=== PATIENT | female | born 1965 | race African-American/Black ===

== ENCOUNTER → 2017-06-29 | Outpatient (CLI) | payer OTHER ==
[~2017-06-29] MED LIST: NADO40TA PO
--- NOTE | 2017-06-29 18:15 | Diagnostic Imaging Report ---
INDICATION: Routine screening. Comparison is made with prior exam from 04/29/2014 and 04/17/2012. The current study was also evaluated with a Computer Aided Detection (CAD) system. FINDINGS: Scattered fibroglandular densities are noted bilaterally. There are benign calcifications bilaterally. No dominant mass or malignant-appearing microcalcifications are seen. The axillae are unremarkable. IMPRESSION: No mammographic features suspicious for malignancy are identified. ACR BI-RADS Category 2: Benign findings. Result letter will be mailed to the patient. Note: At least 10% of breast cancer is not imaged by mammography. Dictated by: Dictated on workstation # [id number]
== END ==
LOC: RAD 08:47
PROVIDERS: ATTEND Nurse Practitioner Family
DX: Z12.31 Encounter for screening mammogram for malignant neoplasm of breast (principal)
CPT/HCPCS: 77067

== ENCOUNTER 2018-02-02 23:12 | Emergency (ER) | payer MEDICAID ==
[~2018-02-02] VITALS: Ht 170.2 cm; Wt 68.0 kg
--- OUTSIDE RECORDS SUMMARY | 2018-02-02 23:34 | XMS REPORT ---
Author Author SUNNY WONG [facility] Address [address] [place] [address] Care Team Providers Care Network Support Analyst Name Role Phone SUNNY WONG Unavailable PROBLEMS Type Condition ICD9-CM Code [id number] Code Onset Dates Condition Status SNOMED Code Problem Lumbago with sciatica, left side M54.42 Active 499121169 Problem Tachycardia with heart rate 121-140 beats per minute R00.0 Active 5254968 Problem Controlled type 2 diabetes mellitus without complication, without long -term current use of insulin E11.9 Active 154709063 Problem Gait disturbance R26.9 Active 46114710 Problem Lumbago with sciatica, right side M54.41 Active 854288458 Problem Enlarged thyroid gland E04.9 Active 1041824 Problem Body mass index (BMI) of 45.0-49.9 in adult Z68.42 Active 971442231 Problem Morbid (severe) obesity due to excess calories E66.01 Active 268840502 Problem Dermatomyositis M33.90 Active 135232347 Problem Mood disorder F39 Active 79672995 Problem Diabetes type 2, controlled E11.9 Active 20693966 Problem Menopause Z78.0 Active 722157953 Problem Allergic rhinitis due to pollen J30.1 Active 71640854 Problem Other chronic pain G89.29 Active 84495592 Problem Arthritis M19.90 Active 5150321 Problem Osteoarthritis of right knee, unspecified osteoarthritis type M17.9 Active 008623374 Problem Plantar warts B07.0 Active 00627038 Problem Anxiety F41.9 Active 04432561 Problem Plantar wart of both feet B07.0 Active [id number] ALLERGIES No Information ENCOUNTERS Encounter Location Date Diagnosis [facility] [address] [facility] [id number] [address] Jan, [facility] [address] [facility] [id number], [place] [address] Jan, [facility] [address] [address]- [address] Jan, [facility] [address] [address]- 2004 05 Jan, 2018 [facility] [address] 33322- 1242 Jan, Irritation of left eye H57.8 and BMI 40.0-44.9, adult Z68.41 [facility] [address] 32366- 4653 Dec, [facility] [address] 84378- 1226 Dec, Acute right ankle pain M25.571 [place] [address] 82934- 2486 Dec, Other chronic pain G89.29 ; Diabetes type 2, controlled E11.9 ; Gait disturbance R26.9 ; Weakness R53.1 and Muscle spasm M62.838 [place] [address] 95486- 3829 Dec, Acute non-recurrent maxillary sinusitis J01.00 [facility] [id number] [place] [address] 34294- 6213 Dec, [facility] [address] 36141- 1443 Dec, [facility] [id number] [place] [address] 72225- 6041 Dec, Acute non-recurrent maxillary sinusitis J01.00 [facility] [address] 25705- 3290 Dec, Lumbago with sciatica, right side M54.41 and Lupus erythematosus L93.0 [facility] [address] 56840- 3860 Dec, Mood disorder F39 [facility] [address] [place] [address] 64694- 7461 Dec, Mood disorder F39 [facility] [id number] [place] [address] 90522- 2727 Dec, [facility] [id number] [place] [address] 71542- 0045 Dec, Acute right ankle pain M25.571 [facility] [id number] [place] [address] 10677- 1713 Nov, Lumbar radiculopathy M54.16 [facility] [id number] [place] [address] 66823- 6578 Nov, [facility] [id number] [place] [address] 69952- 2398 Nov, Mood disorder F39 [facility] [id number] [place] [address] 61668- 0686 Nov, Lumbago with sciatica, right side M54.41 and Other chronic pain G89.29 [facility] [id number] [place] [address] 79353- 2492 Nov, Acute right ankle pain M25.571 [facility] [id number] [place] [address] 39054- 7066 Nov, [facility] [id number] [place] [address] 13881- 0953 Oct, [facility] [id number] [place] [address] 25516- 1941 Oct, Plantar wart of both feet B07.0 [facility] [id number] [place] [address] 66047- 9942 Oct, [facility] [id number] [place] [address] 02145- 2526 Oct, Acute right ankle pain M25.571 and Plantar wart of both feet B07.0 [place] [id number] [place] [address] 13618- 9790 September, Other chronic pain G89.29 [facility] [address] 81413- 7967 September, Other chronic pain G89.29 [place] [address] 18842- 4803 September, Other chronic pain G89.29 [place] [address] 07689- 5953 Aug, Mood disorder F39 [place] [address] 34058- 3274 Aug, Other chronic pain G89.29 ; Controlled type 2 diabetes mellitus without complication, without long-term current use of insulin E11.9 ; Low back pain M54.5 and Tinea corporis B35.4 [place] [id number] [place] [address] 46840- 1395 Aug, Mood disorder F39 and Anxiety F41.9 [place] [address] 86974- 4709 Aug, Mood disorder F39 and Anxiety F41.9 [place] [id number] [place] [address] 56342- 6868 Jul, [facility] [id number] [place] [address] 89635 -4854 Jul, Scabies B86 and BMI 45.0-49.9, adult Z68.42 [place] [address] 98210- 9710 Jul, [place] [address] 62163- 1274 Jul, Mood disorder F39 and Anxiety F41.9 [place] [address] 54796- 4863 Jul, [facility] [address] [place] [address] 67077 -9635 27 Jun, 2017 Bronchitis J40 ; Dark urine R82.99 and BMI 45.0-49.9, adult Z68.42 [place] [address] [place] [address] 32831- 5613 14 Jun, 2017 Acute pain of right shoulder M25.511 and Acute pain of right knee M25.561 [place] [id number] [place] [address] 67545- 5730 May, BMI 40.0-44.9, adult Z68.41 ; Controlled type 2 diabetes mellitus without complication, without long-term current use of insulin E11.9 ; Muscle cramping R25.2 ; Hot flashes R23.2 ; Mood disorder F39 ; Anxiety F41.9 and Morbid (severe) obesity due to excess calories E66.01 [place] [address] [place] [address] 82239- 6632 May, BMI 40.0-44.9, adult Z68.41 ; Controlled type 2 diabetes mellitus without complication, without long-term current use of insulin E11.9 ; Muscle cramping R25.2 and Hot flashes R23.2 [place] [address] [place] [address] 28853- 0008 May, Tachycardia with heart rate 121-140 beats per minute R00.0 ; Morbid (severe) obesity due to excess calories E66.01 ; Diabetes type 2, controlled E11.9 and Enlarged thyroid gland E04.9 [place] [address] [place] [address] 60798- 9638 May, Encounter for well woman exam with routine gynecological exam Z01.419 ; Diabetes type 2, controlled E11.9 ; Enlarged thyroid gland E04.9 ; Acute cystitis with hematuria N30.01 ; Screen for STD (sexually transmitted disease) Z11.3 ; Tachycardia with heart rate 121-140 beats per minute R00.0 ; Body mass index (BMI) of 45.0-49.9 in adult Z68.42 ; Morbid (severe) obesity due to excess calories E66.01 ; Dysuria R30.0 and Screening breast examination Z12.31 [facility] [id number] [place] [address] 50049- 7132 Apr, Mood disorder F39 ; Other chronic pain G89.29 and Anxiety F41.9 [facility] [address] 13199- 5644 Apr, Lumbago with sciatica, left side M54.42 and Other chronic pain G89.29 [place] [address] 172333- 4743 Apr, Lupus erythematosus L93.0 [facility] [id number] [place] [address] 61502- 8713 Mar, Plantar wart of both feet B07.0 [facility] [address] 43110- 0074 Mar, Lupus erythematosus L93.0 and Sinus drainage J34.89 [facility] [address] 90692- 6959 Mar, Mood disorder F39 ; Other chronic pain G89.29 and Anxiety F41.9 [facility] [id number] [place] [address] 09339- 8650 Mar, Mood disorder F39 ; Arthritis M19.90 and Plantar warts B07.0 [facility] [id number] [place] [address] 80131- 2967 Feb, Lupus erythematosus L93.0 [facility] [id number] [place] [address] 20343- 6095 Feb, Other chronic pain G89.29 [facility] [id number] [place] [address] 73609- 2067 Feb, Mood disorder F39 and Anxiety F41.9 [facility] [address] [id number] [address]- 3953 Jan, [facility] [address] [place] [address] 92003- 8630 Jan, Mood disorder F39 [facility] [address] [place] [address] 63885- 9073 Dec, Nail, ingrown L60.0 [facility] [id number] [place] [address] 77855- 6006 Dec, Nail, ingrown L60.0 [facility] [id number] [place] [address] 32962- 2736 Nov, Mood disorder F39 and Anxiety F41.9 [place] [id number] [place] [address] 67893- 6740 Nov, Sinus drainage J34.89 ; Hot flashes R23.2 ; Anxiety F41.9 and Diabetes type 2, controlled E11.9 [facility] [id number] [place] [address] 86087- 1456 Nov, Nail, ingrown L60.0 [place] [id number] [place] [address] 82279- 4659 Oct, Anxiety F41.9 and Mood disorder F39 [place] [id number] [place] [address] 10172- 7884 Oct, Nail, ingrown L60.0 and Anxiety F41.9 [facility] [address] [place] [address] 02965- 9851 Oct, Lupus erythematosus L93.0 [facility] [id number] [place] [address] 40311- 1628 September, [facility] [address] [place] [address] 64015- 9329 September, [facility] [id number] [place] [address] 98632- 7574 September, Lupus erythematosus L93.0 [facility] [address] [place] [address] 57192- 6387 Aug, [facility] [id number] [place] [address] 81393- 1256 Aug, Mood disorder F39 and Anxiety F41.9 [facility] [id number] [place] [address] 28948- 9540 Aug, Lupus erythematosus L93.0 ; Diabetes type 2, controlled E11.9 and Localized edema R60.0 [facility] [id number] [place] [address] 94489- 7926 Aug, [facility] [id number] [place] [address] 89359- 4878 Jul, Anxiety F41.9 and Mood disorder F39 [facility] [id number] [place] [address] 57156- 4665 Jul, Diabetes type 2, controlled E11.9 [facility] [id number] [place] [address] 58484- 7976 Jun, Anxiety F41.9 [facility] [id number] [place] [address] 87683- 3645 May, [facility] [id number] [place] [address] 82305- 4085 May, [facility] [id number] [place] [address] 62596- 4796 May, Nausea R11.0 ; Other chronic pain G89.29 and Pain in right knee M25.561 [facility] [id number] [place] [address] 07041- 2947 May, [facility] [id number] [place] [address] 85541- 5574 Apr, Tear of medial meniscus of right knee, current, unspecified tear type, subsequent encounter S83.241D and Tear of lateral meniscus of right knee, current, unspecified tear type, subsequent encounter S83.281D [facility] [id number] [place] [address] 20622- 6824 09 Apr, 2016 Anxiety F41.9 and Mood disorder F39 [facility] [id number] [place] [address] 00732- 6062 Apr, Anxiety F41.9 [facility] [address] 05296- 2125 Apr, [facility] [id number] [place] [address] 71958- 6842 Mar, [place] [address] 78399- 6683 Mar, Lupus erythematosus L93.0 and Diabetes type 2, controlled E11.9 [place] [address] 55519- 4215 Mar, Mood disorder F39 [facility] [id number] [place] [address] 07409- 1602 Mar, Tear of lateral meniscus of right knee, current, unspecified tear type, initial encounter S83.281A and Osteoarthritis of right knee, unspecified osteoarthritis type M17.9 [place] [id number] [place] [address] 16320- 2654 Mar, [facility] [id number] [place] [address] 16190- 3003 Feb, Mood disorder F39 [facility] [id number] [place] [address] 74363- 6062 Feb, Rash R21 [facility] [address] 90658- 6981 Feb, [facility] [id number] [place] [address] 39654- 5616 Jan, Other chronic pain G89.29 and Muscle spasm M62.838 [place] [address] [place] [address] 19087- 9087 Jan, Mood disorder F39 [place] [id number] [place] [address] 33132- 2736 Jan, Pain in right knee M25.561 ; Other chronic pain G89.29 and Muscle spasm M62.838 [place] [id number] [place] [address] 48978- 8361 Dec, [place] [id number] [place] [address] 74811- 5965 Dec, [place] [id number] [place] [address] 13938- 7843 Nov, [place] [id number] [place] [address] 16969- 2068 Nov, Mood disorder F39 [place] [id number] [place] [address] 91119- 9528 Nov, Diabetes type 2, controlled E11.9 ; Bronchitis J40 ; Edema, unspecified type R60.9 ; Weight gain R63.5 and Right knee pain, unspecified chronicity M25.561 [place] [id number] [place] [address] 53351- 4325 Oct, Mood disorder F39 [place] [address] [place] [address] 05612- 8826 Oct, Lupus erythematosus L93.0 and Bilateral edema of lower extremity R60.0 [place] [address] [place] [address] 19636- 2790 Oct, Mood disorder F39 and Anxiety F41.9 [place] [id number] [place] [address] 47201- 9881 September, Mood disorder F39 ; Anxiety F41.9 and Anger reaction R45.4 [place] [id number] [place] [address] 01750- 0103 September, Diabetes type 2, controlled E11.9 ; Edema, unspecified type R60.9 and Fatigue, unspecified type R53.83 [facility] [id number] [place] [address] 71713- 4343 Aug, Mood disorder F39 and Generalized anxiety disorder F41.1 [facility] [id number] [place] [address] 74568- 7933 Aug, Diabetes type 2, controlled E11.9 ; Sinusitis J32.9 and Mood disorder F39 [facility] [id number] [place] [address] 88949- 2938 Aug, Lupus erythematosus L93.0 [facility] [id number] [place] [address] 42750- 3480 Aug, [facility] [id number] [place] [address] 63538- 9798 Aug, [facility] [id number] [place] [address] 45920- 0255 Jul, Diabetes type 2, controlled E11.9 [facility] [id number] [place] [address] 36263- 9774 Jul, Mood disorder F39 and Depression F32.9 [facility] [id number] [place] [address] 26723- 0302 Jul, Lupus erythematosus L93.0 and Diabetes type 2, controlled E11.9 [facility] [id number] [place] [address] 17718- 5583 Jul, Mood disorder F39 and Anxiety F41.9 [facility] [id number] [place] [address] 58527- 5220 Jul, [facility] [id number] [place] [address] 82522- 8351 Jul, [facility] [id number] [place] [address] 04993- 5492 Jun, Mood disorder F39 and Anxiety F41.9 [facility] [address] [address]- 9164 Jun, Mood disorder F39 [facility] [id number] [place] [address] 44764- 0335 Jun, [facility] [id number] [place] [address] 04247- 9008 Jun, [facility] [id number] [place] [address] 47850- 7991 Jun, Mood disorder F39 [facility] [id number] [place] [address] 57946- 0995 Jun, [facility] [id number] [place] [address] 95314- 6755 May, [facility] [id number] [place] [address] 86449- 2037 May, [facility] [id number] [place] [address] 68586- 5144 May, [facility] [id number] [place] [address] 56810- 6560 May, [facility] [id number] [place] [address] 81256- 6502 May, Anxiety F41.9 ; Dermatomyositis M33.90 and Diabetes type 2, controlled E11.9 [facility] [address] [place] [address] 93656 -8324 May, Sinusitis J32.9 and Cough R05 [facility] [id number] [place] [address] 82521- 3239 May, Mood disorder F39 [facility] [id number] [place] [address] 20127- 1329 May, Adjustment disorder with mixed anxiety and depressed mood F43.23 [facility] [id number] [place] [address] 35719- 0554 Apr, [facility] [address] [place] [address] 86772- 0595 Apr, [facility] [id number] [place] [address] 798996- 4462 Apr, Generalized anxiety disorder F41.1 and Mood disorder F39 [facility] [id number] [place] [address] 31964- 1761 Mar, [facility] [id number] [place] [address] 86996- 0981 Mar, [facility] [id number] [place] [address] 05493- 2819 Mar, [facility] [id number] [place] [address] 59561- 8500 Mar, Mood disorder F39 [facility] [id number] [place] [address] 90664- 1628 Feb, [facility] [id number] [place] [address] 41909- 6338 Feb, Diabetes E11.9 and Bronchitis J40 [facility] [id number] [place] [address] 75955- 9083 Feb, [facility] [id number] [place] [address] 45819- 8866 Feb, [facility] [id number] [place] [address] 18989- 3657 Feb, Major depression, recurrent, full remission F33.42 and KELLY ( generalized anxiety disorder) F41.1 [facility] [id number] [place] [address] 43735- 8232 Feb, [facility] [id number] [place] [address] 90987- 2402 Feb, Single major depressive episode, in partial or unspecified remission F32.5 [facility] [address] [place] [address]- 5638 Jan, Fatigue 780.79 [facility] [id number] [place] [address] 74969- 4859 Jan, [facility] [id number] [place] [address] 12153- 1554 Jan, Diabetes with other specified manifestations, type II or unspecified type, not stated as uncontrolled 250.80 [facility] [id number] [place] [address] 28131- 7694 Jan, [facility] [id number] [place] [address] 58923- 5665 Dec, Hot flashes 627.2 ; Memory loss 780.93 and Joint pain 719.40 [place] [id number] [place] [address] 24447- 2436 Dec, Major depression, recurrent 296.30 ; Generalized anxiety disorder 300.02 ; Adjustment disorder with depressed mood 309.0 and No condition on [place] II V71.09 [place] [address] [place] [address] 60202- 3528 Dec, [place] [id number] [place] [address] 52666- 5915 Nov, Cognitive and neurobehavioral dysfunction 294.9 ; Major depressive disorder, recurrent episode, moderate degree 296.32 and Anxiety state , unspecified 300.00 [place] [address] [address]- 5872 Nov, [facility] [id number] [address]- 1206 Nov, Bronchitis 490 and Diabetes with other specified manifestations, type II or unspecified type, not stated as uncontrolled 250.80 [facility] [address] [place] [address] 69963- 4237 Nov, Major depressive disorder, recurrent episode, moderate 296.32 and Anxiety disorder, unspecified 300.00 [place] [id number] [address]- 5176 Nov, Anxiety, generalized 300.02 ; Intermittent explosive disorder 312.34 ; No condition on [place] II V71.09 and No condition on axis III V71.09 [address] [place] [address] 98921- 2903 Oct, Diabetes with other specified manifestations, type II or unspecified type, not stated as uncontrolled 250.80 ; Urinary tract infection, site not specified 599.0 and Bronchitis 490 [id number] [place] [address] Oct, Intermittent explosive disorder 312.34 ; Bipolar 1 disorder , depressed, moderate 296.52 ; Major depression, chronic 296.20 ; No condition on [place] II V71.09 and No condition on axis III V71.09 [place] [id number] [place] [address] Oct, Major depressive disorder, recurrent episode, moderate 296.32 ; Anxiety state 300.00 ; Cognitive decline 294.9 and No condition on [place] II V71.09 [place] [id number] [place] [address] Oct, [place] [id number] [place] [address] Oct, Major depressive disorder, recurrent episode, moderate 296.32 ; Anxiety disorder, unspecified 300.00 and Persistent disorder of initiating or maintaining sleep 307.42 [id number] [place] [address] 90255- [address] September, Diabetes with other specified manifestations, type II or unspecified type, not stated as uncontrolled 250.80 ; Memory loss 780.93 and Cognitive complaints 799.[id number] [place] [address] September, No condition on [place] II V71.09 ; Major depression, recurrent 296.30 and Persistent mood [affective] disorder, unspecified 296.90 [address] [id number] [place] [address]- 2886 28 Aug, 2014 [facility] [place] [facility] [address] [id number] [place] [address] 6348 14 Aug, 2014 [facility] [place] [facility] [address] [id number] [place] [address] 13 Aug, 2014 [facility] [place] [facility] [address] [facility] [id number] [place] [address]- 6357 Jul, 2014 [facility] [place] [facility] [address] [id number] [place] [address]- 3362 Jul, [facility] [place] [facility] [address] [id number] [place] [address] Jul, [facility] [place] [facility] [address] [facility] [id number] [place] [address]- 3281 Jul, [facility] [place] [facility] [address] [facility] [id number] [place] [address]- 6440 Jul, [facility] [place] [facility] [address] [facility] [id number] [place] [address]- 5349 Jun, 2014 [facility] [place] [facility] [address] [facility] [id number] [place] [address]- 6781 Jun, 2014 [facility] [place] [facility] [address] [facility] [id number] [place] [address]- 8603 Jun, 2014 [facility] [place] [facility] [address] [facility] [id number] [place] [address]- 4374 13 Jun, 2014 [facility] [place] [facility] [address] [facility] [id number] [place] [address]- 2936 Jun, 2014 [facility] [place] [facility] [address] [facility] [id number] [place] [address]- 3015 Jun, 2014 [facility] [place] [facility] [address] [facility] [id number] [place] [address]- 1740 05 Jun, 2014 [facility] [place] [facility] [address] [facility] [id number] [place] [address]- 1756 Jun, 2014 [facility] [place] [facility] [address] [id number] [place] [address]- 3467 Jun, 2014 [facility] [place] [facility] [address] [id number] [place] [address]- 0281 Jun, 2014 [facility] [place] [facility] [address] [id number] [place] [address]- 3580 Jun, 2014 [facility] [place] [facility] [address] [id number] [place] [address]- 2158 Jun, 2014 [facility] [place] [facility] [address] [id number] [place] [address]- 8272 Jun, 2014 [facility] [place] [facility] [address] [id number] [place] [address]- 0485 May, [facility] [place] [facility] [address] [facility] [id number] [place] [address]- 5587 May, [facility] [place] [facility] [address] [id number] [place] [address]- 2210 Apr, [facility] [place] [facility] [address] [id number] [place] [address]- 9339 Apr, [facility] [place] [facility] [address] [id number] [place] [address]- 4703 Apr, [facility] [place] [facility] [address] [id number] [place] [address]- 6965 Apr, [facility] [place] [facility] [address] [id number] [place] [address]- 5775 Apr, [facility] [place] [facility] [address] [id number] [place] [address]- 7254 Apr, [facility] [place] [facility] [address] [id number] [place] [address]- 9471 Apr, [facility] [place] [facility] [address] [id number] [place] [address]- 5731 Apr, [facility] [place] [facility] [address] [id number] [place] [address]- 9247 15 Apr, 2014 [facility] [address] [id number] [place] [address]- 1018 15 Apr, 2014 [facility] [place] [facility] [address] [id number] [place] [address]- 3660 Apr, [facility] [place] [facility] [address] [id number] [place] [address]- 6166 Apr, [facility] [place] [facility] [address] [id number] [place] [address]- 1070 Apr, [facility] [place] [facility] [address] [id number] [place] [address]- 7041 Apr, [facility] [place] [facility] [address] [id number] [place] [address]- 3452 Apr, [facility] [place] [facility] [address] [id number] [place] [address]- 7262 Apr, [facility] [place] [facility] [address] [id number] [place] [address]- 9360 Apr, [facility] [place] [facility] [address] [id number] [place] [address]- 1781 Apr, [facility] [place] [facility] [address] [id number] [place] [address]- 8788 Apr, [facility] [place] [facility] [address] [id number] [place] [address]- 9381 Apr, [facility] [place] [facility] [address] [id number] [place] [address]- 0155 Mar, [facility] [place] [facility] [address] [id number] [place] [address]- 1889 Mar, [facility] [place] [facility] [address] [id number] [place] [address]- 4119 Mar, [facility] [place] [facility] [address] [id number] [place] [address]- 4613 Mar, [facility] [place] [facility] [address] [id number] [place] [address]- 1754 Mar, [facility] [place] [facility] [address] [id number] [place] [address]- 7692 Mar, [facility] [place] [facility] [address] [id number] [place] [address]- 0170 Mar, [facility] [place] [facility] [address] [id number] [place] [address]- 1186 Mar, [facility] [place] [facility] [address] [id number] [place] [address]- 6033 Mar, [facility] [place] [facility] [address] [id number] [place] [address]- 2150 Mar, [facility] [place] [facility] [address] [id number] [place] [address]- 6152 Mar, [facility] [place] [facility] [address] [id number] [place] [address]- 2766 Mar, [facility] [place] [facility] [address] [id number] [place] [address]- 7827 Mar, [facility] [place] [facility] [address] [id number] [place] [address]- 9687 Feb, [facility] [place] [facility] [address] [id number] [place] [address]- 2271 Feb, [facility] [place] [facility] [address] [id number], [place] [address]- 7260 Feb, [facility] [place] [facility] [address] [id number] [place] [address]- 5175 Feb, [facility] [place] [facility] [address] [id number] [place] [address]- 4646 Feb, [facility] [place] [facility] [address] [id number] [place] [address]- 8190 Feb, [facility] [place] [facility] [address] [id number] [place] [address]- 0357 Feb, [facility] [place] [facility] [address] [id number] [place] [address]- 7001 Feb, [facility] [place] [facility] [address] [id number] [place] [address]- 3354 Feb, [facility] [place] [facility] [address] [id number] [place] [address]- 6239 Feb, [facility] [place] [facility] [address] [id number] [place] [address]- 5885 13 Feb, 2014 [facility] [place] [facility] [address] [id number] [place] [address]- 2841 Feb, [facility] [place] [facility] [address] [id number] [place] [address]- 2904 Feb, [facility] [place] [facility] [address] [id number] [place] [address]- 8937 Feb, [facility] [place] [facility] [address] [id number] [place] [address]- 3208 07 Feb, 2014 [facility] [place] [facility] [address] [id number] [place] [address]- 5049 10 Jan, 2013 [facility] [place] [facility] [address] [id number] [place] [address]- 4213 08 Jan, 2013 [facility] [place] [facility] [address] [id number] [place] [address]- 2375 08 Jan, 2013 [facility] [place] [facility] [address] [id number] [place] [address]- 0575 08 Jan, 2013 [facility] [place] [facility] [address] [id number] [place] [address]- 8183 08 Jan, 2013 [facility] [place] [facility] [address] [id number] [place] [address]- 1915 Dec, [facility] [place] [facility] [address] [id number] [place] [address]- 1783 Dec, [facility] [place] [facility] [address] [id number] [place] [address]- 5860 Dec, [facility] [place] [facility] [address] [id number] [place] [address]408 Dec, [facility] [place] [facility] [address] [id number] [place] [address]- 8937 Nov, [facility] [place] [facility] [address] [id number] [place] [address]- 1418 Nov, [facility] [place] [facility] [address] [id number] [place] [address]- 1623 Nov, [facility] [place] [facility] [address] [id number] [place] [address]- 3191 Nov, [facility] [place] [facility] [address] [id number] [place] [address]- 5395 Nov, [facility] [place] [facility] [address] [id number] [place] [address]- 7270 Nov, [facility] [place] [facility] [address] [id number] [place] [address]- 3499 Nov, [facility] [place] [facility] [address] [id number] [place] [address]- 7238 Nov, [facility] [place] [facility] [address] [id number] [place] [address]- 7171 Nov, [facility] [place] [facility] [address] [id number] [place] [address]- 7664 Nov, [facility] [place] [facility] [address] [id number] [place] [address]- 9692 Oct, [facility] [place] [facility] [address] [id number] [place] [address]- 9415 Oct, [facility] [place] [facility] [address] [id number] [place] [address]- 9600 September, [facility] [place] [facility] [address] [id number] [place] [address]- 3001 September, [facility] [place] [facility] [address] [id number] [place] [address]- 0950 September, [facility] [place] [facility] [address] [id number] [place] [address]- 6566 September, [facility] [place] [facility] [address] [id number] [place] [address]- 2291 Aug, [facility] [place] [facility] [address] [id number] [place] [address]- 4338 Aug, [facility] [place] [facility] [address] [id number] [place] [address]- 4551 Aug, [facility] [place] [facility] [address] [id number] [place] [address]- 1663 Jul, [facility] [place] [facility] [address] [id number] [place] [address]- 1404 Jul, [facility] [place] [facility] [address] [id number] [place] [address]- 7502 Jul, [facility] [place] [facility] [address] [id number] [place] [address]- 8837 Jul, [facility] [place] [facility] [address] [id number] [place] [address]- 2072 May, [facility] [place] [facility] [address] [id number], [place] [address]- 9306 May, [facility] [place] [facility] [address] [id number], [place] [address]- 4139 May, [facility] [place] [facility] [address] [id number] [place] [address]- 8940 Mar, [facility] [place] [facility] [address] [id number] [place] [address]- 0445 15 Mar, 2013 [facility] [place] [facility] [address] [id number] [place] [address]- 7270 Mar, [facility] [place] [facility] [address] [id number] [place] [address]- 1571 Mar, [facility] [place] [facility] [address] [id number] [place] [address]- 6653 Feb, [facility] [place] [facility] [address] [id number] [place] [address]- 0426 Feb, [facility] [place] [facility] [address] [id number] [place] [address]- 9568 Feb, [facility] [place] [facility] [address] [id number] [place] [address]- 0763 Jan, [facility] [place] [facility] [address] [id number] [place] [address]- 9060 Jan, [facility] [place] [facility] [address] [id number] [place] [address]- 7160 Jan, [facility] [place] [facility] [address] [id number] [place] [address]- 4945 Dec, [facility] [place] [facility] [address] [id number] [place] [address]- 4998 Dec, [facility] [place] [facility] [address] [id number] [place] [address]- 5061 Dec, [facility] [place] [facility] [address] [id number] [place] [address]- 8722 Dec, [facility] [place] [facility] [address] [id number] [place] [address]- 5048 Nov, [facility] [place] [facility] [address] [id number] [place] [address]- 4059 Oct, [facility] [place] [facility] [address] [id number] [place] [address]- 5022 Oct, [facility] [place] [facility] [address] [id number] [place] [address]- 7346 September, [facility] [place] [facility] [address] [id number] [place] [address]- 5984 September, [facility] [place] [facility] [address] [id number] [place] [address]- 3829 September, [facility] [address] [id number] [place] [address]- 5687 30 Aug, 2012 [facility] [address] [id number] [place] [address]- 7085 Aug, [facility] [address] [id number] [place] [address]- 4813 Aug, [facility] [address] [id number] [place] [address]- 7992 Aug, [facility] [address] [id number] [place] [address]- 7831 Jul, [facility] [address] [id number] [place] [address]- 7948 Jul, [facility] [address] [id number] [place] [address]- 2385 Jul, [facility] [address] [id number] [place] [address]- 8475 15 Jul, 2012 [facility] [address] [id number] [place] [address]- 6883 14 Jul, [address] [facility] [address] [id number] [place] [address]- 8916 Jul, [facility] [address] [id number], [place] [address]- 9123 Jul, [facility] [address] [id number] [place] [address]- 6978 Jun, [facility] [place] [facility] [address] [id number] [place] [address]- 1903 Jun, [facility] [place] [facility] [address] [id number] [place] [address]- 6500 Jun, [facility] [address] [id number], [place] [address]- 3263 Jun, [facility] [address] [id number] [place] [address]- 2461 May, [facility] [place] [facility] [address] [id number] [place] [address]- 1877 May, [facility] [address] [facility] [id number] [place] [address]- 9719 May, [facility] [place] [facility] [address] [id number] [place] [address]- 0476 May, [facility] [address] [id number] [place] [address]- 1157 May, [facility] [address] [id number] [place] [address]- 1033 Apr, [facility] [address] [id number] [place] [address]- 6588 Apr, [facility] [address] [id number] [place] [address]- 0860 Mar, [facility] [address] [id number] [place] [address]- 1815 Mar, [facility] [address] [id number] [place] [address]- 3536 Mar, [facility] [address] [id number] [place] [address]- 5339 Mar, [facility] [place] [facility] [address] [id number], [place] [address]- 8471 Mar, [facility] [place] [facility] [address] [id number] [place] [address]- 4190 Mar, [facility] [place] [facility] [address] [facility] [id number] [place] [address]- 9553 Mar, [facility] [place] [facility] [address] [id number] [place] [address]- 1353 Mar, [facility] [place] [facility] [address] [id number] [place] [address]- 8716 Mar, [facility] [place] [facility] [address] [id number] [place] [address]- 0752 Mar, [facility] [place] [facility] [address] [id number] [place] [address]- 6406 Feb, [facility] [place] [facility] [address] [id number] [place] [address]- 4471 Feb, [facility] [place] [facility] [address] [id number] [place]58 Feb, [facility] [place] [facility] [address] [id number] [place] [address]- 3958 Feb, [facility] [place] [facility] [address] [id number] [place] [address]- 8855 Feb, [facility] [place] [facility] [address] [id number] [place] [address]- 7402 Feb, [facility] [place] [facility] [address] [id number] [place] [address]- 6086 Feb, [facility] [place] [facility] [address] [id number] [place] [address]- 2348 Jan, [facility] [place] [facility] [address] [id number] [place] [address]- 7680 Jan, [facility] [place] [facility] [address] [id number] [place] [address]- 9968 Dec, [facility] [place] [facility] [address] [id number] [place] [address]- 2425 Dec, [facility] [place] [facility] [address] [id number] [place] [address]- 6586 Dec, [facility] [place] [facility] [address] [id number] [place] [address]- 7336 Dec, [facility] [place] [facility] [address] [id number] [place] [address]- 5709 Dec, [facility] [place] [facility] [address] [id number] [place] [address]- 6987 Dec, [facility] [place] [facility] [address] [id number] [place] [address]- 6936 Nov, [facility] [place] [facility] [address] [id number] [place] [address]- 5220 Nov, [facility] [place] [facility] [address] [id number] [place] [address]- 3417 Nov, [facility] [place] [facility] [address] [id number] [place] [address]- 9785 Nov, [facility] [place] [facility] [address] [id number] [place] [address]- 3120 September, [facility] [place] [facility] [address] [id number] [place] [address]- 6336 September, [facility] [place] [facility] [address] [id number] [place] [address]- 5689 September, [facility] [place] [facility] [address] [id number] [place] [address]- 7043 Jul, [facility] [place] [facility] [address] [id number] [place] [address]- 1727 29 Jun, 2011 [facility] [place] [facility] [address] [id number] [place] [address]- 1871 Jun, [facility] [place] [facility] [address] [id number] [place] [address]- 1026 Jun, [facility] [place] [facility] [address] [id number] [place] [address]- 5347 Apr, [facility] [place] [facility] [address] [id number] [place] [address]- 7831 Mar, [facility] [place] [facility] [address] [id number] [place] [address]- 5376 Mar, [facility] [place] [facility] [address] [facility] [id number] [place] [address]- 5753 Feb, [facility] [address] [facility] [id number], [place] [address]- 2380 Feb, [facility] [address] [facility] [id number], [place] [address] Feb, 2011 [place] [address] [facility] [id number], [place] [address] Jul, [facility] [address] [facility] [id number], [place] [address] Feb, IMMUNIZATIONS No Known Immunizations SOCIAL HISTORY Never Assessed REASON FOR VISIT intake PLAN OF CARE Activity Details Follow Up Next Available Reason: F/U VITAL SIGNS MEDICATIONS Medication Instructions Dosage Frequency Start Date End Date Duration Status Benzonatate 100 MG TAKE ONE CAPSULE BY MOUTH THREE TIMES DAILY NEEDED 10 Active PredniSONE 20 mg 1 tablet 24h Active Magnesium Oxide 400 mg Orally Once a day 1 tablet as needed 24h 30 day(s) Active Potassium Chloride Marie ER 20 MEQ TAKE ONE TABLET BY MOUTH ONCE DAILY WITH FOOD 30 Active Omeprazole Active Methotrexate 2.5 MG Orally 1 time per week 6 Active Lisinopril-Hydrochlorothiazide 20-25 MG TAKE ONE TABLET BY MOUTH ONCE DAILY 30 Active [place] 7.5-325 MG Orally every 6 hrs 1 tablet as needed 6h Nov, Active Lasix Active Cymbalta 60 mg Orally Twice a day 1 capsule 12h Aug, Active Victoza Active PredniSONE 20 mg Orally Once a day 2 tablets 24h Nov, Nov, 05 days Active Terbinafine HCl 1 % Externally Twice a day 1 application to affected area 12h Aug, Active Glucocard Expression Test - as directed 24h Nov, 50 Active Folic Acid 1 MG TAKE ONE TABLET BY MOUTH ONCE DAILY (DO NOT TAKE ON DAYS YOU TAKE METHOTREXATE) 30 Active Spironolactone 25 MG TAKE ONE TABLET BY MOUTH ONCE DAILY 30 Active Neurontin 300 MG Orally Three times a day 1 capsule 8h Nov, 30 day(s) Active Furosemide 20 MG TAKE 1 TABLET BY MOUTH ONCE DAILY 30 Active RESULTS No Results PROCEDURES Procedure Date Ordered Result Body Site Psych diagnostic evaluation, established patient December 05, 2017 INSTRUCTIONS MEDICATIONS ADMINISTERED No Known Medications MEDICAL (GENERAL) HISTORY Type Description Date Medical History type II diabetes-dx'd 12/2010 Medical History dysfunctional uterine bleeding--endometrial bx 12/2010 Medical History asthma Medical History hypertension Medical History obesity Medical History anxiety Medical History autoimmune disease Surgical History x1 Hospitalization History child Hospitalization History Asthma
--- OUTSIDE RECORDS SUMMARY | 2018-02-02 23:34 | XMS REPORT ---
Author Author MACY TAMAYO Organization [facility] Address [address] [place] [address] Care Team Providers Care Looping Inspector Name Role Phone MACY TAMAYO Unavailable PROBLEMS Type Condition ICD9-CM Code [id number] Code Onset Dates Condition Status SNOMED Code Problem Lumbago with sciatica, left side M54.42 Active 455822920 Problem Tachycardia with heart rate 121-140 beats per minute R00.0 Active 9076710 Problem Controlled type 2 diabetes mellitus without complication, without long -term current use of insulin E11.9 Active 522418787 Problem Gait disturbance R26.9 Active 65898874 Problem Lumbago with sciatica, right side M54.41 Active 131208541 Problem Enlarged thyroid gland E04.9 Active 2923868 Problem Body mass index (BMI) of 45.0-49.9 in adult Z68.42 Active 319670050 Problem Morbid (severe) obesity due to excess calories E66.01 Active 506924053 Problem Dermatomyositis M33.90 Active 462651449 Problem Mood disorder F39 Active 20966893 Problem Diabetes type 2, controlled E11.9 Active 42974982 Problem Menopause Z78.0 Active 164438791 Problem Allergic rhinitis due to pollen J30.1 Active 21780903 Problem Other chronic pain G89.29 Active 74028617 Problem Arthritis M19.90 Active 3212636 Problem Osteoarthritis of right knee, unspecified osteoarthritis type M17.9 Active 024405685 Problem Plantar warts B07.0 Active 30616361 Problem Anxiety F41.9 Active 46982498 Problem Plantar wart of both feet B07.0 Active [id number] ALLERGIES No Information ENCOUNTERS Encounter Location Date Diagnosis [facility] [address] [facility] [id number] [address] Jan, [facility] [address] [facility] [id number], [place] [address] Jan, [facility] [id number] [place] [address] 87912- 0532 14 Jan, 2018 [facility] [address] 25525- 5816 05 Jan, 2018 [facility] [id number] [place] [address] 01325- 3234 04 Jan, 2018 Irritation of left eye H57.8 and BMI 40.0-44.9, adult Z68.41 [facility] [address] 15335- 6073 Dec, [facility] [address] 48798- 3228 Dec, Acute right ankle pain M25.571 [facility] [place] [address] 76525- 8036 Dec, Other chronic pain G89.29 ; Diabetes type 2, controlled E11.9 ; Gait disturbance R26.9 ; Weakness R53.1 and Muscle spasm M62.838 [facility] [id number] [place] [address] 46161- 5848 Dec, Acute non-recurrent maxillary sinusitis J01.00 [facility] [id number] [place] [address] 21542- 2149 Dec, [facility] [id number] [place] [address] 12646- 5992 Dec, [facility] [id number] [place] [address] 16776- 4979 Dec, Acute non-recurrent maxillary sinusitis J01.00 [facility] [address] 30516- 2948 Dec, Lumbago with sciatica, right side M54.41 and Lupus erythematosus L93.0 [facility] [id number] [place] [address] 63100- 6864 Dec, Mood disorder F39 [facility] [id number] [place] [address] 01268- 3649 Dec, Mood disorder F39 [facility] [id number] [place] [address] 31062- 1813 Dec, [facility] [id number] [place] [address] 08426- 5260 Dec, Acute right ankle pain M25.571 [facility] [id number] [place] [address] 24692- 3574 Nov, Lumbar radiculopathy M54.16 [facility] [id number] [place] [address] 93109- 7533 Nov, [facility] [id number] [place] [address] 03554- 3099 Nov, Mood disorder F39 [facility] [id number] [place] [address] 36267- 2588 Nov, Lumbago with sciatica, right side M54.41 and Other chronic pain G89.29 [facility] [id number] [place] [address] 04484- 8434 Nov, Acute right ankle pain M25.571 [facility] [id number] [place] [address] 09062- 2443 Nov, [facility] [id number] [place] [address] 89390- 9994 Oct, [facility] [id number] [place] [address] 30992- 0208 Oct, Plantar wart of both feet B07.0 [facility] [id number] [place] [address] 27330- 5494 Oct, [facility] [id number] [place] [address] 77117- 3276 Oct, Acute right ankle pain M25.571 and Plantar wart of both feet B07.0 [facility] [id number] [place] [address] 63455- 0350 September, Other chronic pain G89.29 [facility] [place] [address] 82818- 5991 September, Other chronic pain G89.29 [facility] [address] 95688- 6613 September, Other chronic pain G89.29 [facility] [address] 62845- 2544 Aug, Mood disorder F39 [place] [address] 90666- 6732 Aug, Other chronic pain G89.29 ; Controlled type 2 diabetes mellitus without complication, without long-term current use of insulin E11.9 ; Low back pain M54.5 and Tinea corporis B35.4 [facility] [id number] [place] [address] 19950- 8783 Aug, Mood disorder F39 and Anxiety F41.9 [facility] [address] 54021- 3139 Aug, Mood disorder F39 and Anxiety F41.9 [facility] [id number] [place] [address] 50537- 1168 Jul, [facility] [id number] [place] [address] 82770 -6418 Jul, Scabies B86 and BMI 45.0-49.9, adult Z68.42 [facility] [place] [address] 59824- 0930 Jul, [facility] [address] 48009- 0606 Jul, Mood disorder F39 and Anxiety F41.9 [facility] [address] 76269- 8317 Jul, [facility] [address], [place] [address] 27 Jun, 2017 Bronchitis J40 ; Dark urine R82.99 and BMI 45.0-49.9, adult Z68.42 [facility] [place] [id number] [place] [address] 02131- 3759 14 Jun, 2017 Acute pain of right shoulder M25.511 and Acute pain of right knee M25.561 [facility] [id number] [place] [address] 36595- 4348 May, BMI 40.0-44.9, adult Z68.41 ; Controlled type 2 diabetes mellitus without complication, without long-term current use of insulin E11.9 ; Muscle cramping R25.2 ; Hot flashes R23.2 ; Mood disorder F39 ; Anxiety F41.9 and Morbid (severe) obesity due to excess calories E66.01 [facility] [id number] [place] [address] 05328- 5089 May, BMI 40.0-44.9, adult Z68.41 ; Controlled type 2 diabetes mellitus without complication, without long-term current use of insulin E11.9 ; Muscle cramping R25.2 and Hot flashes R23.2 [facility] [place] [id number] [place] [address] 60595- 6864 May, Tachycardia with heart rate 121-140 beats per minute R00.0 ; Morbid (severe) obesity due to excess calories E66.01 ; Diabetes type 2, controlled E11.9 and Enlarged thyroid gland E04.9 [facility] [place] [id number] [place] [address] 10977- 9392 May, Encounter for well woman exam with [...] Dysuria R30.0 and Screening breast examination Z12.31 [facility] [id number] [place] [address] 62602- 5747 Apr, Mood disorder F39 ; Other chronic pain G89.29 and Anxiety F41.9 [facility] [address] 92960- 9615 Apr, Lumbago with sciatica, left side M54.42 and Other chronic pain G89.29 [facility] [id number] [place] [address] 71360- 5611 Apr, Lupus erythematosus L93.0 [facility] [id number] [place] [address] 34711- 6920 Mar, Plantar wart of both feet B07.0 [facility] [address] 35617- 1747 Mar, Lupus erythematosus L93.0 and Sinus drainage J34.89 [facility] [address] 21672- 6659 Mar, Mood disorder F39 ; Other chronic pain G89.29 and Anxiety F41.9 [facility] [id number] [place] [address] 99590- 2215 Mar, Mood disorder F39 ; Arthritis M19.90 and Plantar warts B07.0 [facility] [id number] [place] [address] 16422- 4576 Feb, Lupus erythematosus L93.0 [facility] [address] 83263- 0275 Feb, Other chronic pain G89.29 [facility] [id number] [place] [address] 36625- 4782 Feb, Mood disorder F39 and Anxiety F41.9 [facility] [address] [place] [address]- 5228 Jan, [facility] [id number] [place] [address] 30660- 0694 Jan, Mood disorder F39 [facility] [id number] [place] [address] 52643- 4742 Dec, Nail, ingrown L60.0 [facility] [id number] [place] [address] 31492- 7268 Dec, Nail, ingrown L60.0 [facility] [id number] [place] [address] 73810- 9147 Nov, Mood disorder F39 and Anxiety F41.9 [facility] [id number] [place] [address] 07312- 0105 Nov, Sinus drainage J34.89 ; Hot flashes R23.2 ; Anxiety F41.9 and Diabetes type 2, controlled E11.9 [facility] [id number] [place] [address] 73964- 0303 Nov, Nail, ingrown L60.0 [facility] [id number] [place] [address] 34715- 7536 Oct, Anxiety F41.9 and Mood disorder F39 [facility] [id number] [place] [address] 52229- 8320 Oct, Nail, ingrown L60.0 and Anxiety F41.9 [facility] [id number] [place] [address] 37529- 5483 Oct, Lupus erythematosus L93.0 [facility] [id number] [place] [address] 60483- 2185 September, [facility] [id number] [place] [address] 44372- 7631 September, [facility] [id number] [place] [address] 92402- 3709 September, Lupus erythematosus L93.0 [facility] [address], [place] [address]- 9386 Aug, [facility] [id number] [place] [address] 86447 2546 Aug, Mood disorder F39 and Anxiety F41.9 [facility] [id number] [place] [address] 38781 2546 Aug, Lupus erythematosus L93.0 ; Diabetes type 2, controlled E11.9 and Localized edema R60.0 [facility] [id number] [place] [address] 05974 2546 Aug, [facility] [id number] [place] [address] 02815 2546 Jul, Anxiety F41.9 and Mood disorder F39 [facility] [id number] [place] [address] 83127- 4941 Jul, Diabetes type 2, controlled E11.9 [facility] [id number] [place] [address] 16192- 5192 Jun, Anxiety F41.9 [facility] [id number] [place] [address] 04164 2546 May, [facility] [id number] [place] [address] 80096- 9173 May, [facility] [id number] [place] [address] 57526 2545 May, Nausea R11.0 ; Other chronic pain G89.29 and Pain in right knee M25.561 [facility] [id number] [place] [address] 93640 2546 May, [facility] [id number] [place] [address] 79812- 2549 Apr, Tear of medial meniscus of right knee, current, unspecified tear type, subsequent encounter S83.241D and Tear of lateral meniscus of right knee, current, unspecified tear type, subsequent encounter S83.281D [facility] [id number] [place] [address] 28254- 8437 09 Apr, 2016 Anxiety F41.9 and Mood disorder F39 [facility] [id number] [place] [address] 17945- 5084 Apr, Anxiety F41.9 [facility] [id number] [place] [address] 34920- 2885 Apr, [facility] [id number] [place] [address] 32552- 6039 Mar, [facility] [address] 60639- 6170 Mar, Lupus erythematosus L93.0 and Diabetes type 2, controlled E11.9 [facility] [id number] [place] [address] 76441- 7334 Mar, Mood disorder F39 [facility] [address] 11559- 7897 Mar, Tear of lateral meniscus of right knee, current, unspecified tear type, initial encounter S83.281A and Osteoarthritis of right knee, unspecified osteoarthritis type M17.9 [facility] [id number] [place] [address] 02029- 7236 Mar, [facility] [id number] [place] [address] 96256- 1330 Feb, Mood disorder F39 [facility] [id number] [place] [address] 77458- 1370 Feb, Rash R21 [facility] [address] 55194- 5437 Feb, [facility] [id number] [place] [address] 53274- 1730 Jan, Other chronic pain G89.29 and Muscle spasm M62.838 [facility] [address] [place] [address]- 6940 Jan, Mood disorder F39 [place] [address] [id number] [place] [address] 39874- 6729 Jan, Pain in right knee M25.561 ; Other chronic pain G89.29 and Muscle spasm M62.838 [facility] [place] [id number] [place] [address] 06990- 4788 Dec, [facility] [id number] [place] [address] 20731- 3088 Dec, [facility] [id number] [place] [address] 01515- 8971 Nov, [facility] [id number] [place] [address] 46931- 7421 Nov, Mood disorder F39 [facility] [id number] [place] [address] 46585- 6736 Nov, Diabetes type 2, controlled E11.9 ; Bronchitis J40 ; Edema, unspecified type R60.9 ; Weight gain R63.5 and Right knee pain, unspecified chronicity M25.561 [facility] [id number] [place] [address] 89307- 8335 Oct, Mood disorder F39 [facility] [id number] [place] [address] 47795- 5993 Oct, Lupus erythematosus L93.0 and Bilateral edema of lower extremity R60.0 [facility] [id number] [place] [address] 32785- 1564 Oct, Mood disorder F39 and Anxiety F41.9 [facility] [id number] [place] [address] 71719- 1414 September, Mood disorder F39 ; Anxiety F41.9 and Anger reaction R45.4 [facility] [id number] [place] [address] 28624- 8343 September, Diabetes type 2, controlled E11.9 ; Edema, unspecified type R60.9 and Fatigue, unspecified type R53.83 [facility] [id number] [place] [address] 82075- 1636 Aug, Mood disorder F39 and Generalized anxiety disorder F41.1 [facility] [id number] [place] [address] 96594- 3736 Aug, Diabetes type 2, controlled E11.9 ; Sinusitis J32.9 and Mood disorder F39 [facility] [id number] [place] [address] 24719- 5011 Aug, Lupus erythematosus L93.0 [facility] [id number] [place] [address] 63162- 4696 Aug, [facility] [id number] [place] [address] 62986- 3102 Aug, [facility] [id number] [place] [address] 11306- 5181 Jul, Diabetes type 2, controlled E11.9 [facility] [id number] [place] [address] 79020- 6229 Jul, Mood disorder F39 and Depression F32.9 [facility] [id number] [place] [address] 22399- 1108 Jul, Lupus erythematosus L93.0 and Diabetes type 2, controlled E11.9 [facility] [id number] [place] [address] 49231- 4560 Jul, Mood disorder F39 and Anxiety F41.9 [facility] [id number] [place] [address] 47840- 5076 Jul, [facility] [id number] [place] [address] 62357 2546 Jul, [facility] [id number] [place] [address] 35512- 1294 Jun, Mood disorder F39 and Anxiety F41.9 [facility] [address], [place] [address]- 9947 Jun, Mood disorder F39 [facility] [id number] [place] [address] 55219- 6024 Jun, [facility] [id number] [place] [address] 30676- 9421 Jun, [facility] [id number] [place] [address] 09153- 7515 Jun, Mood disorder F39 [facility] [id number] [place] [address] 79699- 0345 Jun, [facility] [id number] [place] [address] 36860- 1318 May, [facility] [id number] [place] [address] 80824- 6237 May, [facility] [id number] [place] [address] 95072- 5868 May, [facility] [id number] [place] [address] 82516- 0825 May, [facility] [id number] [place] [address] 25716- 8758 May, Anxiety F41.9 ; Dermatomyositis M33.90 and Diabetes type 2, controlled E11.9 [facility] [address], [place] [address] -1456 May, Sinusitis J32.9 and Cough R05 [facility] [address], [place] [address]- 1544 May, Mood disorder F39 [facility] [id number] [place] [address] 78024- 1395 May, Adjustment disorder with mixed anxiety and depressed mood F43.23 [facility] [id number] [place] [address] 94779- 7686 Apr, [facility] [address] [address]- 8609 Apr, [facility] [id number] [place] [address] 59421- 4958 Apr, Generalized anxiety disorder F41.1 and Mood disorder F39 [facility] [id number] [place] [address] 15376- 0973 Mar, [facility] [id number] [place] [address] 53131- 5688 Mar, [facility] [id number] [place] [address] 39580- 0897 Mar, [facility] [id number] [place] [address] 75928- 9628 Mar, Mood disorder F39 [facility] [id number] [place] [address] 70516- 7534 Feb, [facility] [id number] [place] [address] 22210- 3737 Feb, Diabetes E11.9 and Bronchitis J40 [facility] [id number] [place] [address] 67347- 7681 Feb, [facility] [id number] [place] [address] 84855- 7915 Feb, [facility] [id number] [place] [address] 03251- 2040 Feb, Major depression, recurrent, full remission F33.42 and KELLY ( generalized anxiety disorder) F41.1 [facility] [id number] [place] [address] 99434- 0933 Feb, [facility] [id number] [place] [address] 76662- 7229 Feb, Single major depressive episode, in partial or unspecified remission F32.5 [facility] [id number] [place] [address] 01163- 7783 Jan, Fatigue 780.79 [facility] [id number] [place] [address] 34366- 1803 Jan, [facility] [id number] [place] [address] 72272- 1467 Jan, Diabetes with other specified manifestations, type II or unspecified type, not stated as uncontrolled 250.80 [facility] [id number] [place] [address] 17857- 6151 Jan, [facility] [id number] [place] [address] 15227- 5950 Dec, Hot flashes 627.2 ; Memory loss 780.93 and Joint pain 719.40 [facility] [id number] [place] [address] 75124- 7554 Dec, Major depression, recurrent 296.30 ; Generalized anxiety disorder 300.02 ; Adjustment disorder with depressed mood 309.0 and No condition on Finley II V71.09 [facility] [id number] [place] [address] 14798- 5165 Dec, [facility] [id number] [place] [address] 55237- 4348 Nov, Cognitive and neurobehavioral dysfunction 294.9 ; Major depressive disorder, recurrent episode, moderate degree 296.32 and Anxiety state , unspecified 300.00 [place] [id number] [place] [address] 76038- 0759 Nov, [facility] [id number] [place] [address] 82019- 0860 Nov, Bronchitis 490 and Diabetes with other specified manifestations, type II or unspecified type, not stated as uncontrolled 250.80 [facility] [id number] [place] [address] 43338- 4543 Nov, Major depressive disorder, recurrent episode, moderate 296.32 and Anxiety disorder, unspecified 300.00 [place] [address] [id number] [place] [address] [id number]- 6253 Nov, Anxiety, generalized 300.02 ; Intermittent explosive disorder 312.34 ; No condition on Finley II V71.09 and No condition on axis III V71.09 [place] [address] [address] [place] [id number] [place] [address] 81252- 5401 Oct, Diabetes with other specified manifestations, type II or unspecified type, not stated as uncontrolled 250.80 ; Urinary tract infection, site not specified 599.0 and Bronchitis [address] [place] [address] [address] [place] [id number] [place] [address] 46928- 6129 Oct, Intermittent explosive disorder 312.34 ; Bipolar 1 disorder , depressed, moderate 296.52 ; Major depression, chronic 296.20 ; No condition on Finley II V71.09 and No condition on axis III V71.09 [place] [id number] [place] [address] 44168- 5450 Oct, Major depressive disorder, recurrent episode, moderate 296.32 ; Anxiety state 300.00 ; Cognitive decline 294.9 and No condition on Finley II V71.09 [place] [id number] [place] [address] [id number]- 5060 Oct, [place] [id number] [place], [place] [id number] Oct, Major depressive disorder, recurrent episode, moderate 296.32 ; Anxiety disorder, unspecified 300.00 and Persistent disorder of initiating or maintaining sleep 307.42 [place] [id number] [place] [address] 46546- 0241 September, Diabetes with other specified manifestations, type II or unspecified type, not stated as uncontrolled 250.80 ; Memory loss 780.93 and Cognitive complaints 799.59 [place] [id number] [place] [address] 43155- 0846 September, No condition on Finley II V71.09 ; Major depression, recurrent 296.30 and Persistent mood [affective] disorder, unspecified 296.90 [place] [id number] [place], [place] [id number] 28 Aug, 2014 [facility] [place] [facility] [address] [id number] [place] [address] 14 Aug, 2014 [facility] [place] [facility] [address] [facility] [id number] [place] [address] Aug, [facility] [place] [facility] [address] [facility] [id number] [place] [address]24 Jul, 2014 [facility] [place] [facility] [address] [facility] [id number] [place] [address] Jul, [facility] [place] [facility] [address] [facility] [id number] [place] [address]23 Jul, [facility] [place] [facility] [address] [facility] [id number] [place] [address]998 Jul, [facility] [place] [facility] [id number] [place] [address] Jul, [facility] [place] [facility] [address] [facility] [id number] [place] [address]16 Jun, 2014 [facility] [place] [facility] [address] [place] [id number] [place] [address] Jun, 2014 [facility] [place] [facility] [address] [id number] [place] [address] Jun, 2014 [facility] [place] [facility] [id number] [place] [address] Jun, 2014 [facility] [place] [facility] [address] [facility] [id number], [place] [address] Jun, 2014 [facility] [place] [facility] [address] [facility] [id number] [place] [address] Jun, 2014 [facility] [place] [facility] [address] [facility] [id number], [place] [address] Jun, 2014 [facility] [place] [facility] [address] [id number] [address] Jun, 2014 [facility] [place] [facility] [address] [id number] [place] [address] Jun, 2014 [facility] [place] [facility] [address] [id number] [place] [address]803 Jun, 2014 [facility] [place] [facility] [address] [id number] [place] [address]- 6637 Jun, 2014 [facility] [place] [facility] [address] [id number] [place] [address]- 6786 Jun, 2014 [facility] [place] [facility] [address] [id number] [place] [address] Jun, 2014 [facility] [place] [facility] [address] [id number] [place] [address]- 2265 May, [facility] [place] [facility] [address] [facility] [id number] [place] [address]- 4561 May, [facility] [place] [facility] [address] [id number] [place] [address]- 2274 Apr, [facility] [place] [facility] [address] [id number] [place] [address]- 2849 Apr, [facility] [place] [facility] [address] [id number] [place] [address]- 6959 Apr, [facility] [place] [facility] [address] [id number] [place] [address]- 2869 Apr, [facility] [place] [facility] [address] [id number], [place] [address] Apr, [facility] [place] [facility] [address] [id number] [place] [address]- 9192 Apr, [facility] [place] [facility] [address] [id number] [place] [address]- 1450 Apr, [facility] [place] [facility] [address] [id number] [place] [address]- 0225 Apr, [facility] [place] [facility] [address] [id number] [place] [address]- 0855 15 Apr, 2014 [facility] [place] [facility] [address] [id number] [place] [address]- 7282 15 Apr, 2014 [facility] [place] [facility] [address] [id number] [place] [address]- 5756 Apr, [facility] [place] [facility] [address] [id number] [place] [address]- 4676 Apr, [facility] [place] [facility] [address] [id number] [place] [address]- 7410 Apr, [facility] [place] [facility] [address] [id number] [place] [address]- 4279 Apr, [facility] [place] [facility] [address] [id number] [place] [address]- 0214 Apr, [facility] [place] [facility] [address] [id number] [place] [address]- 9711 Apr, [facility] [place] [facility] [address] [id number] [place] [address]- 3196 Apr, [facility] [place] [facility] [address] [id number] [place] [address]- 8207 Apr, [facility] [place] [facility] [address] [id number] [place] [address]- 9050 Apr, [facility] [place] [facility] [address] [id number] [place] [address]- 1091 Apr, [facility] [place] [facility] [address] [id number] [place] [address]- 5730 Mar, [facility] [place] [facility] [address] [id number] [place] [address]- 4339 Mar, [facility] [place] [facility] [address] [id number] [place] [address]- 4627 Mar, [facility] [place] [facility] [address] [id number] [place] [address]- 6224 Mar, [facility] [place] [facility] [address] [id number] [place] [address]- 0158 Mar, [facility] [place] [facility] [address] [id number] [place] [address]- 6557 Mar, [facility] [place] [facility] [address] [id number] [place] [address]- 7718 Mar, [facility] [place] [facility] [address] [id number] [place] [address]- 5285 Mar, [facility] [place] [facility] [address] [id number] [place] [address]- 7835 Mar, [facility] [place] [facility] [address] [id number] [place] [address]- 9737 Mar, [facility] [place] [facility] [address] [id number] [place] [address]- 6687 Mar, [facility] [place] [facility] [address] [id number] [place] [address]- 4028 Mar, [facility] [place] [facility] [address] [id number] [place] [address]- 3970 Mar, [facility] [place] [facility] [address] [id number] [place] [address]- 2845 Feb, [facility] [place] [facility] [address] [id number] [place] [address]- 8392 Feb, [facility] [place] [facility] [address] [id number] [place] [address]- 2264 30 Feb, 2014 [facility] [place] [facility] [address] [id number] [place] [address]- 5103 Feb, [facility] [place] [facility] [address] [id number] [place] [address]- 0503 Feb, [facility] [place] [facility] [address] [id number] [place] [address]- 7291 Feb, [facility] [place] [facility] [address] [id number] [place] [address]- 2967 Feb, [facility] [place] [facility] [address] [id number] [place] [address]- 0326 Feb, [facility] [place] [facility] [address] [id number] [place] [address] Feb, [facility] [place] [facility] [address] [id number] [place] [address]- 7500 Feb, [facility] [place] [facility] [address] [id number] [place] [address]- 1664 Feb, [facility] [place] [facility] [address] [id number] [place] [address]- 0434 Feb, [facility] [place] [facility] [address] [id number] [place] [address]- 3877 Feb, [facility] [place] [facility] [address] [id number] [place] [address]- 6119 Feb, [facility] [place] [facility] [address] [id number] [place] [address]- 5607 Feb, [facility] [place] [facility] [address] [id number] [place] [address]- 3784 10 Jan, 2014 [facility] [place] [facility] [address] [id number] [place] [address]- 6123 08 Jan, 2014 [facility] [place] [facility] [address] [id number] [place] [address]- 1628 08 Jan, 2014 [facility] [place] [facility] [address] [id number] [place] [address]- 0363 08 Jan, 2014 [facility] [place] [facility] [address] [id number] [place] [address]- 5563 08 Jan, 2014 [facility] [place] [facility] [address] [id number] [place] [address]- 0947 Dec, [facility] [place] [facility] [address] [id number] [place] [address]- 1824 Dec, [facility] [place] [facility] [address] [id number] [place] [address]- 8349 Dec, [facility] [place] [facility] [address] [id number] [place] [address]- 6682 Dec, [facility] [place] [facility] [address] [id number] [place] [address]- 2375 Nov, [facility] [place] [facility] [address] [id number] [place] [address]- 9066 Nov, [facility] [place] [facility] [address] [id number] [place] [address]- 9170 Nov, [facility] [place] [facility] [address] [id number] [place] [address]- 7223 Nov, [facility] [place] [facility] [address] [id number] [place] [address]- 0295 Nov, [facility] [place] [facility] [address] [id number] [place] [address]- 0134 Nov, [facility] [place] [facility] [address] [id number] [place] [address]- 6188 Nov, [facility] [place] [facility] [address] [id number] [place] [address]- 9791 Nov, [facility] [place] [facility] [address] [id number] [place] [address]- 1170 Nov, [facility] [place] [facility] [address] [id number] [place] [address]- 9029 Nov, [facility] [place] [facility] [address] [id number] [place] [address]- 8795 Oct, [facility] [place] [facility] [address] [id number] [place] [address]- 9926 Oct, [facility] [place] [facility] [address] [id number] [place] [address]- 7653 September, [facility] [place] [facility] [address] [id number] [place] [address]- 8296 September, [facility] [address] [id number] [place] [address]- 4340 September, [facility] [place] [facility] [address] [id number] [place] [address]- 2536 September, [facility] [place] [facility] [address] [id number] [place] [address]- 1332 16 Aug, 2013 [facility] [place] [facility] [address] [id number] [place] [address]- 1717 Aug, [facility] [place] [facility] [address] [id number] [place] [address]- 8714 Aug, [facility] [place] [facility] [address] [id number] [place] [address]- 1400 Jul, [facility] [place] [facility] [address] [id number] [place] [address]- 8376 Jul, [facility] [place] [facility] [address] [id number] [place] [address]- 9276 Jul, [facility] [place] [facility] [address] [id number] [place] [address]- 3537 Jul, [facility] [place] [facility] [address] [id number] [place] [address]- 5670 May, [facility] [place] [facility] [address] [id number] [place] [address]- 2559 May, [facility] [place] [facility] [address] [id number], [place] [address]- 7976 May, [facility] [place] [facility] [address] [id number] [place] [address]- 5492 Mar, [facility] [place] [facility] [address] [id number] [place] [address]- 8823 15 Mar, 2013 [facility] [place] [facility] [address] [id number], [place] [address]- 0079 13 Mar, 2013 [facility] [place] [facility] [address] [id number], [place] [address]- 8332 Mar, [facility] [place] [facility] [address] [id number] [place] [address]- 1624 Feb, [facility] [place] [facility] [address] [id number] [place] [address]- 1172 Feb, [facility] [place] [facility] [address] [id number] [place] [address]- 7062 Feb, [facility] [place] [facility] [address] [id number] [place] [address]- 9138 Jan, [facility] [place] [facility] [address] [id number] [place] [address]- 6461 Jan, [facility] [place] [facility] [address] [id number] [place] [address]- 0560 Jan, [facility] [place] [facility] [address] [id number] [place] [address]- 6651 Dec, [facility] [place] [facility] [address] [id number] [place] [address]- 2205 Dec, [facility] [place] [facility] [address] [id number] [place] [address]- 6689 Dec, [facility] [place] [facility] [address] [id number] [place] [address]- 1914 Dec, [facility] [place] [facility] [address] [id number] [place] [address]- 1769 Nov, [facility] [place] [facility] [address] [id number] [place] [address]- 1561 Oct, [facility] [place] [facility] [address] [id number] [place] [address]- 2669 Oct, [facility] [place] [facility] [address] [id number] [place] [address]- 7330 September, [facility] [place] [facility] [address] [id number] [place] [address]- 8925 September, [facility] [place] [facility] [address] [id number] [place] [address]- 3375 08 Sep, 2012 [facility] [address] [id number] [place] [address]- 1838 30 Aug, 2012 [facility] [place] [facility] [address] [id number] [place] [address]- 6814 18 Aug, 2012 [facility] [address] [id number] [place] [address]- 5332 Aug, [facility] [address] [id number] [place] [address]- 6179 Aug, [facility] [address] [id number] [place] [address]- 4497 26 Jul, 2012 [facility] [address] [id number] [place] [address]- 4216 Jul, [facility] [address] [id number] [place] [address]- 6172 Jul, [facility] [address] [id number] [place] [address]- 9765 15 Jul, 2012 [facility] [address] [id number] [place] [address]- 5473 14 Jul, 2012 [facility] [address] [id number] [place] [address]- 3675 Jul, [facility] [place] [facility] [address] [id number] [place] [address]- 1419 13 Jul, 2012 [facility] [place] [facility] [address] [id number] [place] [address]- 4005 Jun, [facility] [place] [facility] [address] [id number] [place] [address]- 2853 Jun, [facility] [place] [facility] [address] [id number] [place] [address]- 6418 05 Jun, 2012 [facility] [place] [facility] [address] [id number] [place] [address]- 5021 Jun, [facility] [place] [facility] [address] [id number] [place] [address]- 3531 May, [facility] [place] [facility] [address] [id number] [place] [address]- 0712 May, [facility] [place] [facility] [address] [id number] [place] [address]- 2969 May, [facility] [place] [facility] [address] [id number] [place] [address]- 7653 May, [facility] [place] [facility] [address] [id number] [place] [address]- 9315 May, [facility] [place] [facility] [address] [id number] [place] [address]- 7787 Apr, [facility] [place] [facility] [address] [id number] [place] [address]- 3173 Apr, [facility] [place] [facility] [address] [id number] [place] [address]- 0402 Mar, [facility] [place] [facility] [address] [id number] [place] [address]- 0917 Mar, [facility] [place] [facility] [address] [id number] [place] [address]- 3592 Mar, [facility] [place] [facility] [address] [id number], [place] [address]- 0862 Mar, [facility] [place] [facility] [address] [id number], [place] [address]- 3744 Mar, [facility] [place] [facility] [address] [id number] [place] [address]- 3877 Mar, [facility] [place] [facility] [address] [id number] [place] [address]- 4787 Mar, [facility] [place] [facility] [address] [id number] [place] [address]- 7429 Mar, [facility] [place] [facility] [address] [id number] [place] [address]- 5040 Mar, [facility] [place] [facility] [address] [id number] [place] [address]- 8184 Mar, [facility] [place] [facility] [address] [id number] [place] [address]- 7014 Feb, [facility] [place] [facility] [address] [id number] [place] [address]- 5713 Feb, [facility] [place] [facility] [address] [id number] [place] [address]- 7921 Feb, [facility] [place] [facility] [address] [id number] [place] [address]- 7522 Feb, [facility] [place] [facility] [address] [id number] [place] [address]- 3845 Feb, [facility] [place] [facility] [address] [id number] [place] [address]- 8951 Feb, [facility] [place] [facility] [address] [id number] [place] [address]- 4082 Feb, [facility] [place] [facility] [address] [id number] [place] [address]- 0840 Jan, [facility] [place] [facility] [address] [id number] [place] [address]- 7045 Jan, [facility] [place] [facility] [address] [id number] [place] [address]- 3064 Dec, [facility] [place] [facility] [address] [id number] [place] [address]- 2116 Dec, [facility] [place] [facility] [address] [id number] [place] [address]- 0846 Dec, [facility] [place] [facility] [address] [id number] [place] [address]- 8456 Dec, [facility] [place] [facility] [address] [id number] [place] [address]- 1444 Dec, [facility] [address] [id number] [place] [address]- 0321 Dec, [facility] [place] [facility] [address] [id number] [place] [address]- 5936 Nov, [facility] [place] [facility] [address] [id number] [place] [address]- 7576 Nov, [facility] [place] [facility] [address] [id number] [place] [address]- 8436 Nov, [facility] [place] [facility] [address] [id number] [place] [address]- 6426 Nov, [facility] [place] [facility] [address] [id number] [place] [address]- 6676 September, [facility] [place] [facility] [address] [id number] [place] [address]- 3836 September, [facility] [place] [facility] [address] [id number] [place] [address]- 0975 September, [facility] [place] [facility] [address] [id number] [place] [address]- 3417 Jul, [facility] [place] [facility] [address] [id number] [place] [address]- 3746 29 Jun, 2011 [facility] [place] [facility] [address] [id number] [place] [address]- 0136 Jun, [facility] [place] [facility] [address] [id number] [place] [address]- 4126 Jun, [facility] [place] [facility] [address] [id number] [place] [address]- 2146 Apr, [facility] [place] [facility] [address] [id number] [place] [address]- 6096 Mar, [facility] [place] [facility] [address] [id number] [place] [address]- 0476 Mar, [facility] [place] [facility] [address] [id number] [place] [address]- 3882 31 Feb, 2011 [facility] [address] [facility] [id number], [place] [address]- 8775 31 Feb, 2011 [facility] [address] [facility] [id number], [place] [address]- 2117 11 Feb, 2011 [facility] [address] [facility] [id number], [place] [address]- 5948 Jul, [facility] [address] [facility] [id number], [place] [address]- 5617 20 Feb, 2008 IMMUNIZATIONS No Known Immunizations SOCIAL HISTORY Never Assessed REASON FOR VISIT Refill request PLAN OF CARE VITAL SIGNS MEDICATIONS Medication Instructions Dosage Frequency Start Date End Date Duration Status Actos 30 MG TAKE ONE TABLET BY MOUTH ONCE DAILY 30 Active Furosemide 20 MG TAKE 1 TABLET BY MOUTH ONCE DAILY 30 Active Proventil HFA 108 (90 Base) MCG/ACT INHALE TWO PUFFS BY MOUTH FOUR TIMES DAILY NEEDED 25 Active RESULTS No Results PROCEDURES No Known procedures INSTRUCTIONS MEDICATIONS ADMINISTERED No Known Medications MEDICAL (GENERAL) HISTORY Type Description Date Medical History type II diabetes-dx'd 12/2010 Medical History dysfunctional uterine bleeding--endometrial bx 12/2010 Medical History asthma Medical History hypertension Medical History obesity Medical History anxiety Medical History autoimmune disease Surgical History x1 Hospitalization History child Hospitalization History Asthma
--- OUTSIDE RECORDS SUMMARY | 2018-02-02 23:35 | XMS REPORT ---
Author Author MACY TAMAYO Organization [facility] Address [address] [place] [address] Care Team Providers Care Respiratory Support Technician Name Role Phone MACY TAMAYO Unavailable PROBLEMS Type Condition ICD9-CM Code CNV22-UE Code Onset Dates Condition Status SNOMED Code Problem Lumbago with sciatica, left side M54.42 Active 575108731 Problem Tachycardia with heart rate 121-140 beats per minute R00.0 Active 1528403 Problem Controlled type 2 diabetes mellitus without complication, without long -term current use of insulin E11.9 Active 895091903 Problem Gait disturbance R26.9 Active 31237565 Problem Lumbago with sciatica, right side M54.41 Active 497701929 Problem Enlarged thyroid gland E04.9 Active 6660505 Problem Body mass index (BMI) of 45.0-49.9 in adult Z68.42 Active 003106299 Problem Morbid (severe) obesity due to excess calories E66.01 Active 030897678 Problem Dermatomyositis M33.90 Active 031721597 Problem Mood disorder F39 Active 92484405 Problem Diabetes type 2, controlled E11.9 Active 74218196 Problem Menopause Z78.0 Active 715488933 Problem Allergic rhinitis due to pollen J30.1 Active 95449753 Problem Other chronic pain G89.29 Active 46473107 Problem Arthritis M19.90 Active 7167767 Problem Osteoarthritis of right knee, unspecified osteoarthritis type M17.9 Active 496612060 Problem Plantar warts B07.0 Active 19254256 Problem Anxiety F41.9 Active 26601725 Problem Plantar wart of both feet B07.0 Active [id number] ALLERGIES Substance Reaction Event Type Date Status Fluarix Quadrivalent vomiting Drug Allergy Oct, Active Zoloft makes very angry Drug Allergy Oct, Active Fluarix vomiting Drug Allergy Oct, Active Aspirin rash Drug Allergy Oct, Active Latex, Natural Rubber rash Non Drug Allergy Oct, Active ENCOUNTERS Encounter Location Date Diagnosis [facility] [id number] [place] [address] 59178- 5678 28 Jan, 2018 [facility] [id number] [place] [address] 09603- 5774 27 Jan, 2018 [facility] [id number] [place] [address] 94293- 4092 14 Jan, 2018 [facility] [address] 18031- 3470 05 Jan, 2018 [facility] [id number] [place] [address] 81782- 8415 31 Dec, 2017 [facility] [id number] [place] [address] 99116- 1116 Dec, Acute right ankle pain M25.571 [facility] [id number] [place] [address] 46102- 2669 Dec, Other chronic pain G89.29 ; Diabetes type 2, controlled E11.9 ; Gait disturbance R26.9 ; Weakness R53.1 and Muscle spasm M62.838 [facility] [id number] [place] [address] 45235- 5000 Dec, Acute non-recurrent maxillary sinusitis J01.00 [facility] [id number] [place] [address] 23160- 0470 Dec, [facility] [id number] [place] [address] 85907- 8700 Dec, [facility] [id number] [place] [address] 52236- 2194 Dec, Acute non-recurrent maxillary sinusitis J01.00 [facility] [id number] [place] [address] 90603- 9222 Dec, Lumbago with sciatica, right side M54.41 and Lupus erythematosus L93.0 [facility] [id number] [place] [address] 28758- 4914 Dec, Mood disorder F39 [facility] [id number] [place] [address] 34857- 0501 Dec, Mood disorder F39 [facility] [id number] [place] [address] 84204- 3142 Dec, [facility] [id number] [place] [address] 13628- 9313 Dec, Acute right ankle pain M25.571 [facility] [id number] [place] [address] 63832- 3741 Nov, Lumbar radiculopathy M54.16 [facility] [id number] [place] [address] 36135- 4332 Nov, [facility] [id number] [place] [address] 55526- 6531 Nov, Mood disorder F39 [facility] [id number] [place] [address] 46001- 5620 Nov, Lumbago with sciatica, right side M54.41 and Other chronic pain G89.29 [facility] [id number] [place] [address] 08750- 2730 Nov, Acute right ankle pain M25.571 [facility] [id number] [place] [address] 13966- 1638 Nov, [facility] [id number] [place] [address] 41259- 4513 Oct, [facility] [id number] [place] [address] 52589- 4262 Oct, Plantar wart of both feet B07.0 [facility] [id number] [place] [address] 82629- 7063 Oct, [facility] [id number] [place] [address] 68100- 0123 Oct, Acute right ankle pain M25.571 and Plantar wart of both feet B07.0 [facility] [id number] [place] [address] 99605- 2446 September, Other chronic pain G89.29 [facility] [id number] [place] [address] 25475- 8583 September, Other chronic pain G89.29 [facility] [address] 05954- 8746 September, Other chronic pain G89.29 [facility] [address] 39691- 3852 Aug, Mood disorder F39 [facility] [address] 13769- 1845 Aug, Other chronic pain G89.29 ; Controlled type 2 diabetes mellitus without complication, without long-term current use of insulin E11.9 ; Low back pain M54.5 and Tinea corporis B35.4 [facility] [id number] [place] [address] 16700- 1909 Aug, Mood disorder F39 and Anxiety F41.9 [facility] [id number] [place] [address] 72180- 5938 Aug, Mood disorder F39 and Anxiety F41.9 [facility] [id number] [place] [address] 40940- 3788 Jul, [facility] [id number] [place] [address] 22694 -9223 Jul, Scabies B86 and BMI 45.0-49.9, adult Z68.42 [place] [address] 11104- 7274 Jul, [facility] [address] 56246- 5678 Jul, Mood disorder F39 and Anxiety F41.9 [place] [address] [place] [address]- 4791 Jul, [facility] [id number] [place] [address] 14150 -9747 27 Jun, 2017 Bronchitis J40 ; Dark urine R82.99 and BMI 45.0-49.9, adult Z68.42 [place] [address] 20069- 5877 14 Jun, 2017 Acute pain of right shoulder M25.511 and Acute pain of right knee M25.561 [facility] [place] [address] 24789- 4394 May, BMI 40.0-44.9, adult Z68.41 ; Controlled type 2 diabetes mellitus without complication, without long-term current use of insulin E11.9 ; Muscle cramping R25.2 ; Hot flashes R23.2 ; Mood disorder F39 ; Anxiety F41.9 and Morbid (severe) obesity due to excess calories E66.01 [facility] [place] [address] 32866- 3609 May, BMI 40.0-44.9, adult Z68.41 ; Controlled type 2 diabetes mellitus without complication, without long-term current use of insulin E11.9 ; Muscle cramping R25.2 and Hot flashes R23.2 [facility] [id number] [place] [address] 68163- 5190 May, Tachycardia with heart rate 121-140 beats per minute R00.0 ; Morbid (severe) obesity due to excess calories E66.01 ; Diabetes type 2, controlled E11.9 and Enlarged thyroid gland E04.9 [facility] [address] 54596- 6259 May, Encounter for well woman exam with [...] Dysuria R30.0 and Screening breast examination Z12.31 [facility] [id number] [place] [address] 99325- 0164 Apr, Mood disorder F39 ; Other chronic pain G89.29 and Anxiety F41.9 [facility] [address] 74365- 1168 Apr, Lumbago with sciatica, left side M54.42 and Other chronic pain G89.29 [facility] [place] [address] 07877- 7257 Apr, Lupus erythematosus L93.0 [facility] [place] [address] 44308- 4435 Mar, Plantar wart of both feet B07.0 [facility] [place] [address] 47328- 6765 Mar, Lupus erythematosus L93.0 and Sinus drainage J34.89 [facility] [address] 24139- 7867 Mar, Mood disorder F39 ; Other chronic pain G89.29 and Anxiety F41.9 [facility] [id number] [place] [address] 39306- 7775 Mar, Mood disorder F39 ; Arthritis M19.90 and Plantar warts B07.0 [facility] [id number] [place] [address] 05627- 8601 Feb, Lupus erythematosus L93.0 [facility] [address] 97571- 5091 Feb, Other chronic pain G89.29 [facility] [id number] [place] [address] 07961- 7299 Feb, Mood disorder F39 and Anxiety F41.9 [facility] [place] [id number] [place] [address] 31331- 9166 Jan, [facility] [id number] [place] [address] 01648- 2007 Jan, Mood disorder F39 [facility] [id number] [place] [address] 13498- 5481 Dec, Nail, ingrown L60.0 [facility] [id number] [place] [address] 16683- 9917 Dec, Nail, ingrown L60.0 [facility] [id number] [place] [address] 57165- 3756 Nov, Mood disorder F39 and Anxiety F41.9 [facility] [id number] [place] [address] 71989- 2764 Nov, Sinus drainage J34.89 ; Hot flashes R23.2 ; Anxiety F41.9 and Diabetes type 2, controlled E11.9 [facility] [id number] [place] [address] 53190- 9211 Nov, Nail, ingrown L60.0 [facility] [id number] [place] [address] 54075- 9072 Oct, Anxiety F41.9 and Mood disorder F39 [facility] [id number] [place] [address] 23402- 7191 Oct, Nail, ingrown L60.0 and Anxiety F41.9 [facility] [id number] [place] [address] 53379- 0407 Oct, Lupus erythematosus L93.0 [facility] [id number] [place] [address] 61984- 6402 September, [facility] [id number] [place] [address] 69988- 2525 September, [facility] [id number] [place] [address] 72280- 9613 September, Lupus erythematosus L93.0 [facility] [address] [address]- 2686 Aug, [facility] [id number] [place] [address] 43060 2546 Aug, Mood disorder F39 and Anxiety F41.9 [facility] [id number] [place] [address] 80395- 1523 Aug, Lupus erythematosus L93.0 ; Diabetes type 2, controlled E11.9 and Localized edema R60.0 [facility] [id number] [place] [address] 46465- 2416 Aug, [facility] [id number] [place] [address] 53508- 1841 Jul, Anxiety F41.9 and Mood disorder F39 [facility] [id number] [place] [address] 28913- 4382 Jul, Diabetes type 2, controlled E11.9 [facility] [id number] [place] [address] 91197- 2665 Jun, Anxiety F41.9 [facility] [id number] [place] [address] 47029- 5719 May, [facility] [id number] [place] [address] 53022- 4102 May, [facility] [id number] [place] [address] 93778- 0243 May, Nausea R11.0 ; Other chronic pain G89.29 and Pain in right knee M25.561 [facility] [id number] [place] [address] 11349- 1876 May, [facility] [id number] [place] [address] 16698- 1686 Apr, Tear of medial meniscus of right knee, current, unspecified tear type, subsequent encounter S83.241D and Tear of lateral meniscus of right knee, current, unspecified tear type, subsequent encounter S83.281D [facility] [id number] [place] [address] 09982- 5676 09 Apr, 2016 Anxiety F41.9 and Mood disorder F39 [facility] [id number] [place] [address] 36237- 6305 Apr, Anxiety F41.9 [facility] [address] 38989- 9611 Apr, [facility] [id number] [place] [address] 19397- 8948 Mar, [facility] [address] 32550- 4243 Mar, Lupus erythematosus L93.0 and Diabetes type 2, controlled E11.9 [place] [address] 05393- 9429 Mar, Mood disorder F39 [facility] [address] 49102- 2329 Mar, Tear of lateral meniscus of right knee, current, unspecified tear type, initial encounter S83.281A and Osteoarthritis of right knee, unspecified osteoarthritis type M17.9 [facility] [id number] [place] [address] 31813- 5457 Mar, [facility] [id number] [place] [address] 91563- 5161 Feb, Mood disorder F39 [facility] [id number] [place] [address] 62051- 3658 Feb, Rash R21 [facility] [address] 48140- 0744 Feb, [facility] [id number] [place] [address] 29587- 6025 Jan, Other chronic pain G89.29 and Muscle spasm M62.838 [facility] [id number] [place] [address] 14306- 0583 Jan, Mood disorder F39 [facility] [id number] [place] [address] 62853- 4622 Jan, Pain in right knee M25.561 ; Other chronic pain G89.29 and Muscle spasm M62.838 [facility] [id number] [place] [address] 41789- 5836 Dec, [facility] [id number] [place] [address] 27303- 1201 Dec, [facility] [id number] [place] [address] 90618- 0452 Nov, [facility] [id number] [place] [address] 59529- 4440 Nov, Mood disorder F39 [facility] [id number] [place] [address] 85316- 0314 Nov, Diabetes type 2, controlled E11.9 ; Bronchitis J40 ; Edema, unspecified type R60.9 ; Weight gain R63.5 and Right knee pain, unspecified chronicity M25.561 [facility] [id number] [place] [address] 73471- 0405 Oct, Mood disorder F39 [facility] [id number] [place] [address] 48510- 4565 Oct, Lupus erythematosus L93.0 and Bilateral edema of lower extremity R60.0 [facility] [id number] [place] [address] 29076- 9677 Oct, Mood disorder F39 and Anxiety F41.9 [facility] [id number] [place] [address] 60182- 2874 September, Mood disorder F39 ; Anxiety F41.9 and Anger reaction R45.4 [facility] [id number] [place] [address] 07253- 0216 September, Diabetes type 2, controlled E11.9 ; Edema, unspecified type R60.9 and Fatigue, unspecified type R53.83 [facility] [id number] [place] [address] 55635- 0196 Aug, Mood disorder F39 and Generalized anxiety disorder F41.1 [facility] [id number] [place] [address] 91995- 5865 Aug, Diabetes type 2, controlled E11.9 ; Sinusitis J32.9 and Mood disorder F39 [facility] [id number] [place] [address] 40285- 4692 Aug, Lupus erythematosus L93.0 [facility] [id number] [place] [address] 96592- 9892 Aug, [facility] [address] 72327- 7408 Aug, [facility] [address] 01491- 4298 Jul, Diabetes type 2, controlled E11.9 [facility] [id number] [place] [address] 22590- 0393 Jul, Mood disorder F39 and Depression F32.9 [facility] [id number] [place] [address] 21309- 4546 Jul, Lupus erythematosus L93.0 and Diabetes type 2, controlled E11.9 [facility] [id number] [place] [address] 00718- 7750 Jul, Mood disorder F39 and Anxiety F41.9 [facility] [id number] [place] [address] 35353- 8249 Jul, [facility] [id number] [place] [address] 59496- 8040 Jul, [facility] [id number] [place] [address] 18292- 7191 Jun, Mood disorder F39 and Anxiety F41.9 [facility] [address] [address]- 2146 Jun, Mood disorder F39 [facility] [id number] [place] [address] 22147- 8692 18 Jun, 2015 [facility] [id number] [place] [address] 93976- 7936 Jun, [facility] [id number] [place] [address] 23886- 5799 Jun, Mood disorder F39 [facility] [id number] [place] [address] 36832- 4643 Jun, [facility] [id number] [place] [address] 01333- 5263 May, [facility] [id number] [place] [address] 16179- 7750 May, [facility] [id number] [place] [address] 79866- 9202 May, [facility] [id number] [place] [address] 10385- 4661 May, [facility] [id number] [place] [address] 89811- 0446 May, Anxiety F41.9 ; Dermatomyositis M33.90 and Diabetes type 2, controlled E11.9 [facility] [id number] [place] [address] 93016 -5165 May, Sinusitis J32.9 and Cough R05 [facility] [id number] [place] [address] 55507- 0743 May, Mood disorder F39 [facility] [id number] [place] [address] 55846- 4737 May, Adjustment disorder with mixed anxiety and depressed mood F43.23 [facility] [id number] [place] [address] 84590- 3212 Apr, [facility] [address] [address]- 9255 Apr, [facility] [id number] [place] [address] 261574- 7523 Apr, Generalized anxiety disorder F41.1 and Mood disorder F39 [facility] [id number] [place] [address] 95167- 9968 Mar, [facility] [id number] [place] [address] 95740- 3588 Mar, [facility] [id number] [place] [address] 44653- 0339 Mar, [facility] [id number] [place] [address] 69048- 2663 Mar, Mood disorder F39 [facility] [id number] [place] [address] 51536- 1851 Feb, [facility] [id number] [place] [address] 15350- 3591 Feb, Diabetes E11.9 and Bronchitis J40 [facility] [id number] [place] [address] 68326- 9425 Feb, [facility] [id number] [place] [address] 84395- 7507 Feb, [facility] [id number] [place] [address] 68309- 9679 Feb, Major depression, recurrent, full remission F33.42 and KELLY ( generalized anxiety disorder) F41.1 [facility] [id number] [place] [address] 35110- 7406 Feb, [facility] [id number] [place] [address] 35993- 7508 Feb, Single major depressive episode, in partial or unspecified remission F32.5 [facility] [id number] [address] Jan, Fatigue 780.79 [facility] [id number] [place] [address] 06738- 6998 Jan, [facility] [id number] [place] [address] [phone]- 0885 Jan, Diabetes with other specified manifestations, type II or unspecified type, not stated as uncontrolled 250.80 [place] [id number] [place] [address] 76252- 0380 Jan, [place] [id number] [place] [address] 03724- 8549 Dec, Hot flashes 627.2 ; Memory loss 780.93 and Joint pain 719.40 [address] [id number] [place] [address] 27843- 6078 Dec, Major depression, recurrent 296.30 ; Generalized anxiety disorder 300.02 ; Adjustment disorder with depressed mood 309.0 and No condition on [place] II V71.09 [place] [id number] [place] [address] 62361- 8168 Dec, [place] [id number] [place] [address] 95636- 9343 Nov, Cognitive and neurobehavioral dysfunction 294.9 ; Major depressive disorder, recurrent episode, moderate degree 296.32 and Anxiety state , unspecified 300.00 [place] [id number] [place] [address] 93838- 9955 Nov, [facility] [id number] [place] [address] 68390- 1165 Nov, Bronchitis 490 and Diabetes with other specified manifestations, type II or unspecified type, not stated as uncontrolled 250.80 [place] [id number] [place] [address] 17500- 8406 Nov, Major depressive disorder, recurrent episode, moderate 296.32 and Anxiety disorder, unspecified 300.00 [place] [id number] [address] Nov, Anxiety, generalized 300.02 ; Intermittent explosive disorder 312.34 ; No condition on [place] II V71.09 and No condition on axis III V71.09 [id number] [place] [address] 16898- 0331 Oct, Diabetes with other specified manifestations, type II or unspecified type, not stated as uncontrolled 250.80 ; Urinary tract infection, site not specified 599.0 and Bronchitis [id number] [place] [address] 51360- 0438 Oct, Intermittent explosive disorder 312.34 ; Bipolar 1 disorder , depressed, moderate 296.52 ; Major depression, chronic 296.20 ; No condition on [place] II V71.09 and No condition on axis III V71.09 [place] [id number] [place] [address] 62516- 1493 Oct, Major depressive disorder, recurrent episode, moderate 296.32 ; Anxiety state 300.00 ; Cognitive decline 294.9 and No condition on [place] II V71.09 [id number] [place] [address] 52018- 5419 Oct, [id number] [place] [address] 83614- 4667 Oct, Major depressive disorder, recurrent episode, moderate 296.32 ; Anxiety disorder, unspecified 300.00 and Persistent disorder of initiating or maintaining sleep 307.42 [id number] [place] [address] 23583- 8918 September, Diabetes with other specified manifestations, type II or unspecified type, not stated as uncontrolled 250.80 ; Memory loss 780.93 and Cognitive complaints 799.59 [id number] [place] [address] 48502- 6627 September, No condition on [place] II V71.09 ; Major depression, recurrent 296.30 and Persistent mood [affective] disorder, unspecified 296.90 [place] [id number] [address] 28 Aug, 2014 [facility] [place] [facility] [address] [id number] [place] [address]- 1762 14 Aug, 2014 [facility] [place] [facility] [address] [id number] [place] [address]- 4763 13 Aug, 2014 [facility] [place] [facility] [address] [id number] [place] [address]- 4237 Jul, [facility] [place] [facility] [address] [id number] [place] [address]- 0687 Jul, [facility] [place] [facility] [address] [id number] [place] [address]- 1262 Jul, [facility] [place] [facility] [address] [facility] [id number] [place] [address]- 5214 Jul, [facility] [place] [facility] [address] [facility] [id number] [place] [address]- 0578 Jul, [facility] [place] [facility] [address] [facility] [id number] [place] [address]- 0618 18 Jun, 2014 [facility] [place] [facility] [address] [place] [id number] [address]- 4803 18 Jun, 2014 [facility] [place] [facility] [address] [facility] [id number] [place] [address]- 8328 13 Jun, 2014 [facility] [place] [facility] [address] [facility] [id number] [place] [address]- 4421 13 Jun, 2014 [facility] [place] [facility] [address] [facility] [id number] [place] [address]- 7863 12 Jun, 2014 [facility] [place] [facility] [address] [facility] [id number] [place] [address]- 1212 12 Jun, 2014 [facility] [place] [facility] [address] [facility] [id number] [place] [address] 05 Jun, 2014 [facility] [place] [facility] [address] [facility] [id number] [place] [address]- 1683 Jun, 2014 [facility] [place] [facility] [address] [facility] [id number] [place] [address]- 6878 Jun, 2014 [facility] [place] [facility] [address] [id number] [place] [address] Jun, 2014 [facility] [place] [facility] [address] [facility] [id number] [place] [address]- 0406 Jun, 2014 [facility] [place] [facility] [address] [id number] [place] [address]- 0326 Jun, 2014 [facility] [place] [facility] [address] [id number] [place] [address]- 5900 Jun, 2014 [facility] [place] [facility] [address] [facility] [id number] [place] [address]- 9335 May, [facility] [place] [facility] [address] [facility] [id number] [place] [address]- 6485 May, [facility] [place] [facility] [address] [facility] [id number] [place] [address]- 9044 Apr, [facility] [place] [facility] [address] [facility] [id number] [place] [address]- 8550 Apr, [facility] [place] [facility] [address] [facility] [id number] [place] [address]- 0772 Apr, [facility] [place] [facility] [address] [facility] [id number] [place] [address]- 5434 Apr, [facility] [place] [facility] [address] [facility] [id number] [place] [address]- 5663 Apr, [facility] [place] [facility] [address] [facility] [id number] [place] [address]- 3656 Apr, [facility] [place] [facility] [address] [facility] [id number] [place] [address]- 2597 Apr, [facility] [place] [facility] [address] [facility] [id number] [place] [address]- 7575 Apr, [facility] [place] [facility] [address] [id number] [place] [address]- 3377 15 Apr, 2014 [facility] [place] [facility] [address] [id number] [place] [address]- 1739 Apr, [facility] [place] [facility] [address] [id number] [place] [address]- 8656 Apr, [facility] [place] [facility] [address] [id number] [place] [address]- 3026 Apr, [facility] [place] [facility] [address] [id number] [place] [address]- 8058 Apr, [facility] [place] [facility] [address] [id number] [place] [address]- 5450 Apr, [facility] [place] [facility] [address] [id number] [place] [address]- 6247 Apr, [facility] [place] [facility] [address] [id number] [place] [address]- 2674 Apr, [facility] [place] [facility] [address] [id number] [place] [address]- 6515 Apr, [facility] [place] [facility] [address] [id number] [place] [address]- 5301 Apr, [facility] [place] [facility] [address] [id number] [place] [address]- 0964 Apr, [facility] [place] [facility] [address] [id number] [place] [address]- 6728 Apr, [facility] [place] [facility] [address] [id number] [place] [address]- 1376 Mar, [facility] [place] [facility] [address] [id number] [place] [address]- 9718 Mar, [facility] [place] [facility] [address] [id number] [place] [address]- 0709 Mar, [facility] [place] [facility] [address] [id number] [place] [address]- 3045 Mar, [facility] [place] [facility] [address] [id number] [place] [address]- 0982 Mar, [facility] [place] [facility] [address] [id number] [place] [address]- 9955 Mar, [facility] [place] [facility] [address] [id number] [place] [address]- 7388 Mar, [facility] [place] [facility] [address] [id number] [place] [address]- 4382 Mar, [facility] [place] [facility] [address] [id number] [place] [address]- 8099 Mar, [facility] [place] [facility] [address] [id number] [place] [address]- 4428 Mar, [facility] [place] [facility] [address] [id number] [place] [address]- 8659 Mar, [facility] [place] [facility] [address] [id number] [place] [address]- 7575 Mar, [facility] [place] [facility] [address] [id number] [place] [address]- 3714 Mar, [facility] [place] [facility] [address] [id number] [address]- 4641 Feb, [facility] [place] [facility] [address] [id number] [place] [address]- 3641 Feb, [facility] [place] [facility] [address] [id number] [place] [address]- 2252 30 Feb, 2014 [facility] [place] [facility] [address] [id number] [place] [address]- 9084 Feb, [facility] [place] [facility] [address] [id number] [place] [address]- 2107 Feb, [facility] [place] [facility] [address] [id number] [place] [address]- 3517 Feb, [facility] [place] [facility] [address] [id number] [place] [address]- 6123 Feb, [facility] [place] [facility] [address] [id number] [place] [address]- 5709 Feb, [facility] [place] [facility] [address] [id number] [place] [address]- 2036 Feb, [facility] [place] [facility] [address] [id number] [place] [address]- 2471 Feb, [facility] [place] [facility] [address] [id number] [place] [address]- 5118 13 Feb, 2014 [facility] [place] [facility] [address] [id number] [place] [address]- 5289 Feb, [facility] [place] [facility] [address] [id number] [place] [address]- 4182 10 Feb, 2014 [facility] [place] [facility] [address] [id number] [place] [address]- 5339 Feb, [facility] [place] [facility] [address] [id number] [place] [address]- 8801 07 Feb, 2014 [facility] [place] [facility] [address] [id number] [place] [address]- 6382 10 Jan, 2014 [facility] [place] [facility] [address] [id number] [place] [address]- 6597 08 Jan, 2014 [facility] [place] [facility] [address] [id number] [place] [address]- 4341 08 Jan, 2013 [facility] [place] [facility] [address] [id number] [place] [address]- 5534 08 Jan, 2013 [facility] [place] [facility] [address] [id number] [place] [address]- 5108 08 Jan, 2014 [facility] [place] [facility] [address] [id number] [place] [address]- 8951 Dec, [facility] [place] [facility] [address] [id number] [place] [address]- 9454 Dec, [facility] [place] [facility] [address] [id number] [place] [address]- 0513 Dec, [facility] [place] [facility] [address] [id number] [place] [address]- 6931 Dec, [facility] [place] [facility] [address] [id number] [place] [address]- 4405 Nov, [facility] [place] [facility] [address] [id number] [place] [address]- 8818 Nov, [facility] [place] [facility] [address] [id number] [place] [address]- 9362 Nov, [facility] [place] [facility] [address] [id number] [place] [address]- 0432 Nov, [facility] [place] [facility] [address] [id number] [place] [address]- 7408 Nov, [facility] [place] [facility] [address] [id number] [place] [address]- 6482 Nov, [facility] [place] [facility] [address] [id number] [place] [address]- 5207 Nov, [facility] [place] [facility] [address] [id number] [place] [address]- 5084 Nov, [facility] [place] [facility] [address] [id number] [place] [address]- 2505 Nov, [facility] [place] [facility] [address] [id number] [place] [address]- 3534 Nov, [facility] [place] [facility] [address] [id number] [place] [address]- 1209 Oct, [facility] [place] [facility] [address] [id number] [place] [address]- 2581 Oct, [facility] [place] [facility] [address] [id number] [place] [address]- 9030 September, [facility] [place] [facility] [address] [id number] [place] [address]- 4636 September, [facility] [place] [facility] [address] [id number] [place] [address]- 7543 September, [facility] [place] [facility] [address] [id number] [place] [address]- 9746 September, [facility] [place] [facility] [address] [id number] [place] [address]- 8524 16 Aug, 2013 [facility] [place] [facility] [address] [id number] [place] [address]- 1601 Aug, [facility] [place] [facility] [address] [id number] [place] [address]- 6559 Aug, [facility] [place] [facility] [address] [id number] [place] [address]- 5966 Jul, [facility] [place] [facility] [address] [id number] [place] [address]- 5656 Jul, [facility] [place] [facility] [address] [id number] [place] [address]- 1784 Jul, [facility] [place] [facility] [address] [id number] [place] [address]- 8404 Jul, [facility] [place] [facility] [address] [id number] [place] [address]- 9425 May, [facility] [place] [facility] [address] [id number] [place] [address]- 7694 May, [facility] [place] [facility] [address] [id number] [place] [address]- 2758 May, [facility] [place] [facility] [address] [id number] [place] [address]- 5503 Mar, [facility] [place] [facility] [address] [id number] [place] [address]- 3078 15 Mar, 2013 [facility] [place] [facility] [address] [id number] [place] [address]- 9795 13 Mar, 2013 [facility] [place] [facility] [address] [id number] [place] [address]- 2546 Mar, [facility] [address] [id number] [place] [address]- 5469 Feb, [facility] [place] [facility] [address] [id number] [place] [address]- 2546 Feb, [facility] [address] [id number] [place] [address]- 6633 Feb, [facility] [address] [id number] [place] [address]- 5279 Jan, [facility] [address] [id number] [place] [address]- 0612 Jan, [facility] [address] [id number] [place] [address]- 7067 Jan, [facility] [address] [id number] [place] [address]- 0862 Dec, [facility] [address] [id number] [place] [address]- 0676 Dec, [facility] [place] [facility] [address] [id number] [place] [address]- 5263 Dec, [facility] [address] [id number] [place] [address]- 1556 Dec, [facility] [place] [facility] [address] [id number] [place] [address]- 5050 Nov, [facility] [address] [id number] [place] [address]- 1086 Oct, [facility] [place] [facility] [address] [id number] [place] [address]- 5129 Oct, [facility] [place] [facility] [address] [id number] [place] [address]- 5606 September, [facility] [place] [facility] [address] [id number] [place] [address]- 7426 September, [facility] [address] [id number] [place] [address]- 4259 September, [facility] [address] [id number] [place] [address]- 5932 30 Aug, 2012 [facility] [place] [facility] [address] [id number] [place] [address]- 9224 Aug, [facility] [place] [facility] [address] [id number] [place] [address]- 5412 Aug, [facility] [address] [id number] [place] [address]- 2150 Aug, [facility] [place] [facility] [address] [id number] [place] [address]- 4929 26 Jul, 2012 [facility] [address] [id number] [place] [address]- 6622 Jul, [facility] [address] [id number] [place] [address]- 7869 Jul, [facility] [place] [facility] [address] [id number] [place] [address]- 5895 15 Jul, 2012 [facility] [place] [facility] [address] [id number] [place] [address]- 3114 14 Jul, 2012 [facility] [place] [facility] [address] [id number] [place] [address]- 7267 Jul, [facility] [place] [facility] [address] [id number] [place] [address]- 1910 Jul, [facility] [place] [facility] [address] [id number] [place] [address]- 2870 Jun, [facility] [place] [facility] [address] [id number] [place] [address]- 2026 Jun, [facility] [place] [facility] [address] [id number] [place] [address]- 3297 Jun, [facility] [place] [facility] [address] [id number] [place] [address]- 1816 Jun, [facility] [address] [id number] [place] [address]- 2196 May, [facility] [place] [facility] [address] [id number] [place] [address]- 3607 May, [facility] [place] [facility] [address] [id number] [place] [address]- 4678 May, [facility] [place] [facility] [address] [id number] [place] [address]- 6510 May, [facility] [address] [id number] [place] [address]- 0928 May, [facility] [place] [facility] [address] [id number] [place] [address]- 9622 Apr, [facility] [address] [id number] [place] [address]- 5903 Apr, [facility] [place] [facility] [address] [id number] [place] [address]- 3960 Mar, [facility] [place] [facility] [address] [id number] [place] [address]- 3864 Mar, [facility] [place] [facility] [address] [id number] [place] [address]- 9818 Mar, [facility] [place] [facility] [address] [id number] [place] [address]- 7152 Mar, [facility] [place] [facility] [address] [id number] [place] [address]- 4305 Mar, [facility] [place] [facility] [address] [id number] [place] [address]- 0352 Mar, [facility] [place] [facility] [address] [id number] [place] [address]- 4120 Mar, [facility] [place] [facility] [address] [id number] [place] [address]- 2559 Mar, [facility] [place] [facility] [address] [id number] [place] [address]- 0027 Mar, [facility] [place] [facility] [address] [id number] [place] [address]- 0842 Mar, [facility] [place] [facility] [address] [id number] [place] [address]- 0787 Feb, [facility] [place] [facility] [address] [id number] [place] [address]- 3581 Feb, [facility] [place] [facility] [address] [id number] [place] [address]- 5920 Feb, [facility] [place] [facility] [address] [id number] [place] [address]- 3139 Feb, [facility] [place] [facility] [address] [id number] [place] [address]- 1945 Feb, [facility] [place] [facility] [address] [id number] [place] [address]- 7503 Feb, [facility] [place] [facility] [address] [id number] [place] [address]- 8207 Feb, [facility] [place] [facility] [address] [id number] [place] [address]- 8563 Jan, [facility] [place] [facility] [address] [id number] [place] [address]- 4789 Jan, [facility] [place] [facility] [address] [id number] [place] [address]- 4750 Dec, [facility] [place] [facility] [address] [id number] [place] [address]- 2212 Dec, [facility] [place] [facility] [address] [id number] [place] [address]- 5691 Dec, [facility] [place] [facility] [address] [id number] [place] [address]- 3787 Dec, [facility] [place] [facility] [address] [id number] [place] [address] 16 Dec, 2011 [facility] [address] [id number] [place] [address] Dec, [facility] [place] [facility] [address] [id number] [place] [address] Nov, [facility] [place] [facility] [address] [id number] [place] [address] Nov, [facility] [place] [facility] [address] [id number] [place] [address] Nov, [facility] [place] [facility] [address] [id number] [place] [address] Nov, [facility] [place] [facility] [address] [id number] [place] [address] September, [facility] [place] [facility] [address] [id number] [place] [address] September, [facility] [place] [facility] [address] [id number] [place] [address] September, [facility] [place] [facility] [address] [id number] [place] [address] Jul, [facility] [place] [facility] [address] [id number] [place] [address] 29 Jun, 2011 [facility] [place] [facility] [address] [id number] [place] [address] Jun, [facility] [place] [facility] [address] [id number] [place] [address] Jun, [facility] [place] [facility] [address] [id number] [place] [address] Apr, [facility] [place] [facility] [address] [id number] [place] [address] 28 Mar, 2011 [facility] [place] [facility] [address] [id number] [place] [address] 15 Mar, 2011 [facility] [place] [facility] [address] [id number] [place] [id number] Feb, [facility] [address] [facility] [id number] [place] [address] Feb, [facility] [address] [facility] [id number] [place] [address] Feb, [place] [address] [facility] [id number] [place] [address] Jul, [facility] [address] [facility] [id number] [place] [address] Feb, IMMUNIZATIONS No Known Immunizations SOCIAL HISTORY Never Assessed REASON FOR VISIT Pain management (chronic) WB-MA, Right ankle pain proximal to the heel, PT has warts on both feet that are causing pain PLAN OF CARE VITAL SIGNS Height 62 in 2017-10-30 Weight 248 lbs 2017-10-30 Temperature 97.2 degrees Fahrenheit 2017-10-30 Heart Rate 86 bpm 2017-10-30 Respiratory Rate 18 2017-10-30 BMI 45.35 kg/m2 2017-10-30 Blood pressure systolic 122 mmHg 2017-10-30 Blood pressure diastolic 82 mmHg 2017-10-30 MEDICATIONS Medication Instructions Dosage Frequency Start Date End Date Duration Status Magnesium Oxide 400 mg Orally Once a day 1 tablet as needed 24h 30 day(s) Active Victoza Active Benzonatate 100 MG TAKE ONE CAPSULE BY MOUTH THREE TIMES DAILY NEEDED 10 Active Potassium Chloride Marie ER 20 MEQ TAKE ONE TABLET BY MOUTH ONCE DAILY WITH FOOD 30 Active Lasix Active Lisinopril-Hydrochlorothiazide 20-25 MG TAKE ONE TABLET BY MOUTH ONCE DAILY 30 Active Spironolactone 25 MG TAKE ONE TABLET BY MOUTH ONCE DAILY 30 Active Omeprazole Active PredniSONE 20 mg 1 tablet 24h Active Cymbalta 60 mg Orally Twice a day 1 capsule 12h Aug, Active Terbinafine HCl 1 % Externally Twice a day 1 application to affected area 12h Aug, Active Folic Acid 1 MG TAKE ONE TABLET BY MOUTH ONCE DAILY (DO NOT TAKE ON DAYS YOU TAKE METHOTREXATE) 30 Active Glucocard Expression Test - as directed 24h Nov, 50 Active Furosemide 20 MG TAKE 1 TABLET BY MOUTH ONCE DAILY 30 Active Methotrexate 2.5 MG Orally 1 time per week 6 Active [place]amo 7.5-325 MG Orally every 6 hrs 1 tablet as needed 6h Oct, Active RESULTS Name Result Date Reference Range Xray : Ankle, Right 2 views (IN HOUSE) 2017-10-30 PROCEDURES Procedure Date Ordered Result Body Site X-RAY EXAM OF ANKLE October 30, 2017 INSTRUCTIONS MEDICATIONS ADMINISTERED No Known Medications MEDICAL (GENERAL) HISTORY Type Description Date Medical History type II diabetes-dx'd 12/2010 Medical History dysfunctional uterine bleeding--endometrial bx 12/2010 Medical History asthma Medical History hypertension Medical History obesity Medical History anxiety Medical History autoimmune disease Surgical History x1 Hospitalization History child Hospitalization History Asthma
--- OUTSIDE RECORDS SUMMARY | 2018-02-02 23:36 | XMS REPORT ---
Author Author MACY TAMAYO Organization [facility] Address [address] [place] [address] Care Team Providers Care Fitness Trainer Name Role Phone MACY TAMAYO Unavailable PROBLEMS Type Condition ICD9-CM Code UQI63-NQ Code Onset Dates Condition Status SNOMED Code Problem Lumbago with sciatica, left side M54.42 Active 187009136 Problem Tachycardia with heart rate 121-140 beats per minute R00.0 Active 9922825 Problem Controlled type 2 diabetes mellitus without complication, without long -term current use of insulin E11.9 Active 169840405 Problem Gait disturbance R26.9 Active 53100325 Problem Lumbago with sciatica, right side M54.41 Active 536407113 Problem Enlarged thyroid gland E04.9 Active 1095697 Problem Body mass index (BMI) of 45.0-49.9 in adult Z68.42 Active 232387706 Problem Morbid (severe) obesity due to excess calories E66.01 Active 940263212 Problem Dermatomyositis M33.90 Active 215966338 Problem Mood disorder F39 Active 96773852 Problem Diabetes type 2, controlled E11.9 Active 56393939 Problem Menopause Z78.0 Active 050104199 Problem Allergic rhinitis due to pollen J30.1 Active 60024812 Problem Other chronic pain G89.29 Active 85336896 Problem Arthritis M19.90 Active 8223928 Problem Osteoarthritis of right knee, unspecified osteoarthritis type M17.9 Active 484889341 Problem Plantar warts B07.0 Active 81813840 Problem Anxiety F41.9 Active 80730263 Problem Plantar wart of both feet B07.0 Active [id number] ALLERGIES Substance Reaction Event Type Date Status Fluarix Quadrivalent vomiting Drug Allergy Nov, Active Zoloft makes very angry Drug Allergy Nov, Active Fluarix vomiting Drug Allergy Nov, Active Aspirin rash Drug Allergy Nov, Active Latex, Natural Rubber rash Non Drug Allergy Nov, Active ENCOUNTERS Encounter Location Date Diagnosis [facility] [id number] [place] [address] 92095- 2226 28 Jan, 2018 [facility] [id number] [place] [address] 95821- 7584 27 Jan, 2018 [facility] [id number] [place] [address] 31503- 1209 14 Jan, 2018 [facility] [address] 98227- 8643 05 Jan, 2018 [facility] [id number] [place] [address] 66252- 1608 31 Dec, 2017 [facility] [id number] [place] [address] 46519- 6892 Dec, Acute right ankle pain M25.571 [facility] [id number] [place] [address] 41679- 0262 Dec, Other chronic pain G89.29 ; Diabetes type 2, controlled E11.9 ; Gait disturbance R26.9 ; Weakness R53.1 and Muscle spasm M62.838 [facility] [id number] [place] [address] 88014- 1839 Dec, Acute non-recurrent maxillary sinusitis J01.00 [facility] [id number] [place] [address] 50852- 4515 Dec, [facility] [id number] [place] [address] 28786- 8856 Dec, [facility] [id number] [place] [address] 92667- 8522 Dec, Acute non-recurrent maxillary sinusitis J01.00 [facility] [id number] [place] [address] 21795- 5052 Dec, Lumbago with sciatica, right side M54.41 and Lupus erythematosus L93.0 [facility] [id number] [place] [address] 42873- 2886 Dec, Mood disorder F39 [facility] [address] [place] [address] 87366- 4140 Dec, Mood disorder F39 [facility] [id number] [place] [address] 27098- 6644 Dec, [facility] [id number] [place] [address] 24654- 9629 Dec, Acute right ankle pain M25.571 [facility] [id number] [place] [address] 15375- 2071 Nov, Lumbar radiculopathy M54.16 [facility] [id number] [place] [address] 29590- 1401 Nov, [facility] [id number] [place] [address] 95131- 8661 Nov, Mood disorder F39 [facility] [id number] [place] [address] 53637- 3489 Nov, Lumbago with sciatica, right side M54.41 and Other chronic pain G89.29 [facility] [id number] [place] [address] 72790- 0401 Nov, Acute right ankle pain M25.571 [facility] [id number] [place] [address] 88505- 2681 Nov, [facility] [id number] [place] [address] 67555- 2279 Oct, [facility] [id number] [place] [address] 03913- 1811 Oct, Plantar wart of both feet B07.0 [facility] [id number] [place] [address] 14383- 4563 Oct, [facility] [id number] [place] [address] 78258- 7912 Oct, Acute right ankle pain M25.571 and Plantar wart of both feet B07.0 [facility] [id number] [place] [address] 77140- 9417 September, Other chronic pain G89.29 [facility] [id number] [place] [address] 89785- 5977 September, Other chronic pain G89.29 [facility] [address] 41462- 7436 September, Other chronic pain G89.29 [facility] [address] 98029- 0299 Aug, Mood disorder F39 [facility] [address] 68289- 8112 Aug, Other chronic pain G89.29 ; Controlled type 2 diabetes mellitus without complication, without long-term current use of insulin E11.9 ; Low back pain M54.5 and Tinea corporis B35.4 [facility] [id number] [place] [address] 34029- 1798 Aug, Mood disorder F39 and Anxiety F41.9 [facility] [id number] [place] [address] 98300- 9110 Aug, Mood disorder F39 and Anxiety F41.9 [facility] [id number] [place] [address] 26741- 7993 Jul, [facility] [id number] [place] [address] 77545 -5416 Jul, Scabies B86 and BMI 45.0-49.9, adult Z68.42 [facility] [address] 16571- 0598 Jul, [facility] [address] 91581- 1619 Jul, Mood disorder F39 and Anxiety F41.9 [facility] [address] [place] [address]- 8076 Jul, [facility] [id number] [place] [address] 20785 -1210 27 Jun, 2017 Bronchitis J40 ; Dark urine R82.99 and BMI 45.0-49.9, adult Z68.42 [facility] [address] 06581- 8653 14 Jun, 2017 Acute pain of right shoulder M25.511 and Acute pain of right knee M25.561 [facility] [address] 24336- 6627 May, BMI 40.0-44.9, adult Z68.41 ; Controlled type 2 diabetes mellitus without complication, without long-term current use of insulin E11.9 ; Muscle cramping R25.2 ; Hot flashes R23.2 ; Mood disorder F39 ; Anxiety F41.9 and Morbid (severe) obesity due to excess calories E66.01 [facility] [address] 91360- 9851 May, BMI 40.0-44.9, adult Z68.41 ; Controlled type 2 diabetes mellitus without complication, without long-term current use of insulin E11.9 ; Muscle cramping R25.2 and Hot flashes R23.2 [facility] [id number] [place] [address] 51167- 8414 May, Tachycardia with heart rate 121-140 beats per minute R00.0 ; Morbid (severe) obesity due to excess calories E66.01 ; Diabetes type 2, controlled E11.9 and Enlarged thyroid gland E04.9 [facility] [address] 11891- 9330 May, Encounter for well woman exam with [...] Dysuria R30.0 and Screening breast examination Z12.31 [facility] [id number] [place] [address] 02180- 8536 Apr, Mood disorder F39 ; Other chronic pain G89.29 and Anxiety F41.9 [facility] [address] 83559- 2385 Apr, Lumbago with sciatica, left side M54.42 and Other chronic pain G89.29 [facility] [address] 80799- 9222 Apr, Lupus erythematosus L93.0 [facility] [address] 52547- 2593 Mar, Plantar wart of both feet B07.0 [facility] [address] 02029- 2010 Mar, Lupus erythematosus L93.0 and Sinus drainage J34.89 [facility] [address] 78062- 8581 Mar, Mood disorder F39 ; Other chronic pain G89.29 and Anxiety F41.9 [facility] [id number] [place] [address] 89267- 3837 Mar, Mood disorder F39 ; Arthritis M19.90 and Plantar warts B07.0 [facility] [id number] [place] [address] 52179- 4109 Feb, Lupus erythematosus L93.0 [facility] [address] 30811- 0540 Feb, Other chronic pain G89.29 [facility] [id number] [place] [address] 73573- 3050 Feb, Mood disorder F39 and Anxiety F41.9 [facility] [address] [place] [address] 34248- 6736 Jan, [facility] [id number] [place] [address] 62512- 5689 Jan, Mood disorder F39 [facility] [id number] [place] [address] 80001- 2428 Dec, Nail, ingrown L60.0 [facility] [id number] [place] [address] 44948- 2736 Dec, Nail, ingrown L60.0 [facility] [id number] [place] [address] 25885- 4627 Nov, Mood disorder F39 and Anxiety F41.9 [facility] [id number] [place] [address] 58787- 5806 Nov, Sinus drainage J34.89 ; Hot flashes R23.2 ; Anxiety F41.9 and Diabetes type 2, controlled E11.9 [facility] [id number] [place] [address] 51347- 0897 Nov, Nail, ingrown L60.0 [facility] [id number] [place] [address] 92084- 2299 Oct, Anxiety F41.9 and Mood disorder F39 [facility] [id number] [place] [address] 64242- 4984 Oct, Nail, ingrown L60.0 and Anxiety F41.9 [facility] [address] [place] [address] 14748- 0070 Oct, Lupus erythematosus L93.0 [facility] [id number] [place] [address] 76959- 3592 September, [facility] [id number] [place] [address] 21291- 2668 September, [facility] [id number] [place] [address] 64401- 2840 September, Lupus erythematosus L93.0 [facility] [address] [address]- 4226 Aug, [facility] [id number] [place] [address] 33237 2546 Aug, Mood disorder F39 and Anxiety F41.9 [facility] [id number] [place] [address] 42269- 9402 Aug, Lupus erythematosus L93.0 ; Diabetes type 2, controlled E11.9 and Localized edema R60.0 [facility] [id number] [place] [address] 12140- 8549 Aug, [facility] [id number] [place] [address] 27679- 4756 Jul, Anxiety F41.9 and Mood disorder F39 [facility] [id number] [place] [address] 11355- 0747 Jul, Diabetes type 2, controlled E11.9 [facility] [address] [place] [address] 45838- 3786 Jun, Anxiety F41.9 [facility] [id number] [place] [address] 11014- 8287 May, [facility] [id number] [place] [address] 45815- 3330 May, [facility] [id number] [place] [address] 45991- 2410 May, Nausea R11.0 ; Other chronic pain G89.29 and Pain in right knee M25.561 [facility] [id number] [place] [address] 30179- 7616 May, [facility] [address] [place] [address] 94486- 6520 Apr, Tear of medial meniscus of right knee, current, unspecified tear type, subsequent encounter S83.241D and Tear of lateral meniscus of right knee, current, unspecified tear type, subsequent encounter S83.281D [facility] [id number] [place] [address] 23257- 4052 09 Apr, 2016 Anxiety F41.9 and Mood disorder F39 [facility] [id number] [place] [address] 19758- 1392 Apr, Anxiety F41.9 [facility] [address] 99140- 4630 Apr, [facility] [id number] [place] [address] 23742- 9106 Mar, [facility] [address] 78653- 0341 Mar, Lupus erythematosus L93.0 and Diabetes type 2, controlled E11.9 [facility] [address] 92174- 7937 Mar, Mood disorder F39 [facility] [address] 61607- 9858 Mar, Tear of lateral meniscus of right knee, current, unspecified tear type, initial encounter S83.281A and Osteoarthritis of right knee, unspecified osteoarthritis type M17.9 [facility] [id number] [place] [address] 29110- 7885 Mar, [facility] [id number] [place] [address] 77444- 4287 Feb, Mood disorder F39 [facility] [id number] [place] [address] 72329- 3105 Feb, Rash R21 [facility] [address] 96515- 6222 Feb, [facility] [id number] [place] [address] 00082- 9701 Jan, Other chronic pain G89.29 and Muscle spasm M62.838 [facility] [id number] [place] [address] 01961- 5452 Jan, Mood disorder F39 [facility] [address] [place] [address] 49293- 6702 Jan, Pain in right knee M25.561 ; Other chronic pain G89.29 and Muscle spasm M62.838 [facility] [address] [place] [address] 12915- 9852 Dec, [facility] [id number] [place] [address] 05261- 3408 Dec, [facility] [id number] [place] [address] 90644- 9743 Nov, [facility] [id number] [place] [address] 84547- 4308 Nov, Mood disorder F39 [facility] [id number] [place] [address] 60616- 0541 Nov, Diabetes type 2, controlled E11.9 ; Bronchitis J40 ; Edema, unspecified type R60.9 ; Weight gain R63.5 and Right knee pain, unspecified chronicity M25.561 [facility] [id number] [place] [address] 62782- 3526 Oct, Mood disorder F39 [facility] [address] [place] [address] 33330- 7477 Oct, Lupus erythematosus L93.0 and Bilateral edema of lower extremity R60.0 [facility] [address] [place] [address] 22083- 3767 Oct, Mood disorder F39 and Anxiety F41.9 [facility] [address] [place] [address] 91204- 5365 September, Mood disorder F39 ; Anxiety F41.9 and Anger reaction R45.4 [facility] [address] [place] [address] 23840- 6987 September, Diabetes type 2, controlled E11.9 ; Edema, unspecified type R60.9 and Fatigue, unspecified type R53.83 [facility] [address] [place] [address] 67796- 9488 Aug, Mood disorder F39 and Generalized anxiety disorder F41.1 [facility] [id number] [place] [address] 32017- 0428 Aug, Diabetes type 2, controlled E11.9 ; Sinusitis J32.9 and Mood disorder F39 [facility] [id number] [place] [address] 11556- 7850 Aug, Lupus erythematosus L93.0 [facility] [id number] [place] [address] 41903- 3021 Aug, [facility] [address] 59651- 0126 Aug, [facility] [address] 14561- 4614 Jul, Diabetes type 2, controlled E11.9 [facility] [id number] [place] [address] 40523- 6458 Jul, Mood disorder F39 and Depression F32.9 [facility] [id number] [place] [address] 14958- 5138 Jul, Lupus erythematosus L93.0 and Diabetes type 2, controlled E11.9 [facility] [id number] [place] [address] 47968- 6138 Jul, Mood disorder F39 and Anxiety F41.9 [facility] [id number] [place] [address] 46777- 3096 Jul, [facility] [id number] [place] [address] 98421- 1653 Jul, [facility] [id number] [place] [address] 80609- 2547 Jun, Mood disorder F39 and Anxiety F41.9 [facility] [address] [address]- 5461 Jun, Mood disorder F39 [facility] [id number] [place] [address] 83018- 2306 18 Jun, 2015 [facility] [id number] [place] [address] 09613- 4152 Jun, [facility] [id number] [place] [address] 31770- 4272 Jun, Mood disorder F39 [facility] [id number] [place] [address] 13483- 6768 Jun, [facility] [id number] [place] [address] 55610- 8755 May, [facility] [id number] [place] [address] 19142- 1809 May, [facility] [id number] [place] [address] 88930- 9341 May, [facility] [id number] [place] [address] 72531- 0615 May, [facility] [address] [place] [address] 02033- 2830 May, Anxiety F41.9 ; Dermatomyositis M33.90 and Diabetes type 2, controlled E11.9 [facility] [address] [place] [address] 26007 -5543 May, Sinusitis J32.9 and Cough R05 [facility] [address] [place] [address] 05211- 7349 May, Mood disorder F39 [facility] [id number] [place] [address] 42430- 7043 May, Adjustment disorder with mixed anxiety and depressed mood F43.23 [facility] [id number] [place] [address] 66899- 4549 Apr, [facility] [address] [address]- 9163 Apr, [facility] [address] [place] [address] 077098- 8098 Apr, Generalized anxiety disorder F41.1 and Mood disorder F39 [facility] [address] [place] [address] 91879- 1537 Mar, [facility] [address] [place] [address] 14629- 6450 Mar, [facility] [id number] [place] [address] 57796- 9506 Mar, [facility] [address] [place] [address] 82299- 6263 Mar, Mood disorder F39 [facility] [id number] [place] [address] 37087- 2156 Feb, [facility] [id number] [place] [address] 68266- 4540 Feb, Diabetes E11.9 and Bronchitis J40 [facility] [address] [place] [address] 78680- 0281 Feb, [facility] [address] [place] [address] 10271- 4270 Feb, [facility] [address] [place] [address] 02089- 2546 Feb, Major depression, recurrent, full remission F33.42 and KELLY ( generalized anxiety disorder) F41.1 [facility] [address] [place] [address] 35936- 8024 Feb, [facility] [address] [place] [address] 18222- 3625 Feb, Single major depressive episode, in partial or unspecified remission F32.5 [facility] [address] [address]- 6369 Jan, Fatigue 780.79 [facility] [id number] [place] [address] 64128- 3162 Jan, [facility] [id number] [place] [address] 95885- 4833 Jan, Diabetes with other specified manifestations, type II or unspecified type, not stated as uncontrolled 250.80 [facility] [address] [place] [address] 87702- 3960 Jan, [facility] [address] [place] [address] 54106- 4464 Dec, Hot flashes 627.2 ; Memory loss 780.93 and Joint pain 719.40 [place] [id number] [place] [address] 39067- 5547 Dec, Major depression, recurrent 296.30 ; Generalized anxiety disorder 300.02 ; Adjustment disorder with depressed mood 309.0 and No condition on Epworth II V71.09 [place] [address] [place] [id number] [place] [address] [id number]- 1654 Dec, [place] [address] [place] [id number] [place] [address] 52459- 6687 Nov, Cognitive and neurobehavioral dysfunction 294.9 ; Major depressive disorder, recurrent episode, moderate degree 296.32 and Anxiety state , unspecified 300.00 [place] [id number] [place] [address] [id number]- 6862 Nov, [facility] [id number] [place] [address] 88793- 9811 Nov, Bronchitis 490 and Diabetes with other specified manifestations, type II or unspecified type, not stated as uncontrolled 250.80 [place] [id number] [place] [address] [phone]- 0568 Nov, Major depressive disorder, recurrent episode, moderate 296.32 and Anxiety disorder, unspecified 300.00 [place] [id number] [address] Nov, Anxiety, generalized 300.02 ; Intermittent explosive disorder 312.34 ; No condition on Epworth II V71.09 and No condition on axis III V71.09 [id number] [place] [address] 78787- 5465 Oct, Diabetes with other specified manifestations, type II or unspecified type, not stated as uncontrolled 250.80 ; Urinary tract infection, site not specified 599.0 and Bronchitis [id number] [place] [address] 63770- 1582 Oct, Intermittent explosive disorder 312.34 ; Bipolar 1 disorder , depressed, moderate 296.52 ; Major depression, chronic 296.20 ; No condition on Epworth II V71.09 and No condition on axis III V71.09 [place] [id number] [place] [address]- 4667 Oct, Major depressive disorder, recurrent episode, moderate 296.32 ; Anxiety state 300.00 ; Cognitive decline 294.9 and No condition on Epworth II V71.09 [id number] [place] [address] 16938- 1154 Oct, [id number] [place] [address] 51517- 3779 Oct, Major depressive disorder, recurrent episode, moderate 296.32 ; Anxiety disorder, unspecified 300.00 and Persistent disorder of initiating or maintaining sleep 307.42 [id number] [place] [address] 97368- 2654 September, Diabetes with other specified manifestations, type II or unspecified type, not stated as uncontrolled 250.80 ; Memory loss 780.93 and Cognitive complaints 799.59 [id number] [place] [address] 45032- 8875 September, No condition on Epworth II V71.09 ; Major depression, recurrent 296.30 and Persistent mood [affective] disorder, unspecified 296.90 [place] [id number] [address] 28 Aug, 2014 [facility] [place] [facility] [address] [id number] [place] [address]- 9518 14 Aug, 2014 [facility] [place] [facility] [address] [id number] [place] [address]- 4630 13 Aug, 2014 [facility] [place] [facility] [address] [id number] [place] [address]- 2078 Jul, [facility] [place] [facility] [address] [id number] [place] [address]- 4911 Jul, [facility] [place] [facility] [address] [id number] [place] [address]- 3615 Jul, [facility] [place] [facility] [address] [facility] [id number] [place] [address]- 6539 Jul, [facility] [place] [facility] [address] [facility] [id number] [place] [address]- 2328 Jul, [facility] [place] [facility] [address] [facility] [id number] [place] [address]- 8228 18 Jun, 2014 [facility] [place] [facility] [id number] [place] [address] 2909 18 Jun, 2014 [facility] [place] [facility] [address] [facility] [id number] [place] [address]- 5880 13 Jun, 2014 [facility] [place] [facility] [address] [facility] [id number] [place] [address]- 1053 13 Jun, 2014 [facility] [place] [facility] [address] [facility] [id number] [place] [address]- 7626 12 Jun, 2014 [facility] [place] [facility] [address] [facility] [id number] [place] [address]- 3123 12 Jun, 2014 [facility] [place] [facility] [address] [facility] [id number] [address] 05 Jun, 2014 [facility] [place] [facility] [address] [facility] [id number] [address]- 1822 Jun, 2014 [facility] [place] [facility] [address] [facility] [id number] [place] [address]- 5198 Jun, 2014 [facility] [place] [facility] [address] [id number] [place] Jun, 2014 [facility] [place] [facility] [address] [facility] [id number] [place] [address]- 0665 Jun, 2014 [facility] [place] [facility] [address] [id number] [place] [address]- 9942 Jun, 2014 [facility] [place] [facility] [address] [facility] [id number] [place] [address]- 3603 Jun, 2014 [facility] [place] [facility] [address] [facility] [id number] [place] [address]- 5431 May, [facility] [place] [facility] [address] [facility] [id number] [place] [address]- 9560 May, [facility] [place] [facility] [address] [facility] [id number] [place] [address]- 0229 Apr, [facility] [place] [facility] [address] [facility] [id number] [place] [address]- 7598 Apr, [facility] [place] [facility] [address] [facility] [id number] [place] [address]- 7109 Apr, [facility] [place] [facility] [address] [facility] [id number] [place] [address]- 2350 Apr, [facility] [place] [facility] [address] [facility] [id number] [place] [address]- 1551 Apr, [facility] [place] [facility] [address] [facility] [id number] [place] [address]- 4613 Apr, [facility] [place] [facility] [address] [facility] [id number] [place] [address]- 8641 Apr, [facility] [place] [facility] [address] [facility] [id number] [place] [address]- 2268 Apr, [facility] [place] [facility] [address] [id number] [place] [address]- 1302 15 Apr, 2014 [facility] [place] [facility] [address] [id number] [place] [address]- 2828 Apr, [facility] [place] [facility] [address] [id number] [place] [address]- 1176 Apr, [facility] [place] [facility] [address] [id number] [place] [address]- 4436 Apr, [facility] [place] [facility] [address] [id number] [place] [address]- 2336 Apr, [facility] [place] [facility] [address] [id number] [place] [address]- 3589 Apr, [facility] [place] [facility] [address] [id number] [place] [address]- 4408 Apr, [facility] [place] [facility] [address] [id number] [place] [address]- 1010 Apr, [facility] [place] [facility] [address] [id number] [place] [address]- 0405 Apr, [facility] [place] [facility] [address] [id number] [place] [address]- 5109 Apr, [facility] [place] [facility] [address] [id number] [place] [address]- 4758 Apr, [facility] [place] [facility] [address] [id number] [place] [address]- 7790 Apr, [facility] [place] [facility] [address] [id number] [place] [address]- 6661 Mar, [facility] [place] [facility] [address] [id number] [place] [address]- 2211 Mar, [facility] [place] [facility] [address] [id number] [place] [address]- 1857 Mar, [facility] [place] [facility] [address] [id number] [place] [address]- 7226 Mar, [facility] [place] [facility] [address] [id number] [place] [address]- 6497 Mar, [facility] [place] [facility] [address] [id number] [place] [address]- 6912 Mar, [facility] [place] [facility] [address] [id number] [place] [address]- 3800 Mar, [facility] [place] [facility] [address] [id number] [place] [address]- 9314 Mar, [facility] [place] [facility] [address] [id number] [place] [address]- 9800 Mar, [facility] [place] [facility] [address] [id number] [place] [address]- 7422 Mar, [facility] [place] [facility] [address] [id number] [place] [address]- 6461 Mar, [facility] [place] [facility] [address] [id number] [place] [address]- 5744 Mar, [facility] [place] [facility] [address] [id number] [place] [address]- 6867 Mar, [facility] [place] [facility] [address] [id number] [address]- 6021 Feb, [facility] [place] [facility] [address] [id number] [address]- 8069 Feb, [facility] [place] [facility] [address] [id number] [place] [address]- 1579 30 Feb, 2014 [facility] [place] [facility] [address] [id number] [place] [address]- 4732 Feb, [facility] [place] [facility] [address] [id number] [address]- 4114 Feb, [facility] [place] [facility] [address] [id number] [place] [address]- 4104 Feb, [facility] [place] [facility] [address] [id number] [place] [address]- 2573 Feb, [facility] [place] [facility] [address] [id number] [place] [address]- 6976 Feb, [facility] [place] [facility] [address] [id number] [place] [address]- 7271 Feb, [facility] [place] [facility] [address] [id number] [place] [address]- 6368 Feb, [facility] [place] [facility] [address] [id number] [place] [address]- 4785 13 Feb, 2014 [facility] [place] [facility] [address] [id number] [place] [address]- 5119 Feb, [facility] [place] [facility] [address] [id number] [place] [address]- 7621 10 Feb, 2014 [facility] [place] [facility] [address] [id number] [place] [address]- 8930 Feb, [facility] [place] [facility] [address] [id number] [place] [address]- 4450 07 Feb, 2014 [facility] [place] [facility] [address] [id number] [place] [address]- 4964 10 Jan, 2014 [facility] [place] [facility] [address] [id number] [place] [address]- 3186 08 Jan, 2014 [facility] [place] [facility] [address] [id number] [place] [address]- 1493 08 Jan, 2013 [facility] [place] [facility] [address] [id number] [place] [address]- 1378 08 Jan, 2013 [facility] [place] [facility] [address] [id number] [place] [address]- 9585 08 Jan, 2014 [facility] [place] [facility] [address] [id number] [place] [address]- 1120 Dec, [facility] [place] [facility] [address] [id number] [place] [address]- 3767 Dec, [facility] [place] [facility] [address] [id number] [place] [address]- 2542 Dec, [facility] [place] [facility] [address] [id number] [place] [address]- 5889 Dec, [facility] [place] [facility] [address] [id number] [place] [address]- 8077 Nov, [facility] [place] [facility] [address] [id number] [place] [address]- 9377 Nov, [facility] [place] [facility] [address] [id number] [place] [address]- 9370 Nov, [facility] [place] [facility] [address] [id number] [place] [address]- 5588 Nov, [facility] [place] [facility] [address] [id number] [place] [address]- 9639 Nov, [facility] [place] [facility] [address] [id number] [place] [address]- 9044 Nov, [facility] [place] [facility] [address] [id number] [place] [address]- 8979 Nov, [facility] [place] [facility] [address] [id number] [place] [address]- 6873 Nov, [facility] [place] [facility] [address] [id number] [place] [address]- 8892 Nov, [facility] [place] [facility] [address] [id number] [place] [address]- 4892 Nov, [facility] [place] [facility] [address] [id number] [place] [address]- 8852 Oct, [facility] [place] [facility] [address] [id number] [place] [address]- 6969 Oct, [facility] [place] [facility] [address] [id number] [place] [address]- 1533 September, [facility] [place] [facility] [address] [id number] [place] [address]- 3796 September, [facility] [place] [facility] [address] [id number] [place] [address]- 6086 September, [facility] [place] [facility] [address] [id number] [place] [address]- 6266 September, [facility] [place] [facility] [address] [id number] [place] [address]- 8000 16 Aug, 2013 [facility] [place] [facility] [address] [id number] [place] [address]- 0302 Aug, [facility] [place] [facility] [address] [id number] [place] [address]- 8922 Aug, [facility] [place] [facility] [address] [id number] [place] [address]- 5901 Jul, [facility] [place] [facility] [address] [id number] [place] [address]- 6119 Jul, [facility] [place] [facility] [address] [id number] [place] [address]- 1193 Jul, [facility] [place] [facility] [address] [id number] [place] [address]- 9213 Jul, [facility] [place] [facility] [address] [id number] [place] [address]- 4883 May, [facility] [place] [facility] [address] [id number] [place] [address]- 5054 May, [facility] [place] [facility] [address] [id number] [address]- 8550 May, [facility] [place] [facility] [address] [id number] [place] [address]- 2406 Mar, [facility] [place] [facility] [address] [id number] [place] [address]- 0348 15 Mar, 2013 [facility] [place] [facility] [address] [id number] [place] [address]- 7683 13 Mar, 2013 [facility] [place] [facility] [address] [id number] [place] [address]- 2546 Mar, [facility] [address] [id number] [place] [address]- 0303 Feb, [facility] [place] [facility] [address] [id number] [place] [address]- 2546 Feb, [facility] [address] [id number] [place] [address]- 3439 Feb, [facility] [address] [id number] [place] [address]- 8815 Jan, [facility] [address] [id number] [place] [address]- 3097 Jan, [facility] [address] [id number] [place] [address]- 3619 Jan, [facility] [address] [id number] [place] [address]- 2386 Dec, [facility] [address] [id number] [place] [address]- 8210 Dec, [facility] [place] [facility] [address] [id number] [place] [address]- 0241 Dec, [facility] [address] [id number] [place] [address]- 7732 Dec, [facility] [place] [facility] [address] [id number] [place] [address]- 7953 Nov, [facility] [address] [id number] [place] [address]- 0006 Oct, [facility] [place] [facility] [address] [id number] [place] [address]- 8252 Oct, [facility] [place] [facility] [address] [id number] [place] [address]- 5096 September, [facility] [place] [facility] [address] [id number] [place] [address]- 8017 September, [facility] [address] [id number] [place] [address]- 4531 September, [facility] [address] [id number] [place] [address]- 2551 30 Aug, 2012 [facility] [place] [facility] [address] [id number] [place] [address]- 3131 Aug, [facility] [place] [facility] [address] [id number] [place] [address]- 0046 Aug, [facility] [address] [id number] [place] [address]- 5180 Aug, [facility] [place] [facility] [address] [id number] [place] [address]- 1024 26 Jul, 2012 [facility] [address] [id number] [place] [address]- 0092 Jul, [facility] [address] [id number] [place] [address]- 0603 Jul, [facility] [place] [facility] [address] [id number] [place] [address]- 1133 15 Jul, 2012 [facility] [place] [facility] [address] [id number] [place] [address]- 5410 14 Jul, 2012 [facility] [place] [facility] [address] [id number] [place] [address]- 3435 Jul, [facility] [place] [facility] [address] [id number] [place] [address]- 7652 Jul, [facility] [place] [facility] [address] [id number] [place] [address]- 3658 Jun, [facility] [place] [facility] [address] [id number] [place] [address]- 2596 Jun, [facility] [place] [facility] [address] [id number] [place] [address]- 6748 Jun, [facility] [place] [facility] [address] [id number] [place] [address]- 0713 Jun, [facility] [address] [id number] [place] [address]- 0620 May, [facility] [place] [facility] [address] [id number] [place] [address]- 1780 May, [facility] [place] [facility] [address] [id number] [place] [address]- 7612 May, [facility] [place] [facility] [address] [id number] [place] [address]- 0330 May, [facility] [address] [id number] [place] [address]- 4518 May, [facility] [place] [facility] [address] [id number] [place] [address]- 9437 Apr, [facility] [address] [id number] [place] [address]- 1090 Apr, [facility] [place] [facility] [address] [id number] [place] [address]- 4833 Mar, [facility] [place] [facility] [address] [id number] [place] [address]- 3548 Mar, [facility] [place] [facility] [address] [id number] [place] [address]- 8902 Mar, [facility] [place] [facility] [address] [id number] [place] [address]- 2441 Mar, [facility] [place] [facility] [address] [id number] [place] [address]- 4178 Mar, [facility] [place] [facility] [address] [id number] [place] [address]- 0367 Mar, [facility] [place] [facility] [address] [id number] [place] [address]- 8122 Mar, [facility] [place] [facility] [address] [id number] [place] [address]- 1069 Mar, [facility] [place] [facility] [address] [id number] [place] [address]- 4379 Mar, [facility] [place] [facility] [address] [id number] [place] [address]- 5973 Mar, [facility] [place] [facility] [address] [id number] [place] [address]- 1100 Feb, [facility] [place] [facility] [address] [id number] [place] [address]- 9724 Feb, [facility] [place] [facility] [address] [id number] [place] [address]- 9190 Feb, [facility] [place] [facility] [address] [id number] [place] [address]- 3155 Feb, [facility] [place] [facility] [address] [id number] [place] [address]- 9261 Feb, [facility] [place] [facility] [address] [id number] [place] [address]- 5960 Feb, [facility] [place] [facility] [address] [id number] [place] [address]- 1962 Feb, [facility] [place] [facility] [address] [id number] [place] [address]- 9396 Jan, [facility] [place] [facility] [address] [id number] [place] [address]- 9832 Jan, [facility] [place] [facility] [address] [id number] [place] [address]- 8680 Dec, [facility] [place] [facility] [address] [id number] [place] [address]- 7364 Dec, [facility] [place] [facility] [address] [id number] [place] [address]- 5746 Dec, [facility] [place] [facility] [address] [id number] [place] [address]- 8891 Dec, [facility] [place] [facility] [address] [id number] [place] [address]- 3896 16 Dec, 2011 [facility] [address] [id number] [place] [address]- 8053 Dec, [facility] [place] [facility] [address] [id number] [place] [address]- 2267 Nov, [facility] [place] [facility] [address] [id number] [place] [address]- 1763 Nov, [facility] [place] [facility] [address] [id number] [place] [address]- 8912 Nov, [facility] [place] [facility] [address] [id number] [place] [address]- 7399 Nov, [facility] [place] [facility] [address] [id number] [place] [address]- 3871 September, [facility] [place] [facility] [address] [id number] [place] [address]- 4196 September, [facility] [place] [facility] [address] [id number] [place] [address]- 2140 September, [facility] [place] [facility] [address] [id number] [place] [address]- 3227 Jul, [facility] [place] [facility] [address] [id number] [place] [address]- 0884 29 Jun, 2011 [facility] [place] [facility] [address] [id number] [place] [address] Jun, [facility] [place] [facility] [address] [id number] [place] [address] Jun, [facility] [place] [facility] [address] [id number] [place] [address] Apr, [facility] [place] [facility] [address] [id number] [place] [address] 28 Mar, 2011 [facility] [place] [facility] [address] [id number] [place] [address] 15 Mar, 2011 [facility] [place] [facility] [address] [id number] [place] [address] Feb, [facility] [address] [facility] [id number] [address] Feb, [facility] [address] [facility] [id number] [place] [address] Feb, [facility] [address] [facility] [id number] [place] [address] Jul, [facility] [address] [facility] [id number] [place] [address] Feb, IMMUNIZATIONS No Known Immunizations SOCIAL HISTORY Never Assessed REASON FOR VISIT Lower back pain WB-MA, PT says her back is constantly locking up , PT was barely able to walk into the room this morning, Both of her feet are swollen PLAN OF CARE VITAL SIGNS Height 62 in 2017-11-30 Weight 252 lbs 2017-11-30 Temperature 97.6 degrees Fahrenheit 2017-11-30 Heart Rate 92 bpm 2017-11-30 Respiratory Rate 20 2017-11-30 BMI 46.09 kg/m2 2017-11-30 Blood pressure systolic 126 mmHg 2017-11-30 Blood pressure diastolic 82 mmHg 2017-11-30 MEDICATIONS Medication Instructions Dosage Frequency Start Date End Date Duration Status Magnesium Oxide 400 mg Orally Once a day 1 tablet as needed 24h 30 day(s) Active Cymbalta 60 mg Orally Twice a day 1 capsule 12h Aug, Active Folic Acid 1 MG TAKE ONE TABLET BY MOUTH ONCE DAILY (DO NOT TAKE ON DAYS YOU TAKE METHOTREXATE) 30 Active Glucocard Expression Test - as directed 24h Nov, 50 Active Lasix Active Methotrexate 2.5 MG Orally 1 time per week 6 Active Terbinafine HCl 1 % Externally Twice a day 1 application to affected area 12h Aug, Active Furosemide 20 MG TAKE 1 TABLET BY MOUTH ONCE DAILY 30 Active Victoza Active Omeprazole Active PredniSONE 20 mg 1 tablet 24h Active Neurontin 300 MG Orally Three times a day 1 capsule 8h Nov, 30 day(s) Active Berne 7.5-325 MG Orally every 6 hrs 1 tablet as needed 6h Nov, Active Benzonatate 100 MG TAKE ONE CAPSULE BY MOUTH THREE TIMES DAILY NEEDED 10 Active Potassium Chloride Marie ER 20 MEQ TAKE ONE TABLET BY MOUTH ONCE DAILY WITH FOOD 30 Active Lisinopril-Hydrochlorothiazide 20-25 MG TAKE ONE TABLET BY MOUTH ONCE DAILY 30 Active PredniSONE 20 mg Orally Once a day 2 tablets 24h Nov, Nov, 05 days Active Spironolactone 25 MG TAKE ONE TABLET BY MOUTH ONCE DAILY 30 Active RESULTS Name Result Date Reference Range Xray : Spine, Lumbar 2-3 views (IN HOUSE) 2017-11-30 PROCEDURES Procedure Date Ordered Result Body Site X-RAY EXAM OF LOWER SPINE November 30, 2017 INSTRUCTIONS MEDICATIONS ADMINISTERED No Known Medications MEDICAL (GENERAL) HISTORY Type Description Date Medical History type II diabetes-dx'd 12/2010 Medical History dysfunctional uterine bleeding--endometrial bx 12/2010 Medical History asthma Medical History hypertension Medical History obesity Medical History anxiety Medical History autoimmune disease Surgical History x1 Hospitalization History child Hospitalization History Asthma
--- OUTSIDE RECORDS SUMMARY | 2018-02-02 23:37 | XMS REPORT ---
Author Author MACY TAMAYO Organization [facility] Address [address] [place] [address] Care Team Providers [employer] Controls Engineer Name Role Phone MACY TAMAYO Unavailable PROBLEMS Type Condition ICD9-CM Code OQE10-OI Code Onset Dates Condition Status SNOMED Code Problem Lumbago with sciatica, left side M54.42 Active 452217404 Problem Tachycardia with heart rate 121-140 beats per minute R00.0 Active 2476006 Problem Controlled type 2 diabetes mellitus without complication, without long -term current use of insulin E11.9 Active 299691411 Problem Gait disturbance R26.9 Active 40465386 Problem Lumbago with sciatica, right side M54.41 Active 407869221 Problem Enlarged thyroid gland E04.9 Active 6306559 Problem Body mass index (BMI) of 45.0-49.9 in adult Z68.42 Active 408624487 Problem Morbid (severe) obesity due to excess calories E66.01 Active 695995218 Problem Dermatomyositis M33.90 Active 144461781 Problem Mood disorder F39 Active 13194800 Problem Diabetes type 2, controlled E11.9 Active 21688824 Problem Menopause Z78.0 Active 339098679 Problem Allergic rhinitis due to pollen J30.1 Active 22239540 Problem Other chronic pain G89.29 Active 54046965 Problem Arthritis M19.90 Active 2045069 Problem Osteoarthritis of right knee, unspecified osteoarthritis type M17.9 Active 051102822 Problem Plantar warts B07.0 Active 41866229 Problem Anxiety F41.9 Active 72117584 Problem Plantar wart of both feet B07.0 Active [id number] ALLERGIES No Information ENCOUNTERS Encounter Location Date Diagnosis [facility] [address] [facility] [id number] [address] Jan, [facility] [address] [facility] [id number] [address] Jan, [facility] [id number] [place] [address] 05140- 2609 14 Jan, 2018 [facility] [address] 65976- 0217 05 Jan, 2018 [facility] [id number] [place] [address] 74528- 4491 Dec, [facility] [address] 31146- 0124 Dec, Acute right ankle pain M25.571 [facility] [address] 77480- 3313 Dec, Other chronic pain G89.29 ; Diabetes type 2, controlled E11.9 ; Gait disturbance R26.9 ; Weakness R53.1 and Muscle spasm M62.838 [facility] [address] 18908- 4723 Dec, Acute non-recurrent maxillary sinusitis J01.00 [facility] [id number] [place] [address] 25836- 7850 Dec, [facility] [id number] [place] [address] 49497- 3350 Dec, [facility] [id number] [place] [address] 70793- 6964 Dec, Acute non-recurrent maxillary sinusitis J01.00 [facility] [id number] [place] [address] 55349- 3161 Dec, Lumbago with sciatica, right side M54.41 and Lupus erythematosus L93.0 [facility] [id number] [place] [address] 22894- 9075 Dec, Mood disorder F39 [facility] [id number] [place] [address] 22407- 8591 13 Dec, 2017 Mood disorder F39 [facility] [id number] [place] [address] 85895- 8566 Dec, [facility] [address] [address] 9997 Dec, Acute right ankle pain M25.571 [facility] [address] [place] [address] 28021- 9946 Nov, Lumbar radiculopathy M54.16 [facility] [id number] [place] [address] 69846- 9873 Nov, [facility] [id number] [place] [address] 51150- 4972 Nov, Mood disorder F39 [facility] [id number] [place] [address] 36105- 8527 Nov, Lumbago with sciatica, right side M54.41 and Other chronic pain G89.29 [facility] [id number] [place] [address] 55881- 7769 Nov, Acute right ankle pain M25.571 [facility] [address] [place] [address] 20752- 5904 Nov, [facility] [address] [place] [address] 39093- 1981 Oct, [facility] [address], [place] [address] 0148 Oct, Plantar wart of both feet B07.0 [facility] [address], [place] [address] 4197 Oct, [facility] [address] [place] [address] 97849- 9144 Oct, Acute right ankle pain M25.571 and Plantar wart of both feet B07.0 [facility] [address] [address] 2038 September, Other chronic pain G89.29 [facility] [id number] [place] [address] 88857- 6200 September, Other chronic pain G89.29 [place] [address] 671784- 7549 September, Other chronic pain G89.29 [place] [address] 74220- 2372 Aug, Mood disorder F39 [place] [address] 10267- 8540 Aug, Other chronic pain G89.29 ; Controlled type 2 diabetes mellitus without complication, without long-term current use of insulin E11.9 ; Low back pain M54.5 and Tinea corporis B35.4 [place] [address] 09446- 8187 Aug, Mood disorder F39 and Anxiety F41.9 [place] [address] 97118- 4432 Aug, Mood disorder F39 and Anxiety F41.9 [place] [address] 12555- 5162 Jul, [facility] [address] 50635 -3483 Jul, Scabies B86 and BMI 45.0-49.9, adult Z68.42 [place] [address] 38168- 0250 Jul, [place] [address] 91191- 7872 Jul, Mood disorder F39 and Anxiety F41.9 [place] [address] 06950- 2275 Jul, [facility] [address] 09898 -1846 Jun, Bronchitis J40 ; Dark urine R82.99 and BMI 45.0-49.9, adult Z68.42 [place] [id number] [place] [address] 75535- 8376 14 Jun, 2017 Acute pain of right shoulder M25.511 and Acute pain of right knee M25.561 [place] [id number] [place] [address] 70053- 5726 May, BMI 40.0-44.9, adult Z68.41 ; Controlled type 2 diabetes mellitus without complication, without long-term current use of insulin E11.9 ; Muscle cramping R25.2 ; Hot flashes R23.2 ; Mood disorder F39 ; Anxiety F41.9 and Morbid (severe) obesity due to excess calories E66.[address] 92075- 8780 May, BMI 40.0-44.9, adult Z68.41 ; Controlled type 2 diabetes mellitus without complication, without long-term current use of insulin E11.9 ; Muscle cramping R25.2 and Hot flashes R23.2 [place] [id number] [place] [address] 27701- 3627 May, Tachycardia with heart rate 121-140 beats per minute R00.0 ; Morbid (severe) obesity due to excess calories E66.01 ; Diabetes type 2, controlled E11.9 and Enlarged thyroid gland E04.9 [place] [id number] [place] [address] 95640- 6467 May, Encounter for well woman exam with [...] Dysuria R30.0 and Screening breast examination Z12.31 [place] [id number] [place] [address] 90782- 2514 Apr, Mood disorder F39 ; Other chronic pain G89.29 and Anxiety F41.9 [facility] [address] 32653- 7776 Apr, Lumbago with sciatica, left side M54.42 and Other chronic pain G89.29 [facility] [address] 82197- 5099 Apr, Lupus erythematosus L93.0 [facility] [id number] [place] [address] 63239- 2006 Mar, Plantar wart of both feet B07.0 [facility] [address] 30140- 4064 Mar, Lupus erythematosus L93.0 and Sinus drainage J34.89 [facility] [address] 04455- 4169 Mar, Mood disorder F39 ; Other chronic pain G89.29 and Anxiety F41.9 [facility] [id number] [place] [address] 36049- 0504 Mar, Mood disorder F39 ; Arthritis M19.90 and Plantar warts B07.0 [facility] [id number] [place] [address] 24978- 3273 Feb, Lupus erythematosus L93.0 [facility] [id number] [place] [address] 51489- 5679 Feb, Other chronic pain G89.29 [facility] [id number] [place] [address] 32281- 8060 Feb, Mood disorder F39 and Anxiety F41.9 [facility] [id number] [place] [address] 47563- 8606 Jan, [facility] [id number] [place] [address] 33083- 4343 Jan, Mood disorder F39 [facility] [id number] [place] [address] 56634- 9975 Dec, Nail, ingrown L60.0 [facility] [id number] [place] [address] 96625- 3738 Dec, Nail, ingrown L60.0 [facility] [id number] [place] [address] 53692- 0840 Nov, Mood disorder F39 and Anxiety F41.9 [facility] [id number] [place] [address] 99805- 5975 Nov, Sinus drainage J34.89 ; Hot flashes R23.2 ; Anxiety F41.9 and Diabetes type 2, controlled E11.9 [facility] [id number] [place] [address] 46602- 3778 Nov, Nail, ingrown L60.0 [facility] [id number] [place] [address] 11480- 1452 Oct, Anxiety F41.9 and Mood disorder F39 [facility] [id number] [place] [address] 77581- 0959 Oct, Nail, ingrown L60.0 and Anxiety F41.9 [facility] [id number] [place] [address] 77423- 7324 Oct, Lupus erythematosus L93.0 [facility] [id number] [place] [address] 25306- 7073 September, [facility] [id number] [place] [address] 57022- 8478 September, [facility] [id number] [place] [address] 16295- 4881 September, Lupus erythematosus L93.0 [facility] [id number] [place] [address] 08045- 4513 Aug, [facility] [id number] [place] [address] 77735- 2200 Aug, Mood disorder F39 and Anxiety F41.9 [facility] [address] [place] [address] 50149- 9564 Aug, Lupus erythematosus L93.0 ; Diabetes type 2, controlled E11.9 and Localized edema R60.0 [facility] [id number] [place] [address] 70625- 9472 Aug, [facility] [id number] [place] [address] 85114- 5752 Jul, Anxiety F41.9 and Mood disorder F39 [facility] [id number] [place] [address] 36226- 6917 Jul, Diabetes type 2, controlled E11.9 [facility] [id number] [place] [address] 16460- 3449 Jun, Anxiety F41.9 [facility] [id number] [place] [address] 48460- 2001 May, [facility] [id number] [place] [address] 06223- 1615 May, [facility] [id number] [place] [address] 46616- 0988 May, Nausea R11.0 ; Other chronic pain G89.29 and Pain in right knee M25.561 [facility] [id number] [place] [address] 59979- 9935 May, [facility] [id number] [place] [address] 89006- 9406 Apr, Tear of medial meniscus of right knee, current, unspecified tear type, subsequent encounter S83.241D and Tear of lateral meniscus of right knee, current, unspecified tear type, subsequent encounter S83.281D [facility] [address] [place] [address] 59156- 1187 Apr, Anxiety F41.9 and Mood disorder F39 [place] [address] [place] [address] 47103- 9676 09 Apr, 2016 Anxiety F41.9 [facility] [id number] [place] [address] 81293- 3356 05 Apr, 2016 [facility] [id number] [place] [address] 18560- 6659 Mar, [facility] [id number] [place] [address] 64768- 0861 Mar, Lupus erythematosus L93.0 and Diabetes type 2, controlled E11.9 [facility] [id number] [place] [address] 73585- 3026 Mar, Mood disorder F39 [facility] [id number] [place] [address] 61754- 3426 Mar, Tear of lateral meniscus of right knee, current, unspecified tear type, initial encounter S83.281A and Osteoarthritis of right knee, unspecified osteoarthritis type M17.9 [facility] [id number] [place] [address] 71921- 4916 Mar, [facility] [id number] [place] [address] 75654- 1921 Feb, Mood disorder F39 [facility] [id number] [place] [address] 53838- 6514 Feb, Rash R21 [facility] [id number] [place] [address] 24954- 7424 Feb, [facility] [address] [place] [address] 20285- 8318 Jan, Other chronic pain G89.29 and Muscle spasm M62.838 [facility] [id number] [place] [address] 50259- 6895 Jan, Mood disorder F39 [facility] [id number] [place] [address] 62780- 8242 02 Sep, 2016 Pain in right knee M25.561 ; Other chronic pain G89.29 and Muscle spasm M62.838 [place] [id number] [place] [address] 29696- 5240 Dec, [place] [id number] [place] [address] 97945- 4368 Dec, [place] [id number] [place] [address] 17723- 2062 Nov, [place] [id number] [place] [address] 30164- 6309 Nov, Mood disorder F39 [place] [address] 27876- 3358 Nov, Diabetes type 2, controlled E11.9 ; Bronchitis J40 ; Edema, unspecified type R60.9 ; Weight gain R63.5 and Right knee pain, unspecified chronicity M25.561 [place] [id number] [place] [address] 07446- 1110 Oct, Mood disorder F39 [place] [id number] [place] [address] 05882- 3691 Oct, Lupus erythematosus L93.0 and Bilateral edema of lower extremity R60.0 [place] [id number] [place] [address] 71408- 8984 Oct, Mood disorder F39 and Anxiety F41.9 [place] [id number] [place] [address] 34751- 1332 September, Mood disorder F39 ; Anxiety F41.9 and Anger reaction R45.4 [place] [id number] [place] [address] 89462- 7242 September, Diabetes type 2, controlled E11.9 ; Edema, unspecified type R60.9 and Fatigue, unspecified type R53.83 [place] [id number] [place] [address] 59903- 0865 Aug, Mood disorder F39 and Generalized anxiety disorder F41.1 [facility] [address], [place] [address]- 7263 21 Aug, 2015 Diabetes type 2, controlled E11.9 ; Sinusitis J32.9 and Mood disorder F39 [facility] [address] [place] [address] 17013 2546 15 Aug, 2015 Lupus erythematosus L93.0 [facility] [id number] [place] [address] 85493 2546 14 Aug, 2015 [facility] [id number] [place] [address] 75746- 0519 07 Aug, 2015 [facility] [id number] [place] [address] 21087- 6556 Jul, Diabetes type 2, controlled E11.9 [facility] [id number] [place] [address] 56843- 9705 Jul, Mood disorder F39 and Depression F32.9 [facility] [id number] [place] [address] 07490- 7449 Jul, Lupus erythematosus L93.0 and Diabetes type 2, controlled E11.9 [facility] [id number] [place] [address] 95583- 8364 Jul, Mood disorder F39 and Anxiety F41.9 [facility] [address] [place] [address] 27639- 5348 Jul, [facility] [id number] [place] [address] 12570 254 Jul, [facility] [id number] [place] [address] 88392- 0353 Jun, Mood disorder F39 and Anxiety F41.9 [facility] [id number] [place] [address] 39096- 1780 Jun, Mood disorder F39 [facility] [id number] [place] [address] 65479- 3207 18 Jun, 2015 [facility] [address], [place] [address]- 4090 Jun, [facility] [address] [place] [address] 82640- 2861 Jun, Mood disorder F39 [facility] [id number] [place] [address] 34384- 4670 Jun, [facility] [id number] [place] [address] 09796- 2292 May, [facility] [id number] [place] [address] 80546- 2515 May, [facility] [id number] [place] [address] 02674- 4337 May, [facility] [id number] [place] [address] 95299- 8553 May, [facility] [id number] [place] [address] 10279- 2141 May, Anxiety F41.9 ; Dermatomyositis M33.90 and Diabetes type 2, controlled E11.9 [facility] [address] [place] [address] 94281 -3901 May, Sinusitis J32.9 and Cough R05 [facility] [address] [place] [address] 59746- 9607 May, Mood disorder F39 [facility] [address] [place] [address] 50020- 6888 May, Adjustment disorder with mixed anxiety and depressed mood F43.23 [facility] [id number] [place] [address] 40711- 9075 Apr, [facility] [address] [place] [address] 34930- 2262 Apr, [facility] [id number] [place] [address] 02980- 9801 Apr, Generalized anxiety disorder F41.1 and Mood disorder F39 [facility] [id number] [place] [address] 13012- 0432 Mar, [facility] [id number] [place] [address] 45354- 3513 Mar, [facility] [id number] [place] [address] 26957- 0618 Mar, [facility] [id number] [place] [address] 44449- 6468 Mar, Mood disorder F39 [facility] [id number] [place] [address] 33357- 9327 Feb, [facility] [id number] [place] [address] 56774- 1405 Feb, Diabetes E11.9 and Bronchitis J40 [facility] [id number] [place] [address] 47579- 1855 Feb, [facility] [id number] [place] [address] 88095- 5301 Feb, [facility] [id number] [place] [address] 65123- 7336 Feb, Major depression, recurrent, full remission F33.42 and KELLY ( generalized anxiety disorder) F41.1 [facility] [id number] [place] [address] 79739- 7758 Feb, [facility] [id number] [place] [address] 60944- 2926 Feb, Single major depressive episode, in partial or unspecified remission F32.5 [facility] [id number] [place] [address] 32087- 1098 Jan, Fatigue 780.79 [facility] [id number] [place] [address] 67066- 6175 Jan, [address] [address]- 8164 Jan, Diabetes with other specified manifestations, type II or unspecified type, not stated as uncontrolled 250.80 [place] [id number] [place] [address] 00034385- 1685 Jan, [place] [id number] [place] [address] 67374- 8283 Dec, Hot flashes 627.2 ; Memory loss 780.93 and Joint pain 719.40 [place] [id number] [place] [address] 33933- 7018 Dec, Major depression, recurrent 296.30 ; Generalized anxiety disorder 300.02 ; Adjustment disorder with depressed mood 309.0 and No condition on [place] II V71.09 [place] [id number] [place] [address] 89987- 2783 Dec, [place] [id number] [place] [address] 87162- 1574 Nov, Cognitive and neurobehavioral dysfunction 294.9 ; Major depressive disorder, recurrent episode, moderate degree 296.32 and Anxiety state , unspecified 300.00 [address] [id number] [place] [address] 62389- 3261 Nov, [facility] [id number] [place] [address] 29581- 6253 Nov, Bronchitis 490 and Diabetes with other specified manifestations, type II or unspecified type, not stated as uncontrolled 250.[id number] [place] [address] [id number]- [id number] Nov, Major depressive disorder, recurrent episode, moderate 296.32 and Anxiety disorder, unspecified 300.[id number] [place] [address] 82676- 2552 Nov, Anxiety, generalized 300.02 ; Intermittent explosive disorder 312.34 ; No condition on [place] II V71.09 and No condition on axis III V71.[address] [id number] [address] Oct, Diabetes with other specified manifestations, type II or unspecified type, not stated as uncontrolled 250.80 ; Urinary tract infection, site not specified 599.0 and Bronchitis [id number] [address] 17 Oct, 2014 Intermittent explosive disorder 312.34 ; Bipolar 1 disorder , depressed, moderate 296.52 ; Major depression, chronic 296.20 ; No condition on [place] II V71.09 and No condition on axis III V71.09 [id number] [place] [address] 87216- 0821 Oct, Major depressive disorder, recurrent episode, moderate 296.32 ; Anxiety state 300.00 ; Cognitive decline 294.9 and No condition on [place] II V71.09 [address] [id number] [place] [address] 73732- 8714 Oct, [place] [id number] [place] [address] 06473- 8828 Oct, Major depressive disorder, recurrent episode, moderate 296.32 ; Anxiety disorder, unspecified 300.00 and Persistent disorder of initiating or maintaining sleep 307.42 [id number] [address] September, Diabetes with other specified manifestations, type II or unspecified type, not stated as uncontrolled 250.80 ; Memory loss 780.93 and Cognitive complaints 799.59 [id number] [place] [address] 99229- 9385 September, No condition on [place] II V71.09 ; Major depression, recurrent 296.30 and Persistent mood [affective] disorder, unspecified 296.[id number] [place] [id number]- 7110 Aug, [id number] [address] Aug, [id number] [address] 13 Aug, 2014 [facility] [place] [facility] [address] [id number] [place] [address] 2461 Jul, 2014 [facility] [place] [facility] [address] [facility] [id number] [place] [address]- 5904 Jul, 2014 [facility] [place] [facility] [address] [facility] [id number] [place] [address]- 6088 Jul, 2014 [facility] [place] [facility] [address] [facility] [id number] [place] [address]- 5048 Jul, [facility] [place] [facility] [address] [facility] [id number] [place] [address]- 9361 Jul, [facility] [place] [facility] [address] [facility] [id number] [place] [address]- 1521 Jun, 2014 [facility] [place] [facility] [address] [facility] [id number] [place] [address]- 9476 Jun, 2014 [facility] [place] [facility] [address] [facility] [id number] [place] [address]- 3571 Jun, 2014 [facility] [place] [facility] [address] [facility] [id number] [place] [address]- 9822 Jun, 2014 [facility] [place] [facility] [address] [id number] [address]- [address] Jun, 2014 [facility] [place] [facility] [address] [facility] [id number] [place] [address]- 9350 Jun, 2014 [facility] [place] [facility] [address] [facility] [id number] [place] [address]- 1995 Jun, 2014 [facility] [place] [facility] [address] [facility] [id number] [place] [address]- 9515 Jun, 2014 [facility] [place] [facility] [address] [facility] [id number] [address] Jun, 2014 [facility] [place] [facility] [id number] [address] Jun, 2014 [facility] [place] [facility] [address] [id number] [place] [address]- 8269 Jun, 2014 [facility] [place] [facility] [address] [id number] [place] [address] Jun, 2014 [facility] [place] [facility] [address] [id number] [place] [address]- 1934 Jun, [facility] [place] [facility] [address] [id number] [place] [address]- 2247 May, [facility] [place] [facility] [address] [id number] [place] [address]- 6552 May, [facility] [place] [facility] [address] [id number] [place] [address]- 1137 Apr, [facility] [address] [facility] [id number] [place] [address]- 9401 Apr, [facility] [place] [facility] [address] [id number] [place] [address]- 5649 Apr, [facility] [place] [facility] [address] [id number] [place] [address]- 1523 Apr, [facility] [place] [facility] [address] [facility] [id number] [place] [address]- 0645 Apr, [facility] [place] [facility] [address] [id number] [place] [address]- 3869 Apr, [facility] [place] [facility] [address] [id number] [place] [address]- 4498 Apr, [facility] [place] [facility] [address] [id number] [place] [address]- 6105 Apr, [facility] [place] [facility] [address] [facility] [id number] [place] [address]- 9245 Apr, [facility] [place] [facility] [address] [facility] [id number] [place] [address]- 5409 Apr, [facility] [place] [facility] [address] [id number] [place] [address]- 7973 Apr, [facility] [place] [facility] [address] [id number] [place] [address]- 8628 Apr, [facility] [place] [facility] [address] [id number] [place] [address]- 8366 Apr, [facility] [place] [facility] [address] [id number] [place] [address]- 5861 Apr, [facility] [place] [facility] [address] [id number] [place] [address]- 3077 Apr, [facility] [place] [facility] [address] [id number] [place] [address]- 9690 Apr, [facility] [place] [facility] [address] [id number] [place] [address]- 0403 Apr, [facility] [place] [facility] [address] [id number] [place] [address]- 1346 Apr, [facility] [place] [facility] [address] [id number] [place] [address]- 0307 Apr, [facility] [place] [facility] [address] [id number] [place] [address]- 2178 Apr, [facility] [place] [facility] [address] [id number] [place] [address]- 1345 Mar, [facility] [place] [facility] [address] [id number] [place] [address]- 4997 Mar, [facility] [place] [facility] [address] [id number] [place] [address]- 5881 Mar, [facility] [place] [facility] [address] [id number] [place] [address]- 1165 Mar, [facility] [place] [facility] [address] [id number] [place] [address]- 1348 Mar, [facility] [place] [facility] [address] [id number] [place] [address]- 6639 Mar, [facility] [place] [facility] [address] [id number] [place] [address]- 6746 Mar, [facility] [place] [facility] [address] [id number] [place] [address]- 8363 Mar, [facility] [place] [facility] [address] [id number] [place] [address]- 5907 Mar, [facility] [place] [facility] [address] [id number] [place] [address]- 5324 Mar, [facility] [place] [facility] [address] [id number] [place] [address]- 6370 Mar, [facility] [place] [facility] [address] [id number] [place] [address]- 2872 Mar, [facility] [place] [facility] [address] [id number] [place] [address]- 4939 Mar, [facility] [place] [facility] [address] [id number] [address]- 0[address] Feb, [facility] [place] [facility] [address] [id number] [place] [address]- 8744 Feb, [facility] [place] [facility] [address] [id number] [place] [address]- 0272 Feb, [facility] [place] [facility] [address] [id number] [address]- 9471 Feb, [facility] [place] [facility] [address] [id number], [place] [address]- 7036 Feb, [facility] [place] [facility] [address] [id number] [place] [address]- 3069 Feb, [facility] [place] [facility] [address] [id number], [place] [address]- 9306 Feb, [facility] [place] [facility] [address] [id number], [place] [address]- 0256 Feb, [facility] [place] [facility] [address] [id number] [place] [address]- 1032 Feb, [facility] [place] [facility] [address] [id number] [place] [address]- 6887 Feb, [facility] [place] [facility] [address] [id number] [place] [address]- 9456 Feb, [facility] [place] [facility] [address] [id number] [place] [address]- 3480 Feb, [facility] [place] [facility] [address] [id number] [place] [address]- 3233 10 Feb, 2014 [facility] [place] [facility] [address] [id number] [place] [address]- 9063 Feb, [facility] [place] [facility] [address] [id number] [place] [address]- 8835 Feb, [facility] [place] [facility] [address] [id number] [place] [address]- 7354 10 Jan, 2013 [facility] [place] [facility] [address] [id number] [place] [address]- 5745 08 Jan, 2013 [facility] [place] [facility] [address] [id number] [place] [address]- 0008 08 Jan, 2013 [facility] [place] [facility] [address] [facility] [id number] [place] [address]- 2497 08 Jan, 2013 [facility] [place] [facility] [address] [id number] [place] [address]- 0426 08 Jan, 2013 [facility] [place] [facility] [address] [id number] [place] [address]- 5066 Dec, [facility] [place] [facility] [address] [id number] [place] [address]- 7507 Dec, [facility] [place] [facility] [address] [id number] [place] [address]- 1801 Dec, [facility] [place] [facility] [address] [id number] [place] [address]- 2408 Dec, [facility] [place] [facility] [address] [id number] [place] [address]- 3995 Nov, [facility] [place] [facility] [address] [id number] [place] [address]- 7478 Nov, [facility] [place] [facility] [address] [id number] [place] [address]- 2687 Nov, [facility] [place] [facility] [address] [id number] [place] [address]- 9322 Nov, [facility] [place] [facility] [address] [id number] [place] [address]- 5310 Nov, [facility] [place] [facility] [address] [id number] [place] [address]- 6467 Nov, [facility] [place] [facility] [address] [id number] [place] [address]- 5940 Nov, [facility] [place] [facility] [address] [id number] [place] [address]- 1045 Nov, [facility] [place] [facility] [address] [id number] [place] [address]- 7975 Nov, [facility] [place] [facility] [address] [id number] [place] [address]- 1695 Nov, [facility] [place] [facility] [address] [id number] [place] [address]- 9509 Oct, [facility] [place] [facility] [address] [id number] [place] [address]- 3032 Oct, [facility] [place] [facility] [address] [id number] [place] [address]- 7014 September, [facility] [place] [facility] [address] [id number] [place] [address]- 1149 September, [facility] [place] [facility] [address] [id number] [place] [address]- 2600 September, [facility] [place] [facility] [address] [id number] [place] [address]- 6762 September, [facility] [place] [facility] [address] [id number] [place] [address]321 16 Aug, 2013 [facility] [place] [facility] [address] [id number] [place] [address]- 8946 14 Aug, 2013 [facility] [place] [facility] [address] [id number] [place] [address]- 5218 Aug, [facility] [place] [facility] [address] [id number] [place] [address]- 0757 24 Jul, 2013 [facility] [place] [facility] [address] [id number] [place] [address]- 4985 24 Jul, 2013 [facility] [place] [facility] [address] [id number] [place] [address]- 4568 Jul, [facility] [place] [facility] [address] [id number] [place] [address]- 6778 Jul, [facility] [place] [facility] [address] [id number] [place] [address]- 3526 May, [facility] [place] [facility] [address] [id number] [place] [address]- 2565 May, [facility] [place] [facility] [address] [id number] [place] [address]- 5816 May, [facility] [place] [facility] [address] [id number] [address]- 1256 15 Mar, 2013 [facility] [place] [facility] [address] [id number] [place] [address]- 0320 15 Mar, 2013 [facility] [place] [facility] [address] [id number] [place] [address]- 5495 13 Mar, 2013 [facility] [place] [facility] [address] [id number] [place] [address]- 8861 13 Mar, 2013 [facility] [place] [facility] [address] [id number] [place] [address]- 6981 16 Feb, 2013 [facility] [place] [facility] [address] [id number] [place] [address]- 2546 Feb, [facility] [address] [id number] [place] [address]- 8598 Feb, [facility] [address] [id number] [place] [address]- 2546 Jan, [facility] [address] [id number] [place] [address]- 3316 Jan, [facility] [address] [id number] [place] [address]- 2546 Jan, [facility] [address] [id number] [place] [address]- 5581 Dec, [facility] [address] [id number] [place] [address]- 2902 Dec, [facility] [address] [id number] [place] [address]- 8742 Dec, [facility] [address] [id number] [place] [address]- 2666 Dec, [facility] [address] [id number] [place] [address]- 0381 Nov, [facility] [address] [id number] [place] [address]- 9298 Oct, [facility] [address] [id number] [place] [address]- 2544 Oct, [facility] [address] [id number] [place] [address]- 0813 September, [facility] [place] [facility] [address] [id number] [place] [address]- 7639 September, [facility] [address] [id number] [place] [address]- 2546 September, [facility] [address] [id number] [place] [address]- 0275 Aug, [facility] [address] [id number] [place] [address]- 7479 18 Aug, 2012 [facility] [place] [facility] [address] [id number] [place] [address]- 0911 17 Aug, 2012 [facility] [address] [id number] [place] [address]- 1587 09 Aug, 2012 [facility] [place] [facility] [address] [id number] [place] [address]- 9905 26 Jul, 2012 [facility] [address] [id number] [place] [address]- 2299 25 Jul, 2012 [facility] [place] [facility] [address] [id number] [place] [address]- 4091 21 Jul, 2012 [facility] [place] [facility] [address] [id number] [place] [address]- 6637 15 Jul, 2012 [facility] [place] [facility] [address] [id number] [place] [address]- 2783 14 Jul, 2012 [facility] [place] [facility] [address] [id number] [place] [address]- 9721 Jul, [facility] [place] [facility] [address] [id number] [place] [address]- 0186 Jul, [facility] [place] [facility] [address] [id number] [place] [address]- 3131 Jun, [facility] [place] [facility] [address] [id number] [place] [address]- 2054 Jun, [facility] [place] [facility] [address] [id number] [place] 9344 Jun, [facility] [place] [facility] [address] [id number] [place] 2521 Jun, [facility] [place] [facility] [address] [id number] [place] [address]- 0763 May, [facility] [place] [facility] [address] [id number] [place] [address]- 8394 30 May, 2012 [facility] [place] [facility] [address] [id number] [place] [address]- 5095 May, [facility] [place] [facility] [address] [id number] [place] [address]- 9948 May, [facility] [address] [id number] [place] [address]- 0371 May, [facility] [place] [facility] [address] [id number] [place] [address]- 5847 Apr, [facility] [place] [facility] [address] [id number] [place] [address]- 3468 Apr, [facility] [place] [facility] [address] [id number] [place] [address]- 5478 Mar, [facility] [place] [facility] [address] [id number] [place] [address]- 6798 Mar, [facility] [place] [facility] [address] [id number] [place] [address]- 2040 Mar, [facility] [place] [facility] [address] [id number] [place] [address]- 8688 Mar, [facility] [place] [facility] [address] [facility] [id number] [place] [address]- 7010 Mar, [facility] [place] [facility] [address] [id number] [place] [address]- 5229 Mar, [facility] [place] [facility] [address] [id number] [place] [address]- 8464 Mar, [facility] [place] [facility] [address] [id number] [place] [address]- 8056 Mar, [facility] [place] [facility] [address] [id number] [place] [address]- 1993 Mar, [facility] [place] [facility] [address] [id number] [place] [address]- 0059 Mar, [facility] [place] [facility] [address] [id number] [place] [address]- 6093 Feb, [facility] [place] [facility] [address] [id number] [place] [address]- 7553 Feb, [facility] [place] [facility] [address] [id number] [place] [address]- 9642 Feb, [facility] [place] [facility] [address] [id number] [place] [address]- 2594 Feb, [facility] [place] [facility] [address] [id number] [place] [address]- 7453 Feb, [facility] [place] [facility] [address] [id number] [place] [address]- 1601 Feb, [facility] [place] [facility] [address] [id number] [place] [address]- 6183 Feb, [facility] [place] [facility] [address] [id number] [place] [address]- 4720 Jan, [facility] [place] [facility] [address] [id number] [place] [address]- 4328 Jan, [facility] [place] [facility] [address] [id number] [place] [address]- 1408 Dec, [facility] [place] [facility] [address] [id number] [place] [address]- 0442 Dec, [facility] [place] [facility] [address] [id number] [place] [address]- 7328 Dec, [facility] [place] [facility] [address] [id number] [place] [address]- 1534 Dec, [facility] [place] [facility] [address] [id number] [place] [address]- 7022 Dec, [facility] [place] [facility] [address] [id number] [place] [address]- 9610 15 Dec, 2011 [facility] [place] [facility] [address] [id number] [place] [address]- 2546 Nov, [facility] [place] [facility] [address] [id number] [place] [address]- 9772 Nov, [facility] [place] [facility] [address] [id number] [place] [address]- 4546 Nov, [facility] [place] [facility] [address] [id number] [place] [address]- 8567 Nov, [facility] [place] [facility] [address] [id number] [place] [address]- 5068 September, [facility] [place] [facility] [address] [id number] [place] [address]- 7646 September, [facility] [place] [facility] [address] [id number] [place] 0988 September, [facility] [place] [facility] [address] [id number] [place] [address]- 2512 Jul, [facility] [place] [facility] [address] [id number] [place] [address]- 5374 Jun, [facility] [place] [facility] [address] [id number] [place] [address]- 9212 Jun, [facility] [place] [facility] [address] [id number] [place] [address]- 9781 Jun, [facility] [place] [facility] [address] [id number] [place] [address]- 1396 Apr, [facility] [place] [facility] [address] [id number] [place] [address]- 8880 Mar, [facility] [place] [facility] [address] [id number] [place] [address]- 3957 Mar, [facility] [place] [facility] [address] [id number] [place] [address]- 1099 Feb, [facility] [place] [facility] [address] [id number] [place] [address]- 9210 Feb, [facility] [place] [facility] [address] [facility] [id number] [place] [address] Feb, 2011 [facility] [address] [facility] [id number] [place] [address] Jul, [facility] [address] [facility] [id number] [place] [address] Feb, IMMUNIZATIONS No Known Immunizations SOCIAL HISTORY Never Assessed REASON FOR VISIT Controlled Med Refill 11/29/17 PLAN OF CARE VITAL SIGNS MEDICATIONS Medication Instructions Dosage Frequency Start Date End Date Duration Status Vader 7.5-325 MG Orally every 6 hrs 1 tablet as needed 6h Nov, Active RESULTS No Results PROCEDURES No Known [...]
--- OUTSIDE RECORDS SUMMARY | 2018-02-02 23:38 | XMS REPORT ---
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 Operator Name Role Phone MACY TAMAYO Unavailable PROBLEMS Type Condition ICD9-CM Code HMD79-AT Code Onset Dates Condition Status SNOMED Code Problem Lumbago with sciatica, left side M54.42 Active 748547938 Problem Tachycardia with heart rate 121-140 beats per minute R00.0 Active 9491022 Problem Controlled type 2 diabetes mellitus without complication, without long -term current use of insulin E11.9 Active 356447079 Problem Gait disturbance R26.9 Active 84211342 Problem Lumbago with sciatica, right side M54.41 Active 904418982 Problem Enlarged thyroid gland E04.9 Active 0760450 Problem Body mass index (BMI) of 45.0-49.9 in adult Z68.42 Active 012180457 Problem Morbid (severe) obesity due to excess calories E66.01 Active 061468558 Problem Dermatomyositis M33.90 Active 395451317 Problem Mood disorder F39 Active 79021156 Problem Diabetes type 2, controlled E11.9 Active 14171058 Problem Menopause Z78.0 Active 649333508 Problem Allergic rhinitis due to pollen J30.1 Active 92510595 Problem Other chronic pain G89.29 Active 35728574 Problem Arthritis M19.90 Active 6337342 Problem Osteoarthritis of right knee, unspecified osteoarthritis type M17.9 Active 110185267 Problem Plantar warts B07.0 Active 14761807 Problem Anxiety F41.9 Active 33268202 Problem Plantar wart of both feet B07.0 Active [id number] ALLERGIES No Information ENCOUNTERS Encounter Location Date Diagnosis [facility] [address] [facility] [id number] [address] Jan, [facility] [address] [facility] [id number], [place] [address] Jan, [facility] [id number] [place] [address] 50434- 7166 14 Jan, 2018 [facility] [address] 26971- 3797 05 Jan, 2018 [facility] [id number] [place] [address] 96582- 7222 Dec, [facility] [address] 83098- 3807 Dec, Acute right ankle pain M25.571 [facility] [address] 33439- 5860 Dec, Other chronic pain G89.29 ; Diabetes type 2, controlled E11.9 ; Gait disturbance R26.9 ; Weakness R53.1 and Muscle spasm M62.838 [facility] [address] 50765- 3489 Dec, Acute non-recurrent maxillary sinusitis J01.00 [facility] [id number] [place] [address] 14373- 6893 Dec, [facility] [id number] [place] [address] 92884- 1648 Dec, [facility] [id number] [place] [address] 04900- 6678 Dec, Acute non-recurrent maxillary sinusitis J01.00 [facility] [id number] [place] [address] 38053- 4559 Dec, Lumbago with sciatica, right side M54.41 and Lupus erythematosus L93.0 [facility] [id number] [place] [address] 92861- 4083 Dec, Mood disorder F39 [facility] [id number] [place] [address] 14363- 1908 13 Dec, 2017 Mood disorder F39 [facility] [id number] [place] [address] 77107- 3516 Dec, [facility] [address], [place] [address] 6138 Dec, Acute right ankle pain M25.571 [facility] [id number] [place] [address] 38446- 2046 Nov, Lumbar radiculopathy M54.16 [facility] [id number] [place] [address] 42634- 7865 Nov, [facility] [id number] [place] [address] 18193- 4549 Nov, Mood disorder F39 [facility] [id number] [place] [address] 05691- 8229 Nov, Lumbago with sciatica, right side M54.41 and Other chronic pain G89.29 [facility] [id number] [place] [address] 36774- 0169 Nov, Acute right ankle pain M25.571 [facility] [address] [place] [address] 00923- 8599 Nov, [facility] [id number] [place] [address] 06026- 5561 Oct, [facility] [address] [address] 3056 Oct, Plantar wart of both feet B07.0 [facility] [address] [address]- 2926 Oct, [facility] [id number] [place] [address] 11270- 9324 Oct, Acute right ankle pain M25.571 and Plantar wart of both feet B07.0 [facility] [address], [place] [address] 4184 September, Other chronic pain G89.29 [facility] [id number] [place] [address] 05661- 0479 September, Other chronic pain G89.29 [place] [address] 228512- 0097 September, Other chronic pain G89.29 [place] [address] 33129- 1008 Aug, Mood disorder F39 [place] [address] 12438- 3066 Aug, Other chronic pain G89.29 ; Controlled type 2 diabetes mellitus without complication, without long-term current use of insulin E11.9 ; Low back pain M54.5 and Tinea corporis B35.4 [place] [address] 15214- 3046 Aug, Mood disorder F39 and Anxiety F41.9 [place] [address] 31280- 2481 Aug, Mood disorder F39 and Anxiety F41.9 [place] [address] 47147- 0448 Jul, [facility] [address] 77499 -0390 Jul, Scabies B86 and BMI 45.0-49.9, adult Z68.42 [place] [address] 52990- 5795 Jul, [place] [address] 27268- 4508 Jul, Mood disorder F39 and Anxiety F41.9 [place] [address] 54638- 0047 Jul, [facility] [address] 32706 -9034 Jun, Bronchitis J40 ; Dark urine R82.99 and BMI 45.0-49.9, adult Z68.42 [place] [id number] [place] [address] 98710- 4690 14 Jun, 2017 Acute pain of right shoulder M25.511 and Acute pain of right knee M25.561 [place] [id number] [place] [address] 01308- 3819 May, BMI 40.0-44.9, adult Z68.41 ; Controlled type 2 diabetes mellitus without complication, without long-term current use of insulin E11.9 ; Muscle cramping R25.2 ; Hot flashes R23.2 ; Mood disorder F39 ; Anxiety F41.9 and Morbid (severe) obesity due to excess calories E66.[address] 68896- 7342 May, BMI 40.0-44.9, adult Z68.41 ; Controlled type 2 diabetes mellitus without complication, without long-term current use of insulin E11.9 ; Muscle cramping R25.2 and Hot flashes R23.2 [place] [id number] [place] [address] 10154- 0199 May, Tachycardia with heart rate 121-140 beats per minute R00.0 ; Morbid (severe) obesity due to excess calories E66.01 ; Diabetes type 2, controlled E11.9 and Enlarged thyroid gland E04.9 [place] [id number] [place] [address] 56359- 8794 May, Encounter for well woman exam with [...] Dysuria R30.0 and Screening breast examination Z12.31 [place] [id number] [place] [address] 78597- 9947 Apr, Mood disorder F39 ; Other chronic pain G89.29 and Anxiety F41.9 [facility] [address] 05365- 4828 Apr, Lumbago with sciatica, left side M54.42 and Other chronic pain G89.29 [facility] [address] 20408- 0511 Apr, Lupus erythematosus L93.0 [facility] [id number] [place] [address] 97480- 0586 Mar, Plantar wart of both feet B07.0 [facility] [address] 08024- 4295 Mar, Lupus erythematosus L93.0 and Sinus drainage J34.89 [facility] [address] 94430- 6779 Mar, Mood disorder F39 ; Other chronic pain G89.29 and Anxiety F41.9 [facility] [id number] [place] [address] 52745- 9353 Mar, Mood disorder F39 ; Arthritis M19.90 and Plantar warts B07.0 [facility] [id number] [place] [address] 42720- 2598 Feb, Lupus erythematosus L93.0 [facility] [id number] [place] [address] 80617- 9728 Feb, Other chronic pain G89.29 [facility] [id number] [place] [address] 85507- 9903 Feb, Mood disorder F39 and Anxiety F41.9 [facility] [id number] [place] [address] 46471- 5873 Jan, [facility] [id number] [place] [address] 35486- 2284 Jan, Mood disorder F39 [facility] [id number] [place] [address] 45301- 8538 Dec, Nail, ingrown L60.0 [facility] [id number] [place] [address] 57094- 3918 Dec, Nail, ingrown L60.0 [facility] [id number] [place] [address] 49428- 0695 Nov, Mood disorder F39 and Anxiety F41.9 [facility] [id number] [place] [address] 86147- 6762 Nov, Sinus drainage J34.89 ; Hot flashes R23.2 ; Anxiety F41.9 and Diabetes type 2, controlled E11.9 [facility] [id number] [place] [address] 63484- 8513 Nov, Nail, ingrown L60.0 [facility] [id number] [place] [address] 25224- 8545 Oct, Anxiety F41.9 and Mood disorder F39 [facility] [id number] [place] [address] 85601- 3876 Oct, Nail, ingrown L60.0 and Anxiety F41.9 [facility] [id number] [place] [address] 53367- 1557 Oct, Lupus erythematosus L93.0 [facility] [id number] [place] [address] 82468- 0436 September, [facility] [id number] [place] [address] 55195- 3701 September, [facility] [id number] [place] [address] 48673- 4637 September, Lupus erythematosus L93.0 [facility] [id number] [place] [address] 90764- 2835 Aug, [facility] [id number] [place] [address] 04970- 3014 Aug, Mood disorder F39 and Anxiety F41.9 [facility] [address] [place] [address] 92073- 7962 Aug, Lupus erythematosus L93.0 ; Diabetes type 2, controlled E11.9 and Localized edema R60.0 [facility] [id number] [place] [address] 74714- 1970 Aug, [facility] [id number] [place] [address] 19211- 4832 Jul, Anxiety F41.9 and Mood disorder F39 [facility] [id number] [place] [address] 61579- 8293 Jul, Diabetes type 2, controlled E11.9 [facility] [id number] [place] [address] 61843- 1399 Jun, Anxiety F41.9 [facility] [id number] [place] [address] 30937- 7993 May, [facility] [id number] [place] [address] 55788- 2448 May, [facility] [id number] [place] [address] 20020- 2722 May, Nausea R11.0 ; Other chronic pain G89.29 and Pain in right knee M25.561 [facility] [id number] [place] [address] 28677- 6526 May, [facility] [id number] [place] [address] 05003- 0152 Apr, Tear of medial meniscus of right knee, current, unspecified tear type, subsequent encounter S83.241D and Tear of lateral meniscus of right knee, current, unspecified tear type, subsequent encounter S83.281D [facility] [address] [place] [address] 81542- 9733 Apr, Anxiety F41.9 and Mood disorder F39 [place] [address] [place] [address] 25522- 7311 09 Apr, 2016 Anxiety F41.9 [facility] [id number] [place] [address] 89718- 3266 05 Apr, 2016 [facility] [id number] [place] [address] 48201- 0635 Mar, [facility] [id number] [place] [address] 38385- 7675 Mar, Lupus erythematosus L93.0 and Diabetes type 2, controlled E11.9 [facility] [id number] [place] [address] 56719- 1870 Mar, Mood disorder F39 [facility] [id number] [place] [address] 63603- 3023 Mar, Tear of lateral meniscus of right knee, current, unspecified tear type, initial encounter S83.281A and Osteoarthritis of right knee, unspecified osteoarthritis type M17.9 [facility] [id number] [place] [address] 26240- 8186 Mar, [facility] [id number] [place] [address] 01600- 1611 Feb, Mood disorder F39 [facility] [id number] [place] [address] 07425- 2423 Feb, Rash R21 [facility] [id number] [place] [address] 91061- 6932 Feb, [facility] [address] [place] [address] 89275- 0186 Jan, Other chronic pain G89.29 and Muscle spasm M62.838 [facility] [id number] [place] [address] 28033- 9010 Jan, Mood disorder F39 [facility] [id number] [place] [address] 61849- 1384 02 Sep, 2016 Pain in right knee M25.561 ; Other chronic pain G89.29 and Muscle spasm M62.838 [facility] [id number] [place] [address] 40331- 1193 Dec, [place] [id number] [place] [address] 45029- 2621 Dec, [place] [id number] [place] [address] 50046- 2373 Nov, [place] [id number] [place] [address] 34886- 7474 Nov, Mood disorder F39 [place] [address] 02473- 2687 Nov, Diabetes type 2, controlled E11.9 ; Bronchitis J40 ; Edema, unspecified type R60.9 ; Weight gain R63.5 and Right knee pain, unspecified chronicity M25.561 [facility] [place] [id number] [place] [address] 71697- 5780 Oct, Mood disorder F39 [place] [id number] [place] [address] 20341- 0004 Oct, Lupus erythematosus L93.0 and Bilateral edema of lower extremity R60.0 [place] [id number] [place] [address] 14110- 6466 Oct, Mood disorder F39 and Anxiety F41.9 [facility] [place] [id number] [place] [address] 28559- 5362 September, Mood disorder F39 ; Anxiety F41.9 and Anger reaction R45.4 [place] [id number] [place] [address] 03186- 9975 September, Diabetes type 2, controlled E11.9 ; Edema, unspecified type R60.9 and Fatigue, unspecified type R53.83 [place] [id number] [place] [address] 79916- 8686 Aug, Mood disorder F39 and Generalized anxiety disorder F41.1 [facility] [address], [place] [address]- 3046 21 Aug, 2015 Diabetes type 2, controlled E11.9 ; Sinusitis J32.9 and Mood disorder F39 [facility] [address] [place] [address] 16563 2546 15 Aug, 2015 Lupus erythematosus L93.0 [facility] [id number] [place] [address] 71938 2546 14 Aug, 2015 [facility] [id number] [place] [address] 81562- 1006 07 Aug, 2015 [facility] [id number] [place] [address] 78313- 7146 Jul, Diabetes type 2, controlled E11.9 [facility] [id number] [place] [address] 68709- 4769 Jul, Mood disorder F39 and Depression F32.9 [facility] [id number] [place] [address] 73226- 1369 Jul, Lupus erythematosus L93.0 and Diabetes type 2, controlled E11.9 [facility] [id number] [place] [address] 32580- 7844 Jul, Mood disorder F39 and Anxiety F41.9 [facility] [address] [place] [address] 67833- 0110 Jul, [facility] [id number] [place] [address] 16470 2540 Jul, [facility] [id number] [place] [address] 34645- 4657 Jun, Mood disorder F39 and Anxiety F41.9 [facility] [id number] [place] [address] 87668- 0392 Jun, Mood disorder F39 [facility] [id number] [place] [address] 03383- 6242 18 Jun, 2015 [facility] [address], [place] [address]- 9024 Jun, [facility] [address] [place] [address] 63093- 1044 Jun, Mood disorder F39 [facility] [id number] [place] [address] 57369- 9270 Jun, [facility] [id number] [place] [address] 01068- 2958 May, [facility] [id number] [place] [address] 10249- 5419 May, [facility] [id number] [place] [address] 00745- 7917 May, [facility] [id number] [place] [address] 48489- 0070 May, [facility] [id number] [place] [address] 66293- 6452 May, Anxiety F41.9 ; Dermatomyositis M33.90 and Diabetes type 2, controlled E11.9 [facility] [address] [place] [address] 43786 -9873 May, Sinusitis J32.9 and Cough R05 [facility] [address] [place] [address] 63609- 9951 May, Mood disorder F39 [facility] [address] [place] [address] 65968- 5451 May, Adjustment disorder with mixed anxiety and depressed mood F43.23 [facility] [id number] [place] [address] 67473- 3535 Apr, [facility] [address] [place] [address] 25571- 5569 Apr, [facility] [id number] [place] [address] 62093- 7999 Apr, Generalized anxiety disorder F41.1 and Mood disorder F39 [facility] [id number] [place] [address] 94855- 8538 Mar, [facility] [id number] [place] [address] 40139- 8636 Mar, [facility] [id number] [place] [address] 70428- 8527 Mar, [facility] [id number] [place] [address] 79129- 6613 Mar, Mood disorder F39 [facility] [id number] [place] [address] 51077- 9306 Feb, [facility] [id number] [place] [address] 52878- 4010 Feb, Diabetes E11.9 and Bronchitis J40 [facility] [id number] [place] [address] 22607- 9203 Feb, [facility] [id number] [place] [address] 20220- 6229 Feb, [facility] [id number] [place] [address] 43290- 7790 Feb, Major depression, recurrent, full remission F33.42 and KELLY ( generalized anxiety disorder) F41.1 [facility] [id number] [place] [address] 64016- 9490 Feb, [facility] [id number] [place] [address] 91327- 4737 Feb, Single major depressive episode, in partial or unspecified remission F32.5 [facility] [id number] [place] [address] 33117- 6849 Jan, Fatigue 780.79 [facility] [id number] [place] [address] 58348- 1052 Jan, [address] [address]- 6710 Jan, Diabetes with other specified manifestations, type II or unspecified type, not stated as uncontrolled 250.80 [place] [id number] [place] [address] 41309832- 3925 Jan, [place] [id number] [place] [address] 13284- 7161 Dec, Hot flashes 627.2 ; Memory loss 780.93 and Joint pain 719.40 [place] [id number] [place] [address] 41243- 8467 Dec, Major depression, recurrent 296.30 ; Generalized anxiety disorder 300.02 ; Adjustment disorder with depressed mood 309.0 and No condition on [place] II V71.09 [place] [id number] [place] [address] 28374- 1822 Dec, [place] [id number] [place] [address] 33397- 4928 Nov, Cognitive and neurobehavioral dysfunction 294.9 ; Major depressive disorder, recurrent episode, moderate degree 296.32 and Anxiety state , unspecified 300.00 [place] [id number] [place] [address] 65963- 0097 Nov, [place] [id number] [place] [address] 54646- 8124 Nov, Bronchitis 490 and Diabetes with other specified manifestations, type II or unspecified type, not stated as uncontrolled 250.[address] [place] [address] 34490- 9103 Nov, Major depressive disorder, recurrent episode, moderate 296.32 and Anxiety disorder, unspecified 300.[address] [place] [address] 11148- 7507 Nov, Anxiety, generalized 300.02 ; Intermittent explosive disorder 312.34 ; No condition on [place] II V71.09 and No condition on axis III V71.[address] [id number] [address]- 8406 Oct, Diabetes with other specified manifestations, type II or unspecified type, not stated as uncontrolled 250.80 ; Urinary tract infection, site not specified 599.0 and Bronchitis [address], [place] [address]- 7523 17 Oct, 2014 Intermittent explosive disorder 312.34 ; Bipolar 1 disorder , depressed, moderate 296.52 ; Major depression, chronic 296.20 ; No condition on [place] II V71.09 and No condition on axis III V71.09 [address] [place] [address] 02015- 4128 Oct, Major depressive disorder, recurrent episode, moderate 296.32 ; Anxiety state 300.00 ; Cognitive decline 294.9 and No condition on [place] II V71.09 [place] [id number] [place] [address] 32936- 5695 Oct, [place] [id number] [place] [address] 22267- 9550 Oct, Major depressive disorder, recurrent episode, moderate 296.32 ; Anxiety disorder, unspecified 300.00 and Persistent disorder of initiating or maintaining sleep 307.42 [id number], [place] [address] September, Diabetes with other specified manifestations, type II or unspecified type, not stated as uncontrolled 250.80 ; Memory loss 780.93 and Cognitive complaints 799.[id number] [place] [address] September, No condition on [place] II V71.09 ; Major depression, recurrent 296.30 and Persistent mood [affective] disorder, unspecified 296.[id number] [place] [address] Aug, [id number], [place] [address] Aug, [id number] [place] [address] 13 Aug, 2014 [facility] [place] [facility] [address] [id number] [place] [address] Jul, 2014 [facility] [place] [facility] [address] [facility] [id number] [place] [address] Jul, 2014 [facility] [place] [facility] [address] [facility] [id number] [place] [address] Jul, 2014 [facility] [place] [facility] [address] [facility] [id number] [place] [address] Jul, [facility] [place] [facility] [address] [facility] [id number] [place] [address] Jul, [facility] [place] [facility] [address] [facility] [id number] [place] [address] Jun, 2014 [facility] [place] [facility] [address] [facility] [id number] [place] [address] Jun, 2014 [facility] [place] [facility] [address] [facility] [id number] [place] [address] Jun, 2014 [facility] [place] [facility] [address] [facility] [id number] [place] [address] Jun, 2014 [facility] [place] [facility] [address] [place] [id number] [place] [address] Jun, 2014 [facility] [place] [facility] [address] [facility] [id number] [place] [address] Jun, 2014 [facility] [place] [facility] [address] [facility] [facility] [id number] [place] [address] Jun, 2014 [facility] [place] [facility] [address] [facility] [id number] [place] [address] Jun, 2014 [facility] [place] [facility] [address] [facility] [id number], [place] [address] Jun, 2014 [facility] [place] [facility] [id number] [address] Jun, 2014 [facility] [place] [facility] [address] [id number] [place] [address] Jun, 2014 [facility] [place] [facility] [address] [id number] [place] [address] Jun, 2014 [facility] [place] [facility] [address] [id number] [place] [address] 9052 Jun, [facility] [place] [facility] [address] [id number] [place] [address] 0218 May, [facility] [place] [facility] [address] [id number] [place] [address] 6792 May, [facility] [place] [facility] [address] [id number] [place] [address]797 Apr, [facility] [address] [facility] [id number] [place] [address] 8311 Apr, [facility] [place] [facility] [address] [id number] [place] [address] 0790 Apr, [facility] [place] [facility] [address] [id number] [place] [address]- 7434 Apr, [facility] [place] [facility] [address] [facility] [id number] [place] [address] Apr, [facility] [place] [facility] [address] [id number] [place] [address] 9368 Apr, [facility] [place] [facility] [address] [id number] [place] [address]- 2561 Apr, [facility] [place] [facility] [address] [id number] [place] [address]- 5279 Apr, [facility] [place] [facility] [address] [facility] [id number] [place] [address]- 8135 Apr, [facility] [place] [facility] [address] [facility] [id number] [place] [address]- 2328 Apr, [facility] [place] [facility] [address] [id number] [place] [address]- 1404 Apr, [facility] [place] [facility] [address] [id number] [place] [address]- 9248 Apr, [facility] [place] [facility] [address] [id number] [place] [address]- 6216 Apr, [facility] [place] [facility] [address] [id number] [place] [address]- 5419 Apr, [facility] [place] [facility] [address] [id number] [place] [address]- 5236 Apr, [facility] [place] [facility] [address] [id number] [place] [address]- 9067 Apr, [facility] [place] [facility] [address] [id number] [place] [address]- 3820 Apr, [facility] [place] [facility] [address] [id number] [place] [address]- 6135 Apr, [facility] [place] [facility] [address] [id number] [place] [address]- 8993 Apr, [facility] [place] [facility] [address] [id number] [place] [address]- 6449 Apr, [facility] [place] [facility] [address] [id number] [place] [address]- 2688 Mar, [facility] [place] [facility] [address] [id number] [place] [address]- 5474 Mar, [facility] [place] [facility] [address] [id number] [place] [address]- 7837 Mar, [facility] [place] [facility] [address] [id number] [place] [address]- 8939 Mar, [facility] [place] [facility] [address] [id number] [place] [address]- 3518 Mar, [facility] [place] [facility] [address] [id number] [place] [address] 8[address] Mar, [facility] [place] [facility] [address] [id number] [place] [address]- 5957 Mar, [facility] [place] [facility] [address] [id number] [place] [address]- 8117 Mar, [facility] [place] [facility] [address] [id number] [place] [address]- 5550 Mar, [facility] [place] [facility] [address] [id number] [place] [address]- 7733 Mar, [facility] [place] [facility] [address] [id number] [place] [address]- 7807 Mar, [facility] [place] [facility] [address] [id number] [place] [address]- 6917 Mar, [facility] [place] [facility] [address] [id number] [place] [address]- 4582 Mar, [facility] [place] [facility] [address] [id number], [place] [address] 237[address] Feb, [facility] [place] [facility] [address] [id number] [place] [address]- 7415 Feb, [facility] [place] [facility] [address] [id number] [place] [address]- 2316 Feb, [facility] [place] [facility] [address] [id number], [place] [address]- 2330 Feb, [facility] [place] [facility] [address] [id number], [place] [address]- 3033 Feb, [facility] [place] [facility] [address] [id number] [place] [address]- 4465 Feb, [facility] [place] [facility] [address] [id number], [place] [address]65 Feb, [facility] [place] [facility] [address] [id number], [place] [address]- 6918 Feb, [facility] [place] [facility] [address] [id number] [place] [address]- 1488 Feb, [facility] [place] [facility] [address] [id number] [place] [address]- 8404 Feb, [facility] [place] [facility] [address] [id number] [place] [address]- 6966 Feb, [facility] [place] [facility] [address] [id number] [place] [address]- 3645 Feb, [facility] [place] [facility] [address] [id number] [place] [address]- 1250 10 Feb, 2014 [facility] [place] [facility] [address] [id number] [place] [address]- 7151 Feb, [facility] [place] [facility] [address] [id number] [place] [address]- 3105 Feb, [facility] [place] [facility] [address] [id number] [place] [address]- 4878 10 Jan, 2013 [facility] [place] [facility] [address] [id number] [place] [address]- 0973 08 Jan, 2013 [facility] [place] [facility] [address] [id number] [place] [address]- 0851 08 Jan, 2013 [facility] [place] [facility] [address] [facility] [id number] [place] [address]- 2260 08 Jan, 2013 [facility] [place] [facility] [address] [id number] [place] [address]- 0028 08 Jan, 2013 [facility] [place] [facility] [address] [id number] [place] [address]- 0927 Dec, [facility] [place] [facility] [address] [id number] [place] [address]- 1633 Dec, [facility] [place] [facility] [address] [id number] [place] [address]- 1994 Dec, [facility] [place] [facility] [address] [id number] [place] [address]- 1858 Dec, [facility] [place] [facility] [address] [id number] [place] [address]- 0032 Nov, [facility] [place] [facility] [address] [id number] [place] [address]- 5565 Nov, [facility] [place] [facility] [address] [id number] [place] [address]- 9247 Nov, [facility] [place] [facility] [address] [id number] [place] [address]- 1250 Nov, [facility] [place] [facility] [address] [id number] [place] [address]- 5965 Nov, [facility] [place] [facility] [address] [id number] [place] [address]- 7981 Nov, [facility] [place] [facility] [address] [id number] [place] [address]- 2754 Nov, [facility] [place] [facility] [address] [id number] [place] [address]- 2404 Nov, [facility] [place] [facility] [address] [id number] [place] [address]- 7108 Nov, [facility] [place] [facility] [address] [id number] [place] [address]- 9249 Nov, [facility] [place] [facility] [address] [id number] [place] [address]- 9066 Oct, [facility] [place] [facility] [address] [id number] [place] [address]- 4159 Oct, [facility] [place] [facility] [address] [id number] [place] [address]- 2250 September, [facility] [place] [facility] [address] [id number] [place] [address]- 5272 September, [facility] [place] [facility] [address] [id number] [place] [address]- 1796 September, [facility] [place] [facility] [address] [id number] [place] [address]- 7649 September, [facility] [place] [facility] [address] [id number] [place] [address] 16 Aug, 2013 [facility] [place] [facility] [address] [id number] [place] [address]- 0368 14 Aug, 2013 [facility] [place] [facility] [address] [id number] [place] [address]- 9756 Aug, [facility] [place] [facility] [address] [id number] [place] [address]- 1510 24 Jul, 2013 [facility] [place] [facility] [address] [id number] [place] [address]- 3828 24 Jul, 2013 [facility] [place] [facility] [address] [id number] [place] [address]- 1093 Jul, [facility] [place] [facility] [address] [id number] [place] [address]- 3669 Jul, [facility] [place] [facility] [address] [id number] [place] [address]- 5102 May, [facility] [place] [facility] [address] [id number] [place] [address]- 6000 May, [facility] [place] [facility] [address] [id number] [place] [address]- 8874 May, [facility] [place] [facility] [address] [id number], [place] [address]- 0383 15 Mar, 2013 [facility] [place] [facility] [address] [id number] [place] [address]- 4817 15 Mar, 2013 [facility] [place] [facility] [address] [id number] [place] [address]- 7051 13 Mar, 2013 [facility] [place] [facility] [address] [id number] [place] [address]- 9181 13 Mar, 2013 [facility] [place] [facility] [address] [id number] [place] [address]- 5182 16 Feb, 2013 [facility] [place] [facility] [address] [id number] [place] [address]- 2546 Feb, [facility] [address] [id number] [place] [address]- 9093 Feb, [facility] [address] [id number] [place] [address]- 2546 Jan, [facility] [address] [id number] [place] [address]- 7676 Jan, [facility] [address] [id number] [place] [address]- 2546 Jan, [facility] [address] [id number] [place] [address]- 4319 Dec, [facility] [address] [id number] [place] [address]- 5137 Dec, [facility] [address] [id number] [place] [address]- 5342 Dec, [facility] [address] [id number] [place] [address]- 0148 Dec, [facility] [address] [id number] [place] [address]- 5622 Nov, [facility] [address] [id number] [place] [address]- 5967 Oct, [facility] [address] [id number] [place] [address]- 2548 Oct, [facility] [address] [id number] [place] [address]- 4906 September, [facility] [place] [facility] [address] [id number] [place] [address]- 3595 September, [facility] [address] [id number] [place] [address]- 2546 September, [facility] [address] [id number] [place] [address]- 0569 Aug, [facility] [address] [id number] [place] [address]- 3391 18 Aug, 2012 [facility] [place] [facility] [address] [id number] [place] [address]- 8113 17 Aug, 2012 [facility] [address] [id number] [place] [address]- 2557 09 Aug, 2012 [facility] [place] [facility] [address] [id number] [place] [address]- 0245 26 Jul, 2012 [facility] [address] [id number] [place] [address]- 7760 25 Jul, 2012 [facility] [place] [facility] [address] [id number] [place] [address]- 7550 21 Jul, 2012 [facility] [place] [facility] [address] [id number] [place] [address]- 2149 15 Jul, 2012 [facility] [place] [facility] [address] [id number] [place] [address]- 9649 14 Jul, 2012 [facility] [place] [facility] [address] [id number] [place] [address]- 5420 Jul, [facility] [place] [facility] [address] [id number] [place] [address]- 6246 Jul, [facility] [place] [facility] [address] [id number] [place] [address]- 8862 Jun, [facility] [place] [facility] [address] [id number] [place] [address]- 8453 Jun, [facility] [place] [facility] [address] [id number] [place] [address] Jun, [facility] [place] [facility] [address] [id number] [place] [address] Jun, [facility] [place] [facility] [address] [id number] [place] [address]- 6805 May, [facility] [place] [facility] [address] [id number] [place] [address]- 6067 30 May, 2012 [facility] [place] [facility] [address] [id number] [place] [address]- 8379 May, [facility] [place] [facility] [address] [id number] [place] [address]- 7121 May, [facility] [address] [id number] [place] [address]- 5030 May, [facility] [place] [facility] [address] [id number] [place] [address]- 1187 Apr, [facility] [place] [facility] [address] [id number] [place] [address]- 2549 Apr, [facility] [place] [facility] [address] [id number] [place] [address]- 3177 Mar, [facility] [place] [facility] [address] [id number] [place] [address]- 4102 Mar, [facility] [place] [facility] [address] [id number] [place] [address]- 2602 Mar, [facility] [place] [facility] [address] [id number] [place] [address]- 5780 Mar, [facility] [place] [facility] [address] [facility] [id number] [place] [address]- 0822 Mar, [facility] [place] [facility] [address] [id number] [place] [address]- 0390 Mar, [facility] [place] [facility] [address] [id number] [place] [address]- 1483 Mar, [facility] [place] [facility] [address] [id number] [place] [address]- 6669 Mar, [facility] [place] [facility] [address] [id number] [place] [address]- 8404 Mar, [facility] [place] [facility] [address] [id number] [place] [address]- 3463 Mar, [facility] [place] [facility] [address] [id number] [place] [address]- 8312 Feb, [facility] [place] [facility] [address] [id number] [place] [address]- 8513 Feb, [facility] [place] [facility] [address] [id number] [place] [address]- 2275 Feb, [facility] [place] [facility] [address] [id number] [place] [address]- 5202 Feb, [facility] [place] [facility] [address] [id number] [place] [address]- 3912 Feb, [facility] [place] [facility] [address] [id number] [place] [address]- 4901 Feb, [facility] [place] [facility] [address] [id number] [place] [address]- 4659 Feb, [facility] [place] [facility] [address] [id number] [place] [address]- 9905 Jan, [facility] [place] [facility] [address] [id number] [place] [address]- 9930 Jan, [facility] [place] [facility] [address] [id number] [place] [address]- 5918 Dec, [facility] [place] [facility] [address] [id number] [place] [address]- 5039 Dec, [facility] [place] [facility] [address] [id number] [place] [address]- 2792 Dec, [facility] [place] [facility] [address] [id number] [place] [address]- 5226 Dec, [facility] [place] [facility] [address] [id number] [place] [address]- 1058 Dec, [facility] [place] [facility] [address] [id number] [place] [address]- 9497 15 Dec, 2011 [facility] [place] [facility] [address] [id number] [place] [address]- 2546 Nov, [facility] [place] [facility] [address] [id number] [place] [address]- 8038 Nov, [facility] [place] [facility] [address] [id number] [place] [address]- 8556 Nov, [facility] [place] [facility] [address] [id number] [place] [address]- 5950 Nov, [facility] [place] [facility] [address] [id number] [place] [address]- 6350 September, [facility] [place] [facility] [address] [id number] [place] [address]- 5157 September, [facility] [place] [facility] [address] [id number] [place] [address]058 September, [facility] [place] [facility] [address] [id number] [place] [address]- 3566 Jul, [facility] [place] [facility] [address] [id number] [place] [address]- 8472 Jun, [facility] [place] [facility] [address] [id number] [place] [address]- 6283 Jun, [facility] [place] [facility] [address] [id number] [place] [address]- 5953 Jun, [facility] [place] [facility] [address] [id number] [place] [address]- 9223 Apr, [facility] [place] [facility] [address] [id number] [place] [address]- 9715 Mar, [facility] [place] [facility] [address] [id number] [place] [address]- 3529 Mar, [facility] [place] [facility] [address] [id number] [place] [address]- 3810 Feb, [facility] [place] [facility] [address] [id number] [place] [address]- 9616 Feb, [facility] [place] [facility] [address] [facility] [id number] [place] [address]- 6495 11 Feb, 2011 [facility] [address] [facility] [id number] [place] [address]- 1521 10 Jul, 2009 [facility] [address] [facility] [id number] [place] [address]- 5287 20 Feb, 2008 IMMUNIZATIONS No Known Immunizations SOCIAL HISTORY Never Assessed REASON FOR VISIT PLAN OF CARE VITAL SIGNS MEDICATIONS Unknown Medications RESULTS No Results PROCEDURES No Known procedures [...]
--- OUTSIDE RECORDS SUMMARY | 2018-02-02 23:39 | XMS REPORT ---
Author Author MACY TAMAYO Organization [facility] [place] Address [address] [place] [address] Care Team Providers Care Res Habilitation Assistant Name Role Phone MACY TAMAYO Unavailable PROBLEMS Type Condition ICD9-CM Code NCM80-RS Code Onset Dates Condition Status SNOMED Code Problem Plantar wart of both feet B07.0 Active [id number] Problem Controlled type 2 diabetes mellitus without complication, without long -term current use of insulin E11.9 Active 876156067 Problem Lumbago with sciatica, left side M54.42 Active 011095177 Problem Lumbago with sciatica, right side M54.41 Active 905744230 Problem Morbid (severe) obesity due to excess calories E66.01 Active 651867754 Problem Body mass index (BMI) of 45.0-49.9 in adult Z68.42 Active 742158376 Problem Tachycardia with heart rate 121-140 beats per minute R00.0 Active 0491934 Problem Dermatomyositis M33.90 Active 317817628 Problem Enlarged thyroid gland E04.9 Active 4639379 Problem Allergic rhinitis due to pollen J30.1 Active 92392012 Problem Mood disorder F39 Active 15669422 Problem Menopause Z78.0 Active 894208691 Problem Anxiety F41.9 Active 21560268 Problem Other chronic pain G89.29 Active 48108090 Problem Diabetes type 2, controlled E11.9 Active 44133607 Problem Arthritis M19.90 Active 9258854 Problem Osteoarthritis of right knee, unspecified osteoarthritis type M17.9 Active 503317039 Problem Plantar warts B07.0 Active 19742116 ALLERGIES No Information ENCOUNTERS Encounter Location Date Diagnosis [facility] [place] [id number] [address] Jan, [facility] [place] [id number] [address] Jan, [facility] [place] [address] [address] Jan, [facility] [place] [id number] [place] [address] 06248- 6518 Dec, [facility] [place] [id number] [place] [address] 56593- 0366 Dec, [facility] [place] [id number] [place] [address] 16646- 1098 Dec, [facility] [place] [id number] [place] [address] 50962- 2181 Dec, Acute non-recurrent maxillary sinusitis J01.00 [facility] [place] [id number] [place] [address] 36387- 6754 Dec, Lumbago with sciatica, right side M54.41 and Lupus erythematosus L93.0 [facility] [place] [id number] [place] [address] 88351- 6916 Dec, Mood disorder F39 [facility] [place] [id number] [place] [address] 64088- 7738 Dec, Mood disorder F39 [facility] [place] [id number] [place] [address] 73847- 2097 Dec, [facility] [place] [id number] [place] [address] 83690- 0968 Dec, Acute right ankle pain M25.571 [facility] [place] [id number] [place] [address] 96619- 6603 Nov, Lumbar radiculopathy M54.16 [facility] [place] [id number] [place] [address] 42626- 1231 Nov, [facility] [place] [id number] [place] [address] 75395- 7056 Nov, Mood disorder F39 [facility] [place] [id number] [place] [address] 13025- 5877 Nov, Lumbago with sciatica, right side M54.41 and Other chronic pain G89.29 [facility] [place] [id number] [place] [address] 50056- 0281 Nov, Acute right ankle pain M25.571 [facility] [place] [id number] [place] [address] 84306- 5019 Nov, [facility] [place] [address] 02651- 7847 Oct, [facility] [place] [id number] [place] [address] 40625- 0234 Oct, Plantar wart of both feet B07.0 [facility] [place] [id number] [place] [address] 17778- 1765 Oct, [facility] [place] [id number] [place] [address] 75819- 6958 Oct, Acute right ankle pain M25.571 and Plantar wart of both feet B07.0 [facility] [place] [id number] [place] [address] 42481- 6766 September, Other chronic pain G89.29 [facility] [place] [id number] [place] [address] 22338- 8849 September, Other chronic pain G89.29 [facility] [place] [id number] [place] [address] 82387- 3541 September, Other chronic pain G89.29 [facility] [place] [id number] [place] [address] 50563- 0769 Aug, Mood disorder F39 [facility] [place] [id number] [place] [address] 80650- 7792 Aug, Other chronic pain G89.29 ; Controlled type 2 diabetes mellitus without complication, without long-term current use of insulin E11.9 ; Low back pain M54.5 and Tinea corporis B35.4 [facility] [place] [id number] [place] [address] 56305- 4080 Aug, Mood disorder F39 and Anxiety F41.9 [address] 23957- 6441 Aug, Mood disorder F39 and Anxiety F41.9 [place] [id number] [place] [address] 53794- 1047 Jul, [facility] [address] 64062 -8979 Jul, Scabies B86 and BMI 45.0-49.9, adult Z68.42 [address] 57512- 8073 Jul, [address] [address] 75805- 8470 Jul, Mood disorder F39 and Anxiety F41.9 [address] 98727- 0639 Jul, [facility] [place] [id number] [place] [address] 43803 -6389 27 Jun, 2017 Bronchitis J40 ; Dark urine R82.99 and BMI 45.0-49.9, adult Z68.42 [place] [id number] [place] [address] 55754- 4618 14 Jun, 2017 Acute pain of right shoulder M25.511 and Acute pain of right knee M25.561 [place] [id number] [place] [address] 69809- 3393 May, BMI 40.0-44.9, adult Z68.41 ; Controlled type 2 diabetes mellitus without complication, without long-term current use of insulin E11.9 ; Muscle cramping R25.2 ; Hot flashes R23.2 ; Mood disorder F39 ; Anxiety F41.9 and Morbid (severe) obesity due to excess calories E66.01 [place] [id number] [place] [address] 78082- 2449 May, BMI 40.0-44.9, adult Z68.41 ; Controlled type 2 diabetes mellitus without complication, without long-term current use of insulin E11.9 ; Muscle cramping R25.2 and Hot flashes R23.2 [id number] [place] [address] 98892- 6920 May, Tachycardia with heart rate 121-140 beats per minute R00.0 ; Morbid (severe) obesity due to excess calories E66.01 ; Diabetes type 2, controlled E11.9 and Enlarged thyroid gland E04.[address] 20004- 3276 25 May, 2017 Encounter for well woman exam with routine [...] Dysuria R30.0 and Screening breast examination Z12.[address] 92194- 6985 Apr, Mood disorder F39 ; Other chronic pain G89.29 and Anxiety F41.[address] 76376- 7910 Apr, Lumbago with sciatica, left side M54.42 and Other chronic pain G89.[address] 76104- 5921 Apr, Lupus erythematosus L93.[address] 85268- 6874 Mar, Plantar wart of both feet B07.[address] 26156- 8610 Mar, Lupus erythematosus L93.0 and Sinus drainage J34.89 [facility] [place] [id number] [place] [address] 05749- 3148 Mar, Mood disorder F39 ; Other chronic pain G89.29 and Anxiety F41.9 [facility] [place] [id number] [place] [address] 78384 2546 Mar, Mood disorder F39 ; Arthritis M19.90 and Plantar warts B07.0 [facility] [place] [id number] [place] [address] 46203- 0877 Feb, Lupus erythematosus L93.0 [facility] [place] [address] 69561- 8406 Feb, Other chronic pain G89.29 [facility] [place] [address] 15003- 7786 Feb, Mood disorder F39 and Anxiety F41.9 [facility] [place] [id number] [place] [address] 34082- 5194 Jan, [facility] [place] [id number] [place] [address] 64134- 2434 Jan, Mood disorder F39 [facility] [place] [id number] [place] [address] 94743 2543 Dec, Nail, ingrown L60.0 [facility] [place] [id number] [place] [address] 16190- 7856 Dec, Nail, ingrown L60.0 [facility] [place] [id number] [place] [address] 31318- 8105 Nov, Mood disorder F39 and Anxiety F41.9 [facility] [place] [address] 62095- 6610 Nov, Sinus drainage J34.89 ; Hot flashes R23.2 ; Anxiety F41.9 and Diabetes type 2, controlled E11.9 [facility] [place] [address] [place] [address]- 7508 Nov, Nail, ingrown L60.0 [facility] [place] [id number] [place] [address] 60626- 6837 Oct, Anxiety F41.9 and Mood disorder F39 [facility] [place] [id number] [place] [address] 81045- 1710 Oct, Nail, ingrown L60.0 and Anxiety F41.9 [facility] [place] [address] 67179- 8615 Oct, Lupus erythematosus L93.0 [facility] [place] [address] 86586- 8298 September, [facility] [place] [id number] [place] [address] 95004- 5953 September, [facility] [place] [address] 14502- 7183 September, Lupus erythematosus L93.0 [facility] [place] [id number] [place] [address] 13528- 2106 Aug, [facility] [place] [id number] [place] [address] 83990- 3882 Aug, Mood disorder F39 and Anxiety F41.9 [facility] [place] [id number] [place] [address] 08199- 3159 Aug, Lupus erythematosus L93.0 ; Diabetes type 2, controlled E11.9 and Localized edema R60.0 [facility] [place] [id number] [place] [address] 54756- 8936 Aug, [facility] [place] [id number] [place] [address] 35948- 8872 Jul, Anxiety F41.9 and Mood disorder F39 [facility] [place] [id number] [place] [address] 07234- 5311 Jul, Diabetes type 2, controlled E11.9 [facility] [place] [id number] [place] [address] 66154- 1829 13 Jun, 2016 Anxiety F41.9 [facility] [place] [id number] [place] [address] 65035- 3703 May, [place] [id number] [place] [address] 23055- 3615 May, [address] [address] 59135- 4311 May, Nausea R11.0 ; Other chronic pain G89.29 and Pain in right knee M25.561 [place] [address] 05678- 4756 May, [place] [id number] [place] [address] 96089- 1444 Apr, Tear of medial meniscus of right knee, current, unspecified tear type, subsequent encounter S83.241D and Tear of lateral meniscus of right knee, current, unspecified tear type, subsequent encounter S83.281D [place] [id number] [place] [address] 24235- 6431 Apr, Anxiety F41.9 and Mood disorder F39 [place] [id number] [place] [address] 85073- 3328 Apr, Anxiety F41.9 [place] [id number] [place] [address] 90634- 1681 Apr, [facility] [place] [id number] [place] [address] 50824- 8512 Mar, [place] [id number] [place] [address] 50061- 8578 Mar, Lupus erythematosus L93.0 and Diabetes type 2, controlled E11.9 [place] [id number] [place] [address] 32733- 4515 Mar, Mood disorder F39 [place] [address] [place] [address]- 6835 Mar, Tear of lateral meniscus of right knee, current, unspecified tear type, initial encounter S83.281A and Osteoarthritis of right knee, unspecified osteoarthritis type M17.9 [facility] [place] [id number] [place] [address] 27349- 4028 Mar, [facility] [place] [address] 64242- 2947 Feb, Mood disorder F39 [facility] [place] [address] 63333- 2760 Feb, Rash R21 [facility] [place] [address] 58450- 8934 Feb, [facility] [place] [id number] [place] [address] 07794- 8750 Jan, Other chronic pain G89.29 and Muscle spasm M62.838 [facility] [place] [address] 88931- 8639 Jan, Mood disorder F39 [facility] [place] [address] 99591- 9416 Jan, Pain in right knee M25.561 ; Other chronic pain G89.29 and Muscle spasm M62.838 [facility] [place] [id number] [place] [address] 54573- 5830 Dec, [facility] [place] [id number] [place] [address] 68601- 4137 Dec, [facility] [place] [id number] [place] [address] 42078- 5996 Nov, [facility] [place] [id number] [place] [address] 65595- 0688 Nov, Mood disorder F39 [facility] [place] [id number] [place] [address] 52557- 1926 Nov, Diabetes type 2, controlled E11.9 ; Bronchitis J40 ; Edema, unspecified type R60.9 ; Weight gain R63.5 and Right knee pain, unspecified chronicity M25.561 [facility] [place] [id number] [place] [address] 16008- 9924 Oct, Mood disorder F39 [facility] [place] [id number] [place] [address] 30366- 2766 Oct, Lupus erythematosus L93.0 and Bilateral edema of lower extremity R60.0 [facility] [place] [id number] [place] [address] 02869- 2799 Oct, Mood disorder F39 and Anxiety F41.9 [place] [address] 72152- 3309 September, Mood disorder F39 ; Anxiety F41.9 and Anger reaction R45.4 [place] [address] 61810- 3775 September, Diabetes type 2, controlled E11.9 ; Edema, unspecified type R60.9 and Fatigue, unspecified type R53.83 [place] [id number] [place] [address] 05149- 7510 Aug, Mood disorder F39 and Generalized anxiety disorder F41.1 [place] [id number] [place] [address] 51210- 5937 Aug, Diabetes type 2, controlled E11.9 ; Sinusitis J32.9 and Mood disorder F39 [facility] [place] [id number] [place] [address] 22070- 1803 15 Aug, 2015 Lupus erythematosus L93.0 [facility] [place] [id number] [place] [address] 86818- 4184 14 Aug, 2015 [facility] [place] [id number] [place] [address] 67429- 4615 Aug, [place] [id number] [place] [address] 40835- 3201 Jul, Diabetes type 2, controlled E11.9 [facility] [place] [address] [address]- 5457 Jul, Mood disorder F39 and Depression F32.9 [facility] [place] [id number] [place] [address] 36336- 9396 Jul, Lupus erythematosus L93.0 and Diabetes type 2, controlled E11.9 [facility] [place] [id number] [place] [address] 31658- 7160 Jul, Mood disorder F39 and Anxiety F41.9 [facility] [place] [id number] [place] [address] 84521- 2915 Jul, [facility] [place] [id number] [place] [address] 47678- 1398 Jul, [facility] [place] [id number] [place] [address] 50388- 9622 Jun, Mood disorder F39 and Anxiety F41.9 [facility] [place] [id number] [place] [address] 71796- 6938 Jun, Mood disorder F39 [facility] [place] [id number] [place] [address] 67978- 2976 Jun, [facility] [place] [id number] [place] [address] 65648- 0406 Jun, [facility] [place] [id number] [place] [address] 54258- 5791 08 Jun, 2015 Mood disorder F39 [facility] [place] [address] [address]- 6898 Jun, [facility] [place] [id number] [place] [address] 91454- 2966 May, [facility] [place] [address] [address]- 2945 May, [facility] [place] [id number] [place] [address] 21971- 3030 May, [facility] [place] [id number] [place] [address] 13631- 0559 May, [facility] [place] [id number] [place] [address] 07312- 9491 May, Anxiety F41.9 ; Dermatomyositis M33.90 and Diabetes type 2, controlled E11.9 [facility] [id number] [place] [address] 90307 -7860 May, Sinusitis J32.9 and Cough R05 [facility] [place] [id number] [place] [address] 68624- 1456 May, Mood disorder F39 [facility] [place] [id number] [place] [address] 09548- 9033 May, Adjustment disorder with mixed anxiety and depressed mood F43.23 [facility] [place] [id number] [place] [address] 71217- 2583 Apr, [facility] [place] [id number] [place] [address] 48867- 5533 Apr, [facility] [place] [id number] [place] [address] 96935- 2647 Apr, Generalized anxiety disorder F41.1 and Mood disorder F39 [facility] [place] [id number] [place] [address] 06461- 3416 Mar, [facility] [place] [id number] [place] [address] 76943- 5050 Mar, [facility] [place] [id number] [place] [address] 27464- 2119 Mar, [facility] [place] [id number] [place] [address] 04095- 0885 Mar, Mood disorder F39 [facility] [place] [id number] [place] [address] 66808- 3245 Feb, [facility] [id number] [place] [address] 79965- 1063 Feb, Diabetes E11.9 and Bronchitis J40 [place] [id number] [place] [address] 56567- 9580 Feb, [place] [id number] [place] [address] 31720- 3892 Feb, [place] [id number] [place] [address] 05057- 3021 Feb, Major depression, recurrent, full remission F33.42 and KELLY ( generalized anxiety disorder) F41.1 [place] [id number] [place] [address] 12629- 0902 Feb, [place] [id number] [place] [address] 92366- 9935 Feb, Single major depressive episode, in partial or unspecified remission F32.5 [place] [id number] [place] [address] 21325- 4760 Jan, Fatigue 780.79 [place] [id number] [place] [address] 57239- 6793 Jan, [place] [id number] [place] [address] 70380- 0756 Jan, Diabetes with other specified manifestations, type II or unspecified type, not stated as uncontrolled 250.80 [place] [id number] [place] [address] 70841- 6591 Jan, [place] [id number] [place] [address] 19087- 5630 Dec, Hot flashes 627.2 ; Memory loss 780.93 and Joint pain 719.40 [place] [id number] [place] [address] 70425- 9579 Dec, Major depression, recurrent 296.30 ; Generalized anxiety disorder 300.02 ; Adjustment disorder with depressed mood 309.0 and No condition on [place] II V71.09 [place] [id number] [address] 386[address] Dec, [place] [id number] [place] [address] 18519- 9403 Nov, Cognitive and neurobehavioral dysfunction 294.9 ; Major depressive disorder, recurrent episode, moderate degree 296.32 and Anxiety state , unspecified 300.00 [place] [id number] [place] [address] 94736- 6143 Nov, [place] [id number] [place] [address] 41263- 9046 Nov, Diabetes with other specified manifestations, type II or unspecified type, not stated as uncontrolled 250.80 and Bronchitis [id number] [place] [address] 87806- 4241 Nov, Major depressive disorder, recurrent episode, moderate 296.32 and Anxiety disorder, unspecified 300.00 [place] [id number] [place] [address] 06834- 7857 Nov, Anxiety, generalized 300.02 ; Intermittent explosive disorder 312.34 ; No condition on [place] II V71.09 and No condition on axis III V71.09 [place] [id number] [place] [address] 81769- 8258 Oct, Diabetes with other specified manifestations, type II or unspecified type, not stated as uncontrolled 250.80 ; Urinary tract infection, site not specified 599.0 and Bronchitis 490 [place] [id number] [place] [address] 74631- 6516 Oct, Intermittent explosive disorder 312.34 ; Bipolar 1 disorder , depressed, moderate 296.52 ; Major depression, chronic 296.20 ; No condition on [place] II V71.09 and No condition on axis III V71.09 [place] [id number] [place] [address] 86699- 4719 Oct, Major depressive disorder, recurrent episode, moderate 296.32 ; Anxiety state 300.00 ; Cognitive decline 294.9 and No condition on [place] II V71.09 [facility] [place] [id number] [place] [address] 56950- 8521 Oct, [facility] [place] [id number] [place] [address] 956842- 0485 Oct, Major depressive disorder, recurrent episode, moderate 296.32 ; Anxiety disorder, unspecified 300.00 and Persistent disorder of initiating or maintaining sleep 307.42 [facility] [place] [id number] [place] [address] 59748- 3820 September, Diabetes with other specified manifestations, type II or unspecified type, not stated as uncontrolled 250.80 ; Memory loss 780.93 and Cognitive complaints 799.59 [facility] [place] [id number] [place] [address] 46163- 5872 September, No condition on [place] II V71.09 ; Major depression, recurrent 296.30 and Persistent mood [affective] disorder, unspecified 296.90 [facility] [place] [id number] [place] [address] 41528- 0153 Aug, [facility] [place] [id number] [place] [address] 78584- 5156 Aug, [facility] [place] [id number] [place] [address] 32055- 8192 Aug, [facility] [place] [id number] [address]- 1354 Jul, [facility] [place] [id number] [place] [address] 41974- 4820 Jul, [facility] [place] [address] [id number] [address]- 5149 Jul, [facility] [place] [id number] [place] [address] [id number]- 8156 Jul, [facility] [place] [id number] [place] [address] 076070- 4101 Jul, [facility] [place] [id number] [place] [address]- 6766 Jun, 2014 [facility] [place] [facility] [address] [id number] [place] [address]- 9288 Jun, 2014 [facility] [place] [facility] [address] [id number] [place] [address]- 3067 Jun, 2014 [facility] [place] [facility] [address] [facility] [id number] [place] [address]- 1215 Jun, 2014 [facility] [place] [facility] [address] [id number] [place] [address]- 9747 Jun, 2014 [facility] [place] [facility] [address] [facility] [id number] [place] [address]- 5646 Jun, 2014 [facility] [place] [facility] [address] [facility] [id number] [place] [address]- 4485 Jun, 2014 [facility] [place] [facility] [address] [facility] [id number] [place] [address]- 7257 Jun, 2014 [facility] [place] [facility] [address] [facility] [id number] [place] [address]- 3637 Jun, 2014 [facility] [place] [facility] [address] [facility] [id number] [place] [address]- 0292 Jun, 2014 [facility] [place] [facility] [id number] [place] [address]- 2311 Jun, 2014 [facility] [place] [facility] [address] [facility] [id number] [place] [address]- 4649 Jun, 2014 [facility] [place] [facility] [address] [facility] [id number] [place] [address]- 1483 Jun, 2014 [facility] [place] [facility] [address] [facility] [id number] [place] [address]- 8083 May, [facility] [place] [facility] [address] [facility] [id number] [place] [address]- 8497 May, [facility] [place] [facility] [address] [facility] [id number] [address]- 0016 Apr, [facility] [place] [facility] [address] [id number] [place] [address]- 8596 Apr, [facility] [place] [facility] [address] [id number] [place] 3756 Apr, [facility] [place] [facility] [address] [id number] [place] [address]- 4406 Apr, [facility] [place] [facility] [address] [id number] [place] [address]- 7635 Apr, [facility] [place] [facility] [address] [id number] [place] [address]- 6225 Apr, [facility] [place] [facility] [address] [id number] [place] [address]- 4183 Apr, [facility] [place] [facility] [address] [id number] [place] [address]- 2299 Apr, [facility] [place] [facility] [address] [id number] [place] [address]- 7332 Apr, [facility] [place] [facility] [address] [id number] [place] [address]- 6092 Apr, [facility] [place] [facility] [address] [id number] [place] [address]- 2930 Apr, [facility] [place] [facility] [address] [id number] [place] [address]- 8301 Apr, [facility] [place] [facility] [address] [id number] [place] [address]- 0513 Apr, [facility] [place] [facility] [address] [id number] [place] [address]- 6255 Apr, [facility] [place] [facility] [address] [id number] [place] [address]- 0642 Apr, [facility] [place] [facility] [address] [id number] [place] [address]- 5890 Apr, [facility] [place] [facility] [address] [id number] [place] [address]- 6668 08 Apr, 2014 [facility] [place] [facility] [address] [id number] [place] [address]- 0572 Apr, [facility] [place] [facility] [address] [id number] [place] [address]- 9741 Apr, [facility] [place] [facility] [address] [id number] [place] [address]- 0737 Apr, [facility] [place] [facility] [address] [id number] [place] [address]- 7492 Mar, [facility] [place] [facility] [address] [id number] [place] [address]- 0153 Mar, [facility] [place] [facility] [address] [id number] [place] [address]- 8062 Mar, [facility] [place] [facility] [address] [id number] [place] [address]- 6101 Mar, [facility] [place] [facility] [address] [id number] [place] [address]- 8122 Mar, [facility] [place] [facility] [address] [id number] [place] [address]- 0136 Mar, [facility] [place] [facility] [address] [id number] [place] [address]- 0766 Mar, [facility] [place] [facility] [address] [id number] [place] [address]- 6472 Mar, [facility] [place] [facility] [address] [id number] [place] [address]- 4966 Mar, [facility] [place] [facility] [address] [id number] [place] [address]- 9004 Mar, [facility] [place] [facility] [address] [id number] [place] [address]- 7800 Mar, [facility] [place] [facility] [address] [id number] [place] [address]- 7103 Mar, [facility] [place] [facility] [address] [id number] [place] [address]- 6430 Mar, [facility] [place] [facility] [address] [id number] [place] [address]- 2912 Feb, [facility] [place] [facility] [address] [id number] [place] [address]- 6325 Feb, [facility] [place] [facility] [address] [id number] [place] [address]- 6460 Feb, [facility] [place] [facility] [address] [id number] [place] [address]- 6045 Feb, [facility] [place] [facility] [address] [id number] [place] [address]- 0877 Feb, [facility] [place] [facility] [address] [id number] [place] [address]- 7122 Feb, [facility] [place] [facility] [address] [id number] [place] [address]- 0654 Feb, [facility] [place] [facility] [address] [id number] [place] [address]- 2809 Feb, [facility] [place] [facility] [address] [id number] [place] [address]- 6126 Feb, [facility] [place] [facility] [address] [id number] [place] [address]- 2120 Feb, [facility] [place] [facility] [address] [id number] [place] [address]- 7821 Feb, [facility] [place] [facility] [address] [id number] [place] [address]- 3533 Feb, [facility] [place] [facility] [address] [id number] [address]- 7602 Feb, [facility] [place] [facility] [address] [id number] [address]- 0641 Feb, [facility] [place] [facility] [address] [id number] [address]- 6687 07 Feb, 2014 [facility] [place] [facility] [address] [id number] [place] [address]- 1738 10 Jan, 2014 [facility] [place] [facility] [address] [id number] [place] [address]- 3649 08 Jan, 2014 [facility] [place] [facility] [address] [id number] [place] [address]- 2509 08 Jan, 2014 [facility] [place] [facility] [address] [id number] [place] [address]- 0985 Jan, [facility] [place] [facility] [address] [id number] [place] [address]- 7754 Jan, [facility] [place] [facility] [address] [id number] [place] [address]- 3374 Dec, [facility] [place] [facility] [address] [id number] [place] [address]- 6873 Dec, [facility] [place] [facility] [address] [id number] [place] [address]- 5763 Dec, [facility] [place] [facility] [address] [id number] [place] [address]- 5898 Dec, [facility] [place] [facility] [address] [id number] [place] [address]- 6552 Nov, [facility] [place] [facility] [address] [id number] [place] [address]- 6232 Nov, [facility] [place] [facility] [address] [id number] [place] [address]- 1140 Nov, [facility] [place] [facility] [address] [id number] [place] [address]- 1545 Nov, [facility] [place] [facility] [address] [id number] [place] [address]- 3099 Nov, [facility] [place] [facility] [address] [id number] [place] [address]- 7818 Nov, [facility] [place] [facility] [address] [id number] [place] [address]- 0959 Nov, [facility] [place] [facility] [address] [id number] [place] [address]- 8871 Nov, [facility] [place] [facility] [address] [id number] [place] [address]- 1437 Nov, [facility] [place] [facility] [address] [id number] [place] [address]- 0619 Nov, [facility] [place] [facility] [address] [id number] [place] [address]- 5022 Oct, [facility] [place] [facility] [address] [id number] [place] [address]- 2044 Oct, [facility] [place] [facility] [address] [id number] [place] [address]- 8014 September, [facility] [place] [facility] [address] [id number] [place] [address]- 6338 September, [facility] [place] [facility] [address] [id number] [place] [address]- 6578 September, [facility] [place] [facility] [address] [id number] [place] [address]- 1379 September, [facility] [place] [facility] [address] [id number] [place] [address]- 2899 16 Aug, 2013 [facility] [place] [facility] [address] [id number] [place] [address]- 8387 Aug, [facility] [place] [facility] [address] [id number] [place] [address]- 5772 Aug, [facility] [place] [facility] [address] [id number] [place] [address]- 7854 Jul, [facility] [place] [facility] [address] [id number] [place] [address]- 6776 24 Jul, 2013 [facility] [place] [facility] [address] [id number] [place] [address]- 6183 14 Jul, 2013 [facility] [place] [facility] [address] [id number] [place] [address]- 1487 14 Jul, 2013 [facility] [place] [facility] [address] [id number] [place] [address]- 8592 20 May, 2013 [facility] [place] [facility] [address] [id number] [place] [address]- 8921 17 May, 2013 [facility] [place] [facility] [address] [id number] [place] [address]- 3342 17 May, 2013 [facility] [place] [facility] [address] [id number] [place] [address]- 1889 15 Mar, 2013 [facility] [place] [facility] [address] [id number] [place] [address]- 1760 15 Mar, 2013 [facility] [place] [facility] [address] [id number] [place] [address]- 5703 Mar, [facility] [place] [facility] [address] [id number] [place] [address]- 5956 Mar, [facility] [place] [facility] [address] [id number] [place] [address]- 1725 16 Feb, 2013 [facility] [place] [facility] [address] [id number] [place] [address]- 7033 16 Feb, 2013 [facility] [place] [facility] [address] [id number] [place] [address]- 7582 04 Feb, 2013 [facility] [place] [facility] [address] [id number] [address]- 9728 16 Jan, 2013 [facility] [place] [facility] [address] [id number] [place] [address]- 2383 12 Jan, 2013 [facility] [place] [facility] [address] [id number] [place] [address]- 7200 09 Jan, 2013 [facility] [place] [facility] [address] [id number] [place] [address]- 3980 Dec, [facility] [place] [facility] [address] [id number] [place] [address]- 7453 Dec, [facility] [address] [id number] [place] [address]- 3502 Dec, [facility] [place] [facility] [address] [id number] [place] [address]- 0034 Dec, [facility] [address] [id number] [place] [address]- 8699 Nov, [facility] [place] [facility] [address] [id number] [place] [address]- 9166 Oct, [facility] [address] [id number] [place] [address]- 2600 Oct, [facility] [address] [id number] [place] [address]- 0046 September, [facility] [address] [id number] [place] [address]- 9121 September, [facility] [address] [id number] [place] [address]- 6709 September, [facility] [address] [id number] [place] [address]- 2644 Aug, [facility] [address] [id number] [place] [address]- 6029 Aug, [facility] [address] [id number] [place] [address]- 7984 Aug, [facility] [place] [facility] [address] [id number] [place] [address]- 9072 Aug, [facility] [place] [facility] [address] [id number] [place] [address]- 8734 Jul, [facility] [place] [facility] [address] [id number] [place] [address]- 5627 Jul, [facility] [address] [id number] [place] [address]- 3488 Jul, [facility] [place] [facility] [address] [id number] [place] [address]- 9628 15 Jul, 2012 [facility] [place] [facility] [address] [id number] [place] [address]- 8769 14 Jul, 2012 [facility] [place] [facility] [address] [id number] [place] [address]- 4566 13 Jul, 2012 [facility] [place] [facility] [address] [id number] [place] [address]- 1602 13 Jul, 2012 [facility] [place] [facility] [address] [id number] [place] [address]- 4004 Jun, [facility] [place] [facility] [address] [id number] [place] [address]- 0996 Jun, [facility] [address] [id number] [place] [address]- 3239 Jun, [facility] [place] [facility] [address] [id number] [place] [address]- 6050 Jun, [facility] [place] [facility] [address] [id number] [place] [address]- 2445 May, [facility] [place] [facility] [address] [id number] [place] [address]- 4287 May, [facility] [place] [facility] [address] [id number] [place] [address]- 0224 May, [facility] [place] [facility] [address] [id number] [place] [address]- 6507 May, [facility] [place] [facility] [address] [id number] [place] [address]- 4821 May, [facility] [place] [facility] [address] [id number] [place] [address]- 2416 Apr, [facility] [place] [facility] [address] [id number] [place] [address]- 2979 Apr, [facility] [place] [facility] [address] [id number] [place] [address]- 7347 Mar, [facility] [place] [facility] [address] [id number] [place] [address]- 7174 Mar, [facility] [place] [facility] [address] [id number] [place] [address]- 5565 Mar, [facility] [place] [facility] [address] [facility] [id number] [place] [address]- 0208 Mar, [facility] [place] [facility] [address] [id number] [place] [address]- 8120 Mar, [facility] [place] [facility] [address] [facility] [id number] [place] [address], [place] [address]- 0483 Mar, [facility] [place] [facility] [address] [facility] [id number] [place] [address]- 9089 Mar, [facility] [place] [facility] [id number] [address]- 4422 Mar, [facility] [place] [facility] [address] [facility] [id number] [place] [address]- 3239 Mar, [facility] [place] [facility] [address] [id number] [address]- 8136 Mar, [facility] [place] [facility] [address] [id number] [address]- 9455 Feb, [facility] [place] [facility] [address] [facility] [id number] [place] [address]- 6392 Feb, [facility] [place] [facility] [address] [facility] [id number] [place] [address]- 4771 Feb, [facility] [place] [facility] [address] [id number] [place] [address]- 4296 Feb, [facility] [place] [facility] [address] [facility] [id number] [place] [address]- 0952 Feb, [facility] [place] [facility] [address] [id number] [address]- 4775 Feb, [facility] [place] [facility] [address] [id number] [place] [address]- 1577 Feb, [facility] [place] [facility] [address] [id number] [place] [address]- 7695 Jan, [facility] [place] [facility] [address] [id number] [place] [address]- 4396 Jan, [facility] [place] [facility] [address] [id number] [place] [address]- 2256 Dec, [facility] [place] [facility] [address] [id number] [place] [address]- 3498 Dec, [facility] [place] [facility] [address] [id number] [place] [address]- 5473 Dec, [facility] [place] [facility] [address] [id number] [place] [address]- 1935 Dec, [facility] [place] [facility] [address] [id number] [place] [address] Dec, [facility] [place] [facility] [address] [id number] [place] [address] Dec, [facility] [place] [facility] [address] [id number] [place] [address] Nov, [facility] [place] [facility] [address] [id number] [place] [address] Nov, [facility] [place] [facility] [address] [id number] [place] [address] Nov, [facility] [place] [facility] [address] [id number] [place] [address] Nov, [facility] [place] [facility] [address] [id number] [place] [address] September, [facility] [place] [facility] [address] [id number] [place] [address] September, [facility] [place] [facility] [address] [id number] [place] [id number] September, [facility] [place] [id number] [address] Jul, [facility] [place] [id number] [address] 29 Jun, 2011 [facility] [place] [id number] [address] Jun, [facility] [place] [id number] [address] Jun, [facility] [place] [id number] [address] Apr, [facility] [place] [id number] [address] Mar, [facility] [place] [id number] [address] Mar, [facility] [place] [id number] [address] Feb, [facility] [place] [id number] [address] Feb, [facility] [place] [id number] [address] Feb, [facility] [place] [id number] [address] Jul, [facility] [place] [id number] [address] Feb, IMMUNIZATIONS No Known Immunizations SOCIAL HISTORY Never Assessed REASON FOR VISIT Requests return call PLAN OF CARE VITAL SIGNS MEDICATIONS Unknown [...]
--- OUTSIDE RECORDS SUMMARY | 2018-02-02 23:40 | XMS REPORT ---
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 Name Role Phone MACY TAMAYO Unavailable PROBLEMS Type Condition ICD9-CM Code UXU81-HX Code Onset Dates Condition Status SNOMED Code Problem Plantar wart of both feet B07.0 Active [id number] Problem Controlled type 2 diabetes mellitus without complication, without long -term current use of insulin E11.9 Active 336342247 Problem Lumbago with sciatica, left side M54.42 Active 961239071 Problem Lumbago with sciatica, right side M54.41 Active 768565777 Problem Morbid (severe) obesity due to excess calories E66.01 Active 675819886 Problem Body mass index (BMI) of 45.0-49.9 in adult Z68.42 Active 935691713 Problem Tachycardia with heart rate 121-140 beats per minute R00.0 Active 5498543 Problem Dermatomyositis M33.90 Active 974232332 Problem Enlarged thyroid gland E04.9 Active 1730267 Problem Allergic rhinitis due to pollen J30.1 Active 03917224 Problem Mood disorder F39 Active 83460284 Problem Menopause Z78.0 Active 820862043 Problem Anxiety F41.9 Active 84124723 Problem Other chronic pain G89.29 Active 93191024 Problem Diabetes type 2, controlled E11.9 Active 02343052 Problem Arthritis M19.90 Active 0120116 Problem Osteoarthritis of right knee, unspecified osteoarthritis type M17.9 Active 447563884 Problem Plantar warts B07.0 Active 21460516 ALLERGIES Substance Reaction Event Type Date Status Fluarix Quadrivalent vomiting Drug Allergy Oct, Active Zoloft makes very angry Drug Allergy Oct, Active Fluarix vomiting Drug Allergy Oct, Active Aspirin rash Drug Allergy Oct, Active Latex, Natural Rubber rash Non Drug Allergy Oct, Active ENCOUNTERS Encounter Location Date Diagnosis [facility] [id number] [place] [address] 55609- 6349 28 Jan, 2018 [facility] [id number] [place] [address] 50347- 2969 14 Jan, 2018 [facility] [id number] [place] [address] 48926- 8902 05 Jan, 2018 [facility] [id number] [place] [address] 46467- 0793 Dec, [facility] [id number] [place] [address] 16246- 9193 Dec, [facility] [id number] [place] [address] 82715- 6882 Dec, [facility] [id number] [place] [address] 63672- 5739 Dec, Acute non-recurrent maxillary sinusitis J01.00 [facility] [id number] [place] [address] 92208- 8232 Dec, Lumbago with sciatica, right side M54.41 and Lupus erythematosus L93.0 [facility] [id number] [place] [address] 43304- 7508 Dec, Mood disorder F39 [facility] [id number] [place] [address] 54844- 8829 Dec, Mood disorder F39 [facility] [id number] [place] [address] 72302- 9144 Dec, [facility] [id number] [place] [address] 03530- 3781 Dec, Acute right ankle pain M25.571 [facility] [id number] [place] [address] 32747- 4186 Nov, Lumbar radiculopathy M54.16 [facility] [id number] [place] [address] 42476- 5293 Nov, [facility] [address], [place] [address]- 7871 Nov, Mood disorder F39 [facility] [id number] [place] [address] 73764- 4227 Nov, Lumbago with sciatica, right side M54.41 and Other chronic pain G89.29 [facility] [id number] [place] [address] 67417- 2585 Nov, Acute right ankle pain M25.571 [facility] [id number] [place] [address] 92150- 2295 Nov, [facility] [id number] [place] [address] 73584- 9351 Oct, [facility] [id number] [place] [address] 75392- 7895 Oct, Plantar wart of both feet B07.0 [facility] [id number] [place] [address] 04758- 6469 Oct, [facility] [id number] [place] [address] 66881- 1868 Oct, Acute right ankle pain M25.571 and Plantar wart of both feet B07.0 [facility] [id number] [place] [address] 22393- 3665 September, Other chronic pain G89.29 [facility] [id number] [place] [address] 19301- 0039 September, Other chronic pain G89.29 [facility] [id number] [place] [address] 90411- 3707 September, Other chronic pain G89.29 [facility] [id number] [place] [address] 43217- 4073 Aug, Mood disorder F39 [facility] [id number] [place] [address] 28936- 1077 Aug, Other chronic pain G89.29 ; Controlled type 2 diabetes mellitus without complication, without long-term current use of insulin E11.9 ; Low back pain M54.5 and Tinea corporis B35.4 [facility] [place] [id number] [place] [address] 82539- 4041 Aug, Mood disorder F39 and Anxiety F41.9 [place] [address] 02602- 5636 Aug, Mood disorder F39 and Anxiety F41.9 [place] [address] 10008- 4218 Jul, [facility] [address] [address] -[address]01 Jul, Scabies B86 and BMI 45.0-49.9, adult Z68.[address] 30582- 2099 Jul, [place] [address] 34918- 0156 Jul, Mood disorder F39 and Anxiety F41.9 [place] [address] 64867- 5576 Jul, [facility] [place] [address] 97745 -6344 27 Jun, 2017 Bronchitis J40 ; Dark urine R82.99 and BMI 45.0-49.9, adult Z68.42 [place] [address] 85984- 2508 14 Jun, 2017 Acute pain of right shoulder M25.511 and Acute pain of right knee M25.561 [place] [address] 02586- 6330 May, BMI 40.0-44.9, adult Z68.41 ; Controlled type 2 diabetes mellitus without complication, without long-term current use of insulin E11.9 ; Muscle cramping R25.2 ; Hot flashes R23.2 ; Mood disorder F39 ; Anxiety F41.9 and Morbid (severe) obesity due to excess calories E66.01 [address] [place] [address] 96417- 3357 May, BMI 40.0-44.9, adult Z68.41 ; Controlled type 2 diabetes mellitus without complication, without long-term current use of insulin E11.9 ; Muscle cramping R25.2 and Hot flashes R23.2 [place] [id number] [place] [address] 06797- 3907 May, Tachycardia with heart rate 121-140 beats per minute R00.0 ; Morbid (severe) obesity due to excess calories E66.01 ; Diabetes type 2, controlled E11.9 and Enlarged thyroid gland E04.9 [place] [id number] [place] [address] 95296- 0630 May, Encounter for well woman exam with [...] Dysuria R30.0 and Screening breast examination Z12.31 [place] [id number] [place] [address] 07942- 9851 Apr, Mood disorder F39 ; Other chronic pain G89.29 and Anxiety F41.9 [place] [id number] [place] [address] 15531- 8415 Apr, Lumbago with sciatica, left side M54.42 and Other chronic pain G89.29 [place] [id number] [place] [address] 77182- 9831 Apr, Lupus erythematosus L93.0 [place] [id number] [place] [address] 19335- 9917 Mar, Plantar wart of both feet B07.0 [facility] [id number] [place] [address] 87578- 9176 Mar, Lupus erythematosus L93.0 and Sinus drainage J34.89 [facility] [id number] [place] [address] 01644- 3836 Mar, Mood disorder F39 ; Other chronic pain G89.29 and Anxiety F41.9 [facility] [id number] [place] [address] 44660- 1468 Mar, Mood disorder F39 ; Arthritis M19.90 and Plantar warts B07.0 [facility] [id number] [place] [address] 47720- 2986 Feb, Lupus erythematosus L93.0 [facility] [id number] [place] [address] 17496- 5926 Feb, Other chronic pain G89.29 [facility] [id number] [place] [address] 70103- 5114 Feb, Mood disorder F39 and Anxiety F41.9 [facility] [id number] [place] [address] 11335- 4788 Jan, [facility] [id number] [place] [address] 16895- 9669 Jan, Mood disorder F39 [facility] [id number] [place] [address] 83829- 8287 Dec, Nail, ingrown L60.0 [facility] [id number] [place] [address] 09973- 8307 Dec, Nail, ingrown L60.0 [facility] [id number] [place] [address] 38594- 2275 Nov, Mood disorder F39 and Anxiety F41.9 [facility] [address] [place] [address]- 4713 Nov, Sinus drainage J34.89 ; Hot flashes R23.2 ; Anxiety F41.9 and Diabetes type 2, controlled E11.9 [facility] [id number] [place] [address] 29101- 4487 Nov, Nail, ingrown L60.0 [facility] [id number] [place] [address] 06264- 6931 Oct, Anxiety F41.9 and Mood disorder F39 [facility] [id number] [place] [address] 99646- 5252 Oct, Nail, ingrown L60.0 and Anxiety F41.9 [facility] [id number] [place] [address] 94414- 4304 Oct, Lupus erythematosus L93.0 [facility] [id number] [place] [address] 09164- 0382 September, [facility] [id number] [place] [address] 21623- 2690 September, [facility] [id number] [place] [address] 46614- 2770 September, Lupus erythematosus L93.0 [facility] [id number] [place] [address] 32422- 7841 Aug, [facility] [id number] [place] [address] 93469- 1762 Aug, Mood disorder F39 and Anxiety F41.9 [facility] [id number] [place] [address] 74177- 9377 Aug, Lupus erythematosus L93.0 ; Diabetes type 2, controlled E11.9 and Localized edema R60.0 [facility] [id number] [place] [address] 65902- 3590 Aug, [facility] [id number] [place] [address] 80449- 0466 Jul, Anxiety F41.9 and Mood disorder F39 [place] [id number] [place] [address] 46010- 9661 10 Jul, 2016 Diabetes type 2, controlled E11.9 [place] [id number] [place] [address] 98024- 2955 13 Jun, 2016 Anxiety F41.9 [place] [id number] [place] [address] 53998- 5309 May, [place] [id number] [place] [address] 66049- 2439 May, [place] [id number] [place] [address] 39374- 9525 May, Nausea R11.0 ; Other chronic pain G89.29 and Pain in right knee M25.561 [place] [id number] [place] [address] 60977- 5223 May, [place] [id number] [place] [address] 07119- 7321 Apr, Tear of medial meniscus of right knee, current, unspecified tear type, subsequent encounter S83.241D and Tear of lateral meniscus of right knee, current, unspecified tear type, subsequent encounter S83.281D [place] [id number] [place] [address] 30728- 3538 Apr, Anxiety F41.9 and Mood disorder F39 [place] [id number] [place] [address] 19032- 7360 Apr, Anxiety F41.9 [place] [id number] [place] [address] 60609- 5144 Apr, [place] [id number] [place] [address] 20776- 1264 Mar, [place] [id number] [place] [address] 03494- 2743 11 Nov, 2016 Lupus erythematosus L93.0 and Diabetes type 2, controlled E11.9 [facility] [id number] [place] [address] 46088- 2906 Mar, Mood disorder F39 [facility] [id number] [place] [address] 25215- 3587 Mar, Tear of lateral meniscus of right knee, current, unspecified tear type, initial encounter S83.281A and Osteoarthritis of right knee, unspecified osteoarthritis type M17.9 [facility] [id number] [place] [address] 39229- 2107 Mar, [facility] [address] 54310- 7059 Feb, Mood disorder F39 [facility] [id number] [place] [address] 66414- 2518 Feb, Rash R21 [facility] [address] 52723- 0465 Feb, [facility] [id number] [place] [address] 45563- 5313 Jan, Other chronic pain G89.29 and Muscle spasm M62.838 [facility] [id number] [place] [address] 41395- 7554 Jan, Mood disorder F39 [facility] [id number] [place] [address] 53891- 4192 Jan, Pain in right knee M25.561 ; Other chronic pain G89.29 and Muscle spasm M62.838 [facility] [id number] [place] [address] 06859- 6479 Dec, [facility] [id number] [place] [address] 60717 2546 Dec, [facility] [id number] [place] [address] 85194- 5634 Nov, [facility] [address] [place] [address]- 2499 Nov, Mood disorder F39 [place] [id number] [place] [address] 19086- 5363 Nov, Diabetes type 2, controlled E11.9 ; Bronchitis J40 ; Edema, unspecified type R60.9 ; Weight gain R63.5 and Right knee pain, unspecified chronicity M25.561 [place] [id number] [place] [address] 61745- 5283 Oct, Mood disorder F39 [place] [id number] [place] [address] 28488- 4890 Oct, Lupus erythematosus L93.0 and Bilateral edema of lower extremity R60.0 [place] [id number] [place] [address] 32779- 1261 Oct, Mood disorder F39 and Anxiety F41.9 [place] [id number] [place] [address] 66205- 9249 September, Mood disorder F39 ; Anxiety F41.9 and Anger reaction R45.4 [place] [id number] [place] [address] 62177- 0655 September, Diabetes type 2, controlled E11.9 ; Edema, unspecified type R60.9 and Fatigue, unspecified type R53.83 [place] [id number] [place] [address] 01975- 3494 Aug, Mood disorder F39 and Generalized anxiety disorder F41.1 [place] [id number] [place] [address] 83653- 0221 Aug, Diabetes type 2, controlled E11.9 ; Sinusitis J32.9 and Mood disorder F39 [place] [id number] [place] [address] 59140- 7081 Aug, Lupus erythematosus L93.0 [place] [id number] [place] [address] 78063- 1959 14 Aug, 2015 [place] [address] [address]- 4438 Aug, [facility] [id number] [place] [address] 48677 2546 Jul, Diabetes type 2, controlled E11.9 [facility] [id number] [place] [address] 45526 2546 Jul, Mood disorder F39 and Depression F32.9 [facility] [id number] [place] [address] 36482- 8176 Jul, Lupus erythematosus L93.0 and Diabetes type 2, controlled E11.9 [facility] [id number] [place] [address] 15955 2546 Jul, Mood disorder F39 and Anxiety F41.9 [facility] [id number] [place] [address] 85585- 9336 Jul, [facility] [id number] [place] [address] 51604 2545 Jul, [facility] [id number] [place] [address] 29335- 7197 Jun, Mood disorder F39 and Anxiety F41.9 [facility] [id number] [place] [address] 43737- 3455 Jun, Mood disorder F39 [facility] [id number] [place] [address] 88423 2546 18 Jun, 2015 [facility] [id number] [place] [address] 38095 254 15 Jun, 2015 [facility] [id number] [place] [address] 07043- 2336 08 Jun, 2015 Mood disorder F39 [facility] [id number] [place] [address] 21730- 6656 04 Jun, 2015 [facility] [id number] [place] [address] 35365- 6243 May, [facility] [address] [address]- 3513 May, [facility] [address] [place] [address]- 3292 May, [facility] [address] [address]- 7234 May, [facility] [id number] [place] [address] 71920- 4086 May, Anxiety F41.9 ; Dermatomyositis M33.90 and Diabetes type 2, controlled E11.9 [facility] [id number] [place] [address] 69742 -0271 May, Sinusitis J32.9 and Cough R05 [facility] [id number] [place] [address] 79800- 0490 May, Mood disorder F39 [facility] [id number] [place] [address] 48425- 0723 May, Adjustment disorder with mixed anxiety and depressed mood F43.23 [facility] [id number] [place] [address] 76449- 3322 Apr, [facility] [address], [place] [address]- 2486 Apr, [facility] [id number] [place] [address] 45753- 2956 Apr, Generalized anxiety disorder F41.1 and Mood disorder F39 [facility] [address] [address]- 2945 Mar, [facility] [id number] [place] [address] 42022- 0912 Mar, [facility] [address] [address]- 0060 Mar, [facility] [id number] [place] [address] 25733- 3580 Mar, Mood disorder F39 [place] [id number] [place] [address] 74696- 0444 Feb, [facility] [id number] [place] [address] 00533- 2107 Feb, Diabetes E11.9 and Bronchitis J40 [place] [address] 40101- 9138 Feb, [place] [address] [id number] [place] [address] 93150- 9813 Feb, [place] [address] [place] [id number] [place] [address] 93762- 6257 Feb, Major depression, recurrent, full remission F33.42 and KELLY ( generalized anxiety disorder) F41.1 [place] [address] 94070- 9784 Feb, [place] [address] [id number] [place] [address] 31187- 9247 Feb, Single major depressive episode, in partial or unspecified remission F32.5 [place] [address] [id number] [place] [address] 28801- 3634 Jan, Fatigue 780.79 [place] [address] [id number] [place] [address] 97549- 0340 Jan, [place] [id number] [place] [address] 70967- 2619 Jan, Diabetes with other specified manifestations, type II or unspecified type, not stated as uncontrolled 250.80 [place] [address] 57720- 1069 Jan, [place] [address] [place] [id number] [place] [address] 34551- 6549 Dec, Hot flashes 627.2 ; Memory loss 780.93 and Joint pain 719.40 [place] [id number] [place] [address] 10218- 0517 Dec, Major depression, recurrent 296.30 ; Generalized anxiety disorder 300.02 ; Adjustment disorder with depressed mood 309.0 and No condition on [place] II V71.09 [place] [address] [id number] [place] [address] 28125- 7174 Dec, [place] [address] [place] [id number] [place] [address] 17153- 1288 Nov, Cognitive and neurobehavioral dysfunction 294.9 ; Major depressive disorder, recurrent episode, moderate degree 296.32 and Anxiety state , unspecified 300.00 [place] [id number] [place] [address] 02165- 0115 Nov, [place] [id number] [place] [address] 33851- 8257 Nov, Diabetes with other specified manifestations, type II or unspecified type, not stated as uncontrolled 250.80 and Bronchitis [address] [place] [id number] [place] [address] 21032- 3607 Nov, Major depressive disorder, recurrent episode, moderate 296.32 and Anxiety disorder, unspecified 300.00 [place] [id number] [place] [address] 83457- 0114 Nov, Anxiety, generalized 300.02 ; Intermittent explosive disorder 312.34 ; No condition on [place] II V71.09 and No condition on axis III V71.09 [place] [id number] [place] [address] 07810- 2281 Oct, Diabetes with other specified manifestations, type II or unspecified type, not stated as uncontrolled 250.80 ; Urinary tract infection, site not specified 599.0 and Bronchitis [id number] [place] [address] 50362- 7735 Oct, Intermittent explosive disorder 312.34 ; Bipolar 1 disorder , depressed, moderate 296.52 ; Major depression, chronic 296.20 ; No condition on [place] II V71.09 and No condition on axis III V71.09 [facility] [id number], [place] [address] Oct, 2014 Major depressive disorder, recurrent episode, moderate 296.32 ; Anxiety state 300.00 ; Cognitive decline 294.9 and No condition on [place] II V71.09 [facility] [id number] [place] [address] [phone]- 9480 Oct, [facility] [id number] [place] [address] 31463- 2428 Oct, Major depressive disorder, recurrent episode, moderate 296.32 ; Anxiety disorder, unspecified 300.00 and Persistent disorder of initiating or maintaining sleep 307.42 [place] [id number] [place] [address] 25791- 3928 September, Diabetes with other specified manifestations, type II or unspecified type, not stated as uncontrolled 250.80 ; Memory loss 780.93 and Cognitive complaints 799.59 [facility] [id number] [place] [address] 77846- 2099 September, No condition on [place] II V71.09 ; Major depression, recurrent 296.30 and Persistent mood [affective] disorder, unspecified 296.90 [facility] [id number] [place] [address] 40527- 6542 Aug, [facility] [id number], [place] [address] Aug, [facility] [id number] [place] [address] 33596- 1577 Aug, [facility] [id number] [place] [address]254 Jul, [facility] [id number] [place] [address]- 6936 Jul, [facility] [id number] [place] [address] 06986- 4159 Jul, [facility] [address] [place] [address]- 6249 Jul, 2014 [facility] [place] [facility] [address] [id number] [place] [address] 5139 Jul, 2014 [facility] [place] [facility] [address] [id number] [place] [address]- 1663 Jun, 2014 [facility] [place] [facility] [address] [facility] [id number] [place] [address]- 0305 Jun, 2014 [facility] [place] [facility] [address] [id number] [place] [address]- 5214 Jun, 2014 [facility] [place] [facility] [address] [id number] [place] [address]- 3246 Jun, 2014 [facility] [place] [facility] [address] [facility] [id number] [place] [address]- 4265 Jun, 2014 [facility] [place] [facility] [address] [id number] [place] [address] 7364 Jun, 2014 [facility] [place] [facility] [address] [facility] [id number] [place] [address]- 6837 Jun, 2014 [facility] [place] [facility] [address] [id number] [place] [address]- 3133 Jun, 2014 [facility] [place] [facility] [address] [facility] [id number] [place] [address]- 8450 Jun, 2014 [facility] [place] [facility] [address] [facility] [id number] [place] [address]- 3728 Jun, 2014 [facility] [place] [facility] [address] [facility] [id number] [place] [address]- 9053 Jun, 2014 [facility] [place] [facility] [address] [facility] [id number] [place] [address]- 9490 Jun, 2014 [facility] [place] [facility] [address] [facility] [id number] [place] [address]- 1411 Jun, 2014 [facility] [place] [facility] [address] [facility] [id number] [place] [address]- 1286 May, [facility] [place] [facility] [address] [id number] [place] [address] May, [facility] [place] [facility] [address] [id number] [place] [address]- 1328 Apr, [facility] [place] [facility] [address] [id number] [place] [address]- 3263 Apr, [facility] [place] [facility] [address] [id number] [place] [address]- 6031 Apr, [facility] [place] [facility] [address] [id number] [place] [address]- 9225 Apr, [facility] [place] [facility] [address] [id number] [place] [address]- 1824 Apr, [facility] [place] [facility] [address] [id number] [place] [address]- 6149 Apr, [facility] [place] [facility] [address] [id number] [place] [address]- 5128 Apr, [facility] [place] [facility] [address] [id number] [place] [address]- 4097 Apr, [facility] [place] [facility] [address] [id number] [place] [address]- 2735 Apr, [facility] [place] [facility] [address] [id number] [place] [address]- 4458 Apr, [facility] [place] [facility] [address] [id number] [place] [address]- 6223 Apr, [facility] [place] [facility] [address] [id number] [place] [address]- 2619 Apr, [facility] [place] [facility] [address] [id number] [place] [address]- 3864 Apr, [facility] [place] [facility] [address] [id number] [place] [address]- 5117 Apr, [facility] [place] [facility] [address] [id number] [place] [address]- 7129 Apr, [facility] [place] [facility] [address] [id number] [place] [address]- 9692 Apr, [facility] [place] [facility] [address] [id number] [place] [address]- 5626 Apr, [facility] [place] [facility] [address] [id number] [place] [address]- 6547 Apr, [facility] [place] [facility] [address] [id number] [place] [address]- 2041 Apr, [facility] [place] [facility] [address] [id number] [place] [address]- 2356 Apr, [facility] [place] [facility] [address] [id number] [place] [address]- 8472 Mar, [facility] [place] [facility] [address] [id number] [place] [address]- 0300 Mar, [facility] [place] [facility] [address] [id number] [place] [address]- 0460 Mar, [facility] [place] [facility] [address] [id number] [place] [address]- 9567 Mar, [facility] [place] [facility] [address] [id number] [place] [address]- 6327 Mar, [facility] [place] [facility] [address] [id number] [place] [address]- 4453 Mar, [facility] [place] [facility] [address] [id number] [place] [address]- 4314 Mar, [facility] [place] [facility] [address] [id number] [place] [address]- 2771 Mar, [facility] [place] [facility] [address] [id number] [place] [address]- 5834 Mar, [facility] [place] [facility] [address] [id number] [place] [address]- 0786 Mar, [facility] [place] [facility] [address] [id number] [place] [address]- 7552 Mar, [facility] [place] [facility] [address] [id number] [place] [address]- 4539 Mar, [facility] [place] [facility] [address] [id number] [place] 5737 Mar, [facility] [place] [facility] [address] [id number] [place] [address]- 1772 Feb, [facility] [place] [facility] [address] [id number] [place] [address]- 1469 Feb, [facility] [place] [facility] [address] [id number] [place] [address]- 6418 Feb, [facility] [place] [facility] [address] [id number] [place] [address]- 9564 Feb, [facility] [place] [facility] [address] [id number], [place] [address]- 4618 Feb, [facility] [place] [facility] [address] [id number] [place] [address]- 1652 Feb, [facility] [place] [facility] [address] [id number] [address]- 2591 Feb, [facility] [place] [facility] [address] [id number], [place] [address]- 0300 Feb, [facility] [place] [facility] [address] [id number], [place] [address]- 2011 Feb, [facility] [place] [facility] [address] [id number], [place] [address]- 6872 Feb, [facility] [place] [facility] [address] [id number], [place] [address]- 7329 Feb, [facility] [place] [facility] [address] [id number] 5090 Feb, [facility] [place] [facility] [address] [id number], [place] [address]- 3930 Feb, [facility] [place] [facility] [address] [id number] [place] [address]- 8019 Feb, [facility] [place] [facility] [address] [id number] [place] [address]- 1278 Feb, [facility] [place] [facility] [address] [id number] [place] [address]- 6017 Jan, [facility] [place] [facility] [address] [id number] [place] [address]- 4033 08 Jan, 2014 [facility] [place] [facility] [address] [id number] [place] [address]- 0136 Jan, [facility] [place] [facility] [address] [id number] [place] [address]- 2751 Jan, [facility] [place] [facility] [address] [id number] [place] [address]- 2612 Jan, [facility] [place] [facility] [address] [id number] [place] [address]- 7304 Dec, [facility] [place] [facility] [address] [id number] [place] [address]- 0753 Dec, [facility] [place] [facility] [address] [id number] [place] [address]- 9528 Dec, [facility] [place] [facility] [address] [id number] [place] [address]- 0133 Dec, [facility] [place] [facility] [address] [id number] [place] [address]- 5472 Nov, [facility] [place] [facility] [address] [id number] [place] [address]- 4735 Nov, [facility] [place] [facility] [address] [id number] [place] [address]- 6795 Nov, [facility] [place] [facility] [address] [id number] [place] [address]- 5825 Nov, [facility] [place] [facility] [address] [id number] [place] [address]- 2546 Nov, [facility] [place] [facility] [address] [id number] [place] [address]- 9077 Nov, [facility] [place] [facility] [address] [id number] [place] [address]- 0016 Nov, [facility] [place] [facility] [address] [id number] [place] [address]- 7697 Nov, [facility] [place] [facility] [address] [id number] [place] [address]- 8528 Nov, [facility] [place] [facility] [address] [id number] [place] [address]- 8584 Nov, [facility] [place] [facility] [address] [id number] [place] [address]- 3147 Oct, [facility] [place] [facility] [address] [id number] [place] [address]- 6928 Oct, [facility] [place] [facility] [address] [id number] [place] [address]- 7154 September, [facility] [place] [facility] [address] [id number] [place] [address]- 3755 September, [facility] [place] [facility] [address] [id number] [place] [address]- 4381 September, [facility] [place] [facility] [address] [id number] [place] [address]- 7314 September, [facility] [place] [facility] [address] [id number] [place] [address]- 7748 16 Aug, 2013 [facility] [place] [facility] [address] [id number] [place] [address]- 4293 Aug, [facility] [place] [facility] [address] [id number] [place] [address]- 4016 Aug, [facility] [place] [facility] [address] [id number] [place] [address]- 5098 24 Jul, 2013 [facility] [place] [facility] [address] [id number] [place] [address]- 7817 24 Jul, 2013 [facility] [place] [facility] [address] [id number] [place] [address]- 1982 14 Jul, 2013 [facility] [place] [facility] [address] [id number] [place] [address]- 7047 14 Jul, 2013 [facility] [place] [facility] [address] [id number] [place] [address]- 9604 20 May, 2013 [facility] [place] [facility] [address] [id number] [place] [address]- 0790 17 May, 2013 [facility] [place] [facility] [address] [id number] [place] [address]- 3575 17 May, 2013 [facility] [place] [facility] [address] [id number] [place] [address]- 8800 15 Mar, 2013 [facility] [place] [facility] [address] [id number] [place] [address]- 2932 15 Mar, 2013 [facility] [place] [facility] [address] [id number] [place] [address]- 6085 Mar, [facility] [place] [facility] [address] [id number] [place] [address]- 1976 Mar, [facility] [place] [facility] [address] [id number] [address]- 2111 16 Feb, 2013 [facility] [place] [facility] [address] [id number], [place] [address]- 0812 16 Feb, 2013 [facility] [place] [facility] [address] [id number] [place] [address]- 1242 04 Feb, 2013 [facility] [place] [facility] [address] [id number], [place] [address]- 6563 16 Jan, 2013 [facility] [place] [facility] [address] [id number] [place] [address]- 0453 12 Jan, 2013 [facility] [place] [facility] [address] [id number] [place] [address]- 1066 Jan, [facility] [address] [id number] [place] [address]- 5979 Dec, [facility] [address] [id number] [place] [address]- 4853 Dec, [facility] [address] [id number] [place] [address]- 5796 Dec, [facility] [address] [id number] [place] [address]- 1307 Dec, [facility] [address] [id number] [place] [address]- 5781 Nov, [facility] [address] [id number] [place] [address]- 9867 Oct, [facility] [address] [id number] [place] [address]- 3672 Oct, [facility] [address] [id number] [place] [address]- 1356 September, [facility] [address] [id number] [place] [address]- 1671 September, [facility] [address] [id number] [place] [address]- 1569 September, [facility] [address] [id number] [place] [address]- 8291 Aug, [facility] [address] [id number] [place] [address]- 3550 Aug, [facility] [address] [id number] [place] [address]- 1104 Aug, [facility] [place] [facility] [address] [id number] [place] [address]- 5908 Aug, [facility] [address] [id number] [place] [address]- 1170 Jul, [facility] [address] [id number] [place] [address]- 1065 25 Jul, 2012 [facility] [place] [facility] [address] [id number] [place] [address]- 9662 21 Jul, 2012 [facility] [place] [facility] [address] [id number] [place] [address]- 3947 15 Jul, 2012 [facility] [place] [facility] [address] [id number] [place] [address]- 4442 14 Jul, 2012 [facility] [place] [facility] [address] [id number] [place] [address]- 5811 13 Jul, 2012 [facility] [place] [facility] [address] [id number] [place] [address]- 4051 Jul, [facility] [place] [facility] [address] [id number] [place] [address]- 8864 06 Jun, 2012 [facility] [place] [facility] [address] [id number] [place] [address]- 1166 Jun, [facility] [place] [facility] [address] [id number] [place] [address]- 0213 Jun, [facility] [place] [facility] [address] [id number] [place] [address]- 8822 Jun, [facility] [place] [facility] [address] [id number] [place] [address]- 7037 May, [facility] [place] [facility] [address] [id number] [place] [address]- 3774 May, [facility] [place] [facility] [address] [id number] [place] [address]- 7918 May, [facility] [place] [facility] [address] [id number] [place] [address]- 3330 May, [facility] [place] [facility] [address] [id number] [place] [address]- 6174 May, [facility] [place] [facility] [address] [id number], [place] [address]- 4569 Apr, [facility] [place] [facility] [address] [id number] [place] [address]- 6161 Apr, [facility] [place] [facility] [address] [id number] [place] [address]- 3759 Mar, [facility] [place] [facility] [address] [facility] [id number] [place] [address]- 5554 Mar, [facility] [place] [facility] [address] [id number] [place] [address]- 2274 Mar, [facility] [place] [facility] [address] [id number] [place] [address]- 8848 Mar, [facility] [place] [facility] [address] [facility] [id number] [place] [address]- 0501 Mar, [facility] [place] [facility] [address] [id number] [place] [address]- 7178 Mar, [facility] [place] [facility] [address] [facility] [id number] [place] [address]- 5480 Mar, [facility] [place] [facility] [address] [facility] [id number] [place] [address]- 7337 Mar, [facility] [place] [facility] [address] [facility] [id number] [place] [address]- 1232 Mar, [facility] [place] [facility] [address] [facility] [id number], [place] [address]- 6503 Mar, [facility] [place] [facility] [address] [facility] [id number], [place] [address]- 5628 Feb, [facility] [place] [facility] [address] [id number] [place] [address]- 8706 Feb, [facility] [place] [facility] [address] [facility] [id number] [place] [address]- 9945 Feb, [facility] [place] [facility] [address] [facility] [id number], [place] [address]- 7505 Feb, [facility] [place] [facility] [address] [id number] [place] [address]- 9281 Feb, [facility] [place] [facility] [address] [id number] [place] [address]- 8158 Feb, [facility] [place] [facility] [address] [id number] [place] [address]- 5126 Feb, [facility] [place] [facility] [address] [id number] [place] [address]- 6985 Jan, [facility] [place] [facility] [address] [id number] [place] [address]- 8405 Jan, [facility] [place] [facility] [address] [id number] [place] [address]- 9939 Dec, [facility] [place] [facility] [address] [id number] [place] [address]- 9324 Dec, [facility] [place] [facility] [address] [id number] [place] [address]- 9282 Dec, [facility] [place] [facility] [address] [id number] [place] [address]- 4722 Dec, [facility] [place] [facility] [address] [id number] [place] [address]- 7828 Dec, [facility] [place] [facility] [address] [id number] [place] [address]- 8224 Dec, [facility] [place] [facility] [address] [id number] [place] [address]- 6810 Nov, [facility] [place] [facility] [address] [id number] [place] [address]- 7721 Nov, [facility] [place] [facility] [address] [id number] [place] [address]- 4780 Nov, [facility] [place] [facility] [address] [id number] [place] [address]- 7986 Nov, [facility] [place] [facility] [address] [id number] [place] [address]- 3516 September, [facility] [address] [id number] [address]- 8380 September, [facility] [address], [place] [address]- 0076 September, [facility] [address], [place] [address]- 5658 Jul, [facility] [address], [place] [address]- 8134 Jun, [facility] [address], [place] [address]- 5787 Jun, [facility] [address], [place] [address]- 1336 Jun, [facility] [address], [place] [address]- 7608 Apr, [facility] [address], [place] [address]- 2608 Mar, [facility] [address], [place] [address]- 5680 Mar, [facility] [address], [place] [address]- 4816 Feb, [facility] [address], [place] [address]- 2750 Feb, [facility] [address], [place] [address]- 4450 Feb, [facility] [address], [place] [address]- 8911 Jul, [facility] [address], [place] [address]- 4672 Feb, IMMUNIZATIONS No Known Immunizations SOCIAL HISTORY Never Assessed REASON FOR VISIT Wart removal----DBennettRN PLAN OF CARE Activity Details Future/Pending Procedure WART DESTRUCT 1-14 (CRYO) VITAL SIGNS Height 62 in 2017-11-07 Weight 252 lbs 2017-11-07 Temperature 98.9 degrees Fahrenheit 2017-11-07 Heart Rate 90 bpm 2017-11-07 Respiratory Rate 20 2017-11-07 BMI 46.09 kg/m2 2017-11-07 Blood pressure systolic 136 mmHg 2017-11-07 Blood pressure diastolic 84 mmHg 2017-11-07 MEDICATIONS Medication Instructions Dosage Frequency Start Date End Date Duration Status PredniSONE 20 mg 1 tablet 24h Active Furosemide 20 MG TAKE 1 TABLET BY MOUTH ONCE DAILY 30 Active Terbinafine HCl 1 % Externally Twice a day 1 application to affected area 12h Aug, Active Cymbalta 60 mg Orally Twice a day 1 capsule 12h Aug, Active Lisinopril-Hydrochlorothiazide 20-25 MG TAKE ONE TABLET BY MOUTH ONCE DAILY 30 Active Folic Acid 1 MG TAKE ONE TABLET BY MOUTH ONCE DAILY (DO NOT TAKE ON DAYS YOU TAKE METHOTREXATE) 30 Active Benzonatate 100 MG TAKE ONE CAPSULE BY MOUTH THREE TIMES DAILY NEEDED 10 Active Methotrexate 2.5 MG Orally 1 time per week 6 Active Wisner 7.5-325 MG Orally every 6 hrs 1 tablet as needed 6h Oct, Active Spironolactone 25 MG TAKE ONE TABLET BY MOUTH ONCE DAILY 30 Active Magnesium Oxide 400 mg Orally Once a day 1 tablet as needed 24h 30 day(s) Active Lasix Active Victoza Active Glucocard Expression Test - as directed 24h Nov, 50 Active Omeprazole Active Potassium Chloride [facility] 20 MEQ TAKE ONE TABLET BY MOUTH ONCE DAILY WITH FOOD 30 Active RESULTS No Results PROCEDURES Procedure Date Ordered Result Body Site DESTRUCT LESION, 1-November 07, 2017 INSTRUCTIONS MEDICATIONS ADMINISTERED No Known Medications MEDICAL (GENERAL) HISTORY Type Description Date Medical History type II diabetes-dx'd 12/2010 Medical History dysfunctional uterine bleeding--endometrial bx 12/2010 Medical History asthma Medical History hypertension Medical History obesity Medical History anxiety Medical History autoimmune disease Surgical History x1 Hospitalization History child Hospitalization History Asthma
--- OUTSIDE RECORDS SUMMARY | 2018-02-02 23:41 | XMS REPORT ---
Author Author MACY TAMAYO Organization [facility] Address [address] [place] [address] Care Team Providers Care Wig Maker Name Role Phone MACY TAMAYO Unavailable PROBLEMS Type Condition ICD9-CM Code [id number] Code Onset Dates Condition Status SNOMED Code Problem Plantar wart of both feet B07.0 Active [id number] Problem Controlled type 2 diabetes mellitus without complication, without long -term current use of insulin E11.9 Active 909710122 Problem Lumbago with sciatica, left side M54.42 Active 584511076 Problem Lumbago with sciatica, right side M54.41 Active 111255749 Problem Morbid (severe) obesity due to excess calories E66.01 Active 479308934 Problem Body mass index (BMI) of 45.0-49.9 in adult Z68.42 Active 174320361 Problem Tachycardia with heart rate 121-140 beats per minute R00.0 Active 4018135 Problem Dermatomyositis M33.90 Active 937739437 Problem Enlarged thyroid gland E04.9 Active 0693586 Problem Allergic rhinitis due to pollen J30.1 Active 21613937 Problem Mood disorder F39 Active 33446016 Problem Menopause Z78.0 Active 851250177 Problem Anxiety F41.9 Active 49003343 Problem Other chronic pain G89.29 Active 00232301 Problem Diabetes type 2, controlled E11.9 Active 46935917 Problem Arthritis M19.90 Active 2152368 Problem Osteoarthritis of right knee, unspecified osteoarthritis type M17.9 Active 625172854 Problem Plantar warts B07.0 Active 96446046 ALLERGIES No Information ENCOUNTERS Encounter Location Date Diagnosis [facility] [id number] [address] Jan, [facility] [id number] [address] Jan, [facility] [address], [place] [address] Jan, [facility] [id number] [address] Dec, [facility] [address], [place] [address] Dec, Mood disorder F39 [facility] [id number] [place] [address] 67904- 7926 Dec, Mood disorder F39 [facility] [id number] [place] [address] 33472- 7580 Dec, [facility] [id number] [place] [address] 01055- 3333 Dec, Acute right ankle pain M25.571 [facility] [id number] [place] [address] 57364- 3274 Nov, Lumbar radiculopathy M54.16 [facility] [id number] [address] Nov, [facility] [id number] [place] [address] 51298- 4769 Nov, Mood disorder F39 [facility] [address], [place] [address] Nov, Lumbago with sciatica, right side M54.41 and Other chronic pain G89.29 [facility] [address], [place] [address] 379[address] Nov, Acute right ankle pain M25.571 [facility] [id number] [address] 8[address] Nov, [facility] [address], [place] [address]26 Oct, [facility] [address] [place] [address] Oct, Plantar wart of both feet B07.0 [address] [address] [id number] [place] [address] 81778- 1750 Oct, [place] [id number] [place] [address] 11939- 4679 Oct, Acute right ankle pain M25.571 and Plantar wart of both feet B07.0 [address] [address] 50908- 3806 September, Other chronic pain G89.29 [place] [id number] [place] [address] 30474- 2088 September, Other chronic pain G89.29 [address] 97542- 8359 September, Other chronic pain G89.29 [address] [address] [address] 61343- 1616 Aug, Mood disorder F39 [place] [id number] [place] [address] 18135- 1483 Aug, Other chronic pain G89.29 ; Controlled type 2 diabetes mellitus without complication, without long-term current use of insulin E11.9 ; Low back pain M54.5 and Tinea corporis B35.4 [place] [id number] [place] [address] 83102- 0837 Aug, Mood disorder F39 and Anxiety F41.9 [place] [id number] [place] [address] 70329- 2052 Aug, Mood disorder F39 and Anxiety F41.9 [address] 44399- 2294 Jul, [facility] [id number] [place] [address] 01007 -8258 Jul, Scabies B86 and BMI 45.0-49.9, adult Z68.42 [address] [address] [id number] [place] [address] 94763- 3431 Jul, [facility] [id number] [place] [address] 55934- 9071 Jul, Mood disorder F39 and Anxiety F41.9 [facility] [id number] [place] [address] 99942- 9992 Jul, [facility] [address] [address] Jun, Bronchitis J40 ; Dark urine R82.99 and BMI 45.0-49.9, adult Z68.42 [address] 06243- 4143 14 Jun, 2017 Acute pain of right shoulder M25.511 and Acute pain of right knee M25.561 [address] [address] 90027- 8126 May, BMI 40.0-44.9, adult Z68.41 ; Controlled type 2 diabetes mellitus without complication, without long-term current use of insulin E11.9 ; Muscle cramping R25.2 ; Hot flashes R23.2 ; Mood disorder F39 ; Anxiety F41.9 and Morbid (severe) obesity due to excess calories E66.01 [place] [id number] [place] [address] 05913- 1411 May, BMI 40.0-44.9, adult Z68.41 ; Controlled type 2 diabetes mellitus without complication, without long-term current use of insulin E11.9 ; Muscle cramping R25.2 and Hot flashes R23.2 [place] [id number] [place] [address] 20062- 8524 May, Tachycardia with heart rate 121-140 beats per minute R00.0 ; Morbid (severe) obesity due to excess calories E66.01 ; Diabetes type 2, controlled E11.9 and Enlarged thyroid gland E04.9 [address] 9[address]32- 6285 25 May, 2017 Encounter for well woman [...] Dysuria R30.0 and Screening breast examination Z12.31 [address] 97621- 5481 Apr, Mood disorder F39 ; Other chronic pain G89.29 and Anxiety F41.9 [address] 00612- 6312 Apr, Lumbago with sciatica, left side M54.42 and Other chronic pain G89.29 [address] [address] 40358- 3992 Apr, Lupus erythematosus L93.0 [address] 10081- 2386 Mar, Plantar wart of both feet B07.0 [address] [address] [address] 91698- 9740 Mar, Lupus erythematosus L93.0 and Sinus drainage J34.89 [address] [address] 74100- 4319 Mar, Mood disorder F39 ; Other chronic pain G89.29 and Anxiety F41.9 [address] [address] 27334- 0173 Mar, Mood disorder F39 ; Arthritis M19.90 and Plantar warts B07.0 [address] [address] 99964- 3512 Feb, Lupus erythematosus L93.0 [place] [id number] [place] [address] 71837- 8914 Feb, Other chronic pain G89.29 [place] [id number] [place] [address] 80332- 4446 Feb, Mood disorder F39 and Anxiety F41.9 [place] [id number] [place] [address] 78710- 7557 Jan, [place] [id number] [place] [address] 63587- 2003 Jan, Mood disorder F39 [place] [id number] [place] [address] 19476- 2659 Dec, Nail, ingrown L60.0 [place] [id number] [place] [address] 12559- 8899 Dec, Nail, ingrown L60.0 [place] [id number] [place] [address] 56603- 4256 Nov, Mood disorder F39 and Anxiety F41.9 [place] [id number] [place] [address] 92085- 2231 Nov, Sinus drainage J34.89 ; Hot flashes R23.2 ; Anxiety F41.9 and Diabetes type 2, controlled E11.9 [place] [id number] [place] [address] 13257- 0644 Nov, Nail, ingrown L60.0 [place] [id number] [place] [address] 25410- 6640 Oct, Anxiety F41.9 and Mood disorder F39 [address] [id number] [place] [address] 12821- 0403 Oct, Nail, ingrown L60.0 and Anxiety F41.9 [address] [id number] [place] [address] 76836- 8634 Oct, Lupus erythematosus L93.0 [place] [id number] [address] 3997 September, [facility] [id number] [place] [address] 48445- 3788 September, [facility] [id number] [place] [address] 43140- 5004 September, Lupus erythematosus L93.0 [facility] [id number] [place] [address] 18213- 1349 Aug, [facility] [id number] [place] [address] 59628- 9091 Aug, Mood disorder F39 and Anxiety F41.9 [facility] [id number] [place] [address] 21478- 4529 Aug, Lupus erythematosus L93.0 ; Diabetes type 2, controlled E11.9 and Localized edema R60.0 [facility] [id number] [place] [address] 43036- 5110 Aug, [facility] [id number] [place] [address] 27477- 6774 Jul, Anxiety F41.9 and Mood disorder F39 [facility] [id number] [place] [address] 58357- 9688 Jul, Diabetes type 2, controlled E11.9 [facility] [id number] [place] [address] 74194- 4658 Jun, Anxiety F41.9 [facility] [id number] [place] [address] 81540- 1591 May, [facility] [id number] [place] [address] 05008- 9313 May, [facility] [id number] [place] [address] 73334- 8864 May, Nausea R11.0 ; Other chronic pain G89.29 and Pain in right knee M25.561 [facility] [id number] [place] [address] 62109- 1584 May, [facility] [id number] [place] [address] 02441- 0173 Apr, Tear of medial meniscus of right knee, current, unspecified tear type, subsequent encounter S83.241D and Tear of lateral meniscus of right knee, current, unspecified tear type, subsequent encounter S83.281D [place] [id number] [place] [address] 65206- 8003 Apr, Anxiety F41.9 and Mood disorder F39 [place] [id number] [place] [address] 35553- 1824 Apr, Anxiety F41.9 [place] [id number] [place] [address] 19235- 1793 Apr, [place] [id number] [place] [address] 44169- 3108 Mar, [place] [id number] [place] [address] 30501- 5454 Mar, Lupus erythematosus L93.0 and Diabetes type 2, controlled E11.9 [place] [id number] [place] [address] 10291- 1077 Mar, Mood disorder F39 [address] [id number] [place] [address] 94661- 9357 Mar, Tear of lateral meniscus of right knee, current, unspecified tear type, initial encounter S83.281A and Osteoarthritis of right knee, unspecified osteoarthritis type M17.9 [facility] [id number] [place] [address] 73602- 6229 Mar, [place] [id number] [place] [address] 10662- 4167 Feb, Mood disorder F39 [place] [id number] [place] [address] 74396- 4403 Feb, Rash R21 [address], [place] [address]- 6901 Feb, [facility] [id number] [place] [address] 61606- 1520 Jan, Other chronic pain G89.29 and Muscle spasm M62.838 [facility] [id number] [place] [address] 39125- 1876 Jan, Mood disorder F39 [facility] [id number] [place] [address] 72373- 2168 Jan, Pain in right knee M25.561 ; Other chronic pain G89.29 and Muscle spasm M62.838 [facility] [id number] [place] [address] 15014- 5656 Dec, [facility] [id number] [place] [address] 20681- 6147 Dec, [facility] [id number] [place] [address] 22969- 4143 Nov, [facility] [id number] [place] [address] 45222- 3731 Nov, Mood disorder F39 [facility] [id number] [place] [address] 19293- 0627 Nov, Diabetes type 2, controlled E11.9 ; Bronchitis J40 ; Edema, unspecified type R60.9 ; Weight gain R63.5 and Right knee pain, unspecified chronicity M25.561 [facility] [address], [place] [address]- 5158 Oct, Mood disorder F39 [facility] [id number] [place] [address] 38579- 5225 Oct, Lupus erythematosus L93.0 and Bilateral edema of lower extremity R60.0 [facility] [id number] [place] [address] 63342- 9580 Oct, Mood disorder F39 and Anxiety F41.9 [facility] [id number] [place] [address] 91736- 5318 September, Mood disorder F39 ; Anxiety F41.9 and Anger reaction R45.4 [facility] [id number] [place] [address] 34395- 5700 September, Diabetes type 2, controlled E11.9 ; Edema, unspecified type R60.9 and Fatigue, unspecified type R53.83 [place] [id number] [place] [address] 99692- 1655 Aug, Mood disorder F39 and Generalized anxiety disorder F41.1 [address] [address] 23429- 7165 Aug, Diabetes type 2, controlled E11.9 ; Sinusitis J32.9 and Mood disorder F39 [place] [id number] [place] [address] 44340- 2817 Aug, Lupus erythematosus L93.0 [facility] [id number] [place] [address] 36934- 2794 Aug, [place] [address] 02385- 6632 Aug, [place] [id number] [place] [address] 63321- 5819 Jul, Diabetes type 2, controlled E11.9 [facility] [id number] [place] [address] 56483- 3609 Jul, Mood disorder F39 and Depression F32.9 [facility] [id number] [place] [address] 99056- 7683 Jul, Lupus erythematosus L93.0 and Diabetes type 2, controlled E11.9 [facility] [id number] [place] [address] 63227- 0376 Jul, Mood disorder F39 and Anxiety F41.9 [facility] [id number] [place] [address] 41103- 7317 Jul, [facility] [address], [place] [address]- 3500 Jul, [facility] [id number] [place] [address] 61163- 5972 Jun, Mood disorder F39 and Anxiety F41.9 [facility] [id number] [place] [address] 06302- 9335 Jun, Mood disorder F39 [facility] [id number] [place] [address] 75018- 3831 Jun, [facility] [id number] [place] [address] 74577- 3270 Jun, [facility] [id number] [place] [address] 17916- 1216 Jun, Mood disorder F39 [facility] [id number] [place] [address] 34250- 5478 Jun, [facility] [id number] [place] [address] 07911- 3231 May, [facility] [id number] [place] [address] 00702- 2897 May, [facility] [id number] [place] [address] 30937- 2857 May, [facility] [id number] [place] [address] 33549- 1295 May, [facility] [id number] [place] [address] 63987- 6874 May, Anxiety F41.9 ; Dermatomyositis M33.90 and Diabetes type 2, controlled E11.9 [facility] [address] [place] [address] -3329 May, Sinusitis J32.9 and Cough R05 [facility] [id number] [place] [address] 19015- 6967 May, Mood disorder F39 [facility] [id number] [place] [address] 15442- 7192 May, Adjustment disorder with mixed anxiety and depressed mood F43.23 [facility] [id number] [place] [address] 14110- 1293 Apr, [facility] [id number] [place] [address] 99494- 7664 Apr, [facility] [id number] [place] [address] 66736- 8310 Apr, Generalized anxiety disorder F41.1 and Mood disorder F39 [facility] [id number] [place] [address] 51874- 4436 Mar, [facility] [id number] [place] [address] 22292- 7169 Mar, [facility] [id number] [place] [address] 50309- 9359 Mar, [facility] [id number] [place] [address] 70157- 8856 Mar, Mood disorder F39 [facility] [id number] [place] [address] 01777- 1576 Feb, [facility] [id number] [place] [address] 87031- 0666 Feb, Diabetes E11.9 and Bronchitis J40 [facility] [id number] [place] [address] 11808- 8842 Feb, [facility] [id number] [place] [address] 89694- 8091 Feb, [facility] [id number] [place] [address] 45936- 4966 Feb, Major depression, recurrent, full remission F33.42 and KELLY ( generalized anxiety disorder) F41.1 [facility] [id number] [place] [address] 80270- 8606 Feb, [place] [id number] [place] [address] 42632- 4266 Feb, Single major depressive episode, in partial or unspecified remission F32.5 [place] [id number] [place] [address] 32417- 2622 Jan, Fatigue 780.79 [place] [address] [address]- [address] Jan, [place] [id number] [place] [address] 32320- 4068 Jan, Diabetes with other specified manifestations, type II or unspecified type, not stated as uncontrolled 250.[address] [place] [id number] [place] [address] 67725- 0508 Jan, [place] [id number] [place] [address] 09751- 1546 Dec, Hot flashes 627.2 ; Memory loss 780.93 and Joint pain 719.40 [place] [id number] [place] [address] 51312- 3669 Dec, Major depression, recurrent 296.30 ; Generalized anxiety disorder 300.02 ; Adjustment disorder with depressed mood 309.0 and No condition on Blanca II V71.09 [place] [id number] [place] [address] 05215- 9199 Dec, [place] [id number] [place] [address] 04958- 2284 Nov, Cognitive and neurobehavioral dysfunction 294.9 ; Major depressive disorder, recurrent episode, moderate degree 296.32 and Anxiety state , unspecified 300.00 [place] [id number] [place] [address] 45036- 7377 Nov, [place] [id number] [place] [address] 65409- 6430 Nov, Bronchitis 490 and Diabetes with other specified manifestations, type II or unspecified type, not stated as uncontrolled 250.80 [place] [id number] [address] Nov, Major depressive disorder, recurrent episode, moderate 296.32 and Anxiety disorder, unspecified 300.00 [place] [id number], [place] [address] Nov, Anxiety, generalized 300.02 ; Intermittent explosive disorder 312.34 ; No condition on Blanca II V71.09 and No condition on axis III V71.09 [place] [id number] [place] [address]- 0648 Oct, Diabetes with other specified manifestations, type II or unspecified type, not stated as uncontrolled 250.80 ; Urinary tract infection, site not specified 599.0 and Bronchitis [address] [place] [id number] [place] [address] 96[address]- 3064 Oct, Intermittent explosive disorder 312.34 ; Bipolar 1 disorder , depressed, moderate 296.52 ; Major depression, chronic 296.20 ; No condition on Blanca II V71.09 and No condition on axis III V71.09 [place] [id number] [place] [address]- 3224 15 Oct, 2014 Major depressive disorder, recurrent episode, moderate 296.32 ; Anxiety state 300.00 ; Cognitive decline 294.9 and No condition on Blanca II V71.09 [place] [address], [place] [address] 15[address] Oct, [place] [address] [place] [id number] [place] [address]19- 4886 04 Oct, 2014 Major depressive disorder, recurrent episode, moderate 296.32 ; Anxiety disorder, unspecified 300.00 and Persistent disorder of initiating or maintaining sleep 307.42 [place] [address] [place] [id number] [address] September, Diabetes with other specified manifestations, type II or unspecified type, not stated as uncontrolled 250.80 ; Memory loss 780.93 and Cognitive complaints 799.59 [facility] [address], [place] [address] September, No condition on Blanca II V71.09 ; Major depression, recurrent 296.30 and Persistent mood [affective] disorder, unspecified 296.90 [facility] [address] [address] Aug, [facility] [address] [place] [id number] [place] [address] 34762- 5600 Aug, [facility] [address], [place] [address] 7234 Aug, [facility] [id number] [place] [address] 255284- 8735 Jul, [facility] [address] [id number] [address] Jul, [facility] [id number] [address] 7507 Jul, [facility] [address], [place] [address]- 0820 Jul, [facility] [address] [address] Jul, [facility] [address], [place] [address]- 4273 Jun, [facility] [address] [address] Jun, [facility] [address] [address] Jun, [facility] [address] [address] Jun, [facility] [address] 8[address] Jun, [facility] [place] [facility] [address] [id number] [address] 5977 Jun, 2014 [facility] [place] [facility] [address] [id number] [place] [address]- 1014 Jun, 2014 [facility] [place] [facility] [address] [id number] [place] [address]- 4266 Jun, 2014 [facility] [place] [facility] [address] [id number] [place] [address]- 4085 Jun, 2014 [facility] [place] [facility] [address] [id number] [place] [address]- 5573 Jun, 2014 [facility] [place] [facility] [address] [id number] [place] [address]- 0865 Jun, 2014 [facility] [place] [facility] [address] [facility] [id number] [place] [address]- 8214 Jun, 2014 [facility] [place] [facility] [address] [facility] [id number] [place] [address]- 5351 Jun, 2014 [facility] [place] [facility] [address] [facility] [id number] [place] [address]- 2370 May, [facility] [place] [facility] [address] [facility] [id number] [place] [address]- 9654 May, [facility] [place] [facility] [address] [facility] [id number] [place] [address]- 8924 Apr, [facility] [place] [facility] [address] [id number] [place] [address]- 3812 Apr, [facility] [place] [facility] [address] [id number] [place] [address]- 8087 Apr, [facility] [place] [facility] [address] [id number] [place] [address]- 3142 Apr, [facility] [place] [facility] [address] [facility] [id number] [place] [address]- 4031 Apr, [facility] [place] [facility] [address] [id number] [place] [address]- 3319 Apr, [facility] [place] [facility] [address] [id number] [place] [address]- 2864 Apr, [facility] [place] [facility] [address] [id number] [place] [address]696 Apr, [facility] [place] [facility] [address] [id number] [place] [address]- 5176 15 Apr, 2014 [facility] [place] [facility] [address] [id number] [place] [address]- 3305 15 Apr, 2014 [facility] [place] [facility] [address] [id number] [place] [address]- 9566 Apr, [facility] [place] [facility] [address] [id number] [place] [address]- 5609 Apr, [facility] [place] [facility] [address] [id number] [place] [address]- 0391 Apr, [facility] [place] [facility] [address] [id number] [place] [address]- 6046 Apr, [facility] [place] [facility] [address] [id number] [place] [address]- 7232 Apr, [facility] [place] [facility] [address] [id number] [place] [address]- 0412 Apr, [facility] [place] [facility] [address] [id number] [place] [address]- 3597 Apr, [facility] [place] [facility] [address] [id number] [place] [address]- 4870 Apr, [facility] [place] [facility] [address] [id number] [place] [address]- 5559 Apr, [facility] [place] [facility] [address] [id number] [place] [address]- 9003 Apr, [facility] [place] [facility] [address] [id number] [place] [address]- 4396 Mar, [facility] [place] [facility] [address] [id number] [place] [address]- 5939 Mar, [facility] [place] [facility] [address] [id number] [place] [address]- 6555 Mar, [facility] [place] [facility] [address] [id number] [place] [address]- 1592 Mar, [facility] [place] [facility] [address] [id number] [place] [address]- 1300 Mar, [facility] [place] [facility] [address] [id number] [place] [address]- 6759 Mar, [facility] [place] [facility] [address] [id number] [place] [address]- 9445 Mar, [facility] [place] [facility] [address] [id number] [place] [address]- 9581 Mar, [facility] [place] [facility] [address] [id number] [place] [address]- 6711 Mar, [facility] [place] [facility] [address] [id number] [place] [address]- 0992 Mar, [facility] [place] [facility] [address] [id number] [place] [address]- 5437 Mar, [facility] [place] [facility] [address] [facility] [id number] [place] [address]- 7113 Mar, [facility] [place] [facility] [address] [id number] [place] [address]- 5475 Mar, [facility] [place] [facility] [address] [id number] [place] [address]- 5596 Feb, [facility] [place] [facility] [address] [id number] [place] [address]- 3959 Feb, [facility] [place] [facility] [address] [id number] [place] [address]- 8379 Feb, [facility] [place] [facility] [address] [id number] [place] [address]- 1069 Feb, [facility] [place] [facility] [address] [id number] [place] [address]- 6921 Feb, [facility] [place] [facility] [address] [id number] [place] [address]- 3610 Feb, [facility] [place] [facility] [address] [id number] [place] [address]- 3864 Feb, [facility] [place] [facility] [address] [id number] [place] [address]- 6424 Feb, [facility] [place] [facility] [address] [id number] [place] [address]- 1462 Feb, [facility] [place] [facility] [address] [id number] [place] [address]- 8720 Feb, [facility] [place] [facility] [address] [id number] [place] [address]- 8005 Feb, [facility] [place] [facility] [address] [id number] [place] [address]- 9607 Feb, [facility] [place] [facility] [address] [id number] [place] [address]- 9761 Feb, [facility] [place] [facility] [address] [id number] [place] [address]- 2557 Feb, [facility] [place] [facility] [address] [id number] [place] [address]- 5253 07 Feb, 2014 [facility] [place] [facility] [address] [id number], [place] [address]- 0953 10 Jan, 2014 [facility] [place] [facility] [address] [id number] [place] [address]- 0375 08 Jan, 2013 [facility] [place] [facility] [address] [id number] [place] [address]- 7783 08 Jan, 2013 [facility] [place] [facility] [address] [id number] [place] [address]- 0831 08 Jan, 2013 [facility] [place] [facility] [address] [id number] [place] [address]- 0479 Jan, [facility] [place] [facility] [address] [id number] [place] [address]- 1255 Dec, [facility] [place] [facility] [address] [id number] [place] [address]- 3609 Dec, [facility] [place] [facility] [address] [id number] [place] [address]- 7473 Dec, [facility] [place] [facility] [address] [id number] [place] [address]- 0865 Dec, [facility] [place] [facility] [address] [id number] [place] [address]- 7578 Nov, [facility] [place] [facility] [address] [id number] [place] [address]- 5067 Nov, [facility] [place] [facility] [address] [id number] [place] [address]- 8055 Nov, [facility] [place] [facility] [address] [id number] [place] [address]- 4157 Nov, [facility] [place] [facility] [address] [id number] [place] [address]- 9501 Nov, [facility] [place] [facility] [address] [id number] [place] [address]- 1902 Nov, [facility] [place] [facility] [address] [id number] [place] [address]- 8283 Nov, [facility] [place] [facility] [address] [id number] [place] [address]- 9109 Nov, [facility] [place] [facility] [address] [id number] [place] [address]- 5279 Nov, [facility] [place] [facility] [address] [id number] [place] [address]- 0067 Nov, [facility] [place] [facility] [address] [id number] [place] [address]- 4945 Oct, [facility] [place] [facility] [address] [id number] [place] [address]- 9988 Oct, [facility] [place] [facility] [address] [id number] [place] [address]- 5331 September, [facility] [place] [facility] [address] [id number] [place] [address]- 2966 September, [facility] [place] [facility] [address] [id number] [place] [address]- 2529 September, [facility] [place] [facility] [address] [id number] [place] [address]- 0612 September, [facility] [place] [facility] [address] [id number] [place] [address]- 2344 Aug, [facility] [place] [facility] [address] [id number] [place] [address]- 0054 Aug, [facility] [place] [facility] [address] [id number] [place] [address]- 4746 Aug, [facility] [place] [facility] [address] [id number] [place] [address]- 8162 24 Jul, 2013 [facility] [place] [facility] [address] [id number] [place] [address]- 1533 24 Jul, 2013 [facility] [place] [facility] [address] [id number] [place] [address]- 9605 Jul, [facility] [place] [facility] [address] [id number] [place] [address]- 2413 14 Jul, 2013 [facility] [place] [facility] [address] [id number] [place] [address]- 6776 May, [facility] [place] [facility] [address] [id number] [place] [address]- 3809 May, [facility] [place] [facility] [address] [id number] [place] [address]- 2381 May, [facility] [place] [facility] [address] [id number] [place] [address]- 5866 15 Mar, 2013 [facility] [place] [facility] [address] [id number] [place] [address]- 9591 15 Mar, 2013 [facility] [place] [facility] [address] [id number] [place] [address]- 7601 Mar, [facility] [place] [facility] [address] [id number] [place] [address]- 8833 Mar, [facility] [place] [facility] [address] [id number] [place] [address]- 1754 Feb, [facility] [place] [facility] [address] [id number] [place] [address]- 5049 Feb, [facility] [place] [facility] [address] [id number] [place] [address]- 7348 Feb, [facility] [place] [facility] [address] [id number] [place] [address]- 8410 Jan, [facility] [place] [facility] [address] [id number], [place] [address]- 0356 Jan, [facility] [place] [facility] [address] [id number] [place] [address]- 4452 Jan, [facility] [place] [facility] [address] [id number] [place] [address]- 3337 Dec, [facility] [place] [facility] [address] [id number], [place] [address]- 8320 Dec, [facility] [place] [facility] [address] [id number], [place] [address]- 8090 Dec, [facility] [place] [facility] [address] [id number] [place] [address]- 4452 Dec, [facility] [place] [facility] [address] [id number], [place] [address]- 0644 Nov, [facility] [place] [facility] [address] [id number] [place] [address]- 4309 Oct, [facility] [place] [facility] [address] [id number] [place] [address]- 6304 05 Oct, 2012 [facility] [address] [id number] [place] [address]- 1022 September, [facility] [address] [id number] [place] [address]- 6972 September, [facility] [address] [id number] [place] [address]- 5118 September, [facility] [address] [id number] [place] [address]- 5769 Aug, [facility] [address] [id number] [place] [address]- 5602 Aug, [facility] [address] [id number] [place] [address]- 5862 Aug, [facility] [address] [id number] [place] [address]- 5605 Aug, [facility] [address] [id number] [place] [address]- 1030 26 Jul, 2012 [facility] [address] [id number] [place] [address]- 7455 25 Jul, 2012 [facility] [address] [id number] [place] [address]- 2898 Jul, [facility] [address] [id number] [place] [address]- 0536 15 Jul, 2012 [facility] [address] [id number] [place] [address]- 2100 14 Jul, 2012 [facility] [address] [id number] [place] [address]- 3356 13 Jul, 2012 [facility] [address] [id number] [place] [address]- 4897 13 Jul, 2012 [facility] [address] [id number] [place] [address]- 1713 Jun, [facility] [place] [facility] [address] [id number] [place] [address]- 7828 Jun, [facility] [place] [facility] [address] [id number] [place] [address]- 8732 Jun, [facility] [place] [facility] [address] [id number] [place] [address]- 5398 Jun, [facility] [place] [facility] [address] [id number] [place] [address]- 5405 May, [facility] [place] [facility] [address] [id number] [place] [address]- 7263 May, [facility] [place] [facility] [address] [id number] [place] [address]- 8924 May, [facility] [place] [facility] [address] [id number] [place] [address]- 2181 May, [facility] [place] [facility] [address] [id number] [place] [address]- 1292 May, [facility] [place] [facility] [address] [id number] [place] [address]- 2266 Apr, [facility] [place] [facility] [address] [id number] [place] [address]- 6987 Apr, [facility] [place] [facility] [address] [id number] [place] [address]- 6112 Mar, [facility] [place] [facility] [address] [id number] [place] [address]- 6579 Mar, [facility] [place] [facility] [address] [id number] [place] [address]- 4872 Mar, [facility] [place] [facility] [address] [id number] [place] [address]- 7013 Mar, [facility] [place] [facility] [address] [id number] [place] [address]- 9737 Mar, [facility] [place] [facility] [address] [id number] [place] [address]- 4964 Mar, [facility] [place] [facility] [address] [id number] [place] [address]- 6715 Mar, [facility] [place] [facility] [address] [id number] [place] [address]- 0875 Mar, [facility] [place] [facility] [address] [id number] [place] [address]- 0438 Mar, [facility] [place] [facility] [address] [id number] [place] [address]- 7725 Mar, [facility] [place] [facility] [address] [id number] [place] [address]- 0789 Feb, [facility] [place] [facility] [address] [id number] [place] [address]- 5207 Feb, [facility] [place] [facility] [address] [id number] [place] [address]- 7287 Feb, [facility] [place] [facility] [address] [id number] [place] [address]- 8624 Feb, [facility] [place] [facility] [address] [id number] [place] [address]- 0856 Feb, [facility] [place] [facility] [address] [id number] [place] [address]- 6075 Feb, [facility] [place] [facility] [address] [id number] [place] [address]- 4148 Feb, [facility] [place] [facility] [address] [id number], [place] [address]- 7090 Jan, [facility] [place] [facility] [address] [id number] [place] [address]- 7318 Jan, [facility] [place] [facility] [address] [id number] [place] [address]- 4052 Dec, [facility] [place] [facility] [address] [id number] [place] [address]- 4752 Dec, [facility] [place] [facility] [address] [id number] [place] [address]- 3217 Dec, [facility] [place] [facility] [address] [id number] [place] [address]- 7483 Dec, [facility] [place] [facility] [address] [id number] [place] [address]- 0203 16 Dec, 2011 [facility] [place] [facility] [address] [id number] [place] [address]- 1245 Dec, [facility] [place] [facility] [address] [id number] [place] [address]- 1056 Nov, [facility] [place] [facility] [address] [id number] [place] [address]- 0291 Nov, [facility] [place] [facility] [address] [id number] [place] [address]- 8874 Nov, [facility] [place] [facility] [address] [id number] [place] [address]- 6981 Nov, [facility] [place] [facility] [address] [id number] [place] [address]- 9254 September, [facility] [place] [facility] [address] [id number] [place] [address]- 3014 September, [facility] [place] [facility] [address] [id number] [place] [address]- 2153 September, [facility] [place] [facility] [address] [id number] [place] [address]- 9590 Jul, [facility] [place] [facility] [address] [id number] [place] [address]- 3340 Jun, [facility] [place] [facility] [address] [id number] [place] [address]- 1633 Jun, [facility] [place] [facility] [address] [id number] [place] [address]- 9827 13 Jun, 2011 [facility] [place] [facility] [address] [id number], [place] [address]- 2546 Apr, [facility] [id number] [address] Mar, [facility] [address] [id number], [place] [address] Mar, [facility] [id number], [place] [address] Feb, [facility] [id number], [place] [address] Feb, [facility] [id number], [place] [address] Feb, [facility] [id number] [address] Jul, [facility] [address] [id number], [place] [address] Feb, IMMUNIZATIONS No Known Immunizations SOCIAL HISTORY Never Assessed REASON FOR VISIT Controlled/refill request PLAN OF CARE VITAL SIGNS MEDICATIONS Medication Instructions Dosage Frequency Start Date End Date Duration Status [place] 7.5-325 MG Orally every 6 hrs 1 tablet as needed September, Active RESULTS No Results PROCEDURES No Known [...]
--- OUTSIDE RECORDS SUMMARY | 2018-02-02 23:41 | XMS REPORT ---
Author Author MACY TAMAYO Organization 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 Name Role Phone MACY TAMAYO Unavailable PROBLEMS Type Condition ICD9-CM Code ZJP64-RT Code Onset Dates Condition Status SNOMED Code Problem Plantar wart of both feet B07.0 Active [id number] Problem Controlled type 2 diabetes mellitus without complication, without long -term current use of insulin E11.9 Active 250584923 Problem Lumbago with sciatica, left side M54.42 Active 506182326 Problem Lumbago with sciatica, right side M54.41 Active 835202023 Problem Morbid (severe) obesity due to excess calories E66.01 Active 915999305 Problem Body mass index (BMI) of 45.0-49.9 in adult Z68.42 Active 937620025 Problem Tachycardia with heart rate 121-140 beats per minute R00.0 Active 7266194 Problem Dermatomyositis M33.90 Active 895934800 Problem Enlarged thyroid gland E04.9 Active 6203556 Problem Allergic rhinitis due to pollen J30.1 Active 10113429 Problem Mood disorder F39 Active 69702677 Problem Menopause Z78.0 Active 617955897 Problem Anxiety F41.9 Active 48507637 Problem Other chronic pain G89.29 Active 25168492 Problem Diabetes type 2, controlled E11.9 Active 13035809 Problem Arthritis M19.90 Active 8211217 Problem Osteoarthritis of right knee, unspecified osteoarthritis type M17.9 Active 427304974 Problem Plantar warts B07.0 Active 80472860 ALLERGIES No Information ENCOUNTERS Encounter Location Date Diagnosis [facility] [id number] [address] Jan, [facility] [id number] [address] Jan, [facility] [address] [address] Jan, [facility] [id number] [place] [address] 96353- 4117 Dec, [facility] [id number] [place] [address] 33524- 8513 Dec, Acute non-recurrent maxillary sinusitis J01.00 [facility] [id number] [place] [address] 76340- 8527 Dec, [facility] [id number] [place] [address] 16701- 0067 Dec, Mood disorder F39 [facility] [id number] [place] [address] 69744- 8940 Dec, Mood disorder F39 [facility] [id number] [place] [address] 57473- 7631 Dec, [facility] [id number] [place] [address] 41930- 5959 Dec, Acute right ankle pain M25.571 [facility] [id number] [place] [address] 04256- 0418 Nov, Lumbar radiculopathy M54.16 [facility] [id number] [place] [address] 61614- 4845 Nov, [facility] [id number] [place] [address] 10103- 2967 Nov, Mood disorder F39 [facility] [id number] [place] [address] 02539- 6727 Nov, Lumbago with sciatica, right side M54.41 and Other chronic pain G89.29 [facility] [id number] [place] [address] 39121- 3063 Nov, Acute right ankle pain M25.571 [facility] [id number] [place] [address] 74873- 8367 Nov, [facility] [id number] [place] [address] 55090- 4602 Oct, [facility] [id number] [place] [address] 12037- 4767 Oct, Plantar wart of both feet B07.0 [facility] [id number] [place] [address] 04752- 9667 Oct, [facility] [id number] [place] [address] 65125- 3632 Oct, Acute right ankle pain M25.571 and Plantar wart of both feet B07.0 [facility] [id number] [place] [address] 70044- 0593 September, Other chronic pain G89.29 [facility] [id number] [place] [address] 50706- 8640 September, Other chronic pain G89.29 [facility] [place] [id number] [place] [address] 66720- 7320 September, Other chronic pain G89.29 [facility] [place] [id number] [place] [address] 90533- 8397 Aug, Mood disorder F39 [place] [id number] [place] [address] 29584- 1627 Aug, Other chronic pain G89.29 ; Controlled type 2 diabetes mellitus without complication, without long-term current use of insulin E11.9 ; Low back pain M54.5 and Tinea corporis B35.4 [facility] [place] [id number] [place] [address] 01817- 1956 Aug, Mood disorder F39 and Anxiety F41.9 [facility] [place] [id number] [place] [address] 55539- 4373 Aug, Mood disorder F39 and Anxiety F41.9 [facility] [place] [id number] [place] [address] 71902- 1087 Jul, [facility] [id number] [place] [address] 72502 -2420 13 Jul, 2017 Scabies B86 and BMI 45.0-49.9, adult Z68.42 [facility] [place] [id number] [place] [address] 67581- 1268 Jul, [facility] [place] [id number] [place] [address] 76419- 6159 Jul, Mood disorder F39 and Anxiety F41.9 [address] [address] 53848- 7766 Jul, [facility] [place] [id number] [place] [address] 51384 -2765 27 Jun, 2017 Bronchitis J40 ; Dark urine R82.99 and BMI 45.0-49.9, adult Z68.42 [facility] [id number] [place] [address] 79785- 3121 14 Jun, 2017 Acute pain of right shoulder M25.511 and Acute pain of right knee M25.561 [facility] [id number] [place] [address] 03676- 2723 May, BMI 40.0-44.9, adult Z68.41 ; Controlled type 2 diabetes mellitus without complication, without long-term current use of insulin E11.9 ; Muscle cramping R25.2 ; Hot flashes R23.2 ; Mood disorder F39 ; Anxiety F41.9 and Morbid (severe) obesity due to excess calories E66.01 [facility] [id number] [place] [address] 67601- 9760 May, BMI 40.0-44.9, adult Z68.41 ; Controlled type 2 diabetes mellitus without complication, without long-term current use of insulin E11.9 ; Muscle cramping R25.2 and Hot flashes R23.2 [facility] [id number] [place] [address] 74010- 9221 May, Tachycardia with heart rate 121-140 beats per minute R00.0 ; Morbid (severe) obesity due to excess calories E66.01 ; Diabetes type 2, controlled E11.9 and Enlarged thyroid gland E04.9 [facility] [id number] [place] [address] 48877- 1118 May, Encounter for well woman exam with [...] Dysuria R30.0 and Screening breast examination Z12.[address] 29271- 7507 Apr, Mood disorder F39 ; Other chronic pain G89.29 and Anxiety F41.9 [place] [address] 99754- 0525 Apr, Lumbago with sciatica, left side M54.42 and Other chronic pain G89.29 [facility] [place] [id number] [place] [address] 25713- 7161 Apr, Lupus erythematosus L93.0 [place] [address] 80719- 1016 Mar, Plantar wart of both feet B07.0 [facility] [id number] [place] [address] 11827- 3585 Mar, Lupus erythematosus L93.0 and Sinus drainage J34.89 [place] [address] 59613- 8887 09 Mar, 2017 Mood disorder F39 ; Other chronic pain G89.29 and Anxiety F41.[address] 01628- 8733 Mar, Mood disorder F39 ; Arthritis M19.[address] B[address].0 [facility] [id number] [place] [address] 35392- 6468 Feb, Lupus erythematosus L93.0 [facility] [id number] [place] [address] 96473- 6601 Feb, Other chronic pain G89.29 [facility] [id number] [place] [address] 34347- 5430 Feb, Mood disorder F39 [address] [facility] [address] 01411- 9812 Jan, [facility] [id number] [place] [address] 44365- 1806 Jan, Mood disorder F39 [facility] [id number] [place] [address] 95160- 0956 Dec, Nail, ingrown L60.0 [facility] [id number] [place] [address] 17220- 8617 Dec, Nail, ingrown L60.0 [facility] [id number] [place] [address] 03116- 4736 Nov, Mood disorder F39 [address] [facility] [id number] [place] [address] 41561- 8275 Nov, Sinus drainage J34.89 ; Hot flashes R23.2 ; Anxiety F41.9 and Diabetes type [address], [address] [facility] [id number] [place] [address] 93641- 4398 Nov, Nail, ingrown L60.0 [facility] [id number] [place] [address] 11883- 0889 Oct, Anxiety F41.[address] [facility] [id number] [place] [address] 61194- 0371 Oct, Nail, ingrown L60.[address] [facility] [id number] [place] [address] 53005- 7957 Oct, Lupus erythematosus L93.0 [facility] [id number] [place] [address] 33107- 5710 September, [facility] [id number] [place] [address] 61741- 8691 September, [facility] [id number] [place] [address] 61639- 6619 September, Lupus erythematosus L93.0 [facility] [id number] [place] [address] 50491- 4518 Aug, [facility] [id number] [place] [address] 64669- 6070 Aug, Mood disorder F39 [address]9 [facility] [id number] [place] [address] 94007- 4969 Aug, Lupus erythematosus L93.0 ; Diabetes type 2, controlled E11.9 and Localized edema R60.0 [facility] [id number] [place] [address] 69024- 4478 Aug, [facility] [id number] [place] [address] 72502- 3734 Jul, Anxiety F41.[address] [facility] [id number] [place] [address] 45131- 4960 Jul, Diabetes type 2, controlled E11.9 [facility] [id number] [place] [address] 75028- 2067 Jun, Anxiety F41.9 [facility] [id number] [place] [address] 72010- 6271 May, [facility] [id number] [place] [address] 75313- 3097 May, [place] [id number] [place] [address] 77598- 9041 May, Nausea R11.0 ; Other chronic pain G89.29 and Pain in right knee M25.561 [facility] [place] [id number] [place] [address] 54681- 4562 May, [place] [id number] [place] [address] 77391- 2558 Apr, Tear of medial meniscus of right knee, current, unspecified tear type, subsequent encounter S83.241D and Tear of lateral meniscus of right knee, current, unspecified tear type, subsequent encounter S83.281D [place] [id number] [place] [address] 37017- 6333 Apr, Anxiety F41.9 and Mood disorder F39 [address] [address] 68443- 4862 Apr, Anxiety F41.9 [facility] [id number] [place] [address] 32778- 2517 Apr, [facility] [place] [id number] [place] [address] 69433- 1501 Mar, [place] [id number] [place] [address] 28913- 8951 Mar, Lupus erythematosus L93.0 and Diabetes type 2, controlled E11.9 [facility] [id number] [place] [address] 20612- 6765 Mar, Mood disorder F39 [place] [id number] [place] [address] 92666- 4607 Mar, Tear of lateral meniscus of right knee, current, unspecified tear type, initial encounter S83.281A and Osteoarthritis of right knee, unspecified osteoarthritis type M17.9 [facility] [id number] [place] [address] 77945- 5479 Mar, [facility] [address] [address]- 5044 Feb, Mood disorder F39 [facility] [id number] [place] [address] 58236- 3381 Feb, Rash R21 [facility] [id number] [place] [address] 75545- 9195 Feb, [facility] [id number] [place] [address] 54598- 2934 Jan, Other chronic pain G89.29 and Muscle spasm M62.838 [facility] [id number] [place] [address] 32982- 8948 Jan, Mood disorder F39 [facility] [id number] [place] [address] 00161- 6506 Jan, Pain in right knee M25.561 ; Other chronic pain G89.29 and Muscle spasm M62.838 [facility] [id number] [place] [address] 94782- 8250 Dec, [facility] [id number] [place] [address] 84355- 1020 Dec, [facility] [id number] [place] [address] 46111- 4262 Nov, [facility] [id number] [place] [address] 56813- 4848 Nov, Mood disorder F39 [facility] [id number] [place] [address] 34805- 2304 Nov, Diabetes type 2, controlled E11.9 ; Bronchitis J40 ; Edema, unspecified type R60.9 ; Weight gain R63.5 and Right knee pain, unspecified chronicity M25.561 [facility] [id number] [place] [address] 10413- 4859 Oct, Mood disorder F39 [facility] [id number] [place] [address] 33055- 7661 Oct, Lupus erythematosus L93.0 and Bilateral edema of lower extremity R60.0 [facility] [id number] [place] [address] 19411- 2297 Oct, Mood disorder F39 [address] [facility] [id number] [place] [address] 33495- 5996 September, Mood disorder F39 ; Anxiety F41.9 and Anger reaction R45.4 [facility] [place] [id number] [place] [address] 79792- 6324 September, Diabetes type 2, controlled E11.9 ; Edema, unspecified type R60.9 and Fatigue, unspecified type R53.83 [place] [id number] [place] [address] 89343- 6096 Aug, Mood disorder F39 and Generalized anxiety disorder F41.1 [place] [address] 00200- 5814 Aug, Diabetes type 2, controlled E11.9 ; Sinusitis J32.9 and Mood disorder F39 [place] [id number] [place] [address] 54965- 9504 Aug, Lupus erythematosus L93.0 [facility] [id number] [place] [address] 56739- 9745 Aug, [facility] [id number] [place] [address] 84330- 4608 Aug, [facility] [id number] [place] [address] 24151- 3943 Jul, Diabetes type 2, controlled E11.9 [facility] [id number] [place] [address] 44952- 2047 Jul, Mood disorder F39 [address] Depression [address]9 [facility] [id number] [place] [address] 07067- 6891 21 Mar, 2016 Lupus erythematosus L93.0 and Diabetes type [address], [address] [facility] [address] [address]- 4036 07 Jul, 2015 Mood disorder F39 [address]9 [facility] [id number] [place] [address] 73564 2546 Jul, [facility] [id number] [place] [address] 33242 2546 Jul, [facility] [id number] [place] [address] 93311 2546 Jun, Mood disorder F39 [address]9 [facility] [id number] [place] [address] 17593- 1056 Jun, Mood disorder F39 [facility] [id number] [place] [address] 22859- 8006 Jun, [facility] [id number] [place] [address] 04062- 2835 Jun, [facility] [id number] [place] [address] 39227- 2264 Jun, Mood disorder F39 [facility] [id number] [place] [address] 84984 2546 Jun, [facility] [id number] [place] [address] 29639 2542 May, [facility] [address] [address] 2546 May, [facility] [id number] [place] [address] 62017 2546 May, [facility] [id number] [place] [address] 28570 2546 May, [facility] [address] [address]- 3566 May, Anxiety F41.9 ; Dermatomyositis M33.90 and Diabetes type 2, controlled E11.9 [facility] [id number] [place] [address] 64731 -5140 May, 2016 Sinusitis J32.[address] [facility] [id number] [place] [address] 84685- 0913 May, Mood disorder F39 [facility] [address] 24858- 5020 May, Adjustment disorder with mixed anxiety and depressed mood F43.23 [facility] [id number] [place] [address] 74529- 4355 Apr, [facility] [id number] [place] [address] 71646- 7514 Apr, [facility] [id number] [place] [address] 26059- 0284 Apr, Generalized anxiety disorder F41.1 [address] Mood disorder F39 [facility] [id number] [place] [address] 35465- 8364 Mar, [facility] [id number] [place] [address] 18193- 3345 Mar, [facility] [id number] [place] [address] 11837- 3424 Mar, [facility] [id number] [place] [address] 80323- 3906 Mar, Mood disorder F39 [facility] [id number] [place] [address] 70922- 3648 Feb, [facility] [id number] [place] [address] 63762- 7917 Feb, Diabetes E11.[address] [facility] [id number] [place] [address] 76067- 3735 Feb, [facility] [id number] [place] [address] 88545- 5439 Feb, [place] [id number] [place] [address] 75298- 5776 Feb, Major depression, recurrent, full remission F33.42 and KELLY ( generalized anxiety disorder) F41.1 [facility] [place] [id number] [place] [address] 41789- 9559 Feb, [facility] [place] [id number] [place] [address] 14849- 6715 Feb, Single major depressive episode, in partial or unspecified remission F32.5 [facility] [id number] [place] [address] 80684- 7374 Jan, Fatigue 780.79 [facility] [place] [id number] [place] [address] 27046- 4951 Jan, [facility] [place] [id number] [place] [address] 46248- 7453 Jan, Diabetes with other specified manifestations, type II or unspecified type, not stated as uncontrolled 250.80 [facility] [id number] [place] [address] 20485- 3450 Jan, [place] [id number] [place] [address] 99376- 4427 Dec, Hot flashes 627.2 ; Memory loss 780.93 and Joint pain 719.40 [place] [id number] [place] [address] 22216- 4053 Dec, Major depression, recurrent 296.30 ; Generalized anxiety disorder 300.02 ; Adjustment disorder with depressed mood 309.0 and No condition on Derry II V71.09 [place] [address] [place] [id number] [place] [address] 48229- 1990 Dec, [place] [address] [place] [id number] [place] [address] 97975- 6563 Nov, Cognitive and neurobehavioral dysfunction 294.9 ; Major depressive disorder, recurrent episode, moderate degree 296.32 and Anxiety state , unspecified 300.00 [place] [id number] [place] [address] 53950- 9587 Nov, [place] [id number] [place] [address] 76963- 9999 Nov, Bronchitis 490 and Diabetes with other specified manifestations, type II or unspecified type, not stated as uncontrolled 250.80 [place] [id number] [place] [address] 86323- 3728 Nov, Major depressive disorder, recurrent episode, moderate 296.32 and Anxiety disorder, unspecified 300.00 [place] [id number] [place] [address] 98164- 0803 Nov, Anxiety, generalized 300.02 ; Intermittent explosive disorder 312.34 ; No condition on Derry II V71.09 and No condition on axis III V71.[address] 40[address]- [address] Oct, Diabetes with other specified manifestations, type II or unspecified type, not stated as uncontrolled 250.80 ; Urinary tract infection, site not specified 599.0 and Bronchitis [address] [place] [id number] [place] [address] 84227- 2769 Oct, Intermittent explosive disorder 312.34 ; Bipolar 1 disorder , depressed, moderate 296.52 ; Major depression, chronic 296.20 ; No condition on Derry II V71.09 and No condition on axis III V71.[id number] [place] [address] 14731- 5370 Oct, Major depressive disorder, recurrent episode, moderate 296.32 ; Anxiety state 300.00 ; Cognitive decline 294.9 and No condition on Derry II V71.09 [place] [id number] [place] [address] 72818- 7013 Oct, [place] [id number] [place] [address] 37888- 5793 Oct, Major depressive disorder, recurrent episode, moderate 296.32 ; Anxiety disorder, unspecified 300.00 and Persistent disorder of initiating or maintaining sleep 307.42 [facility] [id number] [address] September, Diabetes with other specified manifestations, type II or unspecified type, not stated as uncontrolled 250.80 ; Memory loss 780.93 and Cognitive complaints 799.59 [facility] [address] [place] [id number] [place] [address] 63321- 8792 September, No condition on Derry II V71.09 ; Major depression, recurrent 296.30 and Persistent mood [affective] disorder, unspecified 296.90 [facility] [address] [place] [id number] [place] [address] 32953- 2770 Aug, [facility] [facility] [id number] [place] [address] [id number] 4652 Aug, [facility] [id number] [place] [address]- 1159 Aug, [facility] [id number] [place] [address] [id number] 3293 Jul, [facility] [id number] [place] [address] 174050- 4195 Jul, [facility] [id number] [address] Jul, [facility] [id number] [address] 8668 Jul, [facility] [id number] [address] 2250 Jul, [facility] [id number] [address] Jun, [facility] [id number] [address] Jun, [facility] [id number] [place] [address] 7[address]- 3467 Jun, [facility] [place] [facility] [address] [id number] [place] [address]- 0901 Jun, 2014 [facility] [place] [facility] [address] [id number] [place] [address]- 9540 Jun, 2014 [facility] [place] [facility] [address] [id number] [place] [address]- 2700 Jun, 2014 [facility] [place] [facility] [address] [id number] [place] [address]- 5962 Jun, 2014 [facility] [place] [facility] [address] [id number] [place] [address]- 9304 Jun, 2014 [facility] [place] [facility] [address] [id number] [place] [address]- 2326 Jun, 2014 [facility] [place] [facility] [address] [facility] [id number] [place] [address]- 6198 Jun, 2014 [facility] [place] [facility] [address] [id number] [place] [address]- 3787 Jun, 2014 [facility] [place] [facility] [address] [id number] [place] [address]- 2011 Jun, 2014 [facility] [place] [facility] [address] [facility] [id number] [place] [address]- 9348 Jun, 2014 [facility] [place] [facility] [address] [facility] [id number] [place] [address]- 7521 May, [facility] [place] [facility] [address] [id number] [place] [address]- 2818 May, [facility] [place] [facility] [address] [id number] [place] [address]- 6908 Apr, [facility] [place] [facility] [address] [id number] [place] [address]- 5710 Apr, [facility] [place] [facility] [address] [facility] [id number] [place] [address]- 9714 Apr, [facility] [place] [facility] [address] [id number] [place] [address]- 2541 Apr, [facility] [address] [id number] [place] [address]- 2516 Apr, [facility] [place] [facility] [address] [id number] [place] [address]- 3126 Apr, [facility] [place] [facility] [address] [id number] [place] [address]- 3526 Apr, [facility] [place] [facility] [address] [id number] [place] [address]- 3975 Apr, [facility] [place] [facility] [address] [id number] [place] [address] Apr, [facility] [place] [facility] [address] [id number] [place] [address]- 5976 Apr, [facility] [address] [id number] [place] [address]- 9678 Apr, [facility] [address] [id number] [place] [address]- 2693 Apr, [facility] [place] [facility] [address] [id number] [place] [address]- 1979 Apr, [facility] [address] [id number] [place] [address]- 5292 Apr, [facility] [place] [facility] [address] [id number] [place] [address]- 5409 Apr, [facility] [place] [facility] [address] [id number] [place] [address]- 3364 Apr, [facility] [place] [facility] [address] [id number] [place] [address]- 1132 Apr, [facility] [place] [facility] [address] [id number] [place] [address]- 0992 Apr, [facility] [place] [facility] [address] [id number] [place] [address] Apr, [facility] [place] [facility] [address] [id number] [place] [address]- 6760 Apr, [facility] [place] [facility] [address] [id number] [place] [address]- 6328 Mar, [facility] [place] [facility] [address] [id number] [place] [address]- 9635 Mar, [facility] [place] [facility] [address] [id number] [place] [address]- 1997 Mar, [facility] [place] [facility] [address] [id number] [place] [address]- 9145 Mar, [facility] [place] [facility] [address] [id number] [place] [address]- 2230 Mar, [facility] [place] [facility] [address] [id number] [place] [address]- 6592 Mar, [facility] [place] [facility] [address] [id number] [place] [address]- 4629 Mar, [facility] [place] [facility] [address] [id number] [place] [address]- 5611 Mar, [facility] [place] [facility] [address] [id number] [address]- 8780 Mar, [facility] [place] [facility] [address] [id number] [place] [address]- 6075 Mar, [facility] [place] [facility] [address] [id number] [place] [address]- 1569 Mar, [facility] [place] [facility] [address] [id number] [place] [address]- 1876 Mar, [facility] [place] [facility] [address] [id number] [place] [address]- 9984 Mar, [facility] [place] [facility] [address] [id number] [place] [address]- 2915 Feb, [facility] [place] [facility] [address] [id number] [place] [address]- 1258 31 Feb, 2013 [facility] [place] [facility] [address] [id number] [place] [address]- 0298 30 Feb, 2013 [facility] [place] [facility] [address] [id number] [place] [address]- 8263 Feb, [facility] [place] [facility] [address] [id number] [place] [address]- 0057 Feb, [facility] [place] [facility] [address] [id number] [place] [address]- 4579 Feb, [facility] [place] [facility] [address] [id number] [place] [address]- 8842 Feb, [facility] [place] [facility] [address] [id number] [place] [address]- 2255 Feb, [facility] [place] [facility] [address] [id number] [place] [address]- 0013 Feb, [facility] [place] [facility] [address] [id number] [place] [address]- 5901 Feb, [facility] [place] [facility] [address] [id number] [place] [address]- 0354 Feb, [facility] [place] [facility] [address] [id number] [place] [address]- 1277 Feb, [facility] [place] [facility] [address] [id number] [place] [address]- 6614 10 Feb, 2013 [facility] [place] [facility] [address] [id number] [place] [address]- 4973 07 Feb, 2014 [facility] [place] [facility] [address] [id number] [place] [address]- 5812 07 Feb, 2013 [facility] [place] [facility] [address] [id number] [place] [address]- 3840 10 Jan, 2013 [facility] [place] [facility] [address] [id number] [place] [address]- 8503 08 Jan, 2013 [facility] [place] [facility] [address] [id number] [place] [address]- 7953 08 Jan, 2013 [facility] [place] [facility] [address] [id number] [place] [address]- 3135 Jan, [facility] [place] [facility] [address] [id number] [place] [address]- 6497 Jan, [facility] [place] [facility] [address] [id number] [place] [address]- 0647 Dec, [facility] [place] [facility] [address] [id number] [place] [address]- 3367 Dec, [facility] [place] [facility] [address] [id number] [place] [address]- 8542 Dec, [facility] [place] [facility] [address] [id number] [place] [address]- 1533 Dec, [facility] [place] [facility] [address] [id number] [place] [address]- 0827 Nov, [facility] [place] [facility] [address] [id number] [place] [address]- 0077 Nov, [facility] [place] [facility] [address] [id number] [place] [address]- 3346 Nov, [facility] [place] [facility] [address] [id number] [place] [address]- 2027 Nov, [facility] [place] [facility] [address] [id number] [place] [address]- 1072 Nov, [facility] [place] [facility] [address] [id number] [place] [address]- 1091 Nov, [facility] [place] [facility] [address] [id number] [place] [address]- 9965 Nov, [facility] [place] [facility] [address] [id number] [place] [address]- 4791 Nov, [facility] [place] [facility] [address] [id number] [place] [address]- 2112 Nov, [facility] [place] [facility] [address] [id number] [place] [address]- 8982 Nov, [facility] [place] [facility] [address] [id number] [place] [address]- 8010 Oct, [facility] [place] [facility] [address] [id number] [place] [address]- 9577 Oct, [facility] [place] [facility] [address] [id number] [place] [address]- 5841 September, [facility] [place] [facility] [address] [id number] [place] [address]- 0777 September, [facility] [place] [facility] [address] [id number] [place] [address]- 5159 September, [facility] [place] [facility] [address] [id number] [place] [address]- 8616 September, [facility] [place] [facility] [address] [id number] [place] [address]- 4338 Aug, [facility] [place] [facility] [address] [id number] [place] [address]- 9895 Aug, [facility] [place] [facility] [address] [id number] [place] [address]- 4394 Aug, [facility] [place] [facility] [address] [id number] [place] [address]- 4655 Jul, [facility] [place] [facility] [address] [id number] [place] [address]- 7136 Jul, [facility] [place] [facility] [address] [id number] [place] [address]- 0764 Jul, [facility] [place] [facility] [address] [id number] [place] [address]- 4243 Jul, [facility] [place] [facility] [address] [id number] [place] [address]- 6585 May, [facility] [place] [facility] [address] [id number] [place] [address]- 3928 17 May, 2013 [facility] [place] [facility] [address] [id number] [place] [address]- 1759 May, [facility] [place] [facility] [address] [id number] [place] [address]- 0864 15 Mar, 2013 [facility] [place] [facility] [address] [id number] [place] [address]- 3687 15 Mar, 2013 [facility] [place] [facility] [address] [id number] [place] [address]- 0128 Mar, [facility] [place] [facility] [address] [id number] [place] [address]- 1620 Mar, [facility] [place] [facility] [address] [id number] [place] [address]- 8782 16 Feb, 2013 [facility] [place] [facility] [address] [id number] [place] [address]- 1063 16 Feb, 2013 [facility] [place] [facility] [address] [id number] [place] [address]- 8457 Feb, [facility] [place] [facility] [address] [id number] [place] [address]- 9880 16 Jan, 2013 [facility] [place] [facility] [address] [id number] [place] [address]- 2673 12 Jan, 2013 [facility] [place] [facility] [address] [id number] [place] [address]- 8640 09 Jan, 2013 [facility] [place] [facility] [address] [id number] [place] [address]- 3485 Dec, [facility] [place] [facility] [address] [id number] [place] [address]- 7954 Dec, [facility] [place] [facility] [address] [id number] [place] [address]- 6823 Dec, [facility] [place] [facility] [address] [id number] [place] [address]- 3810 Dec, [facility] [place] [facility] [address] [id number] [place] [address]- 5178 Nov, [facility] [address] [id number] [place] [address]- 2786 Oct, [facility] [place] [facility] [address] [id number] [place] [address]- 2412 Oct, [facility] [place] [facility] [address] [id number] [place] [address]- 9848 September, [facility] [address] [id number] [place] [address]- 2126 September, [facility] [address] [id number] [place] [address]- 1417 September, [facility] [address] [id number] [place] [address]- 1407 Aug, [facility] [address] [id number] [place] [address]- 2373 Aug, [facility] [address] [id number] [place] [address]- 6078 Aug, [facility] [address] [id number] [place] [address]- 5514 Aug, [facility] [address] [id number] [place] [address]- 5304 Jul, [facility] [address] [id number] [place] [address]- 2159 Jul, [facility] [address] [id number] [place] [address]- 3295 Jul, [facility] [address] [id number] [place] [address]- 3866 15 Jul, 2012 [facility] [address] [id number] [place] [address]- 3101 14 Jul, 2012 [facility] [place] [address] [id number] [place] [address]- 2508 Jul, [facility] [address] [id number] [place] [address]- 9980 Jul, [facility] [place] [address] [id number] [place] [address]- 9806 Jun, [facility] [place] [address] [id number] [place] [address]- 6326 Jun, [facility] [place] [facility] [address] [id number] [place] [address]- 2380 Jun, [facility] [place] [address] [id number] [place] [address]- 2826 Jun, [facility] [place] [address] [id number] [place] [address]- 7342 May, [facility] [address] [id number] [place] [address]- 1921 May, [facility] [place] [facility] [address] [id number] [place] [address]- 6965 May, [facility] [place] [address] [facility] [id number] [place] [address]- 3749 May, [facility] [place] [facility] [address] [facility] [id number] [place] [address]- 2124 May, [facility] [address] [id number] [place] [address]- 4376 Apr, [facility] [place] [address] [id number] [place] [address]- 2466 Apr, [facility] [place] [facility] [address] [id number] [place] [address]- 1766 Mar, [facility] [place] [facility] [address] [id number] [place] [address]- 0918 Mar, [facility] [address] [facility] [id number] [place] [address]- 7079 Mar, [facility] [place] [facility] [address] [id number] [place] [address]- 9888 Mar, [facility] [place] [facility] [address] [id number] [place] [address]- 2228 Mar, [facility] [place] [facility] [address] [id number] [place] [address]- 8886 Mar, [facility] [place] [facility] [address] [id number] [place] [address]- 8967 Mar, [facility] [place] [facility] [address] [id number] [place] [address]- 3437 Mar, [facility] [place] [facility] [address] [id number] [place] [address]- 5433 Mar, [facility] [place] [facility] [address] [id number] [place] [address]- 1213 Mar, [facility] [place] [facility] [address] [id number] [place] [address]- 8171 Feb, [facility] [place] [facility] [address] [id number] [place] [address]- 0109 Feb, [facility] [place] [facility] [address] [id number] [place] [address]- 7940 Feb, [facility] [place] [facility] [address] [id number] [place] [address]- 9478 Feb, [facility] [place] [facility] [address] [id number] [place] [address]- 1564 Feb, [facility] [place] [facility] [address] [id number] [place] [address]- 9910 Feb, [facility] [place] [facility] [address] [id number] [place] [address]- 4146 Feb, [facility] [place] [facility] [address] [id number] [place] [address]- 1594 12 Jan, 2012 [facility] [place] [facility] [address] [id number] [place] [address]- 1908 Jan, [facility] [place] [facility] [address] [id number] [place] [address]- 9458 Dec, [facility] [place] [facility] [address] [id number] [place] [address]- 3032 Dec, [facility] [place] [facility] [address] [id number] [place] [address]- 6394 Dec, [facility] [place] [facility] [address] [id number] [place] [address]- 0245 Dec, [facility] [place] [facility] [address] [id number] [place] [address]- 6796 Dec, [facility] [place] [facility] [address] [id number] [place] [address]- 9958 Dec, [facility] [place] [facility] [address] [id number] [place] [address]- 8512 Nov, [facility] [place] [facility] [address] [id number] [place] [address]- 6444 Nov, [facility] [place] [facility] [address] [id number] [place] [address]- 9909 Nov, [facility] [place] [facility] [address] [id number] [place] [address]- 4188 Nov, [facility] [place] [facility] [address] [id number] [place] [address]- 2359 September, [facility] [place] [facility] [address] [id number] [place] [address]- 9378 September, [facility] [place] [facility] [address] [id number] [place] [address]- 1494 September, [facility] [place] [facility] [address] [id number] [place] [address]- 4051 Jul, [facility] [place] [facility] [address] [id number] [place] [address]- 0953 Jun, [facility] [place] [facility] [id number] [address] 7022 20 Jun, 2011 [facility] [id number] [address]- 3871 [address], [address] [facility] [id number] [address]- 1730 Apr, [facility] [id number] [address] Mar, [facility] [id number] [address] Mar, [facility] [id number] [place] [id number] Feb, [facility] [id number] [address] Feb, [facility] [id number] [address] Feb, [facility] [id number] [address] Jul, [facility] [id number] [address] Feb, IMMUNIZATIONS No Known Immunizations SOCIAL HISTORY Never Assessed REASON FOR VISIT Right Ankle PLAN OF CARE VITAL SIGNS MEDICATIONS Unknown [...]
--- OUTSIDE RECORDS SUMMARY | 2018-02-02 23:42 | XMS REPORT ---
Author Author MACY TAMAYO Organization [facility] Address [address] [place] [address] Care Team Providers Care Plug Assembler Name Role Phone MACY TAMAYO Unavailable PROBLEMS Type Condition ICD9-CM Code HFV46-BX Code Onset Dates Condition Status SNOMED Code Problem Plantar wart of both feet B07.0 Active [id number] Problem Controlled type 2 diabetes mellitus without complication, without long -term current use of insulin E11.9 Active 452491398 Problem Lumbago with sciatica, left side M54.42 Active 825739794 Problem Lumbago with sciatica, right side M54.41 Active 761224427 Problem Morbid (severe) obesity due to excess calories E66.01 Active 459175872 Problem Body mass index (BMI) of 45.0-49.9 in adult Z68.42 Active 407261030 Problem Tachycardia with heart rate 121-140 beats per minute R00.0 Active 1953372 Problem Dermatomyositis M33.90 Active 094360385 Problem Enlarged thyroid gland E04.9 Active 3018092 Problem Allergic rhinitis due to pollen J30.1 Active 84443012 Problem Mood disorder F39 Active 69562168 Problem Menopause Z78.0 Active 726861468 Problem Anxiety F41.9 Active 83244122 Problem Other chronic pain G89.29 Active 97450552 Problem Diabetes type 2, controlled E11.9 Active 24963601 Problem Arthritis M19.90 Active 8936983 Problem Osteoarthritis of right knee, unspecified osteoarthritis type M17.9 Active 451609167 Problem Plantar warts B07.0 Active 45083638 ALLERGIES No Information ENCOUNTERS Encounter Location Date Diagnosis [facility] [id number] [address] Jan, [facility] [id number] [address] Jan, [facility] [address] [address] Jan, [facility] [id number] [place] [address] 60993- 9421 Dec, [facility] [id number] [place] [address] 10249- 0979 Dec, Mood disorder F39 [facility] [id number] [place] [address] 09007- 6369 Dec, [facility] [id number] [place] [address] 34147- 8017 Dec, Acute right ankle pain M25.571 [facility] [id number] [place] [address] 34488- 6212 Nov, Lumbar radiculopathy M54.16 [facility] [id number] [place] [address] 62468- 0705 Nov, [facility] [id number] [place] [address] 54989- 4262 Nov, Mood disorder F39 [facility] [id number] [place] [address] 05677- 7022 Nov, Lumbago with sciatica, right side M54.41 and Other chronic pain G89.29 [facility] [id number] [place] [address] 70372- 5883 Nov, Acute right ankle pain M25.571 [facility] [id number] [place] [address] 58528- 0934 Nov, [facility] [id number] [place] [address] 10965- 8830 Oct, [facility] [id number] [place] [address] 45200- 3126 Oct, Plantar wart of both feet B07.0 [facility] [id number] [place] [address] 92176- 2642 Oct, [facility] [id number] [place] [address] 29680- 4270 Oct, Acute right ankle pain M25.571 and Plantar wart of both feet B07.0 [facility] [id number] [place] [address] 78931- 8407 September, Other chronic pain G89.29 [place] [address] 70857- 1695 September, Other chronic pain G89.29 [place] [address] 38084- 9385 September, Other chronic pain G89.29 [facility] [id number] [place] [address] 20826- 6486 Aug, Mood disorder F39 [place] [address] 49032- 9212 Aug, Other chronic pain G89.29 ; Controlled type 2 diabetes mellitus without complication, without long-term current use of insulin E11.9 ; Low back pain M54.5 and Tinea corporis B35.4 [facility] [id number] [place] [address] 37167- 5324 Aug, Mood disorder F39 and Anxiety F41.9 [facility] [id number] [place] [address] 89412- 2415 Aug, Mood disorder F39 and Anxiety F41.9 [facility] [id number] [place] [address] 39155- 1938 Jul, [facility] [address] 98777 -6335 Jul, Scabies B86 and BMI 45.0-49.9, adult Z68.42 [place] [id number] [place] [address] 00147- 6133 Jul, [facility] [address] [place] [address] 3805 Jul, Mood disorder F39 and Anxiety F41.9 [facility] [id number] [place] [address] 55363- 9248 Jul, [facility] [id number] [place] [address] 65721 -2534 27 Jun, 2017 Bronchitis J40 ; Dark urine R82.99 and BMI 45.0-49.9, adult Z68.42 [place] [address] 92156- 6809 14 Jun, 2017 Acute pain of right shoulder M25.511 and Acute pain of right knee M25.561 [facility] [id number] [place] [address] 54802- 8410 May, BMI 40.0-44.9, adult Z68.41 ; Controlled type 2 diabetes mellitus without complication, without long-term current use of insulin E11.9 ; Muscle cramping R25.2 ; Hot flashes R23.2 ; Mood disorder F39 ; Anxiety F41.9 and Morbid (severe) obesity due to excess calories E66.01 [facility] [id number] [place] [address] 60930- 0180 May, BMI 40.0-44.9, adult Z68.41 ; Controlled type 2 diabetes mellitus without complication, without long-term current use of insulin E11.9 ; Muscle cramping R25.2 and Hot flashes R23.2 [facility] [facility] [id number] [place] [address] 75777- 6744 May, Tachycardia with heart rate 121-140 beats per minute R00.0 ; Morbid (severe) obesity due to excess calories E66.01 ; Diabetes type 2, controlled E11.9 and Enlarged thyroid gland E04.9 [facility] [id number] [place] [address] 61764- 2700 May, Encounter for well woman exam with [...] Dysuria R30.0 and Screening breast examination Z12.31 [place] [address] 24652- 0055 Apr, Mood disorder F39 ; Other chronic pain G89.29 and Anxiety F41.9 [place] [address] 81934- 1622 Apr, Lumbago with sciatica, left side M54.42 and Other chronic pain G89.29 [place] [address] 04612- 8614 Apr, Lupus erythematosus L93.0 [facility] [address] 15217- 3358 Mar, Plantar wart of both feet B07.0 [place] [address] 32390- 9215 Mar, Lupus erythematosus L93.0 and Sinus drainage J34.89 [facility] [place] [id number] [place] [address] 90317- 4131 Mar, Mood disorder F39 ; Other chronic pain G89.29 and Anxiety F41.9 [facility] [id number] [place] [address] 32534- 7281 Mar, Mood disorder F39 ; Arthritis M19.90 and Plantar warts B07.0 [place] [address] 10454- 8774 Feb, Lupus erythematosus L93.0 [facility] [id number] [place] [address] 70046- 5826 Feb, Other chronic pain G89.29 [facility] [facility] [id number] [place] [address] 97785- 1261 Feb, Mood disorder F39 and Anxiety F41.9 [facility] [id number] [place] [address] 65342- 8428 Jan, [facility] [id number] [place] [address] 43736- 6422 Jan, Mood disorder F39 [facility] [id number] [place] [address] 57589- 3193 Dec, Nail, ingrown L60.0 [facility] [id number] [place] [address] 82135- 7038 Dec, Nail, ingrown L60.0 [facility] [id number] [place] [address] 54231- 5185 Nov, Mood disorder F39 and Anxiety F41.9 [facility] [address] 59911- 3794 Nov, Sinus drainage J34.89 ; Hot flashes R23.2 ; Anxiety F41.9 and Diabetes type 2, controlled E11.9 [facility] [id number] [place] [address] 69091- 4288 Nov, Nail, ingrown L60.0 [facility] [id number] [place] [address] 94310- 1853 Oct, Anxiety F41.9 and Mood disorder F39 [facility] [id number] [place] [address] 96835- 4491 Oct, Nail, ingrown L60.0 and Anxiety F41.9 [facility] [id number] [place] [address] 96895- 2778 Oct, Lupus erythematosus L93.0 [facility] [id number] [place] [address] 81317- 3082 September, [facility] [address] [place] [address]- 3454 September, [facility] [id number] [place] [address] 12148- 0838 September, Lupus erythematosus L93.0 [facility] [id number] [address]- 5226 Aug, [facility] [id number] [place] [address] 52380- 1866 Aug, Mood disorder F39 and Anxiety F41.9 [facility] [id number] [place] [address] 26958- 1175 Aug, Lupus erythematosus L93.0 ; Diabetes type 2, controlled E11.9 and Localized edema R60.0 [facility] [id number] [place] [address] 08557- 2562 Aug, [facility] [id number] [place] [address] 99422- 7569 Jul, Anxiety F41.9 and Mood disorder F39 [facility] [id number] [place] [address] 38776- 8021 Jul, Diabetes type 2, controlled E11.9 [facility] [id number] [place] [address] 28536- 7766 Jun, Anxiety F41.9 [facility] [id number] [place] [address] 53392- 5168 May, [facility] [id number] [place] [address] 12448- 6119 May, [facility] [id number] [place] [address] 84139- 3120 May, Nausea R11.0 ; Other chronic pain G89.29 and Pain in right knee M25.561 [facility] [address] [address]- 1690 May, [facility] [id number] [place] [address] 69848- 6506 Apr, Tear of medial meniscus of right knee, current, unspecified tear type, subsequent encounter S83.241D and Tear of lateral meniscus of right knee, current, unspecified tear type, subsequent encounter S83.281D [facility] [id number] [place] [address] 83660- 8620 Apr, Anxiety F41.9 and Mood disorder F39 [facility] [id number] [place] [address] 16887- 7711 Apr, Anxiety F41.9 [facility] [id number] [place] [address] 41122- 7273 Apr, [facility] [id number] [place] [address] 01142- 4026 Mar, [facility] [id number] [place] [address] 82681- 0095 Mar, Lupus erythematosus L93.0 and Diabetes type 2, controlled E11.9 [facility] [id number] [place] [address] 90695- 1872 Mar, Mood disorder F39 [facility] [id number] [place] [address] 50984- 2416 Mar, Tear of lateral meniscus of right knee, current, unspecified tear type, initial encounter S83.281A and Osteoarthritis of right knee, unspecified osteoarthritis type M17.9 [facility] [id number] [place] [address] 01339- 7455 Mar, [facility] [id number] [place] [address] 76708- 4693 Feb, Mood disorder F39 [facility] [id number] [place] [address] 28761- 5768 Feb, Rash R21 [facility] [id number] [place] [address] 19588- 9767 Feb, [facility] [address] [address]- 2011 Jan, Other chronic pain G89.29 and Muscle spasm M62.838 [facility] [id number] [place] [address] 72427- 4348 Jan, Mood disorder F39 [facility] [id number] [place] [address] 30184- 3751 Jan, Pain in right knee M25.561 ; Other chronic pain G89.29 and Muscle spasm M62.838 [facility] [id number] [place] [address] 29995- 6419 Dec, [facility] [id number] [place] [address] 53349- 4960 Dec, [facility] [id number] [place] [address] 92436- 6665 Nov, [facility] [id number] [place] [address] 49045- 1727 Nov, Mood disorder F39 [facility] [id number] [place] [address] 58470- 8388 Nov, Diabetes type 2, controlled E11.9 ; Bronchitis J40 ; Edema, unspecified type R60.9 ; Weight gain R63.5 and Right knee pain, unspecified chronicity M25.561 [facility] [id number] [place] [address] 30653- 1311 Oct, Mood disorder F39 [facility] [id number] [place] [address] 59936- 7181 Oct, Lupus erythematosus L93.0 and Bilateral edema of lower extremity R60.0 [facility] [id number] [place] [address] 05320- 1574 Oct, Mood disorder F39 and Anxiety F41.9 [facility] [id number] [place] [address] 09144- 0731 September, Mood disorder F39 ; Anxiety F41.9 and Anger reaction R45.4 [facility] [id number] [place] [address] 85428- 1251 September, Diabetes type 2, controlled E11.9 ; Edema, unspecified type R60.9 and Fatigue, unspecified type R53.83 [facility] [id number] [place] [address] 15444- 0281 Aug, Mood disorder F39 and Generalized anxiety disorder F41.1 [facility] [id number] [place] [address] 10392- 0664 Aug, Diabetes type 2, controlled E11.9 ; Sinusitis J32.9 and Mood disorder F39 [facility] [id number] [place] [address] 38129- 1381 Aug, Lupus erythematosus L93.0 [facility] [id number] [place] [address] 97949- 4501 Aug, [facility] [id number] [place] [address] 12964- 7794 Aug, [facility] [id number] [place] [address] 83533- 2358 Jul, Diabetes type 2, controlled E11.9 [facility] [id number] [place] [address] 91950- 4213 Jul, Mood disorder F39 and Depression F32.9 [facility] [id number] [place] [address] 29099- 2293 Jul, Lupus erythematosus L93.0 and Diabetes type 2, controlled E11.9 [facility] [id number] [place] [address] 75896- 3505 Jul, Mood disorder F39 and Anxiety F41.9 [facility] [id number] [place] [address] 22199- 1945 Jul, [facility] [id number] [place] [address] 56233- 6304 Jul, [facility] [id number] [place] [address] 67713- 7095 Jun, Mood disorder F39 and Anxiety F41.9 [facility] [id number] [place] [address] 83046- 1001 Jun, Mood disorder F39 [facility] [id number] [place] [address] 59232- 9149 Jun, [facility] [id number] [place] [address] 56052- 7672 Jun, [facility] [id number] [place] [address] 18400- 9226 Jun, Mood disorder F39 [facility] [id number] [place] [address] 65811- 0756 Jun, [facility] [id number] [place] [address] 64788- 4209 May, [facility] [id number] [place] [address] 63735- 4160 May, [facility] [id number] [place] [address] 77930- 6562 May, [facility] [id number] [place] [address] 68667- 7641 May, [facility] [id number] [place] [address] 01524- 4989 May, Anxiety F41.9 ; Dermatomyositis M33.90 and Diabetes type 2, controlled E11.9 [facility] [id number] [place] [address] 07568 -3657 May, Sinusitis J32.9 and Cough R05 [facility] [id number] [place] [address] 08333- 1819 May, Mood disorder F39 [facility] [id number] [place] [address] 63866- 5333 May, Adjustment disorder with mixed anxiety and depressed mood F43.23 [facility] [id number] [place] [address] 42019- 9459 Apr, [facility] [id number] [place] [address] 47708- 0786 Apr, [facility] [id number] [place] [address] 69160- 0992 Apr, Generalized anxiety disorder F41.1 and Mood disorder F39 [facility] [id number] [place] [address] 85618- 4336 Mar, [facility] [id number] [place] [address] 60610- 5574 Mar, [facility] [id number] [place] [address] 56593- 4436 Mar, [facility] [id number] [place] [address] 19689- 8081 Mar, Mood disorder F39 [facility] [id number] [place] [address] 57934- 0556 Feb, [facility] [id number] [place] [address] 15384- 5258 Feb, Diabetes E11.9 and Bronchitis J40 [facility] [id number] [place] [address] 03756- 7609 Feb, [facility] [id number] [place] [address] 93320- 6791 Feb, [facility] [id number] [place] [address] 29258- 5516 Feb, Major depression, recurrent, full remission F33.42 and KELLY ( generalized anxiety disorder) F41.1 [facility] [address] [address]- 2628 Feb, [facility] [id number] [place] [address] 59511- 1959 Feb, Single major depressive episode, in partial or unspecified remission F32.5 [facility] [id number] [place] [address] 55056- 2080 Jan, Fatigue 780.79 [facility] [id number] [place] [address] 42361- 8113 Jan, [facility] [id number] [place] [address] 49833- 8236 Jan, Diabetes with other specified manifestations, type II or unspecified type, not stated as uncontrolled 250.80 [facility] [id number] [place] [address] 98835- 5476 Jan, [facility] [place] [id number] [place] [address] 52450- 2928 Dec, Hot flashes 627.2 ; Memory loss 780.93 and Joint pain 719.40 [address] [id number] [place] [address] 31838- 9672 Dec, Major depression, recurrent 296.30 ; Generalized anxiety disorder 300.02 ; Adjustment disorder with depressed mood 309.0 and No condition on Manteo II V71.09 [place] [id number] [place] [address] 80450- 4011 Dec, [facility] [place] [id number] [place] [address] 29231- 5883 Nov, Cognitive and neurobehavioral dysfunction 294.9 ; Major depressive disorder, recurrent episode, moderate degree 296.32 and Anxiety state , unspecified 300.00 [id number] [place] [address] 70427- 6538 Nov, [place] [id number] [place] [address] 50106- 4246 Nov, Bronchitis 490 and Diabetes with other specified manifestations, type II or unspecified type, not stated as uncontrolled 250.[address] [place] [address]- 3319 Nov, Major depressive disorder, recurrent episode, moderate 296.32 and Anxiety disorder, unspecified 300.00 [place] [id number] [place] [address] 52760- 2799 Nov, Anxiety, generalized 300.02 ; Intermittent explosive disorder 312.34 ; No condition on Manteo II V71.09 and No condition on axis III V71.[address] 80378- 3912 Oct, Diabetes with other specified manifestations, type II or unspecified type, not stated as uncontrolled 250.80 ; Urinary tract infection, site not specified 599.0 and Bronchitis [id number] [place] [address] 64047- 7141 Oct, Intermittent explosive disorder 312.34 ; Bipolar 1 disorder , depressed, moderate 296.52 ; Major depression, chronic 296.20 ; No condition on Manteo II V71.09 and No condition on axis III V71.09 [facility] [id number] [place] [address] 63786- 9352 Oct, Major depressive disorder, recurrent episode, moderate 296.32 ; Anxiety state 300.00 ; Cognitive decline 294.9 and No condition on Manteo II V71.09 [place] [id number] [place] [address] Oct, [place] [id number] [place] [address] Oct, Major depressive disorder, recurrent episode, moderate 296.32 ; Anxiety disorder, unspecified 300.00 and Persistent disorder of initiating or maintaining sleep 307.[address] [address] September, Diabetes with other specified manifestations, type II or unspecified type, not stated as uncontrolled 250.80 ; Memory loss 780.93 and Cognitive complaints 799.59 [place] [id number] [place] [address]- [address] September, No condition on Manteo II V71.09 ; Major depression, recurrent 296.30 and Persistent mood [affective] disorder, unspecified 296.90 [facility] [id number] [address] Aug, [facility] [id number] [address] Aug, [facility] [id number] [address] Aug, [facility] [id number] [address] Jul, [facility] [id number] [address] Jul, [facility] [address] [id number] [address] Jul, [facility] [id number] [address] Jul, [facility] [id number] [address] 1042 Jul, [facility] [id number] [address] 59[address] Jun, [facility] [id number] [address] Jun, [facility] [place] [facility] [id number] [address] Jun, [facility] [place] [facility] [id number] [address] 9[address] Jun, [facility] [place] [facility] [id number] [address] Jun, [facility] [place] [facility] [id number] [address] Jun, [facility] [id number] [place] [address] Jun, 2014 [facility] [place] [facility] [address] [id number] [place] [address]- 3006 Jun, 2014 [facility] [place] [facility] [address] [id number] [place] [address]- 4076 Jun, 2014 [facility] [place] [facility] [address] [id number] [place] [address]- 7416 Jun, 2014 [facility] [place] [facility] [address] [id number] [place] [address]- 1285 Jun, 2014 [facility] [place] [facility] [address] [id number] [place] [address]- 5531 Jun, 2014 [facility] [place] [facility] [address] [facility] [id number] [place] [address]- 3869 Jun, 2014 [facility] [place] [facility] [address] [facility] [id number] [place] [address]- 6773 May, [facility] [place] [facility] [address] [facility] [id number] [place] [address]- 4803 May, [facility] [place] [facility] [address] [facility] [id number] [place] [address]- 2315 Apr, [facility] [place] [facility] [address] [facility] [id number] [place] [address]- 1275 Apr, [facility] [place] [facility] [address] [facility] [id number] [place] [address]- 2548 Apr, [facility] [place] [facility] [address] [facility] [id number] [place] [address] 2543 Apr, [facility] [place] [facility] [address] [facility] [id number] [place] [address]- 2546 Apr, [facility] [place] [facility] [address] [facility] [id number] [place] [address]- 2541 Apr, [facility] [place] [facility] [address] [facility] [id number] [place] [address]- 5724 Apr, [facility] [place] [facility] [address] [id number] [place] [address] Apr, [facility] [place] [facility] [address] [id number] [place] [address]- 5266 Apr, [facility] [place] [facility] [address] [id number] [place] [address]- 8846 Apr, [facility] [place] [facility] [address] [id number] [place] [address]- 9860 Apr, [facility] [place] [facility] [address] [id number] [place] [address]- 5533 Apr, [facility] [place] [facility] [address] [id number] [place] [address]- 3607 Apr, [facility] [place] [facility] [address] [id number] [place] [address]- 2769 Apr, [facility] [place] [facility] [address] [id number] [place] [address]- 8580 Apr, [facility] [place] [facility] [address] [id number] [place] [address]- 8721 Apr, [facility] [place] [facility] [address] [id number] [place] [address]- 4392 Apr, [facility] [place] [facility] [address] [id number] [address]- 5225 Apr, [facility] [place] [facility] [address] [id number], [place] [address]- 5276 Apr, [facility] [place] [facility] [address] [id number] [place] [address]- 5250 Apr, [facility] [place] [facility] [address] [id number] [place] [address]- 9894 Mar, [facility] [place] [facility] [address] [id number] [place] [address]- 2937 Mar, [facility] [place] [facility] [address] [id number] [place] [address]- 8531 Mar, [facility] [place] [facility] [address] [id number] [place] [address]- 2285 Mar, [facility] [place] [facility] [address] [id number] [place] [address]- 9382 Mar, [facility] [place] [facility] [address] [id number] [place] [address]- 8945 Mar, [facility] [place] [facility] [address] [id number] [place] [address]- 8789 Mar, [facility] [place] [facility] [address] [id number] [place] [address]- 4967 Mar, [facility] [place] [facility] [address] [id number] [place] [address]- 7903 Mar, [facility] [place] [facility] [address] [id number] [place] [address]- 5078 Mar, [facility] [place] [facility] [address] [id number] [place] [address]- 9310 Mar, [facility] [place] [facility] [address] [id number] [place] [address]- 7925 Mar, [facility] [place] [facility] [address] [facility] [id number] [place] [address]- 7593 Mar, [facility] [place] [facility] [address] [id number] [place] [address]- 2363 Feb, [facility] [place] [facility] [address] [id number] [place] [address]- 9350 Feb, [facility] [place] [facility] [address] [id number] [place] [address]- 1127 30 Feb, 2014 [facility] [place] [facility] [address] [id number] [place] [address]- 3800 Feb, [facility] [place] [facility] [address] [id number] [place] [address]- 4254 Feb, [facility] [place] [facility] [address] [id number] [place] [address]- 6596 Feb, [facility] [place] [facility] [address] [id number] [place] [address]- 1314 Feb, [facility] [place] [facility] [address] [id number] [place] [address]- 3794 Feb, [facility] [place] [facility] [address] [id number] [place] [address]- 5038 Feb, [facility] [place] [facility] [address] [id number] [place] [address]- 2456 Feb, [facility] [place] [facility] [address] [id number] [place] [address]- 0968 Feb, [facility] [place] [facility] [address] [id number] [place] [address]- 8899 Feb, [facility] [place] [facility] [address] [id number] [place] [address]- 9331 Feb, [facility] [place] [facility] [address] [id number] [place] [address]- 1291 Feb, [facility] [place] [facility] [address] [id number] [place] [address]- 4095 07 Feb, 2014 [facility] [place] [facility] [address] [id number] [place] [address]- 9193 10 Jan, 2013 [facility] [place] [facility] [address] [id number] [address]- 3033 08 Sep, 2013 [facility] [place] [facility] [address] [id number] [place] [address]- 1634 08 Sep, 2013 [facility] [place] [facility] [address] [id number] [place] [address]- 1966 08 Sep, 2013 [facility] [place] [facility] [address] [id number] [place] [address]- 2337 08 Jan, 2013 [facility] [place] [facility] [address] [id number] [place] [address]- 0384 Dec, [facility] [place] [facility] [address] [id number] [place] [address]- 7493 Dec, [facility] [place] [facility] [address] [id number] [place] [address]- 8567 Dec, [facility] [place] [facility] [address] [id number] [place] [address]- 4955 Dec, [facility] [place] [facility] [address] [id number] [place] [address]- 8328 Nov, [facility] [place] [facility] [address] [id number] [place] [address]- 6950 Nov, [facility] [place] [facility] [address] [id number] [place] [address]- 9430 Nov, [facility] [place] [facility] [address] [id number] [place] [address]- 4362 Nov, [facility] [place] [facility] [address] [id number] [place] [address]- 8030 Nov, [facility] [place] [facility] [address] [id number] [place] [address]- 5273 Nov, [facility] [place] [facility] [address] [id number] [place] [address]- 1356 Nov, [facility] [place] [facility] [address] [id number] [place] [address]- 4819 Nov, [facility] [place] [facility] [address] [id number] [place] [address]- 4989 Nov, [facility] [place] [facility] [address] [id number] [place] [address]- 5554 Nov, [facility] [place] [facility] [address] [id number] [place] [address]- 0917 Oct, [facility] [place] [facility] [address] [id number] [place] [address]- 3815 Oct, [facility] [place] [facility] [address] [id number] [place] [address]- 4136 September, [facility] [address] [id number] [place] [address]- 8807 September, [facility] [place] [facility] [address] [id number] [place] [address]- 6346 September, [facility] [address] [id number] [place] [address]- 6486 September, [facility] [address] [id number] [place] [address]- 0590 Aug, [facility] [address] [id number] [place] [address]- 7512 Aug, [facility] [address] [id number] [place] [address]- 9094 Aug, [facility] [address] [id number] [place] [address]- 8677 Jul, [facility] [address] [id number] [place] [address]- 0919 24 Jul, 2013 [facility] [address] [id number] [place] [address]- 6845 Jul, [facility] [address] [id number] [place] [address]- 3059 Jul, [facility] [address] [id number] [place] [address]- 6063 May, [facility] [address] [id number] [place] [address]- 6783 May, [facility] [place] [facility] [address] [id number] [place] [address]- 0055 May, [facility] [place] [facility] [address] [id number] [place] [address]- 4716 Mar, [facility] [place] [facility] [address] [id number] [place] [address]- 6690 Mar, [facility] [place] [facility] [address] [id number] [place] [address]- 5232 Mar, [facility] [place] [facility] [address] [id number] [place] [address]- 4939 Mar, [facility] [place] [facility] [address] [id number] [place] [address]- 9586 Feb, [facility] [place] [facility] [address] [id number] [place] [address]- 9031 Feb, [facility] [place] [facility] [address] [id number] [place] [address]- 5358 Feb, [facility] [place] [facility] [address] [id number] [place] [address]- 6351 Jan, [facility] [place] [facility] [address] [id number] [place] [address]- 0206 Jan, [facility] [place] [facility] [address] [id number] [place] [address]- 5313 Jan, [facility] [place] [facility] [address] [id number] [place] [address]- 0402 Dec, [facility] [place] [facility] [address] [id number] [place] [address]- 7494 Dec, [facility] [place] [facility] [address] [id number] [place] [address]- 6899 Dec, [facility] [place] [facility] [address] [id number], [place] [address]- 9403 Dec, [facility] [place] [facility] [address] [id number] [place] [address]- 3542 Nov, [facility] [place] [facility] [address] [id number] [place] [address]- 5067 Oct, [facility] [place] [facility] [address] [id number] [place] [address]- 3141 Oct, [facility] [place] [facility] [address] [id number] [place] [address]- 5209 September, [facility] [address] [id number] [place] [address]- 8325 September, [facility] [address] [id number] [place] [address]- 1367 September, [facility] [address] [id number] [place] [address]- 0479 Aug, [facility] [address] [id number] [place] [address]- 0025 Aug, [facility] [address] [id number] [place] [address]- 0576 Aug, [facility] [address] [id number] [place] [address]- 0044 Aug, [facility] [address] [id number] [place] [address]- 2503 Jul, [facility] [address] [id number] [place] [address]- 7898 Jul, [facility] [address] [id number] [place] [address]- 6764 21 Jul, 2012 [facility] [address] [id number] [place] [address]- 1031 15 Jul, 2012 [facility] [address] [id number] [place] [address]- 7987 14 Jul, 2012 [facility] [address] [id number] [place] [address]- 4482 Jul, [facility] [address] [id number] [place] [address]- 7673 Jul, [facility] [address] [id number] [place] [address]- 0647 Jun, [facility] [address] [id number], [place] [address]- 5814 Jun, [facility] [address] [id number] [place] [address]- 4135 Jun, [facility] [place] [facility] [address] [id number] [place] [address]- 5566 Jun, [facility] [address] [id number] [place] [address]- 1979 May, [facility] [place] [facility] [address] [id number] [place] [address]- 2917 May, [facility] [address] [id number] [place] [address]- 3365 May, [facility] [address] [id number] [place] [address]- 0411 May, [facility] [address] [id number] [place] [address]- 2919 May, [facility] [address] [id number] [place] [address]- 9330 Apr, [facility] [address] [id number] [place] [address]- 4232 Apr, [facility] [address] [id number] [place] [address]- 4242 Mar, [facility] [address] [id number] [place] [address]- 5500 Mar, [facility] [place] [facility] [address] [id number] [place] [address]- 4370 Mar, [facility] [place] [facility] [address] [id number] [place] [address]- 8619 Mar, [facility] [place] [facility] [address] [id number] [place] [address]- 6268 Mar, [facility] [place] [facility] [address] [id number] [place] [address]- 4879 Mar, [facility] [place] [facility] [address] [id number] [place] [address]- 1583 Mar, [facility] [place] [facility] [address] [id number] [place] [address]- 6263 Mar, [facility] [place] [facility] [address] [id number] [place] [address]- 8466 Mar, [facility] [place] [facility] [address] [id number] [place] [address]- 4351 Mar, [facility] [place] [facility] [address] [id number] [place] [address]- 6178 Feb, [facility] [place] [facility] [address] [id number] [place] [address]- 0704 Feb, [facility] [place] [facility] [address] [id number] [place] [address]- 3838 Feb, [facility] [place] [facility] [address] [id number] [place] [address]- 5994 Feb, [facility] [place] [facility] [address] [id number] [place] [address]- 6765 Feb, [facility] [place] [facility] [address] [id number] [place] [address]- 4673 Feb, [facility] [place] [facility] [address] [id number] [place] [address]- 6356 Feb, [facility] [place] [facility] [address] [id number] [place] [address]- 2628 Jan, [facility] [place] [facility] [address] [id number] [place] [address]- 7605 Jan, [facility] [place] [facility] [address] [id number] [place] [address]- 1536 Dec, [facility] [place] [facility] [address] [id number] [place] [address]- 8333 Dec, [facility] [place] [facility] [address] [id number] [place] [address]- 9938 Dec, [facility] [place] [facility] [address] [id number] [place] [address] 2546 17 Dec, 2011 [facility] [address] [id number] [place] [address]- 5056 16 Dec, 2011 [facility] [place] [facility] [address] [id number] [place] [address]- 7176 Dec, [facility] [address] [id number] [place] [address]- 1582 Nov, [facility] [address] [id number] [place] [address]- 5160 Nov, [facility] [address] [id number] [place] [address]- 0270 Nov, [facility] [address] [id number] [place] [address]- 5866 Nov, [facility] [address] [id number] [place] [address]- 3156 September, [facility] [address] [id number] [place] [address]- 8838 September, [facility] [address] [id number] [place] [address] September, [facility] [address] [id number] [place] [address] Jul, [facility] [place] [facility] [address] [id number] [place] [address] 29 Jun, 2011 [facility] [address] [id number] [place] [address] Jun, [facility] [place] [facility] [address] [id number] [place] [address] Jun, [facility] [place] [facility] [address] [id number] [place] [address] Apr, [facility] [place] [facility] [address] [id number] [place] [address] Mar, [facility] [address] [facility] [id number] [address] Mar, [facility] [address] [id number] [address] Feb, [facility] [address] [id number] [address] Feb, [facility] [id number] [address] Feb, [facility] [address] [id number] [address] Jul, [facility] [address] [id number] [address] Feb, IMMUNIZATIONS No Known Immunizations SOCIAL HISTORY Never Assessed REASON FOR VISIT Controlled Med Refill PLAN OF CARE VITAL SIGNS MEDICATIONS Medication Instructions Dosage Frequency Start Date End Date Duration Status [place] 7.5-325 MG Orally every 6 hrs 1 tablet as needed 6h September, Active RESULTS No Results PROCEDURES No [...]
--- OUTSIDE RECORDS SUMMARY | 2018-02-02 23:43 | XMS REPORT ---
Author Author MACY TAMAYO Organization [facility] Address [address] [place] [address] Care Team Providers Care Vascular Tech Name Role Phone MACY TAMAYO Unavailable PROBLEMS Type Condition ICD9-CM Code WNO99-XT Code Onset Dates Condition Status SNOMED Code Problem Plantar wart of both feet B07.0 Active [id number] Problem Controlled type 2 diabetes mellitus without complication, without long -term current use of insulin E11.9 Active 437205118 Problem Lumbago with sciatica, left side M54.42 Active 326669990 Problem Lumbago with sciatica, right side M54.41 Active 325008246 Problem Morbid (severe) obesity due to excess calories E66.01 Active 501672200 Problem Body mass index (BMI) of 45.0-49.9 in adult Z68.42 Active 148046258 Problem Tachycardia with heart rate 121-140 beats per minute R00.0 Active 1726348 Problem Dermatomyositis M33.90 Active 364648141 Problem Enlarged thyroid gland E04.9 Active 2963405 Problem Allergic rhinitis due to pollen J30.1 Active 25449852 Problem Mood disorder F39 Active 89481445 Problem Menopause Z78.0 Active 710159869 Problem Anxiety F41.9 Active 78704185 Problem Other chronic pain G89.29 Active 47269459 Problem Diabetes type 2, controlled E11.9 Active 88195192 Problem Arthritis M19.90 Active 6993571 Problem Osteoarthritis of right knee, unspecified osteoarthritis type M17.9 Active 028511649 Problem Plantar warts B07.0 Active 29359924 ALLERGIES No Information ENCOUNTERS Encounter Location Date Diagnosis [facility] [id number] [address] Jan, [facility] [id number] [address] Dec, [facility] [address] [address] 3[address] Dec, [facility] [id number] [place] [address] 51223- 9309 Dec, [facility] [id number] [place] [address] 63854- 5305 Dec, Acute right ankle pain M25.571 [facility] [id number] [place] [address] 87623- 0117 Nov, Lumbar radiculopathy M54.16 [facility] [id number] [place] [address] 14123- 9049 Nov, [facility] [id number] [place] [address] 45288- 4705 Nov, Mood disorder F39 [facility] [id number] [place] [address] 02547- 7705 Nov, Lumbago with sciatica, right side M54.41 and Other chronic pain G89.29 [facility] [id number] [place] [address] 55703- 7707 Nov, Acute right ankle pain M25.571 [facility] [id number] [place] [address] 33652- 5492 Nov, [facility] [id number] [place] [address] 94904- 6708 Oct, [facility] [id number] [place] [address] 77674- 8485 Oct, Plantar wart of both feet B07.0 [facility] [id number] [place] [address] 43994- 2793 Oct, [facility] [address] [address] 9139 Oct, Acute right ankle pain M25.571 and Plantar wart of both feet B07.0 [facility] [id number] [place] [address] 98834- 8345 September, Other chronic pain G89.29 [address] 58634- 5189 September, Other chronic pain G89.29 [place] [id number] [place] [address] 54216- 4846 September, Other chronic pain G89.29 [place] [address] 19960- 6867 Aug, Mood disorder F39 [place] [place] [address] 68129- 8032 Aug, Other chronic pain G89.29 ; Controlled type 2 diabetes mellitus without complication, without long-term current use of insulin E11.9 ; Low back pain M54.5 and Tinea corporis B35.4 [place] [address] 54775- 3203 Aug, Mood disorder F39 and Anxiety F41.9 [facility] [id number] [place] [address] 46171- 3383 Aug, Mood disorder F39 and Anxiety F41.9 [place] [id number] [place] [address] 82326- 4157 Jul, [facility] [id number] [place] [address] 49486 -8624 Jul, Scabies B86 and BMI 45.0-49.9, adult Z68.42 [place] [id number] [place] [address] 71001- 0605 Jul, [place] [address] 54582- 2376 Jul, Mood disorder F39 and Anxiety F41.9 [place] [id number] [place] [address] 69824- 8988 Jul, [facility] [address], [place] [address] 27 Jun, 2017 Bronchitis J40 ; Dark urine R82.99 and BMI 45.0-49.9, adult Z68.42 [place] [id number] [place] [address] 56181- 9681 14 Jun, 2017 Acute pain of right shoulder M25.511 and Acute pain of right knee M25.561 [facility] [id number] [place] [address] 28082- 8142 May, BMI 40.0-44.9, adult Z68.41 ; Controlled type 2 diabetes mellitus without complication, without long-term current use of insulin E11.9 ; Muscle cramping R25.2 ; Hot flashes R23.2 ; Mood disorder F39 ; Anxiety F41.9 and Morbid (severe) obesity due to excess calories E66.01 [place] [id number] [place] [address] 66117- 6739 May, BMI 40.0-44.9, adult Z68.41 ; Controlled type 2 diabetes mellitus without complication, without long-term current use of insulin E11.9 ; Muscle cramping R25.2 and Hot flashes R23.2 [place] [id number] [place] [address] 35631- 5021 May, Tachycardia with heart rate 121-140 beats per minute R00.0 ; Morbid (severe) obesity due to excess calories E66.01 ; Diabetes type 2, controlled E11.9 and Enlarged thyroid gland E04.9 [place] [id number] [place] [address] 30141- 3598 May, Encounter for well woman exam with [...] Dysuria R30.0 and Screening breast examination Z12.31 [facility] [address] 31757- 9321 Apr, Mood disorder F39 ; Other chronic pain G89.29 and Anxiety F41.9 [facility] [address] 30330- 6822 Apr, Lumbago with sciatica, left side M54.42 and Other chronic pain G89.29 [facility] [address] 31311- 1435 Apr, Lupus erythematosus L93.0 [facility] [address] 68865- 6145 Mar, Plantar wart of both feet B07.0 [facility] [address] 11578- 6113 Mar, Lupus erythematosus L93.0 and Sinus drainage J34.89 [facility] [address] 43196- 0638 Mar, Mood disorder F39 ; Other chronic pain G89.29 and Anxiety F41.9 [facility] [id number] [place] [address] 99167- 7499 Mar, Mood disorder F39 ; Arthritis M19.90 and Plantar warts B07.0 [facility] [id number] [place] [address] 16582- 9066 Feb, Lupus erythematosus L93.0 [facility] [id number] [place] [address] 16712- 5066 Feb, Other chronic pain G89.29 [facility] [id number] [place] [address] 9075 Feb, Mood disorder F39 and Anxiety F41.9 [facility] [address] 31290- 9880 Jan, [facility] [address] [address] 6389 Jan, Mood disorder F39 [facility] [id number] [place] [address] 54247- 5969 Dec, Nail, ingrown L60.0 [facility] [id number] [place] [address] 94622- 2545 Dec, Nail, ingrown L60.0 [facility] [id number] [place] [address] 89229- 6527 Nov, Mood disorder F39 and Anxiety F41.9 [facility] [id number] [place] [address] 21250- 5291 Nov, Sinus drainage J34.89 ; Hot flashes R23.2 ; Anxiety F41.9 and Diabetes type 2, controlled E11.9 [facility] [id number] [place] [address] 83538- 1185 Nov, Nail, ingrown L60.0 [facility] [id number] [place] [address] 22261- 5838 Oct, Anxiety F41.9 and Mood disorder F39 [facility] [id number] [place] [address] 43601- 3129 Oct, Nail, ingrown L60.0 and Anxiety F41.9 [facility] [id number] [place] [address] 69831- 0798 Oct, Lupus erythematosus L93.0 [facility] [id number] [place] [address] 68465- 9389 September, [facility] [id number] [place] [address] 10646- 7271 September, [facility] [id number] [place] [address] 60086- 5422 September, Lupus erythematosus L93.0 [facility] [id number] [place] [address] 81370- 5947 Aug, [facility] [id number] [place] [address] 57121- 1348 Aug, Mood disorder F39 and Anxiety F41.9 [facility] [id number] [place] [address] 76402- 6102 Aug, Lupus erythematosus L93.0 ; Diabetes type 2, controlled E11.9 and Localized edema R60.0 [facility] [id number] [place] [address] 68184- 0678 Aug, [place] [address] 30020- 2542 Jul, Anxiety F41.9 and Mood disorder F39 [place] [id number] [place] [address] 59244- 8247 Jul, Diabetes type 2, controlled E11.9 [facility] [id number] [place] [address] 00896- 7527 Jun, Anxiety F41.9 [facility] [id number] [place] [address] 52734- 0612 May, [facility] [id number] [place] [address] 85824- 1016 May, [place] [id number] [place] [address] 98489- 6284 May, Nausea R11.0 ; Other chronic pain G89.29 and Pain in right knee M25.561 [facility] [id number] [place] [address] 96351- 8102 May, [facility] [id number] [place] [address] 02737- 0605 Apr, Tear of medial meniscus of right knee, current, unspecified tear type, subsequent encounter S83.241D and Tear of lateral meniscus of right knee, current, unspecified tear type, subsequent encounter S83.281D [place] [id number] [place] [address] 65834- 1171 Apr, Anxiety F41.9 and Mood disorder F39 [facility] [id number] [place] [address] 68338- 7616 Apr, Anxiety F41.9 [facility] [id number] [place] [address] 22934- 6936 Apr, [facility] [id number] [place] [address] 30269- 7595 Mar, [facility] [id number] [place] [address] 42823- 5519 Mar, Lupus erythematosus L93.0 and Diabetes type 2, controlled E11.9 [facility] [id number] [place] [address] 70212- 6952 Mar, Mood disorder F39 [facility] [id number] [place] [address] 38555- 6868 Mar, Tear of lateral meniscus of right knee, current, unspecified tear type, initial encounter S83.281A and Osteoarthritis of right knee, unspecified osteoarthritis type M17.9 [facility] [id number] [place] [address] 66588- 5665 Mar, [facility] [id number] [place] [address] 84579- 2326 Feb, Mood disorder F39 [facility] [id number] [place] [address] 33107- 0435 Feb, Rash R21 [facility] [id number] [place] [address] 41097- 0236 Feb, [facility] [id number] [place] [address] 07419- 1276 Jan, Other chronic pain G89.29 and Muscle spasm M62.838 [facility] [id number] [place] [address] 16330- 2540 Jan, Mood disorder F39 [facility] [id number] [place] [address] 02985- 5623 Jan, Pain in right knee M25.561 ; Other chronic pain G89.29 and Muscle spasm M62.838 [facility] [id number] [place] [address] 06259- 3445 Dec, [facility] [id number] [place] [address] 71785- 3899 Dec, [facility] [id number] [place] [address] 39898- 4541 Nov, [facility] [id number] [place] [address] 27084- 9610 Nov, Mood disorder F39 [place] [id number] [place] [address] 66736- 2648 Nov, Diabetes type 2, controlled E11.9 ; Bronchitis J40 ; Edema, unspecified type R60.9 ; Weight gain R63.5 and Right knee pain, unspecified chronicity M25.561 [place] [id number] [place] [address] 51048- 1662 Oct, Mood disorder F39 [facility] [id number] [place] [address] 05373- 1752 Oct, Lupus erythematosus L93.0 and Bilateral edema of lower extremity R60.0 [place] [id number] [place] [address] 45289- 0830 Oct, Mood disorder F39 and Anxiety F41.9 [place] [id number] [place] [address] 13995- 3072 September, Mood disorder F39 ; Anxiety F41.9 and Anger reaction R45.4 [place] [address] [place] [address] 61666- 9654 September, Diabetes type 2, controlled E11.9 ; Edema, unspecified type R60.9 and Fatigue, unspecified type R53.83 [facility] [id number] [place] [address] 02587- 9699 Aug, Mood disorder F39 and Generalized anxiety disorder F41.1 [facility] [id number] [place] [address] 53880- 8238 Aug, Diabetes type 2, controlled E11.9 ; Sinusitis J32.9 and Mood disorder F39 [facility] [id number] [place] [address] 44869- 9504 Aug, Lupus erythematosus L93.0 [facility] [id number] [place] [address] 13181- 2699 Aug, [facility] [id number] [place] [address] 01952- 8949 Aug, [facility] [id number] [place] [address] 11486- 6503 Jul, Diabetes type 2, controlled E11.9 [facility] [id number] [place] [address] 60008- 4510 Jul, Mood disorder F39 and Depression F32.9 [facility] [id number] [place] [address] 22953- 1583 Jul, Lupus erythematosus L93.0 and Diabetes type 2, controlled E11.9 [facility] [id number] [place] [address] 44965- 1013 Jul, Mood disorder F39 and Anxiety F41.9 [facility] [id number] [place] [address] 48029- 7180 Jul, [facility] [id number] [place] [address] 67166- 6507 Jul, [facility] [id number] [place] [address] 33860- 2477 Jun, Mood disorder F39 and Anxiety F41.9 [facility] [id number] [place] [address] 40939- 1370 Jun, Mood disorder F39 [facility] [address], [place] [address]- 9027 18 Jun, 2015 [facility] [id number] [place] [address] 33711- 8642 Jun, [facility] [id number] [place] [address] 11186- 5601 Jun, Mood disorder F39 [facility] [id number] [place] [address] 29182- 4932 Jun, [facility] [id number] [place] [address] 69224- 0763 May, [facility] [id number] [place] [address] 93712- 4153 May, [facility] [id number] [place] [address] 50554- 0068 May, [facility] [id number] [place] [address] 54678- 3038 May, [facility] [id number] [place] [address] 76520- 3436 May, Anxiety F41.9 ; Dermatomyositis M33.90 and Diabetes type 2, controlled E11.9 [facility] [address] [place] [address] 59051 -5296 May, Sinusitis J32.9 and Cough R05 [facility] [address] [address]- 7823 May, Mood disorder F39 [facility] [id number] [place] [address] 82236- 1514 May, Adjustment disorder with mixed anxiety and depressed mood F43.23 [facility] [address] [address]- 8049 Apr, [facility] [address] [address]- 6605 Apr, [facility] [id number] [place] [address] 33452- 5369 Apr, Generalized anxiety disorder F41.1 and Mood disorder F39 [facility] [id number] [place] [address] 04750- 9287 Mar, [facility] [id number] [place] [address] 34450- 6550 Mar, [facility] [id number] [place] [address] 16589- 8137 Mar, [facility] [id number] [place] [address] 19340- 4290 Mar, Mood disorder F39 [facility] [id number] [place] [address] 29210- 1596 Feb, [facility] [id number] [place] [address] 35833- 6102 Feb, Diabetes E11.9 and Bronchitis J40 [facility] [id number] [place] [address] 74800- 3349 Feb, [facility] [id number] [place] [address] 80991- 2490 Feb, [facility] [id number] [place] [address] 91788- 8080 Feb, Major depression, recurrent, full remission F33.42 and KELLY ( generalized anxiety disorder) F41.1 [facility] [id number] [place] [address] 34542- 3578 Feb, [facility] [id number] [place] [address] 20788- 0263 Feb, Single major depressive episode, in partial or unspecified remission F32.5 [facility] [id number] [place] [address] 51342- 0481 Jan, Fatigue 780.79 [place] [id number] [place] [address] 03864- 7863 Jan, [place] [id number] [place] [address] 88492- 9840 Jan, Diabetes with other specified manifestations, type II or unspecified type, not stated as uncontrolled [id number] [place] [address] 58630- 2097 Jan, [place] [id number] [place] [address] 31936- 4723 Dec, Hot flashes 627.2 ; Memory loss 780.93 and Joint pain 719.40 [id number] [place] [address] 95788- 9123 Dec, Major depression, recurrent 296.30 ; Generalized anxiety disorder 300.02 ; Adjustment disorder with depressed mood 309.0 and No condition on Lamar II V71.09 [id number] [place] [address] 78901- 5885 Dec, [id number] [place] [address] 49474- 6073 Nov, Cognitive and neurobehavioral dysfunction 294.9 ; Major depressive disorder, recurrent episode, moderate degree 296.32 and Anxiety state , unspecified 300.[id number] [place] [address] 36946- 0641 Nov, [place] [address] [place] [id number] [place] [address] 29712- 4517 Nov, Diabetes with other specified manifestations, type II or unspecified type, not stated as uncontrolled 250.80 and Bronchitis [address] [id number] [place] [address] [id number]- 9977 Nov, Major depressive disorder, recurrent episode, moderate 296.32 and Anxiety disorder, unspecified 300.00 [place] [id number] [place] [address] 21163- 0441 Nov, Anxiety, generalized 300.02 ; Intermittent explosive disorder 312.34 ; No condition on Lamar II V71.09 and No condition on axis III V71.09 [place] [id number] [place] [address] 56559- 6484 Oct, Diabetes with other specified manifestations, type II or unspecified type, not stated as uncontrolled 250.80 ; Urinary tract infection, site not specified 599.0 and Bronchitis [id number] [place] [address] 45447- 0719 Oct, Intermittent explosive disorder 312.34 ; Bipolar 1 disorder , depressed, moderate 296.52 ; Major depression, chronic 296.20 ; No condition on Lamar II V71.09 and No condition on axis III V71.09 [place] [id number] [place] [address] 18133- 3847 Oct, Major depressive disorder, recurrent episode, moderate 296.32 ; Anxiety state 300.00 ; Cognitive decline 294.9 and No condition on Lamar II V71.09 [place] [id number] [place] [address] [id number]- 2179 Oct, [address] [address]- [address] Oct, Major depressive disorder, recurrent episode, moderate 296.32 ; Anxiety disorder, unspecified 300.00 and Persistent disorder of initiating or maintaining sleep 307.42 [place] [id number] [place] [address] 71314- 9057 September, Diabetes with other specified manifestations, type II or unspecified type, not stated as uncontrolled 250.80 ; Memory loss 780.93 and Cognitive complaints 799.59 [place] [id number] [place] [address] 61800- 1097 September, No condition on Lamar II V71.09 ; Major depression, recurrent 296.30 and Persistent mood [affective] disorder, unspecified 296.90 [place] [id number] [place] [address] 72751- 5636 Aug, [facility] [place] [facility] [address] [id number] [place] [address] Aug, [facility] [place] [facility] [address] [id number] [place] [address] 0755 Aug, [facility] [place] [facility] [address] [id number] [place] [address] 0927 Jul, [facility] [place] [facility] [address] [id number] [place] [address] Jul, [facility] [place] [facility] [address] [id number] [place] [address] 8567 Jul, [facility] [place] [facility] [address] [id number] [place] [address] 42[address] Jul, [facility] [place] [facility] [address] [facility] [id number] [place] [address] 8[address] Jul, [facility] [place] [facility] [address] [id number] [place] [address]- 5583 Jun, [facility] [place] [facility] [address] [id number] [place] [address] 2910 Jun, [facility] [place] [facility] [address] [facility] [id number] [place] [address]- 9[address] Jun, [facility] [place] [facility] [address] [facility] [id number] [place] [address]- 8731 Jun, 2014 [facility] [place] [facility] [address] [id number] [address] Jun, [facility] [place] [facility] [address] [id number] [place] [address]- 4162 Jun, [facility] [place] [facility] [address] [id number] [place] [address]- 2874 Jun, [facility] [place] [facility] [address] [facility] [id number] [place] [address]- [address] Jun, [facility] [place] [facility] [address] [facility] [id number] [place] [address]- 2108 Jun, 2014 [facility] [place] [facility] [address] [id number] [place] [address]- 3986 Jun, 2014 [facility] [place] [facility] [address] [id number] [place] [address] Jun, 2014 [facility] [place] [facility] [address] [id number] [place] [address]- 9996 Jun, 2014 [facility] [place] [facility] [address] [id number] [place] [address]- 6233 Jun, 2014 [facility] [place] [facility] [address] [id number] [place] [address] May, [facility] [place] [facility] [address] [facility] [id number] [place] [address]- 8971 May, [facility] [place] [facility] [address] [facility] [id number] [place] [address]- 8016 Apr, [facility] [place] [facility] [address] [id number] [place] [address]- 2033 Apr, [facility] [place] [facility] [address] [id number] [place] [address]- 8752 Apr, [facility] [place] [facility] [address] [facility] [id number] [place] [address]- 2685 Apr, [facility] [place] [facility] [address] [id number] [place] [address] 2546 Apr, [facility] [place] [facility] [address] [id number] [place] [address]- 2546 Apr, [facility] [place] [facility] [address] [id number] [place] [address] Apr, [facility] [place] [facility] [address] [id number] [place] [address]- 2546 Apr, [facility] [place] [facility] [address] [facility] [id number] [place] [address] Apr, [facility] [place] [facility] [address] [id number] [place] [address]- 6752 Apr, [facility] [place] [facility] [address] [id number] [place] [address]- 4283 Apr, [facility] [place] [facility] [address] [id number] [place] [address]- 8432 Apr, [facility] [place] [facility] [address] [id number] [place] [address]- 7246 Apr, [facility] [place] [facility] [address] [id number] [place] [address]- 4735 Apr, [facility] [place] [facility] [address] [id number] [place] [address]- 6622 Apr, [facility] [place] [facility] [address] [id number] [place] [address]- 5043 Apr, [facility] [place] [facility] [address] [id number] [place] [address]- 7845 Apr, [facility] [place] [facility] [address] [id number] [place] [address]- 1037 Apr, [facility] [place] [facility] [address] [id number] [place] [address]- 3371 Apr, [facility] [place] [facility] [address] [id number] [place] [address]- 7333 Apr, [facility] [place] [facility] [address] [id number] [place] [address]- 4267 Mar, [facility] [place] [facility] [address] [id number] [place] [address]- 8460 Mar, [facility] [place] [facility] [address] [id number] [place] [address]- 4193 Mar, [facility] [place] [facility] [address] [id number] [place] [address]- 8530 Mar, [facility] [place] [facility] [address] [id number] [place] [address]- 6007 Mar, [facility] [place] [facility] [address] [id number] [place] [address]- 4202 Mar, [facility] [place] [facility] [address] [id number] [place] [address]- 3695 Mar, [facility] [place] [facility] [address] [id number] [place] [address]- 9079 Mar, [facility] [place] [facility] [address] [id number] [place] [address]- 6752 Mar, [facility] [place] [facility] [address] [id number] [place] [address]- 1753 Mar, [facility] [place] [facility] [address] [id number] [place] [address]- 0661 Mar, [facility] [place] [facility] [address] [id number] [place] [address]- 1689 Mar, [facility] [place] [facility] [address] [id number] [place] [address]- 0469 Mar, [facility] [place] [facility] [address] [id number] [place] [address]- 1004 Feb, [facility] [place] [facility] [address] [id number] [place] [address]- 0060 Feb, [facility] [place] [facility] [address] [id number] [place] [address]- 0000 Feb, [facility] [place] [facility] [address] [id number], [place] [address]- 9584 Feb, [facility] [place] [facility] [address] [id number] [place] [address]- 5011 Feb, [facility] [place] [facility] [address] [id number], [place] [address]- 7984 Feb, [facility] [place] [facility] [address] [id number], [place] [address]- 1444 Feb, [facility] [place] [facility] [address] [id number] [place] [address]- 9106 Feb, [facility] [place] [facility] [address] [id number] [place] [address]- 7043 Feb, [facility] [place] [facility] [address] [id number] [place] [address]- 3636 Feb, [facility] [place] [facility] [address] [id number] [place] [address]- 2728 Feb, [facility] [place] [facility] [address] [id number] [place] [address]- 2628 Feb, [facility] [place] [facility] [address] [id number] [place] [address]- 1049 10 Feb, 2014 [facility] [place] [facility] [address] [id number] [place] [address]- 9771 Feb, [facility] [place] [facility] [address] [id number] [place] [address]- 8260 07 Feb, 2014 [facility] [place] [facility] [address] [id number] [place] [address]- 0853 10 Jan, 2014 [facility] [place] [facility] [address] [id number] [place] [address]- 2792 08 Jan, 2014 [facility] [place] [facility] [address] [id number] [place] [address]- 8170 08 Jan, 2014 [facility] [place] [facility] [address] [id number] [place] [address]- 7100 08 Jan, 2013 [facility] [place] [facility] [address] [id number] [place] [address]- 7255 08 Jan, 2014 [facility] [place] [facility] [address] [id number] [place] [address]- 4165 Dec, [facility] [place] [facility] [address] [id number] [place] [address]- 4161 Dec, [facility] [place] [facility] [address] [id number] [place] [address]- 8581 Dec, [facility] [place] [facility] [address] [id number] [place] [address]- 2802 Dec, [facility] [place] [facility] [address] [id number] [place] [address]- 9108 Nov, [facility] [place] [facility] [address] [id number] [place] [address]- 4521 Nov, [facility] [place] [facility] [address] [id number] [place] [address]- 6584 Nov, [facility] [place] [facility] [address] [id number] [place] [address]- 1337 Nov, [facility] [place] [facility] [address] [id number] [place] [address]- 7533 Nov, [facility] [place] [facility] [address] [id number] [place] [address]- 5227 Nov, [facility] [place] [facility] [address] [id number] [place] [address]- 8356 Nov, [facility] [place] [facility] [address] [id number] [place] [address]- 8650 Nov, [facility] [place] [facility] [address] [id number] [place] [address]- 7297 Nov, [facility] [place] [facility] [address] [id number] [place] [address]- 9100 Nov, [facility] [place] [facility] [address] [id number] [place] [address]- 2202 Oct, [facility] [place] [facility] [address] [id number] [place] [address]- 7710 Oct, [facility] [place] [facility] [address] [id number] [place] [address]- 4922 September, [facility] [place] [facility] [address] [id number] [place] [address]- 9529 September, [facility] [place] [facility] [address] [id number] [place] [address]- 5210 September, [facility] [address] [id number] [place] [address]- 6176 September, [facility] [place] [facility] [address] [id number] [place] [address]- 8416 16 Aug, 2013 [facility] [place] [facility] [address] [id number] [place] [address]- 8496 Aug, [facility] [place] [facility] [address] [id number] [place] [address]- 9150 Aug, [facility] [place] [facility] [address] [id number] [place] [address]- 7058 Jul, [facility] [place] [facility] [address] [id number] [place] [address]- 2310 24 Jul, 2013 [facility] [place] [facility] [address] [id number] [place] [address]- 4149 Jul, [facility] [place] [facility] [address] [id number] [place] [address]- 8901 Jul, [facility] [place] [facility] [address] [id number] [place] [address]- 6082 May, [facility] [place] [facility] [address] [id number] [place] [address]- 6317 May, [facility] [place] [facility] [address] [id number] [place] [address]- 8624 May, [facility] [place] [facility] [address] [id number] [place] [address]- 3777 15 Mar, 2013 [facility] [place] [facility] [address] [id number] [place] [address]- 2452 15 Mar, 2013 [facility] [place] [facility] [address] [id number] [place] [address]- 3287 13 Mar, 2013 [facility] [place] [facility] [address] [id number] [place] [address]- 4153 Mar, [facility] [place] [facility] [address] [id number] [place] [address] 2547 Feb, [facility] [place] [facility] [address] [id number] [place] [address]- 2546 Feb, [facility] [place] [facility] [address] [id number] [place] [address]- 2546 Feb, [facility] [place] [facility] [address] [id number] [place] [address]- 2548 Jan, [facility] [address] [id number] [place] [address]- 4459 Jan, [facility] [place] [facility] [address] [id number] [place] [address]- 2541 Jan, [facility] [address] [id number] [place] [address]- 9227 Dec, [facility] [place] [facility] [address] [id number] [place] [address]- 0042 Dec, [facility] [place] [facility] [address] [id number] [place] [address]- 1654 Dec, [facility] [place] [facility] [address] [id number] [place] [address]- 7508 Dec, [facility] [place] [facility] [address] [id number] [place] [address]- 9517 Nov, [facility] [place] [facility] [address] [id number] [place] [address]- 2540 Oct, [facility] [place] [facility] [address] [id number] [place] [address]- 254 Oct, [facility] [place] [facility] [address] [id number] [place] [address]- 8796 September, [facility] [place] [facility] [address] [id number] [place] [address]- 2549 September, [facility] [place] [facility] [address] [id number] [place] [address]- 2531 September, [facility] [address] [id number] [place] [address]- 1978 30 Aug, 2012 [facility] [address] [id number] [place] [address]- 3864 18 Aug, 2012 [facility] [address] [id number] [place] [address]- 5917 Aug, [facility] [address] [id number] [place] [address]- 1027 Aug, [facility] [address] [id number] [place] [address]- 1946 26 Jul, 2012 [facility] [address] [id number] [place] [address]- 7649 25 Jul, 2012 [facility] [address] [id number] [place] [address]- 0314 Jul, [facility] [address] [id number] [place] [address]- 4695 15 Jul, 2012 [facility] [address] [id number] [place] [address]- 4647 14 Jul, 2012 [facility] [address] [id number] [place] [address]- 9301 Jul, [facility] [address] [id number] [place] [address]- 7447 Jul, [facility] [place] [facility] [address] [id number] [place] [address]- 4759 Jun, [facility] [place] [facility] [address] [id number] [place] [address]- 7034 Jun, [facility] [place] [facility] [address] [id number] [place] Jun, [facility] [place] [facility] [address] [facility] [id number] [place] [address]2 Jun, [facility] [place] [facility] [address] [id number] [place] [address]- 7041 May, [facility] [place] [facility] [address] [id number] [place] [address]- 3997 May, [facility] [place] [facility] [address] [id number] [place] [address]- 2999 May, [facility] [place] [facility] [address] [id number] [place] [address]- 6019 May, [facility] [place] [facility] [address] [id number] [place] [address]- 3929 May, [facility] [place] [facility] [address] [id number] [place] [address]- 2132 Apr, [facility] [place] [facility] [address] [id number] [place] [address]- 2242 Apr, [facility] [place] [facility] [address] [id number] [place] [address]- 5370 Mar, [facility] [place] [facility] [address] [id number] [place] [address]- 0939 Mar, [facility] [place] [facility] [address] [id number] [place] [address]- 4416 Mar, [facility] [place] [facility] [address] [id number] [place] [address]- 9711 Mar, [facility] [place] [facility] [address] [id number] [place] [address]- 5648 Mar, [facility] [place] [facility] [address] [id number] [place] [address]- 1341 Mar, [facility] [place] [facility] [address] [id number] [place]177 Mar, [facility] [place] [facility] [address] [id number] [place] [address]- 1898 Mar, [facility] [place] [facility] [address] [id number] [place] [address]- 7640 Mar, [facility] [place] [facility] [address] [id number] [place] [address]- 3786 Mar, [facility] [place] [facility] [address] [id number] [place] [address]- 3626 Feb, [facility] [place] [facility] [address] [id number] [place] [address]- 6223 Feb, [facility] [place] [facility] [address] [id number] [place] [address]- 8798 Feb, [facility] [place] [facility] [address] [id number] [place] [address]- 5615 Feb, [facility] [place] [facility] [address] [id number] [place] [address]- 9457 Feb, [facility] [place] [facility] [address] [id number] [place] [address]- 9984 Feb, [facility] [place] [facility] [address] [id number] [place] [address]- 6079 Feb, [facility] [place] [facility] [address] [id number] [place] [address]- 1810 Jan, [facility] [place] [facility] [address] [id number] [place] [address]- 0523 Jan, [facility] [place] [facility] [address] [id number], [place] [address]- 2196 Dec, [facility] [place] [facility] [address] [id number], [place] [address]- 5543 Dec, [facility] [place] [facility] [address] [id number] [place] [address]- 7760 Dec, [facility] [place] [facility] [address] [id number] [place] [address]- 4776 Dec, [facility] [place] [facility] [address] [id number] [place] [address]- 2076 Dec, [facility] [place] [facility] [address] [id number] [place] [address]- 3164 Dec, [facility] [address] [id number] [place] [address]- 3676 Nov, [facility] [place] [facility] [address] [id number] [place] [address]- 8436 Nov, [facility] [address] [id number] [place] [address]- 9116 Nov, [facility] [place] [facility] [address] [id number] [place] [address]- 9705 Nov, [facility] [address] [id number] [place] [address]- 9761 September, [facility] [place] [facility] [address] [id number] [place] [address]- 9336 September, [facility] [address] [id number] [place] [address]- 8700 September, [facility] [address] [id number] [place] [address]- 3067 Jul, [facility] [place] [facility] [address] [id number] [place] [address]- 3904 Jun, [facility] [address] [id number] [place] [address]- 0392 Jun, [facility] [place] [facility] [address] [id number] [place] [address]- 0708 Jun, [facility] [address] [id number] [place] [address]- 3624 Apr, [facility] [place] [facility] [address] [id number] [place] [address]- 8467 Mar, [facility] [place] [facility] [address] [id number] [place] [address] 2546 Mar, [facility] [place] [facility] [address] [id number] [place] [address]- 7054 Feb, [facility] [address] [facility] [id number] [place] [address]- 0497 Feb, [facility] [address] [facility] [id number], [place] [address]- 3878 Feb, [facility] [address] [facility] [id number], [place] [address]- 0852 Jul, [facility] [address] [facility] [id number] 4212 Feb, IMMUNIZATIONS No Known Immunizations SOCIAL HISTORY Never Assessed REASON FOR VISIT PLAN OF CARE VITAL SIGNS MEDICATIONS Medication Instructions Dosage Frequency Start Date End Date Duration Status Pooler 7.5-325 MG Orally every 6 hrs 1 [...]
--- OUTSIDE RECORDS SUMMARY | 2018-02-02 23:44 | XMS REPORT ---
Author Author MACY TAMAYO Organization [facility] Address [address] [place] [address] Care Team Providers Care Cartography Teacher Name Role Phone MACY TAMAYO Unavailable PROBLEMS Type Condition ICD9-CM Code QCE86-ZV Code Onset Dates Condition Status SNOMED Code Problem Plantar wart of both feet B07.0 Active [id number] Problem Controlled type 2 diabetes mellitus without complication, without long -term current use of insulin E11.9 Active 193389794 Problem Lumbago with sciatica, left side M54.42 Active 314270427 Problem Lumbago with sciatica, right side M54.41 Active 200225529 Problem Morbid (severe) obesity due to excess calories E66.01 Active 120031164 Problem Body mass index (BMI) of 45.0-49.9 in adult Z68.42 Active 137765319 Problem Tachycardia with heart rate 121-140 beats per minute R00.0 Active 7554372 Problem Dermatomyositis M33.90 Active 371468277 Problem Enlarged thyroid gland E04.9 Active 6546738 Problem Allergic rhinitis due to pollen J30.1 Active 30519993 Problem Mood disorder F39 Active 43367886 Problem Menopause Z78.0 Active 598415267 Problem Anxiety F41.9 Active 92650464 Problem Other chronic pain G89.29 Active 97734160 Problem Diabetes type 2, controlled E11.9 Active 20640607 Problem Arthritis M19.90 Active 5867184 Problem Osteoarthritis of right knee, unspecified osteoarthritis type M17.9 Active 273527561 Problem Plantar warts B07.0 Active 95464290 ALLERGIES Substance Reaction Event Type Date Status Fluarix Quadrivalent vomiting Drug Allergy Aug, Active Zoloft makes very angry Drug Allergy Aug, Active Fluarix vomiting Drug Allergy Aug, Active Aspirin rash Drug Allergy Aug, Active Latex, Natural Rubber rash Non Drug Allergy Aug, Active ENCOUNTERS Encounter Location Date Diagnosis [facility] [address] [address] Jan, [facility] [id number] [place] [address] 75379- 4925 Dec, [facility] [id number] [place] [address] 46030- 1195 Dec, [facility] [id number] [place] [address] 25051- 5813 Nov, Lumbar radiculopathy M54.16 [facility] [id number] [place] [address] 07424- 6196 Nov, [facility] [id number] [place] [address] 82100- 0522 Nov, Mood disorder F39 [facility] [id number] [place] [address] 56245- 3309 Nov, Lumbago with sciatica, right side M54.41 and Other chronic pain G89.29 [facility] [id number] [place] [address] 44148- 4386 Nov, Acute right ankle pain M25.571 [facility] [id number] [place] [address] 96309- 8733 Nov, [facility] [id number] [place] [address] 71357- 4848 Oct, [facility] [id number] [place] [address] 04846- 8147 Oct, Plantar wart of both feet B07.0 [facility] [id number] [place] [address] 85511- 6847 Oct, [facility] [id number] [place] [address] 49386- 1205 Oct, Acute right ankle pain M25.571 and Plantar wart of both feet B07.0 [facility] [id number] [place] [address] 42734- 8897 September, Other chronic pain G89.29 [facility] [id number] [place] [address] 38315- 3575 September, Other chronic pain G89.29 [facility] [id number] [place] [address] 57330- 1546 September, Other chronic pain G89.29 [facility] [id number] [place] [address] 66277- 6523 Aug, Mood disorder F39 [facility] [id number] [place] [address] 30671- 9002 Aug, Other chronic pain G89.29 ; Controlled type 2 diabetes mellitus without complication, without long-term current use of insulin E11.9 ; Low back pain M54.5 and Tinea corporis B35.4 [facility] [address] 99569- 3449 Aug, Mood disorder F39 and Anxiety F41.9 [facility] [id number] [place] [address] 21986- 6283 Aug, Mood disorder F39 and Anxiety F41.9 [facility] [id number] [place] [address] 32272- 4794 Jul, [facility] [id number] [place] [address] 61553 -0159 Jul, Scabies B86 and BMI 45.0-49.9, adult Z68.42 [facility] [id number] [place] [address] 56939- 0539 Jul, [facility] [address] 76561- 8802 Jul, Mood disorder F39 and Anxiety F41.9 [facility] [id number] [place] [address] 98909- 5963 Jul, [facility] [address] 01359 -1105 27 Jun, 2017 Bronchitis J40 ; Dark urine R82.99 and BMI 45.0-49.9, adult Z68.42 [place] [id number]- 2806 14 Jun, 2017 Acute pain of right shoulder M25.511 and Acute pain of right knee M25.[address] 06659- 3229 May, BMI 40.0-44.9, adult Z68.41 ; Controlled type 2 diabetes mellitus without complication, without long-term current use of insulin E11.9 ; Muscle cramping R25.2 ; Hot flashes R23.2 ; Mood disorder F39 ; Anxiety F41.9 and Morbid (severe) obesity due to excess calories E66.[address] 64034- 9681 May, BMI 40.0-44.9, adult Z68.41 ; Controlled type 2 diabetes mellitus without complication, without long-term current use of insulin E11.9 ; Muscle cramping R25.2 and Hot flashes R23.[address] 25511- 0622 May, Tachycardia with heart rate 121-140 beats per minute R00.0 ; Morbid (severe) obesity due to excess calories E66.01 ; Diabetes type 2, controlled E11.9 and Enlarged thyroid gland E04.[address] 98141- 1464 May, Encounter for well woman exam with [...] and Screening breast examination Z12.31 [facility] [id number] [place] [address] 20704- 3806 Apr, Mood disorder F39 ; Other chronic pain G89.29 and Anxiety F41.9 [facility] [id number] [place] [address] 67666- 7995 Apr, Lumbago with sciatica, left side M54.42 and Other chronic pain G89.29 [facility] [id number] [place] [address] 44259- 2319 Apr, Lupus erythematosus L93.0 [facility] [address] 21544- 1635 Mar, Plantar wart of both feet B07.0 [facility] [id number] [place] [address] 92624- 3323 Mar, Lupus erythematosus L93.0 and Sinus drainage J34.89 [facility] [id number] [place] [address] 45410- 4692 Mar, Mood disorder F39 ; Other chronic pain G89.29 and Anxiety F41.9 [facility] [id number] [place] [address] 81920- 2596 Mar, Mood disorder F39 ; Arthritis M19.90 and Plantar warts B07.0 [facility] [id number] [place] [address] 14318- 0214 Feb, Lupus erythematosus L93.0 [facility] [id number] [place] [address] 29392- 2542 Feb, Other chronic pain G89.29 [facility] [id number] [place] [address] 54900- 8406 Feb, Mood disorder F39 and Anxiety F41.9 [facility] [id number] [place] [address] 15506- 2282 Jan, [facility] [id number] [place] [address] 46198- 0689 Jan, Mood disorder F39 [facility] [id number] [place] [address] 53750- 7789 Dec, Nail, ingrown L60.0 [facility] [id number] [place] [address] 86774- 5472 Dec, Nail, ingrown L60.0 [facility] [id number] [place] [address] 07907- 4755 Nov, Mood disorder F39 and Anxiety F41.9 [facility] [id number] [place] [address] 90939- 2188 Nov, Sinus drainage J34.89 ; Hot flashes R23.2 ; Anxiety F41.9 and Diabetes type 2, controlled E11.9 [facility] [id number] [place] [address] 24325- 5194 Nov, Nail, ingrown L60.0 [facility] [id number] [place] [address] 74973- 4553 Oct, Anxiety F41.9 and Mood disorder F39 [facility] [id number] [place] [address] 18542- 5467 Oct, Nail, ingrown L60.0 and Anxiety F41.9 [facility] [id number] [place] [address] 88525- 1996 Oct, Lupus erythematosus L93.0 [facility] [id number] [place] [address] 33687- 0584 September, [facility] [id number] [place] [address] 55108- 8405 September, [facility] [id number] [place] [address] 79153- 3700 September, Lupus erythematosus L93.0 [facility] [id number] [place] [address] 86780- 3360 Aug, [facility] [id number] [place] [address] 66960- 1236 Aug, Mood disorder F39 and Anxiety F41.9 [facility] [id number] [place] [address] 39155 2546 Aug, Lupus erythematosus L93.0 ; Diabetes type 2, controlled E11.9 and Localized edema R60.0 [facility] [id number] [place] [address] 97520- 4658 Aug, [facility] [id number] [place] [address] 24998- 5481 Jul, Anxiety F41.9 and Mood disorder F39 [facility] [facility] [id number] [place] [address] 36240- 5827 Jul, Diabetes type 2, controlled E11.9 [facility] [id number] [place] [address] 90580- 3455 Jun, Anxiety F41.9 [facility] [id number] [place] [address] 20321- 3246 May, [facility] [id number] [place] [address] 26148- 8683 May, [facility] [id number] [place] [address] 52191- 0480 May, Nausea R11.0 ; Other chronic pain G89.29 and Pain in right knee M25.561 [facility] [facility] [id number] [place] [address] 36546- 0625 May, [facility] [id number] [place] [address] 55354- 2547 Apr, Tear of medial meniscus of right knee, current, unspecified tear type, subsequent encounter S83.241D and Tear of lateral meniscus of right knee, current, unspecified tear type, subsequent encounter S83.281D [facility] [facility] [id number] [place] [address] 79232- 6515 Apr, Anxiety F41.9 and Mood disorder F39 [facility] [id number] [place] [address] 39093- 9463 Apr, Anxiety F41.9 [facility] [id number] [place] [address] 30924- 3299 Apr, [facility] [address] 92911- 1279 Mar, [facility] [id number] [place] [address] 57981- 1056 Mar, Lupus erythematosus L93.0 and Diabetes type 2, controlled E11.9 [facility] [id number] [place] [address] 43195- 7989 Mar, Mood disorder F39 [facility] [id number] [place] [address] 13675- 6893 Mar, Tear of lateral meniscus of right knee, current, unspecified tear type, initial encounter S83.281A and Osteoarthritis of right knee, unspecified osteoarthritis type M17.9 [facility] [id number] [place] [address] 00890- 7246 Mar, [facility] [id number] [place] [address] 39868- 2336 Feb, Mood disorder F39 [facility] [id number] [place] [address] 26670- 3320 Feb, Rash R21 [facility] [id number] [place] [address] 49310- 7952 Feb, [facility] [id number] [place] [address] 04316- 6825 Jan, Other chronic pain G89.29 and Muscle spasm M62.838 [facility] [id number] [place] [address] 10311- 0505 Jan, Mood disorder F39 [place] [id number] [place] [address] 89760- 4330 Jan, Pain in right knee M25.561 ; Other chronic pain G89.29 and Muscle spasm M62.838 [place] [id number] [place] [address] 42701- 7206 Dec, [facility] [id number] [place] [address] 12401- 6612 Dec, [facility] [id number] [place] [address] 90426- 3087 Nov, [facility] [id number] [place] [address] 33039- 6988 Nov, Mood disorder F39 [facility] [id number] [place] [address] 75229- 7236 Nov, Diabetes type 2, controlled E11.9 ; Bronchitis J40 ; Edema, unspecified type R60.9 ; Weight gain R63.5 and Right knee pain, unspecified chronicity M25.561 [facility] [id number] [place] [address] 47085- 5767 Oct, Mood disorder F39 [facility] [id number] [place] [address] 81984- 8419 Oct, Lupus erythematosus L93.0 and Bilateral edema of lower extremity R60.0 [facility] [id number] [place] [address] 57123- 2376 Oct, Mood disorder F39 and Anxiety F41.9 [facility] [id number] [place] [address] 67151- 6180 September, Mood disorder F39 ; Anxiety F41.9 and Anger reaction R45.4 [place] [id number] [place] [address] 68302- 7904 September, Diabetes type 2, controlled E11.9 ; Edema, unspecified type R60.9 and Fatigue, unspecified type R53.83 [place] [address] [address]- 0997 Aug, Mood disorder F39 and Generalized anxiety disorder F41.1 [facility] [id number] [place] [address] 51168- 5366 Aug, Diabetes type 2, controlled E11.9 ; Sinusitis J32.9 and Mood disorder F39 [facility] [id number] [place] [address] 63094- 6956 Aug, Lupus erythematosus L93.0 [facility] [id number] [place] [address] 71240- 9486 Aug, [facility] [id number] [place] [address] 11344- 7267 Aug, [facility] [id number] [place] [address] 53125- 6401 Jul, Diabetes type 2, controlled E11.9 [facility] [id number] [place] [address] 30924- 8395 Jul, Mood disorder F39 and Depression F32.9 [facility] [id number] [place] [address] 26391- 3622 Jul, Lupus erythematosus L93.0 and Diabetes type 2, controlled E11.9 [facility] [address] [address]- 7516 Jul, Mood disorder F39 and Anxiety F41.9 [facility] [address] [address]- 8616 Jul, [facility] [id number] [place] [address] 40835 2546 Jul, [facility] [id number] [place] [address] 22141- 2541 Jun, Mood disorder F39 and Anxiety F41.9 [facility] [id number] [place] [address] 28578- 7660 Jun, Mood disorder F39 [facility] [address] [address]- 7428 18 Jun, 2015 [facility] [id number] [place] [address] 29268- 2917 Jun, [facility] [id number] [place] [address] 39002- 8579 Jun, Mood disorder F39 [facility] [id number] [place] [address] 23606- 1023 Jun, [facility] [id number] [place] [address] 05309- 8956 May, [facility] [id number] [place] [address] 35108- 6460 May, [facility] [id number] [place] [address] 85111- 6567 May, [facility] [id number] [place] [address] 42188- 4390 May, [facility] [id number] [place] [address] 89408- 4528 May, Anxiety F41.9 ; Dermatomyositis M33.90 and Diabetes type 2, controlled E11.9 [facility] [id number] [place] [address] 24290 -1026 May, Sinusitis J32.9 and Cough R05 [facility] [address] [address]- 7556 May, Mood disorder F39 [facility] [id number] [place] [address] 40235- 2578 May, Adjustment disorder with mixed anxiety and depressed mood F43.23 [facility] [address] [address]- 9972 Apr, [facility] [id number] [place] [address] 10718- 7071 Apr, [facility] [id number] [place] [address] 06864- 7071 Apr, Generalized anxiety disorder F41.1 and Mood disorder F39 [facility] [id number] [place] [address] 54168- 7756 Mar, [facility] [id number] [place] [address] 53819- 5003 Mar, [facility] [id number] [place] [address] 72305- 6712 Mar, [facility] [id number] [place] [address] 65885- 9149 Mar, Mood disorder F39 [facility] [id number] [place] [address] 15190- 9496 Feb, [facility] [id number] [place] [address] 99642- 4973 Feb, Diabetes E11.9 and Bronchitis J40 [facility] [id number] [place] [address] 61702- 1740 Feb, [facility] [id number] [place] [address] 59705- 8839 Feb, [facility] [id number] [place] [address] 40806- 0465 Feb, Major depression, recurrent, full remission F33.42 and KELLY ( generalized anxiety disorder) F41.1 [facility] [id number] [place] [address] 43123- 9637 Feb, [facility] [id number] [place] [address] 61077- 1542 Feb, Single major depressive episode, in partial or unspecified remission F32.5 [facility] [address] [address]- 0618 Jan, Fatigue 780.79 [facility] [place] [address] [id number] [place] [address] 23504- 6851 Jan, [facility] [id number] [place] [address] 30106- 7375 Jan, Diabetes with other specified manifestations, type II or unspecified type, not stated as uncontrolled 250.80 [place] [address] [id number] [place] [address] 94940- 8858 Jan, [facility] [address] 70721- 2638 Dec, Hot flashes 627.2 ; Memory loss 780.93 and Joint pain 719.[address] 86724- 9667 Dec, Major depression, recurrent 296.30 ; Generalized anxiety disorder 300.02 ; Adjustment disorder with depressed mood 309.0 and No condition on Cranks II V71.09 [place] [id number] [place] [address] 05847- 3918 Dec, [facility] [id number] [place] [address] 10584- 3275 Nov, Cognitive and neurobehavioral dysfunction 294.9 ; Major depressive disorder, recurrent episode, moderate degree 296.32 and Anxiety state , unspecified 300.00 [place] [id number] [place] [address] 68610- 9509 Nov, [place] [id number] [place] [address] 64341- 2709 Nov, Bronchitis 490 and Diabetes with other specified manifestations, type II or unspecified type, not stated as uncontrolled 250.80 [place] [id number] [place] [address] 19899- 9463 Nov, Major depressive disorder, recurrent episode, moderate 296.32 and Anxiety disorder, unspecified 300.[address] [place] [address] 97025- 0630 Nov, Anxiety, generalized 300.02 ; Intermittent explosive disorder 312.34 ; No condition on Cranks II V71.09 and No condition on axis III V71.09 [place] [id number] [place] [address] 39983- 1760 Oct, Diabetes with other specified manifestations, type II or unspecified type, not stated as uncontrolled 250.80 ; Urinary tract infection, site not specified 599.0 and Bronchitis [address] [place] [id number] [place] [address] 44117- 9443 Oct, Intermittent explosive disorder 312.34 ; Bipolar 1 disorder , depressed, moderate 296.52 ; Major depression, chronic 296.20 ; No condition on Cranks II V71.09 and No condition on axis III V71.09 [place] [id number] [place] [address] 16488- 1143 Oct, Major depressive disorder, recurrent episode, moderate 296.32 ; Anxiety state 300.00 ; Cognitive decline 294.9 and No condition on Cranks II V71.09 [place] [id number] [place] [address] 32602- 9876 Oct, [place] [id number] [place] [address] 78523- 6986 Oct, Major depressive disorder, recurrent episode, moderate 296.32 ; Anxiety disorder, unspecified 300.00 and Persistent disorder of initiating or maintaining sleep 307.42 [address] [place] [address] 99608- 8257 September, Diabetes with other specified manifestations, type II or unspecified type, not stated as uncontrolled 250.80 ; Memory loss 780.93 and Cognitive complaints 799.59 [place] [id number] [place] [address] 83783- 2740 September, No condition on Cranks II V71.09 ; Major depression, recurrent 296.30 and Persistent mood [affective] disorder, unspecified 296.90 [place] [id number] [place] [address] 66018- 4550 Aug, [place] [id number] [place] [address]- 5097 14 Aug, 2014 [facility] [place] [facility] [address] [id number] [place] [address]- [address] 13 Aug, 2014 [facility] [place] [facility] [address] [id number] [place] Jul, 2014 [facility] [place] [facility] [address] [facility] [id number] [place] [address] Jul, 2014 [facility] [place] [facility] [address] [id number] [place] [address] Jul, [facility] [place] [facility] [address] [id number] [place] [address] Jul, [facility] [place] [facility] [address] [facility] [id number] [place] [address] Jul, [facility] [place] [facility] [address] [id number] [place] [address] Jun, 2014 [facility] [place] [facility] [address] [facility] [id number] [place] [address] Jun, 2014 [facility] [place] [facility] [id number] [place] [address] Jun, [facility] [place] [facility] [address] [id number] [place] [address] Jun, 2014 [facility] [place] [facility] [address] [facility] [id number] [place] [address] Jun, 2014 [facility] [place] [facility] [address] [facility] [id number] [place] [address] Jun, 2014 [facility] [place] [facility] [address] [facility] [id number] [place] [address] Jun, [facility] [place] [facility] [address] [facility] [id number] [place] [address] [address] 05 Jun, 2014 [facility] [place] [facility] [id number] [place] [address] Jun, 2014 [facility] [place] [facility] [address] [id number] [place] [address]- [address] Jun, 2014 [facility] [place] [facility] [address] [id number] [place] [address] Jun, 2014 [facility] [place] [facility] [address] [facility] [id number] [place] [address]- [address] Jun, 2014 [facility] [place] [facility] [address] [id number] [place] [address] Jun, 2014 [facility] [place] [facility] [address] [id number] [place] [address] May, [facility] [place] [facility] [address] [facility] [id number] [place] [address] May, [facility] [address] [facility] [id number] [place] [address] Apr, [facility] [place] [facility] [address] [facility] [id number] [place] [address] Apr, [facility] [place] [facility] [address] [facility] [id number] [place] [address] 1984 Apr, [facility] [place] [facility] [address] [facility] [id number] [place] [address] Apr, [facility] [place] [facility] [address] [facility] [id number] [place] [address] Apr, [facility] [place] [facility] [address] [facility] [id number] [place] [address] 1119 Apr, [facility] [place] [facility] [address] [facility] [id number] [place] [address] 2992 Apr, [facility] [place] [facility] [address] [facility] [id number] [place] [address] 7057 Apr, [facility] [place] [facility] [address] [facility] [id number] [place] [address] 1016 15 Apr, 2014 [facility] [place] [facility] [address] [id number] [place] [address] 15 Apr, 2014 [facility] [place] [facility] [address] [id number] [place] [address]- 1657 Apr, [facility] [place] [facility] [address] [id number] [place] [address]- 4286 Apr, [facility] [place] [facility] [address] [id number] [place] [address]- 2445 Apr, [facility] [place] [facility] [address] [id number] [place] [address]- 1480 Apr, [facility] [place] [facility] [address] [id number] [place] [address]- 7580 Apr, [facility] [place] [facility] [address] [id number] [place] [address]- 6652 Apr, [facility] [place] [facility] [address] [id number] [place] [address]- 5262 Apr, [facility] [place] [facility] [address] [id number] [place] [address]- 6359 Apr, [facility] [place] [facility] [address] [id number] [place] [address]- 2274 Apr, [facility] [place] [facility] [address] [id number] [place] [address]- 7620 Apr, [facility] [place] [facility] [address] [id number] [place] [address]- 1584 Mar, [facility] [place] [facility] [address] [id number] [place] [address]- 6575 Mar, [facility] [place] [facility] [address] [id number] [place] [address]- 2168 Mar, [facility] [place] [facility] [address] [id number] [place] [address]- 8943 Mar, [facility] [place] [facility] [address] [id number] [place] [address]- 1696 Mar, [facility] [place] [facility] [address] [id number] [place] [address]- 4524 Mar, [facility] [place] [facility] [address] [id number] [place] [address]- 4412 Mar, [facility] [place] [facility] [address] [id number] [place] [address]- 3831 Mar, [facility] [place] [facility] [address] [id number] [place] [address]- 5816 Mar, [facility] [place] [facility] [address] [id number] [place] [address]- 3812 Mar, [facility] [place] [facility] [address] [id number] [place] [address]- 7202 Mar, [facility] [place] [facility] [address] [id number] [place] [address]- 8335 Mar, [facility] [place] [facility] [address] [id number] [place] [address]- 4595 Mar, [facility] [place] [facility] [address] [id number] [place] [address]- 2247 Feb, [facility] [place] [facility] [address] [id number] [place] [address]- 59[address] Feb, [facility] [place] [facility] [address] [id number] [place] [address]- 9365 30 Feb, 2014 [facility] [place] [facility] [address] [id number] [place] [address]- 4660 Feb, [facility] [place] [facility] [address] [id number] [place] [address]- 1424 Feb, [facility] [place] [facility] [address] [id number] [place] [address] 6985 Feb, [facility] [place] [facility] [address] [id number] [place] [address]- 0334 Feb, [facility] [place] [facility] [address] [id number] [place] [address]- 4354 Feb, [facility] [place] [facility] [address] [id number] [place] [address]- 0733 Feb, [facility] [place] [facility] [address] [id number] [place] [address]- 2111 Feb, [facility] [place] [facility] [address] [id number] [place] [address]- 2420 Feb, [facility] [place] [facility] [address] [id number] [place] [address]- 7813 10 Feb, 2014 [facility] [place] [facility] [address] [id number] [place] [address]- 1300 10 Feb, 2014 [facility] [place] [facility] [address] [id number] [place] [address]- 3444 Feb, [facility] [place] [facility] [address] [id number] [place] [address]- 4391 07 Feb, 2014 [facility] [place] [facility] [address] [id number] [place] [address]- 3217 10 Jan, 2013 [facility] [place] [facility] [address] [id number] [place] [address]- 3264 08 Jan, 2013 [facility] [place] [facility] [address] [id number] [place] [address]- 0727 08 Jan, 2014 [facility] [place] [facility] [address] [id number] [place] [address]- 2441 08 Jan, 2013 [facility] [place] [facility] [address] [id number] [place] [address]- 4827 08 Jan, 2013 [facility] [place] [facility] [address] [id number] [place] [address]- 7252 Dec, [facility] [place] [facility] [address] [id number] [place] [address]- 2493 Dec, [facility] [place] [facility] [address] [id number] [place] [address]- 6664 Dec, [facility] [place] [facility] [address] [id number] [place] [address]- 4645 Dec, [facility] [place] [facility] [address] [id number] [place] [address]- 8515 Nov, [facility] [place] [facility] [address] [id number] [place] [address]- 1880 Nov, [facility] [place] [facility] [address] [id number] [place] [address]- 0858 Nov, [facility] [place] [facility] [address] [id number] [place] [address]- 5590 Nov, [facility] [place] [facility] [address] [id number] [place] [address]- 8964 Nov, [facility] [place] [facility] [address] [id number] [place] [address]- 0262 Nov, [facility] [place] [facility] [address] [id number] [place] [address]- 2680 Nov, [facility] [place] [facility] [address] [id number] [place] [address]- 9949 Nov, [facility] [place] [facility] [address] [id number] [place] [address]- 5519 Nov, [facility] [place] [facility] [address] [id number] [place] [address]- 2653 Nov, [facility] [place] [facility] [address] [id number] [place] [address]- 6964 Oct, [facility] [place] [facility] [address] [id number] [place] [address]- 7289 Oct, [facility] [place] [facility] [address] [id number] [place] [address]- 2974 September, [facility] [place] [facility] [address] [id number] [place] [address]- 0270 September, [facility] [place] [facility] [address] [id number] [place] [address]- 0876 September, [facility] [place] [facility] [address] [id number] [place] [address]- 1921 September, [facility] [place] [facility] [address] [id number] [place] [address]- 8222 16 Aug, 2013 [facility] [place] [facility] [address] [id number] [place] [address]- 9161 Aug, [facility] [place] [facility] [address] [id number] [place] [address]- 5194 Aug, [facility] [place] [facility] [address] [id number] [place] [address]- 0070 Jul, [facility] [place] [facility] [address] [id number] [place] [address]- 2052 24 Jul, 2013 [facility] [place] [facility] [address] [id number] [place] [address]- 6084 Jul, [facility] [place] [facility] [address] [id number] [place] [address]- 6526 Jul, [facility] [place] [facility] [address] [id number] [place] [address]- 7317 May, [facility] [place] [facility] [address] [id number] [place] [address]- 3348 May, [facility] [place] [facility] [address] [id number] [place] [address]- 5008 May, [facility] [place] [facility] [address] [id number] [place] [address]- 3218 15 Mar, 2013 [facility] [place] [facility] [address] [id number] [place] [address]- 7307 15 Mar, 2013 [facility] [place] [facility] [address] [id number] [place] [address]- 1889 13 Mar, 2013 [facility] [place] [facility] [address] [id number] [place] [address]- 8014 Mar, [facility] [place] [facility] [address] [id number] [place] [address] 2543 Feb, [facility] [address] [id number] [place] [address]- 2496 Feb, [facility] [address] [id number] [place] [address] 2546 Feb, [facility] [address] [id number] [place] [address]- 2682 Jan, [facility] [address] [id number] [place] [address]- 6683 Jan, [facility] [address] [id number] [place] [address]- 8007 Jan, [facility] [address] [id number] [place] [address]- 2135 Dec, [facility] [address] [id number] [place] [address]- 6303 Dec, [facility] [address] [id number] [place] [address]- 2477 Dec, [facility] [address] [id number] [place] [address]- 5526 Dec, [facility] [address] [id number] [place] [address]- 4013 Nov, [facility] [place] [facility] [address] [id number] [place] [address]- 5725 Oct, [facility] [address] [id number] [place] [address]- 2549 Oct, [facility] [place] [facility] [address] [id number] [place] [address]- 7695 September, [facility] [place] [facility] [address] [id number] [place] [address]- 2546 September, [facility] [place] [facility] [address] [id number] [place] [address]- 2390 September, [facility] [address] [id number] [place] [address]- 9060 30 Aug, 2012 [facility] [address] [id number] [place] [address]- 7572 Aug, [facility] [address] [id number] [place] [address]- 0849 Aug, [facility] [place] [facility] [address] [id number] [place] [address]- 4926 Aug, [facility] [address] [id number] [place] [address]- 9667 26 Jul, 2012 [facility] [place] [facility] [address] [id number] [place] [address]- 1736 25 Jul, 2012 [facility] [address] [id number] [place] [address]- 8836 Jul, [facility] [address] [id number] [place] [address]- 2734 15 Jul, 2012 [facility] [address] [id number] [place] [address]- 8784 14 Jul, 2012 [facility] [address] [id number] [place] [address]- 9018 Jul, [facility] [place] [facility] [address] [id number] [place] [address]- 4473 Jul, [facility] [place] [facility] [address] [id number] [place] [address]- 9346 Jun, [facility] [place] [facility] [address] [id number] [place] [address]- 7496 Jun, [facility] [place] [facility] [address] [id number] [place] [address]- 0686 Jun, [facility] [place] [facility] [address] [id number] [place] [address]- 9536 Jun, [facility] [place] [facility] [address] [id number] [place] [address]- 8204 31 May, 2012 [facility] [address] [id number] [place] [address]- 3487 30 May, 2012 [facility] [place] [facility] [address] [id number] [place] [address]- 4947 30 May, 2012 [facility] [address] [id number] [place] [address]- 5231 May, [facility] [place] [facility] [address] [id number] [place] [address]- 7247 May, [facility] [place] [facility] [address] [id number] [place] [address]- 6709 Apr, [facility] [place] [facility] [address] [id number] [place] [address]- 5864 Apr, [facility] [address] [id number] [place] [address]- 9026 Mar, [facility] [place] [facility] [address] [id number] [place] [address]- 7021 Mar, [facility] [place] [facility] [address] [id number] [place] [address]- 1717 Mar, [facility] [place] [facility] [address] [id number] [place] [address]- 5863 Mar, [facility] [place] [facility] [address] [id number] [place] [address]- 8108 Mar, [facility] [place] [facility] [address] [id number] [place] [address]- 1519 Mar, [facility] [place] [facility] [address] [id number] [place] [address]- 8012 Mar, [facility] [place] [facility] [address] [id number] [place] [address]- 6606 Mar, [facility] [place] [facility] [address] [id number] [place] [address]- 0648 Mar, [facility] [place] [facility] [address] [id number] [place] [address]- 8134 Mar, [facility] [place] [facility] [address] [id number] [place] [address]- 3857 Feb, [facility] [place] [facility] [address] [id number] [place] [address]- 6265 Feb, [facility] [place] [facility] [address] [id number] [place] [address]- 5158 Feb, [facility] [place] [facility] [address] [id number] [place] [address]- 6529 Feb, [facility] [place] [facility] [address] [id number] [place] [address]- 4793 Feb, [facility] [place] [facility] [address] [id number] [place] [address]- 6910 Feb, [facility] [place] [facility] [address] [id number] [place] [address]- 1053 Feb, [facility] [place] [facility] [address] [id number] [place] [address]- 8036 Jan, [facility] [place] [facility] [address] [id number] [place] [address]- 2314 Jan, [facility] [place] [facility] [address] [id number] [place] [address]- 0592 Dec, [facility] [place] [facility] [address] [id number] [place] [address]- 1630 Dec, [facility] [place] [facility] [address] [id number] [place] [address]- 8915 Dec, [facility] [place] [facility] [address] [id number] [place] [address]- 4731 Dec, [facility] [place] [facility] [address] [id number] [place] [address]- 5959 Dec, [facility] [place] [facility] [address] [id number] [place] [address]- 5606 Dec, [facility] [place] [facility] [address] [id number] [place] [address]- 0675 Nov, [facility] [place] [facility] [address] [id number] [place] [address]- 0759 Nov, [facility] [place] [facility] [address] [id number] [place] [address]- 4995 Nov, [facility] [place] [facility] [address] [id number] [place] [address]- 4971 Nov, [facility] [place] [facility] [address] [id number] [place] [address]- 3625 September, [facility] [place] [facility] [address] [id number] [place] [address]- 9589 September, [facility] [place] [facility] [address] [id number] [place] [address]- 9174 September, [facility] [place] [facility] [address] [id number] [place] [address]- 7443 Jul, [facility] [place] [facility] [address] [id number] [place] [address]- 3718 Jun, [facility] [place] [facility] [address] [id number] [place] [address]- 0051 Jun, [facility] [place] [facility] [address] [id number] [place] [address]- 7729 Jun, [facility] [place] [facility] [address] [id number] [place] [address]- 6532 Apr, [facility] [place] [facility] [address] [id number] [place] [address]- 7466 Mar, [facility] [place] [facility] [address] [id number] [place] [address]- 9867 Mar, [facility] [place] [facility] [address] [id number] [place] [address]- 7815 Feb, [facility] [place] [facility] [address] [id number] [place] [id number] 31 Feb, 2011 [facility] [address] [facility] [id number] [place] [address]- 9705 11 Feb, 2011 [facility] [address] [facility] [id number] [place] [address]- 2721 Jul, [facility] [address] [facility] [id number] [place] [address]- 2202 Feb, IMMUNIZATIONS Vaccine Route Administration Date Status TORADOL (IM) 60 MG/2ML (UP TO 15 MG) IM Intramuscular September 11, 2017 Administered SOCIAL HISTORY Never Assessed REASON FOR VISIT Back pain and shoulders has been getting worse and not currently taking any pain medication and ivanna no longer works and anger has increased-Dorian MARROQUIN PLAN OF CARE VITAL SIGNS Height 62 in 2017-09-11 Weight 254.4 lbs 2017-09-11 Temperature 97.7 degrees Fahrenheit 2017-09-11 Heart Rate 82 bpm 2017-09-11 Respiratory Rate 18 2017-09-11 BMI 46.53 kg/m2 2017-09-11 Blood pressure systolic 102 mmHg 2017-09-11 Blood pressure diastolic 76 mmHg 2017-09-11 MEDICATIONS Medication Instructions Dosage Frequency Start Date End Date Duration Status Glucocard Expression Test - as directed 24h Nov, 50 Active Folic Acid 1 MG TAKE ONE TABLET BY MOUTH ONCE DAILY (DO NOT TAKE ON DAYS YOU TAKE METHOTREXATE) 30 Active [place] 7.5-325 MG Orally every 6 hrs 1 tablet as needed 6h Aug, Active Benzonatate 100 MG TAKE ONE CAPSULE BY MOUTH THREE TIMES DAILY NEEDED 10 Active Spironolactone 25 MG TAKE ONE TABLET BY MOUTH ONCE DAILY 30 Active Lasix Active Victoza Active Potassium Chloride Marie ER 20 MEQ TAKE ONE TABLET BY MOUTH ONCE DAILY WITH FOOD 30 Active Cymbalta 60 mg Orally Twice a day 1 capsule 12h Aug, Active PredniSONE 20 mg 1 tablet 24h Active Lisinopril-Hydrochlorothiazide 20-25 MG TAKE ONE TABLET BY MOUTH ONCE DAILY 30 Active Magnesium Oxide 400 mg Orally Once a day 1 tablet as needed 24h 30 day(s) Active Methotrexate 2.5 MG Orally 1 time per week 6 Active Omeprazole Active Terbinafine HCl 1 % Externally Twice a day 1 application to affected area 12h 16 Aug, 2017 Active RESULTS Name Result Date Reference Range A1C (IN HOUSE) 2017-09-11 A1C IN HOUSE 7.3 4.3 - 5.6 % Previous A1c 6.1 Lot 0843 Exp date 06/2019 PROCEDURES Procedure Date Ordered Result Body Site GLYCATED HEMOGLOBIN TEST September 11, 2017 THER/PROPH/DIAG INJ, SC/IM September 11, 2017 TORADOL (IM) 60 MG/2ML (UP TO 15 MG) September 11, 2017 INSTRUCTIONS MEDICATIONS ADMINISTERED No Known Medications MEDICAL (GENERAL) HISTORY Type Description Date Medical History type II diabetes-dx'd 12/2010 Medical History dysfunctional uterine bleeding--endometrial bx 12/2010 Medical History asthma Medical History hypertension Medical History obesity Medical History anxiety Medical History autoimmune disease Surgical History x1 Hospitalization History child Hospitalization History Asthma
--- OUTSIDE RECORDS SUMMARY | 2018-02-02 23:45 | XMS REPORT ---
Author Author MACY TAMAYO Organization [facility] Address [address] [place] [address] Care Team Providers Care Honing Job Setter Name Role Phone MACY TAMAYO Unavailable PROBLEMS Type Condition ICD9-CM Code QKC50-PP Code Onset Dates Condition Status SNOMED Code Problem Plantar wart of both feet B07.0 Active [id number] Problem Controlled type 2 diabetes mellitus without complication, without long -term current use of insulin E11.9 Active 084988500 Problem Lumbago with sciatica, left side M54.42 Active 072479950 Problem Lumbago with sciatica, right side M54.41 Active 537976560 Problem Morbid (severe) obesity due to excess calories E66.01 Active 450095201 Problem Body mass index (BMI) of 45.0-49.9 in adult Z68.42 Active 847819317 Problem Tachycardia with heart rate 121-140 beats per minute R00.0 Active 2906733 Problem Dermatomyositis M33.90 Active 247780649 Problem Enlarged thyroid gland E04.9 Active 4759404 Problem Allergic rhinitis due to pollen J30.1 Active 91592619 Problem Mood disorder F39 Active 46705787 Problem Menopause Z78.0 Active 983779629 Problem Anxiety F41.9 Active 90125282 Problem Other chronic pain G89.29 Active 19765553 Problem Diabetes type 2, controlled E11.9 Active 84877872 Problem Arthritis M19.90 Active 0002787 Problem Osteoarthritis of right knee, unspecified osteoarthritis type M17.9 Active 490016845 Problem Plantar warts B07.0 Active 52292839 ALLERGIES No Information ENCOUNTERS Encounter Location Date Diagnosis [facility] [id number] [address] Jan, [facility] [id number] [address] Dec, [facility] [address] [address] Dec, [facility] [id number] [place] [address] 66100- 1111 Nov, Lumbar radiculopathy M54.16 [facility] [id number] [place] [address] 28225- 9416 Nov, [facility] [id number] [place] [address] 40570- 2133 Nov, Mood disorder F39 [facility] [id number] [place] [address] 95018- 2229 Nov, Lumbago with sciatica, right side M54.41 and Other chronic pain G89.29 [facility] [id number] [place] [address] 01582- 3110 Nov, Acute right ankle pain M25.571 [facility] [id number] [place] [address] 77044- 1456 Nov, [facility] [id number] [place] [address] 53159- 6693 Oct, [facility] [id number] [place] [address] 53404- 6060 Oct, Plantar wart of both feet B07.0 [facility] [address] [address] 9937 Oct, [facility] [id number] [place] [address] 10092- 1251 Oct, Acute right ankle pain M25.571 and Plantar wart of both feet B07.0 [facility] [id number] [place] [address] 99871- 2066 September, Other chronic pain G89.29 [facility] [address], [place] [address] 1286 September, Other chronic pain G89.29 [facility] [id number] [place] [address] 73890- 6299 September, Other chronic pain G89.29 [facility] [address] 9[address]23- 2804 Aug, Mood disorder F39 [facility] [facility] [address] 72913- 1551 Aug, Other chronic pain G89.29 ; Controlled type 2 diabetes mellitus without complication, without long-term current use of insulin E11.9 ; Low back pain M54.5 and Tinea corporis B35.4 [facility] [address] 93827- 9449 Aug, Mood disorder F39 and Anxiety F41.9 [facility] [address] 81577- 2985 Aug, Mood disorder F39 and Anxiety F41.9 [facility] [address] 36298- 3239 Jul, [facility] [address] [address]70 Jul, Scabies B86 and BMI 45.0-49.9, adult Z68.42 [place] [address] 80917- 2862 Jul, [facility] [address] 28164- 2716 Jul, Mood disorder F39 and Anxiety F41.9 [place] [address] 40869- 2916 Jul, [facility] [address] 57306 -8856 Jun, Bronchitis J40 ; Dark urine R82.99 and BMI 45.0-49.9, adult Z68.42 [facility] [address] 17086- 5384 14 Jun, 2017 Acute pain of right shoulder M25.511 and Acute pain of right knee M25.561 [id number] [place] [address] 89322- 7222 May, BMI 40.0-44.9, adult Z68.41 ; Controlled type 2 diabetes mellitus without complication, without long-term current use of insulin E11.9 ; Muscle cramping R25.2 ; Hot flashes R23.2 ; Mood disorder F39 ; Anxiety F41.9 and Morbid (severe) obesity due to excess calories E66.01 [id number] [place] [address] 41797- 4258 May, BMI 40.0-44.9, adult Z68.41 ; Controlled type 2 diabetes mellitus without complication, without long-term current use of insulin E11.9 ; Muscle cramping R25.2 and Hot flashes R23.2 [id number] [place] [address] 98865- 5650 May, Tachycardia with heart rate 121-140 beats per minute R00.0 ; Morbid (severe) obesity due to excess calories E66.01 ; Diabetes type 2, controlled E11.9 and Enlarged thyroid gland E04.9 [address] [place] [address] 69364- 9649 May, Encounter for well woman exam with [...] Dysuria R30.0 and Screening breast examination Z12.31 [id number] [place] [address] 37045- 2398 Apr, Mood disorder F39 ; Other chronic pain G89.29 and Anxiety F41.9 [facility] [id number] [place] [address] 21146- 3977 Apr, Lumbago with sciatica, left side M54.42 and Other chronic pain G89.29 [facility] [id number] [place] [address] 90736- 6906 Apr, Lupus erythematosus L93.0 [facility] [id number] [place] [address] 55142- 4545 Mar, Plantar wart of both feet B07.0 [facility] [id number] [place] [address] 07926- 0144 Mar, Lupus erythematosus L93.0 and Sinus drainage J34.89 [facility] [id number] [place] [address] 52451- 5674 Mar, Mood disorder F39 ; Other chronic pain G89.29 and Anxiety F41.9 [facility] [address] 96266- 0861 Mar, Mood disorder F39 ; Arthritis M19.90 and Plantar warts B07.0 [facility] [id number] [place] [address] 35591- 6609 Feb, Lupus erythematosus L93.0 [facility] [id number] [place] [address] 79723- 7761 Feb, Other chronic pain G89.29 [facility] [id number] [place] [address] 14247- 4235 Feb, Mood disorder F39 and Anxiety F41.9 [facility] [id number] [place] [address] 66087- 6417 Jan, [facility] [id number] [place] [address] 58422- 9294 Jan, Mood disorder F39 [facility] [id number] [place] [address] 73277- 3892 Dec, Nail, ingrown L60.0 [facility] [id number] [place] [address] 95683- 6067 Dec, Nail, ingrown L60.0 [facility] [id number] [place] [address] 23391- 5639 Nov, Mood disorder F39 and Anxiety F41.9 [facility] [address] 56668- 1406 Nov, Sinus drainage J34.89 ; Hot flashes R23.2 ; Anxiety F41.9 and Diabetes type 2, controlled E11.9 [facility] [address] 29675- 0131 Nov, Nail, ingrown L60.0 [facility] [id number] [place] [address] 59417- 3759 Oct, Anxiety F41.9 and Mood disorder F39 [facility] [id number] [place] [address] 62406- 8059 Oct, Nail, ingrown L60.0 and Anxiety F41.9 [facility] [id number] [place] [address] 53615- 7759 Oct, Lupus erythematosus L93.0 [facility] [id number] [place] [address] 00370- 4309 September, [facility] [id number] [place] [address] 49737- 9071 September, [facility] [id number] [place] [address] 44755- 8257 September, Lupus erythematosus L93.0 [facility] [id number] [place] [address] 02737- 7197 Aug, [facility] [id number] [place] [address] 59652- 3147 Aug, Mood disorder F39 and Anxiety F41.9 [facility] [id number] [place] [address] 02281- 5987 Aug, Lupus erythematosus L93.0 ; Diabetes type 2, controlled E11.9 and Localized edema R60.0 [place] [id number] [place] [address] 82294- 6113 Aug, [facility] [facility] [id number] [place] [address] 30824- 1762 Jul, Anxiety F41.9 and Mood disorder F39 [facility] [id number] [place] [address] 75088- 9212 Jul, Diabetes type 2, controlled E11.9 [facility] [id number] [place] [address] 44145- 5637 Jun, Anxiety F41.9 [facility] [id number] [place] [address] 44480- 7481 May, [facility] [id number] [place] [address] 75078- 4112 May, [place] [id number] [place] [address] 04125- 1212 May, Nausea R11.0 ; Other chronic pain G89.29 and Pain in right knee M25.561 [facility] [id number] [place] [address] 86231- 7525 May, [place] [id number] [place] [address] 97614- 3648 Apr, Tear of medial meniscus of right knee, current, unspecified tear type, subsequent encounter S83.241D and Tear of lateral meniscus of right knee, current, unspecified tear type, subsequent encounter S83.281D [facility] [id number] [place] [address] 40939- 9744 Apr, Anxiety F41.9 and Mood disorder F39 [facility] [id number] [place] [address] 60158- 6664 09 Dec, 2016 Anxiety F41.9 [facility] [id number] [place] [address] 77023- 6394 05 Apr, 2016 [facility] [id number] [place] [address] 61362- 3042 Mar, [facility] [id number] [place] [address] 41320- 4207 Mar, Lupus erythematosus L93.0 and Diabetes type 2, controlled E11.9 [facility] [id number] [place] [address] 09851- 7171 Mar, Mood disorder F39 [address] [address] 80951- 1922 Mar, Tear of lateral meniscus of right knee, current, unspecified tear type, initial encounter S83.281A and Osteoarthritis of right knee, unspecified osteoarthritis type M17.9 [facility] [id number] [place] [address] 66190- 5182 Mar, [facility] [id number] [place] [address] 19381- 8811 Feb, Mood disorder F39 [facility] [id number] [place] [address] 68047- 5032 Feb, Rash R21 [facility] [id number] [place] [address] 02429- 7821 Feb, [facility] [id number] [place] [address] 54961- 6480 Jan, Other chronic pain G89.29 and Muscle spasm M62.838 [facility] [id number] [place] [address] 54575- 5801 Jan, Mood disorder F39 [facility] [id number] [place] [address] 15395- 5891 Jan, Pain in right knee M25.561 ; Other chronic pain G89.29 and Muscle spasm M62.838 [facility] [address], [place] [address]- 5261 Dec, [facility] [id number] [place] [address] 26288- 9756 Dec, [facility] [id number] [place] [address] 50645- 0398 Nov, [facility] [id number] [place] [address] 11532- 4768 Nov, Mood disorder F39 [facility] [id number] [place] [address] 81263- 8974 Nov, Diabetes type 2, controlled E11.9 ; Bronchitis J40 ; Edema, unspecified type R60.9 ; Weight gain R63.5 and Right knee pain, unspecified chronicity M25.561 [facility] [id number] [place] [address] 58554- 6229 Oct, Mood disorder F39 [facility] [facility] [id number] [place] [address] 99875- 0765 Oct, Lupus erythematosus L93.0 and Bilateral edema of lower extremity R60.0 [facility] [id number] [place] [address] 11490- 6339 Oct, Mood disorder F39 and Anxiety F41.9 [facility] [facility] [id number] [place] [address] 36682- 5434 September, Mood disorder F39 ; Anxiety F41.9 and Anger reaction R45.4 [facility] [id number] [place] [address] 59787- 7321 September, Diabetes type 2, controlled E11.9 ; Edema, unspecified type R60.9 and Fatigue, unspecified type R53.83 [facility] [id number] [place] [address] 05733- 2837 Aug, Mood disorder F39 and Generalized anxiety disorder F41.1 [facility] [id number] [place] [address] 12691- 0091 Aug, Diabetes type 2, controlled E11.9 ; Sinusitis J32.9 and Mood disorder F39 [facility] [id number] [place] [address] 37290- 5814 15 Aug, 2015 Lupus erythematosus L93.0 [facility] [address] [place] [address] 24535- 8247 14 Aug, 2015 [facility] [id number] [place] [address] 54954- 0126 Aug, [facility] [id number] [place] [address] 39759- 7890 Jul, Diabetes type 2, controlled E11.9 [facility] [id number] [place] [address] 99767- 5364 Jul, Mood disorder F39 and Depression F32.9 [facility] [id number] [place] [address] 18002- 5746 Jul, Lupus erythematosus L93.0 and Diabetes type 2, controlled E11.9 [facility] [id number] [place] [address] 66148- 1643 Jul, Mood disorder F39 and Anxiety F41.9 [facility] [address] [place] [address] 19234- 7868 Jul, [facility] [address] [place] [address] 49974- 8422 Jul, [facility] [id number] [place] [address] 99722- 0298 Jun, Mood disorder F39 and Anxiety F41.9 [facility] [id number] [place] [address] 72575- 9210 Jun, Mood disorder F39 [facility] [address] [place] [address] 95769- 5268 18 Jun, 2015 [facility] [id number] [place] [address] 46432- 0131 15 Jun, 2015 [facility] [address], [place] [address]- 0375 08 Jun, 2015 Mood disorder F39 [facility] [address] [place] [address] 38460- 0723 Jun, [facility] [address] [place] [address] 37005- 7462 May, [facility] [address] [place] [address] 65171- 6435 May, [facility] [address] [place] [address] 21556- 3182 May, [facility] [address] [place] [address] 01985- 7268 May, [facility] [id number] [place] [address] 91358- 0922 May, Anxiety F41.9 ; Dermatomyositis M33.90 and Diabetes type 2, controlled E11.9 [facility] [address], [place] [address] May, Sinusitis J32.9 and Cough R05 [facility] [address], [place] [address]- 0934 May, Mood disorder F39 [facility] [address] [place] [address] 10050- 8797 May, Adjustment disorder with mixed anxiety and depressed mood F43.23 [facility] [address], [place] [address]- 3512 Apr, [facility] [id number] [place] [address] 15154- 8968 Apr, [facility] [address], [place] [address]- 5904 Apr, Generalized anxiety disorder F41.1 and Mood disorder F39 [facility] [address], [place] [address]- 7716 Mar, [facility] [id number] [place] [address] 22799- 7266 Mar, [facility] [id number] [place] [address] 52673- 7889 Mar, [facility] [id number] [place] [address] 56152- 7877 Mar, Mood disorder F39 [facility] [id number] [place] [address] 00019- 2196 Feb, [facility] [id number] [place] [address] 28771- 6865 Feb, Diabetes E11.9 and Bronchitis J40 [facility] [id number] [place] [address] 51922- 2919 Feb, [facility] [id number] [place] [address] 73161- 1881 Feb, [facility] [id number] [place] [address] 03573- 8761 Feb, Major depression, recurrent, full remission F33.42 and KELLY ( generalized anxiety disorder) F41.1 [facility] [id number] [place] [address] 71265- 2845 Feb, [facility] [id number] [place] [address] 10899- 0772 Feb, Single major depressive episode, in partial or unspecified remission F32.5 [facility] [address] [place] [address] 00707- 0451 Jan, Fatigue 780.79 [facility] [id number] [place] [address] 09353- 5974 Jan, [facility] [id number] [place] [address] 77010- 4200 Jan, Diabetes with other specified manifestations, type II or unspecified type, not stated as uncontrolled 250.80 [facility] [id number] [place] [address] 09441- 4367 Jan, [facility] [id number] [place] [address] 40330- 9363 Dec, Hot flashes 627.2 ; Memory loss 780.93 and Joint pain 719.40 [id number] [place] [address] 00368- 2368 Dec, Major depression, recurrent 296.30 ; Generalized anxiety disorder 300.02 ; Adjustment disorder with depressed mood 309.0 and No condition on Strat[place] II V71.[address] 13614- 9647 Dec, [address] 95481- 2032 Nov, Cognitive and neurobehavioral dysfunction 294.9 ; Major depressive disorder, recurrent episode, moderate degree 296.32 and Anxiety state , unspecified 300.00 [place] [id number] [place] [address] 85427- 8125 Nov, [id number] [place] [address] 51934- 6967 Nov, Bronchitis 490 and Diabetes with other specified manifestations, type II or unspecified type, not stated as uncontrolled 250.80 [id number] [place] [address] 49750- 8315 Nov, Major depressive disorder, recurrent episode, moderate 296.32 and Anxiety disorder, unspecified 300.00 [id number] [place] [address] 91062- 5227 Nov, Anxiety, generalized 300.02 ; Intermittent explosive disorder 312.34 ; No condition on Strat[place] II V71.09 and No condition on axis III V71.09 [id number] [place] [address] 65267- 6814 Oct, Diabetes with other specified manifestations, type II or unspecified type, not stated as uncontrolled 250.80 ; Urinary tract infection, site not specified 599.0 and Bronchitis [id number] [place] [address] 24978- 9874 Oct, Intermittent explosive disorder 312.34 ; Bipolar 1 disorder , depressed, moderate 296.52 ; Major depression, chronic 296.20 ; No condition on Strat[place] II V71.09 and No condition on axis III V71.09 [id number] [place] [address] 01796- 2902 Oct, Major depressive disorder, recurrent episode, moderate 296.32 ; Anxiety state 300.00 ; Cognitive decline 294.9 and No condition on Strat[place] II V71.09 [id number] [place] [address] 31588- 3526 Oct, [id number] [place] [address] 85987- 3527 Oct, Major depressive disorder, recurrent episode, moderate 296.32 ; Anxiety disorder, unspecified 300.00 and Persistent disorder of initiating or maintaining sleep 307.42 [id number] [place] [address] 90556- 9505 September, Diabetes with other specified manifestations, type II or unspecified type, not stated as uncontrolled 250.80 ; Memory loss 780.93 and Cognitive complaints 799.59 [address] [place] [address] 53496- 5152 September, No condition on Strat[place] II V71.09 ; Major depression, recurrent 296.30 and Persistent mood [affective] disorder, unspecified 296.90 [address] [place] [address] 74963- 6994 Aug, [id number] [place] [address] 21636- 3367 Aug, [address] [place] [address] 60140- 9440 Aug, [id number] [place] [address]- 8681 Jul, 2014 [facility] [place] [facility] [address] [id number] [place] [address]- 0942 Jul, 2014 [facility] [place] [facility] [address] [id number] [place] [address]- 8526 Jul, 2014 [facility] [place] [facility] [address] [id number] [place] [address]- 2073 Jul, 2014 [facility] [place] [facility] [address] [id number] [place] [address]- 2021 Jul, 2014 [facility] [place] [facility] [address] [facility] [id number] [place] [address]- 4691 Jun, 2014 [facility] [place] [facility] [address] [facility] [id number] [place] [address] Jun, 2014 [facility] [place] [facility] [address] [facility] [id number] [place] [address] Jun, 2014 [facility] [place] [facility] [address] [facility] [id number] [place] [address] Jun, 2014 [facility] [place] [facility] [address] [facility] [id number] [place] [address] Jun, 2014 [facility] [place] [facility] [address] [facility] [id number] [place] [address] Jun, 2014 [facility] [place] [facility] [address] [facility] [id number] [address] Jun, 2014 [facility] [place] [facility] [address] [facility] [id number] [place] [address] Jun, 2014 [facility] [place] [facility] [address] [facility] [id number] [place] [address] Jun, 2014 [facility] [place] [facility] [address] [facility] [id number] [place] [address] Jun, 2014 [facility] [place] [facility] [address] [facility] [id number] [address] Jun, [facility] [address] [id number] [place] [address] Jun, [facility] [facility] [address] [id number] [place] [address] Jun, [facility] [place] [facility] [address] [facility] [id number] [place] [address] 4942 May, [facility] [place] [facility] [address] [id number] [place] [address] 7937 May, [facility] [place] [facility] [address] [id number] [place] [address] Apr, [facility] [place] [facility] [address] [id number] [place] [address] Apr, [facility] [address] [facility] [id number] [place] [address]783 Apr, [facility] [address] [id number] [place] [address] Apr, [facility] [place] [facility] [address] [id number] [place] [address]793 Apr, [facility] [place] [facility] [address] [facility] [id number] [place] [address] 68[address] Apr, [facility] [address] [id number] [place] [address]476 Apr, [facility] [place] [facility] [address] [id number] [place] [address] 0209 Apr, [facility] [place] [facility] [address] [id number] [place] [address]- 8868 Apr, [facility] [place] [facility] [address] [id number] [place] [address] 2004 Apr, [facility] [place] [facility] [address] [facility] [id number] [place] [address] 8839 Apr, [facility] [place] [facility] [address] [id number] [place] [address] Apr, [facility] [place] [facility] [address] [id number] [place] [address]- 1819 Apr, [facility] [place] [facility] [address] [id number] [place] [address] Apr, [facility] [place] [facility] [address] [id number] [place] [address]- 0095 Apr, [facility] [place] [facility] [address] [id number] [place] [address]- 1370 Apr, [facility] [address] [id number] [place] [address]- 9284 Apr, [facility] [place] [address] [id number] [place] [address]- 7280 Apr, [facility] [place] [address] [id number] [place] [address]- 2157 Apr, [facility] [address] [id number] [place] [address]- 3742 Apr, [facility] [address] [id number] [place] [address]- 1539 Mar, [facility] [place] [facility] [address] [id number] [place] [address]- 0530 Mar, [facility] [place] [address] [id number] [place] [address]- 7682 Mar, [facility] [place] [address] [id number] [place] [address]- 7579 Mar, [facility] [place] [facility] [address] [id number] [place] [address]- 0564 Mar, [facility] [address] [id number] [place] [address]- 9940 Mar, [facility] [address] [id number] [place] [address] Mar, [facility] [address] [id number] [place] [address] 8894 Mar, [facility] [address] [id number] [place] [address]- 4323 Mar, [facility] [address] [id number] [place] [address]- 2558 Mar, [facility] [address] [id number] [place] [address]- 1137 Mar, [facility] [address] [id number] [place] [address]- 8758 Mar, [facility] [address] [id number] [place] [address]- 7732 Mar, [facility] [address] [id number] [place] [address]- 9559 Feb, [facility] [address] [id number] [place] [address]- 7876 Feb, [facility] [address] [id number] [place] [address]- 8234 30 Feb, 2014 [facility] [address] [id number] [place] [address] 3991 Feb, [facility] [address] [id number] [address] Feb, [facility] [address] [id number] [address] 9[address] Feb, [facility] [address] [id number] [place] [address]- 2156 Feb, [facility] [address] [id number], [place] [address]- 9132 Feb, [facility] [address] [id number], [place] [address]- 9063 Feb, [facility] [address] [id number] [place] [address]- 9351 13 Feb, 2014 [facility] [address] [id number] [place] [address]- 7229 13 Feb, 2014 [facility] [address] [id number] [place] [address]- 2929 10 Feb, 2014 [facility] [address] [id number] [place] [address]- 7728 10 Feb, 2014 [facility] [address] [id number] [place] [address]- 6712 07 Feb, 2014 [facility] [address] [id number] [place] [address]- 7826 07 Feb, 2014 [facility] [address] [id number] [place] [address]- 1316 10 Jan, 2013 [facility] [address] [id number] [place] [address]- 1840 08 Jan, 2013 [facility] [address] [id number] [place] [address]- 1111 08 Jan, 2013 [facility] [address] [id number] [place] [address]- 7208 08 Jan, 2013 [facility] [address] [id number] [place] [address]- 8484 08 Jan, 2013 [facility] [address] [id number] [place] [address]- 8121 Dec, [facility] [address] [id number] [place] [address]- 2120 Dec, [facility] [address] [id number] [place] [address]- 6558 Dec, [facility] [address] [id number] [place] [address]- 1547 Dec, [facility] [address] [id number] [place] [address]- 6278 Nov, [facility] [address] [id number] [place] [address]- 8788 Nov, [facility] [address] [id number] [place] [address]- 0818 Nov, [facility] [address] [id number] [place] [address]- 0022 Nov, [facility] [address] [id number] [place] [address]- 3575 Nov, [facility] [address] [id number] [place] [address]- 7410 Nov, [facility] [address] [id number] [place] [address]- 1414 Nov, [facility] [address] [id number] [place] [address]- 7538 Nov, [facility] [address] [id number] [place] [address]- 6269 Nov, [facility] [address] [id number] [place] [address] 1938 Nov, [facility] [address] [id number] [place] [address]- 7843 Oct, [facility] [address] [id number] [place] [address]- 5581 Oct, [facility] [address] [id number] [place] [address]- 7284 September, [facility] [address] [id number] [place] [address]- 1719 September, [facility] [address] [id number] [place] [address]- 3124 September, [facility] [address] [id number] [place] [address]- 7310 September, [facility] [address] [id number] [place] [address]- 9289 16 Aug, 2013 [facility] [address] [id number] [place] [address]- 8779 14 Aug, 2013 [facility] [address] [id number] [place] [address]- 1426 14 Aug, 2013 [facility] [address] [id number] [place] [address]- 5799 24 Jul, 2013 [facility] [address] [id number] [place] [address]- 2538 24 Jul, 2013 [facility] [address] [id number] [place] [address]- 6351 Jul, [facility] [address] [id number] [place] [address]- 9160 Jul, [facility] [address] [id number] [place] [address]- 4188 May, [facility] [address] [id number] [place] [address]- 6561 17 May, 2013 [facility] [address] [id number] [place] [address]- 4581 17 May, 2013 [facility] [address] [id number] [place] [address]- 9204 15 Mar, 2013 [facility] [address] [id number], [place] [address]- 7324 15 Mar, 2013 [facility] [address] [id number], [place] [address]- 5952 13 Mar, 2013 [facility] [address] [id number] [place] [address]- 4921 13 Mar, 2013 [facility] [address] [id number] [place] [address]- 2097 16 Feb, 2013 [facility] [address] [id number] [place] [address]- 8837 16 Feb, 2013 [facility] [address] [id number] [place] [address]- 2541 04 Feb, 2013 [facility] [address] [id number] [place] [address]- 5022 16 Jan, 2013 [facility] [address] [id number] [place] [address]- 6166 Jan, [facility] [address] [id number] [place] [address]- 2179 Jan, [facility] [address] [id number] [place] [address]- 1580 Dec, [facility] [address] [id number] [place] [address]- 0350 Dec, [facility] [address] [id number] [place] [address]- 4740 Dec, [facility] [address] [id number] [place] [address]- 7709 Dec, [facility] [address] [id number] [place] [address]- 6751 Nov, [facility] [address] [id number] [place] [address]- 5053 Oct, [facility] [address] [id number] [place] [address]- 4750 Oct, [facility] [address] [id number] [place] [address]- 1157 September, [facility] [address] [id number] [place] [address]- 5168 September, [facility] [address] [id number] [place] [address]- 9374 September, [facility] [address] [id number] [place] [address]- 6222 Aug, [facility] [address] [id number] [place] [address]- 0546 Aug, [facility] [address] [id number] [place] [address]- 3619 17 Aug, 2012 [facility] [address] [id number] [place] [address]- 6541 Aug, [facility] [address] [id number] [place] [address]- 6109 26 Jul, 2012 [facility] [address] [id number] [place] [address]- 7514 25 Jul, 2012 [facility] [address] [id number] [place] [address]- 1779 Jul, [facility] [address] [id number] [place] [address]- 1515 15 Jul, 2012 [facility] [address] [id number] [place] [address]- 7771 14 Jul, 2012 [facility] [address] [id number] [place] [address]- 6872 Jul, [facility] [address] [id number] [place] [address]- 8095 Jul, [facility] [address] [id number] [place] [address]- 2798 Jun, [facility] [address] [id number] [place] [address]- 2185 Jun, [facility] [address] [id number] [place] [address]- 3458 Jun, [facility] [address] [id number] [place] [address]- 7824 Jun, [facility] [address] [id number] [place] [address]- 6184 May, [facility] [address] [id number] [place] [address]- 7084 May, [facility] [address] [id number] [place] [address]- 4735 May, [facility] [address] [id number] [place] [address]- 9574 May, [facility] [address] [id number] [place] [address]- 8720 May, [facility] [address] [id number] [place] Apr, [facility] [address] [id number] [place] [address]- 0435 Apr, [facility] [address] [id number] [place] [address]- 4556 Mar, [facility] [address] [id number] [place] [address]- 2909 Mar, [facility] [address] [id number] [place] [address]- 7635 Mar, [facility] [address] [id number] [place] [address]- 0707 Mar, [facility] [address] [id number] [place] [address]- 6849 Mar, [facility] [address] [facility] [id number] [place] [address]- 3956 Mar, [facility] [address] [id number] [place] [address]- 1272 Mar, [facility] [address] [id number] [place] [address]- 9451 Mar, [facility] [address] [id number] [place] [address]- 2031 Mar, [facility] [address] [facility] [id number] [place] [address]- 4954 Mar, [facility] [address] [id number] [place] [address]- 9278 Feb, [facility] [address] [id number] [place] [address]- 2857 Feb, [facility] [address] [id number] [place] [address]- 6488 Feb, [facility] [place] [facility] [address] [id number] [place] [address]- 4307 Feb, [facility] [address] [id number] [place] [address]- 8113 Feb, [facility] [place] [address] [id number] [place] [address]- 2746 Feb, [facility] [place] [facility] [address] [id number] [place] [address]- 3086 Feb, [facility] [place] [facility] [address] [id number] [place] [address]- 4471 Jan, [facility] [place] [facility] [address] [id number] [place] [address]- 8646 Jan, [facility] [place] [facility] [address] [id number] [place] [address]- 2480 Dec, [facility] [place] [facility] [address] [id number] [place] [address]- 6368 Dec, [facility] [place] [facility] [address] [id number] [place] [address]- 7218 Dec, [facility] [place] [facility] [address] [id number] [place] [address]- 9693 Dec, [facility] [place] [facility] [address] [id number] [place] [address]- 7963 Dec, [facility] [place] [facility] [address] [id number] [place] [address]- 9243 Dec, [facility] [place] [facility] [address] [id number] [place] [address]- 6841 Nov, [facility] [place] [facility] [address] [id number] [place] [address]- 2546 Nov, [facility] [place] [facility] [address] [id number] [place] [address]- 5567 Nov, [facility] [place] [facility] [address] [id number] [place] [address]- 1678 Nov, [facility] [place] [facility] [address] [id number] [place] [address]- 5417 September, [facility] [place] [facility] [address] [id number] [place] [address]- 2460 September, [facility] [place] [facility] [address] [id number] [place] [address]- 6988 September, [facility] [place] [facility] [address] [id number] [place] [address]- 2288 Jul, [facility] [place] [facility] [address] [facility] [id number] [place] [address]- 5190 Jun, [facility] [place] [facility] [address] [id number] [place] [address]- 2000 Jun, [facility] [place] [facility] [address] [id number] [place] [address]- 0843 Jun, [facility] [place] [facility] [address] [facility] [id number] [place] [address]- 0581 Apr, [facility] [place] [facility] [address] [id number] [place] [address]- 4062 Mar, [facility] [place] [facility] [address] [id number] [place] [address]- 5359 Mar, [facility] [place] [facility] [address] [id number] [place] [address]- 1709 Feb, [facility] [place] [facility] [address] [id number] [place] [address]- 7079 Feb, [facility] [place] [facility] [address] [facility] [id number] [place] [address]- 0370 Feb, [facility] [place] [facility] [address] [facility] [id number] [place] [address]- 2185 Jul, [facility] [address] [facility] [id number] [place] [address]- 7822 Feb, IMMUNIZATIONS No Known Immunizations SOCIAL HISTORY Never Assessed REASON FOR VISIT Refill request PLAN OF CARE VITAL SIGNS MEDICATIONS Unknown [...]
--- OUTSIDE RECORDS SUMMARY | 2018-02-02 23:46 | XMS REPORT ---
Author Author ROSANA Scott Organization [facility] Address [address] [place] [address] Care Team Providers Care Solution Maker Name Role Phone ROSANA Scott Unavailable PROBLEMS Type Condition ICD9-CM Code QBG84-YB Code Onset Dates Condition Status SNOMED Code Problem Plantar wart of both feet B07.0 Active [id number] Problem Controlled type 2 diabetes mellitus without complication, without long -term current use of insulin E11.9 Active 977168739 Problem Lumbago with sciatica, left side M54.42 Active 639361710 Problem Lumbago with sciatica, right side M54.41 Active 147151426 Problem Morbid (severe) obesity due to excess calories E66.01 Active 334284658 Problem Body mass index (BMI) of 45.0-49.9 in adult Z68.42 Active 933638041 Problem Tachycardia with heart rate 121-140 beats per minute R00.0 Active 0350327 Problem Dermatomyositis M33.90 Active 575359813 Problem Enlarged thyroid gland E04.9 Active 9126466 Problem Allergic rhinitis due to pollen J30.1 Active 21703458 Problem Mood disorder F39 Active 12992445 Problem Menopause Z78.0 Active 889419778 Problem Anxiety F41.9 Active 44408776 Problem Other chronic pain G89.29 Active 80075379 Problem Diabetes type 2, controlled E11.9 Active 40575676 Problem Arthritis M19.90 Active 5671730 Problem Osteoarthritis of right knee, unspecified osteoarthritis type M17.9 Active 526455078 Problem Plantar warts B07.0 Active 24001068 ALLERGIES No Information ENCOUNTERS Encounter Location Date Diagnosis [facility] [address] [facility] [id number] [address] Jan, [facility] [address] [facility] [id number], [place] [address] Dec, [facility] [address], [place] [address] Dec, [facility] [id number] [place] [address] 93124- 5398 Nov, Lumbar radiculopathy M54.16 [facility] [id number] [place] [address] 31186- 1561 Nov, [facility] [id number] [place] [address] 07574- 5425 Nov, Mood disorder F39 [facility] [id number] [place] [address] 49126- 5128 Nov, Lumbago with sciatica, right side M54.41 and Other chronic pain G89.29 [facility] [id number] [place] [address] 86162- 6197 Nov, Acute right ankle pain M25.571 [facility] [id number] [place] [address] 03409- 4316 Nov, [facility] [id number] [place] [address] 45086- 4378 Oct, [facility] [id number] [place] [address] 19619- 0761 Oct, Plantar wart of both feet B07.0 [facility] [id number] [place] [address] 09533- 8654 Oct, [facility] [id number] [place] [address] 57765- 4094 Oct, Acute right ankle pain M25.571 and Plantar wart of both feet B07.0 [facility] [id number] [place] [address] 39359- 3549 September, Other chronic pain G89.29 [facility] [id number] [place] [address] 76409- 0469 September, Other chronic pain G89.29 [place] [id number] [place] [address] 60417- 3147 September, Other chronic pain G89.29 [place] [id number] [place] [address] 57712- 5630 Aug, Mood disorder F39 [place] [address] 04162- 0502 Aug, Other chronic pain G89.29 ; Controlled type 2 diabetes mellitus without complication, without long-term current use of insulin E11.9 ; Low back pain M54.5 and Tinea corporis B35.4 [place] [address] 63052- 4571 Aug, Mood disorder F39 and Anxiety F41.9 [place] [id number] [place] [address] 64001- 0709 Aug, Mood disorder F39 and Anxiety F41.9 [place] [id number] [place] [address] 74945- 5315 Jul, [facility] [id number] [place] [address] 66928 -4108 Jul, Scabies B86 and BMI 45.0-49.9, adult Z68.42 [place] [id number] [place] [address] 75519- 4732 Jul, [place] [id number] [place] [address] 78879- 9580 Jul, Mood disorder F39 and Anxiety F41.9 [place] [id number] [place] [address] 24123- 4285 Jul, [facility] [id number] [place] [address] 78901 -7682 Jun, Bronchitis J40 ; Dark urine R82.99 and BMI 45.0-49.9, adult Z68.42 [facility] [address] [place] [address] 38106- 8488 14 Jun, 2017 Acute pain of right shoulder M25.511 and Acute pain of right knee M25.561 [place] [id number] [place] [address] 27801- 7507 May, BMI 40.0-44.9, adult Z68.41 ; Controlled type 2 diabetes mellitus without complication, without long-term current use of insulin E11.9 ; Muscle cramping R25.2 ; Hot flashes R23.2 ; Mood disorder F39 ; Anxiety F41.9 and Morbid (severe) obesity due to excess calories E66.[address] 73271- 1616 May, BMI 40.0-44.9, adult Z68.41 ; Controlled type 2 diabetes mellitus without complication, without long-term current use of insulin E11.9 ; Muscle cramping R25.2 and Hot flashes R23.2 [place] [id number] [place] [address] 56101- 1559 May, Tachycardia with heart rate 121-140 beats per minute R00.0 ; Morbid (severe) obesity due to excess calories E66.01 ; Diabetes type 2, controlled E11.9 and Enlarged thyroid gland E04.9 [place] [id number] [place] [address] 68700- 6777 May, Encounter for well woman exam with [...] Dysuria R30.0 and Screening breast examination Z12.31 [place] [id number] [place] [address] 41709- 0560 Apr, Mood disorder F39 ; Other chronic pain G89.29 and Anxiety F41.9 [facility] [id number] [place] [address] 55510- 1596 Apr, Lumbago with sciatica, left side M54.42 and Other chronic pain G89.29 [facility] [id number] [place] [address] 67916- 8860 Apr, Lupus erythematosus L93.0 [facility] [address] 75622- 5186 Mar, Plantar wart of both feet B07.0 [facility] [address] 74563- 1386 Mar, Lupus erythematosus L93.0 and Sinus drainage J34.89 [facility] [address] 51801- 3391 Mar, Mood disorder F39 ; Other chronic pain G89.29 and Anxiety F41.9 [facility] [id number] [place] [address] 47994- 7784 Mar, Mood disorder F39 ; Arthritis M19.90 and Plantar warts B07.0 [facility] [id number] [place] [address] 21984- 5990 Feb, Lupus erythematosus L93.0 [facility] [id number] [place] [address] 99939- 7126 Feb, Other chronic pain G89.29 [facility] [id number] [place] [address] 87450- 1106 Feb, Mood disorder F39 and Anxiety F41.9 [facility] [address] 84667- 1476 Jan, [facility] [id number] [place] [address] 64162- 5073 Jan, Mood disorder F39 [facility] [address] 02345- 2991 Dec, Nail, ingrown L60.0 [facility] [id number] [place] [address] 58366- 9969 Dec, Nail, ingrown L60.0 [facility] [id number] [place] [address] 44016- 6657 Nov, Mood disorder F39 and Anxiety F41.9 [facility] [id number] [place] [address] 40640- 6958 Nov, Sinus drainage J34.89 ; Hot flashes R23.2 ; Anxiety F41.9 and Diabetes type 2, controlled E11.9 [facility] [id number] [place] [address] 88866- 3128 Nov, Nail, ingrown L60.0 [facility] [id number] [place] [address] 04235- 3856 Oct, Anxiety F41.9 and Mood disorder F39 [facility] [id number] [place] [address] 45200- 2661 Oct, Nail, ingrown L60.0 and Anxiety F41.9 [facility] [id number] [place] [address] 18106- 4680 Oct, Lupus erythematosus L93.0 [facility] [id number] [place] [address] 04221- 6380 September, [facility] [id number] [place] [address] 31887- 3361 September, [facility] [id number] [place] [address] 96818- 3609 September, Lupus erythematosus L93.0 [facility] [id number] [place] [address] 82172- 1538 Aug, [facility] [id number] [place] [address] 22434- 7159 Aug, Mood disorder F39 and Anxiety F41.9 [facility] [id number] [place] [address] 13934- 7447 Aug, Lupus erythematosus L93.0 ; Diabetes type 2, controlled E11.9 and Localized edema R60.0 [facility] [id number] [place] [address] 91110- 9854 Aug, [facility] [id number] [place] [address] 82290- 1577 Jul, Anxiety F41.9 and Mood disorder F39 [place] [id number] [place] [address] 70043- 4753 Jul, Diabetes type 2, controlled E11.9 [place] [id number] [place] [address] 73662- 7990 Jun, Anxiety F41.9 [place] [id number] [place] [address] 24680- 8275 May, [facility] [id number] [place] [address] 93182- 2351 May, [place] [id number] [place] [address] 86317- 2498 May, Nausea R11.0 ; Other chronic pain G89.29 and Pain in right knee M25.561 [place] [id number] [place] [address] 64224- 2663 May, [facility] [id number] [place] [address] 97507- 3908 Apr, Tear of medial meniscus of right knee, current, unspecified tear type, subsequent encounter S83.241D and Tear of lateral meniscus of right knee, current, unspecified tear type, subsequent encounter S83.281D [place] [id number] [place] [address] 20686- 9848 Apr, Anxiety F41.9 and Mood disorder F39 [facility] [id number] [place] [address] 35015- 6709 Apr, Anxiety F41.9 [facility] [id number] [place] [address] 12353- 6932 Apr, [facility] [id number] [place] [address] 18329- 2393 Mar, [facility] [id number] [place] [address] 82338- 9362 Mar, Lupus erythematosus L93.0 and Diabetes type 2, controlled E11.9 [facility] [id number] [place] [address] 64839- 4710 Mar, Mood disorder F39 [place] [id number] [place] [address] 61380- 3581 Mar, Tear of lateral meniscus of right knee, current, unspecified tear type, initial encounter S83.281A and Osteoarthritis of right knee, unspecified osteoarthritis type M17.9 [facility] [id number] [place] [address] 45126- 6234 Mar, [facility] [id number] [place] [address] 28185- 1611 Feb, Mood disorder F39 [facility] [id number] [place] [address] 62613- 8258 Feb, Rash R21 [facility] [id number] [place] [address] 20091- 0381 Feb, [facility] [id number] [place] [address] 72638- 5925 Jan, Other chronic pain G89.29 and Muscle spasm M62.838 [facility] [id number] [place] [address] 41629- 7205 Jan, Mood disorder F39 [facility] [id number] [place] [address] 27117- 4303 Jan, Pain in right knee M25.561 ; Other chronic pain G89.29 and Muscle spasm M62.838 [place] [address], [place] [address]- 8472 Dec, [facility] [id number] [place] [address] 99247- 3168 Dec, [facility] [id number] [place] [address] 22188- 3041 Nov, [place] [id number] [place] [address] 77276- 4210 Nov, Mood disorder F39 [place] [id number] [place] [address] 96859- 2066 Nov, Diabetes type 2, controlled E11.9 ; Bronchitis J40 ; Edema, unspecified type R60.9 ; Weight gain R63.5 and Right knee pain, unspecified chronicity M25.561 [place] [id number] [place] [address] 25026- 3983 Oct, Mood disorder F39 [place] [id number] [place] [address] 70728- 3312 Oct, Lupus erythematosus L93.0 and Bilateral edema of lower extremity R60.0 [place] [id number] [place] [address] 80799- 2071 Oct, Mood disorder F39 and Anxiety F41.9 [place] [id number] [place] [address] 10978- 6931 September, Mood disorder F39 ; Anxiety F41.9 and Anger reaction R45.4 [place] [id number] [place] [address] 60918- 4393 September, Diabetes type 2, controlled E11.9 ; Edema, unspecified type R60.9 and Fatigue, unspecified type R53.83 [place] [id number] [place] [address] 94172- 0664 Aug, Mood disorder F39 and Generalized anxiety disorder F41.1 [place] [id number] [address]- 9768 Aug, Diabetes type 2, controlled E11.9 ; Sinusitis J32.9 and Mood disorder F39 [facility] [id number] [place] [address] 08126- 9600 15 Aug, 2015 Lupus erythematosus L93.0 [facility] [id number] [place] [address] 62961- 1349 14 Aug, 2015 [facility] [id number] [place] [address] 68564- 4782 Aug, [facility] [id number] [place] [address] 75184- 0436 Jul, Diabetes type 2, controlled E11.9 [facility] [id number] [place] [address] 86068- 4309 Jul, Mood disorder F39 and Depression F32.9 [facility] [id number] [place] [address] 70806- 4888 Jul, Lupus erythematosus L93.0 and Diabetes type 2, controlled E11.9 [facility] [id number] [place] [address] 10305- 7898 Jul, Mood disorder F39 and Anxiety F41.9 [facility] [id number] [place] [address] 72092- 8981 Jul, [facility] [id number] [place] [address] 19379- 8894 Jul, [facility] [id number] [place] [address] 75228- 8776 Jun, Mood disorder F39 and Anxiety F41.9 [facility] [id number] [place] [address] 03312- 0393 Jun, Mood disorder F39 [facility] [id number] [place] [address] 74969- 8231 18 Jun, 2015 [facility] [address] [place] [address]- 2646 15 Jun, 2015 [facility] [id number] [place] [address] 53798- 8389 Jun, Mood disorder F39 [facility] [address], [place] [address]- 4812 Jun, [facility] [id number] [place] [address] 94627- 3197 May, [facility] [id number] [place] [address] 95087- 6938 May, [facility] [id number] [place] [address] 51348- 2019 May, [facility] [id number] [place] [address] 83648- 3228 May, [facility] [id number] [place] [address] 94914- 7994 May, Anxiety F41.9 ; Dermatomyositis M33.90 and Diabetes type 2, controlled E11.9 [facility] [id number] [place] [address] 46651 -3283 May, Sinusitis J32.9 and Cough R05 [facility] [address], [place] [address]- 1226 May, Mood disorder F39 [facility] [id number] [place] [address] 63704- 4654 May, Adjustment disorder with mixed anxiety and depressed mood F43.23 [facility] [address], [place] [address]- 6517 Apr, [facility] [id number] [place] [address] 22507- 8742 Apr, [facility] [address], [place] [address]- 9789 Apr, Generalized anxiety disorder F41.1 and Mood disorder F39 [facility] [address], [place] [address]- 8657 Mar, [facility] [id number] [place] [address] 72977- 2782 Mar, [facility] [id number] [place] [address] 72770- 4326 Mar, [facility] [id number] [place] [address] 61528- 6789 Mar, Mood disorder F39 [facility] [id number] [place] [address] 08713- 1519 Feb, [facility] [id number] [place] [address] 56943- 4911 Feb, Diabetes E11.9 and Bronchitis J40 [facility] [id number] [place] [address] 39003- 9267 Feb, [facility] [id number] [place] [address] 52893- 2693 Feb, [facility] [id number] [place] [address] 74891- 6474 Feb, Major depression, recurrent, full remission F33.42 and KELLY ( generalized anxiety disorder) F41.1 [facility] [id number] [place] [address] 74514- 9076 Feb, [facility] [id number] [place] [address] 38250- 9702 Feb, Single major depressive episode, in partial or unspecified remission F32.5 [facility] [id number] [place] [address] 99906- 2581 Jan, Fatigue 780.79 [facility] [address], [place] [address]- 2546 Jan, [facility] [id number] [place] [address] 95476- 1271 Jan, Diabetes with other specified manifestations, type II or unspecified type, not stated as uncontrolled 250.80 [place] [id number] [place] [address] 93800- 9088 Jan, [place] [id number] [place] [address] 11410- 2252 Dec, Hot flashes 627.2 ; Memory loss 780.93 and Joint pain 719.[address] 83801- 1226 Dec, Major depression, recurrent 296.30 ; Generalized anxiety disorder 300.02 ; Adjustment disorder with depressed mood 309.0 and No condition on Calhoun II V71.09 [place] [id number] [place] [address] 60877- 7923 Dec, [address] 56602- 6876 Nov, Cognitive and neurobehavioral dysfunction 294.9 ; Major depressive disorder, recurrent episode, moderate degree 296.32 and Anxiety state , unspecified 300.00 [place] [id number] [place] [address] 60231- 4323 Nov, [place] [id number] [place] [address] 76127- 6540 Nov, Bronchitis 490 and Diabetes with other specified manifestations, type II or unspecified type, not stated as uncontrolled 250.80 [place] [id number] [place] [address] 29318- 6558 Nov, Major depressive disorder, recurrent episode, moderate 296.32 and Anxiety disorder, unspecified 300.00 [place] [id number] [place] [address] 71590- 0648 Nov, Anxiety, generalized 300.02 ; Intermittent explosive disorder 312.34 ; No condition on Calhoun II V71.09 and No condition on axis III V71.[address] 86621- 8399 Oct, Diabetes with other specified manifestations, type II or unspecified type, not stated as uncontrolled 250.80 ; Urinary tract infection, site not specified 599.0 and Bronchitis [address] [place] [id number] [place] [address] 76094- 7894 Oct, Intermittent explosive disorder 312.34 ; Bipolar 1 disorder , depressed, moderate 296.52 ; Major depression, chronic 296.20 ; No condition on Calhoun II V71.09 and No condition on axis III V71.09 [place] [id number] [place] [address] 61537- 3166 Oct, Major depressive disorder, recurrent episode, moderate 296.32 ; Anxiety state 300.00 ; Cognitive decline 294.9 and No condition on Calhoun II V71.09 [place] [id number] [place] [address] 89888- 8255 Oct, [address] 02559- 0362 Oct, Major depressive disorder, recurrent episode, moderate 296.32 ; Anxiety disorder, unspecified 300.00 and Persistent disorder of initiating or maintaining sleep 307.42 [place] [id number] [place] [address] 33116- 2169 September, Diabetes with other specified manifestations, type II or unspecified type, not stated as uncontrolled 250.80 ; Memory loss 780.93 and Cognitive complaints 799.59 [place] [id number] [place] [address] 20192- 9103 September, No condition on [place] II V71.09 ; Major depression, recurrent 296.30 and Persistent mood [affective] disorder, unspecified 296.[address] [place] [id number] [place] [address]783- 2040 Aug, [place] [id number] [place] [address] 8[address]89- 0380 Aug, [place] [id number] [place] [address] 24384- 0562 Aug, [facility] [place] [facility] [address] [id number] [place] [address] Jul, [facility] [place] [facility] [address] [id number] [place] [address] Jul, [facility] [place] [facility] [address] [id number] [place] Jul, [facility] [place] [facility] [address] [id number] [place] [address] Jul, [facility] [place] [facility] [address] [id number] [place] [address] Jul, [facility] [place] [facility] [address] [id number] [place] [address] Jun, 2014 [facility] [place] [facility] [address] [facility] [id number] [place] [address] Jun, 2014 [facility] [place] [facility] [address] [id number] [place] [address] Jun, 2014 [facility] [place] [facility] [address] [facility] [id number] [place] [address] Jun, 2014 [facility] [place] [facility] [address] [facility] [id number] [place] [address] Jun, 2014 [facility] [place] [facility] [address] [facility] [id number] [place] [address] Jun, 2014 [facility] [place] [facility] [address] [id number], [place] [address] Jun, 2014 [facility] [place] [facility] [address] [id number] [place] [address]47 Jun, 2014 [facility] [place] [facility] [address] [facility] [id number] [place] [address]- 385[address] Jun, 2014 [facility] [place] [facility] [address] [facility] [id number] [place] [address]- 8542 Jun, 2014 [facility] [place] [facility] [address] [id number] [place] [address] 6286 Jun, 2014 [facility] [address] [id number] [place] [address] Jun, 2014 [facility] [place] [facility] [address] [id number] [place] [address] 8576 Jun, [facility] [address] [id number] [place] [address] 0384 May, [facility] [place] [facility] [address] [id number] [place] [address] 8925 May, [facility] [address] [id number] [place] [address] Apr[facility] [address] [id number] [place] [address] Apr, [facility] [place] [facility] [address] [id number] [place] [address] 5[address] Apr, [facility] [address] [id number] [place] [address]- 8023 Apr, [facility] [place] [facility] [address] [id number] [place] [address]- 0645 Apr, [facility] [address] [id number] [place] [address]- 0161 Apr, [facility] [place] [facility] [address] [id number] [place] [address]- 2871 Apr, [facility] [place] [facility] [address] [id number] [place] [address]- 2541 Apr, [facility] [place] [facility] [address] [id number] [place] [address]- 0626 Apr, [facility] [place] [facility] [address] [id number] [place] [address]- 7456 Apr, [facility] [place] [facility] [address] [id number] [place] [address]- 5503 Apr, [facility] [place] [facility] [address] [id number] [place] [address]- 9620 Apr, [facility] [place] [facility] [address] [id number] [place] [address]- 7833 Apr, [facility] [place] [facility] [address] [id number] [place] [address]- 4065 Apr, [facility] [place] [facility] [address] [id number] [place] [address]- 5335 Apr, [facility] [place] [facility] [address] [id number] [place] [address]- 4360 Apr, [facility] [place] [facility] [address] [id number] [place] [address]- 7076 Apr, [facility] [place] [facility] [address] [id number] [place] [address]- 8047 Apr, [facility] [place] [facility] [address] [id number] [place] [address]- 4787 Apr, [facility] [place] [facility] [address] [id number] [place] [address]- 9853 Apr, [facility] [place] [facility] [address] [id number] [place] [address]- 0257 Mar, [facility] [place] [facility] [address] [id number] [place] [address]- 4773 Mar, [facility] [place] [facility] [address] [id number], [place] [address]- 8[address] Mar, [facility] [place] [facility] [address] [id number] [place] [address]- 6310 Mar, [facility] [place] [facility] [address] [id number] [place] [address]- 3264 Mar, [facility] [place] [facility] [address] [id number] [place] [address]- 1859 Mar, [facility] [place] [facility] [address] [id number] [place] [address]- 8300 Mar, [facility] [place] [facility] [address] [id number] [place] [address]- 0487 Mar, [facility] [place] [facility] [address] [id number] [place] [address]- 7674 Mar, [facility] [place] [facility] [address] [id number] [place] [address]- 4254 Mar, [facility] [place] [facility] [address] [id number] [place] [address]- 5398 Mar, [facility] [place] [facility] [address] [id number] [place] [address]- 1177 Mar, [facility] [place] [facility] [address] [id number] [place] [address]- 0272 Mar, [facility] [place] [facility] [address] [id number] [place] [address]- 1597 Feb, [facility] [place] [facility] [address] [id number] [place] [address]- 7837 Feb, [facility] [place] [facility] [address] [id number] [place] [address]- 7511 30 Feb, 2014 [facility] [place] [facility] [address] [facility] [id number] [place] [address]- 3727 Feb, [facility] [place] [facility] [address] [id number] [place] [address]- 4848 Feb, [facility] [place] [facility] [address] [id number] [place] [address]- 8231 Feb, [facility] [place] [facility] [address] [id number] [place] [address]- 9760 Feb, [facility] [place] [facility] [address] [id number] [place] [address]- 8416 Feb, [facility] [place] [facility] [address] [facility] [id number] [place] [address]- 2384 Feb, [facility] [place] [facility] [address] [id number] [place] [address]- 9464 Feb, [facility] [place] [facility] [address] [id number] [place] [address]- 2589 Feb, [facility] [place] [facility] [address] [id number] [place] [address]- 9718 Feb, [facility] [place] [facility] [address] [id number] [place] [address]- 9666 10 Feb, 2014 [facility] [place] [facility] [address] [id number] [place] [address]- 2977 Feb, [facility] [place] [facility] [address] [id number] [place] [address]- 0001 Feb, [facility] [place] [facility] [address] [id number] [place] [address]- 5706 10 Jan, 2014 [facility] [place] [facility] [address] [id number] [place] [address]- 7035 08 Jan, 2013 [facility] [place] [facility] [address] [id number] [place] [address]- 9419 08 Jan, 2014 [facility] [place] [facility] [address] [id number] [place] [address]- 3262 08 Jan, 2013 [facility] [place] [facility] [address] [id number] [place] [address]- 8573 Jan, [facility] [place] [facility] [address] [id number] [place] [address]- 4985 Dec, [facility] [place] [facility] [address] [id number] [place] [address]- 5252 Dec, [facility] [place] [facility] [address] [id number] [place] [address]- 0887 Dec, [facility] [place] [facility] [address] [id number] [place] [address]- 8639 Dec, [facility] [place] [facility] [address] [id number] [place] [address]- 6772 Nov, [facility] [place] [facility] [address] [id number] [place] [address]- 8347 Nov, [facility] [place] [facility] [address] [id number] [place] [address]- 6546 Nov, [facility] [place] [facility] [address] [id number] [place] [address]- 7286 Nov, [facility] [place] [facility] [address] [id number] [place] [address]- 9021 Nov, [facility] [place] [facility] [address] [id number] [place] [address]- 0027 Nov, [facility] [place] [facility] [address] [id number] [place] [address]- 7928 Nov, [facility] [place] [facility] [address] [id number] [place] [address]- 5804 Nov, [facility] [place] [facility] [address] [id number] [place] [address]- 1146 Nov, [facility] [place] [facility] [address] [id number] [place] [address]- 9833 Nov, [facility] [place] [facility] [address] [id number] [place] [address]- 6652 Oct, [facility] [place] [facility] [address] [id number] [place] [address]- 2676 Oct, [facility] [place] [facility] [address] [id number] [place] [address]- 8787 September, [facility] [place] [facility] [address] [id number] [place] [address]- 1723 September, [facility] [place] [facility] [address] [id number] [place] [address]- 8707 September, [facility] [place] [facility] [address] [id number] [place] [address]- 2584 September, [facility] [place] [facility] [address] [id number] [place] [address]- 8034 16 Aug, 2013 [facility] [address] [id number] [place] [address]- 9770 14 Aug, 2013 [facility] [place] [facility] [address] [id number] [place] [address]- 7507 14 Aug, 2013 [facility] [address] [id number] [place] [address]- 4886 24 Jul, 2013 [facility] [place] [facility] [address] [id number] [place] [address]- 8854 24 Jul, 2013 [facility] [address] [id number] [place] [address]- 2845 14 Jul, 2013 [facility] [address] [id number] [place] [address]- 0348 14 Jul, 2013 [facility] [address] [id number] [place] [address]- 4653 20 May, 2013 [facility] [address] [id number] [place] [address]- 0864 17 May, 2013 [facility] [address] [id number] [place] [address]- 0556 17 May, 2013 [facility] [address] [id number] [place] [address]- 0671 15 Mar, 2013 [facility] [place] [facility] [address] [id number] [place] [address]- 1048 15 Mar, 2013 [facility] [place] [facility] [address] [id number] [place] [address]- 5022 13 Mar, 2013 [facility] [place] [facility] [address] [id number] [place] [address]- 6611 13 Mar, 2013 [facility] [place] [facility] [address] [id number] [place] [address]- 1915 16 Feb, 2013 [facility] [place] [facility] [address] [id number] [place] [address]- 1777 16 Feb, 2013 [facility] [place] [facility] [address] [id number] [place] [address]- 4527 Feb, [facility] [place] [facility] [address] [id number] [place] [address]- 8788 16 Jan, 2013 [facility] [place] [facility] [address] [id number] [place] [address]- 4724 Jan, [facility] [place] [facility] [address] [id number] [place] [address] 2549 Jan, [facility] [address] [id number] [place] [address]- 9088 Dec, [facility] [place] [facility] [address] [id number] [place] [address]- 1983 Dec, [facility] [address] [id number] [place] [address]- 8152 Dec, [facility] [address] [id number] [place] [address]- 7558 Dec, [facility] [place] [facility] [address] [id number] [place] [address]- 9526 Nov, [facility] [address] [id number] [place] [address]- 1532 Oct, [facility] [place] [facility] [address] [id number] [place] [address]- 6627 Oct, [facility] [place] [facility] [address] [id number], [place] [address]- 5929 September, [facility] [place] [facility] [address] [id number] [place] [address]- 6327 September, [facility] [place] [facility] [address] [id number] [place] [address]- 8446 September, [facility] [place] [facility] [address] [id number] [place] [address]- 3210 Aug, [facility] [place] [facility] [address] [id number], [place] [address]- 2325 18 Aug, 2012 [facility] [address] [id number] [place] [address]- 7344 17 Aug, 2012 [facility] [address] [id number] [place] 1383 09 Aug, 2012 [facility] [address] [id number] [place] [address]- 9822 26 Jul, 2012 [facility] [address] [id number] [place] [address]- 4158 25 Jul, 2012 [facility] [address] [id number] [place] [address]- 0096 21 Jul, 2012 [facility] [address] [id number] [place] [address]- 8763 15 Jul, 2012 [facility] [address] [id number] [place] [address]- 6780 14 Jul, 2012 [facility] [address] [id number] [place] [address]- 7554 13 Jul, 2012 [facility] [address] [id number] [place] [address]- 4926 Jul, [facility] [address] [facility] [id number] [place] [address]- 7932 Jun, [facility] [address] [id number] [place] [address]- 1428 Jun, [facility] [place] [facility] [address] [id number] [place] [address]- 2802 Jun, [facility] [place] [facility] [address] [id number] [place] [address]- 0173 Jun, [facility] [place] [facility] [address] [id number] [place] [address]708 May, [facility] [place] [facility] [address] [id number] [place] [address]- 5091 May, [facility] [place] [facility] [address] [id number] [place] [address]- 0923 May, [facility] [place] [facility] [address] [id number] [place] [address]- 1280 May, [facility] [place] [facility] [address] [id number] [place] [address]- 9027 May, [facility] [place] [facility] [address] [id number] [place] [address]- 0138 Apr, [facility] [place] [facility] [address] [id number] [place] [address]- 7760 Apr, [facility] [place] [facility] [address] [id number] [place] [address]- 3018 Mar, [facility] [place] [facility] [address] [id number] [place] [address]- 4915 Mar, [facility] [place] [facility] [address] [id number] [place] [address]- 6446 Mar, [facility] [place] [facility] [address] [id number] [place] [address]- 6681 Mar, [facility] [place] [facility] [address] [id number] [place] [address]- 2432 Mar, [facility] [place] [facility] [address] [id number] [place] [address]- 8382 Mar, [facility] [place] [facility] [address] [id number] [place] [address]- 2647 Mar, [facility] [place] [facility] [address] [id number] [place] [address]- 1339 Mar, [facility] [place] [facility] [address] [id number] [place] [address]- 3678 Mar, [facility] [place] [facility] [address] [id number] [place] [address]- 7868 Mar, [facility] [place] [facility] [address] [id number] [place] [address]- 0138 Feb, [facility] [place] [facility] [address] [id number] [place] [address]- 2590 Feb, [facility] [place] [facility] [address] [id number] [place] [address]- 4093 Feb, [facility] [place] [facility] [address] [id number] [place] [address]228 Feb, [facility] [place] [facility] [address] [id number] [place] [address]- 5027 Feb, [facility] [place] [facility] [address] [id number] [place] [address]- 8751 Feb, [facility] [place] [facility] [address] [id number] [place] [address]- 1698 Feb, [facility] [place] [facility] [address] [id number] [place] [address]- 0600 Jan, [facility] [place] [facility] [address] [id number] [place] [address]- 2828 Jan, [facility] [place] [facility] [address] [id number] [place] [address]- 4204 Dec, [facility] [place] [facility] [address] [id number] [place] [address]- 3291 Dec, [facility] [place] [facility] [address] [id number] [place] [address]- 1425 Dec, [facility] [place] [facility] [address] [id number], [place] [address]- 1587 Dec, [facility] [place] [facility] [address] [id number] [place] [address]- 5111 Dec, [facility] [place] [facility] [address] [id number] [place] [address]- 3960 Dec, [facility] [place] [facility] [address] [id number] [place] [address]- 7020 Nov, [facility] [place] [facility] [address] [id number] [place] [address]- 2742 Nov, [facility] [address] [id number] [place] [address]- 2252 Nov, [facility] [place] [facility] [address] [id number] [place] [address]- 9961 Nov, [facility] [address] [id number] [place] [address]- 0250 September, [facility] [place] [facility] [address] [id number] [place] [address]- 9846 September, [facility] [address] [id number] [place] [address]- 5120 September, [facility] [place] [facility] [address] [id number] [place] [address]- 9472 Jul, [facility] [address] [id number] [place] [address]- 1008 Jun, [facility] [address] [id number] [place] [address]- 9824 Jun, [facility] [address] [id number] [place] [address]- 3440 Jun, [facility] [address] [id number] [place] [address]- 6784 Apr, [facility] [place] [facility] [address] [id number] [place] [address]- 5352 Mar, [facility] [place] [facility] [address] [id number] [place] [address]- 9184 Mar, [facility] [place] [facility] [address] [id number] [place] [address]- 1361 Feb, [facility] [place] [facility] [address] [id number] [place] [address]- 9896 Feb, [facility] [place] [facility] [address] [id number] [place] [address]- 3812 Feb, [facility] [address] [facility] [id number] [place] [address]- 6789 Jul, [facility] [address] [facility] [id number] [place] [address]- 8360 Feb, IMMUNIZATIONS No Known Immunizations SOCIAL HISTORY Never Assessed REASON FOR VISIT f/u PLAN OF CARE Activity Details Follow Up Not rescheduled Reason:Depression, anger, anxiety VITAL SIGNS MEDICATIONS Medication Instructions Dosage Frequency Start Date End Date Duration Status Glucocard Expression Test - as directed 24h Nov, 50 Unknown Methotrexate 2.5 MG Orally 1 time per week 6 Unknown Spironolactone 25 MG TAKE ONE TABLET BY MOUTH ONCE DAILY 30 Unknown Potassium Chloride Marie ER 20 MEQ TAKE ONE TABLET BY MOUTH ONCE DAILY WITH FOOD 30 Unknown PredniSONE 20 MG 1 TABLET ONCE A DAY ORALLY 30 DAY(S) 30 Unknown Folic Acid 1 MG TAKE ONE TABLET BY MOUTH ONCE DAILY (DO NOT TAKE ON DAYS YOU TAKE METHOTREXATE) 30 Unknown Lowell 7.5-325 MG Orally every 6 hrs 1 tablet as needed 6h 14 Jun, 2017 Unknown Lisinopril-Hydrochlorothiazide 20-25 MG TAKE ONE TABLET BY MOUTH ONCE DAILY 30 Unknown Magnesium Oxide 400 mg Orally Once a day 1 tablet as needed 24h 30 day(s) Unknown Benzonatate 100 MG TAKE ONE CAPSULE BY MOUTH THREE TIMES DAILY NEEDED 10 Unknown RESULTS No Results PROCEDURES Procedure Date Ordered Result Body Site Psychotherapy, patient &/family, 45 minutes, established patient September 08, 2017 INSTRUCTIONS MEDICATIONS ADMINISTERED No Known Medications MEDICAL (GENERAL) HISTORY Type Description Date Medical History type II diabetes-dx'd 12/2010 Medical History dysfunctional uterine bleeding--endometrial bx 12/2010 Medical History asthma Medical History hypertension Medical History obesity Medical History anxiety Medical History autoimmune disease Surgical History x1 Hospitalization History child Hospitalization History Asthma
--- OUTSIDE RECORDS SUMMARY | 2018-02-02 23:47 | XMS REPORT ---
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 Name Role Phone ROSANA Scott Unavailable PROBLEMS Type Condition ICD9-CM Code ONG69-EV Code Onset Dates Condition Status SNOMED Code Problem Plantar wart of both feet B07.0 Active [id number] Problem Controlled type 2 diabetes mellitus without complication, without long -term current use of insulin E11.9 Active 697369095 Problem Lumbago with sciatica, left side M54.42 Active 097760290 Problem Lumbago with sciatica, right side M54.41 Active 497092044 Problem Morbid (severe) obesity due to excess calories E66.01 Active 498989640 Problem Body mass index (BMI) of 45.0-49.9 in adult Z68.42 Active 627751999 Problem Tachycardia with heart rate 121-140 beats per minute R00.0 Active 5107350 Problem Dermatomyositis M33.90 Active 954958131 Problem Enlarged thyroid gland E04.9 Active 8479467 Problem Allergic rhinitis due to pollen J30.1 Active 48040091 Problem Mood disorder F39 Active 77778645 Problem Menopause Z78.0 Active 579025440 Problem Anxiety F41.9 Active 61071180 Problem Other chronic pain G89.29 Active 81670397 Problem Diabetes type 2, controlled E11.9 Active 83131027 Problem Arthritis M19.90 Active 7354396 Problem Osteoarthritis of right knee, unspecified osteoarthritis type M17.9 Active 709618082 Problem Plantar warts B07.0 Active 18989871 ALLERGIES Substance Reaction Event Type Date Status Fluarix Quadrivalent vomiting Drug Allergy Aug, Active Zoloft makes very angry Drug Allergy Aug, Active Fluarix vomiting Drug Allergy Aug, Active Aspirin rash Drug Allergy Aug, Active Latex, Natural Rubber rash Non Drug Allergy Aug, Active ENCOUNTERS Encounter Location Date Diagnosis [facility] [address], [place] [address] Jan, [facility] [id number] [place] [address] 49027- 1125 Dec, [facility] [id number] [place] [address] 68675- 7803 Dec, [facility] [id number] [place] [address] 00244- 8963 Nov, Lumbar radiculopathy M54.16 [facility] [id number] [place] [address] 01056- 7283 Nov, [facility] [id number] [place] [address] 97356- 8594 Nov, Mood disorder F39 [facility] [id number] [place] [address] 11329- 2642 Nov, Lumbago with sciatica, right side M54.41 and Other chronic pain G89.29 [facility] [id number] [place] [address] 07499- 9085 Nov, Acute right ankle pain M25.571 [facility] [id number] [place] [address] 53808- 0354 Nov, [facility] [id number] [place] [address] 66378- 0955 Oct, [facility] [id number] [place] [address] 56479- 5002 Oct, Plantar wart of both feet B07.0 [facility] [id number] [place] [address] 41440- 8904 Oct, [facility] [id number] [place] [address] 35573- 8181 Oct, Acute right ankle pain M25.571 and Plantar wart of both feet B07.0 [facility] [id number] [place] [address] 09726- 0428 September, Other chronic pain G89.29 [facility] [address] 90598- 3147 September, Other chronic pain G89.29 [facility] [id number] [place] [address] 25389- 5131 September, Other chronic pain G89.29 [place] [address] 23562- 2696 Aug, Mood disorder F39 [facility] [address] 78935- 7302 Aug, Other chronic pain G89.29 ; Controlled type 2 diabetes mellitus without complication, without long-term current use of insulin E11.9 ; Low back pain M54.5 and Tinea corporis B35.4 [facility] [address] 34541- 9376 Aug, Mood disorder F39 and Anxiety F41.9 [facility] [id number] [place] [address] 17182- 3969 Aug, Mood disorder F39 and Anxiety F41.9 [facility] [id number] [place] [address] 05604- 1676 Jul, [facility] [id number] [place] [address] 33024 -7643 Jul, Scabies B86 and BMI 45.0-49.9, adult Z68.42 [facility] [id number] [place] [address] 68410- 1523 Jul, [facility] [address] 34554- 3724 Jul, Mood disorder F39 and Anxiety F41.9 [facility] [id number] [place] [address] 68280- 0632 Jul, [facility] [address], [place] [address] 27 Jun, 2017 Bronchitis J40 ; Dark urine R82.99 and BMI 45.0-49.9, adult Z68.42 [facility] [id number] [place] [address] 04144- 1224 14 Jun, 2017 Acute pain of right shoulder M25.511 and Acute pain of right knee M25.561 [facility] [id number] [place] [address] 22782- 5303 May, BMI 40.0-44.9, adult Z68.41 ; Controlled type 2 diabetes mellitus without complication, without long-term current use of insulin E11.9 ; Muscle cramping R25.2 ; Hot flashes R23.2 ; Mood disorder F39 ; Anxiety F41.9 and Morbid (severe) obesity due to excess calories E66.01 [facility] [id number] [place] [address] 81501- 2149 May, BMI 40.0-44.9, adult Z68.41 ; Controlled type 2 diabetes mellitus without complication, without long-term current use of insulin E11.9 ; Muscle cramping R25.2 and Hot flashes R23.2 [place] [place] [id number] [place] [address] 57584- 4334 May, Tachycardia with heart rate 121-140 beats per minute R00.0 ; Morbid (severe) obesity due to excess calories E66.01 ; Diabetes type 2, controlled E11.9 and Enlarged thyroid gland E04.9 [facility] [id number] [place] [address] 80993- 4837 May, Encounter for well woman exam with [...] Dysuria R30.0 and Screening breast examination Z12.31 [facility] [address] 17242- 3232 Apr, Mood disorder F39 ; Other chronic pain G89.29 and Anxiety F41.9 [facility] [address] 85355- 2569 Apr, Lumbago with sciatica, left side M54.42 and Other chronic pain G89.29 [facility] [address] 20370- 3440 Apr, Lupus erythematosus L93.0 [facility] [address] 57893- 6069 Mar, Plantar wart of both feet B07.0 [facility] [address] 27031- 4343 Mar, Lupus erythematosus L93.0 and Sinus drainage J34.89 [facility] [address] 06784- 2285 Mar, Mood disorder F39 ; Other chronic pain G89.29 and Anxiety F41.9 [facility] [id number] [place] [address] 63690- 4399 Mar, Mood disorder F39 ; Arthritis M19.90 and Plantar warts B07.0 [facility] [id number] [place] [address] 53419- 0110 Feb, Lupus erythematosus L93.0 [facility] [id number] [place] [address] 53798- 2214 Feb, Other chronic pain G89.29 [facility] [id number] [place] [address]12 Feb, Mood disorder F39 and Anxiety F41.9 [facility] [address] 05004- 8918 Jan, [facility] [address], [place] [address] 7019 Jan, Mood disorder F39 [facility] [id number] [place] [address] 03863- 8540 Dec, Nail, ingrown L60.0 [facility] [id number] [place] [address] 70354- 1922 Dec, Nail, ingrown L60.0 [facility] [id number] [place] [address] 97435- 3860 Nov, Mood disorder F39 and Anxiety F41.9 [facility] [id number] [place] [address] 77076- 5330 Nov, Sinus drainage J34.89 ; Hot flashes R23.2 ; Anxiety F41.9 and Diabetes type 2, controlled E11.9 [facility] [id number] [place] [address] 64346- 2184 Nov, Nail, ingrown L60.0 [facility] [id number] [place] [address] 18351- 4946 Oct, Anxiety F41.9 and Mood disorder F39 [facility] [id number] [place] [address] 79590- 7839 Oct, Nail, ingrown L60.0 and Anxiety F41.9 [facility] [id number] [place] [address] 34889- 8698 Oct, Lupus erythematosus L93.0 [facility] [id number] [place] [address] 47479- 3542 September, [facility] [id number] [place] [address] 88971- 9352 September, [facility] [id number] [place] [address] 00672- 4108 September, Lupus erythematosus L93.0 [facility] [id number] [place] [address] 16577- 7848 Aug, [facility] [id number] [place] [address] 02038- 6165 Aug, Mood disorder F39 and Anxiety F41.9 [facility] [id number] [place] [address] 75989- 8714 Aug, Lupus erythematosus L93.0 ; Diabetes type 2, controlled E11.9 and Localized edema R60.0 [facility] [id number] [place] [address] 71275- 7445 Aug, [facility] [facility] [address] 02416- 1792 Jul, Anxiety F41.9 and Mood disorder F39 [facility] [id number] [place] [address] 35742- 9626 Jul, Diabetes type 2, controlled E11.9 [facility] [id number] [place] [address] 02148- 6513 Jun, Anxiety F41.9 [facility] [id number] [place] [address] 81709- 9020 May, [facility] [id number] [place] [address] 56630- 6117 May, [facility] [id number] [place] [address] 02005- 9631 May, Nausea R11.0 ; Other chronic pain G89.29 and Pain in right knee M25.561 [facility] [id number] [place] [address] 47244- 9344 May, [facility] [id number] [place] [address] 85119- 9429 Apr, Tear of medial meniscus of right knee, current, unspecified tear type, subsequent encounter S83.241D and Tear of lateral meniscus of right knee, current, unspecified tear type, subsequent encounter S83.281D [facility] [id number] [place] [address] 96654- 5345 Apr, Anxiety F41.9 and Mood disorder F39 [facility] [id number] [place] [address] 99871- 0625 Apr, Anxiety F41.9 [facility] [id number] [place] [address] 48053- 3029 Apr, [facility] [id number] [place] [address] 31192- 1107 Mar, [facility] [id number] [place] [address] 16540- 7280 Mar, Lupus erythematosus L93.0 and Diabetes type 2, controlled E11.9 [facility] [id number] [place] [address] 89217- 7906 Mar, Mood disorder F39 [facility] [id number] [place] [address] 52744- 4828 Mar, Tear of lateral meniscus of right knee, current, unspecified tear type, initial encounter S83.281A and Osteoarthritis of right knee, unspecified osteoarthritis type M17.9 [facility] [id number] [place] [address] 57924- 3964 Mar, [facility] [id number] [place] [address] 20226- 8636 Feb, Mood disorder F39 [facility] [id number] [place] [address] 42014- 1107 Feb, Rash R21 [facility] [id number] [place] [address] 10925- 2786 Feb, [facility] [id number] [place] [address] 57619- 8266 Jan, Other chronic pain G89.29 and Muscle spasm M62.838 [facility] [id number] [place] [address] 03277- 9694 Jan, Mood disorder F39 [facility] [id number] [place] [address] 41966- 1628 Jan, Pain in right knee M25.561 ; Other chronic pain G89.29 and Muscle spasm M62.838 [facility] [id number] [place] [address] 61872- 7235 Dec, [facility] [id number] [place] [address] 32214- 0353 Dec, [facility] [id number] [place] [address] 07649- 4418 Nov, [facility] [id number] [place] [address] 78220- 3843 Nov, Mood disorder F39 [facility] [id number] [place] [address] 47925- 0280 Nov, Diabetes type 2, controlled E11.9 ; Bronchitis J40 ; Edema, unspecified type R60.9 ; Weight gain R63.5 and Right knee pain, unspecified chronicity M25.561 [facility] [id number] [place] [address] 74052- 8357 Oct, Mood disorder F39 [facility] [id number] [place] [address] 66871- 7912 Oct, Lupus erythematosus L93.0 and Bilateral edema of lower extremity R60.0 [facility] [place] [id number] [place] [address] 74945- 7257 Oct, Mood disorder F39 and Anxiety F41.9 [facility] [id number] [place] [address] 47339- 9049 September, Mood disorder F39 ; Anxiety F41.9 and Anger reaction R45.4 [place] [id number] [place] [address] 61067- 8450 September, Diabetes type 2, controlled E11.9 ; Edema, unspecified type R60.9 and Fatigue, unspecified type R53.83 [facility] [id number] [place] [address] 74528- 4308 Aug, Mood disorder F39 and Generalized anxiety disorder F41.1 [facility] [id number] [place] [address] 72339- 7160 Aug, Diabetes type 2, controlled E11.9 ; Sinusitis J32.9 and Mood disorder F39 [facility] [id number] [place] [address] 31902- 9192 Aug, Lupus erythematosus L93.0 [facility] [id number] [place] [address] 32366- 4049 Aug, [facility] [id number] [place] [address] 54786- 2412 Aug, [facility] [id number] [place] [address] 54258- 9491 Jul, Diabetes type 2, controlled E11.9 [facility] [id number] [place] [address] 59309- 6317 Jul, Mood disorder F39 and Depression F32.9 [facility] [id number] [place] [address] 17690- 6101 Jul, Lupus erythematosus L93.0 and Diabetes type 2, controlled E11.9 [facility] [id number] [place] [address] 96034- 1704 Jul, Mood disorder F39 and Anxiety F41.9 [facility] [id number] [place] [address] 37788- 2653 Jul, [facility] [id number] [place] [address] 93853- 2744 Jul, [facility] [id number] [place] [address] 99451- 9470 Jun, Mood disorder F39 and Anxiety F41.9 [facility] [id number] [place] [address] 89461- 6777 Jun, Mood disorder F39 [facility] [address], [place] [address]- 5763 18 Jun, 2015 [facility] [id number] [place] [address] 32477- 4976 Jun, [facility] [id number] [place] [address] 61996- 0316 Jun, Mood disorder F39 [facility] [id number] [place] [address] 87164- 3102 Jun, [facility] [id number] [place] [address] 92880- 3933 May, [facility] [id number] [place] [address] 28342- 4613 May, [facility] [id number] [place] [address] 95595- 5622 May, [facility] [id number] [place] [address] 76803- 1532 May, [facility] [id number] [place] [address] 09836- 4302 May, Anxiety F41.9 ; Dermatomyositis M33.90 and Diabetes type 2, controlled E11.9 [facility] [id number] [place] [address] 85182 -3939 May, Sinusitis J32.9 and Cough R05 [facility] [address], [place] [address]- 2990 May, Mood disorder F39 [facility] [id number] [place] [address] 50419- 6517 May, Adjustment disorder with mixed anxiety and depressed mood F43.23 [facility] [address], [place] [address]- 2077 Apr, [facility] [address], [place] [address]- 8540 Apr, [facility] [id number] [place] [address] 31245- 2664 Apr, Generalized anxiety disorder F41.1 and Mood disorder F39 [facility] [id number] [place] [address] 27122- 5196 Mar, [facility] [id number] [place] [address] 07607- 0812 Mar, [facility] [id number] [place] [address] 86444- 5199 Mar, [facility] [id number] [place] [address] 34863- 2474 Mar, Mood disorder F39 [facility] [id number] [place] [address] 10897- 9519 Feb, [facility] [id number] [place] [address] 07587- 7003 Feb, Diabetes E11.9 and Bronchitis J40 [facility] [id number] [place] [address] 98916- 7079 Feb, [facility] [id number] [place] [address] 73855- 5895 Feb, [facility] [id number] [place] [address] 10922- 2910 Feb, Major depression, recurrent, full remission F33.42 and KELLY ( generalized anxiety disorder) F41.1 [facility] [id number] [place] [address] 06080- 2635 Feb, [facility] [id number] [place] [address] 50494- 3785 Feb, Single major depressive episode, in partial or unspecified remission F32.5 [facility] [id number] [place] [address] 57912- 5733 Jan, Fatigue 780.79 [facility] [id number] [place] [address] 73517- 8766 Jan, [facility] [id number] [place] [address] 13796- 8648 Jan, Diabetes with other specified manifestations, type II or unspecified type, not stated as uncontrolled 250.80 [facility] [id number] [place] [address] 60364- 5340 Jan, [facility] [id number] [place] [address] 54749- 6356 Dec, Hot flashes 627.2 ; Memory loss 780.93 and Joint pain 719.40 [place] [id number] [place] [address] 05809- 5707 Dec, Major depression, recurrent 296.30 ; Generalized anxiety disorder 300.02 ; Adjustment disorder with depressed mood 309.0 and No condition on [place] II V71.09 [facility] [place] [id number] [place] [address] 67068- 8313 Dec, [facility] [place] [id number] [place] [address] 34039- 4247 Nov, Cognitive and neurobehavioral dysfunction 294.9 ; Major depressive disorder, recurrent episode, moderate degree 296.32 and Anxiety state , unspecified 300.00 [place] [id number] [place] [address] 89904- 2146 Nov, [facility] [id number] [place] [address] 83988- 1164 Nov, Bronchitis 490 and Diabetes with other specified manifestations, type II or unspecified type, not stated as uncontrolled 250.80 [place] [id number] [place] [address] 83763- 0510 Nov, Major depressive disorder, recurrent episode, moderate 296.32 and Anxiety disorder, unspecified 300.00 [place] [id number] [place] [address] 58491- 3278 Nov, Anxiety, generalized 300.02 ; Intermittent explosive disorder 312.34 ; No condition on [place] II V71.09 and No condition on axis III V71.09 [place] [id number] [place] [address] 15551- 3702 Oct, Diabetes with other specified manifestations, type II or unspecified type, not stated as uncontrolled 250.80 ; Urinary tract infection, site not specified 599.0 and Bronchitis [address] [place] [id number] [place] [address] 45080- 8954 Oct, Intermittent explosive disorder 312.34 ; Bipolar 1 disorder , depressed, moderate 296.52 ; Major depression, chronic 296.20 ; No condition on [place] II V71.09 and No condition on axis III V71.09 [place] [id number] [place] [address] 50334- 1237 Oct, Major depressive disorder, recurrent episode, moderate 296.32 ; Anxiety state 300.00 ; Cognitive decline 294.9 and No condition on [place] II V71.09 [place] [id number] [place] [address] 45438- 3220 Oct, [address] 69534- 3916 Oct, Major depressive disorder, recurrent episode, moderate 296.32 ; Anxiety disorder, unspecified 300.00 and Persistent disorder of initiating or maintaining sleep 307.42 [place] [id number] [place] [address] 01917- 0586 September, Diabetes with other specified manifestations, type II or unspecified type, not stated as uncontrolled 250.80 ; Memory loss 780.93 and Cognitive complaints 799.59 [place] [id number] [place] [address] 09064- 9557 September, No condition on [place] II V71.09 ; Major depression, recurrent 296.30 and Persistent mood [affective] disorder, unspecified 296.90 [place] [id number] [place] [address] 32488- 3952 Aug, [facility] [place] [facility] [address] [id number] [place] [address]- 95[address] Aug, [facility] [place] [facility] [address] [id number] [place] [address] Aug, [facility] [place] [facility] [address] [id number] [place] [address] Jul, [facility] [place] [facility] [address] [id number] [place] [address] Jul, [facility] [place] [facility] [address] [id number] [place] [address] Jul, [facility] [place] [facility] [address] [id number] [place] [address] Jul, [facility] [place] [facility] [address] [facility] [id number] [place] [address] Jul, [facility] [place] [facility] [address] [id number] [place] [address] Jun, [facility] [place] [facility] [address] [id number] [place] [address] Jun, [facility] [place] [facility] [address] [facility] [id number] [place] [address] Jun, [facility] [place] [facility] [address] [facility] [id number] [place] [address] Jun, 2014 [facility] [place] [facility] [address] [id number], [place] [address] Jun, [facility] [place] [facility] [address] [id number] [place] [address] Jun, [facility] [place] [facility] [address] [id number] [place] [address] 9[address] Jun, [facility] [place] [facility] [address] [facility] [id number] [place] [address] 9007 Jun, [facility] [place] [facility] [address] [facility] [id number] [place] [address] 68[address] Jun, 2014 [facility] [place] [facility] [address] [id number] [place] [address] 97[address] Jun, 2014 [facility] [place] [facility] [address] [id number] [place] [address] Jun, 2014 [facility] [place] [facility] [address] [id number] [place] [address] 7786 Jun, 2014 [facility] [place] [facility] [address] [id number] [place] [address] 6625 Jun, 2014 [facility] [place] [facility] [address] [id number] [place] [address] May, [facility] [place] [facility] [address] [facility] [id number] [place] [address] May, [facility] [place] [facility] [address] [facility] [id number] [place] [address] 5449 Apr, [facility] [place] [facility] [address] [id number] [place] [address] 9929 Apr, [facility] [place] [facility] [address] [id number] [place] [address] 79[address] Apr, [facility] [place] [facility] [address] [facility] [id number] [place] [address] 3196 Apr, [facility] [place] [facility] [address] [id number] [place] [address] 2546 Apr, [facility] [place] [facility] [address] [id number] [place] [address]- 2546 Apr, [facility] [place] [facility] [address] [id number] [place] [address] Apr, [facility] [place] [facility] [address] [id number] [place] [address]- 2546 Apr, [facility] [place] [facility] [address] [facility] [id number] [place] [address] Apr, [facility] [place] [facility] [address] [id number] [place] [address]- 52[address] Apr, [facility] [place] [facility] [address] [id number] [place] [address]- 4973 Apr, [facility] [place] [facility] [address] [id number] [place] [address]- 9051 Apr, [facility] [place] [facility] [address] [id number] [place] [address]- 3556 Apr, [facility] [place] [facility] [address] [id number] [place] [address]- 9549 Apr, [facility] [place] [facility] [address] [id number] [place] [address]- 4038 Apr, [facility] [place] [facility] [address] [id number] [place] [address]- 8987 Apr, [facility] [place] [facility] [address] [id number] [place] [address]- 5182 Apr, [facility] [place] [facility] [address] [id number] [place] [address]- 0334 Apr, [facility] [place] [facility] [address] [id number] [place] [address]- 8439 Apr, [facility] [place] [facility] [address] [id number] [place] [address]- 6803 Apr, [facility] [place] [facility] [address] [id number] [place] [address]- 4876 Mar, [facility] [place] [facility] [address] [id number] [place] [address]- 1292 Mar, [facility] [place] [facility] [address] [id number] [place] [address]- 7337 Mar, [facility] [place] [facility] [address] [id number] [place] [address]- 1138 Mar, [facility] [place] [facility] [address] [id number] [place] [address]- 2864 Mar, [facility] [place] [facility] [address] [id number] [place] [address] 8170 Mar, [facility] [place] [facility] [address] [id number] [place] [address]- 6748 Mar, [facility] [place] [facility] [address] [id number] [place] [address]- 9200 Mar, [facility] [place] [facility] [address] [id number] [place] [address]- 0860 Mar, [facility] [place] [facility] [address] [id number] [place] [address]- 5044 Mar, [facility] [place] [facility] [address] [id number] [place] [address]- 9939 Mar, [facility] [place] [facility] [address] [id number] [place] [address]- 2722 Mar, [facility] [place] [facility] [address] [id number] [place] [address]- 2318 Mar, [facility] [place] [facility] [address] [id number] [place] [address]- 8640 Feb, [facility] [place] [facility] [address] [id number] [place] [address]- 0938 Feb, [facility] [place] [facility] [address] [id number] [place] [address]- 7839 Feb, [facility] [place] [facility] [address] [id number], [place] [address] Feb, [facility] [place] [facility] [address] [id number] [place] [address]- 0967 Feb, [facility] [place] [facility] [address] [id number], [place] [address] 8428 Feb, [facility] [place] [facility] [address] [id number], [place] [address] 38[address] Feb, [facility] [place] [facility] [address] [id number] [place] [address]- 0887 Feb, [facility] [place] [facility] [address] [id number] [place] [address]- 7488 Feb, [facility] [place] [facility] [address] [id number] [place] [address]- 5196 Feb, [facility] [place] [facility] [address] [id number] [place] [address]- 4671 Feb, [facility] [place] [facility] [address] [id number] [place] [address]- 9545 Feb, [facility] [place] [facility] [address] [id number] [place] [address]- 9546 10 Feb, 2014 [facility] [place] [facility] [address] [id number] [place] [address]- 2715 Feb, [facility] [place] [facility] [address] [id number] [place] [address]- 9079 07 Feb, 2014 [facility] [place] [facility] [address] [id number] [place] [address]- 8194 10 Jan, 2014 [facility] [place] [facility] [address] [id number] [place] [address]- 5[address] 08 Jan, 2014 [facility] [place] [facility] [address] [id number] [place] [address]- 3100 08 Jan, 2014 [facility] [place] [facility] [address] [id number] [place] [address]- 0755 08 Jan, 2013 [facility] [place] [facility] [address] [id number] [place] [address]- 8491 08 Jan, 2014 [facility] [place] [facility] [address] [id number] [place] [address]- 4950 Dec, [facility] [place] [facility] [address] [id number] [place] [address]- 3037 Dec, [facility] [place] [facility] [address] [id number] [place] [address]- 7972 Dec, [facility] [place] [facility] [address] [id number] [place] [address]- 2203 Dec, [facility] [place] [facility] [address] [id number] [place] [address]- 1749 Nov, [facility] [place] [facility] [address] [id number] [place] [address]- 6116 Nov, [facility] [place] [facility] [address] [id number] [place] [address]- 5281 Nov, [facility] [place] [facility] [address] [id number] [place] [address]- 3121 Nov, [facility] [place] [facility] [address] [id number] [place] [address]- 6612 Nov, [facility] [place] [facility] [address] [id number] [place] [address]- 1192 Nov, [facility] [place] [facility] [address] [id number] [place] [address]- 8638 Nov, [facility] [place] [facility] [address] [id number] [place] [address]- 0134 Nov, [facility] [place] [facility] [address] [id number] [place] [address]- 1172 Nov, [facility] [place] [facility] [address] [id number] [place] [address]- 9646 Nov, [facility] [place] [facility] [address] [id number] [place] [address]- 8391 Oct, [facility] [place] [facility] [address] [id number] [place] [address]- 6941 Oct, [facility] [place] [facility] [address] [id number] [place] [address]- 8497 September, [facility] [place] [facility] [address] [id number] [place] [address]- 5538 September, [facility] [place] [facility] [address] [id number] [place] [address]- 6183 September, [facility] [address] [id number] [place] [address]- 4458 September, [facility] [place] [facility] [address] [id number] [place] [address]- 1386 16 Aug, 2013 [facility] [place] [facility] [address] [id number] [place] [address]- 4518 Aug, [facility] [place] [facility] [address] [id number] [place] [address]- 6847 Aug, [facility] [place] [facility] [address] [id number] [place] [address]- 4669 Jul, [facility] [place] [facility] [address] [id number] [place] [address]- 0517 24 Jul, 2013 [facility] [place] [facility] [address] [id number] [place] [address]- 9249 Jul, [facility] [place] [facility] [address] [id number] [place] [address]- 2216 Jul, [facility] [place] [facility] [address] [id number] [place] [address]- 1534 May, [facility] [place] [facility] [address] [id number] [place] [address]- 9660 May, [facility] [place] [facility] [address] [id number] [place] [address]- 8282 May, [facility] [place] [facility] [address] [id number] [place] [address]- 7784 15 Mar, 2013 [facility] [place] [facility] [address] [id number] [place] [address]- 0189 15 Mar, 2013 [facility] [place] [facility] [address] [id number] [place] [address]- 1129 13 Mar, 2013 [facility] [place] [facility] [address] [id number] [place] [address]- 9944 Mar, [facility] [place] [facility] [address] [id number] [place] [address] 2549 Feb, [facility] [place] [facility] [address] [id number] [place] [address]- 2546 Feb, [facility] [place] [facility] [address] [id number] [place] [address]- 2546 Feb, [facility] [place] [facility] [address] [id number] [place] [address]- 2544 Jan, [facility] [address] [id number] [place] [address]- 6357 Jan, [facility] [place] [facility] [address] [id number] [place] [address]- 2543 Jan, [facility] [address] [id number] [place] [address]- 6635 Dec, [facility] [place] [facility] [address] [id number] [place] [address]- 2933 Dec, [facility] [place] [facility] [address] [id number] [place] [address]- 8271 Dec, [facility] [place] [facility] [address] [id number] [place] [address]- 4553 Dec, [facility] [place] [facility] [address] [id number] [place] [address]- 1172 Nov, [facility] [place] [facility] [address] [id number] [place] [address]- 2545 Oct, [facility] [place] [facility] [address] [id number] [place] [address]- 2540 Oct, [facility] [place] [facility] [address] [id number] [place] [address]- 2436 September, [facility] [place] [facility] [address] [id number] [place] [address]- 2549 September, [facility] [place] [facility] [address] [id number] [place] [address]- 8294 September[facility] [address] [id number] [place] [address]- 1053 30 Aug, 2012 [facility] [address] [id number] [place] [address]- 2046 18 Aug, 2012 [facility] [address] [id number] [place] [address]- 3487 Aug, [facility] [address] [id number] [place] [address]- 0958 Aug, [facility] [address] [id number] [place] [address]- 1974 26 Jul, 2012 [facility] [address] [id number] [place] [address]- 1775 25 Jul, 2012 [facility] [address] [id number] [place] [address]- 8579 Jul, [facility] [address] [id number] [place] [address]- 9978 15 Jul, 2012 [facility] [address] [id number] [place] [address]- 5440 14 Jul, 2012 [facility] [address] [id number] [place] [address]- 4111 Jul, [facility] [address] [id number] [place] [address]- 7318 Jul, [facility] [place] [facility] [address] [id number] [place] [address]- 5637 Jun, [facility] [place] [facility] [address] [id number] [place] [address]- 0241 Jun, [facility] [place] [facility] [address] [id number] [place] 1199 Jun, [facility] [place] [facility] [address] [facility] [id number] [place] [address] Jun, [facility] [place] [facility] [address] [id number] [place] [address]- 9787 May, [facility] [place] [facility] [address] [id number] [place] [address]- 5151 May, [facility] [place] [facility] [address] [id number] [place] [address]- 3039 May, [facility] [place] [facility] [address] [id number] [place] [address]- 1155 May, [facility] [place] [facility] [address] [id number] [place] [address]- 0300 May, [facility] [place] [facility] [address] [id number] [place] [address]- 4173 Apr, [facility] [place] [facility] [address] [id number] [place] [address]- 3149 Apr, [facility] [place] [facility] [address] [id number] [place] [address]- 1874 Mar, [facility] [place] [facility] [address] [id number] [place] [address]- 8918 Mar, [facility] [place] [facility] [address] [id number] [place] [address]- 3093 Mar, [facility] [place] [facility] [address] [id number] [place] [address]- 0911 Mar, [facility] [place] [facility] [address] [id number] [place] [address]- 6820 Mar, [facility] [place] [facility] [address] [id number] [place] [address]- 9362 Mar, [facility] [place] [facility] [address] [id number] [place] 9705 Mar, [facility] [place] [facility] [address] [id number] [place] [address]- 4579 Mar, [facility] [place] [facility] [address] [id number] [place] [address]- 1294 Mar, [facility] [place] [facility] [address] [id number] [place] [address]- 0269 Mar, [facility] [place] [facility] [address] [id number] [place] [address]- 9546 Feb, [facility] [place] [facility] [address] [id number] [place] [address]- 1720 Feb, [facility] [place] [facility] [address] [id number] [place] [address]- 0810 Feb, [facility] [place] [facility] [address] [id number] [place] [address]- 6615 Feb, [facility] [place] [facility] [address] [id number] [place] [address]- 6074 Feb, [facility] [place] [facility] [address] [id number] [place] [address]- 6666 Feb, [facility] [place] [facility] [address] [id number] [place] [address]- 8809 Feb, [facility] [place] [facility] [address] [id number] [place] [address]- 9189 Jan, [facility] [place] [facility] [address] [id number] [place] [address]- 6839 Jan, [facility] [place] [facility] [address] [id number], [place] [address]- 0397 Dec, [facility] [place] [facility] [address] [id number], [place] [address]- 2006 Dec, [facility] [place] [facility] [address] [id number] [place] [address]- 3223 Dec, [facility] [place] [facility] [address] [id number] [place] [address]- 5436 Dec, [facility] [place] [facility] [address] [id number] [place] [address]- 4506 Dec, [facility] [place] [facility] [address] [id number] [place] [address]- 1169 Dec, [facility] [address] [id number] [place] [address]- 0930 Nov, [facility] [place] [facility] [address] [id number] [place] [address]- 9046 Nov, [facility] [address] [id number] [place] [address]- 0606 Nov, [facility] [place] [facility] [address] [id number] [place] [address]- 8833 Nov, [facility] [address] [id number] [place] [address]- 6796 September, [facility] [place] [facility] [address] [id number] [place] [address]- 7846 September, [facility] [address] [id number] [place] [address]- 7359 September, [facility] [address] [id number] [place] [address]- 8805 Jul, [facility] [place] [facility] [address] [id number] [place] [address]- 7743 Jun, [facility] [address] [id number] [place] [address]- 8434 Jun, [facility] [place] [facility] [address] [id number] [place] [address]- 3775 Jun, [facility] [address] [id number] [place] [address]- 7024 Apr, [facility] [place] [facility] [address] [id number] [place] [address]- 2658 Mar, [facility] [place] [facility] [address] [id number] [place] [address] 2546 Mar, [facility] [place] [facility] [address] [id number] [place] [address]- 9490 Feb, [facility] [address] [facility] [id number], [place] [address]- 6369 Feb, [facility] [address] [facility] [id number], [place] [address]- 1451 Feb, [facility] [address] [facility] [id number], [place] [address]- 0927 Jul, [facility] [address] [facility] [id number], [place] [address]- 5084 Feb, IMMUNIZATIONS No Known Immunizations SOCIAL HISTORY Never Assessed REASON FOR VISIT f/u PLAN OF CARE Activity Details Follow Up Not rescheduled Reason:Mood disorder, anxiety, anger VITAL SIGNS MEDICATIONS Medication Instructions Dosage Frequency Start Date End Date Duration Status Methotrexate 2.5 MG Orally 1 time per week 6 Unknown Glucocard Expression Test - as directed 24h Nov, 50 Unknown Potassium Chloride Marie ER 20 MEQ TAKE ONE TABLET BY MOUTH ONCE DAILY WITH FOOD 30 Unknown PredniSONE 20 MG 1 TABLET ONCE A DAY ORALLY 30 DAY(S) 30 Unknown Benzonatate 100 MG TAKE ONE CAPSULE BY MOUTH THREE TIMES DAILY NEEDED 10 Unknown [place] 7.5-325 MG Orally every 6 hrs 1 tablet as needed 6h 14 Jun, 2017 Unknown Folic Acid 1 MG TAKE ONE TABLET BY MOUTH ONCE DAILY (DO NOT TAKE ON DAYS YOU TAKE METHOTREXATE) 30 Unknown Magnesium Oxide 400 mg Orally Once a day 1 tablet as needed 24h 30 day(s) Unknown Lisinopril-Hydrochlorothiazide 20-25 MG TAKE ONE TABLET BY MOUTH ONCE DAILY 30 Unknown Spironolactone 25 MG TAKE ONE TABLET BY MOUTH ONCE DAILY 30 Unknown RESULTS No Results PROCEDURES Procedure Date Ordered Result Body Site Psychotherapy, patient &/family, 30 minutes, established patient September 01, 2017 INSTRUCTIONS MEDICATIONS ADMINISTERED No Known Medications MEDICAL (GENERAL) HISTORY Type Description Date Medical History type II diabetes-dx'd 12/2010 Medical History dysfunctional uterine bleeding--endometrial bx 12/2010 Medical History asthma Medical History hypertension Medical History obesity Medical History anxiety Medical History autoimmune disease Surgical History x1 Hospitalization History child Hospitalization History Asthma
--- OUTSIDE RECORDS SUMMARY | 2018-02-02 23:48 | XMS REPORT ---
Author Author MACY TAMAYO Organization [facility] Address [address] [place] [address] Care Team Providers Care Produce Manager Name Role Phone MACY TAMAYO Unavailable PROBLEMS Type Condition ICD9-CM Code TZG69-IN Code Onset Dates Condition Status SNOMED Code Problem Plantar wart of both feet B07.0 Active [id number] Problem Controlled type 2 diabetes mellitus without complication, without long -term current use of insulin E11.9 Active 552432602 Problem Lumbago with sciatica, left side M54.42 Active 065778222 Problem Lumbago with sciatica, right side M54.41 Active 396368520 Problem Morbid (severe) obesity due to excess calories E66.01 Active 732527391 Problem Body mass index (BMI) of 45.0-49.9 in adult Z68.42 Active 689830065 Problem Tachycardia with heart rate 121-140 beats per minute R00.0 Active 9511342 Problem Dermatomyositis M33.90 Active 986015315 Problem Enlarged thyroid gland E04.9 Active 7167098 Problem Allergic rhinitis due to pollen J30.1 Active 84017007 Problem Mood disorder F39 Active 50739529 Problem Menopause Z78.0 Active 049337051 Problem Anxiety F41.9 Active 34857601 Problem Other chronic pain G89.29 Active 05748219 Problem Diabetes type 2, controlled E11.9 Active 78699705 Problem Arthritis M19.90 Active 8273669 Problem Osteoarthritis of right knee, unspecified osteoarthritis type M17.9 Active 211797797 Problem Plantar warts B07.0 Active 79191985 ALLERGIES No Information ENCOUNTERS Encounter Location Date Diagnosis [facility] [address] [facility] [id number] [address] Dec, [facility] [address] [facility] [id number], [place] [address] Nov, Lumbar radiculopathy M54.16 [facility] [address] [address] Nov, [facility] [address] [place] [id number] [place] [address] 36500- 8456 Nov, Mood disorder F39 [facility] [address] [place] [id number] [place] [address] 37805- 3666 Nov, Lumbago with sciatica, right side M54.41 and Other chronic pain G89.29 [facility] [address] [place] [id number] [place] [address] 12240- 5982 Nov, Acute right ankle pain M25.571 [facility] [address] [place] [id number] [place] [address] 75653- 2746 Nov, [facility] [address] [place] [id number] [place] [address] 87305- 2497 Oct, [facility] [address] [place] [id number] [place] [address] 65094- 8732 Oct, Plantar wart of both feet B07.0 [facility] [address] [place] [id number] [place] [address] 00919- 6819 Oct, [facility] [address] [place] [id number] [place] [address] 53305- 1969 Oct, Acute right ankle pain M25.571 and Plantar wart of both feet B07.0 [facility] [address] [place] [address] 71895- 0488 September, Other chronic pain G89.29 [facility] [address], [place] [address] September, Other chronic pain G89.29 [facility] [address] [place] [address] 31487- 7828 September, Other chronic pain G89.29 [facility] [address] [place] [address] 94627- 5879 Aug, Mood disorder F39 [place] [address] [place] [id number] [place] [address] 70966- 7190 16 Aug, 2017 Other chronic pain G89.29 ; Controlled type 2 diabetes mellitus without complication, without long-term current use of insulin E11.9 ; Low back pain M54.5 and Tinea corporis B35.4 [place] [address] 01714- 4095 Aug, Mood disorder F39 and Anxiety F41.9 [place] [address] 42101- 5568 Aug, Mood disorder F39 and Anxiety F41.9 [place] [address] 40238- 2581 Jul, [facility]ALK IN [place] [address] 22[address] -[address]94 Jul, Scabies B86 and BMI 45.0-49.9, adult Z68.42 [place] [address] 43062- 9851 Jul, [place] [address] 19591- 1242 Jul, Mood disorder F39 and Anxiety F41.9 [place] [address] [place] [id number] [place] [address] 57514- 1641 Jul, [facility] [place] [address] [id number] [place] [address] 79889 -3792 27 Jun, 2017 Bronchitis J40 ; Dark urine R82.99 and BMI 45.0-49.9, adult Z68.42 [place] [address] 69022- 0855 14 Jun, 2017 Acute pain of right shoulder M25.511 and Acute pain of right knee M25.561 [place] [address] 20970- 0159 May, BMI 40.0-44.9, adult Z68.41 ; Controlled type 2 diabetes mellitus without complication, without long-term current use of insulin E11.9 ; Muscle cramping R25.2 ; Hot flashes R23.2 ; Mood disorder F39 ; Anxiety F41.9 and Morbid (severe) obesity due to excess calories E66.01 [address] [place] [address] 82252- 1571 May, BMI 40.0-44.9, adult Z68.41 ; Controlled type 2 diabetes mellitus without complication, without long-term current use of insulin E11.9 ; Muscle cramping R25.2 and Hot flashes R23.2 [place] [id number] [place] [address] 11925- 0273 May, Tachycardia with heart rate 121-140 beats per minute R00.0 ; Morbid (severe) obesity due to excess calories E66.01 ; Diabetes type 2, controlled E11.9 and Enlarged thyroid gland E04.9 [place] [id number] [place] [address] 95341- 6707 25 May, 2017 Encounter for well woman [...] Dysuria R30.0 and Screening breast examination Z12.31 [address] [place] [address] 19510- 6429 Apr, Mood disorder F39 ; Other chronic pain G89.29 and Anxiety F41.9 [place] [id number] [place] [address] 04766- 6585 Apr, Lumbago with sciatica, left side M54.42 and Other chronic pain G89.29 [place] [id number] [place] [address] 29582- 8989 Apr, Lupus erythematosus L93.0 [facility] [address] [place] [id number] [place] [address] 45027- 0739 Mar, Plantar wart of both feet B07.0 [facility] [address] [place] [id number] [place] [address] 74084- 3052 Mar, Lupus erythematosus L93.0 and Sinus drainage J34.89 [facility] [address] [place] [id number] [place] [address] 20858- 8307 Mar, Mood disorder F39 ; Other chronic pain G89.29 and Anxiety F41.9 [facility] [address] 79682- 0430 Mar, Mood disorder F39 ; Arthritis M19.90 and Plantar warts B07.0 [facility] [address] [place] [id number] [place] [address] 22943- 4383 Feb, Lupus erythematosus L93.0 [facility] [address] [place] [id number] [place] [address] 54538- 5070 Feb, Other chronic pain G89.29 [facility] [address] [place] [id number] [place] [address] 38156- 9674 Feb, Mood disorder F39 and Anxiety F41.9 [facility] [address] [place] [id number] [place] [address] 00360- 0544 Jan, [facility] [address] [place] [id number] [place] [address] 12631- 9889 Jan, Mood disorder F39 [facility] [address] [place] [id number] [place] [address] 02193- 8405 Dec, Nail, ingrown L60.0 [facility] [address] [place] [id number] [place] [address] 24377- 7898 Dec, Nail, ingrown L60.0 [facility] [address] [place] [id number] [place] [address] 64733- 3046 Nov, Mood disorder F39 and Anxiety F41.9 [facility] [address] [place] [id number] [place] [address] 63145- 6871 Nov, Sinus drainage J34.89 ; Hot flashes R23.2 ; Anxiety F41.9 and Diabetes type 2, controlled E11.9 [facility] [address] [place] [id number] [place] [address] 60047- 3601 Nov, Nail, ingrown L60.0 [facility] [address] [place] [id number] [place] [address] 06681- 5728 Oct, Anxiety F41.9 and Mood disorder F39 [facility] [address] [place] [id number] [place] [address] 20262- 2124 Oct, Nail, ingrown L60.0 and Anxiety F41.9 [facility] [address] [place] [id number] [place] [address] 57575- 1526 Oct, Lupus erythematosus L93.0 [facility] [address] [place] [id number] [place] [address] 71015- 1362 September, [facility] [address] [place] [id number] [place] [address] 85633- 9563 September, [facility] [address] [place] [id number] [place] [address] 46540- 5066 September, Lupus erythematosus L93.0 [facility] [address] [place] [id number] [place] [address] 18332- 2276 Aug, [facility] [address] [place] [id number] [place] [address] 90448- 5912 Aug, Mood disorder F39 and Anxiety F41.9 [facility] [address] [place] [id number] [place] [address] 27837- 9940 Aug, Lupus erythematosus L93.0 ; Diabetes type 2, controlled E11.9 and Localized edema R60.0 [facility] [address] [place] [id number] [place] [address] 20592- 7060 05 Aug, 2016 [place] [address] [place] [address] 31516- 8929 Jul, Anxiety F41.9 and Mood disorder F39 [place] [address] [place] [id number] [place] [address] 11093- 9913 10 Jul, 2016 Diabetes type 2, controlled E11.9 [place] [address] 66659- 5844 Jun, Anxiety F41.9 [place] [address] [place] [id number] [place] [address] 57482- 6559 May, [place] [address] [place] [id number] [place] [address] 83949- 6559 May, [place] [address] [place] [id number] [place] [address] 75168- 0846 May, Nausea R11.0 ; Other chronic pain G89.29 and Pain in right knee M25.561 [place] [address] [place] [id number] [place] [address] 85340- 1971 May, [place] [address] [place] [id number] [place] [address] 38440- 0518 Apr, Tear of medial meniscus of right knee, current, unspecified tear type, subsequent encounter S83.241D and Tear of lateral meniscus of right knee, current, unspecified tear type, subsequent encounter S83.281D [place] [address] [place] [address] 72019- 0694 Apr, Anxiety F41.9 and Mood disorder F39 [place] [address] [place] [id number] [place] [address] 37852- 4181 Apr, Anxiety F41.9 [place] [address] [place] [id number] [place] [address] 63919- 2078 Apr, [place] [address] [place] [id number] [place] [address] 18108- 8148 Mar, [facility] [address] [place] [id number] [place] [address] 43435- 4192 Mar, Lupus erythematosus L93.0 and Diabetes type 2, controlled E11.9 [facility] [address] [place] [id number] [place] [address] 96638- 5867 Mar, Mood disorder F39 [facility] [address] 34849- 5417 Mar, Tear of lateral meniscus of right knee, current, unspecified tear type, initial encounter S83.281A and Osteoarthritis of right knee, unspecified osteoarthritis type M17.9 [facility] [address] 12851- 2045 Mar, [facility] [address] [place] [id number] [place] [address] 32208- 4087 Feb, Mood disorder F39 [facility] [address] 89425- 7097 Feb, Rash R21 [facility] [address] [place] [id number] [place] [address] 01199- 6983 Feb, [facility] [address] [place] [id number] [place] [address] 18758- 7015 Jan, Other chronic pain G89.29 and Muscle spasm M62.838 [facility] [address] [place] [id number] [place] [address] 62469- 9403 Jan, Mood disorder F39 [facility] [address] [place] [id number] [place] [address] 69463- 1428 Jan, Pain in right knee M25.561 ; Other chronic pain G89.29 and Muscle spasm M62.838 [facility] [address] [place] [id number] [place] [address] 67348- 7538 Dec, [facility] [address] [place] [id number] [place] [address] 61912- 8947 Dec, [facility] [address], [place] [address]- 4404 Nov, [place] [address] [place] [id number] [place] [address] 17295- 8931 Nov, Mood disorder F39 [place] [address] [place] [id number] [place] [address] 08517- 9742 Nov, Diabetes type 2, controlled E11.9 ; Bronchitis J40 ; Edema, unspecified type R60.9 ; Weight gain R63.5 and Right knee pain, unspecified chronicity M25.561 [place] [address] [place] [id number] [place] [address] 77598- 7607 Oct, Mood disorder F39 [place] [address] [place] [id number] [place] [address] 93879- 6767 Oct, Lupus erythematosus L93.0 and Bilateral edema of lower extremity R60.0 [place] [address] [place] [id number] [place] [address] 70759- 1979 Oct, Mood disorder F39 and Anxiety F41.9 [place] [address] [place] [id number] [place] [address] 68343- 8532 September, Mood disorder F39 ; Anxiety F41.9 and Anger reaction R45.4 [place] [address] [place] [id number] [place] [address] 72659- 3315 September, Diabetes type 2, controlled E11.9 ; Edema, unspecified type R60.9 and Fatigue, unspecified type R53.83 [place] [address] [place] [address] 01848- 9623 Aug, Mood disorder F39 and Generalized anxiety disorder F41.1 [place] [address] [place] [id number] [place] [address] 38583- 0458 Aug, Diabetes type 2, controlled E11.9 ; Sinusitis J32.9 and Mood disorder F39 [place] [address] [place] [id number] [place] [address] 13092- 3543 Aug, Lupus erythematosus L93.0 [facility] [address] [address]- 1906 14 Aug, 2015 [facility] [address] [place] [id number] [place] [address] 20723- 5656 07 Aug, 2015 [facility] [address] [place] [id number] [place] [address] 29091- 2416 Jul, Diabetes type 2, controlled E11.9 [facility] [address] [place] [id number] [place] [address] 05038- 9996 Jul, Mood disorder F39 and Depression F32.9 [facility] [address] [place] [id number] [place] [address] 62750- 1645 Jul, Lupus erythematosus L93.0 and Diabetes type 2, controlled E11.9 [facility] [address] [place] [id number] [place] [address] 14904- 6823 Jul, Mood disorder F39 and Anxiety F41.9 [facility] [address] [place] [id number] [place] [address] 69741- 6753 Jul, [facility] [address] [place] [id number] [place] [address] 63828- 2862 Jul, [facility] [address] [place] [id number] [place] [address] 47543- 9635 Jun, Mood disorder F39 and Anxiety F41.9 [facility] [address] [place] [id number] [place] [address] 46742- 5657 Jun, Mood disorder F39 [facility] [address] [place] [address] 43479- 3380 18 Jun, 2015 [facility] [address] [place] [id number] [place] [address] 84217- 7959 15 Jun, 2015 [facility] [address] [place] [address] 17293- 0359 08 Jun, 2015 Mood disorder F39 [facility] [address] [id number] [address]- 8152 Jun, [facility] [address] [place] [id number] [place] [address] 62604- 5246 May, [facility] [address] [place] [id number] [place] [address] 52606- 4664 May, [facility] [address] [place] [id number] [place] [address] 70018- 2397 May, [facility] [address] [place] [id number] [place] [address] 32451- 8053 May, [facility] [address] [place] [id number] [place] [address] 82652- 8534 May, Anxiety F41.9 ; Dermatomyositis M33.90 and Diabetes type 2, controlled E11.9 [facility] [address] [place] [address] 38153 -2797 May, Sinusitis J32.9 and Cough R05 [facility] [address] [place] [id number] [place] [address] 07493- 8674 May, Mood disorder F39 [facility] [address] [place] [id number] [place] [address] 45551- 8151 May, Adjustment disorder with mixed anxiety and depressed mood F43.23 [facility] [address] [address]- 5678 Apr, [facility] [address] [place] [id number] [place] [address] 93151- 6026 Apr, [facility] [address] [place] [address] 65030- 1618 Apr, Generalized anxiety disorder F41.1 and Mood disorder F39 [facility] [address] [place] [address] 21674- 9308 Mar, [facility] [address] [place] [address] 07943- 5291 Mar, [facility] [address] [place] [id number] [place] [address] 06811- 8042 Mar, [facility] [address] [place] [id number] [place] [address] 42427- 2415 Mar, Mood disorder F39 [facility] [address] [place] [id number] [place] [address] 37670- 0767 Feb, [facility] [address] 32425- 7154 Feb, Diabetes E11.9 and Bronchitis J40 [facility] [address] [place] [id number] [place] [address] 86455- 9897 Feb, [facility] [address] [place] [id number] [place] [address] 35472- 6544 Feb, [facility] [address] [place] [id number] [place] [address] 30318- 9684 Feb, Major depression, recurrent, full remission F33.42 and KELLY ( generalized anxiety disorder) F41.1 [facility] [address] [place] [id number] [place] [address] 40471- 3361 Feb, [facility] [address] [place] [id number] [place] [address] 63538- 6041 Feb, Single major depressive episode, in partial or unspecified remission F32.5 [facility] [address] [place] [id number] [place] [address] 06593- 6204 Jan, Fatigue 780.79 [facility] [address] [place] [id number] [place] [address] 60356- 0964 Jan, [facility] [address] [place] [id number] [place] [address] 42567- 3015 Jan, Diabetes with other specified manifestations, type II or unspecified type, not stated as uncontrolled 250.80 [facility] [address] [place] [id number] [place] [address] 54043- 4775 Jan, [facility] [address] [place] [id number] [place] [address] 97817- 9760 Dec, Hot flashes 627.2 ; Memory loss 780.93 and Joint pain 719.40 [place] [id number] [place] [address] 98970- 8709 Dec, Major depression, recurrent 296.30 ; Generalized anxiety disorder 300.02 ; Adjustment disorder with depressed mood 309.0 and No condition on [place] II V71.09 [place] [id number] [place] [address] 62038- 6646 Dec, [place] [id number] [place] [address] 17090- 4999 Nov, Cognitive and neurobehavioral dysfunction 294.9 ; Major depressive disorder, recurrent episode, moderate degree 296.32 and Anxiety state , unspecified 300.00 [place] [id number] [place] [address] 08274- 9870 Nov, [place] [id number] [place] [address] 52401- 4030 Nov, Diabetes with other specified manifestations, type II or unspecified type, not stated as uncontrolled 250.80 and Bronchitis [address] [place] [id number] [place] [address] 09689- 5486 Nov, Major depressive disorder, recurrent episode, moderate 296.32 and Anxiety disorder, unspecified 300.[address] [place] [address] 73089- 2312 Nov, Anxiety, generalized 300.02 ; Intermittent explosive disorder 312.34 ; No condition on [place] II V71.09 and No condition on axis III V71.09 [place] [id number] [place] [address] 18457- 7677 Oct, Diabetes with other specified manifestations, type II or unspecified type, not stated as uncontrolled 250.80 ; Urinary tract infection, site not specified 599.0 and Bronchitis [id number] [place] [address] 81894- 4813 Oct, Intermittent explosive disorder 312.34 ; Bipolar 1 disorder , depressed, moderate 296.52 ; Major depression, chronic 296.20 ; No condition on [place] II V71.09 and No condition on axis III V71.09 [place] [id number] [place] [address] [id number] Oct, Major depressive disorder, recurrent episode, moderate 296.32 ; Anxiety state 300.00 ; Cognitive decline 294.9 and No condition on [place] II V71.09 [place] [address] [id number] [place] [address] 22614- 8071 Oct, [place] [id number] [place] [address] 70256- 5641 Oct, Major depressive disorder, recurrent episode, moderate 296.32 ; Anxiety disorder, unspecified 300.00 and Persistent disorder of initiating or maintaining sleep 307.42 [place] [id number] [place] [address] 70509- 9206 September, Diabetes with other specified manifestations, type II or unspecified type, not stated as uncontrolled 250.80 ; Memory loss 780.93 and Cognitive complaints 799.59 [place] [id number] [place] [address] 74238- 3727 September, No condition on [place] II V71.09 ; Major depression, recurrent 296.30 and Persistent mood [affective] disorder, unspecified 296.90 [id number] [address] Aug, [place] [id number] [place] [address] 63109- 9420 Aug, [place] [id number] [place] [address] [id number]- 0444 Aug, [place] [id number] [place] [address] [id number] Jul, [place] [id number] [place] [address] [id number] Jul, [place] [id number] [address] 04 Jul, 2014 [facility] [place] [facility] [address] [id number] [place] [address] Jul, 2014 [facility] [place] [facility] [address] [id number] [place] [address]- 3513 Jul, 2014 [facility] [place] [facility] [address] [facility] [id number] [place] [address]- [address] Jun, 2014 [facility] [place] [facility] [address] [id number] [place] [address] 9561 Jun, 2014 [facility] [place] [facility] [address] [facility] [id number] [place] [address]- 6113 Jun, 2014 [facility] [place] [facility] [address] [facility] [id number] [place] [address]- 2636 Jun, 2014 [facility] [place] [facility] [address] [facility] [id number] [place] [address]- 4152 Jun, 2014 [facility] [place] [facility] [address] [facility] [id number] [place] [address]- 0374 Jun, 2014 [facility] [place] [facility] [address] [facility] [id number] [place] [address] Jun, 2014 [facility] [place] [facility] [address] [facility] [id number], [place] [address] Jun, 2014 [facility] [place] [facility] [address] [facility] [id number], [place] [address] Jun, 2014 [facility] [place] [facility] [address] [facility] [id number] [place] [address] 1489 Jun, 2014 [facility] [place] [facility] [address] [facility] [id number] [place] [address] 7618 Jun, 2014 [facility] [place] [facility] [address] [facility] [id number], [place] [address] Jun, 2014 [facility] [place] [facility] [address] [facility] [id number], [place] [address] Jun, [facility] [address] [id number] [place] [address] 44[address] May, [facility] [place] [facility] [address] [id number] [place] [address] 0287 May, [facility] [address] [facility] [id number] [place] [address]- 0942 Apr, [facility] [place] [facility] [address] [id number] [place] [address] 5[address] Apr, [facility] [place] [facility] [address] [id number] [place] [address]- 8556 Apr, [facility] [place] [facility] [address] [id number] [place] [address]- 8949 Apr, [facility] [address] [id number] [place] [address]- 8698 Apr, [facility] [place] [facility] [address] [id number] [place] [address]- 5504 Apr, [facility] [place] [facility] [address] [id number] [place] [address]- 9856 Apr, [facility] [place] [facility] [address] [id number] [place] [address]- 5962 Apr, [facility] [place] [facility] [address] [id number] [place] [address]- 2573 Apr, [facility] [place] [facility] [address] [id number] [place] [address]- 4825 Apr, [facility] [place] [facility] [address] [id number] [place] [address]- 3948 Apr, [facility] [place] [facility] [address] [id number] [place] [address]- 8195 Apr, [facility] [place] [facility] [address] [facility] [id number] [place] [address]- 7846 Apr, [facility] [place] [facility] [address] [id number] [place] [address]- 3180 Apr, [facility] [place] [facility] [address] [id number] [place] [address] Apr, [facility] [place] [facility] [address] [id number] [place] [address]- 2936 Apr, [facility] [place] [facility] [address] [id number] [place] [address]- 3695 Apr, [facility] [place] [facility] [address] [id number] [place] [address]- 3706 Apr, [facility] [place] [facility] [address] [id number] [place] [address]- 3152 Apr, [facility] [place] [facility] [address] [id number] [place] [address]- 9298 Apr, [facility] [place] [facility] [address] [id number] [place] [address]- 5602 Mar, [facility] [place] [facility] [address] [id number] [place] [address]- 4959 Mar, [facility] [place] [facility] [address] [id number] [place] [address]- 4025 Mar, [facility] [place] [facility] [address] [id number] [place] [address]- 8626 Mar, [facility] [place] [facility] [address] [id number] [place] [address]- 0576 Mar, [facility] [place] [facility] [address] [id number] [place] [address]- 5315 Mar, [facility] [place] [facility] [address] [id number] [place] [address]- 2460 Mar, [facility] [place] [facility] [address] [id number] [place] [address]- 0522 Mar, [facility] [place] [facility] [address] [id number] [place] [address] 2772 Mar, [facility] [place] [facility] [address] [id number] [place] [address]- 7511 Mar, [facility] [place] [facility] [address] [id number] [place] [address]- 0271 Mar, [facility] [place] [facility] [address] [id number] [place] [address]- 2958 Mar, [facility] [place] [facility] [address] [id number] [place] [address]- 6388 Mar, [facility] [place] [facility] [address] [id number] [place] [address]- 4483 Feb, [facility] [place] [facility] [address] [id number] [place] [address]- 6301 Feb, [facility] [place] [facility] [address] [id number] [place] [address]- 1093 Feb, [facility] [place] [facility] [address] [id number] [place] [address]- 3775 Feb, [facility] [place] [facility] [address] [id number] [place] [address]- 7969 Feb, [facility] [place] [facility] [address] [id number] [place] [address]- 1081 Feb, [facility] [place] [facility] [address] [id number], [place] [address]- 0173 Feb, [facility] [place] [facility] [address] [id number], [place] [address]- 295[address] Feb, [facility] [place] [facility] [address] [id number] [place] [address]- 7995 Feb, [facility] [place] [facility] [address] [id number], [place] [address]- 2486 Feb, [facility] [place] [facility] [address] [id number], [place] [address]- 3499 Feb, [facility] [place] [facility] [address] [id number] [place] [address]- 1093 10 Feb, 2014 [facility] [place] [facility] [address] [id number] [place] [address]- 7969 10 Feb, 2014 [facility] [place] [facility] [address] [id number] [place] [address]- 6366 Feb, [facility] [place] [facility] [address] [id number] [place] [address]- 5311 07 Feb, 2014 [facility] [place] [facility] [address] [id number] [place] [address]- 8058 10 Jan, 2013 [facility] [place] [facility] [address] [id number] [place] [address]- 7255 08 Jan, 2014 [facility] [place] [facility] [address] [id number] [place] [address]- 9498 Jan, [facility] [place] [facility] [address] [id number] [place] [address]- 4530 Jan, 2013 [facility] [place] [facility] [address] [id number] [place] [address]- 1018 Jan, [facility] [place] [facility] [address] [id number] [place] [address]- 2331 Dec, [facility] [place] [facility] [address] [id number] [place] [address]- 5957 Dec, [facility] [place] [facility] [address] [id number] [place] [address]- 4501 Dec, [facility] [place] [facility] [address] [id number] [place] [address]- 9864 Dec, [facility] [place] [facility] [address] [id number] [place] [address]- 9912 Nov, [facility] [place] [facility] [address] [id number] [place] [address]- 7130 Nov, [facility] [place] [facility] [address] [id number] [place] [address]- 5412 Nov, [facility] [place] [facility] [address] [id number] [place] [address]- 2747 Nov, [facility] [place] [facility] [address] [id number] [place] [address]- 9714 Nov, [facility] [place] [facility] [address] [id number] [place] [address]- 3192 Nov, [facility] [place] [facility] [address] [id number] [place] [address]- 8561 Nov, [facility] [place] [facility] [address] [id number] [place] [address]- 6661 Nov, [facility] [place] [facility] [address] [id number] [place] [address]- 9973 Nov, [facility] [place] [facility] [address] [id number] [place] [address]- 3388 Nov, [facility] [place] [facility] [address] [id number] [place] [address]- 4911 Oct, [facility] [place] [facility] [address] [id number] [place] [address]- 2131 Oct, [facility] [place] [facility] [address] [id number] [place] [address]- 9699 September, [facility] [place] [facility] [address] [id number] [place] [address]- 1686 September, [facility] [place] [facility] [address] [id number] [place] [address]- 8322 September, [facility] [place] [facility] [address] [id number] [place] [address]- 1500 September, [facility] [place] [facility] [address] [id number] [place] [address]- 2996 16 Aug, 2013 [facility] [place] [facility] [address] [id number] [place] [address]- 9599 14 Aug, 2013 [facility] [place] [facility] [address] [id number] [place] [address]- 3189 14 Aug, 2013 [facility] [place] [facility] [address] [id number] [place] [address]- 4447 24 Jul, 2013 [facility] [place] [facility] [address] [id number] [place] [address]- 4137 24 Jul, 2013 [facility] [place] [facility] [address] [id number] [place] [address]- 5911 14 Jul, 2013 [facility] [place] [facility] [address] [id number] [place] [address]- 4770 14 Jul, 2013 [facility] [place] [facility] [address] [id number] [place] [address]- 7954 May, [facility] [place] [facility] [address] [id number] [place] [address]- 0989 May, [facility] [place] [facility] [address] [id number] [place] [address]- 9160 May, [facility] [place] [facility] [address] [id number] [place] [address]- 6422 15 Mar, 2013 [facility] [place] [facility] [address] [id number] [place] [address]- 2871 15 Mar, 2013 [facility] [place] [facility] [address] [id number] [place] [address]- 3953 Mar, [facility] [place] [facility] [address] [id number], [place] [address]- 1991 Mar, [facility] [place] [facility] [address] [id number], [place] [address]- 5802 16 Feb, 2013 [facility] [place] [facility] [address] [id number] [place] [address] 16 Feb, 2013 [facility] [place] [facility] [address] [id number] [place] [address] 04 Feb, 2013 [facility] [place] [facility] [address] [id number] [place] 16 Jan, 2013 [facility] [place] [facility] [address] [id number] [place] [address]- 5287 Jan, [facility] [address] [id number] [place] [address]- 2107 Jan, [facility] [address] [id number] [place] [address]- 4148 Dec, [facility] [address] [id number] [place] [address]- 8894 Dec, [facility] [address] [id number] [place] [address]- 2359 Dec, [facility] [address] [id number] [place] [address]- 6363 Dec, [facility] [address] [id number] [place] [address]- 6137 Nov, [facility] [address] [id number] [place] [address]- 3810 Oct, [facility] [address] [id number] [place] [address]- 6813 Oct, [facility] [address] [id number] [place] [address]- 6003 September, [facility] [address] [id number] [place] [address]- 4674 September, [facility] [address] [id number] [place] [address]- 8936 September, [facility] [address] [id number] [place] [address]- 4094 Aug, [facility] [place] [facility] [address] [id number] [place] [address]- 8556 Aug, [facility] [address] [id number] [place] [address]- 8166 Aug, [facility] [address] [id number] [place] [address]- 4224 Aug, [facility] [address] [id number] [place] [address]- 3172 Jul, [facility] [place] [facility] [address] [id number] [place] [address]- 6186 25 Jul, 2012 [facility] [address] [id number] [place] [address]- 2116 21 Jul, 2012 [facility] [place] [facility] [address] [id number] [place] [address]- 7068 15 Jul, 2012 [facility] [address] [id number] [place] [address]- 2738 14 Jul, 2012 [facility] [address] [id number] [place] [address]- 5705 Jul, [facility] [address] [id number] [place] [address]- 3131 Jul, [facility] [address] [id number] [place] [address]- 4249 Jun, [facility] [address] [id number] [place] [address]- 2333 Jun, [facility] [address] [id number] [place] [address]- 9200 Jun, [facility] [place] [facility] [address] [id number] [place] [address]- 9289 Jun, [facility] [place] [facility] [address] [id number] [place] [address]- 4275 May, [facility] [place] [facility] [address] [id number] [place] [address]- 2269 May, [facility] [place] [facility] [address] [id number] [place] [address]- 8165 May, [facility] [place] [facility] [address] [id number] [place] [address]- 9332 May, [facility] [place] [facility] [address] [id number] [place] [address]- 9990 May, [facility] [place] [facility] [address] [id number] [place] [address]- 1072 Apr, [facility] [place] [facility] [address] [id number] [place] [address]- 3237 Apr, [facility] [place] [facility] [address] [id number] [place] [address]- 3556 Mar, [facility] [place] [facility] [address] [id number] [place] [address]- 6296 Mar, [facility] [place] [facility] [address] [id number] [place] [address]- 0875 Mar, [facility] [place] [facility] [address] [id number] [place] [address]- 9662 Mar, [facility] [place] [facility] [address] [facility] [id number] [place] [address]- 6576 Mar, [facility] [place] [facility] [address] [id number] [place] [address]- 2668 Mar, [facility] [place] [facility] [address] [id number] [place] [address]- 6119 Mar, [facility] [place] [facility] [address] [facility] [id number] [place] [address]- 9774 Mar, [facility] [place] [facility] [address] [id number] [place] [address]- 0609 Mar, [facility] [place] [facility] [address] [id number], [place] [address]- 6121 Mar, [facility] [place] [facility] [address] [id number] [place] [address]- 2823 Feb, [facility] [place] [facility] [address] [id number] [place] [address]- 9155 Feb, [facility] [place] [facility] [address] [id number], [place] [address]- 6330 Feb, [facility] [place] [facility] [address] [id number] [place] [address]- 3989 Feb, [facility] [place] [facility] [address] [id number] [place] [address]- 6447 Feb, [facility] [place] [facility] [address] [id number] [place] [address]- 5161 Feb, [facility] [place] [facility] [address] [id number] [place] [address]- 1138 Feb, [facility] [place] [facility] [address] [id number] [place] [address]- 5416 Jan, [facility] [place] [facility] [address] [id number] [place] [address]- 2160 Jan, [facility] [place] [facility] [address] [id number] [place] [address]- 1986 Dec, [facility] [place] [facility] [address] [id number] [place] [address]- 1467 Dec, [facility] [place] [facility] [address] [id number] [place] [address]- 0336 Dec, [facility] [place] [facility] [address] [id number] [place] [address]- 4897 Dec, [facility] [place] [facility] [address] [id number] [place] [address]- 4039 Dec, [facility] [place] [facility] [address] [id number] [place] [address]- 5389 Dec, [facility] [place] [facility] [address] [id number] [place] [address]- 8586 Nov, [facility] [place] [facility] [address] [id number] [place] [address]- 7788 Nov, [facility] [place] [facility] [address] [id number] [place] [address]- 1333 Nov, [facility] [place] [facility] [address] [id number], [place] [address]- [address] Nov, [facility] [address] [facility] [id number] [place] [address] 7996 September, [facility] [address] [facility] [id number], [place] [address] September, [facility] [address] [facility] [id number] [place] [address] 2546 September, [facility] [address] [facility] [id number], [place] [address]- 3966 Jul, [facility] [address] [facility] [id number] [place] [address]- 4356 Jun, [facility] [address] [facility] [id number] [place] [address]- 8436 Jun, [facility] [id number], [place] [address] Jun, [facility] [address] [id number], [place] [address]- 4507 Apr, [facility] [address] [id number], [place] [address]- [address]290 Mar, [facility] [address] [id number] [address]- 0796 Mar, [facility] [address] [id number] [address] Feb, [facility] [address] [facility] [id number], [place] [address]- 1747 Feb, [facility] [address] [id number], [place] [address]- 0689 [address], [address] [facility] [address] [facility] [id number], [place] [address]- [address]356 10 Jul, 2009 [facility] [address] [id number], [place] [address]- 6816 Feb, IMMUNIZATIONS No Known Immunizations SOCIAL HISTORY Never Assessed REASON FOR VISIT medication requests PLAN OF CARE VITAL SIGNS MEDICATIONS Unknown [...]
--- OUTSIDE RECORDS SUMMARY | 2018-02-02 23:49 | XMS REPORT ---
Author Author ROSANA Scott Organization [facility] [place] Address [address] [place] [address] Care Team Providers Care Domestic Travel Consultant Name Role Phone ROSANA Scott Unavailable PROBLEMS Type Condition ICD9-CM Code DEU43-PX Code Onset Dates Condition Status SNOMED Code Problem Plantar wart of both feet B07.0 Active [id number] Problem Controlled type 2 diabetes mellitus without complication, without long -term current use of insulin E11.9 Active 136893883 Problem Lumbago with sciatica, left side M54.42 Active 668855279 Problem Lumbago with sciatica, right side M54.41 Active 287311815 Problem Morbid (severe) obesity due to excess calories E66.01 Active 278994802 Problem Body mass index (BMI) of 45.0-49.9 in adult Z68.42 Active 639819758 Problem Tachycardia with heart rate 121-140 beats per minute R00.0 Active 8724366 Problem Dermatomyositis M33.90 Active 537218506 Problem Enlarged thyroid gland E04.9 Active 8806489 Problem Allergic rhinitis due to pollen J30.1 Active 11252350 Problem Mood disorder F39 Active 29637806 Problem Menopause Z78.0 Active 755868071 Problem Anxiety F41.9 Active 47244700 Problem Other chronic pain G89.29 Active 29169112 Problem Diabetes type 2, controlled E11.9 Active 29456861 Problem Arthritis M19.90 Active 4356047 Problem Osteoarthritis of right knee, unspecified osteoarthritis type M17.9 Active 623717902 Problem Plantar warts B07.0 Active 74825852 ALLERGIES Substance Reaction Event Type Date Status Fluarix Quadrivalent vomiting Drug Allergy Jul, Active Zoloft makes very angry Drug Allergy Jul, Active Fluarix vomiting Drug Allergy Jul, Active Aspirin rash Drug Allergy Jul, Active Latex, Natural Rubber rash Non Drug Allergy Jul, Active ENCOUNTERS Encounter Location Date Diagnosis [facility] [place] [id number], [place] [address] Dec, [facility] [place] [id number] [place] [address] 06739- 7767 Nov, [facility] [place] [id number] [address] 2206 Nov, [facility] [place] [id number] [place] [address] 54003- 5588 Nov, Mood disorder F39 [facility] [place] [id number] [place] [address] 01248- 8105 Nov, Lumbago with sciatica, right side M54.41 and Other chronic pain G89.29 [facility] [place] [id number] [place] [address] 62250- 6461 Nov, Acute right ankle pain M25.571 [facility] [place] [id number] [place] [address] 69333- 1080 Nov, [facility] [place] [id number] [place] [address] 79867- 7542 Oct, [facility] [place] [id number] [place] [address] 46505- 6950 Oct, Plantar wart of both feet B07.0 [facility] [place] [address] [address] 5277 Oct, [facility] [place] [id number] [place] [address] 38725- 1114 Oct, Acute right ankle pain M25.571 and Plantar wart of both feet B07.0 [facility] [place] [id number] [place] [address] 54576- 0294 September, Other chronic pain G89.29 [facility] [place] [address], [place] [address] 4962 September, Other chronic pain G89.29 [place] [address] 28535- 8983 September, Other chronic pain G89.29 [place] [address] 20404- 6218 Aug, Mood disorder F39 [place] [address] 37603- 8300 Aug, Other chronic pain G89.29 ; Controlled type 2 diabetes mellitus without complication, without long-term current use of insulin E11.9 ; Low back pain M54.5 and Tinea corporis B35.4 [place] [address] 61887- 9185 Aug, Mood disorder F39 and Anxiety F41.9 [place] [address] 09897- 9405 Aug, Mood disorder F39 and Anxiety F41.9 [place] [address] 72287- 1113 Jul, [facility] [address] 20[address] -0332 Jul, Scabies B86 and BMI 45.0-49.9, adult Z68.42 [place] [address] 10440- 5171 Jul, [place] [address] 09665- 6164 Jul, Mood disorder F39 and Anxiety F41.9 [place] [address] 37163- 5818 Jul, [facility] [address] 52838 -0346 Jun, Bronchitis J40 ; Dark urine R82.99 and BMI 45.0-49.9, adult Z68.42 [place] [address] 06889- 2298 14 Jun, 2017 Acute pain of right shoulder M25.511 and Acute pain of right knee M25.561 [place] [id number] [place] [address] 42257- 8504 May, BMI 40.0-44.9, adult Z68.41 ; Controlled type 2 diabetes mellitus without complication, without long-term current use of insulin E11.9 ; Muscle cramping R25.2 ; Hot flashes R23.2 ; Mood disorder F39 ; Anxiety F41.9 and Morbid (severe) obesity due to excess calories E66.01 [place] [id number] [place] [address] 39715- 5946 May, BMI 40.0-44.9, adult Z68.41 ; Controlled type 2 diabetes mellitus without complication, without long-term current use of insulin E11.9 ; Muscle cramping R25.2 and Hot flashes R23.2 [place] [id number] [place] [address] 95947- 7228 May, Tachycardia with heart rate 121-140 beats per minute R00.0 ; Morbid (severe) obesity due to excess calories E66.01 ; Diabetes type 2, controlled E11.9 and Enlarged thyroid gland E04.9 [place] [id number] [place] [address] 72001- 5358 25 May, 2017 Encounter for well woman [...] Dysuria R30.0 and Screening breast examination Z12.31 [place] [id number] [place] [address] 60663- 4107 Apr, Mood disorder F39 ; Other chronic pain G89.29 and Anxiety F41.9 [facility] [place] [id number] [place] [address] 08305- 8830 Apr, Lumbago with sciatica, left side M54.42 and Other chronic pain G89.29 [facility] [place] [id number] [place] [address] 65221- 0785 Apr, Lupus erythematosus L93.0 [facility] [place] [id number] [place] [address] 08504- 2776 Mar, Plantar wart of both feet B07.0 [facility] [place] [id number] [place] [address] 59831- 3437 Mar, Lupus erythematosus L93.0 and Sinus drainage J34.89 [facility] [place] [id number] [place] [address] 33938- 7280 Mar, Mood disorder F39 ; Other chronic pain G89.29 and Anxiety F41.9 [facility] [place] [address] 92567- 2242 Mar, Mood disorder F39 ; Arthritis M19.90 and Plantar warts B07.0 [facility] [place] [address] 81085- 5439 Feb, Lupus erythematosus L93.0 [facility] [place] [id number] [place] [address] 16489- 7997 Feb, Other chronic pain G89.29 [facility] [place] [id number] [place] [address] 18564- 9089 Feb, Mood disorder F39 and Anxiety F41.9 [facility] [place] [id number] [place] [address] 05723- 2121 Jan, [facility] [place] [id number] [place] [address] 48460- 5463 Jan, Mood disorder F39 [facility] [place] [id number] [place] [address] 24347- 3638 Dec, Nail, ingrown L60.0 [facility] [place] [id number] [place] [address] 05398- 5200 Dec, Nail, ingrown L60.0 [facility] [place] [id number] [place] [address] 30016- 0053 Nov, Mood disorder F39 and Anxiety F41.9 [facility] [place] [address] 70667- 8392 Nov, Sinus drainage J34.89 ; Hot flashes R23.2 ; Anxiety F41.9 and Diabetes type 2, controlled E11.9 [facility] [place] [id number] [place] [address] 51606- 3480 Nov, Nail, ingrown L60.0 [facility] [place] [id number] [place] [address] 09060- 6541 Oct, Anxiety F41.9 and Mood disorder F39 [facility] [place] [address] 41454- 3994 Oct, Nail, ingrown L60.0 and Anxiety F41.9 [facility] [place] [id number] [place] [address] 75221- 0852 Oct, Lupus erythematosus L93.0 [facility] [place] [id number] [place] [address] 95659- 5341 September, [facility] [place] [id number] [place] [address] 36529- 5677 September, [facility] [place] [id number] [place] [address] 36573- 6412 September, Lupus erythematosus L93.0 [facility] [place] [id number] [place] [address] 06205- 8513 Aug, [facility] [place] [id number] [place] [address] 77859- 6070 Aug, Mood disorder F39 and Anxiety F41.9 [facility] [place] [id number] [place] [address] 51948- 9309 Aug, Lupus erythematosus L93.0 ; Diabetes type 2, controlled E11.9 and Localized edema R60.0 [place] [id number] [place] [address] 29966- 5705 Aug, [place] [id number] [place] [address] 43426- 7468 Jul, Anxiety F41.9 and Mood disorder F39 [place] [id number] [place] [address] 66143- 0827 Jul, Diabetes type 2, controlled E11.9 [place] [address] 50210- 1496 Jun, Anxiety F41.9 [place] [id number] [place] [address] 08323- 8398 May, [place] [address] 72688- 3746 May, [place] [id number] [place] [address] 00244- 4758 May, Nausea R11.0 ; Other chronic pain G89.29 and Pain in right knee M25.561 [place] [id number] [place] [address] 14254- 0318 May, [place] [id number] [place] [address] 98125- 5966 Apr, Tear of medial meniscus of right knee, current, unspecified tear type, subsequent encounter S83.241D and Tear of lateral meniscus of right knee, current, unspecified tear type, subsequent encounter S83.281D [place] [id number] [place] [address] 50138- 9069 Apr, Anxiety F41.9 and Mood disorder F39 [place] [id number] [place] [address] 17474- 3732 Apr, Anxiety F41.9 [facility] [place] [id number] [place] [address] 71355- 1214 05 Apr, 2016 [facility] [place] [id number] [place] [address] 53199- 2472 Mar, [facility] [place] [id number] [place] [address] 84660- 4723 Mar, Lupus erythematosus L93.0 and Diabetes type 2, controlled E11.9 [facility] [place] [id number] [place] [address] 82759- 0957 Mar, Mood disorder F39 [place] [id number] [place] [address] 24994- 5145 Mar, Tear of lateral meniscus of right knee, current, unspecified tear type, initial encounter S83.281A and Osteoarthritis of right knee, unspecified osteoarthritis type M17.9 [facility] [place] [id number] [place] [address] 46086- 0671 Mar, [facility] [place] [id number] [place] [address] 49730- 2613 Feb, Mood disorder F39 [facility] [place] [id number] [place] [address] 38183- 5640 Feb, Rash R21 [facility] [place] [id number] [place] [address] 02701- 2421 Feb, [facility] [place] [id number] [place] [address] 82780- 1907 Jan, Other chronic pain G89.29 and Muscle spasm M62.838 [facility] [place] [id number] [place] [address] 39127- 8049 Jan, Mood disorder F39 [facility] [place] [id number] [place] [address] 92615- 6646 Jan, Pain in right knee M25.561 ; Other chronic pain G89.29 and Muscle spasm M62.838 [facility] [place] [id number] [address]- 5060 Dec, [facility] [place] [id number] [place] [address] 30672- 0728 Dec, [facility] [place] [id number] [place] [address] 51428- 5921 Nov, [place] [id number] [place] [address] 29155- 5136 Nov, Mood disorder F39 [place] [id number] [place] [address] 51488- 9334 Nov, Diabetes type 2, controlled E11.9 ; Bronchitis J40 ; Edema, unspecified type R60.9 ; Weight gain R63.5 and Right knee pain, unspecified chronicity M25.561 [place] [id number] [place] [address] 14843- 6818 Oct, Mood disorder F39 [place] [id number] [place] [address] 77432- 0165 Oct, Lupus erythematosus L93.0 and Bilateral edema of lower extremity R60.0 [place] [id number] [place] [address] 42022- 5366 Oct, Mood disorder F39 and Anxiety F41.9 [place] [id number] [place] [address] 21767- 4061 September, Mood disorder F39 ; Anxiety F41.9 and Anger reaction R45.4 [place] [id number] [place] [address] 95683- 8062 September, Diabetes type 2, controlled E11.9 ; Edema, unspecified type R60.9 and Fatigue, unspecified type R53.83 [place] [id number] [place] [address] 82884- 4072 Aug, Mood disorder F39 and Generalized anxiety disorder F41.1 [place] [id number] [place] [address] 67657- 3860 Aug, Diabetes type 2, controlled E11.9 ; Sinusitis J32.9 and Mood disorder F39 [facility] [place] [id number] [place] [address] 82604- 6865 15 Aug, 2015 Lupus erythematosus L93.0 [facility] [place] [id number] [place] [address] 40044- 0038 14 Aug, 2015 [facility] [place] [id number] [place] [address] 03382- 7552 Aug, [facility] [place] [id number] [place] [address] 65012- 6062 Jul, Diabetes type 2, controlled E11.9 [facility] [place] [id number] [place] [address] 85233- 9507 Jul, Mood disorder F39 and Depression F32.9 [facility] [place] [id number] [place] [address] 00997- 7057 Jul, Lupus erythematosus L93.0 and Diabetes type 2, controlled E11.9 [facility] [place] [id number] [place] [address] 49262- 0931 Jul, Mood disorder F39 and Anxiety F41.9 [facility] [place] [id number] [place] [address] 13603- 6273 Jul, [facility] [place] [id number] [place] [address] 00635- 6969 Jul, [facility] [place] [id number] [place] [address] 44924- 6153 Jun, Mood disorder F39 and Anxiety F41.9 [facility] [place] [id number] [place] [address] 13726- 0340 Jun, Mood disorder F39 [facility] [place] [id number] [place] [address] 05685- 5160 18 Jun, 2015 [facility] [place] [id number] [place] [address] 66897- 5003 15 Jun, 2015 [facility] [place] [address], [place] [address]- 3394 Jun, Mood disorder F39 [facility] [place] [address], [place] [address]- 2188 Jun, [facility] [place] [address], [place] [address]- 4073 May, [facility] [place] [id number] [place] [address] 92727- 9321 May, [facility] [place] [id number] [place] [address] 33955- 8485 May, [facility] [place] [id number] [place] [address] 23777- 1349 May, [facility] [place] [id number] [place] [address] 68352- 6509 May, Anxiety F41.9 ; Dermatomyositis M33.90 and Diabetes type 2, controlled E11.9 [facility] [id number], [place] [address] -3502 May, Sinusitis J32.9 and Cough R05 [facility] [place] [address] [address]- 5010 May, Mood disorder F39 [facility] [place] [address] [address]- 6583 May, Adjustment disorder with mixed anxiety and depressed mood F43.23 [facility] [place] [address] [address]- 0014 Apr, [facility] [place] [id number] [address]- 8234 Apr, [facility] [place] [address], [place] [address]- 0711 Apr, Generalized anxiety disorder F41.1 and Mood disorder F39 [facility] [place] [id number] [place] [address] 56500- 9170 Mar, [facility] [place] [id number] [place] [address] 24315- 5245 Mar, [facility] [place] [id number] [place] [address] 96326- 8948 Mar, [facility] [place] [id number] [place] [address] 14956- 3760 Mar, Mood disorder F39 [facility] [place] [id number] [place] [address] 17369- 5273 Feb, [facility] [place] [id number] [place] [address] 82045- 9118 Feb, Diabetes E11.9 and Bronchitis J40 [facility] [place] [id number] [place] [address] 23211- 2681 Feb, [facility] [place] [id number] [place] [address] 72778- 4384 Feb, [facility] [place] [id number] [place] [address] 98470- 9254 Feb, Major depression, recurrent, full remission F33.42 and KELLY ( generalized anxiety disorder) F41.1 [facility] [place] [id number] [place] [address] 84179- 8219 Feb, [facility], [place] [id number] [place] [address] 60910- 6956 Feb, Single major depressive episode, in partial or unspecified remission F32.5 [facility], [place] [id number] [place] [address] 69362- 5409 Jan, Fatigue 780.79 [facility], [place] [id number] [place] [address] 42484- 9103 Jan, [facility], [place] [id number] [place] [address] 69018- 0801 Jan, Diabetes with other specified manifestations, type II or unspecified type, not stated as uncontrolled 250.80 [address] [id number] [place] [address] 09648- 6687 Jan, [place] [place] [id number] [place] [address] [id number] Dec, Hot flashes 627.2 ; Memory loss 780.93 and Joint pain 719.40 [id number] [place] [address] 40795- 4496 Dec, Major depression, recurrent 296.30 ; Generalized anxiety disorder 300.02 ; Adjustment disorder with depressed mood 309.0 and No condition on Ransom II V71.09 [id number] [place] [address] 41044- 5882 Dec, [place] [id number] [place] [address] 51198- 5322 Nov, Cognitive and neurobehavioral dysfunction 294.9 ; Major depressive disorder, recurrent episode, moderate degree 296.32 and Anxiety state , unspecified 300.00 [address] [place] [id number] [place] [address] 47317- 7305 Nov, [id number] [place] [address] 86659- 4506 Nov, Bronchitis 490 and Diabetes with other specified manifestations, type II or unspecified type, not stated as uncontrolled 250.80 [address] [place] [id number] [place] [address] 72749- 5866 Nov, Major depressive disorder, recurrent episode, moderate 296.32 and Anxiety disorder, unspecified 300.00 [id number] [place] [address] 35689- 6425 Nov, Anxiety, generalized 300.02 ; Intermittent explosive disorder 312.34 ; No condition on Ransom II V71.09 and No condition on axis III V71.09 [id number] [place] [address] 82074- 2105 Oct, Diabetes with other specified manifestations, type II or unspecified type, not stated as uncontrolled 250.80 ; Urinary tract infection, site not specified 599.0 and Bronchitis [id number] [place] [address] 88845- 5623 Oct, Intermittent explosive disorder 312.34 ; Bipolar 1 disorder , depressed, moderate 296.52 ; Major depression, chronic 296.20 ; No condition on Ransom II V71.09 and No condition on axis III V71.09 [id number] [place] [address] 57281- 8513 Oct, Major depressive disorder, recurrent episode, moderate 296.32 ; Anxiety state 300.00 ; Cognitive decline 294.9 and No condition on Ransom II V71.09 [id number] [place] [address] 88179- 1071 Oct, [id number] [place] [address] 00824- 8202 Oct, Major depressive disorder, recurrent episode, moderate 296.32 ; Anxiety disorder, unspecified 300.00 and Persistent disorder of initiating or maintaining sleep 307.42 [place] [id number] [place] [address]- 7934 September, Diabetes with other specified manifestations, type II or unspecified type, not stated as uncontrolled 250.80 ; Memory loss 780.93 and Cognitive complaints 799.[id number] [place] [address]- 4738 September, No condition on Ransom II V71.09 ; Major depression, recurrent 296.30 and Persistent mood [affective] disorder, unspecified 296.[id number] [place] [address] 44292- 0513 Aug, [place] [id number] [place] [address] 51202- 2216 Aug, [place] [id number] [place] [address] 72976- 5334 Aug, [place] [id number] [address] Jul, 2014 [facility] [place] [facility] [address] [id number] [place] [address] 2738 Jul, 2014 [facility] [place] [facility] [address] [id number] [place] [address]- 0432 Jul, 2014 [facility] [place] [facility] [address] [facility] [id number] [place] [address]- 9982 Jul, 2014 [facility] [place] [facility] [address] [id number] [place] [address]- 3134 Jul, 2014 [facility] [place] [facility] [address] [id number] [place] [address]- 6681 Jun, 2014 [facility] [place] [facility] [address] [facility] [id number] [place] [address]- 2907 Jun, 2014 [facility] [place] [facility] [address] [facility] [id number] [place] [address]- 5952 Jun, 2014 [facility] [place] [facility] [address] [facility] [id number] [place] [address]- 1810 Jun, 2014 [facility] [place] [facility] [address] [facility] [id number] [place] [address]- 4121 Jun, 2014 [facility] [place] [facility] [address] [facility] [id number] [place] [address]- 9121 Jun, 2014 [facility] [place] [facility] [address] [facility] [id number] [address]- 9663 Jun, 2014 [facility] [place] [facility] [address] [facility] [id number] [place] [address]- 8534 Jun, 2014 [facility] [place] [facility] [address] [facility] [id number] [place] [address]- 4211 Jun, 2014 [facility] [place] [facility] [address] [facility] [id number], [place] [address]- 0147 Jun, 2014 [facility] [place] [facility] [address] [facility] [id number], [place] [address]- 8849 Jun, [facility] [place] [facility] [address] [id number] [place] [address]- 5167 Jun, [facility] [place] [facility] [address] [id number] [place] 1592 Jun, [facility] [place] [facility] [address] [facility] [id number] [place] [address]- 7895 May, [facility] [place] [facility] [address] [id number] [place] [address]- 5430 May, [facility] [place] [facility] [address] [id number] [place] [address]- 6456 Apr, [facility] [place] [facility] [address] [id number] [place] [address]- 8622 Apr, [facility] [place] [facility] [address] [facility] [id number] [place] [address]- 2892 Apr, [facility] [place] [facility] [address] [id number] [place] [address]- 9648 Apr, [facility] [place] [facility] [address] [facility] [id number] [place] [address]- 4625 Apr, [facility] [place] [facility] [address] [facility] [id number] [place] [address]- 0666 Apr, [facility] [place] [facility] [address] [facility] [id number] [place] [address]- 3560 Apr, [facility] [place] [facility] [address] [id number] [place] [address]- 3035 Apr, [facility] [place] [facility] [address] [id number] [place] [address]- 7108 15 Apr, 2014 [facility] [place] [facility] [address] [id number] [place] [address]- 2914 Apr, [facility] [place] [facility] [address] [facility] [id number] [place] [address]- 1774 Apr, [facility] [place] [facility] [address] [id number] [place] [address]- 8590 Apr, [facility] [place] [facility] [address] [id number] [place] [address]- 2329 Apr, [facility] [place] [facility] [address] [id number] [place] [address]- 3944 Apr, [facility] [place] [facility] [address] [id number] [place] [address]- 9671 Apr, [facility] [place] [facility] [address] [id number] [place] [address]- 3137 Apr, [facility] [place] [facility] [address] [id number] [place] [address]- 4045 Apr, [facility] [place] [facility] [address] [id number] [place] [address]- 5873 Apr, [facility] [place] [facility] [address] [id number] [place] [address]- 3643 Apr, [facility] [place] [facility] [address] [id number] [place] [address]- 2419 Apr, [facility] [place] [facility] [address] [id number] [place] [address]- 5464 Mar, [facility] [place] [facility] [address] [id number] [place] [address]- 1093 Mar, [facility] [place] [facility] [address] [id number] [place] [address]- 4744 Mar, [facility] [place] [facility] [address] [id number] [place] [address]- 6615 Mar, [facility] [place] [facility] [address] [id number] [place] [address]- 9524 Mar, [facility] [place] [facility] [address] [id number] [place] [address]- 5685 Mar, [facility] [place] [facility] [address] [id number] [place] [address]- 2865 Mar, [facility] [place] [facility] [address] [id number] [place] [address]- 9103 Mar, [facility] [place] [facility] [address] [id number] [place] [address]- 7310 Mar, [facility] [place] [facility] [address] [id number] [place] [address]- 9264 Mar, [facility] [place] [facility] [address] [id number] [place] [address]- 3775 Mar, [facility] [place] [facility] [address] [id number] [place] [address]- 0738 Mar, [facility] [place] [facility] [address] [id number] [place] [address]- 1868 Mar, [facility] [place] [facility] [address] [id number] [place] [address]- 0614 Feb, [facility] [place] [facility] [address] [id number] [place] [address]- 6971 Feb, [facility] [place] [facility] [address] [id number] [place] [address]- 7915 30 Feb, 2014 [facility] [place] [facility] [address] [id number], [place] [address]- 9655 Feb, [facility] [place] [facility] [address] [id number], [place] [address]- 2665 Feb, [facility] [place] [facility] [address] [id number], [place] [address]- 0088 Feb, [facility] [place] [facility] [address] [id number] [place] [address]- 4361 Feb, [facility] [place] [facility] [address] [id number], [place] [address]- 0628 Feb, [facility] [place] [facility] [address] [id number], [place] [address]- 5424 Feb, [facility] [place] [facility] [address] [id number] [place] [address]- 9628 13 Feb, 2014 [facility] [place] [facility] [address] [id number] [place] [address]- 2165 13 Feb, 2013 [facility] [place] [facility] [address] [id number] [place] [address]- 1432 10 Feb, 2014 [facility] [place] [facility] [address] [id number] [place] [address]- 5436 10 Feb, 2014 [facility] [place] [facility] [address] [id number] [place] [address]- 4997 07 Feb, 2014 [facility] [place] [facility] [address] [id number] [place] [address]- 4384 07 Feb, 2014 [facility] [place] [facility] [address] [id number] [place] [address]- 0702 10 Jan, 2013 [facility] [place] [facility] [address] [id number] [place] [address]- 2558 08 Jan, 2013 [facility] [place] [facility] [address] [id number] [place] [address]- 2929 08 Jan, 2013 [facility] [place] [facility] [address] [id number] [place] [address]- 8412 08 Jan, 2013 [facility] [place] [facility] [address] [id number] [place] [address]- 0005 08 Jan, 2013 [facility] [place] [facility] [address] [id number] [place] [address]- 5563 Dec, [facility] [place] [facility] [address] [id number] [place] [address]- 8370 Dec, [facility] [place] [facility] [address] [id number] [place] [address]- 0682 Dec, [facility] [place] [facility] [address] [id number] [place] [address]- 9662 Dec, [facility] [place] [facility] [address] [id number] [place] [address]- 7864 Nov, [facility] [place] [facility] [address] [id number] [place] [address]- 1397 Nov, 2013 [facility] [place] [facility] [address] [id number] [place] [address]- 6585 Nov, [facility] [place] [facility] [address] [id number] [place] [address]- 9929 Nov, 2013 [facility] [place] [facility] [address] [id number] [place] [address]- 5707 Nov, [facility] [place] [facility] [address] [id number] [place] [address]- 1010 Nov, [facility] [place] [facility] [address] [id number] [place] [address]- 3846 Nov, [facility] [place] [facility] [address] [id number] [place] [address]- 6661 Nov, [facility] [place] [facility] [address] [id number] [place] [address]- 7056 Nov, [facility] [place] [facility] [address] [id number] [place] [address]- 6422 Nov, [facility] [place] [facility] [address] [id number] [place] [address]- 2179 Oct, [facility] [place] [facility] [address] [id number] [place] [address]- 2381 Oct, [facility] [place] [facility] [address] [id number] [place] [address]- 1658 September, [facility] [place] [facility] [address] [id number] [place] [address]- 7635 September, [facility] [place] [facility] [address] [id number] [place] [address]- 7344 September, [facility] [place] [facility] [address] [id number] [place] [address]- 0970 September, [facility] [place] [facility] [address] [id number], [place] [address]- 1486 16 Aug, 2013 [facility] [place] [facility] [address] [id number] [place] [address]- 4432 14 Aug, 2013 [facility] [place] [facility] [address] [id number] [place] [address]- 6661 14 Aug, 2013 [facility] [place] [facility] [address] [id number] [place] [address]- 1643 24 Jul, 2013 [facility] [place] [facility] [address] [id number] [place] [address]- 5420 24 Jul, 2013 [facility] [place] [facility] [address] [id number] [place] [address]- 0275 Jul, [facility] [place] [facility] [address] [id number] [place] [address]- 0198 14 Jul, 2013 [facility] [place] [facility] [address] [id number] [place] [address]- 8965 May, [facility] [place] [facility] [address] [id number] [place] [address]- 6751 17 May, 2013 [facility] [place] [facility] [address] [id number], [place] [address]- 8795 17 May, 2013 [facility] [place] [facility] [address] [id number] [place] [address]- 0930 15 Mar, 2013 [facility] [place] [facility] [address] [id number], [place] [address]- 8785 15 Mar, 2013 [facility] [place] [facility] [address] [id number], [place] [address]- 5592 13 Mar, 2013 [facility] [place] [facility] [address] [id number] [place] [address]- 9423 13 Mar, 2013 [facility] [place] [facility] [address] [id number], [place] [address]- 9879 16 Feb, 2013 [facility] [place] [facility] [address] [id number], [place] [address]- 0444 16 Feb, 2013 [facility] [place] [facility] [address] [id number] [place] [address]- 5958 04 Feb, 2013 [facility] [address] [id number] [place] [address]- 9317 16 Jan, 2013 [facility] [address] [id number] [place] [address]- 5612 Jan, [facility] [address] [id number] [place] [address]- 4387 Jan, [facility] [address] [id number] [place] [address]- 5308 Dec, [facility] [address] [id number] [place] [address]- 1590 Dec, [facility] [address] [id number] [place] [address]- 2933 Dec, [facility] [address] [id number] [place] [address]- 3747 Dec, [facility] [address] [id number] [place] [address]- 4017 Nov, [facility] [address] [id number] [place] [address]- 3016 Oct, [facility] [address] [id number] [place] [address]- 4341 Oct, [facility] [address] [id number] [place] [address]- 4434 September, [facility] [address] [id number] [place] [address]- 1269 September, [facility] [place] [facility] [address] [id number] [place] [address]- 6973 September, [facility] [address] [id number] [place] [address]- 9671 Aug, [facility] [address] [id number] [place] [address]- 1762 Aug, [facility] [address] [id number] [place] [address]- 5569 17 Aug, 2012 [facility] [address] [id number] [place] [address]- 2990 09 Aug, 2012 [facility] [address] [id number] [place] [address]- 0382 26 Jul, 2012 [facility] [place] [facility] [address] [id number] [place] [address]- 4514 25 Jul, 2012 [facility] [address] [id number] [place] [address]- 8767 Jul, [facility] [place] [facility] [address] [id number] [place] [address]- 0961 15 Jul, 2012 [facility] [address] [id number] [place] [address]- 9917 14 Jul, 2012 [facility] [address] [id number] [place] [address]- 0526 Jul, [facility] [place] [facility] [address] [id number] [place] [address]- 9941 Jul, [facility] [place] [facility] [address] [id number] [place] [address]- 4459 Jun, [facility] [place] [facility] [address] [id number] [place] [address]- 2276 Jun, [facility] [place] [facility] [address] [id number] [place] [address]- 0516 Jun, [facility] [place] [facility] [address] [id number] [place] [address]- 8966 Jun, [facility] [place] [facility] [address] [id number] [place] [address]- 1636 May, [facility] [place] [facility] [address] [id number] [place] [address]- 2666 May, [facility] [place] [facility] [address] [id number] [place] [address]- 3003 30 May, 2012 [facility] [address] [id number] [place] [address]- 3107 May, [facility] [place] [facility] [address] [id number] [place] [address]- 2531 May, [facility] [place] [facility] [address] [id number] [place] [address]- 3120 Apr, [facility] [place] [facility] [address] [id number] [place] [address]- 2788 Apr, [facility] [place] [facility] [address] [id number] [place] [address]- 8898 Mar, [facility] [place] [facility] [address] [id number] [place] [address]- 0846 Mar, [facility] [place] [facility] [address] [id number] [place] [address]- 3712 Mar, [facility] [place] [facility] [address] [id number] [place] [address]- 4620 Mar, [facility] [place] [facility] [address] [id number] [place] [address]- 9288 Mar, [facility] [place] [facility] [address] [facility] [id number] [place] [address]- 6032 Mar, [facility] [place] [facility] [address] [id number] [place] [address]- 5931 Mar, [facility] [place] [facility] [address] [id number] [place] [address]- 6739 Mar, [facility] [place] [facility] [address] [id number] [place] [address]- 4382 Mar, [facility] [place] [facility] [address] [id number] [place] [address]- 9630 Mar, [facility] [place] [facility] [address] [id number] [place] [address]- 0896 Feb, [facility] [place] [facility] [address] [id number] [place] [address]- 5369 Feb, [facility] [place] [facility] [address] [id number] [place] [address]- 7133 Feb, [facility] [place] [facility] [address] [id number] [place] [address]- 1608 Feb, [facility] [place] [facility] [address] [id number] [place] [address]- 6993 Feb, [facility] [place] [facility] [address] [id number] [place] [address]- 6339 Feb, [facility] [place] [facility] [address] [id number] [place] [address]- 1495 Feb, [facility] [place] [facility] [address] [id number] [place] [address]- 0102 Jan, [facility] [place] [facility] [address] [id number] [place] [address]- 9098 Jan, [facility] [place] [facility] [address] [id number] [place] [address]- 1082 Dec, [facility] [place] [facility] [address] [id number] [place] [address]- 2670 Dec, [facility] [place] [facility] [address] [id number] [place] [address]- 5262 Dec, [facility] [place] [facility] [address] [id number] [place] [address]- 8563 Dec, [facility] [place] [facility] [address] [id number] [place] [address]- 4461 Dec, [facility] [place] [facility] [address] [id number] [place] [address]- 7110 Dec, [facility] [place] [facility] [address] [id number] [place] [address]- 2087 Nov, [facility] [place] [facility] [address] [id number] [place] [address]- 5966 Nov, [facility] [address] [id number] [place] 1438 Nov, [facility] [place] [facility] [address] [id number] [place] [address]- 8239 Nov, [facility] [place] [facility] [address] [id number] [place] [address]- 2238 September, [facility] [place] [facility] [address] [id number] [place] [address]- 7984 September, [facility] [place] [facility] [address] [id number] [place] [address]- 7316 September, [facility] [place] [facility] [address] [id number] [place] 2618 Jul, [facility] [place] [facility] [address] [id number] [place] [address]- 1823 Jun, [facility] [place] [facility] [address] [id number] [place] [address]- 7412 Jun, [facility] [place] [facility] [address] [id number] [place] [address]- 0034 Jun, [facility] [place] [facility] [address] [id number] [place] [address]- 5792 Apr, [facility] [place] [facility] [address] [id number] [place] [address]- 6704 Mar, [facility] [place] [facility] [address] [id number] [place] [address]- 3395 Mar, [facility] [place] [facility] [address] [id number] [place] [address]- 0788 Feb, [facility] [place] [facility] [address] [id number] [place] [address] Feb, [facility] [place] [facility] [address] [id number] [place] [address] Feb, [facility] [place] [facility] [address] [facility] [id number] [place] [address] 10 Jul, 2009 [facility] [place] [address] [facility] [id number] [address] Feb, IMMUNIZATIONS No Known Immunizations SOCIAL HISTORY Never Assessed REASON FOR VISIT f/u PLAN OF CARE Activity Details Follow Up 4 Weeks Reason:anxiety, depression, VITAL SIGNS MEDICATIONS Medication Instructions Dosage Frequency Start Date End Date Duration Status Glucocard Expression Test - as directed 24h Nov, 50 Unknown Magnesium Oxide 400 mg Orally Once a day 1 tablet as needed 24h 30 day(s) Unknown [place] 7.5-325 MG Orally every 6 hrs 1 tablet as needed 6h 14 Jun, 2017 Unknown PredniSONE 20 MG 1 TABLET ONCE A DAY ORALLY 30 DAY(S) 30 Unknown Potassium Chloride [facility] 20 MEQ TAKE ONE TABLET BY MOUTH ONCE DAILY WITH FOOD 30 Unknown Benzonatate 100 MG TAKE ONE CAPSULE BY MOUTH THREE TIMES DAILY NEEDED 10 Unknown Folic Acid 1 MG TAKE ONE TABLET BY MOUTH ONCE DAILY (DO NOT TAKE ON DAYS YOU TAKE METHOTREXATE) 30 Unknown RESULTS No Results PROCEDURES Procedure Date Ordered Result Body Site Psychotherapy, patient &/family, 30 minutes, established patient August 04, 2017 INSTRUCTIONS MEDICATIONS ADMINISTERED No Known Medications MEDICAL (GENERAL) HISTORY Type Description Date Medical History type II diabetes-dx'd 12/2010 Medical History dysfunctional uterine bleeding--endometrial bx 12/2010 Medical History asthma Medical History hypertension Medical History obesity Medical History anxiety Medical History autoimmune disease Surgical History x1 Hospitalization History child Hospitalization History Asthma
--- OUTSIDE RECORDS SUMMARY | 2018-02-02 23:50 | XMS REPORT ---
Author Author MACY TAMAYO Organization [facility] Address [address] [place] [address] Care Team Providers Care Concrete Inspector Name Role Phone MACY TAMAYO Unavailable PROBLEMS Type Condition ICD9-CM Code CJS10-OH Code Onset Dates Condition Status SNOMED Code Problem Plantar wart of both feet B07.0 Active [id number] Problem Controlled type 2 diabetes mellitus without complication, without long -term current use of insulin E11.9 Active 833485866 Problem Lumbago with sciatica, left side M54.42 Active 764921639 Problem Lumbago with sciatica, right side M54.41 Active 550795538 Problem Morbid (severe) obesity due to excess calories E66.01 Active 860537710 Problem Body mass index (BMI) of 45.0-49.9 in adult Z68.42 Active 902208283 Problem Tachycardia with heart rate 121-140 beats per minute R00.0 Active 8701517 Problem Dermatomyositis M33.90 Active 033750830 Problem Enlarged thyroid gland E04.9 Active 3260060 Problem Allergic rhinitis due to pollen J30.1 Active 86283124 Problem Mood disorder F39 Active 21176110 Problem Menopause Z78.0 Active 041905603 Problem Anxiety F41.9 Active 42981401 Problem Other chronic pain G89.29 Active 55285505 Problem Diabetes type 2, controlled E11.9 Active 18757374 Problem Arthritis M19.90 Active 4534676 Problem Osteoarthritis of right knee, unspecified osteoarthritis type M17.9 Active 898622252 Problem Plantar warts B07.0 Active 44740008 ALLERGIES No Information ENCOUNTERS Encounter Location Date Diagnosis [facility] [id number] [address] Dec, [facility] [id number] [address] Nov, [facility] [address] [address] 6[address] Nov, [facility] [id number] [place] [address] 38719- 7753 Nov, Mood disorder F39 [facility] [address] [place] [address] 02760- 0320 Nov, Lumbago with sciatica, right side M54.41 and Other chronic pain G89.29 [facility] [id number] [place] [address] 02131- 7378 Nov, Acute right ankle pain M25.571 [facility] [id number] [place] [address] 78159- 7069 Nov, [facility] [id number] [place] [address] 30320- 7059 Oct, [facility] [id number] [place] [address] 77021- 5455 Oct, Plantar wart of both feet B07.0 [facility] [address] [address] 77[address] Oct, [facility] [address] [place] [address] 39602- 8482 Oct, Acute right ankle pain M25.571 and Plantar wart of both feet B07.0 [facility] [address] [place] [address] 66502- 7437 September, Other chronic pain G89.29 [facility] [address], [place] [address] 3176 September, Other chronic pain G89.29 [facility] [address] [place] [address] 31769- 9669 September, Other chronic pain G89.29 [facility] [address] [address] 3536 Aug, Mood disorder F39 [place] [id number] [place] [address] 23048- 5421 16 Aug, 2017 Other chronic pain G89.29 ; Controlled type 2 diabetes mellitus without complication, without long-term current use of insulin E11.9 ; Low back pain M54.5 and Tinea corporis B35.4 [place] [address] 7[address]83- 6060 13 Aug, 2017 Mood disorder F39 and Anxiety F41.9 [place] [address] 82482- 7654 Aug, Mood disorder F39 and Anxiety F41.9 [place] [address] 11792- 1265 Jul, [facility] [place] [address] [address]23 -[address]107 Jul, Scabies B86 and BMI 45.0-49.9, adult Z68.42 [place] [address] 92079- 2347 Jul, [place] [address] 04445- 3799 Jul, Mood disorder F39 and Anxiety F41.9 [place] [address] 95152- 1501 Jul, [facility] [place] [address] 24634 -0531 27 Jun, 2017 Bronchitis J40 ; Dark urine R82.99 and BMI 45.0-49.9, adult Z68.42 [place] [address] 75636- 6987 14 Jun, 2017 Acute pain of right shoulder M25.511 and Acute pain of right knee M25.561 [place] [address] 20578- 2677 May, BMI 40.0-44.9, adult Z68.41 ; Controlled type 2 diabetes mellitus without complication, without long-term current use of insulin E11.9 ; Muscle cramping R25.2 ; Hot flashes R23.2 ; Mood disorder F39 ; Anxiety F41.9 and Morbid (severe) obesity due to excess calories E66.01 [id number] [place] [address] 33583- 6237 May, BMI 40.0-44.9, adult Z68.41 ; Controlled type 2 diabetes mellitus without complication, without long-term current use of insulin E11.9 ; Muscle cramping R25.2 and Hot flashes R23.[address] 43619- 0607 May, Tachycardia with heart rate 121-140 beats per minute R00.0 ; Morbid (severe) obesity due to excess calories E66.01 ; Diabetes type 2, controlled E11.9 and Enlarged thyroid gland E04.[address] 86607- 6164 May, Encounter for well woman exam with [...] Dysuria R30.0 and Screening breast examination Z12.31 [id number] [place] [address] 89636- 2244 Apr, Mood disorder F39 ; Other chronic pain G89.29 and Anxiety F41.9 [id number] [place] [address] 25070- 1772 Apr, Lumbago with sciatica, left side M54.42 and Other chronic pain G89.[address] 91801- 9579 Apr, Lupus erythematosus L93.0 [facility] [id number] [place] [address] 94920- 2257 Mar, Plantar wart of both feet B07.0 [facility] [id number] [place] [address] 74384- 7416 Mar, Lupus erythematosus L93.0 and Sinus drainage J34.89 [facility] [id number] [place] [address] 19199- 2444 Mar, Mood disorder F39 ; Other chronic pain G89.29 and Anxiety F41.9 [facility] [address] 26777- 8478 Mar, Mood disorder F39 ; Arthritis M19.90 and Plantar warts B07.0 [facility] [id number] [place] [address] 75486- 9981 Feb, Lupus erythematosus L93.0 [facility] [id number] [place] [address] 35252- 7494 Feb, Other chronic pain G89.29 [facility] [id number] [place] [address] 36119- 1995 Feb, Mood disorder F39 and Anxiety F41.9 [facility] [id number] [place] [address] 12692- 7659 Jan, [facility] [id number] [place] [address] 11724- 7705 Jan, Mood disorder F39 [facility] [id number] [place] [address] 32623- 0044 Dec, Nail, ingrown L60.0 [facility] [id number] [place] [address] 28864- 5969 Dec, Nail, ingrown L60.0 [facility] [id number] [place] [address] 11991- 1508 Nov, Mood disorder F39 and Anxiety F41.9 [facility] [address] [place] [address] 33716- 3970 Nov, Sinus drainage J34.89 ; Hot flashes R23.2 ; Anxiety F41.9 and Diabetes type 2, controlled E11.9 [facility] [id number] [place] [address] 74774- 2018 Nov, Nail, ingrown L60.0 [facility] [id number] [place] [address] 66049- 5797 Oct, Anxiety F41.9 and Mood disorder F39 [facility] [id number] [place] [address] 40936- 5075 Oct, Nail, ingrown L60.0 and Anxiety F41.9 [facility] [id number] [place] [address] 33516- 1597 Oct, Lupus erythematosus L93.0 [facility] [id number] [place] [address] 70538- 1341 September, [facility] [id number] [place] [address] 54077- 8488 September, [facility] [id number] [place] [address] 97409- 2892 September, Lupus erythematosus L93.0 [facility] [id number] [place] [address] 21539- 2625 Aug, [facility] [id number] [place] [address] 37072- 5011 Aug, Mood disorder F39 and Anxiety F41.9 [facility] [id number] [place] [address] 91932- 6904 Aug, Lupus erythematosus L93.0 ; Diabetes type 2, controlled E11.9 and Localized edema R60.0 [facility] [id number] [place] [address] 47481- 1118 Aug, [facility] [address], [place] [address]- 0963 Jul, Anxiety F41.9 and Mood disorder F39 [place] [id number] [place] [address] 97327- 2691 Jul, Diabetes type 2, controlled E11.9 [place] [id number] [place] [address] 96901- 8609 Jun, Anxiety F41.9 [place] [id number] [place] [address] 04394- 2040 May, [place] [address] 46407- 9615 May, [place] [id number] [place] [address] 20090- 0955 May, Nausea R11.0 ; Other chronic pain G89.29 and Pain in right knee M25.561 [place] [id number] [place] [address] 10130- 9857 May, [place] [id number] [place] [address] 10102- 8157 Apr, Tear of medial meniscus of right knee, current, unspecified tear type, subsequent encounter S83.241D and Tear of lateral meniscus of right knee, current, unspecified tear type, subsequent encounter S83.281D [place] [address] [place] [address] 18407- 4778 Apr, Anxiety F41.9 and Mood disorder F39 [place] [address] [place] [address] 93656- 5760 Apr, Anxiety F41.9 [place] [id number] [place] [address] 35532- 4048 Apr, [place] [address] [place] [address] 66318- 0166 Mar, [place] [id number] [place] [address] 22866- 6773 Mar, Lupus erythematosus L93.0 and Diabetes type 2, controlled E11.9 [facility] [id number] [place] [address] 51327- 3122 Mar, Mood disorder F39 [facility] [id number] [place] [address] 52425- 8692 Mar, Tear of lateral meniscus of right knee, current, unspecified tear type, initial encounter S83.281A and Osteoarthritis of right knee, unspecified osteoarthritis type M17.9 [facility] [id number] [place] [address] 63100- 5518 Mar, [facility] [id number] [place] [address] 46213- 3286 Feb, Mood disorder F39 [facility] [id number] [place] [address] 76381- 4946 Feb, Rash R21 [facility] [id number] [place] [address] 86887- 3521 Feb, [facility] [id number] [place] [address] 69398- 3671 Jan, Other chronic pain G89.29 and Muscle spasm M62.838 [facility] [id number] [place] [address] 36376- 9915 Jan, Mood disorder F39 [facility] [id number] [place] [address] 25815- 9026 Jan, Pain in right knee M25.561 ; Other chronic pain G89.29 and Muscle spasm M62.838 [facility] [id number] [place] [address] 22149- 8572 Dec, [facility] [id number] [place] [address] 98508- 6560 Dec, [facility] [id number] [place] [address] 05453- 4275 Nov, [place] [address], [place] [address]- 7565 Nov, Mood disorder F39 [place] [id number] [place] [address] 97685- 6479 Nov, Diabetes type 2, controlled E11.9 ; Bronchitis J40 ; Edema, unspecified type R60.9 ; Weight gain R63.5 and Right knee pain, unspecified chronicity M25.561 [place] [id number] [place] [address] 36987- 6952 Oct, Mood disorder F39 [place] [id number] [place] [address] 12721- 1627 Oct, Lupus erythematosus L93.0 and Bilateral edema of lower extremity R60.0 [place] [id number] [place] [address] 99952- 5766 Oct, Mood disorder F39 and Anxiety F41.9 [place] [id number] [place] [address] 01326- 8057 September, Mood disorder F39 ; Anxiety F41.9 and Anger reaction R45.4 [place] [id number] [place] [address] 69003- 2483 September, Diabetes type 2, controlled E11.9 ; Edema, unspecified type R60.9 and Fatigue, unspecified type R53.83 [place] [address] [place] [address] 85280- 5669 Aug, Mood disorder F39 and Generalized anxiety disorder F41.1 [place] [address] [place] [address] 70405- 4918 Aug, Diabetes type 2, controlled E11.9 ; Sinusitis J32.9 and Mood disorder F39 [place] [address] [place] [address] 25377- 8671 Aug, Lupus erythematosus L93.0 [place] [address], [place] [address]- 1292 14 Aug, 2015 [facility] [id number] [place] [address] 43948- 4834 07 Aug, 2015 [facility] [id number] [place] [address] 58115- 7991 25 Jul, 2015 Diabetes type 2, controlled E11.9 [facility] [id number] [place] [address] 59039 2546 Jul, Mood disorder F39 and Depression F32.9 [facility] [id number] [place] [address] 42196- 6311 Jul, Lupus erythematosus L93.0 and Diabetes type 2, controlled E11.9 [facility] [id number] [place] [address] 51014- 3024 Jul, Mood disorder F39 and Anxiety F41.9 [facility] [id number] [place] [address] 05883- 9289 Jul, [facility] [address] [place] [address] 61699- 8535 Jul, [facility] [address] [place] [address] 80354- 8887 Jun, Mood disorder F39 and Anxiety F41.9 [facility] [address] [place] [address] 69041- 2091 Jun, Mood disorder F39 [facility] [address] [place] [address] 05509- 2544 18 Jun, 2015 [facility] [id number] [place] [address] 71661- 1458 15 Jun, 2015 [facility] [address] [place] [address] 56010- 4214 08 Jun, 2015 Mood disorder F39 [facility] [address] [place] [address] 60206- 4492 Jun, [facility] [address], [place] [address]- 6163 May, [facility] [id number] [place] [address] 91797- 2376 May, [facility] [id number] [place] [address] 33927- 2850 May, [facility] [id number] [place] [address] 98555- 8440 May, [facility] [id number] [place] [address] 48656- 1645 May, Anxiety F41.9 ; Dermatomyositis M33.90 and Diabetes type 2, controlled E11.9 [facility] [id number] [place] [address] 80622 -1874 May, Sinusitis J32.9 and Cough R05 [facility] [id number] [place] [address] 52913- 3496 May, Mood disorder F39 [facility] [id number] [place] [address] 50780- 3065 May, Adjustment disorder with mixed anxiety and depressed mood F43.23 [facility] [address], [place] [address]- 7690 Apr, [facility] [id number] [place] [address] 50317- 4872 Apr, [facility] [address] [place] [address] 37440- 1915 Apr, Generalized anxiety disorder F41.1 and Mood disorder F39 [facility] [id number] [place] [address] 30595- 3154 Mar, [facility] [address] [place] [address] 49767- 9265 Mar, [facility] [id number] [place] [address] 37619- 0008 Mar, [facility] [id number] [place] [address] 75400- 8037 Mar, Mood disorder F39 [facility] [id number] [place] [address] 40891- 7639 Feb, [facility] [id number] [place] [address] 10115- 5821 Feb, Diabetes E11.9 and Bronchitis J40 [facility] [id number] [place] [address] 48602- 1684 Feb, [facility] [address] 91533- 9658 Feb, [facility] [id number] [place] [address] 11358- 8268 Feb, Major depression, recurrent, full remission F33.42 and KELLY ( generalized anxiety disorder) F41.1 [facility] [id number] [place] [address] 80849- 7152 Feb, [facility] [id number] [place] [address] 28406- 3930 Feb, Single major depressive episode, in partial or unspecified remission F32.5 [facility] [id number] [place] [address] 77147- 9650 Jan, Fatigue 780.79 [facility] [id number] [place] [address] 85212- 4228 Jan, [facility] [id number] [place] [address] 24361- 2511 Jan, Diabetes with other specified manifestations, type II or unspecified type, not stated as uncontrolled 250.80 [facility] [id number] [place] [address] 32343- 6642 Jan, [facility] [id number] [place] [address] 04269- 6953 Dec, Hot flashes 627.2 ; Memory loss 780.93 and Joint pain 719.40 [place] [id number] [place] [address] 10586- 1927 Dec, Major depression, recurrent 296.30 ; Generalized anxiety disorder 300.02 ; Adjustment disorder with depressed mood 309.0 and No condition on Raymond II V71.09 [place] [id number] [place] [address] 15224- 3735 Dec, [place] [id number] [place] [address] 81977- 3877 Nov, Cognitive and neurobehavioral dysfunction 294.9 ; Major depressive disorder, recurrent episode, moderate degree 296.32 and Anxiety state , unspecified 300.00 [place] [id number] [place] [address] 59342- 7102 Nov, [place] [id number] [place] [address] 09116- 1156 Nov, Bronchitis 490 and Diabetes with other specified manifestations, type II or unspecified type, not stated as uncontrolled 250.80 [place] [id number] [place] [address] 15825- 5312 Nov, Major depressive disorder, recurrent episode, moderate 296.32 and Anxiety disorder, unspecified 300.00 [place] [id number] [place] [address] 41409- 6473 Nov, Anxiety, generalized 300.02 ; Intermittent explosive disorder 312.34 ; No condition on Raymond II V71.09 and No condition on axis III V71.09 [place] [id number] [place] [address] 06969- 2085 Oct, Diabetes with other specified manifestations, type II or unspecified type, not stated as uncontrolled 250.80 ; Urinary tract infection, site not specified 599.0 and Bronchitis [id number] [place] [address] 77907- 1407 Oct, Intermittent explosive disorder 312.34 ; Bipolar 1 disorder , depressed, moderate 296.52 ; Major depression, chronic 296.20 ; No condition on Raymond II V71.09 and No condition on axis III V71.09 [facility] [id number] [place] [address] 48948- 5065 Oct, Major depressive disorder, recurrent episode, moderate 296.32 ; Anxiety state 300.00 ; Cognitive decline 294.9 and No condition on Raymond II V71.09 [facility] [id number] [place] [address] 75657- 5816 Oct, [place] [id number] [place] [address] 68979- 4406 Oct, Major depressive disorder, recurrent episode, moderate 296.32 ; Anxiety disorder, unspecified 300.00 and Persistent disorder of initiating or maintaining sleep 307.42 [place] [id number] [place] [address] 60604- 6642 September, Diabetes with other specified manifestations, type II or unspecified type, not stated as uncontrolled 250.80 ; Memory loss 780.93 and Cognitive complaints 799.59 [place] [id number] [place] [address] 06198- 3954 September, No condition on Raymond II V71.09 ; Major depression, recurrent 296.30 and Persistent mood [affective] disorder, unspecified 296.90 [place] [address] [id number] [address] Aug, [facility] [id number] [place] [address] 75735- 9518 Aug, [place] [id number] [place] [address] 83099- 8629 Aug, [place] [id number] [place] [address] 08859- 7542 Jul, [facility] [id number] [place] [address] 10740- 0923 Jul, [facility] [id number] [place] [address] 51562- 9818 Jul, 2014 [facility] [place] [facility] [address] [id number] [place] [address] Jul, 2014 [facility] [place] [facility] [address] [facility] [id number] [place] [address] Jul, [facility] [place] [facility] [address] [facility] [id number] [place] [address]3 Jun, 2014 [facility] [place] [facility] [address] [facility] [id number] [place] [address] Jun, 2014 [facility] [place] [facility] [address] [id number] [place] [address] Jun, 2014 [facility] [place] [facility] [address] [facility] [id number] [place] [address] 59[address] Jun, 2014 [facility] [place] [facility] [address] [facility] [id number] [place] [address] 9636 Jun, 2014 [facility] [place] [facility] [address] [facility] [id number] [place] [address] Jun, 2014 [facility] [place] [facility] [address] [facility] [id number] [place] [address] 4[address] Jun, 2014 [facility] [place] [facility] [address] [facility] [id number] [place] [address]- 2489 Jun, 2014 [facility] [place] [facility] [address] [facility] [id number] [place] [address]- 9327 Jun, 2014 [facility] [place] [facility] [address] [facility] [id number] [place] [address]- 4326 Jun, 2014 [facility] [place] [facility] [address] [facility] [id number] [place] [address]- 1605 Jun, 2014 [facility] [place] [facility] [address] [facility] [id number] [place] [address]- 6365 Jun, 2014 [facility] [place] [facility] [address] [facility] [id number] [place] [address]- 0444 Jun, [facility] [place] [facility] [address] [id number] [place] [address] 7301 May, [facility] [place] [facility] [address] [id number] [place] [address]- 3873 May, [facility] [place] [facility] [address] [id number] [place] [address]- 7835 Apr, [facility] [place] [facility] [address] [id number] [place] [address]- 6753 Apr, [facility] [place] [facility] [address] [id number] [place] [address]- 3016 Apr, [facility] [place] [facility] [address] [id number] [place] [address]- 2234 Apr, [facility] [place] [facility] [address] [id number] [place] [address]- 9342 Apr, [facility] [place] [facility] [address] [id number] [place] [address]- 4789 Apr, [facility] [place] [facility] [address] [id number] [place] [address]- 9581 Apr, [facility] [place] [facility] [address] [id number] [place] [address]- 0726 Apr, [facility] [place] [facility] [address] [id number] [place] [address]- 3999 Apr, [facility] [place] [facility] [address] [id number] [place] [address]- 7513 Apr, [facility] [place] [facility] [address] [id number] [place] [address]- 2384 Apr, [facility] [place] [facility] [address] [id number] [place] [address]- 8422 Apr, [facility] [place] [facility] [address] [id number] [place] [address]- 4427 Apr, [facility] [place] [facility] [address] [id number] [place] [address]- 6054 Apr, [facility] [place] [facility] [address] [id number] [place] [address]- 5508 Apr, [facility] [place] [facility] [address] [id number] [place] [address]- 8283 Apr, [facility] [place] [facility] [address] [id number] [place] [address]- 4837 Apr, [facility] [place] [facility] [address] [id number] [place] [address]- 3515 Apr, [facility] [place] [facility] [address] [id number] [place] [address]- 3398 Apr, [facility] [place] [facility] [address] [id number] [place] [address]- 7335 Apr, [facility] [place] [facility] [address] [id number] [place] [address]- 1846 Mar, [facility] [place] [facility] [address] [id number] [place] [address]- 3531 Mar, [facility] [place] [facility] [address] [id number] [place] [address]- 0490 Mar, [facility] [place] [facility] [address] [facility] [id number] [place] [address]- 0681 Mar, [facility] [place] [facility] [address] [id number] [place] [address]- 1647 Mar, [facility] [place] [facility] [address] [id number] [place] [address]- 7732 Mar, [facility] [place] [facility] [address] [id number] [place] [address]- 5906 Mar, [facility] [place] [facility] [address] [id number] [place] [address]- 5373 Mar, [facility] [place] [facility] [address] [id number] [place] [address]- 4749 Mar, [facility] [place] [facility] [address] [id number] [place] [address]- 1567 Mar, [facility] [place] [facility] [address] [id number] [place] [address]- 6687 Mar, [facility] [place] [facility] [address] [id number] [place] [address]- 6460 Mar, [facility] [place] [facility] [address] [id number] [place] [address]- 1944 Mar, [facility] [place] [facility] [address] [id number] [place] [address]- 6512 Feb, [facility] [place] [facility] [address] [id number] [place] [address]- 7908 Feb, [facility] [place] [facility] [address] [id number] [place] [address]- 5989 Feb, [facility] [place] [facility] [address] [id number] [place] [address]- 5704 Feb, [facility] [place] [facility] [address] [id number] [place] [address]- 7869 Feb, [facility] [place] [facility] [address] [id number] [place] [address]- 6930 Feb, [facility] [place] [facility] [address] [id number] [place] [address]- 7568 Feb, [facility] [place] [facility] [address] [id number] [place] [address]- 5931 Feb, [facility] [place] [facility] [address] [id number] [place] [address]- 3929 Feb, [facility] [place] [facility] [address] [id number] [place] [address]- 7522 Feb, [facility] [place] [facility] [address] [id number] [place] [address]- 5737 Feb, [facility] [place] [facility] [address] [id number] [place] [address]- 0398 Feb, [facility] [place] [facility] [address] [id number] [place] [address]- 8032 Feb, [facility] [place] [facility] [address] [id number] [place] [address]- 4892 Feb, [facility] [place] [facility] [address] [id number] [place] [address]- 7896 Feb, [facility] [place] [facility] [address] [id number] [place] [address]- 8535 Jan, [facility] [place] [facility] [address] [id number] [place] [address]- 8900 08 Jan, 2014 [facility] [place] [facility] [address] [id number] [place] [address]- 3836 Jan, [facility] [place] [facility] [address] [id number] [place] [address]- 4546 Jan, [facility] [place] [facility] [address] [id number] [place] [address]- 5292 Jan, [facility] [place] [facility] [address] [id number] [place] [address]- 5738 Dec, [facility] [place] [facility] [address] [id number] [place] [address]- 8349 Dec, [facility] [place] [facility] [address] [id number] [place] [address]- 6364 Dec, [facility] [place] [facility] [address] [id number] [place] [address]- 7200 Dec, [facility] [place] [facility] [address] [id number] [place] [address]- 1471 Nov, [facility] [place] [facility] [address] [id number] [place] [address]- 9362 Nov, [facility] [place] [facility] [address] [id number] [place] [address]- 7477 Nov, [facility] [place] [facility] [address] [id number] [place] [address]- 7454 Nov, 2013 [facility] [address] [id number] [place] [address]- 5361 Nov, 2013 [facility] [place] [facility] [address] [id number] [place] [address]- 6435 Nov, 2013 [facility] [place] [facility] [address] [id number] [place] [address]- 7610 Nov, 2013 [facility] [place] [facility] [address] [id number] [place] [address]- 9262 Nov, [facility] [place] [facility] [address] [id number] [place] [address]- 7515 Nov, [facility] [place] [facility] [address] [id number] [place] [address]- 6002 Nov, [facility] [address] [id number] [place] [address]- 0507 Oct, [facility] [place] [facility] [address] [id number] [place] [address]- 7151 Oct, [facility] [place] [facility] [address] [id number] [place] [address]- 4781 September, [facility] [place] [facility] [address] [id number] [place] [address]- 7803 September, [facility] [place] [facility] [address] [id number] [place] [address]- 5712 September, [facility] [place] [facility] [address] [id number] [place] [address]- 3896 September, [facility] [place] [facility] [address] [id number] [place] [address]- 1276 16 Aug, 2013 [facility] [place] [facility] [address] [id number] [place] [address]- 9374 Aug, [facility] [place] [facility] [address] [id number] [place] [address]- 9646 Aug, [facility] [place] [facility] [address] [id number] [place] [address]- 3206 24 Jul, 2013 [facility] [place] [facility] [address] [id number] [place] [address] 24 Jul, 2013 [facility] [place] [facility] [address] [id number] [place] [address]- 3509 14 Jul, 2013 [facility] [place] [facility] [address] [id number] [place] [address]- 2178 14 Jul, 2013 [facility] [place] [facility] [address] [id number] [place] [address]- 9534 May, [facility] [place] [facility] [address] [id number] [place] [address]- 2045 May, [facility] [place] [facility] [address] [id number] [place] [address]- 8679 May, [facility] [place] [facility] [address] [id number] [place] [address]- 6497 15 Mar, 2013 [facility] [place] [facility] [address] [id number] [place] [address]- 2203 15 Mar, 2013 [facility] [place] [facility] [address] [id number] [place] [address]- 5078 Mar, [facility] [place] [facility] [address] [id number] [place] [address]- 1031 Mar, [facility] [place] [facility] [address] [id number], [place] [address]- 2801 16 Feb, 2013 [facility] [place] [facility] [address] [id number] [place] [address]229 16 Feb, 2013 [facility] [place] [facility] [address] [id number] [place] [address]- 5999 04 Feb, 2013 [facility] [place] [facility] [address] [id number], [place] [address]- 5588 16 Jan, 2013 [facility] [place] [facility] [address] [id number], [place] [address]- 6115 Jan, [facility] [address] [id number] [place] [address]- 3049 Jan, [facility] [place] [facility] [address] [id number] [place] [address]- 0919 Dec, [facility] [address] [id number] [place] [address]- 2774 Dec, [facility] [place] [facility] [address] [id number] [place] [address]- 0082 Dec, [facility] [place] [facility] [address] [id number] [place] [address]- 0680 Dec, [facility] [place] [facility] [address] [id number] [place] [address]- 9164 Nov, [facility] [address] [id number] [place] [address]- 1169 Oct, [facility] [place] [facility] [address] [id number] [place] [address]- 9912 Oct, [facility] [address] [id number] [place] [address]- 3915 September, [facility] [place] [facility] [address] [id number] [place] [address]- 1324 September, [facility] [address] [id number] [place] [address]- 8602 September, [facility] [place] [facility] [address] [id number] [place] [address]- 2632 Aug, [facility] [place] [facility] [address] [id number] [place] [address]- 5794 Aug, [facility] [place] [facility] [address] [id number] [place]64 Aug, [facility] [place] [facility] [address] [id number] [place] [address]- 2773 Aug, [facility] [place] [facility] [address] [id number] [place] [address]- 1716 26 Jul, 2012 [facility] [address] [id number] [place] [address]- 7665 25 Jul, 2012 [facility] [place] [facility] [address] [id number] [place] [address]- 9166 21 Jul, 2012 [facility] [address] [id number] [place] [address]- 4983 15 Jul, 2012 [facility] [place] [facility] [address] [id number] [place] [address]- 8493 14 Jul, 2012 [facility] [address] [id number] [place] [address]- 0492 13 Jul, 2012 [facility] [place] [facility] [address] [id number] [place] [address]- 7594 13 Jul, 2012 [facility] [place] [facility] [address] [id number] [place] [address]- 4224 06 Jun, 2012 [facility] [address] [id number] [place] [address]- 6567 Jun, [facility] [place] [facility] [address] [id number] [place] [address]- 6518 05 Jun, 2012 [facility] [place] [facility] [address] [id number] [place] [address]- 3046 Jun, [facility] [place] [facility] [address] [id number] [place] [address]- 0642 May, [facility] [place] [facility] [address] [id number] [place] [address]- 5376 May, [facility] [place] [facility] [address] [id number] [place] [address]- 5084 May, [facility] [place] [facility] [address] [id number] [place] [address]- 4155 May, [facility] [place] [facility] [address] [id number] [place] [address]- 2849 May, [facility] [place] [facility] [address] [id number] [place] [address]- 8426 Apr, [facility] [place] [facility] [address] [id number] [place] [address]- 1640 Apr, [facility] [place] [facility] [address] [facility] [id number] [place] [address]- 3726 Mar, [facility] [place] [facility] [address] [id number] [place] [address]- 1464 Mar, [facility] [place] [facility] [address] [id number] [place] [address]- 3336 Mar, [facility] [place] [facility] [address] [id number] [place] [address]- 6101 Mar, [facility] [place] [facility] [address] [id number] [place] [address]- 5025 Mar, [facility] [place] [facility] [address] [id number], [place] [address]- 3829 Mar, [facility] [place] [facility] [address] [id number], [place] [address]- 6054 Mar, [facility] [place] [facility] [address] [id number] [place] [address]- 1229 Mar, [facility] [place] [facility] [address] [id number], [place] [address]- 0720 Mar, [facility] [place] [facility] [address] [id number], [place] [address]- 1124 Mar, [facility] [place] [facility] [address] [id number], [place] [address]- 5643 Feb, [facility] [place] [facility] [address] [id number], [place] [address]- 4747 Feb, [facility] [place] [facility] [address] [id number], [place] [address]- 2328 Feb, [facility] [place] [facility] [address] [id number] [place] [address]- 9879 Feb, [facility] [place] [facility] [address] [id number] [place] [address]- 2073 Feb, [facility] [place] [facility] [address] [id number] [place] [address]- 7236 Feb, [facility] [place] [facility] [address] [id number] [place] [address]- 1524 Feb, [facility] [place] [facility] [address] [id number] [place] [address]- 4007 Jan, [facility] [place] [facility] [address] [id number] [place] [address]- 3617 Jan, [facility] [place] [facility] [address] [id number] [place] [address]- 4363 Dec, [facility] [place] [facility] [address] [id number] [place] [address]- 0959 Dec, [facility] [place] [facility] [address] [id number] [place] [address]- 3840 Dec, [facility] [place] [facility] [address] [id number] [place] [address]- 7491 Dec, [facility] [place] [facility] [address] [id number] [place] [address]- 4156 16 Dec, 2011 [facility] [place] [facility] [address] [id number] [place] [address]- 9412 Dec, [facility] [place] [facility] [address] [id number] [place] [address]- 7508 Nov, [facility] [place] [facility] [address] [id number] [place] [address]- 3857 Nov, [facility] [place] [facility] [address] [id number] [place] [address]- 8173 Nov, [facility] [place] [facility] [address] [id number] [place] [address]- 4085 Nov, [facility] [address] [id number], [place] [address]- 2641 September, [facility] [address] [id number] [place] [address]- 9136 September, [facility] [address] [facility] [id number] [place] [address]- 3796 September, [facility] [address] [facility] [id number] [place] [address]- 8838 Jul, [facility] [address] [id number] [place] [address]- 4478 Jun, [facility] [address] [id number] [place] [address]- 3396 Jun, [facility] [address] [facility] [id number] [place] [address]- 7636 Jun, [facility] [address] [facility] [id number], [place] [address]- 2519 Apr, [facility] [address] [facility] [id number], [place] [address]- 8630 Mar, [facility] [address] [facility] [id number][place] 2777 Mar, [facility] [address] [facility] [id number] 8437 Feb, [facility] [address] [facility] [id number], [place] [address]- 3512 31 Feb, 2011 [facility] [address] [facility] [id number], [place] [address]- 9846 Feb, [facility] [address] [facility] [id number], [place] [address]- 7164 10 Jul, 2009 [facility] [address] [facility] [id number][place] 3879 Feb, IMMUNIZATIONS No Known Immunizations SOCIAL HISTORY Never Assessed REASON FOR VISIT med refill PLAN OF CARE VITAL SIGNS MEDICATIONS Medication Instructions Dosage Frequency Start Date End Date Duration Status Methotrexate 2.5 MG Orally 1 time per week 6 Active RESULTS No Results PROCEDURES No Known [...]
--- OUTSIDE RECORDS SUMMARY | 2018-02-02 23:51 | XMS REPORT ---
Author Author ROBIN PAGAN [facility] Address [address] [place] [address] Care Team Providers Care Digital Artist Name Role Phone ROBIN PAGAN Unavailable PROBLEMS Type Condition ICD9-CM Code BPA86-DX Code Onset Dates Condition Status SNOMED Code Problem Plantar wart of both feet B07.0 Active [id number] Problem Controlled type 2 diabetes mellitus without complication, without long -term current use of insulin E11.9 Active 398106290 Problem Lumbago with sciatica, left side M54.42 Active 380076935 Problem Lumbago with sciatica, right side M54.41 Active 307131343 Problem Morbid (severe) obesity due to excess calories E66.01 Active 036683240 Problem Body mass index (BMI) of 45.0-49.9 in adult Z68.42 Active 228139421 Problem Tachycardia with heart rate 121-140 beats per minute R00.0 Active 9058848 Problem Dermatomyositis M33.90 Active 847119998 Problem Enlarged thyroid gland E04.9 Active 3396787 Problem Allergic rhinitis due to pollen J30.1 Active 92527360 Problem Mood disorder F39 Active 72067494 Problem Menopause Z78.0 Active 442757685 Problem Anxiety F41.9 Active 62490609 Problem Other chronic pain G89.29 Active 63075458 Problem Diabetes type 2, controlled E11.9 Active 08449739 Problem Arthritis M19.90 Active 8458762 Problem Osteoarthritis of right knee, unspecified osteoarthritis type M17.9 Active 061899146 Problem Plantar warts B07.0 Active 86111606 ALLERGIES Substance Reaction Event Type Date Status Fluarix Quadrivalent vomiting Drug Allergy Jul, Active Zoloft makes very angry Drug Allergy Jul, Active Fluarix vomiting Drug Allergy Jul, Active Aspirin rash Drug Allergy Jul, Active Latex, Natural Rubber rash Non Drug Allergy Jul, Active ENCOUNTERS Encounter Location Date Diagnosis [facility] [address] [address] Dec, [facility] [id number] [place] [address] 09168- 4410 Nov, [facility] [address] [address] Nov, [facility] [id number] [place] [address] 44029- 7948 Nov, Mood disorder F39 [facility] [id number] [place] [address] 97785- 8845 Nov, Lumbago with sciatica, right side M54.41 and Other chronic pain G89.29 [facility] [address] [address] Nov, Acute right ankle pain M25.571 [facility] [id number] [place] [address] 57394- 2364 Nov, [facility] [id number] [place] [address] 06806- 3353 Oct, [facility] [id number] [place] [address] 75067- 2872 Oct, Plantar wart of both feet B07.0 [facility] [address] [address] Oct, [facility] [address] [address] 3164 Oct, Acute right ankle pain M25.571 and Plantar wart of both feet B07.0 [facility] [id number] [address] 2307 September, Other chronic pain G89.29 [facility] [address] [address] 6313 September, Other chronic pain G89.29 [facility] [id number] [place] [address] 94013- 3293 September, Other chronic pain G89.29 [facility] [address] 03556- 0135 Aug, Mood disorder F39 [facility] [address] 57071- 9578 Aug, Other chronic pain G89.29 ; Controlled type 2 diabetes mellitus without complication, without long-term current use of insulin E11.9 ; Low back pain M54.5 and Tinea corporis B35.4 [facility] [address] 94139- 0670 Aug, Mood disorder F39 and Anxiety F41.9 [facility] [address] 66910- 9334 Aug, Mood disorder F39 and Anxiety F41.9 [facility] [address] 49610- 6475 Jul, [facility] [place] [address] 23513 -[address]202 Jul, Scabies B86 and BMI 45.0-49.9, adult Z68.42 [facility] [address] 90231- 1177 Jul, [facility] [address] 85037- 1368 Jul, Mood disorder F39 and Anxiety F41.9 [facility] [address] 76631- 9419 Jul, [facility] [place] [address] 43131 -1847 Jun, Bronchitis J40 ; Dark urine R82.99 and BMI 45.0-49.9, adult Z68.42 [facility] [address] 99030- 5190 14 Jun, 2017 Acute pain of right shoulder M25.511 and Acute pain of right knee M25.561 [place] [id number] [place] [address] 89911- 0209 May, BMI 40.0-44.9, adult Z68.41 ; Controlled type 2 diabetes mellitus without complication, without long-term current use of insulin E11.9 ; Muscle cramping R25.2 ; Hot flashes R23.2 ; Mood disorder F39 ; Anxiety F41.9 and Morbid (severe) obesity due to excess calories E66.01 [address] [id number] [place] [address] 90709- 7863 May, BMI 40.0-44.9, adult Z68.41 ; Controlled type 2 diabetes mellitus without complication, without long-term current use of insulin E11.9 ; Muscle cramping R25.2 and Hot flashes R23.2 [place] [id number] [place] [address] 41508- 0845 May, Tachycardia with heart rate 121-140 beats per minute R00.0 ; Morbid (severe) obesity due to excess calories E66.01 ; Diabetes type 2, controlled E11.9 and Enlarged thyroid gland E04.9 [place] [id number] [place] [address] 00662- 3085 May, Encounter for well woman exam with [...] Dysuria R30.0 and Screening breast examination Z12.31 [facility] [id number] [place] [address] 51484- 6577 Apr, Mood disorder F39 ; Other chronic pain G89.29 and Anxiety F41.9 [facility] [id number] [place] [address] 15827- 1324 Apr, Lumbago with sciatica, left side M54.42 and Other chronic pain G89.29 [facility] [id number] [place] [address] 30079- 2867 Apr, Lupus erythematosus L93.0 [facility] [address] 77452- 3736 Mar, Plantar wart of both feet B07.0 [facility] [address] 28199- 8666 Mar, Lupus erythematosus L93.0 and Sinus drainage J34.89 [facility] [id number] [place] [address] 50189- 8827 Mar, Mood disorder F39 ; Other chronic pain G89.29 and Anxiety F41.9 [facility] [address] 63673- 6057 Mar, Mood disorder F39 ; Arthritis M19.90 and Plantar warts B07.0 [facility] [address] 68411- 4004 Feb, Lupus erythematosus L93.0 [facility] [id number] [place] [address] 87910- 8617 Feb, Other chronic pain G89.29 [facility] [id number] [place] [address] 48030- 4303 Feb, Mood disorder F39 and Anxiety F41.9 [facility] [address] 73131- 5748 Jan, [facility] [address] 18800- 0508 Jan, Mood disorder F39 [facility] [id number] [place] [address] 91744- 6968 Dec, Nail, ingrown L60.0 [facility] [id number] [place] [address] 10201- 7280 Dec, Nail, ingrown L60.0 [facility] [id number] [place] [address] 73425- 0225 Nov, Mood disorder F39 and Anxiety F41.9 [facility] [address] 20723- 8957 Nov, Sinus drainage J34.89 ; Hot flashes R23.2 ; Anxiety F41.9 and Diabetes type 2, controlled E11.9 [facility] [address] 30570- 7186 Nov, Nail, ingrown L60.0 [facility] [id number] [place] [address] 02660- 9946 Oct, Anxiety F41.9 and Mood disorder F39 [facility] [id number] [place] [address] 98886- 2704 Oct, Nail, ingrown L60.0 and Anxiety F41.9 [facility] [address] 17573- 6184 Oct, Lupus erythematosus L93.0 [facility] [id number] [place] [address] 89713- 5215 September, [facility] [id number] [place] [address] 82911- 3532 September, [facility] [id number] [place] [address] 48630- 1659 September, Lupus erythematosus L93.0 [facility] [id number] [place] [address] 24276- 5611 Aug, [facility] [id number] [place] [address] 15003- 5256 Aug, Mood disorder F39 and Anxiety F41.9 [facility] [id number] [place] [address] 04734- 0547 Aug, Lupus erythematosus L93.0 ; Diabetes type 2, controlled E11.9 and Localized edema R60.0 [facility] [id number] [place] [address] 20719- 7527 Aug, [facility] [id number] [place] [address] 97492- 6790 Jul, Anxiety F41.9 and Mood disorder F39 [facility] [id number] [place] [address] 14077- 6813 Jul, Diabetes type 2, controlled E11.9 [facility] [id number] [place] [address] 21785- 7016 Jun, Anxiety F41.9 [facility] [id number] [place] [address] 85324- 6770 May, [facility] [id number] [place] [address] 84315- 2999 May, [facility] [id number] [place] [address] 67953- 5911 May, Nausea R11.0 ; Other chronic pain G89.29 and Pain in right knee M25.561 [facility] [id number] [place] [address] 62532- 7143 May, [facility] [id number] [place] [address] 32475- 5329 Apr, Tear of medial meniscus of right knee, current, unspecified tear type, subsequent encounter S83.241D and Tear of lateral meniscus of right knee, current, unspecified tear type, subsequent encounter S83.281D [facility] [id number] [place] [address] 72222- 1152 Apr, Anxiety F41.9 and Mood disorder F39 [facility] [address] [place] [address] 91033- 0574 Apr, Anxiety F41.9 [facility] [id number] [place] [address] 70556- 5767 05 Apr, 2016 [facility] [id number] [place] [address] 00021- 5319 Mar, [facility] [id number] [place] [address] 66260- 8270 Mar, Lupus erythematosus L93.0 and Diabetes type 2, controlled E11.9 [facility] [id number] [place] [address] 20488- 8063 Mar, Mood disorder F39 [facility] [id number] [place] [address] 17208- 1892 Mar, Tear of lateral meniscus of right knee, current, unspecified tear type, initial encounter S83.281A and Osteoarthritis of right knee, unspecified osteoarthritis type M17.9 [facility] [id number] [place] [address] 95524- 1553 Mar, [facility] [id number] [place] [address] 78893- 4994 Feb, Mood disorder F39 [facility] [id number] [place] [address] 61675- 5567 Feb, Rash R21 [facility] [id number] [place] [address] 04911- 7612 Feb, [facility] [id number] [place] [address] 54928- 1746 Jan, Other chronic pain G89.29 and Muscle spasm M62.838 [facility] [id number] [place] [address] 11413- 5647 Jan, Mood disorder F39 [facility] [id number] [place] [address] 73507- 6788 Jan, Pain in right knee M25.561 ; Other chronic pain G89.29 and Muscle spasm M62.838 [facility] [address], [place] [address]- 8367 Dec, [facility] [id number] [place] [address] 98886- 3065 Dec, [facility] [id number] [place] [address] 73120- 6829 Nov, [facility] [id number] [place] [address] 87982- 1545 Nov, Mood disorder F39 [facility] [id number] [place] [address] 89002- 0475 Nov, Diabetes type 2, controlled E11.9 ; Bronchitis J40 ; Edema, unspecified type R60.9 ; Weight gain R63.5 and Right knee pain, unspecified chronicity M25.561 [facility] [id number] [place] [address] 52955- 3905 Oct, Mood disorder F39 [facility] [id number] [place] [address] 77602- 7919 Oct, Lupus erythematosus L93.0 and Bilateral edema of lower extremity R60.0 [facility] [id number] [place] [address] 94807- 3206 Oct, Mood disorder F39 and Anxiety F41.9 [facility] [id number] [place] [address] 72978- 1775 September, Mood disorder F39 ; Anxiety F41.9 and Anger reaction R45.4 [facility] [id number] [place] [address] 15888- 2448 September, Diabetes type 2, controlled E11.9 ; Edema, unspecified type R60.9 and Fatigue, unspecified type R53.83 [facility] [address] [place] [address] 75518- 0357 Aug, Mood disorder F39 and Generalized anxiety disorder F41.1 [facility] [id number] [place] [address] 74321- 7272 Aug, Diabetes type 2, controlled E11.9 ; Sinusitis J32.9 and Mood disorder F39 [facility] [id number] [place] [address] 36176- 2383 15 Aug, 2015 Lupus erythematosus L93.0 [facility] [id number] [place] [address] 56254- 4713 14 Aug, 2015 [facility] [id number] [place] [address] 25459- 4148 Aug, [facility] [id number] [place] [address] 34712- 6584 Jul, Diabetes type 2, controlled E11.9 [facility] [id number] [place] [address] 48103- 4290 Jul, Mood disorder F39 and Depression F32.9 [facility] [id number] [place] [address] 04566- 7798 Jul, Lupus erythematosus L93.0 and Diabetes type 2, controlled E11.9 [facility] [id number] [place] [address] 49304- 8560 Jul, Mood disorder F39 and Anxiety F41.9 [facility] [address] [place] [address] 05728- 2600 Jul, [facility] [address] [place] [address] 70983- 8193 Jul, [facility] [id number] [place] [address] 65161- 7020 Jun, Mood disorder F39 and Anxiety F41.9 [facility] [id number] [place] [address] 60211- 5989 Jun, Mood disorder F39 [facility] [id number] [place] [address] 41936- 9710 18 Jun, 2015 [facility] [id number] [place] [address] 95159- 3475 15 Jun, 2015 [facility] [address], [place] [address]- 1268 08 Jun, 2015 Mood disorder F39 [facility] [address] [place] [address] 03642- 3224 Jun, [facility] [address] [place] [address] 30947- 3444 May, [facility] [id number] [place] [address] 07530- 4096 May, [facility] [address] [place] [address] 51359- 4814 May, [facility] [id number] [place] [address] 75869- 1092 May, [facility] [id number] [place] [address] 87834- 6226 May, Anxiety F41.9 ; Dermatomyositis M33.90 and Diabetes type 2, controlled E11.9 [facility] [address] [place] [address] 84356 -2425 May, Sinusitis J32.9 and Cough R05 [facility] [address], [place] [address]- 0504 May, Mood disorder F39 [facility] [id number] [place] [address] 41396- 3151 May, Adjustment disorder with mixed anxiety and depressed mood F43.23 [facility] [address], [place] [address]- 3639 Apr, [facility] [id number] [place] [address] 20150- 7324 Apr, [facility] [address], [place] [address]- 0513 Apr, Generalized anxiety disorder F41.1 and Mood disorder F39 [facility] [address], [place] [address]- 5359 Mar, [facility] [id number] [place] [address] 52192- 2972 Mar, [facility] [id number] [place] [address] 19088- 0302 Mar, [facility] [id number] [place] [address] 07868- 5614 Mar, Mood disorder F39 [facility] [id number] [place] [address] 25643- 5270 Feb, [facility] [id number] [place] [address] 94030- 1094 Feb, Diabetes E11.9 and Bronchitis J40 [facility] [id number] [place] [address] 45622- 9870 Feb, [facility] [id number] [place] [address] 28577- 5435 Feb, [facility] [id number] [place] [address] 75255- 1456 Feb, Major depression, recurrent, full remission F33.42 and KELLY ( generalized anxiety disorder) F41.1 [facility] [id number] [place] [address] 17873- 1519 Feb, [facility] [id number] [place] [address] 04407- 5539 Feb, Single major depressive episode, in partial or unspecified remission F32.5 [facility] [address] [place] [address] 97059- 6955 Jan, Fatigue 780.79 [facility] [id number] [place] [address] 43446- 7332 Jan, [facility] [id number] [place] [address] 45434- 5565 Jan, Diabetes with other specified manifestations, type II or unspecified type, not stated as uncontrolled 250.80 [facility] [id number] [place] [address] 88478- 1818 Jan, [facility] [address] 84089- 3547 Dec, Hot flashes 627.2 ; Memory loss 780.93 and Joint pain 719.[address] 78998- 7032 Dec, Major depression, recurrent 296.30 ; Generalized anxiety disorder 300.02 ; Adjustment disorder with depressed mood 309.0 and No condition on Abercrombie II V71.[address] 91370- 0971 Dec, [address] 29802- 3248 Nov, Cognitive and neurobehavioral dysfunction 294.9 ; Major depressive disorder, recurrent episode, moderate degree 296.32 and Anxiety state , unspecified 300.00 [place] [id number] [place] [address] 33839- 5336 Nov, [facility] [place] [id number] [place] [address] 01779- 6547 Nov, Bronchitis 490 and Diabetes with other specified manifestations, type II or unspecified type, not stated as uncontrolled 250.80 [place] [id number] [place] [address] 20052- 4119 Nov, Major depressive disorder, recurrent episode, moderate 296.32 and Anxiety disorder, unspecified 300.00 [place] [id number] [place] [address] 56011- 7317 Nov, Anxiety, generalized 300.02 ; Intermittent explosive disorder 312.34 ; No condition on Abercrombie II V71.09 and No condition on axis III V71.09 [place] [id number] [place] [address] 12213- 0550 Oct, Diabetes with other specified manifestations, type II or unspecified type, not stated as uncontrolled 250.80 ; Urinary tract infection, site not specified 599.0 and Bronchitis [address] [id number] [place] [address] 61459- 3316 Oct, Intermittent explosive disorder 312.34 ; Bipolar 1 disorder , depressed, moderate 296.52 ; Major depression, chronic 296.20 ; No condition on Abercrombie II V71.09 and No condition on axis III V71.09 [place] [id number] [place] [address] 57692- 8479 Oct, Major depressive disorder, recurrent episode, moderate 296.32 ; Anxiety state 300.00 ; Cognitive decline 294.9 and No condition on Abercrombie II V71.09 [place] [id number] [place] [address] 59339- 5136 Oct, [place] [id number] [place] [address] 39162- 2872 Oct, Major depressive disorder, recurrent episode, moderate 296.32 ; Anxiety disorder, unspecified 300.00 and Persistent disorder of initiating or maintaining sleep 307.42 [place] [id number] [place] [address] 90885- 4031 September, Diabetes with other specified manifestations, type II or unspecified type, not stated as uncontrolled 250.80 ; Memory loss 780.93 and Cognitive complaints 799.[address] [place] [address] 74216- 2463 September, No condition on Abercrombie II V71.09 ; Major depression, recurrent 296.30 and Persistent mood [affective] disorder, unspecified 296.90 [place] [id number] [place] [address] 18312- 3830 Aug, [place] [id number] [place] [address] 54317- 1167 Aug, [place] [id number] [place] [address] 40027- 4892 Aug, [address] [place] [address]- 7132 09 Jul, 2014 [facility] [place] [facility] [address] [id number] [place] [address]- 8543 Jul, 2014 [facility] [place] [facility] [address] [id number] [place] [address]- 2633 Jul, 2014 [facility] [place] [facility] [address] [id number] [place] [address] Jul, 2014 [facility] [place] [facility] [address] [id number] [place] [address] Jul, 2014 [facility] [place] [facility] [address] [id number] [place] [address] Jun, 2014 [facility] [place] [facility] [address] [facility] [id number] [place] [address] Jun, 2014 [facility] [place] [facility] [address] [facility] [id number] [place] [address] Jun, 2014 [facility] [place] [facility] [address] [facility] [id number] [place] [address] Jun, 2014 [facility] [place] [facility] [address] [facility] [id number] [place] [address] Jun, 2014 [facility] [place] [facility] [address] [facility] [id number] [place] [address] Jun, 2014 [facility] [place] [facility] [address] [facility] [id number], [place] [address] Jun, 2014 [facility] [place] [facility] [address] [facility] [id number] [place] [address] Jun, 2014 [facility] [place] [facility] [address] [facility] [id number] [place] [address] Jun, 2014 [facility] [place] [facility] [address] [facility] [id number] [place] [address] Jun, 2014 [facility] [place] [facility] [address] [facility] [id number][place] [address] Jun, 2014 [facility] [address] [id number] [place] [address] Jun, [facility] [place] [facility] [address] [id number] [place] [address] Jun, [facility] [place] [facility] [address] [facility] [id number] [place] [address] May, [facility] [place] [facility] [address] [id number] [place] [address] May, [facility] [address] [id number] [place] [address] Apr, [facility] [place] [facility] [address] [id number] [place] [address]78 Apr, [facility] [address] [id number] [place] [address] 8[address] Apr, [facility] [place] [facility] [address] [id number] [place] [address] 3200 Apr, [facility] [place] [facility] [address] [id number] [place] [address] 4[address] Apr, [facility] [place] [facility] [address] [facility] [id number] [place] [address] 6173 Apr, [facility] [place] [facility] [address] [id number] [place] [address] 6643 Apr, [facility] [place] [facility] [address] [id number] [place] [address] 2543 Apr, [facility] [place] [facility] [address] [id number] [place] [address] 2585 Apr, [facility] [place] [facility] [address] [id number] [place] [address] 4602 Apr, [facility] [place] [facility] [address] [facility] [id number] [place] [address] Apr, [facility] [place] [facility] [address] [id number] [place] [address] 7556 Apr, [facility] [place] [facility] [address] [id number] [place] [address] 8096 Apr, [facility] [place] [facility] [address] [id number] [place] [address] 0082 Apr, [facility] [place] [facility] [address] [id number] [place] [address] 7884 Apr, [facility] [place] [facility] [address] [id number] [place] [address] 0943 Apr, [facility] [place] [facility] [address] [id number] [place] [address] 8357 Apr, [facility] [place] [facility] [address] [id number] [place] [address] 8963 Apr, [facility] [place] [facility] [address] [id number] [place] [address] 0132 Apr, [facility] [place] [facility] [address] [id number] [place] [address] 3647 Apr, [facility] [place] [facility] [address] [id number] [place] [address] 2475 Mar, [facility] [place] [facility] [address] [id number] [place] [address] 4494 Mar, [facility] [place] [facility] [address] [id number] [place] [address] 3944 Mar, [facility] [place] [facility] [address] [id number] [place] [address] 7158 Mar, [facility] [place] [facility] [address] [id number] [place] [address] 4115 Mar, [facility] [place] [facility] [address] [id number] [place] [address] 8903 Mar, [facility] [place] [facility] [address] [id number] [place] [address] 9747 Mar, [facility] [place] [facility] [address] [id number] [place] [address] 7078 Mar, [facility] [place] [facility] [address] [id number] [place] [address] 5003 Mar, [facility] [place] [facility] [address] [id number] [place] [address] Mar, [facility] [place] [facility] [address] [id number] [place] [address] 7981 Mar, [facility] [place] [facility] [address] [id number] [place] [address] 0000 Mar, [facility] [place] [facility] [address] [id number] [place] [address] 5408 Mar, [facility] [place] [facility] [address] [id number] [place] [address] 9502 Feb, [facility] [place] [facility] [address] [id number] [address] 2095 Feb, [facility] [place] [facility] [address] [id number], [place] [address] 8232 30 Feb, 2014 [facility] [place] [facility] [address] [id number][place] [address] 5838 Feb, [facility] [place] [facility] [address] [id number], [place] [address] 6120 Feb, [facility] [place] [facility] [address] [id number][place] [address] 9327 Feb, [facility] [place] [facility] [address] [id number], [place] [address] 3680 Feb, [facility] [place] [facility] [address] [id number] [address] 2239 Feb, [facility] [place] [facility] [address] [id number] [address] 8486 Feb, [facility] [place] [facility] [address] [id number] [place] [address] 1019 13 Feb, 2014 [facility] [place] [facility] [address] [id number] [place] [address] 2920 13 Feb, 2014 [facility] [place] [facility] [address] [id number] [place] [address]- 5471 Feb, [facility] [place] [facility] [address] [id number] [place] [address] 8802 10 Feb, 2014 [facility] [place] [facility] [address] [id number] [place] [address] 6869 Feb, [facility] [place] [facility] [address] [id number] [place] [address]- 2901 07 Feb, 2014 [facility] [place] [facility] [address] [id number] [place] [address] 5025 10 Jan, 2014 [facility] [place] [facility] [address] [id number] [place] [address]- 3524 08 Jan, 2014 [facility] [place] [facility] [address] [id number] [place] [address]- 1031 08 Jan, 2014 [facility] [place] [facility] [address] [id number] [place] [address]- 6119 08 Jan, 2014 [facility] [place] [facility] [address] [id number] [place] [address]- 6547 08 Jan, 2014 [facility] [place] [facility] [address] [id number] [place] [address] 8209 Dec, [facility] [place] [facility] [address] [id number] [place] [address] 0212 Dec, [facility] [place] [facility] [address] [id number] [place] [address]- 0813 Dec, [facility] [place] [facility] [address] [id number] [place] [address]- 0645 Dec, [facility] [place] [facility] [address] [id number] [place] [address] 5628 Nov, [facility] [place] [facility] [address] [id number] [place] [address]- 7941 Nov, 2013 [facility] [place] [facility] [address] [id number] [place] [address]- 2605 Nov, [facility] [place] [facility] [address] [id number] [place] [address] 4258 Nov, 2013 [facility] [place] [facility] [address] [id number] [place] [address]- 6711 Nov, [facility] [place] [facility] [address] [id number] [place] [address]- 5480 Nov, [facility] [place] [facility] [address] [id number] [place] [address]- 6247 Nov, [facility] [place] [facility] [address] [id number] [place] [address]- 3538 Nov, [facility] [place] [facility] [address] [id number] [place] [address]- 5128 Nov, [facility] [place] [facility] [address] [id number] [place] [address]- 8026 Nov, [facility] [place] [facility] [address] [id number] [place] [address]- 2628 Oct, [facility] [place] [facility] [address] [id number] [place] [address]- 9009 Oct, [facility] [place] [facility] [address] [id number] [place] [address]- 0818 September, [facility] [place] [facility] [address] [id number] [place] [address]- 3544 September, [facility] [place] [facility] [address] [id number] [place] [address]- 0710 September, [facility] [place] [facility] [address] [id number] [place] [address]- 0927 September, [facility] [place] [facility] [address] [id number] [address]- 1772 16 Aug, 2013 [facility] [place] [facility] [address] [id number] [place] [address]- 4365 14 Aug, 2013 [facility] [place] [facility] [address] [id number] [place] [address]- 7894 14 Aug, 2013 [facility] [place] [facility] [address] [id number] [place] [address]- 1600 24 Jul, 2013 [facility] [place] [facility] [address] [id number] [place] [address]- 8843 24 Jul, 2013 [facility] [place] [facility] [address] [id number] [place] [address]- 1908 Jul, [facility] [place] [facility] [address] [id number] [place] [address]- 8480 14 Jul, 2013 [facility] [place] [facility] [address] [id number] [place] [address]- 0084 May, [facility] [place] [facility] [address] [id number] [place] [address]- 5417 17 May, 2013 [facility] [place] [facility] [address] [id number] [place] [address]- 2592 17 May, 2013 [facility] [place] [facility] [address] [id number] [place] [address]- 8001 15 Mar, 2013 [facility] [place] [facility] [address] [id number][place] [address]- 4075 15 Mar, 2013 [facility] [place] [facility] [address] [id number], [place] [address]- 5378 13 Mar, 2013 [facility] [place] [facility] [address] [id number] [place] [address]- 8400 13 Mar, 2013 [facility] [place] [facility] [address] [id number] [address]- 0788 16 Feb, 2013 [facility] [place] [facility] [address] [id number] [place] [address]- 6493 16 Feb, 2013 [facility] [place] [facility] [address] [id number] [place] [address]- 2543 04 Feb, 2013 [facility] [address] [id number] [place] [address]- 5969 16 Jan, 2013 [facility] [address] [id number] [place] [address]- 3576 Jan, [facility] [address] [id number] [place] [address]- 9370 Jan, [facility] [address] [id number] [place] [address]- 2229 Dec, [facility] [address] [id number] [place] [address]- 8183 Dec, [facility] [address] [id number] [place] [address]- 5845 Dec, [facility] [address] [id number] [place] [address]- 4801 Dec, [facility] [address] [id number] [place] [address]- 9979 Nov, [facility] [address] [id number] [place] [address]- 9834 Oct, [facility] [address] [id number] [place] [address]- 1233 Oct, [facility] [address] [id number] [place] [address]- 5085 September, [facility] [address] [id number] [place] [address]- 7825 September, [facility] [place] [facility] [address] [id number] [place] [address]- 7352 September, [facility] [address] [id number] [place] [address]- 8626 Aug, [facility] [address] [id number] [place] [address]- 1674 Aug, [facility] [address] [id number] [place] [address]- 0653 17 Aug, 2012 [facility] [place] [facility] [address] [id number] [place] [address]- 2108 09 Aug, 2012 [facility] [address] [id number] [place] [address]- 0070 26 Jul, 2012 [facility] [place] [facility] [address] [id number] [place] [address]- 6376 25 Jul, 2012 [facility] [address] [id number] [place] [address]- 5822 21 Jul, 2012 [facility] [place] [facility] [address] [id number] [place] [address]- 1071 15 Jul, 2012 [facility] [address] [id number] [place] [address]- 7155 14 Jul, 2012 [facility] [place] [facility] [address] [id number] [place] [address]- 4936 13 Jul, 2012 [facility] [place] [facility] [address] [id number] [place] [address]- 9093 Jul, [facility] [place] [facility] [address] [id number] [place] [address]- 5749 06 Jun, 2012 [facility] [place] [facility] [address] [id number] [place] [address]- 8184 Jun, [facility] [place] [facility] [address] [id number] [place] [address]- 8247 05 Jun, 2012 [facility] [place] [facility] [address] [id number] [place] [address]- 1136 Jun, [facility] [place] [facility] [address] [id number] [place] [address]- 5801 May, [facility] [place] [facility] [address] [id number] [place] [address]- 4292 May, [facility] [place] [facility] [address] [id number] [place] [address]- 4881 May, [facility] [place] [facility] [address] [id number] [place] [address]- 8007 May, [facility] [place] [facility] [address] [id number] [place] [address]- 7247 May, [facility] [place] [facility] [address] [id number] [place] [address]- 8802 Apr, [facility] [place] [facility] [address] [id number] [place] [address]- 0268 Apr, [facility] [place] [facility] [address] [id number] [place] [address]- 8998 Mar, [facility] [place] [facility] [address] [id number] [place] [address]- 6808 Mar, [facility] [place] [facility] [address] [id number] [place] [address]- 9117 Mar, [facility] [place] [facility] [address] [id number] [place] [address]- 5324 Mar, [facility] [place] [facility] [address] [id number] [place] [address]- 1475 Mar, [facility] [place] [facility] [address] [facility] [id number] [place] [address]- 7264 Mar, [facility] [place] [facility] [address] [id number] [place] [address]- 4492 Mar, [facility] [place] [facility] [address] [id number] [place] [address]- 3984 Mar, [facility] [place] [facility] [address] [id number] [place] [address]- 6283 Mar, [facility] [place] [facility] [address] [id number] [place] [address]- 1972 Mar, [facility] [place] [facility] [address] [id number] [place] [address]- 1402 Feb, [facility] [place] [facility] [address] [id number] [place] [address]- 0115 Feb, [facility] [place] [facility] [address] [id number] [place] [address]- 0971 Feb, [facility] [place] [facility] [address] [id number] [place] [address]776 Feb, [facility] [place] [facility] [address] [id number] [place] [address]- 1538 Feb, [facility] [place] [facility] [address] [id number] [place] [address]- 0219 Feb, [facility] [place] [facility] [address] [id number] [place] [address]- 6964 Feb, [facility] [place] [facility] [address] [id number] [place] [address]- 3818 Jan, [facility] [place] [facility] [address] [id number] [place] [address]- 7587 Jan, [facility] [place] [facility] [address] [id number] [place] [address]- 9784 Dec, [facility] [place] [facility] [address] [id number] [place] [address]- 8203 Dec, [facility] [place] [facility] [address] [id number] [place] [address]- 0756 Dec, [facility] [place] [facility] [address] [id number] [place] [address]- 0697 Dec, [facility] [place] [facility] [address] [id number] [place] [address]- 6855 Dec, [facility] [place] [facility] [address] [id number] [place] [address]- 4679 Dec, [facility] [place] [facility] [address] [id number] [place] [address]- 0891 Nov, [facility] [place] [facility] [address] [id number], [place] [address]- 2014 Nov, [facility] [place] [facility] [address] [id number] [place] [address]- 6867 Nov, [facility] [place] [facility] [address] [id number] [place] [address]- 8894 Nov, [facility] [place] [facility] [address] [id number] [place] [address]- 0571 September, [facility] [place] [facility] [address] [id number] [place] [address]- 8695 September, [facility] [place] [facility] [address] [id number] [place] [address]- 4054 September, [facility] [place] [facility] [address] [id number] [place] [address]- 5518 Jul, [facility] [place] [facility] [address] [facility] [id number] [place] [address]- 7876 Jun, [facility] [place] [facility] [address] [id number] [place] [address]- 1708 Jun, [facility] [place] [facility] [address] [facility] [id number] [place] [address]- 0018 Jun, [facility] [place] [facility] [address] [facility] [id number] [place] [address]- 6123 Apr, [facility] [place] [facility] [address] [id number] [place] [address]- 7211 Mar, [facility] [place] [facility] [address] [id number] [place] [address]- 5027 Mar, [facility] [place] [facility] [address] [id number] [place] [address]- 4613 Feb, [facility] [place] [facility] [address] [id number] [place] [address]561 Feb, [facility] [place] [facility] [address] [facility] [id number] [place] 0094 Feb, [facility] [place] [facility] [address] [facility] [id number] [place] [address]- 7481 Jul, [facility] [address] [facility] [id number][place] [address]352 Feb, IMMUNIZATIONS No Known Immunizations SOCIAL HISTORY Never Assessed REASON FOR VISIT rash on upper arms, chest, and head. been there for 2 days. reports a lot of itching. kbullardrn, denies changing soaps, detergents, and shampoos. PLAN OF CARE Activity Details Follow Up prn Reason: VITAL SIGNS Height 62 in 2017-08-08 Weight 257.0 lbs 2017-08-08 Temperature 97.0 degrees Fahrenheit 2017-08-08 Heart Rate 98 bpm 2017-08-08 Respiratory Rate 20 2017-08-08 BMI 47.00 kg/m2 2017-08-08 Blood pressure systolic 126 mmHg 2017-08-08 Blood pressure diastolic 76 mmHg 2017-08-08 MEDICATIONS Medication Instructions Dosage Frequency Start Date End Date Duration Status Potassium Chloride Marie ER 20 MEQ TAKE ONE TABLET BY MOUTH ONCE DAILY WITH FOOD 30 Active Permethrin 5 % Externally Once a day 1 application to affected area 24h Jul, 14 Jul, 2017 1 days Active Benzonatate 100 MG TAKE ONE CAPSULE BY MOUTH THREE TIMES DAILY NEEDED 10 Active PredniSONE 20 MG 1 TABLET ONCE A DAY ORALLY 30 DAY(S) 30 Active Folic Acid 1 MG TAKE ONE TABLET BY MOUTH ONCE DAILY (DO NOT TAKE ON DAYS YOU TAKE METHOTREXATE) 30 Active Glucocard Expression Test - as directed 24h Nov, 50 Active Methotrexate 2.5 MG Orally 1 time per week 6 Active [place] 7.5-325 MG Orally every 6 hrs 1 tablet as needed 6h 14 Jun, 2017 Active Magnesium Oxide 400 mg Orally Once a day 1 tablet as needed 24h 30 day(s) Active RESULTS No Results PROCEDURES No Known [...]
--- OUTSIDE RECORDS SUMMARY | 2018-02-02 23:52 | XMS REPORT ---
Author Author ROSANA CRUMP [facility] eClinicalWorks Address Unknown Phone Unavailable Care Team Providers Care Corrections Lieutenant Name Role Phone ROSANA CRUMP CP Unavailable Allergies, Adverse Reactions, Alerts Substance Reaction Event Type Fluarix Quadrivalent vomiting Drug Allergy Zoloft makes very angry Drug Allergy Fluarix vomiting Drug Allergy Aspirin rash Drug Allergy Latex, Natural Rubber rash Non Drug Allergy Problems Problem Type Condition Code Onset Dates Condition Status Problem Diabetes type 2, controlled E11.9 Active Problem Allergic rhinitis due to pollen J30.1 Active Problem Lupus erythematosus L93.0 Active Assessment Mood disorder F39 Active Assessment Generalized anxiety disorder F41.1 Active Problem Mood disorder F39 Active Problem Menopause Z78.0 Active Medications No Known Medications Procedures Procedure Coding System Code Date Psychotherapy, patient &/family, 30 minutes, established patient CPT-4 20353 September 17, 2015 Results No Known Results Summary Purpose eClinicalWorks Submission
--- OUTSIDE RECORDS SUMMARY | 2018-02-02 23:52 | XMS REPORT ---
Author Author MACY TAMAYO Organization [facility] Address [address] [place] [address] Care Team Providers Care Bottom Polisher Name Role Phone MACY TAMAYO Unavailable PROBLEMS Type Condition ICD9-CM Code MMK29-GM Code Onset Dates Condition Status SNOMED Code Problem Plantar wart of both feet B07.0 Active [id number] Problem Controlled type 2 diabetes mellitus without complication, without long -term current use of insulin E11.9 Active 064900312 Problem Lumbago with sciatica, left side M54.42 Active 139107339 Problem Lumbago with sciatica, right side M54.41 Active 452104000 Problem Morbid (severe) obesity due to excess calories E66.01 Active 760189310 Problem Body mass index (BMI) of 45.0-49.9 in adult Z68.42 Active 023383121 Problem Tachycardia with heart rate 121-140 beats per minute R00.0 Active 7798357 Problem Dermatomyositis M33.90 Active 018054697 Problem Enlarged thyroid gland E04.9 Active 4039155 Problem Allergic rhinitis due to pollen J30.1 Active 26571151 Problem Mood disorder F39 Active 01624584 Problem Menopause Z78.0 Active 815632687 Problem Anxiety F41.9 Active 65424953 Problem Other chronic pain G89.29 Active 16949210 Problem Diabetes type 2, controlled E11.9 Active 29493004 Problem Arthritis M19.90 Active 6734763 Problem Osteoarthritis of right knee, unspecified osteoarthritis type M17.9 Active 075213584 Problem Plantar warts B07.0 Active 18182401 ALLERGIES No Information ENCOUNTERS Encounter Location Date Diagnosis [facility] [id number] [address] Dec, [facility] [id number], [place] [address] Nov, [facility] [address], [place] [address] Nov, Mood disorder F39 [facility] [id number] [place] [address] 51534- 5942 Nov, Lumbago with sciatica, right side M54.41 and Other chronic pain G89.29 [facility] [id number] [place] [address] 23887- 0987 Nov, Acute right ankle pain M25.571 [facility] [id number] [place] [address] 14472- 8454 Nov, [facility] [id number] [place] [address] 79019- 0094 Oct, [facility] [id number] [place] [address] 73910- 5765 Oct, Plantar wart of both feet B07.0 [facility] [id number] [place] [address] 65061- 2313 Oct, [facility] [id number] [place] [address] 59894- 2379 Oct, Acute right ankle pain M25.571 and Plantar wart of both feet B07.0 [facility] [id number] [place] [address] 49164- 7346 September, Other chronic pain G89.29 [facility] [id number] [place] [address] 38362- 9483 September, Other chronic pain G89.29 [facility] [address], [place] [address] 5[address] September, Other chronic pain G89.29 [facility] [id number] [place] [address] 20963- 1193 Aug, Mood disorder F39 [facility] [address], [place] [address] 6[address] 16 Apr, 2018 Other chronic pain G89.29 ; Controlled type 2 diabetes mellitus without complication, without long-term current use of insulin E11.9 ; Low back pain M54.5 and Tinea corporis B35.[address] 38887- 6315 Aug, Mood disorder F39 and Anxiety F41.[address] 10929- 5827 Aug, Mood disorder F39 and Anxiety F41.9 [address] 91838- 7238 Jul, [facility] [address] [address] Jul, Scabies B86 and BMI 45.0-49.9, adult Z68.[address] 22500- 4977 Jul, [place] [address] 87361- 5474 Jul, Mood disorder F39 and Anxiety F41.[address] 03294- 2206 Jul, [facility] [address] [address] Jun, Bronchitis J40 ; Dark urine R82.99 and BMI 45.0-49.9, adult Z68.[address] 11587- 8812 14 Jun, 2017 Acute pain of right shoulder M25.511 and Acute pain of right knee M25.[address] 89088- 0970 May, BMI 40.0-44.9, adult Z68.41 ; Controlled type 2 diabetes mellitus without complication, without long-term current use of insulin E11.9 ; Muscle cramping R25.2 ; Hot flashes R23.2 ; Mood disorder F39 ; Anxiety F41.9 and Morbid (severe) obesity due to excess calories E66.01 [place] [address] 29168- 7923 May, BMI 40.0-44.9, adult Z68.41 ; Controlled type 2 diabetes mellitus without complication, without long-term current use of insulin E11.9 ; Muscle cramping R25.2 and Hot flashes R23.2 [place] [address] 35874- 3005 May, Tachycardia with heart rate 121-140 beats per minute R00.0 ; Morbid (severe) obesity due to excess calories E66.01 ; Diabetes type 2, controlled E11.9 and Enlarged thyroid gland E04.[address] 07698- 3102 May, Encounter for well woman exam with [...] Dysuria R30.0 and Screening breast examination Z12.31 [place] [address] 91547- 2669 Apr, Mood disorder F39 ; Other chronic pain G89.29 and Anxiety F41.[address] 29740- 0734 Apr, Lumbago with sciatica, left side M54.42 and Other chronic pain G89.29 [place] [address] 86416- 2073 Apr, Lupus erythematosus L93.[address] [place] [address]- 4217 Mar, Plantar wart of both feet B07.0 [facility] [id number] [place] [address] 56225- 0100 Mar, Lupus erythematosus L93.0 and Sinus drainage J34.89 [facility] [id number] [place] [address] 28281- 8091 Mar, Mood disorder F39 ; Other chronic pain G89.29 and Anxiety F41.9 [facility] [id number] [place] [address] 56620- 3737 Mar, Mood disorder F39 ; Arthritis M19.90 and Plantar warts B07.0 [facility] [id number] [place] [address] 65225- 5921 Feb, Lupus erythematosus L93.0 [facility] [address] 96341- 1865 Feb, Other chronic pain G89.29 [facility] [id number] [place] [address] 29726- 4143 Feb, Mood disorder F39 and Anxiety F41.9 [facility] [id number] [place] [address] 90665- 7141 Jan, [facility] [id number] [place] [address] 36606- 4381 Jan, Mood disorder F39 [facility] [id number] [place] [address] 88127- 0556 Dec, Nail, ingrown L60.0 [facility] [id number] [place] [address] 51468- 8053 Dec, Nail, ingrown L60.0 [facility] [id number] [place] [address] 83984- 7536 Nov, Mood disorder F39 and Anxiety F41.9 [facility] [id number] [place] [address] 76678- 8196 Nov, Sinus drainage J34.89 ; Hot flashes R23.2 ; Anxiety F41.9 and Diabetes type 2, controlled E11.9 [facility] [id number] [place] [address] 03060- 6504 Nov, Nail, ingrown L60.0 [facility] [id number] [place] [address] 54393- 3081 Oct, Anxiety F41.9 and Mood disorder F39 [facility] [id number] [place] [address] 39803- 2322 Oct, Nail, ingrown L60.0 and Anxiety F41.9 [facility] [id number] [place] [address] 78647- 9999 Oct, Lupus erythematosus L93.0 [facility] [id number] [place] [address] 20631- 9090 September, [facility] [id number] [place] [address] 27431- 4073 September, [facility] [id number] [place] [address] 81214- 4690 September, Lupus erythematosus L93.0 [facility] [id number] [place] [address] 91277- 1677 Aug, [facility] [id number] [place] [address] 16830- 8940 Aug, Mood disorder F39 and Anxiety F41.9 [facility] [id number] [place] [address] 78998- 8698 Aug, Lupus erythematosus L93.0 ; Diabetes type 2, controlled E11.9 and Localized edema R60.0 [facility] [id number] [place] [address] 90519- 3108 Aug, [facility] [id number] [place] [address] 32235- 0002 Jul, Anxiety F41.9 and Mood disorder F39 [facility] [address], [place] [address]- 4875 10 Jul, 2016 Diabetes type 2, controlled E11.9 [place] [id number] [place] [address] 97718- 2977 13 Jun, 2016 Anxiety F41.9 [place] [id number] [place] [address] 36398- 9986 May, [place] [id number] [place] [address] 47612- 9927 May, [place] [id number] [place] [address] 15791- 9860 May, Nausea R11.0 ; Other chronic pain G89.29 and Pain in right knee M25.561 [place] [id number] [place] [address] 40653- 9242 May, [place] [id number] [place] [address] 31101- 2215 Apr, Tear of medial meniscus of right knee, current, unspecified tear type, subsequent encounter S83.241D and Tear of lateral meniscus of right knee, current, unspecified tear type, subsequent encounter S83.281D [place] [id number] [place] [address] 77459- 3658 Apr, Anxiety F41.9 and Mood disorder F39 [place] [id number] [place] [address] 33116- 3739 Apr, Anxiety F41.9 [place] [id number] [place] [address] 55249- 8045 Apr, [place] [id number] [place] [address] 93513- 3793 Mar, [place] [id number] [place] [address] 68680- 7392 Mar, Lupus erythematosus L93.0 and Diabetes type 2, controlled E11.9 [facility] [id number] [place] [address] 97607- 6077 Mar, Mood disorder F39 [facility] [id number] [place] [address] 54442- 7716 Mar, Tear of lateral meniscus of right knee, current, unspecified tear type, initial encounter S83.281A and Osteoarthritis of right knee, unspecified osteoarthritis type M17.9 [facility] [id number] [place] [address] 23703- 9229 Mar, [facility] [id number] [place] [address] 82118- 5984 Feb, Mood disorder F39 [facility] [id number] [place] [address] 59239- 3412 Feb, Rash R21 [facility] [id number] [place] [address] 50029- 7088 Feb, [facility] [id number] [place] [address] 81851- 0833 Jan, Other chronic pain G89.29 and Muscle spasm M62.838 [facility] [id number] [place] [address] 16644- 3589 Jan, Mood disorder F39 [facility] [id number] [place] [address] 16291- 1975 Jan, Pain in right knee M25.561 ; Other chronic pain G89.29 and Muscle spasm M62.838 [facility] [id number] [place] [address] 34101- 6411 Dec, [facility] [id number] [place] [address] 44619- 6696 Dec, [facility] [id number] [place] [address] 72488- 1169 Nov, [facility] [id number] [place] [address] 25856- 5090 Nov, Mood disorder F39 [place] [id number] [place] [address] 96816- 7973 Nov, Diabetes type 2, controlled E11.9 ; Bronchitis J40 ; Edema, unspecified type R60.9 ; Weight gain R63.5 and Right knee pain, unspecified chronicity M25.561 [place] [id number] [place] [address] 36113- 0651 Oct, Mood disorder F39 [place] [id number] [place] [address] 23884- 1307 Oct, Lupus erythematosus L93.0 and Bilateral edema of lower extremity R60.0 [place] [id number] [place] [address] 50352- 7504 Oct, Mood disorder F39 and Anxiety F41.9 [place] [id number] [place] [address] 19131- 2294 September, Mood disorder F39 ; Anxiety F41.9 and Anger reaction R45.4 [place] [id number] [place] [address] 71875- 9591 September, Diabetes type 2, controlled E11.9 ; Edema, unspecified type R60.9 and Fatigue, unspecified type R53.83 [place] [id number] [place] [address] 74040- 6355 Aug, Mood disorder F39 and Generalized anxiety disorder F41.1 [place] [id number] [place] [address] 81168- 7650 Aug, Diabetes type 2, controlled E11.9 ; Sinusitis J32.9 and Mood disorder F39 [place] [id number] [place] [address] 54217- 2242 Aug, Lupus erythematosus L93.0 [place] [id number] [place] [address] 86715- 2759 14 Aug, 2015 [place] [address], [place] [address]- 1100 07 Aug, 2015 [facility] [id number] [place] [address] 84567- 9531 Jul, Diabetes type 2, controlled E11.9 [facility] [id number] [place] [address] 35031 2546 Jul, Mood disorder F39 and Depression F32.9 [facility] [id number] [place] [address] 68353 2548 Jul, Lupus erythematosus L93.0 and Diabetes type 2, controlled E11.9 [facility] [id number] [place] [address] 41767- 7936 Jul, Mood disorder F39 and Anxiety F41.9 [facility] [id number] [place] [address] 33459- 9986 Jul, [facility] [id number] [place] [address] 24109- 6984 Jul, [facility] [id number] [place] [address] 37815- 0177 Jun, Mood disorder F39 and Anxiety F41.9 [facility] [address], [place] [address]- 9132 Jun, Mood disorder F39 [facility] [id number] [place] [address] 23707 2546 Jun, [facility] [address], [place] [address]- 2546 Jun, [facility] [id number] [place] [address] 02479- 0293 Jun, Mood disorder F39 [facility] [address], [place] [address]- 2546 Jun, [facility] [id number] [place] [address] 77166- 1900 May, [facility] [address], [place] [address]- 1998 May, [facility] [id number] [place] [address] 43469- 5498 May, [facility] [id number] [place] [address] 13932- 1898 May, [facility] [id number] [place] [address] 11678- 7592 May, Anxiety F41.9 ; Dermatomyositis M33.90 and Diabetes type 2, controlled E11.9 [facility] [id number] [place] [address] 55540 -6073 May, Sinusitis J32.9 and Cough R05 [facility] [id number] [place] [address] 59981- 5923 May, Mood disorder F39 [facility] [id number] [place] [address] 18678- 4205 May, Adjustment disorder with mixed anxiety and depressed mood F43.23 [facility] [id number] [place] [address] 22981- 4762 Apr, [facility] [id number] [place] [address] 33917- 5615 Apr, [facility] [id number] [place] [address] 34318- 3587 Apr, Generalized anxiety disorder F41.1 and Mood disorder F39 [facility] [id number] [place] [address] 53737- 9878 Mar, [facility] [id number] [place] [address] 60719- 0937 Mar, [facility] [id number] [place] [address] 43780- 7307 Mar, [facility] [id number] [place] [address] 16433- 3559 Mar, Mood disorder F39 [place] [id number] [place] [address] 19113- 3952 Feb, [place] [id number] [place] [address] 33673- 7936 Feb, Diabetes E11.9 and Bronchitis J40 [place] [address] 83724- 3217 Feb, [place] [id number] [place] [address] 73589- 1787 Feb, [place] [address] 24892- 6014 Feb, Major depression, recurrent, full remission F33.42 and KELLY ( generalized anxiety disorder) F41.[address] 92327- 5089 Feb, [place] [address] 55604- 8878 Feb, Single major depressive episode, in partial or unspecified remission F32.5 [place] [id number] [place] [address] 28741- 0774 Jan, Fatigue 780.79 [place] [id number] [place] [address] 19885- 0227 Jan, [place] [id number] [place] [address] 81596- 0525 Jan, Diabetes with other specified manifestations, type II or unspecified type, not stated as uncontrolled 250.80 [place] [address] 50677- 8814 Jan, [place] [id number] [place] [address] 72502- 9816 Dec, Hot flashes 627.2 ; Memory loss 780.93 and Joint pain 719.[address] [id number] [address]- 0769 Dec, Major depression, recurrent 296.30 ; Generalized anxiety disorder 300.02 ; Adjustment disorder with depressed mood 309.0 and No condition on [place] II V71.09 [place] [address] [address]- 7758 Dec, [place] [id number] [place] [address] 97252- 4767 Nov, Cognitive and neurobehavioral dysfunction 294.9 ; Major depressive disorder, recurrent episode, moderate degree 296.32 and Anxiety state , unspecified 300.00 [place] [id number] [place] [address] 15337- 0902 Nov, [place] [id number] [place] [address] 42308- 2084 Nov, Bronchitis 490 and Diabetes with other specified manifestations, type II or unspecified type, not stated as uncontrolled 250.80 [address] [place] [address] 30034- 6605 Nov, Major depressive disorder, recurrent episode, moderate 296.32 and Anxiety disorder, unspecified 300.[address] [place] [address] 35011- 8431 Nov, Anxiety, generalized 300.02 ; Intermittent explosive disorder 312.34 ; No condition on [place] II V71.09 and No condition on axis III V71.09 [place] [id number] [place] [address] 99728- 5229 Oct, Diabetes with other specified manifestations, type II or unspecified type, not stated as uncontrolled 250.80 ; Urinary tract infection, site not specified 599.0 and Bronchitis [address] [place] [address] 75034- 0894 Oct, Intermittent explosive disorder 312.34 ; Bipolar 1 disorder , depressed, moderate 296.52 ; Major depression, chronic 296.20 ; No condition on [place] II V71.09 and No condition on axis III V71.09 [facility] [id number] [place] [address] 62749- 7112 15 Oct, 2014 Major depressive disorder, recurrent episode, moderate 296.32 ; Anxiety state 300.00 ; Cognitive decline 294.9 and No condition on [place] II V71.09 [facility] [id number] [place] [address] 60170- 2166 Oct, [facility] [id number] [place] [address] 17222- 4755 Oct, Major depressive disorder, recurrent episode, moderate 296.32 ; Anxiety disorder, unspecified 300.00 and Persistent disorder of initiating or maintaining sleep 307.42 [place] [id number] [place] [address] 37132- 4245 September, Diabetes with other specified manifestations, type II or unspecified type, not stated as uncontrolled 250.80 ; Memory loss 780.93 and Cognitive complaints 799.59 [place] [id number] [place] [address] 34068- 6007 September, No condition on [place] II V71.09 ; Major depression, recurrent 296.30 and Persistent mood [affective] disorder, unspecified 296.90 [place] [id number] [place] [address] 24875- 2584 Aug, [place] [id number] [place] [address] 89692- 3236 Aug, [facility] [id number] [place] [address] 61476- 6196 Aug, [facility] [id number] [place] [address] 71162- 3006 Jul, [facility] [id number] [place] [address] 64444- 9041 Jul, [facility] [id number] [place] [address] 87935- 9126 Jul, [facility] [id number] [place] [address] 72240- 1184 Jul, [facility] [place] [facility] [address] [id number] [place] [address] Jul, [facility] [place] [facility] [address] [id number] [place] [address] Jun, 2014 [facility] [place] [facility] [address] [facility] [id number] [place] [address] Jun, 2014 [facility] [place] [facility] [address] [id number] [place] [address]- 2017 Jun, 2014 [facility] [place] [facility] [address] [id number] [place] [address] 9132 Jun, 2014 [facility] [place] [facility] [address] [facility] [id number] [place] [address] 7609 Jun, 2014 [facility] [place] [facility] [address] [facility] [id number] [place] [address]- 1764 Jun, 2014 [facility] [place] [facility] [address] [facility] [id number] [place] [address]- 1560 Jun, 2014 [facility] [place] [facility] [address] [facility] [id number] [place] [address]- 6384 Jun, 2014 [facility] [place] [facility] [address] [facility] [id number] [place] [address] 6939 Jun, 2014 [facility] [place] [facility] [address] [facility] [id number] [place] [address]- 2546 Jun, 2014 [facility] [place] [facility] [address] [facility] [id number] [place] [address]- 2547 Jun, 2014 [facility] [place] [facility] [address] [facility] [id number] [place] [address] Jun, 2014 [facility] [place] [facility] [address] [facility] [id number] [place] [address] Jun, 2014 [facility] [place] [facility] [address] [facility] [id number] [place] [address] May, [facility] [place] [facility] [address] [id number] [place] [address] 0[address] May, [facility] [place] [facility] [address] [id number] [place] [address] 0467 Apr, [facility] [place] [facility] [address] [id number] [place] [address] 4298 Apr, [facility] [place] [facility] [address] [id number] [place] [address] 4736 Apr, [facility] [place] [facility] [address] [id number] [place] [address] 6446 Apr, [facility] [place] [facility] [address] [id number] [place] [address] 8[address] Apr, [facility] [place] [facility] [address] [id number] [place] [address] 4859 Apr, [facility] [place] [facility] [address] [id number] [place] [address] 2189 Apr, [facility] [place] [facility] [address] [id number] [place] [address] 9144 Apr, [facility] [place] [facility] [address] [id number] [place] [address] 4453 Apr, [facility] [place] [facility] [address] [id number] [place] [address] 9875 Apr, [facility] [place] [facility] [address] [id number] [place] [address] 6247 Apr, [facility] [place] [facility] [address] [id number] [place] [address]- 6993 Apr, [facility] [place] [facility] [address] [id number] [place] [address] 2813 Apr, [facility] [place] [facility] [address] [id number] [place] [address]- 9567 Apr, [facility] [place] [facility] [address] [id number] [place] [address]- 7236 Apr, [facility] [place] [facility] [address] [id number] [place] [address] 5147 Apr, [facility] [place] [facility] [address] [id number] [place] [address]- 7003 Apr, [facility] [place] [facility] [address] [id number] [place] [address] 2542 Apr, [facility] [place] [facility] [address] [id number] [place] [address]- 4178 Apr, [facility] [place] [facility] [address] [id number] [place] [address]- 0718 Apr, [facility] [place] [facility] [address] [id number] [place] [address]- 7531 Mar, [facility] [place] [facility] [address] [id number] [place] [address]- 5447 Mar, [facility] [place] [facility] [address] [id number] [place] [address] 8416 Mar, [facility] [place] [facility] [address] [id number] [place] [address]- 5687 Mar, [facility] [place] [facility] [address] [facility] [id number] [place] [address] 8800 Mar, [facility] [place] [facility] [address] [id number] [place] [address]- 7953 Mar, [facility] [place] [facility] [address] [id number] [place] [address]- 1002 Mar, [facility] [place] [facility] [address] [id number] [place] [address]- 6623 Mar, [facility] [place] [facility] [address] [id number] [place] [address]- 6840 Mar, [facility] [place] [facility] [address] [id number] [place] [address]- 8496 Mar, [facility] [place] [facility] [address] [id number] [place] [address]- 3267 Mar, [facility] [place] [facility] [address] [id number] [place] [address]- 2272 Mar, [facility] [place] [facility] [address] [id number] [place] [address]- 2682 Mar, [facility] [place] [facility] [address] [id number] [place] [address]- 9426 Feb, [facility] [place] [facility] [address] [id number] [place] [address]- 2990 Feb, [facility] [place] [facility] [address] [id number] [place] [address]- 1245 Feb, [facility] [place] [facility] [address] [id number] [place] [address]- 9850 Feb, [facility] [place] [facility] [address] [id number] [place] [address] 8840 Feb, [facility] [place] [facility] [address] [id number] [place] [address]- 7192 Feb, [facility] [place] [facility] [address] [id number] [place] [address]- 5771 Feb, [facility] [place] [facility] [address] [id number] [place] [address]- 1055 Feb, [facility] [place] [facility] [address] [id number] [place] [address]- 3041 Feb, [facility] [place] [facility] [address] [id number] [place] [address]- 4238 Feb, [facility] [place] [facility] [address] [id number] [place] [address]- 3485 Feb, [facility] [place] [facility] [address] [id number] [place] [address]- 3305 Feb, [facility] [place] [facility] [address] [id number] [place] [address]- 6607 Feb, [facility] [place] [facility] [address] [id number] [place] [address]- 9546 Feb, [facility] [place] [facility] [address] [id number] [place] [address]- 8002 Feb, [facility] [place] [facility] [address] [id number] [place] [address]- 3393 Jan, [facility] [place] [facility] [address] [id number] [place] [address]- 1441 Jan, [facility] [place] [facility] [address] [id number] [place] [address]- 0650 Jan, [facility] [place] [facility] [address] [id number] [place] [address]- 1357 Jan, [facility] [place] [facility] [address] [id number] [place] [address]- 4979 Jan, [facility] [place] [facility] [address] [id number] [place] [address]- 5545 Dec, [facility] [place] [facility] [address] [id number] [place] [address]- 8547 Dec, [facility] [place] [facility] [address] [id number] [place] [address]- 3804 Dec, [facility] [place] [facility] [address] [id number] [place] [address]- 6694 Dec, [facility] [place] [facility] [address] [id number] [place] [address]- 8144 Nov, [facility] [place] [facility] [address] [id number] [place] [address]- 5244 Nov, [facility] [place] [facility] [address] [id number] [place] [address]- 5146 Nov, [facility] [place] [facility] [address] [id number] [place] Nov, [facility] [place] [facility] [address] [id number] [place] [address]- 9719 Nov, [facility] [address] [id number] [place] [address]- 4915 Nov, [facility] [place] [facility] [address] [id number] [place] [address]- 2474 Nov, [facility] [place] [facility] [address] [id number] [place] [address]- 0734 Nov, [facility] [place] [facility] [address] [id number] [place] [address]- 4451 Nov, [facility] [place] [facility] [address] [id number] [place] [address]- 2618 Nov, [facility] [place] [facility] [address] [id number] [place] [address]- 1412 Oct, [facility] [place] [facility] [address] [id number] [place] [address]- 6939 Oct, [facility] [address] [id number] [place] [address]- 5223 September, [facility] [place] [facility] [address] [id number] [place] [address]- 7713 September, [facility] [address] [id number] [place] [address]- 2219 September, [facility] [place] [facility] [address] [id number] [place] [address]- 3240 September, [facility] [place] [facility] [address] [id number] [place] [address]- 8414 16 Aug, 2013 [facility] [place] [facility] [address] [id number] [place] [address]- 4880 Aug, [facility] [place] [facility] [address] [id number] [place] [address]- 5394 Aug, [facility] [place] [facility] [address] [id number] [place] [address]- 4874 Jul, [facility] [place] [facility] [address] [id number] [place] [address]- 5533 24 Jul, 2013 [facility] [place] [facility] [address] [id number] [place] [address]- 3563 14 Jul, 2013 [facility] [place] [facility] [address] [id number] [place] [address]- 1545 14 Jul, 2013 [facility] [place] [facility] [address] [id number] [place] [address]- 5497 May, [facility] [place] [facility] [address] [id number] [place] [address]- 0627 May, [facility] [place] [facility] [address] [id number] [place] [address]- 4548 May, [facility] [place] [facility] [address] [id number] [place] [address]- 2501 15 Mar, 2013 [facility] [place] [facility] [address] [id number] [place] [address]- 0092 15 Mar, 2013 [facility] [place] [facility] [address] [id number] [place] [address]- 6408 Mar, [facility] [place] [facility] [address] [id number] [place] [address]- 8422 Mar, [facility] [place] [facility] [address] [id number] [place] [address]- 9452 16 Feb, 2013 [facility] [place] [facility] [address] [id number], [place] [address]- 3917 16 Feb, 2013 [facility] [place] [facility] [address] [id number] [place] [address]- 6745 04 Feb, 2013 [facility] [place] [facility] [address] [id number] [place] 16 Jan, 2013 [facility] [place] [facility] [address] [id number], [place] [address]- 7267 12 Jan, 2013 [facility] [place] [facility] [address] [id number], [place] [address]- 5988 Jan, [facility] [address] [id number] [place] [address]- 7421 Dec, [facility] [place] [facility] [address] [id number] [place] [address]- 3975 Dec, [facility] [address] [id number] [place] [address]- 6170 Dec, [facility] [place] [facility] [address] [id number] [place] [address]- 6052 Dec, [facility] [address] [id number] [place] [address]- 7047 Nov, [facility] [address] [id number] [place] [address]- 2987 Oct, [facility] [address] [id number] [place] [address]- 9860 Oct, [facility] [address] [id number] [place] [address]- 3321 September, [facility] [address] [id number] [place] [address]- 8563 September, [facility] [address] [id number] [place] [address]- 8704 September, [facility] [address] [id number] [place] [address]- 1377 Aug, [facility] [place] [facility] [address] [id number] [place] [address]- 4357 Aug, [facility] [place] [facility] [address] [id number] [place] [address]- 0172 Aug, [facility] [place] [facility] [address] [id number] [place] [address]- 8297 Aug, [facility] [place] [facility] [address] [id number] [place] [address]- 7942 Jul, [facility] [place] [facility] [address] [id number] [place] [address]- 1499 25 Jul, 2012 [facility] [address] [id number] [place] [address]- 4276 21 Jul, 2012 [facility] [place] [facility] [address] [id number] [place] [address]- 1316 15 Jul, 2012 [facility] [address] [id number] [place] [address]- 8567 14 Jul, 2012 [facility] [place] [facility] [address] [id number] [place] [address]- 3697 Jul, [facility] [place] [facility] [address] [id number] [place] [address]- 9138 Jul, [facility] [place] [facility] [address] [id number] [place] [address]- 3452 06 Jun, 2012 [facility] [place] [facility] [address] [id number] [place] [address]- 3943 Jun, [facility] [address] [id number] [place] [address]- 0820 05 Jun, 2012 [facility] [place] [facility] [address] [id number] [place] [address]- 7365 Jun, [facility] [place] [facility] [address] [id number] [place] [address]- 7550 May, [facility] [place] [facility] [address] [id number] [place] [address]- 4869 May, [facility] [place] [facility] [address] [id number] [place] [address]- 0908 May, [facility] [place] [facility] [address] [id number] [place] [address]- 0951 May, [facility] [place] [facility] [address] [id number] [place] [address]- 4107 May, [facility] [place] [facility] [address] [id number] [place] [address]- 1078 Apr, [facility] [place] [facility] [address] [id number] [place] [address]- 4126 Apr, [facility] [place] [facility] [address] [id number] [place] [address]- 1641 Mar, [facility] [place] [facility] [address] [facility] [id number] [place] [address]- 4845 Mar, [facility] [place] [facility] [address] [id number] [place] [address]- 2660 Mar, [facility] [place] [facility] [address] [id number] [place] [address]- 1148 Mar, [facility] [place] [facility] [address] [id number] [place] [address]- 0314 Mar, [facility] [place] [facility] [address] [id number] [place] [address]- 0357 Mar, [facility] [place] [facility] [address] [id number], [place] [address]- 9920 Mar, [facility] [place] [facility] [address] [id number], [place] [address]- 4484 Mar, [facility] [place] [facility] [address] [id number] [place] [address]- 4711 Mar, [facility] [place] [facility] [address] [id number], [place] [address]- 0780 Mar, [facility] [place] [facility] [address] [id number], [place] [address]- 0066 Feb, [facility] [place] [facility] [address] [id number], [place] [address]- 0256 Feb, [facility] [place] [facility] [address] [facility] [id number], [place] [address]- 6809 Feb, [facility] [place] [facility] [address] [id number], [place] [address]- 8335 Feb, [facility] [place] [facility] [address] [id number] [place] [address]- 8094 Feb, [facility] [address] [id number] [place] [address]- 4354 Feb, [facility] [place] [facility] [address] [id number] [place] Feb, [facility] [address] [id number] [place] [address]- 6905 Jan, [facility] [place] [facility] [address] [id number] [place] [address]- 3423 Jan, [facility] [place] [facility] [address] [id number] [place] [address]- 4020 Dec, [facility] [place] [facility] [address] [id number] [place] [address]- 4130 Dec, [facility] [place] [facility] [address] [id number] [place] [address]- 9706 Dec, [facility] [address] [id number] [place] [address]- 2007 Dec, [facility] [place] [facility] [address] [id number] [place] [address]- 5861 Dec, [facility] [address] [id number] [place] [address]- 5516 Dec, [facility] [place] [facility] [address] [id number] [place] [address]- 8638 Nov, [facility] [place] [facility] [address] [id number] [place] [address]- 5516 Nov, [facility] [place] [facility] [address] [id number] [place] [address]- 9258 Nov, [facility] [place] [facility] [address] [id number] [place] [address]- 4800 Nov, [facility] [place] [facility] [address] [id number] [place] [address]- 3843 September, [facility] [id number], [place] [address]- 1338 September, [facility] [id number], [place] [address]- 9356 September, [facility] [id number], [place] [address]- 6910 Jul, [facility] [id number], [place] [address]- 9116 Jun, [facility] [id number], [place] [address]- 1641 Jun, [facility] [id number] [place] [address]- 4496 Jun, [facility] [id number], [place] [address]- 8103 Apr, [facility] [id number], [place] [address]- 4245 Mar, [facility] [id number], [place] [address]- 3309 Mar, [facility] [id number], [place] [address]- 1041 Feb, [facility] [id number], [place] [address]- 6016 Feb, [facility] [id number], [place] [address]- 2943 Feb, [facility] [address] [id number], [place] [address]- 8755 Jul, [facility] [id number], [place] [address]- 7530 Feb, IMMUNIZATIONS No Known Immunizations SOCIAL HISTORY Never Assessed REASON FOR VISIT [facility] [place] [facility] VITAL SIGNS MEDICATIONS Unknown [...]
--- OUTSIDE RECORDS SUMMARY | 2018-02-02 23:52 | XMS REPORT ---
Author Author MACY TAMAYO Organization [employer] Address Unknown Phone Unavailable Care Team Providers Care Machine Hoop Maker Helper Name Role Phone MACY TAMAYO CP Unavailable Allergies No Known Allergies Problems Problem Type Condition Code Onset Dates Condition Status Problem Diabetes type 2, controlled E11.9 Active Problem Allergic rhinitis due to pollen J30.1 Active Problem Lupus erythematosus L93.0 Active Problem Mood disorder F39 Active Problem Menopause Z78.0 Active Medications No Known Medications Results No Known Results Summary Purpose [employer] Submission
--- OUTSIDE RECORDS SUMMARY | 2018-02-02 23:52 | XMS REPORT ---
Author Author MACY TAMAYO [facility] Address [address] [place] [address] Care Team Providers Care Family And Consumer Education Teacher Name Role Phone MACY TAMAYO Unavailable PROBLEMS Type Condition ICD9-CM Code [id number] Code Onset Dates Condition Status SNOMED Code Problem Menopause Z78.0 Active 462167186 Problem Lupus erythematosus L93.0 Active 036739519 Problem Other chronic pain G89.29 Active 68338214 Problem Anxiety F41.9 Active 39652366 Problem Diabetes type 2, controlled E11.9 Active 28288187 Problem Mood disorder F39 Active 33465512 Problem Osteoarthritis of right knee, unspecified osteoarthritis type M17.9 Active 255465091 Problem Allergic rhinitis due to pollen J30.1 Active 41491270 ALLERGIES Unknown Allergies SOCIAL HISTORY No smoking Hx information available PLAN OF CARE VITAL SIGNS MEDICATIONS Unknown Medications RESULTS No Results PROCEDURES No Known procedures IMMUNIZATIONS No Known Immunizations
--- OUTSIDE RECORDS SUMMARY | 2018-02-02 23:52 | XMS REPORT ---
Author MACY Wadsworth Organization [employer] Address Unknown Phone Unavailable Care Team Providers Care Information Officer Name Role Phone MACY TAMAYO CP Unavailable [...]
--- OUTSIDE RECORDS SUMMARY | 2018-02-02 23:53 | XMS REPORT ---
Author Author MACY TAMAYO Organization [employer] Address Unknown Phone Unavailable Care Team Providers Care Oven Operator Automatic Name Role Phone MACY TAMAYO CP Unavailable Allergies No Known Allergies Problems Problem Type Condition ICD-9 Code Onset Dates Condition Status Problem Diabetes with other specified manifestations, type II or unspecified type, not stated as uncontrolled 250.80 Active Assessment Diabetes with other specified manifestations, type II or unspecified type, not stated as uncontrolled 250.80 Active Problem Depressive disorder, not elsewhere classified 311 Active Problem Screening for malignant neoplasm of the cervix V76.2 Active Problem Other specified menopausal and postmenopausal disorder 627.8 Active Problem Mastodynia 611.71 Active Problem Allergic rhinitis, cause unspecified 477.9 Active Problem Edema 782.3 Active Problem Unspecified episodic mood disorder 296.90 Active Medications Medication Code System Code Instructions Start Date End Date Status Dosage Methotrexate [facility] [address]-08 2.5 MG Orally 1 time per week 6 Results No Known Results Summary Purpose [employer] Submission
--- OUTSIDE RECORDS SUMMARY | 2018-02-02 23:53 | XMS REPORT ---
Author Author MACY TAMAYO Organization [facility] Address [address] [place] [address] Care Team Providers Care Tissue Specialist Name Role Phone MACY TAMAYO Unavailable PROBLEMS Type Condition ICD9-CM Code VEB74-GD Code Onset Dates Condition Status SNOMED Code Problem Menopause Z78.0 Active 113971863 Problem Lupus erythematosus L93.0 Active 492320776 Problem Other chronic pain G89.29 Active 65427816 Problem Anxiety F41.9 Active 66054021 Problem Diabetes type 2, controlled E11.9 Active 70636341 Problem Mood disorder F39 Active 02078749 Problem Osteoarthritis of right knee, unspecified osteoarthritis type M17.9 Active 947244636 Problem Allergic rhinitis due to pollen J30.1 Active 72037562 ALLERGIES No Information SOCIAL HISTORY Never Assessed PLAN OF CARE VITAL SIGNS MEDICATIONS Medication Instructions Dosage Frequency Start Date End Date Duration Status Xanax 2 MG Orally Twice a day 1 tablet 12h 09 Apr, 2016 28 days Active PredniSONE 20 MG Orally Once a day 1 tablet 24h 20 May, 2015 30 days Active RESULTS No Results PROCEDURES No Known procedures IMMUNIZATIONS No Known Immunizations MEDICAL (GENERAL) HISTORY Type Description Date Medical History type II diabetes-dx'd 12/2010 Medical History dysfunctional uterine bleeding--endometrial bx 12/2010 Medical History asthma Medical History hypertension Medical History obesity Medical History anxiety Medical History autoimmune disease Surgical History x1 Hospitalization History child Hospitalization History Asthma
--- OUTSIDE RECORDS SUMMARY | 2018-02-02 23:53 | XMS REPORT ---
Author Author MACY TAMAYO Organization [employer] Address Unknown Phone Unavailable Care Team Providers Care Screen Printer Helper Name Role Phone MACY TAMAYO CP [...]
--- OUTSIDE RECORDS SUMMARY | 2018-02-02 23:53 | XMS REPORT ---
Author Author MACY TAMAYO Organization [facility] Address [address] [place] [address] Care Team Providers Care Sheet Fed Printer Name Role Phone MACY TAMAYO Unavailable PROBLEMS Type Condition ICD9-CM Code LWR07-UW Code Onset Dates Condition Status SNOMED Code Problem Plantar warts B07.0 Active 58057105 Problem Lumbago with sciatica, left side M54.42 Active 943859418 Problem Plantar wart of both feet B07.0 Active 84952061280841286 Problem Morbid (severe) obesity due to excess calories E66.01 Active 847638063 Problem Dermatomyositis M33.90 Active 808917433 Problem Tachycardia with heart rate 121-140 beats per minute R00.0 Active 3910418 Problem Controlled type 2 diabetes mellitus without complication, without long -term current use of insulin E11.9 Active 827510280 Problem Enlarged thyroid gland E04.9 Active 8099443 Problem Body mass index (BMI) of 45.0-49.9 in adult Z68.42 Active 277258495 Problem Menopause Z78.0 Active 594659787 Problem Allergic rhinitis due to pollen J30.1 Active 85594156 Problem Osteoarthritis of right knee, unspecified osteoarthritis type M17.9 Active 621557950 Problem Anxiety F41.9 Active 32191433 Problem Mood disorder F39 Active 25028767 Problem Other chronic pain G89.29 Active 94652996 Problem Diabetes type 2, controlled E11.9 Active 18862709 Problem Arthritis M19.90 Active 7091173 ALLERGIES No Information ENCOUNTERS Encounter Location Date Diagnosis [facility] [address] [facility] [id number] [address] Aug, [facility] [address] [id number] [address] Aug, [facility] [address] [id number] [address] Aug, [place] [id number] [place] [address] 56045- 9557 Jul, [facility] [place] [id number] [place] [address] 19316 -1353 Jul, Scabies B86 and BMI 45.0-49.9, adult Z68.42 [place] [address] [address]- [address] Jul, [place] [address] 9[address]- 6902 Jul, Mood disorder F39 and Anxiety F41.[address] [address]- 8016 Jul, [facility] [place] [id number] [place] [address] 52730 -6576 27 Jun, 2017 Bronchitis J40 ; Dark urine R82.99 and BMI 45.0-49.9, adult Z68.42 [place] [id number] [place] [address] 08853- 9395 14 Jun, 2017 Acute pain of right shoulder M25.511 and Acute pain of right knee M25.561 [place] [address] [address] [id number] [place] [address] 89020- 3946 May, BMI 40.0-44.9, adult Z68.41 ; Controlled type 2 diabetes mellitus without complication, without long-term current use of insulin E11.9 ; Muscle cramping R25.2 ; Hot flashes R23.2 ; Mood disorder F39 ; Anxiety F41.9 and Morbid (severe) obesity due to excess calories E66.01 [place] [id number] [place] [address] 36361- 0882 May, BMI 40.0-44.9, adult Z68.41 ; Controlled type 2 diabetes mellitus without complication, without long-term current use of insulin E11.9 ; Muscle cramping R25.2 and Hot flashes R23.2 [place] [address] [place] [address] 14056- 4025 May, Tachycardia with heart rate 121-140 beats per minute R00.0 ; Morbid (severe) obesity due to excess calories E66.01 ; Diabetes type 2, controlled E11.9 and Enlarged thyroid gland E04.9 [place] [id number] [place] [address] 67681- 9138 25 May, 2017 Encounter for well woman [...] Dysuria R30.0 and Screening breast examination Z12.31 [place] [address] [address] [id number] [place] [address] 18301- 4195 Apr, Mood disorder F39 ; Other chronic pain G89.29 and Anxiety F41.[address] 47627- 6055 Apr, Lumbago with sciatica, left side M54.42 and Other chronic pain G89.29 [place] [address] [address] [id number] [place] [address] 31246- 1233 Apr, Lupus erythematosus L93.0 [place] [address] [address] [id number] [place] [address] 17767- 3875 Mar, Plantar wart of both feet B07.0 [place] [address] 03937- 7841 24 Mar, 2017 Lupus erythematosus L93.0 and Sinus drainage J34.89 [place] [address] [address] [id number] [place] [address] 53860- 6691 09 Mar, 2017 Mood disorder F39 ; Other chronic pain G89.29 and Anxiety F41.9 [facility] [id number] [place] [address] 44488- 7480 Mar, Mood disorder F39 ; Arthritis M19.90 and Plantar warts B07.0 [facility] [id number] [place] [address] 45283- 5851 Feb, Lupus erythematosus L93.0 [facility] [address] 46261- 5305 Feb, Other chronic pain G89.29 [facility] [address] 84923- 5132 Feb, Mood disorder F39 and Anxiety F41.9 [facility] [address] 51429- 0202 Jan, [place] [address] 35247- 4053 Jan, Mood disorder F39 [facility] [id number] [place] [address] 80206- 2177 Dec, Nail, ingrown L60.0 [facility] [address] 06962- 4523 Dec, Nail, ingrown L60.0 [facility] [address] 54390- 3915 Nov, Mood disorder F39 and Anxiety F41.9 [facility] [id number] [place] [address] 67143- 0480 Nov, Sinus drainage J34.89 ; Hot flashes R23.2 ; Anxiety F41.9 and Diabetes type 2, controlled E11.9 [facility] [address] 20898- 3608 Nov, Nail, ingrown L60.0 [facility] [id number] [place] [address] 81300- 3080 Oct, Anxiety F41.9 and Mood disorder F39 [facility] [address] [address] 2987 Oct, Nail, ingrown L60.0 and Anxiety F41.9 [facility] [id number] [place] [address] 64754- 5627 Oct, Lupus erythematosus L93.0 [facility] [id number] [place] [address] 90967- 5320 September, [facility] [id number] [place] [address] 67826- 9127 September, [facility] [id number] [place] [address] 06966- 2723 September, Lupus erythematosus L93.0 [facility] [id number] [place] [address] 18018- 3390 Aug, [facility] [id number] [place] [address] 69599- 1150 Aug, Mood disorder F39 and Anxiety F41.9 [facility] [id number] [place] [address] 18582- 4681 Aug, Lupus erythematosus L93.0 ; Diabetes type 2, controlled E11.9 and Localized edema R60.0 [facility] [address] [place] [address] 24643- 4891 Aug, [facility] [id number] [place] [address] 73883- 1813 Jul, Anxiety F41.9 and Mood disorder F39 [facility] [address] [place] [address] 49518- 4984 Jul, Diabetes type 2, controlled E11.9 [facility] [id number] [place] [address] 04758- 4199 Jun, Anxiety F41.9 [facility] [id number] [place] [address] 17116- 9610 May, [place] [address] [address] [id number] [place] [address] 53924- 1504 May, [place] [address] [address] [id number] [place] [address] 62404- 4946 May, Nausea R11.0 ; Other chronic pain G89.29 and Pain in right knee M25.561 [place] [id number] [place] [address] 41934- 6936 May, [place] [id number] [place] [address] 18823- 8933 Apr, Tear of medial meniscus of right knee, current, unspecified tear type, subsequent encounter S83.241D and Tear of lateral meniscus of right knee, current, unspecified tear type, subsequent encounter S83.281D [place] [id number] [place] [address] 76499- 0297 Apr, Anxiety F41.9 and Mood disorder F39 [place] [address] [id number] [place] [address] 37512- 0382 Apr, Anxiety F41.9 [place] [address] [id number] [place] [address] 52324- 5014 Apr, [place] [address] [id number] [place] [address] 09025- 4520 17 Mar, 2016 [place] [address] [id number] [place] [address] 39759- 2847 Mar, Lupus erythematosus L93.0 and Diabetes type 2, controlled E11.9 [place] [address] [id number] [place] [address] 02093- 6854 Mar, Mood disorder F39 [place] [address] [id number] [place] [address] 32971- 4494 03 Mar, 2016 Tear of lateral meniscus of right knee, current, unspecified tear type, initial encounter S83.281A and Osteoarthritis of right knee, unspecified osteoarthritis type M17.9 [place] [address] [address]- 9306 Mar, [facility] [id number] [place] [address] 67609- 6435 Feb, Mood disorder F39 [facility] [id number] [place] [address] 72113- 9033 Feb, Rash R21 [facility] [id number] [place] [address] 20598- 7320 Feb, [facility] [address] [id number] [place] [address] 65801- 7651 Jan, Other chronic pain G89.29 and Muscle spasm M62.838 [facility] [id number] [place] [address] 04478- 7449 Jan, Mood disorder F39 [facility] [id number] [place] [address] 58800- 6930 Jan, Pain in right knee M25.561 ; Other chronic pain G89.29 and Muscle spasm M62.838 [facility] [address] [place] [address] 89320- 1697 Dec, [facility] [id number] [place] [address] 14046- 3690 Dec, [facility] [address] [place] [address] 91374- 6328 Nov, [facility] [id number] [place] [address] 94668- 7355 Nov, Mood disorder F39 [facility] [address] [place] [address] 41706- 8800 Nov, Diabetes type 2, controlled E11.9 ; Bronchitis J40 ; Edema, unspecified type R60.9 ; Weight gain R63.5 and Right knee pain, unspecified chronicity M25.561 [facility] [id number] [place] [address] 32221- 4939 Oct, Mood disorder F39 [facility] [id number] [place] [address] 43139- 7539 Oct, Lupus erythematosus L93.0 and Bilateral edema of lower extremity R60.0 [facility] [id number] [place] [address] 65289- 5955 16 Oct, 2015 Mood disorder F39 and Anxiety F41.9 [facility] [id number] [place] [address] 51890- 9764 September, Mood disorder F39 ; Anxiety F41.9 and Anger reaction R45.4 [place] [address] [id number] [place] [address] 08013- 6040 September, Diabetes type 2, controlled E11.9 ; Edema, unspecified type R60.9 and Fatigue, unspecified type R53.83 [place] [address] [id number] [place] [address] 38951- 8820 Aug, Mood disorder F39 and Generalized anxiety disorder F41.1 [facility] [address] [id number] [place] [address] 60960- 5457 Aug, Diabetes type 2, controlled E11.9 ; Sinusitis J32.9 and Mood disorder F39 [facility] [id number] [place] [address] 60009- 4256 15 Aug, 2015 Lupus erythematosus L93.0 [facility] [address] [id number] [place] [address] 15313- 8234 14 Aug, 2015 [facility] [address] [id number] [place] [address] 03879- 4995 Aug, [facility] [address] [id number] [place] [address] 37162- 2316 Jul, Diabetes type 2, controlled E11.9 [facility] [id number] [place] [address] 93430- 8322 Jul, Mood disorder F39 and Depression F32.9 [facility] [address] [place] [address]- 5715 Jul, Lupus erythematosus L93.0 and Diabetes type 2, controlled E11.9 [facility] [id number] [place] [address] 98610- 0006 Jul, Mood disorder F39 and Anxiety F41.9 [facility] [id number] [place] [address] 92996 2546 Jul, [facility] [id number] [place] [address] 55204 2541 Jul, [facility] [id number] [place] [address] 08375- 0318 Jun, Mood disorder F39 and Anxiety F41.9 [facility] [id number] [place] [address] 57455- 4306 Jun, Mood disorder F39 [facility] [id number] [place] [address] 28834- 8018 Jun, [facility] [address] [place] [address] 82570- 0492 Jun, [facility] [address] [place] [address] 59465- 0473 Jun, Mood disorder F39 [facility] [address], [place] [address]- 2276 Jun, [facility] [address], [place] [address]- 0604 May, [facility] [address], [place] [address]- 1714 May, [facility] [id number] [place] [address] 37585- 0626 May, [facility] [address], [place] [address]- 1014 May, [facility] [id number] [place] [address] 04514- 2216 May, Anxiety F41.9 ; Dermatomyositis M33.90 and Diabetes type 2, controlled E11.9 [facility] [id number] [place] [address] 04651 -8932 May, Sinusitis J32.9 and Cough R05 [facility] [id number] [place] [address] 41517- 2239 May, Mood disorder F39 [facility] [id number] [place] [address] 04135- 6224 May, Adjustment disorder with mixed anxiety and depressed mood F43.23 [facility] [address] [id number] [place] [address] 27474- 4967 Apr, [facility] [id number] [place] [address] 39361- 3793 Apr, [facility] [id number] [place] [address] 30318- 7073 Apr, Generalized anxiety disorder F41.1 and Mood disorder F39 [facility] [id number] [place] [address] 17693- 2104 Mar, [facility] [id number] [place] [address] 62168- 9665 Mar, [facility] [id number] [place] [address] 75408- 2606 Mar, [facility] [id number] [place] [address] 74208- 2495 Mar, Mood disorder F39 [facility] [id number] [place] [address] 60298- 8730 Feb, [facility] [id number] [place] [address] 11424- 5331 Feb, Diabetes E11.9 and Bronchitis J40 [facility] [id number] [place] [address] 85818- 3327 Feb, [facility] [address] [place] [address] 28634- 1251 Feb, [facility] [address] [id number] [place] [address] 03125- 8044 Feb, Major depression, recurrent, full remission F33.42 and KELLY ( generalized anxiety disorder) F41.1 [place] [id number] [place] [address] 53148- 5010 Feb, [facility] [address] [id number] [place] [address] 51400- 1463 Feb, Single major depressive episode, in partial or unspecified remission F32.5 [place] [id number] [place] [address] 12521- 3741 Jan, Fatigue 780.79 [place] [id number] [place] [address] 15886- 5617 Jan, [place] [address] [id number] [place] [address] 59741- 2203 Jan, Diabetes with other specified manifestations, type II or unspecified type, not stated as uncontrolled 250.80 [place] [address] [id number] [place] [address] 75580- 2621 Jan, [place] [address] [id number] [place] [address] 90080- 0075 Dec, Hot flashes 627.2 ; Memory loss 780.93 and Joint pain 719.40 [place] [address] [id number] [place] [address] 41841- 0288 Dec, Major depression, recurrent 296.30 ; Generalized anxiety disorder 300.02 ; Adjustment disorder with depressed mood 309.0 and No condition on Derby II V71.09 [facility] [address] [id number] [place] [address] 05256- 9816 Dec, [place] [address] [id number] [place] [address] 49733- 8397 Nov, Cognitive and neurobehavioral dysfunction 294.9 ; Major depressive disorder, recurrent episode, moderate degree 296.32 and Anxiety state , unspecified 300.00 [place] [address] [id number] [place] [address] 63257- 0665 Nov, [place] [address] [id number] [place] [address] 44519- 0126 Nov, Bronchitis 490 and Diabetes with other specified manifestations, type II or unspecified type, not stated as uncontrolled 250.80 [place] [id number] [place] [address] 56504- 5760 Nov, Major depressive disorder, recurrent episode, moderate 296.32 and Anxiety disorder, unspecified 300.00 [place] [id number] [place] [address] 24835- 0603 Nov, Anxiety, generalized 300.02 ; Intermittent explosive disorder 312.34 ; No condition on Derby II V71.09 and No condition on axis III V71.09 [place] [id number] [place] [address] 81578- 5661 Oct, Diabetes with other specified manifestations, type II or unspecified type, not stated as uncontrolled 250.80 ; Urinary tract infection, site not specified 599.0 and Bronchitis 490 [place] [address] [place] [address] 90570- 8129 Oct, Intermittent explosive disorder 312.34 ; Bipolar 1 disorder , depressed, moderate 296.52 ; Major depression, chronic 296.20 ; No condition on Derby II V71.09 and No condition on axis III V71.09 [place] [address] [place] [address] 66178- 8319 Oct, Major depressive disorder, recurrent episode, moderate 296.32 ; Anxiety state 300.00 ; Cognitive decline 294.9 and No condition on Derby II V71.09 [place] [address], [place] [address]- 0195 Oct, [place] [address] [id number] [place] [address] 01366- 8116 Oct, Major depressive disorder, recurrent episode, moderate 296.32 ; Anxiety disorder, unspecified 300.00 and Persistent disorder of initiating or maintaining sleep 307.42 [facility] [id number] [place] [address] 36603- 7876 September, Diabetes with other specified manifestations, type II or unspecified type, not stated as uncontrolled 250.80 ; Memory loss 780.93 and Cognitive complaints 799.59 [facility] [id number] [place] [address] 81899- 2966 September, No condition on Derby II V71.09 ; Major depression, recurrent 296.30 and Persistent mood [affective] disorder, unspecified 296.90 [facility] [id number] [place] [address] 92460- 2020 Aug, [facility] [id number] [place] [address] 84247- 3076 Aug, [facility] [id number] [place] [address] 80242- 5679 Aug, [facility] [id number] [place] [address] 37036- 1866 Jul, [facility] [id number] [place] [address] 50603- 9476 Jul, [facility] [address] [place] [address] 27003- 2136 Jul, [facility] [id number] [place] [address] 25698- 2546 Jul, [facility] [address] [place] [address] 19206- 2546 Jul, [facility] [id number] [place] [address] 02317- 8716 Jun, [facility] [address] [address]- 2546 Jun, [facility] [address] [id number] [place] [address]- 3860 Jun, 2014 [facility] [place] [facility] [address] [id number] [place] [address]- 4579 Jun, 2014 [facility] [place] [facility] [address] [id number] [place] [address]- 9886 Jun, 2014 [facility] [place] [facility] [address] [facility] [id number] [place] [address]- 5571 Jun, 2014 [facility] [place] [facility] [address] [id number] [place] [address]- 7708 Jun, 2014 [facility] [place] [facility] [address] [id number] [place] [address]- 9635 Jun, 2014 [facility] [place] [facility] [address] [facility] [id number] [place] [address]- 1059 Jun, 2014 [facility] [place] [facility] [address] [facility] [id number] [place] [address]- 1404 Jun, 2014 [facility] [place] [facility] [address] [facility] [id number] [place] [address]- 7270 Jun, 2014 [facility] [place] [facility] [address] [facility] [id number] [place] [address]- 7335 Jun, 2014 [facility] [place] [facility] [address] [facility] [id number] [place] [address] Jun, [facility] [place] [facility] [address] [facility] [id number] [address] May, [facility] [place] [facility] [address] [facility] [id number] [place] [address] May, [facility] [place] [facility] [address] [facility] [id number] [place] [address] Apr, [facility] [place] [facility] [address] [facility] [id number] [address] Apr, [facility] [place] [facility] [address] [facility] [id number][place] [address] Apr, [facility] [place] [facility] [address] [id number] [place] [address] Apr, [facility] [place] [facility] [address] [id number] [place] [address] Apr, [facility] [place] [facility] [address] [id number] [place] [address] Apr, [facility] [place] [facility] [address] [id number] [place] [address] Apr, [facility] [place] [facility] [address] [id number] [place] [address] Apr, [facility] [place] [facility] [address] [id number] [place] [address] Apr, [facility] [place] [facility] [address] [id number] [place] [address] Apr, [facility] [place] [facility] [address] [id number] [place] [address] Apr, [facility] [place] [facility] [address] [id number] [place] [address] Apr, [facility] [place] [facility] [address] [id number] [place] [address] Apr, [facility] [place] [facility] [address] [id number] [place] [address] Apr, [facility] [place] [facility] [address] [id number] [place] [address] Apr, [facility] [place] [facility] [address] [id number] [place] [address] Apr, [facility] [place] [facility] [address] [id number] [place] [address] Apr, [facility] [place] [facility] [address] [id number] [place] [address] Apr, [facility] [place] [facility] [address] [id number] [place] [address] Apr, [facility] [place] [facility] [address] [id number] [place] [address] Apr, [facility] [place] [facility] [address] [id number] [place] [address] Mar, [facility] [place] [facility] [address] [id number] [place] [address] Mar, [facility] [place] [facility] [address] [id number] [place] [address] Mar, [facility] [place] [facility] [address] [id number] [place] [address] Mar, [facility] [place] [facility] [address] [id number] [place] [address] Mar, [facility] [place] [facility] [address] [id number] [place] [address] Mar, [facility] [place] [facility] [address] [id number] [place] [address] Mar, [facility] [place] [facility] [address] [id number] [place] [address] Mar, [facility] [place] [facility] [address] [id number] [place] [address] Mar, [facility] [place] [facility] [address] [id number] [place] [address] Mar, [facility] [place] [facility] [address] [id number] [place] [address] Mar, [facility] [place] [facility] [address] [id number] [place] [address] 8700 Mar, [facility] [place] [facility] [address] [id number] [place] [address] Mar, [facility] [place] [facility] [address] [id number] [place] [address]136 Feb, [facility] [place] [facility] [address] [id number] [place] [address] 2330 Feb, [facility] [place] [facility] [address] [id number] [place] [address]- 7467 Feb, [facility] [place] [facility] [address] [id number] [place] [address] 8[address] Feb, [facility] [place] [facility] [address] [id number] [place] [address] 8650 Feb, [facility] [place] [facility] [address] [id number] [place] [address]- 9741 Feb, [facility] [place] [facility] [address] [id number] [place] [address] 1460 Feb, [facility] [place] [facility] [address] [id number] [place] [address]- 6311 Feb, [facility] [place] [facility] [address] [id number] [place] [address]- 5834 Feb, [facility] [place] [facility] [address] [id number] [place] [address]- 4820 Feb, [facility] [place] [facility] [address] [id number], [place] [address] 76[address] Feb, [facility] [place] [facility] [address] [id number], [place] [address] 10[address] Feb, [facility] [place] [facility] [address] [id number], [place] [address] 48[address] Feb, [facility] [place] [facility] [address] [id number] [place] [address]- 8489 Feb, [facility] [place] [facility] [address] [id number], [place] [address] 6[address] Feb, [facility] [place] [facility] [address] [id number] [place] [address] 6184 10 Jan, 2014 [facility] [place] [facility] [address] [id number] [place] [address]- 8636 08 Jan, 2013 [facility] [place] [facility] [address] [id number] [place] [address]- 7461 08 Jan, 2013 [facility] [place] [facility] [address] [id number] [place] [address]- 7718 Jan, [facility] [place] [facility] [address] [id number] [place] [address]- 3874 Jan, [facility] [place] [facility] [address] [id number] [place] [address]- 5334 Dec, [facility] [place] [facility] [address] [id number] [place] [address]- [address]3 Dec, [facility] [place] [facility] [address] [id number] [place] [address]- 6635 Dec, [facility] [place] [facility] [address] [id number] [place] [address]- 3840 Dec, [facility] [place] [facility] [address] [id number] [place] [address]- 9648 Nov, [facility] [place] [facility] [address] [id number] [place] [address]- 5283 Nov, [facility] [place] [facility] [address] [id number] [place] [address]- 1986 Nov, [facility] [place] [facility] [address] [id number] [place] [address]- 3724 Nov, [facility] [place] [facility] [address] [id number] [place] [address]- 3689 Nov, [facility] [place] [facility] [address] [id number] [place] [address]- 0484 Nov, [facility] [place] [facility] [address] [id number] [place] [address]- 2097 Nov, [facility] [place] [facility] [address] [id number] [place] [address]- 5657 Nov, [facility] [place] [facility] [address] [id number] [place] [address]- 3044 Nov, [facility] [place] [facility] [address] [id number] [place] [address]- 8745 Nov, [facility] [place] [facility] [address] [id number] [place] [address]- 3347 Oct, [facility] [place] [facility] [address] [id number] [place] [address]- 1755 Oct, [facility] [place] [facility] [address] [id number] [place] [address]- 7884 September, [facility] [place] [facility] [address] [id number] [place] [address]- 0170 September, [facility] [place] [facility] [address] [id number] [place] [address]- 8942 September, [facility] [place] [facility] [address] [id number] [place] [address]- 3590 September, [facility] [place] [facility] [address] [id number] [place] [address]- 8353 Aug, [facility] [place] [facility] [address] [id number] [place] [address]- 5220 Aug, [facility] [place] [facility] [address] [id number] [place] [address]- 1462 Aug, [facility] [place] [facility] [address] [id number] [place] [address]- 2415 Jul, [facility] [place] [facility] [address] [id number] [place] [address]- 3216 24 Jul, 2013 [facility] [place] [facility] [address] [id number] [place] [address]- 4054 Jul, [facility] [place] [facility] [address] [id number] [place] [address]- 6264 Jul, [facility] [place] [facility] [address] [id number] [place] [address]- 3000 May, [facility] [place] [facility] [address] [id number] [place] [address]- 4664 May, [facility] [place] [facility] [address] [id number] [place] [address]- 4534 May, [facility] [place] [facility] [address] [id number] [place] [address]- 9571 Mar, [facility] [place] [facility] [address] [id number] [place] [address]- 6456 Mar, [facility] [place] [facility] [address] [id number] [place] [address]- 7154 Mar, [facility] [place] [facility] [address] [id number] [place] [address]- 8589 Mar, [facility] [place] [facility] [address] [id number] [place] [address]- 9207 16 Feb, 2013 [facility] [place] [facility] [address] [id number] [place] [address]- 9787 16 Feb, 2013 [facility] [place] [facility] [address] [id number] [place] [address]- 6590 Feb, [facility] [place] [facility] [address] [id number] [place] [address]- 9054 16 Jan, 2013 [facility] [place] [facility] [address] [id number] [place] [address]- 4951 12 Jan, 2013 [facility] [place] [facility] [address] [id number], [place] [address] 3207 Jan, [facility] [place] [facility] [address] [id number] [place] [address]- 1554 Dec, [facility] [place] [facility] [address] [id number] [place] [address]- 6156 Dec, [facility] [place] [facility] [address] [id number] [place] [address] 2542 Dec, [facility] [place] [facility] [address] [id number] [place] [address]- 3195 Dec, [facility] [address] [id number] [place] [address]- 9324 Nov, [facility] [address] [id number] [place] [address]- 7439 Oct, [facility] [address] [id number] [place] [address]- 7786 Oct, [facility] [address] [id number] [place] [address]- 9070 September, [facility] [address] [id number] [place] [address]- 4165 September, [facility] [address] [id number] [place] [address]- 0696 September, [facility] [address] [id number] [place] [address]- 4489 Aug, [facility] [address] [id number] [place] [address]- 9979 Aug, [facility] [address] [id number] [place] [address]- 1355 Aug, [facility] [address] [id number] [place] [address]- 4453 Aug, [facility] [address] [id number] [place] [address]- 3570 26 Jul, 2012 [facility] [address] [id number] [place] [address]- 8540 25 Jul, 2012 [facility] [address] [id number] [place] [address]- 0846 21 Jul, 2012 [facility] [address] [id number] [place] [address]- 6120 15 Jul, 2012 [facility] [address] [id number] [place] [address]- 0439 14 Jul, 2012 [facility] [address] [id number] [place] [address]- 9036 13 Jul, 2012 [facility] [place] [facility] [address] [id number] [place] [address]- 6747 Jul, [facility] [place] [facility] [address] [id number] [place] [address]- 5025 06 Jun, 2012 [facility] [place] [facility] [address] [id number] [place] [address]- 9657 Jun, [facility] [place] [facility] [address] [id number] [place] [address]- 3271 Jun, [facility] [place] [facility] [address] [id number] [place] [address]- 2393 Jun, [facility] [place] [facility] [address] [id number] [place] [address]- 1164 May, [facility] [place] [facility] [address] [id number] [place] [address]- 0669 May, [facility] [place] [facility] [address] [id number] [place] [address]- 7102 May, [facility] [place] [facility] [address] [id number] [place] [address]- 3065 May, [facility] [place] [facility] [address] [id number] [place] [address]- 9395 May, [facility] [place] [facility] [address] [id number], [place] [address]- 8506 Apr, [facility] [place] [facility] [address] [id number] [place] [address]- 5891 Apr, [facility] [place] [facility] [address] [id number] [place] [address]- 5835 Mar, [facility] [place] [facility] [address] [id number] [place] [address]- 7667 Mar, [facility] [place] [facility] [address] [id number] [place] [address]- 5797 Mar, [facility] [place] [facility] [address] [id number] [place] [address]- 1261 Mar, [facility] [place] [facility] [address] [id number] [place] [address]- 4810 Mar, [facility] [place] [facility] [address] [id number] [place] [address]- 9784 Mar, [facility] [place] [facility] [address] [id number] [place] [address]- 3435 Mar, [facility] [place] [facility] [address] [id number] [place] [address]- 3570 Mar, [facility] [place] [facility] [address] [id number] [place] [address]- 2555 Mar, [facility] [place] [facility] [address] [id number] [place] [address]- 2115 Mar, [facility] [place] [facility] [address] [id number] [place] [address]- 8932 Feb, [facility] [place] [facility] [address] [id number] [place] [address]- 5391 Feb, [facility] [place] [facility] [address] [facility] [id number] [place] [address]- 0852 Feb, [facility] [place] [facility] [address] [id number] [place] [address]- 0772 Feb, [facility] [place] [facility] [address] [id number], [place] [address]- 0248 Feb, [facility] [place] [facility] [address] [id number] [place] [address]- 6637 Feb, [facility] [place] [facility] [address] [facility] [id number] [place] [address]- 5826 Feb, [facility] [place] [facility] [address] [facility] [id number][place] [address]- 4047 Jan, [facility] [place] [facility] [address] [id number] [place] [address]- 2913 Jan, [facility] [place] [facility] [address] [id number] [place] [address]- 8017 Dec, [facility] [place] [facility] [address] [id number] [place] [address]- 6156 Dec, [facility] [place] [facility] [address] [id number] [place] [address]- 5656 Dec, [facility] [place] [facility] [address] [id number] [place] [address]- 2845 Dec, [facility] [place] [facility] [address] [id number] [place] [address]- 4572 Dec, [facility] [place] [facility] [address] [id number] [place] [address]- 6228 Dec, [facility] [place] [facility] [address] [id number] [place] [address]- 4816 Nov, [facility] [place] [facility] [address] [id number] [place] [address]- 5733 Nov, [facility] [place] [facility] [address] [id number] [place] [address]- 4082 Nov, [facility] [place] [facility] [address] [id number] [place] [address]- 6472 Nov, [facility] [place] [facility] [address] [id number] [place] [address]- 7841 September, [facility] [place] [facility] [address] [id number] [place] [address]- 5599 September, [facility] [place] [facility] [address] [id number] [place] [address]- 3459 September, [facility] [place] [facility] [address] [id number] [place] [address]- 4084 Jul, [facility] [place] [facility] [address] [id number] [place] [address]- 9911 29 Jun, 2011 [facility] [address] [id number], [place] [address]- 1154 20 Jun, 2011 [facility] [id number], [place] [address]- 0116 13 Jun, 2011 [facility] [id number], [place] [address]- 1427 14 Apr, 2011 [facility] [id number], [place] [address]- 8065 28 Mar, 2011 [facility] [id number], [place] [address]- 1492 Mar, [facility] [id number] 16[address] 31 Feb, 2011 [facility] [id number], [place] [address]- 2087 Feb, [facility] [id number], [place] [address]- 1860 11 Feb, 2011 [facility] [address] [id number], [place] [address]- 2469 Jul, [facility] [address] [id number], [place] [address]- 4652 20 Feb, 2008 IMMUNIZATIONS No Known Immunizations SOCIAL HISTORY Never Assessed REASON FOR VISIT Phone call PLAN OF CARE VITAL SIGNS MEDICATIONS [...]
--- OUTSIDE RECORDS SUMMARY | 2018-02-02 23:54 | XMS REPORT ---
Author Author MACY TAMAYO Organization [facility] Address [address] [place] [address] Care Team Providers Care Knit Tubing Dyer Name Role Phone MACY TAMAYO Unavailable PROBLEMS Type Condition ICD9-CM Code [id number] Code Onset Dates Condition Status SNOMED Code Problem Plantar warts B07.0 Active 11769594 Problem Lumbago with sciatica, left side M54.42 Active 951685932 Problem Plantar wart of both feet B07.0 Active [id number] Problem Morbid (severe) obesity due to excess calories E66.01 Active 451926689 Problem Dermatomyositis M33.90 Active 188304862 Problem Tachycardia with heart rate 121-140 beats per minute R00.0 Active 3307295 Problem Controlled type 2 diabetes mellitus without complication, without long -term current use of insulin E11.9 Active 630065737 Problem Enlarged thyroid gland E04.9 Active 8640577 Problem Body mass index (BMI) of 45.0-49.9 in adult Z68.42 Active 297705570 Problem Menopause Z78.0 Active 159262944 Problem Allergic rhinitis due to pollen J30.1 Active 81066246 Problem Osteoarthritis of right knee, unspecified osteoarthritis type M17.9 Active 652103111 Problem Anxiety F41.9 Active 05478797 Problem Mood disorder F39 Active 18149360 Problem Other chronic pain G89.29 Active 23306829 Problem Diabetes type 2, controlled E11.9 Active 07654604 Problem Arthritis M19.90 Active 6204276 ALLERGIES No Information ENCOUNTERS Encounter Location Date Diagnosis [facility] [address] [facility] [id number], [place] [address] Nov, [facility] [address] [id number] [address] Oct, [facility] [address] [facility] [id number], [place] [address] Oct, [place] [id number] [place] [address] 91029- 7904 Oct, Acute right ankle pain M25.571 and Plantar wart of both feet B07.0 [place] [address] [address]- 2468 September, Other chronic pain G89.29 [place] [address] 41570- 6232 September, Other chronic pain G89.29 [place] [address] 97373- 7610 September, Other chronic pain G89.29 [place] [address] 93584- 0513 Aug, Mood disorder F39 [place] [address] 78237- 1689 Aug, Other chronic pain G89.29 ; Controlled type 2 diabetes mellitus without complication, without long-term current use of insulin E11.9 ; Low back pain M54.5 and Tinea corporis B35.4 [place] [address] 80569- 4162 Aug, Mood disorder F39 and Anxiety F41.9 [place] [address] 15462- 2780 Aug, Mood disorder F39 and Anxiety F41.9 [place] [address] 27583- 1817 Jul, [facility] [address] [address] Jul, Scabies B86 and BMI 45.0-49.9, adult Z68.42 [place] [address] 71286- 3272 Jul, [place] [address] [place] [address] 5935 Jul, Mood disorder F39 and Anxiety F41.9 [facility] [address] 69[address]- 2554 Jul, [facility] [address] [address] 27 Jun, 2017 Bronchitis J40 ; Dark urine R82.99 and BMI 45.0-49.9, adult Z68.42 [place] [address] 45536- 46[address] 14 Jun, 2017 Acute pain of right shoulder M25.511 and Acute pain of right knee M25.561 [place] [address] 80830- 3416 May, BMI 40.0-44.9, adult Z68.41 ; Controlled type 2 diabetes mellitus without complication, without long-term current use of insulin E11.9 ; Muscle cramping R25.2 ; Hot flashes R23.2 ; Mood disorder F39 ; Anxiety F41.9 and Morbid (severe) obesity due to excess calories E66.01 [place] [address] 17180- 7732 May, BMI 40.0-44.9, adult Z68.41 ; Controlled type 2 diabetes mellitus without complication, without long-term current use of insulin E11.9 ; Muscle cramping R25.2 and Hot flashes R23.2 [place] [id number] [place] [address] 33051- 9996 May, Tachycardia with heart rate 121-140 beats per minute R00.0 ; Morbid (severe) obesity due to excess calories E66.01 ; Diabetes type 2, controlled E11.9 and Enlarged thyroid gland E04.9 [place] [id number] [place] [address] 78953- 1559 May, Encounter for well woman exam with [...] Dysuria R30.0 and Screening breast examination Z12.31 [place] [address] 65004- 7884 Apr, Mood disorder F39 ; Other chronic pain G89.29 and Anxiety F41.9 [place] [address] 20198- 3129 Apr, Lumbago with sciatica, left side M54.42 and Other chronic pain G89.29 [place] [id number] [place] [address] 91022- 4184 Apr, Lupus erythematosus L93.0 [place] [address] 41942- 9125 Mar, Plantar wart of both feet B07.0 [place] [address] 27583- 4961 Mar, Lupus erythematosus L93.0 and Sinus drainage J34.89 [place] [id number] [place] [address] 00288- 9644 Mar, Mood disorder F39 ; Other chronic pain G89.29 and Anxiety F41.9 [facility] [id number] [place] [address] 38101- 7009 Mar, Mood disorder F39 ; Arthritis M19.90 and Plantar warts B07.0 [place] [address] 93252- 3255 Feb, Lupus erythematosus L93.0 [facility] [address] 61441- 3483 Feb, Other chronic pain G89.29 [place] [id number] [place] [address] 55801- 5367 Feb, Mood disorder F39 and Anxiety F41.9 [facility] [id number] [place] [address] 97147- 4156 Jan, [facility] [id number] [place] [address] 76286- 6443 Jan, Mood disorder F39 [facility] [address] 83862- 5577 Dec, Nail, ingrown L60.0 [place] [address] 99561- 1769 Dec, Nail, ingrown L60.0 [facility] [id number] [place] [address] 30976- 1868 Nov, Mood disorder F39 and Anxiety F41.9 [place] [address] 06900- 4263 Nov, Sinus drainage J34.89 ; Hot flashes R23.2 ; Anxiety F41.9 and Diabetes type 2, controlled E11.9 [place] [id number] [place] [address] 74376- 5698 Nov, Nail, ingrown L60.0 [facility] [id number] [place] [address] 98694- 6969 Oct, Anxiety F41.9 and Mood disorder F39 [facility] [id number] [place] [address] 67380- 5738 Oct, Nail, ingrown L60.0 and Anxiety F41.9 [facility] [address] 76677- 7952 Oct, Lupus erythematosus L93.0 [facility] [id number] [place] [address] 34600- 4651 September, [facility] [address] [place] [address]- 8158 September, [facility] [id number] [place] [address] 21701- 7211 September, Lupus erythematosus L93.0 [facility] [id number] [place] [address] 42679- 8800 Aug, [facility] [id number] [place] [address] 69864- 8486 Aug, Mood disorder F39 and Anxiety F41.9 [facility] [id number] [place] [address] 31609- 8177 Aug, Lupus erythematosus L93.0 ; Diabetes type 2, controlled E11.9 and Localized edema R60.0 [facility] [id number] [place] [address] 97142- 3671 Aug, [facility] [id number] [place] [address] 23148- 7456 Jul, Anxiety F41.9 and Mood disorder F39 [facility] [id number] [place] [address] 60461- 5654 Jul, Diabetes type 2, controlled E11.9 [facility] [address] [place] [address] 41403- 8418 Jun, Anxiety F41.9 [facility] [address] [place] [address] 47173- 5970 May, [facility] [id number] [place] [address] 35219- 2133 May, [facility] [id number] [place] [address] 42441- 1574 May, Nausea R11.0 ; Other chronic pain G89.29 and Pain in right knee M25.561 [facility] [address] [place] [address] 33835- 7051 May, [facility] [id number] [place] [address] 54018- 5970 Apr, Tear of medial meniscus of right knee, current, unspecified tear type, subsequent encounter S83.241D and Tear of lateral meniscus of right knee, current, unspecified tear type, subsequent encounter S83.281D [facility] [id number] [place] [address] 38080- 5706 Apr, Anxiety F41.9 and Mood disorder F39 [facility] [id number] [place] [address] 12802- 4321 Apr, Anxiety F41.9 [facility] [id number] [place] [address] 98125- 5020 Apr, [facility] [id number] [place] [address] 39945- 8323 Mar, [facility] [id number] [place] [address] 30725- 5861 Mar, Lupus erythematosus L93.0 and Diabetes type 2, controlled E11.9 [facility] [id number] [place] [address] 19581- 1082 Mar, Mood disorder F39 [facility] [id number] [place] [address] 63070- 0367 Mar, Tear of lateral meniscus of right knee, current, unspecified tear type, initial encounter S83.281A and Osteoarthritis of right knee, unspecified osteoarthritis type M17.9 [facility] [id number] [place] [address] 29092- 5993 Mar, [facility] [id number] [place] [address] 39878- 1919 Feb, Mood disorder F39 [facility] [id number] [place] [address] 43105- 0285 Feb, Rash R21 [facility] [address] [place] [address] 61837- 6543 Feb, [facility] [address] [place] [address] 26652- 5398 Jan, Other chronic pain G89.29 and Muscle spasm M62.838 [facility] [id number] [place] [address] 61326- 7412 Jan, Mood disorder F39 [facility] [address] [place] [address] 94484- 1237 Jan, Pain in right knee M25.561 ; Other chronic pain G89.29 and Muscle spasm M62.838 [facility] [id number] [place] [address] 01121- 3209 Dec, [facility] [id number] [place] [address] 89071- 5998 Dec, [facility] [id number] [place] [address] 13345- 5038 Nov, [facility] [id number] [place] [address] 48731- 9590 Nov, Mood disorder F39 [facility] [id number] [place] [address] 06177- 6793 Nov, Diabetes type 2, controlled E11.9 ; Bronchitis J40 ; Edema, unspecified type R60.9 ; Weight gain R63.5 and Right knee pain, unspecified chronicity M25.561 [facility] [id number] [place] [address] 99715- 4533 Oct, Mood disorder F39 [facility] [id number] [place] [address] 84667- 9046 Oct, Lupus erythematosus L93.0 and Bilateral edema of lower extremity R60.0 [facility] [id number] [place] [address] 76779- 5046 Oct, Mood disorder F39 and Anxiety F41.9 [facility] [address] [place] [address] 07029- 2180 September, Mood disorder F39 ; Anxiety F41.9 and Anger reaction R45.4 [facility] [id number] [place] [address] 57883- 4672 September, Diabetes type 2, controlled E11.9 ; Edema, unspecified type R60.9 and Fatigue, unspecified type R53.83 [facility] [id number] [place] [address] 16244- 1830 Aug, Mood disorder F39 and Generalized anxiety disorder F41.1 [facility] [id number] [place] [address] 95995- 1155 Aug, Diabetes type 2, controlled E11.9 ; Sinusitis J32.9 and Mood disorder F39 [facility] [id number] [place] [address] 07694- 3085 Aug, Lupus erythematosus L93.0 [facility] [id number] [place] [address] 56636- 5002 Aug, [facility] [id number] [place] [address] 80843- 2908 Aug, [facility] [id number] [place] [address] 04359- 5122 Jul, Diabetes type 2, controlled E11.9 [facility] [id number] [place] [address] 94667- 3093 Jul, Mood disorder F39 and Depression F32.9 [facility] [id number] [place] [address] 27499- 8283 Jul, Lupus erythematosus L93.0 and Diabetes type 2, controlled E11.9 [facility] [id number] [place] [address] 84057- 2801 Jul, Mood disorder F39 and Anxiety F41.9 [facility] [id number] [place] [address] 53893- 6456 Jul, [facility] [id number] [place] [address] 28292- 1736 Jul, [facility] [address] [address]- 5227 Jun, Mood disorder F39 and Anxiety F41.9 [facility] [id number] [place] [address] 61874- 9183 Jun, Mood disorder F39 [facility] [id number] [place] [address] 87961- 7291 Jun, [facility] [id number] [place] [address] 33675- 8700 Jun, [facility] [id number] [place] [address] 79696- 7932 Jun, Mood disorder F39 [facility] [id number] [place] [address] 57697- 2454 Jun, [facility] [id number] [place] [address] 19078- 2195 May, [facility] [id number] [place] [address] 04928- 9989 May, [facility] [id number] [place] [address] 86217- 4083 May, [facility] [id number] [place] [address] 86827- 2937 May, [facility] [id number] [place] [address] 31854- 5143 May, Anxiety F41.9 ; Dermatomyositis M33.90 and Diabetes type 2, controlled E11.9 [facility] [address] [place] [address] 66201 -0989 May, Sinusitis J32.9 and Cough R05 [facility] [address] [place] [address] 05743- 1793 May, Mood disorder F39 [facility] [id number] [place] [address] 93046- 5292 May, Adjustment disorder with mixed anxiety and depressed mood F43.23 [facility] [id number] [place] [address] 82823- 9473 Apr, [facility] [id number] [place] [address] 45222- 4780 Apr, [facility] [id number] [place] [address] 63465- 3731 Apr, Generalized anxiety disorder F41.1 and Mood disorder F39 [facility] [id number] [place] [address] 84864- 6481 Mar, [facility] [id number] [place] [address] 58038- 6632 Mar, [facility] [id number] [place] [address] 74141- 3988 Mar, [facility] [id number] [place] [address] 84426- 0288 Mar, Mood disorder F39 [facility] [id number] [place] [address] 92997- 7483 Feb, [facility] [id number] [place] [address] 83967- 8548 Feb, Diabetes E11.9 and Bronchitis J40 [facility] [id number] [place] [address] 16127- 6936 Feb, [facility] [id number] [place] [address] 19063- 3534 Feb, [facility] [id number] [place] [address] 93673- 3524 Feb, Major depression, recurrent, full remission F33.42 and KELLY ( generalized anxiety disorder) F41.1 [facility] [id number] [place] [address] 79119- 2067 Feb, [facility] [address] [place] [address]- 6723 Feb, Single major depressive episode, in partial or unspecified remission F32.5 [place] [id number] [place] [address] 73952- 9244 Jan, Fatigue 780.79 [place] [id number] [place] [address] 27480- 1915 Jan, [place] [id number] [place] [address] 57977- 4281 Jan, Diabetes with other specified manifestations, type II or unspecified type, not stated as uncontrolled 250.80 [place] [id number] [place] [address] 09463- 4494 Jan, [place] [id number] [place] [address] 29884- 3373 Dec, Hot flashes 627.2 ; Memory loss 780.93 and Joint pain 719.40 [place] [id number] [place] [address] 07676- 4367 Dec, Major depression, recurrent 296.30 ; Generalized anxiety disorder 300.02 ; Adjustment disorder with depressed mood 309.0 and No condition on [place] II V71.09 [place] [id number] [place] [address] 58867- 2578 Dec, [place] [id number] [place] [address] 98161- 4254 Nov, Cognitive and neurobehavioral dysfunction 294.9 ; Major depressive disorder, recurrent episode, moderate degree 296.32 and Anxiety state , unspecified 300.00 [place] [id number] [place] [address] 37897- 7792 Nov, [place] [id number] [place] [address] 24362- 5510 Nov, Bronchitis 490 and Diabetes with other specified manifestations, type II or unspecified type, not stated as uncontrolled 250.80 [place] [id number] [place] [address] 57665- 9983 Nov, Major depressive disorder, recurrent episode, moderate 296.32 and Anxiety disorder, unspecified 300.00 [place] [id number] [place] [address] 85024- 5575 Nov, Anxiety, generalized 300.02 ; Intermittent explosive disorder 312.34 ; No condition on [place] II V71.09 and No condition on axis III V71.09 [address] [place] [id number] [place] [address] 48535- 0587 Oct, Diabetes with other specified manifestations, type II or unspecified type, not stated as uncontrolled 250.80 ; Urinary tract infection, site not specified 599.0 and Bronchitis [id number] [place] [address] 65168- 9086 Oct, Intermittent explosive disorder 312.34 ; Bipolar 1 disorder , depressed, moderate 296.52 ; Major depression, chronic 296.20 ; No condition on [place] II V71.09 and No condition on axis III V71.09 [place] [place] [id number] [place] [address]25- 7687 Oct, Major depressive disorder, recurrent episode, moderate 296.32 ; Anxiety state 300.00 ; Cognitive decline 294.9 and No condition on [place] II V71.09 [place] [address] [id number] [place] [address]16- 8933 Oct, [address] [place] [id number] [place] [address] 16926- 4781 Oct, Major depressive disorder, recurrent episode, moderate 296.32 ; Anxiety disorder, unspecified 300.00 and Persistent disorder of initiating or maintaining sleep 307.42 [address] [place] [id number] [place] [address] 96471- 2665 September, Diabetes with other specified manifestations, type II or unspecified type, not stated as uncontrolled 250.80 ; Memory loss 780.93 and Cognitive complaints 799.59 [address] [place] [id number] [place] [address] 66158- 4766 September, No condition on [place] II V71.09 ; Major depression, recurrent 296.30 and Persistent mood [affective] disorder, unspecified 296.90 [facility] [id number] [place] [address] Aug, [facility] [id number] [address] Aug, [facility] [id number] [place] [address] 61328- 2423 Aug, [facility] [id number] Jul, [facility] [id number] [place] [address] Jul, [facility] [id number], [place] [address] Jul, [facility] [id number], [place] [address] Jul, [facility] [id number], [place] [address] Jul, [facility] [id number], [place] [address] Jun, [facility] [id number], [place] [address] Jun, [facility] [id number] [place] [address] Jun, [facility] [id number], [place] [address]597 Jun, [facility] [id number] [address] Jun, [facility] [id number] [address] [address] Jun, [facility] [id number] [place] [address] Jun, 2014 [facility] [place] [facility] [address] [id number] [place] [address]- 1206 Jun, 2014 [facility] [place] [facility] [address] [id number] [place] [address] 2546 Jun, 2014 [facility] [place] [facility] [address] [facility] [id number] [place] [address]- [address]76 Jun, 2014 [facility] [place] [facility] [address] [id number] [place] [address] Jun, 2014 [facility] [place] [facility] [address] [id number] [place] [address] Jun, 2014 [facility] [place] [facility] [address] [facility] [id number] [place] [address] Jun, 2014 [facility] [place] [facility] [address] [facility] [id number] [place] [address] May, [facility] [place] [facility] [address] [facility] [id number] [place] [address] 8994 May, [facility] [place] [facility] [address] [facility] [id number] [place] [address] 5770 Apr, [facility] [place] [facility] [address] [facility] [id number] [place] [address]- 1856 Apr, [facility] [place] [facility] [address] [facility] [id number] [place] [address]- 2543 Apr, [facility] [place] [facility] [address] [facility] [id number] [place] [address] 2546 Apr, [facility] [place] [facility] [address] [facility] [id number] [place] [address]- 2546 Apr, [facility] [place] [facility] [address] [facility] [id number] [place] [address] 2546 Apr, [facility] [place] [facility] [address] [facility] [id number] [place] [address]- 3359 Apr, [facility] [place] [facility] [address] [id number] [place] [address]- 7341 Apr, [facility] [place] [facility] [address] [id number] [place] [address]- 4268 Apr, [facility] [place] [facility] [address] [id number] [place] [address]- 8676 Apr, [facility] [place] [facility] [address] [id number] [place] [address]- 4953 Apr, [facility] [place] [facility] [address] [id number] [place] [address]- 3687 Apr, [facility] [place] [facility] [address] [id number] [place] [address]- 1304 Apr, [facility] [place] [facility] [address] [id number] [place] [address]- 0971 Apr, [facility] [place] [facility] [address] [id number] [place] [address]- 7207 Apr, [facility] [place] [facility] [address] [id number] [place] [address]- 0140 Apr, [facility] [place] [facility] [address] [id number] [place] [address]- 2917 Apr, [facility] [place] [facility] [address] [id number] [place] [address]- 5105 Apr, [facility] [place] [facility] [address] [id number], [place] [address]- 28[address] Apr, [facility] [place] [facility] [address] [id number] [place] [address]- 5598 Apr, [facility] [place] [facility] [address] [id number] [place] [address]- 9441 Mar, [facility] [place] [facility] [address] [id number] [place] [address]- 8508 Mar, [facility] [place] [facility] [address] [id number] [place] [address]- 3046 Mar, [facility] [place] [facility] [address] [id number] [place] [address]- 3975 Mar, [facility] [place] [facility] [address] [id number] [place] [address]- 0548 Mar, [facility] [place] [facility] [address] [id number] [place] [address]- 9094 Mar, [facility] [place] [facility] [address] [id number] [place] [address]- 5551 Mar, [facility] [place] [facility] [address] [id number] [place] [address]- 4089 Mar, [facility] [place] [facility] [address] [id number] [place] [address]- 1754 Mar, [facility] [place] [facility] [address] [id number] [place] [address]- 6394 Mar, [facility] [place] [facility] [address] [id number] [place] [address]- 2661 Mar, [facility] [place] [facility] [address] [id number] [place] [address]- 0607 Mar, [facility] [place] [facility] [address] [facility] [id number] [place] [address]- 9673 Mar, [facility] [place] [facility] [address] [id number] [place] [address]- 1110 Feb, [facility] [place] [facility] [address] [id number] [place] [address]- 5540 Feb, [facility] [place] [facility] [address] [id number] [place] [address]- 6011 30 Feb, 2014 [facility] [place] [facility] [address] [id number] [place] [address]- 3100 Feb, [facility] [place] [facility] [address] [id number], [place] [address]- 6340 Feb, [facility] [place] [facility] [address] [id number] [place] [address]- 0826 Feb, [facility] [place] [facility] [address] [id number] [place] [address]- 0784 Feb, [facility] [place] [facility] [address] [id number] [place] [address]- 5821 Feb, [facility] [place] [facility] [address] [id number] [place] [address]- 9521 Feb, [facility] [place] [facility] [address] [id number] [place] [address]- 5910 Feb, [facility] [place] [facility] [address] [id number] [place] [address]- 9990 Feb, [facility] [place] [facility] [address] [id number] [place] [address]- 3151 Feb, [facility] [place] [facility] [address] [id number] [place] [address]- 7958 Feb, [facility] [place] [facility] [address] [id number] [place] [address]- 0164 Feb, [facility] [place] [facility] [address] [id number] [place] [address]- 8460 07 Feb, 2014 [facility] [place] [facility] [address] [id number] [place] [address]- 6202 10 Jan, 2013 [facility] [place] [facility] [address] [id number] [place] [address]- 8736 08 Sep, 2013 [facility] [place] [facility] [address] [id number] [place] [address]- 4025 08 Sep, 2013 [facility] [place] [facility] [address] [id number] [place] [address]- 7162 08 Sep, 2013 [facility] [place] [facility] [address] [id number] [place] [address]- 0139 08 Sep, 2013 [facility] [place] [facility] [address] [id number] [place] [address]- 3696 Dec, [facility] [place] [facility] [address] [id number] [place] [address]- 3865 Dec, [facility] [place] [facility] [address] [id number] [place] [address]- 8494 Dec, [facility] [place] [facility] [address] [id number] [place] [address]- 5862 Dec, [facility] [place] [facility] [address] [id number] [place] [address]- 8380 Nov, [facility] [place] [facility] [address] [id number] [place] [address]- 1482 Nov, [facility] [place] [facility] [address] [id number] [place] [address]- 3251 Nov, [facility] [place] [facility] [address] [id number] [place] [address]- 8317 Nov, [facility] [place] [facility] [address] [id number] [place] [address]- 0120 Nov, [facility] [place] [facility] [address] [id number] [place] [address]- 8961 Nov, [facility] [place] [facility] [address] [id number] [place] [address]- 0210 Nov, [facility] [place] [facility] [address] [id number] [place] [address]- 6441 Nov, [facility] [place] [facility] [address] [id number] [place] [address]- 4572 Nov, [facility] [place] [facility] [address] [id number] [place] [address]- 5063 Nov, [facility] [place] [facility] [address] [id number] [place] [address]- 8954 Oct, [facility] [place] [facility] [address] [id number] [place] [address]- 5308 Oct, [facility] [place] [facility] [address] [id number] [place] [address]- 3605 September, [facility] [address] [id number] [place] [address]- 6508 September, [facility] [address] [id number] [place] [address]- 1316 September, [facility] [address] [id number] [place] [address]- 1929 September, [facility] [address] [id number] [place] [address]- 3409 16 Aug, 2013 [facility] [address] [id number] [place] [address]- 2528 Aug, [facility] [address] [id number] [place] [address]- 5414 Aug, [facility] [address] [id number] [place] [address]- 8678 Jul, [facility] [address] [id number] [place] [address]- 6272 24 Jul, 2013 [facility] [address] [id number] [place] [address]- 3936 Jul, [facility] [address] [id number] [place] [address]- 7776 Jul, [facility] [address] [id number] [place] [address]- 2484 May, [facility] [address] [id number] [place] [address]- 1136 May, [facility] [place] [facility] [address] [id number] [place] [address]- 4776 May, [facility] [place] [facility] [address] [id number] [place] [address]- 4186 15 Mar, 2013 [facility] [place] [facility] [address] [id number] [place] [address]- 9242 15 Mar, 2013 [facility] [place] [facility] [address] [id number] [place] [address]- 8789 Mar, [facility] [place] [facility] [address] [id number] [place] [address]- 8836 Mar, [facility] [place] [facility] [address] [id number] [place] [address]- 8564 Feb, [facility] [place] [facility] [address] [id number] [place] [address]- 0346 Feb, [facility] [place] [facility] [address] [id number] [place] [address]- 8969 Feb, [facility] [place] [facility] [address] [id number] [place] [address]- 3246 16 Jan, 2013 [facility] [place] [facility] [address] [id number] [place] [address]- 5521 Jan, [facility] [place] [facility] [address] [id number], [place] [address]- 2587 Jan, [facility] [place] [facility] [address] [id number] [place] [address]- 2225 Dec, [facility] [place] [facility] [address] [id number], [place] [address]- 1704 Dec, [facility] [place] [facility] [address] [id number], [place] [address]- 7576 Dec, [facility] [place] [facility] [address] [id number], [place] [address]- 6827 Dec, [facility] [place] [facility] [address] [id number], [place] [address]- 8972 Nov, [facility] [place] [facility] [address] [id number], [place] [address]- 6066 Oct, [facility] [place] [facility] [address] [id number], [place] [address]- 0483 Oct, [facility] [place] [facility] [address] [id number], [place] [address]- 0280 September, [facility] [address] [id number] [place] [address]- 8498 September, [facility] [address] [id number] [place] [address]- 2543 September, [facility] [address] [id number] [place] [address]- 5111 Aug, [facility] [address] [id number] [place] [address]- 4597 Aug, [facility] [address] [id number] [place] [address]- 0731 Aug, [facility] [address] [id number] [place] [address]- 0407 Aug, [facility] [address] [id number] [place] [address]- 4334 Jul, [facility] [address] [id number] [place] [address]- 2624 Jul, [facility] [address] [id number] [place] [address]- 6225 Jul, [facility] [address] [facility] [id number] [place] [address]- 1218 15 Jul, 2012 [facility] [address] [id number] [place] [address]- 8078 14 Jul, 2012 [facility] [address] [id number] [place] [address]- 8640 Jul, [facility] [address] [id number] [place] [address]- 0662 Jul, [facility] [place] [facility] [address] [id number] [place] [address]- 7717 Jun, [facility] [address] [facility] [id number] [place] [address]- 4274 Jun, [facility] [address] [id number] [place] [address]- 0353 Jun, [facility] [place] [facility] [address] [id number] [place] [address]- 7441 Jun, [facility] [place] [facility] [address] [id number] [place] [address]- 1027 May, [facility] [place] [facility] [address] [id number] [place] [address]- 0972 May, [facility] [place] [facility] [address] [id number] [place] [address]- 5959 May, [facility] [place] [facility] [address] [id number] [place] [address]- 5060 May, [facility] [place] [facility] [address] [id number] [place] [address]- 8543 May, [facility] [address] [id number] [place] [address]- 6402 Apr, [facility] [place] [facility] [address] [id number] [place] [address]- 3252 Apr, [facility] [place] [facility] [address] [id number] [place] [address]- 2521 Mar, [facility] [place] [facility] [address] [id number] [place] [address]- 3987 Mar, [facility] [place] [facility] [address] [id number] [place] [address]- 8198 Mar, [facility] [place] [facility] [address] [id number] [place] [address]- 6287 Mar, [facility] [place] [facility] [address] [id number] [place] [address]- 1189 Mar, [facility] [place] [facility] [address] [id number] [place] [address]- 1557 Mar, [facility] [place] [facility] [address] [id number] [place] [address]- 8876 Mar, [facility] [place] [facility] [address] [id number] [place] [address]- 4681 Mar, [facility] [place] [facility] [address] [id number] [place] [address]- 1216 Mar, [facility] [place] [facility] [address] [id number] [place] [address]- 0837 Mar, [facility] [place] [facility] [address] [id number] [place] [address]- 9058 Feb, [facility] [place] [facility] [address] [id number] [place] [address]- 4539 Feb, [facility] [place] [facility] [address] [id number] [place] [address]- 9755 Feb, [facility] [place] [facility] [address] [id number] [place] [address]- 3531 Feb, [facility] [place] [facility] [address] [id number] [place] [address]- 2753 Feb, [facility] [place] [facility] [address] [id number] [place] [address]- 2717 Feb, [facility] [place] [facility] [address] [id number] [place] [address]- 5577 Feb, [facility] [place] [facility] [address] [id number] [place] [address]- 7684 Jan, [facility] [place] [facility] [address] [id number] [place] [address]- 0580 Jan, [facility] [place] [facility] [address] [id number] [place] [address]- 5121 Dec, [facility] [place] [facility] [address] [id number] [place] [address]- 6237 Dec, [facility] [place] [facility] [address] [id number] [place] [address]- 4926 Dec, [facility] [place] [facility] [address] [id number] [place] [address]- 2216 17 Dec, 2011 [facility] [address] [id number] [place] [address]- 6204 Dec, [facility] [address] [id number] [place] [address]- 4136 Dec, [facility] [address] [id number] [place] [address]- 7083 Nov, [facility] [address] [id number] [place] [address]- 0904 Nov, [facility] [address] [id number] [place] [address]- 6599 Nov, [facility] [address] [id number] [place] [address]- 9936 Nov, [facility] [address] [id number] [place] [address]- 1247 September, [facility] [address] [id number] [place] [address]- 8518 September, [facility] [address] [id number] [place] [address]- 1284 September, [facility] [address] [id number] [place] [address]- 9574 Jul, [facility] [address] [id number] [place] [address]- 9986 Jun, [facility] [address] [id number] [place] [address]- 8566 Jun, [facility] [place] [facility] [address] [id number] [place] [address]- 5546 Jun, [facility] [address] [id number] [place] [address]- 8606 Apr, [facility] [address] [id number] [place] [address]- 4730 Mar, [facility] [address] [facility] [id number], [place] [address]- 9657 15 Mar, 2011 [facility] [address] [id number], [place] [address]- 6109 Feb, [facility] [address] [facility] [id number], [place] [address]- 5916 Feb, [facility] [address] [id number], [place] [address]- 2802 Feb, [facility] [address] [facility] [id number], [place] [address]- 2215 Jul, [facility] [address] [facility] [id number], [place] [address]- 0055 Feb, IMMUNIZATIONS No Known Immunizations SOCIAL HISTORY Never Assessed REASON FOR VISIT Refill request PLAN OF CARE VITAL SIGNS MEDICATIONS Medication Instructions Dosage Frequency Start Date End Date Duration Status Loratadine 10 mg Orally Once a day TAKE ONE TABLET BY MOUTH DAILY 24h 30 Active Omeprazole 20 mg Orally Once a day 1 capsule 24h 30 Active Lasix 20 mg Orally Once a day 1 tablet 24h Nov, 30 day(s) Active RESULTS No Results PROCEDURES [...]
--- OUTSIDE RECORDS SUMMARY | 2018-02-02 23:55 | XMS REPORT ---
Author Author MACY TAMAYO Organization [facility] Address [address] [place] [address] Care Team Providers Care Conference Director Name Role Phone MACY TAMAYO Unavailable PROBLEMS Type Condition ICD9-CM Code ATN11-IX Code Onset Dates Condition Status SNOMED Code Problem Plantar warts B07.0 Active 08838225 Problem Lumbago with sciatica, left side M54.42 Active 853336600 Problem Plantar wart of both feet B07.0 Active [id number] Problem Morbid (severe) obesity due to excess calories E66.01 Active 979746925 Problem Dermatomyositis M33.90 Active 312935165 Problem Tachycardia with heart rate 121-140 beats per minute R00.0 Active 0862017 Problem Controlled type 2 diabetes mellitus without complication, without long -term current use of insulin E11.9 Active 044408831 Problem Enlarged thyroid gland E04.9 Active 3899068 Problem Body mass index (BMI) of 45.0-49.9 in adult Z68.42 Active 915202197 Problem Menopause Z78.0 Active 585797199 Problem Allergic rhinitis due to pollen J30.1 Active 50851093 Problem Osteoarthritis of right knee, unspecified osteoarthritis type M17.9 Active 359638740 Problem Anxiety F41.9 Active 05748514 Problem Mood disorder F39 Active 65895310 Problem Other chronic pain G89.29 Active 64563093 Problem Diabetes type 2, controlled E11.9 Active 45872551 Problem Arthritis M19.90 Active 2486118 ALLERGIES No Information ENCOUNTERS Encounter Location Date Diagnosis [facility] [address] [facility] [id number] [address] Aug, [facility] [address] [place] [id number] [address] Aug, [facility] [id number] [address] Aug, [place] [id number] [place] [address] 28318- 9517 Jul, [facility] [place] [id number] [place] [address] 83738 -9880 Jul, Scabies B86 and BMI 45.0-49.9, adult Z68.42 [place] [address] [address]- [address] Jul, [place] [address] 06261- 5269 Jul, Mood disorder F39 and Anxiety F41.[address] 12095- 3191 Jul, [facility] [place] [id number] [place] [address] 34676 -7367 27 Jun, 2017 Bronchitis J40 ; Dark urine R82.99 and BMI 45.0-49.9, adult Z68.42 [place] [id number] [place] [address] 42320- 1675 14 Jun, 2017 Acute pain of right shoulder M25.511 and Acute pain of right knee M25.561 [place] [address] [id number] [place] [address] 26943- 4396 May, BMI 40.0-44.9, adult Z68.41 ; Controlled type 2 diabetes mellitus without complication, without long-term current use of insulin E11.9 ; Muscle cramping R25.2 ; Hot flashes R23.2 ; Mood disorder F39 ; Anxiety F41.9 and Morbid (severe) obesity due to excess calories E66.01 [place] [id number] [place] [address] 64430- 7173 May, BMI 40.0-44.9, adult Z68.41 ; Controlled type 2 diabetes mellitus without complication, without long-term current use of insulin E11.9 ; Muscle cramping R25.2 and Hot flashes R23.2 [place] [id number] [place] [address] 48001- 8984 May, Tachycardia with heart rate 121-140 beats per minute R00.0 ; Morbid (severe) obesity due to excess calories E66.01 ; Diabetes type 2, controlled E11.9 and Enlarged thyroid gland E04.9 [place] [address] [address] [id number] [place] [address] 61230- 6229 25 May, 2017 Encounter for well woman [...] Dysuria R30.0 and Screening breast examination Z12.31 [place] [address] [address] [id number] [place] [address] 94063- 9042 Apr, Mood disorder F39 ; Other chronic pain G89.29 and Anxiety F41.[address] 78368- 3842 Apr, Lumbago with sciatica, left side M54.42 and Other chronic pain G89.29 [place] [address] [id number] [place] [address] 87764- 2776 Apr, Lupus erythematosus L93.0 [place] [address] [id number] [place] [address] 31348- 5425 Mar, Plantar wart of both feet B07.0 [place] [address] 28187- 7248 24 Mar, 2017 Lupus erythematosus L93.0 and Sinus drainage J34.89 [place] [address] [address] [id number] [place] [address] 43333- 3375 09 Mar, 2017 Mood disorder F39 ; Other chronic pain G89.29 and Anxiety F41.9 [facility] [id number] [place] [address] 54012- 0207 Mar, Mood disorder F39 ; Arthritis M19.90 and Plantar warts B07.0 [facility] [id number] [place] [address] 26921- 3497 Feb, Lupus erythematosus L93.0 [facility] [address] 96491- 5635 Feb, Other chronic pain G89.29 [facility] [address] 64839- 5902 Feb, Mood disorder F39 and Anxiety F41.9 [facility] [address] 48902- 0742 Jan, [place] [address] 63619- 0302 Jan, Mood disorder F39 [facility] [id number] [place] [address] 60474- 9774 Dec, Nail, ingrown L60.0 [facility] [address] 38112- 5183 Dec, Nail, ingrown L60.0 [facility] [address] 52274- 7274 Nov, Mood disorder F39 and Anxiety F41.9 [facility] [id number] [place] [address] 08854- 0542 Nov, Sinus drainage J34.89 ; Hot flashes R23.2 ; Anxiety F41.9 and Diabetes type 2, controlled E11.9 [facility] [address] 87800- 5418 Nov, Nail, ingrown L60.0 [facility] [id number] [place] [address] 35205- 5133 Oct, Anxiety F41.9 and Mood disorder F39 [facility] [address] [address]- 4288 Oct, Nail, ingrown L60.0 and Anxiety F41.9 [facility] [id number] [place] [address] 66254- 6146 Oct, Lupus erythematosus L93.0 [facility] [id number] [place] [address] 72807- 1618 September, [facility] [id number] [place] [address] 98304- 0838 September, [facility] [id number] [place] [address] 34292- 2443 September, Lupus erythematosus L93.0 [facility] [id number] [place] [address] 90093- 3315 Aug, [facility] [id number] [place] [address] 38997- 1383 Aug, Mood disorder F39 and Anxiety F41.9 [facility] [id number] [place] [address] 95591- 0151 Aug, Lupus erythematosus L93.0 ; Diabetes type 2, controlled E11.9 and Localized edema R60.0 [facility] [id number] [place] [address] 72092- 3049 Aug, [facility] [id number] [place] [address] 00441- 6250 Jul, Anxiety F41.9 and Mood disorder F39 [facility] [id number] [place] [address] 41086- 6191 Jul, Diabetes type 2, controlled E11.9 [facility] [address] [id number] [place] [address] 80338- 1944 Jun, Anxiety F41.9 [facility] [id number] [place] [address] 31896- 7258 May, [place] [address] [address] [id number] [place] [address] 13829- 8197 May, [place] [address] [address] [id number] [place] [address] 09936- 1749 May, Nausea R11.0 ; Other chronic pain G89.29 and Pain in right knee M25.561 [place] [address] [address] [id number] [place] [address] 82903- 1502 May, [place] [address] [address] [id number] [place] [address] 27992- 4854 Apr, Tear of medial meniscus of right knee, current, unspecified tear type, subsequent encounter S83.241D and Tear of lateral meniscus of right knee, current, unspecified tear type, subsequent encounter S83.281D [place] [address] [id number] [place] [address] 83499- 0310 Apr, Anxiety F41.9 and Mood disorder F39 [place] [address] [id number] [place] [address] 91752- 5618 Apr, Anxiety F41.9 [place] [address] [id number] [place] [address] 17985- 3241 Apr, [place] [address] [address] [id number] [place] [address] 21399- 6268 17 Mar, 2016 [place] [address] [address] [id number] [place] [address] 97035- 1183 Mar, Lupus erythematosus L93.0 and Diabetes type 2, controlled E11.9 [place] [address] [id number] [place] [address] 33216- 9631 Mar, Mood disorder F39 [place] [address] [address] [id number] [place] [address] 23063- 6904 03 Mar, 2016 Tear of lateral meniscus of right knee, current, unspecified tear type, initial encounter S83.281A and Osteoarthritis of right knee, unspecified osteoarthritis type M17.9 [place] [address] [address]- 2434 Mar, [facility] [address] [id number] [place] [address] 83295- 9596 Feb, Mood disorder F39 [facility] [address] [id number] [place] [address] 50525- 6801 Feb, Rash R21 [facility] [address] [id number] [place] [address] 69625- 2858 Feb, [facility] [id number] [place] [address] 49523- 3626 Jan, Other chronic pain G89.29 and Muscle spasm M62.838 [facility] [id number] [place] [address] 17600- 7912 Jan, Mood disorder F39 [facility] [id number] [place] [address] 48465- 4150 Jan, Pain in right knee M25.561 ; Other chronic pain G89.29 and Muscle spasm M62.838 [facility] [address] [place] [address] 90982- 0025 Dec, [facility] [id number] [place] [address] 67083- 3965 Dec, [facility] [id number] [place] [address] 97222- 9019 Nov, [facility] [id number] [place] [address] 33972- 9524 Nov, Mood disorder F39 [facility] [id number] [place] [address] 33143- 6590 Nov, Diabetes type 2, controlled E11.9 ; Bronchitis J40 ; Edema, unspecified type R60.9 ; Weight gain R63.5 and Right knee pain, unspecified chronicity M25.561 [facility] [id number] [place] [address] 58470- 0253 Oct, Mood disorder F39 [facility] [address] [id number] [place] [address] 96131- 0960 Oct, Lupus erythematosus L93.0 and Bilateral edema of lower extremity R60.0 [facility] [id number] [place] [address] 44235- 5672 16 Oct, 2015 Mood disorder F39 and Anxiety F41.9 [facility] [id number] [place] [address] 82591- 5638 September, Mood disorder F39 ; Anxiety F41.9 and Anger reaction R45.4 [place] [address] [place] [address] [id number] [place] [address] 22514- 3622 September, Diabetes type 2, controlled E11.9 ; Edema, unspecified type R60.9 and Fatigue, unspecified type R53.83 [place] [address] [address] [id number] [place] [address] 17550- 9189 Aug, Mood disorder F39 and Generalized anxiety disorder F41.1 [facility] [address] [id number] [place] [address] 01383- 0958 Aug, Diabetes type 2, controlled E11.9 ; Sinusitis J32.9 and Mood disorder F39 [facility] [id number] [place] [address] 36425- 7671 15 Aug, 2015 Lupus erythematosus L93.0 [facility] [id number] [place] [address] 78554- 0554 14 Aug, 2015 [facility] [id number] [place] [address] 75178- 8153 Aug, [facility] [address] [place] [id number] [place] [address] 06774- 0371 Jul, Diabetes type 2, controlled E11.9 [facility] [address] [id number] [place] [address] 33815- 0630 Jul, Mood disorder F39 and Depression F32.9 [facility] [address] [place] [address]- 6045 Jul, Lupus erythematosus L93.0 and Diabetes type 2, controlled E11.9 [facility] [id number] [place] [address] 90174- 7956 Jul, Mood disorder F39 and Anxiety F41.9 [facility] [id number] [place] [address] 27230 2546 Jul, [facility] [id number] [place] [address] 34856 2548 Jul, [facility] [address] [id number] [place] [address] 46121- 9906 Jun, Mood disorder F39 and Anxiety F41.9 [facility] [id number] [place] [address] 76526- 5271 Jun, Mood disorder F39 [facility] [id number] [place] [address] 89691- 8616 Jun, [facility] [address] [place] [address] 34702- 6877 Jun, [facility] [address] [place] [address] 20024- 9363 Jun, Mood disorder F39 [facility] [address] [address]- 4586 Jun, [facility] [address] [address]- 5992 May, [facility] [address] [address]- 9016 May, [facility] [id number] [place] [address] 72630- 6966 May, [facility] [address] [address]- 8042 May, [facility] [id number] [place] [address] 05410- 9030 May, Anxiety F41.9 ; Dermatomyositis M33.90 and Diabetes type 2, controlled E11.9 [facility] IN [facility] [id number] [place] [address] 74246 -9837 May, Sinusitis J32.9 and Cough R05 [facility] [id number] [place] [address] 70631- 6133 May, Mood disorder F39 [facility] [id number] [place] [address] 19621- 6146 May, Adjustment disorder with mixed anxiety and depressed mood F43.23 [facility] [address] [id number] [place] [address] 99747- 6924 Apr, [facility] [id number] [place] [address] 95438- 9683 Apr, [facility] [id number] [place] [address] 55498- 7725 Apr, Generalized anxiety disorder F41.1 and Mood disorder F39 [facility] [id number] [place] [address] 39293- 6468 Mar, [facility] [id number] [place] [address] 90127- 3610 Mar, [facility] [id number] [place] [address] 90433- 0071 Mar, [facility] [id number] [place] [address] 48478- 5220 Mar, Mood disorder F39 [facility] [id number] [place] [address] 38211- 2131 Feb, [facility] [id number] [place] [address] 59307- 1892 Feb, Diabetes E11.9 and Bronchitis J40 [facility] [id number] [place] [address] 79188- 4854 Feb, [facility] [address] [place] [address] 58399- 3135 Feb, [facility] [address] [id number] [place] [address] 95360- 5538 Feb, Major depression, recurrent, full remission F33.42 and KELLY ( generalized anxiety disorder) F41.1 [place] [address] [id number] [place] [address] 91592- 8234 Feb, [facility] [address] [place] [id number] [place] [address] 59324- 4788 Feb, Single major depressive episode, in partial or unspecified remission F32.5 [place] [id number] [place] [address] 73703- 8216 Jan, Fatigue 780.79 [place] [id number] [place] [address] 59005- 7093 Jan, [place] [address] [address] [id number] [place] [address] 53464- 3731 Jan, Diabetes with other specified manifestations, type II or unspecified type, not stated as uncontrolled 250.80 [place] [address] [place] [id number] [place] [address] 55569- 7745 Jan, [place] [address] [place] [address] [id number] [place] [address] 74810- 8733 Dec, Hot flashes 627.2 ; Memory loss 780.93 and Joint pain 719.40 [place] [address] [place] [address] [id number] [place] [address] 42568- 3379 Dec, Major depression, recurrent 296.30 ; Generalized anxiety disorder 300.02 ; Adjustment disorder with depressed mood 309.0 and No condition on [place] II V71.09 [facility] [address] [id number] [place] [address] 92853- 4518 Dec, [place] [address] [place] [address] [id number] [place] [address] 31925- 5317 Nov, Cognitive and neurobehavioral dysfunction 294.9 ; Major depressive disorder, recurrent episode, moderate degree 296.32 and Anxiety state , unspecified 300.00 [place] [address] [id number] [place] [address] 07936- 6435 Nov, [place] [address] [place] [address] [id number] [place] [address] 15251- 0443 Nov, Bronchitis 490 and Diabetes with other specified manifestations, type II or unspecified type, not stated as uncontrolled 250.80 [place] [address] [place] [address] [id number] [place] [address] 95524- 7963 Nov, Major depressive disorder, recurrent episode, moderate 296.32 and Anxiety disorder, unspecified 300.00 [place] [address] [place] [address] [id number] [place] [address] 19482- 1488 Nov, Anxiety, generalized 300.02 ; Intermittent explosive disorder 312.34 ; No condition on [place] II V71.09 and No condition on axis III V71.09 [place] [address] [id number] [place] [address] 42111- 7292 Oct, Diabetes with other specified manifestations, type II or unspecified type, not stated as uncontrolled 250.80 ; Urinary tract infection, site not specified 599.0 and Bronchitis 490 [place] [address] [place] [address] 05631- 2945 Oct, Intermittent explosive disorder 312.34 ; Bipolar 1 disorder , depressed, moderate 296.52 ; Major depression, chronic 296.20 ; No condition on [place] II V71.09 and No condition on axis III V71.09 [place] [address] [place] [address] 87004- 1810 Oct, Major depressive disorder, recurrent episode, moderate 296.32 ; Anxiety state 300.00 ; Cognitive decline 294.9 and No condition on [place] II V71.09 [place] [address] [address]- 1483 Oct, [place] [address] [place] [address] [id number] [place] [address] 13269- 0676 Oct, Major depressive disorder, recurrent episode, moderate 296.32 ; Anxiety disorder, unspecified 300.00 and Persistent disorder of initiating or maintaining sleep 307.42 [facility] [address] [place] [id number] [place] [address] 81553- 4086 September, Diabetes with other specified manifestations, type II or unspecified type, not stated as uncontrolled 250.80 ; Memory loss 780.93 and Cognitive complaints 799.59 [facility] [address] [id number] [place] [address] 07691- 7826 September, No condition on [place] II V71.09 ; Major depression, recurrent 296.30 and Persistent mood [affective] disorder, unspecified 296.90 [facility] [address] [id number] [place] [address] 85692- 4718 Aug, [facility] [address] [id number] [place] [address] 46612- 0476 Aug, [facility] [address] [id number] [place] [address] 04649- 6226 Aug, [facility] [address] [id number] [place] [address] 84680- 4266 Jul, [facility] [id number] [place] [address] 75107- 2436 Jul, [facility] [address] [place] [address] 83566- 6936 Jul, [facility] [id number] [place] [address] 09584- 2546 Jul, [facility] [address] [place] [address] 84301- 2546 Jul, [facility] [id number] [place] [address] 39764- 4656 Jun, [facility] [address] [address]- 2546 Jun, [facility] [address] [place] [id number] [place] [address]- 7141 Jun, 2014 [facility] [place] [facility] [address] [id number] [place] [address]- 6302 Jun, 2014 [facility] [place] [facility] [address] [id number] [place] [address]- 4896 Jun, 2014 [facility] [place] [facility] [address] [facility] [id number] [place] [address]- 1502 Jun, 2014 [facility] [place] [facility] [address] [id number] [place] [address]- 0153 Jun, 2014 [facility] [place] [facility] [address] [id number] [place] [address]- 0395 Jun, 2014 [facility] [place] [facility] [address] [facility] [id number] [place] [address]- 3053 Jun, 2014 [facility] [place] [facility] [address] [facility] [id number] [place] [address]- 0892 Jun, 2014 [facility] [place] [facility] [address] [facility] [id number] [place] [address]- 2644 Jun, 2014 [facility] [place] [facility] [address] [facility] [id number] [place] [address]- 4387 Jun, 2014 [facility] [place] [facility] [address] [facility] [id number] [place] [address]- 5959 Jun, [facility] [place] [facility] [address] [facility] [id number] [address]- 8012 May, [facility] [place] [facility] [address] [facility] [id number] [place] [address]- 8257 May, [facility] [place] [facility] [address] [facility] [id number] [place] [address] Apr, [facility] [place] [facility] [address] [facility] [id number] [address] Apr, [facility] [place] [facility] [address] [facility] [id number] [address] Apr, [facility] [place] [facility] [address] [id number] [place] [address] Apr, [facility] [place] [facility] [address] [id number] [place] [address] Apr, [facility] [place] [facility] [address] [id number] [place] [address] Apr, [facility] [place] [facility] [address] [id number] [place] [address] Apr, [facility] [place] [facility] [address] [id number] [place] [address] Apr, [facility] [place] [facility] [address] [id number] [place] [address] Apr, [facility] [place] [facility] [address] [id number] [place] [address] Apr, [facility] [place] [facility] [address] [id number] [place] [address] Apr, [facility] [place] [facility] [address] [id number] [place] [address] Apr, [facility] [place] [facility] [address] [id number] [place] [address] Apr, [facility] [place] [facility] [address] [id number] [place] [address] Apr, [facility] [place] [facility] [address] [id number] [place] [address] Apr, [facility] [place] [facility] [address] [id number] [place] [address] Apr, [facility] [place] [facility] [address] [id number] [place] [address] Apr, [facility] [place] [facility] [address] [id number] [place] [address] Apr, [facility] [place] [facility] [address] [id number] [place] [address] Apr, [facility] [place] [facility] [address] [id number] [place] [address] Apr, [facility] [place] [facility] [address] [id number] [place] [address] Mar, [facility] [place] [facility] [address] [id number] [place] [address] 140[address] Mar, [facility] [place] [facility] [address] [id number] [place] [address]77 Mar, [facility] [place] [facility] [address] [id number] [place] [address] 3328 Mar, [facility] [place] [facility] [address] [id number] [place] [address] 7154 Mar, [facility] [place] [facility] [address] [id number] [place] [address] 5528 Mar, [facility] [place] [facility] [address] [id number] [place] [address] 3[address] Mar, [facility] [place] [facility] [address] [id number] [place] [address] 3357 Mar, [facility] [place] [facility] [address] [id number] [place] [address] 6[address] Mar, [facility] [place] [facility] [address] [id number] [place] [address] 2562 Mar, [facility] [place] [facility] [address] [id number] [place] [address] 6277 Mar, [facility] [place] [facility] [address] [id number] [place] [address] 1822 Mar, [facility] [place] [facility] [address] [id number] [place] [address]- 0166 Mar, [facility] [place] [facility] [address] [id number] [place] [address] 4935 Feb, [facility] [place] [facility] [address] [id number] [place] [address] 1408 Feb, [facility] [place] [facility] [address] [id number] [place] [address]- 8147 Feb, [facility] [place] [facility] [address] [id number] [place] [address] 9439 Feb, [facility] [place] [facility] [address] [id number] [place] [address]- 6518 Feb, [facility] [place] [facility] [address] [id number] [place] [address] 5747 Feb, [facility] [place] [facility] [address] [id number] [place] [address]- 0633 Feb, [facility] [place] [facility] [address] [id number] [place] [address]- 1661 Feb, [facility] [place] [facility] [address] [id number] [place] [address]- 6459 Feb, [facility] [place] [facility] [address] [id number] [place] [address]- 6757 Feb, [facility] [place] [facility] [address] [id number] [address] 7[address] Feb, [facility] [place] [facility] [address] [id number] [place] [address] 5273 Feb, [facility] [place] [facility] [address] [id number] [place] [address] 2509 Feb, [facility] [place] [facility] [address] [id number] [place] [address]- 0052 Feb, [facility] [place] [facility] [address] [id number] [place] [address] 4616 Feb, [facility] [place] [facility] [address] [id number] [place] [address] 3297 10 Jan, 2014 [facility] [place] [facility] [address] [id number] [place] [address]- 5570 08 Jan, 2013 [facility] [place] [facility] [address] [id number] [place] [address]- 3373 08 Jan, 2013 [facility] [place] [facility] [address] [id number] [place] [address]- 0750 Jan, [facility] [place] [facility] [address] [id number] [place] [address]- 7698 Jan, [facility] [place] [facility] [address] [id number] [place] [address]- 9052 Dec, [facility] [place] [facility] [address] [id number] [place] [address]- 5628 Dec, [facility] [place] [facility] [address] [id number] [place] [address]- 2275 Dec, [facility] [place] [facility] [address] [id number] [place] [address] 8550 Dec, [facility] [place] [facility] [address] [id number] [place] [address]- 6086 Nov, [facility] [place] [facility] [address] [id number] [place] [address]- 1272 Nov, [facility] [place] [facility] [address] [id number] [place] [address]- 0813 Nov, [facility] [place] [facility] [address] [id number] [place] [address]- 3754 Nov, [facility] [place] [facility] [address] [id number] [place] [address]- 8168 Nov, [facility] [place] [facility] [address] [id number] [place] [address]- 4569 Nov, [facility] [place] [facility] [address] [id number] [place] [address]- 4017 Nov, [facility] [place] [facility] [address] [id number] [place] [address]- 3109 Nov, [facility] [place] [facility] [address] [id number] [place] [address]- 7213 Nov, [facility] [place] [facility] [address] [id number] [place] [address]- 7372 Nov, [facility] [place] [facility] [address] [id number] [place] [address] 8840 Oct, [facility] [place] [facility] [address] [id number] [place] [address]- 7432 Oct, [facility] [place] [facility] [address] [id number] [place] [address]- 0286 September, [facility] [place] [facility] [address] [id number] [place] [address]- 3565 September, [facility] [place] [facility] [address] [id number] [place] [address] 3086 September, [facility] [place] [facility] [address] [id number] [place] [address]- 5451 September, [facility] [place] [facility] [address] [id number] [place] [address]- 3656 Aug, [facility] [place] [facility] [address] [id number] [place] [address]- 9403 Aug, [facility] [place] [facility] [address] [id number] [place] [address]- 6660 Aug, [facility] [place] [facility] [address] [id number] [place] [address]- 9776 Jul, [facility] [place] [facility] [address] [id number] [place] [address]- 7782 24 Jul, 2013 [facility] [place] [facility] [address] [id number] [place] [address]- 1875 Jul, [facility] [place] [facility] [address] [id number] [place] [address]- 6245 Jul, [facility] [place] [facility] [address] [id number] [place] [address]- 4138 May, [facility] [place] [facility] [address] [id number] [place] [address]- 6634 May, [facility] [place] [facility] [address] [id number] [place] [address]- 6334 May, [facility] [place] [facility] [address] [id number] [place] [address]- 8848 Mar, [facility] [place] [facility] [address] [id number] [place] [address]- 4060 Mar, [facility] [place] [facility] [address] [id number] [place] [address]- 0619 Mar, [facility] [place] [facility] [address] [id number] [place] [address]- 0456 Mar, [facility] [place] [facility] [address] [id number] [place] [address]- 3770 16 Feb, 2013 [facility] [place] [facility] [address] [id number] [place] [address]- 5225 16 Feb, 2013 [facility] [place] [facility] [address] [id number] [place] [address]- 1326 Feb, [facility] [place] [facility] [address] [id number] [place] [address]- 8484 16 Jan, 2013 [facility] [place] [facility] [address] [id number] [place] [address]- 2821 12 Jan, 2013 [facility] [place] [facility] [address] [id number] [address] 6328 Jan, [facility] [place] [facility] [address] [id number] [place] [address]- 7612 Dec, [facility] [place] [facility] [address] [id number] [place] [address]- 8920 Dec, [facility] [place] [facility] [address] [id number] [place] [address] 2542 Dec, [facility] [place] [facility] [address] [id number] [place] [address]- 7774 Dec, [facility] [address] [id number] [place] [address]- 4235 Nov, [facility] [address] [id number] [place] [address]- 3206 Oct, [facility] [address] [id number] [place] [address]- 6823 Oct, [facility] [address] [id number] [place] [address]- 6994 September, [facility] [address] [id number] [place] [address]- 0058 September, [facility] [address] [id number] [place] [address]- 5728 September, [facility] [address] [id number] [place] [address]- 2983 Aug, [facility] [address] [id number] [place] [address]- 6890 Aug, [facility] [address] [id number] [place] [address]- 0528 Aug, [facility] [address] [id number] [place] [address]- 7092 Aug, [facility] [address] [id number] [place] [address]- 2809 26 Jul, 2012 [facility] [address] [id number] [place] [address]- 7762 25 Jul, 2012 [facility] [address] [id number] [place] [address]- 8224 21 Jul, 2012 [facility] [address] [id number] [place] [address]- 9585 15 Jul, 2012 [facility] [address] [id number] [place] [address]- 1344 14 Jul, 2012 [facility] [address] [id number] [place] [address]- 2612 13 Jul, 2012 [facility] [place] [facility] [address] [id number] [place] [address]- 9255 Jul, [facility] [place] [facility] [address] [id number] [place] [address]- 6740 06 Jun, 2012 [facility] [place] [facility] [address] [id number] [place] [address]- 3773 Jun, [facility] [place] [facility] [address] [id number] [place] [address]- 6376 Jun, [facility] [place] [facility] [address] [id number] [place] [address]- 8181 Jun, [facility] [place] [facility] [address] [id number] [place] [address]- 3771 May, [facility] [place] [facility] [address] [id number] [place] [address]- 0690 May, [facility] [place] [facility] [address] [id number] [place] [address]- 5882 May, [facility] [place] [facility] [address] [id number] [place] [address]- 2818 May, [facility] [place] [facility] [address] [id number] [place] [address]- 9627 May, [facility] [place] [facility] [address] [id number] [address]- 7956 Apr, [facility] [place] [facility] [address] [id number] [place] [address]- 3198 Apr, [facility] [place] [facility] [address] [id number] [place] [address]- 7343 Mar, [facility] [place] [facility] [address] [id number] [place] [address]- 8277 Mar, [facility] [place] [facility] [address] [id number] [place] [address]- 9908 Mar, [facility] [place] [facility] [address] [id number] [place] [address]- 3099 Mar, [facility] [place] [facility] [address] [id number] [place] [address]- 2935 Mar, [facility] [place] [facility] [address] [id number] [place] [address]- 5709 Mar, [facility] [place] [facility] [address] [id number] [place] [address]- 3320 Mar, [facility] [place] [facility] [address] [id number] [place] [address]- 4812 Mar, [facility] [place] [facility] [address] [id number] [place] [address]- 5876 Mar, [facility] [place] [facility] [address] [id number] [place] [address]- 9037 Mar, [facility] [place] [facility] [address] [id number] [place] [address]- 7401 Feb, [facility] [place] [facility] [address] [id number] [place] [address]- 5138 Feb, [facility] [place] [facility] [address] [facility] [id number] [place] [address]- 2944 Feb, [facility] [place] [facility] [address] [id number] [place] [address]- 1521 Feb, [facility] [place] [facility] [address] [id number] [address]- 1973 Feb, [facility] [place] [facility] [address] [id number] [place] [address]- 6194 Feb, [facility] [place] [facility] [address] [facility] [id number] [place] [address]- 7596 Feb, [facility] [place] [facility] [address] [facility] [id number] [place] [address]- 4005 Jan, [facility] [place] [facility] [address] [id number] [place] [address]- 7330 Jan, [facility] [place] [facility] [address] [id number] [place] [address]- 6479 Dec, [facility] [place] [facility] [address] [id number] [place] [address]- 2786 Dec, [facility] [place] [facility] [address] [id number] [place] [address]- 2196 Dec, [facility] [place] [facility] [address] [id number] [place] [address]- 2156 Dec, [facility] [place] [facility] [address] [id number] [place] [address]- 7210 Dec, [facility] [place] [facility] [address] [id number] [place] [address]- 7665 Dec, [facility] [place] [facility] [address] [id number] [place] [address]- 2626 Nov, [facility] [place] [facility] [address] [id number] [place] [address]- 9165 Nov, [facility] [place] [facility] [address] [id number] [place] [address]- 6432 Nov, [facility] [place] [facility] [address] [id number] [place] [address]- 0518 Nov, [facility] [place] [facility] [address] [id number] [place] [address]- 3309 September, [facility] [place] [facility] [address] [id number] [place] [address]- 7112 September, [facility] [place] [facility] [address] [id number] [place] [address]- 7962 September, [facility] [place] [facility] [address] [id number] [place] [address]- 2103 Jul, [facility] [place] [facility] [address] [id number] [place] [address]- 1702 29 Jun, 2011 [facility] [address] [id number] [address]- 7318 20 Jun, 2011 [facility] [address]00565[place] [address]- 3786 13 Jun, 2011 [facility] [id number] [address]- 6791 Apr, [facility] [id number] [address]- 4655 Mar, [facility] [id number] [address]- 4369 Mar, [facility] [id number] [address]- 4194 Feb, [facility] [address]00565[address] [address]- 5029 Feb, [facility] [id number] [address]- 0246 Feb, [facility] [address]65[place] [address]- 1607 Jul, [facility] [address] [address]- 2067 Feb, IMMUNIZATIONS No Known Immunizations SOCIAL HISTORY Never Assessed REASON FOR VISIT Controlled Med Refill 12/29/16 PLAN OF CARE VITAL SIGNS MEDICATIONS Medication Instructions Dosage Frequency Start Date End Date Duration Status Xanax 2 MG Orally Twice a day 1 tablet 12h 09 Apr, 2016 28 days Active RESULTS No Results PROCEDURES No [...]
--- OUTSIDE RECORDS SUMMARY | 2018-02-02 23:56 | XMS REPORT ---
Author Author MACY TAMAYO [facility] Address [address] [place] [address] Care Team Providers Care Retail Director Name Role Phone MACY TAMAYO Unavailable PROBLEMS Type Condition ICD9-CM Code [id number] Code Onset Dates Condition Status SNOMED Code Problem Menopause Z78.0 Active 579472256 Problem Lupus erythematosus L93.0 Active 694178572 Problem Other chronic pain G89.29 Active 19684079 Problem Anxiety F41.9 Active 95219578 Problem Diabetes type 2, controlled E11.9 Active 36776961 Problem Mood disorder F39 Active 82402407 Problem Osteoarthritis of right knee, unspecified osteoarthritis type M17.9 Active 359635203 Problem Allergic rhinitis due to pollen J30.1 Active 05524426 ALLERGIES Unknown Allergies SOCIAL HISTORY No smoking Hx information available PLAN OF CARE VITAL SIGNS MEDICATIONS Unknown Medications RESULTS No Results PROCEDURES No Known procedures IMMUNIZATIONS No Known Immunizations
--- OUTSIDE RECORDS SUMMARY | 2018-02-02 23:56 | XMS REPORT ---
Author MACY Wadsworth [facility] e[employer] Address Unknown Phone Unavailable Care Team Providers Care Drupal Developer Name Role Phone MACY TAMAYO CP Unavailable Allergies, Adverse Reactions, Alerts Substance Reaction Event Type Fluarix Quadrivalent vomiting Drug Allergy Zoloft makes very angry Drug Allergy Fluarix vomiting Drug Allergy Aspirin rash Drug Allergy Latex, Natural Rubber rash Non Drug Allergy Problems Problem Type Condition Code Onset Dates Condition Status Assessment Diabetes E11.9 Active Problem Allergic rhinitis, cause unspecified 477.9 Active Problem Diabetes with other specified manifestations, type II or unspecified type, not stated as uncontrolled 250.80 Active Assessment Bronchitis J40 Active Problem Other specified menopausal and postmenopausal disorder 627.8 Active Problem Depressive disorder, not elsewhere classified 311 Active Problem Diabetes E11.9 Active Problem Unspecified episodic mood disorder 296.90 Active Problem Mastodynia 611.71 Active Problem Screening for malignant neoplasm of the cervix V76.2 Active Problem Edema 782.3 Active Medications Medication Code System Code Instructions Start Date End Date Status Dosage Potassium Chloride Marie ER [facility] [address]-40 10 MEQ TAKE TWO TABLETS BY MOUTH ONCE DAILY PredniSONE [facility] [address]-81 15 mg TAKE ONE TABLET BY MOUTH DAILY WITH FOOD OR MILK Diclofenac Sodium [facility] [address]-57 50 MG Orally Twice a day October 08, 2014 1 tablet Omeprazole [facility] 17955073956 20 MG Orally Once a day 1 capsule Diflucan [facility] [address]-39 150 MG Orally Mar 23, 2015 1 tablet Ativan [facility] [address]-84 1 MG Twice a day PRN for anxiety July 30, 2014 1 tablet by Oral route 2 times per day PRN anxiety Loratadine [facility] [address]-73 10 mg Mar 19, 2014 take 1 tablet (10 mg) by oral route once daily Methotrexate [facility] [address]-89 2.5 MG Orally 1 time per week 6 Victoza [facility] [address]-52 0.6 mg/0.1 mL (18 mg/3 mL) Jan 13, 2012 inject 0.3 milliliter (1.8 mg) by subcutaneous route once daily Folic Acid [facility] 75308880781 1 MG TAKE ONE TABLET BY MOUTH DAILY ( DO NOT TAKE ON DAYS YOU TAKE METHOTREXATE) Doxycycline Hyclate [facility] [address]-51 100 MG Orally every 12 hrs Mar 23, 2015 Apr 02, 2015 1 capsule Guaifenesin [facility] [address]-58 400 MG Orally 2 times a day Mar 23, 2015 Apr 22, 2015 1 tablet as needed ProAir HFA [facility] [address]-99 90 mcg/actuation Mar 19, 2014 2 puffs by Inhalation route 4 times per day Lisinopril-Hydrochlorothiazide [facility] 03227067995 20-25 MG Orally Once a day 1 tablet Procedures Procedure Coding System Code Date Office Visit, Est Pt., Level 3 CPT-4 03398 Mar 23, 2015 GLYCATED HEMOGLOBIN TEST CPT-4 89670 Mar 23, 2015 Vital Signs Date/Time: Mar 23, 2015 Temperature 98.1 F Weight 240 lbs Height 62 in BMI 43.89 Index Blood Pressure Diastolic 72 mmHg Blood Pressure Systolic 130 mmHg Cardiac Monitoring Heart Rate 82 bpm Results Name Result Date Reference Range Unit Abnormality Flag A1C (IN HOUSE) Summary Purpose eClinicalWorks Submission
--- OUTSIDE RECORDS SUMMARY | 2018-02-02 23:56 | XMS REPORT ---
Author MACY Wadsworth Organization [employer] Address Unknown Phone Unavailable Care Team Providers Care Lactation Specialist Name Role Phone MACY TAMAYO CP Unavailable Allergies No Known Allergies Problems Problem Type Condition Code Onset Dates Condition Status Problem Diabetes type 2, controlled E11.9 Active Problem Allergic rhinitis due to pollen J30.1 Active Problem Lupus erythematosus L93.0 Active Problem Mood disorder F39 Active Problem Menopause Z78.0 Active Medications Medication Code System Code Instructions Start Date End Date Status Dosage Folic Acid [facility] 87312316858 1 MG TAKE ONE TABLET BY MOUTH DAILY ( DO NOT TAKE ON DAYS YOU TAKE METHOTREXATE) Omeprazole [facility] 15217764462 20 MG Orally Once a day 1 capsule Results No Known Results Summary Purpose eClinicalWorks Submission
--- OUTSIDE RECORDS SUMMARY | 2018-02-02 23:56 | XMS REPORT ---
Author Author MACY TAMAYO [facility] Address [address] [place] [address] Care Team Providers Care Restrike Hammer Operator Name Role Phone MACY TAMAYO Unavailable PROBLEMS Type Condition ICD9-CM Code [id number] Code Onset Dates Condition Status SNOMED Code Assessment Other chronic pain G89.29 Jan, Active 55114341 Assessment Muscle spasm M62.838 Jan, Active 89361298 Problem Lupus erythematosus L93.0 Active 143615564 Problem Diabetes type 2, controlled E11.9 Active 46128526 Problem Menopause Z78.0 Active 746829296 Assessment Pain in right knee M25.561 Jan, Active 92074634 Problem Allergic rhinitis due to pollen J30.1 Active 15632809 Problem Mood disorder F39 Active 73300534 ALLERGIES Substance Reaction Event Type Date Status Fluarix Quadrivalent vomiting Drug Allergy Jan, Active Zoloft makes very angry Drug Allergy Jan, Active Fluarix vomiting Drug Allergy Jan, Active Aspirin rash Drug Allergy Jan, Active Latex, Natural Rubber rash Non Drug Allergy Jan, Active SOCIAL HISTORY No smoking Hx information available PLAN OF CARE VITAL SIGNS Height 62 in 2016-01-29 Weight 245.3 lbs 2016-01-29 Heart Rate 88 bpm 2016-01-29 Respiratory Rate 20 2016-01-29 BMI 44.86 kg/m2 2016-01-29 Blood pressure systolic 138 mmHg 2016-01-29 Blood pressure diastolic 84 mmHg 2016-01-29 MEDICATIONS Medication Instructions Dosage Frequency Start Date End Date Duration Status Glucocard Expression Monitor w/Device as directed Nov, Active Nyamyc 180875 UNIT/GM APPLY TO AFFECTED AREA 12h 5 Active Victoza 0.6 mg/0.1 mL (18 mg/3 mL) inject 0.3 milliliter (1.8 mg) by subcutaneous route once daily Dec, Active Loratadine 10 MG TAKE ONE TABLET BY MOUTH DAILY 30 Active Tessalon Perles 200 mg Orally Three times a day prn cough 1 capsule as needed 07 Lul, 2016 Active Actos 30 MG Orally Once a day 1 tablet 24h Jul, 30 Active Methotrexate 2.5 MG Orally 1 time per week 6 28 Active Proventil HFA 108 (90 Base) MCG/ACT 2 puffs as needed 6h Active BD U/F Mini Pen Needle 31G X 5 MM SQ Once a day as directed 24h Jul, Active Diclofenac Sodium 50 MG Orally Twice a day 1 tablet 12h 30 Active Folic Acid 1 MG 1 tablet 30 Active PredniSONE 20 MG Orally Once a day 1 tablet 24h May, 30 Active Spironolactone 25 MG Orally Once a day 1 tablet 24h Active Lisinopril-Hydrochlorothiazide 20-25 MG Orally Once a day 1 tablet 24h 30 Active Magnesium Oxide 400 MG Orally Once a day 1 tablet 24h Jan, Jul, 30 day(s) Active Glucocard Expression Test - as directed 24h Nov, Active Omeprazole 20 mg Orally Once a day 1 capsule 24h 30 Active Lasix 20 mg Orally Once a day 1 tablet 24h Nov, 30 day(s) Active Potassium Chloride Marie ER 20 MEQ Orally Once a day 1 tablet with food 24h Active RESULTS No Results PROCEDURES Procedure Date Ordered Related Diagnosis Body Site Office Visit, Est Pt., Level 3 Jan 29, 2016 IMMUNIZATIONS No Known Immunizations
--- OUTSIDE RECORDS SUMMARY | 2018-02-02 23:56 | XMS REPORT ---
Author MACY Wadsworth Organization [employer] Address Unknown Phone Unavailable Care Team Providers Care Ore Grader Name Role Phone MACY TAMAYO CP Unavailable [...]
--- OUTSIDE RECORDS SUMMARY | 2018-02-02 23:57 | XMS REPORT ---
Author Author ROSANA CRUMP [facility] [employer] Address Unknown Phone Unavailable Care Team Providers Care Easter Bunny Name Role Phone ROSANA CRUMP CP Unavailable [...] not stated as uncontrolled 250.80 Active Assessment Single major depressive episode, in partial or unspecified remission F32.5 Active Problem Depressive disorder, not elsewhere classified 311 Active Problem Screening for malignant neoplasm of the cervix V76.2 Active Problem Other specified menopausal and postmenopausal disorder 627.8 Active Problem Mastodynia 611.71 Active Problem Allergic rhinitis, cause unspecified 477.9 Active Problem Edema 782.3 Active Problem Unspecified episodic mood disorder 296.90 Active Medications No Known Medications Procedures Procedure Coding System Code Date Psychotherapy, patient &/family, 45 minutes, established patient CPT-4 77003 Mar 03, 2015 Results No Known Results Summary Purpose [employer] Submission
--- OUTSIDE RECORDS SUMMARY | 2018-02-02 23:57 | XMS REPORT ---
Author Author MACY TAMAYO Organization [facility] Address [address] [place] [address] Care Team Providers Care Projection Camera Operator Name Role Phone MACY TAMAYO Unavailable PROBLEMS Type Condition ICD9-CM Code [id number] Code Onset Dates Condition Status SNOMED Code Problem Plantar warts B07.0 Active 36994644 Problem Lumbago with sciatica, left side M54.42 Active 130234997 Problem Plantar wart of both feet B07.0 Active [id number] Problem Morbid (severe) obesity due to excess calories E66.01 Active 653816522 Problem Dermatomyositis M33.90 Active 563548823 Problem Tachycardia with heart rate 121-140 beats per minute R00.0 Active 5964659 Problem Controlled type 2 diabetes mellitus without complication, without long -term current use of insulin E11.9 Active 926648509 Problem Enlarged thyroid gland E04.9 Active 1710116 Problem Body mass index (BMI) of 45.0-49.9 in adult Z68.42 Active 958429326 Problem Menopause Z78.0 Active 754171071 Problem Allergic rhinitis due to pollen J30.1 Active 88806136 Problem Osteoarthritis of right knee, unspecified osteoarthritis type M17.9 Active 783425556 Problem Anxiety F41.9 Active 63390299 Problem Mood disorder F39 Active 02093359 Problem Other chronic pain G89.29 Active 78437303 Problem Diabetes type 2, controlled E11.9 Active 25385927 Problem Arthritis M19.90 Active 8229837 ALLERGIES Substance Reaction Event Type Date Status Fluarix Quadrivalent vomiting Drug Allergy Mar, Active Zoloft makes very angry Drug Allergy Mar, Active Fluarix vomiting Drug Allergy Mar, Active Aspirin rash Drug Allergy Mar, Active Latex, Natural Rubber rash Non Drug Allergy Mar, Active ENCOUNTERS Encounter Location Date Diagnosis [facility] [address] [facility] [id number] [address] Oct, [facility] [id number] [place] [address] 17812- 5022 September, Other chronic pain G89.29 [facility] [id number] [place] [address] 57965- 6600 September, Other chronic pain G89.29 [facility] [id number] [place] [address] 11572- 9545 September, Other chronic pain G89.29 [facility] [id number] [place] [address] 57343- 2239 Aug, Mood disorder F39 [place] [address] 52439- 0199 Aug, Other chronic pain G89.29 ; Controlled type 2 diabetes mellitus without complication, without long-term current use of insulin E11.9 ; Low back pain M54.5 and Tinea corporis B35.4 [place] [id number] [place] [address] 54128- 6799 Aug, Mood disorder F39 and Anxiety F41.9 [place] [id number] [place] [address] 07468- 0206 Aug, Mood disorder F39 and Anxiety F41.9 [place] [id number] [place] [address] 40058- 2924 Jul, [facility] [id number] [place] [address] 60859 -5561 Jul, Scabies B86 and BMI 45.0-49.9, adult Z68.42 [place] [id number] [place] [address] 08291- 5031 Jul, [place] [id number] [place] [address] 86792- 0133 Jul, Mood disorder F39 and Anxiety F41.9 [place] [id number] [place] [address] 76954- 1919 Jul, [facility] [address] [place] [address] 57320 -9601 27 Jun, 2017 Bronchitis J40 ; Dark urine R82.99 and BMI 45.0-49.9, adult Z68.42 [place] [address] [place] [address] 91542- 5461 14 Jun, 2017 Acute pain of right shoulder M25.511 and Acute pain of right knee M25.561 [place] [id number] [place] [address] 44929- 3390 May, BMI 40.0-44.9, adult Z68.41 ; Controlled type 2 diabetes mellitus without complication, without long-term current use of insulin E11.9 ; Muscle cramping R25.2 ; Hot flashes R23.2 ; Mood disorder F39 ; Anxiety F41.9 and Morbid (severe) obesity due to excess calories E66.01 [place] [address] [place] [address] 63469- 3287 May, BMI 40.0-44.9, adult Z68.41 ; Controlled type 2 diabetes mellitus without complication, without long-term current use of insulin E11.9 ; Muscle cramping R25.2 and Hot flashes R23.2 [place] [address] [place] [address] 75833- 0360 May, Tachycardia with heart rate 121-140 beats per minute R00.0 ; Morbid (severe) obesity due to excess calories E66.01 ; Diabetes type 2, controlled E11.9 and Enlarged thyroid gland E04.9 [place] [address] [place] [address] 17743- 2762 May, Encounter for well woman exam with [...] Dysuria R30.0 and Screening breast examination Z12.31 [facility] [id number] [place] [address] 18485- 5748 Apr, Mood disorder F39 ; Other chronic pain G89.29 and Anxiety F41.9 [facility] [address] 67854- 7721 Apr, Lumbago with sciatica, left side M54.42 and Other chronic pain G89.29 [facility] [id number] [place] [address] 61522- 9397 Apr, Lupus erythematosus L93.0 [facility] [id number] [place] [address] 46882- 1712 Mar, Plantar wart of both feet B07.0 [facility] [address] 48284- 2274 Mar, Lupus erythematosus L93.0 and Sinus drainage J34.89 [facility] [id number] [place] [address] 04351- 6103 Mar, Mood disorder F39 ; Other chronic pain G89.29 and Anxiety F41.9 [facility] [id number] [place] [address] 79633- 5135 Mar, Mood disorder F39 ; Arthritis M19.90 and Plantar warts B07.0 [facility] [id number] [place] [address] 33492- 0045 Feb, Lupus erythematosus L93.0 [facility] [id number] [place] [address] 75453- 5174 Feb, Other chronic pain G89.29 [facility] [id number] [place] [address] 17873- 9758 Feb, Mood disorder F39 and Anxiety F41.9 [facility] [address] 18133- 9215 Jan, [facility] [address] [place] [address] 02900- 7244 Jan, Mood disorder F39 [facility] [address] [place] [address] 29127- 3811 Dec, Nail, ingrown L60.0 [facility] [address] [place] [address] 97589- 8432 Dec, Nail, ingrown L60.0 [facility] [address] [place] [address] 74948- 8624 Nov, Mood disorder F39 and Anxiety F41.9 [facility] [id number] [place] [address] 33202- 7693 Nov, Sinus drainage J34.89 ; Hot flashes R23.2 ; Anxiety F41.9 and Diabetes type 2, controlled E11.9 [facility] [address] [place] [address] 03578- 4213 Nov, Nail, ingrown L60.0 [facility] [id number] [place] [address] 29038- 8487 Oct, Anxiety F41.9 and Mood disorder F39 [facility] [address] [place] [address] 28300- 5723 Oct, Nail, ingrown L60.0 and Anxiety F41.9 [facility] [address] [place] [address] 30786- 8834 Oct, Lupus erythematosus L93.0 [facility] [id number] [place] [address] 81164- 4076 September, [facility] [id number] [place] [address] 74675- 2553 September, [facility] [address] [place] [address] 04285- 4196 08 May, 2017 Lupus erythematosus L93.0 [facility] [address] [address]- 9656 Aug, [facility] [id number] [place] [address] 74878 2546 Aug, Mood disorder F39 and Anxiety F41.9 [facility] [id number] [place] [address] 96878 2546 Aug, Lupus erythematosus L93.0 ; Diabetes type 2, controlled E11.9 and Localized edema R60.0 [facility] [id number] [place] [address] 26750 2546 Aug, [facility] [id number] [place] [address] 07856 2546 Jul, Anxiety F41.9 and Mood disorder F39 [facility] [id number] [place] [address] 05399- 4516 Jul, Diabetes type 2, controlled E11.9 [facility] [address] [place] [address] 98172- 6496 Jun, Anxiety F41.9 [facility] [id number] [place] [address] 00033 2546 May, [facility] [id number] [place] [address] 55662- 8636 May, [facility] [id number] [place] [address] 58657 2548 May, Nausea R11.0 ; Other chronic pain G89.29 and Pain in right knee M25.561 [facility] [id number] [place] [address] 09013 2546 May, [facility] [id number] [place] [address] 72930 2546 Apr, Tear of medial meniscus of right knee, current, unspecified tear type, subsequent encounter S83.241D and Tear of lateral meniscus of right knee, current, unspecified tear type, subsequent encounter S83.281D [facility] [id number] [place] [address] 67642- 3828 09 Apr, 2016 Anxiety F41.9 and Mood disorder F39 [facility] [id number] [place] [address] 14187- 7306 Apr, Anxiety F41.9 [facility] [address] 61614- 6624 Apr, [facility] [address] 78614- 8569 Mar, [facility] [address] 13152- 4927 Mar, Lupus erythematosus L93.0 and Diabetes type 2, controlled E11.9 [facility] [address] 67969- 3774 Mar, Mood disorder F39 [facility] [address] 15970- 9124 Mar, Tear of lateral meniscus of right knee, current, unspecified tear type, initial encounter S83.281A and Osteoarthritis of right knee, unspecified osteoarthritis type M17.9 [facility] [id number] [place] [address] 48826- 0459 Mar, [facility] [id number] [place] [address] 60884- 7081 Feb, Mood disorder F39 [facility] [id number] [place] [address] 83735- 0593 Feb, Rash R21 [facility] [address] 84576- 9182 Feb, [facility] [id number] [place] [address] 49391- 1346 Jan, Other chronic pain G89.29 and Muscle spasm M62.838 [facility] [address] [place] [address]- 1131 Jan, Mood disorder F39 [place] [id number] [place] [address] 37514- 5401 Jan, Pain in right knee M25.561 ; Other chronic pain G89.29 and Muscle spasm M62.838 [place] [id number] [place] [address] 28356- 9867 Dec, [place] [id number] [place] [address] 51822- 4711 Dec, [place] [id number] [place] [address] 30091- 6187 Nov, [place] [id number] [place] [address] 57218- 1320 Nov, Mood disorder F39 [place] [id number] [place] [address] 69533- 3242 Nov, Diabetes type 2, controlled E11.9 ; Bronchitis J40 ; Edema, unspecified type R60.9 ; Weight gain R63.5 and Right knee pain, unspecified chronicity M25.561 [place] [id number] [place] [address] 75755- 7906 Oct, Mood disorder F39 [place] [id number] [place] [address] 28625- 5395 Oct, Lupus erythematosus L93.0 and Bilateral edema of lower extremity R60.0 [place] [id number] [place] [address] 42932- 0596 Oct, Mood disorder F39 and Anxiety F41.9 [place] [id number] [place] [address] 36164- 1561 September, Mood disorder F39 ; Anxiety F41.9 and Anger reaction R45.4 [place] [id number] [place] [address] 51990- 3410 September, Diabetes type 2, controlled E11.9 ; Edema, unspecified type R60.9 and Fatigue, unspecified type R53.83 [facility] [id number] [place] [address] 82593- 7686 Aug, Mood disorder F39 and Generalized anxiety disorder F41.1 [facility] [id number] [place] [address] 13682- 1476 Aug, Diabetes type 2, controlled E11.9 ; Sinusitis J32.9 and Mood disorder F39 [facility] [id number] [place] [address] 39442- 1775 Aug, Lupus erythematosus L93.0 [facility] [id number] [place] [address] 40169- 5716 Aug, [facility] [id number] [place] [address] 16356- 3341 Aug, [facility] [id number] [place] [address] 86668- 8967 Jul, Diabetes type 2, controlled E11.9 [facility] [id number] [place] [address] 02663- 5966 Jul, Mood disorder F39 and Depression F32.9 [facility] [id number] [place] [address] 66625- 5999 Jul, Lupus erythematosus L93.0 and Diabetes type 2, controlled E11.9 [facility] [id number] [place] [address] 32646- 1223 Jul, Mood disorder F39 and Anxiety F41.9 [facility] [id number] [place] [address] 18905 2546 Jul, [facility] [id number] [place] [address] 38297 2546 Jul, [facility] [id number] [place] [address] 25280- 2082 Jun, Mood disorder F39 and Anxiety F41.9 [facility] [address] [address]- 8952 Jun, Mood disorder F39 [facility] [id number] [place] [address] 49032- 8171 Jun, [facility] [id number] [place] [address] 89914- 1659 Jun, [facility] [id number] [place] [address] 89801- 3168 Jun, Mood disorder F39 [facility] [address] [place] [address] 69276- 3167 Jun, [facility] [id number] [place] [address] 63705- 8968 May, [facility] [id number] [place] [address] 69331- 7373 May, [facility] [id number] [place] [address] 26277- 9939 May, [facility] [address] [place] [address] 71214- 4969 May, [facility] [id number] [place] [address] 09663- 1260 May, Anxiety F41.9 ; Dermatomyositis M33.90 and Diabetes type 2, controlled E11.9 [facility] [address] [place] [address] 56239 -3831 May, Sinusitis J32.9 and Cough R05 [facility] [address] [address]- 5457 May, Mood disorder F39 [facility] [address] [place] [address] 59133- 3339 May, Adjustment disorder with mixed anxiety and depressed mood F43.23 [facility] [address] [place] [address] 84252- 4369 Apr, [facility] [address] [place] [address] 10664- 1637 Apr, [facility] [id number] [place] [address] 44684- 9682 Apr, Generalized anxiety disorder F41.1 and Mood disorder F39 [facility] [id number] [place] [address] 36755- 9586 Mar, [facility] [id number] [place] [address] 32174- 5518 Mar, [facility] [id number] [place] [address] 45439- 4572 Mar, [facility] [id number] [place] [address] 40504- 4496 Mar, Mood disorder F39 [facility] [id number] [place] [address] 22686- 2022 Feb, [facility] [id number] [place] [address] 73494- 4496 Feb, Diabetes E11.9 and Bronchitis J40 [facility] [id number] [place] [address] 50270- 7651 Feb, [facility] [id number] [place] [address] 84483- 6818 Feb, [facility] [id number] [place] [address] 41135- 9240 Feb, Major depression, recurrent, full remission F33.42 and KELLY ( generalized anxiety disorder) F41.1 [facility] [id number] [place] [address] 16726- 8254 Feb, [facility] [id number] [place] [address] 51908- 5646 Feb, Single major depressive episode, in partial or unspecified remission F32.5 [facility] [id number] [place] [address] 35159- 2037 Jan, Fatigue 780.79 [facility] [id number] [place] [address] 29246- 7943 Jan, [facility] [id number] [place] [address] 96316- 8531 Jan, Diabetes with other specified manifestations, type II or unspecified type, not stated as uncontrolled 250.80 [place] [id number] [place] [address] 60155- 9337 Jan, [place] [id number] [place] [address] 76252- 2992 Dec, Hot flashes 627.2 ; Memory loss 780.93 and Joint pain 719.40 [place] [id number] [place] [address] 35794- 5364 Dec, Major depression, recurrent 296.30 ; Generalized anxiety disorder 300.02 ; Adjustment disorder with depressed mood 309.0 and No condition on Tor[place] II V71.09 [place] [id number] [place] [address] 49519- 2773 Dec, [place] [id number] [place] [address] 56004- 5021 Nov, Cognitive and neurobehavioral dysfunction 294.9 ; Major depressive disorder, recurrent episode, moderate degree 296.32 and Anxiety state , unspecified 300.00 [place] [id number] [place] [address] 88777- 5082 Nov, [place] [address] [place] [address] 08338- 6422 Nov, Bronchitis 490 and Diabetes with other specified manifestations, type II or unspecified type, not stated as uncontrolled 250.80 [place] [id number] [place] [address] 30168- 8843 Nov, Major depressive disorder, recurrent episode, moderate 296.32 and Anxiety disorder, unspecified 300.00 [place] [id number] [place] [address] 11485- 3210 Nov, Anxiety, generalized 300.02 ; Intermittent explosive disorder 312.34 ; No condition on Torrance II V71.09 and No condition on axis III V71.09 [place] [id number] [place] [address] 78086- 8418 Oct, Diabetes with other specified manifestations, type II or unspecified type, not stated as uncontrolled 250.80 ; Urinary tract infection, site not specified 599.0 and Bronchitis [address] [place] [id number] [place] [address] 52890- 4619 Oct, Intermittent explosive disorder 312.34 ; Bipolar 1 disorder , depressed, moderate 296.52 ; Major depression, chronic 296.20 ; No condition on Torrance II V71.09 and No condition on axis III V71.09 [place] [id number] [place] [address] 47903- 2753 Oct, Major depressive disorder, recurrent episode, moderate 296.32 ; Anxiety state 300.00 ; Cognitive decline 294.9 and No condition on [place] II V71.09 [address] [place] [address] 04104- 9552 Oct, [place] [id number] [place] [address]- 7222 Oct, Major depressive disorder, recurrent episode, moderate 296.32 ; Anxiety disorder, unspecified 300.00 and Persistent disorder of initiating or maintaining sleep 307.42 [place] [id number] [place] [address] 01281- 3069 September, Diabetes with other specified manifestations, type II or unspecified type, not stated as uncontrolled 250.80 ; Memory loss 780.93 and Cognitive complaints 799.59 [place] [id number] [place] [address] 45844- 8184 September, No condition on [place] II V71.09 ; Major depression, recurrent 296.30 and Persistent mood [affective] disorder, unspecified 296.90 [place] [id number] [place] [address]- 1336 28 Aug, 2014 [facility] [place] [facility] [address] [id number] [place] [address]- 0738 14 Aug, 2014 [facility] [place] [facility] [address] [facility] [id number] 0145 Aug, [facility] [place] [facility] [address] [facility] [id number] [place] [address]- 3859 Jul, [facility] [place] [facility] [address] [facility] [id number] [place] [address]- 3465 Jul, [facility] [place] [facility] [address] [facility] [id number] [place] [address]- 7689 Jul, [facility] [place] [facility] [address] [facility] [id number] [place] [address]- 4838 Jul, [facility] [place] [facility] [address] [place] [id number] [place] [address]- 0247 Jul, [facility] [place] [facility] [address] [facility] [id number] [address] Jun, [facility] [place] [facility] [address] [facility] [id number][place] [address] Jun, [facility] [place] [facility] [address] [facility] [id number][place] [address] Jun, 2014 [facility] [place] [facility] [address] [facility] [id number][place] [address] Jun, 2014 [facility] [place] [facility] [address] [facility] [id number][place] [address] Jun, 2014 [facility] [place] [facility] [address] [facility] [id number][place] [address] Jun, 2014 [facility] [place] [facility] [address] [facility] [id number], [place] [address] Jun, 2014 [facility] [place] [facility] [address] [facility] [id number] [id number] Jun, 2014 [facility] [place] [facility] [address] [id number] [place] [address] Jun, 2014 [facility] [place] [facility] [address] [id number] [place] [address] Jun, 2014 [facility] [place] [facility] [address] [id number] [place] [address] Jun, 2014 [facility] [place] [facility] [address] [id number] [place] [address]34 Jun, 2014 [facility] [place] [facility] [address] [id number] [place] [address] 8475 Jun, [facility] [place] [facility] [address] [id number] [place] [address]237 May, [facility] [place] [facility] [address] [id number] [place] [address] 8662 May, [facility] [place] [facility] [address] [id number] [place] [address] 2811 Apr, [facility] [place] [facility] [address] [id number] [place] [address] 5036 Apr, [facility] [place] [facility] [address] [id number] [place] [address] 5218 Apr, [facility] [place] [facility] [address] [id number] [place] [address]- 0725 Apr, [facility] [place] [facility] [address] [id number] [place] [address] 6201 Apr, [facility] [place] [facility] [address] [id number] [place] [address] 7074 Apr, [facility] [place] [facility] [address] [id number] [place] [address]- 7608 Apr, [facility] [place] [facility] [address] [id number] [place] [address]- 7523 Apr, [facility] [place] [facility] [address] [id number] [place] [address]- 1734 15 Apr, 2014 [facility] [place] [facility] [address] [id number] [place] [address]- 5234 15 Apr, 2014 [facility] [place] [facility] [address] [id number] [place] [address] Apr, [facility] [place] [facility] [address] [id number] [place] [address]- 5881 Apr, [facility] [place] [facility] [address] [id number] [place] [address]- 5327 Apr, [facility] [place] [facility] [address] [id number] [place] [address]- 0559 Apr, [facility] [place] [facility] [address] [id number] [place] [address]- 1199 Apr, [facility] [place] [facility] [address] [id number] [place] [address]- 6178 Apr, [facility] [place] [facility] [address] [id number] [place] [address]- 2891 Apr, [facility] [place] [facility] [address] [id number] [place] [address]- 7087 Apr, [facility] [place] [facility] [address] [facility] [id number] [place] [address]- 8146 Apr, [facility] [place] [facility] [address] [id number] [place] [address]- 3730 Apr, [facility] [place] [facility] [address] [id number] [place] [address]- 0218 Mar, [facility] [place] [facility] [address] [id number] [place] [address]- 1240 Mar, [facility] [place] [facility] [address] [id number] [place] [address]- 9098 Mar, [facility] [place] [facility] [address] [id number] [place] [address]- 2685 Mar, [facility] [place] [facility] [address] [id number] [place] [address]- 2605 Mar, [facility] [place] [facility] [address] [id number] [place] [address]- 1031 Mar, [facility] [place] [facility] [address] [id number] [place] [address]- 8669 Mar, [facility] [place] [facility] [address] [id number] [place] [address]- 8175 Mar, [facility] [place] [facility] [address] [id number] [place] [address]- 5787 Mar, [facility] [place] [facility] [address] [id number] [place] [address]- 9340 Mar, [facility] [place] [facility] [address] [id number] [place] [address]- 4655 Mar, [facility] [place] [facility] [address] [id number] [place] [address]- 2375 Mar, [facility] [place] [facility] [address] [id number] [place] [address]- 4670 Mar, [facility] [place] [facility] [address] [id number] [place] [address] 8350 Feb, [facility] [place] [facility] [address] [id number] [place] [address]- 2446 Feb, [facility] [place] [facility] [address] [id number] [place] [address]- 3100 30 Feb, 2014 [facility] [place] [facility] [address] [id number] [place] [address]- 5065 Feb, [facility] [place] [facility] [address] [id number] [place] [address]- 7969 Feb, [facility] [place] [facility] [address] [id number] [place] [address]- 0943 Feb, [facility] [place] [facility] [address] [id number] [place] [address]- 7066 Feb, [facility] [place] [facility] [address] [id number] [place] [address]- 8673 Feb, [facility] [place] [facility] [address] [id number] [place] [address]- 2088 Feb, [facility] [place] [facility] [address] [id number] [place] [address]- 4585 Feb, [facility] [place] [facility] [address] [id number] [place] [address]- 2205 Feb, [facility] [place] [facility] [address] [id number] [place] [address]- 7335 Feb, [facility] [place] [facility] [address] [id number] [place] [address]- 5254 Feb, [facility] [place] [facility] [address] [id number] [place] [address]- 5255 Feb, [facility] [place] [facility] [address] [id number] [place] [address]- 5299 Feb, [facility] [place] [facility] [address] [id number] [place] [address]- 3699 10 Jan, 2014 [facility] [place] [facility] [address] [id number] [place] [address]- 0924 08 Jan, 2014 [facility] [place] [facility] [address] [id number] [place] [address]- 8639 08 Jan, 2014 [facility] [place] [facility] [address] [id number] [address] 08 Jan, 2014 [facility] [place] [facility] [address] [id number] [place] [address]- 6948 08 Jan, 2014 [facility] [place] [facility] [address] [id number] [place] [address]- 6898 Dec, [facility] [place] [facility] [address] [id number] [place] [address]- 0658 Dec, [facility] [place] [facility] [address] [id number] [place] [address]- 6515 Dec, [facility] [place] [facility] [address] [id number] [place] [address]- 4535 Dec, [facility] [place] [facility] [address] [id number] [place] [address] Nov, [facility] [place] [facility] [address] [id number] [place] [address]- 9531 Nov, [facility] [place] [facility] [address] [id number] [place] [address]- 3855 Nov, [facility] [place] [facility] [address] [id number] [place] [address]- 4865 Nov, [facility] [place] [facility] [address] [id number] [place] [address]- 1945 Nov, [facility] [place] [facility] [address] [id number] [place] [address]- 1149 Nov, [facility] [place] [facility] [address] [id number] [place] [address]- 7001 Nov, [facility] [place] [facility] [address] [id number] [place] [address]- 1845 Nov, [facility] [place] [facility] [address] [id number] [place] [address]- 6226 Nov, [facility] [place] [facility] [address] [id number] [place] [address]- 8458 Nov, [facility] [place] [facility] [address] [id number] [place] [address]- 3647 Oct, [facility] [place] [facility] [address] [id number] [place] [address]- 4068 Oct, [facility] [place] [facility] [address] [id number] [place] [address]- 2342 September, [facility] [place] [facility] [address] [id number] [place] [address]- 1735 September, [facility] [place] [facility] [address] [id number] [place] [address]- 0315 September, [facility] [place] [facility] [address] [id number] [place] [address]- 8122 September, [facility] [place] [facility] [address] [id number] [place] [address]- 3605 16 Aug, 2013 [facility] [place] [facility] [address] [id number] [place] [address]- 6110 Aug, [facility] [place] [facility] [address] [id number] [place] [address]- 4700 Aug, [facility] [place] [facility] [address] [id number] [place] [address]- 5919 Jul, [facility] [place] [facility] [address] [id number] [place] [address]- 6545 Jul, [facility] [place] [facility] [address] [id number] [place] [address]- 3564 Jul, [facility] [place] [facility] [address] [id number] [place] [address]- 0150 Jul, [facility] [place] [facility] [address] [id number] [place] [address]- 3433 May, [facility] [place] [facility] [address] [id number] [place] [address]- 6584 May, [facility] [place] [facility] [address] [id number] [place] [address]- 8542 May, [facility] [place] [facility] [address] [id number] [place] [address]- 0613 Mar, [facility] [place] [facility] [address] [id number] [place] [address]- 0322 15 Mar, 2013 [facility] [place] [facility] [address] [id number] [place] [address]- 8239 13 Mar, 2013 [facility] [place] [facility] [address] [id number] [place] [address]- 1794 Mar, [facility] [place] [facility] [address] [id number] [place] [address]- 3701 Feb, [facility] [place] [facility] [address] [id number] [place] [address]- 9676 Feb, [facility] [place] [facility] [address] [id number] [place] [address]- 1610 Feb, [facility] [place] [facility] [address] [id number] [place] [address]- 3467 Jan, [facility] [place] [facility] [address] [id number] [place] [address]- 9147 Jan, [facility] [place] [facility] [address] [id number] [place] Jan, [facility] [place] [facility] [address] [id number] [place] [address]- 9895 Dec, [facility] [place] [facility] [address] [id number] [place] [address]- 8109 Dec, [facility] [place] [facility] [address] [id number] [place] [address]- 8000 Dec, [facility] [place] [facility] [address] [id number] [place] [address]- 1043 Dec, [facility] [place] [facility] [address] [id number] [place] [address]- 5517 Nov, [facility] [place] [facility] [address] [id number] [place] [address]- 3878 Oct, [facility] [place] [facility] [address] [id number] [place] [address]- 7688 Oct, [facility] [place] [facility] [address] [id number] [place] [address]- 3639 September, [facility] [place] [facility] [address] [id number] [place] [address]- 2311 September, [facility] [place] [facility] [address] [id number] [place] [address]- 5756 September, [facility] [address] [id number] [place] [address]- 5452 30 Aug, 2012 [facility] [address] [id number] [place] [address] Aug, [facility] [address] [id number] [place] [address]- 8035 Aug, [facility] [address] [id number] [place] [address]- 4328 Aug, [facility] [address] [id number] [place] [address]- 0889 26 Jul, 2012 [facility] [address] [id number] [place] [address]- 0742 Jul, [facility] [address] [id number] [place] [address]- 0952 Jul, [facility] [address] [id number] [place] [address]- 6406 15 Jul, 2012 [facility] [address] [id number] [place] [address]- 6511 14 Jul, 2012 [facility] [address] [id number] [place] [address]- 3038 Jul, [facility] [place] [facility] [address] [id number] [place] [address]- 1559 Jul, [facility] [address] [id number] [place] [address]- 0071 Jun, [facility] [place] [facility] [address] [id number] [place] [address]- 1220 Jun, [facility] [place] [facility] [address] [id number] [place] [address]- 5876 05 Jun, 2012 [facility] [place] [facility] [address] [id number] [place] [address]- 2031 Jun, [facility] [place] [facility] [address] [id number] [place] [address]- 3468 May, [facility] [place] [facility] [address] [id number] [place] [address]- 8992 May, [facility] [place] [facility] [address] [facility] [id number] [place] [address]- 9854 May, [facility] [place] [facility] [address] [id number] [place] [address]- 5161 May, [facility] [place] [facility] [address] [id number] [place] [address]- 1621 May, [facility] [place] [facility] [address] [id number] [place] [address]- 6376 Apr, [facility] [place] [facility] [address] [id number] [place] [address]- 7337 Apr, [facility] [place] [facility] [address] [id number] [address]- 5525 Mar, [facility] [place] [facility] [address] [id number] [place] [address]- 0561 Mar, [facility] [place] [facility] [address] [id number] [place] [address]- 2719 Mar, [facility] [place] [facility] [address] [id number], [place] [address]- 7749 Mar, [facility] [place] [facility] [address] [id number], [place] [address]- 6030 Mar, [facility] [place] [facility] [address] [id number] [place] [address]- 8125 Mar, [facility] [place] [facility] [address] [facility] [id number], [place] [address]- 6507 Mar, [facility] [place] [facility] [address] [facility] [id number], [place] [address]- 7028 Mar, [facility] [place] [facility] [address] [id number] [place] [address]- 7392 Mar, [facility] [place] [facility] [address] [id number] [place] [address]- 4021 Mar, [facility] [place] [facility] [address] [id number] [place] [address]- 4216 Feb, [facility] [place] [facility] [address] [id number] [place] [address]- 8758 Feb, [facility] [place] [facility] [address] [id number] [place] [address]- 9593 Feb, [facility] [place] [facility] [address] [id number] [place] [address]- 3926 Feb, [facility] [place] [facility] [address] [id number] [place] [address]- 7950 Feb, [facility] [place] [facility] [address] [id number] [place] [address]- 2624 Feb, [facility] [place] [facility] [address] [id number] [place] [address]- 4650 Feb, [facility] [place] [facility] [address] [id number] [place] [address]- 3061 Jan, [facility] [place] [facility] [address] [id number] [place] [address]- 5616 Jan, [facility] [place] [facility] [address] [id number] [place] [address]- 8031 Dec, [facility] [place] [facility] [address] [id number] [place] [address]- 7252 Dec, [facility] [place] [facility] [address] [id number] [place] [address]- 6493 Dec, [facility] [place] [facility] [address] [id number] [place] [address]- 8110 Dec, [facility] [place] [facility] [address] [id number] [place] [address]- 9184 Dec, [facility] [place] [facility] [address] [id number] [place] [address]- 7633 Dec, [facility] [place] [facility] [address] [id number] [place] [address]- 1271 Nov, [facility] [place] [facility] [address] [id number] [place] [address]- 1671 Nov, [facility] [place] [facility] [address] [id number] [place] [address]- 9202 Nov, [facility] [place] [facility] [address] [id number] [place] [address]- 4201 Nov, [facility] [place] [facility] [address] [id number] [place] [address]- 9035 September, [facility] [place] [facility] [address] [id number] [place] [address]- 4790 September, [facility] [place] [facility] [address] [id number] [place] [address]- 8309 September, [facility] [place] [facility] [address] [id number] [place] [address]- 8629 Jul, [facility] [place] [facility] [address] [id number] [place] [address]- 1063 29 Jun, 2011 [facility] [place] [facility] [address] [id number] [place] [address]- 6872 Jun, [facility] [place] [facility] [address] [id number] [place] [address]- 0367 Jun, [facility] [place] [facility] [address] [id number] [place] [address]- 2208 Apr, [facility] [place] [facility] [address] [id number] [place] [address]- 7766 Mar, [facility] [place] [facility] [address] [id number] [place] [address]- 4569 15 Mar, 2011 [facility] [place] [facility] [address] [id number], [place] [address]- 3812 Feb, [facility] [address] [facility] [id number], [place] [address]- 7488 Feb, [facility] [address] [facility] [id number], [place] [address]- 6320 Feb, [facility] [address] [facility] [id number], [place] [address]- 6932 Jul, [facility] [address] [facility] [id number], [place] [address]- 7046 Feb, IMMUNIZATIONS No Known Immunizations SOCIAL HISTORY Never Assessed REASON FOR VISIT Wart removal--Alecia Lofton MA PLAN OF CARE VITAL SIGNS Height 62 in 2017-04-25 Weight 247.4 lbs 2017-04-25 Temperature 98.3 degrees Fahrenheit 2017-04-25 Heart Rate 88 bpm 2017-04-25 Respiratory Rate 20 2017-04-25 BMI 45.25 kg/m2 2017-04-25 Blood pressure systolic 130 mmHg 2017-04-25 Blood pressure diastolic 88 mmHg 2017-04-25 MEDICATIONS Medication Instructions Dosage Frequency Start Date End Date Duration Status Glucocard Expression Test - as directed 24h Nov, Active Lasix 20 mg Orally Once a day 1 tablet 24h Nov, 30 day(s) Active Spironolactone 25 MG Orally Once a day 1 tablet 24h Active Actos 30 MG Orally Once a day 1 tablet 24h Jul, 30 Active Glucocard Expression Monitor w/Device as directed Nov, Active Lisinopril-Hydrochlorothiazide 20-25 MG Orally Once a day 1 tablet 24h 30 Active Methotrexate 2.5 MG Orally 1 time per week 6 28 Active Benzonatate 100 mg Orally Three times a day 1 capsule as needed 8h Mar, Active Venlafaxine HCl 37.5 MG Orally 2 times a day 1 tablet with food 12h Mar 30 day(s) Active Potassium Chloride Marie ER 20 MEQ Orally Once a day 1 tablet with food 24h Active Clonidine HCl 0.1 MG Orally Twice a day 1 tablet 12h Nov, 30 day(s) Active Folic Acid 1 MG TAKE ONE TABLET BY MOUTH ONCE DAILY (DO NOT TAKE ON DAYS YOU TAKE METHOTREXATE) 30 Active Proventil HFA 108 (90 Base) MCG/ACT INHALE TWO PUFFS BY MOUTH FOUR TIMES DAILY NEEDED 25 Active Loratadine 10 mg Orally Once a day TAKE ONE TABLET BY MOUTH DAILY 24h 30 Active Omeprazole 20 mg Orally Once a day 1 capsule 24h 30 Active Victoza 0.6 mg/0.1 mL (18 mg/3 mL) Subcutaneous Once a day inject 0.3 milliliter (1.8 mg) by subcutaneous route once daily 24h 17 Dec, 2011 90 days Active Guaifenesin 400 mg Orally every 4 hrs 1 tablet as needed 4h Mar, Active PredniSONE 20 MG Orally Once a day 1 tablet 24h 30 Active Venlafaxine HCl 75 MG Orally 2 times a day 1 tablet with food 12h Jan, 30 day(s) Active Nyamyc 024205 UNIT/GM APPLY TO AFFECTED AREA 12h 5 Active RESULTS No Results PROCEDURES Procedure Date Ordered Result Body Site EXC BENIGN LEISON <0.5 cm (specify location) 2017-04-25 N/A EXC TR-EXT B9 MIS 0.5 < CM Apr 25, 2017 INSTRUCTIONS MEDICATIONS ADMINISTERED No Known Medications MEDICAL (GENERAL) HISTORY Type Description Date Medical History type II diabetes-dx'd 12/2010 Medical History dysfunctional uterine bleeding--endometrial bx 12/2010 Medical History asthma Medical History hypertension Medical History obesity Medical History anxiety Medical History autoimmune disease Surgical History x1 Hospitalization History child Hospitalization History Asthma
--- OUTSIDE RECORDS SUMMARY | 2018-02-02 23:57 | XMS REPORT ---
Author Author MACY TAMAYO [facility] Address [address] [place] [address] Care Team Providers Care Records Analyst Name Role Phone MACY TAMAYO Unavailable PROBLEMS Type Condition ICD9-CM Code XFT15-RA Code Onset Dates Condition Status SNOMED Code Problem Menopause Z78.0 Active 213733738 Problem Anxiety F41.9 Active 56458813 Problem Osteoarthritis of right knee, unspecified osteoarthritis type M17.9 Active 102354723 Problem Allergic rhinitis due to pollen J30.1 Active 15120070 Problem Mood disorder F39 Active 42935866 Problem Lupus erythematosus L93.0 Active 720119153 Problem Diabetes type 2, controlled E11.9 Active 77535358 ALLERGIES Unknown Allergies SOCIAL HISTORY No smoking Hx information available PLAN OF CARE VITAL SIGNS MEDICATIONS Medication Instructions Dosage Frequency Start Date End Date Duration Status Tessalon Perles 200 mg Orally Three times a day prn cough 1 capsule as needed May, Active RESULTS No Results PROCEDURES No Known procedures IMMUNIZATIONS No Known Immunizations
--- OUTSIDE RECORDS SUMMARY | 2018-02-02 23:58 | XMS REPORT ---
Author Author ROSANA Scott Organization [facility] Address [address] [place] [address] Care Team Providers Care Administrative Specialist Name Role Phone ROSANA Scott Unavailable PROBLEMS Type Condition ICD9-CM Code VAT86-PU Code Onset Dates Condition Status SNOMED Code Problem Plantar warts B07.0 Active 31146944 Problem Lumbago with sciatica, left side M54.42 Active 405856250 Problem Plantar wart of both feet B07.0 Active [id number] Problem Morbid (severe) obesity due to excess calories E66.01 Active 665225131 Problem Dermatomyositis M33.90 Active 246277898 Problem Tachycardia with heart rate 121-140 beats per minute R00.0 Active 0260891 Problem Controlled type 2 diabetes mellitus without complication, without long -term current use of insulin E11.9 Active 082205963 Problem Enlarged thyroid gland E04.9 Active 0833153 Problem Body mass index (BMI) of 45.0-49.9 in adult Z68.42 Active 536985651 Problem Menopause Z78.0 Active 556311366 Problem Allergic rhinitis due to pollen J30.1 Active 35565952 Problem Osteoarthritis of right knee, unspecified osteoarthritis type M17.9 Active 603148771 Problem Anxiety F41.9 Active 04493410 Problem Mood disorder F39 Active 63912781 Problem Other chronic pain G89.29 Active 34403020 Problem Diabetes type 2, controlled E11.9 Active 52255563 Problem Arthritis M19.90 Active 9550932 ALLERGIES Substance Reaction Event Type Date Status Fluarix Quadrivalent vomiting Drug Allergy Feb, Active Zoloft makes very angry Drug Allergy Feb, Active Fluarix vomiting Drug Allergy Feb, Active Aspirin rash Drug Allergy Feb, Active Latex, Natural Rubber rash Non Drug Allergy Feb, Active ENCOUNTERS Encounter Location Date Diagnosis [facility] [address] [facility] [id number] [place] [address] 46180- 2695 Oct, [place] [address] [place] [id number] [place] [address] 56346- 1300 September, Other chronic pain G89.29 [facility] [address] [id number] [place] [address] 88928- 0247 Aug, Mood disorder F39 [place] [address] 97926- 6084 Aug, Other chronic pain G89.29 ; Controlled type 2 diabetes mellitus without complication, without long-term current use of insulin E11.9 ; Low back pain M54.5 and Tinea corporis B35.4 [place] [address] [place] [id number] [place] [address] 56087- 9060 Aug, Mood disorder F39 and Anxiety F41.9 [place] [address] [place] [id number] [place] [address] 65225- 7652 Aug, Mood disorder F39 and Anxiety F41.9 [place] [address] [place] [id number] [place] [address] 60002- 2400 Jul, [facility] [address] [place] [address] [id number] [place] [address] 07128 -0032 Jul, Scabies B86 and BMI 45.0-49.9, adult Z68.42 [place] [address] [place] [id number] [place] [address] 11949- 4846 Jul, [place] [address] [place] [id number] [place] [address] 82389- 0325 Jul, Mood disorder F39 and Anxiety F41.9 [place] [address] 94927- 1504 Jul, [facility] [address] [id number] [place] [address] 01361 -1531 Jun, Bronchitis J40 ; Dark urine R82.99 and BMI 45.0-49.9, adult Z68.[id number] [place] [address] 90877- 8592 14 Jun, 2017 Acute pain of right shoulder M25.511 and Acute pain of right knee M25.561 [place] [id number] [place] [address] 01064- 4168 May, BMI 40.0-44.9, adult Z68.41 ; Controlled type 2 diabetes mellitus without complication, without long-term current use of insulin E11.9 ; Muscle cramping R25.2 ; Hot flashes R23.2 ; Mood disorder F39 ; Anxiety F41.9 and Morbid (severe) obesity due to excess calories E66.[address] 47455- 4565 May, BMI 40.0-44.9, adult Z68.41 ; Controlled type 2 diabetes mellitus without complication, without long-term current use of insulin E11.9 ; Muscle cramping R25.2 and Hot flashes R23.2 [place] [id number] [place] [address] 78510- 2993 May, Tachycardia with heart rate 121-140 beats per minute R00.0 ; Morbid (severe) obesity due to excess calories E66.01 ; Diabetes type 2, controlled E11.9 and Enlarged thyroid gland E04.9 [place] [id number] [place] [address] 59211- 3429 May, Encounter for well woman exam with [...] Dysuria R30.0 and Screening breast examination Z12.31 [place] [id number] [place] [address] 74728- 4271 Apr, Mood disorder F39 ; Other chronic pain G89.29 and Anxiety F41.9 [facility] [address] [place] [id number] [place] [address] 84663- 5338 Apr, Lumbago with sciatica, left side M54.42 and Other chronic pain G89.29 [facility] [address] 40993- 0914 Apr, Lupus erythematosus L93.0 [facility] [address] 11008- 4144 Mar, Plantar wart of both feet B07.0 [facility] [address] 53082- 3476 Mar, Lupus erythematosus L93.0 and Sinus drainage J34.89 [facility] [address] 25127- 4373 Mar, Mood disorder F39 ; Other chronic pain G89.29 and Anxiety F41.9 [facility] [address] 55950- 8343 Mar, Mood disorder F39 ; Arthritis M19.90 and Plantar warts B07.0 [facility] [address] [id number] [place] [address] 68906- 9543 Feb, Lupus erythematosus L93.0 [facility] [address] [place] [id number] [place] [address] 97579- 6068 Feb, Other chronic pain G89.29 [facility] [address] [id number] [place] [address] 17047- 8353 Feb, Mood disorder F39 and Anxiety F41.9 [facility] [address] 47040- 2267 Jan, [facility] [address] [id number] [place] [address] 89324- 9066 Jan, Mood disorder F39 [facility] [address] 66131- 0714 Dec, Nail, ingrown L60.0 [facility] [id number] [place] [address] 82853- 7411 Dec, Nail, ingrown L60.0 [facility] [id number] [place] [address] 36109- 2288 Nov, Mood disorder F39 and Anxiety F41.9 [facility] [address] [id number] [place] [address] 18377- 0727 Nov, Sinus drainage J34.89 ; Hot flashes R23.2 ; Anxiety F41.9 and Diabetes type 2, controlled E11.9 [facility] [address] [id number] [place] [address] 67020- 8841 Nov, Nail, ingrown L60.0 [facility] [address] [id number] [place] [address] 32734- 7836 Oct, Anxiety F41.9 and Mood disorder F39 [facility] [address] [id number] [place] [address] 11275- 5874 Oct, Nail, ingrown L60.0 and Anxiety F41.9 [facility] [address] [id number] [place] [address] 96508- 5650 Oct, Lupus erythematosus L93.0 [facility] [address] [address] [id number] [place] [address] 05962- 9200 September, [facility] [id number] [place] [address] 96993- 6023 September, [facility] [id number] [place] [address] 10230- 0579 September, Lupus erythematosus L93.0 [facility] [id number] [place] [address] 22410- 6883 Aug, [facility] [id number] [place] [address] 06145- 5258 Aug, Mood disorder F39 and Anxiety F41.9 [facility] [id number] [place] [address] 24110- 9333 Aug, Lupus erythematosus L93.0 ; Diabetes type 2, controlled E11.9 and Localized edema R60.0 [facility] [id number] [place] [address] 05453- 1199 Aug, [facility] [address] [id number] [place] [address] 44881- 7069 Jul, Anxiety F41.9 and Mood disorder F39 [facility] [address] [place] [id number] [place] [address] 35511- 5534 Jul, Diabetes type 2, controlled E11.9 [facility] [address] [place] [id number] [place] [address] 01792- 6779 Jun, Anxiety F41.9 [facility] [address] [place] [id number] [place] [address] 93215- 1959 May, [facility] [address] [id number] [place] [address] 30490- 0416 May, [place] [address] [place] [id number] [place] [address] 10919- 6611 May, Nausea R11.0 ; Other chronic pain G89.29 and Pain in right knee M25.561 [place] [address] [place] [id number] [place] [address] 24672- 3469 May, [facility] [address] [place] [id number] [place] [address] 10923- 0554 Apr, Tear of medial meniscus of right knee, current, unspecified tear type, subsequent encounter S83.241D and Tear of lateral meniscus of right knee, current, unspecified tear type, subsequent encounter S83.281D [facility] [id number] [place] [address] 39463- 9666 09 Apr, 2016 Anxiety F41.9 and Mood disorder F39 [facility] [address] [id number] [place] [address] 99371- 1680 09 Apr, 2016 Anxiety F41.9 [facility] [id number] [place] [address] 97571- 9138 05 Apr, 2016 [facility] [address] [id number] [place] [address] 35827- 9976 Mar, [facility] [address] [id number] [place] [address] 37884- 0648 Mar, Lupus erythematosus L93.0 and Diabetes type 2, controlled E11.9 [facility] [address] [id number] [place] [address] 89509- 7856 Mar, Mood disorder F39 [facility] [address] [place] [id number] [place] [address] 81923- 5018 Mar, Tear of lateral meniscus of right knee, current, unspecified tear type, initial encounter S83.281A and Osteoarthritis of right knee, unspecified osteoarthritis type M17.9 [facility] [id number] [place] [address] 87412- 8353 Mar, [facility] [address] [id number] [place] [address] 79461- 0485 Feb, Mood disorder F39 [facility] [id number] [place] [address] 36195- 2176 Feb, Rash R21 [facility] [id number] [place] [address] 22998- 5104 Feb, [facility] [id number] [place] [address] 35009- 7820 Jan, Other chronic pain G89.29 and Muscle spasm M62.838 [facility] [address] [id number] [place] [address] 58854- 4526 Jan, Mood disorder F39 [facility] [id number] [place] [address] 01319- 0340 Jan, Pain in right knee M25.561 ; Other chronic pain G89.29 and Muscle spasm M62.838 [place] [id number] [place] [address] 55681- 6174 Dec, [place] [address] [place] [id number] [place] [address] 02361- 0546 Dec, [place] [address] [place] [id number] [place] [address] 32799- 5629 Nov, [place] [address] [place] [id number] [place] [address] 72090- 0777 Nov, Mood disorder F39 [place] [address] [place] [id number] [place] [address] 53612- 5769 Nov, Diabetes type 2, controlled E11.9 ; Bronchitis J40 ; Edema, unspecified type R60.9 ; Weight gain R63.5 and Right knee pain, unspecified chronicity M25.561 [place] [address] [place] [id number] [place] [address] 44620- 5441 Oct, Mood disorder F39 [place] [address] [place] [id number] [place] [address] 93070- 7440 Oct, Lupus erythematosus L93.0 and Bilateral edema of lower extremity R60.0 [place] [address] [place] [id number] [place] [address] 99314- 7591 Oct, Mood disorder F39 and Anxiety F41.9 [place] [address] [place] [id number] [place] [address] 38697- 6080 September, Mood disorder F39 ; Anxiety F41.9 and Anger reaction R45.4 [place] [address] [place] [id number] [place] [address] 28134- 2067 September, Diabetes type 2, controlled E11.9 ; Edema, unspecified type R60.9 and Fatigue, unspecified type R53.83 [place] [id number] [place] [address] 63442- 6583 Aug, Mood disorder F39 and Generalized anxiety disorder F41.1 [place] [address] [id number] [address]- 4247 Aug, Diabetes type 2, controlled E11.9 ; Sinusitis J32.9 and Mood disorder F39 [facility] [id number] [place] [address] 78094- 7406 15 Aug, 2015 Lupus erythematosus L93.0 [facility] [address] [id number] [place] [address] 22156- 0582 14 Aug, 2015 [facility] [id number] [place] [address] 28861- 7363 Aug, [facility] [address] [id number] [place] [address] 47685- 2539 Jul, Diabetes type 2, controlled E11.9 [facility] [address] [id number] [place] [address] 16905- 1717 Jul, Mood disorder F39 and Depression F32.9 [facility] [id number] [place] [address] 26253- 7314 Jul, Lupus erythematosus L93.0 and Diabetes type 2, controlled E11.9 [facility] [id number] [place] [address] 89611- 5257 Jul, Mood disorder F39 and Anxiety F41.9 [facility] [id number] [place] [address] 43978- 8605 Jul, [facility] [id number] [place] [address] 11125 2548 Jul, [facility] [id number] [place] [address] 04298- 9227 Jun, Mood disorder F39 and Anxiety F41.9 [facility] [id number] [place] [address] 35915- 7707 Jun, Mood disorder F39 [facility] [id number] [place] [address] 68897- 9331 18 Jun, 2015 [facility] [address] [place] [address]- 9945 15 Jun, 2015 [facility] [id number] [place] [address] 08800- 4029 Jun, Mood disorder F39 [facility] [address] [place] [address]- 9903 Jun, [facility] [id number] [place] [address] 86506- 7635 May, [facility] [id number] [place] [address] 13051- 0203 May, [facility] [id number] [place] [address] 95714- 8265 May, [facility] [id number] [place] [address] 00433- 6080 May, [facility] [id number] [place] [address] 30015- 2931 May, Anxiety F41.9 ; Dermatomyositis M33.90 and Diabetes type 2, controlled E11.9 [facility] [address] [place] [address] -8293 May, Sinusitis J32.9 and Cough R05 [facility] [address] [place] [address]- 0439 May, Mood disorder F39 [facility] [address] [place] [address]- 4730 May, Adjustment disorder with mixed anxiety and depressed mood F43.23 [facility] [address] [place] [address]- 7047 Apr, [facility] [address] [place] [address]- 6842 Apr, [facility] [address] [place] [address]- 0396 Apr, Generalized anxiety disorder F41.1 and Mood disorder F39 [facility] [address] [place] [address]- 6522 Mar, [facility] [id number] [place] [address] 86420- 8282 Mar, [facility] [id number] [place] [address] 11320- 4892 Mar, [facility] [id number] [place] [address] 97311- 9627 Mar, Mood disorder F39 [facility] [id number] [place] [address] 07484- 9012 Feb, [facility] [id number] [place] [address] 72526- 6813 Feb, Diabetes E11.9 and Bronchitis J40 [facility] [id number] [place] [address] 95747- 5777 Feb, [facility] [id number] [place] [address] 03106- 3071 Feb, [facility] [id number] [place] [address] 26463- 1213 Feb, Major depression, recurrent, full remission F33.42 and KELLY ( generalized anxiety disorder) F41.1 [facility] [id number] [place] [address] 23477- 8757 Feb, [facility] [id number] [place] [address] 65739- 0999 Feb, Single major depressive episode, in partial or unspecified remission F32.5 [facility] [id number] [place] [address] 70837- 3576 Jan, Fatigue 780.79 [facility] [id number] [place] [address] 63217- 0105 Jan, [facility] [id number] [place] [address] 99007- 9090 Jan, Diabetes with other specified manifestations, type II or unspecified type, not stated as uncontrolled 250.80 [place] [address] [place] [id number] [place] [address]- 0593 Jan, [place] [id number] [place] [address] 65571- 1356 Dec, Hot flashes 627.2 ; Memory loss 780.93 and Joint pain 719.40 [place] [id number] [place] [address] 32187- 3595 Dec, Major depression, recurrent 296.30 ; Generalized anxiety disorder 300.02 ; Adjustment disorder with depressed mood 309.0 and No condition on Iliff II V71.09 [place] [id number] [place] [address] 05725- 8725 Dec, [place] [id number] [place] [address] 54972- 6272 Nov, Cognitive and neurobehavioral dysfunction 294.9 ; Major depressive disorder, recurrent episode, moderate degree 296.32 and Anxiety state , unspecified 300.00 [place] [id number] [place] [address] 41938- 5550 Nov, [place] [id number] [place] [address] 17686- 1542 Nov, Bronchitis 490 and Diabetes with other specified manifestations, type II or unspecified type, not stated as uncontrolled 250.80 [place] [id number] [place] [address] 83922- 5198 Nov, Major depressive disorder, recurrent episode, moderate 296.32 and Anxiety disorder, unspecified 300.00 [place] [id number] [place] [address] 27458- 5739 Nov, Anxiety, generalized 300.02 ; Intermittent explosive disorder 312.34 ; No condition on Iliff II V71.09 and No condition on axis III V71.09 [place] [id number] [place] [address]- 2546 Oct, Diabetes with other specified manifestations, type II or unspecified type, not stated as uncontrolled 250.80 ; Urinary tract infection, site not specified 599.0 and Bronchitis [address] [place] [id number] [place] [address] 37589- 3115 Oct, Intermittent explosive disorder 312.34 ; Bipolar 1 disorder , depressed, moderate 296.52 ; Major depression, chronic 296.20 ; No condition on Iliff II V71.09 and No condition on axis III V71.09 [place] [id number] [place] [address] 87182- 3273 Oct, Major depressive disorder, recurrent episode, moderate 296.32 ; Anxiety state 300.00 ; Cognitive decline 294.9 and No condition on Iliff II V71.09 [place] [id number] [place] [address] 97318- 1151 Oct, [place] [id number] [place] [address] 13869- 4747 Oct, Major depressive disorder, recurrent episode, moderate 296.32 ; Anxiety disorder, unspecified 300.00 and Persistent disorder of initiating or maintaining sleep 307.42 [place] [id number] [place] [address] 02282- 5749 September, Diabetes with other specified manifestations, type II or unspecified type, not stated as uncontrolled 250.80 ; Memory loss 780.93 and Cognitive complaints 799.59 [place] [id number] [place] [address] 05868- 9338 September, No condition on Iliff II V71.09 ; Major depression, recurrent 296.30 and Persistent mood [affective] disorder, unspecified 296.90 [place] [id number] [place] [address] 32016- 8528 Aug, [place] [id number] [place] [address] 98037- 0994 Aug, [place] [id number] [place] [address] 84822- 9092 Aug, [facility] [place] [facility] [address] [id number] [place] [address]- 1965 Jul, [facility] [place] [facility] [address] [facility] [id number] [place] [address]- 3368 Jul, [facility] [place] [facility] [address] [facility] [id number] [place] [address]- 5590 Jul, [facility] [place] [facility] [address] [facility] [id number] [place] [address]- 6292 Jul, [facility] [place] [facility] [address] [facility] [id number] [place] [address]- 2158 Jul, [facility] [place] [facility] [address] [facility] [id number] [place] [address]- 2811 Jun, 2014 [facility] [place] [facility] [address] [facility] [id number] [place] [address] Jun, 2014 [facility] [place] [facility] [address] [facility] [id number], [place] [address] Jun, 2014 [facility] [place] [facility] [address] [facility] [id number] [place] [address] Jun, 2014 [facility] [place] [facility] [address] [facility] [id number], [place] [address] Jun, 2014 [facility] [place] [facility] [address] [facility] [id number], [place] [address] Jun, 2014 [facility] [place] [facility] [address] [facility] [id number], [place] [address] Jun, 2014 [facility] [place] [facility] [address] [facility] [id number], [place] [address] Jun, 2014 [facility] [place] [facility] [address] [facility] [id number], [place] [address] Jun, 2014 [facility] [place] [facility] [address] [facility] [id number][place] [address] Jun, 2014 [facility] [place] [facility] [address] [id number] [place] [address] Jun, 2014 [facility] [place] [facility] [address] [id number] [place] [address] [address] Jun, 2014 [facility] [place] [facility] [address] [id number] [place] [address] Jun, [facility] [place] [facility] [address] [id number] [place] [address] May, [facility] [place] [facility] [address] [id number] [place] [address] May, [facility] [place] [facility] [address] [id number] [place] [address] Apr, [facility] [place] [facility] [address] [id number] [place] [address] Apr, [facility] [place] [facility] [address] [id number] [place] [address] Apr, [facility] [place] [facility] [address] [id number] [place] [address] Apr, [facility] [place] [facility] [address] [id number] [place] [address] Apr, [facility] [place] [facility] [address] [id number] [place] [address] Apr, [facility] [place] [facility] [address] [id number] [place] [address] Apr, [facility] [place] [facility] [address] [id number] [place] [address] Apr, [facility] [place] [facility] [address] [id number] [place] [address] Apr, [facility] [place] [facility] [address] [id number] [place] [address] Apr, [facility] [place] [facility] [address] [id number] [place] [address] Apr, [facility] [place] [facility] [address] [id number] [place] [address] Apr, [facility] [place] [facility] [address] [id number] [place] [address] Apr, [facility] [place] [facility] [address] [id number] [place] [address] Apr, [facility] [place] [facility] [address] [id number] [place] [address] Apr, [facility] [place] [facility] [address] [address] [id number] [place] [address] Apr, [facility] [place] [facility] [address] [id number] [place] [address] Apr, [facility] [place] [facility] [address] [id number] [place] [address] 6421 Apr, [facility] [place] [facility] [address] [id number] [place] [address] 1670 Apr, [facility] [place] [facility] [address] [id number] [place] [address] 6310 Apr, [facility] [place] [facility] [address] [id number] [place] [address] 1573 Mar, [facility] [place] [facility] [address] [id number] [place] [address] 7253 Mar, [facility] [place] [facility] [address] [id number] [place] [address] 0421 Mar, [facility] [place] [facility] [address] [id number] [place] [address] 0053 Mar, [facility] [place] [facility] [address] [id number] [place] [address] 7332 Mar, [facility] [place] [facility] [address] [id number] [place] [address] 4605 Mar, [facility] [place] [facility] [address] [id number] [place] [address] 2648 Mar, [facility] [place] [facility] [address] [id number] [place] [address] 0840 Mar, [facility] [place] [facility] [address] [id number] [place] [address] 1316 Mar, [facility] [place] [facility] [address] [id number] [place] [address] 1143 Mar, [facility] [place] [facility] [address] [id number] [place] [address] 0028 Mar, [facility] [place] [facility] [address] [id number] [place] [address] 8629 Mar, [facility] [place] [facility] [address] [id number] [place] [address]- 7512 Mar, [facility] [place] [facility] [address] [id number] [place] [address] 7956 Feb, [facility] [place] [facility] [address] [id number] [place] [address] 5047 Feb, [facility] [place] [facility] [address] [id number] [place] [address] 9662 Feb, [facility] [place] [facility] [address] [id number] [place] [address]- 7337 Feb, [facility] [place] [facility] [address] [id number] [place] [address]- 1872 Feb, [facility] [place] [facility] [address] [id number] [place] [address]- 8471 Feb, [facility] [place] [facility] [address] [id number] [place] [address]- 6434 Feb, [facility] [place] [facility] [address] [id number] [place] [address]- 3547 Feb, [facility] [place] [facility] [address] [id number] [place] [address]- 8945 Feb, [facility] [place] [facility] [address] [id number] [place] [address]- 5908 Feb, [facility] [place] [facility] [address] [id number] [place] [address]- 7328 Feb, [facility] [place] [facility] [address] [id number] [place] [address]- 0063 Feb, [facility] [place] [facility] [address] [id number] [place] [address]- 4439 Feb, [facility] [place] [facility] [address] [id number] [place] [address]- 7666 Feb, [facility] [place] [facility] [address] [id number] [place] [address]- 6429 Feb, [facility] [place] [facility] [address] [id number] [place] [address]- 7881 Jan, [facility] [place] [facility] [address] [id number] [place] [address]- 6378 08 Jan, 2014 [facility] [place] [facility] [address] [id number] [place] [address]- 8710 08 Jan, 2014 [facility] [place] [facility] [address] [id number] [place] [address]- 9239 08 Jan, 2014 [facility] [place] [facility] [address] [id number] [place] [address]- 7376 Jan, [facility] [place] [facility] [address] [id number], [place] [address]37 Dec, [facility] [place] [facility] [address] [id number] [place] [address]- 6804 Dec, [facility] [place] [facility] [address] [id number] [place] [address]- 5593 Dec, [facility] [place] [facility] [address] [id number] [place] [address] 7667 Dec, [facility] [place] [facility] [address] [id number] [place] [address]- 9199 Nov, [facility] [place] [facility] [address] [id number] [place] [address]- 4742 Nov, [facility] [place] [facility] [address] [id number] [place] [address]- 9860 Nov, [facility] [place] [facility] [address] [id number] [place] [address]- 5207 Nov, [facility] [place] [facility] [address] [id number] [place] [address]- 3925 Nov, [facility] [place] [facility] [address] [id number] [place] [address]- 1795 Nov, [facility] [place] [facility] [address] [id number] [place] [address]- 5835 Nov, [facility] [place] [facility] [address] [id number] [place] [address]- 1504 Nov, [facility] [place] [facility] [address] [id number] [place] [address]- 0923 Nov, [facility] [place] [facility] [address] [id number] [place] [address]- 2368 Nov, [facility] [place] [facility] [address] [id number] [place] [address]- 0877 Oct, [facility] [place] [facility] [address] [id number] [place] [address]- 6140 Oct, [facility] [place] [facility] [address] [id number] [place] [address]- 2078 September, [facility] [place] [facility] [address] [id number] [place] [address]- 2059 September, [facility] [place] [facility] [address] [id number] [place] [address]- 5200 September, [facility] [place] [facility] [address] [id number] [place] [address]- 9949 September, [facility] [place] [facility] [address] [id number] [place] [address]- 4320 16 Aug, 2013 [facility] [place] [facility] [address] [id number] [place] [address]- 9223 14 Aug, 2013 [facility] [place] [facility] [address] [id number] [place] [address]- 9718 14 Aug, 2013 [facility] [place] [facility] [address] [id number] [place] [address]- 2964 24 Jul, 2013 [facility] [place] [facility] [address] [id number] [place] [address]- 1993 24 Jul, 2013 [facility] [place] [facility] [address] [id number] [place] [address]- 2985 14 Jul, 2013 [facility] [place] [facility] [address] [id number] [place] [address]- 7130 14 Jul, 2013 [facility] [place] [facility] [address] [id number] [place] [address]- 2545 20 May, 2013 [facility] [place] [facility] [address] [id number] [place] [address]- 3681 17 May, 2013 [facility] [place] [facility] [address] [id number] [place] [address]- 0582 17 May, 2013 [facility] [place] [facility] [address] [id number] [place] [address]- 3409 15 Mar, 2013 [facility] [place] [facility] [address] [id number] [place] [address]- 0656 15 Mar, 2013 [facility] [place] [facility] [address] [id number] [place] [address]- 4053 13 Mar, 2013 [facility] [place] [facility] [address] [id number] [place] [address]- 5188 13 Mar, 2013 [facility] [place] [facility] [address] [id number] [place] [address]- 9600 16 Feb, 2013 [facility] [place] [facility] [address] [id number] [place] [address]- 4831 Feb, [facility] [place] [facility] [address] [id number] [place] [address]- 0323 Feb, [facility] [place] [facility] [address] [id number] [place] [address]- 8636 16 Jan, 2013 [facility] [place] [facility] [address] [id number] [place] [address] 2548 Jan, [facility] [place] [facility] [address] [id number] [place] [address]- 1671 Jan, [facility] [place] [facility] [address] [id number] [place] [address]- 9471 Dec, [facility] [place] [facility] [address] [id number] [place] [address]- 0644 Dec, [facility] [place] [facility] [address] [id number] [place] [address]- 6259 Dec, [facility] [place] [facility] [address] [id number] [place] [address]- 6036 Dec, [facility] [place] [facility] [address] [id number] [place] [address]- 2019 Nov, [facility] [place] [facility] [address] [id number] [place] [address]- 6974 Oct, [facility] [place] [facility] [address] [id number] [place] [address]- 6301 Oct, [facility] [place] [facility] [address] [id number], [place] [address]- 0970 September, [facility] [place] [facility] [address] [id number] [place] [address]- 2538 September, [facility] [place] [facility] [address] [id number] [place] [address]- 6145 September, [facility] [place] [facility] [address] [id number] [place] [address]- 1780 Aug, [facility] [place] [facility] [address] [id number] [place] [address]- 3434 18 Aug, 2012 [facility] [address] [id number] [place] [address]- 8326 17 Aug, 2012 [facility] [address] [id number] [place] [address] 2546 09 Aug, 2012 [facility] [address] [id number] [place] [address]- 8242 26 Jul, 2012 [facility] [address] [id number] [place] [address]- 6677 25 Jul, 2012 [facility] [address] [id number] [place] [address]- 7035 21 Jul, 2012 [facility] [address] [id number] [place] [address]- 9456 15 Jul, 2012 [facility] [address] [id number] [place] [address]- 1864 14 Jul, 2012 [facility] [address] [id number] [place] [address]- 9090 13 Jul, 2012 [facility] [address] [id number] [place] [address]- 5607 13 Jul, 2012 [facility] [address] [id number] [place] [address]- 1992 06 Jun, 2012 [facility] [address] [id number] [place] [address] 2546 Jun, [facility] [address] [id number] [place] [address] 2548 Jun, [facility] [address] [id number] [place] [address]- 4706 Jun, [facility] [address] [id number] [place] [address] 2546 May, [facility] [address] [id number] [place] [address]- 0225 May, [facility] [place] [facility] [address] [id number] [place] [address]- 1731 May, [facility] [place] [facility] [address] [id number] [place] [address]- 1644 May, [facility] [place] [facility] [address] [id number] [place] [address]- 0950 May, [facility] [place] [facility] [address] [id number] [place] [address]- 9291 Apr, [facility] [place] [facility] [address] [id number] [place] [address]- 2687 Apr, [facility] [place] [facility] [address] [id number] [place] [address]- 7761 Mar, [facility] [place] [facility] [address] [id number] [place] [address]- 6486 Mar, [facility] [place] [facility] [address] [id number] [place] [address]- 7426 Mar, [facility] [place] [facility] [address] [id number] [place] [address]- 9352 Mar, [facility] [place] [facility] [address] [id number] [place] [address]- 5583 Mar, [facility] [place] [facility] [address] [id number] [place] [address]- 8882 Mar, [facility] [place] [facility] [address] [id number], [place] [address]- 5313 Mar, [facility] [place] [facility] [address] [id number] [place] [address]- 6249 Mar, [facility] [place] [facility] [address] [id number] [place] [address]- 0742 Mar, [facility] [place] [facility] [address] [id number] [place] [address]- 9516 Mar, [facility] [place] [facility] [address] [id number] [place] [address]- 1703 Feb, [facility] [place] [facility] [address] [id number] [place] [address]- 0246 Feb, [facility] [place] [facility] [address] [id number] [place] [address]- 7367 Feb, [facility] [place] [facility] [address] [id number] [place] [address]- 8296 Feb, [facility] [place] [facility] [address] [id number] [place] [address]- 1629 Feb, [facility] [place] [facility] [address] [id number] [place] [address]- 6385 Feb, [facility] [place] [facility] [address] [id number] [place] [address]- 2048 Feb, [facility] [place] [facility] [address] [id number] [place] [address]- 2375 Jan, [facility] [place] [facility] [address] [id number] [place] [address]- 7841 Jan, [facility] [place] [facility] [address] [id number] [place] [address]- 4077 Dec, [facility] [place] [facility] [address] [id number] [place] [address]- 4728 Dec, [facility] [place] [facility] [address] [id number] [place] [address]- 7470 Dec, [facility] [place] [facility] [address] [id number] [place] [address]- 9412 Dec, [facility] [place] [facility] [address] [id number] [place] [address]- 5353 16 Dec, 2011 [facility] [place] [facility] [address] [id number] [place] [address]- 7353 Dec, [facility] [place] [facility] [address] [id number] [place] [address] Nov, [facility] [place] [facility] [address] [id number] [place] [address]- 1642 Nov, [facility] [place] [facility] [address] [id number] [place] [address]- 4036 Nov, [facility] [place] [facility] [address] [id number] [place] [address]- 5720 Nov, [facility] [place] [facility] [address] [id number] [place] [address]- 8327 September, [facility] [place] [facility] [address] [id number] [place] [address]- 0109 September, [facility] [place] [facility] [address] [id number] [place] [address]- 0700 September, [facility] [place] [facility] [address] [id number] [place] [address]- 8925 Jul, [facility] [place] [facility] [address] [id number] [place] [address]- 6206 Jun, [facility] [place] [facility] [address] [id number] [place] [address]- 5358 Jun, [facility] [place] [facility] [address] [id number] [place] [address]- 3240 Jun, [facility] [place] [facility] [address] [id number] [place] [address]- 0598 Apr, [facility] [place] [facility] [address] [id number] [place] [address]- 8028 Mar, [facility] [place] [facility] [address] [id number] [place] [address]- 2343 Mar, [facility] [place] [facility] [address] [id number] [place] [address]- 9443 Feb, [facility] [place] [facility] [address] [id number] [place] [address]- 9316 Feb, [facility] [place] [facility] [address] [id number] [place] [address]- 9796 Feb, [facility] [address] [facility] [id number] [place] [address]- 6107 Jul, [facility] [address] [facility] [id number] [place] [address]- 8290 Feb, IMMUNIZATIONS No Known Immunizations SOCIAL HISTORY Never Assessed REASON FOR VISIT f/u PLAN OF CARE Activity Details Follow Up 6 Weeks Reason: VITAL SIGNS MEDICATIONS Unknown Medications RESULTS No Results PROCEDURES Procedure Date Ordered Result Body Site Psychotherapy, patient &/family, 30 minutes, established patient Feb 27, 2017 INSTRUCTIONS MEDICATIONS ADMINISTERED No Known Medications MEDICAL (GENERAL) HISTORY Type Description Date Medical History type II diabetes-dx'd 12/2010 Medical History dysfunctional uterine bleeding--endometrial bx 12/2010 Medical History asthma Medical History hypertension Medical History obesity Medical History anxiety Medical History autoimmune disease Surgical History x1 Hospitalization History child Hospitalization History Asthma
--- OUTSIDE RECORDS SUMMARY | 2018-02-02 23:59 | XMS REPORT ---
Author MACY Wadsworth Organization [employer] Address Unknown Phone Unavailable Care Team Providers Care Internal Corrosion Specialist Name Role Phone MACY TAMAYO CP [...] Instructions Start Date End Date Status Dosage [facility] [address]-99 10 MG Orally Once a day. Take with 5mg tablet Mar 05, 2015 1 tablet with food or milk [facility] [address]-86 5 MG Orally Once a day Mar 05, 2015 1 tablet with food or milk Folic Acid [facility] [id number] 1 MG TAKE ONE TABLET BY MOUTH DAILY ( DO NOT TAKE ON DAYS YOU TAKE METHOTREXATE) Results No Known Results Summary Purpose [employer] Submission
--- OUTSIDE RECORDS SUMMARY | 2018-02-02 23:59 | XMS REPORT ---
Author Author ROSANA CRUMP [facility] Address [address] [place] [address] Care Team Providers Care Polymerization Supervisor Name Role Phone ROSANA CRUMP Unavailable PROBLEMS Type Condition ICD9-CM Code [id number] Code Onset Dates Condition Status SNOMED Code Problem Menopause Z78.0 Active 624936530 Problem Lupus erythematosus L93.0 Active 196696966 Problem Other chronic pain G89.29 Active 73886578 Problem Anxiety F41.9 Active 59143161 Problem Diabetes type 2, controlled E11.9 Active 97781717 Problem Mood disorder F39 Active 74231589 Problem Osteoarthritis of right knee, unspecified osteoarthritis type M17.9 Active 732399142 Problem Allergic rhinitis due to pollen J30.1 Active 26204380 ALLERGIES Substance Reaction Event Type Date Status Fluarix Quadrivalent vomiting Drug Allergy Jun, Active Zoloft makes very angry Drug Allergy Jun, Active Fluarix vomiting Drug Allergy Jun, Active Aspirin rash Drug Allergy Jun, Active Latex, Natural Rubber rash Non Drug Allergy Jun, Active SOCIAL HISTORY No smoking Hx information available PLAN OF CARE Activity Details Follow Up 3 Weeks Reason:depression, anxiety (bipolar?) VITAL SIGNS MEDICATIONS Unknown Medications RESULTS No Results PROCEDURES Procedure Date Ordered Related Diagnosis Body Site Psychotherapy, patient &/family, 30 minutes, established patient Jul 20, 2015 IMMUNIZATIONS No Known Immunizations
--- OUTSIDE RECORDS SUMMARY | 2018-02-02 23:59 | XMS REPORT ---
Author Author MACY TAMAYO Organization [employer] Address Unknown Phone Unavailable Care Team Providers Care Fresh Foods Clerk Name Role Phone MACY TAMAYO CP Unavailable Allergies No Known Allergies Problems Problem Type Condition Code Onset Dates Condition Status Problem Allergic rhinitis, cause unspecified 477.9 Active Problem Diabetes with other specified manifestations, type II or unspecified type, not stated as uncontrolled 250.80 Active Problem Other specified menopausal and postmenopausal disorder 627.8 Active Problem Depressive disorder, not elsewhere classified 311 Active Problem Diabetes E11.9 Active Problem Unspecified episodic mood disorder 296.90 Active Problem Mastodynia 611.71 Active Problem Screening for malignant neoplasm of the cervix V76.2 Active Problem Edema 782.3 Active Medications No Known Medications Results No Known Results Summary Purpose [employer] Submission
--- OUTSIDE RECORDS SUMMARY | 2018-02-02 23:59 | XMS REPORT ---
Author Author MACY TAMAYO Organization [facility] Address [address] [place] [address] Care Team Providers Care System Support Developer Name Role Phone MACY TAMAYO Unavailable PROBLEMS Type Condition ICD9-CM Code FWC28-MF Code Onset Dates Condition Status SNOMED Code Problem Plantar warts B07.0 Active 37430697 Problem Lumbago with sciatica, left side M54.42 Active 695230902 Problem Plantar wart of both feet B07.0 Active [id number] Problem Morbid (severe) obesity due to excess calories E66.01 Active 111298251 Problem Dermatomyositis M33.90 Active 190351802 Problem Tachycardia with heart rate 121-140 beats per minute R00.0 Active 4912800 Problem Controlled type 2 diabetes mellitus without complication, without long -term current use of insulin E11.9 Active 185408785 Problem Enlarged thyroid gland E04.9 Active 1386343 Problem Body mass index (BMI) of 45.0-49.9 in adult Z68.42 Active 394795879 Problem Menopause Z78.0 Active 024293290 Problem Allergic rhinitis due to pollen J30.1 Active 88671183 Problem Osteoarthritis of right knee, unspecified osteoarthritis type M17.9 Active 968152241 Problem Anxiety F41.9 Active 15493939 Problem Mood disorder F39 Active 45982986 Problem Other chronic pain G89.29 Active 87205552 Problem Diabetes type 2, controlled E11.9 Active 72404173 Problem Arthritis M19.90 Active 4468824 ALLERGIES No Information ENCOUNTERS Encounter Location Date Diagnosis [facility] [address] [facility] [id number] [address] Aug, [facility] [address] [id number] [address] Aug, [facility] [address] [facility] [id number], [place] [address] Jul, Scabies B86 and BMI 45.0-49.9, adult Z68.42 [place] [id number] [place] [address] 95682- 1796 Jul, [facility] [id number] [place] [address] 26122- 8527 Jul, Mood disorder F39 and Anxiety F41.9 [place] [address] 01143- 5682 Jul, [facility] [id number] [place] [address] 36032 -8733 27 Jun, 2017 Bronchitis J40 ; Dark urine R82.99 and BMI 45.0-49.9, adult Z68.42 [place] [id number] [place] [address] 19751- 9600 14 Jun, 2017 Acute pain of right shoulder M25.511 and Acute pain of right knee M25.561 [facility] [id number] [place] [address] 93473- 9946 May, BMI 40.0-44.9, adult Z68.41 ; Controlled type 2 diabetes mellitus without complication, without long-term current use of insulin E11.9 ; Muscle cramping R25.2 ; Hot flashes R23.2 ; Mood disorder F39 ; Anxiety F41.9 and Morbid (severe) obesity due to excess calories E66.01 [place] [address] [place] [address] 52614- 8870 May, BMI 40.0-44.9, adult Z68.41 ; Controlled type 2 diabetes mellitus without complication, without long-term current use of insulin E11.9 ; Muscle cramping R25.2 and Hot flashes R23.2 [place] [id number] [place] [address] 54066- 2027 May, Tachycardia with heart rate 121-140 beats per minute R00.0 ; Morbid (severe) obesity due to excess calories E66.01 ; Diabetes type 2, controlled E11.9 and Enlarged thyroid gland E04.9 [place] [id number] [place] [address] 97680- 0137 25 May, 2017 Encounter for well woman [...] Dysuria R30.0 and Screening breast examination Z12.31 [place] [address] 13807- 6986 Apr, Mood disorder F39 ; Other chronic pain G89.29 and Anxiety F41.9 [place] [address] 37312- 5845 Apr, Lumbago with sciatica, left side M54.42 and Other chronic pain G89.29 [place] [address] 58239- 1923 Apr, Lupus erythematosus L93.0 [place] [address] 40169- 8561 Mar, Plantar wart of both feet B07.0 [place] [address] 29762- 4762 Mar, Lupus erythematosus L93.0 and Sinus drainage J34.89 [facility] [id number] [place] [address] 61095- 4290 Mar, Mood disorder F39 ; Other chronic pain G89.29 and Anxiety F41.9 [facility] [id number] [place] [address] 26740- 7779 Mar, Mood disorder F39 ; Arthritis M19.90 and Plantar warts B07.0 [place] [address] [place] [address] 4760 Feb, Lupus erythematosus L93.0 [facility] [id number] [place] [address] 14603- 5451 Feb, Other chronic pain G89.29 [facility] [id number] [place] [address] 13842- 2256 Feb, Mood disorder F39 and Anxiety F41.9 [facility] [id number] [place] [address] 30299- 3014 Jan, [facility] [id number] [place] [address] 17192- 2375 Jan, Mood disorder F39 [place] [address] 09298- 9827 Dec, Nail, ingrown L60.0 [place] [id number] [place] [address] 98698- 9462 Dec, Nail, ingrown L60.0 [place] [id number] [place] [address] 31564- 0884 Nov, Mood disorder F39 and Anxiety F41.9 [place] [id number] [place] [address] 64935- 4696 Nov, Sinus drainage J34.89 ; Hot flashes R23.2 ; Anxiety F41.9 and Diabetes type 2, controlled E11.9 [facility] [id number] [place] [address] 02565- 1716 Nov, Nail, ingrown L60.0 [facility] [id number] [place] [address] 71010- 2232 Oct, Anxiety F41.9 and Mood disorder F39 [facility] [id number] [place] [address] 51093- 6589 Oct, Nail, ingrown L60.0 and Anxiety F41.9 [facility] [address] [place] [address]- 4933 Oct, Lupus erythematosus L93.0 [facility] [id number] [place] [address] 36472- 1383 September, [facility] [id number] [place] [address] 32268- 1509 September, [facility] [id number] [place] [address] 20769- 5003 September, Lupus erythematosus L93.0 [facility] [id number] [place] [address] 76762- 2724 Aug, [facility] [id number] [place] [address] 67362- 2284 Aug, Mood disorder F39 and Anxiety F41.9 [facility] [id number] [place] [address] 54504- 0597 Aug, Lupus erythematosus L93.0 ; Diabetes type 2, controlled E11.9 and Localized edema R60.0 [facility] [id number] [place] [address] 74801- 3890 Aug, [facility] [id number] [place] [address] 39376- 2978 Jul, Anxiety F41.9 and Mood disorder F39 [facility] [id number] [place] [address] 33983- 8638 Jul, Diabetes type 2, controlled E11.9 [facility] [id number] [place] [address] 65425- 3351 Jun, Anxiety F41.9 [facility] [id number] [place] [address] 79628- 5127 May, [facility] [id number] [place] [address] 50002- 6039 May, [facility] [id number] [place] [address] 43741- 0757 May, Nausea R11.0 ; Other chronic pain G89.29 and Pain in right knee M25.561 [place] [address] 48516- 0469 May, [place] [id number] [place] [address] 69360- 3949 Apr, Tear of medial meniscus of right knee, current, unspecified tear type, subsequent encounter S83.241D and Tear of lateral meniscus of right knee, current, unspecified tear type, subsequent encounter S83.281D [facility] [id number] [place] [address] 99542- 6123 Apr, Anxiety F41.9 and Mood disorder F39 [place] [address] 97977- 2728 Apr, Anxiety F41.9 [place] [address] 68492- 4821 Apr, [place] [id number] [place] [address] 75058- 6919 Mar, [place] [address] 63420- 9771 Mar, Lupus erythematosus L93.0 and Diabetes type 2, controlled E11.9 [place] [id number] [place] [address] 06255- 8681 Mar, Mood disorder F39 [place] [id number] [place] [address] 60535- 9920 Mar, Tear of lateral meniscus of right knee, current, unspecified tear type, initial encounter S83.281A and Osteoarthritis of right knee, unspecified osteoarthritis type M17.9 [place] [id number] [place] [address] 44255- 4326 02 Mar, 2016 [place] [id number] [place] [address] 52979- 6830 Feb, Mood disorder F39 [place] [address] [address]- 3331 Feb, Rash R21 [facility] [id number] [place] [address] 78948 2546 Feb, [facility] [id number] [place] [address] 25408 2546 Jan, Other chronic pain G89.29 and Muscle spasm M62.838 [facility] [id number] [place] [address] 39054- 8979 Jan, Mood disorder F39 [facility] [id number] [place] [address] 98125- 5875 Jan, Pain in right knee M25.561 ; Other chronic pain G89.29 and Muscle spasm M62.838 [facility] [id number] [place] [address] 39344- 2210 Dec, [facility] [id number] [place] [address] 88651- 2057 Dec, [facility] [id number] [place] [address] 64596- 1454 Nov, [facility] [id number] [place] [address] 93680- 2706 Nov, Mood disorder F39 [facility] [address] [place] [address] 74960- 5056 Nov, Diabetes type 2, controlled E11.9 ; Bronchitis J40 ; Edema, unspecified type R60.9 ; Weight gain R63.5 and Right knee pain, unspecified chronicity M25.561 [facility] [id number] [place] [address] 87510- 4901 Oct, Mood disorder F39 [facility] [address] [place] [address] 57199- 3225 Oct, Lupus erythematosus L93.0 and Bilateral edema of lower extremity R60.0 [facility] [id number] [place] [address] 52622- 5513 Oct, Mood disorder F39 and Anxiety F41.9 [facility] [id number] [place] [address] 83420- 1673 September, Mood disorder F39 ; Anxiety F41.9 and Anger reaction R45.4 [place] [id number] [place] [address] 17144- 6163 September, Diabetes type 2, controlled E11.9 ; Edema, unspecified type R60.9 and Fatigue, unspecified type R53.83 [place] [id number] [place] [address] 55133- 2687 Aug, Mood disorder F39 and Generalized anxiety disorder F41.1 [place] [id number] [place] [address] 23346- 3326 Aug, Diabetes type 2, controlled E11.9 ; Sinusitis J32.9 and Mood disorder F39 [place] [id number] [place] [address] 90867- 9972 Aug, Lupus erythematosus L93.0 [place] [id number] [place] [address] 57460- 5945 14 Aug, 2015 [place] [id number] [place] [address] 34173- 9199 07 Aug, 2015 [place] [id number] [place] [address] 03730- 5088 Jul, Diabetes type 2, controlled E11.9 [facility] [id number] [place] [address] 91668- 5528 Jul, Mood disorder F39 and Depression F32.9 [facility] [id number] [place] [address] 92387- 9444 Jul, Lupus erythematosus L93.0 and Diabetes type 2, controlled E11.9 [facility] [id number] [place] [address] 00592- 7186 Jul, Mood disorder F39 and Anxiety F41.9 [facility] [address] [address]- 2416 Jul, [facility] [address] [address] 2546 Jul, [facility] [address] [address]- 4906 Jun, Mood disorder F39 and Anxiety F41.9 [facility] [address], [place] [address]- 7438 Jun, Mood disorder F39 [facility] [address] [place] [address], [place] [address]- 6726 Jun, [facility] [address], [place] [address]- 6468 Jun, [facility] [address] [address]- 0901 Jun, Mood disorder F39 [facility] [address], [place] [address]- 4887 Jun, [facility] [address] [address]- 6068 May, [facility] [address], [place] [address]- 5038 May, [facility] [address], [place] [address]- 9727 May, [facility] [address], [place] [address]- 9739 May, [facility] [address], [place] [address]- 6807 May, Anxiety F41.9 ; Dermatomyositis M33.90 and Diabetes type 2, controlled E11.9 [facility] [address], [place] [address] -5535 May, 2016 Sinusitis J32.9 and Cough R05 [facility] [id number] [place] [address] 49950- 1545 May, Mood disorder F39 [facility] [id number] [place] [address] 44254- 6445 May, Adjustment disorder with mixed anxiety and depressed mood F43.23 [facility] [address] 14159- 9927 Apr, [facility] [id number] [place] [address] 88794- 7176 Apr, [facility] [id number] [place] [address] 16139- 3432 Apr, Generalized anxiety disorder F41.1 and Mood disorder F39 [facility] [id number] [place] [address] 64780- 7750 Mar, [facility] [id number] [place] [address] 63191- 9228 Mar, [facility] [id number] [place] [address] 66404- 3641 Mar, [facility] [id number] [place] [address] 20911- 9019 Mar, Mood disorder F39 [facility] [id number] [place] [address] 13565- 7884 Feb, [facility] [id number] [place] [address] 42790- 5514 Feb, Diabetes E11.9 and Bronchitis J40 [facility] [address] 06701- 5757 Feb, [facility] [id number] [place] [address] 18572- 6720 Feb, [facility] [id number] [place] [address] 11637- 8202 Feb, Major depression, recurrent, full remission F33.42 and KELLY ( generalized anxiety disorder) F41.1 [place] [id number] [place] [address] 56138- 1771 Feb, [place] [id number] [place] [address] 96425- 9195 Feb, Single major depressive episode, in partial or unspecified remission F32.5 [place] [id number] [place] [address] 69256- 1628 Jan, Fatigue 780.[address] 81834- 4691 Jan, [place] [id number] [place] [address] 76656- 4043 Jan, Diabetes with other specified manifestations, type II or unspecified type, not stated as uncontrolled 250.80 [place] [id number] [place] [address] 18664- 2148 Jan, [place] [id number] [place] [address] 00538- 4279 Dec, Hot flashes 627.2 ; Memory loss 780.93 and Joint pain 719.40 [place] [address] [place] [address] 48442- 6650 Dec, Major depression, recurrent 296.30 ; Generalized anxiety disorder 300.02 ; Adjustment disorder with depressed mood 309.0 and No condition on Lusby II V71.09 [place] [id number] [place] [address] 43463- 2553 Dec, [address] 55294- 8961 Nov, Cognitive and neurobehavioral dysfunction 294.9 ; Major depressive disorder, recurrent episode, moderate degree 296.32 and Anxiety state , unspecified 300.00 [id number] [place] [address] 11113- 2387 Nov, [place] [address] [address]- 4796 Nov, Bronchitis 490 and Diabetes with other specified manifestations, type II or unspecified type, not stated as uncontrolled 250.80 [place] [address] [place] [address] 81819- 8395 Nov, Major depressive disorder, recurrent episode, moderate 296.32 and Anxiety disorder, unspecified 300.00 [place] [id number] [place] [address] 10722- 8449 Nov, Anxiety, generalized 300.02 ; Intermittent explosive disorder 312.34 ; No condition on Lusby II V71.09 and No condition on axis III V71.09 [place] [id number] [place] [address] 41242- 0763 Oct, Diabetes with other specified manifestations, type II or unspecified type, not stated as uncontrolled 250.80 ; Urinary tract infection, site not specified 599.0 and Bronchitis [address] [place] [address] 84472- 1916 Oct, Intermittent explosive disorder 312.34 ; Bipolar 1 disorder , depressed, moderate 296.52 ; Major depression, chronic 296.20 ; No condition on Lusby II V71.09 and No condition on axis III V71.[address] [place] [address] 26969- 9369 Oct, Major depressive disorder, recurrent episode, moderate 296.32 ; Anxiety state 300.00 ; Cognitive decline 294.9 and No condition on Lusby II V71.09 [place] [address] [address]- 0405 Oct, [place] [id number] [place] [address] 85075- 1515 Oct, Major depressive disorder, recurrent episode, moderate 296.32 ; Anxiety disorder, unspecified 300.00 and Persistent disorder of initiating or maintaining sleep 307.42 [place] [id number] [place] [address] 97219- 2645 September, Diabetes with other specified manifestations, type II or unspecified type, not stated as uncontrolled 250.80 ; Memory loss 780.93 and Cognitive complaints 799.59 [facility] [address] [address]- 8696 September, No condition on Lusby II V71.09 ; Major depression, recurrent 296.30 and Persistent mood [affective] disorder, unspecified 296.90 [facility] [id number] [place] [address] 84272- 4101 Aug, [facility] [id number] [address]- 4804 Aug, [facility] [id number] [place] [address] 08437- 1991 Aug, [facility] [id number] [address]- 3986 Jul, [facility] [id number] [place] [address] 77471- 7791 Jul, [facility] [address], [place] [address]- 5550 Jul, [facility] [id number] 6703 Jul, [facility] [address] [address]- 9376 Jul, [facility] [address], [place] [address]- 1914 Jun, [facility] [address], [place] [address]- 8406 Jun, [facility] [address], [place] [address]- 3556 Jun, [facility] [address], [place] [address]- 8256 Jun, [facility] [id number] [address]- 5018 Jun, 2014 [facility] [place] [facility] [address] [id number] [place] [address]- 2505 Jun, 2014 [facility] [place] [facility] [address] [id number] [place] [address]- 0326 Jun, 2014 [facility] [place] [facility] [address] [id number] [place] [address]- 0065 Jun, 2014 [facility] [place] [facility] [address] [id number] [place] [address]- 7232 Jun, 2014 [facility] [place] [facility] [address] [id number] [place] [address]- 1568 Jun, 2014 [facility] [place] [facility] [address] [facility] [id number] [place] [address]- 5092 Jun, 2014 [facility] [place] [facility] [address] [facility] [id number] [place] [address]- 2425 Jun, 2014 [facility] [place] [facility] [address] [facility] [id number] [place] [address]- 0966 Jun, 2014 [facility] [place] [facility] [address] [facility] [id number] [place] [address]- 3301 May, [facility] [place] [facility] [address] [facility] [id number] [place] [address] May, [facility] [place] [facility] [address] [facility] [id number] [address] Apr, [facility] [place] [facility] [address] [id number] [place] [address] Apr, [facility] [place] [facility] [address] [facility] [id number] [place] [address] Apr, [facility] [place] [facility] [address] [facility] [id number] [place] [address] Apr, [facility] [place] [facility] [address] [facility] [id number], [place] [address] Apr, [facility] [place] [facility] [address] [id number] [place] [address] Apr, [facility] [place] [facility] [address] [id number] [place] [address] Apr, [facility] [place] [facility] [address] [id number] [place] [address] Apr, [facility] [place] [facility] [address] [id number] [place] [address] Apr, [facility] [place] [facility] [address] [id number] [place] [address] Apr, [facility] [place] [facility] [address] [id number] [place] [address] Apr, [facility] [place] [facility] [address] [id number] [place] [address] Apr, [facility] [place] [facility] [address] [id number] [place] [address] Apr, [facility] [place] [facility] [address] [id number] [place] [address] Apr, [facility] [place] [facility] [address] [id number] [place] [address] Apr, [facility] [place] [facility] [address] [id number] [place] [address] Apr, [facility] [place] [facility] [address] [id number] [place] [address] Apr, [facility] [place] [facility] [address] [id number] [place] [address] Apr, [facility] [place] [facility] [address] [id number] [place] [address] Apr, [facility] [place] [facility] [address] [id number] [place] [address] Apr, [facility] [place] [facility] [address] [id number] [place] [address] 9947 Mar, [facility] [place] [facility] [address] [id number] [place] [address] 8033 Mar, [facility] [place] [facility] [address] [id number] [place] [address] 2983 Mar, [facility] [place] [facility] [address] [id number] [place] [address] 4884 Mar, [facility] [place] [facility] [address] [id number] [place] [address] 1459 Mar, [facility] [place] [facility] [address] [id number] [place] [address] 2677 Mar, [facility] [place] [facility] [address] [id number] [place] [address] 4703 Mar, [facility] [place] [facility] [address] [id number] [place] [address] 5993 Mar, [facility] [place] [facility] [address] [id number] [place] [address] 3150 Mar, [facility] [place] [facility] [address] [id number] [place] [address] 7768 Mar, [facility] [place] [facility] [address] [id number] [place] [address] 7[address] Mar, [facility] [place] [facility] [address] [id number] [place] [address] 2799 Mar, [facility] [place] [facility] [address] [id number] [place] [address] 7050 Mar, [facility] [place] [facility] [address] [id number] [place] [address] 8672 Feb, [facility] [place] [facility] [address] [id number] [place] [address] 0088 Feb, [facility] [place] [facility] [address] [id number] [place] [address]- 2471 Feb, [facility] [place] [facility] [address] [id number] [place] [address] 7924 Feb, [facility] [place] [facility] [address] [id number] [place] [address] 1683 Feb, [facility] [place] [facility] [address] [id number] [place] [address]- 7845 Feb, [facility] [place] [facility] [address] [id number] [place] [address] 9857 Feb, [facility] [place] [facility] [address] [id number] [place] [address]- 6567 Feb, [facility] [place] [facility] [address] [id number] [place] [address]- 7715 Feb, [facility] [place] [facility] [address] [id number] [place] [address]- 9190 Feb, [facility] [place] [facility] [address] [id number] [place] [address]- 9811 Feb, [facility] [place] [facility] [address] [id number] [place] [address]- 2646 Feb, [facility] [place] [facility] [address] [id number], [place] [address] 86[address] Feb, [facility] [place] [facility] [address] [id number], [place] [address] 8863 Feb, [facility] [place] [facility] [address] [id number], [place] [address] 07 Feb, 2014 [facility] [place] [facility] [address] [id number] [place] [address] 3981 10 Jan, 2014 [facility] [place] [facility] [address] [id number], [place] [address]47 08 Jan, 2014 [facility] [place] [facility] [address] [id number] [place] [address]- 1187 08 Jan, 2014 [facility] [place] [facility] [address] [id number] [place] [address]- 0161 08 Jan, 2014 [facility] [place] [facility] [address] [id number] [place] [address] Jan, [facility] [place] [facility] [address] [id number] [place] [address] 5985 Dec, [facility] [place] [facility] [address] [id number] [place] [address]- 0084 Dec, [facility] [place] [facility] [address] [id number] [place] [address]- 8729 Dec, [facility] [place] [facility] [address] [id number] [place] [address]- 1462 Dec, [facility] [place] [facility] [address] [id number] [place] [address] 8590 Nov, [facility] [place] [facility] [address] [id number] [place] [address]- 3392 Nov, [facility] [place] [facility] [address] [id number] [place] [address]- 3657 Nov, [facility] [place] [facility] [address] [id number] [place] [address]- 7164 Nov, [facility] [place] [facility] [address] [id number] [place] [address]- 7387 Nov, [facility] [place] [facility] [address] [id number] [place] [address]- 7561 Nov, [facility] [place] [facility] [address] [id number] [place] [address]- 3750 Nov, [facility] [place] [facility] [address] [id number] [place] [address]- 0014 Nov, [facility] [place] [facility] [address] [id number] [place] [address]- 8746 Nov, [facility] [place] [facility] [address] [id number] [place] [address]- 2039 Nov, [facility] [place] [facility] [address] [id number] [place] [address]- 4970 Oct, [facility] [place] [facility] [address] [id number] [place] [address]- 1252 Oct, [facility] [place] [facility] [address] [id number] [place] [address]- 8572 September, [facility] [place] [facility] [address] [id number] [place] [address]- 2294 September, [facility] [place] [facility] [address] [id number] [place] [address]- 6151 September, [facility] [place] [facility] [address] [id number] [place] [address]- 3264 September, [facility] [place] [facility] [address] [id number] [place] [address]- 3242 16 Aug, 2013 [facility] [place] [facility] [address] [id number] [place] [address]- 6566 Aug, [facility] [place] [facility] [address] [id number] [place] [address]- 2810 Aug, [facility] [place] [facility] [address] [id number] [place] [address]- 3742 24 Jul, 2013 [facility] [place] [facility] [address] [id number] [place] [address]- 7344 24 Jul, 2013 [facility] [place] [facility] [address] [id number] [place] [address]- 6750 Jul, [facility] [place] [facility] [address] [id number] [place] [address]- 3660 14 Jul, 2013 [facility] [place] [facility] [address] [id number] [place] [address]- 8149 May, [facility] [place] [facility] [address] [id number] [place] [address]- 5050 May, [facility] [place] [facility] [address] [id number] [place] [address]- 6509 May, [facility] [place] [facility] [address] [id number] [place] [address] 15 Mar, 2013 [facility] [place] [facility] [address] [id number] [place] [address]- 9836 15 Mar, 2013 [facility] [place] [facility] [address] [id number] [place] [address]- 8852 Mar, [facility] [place] [facility] [address] [id number] [place] [address]- 1636 Mar, [facility] [place] [facility] [address] [id number] [place] [address]- 8935 Feb, [facility] [place] [facility] [address] [id number] [place] [address]- 7409 Feb, [facility] [place] [facility] [address] [id number] [place] [address]- 0755 Feb, [facility] [place] [facility] [address] [id number] [place] [address]- 0326 16 Jan, 2013 [facility] [place] [facility] [address] [id number] [place] [address]- 4567 Jan, [facility] [place] [facility] [address] [id number] [place] [address]- 5513 Jan, [facility] [place] [facility] [address] [id number] [place] [address]- 1146 Dec, [facility] [place] [facility] [address] [id number], [place] [address] 4838 Dec, [facility] [place] [facility] [address] [id number] [place] [address]- 4957 Dec, [facility] [place] [facility] [address] [id number] [place] [address]- 4595 Dec, [facility] [place] [facility] [address] [id number] [place] [address]- 9712 Nov, [facility] [place] [facility] [address] [id number] [place] [address]- 4060 Oct, [facility] [address] [id number] [place] [address]- 1578 Oct, [facility] [address] [id number] [place] [address]- 5659 September, [facility] [address] [id number] [place] [address]- 8814 September, [facility] [address] [id number] [place] [address]- 4722 September, [facility] [address] [id number] [place] [address]- 1140 Aug, [facility] [address] [id number] [place] [address]- 4775 Aug, [facility] [address] [id number] [place] [address]- 1018 Aug, [facility] [address] [id number] [place] [address]- 7226 Aug, [facility] [address] [id number] [place] [address]- 8508 26 Jul, 2012 [facility] [place] [address] [id number] [place] [address]- 6521 25 Jul, 2012 [facility] [address] [id number] [place] [address]- 0730 21 Jul, 2012 [facility] [address] [id number] [place] [address]- 2124 15 Jul, 2012 [facility] [address] [id number] [place] [address]- 7627 14 Jul, 2012 [facility] [address] [id number] [place] [address]- 1007 13 Jul, 2012 [facility] [address] [id number] [place] [address]- 9587 13 Jul, 2012 [facility] [address] [id number] [place] [address]- 2157 Jun, [facility] [place] [facility] [address] [id number] [place] [address]- 5958 Jun, [facility] [place] [facility] [address] [id number] [place] [address]- 6169 Jun, [facility] [place] [facility] [address] [id number] [place] [address]- 6516 Jun, [facility] [address] [id number] [place] [address]- 7019 May, [facility] [address] [id number] [place] [address]- 2266 May, [facility] [address] [id number] [place] [address]- 6635 May, [facility] [address] [id number] [place] [address]- 6705 May, [facility] [address] [id number] [place] [address]- 2132 May, [facility] [address] [id number] [place] [address]- 9374 Apr, [facility] [place] [facility] [address] [id number] [place] [address]- 2595 Apr, [facility] [place] [facility] [address] [id number], [place] [address]- 3904 Mar, [facility] [place] [facility] [address] [id number] [place] [address]- 3047 Mar, [facility] [place] [facility] [address] [id number] [place] [address]- 7476 Mar, [facility] [place] [facility] [address] [id number] [place] [address]- 6578 Mar, [facility] [place] [facility] [address] [id number] [place] [address]- 0246 Mar, [facility] [place] [facility] [address] [id number] [place] [address]- 3049 Mar, [facility] [place] [facility] [address] [id number] [place] [address]- 4188 Mar, [facility] [place] [facility] [address] [id number] [place] [address]- 8687 Mar, [facility] [place] [facility] [address] [id number] [place] [address]- 3051 Mar, [facility] [place] [facility] [address] [id number] [place] [address]- 5706 Mar, [facility] [place] [facility] [address] [id number] [place] [address]- 7831 Feb, [facility] [place] [facility] [address] [id number] [place] [address]- 3293 Feb, [facility] [place] [facility] [address] [id number] [place] [address]- 5950 Feb, [facility] [place] [facility] [address] [id number] [place] [address]- 3129 Feb, [facility] [place] [facility] [address] [facility] [id number] [place] [address]- 7154 Feb, [facility] [place] [facility] [address] [id number] [place] [address]- 1950 Feb, [facility] [place] [facility] [address] [id number] [place] [address]- 4566 Feb, [facility] [place] [facility] [address] [id number] [place] [address]- 3804 Jan, [facility] [place] [facility] [address] [id number] [place] [address]- 3150 Jan, [facility] [place] [facility] [address] [facility] [id number] [place] [address]- 9901 Dec, [facility] [place] [facility] [address] [id number] [place] [address]- 2937 Dec, [facility] [place] [facility] [address] [id number] [place] [address]- 0122 Dec, [facility] [place] [facility] [address] [id number] [place] [address]- 9634 Dec, [facility] [place] [facility] [address] [id number] [place] [address]- 4565 Dec, [facility] [place] [facility] [address] [id number] [place] [address]- 0311 Dec, [facility] [place] [facility] [address] [id number] [place] [address]- 1050 Nov, [facility] [place] [facility] [address] [id number] [place] [address]- 2279 Nov, [facility] [place] [facility] [address] [id number] [place] [address]- 1259 Nov, [facility] [place] [facility] [address] [id number] [place] [address]- 5534 Nov, [facility] [place] [facility] [address] [id number] [place] [address]- 8941 September, [facility] [place] [facility] [address] [id number] [place] [address]- 6337 September, [facility] [place] [facility] [address] [id number] [place] [address]- 4980 September, [facility] [place] [facility] [address] [id number] [place] [address]- 4801 Jul, [facility] [place] [facility] [address] [id number] [place] [address]- 2284 Jun, [facility] [place] [facility] [address] [id number] [place] [address]- 5287 Jun, [facility] [place] [facility] [address] [id number], [place] [address]- 2546 13 Jun, 2011 [facility] [id number], [place] [address]- 9[address] Apr, [facility] [id number], [place] [address]- 3246 Mar, [facility] [id number], [place] [address]- 4756 Mar, [facility] [id number], [place] [address]- 2537 Feb, [facility] [id number], [place] [address]- 4528 Feb, [facility] [id number], [place] [address]- 9086 Feb, [facility] [id number], [place] [address]- 2795 Jul, [facility] [id number], [place] [address]- 7242 Feb, IMMUNIZATIONS No Known Immunizations SOCIAL HISTORY [...]
--- OUTSIDE RECORDS SUMMARY | 2018-02-02 23:59 | XMS REPORT ---
Author KATHY Caldwell [facility] eClinical[employer] Address Unknown Phone Unavailable Care Team Providers Care Senior Test Engineer Name Role Phone KATHY KAUFMAN Unavailable Allergies No Known Allergies Problems Problem Type Condition Code Onset Dates Condition Status Problem Diabetes type 2, controlled E11.9 Active Problem Allergic rhinitis due to pollen J30.1 Active Problem Lupus erythematosus L93.0 Active Assessment Mood disorder F39 Active Problem Mood disorder F39 Active Problem Menopause Z78.0 Active Medications Medication Code System Code Instructions Start Date End Date Status Dosage Xanax [facility] [address]-22 2 MG Orally Twice a day as needed for anxiety. Must last 30 days May 13, 2015 0.5-1 tablet Methotrexate [facility] [address]-52 2.5 MG Orally 1 time per week 6 Diflucan [facility] [address]-89 150 MG Orally Mar 23, 2015 1 tablet Furosemide [facility] [address]-38 40 mg Jan 17, 2012 1 tablet by Oral route 2 times per day for 5 days Potassium Chloride Marie ER [facility] 73734313218 10 MEQ TAKE TWO TABLETS BY MOUTH ONCE DAILY Victoza [facility] [address]-53 0.6 mg/0.1 mL (18 mg/3 mL) Jan 13, 2012 inject 0.3 milliliter (1.8 mg) by subcutaneous route once daily Omeprazole [facility] 32879517031 20 MG Orally Once a day 1 capsule Folic Acid [facility] 80097854465 1 MG TAKE ONE TABLET BY MOUTH DAILY ( DO NOT TAKE ON DAYS YOU TAKE METHOTREXATE) Ativan [facility] [address]-02 1 MG Twice a day PRN for anxiety July 30, 2014 1 tablet by Oral route 2 times per day PRN anxiety Loratadine [facility] 36093637520 10 MG TAKE ONE TABLET BY MOUTH DAILY Diclofenac Sodium [facility] [address]-16 50 MG Orally Twice a day October 08, 2014 1 tablet Lisinopril-Hydrochlorothiazide [facility] 58744382494 20-25 MG Orally Once a day 1 tablet PredniSONE [facility] [address]-24 5 MG Orally Once a day Apr 08, 2015 1 tablet with food or milk ProAir HFA [facility] [address]-79 90 mcg/actuation Mar 19, 2014 2 puffs by Inhalation route 4 times per day Procedures Procedure Coding System Code Date Office Visit, Est Pt., Level 4 CPT-4 56182 Jun 04, 2015 Vital Signs Date/Time: Jun 04, 2015 Cardiac Monitoring Heart Rate 80 bpm Weight 238 lbs Height 62 in BMI 43.53 Index Blood Pressure Diastolic 74 mmHg Blood Pressure Systolic 138 mmHg Results No Known Results Summary Purpose eClinicalWorks Submission
--- OUTSIDE RECORDS SUMMARY | 2018-02-02 23:59 | XMS REPORT ---
Author Author MACY TAMAYO Organization [facility] Address [address] [place] [address] Care Team Providers Care Certified Physical Therapist Assistant Name Role Phone MACY TAMAYO Unavailable PROBLEMS Type Condition ICD9-CM Code TOZ76-NA Code Onset Dates Condition Status SNOMED Code Problem Menopause Z78.0 Active 360518803 Problem Lupus erythematosus L93.0 Active 766098563 Problem Other chronic pain G89.29 Active 62884001 Problem Anxiety F41.9 Active 08451353 Problem Diabetes type 2, controlled E11.9 Active 81346081 Problem Mood disorder F39 Active 93327268 Problem Osteoarthritis of right knee, unspecified osteoarthritis type M17.9 Active 285025314 Problem Allergic rhinitis due to pollen J30.1 Active 87818639 ALLERGIES Substance Reaction Event Type Date Status Fluarix Quadrivalent vomiting Drug Allergy Jul, Active Zoloft makes very angry Drug Allergy Jul, Active Fluarix vomiting Drug Allergy Jul, Active Aspirin rash Drug Allergy Jul, Active Latex, Natural Rubber rash Non Drug Allergy Jul, Active SOCIAL HISTORY Never Assessed PLAN OF CARE Activity Details Follow Up 3 Months Reason:dm2 3 mo. checkup VITAL SIGNS Height 62 in 2016-08-05 Weight 238 lbs 2016-08-05 Temperature 97.7 degrees Fahrenheit 2016-08-05 Heart Rate 98 bpm 2016-08-05 Respiratory Rate 18 2016-08-05 BMI 43.53 kg/m2 2016-08-05 Blood pressure systolic 122 mmHg 2016-08-05 Blood pressure diastolic 74 mmHg 2016-08-05 MEDICATIONS Medication Instructions Dosage Frequency Start Date End Date Duration Status Actos 30 MG Orally Once a day 1 tablet 24h Jul, 30 Active BD U/F Mini Pen Needle 31G X 5 MM SQ Once a day as directed 24h Jul, Active Glucocard Expression Monitor w/Device as directed Nov, Active Potassium Chloride Marie ER 20 MEQ Orally Once a day 1 tablet with food 24h Active PredniSONE 20 MG Orally Once a day 1 tablet 24h May, 30 Active Loratadine 10 mg Orally Once a day TAKE ONE TABLET BY MOUTH DAILY 24h 30 Active Folic Acid 1 MG 1 tablet 30 Active Tessalon Perles 200 mg Orally Three times a day prn cough 1 capsule as needed May, Active Victoza 0.6 mg/0.1 mL (18 mg/3 mL) inject 0.3 milliliter (1.8 mg) by subcutaneous route once daily Dec, Active Lisinopril-Hydrochlorothiazide 20-25 MG Orally Once a day 1 tablet 24h 30 Active Acidophilus 100 MG Orally Once a day 1 capsule 24h May, Active Glucocard Expression Test - as directed 24h Nov, Active Spironolactone 25 MG Orally Once a day 1 tablet 24h Active Methotrexate 2.5 MG Orally 1 time per week 6 28 Active Lasix 20 mg Orally Once a day 1 tablet 24h Nov, 30 day(s) Active Proventil HFA 108 (90 Base) MCG/ACT 2 puffs as needed 6h Active Xanax 2 MG Orally Twice a day 1 tablet 12h Apr, Active Nyamyc [id number] UNIT/GM APPLY TO AFFECTED AREA 12h 5 Active Omeprazole 20 mg Orally Once a day 1 capsule 24h 30 Active Triamcinolone Acetonide 0.1 % Externally Twice a day 1 application to affected area 12h May, Active RESULTS Name Result Date Reference Range A1C (IN HOUSE) 2016-08-05 A1C IN HOUSE 6.3 4.3 - 5.6 % Previous A1c 7.4 Lot [id number] Exp date 05/2018 PROCEDURES Procedure Date Ordered Result Body Site GLYCATED HEMOGLOBIN TEST August 05, 2016 IMMUNIZATIONS No Known Immunizations MEDICAL (GENERAL) HISTORY Type Description Date Medical History type II diabetes-dx'd 12/2010 Medical History dysfunctional uterine bleeding--endometrial bx 12/2010 Medical History asthma Medical History hypertension Medical History obesity Medical History anxiety Medical History autoimmune disease Surgical History x1 Hospitalization History child Hospitalization History Asthma
--- OUTSIDE RECORDS SUMMARY | 2018-02-03 | XMS REPORT ---
Author Author MACY TAMAYO Organization [employer] Address Unknown Phone Unavailable Care Team Providers Care Livestock Showman Name Role Phone MACY TAMAYO CP Unavailable [...] Instructions Start Date End Date Status Dosage ProAir HFA [facility] [address]-87 90 mcg/actuation Mar 19, 2014 2 puffs by Inhalation route 4 times per day Potassium Chloride [facility] [address]-52 10 MEQ TAKE TWO TABLETS BY MOUTH ONCE DAILY Results No Known Results Summary Purpose [employer] Submission
--- OUTSIDE RECORDS SUMMARY | 2018-02-03 | XMS REPORT ---
Author Author ROSANA CRUMP [facility] e[employer] Address Unknown Phone Unavailable Care Team Providers Care Bread Icer Name Role Phone ROSANA CRUMP CP Unavailable Allergies, Adverse Reactions, Alerts Substance Reaction Event Type Fluarix Quadrivalent vomiting Drug Allergy Zoloft makes very angry Drug Allergy Fluarix vomiting Drug Allergy Aspirin rash Drug Allergy Latex, Natural Rubber rash Non Drug Allergy Problems Problem Type Condition Code Onset Dates Condition Status Problem Lupus erythematosus L93.0 Active Problem Diabetes type 2, controlled E11.9 Active Problem Osteoarthritis of right knee, unspecified osteoarthritis type M17.9 Active Problem Menopause Z78.0 Active Assessment Mood disorder F39 Active Problem Allergic rhinitis due to pollen J30.1 Active Problem Mood disorder F39 Active Medications No Known Medications Procedures Procedure Coding System Code Date Psychotherapy, patient &/family, 30 minutes, established patient CPT-4 74852 Apr 08, 2016 Results No Known Results Summary Purpose [employer] Submission
--- OUTSIDE RECORDS SUMMARY | 2018-02-03 | XMS REPORT ---
Author MACY Wadsworth Organization [employer] Address Unknown Phone Unavailable Care Team Providers Care Lease Attendant Name Role Phone MACY TAMAYO CP Unavailable Allergies No Known Allergies Problems Problem Type Condition Code Onset Dates Condition Status Problem Diabetes type 2, controlled E11.9 Active Problem Allergic rhinitis due to pollen J30.1 Active Problem Lupus erythematosus L93.0 Active Problem Mood disorder F39 Active Problem Menopause Z78.0 Active Medications Medication Code System Code Instructions Start Date End Date Status Dosage PredniSONE [facility] [address]-23 5 MG Orally Once a day Apr 08, 2015 1 tablet with food or milk Results No Known Results Summary Purpose [employer] Submission
--- OUTSIDE RECORDS SUMMARY | 2018-02-03 | XMS REPORT ---
Author Author ROSANA CRUMP [facility] [employer] Address Unknown Phone Unavailable Care Team Providers Care Ambulatory Nurse Name Role Phone ROSANA CRUMP CP Unavailable Allergies No Known Allergies Problems [...] patient &/family, 30 minutes, established patient CPT-4 04778 December 21, 2015 Results No Known Results Summary Purpose [employer]ClinicalWorks Submission
--- OUTSIDE RECORDS SUMMARY | 2018-02-03 | XMS REPORT ---
Author Author ROSANA CRUMP [facility] eClinicalWorks Address Unknown Phone Unavailable Care Team Providers Care Furniture Stainer Name Role Phone ROSANA CRUMP CP Unavailable Allergies, Adverse Reactions, Alerts Substance Reaction Event Type Fluarix Quadrivalent vomiting Drug Allergy Zoloft makes very angry Drug Allergy Fluarix vomiting Drug Allergy Aspirin rash Drug Allergy Latex, Natural Rubber rash Non Drug Allergy Problems Problem Type Condition ICD-9 Code Onset Dates Condition Status Assessment Generalized anxiety disorder 300.02 Active Problem Diabetes with other specified manifestations, type II or unspecified type, not stated as uncontrolled 250.80 Active Assessment Major depression, recurrent 296.30 Active Assessment No condition on [place] II V71.09 Active Assessment Adjustment disorder with depressed mood 309.0 Active Problem Depressive disorder, not elsewhere classified [...] patient &/family, 45 minutes, established patient CPT-4 42430 Jan 14, 2015 Results No Known Results Summary Purpose eClinicalWorks Submission
--- OUTSIDE RECORDS SUMMARY | 2018-02-03 | XMS REPORT ---
Author Author MACY TAMAYO [facility] Address [address] [place] [address] Care Team Providers Care Powertrain Control Systems Engineer Name Role Phone MACY TAMAYO Unavailable PROBLEMS Type Condition ICD9-CM Code QZH59-BY Code Onset Dates Condition Status SNOMED Code Problem Menopause Z78.0 Active 683829261 Problem Lupus erythematosus L93.0 Active 195781395 Problem Other chronic pain G89.29 Active 45274688 Problem Anxiety F41.9 Active 72984403 Problem Diabetes type 2, controlled E11.9 Active 61735144 Problem Mood disorder F39 Active 98174330 Problem Osteoarthritis of right knee, unspecified osteoarthritis type M17.9 Active 595536134 Problem Allergic rhinitis due to pollen J30.1 Active 43900212 ALLERGIES No Information SOCIAL HISTORY Never Assessed PLAN OF CARE VITAL SIGNS MEDICATIONS Unknown [...]
--- OUTSIDE RECORDS SUMMARY | 2018-02-03 | XMS REPORT ---
Author MACY Wadsworth Organization eClinicalWorks Address Unknown Phone Unavailable Care Team Providers Care Cable Mechanic Name Role Phone MACY TAMAYO CP Unavailable Allergies, Adverse Reactions, Alerts Substance Reaction Event Type Fluarix Quadrivalent vomiting Drug Allergy Zoloft makes very angry Drug Allergy Fluarix vomiting Drug Allergy Aspirin rash Drug Allergy Latex, Natural Rubber rash Non Drug Allergy Problems Problem Type Condition Code Onset Dates Condition Status Assessment Right knee pain, unspecified chronicity M25.561 Active Assessment Edema, unspecified type R60.9 Active Assessment Weight gain R63.5 Active Problem Diabetes type 2, controlled E11.9 Active Problem Allergic rhinitis due to pollen J30.1 Active Problem Lupus erythematosus L93.0 Active Assessment Diabetes type 2, controlled E11.9 Active Assessment Bronchitis J40 Active Problem Mood disorder F39 Active Problem Menopause Z78.0 Active Medications Medication Code System Code Instructions Start Date End Date Status Dosage Spironolactone [facility] 19563003447 25 MG Orally Once a day 1 tablet Glucocard Expression Test [facility] 8317-080479 - once a day December 21, 2015 as directed Glucocard Expression Monitor [facility] 8317-344288 w/Device December 21, 2015 as directed [facility] [address]-99 368223 UNIT/GM Twice a day APPLY TO AFFECTED AREA PredniSONE [facility] [address]-76 20 MG Orally Once a day Jun 17, 2015 1 tablet Doxepin HCl [facility] [address]-42 50 MG Orally daily 0.5 tab in am and 1-1.5 tablet at bedtime Methotrexate [facility] 69911466409 2.5 MG Orally 1 time per week 6 Potassium Chloride Marie ER [facility] 38459693681 10 MEQ TAKE TWO TABLETS BY MOUTH ONCE DAILY Loratadine [facility] 95687720395 10 MG TAKE ONE TABLET BY MOUTH DAILY Tessalon Perles [facility] [address]-97 200 mg Orally Three times a day prn cough Jun 04, 2015 1 capsule as needed Omeprazole [facility] 75324433751 20 MG Orally Once a day 1 capsule Proventil HFA [facility] 94529562489 108 (90 Base) MCG/ACT INHALE TWO PUFFS BY MOUTH FOUR TIMES DAILY Lasix [facility] [address]-50 20 mg Orally Once a day December 21, 2015 1 tablet Lisinopril-Hydrochlorothiazide [facility] 60204467803 20-25 MG Orally Once a day 1 tablet BD U/F Mini Pen Needle [facility] 8290-774171 31G X 5 MM SQ Once a day August 03, 2015 as directed ProAir HFA [facility] [address]-92 90 mcg/actuation Mar 19, 2014 2 puffs by Inhalation route 4 times per day Actos [facility] [address]-07 30 MG Orally Once a day August 17, 2015 1 tablet Folic Acid [facility] 21344363502 1 MG TAKE ONE TABLET BY MOUTH DAILY ( DO NOT TAKE ON DAYS YOU TAKE METHOTREXATE) Victoza [facility] [address]-63 0.6 mg/0.1 mL (18 mg/3 mL) Jan 13, 2012 inject 0.3 milliliter (1.8 mg) by subcutaneous route once daily Procedures Procedure Coding System Code Date Office Visit, Est Pt., Level 3 CPT-4 77369 December 21, 2015 X-RAY EXAM OF KNEE, 1 OR 2 CPT-4 86452 December 21, 2015 GLYCATED HEMOGLOBIN TEST CPT-4 94391 December 21, 2015 Vital Signs Date/Time: December 21, 2015 Cardiac Monitoring Heart Rate 100 bpm Weight 250 lbs Height 62 in Blood Pressure Diastolic 85 mmHg Blood Pressure Systolic 144 mmHg Results No Known Results Summary Purpose eClinicalWorks Submission
--- OUTSIDE RECORDS SUMMARY | 2018-02-03 | XMS REPORT ---
Author MARY Puga [facility] eClinicalWorks Address Unknown Phone Unavailable Care Team Providers Care Social Services Coordinator Name Role Phone MARY OHARA Unavailable Allergies, Adverse Reactions, Alerts Substance Reaction [...] Active Problem Lupus erythematosus L93.0 Active Assessment Sinusitis J32.9 Active Assessment Cough R05 Active Problem Mood disorder F39 Active Problem Menopause Z78.0 Active Medications Medication Code System Code Instructions Start Date End Date Status Dosage Tylenol Cold [facility] [address]-34 30-2-15-325 MG Orally every 6 hrs 2 tablets as needed Omeprazole [facility] 96098542911 20 MG Orally Once a day 1 capsule Loratadine [facility] 75606260975 10 MG TAKE ONE TABLET BY MOUTH DAILY Doxycycline Hyclate [facility] [address]-71 100 MG Orally every 12 hrs Jun 04, 2015 Jun 14, 2015 1 capsule Diflucan [facility] [address]-12 150 MG Orally Mar 23, 2015 1 tablet Victoza [facility] [address]-73 0.6 mg/0.1 mL (18 mg/3 mL) Jan 13, 2012 inject 0.3 milliliter (1.8 mg) by subcutaneous route once daily Potassium Chloride Marie ER [facility] 44535688415 10 MEQ TAKE TWO TABLETS BY MOUTH ONCE DAILY Folic Acid [facility] 42325511076 1 MG TAKE ONE TABLET BY MOUTH DAILY ( DO NOT TAKE ON DAYS YOU TAKE METHOTREXATE) Xanax [facility] [address]-60 2 MG Orally Twice a day as needed for anxiety. Must last 30 days May 13, 2015 0.5-1 tablet PredniSONE [facility] [address]-90 5 MG Orally Once a day Apr 08, 2015 1 tablet with food or milk Methotrexate [facility] [address]-81 2.5 MG Orally 1 time per week 6 ProAir HFA [facility] [address]-12 90 mcg/actuation Mar 19, 2014 2 puffs by Inhalation route 4 times per day Lisinopril-Hydrochlorothiazide [facility] 44334205146 20-25 MG Orally Once a day 1 tablet Tessalon Perles [facility] [address]-32 200 mg Orally Three times a day prn cough Jun 04, 2015 1 capsule as needed Diclofenac Sodium [facility] [address]-47 50 MG Orally Twice a day October 08, 2014 1 tablet Furosemide [facility] [address]-99 40 mg Jan 17, 2012 1 tablet by Oral route 2 times per day for 5 days Ativan [facility] [address]-93 1 MG Twice a day PRN for anxiety July 30, 2014 1 tablet by Oral route 2 times per day PRN anxiety Procedures Procedure Coding System Code Date Office Visit, Est Pt., Level 3 CPT-4 93919 Jun 04, 2015 Vital Signs Date/Time: Jun 04, 2015 Temperature 97.8 F Weight 238 lbs Height 62 in BMI 43.53 Index Blood Pressure Diastolic 76 mmHg Blood Pressure Systolic 138 mmHg Cardiac Monitoring Heart Rate 76 bpm Results No Known Results Summary Purpose eClinicalWorks Submission
--- OUTSIDE RECORDS SUMMARY | 2018-02-03 | XMS REPORT ---
Author MACY Wadsworth Organization eClinicalWorks Address Unknown Phone Unavailable Care Team Providers Care Bin Tripper Operator Name Role Phone MACY TAMAYO CP Unavailable Allergies No Known Allergies Problems Problem Type Condition Code Onset Dates Condition Status Problem Diabetes type 2, controlled E11.9 Active Problem Allergic rhinitis due to pollen J30.1 Active Problem Lupus erythematosus L93.0 Active Problem Mood disorder F39 Active Problem Menopause Z78.0 Active Medications Medication Code System Code Instructions Start Date End Date Status Dosage PredniSONE [facility] [address]-82 20 MG Orally Once a day Jun 17, 2015 1 tablet Results No Known Results Summary Purpose eClinicalWorks Submission
--- OUTSIDE RECORDS SUMMARY | 2018-02-03 00:01 | XMS REPORT ---
Author MACY Wadsworth Organization eClinicalWorks Address Unknown Phone Unavailable Care Team Providers Care Mechanist Name Role Phone MACY TAMAYO CP Unavailable Allergies No Known Allergies Problems Problem Type Condition Code Onset Dates Condition Status Problem Diabetes type 2, controlled E11.9 Active Problem Allergic rhinitis due to pollen J30.1 Active Problem Lupus erythematosus L93.0 Active Problem Mood disorder F39 Active Problem Menopause Z78.0 Active Medications Medication Code System Code Instructions Start Date End Date Status Dosage BD U/F Mini Pen Needle [facility] 8290-372452 31G X 5 MM SQ Once a day August 03, 2015 as directed Victoza [facility] [address]-91 0.6 mg/0.1 mL (18 mg/3 mL) Jan 13, 2012 inject 0.3 milliliter (1.8 mg) by subcutaneous route once daily Results No Known Results Summary Purpose eClinicalWorks Submission
--- OUTSIDE RECORDS SUMMARY | 2018-02-03 00:01 | XMS REPORT ---
Author MACY Wadsworth [facility] eClinicalWorks Address Unknown Phone Unavailable Care Team Providers Care Script Supervisor Name Role Phone MACY TAMAYO CP Unavailable Allergies, Adverse Reactions, Alerts Substance Reaction Event Type Fluarix Quadrivalent vomiting Drug Allergy Zoloft makes very angry Drug Allergy Fluarix vomiting Drug Allergy Aspirin rash Drug Allergy Latex, Natural Rubber rash Non Drug Allergy Problems Problem Type Condition Code Onset Dates Condition Status Assessment Mood disorder F39 Active Problem Diabetes type 2, controlled E11.9 Active Problem Allergic rhinitis due to pollen J30.1 Active Problem Lupus erythematosus L93.0 Active Assessment Diabetes type 2, controlled E11.9 Active Assessment Sinusitis J32.9 Active Problem Mood disorder F39 Active Problem Menopause Z78.0 Active Medications Medication Code System Code Instructions Start Date End Date Status Dosage [facility] [address]-09 352017 UNIT/GM Twice a day APPLY TO AFFECTED AREA Victoza [facility] [address]-66 0.6 mg/0.1 mL (18 mg/3 mL) Jan 13, 2012 inject 0.3 milliliter (1.8 mg) by subcutaneous route once daily Proventil HFA [facility] 44519174819 108 (90 Base) MCG/ACT INHALE TWO PUFFS BY MOUTH FOUR TIMES DAILY PredniSONE [facility] [address]-47 20 MG Orally Once a day Jun 17, 2015 1 tablet Folic Acid [facility] 31459577376 1 MG TAKE ONE TABLET BY MOUTH DAILY ( DO NOT TAKE ON DAYS YOU TAKE METHOTREXATE) Tessalon Perles [facility] [address]-09 200 mg Orally Three times a day prn cough Jun 04, 2015 1 capsule as needed Loratadine [facility] 21560375820 10 MG TAKE ONE TABLET BY MOUTH DAILY BD U/F Mini Pen Needle [facility] 8290-908591 31G X 5 MM SQ Once a day August 03, 2015 as directed Spironolactone [facility] [address]-13 25 MG Orally Once a day September 17, 2015 November 16, 2015 1 tablet ProAir HFA [facility] [address]-55 90 mcg/actuation Mar 19, 2014 2 puffs by Inhalation route 4 times per day Doxepin HCl [facility] [address]-73 50 MG Orally 2 times a day 1 capsule Diclofenac Sodium [facility] 65298326913 50 MG Orally Twice a day 1 tablet Methotrexate [facility] 92839206613 2.5 MG Orally 1 time per week 6 Phu Contour Test ND 0 ... In Vitro August 21, 2015 test blood sugar Ativan [facility] [address]-08 1 MG Twice a day PRN for anxiety July 30, 2014 1 tablet by Oral route 2 times per day PRN anxiety Actos [facility] [address]-25 30 MG Orally Once a day August 17, 2015 1 tablet Potassium Chloride Marie ER [facility] 84629724070 10 MEQ TAKE TWO TABLETS BY MOUTH ONCE DAILY Lisinopril-Hydrochlorothiazide [facility] 17888219689 20-25 MG Orally Once a day 1 tablet Omeprazole [facility] 30211527682 20 MG Orally Once a day 1 capsule Procedures Procedure Coding System Code Date Office Visit, Est Pt., Level 3 CPT-4 69760 September 17, 2015 GLYCATED HEMOGLOBIN TEST CPT-4 09660 September 17, 2015 Vital Signs Date/Time: September 17, 2015 Temperature 97.8 F Weight 239.8 lbs Height 62 in BMI 43.86 Index Blood Pressure Diastolic 84 mmHg Blood Pressure Systolic 122 mmHg Cardiac Monitoring Heart Rate 100 bpm Results Name Result Date Reference Range Unit Abnormality Flag A1C (IN HOUSE) ----A1C IN HOUSE 10.2 [id number] 4.3 - 5.6 % ----Previous A1c 7.8 [id number] ----Lot [id number] ----Exp date [id number] Summary Purpose eClinicalWorks Submission
--- OUTSIDE RECORDS SUMMARY | 2018-02-03 00:01 | XMS REPORT ---
Author Author MACY TAMAYO Organization [facility] Address [address] [place] [address] Care Team Providers Care Change Release Manager Name Role Phone MACY TMAAYO Unavailable PROBLEMS Type Condition ICD9-CM Code BNE40-LB Code Onset Dates Condition Status SNOMED Code Problem Plantar warts B07.0 Active 44707587 Problem Lumbago with sciatica, left side M54.42 Active 790473533 Problem Plantar wart of both feet B07.0 Active [id number] Problem Morbid (severe) obesity due to excess calories E66.01 Active 958537236 Problem Dermatomyositis M33.90 Active 459179500 Problem Tachycardia with heart rate 121-140 beats per minute R00.0 Active 7382737 Problem Controlled type 2 diabetes mellitus without complication, without long -term current use of insulin E11.9 Active 838217195 Problem Enlarged thyroid gland E04.9 Active 0068101 Problem Body mass index (BMI) of 45.0-49.9 in adult Z68.42 Active 487201328 Problem Menopause Z78.0 Active 348414456 Problem Allergic rhinitis due to pollen J30.1 Active 94346749 Problem Osteoarthritis of right knee, unspecified osteoarthritis type M17.9 Active 143157666 Problem Anxiety F41.9 Active 73575030 Problem Mood disorder F39 Active 33785799 Problem Other chronic pain G89.29 Active 36984923 Problem Diabetes type 2, controlled E11.9 Active 32079462 Problem Arthritis M19.90 Active 6473886 ALLERGIES Substance Reaction Event Type Date Status Fluarix Quadrivalent vomiting Drug Allergy Nov, Active Zoloft makes very angry Drug Allergy Nov, Active Fluarix vomiting Drug Allergy Nov, Active Aspirin rash Drug Allergy Nov, Active Latex, Natural Rubber rash Non Drug Allergy Nov, Active ENCOUNTERS Encounter Location Date Diagnosis [facility] [address] [facility] [id number] [address] Aug, [place] [address] [place] [id number] [place] [address] 97148- 7745 Aug, [place] [address] [id number] [place] [address] 54567- 9990 Jul, [facility] [place] [id number] [place] [address] 31059 -5620 Jul, Scabies B86 and BMI 45.0-49.9, adult Z68.42 [place] [address] 71763- 8012 Jul, [place] [address] 42384- 5311 Jul, Mood disorder F39 and Anxiety F41.9 [place] [address] 92061- 7336 Jul, [facility] [address] [address] 27 Jun, 2017 Bronchitis J40 ; Dark urine R82.99 and BMI 45.0-49.9, adult Z68.42 [place] [address] 34383- 2780 14 Jun, 2017 Acute pain of right shoulder M25.511 and Acute pain of right knee M25.561 [place] [address] 49626- 6441 May, BMI 40.0-44.9, adult Z68.41 ; Controlled type 2 diabetes mellitus without complication, without long-term current use of insulin E11.9 ; Muscle cramping R25.2 ; Hot flashes R23.2 ; Mood disorder F39 ; Anxiety F41.9 and Morbid (severe) obesity due to excess calories E66.01 [place] [address] [address] [id number] [place] [address] 44344- 0018 May, BMI 40.0-44.9, adult Z68.41 ; Controlled type 2 diabetes mellitus without complication, without long-term current use of insulin E11.9 ; Muscle cramping R25.2 and Hot flashes R23.2 [place] [address] [address] [id number] [place] [address] 02933- 7269 May, Tachycardia with heart rate 121-140 beats per minute R00.0 ; Morbid (severe) obesity due to excess calories E66.01 ; Diabetes type 2, controlled E11.9 and Enlarged thyroid gland E04.9 [place] [address] [id number] [place] [address] 66296- 7794 May, Encounter for well woman exam with [...] Dysuria R30.0 and Screening breast examination Z12.[address] 6[address]23- 4071 Apr, Mood disorder F39 ; Other chronic pain G89.29 and Anxiety F41.[address] 18580- 9809 Apr, Lumbago with sciatica, left side M54.42 and Other chronic pain G89.29 [place] [address] [address] [id number] [place] [address] 70044- 4391 Apr, Lupus erythematosus L93.[address] 72755- 9349 Mar, Plantar wart of both feet B07.[address] 54477- 6709 Mar, Lupus erythematosus L93.0 and Sinus drainage J34.[address] 80053- 2029 Mar, Mood disorder F39 ; Other chronic pain G89.29 and Anxiety F41.9 [facility] [address] 43945- 5693 Mar, Mood disorder F39 ; Arthritis M19.90 and Plantar warts B07.0 [facility] [address] 71775- 5818 Feb, Lupus erythematosus L93.0 [facility] [address] 72502- 2352 Feb, Other chronic pain G89.29 [place] [address] 78389- 9630 Feb, Mood disorder F39 and Anxiety F41.9 [place] [address] 73974- 6154 Jan, [facility] [address] 09469- 7872 Jan, Mood disorder F39 [place] [address] 12889- 4037 Dec, Nail, ingrown L60.0 [facility] [address] 54527- 9280 Dec, Nail, ingrown L60.0 [facility] [address] 32813- 6347 Nov, Mood disorder F39 and Anxiety F41.9 [facility] [address] [address] [id number] [place] [address] 78442- 0784 Nov, Sinus drainage J34.89 ; Hot flashes R23.2 ; Anxiety F41.9 and Diabetes type 2, controlled E11.9 [facility] [id number] [place] [address] 21391- 8802 Nov, Nail, ingrown L60.0 [facility] [id number] [place] [address] 19658- 8676 09 Oct, 2016 Anxiety F41.9 and Mood disorder F39 [facility] [address] [id number] [place] [address] 95916- 9060 Oct, Nail, ingrown L60.0 and Anxiety F41.9 [facility] [id number] [place] [address] 60505- 7174 Oct, Lupus erythematosus L93.0 [facility] [address] [id number] [place] [address] 00836- 0245 September, [facility] [id number] [place] [address] 21424- 7436 September, [facility] [address] [id number] [place] [address] 25194- 8845 September, Lupus erythematosus L93.0 [facility] [address] [address] [id number] [place] [address] 39753- 0600 Aug, [facility] [id number] [place] [address] 55536- 8301 Aug, Mood disorder F39 and Anxiety F41.9 [facility] [address] [address] [id number] [place] [address] 26613- 3069 Aug, Lupus erythematosus L93.0 ; Diabetes type 2, controlled E11.9 and Localized edema R60.0 [facility] [address] [address] [id number] [place] [address] 93348- 1746 Aug, [facility] [address] [id number] [place] [address] 87803- 7579 Jul, Anxiety F41.9 and Mood disorder F39 [facility] [address] [place] [address] [id number] [place] [address] 99283- 4682 Jul, Diabetes type 2, controlled E11.9 [facility] [address] [place] [address] 24241- 3093 Jun, Anxiety F41.9 [facility] [address] [place] [address] 58264- 6893 May, [facility] [address] [place] [id number] [place] [address] 44562- 5495 May, [place] [address] [address] [id number] [place] [address] 41301- 8712 May, Nausea R11.0 ; Other chronic pain G89.29 and Pain in right knee M25.561 [place] [address] [address] [id number] [place] [address] 84949- 4253 May, [place] [address] 97042- 7165 Apr, Tear of medial meniscus of right knee, current, unspecified tear type, subsequent encounter S83.241D and Tear of lateral meniscus of right knee, current, unspecified tear type, subsequent encounter S83.281D [place] [address] 84353- 9642 Apr, Anxiety F41.9 and Mood disorder F39 [place] [address] 44674- 5085 Apr, Anxiety F41.9 [place] [address] [place] [address] [id number] [place] [address] 60768- 0357 Apr, [place] [address] [place] [id number] [place] [address] 81970- 8701 Mar, [place] [address] [place] [address] [id number] [place] [address] 15075- 4430 Mar, Lupus erythematosus L93.0 and Diabetes type 2, controlled E11.9 [place] [address] [place] [address] [id number] [place] [address] 69418- 2494 Mar, Mood disorder F39 [place] [address] [place] [address] [id number] [place] [address] 32719- 8747 Mar, Tear of lateral meniscus of right knee, current, unspecified tear type, initial encounter S83.281A and Osteoarthritis of right knee, unspecified osteoarthritis type M17.9 [facility] [address] [place] [address] [id number] [place] [address] 60644- 5206 Mar, [facility] [address] [place] [address] [id number] [place] [address] 35465 2546 Feb, Mood disorder F39 [facility] [address] [place] [id number] [place] [address] 19303 2546 Feb, Rash R21 [facility] [address] [place] [id number] [place] [address] 97953 2546 Feb, [facility] [address] [place] [id number] [place] [address] 19944- 1051 Jan, Other chronic pain G89.29 and Muscle spasm M62.838 [place] [address] [place] [id number] [place] [address] 14757- 1946 Jan, Mood disorder F39 [facility] [address] [place] [id number] [place] [address] 34913 2541 Jan, Pain in right knee M25.561 ; Other chronic pain G89.29 and Muscle spasm M62.838 [facility] [address] [place] [id number] [place] [address] 47125- 1406 Dec, [facility] [address] [place] [id number] [place] [address] 29046- 4599 Dec, [facility] [address] [place] [address] [id number] [place] [address] 44392 2540 Nov, [facility] [address] [place] [address] [id number] [place] [address] 20690- 5066 Nov, Mood disorder F39 [facility] [address] [place] [address] 57642- 5095 Nov, Diabetes type 2, controlled E11.9 ; Bronchitis J40 ; Edema, unspecified type R60.9 ; Weight gain R63.5 and Right knee pain, unspecified chronicity M25.561 [place] [address] [place] [id number] [place] [address] 80935- 2305 Oct, Mood disorder F39 [place] [address] [place] [address] [id number] [place] [address] 84881- 7547 Oct, Lupus erythematosus L93.0 and Bilateral edema of lower extremity R60.0 [place] [address] [place] [address] [id number] [place] [address] 39102- 5383 Oct, Mood disorder F39 and Anxiety F41.9 [place] [address] [place] [id number] [place] [address] 67122- 6902 September, Mood disorder F39 ; Anxiety F41.9 and Anger reaction R45.4 [place] [address] [place] [id number] [place] [address] 90221- 1091 September, Diabetes type 2, controlled E11.9 ; Edema, unspecified type R60.9 and Fatigue, unspecified type R53.83 [place] [address] [place] [id number] [place] [address] 83265- 5697 Aug, Mood disorder F39 and Generalized anxiety disorder F41.1 [place] [address] [place] [id number] [place] [address] 87402- 7626 Aug, Diabetes type 2, controlled E11.9 ; Sinusitis J32.9 and Mood disorder F39 [place] [address] [place] [id number] [place] [address] 37526- 2646 15 Aug, 2015 Lupus erythematosus L93.0 [place] [address] [place] [id number] [place] [address] 07625- 2059 14 Aug, 2015 [place] [address] [place] [id number] [place] [address] 34709- 1697 Aug, [place] [address] [place] [id number] [place] [address] 60600- 9277 Jul, Diabetes type 2, controlled E11.9 [place] [address] [place] [id number] [place] [address] 88601- 1776 Jul, Mood disorder F39 and Depression F32.9 [facility] [address] [place] [address] 21499- 7678 Jul, Lupus erythematosus L93.0 and Diabetes type 2, controlled E11.9 [facility] [address] [place] [id number] [place] [address] 58793- 4165 Jul, Mood disorder F39 and Anxiety F41.9 [facility] [address] [place] [id number] [place] [address] 20712- 7319 Jul, [facility] [address] [place] [id number] [place] [address] 99679- 0161 Jul, [facility] [address] [place] [address] [id number] [place] [address] 95602- 1674 Jun, Mood disorder F39 and Anxiety F41.9 [facility] [address] [place] [id number] [place] [address] 39446- 9901 Jun, Mood disorder F39 [facility] [address] [place] [address] 56721- 2950 Jun, [facility] [address] [place] [id number] [place] [address] 21170- 9120 Jun, [facility] [address] [place] [address] 47867- 2938 Jun, Mood disorder F39 [facility] [address] [place] [address] 32537- 2298 Jun, [facility] [address] [place] [address] 89315- 4821 May, [facility] [address] [place] [address] [id number] [place] [address] 87107- 9166 May, [facility] [address] [address]- 0673 May, [facility] [address] [id number] [place] [address] 81843- 4579 May, [facility] [address] [place] [address] [id number] [place] [address] 94074- 2028 May, Anxiety F41.9 ; Dermatomyositis M33.90 and Diabetes type 2, controlled E11.9 [facility] [address] [place] [address] 90183 -2283 May, Sinusitis J32.9 and Cough R05 [facility] [address] [place] [id number] [place] [address] 21360- 2368 May, Mood disorder F39 [facility] [address] [id number] [place] [address] 21119- 7636 May, Adjustment disorder with mixed anxiety and depressed mood F43.23 [facility] [address] [place] [id number] [place] [address] 40468- 8445 Apr, [facility] [id number] [place] [address] 34948- 5730 Apr, [facility] [id number] [place] [address] 77119- 4178 Apr, Generalized anxiety disorder F41.1 and Mood disorder F39 [facility] [id number] [place] [address] 65920- 1088 Mar, [facility] [id number] [place] [address] 28207- 1802 Mar, [facility] [id number] [place] [address] 27270- 9198 Mar, [facility] [address] [id number] [place] [address] 47890- 4992 Mar, Mood disorder F39 [facility] [address] [id number] [place] [address] 61831- 5330 Feb, [facility] [address] [place] [id number] [place] [address] 10109- 6487 Feb, Diabetes E11.9 and Bronchitis J40 [place] [address] [place] [id number] [place] [address] 03755- 1842 Feb, [place] [address] [place] [id number] [place] [address] 39326- 3200 Feb, [place] [address] [place] [id number] [place] [address] 95530- 4200 Feb, Major depression, recurrent, full remission F33.42 and KELLY ( generalized anxiety disorder) F41.1 [place] [address] [place] [id number] [place] [address] 15057- 8321 Feb, [place] [address] 11340- 7924 Feb, Single major depressive episode, in partial or unspecified remission F32.5 [place] [address] 35675- 2916 Jan, Fatigue 780.79 [place] [address] 80079- 3941 Jan, [place] [address] 15970- 9239 Jan, Diabetes with other specified manifestations, type II or unspecified type, not stated as uncontrolled 250.80 [place] [address] [place] [id number] [place] [address] 00385- 4783 Jan, [place] [address] 85877- 1707 Dec, Hot flashes 627.2 ; Memory loss 780.93 and Joint pain 719.[address] 46916- 7727 Dec, Major depression, recurrent 296.30 ; Generalized anxiety disorder 300.02 ; Adjustment disorder with depressed mood 309.0 and No condition on [place] II V71.09 [place] [address] 59389- 1225 Dec, [place] [address] [place] [address] 86542- 5509 Nov, Cognitive and neurobehavioral dysfunction 294.9 ; Major depressive disorder, recurrent episode, moderate degree 296.32 and Anxiety state , unspecified 300.[address] [place] [address] 33303- 2810 Nov, [place] [id number] [place] [address] 41863- 4715 Nov, Bronchitis 490 and Diabetes with other specified manifestations, type II or unspecified type, not stated as uncontrolled 250.[address] 69912- 5857 Nov, Major depressive disorder, recurrent episode, moderate 296.32 and Anxiety disorder, unspecified 300.00 [place] [id number] [place] [address] 94338- 8819 Nov, Anxiety, generalized 300.02 ; Intermittent explosive disorder 312.34 ; No condition on [place] II V71.09 and No condition on axis III V71.09 [place] [id number] [place] [address] 87435- 3036 Oct, Diabetes with other specified manifestations, type II or unspecified type, not stated as uncontrolled 250.80 ; Urinary tract infection, site not specified 599.0 and Bronchitis [address] [place] [id number] [place] [address] 27726- 8148 Oct, Intermittent explosive disorder 312.34 ; Bipolar 1 disorder , depressed, moderate 296.52 ; Major depression, chronic 296.20 ; No condition on [place] II V71.09 and No condition on axis III V71.09 [place] [id number] [place] [address] 60562- 2398 Oct, Major depressive disorder, recurrent episode, moderate 296.32 ; Anxiety state 300.00 ; Cognitive decline 294.9 and No condition on [place] II V71.09 [place] [id number] [place] [address] 61508- 6768 Oct, [facility] [address] [address]- 6869 Oct, Major depressive disorder, recurrent episode, moderate 296.32 ; Anxiety disorder, unspecified 300.00 and Persistent disorder of initiating or maintaining sleep 307.42 [facility] [id number] [address]- 7361 September, Diabetes with other specified manifestations, type II or unspecified type, not stated as uncontrolled 250.80 ; Memory loss 780.93 and Cognitive complaints 799.59 [facility] [id number] [place] [address] 92526- 6386 September, No condition on [place] II V71.09 ; Major depression, recurrent 296.30 and Persistent mood [affective] disorder, unspecified 296.90 [facility] [id number] [place] [address] 75623- 3121 Aug, [facility] [id number] [place] [address] 735796- 7643 Aug, [facility] [id number] [place] [address] 58093- 0517 Aug, [facility] [id number] [place] [address] 86466- 3134 Jul, [facility] [address] [address]- 3786 Jul, [facility] [id number] [place] [address] 48257- 9886 Jul, [facility] [id number] [address]- 7016 Jul, [facility] [id number] [place] [address] 57205- 2546 Jul, [facility] [id number] [address]- 2546 Jun, [facility] [address] [place] [address] [id number] [place] [address]- 8749 Jun, 2014 [facility] [place] [facility] [address] [id number] [place] [address]- 9991 Jun, 2014 [facility] [place] [facility] [address] [id number] [place] [address]- 4936 Jun, 2014 [facility] [place] [facility] [address] [facility] [id number] [place] [address]- 7788 Jun, 2014 [facility] [place] [facility] [address] [facility] [id number] [place] [address]- 6456 Jun, 2014 [facility] [place] [facility] [address] [facility] [id number] [place] [address]- 8948 Jun, 2014 [facility] [place] [facility] [address] [facility] [id number] [place] [address]- 4328 Jun, 2014 [facility] [place] [facility] [address] [place] [id number] [place] [address]- 0800 Jun, 2014 [facility] [place] [facility] [address] [facility] [id number] [place] [address]- 9051 Jun, 2014 [facility] [place] [facility] [address] [facility] [id number] [place] [address]- 3683 Jun, 2014 [facility] [place] [facility] [address] [facility] [id number] [place] [address]- 2574 Jun, 2014 [facility] [place] [facility] [address] [facility] [id number] [address]- 2215 Jun, 2014 [facility] [place] [facility] [address] [facility] [id number] [place] [address]- 8270 May, [facility] [place] [facility] [address] [facility] [id number] [place] [address]- 5214 May, [facility] [place] [facility] [address] [facility] [id number] [place] [address]- 1238 Apr, [facility] [place] [facility] [address] [address]- 3749 Apr, [facility] [place] [facility] [address] [id number] [place] [address] Apr, [facility] [place] [facility] [address] [id number] [place] [address] Apr, [facility] [place] [facility] [address] [id number] [place] [address] Apr, [facility] [place] [facility] [address] [id number] [place] [address] Apr, [facility] [place] [facility] [address] [id number] [place] [address] Apr, [facility] [place] [facility] [address] [id number] [place] [address] Apr, [facility] [place] [facility] [address] [id number] [place] [address] Apr, [facility] [place] [facility] [address] [id number] [place] [address] Apr, [facility] [place] [facility] [address] [id number] [place] [address] Apr, [facility] [place] [facility] [address] [id number] [place] [address] Apr, [facility] [place] [facility] [address] [id number] [place] [address] Apr, [facility] [place] [facility] [address] [id number] [place] [address] Apr, [facility] [place] [facility] [address] [id number] [place] [address] Apr, [facility] [place] [facility] [address] [id number] [place] [address] Apr, [facility] [place] [facility] [address] [id number] [place] [address] Apr, [facility] [place] [facility] [address] [id number] [place] [address] Apr, [facility] [place] [facility] [address] [id number] [place] [address] Apr, [facility] [place] [facility] [address] [id number] [place] [address] Apr, [facility] [place] [facility] [address] [id number] [place] [address] Mar, [facility] [place] [facility] [address] [id number] [place] [address] Mar, [facility] [place] [facility] [address] [id number] [place] [address] Mar, [facility] [place] [facility] [address] [id number] [place] [address] Mar, [facility] [place] [facility] [address] [id number] [place] [address] Mar, [facility] [place] [facility] [address] [id number] [place] [address] Mar, [facility] [place] [facility] [address] [id number] [place] [address] Mar, [facility] [place] [facility] [address] [id number] [place] [address] Mar, [facility] [place] [facility] [address] [id number] [place] [address] Mar, [facility] [place] [facility] [address] [id number] [place] [address] Mar, [facility] [place] [facility] [address] [id number] [place] [address] Mar, [facility] [place] [facility] [address] [id number] [place] [address] Mar, [facility] [place] [facility] [address] [id number] [place] [address] 3[address] Mar, [facility] [place] [facility] [address] [id number] [place] [address] 64[address] Feb, [facility] [place] [facility] [address] [id number] [place] [address]204 Feb, [facility] [place] [facility] [address] [id number] [place] [address]14 Feb, [facility] [place] [facility] [address] [id number] [place] [address] Feb, [facility] [place] [facility] [address] [id number] [place] [address] 0310 Feb, [facility] [place] [facility] [address] [id number] [place] [address] 0296 Feb, [facility] [place] [facility] [address] [id number] [place] [address]90 Feb, [facility] [place] [facility] [address] [id number] [place] [address] 4797 Feb, [facility] [place] [facility] [address] [id number] [place] [address] 0857 Feb, [facility] [place] [facility] [address] [id number] [address] Feb, [facility] [place] [facility] [address] [id number] [address] Feb, [facility] [place] [facility] [address] [id number] [address] Feb, [facility] [place] [facility] [address] [id number] [place] [address] 1448 Feb, [facility] [place] [facility] [address] [id number] [place] [address]- 8357 Feb, [facility] [place] [facility] [address] [id number] [place] [address] Feb, [facility] [place] [facility] [address] [id number] [place] [address]- 9201 10 Jan, 2013 [facility] [place] [facility] [address] [id number] [place] [address]- 2683 08 Jan, 2013 [facility] [place] [facility] [address] [id number] [place] [address] 2070 Jan, [facility] [place] [facility] [address] [id number] [place] [address] 5512 Jan, [facility] [place] [facility] [address] [id number] [place] [address] 7915 Jan, [facility] [place] [facility] [address] [id number] [place] [address]- 5015 Dec, [facility] [place] [facility] [address] [id number] [place] [address] 4250 Dec, [facility] [place] [facility] [address] [id number] [place] [address] 6434 Dec, [facility] [place] [facility] [address] [id number] [place] [address]- 6679 Dec, [facility] [place] [facility] [address] [id number] [place] [address]- 7888 Nov, [facility] [place] [facility] [address] [id number] [place] [address]- 0770 Nov, [facility] [place] [facility] [address] [id number] [place] [address]- 7905 Nov, [facility] [place] [facility] [address] [id number] [place] [address]- 3744 Nov, [facility] [place] [facility] [address] [id number] [place] [address]- 7517 Nov, [facility] [place] [facility] [address] [id number] [place] [address]- 0724 Nov, [facility] [place] [facility] [address] [id number] [place] [address]- 3068 Nov, [facility] [place] [facility] [address] [id number] [place] [address]- 4685 Nov, [facility] [place] [facility] [address] [id number] [place] [address]- 5835 Nov, [facility] [place] [facility] [address] [id number] [place] [address]- 8896 Nov, [facility] [place] [facility] [address] [id number] [place] [address] 555[address] Oct, [facility] [place] [facility] [address] [id number] [place] [address]- 1799 Oct, [facility] [place] [facility] [address] [id number] [place] [address]- 5055 September, [facility] [place] [facility] [address] [id number] [place] [address]- 9206 September, [facility] [place] [facility] [address] [id number] [place] [address]- 9596 September, [facility] [place] [facility] [address] [id number] [place] [address]- 6109 September, [facility] [place] [facility] [address] [id number] [place] [address]- 0438 Aug, [facility] [place] [facility] [address] [id number] [place] [address]- 0228 Aug, [facility] [place] [facility] [address] [id number] [place] [address]- 8622 Aug, [facility] [place] [facility] [address] [id number] [place] [address]- 3352 24 Jul, 2013 [facility] [place] [facility] [address] [id number] [place] [address]- 1780 24 Jul, 2013 [facility] [place] [facility] [address] [id number] [place] [address]- 1236 Jul, [facility] [place] [facility] [address] [id number] [place] [address]- 5052 Jul, [facility] [place] [facility] [address] [id number] [place] [address]- 9949 May, [facility] [place] [facility] [address] [id number] [place] [address]- 0862 May, [facility] [place] [facility] [address] [id number] [place] [address]- 5656 May, [facility] [place] [facility] [address] [id number] [place] [address]- 0248 Mar, [facility] [place] [facility] [address] [id number] [place] [address]- 3609 15 Mar, 2013 [facility] [place] [facility] [address] [id number] [place] [address]- 7929 Mar, [facility] [place] [facility] [address] [id number] [place] [address]- 0850 Mar, [facility] [place] [facility] [address] [id number] [place] [address] 0234 Feb, [facility] [place] [facility] [address] [id number] [place] [address]- 0545 Feb, [facility] [place] [facility] [address] [id number] [place] [address]- 6942 04 Feb, 2013 [facility] [place] [facility] [address] [id number] [address]- [address]68 16 Jan, 2013 [facility] [place] [facility] [address] [id number] [address]- [address]304 12 Jan, 2013 [facility] [place] [facility] [address] [id number] [place] [address]- 9371 09 Jan, 2013 [facility] [place] [facility] [address] [id number] [place] [address]- 6280 Dec, [facility] [place] [facility] [address] [id number] [place] [address]- 8886 Dec, [facility] [place] [facility] [address] [id number] [place] [address]- 2325 Dec, [facility] [address] [id number] [place] [address]- 4522 Dec, [facility] [address] [id number] [place] [address]- 0683 Nov, [facility] [address] [id number] [place] [address]- 0327 Oct, [facility] [address] [id number] [place] [address]- 0717 Oct, [facility] [address] [id number] [place] [address]- 1774 September, [facility] [address] [id number] [place] [address]- 4788 September, [facility] [address] [id number] [place] [address]- 0628 September, [facility] [address] [id number] [place] [address]- 2318 Aug, [facility] [address] [id number] [place] [address]- [address] Aug, [facility] [address] [id number] [place] [address]- 7033 Aug, [facility] [address] [id number] [place] [address]- 7565 Aug, [facility] [address] [id number] [place] [address]- 3267 Jul, [facility] [place] [facility] [address] [id number] [place] [address]- 5824 Jul, [facility] [place] [facility] [address] [id number] [place] [address]- 8737 Jul, [facility] [address] [id number] [place] [address]- 4143 15 Jul, 2012 [facility] [place] [facility] [address] [id number] [place] [address]- 0707 14 Jul, 2012 [facility] [place] [facility] [address] [id number] [place] [address]- 5403 13 Jul, 2012 [facility] [place] [facility] [address] [id number] [place] [address]- 0555 13 Jul, 2012 [facility] [place] [facility] [address] [id number] [place] [address]- 7327 06 Jun, 2012 [facility] [place] [facility] [address] [id number] [place] [address]- 0679 Jun, [facility] [place] [facility] [address] [id number] [place] [address]- 5569 05 Jun, 2012 [facility] [address] [id number] [place] [address]- 0688 Jun, [facility] [address] [id number] [place] [address]- 6548 May, [facility] [place] [facility] [address] [id number] [place] [address]- 8569 May, [facility] [address] [id number] [place] [address]- 8770 May, [facility] [address] [id number] [place] [address]- 6180 May, [facility] [place] [facility] [address] [id number] [place] [address]- 1962 May, [facility] [place] [facility] [address] [id number] [place] [address]- 7465 Apr, [facility] [place] [facility] [address] [id number] [place] [address]- 0746 Apr, [facility] [place] [facility] [address] [id number] [place] [address]- 6511 Mar, [facility] [place] [facility] [address] [id number] [place] [address]- 5927 Mar, [facility] [place] [facility] [address] [id number] [place] [address]- 6306 Mar, [facility] [place] [facility] [address] [id number] [place] [address]- 0799 Mar, [facility] [place] [facility] [address] [id number] [place] [address]- 4403 Mar, [facility] [place] [facility] [address] [id number] [place] [address]- 8541 Mar, [facility] [place] [facility] [address] [id number] [place] [address]- 0873 Mar, [facility] [place] [facility] [address] [id number] [place] [address]- 6153 Mar, [facility] [place] [facility] [address] [id number] [place] [address]- 8255 Mar, [facility] [place] [facility] [address] [id number] [place] [address]- 7079 Mar, [facility] [place] [facility] [address] [id number] [place] [address]- 5984 Feb, [facility] [place] [facility] [address] [id number] [place] [address]- 4639 Feb, [facility] [place] [facility] [address] [id number] [place] [address]- 2609 Feb, [facility] [place] [facility] [address] [id number] [address]- 0981 Feb, [facility] [place] [facility] [address] [id number] [place] [address]- 8902 Feb, [facility] [place] [facility] [address] [facility] [id number] [place] [address]- 4761 Feb, [facility] [place] [facility] [address] [facility] [id number] [address]- 7461 Feb, [facility] [place] [facility] [address] [id number] [place] [address]- 6475 12 Jan, 2012 [facility] [place] [facility] [address] [id number] [place] [address]- 5646 07 Jan, 2012 [facility] [place] [facility] [address] [id number] [place] [address]- 2656 Dec, [facility] [place] [facility] [address] [id number] [place] [address]- 7436 Dec, [facility] [place] [facility] [address] [id number] [place] [address]- 9900 Dec, [facility] [place] [facility] [address] [id number] [place] [address]- 4056 Dec, [facility] [place] [facility] [address] [id number] [place] [address]- 6750 16 Dec, 2011 [facility] [place] [facility] [address] [id number] [place] [address]- 0404 Dec, [facility] [place] [facility] [address] [id number] [place] [address]- 3125 Nov, [facility] [place] [facility] [address] [id number] [place] [address]- 9633 Nov, [facility] [place] [facility] [address] [id number] [place] [address]- 8175 Nov, [facility] [place] [facility] [address] [id number] [place] [address]- 6373 Nov, [facility] [place] [facility] [address] [id number] [place] [address]- 6153 September, [facility] [place] [facility] [address] [id number] [place] [address] September, [facility] [place] [facility] [address] [id number] [place] [address]- 7905 September, [facility] [place] [facility] [address] [id number] [place] [address]- 8703 Jul, [facility] [address] [id number] [address]65 Jun, [facility] [address]00565100[place] [address] 6896 Jun, [facility] [address]00565[place] [address]- 4526 Jun, [facility] [address]00565100[place] [address]- 9948 Apr, [facility] [address]00565100[place] [address]- 5649 Mar, [facility] [id number] [place] [address]- 8931 Mar, [facility] [id number] [place] [address]- 1453 Feb, [facility] [address]65[address] [address]239 Feb, [facility] [address]00565[address] [address]- 8680 Feb, [facility] [address]00565[address] [address]- 0754 Jul, [facility] [address] [id number] [address] Feb, IMMUNIZATIONS No Known Immunizations SOCIAL HISTORY Never Assessed REASON FOR VISIT Anxiety. , Sinus issues. , Black Cohosh not working for hot flashes. , Pt has some toe nails that need looked at. CANDI Carranza PLAN OF CARE VITAL SIGNS Height 62 in 2016-12-09 Weight 234 lbs 2016-12-09 Temperature 98.6 degrees Fahrenheit 2016-12-09 Heart Rate 78 bpm 2016-12-09 Respiratory Rate 20 2016-12-09 BMI 42.79 kg/m2 2016-12-09 Blood pressure systolic 132 mmHg 2016-12-09 Blood pressure diastolic 92 mmHg 2016-12-09 MEDICATIONS Medication Instructions Dosage Frequency Start Date End Date Duration Status Triamcinolone Acetonide 0.1 % Externally Twice a day 1 application to affected area 12h May, Active PredniSONE 20 MG Orally Once a day 1 tablet 24h May, 30 days Active Omeprazole 20 mg Orally Once a day 1 capsule 24h 30 Active Glucocard Expression Monitor w/Device as directed Nov, Active Acidophilus 100 MG Orally Once a day 1 capsule 24h 06 May, 2016 Active Spironolactone 25 MG Orally Once a day 1 tablet 24h Active Clonidine HCl 0.1 MG Orally Twice a day 1 tablet 12h Nov, 30 day(s) Active Xanax 2 MG Orally Twice a day 1 tablet 12h Apr, 28 days Active Folic Acid 1 MG TAKE ONE TABLET BY MOUTH ONCE DAILY (DO NOT TAKE ON DAYS YOU TAKE METHOTREXATE) 30 Active Loratadine 10 mg Orally Once a day TAKE ONE TABLET BY MOUTH DAILY 24h 30 Active Lisinopril-Hydrochlorothiazide 20-25 MG Orally Once a day 1 tablet 24h 30 Active Actos 30 MG Orally Once a day 1 tablet 24h Jul, 30 Active Nyamyc 597698 UNIT/GM APPLY TO AFFECTED AREA 12h 5 Active Potassium Chloride Marie ER 20 MEQ Orally Once a day 1 tablet with food 24h Active Glucocard Expression Test - as directed 24h Nov, Active Victoza 0.6 mg/0.1 mL (18 mg/3 mL) Subcutaneous Once a day inject 0.3 milliliter (1.8 mg) by subcutaneous route once daily 24h Dec, 90 days Active Methotrexate 2.5 MG Orally 1 time per week 6 28 Active Proventil HFA 108 (90 Base) MCG/ACT 2 puffs as needed 6h Active Lasix 20 mg Orally Once a day 1 tablet 24h Nov, 30 day(s) Active RESULTS Name Result Date Reference Range A1C (IN HOUSE) 2016-12-09 A1C IN HOUSE 6.1 4.3 - 5.6 % Previous A1c 6.3 Lot [id number] Exp date 08/2018 PROCEDURES Procedure Date Ordered Result Body Site GLYCATED HEMOGLOBIN TEST December 09, 2016 INSTRUCTIONS MEDICATIONS ADMINISTERED No Known Medications MEDICAL (GENERAL) HISTORY Type Description Date Medical History type II diabetes-dx'd 12/2010 Medical History dysfunctional uterine bleeding--endometrial bx 12/2010 Medical History asthma Medical History hypertension Medical History obesity Medical History anxiety Medical History autoimmune disease Surgical History x1 Hospitalization History child Hospitalization History Asthma
--- OUTSIDE RECORDS SUMMARY | 2018-02-03 00:02 | XMS REPORT ---
Author Author KATHY KAUFMAN Organization [employer] Address Unknown Phone Unavailable Care Team Providers Care Circus Rider Name Role Phone KATHY KAUFMAN CP Unavailable Allergies No Known Allergies Problems Problem Type Condition Code Onset Dates Condition Status Problem Diabetes type 2, controlled E11.9 Active Problem Allergic rhinitis due to pollen J30.1 Active Problem Lupus erythematosus L93.0 Active Problem Mood disorder F39 Active Problem Menopause Z78.0 Active Medications Medication Code System Code Instructions Start Date End Date Status Dosage Ativan [facility] [address]-29 1 MG Twice a day PRN for anxiety July 30, 2014 1 tablet by Oral route 2 times per day PRN anxiety Results No Known Results Summary Purpose [employer] Submission
--- OUTSIDE RECORDS SUMMARY | 2018-02-03 00:02 | XMS REPORT ---
Author Author ROSANA Scott Organization [facility] Address [address] [place] [address] Care Team Providers Care Cad Drafter Name Role Phone ROSANA Scott Unavailable PROBLEMS Type Condition ICD9-CM Code STI10-HP Code Onset Dates Condition Status SNOMED Code Problem Plantar warts B07.0 Active 05874228 Problem Lumbago with sciatica, left side M54.42 Active 321774882 Problem Plantar wart of both feet B07.0 Active [id number] Problem Morbid (severe) obesity due to excess calories E66.01 Active 142758639 Problem Dermatomyositis M33.90 Active 256484424 Problem Tachycardia with heart rate 121-140 beats per minute R00.0 Active 0168793 Problem Controlled type 2 diabetes mellitus without complication, without long -term current use of insulin E11.9 Active 190748950 Problem Enlarged thyroid gland E04.9 Active 1954370 Problem Body mass index (BMI) of 45.0-49.9 in adult Z68.42 Active 218343834 Problem Menopause Z78.0 Active 175225325 Problem Allergic rhinitis due to pollen J30.1 Active 22114718 Problem Osteoarthritis of right knee, unspecified osteoarthritis type M17.9 Active 869427484 Problem Anxiety F41.9 Active 30249197 Problem Mood disorder F39 Active 03013042 Problem Other chronic pain G89.29 Active 26673008 Problem Diabetes type 2, controlled E11.9 Active 52597061 Problem Arthritis M19.90 Active 6373286 ALLERGIES Substance Reaction Event Type Date Status Fluarix Quadrivalent vomiting Drug Allergy Apr, Active Zoloft makes very angry Drug Allergy Apr, Active Fluarix vomiting Drug Allergy Apr, Active Aspirin rash Drug Allergy Apr, Active Latex, Natural Rubber rash Non Drug Allergy Apr, Active ENCOUNTERS Encounter Location Date Diagnosis [facility] [address] [facility] [id number] [place] [address] 18067- 3411 Nov, [facility] [address] [place] [id number] [place] [address] 02589- 2716 Nov, [facility] [address] [place] [id number] [place] [address] 68632- 5692 Oct, Plantar wart of both feet B07.0 [facility] [address] [place] [id number] [place] [address] 97195- 0903 Oct, [facility] [address] [id number] [place] [address] 36758- 5263 Oct, Acute right ankle pain M25.571 and Plantar wart of both feet B07.0 [place] [address] [place] [id number] [place] [address] 11311- 7940 September, Other chronic pain G89.29 [place] [address] [place] [id number] [place] [address] 76569- 3805 September, Other chronic pain G89.29 [place] [address] [place] [id number] [place] [address] 22218- 1336 September, Other chronic pain G89.29 [place] [address] [place] [id number] [place] [address] 93059- 9169 Aug, Mood disorder F39 [place] [address] [place] [id number] [place] [address] 95698- 4620 Aug, Other chronic pain G89.29 ; Controlled type 2 diabetes mellitus without complication, without long-term current use of insulin E11.9 ; Low back pain M54.5 and Tinea corporis B35.4 [place] [address] [place] [id number] [place] [address] 22536- 5788 Aug, Mood disorder F39 and Anxiety F41.9 [place] [id number] [place] [address] 50234- 2173 Aug, Mood disorder F39 and Anxiety F41.9 [place] [address] [place] [id number] [place] [address] 39082- 2642 Jul, [facility] [address] 88857 -1213 13 Jul, 2017 Scabies B86 and BMI 45.0-49.9, adult Z68.42 [place] [address] 47925- 1491 Jul, [place] [address] 08135- 5296 Jul, Mood disorder F39 and Anxiety F41.9 [place] [address] 02882- 0862 Jul, [facility] [place] [address] 89289 -2776 27 Jun, 2017 Bronchitis J40 ; Dark urine R82.99 and BMI 45.0-49.9, adult Z68.42 [place] [address] 69597- 0324 14 Jun, 2017 Acute pain of right shoulder M25.511 and Acute pain of right knee M25.561 [place] [address] 82723- 8466 May, BMI 40.0-44.9, adult Z68.41 ; Controlled type 2 diabetes mellitus without complication, without long-term current use of insulin E11.9 ; Muscle cramping R25.2 ; Hot flashes R23.2 ; Mood disorder F39 ; Anxiety F41.9 and Morbid (severe) obesity due to excess calories E66.01 [place] [address] [place] [id number] [place] [address] 68672- 2435 May, BMI 40.0-44.9, adult Z68.41 ; Controlled type 2 diabetes mellitus without complication, without long-term current use of insulin E11.9 ; Muscle cramping R25.2 and Hot flashes R23.2 [place] [address] 23858- 1757 May, Tachycardia with heart rate 121-140 beats per minute R00.0 ; Morbid (severe) obesity due to excess calories E66.01 ; Diabetes type 2, controlled E11.9 and Enlarged thyroid gland E04.9 [place] [id number] [place] [address] 60721- 5389 May, Encounter for well woman exam with [...] Dysuria R30.0 and Screening breast examination Z12.[address] 34184- 6288 Apr, Mood disorder F39 ; Other chronic pain G89.29 and Anxiety F41.9 [place] [address] 88597- 6704 Apr, Lumbago with sciatica, left side M54.42 and Other chronic pain G89.29 [place] [address] [place] [id number] [place] [address] 87526- 3136 Apr, Lupus erythematosus L93.0 [place] [address] [place] [id number] [place] [address] 99544- 6022 Mar, Plantar wart of both feet B07.0 [place] [address] [place] [id number] [place] [address] 81759- 4109 Mar, Lupus erythematosus L93.0 and Sinus drainage J34.89 [place] [address] [place] [id number] [place] [address] 87560- 2222 09 Mar, 2017 Mood disorder F39 ; Other chronic pain G89.29 and Anxiety F41.[address] 61523- 9258 Mar, Mood disorder F39 ; Arthritis M19.90 and Plantar warts B07.0 [facility] [address] 81558- 8897 Feb, Lupus erythematosus L93.0 [facility] [address] 60516- 0502 Feb, Other chronic pain G89.29 [facility] [address] 65551- 2317 Feb, Mood disorder F39 and Anxiety F41.9 [place] [address] 29425- 9644 Jan, [place] [address] 73801- 5835 Jan, Mood disorder F39 [place] [address] 63389- 5622 Dec, Nail, ingrown L60.0 [facility] [address] 62716- 8623 Dec, Nail, ingrown L60.0 [facility] [address] [id number] [place] [address] 97977- 3663 Nov, Mood disorder F39 and Anxiety F41.9 [place] [address] [place] [id number] [place] [address] 37971- 8889 Nov, Sinus drainage J34.89 ; Hot flashes R23.2 ; Anxiety F41.9 and Diabetes type 2, controlled E11.9 [facility] [id number] [place] [address] 48316- 6053 Nov, Nail, ingrown L60.0 [facility] [address] [place] [id number] [place] [address] 11755- 3388 Oct, Anxiety F41.9 and Mood disorder F39 [facility] [address] [place] [address]- 4340 Oct, Nail, ingrown L60.0 and Anxiety F41.9 [facility] [id number] [place] [address] 77994- 6804 Oct, Lupus erythematosus L93.0 [facility] [id number] [place] [address] 26626- 3737 September, [facility] [id number] [place] [address] 48463- 6405 September, [facility] [id number] [place] [address] 89223- 6945 September, Lupus erythematosus L93.0 [facility] [id number] [place] [address] 90038- 3975 Aug, [facility] [id number] [place] [address] 54371- 4177 Aug, Mood disorder F39 and Anxiety F41.9 [facility] [id number] [place] [address] 30044- 5195 Aug, Lupus erythematosus L93.0 ; Diabetes type 2, controlled E11.9 and Localized edema R60.0 [facility] [id number] [place] [address] 68711- 7068 Aug, [facility] [id number] [place] [address] 91055- 6523 Jul, Anxiety F41.9 and Mood disorder F39 [facility] [id number] [place] [address] 45887- 4162 Jul, Diabetes type 2, controlled E11.9 [facility] [id number] [place] [address] 76748- 5201 Jun, Anxiety F41.9 [facility] [id number] [place] [address] 21069- 3118 May, [facility] [id number] [place] [address] 14402- 2474 May, [place] [address] [id number] [place] [address] 83221- 8006 May, Nausea R11.0 ; Other chronic pain G89.29 and Pain in right knee M25.561 [place] [address] [place] [id number] [place] [address] 41552- 9549 May, [place] [address] [place] [id number] [place] [address] 33255- 8235 Apr, Tear of medial meniscus of right knee, current, unspecified tear type, subsequent encounter S83.241D and Tear of lateral meniscus of right knee, current, unspecified tear type, subsequent encounter S83.281D [place] [address] [id number] [place] [address] 24167- 5672 Apr, Anxiety F41.9 and Mood disorder F39 [place] [address] [place] [id number] [place] [address] 76428- 8048 Apr, Anxiety F41.9 [place] [address] [place] [id number] [place] [address] 39285- 6091 Apr, [place] [address] [place] [id number] [place] [address] 05658- 4020 Mar, [place] [address] [place] [id number] [place] [address] 67108- 5490 Mar, Lupus erythematosus L93.0 and Diabetes type 2, controlled E11.9 [place] [address] [place] [address] 47163- 7417 Mar, Mood disorder F39 [place] [address] [place] [id number] [place] [address] 29389- 8007 Mar, Tear of lateral meniscus of right knee, current, unspecified tear type, initial encounter S83.281A and Osteoarthritis of right knee, unspecified osteoarthritis type M17.9 [place] [address] [place] [id number] [place] [address] 62984- 9236 Mar, [facility] [address] [address]- 1784 Feb, Mood disorder F39 [facility] [id number] [place] [address] 37976- 7510 Feb, Rash R21 [facility] [address] [place] [address] 49299- 0985 Feb, [facility] [id number] [place] [address] 75589- 5680 Jan, Other chronic pain G89.29 and Muscle spasm M62.838 [facility] [id number] [place] [address] 94182- 4800 Jan, Mood disorder F39 [facility] [id number] [place] [address] 25562- 3985 Jan, Pain in right knee M25.561 ; Other chronic pain G89.29 and Muscle spasm M62.838 [facility] [id number] [place] [address] 54485- 8203 Dec, [facility] [id number] [place] [address] 83713- 3584 Dec, [facility] [id number] [place] [address] 27832- 3299 Nov, [facility] [id number] [place] [address] 19405- 3030 Nov, Mood disorder F39 [facility] [address] [place] [address] 94949- 3528 Nov, Diabetes type 2, controlled E11.9 ; Bronchitis J40 ; Edema, unspecified type R60.9 ; Weight gain R63.5 and Right knee pain, unspecified chronicity M25.561 [facility] [address] [address]- 5541 Oct, Mood disorder F39 [facility] [id number] [place] [address] 88517- 0896 Oct, Lupus erythematosus L93.0 and Bilateral edema of lower extremity R60.0 [facility] [id number] [place] [address] 59427- 7302 Oct, Mood disorder F39 and Anxiety F41.9 [facility] [id number] [place] [address] 65510- 3649 September, Mood disorder F39 ; Anxiety F41.9 and Anger reaction R45.4 [place] [address] [place] [id number] [place] [address] 29381- 8079 September, Diabetes type 2, controlled E11.9 ; Edema, unspecified type R60.9 and Fatigue, unspecified type R53.83 [place] [address] [place] [id number] [place] [address] 12710- 2623 Aug, Mood disorder F39 and Generalized anxiety disorder F41.1 [place] [address] [place] [id number] [place] [address] 81729- 4543 Aug, Diabetes type 2, controlled E11.9 ; Sinusitis J32.9 and Mood disorder F39 [place] [address] [place] [id number] [place] [address] 78052- 6161 Aug, Lupus erythematosus L93.0 [facility] [id number] [place] [address] 71760- 5714 Aug, [facility] [id number] [place] [address] 13964- 9766 Aug, [facility] [id number] [place] [address] 11906- 3188 Jul, Diabetes type 2, controlled E11.9 [facility] [address] [id number] [place] [address] 95072- 5531 Jul, Mood disorder F39 and Depression F32.9 [facility] [id number] [place] [address] 94557- 6929 Jul, Lupus erythematosus L93.0 and Diabetes type 2, controlled E11.9 [facility] [address] [address]- 3576 Jul, Mood disorder F39 and Anxiety F41.9 [facility] [id number] [place] [address] 91281 2546 Jul, [facility] [id number] [place] [address] 31158- 0606 Jul, [facility] [id number] [place] [address] 60361- 1696 Jun, Mood disorder F39 and Anxiety F41.9 [facility] [id number] [place] [address] 59592- 7171 Jun, Mood disorder F39 [facility] [id number] [place] [address] 38345- 4516 Jun, [facility] [address] [place] [address] 79386- 9430 Jun, [facility] [address] [place] [address] 91046- 5459 Jun, Mood disorder F39 [facility] [address] [place] [address] 35807- 7166 Jun, [facility] [address] [address]- 7401 May, [facility] [address] [address]- 2541 May, [facility] [address] [place] [address] 01112- 1260 May, [facility] [id number] [place] [address] 24169- 1232 May, [facility] [address] [address]- 2230 May, Anxiety F41.9 ; Dermatomyositis M33.90 and Diabetes type 2, controlled E11.9 [facility] [id number] [place] [address] 75793 -6662 May, 2016 Sinusitis J32.9 and Cough R05 [facility] [id number] [place] [address] 04522- 6827 07 May, 2015 Mood disorder F39 [facility] [address] 68797- 3578 May, Adjustment disorder with mixed anxiety and depressed mood F43.23 [facility] [id number] [place] [address] 40008- 9667 Apr, [facility] [id number] [place] [address] 33134- 9993 Apr, [facility] [id number] [place] [address] 09309- 5009 Apr, Generalized anxiety disorder F41.1 and Mood disorder F39 [facility] [id number] [place] [address] 31217- 4407 Mar, [facility] [id number] [place] [address] 88631- 8715 Mar, [facility] [id number] [place] [address] 58948- 1164 Mar, [facility] [id number] [place] [address] 54801- 2126 Mar, Mood disorder F39 [facility] [id number] [place] [address] 87046- 6243 Feb, [facility] [id number] [place] [address] 36865- 7770 Feb, Diabetes E11.9 and Bronchitis J40 [facility] [id number] [place] [address] 99480- 2288 Feb, [facility] [id number] [place] [address] 54720- 7216 Feb, [place] [address] [id number] [place] [address] 27254- 4661 Feb, Major depression, recurrent, full remission F33.42 and KELLY ( generalized anxiety disorder) F41.1 [place] [address] [place] [id number] [place] [address] 28092- 4037 Feb, [place] [address] 72501- 9994 Feb, Single major depressive episode, in partial or unspecified remission F32.5 [place] [address] 47804- 3764 Jan, Fatigue 780.79 [place] [address] 27652- 7395 Jan, [place] [address] 17966- 6684 Jan, Diabetes with other specified manifestations, type II or unspecified type, not stated as uncontrolled 250.80 [place] [address] 43822- 5096 Jan, [place] [address] [place] [id number] [place] [address] 23695- 3925 Dec, Hot flashes 627.2 ; Memory loss 780.93 and Joint pain 719.40 [place] [address] [place] [address] [place] [address] 37261- 5837 Dec, Major depression, recurrent 296.30 ; Generalized anxiety disorder 300.02 ; Adjustment disorder with depressed mood 309.0 and No condition on Blaine II V71.09 [place] [address] 71910- 4707 Dec, [place] [address] [id number] [place] [address] 58057- 7291 Nov, Cognitive and neurobehavioral dysfunction 294.9 ; Major depressive disorder, recurrent episode, moderate degree 296.32 and Anxiety state , unspecified 300.00 [place] [address] [place] [address] 19907- 6316 Nov, [place] [id number] [place] [address] 02947- 0123 Nov, Diabetes with other specified manifestations, type II or unspecified type, not stated as uncontrolled 250.80 and Bronchitis [address] [place] [id number] [place] [address] 66589- 8219 Nov, Major depressive disorder, recurrent episode, moderate 296.32 and Anxiety disorder, unspecified 300.[address] 79903- 0636 Nov, Anxiety, generalized 300.02 ; Intermittent explosive disorder 312.34 ; No condition on Blaine II V71.09 and No condition on axis III V71.[address] 25651- 5682 Oct, Diabetes with other specified manifestations, type II or unspecified type, not stated as uncontrolled 250.80 ; Urinary tract infection, site not specified 599.0 and Bronchitis [id number] [place] [address] 03773- 7600 Oct, Intermittent explosive disorder 312.34 ; Bipolar 1 disorder , depressed, moderate 296.52 ; Major depression, chronic 296.20 ; No condition on Blaine II V71.09 and No condition on axis III V71.[address] [place] [address] 42507- 9736 Oct, Major depressive disorder, recurrent episode, moderate 296.32 ; Anxiety state 300.00 ; Cognitive decline 294.9 and No condition on Blaine II V71.09 [address] [place] [address] 87713- 5877 Oct, [place] [id number] [place] [address] 72451- 3388 Oct, Major depressive disorder, recurrent episode, moderate 296.32 ; Anxiety disorder, unspecified 300.00 and Persistent disorder of initiating or maintaining sleep 307.42 [facility] [id number] [place] [address] 238662- 5369 September, Diabetes with other specified manifestations, type II or unspecified type, not stated as uncontrolled 250.80 ; Memory loss 780.93 and Cognitive complaints 799.59 [facility] [address] 994991- 8941 September, No condition on Blaine II V71.09 ; Major depression, recurrent 296.30 and Persistent mood [affective] disorder, unspecified 296.90 [facility] [id number] [place] [address] 406763- 9236 Aug, [facility] [id number] [place] [address] 58928053- 8323 Aug, [facility] [id number] [place] [address] 337191- 0629 Aug, [facility] [id number] [place] [address] 537454- 0275 Jul, [facility] [id number] [place] [address] 619682- 4461 Jul, [facility] [id number] [place] [address] 104008- 8402 Jul, [facility] [id number] [place] [address] 990576- 6100 Jul, [facility] [id number] [place] [address] 20314- 9766 Jul, [facility] [id number] [place] [address] 46579- 1621 Jun, [facility] [id number] [place] [address] [id number]- 5156 Jun, [facility] [id number] [place] [address]150- 8387 Jun, [facility] [place] [facility] [address] [id number] [place] [address] Jun, 2014 [facility] [place] [facility] [address] [id number] [place] [address] Jun, 2014 [facility] [place] [facility] [address] [facility] [id number] [place] [address]- [address]20 Jun, 2014 [facility] [place] [facility] [address] [id number] [place] [address] 2002 Jun, 2014 [facility] [place] [facility] [address] [id number] [place] [address]291 Jun, 2014 [facility] [place] [facility] [address] [id number] [place] [address]18 Jun, 2014 [facility] [place] [facility] [address] [facility] [id number] [place] [address]- [address]30 Jun, 2014 [facility] [place] [facility] [address] [id number] [place] [address]140 Jun, 2014 [facility] [place] [facility] [address] [id number] [place] [address]- [address]883 Jun, 2014 [facility] [place] [facility] [address] [facility] [id number] [place] [address]- [address]189 Jun, 2014 [facility] [place] [facility] [address] [facility] [id number] [place] [address]- [address] May, [facility] [place] [facility] [address] [facility] [id number] [place] [address]- 1460 May, [facility] [place] [facility] [address] [id number] [place] [address]- 7192 Apr, [facility] [place] [facility] [address] [id number] [place] [address]- [address]25 Apr, [facility] [place] [facility] [address] [facility] [id number] [place] [address]- 9554 Apr, [facility] [place] [facility] [address] [id number] [place] [address]- 4695 Apr, [facility] [place] [facility] [address] [id number] [place] [address] Apr, [facility] [place] [facility] [address] [id number] [place] [address] Apr, [facility] [place] [facility] [address] [id number] [place] [address] Apr, [facility] [place] [facility] [address] [id number] [place] [address] Apr, [facility] [place] [facility] [address] [id number] [place] [address] Apr, [facility] [place] [facility] [address] [id number] [place] [address] 395[address] Apr, [facility] [place] [facility] [address] [id number] [place] [address] 8759 Apr, [facility] [place] [facility] [address] [id number] [place] [address] 4[address] Apr, [facility] [place] [facility] [address] [id number] [place] [address] Apr, [facility] [place] [facility] [address] [id number] [place] [address] 8[address] Apr, [facility] [place] [facility] [address] [id number] [place] [address] 4143 Apr, [facility] [place] [facility] [address] [id number] [place] [address] 7975 Apr, [facility] [place] [facility] [address] [id number] [place] [address] 9826 Apr, [facility] [place] [facility] [address] [id number] [place] [address] 6826 Apr, [facility] [place] [facility] [address] [id number] [place] [address] 3131 Apr, [facility] [place] [facility] [address] [id number] [place] [address] 4800 Apr, [facility] [place] [facility] [address] [id number] [place] [address] 3[address] Mar, [facility] [place] [facility] [address] [id number] [place] [address] 0657 Mar, [facility] [place] [facility] [address] [id number] [place] [address] 2808 Mar, [facility] [place] [facility] [address] [id number] [place] [address] 1054 Mar, [facility] [place] [facility] [address] [id number] [place] [address] 9115 Mar, [facility] [place] [facility] [address] [id number] [place] [address] 0382 Mar, [facility] [place] [facility] [address] [id number] [place] [address] 7656 Mar, [facility] [place] [facility] [address] [id number] [place] [address] 2695 Mar, [facility] [place] [facility] [address] [id number] [place] [address] 4[address] Mar, [facility] [place] [facility] [address] [id number], [place] [address] Mar, [facility] [place] [facility] [address] [id number], [place] [address] 1489 Mar, [facility] [place] [facility] [address] [id number] [place] [address] 1105 Mar, [facility] [place] [facility] [address] [id number], [place] [address] 4862 Mar, [facility] [place] [facility] [address] [id number] [place] [address] 4434 Feb, [facility] [place] [facility] [address] [id number] [place] [address] 4769 31 Feb, 2013 [facility] [place] [facility] [address] [id number] [place] [address] 30 Feb, 2013 [facility] [place] [facility] [address] [id number] [place] [address]- 1027 Feb, [facility] [place] [facility] [address] [id number] [place] [address]- 0252 Feb, [facility] [place] [facility] [address] [id number] [place] [address] 2211 Feb, [facility] [place] [facility] [address] [id number] [place] [address] 3500 Feb, [facility] [place] [facility] [address] [id number] [place] [address]- 2110 Feb, [facility] [place] [facility] [address] [id number] [place] [address] 7450 Feb, [facility] [place] [facility] [address] [id number] [place] [address] 8354 Feb, [facility] [place] [facility] [address] [id number] [place] [address]- 9696 Feb, [facility] [place] [facility] [address] [id number] [place] [address]- 9027 Feb, [facility] [place] [facility] [address] [id number] [place] [address]- 3264 10 Feb, 2013 [facility] [place] [facility] [address] [id number], [place] [address] 85[address] 07 Feb, 2013 [facility] [place] [facility] [address] [id number] [place] [address]- 0089 07 Feb, 2013 [facility] [place] [facility] [address] [id number] [place] [address]- 9862 10 Jan, 2013 [facility] [place] [facility] [address] [id number] [place] [address] 9863 08 Sep, 2013 [facility] [place] [facility] [address] [id number] [place] [address] 7491 Jan, [facility] [place] [facility] [address] [id number] [place] [address]- 2501 Jan, [facility] [place] [facility] [address] [id number] [place] [address]- 1234 Jan, [facility] [place] [facility] [address] [id number] [place] [address]- 8765 Dec, [facility] [place] [facility] [address] [id number] [place] [address]- 8378 Dec, [facility] [place] [facility] [address] [id number] [place] [address]- 8152 Dec, [facility] [place] [facility] [address] [id number] [place] [address]- 5836 Dec, [facility] [place] [facility] [address] [id number] [place] [address]- 8340 Nov, [facility] [place] [facility] [address] [id number] [place] [address]- 4149 Nov, [facility] [place] [facility] [address] [id number] [place] [address]- 5063 Nov, [facility] [place] [facility] [address] [id number] [place] [address]- 2787 Nov, [facility] [place] [facility] [address] [id number] [place] [address]- 6408 Nov, [facility] [place] [facility] [address] [id number] [place] [address]- 0916 Nov, [facility] [place] [facility] [address] [id number] [place] [address] 4617 Nov, [facility] [place] [facility] [address] [id number] [place] [address]- 6363 Nov, [facility] [place] [facility] [address] [id number] [place] [address]- 7944 Nov, [facility] [place] [facility] [address] [id number] [place] [address]- 3547 Nov, [facility] [place] [facility] [address] [id number] [place] [address] 3612 Oct, [facility] [place] [facility] [address] [id number] [place] [address]- 6507 Oct, [facility] [place] [facility] [address] [id number] [place] [address]- 2516 September, [facility] [place] [facility] [address] [id number] [place] [address]- 9825 September, [facility] [place] [facility] [address] [id number] [place] [address]- 9666 September, [facility] [place] [facility] [address] [id number] [place] [address]- 5926 September, [facility] [place] [facility] [address] [id number] [place] [address]- 7796 Aug, [facility] [place] [facility] [address] [id number] [place] [address]- 5607 Aug, [facility] [place] [facility] [address] [id number] [place] [address]- 7366 Aug, [facility] [place] [facility] [address] [id number] [place] [address]- 3819 Jul, [facility] [place] [facility] [address] [id number] [place] [address]- 1082 Jul, [facility] [place] [facility] [address] [id number] [place] [address]- 2791 Jul, [facility] [place] [facility] [address] [id number] [place] [address]- 2379 Jul, [facility] [place] [facility] [address] [id number] [place] [address]- 0707 May, [facility] [place] [facility] [address] [id number] [place] [address]- 7474 17 May, 2013 [facility] [address] [id number] [place] [address]- 1416 May, [facility] [address] [id number] [place] [address]- 6675 15 Mar, 2013 [facility] [address] [id number] [place] [address]- 0243 15 Mar, 2013 [facility] [place] [facility] [address] [id number] [place] [address]- 2482 Mar, [facility] [address] [id number] [place] [address]- 4403 Mar, [facility] [address] [id number] [place] [address]- 9262 16 Feb, 2013 [facility] [address] [id number] [place] [address]- 3469 16 Feb, 2013 [facility] [address] [id number] [place] [address]- 4371 04 Feb, 2013 [facility] [address] [id number] [place] [address]- 6901 16 Jan, 2013 [facility] [address] [id number] [place] [address]- 1636 12 Jan, 2013 [facility] [place] [facility] [address] [id number] [place] [address]- 3798 09 Jan, 2013 [facility] [place] [facility] [address] [id number] [place] [address]- 4197 Dec, [facility] [place] [facility] [address] [id number] [place] [address]- 2740 Dec, [facility] [place] [facility] [address] [id number] [place] [address]- 4340 Dec, [facility] [place] [facility] [address] [id number] [place] [address]- 9325 Dec, [facility] [address] [id number] [place] [address]- 4851 Nov, [facility] [address] [id number] [place] [address]- 5789 Oct, [facility] [address] [id number] [place] [address]- 7548 Oct, [facility] [address] [id number] [place] [address]- 0958 September, [facility] [address] [id number] [place] [address]- 2319 September, [facility] [address] [id number] [place] [address]- 8205 September, [facility] [address] [id number] [place] [address]- 0271 Aug, [facility] [address] [id number] [place] [address]- 9989 Aug, [facility] [address] [id number] [place] [address]- 3166 Aug, [facility] [address] [id number] [place] [address]- 6645 Aug, [facility] [address] [id number] [place] [address]- 7880 Jul, [facility] [place] [facility] [address] [id number] [place] [address]- 5275 Jul, [facility] [place] [facility] [address] [id number] [place] [address]- 1214 Jul, [facility] [place] [facility] [address] [id number] [place] [address]- 4279 15 Jul, 2012 [facility] [place] [facility] [address] [id number] [place] [address]- 4328 14 Jul, 2012 [facility] [place] [facility] [address] [id number] [place] [address]- 1068 Jul, [facility] [address] [id number] [place] [address]- 5650 Jul, [facility] [place] [facility] [address] [id number] [place] [address]- 6746 06 Jun, 2012 [facility] [address] [id number] [place] [address]- 0846 Jun, [facility] [place] [facility] [address] [id number] [place] [address]- 2125 Jun, [facility] [address] [id number] [place] [address]- 2400 Jun, [facility] [address] [id number] [place] [address]- 9679 May, [facility] [address] [id number] [place] [address]- 2952 May, [facility] [address] [id number] [place] [address]- 8878 May, [facility] [address] [id number] [place] [address]- 4774 May, [facility] [address] [id number] [place] [address]- 8547 May, [facility] [address] [id number] [place] [address]- 8521 Apr, [facility] [place] [facility] [address] [id number] [place] [address]- 7550 Apr, [facility] [place] [facility] [address] [id number] [place] [address]- 3713 Mar, [facility] [place] [facility] [address] [id number] [place] [address]- 1758 Mar, [facility] [address] [id number] [place] [address]- 2976 Mar, [facility] [place] [facility] [address] [id number] [place] [address]- 9117 Mar, [facility] [place] [facility] [address] [id number] [place] [address]- 1726 Mar, [facility] [place] [facility] [address] [id number] [place] [address]- 8073 Mar, [facility] [place] [facility] [address] [id number] [place] [address]- 1567 Mar, [facility] [place] [facility] [address] [id number] [place] [address]- 0989 Mar, [facility] [place] [facility] [address] [id number] [place] [address]- 2336 Mar, [facility] [place] [facility] [address] [id number] [place] [address]- 2730 Mar, [facility] [place] [facility] [address] [id number] [place] [address]- 6645 Feb, [facility] [place] [facility] [address] [id number] [place] [address]- 9314 Feb, [facility] [place] [facility] [address] [id number] [place] [address]- 2599 Feb, [facility] [place] [facility] [address] [id number] [place] [address]- 8890 Feb, [facility] [place] [facility] [address] [id number] [place] [address]- 9747 Feb, [facility] [place] [facility] [address] [id number] [place] [address]- 7532 Feb, [facility] [place] [facility] [address] [id number] [place] [address]- 3767 Feb, [facility] [place] [facility] [address] [id number] [place] [address]- 2580 Jan, [facility] [place] [facility] [address] [id number] [place] [address]- 6325 Jan, [facility] [place] [facility] [address] [id number] [place] [address]- 9830 Dec, [facility] [place] [facility] [address] [id number] [place] [address]- 8416 Dec, [facility] [place] [facility] [address] [id number] [place] [address]- 9646 Dec, [facility] [place] [facility] [address] [id number] [place] [address]- 7046 Dec, [facility] [place] [facility] [address] [id number] [place] [address]- 8581 Dec, [facility] [place] [facility] [address] [id number] [place] [address]- 2288 Dec, [facility] [place] [facility] [address] [id number] [place] [address]- 1241 Nov, [facility] [place] [facility] [address] [id number] [place] [address]- 2197 Nov, [facility] [place] [facility] [address] [id number] [place] [address]- 5288 Nov, [facility] [place] [facility] [address] [id number] [place] [address]- 1228 Nov, [facility] [place] [facility] [address] [id number] [place] [address]- 2924 September, [facility] [place] [facility] [address] [id number] [place] [address]- 6626 September, [facility] [place] [facility] [address] [id number] [place] [address]- 2359 September, [facility] [place] [facility] [address] [id number] [place] [address]- 8362 Jul, [facility] [place] [facility] [address] [id number] [place] [address]- 5227 Jun, [facility] [place] [facility] [address] [id number] [address] 0733 Jun, [facility] [id number], [place] [address]- 4268 Jun, [facility] [address], [place] [address]- 2242 Apr, [facility] [id number], [place] [address]- 8937 Mar, [facility] [id number], [place] [address]- 3812 Mar, [facility] [id number] [place] [address]- 6662 Feb, [facility] [address], [place] [address]- 3175 Feb, [facility] [address], [place] [address]- 3841 Feb, [facility] [address], [place] [address]- 0659 Jul, [facility] [address], [place] [address]- 6783 Feb, IMMUNIZATIONS No Known Immunizations SOCIAL HISTORY Never Assessed REASON FOR VISIT f/u PLAN OF CARE Activity Details Follow Up 6 Weeks Reason:Anger VITAL SIGNS MEDICATIONS Medication Instructions Dosage Frequency Start Date End Date Duration Status Lisinopril-Hydrochlorothiazide 20-25 MG Orally Once a day 1 tablet 24h 30 Unknown Proventil HFA 108 (90 Base) MCG/ACT INHALE TWO PUFFS BY MOUTH FOUR TIMES DAILY NEEDED 25 Unknown Clonidine HCl 0.1 MG Orally Twice a day 1 tablet 12h Nov, 30 day(s) Unknown Folic Acid 1 MG TAKE ONE TABLET BY MOUTH ONCE DAILY (DO NOT TAKE ON DAYS YOU TAKE METHOTREXATE) 30 Unknown PredniSONE 20 MG Orally Once a day 1 tablet 24h 30 Unknown Potassium Chloride Marie ER 20 MEQ Orally Once a day 1 tablet with food 24h Unknown Benzonatate 100 mg Orally Three times a day 1 capsule as needed 8h Mar, Unknown Actos 30 MG Orally Once a day 1 tablet 24h Jul, 30 Unknown Cymbalta 60 mg Orally Once a day 1 capsule 24h Apr, 30 day(s) Unknown Cymbalta 30 MG Orally Once a day 1 capsule 24h Apr, 07 days Unknown Nyamyc 326357 UNIT/GM APPLY TO AFFECTED AREA 12h 5 Unknown Omeprazole 20 mg Orally Once a day 1 capsule 24h 30 Unknown Guaifenesin 400 mg Orally every 4 hrs 1 tablet as needed 4h Mar, Unknown Glucocard Expression Monitor w/Device as directed Nov, Unknown Lasix 20 mg Orally Once a day 1 tablet 24h 30 Unknown Victoza 0.6 mg/0.1 mL (18 mg/3 mL) Subcutaneous Once a day inject 0.3 milliliter (1.8 mg) by subcutaneous route once daily 24h Dec, 90 days Unknown Spironolactone 25 MG Orally Once a day 1 tablet 24h Unknown PredniSONE 20 MG Orally Once a day 1 tablet 24h Apr, May, 30 day(s) Unknown Methotrexate 2.5 MG Orally 1 time per week 6 28 Unknown Glucocard Expression Test - as directed 24h Nov, Unknown Loratadine 10 mg Orally Once a day TAKE ONE TABLET BY MOUTH DAILY 24h 30 Unknown RESULTS No Results PROCEDURES Procedure Date Ordered Result Body Site Psychotherapy, patient &/family, 30 minutes, established patient May 26, 2017 INSTRUCTIONS MEDICATIONS ADMINISTERED No Known Medications MEDICAL (GENERAL) HISTORY Type Description Date Medical History type II diabetes-dx'd 12/2010 Medical History dysfunctional uterine bleeding--endometrial bx 12/2010 Medical History asthma Medical History hypertension Medical History obesity Medical History anxiety Medical History autoimmune disease Surgical History x1 Hospitalization History child Hospitalization History Asthma
--- OUTSIDE RECORDS SUMMARY | 2018-02-03 00:03 | XMS REPORT ---
Author Author ROSANA CRUMP [facility] eClinical[employer] Address Unknown Phone Unavailable Care Team Providers Care Lesson Instructor Name Role Phone ROSANA CRUMP CP Unavailable [...] Active Problem Lupus erythematosus L93.0 Active Assessment Adjustment disorder with mixed anxiety and depressed mood F43.23 Active Problem Mood disorder F39 Active Problem Menopause Z78.0 Active Medications No Known Medications Procedures Procedure Coding System Code Date Psychotherapy, patient &/family, 30 minutes, established patient CPT-4 69561 Jun 04, 2015 Results No Known Results Summary Purpose eClinicalWorks Submission
--- OUTSIDE RECORDS SUMMARY | 2018-02-03 00:03 | XMS REPORT ---
Author MACY Wadsworth [facility] eClinicalWorks Address Unknown Phone Unavailable Care Team Providers Care Telephone Plant Power Operator Name Role Phone MACY TAMAYO CP Unavailable Allergies, Adverse Reactions, Alerts Substance Reaction Event Type Fluarix Quadrivalent vomiting Drug Allergy Zoloft makes very angry Drug Allergy Fluarix vomiting Drug Allergy Aspirin rash Drug Allergy Latex, Natural Rubber rash Non Drug Allergy Problems Problem Type Condition Code Onset Dates Condition Status Assessment Diabetes type 2, controlled E11.9 Active Problem Diabetes type 2, controlled E11.9 Active Problem Allergic rhinitis due to pollen J30.1 Active Problem Lupus erythematosus L93.0 Active Assessment Anxiety F41.9 Active Assessment Dermatomyositis M33.90 Active Problem Mood disorder F39 Active Problem Menopause Z78.0 Active Medications Medication Code System Code Instructions Start Date End Date Status Dosage Ativan [facility] [address]-15 1 MG Twice a day PRN for anxiety July 30, 2014 1 tablet by Oral route 2 times per day PRN anxiety Potassium Chloride Marie ER [facility] 16208684808 10 MEQ TAKE TWO TABLETS BY MOUTH ONCE DAILY ProAir HFA [facility] [address]-73 90 mcg/actuation Mar 19, 2014 2 puffs by Inhalation route 4 times per day Sertraline HCl [facility] [address]-15 25 MG Orally Once a day Jun 17, 2015 1 tablet Tessalon Perles [facility] [address]-44 200 mg Orally Three times a day prn cough Jun 04, 2015 1 capsule as needed Methotrexate [facility] [address]-29 2.5 MG Orally 1 time per week 6 PredniSONE [facility] [address]-69 20 MG Orally Once a day Jun 17, 2015 1 tablet Diclofenac Sodium [facility] [address]-37 50 MG Orally Twice a day October 08, 2014 1 tablet Lisinopril-Hydrochlorothiazide [facility] 40606245643 20-25 MG Orally Once a day 1 tablet Nyamyc [facility] 19025926742 671841 UNIT/GM APPLY TO AFFECTED AREA THREE TIMES DAILY NEEDED FOR YEAST INFECTION. Omeprazole [facility] 83109646617 20 MG Orally Once a day 1 capsule Folic Acid [facility] 56170663776 1 MG TAKE ONE TABLET BY MOUTH DAILY ( DO NOT TAKE ON DAYS YOU TAKE METHOTREXATE) Loratadine [facility] 72406474363 10 MG TAKE ONE TABLET BY MOUTH DAILY Victoza [facility] [address]-97 0.6 mg/0.1 mL (18 mg/3 mL) Jan 13, 2012 inject 0.3 milliliter (1.8 mg) by subcutaneous route once daily Procedures Procedure Coding System Code Date Office Visit, Est Pt., Level 3 CPT-4 92253 Jun 17, 2015 GLYCATED HEMOGLOBIN TEST CPT-4 51526 Jun 17, 2015 Vital Signs Date/Time: Jun 17, 2015 Temperature 98.9 F Weight 234.9 lbs Height 62 in BMI 42.96 Index Blood Pressure Diastolic 76 mmHg Blood Pressure Systolic 124 mmHg Cardiac Monitoring Heart Rate 84 bpm Results Name Result Date Reference Range Unit Abnormality Flag A1C (IN HOUSE) ----A1C IN HOUSE 7.8 20150617 4.3 - 5.6 % ----Previous A1c 7.1 20150617 ----Lot [id number] ----Exp date 20150617 Summary Purpose [employer] Submission
--- OUTSIDE RECORDS SUMMARY | 2018-02-03 00:03 | XMS REPORT ---
Author MACY Wadsworth Organization [employer] Address Unknown Phone Unavailable Care Team Providers Care Molder Labels Name Role Phone MACY TAMAYO CP Unavailable [...] disorder 296.90 Active Medications No Known Medications Results No Known Results Summary Purpose [employer] Submission
--- OUTSIDE RECORDS SUMMARY | 2018-02-03 00:03 | XMS REPORT ---
Author Author ROSANA CRUMP Organization [facility] Address [address] [place] [address] Care Team Providers Care Engineering Professionals Name Role Phone ROSANA CRUMP Unavailable PROBLEMS Type Condition ICD9-CM Code JPY10-TQ Code Onset Dates Condition Status SNOMED Code Problem Menopause Z78.0 Active 153058746 Problem Lupus erythematosus L93.0 Active 710874383 Problem Other chronic pain G89.29 Active 48491432 Problem Anxiety F41.9 Active 89200750 Problem Diabetes type 2, controlled E11.9 Active 18677975 Problem Mood disorder F39 Active 84584628 Problem Osteoarthritis of right knee, unspecified osteoarthritis type M17.9 Active 812609830 Problem Allergic rhinitis due to pollen J30.1 Active 16922061 ALLERGIES Substance Reaction Event Type Date Status Fluarix Quadrivalent vomiting Drug Allergy Jul, Active Zoloft makes very angry Drug Allergy Jul, Active Fluarix vomiting Drug Allergy Jul, Active Aspirin rash Drug Allergy Jul, Active Latex, Natural Rubber rash Non Drug Allergy Jul, Active SOCIAL HISTORY Never Assessed PLAN OF CARE Activity Details Follow Up 4 Weeks Reason:Anxiety VITAL SIGNS MEDICATIONS Unknown Medications RESULTS No Results PROCEDURES Procedure Date Ordered Result Body Site Psychotherapy, patient &/family, 30 minutes, established patient August 05, 2016 IMMUNIZATIONS No Known Immunizations MEDICAL (GENERAL) HISTORY Type Description Date Medical History type II diabetes-dx'd 12/2010 Medical History dysfunctional uterine bleeding--endometrial bx 12/2010 Medical History asthma Medical History hypertension Medical History obesity Medical History anxiety Medical History autoimmune disease Surgical History x1 Hospitalization History child Hospitalization History Asthma
--- OUTSIDE RECORDS SUMMARY | 2018-02-03 00:03 | XMS REPORT ---
Author Author MACY TAMAYO Organization [employer] Address Unknown Phone Unavailable Care Team Providers Care Exterior Door Installer Name Role Phone MACY TAMAYO CP Unavailable Allergies No Known Allergies Problems Problem Type Condition Code Onset Dates Condition Status Problem Diabetes type 2, controlled E11.9 Active Problem Allergic rhinitis due to pollen J30.1 Active Problem Lupus erythematosus L93.0 Active Problem Mood disorder F39 Active Problem Menopause Z78.0 Active Medications No Known Medications Vital Signs Date/Time: Mar 16, 2015 Temperature 98.0 F Weight 235 lbs Height 62 in BMI 42.98 Index Blood Pressure Diastolic 76 mmHg Blood Pressure Systolic 122 mmHg Cardiac Monitoring Heart Rate 90 bpm Results No Known Results Summary Purpose [employer]ClinicalWorks Submission
--- OUTSIDE RECORDS SUMMARY | 2018-02-03 00:03 | XMS REPORT ---
Author Author ROSANA CRUMP Organization [facility] [place] Address [address] [place] [address] Care Team Providers Care Beauty Operator Apprentice Name Role Phone ROSANA CRUMP Unavailable PROBLEMS Type Condition ICD9-CM Code [id number] Code Onset Dates Condition Status SNOMED Code Problem Mood disorder F39 Active 74407893 Problem Menopause Z78.0 Active 710548569 Problem Other chronic pain G89.29 Active 48054979 Problem Anxiety F41.9 Active 75265023 Problem Diabetes type 2, controlled E11.9 Active 55333605 Problem Allergic rhinitis due to pollen J30.1 Active 61054193 Problem Osteoarthritis of right knee, unspecified osteoarthritis type M17.9 Active 870872976 Problem Lupus erythematosus L93.0 Active 874503390 ALLERGIES Substance Reaction Event Type Date Status Fluarix Quadrivalent vomiting Drug Allergy Apr, Active Zoloft makes very angry Drug Allergy Apr, Active Fluarix vomiting Drug Allergy Apr, Active Aspirin rash Drug Allergy Apr, Active Latex, Natural Rubber rash Non Drug Allergy Apr, Active SOCIAL HISTORY No smoking Hx information available PLAN OF CARE Activity Details Follow Up 4 Weeks Reason:Anxiety and stress VITAL SIGNS MEDICATIONS Unknown Medications RESULTS No Results PROCEDURES Procedure Date Ordered Related Diagnosis Body Site Psychotherapy, patient &/family, 30 minutes, established patient May 06, 2016 IMMUNIZATIONS No Known Immunizations
--- OUTSIDE RECORDS SUMMARY | 2018-02-03 00:04 | XMS REPORT ---
Author Author MACY TAMAYO Organization [facility] [place] Address [address] [place] [address] Care Team Providers Care Program Review Director Name Role Phone MACY TAMAYO Unavailable PROBLEMS Type Condition ICD9-CM Code [id number] Code Onset Dates Condition Status SNOMED Code Problem Plantar warts B07.0 Active 84104495 Problem Lumbago with sciatica, left side M54.42 Active 535131270 Problem Plantar wart of both feet B07.0 Active [id number] Problem Morbid (severe) obesity due to excess calories E66.01 Active 162869744 Problem Dermatomyositis M33.90 Active 902367379 Problem Tachycardia with heart rate 121-140 beats per minute R00.0 Active 5041754 Problem Controlled type 2 diabetes mellitus without complication, without long -term current use of insulin E11.9 Active 245104345 Problem Enlarged thyroid gland E04.9 Active 3281185 Problem Body mass index (BMI) of 45.0-49.9 in adult Z68.42 Active 889110118 Problem Menopause Z78.0 Active 745423343 Problem Allergic rhinitis due to pollen J30.1 Active 70402349 Problem Osteoarthritis of right knee, unspecified osteoarthritis type M17.9 Active 061602836 Problem Anxiety F41.9 Active 86327200 Problem Mood disorder F39 Active 13416041 Problem Other chronic pain G89.29 Active 63766670 Problem Diabetes type 2, controlled E11.9 Active 25347487 Problem Arthritis M19.90 Active 2773643 ALLERGIES Substance Reaction Event Type Date Status Fluarix Quadrivalent vomiting Drug Allergy Jan, Active Zoloft makes very angry Drug Allergy Jan, Active Fluarix vomiting Drug Allergy Jan, Active Aspirin rash Drug Allergy Jan, Active Latex, Natural Rubber rash Non Drug Allergy Jan, Active ENCOUNTERS Encounter Location Date Diagnosis [facility] [place] [address] [facility] [id number] [address] Aug, Mood disorder F39 [place] [address] 43951- 4098 16 Aug, 2017 Other chronic pain G89.29 ; Controlled type 2 diabetes mellitus without complication, without long-term current use of insulin E11.9 ; Low back pain M54.5 and Tinea corporis B35.4 [place] [address] 17325- 5852 Aug, Mood disorder F39 and Anxiety F41.9 [place] [address] 41617- 1025 Aug, Mood disorder F39 and Anxiety F41.9 [place] [address] 02677- 2510 Jul, [facility] [place] [address] [address] Jul, Scabies B86 and BMI 45.0-49.9, adult Z68.42 [place] [address] 90924- 3942 Jul, [place] [address] 12603- 7138 Jul, Mood disorder F39 and Anxiety F41.9 [place] [address] 66748- 7091 Jul, [facility] [place] [address] 36877 [address] 27 Jun, 2017 Bronchitis J40 ; Dark urine R82.99 and BMI 45.0-49.9, adult Z68.42 [place] [address] 8[address]01- 9611 14 Jun, 2017 Acute pain of right shoulder M25.511 and Acute pain of right knee M25.561 [place] [address] 6[address]60- 2382 May, BMI 40.0-44.9, adult Z68.41 ; Controlled type 2 diabetes mellitus without complication, without long-term current use of insulin E11.9 ; Muscle cramping R25.2 ; Hot flashes R23.2 ; Mood disorder F39 ; Anxiety F41.9 and Morbid (severe) obesity due to excess calories E66.[address] [place] [address] 86420- 6875 May, BMI 40.0-44.9, adult Z68.41 ; Controlled type 2 diabetes mellitus without complication, without long-term current use of insulin E11.9 ; Muscle cramping R25.2 and Hot flashes R23.2 [place] [id number] [place] [address] 46331- 1780 May, Tachycardia with heart rate 121-140 beats per minute R00.0 ; Morbid (severe) obesity due to excess calories E66.01 ; Diabetes type 2, controlled E11.9 and Enlarged thyroid gland E04.9 [place] [id number] [place] [address] 56107- 8234 25 May, 2017 Encounter for well woman [...] Dysuria R30.0 and Screening breast examination Z12.31 [address] [place] [address] 31796- 8958 Apr, Mood disorder F39 ; Other chronic pain G89.29 and Anxiety F41.9 [place] [id number] [place] [address] 93712- 0263 Apr, Lumbago with sciatica, left side M54.42 and Other chronic pain G89.29 [place] [id number] [place] [address] 77781- 5435 Apr, Lupus erythematosus L93.0 [facility] [place] [address] [place] [id number] [place] [address] 12331- 7784 Mar, Plantar wart of both feet B07.0 [facility] [place] [address] [place] [id number] [place] [address] 80319- 6798 Mar, Lupus erythematosus L93.0 and Sinus drainage J34.89 [facility] [place] [address] [place] [id number] [place] [address] 78118- 0477 Mar, Mood disorder F39 ; Other chronic pain G89.29 and Anxiety F41.9 [facility] [place] [address] 51215- 3412 Mar, Mood disorder F39 ; Arthritis M19.90 and Plantar warts B07.0 [facility] [place] [address] [place] [id number] [place] [address] 91311- 8894 Feb, Lupus erythematosus L93.0 [facility] [place] [address] [place] [id number] [place] [address] 02620- 8969 Feb, Other chronic pain G89.29 [facility] [place] [address] [place] [id number] [place] [address] 72400- 6357 Feb, Mood disorder F39 and Anxiety F41.9 [facility] [place] [address] [place] [id number] [place] [address] 96993- 1030 Jan, [facility] [place] [address] [place] [id number] [place] [address] 08875- 0018 Jan, Mood disorder F39 [facility] [place] [address] [place] [id number] [place] [address] 60201- 2336 Dec, Nail, ingrown L60.0 [facility] [place] [address] [place] [id number] [place] [address] 96817- 6739 Dec, Nail, ingrown L60.0 [facility] [place] [address] [place] [id number] [place] [address] 28574- 4023 Nov, Mood disorder F39 and Anxiety F41.9 [facility] [place] [address] [place] [id number] [place] [address] 86521- 0164 Nov, Sinus drainage J34.89 ; Hot flashes R23.2 ; Anxiety F41.9 and Diabetes type 2, controlled E11.9 [facility] [place] [address] [place] [id number] [place] [address] 58087- 3402 Nov, Nail, ingrown L60.0 [facility] [place] [address] [place] [id number] [place] [address] 08333- 0129 Oct, Anxiety F41.9 and Mood disorder F39 [facility] [place] [address] [place] [id number] [place] [address] 19206- 9431 Oct, Nail, ingrown L60.0 and Anxiety F41.9 [facility] [place] [address] [place] [id number] [place] [address] 89434- 7253 Oct, Lupus erythematosus L93.0 [facility] [place] [address] [place] [id number] [place] [address] 07181- 1987 September, [facility] [place] [address] [place] [id number] [place] [address] 93795- 0138 September, [facility] [place] [address] [place] [id number] [place] [address] 53558- 7871 September, Lupus erythematosus L93.0 [facility] [place] [address] [place] [id number] [place] [address] 19127- 1870 Aug, [facility] [place] [address] [place] [id number] [place] [address] 65196- 0435 Aug, Mood disorder F39 and Anxiety F41.9 [facility] [place] [address] [place] [id number] [place] [address] 24082- 1634 Aug, Lupus erythematosus L93.0 ; Diabetes type 2, controlled E11.9 and Localized edema R60.0 [facility] [place] [address] [place] [id number] [place] [address] 80096- 2624 05 Aug, 2016 [place] [address] [place] [id number] [place] [address] 32274- 0439 Jul, Anxiety F41.9 and Mood disorder F39 [place] [address] [place] [id number] [place] [address] 44352- 8213 10 Jul, 2016 Diabetes type 2, controlled E11.9 [place] [address] 09710- 8740 Jun, Anxiety F41.9 [place] [address] [place] [id number] [place] [address] 94312- 6932 May, [place] [address] [place] [id number] [place] [address] 96401- 2114 May, [place] [address] [place] [id number] [place] [address] 17561- 1013 May, Nausea R11.0 ; Other chronic pain G89.29 and Pain in right knee M25.561 [place] [address] [place] [id number] [place] [address] 27707- 0930 May, [place] [address] [place] [id number] [place] [address] 41641- 7335 Apr, Tear of medial meniscus of right knee, current, unspecified tear type, subsequent encounter S83.241D and Tear of lateral meniscus of right knee, current, unspecified tear type, subsequent encounter S83.281D [place] [address] [place] [id number] [place] [address] 72735- 0841 Apr, Anxiety F41.9 and Mood disorder F39 [place] [address] [place] [id number] [place] [address] 11848- 3330 Apr, Anxiety F41.9 [place] [address] [place] [id number] [place] [address] 44715- 4212 Apr, [place] [address] [place] [id number] [place] [address] 32350- 6092 Mar, [facility] [place] [address] [place] [id number] [place] [address] 33716- 1947 Mar, Lupus erythematosus L93.0 and Diabetes type 2, controlled E11.9 [facility] [place] [address] [place] [id number] [place] [address] 00028- 2601 Mar, Mood disorder F39 [facility] [place] [address] [place] [id number] [place] [address] 36254- 9711 Mar, Tear of lateral meniscus of right knee, current, unspecified tear type, initial encounter S83.281A and Osteoarthritis of right knee, unspecified osteoarthritis type M17.9 [facility] [place] [address] [place] [id number] [place] [address] 88877- 5092 Mar, [facility] [place] [address] [place] [id number] [place] [address] 04004- 5294 Feb, Mood disorder F39 [facility] [place] [address] [place] [id number] [place] [address] 55588- 4943 Feb, Rash R21 [facility] [place] [address] [place] [id number] [place] [address] 46275- 8286 Feb, [facility] [place] [address] [place] [id number] [place] [address] 63721- 7021 Jan, Other chronic pain G89.29 and Muscle spasm M62.838 [facility] [place] [address] [place] [id number] [place] [address] 34373- 8844 Jan, Mood disorder F39 [facility] [place] [address] [place] [id number] [place] [address] 53983- 7599 Jan, Pain in right knee M25.561 ; Other chronic pain G89.29 and Muscle spasm M62.838 [facility] [place] [address] [place] [id number] [place] [address] 81653- 4401 Dec, [facility] [place] [address] [place] [id number] [place] [address] 88584- 6663 Dec, [facility] [place] [address] [address]- 4051 Nov, [place] [address] [place] [id number] [place] [address] 95031- 5361 Nov, Mood disorder F39 [place] [address] [place] [id number] [place] [address] 92768- 9289 Nov, Diabetes type 2, controlled E11.9 ; Bronchitis J40 ; Edema, unspecified type R60.9 ; Weight gain R63.5 and Right knee pain, unspecified chronicity M25.561 [place] [address] [place] [id number] [place] [address] 18727- 9085 Oct, Mood disorder F39 [place] [address] [place] [id number] [place] [address] 63985- 4990 Oct, Lupus erythematosus L93.0 and Bilateral edema of lower extremity R60.0 [place] [address] [place] [id number] [place] [address] 97623- 5205 Oct, Mood disorder F39 and Anxiety F41.9 [place] [address] [place] [id number] [place] [address] 73705- 3848 September, Mood disorder F39 ; Anxiety F41.9 and Anger reaction R45.4 [place] [address] [place] [id number] [place] [address] 39384- 5665 September, Diabetes type 2, controlled E11.9 ; Edema, unspecified type R60.9 and Fatigue, unspecified type R53.83 [place] [id number] [place] [address] 67219- 9504 Aug, Mood disorder F39 and Generalized anxiety disorder F41.1 [place] [address] [place] [id number] [place] [address] 95015- 3969 Aug, Diabetes type 2, controlled E11.9 ; Sinusitis J32.9 and Mood disorder F39 [place] [address] [place] [id number] [place] [address] 54013- 4033 Aug, Lupus erythematosus L93.0 [facility] [place] [address] [address]- 2299 14 Aug, 2015 [facility] [place] [address] [place] [id number] [place] [address] 07063- 1246 07 Aug, 2015 [facility] [place] [id number] [place] [address] 57356- 4114 Jul, Diabetes type 2, controlled E11.9 [facility] [place] [address] [place] [id number] [place] [address] 12438- 2617 Jul, Mood disorder F39 and Depression F32.9 [facility] [place] [address] [place] [id number] [place] [address] 46190- 1982 Jul, Lupus erythematosus L93.0 and Diabetes type 2, controlled E11.9 [facility] [place] [address] [place] [id number] [place] [address] 54483- 9065 Jul, Mood disorder F39 and Anxiety F41.9 [facility] [place] [address] [place] [id number] [place] [address] 82144- 5162 Jul, [facility] [place] [address] [place] [id number] [place] [address] 26443- 6869 Jul, [facility] [place] [id number] [place] [address] 78586- 1512 Jun, Mood disorder F39 and Anxiety F41.9 [facility] [place] [address] [place] [id number] [place] [address] 12534- 2997 Jun, Mood disorder F39 [facility] [place] [id number] [place] [address] 16516- 4442 18 Jun, 2015 [facility] [place] [address] [place] [id number] [place] [address] 46905- 5070 15 Jun, 2015 [facility] [place] [address] [address]- 5662 08 Jun, 2015 Mood disorder F39 [facility] [place] [address] [place] [id number] [address]- 9350 04 Jun, 2015 [facility] [place] [address] [place] [id number] [address]- 5896 May, [facility] [place] [id number] [place] [address] 46192- 5559 May, [facility] [place] [address] [place] [id number] [place] [address] 80472- 7098 May, [facility] [place] [address] [place] [id number] [place] [address] 68624- 1374 May, [facility] [place] [address] [place] [id number] [place] [address] 24807- 7180 May, Anxiety F41.9 ; Dermatomyositis M33.90 and Diabetes type 2, controlled E11.9 [facility] [id number] [place] [address] 74012 -0495 May, Sinusitis J32.9 and Cough R05 [facility] [place] [address] [place] [id number] [place] [address] 71691- 5287 May, Mood disorder F39 [facility] [place] [address] [place] [id number] [place] [address] 99200- 0244 May, Adjustment disorder with mixed anxiety and depressed mood F43.23 [facility] [place] [address] [place] [address]- 1584 Apr, [facility] [place] [address] [place] [id number] [place] [address] 69983- 4141 Apr, [facility] [place] [id number] [place] [address] 44388- 5313 Apr, Generalized anxiety disorder F41.1 and Mood disorder F39 [facility] [place] [id number] [place] [address] 09815- 3318 Mar, [facility] [place] [id number] [place] [address] 71130- 1105 Mar, [facility] [place] [address] [place] [id number] [address]- 5532 Mar, [facility] [place] [address] [place] [id number] [place] [address] 08052- 6551 Mar, Mood disorder F39 [facility] [place] [address] [place] [id number] [place] [address] 53124- 3291 Feb, [facility] [place] [address] [place] [id number] [place] [address] 74137- 0304 Feb, Diabetes E11.9 and Bronchitis J40 [facility] [place] [address] [place] [id number] [place] [address] 10329- 5150 Feb, [facility] [place] [address] [place] [id number] [place] [address] 01984- 8346 Feb, [facility] [place] [address] [place] [id number] [place] [address] 63230- 7253 Feb, Major depression, recurrent, full remission F33.42 and KELLY ( generalized anxiety disorder) F41.1 [facility] [place] [address] [place] [id number] [place] [address] 51620- 9318 Feb, [facility] [place] [address] [place] [id number] [place] [address] 96193- 9290 Feb, Single major depressive episode, in partial or unspecified remission F32.5 [facility] [place] [id number] [place] [address] 21899- 3474 Jan, Fatigue 780.79 [facility] [place] [address] [place] [id number] [place] [address] 67303- 1695 Jan, [facility] [place] [address] [place] [id number] [place] [address] 68070- 7671 Jan, Diabetes with other specified manifestations, type II or unspecified type, not stated as uncontrolled 250.80 [facility] [place] [address] [place] [id number] [place] [address] 58719- 2880 Jan, [facility] [place] [id number] [place] [address] 12962- 4561 Dec, Hot flashes 627.2 ; Memory loss 780.93 and Joint pain 719.40 [address] [id number] [place] [address] 30620- 9335 Dec, Major depression, recurrent 296.30 ; Generalized anxiety disorder 300.02 ; Adjustment disorder with depressed mood 309.0 and No condition on [place] II V71.[address] [address]- [address] Dec, [address] [address]- [address] Nov, Cognitive and neurobehavioral dysfunction 294.9 ; Major depressive disorder, recurrent episode, moderate degree 296.32 and Anxiety state , unspecified 300.[address] [address]- [address] Nov, [address] [address]- [address]7 Nov, Bronchitis 490 and Diabetes with other specified manifestations, type II or unspecified type, not stated as uncontrolled 250.80 [address] [place] [id number] [place] [address] 33458- 6982 Nov, Major depressive disorder, recurrent episode, moderate 296.32 and Anxiety disorder, unspecified 300.00 [address] [id number] [place] [address] 98860- 0762 Nov, Anxiety, generalized 300.02 ; Intermittent explosive disorder 312.34 ; No condition on [place] II V71.09 and No condition on axis III V71.09 [address] [id number] [place] [address] 41193- 1743 Oct, Diabetes with other specified manifestations, type II or unspecified type, not stated as uncontrolled 250.80 ; Urinary tract infection, site not specified 599.0 and Bronchitis [id number] [place] [address] 94160- 8385 Oct, Intermittent explosive disorder 312.34 ; Bipolar 1 disorder , depressed, moderate 296.52 ; Major depression, chronic 296.20 ; No condition on [place] II V71.09 and No condition on axis III V71.09 [place] [id number] [place] [address] [id number] Oct, Major depressive disorder, recurrent episode, moderate 296.32 ; Anxiety state 300.00 ; Cognitive decline 294.9 and No condition on [place] II V71.09 [place] [id number] [place] [address] 32023- 8281 Oct, [address] [id number] [place] [address] 42454- 8969 Oct, Major depressive disorder, recurrent episode, moderate 296.32 ; Anxiety disorder, unspecified 300.00 and Persistent disorder of initiating or maintaining sleep 307.42 [address] [id number] [place] [address] 93108- 1890 September, Diabetes with other specified manifestations, type II or unspecified type, not stated as uncontrolled 250.80 ; Memory loss 780.93 and Cognitive complaints 799.59 [address] [id number] [place] [address] 00076- 2617 September, No condition on [place] II V71.09 ; Major depression, recurrent 296.30 and Persistent mood [affective] disorder, unspecified 296.90 01 [id number] [place] [address]- 2220 Aug, [place] [address] [place] [id number] [place] [address]- 1316 Aug, [place] [address] [id number] [place] [address] 59139- 2984 Aug, [place] [id number] [place] [address] [id number]- 2560 Jul, [place] [address] [id number] [place] [address] 35816- 2715 Jul, [id number] [place] [address] 2624 04 Jul, 2014 [facility] [place] [facility] [address] [id number] [place] [address]- 7056 Jul, 2014 [facility] [place] [facility] [address] [id number] [place] [address]- 9775 Jul, 2014 [facility] [place] [facility] [address] [id number] [place] [address]- 2832 Jun, 2014 [facility] [place] [facility] [address] [id number] [place] [address]- 4447 Jun, 2014 [facility] [place] [facility] [address] [id number] [place] [address]- 9085 Jun, 2014 [facility] [place] [facility] [address] [facility] [id number] [place] [address]- 4580 Jun, 2014 [facility] [place] [facility] [address] [facility] [id number] [place] [address]- 9343 Jun, 2014 [facility] [place] [facility] [address] [facility] [id number] [place] [address]- 9182 Jun, 2014 [facility] [place] [facility] [address] [facility] [id number] [place] [address]- 5061 Jun, 2014 [facility] [place] [facility] [address] [facility] [id number], [place] [address]- 9423 Jun, 2014 [facility] [place] [facility] [address] [facility] [id number], [place] [address]- 6908 Jun, 2014 [facility] [place] [facility] [address] [facility] [id number] [place] [address]- 0905 Jun, 2014 [facility] [place] [facility] [address] [facility] [id number] [place] [address]- 9888 Jun, 2014 [facility] [place] [facility] [address] [facility] [id number], [place] [address]- 5483 Jun, 2014 [facility] [place] [facility] [address] [facility] [id number], [place] [address]- 1487 Jun, [facility] [address] [id number] [place] [address]- 1613 May, [facility] [place] [facility] [address] [id number] [place] 3214 May, [facility] [address] [facility] [id number] [place] [address]- 1771 Apr, [facility] [place] [facility] [address] [id number] [place] [address]- 9661 Apr, [facility] [place] [facility] [address] [id number] [place] [address]- 2651 Apr, [facility] [place] [facility] [address] [id number] [place] [address]- 3243 Apr, [facility] [address] [id number] [place] [address]- 6231 Apr, [facility] [place] [facility] [address] [id number] [place] [address]- 2918 Apr, [facility] [place] [facility] [address] [id number] [place] [address]- 1284 Apr, [facility] [place] [facility] [address] [facility] [id number] [place] [address]- 9616 Apr, [facility] [place] [facility] [address] [id number] [place] [address]- 5267 Apr, [facility] [place] [facility] [address] [id number] [place] [address]- 7842 Apr, [facility] [place] [facility] [address] [id number] [place] [address]- 9673 Apr, [facility] [place] [facility] [address] [id number] [place] [address]- 6611 Apr, [facility] [place] [facility] [address] [facility] [id number] [place] [address]- 7810 Apr, [facility] [place] [facility] [address] [id number] [place] [address]- 3316 Apr, [facility] [place] [facility] [address] [id number] [place] [address]- 2012 Apr, [facility] [place] [facility] [address] [id number] [place] [address]496 Apr, [facility] [place] [facility] [address] [id number] [place] [address]- 7382 Apr, [facility] [place] [facility] [address] [id number] [place] [address]- 6948 Apr, [facility] [place] [facility] [address] [id number] [place] [address]- 2633 Apr, [facility] [place] [facility] [address] [id number] [place] [address]- 7093 Apr, [facility] [place] [facility] [address] [id number] [place] [address]- 3229 Mar, [facility] [place] [facility] [address] [id number] [place] [address]- 9611 Mar, [facility] [place] [facility] [address] [id number] [place] [address]- 9018 Mar, [facility] [place] [facility] [address] [id number] [place] [address]- 3559 Mar, [facility] [place] [facility] [address] [id number] [place] [address]- 0225 Mar, [facility] [place] [facility] [address] [id number] [place] [address]- 2516 Mar, [facility] [place] [facility] [address] [id number] [place] [address]- 6490 Mar, [facility] [place] [facility] [address] [id number] [place] [address]- 7326 Mar, [facility] [place] [facility] [address] [id number] [place] [address]- 0382 Mar, [facility] [place] [facility] [address] [id number] [place] [address]- 6734 Mar, [facility] [place] [facility] [address] [id number] [place] [address]- 3113 Mar, [facility] [place] [facility] [address] [id number] [place] [address]- 2619 Mar, [facility] [place] [facility] [address] [id number] [place] [address]- 5205 Mar, [facility] [place] [facility] [address] [id number] [place] [address]- 1001 Feb, [facility] [place] [facility] [address] [id number] [place] [address]- 1909 Feb, [facility] [place] [facility] [address] [id number] [place] [address]- 2129 Feb, [facility] [place] [facility] [address] [id number], [place] [address]- 3771 Feb, [facility] [place] [facility] [address] [id number] [place] [address]- 7910 Feb, [facility] [place] [facility] [address] [id number], [place] [address]- 9000 Feb, [facility] [place] [facility] [address] [id number], [place] [address]- 1974 Feb, [facility] [place] [facility] [address] [id number], [place] [address]- 4006 Feb, [facility] [place] [facility] [address] [id number] [place] [address]- 6241 Feb, [facility] [place] [facility] [address] [id number], [place] [address]- 1973 Feb, [facility] [place] [facility] [address] [id number] 4863 Feb, [facility] [place] [facility] [address] [id number] [place] [address]- 5984 10 Feb, 2014 [facility] [place] [facility] [address] [id number] [place] [address]- 7839 10 Feb, 2014 [facility] [place] [facility] [address] [id number] [place] [address]- 0741 Feb, [facility] [place] [facility] [address] [id number] [place] [address]- 7086 07 Feb, 2014 [facility] [place] [facility] [address] [id number] [place] [address]- 5626 Jan, [facility] [place] [facility] [address] [id number] [place] [address]- 7066 08 Jan, 2014 [facility] [place] [facility] [address] [id number] [place] [address]- 3605 Jan, [facility] [place] [facility] [address] [id number] [place] [address]- 7574 Jan, [facility] [place] [facility] [address] [id number] [place] [address]- 4521 Jan, [facility] [place] [facility] [address] [id number] [place] [address]- 7662 Dec, [facility] [place] [facility] [address] [id number] [place] [address]- 9279 Dec, [facility] [place] [facility] [address] [id number] [place] [address]- 1808 Dec, [facility] [place] [facility] [address] [id number] [place] [address]- 5849 Dec, [facility] [place] [facility] [address] [id number] [place] [address]- 7774 Nov, [facility] [place] [facility] [address] [id number] [place] [address]- 4636 Nov, [facility] [place] [facility] [address] [id number] [place] [address]- 5979 Nov, [facility] [place] [facility] [address] [id number] [place] [address]- 5351 Nov, 2013 [facility] [place] [facility] [address] [id number] [place] [address]- 9950 Nov, [facility] [place] [facility] [address] [id number] [place] [address]- 4708 Nov, 2013 [facility] [place] [facility] [address] [id number] [place] [address]- 4530 Nov, [facility] [place] [facility] [address] [id number] [place] [address]- 3601 Nov, [facility] [place] [facility] [address] [id number] [place] [address]- 7461 Nov, [facility] [place] [facility] [address] [id number] [place] [address]- 0302 Nov, [facility] [place] [facility] [address] [id number] [place] [address]- 7306 Oct, [facility] [place] [facility] [address] [id number] [place] [address]- 4910 Oct, [facility] [place] [facility] [address] [id number] [place] [address]- 3660 September, [facility] [place] [facility] [address] [id number] [place] [address]- 0183 September, [facility] [place] [facility] [address] [id number] [place] [address]- 3337 September, [facility] [place] [facility] [address] [id number] [place] [address]- 0495 September, [facility] [place] [facility] [address] [id number] [place] [address]- 1034 16 Aug, 2013 [facility] [place] [facility] [address] [id number] [place] [address]- 9464 14 Aug, 2013 [facility] [place] [facility] [address] [id number], [place] [address]- 1139 14 Aug, 2013 [facility] [place] [facility] [address] [id number] [place] [address]- 1415 24 Jul, 2013 [facility] [place] [facility] [address] [id number] [place] [address]- 2068 24 Jul, 2013 [facility] [place] [facility] [address] [id number] [place] [address]- 7340 14 Jul, 2013 [facility] [place] [facility] [address] [id number] [place] [address]- 5651 14 Jul, 2013 [facility] [place] [facility] [address] [id number] [place] [address]- 6954 May, [facility] [place] [facility] [address] [id number] [place] [address]- 9070 May, [facility] [place] [facility] [address] [id number] [place] [address]- 2928 May, [facility] [place] [facility] [address] [id number] [place] [address]- 6070 15 Mar, 2013 [facility] [place] [facility] [address] [id number], [place] [address]- 2151 15 Mar, 2013 [facility] [place] [facility] [address] [id number] [place] [address]- 1307 Mar, [facility] [place] [facility] [address] [id number], [place] [address]- 2954 Mar, [facility] [place] [facility] [address] [id number], [place] [address]- 9690 16 Feb, 2013 [facility] [place] [facility] [address] [id number] [place] 5002 16 Feb, 2013 [facility] [place] [facility] [address] [id number] 9803 04 Feb, 2013 [facility] [place] [facility] [address] [id number] [place] 2956 16 Jan, 2013 [facility] [place] [facility] [address] [id number] [place] [address]- 1106 Jan, [facility] [address] [id number] [place] [address]- 0527 Jan, [facility] [address] [id number] [place] [address]- 7922 Dec, [facility] [address] [id number] [place] [address]- 7424 Dec, [facility] [address] [id number] [place] [address]- 4511 Dec, [facility] [address] [id number] [place] [address]- 9282 Dec, [facility] [address] [id number] [place] [address]- 6332 Nov, [facility] [address] [id number] [place] [address]- 8819 Oct, [facility] [address] [id number] [place] [address]- 8943 Oct, [facility] [address] [id number] [place] [address]- 1452 September, [facility] [address] [id number] [place] [address]- 6678 September, [facility] [address] [id number] [place] [address]- 7620 September, [facility] [address] [id number] [place] [address]- 0341 Aug, [facility] [place] [facility] [address] [id number] [place] [address]- 8633 Aug, [facility] [address] [id number] [place] [address]- 7586 Aug, [facility] [address] [id number] [place] [address]- 9692 Aug, [facility] [address] [id number] [place] [address]- 4546 26 Jul, 2012 [facility] [place] [facility] [address] [id number] [place] [address]- 1726 25 Jul, 2012 [facility] [address] [id number] [place] [address]- 1515 21 Jul, 2012 [facility] [place] [facility] [address] [id number] [place] [address]- 8567 15 Jul, 2012 [facility] [address] [id number] [place] [address]- 1575 14 Jul, 2012 [facility] [place] [facility] [address] [id number] [place] [address]- 7198 Jul, [facility] [address] [id number] [place] [address]- 4763 Jul, [facility] [place] [facility] [address] [id number] [place] [address]- 7322 Jun, [facility] [place] [facility] [address] [id number] [place] [address]- 2873 Jun, [facility] [place] [facility] [address] [id number] [place] [address]- 5299 Jun, [facility] [place] [facility] [address] [id number] [place] [address]- 8558 Jun, [facility] [place] [facility] [address] [id number] [place] [address]- 4567 May, [facility] [place] [facility] [address] [id number] [place] [address]- 8528 May, [facility] [place] [facility] [address] [id number] [place] [address]- 4929 May, [facility] [place] [facility] [address] [id number] [place] [address]- 2266 May, [facility] [place] [facility] [address] [id number] [place] [address]- 0280 May, [facility] [place] [facility] [address] [id number] [place] [address]- 5263 Apr, [facility] [place] [facility] [address] [id number] [place] [address]- 7008 Apr, [facility] [place] [facility] [address] [id number] [place] [address]- 5669 Mar, [facility] [place] [facility] [address] [id number] [place] [address]- 8115 Mar, [facility] [place] [facility] [address] [id number] [place] [address]- 2471 Mar, [facility] [place] [facility] [address] [id number] [place] [address]- 3723 Mar, [facility] [place] [facility] [address] [id number] [place] [address]- 3650 Mar, [facility] [place] [facility] [address] [id number] [place] [address]- 5510 Mar, [facility] [place] [facility] [address] [id number] [place] [address]- 5901 Mar, [facility] [place] [facility] [address] [facility] [id number] [place] [address]- 2507 Mar, [facility] [place] [facility] [address] [id number] [place] [address]- 1933 Mar, [facility] [place] [facility] [address] [id number] [place] [address]- 6380 Mar, [facility] [place] [facility] [address] [id number] [place] [address]- 3970 Feb, [facility] [place] [facility] [address] [id number] [place] [address]- 7618 Feb, [facility] [place] [facility] [address] [id number] [place] [address]- 8453 Feb, [facility] [place] [facility] [address] [id number] [place] [address]- 3303 Feb, [facility] [place] [facility] [address] [id number] [place] [address]- 8076 Feb, [facility] [place] [facility] [address] [id number] [place] [address]- 0227 Feb, [facility] [place] [facility] [address] [id number] [place] [address]- 8232 Feb, [facility] [place] [facility] [address] [id number] [place] [address]- 4932 Jan, [facility] [place] [facility] [address] [id number] [place] [address]- 5138 Jan, [facility] [place] [facility] [address] [id number] [place] [address]- 9707 Dec, [facility] [place] [facility] [address] [id number] [place] [address]- 3965 Dec, [facility] [place] [facility] [address] [id number] [place] [address]- 1936 Dec, [facility] [place] [facility] [address] [id number] [place] [address]- 9240 Dec, [facility] [place] [facility] [address] [id number] [place] [address]- 5547 Dec, [facility] [place] [facility] [address] [id number] [place] [address]- 9827 Dec, [facility] [place] [facility] [address] [id number] [place] [address]- 9151 Nov, [facility] [place] [facility] [address] [id number] [place] [address]- 8330 Nov, [facility] [place] [facility] [address] [id number] [place] [address]- 1350 Nov, [facility] [place] [facility] [address] [id number], [place] [address]- 6156 Nov, [facility] [address] [facility] [id number] [place] [address]- 2096 September, [facility] [address] [facility] [id number], [place] [address]- 4[address] September, [facility] [address] [facility] [id number] [place] [address] September, [facility] [address] [facility] [id number], [place] [address] Jul, [facility] [address] [facility] [id number] [place] [address] Jun, [facility] [address] [facility] [id number] [place] [address] Jun, [facility] [address] [id number] [address] Jun, [facility] [address] [facility] [id number], [place] [address] Apr, [facility] [address] [id number], [place] [address] Mar, [facility] [address] [id number], [place] [address] Mar, [facility] [address] [id number], [place] [address] Feb, [facility] [address] [facility] [id number][place] [id number] Feb, [facility] [address] [facility] [id number], [place] [address] Feb, [facility] [address] [facility] [id number][place] [address] 10 Jul, 2009 [facility] [address] [id number], [place] [address] Feb, IMMUNIZATIONS No Known Immunizations SOCIAL HISTORY Never Assessed REASON FOR VISIT Anxiety, PT says her hips, backs and legs hurt, ankles and feet hurt. PT has not been taking her xanex becauses it makes her more tired- Dorian MARROQUIN PLAN OF CARE Activity Details Follow Up 2 Months Reason:mood disorder VITAL SIGNS Height 62 in 2017-02-17 Weight 245.3 lbs 2017-02-17 Temperature 98.1 degrees Fahrenheit 2017-02-17 Heart Rate 84 bpm 2017-02-17 Respiratory Rate 18 2017-02-17 BMI 44.86 kg/m2 2017-02-17 Blood pressure systolic 134 mmHg 2017-02-17 Blood pressure diastolic 78 mmHg 2017-02-17 MEDICATIONS Medication Instructions Dosage Frequency Start Date End Date Duration Status Victoza 0.6 mg/0.1 mL (18 mg/3 mL) Subcutaneous Once a day inject 0.3 milliliter (1.8 mg) by subcutaneous route once daily 24h 17 Dec, 2011 90 days Active Omeprazole 20 mg Orally Once a day 1 capsule 24h 30 Active Actos 30 MG Orally Once a day 1 tablet 24h Jul, 30 Active Glucocard Expression Test - as directed 24h Nov, Active Lasix 20 mg Orally Once a day 1 tablet 24h Nov, 30 day(s) Active PredniSONE 20 MG Orally Once a day 1 tablet 24h May, 30 days Active Methotrexate 2.5 MG Orally 1 time per week 6 28 Active Potassium Chloride Marie ER 20 MEQ Orally Once a day 1 tablet with food 24h Active Lisinopril-Hydrochlorothiazide 20-25 MG Orally Once a day 1 tablet 24h 30 Active Spironolactone 25 MG Orally Once a day 1 tablet 24h Active Glucocard Expression Monitor w/Device as directed Nov, Active Loratadine 10 mg Orally Once a day TAKE ONE TABLET BY MOUTH DAILY 24h 30 Active Venlafaxine HCl 37.5 MG Orally 2 times a day 1 tablet with food 12h Jan 30 day(s) Active Proventil HFA 108 (90 Base) MCG/ACT 2 puffs as needed 6h Active Folic Acid 1 MG TAKE ONE TABLET BY MOUTH ONCE DAILY (DO NOT TAKE ON DAYS YOU TAKE METHOTREXATE) 30 Active Nyamyc [id number] UNIT/GM APPLY TO AFFECTED AREA 12h 5 Active Clonidine HCl 0.1 MG Orally Twice a day 1 tablet 12h Nov, 30 day(s) Active RESULTS No Results [...]
--- OUTSIDE RECORDS SUMMARY | 2018-02-03 00:05 | XMS REPORT ---
Author Author KINGSLEY SADLER [facility] Address [address] [place] [address] Care Team Providers Care Immunohematologist Name Role Phone KINGSLEY SADLER Unavailable PROBLEMS Type Condition ICD9-CM Code [id number] Code Onset Dates Condition Status SNOMED Code Problem Plantar warts B07.0 Active 37796355 Problem Lumbago with sciatica, left side M54.42 Active 046697945 Problem Plantar wart of both feet B07.0 Active [id number] Problem Morbid (severe) obesity due to excess calories E66.01 Active 024473486 Problem Dermatomyositis M33.90 Active 541407254 Problem Tachycardia with heart rate 121-140 beats per minute R00.0 Active 2743521 Problem Controlled type 2 diabetes mellitus without complication, without long -term current use of insulin E11.9 Active 697804855 Problem Enlarged thyroid gland E04.9 Active 1696633 Problem Body mass index (BMI) of 45.0-49.9 in adult Z68.42 Active 632181359 Problem Menopause Z78.0 Active 589380368 Problem Allergic rhinitis due to pollen J30.1 Active 34425286 Problem Osteoarthritis of right knee, unspecified osteoarthritis type M17.9 Active 763523499 Problem Anxiety F41.9 Active 74324910 Problem Mood disorder F39 Active 96916935 Problem Other chronic pain G89.29 Active 46499738 Problem Diabetes type 2, controlled E11.9 Active 25405190 Problem Arthritis M19.90 Active 9565220 ALLERGIES No Information ENCOUNTERS Encounter Location Date Diagnosis [facility] [address] [facility] [id number], [place] [address] Nov, [facility] [address] [facility] [place] [id number], [place] [address] Nov, [facility] [address] [facility] [place] [id number], [place] [address] 5[address] Oct, [facility] [address] [place] [id number] [place] [address] 25379- 1716 Oct, Plantar wart of both feet B07.0 [facility] [address] [id number] [place] [address] 49936- 7366 Oct, [facility] [address] [id number] [place] [address] 03376- 8871 Oct, Acute right ankle pain M25.571 and Plantar wart of both feet B07.0 [facility] [address] [place] [id number] [place] [address] 01042- 0910 September, Other chronic pain G89.29 [facility] [address] [address]249- 4228 September, Other chronic pain G89.29 [place] [address] 55679- 9513 September, Other chronic pain G89.29 [facility] [address] [place] [id number] [place] [address] 80657- 4604 Aug, Mood disorder F39 [place] [address] 09838- 6044 Aug, Other chronic pain G89.29 ; Controlled type 2 diabetes mellitus without complication, without long-term current use of insulin E11.9 ; Low back pain M54.5 and Tinea corporis B35.4 [facility] [address] [id number] [place] [address] 49704- 6413 Aug, Mood disorder F39 and Anxiety F41.9 [place] [address] 82477- 5143 Aug, Mood disorder F39 and Anxiety F41.9 [facility] [address] [id number] [place] [address] 71243- 5463 Jul, [facility] [address] 9[address]94 -2481 13 Jul, 2017 Scabies B86 and BMI 45.0-49.9, adult Z68.42 [place] [address] [place] [id number] [place] [address] 80141- 9727 Jul, [place] [address] [place] [id number] [place] [address] 37927- 6508 Jul, Mood disorder F39 and Anxiety F41.9 [place] [address] [place] [id number] [place] [address] 17543- 1211 Jul, [facility] [place] [address] [id number] [place] [address] 06706 -6953 27 Jun, 2017 Bronchitis J40 ; Dark urine R82.99 and BMI 45.0-49.9, adult Z68.42 [place] [address] [place] [id number] [place] [address] 65896- 9811 14 Jun, 2017 Acute pain of right shoulder M25.511 and Acute pain of right knee M25.561 [place] [address] [place] [id number] [place] [address] 90606- 4609 May, BMI 40.0-44.9, adult Z68.41 ; Controlled type 2 diabetes mellitus without complication, without long-term current use of insulin E11.9 ; Muscle cramping R25.2 ; Hot flashes R23.2 ; Mood disorder F39 ; Anxiety F41.9 and Morbid (severe) obesity due to excess calories E66.01 [place] [address] [place] [address] 29681- 8348 May, BMI 40.0-44.9, adult Z68.41 ; Controlled type 2 diabetes mellitus without complication, without long-term current use of insulin E11.9 ; Muscle cramping R25.2 and Hot flashes R23.2 [place] [id number] [place] [address] 91691- 8599 May, Tachycardia with heart rate 121-140 beats per minute R00.0 ; Morbid (severe) obesity due to excess calories E66.01 ; Diabetes type 2, controlled E11.9 and Enlarged thyroid gland E04.9 [place] [address] 14506- 3511 25 May, 2017 Encounter for well woman [...] Dysuria R30.0 and Screening breast examination Z12.31 [place] [address] 36915- 2292 Apr, Mood disorder F39 ; Other chronic pain G89.29 and Anxiety F41.[address] 79112- 3542 Apr, Lumbago with sciatica, left side M54.42 and Other chronic pain G89.29 [place] [address] 16523- 7098 Apr, Lupus erythematosus L93.0 [place] [address] 18016- 6098 Mar, Plantar wart of both feet B07.0 [place] [address] 12413- 3465 Mar, Lupus erythematosus L93.0 and Sinus drainage J34.89 [place] [address] 90065- 6504 Mar, Mood disorder F39 ; Other chronic pain G89.29 and Anxiety F41.9 [place] [address] 46098- 3193 Mar, Mood disorder F39 ; Arthritis M19.90 and Plantar warts B07.0 [place] [address] [place] [id number] [place] [address] 98651- 2958 Feb, Lupus erythematosus L93.0 [facility] [address] 77043- 3440 Feb, Other chronic pain G89.29 [place] [address] [place] [id number] [place] [address] 23889- 8176 Feb, Mood disorder F39 and Anxiety F41.9 [place] [address] [place] [id number] [place] [address] 90231- 5701 Jan, [place] [address] 45440- 5726 Jan, Mood disorder F39 [place] [address] 05624- 8129 Dec, Nail, ingrown L60.0 [place] [address] [place] [id number] [place] [address] 68801- 6845 Dec, Nail, ingrown L60.0 [place] [address] [place] [id number] [place] [address] 98079- 2539 Nov, Mood disorder F39 and Anxiety F41.9 [place] [address] [place] [id number] [place] [address] 00049- 3624 Nov, Sinus drainage J34.89 ; Hot flashes R23.2 ; Anxiety F41.9 and Diabetes type 2, controlled E11.9 [place] [address] [place] [id number] [place] [address] 78554- 3505 Nov, Nail, ingrown L60.0 [place] [address] 32528- 1957 Oct, Anxiety F41.9 and Mood disorder F39 [place] [address] [place] [id number] [place] [address] 29520- 8538 Oct, Nail, ingrown L60.0 and Anxiety F41.9 [place] [address] [address]- 4303 Oct, Lupus erythematosus L93.0 [facility] [address] [id number] [place] [address] 57224- 8199 September, [facility] [id number] [place] [address] 03056- 5270 September, [facility] [id number] [place] [address] 64975- 6985 September, Lupus erythematosus L93.0 [facility] [address] [id number] [place] [address] 04984- 3939 Aug, [facility] [id number] [place] [address] 06821- 0579 Aug, Mood disorder F39 and Anxiety F41.9 [facility] [address] [id number] [place] [address] 25684- 9949 Aug, Lupus erythematosus L93.0 ; Diabetes type 2, controlled E11.9 and Localized edema R60.0 [facility] [id number] [place] [address] 05062- 8915 Aug, [facility] [id number] [place] [address] 49552- 0134 Jul, Anxiety F41.9 and Mood disorder F39 [facility] [id number] [place] [address] 65243- 2779 Jul, Diabetes type 2, controlled E11.9 [facility] [address] [place] [address] 01434- 9247 Jun, Anxiety F41.9 [facility] [id number] [place] [address] 31024- 1475 May, [facility] [id number] [place] [address] 86605- 3253 May, [facility] [id number] [place] [address] 40531- 9662 May, Nausea R11.0 ; Other chronic pain G89.29 and Pain in right knee M25.561 [place] [address] 29745- 5202 May, [place] [address] [place] [id number] [place] [address] 97342- 8609 Apr, Tear of medial meniscus of right knee, current, unspecified tear type, subsequent encounter S83.241D and Tear of lateral meniscus of right knee, current, unspecified tear type, subsequent encounter S83.281D [place] [address] [place] [id number] [place] [address] 41861- 0102 Apr, Anxiety F41.9 and Mood disorder F39 [place] [id number] [place] [address] 28660- 9445 Apr, Anxiety F41.9 [place] [address] 80528- 6750 Apr, [place] [address] [place] [id number] [place] [address] 72349- 3317 Mar, [place] [address] [place] [id number] [place] [address] 01501- 6057 Mar, Lupus erythematosus L93.0 and Diabetes type 2, controlled E11.9 [place] [address] [place] [id number] [place] [address] 62741- 6187 Mar, Mood disorder F39 [place] [address] [place] [id number] [place] [address] 82415- 3920 03 Mar, 2016 Tear of lateral meniscus of right knee, current, unspecified tear type, initial encounter S83.281A and Osteoarthritis of right knee, unspecified osteoarthritis type M17.9 [place] [address] [place] [id number] [place] [address] 82718- 8081 02 Mar, 2016 [place] [address] [place] [id number] [place] [address] 38014- 1298 Feb, Mood disorder F39 [facility] [address] [address]- 3871 Feb, Rash R21 [facility] [address] [place] [id number] [place] [address] 61492- 0226 Feb, [facility] [address] [id number] [place] [address] 08817- 8125 Jan, Other chronic pain G89.29 and Muscle spasm M62.838 [facility] [id number] [place] [address] 68600- 6863 Jan, Mood disorder F39 [facility] [id number] [place] [address] 73395- 7884 Jan, Pain in right knee M25.561 ; Other chronic pain G89.29 and Muscle spasm M62.838 [facility] [address] [id number] [place] [address] 64023- 7049 Dec, [facility] [id number] [place] [address] 69562- 6773 Dec, [facility] [id number] [place] [address] 12699- 7998 Nov, [facility] [id number] [place] [address] 04867- 1510 Nov, Mood disorder F39 [facility] [address] [place] [address] 98328- 2546 Nov, Diabetes type 2, controlled E11.9 ; Bronchitis J40 ; Edema, unspecified type R60.9 ; Weight gain R63.5 and Right knee pain, unspecified chronicity M25.561 [facility] [address] [place] [id number] [place] [address] 17698- 6097 Oct, Mood disorder F39 [facility] [address] [address]- 5017 Oct, Lupus erythematosus L93.0 and Bilateral edema of lower extremity R60.0 [facility] [address] [id number] [place] [address] 77874- 5259 Oct, Mood disorder F39 and Anxiety F41.9 [facility] [address] [id number] [place] [address] 75008- 6231 September, Mood disorder F39 ; Anxiety F41.9 and Anger reaction R45.4 [place] [address] 69754- 2219 September, Diabetes type 2, controlled E11.9 ; Edema, unspecified type R60.9 and Fatigue, unspecified type R53.83 [place] [address] 91988- 5184 Aug, Mood disorder F39 and Generalized anxiety disorder F41.1 [place] [address] 80577- 7112 Aug, Diabetes type 2, controlled E11.9 ; Sinusitis J32.9 and Mood disorder F39 [place] [address] [place] [id number] [place] [address] 82048- 6702 15 Aug, 2015 Lupus erythematosus L93.0 [place] [address] [place] [id number] [place] [address] 42269- 4334 14 Aug, 2015 [place] [address] [place] [id number] [place] [address] 09817- 8366 Aug, [place] [address] [place] [id number] [place] [address] 32228- 7058 Jul, Diabetes type 2, controlled E11.9 [facility] [address] [place] [id number] [place] [address] 80031- 8268 Jul, Mood disorder F39 and Depression F32.9 [facility] [address] [place] [id number] [place] [address] 56691- 0765 Jul, Lupus erythematosus L93.0 and Diabetes type 2, controlled E11.9 [facility] [address] 59645- 8470 Jul, Mood disorder F39 and Anxiety F41.9 [facility] [address] [place] [address] 57974- 8426 Jul, [facility] [address] [place] [id number] [place] [address] 55456- 5676 Jul, [facility] [address] [place] [address] 52963- 7825 Jun, Mood disorder F39 and Anxiety F41.9 [facility] [address] [place] [address] 02855- 8333 Jun, Mood disorder F39 [facility] [id number] [place] [address] 18716- 5080 Jun, [facility] [address] [id number] [place] [address] 58340- 3875 Jun, [facility] [address] [id number] [place] [address] 55683- 3793 Jun, Mood disorder F39 [facility] [address] [place] [address] 76066- 4174 Jun, [facility] [address] [place] [id number] [place] [address] 37839- 8013 May, [facility] [address] [place] [address] 30197- 1256 May, [facility] [id number] [place] [address] 49027- 8851 May, [facility] [address] [place] [address] 34022- 8975 May, [facility] [address] [place] [address] 21467- 1486 May, Anxiety F41.9 ; Dermatomyositis M33.90 and Diabetes type 2, controlled E11.9 [facility] [address] [place] [address] 06557 -3412 May, 2016 Sinusitis J32.9 and Cough R05 [facility] [address] [id number] [place] [address] 72413- 6414 May, 2016 Mood disorder F39 [facility] [address] [id number] [place] [address] 97368- 5606 May, Adjustment disorder with mixed anxiety and depressed mood F43.23 [facility] [address] 80125- 2234 Apr, [facility] [address] [place] [id number] [place] [address] 82092- 9376 Apr, [facility] [address] [place] [id number] [place] [address] 77312- 8024 Apr, Generalized anxiety disorder F41.1 and Mood disorder F39 [facility] [address] 03030- 2602 Mar, [facility] [address] [place] [id number] [place] [address] 09976- 8697 Mar, [facility] [address] [id number] [place] [address] 60379- 6332 Mar, [facility] [id number] [place] [address] 96715- 7078 Mar, Mood disorder F39 [facility] [address] [id number] [place] [address] 73227- 1404 Feb, [facility] [address] [place] [id number] [place] [address] 11243- 5310 Feb, Diabetes E11.9 and Bronchitis J40 [facility] [address] [id number] [place] [address] 99410- 8237 Feb, [facility] [address] [id number] [place] [address] 32169- 4469 Feb, [facility] [address] 92204- 0001 Feb, Major depression, recurrent, full remission F33.42 and KELLY ( generalized anxiety disorder) F41.1 [place] [address] [place] [id number] [place] [address] 39707- 8737 Feb, [place] [address] [place] [id number] [place] [address] 41286- 8089 Feb, Single major depressive episode, in partial or unspecified remission F32.5 [place] [address] [place] [id number] [place] [address] 83002- 8669 Jan, Fatigue 780.79 [place] [id number] [place] [address] 29719- 5336 Jan, [place] [address] [place] [id number] [place] [address] 24922- 4588 Jan, Diabetes with other specified manifestations, type II or unspecified type, not stated as uncontrolled 250.80 [place] [address] [place] [id number] [place] [address] 55321- 8909 Jan, [place] [address] [place] [id number] [place] [address] 04200- 3007 Dec, Hot flashes 627.2 ; Memory loss 780.93 and Joint pain 719.40 [place] [id number] [place] [address] 00290- 4828 Dec, Major depression, recurrent 296.30 ; Generalized anxiety disorder 300.02 ; Adjustment disorder with depressed mood 309.0 and No condition on [place] II V71.09 [place] [address] [place] [id number] [place] [address] 64879- 0587 Dec, [place] [id number] [place] [address] 57653- 4235 Nov, Cognitive and neurobehavioral dysfunction 294.9 ; Major depressive disorder, recurrent episode, moderate degree 296.32 and Anxiety state , unspecified 300.00 [place] [id number] [place] [address] 94655- 7842 Nov, [place] [address] [place] [address]- 6808 Nov, Bronchitis 490 and Diabetes with other specified manifestations, type II or unspecified type, not stated as uncontrolled 250.80 [address] [place] [address]- 7168 Nov, Major depressive disorder, recurrent episode, moderate 296.32 and Anxiety disorder, unspecified 300.00 [place] [id number] [place] [address] 52393- 3342 Nov, Anxiety, generalized 300.02 ; Intermittent explosive disorder 312.34 ; No condition on Fleet[place] II V71.09 and No condition on axis III V71.[address] [place] [address] 14644- 7881 Oct, Diabetes with other specified manifestations, type II or unspecified type, not stated as uncontrolled 250.80 ; Urinary tract infection, site not specified 599.0 and Bronchitis [address] [place] [address]- 1331 Oct, Intermittent explosive disorder 312.34 ; Bipolar 1 disorder , depressed, moderate 296.52 ; Major depression, chronic 296.20 ; No condition on [place] II V71.09 and No condition on axis III V71.09 [address] [place] [address]- 9911 Oct, Major depressive disorder, recurrent episode, moderate 296.32 ; Anxiety state 300.00 ; Cognitive decline 294.9 and No condition on [place] II V71.09 [place] [address] [place] [address]- 4156 Oct, [place] [id number] [place] [address] 47020- 6635 04 Oct, 2014 Major depressive disorder, recurrent episode, moderate 296.32 ; Anxiety disorder, unspecified 300.00 and Persistent disorder of initiating or maintaining sleep 307.42 [place] [id number] [place] [address] 35706- 7723 September, Diabetes with other specified manifestations, type II or unspecified type, not stated as uncontrolled 250.80 ; Memory loss 780.93 and Cognitive complaints 799.59 [facility] [id number] [address]- 3021 September, No condition on [place] II V71.09 ; Major depression, recurrent 296.30 and Persistent mood [affective] disorder, unspecified 296.90 [facility] [id number] [place] [address] 74172- 8062 Aug, [facility] [id number] [place] [address] 09199- 0436 Aug, [facility] [id number] [place] [address] 07735- 2515 Aug, [facility] [id number] [place] [address] 94890- 5876 Jul, [facility] [id number] [address]- 5389 Jul, [facility] [id number] 9332 Jul, [facility] [id number] 0236 Jul, [facility] [address], [place] [address]- 3466 Jul, [facility] [address], [place] [address]- 0536 Jun, [facility] [address], [place] [address]- 8696 Jun, [facility] [address], [place] [address]- 7966 Jun, [facility] [address], [place] [address]- 6486 Jun, [facility] [place] [facility] [address] [id number] [place] [address]- 7631 Jun, 2014 [facility] [place] [facility] [address] [id number] [place] [address] Jun, 2014 [facility] [place] [facility] [address] [id number] [place] [address] Jun, 2014 [facility] [place] [facility] [address] [id number] [place] [address] Jun, 2014 [facility] [place] [facility] [address] [id number] [place] [address] Jun, 2014 [facility] [place] [facility] [address] [id number] [place] [address] Jun, 2014 [facility] [place] [facility] [address] [facility] [id number] [place] [address] Jun, 2014 [facility] [place] [facility] [address] [facility] [id number] [place] [address] Jun, 2014 [facility] [place] [facility] [address] [facility] [id number] [place] [address] Jun, 2014 [facility] [place] [facility] [address] [facility] [id number] [place] [address] May, [facility] [place] [facility] [address] [facility] [id number], [place] [address] May, [facility] [place] [facility] [address] [id number], [place] [address] Apr, [facility] [place] [facility] [address] [id number] [place] [address] Apr, [facility] [place] [facility] [address] [facility] [id number] [place] [address] Apr, [facility] [place] [facility] [address] [facility] [id number] [place] [address] Apr, [facility] [place] [facility] [address] [id number] [place] [address] Apr, [facility] [place] [facility] [address] [id number] [place] [address] Apr, [facility] [facility] [address] [id number] [place] [address] Apr, [facility] [place] [facility] [address] [id number] [place] [address] Apr, [facility] [place] [facility] [address] [id number] [place] [address] Apr, [facility] [place] [facility] [address] [id number] [place] [address] Apr, [facility] [place] [facility] [address] [id number] [place] [address] Apr, [facility] [address] [id number] [place] [address] 69[address] Apr, [facility] [address] [id number] [place] [address] 57[address] Apr, [facility] [place] [facility] [address] [id number] [place] [address] Apr, [facility] [address] [id number] [place] [address] Apr, [facility] [place] [facility] [address] [id number] [place] [address] 1311 Apr, [facility] [place] [facility] [address] [id number] [place] [address] 7601 Apr, [facility] [place] [facility] [address] [id number] [place] [address] Apr, [facility] [place] [facility] [address] [id number] [place] [address]- 1714 Apr, [facility] [place] [facility] [address] [id number] [place] [address] Apr, [facility] [place] [facility] [address] [id number] [place] [address]- 9684 Mar, [facility] [place] [facility] [address] [id number] [place] [address]- 8411 Mar, [facility] [place] [address] [id number] [place] [address]- 1426 Mar, [facility] [place] [facility] [address] [id number] [place] [address]- 5910 Mar, [facility] [place] [facility] [address] [id number] [place] [address]- 2246 Mar, [facility] [place] [address] [id number] [place] [address]- 4832 Mar, [facility] [address] [id number] [place] [address]- 8435 Mar, [facility] [place] [facility] [address] [id number] [place] [address]- 1717 Mar, [facility] [address] [id number] [place] [address]- 9635 Mar, [facility] [address] [id number] [place] [address]- 3400 Mar, [facility] [place] [address] [id number] [place] [address]- 1483 Mar, [facility] [address] [id number], [place] [address]- [address] Mar, [facility] [address] [id number] [place] [address]- 3009 Mar, [facility] [address] [id number] [place] [address]- 5015 Feb, [facility] [address] [id number] [place] [address]- 9707 Feb, [facility] [address] [id number], [place] [address] Feb, [facility] [address] [id number] [place] [address]- 1782 Feb, [facility] [address] [id number] [place] [address]- 2613 Feb, [facility] [address] [id number] [place] [address]- 9105 Feb, [facility] [address] [id number] [place] [address]- 1566 Feb, [facility] [address] [id number] [place] [address]- 6966 Feb, [facility] [address] [id number] [place] [address]- 8120 Feb, [facility] [address] [id number] [place] [address]- 3940 Feb, [facility] [address] [id number] [place] [address]- 9049 Feb, [facility] [address] [id number] [place] [address]- 8609 Feb, [facility] [address] [id number] [place] [address]- 2125 10 Feb, 2014 [facility] [address] [id number], [place] [address]- 5799 07 Feb, 2014 [facility] [address] [id number], [place] [address]- [address] 07 Feb, 2014 [facility] [address] [id number] [place] [address]- 4476 10 Jan, 2013 [facility] [address] [id number], [place] [address]- [address] 08 Jan, 2013 [facility] [address] [id number] [place] [address]- 1868 08 Jan, 2013 [facility] [address] [id number] [place] [address]- 0766 08 Jan, 2014 [facility] [address] [id number] [place] [address]- 2394 Jan, [facility] [address] [id number] [place] [address]- 3275 Dec, [facility] [address] [id number] [place] [address]- 0769 Dec, [facility] [address] [id number] [place] [address]- 4278 Dec, [facility] [address] [id number] [place] [address]- 7286 Dec, [facility] [address] [id number] [place] [address]- 9434 Nov, [facility] [address] [id number] [place] [address]- 9465 Nov, [facility] [address] [id number] [place] [address]- 9793 Nov, [facility] [address] [id number] [place] [address]- 0433 Nov, [facility] [address] [id number] [place] [address]- 1745 Nov, [facility] [address] [id number] [place] [address]- 6491 Nov, [facility] [address] [id number] [place] [address]- 8239 Nov, [facility] [address] [id number] [place] [address]- 9833 Nov, [facility] [address] [id number] [place] [address]- 5631 Nov, [facility] [address] [id number] [place] [address]- 8439 Nov, [facility] [address] [id number] [place] [address]- 9173 Oct, [facility] [address] [id number] [place] [address]- 1595 Oct, [facility] [address] [id number] [place] [address]- 5313 September, [facility] [address] [id number] [place] [address]- 6563 September, [facility] [address] [id number] [place] [address]- 1539 September, [facility] [address] [id number] [place] [address]- 7236 September, [facility] [address] [id number] [place] [address]- 7851 Aug, [facility] [address] [id number] [place] [address]- 1713 Aug, [facility] [address] [id number] [place] [address]- 4364 Aug, [facility] [address] [id number] [place] [address]- 4286 Jul, [facility] [address] [id number] [place] [address]- 5316 24 Jul, 2013 [facility] [address] [id number] [place] [address]- 5454 Jul, [facility] [address] [id number] [place] [address]- 8200 Jul, [facility] [address] [id number] [place] [address]- 3046 May, [facility] [address] [id number] [place] [address]- 3824 May, [facility] [address] [id number] [place] [address]- 4127 17 May, 2013 [facility] [address] [id number] [place] [address]- 4277 15 Mar, 2013 [facility] [address] [id number] [place] [address]- 5462 15 Mar, 2013 [facility] [address] [id number] [place] [address]- 2939 Mar, [facility] [address] [id number] [place] [address]- 2192 Mar, [facility] [address] [id number] [place] [address]- 0319 16 Feb, 2013 [facility] [address] [id number] [place] [address]- 2935 Feb, [facility] [address] [id number] [place] [address]- 7133 Feb, [facility] [address] [id number] [place] [address]- 5105 16 Jan, 2013 [facility] [address] [id number] [place] [address]- 9180 Jan, [facility] [address] [id number] [place] [address]- 6497 Jan, [facility] [address] [id number] [place] [address]- 4546 Dec, [facility] [address] [id number] [place] [address]- 1518 Dec, [facility] [address] [id number] [place] [address]- 2768 Dec, [facility] [address] [id number] [place] [address]- 9441 Dec, [facility] [address] [id number] [place] [address]- 6769 Nov, [facility] [address] [id number] [place] [address]- 4424 Oct, [facility] [address] [id number] [place] [address]- 2773 Oct, [facility] [address] [id number] [place] [address]- 8710 September, [facility] [address] [id number] [place] [address]- 8549 September, [facility] [address] [id number] [place] [address]- 7248 September, [facility] [address] [id number] [place] [address]- 2827 Aug, [facility] [address] [id number] [place] [address]- 8695 Aug, [facility] [address] [id number] [place] [address]- 3939 Aug, [facility] [address] [id number] [place] [address]- 8043 Aug, [facility] [address] [id number] [place] [address]- 5613 Jul, [facility] [address] [id number] [place] [address]- 9103 Jul, [facility] [address] [id number] [place] [address]- 0953 21 Jul, 2012 [facility] [address] [id number] [place] [address]- 6277 15 Jul, 2012 [facility] [address] [id number] [place] [address]- 4779 14 Jul, 2012 [facility] [address] [id number] [place] [address]- 5204 13 Jul, 2012 [facility] [address] [id number] [place] [address]- 2767 Jul, [facility] [address] [id number] [place] [address]- 8672 Jun, [facility] [address] [id number] [place] Jun, [facility] [address] [id number] [place] [address]- 0396 Jun, [facility] [address] [id number] [place] [address]- 6462 Jun, [facility] [address] [id number] [place] [address]- 3905 May, [facility] [address] [id number] [place] [address]- 2792 May, [facility] [address] [id number] [place] [address]- 6760 May, [facility] [address] [id number] [place] [address]- 7159 May, [facility] [address] [id number] [place] [address]- 3946 May, [facility] [address] [id number] [place] [address]- 7555 Apr, [facility] [address] [id number], [place] [address]- 8479 Apr, [facility] [address] [id number] [place] [address]- 1051 Mar, [facility] [address] [id number] [place] [address]- 5137 Mar, [facility] [address] [id number] [place] [address]- 0766 Mar, [facility] [address] [id number] [place] [address]- 9307 Mar, [facility] [address] [id number] [place] [address]- 6506 Mar, [facility] [address] [id number] [place] [address]- 4907 Mar, [facility] [address] [id number] [place] [address]- 3766 Mar, [facility] [address] [id number] [place] [address]- 0601 Mar, [facility] [address] [id number] [place] [address]- 1207 Mar, [facility] [address] [id number] [place] [address]- 3301 Mar, [facility] [address] [id number] [place] [address]- 2355 Feb, [facility] [address] [id number] [place] [address]- 0638 Feb, [facility] [address] [id number] [place] [address]- 3630 Feb, [facility] [address] [id number] [place] [address]- 8069 Feb, [facility] [address] [id number] [place] [address]- 9833 Feb, [facility] [facility] [address] [id number] [place] [address]- 1942 Feb, [facility] [address] [id number] [place] [address]- 8302 Feb, [facility] [address] [id number] [place] [address]- 9888 Jan, [facility] [facility] [address] [id number] [place] [address] 2546 Jan, [facility] [facility] [address] [id number] [place] [address]- 7361 Dec, [facility] [address] [id number] [place] [address]- 6282 Dec, [facility] [place] [facility] [address] [id number] [place] [address]- 7550 Dec, [facility] [facility] [address] [id number] [place] [address]- 0280 Dec, [facility] [facility] [address] [id number] [place] [address]- 5406 Dec, [facility] [place] [facility] [address] [id number] [place] [address]- 7246 Dec, [facility] [place] [facility] [address] [id number] [place] [address]- 0097 Nov, [facility] [place] [facility] [address] [id number] [place] [address]- 8785 Nov, [facility] [place] [facility] [address] [id number] [place] [address]- 1009 Nov, [facility] [place] [facility] [address] [id number] [place] [address]- 7024 Nov, [facility] [place] [facility] [address] [id number] [place] [address]- 3313 September, [facility] [place] [facility] [address] [id number] [place] [address]- 1228 September, [facility] [place] [facility] [address] [id number] [place] [address]- 7037 September, [facility] [place] [facility] [address] [id number] [place] [address]- 9594 Jul, [facility] [place] [facility] [address] [id number] [place] [address]- 1137 Jun, [facility] [place] [facility] [address] [id number] [place] [address]- 7018 Jun, [facility] [place] [facility] [address] [id number], [place] [address] 3505 13 Jun, 2011 [facility] [id number], [place] [address]- 1034 14 Apr, 2011 [facility] [id number], [place] [address]- 3529 Mar, [facility] [id number] [address] Mar, [facility] [id number], [place] [address]- 3306 Feb, [facility] [id number] [place] [address]- 4010 Feb, [facility] [id number], [place] [address]- 0140 Feb, [facility] [id number] [address] Jul, [facility] [address] [id number], [place] [address]- 2775 Feb, IMMUNIZATIONS No Known Immunizations SOCIAL HISTORY Never Assessed REASON FOR VISIT Lab (walk-in) PLAN OF CARE VITAL SIGNS MEDICATIONS Unknown Medications RESULTS No Results PROCEDURES Procedure Date Ordered Result Body Site LIPID PANEL Jun 23, 2017 VENIPUNCT, ROUTINE* Jun 23, 2017 INSTRUCTIONS MEDICATIONS ADMINISTERED No Known Medications MEDICAL (GENERAL) HISTORY Type Description Date Medical History type II diabetes-dx'd 12/2010 Medical History dysfunctional uterine bleeding--endometrial bx 12/2010 Medical History asthma Medical History hypertension Medical History obesity Medical History anxiety Medical History autoimmune disease Surgical History x1 Hospitalization History child Hospitalization History Asthma
--- OUTSIDE RECORDS SUMMARY | 2018-02-03 00:06 | XMS REPORT ---
Author Author ROSANA CRUMP [facility] Address [address] [place] [address] Care Team Providers Care Property Consultant Name Role Phone ROSANA CRUMP Unavailable PROBLEMS Type Condition ICD9-CM Code LJE22-PF Code Onset Dates Condition Status SNOMED Code Problem Plantar warts B07.0 Active 51838800 Problem Lumbago with sciatica, left side M54.42 Active 623925724 Problem Plantar wart of both feet B07.0 Active 20128830907014529 Problem Morbid (severe) obesity due to excess calories E66.01 Active 116894647 Problem Dermatomyositis M33.90 Active 597133246 Problem Tachycardia with heart rate 121-140 beats per minute R00.0 Active 8632232 Problem Controlled type 2 diabetes mellitus without complication, without long -term current use of insulin E11.9 Active 189371852 Problem Enlarged thyroid gland E04.9 Active 3157013 Problem Body mass index (BMI) of 45.0-49.9 in adult Z68.42 Active 494055045 Problem Menopause Z78.0 Active 418939647 Problem Allergic rhinitis due to pollen J30.1 Active 27628576 Problem Osteoarthritis of right knee, unspecified osteoarthritis type M17.9 Active 994994241 Problem Anxiety F41.9 Active 45458723 Problem Mood disorder F39 Active 84656028 Problem Other chronic pain G89.29 Active 23286509 Problem Diabetes type 2, controlled E11.9 Active 34716831 Problem Arthritis M19.90 Active 6855744 ALLERGIES No Information ENCOUNTERS Encounter Location Date Diagnosis [facility] [address] [address] Aug, [facility] [address] [address] 2979 Aug, [facility] [address] [address] Jul, [facility] [id number] [place] [address] 15812 -4737 13 Jul, 2017 Scabies B86 and BMI 45.0-49.9, adult Z68.42 [facility] [id number] [place] [address] 13526- 4459 Jul, [facility] [address] 6[address]65- 2076 Jul, Mood disorder F39 and Anxiety F41.9 [facility] [address] 30176- 8987 Jul, [facility] [id number] [place] [address] 42750 -0460 27 Jun, 2017 Bronchitis J40 ; Dark urine R82.99 and BMI 45.0-49.9, adult Z68.42 [facility] [address] 41219- 3204 14 Jun, 2017 Acute pain of right shoulder M25.511 and Acute pain of right knee M25.561 [facility] [id number] [place] [address] 08711- 3811 May, BMI 40.0-44.9, adult Z68.41 ; Controlled type 2 diabetes mellitus without complication, without long-term current use of insulin E11.9 ; Muscle cramping R25.2 ; Hot flashes R23.2 ; Mood disorder F39 ; Anxiety F41.9 and Morbid (severe) obesity due to excess calories E66.01 [facility] [id number] [place] [address] 46415- 5471 May, BMI 40.0-44.9, adult Z68.41 ; Controlled type 2 diabetes mellitus without complication, without long-term current use of insulin E11.9 ; Muscle cramping R25.2 and Hot flashes R23.2 [facility] [address] 8[address]87- 1988 May, Tachycardia with heart rate 121-140 beats per minute R00.0 ; Morbid (severe) obesity due to excess calories E66.01 ; Diabetes type 2, controlled E11.9 and Enlarged thyroid gland E04.9 [facility] [id number] [place] [address] 49073- 2871 25 May, 2017 Encounter for well woman [...] Dysuria R30.0 and Screening breast examination Z12.31 [place] [id number] [place] [address] 50154- 4341 Apr, Mood disorder F39 ; Other chronic pain G89.29 and Anxiety F41.9 [facility] [id number] [place] [address] 36205- 2387 Apr, Lumbago with sciatica, left side M54.42 and Other chronic pain G89.29 [facility] [id number] [place] [address] 89035- 7132 Apr, Lupus erythematosus L93.0 [facility] [id number] [place] [address] 40542- 9657 Mar, Plantar wart of both feet B07.0 [facility] [id number] [place] [address] 31676- 5698 Mar, Lupus erythematosus L93.0 and Sinus drainage J34.89 [facility] [id number] [place] [address] 86170- 8542 09 Mar, 2017 Mood disorder F39 ; Other chronic pain G89.29 and Anxiety F41.[address] 16722- 7376 Mar, Mood disorder F39 ; Arthritis M19.90 and Plantar warts B07.0 [facility] [address] 29761- 3566 Feb, Lupus erythematosus L93.0 [facility] [address] 78630- 2287 Feb, Other chronic pain G89.29 [facility] [address] 71816- 0537 Feb, Mood disorder F39 and Anxiety F41.9 [facility] [address] 79756- 4432 Jan, [facility] [address] 06145- 8924 Jan, Mood disorder F39 [facility] [address] 80246- 6910 Dec, Nail, ingrown L60.0 [facility] [address] 79035- 6726 Dec, Nail, ingrown L60.0 [facility] [address] 44018- 6738 Nov, Mood disorder F39 and Anxiety F41.9 [facility] [address] 93756- 3965 Nov, Sinus drainage J34.89 ; Hot flashes R23.2 ; Anxiety F41.9 and Diabetes type 2, controlled E11.9 [facility] [address] 22575- 0673 Nov, Nail, ingrown L60.0 [facility] [id number] [place] [address] 87038- 6286 Oct, Anxiety F41.9 and Mood disorder F39 [facility] [address] 03408- 2978 Oct, Nail, ingrown L60.0 and Anxiety F41.9 [facility] [id number] [place] [address] 27029- 4946 Oct, Lupus erythematosus L93.0 [facility] [id number] [place] [address] 15114- 1712 September, [facility] [address] 69838- 9584 September, [facility] [id number] [place] [address] 65214- 3364 September, Lupus erythematosus L93.0 [facility] [id number] [place] [address] 21579- 2713 Aug, [facility] [id number] [place] [address] 16677- 8647 Aug, Mood disorder F39 and Anxiety F41.9 [facility] [id number] [place] [address] 98646- 2213 Aug, Lupus erythematosus L93.0 ; Diabetes type 2, controlled E11.9 and Localized edema R60.0 [facility] [id number] [place] [address] 06795- 0869 Aug, [facility] [id number] [place] [address] 88854- 1868 Jul, Anxiety F41.9 and Mood disorder F39 [facility] [id number] [place] [address] 89817- 0537 Jul, Diabetes type 2, controlled E11.9 [facility] [id number] [place] [address] 43057- 6808 Jun, Anxiety F41.9 [facility] [id number] [place] [address] 68748- 3560 May, [facility] [id number] [place] [address] 92711- 8277 May, [facility] [id number] [place] [address] 90663- 5947 May, Nausea R11.0 ; Other chronic pain G89.29 and Pain in right knee M25.561 [facility] [id number] [place] [address] 94280- 3662 May, [facility] [address] 19842- 3200 Apr, Tear of medial meniscus of right knee, current, unspecified tear type, subsequent encounter S83.241D and Tear of lateral meniscus of right knee, current, unspecified tear type, subsequent encounter S83.281D [facility] [address] 37453- 6232 Apr, Anxiety F41.9 and Mood disorder F39 [facility] [address] 82754- 0976 Apr, Anxiety F41.9 [facility] [address] 77155- 7883 Apr, [facility] [address] 38577- 6118 Mar, [facility] [id number] [place] [address] 43800- 1827 Mar, Lupus erythematosus L93.0 and Diabetes type 2, controlled E11.9 [facility] [address] 60144- 2126 Mar, Mood disorder F39 [facility] [address] 68674- 1553 Mar, Tear of lateral meniscus of right knee, current, unspecified tear type, initial encounter S83.281A and Osteoarthritis of right knee, unspecified osteoarthritis type M17.9 [facility] [id number] [place] [address] 65049- 4783 02 Mar, 2016 [place] [address] [address]- 9284 Feb, Mood disorder F39 [facility] [id number] [place] [address] 85194- 2606 Feb, Rash R21 [facility] [address] [place] [address] 85874- 4893 Feb, [facility] [id number] [place] [address] 20523- 6675 Jan, Other chronic pain G89.29 and Muscle spasm M62.838 [facility] [id number] [place] [address] 30969- 6821 Jan, Mood disorder F39 [facility] [id number] [place] [address] 95261- 0008 Jan, Pain in right knee M25.561 ; Other chronic pain G89.29 and Muscle spasm M62.838 [facility] [id number] [place] [address] 99544- 5371 Dec, [facility] [id number] [place] [address] 63001- 4000 Dec, [facility] [id number] [place] [address] 22572- 9667 Nov, [facility] [id number] [place] [address] 83818- 7368 Nov, Mood disorder F39 [facility] [address] [place] [address] 98917- 1430 Nov, Diabetes type 2, controlled E11.9 ; Bronchitis J40 ; Edema, unspecified type R60.9 ; Weight gain R63.5 and Right knee pain, unspecified chronicity M25.561 [facility] [address] [place] [address] 25387- 1212 Oct, Mood disorder F39 [facility] [id number] [place] [address] 71916- 3372 Oct, Lupus erythematosus L93.0 and Bilateral edema of lower extremity R60.0 [facility] [id number] [place] [address] 28041- 0533 Oct, Mood disorder F39 and Anxiety F41.9 [facility] [id number] [place] [address] 32620- 2997 September, Mood disorder F39 ; Anxiety F41.9 and Anger reaction R45.4 [facility] [id number] [place] [address] 19825- 9247 September, Diabetes type 2, controlled E11.9 ; Edema, unspecified type R60.9 and Fatigue, unspecified type R53.83 [facility] [id number] [place] [address] 52297- 5430 Aug, Mood disorder F39 and Generalized anxiety disorder F41.1 [facility] [id number] [place] [address] 67287- 1108 Aug, Diabetes type 2, controlled E11.9 ; Sinusitis J32.9 and Mood disorder F39 [facility] [id number] [place] [address] 76563- 0407 Aug, Lupus erythematosus L93.0 [facility] [id number] [place] [address] 25673- 5746 Aug, [facility] [id number] [place] [address] 97546- 5322 Aug, [facility] [id number] [place] [address] 30986- 6301 Jul, Diabetes type 2, controlled E11.9 [facility] [id number] [place] [address] 69284- 3978 Jul, Mood disorder F39 and Depression F32.9 [facility] [address] [place] [address] 73028- 5866 Jul, Lupus erythematosus L93.0 and Diabetes type 2, controlled E11.9 [facility] [address] [address]- 8314 07 Jul, 2015 Mood disorder F39 and Anxiety F41.9 [facility] [address], [place] [address]- 1766 Jul, [facility] [id number] [place] [address] 82076 2546 Jul, [facility] [id number] [place] [address] 79077 2546 Jun, Mood disorder F39 and Anxiety F41.9 [facility] [id number] [place] [address] 16081- 5956 Jun, Mood disorder F39 [facility] [address] [place] [address] 77012- 3636 Jun, [facility] [id number] [place] [address] 48681- 6729 Jun, [facility] [id number] [place] [address] 02277- 3053 Jun, Mood disorder F39 [facility] [id number] [place] [address] 06381- 9796 Jun, [facility] [address] [address]- 3247 May, [facility] [address] [address] 2545 May, [facility] [address] [address] 2546 May, [facility] [address] [place] [address] 24941- 7156 May, [facility] [address] [address]- 4624 May, Anxiety F41.9 ; Dermatomyositis M33.90 and Diabetes type 2, controlled E11.9 [facility] [id number] [place] [address] 65736 -8358 May, 2016 Sinusitis J32.9 and Cough R05 [facility] [id number] [place] [address] 50223- 8656 May, Mood disorder F39 [facility] [id number] [place] [address] 69667- 9052 May, Adjustment disorder with mixed anxiety and depressed mood F43.23 [facility] [id number] [place] [address] 41821- 2606 Apr, [facility] [id number] [place] [address] 97319- 2938 Apr, [facility] [id number] [place] [address] 14392- 4780 Apr, Generalized anxiety disorder F41.1 and Mood disorder F39 [facility] [id number] [place] [address] 28862- 4447 Mar, [facility] [id number] [place] [address] 53470- 0883 Mar, [facility] [id number] [place] [address] 48957- 6576 Mar, [facility] [id number] [place] [address] 04472- 7804 Mar, Mood disorder F39 [facility] [id number] [place] [address] 57061- 4526 Feb, [facility] [id number] [place] [address] 64788- 6209 Feb, Diabetes E11.9 and Bronchitis J40 [facility] [id number] [place] [address] 29547- 5471 Feb, [facility] [id number] [place] [address] 01775- 4909 Feb, [facility] [id number] [place] [address] 44052- 7735 Feb, Major depression, recurrent, full remission F33.42 and KELLY ( generalized anxiety disorder) F41.1 [facility] [id number] [place] [address] 02988- 9662 Feb, [place] [address] 39528- 2646 Feb, Single major depressive episode, in partial or unspecified remission F32.5 [place] [address] 74254- 7648 Jan, Fatigue 780.79 [facility] [id number] [place] [address] 58605- 8548 Jan, [facility] [facility] [address] 11338- 0259 Jan, Diabetes with other specified manifestations, type II or unspecified type, not stated as uncontrolled 250.80 [facility] [id number] [place] [address] 01972- 7114 Jan, [facility] [id number] [place] [address] 55225- 2177 Dec, Hot flashes 627.2 ; Memory loss 780.93 and Joint pain 719.40 [facility] [id number] [place] [address] 89039- 4536 Dec, Major depression, recurrent 296.30 ; Generalized anxiety disorder 300.02 ; Adjustment disorder with depressed mood 309.0 and No condition on Greenup II V71.09 [facility] [id number] [place] [address] 87513- 3834 Dec, [facility] [id number] [place] [address] 01336- 8365 Nov, Cognitive and neurobehavioral dysfunction 294.9 ; Major depressive disorder, recurrent episode, moderate degree 296.32 and Anxiety state , unspecified 300.00 [place] [address] [place] [address] 29562- 9796 Nov, [facility] [id number] [place] [address] 86352- 8769 Nov, Bronchitis 490 and Diabetes with other specified manifestations, type II or unspecified type, not stated as uncontrolled 250.80 [place] [id number] [place] [address] 06020- 5113 Nov, Major depressive disorder, recurrent episode, moderate 296.32 and Anxiety disorder, unspecified 300.00 [place] [id number] [place] [address] 53305- 7134 Nov, Anxiety, generalized 300.02 ; Intermittent explosive disorder 312.34 ; No condition on Greenup II V71.09 and No condition on axis III V71.[address] 22019- 0980 Oct, Diabetes with other specified manifestations, type II or unspecified type, not stated as uncontrolled 250.80 ; Urinary tract infection, site not specified 599.0 and Bronchitis [address] [place] [id number] [place] [address] 05334- 3533 Oct, Intermittent explosive disorder 312.34 ; Bipolar 1 disorder , depressed, moderate 296.52 ; Major depression, chronic 296.20 ; No condition on Greenup II V71.09 and No condition on axis III V71.09 [place] [address] [place] [address] 38465- 7130 Oct, Major depressive disorder, recurrent episode, moderate 296.32 ; Anxiety state 300.00 ; Cognitive decline 294.9 and No condition on Greenup II V71.[address] [place] [address] 49504- 5219 Oct, [address] [place] [address] 60924- 6062 Oct, Major depressive disorder, recurrent episode, moderate 296.32 ; Anxiety disorder, unspecified 300.00 and Persistent disorder of initiating or maintaining sleep 307.42 [facility] [id number] [place] [address] 42522201- 6119 September, Diabetes with other specified manifestations, type II or unspecified type, not stated as uncontrolled 250.80 ; Memory loss 780.93 and Cognitive complaints 799.59 [facility] [id number] [place] [address] 27000- 1091 September, No condition on Greenup II V71.09 ; Major depression, recurrent 296.30 and Persistent mood [affective] disorder, unspecified 296.90 [facility] [id number] [place] [address] 120952- 3030 Aug, [facility] [id number] [place] [address] 346700- 7767 Aug, [facility] [id number] [place] [address] 91305- 4937 Aug, [facility] [id number] [place] [address] 01040894- 0243 Jul, [facility] [id number] [place] [address] 787269- 2008 Jul, [facility] [id number] [place] [address] 177780- 3654 Jul, [facility] [id number] [place] [address] 774909- 6977 Jul, [facility] [id number] [place] [address] 705342- 8154 Jul, [facility] [id number] [place] [address] 56947- 8811 Jun, [facility] [id number] [place] [address] 19412- 2196 Jun, [facility] [id number] [place] [address] 44460- 6540 Jun, [facility] [place] [facility] [address] [id number] [place] [address]- 4518 Jun, 2014 [facility] [place] [facility] [address] [id number] [place] [address]- 7352 Jun, 2014 [facility] [place] [facility] [address] [facility] [id number] [place] [address]- 8385 Jun, 2014 [facility] [place] [facility] [address] [id number] [place] [address]- 9772 Jun, 2014 [facility] [place] [facility] [address] [id number] [place] [address]- 0123 Jun, 2014 [facility] [place] [facility] [address] [id number] [place] [address]- 6567 Jun, 2014 [facility] [place] [facility] [address] [facility] [id number] [place] [address]- 7986 Jun, 2014 [facility] [place] [facility] [address] [facility] [id number] [place] [address]- 7821 Jun, 2014 [facility] [place] [facility] [address] [facility] [id number] [place] [address]- 8959 Jun, 2014 [facility] [place] [facility] [address] [facility] [id number] [place] [address]- 1869 Jun, 2014 [facility] [place] [facility] [address] [facility] [id number] [place] [address] May, [facility] [place] [facility] [address] [id number] [address] May, [facility] [place] [facility] [address] [id number] [place] [address] Apr, [facility] [place] [facility] [address] [facility] [id number] [place] [address] Apr, [facility] [place] [facility] [address] [facility] [id number] [place] [address] Apr, [facility] [place] [facility] [address] [id number] [place] [address] Apr, [facility] [place] [facility] [address] [id number] [place] [address] Apr, [facility] [place] [facility] [address] [id number] [place] [address] Apr, [facility] [place] [facility] [address] [id number] [place] [address] Apr, [facility] [place] [facility] [address] [id number] [place] [address] Apr, [facility] [place] [facility] [address] [id number] [place] [address] Apr, [facility] [place] [facility] [address] [id number] [place] [address] Apr, [facility] [place] [facility] [address] [id number] [place] [address] Apr, [facility] [place] [facility] [address] [id number] [place] [address] Apr, [facility] [place] [facility] [address] [id number] [place] [address] Apr, [facility] [place] [facility] [address] [id number] [place] [address] Apr, [facility] [place] [facility] [address] [id number] [place] [address] Apr, [facility] [place] [facility] [address] [id number] [place] [address] Apr, [facility] [place] [facility] [address] [id number] [place] [address] Apr, [facility] [place] [facility] [address] [id number] [place] [address] Apr, [facility] [place] [facility] [address] [id number] [place] [address] Apr, [facility] [place] [facility] [address] [id number] [place] [address] Apr, [facility] [place] [facility] [address] [id number] [place] [address] Mar, [facility] [place] [facility] [address] [id number] [place] [address] Mar, [facility] [place] [facility] [address] [id number] [place] [address] Mar, [facility] [place] [facility] [address] [id number] [place] [address] Mar, [facility] [place] [facility] [address] [id number] [place] [address] 9815 Mar, [facility] [place] [facility] [address] [id number] [place] [address] 39[address] Mar, [facility] [place] [facility] [address] [id number] [place] [address] 3316 Mar, [facility] [place] [facility] [address] [id number] [place] [address] 6728 Mar, [facility] [place] [facility] [address] [id number] [place] [address]90 Mar, [facility] [place] [facility] [address] [id number] [place] [address] 2609 Mar, [facility] [place] [facility] [address] [id number] [place] [address] 8367 Mar, [facility] [place] [facility] [address] [id number] [place] [address] 0433 Mar, [facility] [place] [facility] [address] [id number] [place] [address] 8076 Mar, [facility] [place] [facility] [address] [id number] [place] [address] 8387 Feb, [facility] [place] [facility] [address] [id number] [place] [address]- 2422 Feb, [facility] [place] [facility] [address] [id number] [place] [address]- 6426 30 Feb, 2014 [facility] [place] [facility] [address] [id number] [place] [address]- 2005 Feb, [facility] [place] [facility] [address] [id number] [place] [address] 8820 Feb, [facility] [place] [facility] [address] [id number] [place] [address]- 1785 Feb, [facility] [place] [facility] [address] [id number] [place] [address]- 2249 Feb, [facility] [place] [facility] [address] [id number] [place] [address]- 4511 Feb, [facility] [place] [facility] [address] [id number] [place] [address]- 0928 Feb, [facility] [place] [facility] [address] [id number] [place] [address]- 4484 Feb, [facility] [place] [facility] [address] [id number] [place] [address]- 9951 Feb, [facility] [place] [facility] [address] [id number] [place] [address]- 6786 Feb, [facility] [place] [facility] [address] [id number], [place] [address] Feb, [facility] [place] [facility] [address] [id number], [place] [address] 07 Feb, 2014 [facility] [place] [facility] [address] [id number] [place] [address]- 7901 07 Feb, 2014 [facility] [place] [facility] [address] [id number] [place] [address]- 2160 10 Jan, 2014 [facility] [place] [facility] [address] [id number] [place] [address]- 1805 08 Jan, 2013 [facility] [place] [facility] [address] [id number] [place] [address] 63[address] 08 Jan, 2013 [facility] [place] [facility] [address] [id number] [place] [address]- 3776 Jan, [facility] [place] [facility] [address] [id number] [place] [address]- 6449 Jan, [facility] [place] [facility] [address] [id number] [place] [address]- 4853 Dec, [facility] [place] [facility] [address] [id number] [place] [address]- 9083 Dec, [facility] [place] [facility] [address] [id number] [place] [address]- 2524 Dec, [facility] [place] [facility] [address] [id number] [place] [address]- 9186 Dec, [facility] [place] [facility] [address] [id number] [place] [address]- 2434 Nov, [facility] [place] [facility] [address] [id number] [place] [address]- 6983 Nov, [facility] [place] [facility] [address] [id number] [place] [address]- 0275 Nov, [facility] [place] [facility] [address] [id number] [place] [address]- 5967 Nov, [facility] [place] [facility] [address] [id number] [place] [address]- 5688 Nov, [facility] [place] [facility] [address] [id number] [place] [address]- 4787 Nov, [facility] [place] [facility] [address] [id number] [place] [address]- 0823 Nov, [facility] [place] [facility] [address] [id number] [place] [address]- 5615 Nov, [facility] [place] [facility] [address] [id number] [place] [address]- 7360 Nov, [facility] [place] [facility] [address] [id number] [place] [address]- 5633 Nov, [facility] [place] [facility] [address] [id number] [place] [address]- 7798 Oct, [facility] [place] [facility] [address] [id number] [place] [address]- 6406 Oct, [facility] [place] [facility] [address] [id number] [place] [address]- 7919 September, [facility] [place] [facility] [address] [id number] [place] [address] September, [facility] [place] [facility] [address] [id number] [place] [address]- 7406 September, [facility] [place] [facility] [address] [id number] [place] [address]- 5064 September, [facility] [place] [facility] [address] [id number] [place] [address]- 9231 Aug, [facility] [place] [facility] [address] [id number] [place] [address]- 4198 Aug, [facility] [place] [facility] [address] [id number] [place] [address]- 1280 Aug, [facility] [place] [facility] [address] [id number] [place] [address]- 4418 Jul, [facility] [place] [facility] [address] [id number] [place] [address]- 9746 24 Jul, 2013 [facility] [place] [facility] [address] [id number] [place] [address]- 9842 Jul, [facility] [place] [facility] [address] [id number] [place] [address] [address] Jul, [facility] [place] [facility] [address] [id number] [place] [address]- 4982 May, [facility] [place] [facility] [address] [id number], [place] [address] 8513 May, [facility] [place] [facility] [address] [id number] [place] [address]- 7165 May, [facility] [place] [facility] [address] [id number] [place] [address]- 7765 Mar, [facility] [place] [facility] [address] [id number] [place] [address]- 7521 Mar, [facility] [place] [facility] [address] [id number] [place] [address]- 1599 Mar, [facility] [place] [facility] [address] [id number] [place] [address]- 6881 Mar, [facility] [place] [facility] [address] [id number] [place] [address]- 5682 Feb, [facility] [place] [facility] [address] [id number] [place] [address]- 9107 Feb, [facility] [place] [facility] [address] [id number] [place] [address]- 8535 Feb, [facility] [place] [facility] [address] [id number] [place] [address]- 8254 16 Jan, 2013 [facility] [place] [facility] [address] [id number] [place] [address]- 2385 Jan, [facility] [place] [facility] [address] [id number] [place] [address]- 4907 Jan, [facility] [place] [facility] [address] [id number], [place] [address] 8959 Dec, [facility] [place] [facility] [address] [id number] [place] [address]- 4223 Dec, [facility] [place] [facility] [address] [facility] [id number] [place] [address]- 6231 Dec, [facility] [place] [facility] [address] [facility] [id number] [place] [address]- 4197 Dec, [facility] [place] [facility] [address] [id number] [place] [address]- 1260 Nov, [facility] [address] [id number] [place] [address]- 9138 Oct, [facility] [place] [facility] [address] [id number] [place] [address]- 3526 Oct, [facility] [address] [id number] [place] [address]- 1981 September, [facility] [place] [facility] [address] [id number] [place] [address]- 4942 September, [facility] [address] [id number] [place] [address]- 3807 September, [facility] [address] [id number] [place] [address]- 0910 Aug, [facility] [place] [facility] [address] [id number] [place] [address]- 6265 Aug, [facility] [address] [id number] [place] [address]- 0595 Aug, [facility] [address] [id number] [place] [address]- 3359 Aug, [facility] [address] [id number] [place] [address]- 6844 26 Jul, 2012 [facility] [place] [facility] [address] [id number] [place] [address]- 3391 Jul, [facility] [place] [facility] [address] [id number] [place] [address]- 4438 21 Jul, 2012 [facility] [place] [facility] [address] [id number] [place] [address]- 2614 15 Jul, 2012 [facility] [place] [facility] [address] [id number] [place] [address]- 1851 14 Jul, 2012 [facility] [place] [facility] [address] [id number] [place] [address]- 7300 Jul, [facility] [address] [id number] [place] [address]- 0684 Jul, [facility] [place] [facility] [address] [id number] [place] [address]- 9848 Jun, [facility] [place] [facility] [address] [id number] [place] [address]- 3476 Jun, [facility] [place] [facility] [address] [id number] [place] [address]- 9320 Jun, [facility] [place] [facility] [address] [id number] [place] [address]- 0637 Jun, [facility] [place] [facility] [address] [id number] [place] [address]- 6631 May, [facility] [place] [facility] [address] [id number] [place] [address]- 6083 May, [facility] [place] [facility] [address] [id number] [place] [address]- 9960 May, [facility] [place] [facility] [address] [id number] [place] [address]- 1197 May, [facility] [place] [facility] [address] [id number] [place] [address]- 8520 May, [facility] [place] [facility] [address] [id number] [place] [address]- 6104 Apr, [facility] [place] [facility] [address] [id number] [place] [address]- 0778 Apr, [facility] [place] [facility] [address] [id number] [place] [address]- 8198 Mar, [facility] [place] [facility] [address] [id number] [place] [address]- 0843 Mar, [facility] [place] [facility] [address] [id number] [place] [address]- 1731 Mar, [facility] [place] [facility] [address] [id number] [place] [address]- 5456 Mar, [facility] [place] [facility] [address] [id number] [place] [address]- 6553 Mar, [facility] [place] [facility] [address] [id number] [place] [address]- 7136 Mar, [facility] [place] [facility] [address] [id number] [place] [address]- 6549 Mar, [facility] [place] [facility] [address] [id number] [place] [address]- 6946 Mar, [facility] [place] [facility] [address] [id number] [place] [address]- 6052 Mar, [facility] [place] [facility] [address] [id number] [place] [address]- 3756 Mar, [facility] [place] [facility] [address] [id number] [place] [address]- 0965 Feb, [facility] [place] [facility] [address] [id number] [place] [address]- 4625 Feb, [facility] [place] [facility] [address] [id number] [place] [address]- 3891 Feb, [facility] [place] [facility] [address] [id number] [place] [address]- 9888 Feb, [facility] [place] [facility] [address] [id number] [place] [address]- 3039 Feb, [facility] [place] [facility] [address] [id number] [place] [address]- 8497 Feb, [facility] [place] [facility] [address] [id number] [place] [address]- 5560 Feb, [facility] [place] [facility] [address] [id number] [place] [address]- 8478 Jan, [facility] [place] [facility] [address] [id number] [place] [address]- 3439 Jan, [facility] [place] [facility] [address] [id number] [place] [address]- 3882 Dec, [facility] [place] [facility] [address] [id number] [place] [address]- 0381 Dec, [facility] [place] [facility] [address] [id number] [place] [address]- 5426 Dec, [facility] [place] [facility] [address] [id number] [place] [address]- 9546 Dec, [facility] [place] [facility] [address] [id number] [place] [address]- 2630 Dec, [facility] [place] [facility] [address] [id number] [place] [address]- 9164 Dec, [facility] [place] [facility] [address] [id number] [place] [address]- 3707 Nov, [facility] [place] [facility] [address] [id number] [place] [address]- 5539 Nov, [facility] [place] [facility] [address] [id number] [place] [address]- 5252 Nov, [facility] [place] [facility] [address] [id number] [place] [address]- 0129 Nov, [facility] [place] [facility] [address] [id number] [place] [address]- 1068 September, [facility] [place] [facility] [address] [id number] [place] [address]- 4559 September, [facility] [place] [facility] [address] [id number] [place] [address]- 2312 September, [facility] [place] [facility] [address] [id number] [place] [address]- 6926 Jul, [facility] [place] [facility] [address] [id number] [place] [address]- 3425 Jun, [facility] [place] [facility] [address] [id number], [place] [address]- 2273 20 Jun, 2011 [facility] [address] [id number] [address]- 6669 13 Jun, 2011 [facility] [id number] [address] 37[address] Apr, [facility] [id number] [address]- 9932 Mar, [facility] [id number] [address]- 0438 Mar, [facility] [id number] [address] [address] Feb, [facility] [id number], [place] [address]- 6196 Feb, [facility] [id number], [place] [address]- 5793 Feb, [facility] [id number], [place] [address]- 1400 Jul, [facility] [address] [id number], [place] [address]- 4588 Feb, IMMUNIZATIONS No Known Immunizations SOCIAL HISTORY Never Assessed REASON FOR VISIT f/u PLAN OF CARE Activity Details Follow Up 4 Weeks Reason:Anxiety, mood disorder VITAL SIGNS MEDICATIONS Unknown Medications RESULTS No Results PROCEDURES Procedure Date Ordered Result Body Site Psychotherapy, patient &/family, 30 minutes, established patient December 09, 2016 INSTRUCTIONS MEDICATIONS ADMINISTERED No Known Medications MEDICAL (GENERAL) HISTORY Type Description Date Medical History type II diabetes-dx'd 12/2010 Medical History dysfunctional uterine bleeding--endometrial bx 12/2010 Medical History asthma Medical History hypertension Medical History obesity Medical History anxiety Medical History autoimmune disease Surgical History x1 Hospitalization History child Hospitalization History Asthma
--- OUTSIDE RECORDS SUMMARY | 2018-02-03 00:06 | XMS REPORT ---
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 Name Role Phone MACY TAMAYO Unavailable PROBLEMS Type Condition ICD9-CM Code [id number] Code Onset Dates Condition Status SNOMED Code Problem Menopause Z78.0 Active 015961418 Assessment Anxiety F41.9 Apr, Active 77364450 Problem Anxiety F41.9 Active 94555713 Problem Osteoarthritis of right knee, unspecified osteoarthritis type M17.9 Active 860880938 Problem Allergic rhinitis due to pollen J30.1 Active 63290264 Problem Mood disorder F39 Active 83747096 Problem Lupus erythematosus L93.0 Active 351296317 Problem Diabetes type 2, controlled E11.9 Active 01640278 ALLERGIES Substance Reaction Event Type Date Status Fluarix Quadrivalent vomiting Drug Allergy Apr, Active Zoloft makes very angry Drug Allergy Apr, Active Fluarix vomiting Drug Allergy Apr, Active Aspirin rash Drug Allergy Apr, Active Latex, Natural Rubber rash Non Drug Allergy Apr, Active SOCIAL HISTORY No smoking Hx information available PLAN OF CARE VITAL SIGNS Height 62 in 2016-05-06 Weight 239.3 lbs 2016-05-06 Heart Rate 88 bpm 2016-05-06 Respiratory Rate 20 2016-05-06 BMI 43.76 kg/m2 2016-05-06 Blood pressure systolic 112 mmHg 2016-05-06 Blood pressure diastolic 80 mmHg 2016-05-06 MEDICATIONS Medication Instructions Dosage Frequency Start Date End Date Duration Status Lasix 20 mg Orally Once a day 1 tablet 24h Nov, 30 day(s) Active Loratadine 10 mg Orally Once a day TAKE ONE TABLET BY MOUTH DAILY 24h 30 Active Glucocard Expression Test - as directed 24h Nov, Active Methotrexate 2.5 MG Orally 1 time per week 6 28 Active Glucocard Expression Monitor w/Device as directed Nov, Active Folic Acid 1 MG 1 tablet 30 Active Lisinopril-Hydrochlorothiazide 20-25 MG Orally Once a day 1 tablet 24h 30 Active PredniSONE 20 MG Orally Once a day 1 tablet 24h 20 May, 2015 30 Active Omeprazole 20 mg Orally Once a day 1 capsule 24h 30 Active Nyamyc 790148 UNIT/GM APPLY TO AFFECTED AREA 12h 5 Active BD U/F Mini Pen Needle 31G X 5 MM SQ Once a day as directed 24h Jul, Active Xanax 2 MG Orally Twice a day 1 tablet 12h Apr, Active Potassium Chloride Marie ER 20 MEQ Orally Once a day 1 tablet with food 24h Active Spironolactone 25 MG Orally Once a day 1 tablet 24h Active Victoza 0.6 mg/0.1 mL (18 mg/3 mL) inject 0.3 milliliter (1.8 mg) by subcutaneous route once daily Dec, Active Tessalon Perles 200 mg Orally Three times a day prn cough 1 capsule as needed May, Active Actos 30 MG Orally Once a day 1 tablet 24h Jul, 30 Active Magnesium Oxide 400 MG Orally Once a day 1 tablet 24h Jan, Jul, 30 day(s) Active HydrOXYzine HCl 25 MG Orally every 8 hrs 1 tablet as needed 8h Feb, 30 day(s) Active Proventil HFA 108 (90 Base) MCG/ACT 2 puffs as needed 6h Active RESULTS No Results PROCEDURES Procedure Date Ordered Related Diagnosis Body Site Office Visit, Est Pt., Level 3 May 06, 2016 IMMUNIZATIONS No Known Immunizations
--- OUTSIDE RECORDS SUMMARY | 2018-02-03 00:07 | XMS REPORT ---
Author Author PATRIC RIVERA [facility] Address [address] [place] [address] Care Team Providers Care Boiling Tub Operator Name Role Phone PATRIC RIVERA Unavailable PROBLEMS Type Condition ICD9-CM Code WNB21-BL Code Onset Dates Condition Status SNOMED Code Problem Plantar warts B07.0 Active 46705668 Problem Lumbago with sciatica, left side M54.42 Active 909720129 Problem Plantar wart of both feet B07.0 Active [id number] Problem Morbid (severe) obesity due to excess calories E66.01 Active 433784137 Problem Dermatomyositis M33.90 Active 063397299 Problem Tachycardia with heart rate 121-140 beats per minute R00.0 Active 2855730 Problem Controlled type 2 diabetes mellitus without complication, without long -term current use of insulin E11.9 Active 533464286 Problem Enlarged thyroid gland E04.9 Active 6677094 Problem Body mass index (BMI) of 45.0-49.9 in adult Z68.42 Active 152894029 Problem Menopause Z78.0 Active 971951660 Problem Allergic rhinitis due to pollen J30.1 Active 14076477 Problem Osteoarthritis of right knee, unspecified osteoarthritis type M17.9 Active 610622316 Problem Anxiety F41.9 Active 33594233 Problem Mood disorder F39 Active 39401753 Problem Other chronic pain G89.29 Active 92457937 Problem Diabetes type 2, controlled E11.9 Active 28758561 Problem Arthritis M19.90 Active 6832090 ALLERGIES No Information ENCOUNTERS Encounter Location Date Diagnosis [facility] [address] [facility] [id number] [address] Aug, Mood disorder F39 [facility] [address] [facility] [id number] [address] Aug, Other chronic pain G89.29 ; Controlled type 2 diabetes mellitus without complication, without long-term current use of insulin E11.9 ; Low back pain M54.5 and Tinea corporis B35.[address] [address]- [address]71 Aug, Mood disorder F39 and Anxiety F41.9 [place] [address] [address]- 2498 Aug, Mood disorder F39 and Anxiety F41.9 [place] [address] 8[address]25- 1598 Jul, [facility] [address] [address] Jul, Scabies B86 and BMI 45.0-49.9, adult Z68.[address] 00[address]- 59[address] Jul, [place] [address] [address]2372- 2563 Jul, Mood disorder F39 and Anxiety F41.[address] [address]60- 5977 Jul, [facility] [place] [address] [address] 27 Jun, 2017 Bronchitis J40 ; Dark urine R82.99 and BMI 45.0-49.9, adult Z68.[address] [address]- [address] 14 Jun, 2017 Acute pain of right shoulder M25.511 and Acute pain of right knee M25.[address] [address]- [address] May, BMI 40.0-44.9, adult Z68.41 ; Controlled type 2 diabetes mellitus without complication, without long-term current use of insulin E11.9 ; Muscle cramping R25.2 ; Hot flashes R23.2 ; Mood disorder F39 ; Anxiety F41.9 and Morbid (severe) obesity due to excess calories E66.01 [place] [id number] [place] [address] 27214- 1000 May, BMI 40.0-44.9, adult Z68.41 ; Controlled type 2 diabetes mellitus without complication, without long-term current use of insulin E11.9 ; Muscle cramping R25.2 and Hot flashes R23.2 [place] [id number] [place] [address] 33452- 7613 May, Tachycardia with heart rate 121-140 beats per minute R00.0 ; Morbid (severe) obesity due to excess calories E66.01 ; Diabetes type 2, controlled E11.9 and Enlarged thyroid gland E04.9 [place] [id number] [place] [address] 13032- 4234 25 May, 2017 Encounter for well woman [...] Dysuria R30.0 and Screening breast examination Z12.31 [place] [id number] [place] [address] 80256- 4564 Apr, Mood disorder F39 ; Other chronic pain G89.29 and Anxiety F41.9 [place] [id number] [place] [address] 03954- 7786 Apr, Lumbago with sciatica, left side M54.42 and Other chronic pain G89.29 [place] [address] [place] [id number] [place] [address] 05194- 3978 Apr, Lupus erythematosus L93.0 [place] [id number] [place] [address] 71267- 7664 Mar, Plantar wart of both feet B07.0 [facility] [address] [place] [id number] [place] [address] 50799- 3436 Mar, Lupus erythematosus L93.0 and Sinus drainage J34.89 [facility] [address] [place] [id number] [place] [address] 06669- 2546 Mar, Mood disorder F39 ; Other chronic pain G89.29 and Anxiety F41.9 [facility] [address] 26896- 2765 Mar, Mood disorder F39 ; Arthritis M19.90 and Plantar warts B07.0 [facility] [address] 86029- 3936 Feb, Lupus erythematosus L93.0 [facility] [address] [place] [id number] [place] [address] 06072- 8105 Feb, Other chronic pain G89.29 [facility] [address] [place] [id number] [place] [address] 19377- 6572 Feb, Mood disorder F39 and Anxiety F41.9 [facility] [address] [place] [id number] [place] [address] 63489- 9925 Jan, [facility] [address] [place] [id number] [place] [address] 74278- 8366 Jan, Mood disorder F39 [facility] [address] [place] [id number] [place] [address] 46699- 3009 Dec, Nail, ingrown L60.0 [facility] [address] [place] [id number] [place] [address] 58436- 5853 Dec, Nail, ingrown L60.0 [facility] [address] [place] [id number] [place] [address] 60602- 8518 Nov, Mood disorder F39 and Anxiety F41.9 [facility] [address] [place] [id number] [place] [address] 94306- 6325 Nov, Sinus drainage J34.89 ; Hot flashes R23.2 ; Anxiety F41.9 and Diabetes type 2, controlled E11.9 [facility] [address] [place] [id number] [place] [address] 53228- 5050 Nov, Nail, ingrown L60.0 [facility] [address] [place] [id number] [place] [address] 55592- 4613 Oct, Anxiety F41.9 and Mood disorder F39 [facility] [address] [place] [id number] [place] [address] 89746- 3765 Oct, Nail, ingrown L60.0 and Anxiety F41.9 [facility] [address] [place] [id number] [place] [address] 83233- 6620 Oct, Lupus erythematosus L93.0 [facility] [address] [place] [id number] [place] [address] 89061- 4786 September, [facility] [address] 25099- 3226 September, [facility] [address] [place] [id number] [place] [address] 47761- 6281 September, Lupus erythematosus L93.0 [facility] [address] [place] [id number] [place] [address] 27243- 1573 Aug, [facility] [address] [place] [id number] [place] [address] 76395- 2460 Aug, Mood disorder F39 and Anxiety F41.9 [facility] [address] [place] [id number] [place] [address] 81355- 6719 Aug, Lupus erythematosus L93.0 ; Diabetes type 2, controlled E11.9 and Localized edema R60.0 [facility] [address] [place] [id number] [place] [address] 43946- 9102 Aug, [facility] [address] [place] [id number] [place] [address] 83842- 8843 Jul, Anxiety F41.9 and Mood disorder F39 [place] [address] [place] [id number] [place] [address] 57080- 4068 Jul, Diabetes type 2, controlled E11.9 [place] [address] [place] [id number] [place] [address] 01898- 2286 Jun, Anxiety F41.9 [place] [address] [place] [id number] [place] [address] 50151- 3874 May, [place] [address] 08895- 2972 May, [place] [address] 58007- 3270 May, Nausea R11.0 ; Other chronic pain G89.29 and Pain in right knee M25.561 [place] [address] [place] [id number] [place] [address] 56528- 3422 May, [place] [address] 84114- 5610 Apr, Tear of medial meniscus of right knee, current, unspecified tear type, subsequent encounter S83.241D and Tear of lateral meniscus of right knee, current, unspecified tear type, subsequent encounter S83.281D [place] [address] [place] [id number] [place] [address] 93699- 7972 Apr, Anxiety F41.9 and Mood disorder F39 [place] [address] [place] [id number] [place] [address] 96951- 5161 Apr, Anxiety F41.9 [place] [address] [place] [id number] [place] [address] 74465- 0383 Apr, [place] [address] [place] [id number] [place] [address] 60734- 2420 Mar, [place] [address] [place] [id number] [place] [address] 78539- 9045 Mar, Lupus erythematosus L93.0 and Diabetes type 2, controlled E11.9 [place] [address] [place] [address] 08894- 3961 Mar, Mood disorder F39 [facility] [address] [place] [id number] [place] [address] 11905- 1150 Mar, Tear of lateral meniscus of right knee, current, unspecified tear type, initial encounter S83.281A and Osteoarthritis of right knee, unspecified osteoarthritis type M17.9 [facility] [address] [place] [id number] [place] [address] 21286- 5655 Mar, [facility] [address] [place] [id number] [place] [address] 40442- 4290 Feb, Mood disorder F39 [facility] [address] [place] [id number] [place] [address] 47401- 7196 Feb, Rash R21 [facility] [address] [place] [id number] [place] [address] 28743- 1516 Feb, [facility] [address] [place] [id number] [place] [address] 69012 2545 Jan, Other chronic pain G89.29 and Muscle spasm M62.838 [facility] [address] [place] [id number] [place] [address] 52705 2546 Jan, Mood disorder F39 [facility] [address] [place] [id number] [place] [address] 71636 2540 Jan, Pain in right knee M25.561 ; Other chronic pain G89.29 and Muscle spasm M62.838 [facility] [address] [place] [address] 10977 2546 Dec, [facility] [address] [place] [id number] [place] [address] 60591 2546 Dec, [facility] [address] [place] [id number] [place] [address] 67534 2546 Nov, [facility] [address] [place] [id number] [place] [address] 19412- 6985 Nov, Mood disorder F39 [facility] [address] [place] [address] 12979- 8650 Nov, Diabetes type 2, controlled E11.9 ; Bronchitis J40 ; Edema, unspecified type R60.9 ; Weight gain R63.5 and Right knee pain, unspecified chronicity M25.561 [facility] [address] [place] [id number] [place] [address] 96572- 7019 Oct, Mood disorder F39 [place] [address] [place] [id number] [place] [address] 15213- 0151 Oct, Lupus erythematosus L93.0 and Bilateral edema of lower extremity R60.0 [place] [address] [place] [id number] [place] [address] 08160- 1534 Oct, Mood disorder F39 and Anxiety F41.9 [place] [address] [place] [id number] [place] [address] 15917- 5777 September, Mood disorder F39 ; Anxiety F41.9 and Anger reaction R45.4 [place] [address] [place] [id number] [place] [address] 15497- 2404 September, Diabetes type 2, controlled E11.9 ; Edema, unspecified type R60.9 and Fatigue, unspecified type R53.83 [place] [address] [place] [id number] [place] [address] 98537- 6581 Aug, Mood disorder F39 and Generalized anxiety disorder F41.1 [place] [address] [place] [id number] [place] [address] 66570- 3025 Aug, Diabetes type 2, controlled E11.9 ; Sinusitis J32.9 and Mood disorder F39 [place] [address] [place] [id number] [place] [address] 50432- 9479 Aug, Lupus erythematosus L93.0 [place] [address] [place] [id number] [place] [address] 09549- 5028 Aug, [place] [address] [place] [id number] [place] [address] 63537- 5796 Aug, [facility] [address] [address]- 5576 Jul, Diabetes type 2, controlled E11.9 [facility] [address] [id number] [address] 2546 Jul, Mood disorder F39 and Depression F32.9 [facility] [address] [place] [id number] [place] [address] 55287 2546 Jul, Lupus erythematosus L93.0 and Diabetes type 2, controlled E11.9 [facility] [address] [place] [address] 25703 2546 Jul, Mood disorder F39 and Anxiety F41.9 [facility] [address] [place] [address]- 0716 Jul, [facility] [address] [place] [id number] [place] [address] 40955- 3206 Jul, [facility] [address] [place] [address] 05366- 0321 Jun, Mood disorder F39 and Anxiety F41.9 [facility] [address] [place] [address] 92566- 3472 Jun, Mood disorder F39 [facility] [address] [address]- 6916 18 Jun, 2015 [facility] [address] [address] 2546 15 Jun, 2015 [facility] [address] [address]- 5436 08 Jun, 2015 Mood disorder F39 [facility] [address] 8286 04 Jun, 2015 [facility] [address] [address]- 8359 May, [facility] [address] [address]- 2927 May, [facility] [address] [place] [id number] [place] [address] 48077- 2819 May, [facility] [address] [place] [address] 31173- 3925 May, [facility] [address] [place] [id number] [place] [address] 73126- 8951 May, Anxiety F41.9 ; Dermatomyositis M33.90 and Diabetes type 2, controlled E11.9 [facility] [address] [place] [address] 03920 -6285 May, Sinusitis J32.9 and Cough R05 [facility] [address] [place] [id number] [place] [address] 06063- 2072 May, Mood disorder F39 [facility] [address] [place] [id number] [place] [address] 36590- 0692 May, Adjustment disorder with mixed anxiety and depressed mood F43.23 [facility] [address] [place] [id number] [place] [address] 66214- 7403 Apr, [facility] [address] [place] [id number] [place] [address] 44062- 0935 Apr, [facility] [address] [place] [address] 80838- 5211 Apr, Generalized anxiety disorder F41.1 and Mood disorder F39 [facility] [address] [place] [address] 96037- 2606 Mar, [facility] [address] [place] [id number] [place] [address] 91480- 4455 Mar, [facility] [address] [place] [id number] [place] [address] 83713- 6344 Mar, [facility] [address] [place] [id number] [place] [address] 39273- 1971 Mar, Mood disorder F39 [place] [address] [place] [id number] [place] [address] 37588- 8572 Feb, [place] [address] 99751- 1337 Feb, Diabetes E11.9 and Bronchitis J40 [place] [address] 50121- 3592 Feb, [place] [address] 01150- 2875 Feb, [place] [address] 95218- 9926 Feb, Major depression, recurrent, full remission F33.42 and KELLY ( generalized anxiety disorder) F41.[address] 67082- 9636 Feb, [place] [address] 97966- 5011 Feb, Single major depressive episode, in partial or unspecified remission F32.[address] 86477- 6951 Jan, Fatigue 780.79 [place] [address] 65896- 2491 Jan, [place] [address] 51207- 9807 Jan, Diabetes with other specified manifestations, type II or unspecified type, not stated as uncontrolled 250.80 [place] [address] 30050- 0609 Jan, [place] [address] 40956- 9714 Dec, Hot flashes 627.2 ; Memory loss 780.93 and Joint pain 719.[address] 99913- 9475 Dec, Major depression, recurrent 296.30 ; Generalized anxiety disorder 300.02 ; Adjustment disorder with depressed mood 309.0 and No condition on [place] II V71.09 [place] [address] [place] [address] Dec, [place] [id number] [place] [address] 51305- 2828 Nov, Cognitive and neurobehavioral dysfunction 294.9 ; Major depressive disorder, recurrent episode, moderate degree 296.32 and Anxiety state , unspecified 300.00 [place] [id number] [place] [address] 54077- 6163 Nov, [place] [id number] [place] [address] 00883- 2545 Nov, Bronchitis 490 and Diabetes with other specified manifestations, type II or unspecified type, not stated as uncontrolled 250.80 [place] [id number] [place] [address] 72449- 6008 Nov, Major depressive disorder, recurrent episode, moderate 296.32 and Anxiety disorder, unspecified 300.[address] [place] [address] 32409- 8921 Nov, Anxiety, generalized 300.02 ; Intermittent explosive disorder 312.34 ; No condition on [place] II V71.09 and No condition on axis III V71.09 [address] [place] [address] 78829- 6987 Oct, Diabetes with other specified manifestations, type II or unspecified type, not stated as uncontrolled 250.80 ; Urinary tract infection, site not specified 599.0 and Bronchitis [address] [place] [address] 54782- 0543 Oct, Intermittent explosive disorder 312.34 ; Bipolar 1 disorder , depressed, moderate 296.52 ; Major depression, chronic 296.20 ; No condition on [place] II V71.09 and No condition on axis III V71.09 [place] [address] [address] [address]47 15 Oct, 2014 Major depressive disorder, recurrent episode, moderate 296.32 ; Anxiety state 300.00 ; Cognitive decline 294.9 and No condition on [place] II V71.09 [facility] [address] [place] [id number] [place] [address] 21950- 9897 Oct, [facility] [address] [place] [id number] [place] [address] 51258- 4673 Oct, Major depressive disorder, recurrent episode, moderate 296.32 ; Anxiety disorder, unspecified 300.00 and Persistent disorder of initiating or maintaining sleep 307.42 [place] [address] [place] [id number] [place] [address] 86844- 6329 September, Diabetes with other specified manifestations, type II or unspecified type, not stated as uncontrolled 250.80 ; Memory loss 780.93 and Cognitive complaints 799.59 [place] [address] [place] [id number] [place] [address] 07929- 9573 September, No condition on [place] II V71.09 ; Major depression, recurrent 296.30 and Persistent mood [affective] disorder, unspecified 296.90 [place] [address] [place] [id number] [place] [address] 80993- 8066 Aug, [facility] [address] [place] [address] 76099- 6164 Aug, [facility] [address] [place] [address] 58444- 9536 Aug, [facility] [address] [place] [id number] [place] [address] 74009- 7172 Jul, [facility] [address] [place] [id number] [place] [address] 65225- 9864 Jul, [facility] [address] [place] [id number] [place] [address] [id number]- 8914 Jul, [facility] [address] [place] [id number] [place] [address] [id number]- 1315 Jul, [facility] [place] [facility] [address] [id number] [place] [address]- 9950 Jul, [facility] [place] [facility] [address] [id number] [place] [address]- 6219 Jun, 2014 [facility] [place] [facility] [address] [id number] [place] [address]- 0975 Jun, 2014 [facility] [place] [facility] [address] [id number] [place] [address]- 3012 Jun, 2014 [facility] [place] [facility] [address] [id number] [place] [address]- 0753 Jun, 2014 [facility] [place] [facility] [address] [id number] [place] [address]- 2923 Jun, 2014 [facility] [place] [facility] [address] [facility] [id number] [place] [address]- 9316 Jun, 2014 [facility] [place] [facility] [address] [id number] [place] [address]- 8849 Jun, 2014 [facility] [place] [facility] [address] [facility] [id number] [place] [address]- 3754 Jun, 2014 [facility] [place] [facility] [address] [facility] [id number] [place] [address]- 9649 Jun, 2014 [facility] [place] [facility] [address] [facility] [id number] [place] [address]- 9938 Jun, 2014 [facility] [place] [facility] [address] [facility] [id number] [place] [address]- 7488 Jun, 2014 [facility] [place] [facility] [address] [id number] [place] [address]- 0190 Jun, 2014 [facility] [place] [facility] [address] [id number] [place] [address] Jun, 2014 [facility] [place] [facility] [address] [facility] [id number] [place] [address] May, [facility] [place] [facility] [address] [id number] [place] [address] May, [facility] [address] [id number] [place] [address] Apr, [facility] [place] [facility] [address] [id number] [place] [address] Apr, [facility] [place] [facility] [address] [id number] [place] [address] Apr, [facility] [place] [facility] [address] [id number] [place] [address] Apr, [facility] [place] [facility] [address] [id number] [place] [address] Apr, [facility] [place] [facility] [address] [id number] [place] [address] Apr, [facility] [place] [facility] [address] [id number] [place] [address] Apr, [facility] [place] [facility] [address] [id number] [place] [address] Apr, [facility] [place] [facility] [address] [id number] [place] [address] Apr, [facility] [place] [facility] [address] [id number] [place] [address] Apr, [facility] [place] [facility] [address] [id number] [place] [address] Apr, [facility] [place] [facility] [address] [id number] [place] [address] Apr, [facility] [place] [facility] [address] [id number] [place] [address] Apr, [facility] [place] [facility] [address] [id number] [place] [address] Apr, [facility] [place] [facility] [address] [id number] [place] [address] Apr, [facility] [place] [facility] [address] [id number] [place] [address] Apr, [facility] [place] [facility] [address] [id number] [place] [address] Apr, [facility] [place] [facility] [address] [id number] [place] [address] Apr, [facility] [place] [facility] [address] [id number] [place] [address] Apr, [facility] [place] [facility] [address] [id number] [place] [address] Apr, [facility] [place] [facility] [address] [id number] [place] [address] Mar, [facility] [place] [facility] [address] [id number] [place] [address] Mar, [facility] [place] [facility] [address] [id number] [place] [address] 7763 Mar, [facility] [place] [facility] [address] [id number] [place] [address] 455[address] Mar, [facility] [place] [facility] [address] [id number] [place] [address] 3264 Mar, [facility] [place] [facility] [address] [id number] [place] [address] 2813 Mar, [facility] [place] [facility] [address] [id number] [place] [address] Mar, [facility] [place] [facility] [address] [id number] [place] [address] 1405 Mar, [facility] [place] [facility] [address] [id number] [place] [address] 8100 Mar, [facility] [place] [facility] [address] [id number] [place] [address] 4108 Mar, [facility] [place] [facility] [address] [id number] [place] [address]- 7562 Mar, [facility] [place] [facility] [address] [id number] [place] [address] 1174 Mar, [facility] [place] [facility] [address] [id number] [place] [address] 6683 Mar, [facility] [place] [facility] [address] [id number] [place] [address]- 5433 Feb, [facility] [place] [facility] [address] [id number] [place] [address]- 5624 Feb, [facility] [place] [facility] [address] [id number] [place] [address]- 1633 Feb, [facility] [place] [facility] [address] [id number] [place] [address]- 0740 Feb, [facility] [place] [facility] [address] [id number] [place] [address]- 6743 Feb, [facility] [place] [facility] [address] [id number] [place] [address]- 5331 Feb, [facility] [place] [facility] [address] [id number] [place] [address]- 8080 Feb, [facility] [place] [facility] [address] [id number] [place] [address]- 4421 Feb, [facility] [place] [facility] [address] [id number] [place] [address]- 0906 Feb, [facility] [place] [facility] [address] [id number] [place] [address] 5[address] Feb, [facility] [place] [facility] [address] [id number] [place] [address] 1889 Feb, [facility] [place] [facility] [address] [id number] [place] [address]- 0873 Feb, [facility] [place] [facility] [address] [id number] [place] [address]- 3152 10 Feb, 2014 [facility] [place] [facility] [address] [id number] [place] [address]- 2497 Feb, [facility] [place] [facility] [address] [id number] [place] [address]- 3434 Feb, [facility] [place] [facility] [address] [id number] [place] [address]- 7836 Jan, [facility] [place] [facility] [address] [id number] [place] [address]- 1246 08 Jan, 2014 [facility] [place] [facility] [address] [id number] [place] [address]- 8833 Jan, [facility] [place] [facility] [address] [id number] [place] [address]- 5703 Jan, [facility] [place] [facility] [address] [id number] [place] [address]- 4274 Jan, [facility] [place] [facility] [address] [id number] [place] [address]- 7918 Dec, [facility] [place] [facility] [address] [id number] [place] [address]- 9870 Dec, [facility] [place] [facility] [address] [id number] [place] [address]- 7443 Dec, [facility] [place] [facility] [address] [id number] [place] [address]- 1186 Dec, [facility] [place] [facility] [address] [id number] [place] [address]- 0182 Nov, [facility] [place] [facility] [address] [id number] [place] [address] 1948 Nov, [facility] [place] [facility] [address] [id number] [place] [address]- 5070 Nov, [facility] [place] [facility] [address] [id number] [place] [address]- 1503 Nov, [facility] [place] [facility] [address] [id number] [place] [address]- 4404 Nov, [facility] [place] [facility] [address] [id number] [place] [address]- 0696 Nov, [facility] [place] [facility] [address] [id number] [place] [address]- 4655 Nov, [facility] [place] [facility] [address] [id number] [place] [address]- 3908 Nov, [facility] [place] [facility] [address] [id number] [place] [address]- 0017 Nov, [facility] [place] [facility] [address] [id number] [place] [address]- 7422 Nov, [facility] [place] [facility] [address] [id number] [place] [address]- 8116 Oct, [facility] [place] [facility] [address] [id number] [place] [address]- 3196 Oct, [facility] [place] [facility] [address] [id number] [place] [address]- 5422 September, [facility] [place] [facility] [address] [id number] [place] [address]- 5961 September, [facility] [place] [facility] [address] [id number] [place] [address]- 7006 September, [facility] [place] [facility] [address] [id number] [place] [address]- 8632 September, [facility] [place] [facility] [address] [id number] [place] [address]- 2488 Aug, [facility] [place] [facility] [address] [id number] [place] [address]- 1151 Aug, [facility] [place] [facility] [address] [id number] [place] [address]- 7131 Aug, [facility] [place] [facility] [address] [id number] [place] [address]- 3739 Jul, [facility] [place] [facility] [address] [id number] [place] [address]- 7643 24 Jul, 2013 [facility] [address] [id number] [place] [address]- 0836 14 Jul, 2013 [facility] [place] [facility] [address] [id number] [place] [address]- 6867 14 Jul, 2013 [facility] [address] [id number] [place] [address]- 7086 20 May, 2013 [facility] [address] [id number] [place] [address]- 5634 17 May, 2013 [facility] [address] [id number] [place] [address]- 3748 17 May, 2013 [facility] [address] [id number] [place] [address]- 1151 15 Mar, 2013 [facility] [address] [id number] [place] [address]- 9183 15 Mar, 2013 [facility] [address] [id number] [place] [address]- 1401 Mar, [facility] [address] [id number] [place] [address]- 3223 Mar, [facility] [address] [id number] [place] [address]- 0276 16 Feb, 2013 [facility] [place] [facility] [address] [id number] [place] [address]- 3785 16 Feb, 2013 [facility] [place] [facility] [address] [id number] [place] [address]- 1591 04 Feb, 2013 [facility] [place] [facility] [address] [id number] [place] [address] 16 Jan, 2013 [facility] [place] [facility] [address] [id number] [place] [address]- 5185 12 Jan, 2013 [facility] [place] [facility] [address] [id number] [place] [address]- 5195 Jan, [facility] [place] [facility] [address] [id number] [place] [address]- 0999 Dec, [facility] [address] [id number] [place] [address]- 6756 Dec, [facility] [address] [id number] [place] [address]- 6624 Dec, [facility] [place] [facility] [address] [id number] [place] [address]- 0218 Dec, [facility] [address] [id number] [place] [address]- 5261 Nov, [facility] [address] [id number] [place] [address]- 0098 Oct, [facility] [address] [id number] [place] [address]- 0515 Oct, [facility] [address] [id number] [place] [address]- 2393 September, [facility] [address] [id number] [place] [address]- 5041 September, [facility] [address] [id number] [place] [address]- 7582 September, [facility] [address] [id number] [place] [address]- 3346 Aug, [facility] [place] [facility] [address] [id number] [place] [address]- 1049 Aug, [facility] [place] [facility] [address] [id number] [place] [address]- 4052 Aug, [facility] [place] [facility] [address] [id number] [place] [address]- 1746 Aug, [facility] [place] [facility] [address] [id number] [place] [address]- 5074 Jul, [facility] [place] [facility] [address] [id number] [place] [address]- 6737 25 Jul, 2012 [facility] [address] [id number] [place] [address]- 3305 21 Jul, 2012 [facility] [address] [id number] [place] [address]- 7242 15 Jul, 2012 [facility] [address] [id number] [place] [address]- 7097 14 Jul, 2012 [facility] [place] [facility] [address] [id number] [place] [address]- 7841 13 Jul, 2012 [facility] [address] [id number] [place] [address]- 0976 Jul, [facility] [place] [facility] [address] [id number] [place] [address]- 6296 06 Jun, 2012 [facility] [address] [facility] [id number] [place] [address]- 3323 06 Jun, 2012 [facility] [place] [facility] [address] [id number] [place] [address]- 5103 05 Jun, 2012 [facility] [address] [id number] [place] [address]- 0518 Jun, [facility] [address] [facility] [id number] [place] [address]- 8297 May, [facility] [address] [id number] [place] [address]- 8696 May, [facility] [place] [facility] [address] [id number] [place] [address]- 7746 May, [facility] [place] [facility] [address] [id number] [place] [address]- 4681 May, [facility] [place] [facility] [address] [id number] [place] [address]- 4850 May, [facility] [place] [facility] [address] [facility] [id number] [place] [address]- 3777 Apr, [facility] [place] [facility] [address] [id number] [place] [address]- 5253 Apr, [facility] [place] [facility] [address] [id number] [place] [address]- 1574 Mar, [facility] [place] [facility] [address] [id number] [place] [address]- 1341 Mar, [facility] [place] [facility] [address] [id number] [place] [address]- 4586 Mar, [facility] [place] [facility] [address] [id number] [place] [address]- 0276 Mar, [facility] [place] [facility] [address] [id number] [place] [address]- 2789 Mar, [facility] [place] [facility] [address] [id number] [place] [address]- 1449 Mar, [facility] [place] [facility] [address] [id number] [place] [address]- 7534 Mar, [facility] [place] [facility] [address] [id number] [place] [address]- 7272 Mar, [facility] [place] [facility] [address] [id number] [place] [address]- 0892 Mar, [facility] [place] [facility] [address] [id number] [place] [address]- 5108 Mar, [facility] [place] [facility] [address] [id number] [place] [address]- 5464 Feb, [facility] [place] [facility] [address] [id number] [place] [address]- 8846 Feb, [facility] [place] [facility] [address] [id number] [place] [address]- 9328 Feb, [facility] [place] [facility] [address] [id number] [place] [address]- 0973 Feb, [facility] [place] [facility] [address] [id number] [place] [address]- 9252 Feb, [facility] [place] [facility] [address] [id number] [place] [address]- 8617 Feb, [facility] [place] [facility] [address] [id number] [place] [address]- 5691 Feb, [facility] [place] [facility] [address] [id number] [place] [address]- 8246 Jan, [facility] [place] [facility] [address] [id number] [place] [address]- 7139 Jan, [facility] [place] [facility] [address] [id number] [place] [address]- 3144 Dec, [facility] [place] [facility] [address] [id number] [place] [address]- 7935 Dec, [facility] [place] [facility] [address] [id number] [place] [address]- 6819 Dec, [facility] [place] [facility] [address] [id number] [place] [address]- 6931 Dec, [facility] [place] [facility] [address] [id number] [place] [address]- 6807 Dec, [facility] [place] [facility] [address] [id number] [place] [address]- 9205 Dec, [facility] [place] [facility] [address] [id number] [place] [address]- 4029 Nov, [facility] [place] [facility] [address] [id number] [place] [address]- 9406 Nov, [facility] [place] [facility] [address] [id number] [place] [address]- 4281 Nov, [facility] [place] [facility] [address] [id number] [place] [address]- 3867 Nov, [facility] [place] [facility] [address] [id number] [place] [address]- 7633 September, [facility] [place] [facility] [id number] [address]- 9476 September, [facility] [id number] [address]- 6116 September, [facility] [id number] [address]- 7926 Jul, [facility] [id number] [address]- 1296 Jun, [facility] [id number] [address]- 9406 Jun, [facility] [id number] [place] [address]- 5586 Jun, [facility] [id number] [address]- 8166 Apr, [facility] [id number] [place] [address]- 5990 Mar, [facility] [id number] [address]- 0324 Mar, [facility] [id number] [place] [address]- 1736 Feb, [facility] [address] [address]- 3416 Feb, [facility] [id number] [address]- 6266 Feb, [facility] [address] [address]- 7331 Jul, [facility] [id number] [address]- 0270 Feb, IMMUNIZATIONS No Known Immunizations SOCIAL HISTORY Never Assessed REASON FOR VISIT Controlled Med Refill 01/26/2017 PLAN OF CARE VITAL SIGNS MEDICATIONS Medication [...]
--- OUTSIDE RECORDS SUMMARY | 2018-02-03 00:08 | XMS REPORT ---
Author Author MACY TAMAYO [facility] Address [address] [place] [address] Care Team Providers Care Plastics Repairer Name Role Phone MACY TAMAYO Unavailable PROBLEMS Type Condition ICD9-CM Code ENW14-NG Code Onset Dates Condition Status SNOMED Code Problem Menopause Z78.0 Active 878862740 Problem Lupus erythematosus L93.0 Active 572581907 Problem Other chronic pain G89.29 Active 93906155 Problem Anxiety F41.9 Active 35473601 Problem Diabetes type 2, controlled E11.9 Active 32486808 Problem Mood disorder F39 Active 55400129 Problem Osteoarthritis of right knee, unspecified osteoarthritis type M17.9 Active 309182614 Problem Allergic rhinitis due to pollen J30.1 Active 62460995 ALLERGIES No Information SOCIAL HISTORY Never Assessed [...]
--- OUTSIDE RECORDS SUMMARY | 2018-02-03 00:08 | XMS REPORT ---
Author Author ROSANA Scott Organization [facility] Address [address] [place] [address] Care Team Providers Care Records Clerk Name Role Phone ROSANA Scott Unavailable PROBLEMS Type Condition ICD9-CM Code [id number] Code Onset Dates Condition Status SNOMED Code Problem Plantar warts B07.0 Active 29560260 Problem Lumbago with sciatica, left side M54.42 Active 263571604 Problem Plantar wart of both feet B07.0 Active [id number] Problem Morbid (severe) obesity due to excess calories E66.01 Active 598828200 Problem Dermatomyositis M33.90 Active 154305316 Problem Tachycardia with heart rate 121-140 beats per minute R00.0 Active 1088163 Problem Controlled type 2 diabetes mellitus without complication, without long -term current use of insulin E11.9 Active 825868621 Problem Enlarged thyroid gland E04.9 Active 9540783 Problem Body mass index (BMI) of 45.0-49.9 in adult Z68.42 Active 761684775 Problem Menopause Z78.0 Active 918345175 Problem Allergic rhinitis due to pollen J30.1 Active 61058135 Problem Osteoarthritis of right knee, unspecified osteoarthritis type M17.9 Active 335530651 Problem Anxiety F41.9 Active 91907311 Problem Mood disorder F39 Active 95167225 Problem Other chronic pain G89.29 Active 28143358 Problem Diabetes type 2, controlled E11.9 Active 96607823 Problem Arthritis M19.90 Active 7937597 ALLERGIES No Information ENCOUNTERS Encounter Location Date Diagnosis [facility] [address] [facility] [id number] [address] Aug, Mood disorder F39 [facility] [address] [facility] [id number] [address] Aug, Other chronic pain G89.29 ; Controlled type 2 diabetes mellitus without complication, without long-term current use of insulin E11.9 ; Low back pain M54.5 and Tinea corporis B35.[address] [address]- [address] Aug, Mood disorder F39 and Anxiety F41.9 [place] [address] 18[address]- 4471 Aug, Mood disorder F39 and Anxiety F41.9 [place] [address] 90229- 2841 Jul, [facility] [address] [address] Jul, Scabies B86 and BMI 45.0-49.9, adult Z68.[address] [address]- [address] Jul, [place] [address] 0[address]37- 2079 Jul, Mood disorder F39 and Anxiety F41.[address] 8[address]- 9[address] Jul, [facility] [address] [address] 27 Jun, 2017 Bronchitis J40 ; Dark urine R82.99 and BMI 45.0-49.9, adult Z68.42 [place] [address] [address]- [address] 14 Jun, 2017 Acute pain of right shoulder M25.511 and Acute pain of right knee M25.[address] [address]- [address] May, BMI 40.0-44.9, adult Z68.41 ; Controlled type 2 diabetes mellitus without complication, without long-term current use of insulin E11.9 ; Muscle cramping R25.2 ; Hot flashes R23.2 ; Mood disorder F39 ; Anxiety F41.9 and Morbid (severe) obesity due to excess calories E66.01 [place] [id number] [place] [address] 27268- 5383 May, BMI 40.0-44.9, adult Z68.41 ; Controlled type 2 diabetes mellitus without complication, without long-term current use of insulin E11.9 ; Muscle cramping R25.2 and Hot flashes R23.[address] [address]- [address] May, Tachycardia with heart rate 121-140 beats per minute R00.0 ; Morbid (severe) obesity due to excess calories E66.01 ; Diabetes type 2, controlled E11.9 and Enlarged thyroid gland E04.9 [place] [id number] [place] [address] 19150- 9498 25 May, 2017 Encounter for well woman [...] Dysuria R30.0 and Screening breast examination Z12.31 [place] [id number] [place] [address] 31002- 5642 Apr, Mood disorder F39 ; Other chronic pain G89.29 and Anxiety F41.9 [place] [id number] [place] [address] 46217- 7652 Apr, Lumbago with sciatica, left side M54.42 and Other chronic pain G89.29 [place] [address] [place] [id number] [place] [address] 07713- 2608 Apr, Lupus erythematosus L93.0 [place] [id number] [place] [address] 70481- 1042 Mar, Plantar wart of both feet B07.0 [facility] [address] [place] [id number] [place] [address] 96805- 7231 Mar, Lupus erythematosus L93.0 and Sinus drainage J34.89 [facility] [address] [place] [id number] [place] [address] 35653- 7646 Mar, Mood disorder F39 ; Other chronic pain G89.29 and Anxiety F41.9 [facility] [address] [place] [id number] [place] [address] 31585- 4487 Mar, Mood disorder F39 ; Arthritis M19.90 and Plantar warts B07.0 [facility] [address] [place] [id number] [place] [address] 04577- 1106 Feb, Lupus erythematosus L93.0 [facility] [address] [place] [id number] [place] [address] 85712- 9341 Feb, Other chronic pain G89.29 [facility] [address] [place] [id number] [place] [address] 65215- 8467 Feb, Mood disorder F39 and Anxiety F41.9 [facility] [address] [place] [id number] [place] [address] 96569- 1739 Jan, [facility] [address] [place] [id number] [place] [address] 80820- 8844 Jan, Mood disorder F39 [facility] [address] [place] [id number] [place] [address] 81760- 1372 Dec, Nail, ingrown L60.0 [facility] [address] [place] [id number] [place] [address] 88004- 6704 Dec, Nail, ingrown L60.0 [facility] [address] [place] [id number] [place] [address] 95992- 4004 Nov, Mood disorder F39 and Anxiety F41.9 [facility] [address] [place] [id number] [place] [address] 58444- 3265 Nov, Sinus drainage J34.89 ; Hot flashes R23.2 ; Anxiety F41.9 and Diabetes type 2, controlled E11.9 [facility] [address] [place] [id number] [place] [address] 41435- 5763 Nov, Nail, ingrown L60.0 [facility] [address] [place] [id number] [place] [address] 13321- 1473 Oct, Anxiety F41.9 and Mood disorder F39 [facility] [address] [place] [id number] [place] [address] 85671- 9015 Oct, Nail, ingrown L60.0 and Anxiety F41.9 [facility] [address] [place] [id number] [place] [address] 08873- 2054 Oct, Lupus erythematosus L93.0 [facility] [address] [place] [id number] [place] [address] 49631- 9711 September, [facility] [address] [place] [id number] [place] [address] 16795- 7024 September, [facility] [address] [place] [id number] [place] [address] 87578- 4871 September, Lupus erythematosus L93.0 [facility] [address] [place] [id number] [place] [address] 12419- 4502 Aug, [facility] [address] [place] [id number] [place] [address] 55430- 3126 Aug, Mood disorder F39 and Anxiety F41.9 [facility] [address] [place] [id number] [place] [address] 53953- 0891 Aug, Lupus erythematosus L93.0 ; Diabetes type 2, controlled E11.9 and Localized edema R60.0 [facility] [address] [place] [id number] [place] [address] 04503- 6046 Aug, [facility] [address] [place] [id number] [place] [address] 78449- 5867 Jul, Anxiety F41.9 and Mood disorder F39 [facility] [id number] [place] [address] 25987- 3312 10 Jul, 2016 Diabetes type 2, controlled E11.9 [place] [address] [place] [id number] [place] [address] 50881- 0144 Jun, Anxiety F41.9 [place] [address] [place] [id number] [place] [address] 96504- 8861 May, [place] [address] [place] [id number] [place] [address] 03295- 2409 May, [place] [address] [place] [id number] [place] [address] 87769- 1903 May, Nausea R11.0 ; Other chronic pain G89.29 and Pain in right knee M25.561 [place] [address] [place] [id number] [place] [address] 68810- 4343 May, [place] [address] [place] [id number] [place] [address] 11260- 3347 Apr, Tear of medial meniscus of right knee, current, unspecified tear type, subsequent encounter S83.241D and Tear of lateral meniscus of right knee, current, unspecified tear type, subsequent encounter S83.281D [place] [address] [place] [address] 96751- 9255 Apr, Anxiety F41.9 and Mood disorder F39 [place] [address] [place] [id number] [place] [address] 13171- 1723 Apr, Anxiety F41.9 [place] [address] [place] [id number] [place] [address] 60690- 7376 Apr, [place] [address] [place] [id number] [place] [address] 74080- 8004 Mar, [place] [id number] [place] [address] 90927- 6197 Mar, Lupus erythematosus L93.0 and Diabetes type 2, controlled E11.9 [place] [id number] [place] [address] 74527- 1094 Mar, Mood disorder F39 [facility] [address] [place] [id number] [place] [address] 48974- 6873 Mar, Tear of lateral meniscus of right knee, current, unspecified tear type, initial encounter S83.281A and Osteoarthritis of right knee, unspecified osteoarthritis type M17.9 [facility] [address] [place] [id number] [place] [address] 55912- 4060 Mar, [facility] [address] [place] [id number] [place] [address] 82479- 1828 Feb, Mood disorder F39 [facility] [address] [place] [id number] [place] [address] 30192- 2061 Feb, Rash R21 [facility] [address] [place] [id number] [place] [address] 65585- 9076 Feb, [facility] [address] [place] [id number] [place] [address] 60044- 8728 Jan, Other chronic pain G89.29 and Muscle spasm M62.838 [facility] [address] [place] [id number] [place] [address] 46220 2546 Jan, Mood disorder F39 [facility] [address] [place] [id number] [place] [address] 01514- 6338 Jan, Pain in right knee M25.561 ; Other chronic pain G89.29 and Muscle spasm M62.838 [facility] [id number] [place] [address] 56082 2546 Dec, [facility] [address] [place] [id number] [place] [address] 71060- 0246 Dec, [facility] [address] [place] [id number] [place] [address] 55216- 3141 Nov, [facility] [address] [place] [id number] [place] [address] 07302- 1115 Nov, Mood disorder F39 [place] [id number] [place] [address] 16253- 9840 Nov, Diabetes type 2, controlled E11.9 ; Bronchitis J40 ; Edema, unspecified type R60.9 ; Weight gain R63.5 and Right knee pain, unspecified chronicity M25.561 [place] [address] [place] [id number] [place] [address] 69608- 9097 Oct, Mood disorder F39 [place] [address] [place] [id number] [place] [address] 55801- 1938 Oct, Lupus erythematosus L93.0 and Bilateral edema of lower extremity R60.0 [place] [address] 49081- 7526 Oct, Mood disorder F39 and Anxiety F41.9 [place] [address] [place] [id number] [place] [address] 44090- 9793 September, Mood disorder F39 ; Anxiety F41.9 and Anger reaction R45.4 [place] [address] [place] [id number] [place] [address] 51585- 6164 September, Diabetes type 2, controlled E11.9 ; Edema, unspecified type R60.9 and Fatigue, unspecified type R53.83 [place] [address] [place] [id number] [place] [address] 00937- 4220 Aug, Mood disorder F39 and Generalized anxiety disorder F41.1 [place] [address] [place] [id number] [place] [address] 30423- 4000 Aug, Diabetes type 2, controlled E11.9 ; Sinusitis J32.9 and Mood disorder F39 [place] [address] [place] [id number] [place] [address] 15891- 6167 Aug, Lupus erythematosus L93.0 [place] [address] [place] [id number] [place] [address] 99654- 6843 14 Aug, 2015 [place] [address] [place] [id number] [place] [address] 26186 2546 Aug, [facility] [address] [address] 2546 Jul, Diabetes type 2, controlled E11.9 [facility] [address] [id number] [address] 2546 Jul, Mood disorder F39 and Depression F32.9 [facility] [address] [place] [id number] [place] [address] 57246 2546 Jul, Lupus erythematosus L93.0 and Diabetes type 2, controlled E11.9 [facility] [address] [place] [address] 34461 2546 Jul, Mood disorder F39 and Anxiety F41.9 [facility] [address] [place] [address] 13238 2546 Jul, [facility] [address] [place] [id number] [place] [address] 37824 2546 Jul, [facility] [address] [address] 2548 Jun, Mood disorder F39 and Anxiety F41.9 [facility] [address] [address] 2546 Jun, Mood disorder F39 [facility] [address] [address] 2546 18 Jun, 2015 [facility] [address] [address] 2546 15 Jun, 2015 [facility] [address] [place] [id number] [address] 2546 08 Jun, 2015 Mood disorder F39 [facility] [address] [place] [id number] [address] 2546 04 Jun, 2015 [facility] [address] [address]- 7956 May, [facility] [address] [address]- 8542 May, [facility] [address] [place] [id number] [place] [address] 11937- 7548 May, [facility] [address] [place] [id number] [place] [address] 27082- 9583 May, [facility] [address] 27325- 0122 May, Anxiety F41.9 ; Dermatomyositis M33.90 and Diabetes type 2, controlled E11.9 [facility] [address] [place] [id number] [place] [address] 29572 -7753 May, Sinusitis J32.9 and Cough R05 [facility] [address] [place] [id number] [place] [address] 11160- 3427 May, Mood disorder F39 [facility] [address] [place] [id number] [place] [address] 26796- 1417 May, Adjustment disorder with mixed anxiety and depressed mood F43.23 [facility] [address] [place] [id number] [place] [address] 30832- 7094 Apr, [facility] [address] [place] [id number] [place] [address] 14365- 0894 Apr, [facility] [address] [place] [id number] [place] [address] 77928- 3635 Apr, Generalized anxiety disorder F41.1 and Mood disorder F39 [facility] [address] [place] [id number] [place] [address] 66914- 3158 Mar, [facility] [address] [place] [id number] [place] [address] 17131- 4873 Mar, [facility] [address] [place] [id number] [place] [address] 42870- 0225 Mar, [facility] [address] [place] [id number] [place] [address] 01887- 1455 Mar, Mood disorder F39 [place] [address] [place] [id number] [place] [address] 89913- 2099 Feb, [place] [address] [place] [id number] [place] [address] 577693- 6800 Feb, Diabetes E11.9 and Bronchitis J40 [place] [address] 06729- 8343 Feb, [place] [address] 99719- 1460 Feb, [place] [address] 32077- 8364 Feb, Major depression, recurrent, full remission F33.42 and KELLY ( generalized anxiety disorder) F41.[address] 81782- 4629 Feb, [place] [address] 58925- 8498 Feb, Single major depressive episode, in partial or unspecified remission F32.5 [place] [address] 50749- 1850 Jan, Fatigue 780.79 [place] [address] [place] [id number] [place] [address] 10893- 2698 Jan, [place] [address] [place] [id number] [place] [address] 08428- 3724 Jan, Diabetes with other specified manifestations, type II or unspecified type, not stated as uncontrolled 250.80 [place] [address] 90065- 8540 Jan, [place] [address] 42424- 4506 Dec, Hot flashes 627.2 ; Memory loss 780.93 and Joint pain 719.40 [place] [address] 97374- 8298 Dec, Major depression, recurrent 296.30 ; Generalized anxiety disorder 300.02 ; Adjustment disorder with depressed mood 309.0 and No condition on [place] II V71.09 [place] [address] [place] [address] 31637- 2879 Dec, [place] [id number] [place] [address] 38452- 2882 Nov, Cognitive and neurobehavioral dysfunction 294.9 ; Major depressive disorder, recurrent episode, moderate degree 296.32 and Anxiety state , unspecified 300.00 [place] [id number] [place] [address] 78692- 5299 Nov, [place] [id number] [place] [address] 46756- 7201 Nov, Bronchitis 490 and Diabetes with other specified manifestations, type II or unspecified type, not stated as uncontrolled 250.80 [place] [id number] [place] [address] 06592- 1409 Nov, Major depressive disorder, recurrent episode, moderate 296.32 and Anxiety disorder, unspecified 300.00 [place] [id number] [place] [address] 98626- 1497 Nov, Anxiety, generalized 300.02 ; Intermittent explosive disorder 312.34 ; No condition on [place] II V71.09 and No condition on axis III V71.09 [place] [id number] [place] [address] 34152- 0473 Oct, Diabetes with other specified manifestations, type II or unspecified type, not stated as uncontrolled 250.80 ; Urinary tract infection, site not specified 599.0 and Bronchitis [address] [place] [id number] [place] [address] 88119- 9382 Oct, Intermittent explosive disorder 312.34 ; Bipolar 1 disorder , depressed, moderate 296.52 ; Major depression, chronic 296.20 ; No condition on [place] II V71.09 and No condition on axis III V71.09 [address] [place] [address] 75802- 4646 15 Oct, 2014 Major depressive disorder, recurrent episode, moderate 296.32 ; Anxiety state 300.00 ; Cognitive decline 294.9 and No condition on [place] II V71.09 [facility] [address] [place] [id number] [place] [address] 99718- 8972 Oct, [facility] [address] [place] [id number] [place] [address] 49847- 8600 Oct, Major depressive disorder, recurrent episode, moderate 296.32 ; Anxiety disorder, unspecified 300.00 and Persistent disorder of initiating or maintaining sleep 307.42 [place] [address] 630406- 3790 September, Diabetes with other specified manifestations, type II or unspecified type, not stated as uncontrolled 250.80 ; Memory loss 780.93 and Cognitive complaints 799.59 [place] [address] [place] [id number] [place] [address] 31647- 9830 September, No condition on [place] II V71.09 ; Major depression, recurrent 296.30 and Persistent mood [affective] disorder, unspecified 296.90 [place] [address] [place] [id number] [place] [address] 82372- 3018 Aug, [place] [address] [place] [id number] [place] [address] 27343- 6284 Aug, [facility] [address] [place] [id number] [place] [address] 39632- 9122 Aug, [facility] [address] [place] [id number] [place] [address] 034859- 4773 Jul, [place] [address] [place] [id number] [place] [address] 32477- 3774 Jul, [facility] [address] [place] [id number] [place] [address] 60214914- 7968 Jul, [facility] [address] [place] [id number] [place] [address] 29202- 5480 Jul, [facility] [place] [facility] [address] [facility] [id number] [place] [address]- 5654 Jul, [facility] [place] [facility] [address] [facility] [id number] [place] [address]- 7216 Jun, 2014 [facility] [place] [facility] [address] [facility] [id number] [place] [address]- 8163 Jun, 2014 [facility] [place] [facility] [address] [facility] [id number] [place] [address]- 3654 Jun, 2014 [facility] [place] [facility] [address] [facility] [id number] [place] [address]- 5978 Jun, 2014 [facility] [place] [facility] [address] [facility] [id number] [place] [address]- 0039 Jun, 2014 [facility] [place] [facility] [address] [facility] [id number] [place] [address]- 7253 Jun, 2014 [facility] [place] [facility] [address] [facility] [id number] [place] [address]- 2269 Jun, 2014 [facility] [place] [facility] [address] [facility] [id number] [place] [address]- 0154 Jun, 2014 [facility] [place] [facility] [address] [facility] [id number] [place] [address]- 1417 Jun, 2014 [facility] [place] [facility] [address] [place] [id number] [address]- 0050 Jun, 2014 [facility] [place] [facility] [address] [facility] [id number] [place] [address] Jun, 2014 [facility] [place] [facility] [address] [facility] [id number] [place] [address] Jun, 2014 [facility] [place] [facility] [address] [facility] [id number] [place] [address] Jun, 2014 [facility] [place] [facility] [id number] [address] May, [facility] [place] [facility] [address] [id number] [place] [address] May, [facility] [place] [facility] [address] [id number] [place] [address] Apr, [facility] [place] [facility] [address] [id number] [place] [address] Apr, [facility] [place] [facility] [address] [id number] [place] [address] Apr, [facility] [place] [facility] [address] [id number] [id number] [address] Apr, [facility] [place] [facility] [address] [id number] [place] [address] Apr, [facility] [place] [facility] [address] [id number] [place] [address] Apr, [facility] [place] [facility] [address] [id number] [place] [address] Apr, [facility] [place] [facility] [address] [id number] [place] [address] Apr, [facility] [place] [facility] [address] [id number] [place] [address] Apr, [facility] [place] [facility] [address] [id number] [place] [address] Apr, [facility] [place] [facility] [address] [id number] [place] [address] Apr, [facility] [place] [facility] [address] [id number] [place] [address] Apr, [facility] [place] [facility] [address] [id number] [place] [address] Apr, [facility] [place] [facility] [address] [id number] [place] [address] Apr, [facility] [place] [facility] [address] [id number] [place] [address] Apr, [facility] [place] [facility] [address] [id number] [place] [address] Apr, [facility] [place] [facility] [address] [id number] [place] [address] Apr, [facility] [place] [facility] [address] [id number] [place] [address] Apr, [facility] [place] [facility] [address] [id number] [place] [address] Apr, [facility] [place] [facility] [address] [id number] [place] [address] Apr, [facility] [place] [facility] [address] [address] [id number] [place] [address] Mar, [facility] [place] [facility] [address] [id number] [place] [address] Mar, [facility] [place] [facility] [address] [id number] [place] [address] 9[address] Mar, [facility] [place] [facility] [address] [id number] [place] [address]78 Mar, [facility] [place] [facility] [address] [id number] [place] [address] 3956 Mar, [facility] [place] [facility] [address] [id number], [place] [address] Mar, [facility] [place] [facility] [address] [id number], [place] [address] Mar, [facility] [place] [facility] [address] [id number] [place] [address] 4075 Mar, [facility] [place] [facility] [address] [id number], [place] [address] Mar, [facility] [place] [facility] [address] [id number], [place] [address] 6[address] Mar, [facility] [place] [facility] [address] [id number] [place] [address]777 Mar, [facility] [place] [facility] [address] [id number] [place] [address]- 5268 Mar, [facility] [place] [facility] [address] [id number] [place] [address]- 2527 Mar, [facility] [place] [facility] [address] [id number] [place] [address] 8790 Feb, [facility] [place] [facility] [address] [id number] [place] [address]- 6586 Feb, [facility] [place] [facility] [address] [id number] [place] [address]- 4693 Feb, [facility] [place] [facility] [address] [id number] [place] [address]- 7946 Feb, [facility] [place] [facility] [address] [id number] [place] [address]- 7903 Feb, [facility] [place] [facility] [address] [id number] [place] [address]- 4772 Feb, [facility] [place] [facility] [address] [id number] [place] [address]- 1570 Feb, [facility] [place] [facility] [address] [id number] [place] [address]- 9189 Feb, [facility] [place] [facility] [address] [id number] [place] [address]- 3888 Feb, [facility] [place] [facility] [address] [id number], [place] [address]- 6765 Feb, [facility] [place] [facility] [address] [id number] [place] [address]- 9623 Feb, [facility] [place] [facility] [address] [id number] [place] [address]- 0232 Feb, [facility] [place] [facility] [address] [id number] [place] [address]- 6730 Feb, [facility] [place] [facility] [address] [id number] [place] [address]- 1223 Feb, [facility] [place] [facility] [address] [id number] [place] [address]- 4090 Feb, [facility] [place] [facility] [address] [id number] [place] [address]- 0061 Jan, [facility] [place] [facility] [address] [id number] [place] [address]- 8806 Jan, [facility] [place] [facility] [address] [id number] [place] [address]- 0406 Jan, [facility] [place] [facility] [address] [id number] [place] [address]- 0084 Jan, [facility] [place] [facility] [address] [id number] [place] [address]- 8192 Jan, [facility] [place] [facility] [address] [id number] [place] [address]- 5219 Dec, [facility] [place] [facility] [address] [id number] [place] [address]- 3332 Dec, [facility] [place] [facility] [address] [id number] [place] [address]- 9053 Dec, [facility] [place] [facility] [address] [id number] [place] [address]- 9052 Dec, [facility] [place] [facility] [address] [id number] [place] [address]- 4339 Nov, [facility] [place] [facility] [address] [id number] [place] [address]- 1517 Nov, [facility] [place] [facility] [address] [id number] [place] [address]- 1442 Nov, [facility] [place] [facility] [address] [id number] [place] [address]- 8766 Nov, [facility] [place] [facility] [address] [id number] [place] [address]- 2546 Nov, [facility] [place] [facility] [address] [id number] [place] [address]- 2748 Nov, [facility] [place] [facility] [address] [id number] [place] [address]- 2753 Nov, [facility] [place] [facility] [address] [id number] [place] [address]- 4720 Nov, [facility] [place] [facility] [address] [id number] [place] [address]- 1339 Nov, [facility] [place] [facility] [address] [id number] [place] [address]- 0367 Nov, [facility] [place] [facility] [address] [id number] [place] [address]- 2709 Oct, [facility] [place] [facility] [address] [id number] [place] [address]- 3946 Oct, [facility] [place] [facility] [address] [id number] [place] [address]- 4417 September, [facility] [place] [facility] [address] [id number] [place] [address]- 5497 September, [facility] [place] [facility] [address] [id number] [place] [address]- 1557 September, [facility] [place] [facility] [address] [id number] [place] [address]- 5500 September, [facility] [place] [facility] [address] [id number] [place] [address]- 4526 Aug, [facility] [place] [facility] [address] [id number] [place] [address]- 4719 Aug, [facility] [place] [facility] [address] [id number] [place] [address]- 4269 Aug, [facility] [place] [facility] [address] [id number] [place] [address]- 9225 Jul, [facility] [place] [facility] [address] [id number] [place] [address]- 5870 24 Jul, 2013 [facility] [address] [id number] [place] [address]- 9119 14 Jul, 2013 [facility] [place] [facility] [address] [id number] [place] [address]- 3739 14 Jul, 2013 [facility] [address] [id number] [place] [address]- 4172 20 May, 2013 [facility] [place] [facility] [address] [id number] [place] [address]- 4229 17 May, 2013 [facility] [address] [id number] [place] [address]- 6706 17 May, 2013 [facility] [address] [id number] [place] [address]- 1941 15 Mar, 2013 [facility] [place] [facility] [address] [id number] [place] [address]- 3388 15 Mar, 2013 [facility] [address] [id number] [place] [address]- 4384 Mar, [facility] [address] [id number] [place] [address]- 4914 Mar, [facility] [address] [id number] [place] [address]- 7232 16 Feb, 2013 [facility] [place] [facility] [address] [id number] [place] [address]- 1806 16 Feb, 2013 [facility] [place] [facility] [address] [id number] [place] [address]- 0477 04 Feb, 2013 [facility] [place] [facility] [address] [id number] [place] [address]- 6866 16 Jan, 2013 [facility] [place] [facility] [address] [id number] [place] [address]- 5408 12 Jan, 2013 [facility] [place] [facility] [address] [id number] [place] [address]- 9076 Jan, [facility] [address] [id number] [place] [address]- 0295 Dec, [facility] [place] [facility] [address] [id number] [place] [address]- 4913 Dec, [facility] [place] [facility] [address] [id number] [place] [address]89 Dec, [facility] [place] [facility] [address] [id number] [place] [address]- 3773 Dec, [facility] [place] [facility] [address] [id number] [place] [address]- 3154 Nov, [facility] [place] [facility] [address] [id number] [place] [address]- 1696 Oct, [facility] [place] [facility] [address] [id number] [place] [address]- 3879 Oct, [facility] [place] [facility] [address] [id number] [place] [address]- 1774 September, [facility] [place] [facility] [address] [id number] [place] [address]- 8796 September, [facility] [place] [facility] [address] [id number] [place] [address]- 4796 September, [facility] [place] [facility] [address] [id number] [place] [address]- 5955 Aug, [facility] [place] [facility] [address] [id number], [place] [address]- 8905 Aug, [facility] [place] [facility] [address] [id number] [place] [address]- 2073 Aug, [facility] [place] [facility] [address] [id number] [place] [address]60 Aug, [facility] [place] [facility] [address] [id number] [place] [address]- 1403 Jul, [facility] [place] [facility] [address] [id number], [place] [address]- 5194 25 Jul, 2012 [facility] [address] [id number] [place] [address]- 5844 21 Jul, 2012 [facility] [place] [facility] [address] [id number] [place] [address]- 9605 15 Jul, 2012 [facility] [address] [id number] [place] [address]- 2366 14 Jul, 2012 [facility] [place] [facility] [address] [id number] [place] [address]- 3146 13 Jul, 2012 [facility] [place] [facility] [address] [id number] [place] [address]- 2614 13 Jul, 2012 [facility] [place] [facility] [address] [id number] [place] [address]- 5520 06 Jun, 2012 [facility] [address] [id number] [place] [address]- 4703 06 Jun, 2012 [facility] [place] [facility] [address] [id number] [place] [address]- 6143 05 Jun, 2012 [facility] [place] [facility] [address] [id number] [place] [address]- 3400 Jun, [facility] [place] [facility] [address] [facility] [id number] [place] [address]- 3819 May, [facility] [place] [facility] [address] [id number] [place] [address]- 4132 May, [facility] [place] [facility] [address] [id number] [place] [address]- 2542 30 May, 2012 [facility] [place] [facility] [address] [id number] [place] [address]- 0517 29 May, 2012 [facility] [place] [facility] [address] [id number] [place] [address]- 8757 May, [facility] [place] [facility] [address] [id number] [place] [address]- 3806 Apr, [facility] [place] [facility] [address] [id number] [place] [address]- 7945 Apr, [facility] [place] [facility] [address] [id number] [place] [address]- 9123 Mar, [facility] [place] [facility] [address] [id number] [place] [address]- 0024 Mar, [facility] [place] [facility] [address] [id number] [place] [address], [place] [address]- 8816 Mar, [facility] [place] [facility] [address] [id number] [place] [address]- 4820 Mar, [facility] [place] [facility] [address] [id number] [place] [address]- 2458 Mar, [facility] [place] [facility] [address] [id number] [place] [address]- 3653 Mar, [facility] [place] [facility] [address] [id number] [place] [address]- 0640 Mar, [facility] [place] [facility] [address] [id number] [place] [address]- 2970 Mar, [facility] [place] [facility] [address] [id number] [place] [address]- 3874 Mar, [facility] [place] [facility] [address] [id number] [place] [address]- 0536 Mar, [facility] [place] [facility] [address] [id number] [place] [address]- 2886 Feb, [facility] [place] [facility] [address] [id number] [place] [address]- 4990 Feb, [facility] [place] [facility] [address] [id number] [place] [address]- 6926 Feb, [facility] [place] [facility] [address] [id number] [place] [address]- 8998 Feb, [facility] [place] [facility] [address] [id number] [place] [address]- 0677 Feb, [facility] [place] [facility] [address] [id number] [place] [address]- 2125 Feb, [facility] [place] [facility] [address] [id number] [place] [address]- 9286 Feb, [facility] [place] [facility] [address] [id number] [place] [address]- 2748 Jan, [facility] [place] [facility] [address] [id number] [place] [address]- 1388 Jan, [facility] [place] [facility] [address] [id number] [place] [address]- 2168 Dec, [facility] [place] [facility] [address] [id number] [place] [address]- 2569 Dec, [facility] [place] [facility] [address] [id number] [place] [address]- 5681 Dec, [facility] [place] [facility] [address] [id number] [place] [address]- 2842 Dec, [facility] [place] [facility] [address] [id number] [place] [address]- 0921 Dec, [facility] [place] [facility] [address] [id number] [place] [address]- 7732 Dec, [facility] [place] [facility] [address] [id number] [place] [address]- 7275 Nov, [facility] [place] [facility] [address] [id number] [place] [address]- 3932 Nov, [facility] [place] [facility] [address] [id number] [place] [address]- 8570 Nov, [facility] [place] [facility] [address] [id number] [place] [address]- 2834 Nov, [facility] [place] [facility] [address] [id number] [place] [address]- 4478 September, [facility] [place] [facility] [id number] [address]- 0216 September, [facility] [id number] [address]- 4268 September, [facility] [id number] [address] Jul, [facility] [id number] [address]- 9840 Jun, [facility] [id number] [address]- 6486 Jun, [facility] [id number] [place] [address]- 1373 Jun, [facility] [id number], [place] [address]- 9004 Apr, [facility] [id number], [place] [address]- 2203 Mar, [facility] [id number] [address]- 8112 Mar, [facility] [id number] 6667 Feb, [facility] [id number] [address]20 Feb, [facility] [id number] [address]- 2693 Feb, [facility] [id number] [address]- 1622 Jul, [facility] [id number], [place] [address]- 5124 Feb, IMMUNIZATIONS No Known Immunizations SOCIAL HISTORY Never Assessed REASON FOR VISIT yazmin PLAN OF CARE Activity Details Follow Up 6 Weeks Reason:bipolar, depression, anxiety VITAL SIGNS MEDICATIONS Unknown Medications RESULTS No Results PROCEDURES Procedure Date Ordered Result Body Site Psychotherapy, patient &/family, 30 minutes, established patient November 04, 2016 INSTRUCTIONS MEDICATIONS ADMINISTERED No Known Medications MEDICAL (GENERAL) HISTORY Type Description Date Medical History type II diabetes-dx'd 12/2010 Medical History dysfunctional uterine bleeding--endometrial bx 12/2010 Medical History asthma Medical History hypertension Medical History obesity Medical History anxiety Medical History autoimmune disease Surgical History x1 Hospitalization History child Hospitalization History Asthma
--- OUTSIDE RECORDS SUMMARY | 2018-02-03 00:08 | XMS REPORT ---
Author MACY Wadsworth Organization [employer] Address Unknown Phone Unavailable Care Team Providers Care Band Maker Name Role Phone MACY TAMAYO CP Unavailable [...]
--- OUTSIDE RECORDS SUMMARY | 2018-02-03 00:09 | XMS REPORT ---
Author Author ROSANA CRUMP [facility] [employer] Address Unknown Phone Unavailable Care Team Providers Care Raw Juice Weigher Name Role Phone ROSANA CRUMP CP Unavailable [...] patient &/family, 45 minutes, established patient [id number] Apr 08, 2015 Results No Known Results Summary Purpose [employer] Submission
--- OUTSIDE RECORDS SUMMARY | 2018-02-03 00:09 | XMS REPORT ---
Author Author MACY TAMAYO Organization [facility] Address [address] [place] [address] Care Team Providers Care Band Teacher Name Role Phone MACY TAMAYO Unavailable PROBLEMS Type Condition ICD9-CM Code ZPL30-NW Code Onset Dates Condition Status SNOMED Code Problem Plantar warts B07.0 Active 99979356 Problem Lumbago with sciatica, left side M54.42 Active 174531642 Problem Plantar wart of both feet B07.0 Active [id number] Problem Morbid (severe) obesity due to excess calories E66.01 Active 255371957 Problem Dermatomyositis M33.90 Active 414723772 Problem Tachycardia with heart rate 121-140 beats per minute R00.0 Active 7785317 Problem Controlled type 2 diabetes mellitus without complication, without long -term current use of insulin E11.9 Active 426727302 Problem Enlarged thyroid gland E04.9 Active 9178216 Problem Body mass index (BMI) of 45.0-49.9 in adult Z68.42 Active 813008236 Problem Menopause Z78.0 Active 199833263 Problem Allergic rhinitis due to pollen J30.1 Active 85513404 Problem Osteoarthritis of right knee, unspecified osteoarthritis type M17.9 Active 198986958 Problem Anxiety F41.9 Active 48222056 Problem Mood disorder F39 Active 71087373 Problem Other chronic pain G89.29 Active 70401066 Problem Diabetes type 2, controlled E11.9 Active 66524838 Problem Arthritis M19.90 Active 3410657 ALLERGIES Substance Reaction Event Type Date Status Fluarix Quadrivalent vomiting Drug Allergy Feb, Active Zoloft makes very angry Drug Allergy Feb, Active Fluarix vomiting Drug Allergy Feb, Active Aspirin rash Drug Allergy Feb, Active Latex, Natural Rubber rash Non Drug Allergy Feb, Active ENCOUNTERS Encounter Location Date Diagnosis [facility] [address] [facility] [id number] [address] Oct, [place] [id number] [place] [address] 22424- 5503 September, Other chronic pain G89.29 [place] [place] [id number] [place] [address] 91157- 0669 Aug, Mood disorder F39 [place] [address] 30427- 0958 Aug, Other chronic pain G89.29 ; Controlled type 2 diabetes mellitus without complication, without long-term current use of insulin E11.9 ; Low back pain M54.5 and Tinea corporis B35.4 [place] [address] 05186- 3059 Aug, Mood disorder F39 and Anxiety F41.9 [place] [place] [address] 01574- 4355 Aug, Mood disorder F39 and Anxiety F41.9 [place] [address] 93172- 9530 Jul, [facility] [address] [address] Jul, Scabies B86 and BMI 45.0-49.9, adult Z68.42 [place] [id number] [place] [address] 26057- 1601 Jul, [place] [address] 63219- 8141 Jul, Mood disorder F39 and Anxiety F41.9 [place] [address] 54527- 8593 Jul, [facility] [address] [address] Jun, Bronchitis J40 ; Dark urine R82.99 and BMI 45.0-49.9, adult Z68.42 [place] [address] [place] [place] [address] 14 Jun, 2017 Acute pain of right shoulder M25.511 and Acute pain of right knee M25.561 [place] [id number] [place] [address] 29720- 5576 May, BMI 40.0-44.9, adult Z68.41 ; Controlled type 2 diabetes mellitus without complication, without long-term current use of insulin E11.9 ; Muscle cramping R25.2 ; Hot flashes R23.2 ; Mood disorder F39 ; Anxiety F41.9 and Morbid (severe) obesity due to excess calories E66.[address] [address]- 4777 May, BMI 40.0-44.9, adult Z68.41 ; Controlled type 2 diabetes mellitus without complication, without long-term current use of insulin E11.9 ; Muscle cramping R25.2 and Hot flashes R23.2 [place] [id number] [place] [address] 28952- 4428 May, Tachycardia with heart rate 121-140 beats per minute R00.0 ; Morbid (severe) obesity due to excess calories E66.01 ; Diabetes type 2, controlled E11.9 and Enlarged thyroid gland E04.9 [place] [id number] [place] [address] 62021- 9692 25 May, 2017 Encounter for well woman [...] Dysuria R30.0 and Screening breast examination Z12.31 [place] [id number] [place] [address] 30333- 1533 Apr, Mood disorder F39 ; Other chronic pain G89.29 and Anxiety F41.9 [facility] [id number] [place] [address] 35121- 1329 Apr, Lumbago with sciatica, left side M54.42 and Other chronic pain G89.29 [facility] [id number] [place] [address] 16054- 9066 Apr, Lupus erythematosus L93.0 [facility] [address] 49910- 8816 Mar, Plantar wart of both feet B07.0 [facility] [address] 66025- 4566 Mar, Lupus erythematosus L93.0 and Sinus drainage J34.89 [facility] [id number] [place] [address] 60064- 7528 Mar, Mood disorder F39 ; Other chronic pain G89.29 and Anxiety F41.9 [facility] [address] [address]- 1943 Mar, Mood disorder F39 ; Arthritis M19.90 and Plantar warts B07.0 [facility] [id number] [place] [address] 78406- 3191 Feb, Lupus erythematosus L93.0 [facility] [id number] [place] [address] 75916- 8996 Feb, Other chronic pain G89.29 [facility] [id number] [place] [address] 86534- 0195 Feb, Mood disorder F39 and Anxiety F41.9 [facility] [id number] [place] [address] 55029- 0355 Jan, [facility] [id number] [place] [address] 24786- 9321 Jan, Mood disorder F39 [facility] [id number] [place] [address] 78574- 4038 Dec, Nail, ingrown L60.0 [facility] [id number] [place] [address] 88909- 8702 Dec, Nail, ingrown L60.0 [facility] [id number] [place] [address] 62535- 2132 Nov, Mood disorder F39 and Anxiety F41.9 [facility] [id number] [place] [address] 34178- 3744 Nov, Sinus drainage J34.89 ; Hot flashes R23.2 ; Anxiety F41.9 and Diabetes type 2, controlled E11.9 [facility] [id number] [place] [address] 55716- 7352 Nov, Nail, ingrown L60.0 [facility] [id number] [place] [address] 83738- 8396 Oct, Anxiety F41.9 and Mood disorder F39 [facility] [id number] [place] [address] 50632- 8389 Oct, Nail, ingrown L60.0 and Anxiety F41.9 [facility] [id number] [place] [address] 61685- 5974 Oct, Lupus erythematosus L93.0 [facility] [id number] [place] [address] 74879- 9284 September, [facility] [id number] [place] [address] 31440- 8162 September, [facility] [id number] [place] [address] 04495- 1048 September, Lupus erythematosus L93.0 [facility] [id number] [place] [address] 66688- 9508 Aug, [facility] [id number] [place] [address] 49000- 6420 Aug, Mood disorder F39 and Anxiety F41.9 [facility] [address] [place] [address] 44910- 8436 Aug, Lupus erythematosus L93.0 ; Diabetes type 2, controlled E11.9 and Localized edema R60.0 [facility] [id number] [place] [address] 97387- 5029 Aug, [facility] [id number] [place] [address] 02956- 8193 Jul, Anxiety F41.9 and Mood disorder F39 [place] [address] 22020- 0773 Jul, Diabetes type 2, controlled E11.9 [facility] [id number] [place] [address] 95140- 1120 Jun, Anxiety F41.9 [place] [id number] [place] [address] 03777- 9802 May, [facility] [id number] [place] [address] 95168- 1605 May, [place] [id number] [place] [address] 58141- 4537 May, Nausea R11.0 ; Other chronic pain G89.29 and Pain in right knee M25.561 [place] [id number] [place] [address] 74248- 4534 May, [facility] [id number] [place] [address] 32928- 0842 Apr, Tear of medial meniscus of right knee, current, unspecified tear type, subsequent encounter S83.241D and Tear of lateral meniscus of right knee, current, unspecified tear type, subsequent encounter S83.281D [place] [id number] [place] [address] 80943- 1692 Apr, Anxiety F41.9 and Mood disorder F39 [facility] [id number] [place] [address] 60544- 1649 Apr, Anxiety F41.9 [facility] [id number] [place] [address] 21702- 0762 05 Apr, 2016 [facility] [id number] [place] [address] 85756- 7266 Mar, [facility] [id number] [place] [address] 87110- 7238 Mar, Lupus erythematosus L93.0 and Diabetes type 2, controlled E11.9 [facility] [id number] [place] [address] 69741- 3479 Mar, Mood disorder F39 [facility] [id number] [place] [address] 50388- 7419 Mar, Tear of lateral meniscus of right knee, current, unspecified tear type, initial encounter S83.281A and Osteoarthritis of right knee, unspecified osteoarthritis type M17.9 [facility] [id number] [place] [address] 12099- 1845 Mar, [facility] [id number] [place] [address] 34162- 0274 Feb, Mood disorder F39 [facility] [id number] [place] [address] 76679- 1067 Feb, Rash R21 [facility] [id number] [place] [address] 07530- 7082 Feb, [facility] [id number] [place] [address] 29597- 0918 Jan, Other chronic pain G89.29 and Muscle spasm M62.838 [facility] [id number] [place] [address] 46378- 1545 Jan, Mood disorder F39 [facility] [address] [place] [address] 11489- 8365 Jan, Pain in right knee M25.561 ; Other chronic pain G89.29 and Muscle spasm M62.838 [place] [address] [address]- 4586 Dec, [place] [id number] [place] [address] 65425- 7594 Dec, [facility] [id number] [place] [address] 39775- 0882 Nov, [place] [id number] [place] [address] 65842- 7423 Nov, Mood disorder F39 [place] [id number] [place] [address] 11374- 7701 Nov, Diabetes type 2, controlled E11.9 ; Bronchitis J40 ; Edema, unspecified type R60.9 ; Weight gain R63.5 and Right knee pain, unspecified chronicity M25.561 [place] [id number] [place] [address] 20491- 8962 Oct, Mood disorder F39 [place] [id number] [place] [address] 45231- 2911 Oct, Lupus erythematosus L93.0 and Bilateral edema of lower extremity R60.0 [place] [id number] [place] [address] 18644- 7851 Oct, Mood disorder F39 and Anxiety F41.9 [place] [id number] [place] [address] 50517- 7266 September, Mood disorder F39 ; Anxiety F41.9 and Anger reaction R45.4 [place] [id number] [place] [address] 87465- 7767 September, Diabetes type 2, controlled E11.9 ; Edema, unspecified type R60.9 and Fatigue, unspecified type R53.83 [place] [address] [place] [address] 33542- 5574 Aug, Mood disorder F39 and Generalized anxiety disorder F41.1 [place] [id number] [place] [address] 34005- 2305 Aug, Diabetes type 2, controlled E11.9 ; Sinusitis J32.9 and Mood disorder F39 [facility] [id number] [place] [address] 28823- 2130 15 Aug, 2015 Lupus erythematosus L93.0 [facility] [id number] [place] [address] 53403- 1169 14 Aug, 2015 [facility] [id number] [place] [address] 24532- 0377 07 Aug, 2015 [facility] [id number] [place] [address] 35050- 9331 Jul, Diabetes type 2, controlled E11.9 [facility] [id number] [place] [address] 63706- 6486 Jul, Mood disorder F39 and Depression F32.9 [facility] [id number] [place] [address] 07257- 5845 Jul, Lupus erythematosus L93.0 and Diabetes type 2, controlled E11.9 [facility] [address] [place] [address] 31235- 7660 Jul, Mood disorder F39 and Anxiety F41.9 [facility] [address] [place] [address] 72670- 4228 Jul, [facility] [address] [place] [address] 31932- 1578 Jul, [facility] [id number] [place] [address] 54980- 4249 Jun, Mood disorder F39 and Anxiety F41.9 [facility] [id number] [place] [address] 45805- 4671 Jun, Mood disorder F39 [facility] [address] [place] [address] 61856- 9705 18 Jun, 2015 [facility] [id number] [address]- 9405 15 Jun, 2015 [facility] [address] [address]- 2491 08 Jun, 2015 Mood disorder F39 [facility] [address] [address]- 4485 Jun, [facility] [address] [place] [address] 45564- 7774 May, [facility] [address] [place] [address] 64406- 4309 May, [facility] [id number] [place] [address] 63674- 6973 May, [facility] [address] [place] [address] 05204- 2057 May, [facility] [id number] [place] [address] 64750- 2006 May, Anxiety F41.9 ; Dermatomyositis M33.90 and Diabetes type 2, controlled E11.9 [facility] [address] [address] May, Sinusitis J32.9 and Cough R05 [facility] [address] [address]- 4408 May, Mood disorder F39 [facility] [address] [place] [address] 95999- 1302 May, Adjustment disorder with mixed anxiety and depressed mood F43.23 [facility] [address] [address]- 7990 Apr, [facility] [address] [place] [address] 43491- 2188 Apr, [facility] [address] [address]- 4185 Apr, Generalized anxiety disorder F41.1 and Mood disorder F39 [facility] [id number] [place] [address] 02598- 9243 Mar, [facility] [id number] [place] [address] 23837- 9633 Mar, [facility] [id number] [place] [address] 52508- 0142 Mar, [facility] [id number] [place] [address] 40023- 7372 Mar, Mood disorder F39 [facility] [id number] [place] [address] 34463- 8082 Feb, [facility] [id number] [place] [address] 62437- 6108 Feb, Diabetes E11.9 and Bronchitis J40 [facility] [id number] [place] [address] 66488- 0124 Feb, [facility] [id number] [place] [address] 99519- 6926 Feb, [facility] [id number] [place] [address] 66673- 0074 Feb, Major depression, recurrent, full remission F33.42 and KELLY ( generalized anxiety disorder) F41.1 [facility] [id number] [place] [address] 54590- 9246 Feb, [facility] [id number] [place] [address] 19874- 3442 Feb, Single major depressive episode, in partial or unspecified remission F32.5 [facility] [id number] [place] [address] 14989- 8359 Jan, Fatigue 780.79 [facility] [id number] [place] [address] 55310- 6220 Jan, [facility] [id number] [place] [address] 33211- 7821 Jan, Diabetes with other specified manifestations, type II or unspecified type, not stated as uncontrolled 250.80 [place] [id number] [place] [address] 73245- 4375 Jan, [address] 90332- 4291 Dec, Hot flashes 627.2 ; Memory loss 780.93 and Joint pain 719.[address] 25921- 9424 Dec, Major depression, recurrent 296.30 ; Generalized anxiety disorder 300.02 ; Adjustment disorder with depressed mood 309.0 and No condition on [place] II V71.[address] 26491- 5271 Dec, [address] 21840- 5407 Nov, Cognitive and neurobehavioral dysfunction 294.9 ; Major depressive disorder, recurrent episode, moderate degree 296.32 and Anxiety state , unspecified 300.00 [place] [id number] [place] [address] 79298- 3044 Nov, [place] [id number] [place] [address] 13248- 6131 Nov, Diabetes with other specified manifestations, type II or unspecified type, not stated as uncontrolled 250.80 and Bronchitis [id number] [place] [address] 60817- 7224 Nov, Major depressive disorder, recurrent episode, moderate 296.32 and Anxiety disorder, unspecified 300.[address] 66506- 0314 Nov, Anxiety, generalized 300.02 ; Intermittent explosive disorder 312.34 ; No condition on Bethany II V71.09 and No condition on axis III V71.[address] 21192- 5996 Oct, Diabetes with other specified manifestations, type II or unspecified type, not stated as uncontrolled 250.80 ; Urinary tract infection, site not specified 599.0 and Bronchitis [id number] [place] [address] 33858- 3951 Oct, Intermittent explosive disorder 312.34 ; Bipolar 1 disorder , depressed, moderate 296.52 ; Major depression, chronic 296.20 ; No condition on Beth[place] II V71.09 and No condition on axis III V71.09 [place] [id number] [place] [address] 89950- 7742 Oct, Major depressive disorder, recurrent episode, moderate 296.32 ; Anxiety state 300.00 ; Cognitive decline 294.9 and No condition on Beth[place] II V71.09 [place] [id number] [place] [address] 38112- 0548 Oct, [place] [id number] [place] [address] 10549- 5714 Oct, Major depressive disorder, recurrent episode, moderate 296.32 ; Anxiety disorder, unspecified 300.00 and Persistent disorder of initiating or maintaining sleep 307.42 [place] [id number] [place] [address] 74891- 6804 September, Diabetes with other specified manifestations, type II or unspecified type, not stated as uncontrolled 250.80 ; Memory loss 780.93 and Cognitive complaints 799.59 [place] [id number] [place] [address] 27947- 7889 September, No condition on Bethany II V71.09 ; Major depression, recurrent 296.30 and Persistent mood [affective] disorder, unspecified 296.90 [place] [id number] [place] [address] 15641- 6926 Aug, [place] [id number] [place] [address] 32970- 9001 Aug, [place] [id number] [place] [address] 40696- 6019 Aug, [facility] [place] [facility] [address] [id number] [place] [address]- 9954 Jul, 2014 [facility] [place] [facility] [address] [id number] [place] [address]- 6553 Jul, 2014 [facility] [place] [facility] [address] [id number] [place] [address]- 1203 Jul, [facility] [place] [facility] [address] [id number] [place] [address]- 0471 Jul, [facility] [place] [facility] [address] [id number] [place] [address]- 5463 Jul, [facility] [place] [facility] [address] [id number] [place] [address]- 7406 Jun, 2014 [facility] [place] [facility] [address] [facility] [id number] [place] [address]- 5249 Jun, 2014 [facility] [place] [facility] [address] [id number] [place] [address]- 2983 Jun, 2014 [facility] [place] [facility] [address] [id number] [place] [address]- 4836 Jun, 2014 [facility] [place] [facility] [address] [facility] [id number] [place] [address]- 9247 Jun, 2014 [facility] [place] [facility] [address] [facility] [id number] [place] [address]- 2964 Jun, 2014 [facility] [place] [facility] [address] [id number] [place] [address]- 3145 Jun, 2014 [facility] [place] [facility] [address] [id number] [place] [address]- 9573 Jun, 2014 [facility] [place] [facility] [address] [id number] [place] [address]- 9016 Jun, 2014 [facility] [place] [facility] [address] [facility] [id number] [place] [address]- 9893 Jun, 2014 [facility] [place] [facility] [address] [id number] [place] [address] 05 Jun, 2014 [facility] [address] [id number] [place] [address] Jun, 2014 [facility] [place] [facility] [address] [id number] [place] [address] Jun, 2014 [facility] [place] [facility] [address] [id number] [place] [address] May, [facility] [place] [facility] [address] [id number] [place] [address] May, [facility] [place] [facility] [address] [id number] [place] [address] Apr, [facility] [address] [id number] [place] [address] Apr, [facility] [address] [id number] [place] [address] Apr, [facility] [address] [id number] [place] [address] Apr, [facility] [address] [id number] [place] [address] Apr, [facility] [address] [id number] [place] [address] Apr, [facility] [place] [facility] [address] [id number] [place] [address] Apr, [facility] [place] [facility] [address] [id number] [place] [address] Apr, [facility] [place] [facility] [address] [id number] [place] [address] 15 Apr, 2014 [facility] [place] [facility] [address] [id number] [place] [address] 15 Apr, 2014 [facility] [place] [facility] [address] [id number] [place] [address] Apr, [facility] [place] [facility] [address] [id number] [place] [address] 6439 Apr, [facility] [place] [facility] [address] [id number] [place] [address] Apr, [facility] [place] [facility] [address] [id number] [place] [address] 2406 Apr, [facility] [place] [facility] [address] [id number] [place] [address] 4879 Apr, [facility] [place] [facility] [address] [id number] [place] [address] 2067 Apr, [facility] [place] [facility] [address] [id number] [place] [address] 4433 Apr, [facility] [place] [facility] [address] [id number] [place] [address] 8867 Apr, [facility] [place] [facility] [address] [id number] [place] [address] 9032 Apr, [facility] [place] [facility] [address] [id number] [place] [address] 9011 Apr, [facility] [place] [facility] [address] [id number] [place] [address] 4059 Mar, [facility] [place] [facility] [address] [id number], [place] [address] 48[address] Mar, [facility] [place] [facility] [address] [id number], [place] [address] 8708 Mar, [facility] [place] [facility] [address] [id number] [place] [address] 0677 Mar, [facility] [place] [facility] [address] [id number] [place] [address] 4998 Mar, [facility] [place] [facility] [address] [id number], [place] [address] 0067 Mar, [facility] [place] [facility] [address] [id number], [place] [address] 6774 Mar, [facility] [place] [facility] [address] [id number] [place] [address] 7130 Mar, [facility] [place] [facility] [address] [id number], [place] [address] 8478 Mar, [facility] [place] [facility] [address] [facility] [id number] [place] [address] 4065 Mar, [facility] [place] [facility] [address] [id number] [place] [address] 8031 Mar, [facility] [place] [facility] [address] [facility] [id number] [place] [address] 8422 Mar, [facility] [place] [facility] [address] [id number] [place] [address] 9516 Mar, [facility] [place] [facility] [address] [facility] [id number], [place] [address] 0918 Feb, [facility] [place] [facility] [address] [id number], [place] [address] 8921 Feb, [facility] [place] [facility] [address] [facility] [id number] [place] [address] 1285 30 Feb, 2014 [facility] [place] [facility] [address] [facility] [id number], [place] [address] 4633 Feb, [facility] [place] [facility] [address] [id number], [place] [address] 2388 Feb, [facility] [place] [facility] [address] [id number], [place] [address] 3251 Feb, [facility] [place] [facility] [address] [id number], [place] [address] 1169 Feb, [facility] [place] [facility] [address] [facility] [id number], [place] [address] 9498 Feb, [facility] [place] [facility] [address] [facility] [id number], [place] [address] 2877 Feb, [facility] [place] [facility] [address] [id number] [place] [address] 2384 Feb, [facility] [place] [facility] [address] [id number] [place] [address]- 9250 Feb, [facility] [place] [facility] [address] [id number] [place] [address]- 6346 Feb, [facility] [place] [facility] [address] [id number] [place] [address]- 8583 10 Feb, 2014 [facility] [place] [facility] [address] [id number] [place] [address]- 3883 Feb, [facility] [place] [facility] [address] [id number] [place] [address] 9861 Feb, [facility] [place] [facility] [address] [id number] [place] [address]- 2214 10 Jan, 2014 [facility] [place] [facility] [address] [id number] [place] [address] 3004 08 Jan, 2013 [facility] [place] [facility] [address] [id number] [place] [address]- 8504 08 Jan, 2014 [facility] [place] [facility] [address] [id number] [place] [address]- 5604 08 Jan, 2013 [facility] [place] [facility] [address] [id number] [place] [address] 4819 Jan, [facility] [place] [facility] [address] [id number] [place] [address]- 2806 Dec, [facility] [place] [facility] [address] [id number] [place] [address] 8410 Dec, [facility] [place] [facility] [address] [id number] [place] [address]- 3466 Dec, [facility] [place] [facility] [address] [id number] [place] [address]- 7286 Dec, [facility] [place] [facility] [address] [id number] [place] [address]- 7904 Nov, [facility] [place] [facility] [address] [id number] [place] [address] 5096 Nov, [facility] [place] [facility] [address] [id number] [place] [address]- 0698 Nov, [facility] [place] [facility] [address] [id number] [place] [address]- 3248 Nov, [facility] [place] [facility] [address] [id number] [place] [address]- 1723 Nov, [facility] [place] [facility] [address] [id number] [place] [address]- 9806 Nov, [facility] [place] [facility] [address] [id number] [place] [address] 5214 Nov, [facility] [place] [facility] [address] [id number] [place] [address]- 6312 Nov, [facility] [place] [facility] [address] [id number] [place] [address]- 2244 Nov, [facility] [place] [facility] [address] [id number] [place] [address]- 0831 Nov, [facility] [place] [facility] [address] [id number] [place] [address] 6041 Oct, [facility] [place] [facility] [address] [id number] [place] [address] 0363 Oct, [facility] [place] [facility] [address] [id number] [place] [address] 3681 September, [facility] [place] [facility] [address] [id number] [place] [address] 3043 September, [facility] [place] [facility] [address] [id number] [place] [address] 1961 September, [facility] [place] [facility] [address] [id number] [place] [address]- 6965 September, [facility] [place] [facility] [address] [id number] [place] [address]- 9047 16 Aug, 2013 [facility] [place] [facility] [address] [id number] [place] [address]- 0493 14 Aug, 2013 [facility] [place] [facility] [address] [id number] [place] [address]- 0218 14 Aug, 2013 [facility] [place] [facility] [address] [id number] [place] [address]- 9255 24 Jul, 2013 [facility] [place] [facility] [address] [id number] [place] [address]- 0223 24 Jul, 2013 [facility] [place] [facility] [address] [id number] [place] [address]- 0197 14 Jul, 2013 [facility] [place] [facility] [address] [id number] [place] [address]- 0046 14 Jul, 2013 [facility] [place] [facility] [address] [id number] [place] [address]- 5066 20 May, 2013 [facility] [place] [facility] [address] [id number] [place] [address]- 4171 17 May, 2013 [facility] [place] [facility] [address] [id number] [place] [address]- 1411 17 May, 2013 [facility] [place] [facility] [address] [facility] [id number] [place] [address] 2269 15 Mar, 2013 [facility] [place] [facility] [address] [id number] [place] [address]- 8680 15 Mar, 2013 [facility] [place] [facility] [address] [id number] [place] [address]- 0764 13 Mar, 2013 [facility] [place] [facility] [address] [id number] [place] [address]- 6532 13 Mar, 2013 [facility] [place] [facility] [address] [id number] [place] [address]- 6980 16 Feb, 2013 [facility] [place] [facility] [address] [id number] [place] [address] Feb, [facility] [place] [facility] [address] [id number] [place] [address]- 1393 Feb, [facility] [place] [facility] [address] [id number] [place] [address]- 8032 Jan, [facility] [place] [facility] [address] [id number] [place] [address]- 3515 Jan, [facility] [place] [facility] [address] [id number] [place] [address]- 3885 Jan, [facility] [place] [facility] [address] [id number] [place] [address]- 0724 Dec, [facility] [place] [facility] [address] [id number] [place] [address]- 1264 Dec, [facility] [address] [id number] [place] [address]- 3642 Dec, [facility] [address] [id number] [place] [address]- 4122 Dec, [facility] [address] [id number] [place] [address]- 9393 Nov, [facility] [address] [id number] [place] [address]- 2800 Oct, [facility] [address] [id number] [place] [address]- 9404 Oct, [facility] [address] [id number] [place] [address]- 8267 September, [facility] [place] [facility] [address] [id number] [place] [address]- 6316 September, [facility] [place] [facility] [address] [id number] [place] [address]- 0736 September, [facility] [place] [facility] [address] [id number] [place] [address]- 5389 Aug, [facility] [place] [facility] [address] [id number] [place] [address]- 6185 18 Aug, 2012 [facility] [place] [facility] [address] [id number] [place] [address]- 7593 17 Aug, 2012 [facility] [place] [facility] [address] [id number] [place] [address]- 9368 09 Aug, 2012 [facility] [place] [facility] [address] [id number] [place] [address]- 1318 26 Jul, 2012 [facility] [place] [facility] [address] [id number] [place] [address]- 8607 25 Jul, 2012 [facility] [place] [facility] [address] [id number] [place] [address]- 5112 21 Jul, 2012 [facility] [place] [facility] [address] [id number] [place] [address]- 1319 15 Jul, 2012 [facility] [place] [facility] [address] [id number] [place] [address]- 8027 14 Jul, 2012 [facility] [place] [facility] [address] [id number] [place] [address]- 6008 Jul, [facility] [place] [facility] [address] [id number] [place] [address]- 6243 Jul, [facility] [place] [facility] [address] [id number] [place] [address]- 5941 Jun, [facility] [place] [facility] [address] [id number] [place] [address]- 4050 Jun, [facility] [place] [facility] [address] [id number] [place] [address]- 0129 Jun, [facility] [place] [facility] [address] [id number] [place] [address]- 0132 Jun, [facility] [place] [facility] [address] [id number] [place] [address]- 3044 May, [facility] [place] [facility] [address] [id number] [place] [address]- 9708 May, [facility] [place] [facility] [address] [id number] [place] [address]- 4996 May, [facility] [place] [facility] [address] [id number] [place] [address]- 8387 May, [facility] [place] [facility] [address] [id number] [place] [address]- 4830 May, [facility] [place] [facility] [address] [id number] [place] [address]- 6696 Apr, [facility] [place] [facility] [address] [id number] [place] [address]- 0765 Apr, [facility] [place] [facility] [address] [id number] [place] [address]- 1646 Mar, [facility] [place] [facility] [address] [id number] [place] [address]- 6580 Mar, [facility] [place] [facility] [address] [id number] [place] [address]- 0819 Mar, [facility] [place] [facility] [address] [id number] [place] [address]- 2354 Mar, [facility] [place] [facility] [address] [id number] [place] [address]- 5688 Mar, [facility] [place] [facility] [address] [id number] [place] [address]- 3473 Mar, [facility] [place] [facility] [address] [id number] [place] [address]- 2940 Mar, [facility] [place] [facility] [address] [id number] [place] [address]- 9250 Mar, [facility] [place] [facility] [address] [id number] [place] [address]- 4574 Mar, [facility] [place] [facility] [address] [id number] [place]68 Mar, [facility] [place] [facility] [address] [id number] [place] [address]- 1439 Feb, [facility] [place] [facility] [address] [id number] [place] [address]- 1306 Feb, [facility] [place] [facility] [address] [id number] [place] [address]- 6162 Feb, [facility] [place] [facility] [address] [id number] [place] [address]- 1506 Feb, [facility] [place] [facility] [address] [id number] [place] [address]- 8625 Feb, [facility] [place] [facility] [address] [id number] [place] [address]- 5366 Feb, [facility] [place] [facility] [address] [id number] [place] [address]- 3932 Feb, [facility] [place] [facility] [address] [id number] [place] [address]- 7458 Jan, [facility] [place] [facility] [address] [id number] [place] [address]- 9308 Jan, [facility] [place] [facility] [address] [id number] [place] [address]- 4738 Dec, [facility] [place] [facility] [address] [id number] [place] [address]- 2073 Dec, [facility] [place] [facility] [address] [id number], [place] [address]- 5620 Dec, [facility] [place] [facility] [address] [id number], [place] [address]- 5318 Dec, [facility] [place] [facility] [address] [id number] [place] [address]- 9996 Dec, [facility] [place] [facility] [address] [id number], [place] [address]- 2705 Dec, [facility] [place] [facility] [address] [id number] [place] [address]- 4764 Nov, [facility] [place] [facility] [address] [id number] [place] [address]- 6437 Nov, [facility] [place] [facility] [address] [id number] [place] [address]- 8142 Nov, [facility] [place] [facility] [address] [id number] [place] [address]- 9587 Nov, [facility] [place] [facility] [address] [id number] [place] [address]- 4835 September, [facility] [place] [facility] [address] [id number] [place] [address]- 4891 September, [facility] [place] [facility] [address] [id number] [place] [address], [place] [address]- 1914 September, [facility] [place] [facility] [address] [id number] [place] [address]- 8731 Jul, [facility] [place] [facility] [address] [id number] [place] [address]- 3988 Jun, [facility] [place] [facility] [address] [id number] [place] [address]- 8137 Jun, [facility] [place] [facility] [address] [facility] [id number] [place] [address]- 0355 Jun, [facility] [place] [facility] [address] [facility] [id number] [place] [address]- 9283 Apr, [facility] [place] [facility] [address] [id number] [place] [address]- 3154 Mar, [facility] [place] [facility] [address] [id number] [place] [address]- 2071 Mar, [facility] [place] [facility] [address] [id number] [place] [address]- 9945 Feb, [facility] [place] [facility] [address] [id number] [place]857 Feb, [facility] [place] [facility] [address] [facility] [id number] [place] Feb, [facility] [address] [facility] [id number] [place] [address]- 7556 Jul, [facility] [address] [facility] [id number] [place] [address]- 7937 Feb, IMMUNIZATIONS No Known Immunizations SOCIAL HISTORY Never Assessed REASON FOR VISIT medication PLAN OF CARE VITAL SIGNS MEDICATIONS Medication Instructions Dosage Frequency Start Date End Date Duration Status Venlafaxine HCl 75 MG Orally 2 times a day 1 tablet with food 12h Jan, 30 day(s) Active RESULTS No Results PROCEDURES [...]
--- OUTSIDE RECORDS SUMMARY | 2018-02-03 00:09 | XMS REPORT ---
Author Author ROSANA CRUMP [facility] [employer] Address Unknown Phone Unavailable Care Team Providers Care Ring Rolling Machine Operator Name Role Phone ROSANA CRUMP CP Unavailable [...] patient &/family, 30 minutes, established patient CPT-4 06820 Mar 04, 2016 Results No Known Results Summary Purpose [employer] Submission
--- OUTSIDE RECORDS SUMMARY | 2018-02-03 00:09 | XMS REPORT ---
Author Author ROSANA CRUMP Organization [employer] Address Unknown Phone Unavailable Care Team Providers Care Manager Assurance Name Role Phone ROSANA CRUMP CP Unavailable Allergies No Known Allergies Problems Problem Type Condition Code Onset Dates Condition Status Problem Diabetes type 2, controlled E11.9 Active Problem Allergic rhinitis due to pollen J30.1 Active Problem Lupus erythematosus L93.0 Active Assessment Generalized anxiety disorder F41.1 Active Assessment Mood disorder F39 Active Problem Mood disorder F39 Active Problem Menopause Z78.0 Active Medications No Known Medications Procedures Procedure Coding System Code Date Psychotherapy, patient &/family, 45 minutes, established patient CPT-4 46010 May 13, 2015 Results No Known Results Summary Purpose [employer] Submission
--- OUTSIDE RECORDS SUMMARY | 2018-02-03 00:09 | XMS REPORT ---
Author MACY Wadsworth Organization [employer] Address Unknown Phone Unavailable Care Team Providers Care Operations Trainer Name Role Phone MACY TAMAYO CP Unavailable Allergies No Known Allergies Problems Problem Type Condition Code Onset Dates Condition Status Problem Diabetes type 2, controlled E11.9 Active Problem Allergic rhinitis due to pollen J30.1 Active Problem Lupus erythematosus L93.0 Active Assessment Lupus erythematosus L93.0 Active Problem Mood disorder F39 Active Problem Menopause Z78.0 Active Medications No Known Medications Results No Known Results Summary Purpose [employer] Submission
--- OUTSIDE RECORDS SUMMARY | 2018-02-03 00:09 | XMS REPORT ---
Author MACY Wadsworth Organization [employer] Address Unknown Phone Unavailable Care Team Providers Care Compounder Flavorings Name Role Phone MACY TAMAYO CP Unavailable Allergies No Known Allergies Problems Problem Type Condition Code Onset Dates Condition Status Problem Diabetes type 2, controlled E11.9 Active Problem Allergic rhinitis due to pollen J30.1 Active Problem Lupus erythematosus L93.0 Active Problem Mood disorder F39 Active Problem Menopause Z78.0 Active Medications Medication Code System Code Instructions Start Date End Date Status Dosage Xanax [facility] [address]-61 2 MG Orally Twice a day as needed for anxiety. Must last 30 days May 13, 2015 0.5-1 tablet Results No Known Results Summary Purpose [employer] Submission
[2018-02-03] MEDS ORDERED: KETOROLAC 30 MG/ML VIAL IVP STA (00:10)
[2018-02-03] MEDS ORDERED: NS IV 1000 ML 1,000 ML IV STA (00:10)
--- OUTSIDE RECORDS SUMMARY | 2018-02-03 00:10 | XMS REPORT ---
Author MACY Wadsworth Organization [employer] Address Unknown Phone Unavailable Care Team Providers Care Placement Interviewer Name Role Phone MACY TAMAYO CP Unavailable [...]
--- OUTSIDE RECORDS SUMMARY | 2018-02-03 00:10 | XMS REPORT ---
Author Author MACY TAMAYO Organization [facility] Address [address] [place] [address] Care Team Providers Care Speech Lang Path Name Role Phone MACY TAMAYO Unavailable PROBLEMS Type Condition ICD9-CM Code [id number] Code Onset Dates Condition Status SNOMED Code Problem Menopause Z78.0 Active 586950218 Problem Lupus erythematosus L93.0 Active 730542269 Problem Other chronic pain G89.29 Active 87033056 Problem Anxiety F41.9 Active 53923938 Problem Diabetes type 2, controlled E11.9 Active 71088707 Problem Mood disorder F39 Active 78413193 Problem Osteoarthritis of right knee, unspecified osteoarthritis type M17.9 Active 260716409 Problem Allergic rhinitis due to pollen J30.1 Active 80596308 ALLERGIES Substance Reaction Event Type Date Status Fluarix Quadrivalent vomiting Drug Allergy May, Active Zoloft makes very angry Drug Allergy May, Active Fluarix vomiting Drug Allergy May, Active Aspirin rash Drug Allergy May, Active Latex, Natural Rubber rash Non Drug Allergy May, Active SOCIAL HISTORY No smoking Hx information available PLAN OF CARE Activity Details Follow Up 4 Weeks Reason:chronic pain VITAL SIGNS Height 62 in 2016-06-03 Weight 239.9 lbs 2016-06-03 Temperature 97.9 degrees Fahrenheit 2016-06-03 Heart Rate 78 bpm 2016-06-03 Respiratory Rate 20 2016-06-03 BMI 43.87 kg/m2 2016-06-03 Blood pressure systolic 122 mmHg 2016-06-03 Blood pressure diastolic 82 mmHg 2016-06-03 MEDICATIONS Medication Instructions Dosage Frequency Start Date End Date Duration Status Victoza 0.6 mg/0.1 mL (18 mg/3 mL) inject 0.3 milliliter (1.8 mg) by subcutaneous route once daily Dec, Active BD U/F Mini Pen Needle 31G X 5 MM SQ Once a day as directed 24h Jul, Active PredniSONE 20 MG Orally Once a day 1 tablet 24h May, 30 Active Spironolactone 25 MG Orally Once a day 1 tablet 24h Active Omeprazole 20 mg Orally Once a day 1 capsule 24h 30 Active Tessalon Perles 200 mg Orally Three times a day prn cough 1 capsule as needed May, Active Actos 30 MG Orally Once a day 1 tablet 24h Jul, 30 Active Glucocard Expression Test - as directed 24h Nov, Active Xanax 2 MG Orally Twice a day 1 tablet 12h Apr, Active Loratadine 10 mg Orally Once a day TAKE ONE TABLET BY MOUTH DAILY 24h 30 Active Potassium Chloride Marie ER 20 MEQ Orally Once a day 1 tablet with food 24h Active Methotrexate 2.5 MG Orally 1 time per week 6 28 Active Proventil HFA 108 (90 Base) MCG/ACT 2 puffs as needed 6h Active Lasix 20 mg Orally Once a day 1 tablet 24h Nov, 30 day(s) Active Lisinopril-Hydrochlorothiazide 20-25 MG Orally Once a day 1 tablet 24h 30 Active Folic Acid 1 MG 1 tablet 30 Active Glucocard Expression Monitor w/Device as directed Nov, Active Acidophilus 100 MG Orally Once a day 1 capsule 24h May, Active Nyamyc 240683 UNIT/GM APPLY TO AFFECTED AREA 12h 5 Active Diclofenac Sodium 50 MG Orally Twice a day 1 tablet 12h 30 Active RESULTS No Results PROCEDURES Procedure Date Ordered Related Diagnosis Body Site Office Visit, Est Pt., Level 3 Jun 03, 2016 IMMUNIZATIONS No Known Immunizations
--- OUTSIDE RECORDS SUMMARY | 2018-02-03 00:10 | XMS REPORT ---
Author Author HENRY THOMPSON [facility] eClinicalWorks Address Unknown Phone Unavailable Care Team Providers Care Customer Service Security Officer Name Role Phone HENRY THOMPSON CP Unavailable Allergies No Known Allergies Problems Problem Type Condition Code Onset Dates Condition Status Assessment Osteoarthritis of right knee, unspecified osteoarthritis type M17.9 Active Problem Lupus erythematosus L93.0 Active Problem Diabetes type 2, controlled E11.9 Active Problem Osteoarthritis of right knee, unspecified osteoarthritis type M17.9 Active Problem Menopause Z78.0 Active Assessment Tear of lateral meniscus of right knee, current, unspecified tear type, initial encounter S83.281A Active Problem Allergic rhinitis due to pollen J30.1 Active Problem Mood disorder F39 Active Medications No Known Medications Procedures Procedure Coding System Code Date Office Visit, Est Pt., Level 3 CPT-4 [id number] Mar 31, 2016 Vital Signs Date/Time: Mar 31, 2016 Blood Pressure Diastolic 72 mmHg Blood Pressure Systolic 124 mmHg Height 62 in Results No Known Results Summary Purpose eClinicalWorks Submission
--- OUTSIDE RECORDS SUMMARY | 2018-02-03 00:10 | XMS REPORT ---
Author YUKI Thompson [facility] eClinicalWorks Address Unknown Phone Unavailable Care Team Providers Care Second Hand Paper Machine Name Role Phone YUKI BUSH Unavailable Allergies, Adverse Reactions, Alerts Substance Reaction Event Type Fluarix Quadrivalent vomiting Drug Allergy Zoloft makes very angry Drug Allergy Fluarix vomiting Drug Allergy Aspirin rash Drug Allergy Latex, Natural Rubber rash Non Drug Allergy Problems Problem Type Condition Code Onset Dates Condition Status Assessment KELLY (generalized anxiety disorder) F41.1 Active Problem Diabetes with other specified manifestations, type II or unspecified type, not stated as uncontrolled 250.80 Active Assessment Major depression, recurrent, full remission F33.42 Active Problem Depressive disorder, not elsewhere classified 311 Active Problem Screening for malignant neoplasm of the cervix V76.2 Active Problem Other specified menopausal and postmenopausal disorder 627.8 Active Problem Mastodynia 611.71 Active Problem Allergic rhinitis, cause unspecified 477.9 Active Problem Edema 782.3 Active Problem Unspecified episodic mood disorder 296.90 Active Medications Medication Code System Code Instructions Start Date End Date Status Dosage Victoza [facility] [address]-41 0.6 mg/0.1 mL (18 mg/3 mL) Jan 13, 2012 inject 0.3 milliliter (1.8 mg) by subcutaneous route once daily Omeprazole [facility] 01899800116 20 MG Orally Once a day 1 capsule Furosemide [facility] [address]-86 40 mg Jan 17, 2012 1 tablet by Oral route 2 times per day for 5 days ProAir HFA [facility] [address]-16 90 mcg/actuation Mar 19, 2014 2 puffs by Inhalation route 4 times per day Folic Acid [facility] 51202521466 1 MG TAKE ONE TABLET BY MOUTH DAILY ( DO NOT TAKE ON DAYS YOU TAKE METHOTREXATE) Methotrexate [facility] [address]-44 2.5 MG Orally 1 time per week 6 Lisinopril-Hydrochlorothiazide [facility] 79718772409 20-25 MG Orally Once a day 1 tablet Diclofenac Sodium [facility] [address]-76 50 MG Orally Twice a day October 08, 2014 1 tablet Loratadine [facility] [address]-26 10 mg Mar 19, 2014 take 1 tablet (10 mg) by oral route once daily Ativan [facility] [address]-62 1 MG Twice a day PRN for anxiety July 30, 2014 1 tablet by Oral route 2 times per day PRN anxiety Potassium Chloride Marie ER [facility] 64558332893 10 MEQ TAKE TWO TABLETS BY MOUTH ONCE DAILY PredniSONE [facility] [address]-40 15 mg TAKE ONE TABLET BY MOUTH DAILY WITH FOOD OR MILK Procedures Procedure Coding System Code Date Office Visit, Est Pt., Level 3 CPT-4 23084 Mar 06, 2015 Vital Signs Date/Time: Mar 06, 2015 Cardiac Monitoring Heart Rate 92 bpm Weight 234.4 lbs Height 62 in BMI 42.87 Index Blood Pressure Diastolic 75 mmHg Blood Pressure Systolic 120 mmHg Results No Known Results Summary Purpose eClinicalWorks Submission
--- OUTSIDE RECORDS SUMMARY | 2018-02-03 00:10 | XMS REPORT ---
Author Author MACY TAMAYO [facility] Address [address] [place] [address] Care Team Providers Care Electric Utility Lineworker Name Role Phone MACY TAMAYO Unavailable PROBLEMS Type Condition ICD9-CM Code [id number] Code Onset Dates Condition Status SNOMED Code Problem Menopause Z78.0 Active 536076051 Problem Lupus erythematosus L93.0 Active 217118799 Problem Other chronic pain G89.29 Active 27703064 Problem Anxiety F41.9 Active 05464913 Problem Diabetes type 2, controlled E11.9 Active 02041380 Problem Mood disorder F39 Active 00522726 Problem Osteoarthritis of right knee, unspecified osteoarthritis type M17.9 Active 037121054 Problem Allergic rhinitis due to pollen J30.1 Active 03094035 ALLERGIES Unknown Allergies SOCIAL HISTORY No smoking Hx information available PLAN OF CARE VITAL SIGNS MEDICATIONS Medication Instructions Dosage Frequency Start Date End Date Duration Status Triamcinolone Acetonide 0.1 % Externally Twice a day 1 application to affected area 12h 19 May, 2016 Active RESULTS No Results PROCEDURES No Known procedures IMMUNIZATIONS No Known Immunizations
--- OUTSIDE RECORDS SUMMARY | 2018-02-03 00:10 | XMS REPORT ---
Author Author MACY TAMAYO Organization [facility] Address [address] [place] [address] Care Team Providers Care Vegetable Washing Machine Operator Name Role Phone MACY TAMAYO Unavailable PROBLEMS Type Condition ICD9-CM Code PQP33-DM Code Onset Dates Condition Status SNOMED Code Problem Menopause Z78.0 Active 990157843 Problem Lupus erythematosus L93.0 Active 309626149 Problem Other chronic pain G89.29 Active 04396387 Problem Anxiety F41.9 Active 06686547 Problem Diabetes type 2, controlled E11.9 Active 63230639 Problem Mood disorder F39 Active 99454303 Problem Osteoarthritis of right knee, unspecified osteoarthritis type M17.9 Active 318952409 Problem Allergic rhinitis due to pollen J30.1 Active 63100491 ALLERGIES No Information SOCIAL HISTORY Never Assessed PLAN OF CARE VITAL SIGNS MEDICATIONS Medication Instructions Dosage Frequency Start Date End Date Duration Status Xanax 2 MG Orally Twice a day 1 tablet 12h 09 Apr, 2016 Active RESULTS No Results PROCEDURES No [...]
--- OUTSIDE RECORDS SUMMARY | 2018-02-03 00:11 | XMS REPORT ---
Author MACY Wadsworth Organization e[employer] Address Unknown Phone Unavailable Care Team Providers Care Publications Manager Name Role Phone MACY TAMAYO CP Unavailable [...]
--- OUTSIDE RECORDS SUMMARY | 2018-02-03 00:11 | XMS REPORT ---
Author Author MACY TAMAYO Organization [employer] Address Unknown Phone Unavailable Care Team Providers Care Meat Counter Clerk Name Role Phone MACY TAMAYO CP Unavailable Allergies No Known Allergies Problems Problem Type Condition Code Onset Dates Condition Status Problem Lupus erythematosus L93.0 Active Problem Diabetes type 2, controlled E11.9 Active Problem Osteoarthritis of right knee, unspecified osteoarthritis type M17.9 Active Problem Menopause Z78.0 Active Problem Allergic rhinitis due to pollen J30.1 Active Problem Mood disorder F39 Active Medications Medication Code System Code Instructions Start Date End Date Status Dosage Lisinopril-Hydrochlorothiazide [facility] 27255000405 20-25 MG Orally Once a day 1 tablet Loratadine [facility] [address]-50 10 mg Orally Once a day TAKE ONE TABLET BY MOUTH DAILY Potassium Chloride Marie ER [facility] [address]-45 20 MEQ Orally Once a day 1 tablet with food Results No Known Results Summary Purpose eClinicalWorks Submission
--- OUTSIDE RECORDS SUMMARY | 2018-02-03 00:11 | XMS REPORT ---
Author Author HENRY THOMPSON [facility] Address [address] [place] [address] Care Team Providers Care 21 Dealer Name Role Phone HENRY THOMPSON Unavailable PROBLEMS Type Condition ICD9-CM Code WSE45-AX Code Onset Dates Condition Status SNOMED Code Problem Mood disorder F39 Active 48397896 Problem Menopause Z78.0 Active 511159258 Problem Other chronic pain G89.29 Active 29623378 Problem Anxiety F41.9 Active 31303591 Problem Diabetes type 2, controlled E11.9 Active 07270679 Problem Allergic rhinitis due to pollen J30.1 Active 94506968 Problem Osteoarthritis of right knee, unspecified osteoarthritis type M17.9 Active 491610680 Problem Lupus erythematosus L93.0 Active 313501177 ALLERGIES Unknown Allergies SOCIAL HISTORY No smoking Hx information available PLAN OF CARE Activity Details Follow Up prn Reason: VITAL SIGNS Height 62 in 2016-05-19 Blood pressure systolic 116 mmHg 2016-05-19 Blood pressure diastolic 72 mmHg 2016-05-19 MEDICATIONS Unknown Medications RESULTS No Results PROCEDURES Procedure Date Ordered Related Diagnosis Body Site Office Visit, Est Pt., Level 3 May 19, 2016 IMMUNIZATIONS No Known Immunizations
--- OUTSIDE RECORDS SUMMARY | 2018-02-03 00:11 | XMS REPORT ---
Author MACY Wadsworth Organization e[employer] Address Unknown Phone Unavailable Care Team Providers Care Web Production Designer Name Role Phone MACY TAMAYO CP Unavailable Allergies, Adverse Reactions, Alerts Substance Reaction Event Type Fluarix Quadrivalent vomiting Drug Allergy Zoloft makes very angry Drug Allergy Fluarix vomiting Drug Allergy Aspirin rash Drug Allergy Latex, Natural Rubber rash Non Drug Allergy Problems Problem Type Condition ICD-9 Code Onset Dates Condition Status Assessment Memory loss 780.93 Active Problem Diabetes with other specified manifestations, type II or unspecified type, not stated as uncontrolled 250.80 Active Assessment Hot flashes 627.2 Active Assessment Joint pain 719.40 Active Problem Depressive disorder, not elsewhere classified 311 Active Problem Screening for malignant neoplasm of the cervix V76.2 Active Problem Other specified menopausal and postmenopausal disorder 627.8 Active Problem Mastodynia 611.71 Active Problem Allergic rhinitis, cause unspecified 477.9 Active Problem Edema 782.3 Active Problem Unspecified episodic mood disorder 296.90 Active Medications Medication Code System Code Instructions Start Date End Date Status Dosage Fluoxetine [facility] [address]-79 20 MG Orally Once a day 1 capsule in the morning Loratadine [facility] [address]-10 10 mg Mar 19, 2014 take 1 tablet (10 mg) by oral route once daily Furosemide [facility] [address]-67 40 mg Jan 17, 2012 1 tablet by Oral route 2 times per day for 5 days Potassium Chloride [facility] [address]-77 10 mEq Mar 19, 2014 2 tablet by Oral route 1 time per day Ativan [facility] [address]-76 1 MG Twice a day PRN for anxiety July 30, 2014 1 tablet by Oral route 2 times per day PRN anxiety Omeprazole [facility] 31834136894 20 MG Orally Once a day 1 capsule ProAir HFA [facility] [address]-15 90 mcg/actuation Mar 19, 2014 2 puffs by Inhalation route 4 times per day Methotrexate [facility] [address]-25 2.5 MG Orally 1 time per week 6 Diclofenac Sodium [facility] [address]-75 50 MG Orally Twice a day October 08, 2014 1 tablet Victoza [facility] [address]-08 0.6 mg/0.1 mL (18 mg/3 mL) Jan 13, 2012 inject 0.3 milliliter (1.8 mg) by subcutaneous route once daily Folic Acid [facility] 18246234920 1 MG TAKE ONE TABLET BY MOUTH DAILY ( DO NOT TAKE ON DAYS YOU TAKE METHOTREXATE) PredniSONE [facility] 09768213027 20 MG TAKE ONE TABLET BY MOUTH DAILY WITH FOOD OR MILK Lamictal [facility] [address]-78 25 MG Orally take one per day X7 days, then take Twice a day October 30, 2014 1 tablet Lisinopril-Hydrochlorothiazide [facility] [address]-88 20-25 MG Orally Once a day September 23, 2014 1 tablet Procedures Procedure Coding System Code Date Office Visit, Est Pt., Level 3 CPT-4 70405 Jan 14, 2015 Vital Signs Date/Time: Jan 14, 2015 Temperature 97.6 F Weight 222.6 lbs Height 62 in BMI 40.71 Index Blood Pressure Diastolic 70 mmHg Blood Pressure Systolic 122 mmHg Cardiac Monitoring Heart Rate 82 bpm Results No Known Results Summary Purpose eClinicalWorks Submission
--- OUTSIDE RECORDS SUMMARY | 2018-02-03 00:11 | XMS REPORT ---
Author MACY Wadsworth Organization e[employer] Address Unknown Phone Unavailable Care Team Providers Care Supervisor Grain And Yeast Plants Name Role Phone MACY TAMAYO CP Unavailable [...]
--- OUTSIDE RECORDS SUMMARY | 2018-02-03 00:11 | XMS REPORT ---
Author MACY Wadsworth Organization [employer] Address Unknown Phone Unavailable Care Team Providers Care Head Of Human Resources Name Role Phone MACY TAMAYO CP Unavailable [...] Active Problem Lupus erythematosus L93.0 Active Assessment Rash R21 Active Problem Mood disorder F39 Active Problem Menopause Z78.0 Active Medications Medication Code System Code Instructions Start Date End Date Status Dosage Glucocard Expression Test [facility] [id number] - once a day December 21, 2015 as directed Actos [facility] [address]-47 30 MG Orally Once a day August 17, 2015 1 tablet Lisinopril-Hydrochlorothiazide [facility] 43454246498 20-25 MG Orally Once a day 1 tablet Spironolactone [facility] 79392239330 25 MG Orally Once a day 1 tablet Potassium Chloride Marie ER [facility] [address]-88 20 MEQ Orally Once a day 1 tablet with food BD U/F Mini Pen Needle [facility] 8290-642903 31G X 5 MM SQ Once a day August 03, 2015 as directed Magnesium Oxide [facility] [address]-73 400 MG Orally Once a day Jan 29, 2016 July 27, 2016 1 tablet PredniSONE [facility] [address]-11 20 MG Orally Once a day Jun 17, 2015 1 tablet Nyamyc [facility] [address]-29 770357 UNIT/GM Twice a day APPLY TO AFFECTED AREA Proventil HFA [facility] 32427861772 108 (90 Base) MCG/ACT 4 times a day 2 puffs as needed Tessalon Perles [facility] [address]-53 200 mg Orally Three times a day prn cough Jun 04, 2015 1 capsule as needed Glucocard Expression Monitor [facility] 8317-232077 w/Device December 21, 2015 as directed Lasix [facility] [address]-60 20 mg Orally Once a day December 21, 2015 1 tablet HydrOXYzine HCl [facility] [address]-89 25 MG Orally every 8 hrs Mar 04, 2016 1 tablet as needed Folic Acid [facility] 46670368935 1 MG Once a day, do not take on days you take your methotrexate 1 tablet Diclofenac Sodium [facility] 72906860198 50 MG Orally Twice a day 1 tablet Victoza [facility] [address]-11 0.6 mg/0.1 mL (18 mg/3 mL) Jan 13, 2012 inject 0.3 milliliter (1.8 mg) by subcutaneous route once daily Loratadine [facility] 00385038235 10 MG TAKE ONE TABLET BY MOUTH DAILY Omeprazole [facility] [address]-25 20 mg Orally Once a day 1 capsule Methotrexate [facility] 77136850840 2.5 MG Orally 1 time per week 6 PredniSONE [facility] [address]-91 20 mg Orally Once a day. add to other morning prednisone for 5 days only Mar 04, 2016 Mar 09, 2016 1 tablet Procedures Procedure Coding System Code Date Office Visit, Est Pt., Level 3 CPT-4 02429 Mar 04, 2016 Vital Signs Date/Time: Mar 04, 2016 Cardiac Monitoring Heart Rate 100 bpm Weight 236.5 lbs Height 62 in BMI 43.25 Index Blood Pressure Diastolic 77 mmHg Blood Pressure Systolic 113 mmHg Results No Known Results Summary Purpose eClinicalWorks Submission
--- OUTSIDE RECORDS SUMMARY | 2018-02-03 00:14 | XMS REPORT | Continuity of Care Document ---
Author Author [facility] Address Unknown Phone Unavailable Allergies Active Description Code Type Severity Reaction Onset Reported/Identified Relationship to Patient Clinical Status Yes aspirin Drug Allergy N/A N/A 06/01/2009 Yes aspirin Drug Allergy 06/01/2009 Yes aspirin [id number] Drug Allergy Severe N/A 11/12/2010 Yes flu vaccine Drug Allergy 02/23/2011 Yes Latex, Natural Rubber Drug Allergy N/A N/A 03/29/2012 Yes Latex, Natural Rubber Drug Allergy 03/29/2012 Medications There is no data. Problems Date Dx Coded Attending Type Code Diagnosis Diagnosed By 03/17/2008 LINDSAY STRONG DO 372.30 Conjunctivitis 03/17/2008 372.30 Conjunctivitis 03/17/2008 372.30 Conjunctivitis 03/17/2008 BELKIS MG MACY T 372.30 Conjunctivitis 03/17/2008 BELKIS MG MACY T 372.30 Conjunctivitis 03/17/2008 LAINA SHERMAN MD 372.30 Conjunctivitis 03/17/2008 372.30 Conjunctivitis 03/17/2008 BELKIS MG MACY T 372.30 Conjunctivitis 03/17/2008 372.30 Conjunctivitis 03/17/2008 372.30 Conjunctivitis 03/17/2008 372.30 Conjunctivitis 03/17/2008 BELKIS MG MACY T 372.30 Conjunctivitis 03/17/2008 BELKIS MG MACY T 372.30 Conjunctivitis 03/17/2008 BELKIS MG MACY T 372.30 Conjunctivitis 03/17/2008 BELKIS MG MACY T 372.30 Conjunctivitis 03/17/2008 MACY TAMAYO APRN T 372.30 Conjunctivitis 03/17/2008 MACY TAMAYO APRN T 372.30 Conjunctivitis 03/17/2008 MACY TAMAYO APRN T 372.30 Conjunctivitis 03/17/2008 MACY TAMAYO APRN T 372.30 Conjunctivitis 03/17/2008 SHERRIE BLACKBURN MD 372.30 Conjunctivitis 03/17/2008 SHERRIE BLACKBURN MD 372.30 Conjunctivitis 03/17/2008 MACY TAAMYO APRN T 372.30 Conjunctivitis 03/17/2008 MAXWELL PHD, MARLENE Dickey 372.30 Conjunctivitis 03/17/2008 MAXWELL PHD, MARLENE Dickey 372.30 Conjunctivitis 03/17/2008 BERE SAEZ, SHERRIE 372.30 Conjunctivitis 03/17/2008 BERE SAEZ, SHERRIE 372.30 Conjunctivitis 03/17/2008 DHARMESH APRN, MOISES A 372.30 Conjunctivitis 03/17/2008 MACY TAMAYO APRN T 372.30 Conjunctivitis 03/17/2008 RACHELLE BINDERY MANAGER, YUKI 372.30 Conjunctivitis 03/17/2008 MACY TAMAYO APRN T 372.30 Conjunctivitis 03/17/2008 BERE SAEZ, SHERRIE 372.30 Conjunctivitis 03/17/2008 RACHELLE BINDERY MANAGER, YUKI 372.30 Conjunctivitis 03/17/2008 MAXWELL PHD, MARLENE Dickey 372.30 Conjunctivitis 03/17/2008 RACHELLE BINDERY MANAGER, YUKI 372.30 Conjunctivitis 03/17/2008 MACY TAMAYO APRN T 372.30 Conjunctivitis 03/17/2008 MACY TAMAYO APRN T 372.30 Conjunctivitis 03/17/2008 RACHELLE BINDERY MANAGER, YUKI 372.30 Conjunctivitis 06/01/2009 LINDSAY STRONG DO 493.92 Asthma (acute) Exacerbation 06/01/2009 493.92 Asthma (acute ) Exacerbation 06/01/2009 493.92 Asthma (acute ) Exacerbation 06/01/2009 MACY TAMAYO APRN 493.92 Asthma (acute) Exacerbation 06/01/2009 MACY TAMYAO APRN 493.92 Asthma (acute) Exacerbation 06/01/2009 LAINA SHERMAN MD 493.92 Asthma (acute) Exacerbation 06/01/2009 493.92 Asthma (acute ) Exacerbation 06/01/2009 MACY TAMAYO APRN 493.92 Asthma (acute) Exacerbation 06/01/2009 493.92 Asthma (acute ) Exacerbation 06/01/2009 493.92 Asthma (acute ) Exacerbation 06/01/2009 493.92 Asthma (acute ) Exacerbation 06/01/2009 MACY TAMAYO APRN 493.92 Asthma (acute) Exacerbation 06/01/2009 MACY TAMAYO APRN 493.92 Asthma (acute) Exacerbation 06/01/2009 MACY TAMAYO APRN 493.92 Asthma (acute) Exacerbation 06/01/2009 MACY TAMAYO APRN 493.92 Asthma (acute) Exacerbation 06/01/2009 MACY TAMAYO APRN T 493.92 Asthma (acute) Exacerbation 06/01/2009 MACY TAMAYO APRN T 493.92 Asthma (acute) Exacerbation 06/01/2009 MACY TAMAYO APRN T 493.92 Asthma (acute) Exacerbation 06/01/2009 MACY TAMAYO APRN 493.92 Asthma (acute) Exacerbation 06/01/2009 SHERRIE BLACKBURN MD 493.92 Asthma (acute) Exacerbation 06/01/2009 SHERRIE BLACKBURN MD 493.92 Asthma (acute) Exacerbation 06/01/2009 MACY TAMAYO APRN 493.92 Asthma (acute) Exacerbation 06/01/2009 MAXWELL PHD, MARLENE Dickey 493.92 Asthma (acute) Exacerbation 06/01/2009 MAXWELL NIETO, MARLENE Dickey 493.92 Asthma (acute) Exacerbation 06/01/2009 SHERRIE BLACKBURN MD 493.92 Asthma (acute) Exacerbation 06/01/2009 SHERRIE BLACKBURN MD 493.92 Asthma (acute) Exacerbation 06/01/2009 MOISES BARROSO APRN 493.92 Asthma (acute) Exacerbation 06/01/2009 MACY TAMAYO APRN 493.92 Asthma (acute) Exacerbation 06/01/2009 YUKI BUSH APRN 493.92 Asthma (acute) Exacerbation 06/01/2009 MACY TAMAYO APRN 493.92 Asthma (acute) Exacerbation 06/01/2009 SHERRIE BLACKBURN MD 493.92 Asthma (acute) Exacerbation 06/01/2009 YUKI BUSH APRN 493.92 Asthma (acute) Exacerbation 06/01/2009 MAXWELL NIETO, MARLENE Dickey 493.92 Asthma (acute) Exacerbation 06/01/2009 RACHELLE MG YUKI 493.92 Asthma (acute) Exacerbation 06/01/2009 MACY TAMAYO APRN T 493.92 Asthma (acute) Exacerbation 06/01/2009 MACY TAMAYO APRN 493.92 Asthma (acute) Exacerbation 06/01/2009 YARY BUSH APRNETTE 493.92 Asthma (acute) Exacerbation 07/25/2009 LINDSAY STRONG DO 380.10 Otitis Externa 07/25/2009 LINDSAY STRONG DO 380.4 Cerumen Impaction 07/25/2009 LINDSAY STRONG DO 692.9 Dermatitis 07/25/2009 380.10 Otitis Externa 07/25/2009 380.4 Cerumen Impaction 07/25/2009 692.9 Dermatitis 07/25/2009 380.10 Otitis Externa 07/25/2009 380.4 Cerumen Impaction 07/25/2009 692.9 Dermatitis 07/25/2009 MACY TAMAYO APRN 380.10 Otitis Externa 07/25/2009 MACY TAMAYO APRN 380.4 Cerumen Impaction 07/25/2009 MACY TAMAYO APRN 692.9 Dermatitis 07/25/2009 MACY TAMAYO APRN 380.10 Otitis Externa 07/25/2009 MACY TAMAYO APRN 380.4 Cerumen Impaction 07/25/2009 MACY TAMAYO APRN 692.9 Dermatitis 07/25/2009 LIZETH SAEZ, LAINA Christianson 380.10 Otitis Externa 07/25/2009 LIZETH SAEZ, LAINA Christianson 380.4 Cerumen Impaction 07/25/2009 LIZETH SAEZ, LAINA Christianson 692.9 Dermatitis 07/25/2009 380.10 Otitis Externa 07/25/2009 380.4 Cerumen Impaction 07/25/2009 692.9 Dermatitis 07/25/2009 MACY TAMAYO APRN 380.10 Otitis Externa 07/25/2009 MACY TAMAYO APRN 380.4 Cerumen Impaction 07/25/2009 MACY TAMAYO APRN 692.9 Dermatitis 07/25/2009 380.10 Otitis Externa 07/25/2009 380.4 Cerumen Impaction 07/25/2009 692.9 Dermatitis 07/25/2009 380.10 Otitis Externa 07/25/2009 380.4 Cerumen Impaction 07/25/2009 692.9 Dermatitis 07/25/2009 380.10 Otitis Externa 07/25/2009 380.4 Cerumen Impaction 07/25/2009 692.9 Dermatitis 07/25/2009 MACY TAMAYO APRN 380.10 Otitis Externa 07/25/2009 MACY TAMAYO APRN 380.4 Cerumen Impaction 07/25/2009 MACY TAMAYO APRN 692.9 Dermatitis 07/25/2009 MACY TAMAYO APRN 380.10 Otitis Externa 07/25/2009 MACY TAMAYO APRN 380.4 Cerumen Impaction 07/25/2009 MACY TAMAYO APRN T 692.9 Dermatitis 07/25/2009 BELKIS MG, MACY T 380.10 Otitis Externa 07/25/2009 BELKIS KROOMAN, MACY T 380.4 Cerumen Impaction 07/25/2009 BELKIS BINDERY MANAGER, MACY T 692.9 Dermatitis 07/25/2009 BELKIS KOROMAN, MACY T 380.10 Otitis Externa 07/25/2009 BELKIS KOROMAN, MACY T 380.4 Cerumen Impaction 07/25/2009 BELKIS KOROMAN, MACY T 692.9 Dermatitis 07/25/2009 BELKIS BINDERY MANAGER, MACY T 380.10 Otitis Externa 07/25/2009 BELKIS KOROMAN, MACY T 380.4 Cerumen Impaction 07/25/2009 MACY TAMAYO APRN T 692.9 Dermatitis 07/25/2009 BELKIS MG, MACY T 380.10 Otitis Externa 07/25/2009 MACY TAMAYO APRN T 380.4 Cerumen Impaction 07/25/2009 MACY TAMAYO APRN T 692.9 Dermatitis 07/25/2009 MACY TAMAYO APRN T 380.10 Otitis Externa 07/25/2009 MACY TAMAYO APRN T 380.4 Cerumen Impaction 07/25/2009 MACY TAMAYO APRN T 692.9 Dermatitis 07/25/2009 MACY TAMAYO APRN T 380.10 Otitis Externa 07/25/2009 MACY TAMAYO APRN T 380.4 Cerumen Impaction 07/25/2009 MACY TAMAYO APRN T 692.9 Dermatitis 07/25/2009 SHERRIE BLACKBURN MD 380.10 Otitis Externa 07/25/2009 SHERRIE BLACKBURN MD 380.4 Cerumen Impaction 07/25/2009 SHERRIE BLACKBURN MD2.9 Dermatitis 07/25/2009 SHERRIE BLACKBURN MD 380.10 Otitis Externa 07/25/2009 SHERRIE BLACKBURN MD 380.4 Cerumen Impaction 07/25/2009 SHERRIE BLACKBURN MD.9 Dermatitis 07/25/2009 MACY TAMAYO APRN T 380.10 Otitis Externa 07/25/2009 MACY TAMAYO APRN T 380.4 Cerumen Impaction 07/25/2009 MACY TAMAYO APRN T 692.9 Dermatitis 07/25/2009 MAXWELL NIETO, MARLENE Dickey 380.10 Otitis Externa 07/25/2009 MAXWELL PHD, MARLENE Dickey 380.4 Cerumen Impaction 07/25/2009 MAXWELL PHD, MARLENE Dickey 692.9 Dermatitis 07/25/2009 MAXWELL PHD, MARLENE Dickey 380.10 Otitis Externa 07/25/2009 MAXWELL PHD, MARLENE Dickey 380.4 Cerumen Impaction 07/25/2009 MAXWELL PHD, MARLENE Dickey 692.9 Dermatitis 07/25/2009 BERE SAEZ, SHERRIE 380.10 Otitis Externa 07/25/2009 BERE SAEZ, SHERRIE 380.4 Cerumen Impaction 07/25/2009 BERE SAEZ, SHERRIE 692.9 Dermatitis 07/25/2009 BERE SAEZ, SHERRIE 380.10 Otitis Externa 07/25/2009 BERE SAEZ, SHERRIE 380.4 Cerumen Impaction 07/25/2009 BERE SAEZ, SHERRIE 692.9 Dermatitis 07/25/2009 DHARMESH MG, MOISES A 380.10 Otitis Externa 07/25/2009 DHARMESH MG, MOISES A 380.4 Cerumen Impaction 07/25/2009 JASON BARROSO APRNIDI A 692.9 Dermatitis 07/25/2009 MACY TAMAYO APRN 380.10 Otitis Externa 07/25/2009 MACY TAMAYO APRN 380.4 Cerumen Impaction 07/25/2009 MACY TAMAYO APRN 692.9 Dermatitis 07/25/2009 RACHELLE BINDERY MANAGER, YUKI 380.10 Otitis Externa 07/25/2009 RACHELLE MG, YUKI 380.4 Cerumen Impaction 07/25/2009 RACHELLE MG YUKI 692.9 Dermatitis 07/25/2009 MACY TAMAYO APRN T 380.10 Otitis Externa 07/25/2009 MACY TAMAYO APRN 380.4 Cerumen Impaction 07/25/2009 MACY TAMAYO APRN 692.9 Dermatitis 07/25/2009 SHERRIE BLACKBURN MD 380.10 Otitis Externa 07/25/2009 BERE SAEZ, SHERRIE 380.4 Cerumen Impaction 07/25/2009 BERE SAEZ, SHERRIE 692.9 Dermatitis 07/25/2009 RACHELLE BINDERY MANAGER, YUKI 380.10 Otitis Externa 07/25/2009 RACHELLE MG, YUKI 380.4 Cerumen Impaction 07/25/2009 RACHELLE MG, YUKI 692.9 Dermatitis 07/25/2009 MAXWELL NIETO, MARLENE Dickey 380.10 Otitis Externa 07/25/2009 MAXWELL NIETO, MARLENE Dickey 380.4 Cerumen Impaction 07/25/2009 MAXWELL NIETO, MARLENE Dickey 692.9 Dermatitis 07/25/2009 RACHELLETAMY MG, YUKI 380.10 Otitis Externa 07/25/2009 RACHELLEYARY MORELOS APRNETTE 380.4 Cerumen Impaction 07/25/2009 YUKI BUSH APRN 692.9 Dermatitis 07/25/2009 MACY TAMAYO APRN 380.10 Otitis Externa 07/25/2009 MACY TAMAYO APRN 380.4 Cerumen Impaction 07/25/2009 MACY TAMAYO APRN 692.9 Dermatitis 07/25/2009 MACY TAMAYO APRN 380.10 Otitis Externa 07/25/2009 MACY TAMAYO APRN 380.4 Cerumen Impaction 07/25/2009 MACY TAMAYO APRN 692.9 Dermatitis 07/25/2009 RACHELLE MG YUKI 380.10 Otitis Externa 07/25/2009 YARY BUSH APRNETTE 380.4 Cerumen Impaction 07/25/2009 YUKI BUSH APRN 692.9 Dermatitis 07/27/2009 LINDSAY STRONG DO 691.8 Dermatitis Atopic Eczema 07/27/2009 691.8 Dermatitis Atopic Eczema 07/27/2009 691.8 Dermatitis Atopic Eczema 07/27/2009 MACY TAMAYO APRN 691.8 Dermatitis Atopic Eczema 07/27/2009 MACY TAMAYO APRN 691.8 Dermatitis Atopic Eczema 07/27/2009 LAINA SHERMAN MD 691.8 Dermatitis Atopic Eczema 07/27/2009 691.8 Dermatitis Atopic Eczema 07/27/2009 MACY TAMAYO APRN 691.8 Dermatitis Atopic Eczema 07/27/2009 691.8 Dermatitis Atopic Eczema 07/27/2009 691.8 Dermatitis Atopic Eczema 07/27/2009 691.8 Dermatitis Atopic Eczema 07/27/2009 MACY TAMAYO APRN 691.8 Dermatitis Atopic Eczema 07/27/2009 MACY TAMAYO APRN 691.8 Dermatitis Atopic Eczema 07/27/2009 MACY TAMAYO APRN 691.8 Dermatitis Atopic Eczema 07/27/2009 MACY TAMAYO APRN T 691.8 Dermatitis Atopic Eczema 07/27/2009 MACY TAMAYO APRN 691.8 Dermatitis Atopic Eczema 07/27/2009 MACY TAMAYO APRN 691.8 Dermatitis Atopic Eczema 07/27/2009 MACY TAMAYO APRN 691.8 Dermatitis Atopic Eczema 07/27/2009 MACY TAMAYO APRN 691.8 Dermatitis Atopic Eczema 07/27/2009 SHERRIE BLACKBURN MD 691.8 Dermatitis Atopic Eczema 07/27/2009 BERE SAEZ, SHERRIE 691.8 Dermatitis Atopic Eczema 07/27/2009 MACY TAMAYO APRN 691.8 Dermatitis Atopic Eczema 07/27/2009 MAXWELL PHD, MARLENE Dickey 691.8 Dermatitis Atopic Eczema 07/27/2009 MAXWELL PHD, MARLENE Dickey 691.8 Dermatitis Atopic Eczema 07/27/2009 BERE SAEZ, SHERRIE 691.8 Dermatitis Atopic Eczema 07/27/2009 SHERRIE BLACKBURN MD 691.8 Dermatitis Atopic Eczema 07/27/2009 MOISES BARROSO APRN 691.8 Dermatitis Atopic Eczema 07/27/2009 MACY TAMAYO APRN 691.8 Dermatitis Atopic Eczema 07/27/2009 RACHELLE MG, YUKI 691.8 Dermatitis Atopic Eczema 07/27/2009 MACY TAMAYO APRN 691.8 Dermatitis Atopic Eczema 07/27/2009 SHERRIE BLACKBURN MD 691.8 Dermatitis Atopic Eczema 07/27/2009 RACHELLE MG, YUKI 691.8 Dermatitis Atopic Eczema 07/27/2009 MAXWELL NIETO, MARLENE Dickey 691.8 Dermatitis Atopic Eczema 07/27/2009 RACHELLE MG, YUKI 691.8 Dermatitis Atopic Eczema 07/27/2009 MACY TAMAYO APRN 691.8 Dermatitis Atopic Eczema 07/27/2009 MACY TAMAYO APRN 691.8 Dermatitis Atopic Eczema 07/27/2009 YUKI BUSH APRN 691.8 Dermatitis Atopic Eczema 08/26/2010 LINDSAY STRONG DO 719.46 Knee Pain 08/26/2010 LINDSAY STRONG DO 789.7 Colic 08/26/2010 719.46 Knee Pain 08/26/2010 789.7 Colic 08/26/2010 719.46 Knee Pain 08/26/2010 789.7 Colic 08/26/2010 MACY TAMAYO APRN T 719.46 Knee Pain 08/26/2010 MACY TAMAYO APRN T 789.7 Colic 08/26/2010 MACY TAMAYO APRN T 719.46 Knee Pain 08/26/2010 MACY TAMAYO APRN T 789.7 Colic 08/26/2010 LAINA SHERMAN MD 719.46 Knee Pain 08/26/2010 LAINA SHERMAN MD 789.7 Colic 08/26/2010 719.46 Knee Pain 08/26/2010 789.7 Colic 08/26/2010 MACY TAMAYO APRN T 719.46 Knee Pain 08/26/2010 MACY TAMAYO APRN T 789.7 Colic 08/26/2010 719.46 Knee Pain 08/26/2010 789.7 Colic 08/26/2010 719.46 Knee Pain 08/26/2010 789.7 Colic 08/26/2010 719.46 Knee Pain 08/26/2010 789.7 Colic 08/26/2010 MACY TAMAYO APRN T 719.46 Knee Pain 08/26/2010 MACY TAMAYO APRN T 789.7 Colic 08/26/2010 MACY TAMAYO APRN T 719.46 Knee Pain 08/26/2010 MACY TAMAYO APRN T 789.7 Colic 08/26/2010 MACY TAMAYO APRN T 719.46 Knee Pain 08/26/2010 MACY TAMAYO APRN T 789.7 Colic 08/26/2010 MACY TAMAYO APRN T 719.46 Knee Pain 08/26/2010 MACY TAMAYO APRN T 789.7 Colic 08/26/2010 MACY TAMAYO APRN T 719.46 Knee Pain 08/26/2010 MACY TAMAYO APRN T 789.7 Colic 08/26/2010 MACY TAMAYO APRN T 719.46 Knee Pain 08/26/2010 MACY TAMAYO APRN T 789.7 Colic 08/26/2010 MACY TAMAYO APRN T 719.46 Knee Pain 08/26/2010 MACY TAMAYO APRN T 789.7 Colic 08/26/2010 MACY TAMAYO APRN T 719.46 Knee Pain 08/26/2010 MACY TAMAYO APRN 789.7 Colic 08/26/2010 BERE SAEZ, SHERRIE 719.46 Knee Pain 08/26/2010 BERE SAEZ, SHERRIE 789.7 Colic 08/26/2010 BERE SAEZ, SHERRIE 719.46 Knee Pain 08/26/2010 BERE SAEZ, SHERRIE 789.7 Colic 08/26/2010 MACY TAMAYO APRN 719.46 Knee Pain 08/26/2010 MACY TAMAYO APRN 789.7 Colic 08/26/2010 MAXWELL PHD, MARLENE Dickey 719.46 Knee Pain 08/26/2010 MAXWELL PHD, MARLENE Dickey 789.7 Colic 08/26/2010 MAXWELL PHD, MARLENE Dickey 719.46 Knee Pain 08/26/2010 MAXWELL PHD, MARLENE Dickey 789.7 Colic 08/26/2010 BERE SAEZ, SHERRIE 719.46 Knee Pain 08/26/2010 SHERRIE BLACKBURN MD 789.7 Colic 08/26/2010 BERE SAEZ, SHERRIE 719.46 Knee Pain 08/26/2010 SHERRIE BLACKBURN MD 789.7 Colic 08/26/2010 DHARMESHMOISES Muñiz APRN A 719.46 Knee Pain 08/26/2010 MOISES BARROSO APRN A 789.7 Colic 08/26/2010 MACY TAMAYO APRN 719.46 Knee Pain 08/26/2010 MACY TAMAYO APRN 789.7 Colic 08/26/2010 RACHELLE BINDERY MANAGER, YUKI 719.46 Knee Pain 08/26/2010 RACHELLE MG, YUKI 789.7 Colic 08/26/2010 MACY TAMAYO APRN 719.46 Knee Pain 08/26/2010 MACY TAMAYO APRN 789.7 Colic 08/26/2010 SHERRIE BLACKBURN MD 719.46 Knee Pain 08/26/2010 SHERRIE BLACKBURN MD.7 Colic 08/26/2010 RACHELLE BINDERY MANAGER, YUKI 719.46 Knee Pain 08/26/2010 RACHELLE BINDERY MANAGER, YUKI 789.7 Colic 08/26/2010 MAXWELL PHD, MARLENE Dickey 719.46 Knee Pain 08/26/2010 MAXWELL PHD, MARLENE Dickey 789.7 Colic 08/26/2010 RACHELLE BINDERY MANAGER, YUKI 719.46 Knee Pain 08/26/2010 RACHELLE BINDERY MANAGER, YUKI 789.7 Colic 08/26/2010 MACY TAMAYO APRN 719.46 Knee Pain 08/26/2010 MACY TAMAYO APRN 789.7 Colic 08/26/2010 MACY TAMAYO APRN 719.46 Knee Pain 08/26/2010 MACY TAMAYO APRN 789.7 Colic 08/26/2010 RACHELLE BINDERY MANAGERYARY MuñizYUKI 719.46 Knee Pain 08/26/2010 RACHELLEYARY MORELOS APRNETTE 789.7 Colic 11/12/2010 Ot 401.9 HYPERTENSION NOS 02/23/2011 LINDSAY STRONG DO 250.02 DIABETES II UNCONTROLLED (UNCOMPLICATED) 02/23/2011 LINDSAY STRONG DO 278.01 OBESITY, MORBID (BMI >40) 02/23/2011 LINDSAY STRONG DO 401.9 HYPERTENSION (SYSTEMIC) 02/23/2011 250.02 DIABETES II UNCONTROLLED (UNCOMPLICATED) 02/23/2011 278.01 OBESITY, MORBID (BMI >40) 02/23/2011 401.9 HYPERTENSION ( SYSTEMIC) 02/23/2011 250.02 DIABETES II UNCONTROLLED (UNCOMPLICATED) 02/23/2011 278.01 OBESITY, MORBID (BMI >40) 02/23/2011 401.9 HYPERTENSION ( SYSTEMIC) 02/23/2011 MACY TAMAYO APRN 250.02 DIABETES II UNCONTROLLED (UNCOMPLICATED) 02/23/2011 MACY TAMAYO APRN 278.01 OBESITY, MORBID (BMI >40) 02/23/2011 MACY TAMAYO APRN 401.9 HYPERTENSION (SYSTEMIC) 02/23/2011 MACY TAMAYO APRN 250.02 DIABETES II UNCONTROLLED (UNCOMPLICATED) 02/23/2011 MACY TAMAYO APRN 278.01 OBESITY, MORBID (BMI >40) 02/23/2011 MACY TAMAYO APRN 401.9 HYPERTENSION (SYSTEMIC) 02/23/2011 LAINA SHERMAN MD 250.02 DIABETES II UNCONTROLLED (UNCOMPLICATED) 02/23/2011 LAINA SHERMAN MD 278.01 OBESITY, MORBID (BMI >40) 02/23/2011 LAINA SHERMAN MD 401.9 HYPERTENSION (SYSTEMIC) 02/23/2011 250.02 DIABETES II UNCONTROLLED (UNCOMPLICATED) 02/23/2011 278.01 OBESITY, MORBID (BMI >40) 02/23/2011 401.9 HYPERTENSION ( SYSTEMIC) 02/23/2011 MACY TAMAYO APRN 250.02 DIABETES II UNCONTROLLED (UNCOMPLICATED) 02/23/2011 MACY TAMAYO APRN 278.01 OBESITY, MORBID (BMI >40) 02/23/2011 MACY TAMAYO APRN 401.9 HYPERTENSION (SYSTEMIC) 02/23/2011 250.02 DIABETES II UNCONTROLLED (UNCOMPLICATED) 02/23/2011 278.01 OBESITY, MORBID (BMI >40) 02/23/2011 401.9 HYPERTENSION ( SYSTEMIC) 02/23/2011 250.02 DIABETES II UNCONTROLLED (UNCOMPLICATED) 02/23/2011 278.01 OBESITY, MORBID (BMI >40) 02/23/2011 401.9 HYPERTENSION ( SYSTEMIC) 02/23/2011 250.02 DIABETES II UNCONTROLLED (UNCOMPLICATED) 02/23/2011 278.01 OBESITY, MORBID (BMI >40) 02/23/2011 401.9 HYPERTENSION ( SYSTEMIC) 02/23/2011 MACY TAMAYO APRN 250.02 DIABETES II UNCONTROLLED (UNCOMPLICATED) 02/23/2011 MACY TAMAYO APRN 278.01 OBESITY, MORBID (BMI >40) 02/23/2011 MACY TAMAYO APRN 401.9 HYPERTENSION (SYSTEMIC) 02/23/2011 MACY TAMAYO APRN 250.02 DIABETES II UNCONTROLLED (UNCOMPLICATED) 02/23/2011 MACY TAMAYO APRN 278.01 OBESITY, MORBID (BMI >40) 02/23/2011 MACY TAMAYO APRN 401.9 HYPERTENSION (SYSTEMIC) 02/23/2011 MACY TAMAYO APRN 250.02 DIABETES II UNCONTROLLED (UNCOMPLICATED) 02/23/2011 MACY TAMAYO APRN 278.01 OBESITY, MORBID (BMI >40) 02/23/2011 MACY TAMAYO APRN 401.9 HYPERTENSION (SYSTEMIC) 02/23/2011 MACY TAMAYO APRN 250.02 DIABETES II UNCONTROLLED (UNCOMPLICATED) 02/23/2011 MACY TAMAYO APRN 278.01 OBESITY, MORBID (BMI >40) 02/23/2011 MACY TAMAYO APRN 401.9 HYPERTENSION (SYSTEMIC) 02/23/2011 MACY TAMAYO APRN 250.02 DIABETES II UNCONTROLLED (UNCOMPLICATED) 02/23/2011 MACY TAMAYO APRN 278.01 OBESITY, MORBID (BMI >40) 02/23/2011 MACY TAMAYO APRN 401.9 HYPERTENSION (SYSTEMIC) 02/23/2011 MACY TAMAYO APRN T 250.02 DIABETES II UNCONTROLLED (UNCOMPLICATED) 02/23/2011 MACY TAMAYO APRN T 278.01 OBESITY, MORBID (BMI >40) 02/23/2011 MACY TAMAYO APRN T 401.9 HYPERTENSION (SYSTEMIC) 02/23/2011 MACY TMAAYO APRN T 250.02 DIABETES II UNCONTROLLED (UNCOMPLICATED) 02/23/2011 MACY TAMAYO APRN T 278.01 OBESITY, MORBID (BMI >40) 02/23/2011 MACY TAMAYO APRN 401.9 HYPERTENSION (SYSTEMIC) 02/23/2011 MACY TAMAYO APRN T 250.02 DIABETES II UNCONTROLLED (UNCOMPLICATED) 02/23/2011 MACY TAMAYO APRN T 278.01 OBESITY, MORBID (BMI >40) 02/23/2011 MACY TAMAYO APRN 401.9 HYPERTENSION (SYSTEMIC) 02/23/2011 SHERRIE BLACKBURN MD 250.02 DIABETES II UNCONTROLLED (UNCOMPLICATED) 02/23/2011 SHERRIE BLACKBURN MD 278.01 OBESITY, MORBID (BMI >40) 02/23/2011 SHERRIE BLACKBURN MD 401.9 HYPERTENSION (SYSTEMIC) 02/23/2011 SHERRIE BLACKBURN MD 250.02 DIABETES II UNCONTROLLED (UNCOMPLICATED) 02/23/2011 SHERRIE BLACKBURN MD 278.01 OBESITY, MORBID (BMI >40) 02/23/2011 SHERRIE BLACKBURN MD 401.9 HYPERTENSION (SYSTEMIC) 02/23/2011 MACY TAMAYO APRN 250.02 DIABETES II UNCONTROLLED (UNCOMPLICATED) 02/23/2011 MACY TAMAYO APRN 278.01 OBESITY, MORBID (BMI >40) 02/23/2011 MACY TAMAYO APRN 401.9 HYPERTENSION (SYSTEMIC) 02/23/2011 MARLENE ARREOLA PHD 250.02 DIABETES II UNCONTROLLED (UNCOMPLICATED) 02/23/2011 MARLENE ARREOLA PHD 278.01 OBESITY, MORBID (BMI >40) 02/23/2011 MARLENE ARREOLA PHD 401.9 HYPERTENSION (SYSTEMIC) 02/23/2011 MARLENE ARREOLA PHD 250.02 DIABETES II UNCONTROLLED (UNCOMPLICATED) 02/23/2011 MARLENE ARREOLA PHD 278.01 OBESITY, MORBID (BMI >40) 02/23/2011 MARLENE ARREOLA PHD 401.9 HYPERTENSION (SYSTEMIC) 02/23/2011 SHERRIE BLACKBURN MD 250.02 DIABETES II UNCONTROLLED (UNCOMPLICATED) 02/23/2011 SHERRIE BLACKBURN MD 278.01 OBESITY, MORBID (BMI >40) 02/23/2011 SHERRIE BLACKBURN MD 401.9 HYPERTENSION (SYSTEMIC) 02/23/2011 SHERRIE BLACKBURN MD 250.02 DIABETES II UNCONTROLLED (UNCOMPLICATED) 02/23/2011 SHERRIE BLACKBURN MD 278.01 OBESITY, MORBID (BMI >40) 02/23/2011 SHERRIE BLACKBURN MD 401.9 HYPERTENSION (SYSTEMIC) 02/23/2011 MOISES BARROSO APRN A 250.02 DIABETES II UNCONTROLLED (UNCOMPLICATED) 02/23/2011 MOISES BARROSO APRN A 278.01 OBESITY, MORBID (BMI >40) 02/23/2011 MOISES BARROSO APRN A 401.9 HYPERTENSION (SYSTEMIC) 02/23/2011 MACY TAMAYO APRN 250.02 DIABETES II UNCONTROLLED (UNCOMPLICATED) 02/23/2011 MACY TAMAYO APRN 278.01 OBESITY, MORBID (BMI >40) 02/23/2011 MACY TAMAYO APRN 401.9 HYPERTENSION (SYSTEMIC) 02/23/2011 YUKI BUSH APRN 250.02 DIABETES II UNCONTROLLED (UNCOMPLICATED) 02/23/2011 YUKI BUSH APRN 278.01 OBESITY, MORBID (BMI >40) 02/23/2011 YUKI BUSH APRN 401.9 HYPERTENSION (SYSTEMIC) 02/23/2011 MACY TAMAYO APRN 250.02 DIABETES II UNCONTROLLED (UNCOMPLICATED) 02/23/2011 MACY TAMAYO APRN 278.01 OBESITY, MORBID (BMI >40) 02/23/2011 MACY TAMAYO APRN 401.9 HYPERTENSION (SYSTEMIC) 02/23/2011 SHERRIE BLACKBURN MD 250.02 DIABETES II UNCONTROLLED (UNCOMPLICATED) 02/23/2011 SHERRIE BLACKBURN MD 278.01 OBESITY, MORBID (BMI >40) 02/23/2011 SHERRIE BLACKBURN MD 401.9 HYPERTENSION (SYSTEMIC) 02/23/2011 YUKI BUSH APRN 250.02 DIABETES II UNCONTROLLED (UNCOMPLICATED) 02/23/2011 RACHELLE MG YUKI 278.01 OBESITY, MORBID (BMI >40) 02/23/2011 RACHELLE MG YUKI 401.9 HYPERTENSION (SYSTEMIC) 02/23/2011 MAXWELL NIETO, MARLENE Dickey 250.02 DIABETES II UNCONTROLLED (UNCOMPLICATED) 02/23/2011 MARLENE ARREOLA PHD 278.01 OBESITY, MORBID (BMI >40) 02/23/2011 MARLENE ARREOLA PHD 401.9 HYPERTENSION (SYSTEMIC) 02/23/2011 YUKI BUSH APRN 250.02 DIABETES II UNCONTROLLED (UNCOMPLICATED) 02/23/2011 YUKI BUSH APRN 278.01 OBESITY, MORBID (BMI >40) 02/23/2011 YUKI BUSH APRN 401.9 HYPERTENSION (SYSTEMIC) 02/23/2011 MCAY TAMAYO APRN 250.02 DIABETES II UNCONTROLLED (UNCOMPLICATED) 02/23/2011 MACY TAMAYO APRN 278.01 OBESITY, MORBID (BMI >40) 02/23/2011 MACY TAMAYO APRN 401.9 HYPERTENSION (SYSTEMIC) 02/23/2011 MACY TAMAYO APRN 250.02 DIABETES II UNCONTROLLED (UNCOMPLICATED) 02/23/2011 MACY TAMAYO APRN 278.01 OBESITY, MORBID (BMI >40) 02/23/2011 MACY TAMAYO APRN 401.9 HYPERTENSION (SYSTEMIC) 02/23/2011 YUKI BUSH APRN 250.02 DIABETES II UNCONTROLLED (UNCOMPLICATED) 02/23/2011 YUKI BUSH APRN 278.01 OBESITY, MORBID (BMI >40) 02/23/2011 YUKI BUSH APRN 401.9 HYPERTENSION (SYSTEMIC) 03/02/2011 LINDSAY STRONG DO 300.00 ANXIETY UNSPEC 03/02/2011 300.00 ANXIETY UNSPEC 03/02/2011 300.00 ANXIETY UNSPEC 03/02/2011 MACY TAMAYO APRN 300.00 ANXIETY UNSPEC 03/02/2011 MACY TAMAYO APRN 300.00 ANXIETY UNSPEC 03/02/2011 LAINA SHERMAN MD 300.00 ANXIETY UNSPEC 03/02/2011 300.00 ANXIETY UNSPEC 03/02/2011 MACY TAMAYO APRN 300.00 ANXIETY UNSPEC 03/02/2011 300.00 ANXIETY UNSPEC 03/02/2011 300.00 ANXIETY UNSPEC 03/02/2011 300.00 ANXIETY UNSPEC 03/02/2011 MACY TAMAYO APRN 300.00 ANXIETY UNSPEC 03/02/2011 MACY TAMAYO APRN 300.00 ANXIETY UNSPEC 03/02/2011 MACY TAMAYO APRN 300.00 ANXIETY UNSPEC 03/02/2011 MACY TAMAYO APRN 300.00 ANXIETY UNSPEC 03/02/2011 MACY TAMAYO APRN 300.00 ANXIETY UNSPEC 03/02/2011 MACY TAMAYO APRN 300.00 ANXIETY UNSPEC 03/02/2011 MACY TAMAYO APRN 300.00 ANXIETY UNSPEC 03/02/2011 MACY TAMAYO APRN 300.00 ANXIETY UNSPEC 03/02/2011 SHERRIE BLACKBURN MD 300.00 ANXIETY UNSPEC 03/02/2011 SHERRIE BLACKBURN MD 300.00 ANXIETY UNSPEC 03/02/2011 MACY TAMAYO APRN 300.00 ANXIETY UNSPEC 03/02/2011 MAXWELL NIETO, MARLENE Dickey 300.00 ANXIETY UNSPEC 03/02/2011 MAXWELL NIETO, MARLENE Dickey 300.00 ANXIETY UNSPEC 03/02/2011 SHERRIE BLACKBURN MD 300.00 ANXIETY UNSPEC 03/02/2011 SHERRIE BLACKBURN MD 300.00 ANXIETY UNSPEC 03/02/2011 MOISES BARROSO APRN 300.00 ANXIETY UNSPEC 03/02/2011 MACY TAMAYO APRN 300.00 ANXIETY UNSPEC 03/02/2011 YUKI BUSH APRN 300.00 ANXIETY UNSPEC 03/02/2011 MACY TAMAYO APRN 300.00 ANXIETY UNSPEC 03/02/2011 SHERRIE BLACKBURN MD 300.00 ANXIETY UNSPEC 03/02/2011 YUKI BUSH APRN 300.00 ANXIETY UNSPEC 03/02/2011 MAXWELL NIETO, MARLENE Dcikey 300.00 ANXIETY UNSPEC 03/02/2011 YUKI BUSH APRN 300.00 ANXIETY UNSPEC 03/02/2011 MACY TAMAYO APRN 300.00 ANXIETY UNSPEC 03/02/2011 MACY TAMAYO APRN 300.00 ANXIETY UNSPEC 03/02/2011 YUKI BUSH APRN 300.00 ANXIETY UNSPEC 05/11/2011 LINDSAY STRONG DO 250.00 DIABETES MELLITUS TYPE 2 05/11/2011 250.00 DIABETES MELLITUS TYPE 2 05/11/2011 250.00 DIABETES MELLITUS TYPE 2 05/11/2011 MACY TAMAYO APRN 250.00 DIABETES MELLITUS TYPE 2 05/11/2011 MACY TAMAYO APRN 250.00 DIABETES MELLITUS TYPE 2 05/11/2011 LAINA SHERMAN MD 250.00 DIABETES MELLITUS TYPE 2 05/11/2011 250.00 DIABETES MELLITUS TYPE 2 05/11/2011 MACY TAMAYO APRN 250.00 DIABETES MELLITUS TYPE 2 05/11/2011 250.00 DIABETES MELLITUS TYPE 2 05/11/2011 250.00 DIABETES MELLITUS TYPE 2 05/11/2011 250.00 DIABETES MELLITUS TYPE 2 05/11/2011 BELKIS MG, MACY T 250.00 DIABETES MELLITUS TYPE 2 05/11/2011 BELKIS MG, MACY T 250.00 DIABETES MELLITUS TYPE 2 05/11/2011 BELKIS KOROMAN, MACY T 250.00 DIABETES MELLITUS TYPE 2 05/11/2011 BELKIS KOROMAN, MACY T 250.00 DIABETES MELLITUS TYPE 2 05/11/2011 BELKIS KOROMAN, MACY T 250.00 DIABETES MELLITUS TYPE 2 05/11/2011 BELKIS KOROMAN, MACY T 250.00 DIABETES MELLITUS TYPE 2 05/11/2011 BELKIS KOROMAN, MACY T 250.00 DIABETES MELLITUS TYPE 2 05/11/2011 BELKIS MG, MACY T 250.00 DIABETES MELLITUS TYPE 2 05/11/2011 SHERRIE BLACKBURN MD 250.00 DIABETES MELLITUS TYPE 2 05/11/2011 SHERRIE BLACKBURN MD 250.00 DIABETES MELLITUS TYPE 2 05/11/2011 BELKIS MG, MACY T 250.00 DIABETES MELLITUS TYPE 2 05/11/2011 MAXWELL PHD, MARLENE Dickey 250.00 DIABETES MELLITUS TYPE 2 05/11/2011 MAXWELL PHD, MARLENE Dickey 250.00 DIABETES MELLITUS TYPE 2 05/11/2011 SHERRIE BLACKBURN MD 250.00 DIABETES MELLITUS TYPE 2 05/11/2011 SHERRIE BLACKBURN MD 250.00 DIABETES MELLITUS TYPE 2 05/11/2011 MOISES BARROSO APRN 250.00 DIABETES MELLITUS TYPE 2 05/11/2011 BELKIS MG, MACY T 250.00 DIABETES MELLITUS TYPE 2 05/11/2011 RACHELLE MG, YUKI 250.00 DIABETES MELLITUS TYPE 2 05/11/2011 BELKIS MG, MACY T 250.00 DIABETES MELLITUS TYPE 2 05/11/2011 SHERRIE BLACKBURN MD 250.00 DIABETES MELLITUS TYPE 2 05/11/2011 RACHELLE MG, YUKI 250.00 DIABETES MELLITUS TYPE 2 05/11/2011 MAXWELL NIETO, MARLENE Dickey 250.00 DIABETES MELLITUS TYPE 2 05/11/2011 RACHELLE MG, YUKI 250.00 DIABETES MELLITUS TYPE 2 05/11/2011 BELKIS MG, MACY T 250.00 DIABETES MELLITUS TYPE 2 05/11/2011 BELKIS MG, MACY T 250.00 DIABETES MELLITUS TYPE 2 05/11/2011 RACHELLE MG, YUKI 250.00 DIABETES MELLITUS TYPE 2 07/11/2011 STRONG DO, LINDSAY K 112.3 Candidiasis Of The Skin 07/11/2011 LIGIA VALLESLINDSAY Joey 787.02 Nausea 07/11/2011 112.3 Candidiasis Of The Skin 07/11/2011 787.02 Nausea 07/11/2011 112.3 Candidiasis Of The Skin 07/11/2011 787.02 Nausea 07/11/2011 MACY TAMAYO APRN 112.3 Candidiasis Of The Skin 07/11/2011 MACY TAMAYO APRN 787.02 Nausea 07/11/2011 MACY TAMAYO APRN 112.3 Candidiasis Of The Skin 07/11/2011 MACY TAMAYO APRN 787.02 Nausea 07/11/2011 LAINA SHERMAN MD 112.3 Candidiasis Of The Skin 07/11/2011 LAINA SHERMAN MD 787.02 Nausea 07/11/2011 112.3 Candidiasis Of The Skin 07/11/2011 787.02 Nausea 07/11/2011 MACY TAMAYO APRN 112.3 Candidiasis Of The Skin 07/11/2011 MACY TAMAYO APRN 787.02 Nausea 07/11/2011 112.3 Candidiasis Of The Skin 07/11/2011 787.02 Nausea 07/11/2011 112.3 Candidiasis Of The Skin 07/11/2011 787.02 Nausea 07/11/2011 112.3 Candidiasis Of The Skin 07/11/2011 787.02 Nausea 07/11/2011 MACY TAMAYO APRN 112.3 Candidiasis Of The Skin 07/11/2011 MACY TAMAYO APRN 787.02 Nausea 07/11/2011 MACY TAMAYO APRN 112.3 Candidiasis Of The Skin 07/11/2011 MACY TAMAYO APRN 787.02 Nausea 07/11/2011 MACY TAMAYO APRN 112.3 Candidiasis Of The Skin 07/11/2011 MACY TAMAYO APRN 787.02 Nausea 07/11/2011 MACY TAMAYO APRN 112.3 Candidiasis Of The Skin 07/11/2011 MACY TAMAYO APRN 787.02 Nausea 07/11/2011 MACY TAMAYO APRN 112.3 Candidiasis Of The Skin 07/11/2011 MACY TAMAYO APRN 787.02 Nausea 07/11/2011 MACY TAMAYO APRN 112.3 Candidiasis Of The Skin 07/11/2011 MACY TAMAYO APRN 787.02 Nausea 07/11/2011 MACY TAMAYO APRN 112.3 Candidiasis Of The Skin 07/11/2011 MACY TAMAYO APRN 787.02 Nausea 07/11/2011 MACY TAMAYO APRN 112.3 Candidiasis Of The Skin 07/11/2011 MACY TAMAYO APRN 787.02 Nausea 07/11/2011 SHERRIE BLACKBURN MD 112.3 Candidiasis Of The Skin 07/11/2011 SHERRIE BLACKBURN MD7.02 Nausea 07/11/2011 SHERRIE BLACKBURN MD 112.3 Candidiasis Of The Skin 07/11/2011 SHERRIE BLACKBURN MD7.02 Nausea 07/11/2011 MACY TAMAYO APRN 112.3 Candidiasis Of The Skin 07/11/2011 MACY TAMAYO APRN 787.02 Nausea 07/11/2011 MARLENE ARREOLA PHD 112.3 Candidiasis Of The Skin 07/11/2011 MARLENE ARREOLA PHD 787.02 Nausea 07/11/2011 MARLENE ARREOLA PHD 112.3 Candidiasis Of The Skin 07/11/2011 MARLENE ARREOLA PHD 787.02 Nausea 07/11/2011 SHERRIE BLACKBURN MD 112.3 Candidiasis Of The Skin 07/11/2011 SHERRIE BLACKBURN MD7.02 Nausea 07/11/2011 SHERRIE BLACKBURN MD 112.3 Candidiasis Of The Skin 07/11/2011 SHERRIE BLACKBURN MD7.02 Nausea 07/11/2011 MOISES BARROSO APRN 112.3 Candidiasis Of The Skin 07/11/2011 MOISES BARROSO APRN 787.02 Nausea 07/11/2011 MACY TAMAYO APRN 112.3 Candidiasis Of The Skin 07/11/2011 MACY TAMAYO APRN 787.02 Nausea 07/11/2011 YUKI BUSH APRN 112.3 Candidiasis Of The Skin 07/11/2011 YUKI BUSH APRN 787.02 Nausea 07/11/2011 MACY TAMAYO APRN 112.3 Candidiasis Of The Skin 07/11/2011 MACY TAMAYO APRN 787.02 Nausea 07/11/2011 SHERRIE BLACKBURN MD 112.3 Candidiasis Of The Skin 07/11/2011 SHERRIE BLACKBURN MD7.02 Nausea 07/11/2011 YUKI BUSH APRN 112.3 Candidiasis Of The Skin 07/11/2011 YUKI BUSH APRN 787.02 Nausea 07/11/2011 MARLENE ARREOLA PHD 112.3 Candidiasis Of The Skin 07/11/2011 MARLENE ARREOLA PHD 787.02 Nausea 07/11/2011 YUKI BUSH APRN 112.3 Candidiasis Of The Skin 07/11/2011 YUKI BUSH APRN 787.02 Nausea 07/11/2011 MACY TAMAYO APRN 112.3 Candidiasis Of The Skin 07/11/2011 MACY TAMAYO APRN 787.02 Nausea 07/11/2011 MACY TAMAYO APRN 112.3 Candidiasis Of The Skin 07/11/2011 MACY TAMAYO APRN 787.02 Nausea 07/11/2011 YUKI BUSH APRN 112.3 Candidiasis Of The Skin 07/11/2011 YUKI BUSH APRN 787.02 Nausea 07/27/2011 LINDSAY STRONG DO V90.9 Retained Foreign Body Unspecified Material 07/27/2011 V90.9 Retained Foreign Body Unspecified Material 07/27/2011 V90.9 Retained Foreign Body Unspecified Material 07/27/2011 MACY TAMAYO APRN V90.9 Retained Foreign Body Unspecified Material 07/27/2011 MACY TAMAYO APRN V90.9 Retained Foreign Body Unspecified Material 07/27/2011 LAINA SHERMAN MD V90.9 Retained Foreign Body Unspecified Material 07/27/2011 V90.9 Retained Foreign Body Unspecified Material 07/27/2011 MAYC TAMAYO APRN V90.9 Retained Foreign Body Unspecified Material 07/27/2011 V90.9 Retained Foreign Body Unspecified Material 07/27/2011 V90.9 Retained Foreign Body Unspecified Material 07/27/2011 V90.9 Retained Foreign Body Unspecified Material 07/27/2011 MACY TAMAYO APRN V90.9 Retained Foreign Body Unspecified Material 07/27/2011 MACY TAMAYO APRN V90.9 Retained Foreign Body Unspecified Material 07/27/2011 MACY TAMAYO APRN V90.9 Retained Foreign Body Unspecified Material 07/27/2011 MACY TAMAYO APRN V90.9 Retained Foreign Body Unspecified Material 07/27/2011 MACY TAMAYO APRN V90.9 Retained Foreign Body Unspecified Material 07/27/2011 MACY TAMAYO APRN V90.9 Retained Foreign Body Unspecified Material 07/27/2011 MACY TAMAYO APRN V90.9 Retained Foreign Body Unspecified Material 07/27/2011 MACY TAMAYO APRN V90.9 Retained Foreign Body Unspecified Material 07/27/2011 SHERRIE BLACKBURN MD V90.9 Retained Foreign Body Unspecified Material 07/27/2011 SHERRIE BLACKBURN MD V90.9 Retained Foreign Body Unspecified Material 07/27/2011 MACY TAMAYO APRN V90.9 Retained Foreign Body Unspecified Material 07/27/2011 MAXWELL PHD, MARLENE Dickey V90.9 Retained Foreign Body Unspecified Material 07/27/2011 MAXWELL PHD, MARLENE Dickey V90.9 Retained Foreign Body Unspecified Material 07/27/2011 SHERRIE BLACKBURN MD V90.9 Retained Foreign Body Unspecified Material 07/27/2011 SHERRIE BLACKBURN MD V90.9 Retained Foreign Body Unspecified Material 07/27/2011 MOISES BARROSO APRN V90.9 Retained Foreign Body Unspecified Material 07/27/2011 MACY TAMAYO APRN V90.9 Retained Foreign Body Unspecified Material 07/27/2011 YUKI BUSH APRN V90.9 Retained Foreign Body Unspecified Material 07/27/2011 MACY TAMAYO APRN V90.9 Retained Foreign Body Unspecified Material 07/27/2011 SHERRIE BLACKBURN MD V90.9 Retained Foreign Body Unspecified Material 07/27/2011 YUKI BUSH APRN V90.9 Retained Foreign Body Unspecified Material 07/27/2011 MAXWELL PHD, MARLENE Dickey V90.9 Retained Foreign Body Unspecified Material 07/27/2011 YUKI BUSH APRN V90.9 Retained Foreign Body Unspecified Material 07/27/2011 MACY TAMAYO APRN V90.9 Retained Foreign Body Unspecified Material 07/27/2011 MACY TAMAYO APRN V90.9 Retained Foreign Body Unspecified Material 07/27/2011 YUKI BUSH APRN V90.9 Retained Foreign Body Unspecified Material 08/24/2011 STRONG DO LINDSAY K 250.80 Hypoglycemia (diabetic) 08/24/2011 STRONG DO LINDSAY K 381.81 Eustachian Tube Dysfunction 08/24/2011 DEBBIE STRONG DOA K 477.9 Rhinitis 08/24/2011 250.80 Hypoglycemia (diabetic) 08/24/2011 381.81 Eustachian Tube Dysfunction 08/24/2011 477.9 Rhinitis 08/24/2011 250.80 Hypoglycemia (diabetic) 08/24/2011 381.81 Eustachian Tube Dysfunction 08/24/2011 477.9 Rhinitis 08/24/2011 MACY TAMAYO APRN 250.80 Hypoglycemia (diabetic) 08/24/2011 MACY TAMAYO APRN 381.81 Eustachian Tube Dysfunction 08/24/2011 MACY TAMAYO APRN 477.9 Rhinitis 08/24/2011 MACY TAMAYO APRN 250.80 Hypoglycemia (diabetic) 08/24/2011 MACY TAMAYO APRN 381.81 Eustachian Tube Dysfunction 08/24/2011 MACY TAMAYO APRN 477.9 Rhinitis 08/24/2011 LAINA SHERMAN MD 250.80 Hypoglycemia (diabetic) 08/24/2011 LAINA SHERMAN MD 381.81 Eustachian Tube Dysfunction 08/24/2011 LAINA SHERMAN MD 477.9 Rhinitis 08/24/2011 250.80 Hypoglycemia (diabetic) 08/24/2011 381.81 Eustachian Tube Dysfunction 08/24/2011 477.9 Rhinitis 08/24/2011 MACY TAMAYO APRN 250.80 Hypoglycemia (diabetic) 08/24/2011 MACY TAMAYO APRN 381.81 Eustachian Tube Dysfunction 08/24/2011 MACY TAMAYO APRN 477.9 Rhinitis 08/24/2011 250.80 Hypoglycemia (diabetic) 08/24/2011 381.81 Eustachian Tube Dysfunction 08/24/2011 477.9 Rhinitis 08/24/2011 250.80 Hypoglycemia (diabetic) 08/24/2011 381.81 Eustachian Tube Dysfunction 08/24/2011 477.9 Rhinitis 08/24/2011 250.80 Hypoglycemia (diabetic) 08/24/2011 381.81 Eustachian Tube Dysfunction 08/24/2011 477.9 Rhinitis 08/24/2011 MACY TAMAYO APRN 250.80 Hypoglycemia (diabetic) 08/24/2011 MACY TAMAYO APRN 381.81 Eustachian Tube Dysfunction 08/24/2011 MACY TAMAYO APRN 477.9 Rhinitis 08/24/2011 BELKIS BINDERY MANAGER, MACY T 250.80 Hypoglycemia (diabetic) 08/24/2011 MACY TAMAYO APRN T 381.81 Eustachian Tube Dysfunction 08/24/2011 MACY TAMAYO APRN T 477.9 Rhinitis 08/24/2011 MACY TAMAYO APRN T 250.80 Hypoglycemia (diabetic) 08/24/2011 MACY TAMAYO APRN T 381.81 Eustachian Tube Dysfunction 08/24/2011 MACY TAMAYO APRN T 477.9 Rhinitis 08/24/2011 MACY TAMAYO APRN T 250.80 Hypoglycemia (diabetic) 08/24/2011 MACY TAMAYO APRN T 381.81 Eustachian Tube Dysfunction 08/24/2011 MACY TAMAYO APRN T 477.9 Rhinitis 08/24/2011 MACY TAMAYO APRN T 250.80 Hypoglycemia (diabetic) 08/24/2011 MACY TAMAYO APRN T 381.81 Eustachian Tube Dysfunction 08/24/2011 MACY TAMAYO APRN T 477.9 Rhinitis 08/24/2011 MACY TAMAYO APRN T 250.80 Hypoglycemia (diabetic) 08/24/2011 MACY TAMAYO APRN T 381.81 Eustachian Tube Dysfunction 08/24/2011 MACY TAMAYO APRN T 477.9 Rhinitis 08/24/2011 MACY TAMAYO APRN T 250.80 Hypoglycemia (diabetic) 08/24/2011 MACY TAMAYO APRN T 381.81 Eustachian Tube Dysfunction 08/24/2011 MACY TAMAYO APRN T 477.9 Rhinitis 08/24/2011 MACY TAMAYO APRN T 250.80 Hypoglycemia (diabetic) 08/24/2011 MACY TAMAYO APRN T 381.81 Eustachian Tube Dysfunction 08/24/2011 MACY TAMAYO APRN T 477.9 Rhinitis 08/24/2011 SHERRIE BLACKBURN MD 250.80 Hypoglycemia (diabetic) 08/24/2011 SHERRIE BLACKBURN MD 381.81 Eustachian Tube Dysfunction 08/24/2011 SHERRIE BLACKBURN MD.9 Rhinitis 08/24/2011 SHERRIE BLACKBURN MD 250.80 Hypoglycemia (diabetic) 08/24/2011 SHERRIE BLACKBURN MD 381.81 Eustachian Tube Dysfunction 08/24/2011 SHERRIE LBACKBURN MD.9 Rhinitis 08/24/2011 MACY TAMAYO APRN T 250.80 Hypoglycemia (diabetic) 08/24/2011 MACY TAMAYO APRN T 381.81 Eustachian Tube Dysfunction 08/24/2011 MACY TAMAYO APRN 477.9 Rhinitis 08/24/2011 MAXWELL PHD, MARLENE Dickey 250.80 Hypoglycemia (diabetic) 08/24/2011 MAXWELL NIETO, MARLENE Dickey 381.81 Eustachian Tube Dysfunction 08/24/2011 MAXWELL PHD, MARLENE Dickey 477.9 Rhinitis 08/24/2011 MAXWELL PHD, MARLENE Dickey 250.80 Hypoglycemia (diabetic) 08/24/2011 MAXWELL NIETO, MARLENE Dickey 381.81 Eustachian Tube Dysfunction 08/24/2011 MAXWELL PHD, MARLENE Dickey 477.9 Rhinitis 08/24/2011 SHERRIE BLACKBURN MD 250.80 Hypoglycemia (diabetic) 08/24/2011 SHERRIE BLACKBURN MD 381.81 Eustachian Tube Dysfunction 08/24/2011 SHERRIE BLACKBURN MD7.9 Rhinitis 08/24/2011 SHERRIE BLACKBURN MD 250.80 Hypoglycemia (diabetic) 08/24/2011 SHERRIE BLACKBURN MD 381.81 Eustachian Tube Dysfunction 08/24/2011 SHERRIE BLACKBURN MD 477.9 Rhinitis 08/24/2011 MOISES BARROSO APRN 250.80 Hypoglycemia (diabetic) 08/24/2011 MOISES BARROSO APRN A 381.81 Eustachian Tube Dysfunction 08/24/2011 MOISES BARROSO APRN 477.9 Rhinitis 08/24/2011 MACY TAMAYO APRN 250.80 Hypoglycemia (diabetic) 08/24/2011 MACY TAMAYO APRN 381.81 Eustachian Tube Dysfunction 08/24/2011 MACY TAMAYO APRN 477.9 Rhinitis 08/24/2011 YUKI BUSH APRN 250.80 Hypoglycemia (diabetic) 08/24/2011 YUKI BUSH APRN 381.81 Eustachian Tube Dysfunction 08/24/2011 YUKI BUSH APRN 477.9 Rhinitis 08/24/2011 MACY TAMAYO APRN 250.80 Hypoglycemia (diabetic) 08/24/2011 MACY TAMAYO APRN 381.81 Eustachian Tube Dysfunction 08/24/2011 MACY TAMAYO APRN 477.9 Rhinitis 08/24/2011 SHERRIE BLACKBURN MD 250.80 Hypoglycemia (diabetic) 08/24/2011 SHERRIE BLACKBURN MD 381.81 Eustachian Tube Dysfunction 08/24/2011 BERE SAEZ, SHERRIE 477.9 Rhinitis 08/24/2011 YUKI BUSH APRN 250.80 Hypoglycemia (diabetic) 08/24/2011 YUKI BUSH APRN 381.81 Eustachian Tube Dysfunction 08/24/2011 YUKI BUSH APRN 477.9 Rhinitis 08/24/2011 MAXWELL NIETO, MARLENE Dickey 250.80 Hypoglycemia (diabetic) 08/24/2011 MAXWELL NIETO, MARLENE Dickey 381.81 Eustachian Tube Dysfunction 08/24/2011 MAXWELL NIETO, MARLENE Dickey 477.9 Rhinitis 08/24/2011 YUKI BUSH APRN 250.80 Hypoglycemia (diabetic) 08/24/2011 YUKI BUSH APRN 381.81 Eustachian Tube Dysfunction 08/24/2011 YUKI BUSH APRN 477.9 Rhinitis 08/24/2011 MACY TAMAYO APRN 250.80 Hypoglycemia (diabetic) 08/24/2011 MACY TAMAYO APRN 381.81 Eustachian Tube Dysfunction 08/24/2011 MACY TAMAYO APRN 477.9 Rhinitis 08/24/2011 MACY TAMAYO APRN 250.80 Hypoglycemia (diabetic) 08/24/2011 MACY TAMAYO APRN 381.81 Eustachian Tube Dysfunction 08/24/2011 MACY TAMAYO APRN 477.9 Rhinitis 08/24/2011 YUKI BUSH APRN 250.80 Hypoglycemia (diabetic) 08/24/2011 YUKI BUSH APRN 381.81 Eustachian Tube Dysfunction 08/24/2011 YUKI BUSH APRN 477.9 Rhinitis 10/10/2011 STRONG DO, LINDSAY K 692.9 Dermatitis 10/10/2011 STRONG DO, LINDSAY K 703.0 Ingrowing Nail With Infection 10/10/2011 692.9 Dermatitis 10/10/2011 703.0 Ingrowing Nail With Infection 10/10/2011 692.9 Dermatitis 10/10/2011 703.0 Ingrowing Nail With Infection 10/10/2011 MACY TAMAYO APRN 692.9 Dermatitis 10/10/2011 MACY TAMAYO APRN 703.0 Ingrowing Nail With Infection 10/10/2011 MACY TAMAYO APRN 692.9 Dermatitis 10/10/2011 MACY TAMAYO APRN T 703.0 Ingrowing Nail With Infection 10/10/2011 LAINA SHERMAN MD 692.9 Dermatitis 10/10/2011 LAINA SHERMAN MD 703.0 Ingrowing Nail With Infection 10/10/2011 692.9 Dermatitis 10/10/2011 703.0 Ingrowing Nail With Infection 10/10/2011 MACY TAMAYO APRN 692.9 Dermatitis 10/10/2011 MACY TAMAYO APRN T 703.0 Ingrowing Nail With Infection 10/10/2011 692.9 Dermatitis 10/10/2011 703.0 Ingrowing Nail With Infection 10/10/2011 692.9 Dermatitis 10/10/2011 703.0 Ingrowing Nail With Infection 10/10/2011 692.9 Dermatitis 10/10/2011 703.0 Ingrowing Nail With Infection 10/10/2011 MACY TAMAYO APRN 692.9 Dermatitis 10/10/2011 MACY TAMAYO APRN 703.0 Ingrowing Nail With Infection 10/10/2011 MACY TAMAYO APRN T 692.9 Dermatitis 10/10/2011 MACY TAMAYO APRN T 703.0 Ingrowing Nail With Infection 10/10/2011 MACY TAMAYO APRN 692.9 Dermatitis 10/10/2011 MACY TAMAYO APRN T 703.0 Ingrowing Nail With Infection 10/10/2011 MACY TAMAYO APRN T 692.9 Dermatitis 10/10/2011 MACY TAMAYO APRN T 703.0 Ingrowing Nail With Infection 10/10/2011 MACY TAMAYO APRN T 692.9 Dermatitis 10/10/2011 MACY TAMAYO APRN T 703.0 Ingrowing Nail With Infection 10/10/2011 MACY TAMAYO APRN T 692.9 Dermatitis 10/10/2011 MACY TAMAYO APRN 703.0 Ingrowing Nail With Infection 10/10/2011 MACY TAMAYO APRN T 692.9 Dermatitis 10/10/2011 MACY TAMAYO APRN T 703.0 Ingrowing Nail With Infection 10/10/2011 MACY TAMAYO APRN T 692.9 Dermatitis 10/10/2011 MACY TAMAYO APRN 703.0 Ingrowing Nail With Infection 10/10/2011 SHERRIE BLACKBURN MD 692.9 Dermatitis 10/10/2011 SHERRIE BLACKBURN MD 703.0 Ingrowing Nail With Infection 10/10/2011 SHERRIE BLACKBURN MD 692.9 Dermatitis 10/10/2011 SHERRIE BLACKBURN MD 703.0 Ingrowing Nail With Infection 10/10/2011 MACY TAMAYO APRN 692.9 Dermatitis 10/10/2011 MACY TAMAYO APRN 703.0 Ingrowing Nail With Infection 10/10/2011 MAXWELL PHD, MARLENE Dickey 692.9 Dermatitis 10/10/2011 MAXWELL PHD, MARLENE Dickey 703.0 Ingrowing Nail With Infection 10/10/2011 MAXWELL PHD, MARLENE Dickey 692.9 Dermatitis 10/10/2011 MAXWELL PHD, MARLENE Dickey 703.0 Ingrowing Nail With Infection 10/10/2011 SHERRIE BLACKBURN MD 692.9 Dermatitis 10/10/2011 SHERRIE BLACKBURN MD 703.0 Ingrowing Nail With Infection 10/10/2011 SHERRIE BLACKBURN MD 692.9 Dermatitis 10/10/2011 SHERRIE BLACKBURN MD 703.0 Ingrowing Nail With Infection 10/10/2011 DHARMESH KOROMAN, MOISES A 692.9 Dermatitis 10/10/2011 DHARMESH MG, MOISES A 703.0 Ingrowing Nail With Infection 10/10/2011 MACY TAMAYO APRN 692.9 Dermatitis 10/10/2011 MACY TAMAYO APRN 703.0 Ingrowing Nail With Infection 10/10/2011 YUKI BUSH APRN 692.9 Dermatitis 10/10/2011 YUKI BUSH APRN 703.0 Ingrowing Nail With Infection 10/10/2011 MACY TAMAYO APRN 692.9 Dermatitis 10/10/2011 MACY TAMAYO APRN 703.0 Ingrowing Nail With Infection 10/10/2011 SHERRIE BLACKBURN MD 692.9 Dermatitis 10/10/2011 SHERRIE BLACKBURN MD 703.0 Ingrowing Nail With Infection 10/10/2011 RACHELLE MG, YUKI 692.9 Dermatitis 10/10/2011 YUKI BUSH APRN 703.0 Ingrowing Nail With Infection 10/10/2011 MAXWELL PHD, MARLENE Dickey 692.9 Dermatitis 10/10/2011 MAXWELL NIETO, MARLENE Dickey 703.0 Ingrowing Nail With Infection 10/10/2011 YUKI BUSH APRN 692.9 Dermatitis 10/10/2011 RACHELLETAMY MG, YUKI 703.0 Ingrowing Nail With Infection 10/10/2011 MACY TAMAYO APRN 692.9 Dermatitis 10/10/2011 MACY TAMAYO APRN 703.0 Ingrowing Nail With Infection 10/10/2011 MACY TAMAYO APRN 692.9 Dermatitis 10/10/2011 MACY TAMAYO APRN 703.0 Ingrowing Nail With Infection 10/10/2011 RACHELLE MG, YUKI 692.9 Dermatitis 10/10/2011 YUKI BUSH APRN 703.0 Ingrowing Nail With Infection 12/03/2011 LINDSAY STRONG DO 691.8 DERMATITIS ATOPIC ECZEMA 12/03/2011 691.8 DERMATITIS ATOPIC ECZEMA 12/03/2011 691.8 DERMATITIS ATOPIC ECZEMA 12/03/2011 MACY TAMAYO APRN 691.8 DERMATITIS ATOPIC ECZEMA 12/03/2011 MACY TAMAYO APRN 691.8 DERMATITIS ATOPIC ECZEMA 12/03/2011 LIZETH SAEZ, LAINA Christianson 691.8 DERMATITIS ATOPIC ECZEMA 12/03/2011 691.8 DERMATITIS ATOPIC ECZEMA 12/03/2011 MACY TAMAYO APRN 691.8 DERMATITIS ATOPIC ECZEMA 12/03/2011 691.8 DERMATITIS ATOPIC ECZEMA 12/03/2011 691.8 DERMATITIS ATOPIC ECZEMA 12/03/2011 691.8 DERMATITIS ATOPIC ECZEMA 12/03/2011 MACY TAMAYO APRN 691.8 DERMATITIS ATOPIC ECZEMA 12/03/2011 MACY TAMAYO APRN 691.8 DERMATITIS ATOPIC ECZEMA 12/03/2011 MACY TAMAYO APRN 691.8 DERMATITIS ATOPIC ECZEMA 12/03/2011 MACY TAMAYO APRN 691.8 DERMATITIS ATOPIC ECZEMA 12/03/2011 MACY TAMAYO APRN 691.8 DERMATITIS ATOPIC ECZEMA 12/03/2011 MACY TAMAYO APRN 691.8 DERMATITIS ATOPIC ECZEMA 12/03/2011 MACY TAMAYO APRN 691.8 DERMATITIS ATOPIC ECZEMA 12/03/2011 MACY TAMAYO APRN 691.8 DERMATITIS ATOPIC ECZEMA 12/03/2011 SHERRIE BLACKBURN MD 691.8 DERMATITIS ATOPIC ECZEMA 12/03/2011 BERE SAEZ, SHERRIE 691.8 DERMATITIS ATOPIC ECZEMA 12/03/2011 MACY TAMAYO APRN 691.8 DERMATITIS ATOPIC ECZEMA 12/03/2011 MAXWELL PHD, MARLENE Dickey 691.8 DERMATITIS ATOPIC ECZEMA 12/03/2011 MAXWELL PHD, MARLENE Dickey 691.8 DERMATITIS ATOPIC ECZEMA 12/03/2011 BERE SAEZ, SHERRIE 691.8 DERMATITIS ATOPIC ECZEMA 12/03/2011 BERE SAEZ, SHERRIE 691.8 DERMATITIS ATOPIC ECZEMA 12/03/2011 MOISES BARROSO APRN 691.8 DERMATITIS ATOPIC ECZEMA 12/03/2011 MACY TAMAYO APRN 691.8 DERMATITIS ATOPIC ECZEMA 12/03/2011 YUKI BUSH APRN 691.8 DERMATITIS ATOPIC ECZEMA 12/03/2011 MACY TAMAYO APRN 691.8 DERMATITIS ATOPIC ECZEMA 12/03/2011 SHERRIE BLACKBURN MD 691.8 DERMATITIS ATOPIC ECZEMA 12/03/2011 YUKI BUSH APRN 691.8 DERMATITIS ATOPIC ECZEMA 12/03/2011 MAXWELL PHD, MARLENE Dickey 691.8 DERMATITIS ATOPIC ECZEMA 12/03/2011 YUKI BUSH APRN 691.8 DERMATITIS ATOPIC ECZEMA 12/03/2011 MACY TAMAYO APRN 691.8 DERMATITIS ATOPIC ECZEMA 12/03/2011 MACY TAMAYO APRN 691.8 DERMATITIS ATOPIC ECZEMA 12/03/2011 YUKI BUSH APRN 691.8 DERMATITIS ATOPIC ECZEMA 01/17/2012 LINDSAY STRONG DO 782.3 Edema 01/17/2012 782.3 Edema 01/17/2012 782.3 Edema 01/17/2012 MACY TAMAYO APRN 782.3 Edema 01/17/2012 MACY TAMAYO APRN 782.3 Edema 01/17/2012 LIZETH SAEZ, LAINA Christianson 782.3 Edema 01/17/2012 782.3 Edema 01/17/2012 MACY TAMAYO APRN 782.3 Edema 01/17/2012 782.3 Edema 01/17/2012 782.3 Edema 01/17/2012 782.3 Edema 01/17/2012 MACY TAMAYO APRN 782.3 Edema 01/17/2012 MACY TAMAYO APRN 782.3 Edema 01/17/2012 MACY TAMAYO APRN 782.3 Edema 01/17/2012 MACY TAMAYO APRN T 782.3 Edema 01/17/2012 MACY TAMAYO APRN 782.3 Edema 01/17/2012 MACY TAMAYO APRN T 782.3 Edema 01/17/2012 MACY TAMAYO APRN T 782.3 Edema 01/17/2012 MACY TAMAYO APRN T 782.3 Edema 01/17/2012 SHERRIE BLACKBURN MD 782.3 Edema 01/17/2012 SHERRIE BLACKBURN MD 782.3 Edema 01/17/2012 MACY TAMAYO APRN 782.3 Edema 01/17/2012 MAXWELL PHD, MARLENE Dickey 782.3 Edema 01/17/2012 MAXWELL PHD, MARLENE Dickey 782.3 Edema 01/17/2012 SHERRIE BLACKBURN MD 782.3 Edema 01/17/2012 SHERRIE BLACKBURN MD 782.3 Edema 01/17/2012 DHARMESH MG, MOISES Turk 782.3 Edema 01/17/2012 MACY TAMAYO APRN 782.3 Edema 01/17/2012 YUKI BUSH APRN 782.3 Edema 01/17/2012 MACY TAMAYO APRN 782.3 Edema 01/17/2012 SHERRIE BLACKBURN MD 782.3 Edema 01/17/2012 YUKI BUSH APRN 782.3 Edema 01/17/2012 MAXWELL PHD, MARLENE Dickey 782.3 Edema 01/17/2012 YUKI BUSH APRN 782.3 Edema 01/17/2012 MACY TAMAYO APRN 782.3 Edema 01/17/2012 MACY TAMAYO APRN 782.3 Edema 01/17/2012 RACHELLE MG YUKI 782.3 Edema 02/29/2012 STRONG DOLINDSAY K 729.4 PLANTAR FASCIITIS 02/29/2012 STRONG DOLINDSAY K 729.5 LEG PAIN 02/29/2012 729.4 PLANTAR FASCIITIS 02/29/2012 729.5 LEG PAIN 02/29/2012 729.4 PLANTAR FASCIITIS 02/29/2012 729.5 LEG PAIN 02/29/2012 MACY TAAMYO APRN 729.4 PLANTAR FASCIITIS 02/29/2012 MACY TAMAYO APRN 729.5 LEG PAIN 02/29/2012 BELKIS BINDERY MANAGER, MACY T 729.4 PLANTAR FASCIITIS 02/29/2012 BELKIS MG, MACY T 729.5 LEG PAIN 02/29/2012 LAINA SHERMAN MD 729.4 PLANTAR FASCIITIS 02/29/2012 LAINA SHERMAN MD 729.5 LEG PAIN 02/29/2012 729.4 PLANTAR FASCIITIS 02/29/2012 729.5 LEG PAIN 02/29/2012 MACY TAMAYO APRN T 729.4 PLANTAR FASCIITIS 02/29/2012 MACY TAMAYO APRN T 729.5 LEG PAIN 02/29/2012 729.4 PLANTAR FASCIITIS 02/29/2012 729.5 LEG PAIN 02/29/2012 729.4 PLANTAR FASCIITIS 02/29/2012 729.5 LEG PAIN 02/29/2012 729.4 PLANTAR FASCIITIS 02/29/2012 729.5 LEG PAIN 02/29/2012 MACY TAMAYO APRN T 729.4 PLANTAR FASCIITIS 02/29/2012 MACY TAMAYO APRN T 729.5 LEG PAIN 02/29/2012 MACY TAMAYO APRN T 729.4 PLANTAR FASCIITIS 02/29/2012 MACY TAMAYO APRN T 729.5 LEG PAIN 02/29/2012 MACY TAMAYO APRN T 729.4 PLANTAR FASCIITIS 02/29/2012 MACY TAMAYO APRN T 729.5 LEG PAIN 02/29/2012 MACY TAMAYO APRN T 729.4 PLANTAR FASCIITIS 02/29/2012 MACY TAMAYO APRN T 729.5 LEG PAIN 02/29/2012 MACY TAMAYO APRN T 729.4 PLANTAR FASCIITIS 02/29/2012 MACY TAMAYO APRN T 729.5 LEG PAIN 02/29/2012 MACY TAMAYO APRN T 729.4 PLANTAR FASCIITIS 02/29/2012 MACY TAMAYO APRN T 729.5 LEG PAIN 02/29/2012 MACY TAMAYO APRN T 729.4 PLANTAR FASCIITIS 02/29/2012 MACY TAMAYO APRN T 729.5 LEG PAIN 02/29/2012 MACY TAMAYO APRN T 729.4 PLANTAR FASCIITIS 02/29/2012 MACY TAMAYO APRN T 729.5 LEG PAIN 02/29/2012 SHERRIE BLACKBURN MD 729.4 PLANTAR FASCIITIS 02/29/2012 SHERRIE BLACKBURN MD 729.5 LEG PAIN 02/29/2012 SHERRIE BLACKBURN MD 729.4 PLANTAR FASCIITIS 02/29/2012 SHERRIE BLACKBURN MD 729.5 LEG PAIN 02/29/2012 MACY TAMAYO APRN 729.4 PLANTAR FASCIITIS 02/29/2012 MACY TAMAYO APRN 729.5 LEG PAIN 02/29/2012 MAXWELL PHD, MARLENE Dickey 729.4 PLANTAR FASCIITIS 02/29/2012 MAXWELL NIETO, MARLENE Dickey 729.5 LEG PAIN 02/29/2012 MAXWELL PHD, MARLENE Dickey 729.4 PLANTAR FASCIITIS 02/29/2012 MAXWELL PHD, MARLENE Dickey 729.5 LEG PAIN 02/29/2012 SHERRIE BLACKBURN MD 72Will.4 PLANTAR FASCIITIS 02/29/2012 SHERRIE BLACKBURN MD 72Will.5 LEG PAIN 02/29/2012 SHERRIE BLACKBURN MD 729.4 PLANTAR FASCIITIS 02/29/2012 SHERRIE BLACKBURN MD 729.5 LEG PAIN 02/29/2012 DHARMESH MG MOISES A 729.4 PLANTAR FASCIITIS 02/29/2012 MOISES BARROSO APRN A 729.5 LEG PAIN 02/29/2012 MACY TAMAYO APRN 729.4 PLANTAR FASCIITIS 02/29/2012 MACY TAMAYO APRN 729.5 LEG PAIN 02/29/2012 RACHELLE MG, YUKI 729.4 PLANTAR FASCIITIS 02/29/2012 RACHELLE MG YUKI 729.5 LEG PAIN 02/29/2012 MACY TAMAYO APRN 729.4 PLANTAR FASCIITIS 02/29/2012 MACY TAMAYO APRN 729.5 LEG PAIN 02/29/2012 SHERRIE BLACKBURN MD 729.4 PLANTAR FASCIITIS 02/29/2012 SHERRIE BLACKBURN MD 729.5 LEG PAIN 02/29/2012 RACHELLE MG, YUKI 729.4 PLANTAR FASCIITIS 02/29/2012 RACHELLE MG YUKI 729.5 LEG PAIN 02/29/2012 MAXWELL NIETO, MARLENE Dickey 729.4 PLANTAR FASCIITIS 02/29/2012 MAXWELL NIETO, MARLENE Dickey 729.5 LEG PAIN 02/29/2012 RACHELLE BINDERY MANAGER, YUKI 729.4 PLANTAR FASCIITIS 02/29/2012 YUKI BUSH APRN 729.5 LEG PAIN 02/29/2012 MACY TAMAYO APRN 729.4 PLANTAR FASCIITIS 02/29/2012 MACY TAMAYO APRN 729.5 LEG PAIN 02/29/2012 MACY TAMAYO APRN 729.4 PLANTAR FASCIITIS 02/29/2012 MACY TAMAYO APRN 729.5 LEG PAIN 02/29/2012 YARY BUSH APRNETTE 729.4 PLANTAR FASCIITIS 02/29/2012 YUKI BUSH APRN 729.5 LEG PAIN 03/29/2012 LINDSAY STRONG DO 616.10 Vaginitis Vulvovaginitis Unspecified 03/29/2012 LINDSAY STRONG DO 627.8 PERIMENOPAUSE 03/29/2012 616.10 Vaginitis Vulvovaginitis Unspecified 03/29/2012 627.8 PERIMENOPAUSE 03/29/2012 616.10 Vaginitis Vulvovaginitis Unspecified 03/29/2012 627.8 PERIMENOPAUSE 03/29/2012 MACY TAMAYO APRN 616.10 Vaginitis Vulvovaginitis Unspecified 03/29/2012 MACY TAMAYO APRN 627.8 PERIMENOPAUSE 03/29/2012 MACY TAMAYO APRN 616.10 Vaginitis Vulvovaginitis Unspecified 03/29/2012 MACY TAMAYO APRN 627.8 PERIMENOPAUSE 03/29/2012 LAINA SHERMAN MD 616.10 Vaginitis Vulvovaginitis Unspecified 03/29/2012 LAINA SHERMAN MD 627.8 PERIMENOPAUSE 03/29/2012 616.10 Vaginitis Vulvovaginitis Unspecified 03/29/2012 627.8 PERIMENOPAUSE 03/29/2012 MACY TAMAYO APRN 616.10 Vaginitis Vulvovaginitis Unspecified 03/29/2012 MACY TAMAYO APRN 627.8 PERIMENOPAUSE 03/29/2012 616.10 Vaginitis Vulvovaginitis Unspecified 03/29/2012 627.8 PERIMENOPAUSE 03/29/2012 616.10 Vaginitis Vulvovaginitis Unspecified 03/29/2012 627.8 PERIMENOPAUSE 03/29/2012 616.10 Vaginitis Vulvovaginitis Unspecified 03/29/2012 627.8 PERIMENOPAUSE 03/29/2012 MACY TAMAYO APRN T 616.10 Vaginitis Vulvovaginitis Unspecified 03/29/2012 MACY TAMAYO APRN T 627.8 PERIMENOPAUSE 03/29/2012 MACY TAMAYO APRN T 616.10 Vaginitis Vulvovaginitis Unspecified 03/29/2012 MACY TAMAYO APRN T 627.8 PERIMENOPAUSE 03/29/2012 MACY TAMAYO APRN T 616.10 Vaginitis Vulvovaginitis Unspecified 03/29/2012 MACY TAMAYO APRN T 627.8 PERIMENOPAUSE 03/29/2012 MACY TAMAYO APRN T 616.10 Vaginitis Vulvovaginitis Unspecified 03/29/2012 MACY TAMAYO APRN T 627.8 PERIMENOPAUSE 03/29/2012 MACY TAMAYO APRN T 616.10 Vaginitis Vulvovaginitis Unspecified 03/29/2012 MACY TAMAYO APRN T 627.8 PERIMENOPAUSE 03/29/2012 MACY TAMAYO APRN T 616.10 Vaginitis Vulvovaginitis Unspecified 03/29/2012 MACY TAMAYO APRN T 627.8 PERIMENOPAUSE 03/29/2012 MACY TAMAYO APRN T 616.10 Vaginitis Vulvovaginitis Unspecified 03/29/2012 MACY TAMAYO APRN T 627.8 PERIMENOPAUSE 03/29/2012 MACY TAMAYO APRN T 616.10 Vaginitis Vulvovaginitis Unspecified 03/29/2012 MACY TAMAYO APRN T 627.8 PERIMENOPAUSE 03/29/2012 SHERRIE BLACKBURN MD 616.10 Vaginitis Vulvovaginitis Unspecified 03/29/2012 SHERRIE BLACKBURN MD 627.8 PERIMENOPAUSE 03/29/2012 SHERRIE BLACKBURN MD 616.10 Vaginitis Vulvovaginitis Unspecified 03/29/2012 SHERRIE BLACKBURN MD 627.8 PERIMENOPAUSE 03/29/2012 MACY TAMAYO APRN T 616.10 Vaginitis Vulvovaginitis Unspecified 03/29/2012 MACY TAMAYO APRN T 627.8 PERIMENOPAUSE 03/29/2012 MAXWELL NIETO, MARLENE Dickey 616.10 Vaginitis Vulvovaginitis Unspecified 03/29/2012 MAXWELL PHD, MARLENE Dickey 627.8 PERIMENOPAUSE 03/29/2012 MAXWELL NIETO, MARLENE Dickey 616.10 Vaginitis Vulvovaginitis Unspecified 03/29/2012 MAXWELL NIETO, MARLENE Dickey 627.8 PERIMENOPAUSE 03/29/2012 SHERRIE BLACKBURN MD 616.10 Vaginitis Vulvovaginitis Unspecified 03/29/2012 SHERRIE BLACKBURN MD 627.8 PERIMENOPAUSE 03/29/2012 SHERRIE BLACKBURN MD 616.10 Vaginitis Vulvovaginitis Unspecified 03/29/2012 SHERRIE BLACKBURN MD 627.8 PERIMENOPAUSE 03/29/2012 MOISES BARROSO APRN 616.10 Vaginitis Vulvovaginitis Unspecified 03/29/2012 DHARMESH MG, MOISES A 627.8 PERIMENOPAUSE 03/29/2012 MACY TAMAYO APRN 616.10 Vaginitis Vulvovaginitis Unspecified 03/29/2012 MACY TAMAYO APRN 627.8 PERIMENOPAUSE 03/29/2012 RACHELLE MG, YUKI 616.10 Vaginitis Vulvovaginitis Unspecified 03/29/2012 RACHELLE MG, YUKI 627.8 PERIMENOPAUSE 03/29/2012 MACY TAMAYO APRN 616.10 Vaginitis Vulvovaginitis Unspecified 03/29/2012 MACY TAMAYO APRN 627.8 PERIMENOPAUSE 03/29/2012 SHERRIE BLACKBURN MD 616.10 Vaginitis Vulvovaginitis Unspecified 03/29/2012 SHERRIE BLACKBURN MD 627.8 PERIMENOPAUSE 03/29/2012 RACHELLE MG, YUKI 616.10 Vaginitis Vulvovaginitis Unspecified 03/29/2012 RACHELLE MG, YUKI 627.8 PERIMENOPAUSE 03/29/2012 MAXWELL NIETO, MARLENE Dickey 616.10 Vaginitis Vulvovaginitis Unspecified 03/29/2012 MAXWELL NIETO, MARLENE Dickey 627.8 PERIMENOPAUSE 03/29/2012 RACHELLE MG, YUKI 616.10 Vaginitis Vulvovaginitis Unspecified 03/29/2012 RACHELLE BINDERY MANAGER, YUKI 627.8 PERIMENOPAUSE 03/29/2012 MACY TAMAYO APRN T 616.10 Vaginitis Vulvovaginitis Unspecified 03/29/2012 MACY TAMAYO APRN T 627.8 PERIMENOPAUSE 03/29/2012 MACY TAMAYO APRN T 616.10 Vaginitis Vulvovaginitis Unspecified 03/29/2012 MACY TAMAYO APRN T 627.8 PERIMENOPAUSE 03/29/2012 RACHELLE BINDERY MANAGER, YUKI 616.10 Vaginitis Vulvovaginitis Unspecified 03/29/2012 RACHELLE BINDERY MANAGER, YUKI 627.8 PERIMENOPAUSE 04/18/2012 LINDSAY STRONG DO 511.0 PLEURISY NOS 04/18/2012 511.0 PLEURISY NOS 04/18/2012 511.0 PLEURISY NOS 04/18/2012 MACY TAMAYO APRN T 511.0 PLEURISY NOS 04/18/2012 BELKIS MG MACY T 511.0 PLEURISY NOS 04/18/2012 LIZETH SAEZ, LAINA Christianson 511.0 PLEURISY NOS 04/18/2012 511.0 PLEURISY NOS 04/18/2012 BELKIS MG MACY T 511.0 PLEURISY NOS 04/18/2012 511.0 PLEURISY NOS 04/18/2012 511.0 PLEURISY NOS 04/18/2012 511.0 PLEURISY NOS 04/18/2012 MACY TAMAYO APRN T 511.0 PLEURISY NOS 04/18/2012 BELKIS MG MACY T 511.0 PLEURISY NOS 04/18/2012 BELKIS MG MACY T 511.0 PLEURISY NOS 04/18/2012 BELKIS MG MACY T 511.0 PLEURISY NOS 04/18/2012 BELKIS MG MACY T 511.0 PLEURISY NOS 04/18/2012 MACY TAMAYO APRN T 511.0 PLEURISY NOS 04/18/2012 BELKIS MG MACY T 511.0 PLEURISY NOS 04/18/2012 BELKIS MG MACY T 511.0 PLEURISY NOS 04/18/2012 SHERRIE BLACKBURN MD 511.0 PLEURISY NOS 04/18/2012 SHERRIE BLACKBURN MD 511.0 PLEURISY NOS 04/18/2012 BELKIS MG, MACY T 511.0 PLEURISY NOS 04/18/2012 MAXWELL PHD, MARLENE Dickey 511.0 PLEURISY NOS 04/18/2012 MAXWELL PHD, MARLENE Dickey 511.0 PLEURISY NOS 04/18/2012 BERE SAEZ, SHERRIE 511.0 PLEURISY NOS 04/18/2012 BERE SAEZ, SHERRIE 511.0 PLEURISY NOS 04/18/2012 DHARMESH MG, MOISES A 511.0 PLEURISY NOS 04/18/2012 BELKIS MG, MACY T 511.0 PLEURISY NOS 04/18/2012 RACHELLETAMY MG, YUKI 511.0 PLEURISY NOS 04/18/2012 MACY TAMAYO APRN T 511.0 PLEURISY NOS 04/18/2012 BERE SAEZ, SHERRIE 511.0 PLEURISY NOS 04/18/2012 RACHELLETAMY MG, YUKI 511.0 PLEURISY NOS 04/18/2012 MAXWELL PHD, MARLENE Dickey 511.0 PLEURISY NOS 04/18/2012 RACHELLETAMY KOROMAN, YUKI 511.0 PLEURISY NOS 04/18/2012 MACY TAMAYO APRN T 511.0 PLEURISY NOS 04/18/2012 MACY TAMAYO APRN T 511.0 PLEURISY NOS 04/18/2012 RACHELLE MG, YUKI 511.0 PLEURISY NOS 06/20/2012 782.1 RASH 06/20/2012 MACY TAMAYO APRN T 782.1 RASH 06/20/2012 MACY TAMAYO APRN T 782.1 RASH 06/20/2012 LIZETH SAEZ, LAINA Christianson 782.1 RASH 06/20/2012 782.1 RASH 06/20/2012 MACY TAMAYO APRN T 782.1 RASH 06/20/2012 782.1 RASH 06/20/2012 782.1 RASH 06/20/2012 782.1 RASH 06/20/2012 MACY TAMAYO APRN 782.1 RASH 06/20/2012 MACY TAMAYO APRN T 782.1 RASH 06/20/2012 MACY TAMAYO APRN T 782.1 RASH 06/20/2012 MACY TAMAYO APRN T 782.1 RASH 06/20/2012 MACY TAMAYO APRN 782.1 RASH 06/20/2012 MACY TAMAYO APRN 782.1 RASH 06/20/2012 MACY TAMAYO APRN T 782.1 RASH 06/20/2012 MACY TAMAYO APRN T 782.1 RASH 06/20/2012 BERE SAEZ, SHERRIE 782.1 RASH 06/20/2012 SHERRIE BLACKBURN MD 782.1 RASH 06/20/2012 MACY TAMAYO APRN 782.1 RASH 06/20/2012 MAXWELL PHD, MARLENE Dickey 782.1 RASH 06/20/2012 MAXWELL PHD, MARLENE Dickey 782.1 RASH 06/20/2012 SHERRIE BLACKBURN MD 782.1 RASH 06/20/2012 SHERRIE BLACKBURN MD 782.1 RASH 06/20/2012 DHARMESH MG, MOISES Turk 782.1 RASH 06/20/2012 MACY TAMAYO APRN T 782.1 RASH 06/20/2012 RACHELLE MG, YUKI 782.1 RASH 06/20/2012 MACY TAMAYO APRN T 782.1 RASH 06/20/2012 SHERRIE BLACKBURN MD 782.1 RASH 06/20/2012 RACHELLETAMY MG, YUKI 782.1 RASH 06/20/2012 MAXWELL PHD, MARLENE Dickey 782.1 RASH 06/20/2012 RACHELLETAMY MG, YUKI 782.1 RASH 06/20/2012 MACY TAMAYO APRN T 782.1 RASH 06/20/2012 MACY TAMAYO APRN T 782.1 RASH 06/20/2012 RACHELLETAMY MG, YUKI 782.1 RASH 08/08/2012 LIZETH SAEZ, LAINA Christianson 786.05 shortness of breath 08/08/2012 786.05 shortness of breath 08/08/2012 MACY TAMAYO APRN 786.05 shortness of breath 08/08/2012 786.05 shortness of breath 08/08/2012 786.05 shortness of breath 08/08/2012 786.05 shortness of breath 08/08/2012 MACY ATMAYO APRN 786.05 shortness of breath 08/08/2012 MACY TAMAYO APRN 786.05 shortness of breath 08/08/2012 MACY TAMAYO APRN 786.05 shortness of breath 08/08/2012 MACY TAMAYO APRN 786.05 shortness of breath 08/08/2012 BELKIS BINDERY MANAGER, MACY T 786.05 SHORTNESS OF BREATH 08/08/2012 MACY TAMAYO APRN 786.05 SHORTNESS OF BREATH 08/08/2012 MACY TAMAYO APRN 786.05 SHORTNESS OF BREATH 08/08/2012 MACY TAMAYO APRN 786.05 SHORTNESS OF BREATH 08/08/2012 SHERRIE BLACKBURN MD 786.05 SHORTNESS OF BREATH 08/08/2012 SHERRIE BLACKBURN MD 786.05 SHORTNESS OF BREATH 08/08/2012 MACY TAMAYO APRN 786.05 SHORTNESS OF BREATH 08/08/2012 MAXWELL PHD, MARLENE Dickey 786.05 SHORTNESS OF BREATH 08/08/2012 MAXWELL PHD, MARLENE Dickey 786.05 SHORTNESS OF BREATH 08/08/2012 SHERRIE BLACKBURN MD 786.05 SHORTNESS OF BREATH 08/08/2012 SHERRIE BLACKBURN MD 786.05 SHORTNESS OF BREATH 08/08/2012 MOISES BARROSO APRN 786.05 SHORTNESS OF BREATH 08/08/2012 MACY TAMAYO APRN 786.05 SHORTNESS OF BREATH 08/08/2012 YUKI BUSH APRN 786.05 SHORTNESS OF BREATH 08/08/2012 MACY TAMAYO APRN 786.05 SHORTNESS OF BREATH 08/08/2012 SHERRIE BLACKBURN MD 786.05 SHORTNESS OF BREATH 08/08/2012 YUKI BUSH APRN 786.05 SHORTNESS OF BREATH 08/08/2012 MAXWELL PHD, MARLENE Dickey 786.05 SHORTNESS OF BREATH 08/08/2012 YUKI BUSH APRN 786.05 SHORTNESS OF BREATH 08/08/2012 MACY TAMAYO APRN 786.05 SHORTNESS OF BREATH 08/08/2012 MACY TAMAYO APRN 786.05 SHORTNESS OF BREATH 08/08/2012 YUKI BUSH APRN 786.05 SHORTNESS OF BREATH 10/17/2012 V58.69 MEDICATION HIGH RISK 10/17/2012 V58.69 MEDICATION HIGH RISK 10/17/2012 V58.69 MEDICATION HIGH RISK 10/17/2012 MACY TAMAYO APRN V58.69 MEDICATION HIGH RISK 10/17/2012 MACY TAMAYO APRN V58.69 MEDICATION HIGH RISK 10/17/2012 MACY TAMAYO APRN V58.69 MEDICATION HIGH RISK 10/17/2012 MACY TAMAYO APRN V58.69 MEDICATION HIGH RISK 10/17/2012 MACY TAMAYO APRN T V58.69 MEDICATION HIGH RISK 10/17/2012 MACY TAMAYO APRN T V58.69 MEDICATION HIGH RISK 10/17/2012 MACY TAMAYO APRN T V58.69 MEDICATION HIGH RISK 10/17/2012 MACY TAMAYO APRN T V58.69 MEDICATION HIGH RISK 10/17/2012 BERE SAEZ, SHERRIE V58.69 MEDICATION HIGH RISK 10/17/2012 BERE SAEZ, SHERRIE V58.69 MEDICATION HIGH RISK 10/17/2012 MACY TAMAYO APRN T V58.69 MEDICATION HIGH RISK 10/17/2012 MAXWELL PHD, MARLENE Dickey V58.69 MEDICATION HIGH RISK 10/17/2012 MAXWELL PHD, MARLENE Dickey V58.69 MEDICATION HIGH RISK 10/17/2012 BERE SAEZ, SHERRIE V58.69 MEDICATION HIGH RISK 10/17/2012 BERE SAEZ, SHERRIE V58.69 MEDICATION HIGH RISK 10/17/2012 MOISES BARROSO APRN V58.69 MEDICATION HIGH RISK 10/17/2012 MACY TAMAYO APRN T V58.69 MEDICATION HIGH RISK 10/17/2012 RACHELLE MG, YUKI V58.69 MEDICATION HIGH RISK 10/17/2012 MACY TAMAYO APRN T V58.69 MEDICATION HIGH RISK 10/17/2012 SHERRIE BLACKBURN MD V58.69 MEDICATION HIGH RISK 10/17/2012 RACHELLE MG, YUKI V58.69 MEDICATION HIGH RISK 10/17/2012 MAXWELL PHD, MARLENE Dickey V58.69 MEDICATION HIGH RISK 10/17/2012 RACHELLE MG, YUKI V58.69 MEDICATION HIGH RISK 10/17/2012 MACY TAMAYO APRN T V58.69 MEDICATION HIGH RISK 10/17/2012 MACY TAMAYO APRN T V58.69 MEDICATION HIGH RISK 10/17/2012 RACHELLE MG, YUKI V58.69 MEDICATION HIGH RISK 02/11/2013 MACY TAMAYO APRN 710.3 DERMATOMYOSITIS 02/11/2013 MACY TAMAYO APRN 710.3 DERMATOMYOSITIS 02/11/2013 MACY TAMAYO APRN 710.3 DERMATOMYOSITIS 02/11/2013 MACY TAMAYO APRN 710.3 DERMATOMYOSITIS 02/11/2013 MACY TAMAYO APRN 710.3 DERMATOMYOSITIS 02/11/2013 BELKIS BINDERY MANAGER, MACY T 710.3 DERMATOMYOSITIS 02/11/2013 BELKIS KOROMAN, MACY T 710.3 DERMATOMYOSITIS 02/11/2013 BELKIS MG, MACY T 710.3 DERMATOMYOSITIS 02/11/2013 BERE SAEZ, SHERRIE 710.3 DERMATOMYOSITIS 02/11/2013 BERE SAEZ, SHERRIE 710.3 DERMATOMYOSITIS 02/11/2013 BELKIS MG, MACY T 710.3 DERMATOMYOSITIS 02/11/2013 MAXWELL PHD, MARLENE Dickey 710.3 DERMATOMYOSITIS 02/11/2013 MAXWELL PHD, MARLENE Dickey 710.3 DERMATOMYOSITIS 02/11/2013 BERE SAEZ, SHERRIE 710.3 DERMATOMYOSITIS 02/11/2013 BERE SAEZ, SHERRIE 710.3 DERMATOMYOSITIS 02/11/2013 DHARMESH KOROMAN, MOISES Turk 710.3 DERMATOMYOSITIS 02/11/2013 BELKIS BINDERY MANAGER, MACY T 710.3 DERMATOMYOSITIS 02/11/2013 RACHELLE BINDERY MANAGER, YUKI 710.3 DERMATOMYOSITIS 02/11/2013 BELKIS KOROMAN, MACY T 710.3 DERMATOMYOSITIS 02/11/2013 BERE SAEZ, SHERRIE 710.3 DERMATOMYOSITIS 02/11/2013 RACHELLE BINDERY MANAGER, YUKI 710.3 DERMATOMYOSITIS 02/11/2013 MAXWELL PHD, MARLENE Dickey 710.3 DERMATOMYOSITIS 02/11/2013 RACHELLE BINDERY MANAGER, YUKI 710.3 DERMATOMYOSITIS 02/11/2013 BELKIS KOROMAN, MACY T 710.3 DERMATOMYOSITIS 02/11/2013 BELKIS KOROMAN, MACY T 710.3 DERMATOMYOSITIS 02/11/2013 RACHELLE BINDERY MANAGER, YUKI 710.3 DERMATOMYOSITIS 03/13/2013 BELKIS MG, MACY T 008.8 GASTROENTERITIS, VIRAL 03/13/2013 BELKIS MG, MACY T 008.8 GASTROENTERITIS, VIRAL 03/13/2013 BELKIS MG, MACY T 008.8 GASTROENTERITIS, VIRAL 03/13/2013 BELKIS MG, MACY T 008.8 GASTROENTERITIS, VIRAL 03/13/2013 BELKIS MG, MACY T 008.8 GASTROENTERITIS, VIRAL 03/13/2013 BELKIS MG, MACY T 008.8 GASTROENTERITIS, VIRAL 03/13/2013 BELKIS MG, MACY T 008.8 GASTROENTERITIS, VIRAL 03/13/2013 SHERRIE BLACKBURN MD 008.8 GASTROENTERITIS, VIRAL 03/13/2013 SHERRIE BLACKBURN MD 008.8 GASTROENTERITIS, VIRAL 03/13/2013 MACY TAMAYO APRN 008.8 GASTROENTERITIS, VIRAL 03/13/2013 MAXWELL PHD, MARLENE Dickey 008.8 GASTROENTERITIS, VIRAL 03/13/2013 MAXWELL PHD, MARLENE Dickey 008.8 GASTROENTERITIS, VIRAL 03/13/2013 SHERRIE BLACKBURN MD 008.8 GASTROENTERITIS, VIRAL 03/13/2013 BERE SAEZ, SHERRIE 008.8 GASTROENTERITIS, VIRAL 03/13/2013 DHARMESH MG, MOISES Turk 008.8 GASTROENTERITIS, VIRAL 03/13/2013 BELKIS MG, MACY T 008.8 GASTROENTERITIS, VIRAL 03/13/2013 RACHELLE BINDERY MANAGER, YUKI 008.8 GASTROENTERITIS, VIRAL 03/13/2013 MACY TAMAYO APRN 008.8 GASTROENTERITIS, VIRAL 03/13/2013 SHERRIE BLACKBURN MD 008.8 GASTROENTERITIS, VIRAL 03/13/2013 RACHELLE BINDERY MANAGER, YUKI 008.8 GASTROENTERITIS, VIRAL 03/13/2013 MAXWELL PHD, MARLENE Dickey 008.8 GASTROENTERITIS, VIRAL 03/13/2013 RACHELLE BINDERY MANAGER, YUKI 008.8 GASTROENTERITIS, VIRAL 03/13/2013 MACY TAMAYO APRN T 008.8 GASTROENTERITIS, VIRAL 03/13/2013 BELKIS MG, MACY T 008.8 GASTROENTERITIS, VIRAL 03/13/2013 RACHELLE BINDERY MANAGER, YUKI 008.8 GASTROENTERITIS, VIRAL 08/09/2013 MACY TAMAYO APRN 535.50 GASTRITIS UNSPEC 08/09/2013 MACY TAMAYO APRN 535.50 GASTRITIS UNSPEC 08/09/2013 MACY TAMAYO APRN 535.50 GASTRITIS UNSPEC 08/09/2013 MACY TAMAYO APRN 535.50 GASTRITIS UNSPEC 08/09/2013 MACY TAMAYO APRN 535.50 GASTRITIS UNSPEC 08/09/2013 SHERRIE BLACKBURN MD 535.50 GASTRITIS UNSPEC 08/09/2013 SHERRIE BLACKBURN MD 535.50 GASTRITIS UNSPEC 08/09/2013 MACY TAMAYO APRN 535.50 GASTRITIS UNSPEC 08/09/2013 MAXWELL PHD, MARLENE Dickey 535.50 GASTRITIS UNSPEC 08/09/2013 MAXWELL PHD, MARLENE Dickey 535.50 GASTRITIS UNSPEC 08/09/2013 SHERRIE BLACKBURN MD 535.50 GASTRITIS UNSPEC 08/09/2013 HSERRIE BLACKBURN MD 535.50 GASTRITIS UNSPEC 08/09/2013 DHARMESH MG, MOISES Turk 535.50 GASTRITIS UNSPEC 08/09/2013 MACY TAMAYO APRN 535.50 GASTRITIS UNSPEC 08/09/2013 YUKI BUSH APRN 535.50 GASTRITIS UNSPEC 08/09/2013 BELKIS MG MACY Claudine 535.50 GASTRITIS UNSPEC 08/09/2013 SHERRIE BLACKBURN MD 535.50 GASTRITIS UNSPEC 08/09/2013 YUKI BUSH APRN 535.50 GASTRITIS UNSPEC 08/09/2013 MAXWELL NIETO, MARLENE Dickey 535.50 GASTRITIS UNSPEC 08/09/2013 YUKI BUSH APRN 535.50 GASTRITIS UNSPEC 08/09/2013 MACY TAMAYO APRN 535.50 GASTRITIS UNSPEC 08/09/2013 MACY TAMAYO APRN 535.50 GASTRITIS UNSPEC 08/09/2013 YUKI BUSH APRN 535.50 GASTRITIS UNSPEC 10/14/2013 MACY TAMAYO APRN 214.9 LIPOMA 10/14/2013 MACY TAMAYO APRN 782.3 EDEMA 10/14/2013 MACY TAMAYO APRN 214.9 LIPOMA 10/14/2013 MACY TAMAYO APRN 782.3 EDEMA 10/14/2013 MACY TAMAYO APRN 214.9 LIPOMA 10/14/2013 MACY TAMAYO APRN 782.3 EDEMA 10/14/2013 SHERRIE BLACKBURN MD 214.9 LIPOMA 10/14/2013 SHERRIE BLACKBURN MD 782.3 EDEMA 10/14/2013 SHERRIE BLACKBURN MD 214.9 LIPOMA 10/14/2013 SHERRIE BLACKBURN MD 782.3 EDEMA 10/14/2013 MACY TAMAYO APRN 214.9 LIPOMA 10/14/2013 MACY TAMAYO APRN 782.3 EDEMA 10/14/2013 MAXWELL PHD, MARLENE Dickey 214.9 LIPOMA 10/14/2013 MAXWELL PHD, MARLENE Dickey 782.3 EDEMA 10/14/2013 MAXWELL PHD, MARLENE Dickey 214.9 LIPOMA 10/14/2013 MAXWELL PHD, MARLENE Dickey 782.3 EDEMA 10/14/2013 SHERRIE BLACKBURN MD 214.9 LIPOMA 10/14/2013 SHERRIE BLACKBURN MD 782.3 EDEMA 10/14/2013 SHERRIE BLACKBURN MD 214.9 LIPOMA 10/14/2013 SHERRIE BLACKBURN MD 782.3 EDEMA 10/14/2013 MOISES BARROSO APRN 214.9 LIPOMA 10/14/2013 DHARMESH MG, MOISES Turk 782.3 EDEMA 10/14/2013 BELKIS BINDERY MANAGER, MACY T 214.9 LIPOMA 10/14/2013 BELKIS BINDERY MANAGER, MACY T 782.3 EDEMA 10/14/2013 RACHELLE BINDERY MANAGER, YUKI 214.9 LIPOMA 10/14/2013 RACHELLE BINDERY MANAGER, YUKI 782.3 EDEMA 10/14/2013 BELKIS SAURAV, MACY T 214.9 LIPOMA 10/14/2013 BELKIS MG, MACY T 782.3 EDEMA 10/14/2013 SHERRIE BLACKBURN MD 214.9 LIPOMA 10/14/2013 SHERRIE BLACKBURN MD 782.3 EDEMA 10/14/2013 RACHELLE BINDERY MANAGER, YUKI 214.9 LIPOMA 10/14/2013 RACHELLE BINDERY MANAGER, YUKI 782.3 EDEMA 10/14/2013 MAXWELL PHD, MARLENE Dickey 214.9 LIPOMA 10/14/2013 MAXWELL PHD, MARLENE Dickey 782.3 EDEMA 10/14/2013 RACHELLE BINDERY MANAGER, YUKI 214.9 LIPOMA 10/14/2013 RACHELLE BINDERY MANAGER, YUKI 782.3 EDEMA 10/14/2013 BELKIS SAURAV, MACY T 214.9 LIPOMA 10/14/2013 BELKIS BINDERY MANAGER, AMCY T 782.3 EDEMA 10/14/2013 BELKIS BINDERY MANAGER, MACY T 214.9 LIPOMA 10/14/2013 BELKIS SAURAV, MACY T 782.3 EDEMA 10/14/2013 RACHELLE BINDERY MANAGER, YUKI 214.9 LIPOMA 10/14/2013 RACHELLE BINDERY MANAGER, YUKI 782.3 EDEMA 01/01/2014 MACY TAMAYO APRN T 786.05 SHORTNESS OF BREATH 01/01/2014 SHERRIE BLACKBURN MD 786.05 SHORTNESS OF BREATH 01/01/2014 SHERRIE BLACKBURN MD 786.05 SHORTNESS OF BREATH 01/01/2014 MACY TAMAYO APRN 786.05 SHORTNESS OF BREATH 01/01/2014 MAXWELL PHD, MARLENE Dickey 786.05 SHORTNESS OF BREATH 01/01/2014 MAXWELL NIETO, MARLENE Dickey 786.05 SHORTNESS OF BREATH 01/01/2014 SHERRIE BLACKBURN MD 786.05 SHORTNESS OF BREATH 01/01/2014 SHERRIE BLACKBURN MD 786.05 SHORTNESS OF BREATH 01/01/2014 DHARMESH BINDERY MANAGER, MOISES A 786.05 SHORTNESS OF BREATH 01/01/2014 MACY TAMAYO APRN T 786.05 SHORTNESS OF BREATH 01/01/2014 RACHELLE BINDERY MANAGER, YUKI 786.05 SHORTNESS OF BREATH 01/01/2014 MACY TAMAYO APRN T 786.05 SHORTNESS OF BREATH 01/01/2014 SHERRIE BLACKBURN MD 786.05 SHORTNESS OF BREATH 01/01/2014 RACHELLE BINDERY MANAGER, YUKI 786.05 SHORTNESS OF BREATH 01/01/2014 MARLENE ARREOLA PHD 786.05 SHORTNESS OF BREATH 01/01/2014 RACHELLE BINDERY MANAGER, YUKI 786.05 SHORTNESS OF BREATH 01/01/2014 MACY TAMAYO APRN T 786.05 SHORTNESS OF BREATH 01/01/2014 MACY TAMAYO APRN T 786.05 SHORTNESS OF BREATH 01/01/2014 RACHELLE MG, YUKI 786.05 SHORTNESS OF BREATH 02/03/2014 SHERRIE BLACKBURN MD 311 DEPRESSIVE DISORDER NOT ELSEWHERE CLASSIFIED 02/03/2014 SHERRIE BLACKBURN MD 311 DEPRESSIVE DISORDER NOT ELSEWHERE CLASSIFIED 02/03/2014 MACY TAMAYO APRN 311 DEPRESSIVE DISORDER NOT ELSEWHERE CLASSIFIED 02/03/2014 MARLENE ARREOLA PHD 311 DEPRESSIVE DISORDER NOT ELSEWHERE CLASSIFIED 02/03/2014 MARLENE ARREOLA PHD 311 DEPRESSIVE DISORDER NOT ELSEWHERE CLASSIFIED 02/03/2014 SHERRIE BLACKBURN MD 311 DEPRESSIVE DISORDER NOT ELSEWHERE CLASSIFIED 02/03/2014 SHERRIE BLACKBURN MD 311 DEPRESSIVE DISORDER NOT ELSEWHERE CLASSIFIED 02/03/2014 MOISES BARROSO APRN 311 DEPRESSIVE DISORDER NOT ELSEWHERE CLASSIFIED 02/03/2014 MACY TAMAYO APRN 311 DEPRESSIVE DISORDER NOT ELSEWHERE CLASSIFIED 02/03/2014 YUKI BUSH APRN 311 DEPRESSIVE DISORDER NOT ELSEWHERE CLASSIFIED 02/03/2014 MACY TAMAYO APRN 311 DEPRESSIVE DISORDER NOT ELSEWHERE CLASSIFIED 02/03/2014 SHERRIE BLACKBURN MD 311 DEPRESSIVE DISORDER NOT ELSEWHERE CLASSIFIED 02/03/2014 YUKI BUSH APRN 311 DEPRESSIVE DISORDER NOT ELSEWHERE CLASSIFIED 02/03/2014 MARLENE ARREOLA PHD 311 DEPRESSIVE DISORDER NOT ELSEWHERE CLASSIFIED 02/03/2014 YUKI BUSH APRN 311 DEPRESSIVE DISORDER NOT ELSEWHERE CLASSIFIED 02/03/2014 MACY TAMAYO APRN 311 DEPRESSIVE DISORDER NOT ELSEWHERE CLASSIFIED 02/03/2014 MACY TAMAYO APRN 311 DEPRESSIVE DISORDER NOT ELSEWHERE CLASSIFIED 02/03/2014 RACHELLE BINDERY MANAGER, YUKI 311 DEPRESSIVE DISORDER NOT ELSEWHERE CLASSIFIED 03/20/2014 MAXWELL PHD, MARLENE Dickey 296.90 MOOD DISORDER NOS 03/20/2014 MAXWELL PHD, MARLENE Dickey 296.90 MOOD DISORDER NOS 03/20/2014 SHERRIE BLACKBURN MD 296.90 MOOD DISORDER NOS 03/20/2014 SHERRIE BLACKBURN MD 296.90 MOOD DISORDER NOS 03/20/2014 DHARMESH MG, MOISES A 296.90 MOOD DISORDER NOS 03/20/2014 BELKIS SAURAV MACY T 296.90 MOOD DISORDER NOS 03/20/2014 RACHELLE BINDERY MANAGER, YUKI 296.90 MOOD DISORDER NOS 03/20/2014 BELKIS MG MACY T 296.90 MOOD DISORDER NOS 03/20/2014 SHERRIE BLACKBURN MD 296.90 MOOD DISORDER NOS 03/20/2014 RACHELLE BINDERY MANAGER, YUKI 296.90 MOOD DISORDER NOS 03/20/2014 MAXWELL NIETO, MARLENE Dickey 296.90 MOOD DISORDER NOS 03/20/2014 RACHELLE BINDERY MANAGER, YUKI 296.90 MOOD DISORDER NOS 03/20/2014 BELKIS MG MACY T 296.90 MOOD DISORDER NOS 03/20/2014 BELKIS MG MACY T 296.90 MOOD DISORDER NOS 03/20/2014 RACHELLE BINDERY MANAGER, YUKI 296.90 MOOD DISORDER NOS 04/15/2014 SHERRIE BLACKBURN MD 599.0 URINARY TRACT INFECTION SITE NOT SPECIFIED 04/15/2014 DHARMESH MG, MOISES A 599.0 URINARY TRACT INFECTION SITE NOT SPECIFIED 04/15/2014 MACY TAMAYO APRN T 599.0 URINARY TRACT INFECTION SITE NOT SPECIFIED 04/15/2014 RACHELLE MG YUKI 599.0 URINARY TRACT INFECTION SITE NOT SPECIFIED 04/15/2014 MACY TAMAYO APRN T 599.0 URINARY TRACT INFECTION SITE NOT SPECIFIED 04/15/2014 SHERRIE BLACKBURN MD 599.0 URINARY TRACT INFECTION SITE NOT SPECIFIED 04/15/2014 RACHELLETAMY MG YUKI 599.0 URINARY TRACT INFECTION SITE NOT SPECIFIED 04/15/2014 MAXWELL NIETO, MARLENE Dickey 599.0 URINARY TRACT INFECTION SITE NOT SPECIFIED 04/15/2014 RACHELLE BINDERY MANAGER, YUKI 599.0 URINARY TRACT INFECTION SITE NOT SPECIFIED 04/15/2014 MACY TAMAYO APRN T 599.0 URINARY TRACT INFECTION SITE NOT SPECIFIED 04/15/2014 MACY TAMAYO APRN T 599.0 URINARY TRACT INFECTION SITE NOT SPECIFIED 04/15/2014 RACHELLE BINDERY MANAGER, YUKI 599.0 URINARY TRACT INFECTION SITE NOT SPECIFIED 04/21/2014 DHARMESHMOISES CARLSON APRN A 611.71 MASTODYNIA 04/21/2014 DHARMESHMOISES CARLSON APRN A 703.0 NAIL INGROWN 04/21/2014 MACY TAMAYO APRN 611.71 MASTODYNIA 04/21/2014 MACY TAMAYO APRN 703.0 NAIL INGROWN 04/21/2014 YUKI BUSH APRN 611.71 MASTODYNIA 04/21/2014 RACHELLE SAURAV, YUKI 703.0 NAIL INGROWN 04/21/2014 MACY TAMAYO APRN 611.71 MASTODYNIA 04/21/2014 MACY TAMAYO APRN 703.0 NAIL INGROWN 04/21/2014 SHERRIE BLACKBURN MD 611.71 MASTODYNIA 04/21/2014 SHERRIE BLACKBURN MD 703.0 NAIL INGROWN 04/21/2014 RACHELLE MG, YUKI 611.71 MASTODYNIA 04/21/2014 RACHELLE MG, YUKI 703.0 NAIL INGROWN 04/21/2014 MAXWELL PHD, MARLENE Dickey 611.71 MASTODYNIA 04/21/2014 MAXWELL PHD, MARLENE Dickey 703.0 NAIL INGROWN 04/21/2014 RACHELLE MG, YUKI 611.71 MASTODYNIA 04/21/2014 RACHELLE MG, YUKI 703.0 NAIL INGROWN 04/21/2014 MACY TAMAYO APRN 611.71 MASTODYNIA 04/21/2014 MACY TAMAYO APRN 703.0 NAIL INGROWN 04/21/2014 MACY TAMAYO APRN 611.71 MASTODYNIA 04/21/2014 MACY TAMAYO APRN 703.0 NAIL INGROWN 04/21/2014 RACHELLE MG YUKI 611.71 MASTODYNIA 04/21/2014 RACHELLE MG YUKI 703.0 NAIL INGROWN 04/29/2014 Ot 717.7 04/29/2014 Ot 719.06 04/29/2014 Ot 727.51 04/29/2014 Ot 626.8 04/29/2014 Ot V76.12 04/29/2014 MACY TAMAYO Ot 214.9 04/29/2014 MACY TAMAYO Ot 278.01 04/29/2014 MACY TAMAYO Ot 686.1 04/29/2014 MACY TAMAYO Ot 782.3 05/08/2014 YUKI BUSH APRN V73.81 HPV SCREENING 05/08/2014 YUKI BUSH APRN V76.2 CERVICAL CANCER SCREENING (PAP SMEAR) 05/08/2014 MACY TAMAYO APRN V73.81 HPV SCREENING 05/08/2014 MCAY TAMAYO APRN V76.2 CERVICAL CANCER SCREENING (PAP SMEAR) 05/08/2014 SHERRIE BLACKBURN MD V73.81 HPV SCREENING 05/08/2014 SHERRIE BLACKBURN MD V76.2 CERVICAL CANCER SCREENING (PAP SMEAR) 05/08/2014 YUKI BUSH APRN V73.81 HPV SCREENING 05/08/2014 YUKI BUSH APRN V76.2 CERVICAL CANCER SCREENING (PAP SMEAR) 05/08/2014 MARLENE ARREOLA PHD V73.81 HPV SCREENING 05/08/2014 MARLENE ARREOLA PHD V76.2 CERVICAL CANCER SCREENING (PAP SMEAR) 05/08/2014 YUKI BUSH APRN V73.81 HPV SCREENING 05/08/2014 YUKI BUSH APRN V76.2 CERVICAL CANCER SCREENING (PAP SMEAR) 05/08/2014 MACY TAMAYO APRN V73.81 HPV SCREENING 05/08/2014 MACY TAMAYO APRN V76.2 CERVICAL CANCER SCREENING (PAP SMEAR) 05/08/2014 MACY TAMAYO APRN V73.81 HPV SCREENING 05/08/2014 MACY TAMAYO APRN V76.2 CERVICAL CANCER SCREENING (PAP SMEAR) 05/08/2014 YUKI BUSH APRN V73.81 HPV SCREENING 05/08/2014 YUKI BUSH APRN V76.2 CERVICAL CANCER SCREENING (PAP SMEAR) 05/09/2014 Ot 717.7 05/09/2014 Ot 719.06 05/09/2014 Ot 727.51 05/09/2014 Ot 626.8 05/09/2014 Ot V76.12 05/09/2014 MACY TAMAYO Ot 214.9 05/09/2014 MACY TAMAYO Ot 278.01 05/09/2014 MACY TAMAYO Ot 686.1 05/09/2014 MACY TAMAYO Ot 782.3 05/09/2014 DHARMESH, MOISESAFSHAN Turk APRN Ot 611.71 05/09/2014 MOISES BARROSO APRN Ot 611.71 05/20/2014 MACY TAMAYO APRN 728.85 SPASM OF MUSCLE 05/20/2014 SHERRIE BLACKBURN MD 728.85 SPASM OF MUSCLE 05/20/2014 RACHELLEYUKI MORELOS APRN 728.85 SPASM OF MUSCLE 05/20/2014 MAXWELL NIETO, MARLENE Dickey 728.85 SPASM OF MUSCLE 05/20/2014 YUKI BUSH APRN 728.85 SPASM OF MUSCLE 05/20/2014 MACY TAMAYO APRN 728.85 SPASM OF MUSCLE 05/20/2014 MACY TAMAYO APRN 728.85 SPASM OF MUSCLE 05/20/2014 YUKI BUSH APRN 728.85 SPASM OF MUSCLE 06/06/2014 YUKI BUSH APRN 525.9 UNSPECIFIED DISORDER OF THE TEETH AND SUPPORTING STRUCTURES 06/06/2014 MARLENE ARREOLA PHD 525.9 UNSPECIFIED DISORDER OF THE TEETH AND SUPPORTING STRUCTURES 06/06/2014 YUKI BUSH APRN 525.9 UNSPECIFIED DISORDER OF THE TEETH AND SUPPORTING STRUCTURES 06/06/2014 MACY TAMAYO APRN 525.9 UNSPECIFIED DISORDER OF THE TEETH AND SUPPORTING STRUCTURES 06/06/2014 MACY TAMAYO APRN 525.9 UNSPECIFIED DISORDER OF THE TEETH AND SUPPORTING STRUCTURES 06/06/2014 YUKI BUSH APRN 525.9 UNSPECIFIED DISORDER OF THE TEETH AND SUPPORTING STRUCTURES 07/11/2014 YUKI BUSH APRN 296.32 MO DEPRESSIVE RECURRENT MODERATE 07/11/2014 MACY TAMAYO APRN 296.32 MO DEPRESSIVE RECURRENT MODERATE 07/11/2014 MACY TAMAYO APRN 296.32 MO DEPRESSIVE RECURRENT MODERATE 07/11/2014 YUKI BUSH APRN 296.32 MO DEPRESSIVE RECURRENT MODERATE 07/16/2014 MACY TAMAYO APRN 461.9 SINUSITIS ACUTE 07/16/2014 MACY TAMAYO APRN 461.9 SINUSITIS ACUTE 07/16/2014 YUKI BUSH APRN 461.9 SINUSITIS ACUTE 09/23/2014 YUKI BUSH APRN 300.00 AN ANXIETY UNSPEC 09/23/2014 YUKI BUSH APRN 307.42 PERSISTENT DISORDER OF INITIATING OR MAINTAINING SLEEP 04/08/2016 Ot 626.8 MENSTRUAL DISORDER NEC 04/08/2016 Ot V76.12 OTH SCREEN MAMMO-MALIGN NEOPLASM OF SANDRA 04/08/2016 MACY TAMAYO [employer] F[employer]OR REFINISHER Ot 214.9 LIPOMA NOS 04/08/2016 MACY TAMAYO [employer] REFINISHER Ot 278.01 MORBID OBESITY 04/08/2016 MACY TAMAYO [employer] REFINISHER Ot 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 04/08/2016 MACY TAMAYO [employer] REFINISHER Ot 782.3 EDEMA 04/08/2016 MOISES BARROSO BINDERY MANAGER Ot 611.71 MASTODYNIA 04/08/2016 MACY TAMAYO [employer] REFINISHER Ot 214.9 LIPOMA NOS 04/08/2016 MACY TAMAYO [employer] REFINISHER Ot 278.01 MORBID OBESITY 04/08/2016 MACY TAMAYO [employer] REFINISHER Ot 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 04/08/2016 MACY TAMAYO [employer] REFINISHER Ot 782.3 EDEMA 04/08/2016 HENRY THOMPSON [employer] REFINISHER Ot S83.281A OTH TEAR OF LAT MENSC, CURRENT INJURY, R 04/08/2016 HENRY THOMPSON [employer] REFINISHER Ot X58.XXXA EXPOSURE TO OTHER SPECIFIED FACTORS, INI 04/08/2016 HENRY THOMPSON [employer] REFINISHER Ot Y99.8 OTHER EXTERNAL CAUSE STATUS 04/08/2016 HENRY THOMPSON [employer] REFINISHER Ot S83.281A OTH TEAR OF LAT MENSC, CURRENT INJURY, R 04/08/2016 HENRY THOMPSON [employer] REFINISHER Ot X58.XXXA EXPOSURE TO OTHER SPECIFIED FACTORS, INI 04/08/2016 HENRY THOMPSON [employer] REFINISHER Ot Y99.8 OTHER EXTERNAL CAUSE STATUS 04/09/2016 HENRY THOMPSON [employer] F[employer] REFINISHER Ot S83.281A OTH TEAR OF LAT MENSC, CURRENT INJURY, R 04/09/2016 HENRY THOMPSON [employer] REFINISHER Ot X58.XXXA EXPOSURE TO OTHER SPECIFIED FACTORS, INI 04/09/2016 HENRY THOMPSON [employer] REFINISHER Ot Y99.8 OTHER EXTERNAL CAUSE STATUS 04/11/2016 HENRY THOMPSON [employer] REFINISHER Ot S83.281A OTH TEAR OF LAT MENSC, CURRENT INJURY, R 04/11/2016 HENRY THOMPSON [employer] REFINISHER Ot X58.XXXA EXPOSURE TO OTHER SPECIFIED FACTORS, INI 04/11/2016 HENRY THOMPSON [employer] REFINISHER Ot Y99.8 OTHER EXTERNAL CAUSE STATUS 04/15/2016 Ot 626.8 MENSTRUAL DISORDER NEC 04/15/2016 Ot V76.12 OTH SCREEN MAMMO-MALIGN NEOPLASM OF SANDRA 04/15/2016 BELKISMACY Claudine [employer] REFINISHER Ot 214.9 LIPOMA NOS 04/15/2016 BELKISMACY [employer] REFINISHER Ot 278.01 MORBID OBESITY 04/15/2016 BELKIS MACY Claudine [employer] REFINISHER Ot 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 04/15/2016 BELKIS MACY Claudine [employer] REFINISHER Ot 782.3 EDEMA 04/15/2016 MOISES BARROSO Burke BINDERY MANAGER Ot 611.71 MASTODYNIA 04/15/2016 HENRY THOMPSON Ot S83.281A OTH TEAR OF LAT MENSC, CURRENT INJURY, R 04/15/2016 HENRY THOMPSONP Ot X58.XXXA EXPOSURE TO OTHER SPECIFIED FACTORS, INI 04/15/2016 HENRY THOMPSON Ot Y99.8 OTHER EXTERNAL CAUSE STATUS 04/15/2016 HENRY THOMPSONP Ot S83.281A OTH TEAR OF LAT MENSC, CURRENT INJURY, R 04/15/2016 HENRY THOMPSON [employer] REFINISHER Ot X58.XXXA EXPOSURE TO OTHER SPECIFIED FACTORS, INI 04/15/2016 HENRY THOMPSON Ot Y99.8 OTHER EXTERNAL CAUSE STATUS 04/15/2016 BELKIS MACY Claudine [employer] REFINISHER Ot 214.9 LIPOMA NOS 04/15/2016 BELKIS MACY Claudine [employer] REFINISHER Ot 278.01 MORBID OBESITY 04/15/2016 BELKIS MACY Claudine [employer] REFINISHER Ot 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 04/15/2016 BELKIS MACY Claudine [employer] REFINISHER Ot 782.3 EDEMA 04/16/2016 BELKIS MACY Claudine [employer] REFINISHER Ot 214.9 LIPOMA NOS 04/16/2016 MACY TAMAYO [employer] REFINISHER Ot 278.01 MORBID OBESITY 04/16/2016 BELKIS MACY Claudine [employer] REFINISHER Ot 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 04/16/2016 BELKIS MACY Claudine [employer] REFINISHER Ot 782.3 EDEMA 04/16/2016 HENRY THOMPSON [employer] F[employer] REFINISHER Ot S83.281A OTH TEAR OF LAT MENSC, CURRENT INJURY, R 04/16/2016 HENRY THOMPSON [employer] REFINISHER Ot X58.XXXA EXPOSURE TO OTHER SPECIFIED FACTORS, INI 04/16/2016 HENRY THOMPSON [employer] REFINISHER Ot Y99.8 OTHER EXTERNAL CAUSE STATUS 06/29/2017 MACY TAMAYO [employer] REFINISHER Ot 214.9 LIPOMA NOS 06/29/2017 MACY TAMAYO [employer] REFINISHER Ot 278.01 MORBID OBESITY 06/29/2017 MACY TAMAYO [employer] REFINISHER Ot 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 06/29/2017 MACY TAMAYO [employer] REFINISHER Ot 782.3 EDEMA 06/29/2017 MOISES BARROSO APRN Ot 611.71 MASTODYNIA 06/29/2017 HENRY THOMPSON [employer] REFINISHER Ot S83.281A OTH TEAR OF LAT MENSC, CURRENT INJURY, R 06/29/2017 HENRY THOMPSON [employer] REFINISHER Ot X58.XXXA EXPOSURE TO OTHER SPECIFIED FACTORS, INI 06/29/2017 HENRY THOMPSON [employer] F[employer] REFINISHER Ot Y99.8 OTHER EXTERNAL CAUSE STATUS 06/30/2017 KINGSLEY SADLER APRN Ot Z12.31 ENCNTR SCREEN MAMMOGRAM FOR MALIGNANT NE Procedures Code Description [place] [address] MAMMOGRAM, SCREENING 03/29/2012 60506 CULTURE UROGENITAL 03/29/2012 22328 GC/CHLAM PROBE (STATE) 03/29/2012 21915 MICROALBUMIN 04/04/2012 45891 A1C (IN-HOUSE) 04/04/2012 04486 MICRO ALBUMIN-IN HOUSE 04/04/2012 43007 ROUTINE VENIPUNCTURE 06/26/2012 11219 ESR/SED RATE 06/26/2012 36694 CMP 06/26/2012 19087 LIPID PANEL 06/26/2012 95542 TSH 06/26/2012 52124 CBC 06/26/2012 62348 PTT (THROMBOPLASTIN TIME, PARTIAL) 06/26/2012 87795 CRP 06/26/2012 ANAANA OPAL ANALYZER (SCREEN) 06/26/2012 05979 A1C (IN-HOUSE) 07/04/2012 Internal Laina Sherman 07/05/2012 38325 ROUTINE VENIPUNCTURE 08/08/2012 51971 CMP 08/08/2012 1846403 GFR CALC (RESULT ONLY) 08/08/2012 12143 CBC 08/08/2012 68652 CRP 08/08/2012 99727 CPK 08/08/2012 66669 ESR/SED RATE 08/08/2012 78410 XRAY CHEST 2 VIEW 08/10/2012 39998 UA W/MICROSCOPY 08/10/2012 97151 CARDIOLIPIN ANTIBODY 08/10/2012 45728 ROUTINE VENIPUNCTURE 08/20/2012 92188 CMP 08/20/2012 9329309 GFR CALC (RESULT ONLY) 08/20/2012 93421 CPK 08/20/2012 18302 HEPATITIS PROFILE 08/20/2012 32146 ROUTINE VENIPUNCTURE 10/17/2012 00735 A1C (IN-HOUSE) 10/17/2012 92248 CMP 10/18/2012 00913 CBC 10/18/2012 19115 A1C (IN-HOUSE) 01/23/2013 51175 THERAPUTIC INJ SQ/IM 02/07/2013 43569 CBC 02/07/2013 44492 CMP 02/07/2013 6591944 GFR CALC (RESULT ONLY) 02/07/2013 98201 ROUTINE VENIPUNCTURE 06/14/2013 51130 MYOGLOBIN 06/14/2013 99243 TSH 06/14/2013 33067 A1C (IN-HOUSE) 06/14/2013 13217 CBC 06/14/2013 44578 CMP 06/14/2013 9661184 GFR CALC (RESULT ONLY) 06/14/2013 48300 A1C (IN-HOUSE) 08/09/2013 83393 ROUTINE VENIPUNCTURE 09/09/2013 33572 CPK 09/09/2013 51462 MYOGLOBIN 09/09/2013 90691 TSH 09/09/2013 47136 CBC 09/09/2013 16526 CMP 09/09/2013 13505 MAGNESIUM 09/09/2013 1096090 GFR CALC (RESULT ONLY) 09/09/2013 44112 US SOFT TISSUE (SPECIFY LOCATION) 10/14/2013 54172 OXIMETRY 10/14/2013 75120 ROUTINE VENIPUNCTURE 11/27/2013 80867 CMP 11/27/2013 40971 MYOGLOBIN 11/27/2013 25979 CBC 11/27/2013 18015 SED/ESR RATE RML 11/27/2013 52609 MICRO ALBUMIN-IN HOUSE 11/27/2013 11604 A1C (IN-HOUSE) 11/27/2013 SHERRIE MENA 01/01/2014 39507 ROUTINE VENIPUNCTURE 03/04/2014 76431 A1C (IN-HOUSE) 03/04/2014 64961 CBC 03/04/2014 2435776 GFR CALC (RESULT ONLY) 03/04/2014 32427 CMP 03/04/2014 96231 PSYCH DIAGNOSTIC EVALUATION 03/20/2014 29488 PSYTX PT&/FAMILY 45 MINUTES 04/02/2014 06850 UA W/ CULTURE IF INDICATED 04/15/2014 04476 CULTURE URINE 04/17/2014 24606 MAMMOGRAM DX, MARIANA 04/22/2014 20781 REMOVAL OF NAIL BED 05/06/2014 64521 PAP SMEAR 05/12/2014 Q0091 PAP SMEAR OBTAIN SMEAR 05/12/2014 15459 ROUTINE VENIPUNCTURE 05/20/2014 70870 BMP 05/20/2014 73403 MAGNESIUM 05/20/2014 61193 PSYTX PT&/FAMILY 30 MINUTES 05/26/2014 74423 ROUTINE VENIPUNCTURE 09/08/2014 36402 A1C (RML) 09/08/2014 7477922 GFR CALC (RESULT ONLY) 09/08/2014 01139 CMP 09/08/2014 06024 LIPID PANEL 09/08/2014 Results Test Result Range CBC With Differential/Platelet - 01/29/16 09:39 WBC 8.7 x10E3/uL 3.4-10.8 RBC 5.05 x10E6/uL 3.77-5.28 Hemoglobin 13.6 g/dL 11.1-15.9 Hematocrit 40.2 % 34.0-46.6 MCV 80 fL 79-97 MCH 26.9 pg 26.6-33.0 MCHC 33.8 g/dL 31.5-35.7 RDW 14.2 % 12.3-15.4 Platelets 240 x10E3/uL 150-379 Neutrophils 66 % Lymphs 26 % Monocytes 7 % Eos 1 % Basos 0 % Neutrophils (Absolute) 5.6 x10E3/uL 1.4-7.0 Lymphs (Absolute) 2.3 x10E3/uL 0.7-3.1 Monocytes(Absolute) 0.6 x10E3/uL 0.1-0.9 Eos (Absolute) 0.1 x10E3/uL 0.0-0.4 Baso (Absolute) 0.0 x10E3/uL 0.0-0.2 Immature Granulocytes 0 % Immature Grans (Abs) 0.0 x10E3/uL 0.0-0.1 Comp. Metabolic Panel (14) - 01/29/16 09:39 Glucose, Serum 213 mg/dL 65-99 BUN 11 mg/dL 6-24 Creatinine, Serum 0.91 mg/dL 0.57-1.00 eGFR If NonAfricn Am 74 mL/min/1.73 >59 eGFR If Africn Am 85 mL/min/1.73 >59 BUN/Creatinine Ratio 12 9-23 Sodium, Serum 136 mmol/L 134-144 Potassium, Serum 4.1 mmol/L 3.5-5.2 Chloride, Serum 95 mmol/L 97-108 Carbon Dioxide, Total 25 mmol/L 18-29 Calcium, Serum 9.4 mg/dL 8.7-10.2 Protein, Total, Serum 7.1 g/dL 6.0-8.5 Albumin, Serum 3.9 g/dL 3.5-5.5 Globulin, Total 3.2 g/dL 1.5-4.5 A/G Ratio 1.2 1.1-2.5 Bilirubin, Total 0.4 mg/dL 0.0-1.2 Alkaline Phosphatase, S 87 IU/L 39-117 AST (SGOT) 19 IU/L 0-40 ALT (SGPT) 28 IU/L 0-32 Magnesium, Serum - 01/29/16 09:39 Magnesium, Serum 1.8 mg/dL 1.6-2.3 CBC With Differential/Platelet - 09/08/16 15:08 WBC 6.0 x10E3/uL 3.4-10.8 RBC 4.19 x10E6/uL 3.77-5.28 Hemoglobin 11.6 g/dL 11.1-15.9 Hematocrit 35.1 % 34.0-46.6 MCV 84 fL 79-97 MCH 27.7 pg 26.6-33.0 MCHC 33.0 g/dL 31.5-35.7 RDW 14.9 % 12.3-15.4 Platelets 241 x10E3/uL 150-379 Neutrophils 69 % Lymphs 23 % Monocytes 7 % Eos 1 % Basos 0 % Neutrophils (Absolute) 4.1 x10E3/uL 1.4-7.0 Lymphs (Absolute) 1.4 x10E3/uL 0.7-3.1 Monocytes(Absolute) 0.4 x10E3/uL 0.1-0.9 Eos (Absolute) 0.1 x10E3/uL 0.0-0.4 Baso (Absolute) 0.0 x10E3/uL 0.0-0.2 Immature Granulocytes 0 % Immature Grans (Abs) 0.0 x10E3/uL 0.0-0.1 Comp. Metabolic Panel (14) - 09/08/16 15:08 Glucose, Serum 126 mg/dL 65-99 BUN 11 mg/dL 6-24 Creatinine, Serum 1.07 mg/dL 0.57-1.00 eGFR If NonAfricn Am 61 mL/min/1.73 >59 eGFR If Africn Am 70 mL/min/1.73 >59 BUN/Creatinine Ratio 10 9-23 Sodium, Serum 138 mmol/L 134-144 Potassium, Serum 4.1 mmol/L 3.5-5.2 Chloride, Serum 98 mmol/L 96-106 Carbon Dioxide, Total 23 mmol/L 18-29 Calcium, Serum 9.4 mg/dL 8.7-10.2 Protein, Total, Serum 6.4 g/dL 6.0-8.5 Albumin, Serum 4.0 g/dL 3.5-5.5 Globulin, Total 2.4 g/dL 1.5-4.5 A/G Ratio 1.7 1.2-2.2 Bilirubin, Total 0.3 mg/dL 0.0-1.2 Alkaline Phosphatase, S 57 IU/L 39-117 AST (SGOT) 17 IU/L 0-40 ALT (SGPT) 20 IU/L 0-32 B-Type Natriuretic Peptide - 09/08/16 15:08 B-Type Natriuretic Peptide 7.4 pg/mL 0.0-100.0 A1C - 06/22/17 11:33 HEMOGLOBIN A1c 8.2 % of total Hgb <5.7 SUREPATH PAP AND HPV mRNA E6/E7 - 06/22/17 12:32 CLINICAL INFORMATION: NRG LMP: NRG PREV. PAP: NRG PREV. BX: NONE NRG SOURCE: Cervix NRG STATEMENT OF ADEQUACY: NRG INTERPRETATION/RESULT: NRG DATA MODELING SPECIALIST: KEERTHI HPV mRNA E6/E7, SUREPATH VIAL Not Detected NOT DETECTED REVIEW DATA MODELING SPECIALIST: KEERTHI LIPID PANEL - 06/23/17 08:09 CHOLESTEROL, TOTAL 178 mg/dL <200 HDL CHOLESTEROL 68 mg/dL >50 TRIGLYCERIDES 86 mg/dL <150 LDL-CHOLESTEROL 92 mg/dL (calc) NRG CHOL/HDLC RATIO 2.6 (calc) <5.0 NON HDL CHOLESTEROL 110 mg/dL (calc) <130 CULTURE, URINE - 07/25/17 13:10 CULTURE, URINE, ROUTINE SEE NOTE NRG Encounters ACCT No. Visit Date/Time Discharge Status Pt. Type Provider Facility Loc./Unit Complaint [id number] 09/23/2014 09:21:00 09/23/2014 23:59:59 CLS Outpatient YUKI BUSH APRN [id number] 09/08/2014 09:50:00 09/08/2014 23:59:59 CLS Outpatient MACY TAMAYO APRN [id number] 09/03/2014 17:57:00 09/03/2014 23:59:59 CLS Outpatient MACY TAMAYO APRN [id number] 07/11/2014 16:23:00 07/11/2014 23:59:59 CLS Outpatient YUKI BUSH APRN [id number] 06/30/2014 10:45:00 06/30/2014 23:59:59 CLS Outpatient MAXWELL NIETO, MARLENE Dickey [id number] 05/26/2014 10:32:00 05/26/2014 23:59:59 CLS Outpatient SHERRIE BLACKBURN MD [id number] 05/20/2014 14:22:00 05/20/2014 23:59:59 CLS Outpatient MACY TAMAYO APRN [id number] 05/08/2014 13:58:00 05/08/2014 23:59:59 CLS Outpatient YUKI BUSH APRN [id number] 05/08/2014 13:58:00 05/08/2014 23:59:59 CLS Outpatient YUKI BUSH APRN [id number] 05/06/2014 15:47:00 05/06/2014 23:59:59 CLS Outpatient MACY TAMAYO APRN [id number] 04/21/2014 10:30:00 04/21/2014 23:59:59 CLS Outpatient MOISES BARROSO APRN [id number] 04/15/2014 15:36:00 04/15/2014 23:59:59 CLS Outpatient SHERRIE BLACKBURN MD [id number] 04/04/2014 09:55:00 04/04/2014 23:59:59 CLS Outpatient SHERRIE BLACKBURN MD [id number] 04/02/2014 13:01:00 04/02/2014 23:59:59 CLS Outpatient MARLENE ARREOLA PHD [id number] 03/20/2014 14:03:00 03/20/2014 23:59:59 CLS Outpatient MAXWELL NIETO, MARLENE Dickey [id number] 03/19/2014 14:54:00 03/19/2014 23:59:59 CLS Outpatient MACY TAMAYO APRN [id number] 03/04/2014 11:36:00 03/04/2014 23:59:59 CLS Outpatient SHERRIE BLACKBURN MD [id number] 02/03/2014 15:40:00 02/03/2014 23:59:59 CLS Outpatient SHERRIE BLACKBURN MD [id number] 01/01/2014 15:04:00 01/01/2014 23:59:59 CLS Outpatient MACY TAMAYO APRN [id number] 11/27/2013 15:58:00 11/27/2013 23:59:59 CLS Outpatient MACY TAMAYO APRN [id number] 10/14/2013 15:28:00 10/14/2013 23:59:59 CLS Outpatient MACY TAMAYO APRN [id number] 09/09/2013 08:45:00 09/09/2013 23:59:59 CLS Outpatient MACY TAMAYO APRN [id number] 08/09/2013 16:21:00 08/09/2013 23:59:59 CLS Outpatient MACY TAMAYO APRN [id number] 06/14/2013 11:12:00 06/14/2013 23:59:59 CLS Outpatient MACY TAMAYO APRN [id number] 03/13/2013 15:49:00 03/13/2013 23:59:59 CLS Outpatient MACY TAMAYO APRN [id number] 02/11/2013 15:24:00 02/11/2013 23:59:59 CLS Outpatient MACY TAMAYO APRN [id number] 09/04/2012 15:40:00 09/04/2012 23:59:59 CLS Outpatient MACY TAMAYO APRN [id number] 08/20/2012 08:50:00 08/20/2012 23:59:59 CLS Outpatient [id number] 08/08/2012 14:49:00 08/08/2012 23:59:59 CLS Outpatient LAINA SHERMAN MD [id number] 07/04/2012 18:16:00 07/04/2012 23:59:59 CLS Outpatient MACY TAMAYO APRN [id number] 06/26/2012 09:06:00 06/26/2012 23:59:59 CLS Outpatient BELKIS MG MACY Claudine [id number] 06/20/2012 17:28:00 06/20/2012 23:59:59 CLS Outpatient [id number] 04/18/2012 15:54:00 04/18/2012 23:59:59 CLS Outpatient [id number] 02/29/2012 18:24:00 02/29/2012 23:59:59 CLS Outpatient LINDSAY STRONG DO [id number] 02/07/2013 10:16:00 Document Registration [id number] 01/23/2013 15:37:00 Document Registration [id number] 10/17/2012 15:48:00 Document Registration [id number] 09/09/2016 08:41:00 Document Registration [id number] 09/09/2016 13:05:00 Document Registration [id number] 01/30/2016 13:05:00 Document Registration [id number] 12/14/2017 15:00:00 12/14/2017 23:59:59 CLS Outpatient MACY TAMAYO APRN [facility] [place] [id number] 07/25/2017 12:20:00 Document Registration [id number] 06/23/2017 08:00:00 Document Registration [id number] 06/22/2017 10:40:00 Document Registration [id number] 06/29/2017 08:47:00 06/29/2017 23:59:59 CLS Outpatient KINGSLEY SADLER APRN [facility] SCREENING [id number] 04/08/2016 09:02:00 04/08/2016 23:59:59 CLS Outpatient HENRY THOMPSON [facility] RAD [id number] 04/29/2014 12:24:00 04/29/2014 23:59:59 CLS Outpatient MOISES BARROSO APRN [facility] RAD BILATERAL BREAST PAIN [id number] 10/25/2013 15:33:00 10/25/2013 23:59:59 CLS Outpatient MACY TAMAYO [facility] RAD RT/LFT BUTTOCKS LIPOMA [id number] 04/29/2014 12:22:00 Document Registration [id number] 11/19/2010 10:13:00 Document Registration [id number] 11/12/2010 20:18:00 Document Registration [id number] 08/27/2010 15:32:00 Document Registration
[2018-02-03] MEDS ORDERED: ONDANSETRON 4 MG/2 ML (SDV) Z0FRAN IVP ONE ×2 (00:15→02:00)
[2018-02-03 00:37] LABS: BASOPHILS % (AUTO) 1 % (0-10); EOSINOPHILS % (AUTO) 1 % (0-10); HEMATOCRIT 43 % (35-52); HEMOGLOBIN 14.9 G/DL (11.5-16.0); LYMPHOCYTES # (AUTO) 1.1 X 10^3 (1.0-4.0); LYMPHOCYTES % (AUTO) 16 % (12-44); MEAN CORPUSCULAR HEMOGLOBIN 27 PG (25-34); MEAN CORPUSCULAR HGB CONC 35 G/DL (32-36); MEAN CORPUSCULAR VOLUME 76 FL (80-99); MONOCYTES # (AUTO) 0.7 X 10^3 (0.0-1.0); MONOCYTES % (AUTO) 11 % (0-12); NEUTROPHILS # (AUTO) 4.8 X 10^3 (1.8-7.8); NEUTROPHILS % (AUTO) 72 % (42-75); PLATELET COUNT 177 10^3/uL (130-400); RED BLOOD COUNT 5.62 10^6/uL (4.35-5.85); RED CELL DISTRIBUTION WIDTH 14.7 % (10.0-14.5); WHITE BLOOD COUNT 6.6 10^3/uL (4.3-11.0)
--- NOTE | 2018-02-03 00:43 | ED General ---
General Chief Complaint: General Problems/Pain Stated Complaint: NAUSEA,ESPINAL,LEFT EYE NOT GETTING BETTER Nursing Triage Note: pt verbalized shooting pain in rt calf, started today. pt also stated she has had nausea alll day but it has worsened in last hour. pt states was seen at eye drs office today, treatd with Lotemax eye drops, eye is inflammed and painful. Nursing Sepsis Screen: No Definite Risk Source of Information: Patient Exam Limitations: No Limitations History of Present Illness Date Seen by Provider: Feb 03, 2018 Time Seen by Provider: 00:10 Initial Comments Here with complaint of fever, left eye pain and left-sided face pain and vomiting. Overall not feeling well. Has been seen and treated with eyedrops Dr. Raya since Monday. Pain in her eyes worse. Does have history of myositis and is chronically on oral steroids. Notes that the eye is now having some purulent drainage. Noted swelling on the left side of the face. Also has chronic pain in the legs that she says is less concerning in her main complaint is not feeling well in the eye and face pain. Timing/Duration: 4-5 Days, Getting Worse Severity: Moderate Associated Systoms: No Chest Pain, No Cough; Fever/Chills, Loss of Appetite, Nausea/Vomiting; No Shortness of Air; Weakness Allergies and Home Medications Allergies Coded Allergies: latex (Verified Allergy, Unknown, 02/03/18) sertraline (Verified Allergy, Unknown, 02/03/18) aspirin (Unverified Adverse Reaction, Severe, 11/12/10) Home Medications Nadolol 40 Mg Tablet, 1 TAB PO DAILY, (Reported) Patient Home Medication List Home Medication List Reviewed: Yes Review of Systems Review of Systems Constitutional: see HPI, fever, malaise, weakness EENTM: blurred vision, eye pain, tearing, nose congestion; No throat pain Respiratory: No cough, No short of breath Cardiovascular: no symptoms reported Gastrointestinal: No abdominal pain; nausea, vomiting Genitourinary: no symptoms reported Musculoskeletal: see HPI, joint pain, muscle pain Skin: change in color; No lesions Psychiatric/Neurological: Denies Headache; Weakness Hematologic/Lymphatic: No Symptoms Reported All Other Systems Reviewed Negative Unless Noted: Yes Past Ifixpzi-Fqktpx-Sphlap Hx Past Med/Social Hx: Reviewed Nursing Past Med/Soc Hx Patient Social History Alcohol Use: Denies Use Recreational Drug Use: No Smoking Status: Never a Smoker Recent Foreign Travel: No Contact w/Someone Who Travel: No Recent Infectious Disease Expo: No Past Medical History Surgeries: Yes Section Respiratory: Yes Cardiac: Yes Hypertension Genitourinary: No Gastrointestinal: Yes Gastroesophageal Reflux Musculoskeletal: Yes (myositis) Psychosocial: Yes Anxiety Family Medical History Reviewed Nursing Family Hx No Pertinent Family Hx Physical Exam Vital Signs Vital Signs - First Documented 02/02/18 23:43 Temp 100.9 Pulse 110 Resp 18 B/P (MAP) 134/80 (98) Pulse Ox 97 O2 Delivery Room Air Capillary Refill : Less Than 3 Seconds Height, Weight, BMI Height: 5'7.00" Weight: 150lbs. oz. 68.362819rm; BMI Method:Estimated General Appearance: WD/WN, Obese HEENT: PERRL/EOMI, Other (left eye with injected conjunctiva with some purulent drainage. Swelling noted to the upper and lower lid as well as the left side of the face around the cheek and forehead with mild tenderness to the maxillary sinus area. Bilateral nasal nasal congestion with moderate erythema and clear rhinorrhea) Neck: Normal Inspection, Non Tender, Supple Respiratory: Lungs Clear, Normal Breath Sounds Cardiovascular: No Murmur, Tachycardia Gastrointestinal: Non Tender, Soft Back: Normal Inspection, No CVA Tenderness, No Vertebral Tenderness Extremity: Normal Inspection, Normal Range of Motion Neurologic/Psychiatric: Alert, Oriented x3 Skin: Warm/Dry, Erythema (left facial and forehead) Focused Exam Lactate Level 02/03/18 00:28: Lactic Acid Level 1.69 Lactic Acid Level Laboratory Tests Test 02/03/18 00:28 Lactic Acid Level 1.69 MMOL/L (0.50-2.00) Progress/Results/Core Measures Suspected Sepsis Recent Fever Within 48 Hours: No Infection Criteria Present: None New/Unexplained Altered Menta: No Sepsis Screen: No Definite Risk SIRS Temperature:100.9 Pulse: 110 Respiratory Rate: 18 Laboratory Tests 02/03/18 00:28: White Blood Count 6.6 Blood Pressure 134 /80 Mean: 98 02/03/18 00:28: Lactic Acid Level 1.69 Laboratory Tests 02/03/18 00:28: Creatinine 1.17, Platelet Count 177 Results/Orders Lab Results Laboratory Tests Test 02/03/18 00:28 02/03/18 00:59 Range/Units White Blood Count 6.6 4.3-11.0 10^3/uL Red Blood Count 5.62 4.35-5.85 10^6/uL Hemoglobin 14.9 11.5-16.0 G/DL Hematocrit 43 35-52 % Mean Corpuscular Volume 76 L 80-99 FL Mean Corpuscular Hemoglobin 27 25-34 PG Mean Corpuscular Hemoglobin Concent 35 32-36 G/DL Red Cell Distribution Width 14.7 H 10.0-14.5 % Platelet Count 177 130-400 10^3/uL Mean Platelet Volume 10.0 7.4-10.4 FL Neutrophils (%) (Auto) 72 42-75 % Lymphocytes (%) (Auto) 16 12-44 % Monocytes (%) (Auto) 11 0-12 % Eosinophils (%) (Auto) 1 0-10 % Basophils (%) (Auto) 1 0-10 % Neutrophils # (Auto) 4.8 1.8-7.8 X 10^3 Lymphocytes # (Auto) 1.1 1.0-4.0 X 10^3 Monocytes # (Auto) 0.7 0.0-1.0 X 10^3 Eosinophils # (Auto) 0.0 0.0-0.3 10^3/uL Basophils # (Auto) 0.0 0.0-0.1 10^3/uL Sodium Level 128 L 135-145 MMOL/L Potassium Level 4.4 3.6-5.0 MMOL/L Chloride Level 92 L 98-107 MMOL/L Carbon Dioxide Level 24 21-32 MMOL/L Anion Gap 12 5-14 MMOL/L Blood Urea Nitrogen 18 7-18 MG/DL Creatinine 1.17 0.60-1.30 MG/DL Estimat Glomerular Filtration Rate 59 BUN/Creatinine Ratio 15 Glucose Level 294 H 70-105 MG/DL Lactic Acid Level 1.69 0.50-2.00 MMOL/L Calcium Level 9.9 8.5-10.1 MG/DL C-Reactive Protein High Sensitivity 0.88 H 0.00-0.50 MG/DL Urine Color BELEN H Urine Clarity VERY CLOUDY H Urine pH 6 5-9 Urine Specific [place] 1.020 1.016-1.022 Urine Protein 2+ H NEGATIVE Urine Glucose (UA) 2+ H NEGATIVE Urine Ketones 1+ H NEGATIVE Urine Nitrite NEGATIVE NEGATIVE Urine Bilirubin NEGATIVE NEGATIVE Urine Urobilinogen NORMAL NORMAL MG/DL Urine Leukocyte Esterase 3+ H NEGATIVE Urine RBC (Auto) 4+ H NEGATIVE Urine RBC 10-25 H /HPF Urine WBC 50-100 H /HPF Urine Squamous Epithelial Cells 5-10 /HPF Urine Crystals NONE /LPF Urine Bacteria MODERATE H /HPF Urine Casts NONE /LPF Urine Mucus MODERATE H /LPF Urine Trichomonas LARGE H /HPF Urine Culture Indicated YES My Orders Orders - LIA TORRES MD Basic Metabolic Panel (02/03/18 00:10) Cbc With Automated Diff (02/03/18 00:10) Hs C Reactive Protein (02/03/18 00:10) Ondansetron Injection (Zofran Injectio (02/03/18 00:15) Ns Iv 1000 Ml (Sodium Chloride 0.9%) (02/03/18 00:10) Saline Lock/Iv-Start (02/03/18 00:10) Ketorolac Injection (Toradol Injection) (02/03/18 00:10) Ua Culture If Indicated (02/03/18 00:23) Lactic Acid Analyzer (02/03/18 00:23) Blood Culture (02/03/18 00:23) Urine Culture (02/03/18 00:59) Ceftriaxone For Iv Use (Rocephin For I (02/03/18 01:30) Metronidazole Tablet (Flagyl Tablet) (02/03/18 01:45) Fentanyl Injection (Sublimaze Injection (02/03/18 01:58) Ondansetron Injection (Zofran Injectio (02/03/18 02:00) Rx-Tobramycin/Dexam. (Rx-Tobradex Op Hilda (02/03/18 02:24) Medications Given in ED Current Medications Medications Dose Ordered Sig/Edel Route Start Time Stop Time Status Last Admin Dose Admin Ceftriaxone Sodium 1000 mg/ Sodium Chloride 60 ml @ 100 mls/hr ONCE ONCE IV 02/03/18 01:30 02/03/18 02:05 DC 02/03/18 01:30 100 MLS/HR Metronidazole 2,000 mg ONCE ONCE PO 02/03/18 01:45 02/03/18 01:46 DC 02/03/18 01:30 2,000 MG Ondansetron HCl 4 mg ONCE ONCE IVP 02/03/18 00:15 02/03/18 00:16 DC 02/03/18 00:20 4 MG Ondansetron HCl 4 mg ONCE ONCE IVP 02/03/18 02:00 02/03/18 02:01 DC 02/03/18 02:06 4 MG Vital Signs/I&O 02/02/18 23:43 Temp 100.9 Pulse 110 Resp 18 B/P (MAP) 134/80 (98) Pulse Ox 97 O2 Delivery Room Air Capillary Refill : Less Than 3 Seconds Blood Pressure Mean: 98 Progress Note : Progress Note Seen and evaluated. IV, labs, UA, blood cultures and lactic acid ordered. Normal saline 1 L bolus, Zofran 4 mg IV and Toradol 30 mg IV ordered. Monitor patient. UA obtained. Trichomonas noted. Also urinary tract infection. I do have concerns about possible cellulitis of the face. Rocephin 1 g IV. Flagyl 2 g by mouth. I did try calling the physician's [facility] and have left messages. We will stop the patient's current eyedrops (Lotemax) and start TobraDex. I did talk with the patient about following up at the [facility] in the morning. She will call first thing in the morning and try to get seen in the office today. I will send a copy of the chart to the [facility]. Patient is better after fluids and meds. Discharge home with return precautions. Patient verbalize understanding instructions and agreement with plan. Departure Impression Primary Impression: Facial cellulitis Additional Impressions: Conjunctivitis, left eye Qualified Codes: H10.32 - Unspecified acute conjunctivitis, left eye Sinusitis, acute Qualified Codes: J01.00 - Acute maxillary sinusitis, unspecified Urinary tract infection Qualified Codes: N30.01 - Acute cystitis with hematuria Disposition: HOME, SELF-CARE Condition: Improved Departure-Patient Inst. Decision time for Depature: 02:29 Referrals: LINDSAY STRONG DO (PCP) Primary Care Physician MACY TAMAYO (Family) Primary Care Physician RAS RAYA OD Patient Instructions: Cellulitis (Skin Infection), Adult (DC), Conjunctivitis ( Pinkeye) (DC), Sinusitis, Adult (DC), Urinary Tract Infection, Adult (DC) Add. Discharge Instructions: All discharge instructions reviewed with patient and/or family. Voiced understanding. Take medications as directed. You need to call the [facility] eye clinic first thing in the morning and try to get appointment today for further evaluation for your eye pain. Let them know that you were seen in the ER and they are requesting needed to get evaluation today if possible. Return for worse pain, fever, vomiting, weakness, breathing problems or other concerns as needed. Drink plenty of fluids. Scripts Ondansetron (Ondansetron Odt) 4 Mg Tab.rapdis 4 MG PO Q6H PRN for NAUSEA/VOMITING, #8 TAB 0 Refills Prov: LIA TORRES MD 02/03/18 Fluconazole (Diflucan) 150 Mg Tablet 150 MG PO ONCE, #1 TAB Take at onset of yeast infection symptoms Prov: LIA TORRES MD 02/03/18 Cefdinir (Cefdinir) 300 Mg Capsule 300 MG PO BID, #18 CAP 0 Refills Prov: LIA TORRES MD 02/03/18 Copy Copies To 1: RAS RAYA OD LIA TORRES MD Feb 03, 2018 00:43
[2018-02-03 00:54] LABS: CALCIUM 9.9 MG/DL (8.5-10.1); CREATININE SERUM 1.17 MG/DL (0.60-1.30); POTASSIUM 4.4 MMOL/L (3.6-5.0)
[2018-02-03 01:10] LABS: BILIRUBIN,URINE NEGATIVE (NEGATIVE); CLARITY,URINE VERY CLOUDY; COLOR,URINE AMBER; GLUCOSE, URINE (UA) 2+ (NEGATIVE); KETONES,URINE 1+ (NEGATIVE); LEUKOCYTE ESTERASE ,URINE 3+ (NEGATIVE); NITRITE,URINE NEGATIVE (NEGATIVE); PH,URINE 6 (5-9); PROTEIN,URINE 2+ (NEGATIVE); UROBILINOGEN,URINE NORMAL (NORMAL)
[2018-02-03 01:21] LABS: BACTERIA,URINE MODERATE /HPF; TRICHOMONAS,URINE LARGE /HPF; WBC,URINE 50-100 /HPF
[2018-02-03] MEDS ORDERED: cefTRIAXone FOR IV USE 1,000 MG in NS (IVPB) 50 ML IV ONE (01:30)
[2018-02-03] MEDS ORDERED: metroNIDAZOLE 500 MG (FLAGYL) TAB PO ONE (01:45)
[2018-02-03] MEDS ORDERED: fentaNYL INJECTION 100 MCG/2 ML AMP IVP STA (01:58)
[2018-02-03] MEDS ORDERED: RX-TOBRA/DEXAMETH (TOBRADEX) OP. SUSP 2.5 ML BTL OU STA (02:24)
[2018-02-03] MEDS ORDERED: ONDA4TAB11 PO (02:34)
[2018-02-03] MEDS ORDERED: CEFD300C3 PO (02:34)
[2018-02-03] MEDS ORDERED: FLUC150T PO (02:34)
[2018-02-03 02:45] VITALS: BP 122/77
[2018-02-04] MEDS ORDERED: NF-LOTEOS (07:14)
[2018-02-04] MEDS ORDERED: TIZA4TAB3 (07:14)
[2018-02-04] MEDS ORDERED: SLF10OP15 (07:14)
[2018-02-04] MEDS ORDERED: ALBU6.7H8 (07:14)
[2018-02-04] MEDS ORDERED: PRD20T (07:14)
[2018-02-04] MEDS ORDERED: MUPI1OIN6 TP (10:12)
[2018-02-04] MEDS ORDERED: SULF1TAB35 PO (10:12)
== END 2018-02-03 02:45 | disposition home or self-care (01) ==
LOC: EDUNIT# 23:12 → ER 23:15
DX: L03.211 Cellulitis of face (principal); H10.9 Unspecified conjunctivitis; J01.90 Acute sinusitis, unspecified; N39.0 Urinary tract infection, site not specified; I10 Essential (primary) hypertension; K21.9 Gastro-esophageal reflux disease without esophagitis; F41.9 Anxiety disorder, unspecified; Z91.040 Latex allergy status; Z88.6 Allergy status to analgesic agent; Z88.8 Allergy status to other drugs, medicaments and biological substances; Z98.890 Other specified postprocedural states
CPT/HCPCS: 36415; 80048; 81000; 83605; 85025; 86141; 87040; 87088; 96361; 96365; 96375; 96376

== ENCOUNTER 2018-02-04 06:21 | Emergency (ER) | payer MEDICAID ==
[~2018-02-04] VITALS: Ht 157.5 cm; Wt 90.7 kg
[~2018-02-04 06:21] MED LIST changes: +CEFD300C3 PO; +FLUC150T PO; +ONDA4TAB11 PO
--- OUTSIDE RECORDS SUMMARY | 2018-02-04 06:59 | XMS REPORT | Continuity of Care Document ---
Author Author [facility] Address Unknown Phone Unavailable Allergies Active Description Code Type Severity Reaction Onset Reported/Identified Relationship to Patient Clinical Status Yes aspirin Drug Allergy N/A N/A 06/01/2009 Yes aspirin Drug Allergy 06/01/2009 Yes aspirin [id number] Drug Allergy Severe N/A 11/12/2010 Yes flu [...] SHERRIE BLACKBURN MD 372.30 Conjunctivitis 03/17/2008 MACY TAMAYO APRN T 372.30 Conjunctivitis 03/17/2008 MAXWELL PHD, MARLENE Dickey 372.30 Conjunctivitis 03/17/2008 MAXWELL PHD, MARLENE Dickey 372.30 Conjunctivitis 03/17/2008 BERE SAEZ, SHERRIE 372.30 Conjunctivitis 03/17/2008 BERE SAEZ, SHERRIE 372.30 Conjunctivitis 03/17/2008 DHARMESH APRN, MOISES A 372.30 Conjunctivitis 03/17/2008 MACY TAMAYO APRN T 372.30 Conjunctivitis 03/17/2008 RACHELLE TRUCK CLEANER, YUKI 372.30 Conjunctivitis 03/17/2008 MACY TAMAYO APRN T 372.30 Conjunctivitis 03/17/2008 BERE SAEZ, SHERRIE 372.30 Conjunctivitis 03/17/2008 RACHELLE TRUCK CLEANER, YUKI 372.30 Conjunctivitis 03/17/2008 MAXWELL PHD, MARLENE Dickey 372.30 Conjunctivitis 03/17/2008 RACHELLE TRUCK CLEANER, YUKI 372.30 Conjunctivitis 03/17/2008 MACY TAMAYO APRN T 372.30 Conjunctivitis 03/17/2008 MACY TAMAYO APRN T 372.30 Conjunctivitis 03/17/2008 RACHELLE TRUCK CLEANER, YUKI 372.30 Conjunctivitis 06/01/2009 LINDSAY STRONG DO 493.92 Asthma (acute) Exacerbation 06/01/2009 493.92 Asthma (acute ) Exacerbation 06/01/2009 493.92 Asthma (acute ) Exacerbation 06/01/2009 MACY TAMAYO APRN 493.92 Asthma (acute) Exacerbation 06/01/2009 MACY TAMAYO APRN 493.92 Asthma (acute) Exacerbation 06/01/2009 LAINA [...] MACY T 380.4 Cerumen Impaction 07/25/2009 BELKIS TRUCK CLEANER, MACY T 692.9 Dermatitis 07/25/2009 BELKIS KOROMAN, MACY T 380.10 Otitis Externa 07/25/2009 BELKIS KOROMAN, MACY T 380.4 Cerumen Impaction 07/25/2009 BELKIS KOROMAN, MACY T 692.9 Dermatitis 07/25/2009 BELKIS TRUCK CLEANER, MACY T 380.10 Otitis Externa 07/25/2009 BELKIS [...] MACY TAMAYO APRN 692.9 Dermatitis 07/25/2009 RACHELLE TRUCK CLEANER, YUKI 380.10 Otitis Externa 07/25/2009 RACHELLE MG, YUKI 380.4 Cerumen Impaction 07/25/2009 RACHELLE MG YUKI 692.9 Dermatitis 07/25/2009 MACY TAMAYO APRN T 380.10 Otitis Externa 07/25/2009 MACY TAMAYO APRN 380.4 Cerumen Impaction 07/25/2009 MACY TAMAYO APRN 692.9 Dermatitis 07/25/2009 SHERRIE BLACKBURN MD 380.10 Otitis Externa 07/25/2009 BERE SAEZ, SHERRIE 380.4 Cerumen Impaction 07/25/2009 BERE SAEZ, SHERRIE 692.9 Dermatitis 07/25/2009 RACHELLE TRUCK CLEANER, YUKI 380.10 Otitis Externa 07/25/2009 RACHELLE MG, [...] LAINA SHERMAN MD 719.46 Knee Pain 08/26/2010 LANIA SHERMAN MD 789.7 Colic 08/26/2010 719.46 Knee [...] MACY TAMAYO APRN 719.46 Knee Pain 08/26/2010 MCAY TAMAYO APRN 789.7 Colic 08/26/2010 MAXWELL PHD, [...] MACY TAMAYO APRN 789.7 Colic 08/26/2010 RACHELLE TRUCK CLEANER, YUKI 719.46 Knee Pain 08/26/2010 RACHELLE MG, YUKI 789.7 Colic 08/26/2010 MACY TAMAYO APRN 719.46 Knee Pain 08/26/2010 MACY TAMAYO APRN 789.7 Colic 08/26/2010 SHERRIE BLACKBURN MD 719.46 Knee Pain 08/26/2010 SHERRIE BLACKBURN MD.7 Colic 08/26/2010 RACHELLE TRUCK CLEANER, YUKI 719.46 Knee Pain 08/26/2010 RACHELLE TRUCK CLEANER, YUKI 789.7 Colic 08/26/2010 MAXWELL PHD, MARLENE Dickey 719.46 Knee Pain 08/26/2010 MAXWELL PHD, MARLENE Dickey 789.7 Colic 08/26/2010 RACHELLE TRUCK CLEANER, YUKI 719.46 Knee Pain 08/26/2010 RACHELLE TRUCK CLEANER, YUKI 789.7 Colic 08/26/2010 MACY TAMAYO APRN 719.46 Knee Pain 08/26/2010 MACY TAMAYO APRN 789.7 Colic 08/26/2010 MACY TAMAYO APRN 719.46 Knee Pain 08/26/2010 MACY TAMAYO APRN 789.7 Colic 08/26/2010 RACHELLE TRUCK CLEANERYARY MuñizYUKI 719.46 Knee Pain 08/26/2010 RACHELLEYARY MORELOS [...] APRN T 401.9 HYPERTENSION (SYSTEMIC) 02/23/2011 MACY TAMAYO APRN [...] NIETO, MARLENE Dickey 300.00 ANXIETY UNSPEC 03/02/2011 YUKI BUSH APRN [...] Retained Foreign Body Unspecified Material 07/27/2011 MACY TAMAOY APRN V90.9 Retained Foreign Body Unspecified Material [...] LAINA SHERMAN MD 250.80 Hypoglycemia (diabetic) 08/24/2011 LAIAN SHERMAN MD 381.81 Eustachian Tube Dysfunction 08/24/2011 [...] MACY TAMAYO APRN 477.9 Rhinitis 08/24/2011 BELKIS TRUCK CLEANER, MACY T 250.80 Hypoglycemia (diabetic) 08/24/2011 MACY [...] Dysfunction 08/24/2011 SHERRIE BLACKBURN MD.9 Rhinitis 08/24/2011 MACY TAMAYO APRN T [...] TAMAYO APRN 729.5 LEG PAIN 02/29/2012 BELKIS TRUCK CLEANER, MACY T 729.4 PLANTAR FASCIITIS 02/29/2012 BELKIS [...] MARLENE Dickey 729.5 LEG PAIN 02/29/2012 RACHELLE TRUCK CLEANER, YUKI 729.4 PLANTAR FASCIITIS 02/29/2012 YUKI BUSH [...] YUKI 616.10 Vaginitis Vulvovaginitis Unspecified 03/29/2012 RACHELLE TRUCK CLEANER, YUKI 627.8 PERIMENOPAUSE 03/29/2012 MACY TAMAYO APRN T 616.10 Vaginitis Vulvovaginitis Unspecified 03/29/2012 MACY TAMAYO APRN T 627.8 PERIMENOPAUSE 03/29/2012 MACY TAMAYO APRN T 616.10 Vaginitis Vulvovaginitis Unspecified 03/29/2012 MACY TAMAYO APRN T 627.8 PERIMENOPAUSE 03/29/2012 RACHELLE TRUCK CLEANER, YUKI 616.10 Vaginitis Vulvovaginitis Unspecified 03/29/2012 RACHELLE TRUCK CLEANER, YUKI 627.8 PERIMENOPAUSE 04/18/2012 LINDSAY STRONG DO [...] APRN 786.05 shortness of breath 08/08/2012 BELKIS TRUCK CLEANER, MACY T 786.05 SHORTNESS OF BREATH 08/08/2012 MACY TAMAYO APRN 786.05 SHORTNESS OF BREATH 08/08/2012 MACY TAMAYO APRN 786.05 SHORTNESS OF BREATH 08/08/2012 MACY TAMAYO APRN 786.05 SHORTNESS OF BREATH 08/08/2012 SHERRIE BLACKBURN MD 786.05 SHORTNESS OF BREATH 08/08/2012 SHERRIE BLACKBURN MD 786.05 SHORTNESS OF BREATH 08/08/2012 MACY TAMAYO APRN 786.05 SHORTNESS OF BREATH 08/08/2012 MAXWELL PHD, MRALENE Dickey 786.05 SHORTNESS OF BREATH 08/08/2012 MAXWELL PHD, MARLENE Dickey 786.05 SHORTNESS OF BREATH 08/08/2012 SHERRIE BLACKBURN MD 786.05 SHORTNESS OF BREATH 08/08/2012 SHERRIE BLACKBURN MD 786.05 SHORTNESS OF BREATH 08/08/2012 MOISES BARROSO APRN 786.05 SHORTNESS OF BREATH 08/08/2012 MCAY TAMAYO APRN 786.05 SHORTNESS OF BREATH 08/08/2012 [...] MACY TAMAYO APRN 710.3 DERMATOMYOSITIS 02/11/2013 BELKIS TRUCK CLEANER, MACY T 710.3 DERMATOMYOSITIS 02/11/2013 BELKIS KOROMAN, [...] KOROMAN, MOISES Turk 710.3 DERMATOMYOSITIS 02/11/2013 BELKIS TRUCK CLEANER, MACY T 710.3 DERMATOMYOSITIS 02/11/2013 RACHELLE TRUCK CLEANER, YUKI 710.3 DERMATOMYOSITIS 02/11/2013 BELKIS KOROMAN, MACY T 710.3 DERMATOMYOSITIS 02/11/2013 BERE SAEZ, SHERRIE 710.3 DERMATOMYOSITIS 02/11/2013 RACHELLE TRUCK CLEANER, YUKI 710.3 DERMATOMYOSITIS 02/11/2013 MAXWELL PHD, MARLENE Dickey 710.3 DERMATOMYOSITIS 02/11/2013 RACHELLE TRUCK CLEANER, YUKI 710.3 DERMATOMYOSITIS 02/11/2013 BELKIS KOROMAN, MACY T 710.3 DERMATOMYOSITIS 02/11/2013 BELKIS KOROMAN, MACY T 710.3 DERMATOMYOSITIS 02/11/2013 RACHELLE TRUCK CLEANER, YUKI 710.3 DERMATOMYOSITIS 03/13/2013 BELKIS MG, MACY [...] MACY T 008.8 GASTROENTERITIS, VIRAL 03/13/2013 RACHELLE TRUCK CLEANER, YUKI 008.8 GASTROENTERITIS, VIRAL 03/13/2013 MACY TAMAYO APRN 008.8 GASTROENTERITIS, VIRAL 03/13/2013 SHERRIE BLACKBURN MD 008.8 GASTROENTERITIS, VIRAL 03/13/2013 RACHELLE TRUCK CLEANER, YUKI 008.8 GASTROENTERITIS, VIRAL 03/13/2013 MAXWELL PHD, MARLENE Dickey 008.8 GASTROENTERITIS, VIRAL 03/13/2013 RACHELLE TRUCK CLEANER, YUKI 008.8 GASTROENTERITIS, VIRAL 03/13/2013 MCAY TAMAYO APRN T 008.8 GASTROENTERITIS, VIRAL 03/13/2013 BELKIS MG, MACY T 008.8 GASTROENTERITIS, VIRAL 03/13/2013 RACHELLE TRUCK CLEANER, YUKI 008.8 GASTROENTERITIS, VIRAL 08/09/2013 MACY TAMAYO [...] SHERRIE BLACKBURN MD 535.50 GASTRITIS UNSPEC 08/09/2013 DHARMESH MG, MOISES Turk 535.50 GASTRITIS UNSPEC 08/09/2013 MACY TAMAYO APRN 535.50 GASTRITIS UNSPEC 08/09/2013 YUKI BUSH APRN 535.50 GASTRITIS UNSPEC 08/09/2013 BELKIS MG MACY Claudine 535.50 GASTRITIS UNSPEC 08/09/2013 SHERRIE BLACKBURN MD 535.50 GASTRITIS UNSPEC 08/09/2013 YUKI BUSH APRN 535.50 GASTRITIS UNSPEC 08/09/2013 MAXWELL NIETO, AMRLENE Dickey 535.50 GASTRITIS UNSPEC 08/09/2013 YUKI BUSH [...] MG, MOISES Turk 782.3 EDEMA 10/14/2013 BELKIS TRUCK CLEANER, MACY T 214.9 LIPOMA 10/14/2013 BELKIS TRUCK CLEANER, MACY T 782.3 EDEMA 10/14/2013 RACHELLE TRUCK CLEANER, YUKI 214.9 LIPOMA 10/14/2013 RACHELLE TRUCK CLEANER, YUKI 782.3 EDEMA 10/14/2013 BELKIS SAURAV, MACY T 214.9 LIPOMA 10/14/2013 BELKIS MG, MACY T 782.3 EDEMA 10/14/2013 SHERRIE BLACKBURN MD 214.9 LIPOMA 10/14/2013 SHERRIE BLACKBURN MD 782.3 EDEMA 10/14/2013 RACHELLE TRUCK CLEANER, YUKI 214.9 LIPOMA 10/14/2013 RACHELLE TRUCK CLEANER, YUKI 782.3 EDEMA 10/14/2013 MAXWELL PHD, MARLENE Dickey 214.9 LIPOMA 10/14/2013 MAXWELL PHD, MARLENE Dickey 782.3 EDEMA 10/14/2013 RACHELLE TRUCK CLEANER, YUKI 214.9 LIPOMA 10/14/2013 RACHELLE TRUCK CLEANER, YUKI 782.3 EDEMA 10/14/2013 BELKIS SAURAV, MACY T 214.9 LIPOMA 10/14/2013 BELKIS TRUCK CLEANER, MACY T 782.3 EDEMA 10/14/2013 BELKIS TRUCK CLEANER, MACY T 214.9 LIPOMA 10/14/2013 BELKIS SAURAV, MACY T 782.3 EDEMA 10/14/2013 RACHELLE TRUCK CLEANER, YUKI 214.9 LIPOMA 10/14/2013 RACHELLE TRUCK CLEANER, YUKI 782.3 EDEMA 01/01/2014 MACY TAMAYO APRN [...] MD 786.05 SHORTNESS OF BREATH 01/01/2014 SHERRIE BLACKBRUN MD 786.05 SHORTNESS OF BREATH 01/01/2014 DHARMESH TRUCK CLEANER, MOISES A 786.05 SHORTNESS OF BREATH 01/01/2014 MACY TAMAYO APRN T 786.05 SHORTNESS OF BREATH 01/01/2014 RACHELLE TRUCK CLEANER, YUKI 786.05 SHORTNESS OF BREATH 01/01/2014 MACY TAMAYO APRN T 786.05 SHORTNESS OF BREATH 01/01/2014 SHERRIE BLACKBURN MD 786.05 SHORTNESS OF BREATH 01/01/2014 RACHELLE TRUCK CLEANER, YUKI 786.05 SHORTNESS OF BREATH 01/01/2014 MARLENE ARREOLA PHD 786.05 SHORTNESS OF BREATH 01/01/2014 RACHELLE TRUCK CLEANER, YUKI 786.05 SHORTNESS OF BREATH 01/01/2014 MACY [...] DEPRESSIVE DISORDER NOT ELSEWHERE CLASSIFIED 02/03/2014 RACHELLE TRUCK CLEANER, YUKI 311 DEPRESSIVE DISORDER NOT ELSEWHERE CLASSIFIED 03/20/2014 MAXWELL PHD, MARLENE Dickey 296.90 MOOD DISORDER NOS 03/20/2014 MAXWELL PHD, MARLENE Dickey 296.90 MOOD DISORDER NOS 03/20/2014 SHERRIE BLACKBURN MD 296.90 MOOD DISORDER NOS 03/20/2014 SHERRIE BLACKBURN MD 296.90 MOOD DISORDER NOS 03/20/2014 DHARMESH MG, MOISES A 296.90 MOOD DISORDER NOS 03/20/2014 BELKIS SAURAV MACY T 296.90 MOOD DISORDER NOS 03/20/2014 RACHELLE TRUCK CLEANER, YUKI 296.90 MOOD DISORDER NOS 03/20/2014 BELKIS MG MACY T 296.90 MOOD DISORDER NOS 03/20/2014 SHERRIE BLACKBURN MD 296.90 MOOD DISORDER NOS 03/20/2014 RACHELLE TRUCK CLEANER, YUKI 296.90 MOOD DISORDER NOS 03/20/2014 MAXWELL NIETO, MARLENE Dickey 296.90 MOOD DISORDER NOS 03/20/2014 RACHELLE TRUCK CLEANER, YUKI 296.90 MOOD DISORDER NOS 03/20/2014 BELKIS MG MACY T 296.90 MOOD DISORDER NOS 03/20/2014 BELKIS MG MACY T 296.90 MOOD DISORDER NOS 03/20/2014 RACHELLE TRUCK CLEANER, YUKI 296.90 MOOD DISORDER NOS 04/15/2014 SHERRIE [...] TRACT INFECTION SITE NOT SPECIFIED 04/15/2014 RACHELLE TRUCK CLEANER, YUKI 599.0 URINARY TRACT INFECTION SITE NOT SPECIFIED 04/15/2014 MACY TAMAYO APRN T 599.0 URINARY TRACT INFECTION SITE NOT SPECIFIED 04/15/2014 MACY TAMAYO APRN T 599.0 URINARY TRACT INFECTION SITE NOT SPECIFIED 04/15/2014 RACHELLE TRUCK CLEANER, YUKI 599.0 URINARY TRACT INFECTION SITE NOT [...] MAMMO-MALIGN NEOPLASM OF SANDRA 04/08/2016 MACY TAMAYO BACK TUFTER Ot 214.9 LIPOMA NOS 04/08/2016 MCAY TAMAYO BACK TUFTER Ot 278.01 MORBID OBESITY 04/08/2016 MACY TAMAYO BACK TUFTER Ot 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 04/08/2016 MACY TAMAYO BACK TUFTER Ot 782.3 EDEMA 04/08/2016 MOISES BARROSO TRUCK CLEANER Ot 611.71 MASTODYNIA 04/08/2016 MACY TAMAYO BACK TUFTER Ot 214.9 LIPOMA NOS 04/08/2016 MACY TAMAYO BACK TUFTER Ot 278.01 MORBID OBESITY 04/08/2016 MACY TAMAYO BACK TUFTER Ot 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 04/08/2016 MACY TAMAYO BACK TUFTER Ot 782.3 EDEMA 04/08/2016 HENRY THOMPSON BACK TUFTER Ot S83.281A OTH TEAR OF LAT MENSC, CURRENT INJURY, R 04/08/2016 HENRY THOMPSON BACK TUFTER Ot X58.XXXA EXPOSURE TO OTHER SPECIFIED FACTORS, INI 04/08/2016 HENRY THOMPSON BACK TUFTER Ot Y99.8 OTHER EXTERNAL CAUSE STATUS 04/08/2016 HENRY THOMPSON BACK TUFTER Ot S83.281A OTH TEAR OF LAT MENSC, CURRENT INJURY, R 04/08/2016 HENRY THOMPSON BACK TUFTER Ot X58.XXXA EXPOSURE TO OTHER SPECIFIED FACTORS, INI 04/08/2016 HENRY THOMPSON BACK TUFTER Ot Y99.8 OTHER EXTERNAL CAUSE STATUS 04/09/2016 HENRY THOMPSON BACK TUFTER Ot S83.281A OTH TEAR OF LAT MENSC, CURRENT INJURY, R 04/09/2016 HENRY THOMPSON BACK TUFTER Ot X58.XXXA EXPOSURE TO OTHER SPECIFIED FACTORS, INI 04/09/2016 HENRY THOMPSON BACK TUFTER Ot Y99.8 OTHER EXTERNAL CAUSE STATUS 04/11/2016 HENRY THOMPSON BACK TUFTER Ot S83.281A OTH TEAR OF LAT MENSC, CURRENT INJURY, R 04/11/2016 HENRY THOMPSON BACK TUFTER Ot X58.XXXA EXPOSURE TO OTHER SPECIFIED FACTORS, INI 04/11/2016 HENRY THOMPSON BACK TUFTER Ot Y99.8 OTHER EXTERNAL CAUSE STATUS 04/15/2016 Ot 626.8 MENSTRUAL DISORDER NEC 04/15/2016 Ot V76.12 OTH SCREEN MAMMO-MALIGN NEOPLASM OF SANDRA 04/15/2016 BELKISMACY Claudine BACK TUFTER Ot 214.9 LIPOMA NOS 04/15/2016 BELKISMACY BACK TUFTER Ot 278.01 MORBID OBESITY 04/15/2016 BELKIS MACY Claudine BACK TUFTER Ot 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 04/15/2016 BELKIS MACY Claudine BACK TUFTER Ot 782.3 EDEMA 04/15/2016 MOISES BARROSO Burke TRUCK CLEANER Ot 611.71 MASTODYNIA 04/15/2016 HENRY THOMPSON Ot S83.281A OTH TEAR OF LAT MENSC, CURRENT INJURY, R 04/15/2016 HENRY THOMPSONP Ot X58.XXXA EXPOSURE TO OTHER SPECIFIED FACTORS, INI 04/15/2016 HENRY THOMPSON Ot Y99.8 OTHER EXTERNAL CAUSE STATUS 04/15/2016 HENRY THOMPSONP Ot S83.281A OTH TEAR OF LAT MENSC, CURRENT INJURY, R 04/15/2016 HENRY THOMPSON BACK TUFTER Ot X58.XXXA EXPOSURE TO OTHER SPECIFIED FACTORS, INI 04/15/2016 HENRY THOMPSON Ot Y99.8 OTHER EXTERNAL CAUSE STATUS 04/15/2016 BELKIS MACY Claudine BACK TUFTER Ot 214.9 LIPOMA NOS 04/15/2016 BELKIS MACY Claudine BACK TUFTER Ot 278.01 MORBID OBESITY 04/15/2016 BELKIS MACY Claudine BACK TUFTER Ot 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 04/15/2016 BELKIS MACY Claudine BACK TUFTER Ot 782.3 EDEMA 04/16/2016 BELKIS MACY Claudine BACK TUFTER Ot 214.9 LIPOMA NOS 04/16/2016 MACY TAMAYO BACK TUFTER Ot 278.01 MORBID OBESITY 04/16/2016 BELKIS MACY Claudine BACK TUFTER Ot 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 04/16/2016 BELKIS MACY Claudine BACK TUFTER Ot 782.3 EDEMA 04/16/2016 HENRY THOMPSON BACK TUFTER Ot S83.281A OTH TEAR OF LAT MENSC, CURRENT INJURY, R 04/16/2016 HENRY THOMPSON BACK TUFTER Ot X58.XXXA EXPOSURE TO OTHER SPECIFIED FACTORS, INI 04/16/2016 HENRY THOMPSON BACK TUFTER Ot Y99.8 OTHER EXTERNAL CAUSE STATUS 06/29/2017 MACY TAMAYO BACK TUFTER Ot 214.9 LIPOMA NOS 06/29/2017 MACY TAMAYO BACK TUFTER Ot 278.01 MORBID OBESITY 06/29/2017 MACY TAMAYO BACK TUFTER Ot 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 06/29/2017 MACY TAMAYO BACK TUFTER Ot 782.3 EDEMA 06/29/2017 MOSIES BARROSO APRN Ot 611.71 MASTODYNIA 06/29/2017 HENRY THOMPSON BACK TUFTER Ot S83.281A OTH TEAR OF LAT MENSC, CURRENT INJURY, R 06/29/2017 HENRY THOMPSON BACK TUFTER Ot X58.XXXA EXPOSURE TO OTHER SPECIFIED FACTORS, INI 06/29/2017 HENRY THOMPSON BACK TUFTER Ot Y99.8 OTHER EXTERNAL CAUSE STATUS 06/30/2017 KINGSLEY SADLER APRN Ot Z12.31 ENCNTR SCREEN MAMMOGRAM FOR MALIGNANT NE Procedures Code Description [place] [address] MAMMOGRAM, SCREENING 03/29/2012 93568 CULTURE UROGENITAL 03/29/2012 10753 GC/CHLAM PROBE (STATE) 03/29/2012 88175 MICROALBUMIN 04/04/2012 42909 A1C (IN-HOUSE) 04/04/2012 51927 MICRO ALBUMIN-IN HOUSE 04/04/2012 46858 ROUTINE VENIPUNCTURE 06/26/2012 75745 ESR/SED RATE 06/26/2012 88853 CMP 06/26/2012 96965 LIPID PANEL 06/26/2012 65986 TSH 06/26/2012 91764 CBC 06/26/2012 95795 PTT (THROMBOPLASTIN TIME, PARTIAL) 06/26/2012 93243 CRP 06/26/2012 ANAANA OPAL ANALYZER (SCREEN) 06/26/2012 19991 A1C (IN-HOUSE) 07/04/2012 Internal Laina Sherman 07/05/2012 95860 ROUTINE VENIPUNCTURE 08/08/2012 34403 CMP 08/08/2012 1192559 GFR CALC (RESULT ONLY) 08/08/2012 17838 CBC 08/08/2012 92977 CRP 08/08/2012 63958 CPK 08/08/2012 65848 ESR/SED RATE 08/08/2012 39648 XRAY CHEST 2 VIEW 08/10/2012 28373 UA W/MICROSCOPY 08/10/2012 14161 CARDIOLIPIN ANTIBODY 08/10/2012 84216 ROUTINE VENIPUNCTURE 08/20/2012 69520 CMP 08/20/2012 8363743 GFR CALC (RESULT ONLY) 08/20/2012 05359 CPK 08/20/2012 16349 HEPATITIS PROFILE 08/20/2012 61172 ROUTINE VENIPUNCTURE 10/17/2012 52994 A1C (IN-HOUSE) 10/17/2012 85303 CMP 10/18/2012 39065 CBC 10/18/2012 18417 A1C (IN-HOUSE) 01/23/2013 82964 THERAPUTIC INJ SQ/IM 02/07/2013 15467 CBC 02/07/2013 71478 CMP 02/07/2013 0955781 GFR CALC (RESULT ONLY) 02/07/2013 15526 ROUTINE VENIPUNCTURE 06/14/2013 35847 MYOGLOBIN 06/14/2013 51561 TSH 06/14/2013 26596 A1C (IN-HOUSE) 06/14/2013 02350 CBC 06/14/2013 22665 CMP 06/14/2013 4891673 GFR CALC (RESULT ONLY) 06/14/2013 75413 A1C (IN-HOUSE) 08/09/2013 97809 ROUTINE VENIPUNCTURE 09/09/2013 10129 CPK 09/09/2013 13257 MYOGLOBIN 09/09/2013 82649 TSH 09/09/2013 59977 CBC 09/09/2013 30025 CMP 09/09/2013 70002 MAGNESIUM 09/09/2013 1151010 GFR CALC (RESULT ONLY) 09/09/2013 09761 US SOFT TISSUE (SPECIFY LOCATION) 10/14/2013 03899 OXIMETRY 10/14/2013 94331 ROUTINE VENIPUNCTURE 11/27/2013 30990 CMP 11/27/2013 86740 MYOGLOBIN 11/27/2013 34383 CBC 11/27/2013 75747 SED/ESR RATE RML 11/27/2013 98105 MICRO ALBUMIN-IN HOUSE 11/27/2013 43210 A1C (IN-HOUSE) 11/27/2013 SHERRIE MENA 01/01/2014 29621 ROUTINE VENIPUNCTURE 03/04/2014 06179 A1C (IN-HOUSE) 03/04/2014 88571 CBC 03/04/2014 6902493 GFR CALC (RESULT ONLY) 03/04/2014 66065 CMP 03/04/2014 18903 PSYCH DIAGNOSTIC EVALUATION 03/20/2014 12951 PSYTX PT&/FAMILY 45 MINUTES 04/02/2014 65853 UA W/ CULTURE IF INDICATED 04/15/2014 11602 CULTURE URINE 04/17/2014 63151 MAMMOGRAM DX, MARIANA 04/22/2014 90959 REMOVAL OF NAIL BED 05/06/2014 60536 PAP SMEAR 05/12/2014 Q0091 PAP SMEAR OBTAIN SMEAR 05/12/2014 11589 ROUTINE VENIPUNCTURE 05/20/2014 71950 BMP 05/20/2014 05564 MAGNESIUM 05/20/2014 53094 PSYTX PT&/FAMILY 30 MINUTES 05/26/2014 61264 ROUTINE VENIPUNCTURE 09/08/2014 91416 A1C (RML) 09/08/2014 2179943 GFR CALC (RESULT ONLY) 09/08/2014 78342 CMP 09/08/2014 70683 LIPID PANEL 09/08/2014 Results Test Result Range [...] NRG STATEMENT OF ADEQUACY: NRG INTERPRETATION/RESULT: NRG RETURNED TELEPHONE EQUIPMENT APPRAISER: KEERTHI HPV mRNA E6/E7, SUREPATH VIAL Not Detected NOT DETECTED REVIEW RETURNED TELEPHONE EQUIPMENT APPRAISER: KEERTHI LIPID PANEL - 06/23/17 08:09 CHOLESTEROL, TOTAL 178 mg/dL <200 HDL CHOLESTEROL 68 mg/dL >50 TRIGLYCERIDES 86 mg/dL <150 LDL-CHOLESTEROL 92 mg/dL (calc) NRG CHOL/HDLC RATIO 2.6 (calc) <5.0 NON HDL CHOLESTEROL 110 mg/dL (calc) <130 CULTURE, URINE - 07/25/17 13:10 CULTURE, URINE, ROUTINE SEE NOTE NRG Encounters ACCT No. Visit Date/Time Discharge Status Pt. Type Provider Facility Loc./Unit Complaint [id number] 09/23/2014 09:21:00 09/23/2014 23:59:59 CLS Outpatient YUKI BUSH APRN [id number] 09/08/2014 09:50:00 09/08/2014 23:59:59 CLS Outpatient MACY TAMAYO APRN [id number] 09/03/2014 17:57:00 09/03/2014 23:59:59 CLS Outpatient MACY TAMAYO APRN [id number] 07/11/2014 16:23:00 07/11/2014 23:59:59 CLS Outpatient YUKI BUSH APRN [id number] 06/30/2014 10:45:00 06/30/2014 23:59:59 CLS Outpatient MAXWELL NIETO, MARLENE Dickey [id number] 05/26/2014 10:32:00 05/26/2014 23:59:59 CLS Outpatient SHERRIE BLACKBURN MD [id number] 05/20/2014 14:22:00 05/20/2014 23:59:59 CLS Outpatient MACY TAMAYO APRN [id number] 05/08/2014 13:58:00 05/08/2014 23:59:59 CLS Outpatient YUKI BUSH APRN [id number] 05/08/2014 13:58:00 05/08/2014 23:59:59 CLS Outpatient YUKI BUSH APRN [id number] 05/06/2014 15:47:00 05/06/2014 23:59:59 CLS Outpatient MACY TAMAYO APRN [id number] 04/21/2014 10:30:00 04/21/2014 23:59:59 CLS Outpatient MOISES BARROSO APRN [id number] 04/15/2014 15:36:00 04/15/2014 23:59:59 CLS Outpatient SHERRIE BLACKBURN MD [id number] 04/04/2014 09:55:00 04/04/2014 23:59:59 CLS Outpatient SHERRIE BLACKBURN MD [id number] 04/02/2014 13:01:00 04/02/2014 23:59:59 CLS Outpatient MARLENE ARREOLA PHD [id number] 03/20/2014 14:03:00 03/20/2014 23:59:59 CLS Outpatient MAXWELL NIETO, MARLENE Dickey [id number] 03/19/2014 14:54:00 03/19/2014 23:59:59 CLS Outpatient MACY TAMAYO APRN [id number] 03/04/2014 11:36:00 03/04/2014 23:59:59 CLS Outpatient SHERRIE BLACKBURN MD [id number] 02/03/2014 15:40:00 02/03/2014 23:59:59 CLS Outpatient SHERRIE BLACKBURN MD [id number] 01/01/2014 15:04:00 01/01/2014 23:59:59 CLS Outpatient MACY TAMAYO APRN [id number] 11/27/2013 15:58:00 11/27/2013 23:59:59 CLS Outpatient MACY TAMAYO APRN [id number] 10/14/2013 15:28:00 10/14/2013 23:59:59 CLS Outpatient MACY TAMAYO APRN [id number] 09/09/2013 08:45:00 09/09/2013 23:59:59 CLS Outpatient MACY TAMAYO APRN [id number] 08/09/2013 16:21:00 08/09/2013 23:59:59 CLS Outpatient MACY TAMAYO APRN [id number] 06/14/2013 11:12:00 06/14/2013 23:59:59 CLS Outpatient MACY TAMAYO APRN [id number] 03/13/2013 15:49:00 03/13/2013 23:59:59 CLS Outpatient MACY TAMAYO APRN [id number] 02/11/2013 15:24:00 02/11/2013 23:59:59 CLS Outpatient MACY TAMAYO APRN [id number] 09/04/2012 15:40:00 09/04/2012 23:59:59 CLS Outpatient MACY TAMAYO APRN [id number] 08/20/2012 08:50:00 08/20/2012 23:59:59 CLS Outpatient [id number] 08/08/2012 14:49:00 08/08/2012 23:59:59 CLS Outpatient LAINA SHERMAN MD [id number] 07/04/2012 18:16:00 07/04/2012 23:59:59 CLS Outpatient MACY TAMAYO APRN [id number] 06/26/2012 09:06:00 06/26/2012 23:59:59 CLS Outpatient BELKIS MG MACY Claudine [id number] 06/20/2012 17:28:00 06/20/2012 23:59:59 CLS Outpatient [id number] 04/18/2012 15:54:00 04/18/2012 23:59:59 CLS Outpatient [id number] 02/29/2012 18:24:00 02/29/2012 23:59:59 CLS Outpatient LINDSAY STRONG DO [id number] 02/07/2013 10:16:00 Document Registration [id number] 01/23/2013 15:37:00 Document Registration [id number] 10/17/2012 15:48:00 Document Registration [id number] 09/09/2016 08:41:00 Document Registration [id number] 09/09/2016 13:05:00 Document Registration [id number] 01/30/2016 13:05:00 Document Registration [id number] 12/14/2017 15:00:00 12/14/2017 23:59:59 CLS Outpatient MACY TAMAYO APRN [facility] [id number] 07/25/2017 12:20:00 Document Registration [id number] 06/23/2017 08:00:00 Document Registration [id number] 06/22/2017 10:40:00 Document Registration [id number] 06/29/2017 08:47:00 06/29/2017 23:59:59 CLS Outpatient KINGSLEY SADLER APRN [facility] RAD SCREENING [id number] 04/08/2016 09:02:00 04/08/2016 23:59:59 CLS Outpatient HENRY THOMPSON [facility] RAD [id number] 04/29/2014 12:24:00 04/29/2014 23:59:59 CLS Outpatient MOISES BARROSO APRN [facility] RAD BILATERAL BREAST PAIN [id number] 10/25/2013 15:33:00 10/25/2013 23:59:59 CLS Outpatient MACY TAMAYO [facility] RAD RT/LFT BUTTOCKS LIPOMA [id number] 04/29/2014 12:22:00 Document Registration [id number] 11/19/2010 10:13:00 Document Registration [id number] 11/12/2010 20:18:00 Document Registration [id number] 08/27/2010 15:32:00 Document Registration
--- NOTE | 2018-02-04 07:13 | ED Integumentary General ---
General Chief Complaint: General Problems/Pain Stated Complaint: FACE SWOLLEN,HEADACHE Source: patient Exam Limitations: no limitations History of Present Illness Date Seen by Provider: Feb 04, 2018 Time Seen by Provider: 06:58 Initial Comments Patient presents to ER by private conveyance with chief complaint that she is having left-sided facial swelling and a minor amount of the drainage from the eye. She says is been going on since , Monday, 7 days ago. She went in 6 days ago to see her doctor and they prescribed some either antibiotic or eyedrop steroid topical and a day later she went to see Dr. Yao, Optometry and he switched her eyedrop from either a steroid or antibiotic to the other one. She doesn't have a medicine with her and she's not sure what she is on right now. She came in to the ER yesterday at around midnight and was worked up with labs and given a dose of Rocephin and Flagyl for Trichomonas. She was then started on Omnicef for acute sinusitis versus cellulitis. She feels the swelling is gotten worse now she can voluntarily open her eye. She feels the swelling is increased and that it is crossing the midline at her glabella. Her ear and jaws are also sore. She's having clear rhinorrhea but no discharge from the ears. She has edentulous. Allergies and Home Medications Allergies Coded Allergies: latex (Verified Allergy, Unknown, 02/03/18) sertraline (Verified Allergy, Unknown, 02/03/18) aspirin (Unverified Adverse Reaction, Severe, 11/12/10) Patient Home Medication List Home Medication List Reviewed: Yes Review of Systems Review of Systems Constitutional: No chills, No diaphoresis EENTM: see HPI, ear pain, eye pain Respiratory: No cough, No short of breath Cardiovascular: No chest pain, No edema Gastrointestinal: No abdominal pain, No constipation, No nausea Genitourinary: No discharge, No dysuria Past Rhwzxno-Otxgtx-Zgaidq Hx Patient Social History Alcohol Use: Denies Use Recreational Drug Use: No Recent Foreign Travel: No Contact w/Someone Who Travel: No Recent Hopitalizations: No Immunizations Up To Date Tetanus Booster (TDap): Unknown Seasonal Allergies Seasonal Allergies: No Past Medical History Surgeries: Yes Section Respiratory: Yes Cardiac: Yes Hypertension Neurological: No Genitourinary: No Gastrointestinal: Yes Gastroesophageal Reflux Musculoskeletal: Yes (myositis) HEENT: No Cancer: No Psychosocial: Yes Anxiety Integumentary: No Blood Disorders: No Family Medical History No Pertinent Family Hx Physical Exam Vital Signs Vital Signs - First Documented 02/04/18 06:51 Temp 98.7 Pulse 104 B/P (MAP) 157/77 (103) Pulse Ox 95 O2 Delivery Room Air Capillary Refill : General Appearance: WD/WN, no apparent distress HEENT: PERRL/EOMI; No TMs normal (canals occluded with cerumen and TMs are unable to be visualized. Left canal is tender to manipulation.); other (left eye conjunctiva shows injection and there is a thin layer of mattering present. There is swelling of the soft tissues. Orbital including both upper and lower eyelids. The swelling stops at the midline. It involves her forehead and little bit of her hinduism and buccal region. She's having no stridor or airway or oropharynx swelling. There is clear rhinorrhea mild and erythematous nasopharynx mucous membranes. Eyelid is able to be manually retracted.) Neck: non-tender, full range of motion Cardiovascular: normal peripheral pulses, regular rate, rhythm, no edema Neurologic/Psychiatric: alert, normal mood/affect, oriented x 3 Skin: other (erythematous swollen left side of face. Tender to palpation.) Progress/Results/Core Measures Results/Orders Lab Results Laboratory Tests Test 02/04/18 07:45 Range/Units White Blood Count 5.0 4.3-11.0 10^3/uL Red Blood Count 5.28 4.35-5.85 10^6/uL Hemoglobin 13.9 11.5-16.0 G/DL Hematocrit 41 35-52 % Mean Corpuscular Volume 77 L 80-99 FL Mean Corpuscular Hemoglobin 26 25-34 PG Mean Corpuscular Hemoglobin Concent 34 32-36 G/DL Red Cell Distribution Width 14.5 10.0-14.5 % Platelet Count 139 130-400 10^3/uL Mean Platelet Volume 9.7 7.4-10.4 FL Neutrophils (%) (Auto) 53 42-75 % Lymphocytes (%) (Auto) 31 12-44 % Monocytes (%) (Auto) 12 0-12 % Eosinophils (%) (Auto) 1 0-10 % Basophils (%) (Auto) 2 0-10 % Neutrophils # (Auto) 2.7 1.8-7.8 X 10^3 Lymphocytes # (Auto) 1.6 1.0-4.0 X 10^3 Monocytes # (Auto) 0.6 0.0-1.0 X 10^3 Eosinophils # (Auto) 0.1 0.0-0.3 10^3/uL Basophils # (Auto) 0.1 0.0-0.1 10^3/uL Sodium Level 131 L 135-145 MMOL/L Potassium Level 4.4 3.6-5.0 MMOL/L Chloride Level 99 98-107 MMOL/L Carbon Dioxide Level 20 L 21-32 MMOL/L Anion Gap 12 5-14 MMOL/L Blood Urea Nitrogen 12 7-18 MG/DL Creatinine 0.97 0.60-1.30 MG/DL Estimat Glomerular Filtration Rate > 60 BUN/Creatinine Ratio 12 Glucose Level 308 H 70-105 MG/DL Lactic Acid Level 1.02 0.50-2.00 MMOL/L Calcium Level 9.1 8.5-10.1 MG/DL Corrected Calcium 9.3 8.5-10.1 MG/DL Total Bilirubin 0.7 0.1-1.0 MG/DL Aspartate Amino Transf (AST/SGOT) 15 5-34 U/L Alanine Aminotransferase (ALT/SGPT) 23 0-55 U/L Alkaline Phosphatase 88 40-136 U/L Total Protein 6.8 6.4-8.2 GM/DL Albumin 3.7 3.2-4.5 GM/DL My Orders Orders - PATRICIO ONEIL Cbc With Automated Diff (02/04/18 07:28) Comprehensive Metabolic Panel (02/04/18 07:28) Lactic Acid Analyzer (02/04/18 07:28) Fentanyl Injection (Sublimaze Injection (02/04/18 07:30) Ketorolac Injection (Toradol Injection) (02/04/18 07:30) Ondansetron Injection (Zofran Injectio (02/04/18 08:30) Ondansetron Injection (Zofran Injectio (02/04/18 08:45) Ct Sinus Complete Wo (02/04/18 08:59) Medications Given in ED Current Medications Medications Dose Ordered Sig/Edel Route Start Time Stop Time Status Last Admin Dose Admin Fentanyl Citrate 50 mcg ONCE ONCE IVP 02/04/18 07:30 02/04/18 07:31 DC 02/04/18 07:42 50 MCG Ketorolac Tromethamine 10 mg ONCE ONCE IVP 02/04/18 07:30 02/04/18 07:31 DC 02/04/18 07:42 10 MG Ondansetron HCl 4 mg ONCE ONCE IVP 02/04/18 08:30 02/04/18 08:31 DC 02/04/18 08:19 4 MG Ondansetron HCl 4 mg ONCE ONCE IVP 02/04/18 08:45 02/04/18 08:46 DC 02/04/18 08:46 4 MG Vital Signs/I&O 02/04/18 06:51 Temp 98.7 Pulse 104 B/P (MAP) 157/77 (103) Pulse Ox 95 O2 Delivery Room Air Progress Progress Note #1: Time: 07:16 Progress Note The patient received Rocephin yesterday as well as Flagyl for the Trichomonas. I would consider the Trichomonas handled. She is also put on Omnicef which she said she has taken 2 doses and would take her third dose this morning. She is on appropriate antibiotics for acute maxillary sinusitis versus cellulitis however she feels her symptoms are worsening. She has no acute airway involvement. Is been a little over 24 hours since she received her Rocephin so we could offer her another dose but is unreasonable to expect improvement in 1 day. Another option to help with her swelling might be to put her on some oral steroids for a couple days. So we discussed what is an appropriate expectation in and the patient's seems to be getting mostly on she's having a lot of pain and discomfort. We're going to try and get her pain under better control. She's not having any nausea right now although she does have a history of some nausea last couple days and was given Zofran for it. We will start an IV and get some blood because she still tachycardia in the 90s to 100. 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 We'll see what her response to the pain medicines and labs reveals. Progress Note #2: Time: 08:30 Progress Note There is a high degree of clinical suspicion for fungal rhinosinusitis given the patient is having quite a bit of facial pain and swelling and is on methotrexate and prednisone chronically. Ideally we should have her nasally scoped looking for any evidence of this. It's also too early to definitively say that she has failed antibacterial therapy. She is having nausea vomiting and retching so we gave her Zofran. If unable to get her nausea or pain adequately under control with a recent to keep her on observation and maybe have an ENT consult in the hospital versus have her see the ear nose and throat surgeon tomorrow in the clinic. Diagnostic Imaging Diagonstic Imaging: CT (without contrast) Plain Films/CT/US/NM/MRI: head (sinuses complete) Comments No fractures, fluid or destructive lesions in the sinuses. NAME: NATHAN MENDOZA [facility] REC#: [id number] PHYSICIAN: PATRICIO ONEIL MD CC: ALEXANDRA MORALES MD; PATRICIO ONEIL Page 1 of 1 RADIOLOGY REPORT VIA [facility]. [place], [place] CC: ALEXANDRA MORALES MD; PATRICIO ONEIL Page 1 of 1 RADIOLOGY REPORT NAME: NATHAN EMNDOZA [facility] REC#: [id number] PT STATUS: REG ER : 1965 PHYSICIAN: PATRICIO ONEIL MD ADMIT DATE: 02/04/18/ER Signed Date of Exam: 02/04/18 CT SINUS COMPLETE WO PROCEDURE: CT sinuses without contrast TECHNIQUE: Multiple contiguous axial images were obtained through the sinuses without the use of intravenous contrast. Coronal and sagittal reformations were then performed. INDICATION: Left-sided facial swelling x10 days. FINDINGS: There are enlarged lymph nodes noted along the mandibular angle on the left. Largest lymph node is along the superior margin of the parotid gland just anterior to the auditory canal measuring 1.4 cm. The maxillary sinuses are well-aerated and clear. The ethmoid sinuses and sphenoid sinuses are clear. The frontal sinuses are clear. Mastoid air cells are well-aerated and clear. There are no destructive bony changes. The maxilla is edentulous. IMPRESSION: 1. Paranasal sinuses are clear. 2. There is an enlarged preauricular lymph node along the superior margin of the left parotid gland measuring 1.4 cm. Dictated by: Dictated on workstation # [id number] Dict: 02/04/18 09 Trans: 02/04/18 1000 Interpreted by: ALEXANDRA MORALES MD Electronically signed by: ALEXANDRA MORALES MD 02/04/18 1000 Reviewed: Reviewed by Me Consults : Consulting Physician: MINA TEJADA Consults Notes Discussed case with her about the possibility of a fungal rhinosinusitis. She agrees it's possible and we should be concerned about it because they can occur rather rapidly. She suggests a CT scan of the sinuses and if it's negative then she would be happy to see the patient in the clinic tomorrow if the patient will just call. We will fax over a cover sheet. Also spoke with Dr. Brown on the phone and he recommends coverage with something against Staphylococcus such as doxycycline or Bactrim as well as me personally applied topically and he is happy to see the patient in the morning. Departure Impression Primary Impression: Cellulitis Qualified Codes: L03.211 - Cellulitis of face Disposition: 01 HOME, SELF-CARE Condition: Improved Departure-Patient Inst. Decision time for Depature: 10:09 Referrals: LINDSAY STRONG DO (PCP) Primary Care Physician MACY TAMAYO (Family) Primary Care Physician FAUSTO BROWN MD Patient Instructions: Cellulitis (Skin Infection), Adult (DC) Add. Discharge Instructions: Continue taking the Omnicef antibiotic twice a day. Start taking Bactrim DS one capsule twice a day. Apply mupirocin a thin layer to your left face twice a day. Use your pain medicines as necessary for pain. You can also use Aleve one to 2 tablets up to twice a day. Tomorrow morning call Dr. Brown and request an appointment in the next 1-2 days. Follow-up with your primary care doctor as necessary. All discharge instructions reviewed with patient and/or family. Voiced understanding. Scripts Mupirocin (Mupirocin) 1 Gm Oin.pf.jose 1 GM TP BID for 7 Days, #1 TUBE 0 Refills Prov: PATRICIO ONEIL 9/9/18 Sulfamethoxazole/Trimethoprim (Bactrim Ds Tablet) 1 Each Tablet 1 EACH PO BID for 7 Days, #14 TAB 0 Refills Prov: PATRICIO ONEIL 02/04/18 Work/School Note: Work Release Form Date Seen in the Emergency Department: Feb 04, 2018 Return to Work: Feb 09, 2018 Restrictions: No Restrictions Other Restrictions Listed Below: Please excuse/reschedule her scheduled court date on 02/07/18. PATRICIO ONEIL Feb 04, 2018 07:13
[2018-02-04] MEDS ORDERED: ALBU6.7H8 (07:14)
[2018-02-04] MEDS ORDERED: TIZA4TAB3 (07:14)
[2018-02-04] MEDS ORDERED: SLF10OP15 (07:14)
[2018-02-04] MEDS ORDERED: PRD20T (07:14)
[2018-02-04] MEDS ORDERED: NF-LOTEOS (07:14)
[2018-02-04] MEDS ORDERED: KETOROLAC 30 MG/ML VIAL IVP ONE (07:30)
[2018-02-04] MEDS ORDERED: fentaNYL INJECTION 100 MCG/2 ML AMP IVP ONE (07:30)
[2018-02-04 07:54] LABS: BASOPHILS # (AUTO) 0.1 10^3/uL (0.0-0.1); BASOPHILS % (AUTO) 2 % (0-10); EOSINOPHILS # (AUTO) 0.1 10^3/uL (0.0-0.3); EOSINOPHILS % (AUTO) 1 % (0-10); HEMATOCRIT 41 % (35-52); HEMOGLOBIN 13.9 G/DL (11.5-16.0); LYMPHOCYTES # (AUTO) 1.6 X 10^3 (1.0-4.0); LYMPHOCYTES % (AUTO) 31 % (12-44); MEAN CORPUSCULAR HEMOGLOBIN 26 PG (25-34); MEAN CORPUSCULAR HGB CONC 34 G/DL (32-36); MEAN CORPUSCULAR VOLUME 77 FL (80-99); MEAN PLATELET VOLUME 9.7 FL (7.4-10.4); MONOCYTES # (AUTO) 0.6 X 10^3 (0.0-1.0); MONOCYTES % (AUTO) 12 % (0-12); NEUTROPHILS # (AUTO) 2.7 X 10^3 (1.8-7.8); NEUTROPHILS % (AUTO) 53 % (42-75); PLATELET COUNT 139 10^3/uL (130-400); RED BLOOD COUNT 5.28 10^6/uL (4.35-5.85); RED CELL DISTRIBUTION WIDTH 14.5 % (10.0-14.5)
[2018-02-04 08:14] LABS: ALANINE AMINOTRANSFERASE 23 U/L (0-55); ALBUMIN 3.7 GM/DL (3.2-4.5); ALKALINE PHOSPHATASE 88 U/L (40-136); BILIRUBIN,TOTAL 0.7 MG/DL (0.1-1.0); BUN/CREATININE RATIO 12; CALCIUM 9.1 MG/DL (8.5-10.1); CARBON DIOXIDE 20 MMOL/L (21-32); CHLORIDE 99 MMOL/L (98-107); CREATININE SERUM 0.97 MG/DL (0.60-1.30); GFR ESTIMATED > 60; GLUCOSE 308 MG/DL (70-105); POTASSIUM 4.4 MMOL/L (3.6-5.0); SODIUM 131 MMOL/L (135-145); TOTAL PROTEIN 6.8 GM/DL (6.4-8.2)
[2018-02-04] MEDS ORDERED: ONDANSETRON 4 MG/2 ML (SDV) Z0FRAN IVP ONE ×2 (08:30→08:45)
--- NOTE | 2018-02-04 09:32 | Diagnostic Imaging Report ---
PROCEDURE: CT sinuses without contrast TECHNIQUE: Multiple contiguous axial images were obtained through the sinuses without the use of intravenous contrast. Coronal and sagittal reformations were then performed. INDICATION: Left-sided facial swelling x10 days. FINDINGS: There are enlarged lymph nodes noted along the mandibular angle on the left. Largest lymph node is along the superior margin of the parotid gland just anterior to the auditory canal measuring 1.4 cm. The maxillary sinuses are well-aerated and clear. The ethmoid sinuses and sphenoid sinuses are clear. The frontal sinuses are clear. Mastoid air cells are well-aerated and clear. There are no destructive bony changes. The maxilla is edentulous. IMPRESSION: 1. Paranasal sinuses are clear. 2. There is an enlarged preauricular lymph node along the superior margin of the left parotid gland measuring 1.4 cm. Dictated by: Dictated on workstation # [id number]
[2018-02-04] MEDS ORDERED: SULF1TAB35 PO (10:12)
[2018-02-04] MEDS ORDERED: MUPI1OIN6 TP (10:12)
[2018-02-04 10:42] VITALS: BP 129/75
[2018-02-05] MEDS ORDERED: PROM25TA14 PO (10:56)
== END 2018-02-04 10:42 | disposition home or self-care (01) ==
LOC: EDUNIT# 06:21 → ER 06:22
DX: L03.211 Cellulitis of face (principal); I10 Essential (primary) hypertension; F41.9 Anxiety disorder, unspecified; K21.9 Gastro-esophageal reflux disease without esophagitis; Z88.6 Allergy status to analgesic agent; Z88.8 Allergy status to other drugs, medicaments and biological substances; Z91.040 Latex allergy status; Z98.890 Other specified postprocedural states
CPT/HCPCS: 36415; 70486; 80053; 83605; 85025; 96374; 96375

== ENCOUNTER 2018-02-05 10:16 | Emergency (ER) | payer MEDICAID ==
[~2018-02-05] VITALS: Ht 157.5 cm; Wt 90.7 kg
[~2018-02-05 10:16] MED LIST changes: +ALBU6.7H8; +MUPI1OIN6 TP; +NF-LOTEOS; +PRD20T; +SLF10OP15; +SULF1TAB35 PO; +TIZA4TAB3
--- NOTE | 2018-02-05 10:52 | ED General ---
General Chief Complaint: General Problems/Pain Stated Complaint: SOA Nursing Triage Note: TO ED PER EMS PATIENT WAS SEEN IN ED YESTERDAY FOR CELLULITS OF FACE HAS A [address] BROWN TODAY. WAS ON PHONE WITH [facility] TRYING TO GET FOLLOW UP APPOINTMENT THEY TOLD HER THEY HAD ONE AT 6P [facility]I BECAME UPSET BECAUSE THEY COULD NOT GET HER IN SOONER AND TOOK LONG TIME FOR NURSE TO CALL HER BACK. HAS NOT HAD ANY OF HER MEDS FOR 2 DAYS INCLUDING MEDS FOR ANXIETY Nursing Sepsis Screen: No Definite Risk Source of Information: Patient, Family (daughters) History of Present Illness Date Seen by Provider: Feb 05, 2018 Time Seen by Provider: 10:20 Initial Comments The patient presents to the ER by EMS with a chief complaint that she was at home trying to negotiate getting an appointment to be seen by Kishor Dela Cruz at [facility] and was booked up and she was getting frustrated and is spiraled into a panic attack with heavy breathing and being upset tearful. She wanted to be seen today because she is having nausea and the Zofran that she was given from the ER yesterday was not working for her. She says it doesn't work for her daughter and his never worked for her in the past. She was trying to get some Phenergan. She is not able to take her mood medications Cymbalta or the antibiotics this morning. She is also diabetic and not able to eat or drink today. She is been having normal bowel movements and urinating normally. Her nausea secondary to her facial cellulitis which she says has improved today over yesterday because now her eyes open spontaneously. She still having some mattering and discharge from around the eye. She continues to use the medications as prescribed except for the missed doses this morning. She does have an appointment around 12:15 this afternoon with the ear nose and throat surgeon. She is still using methotrexate and prednisone for dermatomyositis. She is not having fevers or chills and has not actually vomited just had a lot of nausea. EMS reports a blood sugar that was 148. Allergies and Home Medications Allergies Coded Allergies: latex (Verified Allergy, Unknown, 02/03/18) sertraline (Verified Allergy, Unknown, 02/03/18) aspirin (Unverified Adverse Reaction, Severe, 11/12/10) Home Medications Mupirocin 1 Gm Oin.pf.jose, 1 GM TP BID Prescribed by: PATRICIO ONEIL on 02/04/18 1012 Sulfamethoxazole/Trimethoprim 1 Each Tablet, 1 EACH PO BID Prescribed by: PATRICIO ONEIL on 02/04/18 1012 Patient Home Medication List Home Medication List Reviewed: Yes Review of Systems Review of Systems Constitutional: No chills, No diaphoresis EENTM: No ear pain, No mouth pain Respiratory: No cough, No short of breath Cardiovascular: No chest pain, No palpitations Gastrointestinal: No abdominal pain, No constipation, No diarrhea; nausea; No vomiting Past Utzkplv-[place]-Yuurmp Hx Patient Social History Alcohol Use: Denies Use Recreational Drug Use: No Recent Foreign Travel: No Contact w/Someone Who Travel: No Recent Infectious Disease Expo: No Recent Hopitalizations: No Immunizations Up To Date Tetanus Booster (TDap): Unknown Seasonal Allergies Seasonal Allergies: No Past Medical History Surgeries: Yes Section Respiratory: Yes Cardiac: Yes Hypertension Neurological: No Genitourinary: No Gastrointestinal: Yes Gastroesophageal Reflux Musculoskeletal: Yes (myositis) Endocrine: No HEENT: No Cancer: No Psychosocial: Yes Anxiety Integumentary: No Blood Disorders: No Family Medical History No Pertinent Family Hx Physical Exam Vital Signs Capillary Refill : Less Than 3 Seconds Height, Weight, BMI Height: 5'2.00" Weight: 200lbs. oz. 90.777832io; BMI Method:Estimated General Appearance: Mild Distress, Obese Eyes: Right Eye Normal Inspection; Left Eye PERRL, Left Eye EOMI, Left Eye Other (injected conjunctiva with a thin mucousy mattering and swollen soft tissue periorbitally) HEENT: PERRL/EOMI, Pharynx Normal, Moist Mucous Membranes, Other Neck: Full Range of Motion, Non Tender (producing tears) Respiratory: Lungs Clear, Normal Breath Sounds, No Accessory Muscle Use, No Respiratory Distress Cardiovascular: Regular Rate, Rhythm, Normal Peripheral Pulses, Tachycardia ( 100) Skin: Other (erythematous periorbital and left facial edema/cellulitis with a small less than 1 mm punctate him clear vesicle seen on the upper left eyelid.) Progress/Results/Core Measures Suspected Sepsis Recent Fever Within 48 Hours: No Infection Criteria Present: None New/Unexplained Altered Menta: No Sepsis Screen: No Definite Risk SIRS Temperature:95.1 Pulse: 110 Respiratory Rate: 18 Blood Pressure 127 /100 Mean: 109 Results/Orders My Orders Orders - PATRICIO ONEIL Ondansetron Oral Dissolve Tab (Zofran (02/05/18 11:00) Promethazine Tablet (Phenergan Tablet) (02/05/18 11:00) Vital Signs/I&O Capillary Refill : Less Than 3 Seconds Blood Pressure Mean: 109 Progress Note : Time: 10:53 Progress Note Patient's shortness of breath and tachycardia seems to be from her being upset. After talking to her for short while she is calm down and we have come up with a plan to get her some Phenergan and Zofran and then she can go home take her medications that she missed this morning and make her appointment with Dr. Brown , ENT. She is okay with this plan. Her goal all along was to get seen by her primary doctor and get something for her nausea and anxiety. I have offered her Ativan at this time however she is declined because she says Phenergan lays her out. Her oldest and second oldest daughters are present and they will help her get to her appointments. From an infectious standpoint her cellulitis has improved significantly since yesterday and that her eye is now spontaneously opened and she has less swelling than yesterday. Departure Impression Primary Impression: Panic attack Additional Impression: Facial cellulitis Disposition: 01 HOME, SELF-CARE Condition: Improved Departure-Patient Inst. Decision time for Depature: 10:54 Referrals: [facility] [place] ([place]) Primary Care Physician Patient Instructions: Panic Disorder (DC) Add. Discharge Instructions: If you have nausea you can use Phenergan 1 tablet every 8 hours by mouth. You can also use the Zofran if you're having vomiting and unable to swallow the Phenergan. Follow up later this week with your primary care provider and please make your appointment with the ear nose and throat doctor Dr. Brown today. If you have fevers chills worsening swelling or other worrisome symptoms such as unable to control your nausea or pain then you may return to the nearest ER. All discharge instructions reviewed with patient and/or family. Voiced understanding. Scripts Promethazine HCl (Promethazine Tablet) 25 Mg Tablet 25 MG PO Q8H PRN for NAUSEA/VOMITING for 14 Days, #15 TAB 0 Refills Prov: PATRICIO ONEIL 02/05/18 Work/School Note: Family Work Note Patient Received Medical Care In the Emergency Department On: Feb 05, 2018 Patient Will Be Able to Return to Work/School On: Feb 05, 2018 Patient Restrictions: none. Accompany patient to appt at 1300. Copy Copies To 1: FAUSTO BROWN MD; LINDSAY STRONG TITUS J Feb 05, 2018 10:52
[2018-02-05] MEDS ORDERED: PROM25TA14 PO (10:56)
[2018-02-05] MEDS ORDERED: ONDANSETRON 4 MG (ZOFRAN) ORAL DISSOLVE TAB PO ONE (11:00)
[2018-02-05] MEDS ORDERED: PROMETHAZINE 25 MG (PHENERGAN) TAB PO ONE (11:00)
[2018-02-05 11:08] VITALS: BP 111/94
== END 2018-02-05 11:06 | disposition home or self-care (01) ==
LOC: EDUNIT# 10:16 → ER 10:17
DX: F41.0 Panic disorder [episodic paroxysmal anxiety] (principal); L03.211 Cellulitis of face; M33.13 Other dermatomyositis without myopathy; I10 Essential (primary) hypertension; K21.9 Gastro-esophageal reflux disease without esophagitis; Z98.890 Other specified postprocedural states; Z91.040 Latex allergy status; Z88.6 Allergy status to analgesic agent; Z88.8 Allergy status to other drugs, medicaments and biological substances; Z79.52 Long term (current) use of systemic steroids

== ENCOUNTER → 2018-04-30 | Outpatient (CLI) | payer OTHER ==
[~2018-04-30] MED LIST changes: +PROM25TA14 PO
--- NOTE | 2018-04-30 15:22 | Diagnostic Imaging Report ---
INDICATION: Chronic back pain. TIME OF EXAM: 10:20 AM FINDINGS: Three views of the lumbar spine were obtained. Curvature is normal. There is minimal anterolisthesis of L5 on S1. Vertebral body heights are maintained. No fractures are seen. IMPRESSION: No acute bony abnormality is detected. Dictated by: Dictated on workstation # [id number]
== END ==
LOC: RAD 09:40
PROVIDERS: ATTEND Neuromusculoskeletal Medicine, Sports Medicine
DX: Z02.71 Encounter for disability determination (principal); G89.29 Other chronic pain; M54.5 Low back pain
CPT/HCPCS: 72100

== ENCOUNTER 2018-05-09 22:07 | Observation (INO) | payer MEDICAID, OTHER ==
[~2018-05-09] VITALS: Ht 157.5 cm; Wt 113.4 kg
[~2018-05-09 22:07] MED LIST changes: -ALBU6.7H8; +ALBU6.7H8 INH; -PRD20T; +PRD20T PO
--- OUTSIDE RECORDS SUMMARY | 2018-05-09 22:22 | XMS REPORT ---
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 Name Role Phone SUNNY WONG Unavailable PROBLEMS Type Condition ICD9-CM Code SYF35-VY Code Onset Dates Condition Status SNOMED Code Problem Dermatomyositis M33.90 Active 117465367 Problem Lumbago with sciatica, right side M54.41 Active 292926622 Problem Morbid (severe) obesity due to excess calories E66.01 Active 017439992 Problem Diabetes with other specified manifestations, type II or unspecified type, not stated as uncontrolled 250.80 Active 679359146 Problem Osteoarthritis of right knee, unspecified osteoarthritis type M17.9 Active 342687661 Problem Hypertension, unspecified type I10 Active 21202237 Problem Menopause Z78.0 Active 585796984 Problem Diabetes type 2, controlled E11.9 Active 99132659 Problem Facial droop R29.810 Active 45263828 Problem Gait disturbance R26.9 Active 80917253 Problem Other specified mental disorders due to known physiological condition F06.8 Active 44603963 Problem Frequent falls R29.6 Active 998634538 Problem Plantar warts B07.0 Active 73501983 Problem Arthritis M19.90 Active 7203147 Problem Anxiety F41.9 Active 40902248 Problem Other chronic pain G89.29 Active 45407676 Problem Controlled type 2 diabetes mellitus without complication, without long -term current use of insulin E11.9 Active 495131266 Problem Body mass index (BMI) of 45.0-49.9 in adult Z68.42 Active 733770786 Problem Allergic rhinitis due to pollen J30.1 Active 27633349 Problem Plantar wart of both feet B07.0 Active [id number] Problem Tachycardia with heart rate 121-140 beats per minute R00.0 Active 4803880 Problem Mood disorder F39 Active 29071077 Problem Lumbago with sciatica, left side M54.42 Active 914350841 Problem Enlarged thyroid gland E04.9 Active 2629889 ALLERGIES No Information ENCOUNTERS Encounter Location Date Diagnosis [facility] [id number] [address] May, [facility] [id number] [address] 4048 May, [facility] [id number] [place] [address] 14204- 2113 May, [facility] [id number] [address] 8233 May, [facility] [id number] [place] [address] 98864- 3076 May, [facility] [id number] [place] [address] 24038- 3394 May, [facility] [id number] [place] [address] 03696- 4093 Apr, [facility] [id number] [place] [address] 67928- 4322 Apr, [facility] [id number] [place] [address] 22629- 9227 Mar, Mood disorder F39 [facility] [address] [address] Mar, [facility] [address] [address] 0[address] Mar, [facility] [address] [place] [address] 8277 Mar, BMI 45.0-49.9, adult Z68.42 [facility] [address] [address] 6936 Mar, [facility] [address] [place] [address] 3449 Mar, BMI 45.0-49.9, adult Z68.42 ; Lupus erythematosus L93.0 and Dermatomyositis M33.90 [facility] [id number] [place] [address] 80795- 5721 Mar, Pain in right knee M25.561 and Other chronic pain G89.29 [facility] WALK IN [facility] [id number] [place] [address] 68467 -5209 Mar, Vaginal itching N89.8 ; Urinary tract infection, site not specified N39.0 ; Hematuria, unspecified R31.9 and Vaginal arabella B37.3 [facility] [id number] [place] [address] 82492- 2404 Mar, Mood disorder F39 [facility] [id number] [place] [address] 11055- 5159 Feb, BMI 40.0-44.9, adult Z68.41 ; Diabetes type 2, controlled E11.9 ; Osteoarthritis of right knee, unspecified osteoarthritis type M17.9 ; Dermatomyositis M33.90 ; Hypertension, unspecified type I10 and Fatigue, unspecified type R53.83 [facility] [id number] [place] [address] 67291- 9295 Feb, [facility] [id number] [place] [address] 02489- 5195 Feb, BMI 45.0-49.9, adult Z68.42 [facility] [id number] [place] [address] 35706- 3349 Feb, Mood disorder F39 [facility] [id number] [place] [address] 50643- 0895 Feb, [facility] [id number] [place] [address] 36477- 6804 Feb, Mood disorder F39 [facility] [id number] [place] [address] 76871- 4638 Feb, Other chronic pain G89.29 ; Anxiety F41.9 and Diabetes with other specified manifestations, type II or unspecified type, not stated as uncontrolled 250.80 [facility] [id number] [place] [address] 57110- 4114 Feb, BMI 40.0-44.9, adult Z68.41 [facility] [id number] [place] [address] 07477- 4090 Feb, Pain in right knee M25.561 and Other chronic pain G89.29 [facility] [id number] [place] [address] 65084- 8040 Feb, [facility] [id number] [place] [address] 44461- 9036 Feb, BMI 45.0-49.9, adult Z68.42 ; Gait disturbance R26.9 ; Other specified mental disorders due to known physiological condition F06.8 ; Weakness R53.1 ; Frequent falls R29.6 and Self-care deficit for bathing R46.0 [facility] [place] [id number] [place] [address] 45976- 1549 Feb, Pain in right knee M25.561 and Other chronic pain G89.29 [facility] [id number] [place] [address] 54745- 5850 Jan, Mood disorder F39 [facility] [id number] [place] [address] 39762- 3020 27 Jan, 2018 BMI 45.0-49.9, adult Z68.42 and 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 [facility] [id number] [place] [address] 56212- 9250 Jan, [facility] [address] 86245- 0160 Jan, [facility] [id number] [place] [address] 40652- 0072 Jan, [facility] [id number] [place] [address] 59671- 5059 Jan, 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 [facility] [id number] [place] [address] 87731- 0565 Jan, [facility] [address] 90480- 4395 Jan, [facility] [id number] [place] [address] 93925- 5705 Jan, [facility] [address] 15790- 1169 Jan, Allergic reaction to drug, initial encounter T78.40XA [address] [place] [address] 02857- 4372 17 Jan, 2018 BMI 45.0-49.9, adult Z68.42 and Facial droop R29.810 [place] [address] 25975- 7330 14 Jan, 2018 Mood disorder F39 [place] [address] 21844- 7071 11 Jan, 2018 Dermatomyositis M33.90 and BMI 40.0-44.9, adult Z68.41 [facility] [id number] [place] [address] 95996- 8315 10 Jan, 2018 [facility] [id number] [place] [address] 82241- 8244 05 Jan, 2018 [place] [address] 44329- 6811 04 Jan, 2018 Irritation of left eye H57.8 and BMI 40.0-44.9, adult Z68.41 [place] [address] 42117- 4574 31 Dec, 2017 Diabetes type 2, controlled E11.9 [facility] [id number] [place] [address] 70397- 2500 Dec, Acute right ankle pain M25.571 [facility] [id number] [place] [address] 96151- 8556 Dec, Other chronic pain G89.29 ; Diabetes type 2, controlled E11.9 ; Gait disturbance R26.9 ; Weakness R53.1 and Muscle spasm M62.838 [facility] [id number] [place] [address] 36635- 7617 Dec, Acute non-recurrent maxillary sinusitis J01.00 [facility] [address] 07186- 1870 Dec, [facility] [address] 10059- 3466 Dec, [facility] [address] 91343- 1634 Dec, Acute non-recurrent maxillary sinusitis J01.00 [facility] [address] 35510- 3543 Dec, Lumbago with sciatica, right side M54.41 and Lupus erythematosus L93.0 [facility] [address] 66185- 5969 Dec, Mood disorder F39 [facility] [id number] [place] [address] 74016- 1070 Dec, Mood disorder F39 [facility] [id number] [place] [address] 47640- 4596 Dec, [facility] [id number] [place] [address] 08431- 5677 Dec, Acute right ankle pain M25.571 [facility] [address] 61915- 3794 Nov, Lumbar radiculopathy M54.16 [facility] [id number] [place] [address] 59530- 2173 Nov, [facility] [address] [place] [address]- 2042 Nov, Mood disorder F39 [facility] [id number] [place] [address] 10559- 1457 Nov, Lumbago with sciatica, right side M54.41 and Other chronic pain G89.29 [facility] [address], [place] [address]- 8926 Nov, Acute right ankle pain M25.571 [facility] [id number] [place] [address] 50467- 5616 Nov, [facility] [id number] [place] [address] 20019- 3554 Oct, [facility] [id number] [place] [address] 34063- 9196 Oct, Plantar wart of both feet B07.0 [facility] [id number] [place] [address] 98863- 1961 Oct, [facility] [id number] [place] [address] 89009- 3417 Oct, Acute right ankle pain M25.571 and Plantar wart of both feet B07.0 [facility] [address], [place] [address]- 5891 September, Other chronic pain G89.29 [facility] [id number] [address]- 5259 September, Other chronic pain G89.29 [facility] [address], [place] [address]- 0732 September, Other chronic pain G89.29 [facility] [id number] [place] [address] 683817- 8220 Aug, Mood disorder F39 [facility] [address], [place] [address]- 4524 Aug, Other chronic pain G89.29 ; Controlled type 2 diabetes mellitus without complication, without long-term current use of insulin E11.9 ; Low back pain M54.5 and Tinea corporis B35.[address] 20367- 1643 Aug, Mood disorder F39 and Anxiety F41.[address] 95752- 7683 Aug, Mood disorder F39 and Anxiety F41.[address] 47757- 8764 Jul, [facility] [address] [address]852 -9076 Jul, Scabies B86 and BMI 45.0-49.9, adult Z68.[address] 79049- 2856 Jul, [facility] [address] 58971- 0575 Jul, Mood disorder F39 and Anxiety F41.[address] 87307- 4389 Jul, [facility] WALK IN [address] [address]40 -2809 27 Jun, 2017 Bronchitis J40 ; Dark urine R82.99 and BMI 45.0-49.9, adult Z68.[address] 10040- 0550 14 Jun, 2017 Acute pain of right shoulder M25.511 and Acute pain of right knee M25.[address] 50776- 1214 May, BMI 40.0-44.9, adult Z68.41 ; Controlled type 2 diabetes mellitus without complication, without long-term current use of insulin E11.9 ; Muscle cramping R25.2 ; Hot flashes R23.2 ; Mood disorder F39 ; Anxiety F41.9 and Morbid (severe) obesity due to excess calories E66.01 [facility] [place] [id number] [place] [address] 37101- 9593 May, BMI 40.0-44.9, adult Z68.41 ; Controlled type 2 diabetes mellitus without complication, without long-term current use of insulin E11.9 ; Muscle cramping R25.2 and Hot flashes R23.2 [place] [place] [address] 13746- 3661 May, Tachycardia with heart rate 121-140 beats per minute R00.0 ; Morbid (severe) obesity due to excess calories E66.01 ; Diabetes type 2, controlled E11.9 and Enlarged thyroid gland E04.[address] 76340- 7270 25 May, 2017 Encounter for well woman [...] Dysuria R30.0 and Screening breast examination Z12.31 [id number] [place] [address] 45064- 5943 Apr, Mood disorder F39 ; Other chronic pain G89.29 and Anxiety F41.9 [id number] [place] [address] 13387- 7452 Apr, Lumbago with sciatica, left side M54.42 and Other chronic pain G89.29 [facility] [id number] [place] [address] 55049- 1606 Apr, Lupus erythematosus L93.[address] 02189- 3197 Mar, Plantar wart of both feet B07.0 [facility] [id number] [place] [address] 61108- 1936 Mar, Lupus erythematosus L93.0 and Sinus drainage J34.89 [facility] [id number] [place] [address] 06747- 2546 Mar, Mood disorder F39 ; Other chronic pain G89.29 and Anxiety F41.9 [facility] [id number] [place] [address] 14285 2546 Mar, Mood disorder F39 ; Arthritis M19.90 and Plantar warts B07.0 [facility] [id number] [place] [address] 87878- 8697 Feb, Lupus erythematosus L93.0 [facility] [id number] [place] [address] 76833- 5132 Feb, Other chronic pain G89.29 [facility] [id number] [place] [address] 77822- 8528 Feb, Mood disorder F39 and Anxiety F41.9 [facility] [id number] [place] [address] 79812- 2840 Jan, [facility] [id number] [place] [address] 25155- 6080 Jan, Mood disorder F39 [facility] [id number] [place] [address] 87584- 0261 Dec, Nail, ingrown L60.0 [facility] [id number] [place] [address] 91330- 8799 Dec, Nail, ingrown L60.0 [facility] [id number] [place] [address] 06890- 4305 Nov, Mood disorder F39 and Anxiety F41.9 [facility] [id number] [place] [address] 27305- 0593 Nov, Sinus drainage J34.89 ; Hot flashes R23.2 ; Anxiety F41.9 and Diabetes type 2, controlled E11.9 [facility] [id number] [place] [address] 75115- 6768 Nov, Nail, ingrown L60.0 [facility] [id number] [place] [address] 39782- 1346 Oct, Anxiety F41.9 and Mood disorder F39 [facility] [id number] [place] [address] 63657- 4125 Oct, Nail, ingrown L60.0 and Anxiety F41.9 [facility] [id number] [place] [address] 25119- 9706 Oct, Lupus erythematosus L93.0 [facility] [id number] [place] [address] 24041- 0315 September, [facility] [id number] [place] [address] 96397- 0765 September, [facility] [id number] [place] [address] 50917- 8905 September, Lupus erythematosus L93.0 [facility] [id number] [place] [address] 97445- 3724 Aug, [facility] [id number] [place] [address] 02962- 9947 Aug, Mood disorder F39 and Anxiety F41.9 [facility] [id number] [place] [address] 91695- 4728 Aug, Lupus erythematosus L93.0 ; Diabetes type 2, controlled E11.9 and Localized edema R60.0 [facility] [id number] [place] [address] 26253- 8988 Aug, [facility] [id number] [place] [address] 49982- 4510 Jul, Anxiety F41.9 and Mood disorder F39 [facility] [place] [id number] [place] [address] 08876- 1795 Jul, Diabetes type 2, controlled E11.9 [facility] [id number] [place] [address] 37871- 2964 Jun, Anxiety F41.9 [facility] [place] [id number] [place] [address] 35889- 3483 May, [facility] [place] [id number] [place] [address] 75650- 4531 May, [place] [address] 74944- 2764 May, Nausea R11.0 ; Other chronic pain G89.29 and Pain in right knee M25.561 [place] [address] 41112- 1488 May, [place] [address] 92684- 1953 Apr, Tear of medial meniscus of right knee, current, unspecified tear type, subsequent encounter S83.241D and Tear of lateral meniscus of right knee, current, unspecified tear type, subsequent encounter S83.281D [facility] [id number] [place] [address] 32372- 4165 Apr, Anxiety F41.9 and Mood disorder F39 [facility] [place] [id number] [place] [address] 01246- 6170 Apr, Anxiety F41.9 [facility] [id number] [place] [address] 73926- 8674 Apr, [facility] [place] [id number] [place] [address] 07210- 7127 Mar, [facility] [place] [id number] [place] [address] 75880- 7826 Mar, Lupus erythematosus L93.0 and Diabetes type 2, controlled E11.9 [facility] [id number] [place] [address] 30797- 7279 Mar, Mood disorder F39 [facility] [id number] [place] [address] 88200- 0356 Mar, Tear of lateral meniscus of right knee, current, unspecified tear type, initial encounter S83.281A and Osteoarthritis of right knee, unspecified osteoarthritis type M17.9 [facility] [id number] [place] [address] 72648- 8711 Mar, [facility] [id number] [place] [address] 96839- 5708 Feb, Mood disorder F39 [facility] [id number] [place] [address] 87228- 3666 Feb, Rash R21 [facility] [id number] [place] [address] 10987- 4672 Feb, [facility] [id number] [place] [address] 83420- 4532 Jan, Other chronic pain G89.29 and Muscle spasm M62.838 [facility] [id number] [place] [address] 99412- 6856 Jan, Mood disorder F39 [facility] [address] [place] [address] 07326 2543 Jan, Pain in right knee M25.561 ; Other chronic pain G89.29 and Muscle spasm M62.838 [facility] [id number] [place] [address] 02617 2549 Dec, [facility] [id number] [place] [address] 89215 2546 Dec, [facility] [id number] [place] [address] 62296 2544 Nov, [facility] [id number] [place] [address] 98030- 3011 Nov, Mood disorder F39 [facility] [id number] [place] [address] 93105- 3848 Nov, Diabetes type 2, controlled E11.9 ; Bronchitis J40 ; Edema, unspecified type R60.9 ; Weight gain R63.5 and Right knee pain, unspecified chronicity M25.561 [place] [id number] [place] [address] 99534- 7592 Oct, Mood disorder F39 [place] [id number] [place] [address] 06866- 0176 Oct, Lupus erythematosus L93.0 and Bilateral edema of lower extremity R60.0 [place] [id number] [place] [address] 73263- 9772 Oct, Mood disorder F39 and Anxiety F41.9 [place] [id number] [place] [address] 06075- 8276 September, Mood disorder F39 ; Anxiety F41.9 and Anger reaction R45.4 [place] [id number] [place] [address] 91439- 9069 September, Diabetes type 2, controlled E11.9 ; Edema, unspecified type R60.9 and Fatigue, unspecified type R53.83 [place] [id number] [place] [address] 99920- 5576 Aug, Mood disorder F39 and Generalized anxiety disorder F41.1 [place] [id number] [place] [address] 21687- 0580 Aug, Diabetes type 2, controlled E11.9 ; Sinusitis J32.9 and Mood disorder F39 [place] [id number] [place] [address] 01689- 8362 Aug, Lupus erythematosus L93.0 [place] [id number] [place] [address] 88611- 7443 Aug, [place] [address] [place] [address]- 5936 07 Aug, 2015 [facility] [address] [place] [address] 45628- 1506 Jul, Diabetes type 2, controlled E11.9 [facility] [id number] [place] [address] 07749 2546 Jul, Mood disorder F39 and Depression F32.9 [facility] [id number] [place] [address] 54785 2546 Jul, Lupus erythematosus L93.0 and Diabetes type 2, controlled E11.9 [facility] [id number] [place] [address] 45563- 9096 Jul, Mood disorder F39 and Anxiety F41.9 [facility] [id number] [place] [address] 12449- 5706 Jul, [facility] [id number] [place] [address] [id number] 2546 Jul, [facility] [id number] [place] [address] 77787- 3451 Jun, Mood disorder F39 and Anxiety F41.9 [facility] [id number] [address] Jun, Mood disorder F39 [facility] [id number] [address] 2546 18 Jun, 2015 [facility] [id number] [address]46 15 Jun, 2015 [facility] [id number] [address] 1726 08 Jun, 2015 Mood disorder F39 [facility] [id number] [address]- 25[address] Jun, [facility] [id number] [place] [address] 25318- 9590 May, [facility] [id number] [place] [address] 29833- 5729 May, [facility] [id number] [place] [address] 59158- 4987 May, [facility] [id number] [place] [address] 50937- 5520 May, [facility] [id number] [place] [address] 16645- 5577 May, Anxiety F41.9 ; Dermatomyositis M33.90 and Diabetes type 2, controlled E11.9 [facility] [id number] [place] [address] [id number] -[phone] May, Sinusitis J32.9 and Cough R05 [facility] [id number] [place] [address] 43900- 5769 May, Mood disorder F39 [facility] [id number] [place] [address] 86896- 4440 May, Adjustment disorder with mixed anxiety and depressed mood F43.23 [facility] [id number] [place] [address] 97669- 3882 Apr, [facility] [id number] [place] [address] 24964- 8516 Apr, [facility] [id number] [place] [address] 98340- 1145 Apr, Generalized anxiety disorder F41.1 and Mood disorder F39 [facility] [id number] [place] [address] 97476- 0211 Mar, [facility] [id number] [place] [address] 37995- 7715 Mar, [facility] [id number] [place] [address] 65929- 7067 Mar, [facility] [address] [address]- [address]578 Mar, Mood disorder F39 [address] [place] [id number] [place] [address] 45715- 6384 Feb, [place] [address] [id number] [id number] Feb, Diabetes E11.9 and Bronchitis J40 [place] [address] [address]- [address]88 Feb, [place] [address] [address]- 0895 Feb, [place] [address] 26103- 9855 Feb, Major depression, recurrent, full remission F33.42 and KELLY ( generalized anxiety disorder) F41.[address] [address]- 9546 Feb, [place] [address] 79661- 2366 Feb, Single major depressive episode, in partial or unspecified remission F32.[address] 84968- 9639 Jan, Fatigue 780.79 [place] [id number] [place] [address] 37843- 7844 Jan, [place] [address] 04048- 0100 Jan, Diabetes with other specified manifestations, type II or unspecified type, not stated as uncontrolled 250.[address] 78575- 0727 Jan, [place] [id number] [place] [address] 68899- 6579 Dec, Hot flashes 627.2 ; Memory loss 780.93 and Joint pain 719.40 [place] [address]27 Dec, Major depression, recurrent 296.30 ; Generalized anxiety disorder 300.02 ; Adjustment disorder with depressed mood 309.0 and No condition on [place] II V71.09 [place] [id number] [place] [address] 14412- 2651 Dec, [place] [address] [place] [id number] [place] [address] 53982- 7475 Nov, Cognitive and neurobehavioral dysfunction 294.9 ; Major depressive disorder, recurrent episode, moderate degree 296.32 and Anxiety state , unspecified 300.00 [place] [id number] [place] [address] 40430- 3280 Nov, [place] [address] [place] [id number] [place] [address] 99695- 9541 Nov, Bronchitis 490 and Diabetes with other specified manifestations, type II or unspecified type, not stated as uncontrolled 250.80 [place] [id number] [place] [address] 20308- 2067 Nov, Major depressive disorder, recurrent episode, moderate 296.32 and Anxiety disorder, unspecified 300.00 [place] [id number] [place] [address] 23636- 1784 Nov, Anxiety, generalized 300.02 ; Intermittent explosive disorder 312.34 ; No condition on [place] II V71.09 and No condition on axis III V71.09 [place] [id number] [place] [address] 87458- 6666 Oct, Diabetes with other specified manifestations, type II or unspecified type, not stated as uncontrolled 250.80 ; Urinary tract infection, site not specified 599.0 and Bronchitis [id number] [place] [address] 31396- 1676 Oct, Intermittent explosive disorder 312.34 ; Bipolar 1 disorder , depressed, moderate 296.52 ; Major depression, chronic 296.20 ; No condition on [place] II V71.09 and No condition on axis III V71.09 [place] [address] [address] 230[address] 15 Oct, 2014 Major depressive disorder, recurrent episode, moderate 296.32 ; Anxiety state 300.00 ; Cognitive decline 294.9 and No condition on [place] II V71.09 [facility] [address] [address]- 1637 Oct, [facility] [address] [place] [id number] [place] [address] 832027- 4595 Oct, Major depressive disorder, recurrent episode, moderate 296.32 ; Anxiety disorder, unspecified 300.00 and Persistent disorder of initiating or maintaining sleep 307.42 [place] [address] [place] [id number] [place] [address] 87737- 2457 September, Diabetes with other specified manifestations, type II or unspecified type, not stated as uncontrolled 250.80 ; Memory loss 780.93 and Cognitive complaints 799.59 [place] [address] [place] [id number] [place] [address] 31851- 0529 September, No condition on [place] II V71.09 ; Major depression, recurrent 296.30 and Persistent mood [affective] disorder, unspecified 296.90 [facility] [address] [place] [id number] [place] [address] 24519- 0561 Aug, [facility] [address] [address]- 4816 Aug, [facility] [address] [address]- 6190 Aug, [facility] [id number] [place] [address] 713788- 4430 Jul, [facility] [address] [place] [id number] [place] [address] 56027356- 0620 Jul, [facility] [address] 4768 Jul, [facility] [address] [place] [id number] [place] [address] 21419- 5101 Jul, [facility] [place] [facility] [address] [facility] [id number] [place] [address]- 6809 Jul, [facility] [place] [facility] [address] [facility] [id number] [place] [address]- 8270 Jun, 2014 [facility] [place] [facility] [address] [facility] [id number] [place] [address]- 2013 Jun, 2014 [facility] [place] [facility] [address] [facility] [id number] [place] [address]- 0544 Jun, 2014 [facility] [place] [facility] [address] [facility] [id number] [place] [address]- 9410 Jun, 2014 [facility] [place] [facility] [address] [facility] [id number] [place] [address]- 8895 Jun, 2014 [facility] [place] [facility] [address] [place] [id number] [address]- 3551 Jun, 2014 [facility] [place] [facility] [address] [facility] [id number] [place] [address]- 3067 Jun, 2014 [facility] [place] [facility] [address] [place] [id number] [address]- 5198 Jun, 2014 [facility] [place] [facility] [address] [facility] [id number] [place] [address]- 8835 Jun, 2014 [facility] [place] [facility] [address] [place] [id number] [address]- 3128 Jun, 2014 [facility] [place] [facility] [address] [facility] [id number], [place] [address]- 1123 Jun, 2014 [facility] [place] [facility] [address] [facility] [id number] [place] [address]- 0778 Jun, 2014 [facility] [place] [facility] [address] [facility] [id number], [place] [address]- 6506 Jun, 2014 [facility] [place] [facility] [address] [facility] [id number], [place] [address] 1959 May, [facility] [place] [facility] [address] [id number] [place] [address]- 9142 May, [facility] [place] [facility] [address] [id number] [place] [address]- 3244 Apr, [facility] [place] [facility] [address] [id number] [place] 7369 Apr, [facility] [place] [facility] [address] [id number] [place] [address]- 2298 Apr, [facility] [place] [facility] [address] [id number] [place] [address]- 6476 Apr, [facility] [place] [facility] [address] [id number] [place] [address]- 8324 Apr, [facility] [place] [facility] [address] [id number] [place] [address]- 4057 Apr, [facility] [place] [facility] [address] [id number] [place] [address]- 8352 Apr, [facility] [place] [facility] [address] [id number] [place] [address]- 6629 Apr, [facility] [place] [facility] [address] [id number] [place] [address]- 2847 Apr, [facility] [place] [facility] [address] [id number] [place] [address]- 8498 Apr, [facility] [place] [facility] [address] [id number] [place] [address]- 5121 Apr, [facility] [place] [facility] [address] [id number] [place] [address]- 5708 Apr, [facility] [place] [facility] [address] [id number] [place] [address]- 5555 Apr, [facility] [place] [facility] [address] [id number] [place] 4624 Apr, [facility] [place] [facility] [address] [id number], [place] [address]- 8314 Apr, [facility] [place] [facility] [address] [id number] [place] [address]- 9110 Apr, [facility] [place] [facility] [address] [id number] [place] [address]- 9703 Apr, [facility] [place] [facility] [address] [id number] [place] [address]- 2286 Apr, [facility] [place] [facility] [address] [id number] [place] [address]- 0555 Apr, [facility] [place] [facility] [address] [id number] [place] [address]- 2558 Apr, [facility] [place] [facility] [address] [id number] [place] [address]- 2994 Mar, [facility] [place] [facility] [address] [id number] [place] [address]- 4139 Mar, [facility] [place] [facility] [address] [id number] [place] [address]- 5270 Mar, [facility] [place] [facility] [address] [id number] [place] [address]- 0634 Mar, [facility] [place] [facility] [address] [id number] [place] [address]- 0915 Mar, [facility] [place] [facility] [address] [id number], [place] [address]- 0427 Mar, [facility] [place] [facility] [address] [id number], [place] [address]- 8232 Mar, [facility] [place] [facility] [address] [id number] [place] [address]- 5191 Mar, [facility] [place] [facility] [address] [id number] [place] [address]- 8832 Mar, [facility] [place] [facility] [address] [id number] [place] [address]- 5029 Mar, [facility] [place] [facility] [address] [id number] [place] [address]- 7241 Mar, [facility] [place] [facility] [address] [id number] [place] [address]- 1390 Mar, [facility] [place] [facility] [address] [id number] [place] [address]- 1153 Mar, [facility] [place] [facility] [address] [id number] [place] [address]- 0414 Feb, [facility] [place] [facility] [address] [id number] [place] [address]- 5081 Feb, [facility] [place] [facility] [address] [id number] [place] [address]- 3115 Feb, [facility] [place] [facility] [address] [id number] [place] [address]- 8254 Feb, [facility] [place] [facility] [address] [id number] [place] [address]- 9597 Feb, [facility] [place] [facility] [address] [id number] [place] [address]- 4713 Feb, [facility] [place] [facility] [address] [id number] [place] [address]- 8331 Feb, [facility] [place] [facility] [address] [id number] [place] [address]- 1072 Feb, [facility] [place] [facility] [address] [id number] [place] [address]- 3331 Feb, [facility] [place] [facility] [address] [id number] [place] [address]- 0127 Feb, [facility] [place] [facility] [address] [id number] [place] [address]- 0665 Feb, [facility] [place] [facility] [address] [id number] [place] [address]- 2435 Feb, [facility] [place] [facility] [address] [id number] [place] [address]- 7229 Feb, [facility] [place] [facility] [address] [id number] [place] [address]- 0729 Feb, [facility] [place] [facility] [address] [id number] [place] [address]- 9149 Feb, [facility] [place] [facility] [address] [id number] [place] [address]- 3948 Jan, [facility] [place] [facility] [address] [id number] [place] [address]- 3905 Jan, [facility] [place] [facility] [address] [id number] [place] [address]- 7638 Jan, [facility] [place] [facility] [address] [id number] [place] [address]- 5853 Jan, [facility] [place] [facility] [address] [id number] [place] [address]- 6878 Jan, [facility] [place] [facility] [address] [id number] [place] [address]- 8524 Dec, [facility] [place] [facility] [address] [id number] [place] [address]- 4279 Dec, [facility] [place] [facility] [address] [id number] [place] [address]- 8280 Dec, [facility] [place] [facility] [address] [id number] [place] [address]- 7106 Dec, [facility] [place] [facility] [address] [id number] [place] [address]- 8980 Nov, [facility] [place] [facility] [address] [id number] [place] [address]- 2755 Nov, [facility] [place] [facility] [address] [id number] [place] [address]- 0436 Nov, [facility] [place] [facility] [address] [id number] [place] 4444 Nov, [facility] [place] [facility] [address] [id number] [place] [address]- 4422 Nov, [facility] [place] [facility] [address] [id number] [place] [address]- 4486 Nov, [facility] [place] [facility] [address] [id number] [place] [address]- 6834 Nov, [facility] [place] [facility] [address] [id number] [place] [address]- 9343 Nov, [facility] [place] [facility] [address] [id number] [place] [address]- 6704 Nov, [facility] [place] [facility] [address] [id number] [place] [address]- 8623 Nov, [facility] [place] [facility] [address] [id number] [place] [address]- 5545 Oct, [facility] [place] [facility] [address] [id number] [place] [address]- 5674 Oct, [facility] [place] [facility] [address] [id number] [place] [address]- 1408 September, [facility] [place] [facility] [address] [id number] [place] [address]- 4020 September, [facility] [place] [facility] [address] [id number] [place] [address]- 3074 September, [facility] [place] [facility] [address] [id number] [place] [address]- 5119 September, [facility] [place] [facility] [address] [id number] [place] [address]- 7860 Aug, [facility] [place] [facility] [address] [id number] [place] [address]- 5862 Aug, [facility] [place] [facility] [address] [id number] [place] [address]- 9666 Aug, [facility] [place] [facility] [address] [id number] [place] [address]- 6811 Jul, [facility] [place] [facility] [address] [id number] [place] [address]- 0933 24 Jul, 2013 [facility] [place] [facility] [address] [id number] [place] [address]- 1807 14 Jul, 2013 [facility] [place] [facility] [address] [id number] [place] [address]- 7838 14 Jul, 2013 [facility] [place] [facility] [address] [id number] [place] [address]- 4065 20 May, 2013 [facility] [place] [facility] [address] [id number] [place] [address]- 9381 17 May, 2013 [facility] [place] [facility] [address] [id number] [place] [address]- 7542 17 May, 2013 [facility] [place] [facility] [address] [id number] [place] [address]- 8301 15 Mar, 2013 [facility] [place] [facility] [address] [id number] [place] [address]- 2043 15 Mar, 2013 [facility] [place] [facility] [address] [id number] [place] [address]- 6120 Mar, [facility] [place] [facility] [address] [id number] [place] [address]- 9638 Mar, [facility] [place] [facility] [address] [id number] [place] [address]- 5899 16 Feb, 2013 [facility] [place] [facility] [address] [id number] [place] [address]- 5801 16 Feb, 2013 [facility] [place] [facility] [address] [id number] [place] [address]- 7740 04 Feb, 2013 [facility] [place] [facility] [address] [id number] [place] 6432 16 Jan, 2013 [facility] [place] [facility] [address] [id number] [place] 1325 12 Jan, 2013 [facility] [place] [facility] [address] [id number] [place] [address]- 3403 Jan, [facility] [address] [id number] [place] [address]- 5746 Dec, [facility] [place] [facility] [address] [id number] [place] [address]- 1790 Dec, [facility] [place] [facility] [address] [id number] [place] [address]- 6340 Dec, [facility] [place] [facility] [address] [id number] [place] [address]- 5965 Dec, [facility] [address] [id number] [place] [address]- 1571 Nov, [facility] [address] [id number] [place] [address]- 5534 Oct, [facility] [place] [facility] [address] [id number] [place] [address]- 6481 Oct, [facility] [place] [facility] [address] [id number] [place] [address]- 9809 September, [facility] [place] [facility] [address] [id number] [place] [address]- 0315 September, [facility] [place] [facility] [address] [id number] [place] [address]- 8514 September, [facility] [place] [facility] [address] [id number] [place] [address]- 1172 Aug, [facility] [place] [facility] [address] [id number], [place] [address]- 9052 Aug, [facility] [place] [facility] [address] [id number] [place] [address]- 9233 Aug, [facility] [place] [facility] [address] [id number] [place] [address]- 8851 Aug, [facility] [place] [facility] [address] [id number] [place] [address]- 1147 Jul, [facility] [place] [facility] [address] [id number] [place] [address]- 1928 25 Jul, 2012 [facility] [address] [id number] [place] [address]- 4616 21 Jul, 2012 [facility] [place] [facility] [address] [id number] [place] [address] 2546 15 Jul, 2012 [facility] [address] [id number] [place] [address]- 2758 14 Jul, 2012 [facility] [address] [id number] [place] [address] 2543 13 Jul, 2012 [facility] [address] [id number] [place] [address]- 1170 13 Jul, 2012 [facility] [address] [id number] [place] [address]- 9501 06 Jun, 2012 [facility] [address] [id number] [place] [address]- 1035 06 Jun, 2012 [facility] [address] [id number] [place] [address]- 2131 05 Jun, 2012 [facility] [address] [id number] [place] [address]- 0707 Jun, [facility] [address] [id number] [place] [address]- 6120 May, [facility] [address] [id number] [place] [address] 2541 May, [facility] [place] [facility] [address] [id number] [place] [address] 2548 May, [facility] [place] [facility] [address] [id number] [place] [address]- 3769 29 May, 2012 [facility] [place] [facility] [address] [id number] [place] [address] 2546 May, [facility] [place] [facility] [address] [id number] [place] [address]- 0653 Apr, [facility] [place] [facility] [address] [id number] [place] [address]- 0513 Apr, [facility] [place] [facility] [address] [id number] [place] [address]- 8032 Mar, [facility] [place] [facility] [address] [id number] [place] [address]- 4757 Mar, [facility] [place] [facility] [address] [id number] [place] [address]- 2711 Mar, [facility] [place] [facility] [address] [id number] [place] [address]- 1841 Mar, [facility] [place] [facility] [address] [id number] [place] [address]- 0564 Mar, [facility] [place] [facility] [address] [id number] [place] [address]- 1669 Mar, [facility] [place] [facility] [address] [id number] [place] [address]- 8648 Mar, [facility] [place] [facility] [address] [id number] [place] [address]- 2555 Mar, [facility] [place] [facility] [address] [id number] [place] [address]- 4305 Mar, [facility] [place] [facility] [address] [id number] [place] [address]- 8904 Mar, [facility] [place] [facility] [address] [id number], [place] [address]- 3193 Feb, [facility] [place] [facility] [address] [id number] [place] [address] Feb, [facility] [place] [facility] [address] [id number] [place] [address] Feb, [facility] [place] [facility] [address] [id number] [place] [address] Feb, [facility] [place] [facility] [address] [id number] [place] [address] Feb, [facility] [place] [facility] [address] [id number] [place] [address] Feb, [facility] [place] [facility] [address] [id number] [place] [address] Feb, [facility] [place] [facility] [address] [id number] [place] [address] Jan, [facility] [place] [facility] [address] [id number] [place] [address] Jan, [facility] [place] [facility] [address] [id number] [place] [address] Dec, [facility] [place] [facility] [address] [id number] [place] [address] Dec, [facility] [place] [facility] [address] [id number] [place] [address] Dec, [facility] [place] [facility] [address] [id number] [place] [address] Dec, [facility] [place] [facility] [address] [id number] [place] [address] Dec, [facility] [place] [facility] [address] [id number] [place] [address] Dec, [facility] [place] [facility] [address] [id number] [place] [address] Nov, [facility] [place] [facility] [address] [id number] [place] [address] Nov, [facility] [place] [facility] [address] [id number] [place] [address] Nov, [facility] [place] [facility] [address] [id number] [place] [address] Nov, [facility] [place] [facility] [address] [id number] [place] [address] September, [facility] [place] [facility] [id number] [address] September, [facility] [address] [facility] [id number], [place] [address] September, [facility] [address] [facility] [id number], [place] [address] Jul, [facility] [id number], [place] [address] 29 Jun, 2011 [facility] [address] [facility] [id number], [place] [address] Jun, [facility] [id number] [place] [address] Jun, [facility] [id number], [place] [address] Apr, [facility] [id number], [place] [address] Mar, [facility] [id number], [place] [address] Mar, [facility] [id number] [address] [address] Feb, [facility] [id number] [address] [address] Feb, [facility] [id number], [place] [address] Feb, [facility] [address] [id number] [address] Jul, [facility] [id number] [address] [address] Feb, IMMUNIZATIONS No Known Immunizations SOCIAL HISTORY Never Assessed REASON FOR VISIT f/u PLAN OF CARE Activity Details Follow Up 2 Weeks Reason: F/U VITAL SIGNS MEDICATIONS Unknown Medications RESULTS No Results PROCEDURES Procedure Date Ordered Result Body Site Psychotherapy, patient and family, 45 minutes, established patient Apr 25, 2018 INSTRUCTIONS MEDICATIONS ADMINISTERED No Known Medications MEDICAL (GENERAL) HISTORY Type Description Date Medical History type II diabetes-dx'd 12/2010 Medical History dysfunctional uterine bleeding--endometrial bx 12/2010 Medical History asthma Medical History hypertension Medical History obesity Medical History anxiety Medical History autoimmune disease Surgical History x1 Hospitalization History child Hospitalization History Asthma
--- OUTSIDE RECORDS SUMMARY | 2018-05-09 22:23 | XMS REPORT ---
Author Author MACY TAMAYO [facility] Address [address] [place] [address] Care Team Providers Care Community Coordinator Name Role Phone MACY TAMAYO Unavailable PROBLEMS Type Condition ICD9-CM Code TLU47-DA Code Onset Dates Condition Status SNOMED Code Problem Dermatomyositis M33.90 Active 003242660 Problem Lumbago with sciatica, right side M54.41 Active 855132711 Problem Morbid (severe) obesity due to excess calories E66.01 Active 099599992 Problem Diabetes with other specified manifestations, type II or unspecified type, not stated as uncontrolled 250.80 Active 283867084 Problem Osteoarthritis of right knee, unspecified osteoarthritis type M17.9 Active 024736457 Problem Hypertension, unspecified type I10 Active 02523694 Problem Menopause Z78.0 Active 687540761 Problem Diabetes type 2, controlled E11.9 Active 36264158 Problem Facial droop R29.810 Active 91198674 Problem Gait disturbance R26.9 Active 28843264 Problem Other specified mental disorders due to known physiological condition F06.8 Active 30629673 Problem Frequent falls R29.6 Active 399182462 Problem Plantar warts B07.0 Active 30629332 Problem Arthritis M19.90 Active 1728916 Problem Anxiety F41.9 Active 98525468 Problem Other chronic pain G89.29 Active 13786340 Problem Controlled type 2 diabetes mellitus without complication, without long -term current use of insulin E11.9 Active 435769918 Problem Body mass index (BMI) of 45.0-49.9 in adult Z68.42 Active 623419208 Problem Allergic rhinitis due to pollen J30.1 Active 25354083 Problem Plantar wart of both feet B07.0 Active [id number] Problem Tachycardia with heart rate 121-140 beats per minute R00.0 Active 7300521 Problem Mood disorder F39 Active 99942360 Problem Lumbago with sciatica, left side M54.42 Active 510204296 Problem Enlarged thyroid gland E04.9 Active [id number] ALLERGIES No Information ENCOUNTERS Encounter Location Date Diagnosis [facility] [id number] [place] [address] 76568- 6077 May, [facility] [id number] [place] [address] 73066- 1739 May, [facility] [id number] [place] [address] 41494- 9873 May, [facility] [id number] [place] [address] 76524- 4919 May, [facility] [id number] [place] [address] 20969- 4212 May, [facility] [id number] [place] [address] 34297- 9980 Apr, [facility] [id number] [place] [address] 08525- 6637 Apr, [facility] [id number] [place] [address] 72589- 5795 Mar, Mood disorder F39 [facility] [id number] [place] [address] 50596- 4106 Mar, [facility] [id number] [place] [address] 33257- 7769 Mar, [facility] [id number] [place] [address] 31565- 5747 Mar, BMI 45.0-49.9, adult Z68.42 [facility] [id number] [place] [address] 25152- 1726 Mar, [facility] [id number] [place] [address] 19193- 5989 Mar, BMI 45.0-49.9, adult Z68.42 ; Lupus erythematosus L93.[address] [facility] [id number] [place] [address] 38211- 4649 Mar, Pain in right knee M25.561 and Other chronic pain G89.29 [facility] [id number] [place] [address] 41305 -5743 Mar, Vaginal itching N89.8 ; Urinary tract infection, site not specified N39.0 ; Hematuria, unspecified R31.9 and V[address] B37.3 [facility] [id number] [place] [address] 39478- 0815 Mar, Mood disorder F39 [facility] [id number] [place] [address] 35723- 0690 Feb, BMI 40.0-44.9, adult Z68.41 ; Diabetes type 2, controlled E11.9 ; Osteoarthritis of right knee, unspecified osteoarthritis type M17.9 ; Dermatomyositis M33.90 ; Hypertension, unspecified type I10 and Fatigue, unspecified type R53.83 [facility] [id number] [place] [address] 89926- 4380 Feb, [facility] [id number] [place] [address] 92571- 4452 Feb, BMI 45.0-49.9, adult Z68.42 [facility] [id number] [place] [address] 19242- 5543 Feb, Mood disorder F39 [facility] [id number] [place] [address] 96542- 4099 Feb, [facility] [id number] [place] [address] 15145- 8043 Feb, Mood disorder F39 [facility] [id number] [place] [address] 83228- 1813 Feb, Other chronic pain G89.29 ; Anxiety F41.9 and Diabetes with other specified manifestations, type II or unspecified type, not stated as uncontrolled 250.80 [facility] [id number] [place] [address] 97116- 3461 Feb, BMI 40.0-44.9, adult Z68.41 [facility] [id number] [place] [address] 44071- 9744 Feb, Pain in right knee M25.561 and Other chronic pain G89.29 [facility] [id number] [place] [address] 91210- 8688 Feb, [place] [address] 19839- 2765 Feb, BMI 45.0-49.9, adult Z68.42 ; Gait disturbance R26.9 ; Other specified mental disorders due to known physiological condition F06.8 ; Weakness R53.1 ; Frequent falls R29.6 and Self-care deficit for bathing R46.0 [place] [facility] [id number] [place] [address] 17355- 6486 Feb, Pain in right knee M25.561 and Other chronic pain G89.29 [facility] [id number] [place] [address] 22496- 2198 Jan, Mood disorder F39 [facility] [id number] [place] [address] 83979- 4354 Jan, BMI 45.0-49.9, adult Z68.42 and 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 [address] [place] [address] 33553- 5320 Jan, [facility] [id number] [place] [address] 68507- 7894 21 Jan, 2018 [facility] [id number] [place] [address] 23185- 6190 19 Jan, 2018 Allergic reaction to drug, initial encounter T78.40XA [facility] [id number] [place] [address] 91621- 5534 17 Jan, 2018 BMI 45.0-49.9, adult Z68.42 and Facial droop R29.810 [facility] [id number] [place] [address] 06325- 6139 14 Jan, 2018 Mood disorder F39 [place] [address] 50031- 1894 11 Jan, 2018 Dermatomyositis M33.90 and BMI 40.0-44.9, adult Z68.41 [facility] [id number] [place] [address] 61518- 6187 10 Jan, 2018 [facility] [id number] [place] [address] 68842- 4165 05 Jan, 2018 [facility] [id number] [place] [address] 92741- 0521 04 Jan, 2018 Irritation of left eye H57.8 and BMI 40.0-44.9, adult Z68.41 [facility] [id number] [place] [address] 99566- 2907 Dec, Diabetes type 2, controlled E11.9 [facility] [id number] [place] [address] 49357- 7378 30 Dec, 2017 Acute right ankle pain M25.571 [facility] [id number] [place] [address] 29261- 4781 30 Dec, 2017 Other chronic pain G89.29 ; Diabetes type 2, controlled E11.9 ; Gait disturbance R26.9 ; Weakness R53.1 and Muscle spasm M62.838 [facility] [address] 14136- 6875 Dec, Acute non-recurrent maxillary sinusitis J01.00 [facility] [id number] [place] [address] 00032- 4149 Dec, [facility] [address] 12295- 7656 Dec, [facility] [address] 34083- 5749 Dec, Acute non-recurrent maxillary sinusitis J01.00 [facility] [id number] [place] [address] 01812- 1985 Dec, Lumbago with sciatica, right side M54.41 and Lupus erythematosus L93.0 [facility] [address] 24180- 5801 Dec, Mood disorder F39 [facility] [id number] [place] [address] 79430- 9810 Dec, Mood disorder F39 [facility] [id number] [place] [address] 38026- 2573 Dec, [facility] [id number] [place] [address] 96794- 2191 Dec, Acute right ankle pain M25.571 [facility] [id number] [place] [address] 33649- 6752 Nov, Lumbar radiculopathy M54.16 [facility] [address] 71065- 3100 Nov, [facility] [id number] [place] [address] 52409- 1811 Nov, Mood disorder F39 [facility] [address] [place] [address]- 5048 Nov, Lumbago with sciatica, right side M54.41 and Other chronic pain G89.29 [facility] [id number] [place] [address] 71638- 1202 Nov, Acute right ankle pain M25.571 [facility] [id number] [place] [address] 48480- 0696 Nov, [facility] [id number] [place] [address] 31134- 9957 Oct, [facility] [id number] [place] [address] 42313- 5687 Oct, Plantar wart of both feet B07.0 [facility] [id number] [place] [address] 74490- 6111 Oct, [facility] [id number] [place] [address] 94542- 7644 Oct, Acute right ankle pain M25.571 and Plantar wart of both feet B07.0 [facility] [id number] [place] [address] 15222- 8615 September, Other chronic pain G89.29 [facility] [id number] [place] [address] 22771- 1328 September, Other chronic pain G89.29 [facility] [id number] [place] [address] 55513- 2173 September, Other chronic pain G89.29 [facility] [id number] [place] [address] 41073- 3185 Aug, Mood disorder F39 [facility] [id number] [place] [address] 03916- 0554 Aug, Other chronic pain G89.29 ; Controlled type 2 diabetes mellitus without complication, without long-term current use of insulin E11.9 ; Low back pain M54.5 and Tinea corporis B35.4 [facility] [id number] [place] [address] 58669- 6743 Aug, Mood disorder F39 and Anxiety F41.9 [place] [address] 22962- 0968 Aug, Mood disorder F39 and Anxiety F41.9 [place] [address] 68885- 1790 Jul, [facility] [address] 30922 -0690 Jul, Scabies B86 and BMI 45.0-49.9, adult Z68.[address] 81169- 7516 Jul, [place] [address] 99127- 4713 Jul, Mood disorder F39 and Anxiety F41.9 [facility] [id number] [place] [address] 16233- 5102 Jul, [facility] [place] [id number] [place] [address] 02307 -1460 27 Jun, 2017 Bronchitis J40 ; Dark urine R82.99 and BMI 45.0-49.9, adult Z68.42 [facility] [place] [id number] [place] [address] 65130- 5869 14 Jun, 2017 Acute pain of right shoulder M25.511 and Acute pain of right knee M25.561 [facility] [id number] [place] [address] 58390- 5243 May, BMI 40.0-44.9, adult Z68.41 ; Controlled type 2 diabetes mellitus without complication, without long-term current use of insulin E11.9 ; Muscle cramping R25.2 ; Hot flashes R23.2 ; Mood disorder F39 ; Anxiety F41.9 and Morbid (severe) obesity due to excess calories E66.01 [place] [address] 61390- 0896 May, BMI 40.0-44.9, adult Z68.41 ; Controlled type 2 diabetes mellitus without complication, without long-term current use of insulin E11.9 ; Muscle cramping R25.2 and Hot flashes R23.[address] 90412- 6949 May, Tachycardia with heart rate 121-140 beats per minute R00.0 ; Morbid (severe) obesity due to excess calories E66.01 ; Diabetes type 2, controlled E11.9 and Enlarged thyroid gland E04.[address] 64615- 2398 25 May, 2017 Encounter for well woman [...] Dysuria R30.0 and Screening breast examination Z12.[address] 71728- 5672 Apr, Mood disorder F39 ; Other chronic pain G89.29 and Anxiety F41.[address] 02474- 4079 Apr, Lumbago with sciatica, left side M54.42 and Other chronic pain G89.[address] 92138- 5756 Apr, Lupus erythematosus L93.[address] 06042- 0265 Mar, Plantar wart of both feet B07.[address] [place] [address]- 9764 Mar, Lupus erythematosus L93.0 and Sinus drainage J34.89 [facility] [address] 46374- 4911 Mar, Mood disorder F39 ; Other chronic pain G89.[address] [facility] [address] 20671- 8627 Mar, Mood disorder F39 ; Arthritis M19.90 and Plantar warts B07.0 [facility] [id number] [place] [address] 18873- 1933 Feb, Lupus erythematosus L93.0 [facility] [address] 09794- 3442 Feb, Other chronic pain G89.29 [facility] [address] 74929- 3955 Feb, Mood disorder F39 [address].9 [facility] [id number] [place] [address] 46107- 1492 Jan, [facility] [address] 19336- 4478 Jan, Mood disorder F39 [facility] [id number] [place] [address] 11468- 0049 Dec, Nail, ingrown L60.0 [facility] [id number] [place] [address] 08148- 0190 Dec, Nail, ingrown L60.0 [facility] [id number] [place] [address] 54987- 3609 Nov, Mood disorder F39 [address] An[address]41.9 [facility] [id number] [place] [address] 24382- 5768 Nov, Sinus drainage J34.89 ; Hot flashes R23.2 ; Anxiety F41.9 and Diabetes type [address], [address] [facility] [address] [place] [address] 86685- 6673 Nov, Nail, ingrown L60.0 [facility] [id number] [place] [address] 63324- 8985 Oct, Anxiety F41.9 and Mood disorder F39 [facility] [id number] [place] [address] 21897- 5186 Oct, Nail, ingrown L60.[address] [facility] [id number] [place] [address] 33624- 0735 Oct, Lupus erythematosus L93.0 [facility] [id number] [place] [address] 98405- 4438 September, [facility] [id number] [place] [address] 89183- 8038 September, [facility] [id number] [place] [address] 30748- 2460 September, Lupus erythematosus L93.0 [facility] [id number] [place] [address] 40635- 9122 Aug, [facility] [id number] [place] [address] 61934- 4417 Aug, Mood disorder F39 [address] An[address]41.9 [facility] [id number] [place] [address] 01092- 7600 Aug, Lupus erythematosus L93.0 ; Diabetes type 2, controlled E11.9 and Localized edema R60.0 [facility] [id number] [place] [address] 75572- 1106 Aug, [facility] [id number] [place] [address] 20316- 8084 Jul, Anxiety F41.9 [address] Mood disorder F39 [facility] [id number] [place] [address] 36313- 1626 Jul, Diabetes type 2, controlled E11.9 [facility] [id number] [place] [address] 85781- 2249 Jun, Anxiety F41.9 [place] [id number] [place] [address] 31933- 9781 May, [place] [id number] [place] [address] 88887- 4828 May, [place] [address] 37550- 8674 May, Nausea R11.0 ; Other chronic pain G89.29 and Pain in right knee M25.561 [place] [address] 95299- 1469 May, [place] [id number] [place] [address] 76268- 6169 Apr, Tear of medial meniscus of right knee, current, unspecified tear type, subsequent encounter S83.241D and Tear of lateral meniscus of right knee, current, unspecified tear type, subsequent encounter S83.281D [facility] [id number] [place] [address] 16040- 2466 Apr, Anxiety F41.9 and Mood disorder F39 [place] [id number] [place] [address] 35968- 1243 Apr, Anxiety F41.9 [place] [id number] [place] [address] 08764- 8349 Apr, [place] [address] [place] [address] 51292- 6755 Mar, [facility] [place] [id number] [place] [address] 57760- 8431 Mar, Lupus erythematosus L93.0 and Diabetes type 2, controlled E11.9 [place] [id number] [place] [address] 33580- 8971 Mar, Mood disorder F39 [facility] [address] [address] 2543 Mar, Tear of lateral meniscus of right knee, current, unspecified tear type, initial encounter S83.281A and Osteoarthritis of right knee, unspecified osteoarthritis type M17.9 [facility] [address] [place] [address] 71507 2546 Mar, [facility] [id number] [place] [address] 14244 2546 Feb, Mood disorder F39 [facility] [id number] [place] [address] 97023 2546 Feb, Rash R21 [facility] [id number] [place] [address] 35676 2546 Feb, [facility] [id number] [place] [address] 95283- 5536 Jan, Other chronic pain G89.29 and Muscle spasm M62.838 [facility] [id number] [place] [address] 66094 2546 Jan, Mood disorder F39 [facility] [id number] [place] [address] 19230 2546 Jan, Pain in right knee M25.561 ; Other chronic pain G89.29 and Muscle spasm M62.838 [facility] [address] [place] [address] 07827 2546 Dec, [facility] [id number] [place] [address] 91972 [address], [facility] [id number] [place] [address] 77444 2546 Nov, [facility] [id number] [place] [address] 29593 2546 Nov, Mood disorder F39 [facility] [address] [place] [address] 34009- 1430 Nov, Diabetes type 2, controlled E11.9 ; Bronchitis J40 ; Edema, unspecified type R60.9 ; Weight gain R63.5 and Right knee pain, unspecified chronicity M25.561 [facility] [id number] [place] [address] 92516- 8161 Oct, Mood disorder F39 [facility] [address] 42028- 6105 Oct, Lupus erythematosus L93.0 and Bilateral edema of lower extremity R60.0 [place] [address] 65942- 5576 Oct, Mood disorder F39 and Anxiety F41.9 [place] [address] 08432- 6410 September, Mood disorder F39 ; Anxiety F41.9 and Anger reaction R45.4 [place] [address] 46351- 2901 September, Diabetes type 2, controlled E11.9 ; Edema, unspecified type R60.9 and Fatigue, unspecified type R53.83 [place] [id number] [place] [address] 18718- 9860 Aug, Mood disorder F39 and Generalized anxiety disorder F41.1 [place] [id number] [place] [address] 11786- 1974 Aug, Diabetes type 2, controlled E11.9 ; Sinusitis J32.9 and Mood disorder F39 [place] [id number] [place] [address] 93058- 5625 Aug, Lupus erythematosus L93.0 [place] [address] 04912- 5599 Aug, [place] [address] [address]185- 2823 Aug, [place] [address] 89620- 8184 Jul, Diabetes type 2, controlled E11.9 [facility] [id number] [place] [address] 58519- 2846 Jul, Mood disorder F39 and Depression [address]32[address]9 [facility] [id number] [place] [address] [id number] 2546 Jul, Lupus erythematosus L93.0 and Diabetes type 2, controlled E11.9 [facility] [id number] [place] [address] 33184- 6197 Jul, Mood disorder F39 and Anxiety [address]9 [facility] [id number] [place] [address] 70732- 6786 Jul, [facility] [id number] [place] [address] 04131- 8983 Jul, [facility] [id number] [place] [address] 04716- 8138 Jun, Mood disorder F39 and Anxiety [address]41.9 [facility] [id number] [place] [address] 46779- 6558 Jun, Mood disorder F39 [facility] [id number] [place] [address] 78522- 6915 18 Jun, 2015 [facility] [id number] [place] [address] 95279- 8870 Jun, [facility] [id number] [place] [address] 91977- 2541 08 Jun, [address] [facility] [id number] [place] [address] 70812- 7949 Jun, [facility] [id number] [address]87 May, [facility] [id number] [address] May, [facility] [id number] [address] 8768 May, [facility] [id number] [place] [address] 97571- 2370 May, [facility] [id number] [place] [address] 98111- 0462 May, Anxiety F41.9 ; Dermatomyositis M33.90 and Diabetes type 2, controlled E11.9 [facility] [id number] [place] [address] 92708 -3335 May, Sinusitis J32.[address] [facility] [id number] [place] [address] 39404- 3721 May, Mood disorder F39 [facility] [id number] [place] [address] 40609- 4666 May, Adjustment disorder with mixed anxiety and depressed mood F43.23 [facility] [id number] [place] [address] 57717- 0137 Apr, [facility] [id number] [place] [address] 36719- 6155 Apr, [facility] [id number] [place] [address] 46736- 1497 Apr, Generalized anxiety disorder F41.1 [address] Mood [address] [facility] [id number] [place] [address] 97666- 9388 Mar, [facility] [id number] [place] [place] [address] 96805- 1381 Mar, [facility] [id number] [place] [address] 41570- 7722 Mar, [facility] [id number] [place] [address] 40583- 7926 Mar, Mood disorder F39 [facility] [id number] [place] [address] 21121- 5244 Feb, [place] [id number] [place] [address] 69394- 9623 Feb, Diabetes E11.9 and Bronchitis J40 [place] [id number] [place] [address] 38641- 1105 Feb, [place] [id number] [place] [address] 46906- 8545 Feb, [place] [id number] [place] [address] 86972- 1317 Feb, Major depression, recurrent, full remission F33.42 and KELLY ( generalized anxiety disorder) F41.1 [place] [id number] [place] [address] 65824- 5480 Feb, [place] [id number] [place] [address] 82774- 7290 Feb, Single major depressive episode, in partial or unspecified remission F32.5 [place] [id number] [place] [address] 41095- 9184 Jan, Fatigue 780.79 [place] [id number] [place] [address] 90598- 0737 Jan, [place] [id number] [place] [address] 89694- 6529 Jan, Diabetes with other specified manifestations, type II or unspecified type, not stated as uncontrolled 250.80 [place] [id number] [place] [address] 76203- 7922 Jan, [place] [id number] [place] [address] 43937- 4486 Dec, Hot flashes 627.2 ; Memory loss 780.93 and Joint pain 719.40 [place] [id number] [place] [address] 18796- 7530 Dec, Major depression, recurrent 296.30 ; Generalized anxiety disorder 300.02 ; Adjustment disorder with depressed mood 309.0 and No condition on [place] II V71.09 [place] [address] [address] 8207 Dec, [place] [id number] [place] [address] 60944- 8956 Nov, Cognitive and neurobehavioral dysfunction 294.9 ; Major depressive disorder, recurrent episode, moderate degree 296.32 and Anxiety state , unspecified 300.00 [place] [id number] [place] [address] 47124- 1259 Nov, [place] [id number] [place] [address] 46395- 6052 Nov, Bronchitis 490 and Diabetes with other specified manifestations, type II or unspecified type, not stated as uncontrolled 250.80 [place] [id number] [place] [address] 50474- 3024 Nov, Major depressive disorder, recurrent episode, moderate 296.32 and Anxiety disorder, unspecified 300.00 [place] [address], [place] [address] 9132 Nov, Anxiety, generalized 300.02 ; Intermittent explosive disorder 312.34 ; No condition on [place] II V71.09 and No condition on axis III V71.09 [place] [address], [place] [address]- 1258 Oct, Diabetes with other specified manifestations, type II or unspecified type, not stated as uncontrolled 250.80 ; Urinary tract infection, site not specified 599.0 and Bronchitis 490 [address] [address], [place] [address]- 9370 Oct, Intermittent explosive disorder 312.34 ; Bipolar 1 disorder , depressed, moderate 296.52 ; Major depression, chronic 296.20 ; No condition on [place] II V71.09 and No condition on axis III V71.09 [place] [address], [place] [address]- 1777 Oct, Major depressive disorder, recurrent episode, moderate 296.32 ; Anxiety state 300.00 ; Cognitive decline 294.9 and No condition on [place] II V71.09 [facility] [id number] [place] [address] 36682- 9606 Oct, [facility] [id number] [place] [address] 54855- 7508 Oct, Major depressive disorder, recurrent episode, moderate 296.32 ; Anxiety disorder, unspecified 300.00 and Persistent disorder of initiating or maintaining sleep 307.42 [facility] [id number] [place] [address] 89319- 6750 September, Diabetes with other specified manifestations, type II or unspecified type, not stated as uncontrolled 250.80 ; Memory loss 780.93 and Cognitive [address]99.59 [facility] [id number] [place] [address] 78903- 0870 September, No condition on [place] II V71.09 ; Major depression, recurrent 296.30 and Persistent mood [affective] disorder, unspecified 296.90 [facility] [id number] [place] [address] 85627- 3571 Aug, [facility] [id number] [place] [address] 79535- 9638 Aug, [facility] [id number] [place] [address] 98800- 2318 Aug, [facility] [id number] [place] [address] 03678- 8287 Jul, [facility] [id number] [place] [address] 63307- 4018 Jul, [facility] [id number] [place] [address] 92125- 2430 Jul, [facility] [id number] [place] [address] [id number]- 2315 Jul, [facility] [id number] [place] [address] 199001- 7877 Jul, [facility] [place] [facility] [address] [id number] [place] [address]- 6178 Jun, 2014 [facility] [place] [facility] [address] [id number] [place] [address]- 2457 Jun, 2014 [facility] [place] [facility] [address] [facility] [id number] [place] [address]- 1106 Jun, 2014 [facility] [place] [facility] [address] [id number] [place] [address]- 5237 Jun, 2014 [facility] [place] [facility] [address] [id number] [place] [address]- 7983 Jun, 2014 [facility] [place] [facility] [address] [facility] [id number] [place] [address]- 8171 Jun, 2014 [facility] [place] [facility] [address] [facility] [id number] [place] [address]- 3620 Jun, 2014 [facility] [place] [facility] [address] [facility] [id number] [place] [address]- 1629 Jun, 2014 [facility] [place] [facility] [address] [facility] [id number] [place] [address]- 4936 Jun, 2014 [facility] [place] [facility] [address] [facility] [id number] [place] [address]- 6592 Jun, 2014 [facility] [place] [facility] [address] [facility] [id number] [place] [address]- 7339 Jun, 2014 [facility] [place] [facility] [address] [facility] [id number] [place] [address]- 5612 Jun, 2014 [facility] [place] [facility] [address] [facility] [id number] [place] [address]- 9070 Jun, 2014 [facility] [place] [facility] [address] [facility] [id number] [place] [address]- 9778 May, [facility] [place] [facility] [address] [facility] [id number] [place] [address]- 8172 May, [facility] [place] [facility] [address] [id number] [place] [address]- 1932 Apr, [facility] [place] [facility] [address] [id number] [place] [address]- 4226 Apr, [facility] [place] [facility] [address] [id number] [place] [address]- 5206 Apr, [facility] [place] [facility] [address] [id number] [place] [address]- 9426 Apr, [facility] [place] [facility] [address] [id number] [place] [address]- 8035 Apr, [facility] [place] [facility] [address] [id number] [place] [address]- 8567 Apr, [facility] [place] [facility] [address] [id number] [place] [address]- 5446 Apr, [facility] [place] [facility] [address] [id number] [place] [address]- 9224 Apr, [facility] [place] [facility] [address] [id number] [place] [address]- 1371 Apr, [facility] [place] [facility] [address] [id number] [place] [address]- 1438 Apr, [facility] [place] [facility] [address] [id number] [place] [address]- 8585 Apr, [facility] [place] [facility] [address] [id number] [place] [address]- 8165 Apr, [facility] [place] [facility] [address] [id number] [place] [address]- 2646 Apr, [facility] [place] [facility] [address] [id number] [place] [address]- 5256 Apr, [facility] [place] [facility] [address] [id number] [place] [address]- 4016 Apr, [facility] [place] [facility] [address] [id number] [place] [address]- 2612 Apr, [facility] [place] [facility] [address] [id number] [place] [address]- 6189 Apr, [facility] [place] [facility] [address] [id number] [place] [address]- 7493 Apr, [facility] [place] [facility] [address] [id number] [place] [address]- 1925 Apr, [facility] [place] [facility] [address] [id number] [place] [address]- 7459 Apr, [facility] [place] [facility] [address] [id number] [place] [address]- 2422 Mar, [facility] [place] [facility] [address] [id number] [place] [address]- 8821 Mar, [facility] [place] [facility] [address] [id number] [place] [address]- 4859 Mar, [facility] [place] [facility] [address] [id number] [place] [address]- 0697 Mar, [facility] [place] [facility] [address] [id number] [place] [address]- 1240 Mar, [facility] [place] [facility] [address] [id number] [place] [address]- 9154 Mar, [facility] [place] [facility] [address] [id number], [place] [address]- 5832 Mar, [facility] [place] [facility] [address] [id number], [place] [address]- 0286 Mar, [facility] [place] [facility] [address] [id number] [place] [address]- 5608 Mar, [facility] [place] [facility] [address] [id number], [place] [address]- 8376 Mar, [facility] [place] [facility] [address] [id number] [place] [address]- 4878 Mar, [facility] [place] [facility] [address] [id number] [place] [address]- 4590 05 Mar, 2014 [facility] [place] [facility] [address] [id number] [place] [address]- 4531 Mar, [facility] [place] [facility] [address] [id number] [place] [address]- 2151 Feb, [facility] [place] [facility] [address] [id number] [place] [address]- 9939 Feb, [facility] [place] [facility] [address] [id number] [place] [address]- 9437 30 Feb, 2014 [facility] [place] [facility] [address] [id number] [place] [address]- 5289 Feb, [facility] [place] [facility] [address] [id number] [place] [address]- 9073 Feb, [facility] [place] [facility] [address] [id number] [place] [address]- 4388 Feb, [facility] [place] [facility] [address] [id number] [place] [address]- 2865 Feb, [facility] [place] [facility] [address] [id number] [place] [address]- 9721 Feb, [facility] [place] [facility] [address] [id number] [place] [address]- 3806 Feb, [facility] [place] [facility] [address] [id number] [place] [address]- 9749 Feb, [facility] [place] [facility] [address] [id number] [place] [address]- 2969 13 Feb, 2014 [facility] [place] [facility] [address] [id number] [place] [address]- 5928 10 Feb, 2014 [facility] [place] [facility] [address] [id number] [place] [address]- 8747 10 Feb, 2014 [facility] [place] [facility] [address] [id number] [place] [address]- 7403 07 Feb, 2014 [facility] [place] [facility] [address] [id number] [place] [address]- 2203 Feb, [facility] [place] [facility] [address] [id number] [place] [address]- 6781 Jan, [facility] [place] [facility] [address] [id number] [place] [address]- 5379 08 Jan, 2014 [facility] [place] [facility] [address] [id number] [place] [address]- 6555 Jan, [facility] [place] [facility] [address] [id number] [place] [address]- 6611 Jan, [facility] [place] [facility] [address] [id number] [place] [address]- 5908 Jan, [facility] [place] [facility] [address] [id number] [place] [address]- 2899 Dec, [facility] [place] [facility] [address] [id number] [place] [address]- 1928 Dec, [facility] [place] [facility] [address] [id number] [place] [address]- 7521 Dec, [facility] [place] [facility] [address] [id number] [place] [address]- 3527 Dec, [facility] [place] [facility] [address] [id number] [place] [address]- 3146 Nov, [facility] [place] [facility] [address] [id number] [place] [address]- 8010 Nov, [facility] [place] [facility] [address] [id number] [place] [address]- 6544 Nov, [facility] [place] [facility] [address] [id number] [place] [address]- 1247 Nov, [facility] [place] [facility] [address] [id number] [place] [address]- 1664 Nov, [facility] [place] [facility] [address] [id number] [place] [address]- 4526 Nov, [facility] [place] [facility] [address] [id number] [place] [address]- 1788 Nov, [facility] [place] [facility] [address] [id number] [place] [address]- 8547 Nov, [facility] [place] [facility] [address] [id number] [place] [address]- 9743 Nov, [facility] [place] [facility] [address] [id number] [place] [address]- 3466 Nov, [facility] [place] [facility] [address] [id number] [place] [address]- 3744 Oct, [facility] [place] [facility] [address] [id number] [place] [address]- 1899 Oct, [facility] [place] [facility] [address] [id number] [place] [address]- 4925 September, [facility] [place] [facility] [address] [id number] [place] [address]- 3911 September, [facility] [place] [facility] [address] [id number] [place] [address]- 8467 September, [facility] [place] [facility] [address] [id number] [place] [address]- 9612 September, [facility] [place] [facility] [address] [id number] [place] [address]- 1966 Aug, [facility] [place] [facility] [address] [id number] [place] [address]- 3007 Aug, [facility] [place] [facility] [address] [id number] [place] [address]- 8443 Aug, [facility] [place] [facility] [address] [id number] [place] [address]- 4817 Jul, [facility] [place] [facility] [address] [id number] [place] [address]- 4462 Jul, [facility] [place] [facility] [address] [id number] [place] [address]- 7934 14 Jul, 2013 [facility] [address] [id number] [place] [address]- 0033 14 Jul, 2013 [facility] [address] [id number] [place] [address]- 5411 20 May, 2013 [facility] [address] [id number] [place] [address]- 4927 17 May, 2013 [facility] [address] [id number] [place] [address]- 4734 17 May, 2013 [facility] [address] [id number] [place] [address]- 1479 15 Mar, 2013 [facility] [address] [id number] [place] [address]- 5724 15 Mar, 2013 [facility] [address] [id number] [place] [address]- 0600 Mar, [facility] [address] [id number] [place] [address]- 8581 Mar, [facility] [address] [id number] [place] [address]- 4622 16 Feb, 2013 [facility] [address] [id number] [place] [address]- 7988 16 Feb, 2013 [facility] [place] [facility] [address] [id number] [place] [address]- 8289 04 Feb, 2013 [facility] [address] [id number] [place] [address]- 6926 16 Jan, 2013 [facility] [place] [facility] [address] [id number] [place] [address]- 5679 12 Jan, 2013 [facility] [place] [facility] [address] [id number] [place] [address]- 4587 09 Jan, 2013 [facility] [place] [facility] [address] [id number] [place] [address]- 9800 Dec, [facility] [address] [id number] [place] [address]- 7035 Dec, [facility] [place] [facility] [address] [id number] [place] [address]- 5326 Dec, [facility] [place] [facility] [address] [id number] [place] [address]- 1962 Dec, [facility] [place] [facility] [address] [id number] [place] [address]- 8757 Nov, [facility] [address] [id number] [place] [address]- 1510 Oct, [facility] [place] [facility] [address] [id number] [place] [address]- 5138 Oct, [facility] [place] [facility] [address] [id number] [place] [address]- 5910 September, [facility] [place] [facility] [address] [id number] [place] [address]- 8125 September, [facility] [place] [facility] [address] [id number] [place] [address]- 0141 September, [facility] [place] [facility] [address] [id number] [place] [address]- 8373 Aug, [facility] [place] [facility] [address] [id number] [place] [address]- 5239 Aug, [facility] [place] [facility] [address] [id number], [place] [address]- 6713 Aug, [facility] [place] [facility] [address] [id number] [place] [address]- 6315 Aug, [facility] [place] [facility] [address] [id number] [place] [address]- 7716 Jul, [facility] [place] [facility] [address] [id number] [place] [address]- 8506 Jul, [facility] [place] [facility] [address] [id number] [place] [address]- 4724 21 Jul, 2012 [facility] [address] [id number] [place] [address]- 6684 15 Jul, 2012 [facility] [place] [facility] [address] [id number] [place] [address]- 9746 14 Jul, 2012 [facility] [address] [id number] [place] [address]- 0276 13 Jul, 2012 [facility] [place] [facility] [address] [id number] [place] [address]- 0469 13 Jul, 2012 [facility] [address] [id number] [place] [address]- 9258 06 Jun, 2012 [facility] [place] [facility] [address] [id number] [place] [address]- 8274 06 Jun, 2012 [facility] [address] [id number] [place] [address]- 2617 05 Jun, 2012 [facility] [place] [facility] [address] [id number] [place] [address]- 2288 Jun, [facility] [address] [id number] [place] [address]- 2425 May, [facility] [address] [id number] [place] [address]- 6320 May, [facility] [address] [id number] [place] [address]- 3839 30 May, 2012 [facility] [place] [facility] [address] [id number] [place] [address]- 3155 29 May, 2012 [facility] [place] [facility] [address] [id number] [place] [address]- 1468 May, [facility] [place] [facility] [address] [id number] [place] [address]- 1261 Apr, [facility] [place] [facility] [address] [id number] [place] [address]- 0666 Apr, [facility] [place] [facility] [address] [id number] [place] [address]- 8129 Mar, [facility] [place] [facility] [address] [id number] [place] [address]- 4083 Mar, [facility] [place] [facility] [address] [id number] [place] [address]- 2887 Mar, [facility] [place] [facility] [address] [id number] [place] [address]- 2565 Mar, [facility] [place] [facility] [address] [id number] [place] [address]- 4678 Mar, [facility] [place] [facility] [address] [id number] [place] [address]- 1339 Mar, [facility] [place] [facility] [address] [id number] [place] [address]- 4791 Mar, [facility] [place] [facility] [address] [id number] [place] [address]- 5376 Mar, [facility] [place] [facility] [address] [id number] [place] [address] Mar, [facility] [place] [facility] [address] [id number] [place] [address] Mar, [facility] [place] [facility] [address] [id number] [place] [address] Feb, [facility] [place] [facility] [address] [id number] [place] [address] Feb, [facility] [place] [facility] [address] [id number] [place] [address] Feb, [facility] [place] [facility] [address] [id number] [place] [address] Feb, [facility] [place] [facility] [address] [id number] [place] [address] Feb, [facility] [place] [facility] [address] [id number] [place] [address] Feb, [facility] [place] [facility] [address] [id number] [place] [address] Feb, [facility] [place] [facility] [address] [id number] [place] [address] Jan, [facility] [place] [facility] [address] [id number] [place] [address] Jan, [facility] [place] [facility] [address] [id number] [place] [address] Dec, [facility] [place] [facility] [address] [id number] [place] [address] Dec, [facility] [place] [facility] [address] [id number] [place] [address] Dec, [facility] [place] [facility] [address] [id number] [place] [address] Dec, [facility] [place] [facility] [address] [id number] [place] [address] Dec, [facility] [place] [facility] [address] [id number] [place] [address] Dec, [facility] [place] [facility] [address] [id number] [place] [address] Nov, [facility] [place] [facility] [address] [id number] [place] [address] Nov, [facility] [place] [facility] [address] [id number] [place] [address] Nov, [facility] [place] [facility] [address] [id number] [place] [address] Nov, [facility] [place] [facility] [address] [id number] [place] [address] September, [facility] [place] [facility] [address] [id number] [place] [address] September, [facility] [place] [facility] [id number] [place] [address] 14 Sep, 2011 [facility] [id number] [address] Jul, [facility] [id number] [place] [address] 29 Jun, [address] [facility] [id number] [address] 20 Jun, [address] [facility] [id number] [address] 13 Jun, [address] [facility] [id number] [place] [address] Apr, [facility] [id number] [address] Mar, [facility] [id number] [place] [address] Mar, [facility] [id number] [address] Feb, [facility] [id number] [address] Feb, [facility] [id number] [address] Feb, [facility] [id number], [place] [address] Jul, [facility] [id number] [address] Feb, IMMUNIZATIONS No Known Immunizations SOCIAL HISTORY Never Assessed REASON FOR VISIT [place] Hydrocodone PLAN OF CARE VITAL SIGNS MEDICATIONS Unknown [...]
--- OUTSIDE RECORDS SUMMARY | 2018-05-09 22:23 | XMS REPORT ---
Author Author MACY TAMAYO [facility] Address [address] [place] [address] Care Team Providers Care Trim Carpenter Name Role Phone MACY TAMAYO Unavailable PROBLEMS Type Condition ICD9-CM Code USV85-PA Code Onset Dates Condition Status SNOMED Code Problem Dermatomyositis M33.90 Active 199105866 Problem Lumbago with sciatica, right side M54.41 Active 044658515 Problem Morbid (severe) obesity due to excess calories E66.01 Active 504412415 Problem Diabetes with other specified manifestations, type II or unspecified type, not stated as uncontrolled 250.80 Active 790129332 Problem Osteoarthritis of right knee, unspecified osteoarthritis type M17.9 Active 252558068 Problem Hypertension, unspecified type I10 Active 68350103 Problem Menopause Z78.0 Active 078560278 Problem Diabetes type 2, controlled E11.9 Active 46711148 Problem Facial droop R29.810 Active 05002752 Problem Gait disturbance R26.9 Active 69517810 Problem Other specified mental disorders due to known physiological condition F06.8 Active 40304254 Problem Frequent falls R29.6 Active 792101669 Problem Plantar warts B07.0 Active 02769756 Problem Arthritis M19.90 Active 6120345 Problem Anxiety F41.9 Active 43889738 Problem Other chronic pain G89.29 Active 68519407 Problem Controlled type 2 diabetes mellitus without complication, without long -term current use of insulin E11.9 Active 432183265 Problem Body mass index (BMI) of 45.0-49.9 in adult Z68.42 Active 946327650 Problem Allergic rhinitis due to pollen J30.1 Active 50828586 Problem Plantar wart of both feet B07.0 Active [id number] Problem Tachycardia with heart rate 121-140 beats per minute R00.0 Active 0005299 Problem Mood disorder F39 Active 43975185 Problem Lumbago with sciatica, left side M54.42 Active 643500918 Problem Enlarged thyroid gland E04.9 Active 1037885 ALLERGIES No Information ENCOUNTERS Encounter Location Date Diagnosis [facility] [id number] [place] [address] 17009- 3879 May, [facility] [id number] [place] [address] 72978- 6296 Apr, [facility] [id number] [place] [address] 54416- 5009 Apr, [facility] [id number] [place] [address] 74978- 7002 Mar, [facility] [id number] [place] [address] 47802- 3207 Mar, [facility] [id number] [place] [address] 88293- 2541 Mar, [facility] [id number] [place] [address] 63604- 9580 Mar, BMI 45.0-49.9, adult Z68.42 [facility] [id number] [place] [address] 76452- 7984 Mar, [facility] [id number] [place] [address] 38490- 6330 Mar, BMI 45.0-49.9, adult Z68.42 ; Lupus erythematosus L93.0 and Dermatomyositis M33.90 [facility] [id number] [place] [address] 43807- 0191 Mar, Pain in right knee M25.561 and Other chronic pain G89.29 [facility] [id number] [place] [address] 26041 -8105 Mar, Vaginal itching N89.8 ; Urinary tract infection, site not specified N39.0 ; Hematuria, unspecified R31.9 and Vaginal arabella B37.3 [facility] [id number] [place] [address] 23376- 7728 Mar, Mood disorder F39 [place] [address] [place] [address] 88481- 4861 Feb, BMI 40.0-44.9, adult Z68.41 ; Diabetes type 2, controlled E11.9 ; Osteoarthritis of right knee, unspecified osteoarthritis type M17.9 ; Dermatomyositis M33.90 ; Hypertension, unspecified type I10 and Fatigue, unspecified type R53.83 [place] [id number] [place] [address] 31119- 4030 Feb, [place] [id number] [place] [address] 86419- 2606 Feb, BMI 45.0-49.9, adult Z68.42 [place] [id number] [place] [address] 37752- 9923 Feb, Mood disorder F39 [place] [id number] [place] [address] 44574- 8175 Feb, [place] [id number] [place] [address] 99427- 2820 Feb, Mood disorder F39 [place] [id number] [place] [address] 06801- 9738 Feb, Other chronic pain G89.29 ; Anxiety F41.9 and Diabetes with other specified manifestations, type II or unspecified type, not stated as uncontrolled 250.80 [place] [id number] [place] [address] 51488- 9017 Feb, BMI 40.0-44.9, adult Z68.41 [place] [id number] [place] [address] 07644- 4269 Feb, Pain in right knee M25.561 and Other chronic pain G89.29 [place] [id number] [place] [address] 15553- 7694 Feb, [place] [id number] [place] [address] 96576- 1781 Feb, BMI 45.0-49.9, adult Z68.42 ; Gait disturbance R26.9 ; Other specified mental disorders due to known physiological condition F06.8 ; Weakness R53.1 ; Frequent falls R29.6 and Self-care deficit for bathing R46.0 [facility] [id number] [place] [address] 37682- 3577 Feb, Pain in right knee M25.561 and Other chronic pain G89.29 [facility] [address] 62386- 9075 Jan, Mood disorder F39 [place] [address] 02069- 6794 Jan, BMI 45.0-49.9, adult Z68.42 and 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 [place] [address] 49384- 3682 Jan, [facility] [address] 36710- 6828 Jan, [facility] [address] 11605- 7929 Jan, [facility] [address] 98271- 6199 Jan, 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 [facility] [address] 00779- 2923 Jan, [facility] [address] 77781- 1107 Jan, [facility] [address] 14237- 6783 Jan, [facility] [address] 50561- 1771 Jan, Allergic reaction to drug, initial encounter T78.40XA [facility] [address] 79307- 4262 17 Jan, 2018 BMI 45.0-49.9, adult Z68.42 and Facial droop R29.810 [place] [id number] [place] [address] 42879- 6278 14 Jan, 2018 Mood disorder F39 [place] [address] 31424- 8311 11 Jan, 2018 Dermatomyositis M33.90 and BMI 40.0-44.9, adult Z68.41 [place] [address] 69371- 5004 10 Jan, 2018 [place] [address] 00802- 5468 05 Jan, 2018 [place] [address] 90509- 0252 04 Jan, 2018 Irritation of left eye H57.8 and BMI 40.0-44.9, adult Z68.41 [place] [address] 92680- 7538 Dec, Diabetes type 2, controlled E11.9 [place] [address] 13665- 9756 Dec, Acute right ankle pain M25.571 [place] [address] 71668- 9890 Dec, Other chronic pain G89.29 ; Diabetes type 2, controlled E11.9 ; Gait disturbance R26.9 ; Weakness R53.1 and Muscle spasm M62.838 [place] [id number] [place] [address] 89382- 6201 Dec, Acute non-recurrent maxillary sinusitis J01.00 [place] [id number] [place] [address] 38389- 9207 Dec, [place] [address] 07454- 7634 Dec, [facility] [id number] [place] [address] 74155- 0663 Dec, Acute non-recurrent maxillary sinusitis J01.00 [facility] [id number] [place] [address] 35958- 9041 Dec, Lumbago with sciatica, right side M54.41 and Lupus erythematosus L93.0 [facility] [id number] [place] [address] 07859- 9990 Dec, Mood disorder F39 [facility] [id number] [place] [address] 91438- 5489 Dec, Mood disorder F39 [facility] [id number] [place] [address] 85577- 4316 Dec, [facility] [id number] [place] [address] 59304- 5425 Dec, Acute right ankle pain M25.571 [facility] [id number] [place] [address] 59811- 3717 Nov, Lumbar radiculopathy M54.16 [facility] [id number] [place] [address] 48667- 2313 Nov, [facility] [id number] [place] [address] 56367- 9379 Nov, Mood disorder F39 [facility] [id number] [place] [address] 57831- 8180 Nov, Lumbago with sciatica, right side M54.41 and Other chronic pain G89.29 [facility] [address] 33372- 5432 Nov, Acute right ankle pain M25.571 [facility] [id number] [place] [address] 04068- 4315 Nov, [facility] [address] 70762- 0771 Oct, [facility] [id number] [place] [address] 90348- 3894 Oct, Plantar wart of both feet B07.0 [facility] [id number] [place] [address] 89992- 1928 Oct, [facility] [id number] [place] [address] 32032- 5234 Oct, Acute right ankle pain M25.571 and Plantar wart of both feet B07.0 [facility] [id number] [place] [address] 60070- 1580 September, Other chronic pain G89.29 [facility] [id number] [place] [address] 66176- 0004 September, Other chronic pain G89.29 [facility] [id number] [place] [address] 84221- 5520 September, Other chronic pain G89.29 [facility] [id number] [place] [address] 00573- 9426 Aug, Mood disorder F39 [place] [id number] [place] [address] 35392- 8852 Aug, Other chronic pain G89.29 ; Controlled type 2 diabetes mellitus without complication, without long-term current use of insulin E11.9 ; Low back pain M54.5 and Tinea corporis B35.4 [facility] [id number] [place] [address] 30424- 0971 Aug, Mood disorder F39 and Anxiety F41.9 [place] [address] 12638- 6087 Aug, Mood disorder F39 and Anxiety F41.9 [facility] [id number] [place] [address] 16743- 3507 Jul, [facility] [id number] [place] [address] 86558 -4951 13 Jul, 2017 Scabies B86 and BMI 45.0-49.9, adult Z68.42 [place] [id number] [place] [address] 95607- 3639 Jul, [place] [id number] [place] [address] 00880- 6154 Jul, Mood disorder F39 and Anxiety F41.9 [place] [id number] [place] [address] 51925- 3217 Jul, [facility] [place] [address] 93137 -6254 27 Jun, 2017 Bronchitis J40 ; Dark urine R82.99 and BMI 45.0-49.9, adult Z68.42 [place] [id number] [place] [address] 24781- 4966 14 Jun, 2017 Acute pain of right shoulder M25.511 and Acute pain of right knee M25.561 [place] [id number] [place] [address] 28147- 7971 May, BMI 40.0-44.9, adult Z68.41 ; Controlled type 2 diabetes mellitus without complication, without long-term current use of insulin E11.9 ; Muscle cramping R25.2 ; Hot flashes R23.2 ; Mood disorder F39 ; Anxiety F41.9 and Morbid (severe) obesity due to excess calories E66.01 [place] [address] [place] [address] 03634- 6637 May, BMI 40.0-44.9, adult Z68.41 ; Controlled type 2 diabetes mellitus without complication, without long-term current use of insulin E11.9 ; Muscle cramping R25.2 and Hot flashes R23.2 [place] [address] [place] [address] 99132- 2022 May, Tachycardia with heart rate 121-140 beats per minute R00.0 ; Morbid (severe) obesity due to excess calories E66.01 ; Diabetes type 2, controlled E11.9 and Enlarged thyroid gland E04.9 [place] [address] 96410- 8978 25 May, 2017 Encounter for well woman [...] and Screening breast examination Z12.31 [place] [address] 22162- 3964 Apr, Mood disorder F39 ; Other chronic pain G89.29 and Anxiety F41.9 [place] [address] 80290- 6852 Apr, Lumbago with sciatica, left side M54.42 and Other chronic pain G89.29 [place] [address] 36781- 3236 Apr, Lupus erythematosus L93.0 [place] [address] 11284- 6017 Mar, Plantar wart of both feet B07.0 [place] [address] 24195- 5907 Mar, Lupus erythematosus L93.0 and Sinus drainage J34.89 [place] [address] 19468- 8210 Mar, Mood disorder F39 ; Other chronic pain G89.29 and Anxiety F41.9 [place] [address] 23011- 7480 Mar, Mood disorder F39 ; Arthritis M19.90 and Plantar warts B07.0 [place] [id number] [place] [address] 19282- 5832 Feb, Lupus erythematosus L93.0 [facility] [id number] [place] [address] 40968- 7660 Feb, Other chronic pain G89.29 [place] [id number] [place] [address] 70531- 4881 Feb, Mood disorder F39 and Anxiety F41.9 [place] [id number] [place] [address] 68482- 1140 Jan, [place] [address] 71844- 0978 Jan, Mood disorder F39 [place] [id number] [place] [address] 85066- 9043 Dec, Nail, ingrown L60.0 [place] [id number] [place] [address] 20118- 2306 Dec, Nail, ingrown L60.0 [place] [id number] [place] [address] 92448- 0773 Nov, Mood disorder F39 and Anxiety F41.9 [place] [id number] [place] [address] 81880- 4043 Nov, Sinus drainage J34.89 ; Hot flashes R23.2 ; Anxiety F41.9 and Diabetes type 2, controlled E11.9 [place] [address] [place] [address] 65313- 6416 Nov, Nail, ingrown L60.0 [place] [id number] [place] [address] 29561- 2916 Oct, Anxiety F41.9 and Mood disorder F39 [place] [id number] [place] [address] 47573- 0717 Oct, Nail, ingrown L60.0 and Anxiety F41.9 [place] [address] [address]- 9337 Oct, Lupus erythematosus L93.0 [facility] [id number] [place] [address] 97044- 1639 September, [facility] [id number] [place] [address] 70493- 5862 September, [facility] [id number] [place] [address] 50256- 2321 September, Lupus erythematosus L93.0 [facility] [id number] [place] [address] 08692- 5746 Aug, [facility] [id number] [place] [address] 40652- 3369 Aug, Mood disorder F39 and Anxiety F41.9 [facility] [id number] [place] [address] 99875- 9934 Aug, Lupus erythematosus L93.0 ; Diabetes type 2, controlled E11.9 and Localized edema R60.0 [facility] [id number] [place] [address] 50856- 4840 Aug, [facility] [id number] [place] [address] 21090- 3515 Jul, Anxiety F41.9 and Mood disorder F39 [facility] [id number] [place] [address] 90678- 6991 Jul, Diabetes type 2, controlled E11.9 [facility] [address] [place] [address] 04656- 5259 Jun, Anxiety F41.9 [facility] [id number] [place] [address] 00051- 4845 May, [facility] [id number] [place] [address] 24502- 2074 May, [facility] [id number] [place] [address] 59376- 0545 May, Nausea R11.0 ; Other chronic pain G89.29 and Pain in right knee M25.561 [place] [address] 07436- 5887 May, [place] [id number] [place] [address] 07604- 2628 Apr, Tear of medial meniscus of right knee, current, unspecified tear type, subsequent encounter S83.241D and Tear of lateral meniscus of right knee, current, unspecified tear type, subsequent encounter S83.281D [place] [id number] [place] [address] 59636- 6120 Apr, Anxiety F41.9 and Mood disorder F39 [place] [id number] [place] [address] 65297- 0091 Apr, Anxiety F41.9 [place] [address] 45315- 8448 Apr, [place] [id number] [place] [address] 24842- 0285 Mar, [place] [id number] [place] [address] 61238- 7300 Mar, Lupus erythematosus L93.0 and Diabetes type 2, controlled E11.9 [place] [id number] [place] [address] 44981- 2456 Mar, Mood disorder F39 [place] [id number] [place] [address] 72599- 8986 Mar, Tear of lateral meniscus of right knee, current, unspecified tear type, initial encounter S83.281A and Osteoarthritis of right knee, unspecified osteoarthritis type M17.9 [facility] [id number] [place] [address] 09077- 7317 02 Mar, 2016 [place] [id number] [place] [address] 31541- 0824 Feb, Mood disorder F39 [facility] [address] [address]- 9616 Feb, Rash R21 [facility] [id number] [place] [address] 03459- 0296 Feb, [facility] [id number] [place] [address] 14431- 3651 Jan, Other chronic pain G89.29 and Muscle spasm M62.838 [facility] [id number] [place] [address] 93453- 4925 Jan, Mood disorder F39 [facility] [id number] [place] [address] 16883- 8958 Jan, Pain in right knee M25.561 ; Other chronic pain G89.29 and Muscle spasm M62.838 [facility] [id number] [place] [address] 86856- 0415 Dec, [facility] [id number] [place] [address] 33743- 9933 Dec, [facility] [id number] [place] [address] 05954- 7901 Nov, [facility] [address] [place] [address] 38088- 2935 Nov, Mood disorder F39 [facility] [id number] [place] [address] 21603- 9092 Nov, Diabetes type 2, controlled E11.9 ; Bronchitis J40 ; Edema, unspecified type R60.9 ; Weight gain R63.5 and Right knee pain, unspecified chronicity M25.561 [facility] [id number] [place] [address] 89334- 3997 Oct, Mood disorder F39 [facility] [address] [address]- 7162 Oct, Lupus erythematosus L93.0 and Bilateral edema of lower extremity R60.0 [facility] [id number] [place] [address] 84205- 3879 16 Oct, 2015 Mood disorder F39 and Anxiety F41.9 [facility] [id number] [place] [address] 76586- 5638 September, Mood disorder F39 ; Anxiety F41.9 and Anger reaction R45.4 [place] [address] 55236- 4279 September, Diabetes type 2, controlled E11.9 ; Edema, unspecified type R60.9 and Fatigue, unspecified type R53.83 [place] [address] 28067- 4047 Aug, Mood disorder F39 and Generalized anxiety disorder F41.1 [place] [address] 25279- 4227 Aug, Diabetes type 2, controlled E11.9 ; Sinusitis J32.9 and Mood disorder F39 [place] [id number] [place] [address] 62637- 0564 Aug, Lupus erythematosus L93.0 [place] [id number] [place] [address] 68615- 8768 Aug, [place] [id number] [place] [address] 62431- 7132 Aug, [place] [id number] [place] [address] 99942- 4065 Jul, Diabetes type 2, controlled E11.9 [facility] [id number] [place] [address] 79227- 4625 Jul, Mood disorder F39 and Depression F32.9 [facility] [id number] [place] [address] 94841- 0487 Jul, Lupus erythematosus L93.0 and Diabetes type 2, controlled E11.9 [facility] [address] [phone] Jul, Mood disorder F39 and Anxiety F41.9 [facility] [address] [address] Jul, [facility] [id number] [place] [address] 42361- 7406 Jul, [facility] [id number] [place] [address] [phone]- [phone] Jun, Mood disorder F39 and Anxiety F41.9 [facility] [id number] [place] [address] 76798- 7479 Jun, Mood disorder F39 [facility] [id number] [place] [address] [phone]- [phone] 18 Jun, 2015 [facility] [id number] [place] [address] 37988- 3703 Jun, [facility] [id number] [place] [address] 91258- 8634 Jun, Mood disorder F39 [facility] [id number] [place] [address] 81947- 2645 Jun, [facility] [id number] [place] [address] 63483- [phone] May, [facility] [id number] [address] May, [facility] [id number] [place] [address] 72320- 9508 May, [facility] [id number] [place] [address] 76943- 9910 May, [facility] [id number] [place] [address] 14573- 1299 May, Anxiety F41.9 ; Dermatomyositis M33.90 and Diabetes type 2, controlled E11.9 [facility] [id number] [place] [address] 68062 -[phone] May, 2016 Sinusitis J32.9 and Cough R05 [facility] [id number] [place] [address] 48986- [phone] May, Mood disorder F39 [facility] [id number] [place] [address] [id number]- [phone] May, Adjustment disorder with mixed anxiety and depressed mood F43.23 [facility] [address] [address]- 8985 Apr, [facility] [id number] [place] [address] 08271- 3556 Apr, [facility] [id number] [place] [address] 84070- 1321 Apr, Generalized anxiety disorder F41.1 and Mood disorder F39 [facility] [address] 34889- 1521 Mar, [facility] [id number] [place] [address] 35007- 3514 Mar, [facility] [address] 86327- 3371 Mar, [facility] [id number] [place] [address] 31147- 1240 Mar, Mood disorder F39 [facility] [id number] [place] [address] 96465- 0102 Feb, [facility] [id number] [place] [address] 68222- 9429 Feb, Diabetes E11.9 and Bronchitis J40 [facility] [id number] [place] [address] 85674- 5345 Feb, [facility] [id number] [place] [address] 17061- 9640 Feb, [facility] [id number] [place] [address] 03172- 7660 Feb, Major depression, recurrent, full remission F33.42 and KELLY ( generalized anxiety disorder) F41.1 [place] [id number] [place] [address] 95110- 5740 Feb, [place] [id number] [place] [address] 93960- 3902 Feb, Single major depressive episode, in partial or unspecified remission F32.5 [place] [id number] [place] [address] 57253- 3523 Jan, Fatigue 780.[address] 38721- 7412 Jan, [place] [id number] [place] [address] 66243- 2357 Jan, Diabetes with other specified manifestations, type II or unspecified type, not stated as uncontrolled 250.80 [place] [id number] [place] [address] 60118- 1009 Jan, [place] [id number] [place] [address] 40563- 2727 Dec, Hot flashes 627.2 ; Memory loss 780.93 and Joint pain 719.40 [place] [id number] [place] [address] 57435- 0238 Dec, Major depression, recurrent 296.30 ; Generalized anxiety disorder 300.02 ; Adjustment disorder with depressed mood 309.0 and No condition on Lund II V71.09 [place] [id number] [place] [address] 32029- 0480 Dec, [place] [id number] [place] [address] 09551- 8093 Nov, Cognitive and neurobehavioral dysfunction 294.9 ; Major depressive disorder, recurrent episode, moderate degree 296.32 and Anxiety state , unspecified 300.00 [place] [id number] [place] [address] 00029- 7011 Nov, [place] [address] [address]- 9157 Nov, Bronchitis 490 and Diabetes with other specified manifestations, type II or unspecified type, not stated as uncontrolled 250.80 [place] [id number] [place] [address] 96117- 4982 Nov, Major depressive disorder, recurrent episode, moderate 296.32 and Anxiety disorder, unspecified 300.00 [place] [id number] [place] [address] 96946- 7755 Nov, Anxiety, generalized 300.02 ; Intermittent explosive disorder 312.34 ; No condition on Lund II V71.09 and No condition on axis III V71.09 [place] [id number] [place] [address] 31832- 4079 Oct, Diabetes with other specified manifestations, type II or unspecified type, not stated as uncontrolled 250.80 ; Urinary tract infection, site not specified 599.0 and Bronchitis [address] [place] [address] 66939- 5796 Oct, Intermittent explosive disorder 312.34 ; Bipolar 1 disorder , depressed, moderate 296.52 ; Major depression, chronic 296.20 ; No condition on Lund II V71.09 and No condition on axis III V71.[id number] [place] [address] 05790- 3933 Oct, Major depressive disorder, recurrent episode, moderate 296.32 ; Anxiety state 300.00 ; Cognitive decline 294.9 and No condition on Lund II V71.09 [address] [address]- 0782 Oct, [place] [id number] [place] [address] 22452- 4197 04 Oct, 2014 Major depressive disorder, recurrent episode, moderate 296.32 ; Anxiety disorder, unspecified 300.00 and Persistent disorder of initiating or maintaining sleep 307.42 [place] [id number] [address]- 6408 September, Diabetes with other specified manifestations, type II or unspecified type, not stated as uncontrolled 250.80 ; Memory loss 780.93 and Cognitive complaints 799.59 [facility] [address] 6115 September, No condition on Lund II V71.09 ; Major depression, recurrent 296.30 and Persistent mood [affective] disorder, unspecified 296.90 [facility] [address] [address]- 3786 Aug, [facility] [id number] [place] [address] 75927- 6399 Aug, [facility] [id number] 9936 Aug, [facility] [address] [address]- 0804 Jul, [facility] [address] 8638 Jul, [facility] [address] 4194 Jul, [facility] [address] 8789 Jul, [facility] [address] [address]- 7996 Jul, [facility] [address] [address]- 8953 Jun, [facility] [address] [address]- 2026 Jun, [facility] [address] 9616 Jun, [facility] [address] [address]- 3926 Jun, [facility] [place] [facility] [address] [id number] [place] [address]- 3593 Jun, 2014 [facility] [place] [facility] [address] [id number] [place] [address]- 1314 Jun, 2014 [facility] [place] [facility] [address] [id number] [place] [address]- 5165 Jun, 2014 [facility] [place] [facility] [address] [id number] [place] [address]- 4566 Jun, 2014 [facility] [place] [facility] [address] [id number] [place] [address]- 3207 Jun, 2014 [facility] [place] [facility] [address] [id number] [place] [address]- 4426 Jun, 2014 [facility] [place] [facility] [address] [facility] [id number] [place] [address]- 0486 Jun, 2014 [facility] [place] [facility] [address] [facility] [id number] [place] [address]- 7210 Jun, 2014 [facility] [place] [facility] [address] [facility] [id number] [place] [address]- 1791 Jun, 2014 [facility] [place] [facility] [address] [facility] [id number] [place] [address]- 7482 May, [facility] [place] [facility] [address] [facility] [id number] [place] [address]- 2353 May, [facility] [place] [facility] [address] [id number] [place] [address]- 9760 Apr, [facility] [place] [facility] [address] [id number] [place] [address]- 7489 Apr, [facility] [place] [facility] [address] [facility] [id number] [place] [address]- 7159 Apr, [facility] [place] [facility] [address] [facility] [id number] [place] [address]- 3389 Apr, [facility] [place] [facility] [address] [id number] [place] [address]- 8133 Apr, [facility] [address] [id number] [place] [address]- 7746 Apr, [facility] [address] [id number] [place] [address]- 0756 Apr, [facility] [address] [id number] [place] [address]- 9036 Apr, [facility] [address] [id number] [place] [address]- 7400 Apr, [facility] [address] [id number] [place] [address]- 3495 Apr, [facility] [address] [id number] [place] [address]- 7162 Apr, [facility] [address] [id number] [place] [address]- 1317 Apr, [facility] [address] [id number] [place] [address]- 5384 Apr, [facility] [address] [id number] [place] [address]- 6809 Apr, [facility] [address] [id number] [place] [address]- 7586 Apr, [facility] [place] [facility] [address] [id number] [place] [address]- 5016 Apr, [facility] [address] [id number] [place] [address]- 1481 Apr, [facility] [place] [facility] [address] [id number] [place] [address]- 0472 Apr, [facility] [place] [facility] [address] [id number] [place] [address]- 4685 Apr, [facility] [place] [facility] [address] [id number] [place] 6917 Apr, [facility] [place] [facility] [address] [id number] [place] [address]- 5351 Mar, [facility] [place] [facility] [address] [id number] [place] [address]- 8762 Mar, [facility] [place] [facility] [address] [id number] [place] [address]- 9087 Mar, [facility] [place] [facility] [address] [id number] [place] [address]- 3411 Mar, [facility] [place] [facility] [address] [id number] [place] [address]- 3149 Mar, [facility] [place] [facility] [address] [id number] [place] [address]- 5613 Mar, [facility] [place] [facility] [address] [id number] [place] [address]- 8179 Mar, [facility] [place] [facility] [address] [id number] [address]- 9153 Mar, [facility] [place] [facility] [address] [id number] [place] [address]- 0964 Mar, [facility] [place] [facility] [address] [id number] [address]- 3740 Mar, [facility] [place] [facility] [address] [id number] [place] [address]- 6706 Mar, [facility] [place] [facility] [address] [id number] [place] [address]- 1763 Mar, [facility] [place] [facility] [address] [id number] [place] [address]- 0502 Mar, [facility] [place] [facility] [address] [id number] [place] [address]- 8419 Feb, [facility] [place] [facility] [address] [id number] [place] [address]- 4224 Feb, [facility] [place] [facility] [address] [id number] [place] [address]- 7745 Feb, [facility] [place] [facility] [address] [id number] [place] [address]- 9909 Feb, [facility] [place] [facility] [address] [id number] [place] [address]- 5832 Feb, [facility] [place] [facility] [address] [id number] [place] [address]- 9917 Feb, [facility] [place] [facility] [address] [id number] [place] [address]- 7181 Feb, [facility] [place] [facility] [address] [id number] [place] [address]- 3299 Feb, [facility] [place] [facility] [address] [id number] [place] [address]- 6141 Feb, [facility] [place] [facility] [address] [id number] [place] [address]- 1602 Feb, [facility] [place] [facility] [address] [id number] [place] [address]- 5859 Feb, [facility] [place] [facility] [address] [id number] [place] [address]- 9258 Feb, [facility] [place] [facility] [address] [id number] [place] [address]- 9641 10 Feb, 2014 [facility] [place] [facility] [address] [id number] [place] [address]- 7424 07 Feb, 2014 [facility] [place] [facility] [address] [id number] [place] [address]- 4688 07 Feb, 2014 [facility] [place] [facility] [address] [id number] [place] [address]- 7363 10 Jan, 2014 [facility] [place] [facility] [address] [id number] [place] [address]- 8223 08 Jan, 2013 [facility] [place] [facility] [address] [facility] [id number] [place] [address]- 4779 08 Jan, 2013 [facility] [place] [facility] [address] [id number] [place] [address]- 0238 Jan, [facility] [place] [facility] [address] [id number] [place] [address]- 0028 Jan, [facility] [place] [facility] [address] [id number] [place] [address]- 5947 Dec, [facility] [place] [facility] [address] [id number] [place] [address]- 2229 Dec, [facility] [place] [facility] [address] [id number] [place] [address]- 8654 Dec, [facility] [place] [facility] [address] [id number] [place] [address]- 9956 Dec, [facility] [place] [facility] [address] [id number] [place] [address]- 0673 Nov, [facility] [place] [facility] [address] [id number] [place] [address]- 5438 Nov, [facility] [place] [facility] [address] [id number] [place] [address]- 9614 Nov, [facility] [place] [facility] [address] [id number] [place] [address]- 3993 Nov, [facility] [place] [facility] [address] [id number] [place] [address]- 7220 Nov, [facility] [place] [facility] [address] [id number] [place] [address]- 9092 Nov, [facility] [place] [facility] [address] [id number] [place] [address]- 6481 Nov, [facility] [place] [facility] [address] [id number] [place] [address]- 4383 Nov, [facility] [place] [facility] [address] [id number] [place] [address]- 1686 Nov, [facility] [place] [facility] [address] [id number] [place] [address]- 3270 Nov, [facility] [place] [facility] [address] [id number] [place] [address]- 2102 Oct, [facility] [place] [facility] [address] [id number] [place] [address]- 1493 Oct, [facility] [place] [facility] [address] [id number] [place] [address]- 0729 September, [facility] [place] [facility] [address] [id number] [place] [address]- 9302 September, [facility] [place] [facility] [address] [id number] [place] [address]- 8238 September, [facility] [place] [facility] [address] [id number] [place] [address]- 5766 September, [facility] [place] [facility] [address] [id number] [place] [address]- 7666 Aug, [facility] [place] [facility] [address] [id number] [place] [address]- 6556 Aug, [facility] [place] [facility] [address] [id number] [place] [address]- 9110 Aug, [facility] [place] [facility] [address] [id number] [place] [address]- 6311 Jul, [facility] [place] [facility] [address] [id number] [place] [address]- 6930 24 Jul, 2013 [facility] [place] [facility] [address] [id number] [place] [address]- 0119 Jul, [facility] [place] [facility] [address] [id number] [place] [address]- 8745 Jul, [facility] [place] [facility] [address] [id number] [place] [address]- 7286 May, [facility] [place] [facility] [address] [id number] [place] [address]- 8099 May, [facility] [place] [facility] [address] [id number] [place] [address]- 1548 17 May, 2013 [facility] [address] [id number] [place] [address]- 3200 15 Mar, 2013 [facility] [place] [facility] [address] [id number] [place] [address]- 2662 15 Mar, 2013 [facility] [place] [facility] [address] [id number] [place] [address]- 3641 Mar, [facility] [place] [facility] [address] [id number] [place] [address]- 8238 Mar, [facility] [place] [facility] [address] [id number] [place] [address]- 2746 16 Feb, 2013 [facility] [place] [facility] [address] [id number] [place] [address]- 7722 16 Feb, 2013 [facility] [place] [facility] [address] [id number] [place] [address]- 1819 04 Feb, 2013 [facility] [place] [facility] [address] [id number] [place] [address]- 5926 16 Jan, 2013 [facility] [place] [facility] [address] [id number] [place] [address]- 8605 12 Jan, 2013 [facility] [place] [facility] [address] [id number] [place] [address]- 7798 Jan, [facility] [place] [facility] [address] [id number] [place] [address]- 1170 Dec, [facility] [place] [facility] [address] [id number] [place] [address]- 9700 Dec, [facility] [place] [facility] [address] [id number] [place] [address]- 1697 Dec, [facility] [place] [facility] [address] [id number] [place] [address]- 7687 Dec, [facility] [place] [facility] [address] [id number] [place] [address]- 4962 Nov, [facility] [place] [facility] [address] [id number] [place] [address]- 8517 Oct, [facility] [address] [id number] [place] [address]- 4426 Oct, [facility] [address] [id number] [place] [address]- 7832 September, [facility] [address] [id number] [place] [address]- 8905 September, [facility] [address] [id number] [place] [address]- 7405 September, [facility] [address] [id number] [place] [address]- 8965 Aug, [facility] [address] [id number] [place] [address]- 6768 Aug, [facility] [address] [id number] [place] [address]- 5709 Aug, [facility] [address] [id number] [place] [address]- 0500 Aug, [facility] [address] [id number] [place] [address]- 8829 Jul, [facility] [address] [id number] [place] [address]- 8402 Jul, [facility] [address] [id number] [place] [address]- 5277 21 Jul, 2012 [facility] [address] [id number] [place] [address]- 2431 15 Jul, 2012 [facility] [place] [facility] [address] [id number] [place] [address]- 9925 14 Jul, 2012 [facility] [place] [facility] [address] [id number] [place] [address]- 5098 13 Jul, 2012 [facility] [place] [facility] [address] [id number] [place] [address]- 7642 Jul, [facility] [address] [id number] [place] [address]- 7723 Jun, [facility] [address] [id number] [place] [address]- 8156 Jun, [facility] [address] [facility] [id number] [place] [address]- 6247 Jun, [facility] [address] [id number] [place] [address]- 9943 Jun, [facility] [address] [id number] [place] [address]- 1271 May, [facility] [address] [id number] [place] [address]- 6999 May, [facility] [address] [facility] [id number] [place] [address]- 8837 May, [facility] [address] [facility] [id number] [place] [address]- 5519 May, [facility] [address] [facility] [id number] [place] [address]- 6372 May, [facility] [address] [facility] [id number] [place] [address]- 8139 Apr, [facility] [address] [facility] [id number] [place] [address]- 5334 Apr, [facility] [place] [facility] [address] [id number] [place] [address]- 6308 Mar, [facility] [place] [facility] [address] [id number] [place] [address]- 5077 Mar, [facility] [place] [facility] [address] [facility] [id number] [place] [address] Mar, [facility] [place] [facility] [address] [facility] [id number] [place] [address] Mar, [facility] [place] [facility] [address] [id number] [place] [address] Mar, [facility] [place] [facility] [address] [id number] [place] [address] Mar, [facility] [place] [facility] [address] [id number] [place] [address] Mar, [facility] [place] [facility] [address] [id number] [place] [address] Mar, [facility] [place] [facility] [address] [id number] [place] [address] Mar, [facility] [place] [facility] [address] [id number] [place] [address] Mar, [facility] [place] [facility] [address] [id number] [place] [address] Feb, [facility] [place] [facility] [address] [id number] [place] [address] Feb, [facility] [place] [facility] [address] [id number] [place] [address] Feb, [facility] [place] [facility] [address] [id number] [place] [address] Feb, [facility] [place] [facility] [address] [facility] [id number] [place] [address] Feb, [facility] [place] [facility] [address] [id number] [place] [address] Feb, [facility] [place] [facility] [address] [id number] [place] [address] Feb, [facility] [place] [facility] [address] [id number] [place] [address] Jan, [facility] [place] [facility] [address] [id number] [place] [address] Jan, [facility] [place] [facility] [address] [id number] [place] [address] Dec, [facility] [place] [facility] [address] [id number] [place] [address] Dec, [facility] [place] [facility] [address] [id number] [place] [address] Dec, [facility] [place] [facility] [address] [id number] [place] [address]- [address] Dec, [facility] [place] [facility] [address] [id number] [place] [address] Dec, [facility] [place] [facility] [address] [id number] [place] [address] Dec, [facility] [place] [facility] [address] [id number] [place] [address] Nov, [facility] [place] [facility] [address] [id number] [place] [address] Nov, [facility] [place] [facility] [address] [id number] [place] [address] Nov, [facility] [place] [facility] [address] [id number] [place] [address] Nov, [facility] [place] [facility] [address] [id number] [place] [address] September, [facility] [place] [facility] [address] [id number] [place] [address] September, [facility] [place] [facility] [address] [id number] [place] [address] September, [facility] [place] [facility] [address] [id number] [place] [address] Jul, [facility] [place] [facility] [address] [id number] [place] [address] Jun, [facility] [place] [facility] [address] [id number] [place] [address] Jun, [facility] [place] [facility] [address] [id number] [address] 13 Jun, 2011 [facility] [id number] [address] Apr, [facility] [id number] [address] Mar, [facility] [id number] [address] Mar, [facility] [id number] [id number] Feb, [facility] [id number] [place] [address] Feb, [facility] [id number] [address] Feb, [facility] [id number] [address] Jul, [facility] [address] [id number] [address] 20 Feb, 2008 IMMUNIZATIONS No Known Immunizations SOCIAL HISTORY Never Assessed REASON FOR VISIT Medication refill request PLAN OF CARE VITAL SIGNS MEDICATIONS [...]
--- OUTSIDE RECORDS SUMMARY | 2018-05-09 22:24 | XMS REPORT ---
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 Name Role Phone MACY TAMAYO Unavailable PROBLEMS Type Condition ICD9-CM Code [id number] Code Onset Dates Condition Status SNOMED Code Problem Dermatomyositis M33.90 Active 570968795 Problem Lumbago with sciatica, right side M54.41 Active 925379484 Problem Morbid (severe) obesity due to excess calories E66.01 Active 237266500 Problem Diabetes with other specified manifestations, type II or unspecified type, not stated as uncontrolled 250.80 Active 460312466 Problem Osteoarthritis of right knee, unspecified osteoarthritis type M17.9 Active 560982706 Problem Hypertension, unspecified type I10 Active 02187644 Problem Menopause Z78.0 Active 325162678 Problem Diabetes type 2, controlled E11.9 Active 12404406 Problem Facial droop R29.810 Active 49856072 Problem Gait disturbance R26.9 Active 27586680 Problem Other specified mental disorders due to known physiological condition F06.8 Active 91193024 Problem Frequent falls R29.6 Active 505055526 Problem Plantar warts B07.0 Active 57596519 Problem Arthritis M19.90 Active 5895049 Problem Anxiety F41.9 Active 12640604 Problem Other chronic pain G89.29 Active 41029757 Problem Controlled type 2 diabetes mellitus without complication, without long -term current use of insulin E11.9 Active 363973007 Problem Body mass index (BMI) of 45.0-49.9 in adult Z68.42 Active 587190354 Problem Allergic rhinitis due to pollen J30.1 Active 26655642 Problem Plantar wart of both feet B07.0 Active [id number] Problem Tachycardia with heart rate 121-140 beats per minute R00.0 Active 2877509 Problem Mood disorder F39 Active 97665354 Problem Lumbago with sciatica, left side M54.42 Active 433958626 Problem Enlarged thyroid gland E04.9 Active 1186181 ALLERGIES No Information ENCOUNTERS Encounter Location Date Diagnosis [facility] [id number] [place] [address] 36146- 7175 May, [facility] [id number] [place] [address] 41293- 0180 Apr, [facility] [id number] [place] [address] 09711- 9050 Apr, [facility] [id number] [place] [address] 77428- 6807 Mar, [facility] [id number] [place] [address] 52371- 0220 Mar, [facility] [id number] [place] [address] 82642- 0567 Mar, [facility] [id number] [place] [address] 01780- 0411 Mar, BMI 45.0-49.9, adult Z68.42 [facility] [id number] [place] [address] 22076- 0927 Mar, [facility] [id number] [place] [address] 84257- 0213 Mar, BMI 45.0-49.9, adult Z68.42 ; Lupus erythematosus L93.0 and Dermatomyositis M33.90 [facility] [id number] [place] [address] 07874- 8025 Mar, Pain in right knee M25.561 and Other chronic pain G89.29 [facility] [id number] [place] [address] 91133 -2161 Mar, Vaginal itching N89.8 ; Urinary tract infection, site not specified N39.0 ; Hematuria, unspecified R31.9 and Vaginal arabella B37.3 [facility] [id number] [place] [address] 63205- 6981 Mar, Mood disorder F39 [place] [id number] [place] [address] 03308- 4614 Feb, BMI 40.0-44.9, adult Z68.41 ; Diabetes type 2, controlled E11.9 ; Osteoarthritis of right knee, unspecified osteoarthritis type M17.9 ; Dermatomyositis M33.90 ; Hypertension, unspecified type I10 and Fatigue, unspecified type R53.83 [place] [id number] [place] [address] 77126- 1280 Feb, [place] [id number] [place] [address] 23800- 6356 Feb, BMI 45.0-49.9, adult Z68.42 [place] [id number] [place] [address] 25393- 1520 Feb, Mood disorder F39 [place] [id number] [place] [address] 22324- 6148 Feb, [place] [id number] [place] [address] 97002- 3651 Feb, Mood disorder F39 [place] [id number] [place] [address] 11605- 8822 Feb, Other chronic pain G89.29 ; Anxiety F41.9 and Diabetes with other specified manifestations, type II or unspecified type, not stated as uncontrolled 250.80 [place] [id number] [place] [address] 65227- 5468 Feb, BMI 40.0-44.9, adult Z68.41 [place] [id number] [place] [address] 44674- 5975 Feb, Pain in right knee M25.561 and Other chronic pain G89.29 [place] [id number] [place] [address] 79109- 6718 Feb, [place] [id number] [place] [address] 40464- 5797 Feb, BMI 45.0-49.9, adult Z68.42 ; Gait disturbance R26.9 ; Other specified mental disorders due to known physiological condition F06.8 ; Weakness R53.1 ; Frequent falls R29.6 and Self-care deficit for bathing R46.0 [facility] [id number] [place] [address] 57033- 4210 Feb, Pain in right knee M25.561 and Other chronic pain G89.29 [facility] [address] 68155- 2382 Jan, Mood disorder F39 [place] [address] 99515- 4890 Jan, BMI 45.0-49.9, adult Z68.42 and 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 [place] [address] 85250- 2118 Jan, [facility] [address] 82437- 3172 Jan, [facility] [address] 05385- 9580 Jan, [facility] [address] 58601- 1974 Jan, 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 [facility] [address] 90754- 6604 Jan, [facility] [address] 07258- 5763 Jan, [facility] [address] 25737- 3782 Jan, [facility] [address] 34846- 6552 Jan, Allergic reaction to drug, initial encounter T78.40XA [facility] [address] 68140- 4930 17 Jan, 2018 BMI 45.0-49.9, adult Z68.42 and Facial droop R29.810 [place] [id number] [place] [address] 93703- 4212 14 Jan, 2018 Mood disorder F39 [place] [address] 13536- 4382 11 Jan, 2018 Dermatomyositis M33.90 and BMI 40.0-44.9, adult Z68.41 [place] [address] 23884- 2277 10 Jan, 2018 [place] [address] 74205- 5063 05 Jan, 2018 [place] [address] 16848- 1364 04 Jan, 2018 Irritation of left eye H57.8 and BMI 40.0-44.9, adult Z68.41 [place] [address] 59903- 2933 Dec, Diabetes type 2, controlled E11.9 [place] [address] 95695- 1713 Dec, Acute right ankle pain M25.571 [place] [address] 79215- 7966 Dec, Other chronic pain G89.29 ; Diabetes type 2, controlled E11.9 ; Gait disturbance R26.9 ; Weakness R53.1 and Muscle spasm M62.838 [place] [id number] [place] [address] 23169- 7716 Dec, Acute non-recurrent maxillary sinusitis J01.00 [place] [id number] [place] [address] 33703- 1333 Dec, [place] [address] 21601- 2520 Dec, [facility] [id number] [place] [address] 59303- 6046 Dec, Acute non-recurrent maxillary sinusitis J01.00 [facility] [id number] [place] [address] 42833- 9577 Dec, Lumbago with sciatica, right side M54.41 and Lupus erythematosus L93.0 [facility] [id number] [place] [address] 22352- 2132 Dec, Mood disorder F39 [facility] [id number] [place] [address] 26018- 3573 Dec, Mood disorder F39 [facility] [id number] [place] [address] 36978- 7790 Dec, [facility] [id number] [place] [address] 56511- 2225 Dec, Acute right ankle pain M25.571 [facility] [id number] [place] [address] 44663- 6840 Nov, Lumbar radiculopathy M54.16 [facility] [id number] [place] [address] 27808- 1775 Nov, [facility] [id number] [place] [address] 58854- 5825 Nov, Mood disorder F39 [facility] [id number] [place] [address] 86401- 0265 Nov, Lumbago with sciatica, right side M54.41 and Other chronic pain G89.29 [facility] [address] 41720- 3847 Nov, Acute right ankle pain M25.571 [facility] [id number] [place] [address] 52295- 2445 Nov, [facility] [address] 16309- 7941 Oct, [facility] [id number] [place] [address] 23551- 0429 Oct, Plantar wart of both feet B07.0 [facility] [id number] [place] [address] 51075- 2442 Oct, [facility] [id number] [place] [address] 94007- 1735 Oct, Acute right ankle pain M25.571 and Plantar wart of both feet B07.0 [facility] [id number] [place] [address] 89562- 5510 September, Other chronic pain G89.29 [facility] [id number] [place] [address] 21159- 0696 September, Other chronic pain G89.29 [facility] [id number] [place] [address] 69832- 1820 September, Other chronic pain G89.29 [facility] [id number] [place] [address] 84083- 7757 Aug, Mood disorder F39 [place] [id number] [place] [address] 72631- 3475 Aug, Other chronic pain G89.29 ; Controlled type 2 diabetes mellitus without complication, without long-term current use of insulin E11.9 ; Low back pain M54.5 and Tinea corporis B35.4 [facility] [id number] [place] [address] 92507- 4063 Aug, Mood disorder F39 and Anxiety F41.9 [place] [address] 12657- 4480 Aug, Mood disorder F39 and Anxiety F41.9 [facility] [id number] [place] [address] 99424- 7410 Jul, [facility] [id number] [place] [address] 92301 -3701 13 Jul, 2017 Scabies B86 and BMI 45.0-49.9, adult Z68.42 [place] [id number] [place] [address] 29438- 5313 Jul, [place] [id number] [place] [address] 37486- 9748 Jul, Mood disorder F39 and Anxiety F41.9 [place] [id number] [place] [address] 82533- 5084 Jul, [facility] [place] [address] 55351 -5567 27 Jun, 2017 Bronchitis J40 ; Dark urine R82.99 and BMI 45.0-49.9, adult Z68.42 [place] [id number] [place] [address] 26209- 1167 14 Jun, 2017 Acute pain of right shoulder M25.511 and Acute pain of right knee M25.561 [place] [id number] [place] [address] 07098- 6547 May, BMI 40.0-44.9, adult Z68.41 ; Controlled type 2 diabetes mellitus without complication, without long-term current use of insulin E11.9 ; Muscle cramping R25.2 ; Hot flashes R23.2 ; Mood disorder F39 ; Anxiety F41.9 and Morbid (severe) obesity due to excess calories E66.01 [place] [address] [place] [address] 70067- 9913 May, BMI 40.0-44.9, adult Z68.41 ; Controlled type 2 diabetes mellitus without complication, without long-term current use of insulin E11.9 ; Muscle cramping R25.2 and Hot flashes R23.2 [place] [address] [place] [address] 10223- 5361 May, Tachycardia with heart rate 121-140 beats per minute R00.0 ; Morbid (severe) obesity due to excess calories E66.01 ; Diabetes type 2, controlled E11.9 and Enlarged thyroid gland E04.9 [place] [address] 57836- 0978 25 May, 2017 Encounter for well woman [...] Dysuria R30.0 and Screening breast examination Z12.31 [place] [address] 69207- 8389 Apr, Mood disorder F39 ; Other chronic pain G89.29 and Anxiety F41.9 [place] [address] 56903- 2908 Apr, Lumbago with sciatica, left side M54.42 and Other chronic pain G89.29 [place] [address] 83451- 9558 Apr, Lupus erythematosus L93.0 [place] [address] 61546- 5102 Mar, Plantar wart of both feet B07.0 [place] [address] 49146- 1740 Mar, Lupus erythematosus L93.0 and Sinus drainage J34.89 [place] [address] 10573- 2976 Mar, Mood disorder F39 ; Other chronic pain G89.29 and Anxiety F41.9 [place] [address] 49524- 4390 Mar, Mood disorder F39 ; Arthritis M19.90 and Plantar warts B07.0 [place] [id number] [place] [address] 09684- 9300 Feb, Lupus erythematosus L93.0 [facility] [id number] [place] [address] 89645- 0246 Feb, Other chronic pain G89.29 [place] [id number] [place] [address] 93672- 4793 Feb, Mood disorder F39 and Anxiety F41.9 [place] [id number] [place] [address] 69964- 1781 Jan, [place] [address] 15700- 8301 Jan, Mood disorder F39 [place] [id number] [place] [address] 32093- 6406 Dec, Nail, ingrown L60.0 [place] [id number] [place] [address] 85105- 5842 Dec, Nail, ingrown L60.0 [place] [id number] [place] [address] 94703- 7517 Nov, Mood disorder F39 and Anxiety F41.9 [place] [id number] [place] [address] 59540- 4129 Nov, Sinus drainage J34.89 ; Hot flashes R23.2 ; Anxiety F41.9 and Diabetes type 2, controlled E11.9 [place] [address] [place] [address] 67630- 3663 Nov, Nail, ingrown L60.0 [place] [id number] [place] [address] 82423- 9057 Oct, Anxiety F41.9 and Mood disorder F39 [place] [id number] [place] [address] 81717- 1174 Oct, Nail, ingrown L60.0 and Anxiety F41.9 [place] [address] [address]- 6386 Oct, Lupus erythematosus L93.0 [facility] [id number] [place] [address] 47037- 8723 September, [facility] [id number] [place] [address] 45649- 7093 September, [facility] [id number] [place] [address] 32080- 8510 September, Lupus erythematosus L93.0 [facility] [id number] [place] [address] 52172- 1659 Aug, [facility] [id number] [place] [address] 80782- 3419 Aug, Mood disorder F39 and Anxiety F41.9 [facility] [id number] [place] [address] 00053- 6708 Aug, Lupus erythematosus L93.0 ; Diabetes type 2, controlled E11.9 and Localized edema R60.0 [facility] [id number] [place] [address] 77039- 3958 Aug, [facility] [id number] [place] [address] 19138- 5992 Jul, Anxiety F41.9 and Mood disorder F39 [facility] [id number] [place] [address] 11901- 4590 Jul, Diabetes type 2, controlled E11.9 [facility] [address] [place] [address] 93381- 3690 Jun, Anxiety F41.9 [facility] [id number] [place] [address] 00403- 9497 May, [facility] [id number] [place] [address] 76831- 9782 May, [facility] [id number] [place] [address] 41617- 3705 May, Nausea R11.0 ; Other chronic pain G89.29 and Pain in right knee M25.561 [place] [address] 61459- 5344 May, [place] [id number] [place] [address] 51452- 1367 Apr, Tear of medial meniscus of right knee, current, unspecified tear type, subsequent encounter S83.241D and Tear of lateral meniscus of right knee, current, unspecified tear type, subsequent encounter S83.281D [place] [id number] [place] [address] 95655- 5974 Apr, Anxiety F41.9 and Mood disorder F39 [place] [id number] [place] [address] 43599- 7648 Apr, Anxiety F41.9 [place] [address] 65330- 8316 Apr, [place] [id number] [place] [address] 16577- 0803 Mar, [place] [id number] [place] [address] 67569- 3345 Mar, Lupus erythematosus L93.0 and Diabetes type 2, controlled E11.9 [place] [id number] [place] [address] 51185- 9361 Mar, Mood disorder F39 [place] [id number] [place] [address] 28804- 6531 Mar, Tear of lateral meniscus of right knee, current, unspecified tear type, initial encounter S83.281A and Osteoarthritis of right knee, unspecified osteoarthritis type M17.9 [facility] [id number] [place] [address] 01015- 5123 02 Mar, 2016 [place] [id number] [place] [address] 87970- 5017 Feb, Mood disorder F39 [facility] [address] [address]- 7858 Feb, Rash R21 [facility] [id number] [place] [address] 68639- 4716 Feb, [facility] [id number] [place] [address] 58835- 8327 Jan, Other chronic pain G89.29 and Muscle spasm M62.838 [facility] [id number] [place] [address] 44812- 6214 Jan, Mood disorder F39 [facility] [id number] [place] [address] 11663- 4017 Jan, Pain in right knee M25.561 ; Other chronic pain G89.29 and Muscle spasm M62.838 [facility] [id number] [place] [address] 70989- 1903 Dec, [facility] [id number] [place] [address] 49254- 1143 Dec, [facility] [id number] [place] [address] 91131- 4719 Nov, [facility] [address] [place] [address] 32085- 2617 Nov, Mood disorder F39 [facility] [id number] [place] [address] 17973- 6446 Nov, Diabetes type 2, controlled E11.9 ; Bronchitis J40 ; Edema, unspecified type R60.9 ; Weight gain R63.5 and Right knee pain, unspecified chronicity M25.561 [facility] [id number] [place] [address] 80713- 1796 Oct, Mood disorder F39 [facility] [address] [place] [address]- 6721 Oct, Lupus erythematosus L93.0 and Bilateral edema of lower extremity R60.0 [facility] [id number] [place] [address] 88784- 5733 16 Oct, 2015 Mood disorder F39 and Anxiety F41.9 [facility] [id number] [place] [address] 61765- 4978 September, Mood disorder F39 ; Anxiety F41.9 and Anger reaction R45.4 [place] [address] 37199- 2374 September, Diabetes type 2, controlled E11.9 ; Edema, unspecified type R60.9 and Fatigue, unspecified type R53.83 [place] [address] 93255- 7779 Aug, Mood disorder F39 and Generalized anxiety disorder F41.1 [place] [address] 01827- 8677 Aug, Diabetes type 2, controlled E11.9 ; Sinusitis J32.9 and Mood disorder F39 [place] [id number] [place] [address] 16821- 5075 Aug, Lupus erythematosus L93.0 [place] [id number] [place] [address] 93638- 4406 Aug, [place] [id number] [place] [address] 34344- 4435 Aug, [place] [id number] [place] [address] 56384- 4497 Jul, Diabetes type 2, controlled E11.9 [facility] [id number] [place] [address] 28814- 5166 Jul, Mood disorder F39 and Depression F32.9 [facility] [id number] [place] [address] 03353- 4972 Jul, Lupus erythematosus L93.0 and Diabetes type 2, controlled E11.9 [facility] [address] 76340- 6439 Jul, Mood disorder F39 and Anxiety F41.9 [facility] [address] [address] Jul, [facility] [id number] [place] [address] 23015- 9076 Jul, [facility] [id number] [place] [address] 13778- 9810 Jun, Mood disorder F39 and Anxiety F41.9 [facility] [id number] [place] [address] 48726- 8856 Jun, Mood disorder F39 [facility] [id number] [place] [address] [id number]- 0586 18 Jun, 2015 [facility] [id number] [place] [address] 17773- 2798 Jun, [facility] [id number] [place] [address] 39025- 7354 Jun, Mood disorder F39 [facility] [id number] [place] [address] 28048- 7907 Jun, [facility] [id number] [place] [address] 61315- 0543 May, [facility] [address] [address]13 May, [facility] [id number] [place] [address] 82269- 7797 May, [facility] [id number] [place] [address] 81848- 9771 May, [facility] [id number] [place] [address] 34004- 0589 May, Anxiety F41.9 ; Dermatomyositis M33.90 and Diabetes type 2, controlled E11.9 [facility] [id number] [place] [address] 15326 -2445 May, 2016 Sinusitis J32.9 and Cough R05 [facility] [id number] [place] [address] 13857- 2344 May, Mood disorder F39 [facility] [id number] [place] [address] 44942- 6125 May, Adjustment disorder with mixed anxiety and depressed mood F43.23 [facility] [address] 30380- 3977 Apr, [facility] [id number] [place] [address] 67102- 3705 Apr, [facility] [id number] [place] [address] 89643- 4175 Apr, Generalized anxiety disorder F41.1 and Mood disorder F39 [facility] [address] 69480- 9218 Mar, [facility] [id number] [place] [address] 73003- 5729 Mar, [facility] [address] 49741- 8193 Mar, [facility] [id number] [place] [address] 89135- 0973 Mar, Mood disorder F39 [facility] [id number] [place] [address] 44791- 3097 Feb, [facility] [id number] [place] [address] 09451- 6523 Feb, Diabetes E11.9 and Bronchitis J40 [facility] [id number] [place] [address] 01635- 1909 Feb, [facility] [id number] [place] [address] 51802- 8617 Feb, [facility] [id number] [place] [address] 60994- 0616 Feb, Major depression, recurrent, full remission F33.42 and KELLY ( generalized anxiety disorder) F41.1 [place] [id number] [place] [address] 04892- 8081 Feb, [place] [id number] [place] [address] 20734- 0440 Feb, Single major depressive episode, in partial or unspecified remission F32.5 [place] [id number] [place] [address] 15959- 6396 Jan, Fatigue 780.[address] 46442- 1742 Jan, [place] [id number] [place] [address] 94294- 2800 Jan, Diabetes with other specified manifestations, type II or unspecified type, not stated as uncontrolled 250.80 [place] [id number] [place] [address] 40197- 2967 Jan, [place] [id number] [place] [address] 82788- 2448 Dec, Hot flashes 627.2 ; Memory loss 780.93 and Joint pain 719.40 [place] [id number] [place] [address] 94541- 3208 Dec, Major depression, recurrent 296.30 ; Generalized anxiety disorder 300.02 ; Adjustment disorder with depressed mood 309.0 and No condition on [place] II V71.09 [place] [id number] [place] [address] 76482- 8958 Dec, [place] [id number] [place] [address] 68070- 6619 Nov, Cognitive and neurobehavioral dysfunction 294.9 ; Major depressive disorder, recurrent episode, moderate degree 296.32 and Anxiety state , unspecified 300.00 [place] [id number] [place] [address] 20399- 9109 Nov, [place] [address] [address]- 9222 Nov, Bronchitis 490 and Diabetes with other specified manifestations, type II or unspecified type, not stated as uncontrolled 250.80 [place] [id number] [place] [address] 86997- 4666 Nov, Major depressive disorder, recurrent episode, moderate 296.32 and Anxiety disorder, unspecified 300.00 [place] [id number] [place] [address] 63811- 8320 Nov, Anxiety, generalized 300.02 ; Intermittent explosive disorder 312.34 ; No condition on [place] II V71.09 and No condition on axis III V71.09 [place] [id number] [place] [address] 36014- 9728 Oct, Diabetes with other specified manifestations, type II or unspecified type, not stated as uncontrolled 250.80 ; Urinary tract infection, site not specified 599.0 and Bronchitis [address] [place] [address] 22992- 1339 Oct, Intermittent explosive disorder 312.34 ; Bipolar 1 disorder , depressed, moderate 296.52 ; Major depression, chronic 296.20 ; No condition on [place] II V71.09 and No condition on axis III V71.09 [address] [place] [address] 41401- 3564 Oct, Major depressive disorder, recurrent episode, moderate 296.32 ; Anxiety state 300.00 ; Cognitive decline 294.9 and No condition on [place] II V71.09 [address] [address]- 2431 Oct, [place] [id number] [place] [address] 28077- 8452 04 Oct, 2014 Major depressive disorder, recurrent episode, moderate 296.32 ; Anxiety disorder, unspecified 300.00 and Persistent disorder of initiating or maintaining sleep 307.42 [place] [id number] [address]- 5159 September, Diabetes with other specified manifestations, type II or unspecified type, not stated as uncontrolled 250.80 ; Memory loss 780.93 and Cognitive complaints 799.59 [facility] [address] 5506 September, No condition on [place] II V71.09 ; Major depression, recurrent 296.30 and Persistent mood [affective] disorder, unspecified 296.90 [facility] [address] [address]- 9083 Aug, [facility] [id number] [place] [address] 87217- 7411 Aug, [facility] [id number] 8022 Aug, [facility] [address] [address]- 0104 Jul, [facility] [address] 8634 Jul, [facility] [address] 6565 Jul, [facility] [address] 2383 Jul, [facility] [address] [address]- 6456 Jul, [facility] [address], [place] [address]- 2448 Jun, [facility] [address], [place] [address]- 1636 Jun, [facility] [address] 2836 Jun, [facility] [address], [place] [address]- 0597 Jun, [facility] [place] [facility] [address] [id number] [place] [address]- 1838 Jun, 2014 [facility] [place] [facility] [address] [id number] [place] [address]- 8265 Jun, 2014 [facility] [place] [facility] [address] [id number] [place] [address]- 5618 Jun, 2014 [facility] [place] [facility] [address] [id number] [place] [address]- 7677 Jun, 2014 [facility] [place] [facility] [address] [id number] [place] [address]- 8387 Jun, 2014 [facility] [place] [facility] [address] [id number] [place] [address]- 7140 Jun, 2014 [facility] [place] [facility] [address] [facility] [id number] [place] [address]- 0123 Jun, 2014 [facility] [place] [facility] [address] [facility] [id number] [place] [address]- 7875 Jun, 2014 [facility] [place] [facility] [address] [facility] [id number] [place] [address]- 6396 Jun, 2014 [facility] [place] [facility] [address] [facility] [id number] [place] [address]- 4473 May, [facility] [place] [facility] [address] [facility] [id number] [place] [address]- 2489 May, [facility] [place] [facility] [address] [id number] [place] [address]- 3708 Apr, [facility] [place] [facility] [address] [id number] [place] [address]- 7806 Apr, [facility] [place] [facility] [address] [facility] [id number] [place] [address]- 0030 Apr, [facility] [place] [facility] [address] [facility] [id number] [place] [address]- 9497 Apr, [facility] [place] [facility] [address] [id number] [place] [address]- 4192 Apr, [facility] [address] [id number] [place] [address]- 5306 Apr, [facility] [address] [id number] [place] [address]- 7316 Apr, [facility] [address] [id number] [place] [address]- 9616 Apr, [facility] [address] [id number] [place] [address]- 7473 Apr, [facility] [address] [id number] [place] [address]- 7082 Apr, [facility] [address] [id number] [place] [address]- 2249 Apr, [facility] [address] [id number] [place] [address]- 3691 Apr, [facility] [address] [id number] [place] [address]- 8421 Apr, [facility] [address] [id number] [place] [address]- 7494 Apr, [facility] [address] [id number] [place] [address]- 4687 Apr, [facility] [place] [facility] [address] [id number] [place] [address]- 9882 Apr, [facility] [address] [id number] [place] [address]- 9900 Apr, [facility] [place] [facility] [address] [id number] [place] [address]- 2102 Apr, [facility] [place] [facility] [address] [id number] [place] [address]- 9992 Apr, [facility] [place] [facility] [address] [id number] [place] 4235 Apr, [facility] [place] [facility] [address] [id number] [place] [address]- 8833 Mar, [facility] [place] [facility] [address] [id number] [place] [address]- 1101 Mar, [facility] [place] [facility] [address] [id number] [place] [address]- 3734 Mar, [facility] [place] [facility] [address] [id number] [place] [address]- 2525 Mar, [facility] [place] [facility] [address] [id number] [place] [address]- 0433 Mar, [facility] [place] [facility] [address] [id number] [place] [address]- 0356 Mar, [facility] [place] [facility] [address] [id number] [place] [address]- 2339 Mar, [facility] [place] [facility] [address] [id number], [place] [address]- 0412 Mar, [facility] [place] [facility] [address] [id number] [place] [address]- 1888 Mar, [facility] [place] [facility] [address] [id number], [place] [address]- 7814 Mar, [facility] [place] [facility] [address] [id number], [place] [address]- 4624 Mar, [facility] [place] [facility] [address] [id number], [place] [address]- 7705 Mar, [facility] [place] [facility] [address] [id number], [place] [address]- 0138 Mar, [facility] [place] [facility] [address] [id number], [place] [address]- 8828 Feb, [facility] [place] [facility] [address] [id number], [place] [address]- 8264 Feb, [facility] [place] [facility] [address] [id number], [place] [address]- 2864 Feb, [facility] [place] [facility] [address] [id number] [place] [address]- 7133 Feb, [facility] [place] [facility] [address] [id number] [place] [address]- 2235 Feb, [facility] [place] [facility] [address] [id number] [place] [address]- 0613 Feb, [facility] [place] [facility] [address] [id number] [place] [address]- 4119 Feb, [facility] [place] [facility] [address] [id number] [place] [address]- 2780 Feb, [facility] [place] [facility] [address] [id number] [place] [address]- 2128 Feb, [facility] [place] [facility] [address] [id number] [place] [address]- 2504 Feb, [facility] [place] [facility] [address] [id number] [place] [address]- 9557 Feb, [facility] [place] [facility] [address] [id number] [place] [address]- 3002 Feb, [facility] [place] [facility] [address] [id number] [place] [address]- 0739 10 Feb, 2014 [facility] [place] [facility] [address] [id number], [place] [address]- 2976 07 Feb, 2014 [facility] [place] [facility] [address] [id number], [place] [address]- 3563 07 Feb, 2014 [facility] [place] [facility] [address] [id number] [place] [address]- 7635 10 Jan, 2014 [facility] [place] [facility] [address] [id number] [place] [address]- 0813 08 Jan, 2013 [facility] [place] [facility] [address] [facility] [id number] [place] [address]- 0697 08 Jan, 2013 [facility] [place] [facility] [address] [id number] [place] [address]- 3140 Jan, [facility] [place] [facility] [address] [id number] [place] [address]- 5114 Jan, [facility] [place] [facility] [address] [id number] [place] [address]- 1175 Dec, [facility] [place] [facility] [address] [id number] [place] [address]- 8223 Dec, [facility] [place] [facility] [address] [id number] [place] [address]- 4815 Dec, [facility] [place] [facility] [address] [id number] [place] [address]- 3113 Dec, [facility] [place] [facility] [address] [id number] [place] [address]- 4023 Nov, [facility] [place] [facility] [address] [id number] [place] [address]- 4091 Nov, [facility] [place] [facility] [address] [id number] [place] [address]- 2221 Nov, [facility] [place] [facility] [address] [id number] [place] [address]- 2017 Nov, [facility] [place] [facility] [address] [id number] [place] [address]- 6079 Nov, [facility] [place] [facility] [address] [id number] [place] [address]- 1816 Nov, [facility] [place] [facility] [address] [id number] [place] [address]- 2644 Nov, [facility] [place] [facility] [address] [id number] [place] [address]- 2709 Nov, [facility] [place] [facility] [address] [id number] [place] [address]- 1376 Nov, [facility] [place] [facility] [address] [id number] [place] [address]- 2486 Nov, [facility] [place] [facility] [address] [id number] [place] [address]- 4250 Oct, [facility] [place] [facility] [address] [id number] [place] [address]- 1399 Oct, [facility] [place] [facility] [address] [id number] [place] [address]- 7515 September, [facility] [place] [facility] [address] [id number] [place] [address]- 6525 September, [facility] [place] [facility] [address] [id number] [place] [address]- 9996 September, [facility] [place] [facility] [address] [id number] [place] [address]- 2825 September, [facility] [place] [facility] [address] [id number] [place] [address]- 5576 Aug, [facility] [place] [facility] [address] [id number] [place] [address]- 6036 Aug, [facility] [place] [facility] [address] [id number] [place] [address]- 2335 Aug, [facility] [place] [facility] [address] [id number] [place] [address]- 1895 Jul, [facility] [place] [facility] [address] [id number] [place] [address]- 5869 24 Jul, 2013 [facility] [place] [facility] [address] [id number] [place] [address]- 4134 Jul, [facility] [place] [facility] [address] [id number] [place] [address]- 5705 Jul, [facility] [place] [facility] [address] [id number] [place] [address]- 6382 May, [facility] [place] [facility] [address] [id number] [place] [address]- 7227 May, [facility] [place] [facility] [address] [id number] [place] [address]- 9530 17 May, 2013 [facility] [address] [id number] [place] [address]- 4637 15 Mar, 2013 [facility] [place] [facility] [address] [id number] [place] [address]- 2172 15 Mar, 2013 [facility] [place] [facility] [address] [id number] [place] [address]- 2021 Mar, [facility] [place] [facility] [address] [id number] [place] [address]- 9322 Mar, [facility] [place] [facility] [address] [id number] [place] [address]- 4995 16 Feb, 2013 [facility] [place] [facility] [address] [id number] [place] [address]- 2254 16 Feb, 2013 [facility] [place] [facility] [address] [id number] [place] [address]- 1808 04 Feb, 2013 [facility] [place] [facility] [address] [id number] [place] [address]- 1395 16 Jan, 2013 [facility] [place] [facility] [address] [id number] [place] [address]- 7410 12 Jan, 2013 [facility] [place] [facility] [address] [id number] [place] [address]- 5216 Jan, [facility] [place] [facility] [address] [id number] [place] [address]- 6253 Dec, [facility] [place] [facility] [address] [id number] [place] [address]- 0926 Dec, [facility] [place] [facility] [address] [id number] [place] [address]- 5926 Dec, [facility] [place] [facility] [address] [id number] [place] [address]- 3441 Dec, [facility] [place] [facility] [address] [id number] [place] [address]- 6802 Nov, [facility] [place] [facility] [address] [id number] [place] [address]- 3139 Oct, [facility] [address] [id number] [place] [address]- 1553 Oct, [facility] [address] [id number] [place] [address]- 9293 September, [facility] [address] [id number] [place] [address]- 3828 September, [facility] [address] [id number] [place] [address]- 2776 September, [facility] [address] [id number] [place] [address]- 9370 Aug, [facility] [address] [id number] [place] [address]- 1399 Aug, [facility] [address] [id number] [place] [address]- 1854 Aug, [facility] [address] [id number] [place] [address]- 6515 Aug, [facility] [address] [id number] [place] [address]- 1739 Jul, [facility] [address] [id number] [place] [address]- 5583 Jul, [facility] [address] [id number] [place] [address]- 6324 21 Jul, 2012 [facility] [address] [id number] [place] [address]- 4217 15 Jul, 2012 [facility] [place] [facility] [address] [id number] [place] [address]- 4225 14 Jul, 2012 [facility] [place] [facility] [address] [id number] [place] [address]- 0070 13 Jul, 2012 [facility] [place] [facility] [address] [id number] [place] [address]- 0687 Jul, [facility] [address] [id number] [place] [address]- 3130 Jun, [facility] [address] [id number] [place] [address]- 3046 Jun, [facility] [address] [facility] [id number] [place] [address]- 2115 Jun, [facility] [address] [id number] [place] [address]- 4907 Jun, [facility] [address] [id number] [place] [address] May, [facility] [address] [id number] [place] [address] May, [facility] [address] [facility] [id number] [place] [address] May, [facility] [address] [facility] [id number] [place] [address] May, [facility] [address] [facility] [id number] [place] [address] May, [facility] [address] [facility] [id number] [place] [address] Apr, [facility] [address] [facility] [id number] [place] [address] Apr, [facility] [place] [facility] [address] [id number] [place] [address] Mar, [facility] [place] [facility] [address] [id number] [place] [address] Mar, [facility] [place] [facility] [address] [facility] [id number] [place] [address] Mar, [facility] [place] [facility] [address] [facility] [id number] [place] [address] Mar, [facility] [place] [facility] [address] [id number] [place] [address] 1414 Mar, [facility] [place] [facility] [address] [id number] [place] [address] Mar, [facility] [place] [facility] [address] [id number] [place] [address] Mar, [facility] [place] [facility] [address] [id number] [place] [address] Mar, [facility] [place] [facility] [address] [id number] [place] [address] Mar, [facility] [place] [facility] [address] [id number] [place] [address] 47[address] Mar, [facility] [place] [facility] [address] [id number] [place] [address] Feb, [facility] [place] [facility] [address] [id number] [place] [address] Feb, [facility] [place] [facility] [address] [id number] [place] [address] Feb, [facility] [place] [facility] [address] [id number] [place] [address] Feb, [facility] [place] [facility] [address] [facility] [id number] [place] [address] Feb, [facility] [place] [facility] [address] [id number] [place] [address] Feb, [facility] [place] [facility] [address] [id number] [place] [address] Feb, [facility] [place] [facility] [address] [id number] [place] [address] Jan, [facility] [place] [facility] [address] [id number] [place] [address] 2546 Jan, [facility] [place] [facility] [address] [id number] [place] [address] Dec, [facility] [place] [facility] [address] [id number] [place] [address] Dec, [facility] [place] [facility] [address] [id number] [place] [address] Dec, [facility] [place] [facility] [address] [id number] [place] [address] Dec, [facility] [place] [facility] [address] [id number] [place] [address] 130[address] Dec, [facility] [place] [facility] [address] [id number] [place] [address] Dec, [facility] [place] [facility] [address] [id number] [place] [address] Nov, [facility] [place] [facility] [address] [id number] [place] [address] Nov, [facility] [place] [facility] [address] [id number] [place] [address] Nov, [facility] [place] [facility] [address] [id number] [place] [address] Nov, [facility] [place] [facility] [address] [id number] [place] [address] September, [facility] [place] [facility] [address] [id number] [place] [address]- 1746 September, [facility] [place] [facility] [address] [id number] [place] [address] September, [facility] [place] [facility] [address] [id number] [place] [address] 04[address] Jul, [facility] [place] [facility] [address] [id number] [place] [address] 6[address] Jun, [facility] [place] [facility] [address] [id number] [place] [address] Jun, [facility] [place] [facility] [address] [id number] [address] 13 Jun, 2011 [facility] [id number] [address] 14 Apr, 2011 [facility] [id number], [place] [address] Mar, [facility] [id number], [place] [address] Mar, [facility] [id number], [place] [address] Feb, [facility] [id number] [place] [address] Feb, [facility] [id number], [place] [address] Feb, [facility] [id number], [place] [address] Jul, [facility] [id number] [address] Feb, IMMUNIZATIONS No Known Immunizations SOCIAL HISTORY Never Assessed REASON FOR VISIT Refill request PLAN OF CARE VITAL SIGNS MEDICATIONS Medication Instructions Dosage Frequency Start Date End Date Duration Status Loratadine 10 MG TAKE ONE TABLET BY MOUTH ONCE DAILY 90 days Active RESULTS No Results PROCEDURES No [...]
--- OUTSIDE RECORDS SUMMARY | 2018-05-09 22:25 | XMS REPORT ---
Author Author MACY TAMAYO [facility] Address [address] [place] [address] Care Team Providers Care Service Writer Name Role Phone MACY TAMAYO Unavailable PROBLEMS Type Condition ICD9-CM Code DNC46-PZ Code Onset Dates Condition Status SNOMED Code Problem Dermatomyositis M33.90 Active 738684773 Problem Lumbago with sciatica, right side M54.41 Active 401328124 Problem Morbid (severe) obesity due to excess calories E66.01 Active 263409202 Problem Diabetes with other specified manifestations, type II or unspecified type, not stated as uncontrolled 250.80 Active 078023779 Problem Osteoarthritis of right knee, unspecified osteoarthritis type M17.9 Active 075847493 Problem Hypertension, unspecified type I10 Active 00200168 Problem Menopause Z78.0 Active 683521610 Problem Diabetes type 2, controlled E11.9 Active 32272581 Problem Facial droop R29.810 Active 46363495 Problem Gait disturbance R26.9 Active 23291562 Problem Other specified mental disorders due to known physiological condition F06.8 Active 30422891 Problem Frequent falls R29.6 Active 130800854 Problem Plantar warts B07.0 Active 15565243 Problem Arthritis M19.90 Active 5953692 Problem Anxiety F41.9 Active 61470664 Problem Other chronic pain G89.29 Active 18397671 Problem Controlled type 2 diabetes mellitus without complication, without long -term current use of insulin E11.9 Active 402481890 Problem Body mass index (BMI) of 45.0-49.9 in adult Z68.42 Active 095220102 Problem Allergic rhinitis due to pollen J30.1 Active 16398774 Problem Plantar wart of both feet B07.0 Active [id number] Problem Tachycardia with heart rate 121-140 beats per minute R00.0 Active 4469157 Problem Mood disorder F39 Active 66939565 Problem Lumbago with sciatica, left side M54.42 Active 575039592 Problem Enlarged thyroid gland E04.9 Active 4669259 ALLERGIES No Information ENCOUNTERS Encounter Location Date Diagnosis [facility] [id number] [place] [address] 17666- 9635 May, [facility] [id number] [place] [address] 72524- 4747 Apr, [facility] [id number] [place] [address] 98222- 6651 Apr, [facility] [id number] [place] [address] 01618- 8799 Mar, [facility] [id number] [place] [address] 08867- 2408 Mar, [facility] [id number] [place] [address] 96972- 5259 Mar, [facility] [id number] [place] [address] 37299- 5533 Mar, BMI 45.0-49.9, adult Z68.42 [facility] [id number] [place] [address] 38445- 2685 Mar, [facility] [id number] [place] [address] 94950- 4179 Mar, BMI 45.0-49.9, adult Z68.42 ; Lupus erythematosus L93.0 and Dermatomyositis M33.90 [facility] [id number] [place] [address] 37437- 9550 Mar, Pain in right knee M25.561 and Other chronic pain G89.29 [facility] [id number] [place] [address] 83968 -1369 Mar, Vaginal itching N89.8 ; Urinary tract infection, site not specified N39.0 ; Hematuria, unspecified R31.9 and Vaginal arabella B37.3 [facility] [id number] [place] [address] 41887- 8273 Mar, Mood disorder F39 [place] [id number] [place] [address] 23276- 9825 Feb, BMI 40.0-44.9, adult Z68.41 ; Diabetes type 2, controlled E11.9 ; Osteoarthritis of right knee, unspecified osteoarthritis type M17.9 ; Dermatomyositis M33.90 ; Hypertension, unspecified type I10 and Fatigue, unspecified type R53.83 [place] [id number] [place] [address] 56770- 1411 Feb, [facility] [id number] [place] [address] 20239- 3498 Feb, BMI 45.0-49.9, adult Z68.42 [facility] [place] [id number] [place] [address] 92841- 4408 Feb, Mood disorder F39 [place] [id number] [place] [address] 01508- 8693 Feb, [facility] [id number] [place] [address] 63137- 1887 Feb, Mood disorder F39 [place] [id number] [place] [address] 41306- 7689 Feb, Other chronic pain G89.29 ; Anxiety F41.9 and Diabetes with other specified manifestations, type II or unspecified type, not stated as uncontrolled 250.80 [place] [id number] [place] [address] 47217- 8416 Feb, BMI 40.0-44.9, adult Z68.41 [place] [id number] [place] [address] 40829- 1081 Feb, Pain in right knee M25.561 and Other chronic pain G89.29 [place] [id number] [place] [address] 17260- 2570 Feb, [place] [id number] [place] [address] 61524- 4844 Feb, BMI 45.0-49.9, adult Z68.42 ; Gait disturbance R26.9 ; Other specified mental disorders due to known physiological condition F06.8 ; Weakness R53.1 ; Frequent falls R29.6 and Self-care deficit for bathing R46.0 [facility] [id number] [place] [address] 48077- 8465 Feb, Pain in right knee M25.561 and Other chronic pain G89.29 [facility] [address] 45705- 9639 Jan, Mood disorder F39 [place] [address] 30239- 2513 Jan, BMI 45.0-49.9, adult Z68.42 and 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 [place] [address] 29782- 9857 Jan, [facility] [address] 18097- 0261 Jan, [facility] [address] 63452- 2515 Jan, [facility] [address] 45928- 1524 Jan, 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 [facility] [address] 56570- 7657 Jan, [facility] [address] 64698- 6413 Jan, [facility] [address] 45536- 6833 Jan, [facility] [address] 53842- 6131 Jan, Allergic reaction to drug, initial encounter T78.40XA [facility] [address] 04659- 7258 17 Jan, 2018 BMI 45.0-49.9, adult Z68.42 and Facial droop R29.810 [place] [id number] [place] [address] 57962- 8420 14 Jan, 2018 Mood disorder F39 [place] [address] 98892- 2939 11 Jan, 2018 Dermatomyositis M33.90 and BMI 40.0-44.9, adult Z68.41 [place] [address] 10169- 2045 10 Jan, 2018 [place] [address] 25500- 5928 05 Jan, 2018 [place] [address] 70207- 2668 04 Jan, 2018 Irritation of left eye H57.8 and BMI 40.0-44.9, adult Z68.41 [place] [address] 61224- 7518 Dec, Diabetes type 2, controlled E11.9 [place] [address] 39669- 5729 Dec, Acute right ankle pain M25.571 [place] [address] 53768- 1818 Dec, Other chronic pain G89.29 ; Diabetes type 2, controlled E11.9 ; Gait disturbance R26.9 ; Weakness R53.1 and Muscle spasm M62.838 [place] [id number] [place] [address] 07812- 3792 Dec, Acute non-recurrent maxillary sinusitis J01.00 [place] [id number] [place] [address] 33958- 6978 Dec, [place] [address] 90972- 4561 Dec, [facility] [id number] [place] [address] 48284- 7091 Dec, Acute non-recurrent maxillary sinusitis J01.00 [facility] [id number] [place] [address] 92058- 2409 Dec, Lumbago with sciatica, right side M54.41 and Lupus erythematosus L93.0 [facility] [id number] [place] [address] 99969- 7598 Dec, Mood disorder F39 [facility] [id number] [place] [address] 89545- 2604 Dec, Mood disorder F39 [facility] [id number] [place] [address] 96343- 9041 Dec, [facility] [id number] [place] [address] 06405- 5613 Dec, Acute right ankle pain M25.571 [facility] [id number] [place] [address] 67342- 9155 Nov, Lumbar radiculopathy M54.16 [facility] [id number] [place] [address] 36420- 3228 Nov, [facility] [id number] [place] [address] 17060- 9709 Nov, Mood disorder F39 [facility] [id number] [place] [address] 76973- 8250 Nov, Lumbago with sciatica, right side M54.41 and Other chronic pain G89.29 [facility] [address] 02755- 9158 Nov, Acute right ankle pain M25.571 [facility] [id number] [place] [address] 18527- 2148 Nov, [facility] [address] 26725- 3593 Oct, [facility] [id number] [place] [address] 66020- 8993 Oct, Plantar wart of both feet B07.0 [facility] [id number] [place] [address] 80154- 0389 Oct, [facility] [id number] [place] [address] 25133- 3386 Oct, Acute right ankle pain M25.571 and Plantar wart of both feet B07.0 [facility] [id number] [place] [address] 64720- 9440 September, Other chronic pain G89.29 [facility] [id number] [place] [address] 93337- 9538 September, Other chronic pain G89.29 [facility] [id number] [place] [address] 32160- 8216 September, Other chronic pain G89.29 [facility] [id number] [place] [address] 85633- 1269 Aug, Mood disorder F39 [place] [id number] [place] [address] 35062- 9625 Aug, Other chronic pain G89.29 ; Controlled type 2 diabetes mellitus without complication, without long-term current use of insulin E11.9 ; Low back pain M54.5 and Tinea corporis B35.4 [facility] [id number] [place] [address] 21069- 9988 Aug, Mood disorder F39 and Anxiety F41.9 [place] [address] 91499- 2577 Aug, Mood disorder F39 and Anxiety F41.9 [facility] [id number] [place] [address] 51357- 5948 Jul, [facility] [id number] [place] [address] 05628 -1695 13 Jul, 2017 Scabies B86 and BMI 45.0-49.9, adult Z68.42 [place] [id number] [place] [address] 57740- 5497 Jul, [place] [id number] [place] [address] 65530- 4595 Jul, Mood disorder F39 and Anxiety F41.9 [place] [id number] [place] [address] 63718- 4877 Jul, [facility] [place] [address] 96699 -2828 27 Jun, 2017 Bronchitis J40 ; Dark urine R82.99 and BMI 45.0-49.9, adult Z68.42 [place] [id number] [place] [address] 46311- 8232 14 Jun, 2017 Acute pain of right shoulder M25.511 and Acute pain of right knee M25.561 [place] [id number] [place] [address] 93580- 9718 May, BMI 40.0-44.9, adult Z68.41 ; Controlled type 2 diabetes mellitus without complication, without long-term current use of insulin E11.9 ; Muscle cramping R25.2 ; Hot flashes R23.2 ; Mood disorder F39 ; Anxiety F41.9 and Morbid (severe) obesity due to excess calories E66.01 [place] [id number] [place] [address] 33206- 7301 May, BMI 40.0-44.9, adult Z68.41 ; Controlled type 2 diabetes mellitus without complication, without long-term current use of insulin E11.9 ; Muscle cramping R25.2 and Hot flashes R23.2 [place] [id number] [place] [address] 44044- 6178 May, Tachycardia with heart rate 121-140 beats per minute R00.0 ; Morbid (severe) obesity due to excess calories E66.01 ; Diabetes type 2, controlled E11.9 and Enlarged thyroid gland E04.9 [place] [address] 58028- 8049 25 May, 2017 Encounter for well woman [...] Dysuria R30.0 and Screening breast examination Z12.31 [place] [address] 30985- 2422 Apr, Mood disorder F39 ; Other chronic pain G89.29 and Anxiety F41.9 [place] [address] 62092- 3561 Apr, Lumbago with sciatica, left side M54.42 and Other chronic pain G89.29 [place] [address] 30067- 4264 Apr, Lupus erythematosus L93.0 [place] [address] 81865- 3419 Mar, Plantar wart of both feet B07.0 [place] [address] 01916- 1449 Mar, Lupus erythematosus L93.0 and Sinus drainage J34.89 [place] [address] 16589- 1401 Mar, Mood disorder F39 ; Other chronic pain G89.29 and Anxiety F41.9 [place] [address] 95433- 9217 Mar, Mood disorder F39 ; Arthritis M19.90 and Plantar warts B07.0 [place] [id number] [place] [address] 48830- 6361 Feb, Lupus erythematosus L93.0 [facility] [id number] [place] [address] 49626- 2996 Feb, Other chronic pain G89.29 [place] [id number] [place] [address] 81238- 5237 Feb, Mood disorder F39 and Anxiety F41.9 [place] [id number] [place] [address] 95574- 4305 Jan, [place] [address] 82892- 1447 Jan, Mood disorder F39 [place] [id number] [place] [address] 30105- 1938 Dec, Nail, ingrown L60.0 [place] [id number] [place] [address] 92848- 3661 Dec, Nail, ingrown L60.0 [place] [id number] [place] [address] 43352- 0064 Nov, Mood disorder F39 and Anxiety F41.9 [place] [id number] [place] [address] 15226- 0313 Nov, Sinus drainage J34.89 ; Hot flashes R23.2 ; Anxiety F41.9 and Diabetes type 2, controlled E11.9 [place] [id number] [place] [address] 93461- 2585 Nov, Nail, ingrown L60.0 [place] [id number] [place] [address] 20223- 9244 Oct, Anxiety F41.9 and Mood disorder F39 [place] [id number] [place] [address] 26408- 8613 Oct, Nail, ingrown L60.0 and Anxiety F41.9 [place] [address] [address]- 6230 Oct, Lupus erythematosus L93.0 [facility] [id number] [place] [address] 15708- 9605 September, [facility] [id number] [place] [address] 21676- 0872 September, [facility] [id number] [place] [address] 86478- 8381 September, Lupus erythematosus L93.0 [facility] [id number] [place] [address] 73885- 3004 Aug, [facility] [id number] [place] [address] 48689- 8179 Aug, Mood disorder F39 and Anxiety F41.9 [facility] [id number] [place] [address] 40764- 6192 Aug, Lupus erythematosus L93.0 ; Diabetes type 2, controlled E11.9 and Localized edema R60.0 [facility] [id number] [place] [address] 37511- 1977 Aug, [facility] [id number] [place] [address] 74891- 7685 Jul, Anxiety F41.9 and Mood disorder F39 [facility] [id number] [place] [address] 79176- 9489 Jul, Diabetes type 2, controlled E11.9 [facility] [id number] [place] [address] 63942- 8034 Jun, Anxiety F41.9 [facility] [id number] [place] [address] 48714- 1291 May, [facility] [id number] [place] [address] 93749- 2238 May, [facility] [id number] [place] [address] 45832- 4255 May, Nausea R11.0 ; Other chronic pain G89.29 and Pain in right knee M25.561 [place] [address] 37319- 2466 May, [place] [id number] [place] [address] 74130- 6702 Apr, Tear of medial meniscus of right knee, current, unspecified tear type, subsequent encounter S83.241D and Tear of lateral meniscus of right knee, current, unspecified tear type, subsequent encounter S83.281D [place] [id number] [place] [address] 54746- 3945 Apr, Anxiety F41.9 and Mood disorder F39 [place] [id number] [place] [address] 04792- 5392 Apr, Anxiety F41.9 [place] [address] 17157- 2254 Apr, [place] [id number] [place] [address] 59695- 6171 Mar, [place] [id number] [place] [address] 32875- 8189 Mar, Lupus erythematosus L93.0 and Diabetes type 2, controlled E11.9 [place] [id number] [place] [address] 78233- 1125 Mar, Mood disorder F39 [place] [id number] [place] [address] 04572- 4023 Mar, Tear of lateral meniscus of right knee, current, unspecified tear type, initial encounter S83.281A and Osteoarthritis of right knee, unspecified osteoarthritis type M17.9 [facility] [id number] [place] [address] 42084- 0264 02 Mar, 2016 [place] [id number] [place] [address] 19409- 4459 Feb, Mood disorder F39 [facility] [id number] [address]- 4500 Feb, Rash R21 [facility] [id number] [place] [address] 59801- 5376 Feb, [facility] [id number] [place] [address] 63371- 7163 Jan, Other chronic pain G89.29 and Muscle spasm M62.838 [facility] [id number] [place] [address] 52484- 8672 Jan, Mood disorder F39 [facility] [id number] [place] [address] 93049- 5202 Jan, Pain in right knee M25.561 ; Other chronic pain G89.29 and Muscle spasm M62.838 [facility] [id number] [place] [address] 13254- 4839 Dec, [facility] [id number] [place] [address] 35255- 9069 Dec, [facility] [id number] [place] [address] 30865- 8776 Nov, [facility] [id number] [place] [address] 54460- 9514 Nov, Mood disorder F39 [facility] [id number] [place] [address] 35609- 8193 Nov, Diabetes type 2, controlled E11.9 ; Bronchitis J40 ; Edema, unspecified type R60.9 ; Weight gain R63.5 and Right knee pain, unspecified chronicity M25.561 [facility] [id number] [place] [address] 96163- 5663 Oct, Mood disorder F39 [facility] [id number] [address]- 4494 Oct, Lupus erythematosus L93.0 and Bilateral edema of lower extremity R60.0 [facility] [id number] [place] [address] 06990- 2996 16 Oct, 2015 Mood disorder F39 and Anxiety F41.9 [facility] [id number] [place] [address] 88086- 2235 September, Mood disorder F39 ; Anxiety F41.9 and Anger reaction R45.4 [place] [address] 85437- 3668 September, Diabetes type 2, controlled E11.9 ; Edema, unspecified type R60.9 and Fatigue, unspecified type R53.83 [place] [address] 44174- 2707 Aug, Mood disorder F39 and Generalized anxiety disorder F41.1 [place] [address] 32178- 0466 Aug, Diabetes type 2, controlled E11.9 ; Sinusitis J32.9 and Mood disorder F39 [place] [id number] [place] [address] 09722- 4441 Aug, Lupus erythematosus L93.0 [place] [id number] [place] [address] 41355- 3608 Aug, [place] [id number] [place] [address] 32910- 5977 Aug, [place] [id number] [place] [address] 26197- 1053 Jul, Diabetes type 2, controlled E11.9 [facility] [id number] [place] [address] 66349- 6424 Jul, Mood disorder F39 and Depression F32.9 [facility] [id number] [place] [address] 04374- 3384 Jul, Lupus erythematosus L93.0 and Diabetes type 2, controlled E11.9 [facility] [address] 43406- 7990 Jul, Mood disorder F39 and Anxiety F41.9 [facility] [id number] [address]- 4276 Jul, [facility] [id number] [place] [address] 29378- [phone] Jul, [facility] [id number] [place] [address]- [address] Jun, Mood disorder F39 and Anxiety F41.9 [facility] [id number] [place] [address]- [address] Jun, Mood disorder F39 [facility] [id number] [place] [phone]- [phone] 18 Jun, 2015 [facility] [id number] [place] [address] [phone]- [phone] Jun, [facility] [id number] [place] [address] 728[address]- [address] Jun, Mood disorder F39 [facility] [id number] [place] [address] 0[address]- [address] Jun, [facility] [id number] [place] [address] [phone]- [phone] May, [facility] [id number] [address] May, [facility] [id number] [place] [phone]- [phone] May, [facility] [id number] [place] [address] 03498- 20[address] May, [facility] [id number] [place] [address] 17809- 2766 May, Anxiety F41.9 ; Dermatomyositis M33.90 and Diabetes type 2, controlled E11.9 [facility] [id number] [place] [phone] May, 2016 Sinusitis J32.9 and Cough R05 [facility] [id number] [place] [address] 472[address]- 4237 May, Mood disorder F39 [facility] [facility] [id number] [place] [address] 53217- 5900 May, Adjustment disorder with mixed anxiety and depressed mood F43.23 [facility] [address] 15918- 5286 Apr, [facility] [id number] [place] [address] 63238- 1827 Apr, [facility] [id number] [place] [address] 04643- 0888 Apr, Generalized anxiety disorder F41.1 and Mood disorder F39 [facility] [address] 65641- 6377 Mar, [facility] [id number] [place] [address] 10924- 5046 Mar, [facility] [address] 20418- 9996 Mar, [facility] [id number] [place] [address] 86409- 4872 Mar, Mood disorder F39 [facility] [id number] [place] [address] 19044- 7058 Feb, [facility] [id number] [place] [address] 26860- 0529 Feb, Diabetes E11.9 and Bronchitis J40 [facility] [id number] [place] [address] 84029- 8688 Feb, [facility] [id number] [place] [address] 76123- 7354 Feb, [facility] [id number] [place] [address] 92553- 3372 Feb, Major depression, recurrent, full remission F33.42 and KELLY ( generalized anxiety disorder) F41.1 [facility] [id number] [place] [address] 47888- 3880 Feb, [facility] [id number] [place] [address] 37644- 2541 Feb, Single major depressive episode, in partial or unspecified remission F32.5 [facility] [id number] [place] [address] 97837- 7024 Jan, Fatigue 780.[address] 38289- 3069 Jan, [facility] [id number] [place] [address] 47740- 2874 Jan, Diabetes with other specified manifestations, type II or unspecified type, not stated as uncontrolled 250.80 [facility] [id number] [place] [address] 22059- 2226 Jan, [facility] [id number] [place] [address] 15797- 5136 Dec, Hot flashes 627.2 ; Memory loss 780.93 and Joint pain 719.40 [id number] [place] [address] 96550- 2412 Dec, Major depression, recurrent 296.30 ; Generalized anxiety disorder 300.02 ; Adjustment disorder with depressed mood 309.0 and No condition on [place] II V71.09 [facility] [id number] [place] [address] 46657- 5071 Dec, [id number] [place] [address] 48978- 4185 Nov, Cognitive and neurobehavioral dysfunction 294.9 ; Major depressive disorder, recurrent episode, moderate degree 296.32 and Anxiety state , unspecified 300.00 [id number] [place] [address] 15895- 3897 Nov, [address] [id number] [address]- 3567 Nov, Bronchitis 490 and Diabetes with other specified manifestations, type II or unspecified type, not stated as uncontrolled 250.80 [id number] [place] [address] 89960- 9278 Nov, Major depressive disorder, recurrent episode, moderate 296.32 and Anxiety disorder, unspecified 300.00 [id number] [place] [address] 35652- 3541 Nov, Anxiety, generalized 300.02 ; Intermittent explosive disorder 312.34 ; No condition on [place] II V71.09 and No condition on axis III V71.09 [id number] [place] [address] 04039- 5639 Oct, Diabetes with other specified manifestations, type II or unspecified type, not stated as uncontrolled 250.80 ; Urinary tract infection, site not specified 599.0 and Bronchitis [id number] [place] [address] 25372- 6534 Oct, Intermittent explosive disorder 312.34 ; Bipolar 1 disorder , depressed, moderate 296.52 ; Major depression, chronic 296.20 ; No condition on [place] II V71.09 and No condition on axis III V71.[id number] [place] [address] 16707- 7160 Oct, Major depressive disorder, recurrent episode, moderate 296.32 ; Anxiety state 300.00 ; Cognitive decline 294.9 and No condition on [place] II V71.09 [address] [address]- 8559 Oct, [id number] [place] [address] 30392- 7477 04 Oct, 2014 Major depressive disorder, recurrent episode, moderate 296.32 ; Anxiety disorder, unspecified 300.00 and Persistent disorder of initiating or maintaining sleep 307.42 [id number] [address]- 1684 September, Diabetes with other specified manifestations, type II or unspecified type, not stated as uncontrolled 250.80 ; Memory loss 780.93 and Cognitive complaints 799.59 [facility] [address] 1429 September, No condition on [place] II V71.09 ; Major depression, recurrent 296.30 and Persistent mood [affective] disorder, unspecified 296.90 [facility] [id number] [address] Aug, [facility] [id number] [place] [address] 87240- 4012 Aug, [facility] [id number] 9149 Aug, [facility] [id number] [address]- 2012 Jul, [facility] [id number] 9232 Jul, [facility] [id number] 0625 Jul, [facility] [id number] 0488 Jul, [facility] [id number] [address]- 0326 Jul, [facility] [id number], [place] [address]- 5853 Jun, [facility] [id number] [address]- 4356 Jun, [facility] [id number] 2766 Jun, [facility] [id number] [address]- 6890 Jun, [facility] [place] [facility] [address] [id number] [place] [address]- 3402 Jun, 2014 [facility] [place] [facility] [address] [id number] [place] [address]- 7619 Jun, 2014 [facility] [place] [facility] [address] [id number] [place] [address]- 7123 Jun, 2014 [facility] [place] [facility] [address] [id number] [place] [address]- 0830 Jun, 2014 [facility] [place] [facility] [address] [id number] [place] [address]- 9498 Jun, 2014 [facility] [place] [facility] [address] [id number] [place] [address]- 9741 Jun, 2014 [facility] [place] [facility] [address] [facility] [id number] [place] [address]- 0103 Jun, 2014 [facility] [place] [facility] [address] [facility] [id number] [place] [address]- 6022 Jun, 2014 [facility] [place] [facility] [address] [facility] [id number] [place] [address]- 7223 Jun, 2014 [facility] [place] [facility] [address] [facility] [id number] [place] [address]- 4120 May, [facility] [place] [facility] [address] [facility] [id number] [place] [address]- 7012 May, [facility] [place] [facility] [address] [id number] [place] [address]- 5335 Apr, [facility] [place] [facility] [address] [id number] [place] [address]- 6286 Apr, [facility] [place] [facility] [address] [facility] [id number] [place] [address]- 9927 Apr, [facility] [place] [facility] [address] [facility] [id number] [place] [address]- 6179 Apr, [facility] [place] [facility] [address] [id number] [place] [address]- 1544 Apr, [facility] [address] [id number] [place] [address]- 3956 Apr, [facility] [address] [id number] [place] [address]- 4386 Apr, [facility] [address] [id number] [place] [address]- 5986 Apr, [facility] [address] [id number] [place] [address]- 6673 Apr, [facility] [address] [id number] [place] [address]- 0555 Apr, [facility] [address] [id number] [place] [address]- 3876 Apr, [facility] [address] [id number] [place] [address]- 9781 Apr, [facility] [address] [id number] [place] [address]- 1616 Apr, [facility] [address] [id number] [place] [address]- 5838 Apr, [facility] [address] [id number] [place] [address]- 3619 Apr, [facility] [place] [facility] [address] [id number] [place] [address]- 5039 Apr, [facility] [address] [id number] [place] [address]- 2114 Apr, [facility] [place] [facility] [address] [id number] [place] [address]- 4143 Apr, [facility] [place] [facility] [address] [id number] [place] [address]- 5854 Apr, [facility] [place] [facility] [address] [id number] [place] 8035 Apr, [facility] [place] [facility] [address] [id number] [place] [address]- 5702 Mar, [facility] [place] [facility] [address] [id number] [place] [address]- 1518 Mar, [facility] [place] [facility] [address] [id number] [place] [address]- 7817 Mar, [facility] [place] [facility] [address] [id number] [place] [address]- 0884 Mar, [facility] [place] [facility] [address] [id number] [place] [address]- 2778 Mar, [facility] [place] [facility] [address] [id number] [place] [address]- 8305 Mar, [facility] [place] [facility] [address] [id number] [place] [address]- 1965 Mar, [facility] [place] [facility] [address] [id number] [address]- 3352 Mar, [facility] [place] [facility] [address] [id number] [place] [address]- 5466 Mar, [facility] [place] [facility] [address] [id number], [place] [address]- 9304 Mar, [facility] [place] [facility] [address] [id number], [place] [address]- 0366 Mar, [facility] [place] [facility] [address] [id number], [place] [address]- 6142 Mar, [facility] [place] [facility] [address] [id number], [place] [address]- 5501 Mar, [facility] [place] [facility] [address] [id number], [place] [address]- 1647 Feb, [facility] [place] [facility] [address] [id number], [place] [address]- 8857 Feb, [facility] [place] [facility] [address] [id number] [address]- 6104 Feb, [facility] [place] [facility] [address] [id number] [place] [address]- 1760 Feb, [facility] [place] [facility] [address] [id number] [place] [address]- 2849 Feb, [facility] [place] [facility] [address] [id number] [place] [address]- 6640 Feb, [facility] [place] [facility] [address] [id number] [place] [address]- 7501 Feb, [facility] [place] [facility] [address] [id number] [place] [address]- 3303 Feb, [facility] [place] [facility] [address] [id number] [place] [address]- 9365 Feb, [facility] [place] [facility] [address] [id number] [place] [address]- 9682 Feb, [facility] [place] [facility] [address] [id number] [place] [address]- 9693 Feb, [facility] [place] [facility] [address] [id number] [place] [address]- 6285 Feb, [facility] [place] [facility] [address] [id number] [place] [address]- 8882 10 Feb, 2014 [facility] [place] [facility] [address] [id number], [place] [address]- 9720 07 Feb, 2014 [facility] [place] [facility] [address] [id number], [place] [address]- 4466 07 Feb, 2014 [facility] [place] [facility] [address] [id number] [place] [address]- 8806 10 Jan, 2014 [facility] [place] [facility] [address] [id number] [place] [address]- 0337 08 Jan, 2013 [facility] [place] [facility] [address] [facility] [id number] [place] [address]- 9529 08 Jan, 2013 [facility] [place] [facility] [address] [id number] [place] [address]- 8760 Jan, [facility] [place] [facility] [address] [id number] [place] [address]- 7056 Jan, [facility] [place] [facility] [address] [id number] [place] [address]- 5606 Dec, [facility] [place] [facility] [address] [id number] [place] [address]- 1926 Dec, [facility] [place] [facility] [address] [id number] [place] [address]- 6579 Dec, [facility] [place] [facility] [address] [id number] [place] [address]- 6918 Dec, [facility] [place] [facility] [address] [id number] [place] [address]- 5472 Nov, [facility] [place] [facility] [address] [id number] [place] [address]- 7964 Nov, [facility] [place] [facility] [address] [id number] [place] [address]- 4602 Nov, [facility] [place] [facility] [address] [id number] [place] [address]- 7588 Nov, [facility] [place] [facility] [address] [id number] [place] [address]- 5288 Nov, [facility] [place] [facility] [address] [id number] [place] [address]- 5923 Nov, [facility] [place] [facility] [address] [id number] [place] [address]- 6832 Nov, [facility] [place] [facility] [address] [id number] [place] [address]- 5847 Nov, [facility] [place] [facility] [address] [id number] [place] [address]- 5626 Nov, [facility] [place] [facility] [address] [id number] [place] [address]- 0918 Nov, [facility] [place] [facility] [address] [id number] [place] [address]- 9287 Oct, [facility] [place] [facility] [address] [id number] [place] [address]- 9635 Oct, [facility] [place] [facility] [address] [id number] [place] [address]- 0986 September, [facility] [place] [facility] [address] [id number] [place] [address]- 7144 September, [facility] [place] [facility] [address] [id number] [place] [address]- 6034 September, [facility] [place] [facility] [address] [id number] [place] [address]- 5429 September, [facility] [place] [facility] [address] [id number] [place] [address]- 5260 Aug, [facility] [place] [facility] [address] [id number] [place] [address]- 9836 Aug, [facility] [place] [facility] [address] [id number] [place] [address]- 1691 Aug, [facility] [place] [facility] [address] [id number] [place] [address]- 5460 Jul, [facility] [place] [facility] [address] [id number] [place] [address]- 8453 24 Jul, 2013 [facility] [place] [facility] [address] [id number] [place] [address]- 8428 Jul, [facility] [place] [facility] [address] [id number] [place] [address]- 6455 Jul, [facility] [place] [facility] [address] [id number] [place] [address]- 3416 May, [facility] [place] [facility] [address] [id number] [place] [address]- 1232 May, [facility] [place] [facility] [address] [id number] [place] [address]- 3018 17 May, 2013 [facility] [address] [id number] [place] [address]- 6807 15 Mar, 2013 [facility] [place] [facility] [address] [id number] [place] [address]- 8309 15 Mar, 2013 [facility] [place] [facility] [address] [id number] [place] [address]- 1552 Mar, [facility] [place] [facility] [address] [id number] [place] [address]- 0820 Mar, [facility] [place] [facility] [address] [id number] [place] [address]- 1418 16 Feb, 2013 [facility] [place] [facility] [address] [id number] [place] [address]- 6207 16 Feb, 2013 [facility] [place] [facility] [address] [id number] [place] [address]- 1086 04 Feb, 2013 [facility] [place] [facility] [address] [id number] [place] [address]- 5633 16 Jan, 2013 [facility] [place] [facility] [address] [id number] [place] [address]- 0666 12 Jan, 2013 [facility] [place] [facility] [address] [id number] [place] [address]- 3436 Jan, [facility] [place] [facility] [address] [id number] [place] [address]- 6447 Dec, [facility] [place] [facility] [address] [id number] [place] [address]- 7745 Dec, [facility] [place] [facility] [address] [id number] [place] [address]- 5926 Dec, [facility] [place] [facility] [address] [id number] [place] [address]- 8039 Dec, [facility] [place] [facility] [address] [id number] [place] [address]- 4786 Nov, [facility] [place] [facility] [address] [id number] [place] [address]- 5725 Oct, [facility] [address] [id number] [place] [address]- 4430 Oct, [facility] [address] [id number] [place] [address]- 7462 September, [facility] [address] [id number] [place] [address]- 4111 September, [facility] [address] [id number] [place] [address]- 6273 September, [facility] [address] [id number] [place] [address]- 0240 Aug, [facility] [address] [id number] [place] [address]- 6792 Aug, [facility] [address] [id number] [place] [address]- 7576 Aug, [facility] [address] [id number] [place] [address]- 6348 Aug, [facility] [address] [id number] [place] [address]- 2390 Jul, [facility] [address] [id number] [place] [address]- 0514 Jul, [facility] [address] [id number] [place] [address]- 8257 21 Jul, 2012 [facility] [address] [id number] [place] [address]- 0167 15 Jul, 2012 [facility] [place] [facility] [address] [id number] [place] [address]- 7442 14 Jul, 2012 [facility] [place] [facility] [address] [id number] [place] [address]- 3578 13 Jul, 2012 [facility] [place] [facility] [address] [id number] [place] [address]- 7490 Jul, [facility] [address] [id number] [place] [address]- 5367 Jun, [facility] [address] [id number] [place] [address]- 1226 Jun, [facility] [address] [facility] [id number] [place] [address]- 8523 Jun, [facility] [address] [id number] [place] [address]- 6800 Jun, [facility] [address] [id number] [place] [address]- 2163 May, [facility] [address] [id number] [place] [address]- 3021 May, [facility] [address] [facility] [id number] [place] [address]- 4847 May, [facility] [address] [facility] [id number] [place] [address]- 6754 May, [facility] [address] [facility] [id number] [place] [address]- 4605 May, [facility] [address] [facility] [id number] [place] [address]- 2360 Apr, [facility] [address] [facility] [id number] [place] [address]- 5573 Apr, [facility] [place] [facility] [address] [id number] [place] [address]- 5786 Mar, [facility] [place] [facility] [address] [id number] [place] [address] Mar, [facility] [place] [facility] [address] [facility] [id number] [place] [address] Mar, [facility] [place] [facility] [address] [facility] [id number] [place] [address] Mar, [facility] [place] [facility] [address] [id number] [place] [address] Mar, [facility] [place] [facility] [address] [id number] [place] [address] Mar, [facility] [place] [facility] [address] [id number] [place] [address] Mar, [facility] [place] [facility] [address] [id number] [place] [address] Mar, [facility] [place] [facility] [address] [id number] [place] [address] Mar, [facility] [place] [facility] [address] [id number] [place] [address] Mar, [facility] [place] [facility] [address] [id number] [place] [address] Feb, [facility] [place] [facility] [address] [id number] [place] [address] Feb, [facility] [place] [facility] [address] [id number] [place] [address] Feb, [facility] [place] [facility] [address] [id number] [place] [address] Feb, [facility] [place] [facility] [address] [facility] [id number] [place] [address] Feb, [facility] [place] [facility] [address] [id number] [place] [address] Feb, [facility] [place] [facility] [address] [id number] [place] [address] Feb, [facility] [place] [facility] [address] [id number] [place] [address] Jan, [facility] [place] [facility] [address] [id number] [place] [address] Jan, [facility] [place] [facility] [address] [id number] [place] [address] Dec, [facility] [place] [facility] [address] [id number] [place] [address] Dec, [facility] [place] [facility] [address] [id number] [place] [address] Dec, [facility] [place] [facility] [address] [id number] [place] [address] Dec, [facility] [place] [facility] [address] [id number] [place] [address] Dec, [facility] [place] [facility] [address] [id number] [place] [address] Dec, [facility] [place] [facility] [address] [id number] [place] [address] Nov, [facility] [place] [facility] [address] [id number] [place] [address] Nov, [facility] [place] [facility] [address] [id number] [place] [address] Nov, [facility] [place] [facility] [address] [id number] [place] [address] Nov, [facility] [place] [facility] [address] [id number] [place] [address] September, [facility] [place] [facility] [address] [id number] [place] [address] September, [facility] [place] [facility] [address] [id number] [place] [address] September, [facility] [place] [facility] [address] [id number] [place] [address] Jul, [facility] [place] [facility] [address] [id number] [place] [address] Jun, [facility] [place] [facility] [address] [id number] [place] [address] Jun, [facility] [place] [facility] [address] [id number] [address] 13 Jun, 2011 [facility] [id number] [address] Apr, [facility] [id number] [address] 28 Mar, 2011 [facility] [id number] [address] Mar, [facility] [id number] [address] [address] Feb, [facility] [id number] [place] [address] Feb, [facility] [id number] [address] Feb, [facility] [id number], [place] [address] Jul, [facility] [address] [id number] [address] 20 Feb, 2008 IMMUNIZATIONS No Known Immunizations SOCIAL HISTORY Never Assessed REASON FOR VISIT Referral Change PLAN OF CARE VITAL SIGNS MEDICATIONS Unknown [...]
--- OUTSIDE RECORDS SUMMARY | 2018-05-09 22:26 | XMS REPORT ---
Author Author MACY TAMAYO [facility] Address [address] [place] [address] Care Team Providers Care Ship'S Master Name Role Phone MACY TAMAYO Unavailable PROBLEMS Type Condition ICD9-CM Code [id number] Code Onset Dates Condition Status SNOMED Code Problem Dermatomyositis M33.90 Active 391895098 Problem Lumbago with sciatica, right side M54.41 Active 072161538 Problem Morbid (severe) obesity due to excess calories E66.01 Active 552321897 Problem Diabetes with other specified manifestations, type II or unspecified type, not stated as uncontrolled 250.80 Active 803525109 Problem Osteoarthritis of right knee, unspecified osteoarthritis type M17.9 Active 894284448 Problem Hypertension, unspecified type I10 Active 12916934 Problem Menopause Z78.0 Active 239972860 Problem Diabetes type 2, controlled E11.9 Active 94641005 Problem Facial droop R29.810 Active 56796127 Problem Gait disturbance R26.9 Active 09323363 Problem Other specified mental disorders due to known physiological condition F06.8 Active 27378898 Problem Frequent falls R29.6 Active 458926377 Problem Plantar warts B07.0 Active 96805862 Problem Arthritis M19.90 Active 4896043 Problem Anxiety F41.9 Active 91046101 Problem Other chronic pain G89.29 Active 97466224 Problem Controlled type 2 diabetes mellitus without complication, without long -term current use of insulin E11.9 Active 690067326 Problem Body mass index (BMI) of 45.0-49.9 in adult Z68.42 Active 398278769 Problem Allergic rhinitis due to pollen J30.1 Active 95270470 Problem Plantar wart of both feet B07.0 Active [id number] Problem Tachycardia with heart rate 121-140 beats per minute R00.0 Active 0395079 Problem Mood disorder F39 Active 87074725 Problem Lumbago with sciatica, left side M54.42 Active 158618579 Problem Enlarged thyroid gland E04.9 Active 9509420 ALLERGIES No Information ENCOUNTERS Encounter Location Date Diagnosis [facility], [place] [id number] [place] [address] 61936- 0270 May, [facility], [place] [id number] [place] [address] 11479- 7296 Apr, [facility], [place] [address] 67228- 9701 Apr, [facility], [place] [id number] [place] [address] 74593- 2892 Mar, [facility], [place] [address] 22070- 2365 Mar, BMI 45.0-49.9, adult Z68.42 [place] [address] 25843- 7342 Mar, [facility], [place] [address] 98221- 5349 Mar, BMI 45.0-49.9, adult Z68.42 ; Lupus erythematosus L93.0 and Dermatomyositis M33.90 [place] [id number] [place] [address] 03486- 8725 Mar, Pain in right knee M25.561 and Other chronic pain G89.29 [facility] [id number] [place] [address] 97500 -5362 Mar, Vaginal itching N89.8 ; Urinary tract infection, site not specified N39.0 ; Hematuria, unspecified R31.9 and Vaginal arabella B37.3 [facility], [place] [id number] [place] [address] 54874- 4749 Mar, Mood disorder F39 [facility], [place] [id number] [place] [address] 55643- 4111 Feb, BMI 40.0-44.9, adult Z68.41 ; Diabetes type 2, controlled E11.9 ; Osteoarthritis of right knee, unspecified osteoarthritis type M17.9 ; Dermatomyositis M33.90 ; Hypertension, unspecified type I10 and Fatigue, unspecified type R53.83 [place] [id number] [place] [address] 57989- 4107 Feb, [place] [id number] [place] [address] 87727- 8243 Feb, BMI 45.0-49.9, adult Z68.42 [place] [id number] [place] [address] 28129- 8019 Feb, Mood disorder F39 [place] [id number] [place] [address] 60303- 8736 Feb, [place] [id number] [place] [address] 85401- 3528 Feb, Mood disorder F39 [place] [id number] [place] [address] 07053- 0459 Feb, Other chronic pain G89.29 ; Anxiety F41.9 and Diabetes with other specified manifestations, type II or unspecified type, not stated as uncontrolled 250.80 [place] [id number] [place] [address] 82432- 2742 Feb, BMI 40.0-44.9, adult Z68.41 [place] [id number] [place] [address] 29791- 0875 Feb, Pain in right knee M25.561 and Other chronic pain G89.29 [place] [id number] [place] [address] 76285- 6116 Feb, [place] [id number] [place] [address] 46068- 5655 03 Feb, 2018 BMI 45.0-49.9, adult Z68.42 ; Gait disturbance R26.9 ; Other specified mental disorders due to known physiological condition F06.8 ; Weakness R53.1 ; Frequent falls R29.6 and Self-care deficit for bathing R46.0 [facility], [place] [id number] [place] [address] 62246- 7675 03 Feb, 2018 Pain in right knee M25.561 and Other chronic pain G89.29 [facility], [place] [address] 62208- 0511 28 Jan, 2018 Mood disorder F39 [facility], [place] [address] 45164- 9904 27 Jan, 2018 BMI 45.0-49.9, adult Z68.42 and 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 [facility], [place] [address] 42623- 9700 25 Jan, 2018 [facility], [place] [address] 59168- 9958 24 Jan, 2018 [facility], [place] [address] 26303- 7549 Jan, [facility], [place] [address] 30011- 4213 21 Jan, 2018 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 [facility], [place] [address] 98766- 9810 21 Jan, 2018 [facility], [place] [id number] [place] [address] 71737- 4241 Jan, [facility], [place] [id number] [place] [address] 36990- 9823 Jan, [facility], [place] [id number] [place] [address] 50754- 9431 19 Jan, 2018 Allergic reaction to drug, initial encounter T78.40XA [facility], [place] [address] 59082- 0077 17 Jan, 2018 BMI 45.0-49.9, adult Z68.42 and Facial droop R29.810 [facility], [place] [address] 57002- 5831 14 Jan, 2018 Mood disorder F39 [place] [id number] [place] [address] 78884- 0120 11 Jan, 2018 Dermatomyositis M33.90 and BMI 40.0-44.9, adult Z68.41 [place] [id number] [place] [address] 26463- 2462 10 Jan, 2018 [place] [address] 94913- 7944 05 Jan, 2018 [place] [address] 20061- 0541 04 Jan, 2018 Irritation of left eye H57.8 and BMI 40.0-44.9, adult Z68.41 [place] [id number] [place] [address] 45375- 7843 31 Dec, 2017 Diabetes type 2, controlled E11.9 [place] [address] 99797- 6727 Dec, Acute right ankle pain M25.571 [place] [address] 90681- 0433 Dec, Other chronic pain G89.29 ; Diabetes type 2, controlled E11.9 ; Gait disturbance R26.9 ; Weakness R53.1 and Muscle spasm M62.838 [place] [id number] [place] [address] 03077- 6163 Dec, Acute non-recurrent maxillary sinusitis J01.00 [place] [id number] [place] [address] 55745- 7765 Dec, [place] [address] 85872- 9381 Dec, [place] [id number] [place] [address] 86356- 6727 Dec, Acute non-recurrent maxillary sinusitis J01.00 [place] [address] 81217- 5942 Dec, Lumbago with sciatica, right side M54.41 and Lupus erythematosus L93.0 [facility], [place] [id number] [place] [address] 58730- 5874 Dec, Mood disorder F39 [facility], [place] [id number] [place] [address] 58266- 5020 Dec, Mood disorder F39 [facility], [place] [id number] [place] [address] 41001- 5122 Dec, [facility], [place] [id number] [place] [address] 92743- 4487 Dec, Acute right ankle pain M25.571 [facility], [place] [id number] [place] [address] 75865- 2159 Nov, Lumbar radiculopathy M54.16 [facility], [place] [id number] [place] [address] 04443- 1865 Nov, [facility], [place] [id number] [place] [address] 48068- 1189 Nov, Mood disorder F39 [facility], [place] [id number] [place] [address] 60293- 5227 Nov, Lumbago with sciatica, right side M54.41 and Other chronic pain G89.29 [facility], [place] [id number] [place] [address] 38982- 3438 Nov, Acute right ankle pain M25.571 [facility], [place] [id number] [place] [address] 55788- 9588 Nov, [facility], [place] [id number] [place] [address] 41309- 2980 Oct, [facility], [place] [id number] [place] [address] 45853- 3467 Oct, Plantar wart of both feet B07.0 [facility], [place] [address] [place] [address]- 0495 Oct, [place] [address] 59292- 8114 Oct, Acute right ankle pain M25.571 and Plantar wart of both feet B07.0 [place] [address] 15702- 1725 September, Other chronic pain G89.29 [place] [address] 62686- 3600 September, Other chronic pain G89.29 [place] [address] 29571- 7353 September, Other chronic pain G89.29 [place] [address] 11626- 3548 Aug, Mood disorder F39 [place] [address] 10916- 6968 Aug, Other chronic pain G89.29 ; Controlled type 2 diabetes mellitus without complication, without long-term current use of insulin E11.9 ; Low back pain M54.5 and Tinea corporis B35.4 [place] [address] 62832- 9757 Aug, Mood disorder F39 and Anxiety F41.9 [place] [address] 43877- 3111 Aug, Mood disorder F39 and Anxiety F41.9 [place] [address] 02524- 8702 Jul, [facility] [address] 13020 -8793 Jul, Scabies B86 and BMI 45.0-49.9, adult Z68.42 [place] [address] 39934- 9641 Jul, [facility], [place] [id number] [place] [address] 20966- 3031 Jul, Mood disorder F39 and Anxiety F41.9 [place] [id number] [place] [address] 42452- 6909 Jul, [facility] [id number] [place] [address] 68381 -4289 Jun, Bronchitis J40 ; Dark urine R82.99 and BMI 45.0-49.9, adult Z68.42 [place] [id number] [place] [address] 31371- 3399 14 Jun, 2017 Acute pain of right shoulder M25.511 and Acute pain of right knee M25.561 [place] [id number] [place] [address] 57338- 5699 May, BMI 40.0-44.9, adult Z68.41 ; Controlled type 2 diabetes mellitus without complication, without long-term current use of insulin E11.9 ; Muscle cramping R25.2 ; Hot flashes R23.2 ; Mood disorder F39 ; Anxiety F41.9 and Morbid (severe) obesity due to excess calories E66.01 [place] [id number] [place] [address] 19694- 1780 May, BMI 40.0-44.9, adult Z68.41 ; Controlled type 2 diabetes mellitus without complication, without long-term current use of insulin E11.9 ; Muscle cramping R25.2 and Hot flashes R23.2 [place] [id number] [place] [address] 57447- 0589 May, Tachycardia with heart rate 121-140 beats per minute R00.0 ; Morbid (severe) obesity due to excess calories E66.01 ; Diabetes type 2, controlled E11.9 and Enlarged thyroid gland E04.9 [place] [id number] [place] [address] 75799- 7633 May, Encounter for well woman exam with [...] Dysuria R30.0 and Screening breast examination Z12.31 [place] [address] 52988- 7233 Apr, Mood disorder F39 ; Other chronic pain G89.29 and Anxiety F41.9 [place] [address] 45261- 7391 Apr, Lumbago with sciatica, left side M54.42 and Other chronic pain G89.29 [place] [address] 44831- 4603 Apr, Lupus erythematosus L93.0 [place] [address] 82561- 7261 Mar, Plantar wart of both feet B07.0 [place] [address] 46150- 3789 Mar, Lupus erythematosus L93.0 and Sinus drainage J34.89 [place] [id number] [place] [address] 74912- 2419 Mar, Mood disorder F39 ; Other chronic pain G89.29 and Anxiety F41.9 [place] [id number] [place] [address] 15003- 4513 Mar, Mood disorder F39 ; Arthritis M19.90 and Plantar warts B07.0 [place] [id number] [place] [address] 11018- 9436 Feb, Lupus erythematosus L93.0 [place] [address] 25426- 3486 Feb, Other chronic pain G89.29 [facility], [place] [id number] [place] [address] 06746- 1502 Feb, Mood disorder F39 and Anxiety F41.9 [facility], [place] [id number] [place] [address] 01263- 4969 Jan, [place] [id number] [place] [address] 90499- 7506 Jan, Mood disorder F39 [place] [id number] [place] [address] 85875- 7777 Dec, Nail, ingrown L60.0 [place] [id number] [place] [address] 22468- 9575 Dec, Nail, ingrown L60.0 [place] [id number] [place] [address] 84293- 5537 Nov, Mood disorder F39 and Anxiety F41.9 [place] [id number] [place] [address] 92388- 8393 Nov, Sinus drainage J34.89 ; Hot flashes R23.2 ; Anxiety F41.9 and Diabetes type 2, controlled E11.9 [place] [id number] [place] [address] 80720- 8581 Nov, Nail, ingrown L60.0 [place] [id number] [place] [address] 46041- 1751 Oct, Anxiety F41.9 and Mood disorder F39 [place] [address] [place] [address] 02748- 9340 Oct, Nail, ingrown L60.0 and Anxiety F41.9 [place] [id number] [place] [address] 73944- 5740 Oct, Lupus erythematosus L93.0 [place] [id number] [place] [address] 98499- 0136 September, [facility], [place] [id number] [place] [address] 03228- 6707 September, [facility], [place] [id number] [place] [address] 84031- 9432 September, Lupus erythematosus L93.0 [facility], [place] [id number] [place] [address] 04354- 3453 Aug, [facility], [place] [address] 04080- 5434 Aug, Mood disorder F39 and Anxiety F41.9 [facility], [place] [id number] [place] [address] 19922- 9903 Aug, Lupus erythematosus L93.0 ; Diabetes type 2, controlled E11.9 and Localized edema R60.0 [facility], [place] [id number] [place] [address] 77040- 9420 Aug, [facility], [place] [id number] [place] [address] 85474- 7795 Jul, Anxiety F41.9 and Mood disorder F39 [facility], [place] [id number] [place] [address] 74870- 1563 Jul, Diabetes type 2, controlled E11.9 [facility], [place] [id number] [place] [address] 33727- 0773 Jun, Anxiety F41.9 [facility], [place] [id number] [place] [address] 58795- 2660 May, [facility], [place] [id number] [place] [address] 95581- 7592 May, [facility], [place] [id number] [place] [address] 23953- 3803 May, Nausea R11.0 ; Other chronic pain G89.29 and Pain in right knee M25.561 [facility], [place] [id number] [place] [address] 33165- 2389 May, [facility], [place] [address] [place] [address] 36449- 0291 Apr, Tear of medial meniscus of right knee, current, unspecified tear type, subsequent encounter S83.241D and Tear of lateral meniscus of right knee, current, unspecified tear type, subsequent encounter S83.281D [facility], [place] [id number] [place] [address] 32267- 2028 Apr, Anxiety F41.9 and Mood disorder F39 [place] [id number] [place] [address] 76865- 9182 Apr, Anxiety F41.9 [place] [address] 87089- 2492 Apr, [place] [id number] [place] [address] 82276- 5998 Mar, [place] [id number] [place] [address] 34379- 4857 Mar, Lupus erythematosus L93.0 and Diabetes type 2, controlled E11.9 [place] [id number] [place] [address] 09795- 8974 Mar, Mood disorder F39 [place] [id number] [place] [address] 11526- 5251 Mar, Tear of lateral meniscus of right knee, current, unspecified tear type, initial encounter S83.281A and Osteoarthritis of right knee, unspecified osteoarthritis type M17.9 [place] [id number] [place] [address] 06689- 6627 Mar, [place] [id number] [place] [address] 71362- 8117 Feb, Mood disorder F39 [facility], [place] [id number] [place] [address] 47313- 4527 Feb, Rash R21 [facility], [place] [id number] [place] [address] 33396- 7141 Feb, [facility], [place] [address] [place] [address] 75410- 2980 Jan, Other chronic pain G89.29 and Muscle spasm M62.838 [facility], [place] [id number] [place] [address] 96671- 7809 Jan, Mood disorder F39 [facility], [place] [id number] [place] [address] 76160- 9121 Jan, Pain in right knee M25.561 ; Other chronic pain G89.29 and Muscle spasm M62.838 [facility], [place] [id number] [place] [address] 97871- 4932 Dec, [facility], [place] [id number] [place] [address] 33794- 0409 Dec, [facility], [place] [id number] [place] [address] 45291- 4952 Nov, [facility], [place] [id number] [place] [address] 48135- 3036 Nov, Mood disorder F39 [facility], [place] [id number] [place] [address] 02216- 8252 Nov, Diabetes type 2, controlled E11.9 ; Bronchitis J40 ; Edema, unspecified type R60.9 ; Weight gain R63.5 and Right knee pain, unspecified chronicity M25.561 [facility], [place] [id number] [place] [address] 15509- 4513 Oct, Mood disorder F39 [facility], [place] [id number] [place] [address] 43575- 3834 Oct, Lupus erythematosus L93.0 and Bilateral edema of lower extremity R60.0 [facility], [place] [id number] [place] [address] 67862- 0763 Oct, Mood disorder F39 and Anxiety F41.9 [facility], [place] [id number] [place] [address] 04521- 1646 September, Mood disorder F39 ; Anxiety F41.9 and Anger reaction R45.4 [facility], [place] [id number] [place] [address] 99513- 1602 September, Diabetes type 2, controlled E11.9 ; Edema, unspecified type R60.9 and Fatigue, unspecified type R53.83 [facility], [place] [id number] [place] [address] 42863- 1152 Aug, Mood disorder F39 and Generalized anxiety disorder F41.1 [facility], [place] [id number] [place] [address] 31630- 0546 Aug, Diabetes type 2, controlled E11.9 ; Sinusitis J32.9 and Mood disorder F39 [facility], [place] [id number] [place] [address] 05843- 5228 Aug, Lupus erythematosus L93.0 [facility], [place] [id number] [place] [address] 23708- 9777 Aug, [facility], [place] [id number] [place] [address] 69788- 5649 Aug, [facility], [place] [id number] [place] [address] 33832- 3207 Jul, Diabetes type 2, controlled E11.9 [facility], [place] [id number] [place] [address] 33659- 3953 Jul, Mood disorder F39 and Depression F32.9 [facility], [place] [id number] [place] [address] 11817- 5606 Jul, Lupus erythematosus L93.0 and Diabetes type 2, controlled E11.9 [facility], [place] [id number] [place] [address] 27567- 2692 Jul, Mood disorder F39 and Anxiety F41.9 [facility], [place] [id number] [place] [address] [phone]- 3637 Jul, [facility], [place] [address] [address] [address] Jul, [facility], [place] [id number] [place] [address] 68874- 8269 Jun, Mood disorder F39 and Anxiety F41.9 [facility], [place] [address] [address] Jun, Mood disorder F39 [facility], [place] [id number] [place] [address] 25236- 2851 Jun, [facility], [place] [id number] [place] [address] 17008- 3867 Jun, [facility], [place] [id number] [place] [address] 88629- 7462 Jun, Mood disorder F39 [facility], [place] [id number] [place] [address] 22914- 3786 Jun, [facility], [place] [id number] [place] [address] 45258- 1473 May, [facility], [place] [id number] [place] [address] 39719- 7847 May, [facility], [place] [id number] [place] [address] 78189- 3584 May, [facility], [place] [id number] [place] [address] 11372- 0659 May, [facility], [place] [id number] [place] [address] 62752- 1783 May, Anxiety F41.9 ; Dermatomyositis M33.90 and Diabetes type 2, controlled E11.9 [facility] [address] [address] May, Sinusitis J32.9 and Cough R05 [facility], [place] [address] [address] 98[address] May, Mood disorder F39 [facility], [place] [id number] [place] [address] 04596- 1737 May, Adjustment disorder with mixed anxiety and depressed mood F43.23 [facility], [place] [id number] [place] [address] 39284- 1133 Apr, [facility], [place] [id number] [place] [address] 79732- 9662 Apr, [facility], [place] [id number] [place] [address] 06899- 8497 Apr, Generalized anxiety disorder F41.1 and Mood disorder F39 [facility], [place] [id number] [place] [address] 09776- 7782 Mar, [facility], [place] [id number] [place] [address] 88129- 4508 Mar, [facility], [place] [id number] [place] [address] 23367- 5539 Mar, [facility], [place] [id number] [place] [address] 32795- 3920 Mar, Mood disorder F39 [facility], [place] [id number] [place] [address] 94117- 0429 Feb, [facility], [place] [id number] [place] [address] 43646- 3491 Feb, Diabetes E11.9 and Bronchitis J40 [facility], [place] [id number] [place] [address] 38137- 5684 Feb, [facility], [place] [id number] [place] [address] 01375- 3547 Feb, [facility], [place] [id number] [place] [address] 29260- 6008 Feb, Major depression, recurrent, full remission F33.42 and KELLY ( generalized anxiety disorder) F41.1 [facility], [place] [id number] [place] [address] 18103- 2102 Feb, [place] [id number] [place] [address] 73429- 4581 Feb, Single major depressive episode, in partial or unspecified remission F32.5 [place] [id number] [place] [address] 00448- 7524 Jan, Fatigue 780.79 [place] [id number] [place] [address] 51611- 6726 Jan, [place] [id number] [place] [address] 59118- 7779 Jan, Diabetes with other specified manifestations, type II or unspecified type, not stated as uncontrolled 250.80 [place] [id number] [place] [address] [id number]- 8035 Jan, [place] [id number] [place] [address] 70837- 8347 Dec, Hot flashes 627.2 ; Memory loss 780.93 and Joint pain 719.40 [place] [id number] [place] [address] 75021- 6345 Dec, Major depression, recurrent 296.30 ; Generalized anxiety disorder 300.02 ; Adjustment disorder with depressed mood 309.0 and No condition on [place] II V71.09 [place] [id number] [place] [address] 41203- 1701 Dec, [place] [id number] [place] [address] 03148- 4650 Nov, Cognitive and neurobehavioral dysfunction 294.9 ; Major depressive disorder, recurrent episode, moderate degree 296.32 and Anxiety state , unspecified 300.00 [place] [id number] [place] [address] 53027- 6094 Nov, [facility], [place] [id number] [place] [address] 89245- 5028 Nov, Bronchitis 490 and Diabetes with other specified manifestations, type II or unspecified type, not stated as uncontrolled 250.80 [place] [address] [address]- 8716 Nov, Major depressive disorder, recurrent episode, moderate 296.32 and Anxiety disorder, unspecified 300.00 [place] [id number] [place] [address] 46594- 6130 Nov, Anxiety, generalized 300.02 ; Intermittent explosive disorder 312.34 ; No condition on [place] II V71.09 and No condition on axis III V71.09 [place] [id number] [place] [address] 23454- 6919 Oct, Diabetes with other specified manifestations, type II or unspecified type, not stated as uncontrolled 250.80 ; Urinary tract infection, site not specified 599.0 and Bronchitis [address] [place] [address] 29449- 1375 Oct, Intermittent explosive disorder 312.34 ; Bipolar 1 disorder , depressed, moderate 296.52 ; Major depression, chronic 296.20 ; No condition on [place] II V71.09 and No condition on axis III V71.09 [place] [id number] [place] [address] 31669- 3387 15 Oct, 2014 Major depressive disorder, recurrent episode, moderate 296.32 ; Anxiety state 300.00 ; Cognitive decline 294.9 and No condition on [place] II V71.09 [place] [address] [address]- 9082 Oct, [place] [id number] [place] [address] 24699- 0262 Oct, Major depressive disorder, recurrent episode, moderate 296.32 ; Anxiety disorder, unspecified 300.00 and Persistent disorder of initiating or maintaining sleep 307.42 [address] [place] [address] 62787- 7353 September, Diabetes with other specified manifestations, type II or unspecified type, not stated as uncontrolled 250.80 ; Memory loss 780.93 and Cognitive complaints 799.59 [place] [id number] [address]- 6711 September, No condition on [place] II V71.09 ; Major depression, recurrent 296.30 and Persistent mood [affective] disorder, unspecified 296.90 [facility], [place] [address] [address]- 7872 28 Aug, 2014 [facility], [place] [address] [address]- 2591 14 Aug, 2014 [facility] [address] [address]- 1149 Aug, [facility], [place] [address] 2599 Jul, [facility] [address] [address]- 4773 Jul, [facility], [place] [address] [address]- 7583 Jul, [facility], [place] [address] [address]- 9369 Jul, [facility], [place] [address] [address]- 6639 Jul, [facility], [place] [address] [address]- 5755 Jun, [facility], [place] [address] [address]- 5718 Jun, [facility] [address] [address]- 9752 Jun, [facility] [address] [address]- 2752 Jun, [facility] [address] [address]- 2369 Jun, [facility], [place] [address] 2966 Jun, [facility] [place] [facility] [address] [id number] [place] [address]- 9588 Jun, 2014 [facility] [place] [facility] [address] [id number] [place] [address]- 5476 Jun, 2014 [facility] [place] [facility] [address] [facility] [id number] [place] [address]- 6404 Jun, 2014 [facility] [place] [facility] [address] [id number] [place] [address]- 5497 Jun, 2014 [facility] [place] [facility] [address] [id number] [place] [address]- 6565 Jun, 2014 [facility] [place] [facility] [address] [facility] [id number] [place] [address]- 4353 Jun, 2014 [facility] [place] [facility] [address] [facility] [id number] [place] [address]- 6352 Jun, 2014 [facility] [place] [facility] [address] [facility] [id number] [place] [address]- 1869 May, [facility] [place] [facility] [address] [facility] [id number] [place] [address]- 5443 May, [facility] [place] [facility] [address] [facility] [id number] [place] [address]- 0625 Apr, [facility] [place] [facility] [address] [facility] [id number] [place] [address]- 0422 Apr, [facility] [place] [facility] [address] [facility] [id number] [place] [address]- 7943 Apr, [facility] [place] [facility] [address] [id number] [place] [address]- 6795 Apr, [facility] [place] [facility] [address] [facility] [id number] [place] [address]- 8780 Apr, [facility] [place] [facility] [address] [facility] [id number] [place] [address]- 3616 Apr, [facility] [place] [facility] [address] [id number] [place] [address]- 1247 Apr, [facility] [address] [id number] [place] [address]- 5859 Apr, [facility] [place] [facility] [address] [id number] [place] [address]- 0696 15 Apr, 2014 [facility] [address] [id number] [place] [address]- 1866 15 Apr, 2014 [facility] [place] [facility] [address] [id number] [place] [address]- 8536 Apr, [facility] [address] [id number] [place] [address]- 8765 Apr, [facility] [address] [id number] [place] [address]- 8171 Apr, [facility] [place] [facility] [address] [id number] [place] [address]- 0548 Apr, [facility] [address] [id number] [place] [address]- 7287 Apr, [facility] [place] [facility] [address] [id number] [place] [address]- 4720 Apr, [facility] [address] [id number] [place] [address]- 9241 Apr, [facility] [place] [facility] [address] [id number] [place] [address]- 5894 Apr, [facility] [place] [facility] [address] [id number] [place] 9117 Apr, [facility] [place] [facility] [address] [id number] [place] [address]- 6053 Apr, [facility] [place] [facility] [address] [id number] [place] [address]- 4986 Mar, [facility] [place] [facility] [address] [id number] [place] [address]- 7525 Mar, [facility] [place] [facility] [address] [id number] [place] [address]- 0476 Mar, [facility] [place] [facility] [address] [id number] [place] [address]- 1851 Mar, [facility] [place] [facility] [address] [id number] [place] [address]- 5167 Mar, [facility] [place] [facility] [address] [id number] [place] [address]- 7737 Mar, [facility] [place] [facility] [address] [id number] [place] [address]- 3907 Mar, [facility] [place] [facility] [address] [id number] [place] [address]- 2805 Mar, [facility] [place] [facility] [address] [id number] [place] [address]- 1033 Mar, [facility] [place] [facility] [address] [id number] [address]- 0766 Mar, [facility] [place] [facility] [address] [id number] [place] [address]- 7048 Mar, [facility] [place] [facility] [address] [facility] [id number] [address]- 8083 Mar, [facility] [place] [facility] [address] [id number] [address]- 9152 Mar, [facility] [place] [facility] [address] [id number] [address]- 3175 Feb, [facility] [place] [facility] [address] [id number] [place] [address]- 6079 Feb, [facility] [place] [facility] [address] [id number] [address]- 4199 30 Feb, 2014 [facility] [place] [facility] [address] [id number] [address]- 9984 Feb, [facility] [place] [facility] [address] [id number] [place] [address]- 0283 Feb, [facility] [place] [facility] [address] [id number] [place] [address]- 8498 Feb, [facility] [place] [facility] [address] [id number] [place] [address]- 1378 Feb, [facility] [place] [facility] [address] [id number] [place] [address]- 9867 Feb, [facility] [place] [facility] [address] [id number] [place] [address]- 9344 Feb, [facility] [place] [facility] [address] [id number] [place] [address]- 5696 Feb, [facility] [place] [facility] [address] [id number] [place] [address]- 2388 Feb, [facility] [place] [facility] [address] [id number] [place] [address]- 0622 Feb, [facility] [place] [facility] [address] [id number] [place] [address]- 5283 10 Feb, 2014 [facility] [place] [facility] [address] [facility] [id number] [place] [address]- 8608 07 Feb, 2014 [facility] [place] [facility] [address] [facility] [id number] [place] [address]- 7951 07 Feb, 2014 [facility] [place] [facility] [address] [id number] [address]- 7666 10 Jan, 2013 [facility] [place] [facility] [address] [id number] [address]- 7126 08 Sep, 2013 [facility] [place] [facility] [address] [id number] [place] [address]- 6154 08 Sep, 2013 [facility] [place] [facility] [address] [id number] [place] [address]- 1577 08 Sep, 2013 [facility] [place] [facility] [address] [facility] [id number] [place] [address]- 7316 08 Sep, 2013 [facility] [place] [facility] [address] [id number] [place] [address]- 0970 Dec, [facility] [place] [facility] [address] [id number] [place] [address]- 2782 Dec, [facility] [place] [facility] [address] [id number] [place] [address] 2546 Dec, [facility] [place] [facility] [address] [id number] [place] [address]- 2771 Dec, [facility] [place] [facility] [address] [id number] [place] [address]- 3873 Nov, [facility] [place] [facility] [address] [id number] [place] [address]- 6072 Nov, [facility] [place] [facility] [address] [id number] [place] [address]- 7409 Nov, [facility] [place] [facility] [address] [id number] [place] [address]- 1144 Nov, [facility] [place] [facility] [address] [id number] [place] [address]- 0677 Nov, [facility] [place] [facility] [address] [id number] [place] [address]- 3654 Nov, [facility] [place] [facility] [address] [id number] [place] [address]- 5318 Nov, [facility] [place] [facility] [address] [id number] [place] [address]- 6200 Nov, [facility] [place] [facility] [address] [id number] [place] [address]- 3089 Nov, [facility] [place] [facility] [address] [id number] [place] [address]- 0440 Nov, [facility] [place] [facility] [address] [id number] [place] [address]- 9716 Oct, [facility] [place] [facility] [address] [id number] [place] [address]- 9862 Oct, [facility] [place] [facility] [address] [id number] [place] [address]- 9612 September, [facility] [place] [facility] [address] [id number] [place] [address]- 2180 September, [facility] [place] [facility] [address] [id number] [place] [address]- 1180 September, [facility] [place] [facility] [address] [id number] [place] [address]- 4446 September, [facility] [place] [facility] [address] [id number] [place] [address]- 7350 Aug, [facility] [place] [facility] [address] [id number] [place] [address]- 2500 Aug, [facility] [place] [facility] [address] [id number] [place] [address]- 4663 Aug, [facility] [place] [facility] [address] [id number] [place] [address]- 5093 Jul, [facility] [place] [facility] [address] [id number] [place] [address]- 4542 24 Jul, 2013 [facility] [place] [facility] [address] [id number] [place] [address]- 6245 Jul, [facility] [place] [facility] [address] [id number] [place] [address]- 9345 Jul, [facility] [place] [facility] [address] [id number] [place] [address]- 9615 May, [facility] [place] [facility] [address] [id number] [place] [address]- 3952 May, [facility] [place] [facility] [address] [id number] [place] [address]- 3659 May, [facility] [place] [facility] [address] [id number] [place] [address]- 8974 Mar, [facility] [place] [facility] [address] [id number] [place] [address]- 5008 15 Mar, 2013 [facility] [address] [id number] [place] [address]- 8066 Mar, [facility] [place] [facility] [address] [id number] [place] [address]- 1207 Mar, [facility] [place] [facility] [address] [id number] [place] [address]- 7987 16 Feb, 2013 [facility] [place] [facility] [address] [id number] [place] [address]- 2380 16 Feb, 2013 [facility] [place] [facility] [address] [id number] [place] [address]- 6122 Feb, [facility] [place] [facility] [address] [id number] [place] [address]- 1649 16 Jan, 2013 [facility] [place] [facility] [address] [id number] [place] [address]- 4481 Jan, [facility] [place] [facility] [address] [id number] [place] [address]- 2766 Jan, [facility] [place] [facility] [address] [id number] [place] [address]- 7906 Dec, [facility] [place] [facility] [address] [id number] [place] [address]- 5782 Dec, [facility] [place] [facility] [address] [id number] [place] [address]- 7775 Dec, [facility] [place] [facility] [address] [id number] [place] [address]- 9126 Dec, [facility] [place] [facility] [address] [id number] [place] [address]- 9541 Nov, [facility] [place] [facility] [address] [id number] [place] [address]- 2744 Oct, [facility] [place] [facility] [address] [id number] [place] [address]- 5521 Oct, [facility] [place] [facility] [address] [id number] [place] [address]- 1504 September, [facility] [address] [id number] [place] [address]- 0845 September, [facility] [address] [id number] [place] [address]- 1528 September, [facility] [address] [id number] [place] [address]- 9498 Aug, [facility] [address] [id number] [place] [address]- 0170 Aug, [facility] [address] [id number] [place] [address]- 5074 Aug, [facility] [address] [id number] [place] [address]- 1987 Aug, [facility] [address] [id number] [place] [address]- 0572 Jul, [facility] [address] [id number] [place] [address]- 7275 25 Jul, 2012 [facility] [address] [id number] [place] [address]- 1054 Jul, [facility] [address] [id number] [place] [address]- 9746 15 Jul, 2012 [facility] [address] [id number] [place] [address]- 0568 14 Jul, 2012 [facility] [address] [id number] [place] [address] 13 Jul, 2012 [facility] [place] [facility] [address] [id number] [place] [address] 13 Jul, 2012 [facility] [place] [facility] [address] [id number] [place] [address] 06 Jun, 2012 [facility] [address] [id number] [place] [address] Jun, [facility] [address] [id number] [place] [address] Jun, [facility] [place] [facility] [address] [id number] [place] [address] Jun, [facility] [place] [facility] [address] [facility] [id number] [place] [address] May, [facility] [place] [facility] [address] [id number] [place] [address] May, [facility] [place] [facility] [address] [id number] [place] [address] May, [facility] [place] [facility] [address] [id number] [place] [address] May, [facility] [address] [facility] [id number] [place] [address]698 May, [facility] [place] [facility] [address] [facility] [id number] [place] [address] Apr, [facility] [address] [facility] [id number] [place] [address] Apr, [facility] [place] [facility] [address] [facility] [id number] [place] [address] Mar, [facility] [place] [facility] [address] [id number] [place] [address] Mar, [facility] [place] [facility] [address] [id number] [place] [address] Mar, [facility] [place] [facility] [address] [id number] [place] [address] Mar, [facility] [place] [facility] [address] [facility] [id number] [place] [address] Mar, [facility] [place] [facility] [address] [facility] [id number] [place] [address] Mar, [facility] [place] [facility] [address] [id number] [place] [address] Mar, [facility] [place] [facility] [address] [id number] [place] [address] Mar, [facility] [place] [facility] [address] [id number] [place] [address] Mar, [facility] [place] [facility] [address] [id number] [place] [address] Mar, [facility] [place] [facility] [address] [id number] [place] [address] Feb, [facility] [place] [facility] [address] [id number] [place] [address] Feb, [facility] [place] [facility] [address] [id number] [place] [address] Feb, [facility] [place] [facility] [address] [id number] [place] [address] Feb, [facility] [place] [facility] [address] [id number] [place] [address] Feb, [facility] [place] [facility] [address] [id number] [place] [address] Feb, [facility] [place] [facility] [address] [id number] [place] [address] Feb, [facility] [place] [facility] [address] [id number] [place] [address] Jan, [facility] [place] [facility] [address] [id number] [place] [address] Jan, [facility] [place] [facility] [address] [id number] [place] [address] Dec, [facility] [place] [facility] [address] [id number] [place] [address] Dec, [facility] [place] [facility] [address] [id number] [place] [address] Dec, [facility] [place] [facility] [address] [id number] [place] [address] Dec, [facility] [place] [facility] [address] [id number] [place] [address] Dec, [facility] [place] [facility] [address] [id number] [place] [address] Dec, [facility] [place] [facility] [address] [id number] [place] [address] Nov, [facility] [place] [facility] [address] [id number] [place] [address] Nov, [facility] [place] [facility] [address] [id number] [place] [address] Nov, [facility] [place] [facility] [address] [id number] [place] [address] Nov, [facility] [place] [facility] [address] [id number] [place] [address] September, [facility] [place] [facility] [address] [id number] [place] [address] September, [facility] [place] [facility] [address] [id number] [place] [address] September, [facility] [place] [facility] [address] [id number] [place] [address] Jul, [facility] [place] [facility] [address] [id number] [place] [address] 29 Jun, 2011 [facility] [place] [facility] [address] [id number] [place] [address] Jun, [facility] [place] [facility] [address] [id number] [place] [address] Jun, [facility] [place] [facility] [address] [id number] [place] [address]- [address] Apr, [facility] [place] [facility] [address] [facility] [id number] [id number] [address] 28 Mar, 2011 [facility] [place] [address] [id number] [address] Mar, [facility] [facility] [place] [address] [id number] [address] Feb, [facility], [place] [address] [facility] [id number] [address] Feb, [facility], [place] [address] [id number] [address] Feb, [facility], [place] [address] [facility] [id number] [address] Jul, [facility], [place] [address] [id number] [address] Feb, IMMUNIZATIONS No Known Immunizations SOCIAL HISTORY Never Assessed REASON FOR VISIT Controlled Med Refill PLAN OF CARE VITAL SIGNS MEDICATIONS Medication Instructions Dosage Frequency Start Date End Date Duration Status [place] 10-325 MG Orally every 6 hrs 1 tablet as needed 6h Mar, 28 days Active RESULTS No Results PROCEDURES [...]
--- OUTSIDE RECORDS SUMMARY | 2018-05-09 22:27 | XMS REPORT ---
Author Author MACY TAMAYO [facility] Address [address] [place] [address] Care Team Providers Care Lithograph Printer Name Role Phone MACY TAMAYO Unavailable PROBLEMS Type Condition ICD9-CM Code QPV00-TY Code Onset Dates Condition Status SNOMED Code Problem Dermatomyositis M33.90 Active 353020671 Problem Lumbago with sciatica, right side M54.41 Active 536152402 Problem Morbid (severe) obesity due to excess calories E66.01 Active 102708981 Problem Diabetes with other specified manifestations, type II or unspecified type, not stated as uncontrolled 250.80 Active 071586415 Problem Osteoarthritis of right knee, unspecified osteoarthritis type M17.9 Active 003252796 Problem Hypertension, unspecified type I10 Active 48125776 Problem Menopause Z78.0 Active 639766328 Problem Diabetes type 2, controlled E11.9 Active 41354537 Problem Facial droop R29.810 Active 52353465 Problem Gait disturbance R26.9 Active 56977331 Problem Other specified mental disorders due to known physiological condition F06.8 Active 21027997 Problem Frequent falls R29.6 Active 969268006 Problem Plantar warts B07.0 Active 08338099 Problem Arthritis M19.90 Active 5060951 Problem Anxiety F41.9 Active 45329176 Problem Other chronic pain G89.29 Active 68785936 Problem Controlled type 2 diabetes mellitus without complication, without long -term current use of insulin E11.9 Active 107506117 Problem Body mass index (BMI) of 45.0-49.9 in adult Z68.42 Active 759974978 Problem Allergic rhinitis due to pollen J30.1 Active 80216181 Problem Plantar wart of both feet B07.0 Active [id number] Problem Tachycardia with heart rate 121-140 beats per minute R00.0 Active 6577426 Problem Mood disorder F39 Active 41679759 Problem Lumbago with sciatica, left side M54.42 Active 944789551 Problem Enlarged thyroid gland E04.9 Active 0894928 ALLERGIES No Information ENCOUNTERS Encounter Location Date Diagnosis [facility] [id number] [place] [address] 58863- 3123 May, [facility] [id number] [place] [address] 81593- 8917 Apr, [facility] [id number] [place] [address] 11960- 5233 Mar, [facility] [id number] [place] [address] 78324- 2725 Mar, [facility] [id number] [place] [address] 23217- 4124 Mar, BMI 45.0-49.9, adult Z68.42 ; Lupus erythematosus L93.0 and Dermatomyositis M33.90 [facility] [id number] [place] [address] 29926- 9471 Mar, Pain in right knee M25.561 and Other chronic pain G89.29 [facility] [id number] [place] [address] 76535 -9855 Mar, Vaginal itching N89.8 ; Urinary tract infection, site not specified N39.0 ; Hematuria, unspecified R31.9 and Vaginal arabella B37.3 [facility] [address] [address] 8566 Mar, Mood disorder F39 [facility] [id number] [place] [address] 17147- 5647 Feb, BMI 40.0-44.9, adult Z68.41 ; Diabetes type 2, controlled E11.9 ; Osteoarthritis of right knee, unspecified osteoarthritis type M17.9 ; Dermatomyositis M33.90 ; Hypertension, unspecified type I10 and Fatigue, unspecified type R53.83 [facility] [id number] [place] [address] 93242- 6906 Feb, [facility] [id number] [place] [address]- 6956 Feb, BMI 45.0-49.9, adult Z68.42 [facility] [id number] [place] [address] 81935- 1039 Feb, Mood disorder F39 [facility] [id number] [place] [address] 58310- 3524 Feb, [facility] [id number] [place] [address] 70564- 6034 Feb, Mood disorder F39 [facility] [id number] [place] [address] 45129- 0246 Feb, Other chronic pain G89.29 ; Anxiety F41.9 and Diabetes with other specified manifestations, type II or unspecified type, not stated as uncontrolled 250.80 [facility] [id number] [place] [address] 95537- 5561 Feb, BMI 40.0-44.9, adult Z68.41 [facility] [id number] [place] [address] 00863- 5007 Feb, Pain in right knee M25.561 and Other chronic pain G89.29 [facility] [id number] [place] [address] 64257- 9142 Feb, [facility] [id number] [place] [address] 45217- 2685 Feb, BMI 45.0-49.9, adult Z68.42 ; Gait disturbance R26.9 ; Other specified mental disorders due to known physiological condition F06.8 ; Weakness R53.1 ; Frequent falls R29.6 and Self-care deficit for bathing R46.0 [facility] [id number] [place] [address] 86935- 8105 Feb, Pain in right knee M25.561 and Other chronic pain G89.29 [facility] [id number] [place] [address] 40508- 9035 Jan, Mood disorder F39 [facility] [id number] [place] [address] 92137- 0182 27 Jan, 2017 BMI 45.0-49.9, adult Z68.42 and 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 [facility] [id number] [place] [address] 30302- 1792 25 Jan, 2018 [facility] [address] 83820- 6815 24 Jan, 2018 [facility] [id number] [place] [address] 43311- 1049 Jan, [facility] [address] 72095- 9206 Jan, 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 [facility] [id number] [place] [address] 66692- 5050 Jan, [facility] [id number] [place] [address] 30032- 7814 Jan, [facility] [id number] [place] [address] 09732- 2292 Jan, [facility] [address] 07356- 8888 19 Jan, 2018 Allergic reaction to drug, initial encounter T78.40XA [facility] [id number] [place] [address] 05825- 5301 17 Jan, 2018 BMI 45.0-49.9, adult Z68.42 and Facial droop R29.810 [facility] [id number] [place] [address] 46331- 3665 14 Jan, 2018 Mood disorder F39 [facility] [id number] [place] [address] 22747- 0177 11 Jan, 2018 Dermatomyositis M33.90 and BMI 40.0-44.9, adult Z68.41 [facility] [address] [address] 17178- 8489 10 Jan, 2018 [facility] [address] 63236- 5147 Jan, [facility] [address] 793829- 1650 04 Jan, 2018 Irritation of left eye H57.8 and BMI 40.0-44.9, adult Z68.41 [facility] [address] 20944- 8924 Dec, Diabetes type 2, controlled E11.9 [facility] [address] 10576- 9024 Dec, Acute right ankle pain M25.571 [facility] [address] 84675- 6830 Dec, Other chronic pain G89.29 ; Diabetes type 2, controlled E11.9 ; Gait disturbance R26.9 ; Weakness R53.1 and Muscle spasm M62.838 [facility] [id number] [place] [address] 05880- 0565 Dec, Acute non-recurrent maxillary sinusitis J01.00 [facility] [id number] [place] [address] 35633- 1999 Dec, [facility] [id number] [place] [address] 08172- 3803 Dec, [facility] [address] 94838- 7917 Dec, Acute non-recurrent maxillary sinusitis J01.00 [facility] [address] 17561- 0135 Dec, Lumbago with sciatica, right side M54.41 and Lupus erythematosus L93.0 [facility] [id number] [place] [address] 88932- 6349 Dec, Mood disorder F39 [facility] [id number] [place] [address] 77303- 9758 Dec, Mood disorder F39 [facility] [id number] [place] [address] 70719- 6554 Dec, [facility] [id number] [place] [address] 86657- 8461 Dec, Acute right ankle pain M25.571 [facility] [id number] [place] [address] 68429- 7495 Nov, Lumbar radiculopathy M54.16 [facility] [id number] [place] [address] 83263- 7585 Nov, [facility] [id number] [place] [address] 91023- 0646 Nov, Mood disorder F39 [facility] [id number] [place] [address] 52356- 3353 Nov, Lumbago with sciatica, right side M54.41 and Other chronic pain G89.29 [facility] [id number] [place] [address] 28539- 0276 Nov, Acute right ankle pain M25.571 [facility] [id number] [place] [address] 85848- 9338 Nov, [facility] [id number] [place] [address] 68932- 0073 Oct, [facility] [id number] [place] [address] 96875- 5118 Oct, Plantar wart of both feet B07.0 [facility] [id number] [place] [address] 43612- 4800 Oct, [facility] [id number] [place] [address] 30447- 2507 Oct, Acute right ankle pain M25.571 and Plantar wart of both feet B07.0 [facility] [id number] [place] [address] 02185- 0570 September, Other chronic pain G89.29 [facility] [address] 01416- 3631 September, Other chronic pain G89.29 [facility] [address] 40838- 3585 September, Other chronic pain G89.29 [facility] [address] 55990- 7198 Aug, Mood disorder F39 [facility] [address] 47094- 0955 Aug, Other chronic pain G89.29 ; Controlled type 2 diabetes mellitus without complication, without long-term current use of insulin E11.9 ; Low back pain M54.5 and Tinea corporis B35.4 [facility] [id number] [place] [address] 69779- 9897 Aug, Mood disorder F39 and Anxiety F41.9 [facility] [id number] [place] [address] 36428- 7643 Aug, Mood disorder F39 and Anxiety F41.9 [facility] [id number] [place] [address] 85300- 1149 Jul, [facility] [id number] [place] [address] 45357 -3530 Jul, Scabies B86 and BMI 45.0-49.9, adult Z68.42 [facility] [id number] [place] [address] 16959- 2450 Jul, [facility] [address] 00758- 6249 Jul, Mood disorder F39 and Anxiety F41.9 [facility] [id number] [place] [address] 29123- 0206 Jul, [facility] [id number] [address] 27 Jun, 2017 Bronchitis J40 ; Dark urine R82.99 and BMI 45.0-49.9, adult Z68.42 [facility] [id number] [place] [address] 45134- 5424 14 Jun, 2017 Acute pain of right shoulder M25.511 and Acute pain of right knee M25.561 [facility] [id number] [place] [address] 36929- 1946 May, BMI 40.0-44.9, adult Z68.41 ; Controlled type 2 diabetes mellitus without complication, without long-term current use of insulin E11.9 ; Muscle cramping R25.2 ; Hot flashes R23.2 ; Mood disorder F39 ; Anxiety F41.9 and Morbid (severe) obesity due to excess calories E66.01 [address] [place] [address] 27771- 3994 May, BMI 40.0-44.9, adult Z68.41 ; Controlled type 2 diabetes mellitus without complication, without long-term current use of insulin E11.9 ; Muscle cramping R25.2 and Hot flashes R23.2 [facility] [id number] [place] [address] 61613- 8250 May, Tachycardia with heart rate 121-140 beats per minute R00.0 ; Morbid (severe) obesity due to excess calories E66.01 ; Diabetes type 2, controlled E11.9 and Enlarged thyroid gland E04.9 [facility] [id number] [place] [address] 46191- 0608 May, Encounter for well woman exam with [...] Dysuria R30.0 and Screening breast examination Z12.31 [facility] [id number] [place] [address] 91639- 2327 Apr, Mood disorder F39 ; Other chronic pain G89.29 and Anxiety F41.9 [facility] [id number] [place] [address] 81461- 5394 Apr, Lumbago with sciatica, left side M54.42 and Other chronic pain G89.29 [facility] [id number] [place] [address] 66391- 2781 Apr, Lupus erythematosus L93.0 [facility] [address] 68949- 8487 Mar, Plantar wart of both feet B07.0 [facility] [address] 43921- 0020 Mar, Lupus erythematosus L93.0 and Sinus drainage J34.89 [facility] [address] 93014- 9221 Mar, Mood disorder F39 ; Other chronic pain G89.29 and Anxiety F41.9 [facility] [id number] [place] [address] 51738- 0308 Mar, Mood disorder F39 ; Arthritis M19.90 and Plantar warts B07.0 [facility] [id number] [place] [address] 13609- 3901 Feb, Lupus erythematosus L93.0 [facility] [id number] [place] [address] 55222- 6714 Feb, Other chronic pain G89.29 [facility] [id number] [place] [address] 14209- 2571 Feb, Mood disorder F39 and Anxiety F41.9 [facility] [id number] [place] [address] 70059- 9199 Jan, [facility] [address] [address]- 1701 Jan, Mood disorder F39 [facility] [id number] [place] [address] 75708- 2881 Dec, Nail, ingrown L60.0 [facility] [id number] [place] [address] 70604- 9344 Dec, Nail, ingrown L60.0 [facility] [id number] [place] [address] 53699- 5712 Nov, Mood disorder F39 and Anxiety F41.9 [facility] [id number] [place] [address] 06882- 6947 Nov, Sinus drainage J34.89 ; Hot flashes R23.2 ; Anxiety F41.9 and Diabetes type 2, controlled E11.9 [facility] [id number] [place] [address] 86419- 5492 Nov, Nail, ingrown L60.0 [facility] [id number] [place] [address] 57128- 8652 Oct, Anxiety F41.9 and Mood disorder F39 [facility] [id number] [place] [address] 47135- 9855 Oct, Nail, ingrown L60.0 and Anxiety F41.9 [facility] [id number] [place] [address] 44450- 8326 Oct, Lupus erythematosus L93.0 [facility] [id number] [place] [address] 41004- 7592 September, [facility] [id number] [place] [address] 69135- 4247 September, [facility] [id number] [place] [address] 19203- 7827 September, Lupus erythematosus L93.0 [facility] [address] [place] [address] 67462- 1567 17 Aug, 2016 [facility] [id number] [place] [address] 55469- 3666 Aug, Mood disorder F39 and Anxiety F41.9 [facility] [id number] [place] [address] 80621- 3746 Aug, Lupus erythematosus L93.0 ; Diabetes type 2, controlled E11.9 and Localized edema R60.0 [facility] [id number] [place] [address] 41257- 9638 Aug, [facility] [id number] [place] [address] 84889- 6832 Jul, Anxiety F41.9 and Mood disorder F39 [facility] [id number] [place] [address] 27214- 8740 Jul, Diabetes type 2, controlled E11.9 [facility] [id number] [place] [address] 69904- 9032 Jun, Anxiety F41.9 [facility] [id number] [place] [address] 96015- 8721 May, [facility] [id number] [place] [address] 08956- 2252 May, [place] [id number] [place] [address] 02481- 9535 May, Nausea R11.0 ; Other chronic pain G89.29 and Pain in right knee M25.561 [facility] [id number] [place] [address] 95409- 4806 May, [facility] [id number] [place] [address] 21376- 6018 Apr, Tear of medial meniscus of right knee, current, unspecified tear type, subsequent encounter S83.241D and Tear of lateral meniscus of right knee, current, unspecified tear type, subsequent encounter S83.281D [facility] [id number] [place] [address] 25175- 4349 Apr, Anxiety F41.9 and Mood disorder F39 [facility] [address] 71879- 4950 Apr, Anxiety F41.9 [facility] [address] 77972- 9961 Apr, [facility] [address] 52533- 3849 Mar, [facility] [address] 43371- 7880 Mar, Lupus erythematosus L93.0 and Diabetes type 2, controlled E11.9 [place] [address] 82773- 0285 Mar, Mood disorder F39 [facility] [address] 79249- 0574 Mar, Tear of lateral meniscus of right knee, current, unspecified tear type, initial encounter S83.281A and Osteoarthritis of right knee, unspecified osteoarthritis type M17.9 [facility] [address] 36973- 4724 Mar, [facility] [id number] [place] [address] 28432- 5391 Feb, Mood disorder F39 [facility] [id number] [place] [address] 80471- 0225 Feb, Rash R21 [facility] [address] 06648- 6410 Feb, [facility] [address] 26897- 7913 Jan, Other chronic pain G89.29 and Muscle spasm M62.838 [facility] [address] 36514- 4100 Jan, Mood disorder F39 [facility] [id number] [place] [address] 03829- 3678 Jan, Pain in right knee M25.561 ; Other chronic pain G89.29 and Muscle spasm M62.838 [facility] [address] [place] [address] 24810- 3855 Dec, [facility] [id number] [place] [address] 79663- 7450 Dec, [facility] [id number] [place] [address] 94055- 4993 Nov, [facility] [id number] [place] [address] 36382- 5703 Nov, Mood disorder F39 [facility] [id number] [place] [address] 17477- 7319 Nov, Diabetes type 2, controlled E11.9 ; Bronchitis J40 ; Edema, unspecified type R60.9 ; Weight gain R63.5 and Right knee pain, unspecified chronicity M25.561 [facility] [id number] [place] [address] 80287- 5394 Oct, Mood disorder F39 [place] [id number] [place] [address] 49950- 0379 Oct, Lupus erythematosus L93.0 and Bilateral edema of lower extremity R60.0 [facility] [id number] [place] [address] 29210- 5447 Oct, Mood disorder F39 and Anxiety F41.9 [facility] [id number] [place] [address] 10342- 1334 September, Mood disorder F39 ; Anxiety F41.9 and Anger reaction R45.4 [facility] [id number] [place] [address] 90220- 8283 September, Diabetes type 2, controlled E11.9 ; Edema, unspecified type R60.9 and Fatigue, unspecified type R53.83 [facility] [id number] [place] [address] 94484- 4396 Aug, Mood disorder F39 and Generalized anxiety disorder F41.1 [facility] [id number] [place] [address] 51223 2546 Aug, Diabetes type 2, controlled E11.9 ; Sinusitis J32.9 and Mood disorder F39 [facility] [id number] [place] [address] 94223- 1036 Aug, Lupus erythematosus L93.0 [facility] [id number] [place] [address] 90846- 5446 Aug, [facility] [id number] [place] [address] 71825- 5006 Aug, [facility] [id number] [place] [address] 59813- 8063 Jul, Diabetes type 2, controlled E11.9 [facility] [id number] [place] [address] 44407- 9681 Jul, Mood disorder F39 and Depression F32.9 [facility] [id number] [place] [address] 11843- 8243 Jul, Lupus erythematosus L93.0 and Diabetes type 2, controlled E11.9 [facility] [id number] [place] [address] 33473- 1419 Jul, Mood disorder F39 and Anxiety F41.9 [facility] [id number] [place] [address] [id number] 2546 Jul, [facility] [id number] [place] [address] [id number] 2546 Jul, [facility] [id number] [place] [address] [id number]- 4716 Jun, Mood disorder F39 and Anxiety F41.9 [facility] [id number] [address] Jun, Mood disorder F39 [facility] [id number] [place] [address] [id number]- [phone] 18 Jun, 2015 [facility] [id number] [place] [address] [id number]- [phone] Jun, [facility] [id number] [place] [address] [id number]- 2439 Jun, Mood disorder F39 [facility] [id number] [place] [address] [phone]- [phone] Jun, [facility] [id number] [place] [address] [id number]- [phone] May, [facility] [id number] [place] [address] [phone]- [phone] May, [facility] [id number] [place] [address] [phone]- [phone] May, [facility] [id number] [place] [address] [phone]- 2365 May, [facility] [id number] [place] [address] [id number]- 4604 May, Anxiety F41.9 ; Dermatomyositis M33.90 and Diabetes type 2, controlled E11.9 [facility] [id number] [place] [address] [id number] -[phone] May, Sinusitis J32.9 and Cough R05 BIG [facility] [id number] [address] May, Mood disorder F39 [facility] [id number] [place] [address] 22591- 4594 May, Adjustment disorder with mixed anxiety and depressed mood F43.23 [facility] [address], [place] [address] 44[address] Apr, [facility] [id number] [place] [address] 90283- 5827 Apr, [facility] [id number] [place] [address] 83692- 4958 Apr, Generalized anxiety disorder F41.1 and Mood disorder F39 [facility] [id number] [place] [address] 72942- 2195 Mar, [facility] [id number] [place] [address] 65139- 8670 Mar, [facility] [id number] [place] [address] 12432- 3633 Mar, [facility] [id number] [place] [address] 44606- 8408 Mar, Mood disorder F39 [facility] [id number] [place] [address] 87872- 8287 Feb, [facility] [id number] [place] [address] 77887- 5967 Feb, Diabetes E11.9 and Bronchitis J40 [facility] [id number] [place] [address] 37206- 5854 Feb, [facility] [id number] [place] [address] 45604- 1821 Feb, [facility] [id number] [place] [address] 03312- 1256 Feb, Major depression, recurrent, full remission F33.42 and KELLY ( generalized anxiety disorder) F41.1 [facility] [id number] [place] [address] 32636- 3149 Feb, [facility] [id number] [place] [address] 57147- 5946 Feb, Single major depressive episode, in partial or unspecified remission F32.5 [facility] [id number] [place] [address] 44266- 7714 Jan, Fatigue 780.79 [place] [id number] [place] [address] 46098- 0918 Jan, [place] [id number] [place] [address] 55490- 7572 Jan, Diabetes with other specified manifestations, type II or unspecified type, not stated as uncontrolled 250.[id number] [place] [address] 03315- 3728 Jan, [address] [place] [id number] [place] [address] 35108- 0684 Dec, Hot flashes 627.2 ; Memory loss 780.93 and Joint pain 719.40 [address] [place] [id number] [place] [address] 18557- 1968 Dec, Major depression, recurrent 296.30 ; Generalized anxiety disorder 300.02 ; Adjustment disorder with depressed mood 309.0 and No condition on [place] II V71.09 [address] [place] [id number] [place] [address] 80290- 8471 Dec, [address] [id number] [place] [address] 71271- 8052 Nov, Cognitive and neurobehavioral dysfunction 294.9 ; Major depressive disorder, recurrent episode, moderate degree 296.32 and Anxiety state , unspecified 300.00 [address] [place] [id number] [place] [address] 86232- 3278 Nov, [address] [id number] [place] [address] 73497- 2092 Nov, Bronchitis 490 and Diabetes with other specified manifestations, type II or unspecified type, not stated as uncontrolled 250.80 [address] [id number] [place] [address] 07401- 1441 Nov, Major depressive disorder, recurrent episode, moderate 296.32 and Anxiety disorder, unspecified 300.00 [address] [id number] [place] [address] 01224- 8126 Nov, Anxiety, generalized 300.02 ; Intermittent explosive disorder 312.34 ; No condition on [place] II V71.09 and No condition on axis III V71.09 [address] [place] [id number] [place] [address] 80350- 6485 Oct, Diabetes with other specified manifestations, type II or unspecified type, not stated as uncontrolled 250.80 ; Urinary tract infection, site not specified 599.0 and Bronchitis [id number] [place] [address] 63684- 5967 Oct, Intermittent explosive disorder 312.34 ; Bipolar 1 disorder , depressed, moderate 296.52 ; Major depression, chronic 296.20 ; No condition on [place] II V71.09 and No condition on axis III V71.09 [address] [place] [id number] [place] [address] 75176- 1341 Oct, Major depressive disorder, recurrent episode, moderate 296.32 ; Anxiety state 300.00 ; Cognitive decline 294.9 and No condition on [place] II V71.09 [address] [place] [id number] [place] [address] 70321- 7646 Oct, [place] [id number] [place] [address] 92351- 9615 Oct, Major depressive disorder, recurrent episode, moderate 296.32 ; Anxiety disorder, unspecified 300.00 and Persistent disorder of initiating or maintaining sleep 307.42 [address] [place] [id number] [place] [address] 64896- 6749 September, Diabetes with other specified manifestations, type II or unspecified type, not stated as uncontrolled 250.80 ; Memory loss 780.93 and Cognitive complaints 799.59 [address] [place] [id number] [place] [address] 10755- 5885 September, No condition on [place] II V71.09 ; Major depression, recurrent 296.30 and Persistent mood [affective] disorder, unspecified 296.90 [address] [place] [id number] [place] [address] 12617- 5443 Aug, [facility] [place] [facility] [address] [id number] [place] [address]- 3269 14 Aug, 2014 [facility] [place] [facility] [address] [id number] [place] [address]- 4718 Aug, [facility] [place] [facility] [address] [id number] [place] [address]- 3308 Jul, [facility] [place] [facility] [address] [id number] [place] [address]- 7235 Jul, [facility] [place] [facility] [address] [id number] [place] [address]- 3071 Jul, [facility] [place] [facility] [address] [id number] [place] [address]- 4934 Jul, [facility] [place] [facility] [address] [facility] [id number] [place] [address]- 8596 Jul, [facility] [place] [facility] [address] [id number] [place] [address]- 1835 Jun, 2014 [facility] [place] [facility] [address] [id number] [place] [address]- 1706 Jun, 2014 [facility] [place] [facility] [address] [facility] [id number] [place] [address]- 0703 Jun, 2014 [facility] [place] [facility] [address] [facility] [id number] [place] [address]- 2955 Jun, 2014 [facility] [place] [facility] [address] [id number] [address]- 7657 Jun, 2014 [facility] [place] [facility] [address] [id number] [place] [address]- 2424 Jun, 2014 [facility] [place] [facility] [address] [facility] [id number] [place] 1500 Jun, [facility] [place] [facility] [address] [facility] [id number] [place] [address]- 2830 Jun, 2014 [facility] [place] [facility] [address] [id number] [place] [address]- 6272 Jun, 2014 [facility] [place] [facility] [address] [id number] [place] [address]- 6909 Jun, 2014 [facility] [place] [facility] [address] [id number] [place] [address]- 2376 Jun, 2014 [facility] [place] [facility] [address] [id number] [place] [address]- 7416 Jun, 2014 [facility] [place] [facility] [address] [id number] [place] [address]- 3537 Jun, 2014 [facility] [place] [facility] [address] [id number] [place] [address]- 1930 May, [facility] [place] [facility] [address] [facility] [id number] [place] [address]- 2848 May, [facility] [place] [facility] [address] [facility] [id number] [place] [address]- 1172 Apr, [facility] [place] [facility] [address] [id number] [place] [address]- 6631 Apr, [facility] [place] [facility] [address] [facility] [id number] [place] [address]- 6558 Apr, [facility] [place] [facility] [address] [facility] [id number] [place] [address]- 8769 Apr, [facility] [place] [facility] [address] [facility] [id number] [place] [address]- 2546 Apr, [facility] [place] [facility] [address] [id number] [place] [address] 2544 Apr, [facility] [place] [facility] [address] [id number] [place] [address]- 2546 Apr, [facility] [place] [facility] [address] [id number] [place] [address]- 2541 Apr, [facility] [place] [facility] [address] [id number] [place] [address]- 1373 15 Apr, 2014 [facility] [place] [facility] [address] [id number] [place] [address]- 7737 15 Apr, 2014 [facility] [place] [facility] [address] [id number] [place] [address]- 8053 Apr, [facility] [place] [facility] [address] [facility] [id number] [place] 2224 Apr, [facility] [place] [facility] [address] [id number] [place] [address]- 1794 Apr, [facility] [place] [facility] [address] [id number] [place] [address]- 2917 Apr, [facility] [place] [facility] [address] [id number] [place] [address]- 4669 Apr, [facility] [place] [facility] [address] [id number] [place] [address]- 1092 Apr, [facility] [place] [facility] [address] [id number] [place] [address]- 3664 Apr, [facility] [place] [facility] [address] [id number] [place] [address]- 2024 Apr, [facility] [place] [facility] [address] [id number] [place] [address]- 1698 Apr, [facility] [place] [facility] [address] [id number], [place] [address]- 8069 Apr, [facility] [place] [facility] [address] [id number], [place] [address]- 8135 Mar, [facility] [place] [facility] [address] [id number] [place] [address]- 8585 Mar, [facility] [place] [facility] [address] [id number], [place] [address]- 5663 Mar, [facility] [place] [facility] [address] [id number] [place] [address]- 5517 Mar, [facility] [place] [facility] [address] [id number] [place] [address]- 3240 Mar, [facility] [place] [facility] [address] [id number] [place] [address]- 2104 Mar, [facility] [place] [facility] [address] [id number] [place] [address]- 4676 Mar, [facility] [place] [facility] [address] [id number] [place] [address]- 4532 Mar, [facility] [place] [facility] [address] [id number] [place] [address]- 2114 Mar, [facility] [place] [facility] [address] [id number] [place] [address]- 8495 Mar, [facility] [place] [facility] [address] [id number] [place] [address]- 4344 Mar, [facility] [place] [facility] [address] [id number] [place] [address]- 7539 Mar, [facility] [place] [facility] [address] [id number] [place] [address]- 6686 Mar, [facility] [place] [facility] [address] [id number] [place] [address]- 2032 Feb, [facility] [place] [facility] [address] [facility] [id number] [place] [address]- 2070 Feb, [facility] [place] [facility] [address] [id number] [place] [address]- 2971 30 Feb, 2014 [facility] [place] [facility] [address] [id number] [place] [address]- 7143 Feb, [facility] [place] [facility] [address] [id number] [place] [address]- 3228 Feb, [facility] [place] [facility] [address] [id number] [place] [address]- 2984 Feb, [facility] [place] [facility] [address] [id number] [place] [address]- 6441 Feb, [facility] [place] [facility] [address] [id number] [place] [address]- 3723 Feb, [facility] [place] [facility] [address] [id number] [place] [address]- 6822 Feb, [facility] [place] [facility] [address] [id number] [place] [address]- 1163 Feb, [facility] [place] [facility] [address] [id number] [place] [address]- 7675 Feb, [facility] [place] [facility] [address] [id number] [place] [address]- 7207 Feb, [facility] [place] [facility] [address] [id number] [place] [address]- 7438 Feb, [facility] [place] [facility] [address] [id number] [place] [address]- 4319 Feb, [facility] [place] [facility] [address] [id number] [place] [address]- 7066 Feb, [facility] [place] [facility] [address] [id number] [place] [address]- 0785 10 Jan, 2014 [facility] [place] [facility] [address] [id number] [place] [address]- 7632 08 Jan, 2014 [facility] [place] [facility] [address] [id number] [place] [address]- 6236 08 Jan, 2014 [facility] [place] [facility] [address] [id number] [place] [address]- 1629 08 Jan, 2013 [facility] [place] [facility] [address] [id number] [place] [address]- 3270 08 Jan, 2014 [facility] [place] [facility] [address] [id number] [place] [address]- 2286 Dec, [facility] [place] [facility] [address] [id number] [place] [address]- 1972 Dec, [facility] [place] [facility] [address] [id number] [place] [address]- 1465 Dec, [facility] [place] [facility] [address] [id number] [place] [address]- 3291 Dec, [facility] [place] [facility] [address] [id number] [place] 9260 Nov, [facility] [place] [facility] [address] [id number] [place] [address]- 4079 Nov, [facility] [place] [facility] [address] [id number] [place] [address]- 4563 Nov, [facility] [place] [facility] [address] [id number] [place] [address]- 0493 Nov, [facility] [place] [facility] [address] [id number] [place] [address]- 6238 Nov, [facility] [place] [facility] [address] [id number] [place] [address]- 9076 Nov, [facility] [place] [facility] [address] [id number] [place] [address]- 2997 Nov, [facility] [place] [facility] [address] [id number] [place] [address]- 6722 Nov, [facility] [place] [facility] [address] [id number] [place] [address]- 2551 Nov, [facility] [place] [facility] [address] [id number] [place] [address]- 6737 Nov, [facility] [place] [facility] [address] [id number] [place] [address]- 1678 Oct, [facility] [place] [facility] [address] [id number] [place] [address]- 4892 Oct, [facility] [place] [facility] [address] [id number] [place] [address]- 0167 September, [facility] [place] [facility] [address] [id number] [place] [address]- 8966 September, [facility] [place] [facility] [address] [id number] [place] [address]- 2886 September, [facility] [address] [id number] [place] [address]- 9465 September, [facility] [address] [id number] [place] [address]- 6626 16 Aug, 2013 [facility] [address] [id number] [place] [address]- 7145 14 Aug, 2013 [facility] [address] [id number] [place] [address]- 1801 Aug, [facility] [address] [id number] [place] [address]- 8706 24 Jul, 2013 [facility] [address] [id number] [place] [address]- 3545 24 Jul, 2013 [facility] [address] [id number] [place] [address]- 5345 Jul, [facility] [address] [id number] [place] [address]- 1367 Jul, [facility] [address] [id number] [place] [address]- 6191 May, [facility] [address] [id number] [place] [address]- 1046 May, [facility] [address] [id number] [place] [address]- 9267 May, [facility] [address] [id number] [place] [address]- 4511 15 Mar, 2013 [facility] [place] [facility] [address] [id number] [place] [address]- 5872 15 Mar, 2013 [facility] [address] [id number] [place] [address]- 4696 13 Mar, 2013 [facility] [address] [id number] [place] [address]- 2847 Mar, [facility] [place] [facility] [address] [id number] [place] [address]- 1364 Feb, [facility] [place] [facility] [address] [id number] [place] [address]- 2204 Feb, [facility] [place] [facility] [address] [id number] [place] [address]- 8489 Feb, [facility] [place] [facility] [address] [id number] [place] [address]- 4476 Jan, [facility] [place] [facility] [address] [id number] [place] [address]- 8058 Jan, [facility] [place] [facility] [address] [id number] [place] [address]- 2674 Jan, [facility] [place] [facility] [address] [id number] [place] [address]- 2191 Dec, [facility] [place] [facility] [address] [id number] [place] [address]- 3013 Dec, [facility] [place] [facility] [address] [id number] [place] [address]- 7303 Dec, [facility] [place] [facility] [address] [id number] [place] [address]- 0587 Dec, [facility] [place] [facility] [address] [id number] [place] [address]- 2041 Nov, [facility] [place] [facility] [address] [id number] [place] [address]- 5876 Oct, [facility] [place] [facility] [address] [id number] [place] [address]- 4763 Oct, [facility] [place] [facility] [address] [id number] [place] [address]- 8075 September, [facility] [place] [facility] [address] [id number] [place] [address]- 3065 September, [facility] [place] [facility] [address] [id number] [place] [address]- 1263 September, [facility] [address] [id number] [place] [address]- 1462 30 Aug, 2012 [facility] [address] [id number] [place] [address]- 2686 18 Aug, 2012 [facility] [address] [id number] [place] [address]- 2307 Aug, [facility] [address] [id number] [place] [address]- 7894 Aug, [facility] [address] [id number] [place] [address]- 3231 26 Jul, 2012 [facility] [address] [id number] [place] [address]- 8125 Jul, [facility] [address] [id number] [place] [address]- 2526 Jul, [facility] [address] [id number] [place] [address]- 0359 15 Jul, 2012 [facility] [address] [id number] [place] [address]- 9867 14 Jul, 2012 [facility] [address] [id number] [place] [address]- 2117 Jul, [facility] [address] [id number] [place] [address]- 0136 Jul, [facility] [place] [facility] [address] [id number] [place] [address]- 2808 Jun, [facility] [place] [facility] [address] [id number] [place] [address]- 1257 Jun, [facility] [place] [facility] [address] [id number] [place] [address]- 8677 Jun, [facility] [place] [facility] [address] [id number] [place] [address]- 3140 Jun, [facility] [place] [facility] [address] [id number] [place] [address]- 0097 May, [facility] [place] [facility] [address] [id number] [place] [address]- 4264 May, [facility] [place] [facility] [address] [id number] [place] [address]- 3762 May, [facility] [place] [facility] [address] [id number] [place] [address] May, [facility] [address] [id number] [place] [address] May, [facility] [facility] [address] [id number] [place] [address] Apr, [facility] [address] [id number] [place] [address] Apr, [facility] [address] [id number] [place] [address] Mar, [facility] [place] [facility] [address] [id number] [place] [address] Mar, [facility] [place] [facility] [address] [id number] [place] [address] Mar, [facility] [address] [id number] [place] [address] Mar, [facility] [place] [facility] [address] [id number] [place] [address] Mar, [facility] [place] [facility] [address] [id number] [place] [address] Mar, [facility] [place] [facility] [address] [id number] [place] [address] Mar, [facility] [place] [facility] [address] [id number] [place] [address] Mar, [facility] [place] [address] [id number] [place] [address] Mar, [facility] [place] [address] [id number] [place] [address] Mar, [facility] [place] [facility] [address] [id number] [place] [address] Feb, [facility] [place] [address] [id number] [place] [address] Feb, [facility] [address] [id number] [place] [address] Feb, [facility] [address] [id number] [place] [address] Feb, [facility] [address] [id number] [place] [address] Feb, [facility] [address] [id number] [place] [address] Feb, [facility] [address] [id number] [place] [address] Feb, [facility] [address] [id number] [place] [address] Jan, [facility] [address] [id number] [place] [address] Jan, [facility] [place] [address] [id number] [place] [address] Dec, [facility] [address] [id number] [place] [address] Dec, [facility] [address] [id number] [place] [address] Dec, [facility] [address] [id number] [place] [address] Dec, [facility] [address] [id number] [place] [address] Dec, [facility] [address] [id number] [place] [address] Dec, [facility] [address] [id number] [place] [address] Nov, [facility] [address] [id number] [place] [address] Nov, [facility] [address] [id number] [place] [address] Nov, [facility] [address] [id number] [place] [address] Nov, [facility] [address] [id number] [place] [address] September, [facility] [address] [id number] [place] [address] September, [facility] [address] [id number] [place] [address] September, [facility] [address] [id number] [place] [address] Jul, [facility] [address] [id number] [place] [address] 29 Jun, 2011 [facility] [address] [id number] [place] [address] Jun, [facility] [address] [id number] [place] [address] Jun, [facility] [address] [id number] [place] [address]- [address] Apr, [facility] [address] [id number] [place] [address] Mar, [facility] [address] [id number] [place] [address] Mar, [facility] [address] [id number] [place] [address] Feb, [facility] [address] [facility] [id number] [place] [address] Feb, [facility] [address] [facility] [id number], [place] [address] Feb, [facility] [address] [facility] [id number], [place] [address] Jul, [facility] [address] [facility] [id number], [place] [address] Feb, IMMUNIZATIONS No Known Immunizations SOCIAL HISTORY Never Assessed REASON FOR VISIT Medication refill request PLAN OF CARE VITAL SIGNS MEDICATIONS Medication Instructions Dosage Frequency Start Date End Date Duration Status Neurontin 600 MG Orally Three times a day 1 capsule 8h Nov, 30 day(s) Active Actos 30 MG Orally Once a day 1 tablet 24h Feb, 30 day(s) Active Methotrexate 2.5 MG Orally 1 time per week 6 Active Spironolactone 25 MG TAKE ONE TABLET BY MOUTH ONCE DAILY 30 Active Omeprazole 20 MG 1 capsule 24h Active Folic Acid 1 MG TAKE ONE TABLET BY MOUTH ONCE DAILY (DO NOT TAKE ON DAYS YOU TAKE METHOTREXATE) 30 Active Furosemide 20 MG TAKE 1 TABLET BY MOUTH ONCE DAILY 30 Active RESULTS No Results PROCEDURES No Known [...]
--- OUTSIDE RECORDS SUMMARY | 2018-05-09 22:28 | XMS REPORT ---
Author Author JASON ROSS [facility] Address [address] [place] [address] Care Team Providers Care Boxing And Pressing Supervisor Name Role Phone CODY JASON Unavailable PROBLEMS Type Condition ICD9-CM Code JUQ51-HC Code Onset Dates Condition Status SNOMED Code Problem Dermatomyositis M33.90 Active 956204056 Problem Lumbago with sciatica, right side M54.41 Active 900721597 Problem Morbid (severe) obesity due to excess calories E66.01 Active 612239043 Problem Diabetes with other specified manifestations, type II or unspecified type, not stated as uncontrolled 250.80 Active 673741158 Problem Osteoarthritis of right knee, unspecified osteoarthritis type M17.9 Active 727509864 Problem Hypertension, unspecified type I10 Active 14995914 Problem Menopause Z78.0 Active 930938948 Problem Diabetes type 2, controlled E11.9 Active 00632739 Problem Facial droop R29.810 Active 62460619 Problem Gait disturbance R26.9 Active 09249509 Problem Other specified mental disorders due to known physiological condition F06.8 Active 64093689 Problem Frequent falls R29.6 Active 285422454 Problem Plantar warts B07.0 Active 52721789 Problem Arthritis M19.90 Active 7940171 Problem Anxiety F41.9 Active 90429192 Problem Other chronic pain G89.29 Active 69907853 Problem Controlled type 2 diabetes mellitus without complication, without long -term current use of insulin E11.9 Active 658686683 Problem Body mass index (BMI) of 45.0-49.9 in adult Z68.42 Active 900971378 Problem Allergic rhinitis due to pollen J30.1 Active 03420615 Problem Plantar wart of both feet B07.0 Active [id number] Problem Tachycardia with heart rate 121-140 beats per minute R00.0 Active 2977620 Problem Mood disorder F39 Active 28763952 Problem Lumbago with sciatica, left side M54.42 Active 984820605 Problem Enlarged thyroid gland E04.9 Active 5682567 ALLERGIES No Information ENCOUNTERS Encounter Location Date Diagnosis [facility] [place] [id number] [place] [address] 21763- 7559 Apr, [facility] [place] [id number] [place] [address] 43929- 7157 Mar, [facility] [place] [id number] [place] [address] 74533- 0615 Mar, [facility] [place] [id number] [place] [address] 98866- 2010 Mar, Pain in right knee M25.561 and Other chronic pain G89.29 [facility] [id number] [place] [address] 61715 -3702 Mar, Vaginal itching N89.8 ; Urinary tract infection, site not specified N39.0 ; Hematuria, unspecified R31.9 and Vaginal arabella B37.3 [facility] [place] [id number] [place] [address] 18542- 0733 Mar, Mood disorder F39 [place] [facility] [id number] [place] [address] 77500- 0814 Feb, BMI 40.0-44.9, adult Z68.41 ; Diabetes type 2, controlled E11.9 ; Osteoarthritis of right knee, unspecified osteoarthritis type M17.9 ; Dermatomyositis M33.90 ; Hypertension, unspecified type I10 and Fatigue, unspecified type R53.83 [facility] [place] [id number] [place] [address] 38949- 3303 Feb, [facility] [id number] [place] [address] 13401- 3992 Feb, BMI 45.0-49.9, adult Z68.42 [facility] [id number] [place] [address] 19756- 0038 Feb, Mood disorder F39 [place] [id number] [place] [address] 28098- 2177 Feb, [facility] [id number] [place] [address] 58277- 9711 Feb, Mood disorder F39 [place] [id number] [place] [address] 61170- 3531 15 Feb, 2018 Other chronic pain G89.29 ; Anxiety F41.9 and Diabetes with other specified manifestations, type II or unspecified type, not stated as uncontrolled 250.80 [facility] [id number] [place] [address] 09470- 6279 Feb, BMI 40.0-44.9, adult Z68.41 [facility] [id number] [place] [address] 45612- 3214 Feb, Pain in right knee M25.561 and Other chronic pain G89.29 [facility] [id number] [place] [address] 26577- 4318 Feb, [facility] [facility] [id number] [place] [address] 62324- 2158 Feb, BMI 45.0-49.9, adult Z68.42 ; Gait disturbance R26.9 ; Other specified mental disorders due to known physiological condition F06.8 ; Weakness R53.1 ; Frequent falls R29.6 and Self-care deficit for bathing R46.0 [facility] [id number] [place] [address] 75288- 1859 Feb, Pain in right knee M25.561 and Other chronic pain G89.29 [facility] [id number] [place] [address] 36609- 1329 Jan, Mood disorder F39 [place] [id number] [place] [address] 15504- 3344 Jan, BMI 45.0-49.9, adult Z68.42 and 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 [facility] [facility] [id number] [place] [address] 35343- 1146 Jan, [facility] [place] [id number] [place] [address] 87808- 4865 Jan, [facility] [place] [id number] [place] [address] 89115- 8920 Jan, [facility] [place] [id number] [place] [address] 22150- 9185 Jan, 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 [facility] [place] [id number] [place] [address] 57136- 5583 Jan, [facility] [place] [id number] [place] [address] 22566- 2755 Jan, [facility] [place] [id number] [place] [address] 69954- 7456 Jan, [facility] [place] [id number] [place] [address] 84343- 8786 19 Jan, 2018 Allergic reaction to drug, initial encounter T78.40XA [facility] [place] [id number] [place] [address] 04098- 5404 17 Jan, 2018 BMI 45.0-49.9, adult Z68.42 and Facial droop R29.810 [facility] [place] [id number] [place] [address] 73992- 1851 14 Jan, 2018 Mood disorder F39 [facility] [place] [id number] [place] [address] 95231- 5656 11 Jan, 2018 Dermatomyositis M33.90 and BMI 40.0-44.9, adult Z68.41 [facility] [place] [id number] [place] [address] 26495- 6791 10 Jan, 2018 [facility] [place] [id number] [place] [address] 08470- 8162 05 Jan, 2018 [facility] [place] [id number] [place] [address] 44109- 2043 04 Jan, 2018 Irritation of left eye H57.8 and BMI 40.0-44.9, adult Z68.41 [facility] [place] [id number] [place] [address] 68001- 8696 Dec, Diabetes type 2, controlled E11.9 [facility] [place] [id number] [place] [address] 91195- 0750 Dec, Acute right ankle pain M25.571 [facility] [place] [address] 70827- 3949 Dec, Other chronic pain G89.29 ; Diabetes type 2, controlled E11.9 ; Gait disturbance R26.9 ; Weakness R53.1 and Muscle spasm M62.838 [place] [address] 06725- 6484 Dec, Acute non-recurrent maxillary sinusitis J01.00 [facility] [place] [address] 67973- 8511 Dec, [facility] [place] [address] 52638- 7233 Dec, [facility] [place] [address] 01902- 8965 Dec, Acute non-recurrent maxillary sinusitis J01.00 [facility] [place] [id number] [place] [address] 40671- 7813 Dec, Lumbago with sciatica, right side M54.41 and Lupus erythematosus L93.0 [facility] [place] [id number] [place] [address] 68046- 5895 Dec, Mood disorder F39 [facility] [place] [id number] [place] [address] 47621- 8231 Dec, Mood disorder F39 [facility] [place] [id number] [place] [address] 93936- 3301 Dec, [facility] [place] [address] 99742- 5525 Dec, Acute right ankle pain M25.571 [facility] [place] [id number] [place] [address] 84897- 4389 Nov, Lumbar radiculopathy M54.16 [facility] [place] [id number] [place] [address] 48027- 3405 Nov, [facility] [place] [id number] [place] [address] 15124- 4536 Nov, Mood disorder F39 [facility] [place] [id number] [place] [address] 06740- 6041 Nov, Lumbago with sciatica, right side M54.41 and Other chronic pain G89.29 [facility] [place] [id number] [place] [address] 94863- 4136 Nov, Acute right ankle pain M25.571 [facility] [place] [id number] [place] [address] 24392- 2032 Nov, [facility] [place] [id number] [place] [address] 99963- 0682 Oct, [facility] [place] [id number] [place] [address] 75638- 7909 Oct, Plantar wart of both feet B07.0 [facility] [place] [id number] [place] [address] 14645- 7645 Oct, [facility] [place] [id number] [place] [address] 19434- 8907 Oct, Acute right ankle pain M25.571 and Plantar wart of both feet B07.0 [facility] [place] [id number] [place] [address] 61523- 2237 September, Other chronic pain G89.29 [facility] [place] [address] [place] [address] 88954- 7237 September, Other chronic pain G89.29 [facility] [place] [id number] [place] [address] 87630- 2168 September, Other chronic pain G89.29 [place] [address] 98830- 9137 Aug, Mood disorder F39 [place] [address] 55463- 8055 Aug, Other chronic pain G89.29 ; Controlled type 2 diabetes mellitus without complication, without long-term current use of insulin E11.9 ; Low back pain M54.5 and Tinea corporis B35.4 [place] [address] 14029- 4365 Aug, Mood disorder F39 and Anxiety F41.9 [place] [address] 90004- 1790 Aug, Mood disorder F39 and Anxiety F41.[address] 22164- 7173 Jul, [facility] [address] 27064 -1994 Jul, Scabies B86 and BMI 45.0-49.9, adult Z68.42 [place] [address] 29592- 4465 Jul, [place] [address] 67817- 0744 Jul, Mood disorder F39 and Anxiety F41.9 [place] [address] 19862- 1000 Jul, [facility] [address] [place] [address] 07278 -9335 27 Jun, 2017 Bronchitis J40 ; Dark urine R82.99 and BMI 45.0-49.9, adult Z68.[address] 85802- 1119 14 Jun, 2017 Acute pain of right shoulder M25.511 and Acute pain of right knee M25.561 [id number] [place] [address] 04082- 9555 May, BMI 40.0-44.9, adult Z68.41 ; Controlled type 2 diabetes mellitus without complication, without long-term current use of insulin E11.9 ; Muscle cramping R25.2 ; Hot flashes R23.2 ; Mood disorder F39 ; Anxiety F41.9 and Morbid (severe) obesity due to excess calories E66.01 [address] [id number] [place] [address] 28642- 6628 May, BMI 40.0-44.9, adult Z68.41 ; Controlled type 2 diabetes mellitus without complication, without long-term current use of insulin E11.9 ; Muscle cramping R25.2 and Hot flashes R23.[address] 93963- 2266 May, Tachycardia with heart rate 121-140 beats per minute R00.0 ; Morbid (severe) obesity due to excess calories E66.01 ; Diabetes type 2, controlled E11.9 and Enlarged thyroid gland E04.9 [address] [id number] [place] [address] 97786- 4206 May, Encounter for well woman exam with [...] and Screening breast examination Z12.31 [address] [id number] [place] [address] 51999- 9430 Apr, Mood disorder F39 ; Other chronic pain G89.29 and Anxiety F41.[address] [place] [address]- 7196 Apr, Lumbago with sciatica, left side M54.42 and Other chronic pain G89.29 [facility] [place] [id number] [place] [address] 06490- 2810 Apr, Lupus erythematosus L93.0 [facility] [place] [id number] [place] [address] 15164- 9535 Mar, Plantar wart of both feet B07.0 [facility] [place] [id number] [place] [address] 45559- 6339 Mar, Lupus erythematosus L93.0 and Sinus drainage J34.89 [facility] [place] [address] 62445- 3649 Mar, Mood disorder F39 ; Other chronic pain G89.29 and Anxiety F41.9 [facility] [place] [id number] [place] [address] 80468- 1161 Mar, Mood disorder F39 ; Arthritis M19.90 and Plantar warts B07.0 [facility] [place] [id number] [place] [address] 07884- 2885 Feb, Lupus erythematosus L93.0 [facility] [place] [id number] [place] [address] 01086- 1856 Feb, Other chronic pain G89.29 [facility] [place] [id number] [place] [address] 32697- 8541 Feb, Mood disorder F39 and Anxiety F41.9 [facility] [place] [id number] [place] [address] 94174- 0364 Jan, [facility] [place] [id number] [place] [address] 91822- 6231 Jan, Mood disorder F39 [facility] [place] [id number] [place] [address] 47702- 9246 Dec, Nail, ingrown L60.0 [facility] [place] [id number] [place] [address] 30931- 1362 Dec, Nail, ingrown L60.0 [facility] [place] [id number] [place] [address] 98699- 5284 Nov, Mood disorder F39 and Anxiety F41.9 [facility] [place] [id number] [place] [address] 66532- 5229 Nov, Sinus drainage J34.89 ; Hot flashes R23.2 ; Anxiety F41.9 and Diabetes type 2, controlled E11.9 [facility] [place] [id number] [place] [address] 00576- 9952 Nov, Nail, ingrown L60.0 [facility] [place] [id number] [place] [address] 30555- 3546 Oct, Anxiety F41.9 and Mood disorder F39 [place] [id number] [place] [address] 36852- 7454 Oct, Nail, ingrown L60.0 and Anxiety F41.9 [facility] [place] [id number] [place] [address] 84595- 5258 Oct, Lupus erythematosus L93.0 [facility] [place] [id number] [place] [address] 70967- 9875 September, [facility] [place] [id number] [place] [address] 85559- 9838 September, [facility] [place] [id number] [place] [address] 84418- 3790 September, Lupus erythematosus L93.0 [facility] [place] [id number] [place] [address] 98714- 9981 Aug, [facility] [place] [id number] [place] [address] 39920- 2150 Aug, Mood disorder F39 and Anxiety F41.9 [facility] [place] [id number] [place] [address] 40189- 4755 Aug, Lupus erythematosus L93.0 ; Diabetes type 2, controlled E11.9 and Localized edema R60.0 [place] [id number] [place] [address] 42391- 9965 Aug, [place] [id number] [place] [address] 02236- 8281 Jul, Anxiety F41.9 and Mood disorder F39 [place] [address] 50364- 5651 Jul, Diabetes type 2, controlled E11.9 [place] [id number] [place] [address] 02859- 3319 Jun, Anxiety F41.9 [place] [id number] [place] [address] 11991- 2412 May, [place] [address] 11340- 8368 May, [place] [id number] [place] [address] 05805- 4657 May, Nausea R11.0 ; Other chronic pain G89.29 and Pain in right knee M25.561 [place] [id number] [place] [address] 51288- 9856 May, [place] [id number] [place] [address] 16514- 0763 Apr, Tear of medial meniscus of right knee, current, unspecified tear type, subsequent encounter S83.241D and Tear of lateral meniscus of right knee, current, unspecified tear type, subsequent encounter S83.281D [place] [id number] [place] [address] 75150- 8509 Apr, Anxiety F41.9 and Mood disorder F39 [place] [id number] [place] [address] 89279- 8922 Apr, Anxiety F41.9 [place] [id number] [place] [address] 14515- 9343 Apr, [facility] [place] [id number] [place] [address] 29241- 8017 Mar, [facility] [place] [id number] [place] [address] 11767- 8818 Mar, Lupus erythematosus L93.0 and Diabetes type 2, controlled E11.9 [facility] [place] [address] 21216- 5824 Mar, Mood disorder F39 [facility] [place] [id number] [place] [address] 13880- 7661 Mar, Tear of lateral meniscus of right knee, current, unspecified tear type, initial encounter S83.281A and Osteoarthritis of right knee, unspecified osteoarthritis type M17.9 [facility] [place] [id number] [place] [address] 71681- 1633 Mar, [facility] [place] [id number] [place] [address] [phone] Feb, Mood disorder F39 [facility] [place] [id number] [place] [address] [phone] Feb, Rash R21 [facility] [place] [id number] [place] [address] [phone]- [phone] Feb, [facility] [place] [id number] [place] [address] [phone]- [phone] Jan, Other chronic pain G89.29 and Muscle spasm M62.838 [facility] [place] [id number] [place] [address] [phone]- [phone] Jan, Mood disorder F39 [facility] [place] [id number] [place] [address] 20942- 8055 Jan, Pain in right knee M25.561 ; Other chronic pain G89.29 and Muscle spasm M62.838 [facility] [place] [id number] [place] [address] [phone]- 2256 Dec, [place] [id number] [place] [address] [phone]- [phone] Dec, [place] [id number] [place] [address] [phone] Nov, [place] [id number] [place] [address] [phone]- [phone] Nov, Mood disorder F39 [place] [address] [phone]- 3487 Nov, Diabetes type 2, controlled E11.9 ; Bronchitis J40 ; Edema, unspecified type R60.9 ; Weight gain R63.5 and Right knee pain, unspecified chronicity M25.561 [place] [id number] [place] [address] 42496- 4315 Oct, Mood disorder F39 [place] [address] 04834- 3376 Oct, Lupus erythematosus L93.0 and Bilateral edema of lower extremity R60.0 [place] [id number] [place] [address] 64487- 0657 Oct, Mood disorder F39 and Anxiety F41.9 [place] [id number] [place] [address] [phone]- [phone] September, Mood disorder F39 ; Anxiety F41.9 and Anger reaction R45.4 [place] [id number] [address] [place] [address] 81881- 9514 September, Diabetes type 2, controlled E11.9 ; Edema, unspecified type R60.9 and Fatigue, unspecified type R53.83 [place] [id number] [place] [address] 14990- 1026 Aug, Mood disorder F39 and Generalized anxiety disorder F41.1 [facility] [facility] [id number] [place] [address] 51158- 6582 Aug, Diabetes type 2, controlled E11.9 ; Sinusitis J32.9 and Mood disorder F39 [facility] [place] [address], [place] [address] 6566 15 Aug, 2015 Lupus erythematosus L93.0 [facility] [place] [id number] [place] [address] 35002- 6822 14 Aug, 2015 [facility] [place] [id number] [place] [address] 59530- 7587 07 Aug, 2015 [facility] [place] [id number] [place] [address] 20310- 4268 Jul, Diabetes type 2, controlled E11.9 [facility] [place] [id number] [place] [address] 51645- 8075 Jul, Mood disorder F39 and Depression F32.9 [facility] [place] [id number] [place] [address] 71117- 2712 Jul, Lupus erythematosus L93.0 and Diabetes type 2, controlled E11.9 [facility] [place] [id number] [place] [address] 26936- 0047 Jul, Mood disorder F39 and Anxiety F41.9 [facility] [place] [id number] [place] [address] 33821- 8990 Jul, [facility] [place] [id number] [place] [address] 30879- 2888 Jul, [facility] [place] [id number] [place] [address] 29997- 5251 Jun, Mood disorder F39 and Anxiety F41.9 [facility] [place] [id number] [place] [address] 02731- 1040 Jun, Mood disorder F39 [facility] [place] [id number] [place] [address] 83854- 1322 18 Jun, 2015 [facility] [place] [id number] [place] [address] 20045- 9319 15 Jun, 2015 [facility] [place] [address], [place] [address]- 4075 08 Jun, 2015 Mood disorder F39 [facility] [place] [id number] [place] [address] 07311- 3173 Jun, [facility] [place] [id number] [place] [address] 59813- 0550 May, [facility] [place] [id number] [place] [address] 46663- 7489 May, [facility] [place] [id number] [place] [address] 57991- 5642 May, [facility] [place] [id number] [place] [address] 06092- 2906 May, [facility] [place] [id number] [place] [address] 64732- 9819 May, Anxiety F41.9 ; Dermatomyositis M33.90 and Diabetes type 2, controlled E11.9 [facility] [address], [place] [address] May, Sinusitis J32.9 and Cough R05 [facility] [place] [id number] [place] [address] 72132- 6215 May, Mood disorder F39 [facility] [place] [id number] [place] [address] 00034- 6550 May, Adjustment disorder with mixed anxiety and depressed mood F43.23 [facility] [place] [address], [place] [address]- 2395 Apr, [facility] [place] [id number] [place] [address] 91533- 5950 Apr, [facility] [place] [address], [place] [address]- 1853 Apr, Generalized anxiety disorder F41.1 and Mood disorder F39 [facility] [place] [id number] [place] [address] 81158- 8014 Mar, [facility] [place] [address], [place] [address]- 0738 Mar, [facility] [place] [id number] [place] [address] 12406- 6203 Mar, [facility] [place] [id number] [place] [address] 39962- 1413 Mar, Mood disorder F39 [facility] [place] [id number] [place] [address] 53080- 4022 Feb, [facility] [place] [id number] [place] [address] 28281- 2674 Feb, Diabetes E11.9 and Bronchitis J40 [facility] [place] [id number] [place] [address] 27098- 9102 Feb, [facility] [place] [id number] [place] [address] 85168- 4877 Feb, [facility] [place] [id number] [place] [address] 99686- 2110 Feb, Major depression, recurrent, full remission F33.42 and KELLY ( generalized anxiety disorder) F41.1 [facility] [place] [id number] [place] [address] 97749- 5811 Feb, [facility] [place] [id number] [place] [address] 33794- 7929 Feb, Single major depressive episode, in partial or unspecified remission F32.5 [facility] [place] [id number] [place] [address] 52257- 5632 Jan, Fatigue 780.79 [facility] [place] [id number] [place] [address] 22977- 7948 Jan, [facility] [place] [address], [place] [address]- 8612 Jan, Diabetes with other specified manifestations, type II or unspecified type, not stated as uncontrolled 250.80 [facility] [address], [place] [address]- 2405 Jan, [facility] [place] [id number] [place] [address] 97801- 0158 Dec, Hot flashes 627.2 ; Memory loss 780.93 and Joint pain 719.40 [place] [id number] [place] [address] 12330- 4174 Dec, Major depression, recurrent 296.30 ; Generalized anxiety disorder 300.02 ; Adjustment disorder with depressed mood 309.0 and No condition on [place] II V71.09 [facility] [id number] [place] [address] 35912- 2325 Dec, [facility] [id number] [place] [address] 89389- 8082 Nov, Cognitive and neurobehavioral dysfunction 294.9 ; Major depressive disorder, recurrent episode, moderate degree 296.32 and Anxiety state , unspecified 300.00 [place] [id number] [place] [address] 29881- 2839 Nov, [facility] [id number] [place] [address] 15579- 9290 Nov, Bronchitis 490 and Diabetes with other specified manifestations, type II or unspecified type, not stated as uncontrolled 250.80 [facility] [id number] [place] [address] 25631- 7976 Nov, Major depressive disorder, recurrent episode, moderate 296.32 and Anxiety disorder, unspecified 300.00 [facility] [place] [id number] [place] [address] 82941- 2929 Nov, Anxiety, generalized 300.02 ; Intermittent explosive disorder 312.34 ; No condition on [place] II V71.09 and No condition on axis III V71.09 [facility] [id number] [place] [address] 22383- 1905 Oct, Diabetes with other specified manifestations, type II or unspecified type, not stated as uncontrolled 250.80 ; Urinary tract infection, site not specified 599.0 and Bronchitis 490 [place] [id number] [place] [address] 31696- 1004 17 Oct, 2014 Intermittent explosive disorder 312.34 ; Bipolar 1 disorder , depressed, moderate 296.52 ; Major depression, chronic 296.20 ; No condition on [place] II V71.09 and No condition on axis III V71.09 [place] [id number] [place] [address] 48899- 7194 15 Oct, 2014 Major depressive disorder, recurrent episode, moderate 296.32 ; Anxiety state 300.00 ; Cognitive decline 294.9 and No condition on [place] II V71.09 [place] [id number] [place] [address] 99553- 1241 Oct, [place] [id number] [place] [address] 06084- 4286 Oct, Major depressive disorder, recurrent episode, moderate 296.32 ; Anxiety disorder, unspecified 300.00 and Persistent disorder of initiating or maintaining sleep 307.42 [place] [id number] [place] [address] 93776- 5918 September, Diabetes with other specified manifestations, type II or unspecified type, not stated as uncontrolled 250.80 ; Memory loss 780.93 and Cognitive complaints 799.59 [place] [id number] [place] [address] 56659- 2828 September, No condition on [place] II V71.09 ; Major depression, recurrent 296.30 and Persistent mood [affective] disorder, unspecified 296.90 [facility] [id number] [place] [address] 60334- 0525 Aug, [place] [id number] [place] [address] 39996- 5767 Aug, [place] [id number] [place] [address] 39499- 4915 Aug, [place] [id number] [place] [address] 17646- 1530 Jul, 2014 [facility] [place] [facility] [address] [facility] [id number] [place] [address]- 1297 Jul, [facility] [place] [facility] [address] [facility] [id number] [place] [address]- 5404 Jul, 2014 [facility] [place] [facility] [address] [facility] [id number] [place] [address]- 6235 Jul, 2014 [facility] [place] [facility] [address] [facility] [id number] [place] [address]- 5300 Jul, 2014 [facility] [place] [facility] [address] [facility] [id number] [place] [address]- 0593 Jun, 2014 [facility] [place] [facility] [address] [facility] [id number] [place] [address]- 2693 Jun, 2014 [facility] [place] [facility] [address] [facility] [id number] [place] [address]- 2827 Jun, 2014 [facility] [place] [facility] [address] [facility] [id number] [place] [address]- 5060 Jun, 2014 [facility] [place] [facility] [address] [facility] [id number] [place] [address]- 3176 Jun, 2014 [facility] [place] [facility] [address] [facility] [id number], [place] [address]- 7336 Jun, 2014 [facility] [place] [facility] [address] [facility] [id number], [place] [address]- 4768 Jun, 2014 [facility] [place] [facility] [address] [facility] [id number], [place] [address]- 3054 Jun, 2014 [facility] [place] [facility] [address] [facility] [id number], [place] [address]- 8484 Jun, 2014 [facility] [place] [facility] [address] [facility] [id number], [place] [address]- 3272 Jun, 2014 [facility] [place] [facility] [address] [facility] [id number], [place] [address]- 6266 Jun, 2014 [facility] [place] [facility] [address] [id number] [place] [address]- 8598 Jun, [facility] [place] [facility] [address] [id number] [place] [address]- 6964 Jun, [facility] [place] [facility] [address] [id number] [place] [address]- 9869 May, [facility] [place] [facility] [address] [id number] [place] [address]- 7077 May, [facility] [place] [facility] [address] [id number] [place] [address]- 6737 Apr, [facility] [place] [facility] [address] [id number] [place] [address]- 3224 Apr, [facility] [place] [facility] [address] [id number] [place] [address]- 8386 Apr, [facility] [place] [facility] [address] [id number] [place] [address]- 5120 Apr, [facility] [place] [facility] [address] [id number] [place] [address]- 6155 Apr, [facility] [place] [facility] [address] [id number] [place] [address]- 3884 Apr, [facility] [place] [facility] [address] [id number] [place] [address]- 1451 Apr, [facility] [place] [facility] [address] [id number] [place] [address]- 1064 Apr, [facility] [place] [facility] [address] [id number] [place] [address]- 2479 Apr, [facility] [place] [facility] [address] [id number] [place] [address]- 0884 Apr, [facility] [place] [facility] [address] [id number] [place] [address]- 0818 Apr, [facility] [place] [facility] [address] [id number] [place] [address]- 0387 Apr, [facility] [place] [facility] [address] [id number] [place] [address]- 8694 Apr, [facility] [place] [facility] [address] [id number] [place] [address]- 6475 Apr, [facility] [place] [facility] [address] [facility] [id number] [place] [address]- 6857 Apr, [facility] [place] [facility] [address] [id number] [place] [address]- 9365 Apr, [facility] [place] [facility] [address] [id number] [place] [address]- 5342 Apr, [facility] [place] [facility] [address] [id number] [place] [address]- 7400 Apr, [facility] [place] [facility] [address] [facility] [id number] [place] [address]- 3807 Apr, [facility] [place] [facility] [address] [id number] [place] [address]- 9460 Apr, [facility] [place] [facility] [address] [id number] [place] [address]- 4612 Mar, [facility] [place] [facility] [address] [id number] [place] [address]- 1409 Mar, [facility] [place] [facility] [address] [id number] [place] [address]- 9897 Mar, [facility] [place] [facility] [address] [id number] [place] [address]- 0456 Mar, [facility] [place] [facility] [address] [id number] [place] [address]- 8090 Mar, [facility] [place] [facility] [address] [id number] [place] [address]- 7643 Mar, [facility] [place] [facility] [address] [facility] [id number] [place] [address]- 4547 Mar, [facility] [place] [facility] [address] [id number] [place] [address]- 3815 Mar, [facility] [place] [facility] [address] [id number] [place] 6978 Mar, [facility] [place] [facility] [address] [id number] [place] 2793 Mar, [facility] [place] [facility] [address] [id number] [place] [address]- 7622 Mar, [facility] [place] [facility] [address] [id number] [place] [address]- 2749 Mar, [facility] [place] [facility] [address] [id number] [place] [address]- 9310 Mar, [facility] [place] [facility] [address] [id number] [place] [address]- 4058 Feb, [facility] [place] [facility] [address] [id number] [place] [address]- 4456 Feb, [facility] [place] [facility] [address] [id number] [place] [address]- 7209 30 Feb, 2014 [facility] [place] [facility] [address] [id number] [place] [address]- 6714 Feb, [facility] [place] [facility] [address] [id number] [place] [address]- 7698 Feb, [facility] [place] [facility] [address] [id number] [place] [address]- 2544 Feb, [facility] [place] [facility] [address] [id number] [place] [address]- 0283 Feb, [facility] [place] [facility] [address] [id number] [place] [address]- 8249 Feb, [facility] [place] [facility] [address] [id number] [place] [address]- 6786 Feb, [facility] [place] [facility] [address] [id number] [place] [address]- 3609 Feb, [facility] [place] [facility] [address] [id number] [place] [address]- 0422 Feb, [facility] [place] [facility] [address] [id number] [place] [address]- 2417 Feb, [facility] [place] [facility] [address] [id number] [place] [address]- 6049 10 Feb, 2014 [facility] [place] [facility] [address] [id number] [place] [address]- 6259 Feb, [facility] [place] [facility] [address] [id number] [place] [address]- 2987 Feb, [facility] [place] [facility] [address] [id number] [place] [address]- 1754 Jan, [facility] [place] [facility] [address] [id number] [place] [address]- 2597 08 Jan, 2014 [facility] [place] [facility] [address] [id number] [place] [address]- 1767 08 Jan, 2014 [facility] [place] [facility] [address] [id number] [place] [address]- 5144 Jan, [facility] [place] [facility] [address] [id number] [place] [address]- 6988 08 Jan, 2014 [facility] [place] [facility] [address] [id number], [place] [address]- 1427 Dec, [facility] [place] [facility] [address] [id number], [place] [address]- 8790 Dec, [facility] [place] [facility] [address] [id number] [place] [address]- 6917 Dec, [facility] [place] [facility] [address] [id number] [place] [address]- 1098 Dec, [facility] [place] [facility] [address] [id number] [place] [address]- 9129 Nov, [facility] [place] [facility] [address] [id number] [place] [address]- 4374 Nov, [facility] [place] [facility] [address] [id number] [place] [address]- 5466 Nov, [facility] [place] [facility] [address] [id number] [place] [address]- 9390 Nov, [facility] [place] [facility] [address] [id number] [place] [address]- 4377 Nov, [facility] [place] [facility] [address] [id number] [place] [address]- 5991 Nov, [facility] [place] [facility] [address] [id number] [place] [address]- 9048 Nov, [facility] [place] [facility] [address] [id number] [place] [address]- 6194 Nov, [facility] [place] [facility] [address] [id number] [place] [address]- 1390 Nov, [facility] [place] [facility] [address] [id number] [place] [address]- 8156 Nov, [facility] [place] [facility] [address] [id number] [place] [address]- 3152 Oct, [facility] [place] [facility] [address] [id number] [place] [address]- 6409 Oct, [facility] [place] [facility] [address] [id number] [place] [address]- 5837 September, [facility] [place] [facility] [address] [id number] [place] [address]- 5534 September, [facility] [place] [facility] [address] [id number] [place] [address]- 8021 September, [facility] [place] [facility] [address] [id number] [place] [address]- 7286 September, [facility] [place] [facility] [address] [id number] [place] [address] Aug, [facility] [place] [facility] [address] [id number] [place] [address] 14 Aug, 2013 [facility] [place] [facility] [address] [id number] [place] [address] 14 Aug, 2013 [facility] [place] [facility] [address] [id number] [place] [address] 24 Jul, 2013 [facility] [place] [facility] [address] [id number] [place] [address] 24 Jul, 2013 [facility] [place] [facility] [address] [id number] [place] [address] Jul, [facility] [place] [facility] [address] [id number] [place] [address] 14 Jul, 2013 [facility] [place] [facility] [address] [id number] [place] [address] May, [facility] [place] [facility] [address] [id number] [place] [address] 17 May, 2013 [facility] [place] [facility] [address] [id number] [place] [address] 17 May, 2013 [facility] [place] [facility] [address] [id number] [place] [address] 15 Mar, 2013 [facility] [place] [facility] [address] [id number] [place] [address] 15 Mar, 2013 [facility] [place] [facility] [address] [id number] [place] [address] 27[address] 13 Mar, 2013 [facility] [place] [facility] [address] [id number] [place] [address]- 75[address] 13 Mar, 2013 [facility] [place] [facility] [address] [id number] [place] [address] 16 Feb, 2013 [facility] [place] [facility] [address] [id number] [place] [address] 31[address] 16 Feb, 2013 [facility] [place] [facility] [address] [id number] [place] [address] Feb, [facility] [address] [id number] [place] [address] 16 Jan, 2013 [facility] [place] [facility] [address] [id number] [place] [address] Jan, [facility] [place] [facility] [address] [id number] [place] [address] Jan, [facility] [place] [facility] [address] [id number] [place] [address] Dec, [facility] [place] [facility] [address] [id number] [place] [address] Dec, [facility] [place] [facility] [address] [id number] [place] [address] Dec, [facility] [place] [facility] [address] [id number] [place] [address] Dec, [facility] [place] [facility] [address] [id number] [place] [address] Nov, [facility] [place] [facility] [address] [id number] [place] [address] Oct, [facility] [place] [facility] [address] [id number] [place] [address] Oct, [facility] [place] [facility] [address] [id number] [place] [address] September, [facility] [place] [facility] [address] [id number] [place] [address] September, [facility] [place] [facility] [address] [id number] [place] [address] September, [facility] [place] [facility] [address] [id number] [place] [address] Aug, [facility] [place] [facility] [address] [id number] [place] [address] Aug, [facility] [place] [facility] [address] [id number] [place] [address] 48[address] 17 Aug, 2012 [facility] [address] [id number] [place] [address] 09 Aug, 2012 [facility] [address] [id number] [place] [address] 26 Jul, 2012 [facility] [address] [id number] [place] [address] 68[address] 25 Jul, 2012 [facility] [address] [id number] [place] [address] 1444 21 Jul, 2012 [facility] [address] [id number] [place] [address] 15 Jul, 2012 [facility] [address] [id number] [place] [address]- [address] 14 Jul, 2012 [facility] [address] [id number] [place] [address] Jul, [facility] [address] [id number] [place] [address] 13 Jul, 2012 [facility] [address] [id number] [place] [address] Jun, [facility] [address] [id number] [place] [address] 39[address] Jun, [facility] [address] [id number] [place] [address] Jun, [facility] [address] [id number] [place] [address] Jun, [facility] [address] [id number] [place] [address] May, [facility] [address] [id number] [place] [address] May, [facility] [address] [id number] [place] [address] May, [facility] [place] [facility] [address] [id number] [place] [address] May, [facility] [place] [facility] [address] [id number] [place] [address] May, [facility] [place] [facility] [address] [id number] [place] [address] Apr, [facility] [place] [facility] [address] [id number] [place] [address] Apr, [facility] [place] [facility] [address] [id number] [place] [address] Mar, [facility] [place] [facility] [address] [id number] [place] [address] Mar, [facility] [place] [facility] [address] [id number] [place] [address] Mar, [facility] [place] [facility] [address] [id number] [place] [address] Mar, [facility] [place] [facility] [address] [id number] [place] [address] Mar, [facility] [place] [facility] [address] [id number], [place] [address] Mar, [facility] [place] [facility] [address] [id number], [place] [address] Mar, [facility] [place] [facility] [address] [id number], [place] [address] Mar, [facility] [place] [facility] [address] [id number] [place] [address] Mar, [facility] [place] [facility] [address] [id number], [place] [address] Mar, [facility] [place] [facility] [address] [id number] [place] [address] Feb, [facility] [place] [facility] [address] [id number] [place] [address] Feb, [facility] [place] [facility] [address] [id number] [place] [address] Feb, [facility] [place] [facility] [address] [id number] [place] [address] Feb, [facility] [place] [facility] [address] [id number] [place] [address] Feb, [facility] [place] [facility] [address] [id number] [place] [address] Feb, [facility] [place] [facility] [address] [id number] [place] [address] Feb, [facility] [place] [facility] [address] [id number] [place] [address] Jan, [facility] [place] [facility] [address] [id number] [place] [address] Jan, [facility] [place] [facility] [address] [id number] [place] [address] Dec, [facility] [place] [facility] [address] [id number] [place] [address] Dec, [facility] [place] [facility] [address] [id number] [place] [address] Dec, [facility] [place] [facility] [address] [id number] [place] [address] Dec, [facility] [place] [facility] [address] [id number] [place] [address] Dec, [facility] [place] [facility] [address] [id number] [place] [address] Dec, [facility] [place] [facility] [address] [id number] [place] [address] Nov, [facility] [place] [facility] [address] [id number] [place] [address] Nov, [facility] [place] [facility] [address] [id number] [place] [address] Nov, [facility] [place] [facility] [address] [id number] [place] [address] Nov, [facility] [place] [facility] [address] [id number] [place] [address] September, [facility] [place] [facility] [address] [id number] [place] [address] September, [facility] [place] [facility] [address] [id number] [place] [address] September, [facility] [place] [facility] [address] [id number] [place] [address] Jul, [facility] [place] [facility] [address] [id number] [place] [address] Jun, [facility] [place] [facility] [address] [id number] [place] [address] Jun, [facility] [place] [facility] [address] [id number] [place] [address] Jun, [facility] [place] [facility] [address] [id number] [place] [address] Apr, [facility] [place] [facility] [address] [id number] [place] [address] Mar, [facility] [place] [facility] [address] [id number] [place] [address] 15 Mar, 2011 [facility] [place] [facility] [address] [id number] [place] [address] Feb, [facility] [place] [facility] [address] [id number] [place] [address] Feb, [facility] [place] [facility] [address] [id number] [place] [address] Feb, [facility] [place] [facility] [address] [id number] [place] [address] Jul, [facility] [place] [address] [facility] [id number] [place] [address] Feb, IMMUNIZATIONS No Known Immunizations SOCIAL HISTORY Never Assessed REASON FOR VISIT PT PLAN OF CARE Activity Details Follow Up 1 Week Reason:F/U PT VITAL SIGNS MEDICATIONS Unknown Medications RESULTS No Results PROCEDURES Procedure Date Ordered Result Body Site THERAPEUTIC EXERCISES Apr 02, 2018 INSTRUCTIONS MEDICATIONS ADMINISTERED No Known Medications MEDICAL (GENERAL) HISTORY Type Description Date Medical History type II diabetes-dx'd 12/2010 Medical History dysfunctional uterine bleeding--endometrial bx 12/2010 Medical History asthma Medical History hypertension Medical History obesity Medical History anxiety Medical History autoimmune disease Surgical History x1 Hospitalization History child Hospitalization History Asthma
--- OUTSIDE RECORDS SUMMARY | 2018-05-09 22:29 | XMS REPORT ---
Author Author SUNNY WONG 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 Name Role Phone SUNNY WONG Unavailable PROBLEMS Type Condition ICD9-CM Code SCX73-QX Code Onset Dates Condition Status SNOMED Code Problem Dermatomyositis M33.90 Active 779744239 Problem Lumbago with sciatica, right side M54.41 Active 761286922 Problem Morbid (severe) obesity due to excess calories E66.01 Active 907687075 Problem Diabetes with other specified manifestations, type II or unspecified type, not stated as uncontrolled 250.80 Active 830894667 Problem Osteoarthritis of right knee, unspecified osteoarthritis type M17.9 Active 770573375 Problem Hypertension, unspecified type I10 Active 10902996 Problem Menopause Z78.0 Active 366130062 Problem Diabetes type 2, controlled E11.9 Active 27419842 Problem Facial droop R29.810 Active 93165221 Problem Gait disturbance R26.9 Active 34681738 Problem Other specified mental disorders due to known physiological condition F06.8 Active 33452762 Problem Frequent falls R29.6 Active 460371490 Problem Plantar warts B07.0 Active 85712104 Problem Arthritis M19.90 Active 8435546 Problem Anxiety F41.9 Active 70083284 Problem Other chronic pain G89.29 Active 77652021 Problem Controlled type 2 diabetes mellitus without complication, without long -term current use of insulin E11.9 Active 640655621 Problem Body mass index (BMI) of 45.0-49.9 in adult Z68.42 Active 105067220 Problem Allergic rhinitis due to pollen J30.1 Active 46555768 Problem Plantar wart of both feet B07.0 Active [id number] Problem Tachycardia with heart rate 121-140 beats per minute R00.0 Active 3083781 Problem Mood disorder F39 Active 75831957 Problem Lumbago with sciatica, left side M54.42 Active 294861048 Problem Enlarged thyroid gland E04.9 Active 0697670 ALLERGIES No Information ENCOUNTERS Encounter Location Date Diagnosis [facility] [place] [id number] [place] [address] 38749- 3578 Apr, [facility] [place] [id number] [place] [address] 15945- 4803 Mar, [facility] [place] [id number] [place] [address] 79103- 5734 Mar, [facility] [place] [id number] [place] [address] 07266- 4918 Mar, Pain in right knee M25.561 and Other chronic pain G89.29 [facility] [id number] [place] [address] 77459 -6724 Mar, Vaginal itching N89.8 ; Urinary tract infection, site not specified N39.0 ; Hematuria, unspecified R31.9 and Vaginal arabella B37.3 [facility] [place] [id number] [place] [address] 61718- 1551 Mar, Mood disorder F39 [facility] [id number] [place] [address] 91669- 0965 Feb, BMI 40.0-44.9, adult Z68.41 ; Diabetes type 2, controlled E11.9 ; Osteoarthritis of right knee, unspecified osteoarthritis type M17.9 ; Dermatomyositis M33.90 ; Hypertension, unspecified type I10 and Fatigue, unspecified type R53.83 [facility] [place] [id number] [address] Feb, [facility] [id number] [place] [address] 66772- 6442 Feb, BMI 45.0-49.9, adult Z68.42 [facility] [id number] [place] [address] 07560- 8236 Feb, Mood disorder F39 [facility] [place] [id number] [place] [address] 43750- 6688 Feb, [facility] [id number] [place] [address] 05536- 4512 Feb, Mood disorder F39 [facility] [id number] [place] [address] 77154- 9666 Feb, Other chronic pain G89.29 ; Anxiety F41.9 and Diabetes with other specified manifestations, type II or unspecified type, not stated as uncontrolled 250.80 [facility] [id number] [place] [address] 26774- 5743 Feb, BMI 40.0-44.9, adult Z68.41 [facility] [id number] [place] [address] 03805- 9139 Feb, Pain in right knee M25.561 and Other chronic pain G89.29 [facility] [id number] [place] [address] 74316- 2263 Feb, [facility] [id number] [place] [address] 87016- 9090 Feb, BMI 45.0-49.9, adult Z68.42 ; Gait disturbance R26.9 ; Other specified mental disorders due to known physiological condition F06.8 ; Weakness R53.1 ; Frequent falls R29.6 and Self-care deficit for bathing R46.0 [facility] [id number] [place] [address] 97964- 7508 Feb, Pain in right knee M25.561 and Other chronic pain G89.29 [facility] [id number] [place] [address] 41024- 2736 Jan, Mood disorder F39 [facility] [id number] [place] [address] 83670- 4785 27 Jan, 2018 BMI 45.0-49.9, adult Z68.42 and 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 [facility] [id number] [place] [address] 23711- 7413 Jan, [facility] [place] [id number] [place] [address] 53181- 3509 Jan, [facility] [place] [id number] [place] [address] 42021- 0706 Jan, [facility] [place] [id number] [place] [address] 42519- 1877 Jan, 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 [facility] [place] [address] 54685- 5864 Jan, [facility] [place] [id number] [place] [address] 64886- 5267 Jan, [facility] [place] [id number] [place] [address] 45135- 1403 Jan, [facility] [place] [id number] [place] [address] 31760- 0827 Jan, Allergic reaction to drug, initial encounter T78.40XA [facility] [place] [id number] [place] [address] 83642- 8199 17 Jan, 2018 BMI 45.0-49.9, adult Z68.42 and Facial droop R29.810 [facility] [place] [id number] [place] [address] 61864- 8144 14 Jan, 2018 Mood disorder F39 [facility] [place] [address] 16923- 5537 11 Jan, 2018 Dermatomyositis M33.90 and BMI 40.0-44.9, adult Z68.41 [facility] [place] [id number] [place] [address] 87850- 8968 10 Jan, 2018 [facility] [place] [id number] [place] [address] 70230- 0869 05 Jan, 2018 [facility] [place] [id number] [place] [address] 68342- 4094 04 Jan, 2018 Irritation of left eye H57.8 and BMI 40.0-44.9, adult Z68.41 [facility] [place] [id number] [place] [address] 94881- 9842 Dec, Diabetes type 2, controlled E11.9 [facility] [place] [address] 23624- 0093 Dec, Acute right ankle pain M25.571 [place] [address] 80749- 0857 Dec, Other chronic pain G89.29 ; Diabetes type 2, controlled E11.9 ; Gait disturbance R26.9 ; Weakness R53.1 and Muscle spasm M62.838 [facility] [address] 06740- 6066 Dec, Acute non-recurrent maxillary sinusitis J01.00 [facility] [address] 39682- 2393 Dec, [facility] [place] [id number] [place] [address] 32544- 1928 Dec, [facility] [address] 33262- 7145 Dec, Acute non-recurrent maxillary sinusitis J01.00 [facility] [id number] [place] [address] 56328- 6191 Dec, Lumbago with sciatica, right side M54.41 and Lupus erythematosus L93.0 [facility] [place] [id number] [place] [address] 57546- 4987 Dec, Mood disorder F39 [facility] [place] [address] 84995- 2612 Dec, Mood disorder F39 [place] [address] 22994- 1468 Dec, [facility] [place] [address] 89864- 9840 Dec, Acute right ankle pain M25.571 [facility] [place] [id number] [place] [address] 66935- 1998 Nov, Lumbar radiculopathy M54.16 [facility] [place] [id number] [place] [address] 27583- 7745 Nov, [facility] [place] [id number] [place] [address] 48439- 7522 Nov, Mood disorder F39 [facility] [place] [id number] [place] [address] 99823- 0553 Nov, Lumbago with sciatica, right side M54.41 and Other chronic pain G89.29 [facility] [place] [id number] [place] [address] 65240- 1737 Nov, Acute right ankle pain M25.571 [facility] [place] [id number] [place] [address] 44956- 7115 Nov, [facility] [place] [id number] [place] [address] 72943- 1318 Oct, [facility] [place] [id number] [place] [address] 98259- 9081 Oct, Plantar wart of both feet B07.0 [facility] [place] [id number] [place] [address] 98873- 8624 Oct, [facility] [place] [id number] [place] [address] 34872- 2227 Oct, Acute right ankle pain M25.571 and Plantar wart of both feet B07.0 [facility] [place] [id number] [place] [address] 89160- 7563 September, Other chronic pain G89.29 [facility] [place] [id number] [place] [address] 78384- 5169 September, Other chronic pain G89.29 [facility] [place] [address] 42156- 6702 September, Other chronic pain G89.29 [place] [address] 73560- 0195 Aug, Mood disorder F39 [facility] [address] 76610- 4221 Aug, Other chronic pain G89.29 ; Controlled type 2 diabetes mellitus without complication, without long-term current use of insulin E11.9 ; Low back pain M54.5 and Tinea corporis B35.4 [facility] [address] 37510- 7615 Aug, Mood disorder F39 and Anxiety F41.9 [facility] [address] 95187- 3127 Aug, Mood disorder F39 and Anxiety F41.9 [facility] [address] 20397- 1736 Jul, [facility] [address] 47930 -0183 Jul, Scabies B86 and BMI 45.0-49.9, adult Z68.42 [facility] [address] 01974- 9556 Jul, [facility] [address] 39372- 2133 Jul, Mood disorder F39 and Anxiety F41.9 [facility] [address] 78120- 2211 Jul, [facility] [address] 18143 -5318 27 Jun, 2017 Bronchitis J40 ; Dark urine R82.99 and BMI 45.0-49.9, adult Z68.42 [place] [address] 57466- 5570 14 Jun, 2017 Acute pain of right shoulder M25.511 and Acute pain of right knee M25.[id number] [place] [address] 96979- 8439 May, BMI 40.0-44.9, adult Z68.41 ; Controlled type 2 diabetes mellitus without complication, without long-term current use of insulin E11.9 ; Muscle cramping R25.2 ; Hot flashes R23.2 ; Mood disorder F39 ; Anxiety F41.9 and Morbid (severe) obesity due to excess calories E66.01 [place] [place] [id number] [place] [address] 85976- 5068 May, BMI 40.0-44.9, adult Z68.41 ; Controlled type 2 diabetes mellitus without complication, without long-term current use of insulin E11.9 ; Muscle cramping R25.2 and Hot flashes R23.2 [place] [id number] [place] [address] 60794- 1168 May, Tachycardia with heart rate 121-140 beats per minute R00.0 ; Morbid (severe) obesity due to excess calories E66.01 ; Diabetes type 2, controlled E11.9 and Enlarged thyroid gland E04.[id number] [place] [address] 34095- 8742 25 May, 2017 Encounter for well woman [...] Dysuria R30.0 and Screening breast examination Z12.31 [place] [id number] [place] [address] 11904- 1620 Apr, Mood disorder F39 ; Other chronic pain G89.29 and Anxiety F41.9 [place] [id number] [place] [address] 29739- 6525 Apr, Lumbago with sciatica, left side M54.42 and Other chronic pain G89.29 [facility] [place] [id number] [place] [address] 58309- 9878 Apr, Lupus erythematosus L93.0 [facility] [place] [id number] [place] [address] 29687- 0248 Mar, Plantar wart of both feet B07.0 [facility] [place] [id number] [place] [address] 22592- 4585 Mar, Lupus erythematosus L93.0 and Sinus drainage J34.89 [facility] [place] [id number] [place] [address] 39373- 2455 Mar, Mood disorder F39 ; Other chronic pain G89.29 and Anxiety F41.9 [facility] [place] [address] 17031- 4041 Mar, Mood disorder F39 ; Arthritis M19.90 and Plantar warts B07.0 [facility] [place] [id number] [place] [address] 72789- 5860 Feb, Lupus erythematosus L93.0 [facility] [place] [id number] [place] [address] 04212- 0010 Feb, Other chronic pain G89.29 [facility] [place] [id number] [place] [address] 84036- 5232 Feb, Mood disorder F39 and Anxiety F41.9 [facility] [place] [id number] [place] [address] 27319- 7737 Jan, [facility] [place] [id number] [place] [address] 71106- 3916 Jan, Mood disorder F39 [facility] [place] [id number] [place] [address] 95248- 7683 Dec, Nail, ingrown L60.0 [facility] [place] [id number] [place] [address] 59216- 6439 Dec, Nail, ingrown L60.0 [facility] [place] [id number] [place] [address] 28988- 5951 Nov, Mood disorder F39 and Anxiety F41.9 [facility] [place] [id number] [place] [address] 39351- 0704 Nov, Sinus drainage J34.89 ; Hot flashes R23.2 ; Anxiety F41.9 and Diabetes type 2, controlled E11.9 [facility] [place] [id number] [place] [address] 88657- 9680 Nov, Nail, ingrown L60.0 [facility] [place] [id number] [place] [address] 36043- 0528 Oct, Anxiety F41.9 and Mood disorder F39 [facility] [place] [id number] [place] [address] 23541- 3778 Oct, Nail, ingrown L60.0 and Anxiety F41.9 [facility] [place] [id number] [place] [address] 32391- 6106 Oct, Lupus erythematosus L93.0 [facility] [place] [id number] [place] [address] 76810- 4084 September, [facility] [place] [id number] [place] [address] 18944- 2140 September, [facility] [place] [id number] [place] [address] 86465- 3475 September, Lupus erythematosus L93.0 [facility] [place] [id number] [place] [address] 22364- 7792 Aug, [facility] [place] [id number] [place] [address] 49773- 0570 Aug, Mood disorder F39 and Anxiety F41.9 [facility] [place] [id number] [place] [address] 44192- 5297 Aug, Lupus erythematosus L93.0 ; Diabetes type 2, controlled E11.9 and Localized edema R60.0 [place] [id number] [place] [address] 24128- 0299 Aug, [place] [id number] [place] [address] 00785- 1098 Jul, Anxiety F41.9 and Mood disorder F39 [place] [id number] [place] [address] 23736- 1862 Jul, Diabetes type 2, controlled E11.9 [facility] [id number] [place] [address] 58243- 5750 Jun, Anxiety F41.9 [place] [id number] [place] [address] 67428- 5930 May, [place] [address] 56725- 4942 May, [place] [id number] [place] [address] 97951- 8719 May, Nausea R11.0 ; Other chronic pain G89.29 and Pain in right knee M25.561 [place] [id number] [place] [address] 33375- 3062 May, [place] [id number] [place] [address] 42526- 3326 Apr, Tear of medial meniscus of right knee, current, unspecified tear type, subsequent encounter S83.241D and Tear of lateral meniscus of right knee, current, unspecified tear type, subsequent encounter S83.281D [place] [id number] [place] [address] 78221- 4887 Apr, Anxiety F41.9 and Mood disorder F39 [place] [id number] [place] [address] 38921- 9138 Apr, Anxiety F41.9 [place] [id number] [place] [address] 46556- 2438 Apr, [facility] [place] [id number] [place] [address] 52956- 6987 Mar, [facility] [place] [id number] [place] [address] 85042- 4230 Mar, Lupus erythematosus L93.0 and Diabetes type 2, controlled E11.9 [facility] [place] [address] 21214- 9427 Mar, Mood disorder F39 [facility] [place] [id number] [place] [address] 24230- 4076 Mar, Tear of lateral meniscus of right knee, current, unspecified tear type, initial encounter S83.281A and Osteoarthritis of right knee, unspecified osteoarthritis type M17.9 [facility] [place] [id number] [place] [address] [phone]- [phone] Mar, [facility] [place] [id number] [place] [address] [phone] Feb, Mood disorder F39 [facility] [place] [id number] [place] [address] [phone] Feb, Rash R21 [facility] [place] [id number] [place] [address] [phone]- [phone] Feb, [facility] [place] [id number] [place] [address] 37301- [phone] Jan, Other chronic pain G89.29 and Muscle spasm M62.838 [facility] [place] [id number] [place] [address] [phone]- 3515 Jan, Mood disorder F39 [facility] [place] [id number] [place] [address] [phone]- 3581 Jan, Pain in right knee M25.561 ; Other chronic pain G89.29 and Muscle spasm M62.838 [facility] [place] [id number] [place] [address] [phone]- [phone] Dec, [id number] [place] [address] [phone] Dec, [place] [id number] [place] [address] [phone] Nov, [place] [id number] [place] [address] [phone]- [phone] Nov, Mood disorder F39 [place] [id number] [place] [address] [phone]- [phone] Nov, Diabetes type 2, controlled E11.9 ; Bronchitis J40 ; Edema, unspecified type R60.9 ; Weight gain R63.5 and Right knee pain, unspecified chronicity M25.561 [place] [id number] [place] [address] [phone]- [phone] Oct, Mood disorder F39 [place] [id number] [place] [address] 99594- 3755 Oct, Lupus erythematosus L93.0 and Bilateral edema of lower extremity R60.0 [place] [id number] [place] [address] [phone]- [phone] Oct, Mood disorder F39 and Anxiety F41.9 [place] [id number] [place] [address] [phone]- [phone] September, Mood disorder F39 ; Anxiety F41.9 and Anger reaction R45.4 [place] [id number] [place] [address] 15456- 0951 September, Diabetes type 2, controlled E11.9 ; Edema, unspecified type R60.9 and Fatigue, unspecified type R53.83 [place] [id number] [place] [address] 61346- [phone] Aug, Mood disorder F39 and Generalized anxiety disorder F41.1 [place] [id number] [place] [address] [phone]- [phone] Aug, Diabetes type 2, controlled E11.9 ; Sinusitis J32.9 and Mood disorder F39 [facility] [place], [facility] [id number] [address] 15 Aug, 2015 Lupus erythematosus L93.0 [facility] [place] [id number] [place] [address] 22387- 2455 14 Aug, 2015 [facility] [place] [id number] [place] [address] 73486- 5664 07 Aug, 2015 [facility] [place] [id number] [place] [address] 61518- 3128 25 Jul, 2015 Diabetes type 2, controlled E11.9 [facility] [place] [id number] [place] [address] 77440- 5424 Jul, Mood disorder F39 and Depression F32.9 [facility] [place] [id number] [place] [address] 54361- 7555 Jul, Lupus erythematosus L93.0 and Diabetes type 2, controlled E11.9 [facility] [place] [id number] [place] [address] 52171- 9271 Jul, Mood disorder F39 and Anxiety F41.9 [facility] [place] [id number] [place] [address] 16071- 1655 Jul, [facility] [place] [id number] [address] 7874 Jul, [facility] [place] [id number] [place] [address] 48716- 0195 Jun, Mood disorder F39 and Anxiety F41.9 [facility] [place] [id number] [place] [address] 34259- 8260 Jun, Mood disorder F39 [facility] [place] [address], [place] [address] 7754 18 Jun, 2015 [facility] [place] [id number] [place] [address] 04240- 1539 15 Jun, 2015 [facility] [place] [address], [place] [address] 6623 Jun, Mood disorder F39 [facility] [place] [id number] [place] [address] 48160- 2176 Jun, [facility] [place] [id number] [place] [address] 69743- 5420 May, [facility] [place] [id number] [place] [address] 53064- 0203 May, [facility] [place] [id number] [place] [address] 29404- 9658 May, [facility] [place] [id number] [place] [address] 94625- 2703 May, [facility] [place] [id number] [place] [address] 85206- 2982 May, Anxiety F41.9 ; Dermatomyositis M33.90 and Diabetes type 2, controlled E11.9 [facility] [place] [facility] [id number], [place] [address] May, Sinusitis J32.9 and Cough R05 [facility] [place] [id number] [place] [address] 03730- 6414 May, Mood disorder F39 [facility] [place] [id number] [place] [address] 67878- 4923 May, Adjustment disorder with mixed anxiety and depressed mood F43.23 [facility] [place] [id number], [place] [address]- 4150 Apr, [facility] [place] [id number] [place] [address] 00606- 5151 Apr, [facility] [place] [id number] [place] [address] 65074- 7984 Apr, Generalized anxiety disorder F41.1 and Mood disorder F39 [facility] [place] [id number] [place] [address] 55321- 7993 Mar, [facility] [place] [id number] [place] [address] 72265- 5603 Mar, [facility] [place] [id number] [place] [address] 50030- 3303 Mar, [facility] [place] [id number] [place] [address] 69954- 3462 Mar, Mood disorder F39 [facility] [place] [id number] [place] [address] 29904- 0533 Feb, [facility] [place] [id number] [place] [address] 62188- 1663 Feb, Diabetes E11.9 and Bronchitis J40 [facility] [place] [id number] [place] [address] 89387- 6005 Feb, [facility] [place] [id number] [place] [address] 27778- 9395 Feb, [facility] [place] [id number] [place] [address] 27316- 3031 Feb, Major depression, recurrent, full remission F33.42 and KELLY ( generalized anxiety disorder) F41.1 [facility] [place] [id number] [place] [address] 97306- 7809 Feb, [facility] [place] [id number] [place] [address] 74606- 6815 Feb, Single major depressive episode, in partial or unspecified remission F32.5 [facility] [place] [id number] [place] [address] 56522- 1840 Jan, Fatigue 780.79 [facility] [place] [id number] [place] [address] 26522- 5644 Jan, [facility] [place] [id number] [place] [address] 50174- 4274 Jan, Diabetes with other specified manifestations, type II or unspecified type, not stated as uncontrolled 250.80 [id number], [place] [address]- 9099 Jan, [address] [id number] [place] [address] 92637- 8405 Dec, Hot flashes 627.2 ; Memory loss 780.93 and Joint pain 719.40 [address] [facility] [id number] [place] [address] 44780- 7811 Dec, Major depression, recurrent 296.30 ; Generalized anxiety disorder 300.02 ; Adjustment disorder with depressed mood 309.0 and No condition on [place] II V71.09 [address] [facility] [id number] [place] [address] 61614- 2277 Dec, [address] [facility] [id number] [place] [address] 20648- 7094 Nov, Cognitive and neurobehavioral dysfunction 294.9 ; Major depressive disorder, recurrent episode, moderate degree 296.32 and Anxiety state , unspecified 300.00 [address] [id number] [place] [address] 60444- 5606 Nov, [id number] [place] [address] 46162- 0255 Nov, Bronchitis 490 and Diabetes with other specified manifestations, type II or unspecified type, not stated as uncontrolled 250.80 [id number] [place] [address] 41157- 5292 Nov, Major depressive disorder, recurrent episode, moderate 296.32 and Anxiety disorder, unspecified 300.00 [id number] [place] [address] 01917- 5874 Nov, Anxiety, generalized 300.02 ; Intermittent explosive disorder 312.34 ; No condition on [place] II V71.09 and No condition on axis III V71.09 [id number] [place] [address] 41238- 1133 Oct, Diabetes with other specified manifestations, type II or unspecified type, not stated as uncontrolled 250.80 ; Urinary tract infection, site not specified 599.0 and Bronchitis 490 [id number] [place] [address] 24716- 7843 Oct, Intermittent explosive disorder 312.34 ; Bipolar 1 disorder , depressed, moderate 296.52 ; Major depression, chronic 296.20 ; No condition on [place] II V71.09 and No condition on axis III V71.09 [id number] [place] [address] 14084- 6437 Oct, Major depressive disorder, recurrent episode, moderate 296.32 ; Anxiety state 300.00 ; Cognitive decline 294.9 and No condition on [place] II V71.09 [id number] [place] [address] 94687- 2346 Oct, [id number] [place] [address] 56771- 6733 Oct, Major depressive disorder, recurrent episode, moderate 296.32 ; Anxiety disorder, unspecified 300.00 and Persistent disorder of initiating or maintaining sleep 307.42 [id number] [place] [address] 71923- 9324 September, Diabetes with other specified manifestations, type II or unspecified type, not stated as uncontrolled 250.80 ; Memory loss 780.93 and Cognitive complaints 799.59 [id number], [place] [address]- 9262 September, No condition on [place] II V71.09 ; Major depression, recurrent 296.30 and Persistent mood [affective] disorder, unspecified 296.90 [address], [place] [address]- 7097 Aug, [id number] [place] [address] 31604- 2988 Aug, [id number] [place] [address] 91292- 2055 Aug, [id number] [place] [address] 57121- 0043 Jul, 2014 [facility] [place] [facility] [address] [id number] [place] [address]- 8213 Jul, 2014 [facility] [place] [facility] [address] [id number] [place] [address]- 4479 Jul, 2014 [facility] [place] [facility] [address] [facility] [id number] [place] [address]- 6801 Jul, 2014 [facility] [place] [facility] [address] [facility] [id number] [place] [address]- 6374 Jul, 2014 [facility] [place] [facility] [address] [id number] [place] [address]- 5322 Jun, 2014 [facility] [place] [facility] [address] [facility] [id number] [place] [address]- 0802 Jun, 2014 [facility] [place] [facility] [address] [facility] [id number] [place] [address]- 3196 Jun, 2014 [facility] [place] [facility] [address] [facility] [id number] [place] [address]- 5582 Jun, 2014 [facility] [place] [facility] [address] [facility] [id number] [place] [address]- 1416 Jun, 2014 [facility] [place] [facility] [address] [facility] [id number] [place] [address]- 4173 Jun, 2014 [facility] [place] [facility] [address] [facility] [id number] [place] [address]- 3679 Jun, 2014 [facility] [place] [facility] [address] [facility] [id number] [address]- 2519 Jun, 2014 [facility] [place] [facility] [address] [facility] [id number] [place] [address]- 0347 Jun, 2014 [facility] [place] [facility] [address] [facility] [id number], [place] [address]- 3263 Jun, 2014 [facility] [place] [facility] [address] [facility] [id number] [place] [address]- 8501 Jun, [facility] [address] [id number] [place] [address]- 8299 Jun, [facility] [place] [facility] [address] [id number] [place] [address]- 5326 Jun, [facility] [place] [facility] [address] [id number] [place] [address]- 8343 May, [facility] [place] [facility] [address] [id number] [place] [address]- 4986 May, [facility] [place] [facility] [address] [id number] [place] [address]- 9596 Apr, [facility] [place] [facility] [address] [id number] [place] [address]- 2616 Apr, [facility] [place] [facility] [address] [id number] [place] [address]- 7360 Apr, [facility] [place] [facility] [address] [id number] [place] [address]- 9294 Apr, [facility] [place] [facility] [address] [id number] [place] [address]- 9745 Apr, [facility] [place] [facility] [address] [id number] [place] [address]- 7016 Apr, [facility] [place] [facility] [address] [id number] [place] [address]- 9371 Apr, [facility] [place] [facility] [address] [id number] [place] [address]- 0478 Apr, [facility] [place] [facility] [address] [id number] [place] [address]- 4304 Apr, [facility] [place] [facility] [address] [id number] [place] [address]- 6403 Apr, [facility] [place] [facility] [address] [id number] [place] [address]- 5995 Apr, [facility] [place] [facility] [address] [id number] [place] [address]- 0265 Apr, [facility] [place] [facility] [address] [id number] [place] [address]- 6106 Apr, [facility] [place] [facility] [address] [id number] [place] [address]- 2652 Apr, [facility] [place] [facility] [address] [id number] [place] [address]- 3601 Apr, [facility] [place] [facility] [address] [id number] [place] [address]- 6874 Apr, [facility] [place] [facility] [address] [id number] [place] [address]- 0375 Apr, [facility] [place] [facility] [address] [id number] [place] [address]- 8032 Apr, [facility] [place] [facility] [address] [id number] [place] [address]- 7691 Apr, [facility] [place] [facility] [address] [id number] [place] [address]- 5786 Apr, [facility] [place] [facility] [address] [id number] [place] [address]- 8277 Mar, [facility] [place] [facility] [address] [id number] [place] [address]- 0171 Mar, [facility] [place] [facility] [address] [id number] [place] [address]- 0959 Mar, [facility] [place] [facility] [address] [id number] [place] [address]- 8007 Mar, [facility] [place] [facility] [address] [id number] [place] [address]- 8424 Mar, [facility] [place] [facility] [address] [id number] [place] [address]- 1206 Mar, [facility] [place] [facility] [address] [id number] [place] [address]- 3024 Mar, [facility] [place] [facility] [address] [id number] [place] [address]- 6805 Mar, [facility] [place] [facility] [address] [id number] [place] [address]- 5970 Mar, [facility] [place] [facility] [address] [id number] [place] [address]- 2439 Mar, [facility] [place] [facility] [address] [id number] [place] [address]- 8453 Mar, [facility] [place] [facility] [address] [id number] [place] [address]- 5926 Mar, [facility] [place] [facility] [address] [id number] [place] [address]- 4627 Mar, [facility] [place] [facility] [address] [id number] [place] [address]- 9563 Feb, [facility] [place] [facility] [address] [id number] [place] [address]- 2854 Feb, [facility] [place] [facility] [address] [id number] [place] [address]- 0314 Feb, [facility] [place] [facility] [address] [id number] [place] [address]- 4842 Feb, [facility] [place] [facility] [address] [id number] [place] [address]- 8230 Feb, [facility] [place] [facility] [address] [id number] [place] [address]- 8238 Feb, [facility] [place] [facility] [address] [id number] [place] [address]- 6791 Feb, [facility] [place] [facility] [address] [id number] [place] [address]- 6121 Feb, [facility] [place] [facility] [address] [id number] [place] [address]- 5685 Feb, [facility] [place] [facility] [address] [id number] [place] [address]- 9798 Feb, [facility] [place] [facility] [address] [id number] [place] [address]- 4716 13 Feb, 2014 [facility] [place] [facility] [address] [id number] [place] [address]- 3089 Feb, [facility] [place] [facility] [address] [id number] [place] [address]- 4835 10 Feb, 2014 [facility] [place] [facility] [address] [id number] [place] [address]- 9939 Feb, [facility] [place] [facility] [address] [id number] [place] [address]- 3720 07 Feb, 2014 [facility] [place] [facility] [address] [id number] [place] [address]- 0625 10 Jan, 2013 [facility] [place] [facility] [address] [id number] [place] [address]- 0930 08 Jan, 2013 [facility] [place] [facility] [address] [id number] [place] [address]- 8461 08 Jan, 2013 [facility] [place] [facility] [address] [id number] [place] [address]- 0195 08 Jan, 2013 [facility] [place] [facility] [address] [id number] [place] [address]- 7850 08 Jan, 2013 [facility] [place] [facility] [address] [id number] [place] [address]- 2240 Dec, [facility] [place] [facility] [address] [id number], [place] [address]- 3381 Dec, [facility] [place] [facility] [address] [id number] [place] [address]- 3068 Dec, [facility] [place] [facility] [address] [id number] [place] [address]- 1823 Dec, [facility] [place] [facility] [address] [id number] [place] [address]- 2280 Nov, [facility] [place] [facility] [address] [id number] [place] [address]- 9899 Nov, [facility] [address] [id number] [place] [address]- 3997 Nov, [facility] [place] [facility] [address] [id number] [place] [address]- 2215 Nov, [facility] [place] [facility] [address] [id number] [place] [address]- 9760 Nov, [facility] [place] [facility] [address] [id number] [place] [address]- 6791 Nov, [facility] [place] [facility] [address] [id number] [place] [address]- 9983 Nov, [facility] [place] [facility] [address] [id number] [place] [address]- 5241 Nov, [facility] [place] [facility] [address] [id number] [place] [address]- 9118 Nov, [facility] [place] [facility] [address] [id number] [place] [address]- 4663 Nov, [facility] [place] [facility] [address] [id number] [place] [address]- 2242 Oct, [facility] [place] [facility] [address] [id number] [place] [address]- 3612 Oct, [facility] [place] [facility] [address] [id number] [place] [address]- 9515 September, [facility] [place] [facility] [address] [id number] [place] [address]- 9645 September, [facility] [place] [facility] [address] [id number] [place] [address]- 0469 September, [facility] [place] [facility] [address] [id number] [place] [address]- 7254 September, [facility] [place] [facility] [address] [id number] [place] [address]- 7243 Aug, [facility] [place] [facility] [address] [id number] [place] [address]- 2863 14 Aug, 2013 [facility] [place] [facility] [address] [id number] [place] [address]- 8158 14 Aug, 2013 [facility] [place] [facility] [address] [id number] [place] [address]- 4989 24 Jul, 2013 [facility] [place] [facility] [address] [id number] [place] [address]- 8192 24 Jul, 2013 [facility] [place] [facility] [address] [id number] [place] [address]- 8416 14 Jul, 2013 [facility] [place] [facility] [address] [id number] [place] [address]- 2800 14 Jul, 2013 [facility] [place] [facility] [address] [id number] [place] [address]- 0287 May, [facility] [place] [facility] [address] [id number] [place] [address]- 9759 17 May, 2013 [facility] [place] [facility] [address] [id number] [place] [address]- 0872 17 May, 2013 [facility] [place] [facility] [address] [id number] [place] [address] 15 Mar, 2013 [facility] [place] [facility] [address] [id number] [place] [address] 15 Mar, 2013 [facility] [place] [facility] [address] [id number], [place] [address] 13 Mar, 2013 [facility] [place] [facility] [address] [id number] [place] [address] 13 Mar, 2013 [facility] [place] [facility] [address] [id number] [place] [address] 16 Feb, 2013 [facility] [place] [facility] [address] [id number], [place] [address] 16 Feb, 2013 [facility] [place] [facility] [address] [id number], [place] [address] Feb, [facility] [address] [id number] [place] [address] 16 Jan, 2013 [facility] [place] [facility] [address] [id number] [place] [address] Jan, [facility] [place] [facility] [address] [id number] [place] [address] Jan, [facility] [place] [facility] [address] [id number] [place] [address] Dec, [facility] [place] [facility] [address] [id number] [place] [address] Dec, [facility] [place] [facility] [address] [id number] [place] [address] Dec, [facility] [place] [facility] [address] [id number] [place] [address] Dec, [facility] [place] [facility] [address] [id number] [place] [address] Nov, [facility] [place] [facility] [address] [id number] [place] [address] Oct, [facility] [place] [facility] [address] [id number] [place] [address] Oct, [facility] [place] [facility] [address] [id number] [place] [address] September, [facility] [place] [facility] [address] [id number] [place] [address] September, [facility] [place] [facility] [address] [id number] [place] [address] September, [facility] [place] [facility] [address] [id number] [place] [address] Aug, [facility] [place] [facility] [address] [id number] [place] [address] Aug, [facility] [place] [facility] [address] [id number] [place] [address] 1636 17 Aug, 2012 [facility] [address] [id number] [place] [address]69 09 Aug, 2012 [facility] [address] [id number] [place] [address] 26 Jul, 2012 [facility] [address] [id number] [place] [address] 25 Jul, 2012 [facility] [address] [id number] [place] [address] Jul, [facility] [address] [id number] [place] [address] 15 Jul, 2012 [facility] [address] [id number] [place] [address] 16[address] 14 Jul, 2012 [facility] [address] [id number] [place] [address] Jul, [facility] [address] [id number] [place] [address] Jul, [facility] [address] [id number] [place] [address] Jun, [facility] [address] [id number] [place] [address] Jun, [facility] [address] [id number] [place] [address] Jun, [facility] [address] [id number] [place] [address] Jun, [facility] [place] [facility] [address] [id number] [place] [address] May, [facility] [place] [facility] [address] [id number] [place] [address] May, [facility] [place] [facility] [address] [id number] [place] [address] May, [facility] [place] [facility] [address] [id number] [place] [address] May, [facility] [place] [facility] [address] [id number] [place] [address] 47[address] May, [facility] [place] [facility] [address] [facility] [id number] [place] [address] Apr, [facility] [place] [facility] [address] [id number] [place] [address] Apr, [facility] [place] [facility] [address] [id number] [place] [address] Mar, [facility] [place] [facility] [address] [id number] [place] [address] Mar, [facility] [place] [facility] [address] [id number] [place] [address] Mar, [facility] [place] [facility] [address] [id number] [place] [address] Mar, [facility] [place] [facility] [address] [address] [id number] [place] [address] Mar, [facility] [place] [facility] [address] [id number] [place] [address] Mar, [facility] [place] [facility] [address] [id number], [place] [address] Mar, [facility] [place] [facility] [address] [id number], [place] [address] Mar, [facility] [place] [facility] [address] [id number] [place] [address] Mar, [facility] [place] [facility] [address] [facility] [id number], [place] [address] Mar, [facility] [place] [facility] [address] [id number] [place] [address] Feb, [facility] [place] [facility] [address] [id number] [place] [address] Feb, [facility] [place] [facility] [address] [id number] [place] [address] Feb, [facility] [place] [facility] [address] [id number] [place] [address] Feb, [facility] [place] [facility] [address] [id number] [place] [address] Feb, [facility] [place] [facility] [address] [id number] [place] [address] Feb, [facility] [place] [facility] [address] [id number] [place] [address] Feb, [facility] [place] [facility] [address] [id number] [place] [address] Jan, [facility] [place] [facility] [address] [id number] [place] [address] Jan, [facility] [place] [facility] [address] [id number] [place] [address] Dec, [facility] [place] [facility] [address] [id number] [place] [address] Dec, [facility] [place] [facility] [address] [id number] [place] [address] Dec, [facility] [place] [facility] [address] [id number] [place] [address] Dec, [facility] [place] [facility] [address] [id number] [place] [address] Dec, [facility] [place] [facility] [address] [id number] [place] [address] Dec, [facility] [place] [facility] [address] [id number] [place] [address] Nov, [facility] [place] [facility] [address] [id number] [place] [address] Nov, [facility] [place] [facility] [address] [id number] [place] [address] Nov, [facility] [place] [facility] [address] [id number] [place] [address] Nov, [facility] [place] [facility] [address] [id number] [place] [address] September, [facility] [place] [facility] [address] [id number] [place] [address] September, [facility] [place] [facility] [address] [id number] [place] [address] September, [facility] [place] [facility] [address] [id number] [place] [address] Jul, [facility] [place] [facility] [address] [id number] [place] [address] Jun, [facility] [place] [facility] [address] [id number] [place] [address] Jun, [facility] [place] [facility] [address] [id number] [place] [address] Jun, [facility] [place] [facility] [address] [id number] [place] [address] Apr, [facility] [place] [facility] [address] [id number] [place] [address] Mar, [facility] [place] [facility] [address] [id number] [place] [address] 15 Mar, 2011 [facility] [place] [facility] [address] [id number] [place] [address] Feb, [facility] [place] [facility] [address] [id number] [place] [address] Feb, [facility] [place] [facility] [address] [id number] [place] [address] Feb, [facility] [place] [facility] [address] [id number] [place] [address] Jul, [facility] [place] [address] [facility] [id number] [place] [address] Feb, IMMUNIZATIONS No Known Immunizations SOCIAL HISTORY Never Assessed REASON FOR VISIT f/u PLAN OF CARE Activity Details Follow Up Next available Reason: F/U VITAL SIGNS MEDICATIONS Unknown Medications RESULTS No Results PROCEDURES Procedure Date Ordered Result Body Site Psychotherapy, patient &/family, 45 minutes, established patient Mar 29, 2018 INSTRUCTIONS MEDICATIONS ADMINISTERED No Known Medications MEDICAL (GENERAL) HISTORY Type Description Date Medical History type II diabetes-dx'd 12/2010 Medical History dysfunctional uterine bleeding--endometrial bx 12/2010 Medical History asthma Medical History hypertension Medical History obesity Medical History anxiety Medical History autoimmune disease Surgical History x1 Hospitalization History child Hospitalization History Asthma
[2018-05-09] MEDS ORDERED: inSUlin (REGULAR) HUMAN 1 UNIT/0.01 ML (CHARGE PER UNIT) IV ONE (22:30)
[2018-05-09] MEDS ORDERED: NS IV 1000 ML 1,000 ML IV ONE ×2 (22:30→23:02)
--- OUTSIDE RECORDS SUMMARY | 2018-05-09 22:30 | XMS REPORT ---
Author Author ROBIN PAGAN [facility] Address [address] [place] [address] Care Team Providers Care Stadium Manager Name Role Phone ROBIN PAGAN Unavailable PROBLEMS Type Condition ICD9-CM Code [id number] Code Onset Dates Condition Status SNOMED Code Problem Dermatomyositis M33.90 Active 807351042 Problem Lumbago with sciatica, right side M54.41 Active 392290044 Problem Morbid (severe) obesity due to excess calories E66.01 Active 525030186 Problem Diabetes with other specified manifestations, type II or unspecified type, not stated as uncontrolled 250.80 Active 092627743 Problem Osteoarthritis of right knee, unspecified osteoarthritis type M17.9 Active 140182103 Problem Hypertension, unspecified type I10 Active 07131788 Problem Menopause Z78.0 Active 441432129 Problem Diabetes type 2, controlled E11.9 Active 24072890 Problem Facial droop R29.810 Active 98018111 Problem Gait disturbance R26.9 Active 60580913 Problem Other specified mental disorders due to known physiological condition F06.8 Active 39530382 Problem Frequent falls R29.6 Active 047923722 Problem Plantar warts B07.0 Active 06886902 Problem Arthritis M19.90 Active 9942543 Problem Anxiety F41.9 Active 66238839 Problem Other chronic pain G89.29 Active 29085398 Problem Controlled type 2 diabetes mellitus without complication, without long -term current use of insulin E11.9 Active 736984832 Problem Body mass index (BMI) of 45.0-49.9 in adult Z68.42 Active 586613470 Problem Allergic rhinitis due to pollen J30.1 Active 09912665 Problem Plantar wart of both feet B07.0 Active [id number] Problem Tachycardia with heart rate 121-140 beats per minute R00.0 Active 7496900 Problem Mood disorder F39 Active 39874345 Problem Lumbago with sciatica, left side M54.42 Active 576667193 Problem Enlarged thyroid gland E04.9 Active 2235605 ALLERGIES Substance Reaction Event Type Date Status Fluarix Quadrivalent vomiting Drug Allergy Mar, Active Zoloft makes very angry Drug Allergy Mar, Active Fluarix vomiting Drug Allergy Mar, Active Aspirin rash Drug Allergy Mar, Active Latex, Natural Rubber rash Non Drug Allergy Mar, Active ENCOUNTERS Encounter Location Date Diagnosis [facility] [id number] [place] [address] 12190- 8317 Apr, [facility] [id number] [place] [address] 94161- 5872 Mar, [facility] [id number] [place] [address] 79173- 9034 Mar, [facility] [id number] [place] [address] 06616 -6192 Mar, Vaginal itching N89.8 ; Urinary tract infection, site not specified N39.0 ; Hematuria, unspecified R31.9 and Vaginal arabella B37.3 [facility] [id number] [place] [address] 84877- 9929 Mar, Mood disorder F39 [facility] [id number] [place] [address] 46356- 9031 Feb, BMI 40.0-44.9, adult Z68.41 ; Diabetes type 2, controlled E11.9 ; Osteoarthritis of right knee, unspecified osteoarthritis type M17.9 ; Dermatomyositis M33.90 ; Hypertension, unspecified type I10 and Fatigue, unspecified type R53.83 [facility] [id number] [address] 6[address] Feb, [facility] [id number] [place] [address] 38394- 0572 Feb, BMI 45.0-49.9, adult Z68.42 [facility] [id number] [place] [address] 47510- 4162 Feb, Mood disorder F39 [facility] [address] [address] 0723 Feb, [facility] [id number] [place] [address] 00901- 7748 Feb, Mood disorder F39 [facility] [id number] [place] [address] 95462- 4944 Feb, Other chronic pain G89.29 ; Anxiety F41.9 and Diabetes with other specified manifestations, type II or unspecified type, not stated as uncontrolled 250.80 [facility] [id number] [place] [address] 71136- 9300 Feb, BMI 40.0-44.9, adult Z68.41 [facility] [id number] [place] [address] 46801- 5792 Feb, Pain in right knee M25.561 and Other chronic pain G89.29 [facility] [id number] [place] [address] 96196- 9968 Feb, [facility] [id number] [place] [address] 31233- 1380 Feb, BMI 45.0-49.9, adult Z68.42 ; Gait disturbance R26.9 ; Other specified mental disorders due to known physiological condition F06.8 ; Weakness R53.1 ; Frequent falls R29.6 and Self-care deficit for bathing R46.0 [facility] [facility] [id number] [place] [address] 29263- 8306 Feb, Pain in right knee M25.561 and Other chronic pain G89.29 [facility] [id number] [place] [address] 35528- 2294 Jan, Mood disorder F39 [facility] [address], [place] [address] 7580 27 Jan, 2018 BMI 45.0-49.9, adult Z68.42 and 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 [facility] [id number] [place] [address] 75127- 6054 25 Jan, 2018 [facility] [address] 15903- 0689 24 Jan, 2018 [facility] [id number] [place] [address] 04325- 3151 Jan, [facility] [address] 58617- 6093 Jan, 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 [facility] [id number] [place] [address] 87653- 7785 Jan, [facility] [address] 35192- 4139 Jan, [facility] [address] 18941- 3520 Jan, [facility] [id number] [place] [address] 66007- 4237 Jan, Allergic reaction to drug, initial encounter T78.40XA [facility] [id number] [place] [address] 37488- 5076 17 Jan, 2018 BMI 45.0-49.9, adult Z68.42 and Facial droop R29.810 [facility] [id number] [place] [address] 16619- 9206 14 Jan, 2018 Mood disorder F39 [facility] [id number] [place] [address] 73535- 5904 11 Jan, 2018 Dermatomyositis M33.90 and BMI 40.0-44.9, adult Z68.41 [facility] [id number] [place] [address] 92540- 9090 10 Jan, 2018 [facility] [id number] [place] [address] 32507- 8431 05 Jan, 2018 [facility] [id number] [place] [address] 21503- 7296 Jan, Irritation of left eye H57.8 and BMI 40.0-44.9, adult Z68.41 [facility] [address] 95205- 8170 Dec, Diabetes type 2, controlled E11.9 [facility] [address] 91955- 6372 Dec, Acute right ankle pain M25.571 [place] [facility] [address] 79879- 4396 Dec, Other chronic pain G89.29 ; Diabetes type 2, controlled E11.9 ; Gait disturbance R26.9 ; Weakness R53.1 and Muscle spasm M62.838 [place] [facility] [address] 99353- 2938 Dec, Acute non-recurrent maxillary sinusitis J01.00 [place] [facility] [address] 43812- 6534 Dec, [facility] [address] 02375- 2175 Dec, [place] [facility] [address] 66250- 4338 Dec, Acute non-recurrent maxillary sinusitis J01.00 [facility] [address] 49052- 5646 Dec, Lumbago with sciatica, right side M54.41 and Lupus erythematosus L93.0 [facility] [address] 19235- 2235 Dec, Mood disorder F39 [place] [address] 92013- 3232 Dec, Mood disorder F39 [facility] [address] 50954- 4404 Dec, [facility] [id number] [place] [address] 34903- 6508 Dec, Acute right ankle pain M25.571 [facility] [id number] [place] [address] 95539- 8666 Nov, Lumbar radiculopathy M54.16 [facility] [id number] [place] [address] 67281- 1326 Nov, [facility] [id number] [place] [address] 89712- 4608 Nov, Mood disorder F39 [facility] [id number] [place] [address] 13214- 8205 Nov, Lumbago with sciatica, right side M54.41 and Other chronic pain G89.29 [facility] [id number] [place] [address] 08928- 0907 Nov, Acute right ankle pain M25.571 [facility] [id number] [place] [address] 06497- 4419 Nov, [facility] [id number] [place] [address] 82680- 8867 Oct, [facility] [id number] [place] [address] 95510- 0371 Oct, Plantar wart of both feet B07.0 [facility] [id number] [place] [address] 75049- 1476 Oct, [facility] [id number] [place] [address] 34786- 1925 Oct, Acute right ankle pain M25.571 and Plantar wart of both feet B07.0 [facility] [id number] [place] [address] 33609- 5386 September, Other chronic pain G89.29 [facility] [id number] [place] [address] 45457- 4202 September, Other chronic pain G89.29 [facility] [id number] [place] [address] 79024- 0240 September, Other chronic pain G89.29 [facility] [id number] [place] [address] 83565- 5793 Aug, Mood disorder F39 [place] [facility] [address] 69157- 4478 Aug, Other chronic pain G89.29 ; Controlled type 2 diabetes mellitus without complication, without long-term current use of insulin E11.9 ; Low back pain M54.5 and Tinea corporis B35.4 [place] [address] 00270- 5764 Aug, Mood disorder F39 and Anxiety F41.9 [facility] [id number] [place] [address] 20239- 5963 Aug, Mood disorder F39 and Anxiety F41.9 [facility] [id number] [place] [address] 61117- 1664 Jul, [facility] [id number] [place] [address] 20714 -3982 Jul, Scabies B86 and BMI 45.0-49.9, adult Z68.42 [facility] [id number] [place] [address] 77149- 6125 Jul, [facility] [id number] [place] [address] 14446- 7132 Jul, Mood disorder F39 and Anxiety F41.9 [facility] [id number] [place] [address] 90393- 5570 Jul, [facility] [id number] [place] [address] 12772 -6798 Jun, Bronchitis J40 ; Dark urine R82.99 and BMI 45.0-49.9, adult Z68.42 [facility] [id number] [place] [address] 83067- 8771 14 Jun, 2017 Acute pain of right shoulder M25.511 and Acute pain of right knee M25.561 [place] [id number] [place] [address] 26726- 1223 May, BMI 40.0-44.9, adult Z68.41 ; Controlled type 2 diabetes mellitus without complication, without long-term current use of insulin E11.9 ; Muscle cramping R25.2 ; Hot flashes R23.2 ; Mood disorder F39 ; Anxiety F41.9 and Morbid (severe) obesity due to excess calories E66.[address] 62064- 2117 May, BMI 40.0-44.9, adult Z68.41 ; Controlled type 2 diabetes mellitus without complication, without long-term current use of insulin E11.9 ; Muscle cramping R25.2 and Hot flashes R23.[address] 56500- 8619 May, Tachycardia with heart rate 121-140 beats per minute R00.0 ; Morbid (severe) obesity due to excess calories E66.01 ; Diabetes type 2, controlled E11.9 and Enlarged thyroid gland E04.9 [place] [id number] [place] [address] 88455- 0235 May, Encounter for well woman exam with [...] Dysuria R30.0 and Screening breast examination Z12.31 [place] [id number] [place] [address] 11513- 0235 Apr, Mood disorder F39 ; Other chronic pain G89.29 and Anxiety F41.9 [facility] [id number] [place] [address] 61622- 8916 Apr, Lumbago with sciatica, left side M54.42 and Other chronic pain G89.29 [facility] [id number] [place] [address] 82165- 8713 Apr, Lupus erythematosus L93.0 [facility] [address] 20586- 2216 Mar, Plantar wart of both feet B07.0 [facility] [id number] [place] [address] 44433- 3063 Mar, Lupus erythematosus L93.0 and Sinus drainage J34.89 [facility] [id number] [place] [address] 36356- 4254 Mar, Mood disorder F39 ; Other chronic pain G89.29 and Anxiety F41.9 [facility] [id number] [place] [address] 84282- 9073 Mar, Mood disorder F39 ; Arthritis M19.90 and Plantar warts B07.0 [facility] [id number] [place] [address] 80567- 1568 Feb, Lupus erythematosus L93.0 [facility] [id number] [place] [address] 83671- 0476 Feb, Other chronic pain G89.29 [facility] [id number] [place] [address] 99920- 9298 Feb, Mood disorder F39 and Anxiety F41.9 [facility] [id number] [place] [address] 89115- 6539 Jan, [facility] [id number] [place] [address] 62418- 9577 Jan, Mood disorder F39 [facility] [id number] [place] [address] 61843- 9921 Dec, Nail, ingrown L60.0 [facility] [id number] [place] [address] 46755- 4545 Dec, Nail, ingrown L60.0 [facility] [id number] [place] [address] 29310- 3366 Nov, Mood disorder F39 and Anxiety F41.9 [facility] [id number] [place] [address] 90376- 6288 Nov, Sinus drainage J34.89 ; Hot flashes R23.2 ; Anxiety F41.9 and Diabetes type 2, controlled E11.9 [facility] [id number] [place] [address] 02887- 6854 Nov, Nail, ingrown L60.0 [facility] [id number] [place] [address] 64883- 2535 Oct, Anxiety F41.9 and Mood disorder F39 [facility] [id number] [place] [address] 21856- 9082 Oct, Nail, ingrown L60.0 and Anxiety F41.9 [facility] [id number] [place] [address] 80265- 0661 Oct, Lupus erythematosus L93.0 [facility] [id number] [place] [address] 51015- 3382 September, [facility] [id number] [place] [address] 02862- 8863 September, [facility] [id number] [place] [address] 44843- 6822 September, Lupus erythematosus L93.0 [facility] [id number] [place] [address] 87528- 6063 Aug, [facility] [id number] [place] [address] 50581- 2123 Aug, Mood disorder F39 and Anxiety F41.9 [facility] [address] [place] [address] 28217- 5331 Aug, Lupus erythematosus L93.0 ; Diabetes type 2, controlled E11.9 and Localized edema R60.0 [facility] [id number] [place] [address] 40233- 7447 Aug, [facility] [id number] [place] [address] 79422- 7029 Jul, Anxiety F41.9 and Mood disorder F39 [facility] [facility] [id number] [place] [address] 84761- 5603 Jul, Diabetes type 2, controlled E11.9 [facility] [id number] [place] [address] 15422- 6053 Jun, Anxiety F41.9 [facility] [id number] [place] [address] 57901- 6126 May, [facility] [id number] [place] [address] 01884- 5316 May, [place] [id number] [place] [address] 12410- 8819 May, Nausea R11.0 ; Other chronic pain G89.29 and Pain in right knee M25.561 [place] [id number] [place] [address] 57855- 9180 May, [facility] [id number] [place] [address] 24963- 1214 Apr, Tear of medial meniscus of right knee, current, unspecified tear type, subsequent encounter S83.241D and Tear of lateral meniscus of right knee, current, unspecified tear type, subsequent encounter S83.281D [facility] [id number] [place] [address] 98018- 4083 09 Apr, 2016 Anxiety F41.9 and Mood disorder F39 [facility] [id number] [place] [address] 69750- 1123 Apr, Anxiety F41.9 [facility] [id number] [place] [address] 24947- 1022 Apr, [facility] [id number] [place] [address] 95413- 0534 Mar, [facility] [id number] [place] [address] 84736- 2345 Mar, Lupus erythematosus L93.0 and Diabetes type 2, controlled E11.9 [facility] [id number] [place] [address] 61729- 9644 Mar, Mood disorder F39 [place] [id number] [place] [address] 10904- 2864 Mar, Tear of lateral meniscus of right knee, current, unspecified tear type, initial encounter S83.281A and Osteoarthritis of right knee, unspecified osteoarthritis type M17.9 [place] [id number] [place] [address] 04551- 7709 Mar, [facility] [id number] [place] [address] 79443- 7317 Feb, Mood disorder F39 [facility] [id number] [place] [address] 47979- 9497 Feb, Rash R21 [facility] [id number] [place] [address] 79410- 8512 Feb, [facility] [id number] [place] [address] 05801- 7420 Jan, Other chronic pain G89.29 and Muscle spasm M62.838 [facility] [id number] [place] [address] 14487- 6296 Jan, Mood disorder F39 [facility] [id number] [place] [address] 88082- 4556 Jan, Pain in right knee M25.561 ; Other chronic pain G89.29 and Muscle spasm M62.838 [place] [address] [address]- 2713 Dec, [facility] [id number] [place] [address] 03777- 6201 Dec, [facility] [id number] [place] [address] 94502- 1162 Nov, [facility] [id number] [place] [address] 68837- 0408 Nov, Mood disorder F39 [place] [id number] [place] [address] 74561- 8877 Nov, Diabetes type 2, controlled E11.9 ; Bronchitis J40 ; Edema, unspecified type R60.9 ; Weight gain R63.5 and Right knee pain, unspecified chronicity M25.561 [place] [id number] [place] [address] 09924- 3214 Oct, Mood disorder F39 [place] [id number] [place] [address] 82614- 5812 Oct, Lupus erythematosus L93.0 and Bilateral edema of lower extremity R60.0 [facility] [id number] [place] [address] 41377- 8115 Oct, Mood disorder F39 and Anxiety F41.9 [place] [id number] [place] [address] 95073- 6202 September, Mood disorder F39 ; Anxiety F41.9 and Anger reaction R45.4 [place] [address] [place] [address] 41620- 9774 September, Diabetes type 2, controlled E11.9 ; Edema, unspecified type R60.9 and Fatigue, unspecified type R53.83 [place] [address] [place] [address] 94301- 7763 Aug, Mood disorder F39 and Generalized anxiety disorder F41.1 [place] [address] [place] [address]- 1775 Aug, Diabetes type 2, controlled E11.9 ; Sinusitis J32.9 and Mood disorder F39 [facility] [id number] [place] [address] 32826- 7676 15 Aug, 2015 Lupus erythematosus L93.0 [facility] [id number] [place] [address] 51595- 5934 14 Aug, 2015 [facility] [id number] [place] [address] 25393- 8293 Aug, [facility] [id number] [place] [address] [phone]- [phone] Jul, Diabetes type 2, controlled E11.9 [facility] [id number] [place] [address] [id number]- [phone] Jul, Mood disorder F39 and Depression F32.9 [facility] [id number] [place] [address] [phone]- [phone] Jul, Lupus erythematosus L93.0 and Diabetes type 2, controlled E11.9 [facility] [id number] [place] [address] 16480- [phone] Jul, Mood disorder F39 and Anxiety F41.9 [facility] [id number] [address] Jul, [facility] [id number] [place] [address] [phone] Jul, [facility] [id number] [place] [address] [phone]- [phone] Jun, Mood disorder F39 and Anxiety F41.9 [facility] [id number] [place] [address] [phone]- [phone] Jun, Mood disorder F39 [facility] [address] [address] 18 Jun, 2015 [facility] [id number] [address] 15 Jun, 2015 [facility] [id number] [place] [address] [phone]- [phone] Jun, Mood disorder F39 [facility] [id number] [place] [address] [phone]- [phone] Jun, [facility] [id number] [place] [address] [phone]- [phone] May, [facility] [id number] [place] [address] [phone]- [phone] May, [facility] [id number] [place] [address] [phone]- [phone] May, [facility] [id number] [place] [address] [phone]- [phone] May, [facility] [id number] [place] [address] 03522- 8994 May, Anxiety F41.9 ; Dermatomyositis M33.90 and Diabetes type 2, controlled E11.9 [facility] [id number] [place] [address] [phone] -[phone] May, Sinusitis J32.9 and Cough R05 [facility] [id number] [place] [address] [phone]- [phone] May, Mood disorder F39 [facility] [address] [id number] [place] [address] 50625- 5445 May, Adjustment disorder with mixed anxiety and depressed mood F43.23 [facility] [id number] [place] [address] 04693- 7468 Apr, [facility] [id number] [place] [address] 08771- 3177 Apr, [facility] [address] [address] 3531 Apr, Generalized anxiety disorder F41.1 and Mood disorder F39 [facility] [address] [address] 0581 Mar, [facility] [id number] [place] [address] 13977- 4232 Mar, [facility] [id number] [place] [address] 48750- 0799 Mar, [facility] [id number] [place] [address] 43465- 0001 Mar, Mood disorder F39 [facility] [id number] [place] [address] 13544- 7966 Feb, [facility] [id number] [place] [address] 97117- 7066 Feb, Diabetes E11.9 and Bronchitis J40 [facility] [id number] [place] [address] 73368- 0851 Feb, [facility] [id number] [place] [address] 40667- 1482 Feb, [facility] [id number] [place] [address] 80542- 2519 Feb, Major depression, recurrent, full remission F33.42 and KELLY ( generalized anxiety disorder) F41.1 [facility] [id number] [place] [address] 69924- 4158 Feb, [facility] [id number] [place] [address] 13271- 9219 Feb, Single major depressive episode, in partial or unspecified remission F32.5 [facility] [id number] [place] [address] 91059- 6343 Jan, 2014 Fatigue 780.79 [facility] [id number] [place] [address] 64774- 2546 Jan, [facility] [id number] [place] [address] 33812- 3951 Jan, Diabetes with other specified manifestations, type II or unspecified type, not stated as uncontrolled [id number] [place] [address] [id number]- 6353 Jan, [id number] [place] [address] [id number]- 7134 Dec, Hot flashes 627.2 ; Memory loss 780.93 and Joint pain 719.40 [id number] [place] [address] 76069- 6902 Dec, Major depression, recurrent 296.30 ; Generalized anxiety disorder 300.02 ; Adjustment disorder with depressed mood 309.0 and No condition on [place] II V71.09 [id number] [place] [address] [id number]- 8730 Dec, [id number] [place] [address] 97764- 3394 Nov, Cognitive and neurobehavioral dysfunction 294.9 ; Major depressive disorder, recurrent episode, moderate degree 296.32 and Anxiety state , unspecified 300.00 [id number] [place] [address] 21788- 1683 Nov, [id number] [place] [address] 10415- 4571 Nov, Bronchitis 490 and Diabetes with other specified manifestations, type II or unspecified type, not stated as uncontrolled 250.80 [id number] [place] [address] 23318- 2091 Nov, Major depressive disorder, recurrent episode, moderate 296.32 and Anxiety disorder, unspecified [address].00 [id number] [place] [address] 40159- 0547 Nov, Anxiety, generalized 300.02 ; Intermittent explosive disorder 312.34 ; No condition on [place] II V71.09 and No condition on axis III V71.09 [id number] [place] [address] 48331- 1138 Oct, Diabetes with other specified manifestations, type II or unspecified type, not stated as uncontrolled 250.80 ; Urinary tract infection, site not specified 599.0 and Bronchitis [id number] [place] [address] 44750- 6938 Oct, Intermittent explosive disorder 312.34 ; Bipolar 1 disorder , depressed, moderate 296.52 ; Major depression, chronic 296.20 ; No condition on [place] II V71.09 and No condition on axis III V71.09 [id number] [place] [address] 75288- 3759 Oct, Major depressive disorder, recurrent episode, moderate 296.32 ; Anxiety state 300.00 ; Cognitive decline 294.9 and No condition on [place] II V71.[address] 85609- 9987 Oct, [address] 15011- 0971 Oct, Major depressive disorder, recurrent episode, moderate 296.32 ; Anxiety disorder, unspecified 300.00 and Persistent disorder of initiating or maintaining sleep 307.42 [id number] [place] [address] 28664- 1367 September, Diabetes with other specified manifestations, type II or unspecified type, not stated as uncontrolled 250.80 ; Memory loss 780.93 and Cognitive complaints 799.59 [id number] [place] [address] 07321- 2597 September, No condition on [place] II V71.09 ; Major depression, recurrent 296.30 and Persistent mood [affective] disorder, unspecified 296.90 [id number] [place] [address] 15467- 7993 Aug, [id number] [place] [address] 08689- 7662 Aug, [address] 07126- 8822 Aug, [facility] [place] [facility] [address] [id number] [place] [address]- 9344 Jul, [facility] [place] [facility] [address] [id number] [place] [address]- 6803 Jul, [facility] [place] [facility] [address] [id number] [place] [address]- 8497 Jul, [facility] [place] [facility] [address] [id number] [place] [address]- 9236 Jul, [facility] [place] [facility] [address] [id number] [place] [address]- 7719 Jul, [facility] [place] [facility] [address] [id number] [place] [address]- 0918 Jun, 2014 [facility] [place] [facility] [address] [facility] [id number] [place] [address]- 2051 Jun, 2014 [facility] [place] [facility] [address] [facility] [id number] [place] [address]- 0712 Jun, 2014 [facility] [place] [facility] [address] [id number] [place] [address]- 1612 Jun, 2014 [facility] [place] [facility] [address] [facility] [id number] [place] [address]- 5985 Jun, 2014 [facility] [place] [facility] [address] [facility] [id number] [place] [address]- 3561 Jun, 2014 [facility] [place] [facility] [address] [id number], [place] [address]- 4193 Jun, 2014 [facility] [place] [facility] [address] [id number] [place] [address]- 5860 Jun, 2014 [facility] [place] [facility] [address] [facility] [id number] [place] [address]- 8488 Jun, 2014 [facility] [place] [facility] [address] [facility] [id number] [place] [address]- 4052 Jun, 2014 [facility] [place] [facility] [address] [id number] [place] [address]- 6306 05 Jun, 2014 [facility] [place] [facility] [address] [id number] [place] [address]- 1086 Jun, 2014 [facility] [place] [facility] [address] [id number] [place] [address]- 1266 Jun, 2014 [facility] [place] [facility] [address] [id number] [place] [address]- 9984 May, [facility] [place] [facility] [address] [id number] [place] [address]- 9387 May, [facility] [place] [facility] [address] [id number] [place] 4435 Apr, [facility] [place] [facility] [address] [id number] [place] [address]- 5103 Apr, [facility] [place] [facility] [address] [id number] [place] [address]- 8130 Apr, [facility] [place] [facility] [address] [id number] [place] [address]- 2064 Apr, [facility] [place] [facility] [address] [id number] [place] [address]- 6976 Apr, [facility] [place] [facility] [address] [id number] [place] [address]- 2421 Apr, [facility] [place] [facility] [address] [id number] [place] [address]- 9927 Apr, [facility] [place] [facility] [address] [id number] [place] [address] 2546 Apr, [facility] [place] [facility] [address] [id number] [place] [address]- 4836 Apr, [facility] [place] [facility] [address] [id number] [place] [address]- 4166 15 Apr, 2014 [facility] [place] [facility] [address] [id number] [place] [address]- 1445 Apr, [facility] [place] [facility] [address] [id number] [place] [address]- 5215 Apr, [facility] [place] [facility] [address] [id number] [place] [address]- 8537 Apr, [facility] [place] [facility] [address] [id number] [place] [address]- 0726 Apr, [facility] [place] [facility] [address] [id number] [place] [address]- 1571 Apr, [facility] [place] [facility] [address] [id number] [place] [address]- 5653 Apr, [facility] [place] [facility] [address] [id number] [place] [address]- 1864 Apr, [facility] [place] [facility] [address] [id number] [place] [address]- 1072 Apr, [facility] [place] [facility] [address] [id number] [place] [address]- 2419 Apr, [facility] [place] [facility] [address] [id number] [place] [address]- 0719 Apr, [facility] [place] [facility] [address] [id number] [place] [address]- 2850 Mar, [facility] [place] [facility] [address] [id number], [place] [address]- 0440 Mar, [facility] [place] [facility] [address] [id number], [place] [address]- 3275 Mar, [facility] [place] [facility] [address] [id number] [place] [address]- 3988 Mar, [facility] [place] [facility] [address] [id number] [place] [address]- 6699 Mar, [facility] [place] [facility] [address] [id number] [place] [address]- 0066 Mar, [facility] [place] [facility] [address] [id number] [place] [address]- 7384 Mar, [facility] [place] [facility] [address] [id number] [place] [address]- 0820 Mar, [facility] [place] [facility] [address] [id number] [place] [address]- 1831 Mar, [facility] [place] [facility] [address] [id number] [place] [address]- 0777 Mar, [facility] [place] [facility] [address] [id number] [place] [address]- 2967 Mar, [facility] [place] [facility] [address] [id number] [place] [address]- 5478 Mar, [facility] [place] [facility] [address] [id number] [place] [address]- 2251 Mar, [facility] [place] [facility] [address] [id number] [place] [address]- 4129 Feb, [facility] [place] [facility] [address] [id number] [place] [address]- 1410 Feb, [facility] [place] [facility] [address] [id number] [place] [address]- 6067 30 Feb, 2014 [facility] [place] [facility] [address] [id number] [place] [address]- 9499 Feb, [facility] [place] [facility] [address] [id number] [place] [address]- 1846 Feb, [facility] [place] [facility] [address] [id number] [place] [address]- 1979 Feb, [facility] [place] [facility] [address] [id number] [place] [address]- 4518 Feb, [facility] [place] [facility] [address] [id number] [place] [address]- 6801 Feb, [facility] [place] [facility] [address] [id number] [place] [address]- 5825 Feb, [facility] [place] [facility] [address] [id number] [place] [address]- 9288 Feb, [facility] [place] [facility] [address] [id number] [place] [address]- 3115 Feb, [facility] [place] [facility] [address] [id number] [place] [address]- 6829 10 Feb, 2014 [facility] [place] [facility] [address] [id number] [place] [address]- 0199 10 Feb, 2014 [facility] [place] [facility] [address] [id number] [place] [address]- 8433 07 Feb, 2014 [facility] [place] [facility] [address] [id number] [place] [address]- 7289 07 Feb, 2014 [facility] [place] [facility] [address] [id number] [place] [address]- 2341 10 Jan, 2014 [facility] [place] [facility] [address] [id number] [place] [address]- 0718 08 Jan, 2014 [facility] [place] [facility] [address] [id number] [place] [address]- 9657 08 Jan, 2014 [facility] [place] [facility] [address] [id number] [place] [address]- 0349 08 Jan, 2014 [facility] [place] [facility] [address] [id number] [place] [address]- 9080 Jan, [facility] [place] [facility] [address] [id number] [place] [address]- 8813 Dec, [facility] [place] [facility] [address] [id number] [place] [address]- 3516 Dec, [facility] [place] [facility] [address] [id number] [place] [address]- 4818 Dec, [facility] [place] [facility] [address] [id number] [place] [address]- 6358 Dec, [facility] [place] [facility] [address] [id number] [place] [address]- 8636 Nov, [facility] [place] [facility] [address] [id number] [place] [address]- 9815 Nov, [facility] [place] [facility] [address] [id number] [place] [address]- 8501 Nov, [facility] [place] [facility] [address] [id number] [place] [address]- 8939 Nov, [facility] [place] [facility] [address] [id number] [place] [address]- 5029 Nov, [facility] [place] [facility] [address] [id number] [place] [address]- 2153 Nov, [facility] [place] [facility] [address] [id number] [place] [address]- 6333 Nov, [facility] [place] [facility] [address] [id number] [place] [address]- 3435 Nov, [facility] [place] [facility] [address] [id number] [place] [address]- 2704 Nov, [facility] [place] [facility] [address] [id number] [place] [address]- 7868 Nov, [facility] [place] [facility] [address] [id number] [place] [address]- 7028 Oct, [facility] [place] [facility] [address] [id number] [place] [address]- 3404 Oct, [facility] [place] [facility] [address] [id number] [place] [address]- 5186 September, [facility] [place] [facility] [address] [id number] [place] [address]- 8524 September, [facility] [place] [facility] [address] [id number] [place] [address]- 4957 September, [facility] [place] [facility] [address] [id number] [place] [address]- 0110 September, [facility] [place] [facility] [address] [id number] [place] [address]- 2319 16 Aug, 2013 [facility] [address] [id number] [place] [address]- 1879 14 Aug, 2013 [facility] [place] [facility] [address] [id number] [place] [address]- 8818 14 Aug, 2013 [facility] [address] [id number] [place] [address]- 6090 24 Jul, 2013 [facility] [address] [id number] [place] [address]- 5188 24 Jul, 2013 [facility] [address] [id number] [place] [address]- 9031 14 Jul, 2013 [facility] [address] [id number] [place] [address]- 8013 14 Jul, 2013 [facility] [address] [id number] [place] [address]- 0249 20 May, 2013 [facility] [address] [id number] [place] [address]- 5833 17 May, 2013 [facility] [address] [id number] [place] [address]- 0897 17 May, 2013 [facility] [address] [id number] [place] [address]- 5795 15 Mar, 2013 [facility] [place] [facility] [address] [id number] [place] [address]- 4498 15 Mar, 2013 [facility] [place] [facility] [address] [id number] [place] [address]- 6312 13 Mar, 2013 [facility] [place] [facility] [address] [id number] [place] [address]- 6325 13 Mar, 2013 [facility] [place] [facility] [address] [id number] [place] [address]- 9469 16 Feb, 2013 [facility] [place] [facility] [address] [id number] [place] [address]- 7386 Feb, [facility] [address] [id number] [place] [address]- 6118 Feb, [facility] [place] [facility] [address] [id number] [place] [address]- 2556 Jan, [facility] [place] [facility] [address] [id number] [place] [address]- 2226 Jan, [facility] [place] [facility] [address] [id number] [place] [address]- 1746 Jan, [facility] [place] [facility] [address] [id number] [place] [address]- 5919 Dec, [facility] [place] [facility] [address] [id number] [place] [address]- 8426 Dec, [facility] [place] [facility] [address] [id number] [place] [address]- 7086 Dec, [facility] [place] [facility] [address] [id number] [place] [address]- 3301 Dec, [facility] [place] [facility] [address] [id number] [place] [address]- 1500 Nov, [facility] [place] [facility] [address] [id number] [place] [address]- 5364 Oct, [facility] [place] [facility] [address] [id number] [place] [address]- 8262 Oct, [facility] [place] [facility] [address] [id number], [place] [address]- 9415 September, [facility] [place] [facility] [address] [id number] [place] [address]- 4477 September, [facility] [place] [facility] [address] [id number] [place] [address]- 5336 September, [facility] [place] [facility] [address] [id number] [place] [address]- 3161 Aug, [facility] [place] [facility] [address] [id number], [place] [address]- 1536 18 Aug, 2012 [facility] [address] [id number] [place] [address]- 9342 17 Aug, 2012 [facility] [address] [id number] [place] [address]- 0491 09 Aug, 2012 [facility] [address] [id number] [place] [address]- 8557 26 Jul, 2012 [facility] [address] [id number] [place] [address]- 0101 25 Jul, 2012 [facility] [address] [id number] [place] [address]- 0195 21 Jul, 2012 [facility] [address] [id number] [place] [address]- 9066 15 Jul, 2012 [facility] [address] [facility] [id number] [place] [address]- 6071 14 Jul, 2012 [facility] [address] [id number] [place] [address]- 6821 13 Jul, 2012 [facility] [address] [id number] [place] [address]- 9955 13 Jul, 2012 [facility] [address] [facility] [id number] [place] [address]- 4952 Jun, [facility] [address] [id number] [place] [address]- 1676 Jun, [facility] [place] [facility] [address] [id number] [place] [address]- 5468 Jun, [facility] [place] [facility] [address] [id number] [place] [address]- 6369 Jun, [facility] [place] [facility] [address] [id number] [place] [address]- 9959 May, [facility] [address] [id number], [place] [address]- 2757 May, [facility] [place] [facility] [address] [id number] [place] [address]- 1856 May, [facility] [place] [facility] [address] [id number] [place] [address]- 3316 May, [facility] [place] [facility] [address] [id number] [place] [address]- 3966 May, [facility] [place] [facility] [address] [id number] [place] [address]- 2538 Apr, [facility] [place] [facility] [address] [id number] [place] [address]- 6872 Apr, [facility] [place] [facility] [address] [id number] [place] [address]- 7379 Mar, [facility] [place] [facility] [address] [id number] [place] [address]- 3289 Mar, [facility] [place] [facility] [address] [id number] [place] [address]- 5925 Mar, [facility] [place] [facility] [address] [id number] [place] [address]- 3939 Mar, [facility] [place] [facility] [address] [id number] [place] [address]- 1803 Mar, [facility] [place] [facility] [address] [id number] [place] [address] Mar, [facility] [place] [facility] [address] [id number] [place] [address] Mar, [facility] [place] [facility] [address] [id number] [place] [address] Mar, [facility] [place] [facility] [address] [id number] [place] [address] Mar, [facility] [place] [facility] [address] [id number] [place] [address] Mar, [facility] [place] [facility] [address] [id number] [place] [address] Feb, [facility] [place] [facility] [address] [id number] [place] [address] Feb, [facility] [place] [facility] [address] [id number] [id number] [address] Feb, [facility] [place] [facility] [address] [id number] [place] [address] Feb, [facility] [place] [facility] [address] [id number] [place] [address] Feb, [facility] [place] [facility] [address] [id number] [place] [address] Feb, [facility] [place] [facility] [address] [id number] [place] [address] Feb, [facility] [place] [facility] [address] [id number] [place] [address] Jan, [facility] [place] [facility] [address] [id number] [place] [address] Jan, [facility] [place] [facility] [address] [id number] [place] [address] Dec, [facility] [place] [facility] [address] [id number] [place] [address] Dec, [facility] [place] [facility] [address] [id number] [place] [address] Dec, [facility] [place] [facility] [address] [id number] [place] [address] Dec, [facility] [place] [facility] [address] [id number] [place] [address] Dec, [facility] [place] [facility] [address] [id number] [place] [address] Dec, [facility] [place] [facility] [address] [id number] [place] [address] Nov, [facility] [place] [facility] [address] [id number] [place] [address] Nov, [facility] [address] [id number] [place] [address] Nov, [facility] [address] [id number] [place] [address] Nov, [facility] [address] [id number] [place] [address] September, [facility] [address] [id number] [place] [address] September, [facility] [address] [id number] [place] [address] September, [facility] [address] [id number] [place] [address] Jul, [facility] [address] [id number] [place] [address] Jun, [facility] [address] [id number] [place] [address] Jun, [facility] [address] [id number] [place] [address] Jun, [facility] [address] [id number] [place] [address] Apr, [facility] [address] [id number] [place] [address] Mar, [facility] [address] [id number] [place] [address] Mar, [facility] [place] [facility] [address] [id number] [place] [address] Feb, [facility] [place] [facility] [address] [id number] [place] [address] Feb, [facility] [place] [facility] [address] [id number] [place] [address] Feb, [facility] [address] [facility] [id number] [place] [address] Jul, [facility] [address] [facility] [id number] [address] Feb, IMMUNIZATIONS No Known Immunizations SOCIAL HISTORY Never Assessed REASON FOR VISIT vaginal itching since yesterday. also reports vaginal discharge that is clear in color. denies all other urinary symptoms. PLAN OF CARE Activity Details Follow Up if not improving or regular follow up with pcp Reason: Pending Test CULTURE, URINE VITAL SIGNS Height 62 in 2018-03-29 Weight 240.0 lbs 2018-03-29 Temperature 97.6 degrees Fahrenheit 2018-03-29 Heart Rate 94 bpm 2018-03-29 Respiratory Rate 20 2018-03-29 BMI 43.89 kg/m2 2018-03-29 Blood pressure systolic 130 mmHg 2018-03-29 Blood pressure diastolic 80 mmHg 2018-03-29 MEDICATIONS Medication Instructions Dosage Frequency Start Date End Date Duration Status Folic Acid 1 MG TAKE ONE TABLET BY MOUTH ONCE DAILY (DO NOT TAKE ON DAYS YOU TAKE METHOTREXATE) 30 Active Metal Pumper Helper - use for assistance with reaching for Feb, Active [place] 10-325 MG Orally every 6 hrs 1 tablet as needed 6h 26 Feb, 2018 28 days Active Dulera 200-5 MCG/ACT Inhalation Twice a day 1 puff 12h 30 Dec, 2017 Active Furosemide 20 MG TAKE 1 TABLET BY MOUTH ONCE DAILY 30 Active Proventil HFA 108 (90 Base) MCG/ACT INHALE TWO PUFFS BY MOUTH FOUR TIMES DAILY NEEDED 25 Active Promethazine HCl 25 MG Orally every 12 hrs 1 tablet as needed 12h 30 day(s) Active Methotrexate 2.5 MG Orally 1 time per week 6 Active Potassium Chloride Marie ER 20 MEQ TAKE ONE TABLET BY MOUTH ONCE DAILY WITH FOOD 30 Active Terbinafine HCl 1 % Externally Twice a day 1 application to affected area 12h Aug, Active Benzonatate 100 MG TAKE ONE CAPSULE BY MOUTH THREE TIMES DAILY NEEDED 10 Active HydrOXYzine HCl 25 MG Orally every 8 hrs 1 tablet as needed 8h Jan, 30 day(s) Active Lisinopril-Hydrochlorothiazide 20-25 MG TAKE ONE TABLET BY MOUTH ONCE DAILY 30 Active Diflucan 150 MG Orally Once a day 1 tablet 24h Mar, Mar, 1 dose Active Ondansetron 4 MG Orally every 4 hrs 1 tablet on the tongue and allow to dissolve as needed 4h Active Cymbalta 60 mg Orally Twice a day 1 capsule 12h Aug, Active Spironolactone 25 MG TAKE ONE TABLET BY MOUTH ONCE DAILY 30 Active PrednisoLONE Acetate 1 % Ophthalmic Twice a day 1 drop into affected eye 12h Active Magnesium Oxide 400 mg Orally Once a day 1 tablet as needed 24h 30 day(s) Active Neurontin 600 MG Orally Three times a day 1 capsule 8h Nov, 30 day(s) Active Actos 30 MG Orally Once a day 1 tablet 24h Feb, 30 day(s) Active Walker 1 as directed Dec, Active Raised Toilet Seat - as directed Feb, Active PredniSONE 20 mg 3 tablets daily x 7 days, 2 tabs daily x 7 days, then daily as previous dose Active Glucocard Expression Test - as directed 24h Nov, Active Loratadine 10 MG TAKE ONE TABLET BY MOUTH ONCE DAILY 30 Active Glucometer Diabetic monitor, test strips, lancets, alcohol pad as directed Feb, Active Adjust Bath/Shower Seat/Back - use for showering Feb, Active Omeprazole Active GlipiZIDE 5 mg Orally Once a day 1 tablet 24h Feb, Active Macrobid 100 mg Orally every 12 hrs 1 capsule with food 12h Mar, Mar, 3 days Active RESULTS Name Result Date Reference Range UA LONG DIP (IN HOUSE) 2018-03-29 Lot # [id number] Exp date 04 27 2018 Clarity cloudy Color yellow Odor mild GLU negative MARIANA negative KET negative SG 1.015 BLO 3+ pH 6.5 Protein negative URO 0.2 NIT negative KEVIN 3+ Lot # [id number] Exp date apr 2018 BACTERIAL VAGINOSIS (IN HOUSE) 2018-03-29 RESULTS negative Control + Lot # [id number] Exp date 2018 07 PROCEDURES Procedure Date Ordered Result Body Site URINALYSIS, AUTO, W/O SCOPE Mar 29, 2018 LAB NOT BILLED BY [facility] Mar 29, 2018 Bacterial Vaginosis In House Mar 29, 2018 INSTRUCTIONS MEDICATIONS ADMINISTERED No Known Medications MEDICAL (GENERAL) HISTORY Type Description Date Medical History type II diabetes-dx'd 12/2010 Medical History dysfunctional uterine bleeding--endometrial bx 12/2010 Medical History asthma Medical History hypertension Medical History obesity Medical History anxiety Medical History autoimmune disease Surgical History x1 Hospitalization History child Hospitalization History Asthma
--- OUTSIDE RECORDS SUMMARY | 2018-05-09 22:31 | XMS REPORT ---
Author Author MACY TAMAYO [facility] Address [address] [place] [address] Care Team Providers Care Filling Hauler Name Role Phone MACY TAMAYO Unavailable PROBLEMS Type Condition ICD9-CM Code JER17-IO Code Onset Dates Condition Status SNOMED Code Problem Dermatomyositis M33.90 Active 640109766 Problem Lumbago with sciatica, right side M54.41 Active 233312660 Problem Morbid (severe) obesity due to excess calories E66.01 Active 631392911 Problem Diabetes with other specified manifestations, type II or unspecified type, not stated as uncontrolled 250.80 Active 795951012 Problem Osteoarthritis of right knee, unspecified osteoarthritis type M17.9 Active 059413286 Problem Hypertension, unspecified type I10 Active 84796174 Problem Menopause Z78.0 Active 252626822 Problem Diabetes type 2, controlled E11.9 Active 15242355 Problem Facial droop R29.810 Active 10941697 Problem Gait disturbance R26.9 Active 78029452 Problem Other specified mental disorders due to known physiological condition F06.8 Active 00533035 Problem Frequent falls R29.6 Active 814663078 Problem Plantar warts B07.0 Active 42064704 Problem Arthritis M19.90 Active 5935981 Problem Anxiety F41.9 Active 04255407 Problem Other chronic pain G89.29 Active 02054705 Problem Controlled type 2 diabetes mellitus without complication, without long -term current use of insulin E11.9 Active 053838290 Problem Body mass index (BMI) of 45.0-49.9 in adult Z68.42 Active 399813441 Problem Allergic rhinitis due to pollen J30.1 Active 85976321 Problem Plantar wart of both feet B07.0 Active 16562928020905768 Problem Tachycardia with heart rate 121-140 beats per minute R00.0 Active 0247656 Problem Mood disorder F39 Active 19573694 Problem Lumbago with sciatica, left side M54.42 Active 090099848 Problem Enlarged thyroid gland E04.9 Active 2038935 ALLERGIES Substance Reaction Event Type Date Status Fluarix Quadrivalent vomiting Drug Allergy Feb, Active Zoloft makes very angry Drug Allergy Feb, Active Fluarix vomiting Drug Allergy Feb, Active Aspirin rash Drug Allergy Feb, Active Latex, Natural Rubber rash Non Drug Allergy Feb, Active ENCOUNTERS Encounter Location Date Diagnosis [place] [id number] [place] [address] 04994- 2096 Apr, [facility] [id number] [place] [address] 73990- 8877 Mar, [place] [id number] [place] [address] 88180- 0600 Mar, [facility] [id number] [place] [address] 74437- 5599 Mar, [place] [id number] [place] [address] 50118- 0407 Feb, BMI 40.0-44.9, adult Z68.41 ; Diabetes type 2, controlled E11.9 ; Osteoarthritis of right knee, unspecified osteoarthritis type M17.9 ; Dermatomyositis M33.90 ; Hypertension, unspecified type I10 and Fatigue, unspecified type R53.83 [place] [address] [address] 7960 Feb, [facility] [id number] [place] [address] 71247- 0583 Feb, BMI 45.0-49.9, adult Z68.42 [facility] [id number] [place] [address] 66905- 6079 Feb, Mood disorder F39 [facility] [id number] [place] [address] 27373- 1339 Feb, [facility] [id number] [place] [address] 66392- 6264 Feb, Mood disorder F39 [place] [address] [place] [address] 4790 Feb, Other chronic pain G89.29 ; Anxiety F41.9 and Diabetes with other specified manifestations, type II or unspecified type, not stated as uncontrolled 250.80 [place] [id number] [place] [address] 87051- 2906 Feb, BMI 40.0-44.9, adult Z68.41 [place] [address] 86243- 7704 Feb, Pain in right knee M25.561 and Other chronic pain G89.29 [place] [address] 262187- 4113 Feb, [place] [address] 06287- 1229 Feb, BMI 45.0-49.9, adult Z68.42 ; Gait disturbance R26.9 ; Other specified mental disorders due to known physiological condition F06.8 ; Weakness R53.1 ; Frequent falls R29.6 and Self-care deficit for bathing R46.0 [place] [address] 15542- 2969 Feb, Pain in right knee M25.561 and Other chronic pain G89.29 [facility] [place] [id number] [place] [address] 57052- 3010 Jan, Mood disorder F39 [facility] [place] [id number] [place] [address] 29854- 5924 Jan, BMI 45.0-49.9, adult Z68.42 and 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 [place] [address] 90540- 5719 Jan, [place] [address] 67240- 7333 Jan, [place] [address] 53267- 5089 Jan, [facility] [id number] [place] [address] 85123- 5350 Jan, 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 [facility] [id number] [place] [address] 88534- 6178 Jan, [facility] [id number] [place] [address] 52559- 1036 Jan, [facility] [id number] [place] [address] 86511- 5662 Jan, [place] [address] 14604- 9225 19 Jan, 2018 Allergic reaction to drug, initial encounter T78.40XA [facility] [id number] [place] [address] 81593- 5760 17 Jan, 2018 BMI 45.0-49.9, adult Z68.42 and Facial droop R29.810 [facility] [id number] [place] [address] 33600- 1106 14 Jan, 2018 Mood disorder F39 [place] [address] 88570- 3250 11 Jan, 2018 Dermatomyositis M33.90 and BMI 40.0-44.9, adult Z68.41 [facility] [id number] [place] [address] 54323- 2571 10 Jan, 2018 [facility] [id number] [place] [address] 54137- 4392 05 Jan, 2018 [facility] [id number] [place] [address] 09654- 1837 04 Jan, 2018 Irritation of left eye H57.8 and BMI 40.0-44.9, adult Z68.41 [facility] [id number] [place] [address] 84265- 9064 Dec, Diabetes type 2, controlled E11.9 [facility] [id number] [place] [address] 18789- 6655 Dec, Acute right ankle pain M25.571 [facility] [address] 70856- 6835 Dec, Other chronic pain G89.29 ; Diabetes type 2, controlled E11.9 ; Gait disturbance R26.9 ; Weakness R53.1 and Muscle spasm M62.838 [facility] [address] 53510- 4005 Dec, Acute non-recurrent maxillary sinusitis J01.00 [facility] [id number] [place] [address] 76370- 7486 Dec, [facility] [id number] [place] [address] 86973- 2492 Dec, [facility] [address] 41424- 4841 Dec, Acute non-recurrent maxillary sinusitis J01.00 [facility] [id number] [place] [address] 86681- 2278 Dec, Lumbago with sciatica, right side M54.41 and Lupus erythematosus L93.0 [facility] [id number] [place] [address] 61102- 0519 Dec, Mood disorder F39 [facility] [id number] [place] [address] 23521- 5803 Dec, Mood disorder F39 [facility] [id number] [place] [address] 48360- 2202 Dec, [facility] [id number] [place] [address] 26657- 6271 Dec, Acute right ankle pain M25.571 [facility] [id number] [place] [address] 99794- 5300 Nov, Lumbar radiculopathy M54.16 [facility] [address] [address]- 0278 Nov, [facility] [id number] [place] [address] 67411- 0488 Nov, Mood disorder F39 [facility] [id number] [place] [address] 95088- 4124 Nov, Lumbago with sciatica, right side M54.41 and Other chronic pain G89.29 [facility] [id number] [place] [address] 80472- 8666 Nov, Acute right ankle pain M25.571 [facility] [id number] [place] [address] 06662- 9186 Nov, [facility] [id number] [place] [address] 64863- 7876 Oct, [facility] [id number] [place] [address] 81946- 7808 Oct, Plantar wart of both feet B07.0 [facility] [id number] [place] [address] 93212- 0080 Oct, [facility] [id number] [place] [address] 10366- 3174 Oct, Acute right ankle pain M25.571 and Plantar wart of both feet B07.0 [facility] [id number] [place] [address] 96021- 7464 September, Other chronic pain G89.29 [facility] [address] [address]- 5210 September, Other chronic pain G89.29 [facility] [id number] [place] [address] 54231- 5714 September, Other chronic pain G89.29 [facility] [address] [address]- 6456 Aug, Mood disorder F39 [facility] [id number] [place] [address] 26847- 8509 16 Aug, 2017 Other chronic pain G89.29 ; Controlled type 2 diabetes mellitus without complication, without long-term current use of insulin E11.9 ; Low back pain M54.5 and Tinea corporis B35.4 [place] [address] 43499- 9785 13 Aug, 2017 Mood disorder F39 and Anxiety F41.9 [place] [address] 97385- 2122 Aug, Mood disorder F39 and Anxiety F41.9 [place] [address] 33572- 3395 Jul, [facility] [place] [address] 43711 -3953 Jul, Scabies B86 and BMI 45.0-49.9, adult Z68.42 [place] [address] 90930- 2040 Jul, [place] [address] 40272- 8281 Jul, Mood disorder F39 and Anxiety F41.9 [place] [address] 88322- 3246 Jul, [facility] [place] [address] 27534 -1695 27 Jun, 2017 Bronchitis J40 ; Dark urine R82.99 and BMI 45.0-49.9, adult Z68.42 [place] [address] 58440- 7611 14 Jun, 2017 Acute pain of right shoulder M25.511 and Acute pain of right knee M25.561 [place] [address] 28666- 1477 May, BMI 40.0-44.9, adult Z68.41 ; Controlled type 2 diabetes mellitus without complication, without long-term current use of insulin E11.9 ; Muscle cramping R25.2 ; Hot flashes R23.2 ; Mood disorder F39 ; Anxiety F41.9 and Morbid (severe) obesity due to excess calories E66.01 [place] [id number] [place] [address] 29662- 6387 May, BMI 40.0-44.9, adult Z68.41 ; Controlled type 2 diabetes mellitus without complication, without long-term current use of insulin E11.9 ; Muscle cramping R25.2 and Hot flashes R23.[address] 73632- 7329 May, Tachycardia with heart rate 121-140 beats per minute R00.0 ; Morbid (severe) obesity due to excess calories E66.01 ; Diabetes type 2, controlled E11.9 and Enlarged thyroid gland E04.[address] 87218- 1189 May, Encounter for well woman exam with [...] Dysuria R30.0 and Screening breast examination Z12.31 [place] [id number] [place] [address] 08888- 6557 Apr, Mood disorder F39 ; Other chronic pain G89.29 and Anxiety F41.9 [place] [id number] [place] [address] 29756- 0013 Apr, Lumbago with sciatica, left side M54.42 and Other chronic pain G89.[address] 26608- 1932 Apr, Lupus erythematosus L93.0 [facility] [id number] [place] [address] 56520- 7582 Mar, Plantar wart of both feet B07.0 [facility] [id number] [place] [address] 34319- 6856 Mar, Lupus erythematosus L93.0 and Sinus drainage J34.89 [facility] [id number] [place] [address] 75136- 3840 Mar, Mood disorder F39 ; Other chronic pain G89.29 and Anxiety F41.9 [facility] [id number] [place] [address] 06818- 8834 Mar, Mood disorder F39 ; Arthritis M19.90 and Plantar warts B07.0 [facility] [id number] [place] [address] 88292- 8865 Feb, Lupus erythematosus L93.0 [facility] [id number] [place] [address] 66383- 9974 Feb, Other chronic pain G89.29 [facility] [id number] [place] [address] 43052- 0842 Feb, Mood disorder F39 and Anxiety F41.9 [facility] [id number] [place] [address] 48600- 6258 Jan, [facility] [id number] [place] [address] 09257- 8486 Jan, Mood disorder F39 [facility] [id number] [place] [address] 22262- 0500 Dec, Nail, ingrown L60.0 [facility] [id number] [place] [address] 41376- 0496 Dec, Nail, ingrown L60.0 [facility] [id number] [place] [address] 76427- 1135 Nov, Mood disorder F39 and Anxiety F41.9 [facility] [address] [place] [address] 39916- 0361 Nov, Sinus drainage J34.89 ; Hot flashes R23.2 ; Anxiety F41.9 and Diabetes type 2, controlled E11.9 [facility] [id number] [place] [address] 65282- 6829 Nov, Nail, ingrown L60.0 [facility] [id number] [place] [address] 45293- 1679 Oct, Anxiety F41.9 and Mood disorder F39 [facility] [id number] [place] [address] 81697- 8861 Oct, Nail, ingrown L60.0 and Anxiety F41.9 [facility] [id number] [place] [address] 10962- 7516 Oct, Lupus erythematosus L93.0 [facility] [id number] [place] [address] 19524- 3631 September, [facility] [id number] [place] [address] 34179- 2706 September, [facility] [id number] [place] [address] 61040- 7549 September, Lupus erythematosus L93.0 [facility] [id number] [place] [address] 07364- 4720 Aug, [facility] [id number] [place] [address] 86128- 8140 Aug, Mood disorder F39 and Anxiety F41.9 [facility] [id number] [place] [address] 25980- 6985 Aug, Lupus erythematosus L93.0 ; Diabetes type 2, controlled E11.9 and Localized edema R60.0 [facility] [id number] [place] [address] 86862- 2432 Aug, [facility] [address] [place] [address] 64116- 1114 Jul, Anxiety F41.9 and Mood disorder F39 [place] [id number] [place] [address] 39981- 6953 Jul, Diabetes type 2, controlled E11.9 [place] [id number] [place] [address] 35295- 2276 Jun, Anxiety F41.9 [place] [id number] [place] [address] 12950- 3642 May, [place] [address] 54831- 5962 May, [place] [id number] [place] [address] 43065- 2008 May, Nausea R11.0 ; Other chronic pain G89.29 and Pain in right knee M25.561 [place] [id number] [place] [address] 35783- 1071 May, [place] [id number] [place] [address] 82082- 7428 Apr, Tear of medial meniscus of right knee, current, unspecified tear type, subsequent encounter S83.241D and Tear of lateral meniscus of right knee, current, unspecified tear type, subsequent encounter S83.281D [place] [address] [place] [address] 83958- 0065 Apr, Anxiety F41.9 and Mood disorder F39 [place] [address] [place] [address] 35905- 7402 Apr, Anxiety F41.9 [place] [id number] [place] [address] 08273- 8539 Apr, [place] [id number] [place] [address] 82572- 7057 Mar, [place] [id number] [place] [address] 26843- 3263 Mar, Lupus erythematosus L93.0 and Diabetes type 2, controlled E11.9 [facility] [id number] [place] [address] 32962- 0843 Mar, Mood disorder F39 [facility] [id number] [place] [address] 26385- 5604 Mar, Tear of lateral meniscus of right knee, current, unspecified tear type, initial encounter S83.281A and Osteoarthritis of right knee, unspecified osteoarthritis type M17.9 [facility] [id number] [place] [address] 42675- 3693 Mar, [facility] [id number] [place] [address] 32358- 1987 Feb, Mood disorder F39 [facility] [id number] [place] [address] 56717- 9167 Feb, Rash R21 [facility] [id number] [place] [address] 96905- 0268 Feb, [facility] [id number] [place] [address] 26188- 4880 Jan, Other chronic pain G89.29 and Muscle spasm M62.838 [facility] [id number] [place] [address] 40069- 2843 Jan, Mood disorder F39 [facility] [id number] [place] [address] 38201- 0883 Jan, Pain in right knee M25.561 ; Other chronic pain G89.29 and Muscle spasm M62.838 [facility] [id number] [place] [address] 90655- 2676 Dec, [facility] [id number] [place] [address] 60828- 0128 Dec, [facility] [id number] [place] [address] 31940- 6889 Nov, [place] [address] [address]- 9290 Nov, Mood disorder F39 [place] [id number] [place] [address] 01658- 1206 Nov, Diabetes type 2, controlled E11.9 ; Bronchitis J40 ; Edema, unspecified type R60.9 ; Weight gain R63.5 and Right knee pain, unspecified chronicity M25.561 [place] [address] [place] [address] 75007- 4536 Oct, Mood disorder F39 [place] [address] [address] [id number] [place] [address] 45244- 9533 Oct, Lupus erythematosus L93.0 and Bilateral edema of lower extremity R60.0 [place] [address] [place] [id number] [place] [address] 20182- 7357 Oct, Mood disorder F39 and Anxiety F41.9 [place] [address] [place] [address] 65846- 8819 September, Mood disorder F39 ; Anxiety F41.9 and Anger reaction R45.4 [place] [address] [place] [address] 74882- 1387 September, Diabetes type 2, controlled E11.9 ; Edema, unspecified type R60.9 and Fatigue, unspecified type R53.83 [place] [address] [place] [address] 00488- 6974 Aug, Mood disorder F39 and Generalized anxiety disorder F41.1 [place] [address] [place] [address] 12345- 9169 Aug, Diabetes type 2, controlled E11.9 ; Sinusitis J32.9 and Mood disorder F39 [place] [address] [place] [address] 74199- 2076 Aug, Lupus erythematosus L93.0 [place] [address] [address]- 1466 14 Aug, 2015 [facility] [id number] [place] [address] 35545- 3489 07 Aug, 2015 [facility] [id number] [place] [address] 24415- 7669 25 Jul, 2015 Diabetes type 2, controlled E11.9 [facility] [id number] [place] [address] 00056 2546 Jul, Mood disorder F39 and Depression F32.9 [facility] [id number] [place] [address] 18803- 4580 Jul, Lupus erythematosus L93.0 and Diabetes type 2, controlled E11.9 [facility] [id number] [place] [address] 95281- 1943 Jul, Mood disorder F39 and Anxiety F41.9 [facility] [id number] [place] [address] 44956- 8635 Jul, [facility] [id number] [place] [address] 26955- 1806 Jul, [facility] [id number] [place] [address] 17912- 0483 Jun, Mood disorder F39 and Anxiety F41.9 [facility] [id number] [place] [address] 30285- 0561 Jun, Mood disorder F39 [facility] [id number] [place] [address] [id number]- [id number] 18 Jun, 2015 [facility] [id number] [place] [address] [id number]- [id number] 15 Jun, 2015 [facility] [id number] [place] [address] 69621- [phone] 08 Jun, 2015 Mood disorder F39 [facility] [id number] [place] [address] 24224- 0677 Jun, [facility] [id number] [address] May, [facility] [id number] [place] [address] 46683- 5757 May, [facility] [id number] [place] [address] 35226- 2710 May, [facility] [id number] [place] [address] 39267- 8696 May, [facility] [id number] [place] [address] 50882- 6204 May, Anxiety F41.9 ; Dermatomyositis M33.90 and Diabetes type 2, controlled E11.9 [facility] [id number] [place] [address] 19972 -9092 May, Sinusitis J32.9 and Cough R05 [facility] [id number] [place] [address] 85210- [phone] May, Mood disorder F39 [facility] [id number] [place] [address] 78231- 9878 May, Adjustment disorder with mixed anxiety and depressed mood F43.23 [facility] [id number] [place] [address] 48749- 1945 Apr, [facility] [id number] [place] [address] 44713- 6780 Apr, [facility] [id number] [place] [address] 61841- 6787 Apr, Generalized anxiety disorder F41.1 and Mood disorder F39 [facility] [id number] [place] [address] 61615- [id number] Mar, [facility] [id number] [place] [address] [address]25- 6437 Mar, [facility] [id number] [place] [address] 33113- 6803 Mar, [facility] [id number] [place] [address] 16024- 0760 Mar, Mood disorder F39 [facility] [id number] [place] [address] 25419- 6497 Feb, [facility] [id number] [place] [address] 80677- 2279 Feb, Diabetes E11.9 and Bronchitis J40 [facility] [id number] [place] [address] 46594- 4574 Feb, [facility] [address] 28756- 4602 Feb, [facility] [id number] [place] [address] 42568- 7083 Feb, Major depression, recurrent, full remission F33.42 and KELLY ( generalized anxiety disorder) F41.1 [facility] [id number] [place] [address] 81650- 5782 Feb, [facility] [address] 01167- 2778 Feb, Single major depressive episode, in partial or unspecified remission F32.5 [facility] [id number] [place] [address] 72134- 3444 Jan, Fatigue 780.79 [facility] [id number] [place] [address] 72776- 5111 Jan, [facility] [id number] [place] [address] 58079- 7074 Jan, Diabetes with other specified manifestations, type II or unspecified type, not stated as uncontrolled 250.80 [facility] [id number] [place] [address] 20335- 9177 Jan, [facility] [id number] [place] [address] 35630- 6706 Dec, Hot flashes 627.2 ; Memory loss 780.93 and Joint pain 719.40 [id number] [place] [address] 56472- 7810 Dec, Major depression, recurrent 296.30 ; Generalized anxiety disorder 300.02 ; Adjustment disorder with depressed mood 309.0 and No condition on Independence II V71.09 [id number] [place] [address] 19434- 9290 Dec, [id number] [place] [address] 59590- 9249 Nov, Cognitive and neurobehavioral dysfunction 294.9 ; Major depressive disorder, recurrent episode, moderate degree 296.32 and Anxiety state , unspecified 300.00 [id number] [place] [address] 11706- 9107 Nov, [id number] [place] [address] 28293- 9931 Nov, Bronchitis 490 and Diabetes with other specified manifestations, type II or unspecified type, not stated as uncontrolled 250.80 [id number] [place] [address] 68000- 1323 Nov, Major depressive disorder, recurrent episode, moderate 296.32 and Anxiety disorder, unspecified 300.[id number] [place] [address] 99765- 7699 Nov, Anxiety, generalized 300.02 ; Intermittent explosive disorder 312.34 ; No condition on Independence II V71.09 and No condition on axis III V71.09 [id number] [place] [address] 70592- 4927 Oct, Diabetes with other specified manifestations, type II or unspecified type, not stated as uncontrolled 250.80 ; Urinary tract infection, site not specified 599.0 and Bronchitis [id number] [place] [address] 51328- 2556 Oct, Intermittent explosive disorder 312.34 ; Bipolar 1 disorder , depressed, moderate 296.52 ; Major depression, chronic 296.20 ; No condition on Independence II V71.09 and No condition on axis III V71.09 [id number] [place] [address] 28874- 5161 Oct, Major depressive disorder, recurrent episode, moderate 296.32 ; Anxiety state 300.00 ; Cognitive decline 294.9 and No condition on Independence II V71.09 [place] [id number] [place] [address] 72919- 6965 Oct, [place] [id number] [place] [address] 72349- 5733 Oct, Major depressive disorder, recurrent episode, moderate 296.32 ; Anxiety disorder, unspecified 300.00 and Persistent disorder of initiating or maintaining sleep 307.42 [address] [id number] [place] [address] 93038- 0996 September, Diabetes with other specified manifestations, type II or unspecified type, not stated as uncontrolled 250.80 ; Memory loss 780.93 and Cognitive complaints 799.59 [address] [id number] [place] [address] 21341- 3405 September, No condition on Independence II V71.09 ; Major depression, recurrent 296.30 and Persistent mood [affective] disorder, unspecified 296.90 [address] [id number] [address]- 9254 Aug, [address] [id number] [place] [address] 03907- 6718 Aug, [address] [id number] [place] [address] 18457- 8188 Aug, [place] [id number] [place] [address] 19918- 6673 Jul, [facility] [id number] [address]- 0548 Jul, [facility] [id number] [place] [address] 04973- 6797 04 Jul, 2014 [facility] [place] [facility] [address] [id number] [place] [address]- 2479 Jul, 2014 [facility] [place] [facility] [address] [id number] [place] [address]- 7529 Jul, 2014 [facility] [place] [facility] [address] [facility] [id number] [place] [address]- 7613 Jun, 2014 [facility] [place] [facility] [address] [id number] [place] [address]- 7296 Jun, 2014 [facility] [place] [facility] [address] [id number] [place] [address]- 2206 Jun, 2014 [facility] [place] [facility] [address] [facility] [id number] [place] [address]- 6226 Jun, 2014 [facility] [place] [facility] [address] [facility] [id number] [place] [address]- 9944 Jun, 2014 [facility] [place] [facility] [address] [facility] [id number] [place] [address]- 2542 Jun, 2014 [facility] [place] [facility] [address] [facility] [id number] [place] [address]- 7256 Jun, 2014 [facility] [place] [facility] [address] [facility] [id number] [place] [address]- 2209 Jun, 2014 [facility] [place] [facility] [address] [facility] [id number] [place] [address] 2546 Jun, 2014 [facility] [place] [facility] [address] [facility] [id number] [place] [address]- 2543 Jun, 2014 [facility] [place] [facility] [address] [facility] [id number] [place] [address]- 7123 Jun, 2014 [facility] [place] [facility] [address] [facility] [id number] [place] [address]- 4267 Jun, 2014 [facility] [place] [facility] [address] [facility] [id number] [place] [address]- 1773 Jun, [facility] [place] [facility] [address] [id number] [place] [address]- 8112 May, [facility] [place] [facility] [address] [id number] [place] [address]- 6909 May, [facility] [place] [facility] [address] [id number] [place] [address]- 0222 Apr, [facility] [place] [facility] [address] [id number] [place] [address]- 4748 Apr, [facility] [place] [facility] [address] [id number] [place] [address]- 6685 Apr, [facility] [place] [facility] [address] [id number] [place] [address]- 8001 Apr, [facility] [place] [facility] [address] [id number] [place] [address]- 5667 Apr, [facility] [place] [facility] [address] [id number] [place] [address]- 2482 Apr, [facility] [place] [facility] [address] [id number] [place] [address]- 4037 Apr, [facility] [place] [facility] [address] [id number] [place] [address]- 8087 Apr, [facility] [place] [facility] [address] [id number] [place] [address]- 2067 Apr, [facility] [place] [facility] [address] [id number] [place] [address]- 8514 Apr, [facility] [place] [facility] [address] [id number] [place] [address]- 2580 Apr, [facility] [place] [facility] [address] [id number] [place] [address]- 3959 Apr, [facility] [place] [facility] [address] [id number] [place] [address]- 6737 Apr, [facility] [place] [facility] [address] [id number] [place] [address]- 1409 Apr, [facility] [place] [facility] [address] [id number] [place] [address]- 7737 Apr, [facility] [place] [facility] [address] [id number] [place] [address]- 8965 Apr, [facility] [place] [facility] [address] [id number] [place] [address]- 0970 Apr, [facility] [place] [facility] [address] [id number] [place] [address]- 2728 Apr, [facility] [place] [facility] [address] [id number] [place] [address]- 7249 Apr, [facility] [place] [facility] [address] [id number] [place] [address]- 9614 Apr, [facility] [place] [facility] [address] [id number] [place] [address]- 1926 Mar, [facility] [place] [facility] [address] [id number] [place] [address]- 1670 Mar, [facility] [place] [facility] [address] [id number] [place] [address]- 1722 Mar, [facility] [place] [facility] [address] [id number] [place] [address]- 1404 Mar, [facility] [place] [facility] [address] [id number] [place] [address]- 6911 Mar, [facility] [place] [facility] [address] [id number] [place] [address]- 8626 Mar, [facility] [place] [facility] [address] [id number] [place] [address]- 2890 Mar, [facility] [place] [facility] [address] [id number] [place] [address]- 8057 Mar, [facility] [place] [facility] [address] [id number] [place] [address]- 2417 Mar, [facility] [place] [facility] [address] [id number] [place] [address]- 6127 Mar, [facility] [place] [facility] [address] [id number] [place] [address]- 0975 Mar, [facility] [place] [facility] [address] [id number] [place] [address]- 9435 Mar, [facility] [place] [facility] [address] [id number] [place] [address]- 9181 Mar, [facility] [place] [facility] [address] [id number] [place] [address]- 3099 Feb, [facility] [place] [facility] [address] [id number] [place] [address]- 8389 Feb, [facility] [place] [facility] [address] [id number] [place] [address]- 6639 Feb, [facility] [place] [facility] [address] [id number] [place] [address]- 8494 Feb, [facility] [place] [facility] [address] [id number] [place] [address]- 7488 Feb, [facility] [place] [facility] [address] [id number] [place] [address]- 2108 Feb, [facility] [place] [facility] [address] [id number] [place] [address]- 4714 Feb, [facility] [place] [facility] [address] [id number] [place] [address]- 1620 Feb, [facility] [place] [facility] [address] [id number] [place] [address]- 6422 Feb, [facility] [place] [facility] [address] [id number] [place] [address]- 0410 Feb, [facility] [place] [facility] [address] [id number] [place] [address]- 4116 Feb, [facility] [place] [facility] [address] [id number] [place] [address]- 2710 Feb, [facility] [place] [facility] [address] [id number] [place] [address]- 9390 Feb, [facility] [place] [facility] [address] [id number] [place] 7956 Feb, [facility] [place] [facility] [address] [id number] [place] [address]- 4109 Feb, [facility] [place] [facility] [address] [id number] [place] [address]- 5670 Jan, [facility] [place] [facility] [address] [id number] [place] [address]- 8153 08 Jan, 2014 [facility] [place] [facility] [address] [id number] [place] [address]- 3953 Jan, [facility] [place] [facility] [address] [id number] [place] [address]- 5709 Jan, [facility] [place] [facility] [address] [id number] [place] [address]- 3709 Jan, [facility] [place] [facility] [address] [id number] [place] [address]- 2713 Dec, [facility] [place] [facility] [address] [id number] [place] [address]- 7126 Dec, [facility] [place] [facility] [address] [id number] [place] [address]- 5876 Dec, [facility] [place] [facility] [address] [id number] [place] [address]- 0226 Dec, [facility] [place] [facility] [address] [id number] [place] [address]- 3263 Nov, [facility] [place] [facility] [address] [id number] [place] [address]- 7219 Nov, [facility] [place] [facility] [address] [id number] [place] [address]- 6460 Nov, [facility] [place] [facility] [address] [id number] [place] [address]- 8526 Nov, 2013 [facility] [address] [id number] [place] [address]- 1808 Nov, 2013 [facility] [place] [facility] [address] [id number] [place] [address]- 3311 Nov, 2013 [facility] [place] [facility] [address] [id number] [place] [address]- 4294 Nov, 2013 [facility] [place] [facility] [address] [id number] [place] [address]- 9304 Nov, [facility] [place] [facility] [address] [id number] [place] [address]- 7339 Nov, [facility] [place] [facility] [address] [id number] [place] [address]- 3038 Nov, [facility] [place] [facility] [address] [id number] [place] [address]- 8130 Oct, [facility] [place] [facility] [address] [id number] [place] [address]- 9146 Oct, [facility] [place] [facility] [address] [id number] [place] [address]- 1607 September, [facility] [place] [facility] [address] [id number] [place] [address]- 9563 September, [facility] [place] [facility] [address] [id number] [place] [address]- 8594 September, [facility] [place] [facility] [address] [id number] [place] [address]- 4326 September, [facility] [place] [facility] [address] [id number] [place] [address]- 1504 16 Aug, 2013 [facility] [place] [facility] [address] [id number] [place] [address]- 3494 Aug, [facility] [place] [facility] [address] [id number] [place] [address]- 5820 Aug, [facility] [place] [facility] [address] [id number] [place] [address]- 1192 24 Jul, 2013 [facility] [place] [facility] [address] [id number] [place] [address]- 8026 24 Jul, 2013 [facility] [place] [facility] [address] [id number] [place] [address]- 7031 14 Jul, 2013 [facility] [place] [facility] [address] [id number] [place] [address]- 5053 14 Jul, 2013 [facility] [place] [facility] [address] [id number] [place] [address]- 9445 May, [facility] [place] [facility] [address] [id number] [place] [address]- 2901 May, [facility] [place] [facility] [address] [id number] [place] [address]- 6996 May, [facility] [place] [facility] [address] [id number] [place] [address]- 4252 15 Mar, 2013 [facility] [place] [facility] [address] [id number] [place] [address]- 6233 15 Mar, 2013 [facility] [place] [facility] [address] [id number] [place] [address]- 5765 Mar, [facility] [place] [facility] [address] [id number] [place] [address]- 8667 Mar, [facility] [place] [facility] [address] [id number] [place] [address]- 8622 16 Feb, 2013 [facility] [place] [facility] [address] [id number] [place] [address]- 5906 16 Feb, 2013 [facility] [place] [facility] [address] [id number] [place] [address]- 5075 04 Feb, 2013 [facility] [place] [facility] [address] [id number] [place] [address]- 9456 16 Jan, 2013 [facility] [place] [facility] [address] [id number] [place] [address]- 7364 Jan, [facility] [address] [id number] [place] [address]- 7704 Jan, [facility] [place] [facility] [address] [id number] [place] [address]- 4997 Dec, [facility] [address] [id number] [place] [address]- 5392 Dec, [facility] [place] [facility] [address] [id number] [place] [address]- 6934 Dec, [facility] [address] [id number] [place] [address]- 4792 Dec, [facility] [address] [id number] [place] [address]- 8736 Nov, [facility] [address] [id number] [place] [address]- 4309 Oct, [facility] [address] [id number] [place] [address]- 9530 Oct, [facility] [address] [id number] [place] [address]- 4861 September, [facility] [address] [id number] [place] [address]- 8438 September, [facility] [address] [id number] [place] [address]- 5258 September, [facility] [place] [facility] [address] [id number] [place] [address]- 2917 Aug, [facility] [place] [facility] [address] [id number] [place] [address]- 2178 Aug, [facility] [place] [facility] [address] [id number] [place] [address]- 7638 Aug, [facility] [place] [facility] [address] [id number] [place] [address]- 7998 Aug, [facility] [place] [facility] [address] [id number] [place] [address]- 0428 26 Jul, 2012 [facility] [address] [id number] [place] [address]- 4873 25 Jul, 2012 [facility] [place] [facility] [address] [id number] [place] [address]- 8749 21 Jul, 2012 [facility] [place] [facility] [address] [id number] [place] [address]- 3145 15 Jul, 2012 [facility] [place] [facility] [address] [id number] [place] [address]- 4127 14 Jul, 2012 [facility] [place] [facility] [address] [id number] [place] [address]- 1754 13 Jul, 2012 [facility] [place] [facility] [address] [id number] [place] [address]- 7748 13 Jul, 2012 [facility] [place] [facility] [address] [id number] [place] [address]- 0280 Jun, [facility] [place] [facility] [address] [id number] [place] [address]- 8067 Jun, [facility] [place] [facility] [address] [id number] [place] [address]- 4624 Jun, [facility] [place] [facility] [address] [id number] [place] [address]- 4191 Jun, [facility] [place] [facility] [address] [id number] [place] [address]- 4374 May, [facility] [place] [facility] [address] [id number] [place] [address]- 4972 May, [facility] [place] [facility] [address] [id number] [place] [address]- 6002 May, [facility] [place] [facility] [address] [id number] [place] [address]- 4735 May, [facility] [place] [facility] [address] [id number] [place] [address]- 5334 May, [facility] [place] [facility] [address] [id number] [place] [address]- 2336 Apr, [facility] [place] [facility] [address] [id number] [place] 8816 Apr, [facility] [place] [facility] [address] [facility] [id number] [place] [address]- 9115 Mar, [facility] [place] [facility] [address] [id number] [place] [address]- 1545 Mar, [facility] [place] [facility] [address] [id number] [place] [address]- 8847 Mar, [facility] [place] [facility] [address] [id number] [place] [address]- 2867 Mar, [facility] [place] [facility] [address] [id number] [place] [address]- 7765 Mar, [facility] [place] [facility] [address] [id number] [place] [address] Mar, [facility] [place] [facility] [address] [id number] [place] [address] Mar, [facility] [place] [facility] [address] [id number] [place] [address] Mar, [facility] [place] [facility] [address] [id number] [place] [address] Mar, [facility] [place] [facility] [address] [id number] [place] [address] Mar, [facility] [place] [facility] [address] [id number] [place] [address] Feb, [facility] [place] [facility] [address] [id number] [place] [address] Feb, [facility] [place] [facility] [address] [id number] [place] [address] Feb, [facility] [place] [facility] [address] [id number] [place] [address] Feb, [facility] [place] [facility] [address] [id number] [place] [address] Feb, [facility] [place] [facility] [address] [id number] [place] [address] Feb, [facility] [place] [facility] [address] [id number] [place] [address] Feb, [facility] [place] [facility] [address] [id number] [place] [address] Jan, [facility] [place] [facility] [address] [id number] [place] [address] Jan, [facility] [place] [facility] [address] [id number] [place] [address] Dec, [facility] [place] [facility] [address] [id number] [place] [address] Dec, [facility] [place] [facility] [address] [id number] [place] [address] Dec, [facility] [place] [facility] [address] [id number] [place] [address] Dec, [facility] [place] [facility] [address] [id number] [place] [address] 16 Dec, 2011 [facility] [place] [facility] [address] [id number] [place] [address] Dec, [facility] [place] [facility] [address] [id number] [place] [address] Nov, [facility] [place] [facility] [address] [id number] [place] [address] Nov, [facility] [place] [facility] [address] [id number] [place] [address] Nov, [facility] [place] [facility] [address] [id number] [place] [address] Nov, [facility] [address] [facility] [id number] [place] [address] September, [facility] [address] [facility] [id number] [place] [address] September, [facility] [address] [facility] [id number] [place] [address] September, [facility] [address] [facility] [id number] [place] [address] Jul, [facility] [address] [facility] [id number] [place] [address] Jun, [facility] [address] [facility] [id number] [place] [address] [address] Jun, [facility] [address] [facility] [id number] [place] [address] Jun, [facility] [address] [id number] [place] [address] Apr, [facility] [address] [facility] [id number] [place] [address] Mar, [facility] [address] [id number] [place] [address] Mar, [facility] [address] [facility] [id number] [place] [address] [address] Feb, [facility] [address] [facility] [id number] [place] [address] Feb, [facility] [address] [facility] [id number] [place] [address] Feb, [facility] [address] [facility] [id number] [place] [address] 10 Jul, 2009 [facility] [address] [facility] [id number] [place] [address] Feb, IMMUNIZATIONS No Known Immunizations SOCIAL HISTORY Never Assessed REASON FOR VISIT nerves in her face f/u. Pt states she isn't haven't any pain but it is flaring up agian. Augie Pt has been really tired and feeling exhausted . 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 for Feb, Active Terbinafine HCl 1 % Externally Twice a day 1 application to affected area 12h Aug, Active Actos 30 MG Orally Once a day 1 tablet 24h Feb, 30 day(s) Active Actos 30 MG TAKE ONE TABLET BY MOUTH ONCE DAILY 30 Active Benzonatate 100 MG TAKE ONE CAPSULE BY MOUTH THREE TIMES DAILY NEEDED 10 Active Glucometer Diabetic monitor, test strips, lancets, alcohol pad as directed Feb, Active Folic Acid 1 MG TAKE ONE TABLET BY MOUTH ONCE DAILY (DO NOT TAKE ON DAYS YOU TAKE METHOTREXATE) 30 Active Proventil HFA 108 (90 Base) MCG/ACT INHALE TWO PUFFS BY MOUTH FOUR TIMES DAILY NEEDED 25 Active Potassium Chloride Marie ER 20 MEQ TAKE ONE TABLET BY MOUTH ONCE DAILY WITH FOOD 30 Active HydrOXYzine HCl 25 MG Orally every 8 hrs 1 tablet as needed 8h Jan, 30 day(s) Active Furosemide 20 MG TAKE 1 TABLET BY MOUTH ONCE DAILY 30 Active Ondansetron 4 MG Orally every 4 hrs 1 tablet on the tongue and allow to dissolve as needed 4h Active Dulera 200-5 MCG/ACT Inhalation Twice a day 1 puff 12h Dec, Active Cymbalta 60 mg Orally Twice a day 1 capsule 12h Aug, Active Omeprazole Active Lisinopril-Hydrochlorothiazide 20-25 MG TAKE ONE TABLET BY MOUTH ONCE DAILY 30 Active Adjust Bath/Shower Seat/Back - use for showering Feb, Active Promethazine HCl 25 MG Orally every 12 hrs 1 tablet as needed 12h 30 day(s) Active Raised Toilet Seat - as directed Feb, Active Spironolactone 25 MG TAKE ONE TABLET BY MOUTH ONCE DAILY 30 Active Tyro 10-325 MG Orally every 6 hrs 1 tablet as needed 6h Feb, 28 days Active Actos 30 MG Orally Once a day 1 tablet 24h Feb, Active Magnesium Oxide 400 mg Orally Once a day 1 tablet as needed 24h 30 day(s) Active Walker 1 as directed Dec, Active GlipiZIDE 5 mg Orally Once a day 1 tablet 24h Feb, Active Methotrexate 2.5 MG Orally 1 time per week 6 Active PredniSONE 20 mg 3 tablets daily x 7 days, 2 tabs daily x 7 days, then daily as previous dose Active Glucocard Expression Test - as directed 24h Nov, Active Neurontin 600 MG Orally Three times a day 1 capsule 8h Nov, 30 day(s) Active RESULTS No Results [...]
--- OUTSIDE RECORDS SUMMARY | 2018-05-09 22:32 | XMS REPORT ---
Author Author JASON ROSS [facility] Address [address] [place] [address] Care Team Providers Care Fitting Supervisor Name Role Phone CODY JASON Unavailable PROBLEMS Type Condition ICD9-CM Code WEW05-BX Code Onset Dates Condition Status SNOMED Code Problem Dermatomyositis M33.90 Active 105472313 Problem Lumbago with sciatica, right side M54.41 Active 102018347 Problem Morbid (severe) obesity due to excess calories E66.01 Active 603032702 Problem Diabetes with other specified manifestations, type II or unspecified type, not stated as uncontrolled 250.80 Active 707814809 Problem Osteoarthritis of right knee, unspecified osteoarthritis type M17.9 Active 765381111 Problem Hypertension, unspecified type I10 Active 70531653 Problem Menopause Z78.0 Active 727309373 Problem Diabetes type 2, controlled E11.9 Active 64871997 Problem Facial droop R29.810 Active 71950640 Problem Gait disturbance R26.9 Active 03965351 Problem Other specified mental disorders due to known physiological condition F06.8 Active 57908270 Problem Frequent falls R29.6 Active 104179515 Problem Plantar warts B07.0 Active 17163063 Problem Arthritis M19.90 Active 6751626 Problem Anxiety F41.9 Active 60412472 Problem Other chronic pain G89.29 Active 80609708 Problem Controlled type 2 diabetes mellitus without complication, without long -term current use of insulin E11.9 Active 977082348 Problem Body mass index (BMI) of 45.0-49.9 in adult Z68.42 Active 361027278 Problem Allergic rhinitis due to pollen J30.1 Active 57432192 Problem Plantar wart of both feet B07.0 Active [id number] Problem Tachycardia with heart rate 121-140 beats per minute R00.0 Active 0315994 Problem Mood disorder F39 Active 27616498 Problem Lumbago with sciatica, left side M54.42 Active 329319625 Problem Enlarged thyroid gland E04.9 Active 1056489 ALLERGIES No Information ENCOUNTERS Encounter Location Date Diagnosis [place] [id number] [place] [address] 88677- 9378 Apr, [place] [id number] [place] [address] 73103- 1262 Mar, [place] [address] 19082- 0691 Mar, [place] [address] 88449- 7606 Mar, [place] [address] 80363- 5653 Feb, BMI 40.0-44.9, adult Z68.41 ; Diabetes type 2, controlled E11.9 ; Osteoarthritis of right knee, unspecified osteoarthritis type M17.9 ; Dermatomyositis M33.90 ; Hypertension, unspecified type I10 and Fatigue, unspecified type R53.83 [place] [id number] [place] [address] 96828- 5869 Feb, [place] [id number] [place] [address] 91077- 9088 Feb, BMI 45.0-49.9, adult Z68.42 [place] [id number] [place] [address] 31636- 1531 Feb, Mood disorder F39 [place] [id number] [place] [address] 43952- 4586 Feb, [place] [id number] [place] [address] 98646- 6375 Feb, Mood disorder F39 [place] [id number] [place] [address] 53460- 8246 Feb, Other chronic pain G89.29 ; Anxiety F41.9 and Diabetes with other specified manifestations, type II or unspecified type, not stated as uncontrolled 250.80 [place] [id number] [place] [address] 57133- 1757 Feb, BMI 40.0-44.9, adult Z68.41 [place] [id number] [place] [address] 39342- 6748 Feb, Pain in right knee M25.561 and Other chronic pain G89.29 [place] [id number] [place] [address] 03075- 0809 Feb, [place] [id number] [place] [address] 66913- 9081 Feb, BMI 45.0-49.9, adult Z68.42 ; Gait disturbance R26.9 ; Other specified mental disorders due to known physiological condition F06.8 ; Weakness R53.1 ; Frequent falls R29.6 and Self-care deficit for bathing R46.0 [place] [id number] [place] [address] 70366- 7623 Feb, Pain in right knee M25.561 and Other chronic pain G89.29 [place] [id number] [place] [address] 89579- 5466 Jan, Mood disorder F39 [place] [id number] [place] [address] 49681- 6447 Jan, BMI 45.0-49.9, adult Z68.42 and 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 [id number] [place] [address] 70748- 9764 Jan, [facility] [id number] [place] [address] 75708- 5054 21 Jan, 2018 [facility] [address] 92096- 7181 19 Jan, 2018 Allergic reaction to drug, initial encounter T78.40XA [place] [id number] [place] [address] 27738- 0515 17 Jan, 2018 BMI 45.0-49.9, adult Z68.42 and Facial droop R29.810 [place] [id number] [place] [address] 45379- 8685 14 Jan, 2018 Mood disorder F39 [place] [address] 40409- 8543 11 Jan, 2018 Dermatomyositis M33.90 and BMI 40.0-44.9, adult Z68.41 [place] [id number] [place] [address] 31645- 3119 10 Jan, 2018 [place] [id number] [place] [address] 01156- 2345 05 Jan, 2018 [place] [id number] [place] [address] 22839- 7448 04 Jan, 2018 Irritation of left eye H57.8 and BMI 40.0-44.9, adult Z68.41 [facility] [id number] [place] [address] 32294- 4136 Dec, Diabetes type 2, controlled E11.9 [facility] [id number] [place] [address] 37005- 3024 Dec, Acute right ankle pain M25.571 [place] [id number] [place] [address] 07241- 4280 Dec, Other chronic pain G89.29 ; Diabetes type 2, controlled E11.9 ; Gait disturbance R26.9 ; Weakness R53.1 and Muscle spasm M62.838 [facility] [id number] [place] [address] 56867- 0831 Dec, Acute non-recurrent maxillary sinusitis J01.00 [facility] [id number] [place] [address] 97917- 6632 Dec, [facility] [address] 29585- 5751 Dec, [facility] [address] 79293- 5177 Dec, Acute non-recurrent maxillary sinusitis J01.00 [facility] [id number] [place] [address] 62150- 0593 Dec, Lumbago with sciatica, right side M54.41 and Lupus erythematosus L93.0 [facility] [id number] [place] [address] 75442- 4373 Dec, Mood disorder F39 [facility] [id number] [place] [address] 23522- 0839 Dec, Mood disorder F39 [facility] [id number] [place] [address] 26347- 9082 Dec, [facility] [id number] [place] [address] 02099- 2711 Dec, Acute right ankle pain M25.571 [facility] [id number] [place] [address] 78047- 6402 Nov, Lumbar radiculopathy M54.16 [facility] [id number] [place] [address] 68238- 6292 Nov, [facility] [id number] [place] [address] 37132- 1371 Nov, Mood disorder F39 [facility] [id number] [place] [address] 05884- 2481 Nov, Lumbago with sciatica, right side M54.41 and Other chronic pain G89.29 [facility] [id number] [place] [address] 40005- 4534 Nov, Acute right ankle pain M25.571 [facility] [id number] [place] [address] 49286- 4379 Nov, [facility] [id number] [place] [address] 41661- 0403 Oct, [place] [id number] [place] [address] 52496- 2921 Oct, Plantar wart of both feet B07.0 [place] [id number] [place] [address] 56611- 5457 Oct, [facility] [id number] [place] [address] 89758- 5891 Oct, Acute right ankle pain M25.571 and Plantar wart of both feet B07.0 [place] [id number] [place] [address] 58565- 2576 September, Other chronic pain G89.29 [facility] [id number] [place] [address] 78240- 0798 September, Other chronic pain G89.29 [facility] [id number] [place] [address] 28451- 1137 September, Other chronic pain G89.29 [place] [id number] [place] [address] 46232- 0017 Aug, Mood disorder F39 [facility] [id number] [place] [address] 10058- 9110 Aug, Other chronic pain G89.29 ; Controlled type 2 diabetes mellitus without complication, without long-term current use of insulin E11.9 ; Low back pain M54.5 and Tinea corporis B35.4 [place] [id number] [place] [address] 43157- 2676 Aug, Mood disorder F39 and Anxiety F41.9 [place] [id number] [place] [address] 46495- 3066 Aug, Mood disorder F39 and Anxiety F41.9 [place] [address] 79666- 8617 Jul, [facility] [place] [address] 26220 -7052 Jul, Scabies B86 and BMI 45.0-49.9, adult Z68.42 [place] [address] 70473- 5525 Jul, [place] [address] 80213- 0524 Jul, Mood disorder F39 and Anxiety F41.9 [place] [id number] [place] [address] 60946- 9024 Jul, [facility] [place] [id number] [place] [address] 81814 -4989 27 Jun, 2017 Bronchitis J40 ; Dark urine R82.99 and BMI 45.0-49.9, adult Z68.42 [place] [id number] [place] [address] 73282- 1670 14 Jun, 2017 Acute pain of right shoulder M25.511 and Acute pain of right knee M25.561 [place] [address] 12078- 2550 May, BMI 40.0-44.9, adult Z68.41 ; Controlled type 2 diabetes mellitus without complication, without long-term current use of insulin E11.9 ; Muscle cramping R25.2 ; Hot flashes R23.2 ; Mood disorder F39 ; Anxiety F41.9 and Morbid (severe) obesity due to excess calories E66.01 [place] [address] [place] [address] 66554- 6548 May, BMI 40.0-44.9, adult Z68.41 ; Controlled type 2 diabetes mellitus without complication, without long-term current use of insulin E11.9 ; Muscle cramping R25.2 and Hot flashes R23.[address] 64001- 9251 May, Tachycardia with heart rate 121-140 beats per minute R00.0 ; Morbid (severe) obesity due to excess calories E66.01 ; Diabetes type 2, controlled E11.9 and Enlarged thyroid gland E04.[address] 08460- 9502 25 May, 2017 Encounter for well woman [...] Dysuria R30.0 and Screening breast examination Z12.31 [place] [id number] [place] [address] 55608- 7314 Apr, Mood disorder F39 ; Other chronic pain G89.29 and Anxiety F41.9 [place] [id number] [place] [address] 22047- 0639 Apr, Lumbago with sciatica, left side M54.42 and Other chronic pain G89.29 [place] [id number] [place] [address] 23167- 1634 Apr, Lupus erythematosus L93.0 [place] [id number] [place] [address] 60362- 8990 Mar, Plantar wart of both feet B07.0 [facility] [id number] [place] [address] 48155- 3474 Mar, Lupus erythematosus L93.0 and Sinus drainage J34.89 [facility] [id number] [place] [address]- 2546 Mar, Mood disorder F39 ; Other chronic pain G89.[address] [facility] [address] 37593- 1274 Mar, Mood disorder F39 ; Arthritis M19.90 and Plantar warts B07.0 [facility] [id number] [place] [address] 766859- 2817 Feb, Lupus erythematosus L93.0 [facility] [id number] [place] [address] 18192- 7902 Feb, Other chronic pain G89.29 [facility] [address] 73788- 2342 Feb, Mood disorder F39 [address]9 [facility] [id number] [place] [address] 05612- 8179 Jan, [facility] [id number] [place] [address] 52843- 5047 Jan, Mood disorder F39 [facility] [id number] [place] [address] 02247- 2148 Dec, Nail, ingrown L60.0 [facility] [id number] [place] [address] 34692- 2075 Dec, Nail, ingrown L60.0 [facility] [address] 43798- 1615 Nov, Mood disorder F39 [address]9 [facility] [id number] [place] [address] 34375- 0398 Nov, Sinus drainage J34.89 ; Hot flashes R23.2 ; Anxiety F41.9 and Diabetes type [address], [address] [facility] [id number] [place] [address] 92914- 9878 Nov, Nail, ingrown L60.0 [facility] [id number] [place] [address] 53524- 4939 Oct, Anxiety F41.9 and Mood disorder F39 [facility] [id number] [place] [address] 96345- 3307 Oct, Nail, ingrown L60.[address] [facility] [id number] [place] [address] 24931- 1085 Oct, Lupus erythematosus L93.0 [facility] [id number] [place] [address] 44117- 4751 September, [facility] [address] 17457- 8731 September, [facility] [id number] [place] [address] 46852- 8623 September, Lupus erythematosus L93.0 [facility] [id number] [place] [address] 33236- 7549 Aug, [facility] [id number] [place] [address] 45137- 2793 Aug, Mood disorder F39 [address]9 [facility] [id number] [place] [address] 45083- 1581 Aug, Lupus erythematosus L93.0 ; Diabetes type 2, controlled E11.9 and Localized edema R60.0 [facility] [id number] [place] [address] 03023- 4159 Aug, [facility] [id number] [place] [address] 25305- 9166 Jul, Anxiety F41.9 and Mood disorder F39 [facility] [address] [place] [address]- 6173 Jul, Diabetes type 2, controlled E11.9 [place] [address] 99201- 4131 Jun, Anxiety F41.9 [place] [id number] [place] [address] 81850- 0344 May, [place] [address] 43942- 7187 May, [place] [address] 21753- 0387 May, Nausea R11.0 ; Other chronic pain G89.29 and Pain in right knee M25.561 [place] [address] 83461- 2673 May, [place] [address] 34936- 8047 Apr, Tear of medial meniscus of right knee, current, unspecified tear type, subsequent encounter S83.241D and Tear of lateral meniscus of right knee, current, unspecified tear type, subsequent encounter S83.281D [place] [id number] [place] [address] 81022- 5896 Apr, Anxiety F41.9 and Mood disorder F39 [place] [id number] [place] [address] 65324- 4006 Apr, Anxiety F41.9 [place] [id number] [place] [address] 18128- 3428 Apr, [place] [id number] [place] [address] 39932- 4400 Mar, [place] [id number] [place] [address] 41383- 9176 Mar, Lupus erythematosus L93.0 and Diabetes type 2, controlled E11.9 [place] [address] 07981- 9799 Mar, Mood disorder F39 [facility] [address] [facility] [id number] [address]- 3037 Mar, Tear of lateral meniscus of right knee, current, unspecified tear type, initial encounter S83.281A and Osteoarthritis of right knee, unspecified osteoarthritis type M17.9 [facility] [address] [place] [address] 91345- 7079 Mar, [facility] [address] [place] [id number] [place] [address] 83324- 4252 Feb, Mood disorder F39 [facility] [id number] [place] [address] 69800- 5176 Feb, Rash R21 [facility] [id number] [place] [address] 19003- 8570 Feb, [facility] [id number] [place] [address] 20924- 9920 Jan, Other chronic pain G89.29 and Muscle spasm M62.838 [facility] [address] [place] [id number] [place] [address] 74844- 6012 Jan, Mood disorder F39 [facility] [address] [place] [address] 31803- 2333 Jan, Pain in right knee M25.561 ; Other chronic pain G89.29 and Muscle spasm M62.838 [facility] [address] [place] [address] [id number] [address]- 7099 Dec, [facility] [address] [place] [id number] [place] [address] 52444- 1486 Dec, [facility] [id number] [place] [address] 22281- 4465 Nov, [facility] [id number] [place] [address] 24910- 2466 Nov, Mood disorder F39 [facility] [id number] [place] [address] 68597- 2357 Nov, Diabetes type 2, controlled E11.9 ; Bronchitis J40 ; Edema, unspecified type R60.9 ; Weight gain R63.5 and Right knee pain, unspecified chronicity M25.561 [place] [id number] [place] [address] 85109- 1677 Oct, Mood disorder F39 [place] [address] 33378- 3562 Oct, Lupus erythematosus L93.0 and Bilateral edema of lower extremity R60.0 [place] [address] 86248- 1036 Oct, Mood disorder F39 and Anxiety F41.9 [place] [id number] [place] [address] 00222- 5915 September, Mood disorder F39 ; Anxiety F41.9 and Anger reaction R45.4 [place] [id number] [place] [address] 63010- 2105 September, Diabetes type 2, controlled E11.9 ; Edema, unspecified type R60.9 and Fatigue, unspecified type R53.83 [place] [id number] [place] [address] 54116- 4382 Aug, Mood disorder F39 and Generalized anxiety disorder F41.1 [place] [id number] [place] [address] 53735- 4607 Aug, Diabetes type 2, controlled E11.9 ; Sinusitis J32.9 and Mood disorder F39 [place] [id number] [place] [address] 75902- 1838 15 Aug, 2015 Lupus erythematosus L93.0 [place] [address] [id number] [place] [address] 98273- 5150 14 Aug, 2015 [place] [id number] [place] [address] 72135- 1271 Aug, [place] [address] [address]- 3795 Jul, Diabetes type 2, controlled E11.9 [facility] [address] [place] [id number] [place] [address] 31387 2546 Jul, Mood disorder F39 and Depression [address]32.9 [facility] [address] [id number] [place] [address], [place] [address] 2546 Jul, Lupus erythematosus L93.0 and Diabetes type 2, controlled E11.9 [facility] [address] [place] [id number] [place] [address] 60712- 4874 Jul, Mood disorder F39 [address] [facility] [address] [id number] [place] [address] 94166- 6600 Jul, [facility] [address] [id number] [place] [address] 72858- 4674 Jul, [facility] [address] [place] [id number] [place] [address] 43730- 1415 Jun, Mood disorder F39 [address].9 [facility] [address] [place] [id number] [place] [address] 24957- 3745 Jun, Mood disorder F39 [facility] [address] [id number] [place] [address] 06889- 4039 Jun, [facility] [address] [id number] [place] [address] 86600- 3839 15 Jun, 2015 [facility] [id number] [place] [address] 91333- 2549 08 Jun, [address] [facility] [address] [id number] [place] [address] 79484- 2272 Jun, [facility] [id number] [place] [address] 32571- 5593 May, [facility] [address] [place] [id number] [place] [address] 57684- 2736 May, [facility] [address] [address]- 2001 May, [facility] [address] [place] [id number] [place] [address] 10596- 1831 May, [facility] [id number] [place] [address] 70286- 7411 May, Anxiety F41.9 ; Dermatomyositis M33.90 and Diabetes type 2, controlled E11.9 [facility] [id number] [place] [address] May, Sinusitis J32.[address] [facility] [id number] [place] [address] 58229- 7429 May, Mood disorder F39 [facility] [id number] [place] [address] 08503- 9512 May, Adjustment disorder with mixed anxiety and depressed mood F43.23 [facility] [id number] [address] Apr, [facility] [id number] [place] [address] 74393- [address]52 Apr, [facility] [id number] [place] [address] 63904- 2657 Apr, Generalized anxiety disorder F41.1 [address] Mood [address] [facility] [id number], [place] [address] Mar, [facility] [id number] [place] [address]- [address] Mar, [facility] [id number] [place] [address] 26825- 8891 Mar, [facility] [id number], [place] [address] Mar, Mood disorder F39 [facility] [id number] [place] [address] 41995- [address] Feb, [place] [address] [address] Feb, Diabetes E11.9 and Bronchitis J40 [place] [id number] [place] [address] 47892- 7785 Feb, [place] [address] [address]- [address] Feb, [place] [id number] [place] [address] 91031- 7129 Feb, Major depression, recurrent, full remission F33.42 and KELLY ( generalized anxiety disorder) F41.1 [place] [id number] [place] [address] 24470- 7520 Feb, [place] [address] [address]- [address] Feb, Single major depressive episode, in partial or unspecified remission F32.5 [place] [id number] [place] [address] 53996- 7475 Jan, Fatigue 780.79 [place] [id number] [place] [address] 31305- 2363 Jan, [place] [id number] [place] [address] [address] 1944 Jan, Diabetes with other specified manifestations, type II or unspecified type, not stated as uncontrolled 250.80 [place] [id number] [place] [address] 57943- 1794 Jan, [place] [address] [address]81- 0344 Dec, Hot flashes 627.2 ; Memory loss 780.93 and Joint pain 719.40 [place] [id number] [place] [address] 35024- 6391 Dec, Major depression, recurrent 296.30 ; Generalized anxiety disorder 300.02 ; Adjustment disorder with depressed mood 309.0 and No condition on Laneview II V71.09 [place] [id number] [place] [address] 06376- 0705 Dec, [place] [id number] [place] [address] 65426- 7722 Nov, Cognitive and neurobehavioral dysfunction 294.9 ; Major depressive disorder, recurrent episode, moderate degree 296.32 and Anxiety state , unspecified 300.00 [place] [id number] [place] [address] 76172- 3461 Nov, [place] [id number] [place] [address] 03050- 2636 Nov, Bronchitis 490 and Diabetes with other specified manifestations, type II or unspecified type, not stated as uncontrolled 250.80 [place] [id number] [place] [address] 25167- 6287 Nov, Major depressive disorder, recurrent episode, moderate 296.32 and Anxiety disorder, unspecified 300.00 [place] [id number] [place] [address] 46310- 2728 Nov, Anxiety, generalized 300.02 ; Intermittent explosive disorder 312.34 ; No condition on Laneview II V71.09 and No condition on axis III V71.09 [place] [id number] [place] [address] 01213- 8830 Oct, Diabetes with other specified manifestations, type II or unspecified type, not stated as uncontrolled 250.80 ; Urinary tract infection, site not specified 599.0 and Bronchitis 490 [place] [id number] [place] [address] 70416- 9949 Oct, Intermittent explosive disorder 312.34 ; Bipolar 1 disorder , depressed, moderate 296.52 ; Major depression, chronic 296.20 ; No condition on Laneview II V71.09 and No condition on axis III V71.09 [place] [id number] [place] [address] 99333- 9925 Oct, Major depressive disorder, recurrent episode, moderate 296.32 ; Anxiety state 300.00 ; Cognitive decline 294.9 and No condition on Laneview II V71.09 [facility] [id number] [place] [address] 39625- 0434 Oct, [facility] [id number] [place] [address] 517510- 2752 Oct, Major depressive disorder, recurrent episode, moderate 296.32 ; Anxiety disorder, unspecified 300.00 and Persistent disorder of initiating or maintaining sleep 307.42 [facility] [id number] [place] [address] 20909- 1621 September, Diabetes with other specified manifestations, type II or unspecified type, not stated as uncontrolled 250.80 ; Memory loss 780.93 and Cognitive complaints 799.59 [facility] [id number] [place] [address] 21153- 5498 September, No condition on Laneview II V71.09 ; Major depression, recurrent 296.30 and Persistent mood [affective] disorder, unspecified 296.90 [facility] [id number] [place] [address] 21834- 4181 Aug, [facility] [id number] [place] [address] 45238- 0311 Aug, [facility] [id number] [place] [address] 93985- 3368 Aug, [facility] [id number] [place] [address] 82715- 0959 Jul, [facility] [id number] [place] [address] 98629- 4011 Jul, [facility] [id number] [place] [address] 678779- [address] Jul, [facility] [id number] [place] [address] 189371- 2864 Jul, [facility] [address] [place] [address]- 5482 Jul, [facility] [place] [facility] [address] [id number] [place] [address]- 2448 Jun, 2014 [facility] [place] [facility] [address] [facility] [id number] [place] [address]- 2856 Jun, 2014 [facility] [place] [facility] [address] [facility] [id number] [place] [address]- 5662 Jun, 2014 [facility] [place] [facility] [address] [facility] [id number] [place] [address]- 9711 Jun, 2014 [facility] [place] [facility] [address] [facility] [id number] [place] [address]- 3571 Jun, 2014 [facility] [place] [facility] [address] [id number] [place] [address]- 0222 Jun, 2014 [facility] [place] [facility] [id number] [place] [address]- 7591 Jun, 2014 [facility] [place] [facility] [address] [facility] [id number] [place] [address]- 7389 Jun, 2014 [facility] [place] [facility] [address] [id number] [place] [address]- 8062 Jun, 2014 [facility] [place] [facility] [address] [id number] [place] [address]- 1281 Jun, 2014 [facility] [place] [facility] [address] [facility] [id number] [place] [address]- 5000 Jun, 2014 [facility] [place] [facility] [address] [facility] [id number] [place] [address]- 3067 Jun, 2014 [facility] [place] [facility] [address] [facility] [id number] [place] [address]- 8267 Jun, 2014 [facility] [place] [facility] [address] [facility] [id number] [place] [address]- 8096 May, [facility] [place] [facility] [id number] [address]- 2974 May, [facility] [place] [facility] [address] [id number] [place] [address]- 9940 Apr, [facility] [place] [facility] [address] [id number] [place] 3856 Apr, [facility] [place] [facility] [address] [id number] [place] [address]- 5114 Apr, [facility] [place] [facility] [address] [id number] [place] [address]- 6322 Apr, [facility] [place] [facility] [address] [id number] [place] [address]- 4378 Apr, [facility] [place] [facility] [address] [id number] [place] [address]- 3210 Apr, [facility] [place] [facility] [address] [id number] [place] [address]- 2209 Apr, [facility] [place] [facility] [address] [id number] [place] [address]- 7732 Apr, [facility] [place] [facility] [address] [id number] [place] [address]- 7415 Apr, [facility] [place] [facility] [address] [id number] [place] [address]- 1454 Apr, [facility] [place] [facility] [address] [id number] [place] [address]- 4335 Apr, [facility] [place] [facility] [address] [id number] [place] [address]- 0419 Apr, [facility] [place] [facility] [address] [id number] [place] [address]- 0635 Apr, [facility] [place] [facility] [address] [id number] [place] [address]- 5608 Apr, [facility] [place] [facility] [address] [id number] [place] [address]- 0414 Apr, [facility] [place] [facility] [address] [id number] [place] [address]- 5951 Apr, [facility] [place] [facility] [address] [id number] [place] [address]- 9064 Apr, [facility] [place] [facility] [address] [id number] [place] [address]- 3996 Apr, [facility] [place] [facility] [address] [id number] [place] [address]- 9477 Apr, [facility] [place] [facility] [address] [id number] [place] [address]- 9440 Apr, [facility] [place] [facility] [address] [id number] [place] [address]- 8665 Mar, [facility] [place] [facility] [address] [id number] [place] [address]- 8818 Mar, [facility] [place] [facility] [address] [id number] [place] [address]- 4224 Mar, [facility] [place] [facility] [address] [id number] [place] [address]- 4750 Mar, [facility] [place] [facility] [address] [id number] [place] [address]- 9570 Mar, [facility] [place] [facility] [address] [id number] [place] [address]- 0271 Mar, [facility] [place] [facility] [address] [id number] [place] [address]- 8287 Mar, [facility] [place] [facility] [address] [id number] [place] [address]- 1146 Mar, [facility] [place] [facility] [address] [id number] [place] [address]- 1085 Mar, [facility] [place] [facility] [address] [id number] [place] [address]- 4761 Mar, [facility] [place] [facility] [address] [id number] [place] [address]- 3969 Mar, [facility] [place] [facility] [address] [id number] [place] [address]- 1073 Mar, [facility] [place] [facility] [address] [id number] [place] [address]- 7030 Mar, [facility] [place] [facility] [address] [id number] [place] [address]- 3726 Feb, [facility] [place] [facility] [address] [id number] [place] [address]- 4477 Feb, [facility] [place] [facility] [address] [id number] [place] [address]- 3326 Feb, [facility] [place] [facility] [address] [id number] [place] [address]- 6528 Feb, [facility] [place] [facility] [address] [id number] [place] [address]- 5300 Feb, [facility] [place] [facility] [address] [id number] [place] [address]- 9663 Feb, [facility] [place] [facility] [address] [id number] [place] [address]- 7915 Feb, [facility] [place] [facility] [address] [id number], [place] [address]- 2161 Feb, [facility] [place] [facility] [address] [id number], [place] [address]- 3958 Feb, [facility] [place] [facility] [address] [id number], [place] [address]- 6069 Feb, [facility] [place] [facility] [address] [id number] [place] [address]- 5951 Feb, [facility] [place] [facility] [address] [id number], [place] [address]- 2171 Feb, [facility] [place] [facility] [address] [id number] 6155 Feb, [facility] [place] [facility] [address] [id number], [place] [address]- 4549 07 Feb, 2014 [facility] [place] [facility] [address] [id number] [place] [address]- 6921 07 Feb, 2014 [facility] [place] [facility] [address] [id number] [place] [address]- 2617 Jan, [facility] [place] [facility] [address] [id number] [place] [address]- 6820 08 Jan, 2014 [facility] [place] [facility] [address] [id number] [place] [address]- 2467 08 Jan, 2014 [facility] [place] [facility] [address] [id number] [place] [address]- 0957 Jan, [facility] [place] [facility] [address] [id number] [place] [address]- 2822 Jan, [facility] [place] [facility] [address] [id number] [place] [address]- 5837 Dec, [facility] [place] [facility] [address] [id number] [place] [address]- 9033 Dec, [facility] [place] [facility] [address] [id number] [place] [address]- 6687 Dec, [facility] [place] [facility] [address] [id number] [place] [address]- 1732 Dec, [facility] [place] [facility] [address] [id number] [place] [address]- 9009 Nov, [facility] [place] [facility] [address] [id number] [place] [address]- 5770 Nov, [facility] [place] [facility] [address] [id number] [place] [address]- 2469 Nov, [facility] [place] [facility] [address] [id number] [place] [address]- 8709 Nov, [facility] [place] [facility] [address] [id number] [place] [address]- 9928 Nov, [facility] [place] [facility] [address] [id number] [place] [address]- 8824 Nov, [facility] [place] [facility] [address] [id number] [place] [address]- 5508 Nov, [facility] [place] [facility] [address] [id number] [place] [address]- 4876 Nov, [facility] [place] [facility] [address] [id number] [place] [address]- 5002 Nov, [facility] [place] [facility] [address] [id number] [place] [address]- 0279 Nov, [facility] [place] [facility] [address] [id number] [place] [address]- 9671 Oct, [facility] [place] [facility] [address] [id number] [place] [address]- 5448 Oct, [facility] [place] [facility] [address] [id number] [place] [address]- 9993 September, [facility] [place] [facility] [address] [id number] [place] [address]- 2360 September, [facility] [place] [facility] [address] [id number] [place] [address]- 4768 September, [facility] [place] [facility] [address] [id number] [place] [address]- 9509 September, [facility] [place] [facility] [address] [id number] [place] [address]- 2524 Aug, [facility] [place] [facility] [address] [id number] [place] [address]- 3471 Aug, [facility] [place] [facility] [address] [id number] [place] [address]- 4438 Aug, [facility] [place] [facility] [address] [id number] [place] [address]- 3106 Jul, [facility] [place] [facility] [address] [id number] [place] [address]- 7194 24 Jul, 2013 [facility] [place] [facility] [address] [id number] [place] [address]- 4024 14 Jul, 2013 [facility] [place] [facility] [address] [id number] [place] [address]- 0644 14 Jul, 2013 [facility] [place] [facility] [address] [id number] [place] [address]- 1113 May, [facility] [place] [facility] [address] [id number] [place] [address]- 3223 May, [facility] [place] [facility] [address] [id number] [place] [address]- 0646 May, [facility] [place] [facility] [address] [id number] [place] [address]- 2848 Mar, [facility] [place] [facility] [address] [id number] [place] [address]- 1731 Mar, [facility] [place] [facility] [address] [id number] [place] [address]- 0615 Mar, [facility] [place] [facility] [address] [id number] [place] [address]- 4440 Mar, [facility] [place] [facility] [address] [id number], [place] [address]- 9301 16 Feb, 2013 [facility] [place] [facility] [address] [id number], [place] [address]- 0662 16 Feb, 2013 [facility] [place] [facility] [address] [id number], [place] [address]- 3919 04 Feb, 2013 [facility] [place] [facility] [address] [id number] [place] [address]- 2256 16 Jan, 2013 [facility] [place] [facility] [address] [id number], [place] [address]- 1493 12 Jan, 2013 [facility] [place] [facility] [address] [id number] [place] [address]- 3090 09 Jan, 2013 [facility] [place] [facility] [address] [id number] [place] [address]- 1578 Dec, [facility] [address] [id number] [place] [address]- 3453 Dec, [facility] [address] [id number] [place] [address]- 9333 Dec, [facility] [address] [id number] [place] [address]- 6692 Dec, [facility] [address] [id number] [place] [address]- 0670 Nov, [facility] [address] [id number] [place] [address]- 8823 Oct, [facility] [address] [id number] [place] [address]- 6436 Oct, [facility] [address] [id number] [place] [address]- 6001 September, [facility] [address] [id number] [place] [address]- 5997 September, [facility] [address] [id number] [place] [address]- 7988 September, [facility] [address] [id number] [place] [address]- 8455 Aug, [facility] [address] [id number] [place] [address]- 1636 Aug, [facility] [place] [facility] [address] [id number] [place] [address]- 5366 Aug, [facility] [place] [facility] [address] [id number] [place] [address]- 8211 Aug, [facility] [place] [facility] [address] [id number] [place] 0805 Jul, [facility] [address] [id number] [place] 4294 Jul, [facility] [address] [id number] [place] [address]- 9960 21 Jul, 2012 [facility] [place] [facility] [address] [id number] [place] [address]- 3015 15 Jul, 2012 [facility] [place] [facility] [address] [id number] [place] [address]- 9779 14 Jul, 2012 [facility] [place] [facility] [address] [id number] [place] [address]- 6589 13 Jul, 2012 [facility] [place] [facility] [address] [id number] [place] [address]- 4498 13 Jul, 2012 [facility] [place] [facility] [address] [id number] [place] [address]- 4817 06 Jun, 2012 [facility] [place] [facility] [address] [id number] [place] [address]- 1504 Jun, [facility] [place] [facility] [address] [id number] [place] [address]- 8049 05 Jun, 2012 [facility] [place] [facility] [address] [id number] [place] [address]- 7772 Jun, [facility] [place] [facility] [address] [id number] [place] [address]- 2185 May, [facility] [place] [facility] [address] [id number] [place] [address]- 5829 May, [facility] [place] [facility] [address] [id number] [place] [address]- 6604 May, [facility] [place] [facility] [address] [id number] [place] [address]- 8321 May, [facility] [place] [facility] [address] [id number] [place] [address]- 8171 May, [facility] [place] [facility] [address] [id number] [place] [address]- 6332 Apr, [facility] [place] [facility] [address] [id number], [place] [address]- 4804 Apr, [facility] [place] [facility] [address] [id number] [place] [address]- 4764 Mar, [facility] [place] [facility] [address] [id number] [place] [address]- 9208 Mar, [facility] [place] [facility] [address] [facility] [id number] [place] [address]- 1430 Mar, [facility] [place] [facility] [address] [id number] [place] [address]- 2755 Mar, [facility] [place] [facility] [address] [id number] [place] [address]- 7218 Mar, [facility] [place] [facility] [address] [facility] [id number] [place] [address]- 2570 Mar, [facility] [place] [facility] [address] [id number] [place] [address]- 9464 Mar, [facility] [place] [facility] [address] [facility] [id number] [place] [address]- 1639 Mar, [facility] [place] [facility] [address] [facility] [id number] [place] [address]- 9583 Mar, [facility] [place] [facility] [address] [facility] [id number] [place] [address]- 8508 Mar, [facility] [place] [facility] [address] [facility] [id number], [place] [address]- 6385 Feb, [facility] [place] [facility] [address] [facility] [id number], [place] [address]- 6477 Feb, [facility] [place] [facility] [address] [id number] [place] [address]- 1306 Feb, [facility] [place] [facility] [address] [facility] [id number] [place] [address]- 0837 Feb, [facility] [place] [facility] [address] [facility] [id number], [place] [address]- 9029 Feb, [facility] [place] [facility] [address] [id number] [place] [address]- 2265 Feb, [facility] [place] [facility] [address] [id number] [place] [address]- 9715 Feb, [facility] [place] [facility] [address] [id number] [place] [address]- 0076 Jan, [facility] [place] [facility] [address] [id number] [place] [address] Jan, [facility] [place] [facility] [address] [id number] [place] [address] Dec, [facility] [place] [facility] [address] [id number] [place] [address] Dec, [facility] [place] [facility] [address] [id number] [place] [address] Dec, [facility] [place] [facility] [address] [id number] [place] [address] Dec, [facility] [place] [facility] [address] [id number] [place] [address] Dec, [facility] [place] [facility] [address] [id number] [place] [address] Dec, [facility] [place] [facility] [address] [id number] [place] [address] Nov, [facility] [place] [facility] [address] [id number] [place] [address] Nov, [facility] [place] [facility] [address] [id number] [place] [address] Nov, [facility] [place] [facility] [address] [id number] [place] [address] Nov, [facility] [place] [facility] [address] [id number] [place] [address] September, [facility] [place] [facility] [address] [id number] [place] [address] September, [facility] [id number] [address] September, [facility] [id number] [address] Jul, [facility] [id number] [address] Jun, [facility] [id number] [address] Jun, [facility] [id number] [address] Jun, [facility] [id number] [address] Apr, [facility] [id number] [address] Mar, [facility] [id number] [address] Mar, [facility] [id number] [address] Feb, [facility] [id number] [address] Feb, [facility] [id number] [address] Feb, [facility] [id number], [place] [address] Jul, [facility] [id number] [address] Feb, IMMUNIZATIONS No Known Immunizations SOCIAL HISTORY Never Assessed REASON FOR VISIT PLAN OF CARE Activity Details Follow Up 1 Week Reason:F/U PT VITAL SIGNS MEDICATIONS Unknown Medications RESULTS No Results PROCEDURES Procedure Date Ordered Result Body Site THERAPEUTIC EXERCISES Mar 05, 2018 INSTRUCTIONS MEDICATIONS ADMINISTERED No Known Medications MEDICAL (GENERAL) HISTORY Type Description Date Medical History type II diabetes-dx'd 12/2010 Medical History dysfunctional uterine bleeding--endometrial bx 12/2010 Medical History asthma Medical History hypertension Medical History obesity Medical History anxiety Medical History autoimmune disease Surgical History x1 Hospitalization History child Hospitalization History Asthma
--- OUTSIDE RECORDS SUMMARY | 2018-05-09 22:32 | XMS REPORT ---
Author Author SUNNY WONG [facility] Address [address] [place] [address] Care Team Providers Care Armature Rewinder Name Role Phone SUNNY WONG Unavailable PROBLEMS Type Condition ICD9-CM Code EVC99-SR Code Onset Dates Condition Status SNOMED Code Problem Dermatomyositis M33.90 Active 084932454 Problem Lumbago with sciatica, right side M54.41 Active 333309599 Problem Morbid (severe) obesity due to excess calories E66.01 Active 638899722 Problem Diabetes with other specified manifestations, type II or unspecified type, not stated as uncontrolled 250.80 Active 030123626 Problem Osteoarthritis of right knee, unspecified osteoarthritis type M17.9 Active 792841335 Problem Hypertension, unspecified type I10 Active 96597395 Problem Menopause Z78.0 Active 436165816 Problem Diabetes type 2, controlled E11.9 Active 33730757 Problem Facial droop R29.810 Active 54457839 Problem Gait disturbance R26.9 Active 51934688 Problem Other specified mental disorders due to known physiological condition F06.8 Active 90395153 Problem Frequent falls R29.6 Active 276110925 Problem Plantar warts B07.0 Active 29551886 Problem Arthritis M19.90 Active 7959809 Problem Anxiety F41.9 Active 29263698 Problem Other chronic pain G89.29 Active 59056423 Problem Controlled type 2 diabetes mellitus without complication, without long -term current use of insulin E11.9 Active 978272252 Problem Body mass index (BMI) of 45.0-49.9 in adult Z68.42 Active 901805496 Problem Allergic rhinitis due to pollen J30.1 Active 13450598 Problem Plantar wart of both feet B07.0 Active 26928170568101075 Problem Tachycardia with heart rate 121-140 beats per minute R00.0 Active 4388213 Problem Mood disorder F39 Active 90628263 Problem Lumbago with sciatica, left side M54.42 Active 133165014 Problem Enlarged thyroid gland E04.9 Active 3529321 ALLERGIES No Information ENCOUNTERS Encounter Location Date Diagnosis [place] [id number] [place] [address] 60683- 1175 Apr, [facility] [id number] [place] [address] 22231- 2328 Mar, [place] [place] [id number] [place] [address] 95876- 0116 Mar, [facility] [id number] [place] [address] 68617- 3658 Mar, [facility] [place] [id number] [place] [address] 34572- 0745 Feb, BMI 40.0-44.9, adult Z68.41 ; Diabetes type 2, controlled E11.9 ; Osteoarthritis of right knee, unspecified osteoarthritis type M17.9 ; Dermatomyositis M33.90 ; Hypertension, unspecified type I10 and Fatigue, unspecified type R53.83 [facility] [place] [id number] [place] [address] 15885- 0424 Feb, [facility] [id number] [place] [address] 39235- 8330 Feb, BMI 45.0-49.9, adult Z68.42 [facility] [id number] [place] [address] 82941- 7875 Feb, Mood disorder F39 [facility] [place] [id number] [place] [address] 12867- 2428 Feb, [facility] [id number] [place] [address] 52343- 1098 Feb, Mood disorder F39 [facility] [place] [id number] [place] [address] 07824- 1661 15 Feb, 2018 Other chronic pain G89.29 ; Anxiety F41.9 and Diabetes with other specified manifestations, type II or unspecified type, not stated as uncontrolled 250.80 [place] [address], [place] [address] 9005 Feb, BMI 40.0-44.9, adult Z68.41 [facility] [place] [id number] [place] [address] 90053- 0972 Feb, Pain in right knee M25.561 and Other chronic pain G89.29 [facility] [place] [id number] [place] [address] 85498- 5325 Feb, [facility] [id number] [place] [address] 69801- 8143 Feb, BMI 45.0-49.9, adult Z68.42 ; Gait disturbance R26.9 ; Other specified mental disorders due to known physiological condition F06.8 ; Weakness R53.1 ; Frequent falls R29.6 and Self-care deficit for bathing R46.0 [facility] [id number] [place] [address] 34255- 3363 Feb, Pain in right knee M25.561 and Other chronic pain G89.29 [facility] [id number] [place] [address] 96503- 4125 Jan, Mood disorder F39 [facility] [place] [id number] [place] [address] 75136- 2684 Jan, BMI 45.0-49.9, adult Z68.42 and 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 [facility] [place] [id number] [place] [address] 30852- 5639 Jan, [facility] [id number] [place] [address] 51035- 4186 Jan, [facility] [id number] [place] [address] 29268- 6533 Jan, [facility] [id number] [place] [address] 11931- 2798 Jan, 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 [facility] [id number] [place] [address] 44451- 3865 Jan, [facility] [address] 72143- 1224 Jan, [facility] [id number] [place] [address] 36781- 7992 Jan, [facility] [address] 56362- 0634 19 Jan, 2018 Allergic reaction to drug, initial encounter T78.40XA [facility] [place] [address] 46320- 0676 17 Jan, 2018 BMI 45.0-49.9, adult Z68.42 and Facial droop R29.810 [place] [address] 17930- 4521 14 Jan, 2018 Mood disorder F39 [place] [address] 37987- 9968 11 Jan, 2018 Dermatomyositis M33.90 and BMI 40.0-44.9, adult Z68.41 [facility] [place] [address] 04114- 9574 10 Jan, 2018 [place] [place] [id number] [place] [address] 46427- 2342 05 Jan, 2018 [facility] [id number] [place] [address] 69143- 5774 04 Jan, 2018 Irritation of left eye H57.8 and BMI 40.0-44.9, adult Z68.41 [facility] [place] [id number] [place] [address] 61400- 4544 31 Dec, 2017 Diabetes type 2, controlled E11.9 [facility] [id number] [place] [address] 44734- 3678 30 Dec, 2017 Acute right ankle pain M25.571 [facility] [address] 01948- 0156 Dec, Other chronic pain G89.29 ; Diabetes type 2, controlled E11.9 ; Gait disturbance R26.9 ; Weakness R53.1 and Muscle spasm M62.838 [facility] [id number] [place] [address] 38421- 5287 Dec, Acute non-recurrent maxillary sinusitis J01.00 [facility] [id number] [place] [address] 83188- 2189 Dec, [facility] [id number] [place] [address] 93918- 7647 Dec, [facility] [address] 22192- 6307 Dec, Acute non-recurrent maxillary sinusitis J01.00 [facility] [id number] [place] [address] 07763- 7572 Dec, Lumbago with sciatica, right side M54.41 and Lupus erythematosus L93.0 [facility] [id number] [place] [address] 06034- 7657 Dec, Mood disorder F39 [facility] [id number] [place] [address] 67489- 3587 Dec, Mood disorder F39 [facility] [id number] [place] [address] 24020- 7867 Dec, [facility] [id number] [place] [address] 60686- 4328 Dec, Acute right ankle pain M25.571 [facility] [id number] [place] [address] 81639- 0919 Nov, Lumbar radiculopathy M54.16 [facility] [id number] [place] [address] 16012- 9366 Nov, [facility] [id number] [place] [address] 02314- 3286 Nov, Mood disorder F39 [facility] [address], [place] [address]- 1788 Nov, Lumbago with sciatica, right side M54.41 and Other chronic pain G89.29 [facility] [id number] [place] [address] 05293- 3612 Nov, Acute right ankle pain M25.571 [facility] [id number] [place] [address] 05887- 2076 Nov, [facility] [id number] [place] [address] 50808- 9605 Oct, [facility] [id number] [place] [address] 82792- 2489 Oct, Plantar wart of both feet B07.0 [facility] [id number] [place] [address] 63865- 6119 Oct, [facility] [id number] [place] [address] 28986- 1776 Oct, Acute right ankle pain M25.571 and Plantar wart of both feet B07.0 [facility] [id number] [place] [address] 36744- 5460 September, Other chronic pain G89.29 [facility] [id number] [place] [address] 19077- 4892 September, Other chronic pain G89.29 [facility] [id number] [place] [address] 20992- 4137 September, Other chronic pain G89.29 [facility] [id number] [place] [address] 15929- 6141 Aug, Mood disorder F39 [facility] [id number] [place] [address] 49445- 0040 Aug, Other chronic pain G89.29 ; Controlled type 2 diabetes mellitus without complication, without long-term current use of insulin E11.9 ; Low back pain M54.5 and Tinea corporis B35.4 [facility] [place] [address] 85103- 3682 Aug, Mood disorder F39 and Anxiety F41.9 [place] [place] [address] 45448- 6824 Aug, Mood disorder F39 and Anxiety F41.9 [place] [address] 49600- 6518 Jul, [facility] [place] [address] 43743 -0191 Jul, Scabies B86 and BMI 45.0-49.9, adult Z68.42 [facility] [place] [address] 27493- 4216 Jul, [facility] [place] [address] 15420- 4465 Jul, Mood disorder F39 and Anxiety F41.9 [place] [address] 55931- 0782 Jul, [facility] [place] [address] 31801 -9667 27 Jun, 2017 Bronchitis J40 ; Dark urine R82.99 and BMI 45.0-49.9, adult Z68.42 [facility] [place] [address] 88081- 1401 14 Jun, 2017 Acute pain of right shoulder M25.511 and Acute pain of right knee M25.561 [facility] [place] [address] 09620- 3574 May, BMI 40.0-44.9, adult Z68.41 ; Controlled type 2 diabetes mellitus without complication, without long-term current use of insulin E11.9 ; Muscle cramping R25.2 ; Hot flashes R23.2 ; Mood disorder F39 ; Anxiety F41.9 and Morbid (severe) obesity due to excess calories E66.01 [facility] [id number] [place] [address] 80138- 9972 May, BMI 40.0-44.9, adult Z68.41 ; Controlled type 2 diabetes mellitus without complication, without long-term current use of insulin E11.9 ; Muscle cramping R25.2 and Hot flashes R23.[address] 63399- 5358 May, Tachycardia with heart rate 121-140 beats per minute R00.0 ; Morbid (severe) obesity due to excess calories E66.01 ; Diabetes type 2, controlled E11.9 and Enlarged thyroid gland E04.[address] 77623- 5231 25 May, 2017 Encounter for well woman [...] Dysuria R30.0 and Screening breast examination Z12.31 [place] [id number] [place] [address] 54700- 3086 Apr, Mood disorder F39 ; Other chronic pain G89.29 and Anxiety F41.9 [place] [id number] [place] [address] 24291- 7152 Apr, Lumbago with sciatica, left side M54.42 and Other chronic pain G89.[address] 28072- 4606 Apr, Lupus erythematosus L93.[address] 09054- 5040 Mar, Plantar wart of both feet B07.0 [facility] [id number] [place] [address] 62534- 9189 Mar, Lupus erythematosus L93.0 and Sinus drainage J34.89 [facility] [id number] [place] [address] 02285- 2546 Mar, Mood disorder F39 ; Other chronic pain G89.29 and Anxiety F41.9 [facility] [id number] [place] [address] 64331- 3976 Mar, Mood disorder F39 ; Arthritis M19.90 and Plantar warts B07.0 [facility] [id number] [place] [address] 23211- 0412 Feb, Lupus erythematosus L93.0 [facility] [id number] [place] [address] 65612- 7591 Feb, Other chronic pain G89.29 [facility] [address] 54331- 0288 Feb, Mood disorder F39 and Anxiety F41.9 [facility] [id number] [place] [address] 51949- 5430 Jan, [facility] [id number] [place] [address] 85184- 4693 Jan, Mood disorder F39 [facility] [id number] [place] [address] 10760- 5653 Dec, Nail, ingrown L60.0 [facility] [id number] [place] [address] 06850- 2668 Dec, Nail, ingrown L60.0 [facility] [address] 16908- 2707 Nov, Mood disorder F39 and Anxiety F41.9 [facility] [id number] [place] [address] 45024- 2629 Nov, Sinus drainage J34.89 ; Hot flashes R23.2 ; Anxiety F41.9 and Diabetes type 2, controlled E11.9 [facility] [id number] [place] [address] 63356- 4082 Nov, Nail, ingrown L60.0 [facility] [id number] [place] [address] 21712- 3297 Oct, Anxiety F41.9 and Mood disorder F39 [facility] [address] 65921- 1770 Oct, Nail, ingrown L60.0 and Anxiety F41.9 [facility] [id number] [place] [address] 22031- 6492 Oct, Lupus erythematosus L93.0 [facility] [id number] [place] [address] 97022- 4089 September, [facility] [address] 27414- 9946 September, [facility] [id number] [place] [address] 01328- 5454 September, Lupus erythematosus L93.0 [facility] [id number] [place] [address] 75799- 7620 Aug, [facility] [id number] [place] [address] 65234- 6160 Aug, Mood disorder F39 and Anxiety F41.9 [facility] [id number] [place] [address] 76054- 3327 Aug, Lupus erythematosus L93.0 ; Diabetes type 2, controlled E11.9 and Localized edema R60.0 [facility] [id number] [place] [address] 25976- 9237 Aug, [facility] [id number] [place] [address] 96798- 6957 Jul, Anxiety F41.9 and Mood disorder F39 [facility] [address] [place] [address] [place] [address]- 8877 Jul, Diabetes type 2, controlled E11.9 [facility] [place] [id number] [place] [address] 77032- 6943 Jun, Anxiety F41.9 [facility] [place] [id number] [place] [address] 46271- 9104 May, [place] [place] [address] 61953- 5315 May, [place] [id number] [place] [address] 78421- 5669 May, Nausea R11.0 ; Other chronic pain G89.29 and Pain in right knee M25.561 [facility] [id number] [place] [address] 44378- 1110 May, [place] [address] 07202- 7833 Apr, Tear of medial meniscus of right knee, current, unspecified tear type, subsequent encounter S83.241D and Tear of lateral meniscus of right knee, current, unspecified tear type, subsequent encounter S83.281D [facility] [place] [id number] [place] [address] 71373- 8997 Apr, Anxiety F41.9 and Mood disorder F39 [facility] [id number] [place] [address] 44233- 7123 Apr, Anxiety F41.9 [place] [place] [id number] [place] [address] 57175- 8697 Apr, [place] [place] [id number] [place] [address] 86350- 9588 Mar, [place] [place] [id number] [place] [address] 31352- 6717 Mar, Lupus erythematosus L93.0 and Diabetes type 2, controlled E11.9 [place] [place] [id number] [place] [address] 93259- 1615 Mar, Mood disorder F39 [facility] [id number] [place] [address] 60704- 2616 Mar, Tear of lateral meniscus of right knee, current, unspecified tear type, initial encounter S83.281A and Osteoarthritis of right knee, unspecified osteoarthritis type M17.9 [facility] [id number] [place] [address] 92761- 6925 Mar, [facility] [id number] [place] [address] 72373- 4031 Feb, Mood disorder F39 [facility] [id number] [place] [address] 38810- 7196 Feb, Rash R21 [facility] [id number] [place] [address] 34182- 7466 Feb, [facility] [id number] [place] [address] 05710- 2921 Jan, Other chronic pain G89.29 and Muscle spasm M62.838 [facility] [id number] [place] [address] 45369- 0270 Jan, Mood disorder F39 [facility] [id number] [place] [address] 32116- 4065 Jan, Pain in right knee M25.561 ; Other chronic pain G89.29 and Muscle spasm M62.838 [facility] [id number] [place] [address] 78051- 7246 Dec, [facility] [id number] [place] [address] 44716- 5276 Dec, [facility] [id number] [place] [address] 30465- 1646 Nov, [facility] [id number] [place] [address] 30823- 6536 Nov, Mood disorder F39 [facility] [id number] [place] [address] 08526- 0065 Nov, Diabetes type 2, controlled E11.9 ; Bronchitis J40 ; Edema, unspecified type R60.9 ; Weight gain R63.5 and Right knee pain, unspecified chronicity M25.561 [place] [id number] [place] [address] 40174- 3768 Oct, Mood disorder F39 [place] [address] 55332- 5738 Oct, Lupus erythematosus L93.0 and Bilateral edema of lower extremity R60.0 [place] [address] 033103- 5034 Oct, Mood disorder F39 and Anxiety F41.9 [place] [id number] [place] [address] 14135- 7217 September, Mood disorder F39 ; Anxiety F41.9 and Anger reaction R45.4 [place] [id number] [place] [address] 79370- 8730 September, Diabetes type 2, controlled E11.9 ; Edema, unspecified type R60.9 and Fatigue, unspecified type R53.83 [place] [id number] [place] [address] 37698- 9458 Aug, Mood disorder F39 and Generalized anxiety disorder F41.1 [place] [id number] [place] [address] 70520- 5624 Aug, Diabetes type 2, controlled E11.9 ; Sinusitis J32.9 and Mood disorder F39 [place] [id number] [place] [address] 69248- 4197 15 Aug, 2015 Lupus erythematosus L93.0 [place] [id number] [place] [address] 57146- 1837 14 Aug, 2015 [place] [address] 14274- 8754 Aug, [facility] [address], [place] [address]- 8833 Jul, Diabetes type 2, controlled E11.9 [facility] [id number] [place] [address] 70387- 4316 Jul, Mood disorder F39 and Depression F32.9 [facility] [id number] [place] [address] 65880 2546 Jul, Lupus erythematosus L93.0 and Diabetes type 2, controlled E11.9 [facility] [id number] [place] [address] 77392- 7921 Jul, Mood disorder F39 and Anxiety F41.9 [facility] [id number] [place] [address] 03373- 3600 Jul, [facility] [id number] [place] [address] 95298- 9133 Jul, [facility] [id number] [place] [address] 29493- 4182 Jun, Mood disorder F39 and Anxiety F41.9 [facility] [id number] [place] [address] 92812- 7548 Jun, Mood disorder F39 [facility] [address] [address]- 4615 Jun, [facility] [id number] [place] [address] 01121- 1919 15 Jun, 2015 [facility] [address] [address]- 1866 Jun, Mood disorder F39 [facility] [id number] [place] [address] 18492- 1403 Jun, [facility] [address] [address]- 5202 May, [facility] [id number] [place] [address] 04779- 9409 May, [facility] [id number] [place] [address] 12246- 6671 May, [facility] [id number] [place] [address] 30217- 0187 May, [facility] [id number] [place] [address] 70797- 0815 May, Anxiety F41.9 ; Dermatomyositis M33.90 and Diabetes type 2, controlled E11.9 [facility] [id number] [place] [address] 61905 -4057 May, Sinusitis J32.9 and Cough R05 [facility] [id number] [place] [address] 90060- 4631 May, Mood disorder F39 [facility] [id number] [place] [address] 07341- 9810 May, Adjustment disorder with mixed anxiety and depressed mood F43.23 [facility] [id number] [place] [address] 56565- 5090 Apr, [facility] [id number] [place] [address] 83984- 3704 Apr, [facility] [id number] [place] [address] 20185- 5080 Apr, Generalized anxiety disorder F41.1 and Mood disorder F39 [facility] [id number] [place] [address] 28819- 6534 Mar, [facility] [id number] [place] [address] 75209- 0204 Mar, [facility] [id number] [place] [address] 13012- 0145 Mar, [facility] [id number] [place] [address] 56965- 5404 Mar, Mood disorder F39 [facility] [id number] [place] [address] 49165- 3757 Feb, [facility] [address] [address]- [address] Feb, Diabetes E11.9 and Bronchitis J40 [facility] [id number] [place] [address] 22159- 5016 Feb, [facility] [address] [address]- 3952 Feb, [facility] [id number] [place] [address] 44900- 9314 Feb, Major depression, recurrent, full remission F33.42 and KELLY ( generalized anxiety disorder) F41.1 [facility] [id number] [place] [address] 67426- 4717 Feb, [facility] [address] 45947- 0104 Feb, Single major depressive episode, in partial or unspecified remission F32.5 [facility] [id number] [place] [address] 01796- 7818 Jan, Fatigue 780.79 [facility] [id number] [place] [address] 66192- 2368 Jan, [facility] [id number] [place] [address] 09960- 2169 Jan, Diabetes with other specified manifestations, type II or unspecified type, not stated as uncontrolled 250.80 [place] [id number] [place] [address] 30067- 3558 Jan, [place] [address] 71313- 3483 Dec, Hot flashes 627.2 ; Memory loss 780.93 and Joint pain 719.40 [place] [address] 75885- 3436 Dec, Major depression, recurrent 296.30 ; Generalized anxiety disorder 300.02 ; Adjustment disorder with depressed mood 309.0 and No condition on [place] II V71.09 [place] [id number] [place] [address] 68798- 1790 Dec, [facility] [id number] [place] [address] 39950- 7966 Nov, Cognitive and neurobehavioral dysfunction 294.9 ; Major depressive disorder, recurrent episode, moderate degree 296.32 and Anxiety state , unspecified 300.00 [place] [id number] [place] [address] 45712- 9447 Nov, [place] [id number] [place] [address] 55514- 6472 Nov, Bronchitis 490 and Diabetes with other specified manifestations, type II or unspecified type, not stated as uncontrolled [address] [place] [id number] [place] [address] 45283- 5527 Nov, Major depressive disorder, recurrent episode, moderate 296.32 and Anxiety disorder, unspecified 300.00 [place] [id number] [place] [address] 52446- 1481 Nov, Anxiety, generalized 300.02 ; Intermittent explosive disorder 312.34 ; No condition on Warsaw II V71.09 and No condition on axis III V71.09 [place] [id number] [place] [address] 82531- 9884 Oct, Diabetes with other specified manifestations, type II or unspecified type, not stated as uncontrolled 250.80 ; Urinary tract infection, site not specified 599.0 and Bronchitis 490 [place] [id number] [place] [address] 20620- 3319 Oct, Intermittent explosive disorder 312.34 ; Bipolar 1 disorder , depressed, moderate 296.52 ; Major depression, chronic 296.20 ; No condition on Warsaw II V71.09 and No condition on axis III V71.09 [place] [id number] [place] [address] 85573- 0631 Oct, Major depressive disorder, recurrent episode, moderate 296.32 ; Anxiety state 300.00 ; Cognitive decline 294.9 and No condition on Warsaw II V71.09 [facility] [id number] [place] [address] 099665- 8398 Oct, [facility] [id number] 3416 Oct, Major depressive disorder, recurrent episode, moderate 296.32 ; Anxiety disorder, unspecified 300.00 and Persistent disorder of initiating or maintaining sleep 307.42 [facility] [id number] [place] [address] 933210- 9553 September, Diabetes with other specified manifestations, type II or unspecified type, not stated as uncontrolled 250.80 ; Memory loss 780.93 and Cognitive complaints 799.59 [place] [id number] [place] [address] 39518- 3289 September, No condition on [place] II V71.09 ; Major depression, recurrent 296.30 and Persistent mood [affective] disorder, unspecified 296.90 [facility] [id number] [place] [address] 04815- 7057 Aug, [facility] [id number] [place] [address] 24337- 8914 Aug, [facility] [id number] [address]- 4787 Aug, [facility] [id number] [place] [address] [id number]- 3605 Jul, [facility] [id number] 9636 Jul, [facility] [id number] [place] [address] 240066- 2708 Jul, [facility] [id number] 1334 Jul, [facility] [id number] [place] [address]- 9831 Jul, [facility] [place] [facility] [address] [facility] [id number] [place] [address]- 5782 Jun, 2014 [facility] [place] [facility] [address] [facility] [id number] [place] [address]- 0205 Jun, 2014 [facility] [place] [facility] [address] [facility] [id number] [place] [address]- 3072 Jun, 2014 [facility] [place] [facility] [address] [facility] [id number] [place] [address]- 3070 Jun, 2014 [facility] [place] [facility] [address] [facility] [id number] [place] [address]- 1270 Jun, 2014 [facility] [place] [facility] [address] [facility] [id number] [place] [address]- 6374 Jun, 2014 [facility] [place] [facility] [address] [facility] [id number] [place] [address]- 6553 Jun, 2014 [facility] [place] [facility] [address] [facility] [id number] [place] [address]- 6583 Jun, 2014 [facility] [place] [facility] [id number] [place] [address]- 4598 Jun, 2014 [facility] [place] [facility] [id number] [address]- 8891 Jun, 2014 [facility] [place] [facility] [address] [facility] [id number] [address]- 2520 Jun, 2014 [facility] [place] [facility] [address] [facility] [id number] [place] [address]- 9709 Jun, 2014 [facility] [place] [facility] [address] [facility] [id number] [place] [address]- 8734 Jun, 2014 [facility] [place] [facility] [address] [facility] [id number] [address]- 2293 May, [facility] [place] [facility] [address] [facility] [id number], [place] [address]- 2453 May, [facility] [place] [facility] [address] [id number] [place] [address]- 8769 Apr, [facility] [place] [facility] [address] [id number] [place] 0406 Apr, [facility] [place] [facility] [address] [id number] [place] [address]- 9898 Apr, [facility] [place] [facility] [address] [id number] [place] [address]- 8191 Apr, [facility] [place] [facility] [address] [id number] [place] [address]- 5206 Apr, [facility] [place] [facility] [address] [id number] [place] [address]- 5331 Apr, [facility] [place] [facility] [address] [id number] [place] [address]- 5373 Apr, [facility] [place] [facility] [address] [id number] [place] [address]- 6609 Apr, [facility] [place] [facility] [address] [id number] [place] [address]- 6328 Apr, [facility] [place] [facility] [address] [id number] [place] [address]- 5394 Apr, [facility] [place] [facility] [address] [id number] [place] [address]- 5738 Apr, [facility] [place] [facility] [address] [id number] [place] [address]- 2438 Apr, [facility] [place] [facility] [address] [id number] [place] [address]- 9973 Apr, [facility] [place] [facility] [address] [id number] [place] [address]- 2483 Apr, [facility] [place] [facility] [address] [id number] [place] [address]- 6484 Apr, [facility] [place] [facility] [address] [id number] [place] [address]- 4678 Apr, [facility] [place] [facility] [address] [id number] [place] [address]- 1628 Apr, [facility] [place] [facility] [address] [id number] [place] [address]- 9795 Apr, [facility] [place] [facility] [address] [id number] [place] [address]- 6000 Apr, [facility] [place] [facility] [address] [id number] [place] [address]- 1014 Apr, [facility] [place] [facility] [address] [id number] [place] [address]- 0231 Mar, [facility] [place] [facility] [address] [id number] [place] [address]- 7288 Mar, [facility] [place] [facility] [address] [id number] [place] [address]- 7274 Mar, [facility] [place] [facility] [address] [id number] [place] [address]- 8774 Mar, [facility] [place] [facility] [address] [id number] [place] [address]- 7620 Mar, [facility] [place] [facility] [address] [id number] [place] [address]- 1877 Mar, [facility] [place] [facility] [address] [id number] [place] [address]- 0504 Mar, [facility] [place] [facility] [address] [id number] [place] [address]- 0007 Mar, [facility] [place] [facility] [address] [id number] [place] [address]- 2517 Mar, [facility] [place] [facility] [address] [id number] [place] [address]- 7269 Mar, [facility] [place] [facility] [address] [id number] [place] [address]- 2327 Mar, [facility] [place] [facility] [address] [id number] [place] [address]- 5861 Mar, [facility] [place] [facility] [address] [id number] [place] [address]- 5017 Mar, [facility] [place] [facility] [address] [id number] [place] [address]- 0542 Feb, [facility] [place] [facility] [address] [id number] [place] [address]- 1371 Feb, [facility] [place] [facility] [address] [id number] [place] [address]- 0769 Feb, [facility] [place] [facility] [address] [id number] [place] [address]- 4160 Feb, [facility] [place] [facility] [address] [id number] [place] [address]- 9593 Feb, [facility] [place] [facility] [address] [id number] [place] [address]- 8106 Feb, [facility] [place] [facility] [address] [id number] [place] [address]- 8419 Feb, [facility] [place] [facility] [address] [id number] [address]- 5037 Feb, [facility] [place] [facility] [address] [id number], [place] [address]- 6901 Feb, [facility] [place] [facility] [address] [id number], [place] [address]- 9947 Feb, [facility] [place] [facility] [address] [id number] [place] [address]- 4295 Feb, [facility] [place] [facility] [address] [id number], [place] [address]- 3392 Feb, [facility] [place] [facility] [address] [id number] [place] [address]- 8770 Feb, [facility] [place] [facility] [address] [id number] [place] [address]- 1804 07 Feb, 2013 [facility] [place] [facility] [address] [id number] [place] [address]- 2609 07 Feb, 2014 [facility] [place] [facility] [address] [id number] [place] [address]- 6605 10 Jan, 2013 [facility] [place] [facility] [address] [id number] [place] [address]- 8676 08 Jan, 2013 [facility] [place] [facility] [address] [id number] [place] [address]- 1629 08 Jan, 2013 [facility] [place] [facility] [address] [id number] [place] [address]- 2432 08 Jan, 2014 [facility] [place] [facility] [address] [id number] [place] [address]- 0553 Jan, [facility] [place] [facility] [address] [id number] [place] [address]- 8971 Dec, [facility] [place] [facility] [address] [id number] [place] [address]- 6843 Dec, [facility] [place] [facility] [address] [id number] [place] [address]- 1454 Dec, [facility] [place] [facility] [address] [id number] [place] [address]- 0120 Dec, [facility] [place] [facility] [address] [id number] [place] [address]- 1770 Nov, [facility] [place] [facility] [address] [id number] [place] [address]- 7718 Nov, [facility] [place] [facility] [address] [id number] [place] [address]- 8762 Nov, [facility] [place] [facility] [address] [id number] [place] [address]- 4076 Nov, [facility] [place] [facility] [address] [id number] [place] 6902 Nov, [facility] [place] [facility] [address] [id number] [place] [address]- 1847 Nov, [facility] [place] [facility] [address] [id number] [place] [address]- 4304 Nov, [facility] [place] [facility] [address] [id number] [place] [address]- 2004 Nov, [facility] [place] [facility] [address] [id number] [place] [address]- 5537 Nov, [facility] [place] [facility] [address] [id number] [place] [address]- 4830 Nov, [facility] [place] [facility] [address] [id number] [place] [address]- 6707 Oct, [facility] [place] [facility] [address] [id number] [place] [address]- 8059 Oct, [facility] [place] [facility] [address] [id number] [place] [address]- 5648 September, [facility] [place] [facility] [address] [id number] [place] [address]- 9879 September, [facility] [place] [facility] [address] [id number] [place] [address]- 1185 September, [facility] [place] [facility] [address] [id number] [place] [address]- 3502 September, [facility] [place] [facility] [address] [id number] [place] [address]- 9094 Aug, [facility] [place] [facility] [address] [id number] [place] [address]- 8778 Aug, [facility] [place] [facility] [address] [id number] [place] [address]- 9308 Aug, [facility] [place] [facility] [address] [id number] [place] [address]- 6997 Jul, [facility] [place] [facility] [address] [id number] [place] [address]- 8208 Jul, [facility] [place] [facility] [address] [id number] [place] [address]- 7904 Jul, [facility] [place] [facility] [address] [id number] [place] [address]- 6822 Jul, [facility] [place] [facility] [address] [id number] [place] [address]- 8566 May, [facility] [place] [facility] [address] [id number] [place] [address]- 7435 May, [facility] [place] [facility] [address] [id number] [place] [address]- 8369 May, [facility] [place] [facility] [address] [id number] [place] [address]- 7301 Mar, [facility] [place] [facility] [address] [id number] [place] [address]- 6022 15 Mar, 2013 [facility] [place] [facility] [address] [id number] [place] [address]- 9975 Mar, [facility] [place] [facility] [address] [id number] [place] [address]- 1347 Mar, [facility] [place] [facility] [address] [id number] [place] [address]- 7117 16 Feb, 2013 [facility] [place] [facility] [address] [id number], [place] [address]- 4643 16 Feb, 2013 [facility] [place] [facility] [address] [id number] [address]- 8282 04 Feb, 2013 [facility] [place] [facility] [address] [id number] [place] [address]- 8480 16 Jan, 2013 [facility] [place] [facility] [address] [id number] [place] [address]- 2198 12 Jan, 2013 [facility] [place] [facility] [address] [id number] [place] [address]- 7216 09 Jan, 2013 [facility] [place] [facility] [address] [id number] [place] [address]- 5902 Dec, [facility] [address] [id number] [place] [address]- 2857 Dec, [facility] [address] [id number] [place] [address]- 0194 Dec, [facility] [address] [id number] [place] [address]- 7074 Dec, [facility] [address] [id number] [place] [address]- 3147 Nov, [facility] [address] [id number] [place] [address]- 0242 Oct, [facility] [address] [id number] [place] [address]- 0051 Oct, [facility] [address] [id number] [place] [address]- 5919 September, [facility] [address] [id number] [place] [address]- 7557 September, [facility] [address] [id number] [place] [address]- 6374 September, [facility] [address] [id number] [place] [address]- 8627 Aug, [facility] [address] [id number] [place] [address]- 3174 Aug, [facility] [address] [id number] [place] [address]- 2544 Aug, [facility] [address] [id number] [place] [address]- 9410 Aug, [facility] [address] [id number] [place] [address]- 6896 Jul, [facility] [address] [id number] [place] [address]- 0131 Jul, [facility] [address] [id number] [place] [address]- 4373 21 Jul, 2012 [facility] [address] [id number] [place] [address]- 5911 15 Jul, 2012 [facility] [address] [id number] [place] [address]- 3584 14 Jul, 2012 [facility] [place] [facility] [address] [id number] [place] [address]- 0233 13 Jul, 2012 [facility] [address] [id number] [place] [address]- 0517 13 Jul, 2012 [facility] [address] [id number] [place] [address]- 1865 06 Jun, 2012 [facility] [address] [id number] [place] [address]- 5315 06 Jun, 2012 [facility] [address] [id number] [place] [address]- 8352 05 Jun, 2012 [facility] [address] [id number] [place] [address]- 9336 Jun, [facility] [address] [id number] [place] [address]- 3322 May, [facility] [address] [id number] [place] [address]- 3157 May, [facility] [place] [facility] [address] [id number] [address]- 6139 May, [facility] [place] [facility] [address] [id number] [place] [address]- 8052 May, [facility] [place] [facility] [address] [id number] [place] [address]- 8890 May, [facility] [place] [facility] [address] [id number] [place] [address]- 5417 Apr, [facility] [place] [facility] [address] [id number] [place] [address]- 3238 Apr, [facility] [place] [facility] [address] [id number] [place] [address]- 3732 Mar, [facility] [place] [facility] [address] [id number] [place] [address]- 9680 Mar, [facility] [place] [facility] [address] [id number] [place] [address]- 7832 Mar, [facility] [place] [facility] [address] [id number] [place] [address]- 3760 Mar, [facility] [place] [facility] [address] [id number] [place] [address]- 4090 Mar, [facility] [place] [facility] [address] [id number] [place] [address]- 0735 Mar, [facility] [place] [facility] [address] [id number] [place] [address]- 5179 Mar, [facility] [place] [facility] [address] [id number] [place] [address]- 2821 Mar, [facility] [place] [facility] [address] [id number] [place] [address]- 6570 Mar, [facility] [place] [facility] [address] [facility] [id number] [place] [address]- 1483 Mar, [facility] [place] [facility] [address] [id number] [place] [address]- 0956 Feb, [facility] [place] [facility] [address] [id number], [place] [address]- 9515 Feb, [facility] [place] [facility] [address] [id number] [place] [address]- 1809 Feb, [facility] [place] [facility] [address] [facility] [id number] [place] [address]- 2839 Feb, [facility] [place] [facility] [address] [facility] [id number], [place] [address]- 6231 Feb, [facility] [place] [facility] [address] [id number] [place] [address]- 1818 Feb, [facility] [place] [facility] [address] [id number] [place] [address]- 6501 Feb, [facility] [place] [facility] [address] [id number] [place] [address]- 2281 Jan, [facility] [place] [facility] [address] [id number] [place] [address]- 0222 Jan, [facility] [place] [facility] [address] [id number] [place] [address]- 3851 Dec, [facility] [place] [facility] [address] [id number] [place] [address]- 9202 Dec, [facility] [place] [facility] [address] [id number] [place] [address] Dec, [facility] [place] [facility] [address] [id number] [place] [address] Dec, [facility] [place] [facility] [address] [id number] [place] [address] Dec, [facility] [place] [facility] [address] [id number] [place] [address] Dec, [facility] [place] [facility] [address] [id number] [place] [address] Nov, [facility] [place] [facility] [address] [id number] [place] [address] Nov, [facility] [place] [facility] [address] [id number] [place] [address] Nov, [facility] [place] [facility] [address] [id number] [place] [address] Nov, [facility] [place] [facility] [address] [id number] [place] [address] September, [facility] [place] [facility] [address] [id number] [place] [address] September, [facility] [id number] [address] September, [facility] [id number] [address] Jul, [facility] [id number] [address] Jun, [facility] [id number] [address] Jun, [facility] [id number] [address] Jun, [facility] [id number] [place] [address] Apr, [facility] [id number] [address] Mar, [facility] [id number] [address] Mar, [facility] [id number] [place] [address] Feb, [facility] [id number] [address] Feb, [facility] [id number] [place] [address] Feb, [facility] [id number] [place] [address] Jul, [facility] [id number], [place] [address] Feb, IMMUNIZATIONS No Known Immunizations SOCIAL HISTORY Never Assessed REASON FOR VISIT f/u PLAN OF CARE Activity Details Follow Up 1 Week Reason: F/U VITAL SIGNS MEDICATIONS Unknown Medications RESULTS No Results PROCEDURES Procedure Date Ordered Result Body Site Psychotherapy, patient &/family, 45 minutes, established patient Mar 20, 2018 INSTRUCTIONS MEDICATIONS ADMINISTERED No Known Medications MEDICAL (GENERAL) HISTORY Type Description Date Medical History type II diabetes-dx'd 12/2010 Medical History dysfunctional uterine bleeding--endometrial bx 12/2010 Medical History asthma Medical History hypertension Medical History obesity Medical History anxiety Medical History autoimmune disease Surgical History x1 Hospitalization History child Hospitalization History Asthma
--- OUTSIDE RECORDS SUMMARY | 2018-05-09 22:33 | XMS REPORT ---
Author Author JASON ROSS [facility] [address] Address [address] [place] [address] Care Team Providers Care Research Archaeologist Name Role Phone CODY JASON Unavailable PROBLEMS Type Condition ICD9-CM Code ZJD01-WH Code Onset Dates Condition Status SNOMED Code Problem Dermatomyositis M33.90 Active 092469729 Problem Lumbago with sciatica, right side M54.41 Active 915572108 Problem Morbid (severe) obesity due to excess calories E66.01 Active 493477609 Problem Diabetes with other specified manifestations, type II or unspecified type, not stated as uncontrolled 250.80 Active 057870333 Problem Osteoarthritis of right knee, unspecified osteoarthritis type M17.9 Active 546537612 Problem Hypertension, unspecified type I10 Active 74095657 Problem Menopause Z78.0 Active 387760297 Problem Diabetes type 2, controlled E11.9 Active 84472933 Problem Facial droop R29.810 Active 99245542 Problem Gait disturbance R26.9 Active 35515594 Problem Other specified mental disorders due to known physiological condition F06.8 Active 85902728 Problem Frequent falls R29.6 Active 736292634 Problem Plantar warts B07.0 Active 55160302 Problem Arthritis M19.90 Active 9922874 Problem Anxiety F41.9 Active 51224383 Problem Other chronic pain G89.29 Active 69433692 Problem Controlled type 2 diabetes mellitus without complication, without long -term current use of insulin E11.9 Active 428690863 Problem Body mass index (BMI) of 45.0-49.9 in adult Z68.42 Active 044405372 Problem Allergic rhinitis due to pollen J30.1 Active 51027819 Problem Plantar wart of both feet B07.0 Active [id number] Problem Tachycardia with heart rate 121-140 beats per minute R00.0 Active 9793959 Problem Mood disorder F39 Active 19295753 Problem Lumbago with sciatica, left side M54.42 Active 984386483 Problem Enlarged thyroid gland E04.9 Active 5629523 ALLERGIES No Information ENCOUNTERS Encounter Location Date Diagnosis [facility] [id number] [place] [address] 83477- 3744 Apr, [place] [id number] [place] [address] 58716- 0375 Mar, [place] [address] 75399- 5787 Mar, [place] [address] 17634- 5941 Mar, [place] [address] 47051- 7060 Feb, BMI 40.0-44.9, adult Z68.41 ; Diabetes type 2, controlled E11.9 ; Osteoarthritis of right knee, unspecified osteoarthritis type M17.9 ; Dermatomyositis M33.90 ; Hypertension, unspecified type I10 and Fatigue, unspecified type R53.83 [place] [id number] [place] [address] 09992- 7980 Feb, [place] [id number] [place] [address] 33789- 0064 Feb, BMI 45.0-49.9, adult Z68.42 [place] [id number] [place] [address] 63404- 0690 Feb, Mood disorder F39 [place] [id number] [place] [address] 55473- 6581 Feb, [place] [id number] [place] [address] 30966- 2551 Feb, Mood disorder F39 [place] [id number] [place] [address] 96518- 5190 Feb, Other chronic pain G89.29 ; Anxiety F41.9 and Diabetes with other specified manifestations, type II or unspecified type, not stated as uncontrolled 250.80 [place] [id number] [place] [address] 77443- 2839 Feb, BMI 40.0-44.9, adult Z68.41 [place] [id number] [place] [address] 09028- 4575 Feb, Pain in right knee M25.561 and Other chronic pain G89.29 [place] [id number] [place] [address] 14594- 3782 Feb, [place] [id number] [place] [address] 17264- 3744 Feb, BMI 45.0-49.9, adult Z68.42 ; Gait disturbance R26.9 ; Other specified mental disorders due to known physiological condition F06.8 ; Weakness R53.1 ; Frequent falls R29.6 and Self-care deficit for bathing R46.0 [place] [id number] [place] [address] 18586- 0910 Feb, Pain in right knee M25.561 and Other chronic pain G89.29 [place] [id number] [place] [address] 36056- 7226 Jan, Mood disorder F39 [place] [id number] [place] [address] 27472- 2268 Jan, BMI 45.0-49.9, adult Z68.42 and 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 [place] [id number] [place] [address] 53729- 8531 Jan, [place] [id number] [place] [address] 47901- 9206 Jan, [place] [id number] [place] [address] 74953- 0112 Jan, [place] [id number] [place] [address] 48065- 5440 Jan, 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 [place] [address] [id number] [place] [address] 58594- 1029 Jan, [facility] [id number] [place] [address] 17019- 9533 Jan, [facility] [id number] [place] [address] 31766- 7906 21 Jan, 2018 [facility] [address] 31141- 3875 19 Jan, 2018 Allergic reaction to drug, initial encounter T78.40XA [place] [id number] [place] [address] 33840- 6537 17 Jan, 2018 BMI 45.0-49.9, adult Z68.42 and Facial droop R29.810 [place] [id number] [place] [address] 46149- 8835 14 Jan, 2018 Mood disorder F39 [place] [address] 95764- 5084 11 Jan, 2018 Dermatomyositis M33.90 and BMI 40.0-44.9, adult Z68.41 [place] [id number] [place] [address] 12511- 0343 10 Jan, 2018 [place] [id number] [place] [address] 56319- 2963 05 Jan, 2018 [place] [id number] [place] [address] 62082- 8736 04 Jan, 2018 Irritation of left eye H57.8 and BMI 40.0-44.9, adult Z68.41 [facility] [id number] [place] [address] 85959- 5882 Dec, Diabetes type 2, controlled E11.9 [facility] [id number] [place] [address] 86680- 6319 Dec, Acute right ankle pain M25.571 [place] [id number] [place] [address] 42744- 3567 Dec, Other chronic pain G89.29 ; Diabetes type 2, controlled E11.9 ; Gait disturbance R26.9 ; Weakness R53.1 and Muscle spasm M62.838 [facility] [id number] [place] [address] 01810- 3609 Dec, Acute non-recurrent maxillary sinusitis J01.00 [facility] [id number] [place] [address] 88517- 0954 Dec, [facility] [address] 92124- 4139 Dec, [facility] [address] 00307- 0850 Dec, Acute non-recurrent maxillary sinusitis J01.00 [facility] [id number] [place] [address] 71473- 0696 Dec, Lumbago with sciatica, right side M54.41 and Lupus erythematosus L93.0 [facility] [id number] [place] [address] 13543- 6768 Dec, Mood disorder F39 [facility] [id number] [place] [address] 14155- 6195 Dec, Mood disorder F39 [facility] [id number] [place] [address] 09485- 4158 Dec, [facility] [id number] [place] [address] 67457- 6256 Dec, Acute right ankle pain M25.571 [facility] [id number] [place] [address] 28777- 5607 Nov, Lumbar radiculopathy M54.16 [facility] [id number] [place] [address] 21444- 4719 Nov, [facility] [id number] [place] [address] 99083- 4823 Nov, Mood disorder F39 [facility] [id number] [place] [address] 04109- 2636 Nov, Lumbago with sciatica, right side M54.41 and Other chronic pain G89.29 [facility] [id number] [place] [address] 92282- 3069 Nov, Acute right ankle pain M25.571 [facility] [id number] [place] [address] 93874- 0435 Nov, [facility] [id number] [place] [address] 26647- 2331 Oct, [place] [id number] [place] [address] 88707- 8054 Oct, Plantar wart of both feet B07.0 [place] [id number] [place] [address] 26739- 8566 Oct, [facility] [id number] [place] [address] 33011- 5248 Oct, Acute right ankle pain M25.571 and Plantar wart of both feet B07.0 [place] [id number] [place] [address] 89385- 7016 September, Other chronic pain G89.29 [facility] [id number] [place] [address] 16285- 7167 September, Other chronic pain G89.29 [facility] [id number] [place] [address] 97072- 1805 September, Other chronic pain G89.29 [place] [id number] [place] [address] 59353- 4147 Aug, Mood disorder F39 [facility] [id number] [place] [address] 02534- 1682 Aug, Other chronic pain G89.29 ; Controlled type 2 diabetes mellitus without complication, without long-term current use of insulin E11.9 ; Low back pain M54.5 and Tinea corporis B35.4 [place] [id number] [place] [address] 97636- 2421 Aug, Mood disorder F39 and Anxiety F41.9 [place] [id number] [place] [address] 02587- 9833 Aug, Mood disorder F39 and Anxiety F41.9 [place] [address] 70518- 6248 Jul, [facility] [place] [address] 96758 -4965 Jul, Scabies B86 and BMI 45.0-49.9, adult Z68.42 [place] [address] 34134- 8377 Jul, [place] [address] 91486- 4103 Jul, Mood disorder F39 and Anxiety F41.9 [place] [id number] [place] [address] 75907- 4828 Jul, [facility] [place] [id number] [place] [address] 25907 -6643 27 Jun, 2017 Bronchitis J40 ; Dark urine R82.99 and BMI 45.0-49.9, adult Z68.42 [place] [id number] [place] [address] 10810- 9880 14 Jun, 2017 Acute pain of right shoulder M25.511 and Acute pain of right knee M25.561 [place] [address] 99796- 3031 May, BMI 40.0-44.9, adult Z68.41 ; Controlled type 2 diabetes mellitus without complication, without long-term current use of insulin E11.9 ; Muscle cramping R25.2 ; Hot flashes R23.2 ; Mood disorder F39 ; Anxiety F41.9 and Morbid (severe) obesity due to excess calories E66.01 [place] [id number] [place] [address] 51069- 6230 May, BMI 40.0-44.9, adult Z68.41 ; Controlled type 2 diabetes mellitus without complication, without long-term current use of insulin E11.9 ; Muscle cramping R25.2 and Hot flashes R23.[address] 57521- 5518 May, Tachycardia with heart rate 121-140 beats per minute R00.0 ; Morbid (severe) obesity due to excess calories E66.01 ; Diabetes type 2, controlled E11.9 and Enlarged thyroid gland E04.[address] 32961- 8237 25 May, 2017 Encounter for well woman [...] Dysuria R30.0 and Screening breast examination Z12.31 [place] [id number] [place] [address] 34732- 1600 Apr, Mood disorder F39 ; Other chronic pain G89.29 and Anxiety F41.9 [place] [id number] [place] [address] 67966- 8173 Apr, Lumbago with sciatica, left side M54.42 and Other chronic pain G89.29 [place] [id number] [place] [address] 13891- 1135 Apr, Lupus erythematosus L93.0 [place] [id number] [place] [address] 63989- 3521 Mar, Plantar wart of both feet B07.0 [facility] [id number] [place] [address] 59360- 7098 Mar, Lupus erythematosus L93.0 and Sinus drainage J34.89 [facility] [id number] [place] [address]- 2546 Mar, Mood disorder F39 ; Other chronic pain G89.29 and Anxiety F41.9 [facility] [address] 83115- 0555 Mar, Mood disorder F39 ; Arthritis M19.90 and Plantar warts B07.0 [facility] [id number] [place] [address] 074994- 7232 Feb, Lupus erythematosus L93.0 [facility] [id number] [place] [address] 24372- 0594 Feb, Other chronic pain G89.29 [facility] [address] 75999- 5884 Feb, Mood disorder F39 and Anxiety F41.9 [facility] [id number] [place] [address] 30969- 3265 Jan, [facility] [id number] [place] [address] 61510- 9561 Jan, Mood disorder F39 [facility] [id number] [place] [address] 35248- 7516 Dec, Nail, ingrown L60.0 [facility] [id number] [place] [address] 81433- 7725 Dec, Nail, ingrown L60.0 [facility] [address] 11452- 1731 Nov, Mood disorder F39 and Anxiety F41.9 [facility] [id number] [place] [address] 42211- 0691 Nov, Sinus drainage J34.89 ; Hot flashes R23.2 ; Anxiety F41.9 and Diabetes type 2, controlled E11.9 [facility] [id number] [place] [address] 01631- 0815 Nov, Nail, ingrown L60.0 [facility] [id number] [place] [address] 17223- 0151 Oct, Anxiety F41.9 and Mood disorder F39 [facility] [id number] [place] [address] 23026- 7439 Oct, Nail, ingrown L60.0 and Anxiety F41.9 [facility] [id number] [place] [address] 37921- 1318 Oct, Lupus erythematosus L93.0 [facility] [id number] [place] [address] 81939- 8651 September, [facility] [address] 49608- 2573 September, [facility] [id number] [place] [address] 74765- 3955 September, Lupus erythematosus L93.0 [facility] [id number] [place] [address] 96369- 1069 Aug, [facility] [id number] [place] [address] 49266- 3764 Aug, Mood disorder F39 and Anxiety F41.9 [facility] [id number] [place] [address] 82490- 0789 Aug, Lupus erythematosus L93.0 ; Diabetes type 2, controlled E11.9 and Localized edema R60.0 [facility] [id number] [place] [address] 16662- 3271 Aug, [facility] [id number] [place] [address] 39434- 0351 Jul, Anxiety F41.9 and Mood disorder F39 [facility] [address] [place] [address]- 1218 Jul, Diabetes type 2, controlled E11.9 [place] [address] 61966- 8031 Jun, Anxiety F41.9 [place] [id number] [place] [address] 74290- 5222 May, [place] [address] 34767- 5457 May, [place] [address] 22398- 8570 May, Nausea R11.0 ; Other chronic pain G89.29 and Pain in right knee M25.561 [place] [address] 43307- 1601 May, [place] [address] 29992- 3218 Apr, Tear of medial meniscus of right knee, current, unspecified tear type, subsequent encounter S83.241D and Tear of lateral meniscus of right knee, current, unspecified tear type, subsequent encounter S83.281D [place] [id number] [place] [address] 92919- 0693 Apr, Anxiety F41.9 and Mood disorder F39 [place] [id number] [place] [address] 29934- 8105 Apr, Anxiety F41.9 [place] [id number] [place] [address] 08818- 6556 Apr, [place] [id number] [place] [address] 13723- 6819 Mar, [place] [id number] [place] [address] 48211- 8490 Mar, Lupus erythematosus L93.0 and Diabetes type 2, controlled E11.9 [place] [address] 04411- 4828 Mar, Mood disorder F39 [facility] [address] [facility] [id number] [address]- 8582 Mar, Tear of lateral meniscus of right knee, current, unspecified tear type, initial encounter S83.281A and Osteoarthritis of right knee, unspecified osteoarthritis type M17.9 [facility] [id number] [place] [address] 35068- 6318 Mar, [facility] [id number] [place] [address] 29031- 8099 Feb, Mood disorder F39 [facility] [id number] [place] [address] 27607- 5916 Feb, Rash R21 [facility] [id number] [place] [address] 15155- 9356 Feb, [facility] [id number] [place] [address] 21908- 4304 Jan, Other chronic pain G89.29 and Muscle spasm M62.838 [facility] [id number] [place] [address] 54161- 1168 Jan, Mood disorder F39 [facility] [id number] [place] [address] 45361- 0379 Jan, Pain in right knee M25.561 ; Other chronic pain G89.29 and Muscle spasm M62.838 [facility] [address] [address] [id number] [address]- 9227 Dec, [facility] [id number] [place] [address] 42505- 1636 Dec, [facility] [id number] [place] [address] 71039- 0634 Nov, [facility] [id number] [place] [address] 76659- 8086 Nov, Mood disorder F39 [facility] [id number] [place] [address] 98809- 5564 Nov, Diabetes type 2, controlled E11.9 ; Bronchitis J40 ; Edema, unspecified type R60.9 ; Weight gain R63.5 and Right knee pain, unspecified chronicity M25.561 [place] [id number] [place] [address] 11138- 7702 Oct, Mood disorder F39 [place] [address] 64414- 0098 Oct, Lupus erythematosus L93.0 and Bilateral edema of lower extremity R60.0 [place] [address] 25140- 3457 Oct, Mood disorder F39 and Anxiety F41.9 [place] [id number] [place] [address] 60883- 1734 September, Mood disorder F39 ; Anxiety F41.9 and Anger reaction R45.4 [place] [id number] [place] [address] 80976- 4385 September, Diabetes type 2, controlled E11.9 ; Edema, unspecified type R60.9 and Fatigue, unspecified type R53.83 [place] [id number] [place] [address] 82491- 1098 Aug, Mood disorder F39 and Generalized anxiety disorder F41.1 [place] [id number] [place] [address] 26958- 3942 Aug, Diabetes type 2, controlled E11.9 ; Sinusitis J32.9 and Mood disorder F39 [place] [id number] [place] [address] 06629- 6304 15 Aug, 2015 Lupus erythematosus L93.0 [place] [id number] [place] [address] 31031- 0852 14 Aug, 2015 [place] [id number] [place] [address] 67344- 6396 Aug, [place] [address] [address]- 0034 Jul, Diabetes type 2, controlled E11.9 [facility] [id number] [place] [address] 74676 2546 Jul, Mood disorder F39 and Depression F32.9 [facility] [id number] [place] [address], [place] [address] 2546 Jul, Lupus erythematosus L93.0 and Diabetes type 2, controlled E11.9 [facility] [id number] [place] [address] 15696- 9121 Jul, Mood disorder F39 and Anxiety F41.9 [facility] [id number] [place] [address] 88868- 7523 Jul, [facility] [id number] [place] [address] 66234- 8237 Jul, [facility] [id number] [place] [address] 30220- 1744 Jun, Mood disorder F39 and Anxiety F41.9 [facility] [id number] [place] [address] 48581- 0365 Jun, Mood disorder F39 [facility] [id number] [place] [address] 27234- 5569 Jun, [facility] [id number] [place] [address] 54553- 7678 15 Jun, 2015 [facility] [id number] [place] [address] 67794- 2548 08 Jun, 2015 Mood disorder F39 [facility] [address] [id number] [place] [address] 47859- 9927 Jun, [facility] [id number] [place] [address] 95440- 9109 May, [facility] [id number] [place] [address] 32980- 6502 May, [facility] [address] [address]- 4394 May, [facility] [id number] [place] [address] 55052- 3264 May, [facility] [id number] [place] [address] 91045- 2722 May, Anxiety F41.9 ; Dermatomyositis M33.90 and Diabetes type 2, controlled E11.9 [facility] [id number] [place] [address] 31490 -6564 May, Sinusitis J32.9 and Cough R05 [facility] [id number] [place] [address] 43782- 5431 May, Mood disorder F39 [facility] [id number] [place] [address] 08786- 1634 May, Adjustment disorder with mixed anxiety and depressed mood F43.23 [facility] [id number] [address] Apr, [facility] [id number] [place] [address] 03281- 7908 Apr, [facility] [id number] [place] [address] 37955- 4377 Apr, Generalized anxiety disorder F41.1 and Mood disorder F39 [facility] [id number], [place] [address] Mar, [facility] [id number] [place] [address] 14659- 3530 Mar, [facility] [id number] [place] [address] 05728- 0347 Mar, [facility] [id number] [address] Mar, Mood disorder F39 [facility] [id number] [place] [address] 71259- 5744 Feb, [place] [address] [address]- [address]26 Feb, Diabetes E11.9 and Bronchitis J40 [place] [id number] [place] [address] 89975- 2680 Feb, [place] [address] [address]- 4312 Feb, [place] [id number] [place] [address] 97878- 8846 Feb, Major depression, recurrent, full remission F33.42 and KELLY ( generalized anxiety disorder) F41.1 [place] [id number] [place] [address] 64564- 2289 Feb, [place] [address] 89651- 5459 Feb, Single major depressive episode, in partial or unspecified remission F32.5 [place] [id number] [place] [address] 65167- 2221 Jan, Fatigue 780.79 [place] [address] [place] [id number] [place] [address] 56113- 6605 Jan, [place] [id number] [place] [address] 88970- 9523 Jan, Diabetes with other specified manifestations, type II or unspecified type, not stated as uncontrolled 250.80 [place] [id number] [place] [address] 59780- 0993 Jan, [place] [address] [address]26- 1393 Dec, Hot flashes 627.2 ; Memory loss 780.93 and Joint pain 719.40 [place] [id number] [place] [address] 55912- 8456 Dec, Major depression, recurrent 296.30 ; Generalized anxiety disorder 300.02 ; Adjustment disorder with depressed mood 309.0 and No condition on Moberly II V71.09 [place] [id number] [place] [address] 74883- 4030 Dec, [place] [id number] [place] [address] 17953- 1606 Nov, Cognitive and neurobehavioral dysfunction 294.9 ; Major depressive disorder, recurrent episode, moderate degree 296.32 and Anxiety state , unspecified 300.00 [place] [id number] [place] [address] 58514- 5259 Nov, [place] [id number] [place] [address] 46994- 7230 Nov, Bronchitis 490 and Diabetes with other specified manifestations, type II or unspecified type, not stated as uncontrolled 250.80 [place] [id number] [place] [address] 23535- 7853 Nov, Major depressive disorder, recurrent episode, moderate 296.32 and Anxiety disorder, unspecified 300.00 [place] [id number] [place] [address] 87527- 5593 Nov, Anxiety, generalized 300.02 ; Intermittent explosive disorder 312.34 ; No condition on Moberly II V71.09 and No condition on axis III V71.09 [place] [id number] [place] [address] 63174- 8464 Oct, Diabetes with other specified manifestations, type II or unspecified type, not stated as uncontrolled 250.80 ; Urinary tract infection, site not specified 599.0 and Bronchitis [address] [id number] [place] [address] 37910- 9360 Oct, Intermittent explosive disorder 312.34 ; Bipolar 1 disorder , depressed, moderate 296.52 ; Major depression, chronic 296.20 ; No condition on Moberly II V71.09 and No condition on axis III V71.09 [place] [id number] [place] [address] 08414- 1080 Oct, Major depressive disorder, recurrent episode, moderate 296.32 ; Anxiety state 300.00 ; Cognitive decline 294.9 and No condition on Moberly II V71.09 [facility] [id number] [place] [address] 76040- 4596 Oct, [facility] [id number] [place] [address] 260693- 3458 Oct, Major depressive disorder, recurrent episode, moderate 296.32 ; Anxiety disorder, unspecified 300.00 and Persistent disorder of initiating or maintaining sleep 307.42 [facility] [id number] [place] [address] 61102- 9301 September, Diabetes with other specified manifestations, type II or unspecified type, not stated as uncontrolled 250.80 ; Memory loss 780.93 and Cognitive complaints 799.59 [facility] [id number] [place] [address] 40914- 4881 September, No condition on Moberly II V71.09 ; Major depression, recurrent 296.30 and Persistent mood [affective] disorder, unspecified 296.90 [facility] [id number] [place] [address] 82949- 7303 Aug, [facility] [id number] [place] [address] 44700- 6409 Aug, [facility] [id number] [place] [address] 50582- 7162 Aug, [facility] [id number] [place] [address] 59510- 1679 Jul, [facility] [id number] [place] [address] 98273- 1416 Jul, [facility] [id number] [place] [address] 789080- 1750 Jul, [facility] [id number] [place] [address] 498221- 7447 Jul, [facility] [address] [place] [address]- 4763 Jul, [facility] [place] [facility] [address] [id number] [place] [address]- 5625 Jun, 2014 [facility] [place] [facility] [address] [facility] [id number] [place] [address]- 3894 Jun, 2014 [facility] [place] [facility] [address] [facility] [id number] [place] [address]- 6507 Jun, 2014 [facility] [place] [facility] [address] [facility] [id number] [place] [address]- 6787 Jun, 2014 [facility] [place] [facility] [address] [facility] [id number] [place] [address]- 5413 Jun, 2014 [facility] [place] [facility] [address] [id number] [place] [address]- 1472 Jun, 2014 [facility] [place] [facility] [id number] [place] [address]- 2036 Jun, 2014 [facility] [place] [facility] [address] [facility] [id number] [place] [address]- 1327 Jun, 2014 [facility] [place] [facility] [address] [id number] [place] [address]- 4723 Jun, 2014 [facility] [place] [facility] [address] [id number] [place] [address]- 0625 Jun, 2014 [facility] [place] [facility] [address] [facility] [id number] [place] [address]- 8730 Jun, 2014 [facility] [place] [facility] [address] [facility] [id number] [place] [address]- 7420 Jun, 2014 [facility] [place] [facility] [address] [facility] [id number] [place] [address]- 5750 Jun, 2014 [facility] [place] [facility] [address] [facility] [id number] [place] [address]- 0638 May, [facility] [place] [facility] [id number] [address]- 1655 May, [facility] [place] [facility] [address] [id number] [place] [address]- 6669 Apr, [facility] [place] [facility] [address] [id number] [place] 4556 Apr, [facility] [place] [facility] [address] [id number] [place] [address]- 9456 Apr, [facility] [place] [facility] [address] [id number] [place] [address]- 9915 Apr, [facility] [place] [facility] [address] [id number] [place] [address]- 2245 Apr, [facility] [place] [facility] [address] [id number] [place] [address]- 1714 Apr, [facility] [place] [facility] [address] [id number] [place] [address]- 7805 Apr, [facility] [place] [facility] [address] [id number] [place] [address]- 1679 Apr, [facility] [place] [facility] [address] [id number] [place] [address]- 8129 Apr, [facility] [place] [facility] [address] [id number] [place] [address]- 9949 Apr, [facility] [place] [facility] [address] [id number] [place] [address]- 7573 Apr, [facility] [place] [facility] [address] [id number] [place] [address]- 8323 Apr, [facility] [place] [facility] [address] [id number] [place] [address]- 7224 Apr, [facility] [place] [facility] [address] [id number] [place] [address]- 6317 Apr, [facility] [place] [facility] [address] [id number] [place] [address]- 5446 Apr, [facility] [place] [facility] [address] [id number] [place] [address]- 4765 Apr, [facility] [place] [facility] [address] [id number] [place] [address]- 6118 Apr, [facility] [place] [facility] [address] [id number] [place] [address]- 1827 Apr, [facility] [place] [facility] [address] [id number] [place] [address]- 8712 Apr, [facility] [place] [facility] [address] [id number] [place] [address]- 7469 Apr, [facility] [place] [facility] [address] [id number] [place] [address]- 4748 Mar, [facility] [place] [facility] [address] [id number] [place] [address]- 8789 Mar, [facility] [place] [facility] [address] [id number] [place] [address]- 5427 Mar, [facility] [place] [facility] [address] [id number] [place] [address]- 3997 Mar, [facility] [place] [facility] [address] [id number] [place] [address]- 4154 Mar, [facility] [place] [facility] [address] [id number] [place] [address]- 3058 Mar, [facility] [place] [facility] [address] [id number] [place] [address]- 2362 Mar, [facility] [place] [facility] [address] [id number] [place] [address]- 4799 Mar, [facility] [place] [facility] [address] [id number] [place] [address]- 7050 Mar, [facility] [place] [facility] [address] [id number] [place] [address]- 9689 Mar, [facility] [place] [facility] [address] [id number] [place] [address]- 3648 Mar, [facility] [place] [facility] [address] [id number] [place] [address]- 3749 Mar, [facility] [place] [facility] [address] [id number] [place] [address]- 3987 Mar, [facility] [place] [facility] [address] [id number] [place] [address]- 9970 Feb, [facility] [place] [facility] [address] [id number] [place] [address]- 5032 Feb, [facility] [place] [facility] [address] [id number] [place] [address]- 2195 Feb, [facility] [place] [facility] [address] [id number] [place] [address]- 8945 Feb, [facility] [place] [facility] [address] [id number] [place] [address]- 4584 Feb, [facility] [place] [facility] [address] [id number] [place] [address]- 4186 Feb, [facility] [place] [facility] [address] [id number] [place] [address]- 9634 Feb, [facility] [place] [facility] [address] [id number], [place] [address]- 1968 Feb, [facility] [place] [facility] [address] [id number], [place] [address]- 3347 Feb, [facility] [place] [facility] [address] [id number], [place] [address]- 7629 Feb, [facility] [place] [facility] [address] [id number] [place] [address]- 8938 Feb, [facility] [place] [facility] [address] [id number], [place] [address]- 9273 Feb, [facility] [place] [facility] [address] [id number] 6698 Feb, [facility] [place] [facility] [address] [id number], [place] [address]- 7597 07 Feb, 2014 [facility] [place] [facility] [address] [id number] [place] [address]- 1267 07 Feb, 2014 [facility] [place] [facility] [address] [id number] [place] [address]- 7329 Jan, [facility] [place] [facility] [address] [id number] [place] [address]- 2820 08 Jan, 2014 [facility] [place] [facility] [address] [id number] [place] [address]- 0668 08 Jan, 2014 [facility] [place] [facility] [address] [id number] [place] [address]- 5675 Jan, [facility] [place] [facility] [address] [id number] [place] [address]- 4786 Jan, [facility] [place] [facility] [address] [id number] [place] [address]- 2021 Dec, [facility] [place] [facility] [address] [id number] [place] [address]- 0738 Dec, [facility] [place] [facility] [address] [id number] [place] [address]- 8259 Dec, [facility] [place] [facility] [address] [id number] [place] [address]- 9270 Dec, [facility] [place] [facility] [address] [id number] [place] [address]- 4829 Nov, [facility] [place] [facility] [address] [id number] [place] [address]- 7516 Nov, [facility] [place] [facility] [address] [id number] [place] [address]- 8052 Nov, [facility] [place] [facility] [address] [id number] [place] [address]- 9674 Nov, [facility] [place] [facility] [address] [id number] [place] [address]- 2931 Nov, [facility] [place] [facility] [address] [id number] [place] [address]- 1400 Nov, [facility] [place] [facility] [address] [id number] [place] [address]- 2482 Nov, [facility] [place] [facility] [address] [id number] [place] [address]- 8556 Nov, [facility] [place] [facility] [address] [id number] [place] [address]- 2626 Nov, [facility] [place] [facility] [address] [id number] [place] [address]- 2131 Nov, [facility] [place] [facility] [address] [id number] [place] [address]- 5018 Oct, [facility] [place] [facility] [address] [id number] [place] [address]- 5142 Oct, [facility] [place] [facility] [address] [id number] [place] [address]- 6334 September, [facility] [place] [facility] [address] [id number] [place] [address]- 0099 September, [facility] [place] [facility] [address] [id number] [place] [address]- 7560 September, [facility] [place] [facility] [address] [id number] [place] [address]- 5850 September, [facility] [place] [facility] [address] [id number] [place] [address]- 3921 Aug, [facility] [place] [facility] [address] [id number] [place] [address]- 6216 Aug, [facility] [place] [facility] [address] [id number] [place] [address]- 2061 Aug, [facility] [place] [facility] [address] [id number] [place] [address]- 0176 Jul, [facility] [place] [facility] [address] [id number] [place] [address]- 8760 24 Jul, 2013 [facility] [place] [facility] [address] [id number] [place] [address]- 3506 14 Jul, 2013 [facility] [place] [facility] [address] [id number] [place] [address]- 6582 14 Jul, 2013 [facility] [place] [facility] [address] [id number] [place] [address]- 7788 May, [facility] [place] [facility] [address] [id number] [place] [address]- 3134 May, [facility] [place] [facility] [address] [id number] [place] [address]- 9711 May, [facility] [place] [facility] [address] [id number] [place] [address]- 2274 Mar, [facility] [place] [facility] [address] [id number] [place] [address]- 3390 Mar, [facility] [place] [facility] [address] [id number] [place] [address]- 2966 Mar, [facility] [place] [facility] [address] [id number] [place] [address]- 7002 Mar, [facility] [place] [facility] [address] [id number], [place] [address]- 4254 16 Feb, 2013 [facility] [place] [facility] [address] [id number], [place] [address]- 7572 16 Feb, 2013 [facility] [place] [facility] [address] [id number], [place] [address]- 5824 04 Feb, 2013 [facility] [place] [facility] [address] [id number] [place] [address]- 7270 16 Jan, 2013 [facility] [place] [facility] [address] [id number], [place] [address]- 4395 12 Jan, 2013 [facility] [place] [facility] [address] [id number] [place] [address]- 7978 09 Jan, 2013 [facility] [place] [facility] [address] [id number] [place] [address]- 6005 Dec, [facility] [address] [id number] [place] [address]- 2958 Dec, [facility] [address] [id number] [place] [address]- 1976 Dec, [facility] [address] [id number] [place] [address]- 8389 Dec, [facility] [address] [id number] [place] [address]- 8265 Nov, [facility] [address] [id number] [place] [address]- 7512 Oct, [facility] [address] [id number] [place] [address]- 5439 Oct, [facility] [address] [id number] [place] [address]- 3625 September, [facility] [address] [id number] [place] [address]- 5049 September, [facility] [address] [id number] [place] [address]- 3503 September, [facility] [address] [id number] [place] [address]- 8118 Aug, [facility] [address] [id number] [place] [address]- 3363 Aug, [facility] [place] [facility] [address] [id number] [place] [address]- 5789 Aug, [facility] [place] [facility] [address] [id number] [place] [address]- 8051 Aug, [facility] [place] [facility] [address] [id number] [place] 3304 Jul, [facility] [address] [id number] [place] 8583 Jul, [facility] [address] [id number] [place] [address]- 6454 21 Jul, 2012 [facility] [place] [facility] [address] [id number] [place] [address]- 5954 15 Jul, 2012 [facility] [place] [facility] [address] [id number] [place] [address]- 4834 14 Jul, 2012 [facility] [place] [facility] [address] [id number] [place] [address]- 4950 13 Jul, 2012 [facility] [place] [facility] [address] [id number] [place] [address]- 1950 13 Jul, 2012 [facility] [place] [facility] [address] [id number] [place] [address]- 1205 06 Jun, 2012 [facility] [place] [facility] [address] [id number] [place] [address]- 2361 Jun, [facility] [place] [facility] [address] [id number] [place] [address]- 7922 05 Jun, 2012 [facility] [place] [facility] [address] [id number] [place] [address]- 4255 Jun, [facility] [place] [facility] [address] [id number] [place] [address]- 0531 May, [facility] [place] [facility] [address] [id number] [place] [address]- 7098 May, [facility] [place] [facility] [address] [id number] [place] [address]- 6567 May, [facility] [place] [facility] [address] [id number] [place] [address]- 2780 May, [facility] [place] [facility] [address] [id number] [place] [address]- 3366 May, [facility] [place] [facility] [address] [id number] [place] [address]- 9099 Apr, [facility] [place] [facility] [address] [id number], [place] [address]- 4206 Apr, [facility] [place] [facility] [address] [id number] [place] [address]- 1544 Mar, [facility] [place] [facility] [address] [id number] [place] [address]- 3474 Mar, [facility] [place] [facility] [address] [facility] [id number] [place] [address]- 4227 Mar, [facility] [place] [facility] [address] [id number] [place] [address]- 6788 Mar, [facility] [place] [facility] [address] [id number] [place] [address]- 8148 Mar, [facility] [place] [facility] [address] [facility] [id number] [place] [address]- 4486 Mar, [facility] [place] [facility] [address] [id number] [place] [address]- 6163 Mar, [facility] [place] [facility] [address] [facility] [id number] [place] [address]- 6799 Mar, [facility] [place] [facility] [address] [facility] [id number] [place] [address]- 5786 Mar, [facility] [place] [facility] [address] [facility] [id number] [place] [address]- 6696 Mar, [facility] [place] [facility] [address] [facility] [id number], [place] [address]- 4855 Feb, [facility] [place] [facility] [address] [facility] [id number], [place] [address]- 9693 Feb, [facility] [place] [facility] [address] [id number] [place] [address]- 3404 Feb, [facility] [place] [facility] [address] [facility] [id number] [place] [address]- 9557 Feb, [facility] [place] [facility] [address] [facility] [id number], [place] [address]- 5568 Feb, [facility] [place] [facility] [address] [id number] [place] [address]- 7392 Feb, [facility] [place] [facility] [address] [id number] [place] [address]- 5772 Feb, [facility] [place] [facility] [address] [id number] [place] [address] Jan, [facility] [place] [facility] [address] [id number] [place] [address] Jan, [facility] [place] [facility] [address] [id number] [place] [address] Dec, [facility] [place] [facility] [address] [id number] [place] [address] Dec, [facility] [place] [facility] [address] [id number] [place] [address] Dec, [facility] [place] [facility] [address] [id number] [place] [address] Dec, [facility] [place] [facility] [address] [id number] [place] [address] Dec, [facility] [place] [facility] [address] [id number] [place] [address] Dec, [facility] [place] [facility] [address] [id number] [place] [address] Nov, [facility] [place] [facility] [address] [id number] [place] [address] Nov, [facility] [place] [facility] [address] [id number] [place] [address] Nov, [facility] [place] [facility] [address] [id number] [place] [address] Nov, [facility] [place] [facility] [address] [id number] [place] [address] September, [facility] [place] [facility] [address] [id number] [place] [address] September, [facility] [id number] [address] September, [facility] [id number] [address] Jul, [facility] [id number], [place] [address] Jun, [facility] [address] [id number] [address] Jun, [facility] [id number] [address] Jun, [facility] [id number] [place] [address] Apr, [facility] [id number], [place] [address] Mar, [facility] [id number], [place] [address] Mar, [facility] [id number], [place] [address] Feb, [facility] [id number] [place] [address] Feb, [facility] [id number], [place] [address] Feb, [facility] [id number] [place] [address] Jul, [facility] [id number] [place] [address] Feb, IMMUNIZATIONS No Known Immunizations SOCIAL HISTORY Never Assessed REASON FOR VISIT PT Evaluation PLAN OF CARE Activity Details Follow Up 1 Week Reason:F/U PT VITAL SIGNS MEDICATIONS Unknown Medications RESULTS No Results PROCEDURES Procedure Date Ordered Result Body Site PT EVAL LOW COMPLEX 20 MIN Feb 28, 2018 THERAPEUTIC EXERCISES Feb 28, 2018 INSTRUCTIONS MEDICATIONS ADMINISTERED No Known Medications MEDICAL (GENERAL) HISTORY Type Description Date Medical History type II diabetes-dx'd 12/2010 Medical History dysfunctional uterine bleeding--endometrial bx 12/2010 Medical History asthma Medical History hypertension Medical History obesity Medical History anxiety Medical History autoimmune disease Surgical History x1 Hospitalization History child Hospitalization History Asthma
--- OUTSIDE RECORDS SUMMARY | 2018-05-09 22:34 | XMS REPORT ---
Author Author MACY TAMAYO [facility] Address [address] [place] [address] Care Team Providers Care Superintendent Mechanical Name Role Phone MACY TAMAYO Unavailable PROBLEMS Type Condition ICD9-CM Code PDF16-LM Code Onset Dates Condition Status SNOMED Code Problem Enlarged thyroid gland E04.9 Active 7219947 Problem Morbid (severe) obesity due to excess calories E66.01 Active 418919813 Problem Dermatomyositis M33.90 Active 922643914 Problem Diabetes with other specified manifestations, type II or unspecified type, not stated as uncontrolled 250.80 Active 841983499 Problem Menopause Z78.0 Active 217158963 Problem Other specified mental disorders due to known physiological condition F06.8 Active 88358262 Problem Diabetes type 2, controlled E11.9 Active 28862078 Problem Mood disorder F39 Active 10291462 Problem Gait disturbance R26.9 Active 12082462 Problem Lumbago with sciatica, right side M54.41 Active 967696017 Problem Frequent falls R29.6 Active 521058111 Problem Facial droop R29.810 Active 49175682 Problem Other chronic pain G89.29 Active 67584506 Problem Plantar warts B07.0 Active 32396730 Problem Osteoarthritis of right knee, unspecified osteoarthritis type M17.9 Active 703094982 Problem Anxiety F41.9 Active 12784544 Problem Lumbago with sciatica, left side M54.42 Active 694056453 Problem Controlled type 2 diabetes mellitus without complication, without long -term current use of insulin E11.9 Active 056036312 Problem Arthritis M19.90 Active 7273744 Problem Body mass index (BMI) of 45.0-49.9 in adult Z68.42 Active 177747222 Problem Allergic rhinitis due to pollen J30.1 Active 09304925 Problem Plantar wart of both feet B07.0 Active [id number] Problem Tachycardia with heart rate 121-140 beats per minute R00.0 Active 0231167 ALLERGIES No Information ENCOUNTERS Encounter Location Date Diagnosis [facility] [address], [place] [address] Apr, [facility] [id number] [place] [address] 51252- 3302 Mar, [facility] [id number] [place] [address] 66665- 8432 Mar, [facility] [id number] [place] [address] 605608- 2980 Mar, [facility] [id number] [place] [address] 15318- 4112 Feb, [facility] [id number] [place] [address] 69340- 8200 Feb, [facility] [id number] [place] [address] 24621- 4984 Feb, BMI 45.0-49.9, adult Z68.42 [facility] [id number] [place] [address] 95547- 9069 Feb, Mood disorder F39 [facility] [id number] [place] [address] 59795- 9042 Feb, [facility] [id number] [place] [address] 24345- 5905 Feb, Mood disorder F39 [facility] [id number] [place] [address] 93309- 3299 Feb, Other chronic pain G89.29 ; Anxiety F41.9 and Diabetes with other specified manifestations, type II or unspecified type, not stated as uncontrolled 250.80 [facility] [id number] [place] [address] 32765- 5623 Feb, BMI 40.0-44.9, adult Z68.41 [facility] [id number] [place] [address] 95008- 9284 Feb, [facility] [id number] [place] [address] 55756- 6861 Feb, [facility] [address] 08755- 1635 Feb, BMI 45.0-49.9, adult Z68.42 ; Gait disturbance R26.9 ; Other specified mental disorders due to known physiological condition F06.8 ; Weakness R53.1 ; Frequent falls R29.6 and Self-care deficit for bathing R46.0 [facility] [id number] [place] [address] 34270- 1194 Feb, [facility] [address] 16152- 2754 Jan, Mood disorder F39 [facility] [address] 08026- 0278 Jan, BMI 45.0-49.9, adult Z68.42 and 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 [facility] [id number] [place] [address] 42249- 0726 Jan, [facility] [address] 49601- 0234 Jan, [facility] [id number] [place] [address] 66921- 4249 Jan, [facility] [id number] [place] [address] 21832- 3898 Jan, 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 [facility] [id number] [place] [address] 01663- 1554 Jan, [facility] [address] 78517- 4728 Jan, [facility] [id number] [place] [address] 27491- 0039 Jan, [facility] [id number] [place] [address] 64671- 9544 19 Jan, 2018 Allergic reaction to drug, initial encounter T78.40XA [facility] [address] 62749- 3640 17 Jan, 2018 BMI 45.0-49.9, adult Z68.42 and Facial droop R29.810 [facility] [address] 75637- 3640 14 Jan, 2018 Mood disorder F39 [facility] [address] 75492- 9029 11 Jan, 2018 Dermatomyositis M33.90 and BMI 40.0-44.9, adult Z68.41 [facility] [address] 58808- 9017 10 Jan, 2018 [facility] [address] 15889- 1795 05 Jan, 2018 [facility] [address] 43405- 8035 04 Jan, 2018 Irritation of left eye H57.8 and BMI 40.0-44.9, adult Z68.41 [facility] [address] 10456- 5958 Dec, Diabetes type 2, controlled E11.9 [facility] [address] 42826- 4679 Dec, Acute right ankle pain M25.571 [facility] [address] 40694- 3285 Dec, Other chronic pain G89.29 ; Diabetes type 2, controlled E11.9 ; Gait disturbance R26.9 ; Weakness R53.1 and Muscle spasm M62.838 [facility] [address] 66461- 7161 Dec, Acute non-recurrent maxillary sinusitis J01.00 [facility] [address] 61661- 7336 Dec, [facility] [id number] [place] [address] 82973- 7174 Dec, [facility] [id number] [place] [address] 44277- 7574 Dec, Acute non-recurrent maxillary sinusitis J01.00 [facility] [id number] [place] [address] 47412- 9012 Dec, Lumbago with sciatica, right side M54.41 and Lupus erythematosus L93.0 [facility] [id number] [place] [address] 30966- 9485 Dec, Mood disorder F39 [facility] [id number] [place] [address] 36026- 7523 Dec, Mood disorder F39 [facility] [id number] [place] [address] 03607- 8330 Dec, [facility] [id number] [place] [address] 67352- 5362 Dec, Acute right ankle pain M25.571 [facility] [id number] [place] [address] 83341- 9521 Nov, Lumbar radiculopathy M54.16 [facility] [id number] [place] [address] 27136- 6544 Nov, [facility] [id number] [place] [address] 33413- 5328 Nov, Mood disorder F39 [facility] [id number] [place] [address] 64469- 2260 Nov, Lumbago with sciatica, right side M54.41 and Other chronic pain G89.29 [facility] [id number] [place] [address] 40255- 1749 Nov, Acute right ankle pain M25.571 [facility] [id number] [place] [address] 01581- 9080 Nov, [facility] [id number] [place] [address] 69766- 3919 Oct, [facility] [id number] [place] [address] 61092- 6693 Oct, Plantar wart of both feet B07.0 [facility] [id number] [place] [address] 24213- 9314 Oct, [facility] [id number] [place] [address] 15525- 8961 Oct, Acute right ankle pain M25.571 and Plantar wart of both feet B07.0 [facility] [id number] [place] [address] 04679- 8315 September, Other chronic pain G89.29 [facility] [address] 41764- 5503 September, Other chronic pain G89.29 [facility] [id number] [place] [address] 63728- 7884 September, Other chronic pain G89.29 [facility] [id number] [place] [address] 22916- 0813 Aug, Mood disorder F39 [facility] [id number] [place] [address] 03711- 1984 Aug, Other chronic pain G89.29 ; Controlled type 2 diabetes mellitus without complication, without long-term current use of insulin E11.9 ; Low back pain M54.5 and Tinea corporis B35.4 [facility] [id number] [place] [address] 83284- 6910 Aug, Mood disorder F39 and Anxiety F41.9 [facility] [id number] [place] [address] 97216- 0818 Aug, Mood disorder F39 and Anxiety F41.9 [facility] [address] [place] [address]- 4564 Jul, [facility] [id number] [place] [address] 30967 -1902 Jul, Scabies B86 and BMI 45.0-49.9, adult Z68.42 [facility] [address] 20935- 8919 Jul, [facility] [address] 18015- 5280 Jul, Mood disorder F39 and Anxiety F41.9 [facility] [address] 47266- 3430 Jul, [facility] [address] 22727 -7189 27 Jun, 2017 Bronchitis J40 ; Dark urine R82.99 and BMI 45.0-49.9, adult Z68.42 [facility] [id number] [place] [address] 43718- 9550 14 Jun, 2017 Acute pain of right shoulder M25.511 and Acute pain of right knee M25.561 [facility] [id number] [place] [address] 94626- 0094 May, BMI 40.0-44.9, adult Z68.41 ; Controlled type 2 diabetes mellitus without complication, without long-term current use of insulin E11.9 ; Muscle cramping R25.2 ; Hot flashes R23.2 ; Mood disorder F39 ; Anxiety F41.9 and Morbid (severe) obesity due to excess calories E66.01 [facility] [id number] [place] [address] 43401- 9036 May, BMI 40.0-44.9, adult Z68.41 ; Controlled type 2 diabetes mellitus without complication, without long-term current use of insulin E11.9 ; Muscle cramping R25.2 and Hot flashes R23.2 [facility] [address] 89240- 5808 May, Tachycardia with heart rate 121-140 beats per minute R00.0 ; Morbid (severe) obesity due to excess calories E66.01 ; Diabetes type 2, controlled E11.9 and Enlarged thyroid gland E04.9 [facility] [address], [place] [address]- 8166 May, Encounter for well woman exam with [...] Dysuria R30.0 and Screening breast examination Z12.31 [facility] [id number] [place] [address] 84604- 9398 29 Apr, 2017 Mood disorder F39 ; Other chronic pain G89.29 and Anxiety F41.9 [facility] [id number] [place] [address] 36580- 2075 29 Apr, 2017 Lumbago with sciatica, left side M54.42 and Other chronic pain G89.29 [facility] [id number] [place] [address] 33614- 8300 Apr, Lupus erythematosus L93.0 [facility] [id number] [place] [address] 77596- 2413 Mar, Plantar wart of both feet B07.0 [facility] [id number] [place] [address] 20855- 5295 24 Mar, 2017 Lupus erythematosus L93.0 and Sinus drainage J34.89 [facility] [id number] [place] [address] 72252- 9081 09 Mar, 2017 Mood disorder F39 ; Other chronic pain G89.29 and Anxiety F41.[address] [place] [address]- 6605 Mar, Mood disorder F39 ; Arthritis M19.90 and Plantar warts B07.0 [facility] [address] 18940- 3645 Feb, Lupus erythematosus L93.0 [facility] [address] 05594- 7703 Feb, Other chronic pain G89.29 [facility] [address] 17955- 9127 Feb, Mood disorder F39 and Anxiety F41.9 [facility] [address] 33002- 2347 Jan, [facility] [address] 01524- 2957 Jan, Mood disorder F39 [facility] [address] 63298- 3293 Dec, Nail, ingrown L60.0 [facility] [address] 65687- 6809 Dec, Nail, ingrown L60.0 [facility] [address] 42966- 0342 Nov, Mood disorder F39 and Anxiety F41.9 [place] [address] 23833- 3571 Nov, Sinus drainage J34.89 ; Hot flashes R23.2 ; Anxiety F41.9 and Diabetes type 2, controlled E11.9 [facility] [address] 84938- 3115 Nov, Nail, ingrown L60.0 [facility] [id number] [place] [address] 03790- 0097 Oct, Anxiety F41.9 and Mood disorder F39 [facility] [address] [place] [address]- 1638 Oct, Nail, ingrown L60.0 and Anxiety F41.9 [facility] [id number] [place] [address] 39034- 9772 Oct, Lupus erythematosus L93.0 [facility] [id number] [place] [address] 37194- 5913 September, [facility] [address] 22159- 9857 September, [facility] [id number] [place] [address] 63997- 2632 September, Lupus erythematosus L93.0 [facility] [id number] [place] [address] 49983- 6373 Aug, [facility] [id number] [place] [address] 73253- 2987 Aug, Mood disorder F39 and Anxiety F41.9 [facility] [id number] [place] [address] 44013- 8807 Aug, Lupus erythematosus L93.0 ; Diabetes type 2, controlled E11.9 and Localized edema R60.0 [facility] [id number] [place] [address] 70734- 6699 Aug, [facility] [id number] [place] [address] 65576- 4578 Jul, Anxiety F41.9 and Mood disorder F39 [facility] [id number] [place] [address] 04317- 8319 Jul, Diabetes type 2, controlled E11.9 [facility] [id number] [place] [address] 36116- 5550 Jun, Anxiety F41.9 [facility] [id number] [place] [address] 67452- 9769 May, [facility] [address] [place] [address]- 5337 May, [facility] [address] 51923- 9233 May, Nausea R11.0 ; Other chronic pain G89.29 and Pain in right knee M25.561 [facility] [id number] [place] [address] 44301- 3372 May, [facility] [address] 20112- 6832 Apr, Tear of medial meniscus of right knee, current, unspecified tear type, subsequent encounter S83.241D and Tear of lateral meniscus of right knee, current, unspecified tear type, subsequent encounter S83.281D [facility] [id number] [place] [address] 26998- 2113 Apr, Anxiety F41.9 and Mood disorder F39 [facility] [address] 11852- 9752 Apr, Anxiety F41.9 [facility] [address] 46060- 0001 Apr, [facility] [id number] [place] [address] 12131- 5366 Mar, [facility] [id number] [place] [address] 14166- 1839 Mar, Lupus erythematosus L93.0 and Diabetes type 2, controlled E11.9 [facility] [id number] [place] [address] 43688- 9267 Mar, Mood disorder F39 [facility] [address] 87991- 4101 03 Mar, 2016 Tear of lateral meniscus of right knee, current, unspecified tear type, initial encounter S83.281A and Osteoarthritis of right knee, unspecified osteoarthritis type M17.9 [facility] [address] 11744- 2254 Mar, [facility] [address], [place] [address]- 0099 Feb, Mood disorder F39 [facility] [id number] [place] [address] 14070- 2676 Feb, Rash R21 [facility] [id number] [place] [address] 45064- 8427 Feb, [facility] [id number] [place] [address] 97684- 8943 Jan, Other chronic pain G89.29 and Muscle spasm M62.838 [facility] [id number] [place] [address] 73299- 1424 Jan, Mood disorder F39 [facility] [id number] [place] [address] 26590- 0209 Jan, Pain in right knee M25.561 ; Other chronic pain G89.29 and Muscle spasm M62.838 [facility] [address] [place] [address] 51547- 3312 Dec, [facility] [id number] [place] [address] 63291- 5408 Dec, [facility] [id number] [place] [address] 78707- 6272 Nov, [facility] [id number] [place] [address] 42717- 3477 Nov, Mood disorder F39 [facility] [id number] [place] [address] 67489- 8170 Nov, Diabetes type 2, controlled E11.9 ; Bronchitis J40 ; Edema, unspecified type R60.9 ; Weight gain R63.5 and Right knee pain, unspecified chronicity M25.561 [facility] [address], [place] [address]- 4403 Oct, Mood disorder F39 [facility] [id number] [place] [address] 07117- 0762 Oct, Lupus erythematosus L93.0 and Bilateral edema of lower extremity R60.0 [facility] [id number] [place] [address] 26436- 9238 Oct, Mood disorder F39 and Anxiety F41.9 [facility] [id number] [place] [address] 66622- 9676 September, Mood disorder F39 ; Anxiety F41.9 and Anger reaction R45.4 [facility] [id number] [place] [address] 22928- 3011 September, Diabetes type 2, controlled E11.9 ; Edema, unspecified type R60.9 and Fatigue, unspecified type R53.83 [facility] [id number] [place] [address] 59449- 1690 Aug, Mood disorder F39 and Generalized anxiety disorder F41.1 [facility] [id number] [place] [address] 68649- 0562 Aug, Diabetes type 2, controlled E11.9 ; Sinusitis J32.9 and Mood disorder F39 [facility] [id number] [place] [address] 67250- 8261 Aug, Lupus erythematosus L93.0 [facility] [id number] [place] [address] 22383- 5148 14 Aug, 2015 [facility] [id number] [place] [address] 74445- 2964 Aug, [facility] [id number] [place] [address] 64882- 3117 Jul, Diabetes type 2, controlled E11.9 [facility] [id number] [place] [address] 05393- 7858 Jul, Mood disorder F39 and Depression F32.9 [facility] [id number] [place] [address] 77895- 3787 Jul, Lupus erythematosus L93.0 and Diabetes type 2, controlled E11.9 [facility] [id number] [place] [address] 70618- 5426 Jul, Mood disorder F39 and Anxiety F41.9 [facility] [address], [place] [address]- 4726 Jul, [facility] [id number] [place] [address] 86105- 1924 Jul, [facility] [id number] [place] [address] 16794- 7301 Jun, Mood disorder F39 and Anxiety F41.9 [facility] [id number] [place] [address] 95917- 7008 Jun, Mood disorder F39 [facility] [id number] [place] [address] 86455- 3229 Jun, [facility] [id number] [place] [address] 60230- 2704 Jun, [facility] [id number] [place] [address] 54740- 6000 Jun, Mood disorder F39 [facility] [id number] [place] [address] 25841- 5381 Jun, [facility] [id number] [place] [address] 72638- 4719 May, [facility] [address], [place] [address] 2543 May, [facility] [id number] [place] [address] 07802- 6748 May, [facility] [address], [place] [address]- 4369 May, [facility] [id number] [place] [address] 18308- 2393 20 Lul, 2016 Anxiety F41.9 ; Dermatomyositis M33.90 and Diabetes type 2, controlled E11.[address] [facility] [id number] [place] [address] 74814 -4187 May, Sinusitis J32.9 and Cough R05 [facility] [id number] [place] [address] 50975- 3405 07 May, 2015 Mood disorder F39 [facility] [id number] [place] [address] 01468- 3479 May, Adjustment disorder with mixed anxiety and depressed mood F43.23 [facility] [id number] [place] [address] 16420- 4692 Apr, [facility] [id number] [place] [address] 64450- 8298 Apr, [facility] [id number] [place] [address] 64444- 1240 Apr, Generalized anxiety disorder F41.1 and Mood disorder F39 [facility] [id number] [place] [address] 72747- 7751 Mar, [facility] [id number] [place] [address] 69078- 7338 Mar, [facility] [id number] [place] [address] 50105- 6879 Mar, [facility] [id number] [place] [address] 34144- 8547 Mar, Mood disorder F39 [facility] [id number] [place] [address] 19531- 1335 Feb, [facility] [id number] [place] [address] 70213- 1291 Feb, Diabetes E11.9 and Bronchitis J40 [facility] [id number] [place] [address] 80230- 8098 Feb, [facility] [address] [place] [address] Feb, [facility] [id number] [place] [address] 41612- 5197 Feb, Major depression, recurrent, full remission F33.42 and KELLY ( generalized anxiety disorder) F41.1 [facility] [id number] [place] [address] 73850- 1472 Feb, [facility] [id number] [place] [address] 82885- 2878 Feb, Single major depressive episode, in partial or unspecified remission F32.5 [place] [address] [address]- 1932 Jan, Fatigue 780.79 [place] [id number] [place] [address] 12035- 6011 Jan, [place] [address] 14362- 4565 Jan, Diabetes with other specified manifestations, type II or unspecified type, not stated as uncontrolled 250.80 [facility] [id number] [place] [address] 67113- 8989 Jan, [facility] [id number] [place] [address] 76255- 5144 Dec, Hot flashes 627.2 ; Memory loss 780.93 and Joint pain 719.40 [place] [id number] [place] [address] 35483- 1633 Dec, Major depression, recurrent 296.30 ; Generalized anxiety disorder 300.02 ; Adjustment disorder with depressed mood 309.0 and No condition on [place] II V71.09 [place] [id number] [place] [address] 77523- 0475 Dec, [place] [id number] [place] [address] 36485- 7758 Nov, Cognitive and neurobehavioral dysfunction 294.9 ; Major depressive disorder, recurrent episode, moderate degree 296.32 and Anxiety state , unspecified 300.00 [place] [id number] [place] [address] 66451- 6079 Nov, [place] [id number] [place] [id number] [address] Nov, Bronchitis 490 and Diabetes with other specified manifestations, type II or unspecified type, not stated as uncontrolled 250.80 [place] [id number] [place] [address] 09061- 5212 Nov, Major depressive disorder, recurrent episode, moderate 296.32 and Anxiety disorder, unspecified 300.00 [place] [id number] [place] [address] 67611- 4529 Nov, Anxiety, generalized 300.02 ; Intermittent explosive disorder 312.34 ; No condition on [place] II V71.09 and No condition on axis III V71.[address] 29210- 4714 Oct, Diabetes with other specified manifestations, type II or unspecified type, not stated as uncontrolled 250.80 ; Urinary tract infection, site not specified 599.0 and Bronchitis [address] [place] [id number] [place] [address] 18526- 7911 Oct, Intermittent explosive disorder 312.34 ; Bipolar 1 disorder , depressed, moderate 296.52 ; Major depression, chronic 296.20 ; No condition on [place] II V71.09 and No condition on axis III V71.09 [place] [id number] [place] [address] 51790- 1450 Oct, Major depressive disorder, recurrent episode, moderate 296.32 ; Anxiety state 300.00 ; Cognitive decline 294.9 and No condition on [place] II V71.[id number] [place] [address] 07724- 3845 Oct, [place] [id number] [place] [address] 03097- 1991 Oct, Major depressive disorder, recurrent episode, moderate 296.32 ; Anxiety disorder, unspecified 300.00 and Persistent disorder of initiating or maintaining sleep 307.42 [facility] [id number] [place] [address] 31485- 9225 September, Diabetes with other specified manifestations, type II or unspecified type, not stated as uncontrolled 250.80 ; Memory loss 780.93 and Cognitive complaints 799.59 [facility] [id number] [place] [address] 59719- 1987 September, No condition on [place] II V71.09 ; Major depression, recurrent 296.30 and Persistent mood [affective] disorder, unspecified 296.90 [facility] [id number] [place] [address] 82843- 0033 Aug, [facility] [id number] [place] [address] 35783- 1176 Aug, [facility] [id number] [place] [address] 10370- 4013 Aug, [facility] [id number] [place] [address] 14071- 9152 Jul, [facility] [id number] [place] [address] 636885- 2376 Jul, [facility] [id number] [place] [address] 61570- 8816 Jul, [facility] [id number] [place] [address] 97792- 6306 Jul, [facility] [id number] [place] [address] 67032- 2546 Jul, [facility] [id number] [place] [address] 33268- 8766 Jun, [facility] [id number] [place] [address] 92511- 2546 Jun, [facility] [id number] [place] [address] 54815- 6358 Jun, 2014 [facility] [place] [facility] [address] [id number] [place] [address]- 5139 Jun, 2014 [facility] [place] [facility] [address] [facility] [id number] [place] [address]- 0806 Jun, 2014 [facility] [place] [facility] [address] [facility] [id number] [place] [address]- 0143 Jun, 2014 [facility] [place] [facility] [address] [facility] [id number] [place] [address]- 1240 Jun, 2014 [facility] [place] [facility] [address] [facility] [id number] [place] [address]- 2009 Jun, 2014 [facility] [place] [facility] [address] [facility] [id number] [place] [address]- 2594 Jun, 2014 [facility] [place] [facility] [address] [place] [id number] [place] [address]- 3546 Jun, 2014 [facility] [place] [facility] [address] [facility] [id number] [place] [address]- 9475 Jun, 2014 [facility] [place] [facility] [id number] [place] [address]- 1300 Jun, 2014 [facility] [place] [facility] [address] [facility] [id number] [place] [address]- 5585 Jun, [facility] [place] [facility] [id number] [place] [address]- 8940 May, [facility] [place] [facility] [address] [facility] [id number], [place] [address]- 6630 May, [facility] [place] [facility] [address] [facility] [id number] [place] [address]- 9937 Apr, [facility] [place] [facility] [address] [facility] [id number] [place] [address]- 6827 Apr, [facility] [place] [facility] [id number] [place] [address]- 6093 Apr, [facility] [place] [facility] [address] [id number] [place] [address]- 0824 Apr, [facility] [place] [facility] [address] [id number] [place] [address]- 3256 Apr, [facility] [place] [facility] [address] [id number] [place] 9426 Apr, [facility] [place] [facility] [address] [id number] [place] [address]- 3066 Apr, [facility] [place] [facility] [address] [id number] [place] [address]- 6742 Apr, [facility] [place] [facility] [address] [id number] [place] [address]- 2336 Apr, [facility] [place] [facility] [address] [id number] [place] [address]- 9923 Apr, [facility] [place] [facility] [address] [id number] [place] [address]- 2476 Apr, [facility] [place] [facility] [address] [id number] [place] [address]- 4874 Apr, [facility] [place] [facility] [address] [id number] [place] [address]- 2325 Apr, [facility] [place] [facility] [address] [id number] [place] [address]- 3350 Apr, [facility] [place] [facility] [address] [id number] [place] [address]- 2832 Apr, [facility] [place] [facility] [address] [id number] [place] 3237 Apr, [facility] [place] [facility] [address] [id number] [place] 4656 Apr, [facility] [place] [facility] [address] [id number] [place] [address]- 0050 Apr, [facility] [place] [facility] [address] [id number] [place] [address]- 4797 Apr, [facility] [place] [facility] [address] [id number] [place] [address]- 1568 Apr, [facility] [place] [facility] [address] [id number] [place] [address]- 3382 Mar, [facility] [place] [facility] [address] [id number] [place] [address]- 7755 Mar, [facility] [place] [facility] [address] [id number] [place] [address]- 6111 Mar, [facility] [place] [facility] [address] [id number] [place] [address]- 3212 Mar, [facility] [place] [facility] [address] [id number] [place] [address]- 5089 Mar, [facility] [place] [facility] [address] [id number] [place] [address]- 3301 Mar, [facility] [place] [facility] [address] [id number], [place] [address]- 8320 Mar, [facility] [place] [facility] [address] [id number], [place] [address]- 2778 Mar, [facility] [place] [facility] [address] [id number], [place] [address]- 3174 Mar, [facility] [place] [facility] [address] [id number], [place] [address]- 2205 Mar, [facility] [place] [facility] [address] [id number], [place] [address]- 2480 Mar, [facility] [place] [facility] [address] [id number], [place] [address]- 5749 Mar, [facility] [place] [facility] [address] [id number], [place] [address]- 3940 Mar, [facility] [place] [facility] [address] [id number], [place] [address]- 2744 Feb, [facility] [place] [facility] [address] [id number] [place] [address]- 8045 31 Feb, 2013 [facility] [place] [facility] [address] [id number] [place] [address]- 4481 30 Feb, 2013 [facility] [place] [facility] [address] [id number] [place] [address]- 2439 Feb, [facility] [place] [facility] [address] [id number] [place] [address]- 7914 Feb, [facility] [place] [facility] [address] [id number] [place] [address]- 7620 Feb, [facility] [place] [facility] [address] [id number] [place] [address]- 1844 Feb, [facility] [place] [facility] [address] [id number] [place] [address]- 1139 Feb, [facility] [place] [facility] [address] [id number] [place] [address]- 8041 Feb, [facility] [place] [facility] [address] [id number] [place] [address]- 2270 Feb, [facility] [place] [facility] [address] [id number] [place] [address]- 9908 Feb, [facility] [place] [facility] [address] [id number] [place] [address]- 5929 Feb, [facility] [place] [facility] [address] [id number] [place] [address]- 0267 10 Feb, 2014 [facility] [place] [facility] [address] [id number] [place] [address]- 9959 07 Feb, 2014 [facility] [place] [facility] [address] [id number] [place] [address]- 5724 07 Feb, 2014 [facility] [place] [facility] [address] [id number] [place] [address]- 8895 10 Jan, 2013 [facility] [place] [facility] [address] [id number] [place] [address]- 3481 08 Sep, 2013 [facility] [place] [facility] [address] [id number] [place] [address]- 3781 Jan, 2013 [facility] [place] [facility] [address] [id number] [place] 2520 Jan, [facility] [place] [facility] [address] [id number] [place] [address]- 7948 Jan, [facility] [place] [facility] [address] [id number] [place] [address]- 9684 Dec, [facility] [place] [facility] [address] [id number] [place] [address]- 8538 Dec, [facility] [place] [facility] [address] [id number] [place] [address]- 4237 Dec, [facility] [place] [facility] [address] [id number] [place] [address]- 1338 Dec, [facility] [place] [facility] [address] [id number] [place] [address]- 4488 Nov, [facility] [place] [facility] [address] [id number] [place] [address]- 2760 Nov, [facility] [place] [facility] [address] [id number] [place] [address]- 4832 Nov, [facility] [place] [facility] [address] [id number] [place] [address]- 1430 Nov, [facility] [place] [facility] [address] [id number] [place] [address]- 7249 Nov, [facility] [place] [facility] [address] [id number] [place] [address]- 5703 Nov, [facility] [place] [facility] [address] [id number] [place] [address]- 6798 Nov, [facility] [place] [facility] [address] [id number] [place] [address]- 5902 Nov, [facility] [place] [facility] [address] [id number] [place] [address]- 8667 Nov, [facility] [place] [facility] [address] [id number] [place] [address]- 6552 Nov, [facility] [place] [facility] [address] [id number] [place] [address]- 8142 Oct, [facility] [place] [facility] [address] [id number] [place] [address]- 4020 Oct, [facility] [place] [facility] [address] [id number] [place] [address]- 1853 September, [facility] [place] [facility] [address] [id number] [place] [address]- 4908 September, [facility] [place] [facility] [address] [id number] [place] [address]- 8128 September, [facility] [place] [facility] [address] [id number] [place] [address]- 9863 September, [facility] [place] [facility] [address] [id number] [place] [address]- 6157 Aug, [facility] [place] [facility] [address] [id number] [place] [address]- 3750 Aug, [facility] [place] [facility] [address] [id number] [place] [address]- 0077 Aug, [facility] [place] [facility] [address] [id number] [place] [address]- 9611 Jul, [facility] [place] [facility] [address] [id number] [place] [address]- 8732 24 Jul, 2013 [facility] [place] [facility] [address] [id number] [place] [address]- 4860 Jul, [facility] [place] [facility] [address] [id number] [place] [address]- 3705 Jul, [facility] [place] [facility] [address] [id number] [place] [address]- 1853 May, [facility] [place] [facility] [address] [id number] [place] [address]- 9290 17 May, 2013 [facility] [address] [id number] [place] [address]- 0572 May, [facility] [place] [facility] [address] [id number] [place] [address]- 4189 15 Mar, 2013 [facility] [address] [id number] [place] [address]- 0141 15 Mar, 2013 [facility] [place] [facility] [address] [id number] [place] [address]- 1305 Mar, [facility] [address] [id number] [place] [address]- 5858 Mar, [facility] [place] [facility] [address] [id number] [place] [address]- 8392 16 Feb, 2013 [facility] [place] [facility] [address] [id number] [place] [address]- 0656 16 Feb, 2013 [facility] [address] [id number] [place] [address]- 8715 Feb, [facility] [place] [facility] [address] [id number] [place] [address]- 1875 16 Jan, 2013 [facility] [address] [id number] [place] [address]- 8274 12 Jan, 2013 [facility] [place] [facility] [address] [id number] [place] [address]- 4664 Jan, [facility] [place] [facility] [address] [id number] [place] [address]- 3422 Dec, [facility] [place] [facility] [address] [id number] [place] [address]- 5691 Dec, [facility] [place] [facility] [address] [id number] [place] [address] 2546 Dec, [facility] [place] [facility] [address] [id number] [place] [address]- 7847 Dec, [facility] [address] [id number] [place] [address]- 0889 Nov, [facility] [place] [facility] [address] [id number] [place] [address]- 3517 Oct, [facility] [place] [facility] [address] [id number] [place] [address]- 8473 Oct, [facility] [place] [facility] [address] [id number] [place] [address]- 9604 September, [facility] [address] [id number] [place] 1379 September, [facility] [place] [facility] [address] [id number] [place] [address]- 6675 September, [facility] [address] [id number] [place] [address]- 4138 Aug, [facility] [place] [facility] [address] [id number] [place] [address]- 3018 Aug, [facility] [place] [facility] [address] [id number] [place] [address]- 4680 Aug, [facility] [place] [facility] [address] [id number] [place] [address]- 8866 Aug, [facility] [place] [facility] [address] [id number] [place] [address]- 6135 Jul, [facility] [place] [facility] [address] [id number] [place] [address]- 1997 Jul, [facility] [place] [facility] [address] [id number] [place] [address]- 7146 21 Jul, 2012 [facility] [place] [facility] [address] [id number] [place] [address]- 3258 15 Jul, 2012 [facility] [place] [facility] [address] [id number] [place] [address]- 3787 14 Jul, 2012 [facility] [place] [facility] [address] [id number] [place] [address]- 2747 13 Jul, 2012 [facility] [address] [id number] [place] [address]- 3853 Jul, [facility] [place] [facility] [address] [id number] [place] [address]- 1393 06 Jun, 2012 [facility] [place] [facility] [address] [id number] [place] [address]- 0816 Jun, [facility] [place] [facility] [address] [id number] [place] [address]- 1569 Jun, [facility] [place] [facility] [address] [id number] [place] [address]- 2400 Jun, [facility] [place] [facility] [address] [id number] [place] [address]- 3410 May, [facility] [address] [id number] [place] [address]- 8299 May, [facility] [address] [id number] [place] [address]- 8572 May, [facility] [place] [facility] [address] [id number] [place] [address]- 9270 May, [facility] [address] [id number] [place] [address]- 0708 May, [facility] [address] [id number] [place] [address]- 7165 Apr, [facility] [place] [facility] [address] [id number] [place] [address]- 4828 Apr, [facility] [place] [facility] [address] [id number] [place] [address]- 7800 Mar, [facility] [place] [facility] [address] [id number] [place] [address]- 1802 Mar, [facility] [place] [facility] [address] [id number] [place] [address]- 1588 Mar, [facility] [place] [facility] [address] [id number] [place] [address]- 3781 Mar, [facility] [place] [facility] [address] [id number] [place] 0136 Mar, [facility] [place] [facility] [address] [id number] [place] [address]- 9300 Mar, [facility] [place] [facility] [address] [id number] [place] [address]- 6623 Mar, [facility] [place] [facility] [address] [id number] [place] [address]- 7341 Mar, [facility] [place] [facility] [address] [id number] [place] [address]- 9045 Mar, [facility] [place] [facility] [address] [id number] [place] [address]- 5978 Mar, [facility] [place] [facility] [address] [id number] [place] [address]- 5657 Feb, [facility] [place] [facility] [address] [id number] [place] [address]- 1032 Feb, [facility] [place] [facility] [address] [id number] [place] [address]- 4530 Feb, [facility] [place] [facility] [address] [id number] [place] [address]- 1556 Feb, [facility] [place] [facility] [address] [id number], [place] [address]- 1138 Feb, [facility] [place] [facility] [address] [id number] [place] [address]- 4943 Feb, [facility] [place] [facility] [address] [id number] [place] [address]- 8008 Feb, [facility] [place] [facility] [address] [id number] [place] [address]- 6421 Jan, [facility] [place] [facility] [address] [id number], [place] [address]- 6135 Jan, [facility] [place] [facility] [address] [id number] [place] [address]- 8129 Dec, [facility] [place] [facility] [address] [id number] [place] 1254 Dec, [facility] [place] [facility] [address] [id number] [place] [address]- 0436 Dec, [facility] [place] [facility] [address] [id number] [place] [address]- 7017 Dec, [facility] [place] [facility] [address] [id number] [place] [address]- 1863 Dec, [facility] [place] [facility] [address] [id number] [place] [address]- 2103 Dec, [facility] [place] [facility] [address] [id number] [place] [address]- 5551 Nov, [facility] [place] [facility] [address] [id number] [place] [address]- 2999 Nov, [facility] [place] [facility] [address] [id number] [place] [address]- 8383 Nov, [facility] [place] [facility] [address] [id number] [place] [address] Nov, [facility] [place] [facility] [address] [id number] [place] [address] September, [facility] [place] [facility] [address] [id number] [place] [address] September, [facility] [place] [facility] [address] [id number] [place] [address] September, [facility] [place] [facility] [address] [id number] [place] [address] Jul, [facility] [place] [facility] [address] [id number] [place] [address] Jun, [facility] [place] [facility] [address] [id number], [place] [address] 20 Jun, 2011 [facility] [address] [id number] [address] 13 Jun, 2011 [facility] [id number] [place] [address] Apr, [facility] [id number] [address] Mar, [facility] [id number] [address] Mar, [facility] [id number] [address] Feb, [facility] [id number], [place] [address] Feb, [facility] [id number], [place] [address] Feb, [facility] [address] [id number] [address] Jul, [facility] [address] [id number], [place] [address] Feb, IMMUNIZATIONS No Known Immunizations SOCIAL HISTORY Never Assessed REASON FOR VISIT Controlled Med Refill 03/23/18 PLAN OF CARE VITAL SIGNS MEDICATIONS Medication Instructions Dosage Frequency Start Date End Date Duration Status [place] 10-325 MG Orally every 6 hrs 1 tablet as needed Feb, 28 days Active RESULTS No Results PROCEDURES [...]
--- OUTSIDE RECORDS SUMMARY | 2018-05-09 22:35 | XMS REPORT ---
Author Author [facility] Address [address] [place] [address] Care Team Providers Care Real Estate Operations Manager Name Role Phone MACY [facility] Unavailable PROBLEMS Type Condition ICD9-CM Code JMO93-GU Code Onset Dates Condition Status SNOMED Code Problem Enlarged thyroid gland E04.9 Active 2422606 Problem Morbid (severe) obesity due to excess calories E66.01 Active 043596575 Problem Dermatomyositis M33.90 Active 549504326 Problem Diabetes with other specified manifestations, type II or unspecified type, not stated as uncontrolled 250.80 Active 199383120 Problem Menopause Z78.0 Active 538293255 Problem Other specified mental disorders due to known physiological condition F06.8 Active 71136844 Problem Diabetes type 2, controlled E11.9 Active 62059043 Problem Mood disorder F39 Active 14651127 Problem Gait disturbance R26.9 Active 30454568 Problem Lumbago with sciatica, right side M54.41 Active 387863012 Problem Frequent falls R29.6 Active 330828782 Problem Facial droop R29.810 Active 11651500 Problem Other chronic pain G89.29 Active 64191596 Problem Plantar warts B07.0 Active 70478405 Problem Osteoarthritis of right knee, unspecified osteoarthritis type M17.9 Active 007506158 Problem Anxiety F41.9 Active 48465569 Problem Lumbago with sciatica, left side M54.42 Active 051415223 Problem Controlled type 2 diabetes mellitus without complication, without long -term current use of insulin E11.9 Active 669197828 Problem Arthritis M19.90 Active 2058025 Problem Body mass index (BMI) of 45.0-49.9 in adult Z68.42 Active 290805901 Problem Allergic rhinitis due to pollen J30.1 Active 81691535 Problem Plantar wart of both feet B07.0 Active [id number] Problem Tachycardia with heart rate 121-140 beats per minute R00.0 Active 5900007 ALLERGIES No Information ENCOUNTERS Encounter Location Date Diagnosis [facility] [address], [place] [address] Apr, [facility] [id number] [place] [address] 65162- 2572 Mar, [facility] [id number] [place] [address] 94568- 8988 Mar, [facility] [id number] [place] [address] 52447- 8301 Mar, [facility] [id number] [place] [address] 66984- 3598 Feb, [facility] [id number] [place] [address] 02076- 0964 Feb, [facility] [id number] [place] [address] 11263- 8638 Feb, Mood disorder F39 [facility] [id number] [place] [address] 41650- 9887 15 Feb, 2018 Other chronic pain G89.29 ; Anxiety F41.9 and Diabetes with other specified manifestations, type II or unspecified type, not stated as uncontrolled 250.80 [facility] [address], [place] [address] 5307 08 Feb, 2018 BMI 40.0-44.9, adult Z68.41 [facility] [id number] [place] [address] 99172- 0388 Feb, [facility] [id number] [place] [address] 62508- 8848 Feb, [facility] [id number] [place] [address] 04820- 1866 03 Feb, 2018 BMI 45.0-49.9, adult Z68.42 ; Gait disturbance R26.9 ; Other specified mental disorders due to known physiological condition F06.8 ; Weakness R53.1 ; Frequent falls R29.6 and Self-care deficit for bathing R46.0 [facility] [id number] [place] [address] 79196- 1902 03 Feb, 2018 [facility] [id number] [place] [address] 35872- 0140 28 Jan, [address] 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 [id number] [place] [address] 87275- 4365 25 Jan, 2018 [facility] [address] 79059- 0458 24 Jan, 2018 [facility] [address] 88343- 5231 Jan, 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 [id number] [place] [address] 31545- 0549 Jan, [facility] [id number] [place] [address] 74197- 2910 Jan, [facility] [id number] [place] [address] 37339- 8981 Jan, [facility] [address] 52428- 2589 19 Jan, 2018 Allergic reaction to drug, initial encounter T78.40XA [facility] [address] 68629- 0332 17 Jan, 2018 BMI 45.0-49.9, adult Z68.42 and Facial droop R29.810 [facility] [id number] [place] [address] 19412- 2356 14 Jan, 2018 Mood disorder F39 [facility] [id number] [place] [address] 17811- 0342 11 Jan, 2018 Dermatomyositis M33.90 and BMI 40.0-44.9, adult Z68.41 [facility] [id number] [place] [address] 14681- 1168 10 Jan, 2018 [facility] [address] 80411- 6155 05 Jan, 2018 [facility] [address] 65147- 8198 04 Jan, 2018 Irritation of left eye H57.8 and BMI 40.0-44.9, adult Z68.41 [facility] [address] 96349- 4295 Dec, Diabetes type 2, controlled E11.9 [facility] [address] 30208- 5891 Dec, Acute right ankle pain M25.571 [facility] [id number] [place] [address] 06188- 2305 Dec, Other chronic pain G89.29 ; Diabetes type 2, controlled E11.9 ; Gait disturbance R26.9 ; Weakness R53.1 and Muscle spasm M62.838 [facility] [id number] [place] [address] 05779- 4560 Dec, Acute non-recurrent maxillary sinusitis J01.00 [facility] [id number] [place] [address] 83037- 5193 Dec, [facility] [id number] [place] [address] 95882- 8726 Dec, [facility] [address] 88666- 9977 Dec, Acute non-recurrent maxillary sinusitis J01.00 [facility] [address] 50366- 0869 Dec, Lumbago with sciatica, right side M54.41 and Lupus erythematosus L93.0 [facility] [id number] [place] [address] 15819- 7086 Dec, Mood disorder F39 [facility] [id number] [place] [address] 26454- 4681 Dec, Mood disorder F39 [facility] [id number] [place] [address] 24769- 8628 Dec, [facility] [id number] [place] [address] 98534- 8304 Dec, Acute right ankle pain M25.571 [facility] [id number] [place] [address] 56691- 7402 Nov, Lumbar radiculopathy M54.16 [facility] [id number] [place] [address] 48733- 0200 Nov, [facility] [id number] [place] [address] 84252- 5464 Nov, Mood disorder F39 [facility] [id number] [place] [address] 11223- 4688 Nov, Lumbago with sciatica, right side M54.41 and Other chronic pain G89.29 [facility] [id number] [place] [address] 85214- 1287 Nov, Acute right ankle pain M25.571 [facility] [id number] [place] [address] 38597- 3856 Nov, [facility] [id number] [place] [address] 82356- 6381 Oct, [facility] [id number] [place] [address] 80130- 1911 12 Oct, 2017 Plantar wart of both feet B07.0 [facility] [id number] [place] [address] 85161- 4736 Oct, [facility] [id number] [place] [address] 86196- 6703 Oct, Acute right ankle pain M25.571 and Plantar wart of both feet B07.0 [facility] [id number] [place] [address] 60595- 3071 September, Other chronic pain G89.29 [facility] [address] 16900- 6960 September, Other chronic pain G89.29 [facility] [id number] [place] [address] 04493- 8446 September, Other chronic pain G89.29 [facility] [id number] [place] [address] 35196- 8101 Aug, Mood disorder F39 [facility] [address] 21440- 4921 Aug, Other chronic pain G89.29 ; Controlled type 2 diabetes mellitus without complication, without long-term current use of insulin E11.9 ; Low back pain M54.5 and Tinea corporis B35.4 [facility] [id number] [place] [address] 98116- 2632 Aug, Mood disorder F39 and Anxiety F41.9 [facility] [id number] [place] [address] 94883- 4777 Aug, Mood disorder F39 and Anxiety F41.9 [facility] [id number] [place] [address] 97202- 0782 Jul, [facility] [address] 18642 -0223 Jul, Scabies B86 and BMI 45.0-49.9, adult Z68.42 [facility] [id number] [place] [address] 19922- 1178 Jul, [facility] [id number] [place] [address] 58351- 5367 Jul, Mood disorder F39 and Anxiety F41.9 [facility] [id number] [place] [address] 16405- 8098 Jul, [facility] [id number] [place] [address] 72425 -6025 Jun, Bronchitis J40 ; Dark urine R82.99 and BMI 45.0-49.9, adult Z68.42 [facility] [id number] [place] [address] 63767- 5978 14 Jun, 2017 Acute pain of right shoulder M25.511 and Acute pain of right knee M25.561 [facility] [id number] [place] [address] 81671- 0995 May, BMI 40.0-44.9, adult Z68.41 ; Controlled type 2 diabetes mellitus without complication, without long-term current use of insulin E11.9 ; Muscle cramping R25.2 ; Hot flashes R23.2 ; Mood disorder F39 ; Anxiety F41.9 and Morbid (severe) obesity due to excess calories E66.01 [facility] [id number] [place] [address] 27170- 5446 May, BMI 40.0-44.9, adult Z68.41 ; Controlled type 2 diabetes mellitus without complication, without long-term current use of insulin E11.9 ; Muscle cramping R25.2 and Hot flashes R23.2 [facility] [address] [place] [address] 73813- 4883 May, Tachycardia with heart rate 121-140 beats per minute R00.0 ; Morbid (severe) obesity due to excess calories E66.01 ; Diabetes type 2, controlled E11.9 and Enlarged thyroid gland E04.[address] [place] [address] 22774- 9029 May, Encounter for well woman exam with [...] Dysuria R30.0 and Screening breast examination Z12.31 [facility] [address] 20692- 9037 Apr, Mood disorder F39 ; Other chronic pain G89.29 and Anxiety F41.9 [place] [address] 31718- 5658 Apr, Lumbago with sciatica, left side M54.42 and Other chronic pain G89.29 [facility] [address] 27691- 8498 Apr, Lupus erythematosus L93.0 [facility] [address] 97868- 4306 Mar, Plantar wart of both feet B07.0 [place] [address] 27608- 5626 Mar, Lupus erythematosus L93.0 and Sinus drainage J34.89 [facility] [id number] [place] [address] 55407- 5841 Mar, Mood disorder F39 ; Other chronic pain G89.[address] [facility] [address] 86391- 5148 Mar, Mood disorder F39 ; Arthritis M19.90 and Plantar warts B07.0 [facility] [address] 10341- 3789 Feb, Lupus erythematosus L93.0 [facility] [id number] [place] [address] 00593- 7761 Feb, Other chronic pain G89.29 [facility] [id number] [place] [address] 61866- 8054 Feb, Mood disorder F39 [address] An[address]9 [facility] [id number] [place] [address] 15932- 4152 Jan, [facility] [id number] [place] [address] 41521- 8038 Jan, Mood disorder F39 [facility] [address] 56115- 4208 Dec, Nail, ingrown L60.0 [place] [place] [address] 50544- 9658 Dec, Nail, ingrown L60.0 [facility] [id number] [place] [address] 30180- 8782 Nov, Mood disorder F39 and Anxiety F41.9 [facility] [id number] [place] [address] 78631- 2569 Nov, Sinus drainage J34.89 ; Hot flashes R23.2 ; Anxiety F41.9 and Diabetes type 2, controlled E11.9 [facility] [id number] [place] [address] 33460- 8364 Nov, Nail, ingrown L60.0 [facility] [id number] [place] [address] 06954- 7306 Oct, Anxiety F41.9 and Mood disorder F39 [facility] [id number] [place] [address] 69663- 7456 Oct, Nail, ingrown L60.[address] [facility] [id number] [place] [address] 94966- 3226 Oct, Lupus erythematosus L93.0 [facility] [id number] [place] [address] 00846- 1903 September, [facility] [id number], [place] [address]- 3536 September, [facility] [id number] [place] [address] 49046- 4836 September, Lupus erythematosus L93.0 [facility] [address], [place] [address]- 0227 Aug, [facility] [id number] [place] [address] 28025- 1015 Aug, Mood disorder F39 and Anxiety [address]41.9 [facility] [id number] [place] [address] 64557- 1127 Aug, Lupus erythematosus L93.0 ; Diabetes type 2, controlled E11.9 and Localized edema R60.0 [facility] [id number] [place] [address] 20170- 1342 Aug, [facility] [id number] [place] [address] 35778- 0949 Jul, Anxiety F41.9 and Mood disorder F39 [facility] [id number] [place] [address] 69746- 7570 Jul, Diabetes type 2, controlled E11.9 [facility] [address] [place] [address] 32384- 9409 Jun, Anxiety F41.9 [facility] [address], [place] [address]- 7693 May, [facility] [address] [place] [address] 57164- 8343 May, [facility] [address] [place] [address] 32944- 4422 May, Nausea R11.0 ; Other chronic pain G89.29 and Pain in right knee M25.561 [facility] [address], [place] [address]- 9318 May, [facility] [id number] [address]- 5278 Apr, Tear of medial meniscus of right knee, current, unspecified tear type, subsequent encounter S83.241D and Tear of lateral meniscus of right knee, current, unspecified tear type, subsequent encounter S83.281D [facility] [address] [place] [address] 39660- 2209 Apr, Anxiety F41.9 and Mood disorder F39 [facility] [id number] [place] [address] 81800- 1444 Apr, Anxiety F41.9 [facility] [id number] [place] [address] 84705- 1241 Apr, [facility] [id number] [place] [address] 67818- 3119 Mar, [facility] [id number] [place] [address] 01685- 6758 Mar, Lupus erythematosus L93.0 and Diabetes type 2, controlled E11.9 [facility] [address] [place] [address] 98093- 0193 Mar, Mood disorder F39 [facility] [id number] [place] [address] 38617- 7311 Mar, Tear of lateral meniscus of right knee, current, unspecified tear type, initial encounter S83.281A and Osteoarthritis of right knee, unspecified osteoarthritis type M17.9 [facility] [address] [place] [address] 54936- 4183 Mar, [facility] [address] [place] [address] 60450- 8207 Feb, Mood disorder F39 [facility] [address] [place] [address] 12157- 3868 Feb, Rash R21 [facility] [address] [place] [address] 77216- 8828 Feb, [facility] [address], [place] [address]- 5460 Jan, Other chronic pain G89.29 and Muscle spasm M62.838 [facility] [id number] [place] [address] 80339- 0039 Jan, Mood disorder F39 [facility] [id number] [place] [address] 92975- 7162 Jan, Pain in right knee M25.561 ; Other chronic pain G89.29 and Muscle spasm M62.838 [facility] [id number] [place] [address] 98000- 5514 Dec, [facility] [id number] [place] [address] 62272- 4847 Dec, [facility] [id number] [place] [address] 92377- 0188 Nov, [facility] [id number] [place] [address] 65783- 9155 Nov, Mood disorder F39 [facility] [id number] [place] [address] 77551- 2358 Nov, Diabetes type 2, controlled E11.9 ; Bronchitis J40 ; Edema, unspecified type R60.9 ; Weight gain R63.5 and Right knee pain, unspecified chronicity M25.561 [facility] [address] [place] [address] 83634- 9917 Oct, Mood disorder F39 [facility] [address] [place] [address] 80926- 7394 Oct, Lupus erythematosus L93.0 and Bilateral edema of lower extremity R60.0 [facility] [id number] [place] [address] 75375- 2833 Oct, Mood disorder F39 and Anxiety [address]41.9 [facility] [id number] [place] [address] 12018- 4493 September, Mood disorder F39 ; Anxiety F41.9 and Anger reaction R45.4 [facility] [id number] [place] [address] 23764- 0464 September, Diabetes type 2, controlled E11.9 ; Edema, unspecified type R60.9 and Fatigue, unspecified type R53.83 [facility] [id number] [place] [address] 48148- 6785 Aug, Mood disorder F39 and Generalized anxiety disorder F41.1 [facility] [id number] [place] [address] 92651- 4659 Aug, Diabetes type 2, controlled E11.9 ; Sinusitis J32.9 and Mood disorder F39 [facility] [id number] [place] [address] 85780- 2035 Aug, Lupus erythematosus L93.0 [facility] [id number] [place] [address] 85152- 5382 Aug, [facility] [id number] [place] [address] 79332- 2555 Aug, [facility] [id number] [place] [address] [id number]- 8061 Jul, Diabetes type 2, controlled E11.9 [facility] [id number] [place] [address] 15824- 7453 Jul, Mood disorder F39 and Depression F32.9 [facility] [id number] [place] [address] 54160- 2721 Jul, Lupus erythematosus L93.0 and Diabetes type 2, controlled E11.9 [facility] [id number] [place] [address] [id number]- [phone] 07 Jul, 2015 Mood disorder F39 and Anxiety F41.9 [facility] [id number] [place] [address] [id number]- 0029 07 Jul, 2015 [facility] [id number] [place] [address] [id number]- [phone] Jul, [facility] [id number] [address] Jun, Mood disorder F39 and Anxiety F41.9 [facility] [id number] [place] [address] 06064- 0645 Jun, Mood disorder F39 [facility] [id number] [place] [address] 66873- 6366 Jun, [facility] [id number] [place] [address] 48908- 5203 Jun, [facility] [id number] [place] [address] [id number]- 5773 Jun, Mood disorder F39 [facility] [id number] [place] [address] 48045- 0665 Jun, [facility] [id number] [place] [address] 46264- 2087 May, [facility] [id number] [place] [address] 35094- 9413 May, [facility] [id number] [place] [address] 85692- 0589 May, [facility] [id number] [place] [address] 19352- 0020 May, [facility] [id number] [place], [place] [address] 88870- 7763 May, Anxiety F41.9 ; Dermatomyositis M33.90 and Diabetes type 2, controlled E11.9 [facility] [id number] [place] [address] 02416 -0777 May, Sinusitis J32.[address] [facility] [id number] [place] [address] 13562- 2863 May, Mood disorder F39 [facility] [address] [id number] [address] 5[address] May, Adjustment disorder with mixed anxiety and depressed mood F43.23 [facility] [id number] [place] [address] 69084- 9430 Apr, [facility] [id number] [place] [address] 07414- 5618 Apr, [facility] [id number] [place] [address] 86111- 8113 Apr, Generalized anxiety disorder F41.1 and Mood disorder F39 [facility] [id number] [place] [address] 92811- 8039 Mar, [facility] [id number] [place] [address] 19633- 5113 Mar, [facility] [id number] [place] [address] 98803- 3479 Mar, [facility] [id number] [place] [address] 18304- 0305 Mar, Mood disorder F39 [facility] [id number] [place] [address] 29432- 2921 Feb, [facility] [id number] [place] [address] 97348- 6989 Feb, Diabetes E11.[address] [facility] [id number] [place] [address] 42043- 3782 Feb, [facility] [id number] [place] [address] 75509- 6269 Feb, [facility] [id number] [place] [address] 85414- 6889 Feb, Major depression, recurrent, full remission F33.42 and KELLY ( generalized anxiety disorder) F41.1 [facility] [id number] [place] [address] 05099- 3204 Feb, [facility] [id number] [place] [address] 08649- 1828 Feb, Single major depressive episode, in partial or unspecified remission F32.5 [facility] [id number] [place] [address] 69914- 1956 Jan, Fatigue 780.79 [facility] [id number] [place] [address] 95082- 1315 Jan, [facility] [id number] [place] [address] 95672- 6491 Jan, Diabetes with other specified manifestations, type II or unspecified type, not stated as uncontrolled 250.80 [facility] [id number] [place] [address] 95101- 1012 Jan, [facility] [id number] [place] [address] 53987- 2540 Dec, Hot flashes 627.2 ; Memory loss 780.93 and Joint pain 719.40 [facility] [id number] [place] [address] 27278- 8655 Dec, Major depression, recurrent 296.30 ; Generalized anxiety disorder 300.02 ; Adjustment disorder with depressed mood 309.0 and No condition on Rio II V71.09 [address] [place] [address] 48965- 5871 Dec, [address] [place] [address] 11000- 7978 Nov, Cognitive and neurobehavioral dysfunction 294.9 ; Major depressive disorder, recurrent episode, moderate degree 296.32 and Anxiety state , unspecified 300.00 [facility] [id number] [place] [address] 86171- 9178 Nov, [facility] [id number] [place] [address] 74345- 9811 Nov, Bronchitis 490 and Diabetes with other specified manifestations, type II or unspecified type, not stated as uncontrolled 250.80 [facility] [id number] [place] [address] 05656- 5181 Nov, Major depressive disorder, recurrent episode, moderate 296.32 and Anxiety disorder, unspecified 300.00 [facility] [id number] [place] [address] 79666- 6907 Nov, Anxiety, generalized 300.02 ; Intermittent explosive disorder 312.34 ; No condition on Rio II V71.09 and No condition on axis III V71.09 [facility] [id number] [place] [address] 72752- 7302 Oct, Diabetes with other specified manifestations, type II or unspecified type, not stated as uncontrolled 250.80 ; Urinary tract infection, site not specified 599.0 and Bronchitis [address] [facility] [id number] [place] [address] 07009- 3514 Oct, Intermittent explosive disorder 312.34 ; Bipolar 1 disorder , depressed, moderate 296.52 ; Major depression, chronic 296.20 ; No condition on Rio II V71.09 and No condition on axis III V71.09 [facility] [id number] [place] [address] 54144- 2428 Oct, Major depressive disorder, recurrent episode, moderate 296.32 ; Anxiety state 300.00 ; Cognitive decline 294.9 and No condition on Rio II V71.09 [address] [place] [place] [address] 72684- 9904 Oct, [address] [id number] [place] [address] 66180- 4167 Oct, Major depressive disorder, recurrent episode, moderate 296.32 ; Anxiety disorder, unspecified 300.00 and Persistent disorder of initiating or maintaining sleep 307.42 [facility] [id number] [place] [address] 47117- 8037 September, Diabetes with other specified manifestations, type II or unspecified type, not stated as uncontrolled 250.80 ; Memory loss 780.93 and Cognitive complaints 799.59 [address] [id number] [place] [address] 71017- 5850 September, No condition on Rio II V71.09 ; Major depression, recurrent 296.30 and Persistent mood [affective] disorder, unspecified 296.90 [facility] [id number] [place] [address]- 7637 Aug, [facility] [address], [place] [address]- 4665 Aug, [facility] [id number] [place] [address] 86290- 1157 Aug, [facility] [address] 6731 Jul, [facility] [id number] [place] [address] 54874- 8367 Jul, [facility] [address] [id number], [place] [address]- 9683 Jul, [facility] [address], [place] [address]- 9717 Jul, [facility] [address], [place] [address]- 5874 Jul, [facility] [address], [place] [address]- 4922 Jun, [facility] [address], [place] [address]- 7878 Jun, [facility] [place] [facility] [address], [place] [address]- 4698 Jun, [facility] [place] [facility] [address], [place] [address]- 0313 Jun, [facility] [address] 1223 Jun, [facility] [place] [facility] [address], [place] [address]- 3674 Jun, [facility] [address] [place] [address]- 0704 Jun, 2014 [facility] [place] [facility] [address] [id number] [place] [address]- 0407 Jun, 2014 [facility] [place] [facility] [address] [id number] [place] [address]- 5898 Jun, 2014 [facility] [place] [facility] [address] [id number] [place] [address]- 7128 Jun, 2014 [facility] [place] [facility] [address] [id number] [place] [address]- 8138 Jun, 2014 [facility] [place] [facility] [address] [id number] [place] [address]- 9196 Jun, 2014 [facility] [place] [facility] [address] [facility] [id number] [place] [address]- 5599 Jun, 2014 [facility] [place] [facility] [address] [facility] [id number] [place] [address]- 4231 May, [facility] [place] [facility] [address] [facility] [id number] [place] [address]- 0143 May, [facility] [place] [facility] [address] [facility] [id number] [place] [address]- 3436 Apr, [facility] [place] [facility] [address] [facility] [id number] [place] [address]- 0141 Apr, [facility] [place] [facility] [address] [id number] [place] [address]- 9019 Apr, [facility] [place] [facility] [address] [id number] [place] [address]- 8162 Apr, [facility] [place] [facility] [address] [id number] [place] [address]- 1613 Apr, [facility] [place] [facility] [address] [id number] [place] [address]- 7577 Apr, [facility] [place] [facility] [address] [facility] [id number] [place] [address]- 9194 Apr, [facility] [place] [facility] [address] [id number] [place] [address]- 8397 Apr, [facility] [place] [facility] [address] [id number] [place] 3526 Apr, [facility] [place] [facility] [address] [id number] [place] [address]- 7226 Apr, [facility] [place] [facility] [address] [id number] [place] [address]- 9164 Apr, [facility] [place] [facility] [address] [id number] [place] [address]- 8499 Apr, [facility] [place] [facility] [address] [id number] [place] [address]- 7178 Apr, [facility] [place] [facility] [address] [id number] [place] [address]- 7690 Apr, [facility] [place] [facility] [address] [id number] [place] [address]- 8762 Apr, [facility] [place] [facility] [address] [id number] [place] [address]- 6856 Apr, [facility] [place] [facility] [address] [id number] [place] [address]- 3752 Apr, [facility] [place] [facility] [address] [id number] [place] [address]- 0519 Apr, [facility] [place] [facility] [address] [id number], [place] [address]- 8584 Apr, [facility] [place] [facility] [address] [id number] [place] [address]- 3718 Apr, [facility] [place] [facility] [address] [id number] [place] [address]- 1391 Mar, [facility] [place] [facility] [address] [id number] [place] [address]- 5027 Mar, [facility] [place] [facility] [address] [id number] [place] [address]- 6585 Mar, [facility] [place] [facility] [address] [id number] [place] [address]- 6079 Mar, [facility] [place] [facility] [address] [id number] [place] [address]- 5101 Mar, [facility] [place] [facility] [address] [id number] [place] [address]- 1143 Mar, [facility] [place] [facility] [address] [id number] [place] [address]- 9805 Mar, [facility] [place] [facility] [address] [id number] [place] [address]- 1538 Mar, [facility] [place] [facility] [address] [id number] [place] [address]- 2372 Mar, [facility] [place] [facility] [address] [id number] [place] [address]- 1736 Mar, [facility] [place] [facility] [address] [id number] [place] [address]- 8642 Mar, [facility] [place] [facility] [address] [facility] [id number] [place] [address]- 0834 Mar, [facility] [place] [facility] [address] [facility] [id number] [place] [address]- 9032 Mar, [facility] [place] [facility] [address] [id number] [place] [address]- 7194 Feb, [facility] [place] [facility] [address] [id number] [place] [address]- 2970 Feb, [facility] [place] [facility] [address] [id number] [place] [address]- 2209 30 Feb, 2014 [facility] [place] [facility] [address] [id number] [place] [address]- 5712 Feb, [facility] [place] [facility] [address] [id number] [place] [address]- 0462 Feb, [facility] [place] [facility] [address] [id number] [place] [address]- 1581 Feb, [facility] [place] [facility] [address] [id number] [place] [address]- 9200 Feb, [facility] [place] [facility] [address] [id number] [place] [address]- 4801 Feb, [facility] [place] [facility] [address] [id number] [place] [address]- 3208 Feb, [facility] [place] [facility] [address] [id number] [place] [address]- 9742 Feb, [facility] [place] [facility] [address] [id number] [place] [address]- 7954 Feb, [facility] [place] [facility] [address] [id number] [place] [address]- 6453 Feb, [facility] [place] [facility] [address] [id number] [place] [address]- 6273 Feb, [facility] [place] [facility] [address] [id number] [place] [address]- 1928 Feb, [facility] [place] [facility] [address] [id number], [place] [address]- 9381 07 Feb, 2014 [facility] [place] [facility] [address] [id number], [place] [address]- 1525 10 Jan, 2013 [facility] [place] [facility] [address] [id number], [place] [address]- 0721 08 Sep, 2013 [facility] [place] [facility] [address] [id number], [place] [address]- 4891 08 Sep, 2013 [facility] [place] [facility] [address] [id number], [place] [address]- 6233 08 Sep, 2013 [facility] [place] [facility] [address] [id number], [place] [address]- 9900 08 Sep, 2013 [facility] [place] [facility] [address] [id number], [place] [address]- 6534 Dec, [facility] [place] [facility] [address] [id number] [place] [address]- 4174 Dec, [facility] [place] [facility] [address] [id number] [place] [address]- 1698 Dec, [facility] [place] [facility] [address] [id number] [place] [address]- 7206 Dec, [facility] [place] [facility] [address] [id number] [place] [address]- 8102 Nov, [facility] [place] [facility] [address] [id number] [place] [address]- 9159 Nov, [facility] [place] [facility] [address] [id number] [place] [address]- 8584 Nov, [facility] [place] [facility] [address] [id number] [place] [address]- 9923 Nov, [facility] [place] [facility] [address] [id number] [place] [address]- 9453 Nov, [facility] [place] [facility] [address] [id number] [place] [address]- 6269 Nov, [facility] [place] [facility] [address] [id number] [place] [address]- 7409 Nov, [facility] [place] [facility] [address] [id number] [place] [address]- 2410 Nov, [facility] [place] [facility] [address] [id number] [place] [address]- 2467 Nov, [facility] [place] [facility] [address] [id number] [place] [address]- 4083 Nov, [facility] [place] [facility] [address] [id number] [place] [address]- 8039 Oct, [facility] [place] [facility] [address] [id number] [place] [address]- 8251 Oct, [facility] [place] [facility] [address] [id number] [place] [address]- 8856 September, [facility] [place] [facility] [address] [id number] [place] [address]- 0980 September, [facility] [place] [facility] [address] [id number] [place] [address] 2546 September, [facility] [place] [facility] [address] [id number] [place] [address]- 8986 September, [facility] [place] [facility] [address] [id number] [place] [address]- 6909 Aug, [facility] [place] [facility] [address] [id number] [place] [address]- 6990 Aug, [facility] [place] [facility] [address] [id number] [place] [address]- 8424 Aug, [facility] [place] [facility] [address] [id number] [place] [address]- 3029 24 Jul, 2013 [facility] [place] [facility] [address] [id number] [place] [address]- 3102 24 Jul, 2013 [facility] [place] [facility] [address] [id number] [place] [address]- 2699 Jul, [facility] [place] [facility] [address] [id number] [place] [address]- 2221 Jul, [facility] [place] [facility] [address] [id number] [place] [address]- 4466 May, [facility] [place] [facility] [address] [id number] [place] [address]- 3578 May, [facility] [place] [facility] [address] [id number] [place] [address]- 9776 May, [facility] [place] [facility] [address] [id number] [place] [address]- 1566 15 Mar, 2013 [facility] [place] [facility] [address] [id number] [place] [address]- 8340 15 Mar, 2013 [facility] [place] [facility] [address] [id number] [place] [address]- 0199 Mar, [facility] [place] [facility] [address] [id number] [place] [address]- 7953 Mar, [facility] [place] [facility] [address] [id number] [place] [address]- 7810 16 Feb, 2013 [facility] [place] [facility] [address] [id number] [place] [address]- 8748 Feb, [facility] [place] [facility] [address] [id number] [place] [address]- 5439 Feb, [facility] [place] [facility] [address] [id number] [place] [address]- 0376 16 Jan, 2013 [facility] [place] [facility] [address] [id number] [place] [address]- 5448 Jan, [facility] [place] [facility] [address] [id number] [place] [address]- 3005 Jan, [facility] [place] [facility] [address] [id number] [place] [address]- 0631 Dec, [facility] [place] [facility] [address] [id number] [place] [address]- 7296 Dec, [facility] [place] [facility] [address] [id number], [place] [address]- 7050 Dec, [facility] [place] [facility] [address] [id number], [place] [address]- 9418 Dec, [facility] [place] [facility] [address] [id number] [place] [address]- 8450 Nov, [facility] [place] [facility] [address] [id number], [place] [address]- 7529 Oct, [facility] [place] [facility] [address] [id number] [place] [address]- 2691 Oct, [facility] [place] [facility] [address] [id number] [place] [address]- 6221 30 Sep, 2012 [facility] [address] [id number] [place] [address]- 2522 September, [facility] [address] [id number] [place] [address]- 7700 September, [facility] [address] [id number] [place] [address]- 1527 Aug, [facility] [address] [id number] [place] [address]- 0837 Aug, [facility] [address] [id number] [place] [address]- 5371 Aug, [facility] [address] [id number] [place] [address]- 5203 Aug, [facility] [address] [id number] [place] [address]- 5170 26 Jul, 2012 [facility] [address] [id number] [place] [address]- 7207 25 Jul, 2012 [facility] [address] [id number] [place] [address]- 6567 21 Jul, 2012 [facility] [address] [id number] [place] [address]- 8140 15 Jul, 2012 [facility] [address] [id number] [place] [address]- 6840 14 Jul, 2012 [facility] [address] [id number] [place] [address]- 4500 13 Jul, 2012 [facility] [place] [facility] [address] [id number] [place] [address]- 5047 Jul, [facility] [place] [facility] [address] [id number] [place] 2835 Jun, [facility] [address] [id number] [place] [address] Jun, [facility] [place] [facility] [address] [id number] [place] [address] Jun, [facility] [place] [facility] [address] [id number] [place] [address] Jun, [facility] [place] [facility] [address] [id number] [place] [address] May, [facility] [place] [facility] [address] [id number] [place] [address] May, [facility] [place] [facility] [address] [id number] [place] [address] May, [facility] [place] [facility] [address] [id number] [place] [address] May, [facility] [place] [facility] [address] [id number] [place] [address] May, [facility] [place] [facility] [address] [id number] [place] [address] Apr, [facility] [place] [facility] [address] [id number] [place] [address] Apr, [facility] [place] [facility] [address] [id number], [place] [address] Mar, [facility] [place] [facility] [address] [id number] [place] [address] Mar, [facility] [place] [facility] [address] [id number], [place] [address] Mar, [facility] [place] [facility] [address] [id number] [place] [address] Mar, [facility] [place] [facility] [address] [id number] [place] [address]- [address] Mar, [facility] [place] [facility] [address] [id number] [address] Mar, [facility] [place] [facility] [address] [id number], [place] [address]- [address] Mar, [facility] [place] [facility] [address] [id number] [place] [address]- [address] Mar, [facility] [place] [facility] [address] [id number] [place] [address]- [address] Mar, [facility] [place] [facility] [address] [id number] [place] [address] Mar, [facility] [place] [facility] [address] [id number] [place] [address] Feb, [facility] [place] [facility] [address] [id number] [place] [address] Feb, [facility] [place] [facility] [address] [id number] [place] [address] Feb, [facility] [place] [facility] [address] [facility] [id number] [place] [address] Feb, [facility] [place] [facility] [address] [id number] [place] [address] Feb, [facility] [place] [facility] [address] [facility] [id number] [place] [address] Feb, [facility] [place] [facility] [address] [facility] [id number] [place] [address] Feb, [facility] [place] [facility] [address] [id number] [place] [address] Jan, [facility] [place] [facility] [address] [id number] [place] [address] 69[address] Jan, [facility] [place] [facility] [address] [id number] [place] [address] Dec, [facility] [place] [facility] [address] [id number] [place] [address] Dec, [facility] [place] [facility] [address] [facility] [id number] [place] [address]- [address] Dec, [facility] [place] [facility] [address] [id number] [place] [address] 17 Dec, 2011 [facility] [place] [facility] [address] [id number] [place] [address] Dec, [facility] [place] [facility] [address] [id number] [place] [address] Dec, [facility] [place] [facility] [address] [id number] [place] [address]653 Nov, [facility] [place] [facility] [address] [id number] [place] [address]- [address] Nov, [facility] [place] [facility] [address] [id number] [place] [address]- [address] Nov, [facility] [place] [facility] [address] [id number] [place] [address] Nov, [facility] [place] [facility] [address] [id number] [place] [address] September, [facility] [place] [facility] [address] [id number] [place] [address]- [address] September, [facility] [place] [facility] [address] [id number] [place] [address] September, [facility] [place] [facility] [address] [id number] [place] [address] Jul, [facility] [place] [facility] [address] [id number] [place] [address] 29 Jun, 2011 [facility] [place] [facility] [address] [id number] [place] [address] Jun, [facility] [place] [facility] [address] [id number] [place] [address]- [address] Jun, [facility] [place] [facility] [address] [id number] [place] [address] 14 Apr, 2011 [facility] [place] [facility] [address] [id number] [place] [address] Mar, [facility] [address] [facility] [id number] [place] [address] Mar, [facility] [address] [id number], [place] [address] Feb, [facility] [address] [facility] [id number], [place] [address] Feb, [facility] [address] [id number], [place] [address]- [address] Feb, [facility] [facility] [address] [facility] [id number], [place] [address] Jul, [facility] [address] [id number], [place] [address] Feb, IMMUNIZATIONS No Known Immunizations SOCIAL HISTORY Never Assessed REASON FOR VISIT Refill PLAN OF CARE VITAL SIGNS MEDICATIONS Medication Instructions Dosage Frequency Start Date End Date Duration Status Glucometer Diabetic monitor, test strips, lancets, alcohol pad as directed Feb, Active RESULTS No Results PROCEDURES No Known [...]
--- OUTSIDE RECORDS SUMMARY | 2018-05-09 22:36 | XMS REPORT ---
Author Author MACY TAMAYO Organization [facility] Address [address] [place] [address] Care Team Providers Care Filleter Name Role Phone MACY TAMAYO Unavailable PROBLEMS Type Condition ICD9-CM Code RPT33-BO Code Onset Dates Condition Status SNOMED Code Problem Tachycardia with heart rate 121-140 beats per minute R00.0 Active 3011658 Problem Enlarged thyroid gland E04.9 Active 9840922 Problem Body mass index (BMI) of 45.0-49.9 in adult Z68.42 Active 069779682 Problem Other specified mental disorders due to known physiological condition F06.8 Active 75893315 Problem Mood disorder F39 Active 90272451 Problem Frequent falls R29.6 Active 426843184 Problem Allergic rhinitis due to pollen J30.1 Active 06716606 Problem Menopause Z78.0 Active 793498898 Problem Lumbago with sciatica, right side M54.41 Active 437670306 Problem Dermatomyositis M33.90 Active 799311935 Problem Facial droop R29.810 Active 56716213 Problem Gait disturbance R26.9 Active 55598186 Problem Anxiety F41.9 Active 96851556 Problem Other chronic pain G89.29 Active 14220655 Problem Diabetes type 2, controlled E11.9 Active 16760058 Problem Osteoarthritis of right knee, unspecified osteoarthritis type M17.9 Active 374738886 Problem Plantar wart of both feet B07.0 Active [id number] Problem Lumbago with sciatica, left side M54.42 Active 481573837 Problem Arthritis M19.90 Active 2808314 Problem Controlled type 2 diabetes mellitus without complication, without long -term current use of insulin E11.9 Active 893127231 Problem Plantar warts B07.0 Active 28561923 Problem Morbid (severe) obesity due to excess calories E66.01 Active 435902272 ALLERGIES No Information ENCOUNTERS Encounter Location Date Diagnosis [facility] [address] [facility] [id number] [place] [address] 52400- 8983 Mar, [facility] [address] [place] [id number] [place] [address] 85359- 3088 Mar, [facility] [address] [place] [place] [id number] [place] [address] 17430- 4634 Feb, [facility] [address] [place] [id number] [place] [address] 76744- 5540 Feb, [facility] [address] 811350- 1461 Feb, BMI 40.0-44.9, adult Z68.41 [facility] [address] 60827- 5077 Feb, [facility] [address] [place] [id number] [place] [address] 49361- 4145 Feb, [facility] [address] 00761- 0139 Feb, BMI 45.0-49.9, adult Z68.42 ; Gait disturbance R26.9 ; Other specified mental disorders due to known physiological condition F06.8 ; Weakness R53.1 ; Frequent falls R29.6 and Self-care deficit for bathing R46.0 [facility] [address] [place] [id number] [place] [address] 15635- 8851 Feb, [facility] [address] [id number] [place] [address] 32258- 8077 Jan, Mood disorder F39 [facility] [address] [place] [id number] [place] [address] 86270- 3868 27 Jan, 2018 BMI 45.0-49.9, adult Z68.42 and 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 [facility] [address] [place] [id number] [place] [address] 07795- 4685 Jan, [facility] [address] [place] [id number] [place] [address] 40031- 9733 Jan, [facility] [address] [place] [id number] [place] [address] 90682- 0733 Jan, [facility] [address] [id number] [place] [address] 94269- 2390 Jan, 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 [facility] [address] [place] [id number] [place] [address] 86238- 3841 Jan, [facility] [address] [place] [id number] [place] [address] 32038- 6725 Jan, [facility] [address] [place] [id number] [place] [address] 55549- 4495 Jan, [facility] [address] [place] [id number] [place] [address] 90916- 1914 19 Jan, 2018 Allergic reaction to drug, initial encounter T78.40XA [facility] [address] 00252- 6295 17 Jan, 2018 BMI 45.0-49.9, adult Z68.42 and Facial droop R29.810 [place] [address] 75538- 1334 14 Jan, 2018 Mood disorder F39 [place] [address] [place] [id number] [place] [address] 61974- 3341 11 Jan, 2018 Dermatomyositis M33.90 and BMI 40.0-44.9, adult Z68.41 [facility] [address] [place] [id number] [place] [address] 51518- 8248 10 Jan, 2018 [facility] [address] [place] [id number] [place] [address] 75507- 3176 05 Jan, 2018 [place] [address] 29750- 4028 04 Jan, 2018 Irritation of left eye H57.8 and BMI 40.0-44.9, adult Z68.41 [facility] [address] 28251- 0918 Dec, Diabetes type 2, controlled E11.9 [facility] [address] [place] [id number] [place] [address] 06918- 0636 Dec, Acute right ankle pain M25.571 [facility] [id number] [place] [address] 58712- 9656 Dec, Other chronic pain G89.29 ; Diabetes type 2, controlled E11.9 ; Gait disturbance R26.9 ; Weakness R53.1 and Muscle spasm M62.838 [facility] [address] [place] [id number] [place] [address] 70413- 2910 Dec, Acute non-recurrent maxillary sinusitis J01.00 [facility] [address] [place] [id number] [place] [address] 55463- 9162 Dec, [facility] [address] 88151- 4312 Dec, [facility] [address] 48935- 2842 Dec, Acute non-recurrent maxillary sinusitis J01.00 [facility] [address] 17199- 1975 Dec, Lumbago with sciatica, right side M54.41 and Lupus erythematosus L93.0 [facility] [address] [place] [id number] [place] [address] 34905- 6784 Dec, Mood disorder F39 [facility] [id number] [place] [address] 45836- 8880 Dec, Mood disorder F39 [facility] [address] [place] [id number] [place] [address] 15958- 8098 Dec, [facility] [address] [place] [place] [id number] [place] [address] 80060- 8416 Dec, Acute right ankle pain M25.571 [facility] [address] 34765- 7428 Nov, Lumbar radiculopathy M54.16 [facility] [id number] [place] [address] 27715- 4177 Nov, [facility] [id number] [place] [address] 95324- 4347 Nov, Mood disorder F39 [facility] [id number] [place] [address] 15682- 4914 Nov, Lumbago with sciatica, right side M54.41 and Other chronic pain G89.29 [facility] [address] [id number] [place] [address] 75273- 1329 Nov, Acute right ankle pain M25.571 [facility] [id number] [place] [address] 59492- 1605 Nov, [facility] [id number] [place] [address] 91261- 8635 Oct, [facility] [id number] [place] [address] 07466- 3051 Oct, Plantar wart of both feet B07.0 [facility] [id number] [place] [address] 08824- 6926 Oct, [facility] [id number] [place] [address] 96928- 5708 Oct, Acute right ankle pain M25.571 and Plantar wart of both feet B07.0 [facility] [id number] [place] [address] 36564- 6036 September, Other chronic pain G89.29 [facility] [id number] [place] [address] 63579- 6816 September, Other chronic pain G89.29 [facility] [id number] [place] [address] 08244- 0699 September, Other chronic pain G89.29 [facility] [address] 63055- 0267 16 Aug, 2017 Mood disorder F39 [place] [address] 01459- 5427 16 Aug, 2017 Other chronic pain G89.29 ; Controlled type 2 diabetes mellitus without complication, without long-term current use of insulin E11.9 ; Low back pain M54.5 and Tinea corporis B35.4 [place] [address] 42738- 3256 Aug, Mood disorder F39 and Anxiety F41.9 [place] [address] 50953- 9248 Aug, Mood disorder F39 and Anxiety F41.9 [place] [address] 47240- 2044 Jul, [facility] [place] [address] 16770 -2872 Jul, Scabies B86 and BMI 45.0-49.9, adult Z68.42 [place] [address] 97101- 7883 Jul, [place] [address] 82757- 3806 Jul, Mood disorder F39 and Anxiety F41.9 [place] [address] 38577- 0159 Jul, [facility] [address] [place] [id number] [place] [address] 88758 -9578 27 Jun, 2017 Bronchitis J40 ; Dark urine R82.99 and BMI 45.0-49.9, adult Z68.42 [place] [address] 91314- 9676 14 Jun, 2017 Acute pain of right shoulder M25.511 and Acute pain of right knee M25.561 [place] [address] [place] [address]- 8130 May, BMI 40.0-44.9, adult Z68.41 ; Controlled type 2 diabetes mellitus without complication, without long-term current use of insulin E11.9 ; Muscle cramping R25.2 ; Hot flashes R23.2 ; Mood disorder F39 ; Anxiety F41.9 and Morbid (severe) obesity due to excess calories E66.[address] 29669- 9815 May, BMI 40.0-44.9, adult Z68.41 ; Controlled type 2 diabetes mellitus without complication, without long-term current use of insulin E11.9 ; Muscle cramping R25.2 and Hot flashes R23.[address] 67631- 9692 May, Tachycardia with heart rate 121-140 beats per minute R00.0 ; Morbid (severe) obesity due to excess calories E66.01 ; Diabetes type 2, controlled E11.9 and Enlarged thyroid gland E04.[address] 27946- 8243 25 May, 2017 Encounter for well woman [...] Dysuria R30.0 and Screening breast examination Z12.[address] 30628- 6026 Apr, Mood disorder F39 ; Other chronic pain G89.29 and Anxiety F41.9 [place] [id number] [place] [address] 10619- 2092 Apr, Lumbago with sciatica, left side M54.42 and Other chronic pain G89.29 [facility] [id number] [place] [address] 17316- 5750 Apr, Lupus erythematosus L93.0 [facility] [address] [place] [id number] [place] [address] 99025- 6276 Mar, Plantar wart of both feet B07.0 [facility] [id number] [place] [address] 14200- 1756 Mar, Lupus erythematosus L93.0 and Sinus drainage J34.89 [facility] [id number] [place] [address] 85481- 7396 Mar, Mood disorder F39 ; Other chronic pain G89.29 and Anxiety F41.9 [facility] [address] [place] [id number] [place] [address] 36367- 4826 Mar, Mood disorder F39 ; Arthritis M19.90 and Plantar warts B07.0 [facility] [address] [place] [id number] [place] [address] 64660- 4923 Feb, Lupus erythematosus L93.0 [facility] [address] [id number] [place] [address] 28769- 1141 Feb, Other chronic pain G89.29 [facility] [address] [id number] [place] [address] 70373- 2984 Feb, Mood disorder F39 and Anxiety F41.9 [facility] [address] [place] [id number] [place] [address] 64987- 3967 Jan, [facility] [address] [place] [id number] [place] [address] 36919- 0507 Jan, Mood disorder F39 [facility] [address] [place] [id number] [place] [address] 33686- 3996 Dec, Nail, ingrown L60.0 [facility] [address] [place] [id number] [place] [address] 64627- 4638 Dec, Nail, ingrown L60.0 [facility] [address] [address]- 4967 Nov, Mood disorder F39 and Anxiety F41.9 [facility] [address] [place] [id number] [place] [address] 11943- 3003 Nov, Sinus drainage J34.89 ; Hot flashes R23.2 ; Anxiety F41.9 and Diabetes type 2, controlled E11.9 [facility] [address] [place] [id number] [place] [address] 59341- 0570 Nov, Nail, ingrown L60.0 [facility] [address] [id number] [place] [address] 05674- 0681 Oct, Anxiety F41.9 and Mood disorder F39 [facility] [address] [place] [id number] [place] [address] 08915- 4287 Oct, Nail, ingrown L60.0 and Anxiety F41.9 [facility] [address] [place] [id number] [place] [address] 05586- 2226 Oct, Lupus erythematosus L93.0 [facility] [address] [id number] [place] [address] 03358- 7685 September, [facility] [address] [place] [id number] [place] [address] 43466- 1410 September, [facility] [address] [id number] [place] [address] 44787- 3854 September, Lupus erythematosus L93.0 [facility] [address] [id number] [place] [address] 87802- 6326 Aug, [facility] [address] [id number] [place] [address] 90087- 9768 Aug, Mood disorder F39 and Anxiety F41.9 [facility] [id number] [place] [address] 61187- 1128 Aug, Lupus erythematosus L93.0 ; Diabetes type 2, controlled E11.9 and Localized edema R60.0 [facility] [address] [address]- 6745 05 Aug, 2016 [facility] [address] [place] [id number] [place] [address] 25073- 8446 Jul, Anxiety F41.9 and Mood disorder F39 [place] [address] [place] [id number] [place] [address] 76713- 6536 Jul, Diabetes type 2, controlled E11.9 [facility] [address] [place] [id number] [place] [address] 45834- 3014 Jun, Anxiety F41.9 [place] [address] [place] [id number] [place] [address] 66135- 4827 May, [place] [address] [place] [id number] [place] [address] 64142- 3440 May, [place] [address] [place] [id number] [place] [address] 86490- 4534 May, Nausea R11.0 ; Other chronic pain G89.29 and Pain in right knee M25.561 [place] [address] [place] [id number] [place] [address] 04980- 8782 May, [place] [address] [place] [id number] [place] [address] 81159- 5005 Apr, Tear of medial meniscus of right knee, current, unspecified tear type, subsequent encounter S83.241D and Tear of lateral meniscus of right knee, current, unspecified tear type, subsequent encounter S83.281D [place] [id number] [place] [address] 26100- 8498 Apr, Anxiety F41.9 and Mood disorder F39 [place] [address] [place] [id number] [place] [address] 15218- 3666 Apr, Anxiety F41.9 [facility] [address] [place] [id number] [place] [address] 11335- 2981 Apr, [facility] [address] [place] [id number] [place] [address] 37926- 2792 17 Mar, 2016 [facility] [address] [id number] [place] [address] 35140- 1308 Mar, Lupus erythematosus L93.0 and Diabetes type 2, controlled E11.9 [facility] [address] [place] [id number] [place] [address] 69946- 7456 Mar, Mood disorder F39 [facility] [address] 74502- 3986 Mar, Tear of lateral meniscus of right knee, current, unspecified tear type, initial encounter S83.281A and Osteoarthritis of right knee, unspecified osteoarthritis type M17.9 [facility] [address] [place] [id number] [place] [address] 55083- 8405 Mar, [facility] [address] [place] [place] [id number] [place] [address] 74222- 9281 Feb, Mood disorder F39 [facility] [address] [place] [id number] [place] [address] 65363- 0942 Feb, Rash R21 [facility] [address] [place] [id number] [place] [address] 55906- 0241 Feb, [facility] [address] [place] [id number] [place] [address] 68647- 5067 Jan, Other chronic pain G89.29 and Muscle spasm M62.838 [facility] [address] [id number] [place] [address] 33828- 1112 Jan, Mood disorder F39 [facility] [address] [place] [id number] [place] [address] 26930- 0168 Jan, Pain in right knee M25.561 ; Other chronic pain G89.29 and Muscle spasm M62.838 [facility] [address] [place] [id number] [place] [address] 61724- 5911 Dec, [facility] [address] [place] [id number] [place] [address] 89972- 4917 Dec, [place] [id number] [place] [address] 78107- 9676 Nov, [place] [address] [place] [id number] [place] [address] 30278- 2965 Nov, Mood disorder F39 [place] [address] [place] [id number] [place] [address] 35048- 7956 Nov, Diabetes type 2, controlled E11.9 ; Bronchitis J40 ; Edema, unspecified type R60.9 ; Weight gain R63.5 and Right knee pain, unspecified chronicity M25.561 [place] [address] [place] [id number] [place] [address] 91639- 3546 Oct, Mood disorder F39 [place] [address] [place] [id number] [place] [address] 80636- 9026 Oct, Lupus erythematosus L93.0 and Bilateral edema of lower extremity R60.0 [place] [address] [place] [id number] [place] [address] 59683- 6555 Oct, Mood disorder F39 and Anxiety F41.9 [place] [address] [place] [id number] [place] [address] 20539- 0613 September, Mood disorder F39 ; Anxiety F41.9 and Anger reaction R45.4 [place] [address] [place] [id number] [place] [address] 16994- 3583 September, Diabetes type 2, controlled E11.9 ; Edema, unspecified type R60.9 and Fatigue, unspecified type R53.83 [place] [id number] [place] [address] 75031- 9587 Aug, Mood disorder F39 and Generalized anxiety disorder F41.1 [place] [address] [place] [id number] [place] [address] 63786- 2398 Aug, Diabetes type 2, controlled E11.9 ; Sinusitis J32.9 and Mood disorder F39 [place] [address] [place] [id number] [place] [address] 08583- 8884 15 Aug, 2015 Lupus erythematosus L93.0 [facility] [address], [place] [address]- 6646 14 Aug, 2015 [facility] [address] [place] [id number] [place] [address] 98586- 8656 07 Aug, 2015 [facility] [id number] [place] [address] 87607- 8918 Jul, Diabetes type 2, controlled E11.9 [facility] [id number] [place] [address] 27755- 6006 Jul, Mood disorder F39 and Depression F32.9 [facility] [address] [place] [id number] [place] [address] 24119- 0789 Jul, Lupus erythematosus L93.0 and Diabetes type 2, controlled E11.9 [facility] [address] [place] [id number] [place] [address] 35566- 5685 Jul, Mood disorder F39 and Anxiety F41.9 [facility] [id number] [place] [address] 07804- 1424 Jul, [facility] [address] [place] [id number] [place] [address] 41142- 4375 Jul, [facility] [id number] [place] [address] 27159- 5540 Jun, Mood disorder F39 and Anxiety F41.9 [facility] [id number] [place] [address] 57809- 1443 Jun, Mood disorder F39 [facility] [id number] [place] [address] 14133- 8546 18 Jun, 2015 [facility] [address] [place] [id number] [place] [address] 18909- 0711 15 Jun, 2015 [facility] [id number] [place] [address] 66764- 3049 08 Jun, 2015 Mood disorder F39 [facility] [address] [place] [address]- 2359 Jun, [facility] [address] [place] [id number] [place] [address] 20542- 1134 May, [facility] [id number] [place] [address] 26241- 8648 May, [facility] [address] [place] [id number] [place] [address] 49363- 2892 May, [facility] [id number] [place] [address] 21959- 6382 May, [facility] [address] [place] [id number] [place] [address] 50712- 0688 May, Anxiety F41.9 ; Dermatomyositis M33.90 and Diabetes type 2, controlled E11.9 [facility] [id number] [place] [address] [phone] -[phone] May, Sinusitis J32.9 and Cough R05 [facility] [id number] [place] [address] 47822- [phone] May, Mood disorder F39 [facility] [id number] [place] [address] [phone] May, Adjustment disorder with mixed anxiety and depressed mood F43.23 [facility] [id number] [place] [address] [phone] Apr, [facility] [id number] [place] [address] [phone] Apr, [facility] [id number] [place] [address] [phone]- [phone] Apr, Generalized anxiety disorder F41.1 and Mood disorder F39 [facility] [id number] [place] [address] [phone] Mar, [facility] [id number] [place] [address] [phone] Mar, [facility] [id number] [place] [address] [phone] Mar, [facility] [id number] [place] [address] [phone] Mar, Mood disorder F39 [facility] [id number] [place] [address] [phone]- [phone] Feb, [facility] [address] [phone]- [phone] Feb, Diabetes E11.9 and Bronchitis J40 [facility] [address] [phone]- [phone] Feb, [facility] [id number] [place] [address] [phone]- [phone] Feb, [facility] [id number] [place] [address] [phone]- [phone] Feb, Major depression, recurrent, full remission F33.42 and KELLY ( generalized anxiety disorder) F41.1 [facility] [id number] [place] [address] [phone]- [phone] Feb, [facility] [address] [id number] [place] [address] 92488- 9089 Feb, Single major depressive episode, in partial or unspecified remission F32.5 [facility] [id number] [place] [address] 43056- 9591 Jan, Fatigue 780.79 [facility] [id number] [place] [address] 83226- 6182 Jan, [facility] [id number] [place] [address] 43029- 3436 Jan, Diabetes with other specified manifestations, type II or unspecified type, not stated as uncontrolled 250.80 [facility] [id number] [place] [address] 26241- 7615 Jan, [id number] [place] [address] 93282- 9834 Dec, Hot flashes 627.2 ; Memory loss 780.93 and Joint pain 719.40 [place] [id number] [place] [address] 32916- 5884 Dec, Major depression, recurrent 296.30 ; Generalized anxiety disorder 300.02 ; Adjustment disorder with depressed mood 309.0 and No condition on [place] II V71.09 [place] [id number] [place] [address] 32528- 9264 Dec, [address] 48462- 6343 Nov, Cognitive and neurobehavioral dysfunction 294.9 ; Major depressive disorder, recurrent episode, moderate degree 296.32 and Anxiety state , unspecified 300.00 [place] [id number] [place] [address] 97483- 9609 Nov, [place] [id number] [place] [address] 49496- 3006 Nov, Bronchitis 490 and Diabetes with other specified manifestations, type II or unspecified type, not stated as uncontrolled 250.80 [place] [id number] [place] [address] 15987- 8191 Nov, Major depressive disorder, recurrent episode, moderate 296.32 and Anxiety disorder, unspecified 300.00 [place] [id number] [place] [address] 70950- 7544 Nov, Anxiety, generalized 300.02 ; Intermittent explosive disorder 312.34 ; No condition on [place] II V71.09 and No condition on axis III V71.09 [place] [id number] [place] [address] 67815- 2202 Oct, Diabetes with other specified manifestations, type II or unspecified type, not stated as uncontrolled 250.80 ; Urinary tract infection, site not specified 599.0 and Bronchitis 490 [place] [id number] [place] [address] 71738- 2040 17 Oct, 2014 Intermittent explosive disorder 312.34 ; Bipolar 1 disorder , depressed, moderate 296.52 ; Major depression, chronic 296.20 ; No condition on [place] II V71.09 and No condition on axis III V71.09 [address] 7946 15 Oct, 2014 Major depressive disorder, recurrent episode, moderate 296.32 ; Anxiety state 300.00 ; Cognitive decline 294.9 and No condition on [place] II V71.09 [id number] [place] [address] 39354- 3283 Oct, [place] [id number] [place] [address] [id number]- 4603 Oct, Major depressive disorder, recurrent episode, moderate 296.32 ; Anxiety disorder, unspecified 300.00 and Persistent disorder of initiating or maintaining sleep 307.42 [place] [id number] [place] [address] 97333- 9322 September, Diabetes with other specified manifestations, type II or unspecified type, not stated as uncontrolled 250.80 ; Memory loss 780.93 and Cognitive complaints 799.59 [place] [id number] [place] [address] 92983- 3673 September, No condition on [place] II V71.09 ; Major depression, recurrent 296.30 and Persistent mood [affective] disorder, unspecified 296.90 [id number] [place] [address] [id number] 5670 Aug, [place] [id number] [place] [address] 98144- 5682 Aug, [place] [id number] [place] [address] 00135- 7729 Aug, [address] 4000 Jul, [place] [id number] [place] [address] 53365- 1256 Jul, 2014 [facility] [place] [facility] [address] [id number] [place] [address]- 8699 Jul, 2014 [facility] [place] [facility] [address] [id number] [place] [address]- 6899 Jul, 2014 [facility] [place] [facility] [address] [facility] [id number] [place] [address]- 7681 Jul, 2014 [facility] [place] [facility] [address] [id number] [place] [address]- 8238 Jun, 2014 [facility] [place] [facility] [address] [id number] [place] [address]- 9938 Jun, 2014 [facility] [place] [facility] [address] [id number] [place] [address]- 8385 Jun, 2014 [facility] [place] [facility] [address] [facility] [id number] [place] [address]- 3495 Jun, 2014 [facility] [place] [facility] [address] [facility] [id number] [place] [address]- 3245 Jun, 2014 [facility] [place] [facility] [address] [facility] [id number] [place] [address]- 7416 Jun, 2014 [facility] [place] [facility] [address] [facility] [id number] [place] [address]- 3238 Jun, 2014 [facility] [place] [facility] [address] [facility] [id number] [place] [address]- 1696 Jun, 2014 [facility] [place] [facility] [address] [facility] [id number] [place] [address]- 2676 Jun, 2014 [facility] [place] [facility] [address] [id number] [place] [address]- 6965 Jun, 2014 [facility] [place] [facility] [address] [facility] [id number] [place] [address]- 7814 Jun, 2014 [facility] [place] [facility] [address] [facility] [id number] [place] [address]- 1135 02 Fe2014 [facility] [place] [facility] [address] [id number] [place] [address]- 5051 Jun, [facility] [place] [facility] [address] [id number] [place] [address]- 6739 May, [facility] [place] [facility] [address] [id number] [place] [address]- 9125 May, [facility] [place] [facility] [address] [id number] [place] [address]- 2636 Apr, [facility] [place] [facility] [address] [id number] [place] [address]- 2359 Apr, [facility] [place] [facility] [address] [id number] [place] [address]- 8923 Apr, [facility] [place] [facility] [address] [id number] [place] [address]- 3860 Apr, [facility] [place] [facility] [address] [id number] [place] [address]- 3283 Apr, [facility] [place] [facility] [address] [id number] [place] [address]- 2909 Apr, [facility] [place] [facility] [address] [id number] [place] [address]- 2378 Apr, [facility] [place] [facility] [address] [id number] [place] [address]- 2962 Apr, [facility] [place] [facility] [address] [id number] [place] [address]- 0128 Apr, [facility] [place] [facility] [address] [id number] [place] [address]- 6369 Apr, [facility] [place] [facility] [address] [id number] [place] [address]- 2048 Apr, [facility] [place] [facility] [address] [id number] [place] [address]- 7220 Apr, [facility] [place] [facility] [address] [id number] [place] [address]- 2030 Apr, [facility] [place] [facility] [address] [id number] [place] [address]- 4335 Apr, [facility] [place] [facility] [address] [id number] [place] 5207 Apr, [facility] [place] [facility] [address] [id number] [place] [address]- 3751 Apr, [facility] [place] [facility] [address] [id number] [place] [address]- 7477 Apr, [facility] [place] [facility] [address] [id number] [place] [address]- 3910 Apr, [facility] [place] [facility] [address] [id number] [place] [address]- 0869 Apr, [facility] [place] [facility] [address] [id number] [place] [address]- 2736 Apr, [facility] [place] [facility] [address] [id number] [place] [address]- 0702 Mar, [facility] [place] [facility] [address] [id number] [place] [address]- 6294 Mar, [facility] [place] [facility] [address] [id number] [place] [address]- 1757 Mar, [facility] [place] [facility] [address] [id number] [place] [address]- 6297 Mar, [facility] [place] [facility] [address] [id number] [place] [address]- 9158 Mar, [facility] [place] [facility] [address] [id number] [place] [address]- 4141 Mar, [facility] [place] [facility] [address] [id number] [place] [address]- 9570 Mar, [facility] [place] [facility] [address] [id number] [place] [address]- 7045 Mar, [facility] [place] [facility] [address] [id number] [place] [address]- 9849 Mar, [facility] [place] [facility] [address] [id number] [place] [address]- 1751 Mar, [facility] [place] [facility] [address] [id number] [place] [address]- 8059 Mar, [facility] [place] [facility] [address] [id number] [place] [address]- 9423 Mar, [facility] [place] [facility] [address] [id number] [place] [address]- 1493 Mar, [facility] [place] [facility] [address] [id number] [place] [address]- 5961 Feb, [facility] [place] [facility] [address] [id number] [place] [address]- 6043 Feb, [facility] [place] [facility] [address] [id number] [place] [address]- 1409 Feb, [facility] [place] [facility] [address] [id number] [place] [address]- 7069 Feb, [facility] [place] [facility] [address] [id number] [place] [address]- 9340 Feb, [facility] [place] [facility] [address] [id number] [place] [address]- 0030 Feb, [facility] [place] [facility] [address] [id number] [place] [address]- 2773 Feb, [facility] [place] [facility] [address] [id number] [place] [address]- 7883 Feb, [facility] [place] [facility] [address] [id number] [place] [address]- 2071 Feb, [facility] [place] [facility] [address] [id number] [place] [address]- 8344 Feb, [facility] [place] [facility] [address] [id number] [place] [address]- 0963 Feb, [facility] [place] [facility] [address] [id number] [place] [address]- 4158 Feb, [facility] [place] [facility] [address] [id number] [place] [address]- 2457 Feb, [facility] [place] [facility] [address] [id number] [place] [address]- 2129 Feb, [facility] [place] [facility] [address] [id number] [place] [address]- 7044 Feb, [facility] [place] [facility] [address] [id number] [place] [address]- 7641 Jan, [facility] [place] [facility] [address] [id number] [place] [address]- 6525 08 Jan, 2014 [facility] [place] [facility] [address] [id number] [place] [address]- 9461 Jan, [facility] [place] [facility] [address] [id number] [place] [address]- 8454 Jan, [facility] [place] [facility] [address] [id number] [place] [address]- 5450 Jan, [facility] [place] [facility] [address] [id number] [place] [address]- 0899 Dec, [facility] [place] [facility] [address] [id number] [place] [address]- 2679 Dec, [facility] [place] [facility] [address] [id number], [place] [address]- 2128 Dec, [facility] [place] [facility] [address] [id number] [place] [address]- 8635 Dec, [facility] [place] [facility] [address] [id number] [place] [address]- 2662 Nov, [facility] [place] [facility] [address] [id number], [place] [address]- 8159 Nov, [facility] [place] [facility] [address] [id number], [place] [address]- 2139 Nov, [facility] [place] [facility] [address] [id number] [place] [address]- 2337 Nov, [facility] [place] [facility] [address] [id number] [place] [address]- 6852 Nov, [facility] [place] [facility] [address] [id number] [place] [address]- 1818 Nov, [facility] [place] [facility] [address] [id number] [place] [address]- 3270 Nov, [facility] [place] [facility] [address] [id number] [place] [address]- 4912 Nov, [facility] [place] [facility] [address] [id number] [place] [address]- 2300 Nov, [facility] [place] [facility] [address] [id number] [place] [address]- 5736 Nov, [facility] [place] [facility] [address] [id number] [place] [address]- 5894 Oct, [facility] [place] [facility] [address] [id number] [place] [address]- 3656 Oct, [facility] [place] [facility] [address] [id number] [place] [address]- 5602 September, [facility] [place] [facility] [address] [id number] [place] [address]- 9009 September, [facility] [place] [facility] [address] [id number] [place] [address]- 6021 September, [facility] [place] [facility] [address] [id number] [place] [address]- 1643 September, [facility] [place] [facility] [address] [id number] [place] [address]- 4485 16 Aug, 2013 [facility] [place] [facility] [address] [id number] [place] [address]- 0820 14 Aug, 2013 [facility] [place] [facility] [address] [id number] [place] [address]- 5600 14 Aug, 2013 [facility] [place] [facility] [address] [id number] [place] [address]- 4304 24 Jul, 2013 [facility] [place] [facility] [address] [id number] [place] [address]- 2722 24 Jul, 2013 [facility] [place] [facility] [address] [id number] [place] [address]- 2844 14 Jul, 2013 [facility] [place] [facility] [address] [id number] [place] [address]- 0284 14 Jul, 2013 [facility] [place] [facility] [address] [id number] [place] [address]- 2633 May, [facility] [place] [facility] [address] [id number] [place] [address]- 6121 17 May, 2013 [facility] [place] [facility] [address] [id number] [place] [address]- 4975 17 May, 2013 [facility] [place] [facility] [address] [id number] [place] [address]- 8416 15 Mar, 2013 [facility] [place] [facility] [address] [id number] [place] [address]- 2615 15 Mar, 2013 [facility] [place] [facility] [address] [id number] [place] [address]- 4341 Mar, [facility] [place] [facility] [address] [id number] [place] [address]- 6616 13 Mar, 2013 [facility] [place] [facility] [address] [id number] [place] [address]- 6077 16 Feb, 2013 [facility] [place] [facility] [address] [id number] [place] [address]- 9558 16 Feb, 2013 [facility] [place] [facility] [address] [id number] [place] [address]- 3675 04 Feb, 2013 [facility] [place] [facility] [address] [id number] [place] [address]- 0274 16 Jan, 2013 [facility] [address] [id number] [place] [address]- 1372 Jan, [facility] [place] [facility] [address] [id number] [place] [address]- 4539 Jan, [facility] [place] [facility] [address] [id number] [place] [address]- 4501 Dec, [facility] [place] [facility] [address] [id number] [place] [address]- 0445 Dec, [facility] [place] [facility] [address] [id number] [place] [address]- 5673 Dec, [facility] [place] [facility] [address] [id number] [place] [address]- 4837 Dec, [facility] [place] [facility] [address] [id number] [place] [address]- 0230 Nov, [facility] [place] [facility] [address] [id number] [place] [address]- 9476 Oct, [facility] [place] [facility] [address] [id number] [place] [address]- 3780 Oct, [facility] [place] [facility] [address] [id number] [place] [address]- 4942 September, [facility] [place] [facility] [address] [id number] [place] [address]- 5912 September, [facility] [place] [facility] [address] [id number], [place] [address]- 2542 September, [facility] [place] [facility] [address] [id number] [place] [address]- 3515 Aug, [facility] [place] [facility] [address] [id number] [place] [address]- 1980 Aug, [facility] [place] [facility] [address] [id number] [place] [address]- 0693 Aug, [facility] [place] [facility] [address] [id number] [place] [address]- 8936 09 Aug, 2012 [facility] [address] [id number] [place] [address]- 0292 26 Jul, 2012 [facility] [address] [id number] [place] [address]- 5126 25 Jul, 2012 [facility] [address] [id number] [place] [address]- 8386 21 Jul, 2012 [facility] [address] [id number] [place] [address] 2548 15 Jul, 2012 [facility] [address] [id number] [place] [address]- 4234 14 Jul, 2012 [facility] [address] [id number] [place] [address]- 3846 13 Jul, 2012 [facility] [address] [id number] [place] [address]- 3051 Jul, [facility] [address] [id number] [place] [address]- 7633 Jun, [facility] [address] [id number] [place] [address]- 0322 Jun, [facility] [address] [id number] [place] [address]- 9365 Jun, [facility] [address] [id number] [place] [address] 254 Jun, [facility] [address] [id number] [place] [address] 2545 May, [facility] [place] [facility] [address] [id number] [place] [address]- 6811 May, [facility] [place] [facility] [address] [id number] [place] [address]- 4765 May, [facility] [address] [id number] [place] 3368 May, [facility] [place] [facility] [address] [id number] [place] [address]- 6570 May, [facility] [place] [facility] [address] [id number] [place] [address]- 4873 Apr, [facility] [place] [facility] [address] [id number] [place] [address]- 6477 Apr, [facility] [place] [facility] [address] [id number] [place] [address]- 2036 Mar, [facility] [place] [facility] [address] [id number] [place] [address]- 3040 Mar, [facility] [place] [facility] [address] [id number] [place] [address]- 6457 Mar, [facility] [place] [facility] [address] [id number] [place] [address]- 3835 Mar, [facility] [place] [facility] [address] [id number], [place] [address]- 6051 Mar, [facility] [place] [facility] [address] [id number] [place] [address]- 2394 Mar, [facility] [place] [facility] [address] [facility] [id number], [place] [address]- 0325 Mar, [facility] [place] [facility] [address] [id number], [place] [address]- 3314 Mar, [facility] [place] [facility] [address] [id number], [place] [address]- 4442 Mar, [facility] [place] [facility] [address] [id number], [place] [address]- 0164 Mar, [facility] [place] [facility] [address] [id number], [place] [address]- 3447 Feb, [facility] [place] [facility] [address] [id number], [place] [address]- 5348 Feb, [facility] [place] [facility] [address] [id number], [place] [address]- 1529 Feb, [facility] [place] [facility] [address] [id number] [place] [address]- 9890 Feb, [facility] [place] [facility] [address] [id number] [place] [address]- 1974 Feb, [facility] [place] [facility] [address] [id number] [place] [address] Feb, [facility] [place] [facility] [address] [id number] [place] [address] Feb, [facility] [place] [facility] [address] [id number] [place] [address] Jan, [facility] [place] [facility] [address] [id number] [place] [address] Jan, [facility] [place] [facility] [address] [id number] [place] [address] Dec, [facility] [place] [facility] [address] [id number] [place] [address] Dec, [facility] [place] [facility] [address] [id number] [place] [address] Dec, [facility] [place] [facility] [address] [id number] [place] [address] Dec, [facility] [place] [facility] [address] [id number] [place] [address] 16 Dec, 2011 [facility] [place] [facility] [address] [id number] [place] [address] Dec, [facility] [place] [facility] [address] [id number] [place] [address] Nov, [facility] [place] [facility] [address] [id number] [place] [address] Nov, [facility] [place] [facility] [address] [facility] [id number] [place] [address] Nov, [facility] [place] [facility] [address] [id number] [place] [address] Nov, [facility] [place] [facility] [address] [id number] [place] [address] September, [facility] [place] [facility] [address] [id number] [place] [address] September, [facility] [place] [facility] [address] [id number] [place] [address] September, [facility] [place] [facility] [address] [id number] [place] [address] Jul, [facility] [place] [facility] [address] [id number] [place] [address] 29 Jun, 2011 [facility] [place] [facility] [address] [id number] [place] [address] Jun, [facility] [place] [facility] [address] [id number] [place] [address] Jun, [facility] [place] [facility] [address] [id number] [place] [address] Apr, [facility] [place] [facility] [address] [id number] [place] [address] Mar, [facility] [place] [facility] [address] [id number] [place] [address] Mar, [facility] [place] [facility] [address] [id number] [place] [address] Feb, [facility] [place] [facility] [address] [id number] [place] [address] Feb, [facility] [place] [facility] [address] [id number] [place] [address] 11 Feb, 2011 [facility] [place] [facility] [address] [id number] [place] [address] 10 Jul, 2009 [facility] [place] [facility] [address] [id number], [place] [address] Feb, IMMUNIZATIONS No Known Immunizations SOCIAL HISTORY Never Assessed REASON FOR VISIT Requests return call PLAN OF CARE VITAL SIGNS MEDICATIONS Medication [...]
--- OUTSIDE RECORDS SUMMARY | 2018-05-09 22:37 | XMS REPORT ---
Author Author MACY TAMAYO Organization [facility] Address [address] [place] [address] Care Team Providers Care Collision Mechanic Name Role Phone MACY TAMAYO Unavailable PROBLEMS Type Condition ICD9-CM Code YMQ23-OB Code Onset Dates Condition Status SNOMED Code Problem Tachycardia with heart rate 121-140 beats per minute R00.0 Active 6699099 Problem Enlarged thyroid gland E04.9 Active 6824908 Problem Body mass index (BMI) of 45.0-49.9 in adult Z68.42 Active 951186560 Problem Other specified mental disorders due to known physiological condition F06.8 Active 57708994 Problem Mood disorder F39 Active 56271270 Problem Frequent falls R29.6 Active 013585588 Problem Allergic rhinitis due to pollen J30.1 Active 58601909 Problem Menopause Z78.0 Active 665668037 Problem Lumbago with sciatica, right side M54.41 Active 214058454 Problem Dermatomyositis M33.90 Active 161988681 Problem Facial droop R29.810 Active 38215680 Problem Gait disturbance R26.9 Active 32388447 Problem Anxiety F41.9 Active 91739144 Problem Other chronic pain G89.29 Active 63502396 Problem Diabetes type 2, controlled E11.9 Active 69235794 Problem Osteoarthritis of right knee, unspecified osteoarthritis type M17.9 Active 445732546 Problem Plantar wart of both feet B07.0 Active [id number] Problem Lumbago with sciatica, left side M54.42 Active 280551388 Problem Arthritis M19.90 Active 7130528 Problem Controlled type 2 diabetes mellitus without complication, without long -term current use of insulin E11.9 Active 883267971 Problem Plantar warts B07.0 Active 85213762 Problem Morbid (severe) obesity due to excess calories E66.01 Active 557301031 ALLERGIES No Information ENCOUNTERS Encounter Location Date Diagnosis [facility] [address] [id number] [address] Mar, [facility] [address], [place] [address] Mar, [facility] [address] [place] [id number] [place] [address] 29957- 9689 Feb, [facility] [address] [place] [id number] [place] [address] 45994- 1592 Feb, [facility] [address] [place] [id number] [place] [address] 03998- 1101 Feb, [facility] [address] [place] [place] [id number] [place] [address] 30753- 1862 Feb, [facility] [address] [place] [id number] [place] [address] 19262- 7701 Feb, BMI 45.0-49.9, adult Z68.42 ; Gait disturbance R26.9 ; Other specified mental disorders due to known physiological condition F06.8 ; Weakness R53.1 ; Frequent falls R29.6 and Self-care deficit for bathing R46.0 [facility] [address] [place] [address] 47205- 4699 Feb, [facility] [address] [place] [address] 02627- 1755 Jan, Mood disorder F39 [facility] [address] [place] [address] 79877- 0282 Jan, BMI 45.0-49.9, adult Z68.42 and 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 [facility] [address], [place] [address] 4041 Jan, [facility] [address] [place] [id number] [place] [address] 53388- 0884 Jan, [facility] [address], [place] [address]- 9176 Jan, [facility] [address] [id number] [place] [address] 78301- 0162 Jan, 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 [place] [address] 36159- 0408 Jan, [facility] [address] [place] [place] [id number] [place] [address] 27626- 3082 Jan, [place] [address] 86854- 9744 Jan, [place] [address] 87813- 7730 19 Jan, 2018 Allergic reaction to drug, initial encounter T78.40XA [place] [address] 59995- 0365 17 Jan, 2018 BMI 45.0-49.9, adult Z68.42 and Facial droop R29.810 [place] [address] 51998- 3695 14 Jan, 2018 Mood disorder F39 [place] [address] 48286- 6778 11 Jan, 2018 Dermatomyositis M33.90 and BMI 40.0-44.9, adult Z68.41 [place] [address] [place] [id number] [place] [address] 75271- 5843 10 Jan, 2018 [place] [address] [place] [id number] [place] [address] 87837- 1801 05 Jan, 2018 [place] [address] [place] [id number] [place] [address] 91185- 4245 04 Jan, 2018 Irritation of left eye H57.8 and BMI 40.0-44.9, adult Z68.41 [place] [address] [place] [id number] [place] [address] 02920- 9299 Dec, Diabetes type 2, controlled E11.9 [place] [address] [place] [id number] [place] [address] 34753- 1511 Dec, Acute right ankle pain M25.571 [facility] [address] [id number] [place] [address] 86957- 9695 Dec, Other chronic pain G89.29 ; Diabetes type 2, controlled E11.9 ; Gait disturbance R26.9 ; Weakness R53.1 and Muscle spasm M62.838 [facility] [address] [place] [id number] [place] [address] 35489- 0490 Dec, Acute non-recurrent maxillary sinusitis J01.00 [facility] [address] 41116- 4163 Dec, [place] [address] 83129- 3420 Dec, [facility] [address] 13147- 1377 Dec, Acute non-recurrent maxillary sinusitis J01.00 [facility] [address] 76271- 0710 Dec, Lumbago with sciatica, right side M54.41 and Lupus erythematosus L93.0 [place] [address] 27158- 5280 Dec, Mood disorder F39 [facility] [address] 05195- 9306 Dec, Mood disorder F39 [facility] [address] 28761- 8271 Dec, [facility] [address] 21309- 6254 Dec, Acute right ankle pain M25.571 [facility] [address] 14332- 0621 Nov, Lumbar radiculopathy M54.16 [facility] [address] 26222- 4145 Nov, [facility] [address], [place] [address] 5152 Nov, Mood disorder F39 [facility] [address] [id number] [place] [address] 22587- 1537 Nov, Lumbago with sciatica, right side M54.41 and Other chronic pain G89.29 [facility] [address] [place] [id number] [place] [address] 76582- 6473 Nov, Acute right ankle pain M25.571 [facility] [address] [place] [id number] [place] [address] 09442- 7959 Nov, [facility] [address] [id number] [place] [address] 20527- 3806 Oct, [facility] [address] [id number] [place] [address] 88889- 3890 Oct, Plantar wart of both feet B07.0 [facility] [address] [id number] [place] [address] 27692- 0238 Oct, [facility] [address] [id number] [place] [address] 69913- 5125 Oct, Acute right ankle pain M25.571 and Plantar wart of both feet B07.0 [facility] [address] [id number] [place] [address] 67965- 8495 September, Other chronic pain G89.29 [facility] [address] [id number] [place] [address] 76791- 9636 September, Other chronic pain G89.29 [facility] [address] [place] [id number] [place] [address] 88357- 5988 September, Other chronic pain G89.29 [facility] [address] [address] 0417 Aug, Mood disorder F39 [facility] [address] [place] [id number] [place] [address] 13981- 1672 Aug, Other chronic pain G89.29 ; Controlled type 2 diabetes mellitus without complication, without long-term current use of insulin E11.9 ; Low back pain M54.5 and Tinea corporis B35.4 [place] [address] 86076- 9944 Aug, Mood disorder F39 and Anxiety F41.9 [place] [address] 61251- 7190 Aug, Mood disorder F39 and Anxiety F41.9 [place] [address] 68918- 3837 Jul, [facility] [place] [address] [address] Jul, Scabies B86 and BMI 45.0-49.9, adult Z68.42 [place] [address] 92061- 6253 Jul, [place] [address] 32154- 2005 Jul, Mood disorder F39 and Anxiety F41.9 [place] [address] 85753- 2723 Jul, [facility] [place] [address] 39196 -8960 27 Jun, 2017 Bronchitis J40 ; Dark urine R82.99 and BMI 45.0-49.9, adult Z68.42 [place] [address] 14124- 6136 14 Jun, 2017 Acute pain of right shoulder M25.511 and Acute pain of right knee M25.561 [place] [address] 35436- 9254 May, BMI 40.0-44.9, adult Z68.41 ; Controlled type 2 diabetes mellitus without complication, without long-term current use of insulin E11.9 ; Muscle cramping R25.2 ; Hot flashes R23.2 ; Mood disorder F39 ; Anxiety F41.9 and Morbid (severe) obesity due to excess calories E66.01 [place] [address] [place] [address] 78392- 4767 May, BMI 40.0-44.9, adult Z68.41 ; Controlled type 2 diabetes mellitus without complication, without long-term current use of insulin E11.9 ; Muscle cramping R25.2 and Hot flashes R23.2 [place] [address] 77418- 3170 May, Tachycardia with heart rate 121-140 beats per minute R00.0 ; Morbid (severe) obesity due to excess calories E66.01 ; Diabetes type 2, controlled E11.9 and Enlarged thyroid gland E04.[address] 99231- 9219 May, Encounter for well woman exam with [...] Dysuria R30.0 and Screening breast examination Z12.31 [place] [address] [place] [id number] [place] [address] 05414- 6049 Apr, Mood disorder F39 ; Other chronic pain G89.29 and Anxiety F41.[address] 91777- 0813 Apr, Lumbago with sciatica, left side M54.42 and Other chronic pain G89.29 [place] [id number] [place] [address] 89646- 2236 Apr, Lupus erythematosus L93.0 [place] [address] [place] [id number] [place] [address] 36799 2546 Mar, Plantar wart of both feet B07.0 [facility] [address] [place] [place] [id number] [place] [address] 61298 2546 Mar, Lupus erythematosus L93.0 and Sinus drainage J34.89 [facility] [address] 25413 2546 Mar, Mood disorder F39 ; Other chronic pain G89.29 and Anxiety F41.9 [facility] [address] [place] [place] [id number] [place] [address] 44165 2542 Mar, Mood disorder F39 ; Arthritis M19.90 and Plantar warts B07.0 [facility] [address] [place] [place] [id number] [place] [address] 83115- 9816 Feb, Lupus erythematosus L93.0 [facility] [address] [place] [place] [id number] [place] [address] 25760- 2523 Feb, Other chronic pain G89.29 [facility] [address] [place] [place] [id number] [place] [address] 31680- 4646 Feb, Mood disorder F39 and Anxiety F41.9 [facility] [address] [place] [place] [id number] [place] [address] 96532- 5879 Jan, [facility] [address] [place] [id number] [place] [address] 51181- 2280 Jan, Mood disorder F39 [facility] [address] [place] [id number] [place] [address] 80138- 0751 Dec, Nail, ingrown L60.0 [facility] [address] [place] [id number] [place] [address] 63455- 3606 Dec, Nail, ingrown L60.0 [facility] [address] [place] [place] [id number] [place] [address] 94063- 7392 Nov, Mood disorder F39 and Anxiety F41.9 [facility] [address] [place] [place] [id number] [place] [address] 94996- 1324 Nov, Sinus drainage J34.89 ; Hot flashes R23.2 ; Anxiety F41.9 and Diabetes type 2, controlled E11.9 [facility] [address] [place] [place] [id number] [place] [address] 88671- 0920 Nov, Nail, ingrown L60.0 [facility] [address] [place] [place] [id number] [place] [address] 19588- 9952 Oct, Anxiety F41.9 and Mood disorder F39 [facility] [address] [place] [id number] [place] [address] 31213- 6315 Oct, Nail, ingrown L60.0 and Anxiety F41.9 [facility] [address] [place] [place] [id number] [place] [address] 19218- 0216 Oct, Lupus erythematosus L93.0 [facility] [address] [place] [place] [id number] [place] [address] 84457- 1849 September, [facility] [address] [place] [place] [id number] [place] [address] 45484- 8020 September, [facility] [address] [place] [place] [id number] [place] [address] 25957- 2890 September, Lupus erythematosus L93.0 [facility] [address] [place] [id number] [place] [address] 44088- 6147 Aug, [facility] [address] [place] [place] [id number] [place] [address] 11438- 1319 Aug, Mood disorder F39 and Anxiety F41.9 [facility] [address] [place] [place] [id number] [place] [address] 34409- 7589 Aug, Lupus erythematosus L93.0 ; Diabetes type 2, controlled E11.9 and Localized edema R60.0 [facility] [address] [place] [place] [id number] [place] [address] 18447- 5746 Aug, [facility] [address] [place] [place] [id number] [place] [address] 64163- 8815 10 Jul, 2016 Anxiety F41.9 and Mood disorder F39 [facility] [address] [place] [id number] [place] [address] 45627- 0550 10 Jul, 2016 Diabetes type 2, controlled E11.9 [facility] [address] [place] [id number] [place] [address] 18113- 7079 13 Jun, 2016 Anxiety F41.9 [facility] [address] [place] [id number] [place] [address] 71952- 4830 May, [place] [address] [place] [id number] [place] [address] 67429- 7280 May, [place] [address] 46215- 6469 May, Nausea R11.0 ; Other chronic pain G89.29 and Pain in right knee M25.561 [place] [address] 70420- 2137 May, [place] [address] [place] [id number] [place] [address] 82191- 8474 Apr, Tear of medial meniscus of right knee, current, unspecified tear type, subsequent encounter S83.241D and Tear of lateral meniscus of right knee, current, unspecified tear type, subsequent encounter S83.281D [place] [address] [place] [id number] [place] [address] 15426- 3922 Apr, Anxiety F41.9 and Mood disorder F39 [facility] [address] [place] [id number] [place] [address] 85426- 2173 Apr, Anxiety F41.9 [place] [address] [place] [id number] [place] [address] 12007- 8564 Apr, [facility] [address] [place] [id number] [place] [address] 07523- 2798 Mar, [facility] [address] [place] [id number] [place] [address] 99889- 4250 Mar, Lupus erythematosus L93.0 and Diabetes type 2, controlled E11.9 [facility] [address] [place] [place] [id number] [place] [address] 07645- 2826 Mar, Mood disorder F39 [facility] [address] [place] [place] [id number] [place] [address] 84583- 2542 Mar, Tear of lateral meniscus of right knee, current, unspecified tear type, initial encounter S83.281A and Osteoarthritis of right knee, unspecified osteoarthritis type M17.9 [facility] [address] [place] [place] [id number] [place] [address] 87462- 4500 Mar, [facility] [address] [place] [place] [id number] [place] [address] 82371- 9753 Feb, Mood disorder F39 [facility] [address] [place] [place] [id number] [place] [address] 28376- 8141 Feb, Rash R21 [facility] [address] [place] [place] [id number] [place] [address] 38482- 4268 Feb, [facility] [address] [place] [place] [id number] [place] [address] 76233- 2370 Jan, Other chronic pain G89.29 and Muscle spasm M62.838 [facility] [address] [place] [place] [id number] [place] [address] 48753- 7430 Jan, Mood disorder F39 [facility] [address] [place] [id number] [place] [address] 63737 2544 Jan, Pain in right knee M25.561 ; Other chronic pain G89.29 and Muscle spasm M62.838 [facility] [address] [place] [place] [id number] [place] [address] 50032- 3496 Dec, [facility] [address] [place] [place] [id number] [place] [address] 64930 2547 Dec, [facility] [address] [place] [id number] [place] [address] 06779- 2848 Nov, [facility] [address] [place] [place] [id number] [place] [address] 48474- 5429 Nov, Mood disorder F39 [place] [address] [place] [id number] [place] [address] 30243- 5088 Nov, Diabetes type 2, controlled E11.9 ; Bronchitis J40 ; Edema, unspecified type R60.9 ; Weight gain R63.5 and Right knee pain, unspecified chronicity M25.561 [place] [address] [place] [id number] [place] [address] 37210- 8148 Oct, Mood disorder F39 [place] [address] [place] [id number] [place] [address] 74910- 4034 Oct, Lupus erythematosus L93.0 and Bilateral edema of lower extremity R60.0 [place] [address] [place] [id number] [place] [address] 51119- 4463 Oct, Mood disorder F39 and Anxiety F41.9 [place] [address] [place] [id number] [place] [address] 05593- 1622 September, Mood disorder F39 ; Anxiety F41.9 and Anger reaction R45.4 [place] [address] [place] [id number] [place] [address] 14836- 0508 September, Diabetes type 2, controlled E11.9 ; Edema, unspecified type R60.9 and Fatigue, unspecified type R53.83 [place] [address] [place] [id number] [place] [address] 04652- 1739 Aug, Mood disorder F39 and Generalized anxiety disorder F41.1 [place] [address] [place] [id number] [place] [address] 90200- 7217 Aug, Diabetes type 2, controlled E11.9 ; Sinusitis J32.9 and Mood disorder F39 [place] [address] [place] [id number] [place] [address] 95355- 9692 Aug, Lupus erythematosus L93.0 [place] [address] [place] [id number] [place] [address] 15575- 3543 14 Aug, 2015 [facility] [address], [place] [address]- 7328 07 Aug, 2015 [facility] [address] [place] [address] 49039- 9126 Jul, Diabetes type 2, controlled E11.9 [facility] [address] [place] [address] 99323 2546 Jul, Mood disorder F39 and Depression F32.9 [facility] [address] [place] [id number] [place] [address] 30329- 4092 Jul, Lupus erythematosus L93.0 and Diabetes type 2, controlled E11.9 [facility] [address] [place] [id number] [place] [address] 71508- 2951 Jul, Mood disorder F39 and Anxiety F41.9 [facility] [address] [place] [id number] [place] [address] 67503- 2036 Jul, [facility] [address] [place] [address] 93257- 5903 Jul, [facility] [address] [place] [id number] [place] [address] 10465- 4071 Jun, Mood disorder F39 and Anxiety F41.9 [facility] [address], [place] [address]- 2898 Jun, Mood disorder F39 [facility] [address] [place] [address] 06678 2546 18 Jun, 2015 [facility] [address], [place] [address]- 8524 Jun, [facility] [address] [address]- 1032 08 Jun, 2015 Mood disorder F39 [facility] [address] [address]- 5136 Jun, [facility] [address] [place] [address] [address]- 0235 May, [facility] [address] [place] [id number] [place] [address] 63184- 2974 May, [facility] [address] [place] [id number] [place] [address] 09024- 7717 May, [facility] [address] [place] [id number] [place] [address] 61087- 7659 May, [facility] [address] [place] [id number] [place] [address] 92996- 2144 May, Anxiety F41.9 ; Dermatomyositis M33.90 and Diabetes type 2, controlled E11.9 [facility] [address] [place] [address] 61698 -4068 May, Sinusitis J32.9 and Cough R05 [facility] [address] [place] [id number] [place] [address] 29522- 3713 May, Mood disorder F39 [facility] [address] [place] [id number] [place] [address] 55130- 8317 May, Adjustment disorder with mixed anxiety and depressed mood F43.23 [facility] [id number] [place] [address] 63814- 6313 Apr, [facility] [address] [place] [id number] [place] [address] 02129- 5243 Apr, [facility] [address] [place] [id number] [place] [address] 48724- 1734 Apr, Generalized anxiety disorder F41.1 and Mood disorder F39 [facility] [address] [place] [id number] [place] [address] 46395- 9234 Mar, [facility] [address] [place] [id number] [place] [address] 09491- 4151 Mar, [facility] [address] [place] [id number] [place] [address] 58328- 8210 Mar, [facility] [address] [address]- 9323 Mar, Mood disorder F39 [place] [address] [place] [id number] [place] [address] 16098- 0959 Feb, [facility] [address] [place] [id number] [place] [address] 31117- 7576 Feb, Diabetes E11.9 and Bronchitis J40 [place] [address] [place] [id number] [place] [address] 64510- 7540 Feb, [place] [address] [place] [id number] [place] [address] 71176- 6724 Feb, [place] [address] [place] [id number] [place] [address] 56730- 1776 Feb, Major depression, recurrent, full remission F33.42 and KELLY ( generalized anxiety disorder) F41.1 [place] [address] [place] [id number] [place] [address] 36995- 2849 Feb, [place] [address] [place] [id number] [place] [address] 74933- 2983 Feb, Single major depressive episode, in partial or unspecified remission F32.5 [place] [address] [place] [id number] [place] [address] 04797- 4099 Jan, Fatigue 780.79 [place] [address] [place] [id number] [place] [address] 54008- 2175 Jan, [place] [address] [place] [id number] [place] [address] 45402- 8427 Jan, Diabetes with other specified manifestations, type II or unspecified type, not stated as uncontrolled 250.80 [place] [address] [place] [id number] [place] [address] [id number]- 3124 Jan, [place] [address] [place] [id number] [place] [address] 15330- 5755 Dec, Hot flashes 627.2 ; Memory loss 780.93 and Joint pain 719.40 [place] [id number] [address] Dec, Major depression, recurrent 296.30 ; Generalized anxiety disorder 300.02 ; Adjustment disorder with depressed mood 309.0 and No condition on [place] II V71.09 [place] [id number] [place] [address] 66054- 6398 Dec, [place] [address] [place] [place] [id number] [place] [address] 15644- 8227 Nov, Cognitive and neurobehavioral dysfunction 294.9 ; Major depressive disorder, recurrent episode, moderate degree 296.32 and Anxiety state , unspecified 300.00 [place] [id number] [place] [address] 70666- 8564 Nov, [place] [id number] [place] [address] 26192- 1110 Nov, Bronchitis 490 and Diabetes with other specified manifestations, type II or unspecified type, not stated as uncontrolled 250.80 [place] [id number] [place] [address] 91506- 1516 Nov, Major depressive disorder, recurrent episode, moderate 296.32 and Anxiety disorder, unspecified 300.[id number] [place] [address] 54246- 2526 Nov, Anxiety, generalized 300.02 ; Intermittent explosive disorder 312.34 ; No condition on [place] II V71.09 and No condition on axis III V71.09 [place] [id number] [place] [address]- 2720 Oct, Diabetes with other specified manifestations, type II or unspecified type, not stated as uncontrolled 250.80 ; Urinary tract infection, site not specified 599.0 and Bronchitis [id number] [place] [address] 38128- 6684 Oct, Intermittent explosive disorder 312.34 ; Bipolar 1 disorder , depressed, moderate 296.52 ; Major depression, chronic 296.20 ; No condition on [place] II V71.09 and No condition on axis III V71.09 [facility] [address] [address] Oct, Major depressive disorder, recurrent episode, moderate 296.32 ; Anxiety state 300.00 ; Cognitive decline 294.9 and No condition on [place] II V71.09 [facility] [address], [place] [address] Oct, [facility] [address] [place] [id number] [place] [address] 35799- 4199 Oct, Major depressive disorder, recurrent episode, moderate 296.32 ; Anxiety disorder, unspecified 300.00 and Persistent disorder of initiating or maintaining sleep 307.42 [place] [address] [place] [id number] [place] [address] 07106- 9262 September, Diabetes with other specified manifestations, type II or unspecified type, not stated as uncontrolled 250.80 ; Memory loss 780.93 and Cognitive complaints 799.59 [place] [id number] [address] September, No condition on [place] II V71.09 ; Major depression, recurrent 296.30 and Persistent mood [affective] disorder, unspecified 296.90 [place] [address] [address] 3[address] Aug, [place] [address], [place] [address] 8112 Aug, [facility] [id number] [address] 4967 Aug, [facility] [address], [place] [address] 8022 Jul, [facility] [address] [place] [address] [id number] [place] [address] 52082- 5975 Jul, [facility] [address] [address] Jul, [place] [address] [place] [id number] [place] [address]- 4081 Jul, 2014 [facility] [place] [facility] [address] [id number] [place] [address]- 7926 Jul, 2014 [facility] [place] [facility] [address] [id number] [place] [address]- 0217 Jun, 2014 [facility] [place] [facility] [address] [id number] [place] [address]- 9368 Jun, 2014 [facility] [place] [facility] [address] [id number] [place] [address]- 7991 Jun, 2014 [facility] [place] [facility] [address] [id number] [place] [address]- 0378 Jun, 2014 [facility] [place] [facility] [address] [facility] [id number] [place] [address]- 0057 Jun, 2014 [facility] [place] [facility] [address] [facility] [id number] [place] [address]- 9465 Jun, 2014 [facility] [place] [facility] [address] [facility] [id number] [place] [address]- 6876 Jun, 2014 [facility] [place] [facility] [address] [facility] [id number] [place] [address]- 3321 Jun, 2014 [facility] [place] [facility] [address] [facility] [id number] [place] [address]- 8316 Jun, 2014 [facility] [place] [facility] [address] [facility] [id number] [address]- 7662 Jun, 2014 [facility] [place] [facility] [address] [facility] [id number] [place] [address]- 4517 Jun, 2014 [facility] [place] [facility] [address] [id number] [place] [address]- 0602 Jun, 2014 [facility] [place] [facility] [address] [facility] [id number] [place] [address]- 0716 Jun, 2014 [facility] [place] [facility] [address] [facility] [id number] [place] [address]- 0079 May, [facility] [place] [facility] [address] [id number] [place] [address]- 3613 May, [facility] [place] [facility] [address] [id number] [place] [address]- 8209 Apr, [facility] [place] [facility] [address] [id number] [place] [address]- 9906 Apr, [facility] [place] [facility] [address] [id number] [place] [address]- 3123 Apr, [facility] [place] [facility] [address] [id number] [place] [address]- 4207 Apr, [facility] [place] [facility] [address] [id number] [place] [address]- 0444 Apr, [facility] [place] [facility] [address] [id number] [place] [address]- 5528 Apr, [facility] [place] [facility] [address] [id number] [place] [address]- 7925 Apr, [facility] [place] [facility] [address] [id number] [place] [address]- 1836 Apr, [facility] [place] [facility] [address] [id number] [place] [address]- 5935 Apr, [facility] [place] [facility] [address] [id number] [place] [address]- 8674 Apr, [facility] [place] [facility] [address] [id number] [place] [address]- 9887 Apr, [facility] [place] [facility] [address] [id number] [place] [address]- 0576 Apr, [facility] [place] [facility] [address] [id number] [place] [address]- 1199 Apr, [facility] [place] [facility] [address] [id number] [place] [address]- 6372 Apr, [facility] [place] [facility] [address] [id number] [place] [address]- 0453 Apr, [facility] [place] [facility] [address] [id number] [place] [address]- 5765 Apr, [facility] [place] [facility] [address] [id number] [place] [address]- 6182 Apr, [facility] [place] [facility] [address] [id number] [place] [address]- 8669 Apr, [facility] [place] [facility] [address] [id number] [place] [address]- 3185 Apr, [facility] [place] [facility] [address] [id number] [place] [address]- 9131 Apr, [facility] [place] [facility] [address] [id number] [place] [address]- 9740 Mar, [facility] [place] [facility] [address] [id number] [place] [address]- 9590 Mar, [facility] [place] [facility] [address] [id number] [place] [address]- 5033 Mar, [facility] [place] [facility] [address] [id number] [place] [address]- 2128 Mar, [facility] [place] [facility] [address] [id number] [place] [address]- 5670 Mar, [facility] [place] [facility] [address] [id number] [place] [address]- 2505 Mar, [facility] [place] [facility] [address] [id number] [place] [address]- 9293 Mar, [facility] [place] [facility] [address] [id number] [place] [address]- 2589 Mar, [facility] [place] [facility] [address] [id number] [place] [address]- 2227 Mar, [facility] [place] [facility] [address] [id number] [place] [address]- 2977 Mar, [facility] [place] [facility] [address] [id number] [place] [address] Mar, [facility] [place] [facility] [address] [id number] [place] [address]- 3875 Mar, [facility] [place] [facility] [address] [id number] [place] [address]- 5084 Mar, [facility] [place] [facility] [address] [id number] [place] [address]- 0612 Feb, [facility] [place] [facility] [address] [id number] [place] [address]- 7631 Feb, [facility] [place] [facility] [address] [id number] [place] [address]- 4259 Feb, [facility] [place] [facility] [address] [id number] [place] [address]- 2304 Feb, [facility] [place] [facility] [address] [id number] [place] [address]- 8418 Feb, [facility] [place] [facility] [address] [id number] [place] [address]- 7601 Feb, [facility] [place] [facility] [address] [id number] [place] [address]- 2468 Feb, [facility] [place] [facility] [address] [id number] [address]- 9321 Feb, [facility] [place] [facility] [address] [id number], [place] [address]- 5744 Feb, [facility] [place] [facility] [address] [id number] [place] [address]- 4471 Feb, [facility] [place] [facility] [address] [id number], [place] [address]- 4612 Feb, [facility] [place] [facility] [address] [id number], [place] [address]- 0989 Feb, [facility] [place] [facility] [address] [id number] [place] [address]- 0421 Feb, [facility] [place] [facility] [address] [id number] [place] [address]- 8347 Feb, [facility] [place] [facility] [address] [id number] [place] [address]- 3203 Feb, [facility] [place] [facility] [address] [id number] [place] [address]- 6231 Jan, [facility] [place] [facility] [address] [id number] [place] [address]- 9059 08 Jan, 2014 [facility] [place] [facility] [address] [id number] [place] [address]- 2839 Jan, [facility] [place] [facility] [address] [id number] [place] [address]- 4871 Jan, [facility] [place] [facility] [address] [id number] [place] [address]- 4909 Jan, [facility] [place] [facility] [address] [id number] [place] [address]- 1909 Dec, [facility] [place] [facility] [address] [id number] [place] [address]- 1570 Dec, [facility] [place] [facility] [address] [id number] [place] [address]- 8661 Dec, [facility] [place] [facility] [address] [id number] [place] [address]- 6782 Dec, [facility] [place] [facility] [address] [id number] [place] [address]- 4754 Nov, [facility] [place] [facility] [address] [id number] [place] [address]- 6081 Nov, [facility] [place] [facility] [address] [id number] [place] [address]- 5417 Nov, [facility] [place] [facility] [address] [id number] [place] [address]- 6501 Nov, [facility] [place] [facility] [address] [id number] [place] [address]- 0223 Nov, 2013 [facility] [place] [facility] [address] [id number] [place] [address]- 8212 Nov, [facility] [place] [facility] [address] [id number] [place] [address]- 6116 Nov, [facility] [place] [facility] [address] [id number] [place] [address]- 6861 Nov, [facility] [place] [facility] [address] [id number] [place] [address]- 9101 Nov, [facility] [place] [facility] [address] [id number] [place] [address]- 1540 Nov, [facility] [place] [facility] [address] [id number] [place] [address]- 9252 Oct, [facility] [place] [facility] [address] [id number] [place] [address]- 3069 Oct, [facility] [place] [facility] [address] [id number] [place] [address]- 9401 September, [facility] [place] [facility] [address] [id number] [place] [address]- 4758 September, [facility] [place] [facility] [address] [id number] [place] [address]- 4030 September, [facility] [place] [facility] [address] [id number] [place] [address]- 4200 September, [facility] [place] [facility] [address] [id number] [place] [address]- 6898 16 Aug, 2013 [facility] [place] [facility] [address] [id number] [place] [address]- 8510 Aug, [facility] [place] [facility] [address] [id number] [place] [address]- 3440 Aug, [facility] [place] [facility] [address] [id number], [place] [address]- 5350 24 Jul, 2013 [facility] [place] [facility] [address] [id number] [place] [address]- 5583 24 Jul, 2013 [facility] [place] [facility] [address] [id number] [place] [address]- 8081 Jul, [facility] [place] [facility] [address] [id number] [place] [address]- 5799 Jul, [facility] [place] [facility] [address] [id number] [place] [address]- 5737 May, [facility] [place] [facility] [address] [id number] [place] [address]- 9090 May, [facility] [place] [facility] [address] [id number] [place] [address]- 8002 May, [facility] [place] [facility] [address] [id number] [place] [address]- 4060 Mar, [facility] [place] [facility] [address] [id number] [place] [address]- 8307 15 Mar, 2013 [facility] [place] [facility] [address] [id number] [place] [address]- 5181 Mar, [facility] [place] [facility] [address] [id number] [place] [address]- 1021 Mar, [facility] [place] [facility] [address] [id number], [place] [address]- 5032 16 Feb, 2013 [facility] [place] [facility] [address] [id number], [place] [address]- 2776 16 Feb, 2013 [facility] [place] [facility] [address] [id number], [place] [address]- 3876 04 Feb, 2013 [facility] [place] [facility] [address] [id number], [place] [address]- 0774 16 Jan, 2013 [facility] [place] [facility] [address] [id number] [place] [address]- 5740 12 Jan, 2013 [facility] [place] [facility] [address] [id number] [place] [address]- 2546 Jan, [facility] [address] [id number] [place] [address]- 6800 Dec, [facility] [address] [id number] [place] [address]- 2856 Dec, [facility] [address] [id number] [place] [address]- 7876 Dec, [facility] [address] [id number] [place] [address]- 5078 Dec, [facility] [address] [id number] [place] [address]- 3304 Nov, [facility] [address] [id number] [place] [address]- 0220 Oct, [facility] [address] [id number] [place] [address]- 1751 Oct, [facility] [address] [id number] [place] [address]- 0419 September, [facility] [address] [id number] [place] [address]- 3629 September, [facility] [address] [id number] [place] [address]- 1464 September, [facility] [address] [id number] [place] [address]- 4919 Aug, [facility] [address] [id number] [place] [address]- 2775 Aug, [facility] [place] [facility] [address] [id number] [place] [address]- 2317 Aug, [facility] [place] [facility] [address] [id number] [place] [address]- 2546 Aug, [facility] [place] [facility] [address] [id number] [place] [address]- 8491 Jul, [facility] [address] [id number] [place] [address]- 5285 25 Jul, 2012 [facility] [place] [facility] [address] [id number] [place] [address]- 8431 21 Jul, 2012 [facility] [place] [facility] [address] [id number] [place] [address]- 6650 15 Jul, 2012 [facility] [place] [facility] [address] [id number] [place] [address]- 7812 14 Jul, 2012 [facility] [place] [facility] [address] [id number] [place] [address]- 5996 Jul, [facility] [place] [facility] [address] [id number] [place] [address]- 4114 Jul, [facility] [place] [facility] [address] [id number] [place] [address]- 9942 06 Jun, 2012 [facility] [place] [facility] [address] [id number] [place] [address]- 6904 Jun, [facility] [place] [facility] [address] [id number] [place] [address]- 1095 05 Jun, 2012 [facility] [place] [facility] [address] [id number] [place] [address]- 8876 Jun, [facility] [place] [facility] [address] [id number] [place] [address]- 1579 May, [facility] [place] [facility] [address] [id number] [place] [address]- 9620 May, [facility] [place] [facility] [address] [id number] [place] [address]- 6978 May, [facility] [place] [facility] [address] [id number] [place] [address]- 5364 May, [facility] [place] [facility] [address] [id number] [place] [address]- 0235 May, [facility] [place] [facility] [address] [id number] [place] [address]- 6001 Apr, [facility] [place] [facility] [address] [id number] [place] [address]- 2069 Apr, [facility] [place] [facility] [address] [id number] [place] [address]- 2649 Mar, [facility] [place] [facility] [address] [id number] [place] [address]- 9083 Mar, [facility] [place] [facility] [address] [id number] [place] [address]- 5981 Mar, [facility] [place] [facility] [address] [id number] [place] [address]- 1579 Mar, [facility] [place] [facility] [address] [id number] [place] [address]- 1412 Mar, [facility] [place] [facility] [address] [facility] [id number] [place] [address]- 9448 Mar, [facility] [place] [facility] [address] [id number] [place] [address]- 5334 Mar, [facility] [place] [facility] [address] [id number] [place] [address]- 0309 Mar, [facility] [place] [facility] [address] [facility] [id number] [place] [address]- 9678 Mar, [facility] [place] [facility] [address] [id number] [place] [address]- 9712 Mar, [facility] [place] [facility] [address] [id number] [place] [address]- 8530 Feb, [facility] [place] [facility] [address] [id number] [place] [address]- 8299 Feb, [facility] [place] [facility] [address] [facility] [id number] [place] [address]- 5743 Feb, [facility] [place] [facility] [address] [id number] [place] [address]- 4775 Feb, [facility] [place] [facility] [address] [id number] [place] [address]- 2550 Feb, [facility] [place] [facility] [address] [id number] [place] [address]- 0170 Feb, [facility] [place] [facility] [address] [id number] [place] [address]- 1415 Feb, [facility] [place] [facility] [address] [id number] [place] [address]- 4629 Jan, [facility] [place] [facility] [address] [id number] [place] [address]- 9799 Jan, [facility] [place] [facility] [address] [id number] [place] [address]- 5115 Dec, [facility] [place] [facility] [address] [id number] [place] [address]- 9099 Dec, [facility] [place] [facility] [address] [id number] [place] [address]- 7825 Dec, [facility] [place] [facility] [address] [id number] [place] [address]- 4002 Dec, [facility] [place] [facility] [address] [id number] [place] [address]- 7269 Dec, [facility] [place] [facility] [address] [id number] [place] [address]- 2342 Dec, [facility] [place] [facility] [address] [id number] [place] [address]- 5949 Nov, [facility] [place] [facility] [address] [id number] [place] [address]- 0272 Nov, [facility] [place] [facility] [address] [id number] [place] [address]- 6154 Nov, [facility] [place] [facility] [address] [id number] [place] [address]- 9099 Nov, [facility] [place] [facility] [address] [id number], [place] [address]- 2206 September, [facility] [address] [address]- 8296 September, [facility] [address], [place] [address]- 5006 September, [facility] [address], [place] [address]- 3796 Jul, [facility] [address], [place] [address]- 1118 Jun, [facility] [id number] [place] [address]- 2956 Jun, [facility] [id number] [place] [address] 15435- 6286 Jun, [facility] [id number] [place] [id number] Apr, [facility] [id number] [address] Mar, [facility] [id number] [address] Mar, [facility] [id number] [address] Feb, [facility] [id number] [address] Feb, [facility] [id number] [address] Feb, [facility] [id number] [address] Jul, [facility] [id number] [address] Feb, IMMUNIZATIONS No Known Immunizations SOCIAL HISTORY Never Assessed REASON FOR VISIT Prior Authorization Request/ PLAN OF CARE VITAL SIGNS MEDICATIONS Unknown [...]
--- OUTSIDE RECORDS SUMMARY | 2018-05-09 22:37 | XMS REPORT ---
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 Name Role Phone MACY TAMAYO Unavailable PROBLEMS Type Condition ICD9-CM Code DEH21-TG Code Onset Dates Condition Status SNOMED Code Problem Tachycardia with heart rate 121-140 beats per minute R00.0 Active 6830437 Problem Enlarged thyroid gland E04.9 Active 7392943 Problem Body mass index (BMI) of 45.0-49.9 in adult Z68.42 Active 139210053 Problem Other specified mental disorders due to known physiological condition F06.8 Active 70858031 Problem Mood disorder F39 Active 04462493 Problem Frequent falls R29.6 Active 502190963 Problem Allergic rhinitis due to pollen J30.1 Active 69290931 Problem Menopause Z78.0 Active 081992885 Problem Lumbago with sciatica, right side M54.41 Active 942053191 Problem Dermatomyositis M33.90 Active 606936971 Problem Facial droop R29.810 Active 10553893 Problem Gait disturbance R26.9 Active 93788640 Problem Anxiety F41.9 Active 40547504 Problem Other chronic pain G89.29 Active 66607729 Problem Diabetes type 2, controlled E11.9 Active 15575071 Problem Osteoarthritis of right knee, unspecified osteoarthritis type M17.9 Active 102261628 Problem Plantar wart of both feet B07.0 Active [id number] Problem Lumbago with sciatica, left side M54.42 Active 042110932 Problem Arthritis M19.90 Active 9828885 Problem Controlled type 2 diabetes mellitus without complication, without long -term current use of insulin E11.9 Active 006183222 Problem Plantar warts B07.0 Active 59271636 Problem Morbid (severe) obesity due to excess calories E66.01 Active 078641365 ALLERGIES No Information ENCOUNTERS Encounter Location Date Diagnosis [facility] [address] [facility] [id number] [address] Mar, [facility] [address], [place] [address] Mar, [facility] [address] [place] [id number] [place] [address] 86246- 7677 Feb, [facility] [id number] [place] [address] 37618- 9532 Feb, [facility] [id number] [place] [address] 70346- 3097 Feb, [facility] [id number] [place] [address] 45370- 4638 Feb, [facility] [id number] [place] [address] 36576- 3806 Feb, BMI 45.0-49.9, adult Z68.42 ; Gait disturbance R26.9 ; Other specified mental disorders due to known physiological condition F06.8 ; Weakness R53.1 ; Frequent falls R29.6 and Self-care deficit for bathing R46.0 [facility] [id number] [place] [address] 56902- 6518 Feb, [facility] [id number] [place] [address] 82940- 1250 Jan, Mood disorder F39 [facility] [id number] [place] [address] 37134- 8664 Jan, BMI 45.0-49.9, adult Z68.42 and 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 [facility] [address], [place] [address] Jan, [facility] [id number] [place] [address] 10800- 9152 Jan, [facility] [address], [place] [address] 655[address] Jan, [facility] [id number] [place] [address] 64006- 8695 Jan, 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 [place] [address] 90221- 5512 Jan, [facility] [address] [id number] [place] [address] 29190- 2266 Jan, [place] [address] 76693- 8094 Jan, [place] [address] 64827- 1191 19 Jan, 2018 Allergic reaction to drug, initial encounter T78.40XA [place] [address] 07711- 9799 17 Jan, 2018 BMI 45.0-49.9, adult Z68.42 and Facial droop R29.810 [place] [address] 88819- 4286 14 Jan, 2018 Mood disorder F39 [place] [address] 41682- 2395 11 Jan, 2018 Dermatomyositis M33.90 and BMI 40.0-44.9, adult Z68.41 [place] [address] [place] [id number] [place] [address] 61921- 7587 10 Jan, 2018 [place] [address] [id number] [place] [address] 30629- 0963 05 Jan, 2018 [place] [address] [place] [id number] [place] [address] 45696- 6922 04 Jan, 2018 Irritation of left eye H57.8 and BMI 40.0-44.9, adult Z68.41 [place] [address] [place] [id number] [place] [address] 58846- 6288 Dec, Diabetes type 2, controlled E11.9 [place] [address] [place] [id number] [place] [address] 08777- 5980 Dec, Acute right ankle pain M25.571 [facility] [id number] [place] [address] 74071- 3974 Dec, Other chronic pain G89.29 ; Diabetes type 2, controlled E11.9 ; Gait disturbance R26.9 ; Weakness R53.1 and Muscle spasm M62.838 [facility] [address] [id number] [place] [address] 81533- 8753 Dec, Acute non-recurrent maxillary sinusitis J01.00 [facility] [address] 02927- 1691 Dec, [place] [address] 26726- 7590 Dec, [facility] [address] 77823- 6470 Dec, Acute non-recurrent maxillary sinusitis J01.00 [facility] [address] 75339- 1873 Dec, Lumbago with sciatica, right side M54.41 and Lupus erythematosus L93.0 [place] [address] 55635- 9245 Dec, Mood disorder F39 [facility] [address] 89403- 6253 Dec, Mood disorder F39 [facility] [address] 31724- 9620 Dec, [facility] [address] 23159- 1329 Dec, Acute right ankle pain M25.571 [facility] [address] 38302- 2049 Nov, Lumbar radiculopathy M54.16 [facility] [address] 09986- 4976 Nov, [facility] [address], [place] [address] 73[address] Nov, Mood disorder F39 [facility] [id number] [place] [address] 51547- 9819 Nov, Lumbago with sciatica, right side M54.41 and Other chronic pain G89.29 [facility] [address] [id number] [place] [address] 34442- 9145 Nov, Acute right ankle pain M25.571 [facility] [id number] [place] [address] 14516- 8881 Nov, [facility] [id number] [place] [address] 52072- 5662 Oct, [facility] [id number] [place] [address] 87135- 2358 Oct, Plantar wart of both feet B07.0 [facility] [id number] [place] [address] 99475- 4672 Oct, [facility] [id number] [place] [address] 74821- 2862 Oct, Acute right ankle pain M25.571 and Plantar wart of both feet B07.0 [facility] [id number] [place] [address] 52564- 6556 September, Other chronic pain G89.29 [facility] [id number] [place] [address] 37251- 9115 September, Other chronic pain G89.29 [facility] [id number] [place] [address] 37072- 1128 September, Other chronic pain G89.29 [facility] [id number] [address] 4917 Aug, Mood disorder F39 [facility] [id number] [place] [address] 55389- 1395 Aug, Other chronic pain G89.29 ; Controlled type 2 diabetes mellitus without complication, without long-term current use of insulin E11.9 ; Low back pain M54.5 and Tinea corporis B35.4 [place] [address] 82013- 6251 Aug, Mood disorder F39 and Anxiety F41.9 [place] [address] 98868- 3870 Aug, Mood disorder F39 and Anxiety F41.9 [place] [address] 62524- 8879 Jul, [facility] [place] [address] 78131 -9703 Jul, Scabies B86 and BMI 45.0-49.9, adult Z68.42 [place] [address] 14059- 0394 Jul, [place] [address] 90540- 1931 Jul, Mood disorder F39 and Anxiety F41.9 [place] [address] 22759- 0860 Jul, [facility] [place] [address] 43209 -9180 27 Jun, 2017 Bronchitis J40 ; Dark urine R82.99 and BMI 45.0-49.9, adult Z68.42 [place] [address] 12139- 9132 14 Jun, 2017 Acute pain of right shoulder M25.511 and Acute pain of right knee M25.561 [place] [address] 47036- 8777 May, BMI 40.0-44.9, adult Z68.41 ; Controlled type 2 diabetes mellitus without complication, without long-term current use of insulin E11.9 ; Muscle cramping R25.2 ; Hot flashes R23.2 ; Mood disorder F39 ; Anxiety F41.9 and Morbid (severe) obesity due to excess calories E66.01 [place] [address] [place] [address] 95269- 3670 May, BMI 40.0-44.9, adult Z68.41 ; Controlled type 2 diabetes mellitus without complication, without long-term current use of insulin E11.9 ; Muscle cramping R25.2 and Hot flashes R23.2 [place] [address] 81993- 2810 May, Tachycardia with heart rate 121-140 beats per minute R00.0 ; Morbid (severe) obesity due to excess calories E66.01 ; Diabetes type 2, controlled E11.9 and Enlarged thyroid gland E04.[address] 97506- 7552 May, Encounter for well woman exam with [...] Dysuria R30.0 and Screening breast examination Z12.31 [place] [address] [place] [id number] [place] [address] 28878- 3197 Apr, Mood disorder F39 ; Other chronic pain G89.29 and Anxiety F41.[address] 86696- 7118 Apr, Lumbago with sciatica, left side M54.42 and Other chronic pain G89.29 [place] [id number] [place] [address] 54276- 0279 Apr, Lupus erythematosus L93.0 [place] [address] [place] [id number] [place] [address] 00695 2546 Mar, Plantar wart of both feet B07.0 [facility] [id number] [place] [address] 22817 2546 Mar, Lupus erythematosus L93.0 and Sinus drainage J34.89 [facility] [address] 60213 2546 Mar, Mood disorder F39 ; Other chronic pain G89.29 and Anxiety F41.9 [facility] [id number] [place] [address] 25795 254 Mar, Mood disorder F39 ; Arthritis M19.90 and Plantar warts B07.0 [facility] [id number] [place] [address] 01851- 1986 Feb, Lupus erythematosus L93.0 [facility] [id number] [place] [address] 51451- 7636 Feb, Other chronic pain G89.29 [facility] [id number] [place] [address] 53224- 4466 Feb, Mood disorder F39 and Anxiety F41.9 [facility] [address] [id number] [place] [address] 33611- 3988 Jan, [facility] [address] [id number] [place] [address] 75940- 6639 Jan, Mood disorder F39 [facility] [id number] [place] [address] 06982- 5844 Dec, Nail, ingrown L60.0 [facility] [id number] [place] [address] 12998- 0546 Dec, Nail, ingrown L60.0 [facility] [id number] [place] [address] 46465- 2352 Nov, Mood disorder F39 and Anxiety F41.9 [facility] [id number] [place] [address] 51987- 6433 Nov, Sinus drainage J34.89 ; Hot flashes R23.2 ; Anxiety F41.9 and Diabetes type 2, controlled E11.9 [facility] [id number] [place] [address] 57039- 2284 Nov, Nail, ingrown L60.0 [facility] [id number] [place] [address] 33290- 5842 Oct, Anxiety F41.9 and Mood disorder F39 [facility] [id number] [place] [address] 92403- 5168 Oct, Nail, ingrown L60.0 and Anxiety F41.9 [facility] [id number] [place] [address] 80363- 7134 Oct, Lupus erythematosus L93.0 [facility] [id number] [place] [address] 59830- 7344 September, [facility] [id number] [place] [address] 48163- 4685 September, [facility] [id number] [place] [address] 08553- 7332 September, Lupus erythematosus L93.0 [facility] [id number] [place] [address] 70112- 2889 Aug, [facility] [id number] [place] [address] 35720- 6256 Aug, Mood disorder F39 and Anxiety F41.9 [facility] [id number] [place] [address] 93700- 1020 Aug, Lupus erythematosus L93.0 ; Diabetes type 2, controlled E11.9 and Localized edema R60.0 [facility] [id number] [place] [address] 53851- 1636 Aug, [facility] [id number] [place] [address] 04989- 8300 10 Jul, 2016 Anxiety F41.9 and Mood disorder F39 [facility] [address] [place] [id number] [place] [address] 94368- 2748 10 Jul, 2016 Diabetes type 2, controlled E11.9 [facility] [address] [place] [id number] [place] [address] 97454- 1008 13 Jun, 2016 Anxiety F41.9 [facility] [address] [place] [id number] [place] [address] 98771- 6316 May, [place] [address] [place] [id number] [place] [address] 10648- 6952 May, [place] [address] 86135- 7206 May, Nausea R11.0 ; Other chronic pain G89.29 and Pain in right knee M25.561 [place] [address] 29961- 4357 May, [place] [address] [place] [id number] [place] [address] 81606- 8206 Apr, Tear of medial meniscus of right knee, current, unspecified tear type, subsequent encounter S83.241D and Tear of lateral meniscus of right knee, current, unspecified tear type, subsequent encounter S83.281D [place] [address] [place] [id number] [place] [address] 44706- 2222 Apr, Anxiety F41.9 and Mood disorder F39 [facility] [address] [place] [id number] [place] [address] 75982- 7457 Apr, Anxiety F41.9 [place] [address] [place] [id number] [place] [address] 09885- 3418 Apr, [facility] [address] [place] [id number] [place] [address] 28867- 1853 Mar, [facility] [address] [place] [id number] [place] [address] 96373- 8213 Mar, Lupus erythematosus L93.0 and Diabetes type 2, controlled E11.9 [facility] [address] [id number] [place] [address] 13741- 4460 Mar, Mood disorder F39 [facility] [id number] [place] [address] 69601- 2547 Mar, Tear of lateral meniscus of right knee, current, unspecified tear type, initial encounter S83.281A and Osteoarthritis of right knee, unspecified osteoarthritis type M17.9 [facility] [address] [id number] [place] [address] 38394- 1398 Mar, [facility] [address] [id number] [place] [address] 62405- 4930 Feb, Mood disorder F39 [facility] [address] [place] [id number] [place] [address] 63556- 8874 Feb, Rash R21 [facility] [address] [id number] [place] [address] 89495- 4230 Feb, [facility] [address] [place] [id number] [place] [address] 29010- 0230 Jan, Other chronic pain G89.29 and Muscle spasm M62.838 [facility] [address] [place] [id number] [place] [address] 87548- 3031 Jan, Mood disorder F39 [facility] [address] [id number] [place] [address] 45991 2540 Jan, Pain in right knee M25.561 ; Other chronic pain G89.29 and Muscle spasm M62.838 [facility] [address] [place] [id number] [place] [address] 66066- 1726 Dec, [facility] [address] [place] [id number] [place] [address] 72355 254 Dec, [facility] [address] [place] [id number] [place] [address] 27546- 3644 Nov, [facility] [address] [place] [id number] [place] [address] 53029- 9188 Nov, Mood disorder F39 [place] [address] [place] [id number] [place] [address] 08684- 3087 Nov, Diabetes type 2, controlled E11.9 ; Bronchitis J40 ; Edema, unspecified type R60.9 ; Weight gain R63.5 and Right knee pain, unspecified chronicity M25.561 [place] [address] [place] [id number] [place] [address] 59310- 9738 Oct, Mood disorder F39 [place] [address] [place] [id number] [place] [address] 85001- 3852 Oct, Lupus erythematosus L93.0 and Bilateral edema of lower extremity R60.0 [place] [address] [place] [id number] [place] [address] 91844- 2367 Oct, Mood disorder F39 and Anxiety F41.9 [place] [address] [place] [id number] [place] [address] 83464- 6831 September, Mood disorder F39 ; Anxiety F41.9 and Anger reaction R45.4 [place] [address] [place] [id number] [place] [address] 95604- 8305 September, Diabetes type 2, controlled E11.9 ; Edema, unspecified type R60.9 and Fatigue, unspecified type R53.83 [place] [address] [place] [id number] [place] [address] 93697- 8550 Aug, Mood disorder F39 and Generalized anxiety disorder F41.1 [place] [address] [place] [id number] [place] [address] 96483- 9804 Aug, Diabetes type 2, controlled E11.9 ; Sinusitis J32.9 and Mood disorder F39 [place] [address] [place] [id number] [place] [address] 30397- 1228 Aug, Lupus erythematosus L93.0 [place] [address] [place] [id number] [place] [address] 57406- 8985 14 Aug, 2015 [facility] [address] [address]- 1167 07 Aug, 2015 [facility] [id number] [place] [address] 80007- 7266 Jul, Diabetes type 2, controlled E11.9 [facility] [address] [place] [address] 20283 2546 Jul, Mood disorder F39 and Depression F32.9 [facility] [address] [place] [id number] [place] [address] 37106- 5560 Jul, Lupus erythematosus L93.0 and Diabetes type 2, controlled E11.9 [facility] [address] [place] [id number] [place] [address] 59041- 4806 Jul, Mood disorder F39 and Anxiety F41.9 [facility] [address] [place] [id number] [place] [address] 86666- 7776 Jul, [facility] [id number] [place] [address] 51051- 7231 Jul, [facility] [address] [place] [id number] [place] [address] 72276- 6201 Jun, Mood disorder F39 and Anxiety F41.9 [facility] [address] [address]- 5716 Jun, Mood disorder F39 [facility] [id number] [place] [address] 36973 2546 18 Jun, 2015 [facility] [address] [address]- 3837 Jun, [facility] [address] [address]- 6821 08 Jun, 2015 Mood disorder F39 [facility] [address] [address]- 9026 Jun, [facility] [address] [id number] [address]- 0851 May, [facility] [address] [place] [id number] [place] [address] 98395- 4083 May, [facility] [address] [place] [id number] [place] [address] 54161- 9961 May, [facility] [address] [place] [id number] [place] [address] 07246- 1426 May, [facility] [address] [place] [id number] [place] [address] 67014- 0155 May, Anxiety F41.9 ; Dermatomyositis M33.90 and Diabetes type 2, controlled E11.9 [facility] [address] [place] [address] 08325 -1059 May, Sinusitis J32.9 and Cough R05 [facility] [address] [place] [id number] [place] [address] 71824- 3266 May, Mood disorder F39 [facility] [address] [place] [id number] [place] [address] 45135- 6816 May, Adjustment disorder with mixed anxiety and depressed mood F43.23 [facility] [id number] [place] [address] 07334- 7843 Apr, [facility] [id number] [place] [address] 14954- 9517 Apr, [facility] [id number] [place] [address] 64334- 8287 Apr, Generalized anxiety disorder F41.1 and Mood disorder F39 [facility] [id number] [place] [address] 11845- 6207 Mar, [facility] [id number] [place] [address] 71553- 3987 Mar, [facility] [id number] [place] [address] 45302- 5069 Mar, [facility] [address] [address] Mar, Mood disorder F39 [facility] [id number] [place] [address] 95764- 7774 Feb, [facility] [id number] [place] [address] 09834- 1878 Feb, Diabetes E11.9 and Bronchitis J40 [facility] [facility] [id number] [place] [address] 73702- 8552 Feb, [facility] [id number] [place] [address] 50744- 7181 Feb, [facility] [id number] [place] [address] 60153- 8194 Feb, Major depression, recurrent, full remission F33.42 and KELLY ( generalized anxiety disorder) F41.1 [facility] [id number] [place] [address] 13344- 1066 Feb, [facility] [id number] [place] [address] 22607- 0178 Feb, Single major depressive episode, in partial or unspecified remission F32.5 [facility] [id number] [place] [address] 72126- 5835 Jan, Fatigue 780.79 [facility] [id number] [place] [address] 07360- 7167 Jan, [facility] [id number] [place] [address] 35011- 3950 Jan, Diabetes with other specified manifestations, type II or unspecified type, not stated as uncontrolled 250.80 [facility] [id number] [place] [address] 886113- 0109 Jan, [facility] [id number] [place] [address] 16349- 1830 Dec, Hot flashes 627.2 ; Memory loss 780.93 and Joint pain 719.40 [facility] [facility] [address], [place] [address] Dec, Major depression, recurrent 296.30 ; Generalized anxiety disorder 300.02 ; Adjustment disorder with depressed mood 309.0 and No condition on Atkins II V71.09 [place] [id number] [place] [address] 61197- 4071 Dec, [place] [address] [place] [id number] [place] [address] 02800- 7933 Nov, Cognitive and neurobehavioral dysfunction 294.9 ; Major depressive disorder, recurrent episode, moderate degree 296.32 and Anxiety state , unspecified 300.00 [place] [id number] [place] [address] 70229- 1986 Nov, [place] [id number] [place] [address] 59103- 6556 Nov, Bronchitis 490 and Diabetes with other specified manifestations, type II or unspecified type, not stated as uncontrolled 250.80 [place] [id number] [place] [address] 67158- 0798 Nov, Major depressive disorder, recurrent episode, moderate 296.32 and Anxiety disorder, unspecified 300.[id number] [place] [address] 55208- 8603 Nov, Anxiety, generalized 300.02 ; Intermittent explosive disorder 312.34 ; No condition on Atkins II V71.09 and No condition on axis III V71.09 [place] [id number] [place] [address] 89793- 1296 Oct, Diabetes with other specified manifestations, type II or unspecified type, not stated as uncontrolled 250.80 ; Urinary tract infection, site not specified 599.0 and Bronchitis [id number] [place] [address] 47414- 9642 Oct, Intermittent explosive disorder 312.34 ; Bipolar 1 disorder , depressed, moderate 296.52 ; Major depression, chronic 296.20 ; No condition on Atkins II V71.09 and No condition on axis III V71.09 [facility] [address], [place] [address] Oct, Major depressive disorder, recurrent episode, moderate 296.32 ; Anxiety state 300.00 ; Cognitive decline 294.9 and No condition on Atkins II V71.09 [facility] [address], [place] [address] 1140 Oct, [facility] [address] [place] [address] [id number] [place] [address] 33778- 9475 Oct, Major depressive disorder, recurrent episode, moderate 296.32 ; Anxiety disorder, unspecified 300.00 and Persistent disorder of initiating or maintaining sleep 307.42 [place] [address] [place] [id number] [place] [address] 71848- 6794 September, Diabetes with other specified manifestations, type II or unspecified type, not stated as uncontrolled 250.80 ; Memory loss 780.93 and Cognitive complaints 799.59 [place] [address] [place] [address] [id number] [address] 1240 September, No condition on Atkins II V71.09 ; Major depression, recurrent 296.30 and Persistent mood [affective] disorder, unspecified 296.90 [place] [address], [place] [address]- 3792 Aug, [place] [address] [address] 1995 Aug, [facility] [address] [id number] [address] 9999 Aug, [facility] [address], [place] [address] 6820 Jul, [facility] [address] [place] [address] [id number] [place] [address] 57509- 4758 Jul, [facility] [address], [place] [address] 4963 Jul, [place] [address] [place] [id number] [address]- 0032 Jul, 2014 [facility] [place] [facility] [address] [id number] [place] [address]- 2428 Jul, 2014 [facility] [place] [facility] [address] [id number] [place] [address]- 1799 Jun, 2014 [facility] [place] [facility] [address] [id number] [place] [address]- 9367 Jun, 2014 [facility] [place] [facility] [address] [id number] [place] [address]- 3887 Jun, 2014 [facility] [place] [facility] [address] [id number] [place] [address]- 3791 Jun, 2014 [facility] [place] [facility] [address] [facility] [id number] [place] [address]- 8451 Jun, 2014 [facility] [place] [facility] [address] [facility] [id number] [place] [address]- 6333 Jun, 2014 [facility] [place] [facility] [address] [facility] [id number] [place] [address]- 3135 Jun, 2014 [facility] [place] [facility] [address] [facility] [id number] [place] [address]- 9073 Jun, 2014 [facility] [place] [facility] [address] [facility] [id number] [place] [address]- 6590 Jun, 2014 [facility] [place] [facility] [address] [facility] [id number] [address]- 4027 Jun, 2014 [facility] [place] [facility] [address] [facility] [id number] [place] [address]- 4380 Jun, 2014 [facility] [place] [facility] [address] [id number] [place] [address]- 8517 Jun, 2014 [facility] [place] [facility] [address] [facility] [id number] [place] [address]- 2417 Jun, 2014 [facility] [place] [facility] [address] [facility] [id number] [place] [address]- 9101 May, [facility] [place] [facility] [address] [id number] [place] [address]- 0478 May, [facility] [place] [facility] [address] [id number] [place] [address]- 5403 Apr, [facility] [place] [facility] [address] [id number] [place] [address]- 0906 Apr, [facility] [place] [facility] [address] [id number] [place] [address]- 3724 Apr, [facility] [place] [facility] [address] [id number] [place] [address]- 1054 Apr, [facility] [place] [facility] [address] [id number] [place] [address]- 5430 Apr, [facility] [place] [facility] [address] [id number] [place] [address]- 0616 Apr, [facility] [place] [facility] [address] [id number] [place] [address]- 4528 Apr, [facility] [place] [facility] [address] [id number] [place] [address]- 6908 Apr, [facility] [place] [facility] [address] [id number] [place] [address]- 9876 Apr, [facility] [place] [facility] [address] [id number] [place] [address]- 1767 Apr, [facility] [place] [facility] [address] [id number] [place] [address]- 4439 Apr, [facility] [place] [facility] [address] [id number] [place] [address]- 3316 Apr, [facility] [place] [facility] [address] [id number] [place] [address]- 2793 Apr, [facility] [place] [facility] [address] [id number] [place] [address]- 9329 Apr, [facility] [place] [facility] [address] [id number] [place] [address]- 4505 Apr, [facility] [place] [facility] [address] [id number] [place] [address]- 7145 Apr, [facility] [place] [facility] [address] [id number] [place] [address]- 4111 Apr, [facility] [place] [facility] [address] [id number] [place] [address]- 2553 Apr, [facility] [place] [facility] [address] [id number] [place] [address]- 6145 Apr, [facility] [place] [facility] [address] [id number] [place] [address]- 0809 Apr, [facility] [place] [facility] [address] [id number] [place] [address]- 7589 Mar, [facility] [place] [facility] [address] [id number] [place] [address]- 1799 Mar, [facility] [place] [facility] [address] [id number] [place] [address]- 6468 Mar, [facility] [place] [facility] [address] [id number] [place] [address]- 0839 Mar, [facility] [place] [facility] [address] [id number] [place] [address]- 3747 Mar, [facility] [place] [facility] [address] [id number] [place] [address]- 2707 Mar, [facility] [place] [facility] [address] [id number] [place] [address]- 3765 Mar, [facility] [place] [facility] [address] [id number] [place] [address]- 6871 Mar, [facility] [place] [facility] [address] [id number] [place] [address]- 1784 Mar, [facility] [place] [facility] [address] [id number] [place] [address]- 4260 Mar, [facility] [place] [facility] [address] [id number] [place] 2449 Mar, [facility] [place] [facility] [address] [id number] [place] [address]- 4688 Mar, [facility] [place] [facility] [address] [id number] [place] [address]- 7435 Mar, [facility] [place] [facility] [address] [id number] [place] [address]- 3767 Feb, [facility] [place] [facility] [address] [id number] [place] [address]- 7508 Feb, [facility] [place] [facility] [address] [id number] [place] [address]- 0305 Feb, [facility] [place] [facility] [address] [id number] [place] [address]- 1736 Feb, [facility] [place] [facility] [address] [id number] [place] [address]- 2119 Feb, [facility] [place] [facility] [address] [id number] [place] [address]- 3944 Feb, [facility] [place] [facility] [address] [id number] [place] [address]- 4705 Feb, [facility] [place] [facility] [address] [id number], [place] [address]- 9570 Feb, [facility] [place] [facility] [address] [id number], [place] [address]- 5298 Feb, [facility] [place] [facility] [address] [id number] [place] [address]- 1907 Feb, [facility] [place] [facility] [address] [id number], [place] [address]- 1197 Feb, [facility] [place] [facility] [address] [id number], [place] [address]- 6777 Feb, [facility] [place] [facility] [address] [id number] [place] [address]- 7404 Feb, [facility] [place] [facility] [address] [id number] [place] [address]- 6064 Feb, [facility] [place] [facility] [address] [id number] [place] [address]- 7080 Feb, [facility] [place] [facility] [address] [id number] [place] [address]- 8806 Jan, [facility] [place] [facility] [address] [id number] [place] [address]- 8729 08 Jan, 2014 [facility] [place] [facility] [address] [id number] [place] [address]- 1015 Jan, [facility] [place] [facility] [address] [id number] [place] [address]- 5360 Jan, [facility] [place] [facility] [address] [id number] [place] [address]- 4648 Jan, [facility] [place] [facility] [address] [id number] [place] [address]- 5878 Dec, [facility] [place] [facility] [address] [id number] [place] [address]- 1369 Dec, [facility] [place] [facility] [address] [id number] [place] [address]- 0995 Dec, [facility] [place] [facility] [address] [id number] [place] [address]- 1930 Dec, [facility] [place] [facility] [address] [id number] [place] [address]- 0779 Nov, [facility] [place] [facility] [address] [id number] [place] [address]- 8409 Nov, [facility] [place] [facility] [address] [id number] [place] [address]- 1598 Nov, [facility] [place] [facility] [address] [id number] [place] [address]- 8342 Nov, [facility] [place] [facility] [address] [id number] [place] [address]- 3815 Nov, 2013 [facility] [place] [facility] [address] [id number] [place] [address]- 0061 Nov, [facility] [place] [facility] [address] [id number] [place] [address]- 2050 Nov, [facility] [place] [facility] [address] [id number] [place] [address]- 9782 Nov, [facility] [place] [facility] [address] [id number] [place] [address]- 6659 Nov, [facility] [place] [facility] [address] [id number] [place] [address]- 2175 Nov, [facility] [place] [facility] [address] [id number] [place] [address]- 0732 Oct, [facility] [place] [facility] [address] [id number] [place] [address]- 6842 Oct, [facility] [place] [facility] [address] [id number] [place] [address]- 5780 September, [facility] [place] [facility] [address] [id number] [place] [address]- 5182 September, [facility] [place] [facility] [address] [id number] [place] [address]- 7293 September, [facility] [place] [facility] [address] [id number] [place] [address]- 4454 September, [facility] [place] [facility] [address] [id number] [place] [address]- 1727 16 Aug, 2013 [facility] [place] [facility] [address] [id number] [place] [address]- 2095 Aug, [facility] [place] [facility] [address] [id number] [place] [address]- 9100 Aug, [facility] [place] [facility] [address] [id number], [place] [address]- 5374 24 Jul, 2013 [facility] [place] [facility] [address] [id number] [place] [address]- 1629 24 Jul, 2013 [facility] [place] [facility] [address] [id number] [place] [address]- 5979 Jul, [facility] [place] [facility] [address] [id number] [place] [address]- 0209 Jul, [facility] [place] [facility] [address] [id number] [place] [address]- 1928 May, [facility] [place] [facility] [address] [id number] [place] [address]- 0957 May, [facility] [place] [facility] [address] [id number] [place] [address]- 1283 May, [facility] [place] [facility] [address] [id number] [place] [address]- 3483 Mar, [facility] [place] [facility] [address] [id number] [place] [address]- 7152 15 Mar, 2013 [facility] [place] [facility] [address] [id number] [place] [address]- 5831 Mar, [facility] [place] [facility] [address] [id number] [place] [address]- 1343 Mar, [facility] [place] [facility] [address] [id number], [place] [address]- 9549 16 Feb, 2013 [facility] [place] [facility] [address] [id number], [place] [address]- 6383 16 Feb, 2013 [facility] [place] [facility] [address] [id number], [place] [address]- 1667 04 Feb, 2013 [facility] [place] [facility] [address] [id number], [place] [address]- 7761 16 Jan, 2013 [facility] [place] [facility] [address] [id number] [place] [address]- 6237 12 Jan, 2013 [facility] [place] [facility] [address] [id number] [place] [address]- 2546 Jan, [facility] [address] [id number] [place] [address]- 9726 Dec, [facility] [address] [id number] [place] [address]- 9766 Dec, [facility] [address] [id number] [place] [address]- 8066 Dec, [facility] [address] [id number] [place] [address]- 9229 Dec, [facility] [address] [id number] [place] [address]- 8831 Nov, [facility] [address] [id number] [place] [address]- 1958 Oct, [facility] [address] [id number] [place] [address]- 7252 Oct, [facility] [address] [id number] [place] [address]- 0851 September, [facility] [address] [id number] [place] [address]- 6232 September, [facility] [address] [id number] [place] [address]- 1338 September, [facility] [address] [id number] [place] [address]- 7282 Aug, [facility] [address] [id number] [place] [address]- 0896 Aug, [facility] [place] [facility] [address] [id number] [place] [address]- 1299 Aug, [facility] [place] [facility] [address] [id number] [place] [address]- 2546 Aug, [facility] [place] [facility] [address] [id number] [place] [address]- 4374 Jul, [facility] [address] [id number] [place] [address]- 3460 25 Jul, 2012 [facility] [place] [facility] [address] [id number] [place] [address]- 0462 21 Jul, 2012 [facility] [place] [facility] [address] [id number] [place] [address]- 9212 15 Jul, 2012 [facility] [place] [facility] [address] [id number] [place] [address]- 9319 14 Jul, 2012 [facility] [place] [facility] [address] [id number] [place] [address]- 0329 Jul, [facility] [place] [facility] [address] [id number] [place] [address]- 7885 Jul, [facility] [place] [facility] [address] [id number] [place] [address]- 7602 06 Jun, 2012 [facility] [place] [facility] [address] [id number] [place] [address]- 3019 Jun, [facility] [place] [facility] [address] [id number] [place] [address]- 7712 05 Jun, 2012 [facility] [place] [facility] [address] [id number] [place] [address]- 3198 Jun, [facility] [place] [facility] [address] [id number] [place] [address]- 2853 May, [facility] [place] [facility] [address] [id number] [place] [address]- 9239 May, [facility] [place] [facility] [address] [id number] [place] [address]- 2593 May, [facility] [place] [facility] [address] [id number] [place] [address]- 1155 May, [facility] [place] [facility] [address] [id number] [place] [address]- 2239 May, [facility] [place] [facility] [address] [id number] [place] [address]- 8098 Apr, [facility] [place] [facility] [address] [id number] [place] [address]- 5963 Apr, [facility] [place] [facility] [address] [id number] [place] [address]- 2067 Mar, [facility] [place] [facility] [address] [id number] [place] [address]- 8355 Mar, [facility] [place] [facility] [address] [id number] [place] [address]- 1868 Mar, [facility] [place] [facility] [address] [id number] [place] [address]- 4507 Mar, [facility] [place] [facility] [address] [id number] [place] [address]- 0783 Mar, [facility] [place] [facility] [address] [facility] [id number] [place] [address]- 6443 Mar, [facility] [place] [facility] [address] [id number] [place] [address]- 2519 Mar, [facility] [place] [facility] [address] [id number] [place] [address]- 1943 Mar, [facility] [place] [facility] [address] [facility] [id number] [place] [address]- 0989 Mar, [facility] [place] [facility] [address] [id number] [place] [address]- 2037 Mar, [facility] [place] [facility] [address] [id number] [place] [address]- 6945 Feb, [facility] [place] [facility] [address] [id number] [place] [address]- 6496 Feb, [facility] [place] [facility] [address] [facility] [id number] [place] [address]- 3586 Feb, [facility] [place] [facility] [address] [id number] [place] [address]- 8818 Feb, [facility] [place] [facility] [address] [id number] [place] [address]- 5201 Feb, [facility] [place] [facility] [address] [id number] [place] [address]- 5567 Feb, [facility] [place] [facility] [address] [id number] [place] [address]- 2767 Feb, [facility] [place] [facility] [address] [id number] [place] [address]- 7966 Jan, [facility] [place] [facility] [address] [id number] [place] [address]- 2708 Jan, [facility] [place] [facility] [address] [id number] [place] [address]- 3255 Dec, [facility] [place] [facility] [address] [id number] [place] [address]- 8132 Dec, [facility] [place] [facility] [address] [id number] [place] [address] Dec, [facility] [place] [facility] [address] [id number] [place] [address] Dec, [facility] [place] [facility] [address] [id number] [place] [address] Dec, [facility] [place] [facility] [address] [id number] [place] [address] Dec, [facility] [place] [facility] [address] [id number] [place] [address] Nov, [facility] [place] [facility] [address] [id number] [place] [address] Nov, [facility] [place] [facility] [address] [id number] [place] [address] Nov, [facility] [place] [facility] [address] [id number] [place] [address] Nov, [facility] [place] [facility] [address] [id number], [place] [address] September, [facility] [id number] [place] [address] September, [facility] [id number], [place] [address] September, [facility] [id number], [place] [address] Jul, [facility] [id number], [place] [address] Jun, [facility] [id number] [place] [address] Jun, [facility] [id number] [place] [address] Jun, [facility] [id number] [place] [address] Apr, [facility] [id number], [place] [address] Mar, [facility] [id number] [place] [address] Mar, [facility] [id number] [address] Feb, [facility] [id number], [place] [address] Feb, [facility] [id number], [place] [address] Feb, [facility] [id number], [place] [address] Jul, [facility] [id number], [place] [address] Feb, IMMUNIZATIONS No Known Immunizations SOCIAL HISTORY Never Assessed REASON FOR VISIT Refill request PLAN OF CARE VITAL SIGNS MEDICATIONS Medication Instructions Dosage Frequency Start Date End Date Duration Status MetFORMIN HCl ER 500 mg Orally 2 times a day 1 tablet with evening meal 12h 05 Feb, 2018 30 day(s) Active RESULTS No Results PROCEDURES [...]
--- OUTSIDE RECORDS SUMMARY | 2018-05-09 22:38 | XMS REPORT ---
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 Phone SUNNY WONG Unavailable PROBLEMS Type Condition ICD9-CM Code LLR74-OS Code Onset Dates Condition Status SNOMED Code Problem Tachycardia with heart rate 121-140 beats per minute R00.0 Active 2971858 Problem Enlarged thyroid gland E04.9 Active 3984569 Problem Body mass index (BMI) of 45.0-49.9 in adult Z68.42 Active 032718111 Problem Other specified mental disorders due to known physiological condition F06.8 Active 12694711 Problem Mood disorder F39 Active 34110661 Problem Frequent falls R29.6 Active 683692546 Problem Allergic rhinitis due to pollen J30.1 Active 67548798 Problem Menopause Z78.0 Active 791511319 Problem Lumbago with sciatica, right side M54.41 Active 592170261 Problem Dermatomyositis M33.90 Active 432359147 Problem Facial droop R29.810 Active 93241897 Problem Gait disturbance R26.9 Active 97907121 Problem Anxiety F41.9 Active 83192266 Problem Other chronic pain G89.29 Active 97633675 Problem Diabetes type 2, controlled E11.9 Active 01400088 Problem Osteoarthritis of right knee, unspecified osteoarthritis type M17.9 Active 137081481 Problem Plantar wart of both feet B07.0 Active [id number] Problem Lumbago with sciatica, left side M54.42 Active 979693759 Problem Arthritis M19.90 Active 8446332 Problem Controlled type 2 diabetes mellitus without complication, without long -term current use of insulin E11.9 Active 990366161 Problem Plantar warts B07.0 Active 14235258 Problem Morbid (severe) obesity due to excess calories E66.01 Active 841791993 ALLERGIES No Information ENCOUNTERS Encounter Location Date Diagnosis [facility] [address] [address] Mar, [facility] [address] [place] [id number] [place] [address] 97848- 1497 Feb, [facility] [id number] [place] [address] 15727- 0215 Feb, [facility] [id number] [place] [address] 34387- 8763 Feb, [facility] [id number] [place] [address] 53239- 0944 Feb, [facility] [id number] [place] [address] 83174- 1405 Feb, BMI 45.0-49.9, adult Z68.42 ; Gait disturbance R26.9 ; Other specified mental disorders due to known physiological condition F06.8 ; Weakness R53.1 ; Frequent falls R29.6 and Self-care deficit for bathing R46.0 [facility] [id number] [place] [address] 48123- 8610 Feb, [facility] [id number] [place] [address] 92093- 2150 Jan, Mood disorder F39 [facility] [id number] [place] [address] 31882- 8062 27 Jan, 2018 BMI 45.0-49.9, adult Z68.42 and 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 [facility] [address], [place] [address] 4993 Jan, [facility] [id number] [place] [address] 52368- 0842 Jan, [facility] [id number] [place] [address] 22515- 3675 Jan, [facility] [id number] [place] [address] 92457- 3001 Jan, 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 [facility] [id number] [place] [address] 51240- 2713 Jan, [facility] [address] 35678- 5297 Jan, [facility] [id number] [place] [address] 90087- 0384 Jan, [facility] [address] 15507- 8110 19 Jan, 2018 Allergic reaction to drug, initial encounter T78.40XA [place] [address] 77991- 0706 17 Jan, 2018 BMI 45.0-49.9, adult Z68.42 and Facial droop R29.810 [place] [address] 54817- 9067 14 Jan, 2018 Mood disorder F39 [place] [address] 79899- 0676 11 Jan, 2018 Dermatomyositis M33.90 and BMI 40.0-44.9, adult Z68.41 [place] [address] 22225- 4023 10 Jan, 2018 [place] [address] 49709- 8025 05 Jan, 2018 [place] [address] 95958- 5673 04 Jan, 2018 Irritation of left eye H57.8 and BMI 40.0-44.9, adult Z68.41 [place] [address] 43977- 4387 Dec, Diabetes type 2, controlled E11.9 [place] [id number] [place] [address] 87839- 5961 30 Dec, 2017 Acute right ankle pain M25.571 [place] [address] [place] [address]- 0009 Dec, Other chronic pain G89.29 ; Diabetes type 2, controlled E11.9 ; Gait disturbance R26.9 ; Weakness R53.1 and Muscle spasm M62.838 [facility] [id number] [place] [address] 04084- 9108 Dec, Acute non-recurrent maxillary sinusitis J01.00 [facility] [id number] [place] [address] 15679- 0296 Dec, [facility] [address] 11890- 8491 Dec, [facility] [address] 21969- 6976 Dec, Acute non-recurrent maxillary sinusitis J01.00 [facility] [id number] [place] [address] 94276- 9814 Dec, Lumbago with sciatica, right side M54.41 and Lupus erythematosus L93.0 [facility] [id number] [place] [address] 23680- 1040 Dec, Mood disorder F39 [facility] [address] 36130- 4198 Dec, Mood disorder F39 [facility] [id number] [place] [address] 10944- 1409 Dec, [facility] [address] 43939- 1957 Dec, Acute right ankle pain M25.571 [facility] [address] 69373- 0862 Nov, Lumbar radiculopathy M54.16 [facility] [id number] [place] [address] 67376- 3978 Nov, [facility] [address] 33348- 4813 Nov, Mood disorder F39 [facility] [address], [place] [address] 3740 Nov, Lumbago with sciatica, right side M54.41 and Other chronic pain G89.29 [facility] [address], [place] [address]- 0117 Nov, Acute right ankle pain M25.571 [facility] [id number] [place] [address] 64682- 1183 Nov, [facility] [id number] [place] [address] 86967- 3131 Oct, [facility] [id number] [place] [address] 41590- 8785 Oct, Plantar wart of both feet B07.0 [facility] [id number] [place] [address] 71784- 4624 Oct, [facility] [id number] [place] [address] 78430- 2828 Oct, Acute right ankle pain M25.571 and Plantar wart of both feet B07.0 [facility] [address], [place] [address]- 7617 September, Other chronic pain G89.29 [facility] [address], [place] [address]- 6726 September, Other chronic pain G89.29 [facility] [address], [place] [address]- 0374 September, Other chronic pain G89.29 [facility] [id number] [place] [address] 14621- 0969 Aug, Mood disorder F39 [facility] [address], [place] [address]- 6262 Aug, Other chronic pain G89.29 ; Controlled type 2 diabetes mellitus without complication, without long-term current use of insulin E11.9 ; Low back pain M54.5 and Tinea corporis B35.4 [place] [address] 27154- 8025 Aug, Mood disorder F39 and Anxiety F41.9 [place] [address] 26103- 2297 Aug, Mood disorder F39 and Anxiety F41.9 [place] [address] 53786- 8633 Jul, [facility] [address] 65671 -9042 Jul, Scabies B86 and BMI 45.0-49.9, adult Z68.[address] 88655- 6415 Jul, [place] [address] 00525- 9836 Jul, Mood disorder F39 and Anxiety F41.[address] 17449- 2197 Jul, [facility] [place] [address] 19402 -2119 27 Jun, 2017 Bronchitis J40 ; Dark urine R82.99 and BMI 45.0-49.9, adult Z68.42 [place] [address] 00388- 5053 14 Jun, 2017 Acute pain of right shoulder M25.511 and Acute pain of right knee M25.[address] 03327- 9018 May, BMI 40.0-44.9, adult Z68.41 ; Controlled type 2 diabetes mellitus without complication, without long-term current use of insulin E11.9 ; Muscle cramping R25.2 ; Hot flashes R23.2 ; Mood disorder F39 ; Anxiety F41.9 and Morbid (severe) obesity due to excess calories E66.01 [place] [id number] [place] [address] 70077- 7885 May, BMI 40.0-44.9, adult Z68.41 ; Controlled type 2 diabetes mellitus without complication, without long-term current use of insulin E11.9 ; Muscle cramping R25.2 and Hot flashes R23.[address] 33964- 1698 May, Tachycardia with heart rate 121-140 beats per minute R00.0 ; Morbid (severe) obesity due to excess calories E66.01 ; Diabetes type 2, controlled E11.9 and Enlarged thyroid gland E04.[address] 35044- 3687 25 May, 2017 Encounter for well woman [...] and Screening breast examination Z12.31 [place] [id number] [place] [address] 29748- 1715 Apr, Mood disorder F39 ; Other chronic pain G89.29 and Anxiety F41.9 [place] [id number] [place] [address] 16628- 1552 Apr, Lumbago with sciatica, left side M54.42 and Other chronic pain G89.29 [place] [id number] [place] [address] 06869- 0922 Apr, Lupus erythematosus L93.[address] 46540- 0029 Mar, Plantar wart of both feet B07.0 [facility] [id number] [place] [address] 99663- 7159 Mar, Lupus erythematosus L93.0 and Sinus drainage J34.89 [facility] [id number] [place] [address] 70346- 6446 Mar, Mood disorder F39 ; Other chronic pain G89.29 and Anxiety F41.9 [facility] [id number] [place] [address] 99008- 0617 Mar, Mood disorder F39 ; Arthritis M19.90 and Plantar warts B07.0 [facility] [address] 79789- 1629 Feb, Lupus erythematosus L93.0 [facility] [id number] [place] [address] 69661- 8197 Feb, Other chronic pain G89.29 [facility] [id number] [place] [address] 35839- 9073 Feb, Mood disorder F39 and Anxiety F41.9 [facility] [id number] [place] [address] 62300- 4271 Jan, [facility] [id number] [place] [address] 38745- 0032 Jan, Mood disorder F39 [facility] [id number] [place] [address] 36372- 5423 Dec, Nail, ingrown L60.0 [facility] [id number] [place] [address] 45638- 7071 Dec, Nail, ingrown L60.0 [facility] [id number] [place] [address] 30221- 3973 Nov, Mood disorder F39 and Anxiety F41.9 [facility] [id number] [place] [address] 29382- 6891 Nov, Sinus drainage J34.89 ; Hot flashes R23.2 ; Anxiety F41.9 and Diabetes type 2, controlled E11.9 [facility] [id number] [place] [address] 73078- 7475 Nov, Nail, ingrown L60.0 [facility] [id number] [place] [address] 97326- 4783 Oct, Anxiety F41.9 and Mood disorder F39 [facility] [address] 33713- 3900 Oct, Nail, ingrown L60.0 and Anxiety F41.9 [facility] [address] 05678- 8339 Oct, Lupus erythematosus L93.0 [facility] [id number] [place] [address] 10867- 6311 September, [facility] [address] 25466- 8485 September, [facility] [id number] [place] [address] 89723- 8081 September, Lupus erythematosus L93.0 [facility] [id number] [place] [address] 75161- 1466 Aug, [facility] [id number] [place] [address] 04095- 9836 Aug, Mood disorder F39 and Anxiety F41.9 [facility] [id number] [place] [address] 08817- 6804 Aug, Lupus erythematosus L93.0 ; Diabetes type 2, controlled E11.9 and Localized edema R60.0 [facility] [id number] [place] [address] 93013- 8461 Aug, [facility] [id number] [place] [address] 13808- 0917 Jul, Anxiety F41.9 and Mood disorder F39 [place] [id number] [place] [address] 26727- 0614 10 Jul, 2016 Diabetes type 2, controlled E11.9 [place] [id number] [place] [address] 46606- 6133 Jun, Anxiety F41.9 [place] [id number] [place] [address] 00502- 6975 May, [place] [address] 29158- 7693 May, [place] [address] 88691- 7091 May, Nausea R11.0 ; Other chronic pain G89.29 and Pain in right knee M25.561 [place] [address] [id number] [place] [address] 21955- 2242 May, [place] [address] 55340- 2217 Apr, Tear of medial meniscus of right knee, current, unspecified tear type, subsequent encounter S83.241D and Tear of lateral meniscus of right knee, current, unspecified tear type, subsequent encounter S83.281D [place] [id number] [place] [address] 51848- 9290 Apr, Anxiety F41.9 and Mood disorder F39 [place] [address] [id number] [place] [address] 53104- 1457 Apr, Anxiety F41.9 [place] [address] [id number] [place] [address] 92495- 2365 Apr, [place] [id number] [place] [address] 15674- 4011 Mar, [place] [id number] [place] [address] 38106- 0076 Mar, Lupus erythematosus L93.0 and Diabetes type 2, controlled E11.9 [place] [id number] [place] [address] 40268- 8388 Mar, Mood disorder F39 [facility] [id number] [place] [address] 31020- 6006 Mar, Tear of lateral meniscus of right knee, current, unspecified tear type, initial encounter S83.281A and Osteoarthritis of right knee, unspecified osteoarthritis type M17.9 [facility] [id number] [place] [address] 44171- 2563 Mar, [facility] [id number] [place] [address] 00508- 5155 Feb, Mood disorder F39 [facility] [id number] [place] [address] 83652- 7526 Feb, Rash R21 [facility] [id number] [place] [address] 61080- 3990 Feb, [facility] [id number] [place] [address] 45345- 7659 Jan, Other chronic pain G89.29 and Muscle spasm M62.838 [facility] [id number] [place] [address] 69746- 8336 Jan, Mood disorder F39 [facility] [id number] [place] [address] 68574- 8473 Jan, Pain in right knee M25.561 ; Other chronic pain G89.29 and Muscle spasm M62.838 [facility] [address] [place] [address] 12279- 3783 Dec, [facility] [id number] [place] [address] 66560- 0596 Dec, [facility] [id number] [place] [address] 36531- 6800 Nov, [facility] [id number] [place] [address] 40934- 2034 Nov, Mood disorder F39 [facility] [id number] [place] [address] 09712- 2468 Nov, Diabetes type 2, controlled E11.9 ; Bronchitis J40 ; Edema, unspecified type R60.9 ; Weight gain R63.5 and Right knee pain, unspecified chronicity M25.561 [facility] [id number] [place] [address] 89271- 4701 Oct, Mood disorder F39 [facility] [address] 84590- 7604 Oct, Lupus erythematosus L93.0 and Bilateral edema of lower extremity R60.0 [place] [address] 26069- 1495 Oct, Mood disorder F39 and Anxiety F41.9 [place] [address] [id number] [place] [address] 53760- 3509 September, Mood disorder F39 ; Anxiety F41.9 and Anger reaction R45.4 [place] [address] [id number] [place] [address] 91190- 4160 September, Diabetes type 2, controlled E11.9 ; Edema, unspecified type R60.9 and Fatigue, unspecified type R53.83 [place] [address] [id number] [place] [address] 22513- 4829 Aug, Mood disorder F39 and Generalized anxiety disorder F41.1 [place] [address] [id number] [place] [address] 83188- 7018 Aug, Diabetes type 2, controlled E11.9 ; Sinusitis J32.9 and Mood disorder F39 [place] [address] [id number] [place] [address] 33478- 7860 Aug, Lupus erythematosus L93.0 [facility] [address] [id number] [place] [address] 60974- 4007 14 Aug, 2015 [facility] [address] 85795- 1466 Aug, [facility] [address] [facility] [id number] [address]- 3286 Jul, Diabetes type 2, controlled E11.9 [facility] [address] [facility] [id number] [address] 2546 Jul, Mood disorder F39 and Depression F32.9 [facility] [address] [id number] [place] [address] 39756 2546 Jul, Lupus erythematosus L93.0 and Diabetes type 2, controlled E11.9 [facility] [address] [facility] [id number] [place] [address] 75921 2546 Jul, Mood disorder F39 and Anxiety F41.9 [facility] [id number] [place] [address] 46685 2546 Jul, [facility] [address] [place] [id number] [place] [address] 62187- 0846 Jul, [facility] [id number] [place] [address] 75312- 2397 Jun, Mood disorder F39 and Anxiety F41.9 [facility] [address], [place] [address]- 3049 Jun, Mood disorder F39 [facility] [address], [place] [address]- 4416 Jun, [facility] [address], [place] [address] 2546 Jun, [facility] [address] [place] [id number] [address]- 9196 08 Jun, 2015 Mood disorder F39 [facility] [address] [place] [id number] 0896 Jun, [facility] [address], [place] [address]- 0386 May, [facility] [address], [place] [address]- 7100 May, [facility] [address] [place] [id number] [place] [address] 37030- 4758 May, [facility] [address] [id number] [place] [address] 17907- 7857 May, [facility] [address] [id number] [place] [address] 88821- 0839 May, Anxiety F41.9 ; Dermatomyositis M33.90 and Diabetes type 2, controlled E11.9 [facility] [address] [id number] [place] [address] 39811 -3910 May, Sinusitis J32.9 and Cough R05 [facility] [address] [id number] [place] [address] 00033- 0028 May, Mood disorder F39 [facility] [address] [id number] [place] [address] 69891- 8940 May, Adjustment disorder with mixed anxiety and depressed mood F43.23 [facility] [id number] [place] [address] 09206- 5704 Apr, [facility] [id number] [place] [address] 30203- 7761 Apr, [facility] [id number] [place] [address] 88872- 8136 Apr, Generalized anxiety disorder F41.1 and Mood disorder F39 [facility] [id number] [place] [address] [phone]- [phone] Mar, [facility] [id number] [place] [address] [phone] Mar, [facility] [id number] [place] [address] [phone] Mar, [facility] [id number] [place] [address] [id number]- [phone] Mar, Mood disorder F39 [place] [id number] [place] [address] [phone] Feb, [place] [address] 81859- 0960 Feb, Diabetes E11.9 and Bronchitis J40 [place] [address] 75894- 1223 Feb, [place] [address] 93661- 0961 Feb, [place] [address] 17396- 3796 Feb, Major depression, recurrent, full remission F33.42 and KELLY ( generalized anxiety disorder) F41.[address] 52956- 2617 Feb, [place] [address] 75982- 2594 Feb, Single major depressive episode, in partial or unspecified remission F32.[address] 33162- 7926 Jan, Fatigue 780.79 [place] [address] 17181- 4691 Jan, [place] [address] 09195- 2651 Jan, Diabetes with other specified manifestations, type II or unspecified type, not stated as uncontrolled 250.80 [place] [address] 30876- 0660 Jan, [address] 67099- 8838 Dec, Hot flashes 627.2 ; Memory loss 780.93 and Joint pain 719.[address] 01552- 9057 Dec, Major depression, recurrent 296.30 ; Generalized anxiety disorder 300.02 ; Adjustment disorder with depressed mood 309.0 and No condition on [place] V71.09 [place] [id number] [place] [address] [id number] Dec, [id number] [place] [address] [id number]- [phone] Nov, Cognitive and neurobehavioral dysfunction 294.9 ; Major depressive disorder, recurrent episode, moderate degree 296.32 and Anxiety state , unspecified [id number] [place], [place] [address] 64996- 9605 Nov, [id number] [place] [address] 60682- 3965 Nov, Bronchitis 490 and Diabetes with other specified manifestations, type II or unspecified type, not stated as uncontrolled 250.80 [id number] [place] [address] 40902- 1257 Nov, Major depressive disorder, recurrent episode, moderate 296.32 and Anxiety disorder, unspecified 300.[id number] [place] [address] 75956- 0306 Nov, Anxiety, generalized 300.02 ; Intermittent explosive disorder 312.34 ; No condition on [place] II V71.09 and No condition on axis III V71.09 [id number] [place] [address] 09826- 6606 Oct, Diabetes with other specified manifestations, type II or unspecified type, not stated as uncontrolled 250.80 ; Urinary tract infection, site not specified 599.0 and Bronchitis [id number] [place] [address] 67980- 0997 Oct, Intermittent explosive disorder 312.34 ; Bipolar 1 disorder , depressed, moderate 296.52 ; Major depression, chronic 296.20 ; No condition on [place] II V71.09 and No condition on axis III V71.09 [id number] [id number] [address] 15 Oct, 2014 Major depressive disorder, recurrent episode, moderate 296.32 ; Anxiety state 300.00 ; Cognitive decline 294.9 and No condition on [place] II V71.09 [facility] [id number] [place] [address] [id number] 9098 Oct, [facility] [id number] [place] [address] 257347- 0454 Oct, Major depressive disorder, recurrent episode, moderate 296.32 ; Anxiety disorder, unspecified 300.00 and Persistent disorder of initiating or maintaining sleep 307.42 [facility] [id number] [place] [address] 201935- 7679 September, Diabetes with other specified manifestations, type II or unspecified type, not stated as uncontrolled 250.80 ; Memory loss 780.93 and Cognitive complaints 799.59 [facility] [id number] [place] [address] 96830- 4829 September, No condition on [place] II V71.09 ; Major depression, recurrent 296.30 and Persistent mood [affective] disorder, unspecified 296.90 [facility] [id number] [place] [address] 66917- 1204 Aug, [facility] [id number] [place] [address] 12544- 1848 Aug, [facility] [id number] [place] [address] 90596- 9972 Aug, [facility] [id number] [place] [address] [id number]- 2563 Jul, [facility] [id number] [place] [address] [id number]- 1915 Jul, [facility] [id number] [place] [address] 397058- 7074 Jul, [facility] [id number] [place] [address] 767471- 5017 Jul, [facility] [place] [facility] [address] [id number] [place] [address]- 3236 Jul, 2014 [facility] [place] [facility] [address] [id number] [place] [address]- 3870 Jun, 2014 [facility] [place] [facility] [address] [id number] [place] [address]- 3652 Jun, 2014 [facility] [place] [facility] [address] [id number] [place] [address]- 1585 Jun, 2014 [facility] [place] [facility] [address] [id number] [place] [address]- 6943 Jun, 2014 [facility] [place] [facility] [address] [id number] [place] [address]- 8773 Jun, 2014 [facility] [place] [facility] [address] [facility] [id number] [place] [address]- 4893 Jun, 2014 [facility] [place] [facility] [address] [id number] [place] [address]- 9066 Jun, 2014 [facility] [place] [facility] [address] [id number] [place] [address]- 9530 Jun, 2014 [facility] [place] [facility] [address] [facility] [id number] [place] [address]- 4070 Jun, 2014 [facility] [place] [facility] [address] [facility] [id number] [place] [address]- 5346 Jun, 2014 [facility] [place] [facility] [address] [id number] [place] [address]- 2547 Jun, 2014 [facility] [place] [facility] [address] [id number] [place] [address]- 7850 Jun, 2014 [facility] [place] [facility] [address] [id number] [place] [address]- 9147 Jun, 2014 [facility] [place] [facility] [address] [facility] [id number] [place] [address]- 6749 May, [facility] [place] [facility] [address] [id number] [place] [address]- 6179 May, [facility] [address] [id number] [place] [address]- 5501 Apr, [facility] [place] [facility] [address] [id number] [place] [address]- 8596 Apr, [facility] [address] [id number] [place] [address]- 7144 Apr, [facility] [address] [id number] [place] [address]- 6077 Apr, [facility] [address] [id number] [place] [address]- 5545 Apr, [facility] [address] [id number] [place] [address]- 4803 Apr, [facility] [address] [id number] [place] [address]- 3289 Apr, [facility] [address] [id number] [place] [address]- 5741 Apr, [facility] [address] [id number] [place] [address]- 2205 Apr, [facility] [address] [id number] [place] [address]- 1569 Apr, [facility] [place] [facility] [address] [id number] [place] [address]- 1330 Apr, [facility] [address] [id number] [place] [address]- 5841 Apr, [facility] [place] [facility] [address] [id number] [place] [address]- 8589 Apr, [facility] [place] [facility] [address] [id number] [place] [address]- 8434 Apr, [facility] [place] [facility] [address] [id number] [place] 5292 Apr, [facility] [place] [facility] [address] [id number] [place] [address]- 9795 Apr, [facility] [place] [facility] [address] [id number] [place] [address]- 4846 Apr, [facility] [place] [facility] [address] [id number] [place] [address]- 0325 Apr, [facility] [place] [facility] [address] [id number] [place] [address]- 4845 Apr, [facility] [place] [facility] [address] [id number] [place] [address]- 6639 Apr, [facility] [place] [facility] [address] [id number] [place] [address]- 4508 Mar, [facility] [place] [facility] [address] [id number] [place] [address]- 1668 Mar, [facility] [place] [facility] [address] [id number] [place] [address]- 9162 Mar, [facility] [place] [facility] [address] [id number] [place] [address]- 4855 Mar, [facility] [place] [facility] [address] [id number], [place] [address]- 2501 Mar, [facility] [place] [facility] [address] [id number], [place] [address]- 7882 Mar, [facility] [place] [facility] [address] [id number], [place] [address]- 9999 Mar, [facility] [place] [facility] [address] [id number] [place] [address]- 3951 Mar, [facility] [place] [facility] [address] [id number], [place] [address]- 9497 Mar, [facility] [place] [facility] [address] [id number], [place] [address]- 0132 Mar, [facility] [place] [facility] [address] [id number], [place] [address]- 5247 Mar, [facility] [place] [facility] [address] [id number] [place] [address]- 1436 Mar, [facility] [place] [facility] [address] [id number], [place] [address]- 7102 Mar, [facility] [place] [facility] [address] [id number] [place] [address]- 5170 Feb, [facility] [place] [facility] [address] [id number] [place] [address]- 5280 Feb, [facility] [place] [facility] [address] [id number] [place] [address]- 3161 Feb, [facility] [place] [facility] [address] [id number] [place] [address]- 5141 Feb, [facility] [place] [facility] [address] [id number], [place] [address]- 2770 Feb, [facility] [place] [facility] [address] [id number] [place] [address]- 9053 Feb, [facility] [place] [facility] [address] [id number] [place] [address]- 6026 Feb, [facility] [place] [facility] [address] [facility] [id number], [place] [address]- 2292 Feb, [facility] [place] [facility] [address] [id number], [place] [address]- 2684 Feb, [facility] [place] [facility] [address] [id number], [place] [address]- 3469 Feb, [facility] [place] [facility] [address] [id number], [place] [address]- 6996 Feb, [facility] [place] [facility] [address] [facility] [id number], [place] [address]- 2867 Feb, [facility] [place] [facility] [address] [facility] [id number], [place] [address]- 0579 10 Feb, 2014 [facility] [place] [facility] [address] [id number] [place] [address]- 0932 07 Feb, 2014 [facility] [place] [facility] [address] [id number] [place] [address]- 2906 Feb, [facility] [place] [facility] [address] [id number] [place] [address]- 8176 Jan, 2013 [facility] [place] [facility] [address] [id number] [place] [address]- 2916 08 Jan, 2013 [facility] [place] [facility] [address] [id number] [place] [address]- 1996 08 Jan, 2014 [facility] [place] [facility] [address] [id number] [place] [address]- 1956 Jan, [facility] [place] [facility] [address] [id number] [place] [address]- 8627 Jan, [facility] [place] [facility] [address] [id number] [place] [address]- 8274 Dec, [facility] [place] [facility] [address] [id number] [place] [address]- 6468 Dec, [facility] [place] [facility] [address] [id number] [place] [address]- 1536 Dec, [facility] [place] [facility] [address] [id number] [place] [address]- 1239 Dec, [facility] [place] [facility] [address] [id number] [place] [address]- 1174 Nov, [facility] [place] [facility] [address] [id number] [place] [address]- 7638 Nov, [facility] [place] [facility] [address] [id number] [place] [address]- 0206 Nov, [facility] [place] [facility] [address] [id number] [place] [address]- 3466 Nov, [facility] [place] [facility] [address] [id number] [place] [address]- 5787 Nov, [facility] [place] [facility] [address] [id number] [place] [address]- 3480 Nov, [facility] [place] [facility] [address] [id number] [place] [address]- 7199 Nov, [facility] [place] [facility] [address] [id number] [place] [address]- 5507 Nov, [facility] [place] [facility] [address] [id number] [place] [address]- 4433 Nov, [facility] [place] [facility] [address] [id number] [place] [address]- 6573 Nov, [facility] [place] [facility] [address] [id number] [place] [address]- 4526 Oct, [facility] [place] [facility] [address] [id number] [place] [address]- 5657 Oct, [facility] [place] [facility] [address] [id number] [place] [address]- 4184 September, [facility] [place] [facility] [address] [id number] [place] [address]- 6019 September, [facility] [place] [facility] [address] [id number] [place] [address]- 7793 September, [facility] [place] [facility] [address] [id number] [place] [address]- 8762 September, [facility] [place] [facility] [address] [id number] [place] [address]- 8588 Aug, [facility] [place] [facility] [address] [id number] [place] [address]- 3421 Aug, [facility] [place] [facility] [address] [id number] [place] [address]- 2886 Aug, [facility] [place] [facility] [address] [id number] [place] [address]- 2725 Jul, [facility] [place] [facility] [address] [id number] [place] [address]- 4637 24 Jul, 2013 [facility] [place] [facility] [address] [id number] [place] [address]- 4667 14 Jul, 2013 [facility] [place] [facility] [address] [id number] [place] [address]- 5126 14 Jul, 2013 [facility] [place] [facility] [address] [id number] [place] [address]- 0784 20 May, 2013 [facility] [place] [facility] [address] [id number] [place] [address]- 3626 17 May, 2013 [facility] [place] [facility] [address] [id number] [place] [address]- 3177 17 May, 2013 [facility] [place] [facility] [address] [id number] [place] [address]- 2216 15 Mar, 2013 [facility] [place] [facility] [address] [id number] [place] [address]- 7768 15 Mar, 2013 [facility] [place] [facility] [address] [id number] [place] [address]- 5823 Mar, [facility] [place] [facility] [address] [id number] [place] [address]- 4046 Mar, [facility] [place] [facility] [address] [facility] [id number] [place] [address]- 0618 16 Feb, 2013 [facility] [place] [facility] [address] [id number] [place] [address]- 0999 16 Feb, 2013 [facility] [place] [facility] [address] [id number] [place] [address]- 4843 04 Feb, 2013 [facility] [place] [facility] [address] [id number] [place] [address]- 2494 16 Jan, 2013 [facility] [place] [facility] [address] [id number] [place] [address]- 2672 12 Jan, 2013 [facility] [place] [facility] [address] [id number] [place] 9273 Jan, [facility] [place] [facility] [address] [id number] [place] [address]- 5520 Dec, [facility] [address] [id number] [place] [address]- 7824 Dec, [facility] [address] [id number] [place] [address]- 1412 Dec, [facility] [address] [id number] [place] [address]- 9485 Dec, [facility] [address] [id number] [place] [address]- 3264 Nov, [facility] [address] [id number] [place] [address]- 6419 Oct, [facility] [address] [id number] [place] [address]- 9419 Oct, [facility] [address] [id number] [place] [address]- 4521 September, [facility] [address] [id number] [place] [address]- 8190 September, [facility] [address] [id number] [place] [address]- 3512 September, [facility] [address] [id number] [place] [address]- 0921 Aug, [facility] [address] [id number] [place] [address]- 6717 Aug, [facility] [address] [id number] [place] [address]- 2054 Aug, [facility] [place] [facility] [address] [id number] [place] [address]- 9610 Aug, [facility] [address] [id number] [place] [address]- 5084 Jul, [facility] [address] [id number] [place] [address]- 5213 25 Jul, 2012 [facility] [address] [id number] [place] [address]- 6177 21 Jul, 2012 [facility] [address] [id number] [place] [address]- 3986 15 Jul, 2012 [facility] [address] [id number] [place] [address]- 7179 14 Jul, 2012 [facility] [address] [id number] [place] [address]- 5022 13 Jul, 2012 [facility] [address] [id number] [place] [address]- 5500 Jul, [facility] [address] [id number] [place] [address]- 7756 06 Jun, 2012 [facility] [address] [id number] [place] [address]- 8669 Jun, [facility] [place] [facility] [address] [id number] [place] [address]- 1206 05 Jun, 2012 [facility] [address] [id number] [place] [address]- 1448 Jun, [facility] [address] [facility] [id number] [place] [address]- 3971 May, [facility] [address] [id number] [place] [address]- 1674 May, [facility] [place] [facility] [address] [id number] [place] [address]- 0216 May, [facility] [place] [facility] [address] [id number] [place] [address]- 8844 29 May, 2012 [facility] [place] [facility] [address] [id number] [place] [address]- 1980 May, [facility] [place] [facility] [address] [facility] [id number] [place] [address]- 5655 Apr, [facility] [place] [facility] [address] [id number] [place] [address]- 3831 Apr, [facility] [place] [facility] [address] [id number] [place] [address]- 6464 Mar, [facility] [place] [facility] [address] [id number] [place] [address]- 7386 Mar, [facility] [place] [facility] [address] [id number] [place] [address]- 0464 Mar, [facility] [place] [facility] [address] [id number] [place] [address]- 2094 Mar, [facility] [place] [facility] [address] [id number] [place] [address]- 2516 Mar, [facility] [place] [facility] [address] [id number] [place] [address]- 9014 Mar, [facility] [place] [facility] [address] [id number] [place] [address]- 7782 Mar, [facility] [place] [facility] [address] [id number] [place] [address]- 6732 Mar, [facility] [place] [facility] [address] [id number] [place] [address]- 7841 Mar, [facility] [place] [facility] [address] [id number] [place] [address]- 5910 Mar, [facility] [place] [facility] [address] [id number] [place] [address]- 9868 Feb, [facility] [place] [facility] [address] [id number] [place] [address]- 5151 Feb, [facility] [place] [facility] [address] [id number] [place] [address]- 0198 Feb, [facility] [place] [facility] [address] [id number] [place] [address]- 5480 Feb, [facility] [place] [facility] [address] [id number] [place] [address]- 8001 Feb, [facility] [place] [facility] [address] [id number] [place] [address]- 9885 Feb, [facility] [place] [facility] [address] [id number] [place] [address]- 3759 Feb, [facility] [place] [facility] [address] [id number] [place] [address]- 2747 Jan, [facility] [place] [facility] [address] [id number] [place] [address]- 7648 Jan, [facility] [place] [facility] [address] [id number] [place] [address]- 4511 Dec, [facility] [place] [facility] [address] [id number] [place] [address]- 2148 Dec, [facility] [place] [facility] [address] [id number] [place] [address]- 8850 Dec, [facility] [place] [facility] [address] [id number] [place] [address]- 1423 Dec, [facility] [place] [facility] [address] [id number] [place] [address]- 1034 Dec, [facility] [place] [facility] [address] [id number] [place] [address]- 4471 Dec, [facility] [place] [facility] [address] [id number], [place] [address]- 2529 Nov, [facility] [place] [facility] [address] [id number], [place] [address]- 2373 Nov, [facility] [place] [facility] [address] [id number] [place] [address]- 0555 Nov, [facility] [place] [facility] [address] [id number], [place] [address] Nov, [facility] [place] [facility] [address] [id number] [place] [address] September, [facility] [place] [facility] [id number], [place] [address] September, [facility] [id number], [place] [address] September, [facility] [id number], [place] [address] Jul, [facility] [id number], [place] [address] Jun, [facility] [id number], [place] [address] Jun, [facility] [id number] [place] [address] Jun, [facility] [address] [id number], [place] [address] Apr, [facility] [id number] [place] [address] Mar, [facility] [id number] [address] Mar, [facility] [id number] [place] [address] Feb, [facility] [id number] [address] Feb, [facility] [id number] [address] Feb, [facility] [id number], [place] [address] Jul, [facility] [id number], [place] [address] Feb, IMMUNIZATIONS No Known Immunizations SOCIAL HISTORY Never Assessed REASON FOR VISIT f/u PLAN OF CARE Activity Details Follow Up Next Available Reason: F/U VITAL SIGNS MEDICATIONS Unknown Medications RESULTS No Results PROCEDURES Procedure Date Ordered Result Body Site Psychotherapy, patient &/family, 45 minutes, established patient Feb 23, 2018 INSTRUCTIONS MEDICATIONS ADMINISTERED No Known Medications MEDICAL (GENERAL) HISTORY Type Description Date Medical History type II diabetes-dx'd 12/2010 Medical History dysfunctional uterine bleeding--endometrial bx 12/2010 Medical History asthma Medical History hypertension Medical History obesity Medical History anxiety Medical History autoimmune disease Surgical History x1 Hospitalization History child Hospitalization History Asthma
--- OUTSIDE RECORDS SUMMARY | 2018-05-09 22:39 | XMS REPORT ---
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
[2018-05-09 22:40] LABS: BASOPHILS % (AUTO) 0 % (0-10); EOSINOPHILS % (AUTO) 0 % (0-10); HEMATOCRIT 38 % (35-52); HEMOGLOBIN 13.3 G/DL (11.5-16.0); LYMPHOCYTES # (AUTO) 1.7 X 10^3 (1.0-4.0); LYMPHOCYTES % (AUTO) 19 % (12-44); MEAN CORPUSCULAR HEMOGLOBIN 28 PG (25-34); MEAN CORPUSCULAR HGB CONC 35 G/DL (32-36); MEAN CORPUSCULAR VOLUME 81 FL (80-99); MEAN PLATELET VOLUME 9.8 FL (7.4-10.4); MONOCYTES # (AUTO) 0.5 X 10^3 (0.0-1.0); MONOCYTES % (AUTO) 6 % (0-12); NEUTROPHILS # (AUTO) 6.9 X 10^3 (1.8-7.8); NEUTROPHILS % (AUTO) 76 % (42-75); PLATELET COUNT 231 10^3/uL (130-400); RED BLOOD COUNT 4.74 10^6/uL (4.35-5.85); RED CELL DISTRIBUTION WIDTH 16.6 % (10.0-14.5); WHITE BLOOD COUNT 9.1 10^3/uL (4.3-11.0)
--- OUTSIDE RECORDS SUMMARY | 2018-05-09 22:40 | XMS REPORT ---
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 Name Role Phone MACY TAMAYO Unavailable PROBLEMS Type Condition ICD9-CM Code JKT89-EM Code Onset Dates Condition Status SNOMED Code Problem Controlled type 2 diabetes mellitus without complication, without long -term current use of insulin E11.9 Active 887565504 Problem Body mass index (BMI) of 45.0-49.9 in adult Z68.42 Active 941686321 Problem Tachycardia with heart rate 121-140 beats per minute R00.0 Active 0533254 Problem Facial droop R29.810 Active 59654025 Problem Menopause Z78.0 Active 296562356 Problem Gait disturbance R26.9 Active 24148445 Problem Dermatomyositis M33.90 Active 043748789 Problem Enlarged thyroid gland E04.9 Active 5811377 Problem Lumbago with sciatica, right side M54.41 Active 489530812 Problem Morbid (severe) obesity due to excess calories E66.01 Active 207982885 Problem Diabetes type 2, controlled E11.9 Active 83583833 Problem Osteoarthritis of right knee, unspecified osteoarthritis type M17.9 Active 346891974 Problem Allergic rhinitis due to pollen J30.1 Active 81184831 Problem Mood disorder F39 Active 20993598 Problem Arthritis M19.90 Active 0189408 Problem Plantar warts B07.0 Active 10908088 Problem Anxiety F41.9 Active 94915023 Problem Plantar wart of both feet B07.0 Active [id number] Problem Other chronic pain G89.29 Active 83235192 Problem Lumbago with sciatica, left side M54.42 Active 458323166 ALLERGIES No Information ENCOUNTERS Encounter Location Date Diagnosis [facility] [address] [facility] [id number] [address] Mar, [facility] [address] [facility] [id number] [place] [address] 82491- 6996 Feb, [facility] [id number] [place] [address] 28039- 9693 Feb, [facility] [id number] [place] [address] 16063- 0613 [address], [address] [facility] [address] 65519- 3367 Jan, [facility] [address] 37413- 6824 [address], [address] [facility] [address] 66821- 1262 [address], [address] [facility] [address] 10438- 9177 [address], [address] 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 [id number] [place] [address] 43737- 4328 Jan, [facility] [address] 60508- 2957 Jan, [facility] [id number] [place] [address] 38473- 1542 [address] [facility] [address] 78638- 9075 19 Jan, 2018 Allergic reaction to drug, initial encounter T78.40XA [facility] [id number] [place] [address] 90466- 2716 17 Jan, 2018 BMI 45.0-49.9, adult Z68.42 and Facial droop R29.810 [facility] [id number] [place] [address] 15368- 2907 14 Jan, [address] [facility] [address] 41373- 3631 Jan, Dermatomyositis M33.90 and BMI 40.0-44.9, adult Z68.41 [place] [address] 49741- 5548 10 Jan, 2018 [place] [address] [id number] [place] [address] 48956- 9703 05 Jan, 2018 [place] [address] 22277- 5600 04 Jan, 2018 Irritation of left eye H57.8 and BMI 40.0-44.9, adult Z68.41 [place] [address] 73229- 4937 Dec, Diabetes type 2, controlled E11.9 [place] [address] 12862- 5674 Dec, Acute right ankle pain M25.571 [place] [address] 81469- 0238 Dec, Other chronic pain G89.29 ; Diabetes type 2, controlled E11.9 ; Gait disturbance R26.9 ; Weakness R53.1 and Muscle spasm M62.838 [place] [address] [id number] [place] [address] 61942- 6261 Dec, Acute non-recurrent maxillary sinusitis J01.00 [place] [address] [id number] [place] [address] 21334- 0504 Dec, [place] [address] [id number] [place] [address] 68154- 9597 Dec, [place] [address] 93711- 6749 Dec, Acute non-recurrent maxillary sinusitis J01.00 [place] [address] [id number] [place] [address] 75345- 3636 Dec, Lumbago with sciatica, right side M54.41 and Lupus erythematosus L93.0 [facility] [address] [address] 7[address] Dec, Mood disorder F39 [facility] [id number] [place] [address] 95089- 4122 Dec, Mood disorder F39 [facility] [id number] [place] [address] 58061- 7794 Dec, [facility] [id number] [place] [address] 68424- 7846 Dec, Acute right ankle pain M25.571 [facility] [id number] [place] [address] 63326- 9094 Nov, Lumbar radiculopathy M54.16 [facility] [id number] [place] [address] 78116- 3810 Nov, [facility] [id number] [place] [address] 45669- 1505 Nov, Mood disorder F39 [facility] [id number] [place] [address] 72357- 8428 Nov, Lumbago with sciatica, right side M54.41 and Other chronic pain G89.29 [facility] [id number] [place] [address] 01207- 6821 Nov, Acute right ankle pain M25.571 [facility] [id number] [place] [address] 84465- 2958 Nov, [facility] [id number] [place] [address] 68260- 2712 Oct, [facility] [id number] [place] [address] 63761- 9684 Oct, Plantar wart of both feet B07.0 [facility] [address] [address] Oct, [facility] [id number] [place] [address] 83287- 3018 Oct, Acute right ankle pain M25.571 and Plantar wart of both feet B07.0 [place] [id number] [place] [address] 25877- 8836 September, Other chronic pain G89.29 [place] [address] 59535- 7048 September, Other chronic pain G89.29 [place] [address] 83125- 4539 September, Other chronic pain G89.29 [place] [address] 42232- 6109 Aug, Mood disorder F39 [place] [address] 81542- 3943 Aug, Other chronic pain G89.29 ; Controlled type 2 diabetes mellitus without complication, without long-term current use of insulin E11.9 ; Low back pain M54.5 and Tinea corporis B35.4 [place] [address] 48669- 1854 Aug, Mood disorder F39 and Anxiety F41.9 [place] [id number] [place] [address] 12580- 9590 Aug, Mood disorder F39 and Anxiety F41.9 [place] [id number] [place] [address] 54848- 1867 Jul, [facility] [id number] [place] [address] 68223 -9400 Jul, Scabies B86 and BMI 45.0-49.[address], [address] [facility] [id number] [place] [address] 46239- 5142 Jul, [place] [address] 82348- 6976 Jul, Mood disorder F[address] [facility] [id number] [place] [address] 40380- 3534 Jul, [facility] [id number] [place] [address] 84680 -9519 27 Jun, 2017 Bronchitis J40 ; Dark urine R82.99 and BMI 45.0-49.9, adult Z68.42 [place] [id number] [place] [address] 07337- 1260 14 Jun, 2017 Acute pain of right shoulder M25.511 and Acute pain of right knee M25.561 [place] [address] 31312- 3095 May, BMI 40.0-44.9, adult Z68.41 ; Controlled type 2 diabetes mellitus without complication, without long-term current use of insulin E11.9 ; Muscle cramping R25.2 ; Hot flashes R23.2 ; Mood disorder F39 ; Anxiety F41.9 and Morbid (severe) obesity due to excess calories E66.01 [place] [id number] [place] [address] 52320- 4360 May, BMI 40.0-44.9, adult Z68.41 ; Controlled type 2 diabetes mellitus without complication, without long-term current use of insulin E11.9 ; Muscle cramping R25.2 and Hot flashes R23.2 [place] [id number] [place] [address] 56236- 4426 May, Tachycardia with heart rate 121-140 beats per minute R00.0 ; Morbid (severe) obesity due to excess calories E66.01 ; Diabetes type 2, controlled E11.9 and Enlarged thyroid gland E04.9 [place] [id number] [place] [address] 50446- 6045 May, Encounter for well woman exam with [...] Dysuria R30.0 and Screening breast examination Z12.31 [place] [id number] [place] [address] 57766- 1565 Apr, Mood disorder F39 ; Other chronic pain G89.29 and Anxiety F41.9 [place] [id number] [place] [address] 19476- 0262 Apr, Lumbago with sciatica, left side M54.42 and Other chronic pain G89.29 [place] [id number] [place] [address] 49680- 0196 Apr, Lupus erythematosus L93.0 [place] [id number] [place] [address] 55873- 2009 Mar, Plantar wart of both feet B07.0 [place] [id number] [place] [address] 61603- 6440 Mar, Lupus erythematosus L93.0 and Sinus drainage J34.89 [place] [id number] [place] [address] 55026- 7705 Mar, Mood disorder F39 ; Other chronic pain G89.29 and Anxiety F41.9 [place] [id number] [place] [address] 66300- 2959 Mar, Mood disorder F39 ; Arthritis M19.90 and Plantar warts B07.0 [place] [id number] [place] [address] 85201- 4522 Feb, Lupus erythematosus L93.0 [facility] [id number] [place] [address] 01035- 7886 Feb, Other chronic pain G89.29 [place] [address] 41753- 6161 Feb, Mood disorder F[address] [facility] [id number] [place] [address] 01243- 0639 Jan, [facility] [id number] [place] [address] 72349- 0788 Jan, Mood disorder F39 [facility] [id number] [place] [address] 11037- 7180 Dec, Nail, ingrown L60.0 [facility] [id number] [place] [address] 23392- 5775 Dec, Nail, ingrown L60.0 [facility] [id number] [place] [address] 00154- 5873 Nov, Mood disorder F39 [address]9 [facility] [id number] [place] [address] 58856- 8833 Nov, Sinus drainage J34.89 ; Hot flashes R23.2 ; Anxiety F41.9 and Diabetes type [address], [address] [facility] [id number] [place] [address] 19286- 8610 Nov, Nail, ingrown L60.0 [facility] [id number] [place] [address] 72945- 6328 Oct, Anxiety F41.[address] Mood [address]39 [facility] [id number] [place] [address] 90559- 3482 Oct, Nail, ingrown L60.[address] [facility] [id number] [place] [address] 25880- 6554 Oct, Lupus erythematosus L93.0 [facility] [id number] [place] [address] 87136- 6917 September, [facility] [id number] [place] [address] 74683- 8198 September, [facility] [address] [address]- 8385 September, Lupus erythematosus L93.0 [facility] [id number] [place] [address] 35366- 6140 Aug, [facility] [id number] [place] [address] 41040- 2098 Aug, Mood disorder F39 [address]9 [facility] [id number] [place] [address] 94943- 3923 Aug, Lupus erythematosus L93.0 ; Diabetes type 2, controlled E11.9 and Localized edema R60.0 [facility] [id number] [place] [address] 02882- 6933 Aug, [facility] [id number] [place] [address] 68518- 0596 Jul, Anxiety F41.[address] Mood disorder F39 [facility] [id number] [place] [address] 98643- 5476 Jul, Diabetes type 2, controlled E11.9 [facility] [id number] [place] [address] 01390- 4586 Jun, Anxiety F41.9 [facility] [id number] [place] [address] 72756- 6016 May, [facility] [id number] [place] [address] 08000- 6041 May, [facility] [id number] [place] [address] 11552- 2699 May, Nausea R11.0 ; Other chronic pain G89.29 and Pain in right knee M25.561 [facility] [address], [place] [address]- 6235 May, [facility] [id number] [place] [address] 11125- 6772 Apr, Tear of medial meniscus of right knee, current, unspecified tear type, subsequent encounter S83.241D and Tear of lateral meniscus of right knee, current, unspecified tear type, subsequent encounter S83.281D [facility] [id number] [place] [address] 50141- 2228 Apr, Anxiety F41.[address] Mood disorder F39 [facility] [id number] [place] [address] 11849- 7573 Apr, Anxiety F41.9 [facility] [id number] [place] [address] 05239- 6147 Apr, [place] [id number] [place] [address] 03201- 1294 Mar, [place] [id number] [place] [address] 96210- 5200 Mar, Lupus erythematosus L93.0 and Diabetes type 2, controlled E11.9 [place] [id number] [place] [address] 57547- 9240 Mar, Mood disorder F39 [place] [id number] [place] [address] 87180- 5231 Mar, Tear of lateral meniscus of right knee, current, unspecified tear type, initial encounter S83.281A and Osteoarthritis of right knee, unspecified osteoarthritis type M17.9 [facility] [id number] [place] [address] 30809- 9086 Mar, [facility] [id number] [place] [address] 94208- 8904 Feb, Mood disorder F39 [facility] [id number] [place] [address] 50907- 1091 Feb, Rash R21 [facility] [id number] [place] [address] 55166- 2590 Feb, [facility] [id number] [place] [address] 96843- 2275 Jan, Other chronic pain G89.29 and Muscle spasm M62.838 [facility] [id number] [place] [address] 90008- 9921 Jan, Mood disorder F39 [facility] [id number] [place] [address] 29727- 3494 Jan, Pain in right knee M25.561 ; Other chronic pain G89.29 and Muscle spasm M62.838 [facility] [id number] [place] [address] 14004- 9430 Dec, [facility] [id number] [place] [address] 27581- 4766 Dec, [facility] [id number] [place] [address] 65979- 8019 Nov, [facility] [id number] [place] [address] 19089- 6390 Nov, Mood disorder F39 [facility] [id number] [place] [address] 72966- 4834 Nov, Diabetes type 2, controlled E11.9 ; Bronchitis J40 ; Edema, unspecified type R60.9 ; Weight gain R63.5 and Right knee pain, unspecified chronicity M25.561 [place] [id number] [place] [address] 41976- 2685 Oct, Mood disorder F39 [facility] [id number] [place] [address] 90990- 8451 Oct, Lupus erythematosus L93.0 and Bilateral edema of lower extremity R60.0 [place] [id number] [place] [address] 43534- 8754 Oct, Mood disorder F39 and Anxiety F41.9 [place] [id number] [place] [address] 53996- 1184 September, Mood disorder F39 ; Anxiety F41.9 and Anger reaction R45.4 [place] [address], [place] [address]- 6945 September, Diabetes type 2, controlled E11.9 ; Edema, unspecified type R60.9 and Fatigue, unspecified type R53.83 [facility] [id number] [place] [address] 54986- 7028 Aug, Mood disorder F39 and Generalized anxiety disorder F41.1 [facility] [id number] [place] [address] 40024- 8391 Aug, Diabetes type 2, controlled E11.9 ; Sinusitis J32.[address] Mood disorder F39 [facility] [id number] [place] [address] 01313- 0038 Aug, Lupus erythematosus L93.0 [facility] [id number] [place] [address] 52648- 5395 Aug, [facility] [id number] [place] [address] 66525- 8777 Aug, [facility] [id number] [place] [address] 81986- 5129 Jul, Diabetes type 2, controlled E11.9 [facility] [id number] [place] [address] 49989- 7037 Jul, Mood disorder F39 [address] Depression [address]9 [facility] [id number] [place] [address] 84215- 4044 Jul, Lupus erythematosus L93.0 and Diabetes type 2, controlled E11.9 [facility] [address], [place] [address]- 0260 Jul, Mood disorder F39 [address]9 [facility] [id number] [place] [address] 67095- 7309 Jul, [facility] [address], [place] [address]- 7471 Jul, [facility] [id number] [place] [address] 08256- 0068 Jun, Mood disorder F39 [address]9 [facility] [id number] [place] [address] 20573- 0360 Jun, Mood disorder F39 [facility] [id number] [place] [address] 76264- 2676 Jun, [facility] [id number] [place] [address] 06354- 8640 Jun, [facility] [id number] [place] [address] 11316- 1329 Jun, Mood disorder F39 [facility] [id number] [place] [address] 68284- 1686 Jun, [facility] [id number] [place] [address] 43568- 3726 May, [facility] [id number] [place] [address] 85775- 3209 May, [facility] [id number] [place] [address] 72170- 7663 May, [facility] [id number] [place] [address] 83670- 4706 May, [facility] [id number] [place] [address] 89461- 3452 May, Anxiety F41.9 ; Dermatomyositis M33.90 and Diabetes type 2, controlled E11.9 [facility] [id number] [place] [address] 08981 -7291 May, Sinusitis J32.[address] [facility] [id number] [place] [address] 02545- 0993 May, Mood disorder F39 [facility] [id number] [place] [address] 96570- 0835 May, Adjustment disorder with mixed anxiety and depressed mood F43.23 [facility] [address], [place] [address]- 5602 Apr, [facility] [id number] [place] [address] 075809- 4006 Apr, [facility] [id number] [place] [address] 65024- 0918 Apr, Generalized anxiety disorder F41.1 and Mood disorder F39 [facility] [id number] [place] [address] 74122- 2260 Mar, [facility] [id number] [place] [address] 33415- 3437 Mar, [facility] [id number] [place] [address] 71946- 6886 Mar, [facility] [id number] [place] [address] 26198- 0032 Mar, Mood disorder F39 [facility] [id number] [place] [address] 65393- 4405 Feb, [facility] [id number] [place] [address] 09289- 4996 Feb, Diabetes E11.[address] [facility] [id number] [address] Feb, [facility] [id number] [place] [address] 44461- 8394 Feb, [facility] [id number] [place] [address] 39318- 2564 Feb, Major depression, recurrent, full remission F33.42 and KELLY ( generalized anxiety disorder) F41.1 [facility] [id number] [address] Feb, [facility] [id number] [place] [address] 90163- 1125 Feb, Single major depressive episode, in partial or unspecified remission F32.5 [place] [id number] [place] [address] 97442- 8972 Jan, Fatigue 780.79 [place] [id number] [place] [address] 78615- 6000 Jan, [place] [id number] [place] [address] 84736- 0328 Jan, Diabetes with other specified manifestations, type II or unspecified type, not stated as uncontrolled 250.80 [place] [id number] [place] [address] 92035- 0698 Jan, [place] [address] [id number] [place] [address] 21457- 5431 Dec, Hot flashes 627.2 ; Memory loss 780.93 and Joint pain 719.40 [place] [id number] [place] [address] 43484- 1890 Dec, Major depression, recurrent 296.30 ; Generalized anxiety disorder 300.02 ; Adjustment disorder with depressed mood 309.0 and No condition on Mallard II V71.09 [place] [id number] [place] [address] 72645- 5894 Dec, [place] [address] [id number] [place] [address] 30681- 1408 Nov, Cognitive and neurobehavioral dysfunction 294.9 ; Major depressive disorder, recurrent episode, moderate degree 296.32 and Anxiety state , unspecified 300.00 [place] [id number] [place] [address] 49476- 6881 Nov, [place] [id number] [place] [address] 06852- 3526 Nov, Bronchitis 490 and Diabetes with other specified manifestations, type II or unspecified type, not stated as uncontrolled 250.80 [place] [id number] [place] [address] 16895- 9218 Nov, Major depressive disorder, recurrent episode, moderate 296.32 and Anxiety disorder, unspecified 300.[id number] [place] [address] 24841- 2480 Nov, Anxiety, generalized 300.02 ; Intermittent explosive disorder 312.34 ; No condition on Mallard II V71.09 and No condition on axis III V71.09 [place] [id number] [place] [address] 88824- 7867 Oct, Diabetes with other specified manifestations, type II or unspecified type, not stated as uncontrolled 250.80 ; Urinary tract infection, site not specified 599.0 and Bronchitis [id number] [place] [address] 83732- 0827 Oct, Intermittent explosive disorder 312.34 ; Bipolar 1 disorder , depressed, moderate 296.52 ; Major depression, chronic 296.20 ; No condition on Mallard II V71.09 and No condition on axis III V71.09 [address] [id number] [place] [address] 77354- 5734 Oct, Major depressive disorder, recurrent episode, moderate 296.32 ; Anxiety state 300.00 ; Cognitive decline 294.9 and No condition on Mallard II V71.09 [id number] [place] [address] 53019- 9670 Oct, [address] [id number] [place] [address] 52228- 4115 Oct, Major depressive disorder, recurrent episode, moderate 296.32 ; Anxiety disorder, unspecified 300.00 and Persistent disorder of initiating or maintaining sleep 307.42 [id number] [place] [address] 83918- 7738 September, Diabetes with other specified manifestations, type II or unspecified type, not stated as uncontrolled 250.80 ; Memory loss 780.93 and Cognitive complaints 799.59 [id number] [place] [address] 38010- 0598 September, No condition on Mallard II V71.09 ; Major depression, recurrent 296.30 and Persistent mood [affective] disorder, unspecified 296.90 [facility] [address] [place] [address] 7569 28 Aug, 2014 [facility] [address] [id number] [place] [address] [address], [address] [facility] [address] [address] Aug, [facility] [address] [id number] [address]337 Jul, [facility] [address] [address]604 Jul, [facility] [address] [address] Jul, [facility] [address] 9469 Jul, [facility] [address] [address] Jul, [facility] [address] [address] 7349 Jun, [facility] [address] [address] 1691 Jun, [facility] [address] [address] Jun, [facility] [address], [place] [address]- 2382 Jun, [facility] [address], [place] [address]- 1309 Jun, [facility] [address], [place] [address]- [address] Jun, [facility] [address], [place] [address]- 4657 Jun, 2014 [facility] [place] [facility] [address] [id number] [place] [address]- 7534 Jun, 2014 [facility] [place] [facility] [address] [id number] [place] [address]- 3319 Jun, 2014 [facility] [place] [facility] [address] [facility] [id number] [place] [address]- 8406 Jun, 2014 [facility] [place] [facility] [address] [id number] [place] [address]- 0503 Jun, 2014 [facility] [place] [facility] [address] [id number] [place] [address]- 0585 Jun, 2014 [facility] [place] [facility] [address] [facility] [id number] [place] [address]- 0275 Jun, 2014 [facility] [place] [facility] [address] [id number] [place] [address]- 0567 May, [facility] [place] [facility] [address] [id number] [place] [address]- 8065 May, [facility] [place] [facility] [address] [id number] [place] [address]- 9225 Apr, [facility] [place] [facility] [address] [facility] [id number] [place] [address]- 7383 Apr, [facility] [place] [facility] [address] [id number] [place] [address]- 5777 Apr, [facility] [place] [facility] [address] [id number] [place] [address]- 5590 Apr, [facility] [place] [facility] [address] [id number] [place] [address]- 5463 Apr, [facility] [place] [facility] [address] [facility] [id number] [place] [address]- 6179 Apr, [facility] [place] [facility] [address] [facility] [id number] [place] [address]- 4816 Apr, [facility] [place] [facility] [address] [id number] [place] [address]- 2700 Apr, [facility] [address] [id number] [place] [address]- 2286 Apr, [facility] [place] [facility] [address] [id number] [place] [address]- 8796 Apr, [facility] [place] [facility] [address] [id number] [place] 0166 Apr, [facility] [place] [facility] [address] [id number] [place] [address]- 8789 Apr, [facility] [place] [facility] [address] [id number] [place] 9301 Apr, [facility] [place] [facility] [address] [id number] [place] [address]- 7039 Apr, [facility] [place] [facility] [address] [id number] [place] [address]- 7380 Apr, [facility] [place] [facility] [address] [id number] [place] [address]- 6713 Apr, [facility] [place] [facility] [address] [id number] [place] [address]- 1596 Apr, [facility] [place] [facility] [address] [id number] [place] [address]- 2650 Apr, [facility] [place] [facility] [address] [id number] [place] [address]- 4626 Apr, [facility] [place] [facility] [address] [id number] [place] [address]- 6352 Apr, [facility] [place] [facility] [address] [id number] [place] [address]- 4344 Mar, [facility] [place] [facility] [address] [id number] [place] [address]- 3989 Mar, [facility] [place] [facility] [address] [id number] [place] [address]39 Mar, [facility] [place] [facility] [address] [id number] [place] [address]- 5070 Mar, [facility] [place] [facility] [address] [id number] [place] [address]- 2684 Mar, [facility] [place] [facility] [address] [id number] [place] [address]- 6565 Mar, [facility] [place] [facility] [address] [id number] [place] [address]- 1125 Mar, [facility] [place] [facility] [address] [id number] [place] [address]- 8069 Mar, [facility] [place] [facility] [address] [id number] [place] [address]- 6299 Mar, [facility] [place] [facility] [address] [id number] [place] [address]- 1833 Mar, [facility] [place] [facility] [address] [id number] [place] [address]- 6895 Mar, [facility] [place] [facility] [address] [id number] [place] [address]- 7725 Mar, [facility] [place] [facility] [address] [id number] [place] [address]- 3766 Mar, [facility] [place] [facility] [address] [id number] [place] [address]- 6913 Feb, [facility] [place] [facility] [address] [id number] [address]- 1727 Feb, [facility] [place] [facility] [address] [id number] [place] [address]- 1316 30 Feb, 2014 [facility] [place] [facility] [address] [id number] [place] [address]- 7748 Feb, [facility] [place] [facility] [address] [id number] [place] [address]- 3592 Feb, [facility] [place] [facility] [address] [id number] [place] [address]- 1527 Feb, [facility] [place] [facility] [address] [id number] [place] [address]- 1697 Feb, [facility] [place] [facility] [address] [id number] [place] [address]- 8384 Feb, [facility] [place] [facility] [address] [id number] [place] [address]- 7717 Feb, [facility] [place] [facility] [address] [id number] [place] [address]- 3952 Feb, [facility] [place] [facility] [address] [id number] [place] [address]- 6627 Feb, [facility] [place] [facility] [address] [id number] [place] [address]- 5399 Feb, [facility] [place] [facility] [address] [id number] [place] [address]- 7838 Feb, [facility] [place] [facility] [address] [id number] [place] [address]- 2347 Feb, [facility] [place] [facility] [address] [id number] [place] [address]- 6395 07 Feb, 2014 [facility] [place] [facility] [address] [id number] [place] [address]- 9372 10 Jan, 2014 [facility] [place] [facility] [address] [id number] [place] [address]- 5407 08 Jan, 2013 [facility] [place] [facility] [address] [id number], [place] [address]- 4800 08 Jan, 2013 [facility] [place] [facility] [address] [id number] [place] [address]- 1371 08 Jan, 2013 [facility] [place] [facility] [address] [id number] [place] [address]- 6026 08 Jan, 2013 [facility] [place] [facility] [address] [id number] [place] [address]- 4040 Dec, [facility] [place] [facility] [address] [id number] [place] [address]- 5646 Dec, [facility] [place] [facility] [address] [id number] [place] [address]- 6747 Dec, [facility] [place] [facility] [address] [id number] [place] [address]- 2567 Dec, [facility] [place] [facility] [address] [id number] [place] [address]- 7180 Nov, [facility] [place] [facility] [address] [id number] [place] [address]- 2657 Nov, [facility] [place] [facility] [address] [id number] [place] [address]- 8733 Nov, [facility] [place] [facility] [address] [id number] [place] [address]- 7054 Nov, [facility] [place] [facility] [address] [id number] [place] [address]- 8047 Nov, [facility] [place] [facility] [address] [id number] [place] [address]- 4611 Nov, [facility] [place] [facility] [address] [id number] [place] [address]- 2288 Nov, [facility] [place] [facility] [address] [id number] [place] [address]- 7204 Nov, [facility] [place] [facility] [address] [id number] [place] [address]- 3013 Nov, [facility] [place] [facility] [address] [id number] [place] [address]- 6207 Nov, [facility] [place] [facility] [address] [id number] [place] [address]- 8855 Oct, [facility] [place] [facility] [address] [id number] [place] [address]- 0338 Oct, [facility] [place] [facility] [address] [id number] [place] [address]- 2117 September, [facility] [place] [facility] [address] [id number] [place] [address]- 4865 September, [facility] [place] [facility] [address] [id number] [place] [address]- 4256 September, [facility] [place] [facility] [address] [id number] [place] [address]- 4036 September, [facility] [place] [facility] [address] [id number] [place] [address]- 9464 Aug, [facility] [place] [facility] [address] [id number] [place] [address]- 8520 Aug, [facility] [place] [facility] [address] [id number] [place] [address]- 1136 Aug, [facility] [place] [facility] [address] [id number] [place] [address]- 3717 Jul, [facility] [place] [facility] [address] [id number] [place] [address]- 6190 Jul, [facility] [place] [facility] [address] [id number] [place] [address]- 0576 Jul, [facility] [place] [facility] [address] [id number] [place] [address]- 6232 Jul, [facility] [place] [facility] [address] [id number] [place] [address]- 9795 May, [facility] [place] [facility] [address] [id number], [place] [address]- 3234 May, [facility] [place] [facility] [address] [id number] [place] [address]- 4741 May, [facility] [place] [facility] [address] [id number] [place] [address]- 0076 Mar, [facility] [place] [facility] [address] [id number] [place] [address]- 5498 Mar, [facility] [place] [facility] [address] [id number] [place] [address]- 1455 Mar, [facility] [place] [facility] [address] [id number] [place] [address]- 9568 Mar, [facility] [place] [facility] [address] [id number] [place] [address]- 5745 Feb, [facility] [place] [facility] [address] [id number] [place] [address]- 1375 Feb, [facility] [place] [facility] [address] [id number] [place] [address] 2542 Feb, [facility] [place] [facility] [address] [id number] [place] [address]- 6562 Jan, [facility] [place] [facility] [address] [id number] [place] [address]- 8375 Jan, [facility] [place] [facility] [address] [id number] [place] [address]- 7100 Jan, [facility] [place] [facility] [address] [id number] [place] [address]- 5582 Dec, [facility] [place] [facility] [address] [id number] [place] [address]- 0819 Dec, [facility] [place] [facility] [address] [id number] [place] [address]- 1751 Dec, [facility] [place] [facility] [address] [id number] [place] [address]- 0075 Dec, [facility] [place] [facility] [address] [id number] [place] [address]- 7830 Nov, [facility] [place] [facility] [address] [id number] [place] [address]- 2119 Oct, [facility] [place] [facility] [address] [id number] [place] [address] 2546 Oct, [facility] [place] [facility] [address] [id number] [place] [address]- 4521 September, [facility] [place] [facility] [address] [id number] [place] [address]- 7778 September, [facility] [address] [id number] [place] [address]- 0805 September, [facility] [address] [id number] [place] [address]- 8501 Aug, [facility] [address] [id number] [place] [address]- 7283 Aug, [facility] [address] [id number] [place] [address]- 3907 Aug, [facility] [address] [id number] [place] [address]- 8077 Aug, [facility] [address] [id number] [place] [address]- 6110 Jul, [facility] [address] [id number] [place] [address]- 7556 Jul, [facility] [address] [id number] [place] [address]- 9584 Jul, [facility] [address] [id number] [place] [address]- 8804 15 Jul, 2012 [facility] [address] [id number] [place] [address]- 8584 14 Jul, 2012 [facility] [address] [id number], [place] [address]- 1068 Jul, [facility] [address] [id number] [place] [address]- 6550 Jul, [facility] [address] [id number] [place] [address]- 2570 Jun, [facility] [address] [id number] [place] [address]- 2967 Jun, [facility] [address] [id number], [place] [address]- 7841 05 Jun, 2012 [facility] [address] [id number] [place] [address]- 8557 Jun, [facility] [address] [id number] [place] [address]- 0661 May, [facility] [address] [id number] [place] [address]- 7677 May, [facility] [place] [facility] [address] [id number] [place] [address]- 7344 May, [facility] [address] [id number] [place] [address]- 0560 May, [facility] [address] [id number] [place] [address]- 6746 May, [facility] [address] [facility] [id number] [place] [address]- 9111 Apr, [facility] [address] [id number] [place] [address]- 0900 Apr, [facility] [address] [id number] [place] [address]- 5695 Mar, [facility] [address] [facility] [id number] [place] [address]- 7738 Mar, [facility] [address] [id number] [place] [address]- 5907 Mar, [facility] [place] [facility] [address] [id number], [place] [address]- 3462 Mar, [facility] [place] [facility] [address] [id number] [place] [address]- 3383 Mar, [facility] [place] [facility] [address] [id number] [place] [address]- 9683 Mar, [facility] [place] [facility] [address] [facility] [id number], [place] [address]- 1930 Mar, [facility] [place] [facility] [address] [id number] [place] [address]- 4552 Mar, [facility] [place] [facility] [address] [id number] [place] [address]- 0924 Mar, [facility] [place] [facility] [address] [id number] [place] [address]- 8321 Mar, [facility] [place] [facility] [address] [id number] [place] [address]- 5501 Feb, [facility] [place] [facility] [address] [id number] [place] 8148 Feb, [facility] [place] [facility] [address] [id number] [place] [address]- 6496 Feb, [facility] [place] [facility] [address] [id number] [place] 3754 Feb, [facility] [place] [facility] [address] [id number] [place] [address]- 2649 Feb, [facility] [place] [facility] [address] [id number] [place] [address]- 5319 Feb, [facility] [place] [facility] [address] [id number] [place] [address]- 6906 Feb, [facility] [place] [facility] [address] [id number] [place] [address]- 6943 Jan, [facility] [place] [facility] [address] [id number] [place] [address]- 9034 Jan, [facility] [place] [facility] [address] [id number] [place] [address]- 2171 Dec, [facility] [place] [facility] [address] [id number] [place] [address]- 1906 Dec, [facility] [place] [facility] [address] [id number] [place] [address]- 1392 Dec, [facility] [place] [facility] [address] [id number] [place] [address]- 7200 Dec, [facility] [place] [facility] [address] [id number] [place] [address]- 3652 Dec, [facility] [place] [facility] [address] [id number] [place] [address]- 3166 Dec, [facility] [place] [facility] [address] [id number] [place] [address]- 0777 Nov, [facility] [place] [facility] [address] [id number] [place] [address] Nov, [facility] [place] [facility] [address] [id number] [place] [address] Nov, [facility] [place] [facility] [address] [id number] [place] [address] Nov, [facility] [place] [facility] [address] [id number] [place] [address] September, [facility] [place] [facility] [address] [id number] [place] [address] September, [facility] [place] [facility] [address] [id number] [place] [address] September, [facility] [place] [facility] [address] [id number] [place] [address] Jul, [facility] [place] [facility] [address] [id number] [place] [address] Jun, [facility] [place] [facility] [address] [id number] [place] [address] Jun, [facility] [place] [facility] [address] [id number] [place] [address] Jun, [facility] [place] [facility] [address] [id number] [place] [address] Apr, [facility] [place] [facility] [address] [id number] [place] [address] Mar, [facility] [place] [facility] [address] [facility] [id number] [address] Mar, [facility] [address] [id number] [address] Feb, [facility] [id number] [address] Feb, [facility] [address] [id number] [address] Feb, [facility] [id number], [place] [address] Jul, [facility] [address] [id number], [place] [address] Feb, IMMUNIZATIONS No Known Immunizations SOCIAL HISTORY Never Assessed REASON FOR VISIT Controlled Med Refill PLAN OF CARE VITAL SIGNS MEDICATIONS Medication Instructions Dosage Frequency Start Date End Date Duration Status Henderson 7.5-325 MG Orally every 6 hrs 1 tablet as needed 6h Dec, 28 days Active RESULTS No Results PROCEDURES [...]
--- OUTSIDE RECORDS SUMMARY | 2018-05-09 22:41 | XMS REPORT ---
Author Author MACY TAMAYO [facility] Address [address] [place] [address] Care Team Providers Care Personnel Worker Name Role Phone MACY TAMAYO Unavailable PROBLEMS Type Condition ICD9-CM Code BOD36-PG Code Onset Dates Condition Status SNOMED Code Problem Controlled type 2 diabetes mellitus without complication, without long -term current use of insulin E11.9 Active 815631661 Problem Body mass index (BMI) of 45.0-49.9 in adult Z68.42 Active 741516276 Problem Tachycardia with heart rate 121-140 beats per minute R00.0 Active 9318215 Problem Facial droop R29.810 Active 91882408 Problem Menopause Z78.0 Active 860912316 Problem Gait disturbance R26.9 Active 04820202 Problem Dermatomyositis M33.90 Active 690975734 Problem Enlarged thyroid gland E04.9 Active 0472884 Problem Lumbago with sciatica, right side M54.41 Active 044873623 Problem Morbid (severe) obesity due to excess calories E66.01 Active 168155135 Problem Diabetes type 2, controlled E11.9 Active 26068648 Problem Osteoarthritis of right knee, unspecified osteoarthritis type M17.9 Active 651850444 Problem Allergic rhinitis due to pollen J30.1 Active 87875936 Problem Mood disorder F39 Active 92190283 Problem Arthritis M19.90 Active 9818824 Problem Plantar warts B07.0 Active 28188280 Problem Anxiety F41.9 Active 71115419 Problem Plantar wart of both feet B07.0 Active [id number] Problem Other chronic pain G89.29 Active 66976751 Problem Lumbago with sciatica, left side M54.42 Active [id number] ALLERGIES No Information ENCOUNTERS Encounter Location Date Diagnosis [facility] [address] [facility] [id number] [address] Mar, [facility] [address] 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 [facility] [id number] [place] [address] 67123- 4959 Jan, [facility] [address] 37675- 3856 Jan, [facility] [id number] [place] [address] 25223- 8218 Jan, [facility] [address] 35224- 0000 19 Jan, 2018 Allergic reaction to drug, initial encounter T78.40XA [facility] [id number] [place] [address] 87209- 1693 17 Jan, 2018 BMI 45.0-49.9, adult Z68.42 and Facial droop R29.810 [facility] [id number] [place] [address] 41349- 5516 14 Jan, 2018 Mood disorder F39 [facility] [address] 78355- 9957 11 Jan, 2018 Dermatomyositis M33.90 and BMI 40.0-44.9, adult Z68.41 [facility] [id number] [place] [address] 13184- 6893 10 Jan, 2018 [place] [address] 84743- 0066 Jan, [place] [address] 07969- 5122 Jan, Irritation of left eye H57.8 and BMI 40.0-44.9, adult Z68.41 [place] [address] 72630- 8600 Dec, Diabetes type 2, controlled E11.9 [place] [address] 39129- 3503 Dec, Acute right ankle pain M25.571 [place] [address] 94750- 7482 Dec, Other chronic pain G89.29 ; Diabetes type 2, controlled E11.9 ; Gait disturbance R26.9 ; Weakness R53.1 and Muscle spasm M62.838 [place] [address] 70444- 2299 Dec, Acute non-recurrent maxillary sinusitis J01.00 [place] [address] 27039- 4651 Dec, [place] [address] 02114- 0871 Dec, [place] [address] 27957- 3817 Dec, Acute non-recurrent maxillary sinusitis J01.00 [place] [address] 87750- 9539 Dec, Lumbago with sciatica, right side M54.41 and Lupus erythematosus L93.0 [place] [address] 67061- 0274 Dec, Mood disorder F39 [place] [address] 36719- 6284 Dec, Mood disorder F39 [facility] [address] [address] 80[address] Dec, [facility] [id number] [place] [address] 18080- 2512 Dec, Acute right ankle pain M25.571 [facility] [address] [place] [id number] [place] [address] 74212- 8840 Nov, Lumbar radiculopathy M54.16 [facility] [id number] [place] [address] 91334- 0051 Nov, [facility] [id number] [place] [address] 92639- 5561 Nov, Mood disorder F39 [facility] [id number] [place] [address] 25662- 0057 Nov, Lumbago with sciatica, right side M54.41 and Other chronic pain G89.29 [facility] [id number] [place] [address] 94772- 0592 Nov, Acute right ankle pain M25.571 [facility] [id number] [place] [address] 56956- 6019 Nov, [facility] [id number] [place] [address] 51631- 1404 Oct, [facility] [id number] [place] [address] 10564- 3533 Oct, Plantar wart of both feet B07.0 [facility] [address] [place] [address] 37121- 8364 Oct, [facility] [id number] [place] [address] 39687- 5882 Oct, Acute right ankle pain M25.571 and Plantar wart of both feet B07.0 [facility] [id number] [place] [address] 18022- 8887 September, Other chronic pain G89.29 [facility] [id number] [place] [address] 55900- 6646 September, Other chronic pain G89.29 [facility] [id number] [place] [address] 48198- 6544 September, Other chronic pain G89.29 [facility] [address] 45828- 2360 Aug, Mood disorder F39 [place] [address] 16498- 8004 Aug, Other chronic pain G89.29 ; Controlled type 2 diabetes mellitus without complication, without long-term current use of insulin E11.9 ; Low back pain M54.5 and Tinea corporis B35.4 [place] [address] 94821- 9327 Aug, Mood disorder F39 and Anxiety F41.9 [place] [id number] [place] [address] 33274- 5167 Aug, Mood disorder F39 and Anxiety F41.9 [place] [id number] [place] [address] 33554- 5401 Jul, [facility] [id number] [place] [address] 05231 -1617 Jul, Scabies B86 and BMI 45.0-49.9, adult Z68.42 [place] [id number] [place] [address] 15534- 2619 Jul, [place] [address] 94324- 1718 Jul, Mood disorder F39 and Anxiety F41.9 [place] [id number] [place] [address] 34597- 7856 Jul, [facility] [id number] [place] [address] 27 Jun, 2017 Bronchitis J40 ; Dark urine R82.99 and BMI 45.0-49.9, adult Z68.42 [place] [address]- 7090 14 Jun, 2017 Acute pain of right shoulder M25.511 and Acute pain of right knee M25.561 [place] [address]268- 8506 May, BMI 40.0-44.9, adult Z68.41 ; Controlled type 2 diabetes mellitus without complication, without long-term current use of insulin E11.9 ; Muscle cramping R25.2 ; Hot flashes R23.2 ; Mood disorder F39 ; Anxiety F41.9 and Morbid (severe) obesity due to excess calories E66.[address] 42392- 2765 May, BMI 40.0-44.9, adult Z68.41 ; Controlled type 2 diabetes mellitus without complication, without long-term current use of insulin E11.9 ; Muscle cramping R25.2 and Hot flashes R23.2 [place] [id number] [place] [address] 62941- 4380 May, Tachycardia with heart rate 121-140 beats per minute R00.0 ; Morbid (severe) obesity due to excess calories E66.01 ; Diabetes type 2, controlled E11.9 and Enlarged thyroid gland E04.[address] 18317- 5971 May, Encounter for well woman exam with [...] Dysuria R30.0 and Screening breast examination Z12.31 [facility] [id number] [place] [address] 16122- 6900 Apr, Mood disorder F39 ; Other chronic pain G89.29 and Anxiety F41.9 [facility] [id number] [place] [address] 35003- 2545 Apr, Lumbago with sciatica, left side M54.42 and Other chronic pain G89.29 [facility] [id number] [place] [address] 63875- 4106 Apr, Lupus erythematosus L93.0 [facility] [address] 172168- 3482 Mar, Plantar wart of both feet B07.0 [facility] [id number] [place] [address] 04475- 9413 Mar, Lupus erythematosus L93.0 and Sinus drainage J34.89 [facility] [id number] [place] [address] 24539- 2357 Mar, Mood disorder F39 ; Other chronic pain G89.29 and Anxiety F41.9 [facility] [id number] [place] [address] 82865- 4155 Mar, Mood disorder F39 ; Arthritis M19.90 and Plantar warts B07.0 [facility] [id number] [place] [address] 65531- 3022 Feb, Lupus erythematosus L93.0 [facility] [id number] [place] [address] 77878- 2544 Feb, Other chronic pain G89.29 [facility] [id number] [place] [address] 19678- 7512 Feb, Mood disorder F39 and Anxiety F41.9 [facility] [id number] [place] [address] 66185- 7483 Jan, [facility] [id number] [place] [address] 74748- 5655 Jan, Mood disorder F39 [facility] [id number] [place] [address] 83974- 5622 Dec, Nail, ingrown L60.0 [facility] [id number] [place] [address] 18013- 0463 Dec, Nail, ingrown L60.0 [facility] [id number] [place] [address] 13187- 7159 Nov, Mood disorder F39 and Anxiety F41.9 [facility] [id number] [place] [address] 19541- 4131 Nov, Sinus drainage J34.89 ; Hot flashes R23.2 ; Anxiety F41.9 and Diabetes type 2, controlled E11.9 [facility] [id number] [place] [address] 10835- 7153 Nov, Nail, ingrown L60.0 [facility] [id number] [place] [address] 17272- 4469 Oct, Anxiety F41.9 and Mood disorder F39 [facility] [id number] [place] [address] 16612- 0482 Oct, Nail, ingrown L60.0 and Anxiety F41.9 [facility] [id number] [place] [address] 37682- 5829 Oct, Lupus erythematosus L93.0 [facility] [id number] [place] [address] 31091- 7451 September, [facility] [address] 42119- 2339 September, [facility] [id number] [place] [address] 47230- 5495 September, Lupus erythematosus L93.0 [facility] [id number] [place] [address] 26680- 2205 Aug, [facility] [id number] [place] [address] 09503- 9804 Aug, Mood disorder F39 and Anxiety F41.9 [facility] [id number] [place] [address] 13187- 6086 Aug, Lupus erythematosus L93.0 ; Diabetes type 2, controlled E11.9 and Localized edema R60.0 [facility] [id number] [place] [address] 79796- 6280 Aug, [place] [id number] [place] [address] 19392- 2414 Jul, Anxiety F41.9 and Mood disorder F39 [place] [id number] [place] [address] 21120- 6958 Jul, Diabetes type 2, controlled E11.9 [facility] [id number] [place] [address] 97328- 1538 Jun, Anxiety F41.9 [place] [id number] [place] [address] 13985- 8929 May, [place] [id number] [place] [address] 02072- 7797 May, [place] [id number] [place] [address] 00049- 2259 May, Nausea R11.0 ; Other chronic pain G89.29 and Pain in right knee M25.561 [place] [id number] [place] [address] 63935- 9195 May, [place] [id number] [place] [address] 54414- 9870 Apr, Tear of medial meniscus of right knee, current, unspecified tear type, subsequent encounter S83.241D and Tear of lateral meniscus of right knee, current, unspecified tear type, subsequent encounter S83.281D [place] [id number] [place] [address] 22492- 7082 Apr, Anxiety F41.9 and Mood disorder F39 [facility] [address] 98485- 6231 Apr, Anxiety F41.9 [facility] [id number] [place] [address] 46739- 5528 Apr, [facility] [address] 07506- 8584 Mar, [facility] [address] 67983- 8849 Mar, Lupus erythematosus L93.0 and Diabetes type 2, controlled E11.9 [facility] [address] 43048- 8433 Mar, Mood disorder F39 [facility] [address] 80346- 0885 Mar, Tear of lateral meniscus of right knee, current, unspecified tear type, initial encounter S83.281A and Osteoarthritis of right knee, unspecified osteoarthritis type M17.9 [facility] [address] 22328- 1776 Mar, [facility] [id number] [place] [address] 02623- 7965 Feb, Mood disorder F39 [facility] [address] 61186- 9249 Feb, Rash R21 [facility] [id number] [place] [address] 67939- 1809 Feb, [facility] [address] 25870- 3045 Jan, Other chronic pain G89.29 and Muscle spasm M62.838 [facility] [id number] [place] [address] 79989- 8389 Jan, Mood disorder F39 [place] [address], [place] [address]- 8982 Jan, Pain in right knee M25.561 ; Other chronic pain G89.29 and Muscle spasm M62.838 [place] [address], [place] [address]- 7845 Dec, [place] [id number] [place] [address] 15285- 4509 Dec, [place] [id number] [place] [address] 27361- 6048 Nov, [place] [id number] [place] [address] 27744- 3278 Nov, Mood disorder F39 [place] [id number] [place] [address] 64262- 6153 Nov, Diabetes type 2, controlled E11.9 ; Bronchitis J40 ; Edema, unspecified type R60.9 ; Weight gain R63.5 and Right knee pain, unspecified chronicity M25.561 [place] [id number] [place] [address] 22500- 1499 Oct, Mood disorder F39 [place] [id number] [place] [address] 14954- 1550 Oct, Lupus erythematosus L93.0 and Bilateral edema of lower extremity R60.0 [place] [id number] [place] [address] 95541- 3050 Oct, Mood disorder F39 and Anxiety F41.9 [place] [id number] [place] [address] 65569- 1525 September, Mood disorder F39 ; Anxiety F41.9 and Anger reaction R45.4 [place] [address] [place] [address] 27581- 4749 September, Diabetes type 2, controlled E11.9 ; Edema, unspecified type R60.9 and Fatigue, unspecified type R53.83 [place] [id number] [place] [address] 02836- 9641 Aug, Mood disorder F39 and Generalized anxiety disorder F41.1 [facility] [id number] [place] [address] 68022- 4944 Aug, Diabetes type 2, controlled E11.9 ; Sinusitis J32.9 and Mood disorder F39 [facility] [id number] [place] [address] 76110- 3644 Aug, Lupus erythematosus L93.0 [facility] [id number] [place] [address] 99242- 9970 Aug, [facility] [id number] [place] [address] 26067- 0987 Aug, [facility] [id number] [place] [address] 52413- 5454 Jul, Diabetes type 2, controlled E11.9 [facility] [id number] [place] [address] 08581- 3472 Jul, Mood disorder F39 and Depression F32.9 [facility] [id number] [place] [address] 64464- 6225 Jul, Lupus erythematosus L93.0 and Diabetes type 2, controlled E11.9 [facility] [id number] [place] [address] 64399- 6638 Jul, Mood disorder F39 and Anxiety F41.9 [facility] [id number] [place] [address] 29559- 4414 Jul, [facility] [id number] [place] [address] 13483- 7442 Jul, [facility] [id number] [place] [address] 02432- 1744 Jun, Mood disorder F39 and Anxiety F41.9 [facility] [id number] [place] [address] 30473- 6802 Jun, Mood disorder F39 [facility] [address], [place] [address]- 3916 Jun, [facility] [id number] [place] [address] 10017- 3371 Jun, [facility] [id number] [place] [address] 00256- 9602 Jun, Mood disorder F39 [facility] [id number] [place] [address] 23721- 8843 Jun, [facility] [id number] [place] [address] 31762- 9151 May, [facility] [id number] [place] [address] 83322- 6531 May, [facility] [id number] [place] [address] 04806- 3648 May, [facility] [id number] [place] [address] 84267- 1152 May, [facility] [id number] [place] [address] 39719- 3221 May, Anxiety F41.9 ; Dermatomyositis M33.90 and Diabetes type 2, controlled E11.9 [facility] [address] [place] [address]4079 May, Sinusitis J32.9 and Cough R05 [facility] [address], [place] [address]- 2427 May, Mood disorder F39 [facility] [id number] [place] [address] 81275- 0083 May, Adjustment disorder with mixed anxiety and depressed mood F43.23 [facility] [address], [place] [address]- 3137 Apr, [facility] [id number] [place] [address] 52236- 1855 Apr, [facility] [id number] [place] [address] 62286- 8786 Apr, Generalized anxiety disorder F41.1 and Mood disorder F39 [facility] [id number] [place] [address] 32005- 3030 Mar, [facility] [id number] [place] [address] 30368- 3561 Mar, [facility] [id number] [place] [address] 84362- 8551 Mar, [facility] [id number] [place] [address] 68462- 4074 Mar, Mood disorder F39 [facility] [id number] [place] [address] 83251- 2672 Feb, [facility] [id number] [place] [address] 07088- 5008 Feb, Diabetes E11.9 and Bronchitis J40 [facility] [id number] [place] [address] 51792- 5123 Feb, [facility] [id number] [place] [address] 59742- 3467 Feb, [facility] [id number] [place] [address] 69180- 1978 Feb, Major depression, recurrent, full remission F33.42 and KELLY ( generalized anxiety disorder) F41.1 [facility] [id number] [place] [address] 14819- 1762 Feb, [facility] [id number] [place] [address] 89295- 9918 Feb, Single major depressive episode, in partial or unspecified remission F32.5 [facility] [address], [place] [address]- 3291 Jan, Fatigue 780.79 [facility] [id number] [place] [address] 95186- 7125 Jan, [place] [id number] [place] [address] 29658- 9699 Jan, Diabetes with other specified manifestations, type II or unspecified type, not stated as uncontrolled 250.80 [place] [id number] [place] [address] [id number]- 3859 Jan, [place] [address] 87990- 7516 Dec, Hot flashes 627.2 ; Memory loss 780.93 and Joint pain 719.[address] 51347- 7374 Dec, Major depression, recurrent 296.30 ; Generalized anxiety disorder 300.02 ; Adjustment disorder with depressed mood 309.0 and No condition on [place] II V71.09 [place] [id number] [place] [address] 32284- 4239 Dec, [place] [id number] [place] [address] 22694- 5309 Nov, Cognitive and neurobehavioral dysfunction 294.9 ; Major depressive disorder, recurrent episode, moderate degree 296.32 and Anxiety state , unspecified 300.00 [place] [id number] [place] [address] 87096- 2629 Nov, [place] [id number] [place] [address] 00825- 1051 Nov, Bronchitis 490 and Diabetes with other specified manifestations, type II or unspecified type, not stated as uncontrolled 250.80 [place] [id number] [place] [address] 59566- 9674 Nov, Major depressive disorder, recurrent episode, moderate 296.32 and Anxiety disorder, unspecified 300.[id number] [place] [address] [id number]- 1138 Nov, Anxiety, generalized 300.02 ; Intermittent explosive disorder 312.34 ; No condition on [place] II V71.09 and No condition on axis III V71.09 [id number] [place] [address] 30467- 6862 Oct, Diabetes with other specified manifestations, type II or unspecified type, not stated as uncontrolled 250.80 ; Urinary tract infection, site not specified 599.0 and Bronchitis [id number] [place] [address] 24064- 6596 Oct, Intermittent explosive disorder 312.34 ; Bipolar 1 disorder , depressed, moderate 296.52 ; Major depression, chronic 296.20 ; No condition on [place] II V71.09 and No condition on axis III V71.09 [address] [id number] [place] [address] 35999- 8380 Oct, Major depressive disorder, recurrent episode, moderate 296.32 ; Anxiety state 300.00 ; Cognitive decline 294.9 and No condition on [place] II V71.09 [address] [id number] [place] [address] 65525- 4032 Oct, [address] [id number] [place] [address] [id number]- [id number] Oct, Major depressive disorder, recurrent episode, moderate 296.32 ; Anxiety disorder, unspecified 300.00 and Persistent disorder of initiating or maintaining sleep 307.42 [id number] [place] [address] 30841- 7149 September, Diabetes with other specified manifestations, type II or unspecified type, not stated as uncontrolled 250.80 ; Memory loss 780.93 and Cognitive complaints 799.[id number] [place] [address] 1167 September, No condition on [place] II V71.09 ; Major depression, recurrent 296.30 and Persistent mood [affective] disorder, unspecified 296.90 [id number] [place] [address]- 2236 Aug, [address] [place] [address] 3700 14 Aug, 2014 [facility] [place] [facility] [address] [id number] [place] [address]- 2790 13 Aug, 2014 [facility] [place] [facility] [address] [id number] [place] [address]- 4351 Jul, 2014 [facility] [place] [facility] [address] [facility] [id number] [place] [address]- 9062 Jul, 2014 [facility] [place] [facility] [address] [id number] [place] [address]- 5499 Jul, [facility] [place] [facility] [address] [id number] [place] [address]- 8675 Jul, [facility] [place] [facility] [address] [facility] [id number] [place] [address]- 5743 Jul, [facility] [place] [facility] [address] [id number] [address] 5464 18 Jun, 2014 [facility] [place] [facility] [address] [facility] [id number] [place] [address]- 1773 Jun, 2014 [facility] [place] [facility] [address] [id number] [place] [address] 9416 Jun, 2014 [facility] [place] [facility] [address] [facility] [id number] [place] [address]- 1290 Jun, 2014 [facility] [place] [facility] [address] [facility] [id number] [place] [address]- 9212 Jun, 2014 [facility] [place] [facility] [address] [facility] [id number], [place] [address] 0[address] Jun, 2014 [facility] [place] [facility] [address] [facility] [id number] [place] [address]- 1283 Jun, 2014 [facility] [place] [facility] [address] [facility] [id number], [place] [address]- 2526 Jun, 2014 [facility] [place] [facility] [address] [id number] [address]- 2413 Jun, 2014 [facility] [place] [facility] [address] [id number] [place] [address]- 1004 Jun, 2014 [facility] [place] [facility] [address] [id number] [place] [address]- 8275 Jun, 2014 [facility] [place] [facility] [address] [id number] [place] [address]- 7269 Jun, 2014 [facility] [place] [facility] [address] [id number] [place] [address]- 4395 Jun, 2014 [facility] [place] [facility] [address] [id number] [place] [address]- 8874 May, [facility] [place] [facility] [address] [id number] [place] [address]- 6090 May, [facility] [place] [facility] [address] [id number] [place] [address]- 4100 Apr, [facility] [place] [facility] [address] [id number] [place] [address]- 5436 Apr, [facility] [place] [facility] [address] [id number] [place] [address]- 4676 Apr, [facility] [place] [facility] [address] [facility] [id number] [place] [address]- 7061 Apr, [facility] [place] [facility] [address] [id number] [place] [address]- 0575 Apr, [facility] [place] [facility] [address] [id number] [place] [address]- 1791 Apr, [facility] [place] [facility] [address] [id number] [place] [address]- 0115 Apr, [facility] [place] [facility] [address] [id number] [place] [address]- 8899 Apr, [facility] [place] [facility] [address] [facility] [id number] [place] [address]- 5732 15 Apr, 2014 [facility] [place] [facility] [address] [id number] [place] [address]- 0719 15 Apr, 2014 [facility] [place] [facility] [address] [id number] [place] [address]- 7895 Apr, [facility] [place] [facility] [address] [id number] [place] [address]- 1266 Apr, [facility] [place] [facility] [address] [id number] [place] [address]- 5279 Apr, [facility] [place] [facility] [address] [id number] [place] [address]- 2245 Apr, [facility] [place] [facility] [address] [id number] [place] [address]- 1528 Apr, [facility] [place] [facility] [address] [id number] [place] [address]- 6441 Apr, [facility] [place] [facility] [address] [id number] [place] [address]- 5987 Apr, [facility] [place] [facility] [address] [id number] [place] [address]- 7985 Apr, [facility] [place] [facility] [address] [id number] [place] [address]- 3268 Apr, [facility] [place] [facility] [address] [id number] [place] [address]- 1414 Apr, [facility] [place] [facility] [address] [id number] [place] [address]- 5433 Mar, [facility] [place] [facility] [address] [id number] [place] [address]- 4513 Mar, [facility] [place] [facility] [address] [id number] [place] [address]- 9733 Mar, [facility] [place] [facility] [address] [id number] [place] [address]- 8197 Mar, [facility] [place] [facility] [address] [id number] [place] [address]- 0132 Mar, [facility] [place] [facility] [address] [id number] [place] [address]- 1924 Mar, [facility] [place] [facility] [address] [id number] [place] [address]- 6945 Mar, [facility] [place] [facility] [address] [id number] [place] [address]- 8323 Mar, [facility] [place] [facility] [address] [id number] [place] [address]- 2217 Mar, [facility] [place] [facility] [address] [id number] [place] [address]- 5692 Mar, [facility] [place] [facility] [address] [id number] [place] [address]- 0640 Mar, [facility] [place] [facility] [address] [id number] [place] [address]- 1193 Mar, [facility] [place] [facility] [address] [id number] [place] [address]- 8439 Mar, [facility] [place] [facility] [address] [id number] [place] [address]- 4316 Feb, [facility] [place] [facility] [address] [id number] [place] [address]- 6970 Feb, [facility] [place] [facility] [address] [id number] [place] [address]- 4979 Feb, [facility] [place] [facility] [address] [id number], [place] [address]- 6855 Feb, [facility] [place] [facility] [address] [id number] [place] [address]- 8558 Feb, [facility] [place] [facility] [address] [id number] [place] [address]- 8991 Feb, [facility] [place] [facility] [address] [id number] [place] [address]- 6845 Feb, [facility] [place] [facility] [address] [id number] [place] [address]- 8889 Feb, [facility] [place] [facility] [address] [id number] [place] [address]- 8797 Feb, [facility] [place] [facility] [address] [id number] [place] [address]- 9672 Feb, [facility] [place] [facility] [address] [id number] [place] [address]- 7660 Feb, [facility] [place] [facility] [address] [id number] [place] [address]- 1597 10 Feb, 2014 [facility] [place] [facility] [address] [id number] [place] [address]- 8942 10 Feb, 2014 [facility] [place] [facility] [address] [id number] [place] [address]- 5346 Feb, [facility] [place] [facility] [address] [id number] [place] [address]- 1134 07 Feb, 2014 [facility] [place] [facility] [address] [id number] [place] [address]- 1300 10 Jan, 2013 [facility] [place] [facility] [address] [id number] [place] [address]- 0454 08 Jan, 2013 [facility] [place] [facility] [address] [id number] [place] [address]- 1872 08 Jan, 2013 [facility] [place] [facility] [address] [id number] [place] [address]- 6062 08 Jan, 2013 [facility] [place] [facility] [address] [id number] [place] [address]- 7519 08 Jan, 2013 [facility] [place] [facility] [address] [id number] [place] [address]- 3824 Dec, [facility] [place] [facility] [address] [id number] [place] [address]- 3923 Dec, [facility] [place] [facility] [address] [id number] [place] [address]- 1051 Dec, [facility] [place] [facility] [address] [id number] [place] [address]- 0824 Dec, [facility] [place] [facility] [address] [id number] [place] [address] Nov, [facility] [place] [facility] [address] [id number] [place] [address]- 2422 Nov, [facility] [place] [facility] [address] [id number] [place] [address]- 9418 Nov, [facility] [place] [facility] [address] [id number] [place] [address]- 0090 Nov, [facility] [place] [facility] [address] [id number] [place] [address]- 7925 Nov, [facility] [place] [facility] [address] [id number] [place] [address]- 0248 Nov, [facility] [place] [facility] [address] [id number] [place] [address]- 0775 Nov, [facility] [place] [facility] [address] [id number] [place] [address]- 6353 Nov, [facility] [place] [facility] [address] [id number] [place] [address]- 1631 Nov, [facility] [place] [facility] [address] [id number] [place] [address]- 8044 Nov, [facility] [place] [facility] [address] [id number] [place] [address]- 5857 Oct, [facility] [place] [facility] [address] [id number] [place] [address]- 8933 Oct, [facility] [place] [facility] [address] [id number] [place] [address]- 7875 September, [facility] [place] [facility] [address] [id number] [place] [address]- 5444 September, [facility] [place] [facility] [address] [id number] [place] [address]- 9128 September, [facility] [place] [facility] [address] [id number] [place] [address]- 6779 September, [facility] [place] [facility] [address] [id number] [place] [address]- 5535 16 Aug, 2013 [facility] [place] [facility] [address] [id number] [place] [address]- 8290 Aug, [facility] [place] [facility] [address] [id number] [place] [address]- 7127 Aug, [facility] [place] [facility] [address] [id number] [place] [address]- 5287 Jul, [facility] [place] [facility] [address] [id number] [place] [address]- 1069 24 Jul, 2013 [facility] [place] [facility] [address] [id number] [place] [address]- 9719 Jul, [facility] [place] [facility] [address] [id number] [place] [address]- 1766 Jul, [facility] [place] [facility] [address] [id number] [place] [address]- 9699 May, [facility] [place] [facility] [address] [id number] [place] [address]- 1124 May, [facility] [place] [facility] [address] [id number], [place] [address]- 7134 May, [facility] [place] [facility] [address] [id number], [place] [address]- 4173 15 Mar, 2013 [facility] [place] [facility] [address] [id number] [place] [address]- 2174 15 Mar, 2013 [facility] [place] [facility] [address] [id number], [place] [address]- 3640 13 Mar, 2013 [facility] [place] [facility] [address] [id number] [place] [address]- 8274 Mar, [facility] [place] [facility] [address] [id number] [place] [address]- 4432 Feb, [facility] [address] [id number] [place] [address]- 7023 Feb, [facility] [place] [facility] [address] [id number] [place] [address]- 6310 Feb, [facility] [place] [facility] [address] [id number] [place] [address]- 3144 Jan, [facility] [place] [facility] [address] [id number] [place] [address]- 0113 Jan, [facility] [place] [facility] [address] [id number] [place] [address]- 6220 Jan, [facility] [place] [facility] [address] [id number] [place] [address]- 9779 Dec, [facility] [place] [facility] [address] [id number] [place] [address]- 7921 Dec, [facility] [place] [facility] [address] [id number] [place] [address]- 2512 Dec, [facility] [place] [facility] [address] [id number] [place] [address]- 4575 Dec, [facility] [place] [facility] [address] [id number] [place] [address]- 0220 Nov, [facility] [place] [facility] [address] [id number] [place] [address]- 6199 Oct, [facility] [place] [facility] [address] [id number] [place] [address] 2548 Oct, [facility] [place] [facility] [address] [id number] [place] [address]- 0664 September, [facility] [place] [facility] [address] [id number] [place] [address]- 9214 September, [facility] [place] [facility] [address] [id number] [place] [address]- 3214 September, [facility] [place] [facility] [address] [id number] [place] [address]- 4178 30 Aug, 2012 [facility] [address] [id number] [place] [address]- 6984 18 Aug, 2012 [facility] [address] [id number] [place] [address]- 5262 Aug, [facility] [address] [id number] [place] [address]- 1809 Aug, [facility] [address] [id number] [place] [address]- 0081 Jul, [facility] [address] [id number] [place] [address]- 8092 Jul, [facility] [address] [id number] [place] [address]- 4496 Jul, [facility] [address] [id number] [place] [address]- 0233 15 Jul, 2012 [facility] [address] [id number] [place] [address]- 0971 14 Jul, 2012 [facility] [address] [id number] [place] [address]- 4211 Jul, [facility] [address] [id number] [place] [address]- 8127 Jul, [facility] [address] [id number] [place] [address]- 6328 Jun, [facility] [place] [facility] [address] [id number] [place] [address]- 0478 Jun, [facility] [place] [facility] [address] [id number] [place] [address]- 4796 Jun, [facility] [place] [facility] [address] [id number] [place] [address]- 5816 Jun, [facility] [address] [id number] [place] [address]- 6448 31 May, 2012 [facility] [address] [id number] [place] [address]- 6961 30 May, 2012 [facility] [place] [facility] [address] [id number] [place] [address]- 8570 30 May, 2012 [facility] [place] [facility] [address] [id number] [place] [address]- 8751 May, [facility] [place] [facility] [address] [id number] [place] [address]- 9532 May, [facility] [place] [facility] [address] [id number] [place] [address]- 4116 Apr, [facility] [place] [facility] [address] [id number] [place] [address]- 1671 Apr, [facility] [address] [id number] [place] [address]- 2059 Mar, [facility] [place] [facility] [address] [id number] [place] [address]- 9172 Mar, [facility] [place] [facility] [address] [id number] [place] [address]- 9202 Mar, [facility] [place] [facility] [address] [facility] [id number] [place] [address]- 7482 Mar, [facility] [place] [facility] [address] [id number] [place] [address]- 3840 Mar, [facility] [place] [facility] [address] [id number] [place] [address]- 8444 Mar, [facility] [place] [facility] [address] [id number] [place] [address]- 8930 Mar, [facility] [place] [facility] [address] [id number] [place] [address]- 3632 Mar, [facility] [place] [facility] [address] [id number] [place] [address]- 2787 Mar, [facility] [place] [facility] [address] [id number] [place] [address]- 5554 Mar, [facility] [place] [facility] [address] [id number] [place] [address]- 7563 Feb, [facility] [place] [facility] [address] [id number] [place] [address]- 0186 Feb, [facility] [place] [facility] [address] [id number] [place] [address]- 3887 Feb, [facility] [place] [facility] [address] [id number] [place] [address]- 1176 Feb, [facility] [place] [facility] [address] [id number] [place] [address]- 2037 Feb, [facility] [place] [facility] [address] [id number] [place] [address]- 2688 Feb, [facility] [place] [facility] [address] [id number] [place] [address]- 0075 Feb, [facility] [place] [facility] [address] [id number] [place] [address]- 5527 Jan, [facility] [place] [facility] [address] [id number] [place] [address]- 3343 Jan, [facility] [place] [facility] [address] [id number] [place] [address]- 5452 Dec, [facility] [place] [facility] [address] [id number] [place] [address]- 4559 Dec, [facility] [place] [facility] [address] [id number] [place] [address]- 6978 Dec, [facility] [place] [facility] [address] [id number] [place] [address]- 6346 Dec, [facility] [place] [facility] [address] [id number] [place] [address]- 4156 Dec, [facility] [place] [facility] [address] [id number] [place] [address]- 7033 Dec, [facility] [place] [facility] [address] [id number] [place] [address]- 9221 Nov, [facility] [place] [facility] [address] [id number] [place] [address]- 7686 Nov, [facility] [place] [facility] [address] [id number] [place] [address]- 8465 Nov, [facility] [place] [facility] [address] [id number] [place] [address]- 8843 Nov, [facility] [place] [facility] [address] [id number] [place] [address]- 9708 September, [facility] [place] [facility] [address] [id number] [place] [address]- 1466 September, [facility] [place] [facility] [address] [id number] [place] [address]- 0591 September, [facility] [place] [facility] [address] [id number] [place] [address]- 5924 Jul, [facility] [place] [facility] [address] [id number] [place] [address]- 9159 Jun, [facility] [place] [facility] [address] [id number] [place] [address]- 8138 Jun, [facility] [place] [facility] [address] [id number] [place] [address]- 5971 Jun, [facility] [place] [facility] [address] [id number] [place] [address]- 7884 Apr, [facility] [place] [facility] [address] [id number] [place] [address]- 2008 Mar, [facility] [place] [facility] [address] [id number] [place] [address]- 0472 Mar, [facility] [place] [facility] [address] [id number] [place] [address]- 3506 Feb, [facility] [place] [facility] [address] [facility] [id number] [place] [address]- 0868 31 Feb, 2011 [facility] [address] [facility] [id number][place] [address] [address] Feb, [facility] [address] [facility] [id number][place] [address] 5602 Jul, [facility] [address] [facility] [id number], [place] [address]- 7457 Feb, IMMUNIZATIONS No Known Immunizations SOCIAL HISTORY Never Assessed REASON FOR VISIT PLAN OF CARE VITAL SIGNS MEDICATIONS Medication Instructions Dosage Frequency Start Date End Date Duration Status Diflucan 150 MG Orally Once a day 1 tablet 24h Dec, 03 days Active RESULTS No Results PROCEDURES No [...]
--- OUTSIDE RECORDS SUMMARY | 2018-05-09 22:41 | XMS REPORT ---
Author Author MACY TAMAYO [facility] Address [address] [place] [address] Care Team Providers Care Cash Applications Associate Name Role Phone MACY TAMAYO Unavailable PROBLEMS Type Condition ICD9-CM Code CSF14-SX Code Onset Dates Condition Status SNOMED Code Problem Controlled type 2 diabetes mellitus without complication, without long -term current use of insulin E11.9 Active 944930603 Problem Body mass index (BMI) of 45.0-49.9 in adult Z68.42 Active 836601401 Problem Tachycardia with heart rate 121-140 beats per minute R00.0 Active 5735832 Problem Facial droop R29.810 Active 50414459 Problem Menopause Z78.0 Active 148280656 Problem Gait disturbance R26.9 Active 03054869 Problem Dermatomyositis M33.90 Active 108805100 Problem Enlarged thyroid gland E04.9 Active 1752556 Problem Lumbago with sciatica, right side M54.41 Active 183161322 Problem Morbid (severe) obesity due to excess calories E66.01 Active 955836897 Problem Diabetes type 2, controlled E11.9 Active 09485211 Problem Osteoarthritis of right knee, unspecified osteoarthritis type M17.9 Active 872190040 Problem Allergic rhinitis due to pollen J30.1 Active 31281247 Problem Mood disorder F39 Active 59682514 Problem Arthritis M19.90 Active 3039099 Problem Plantar warts B07.0 Active 35075531 Problem Anxiety F41.9 Active 65473199 Problem Plantar wart of both feet B07.0 Active [id number] Problem Other chronic pain G89.29 Active 87719535 Problem Lumbago with sciatica, left side M54.42 Active [id number] ALLERGIES No Information ENCOUNTERS Encounter Location Date Diagnosis [facility] [address] [facility] [id number] [address] Mar, [facility] [address] [facility] [id number] [place] [address] 77367- 1215 Feb, [facility] [address] [place] [id number] [place] [address] 03473- 9712 Feb, [facility] [id number] [place] [address] 63340- 2075 28 Jan, 2018 [facility] [address] [place] [id number] [place] [address] 05822- 9167 Jan, [facility] [address] 50575- 0017 Jan, [facility] [address] [id number] [place] [address] 07354- 9079 Jan, 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 [facility] [id number] [place] [address] 57020- 2948 Jan, [facility] [address] 09831- 7331 Jan, [facility] [address] [id number] [place] [address] 81426- 9015 Jan, [facility] [address] 30300- 5925 19 Jan, 2018 Allergic reaction to drug, initial encounter T78.40XA [facility] [id number] [place] [address] 53815- 5192 17 Jan, 2018 BMI 45.0-49.9, adult Z68.42 and Facial droop R29.810 [facility] [id number] [place] [address] 20451- 1987 14 Jan, 2018 Mood disorder F39 [facility] [address] 49875- 4566 11 Jan, 2018 Dermatomyositis M33.90 and BMI 40.0-44.9, adult Z68.41 [facility] [id number] [place] [address] 53289- 8371 10 Jan, 2018 [place] [address] 19603- 6119 Jan, [place] [address] 04156- 2476 Jan, Irritation of left eye H57.8 and BMI 40.0-44.9, adult Z68.41 [place] [address] 31668- 8654 Dec, Diabetes type 2, controlled E11.9 [place] [address] 33830- 3803 Dec, Acute right ankle pain M25.571 [place] [address] 91819- 8739 Dec, Other chronic pain G89.29 ; Diabetes type 2, controlled E11.9 ; Gait disturbance R26.9 ; Weakness R53.1 and Muscle spasm M62.838 [place] [address] 40025- 2384 Dec, Acute non-recurrent maxillary sinusitis J01.00 [place] [address] 90362- 3468 Dec, [place] [address] 69517- 8913 Dec, [place] [address] 61585- 7285 Dec, Acute non-recurrent maxillary sinusitis J01.00 [place] [address] 90809- 2872 Dec, Lumbago with sciatica, right side M54.41 and Lupus erythematosus L93.0 [place] [address] 39423- 5069 Dec, Mood disorder F39 [place] [address] 51728- 4591 Dec, Mood disorder F39 [facility] [address] [address] 1565 Dec, [facility] [id number] [place] [address] 77451- 4452 Dec, Acute right ankle pain M25.571 [facility] [address] [place] [id number] [place] [address] 73042- 7914 Nov, Lumbar radiculopathy M54.16 [facility] [id number] [place] [address] 29583- 3641 Nov, [facility] [id number] [place] [address] 26589- 0167 Nov, Mood disorder F39 [facility] [id number] [place] [address] 77349- 5658 Nov, Lumbago with sciatica, right side M54.41 and Other chronic pain G89.29 [facility] [id number] [place] [address] 50705- 3078 Nov, Acute right ankle pain M25.571 [facility] [id number] [place] [address] 81483- 0947 Nov, [facility] [id number] [place] [address] 24732- 8179 Oct, [facility] [id number] [place] [address] 68038- 0520 Oct, Plantar wart of both feet B07.0 [facility] [address] [place] [address] 85083- 2643 Oct, [facility] [id number] [place] [address] 18814- 3836 Oct, Acute right ankle pain M25.571 and Plantar wart of both feet B07.0 [facility] [id number] [place] [address] 74535- 7150 September, Other chronic pain G89.29 [facility] [id number] [place] [address] 64434- 0375 September, Other chronic pain G89.29 [facility] [id number] [place] [address] 93218- 7090 September, Other chronic pain G89.29 [facility] [address] 32071- 8154 Aug, Mood disorder F39 [place] [address] 34064- 3112 Aug, Other chronic pain G89.29 ; Controlled type 2 diabetes mellitus without complication, without long-term current use of insulin E11.9 ; Low back pain M54.5 and Tinea corporis B35.4 [place] [address] 40721- 2914 Aug, Mood disorder F39 and Anxiety F41.9 [place] [address] [place] [id number] [place] [address] 86374- 0573 Aug, Mood disorder F39 and Anxiety F41.9 [place] [address] [place] [id number] [place] [address] 94207- 0889 Jul, [facility] [id number] [place] [address] 92911 -8460 Jul, Scabies B86 and BMI 45.0-49.9, adult Z68.42 [place] [address] [place] [address] [id number] [place] [address] 35298- 1709 Jul, [place] [address] 81249- 4471 Jul, Mood disorder F39 and Anxiety F41.9 [place] [address] [place] [id number] [place] [address] 90440- 6345 Jul, [facility] [id number] [place] [address] 27 Jun, 2017 Bronchitis J40 ; Dark urine R82.99 and BMI 45.0-49.9, adult Z68.42 [place] [address]29- 9577 14 Jun, 2017 Acute pain of right shoulder M25.511 and Acute pain of right knee M25.561 [place] 48067446- 0336 May, BMI 40.0-44.9, adult Z68.41 ; Controlled type 2 diabetes mellitus without complication, without long-term current use of insulin E11.9 ; Muscle cramping R25.2 ; Hot flashes R23.2 ; Mood disorder F39 ; Anxiety F41.9 and Morbid (severe) obesity due to excess calories E66.[address] 76598- 1068 May, BMI 40.0-44.9, adult Z68.41 ; Controlled type 2 diabetes mellitus without complication, without long-term current use of insulin E11.9 ; Muscle cramping R25.2 and Hot flashes R23.2 [place] [id number] [place] [address] 95144- 2808 May, Tachycardia with heart rate 121-140 beats per minute R00.0 ; Morbid (severe) obesity due to excess calories E66.01 ; Diabetes type 2, controlled E11.9 and Enlarged thyroid gland E04.[address] 14753- 0085 May, Encounter for well woman exam with [...] Dysuria R30.0 and Screening breast examination Z12.31 [facility] [id number] [place] [address] 09385- 3027 Apr, Mood disorder F39 ; Other chronic pain G89.29 and Anxiety F41.9 [facility] [id number] [place] [address] 53074- 2543 Apr, Lumbago with sciatica, left side M54.42 and Other chronic pain G89.29 [facility] [id number] [place] [address] 06730- 8793 Apr, Lupus erythematosus L93.0 [facility] [address] 653175- 7193 Mar, Plantar wart of both feet B07.0 [facility] [id number] [place] [address] 52272- 7290 Mar, Lupus erythematosus L93.0 and Sinus drainage J34.89 [facility] [id number] [place] [address] 56131- 0965 Mar, Mood disorder F39 ; Other chronic pain G89.29 and Anxiety F41.9 [facility] [id number] [place] [address] 18895- 9340 Mar, Mood disorder F39 ; Arthritis M19.90 and Plantar warts B07.0 [facility] [id number] [place] [address] 59458- 7101 Feb, Lupus erythematosus L93.0 [facility] [id number] [place] [address] 40617- 2543 Feb, Other chronic pain G89.29 [facility] [id number] [place] [address] 73442- 4847 Feb, Mood disorder F39 and Anxiety F41.9 [facility] [id number] [place] [address] 00789- 2813 Jan, [facility] [id number] [place] [address] 67694- 4809 Jan, Mood disorder F39 [facility] [id number] [place] [address] 84724- 1587 Dec, Nail, ingrown L60.0 [facility] [id number] [place] [address] 05978- 4565 Dec, Nail, ingrown L60.0 [facility] [id number] [place] [address] 13739- 3619 Nov, Mood disorder F39 and Anxiety F41.9 [facility] [address] [place] [id number] [place] [address] 29483- 3549 Nov, Sinus drainage J34.89 ; Hot flashes R23.2 ; Anxiety F41.9 and Diabetes type 2, controlled E11.9 [facility] [id number] [place] [address] 92139- 6720 Nov, Nail, ingrown L60.0 [facility] [address] [id number] [place] [address] 42542- 4985 Oct, Anxiety F41.9 and Mood disorder F39 [facility] [address] [id number] [place] [address] 99162- 9330 Oct, Nail, ingrown L60.0 and Anxiety F41.9 [facility] [id number] [place] [address] 66390- 4625 Oct, Lupus erythematosus L93.0 [facility] [id number] [place] [address] 10735- 1052 September, [facility] [address] 60632- 9506 September, [facility] [id number] [place] [address] 19485- 9523 September, Lupus erythematosus L93.0 [facility] [id number] [place] [address] 52422- 8374 Aug, [facility] [id number] [place] [address] 49415- 1836 Aug, Mood disorder F39 and Anxiety F41.9 [facility] [address] [id number] [place] [address] 96838- 3396 Aug, Lupus erythematosus L93.0 ; Diabetes type 2, controlled E11.9 and Localized edema R60.0 [facility] [address] [id number] [place] [address] 60043- 0503 Aug, [place] [address] [place] [id number] [place] [address] 31418- 0651 Jul, Anxiety F41.9 and Mood disorder F39 [place] [address] [place] [id number] [place] [address] 85144- 3422 Jul, Diabetes type 2, controlled E11.9 [facility] [address] [place] [id number] [place] [address] 36579- 1050 Jun, Anxiety F41.9 [place] [address] [place] [id number] [place] [address] 96846- 5226 May, [place] [address] [place] [id number] [place] [address] 25675- 2694 May, [place] [address] [place] [address] 05452- 3689 May, Nausea R11.0 ; Other chronic pain G89.29 and Pain in right knee M25.561 [place] [address] [place] [address] 53766- 8678 May, [place] [address] [place] [id number] [place] [address] 71136- 4743 Apr, Tear of medial meniscus of right knee, current, unspecified tear type, subsequent encounter S83.241D and Tear of lateral meniscus of right knee, current, unspecified tear type, subsequent encounter S83.281D [place] [address] [place] [id number] [place] [address] 33454- 2581 Apr, Anxiety F41.9 and Mood disorder F39 [facility] [address] 45162- 6525 Apr, Anxiety F41.9 [facility] [id number] [place] [address] 90092- 2105 Apr, [facility] [address] 05618- 5959 Mar, [facility] [address] 68768- 9153 Mar, Lupus erythematosus L93.0 and Diabetes type 2, controlled E11.9 [facility] [address] 81457- 1099 Mar, Mood disorder F39 [facility] [address] 53063- 6265 Mar, Tear of lateral meniscus of right knee, current, unspecified tear type, initial encounter S83.281A and Osteoarthritis of right knee, unspecified osteoarthritis type M17.9 [facility] [address] 26063- 7614 Mar, [facility] [id number] [place] [address] 07642- 6808 Feb, Mood disorder F39 [facility] [address] 10653- 1148 Feb, Rash R21 [facility] [id number] [place] [address] 00253- 0741 Feb, [facility] [address] 66631- 1412 Jan, Other chronic pain G89.29 and Muscle spasm M62.838 [facility] [address] [id number] [place] [address] 05323- 0150 Jan, Mood disorder F39 [place] [address] [address]- 3365 Jan, Pain in right knee M25.561 ; Other chronic pain G89.29 and Muscle spasm M62.838 [place] [address], [place] [address]- 2062 Dec, [place] [address] [place] [id number] [place] [address] 54409- 9892 Dec, [place] [address] [place] [id number] [place] [address] 12908- 6131 Nov, [place] [address] [place] [id number] [place] [address] 61365- 1183 Nov, Mood disorder F39 [place] [address] [place] [id number] [place] [address] 43608- 0930 Nov, Diabetes type 2, controlled E11.9 ; Bronchitis J40 ; Edema, unspecified type R60.9 ; Weight gain R63.5 and Right knee pain, unspecified chronicity M25.561 [place] [address] [place] [id number] [place] [address] 09881- 0622 Oct, Mood disorder F39 [place] [address] [place] [id number] [place] [address] 88248- 9962 Oct, Lupus erythematosus L93.0 and Bilateral edema of lower extremity R60.0 [place] [address] [place] [id number] [place] [address] 70420- 0670 Oct, Mood disorder F39 and Anxiety F41.9 [place] [address] [place] [address] 20335- 9164 September, Mood disorder F39 ; Anxiety F41.9 and Anger reaction R45.4 [place] [address] [place] [address] 54095- 4312 September, Diabetes type 2, controlled E11.9 ; Edema, unspecified type R60.9 and Fatigue, unspecified type R53.83 [place] [address] [place] [id number] [place] [address] 16464- 2087 Aug, Mood disorder F39 and Generalized anxiety disorder F41.1 [facility] [address] [id number] [place] [address] 82597- 4123 Aug, Diabetes type 2, controlled E11.9 ; Sinusitis J32.9 and Mood disorder F39 [facility] [address] [id number] [place] [address] 90817- 7814 Aug, Lupus erythematosus L93.0 [facility] [address] [place] [id number] [place] [address] 99554- 1577 Aug, [facility] [address] [place] [id number] [place] [address] 45792- 4389 Aug, [facility] [address] [place] [id number] [place] [address] 24373- 6244 Jul, Diabetes type 2, controlled E11.9 [facility] [address] [id number] [place] [address] 40858- 0132 Jul, Mood disorder F39 and Depression F32.9 [facility] [address] [id number] [place] [address] 21931- 1776 Jul, Lupus erythematosus L93.0 and Diabetes type 2, controlled E11.9 [facility] [address] [id number] [place] [address] 38922- 3229 Jul, Mood disorder F39 and Anxiety F41.9 [facility] [address] [id number] [place] [address] 68747- 0844 Jul, [facility] [address] [id number] [place] [address] 68454- 4502 Jul, [facility] [address] [id number] [place] [address] 86202- 0050 Jun, Mood disorder F39 and Anxiety F41.9 [facility] [address] [id number] [place] [address] 53131- 7205 Jun, Mood disorder F39 [facility] [address] [address]- 2986 Jun, [facility] [address] [id number] [place] [address] 94721- 4760 Jun, [facility] [id number] [place] [address] 08057- 3456 Jun, Mood disorder F39 [facility] [id number] [place] [address] 81595- 9324 Jun, [facility] [id number] [place] [address] 97399- 1277 May, [facility] [id number] [place] [address] 45983- 0024 May, [facility] [id number] [place] [address] 11271- 4803 May, [facility] [address] [id number] [place] [address] 36541- 7090 May, [facility] [address] [place] [id number] [place] [address] 20859- 0666 May, Anxiety F41.9 ; Dermatomyositis M33.90 and Diabetes type 2, controlled E11.9 [facility] [address] [address] May, Sinusitis J32.9 and Cough R05 [facility] [address] [address]- 4215 May, Mood disorder F39 [facility] [address] [place] [address] 03941- 9008 May, Adjustment disorder with mixed anxiety and depressed mood F43.23 [facility] [address] [address]- 9191 Apr, [facility] [address] [id number] [place] [address] 37144- 2340 Apr, [facility] [address] [place] [address] 45104- 2364 Apr, Generalized anxiety disorder F41.1 and Mood disorder F39 [facility] [address] [id number] [place] [address] 97020- 8035 Mar, [facility] [id number] [place] [address] 77446- 6707 Mar, [facility] [id number] [place] [address] 74500- 0118 Mar, [facility] [id number] [place] [address] 51918- 8105 Mar, Mood disorder F39 [facility] [id number] [place] [address] 78494- 5663 Feb, [facility] [id number] [place] [address] 45941- 4525 Feb, Diabetes E11.9 and Bronchitis J40 [facility] [id number] [place] [address] 57651- 6025 Feb, [facility] [id number] [place] [address] 57859- 5290 Feb, [facility] [address] [place] [address] 80188- 4156 Feb, Major depression, recurrent, full remission F33.42 and KELLY ( generalized anxiety disorder) F41.1 [facility] [address] [place] [address] 52922- 1732 Feb, [facility] [id number] [place] [address] 93577- 2824 Feb, Single major depressive episode, in partial or unspecified remission F32.5 [facility] [address] [address]- 6115 Jan, Fatigue 780.79 [facility] [id number] [place] [address] 07686- 7109 Jan, [place] [address] [place] [id number] [place] [address] 22158- 4414 Jan, Diabetes with other specified manifestations, type II or unspecified type, not stated as uncontrolled 250.80 [place] [address] [place] [id number] [place] [address] [id number] [id number] Jan, [place] [address] [address]- [address] Dec, Hot flashes 627.2 ; Memory loss 780.93 and Joint pain 719.[address] [address]- [address] Dec, Major depression, recurrent 296.30 ; Generalized anxiety disorder 300.02 ; Adjustment disorder with depressed mood 309.0 and No condition on Sarah Ann II V71.09 [place] [id number] [place] [address] 17936- 8949 Dec, [place] [address] [place] [id number] [place] [address] 35288- 7589 Nov, Cognitive and neurobehavioral dysfunction 294.9 ; Major depressive disorder, recurrent episode, moderate degree 296.32 and Anxiety state , unspecified 300.00 [place] [id number] [place] [address] 11925- 4811 Nov, [place] [id number] [place] [address] 54164- 2842 Nov, Bronchitis 490 and Diabetes with other specified manifestations, type II or unspecified type, not stated as uncontrolled 250.80 [place] [id number] [place] [address] 51722- 3555 Nov, Major depressive disorder, recurrent episode, moderate 296.32 and Anxiety disorder, unspecified 300.[id number] [place] [address] 02676- 7628 Nov, Anxiety, generalized 300.02 ; Intermittent explosive disorder 312.34 ; No condition on Sarah Ann II V71.09 and No condition on axis III V71.09 [id number] [place] [address] 47698- 9229 Oct, Diabetes with other specified manifestations, type II or unspecified type, not stated as uncontrolled 250.80 ; Urinary tract infection, site not specified 599.0 and Bronchitis [address] [place] [id number] [place] [address] 42130- 0189 Oct, Intermittent explosive disorder 312.34 ; Bipolar 1 disorder , depressed, moderate 296.52 ; Major depression, chronic 296.20 ; No condition on Sarah Ann II V71.09 and No condition on axis III V71.09 [place] [id number] [place] [address] 85386- 3090 Oct, Major depressive disorder, recurrent episode, moderate 296.32 ; Anxiety state 300.00 ; Cognitive decline 294.9 and No condition on Sarah Ann II V71.09 [place] [id number] [place] [address] 45402- 2760 Oct, [place] [id number] [place] [address] 16410- 4616 Oct, Major depressive disorder, recurrent episode, moderate 296.32 ; Anxiety disorder, unspecified 300.00 and Persistent disorder of initiating or maintaining sleep 307.42 [place] [id number] [place] [address] 24478- 8573 September, Diabetes with other specified manifestations, type II or unspecified type, not stated as uncontrolled 250.80 ; Memory loss 780.93 and Cognitive complaints 799.59 [address] [id number] [place] [address]- [address] September, No condition on Sarah Ann II V71.09 ; Major depression, recurrent 296.30 and Persistent mood [affective] disorder, unspecified 296.90 [place] [id number] [place] [address]- [address]192 Aug, [address] [place] [address] 4367 14 Aug, 2014 [facility] [place] [facility] [address] [id number] [place] [address]- 5945 13 Aug, 2014 [facility] [place] [facility] [address] [id number] [place] [address]- 7193 Jul, 2014 [facility] [place] [facility] [address] [facility] [id number] [place] [address]- 6139 Jul, 2014 [facility] [place] [facility] [address] [id number] [place] [address]- 0115 Jul, [facility] [place] [facility] [address] [id number] [place] [address]- 8099 Jul, [facility] [place] [facility] [address] [facility] [id number] [place] [address]- 1302 Jul, [facility] [place] [facility] [address] [id number] [place] [address] 8618 18 Jun, 2014 [facility] [place] [facility] [address] [facility] [id number] [place] [address]- 3220 Jun, 2014 [facility] [place] [facility] [address] [id number] [place] [address]- 5262 Jun, 2014 [facility] [place] [facility] [address] [facility] [id number] [place] [address]- 0927 Jun, 2014 [facility] [place] [facility] [address] [facility] [id number] [place] [address]- 8102 Jun, 2014 [facility] [place] [facility] [address] [facility] [id number], [place] [address] 3106 Jun, 2014 [facility] [place] [facility] [address] [facility] [id number] [place] [address]- 3387 Jun, 2014 [facility] [place] [facility] [address] [facility] [id number], [place] [address] 1876 Jun, 2014 [facility] [place] [facility] [address] [id number] [address] 2102 Jun, 2014 [facility] [place] [facility] [address] [id number] [place] [address]- 2693 Jun, 2014 [facility] [place] [facility] [address] [id number] [place] [address]- 0044 Jun, 2014 [facility] [place] [facility] [address] [id number] [place] [address]- 8082 Jun, 2014 [facility] [place] [facility] [address] [id number] [place] [address]- 5817 Jun, 2014 [facility] [place] [facility] [address] [id number] [place] [address]- 6881 May, [facility] [place] [facility] [address] [id number] [place] [address]- 2134 May, [facility] [place] [facility] [address] [id number] [place] [address]- 2361 Apr, [facility] [place] [facility] [address] [id number] [place] [address]- 0646 Apr, [facility] [place] [facility] [address] [id number] [place] [address]- 9426 Apr, [facility] [place] [facility] [address] [facility] [id number] [place] [address]- 3678 Apr, [facility] [place] [facility] [address] [id number] [place] [address]- 5572 Apr, [facility] [place] [facility] [address] [id number] [place] [address]- 6733 Apr, [facility] [place] [facility] [address] [id number] [place] [address]- 1312 Apr, [facility] [place] [facility] [address] [id number] [place] [address]- 3868 Apr, [facility] [place] [facility] [address] [facility] [id number] [place] [address]- 1341 15 Apr, 2014 [facility] [place] [facility] [address] [id number] [place] [address]- 4408 15 Apr, 2014 [facility] [place] [facility] [address] [id number] [place] [address]- 0530 Apr, [facility] [place] [facility] [address] [id number] [place] [address]- 4736 Apr, [facility] [place] [facility] [address] [id number] [place] [address]- 0070 Apr, [facility] [place] [facility] [address] [id number] [place] [address]- 8074 Apr, [facility] [place] [facility] [address] [id number] [place] [address]- 3776 Apr, [facility] [place] [facility] [address] [id number] [place] [address]- 6165 Apr, [facility] [place] [facility] [address] [id number] [place] [address]- 4249 Apr, [facility] [place] [facility] [address] [id number] [place] [address]- 9211 Apr, [facility] [place] [facility] [address] [id number] [place] [address]- 7080 Apr, [facility] [place] [facility] [address] [id number] [place] [address]- 6090 Apr, [facility] [place] [facility] [address] [id number] [place] [address]- 1996 Mar, [facility] [place] [facility] [address] [id number] [place] [address]- 1367 Mar, [facility] [place] [facility] [address] [id number] [place] [address]- 3033 Mar, [facility] [place] [facility] [address] [id number] [place] [address]- 1185 Mar, [facility] [place] [facility] [address] [id number] [place] [address]- 7444 Mar, [facility] [place] [facility] [address] [id number] [place] [address]- 5392 Mar, [facility] [place] [facility] [address] [id number] [place] [address]- 6118 Mar, [facility] [place] [facility] [address] [id number] [place] [address]- 9346 Mar, [facility] [place] [facility] [address] [id number] [place] [address]- 1032 Mar, [facility] [place] [facility] [address] [id number] [place] [address]- 0556 Mar, [facility] [place] [facility] [address] [id number] [place] [address]- 1208 Mar, [facility] [place] [facility] [address] [id number] [place] [address]- 0118 Mar, [facility] [place] [facility] [address] [id number] [place] [address]- 6475 Mar, [facility] [place] [facility] [address] [id number] [place] [address]- 7348 Feb, [facility] [place] [facility] [address] [id number] [place] [address]- 1073 Feb, [facility] [place] [facility] [address] [id number] [place] [address]- 2843 Feb, [facility] [place] [facility] [address] [id number], [place] [address]- 8941 Feb, [facility] [place] [facility] [address] [id number] [place] [address]- 2914 Feb, [facility] [place] [facility] [address] [id number] [place] [address]- 3685 Feb, [facility] [place] [facility] [address] [id number] [place] [address]- 5388 Feb, [facility] [place] [facility] [address] [id number] [place] [address]- 5149 Feb, [facility] [place] [facility] [address] [id number] [place] [address]- 0088 Feb, [facility] [place] [facility] [address] [id number] [place] [address]- 5779 Feb, [facility] [place] [facility] [address] [id number] [place] [address]- 7205 Feb, [facility] [place] [facility] [address] [id number] [place] [address]- 3239 10 Feb, 2014 [facility] [place] [facility] [address] [id number] [place] [address]- 4805 10 Feb, 2014 [facility] [place] [facility] [address] [id number] [place] [address]- 3932 Feb, [facility] [place] [facility] [address] [id number] [place] [address]- 0605 07 Feb, 2014 [facility] [place] [facility] [address] [id number] [place] [address]- 6493 10 Jan, 2013 [facility] [place] [facility] [address] [id number] [place] [address]- 7053 08 Jan, 2013 [facility] [place] [facility] [address] [id number] [place] [address]- 6307 08 Jan, 2013 [facility] [place] [facility] [address] [id number] [place] [address]- 6579 08 Jan, 2013 [facility] [place] [facility] [address] [id number] [place] [address]- 2693 08 Jan, 2013 [facility] [place] [facility] [address] [id number] [place] [address]- 1427 Dec, [facility] [place] [facility] [address] [id number] [place] [address]- 2965 Dec, [facility] [place] [facility] [address] [id number] [place] [address]- 8736 Dec, [facility] [place] [facility] [address] [id number] [place] [address]- 0597 Dec, [facility] [place] [facility] [address] [id number] [place] [address] Nov, [facility] [place] [facility] [address] [id number] [place] [address]- 2028 Nov, [facility] [place] [facility] [address] [id number] [place] [address]- 4178 Nov, [facility] [place] [facility] [address] [id number] [place] [address]- 4394 Nov, [facility] [place] [facility] [address] [id number] [place] [address]- 5091 Nov, [facility] [place] [facility] [address] [id number] [place] [address]- 1066 Nov, [facility] [place] [facility] [address] [id number] [place] [address]- 1815 Nov, [facility] [place] [facility] [address] [id number] [place] [address]- 0481 Nov, [facility] [place] [facility] [address] [id number] [place] [address]- 2204 Nov, [facility] [place] [facility] [address] [id number] [place] [address]- 7697 Nov, [facility] [place] [facility] [address] [id number] [place] [address]- 2982 Oct, [facility] [place] [facility] [address] [id number] [place] [address]- 1600 Oct, [facility] [place] [facility] [address] [id number] [place] [address]- 0392 September, [facility] [place] [facility] [address] [id number] [place] [address]- 8505 September, [facility] [place] [facility] [address] [id number] [place] [address]- 7371 September, [facility] [place] [facility] [address] [id number] [place] [address]- 0657 September, [facility] [place] [facility] [address] [id number] [place] [address]- 3065 16 Aug, 2013 [facility] [place] [facility] [address] [id number] [place] [address]- 3699 Aug, [facility] [place] [facility] [address] [id number] [place] [address]- 3796 Aug, [facility] [place] [facility] [address] [id number] [place] [address]- 1874 Jul, [facility] [place] [facility] [address] [id number] [place] [address]- 1385 24 Jul, 2013 [facility] [place] [facility] [address] [id number] [place] [address]- 9472 Jul, [facility] [place] [facility] [address] [id number] [place] [address]- 1801 Jul, [facility] [place] [facility] [address] [id number] [place] [address]- 7260 May, [facility] [place] [facility] [address] [id number] [place] [address]- 9411 May, [facility] [place] [facility] [address] [id number], [place] [address]- 3413 May, [facility] [place] [facility] [address] [id number], [place] [address]- 3726 15 Mar, 2013 [facility] [place] [facility] [address] [id number] [place] [address]- 4472 15 Mar, 2013 [facility] [place] [facility] [address] [id number][place] [address]- 5347 13 Mar, 2013 [facility] [place] [facility] [address] [id number] [place] [address]- 7905 Mar, [facility] [place] [facility] [address] [id number] [place] [address]- 8793 Feb, [facility] [address] [id number] [place] [address]- 8798 Feb, [facility] [place] [facility] [address] [id number] [place] [address]- 7565 Feb, [facility] [place] [facility] [address] [id number] [place] [address]- 1896 Jan, [facility] [place] [facility] [address] [id number] [place] [address]- 2262 Jan, [facility] [place] [facility] [address] [id number] [place] [address]- 5944 Jan, [facility] [place] [facility] [address] [id number] [place] [address]- 4930 Dec, [facility] [place] [facility] [address] [id number] [place] [address]- 9617 Dec, [facility] [place] [facility] [address] [id number] [place] [address]- 8627 Dec, [facility] [place] [facility] [address] [id number] [place] [address]- 5984 Dec, [facility] [place] [facility] [address] [id number] [place] [address]- 8921 Nov, [facility] [place] [facility] [address] [id number] [place] [address]- 0247 Oct, [facility] [place] [facility] [address] [id number] [place] [address] 2542 Oct, [facility] [place] [facility] [address] [id number] [place] [address]- 3603 September, [facility] [place] [facility] [address] [id number] [place] [address]- 8643 September, [facility] [place] [facility] [address] [id number] [place] [address]- 7959 September, [facility] [place] [facility] [address] [id number] [place] [address]- 3169 30 Aug, 2012 [facility] [address] [id number] [place] [address]- 0335 18 Aug, 2012 [facility] [address] [id number] [place] [address]- 5027 Aug, [facility] [address] [id number] [place] [address]- 4670 Aug, [facility] [address] [id number] [place] [address]- 8257 Jul, [facility] [address] [id number] [place] [address]- 9543 Jul, [facility] [address] [id number] [place] [address]- 5260 Jul, [facility] [address] [id number] [place] [address]- 3165 15 Jul, 2012 [facility] [address] [id number] [place] [address]- 3377 14 Jul, 2012 [facility] [address] [id number] [place] [address]- 6986 Jul, [facility] [address] [id number] [place] [address]- 8176 Jul, [facility] [address] [id number] [place] [address]- 6954 Jun, [facility] [place] [facility] [address] [id number] [place] [address]- 6768 Jun, [facility] [place] [facility] [address] [id number] [place] [address]- 2356 Jun, [facility] [place] [facility] [address] [id number] [place] [address]- 8906 Jun, [facility] [address] [id number] [place] [address]- 5676 31 May, 2012 [facility] [address] [id number] [place] [address]- 9412 30 May, 2012 [facility] [place] [facility] [address] [id number] [place] [address]- 0596 30 May, 2012 [facility] [place] [facility] [address] [id number] [place] [address]- 2368 May, [facility] [place] [facility] [address] [id number] [place] [address]- 1392 May, [facility] [place] [facility] [address] [id number] [place] [address]- 4974 Apr, [facility] [place] [facility] [address] [id number] [place] [address]- 5433 Apr, [facility] [address] [id number] [place] [address]- 4100 Mar, [facility] [place] [facility] [address] [id number] [place] [address]- 2531 Mar, [facility] [place] [facility] [address] [id number] [place] [address]- 9709 Mar, [facility] [place] [facility] [address] [facility] [id number] [place] [address]- 0566 Mar, [facility] [place] [facility] [address] [id number] [place] [address]- 9476 Mar, [facility] [place] [facility] [address] [id number] [place] [address]- 3716 Mar, [facility] [place] [facility] [address] [id number] [place] [address]- 0631 Mar, [facility] [place] [facility] [address] [id number] [place] [address]- 6097 Mar, [facility] [place] [facility] [address] [id number] [place] [address]- 5231 Mar, [facility] [place] [facility] [address] [id number] [place] [address]- 8635 Mar, [facility] [place] [facility] [address] [id number] [place] [address]- 8934 Feb, [facility] [place] [facility] [address] [id number] [place] [address]- 2816 Feb, [facility] [place] [facility] [address] [id number] [place] [address]- 7473 Feb, [facility] [place] [facility] [address] [id number] [place] [address]- 6403 Feb, [facility] [place] [facility] [address] [id number] [place] [address]- 1909 Feb, [facility] [place] [facility] [address] [id number] [place] [address]- 5651 Feb, [facility] [place] [facility] [address] [id number] [place] [address]- 6021 Feb, [facility] [place] [facility] [address] [id number] [place] [address]- 6536 Jan, [facility] [place] [facility] [address] [id number] [place] [address]- 7327 Jan, [facility] [place] [facility] [address] [id number] [place] [address]- 1107 Dec, [facility] [place] [facility] [address] [id number] [place] [address]- 0412 Dec, [facility] [place] [facility] [address] [id number] [place] [address]- 0483 Dec, [facility] [place] [facility] [address] [id number] [place] [address]- 1106 Dec, [facility] [place] [facility] [address] [id number] [place] [address]- 9616 Dec, [facility] [place] [facility] [address] [id number] [place] [address]- 7296 Dec, [facility] [place] [facility] [address] [id number] [place] [address]- 3891 Nov, [facility] [place] [facility] [address] [id number] [place] [address]- 8176 Nov, [facility] [place] [facility] [address] [id number] [place] [address]- 7985 Nov, [facility] [place] [facility] [address] [id number] [place] [address]- 1616 Nov, [facility] [place] [facility] [address] [id number] [place] [address]- 1480 September, [facility] [place] [facility] [address] [id number] [place] [address]- 9158 September, [facility] [place] [facility] [address] [id number] [place] [address]- 5216 September, [facility] [place] [facility] [address] [id number] [place] [address]- 1146 Jul, [facility] [place] [facility] [address] [id number] [place] [address]- 5712 Jun, [facility] [place] [facility] [address] [id number] [place] [address]- 6685 Jun, [facility] [place] [facility] [address] [id number] [place] [address]- 8566 Jun, [facility] [place] [facility] [address] [id number] [place] [address]- 4579 Apr, [facility] [place] [facility] [address] [id number] [place] [address] Mar, [facility] [place] [facility] [address] [id number] [place] [address] Mar, [facility] [place] [facility] [address] [id number] [place] [address] Feb, [facility] [place] [facility] [address] [facility] [id number] [place] [address] 31 Feb, 2011 [facility] [address] [facility] [id number][place] [address] 11 Feb, 2011 [facility] [address] [facility] [id number], [place] [address] 10 Jul, 2009 [facility] [address] [facility] [id number][place] [address] 20 Feb, 2008 IMMUNIZATIONS No Known Immunizations SOCIAL HISTORY Never Assessed REASON FOR VISIT Prior Authorization Request PLAN OF CARE VITAL SIGNS MEDICATIONS Unknown [...]
--- OUTSIDE RECORDS SUMMARY | 2018-05-09 22:42 | XMS REPORT ---
Author Author MACY TAMAYO [facility] Address [address] [place] [address] Care Team Providers Care Research Dietitian Name Role Phone MACY TAMAYO Unavailable PROBLEMS Type Condition ICD9-CM Code TGV92-AQ Code Onset Dates Condition Status SNOMED Code Problem Controlled type 2 diabetes mellitus without complication, without long -term current use of insulin E11.9 Active 069391357 Problem Body mass index (BMI) of 45.0-49.9 in adult Z68.42 Active 597942605 Problem Tachycardia with heart rate 121-140 beats per minute R00.0 Active 8724354 Problem Facial droop R29.810 Active 63838639 Problem Menopause Z78.0 Active 123416965 Problem Gait disturbance R26.9 Active 00583917 Problem Dermatomyositis M33.90 Active 699724353 Problem Enlarged thyroid gland E04.9 Active 1330884 Problem Lumbago with sciatica, right side M54.41 Active 119978368 Problem Morbid (severe) obesity due to excess calories E66.01 Active 794329495 Problem Diabetes type 2, controlled E11.9 Active 78447747 Problem Osteoarthritis of right knee, unspecified osteoarthritis type M17.9 Active 513504020 Problem Allergic rhinitis due to pollen J30.1 Active 36652100 Problem Mood disorder F39 Active 22179065 Problem Arthritis M19.90 Active 2278950 Problem Plantar warts B07.0 Active 71053206 Problem Anxiety F41.9 Active 72347565 Problem Plantar wart of both feet B07.0 Active 21566350193446296 Problem Other chronic pain G89.29 Active 51791555 Problem Lumbago with sciatica, left side M54.42 Active 638509710 ALLERGIES No Information ENCOUNTERS Encounter Location Date Diagnosis [facility] [address] [facility] [id number] [address] Mar, [facility] [address] [facility] [id number] [place] [address] 81384- 5668 Feb, [facility] [id number] [place] [address] 44215- 0114 Feb, [facility] [id number] [place] [address] 71941- 6504 28 Jan, 2018 [facility] [id number] [place] [address] 21856- 5484 Jan, [facility] [address] 94418- 6088 Jan, [facility] [id number] [place] [address] 07852- 5928 Jan, 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 [facility] [id number] [place] [address] 29513- 4400 Jan, [facility] [address] 67975- 4953 Jan, [facility] [id number] [place] [address] 26862- 8292 Jan, [facility] [address] 75820- 5263 19 Jan, 2018 Allergic reaction to drug, initial encounter T78.40XA [facility] [id number] [place] [address] 73351- 1987 17 Jan, 2018 BMI 45.0-49.9, adult Z68.42 and Facial droop R29.810 [facility] [id number] [place] [address] 33972- 6152 14 Jan, 2018 Mood disorder F39 [facility] [address] 99957- 1596 11 Jan, 2018 Dermatomyositis M33.90 and BMI 40.0-44.9, adult Z68.41 [facility] [id number] [place] [address] 65677- 6421 10 Jan, 2018 [place] [address] 96389- 8522 Jan, [place] [address] 24419- 2490 Jan, Irritation of left eye H57.8 and BMI 40.0-44.9, adult Z68.41 [place] [address] 54927- 2158 Dec, Diabetes type 2, controlled E11.9 [place] [address] 98464- 6838 Dec, Acute right ankle pain M25.571 [place] [address] 78188- 4768 Dec, Other chronic pain G89.29 ; Diabetes type 2, controlled E11.9 ; Gait disturbance R26.9 ; Weakness R53.1 and Muscle spasm M62.838 [place] [address] 66712- 2572 Dec, Acute non-recurrent maxillary sinusitis J01.00 [place] [address] 93087- 8816 Dec, [place] [address] 31285- 3556 Dec, [place] [address] 56786- 9370 Dec, Acute non-recurrent maxillary sinusitis J01.00 [place] [address] 64615- 7261 Dec, Lumbago with sciatica, right side M54.41 and Lupus erythematosus L93.0 [place] [address] 88646- 0605 Dec, Mood disorder F39 [place] [address] 79674- 5180 Dec, Mood disorder F39 [facility] [address] [address] 480[address] Dec, [facility] [id number] [place] [address] 41429- 2508 Dec, Acute right ankle pain M25.571 [facility] [address] [id number] [place] [address] 97144- 2997 Nov, Lumbar radiculopathy M54.16 [facility] [id number] [place] [address] 29240- 7399 Nov, [facility] [id number] [place] [address] 11495- 5109 Nov, Mood disorder F39 [facility] [id number] [place] [address] 27513- 5619 Nov, Lumbago with sciatica, right side M54.41 and Other chronic pain G89.29 [facility] [id number] [place] [address] 35575- 0839 Nov, Acute right ankle pain M25.571 [facility] [id number] [place] [address] 12195- 2270 Nov, [facility] [id number] [place] [address] 74716- 0171 Oct, [facility] [id number] [place] [address] 53561- 2735 Oct, Plantar wart of both feet B07.0 [facility] [id number] [place] [address] 45440- 5911 Oct, [facility] [id number] [place] [address] 58044- 3444 Oct, Acute right ankle pain M25.571 and Plantar wart of both feet B07.0 [facility] [id number] [place] [address] 34521- 2541 September, Other chronic pain G89.29 [facility] [id number] [place] [address] 93407- 0362 September, Other chronic pain G89.29 [facility] [id number] [place] [address] 09011- 9889 September, Other chronic pain G89.29 [facility] [address] 23630- 4174 Aug, Mood disorder F39 [place] [address] 93830- 0393 Aug, Other chronic pain G89.29 ; Controlled type 2 diabetes mellitus without complication, without long-term current use of insulin E11.9 ; Low back pain M54.5 and Tinea corporis B35.4 [place] [address] 44940- 1322 Aug, Mood disorder F39 and Anxiety F41.9 [place] [id number] [place] [address] 14276- 3708 Aug, Mood disorder F39 and Anxiety F41.9 [place] [id number] [place] [address] 45030- 7510 Jul, [facility] [id number] [place] [address] 69046 -6987 Jul, Scabies B86 and BMI 45.0-49.9, adult Z68.42 [place] [id number] [place] [address] 17407- 1394 Jul, [place] [address] 88319- 6181 Jul, Mood disorder F39 and Anxiety F41.9 [place] [id number] [place] [address] 18938- 4862 Jul, [facility] [id number] [place] [address] 27 Jun, 2017 Bronchitis J40 ; Dark urine R82.99 and BMI 45.0-49.9, adult Z68.42 [place] [address]- 2399 14 Jun, 2017 Acute pain of right shoulder M25.511 and Acute pain of right knee M25.561 [place]97651- 0382 May, BMI 40.0-44.9, adult Z68.41 ; Controlled type 2 diabetes mellitus without complication, without long-term current use of insulin E11.9 ; Muscle cramping R25.2 ; Hot flashes R23.2 ; Mood disorder F39 ; Anxiety F41.9 and Morbid (severe) obesity due to excess calories E66.[address] 04296- 5693 May, BMI 40.0-44.9, adult Z68.41 ; Controlled type 2 diabetes mellitus without complication, without long-term current use of insulin E11.9 ; Muscle cramping R25.2 and Hot flashes R23.2 [place] [id number] [place] [address] 65810- 8625 May, Tachycardia with heart rate 121-140 beats per minute R00.0 ; Morbid (severe) obesity due to excess calories E66.01 ; Diabetes type 2, controlled E11.9 and Enlarged thyroid gland E04.[address] 00336- 0081 May, Encounter for well woman exam with [...] R30.0 and Screening breast examination Z12.31 [facility] [id number] [place] [address] 45315- 8306 Apr, Mood disorder F39 ; Other chronic pain G89.29 and Anxiety F41.9 [facility] [id number] [place] [address] 40783- 2548 Apr, Lumbago with sciatica, left side M54.42 and Other chronic pain G89.29 [facility] [id number] [place] [address] 83203- 8384 Apr, Lupus erythematosus L93.0 [facility] [address] 798817- 5614 Mar, Plantar wart of both feet B07.0 [facility] [id number] [place] [address] 75264- 4032 Mar, Lupus erythematosus L93.0 and Sinus drainage J34.89 [facility] [id number] [place] [address] 70132- 1953 Mar, Mood disorder F39 ; Other chronic pain G89.29 and Anxiety F41.9 [facility] [id number] [place] [address] 12021- 1441 Mar, Mood disorder F39 ; Arthritis M19.90 and Plantar warts B07.0 [facility] [id number] [place] [address] 56324- 6282 Feb, Lupus erythematosus L93.0 [facility] [id number] [place] [address] 93128- 2543 Feb, Other chronic pain G89.29 [facility] [id number] [place] [address] 49084- 0144 Feb, Mood disorder F39 and Anxiety F41.9 [facility] [id number] [place] [address] 05097- 3947 Jan, [facility] [id number] [place] [address] 91175- 9056 Jan, Mood disorder F39 [facility] [id number] [place] [address] 71510- 5351 Dec, Nail, ingrown L60.0 [facility] [id number] [place] [address] 77612- 3563 Dec, Nail, ingrown L60.0 [facility] [id number] [place] [address] 27249- 8527 Nov, Mood disorder F39 and Anxiety F41.9 [facility] [id number] [place] [address] 38497- 1151 Nov, Sinus drainage J34.89 ; Hot flashes R23.2 ; Anxiety F41.9 and Diabetes type 2, controlled E11.9 [facility] [id number] [place] [address] 86750- 1572 Nov, Nail, ingrown L60.0 [facility] [id number] [place] [address] 00995- 0359 Oct, Anxiety F41.9 and Mood disorder F39 [facility] [id number] [place] [address] 19071- 4051 Oct, Nail, ingrown L60.0 and Anxiety F41.9 [facility] [id number] [place] [address] 50265- 0552 Oct, Lupus erythematosus L93.0 [facility] [id number] [place] [address] 59214- 0721 September, [facility] [address] 22491- 0943 September, [facility] [id number] [place] [address] 47818- 2006 September, Lupus erythematosus L93.0 [facility] [id number] [place] [address] 60367- 0393 Aug, [facility] [id number] [place] [address] 31922- 2068 Aug, Mood disorder F39 and Anxiety F41.9 [facility] [id number] [place] [address] 29617- 1076 Aug, Lupus erythematosus L93.0 ; Diabetes type 2, controlled E11.9 and Localized edema R60.0 [facility] [id number] [place] [address] 82142- 2642 Aug, [place] [id number] [place] [address] 49037- 6056 Jul, Anxiety F41.9 and Mood disorder F39 [place] [id number] [place] [address] 73983- 5002 Jul, Diabetes type 2, controlled E11.9 [facility] [id number] [place] [address] 49991- 0162 Jun, Anxiety F41.9 [place] [id number] [place] [address] 52125- 7367 May, [place] [id number] [place] [address] 05790- 0691 May, [place] [id number] [place] [address] 51109- 1298 May, Nausea R11.0 ; Other chronic pain G89.29 and Pain in right knee M25.561 [place] [id number] [place] [address] 01127- 8395 May, [place] [id number] [place] [address] 58120- 7049 Apr, Tear of medial meniscus of right knee, current, unspecified tear type, subsequent encounter S83.241D and Tear of lateral meniscus of right knee, current, unspecified tear type, subsequent encounter S83.281D [place] [id number] [place] [address] 50295- 4351 Apr, Anxiety F41.9 and Mood disorder F39 [facility] [address] 94877- 3117 Apr, Anxiety F41.9 [facility] [id number] [place] [address] 05670- 3109 Apr, [facility] [address] 93095- 6829 Mar, [facility] [address] 48536- 4143 Mar, Lupus erythematosus L93.0 and Diabetes type 2, controlled E11.9 [facility] [address] 60015- 5205 Mar, Mood disorder F39 [facility] [address] 30144- 7645 Mar, Tear of lateral meniscus of right knee, current, unspecified tear type, initial encounter S83.281A and Osteoarthritis of right knee, unspecified osteoarthritis type M17.9 [facility] [address] 19655- 4572 Mar, [facility] [id number] [place] [address] 50893- 5042 Feb, Mood disorder F39 [facility] [address] 59945- 0640 Feb, Rash R21 [facility] [id number] [place] [address] 75843- 6020 Feb, [facility] [address] 86350- 1203 Jan, Other chronic pain G89.29 and Muscle spasm M62.838 [facility] [id number] [place] [address] 77318- 7825 Jan, Mood disorder F39 [place] [address] [address]- 9080 Jan, Pain in right knee M25.561 ; Other chronic pain G89.29 and Muscle spasm M62.838 [place] [address] [address]- 2692 Dec, [place] [id number] [place] [address] 71017- 8283 Dec, [place] [id number] [place] [address] 64332- 4650 Nov, [place] [id number] [place] [address] 80168- 6724 Nov, Mood disorder F39 [place] [id number] [place] [address] 61925- 1340 Nov, Diabetes type 2, controlled E11.9 ; Bronchitis J40 ; Edema, unspecified type R60.9 ; Weight gain R63.5 and Right knee pain, unspecified chronicity M25.561 [place] [id number] [place] [address] 07003- 2697 Oct, Mood disorder F39 [place] [id number] [place] [address] 77930- 5849 Oct, Lupus erythematosus L93.0 and Bilateral edema of lower extremity R60.0 [place] [id number] [place] [address] 92702- 4435 Oct, Mood disorder F39 and Anxiety F41.9 [place] [address] [place] [address] 02254- 5337 September, Mood disorder F39 ; Anxiety F41.9 and Anger reaction R45.4 [place] [id number] [place] [address] 92454- 2312 September, Diabetes type 2, controlled E11.9 ; Edema, unspecified type R60.9 and Fatigue, unspecified type R53.83 [place] [id number] [place] [address] 31436- 2238 Aug, Mood disorder F39 and Generalized anxiety disorder F41.1 [facility] [id number] [place] [address] 27571- 0275 Aug, Diabetes type 2, controlled E11.9 ; Sinusitis J32.9 and Mood disorder F39 [facility] [id number] [place] [address] 68261- 0700 Aug, Lupus erythematosus L93.0 [facility] [id number] [place] [address] 50404- 6701 Aug, [facility] [id number] [place] [address] 27958- 7765 Aug, [facility] [id number] [place] [address] 35064- 4227 Jul, Diabetes type 2, controlled E11.9 [facility] [id number] [place] [address] 62662- 7588 Jul, Mood disorder F39 and Depression F32.9 [facility] [id number] [place] [address] 40805- 3816 Jul, Lupus erythematosus L93.0 and Diabetes type 2, controlled E11.9 [facility] [id number] [place] [address] 55124- 6610 Jul, Mood disorder F39 and Anxiety F41.9 [facility] [id number] [place] [address] 67989- 6854 Jul, [facility] [id number] [place] [address] 34787- 5688 Jul, [facility] [id number] [place] [address] 74022- 5442 Jun, Mood disorder F39 and Anxiety F41.9 [facility] [id number] [place] [address] 98483- 1726 Jun, Mood disorder F39 [facility] [address] [address]- 9770 Jun, [facility] [id number] [place] [address] 43544- 2032 Jun, [facility] [id number] [place] [address] 97021- 5845 Jun, Mood disorder F39 [facility] [id number] [place] [address] 91685- 6552 Jun, [facility] [id number] [place] [address] 56609- 5874 May, [facility] [id number] [place] [address] 94482- 0891 May, [facility] [id number] [place] [address] 59583- 0720 May, [facility] [id number] [place] [address] 22754- 8861 May, [facility] [id number] [place] [address] 22149- 9136 May, Anxiety F41.9 ; Dermatomyositis M33.90 and Diabetes type 2, controlled E11.9 [facility] [address] [address] May, Sinusitis J32.9 and Cough R05 [facility] [address] [address]- 1999 May, Mood disorder F39 [facility] [id number] [place] [address] 35558- 9169 May, Adjustment disorder with mixed anxiety and depressed mood F43.23 [facility] [address] [address]- 7798 Apr, [facility] [id number] [place] [address] 95264- 6313 Apr, [facility] [id number] [place] [address] 19958- 7218 Apr, Generalized anxiety disorder F41.1 and Mood disorder F39 [facility] [id number] [place] [address] 48297- 3490 Mar, [facility] [id number] [place] [address] 12515- 3193 Mar, [facility] [id number] [place] [address] 62074- 8338 Mar, [facility] [id number] [place] [address] 01897- 9200 Mar, Mood disorder F39 [facility] [id number] [place] [address] 86034- 4670 Feb, [facility] [id number] [place] [address] 06819- 8867 Feb, Diabetes E11.9 and Bronchitis J40 [facility] [id number] [place] [address] 25616- 1464 Feb, [facility] [id number] [place] [address] 04945- 5149 Feb, [facility] [id number] [place] [address] 87387- 7978 Feb, Major depression, recurrent, full remission F33.42 and KELLY ( generalized anxiety disorder) F41.1 [facility] [id number] [place] [address] 51564- 4950 Feb, [facility] [id number] [place] [address] 40698- 6269 Feb, Single major depressive episode, in partial or unspecified remission F32.5 [facility] [id number] [address] Jan, Fatigue 780.79 [facility] [id number] [place] [address] 31767- 7499 Jan, [place] [id number] [place] [address] 05615- 6245 Jan, Diabetes with other specified manifestations, type II or unspecified type, not stated as uncontrolled 250.80 [place] [id number] [place] [address] [id number] Jan, [place] [address] 72457- [address]459 Dec, Hot flashes 627.2 ; Memory loss 780.93 and Joint pain 719.[address] [address]- [address] Dec, Major depression, recurrent 296.30 ; Generalized anxiety disorder 300.02 ; Adjustment disorder with depressed mood 309.0 and No condition on [place] V71.09 [place] [id number] [place] [address] 16149- 3453 Dec, [place] [id number] [place] [address] 85192- 1814 Nov, Cognitive and neurobehavioral dysfunction 294.9 ; Major depressive disorder, recurrent episode, moderate degree 296.32 and Anxiety state , unspecified 300.00 [place] [id number] [place] [address] 63839- 6207 Nov, [place] [id number] [place] [address] 27547- 9207 Nov, Bronchitis 490 and Diabetes with other specified manifestations, type II or unspecified type, not stated as uncontrolled 250.80 [place] [id number] [place] [address] 32185- 1423 Nov, Major depressive disorder, recurrent episode, moderate 296.32 and Anxiety disorder, unspecified 300.[id number] [place] [address] 64948- 6762 Nov, Anxiety, generalized 300.02 ; Intermittent explosive disorder 312.34 ; No condition on [place] II V71.09 and No condition on axis III V71.09 [id number] [place] [address] 77780- 9173 Oct, Diabetes with other specified manifestations, type II or unspecified type, not stated as uncontrolled 250.80 ; Urinary tract infection, site not specified 599.0 and Bronchitis [address] [place] [id number] [place] [address] 05025- 3411 Oct, Intermittent explosive disorder 312.34 ; Bipolar 1 disorder , depressed, moderate 296.52 ; Major depression, chronic 296.20 ; No condition on [place] II V71.09 and No condition on axis III V71.09 [place] [id number] [place] [address] 63676- 3521 Oct, Major depressive disorder, recurrent episode, moderate 296.32 ; Anxiety state 300.00 ; Cognitive decline 294.9 and No condition on [place] II V71.09 [place] [id number] [place] [address] 78943- 7243 Oct, [place] [id number] [place] [address]25- 9587 Oct, Major depressive disorder, recurrent episode, moderate 296.32 ; Anxiety disorder, unspecified 300.00 and Persistent disorder of initiating or maintaining sleep 307.42 [address] [id number] [place] [address] 09472- 5153 September, Diabetes with other specified manifestations, type II or unspecified type, not stated as uncontrolled 250.80 ; Memory loss 780.93 and Cognitive complaints 799.59 [id number] [place] [address] 88028- 6701 September, No condition on [place] V71.09 ; Major depression, recurrent 296.30 and Persistent mood [affective] disorder, unspecified 296.90 [place] [id number] [place] [address] 37141- 5622 Aug, [address] [place] [address]- 7451 14 Aug, 2014 [facility] [place] [facility] [address] [id number] [place] [address]- 3823 13 Aug, 2014 [facility] [place] [facility] [address] [id number] [place] [address]- 6685 Jul, 2014 [facility] [place] [facility] [address] [facility] [id number] [place] [address]- 1675 Jul, 2014 [facility] [place] [facility] [address] [id number] [place] [address]- 1723 Jul, [facility] [place] [facility] [address] [id number] [place] [address]- 1277 Jul, [facility] [place] [facility] [address] [facility] [id number] [place] [address]- 8285 Jul, [facility] [place] [facility] [address] [id number] [place] [address]- 1503 18 Jun, 2014 [facility] [place] [facility] [address] [facility] [id number] [place] [address]- 3660 Jun, 2014 [facility] [place] [facility] [address] [id number] [place] [place] [address]- 3294 Jun, 2014 [facility] [place] [facility] [address] [facility] [id number] [place] [address]- 6569 Jun, 2014 [facility] [place] [facility] [address] [facility] [id number] [place] [address]- 9138 Jun, 2014 [facility] [place] [facility] [address] [facility] [id number] [address]- 1605 Jun, 2014 [facility] [place] [facility] [address] [facility] [id number] [place] [address]- 9394 Jun, 2014 [facility] [place] [facility] [address] [facility] [id number] [address]- 7306 Jun, 2014 [facility] [place] [facility] [address] [id number] [address]- 0110 Jun, 2014 [facility] [place] [facility] [address] [id number] [place] [address]- 9985 Jun, 2014 [facility] [place] [facility] [address] [id number] [place] [address]- 0197 Jun, 2014 [facility] [place] [facility] [address] [id number] [place] [address]- 6990 Jun, 2014 [facility] [place] [facility] [address] [id number] [place] [address]- 1668 Jun, 2014 [facility] [place] [facility] [address] [id number] [place] [address]- 5459 May, [facility] [place] [facility] [address] [id number] [place] [address]- 3657 May, [facility] [place] [facility] [address] [id number] [place] [address]- 8934 Apr, [facility] [place] [facility] [address] [id number] [place] [address]- 8689 Apr, [facility] [place] [facility] [address] [id number] [place] [address]- 3129 Apr, [facility] [place] [facility] [address] [facility] [id number] [place] [address]- 9430 Apr, [facility] [place] [facility] [address] [id number] [place] [address]- 0153 Apr, [facility] [place] [facility] [address] [id number] [place] [address]- 1031 Apr, [facility] [place] [facility] [address] [id number] [place] [address]- 3943 Apr, [facility] [place] [facility] [address] [id number] [place] [address]- 6646 Apr, [facility] [place] [facility] [address] [facility] [id number] [place] [address]- 4465 15 Apr, 2014 [facility] [place] [facility] [address] [id number] [place] [address]- 3783 15 Apr, 2014 [facility] [place] [facility] [address] [id number] [place] [address]- 0300 Apr, [facility] [place] [facility] [address] [id number] [place] [address]- 5116 Apr, [facility] [place] [facility] [address] [id number] [place] [address]- 4104 Apr, [facility] [place] [facility] [address] [id number] [place] [address]- 2530 Apr, [facility] [place] [facility] [address] [id number] [place] [address]- 8313 Apr, [facility] [place] [facility] [address] [id number] [place] [address]- 1450 Apr, [facility] [place] [facility] [address] [id number] [place] [address]- 3246 Apr, [facility] [place] [facility] [address] [id number] [place] [address]- 2616 Apr, [facility] [place] [facility] [address] [id number] [place] [address]- 0188 Apr, [facility] [place] [facility] [address] [id number] [place] [address]- 9621 Apr, [facility] [place] [facility] [address] [id number] [place] [address]- 1911 Mar, [facility] [place] [facility] [address] [id number] [place] [address]- 4194 Mar, [facility] [place] [facility] [address] [id number] [place] [address]- 0838 Mar, [facility] [place] [facility] [address] [id number] [place] [address]- 4288 Mar, [facility] [place] [facility] [address] [id number] [place] [address]- 3412 Mar, [facility] [place] [facility] [address] [id number] [place] [address]- 1724 Mar, [facility] [place] [facility] [address] [id number] [place] [address]- 5894 Mar, [facility] [place] [facility] [address] [id number] [place] [address]- 9774 Mar, [facility] [place] [facility] [address] [id number] [place] [address]- 2902 Mar, [facility] [place] [facility] [address] [id number] [place] [address]- 3174 Mar, [facility] [place] [facility] [address] [id number] [place] [address]- 5343 Mar, [facility] [place] [facility] [address] [id number] [place] [address]- 3069 Mar, [facility] [place] [facility] [address] [id number] [place] [address]- 5498 Mar, [facility] [place] [facility] [address] [id number] [place] [address]- 5540 Feb, [facility] [place] [facility] [address] [id number] [place] [address]- 7051 Feb, [facility] [place] [facility] [address] [id number] [place] [address]- 8627 Feb, [facility] [place] [facility] [address] [id number] [address]- 7588 Feb, [facility] [place] [facility] [address] [id number] [place] [address]- 2396 Feb, [facility] [place] [facility] [address] [id number] [place] [address]- 4268 Feb, [facility] [place] [facility] [address] [id number] [place] [address]- 7974 Feb, [facility] [place] [facility] [address] [id number] [place] [address]- 7943 Feb, [facility] [place] [facility] [address] [id number] [place] [address]- 5797 Feb, [facility] [place] [facility] [address] [id number] [place] [address]- 8177 Feb, [facility] [place] [facility] [address] [id number] [place] [address]- 0523 Feb, [facility] [place] [facility] [address] [id number] [place] [address]- 3933 10 Feb, 2014 [facility] [place] [facility] [address] [id number] [place] [address]- 2810 10 Feb, 2014 [facility] [place] [facility] [address] [id number] [place] [address]- 9144 Feb, [facility] [place] [facility] [address] [id number] [place] [address]- 7288 07 Feb, 2014 [facility] [place] [facility] [address] [id number] [place] [address]- 0563 10 Jan, 2013 [facility] [place] [facility] [address] [id number] [place] [address]- 0560 08 Jan, 2013 [facility] [place] [facility] [address] [id number] [place] [address]- 2633 08 Jan, 2013 [facility] [place] [facility] [address] [id number] [place] [address]- 0401 08 Jan, 2013 [facility] [place] [facility] [address] [id number] [place] [address]- 3199 08 Jan, 2013 [facility] [place] [facility] [address] [id number] [place] [address]- 9370 Dec, [facility] [place] [facility] [address] [id number] [place] [address]- 7990 Dec, [facility] [place] [facility] [address] [id number] [place] [address]- 5266 Dec, [facility] [place] [facility] [address] [id number] [place] [address]- 6861 Dec, [facility] [place] [facility] [address] [id number] [place] [address] Nov, [facility] [place] [facility] [address] [id number] [place] [address]- 3778 Nov, [facility] [place] [facility] [address] [id number] [place] [address]- 1384 Nov, [facility] [place] [facility] [address] [id number] [place] [address]- 6297 Nov, [facility] [place] [facility] [address] [id number] [place] [address]- 7409 Nov, [facility] [place] [facility] [address] [id number] [place] [address]- 4793 Nov, [facility] [place] [facility] [address] [id number] [place] [address]- 0515 Nov, [facility] [place] [facility] [address] [id number] [place] [address]- 4662 Nov, [facility] [place] [facility] [address] [id number] [place] [address]- 0380 Nov, [facility] [place] [facility] [address] [id number] [place] [address]- 9216 Nov, [facility] [place] [facility] [address] [id number] [place] [address]- 6306 Oct, [facility] [place] [facility] [address] [id number] [place] [address]- 6384 Oct, [facility] [place] [facility] [address] [id number] [place] [address]- 8332 September, [facility] [place] [facility] [address] [id number] [place] [address]- 7385 September, [facility] [place] [facility] [address] [id number] [place] [address]- 3023 September, [facility] [place] [facility] [address] [id number] [place] [address]- 2587 September, [facility] [place] [facility] [address] [id number] [place] [address]- 1852 16 Aug, 2013 [facility] [place] [facility] [address] [id number] [place] [address]- 5428 Aug, [facility] [place] [facility] [address] [id number] [place] [address]- 6465 Aug, [facility] [place] [facility] [address] [id number] [place] [address]- 7298 Jul, [facility] [place] [facility] [address] [id number] [place] [address]- 6973 24 Jul, 2013 [facility] [place] [facility] [address] [id number] [place] [address]- 5398 Jul, [facility] [place] [facility] [address] [id number] [place] [address]- 5754 Jul, [facility] [place] [facility] [address] [id number] [place] [address]- 4085 May, [facility] [place] [facility] [address] [id number] [place] [address]- 3396 May, [facility] [place] [facility] [address] [id number], [place] [address]- 3441 May, [facility] [place] [facility] [address] [id number] [address]- 4866 15 Mar, 2013 [facility] [place] [facility] [address] [id number] [place] [address]- 8608 15 Mar, 2013 [facility] [place] [facility] [address] [id number] [address]- 8991 13 Mar, 2013 [facility] [place] [facility] [address] [id number] [place] [address]- 6835 Mar, [facility] [place] [facility] [address] [id number] [place] [address]- 7822 Feb, [facility] [address] [id number] [place] [address]- 3658 Feb, [facility] [place] [facility] [address] [id number] [place] [address]- 3493 Feb, [facility] [place] [facility] [address] [id number] [place] [address]- 7258 Jan, [facility] [place] [facility] [address] [id number] [place] [address]- 3863 Jan, [facility] [place] [facility] [address] [id number] [place] [address]- 6864 Jan, [facility] [place] [facility] [address] [id number] [place] [address]- 1675 Dec, [facility] [place] [facility] [address] [id number] [place] [address]- 8852 Dec, [facility] [place] [facility] [address] [id number] [place] [address]- 2736 Dec, [facility] [place] [facility] [address] [id number] [place] [address]- 2394 Dec, [facility] [place] [facility] [address] [id number] [place] [address]- 7207 Nov, [facility] [place] [facility] [address] [id number] [place] [address]- 2802 Oct, [facility] [place] [facility] [address] [id number] [place] [address] 2547 Oct, [facility] [place] [facility] [address] [id number] [place] [address]- 1447 September, [facility] [place] [facility] [address] [id number] [place] [address]- 3436 September, [facility] [place] [facility] [address] [id number] [place] [address]- 3932 September, [facility] [place] [facility] [address] [id number] [place] [address]- 9590 30 Aug, 2012 [facility] [address] [id number] [place] [address]- 8642 18 Aug, 2012 [facility] [address] [id number] [place] [address]- 0220 Aug, [facility] [address] [id number] [place] [address]- 7311 Aug, [facility] [address] [id number] [place] [address]- 7908 Jul, [facility] [address] [id number] [place] [address]- 1146 Jul, [facility] [address] [id number] [place] [address]- 7994 Jul, [facility] [address] [id number] [place] [address]- 1871 15 Jul, 2012 [facility] [address] [id number] [place] [address]- 8231 14 Jul, 2012 [facility] [address] [id number] [place] [address]- 3037 Jul, [facility] [address] [id number] [place] [address]- 1170 Jul, [facility] [address] [id number] [place] [address]- 4376 Jun, [facility] [place] [facility] [address] [id number] [place] [address]- 1428 Jun, [facility] [place] [facility] [address] [id number] [place] [address]- 4496 Jun, [facility] [place] [facility] [address] [id number] [place] [address]- 6716 Jun, [facility] [address] [id number] [place] [address]- 8430 31 May, 2012 [facility] [address] [id number] [place] [address]- 2226 30 May, 2012 [facility] [place] [facility] [address] [id number] [place] [address]- 3653 30 May, 2012 [facility] [place] [facility] [address] [id number] [place] [address]- 0177 May, [facility] [place] [facility] [address] [id number] [place] [address]- 8303 May, [facility] [place] [facility] [address] [id number] [place] [address]- 9414 Apr, [facility] [place] [facility] [address] [id number] [place] [address]- 9251 Apr, [facility] [address] [id number] [place] [address]- 7682 Mar, [facility] [place] [facility] [address] [id number] [place] [address]- 6715 Mar, [facility] [place] [facility] [address] [id number] [place] [address]- 1922 Mar, [facility] [place] [facility] [address] [facility] [id number] [place] [address]- 1304 Mar, [facility] [place] [facility] [address] [id number] [place] [address]- 1392 Mar, [facility] [place] [facility] [address] [id number] [place] [address]- 5098 Mar, [facility] [place] [facility] [address] [id number] [place] [address]- 0936 Mar, [facility] [place] [facility] [address] [id number] [place] [address]- 8707 Mar, [facility] [place] [facility] [address] [id number] [place] [address]- 7791 Mar, [facility] [place] [facility] [address] [id number] [place] [address]- 1077 Mar, [facility] [place] [facility] [address] [id number] [place] [address]- 3012 Feb, [facility] [place] [facility] [address] [id number] [place] [address]- 2786 Feb, [facility] [place] [facility] [address] [id number] [place] [address]- 1518 Feb, [facility] [place] [facility] [address] [id number] [place] [address]- 1182 Feb, [facility] [place] [facility] [address] [id number] [place] [address]- 4604 Feb, [facility] [place] [facility] [address] [id number] [place] [address]- 7839 Feb, [facility] [place] [facility] [address] [id number] [place] [address]- 5633 Feb, [facility] [place] [facility] [address] [id number] [place] [address]- 8724 Jan, [facility] [place] [facility] [address] [id number] [place] [address]- 5546 Jan, [facility] [place] [facility] [address] [id number] [place] [address]- 5143 Dec, [facility] [place] [facility] [address] [id number] [place] [address]- 3063 Dec, [facility] [place] [facility] [address] [id number] [place] [address]- 7980 Dec, [facility] [place] [facility] [address] [id number] [place] [address]- 5996 Dec, [facility] [place] [facility] [address] [id number] [place] [address]- 5566 Dec, [facility] [place] [facility] [address] [id number] [place] [address]- 4426 Dec, [facility] [place] [facility] [address] [id number] [place] [address]- 7926 Nov, [facility] [place] [facility] [address] [id number] [place] [address]- 2586 Nov, [facility] [place] [facility] [address] [id number] [place] [address]- 9665 Nov, [facility] [place] [facility] [address] [id number] [place] [address]- 5722 Nov, [facility] [place] [facility] [address] [id number] [place] [address]- 5306 September, [facility] [place] [facility] [address] [id number] [place] [address]- 1785 September, [facility] [place] [facility] [address] [id number] [place] [address]- 2184 September, [facility] [place] [facility] [address] [id number] [place] [address]- 0569 Jul, [facility] [place] [facility] [address] [id number] [place] [address]- 3707 Jun, [facility] [place] [facility] [address] [id number] [place] [address]- 8293 Jun, [facility] [place] [facility] [address] [id number] [place] [address] Jun, [facility] [place] [facility] [address] [id number] [place] [address] Apr, [facility] [place] [facility] [address] [id number] [place] [address] Mar, [facility] [place] [facility] [address] [id number] [place] [address] Mar, [facility] [place] [facility] [address] [id number] [place] [address] Feb, [facility] [place] [facility] [address] [facility] [id number] [place] [id number] 31 Feb, 2011 [facility] [address] [facility] [id number] [address] 11 Feb, 2011 [facility] [address] [facility] [id number] [address] 10 Jul, 2009 [facility] [address] [facility] [id number] [address] 20 Feb, 2008 IMMUNIZATIONS No Known Immunizations SOCIAL HISTORY Never Assessed REASON FOR VISIT Refill request PLAN OF CARE VITAL SIGNS MEDICATIONS Medication Instructions Dosage Frequency Start Date End Date Duration Status Methotrexate 2.5 MG Orally 1 time per week 6 tablet 90 days Active Neurontin 300 MG Orally Three times a day 1 capsule 8h Nov, 90 days Active Spironolactone 25 MG TAKE ONE TABLET BY MOUTH ONCE DAILY 90 days Active Folic Acid 1 MG TAKE ONE TABLET BY MOUTH ONCE DAILY (DO NOT TAKE ON DAYS YOU TAKE METHOTREXATE) 90 days Active Actos 30 MG TAKE ONE TABLET BY MOUTH ONCE DAILY 90 days Active Furosemide 20 mg TAKE 1 TABLET BY MOUTH ONCE DAILY 90 days Active Omeprazole 20 mg 1 capsule 90 days Active RESULTS No Results PROCEDURES [...]
--- OUTSIDE RECORDS SUMMARY | 2018-05-09 22:43 | XMS REPORT ---
Author Author MACY TAMAYO [facility] Address [address] [place] [address] Care Team Providers Care Quality Assurance/R&D Lab Technician Name Role Phone MACY TAMAYO Unavailable PROBLEMS Type Condition ICD9-CM Code VPT02-WG Code Onset Dates Condition Status SNOMED Code Problem Controlled type 2 diabetes mellitus without complication, without long -term current use of insulin E11.9 Active 132317899 Problem Body mass index (BMI) of 45.0-49.9 in adult Z68.42 Active 109294672 Problem Tachycardia with heart rate 121-140 beats per minute R00.0 Active 3007380 Problem Facial droop R29.810 Active 49185859 Problem Menopause Z78.0 Active 350188068 Problem Gait disturbance R26.9 Active 28817642 Problem Dermatomyositis M33.90 Active 926392131 Problem Enlarged thyroid gland E04.9 Active 1388794 Problem Lumbago with sciatica, right side M54.41 Active 060022273 Problem Morbid (severe) obesity due to excess calories E66.01 Active 899177182 Problem Diabetes type 2, controlled E11.9 Active 28503296 Problem Osteoarthritis of right knee, unspecified osteoarthritis type M17.9 Active 503922378 Problem Allergic rhinitis due to pollen J30.1 Active 93725826 Problem Mood disorder F39 Active 82995929 Problem Arthritis M19.90 Active 3572980 Problem Plantar warts B07.0 Active 39959619 Problem Anxiety F41.9 Active 93463939 Problem Plantar wart of both feet B07.0 Active [id number] Problem Other chronic pain G89.29 Active 20565104 Problem Lumbago with sciatica, left side M54.42 Active 719945170 ALLERGIES Substance Reaction Event Type Date Status Fluarix Quadrivalent vomiting Drug Allergy Dec, Active Zoloft makes very angry Drug Allergy Dec, Active Fluarix vomiting Drug Allergy Dec, Active Aspirin rash Drug Allergy Dec, Active Latex, Natural Rubber rash Non Drug Allergy Dec, Active ENCOUNTERS Encounter Location Date Diagnosis [facility] [id number] [place] [address] 44597- 0891 Mar, [facility] [address] 24677- 5931 18 Feb, 2018 [facility] [address] 13942- 9328 Feb, [facility] [address] 51196- 7602 28 Jan, 2018 [facility] [address] 41068- 7136 27 Jan, 2018 [facility] [address] 11028- 7654 Jan, [facility] [address] 37645- 0691 Jan, 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 [facility] [id number] [place] [address] 65259- 7394 Jan, [facility] [address] 78776- 7230 Jan, [facility] [id number] [place] [address] 22849- 8874 Jan, [facility] [address] 14203- 0366 19 Jan, 2018 Allergic reaction to drug, initial encounter T78.40XA [facility] [id number] [place] [address] 36025- 8806 17 Jan, 2018 BMI 45.0-49.9, adult Z68.42 and Facial droop R29.810 [facility] [id number] [place] [address] 59108- 9771 14 Jan, 2018 Mood disorder F39 [facility] [address] 63198- 7695 Jan, Dermatomyositis M33.90 and BMI 40.0-44.9, adult Z68.41 [address] [place] [address] 79461- 1578 Jan, [facility] [id number] [place] [address] 82266- 4676 05 Jan, 2018 [place] [address] 92620- 0792 04 Jan, 2018 Irritation of left eye H57.8 and BMI 40.0-44.9, adult Z68.41 [place] [address] 92704- 8312 Dec, Diabetes type 2, controlled E11.9 [facility] [address] 64125- 4974 Dec, Acute right ankle pain M25.571 [place] [address] 38224- 8552 Dec, Other chronic pain G89.29 ; Diabetes type 2, controlled E11.9 ; Gait disturbance R26.9 ; Weakness R53.1 and Muscle spasm M62.838 [facility] [id number] [place] [address] 43076- 0094 Dec, Acute non-recurrent maxillary sinusitis J01.00 [facility] [id number] [place] [address] 72133- 7572 Dec, [facility] [id number] [place] [address] 89277- 5667 Dec, [place] [address] 47504- 0139 Dec, Acute non-recurrent maxillary sinusitis J01.00 [facility] [id number] [place] [address] 92327- 7481 Dec, Lumbago with sciatica, right side M54.41 and Lupus erythematosus L93.0 [facility] [address] [place] [address]- 9425 Dec, Mood disorder F39 [facility] [id number] [place] [address] 57531- 4713 Dec, Mood disorder F39 [facility] [id number] [place] [address] 97276- 5515 Dec, [facility] [id number] [place] [address] 79069- 4745 Dec, Acute right ankle pain M25.571 [facility] [id number] [place] [address] 40502- 3083 Nov, Lumbar radiculopathy M54.16 [facility] [id number] [place] [address] 74030- 0308 Nov, [facility] [id number] [place] [address] 60511- 8754 Nov, Mood disorder F39 [facility] [id number] [place] [address] 46186- 0411 Nov, Lumbago with sciatica, right side M54.41 and Other chronic pain G89.29 [facility] [address] [place] [address] 46922- 1287 Nov, Acute right ankle pain M25.571 [facility] [id number] [place] [address] 70550- 1705 Nov, [facility] [id number] [place] [address] 56766- 4236 Oct, [facility] [id number] [place] [address] 30866- 0367 Oct, Plantar wart of both feet B07.0 [facility] [address] [place] [address]- 9083 Oct, [facility] [id number] [place] [address] 99838- 3311 Oct, Acute right ankle pain M25.571 and Plantar wart of both feet B07.0 [facility] [address] 85984- 1252 September, Other chronic pain G89.29 [place] [address] 37035- 7557 September, Other chronic pain G89.29 [place] [address] 44243- 2975 September, Other chronic pain G89.29 [place] [address] 65814- 9258 Aug, Mood disorder F39 [facility] [address] 09244- 4066 Aug, Other chronic pain G89.29 ; Controlled type 2 diabetes mellitus without complication, without long-term current use of insulin E11.9 ; Low back pain M54.5 and Tinea corporis B35.4 [place] [address] 07000- 1691 Aug, Mood disorder F39 and Anxiety F41.9 [facility] [id number] [place] [address] 08146- 1094 Aug, Mood disorder F39 and Anxiety F41.9 [facility] [address] 74922- 3255 Jul, [facility] [address] 64313 -6091 Jul, Scabies B86 and BMI 45.0-49.9, adult Z68.42 [facility] [id number] [place] [address] 29282- 8268 Jul, [place] [address] 24528- 1278 Jul, Mood disorder F39 and Anxiety F41.9 [facility] [address] [place] [address] 46458- 1677 Jul, [facility] [address] [place] [address] 37615 -0984 27 Jun, 2017 Bronchitis J40 ; Dark urine R82.99 and BMI 45.0-49.9, adult Z68.42 [address] [id number] [place] [address] 56010- 7841 14 Jun, 2017 Acute pain of right shoulder M25.511 and Acute pain of right knee M25.561 [place] [address] 09704- 2091 May, BMI 40.0-44.9, adult Z68.41 ; Controlled type 2 diabetes mellitus without complication, without long-term current use of insulin E11.9 ; Muscle cramping R25.2 ; Hot flashes R23.2 ; Mood disorder F39 ; Anxiety F41.9 and Morbid (severe) obesity due to excess calories E66.01 [place] [address] [place] [address] 18316- 3547 May, BMI 40.0-44.9, adult Z68.41 ; Controlled type 2 diabetes mellitus without complication, without long-term current use of insulin E11.9 ; Muscle cramping R25.2 and Hot flashes R23.2 [id number] [place] [address] 89842- 5488 May, Tachycardia with heart rate 121-140 beats per minute R00.0 ; Morbid (severe) obesity due to excess calories E66.01 ; Diabetes type 2, controlled E11.9 and Enlarged thyroid gland E04.9 [id number] [place] [address] 09639- 4459 May, Encounter for well woman exam with [...] and Screening breast examination Z12.31 [facility] [id number] [place] [address] 56588- 1457 29 Apr, 2017 Mood disorder F39 ; Other chronic pain G89.29 and Anxiety F41.9 [facility] [id number] [place] [address] 28067- 9402 Apr, Lumbago with sciatica, left side M54.42 and Other chronic pain G89.29 [facility] [id number] [place] [address] 15541- 9686 Apr, Lupus erythematosus L93.0 [facility] [id number] [place] [address] 35389- 5814 Mar, Plantar wart of both feet B07.0 [facility] [id number] [place] [address] 07424- 9704 Mar, Lupus erythematosus L93.0 and Sinus drainage J34.89 [facility] [id number] [place] [address] 08811- 1787 Mar, Mood disorder F39 ; Other chronic pain G89.29 and Anxiety F41.9 [facility] [place] [id number] [place] [address] 72779- 0302 Mar, Mood disorder F39 ; Arthritis M19.90 and Plantar warts B07.0 [facility] [id number] [place] [address] 86543- 9720 Feb, Lupus erythematosus L93.0 [facility] [id number] [place] [address] 93385- 8175 Feb, Other chronic pain G89.29 [facility] [address] 69806- 4604 Feb, Mood disorder F39 and Anxiety F41.9 [facility] [id number] [place] [address] 24818- 6932 Jan, [facility] [id number] [place] [address] 86470- 9821 Jan, Mood disorder F39 [facility] [id number] [place] [address] 51763- 8242 Dec, Nail, ingrown L60.0 [facility] [id number] [place] [address] 51633- 4507 Dec, Nail, ingrown L60.0 [facility] [id number] [place] [address] 14299- 6270 Nov, Mood disorder F39 and Anxiety F41.9 [facility] [address] 04975- 9611 Nov, Sinus drainage J34.89 ; Hot flashes R23.2 ; Anxiety F41.9 and Diabetes type 2, controlled E11.9 [facility] [id number] [place] [address] 56717- 4690 Nov, Nail, ingrown L60.0 [facility] [id number] [place] [address] 71492- 0939 Oct, Anxiety F41.9 and Mood disorder F39 [facility] [id number] [place] [address] 40664- 1602 Oct, Nail, ingrown L60.0 and Anxiety F41.9 [facility] [id number] [place] [address] 61617- 4875 Oct, Lupus erythematosus L93.0 [facility] [id number] [place] [address] 79320- 0781 September, [facility] [id number] [place] [address] 89548- 1061 September, [facility] [id number] [place] [address] 70525- 3295 September, Lupus erythematosus L93.0 [facility] [id number] [place] [address] 30332- 4286 Aug, [facility] [id number] [place] [address] 99358- 1202 Aug, Mood disorder F39 and Anxiety F41.9 [facility] [id number] [place] [address] 92146- 2358 Aug, Lupus erythematosus L93.0 ; Diabetes type 2, controlled E11.9 and Localized edema R60.0 [facility] [id number] [place] [address] 98436- 3701 Aug, [facility] [id number] [place] [address] 14156- 5418 Jul, Anxiety F41.9 and Mood disorder F39 [facility] [id number] [place] [address] 77138- 7974 Jul, Diabetes type 2, controlled E11.9 [facility] [id number] [place] [address] 97376- 5410 Jun, Anxiety F41.9 [facility] [id number] [place] [address] 76241- 7716 May, [facility] [id number] [place] [address] 79300- 4012 May, [facility] [id number] [place] [address] 68550- 9653 May, Nausea R11.0 ; Other chronic pain G89.29 and Pain in right knee M25.561 [facility] [id number] [place] [address] 58689- 3298 May, [facility] [id number] [place] [address] 38965- 0927 Apr, Tear of medial meniscus of right knee, current, unspecified tear type, subsequent encounter S83.241D and Tear of lateral meniscus of right knee, current, unspecified tear type, subsequent encounter S83.281D [facility] [id number] [place] [address] 18211- 7075 Apr, Anxiety F41.9 and Mood disorder F39 [facility] [id number] [place] [address] 01333- 5315 Apr, Anxiety F41.9 [facility] [id number] [place] [address] 52452- 6031 Apr, [place] [address] 31423- 8214 Mar, [place] [id number] [place] [address] 74296- 9193 Mar, Lupus erythematosus L93.0 and Diabetes type 2, controlled E11.9 [facility] [id number] [place] [address] 70502- 6673 Mar, Mood disorder F39 [place] [id number] [place] [address] 08559- 0690 Mar, Tear of lateral meniscus of right knee, current, unspecified tear type, initial encounter S83.281A and Osteoarthritis of right knee, unspecified osteoarthritis type M17.9 [facility] [id number] [place] [address] 53308- 7694 Mar, [facility] [id number] [place] [address] 12429- 4059 Feb, Mood disorder F39 [facility] [id number] [place] [address] 04192- 0758 Feb, Rash R21 [facility] [id number] [place] [address] 28818- 0847 Feb, [facility] [id number] [place] [address] 09378- 1653 Jan, Other chronic pain G89.29 and Muscle spasm M62.838 [facility] [address] [place] [address] 82843- 4555 Jan, Mood disorder F39 [facility] [address] [place] [address] 19019- 0526 Jan, Pain in right knee M25.561 ; Other chronic pain G89.29 and Muscle spasm M62.838 [facility] [id number] [place] [address] 00038- 2319 Dec, [facility] [id number] [place] [address] 68029- 0896 Dec, [facility] [id number] [place] [address] 45658- 1432 Nov, [facility] [id number] [place] [address] 71351- 8569 Nov, Mood disorder F39 [facility] [id number] [place] [address] 80269- 8568 Nov, Diabetes type 2, controlled E11.9 ; Bronchitis J40 ; Edema, unspecified type R60.9 ; Weight gain R63.5 and Right knee pain, unspecified chronicity M25.561 [facility] [address], [place] [address]- 0011 Oct, Mood disorder F39 [facility] [id number] [place] [address] 30481- 1858 Oct, Lupus erythematosus L93.0 and Bilateral edema of lower extremity R60.0 [facility] [id number] [place] [address] 50217- 3363 Oct, Mood disorder F39 and Anxiety F41.9 [facility] [address] [place] [address] 33027- 2913 September, Mood disorder F39 ; Anxiety F41.9 and Anger reaction R45.4 [place] [address], [place] [address]- 5112 September, Diabetes type 2, controlled E11.9 ; Edema, unspecified type R60.9 and Fatigue, unspecified type R53.83 [facility] [id number] [place] [address] 04739- 1679 Aug, Mood disorder F39 and Generalized anxiety disorder F41.1 [facility] [id number] [place] [address] 00409- 8111 Aug, Diabetes type 2, controlled E11.9 ; Sinusitis J32.9 and Mood disorder F39 [facility] [id number] [place] [address] 48722- 9757 Aug, Lupus erythematosus L93.0 [facility] [id number] [place] [address] 97457- 5751 Aug, [facility] [id number] [place] [address] 25134- 5222 Aug, [facility] [id number] [place] [address] 59464- 2086 Jul, Diabetes type 2, controlled E11.9 [facility] [address] [place] [address] 73149- 4385 Jul, Mood disorder F39 and Depression F32.9 [facility] [address], [place] [address]- 5511 Jul, Lupus erythematosus L93.0 and Diabetes type 2, controlled E11.9 [facility] [address] [place] [address] 07946- 7309 Jul, Mood disorder F39 and Anxiety F41.9 [facility] [address] [place] [address] 89420- 8607 Jul, [facility] [address], [place] [address]- 6573 Jul, [facility] [address] [place] [address]- 8807 Jun, Mood disorder F39 and Anxiety F41.9 [facility] [id number] [place] [address] 85331- 4888 Jun, Mood disorder F39 [facility] [id number] [place] [address] 07100- 9572 Jun, [facility] [id number] [place] [address] 80719- 6955 Jun, [facility] [id number] [place] [address] 75964- 1789 Jun, Mood disorder F39 [facility] [id number] [place] [address] 44723- 7996 Jun, [facility] [id number] [place] [address] 66933- 9682 May, [facility] [id number] [place] [address] 96234- 2467 May, [facility] [id number] [place] [address] 58445- 2620 May, [facility] [id number] [place] [address] 49458- 2596 May, [facility] [address] [place] [address] 77519- 4698 May, Anxiety F41.9 ; Dermatomyositis M33.90 and Diabetes type 2, controlled E11.9 [facility] [address] [place] [address] 49678 -4082 May, Sinusitis J32.9 and Cough R05 [facility] [id number] [place] [address] 32802- 1323 May, Mood disorder F39 [facility] [id number] [place] [address] 15968- 1527 May, Adjustment disorder with mixed anxiety and depressed mood F43.23 [facility] [address], [place] [address]- 3852 Apr, [facility] [id number] [place] [address] 16883- 3206 Apr, [facility] [id number] [place] [address] 83491- 9547 Apr, Generalized anxiety disorder F41.1 and Mood disorder F39 [facility] [id number] [place] [address] 87088- [phone] Mar, [facility] [id number] [place] [address] [phone]- [phone] Mar, [facility] [id number] [place] [address] [phone]- [phone] Mar, [facility] [id number] [place] [address] [phone]- [phone] Mar, Mood disorder F39 [facility] [id number] [place] [address] 76387- 4697 Feb, [facility] [id number] [place] [address] [phone]- 7937 Feb, Diabetes E11.9 and Bronchitis J40 [facility] [id number] [place] [address] 36599- 7588 Feb, [facility] [id number] [place] [address] 04197- 1291 Feb, [facility] [id number] [place] [address] [phone]- 3708 Feb, Major depression, recurrent, full remission F33.42 and KELLY ( generalized anxiety disorder) F41.1 [facility] [id number] [place] [address] [phone]- 6935 Feb, [facility] [id number] [place] [address] [id number]- 4754 Feb, Single major depressive episode, in partial or unspecified remission F32.5 [address] [place] [id number] [place] [address] 02870- 4856 Jan, Fatigue 780.79 [place] [id number] [place] [address] 69980- 7517 Jan, [place] [id number] [place] [address] [phone]- 2731 Jan, Diabetes with other specified manifestations, type II or unspecified type, not stated as uncontrolled 250.80 [address] [place] [id number] [place] [address] 40991- 1122 Jan, [place] [id number] [place] [address] 73352- 9129 Dec, Hot flashes 627.2 ; Memory loss 780.93 and Joint pain 719.40 [id number] [place] [address] 83450- 8174 Dec, Major depression, recurrent 296.30 ; Generalized anxiety disorder 300.02 ; Adjustment disorder with depressed mood 309.0 and No condition on [place] II V71.09 [place] [id number] [place] [address] [phone]- [phone] Dec, [place] [id number] [place] [address] 32512- [phone] Nov, Cognitive and neurobehavioral dysfunction 294.9 ; Major depressive disorder, recurrent episode, moderate degree 296.32 and Anxiety state , unspecified 300.00 [place] [address], [place] [address] Nov, [place] [id number] [place] [address]- 6028 Nov, Bronchitis 490 and Diabetes with other specified manifestations, type II or unspecified type, not stated as uncontrolled 250.80 [place] [id number] [place] [address]58- 3444 Nov, Major depressive disorder, recurrent episode, moderate 296.32 and Anxiety disorder, unspecified 300.[id number] [place] [address]8859- 9475 Nov, Anxiety, generalized 300.02 ; Intermittent explosive disorder 312.34 ; No condition on [place] II V71.09 and No condition on axis III V71.09 [place] [id number] [place] [address] 70951- 5543 Oct, Diabetes with other specified manifestations, type II or unspecified type, not stated as uncontrolled 250.80 ; Urinary tract infection, site not specified 599.0 and Bronchitis 490 [place] [id number] [place] [address] 6[address]25- 7029 Oct, Intermittent explosive disorder 312.34 ; Bipolar 1 disorder , depressed, moderate 296.52 ; Major depression, chronic 296.20 ; No condition on [place] II V71.09 and No condition on axis III V71.09 [place] [id number] [place] [address] 5[address]70- 9237 Oct, Major depressive disorder, recurrent episode, moderate 296.32 ; Anxiety state 300.00 ; Cognitive decline 294.9 and No condition on [place] II V71.09 [place] [id number] [place] [address] 96959- 9138 Oct, [place] [id number] [place] [address] 03307- 0967 Oct, Major depressive disorder, recurrent episode, moderate 296.32 ; Anxiety disorder, unspecified 300.00 and Persistent disorder of initiating or maintaining sleep 307.42 [place] [id number] [place] [address] 19928- 6368 September, Diabetes with other specified manifestations, type II or unspecified type, not stated as uncontrolled 250.80 ; Memory loss 780.93 and Cognitive complaints 799.59 [place] [id number] [place] [address] 92952- 3444 September, No condition on [place] II V71.09 ; Major depression, recurrent 296.30 and Persistent mood [affective] disorder, unspecified 296.90 [facility] [address], [place] [address] 28 Aug, 2014 [facility] [address], [place] [address] 5859 [address], [address] [facility] [address], [place] [address] 8[address] Aug, [facility] [address], [place] [address] 3215 Jul, [facility] [address] [address] Jul, [facility] [address], [place] [address]- 6428 Jul, [facility] [address], [place] [address] 2[address] Jul, [facility] [address], [place] [address]- 1587 Jul, [facility] [address], [place] [address]- 9861 Jun, [facility] [address], [place] [address]- 9067 Jun, [facility] [address], [place] [address]- 7814 Jun, [facility] [address] [address] Jun, [facility] [address] [address] Jun, [facility] [address] 2483 Jun, [facility] [address], [place] [address]- 7987 05 Jun, 2014 [facility] [place] [facility] [address] [id number] [place] [address]- 9091 Jun, 2014 [facility] [place] [facility] [address] [id number] [place] [address]- 3764 Jun, 2014 [facility] [place] [facility] [address] [id number] [place] [address]- 9277 Jun, 2014 [facility] [place] [facility] [address] [id number] [place] [address]- 5220 Jun, 2014 [facility] [place] [facility] [address] [id number] [place] [address]- 2162 Jun, 2014 [facility] [place] [facility] [address] [facility] [id number] [place] [address]- 1357 Jun, 2014 [facility] [place] [facility] [address] [facility] [id number] [place] [address]- 6195 May, [facility] [place] [facility] [address] [id number] [place] [address]- 8848 May, [facility] [place] [facility] [address] [id number] [place] [address]- 6867 Apr, [facility] [place] [facility] [address] [id number] [place] [address]- 3554 Apr, [facility] [place] [facility] [address] [id number] [place] [address]- 3564 Apr, [facility] [place] [facility] [address] [id number] [place] [address]- 9504 Apr, [facility] [place] [facility] [address] [id number] [place] [address]- 1541 Apr, [facility] [place] [facility] [address] [facility] [id number] [place] [address]- 1843 Apr, [facility] [place] [facility] [address] [facility] [id number] [place] [address]- 1228 Apr, [facility] [place] [facility] [address] [id number] [place] [address]- 9297 Apr, [facility] [address] [id number] [place] [address]- 4996 Apr, [facility] [place] [facility] [address] [id number] [place] 3066 Apr, [facility] [address] [id number] [place] [address]- 0299 Apr, [facility] [place] [facility] [address] [id number] [place] [address]- 2670 Apr, [facility] [place] [facility] [address] [id number] [place] 0188 Apr, [facility] [place] [facility] [address] [id number] [place] [address]- 1827 Apr, [facility] [place] [facility] [address] [id number] [place] [address]- 0981 Apr, [facility] [place] [facility] [address] [id number] [place] [address]- 3877 Apr, [facility] [place] [facility] [address] [id number] [place] [address]- 3821 Apr, [facility] [address] [id number] [place] [address]- 4799 Apr, [facility] [place] [facility] [address] [id number] [place] [address]- 8181 Apr, [facility] [place] [facility] [address] [id number] [place] [address]- 3273 Apr, [facility] [place] [facility] [address] [id number] [place] [address]- 1199 Mar, [facility] [place] [facility] [address] [id number] [place] [address]- 3748 Mar, [facility] [place] [facility] [address] [id number] [place] [address]878 Mar, [facility] [place] [facility] [address] [id number] [place] [address]- 4299 Mar, [facility] [place] [facility] [address] [id number] [place] [address]- 4383 Mar, [facility] [place] [facility] [address] [id number] [place] [address]- 7774 Mar, [facility] [place] [facility] [address] [id number] [place] [address]- 4330 Mar, [facility] [place] [facility] [address] [id number] [place] [address]- 7436 Mar, [facility] [place] [facility] [address] [id number] [place] [address]- 7667 Mar, [facility] [place] [facility] [address] [id number] [place] [address]- 8292 Mar, [facility] [place] [facility] [address] [id number] [place] [address]- 8620 Mar, [facility] [place] [facility] [address] [id number] [place] [address]- 7983 Mar, [facility] [place] [facility] [address] [id number], [place] [address]- 9487 Mar, [facility] [place] [facility] [address] [id number], [place] [address]- 5999 Feb, [facility] [place] [facility] [address] [id number], [place] [address]- 8361 Feb, [facility] [place] [facility] [address] [id number] [place] [address]- 7461 30 Feb, 2014 [facility] [place] [facility] [address] [id number], [place] [address]- 9317 Feb, [facility] [place] [facility] [address] [id number], [place] [address]- 5745 Feb, [facility] [place] [facility] [address] [id number], [place] [address]- 3277 Feb, [facility] [place] [facility] [address] [id number] [place] [address]- 6395 Feb, [facility] [place] [facility] [address] [id number] [place] [address]- 3605 Feb, [facility] [place] [facility] [address] [id number] [place] [address]- 9295 Feb, [facility] [place] [facility] [address] [id number] [place] [address]- 3817 Feb, [facility] [place] [facility] [address] [id number] [place] [address]- 5451 Feb, [facility] [place] [facility] [address] [id number] [place] [address]- 0362 Feb, [facility] [place] [facility] [address] [id number] [place] [address]- 9506 Feb, [facility] [place] [facility] [address] [id number] [place] [address]- 3426 Feb, [facility] [place] [facility] [address] [id number] [place] [address]- 8349 07 Feb, 2014 [facility] [place] [facility] [address] [facility] [id number] [place] [address]- 6882 10 Jan, 2014 [facility] [place] [facility] [address] [id number], [place] [address]- 3572 08 Jan, 2013 [facility] [place] [facility] [address] [id number], [place] [address]- 4964 08 Jan, 2013 [facility] [place] [facility] [address] [id number] [place] [address]- 9936 08 Jan, 2013 [facility] [place] [facility] [address] [facility] [id number], [place] [address]- 1822 08 Jan, 2013 [facility] [place] [facility] [address] [facility] [id number] [place] [address]- 4704 Dec, [facility] [place] [facility] [address] [id number] [place] [address]- 7469 Dec, [facility] [place] [facility] [address] [id number] [place] [address]- 1088 Dec, [facility] [place] [facility] [address] [id number] [place] [address]- 0905 Dec, [facility] [place] [facility] [address] [id number] [place] [address]- 2892 Nov, [facility] [place] [facility] [address] [id number] [place] [address]- 8565 Nov, [facility] [place] [facility] [address] [id number] [place] [address]- 1471 Nov, [facility] [place] [facility] [address] [id number] [place] [address]- 9650 Nov, [facility] [place] [facility] [address] [id number] [place] [address]- 3850 Nov, [facility] [place] [facility] [address] [id number] [place] [address]- 4494 Nov, [facility] [place] [facility] [address] [id number] [place] [address]- 9977 Nov, [facility] [place] [facility] [address] [id number] [place] [address]- 9662 Nov, [facility] [place] [facility] [address] [id number] [place] [address]- 1283 Nov, [facility] [place] [facility] [address] [id number] [place] [address]- 9776 Nov, [facility] [place] [facility] [address] [id number] [place] [address]- 1278 Oct, [facility] [place] [facility] [address] [id number] [place] [address]- 0158 Oct, [facility] [place] [facility] [address] [id number] [place] [address]- 8162 September, [facility] [place] [facility] [address] [id number] [place] [address]- 8834 September, [facility] [place] [facility] [address] [id number] [place] [address]- 2217 September, [facility] [place] [facility] [address] [id number] [place] [address]- 2699 September, [facility] [place] [facility] [address] [id number] [place] [address]- 9530 Aug, [facility] [place] [facility] [address] [id number] [place] [address]- 9593 Aug, [facility] [place] [facility] [address] [id number] [place] [address]- 2154 Aug, [facility] [place] [facility] [address] [id number] [place] [address]- 6440 Jul, [facility] [place] [facility] [address] [id number] [place] [address]- 8197 Jul, [facility] [place] [facility] [address] [id number] [place] [address]- 3091 Jul, [facility] [place] [facility] [address] [id number] [place] [address]- 1265 Jul, [facility] [place] [facility] [address] [id number] [place] [address]- 5581 May, [facility] [place] [facility] [address] [id number] [place] [address]- 1767 May, [facility] [place] [facility] [address] [id number] [place] [address]- 6129 May, [facility] [place] [facility] [address] [id number] [place] [address]- 8786 Mar, [facility] [place] [facility] [address] [id number] [place] [address]- 2879 Mar, [facility] [place] [facility] [address] [id number] [place] [address]- 0649 Mar, [facility] [place] [facility] [address] [id number] [place] [address]- 3196 Mar, [facility] [place] [facility] [address] [id number] [place] [address]- 5866 Feb, [facility] [place] [facility] [address] [id number] [place] [address] 254 Feb, [facility] [place] [facility] [address] [id number] [place] [address]- 8178 Feb, [facility] [place] [facility] [address] [id number] [place] [address]- 8565 Jan, [facility] [place] [facility] [address] [id number] [place] [address]- 2657 Jan, [facility] [place] [facility] [address] [id number] [place] [address]- 9046 Jan, [facility] [place] [facility] [address] [id number] [place] [address]- 0898 Dec, [facility] [place] [facility] [address] [id number] [place] [address]- 4265 Dec, [facility] [place] [facility] [address] [id number] [place] [address]- 6784 Dec, [facility] [place] [facility] [address] [id number] [place] [address]- 5425 Dec, [facility] [place] [facility] [address] [id number] [place] [address] 2542 Nov, [facility] [place] [facility] [address] [id number] [place] [address]- 3215 Oct, [facility] [place] [facility] [address] [id number] [place] [address]- 2546 Oct, [facility] [place] [facility] [address] [id number] [place] [address]- 5196 September, [facility] [place] [facility] [address] [id number] [place] [address]- 3247 September, [facility] [address] [id number] [place] 1031 September, [facility] [address] [id number] [place] 6816 Aug, [facility] [address] [id number] [place] [address]- 4701 Aug, [facility] [address] [id number] [place] [address]- 6080 Aug, [facility] [address] [id number] [place] [address]- 3050 Aug, [facility] [address] [id number] [place] [address]- 2498 Jul, [facility] [address] [id number] [place] [address]- 4790 Jul, [facility] [address] [id number] [place] [address]- 0000 Jul, [facility] [address] [id number] [place] [address]- 0917 15 Jul, 2012 [facility] [address] [id number] [place] [address]- 4699 14 Jul, 2012 [facility] [address] [id number] [place] [address]- 0128 Jul, [facility] [address] [id number] [place] [address]- 9861 Jul, [facility] [place] [facility] [address] [id number] [place] 0412 Jun, [facility] [address] [id number] [place] [address]- 4428 Jun, [facility] [address] [id number], [place] [address]- 9520 05 Jun, 2012 [facility] [address] [id number] [place] [address]- 0212 Jun, [facility] [place] [facility] [address] [id number] [place] [address]- 7904 May, [facility] [address] [facility] [id number] [place] [address]- 7276 May, [facility] [place] [facility] [address] [id number] [place] [address]- 6744 May, [facility] [address] [id number] [place] [address]- 5074 May, [facility] [address] [id number] [place] [address]- 1338 May, [facility] [address] [facility] [id number] [place] [address]- 4519 Apr, [facility] [address] [id number] [place] [address]- 1282 Apr, [facility] [address] [facility] [id number] [place] [address]- 9964 Mar, [facility] [address] [facility] [id number] [place] [address]- 6899 Mar, [facility] [address] [id number] [place] [address]- 6793 Mar, [facility] [place] [facility] [address] [id number], [place] [address]- 9373 Mar, [facility] [place] [facility] [address] [id number] [place] [address]- 2613 Mar, [facility] [place] [facility] [address] [facility] [id number] [place] [address]- 1134 Mar, [facility] [place] [facility] [address] [facility] [id number] [place] [address]- 4143 Mar, [facility] [place] [facility] [address] [id number] [place] [address] 2544 Mar, [facility] [place] [facility] [address] [id number] [place] [address]- 0513 Mar, [facility] [place] [facility] [address] [id number] [place] [address] 2546 Mar, [facility] [place] [facility] [address] [id number] [place] [address]- 0619 Feb, [facility] [place] [facility] [address] [id number] [place] [address]- 2145 Feb, [facility] [place] [facility] [address] [id number] [place] [address]- 8929 Feb, [facility] [place] [facility] [address] [id number] [place] [address]- 5353 Feb, [facility] [place] [facility] [address] [id number] [place] [address]- 1388 Feb, [facility] [place] [facility] [address] [id number] [place] [address]- 6207 Feb, [facility] [place] [facility] [address] [id number] [place] [address]- 2836 Feb, [facility] [place] [facility] [address] [id number] [place] [address]- 4265 Jan, [facility] [place] [facility] [address] [id number] [place] [address]- 0838 Jan, [facility] [place] [facility] [address] [id number] [place] [address]- 9043 Dec, [facility] [place] [facility] [address] [id number] [place] [address]- 4911 Dec, [facility] [place] [facility] [address] [id number] [place] [address]- 7606 Dec, [facility] [place] [facility] [address] [id number] [place] [address]- 0418 Dec, [facility] [place] [facility] [address] [id number] [place] [address]- 1625 Dec, [facility] [place] [facility] [address] [id number] [place] [address]- 9883 Dec, [facility] [place] [facility] [address] [id number] [place] [address]- 9175 Nov, [facility] [place] [facility] [address] [id number] [place] [address]- 2593 Nov, [facility] [place] [facility] [address] [id number] [place] [address]- 2591 Nov, [facility] [place] [facility] [address] [id number] [place] [address] Nov, [facility] [place] [facility] [address] [id number] [place] [address] September, [facility] [place] [facility] [address] [id number] [place] [address] September, [facility] [place] [facility] [address] [id number] [place] [address] September, [facility] [place] [facility] [address] [id number] [place] [address] Jul, [facility] [place] [facility] [address] [id number] [place] [address] Jun, [facility] [place] [facility] [address] [id number] [place] [address] Jun, [facility] [place] [facility] [address] [id number] [place] [address] Jun, [facility] [place] [facility] [address] [id number] [place] [address] Apr, [facility] [place] [facility] [address] [id number] [place] [address] Mar, [facility] [place] [facility] [address] [id number] [address] Mar, [facility] [address] [id number] [address] Feb, [facility] [id number], [place] [address] Feb, [facility] [id number], [place] [address] Feb, [facility] [id number], [place] [address] Jul, [facility] [id number], [place] [address] Feb, IMMUNIZATIONS No Known Immunizations SOCIAL HISTORY Never Assessed REASON FOR VISIT Congestion Pt in for congestion, states she feels off balance Pt also c/o vaginal discharge and odor, feels she has a yeast infection LOPEZ Gutierrez PLAN OF CARE VITAL SIGNS Height 62 in 2018-01-15 Weight 241.8 lbs 2018-01-15 Temperature 98.1 degrees Fahrenheit 2018-01-15 Heart Rate 88 bpm 2018-01-15 Respiratory Rate 20 2018-01-15 BMI 44.22 kg/m2 2018-01-15 Blood pressure systolic 142 mmHg 2018-01-15 Blood pressure diastolic 80 mmHg 2018-01-15 MEDICATIONS Medication Instructions Dosage Frequency Start Date End Date Duration Status PredniSONE 20 mg 1 tablet 24h Active Glucocard Expression Test - as directed 24h Nov, 50 Active Terbinafine HCl 1 % Externally Twice a day 1 application to affected area 12h Aug, Active Lasix Active Methotrexate 2.5 MG Orally 1 time per week 6 Active Victoza Active Lisinopril-Hydrochlorothiazide 20-25 MG TAKE ONE TABLET BY MOUTH ONCE DAILY 30 Active Potassium Chloride Marie ER 20 MEQ TAKE ONE TABLET BY MOUTH ONCE DAILY WITH FOOD 30 Active Orr 7.5-325 MG Orally every 6 hrs 1 tablet as needed 6h Dec, Active Proventil HFA 108 (90 Base) MCG/ACT INHALE TWO PUFFS BY MOUTH FOUR TIMES DAILY NEEDED 25 Active Spironolactone 25 MG TAKE ONE TABLET BY MOUTH ONCE DAILY 30 Active Zithromax Z-Ramirez 250 MG Orally Once a day 2 tablets on the first day, then 1 tablet daily for 4 days 24h Dec, Dec, 5 day(s) Active Diflucan 150 MG Orally Once a day 1 tablet 24h Dec, Dec, 03 days Active Benzonatate 100 MG TAKE ONE CAPSULE BY MOUTH THREE TIMES DAILY NEEDED 10 Active Furosemide 20 MG TAKE 1 TABLET BY MOUTH ONCE DAILY 30 Active Omeprazole Active Cymbalta 60 mg Orally Twice a day 1 capsule 12h Aug, Active Neurontin 300 MG Orally Three times a day 1 capsule 8h Nov, 30 day(s) Active Magnesium Oxide 400 mg Orally Once a day 1 tablet as needed 24h 30 day(s) Active Folic Acid 1 MG TAKE ONE TABLET BY MOUTH ONCE DAILY (DO NOT TAKE ON DAYS YOU TAKE METHOTREXATE) 30 Active Actos 30 MG TAKE ONE TABLET [...]
[2018-05-09 22:44] LABS: BILIRUBIN,URINE NEGATIVE (NEGATIVE); CLARITY,URINE CLEAR; COLOR,URINE YELLOW; GLUCOSE, URINE (UA) 4+ (NEGATIVE); KETONES,URINE NEGATIVE (NEGATIVE); LEUKOCYTE ESTERASE ,URINE 3+ (NEGATIVE); NITRITE,URINE NEGATIVE (NEGATIVE); PH,URINE 6 (5-9); PROTEIN,URINE NEGATIVE (NEGATIVE); UROBILINOGEN,URINE NORMAL (NORMAL)
--- OUTSIDE RECORDS SUMMARY | 2018-05-09 22:44 | XMS REPORT ---
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 Name Role Phone SUNNY WONG Unavailable PROBLEMS Type Condition ICD9-CM Code IXX85-RO Code Onset Dates Condition Status SNOMED Code Problem Controlled type 2 diabetes mellitus without complication, without long -term current use of insulin E11.9 Active 819637837 Problem Body mass index (BMI) of 45.0-49.9 in adult Z68.42 Active 898115356 Problem Tachycardia with heart rate 121-140 beats per minute R00.0 Active 7429055 Problem Facial droop R29.810 Active 62029894 Problem Menopause Z78.0 Active 125061505 Problem Gait disturbance R26.9 Active 40959395 Problem Dermatomyositis M33.90 Active 630512871 Problem Enlarged thyroid gland E04.9 Active 6619698 Problem Lumbago with sciatica, right side M54.41 Active 017931085 Problem Morbid (severe) obesity due to excess calories E66.01 Active 164907061 Problem Diabetes type 2, controlled E11.9 Active 98164539 Problem Osteoarthritis of right knee, unspecified osteoarthritis type M17.9 Active 873781563 Problem Allergic rhinitis due to pollen J30.1 Active 43781156 Problem Mood disorder F39 Active 37092988 Problem Arthritis M19.90 Active 0566487 Problem Plantar warts B07.0 Active 99767661 Problem Anxiety F41.9 Active 98945922 Problem Plantar wart of both feet B07.0 Active [id number] Problem Other chronic pain G89.29 Active 35052163 Problem Lumbago with sciatica, left side M54.42 Active 945571314 ALLERGIES No Information ENCOUNTERS Encounter Location Date Diagnosis [facility] [address] [facility] [id number] [address] Mar, [facility] [address] [place] [id number] [place] [address] 83918- 8923 Feb, [facility] [address] [place] [id number] [place] [address] 20345- 1770 Feb, [facility] [address] [place] [id number] [place] [address] 09560- 6898 28 Jan, 2018 [place] [address] 20364- 5632 27 Jan, 2018 [place] [address] 46201- 1931 19 Jan, 2018 Allergic reaction to drug, initial encounter T78.40XA [place] [address] 35481- 4867 17 Jan, 2018 BMI 45.0-49.9, adult Z68.42 and Facial droop R29.810 [place] [address] [place] [id number] [place] [address] 49687- 5826 14 Jan, 2018 Mood disorder F39 [place] [address] [place] [id number] [place] [address] 24448- 0740 11 Jan, 2018 Dermatomyositis M33.90 and BMI 40.0-44.9, adult Z68.41 [place] [address] [place] [id number] [place] [address] 23899- 2791 10 Jan, 2018 [place] [address] [place] [id number] [place] [address] 25387- 5679 05 Jan, 2018 [place] [address] [place] [id number] [place] [address] 78961- 7193 04 Jan, 2018 Irritation of left eye H57.8 and BMI 40.0-44.9, adult Z68.41 [place] [address] [place] [id number] [place] [address] 46559- 4684 Dec, Diabetes type 2, controlled E11.9 [place] [address] [place] [id number] [place] [address] 79879- 6230 Dec, Acute right ankle pain M25.571 [facility] [address] [place] [id number] [place] [address] 42322- 2259 Dec, Other chronic pain G89.29 ; Diabetes type 2, controlled E11.9 ; Gait disturbance R26.9 ; Weakness R53.1 and Muscle spasm M62.838 [facility] [address] [place] [id number] [place] [address] 69956- 2626 Dec, Acute non-recurrent maxillary sinusitis J01.00 [facility] [address] 84740- 8106 Dec, [facility] [address] 45818- 1134 Dec, [facility] [address] 67731- 0255 Dec, Acute non-recurrent maxillary sinusitis J01.00 [facility] [address] 54386- 3433 Dec, Lumbago with sciatica, right side M54.41 and Lupus erythematosus L93.0 [facility] [address] 92696- 2944 Dec, Mood disorder F39 [facility] [address] [place] [id number] [place] [address] 80250- 8521 Dec, Mood disorder F39 [facility] [address] [place] [id number] [place] [address] 09733- 0331 Dec, [facility] [address] [id number] [place] [address] 05558- 0027 Dec, Acute right ankle pain M25.571 [facility] [address] 57675- 8822 Nov, Lumbar radiculopathy M54.16 [facility] [address] [place] [id number] [place] [address] 18807- 1958 Nov, [place] [address] [address] 6922 Nov, Mood disorder F39 [facility] [address] [place] [id number] [place] [address] 20445- 1358 Nov, Lumbago with sciatica, right side M54.41 and Other chronic pain G89.29 [facility] [address] [id number] [place] [address] 48216- 9778 Nov, Acute right ankle pain M25.571 [facility] [address] [place] [id number] [place] [address] 51854- 5265 Nov, [facility] [address] [id number] [place] [address] 68261- 1724 Oct, [facility] [address] [place] [id number] [place] [address] 14288- 1236 Oct, Plantar wart of both feet B07.0 [facility] [address] [place] [id number] [place] [address] 81710- 6779 Oct, [facility] [address] [place] [id number] [place] [address] 80136- 8780 Oct, Acute right ankle pain M25.571 and Plantar wart of both feet B07.0 [facility] [address] [place] [address] 03659- 0346 September, Other chronic pain G89.29 [facility] [address] [place] [id number] [place] [address] 57684- 4736 September, Other chronic pain G89.29 [facility] [address] [place] [address] 77685- 7497 September, Other chronic pain G89.29 [facility] [address] [place] [address] 54968- 4637 Aug, Mood disorder F39 [facility] [address] [place] [id number] [place] [address] 52324- 3081 Aug, Other chronic pain G89.29 ; Controlled type 2 diabetes mellitus without complication, without long-term current use of insulin E11.9 ; Low back pain M54.5 and Tinea corporis B35.4 [place] [address] 07914- 0650 Aug, Mood disorder F39 and Anxiety F41.9 [place] [address] 53977- 1646 Aug, Mood disorder F39 and Anxiety F41.9 [place] [address] 08963- 7700 Jul, [facility] [address] 74[address] -9574 Jul, Scabies B86 and BMI 45.0-49.9, adult Z68.[address] 46263- 7028 Jul, [place] [address] 20514- 6689 Jul, Mood disorder F39 and Anxiety F41.9 [place] [address] 47432- 4751 Jul, [facility] [place] [address] 51935 -2504 27 Jun, 2017 Bronchitis J40 ; Dark urine R82.99 and BMI 45.0-49.9, adult Z68.42 [place] [address] 84400- 6603 14 Jun, 2017 Acute pain of right shoulder M25.511 and Acute pain of right knee M25.561 [place] [address] 78453- 7618 May, BMI 40.0-44.9, adult Z68.41 ; Controlled type 2 diabetes mellitus without complication, without long-term current use of insulin E11.9 ; Muscle cramping R25.2 ; Hot flashes R23.2 ; Mood disorder F39 ; Anxiety F41.9 and Morbid (severe) obesity due to excess calories E66.01 [place] [address] [place] [address] 12903- 9331 May, BMI 40.0-44.9, adult Z68.41 ; Controlled type 2 diabetes mellitus without complication, without long-term current use of insulin E11.9 ; Muscle cramping R25.2 and Hot flashes R23.2 [place] [address] [place] [id number] [place] [address] 31156- 6634 May, Tachycardia with heart rate 121-140 beats per minute R00.0 ; Morbid (severe) obesity due to excess calories E66.01 ; Diabetes type 2, controlled E11.9 and Enlarged thyroid gland E04.9 [place] [id number] [place] [address] 25794- 0628 May, Encounter for well woman exam with [...] Dysuria R30.0 and Screening breast examination Z12.31 [place] [address] [place] [address] 17448- 1016 Apr, Mood disorder F39 ; Other chronic pain G89.29 and Anxiety F41.9 [place] [address] [place] [address] 41590- 5641 Apr, Lumbago with sciatica, left side M54.42 and Other chronic pain G89.29 [place] [address] [place] [id number] [place] [address] 10999- 2877 Apr, Lupus erythematosus L93.0 [address] [place] [address] 87775- 6666 Mar, Plantar wart of both feet B07.0 [facility] [address] [place] [id number] [place] [address] 42620- 0016 Mar, Lupus erythematosus L93.0 and Sinus drainage J34.89 [facility] [address] [place] [id number] [place] [address] 11173 2546 Mar, Mood disorder F39 ; Other chronic pain G89.29 and Anxiety F41.9 [facility] [address] [place] [id number] [place] [address] 15498 2545 Mar, Mood disorder F39 ; Arthritis M19.90 and Plantar warts B07.0 [facility] [address] [place] [id number] [place] [address] 08024- 0956 Feb, Lupus erythematosus L93.0 [facility] [address] [place] [id number] [place] [address] 92214- 0676 Feb, Other chronic pain G89.29 [facility] [address] [place] [id number] [place] [address] 15401- 3735 Feb, Mood disorder F39 and Anxiety F41.9 [facility] [address] [place] [id number] [place] [address] 86184- 9991 Jan, [facility] [address] [place] [id number] [place] [address] 09668- 7362 Jan, Mood disorder F39 [facility] [address] [place] [id number] [place] [address] 48847- 6014 Dec, Nail, ingrown L60.0 [facility] [address] [place] [id number] [place] [address] 41678- 0836 Dec, Nail, ingrown L60.0 [facility] [address] [place] [id number] [place] [address] 69909- 0444 Nov, Mood disorder F39 and Anxiety F41.9 [facility] [address] [place] [id number] [place] [address] 20462- 6790 Nov, Sinus drainage J34.89 ; Hot flashes R23.2 ; Anxiety F41.9 and Diabetes type 2, controlled E11.9 [facility] [address] [place] [address] 07759- 0945 Nov, Nail, ingrown L60.0 [facility] [address] [place] [id number] [place] [address] 58713- 6181 Oct, Anxiety F41.9 and Mood disorder F39 [facility] [address] [place] [id number] [place] [address] 42791- 5574 Oct, Nail, ingrown L60.0 and Anxiety F41.9 [facility] [address] [place] [id number] [place] [address] 55206- 9693 Oct, Lupus erythematosus L93.0 [facility] [address] [place] [id number] [place] [address] 16342- 2374 September, [facility] [address] [place] [id number] [place] [address] 28923- 7109 September, [facility] [address] [place] [id number] [place] [address] 22971- 6880 September, Lupus erythematosus L93.0 [facility] [address] [place] [id number] [place] [address] 52537- 9667 Aug, [facility] [address] [place] [id number] [place] [address] 38585- 2027 Aug, Mood disorder F39 and Anxiety F41.9 [facility] [address] [place] [id number] [place] [address] 70821- 7787 Aug, Lupus erythematosus L93.0 ; Diabetes type 2, controlled E11.9 and Localized edema R60.0 [facility] [address] [place] [address] 23087- 3181 Aug, [facility] [address] [place] [id number] [place] [address] 70008- 2120 Jul, Anxiety F41.9 and Mood disorder F39 [place] [address] [place] [id number] [place] [address] 42017- 2520 10 Jul, 2016 Diabetes type 2, controlled E11.9 [place] [address] [place] [id number] [place] [address] 18629- 1417 13 Jun, 2016 Anxiety F41.9 [place] [address] [place] [id number] [place] [address] 17075- 2512 May, [place] [address] [place] [id number] [place] [address] 06071- 4968 May, [place] [address] [place] [id number] [place] [address] 52563- 7154 May, Nausea R11.0 ; Other chronic pain G89.29 and Pain in right knee M25.561 [place] [address] [place] [id number] [place] [address] 37209- 1000 May, [place] [address] [place] [id number] [place] [address] 33362- 5883 Apr, Tear of medial meniscus of right knee, current, unspecified tear type, subsequent encounter S83.241D and Tear of lateral meniscus of right knee, current, unspecified tear type, subsequent encounter S83.281D [place] [address] [place] [address] 35165- 0616 Apr, Anxiety F41.9 and Mood disorder F39 [place] [address] [place] [address] 08260- 3574 Apr, Anxiety F41.9 [place] [address] [place] [id number] [place] [address] 21205- 5073 Apr, [place] [address] [place] [id number] [place] [address] 90986- 9800 Mar, [place] [address] [place] [address] 43248- 9856 Mar, Lupus erythematosus L93.0 and Diabetes type 2, controlled E11.9 [facility] [address] [place] [id number] [place] [address] 66942- 5965 Mar, Mood disorder F39 [facility] [address] [place] [id number] [place] [address] 35885- 6284 Mar, Tear of lateral meniscus of right knee, current, unspecified tear type, initial encounter S83.281A and Osteoarthritis of right knee, unspecified osteoarthritis type M17.9 [facility] [address] [place] [id number] [place] [address] 23611- 9630 Mar, [facility] [address] 37262- 9084 Feb, Mood disorder F39 [facility] [address] [place] [id number] [place] [address] 49253- 7674 Feb, Rash R21 [facility] [address] 81065- 0712 Feb, [facility] [address] [place] [id number] [place] [address] 70740- 6924 Jan, Other chronic pain G89.29 and Muscle spasm M62.838 [facility] [address] [place] [id number] [place] [address] 36185- 1022 Jan, Mood disorder F39 [facility] [address] [place] [id number] [place] [address] 36033 2541 Jan, Pain in right knee M25.561 ; Other chronic pain G89.29 and Muscle spasm M62.838 [facility] [address] [place] [id number] [place] [address] 62965- 3246 Dec, [facility] [address] [place] [id number] [place] [address] 24012 2546 Dec, [facility] [address] [place] [id number] [place] [address] 93159- 9876 Nov, [facility] [address] [place] [address]- 8511 Nov, Mood disorder F39 [place] [address] [place] [id number] [place] [address] 68565- 6738 Nov, Diabetes type 2, controlled E11.9 ; Bronchitis J40 ; Edema, unspecified type R60.9 ; Weight gain R63.5 and Right knee pain, unspecified chronicity M25.561 [place] [address] [place] [id number] [place] [address] 60230- 0812 Oct, Mood disorder F39 [place] [address] [place] [id number] [place] [address] 51968- 9761 Oct, Lupus erythematosus L93.0 and Bilateral edema of lower extremity R60.0 [place] [address] [place] [id number] [place] [address] 52795- 0001 Oct, Mood disorder F39 and Anxiety F41.9 [place] [address] [place] [id number] [place] [address] 01467- 2448 September, Mood disorder F39 ; Anxiety F41.9 and Anger reaction R45.4 [place] [address] [place] [id number] [place] [address] 39033- 4199 September, Diabetes type 2, controlled E11.9 ; Edema, unspecified type R60.9 and Fatigue, unspecified type R53.83 [place] [address] [place] [id number] [place] [address] 32897- 6172 Aug, Mood disorder F39 and Generalized anxiety disorder F41.1 [place] [address] [place] [id number] [place] [address] 93885- 1774 Aug, Diabetes type 2, controlled E11.9 ; Sinusitis J32.9 and Mood disorder F39 [place] [address] [place] [id number] [place] [address] 30924- 8860 15 Aug, 2015 Lupus erythematosus L93.0 [place] [address] [place] [id number] [place] [address] 44652- 3328 14 Aug, 2015 [facility] [address] [address]- 0977 07 Aug, 2015 [facility] [address] [place] [id number] [place] [address] 30468 2546 Jul, Diabetes type 2, controlled E11.9 [facility] [address] [place] [id number] [place] [address], [place] [address] 2546 Jul, Mood disorder F39 and Depression F32.9 [facility] [address] [place] [id number] [place] [address] 54268 2546 Jul, Lupus erythematosus L93.0 and Diabetes type 2, controlled E11.9 [facility] [address] [place] [id number] [place] [address], [place] [address] 2546 Jul, Mood disorder F39 and Anxiety F41.9 [facility] [address] [place] [id number] [place] [address] 93121- 4506 Jul, [facility] [address] [place] [address] 79968 254 Jul, [facility] [address] [place] [address] 82236- 2259 Jun, Mood disorder F39 and Anxiety F41.9 [facility] [address] [place] [address] 13182- 3181 Jun, Mood disorder F39 [facility] [address] [place] [id number] [place] [address] 14400 2546 18 Jun, 2015 [facility] [address] [place] [address] 52350 2548 15 Jun, 2015 [facility] [address] [place] [id number] [place] [address] 32235- 1556 08 Jun, 2015 Mood disorder F39 [facility] [address] [place] [address] 99927- 5486 04 Jun, 2015 [facility] [address] [place] [id number] [place] [address] 62078- 8639 May, [facility] [address] [address]- 4266 May, [facility] [id number] [place] [address] 15080- 5991 May, [facility] [id number] [place] [address] 53150- 3240 May, [facility] [address] [place] [id number] [place] [address] 66275- 2525 May, Anxiety F41.9 ; Dermatomyositis M33.90 and Diabetes type 2, controlled E11.9 [facility] [address] [place] [address] 78471 -7417 May, Sinusitis J32.9 and Cough R05 [facility] [id number] [place] [address] 02583- 6118 May, Mood disorder F39 [facility] [address] [place] [id number] [place] [address] 92146- 3165 May, Adjustment disorder with mixed anxiety and depressed mood F43.23 [facility] [address] [place] [address] 61770- 7518 Apr, [facility] [address] [address]- 0716 Apr, [facility] [id number] [place] [address] 80632- 8691 Apr, Generalized anxiety disorder F41.1 and Mood disorder F39 [facility] [address] [address]- 1109 Mar, [facility] [id number] [place] [address] 55305- 5161 Mar, [facility] [address] [address]- 9103 Mar, [facility] [address] [place] [id number] [place] [address] 64334- 2762 Mar, Mood disorder F39 [place] [address] [place] [id number] [place] [address] 11147- 1547 Feb, [facility] [id number] [place] [address] 11325- 5888 Feb, Diabetes E11.9 and Bronchitis J[address] 26713- 8978 Feb, [place] [id number] [place] [address] 03885- 4445 Feb, [place] [id number] [place] [address] 13630- 1715 Feb, Major depression, recurrent, full remission F33.42 and KELLY ( generalized anxiety disorder) F41.1 [address] 32[address]- [address]394 Feb, [place] [id number] [place] [address] 57887- 2972 Feb, Single major depressive episode, in partial or unspecified remission F32.5 [place] [id number] [place] [address] 76022- 1313 Jan, Fatigue 780.79 [place] [id number] [place] [address] 30983- 5714 Jan, [place] [id number] [place] [address] 61504- 3260 Jan, Diabetes with other specified manifestations, type II or unspecified type, not stated as uncontrolled 250.80 [place] [id number] [place] [address] [id number]- 8526 Jan, [place] [id number] [place] [address] 92693- 0595 Dec, Hot flashes 627.2 ; Memory loss 780.93 and Joint pain 719.40 [address] [place] [id number] [place] [address] 67780- 8817 Dec, Major depression, recurrent 296.30 ; Generalized anxiety disorder 300.02 ; Adjustment disorder with depressed mood 309.0 and No condition on [place] II V71.09 [place] [id number] [place] [address] 16873- 2338 Dec, [place] [id number] [place] [address] 47528- 8561 Nov, Cognitive and neurobehavioral dysfunction 294.9 ; Major depressive disorder, recurrent episode, moderate degree 296.32 and Anxiety state , unspecified 300.00 [id number] [place] [address] 77832- 1347 Nov, [id number] [place] [address] 14981- 6606 Nov, Bronchitis 490 and Diabetes with other specified manifestations, type II or unspecified type, not stated as uncontrolled 250.80 [id number] [place] [address] 66958- 0075 Nov, Major depressive disorder, recurrent episode, moderate 296.32 and Anxiety disorder, unspecified 300.00 [id number] [place] [address] 50269- 9370 Nov, Anxiety, generalized 300.02 ; Intermittent explosive disorder 312.34 ; No condition on [place] II V71.09 and No condition on axis III V71.09 [place] [address] [id number] [place] [address] 68325- 8497 Oct, Diabetes with other specified manifestations, type II or unspecified type, not stated as uncontrolled 250.80 ; Urinary tract infection, site not specified 599.0 and Bronchitis [id number] [place] [address] 48475- 5464 Oct, Intermittent explosive disorder 312.34 ; Bipolar 1 disorder , depressed, moderate 296.52 ; Major depression, chronic 296.20 ; No condition on [place] II V71.09 and No condition on axis III V71.09 [facility] [id number] [address] 15 Oct, 2014 Major depressive disorder, recurrent episode, moderate 296.32 ; Anxiety state 300.00 ; Cognitive decline 294.9 and No condition on [place] II V71.09 [facility] [address] [place] [id number] [place] [address] 47332- 4139 Oct, [facility] [address] [id number] [place] [address] 19336- 2048 Oct, Major depressive disorder, recurrent episode, moderate 296.32 ; Anxiety disorder, unspecified 300.00 and Persistent disorder of initiating or maintaining sleep 307.42 [place] [address] [address] [place] [id number] [place] [address] 60329- 4823 September, Diabetes with other specified manifestations, type II or unspecified type, not stated as uncontrolled 250.80 ; Memory loss 780.93 and Cognitive complaints 799.59 [place] [address] [address] [place] [id number] [place] [address] 57946- 8158 September, No condition on [place] II V71.09 ; Major depression, recurrent 296.30 and Persistent mood [affective] disorder, unspecified 296.90 [facility] [address] [id number] [place] [address] 19059- 4296 Aug, [facility] [id number] [address]- 1207 Aug, [facility] [address] [id number] [place] [address] 24015- 5202 Aug, [facility] [id number] [place] [address] 21695- 5366 Jul, [facility] [id number] [place] [address] 97830- 4770 Jul, [facility] [address] [id number] [place] [address] 23874- 7456 Jul, [facility] [address] [place] [address]- 5614 Jul, 2014 [facility] [place] [facility] [address] [facility] [id number] [place] [address]- 0962 Jul, 2014 [facility] [place] [facility] [address] [facility] [id number] [place] [address]- 6504 Jun, 2014 [facility] [place] [facility] [address] [facility] [id number] [place] [address]- 1901 Jun, 2014 [facility] [place] [facility] [address] [facility] [id number] [place] [address]- 7856 Jun, 2014 [facility] [place] [facility] [address] [facility] [id number] [place] [address]- 9379 Jun, 2014 [facility] [place] [facility] [address] [place] [id number] [place] [address]- 9509 Jun, 2014 [facility] [place] [facility] [address] [id number] [place] [address]- 4234 Jun, 2014 [facility] [place] [facility] [address] [facility] [id number] [place] [address]- 3106 Jun, 2014 [facility] [place] [facility] [address] [id number] [place] [address]- 9378 Jun, 2014 [facility] [place] [facility] [address] [place] [address] [id number] [place] [address]- 6287 Jun, 2014 [facility] [place] [facility] [address] [facility] [id number] [place] [address]- 8796 Jun, 2014 [facility] [place] [facility] [address] [facility] [id number] [place] [address]- 5564 Jun, 2014 [facility] [place] [facility] [address] [facility] [id number] [place] [address]- 1528 Jun, 2014 [facility] [place] [facility] [address] [facility] [id number] [place] [address]- 4962 Jun, 2014 [facility] [place] [facility] [address] [address]- 2546 May, [facility] [place] [facility] [address] [id number] [place] 1603 May, [facility] [place] [facility] [address] [id number] [place] 3336 Apr, [facility] [place] [facility] [address] [id number] [place] [address]- 6096 Apr, [facility] [place] [facility] [address] [id number] [place] [address]- 1392 Apr, [facility] [place] [facility] [address] [id number] [place] [address]- 7657 Apr, [facility] [place] [facility] [address] [id number] [place] [address]- 3968 Apr, [facility] [place] [facility] [address] [id number] [place] [address]- 6738 Apr, [facility] [place] [facility] [address] [id number] [place] [address]- 6690 Apr, [facility] [place] [facility] [address] [id number] [place] [address]- 4714 Apr, [facility] [place] [facility] [address] [id number] [place] [address]- 0885 Apr, [facility] [place] [facility] [address] [id number] [place] [address]- 1186 Apr, [facility] [place] [facility] [address] [id number] [place] [address]- 3532 Apr, [facility] [place] [facility] [address] [id number] [place] [address]- 5189 Apr, [facility] [place] [facility] [address] [id number] [place] [address]- 9250 Apr, [facility] [place] [facility] [address] [id number] [place] [address]- 5845 Apr, [facility] [place] [facility] [address] [id number] [place] [address]- 3429 Apr, [facility] [place] [facility] [address] [id number] [place] [address]- 1867 Apr, [facility] [place] [facility] [address] [id number] [place] [address]- 5999 Apr, [facility] [place] [facility] [address] [id number] [place] [address]- 0568 Apr, [facility] [place] [facility] [address] [id number] [place] [address]- 2275 Apr, [facility] [place] [facility] [address] [id number] [place] [address]- 3521 Apr, [facility] [place] [facility] [address] [id number] [place] [address]- 3530 Mar, [facility] [place] [facility] [address] [id number] [place] [address]- 8262 Mar, [facility] [place] [facility] [address] [id number] [place] [address]- 7157 Mar, [facility] [place] [facility] [address] [id number] [place] [address]- 3237 Mar, [facility] [place] [facility] [address] [id number] [place] [address]- 8952 Mar, [facility] [place] [facility] [address] [id number] [place] [address]- 0069 Mar, [facility] [place] [facility] [address] [id number] [place] [address]- 9040 Mar, [facility] [place] [facility] [address] [id number] [place] [address]- 0981 Mar, [facility] [place] [facility] [address] [id number] [place] [address]- 1114 Mar, [facility] [place] [facility] [address] [id number] [place] [address]- 3932 Mar, [facility] [place] [facility] [address] [id number] [place] [address]- 7189 Mar, [facility] [place] [facility] [address] [id number] [place] [address]- 8147 Mar, [facility] [place] [facility] [address] [id number] [place] [address]- 3615 Mar, [facility] [place] [facility] [address] [id number] [place] [address]- 9648 Feb, [facility] [place] [facility] [address] [id number] [place] [address]- 9448 Feb, [facility] [place] [facility] [address] [id number] [place] [address]- 5352 Feb, [facility] [place] [facility] [address] [id number] [place] [address]- 8675 Feb, [facility] [place] [facility] [address] [id number] [place] [address]- 3166 Feb, [facility] [place] [facility] [address] [id number] [place] [address]- 6583 Feb, [facility] [place] [facility] [address] [id number] [address]- 9103 Feb, [facility] [place] [facility] [address] [id number] [address]- 0752 Feb, [facility] [place] [facility] [address] [id number] [address]- 1437 Feb, [facility] [place] [facility] [address] [id number] [place] [address]- 3984 Feb, [facility] [place] [facility] [address] [id number] [address]- 6066 Feb, [facility] [place] [facility] [address] [id number] [address]- 5422 Feb, [facility] [place] [facility] [address] [id number] [address]- 9572 Feb, [facility] [place] [facility] [address] [id number] [place] [address]- 3450 Feb, [facility] [place] [facility] [address] [id number] [place] [address]- 4668 Feb, [facility] [place] [facility] [address] [id number] [place] [address]- 9193 Jan, [facility] [place] [facility] [address] [id number] [place] [address]- 7093 08 Jan, 2014 [facility] [place] [facility] [address] [id number] [place] [address]- 8428 Jan, [facility] [place] [facility] [address] [id number] [place] [address]- 6269 Jan, [facility] [place] [facility] [address] [id number] [place] [address]- 3724 Jan, [facility] [place] [facility] [address] [id number] [place] [address]- 2290 Dec, [facility] [place] [facility] [address] [id number] [place] [address]- 0869 Dec, [facility] [place] [facility] [address] [id number] [place] [address]- 0629 Dec, [facility] [place] [facility] [address] [id number] [place] [address]- 9229 Dec, [facility] [place] [facility] [address] [id number] [place] [address]- 2162 Nov, [facility] [place] [facility] [address] [id number] [place] [address]- 2871 Nov, [facility] [place] [facility] [address] [id number] [place] [address]- 6572 Nov, [facility] [place] [facility] [address] [id number] [place] [address]- 6840 Nov, [facility] [place] [facility] [address] [id number] [place] [address] 2543 Nov, [facility] [place] [facility] [address] [id number] [place] [address]- 3813 Nov, [facility] [place] [facility] [address] [id number] [place] [address]- 6536 Nov, [facility] [place] [facility] [address] [id number] [place] [address]- 8229 Nov, [facility] [place] [facility] [address] [id number] [place] [address]- 1429 Nov, [facility] [place] [facility] [address] [id number] [place] [address]- 7033 Nov, [facility] [place] [facility] [address] [id number] [place] [address]- 2578 Oct, [facility] [place] [facility] [address] [id number] [place] [address]- 2089 Oct, [facility] [place] [facility] [address] [id number] [place] [address]- 8050 September, [facility] [place] [facility] [address] [id number] [place] [address]- 6132 September, [facility] [place] [facility] [address] [id number] [place] [address]- 2603 September, [facility] [place] [facility] [address] [id number] [place] [address]- 5184 September, [facility] [place] [facility] [address] [id number] [place] [address]- 8310 Aug, [facility] [place] [facility] [address] [id number] [place] [address]- 6905 Aug, [facility] [place] [facility] [address] [id number] [place] [address]- 7454 Aug, [facility] [place] [facility] [address] [id number] [place] [address]- 3720 24 Jul, 2013 [facility] [place] [facility] [address] [id number] [place] [address]- 0999 24 Jul, 2013 [facility] [place] [facility] [address] [id number] [place] [address]- 1360 14 Jul, 2013 [facility] [place] [facility] [address] [id number] [place] [address]- 5683 14 Jul, 2013 [facility] [place] [facility] [address] [id number] [place] [address]- 4636 20 May, 2013 [facility] [place] [facility] [address] [id number] [place] [address]- 9579 May, [facility] [place] [facility] [address] [id number] [place] [address]- 9887 17 May, 2013 [facility] [place] [facility] [address] [id number] [place] [address]- 2067 15 Mar, 2013 [facility] [place] [facility] [address] [id number] [place] [address]- 0515 15 Mar, 2013 [facility] [place] [facility] [address] [id number] [place] [address]- 0614 Mar, [facility] [place] [facility] [address] [id number] [place] [address]- 6624 Mar, [facility] [place] [facility] [address] [id number] [address]- 7028 16 Feb, 2013 [facility] [place] [facility] [address] [id number] [address]- 2357 16 Feb, 2013 [facility] [place] [facility] [address] [id number] [place] [address]- 1358 04 Feb, 2013 [facility] [place] [facility] [address] [id number] [place] [address]- 2705 16 Jan, 2013 [facility] [place] [facility] [address] [id number] [place] [address]- 1362 12 Jan, 2013 [facility] [place] [facility] [address] [id number] [place] [address]- 3310 Jan, [facility] [address] [id number] [place] [address]- 2649 Dec, [facility] [place] [facility] [address] [id number] [place] [address]- 1017 Dec, [facility] [address] [id number] [place] [address]- 8496 Dec, [facility] [place] [facility] [address] [id number] [place] [address]- 2161 Dec, [facility] [address] [id number] [place] [address]- 2449 Nov, [facility] [address] [id number] [place] [address]- 3650 Oct, [facility] [address] [id number] [place] [address]- 5589 Oct, [facility] [address] [id number] [place] [address]- 9031 September, [facility] [address] [id number] [place] [address]- 7682 September, [facility] [address] [id number] [place] [address]- 8289 September, [facility] [address] [id number] [place] [address]- 2192 Aug, [facility] [place] [facility] [address] [id number] [place] [address]- 7627 Aug, [facility] [place] [facility] [address] [id number] [place] [address]- 2968 Aug, [facility] [place] [facility] [address] [id number] [place] [address]- 2068 Aug, [facility] [address] [id number] [place] [address]- 1351 Jul, [facility] [place] [facility] [address] [id number] [place] [address]- 8441 Jul, [facility] [place] [facility] [address] [id number] [place] [address]- 1646 21 Jul, 2012 [facility] [place] [facility] [address] [id number] [place] [address]- 0472 15 Jul, 2012 [facility] [place] [facility] [address] [id number] [place] [address]- 9741 14 Jul, 2012 [facility] [place] [facility] [address] [id number] [place] [address]- 1107 13 Jul, 2012 [facility] [place] [facility] [address] [id number] [place] [address]- 5989 Jul, [facility] [place] [facility] [address] [id number] [place] [address]- 0608 Jun, [facility] [place] [facility] [address] [id number] [place] [address]- 1862 Jun, [facility] [place] [facility] [address] [id number] [place] [address]- 4279 Jun, [facility] [place] [facility] [address] [id number] [place] [address]- 2050 Jun, [facility] [place] [facility] [address] [id number] [place] [address]- 8721 May, [facility] [place] [facility] [address] [id number] [place] [address]- 8592 May, [facility] [place] [facility] [address] [id number] [place] [address] 2541 May, [facility] [place] [facility] [address] [id number] [place] [address] 254 May, [facility] [place] [facility] [address] [id number] [place] [address]- 0917 May, [facility] [place] [facility] [address] [id number] [place] [address]- 9472 Apr, [facility] [place] [facility] [address] [id number] [place] [address]- 6844 Apr, [facility] [place] [facility] [address] [facility] [id number] [place] [address]- 1922 Mar, [facility] [place] [facility] [address] [facility] [id number] [place] [address]- 0828 Mar, [facility] [place] [facility] [address] [id number] [place] [address]- 0569 Mar, [facility] [place] [facility] [address] [facility] [id number] [place] [address], [place] [address]- 3045 Mar, [facility] [place] [facility] [address] [facility] [id number] [place] [address]- 0352 Mar, [facility] [place] [facility] [id number] [address]- 5607 Mar, [facility] [place] [facility] [address] [facility] [id number] [place] [address]- 6760 Mar, [facility] [place] [facility] [address] [id number] [place] [address]- 3937 Mar, [facility] [place] [facility] [address] [id number] [address]- 7920 Mar, [facility] [place] [facility] [address] [facility] [id number] [place] [address]- 0621 Mar, [facility] [place] [facility] [address] [facility] [id number] [place] [address]- 5330 Feb, [facility] [place] [facility] [address] [id number] [place] [address]- 5612 Feb, [facility] [place] [facility] [address] [facility] [id number] [address]- 8123 Feb, [facility] [place] [facility] [address] [id number] [address]- 4027 Feb, [facility] [place] [facility] [address] [id number] [place] [address]- 6228 08 Feb, 2012 [facility] [place] [facility] [address] [id number] [place] [address]- 1613 Feb, [facility] [place] [facility] [address] [id number] [place] [address]- 1596 Feb, [facility] [place] [facility] [address] [id number] [place] [address]- 4412 Jan, [facility] [place] [facility] [address] [id number] [place] [address]- 3079 Jan, [facility] [place] [facility] [address] [id number] [place] [address]- 7069 Dec, [facility] [place] [facility] [address] [id number] [place] [address]- 6357 Dec, [facility] [place] [facility] [address] [id number] [place] [address]- 1035 Dec, [facility] [place] [facility] [address] [id number] [place] [address]- 8560 Dec, [facility] [place] [facility] [address] [id number] [place] [address]- 3893 Dec, [facility] [place] [facility] [address] [id number] [place] [address]- 6366 Dec, [facility] [place] [facility] [address] [id number] [place] [address]- 9165 Nov, [facility] [place] [facility] [address] [id number] [place] [address]- 4417 Nov, [facility] [place] [facility] [address] [id number] [place] [address]- 8246 Nov, [facility] [place] [facility] [address] [id number] [place] [address]- 6509 Nov, [facility] [place] [facility] [address] [id number] [place] [address]- 8601 September, [facility] [address] [id number] 8103 September, [facility] [id number] [address] September, [facility] [id number] [address] Jul, [facility] [id number] [address] Jun, [facility] [id number] [address] Jun, [facility] [id number] [place] [address] Jun, [facility] [id number] [address] Apr, [facility] [id number] [address] Mar, [facility] [id number] [address] Mar, [facility] [id number] [address] Feb, [facility] [id number] [address] Feb, [facility] [id number] [address] Feb, [facility] [id number] [address] Jul, [facility] [id number] [address] Feb, IMMUNIZATIONS No Known Immunizations SOCIAL HISTORY Never Assessed REASON FOR VISIT BH f/u PLAN OF CARE Activity Details Follow Up Next available Reason:BH F/U VITAL SIGNS MEDICATIONS Unknown Medications RESULTS No Results PROCEDURES Procedure Date Ordered Result Body Site Psychotherapy, patient &/family, 45 minutes, established patient Jan 11, 2018 INSTRUCTIONS MEDICATIONS ADMINISTERED No Known Medications MEDICAL (GENERAL) HISTORY Type Description Date Medical History type II diabetes-dx'd 12/2010 Medical History dysfunctional uterine bleeding--endometrial bx 12/2010 Medical History asthma Medical History hypertension Medical History obesity Medical History anxiety Medical History autoimmune disease Surgical History x1 Hospitalization History child Hospitalization History Asthma
--- OUTSIDE RECORDS SUMMARY | 2018-05-09 22:45 | XMS REPORT ---
Author Author MACY TAMAYO Organization [facility] Address [address] [place] [address] Care Team Providers Care Golf Caddie Name Role Phone MACY TAMAYO Unavailable PROBLEMS Type Condition ICD9-CM Code HOP18-FG Code Onset Dates Condition Status SNOMED Code Problem Lumbago with sciatica, left side M54.42 Active 856596444 Problem Tachycardia with heart rate 121-140 beats per minute R00.0 Active 4189139 Problem Controlled type 2 diabetes mellitus without complication, without long -term current use of insulin E11.9 Active 859802658 Problem Gait disturbance R26.9 Active 52603080 Problem Lumbago with sciatica, right side M54.41 Active 018005824 Problem Enlarged thyroid gland E04.9 Active 8017468 Problem Body mass index (BMI) of 45.0-49.9 in adult Z68.42 Active 910925466 Problem Morbid (severe) obesity due to excess calories E66.01 Active 566460975 Problem Dermatomyositis M33.90 Active 501304785 Problem Mood disorder F39 Active 83011059 Problem Diabetes type 2, controlled E11.9 Active 56780737 Problem Menopause Z78.0 Active 720731389 Problem Allergic rhinitis due to pollen J30.1 Active 22911708 Problem Other chronic pain G89.29 Active 74486934 Problem Arthritis M19.90 Active 2375499 Problem Osteoarthritis of right knee, unspecified osteoarthritis type M17.9 Active 674464806 Problem Plantar warts B07.0 Active 36012342 Problem Anxiety F41.9 Active 17613441 Problem Plantar wart of both feet B07.0 Active [id number] ALLERGIES No Information ENCOUNTERS Encounter Location Date Diagnosis [facility] [address] [facility] [id number] [address] Mar, [facility] [address] [facility] [id number] [address] Feb, [facility] [address] [address] 0[address] Feb, [facility] [address] [place] [id number] [place] [address] 46615- 7666 28 Jan, 2018 [facility] [id number] [place] [address] 95174- 3835 27 Jan, 2018 [facility] [id number] [place] [address] 15702- 8292 17 Jan, 2018 [facility] [id number] [place] [address] 88283- 1370 14 Jan, 2018 Mood disorder F39 [place] [id number] [place] [address] 99871- 9701 11 Jan, 2018 Dermatomyositis M33.90 and BMI 40.0-44.9, adult Z68.41 [place] [address] [place] [id number] [place] [address] 55331- 1336 10 Jan, 2018 [facility] [id number] [place] [address] 18989- 1504 05 Jan, 2018 [place] [id number] [place] [address] 60362- 4704 04 Jan, 2018 Irritation of left eye H57.8 and BMI 40.0-44.9, adult Z68.41 [place] [address] [id number] [place] [address] 58006- 4266 Dec, Diabetes type 2, controlled E11.9 [facility] [id number] [place] [address] 47411- 6379 Dec, Acute right ankle pain M25.571 [place] [id number] [place] [address] 05457- 2368 Dec, Other chronic pain G89.29 ; Diabetes type 2, controlled E11.9 ; Gait disturbance R26.9 ; Weakness R53.1 and Muscle spasm M62.838 [place] [id number] [place] [address] 84443- 6644 Dec, Acute non-recurrent maxillary sinusitis J01.00 [facility] [id number] [place] [address] 53819- 1600 Dec, [facility] [id number] [place] [address] 90352- 2740 Dec, [facility] [id number] [place] [address] 88159- 2737 Dec, Acute non-recurrent maxillary sinusitis J01.00 [facility] [address] [place] [id number] [place] [address] 41839- 3778 Dec, Lumbago with sciatica, right side M54.41 and Lupus erythematosus L93.0 [facility] [id number] [place] [address] 91691- 1581 Dec, Mood disorder F39 [facility] [id number] [place] [address] 61919- 7517 Dec, Mood disorder F39 [facility] [id number] [place] [address] 26916- 5113 Dec, [facility] [id number] [place] [address] 47397- 9701 Dec, Acute right ankle pain M25.571 [facility] [id number] [place] [address] 75300- 6793 Nov, Lumbar radiculopathy M54.16 [facility] [id number] [place] [address] 02525- 1107 Nov, [facility] [id number] [place] [address] 01779- 2561 Nov, Mood disorder F39 [facility] [id number] [place] [address] 69699- 7320 Nov, Lumbago with sciatica, right side M54.41 and Other chronic pain G89.29 [facility] [id number] [place] [address] 00534- 9144 Nov, Acute right ankle pain M25.571 [facility] [id number] [place] [address] 95140- 5886 Nov, [facility] [id number] [place] [address] 20975- 1006 Oct, [facility] [id number] [place] [address] 27539- 6426 Oct, Plantar wart of both feet B07.0 [facility] [id number] [place] [address] 21179- 2446 Oct, [facility] [id number] [place] [address] 31117- 5191 Oct, Acute right ankle pain M25.571 and Plantar wart of both feet B07.0 [facility] [id number] [place] [address] 55144- 3371 September, Other chronic pain G89.29 [facility] [id number] [place] [address] 64512- 6232 September, Other chronic pain G89.29 [facility] [id number] [place] [address] 89468- 7586 September, Other chronic pain G89.29 [facility] [id number] [place] [address] 43179- 8545 Aug, Mood disorder F39 [facility] [id number] [place] [address] 90824- 9752 Aug, Other chronic pain G89.29 ; Controlled type 2 diabetes mellitus without complication, without long-term current use of insulin E11.9 ; Low back pain M54.5 and Tinea corporis B35.4 [facility] [id number] [place] [address] 71207- 4712 Aug, Mood disorder F39 and Anxiety F41.9 [place] [id number] [place] [address] 92134- 9141 Aug, Mood disorder F39 and Anxiety F41.9 [place] [id number] [place] [address] 01145- 2503 Jul, [facility] [address] 25872 -8082 Jul, Scabies B86 and BMI 45.0-49.9, adult Z68.42 [place] [address] 29573- 5405 Jul, [place] [address] 13844- 8154 Jul, Mood disorder F39 and Anxiety F41.9 [place] [address] 27089- 5084 Jul, [facility] [place] [address] 70889 -4729 27 Jun, 2017 Bronchitis J40 ; Dark urine R82.99 and BMI 45.0-49.9, adult Z68.42 [place] [id number] [place] [address] 29079- 3986 14 Jun, 2017 Acute pain of right shoulder M25.511 and Acute pain of right knee M25.561 [place] [address] 85762- 7249 May, BMI 40.0-44.9, adult Z68.41 ; Controlled type 2 diabetes mellitus without complication, without long-term current use of insulin E11.9 ; Muscle cramping R25.2 ; Hot flashes R23.2 ; Mood disorder F39 ; Anxiety F41.9 and Morbid (severe) obesity due to excess calories E66.01 [place] [id number] [place] [address] 29783- 2927 May, BMI 40.0-44.9, adult Z68.41 ; Controlled type 2 diabetes mellitus without complication, without long-term current use of insulin E11.9 ; Muscle cramping R25.2 and Hot flashes R23.2 [place] [id number] [place] [address] 26563- 2904 May, Tachycardia with heart rate 121-140 beats per minute R00.0 ; Morbid (severe) obesity due to excess calories E66.01 ; Diabetes type 2, controlled E11.9 and Enlarged thyroid gland E04.9 [place] [id number] [place] [address] 71832- 4125 May, Encounter for well woman exam with [...] Dysuria R30.0 and Screening breast examination Z12.[address] 35586- 0875 Apr, Mood disorder F39 ; Other chronic pain G89.29 and Anxiety F41.9 [place] [id number] [place] [address] 23172- 1619 Apr, Lumbago with sciatica, left side M54.42 and Other chronic pain G89.29 [place] [id number] [place] [address] 39059- 2858 Apr, Lupus erythematosus L93.0 [place] [address] 55120- 5030 Mar, Plantar wart of both feet B07.0 [place] [address] [id number] [place] [address] 02226- 4090 Mar, Lupus erythematosus L93.0 and Sinus drainage J34.89 [place] [id number] [place] [address] 39590- 5624 Mar, Mood disorder F39 ; Other chronic pain G89.29 and Anxiety F41.9 [place] [address] 95654- 8075 Mar, Mood disorder F39 ; Arthritis M19.90 and Plantar warts B07.0 [facility] [address] 52752- 0218 Feb, Lupus erythematosus L93.0 [facility] [address] 73979- 1519 Feb, Other chronic pain G89.29 [place] [address] 77546- 7096 Feb, Mood disorder F39 and Anxiety F41.9 [place] [address] 15301- 4210 Jan, [facility] [id number] [place] [address] 27501- 0215 Jan, Mood disorder F39 [place] [address] 78244- 2566 Dec, Nail, ingrown L60.0 [place] [address] [id number] [place] [address] 29696- 6960 Dec, Nail, ingrown L60.0 [place] [id number] [place] [address] 16778- 2567 Nov, Mood disorder F39 and Anxiety F41.9 [place] [address] 32736- 4454 Nov, Sinus drainage J34.89 ; Hot flashes R23.2 ; Anxiety F41.9 and Diabetes type 2, controlled E11.9 [facility] [id number] [place] [address] 86972- 4800 Nov, Nail, ingrown L60.0 [facility] [id number] [place] [address] 95102- 8715 Oct, Anxiety F41.9 and Mood disorder F39 [facility] [id number] [place] [address] 67601- 0111 Oct, Nail, ingrown L60.0 and Anxiety F41.9 [facility] [id number] [place] [address] 11297- 4279 Oct, Lupus erythematosus L93.0 [facility] [id number] [place] [address] 90237- 4010 September, [facility] [id number] [place] [address] 99850- 7415 September, [facility] [id number] [place] [address] 33873- 8052 September, Lupus erythematosus L93.0 [facility] [id number] [place] [address] 32836- 8014 Aug, [facility] [id number] [place] [address] 18578- 5387 Aug, Mood disorder F39 and Anxiety F41.9 [facility] [id number] [place] [address] 24356- 1886 Aug, Lupus erythematosus L93.0 ; Diabetes type 2, controlled E11.9 and Localized edema R60.0 [facility] [id number] [place] [address] 69948- 1321 Aug, [facility] [id number] [place] [address] 92224- 2381 Jul, Anxiety F41.9 and Mood disorder F39 [facility] [id number] [place] [address] 89282- 9121 Jul, Diabetes type 2, controlled E11.9 [facility] [id number] [place] [address] 11971- 9868 Jun, Anxiety F41.9 [facility] [id number] [place] [address] 98832- 0751 May, [facility] [id number] [place] [address] 58009- 0873 May, [place] [id number] [place] [address] 39490- 3723 May, Nausea R11.0 ; Other chronic pain G89.29 and Pain in right knee M25.561 [place] [id number] [place] [address] 60591- 9722 May, [place] [address] 85940- 4937 Apr, Tear of medial meniscus of right knee, current, unspecified tear type, subsequent encounter S83.241D and Tear of lateral meniscus of right knee, current, unspecified tear type, subsequent encounter S83.281D [place] [id number] [place] [address] 84855- 4538 Apr, Anxiety F41.9 and Mood disorder F39 [place] [id number] [place] [address] 33022- 2077 Apr, Anxiety F41.9 [place] [id number] [place] [address] 04039- 9543 Apr, [place] [id number] [place] [address] 31515- 1946 Mar, [place] [id number] [place] [address] 38561- 9008 Mar, Lupus erythematosus L93.0 and Diabetes type 2, controlled E11.9 [place] [id number] [place] [address] 49143- 5277 Mar, Mood disorder F39 [place] [id number] [place] [address] 29161- 0337 Mar, Tear of lateral meniscus of right knee, current, unspecified tear type, initial encounter S83.281A and Osteoarthritis of right knee, unspecified osteoarthritis type M17.9 [facility] [id number] [place] [address] 22970 2546 Mar, [facility] [id number] [place] [address] 67983 2546 Feb, Mood disorder F39 [facility] [id number] [place] [address] 07926 2546 Feb, Rash R21 [facility] [id number] [place] [address] 45395 2546 Feb, [facility] [id number] [place] [address] 83160 2546 Jan, Other chronic pain G89.29 and Muscle spasm M62.838 [place] [address] [id number] [place] [address] 91879 2546 Jan, Mood disorder F39 [facility] [id number] [place] [address] 05787 2546 Jan, Pain in right knee M25.561 ; Other chronic pain G89.29 and Muscle spasm M62.838 [facility] [id number] [place] [address] 76462 2546 Dec, [facility] [id number] [place] [address] 53336 2546 Dec, [facility] [id number] [place] [address] 00692 2546 Nov, [facility] [id number] [place] [address] 59773- 1758 Nov, Mood disorder F39 [facility] [id number] [place] [address] 14015- 2547 Nov, Diabetes type 2, controlled E11.9 ; Bronchitis J40 ; Edema, unspecified type R60.9 ; Weight gain R63.5 and Right knee pain, unspecified chronicity M25.561 [facility] [id number] [place] [address] 80706- 4274 Oct, Mood disorder F39 [facility] [id number] [place] [address] 98868- 2767 Oct, Lupus erythematosus L93.0 and Bilateral edema of lower extremity R60.0 [facility] [id number] [place] [address] 15469- 6937 Oct, Mood disorder F39 and Anxiety F41.9 [place] [id number] [place] [address] 32464- 9346 September, Mood disorder F39 ; Anxiety F41.9 and Anger reaction R45.4 [place] [address] [id number] [place] [address] 37276- 8166 September, Diabetes type 2, controlled E11.9 ; Edema, unspecified type R60.9 and Fatigue, unspecified type R53.83 [place] [address] [id number] [place] [address] 01023- 1983 Aug, Mood disorder F39 and Generalized anxiety disorder F41.1 [place] [id number] [place] [address] 98981- 6895 Aug, Diabetes type 2, controlled E11.9 ; Sinusitis J32.9 and Mood disorder F39 [facility] [id number] [place] [address] 48309- 8858 15 Aug, 2015 Lupus erythematosus L93.0 [facility] [id number] [place] [address] 45673- 0803 14 Aug, 2015 [facility] [id number] [place] [address] 31940- 2790 07 Aug, 2015 [facility] [id number] [place] [address] 99006- 2531 Jul, Diabetes type 2, controlled E11.9 [facility] [id number] [place] [address] 19077- 4566 Jul, Mood disorder F39 and Depression F32.9 [facility] [id number] [place] [address] 40436- 3346 Jul, Lupus erythematosus L93.0 and Diabetes type 2, controlled E11.9 [facility] [address] [address]- 5806 Jul, Mood disorder F39 and Anxiety F41.9 [facility] [id number] [address]- 7282 Jul, [facility] [id number] [place] [address] 05935- 0003 Jul, [facility] [id number] [place] [address] 48123- 8553 Jun, Mood disorder F39 and Anxiety F41.9 [facility] [address] [address]- 6892 Jun, Mood disorder F39 [facility] [address] [address]- 3648 Jun, [facility] [address] [address]- 2034 Jun, [facility] [address] [address]- 8988 Jun, Mood disorder F39 [facility] [address] [address]- 8882 Jun, [facility] [address] [address]- 7731 May, [facility] [address] [address]- 0472 May, [facility] [address] [address]- 9312 May, [facility] [id number] [place] [address] 42961- 5071 May, [facility] [id number] [place] [address] 53442- 1323 May, Anxiety F41.9 ; Dermatomyositis M33.90 and Diabetes type 2, controlled E11.9 [facility] [id number] [place] [address] 19890 -4855 May, Sinusitis J32.9 and Cough R05 [facility] [id number] [place] [address] 84854- 1683 May, Mood disorder F39 [facility] [id number] [place] [address] 99942- 9534 May, Adjustment disorder with mixed anxiety and depressed mood F43.23 [facility] [id number] [place] [address] 62704- 0474 Apr, [facility] [id number] [place] [address] 38633- 6569 Apr, [facility] [id number] [place] [address] 71544- 1623 Apr, Generalized anxiety disorder F41.1 and Mood disorder F39 [facility] [id number] [place] [address] 87859- 9408 Mar, [facility] [id number] [place] [address] 58809- 1699 Mar, [facility] [id number] [place] [address] 30631- 9676 Mar, [facility] [id number] [place] [address] 27587- 2455 Mar, Mood disorder F39 [facility] [id number] [place] [address] 88321- 8509 Feb, [facility] [id number] [place] [address] 14842- 2366 Feb, Diabetes E11.9 and Bronchitis J40 [place] [id number] [place] [address] 79653- 4742 Feb, [place] [address] [id number] [place] [address] 53833- 8975 Feb, [place] [address] [id number] [place] [address] 34811- 6439 Feb, Major depression, recurrent, full remission F33.42 and KELLY ( generalized anxiety disorder) F41.1 [place] [id number] [place] [address] 93495- 9078 Feb, [place] [address] 58802- 4656 Feb, Single major depressive episode, in partial or unspecified remission F32.[address] 04686- 5276 Jan, Fatigue 780.79 [place] [address] [place] [id number] [place] [address]- 0019 Jan, [address] [address]- [address] Jan, Diabetes with other specified manifestations, type II or unspecified type, not stated as uncontrolled 250.80 [place] [id number] [place] [address] 05433- 3550 Jan, [place] [address] [place] [id number] [place] [address] 12314- 2210 Dec, Hot flashes 627.2 ; Memory loss 780.93 and Joint pain 719.40 [place] [id number] [place] [address] 62590- 5439 Dec, Major depression, recurrent 296.30 ; Generalized anxiety disorder 300.02 ; Adjustment disorder with depressed mood 309.0 and No condition on [place] V71.[address] [address]- [address] Dec, [place] [id number] [place] [address] 76752- 9093 Nov, Cognitive and neurobehavioral dysfunction 294.9 ; Major depressive disorder, recurrent episode, moderate degree 296.32 and Anxiety state , unspecified 300.00 [place] [id number] [place] [address] 74249- 7842 Nov, [address] [address]- [address] Nov, Bronchitis 490 and Diabetes with other specified manifestations, type II or unspecified type, not stated as uncontrolled 250.[address] [address]- [address] Nov, Major depressive disorder, recurrent episode, moderate 296.32 and Anxiety disorder, unspecified 300.[address] 150[address]- 9669 Nov, Anxiety, generalized 300.02 ; Intermittent explosive disorder 312.34 ; No condition on [place] II V71.09 and No condition on axis III V71.09 [place] [id number] [place] [address] 93125- 7174 Oct, Diabetes with other specified manifestations, type II or unspecified type, not stated as uncontrolled 250.80 ; Urinary tract infection, site not specified 599.0 and Bronchitis [id number] [place] [address] 47649- 4156 Oct, Intermittent explosive disorder 312.34 ; Bipolar 1 disorder , depressed, moderate 296.52 ; Major depression, chronic 296.20 ; No condition on [place] II V71.09 and No condition on axis III V71.09 [id number] [place] [address] 24444- 4239 Oct, Major depressive disorder, recurrent episode, moderate 296.32 ; Anxiety state 300.00 ; Cognitive decline 294.9 and No condition on [place] II V71.[address] [place] [address]- 2714 Oct, [facility] [id number] [place] [address] 95140- 4580 Oct, Major depressive disorder, recurrent episode, moderate 296.32 ; Anxiety disorder, unspecified 300.00 and Persistent disorder of initiating or maintaining sleep 307.42 [facility] [id number] [place] [address] 98280- 2774 September, Diabetes with other specified manifestations, type II or unspecified type, not stated as uncontrolled 250.80 ; Memory loss 780.93 and Cognitive complaints 799.59 [facility] [id number] [place] [address] 251660- 1110 September, No condition on [place] II V71.09 ; Major depression, recurrent 296.30 and Persistent mood [affective] disorder, unspecified 296.90 [facility] [id number] [place] [address] 04104- 0290 Aug, [facility] [id number] [place] [address] 44013- 6550 Aug, [facility] [id number] [place] [address] 44386- 4616 Aug, [facility] [id number] [place] [address] [id number] 8090 Jul, [facility] [id number] [place] [address] 54576- 9314 Jul, [facility] [id number] [place] [address] 10841- 7026 Jul, [facility] [id number] [place] [address] 63975- 7037 Jul, [facility] [id number] [place] [address] 04190- 3436 Jul, [facility] [id number] [place] [address] 71504- 4266 Jun, [facility] [place] [facility] [address] [id number] [place] [address]- 0214 Jun, 2014 [facility] [place] [facility] [address] [id number] [place] [address]- 6025 Jun, 2014 [facility] [place] [facility] [address] [id number] [place] [address]- 8267 Jun, 2014 [facility] [place] [facility] [address] [id number] [place] [address]- 7111 Jun, 2014 [facility] [place] [facility] [address] [id number] [place] [address]- 9176 Jun, 2014 [facility] [place] [facility] [address] [id number] [place] [address]- 9715 Jun, 2014 [facility] [place] [facility] [address] [facility] [id number] [place] [address]- 2036 Jun, 2014 [facility] [place] [facility] [address] [id number] [place] [address]- 0126 Jun, 2014 [facility] [place] [facility] [address] [facility] [id number] [place] [address]- 8760 Jun, 2014 [facility] [place] [facility] [address] [facility] [id number] [place] [address]- 4411 Jun, 2014 [facility] [place] [facility] [address] [facility] [id number] [place] [address]- 7770 Jun, 2014 [facility] [place] [facility] [address] [id number] [address]- 7363 Jun, 2014 [facility] [place] [facility] [address] [facility] [id number] [place] [address]- 6438 May, [facility] [place] [facility] [address] [facility] [id number] [place] [address]- 4719 May, [facility] [place] [facility] [address] [facility] [id number] [place] [address]- 2153 Apr, [facility] [place] [facility] [address] [id number] [place] [address]- 1995 Apr, [facility] [place] [facility] [address] [id number] [place] [address]- 2316 Apr, [facility] [place] [facility] [address] [id number] [place] [address]- 5456 Apr, [facility] [place] [facility] [address] [id number] [place] [address]- 7456 Apr, [facility] [place] [facility] [address] [id number] [place] [address]- 6598 Apr, [facility] [place] [facility] [address] [id number] [place] [address]- 7454 Apr, [facility] [place] [facility] [address] [id number] [place] [address]- 4404 Apr, [facility] [place] [facility] [address] [id number] [place] [address]- 2371 Apr, [facility] [place] [facility] [address] [id number] [place] [address]- 9690 Apr, [facility] [place] [facility] [address] [id number] [place] [address]- 4207 Apr, [facility] [place] [facility] [address] [id number] [place] [address]- 3982 Apr, [facility] [place] [facility] [address] [id number] [place] [address]- 6193 Apr, [facility] [place] [facility] [address] [id number] [place] [address]- 4499 Apr, [facility] [place] [facility] [address] [id number] [place] [address]- 1325 Apr, [facility] [place] [facility] [address] [id number] [place] [address]- 1593 Apr, [facility] [place] [facility] [address] [id number] [place] [address]- 5881 Apr, [facility] [place] [facility] [address] [id number] [place] [address]- 6053 Apr, [facility] [place] [facility] [address] [id number] [place] [address]- 5057 Apr, [facility] [place] [facility] [address] [id number] [place] [address]- 9759 Apr, [facility] [place] [facility] [address] [id number] [place] [address]- 9622 Mar, [facility] [place] [facility] [address] [id number] [place] [address]- 3338 Mar, [facility] [place] [facility] [address] [id number] [place] [address]- 0223 Mar, [facility] [place] [facility] [address] [id number] [place] [address]- 4541 Mar, [facility] [place] [facility] [address] [id number] [place] [address]- 4690 Mar, [facility] [place] [facility] [address] [id number] [place] [address]- 2620 Mar, [facility] [place] [facility] [address] [id number] [place] [address]- 6754 Mar, [facility] [place] [facility] [address] [id number] [place] [address]- 1934 Mar, [facility] [place] [facility] [address] [id number] [place] [address]- 9997 Mar, [facility] [place] [facility] [address] [id number] [place] [address]- 0606 Mar, [facility] [place] [facility] [address] [id number] [place] [address]- 5044 Mar, [facility] [place] [facility] [address] [id number] [place] [address]- 1742 Mar, [facility] [place] [facility] [address] [id number] [address]- 7433 Mar, [facility] [place] [facility] [address] [id number] [place] [address]- 2135 Feb, [facility] [place] [facility] [address] [id number] [place] 3117 Feb, [facility] [place] [facility] [address] [id number] [place] [address]- 2502 Feb, [facility] [place] [facility] [address] [id number] [place] [address]- 2117 Feb, [facility] [place] [facility] [address] [id number] [place] [address]- 8624 Feb, [facility] [place] [facility] [address] [id number] [place] [address]- 8186 Feb, [facility] [place] [facility] [address] [id number] [place] [address]- 4600 Feb, [facility] [place] [facility] [address] [id number] [place] [address]- 7506 Feb, [facility] [place] [facility] [address] [id number] [place] [address]- 9852 Feb, [facility] [place] [facility] [address] [id number] [address]- 1315 Feb, [facility] [place] [facility] [address] [id number] [place] [address]- 8309 Feb, [facility] [place] [facility] [address] [id number] [place] [address]- 6995 10 Feb, 2014 [facility] [place] [facility] [address] [id number] [place] [address]- 2182 10 Feb, 2014 [facility] [place] [facility] [address] [id number] [place] [address]- 1701 Feb, [facility] [place] [facility] [address] [id number] [place] [address]- 1470 Feb, [facility] [place] [facility] [address] [id number] [place] [address]- 2838 10 Jan, 2013 [facility] [place] [facility] [address] [id number] [place] [address]- 8369 08 Jan, 2013 [facility] [place] [facility] [address] [id number] [place] [address]- 1995 Jan, 2013 [facility] [place] [facility] [address] [id number] [place] [address]- 4172 Jan, 2013 [facility] [place] [facility] [address] [id number] [place] [address]- 1452 Jan, 2013 [facility] [place] [facility] [address] [id number] [place] [address]- 5546 Dec, [facility] [place] [facility] [address] [id number] [place] [address]- 6503 Dec, [facility] [place] [facility] [address] [id number] [place] [address]- 0551 Dec, [facility] [place] [facility] [address] [id number] [place] [address]- 3132 Dec, [facility] [place] [facility] [address] [id number] [place] [address]- 6834 Nov, [facility] [place] [facility] [address] [id number] [place] [address]- 9637 Nov, [facility] [place] [facility] [address] [id number] [place] [address]- 3044 Nov, [facility] [place] [facility] [address] [id number] [place] [address]- 6743 Nov, [facility] [place] [facility] [address] [id number] [place] [address]- 9355 Nov, [facility] [place] [facility] [address] [id number] [place] [address]- 1033 Nov, [facility] [place] [facility] [address] [id number] [place] [address]- 2204 Nov, [facility] [place] [facility] [address] [id number] [place] [address]- 7916 Nov, [facility] [place] [facility] [address] [id number] [place] [address]- 0941 Nov, [facility] [place] [facility] [address] [id number] [place] [address]- 2366 Nov, [facility] [place] [facility] [address] [id number] [place] [address]- 2305 Oct, [facility] [place] [facility] [address] [id number] [place] [address]- 8281 Oct, [facility] [place] [facility] [address] [id number] [place] [address]- 2524 September, [facility] [place] [facility] [address] [id number] [place] [address]- 8338 September, [facility] [place] [facility] [address] [id number] [place] [address]- 2999 September, [facility] [place] [facility] [address] [id number] [place] [address]- 5160 September, [facility] [place] [facility] [address] [id number] [place] [address]- 8889 Aug, [facility] [place] [facility] [address] [id number] [place] [address]- 8125 Aug, [facility] [place] [facility] [address] [id number] [place] [address]- 2661 Aug, [facility] [place] [facility] [address] [id number] [place] [address]- 3770 Jul, [facility] [place] [facility] [address] [id number] [place] [address]- 9015 Jul, [facility] [place] [facility] [address] [id number] [place] [address]- 5991 Jul, [facility] [place] [facility] [address] [id number] [place] [address]- 4518 Jul, [facility] [place] [facility] [address] [id number] [place] [address]- 2320 May, [facility] [place] [facility] [address] [id number] [place] [address]- 1431 May, [facility] [place] [facility] [address] [id number] [place] [address]- 2569 May, [facility] [place] [facility] [address] [id number] [place] [address]- 6960 15 Mar, 2013 [facility] [place] [facility] [address] [id number] [place] [address]- 9323 15 Mar, 2013 [facility] [place] [facility] [address] [id number] [place] [address]- 0602 Mar, [facility] [place] [facility] [address] [id number] [place] [address]- 8570 Mar, [facility] [place] [facility] [address] [id number] [place] [address]- 6622 Feb, [facility] [place] [facility] [address] [id number] [place] [address]- 7957 Feb, [facility] [place] [facility] [address] [id number] [place] [address]- 1336 Feb, [facility] [place] [facility] [address] [id number] [place] [address]- 4421 16 Jan, 2013 [facility] [place] [facility] [address] [id number] [place] [address]- 9560 12 Jan, 2013 [facility] [place] [facility] [address] [id number] [place] [address]- 4543 09 Jan, 2013 [facility] [place] [facility] [address] [id number] [place] [address]- 6075 Dec, [facility] [place] [facility] [address] [id number] [place] [address]- 6062 Dec, [facility] [place] [facility] [address] [id number] [place] [address]- 0389 Dec, [facility] [address] [id number] [place] [address]- 6263 Dec, [facility] [place] [facility] [address] [id number] [place] [address]- 3888 Nov, [facility] [place] [facility] [address] [id number] [place] [address]- 3434 Oct, [facility] [place] [facility] [address] [id number] [place] [address]- 6262 Oct, [facility] [place] [facility] [address] [id number] [place] [address]- 9518 September, [facility] [address] [id number] [place] [address]- 8247 September, [facility] [address] [id number] [place] [address]- 8795 September, [facility] [address] [id number] [place] [address]- 8977 Aug, [facility] [address] [id number] [place] [address]- 5623 Aug, [facility] [address] [id number] [place] [address]- 8193 Aug, [facility] [place] [facility] [address] [id number] [place] [address]- 0174 Aug, [facility] [place] [facility] [address] [id number] [place] [address]- 2515 Jul, [facility] [place] [facility] [address] [id number] [place] [address]- 2690 Jul, [facility] [place] [facility] [address] [id number] [place] [address]- 7663 Jul, [facility] [place] [facility] [address] [id number] [place] [address]- 7517 15 Jul, 2012 [facility] [address] [id number] [place] [address]- 8362 14 Jul, 2012 [facility] [place] [facility] [address] [id number] [place] [address]- 2174 13 Jul, 2012 [facility] [address] [id number] [place] [address]- 1896 13 Jul, 2012 [facility] [place] [facility] [address] [id number] [place] [address]- 2993 06 Jun, 2012 [facility] [place] [facility] [address] [id number] [place] [address]- 6742 Jun, [facility] [place] [facility] [address] [id number] [place] [address]- 1628 Jun, [facility] [address] [id number] [place] [address]- 2439 Jun, [facility] [place] [facility] [address] [id number] [place] [address]- 9778 May, [facility] [address] [id number] [place] [address]- 3421 May, [facility] [place] [facility] [address] [id number] [place] [address]- 4225 May, [facility] [address] [id number] [place] [address]- 4949 May, [facility] [place] [facility] [address] [id number] [place] [address]- 2558 May, [facility] [place] [facility] [address] [id number] [place] [address]- 4517 Apr, [facility] [place] [facility] [address] [id number] [place] 5896 Apr, [facility] [place] [facility] [address] [id number] [place] [address]- 1350 Mar, [facility] [place] [facility] [address] [id number] [place] [address]- 0993 Mar, [facility] [place] [facility] [address] [id number] [place] [address]- 2890 Mar, [facility] [place] [facility] [address] [id number] [place] [address]- 2175 Mar, [facility] [place] [facility] [address] [id number] [place] [address]- 2554 Mar, [facility] [place] [facility] [address] [id number] [place] [address]- 0510 Mar, [facility] [place] [facility] [address] [id number] [place] [address]- 9018 Mar, [facility] [place] [facility] [address] [id number] [place] [address]- 3848 Mar, [facility] [place] [facility] [address] [id number] [place] [address]- 0298 Mar, [facility] [place] [facility] [address] [id number] [place] [address]- 2086 Mar, [facility] [place] [facility] [address] [id number] [place] [address]- 6830 Feb, [facility] [place] [facility] [address] [id number] [place] [address]- 3625 Feb, [facility] [place] [facility] [address] [id number] [place] [address]- 4222 Feb, [facility] [place] [facility] [address] [id number] [place] [address]- 3596 Feb, [facility] [place] [facility] [address] [id number] [place] [address]- 8564 Feb, [facility] [place] [facility] [address] [id number] [place] [address]- 4537 Feb, [facility] [place] [facility] [address] [id number] [place] [address]- 3685 Feb, [facility] [place] [facility] [address] [id number] [place] [address]- 6483 Jan, [facility] [place] [facility] [address] [id number] [place] [address]- 1013 Jan, [facility] [place] [facility] [address] [id number] [place] [address]- 8324 Dec, [facility] [place] [facility] [address] [id number] [place] [address]- 0224 Dec, [facility] [place] [facility] [address] [id number] [place] [address]- 6347 Dec, [facility] [place] [facility] [address] [id number] [place] [address]- 6237 Dec, [facility] [place] [facility] [address] [id number] [place] [address]- 8374 Dec, [facility] [place] [facility] [address] [id number] [place] [address]- 8491 Dec, [facility] [place] [facility] [address] [id number] [place] [address]- 2184 Nov, [facility] [place] [facility] [address] [id number] [place] [address]- 1047 Nov, [facility] [place] [facility] [address] [id number] [place] [address]- 0844 Nov, [facility] [place] [facility] [address] [id number] [place] [address]- 2741 Nov, [facility] [place] [facility] [address] [id number] [place] [address]- 0432 September, [facility] [place] [facility] [address] [id number] [place] [address]- 9977 September, [facility] [place] [facility] [address] [id number] [place] [address]- 5468 September, [facility] [place] [facility] [address] [id number] [address] 28 Jul, 2011 [facility] [id number] [address] 29 Jun, 2011 [facility] [id number] [address] 20 Jun, 2011 [facility] [id number] [address] 13 Jun, 2011 [facility] [id number] [address] 14 Apr, 2011 [facility] [id number] [place] [address] Mar, [facility] [id number] [address] Mar, [facility] [id number] [place] [id number] Feb, [facility] [id number] [address] Feb, [facility] [id number] [address] Feb, [facility] [id number] [address] Jul, [facility] [id number] [address] Feb, IMMUNIZATIONS No Known Immunizations SOCIAL HISTORY Never Assessed REASON FOR VISIT disability letter PLAN OF CARE VITAL SIGNS MEDICATIONS Unknown [...]
--- OUTSIDE RECORDS SUMMARY | 2018-05-09 22:45 | XMS REPORT ---
Author Author SUNNY WONG [facility] Address [address] [place] [address] Care Team Providers Care Cargo Vessel Stewardess Name Role Phone SUNNY WONG Unavailable PROBLEMS Type Condition ICD9-CM Code UGP22-EQ Code Onset Dates Condition Status SNOMED Code Problem Controlled type 2 diabetes mellitus without complication, without long -term current use of insulin E11.9 Active 511778049 Problem Body mass index (BMI) of 45.0-49.9 in adult Z68.42 Active 583238668 Problem Tachycardia with heart rate 121-140 beats per minute R00.0 Active 9417284 Problem Facial droop R29.810 Active 10453594 Problem Menopause Z78.0 Active 989899649 Problem Gait disturbance R26.9 Active 50563420 Problem Dermatomyositis M33.90 Active 235167841 Problem Enlarged thyroid gland E04.9 Active 3516762 Problem Lumbago with sciatica, right side M54.41 Active 974763605 Problem Morbid (severe) obesity due to excess calories E66.01 Active 950386683 Problem Diabetes type 2, controlled E11.9 Active 67315156 Problem Osteoarthritis of right knee, unspecified osteoarthritis type M17.9 Active 290967058 Problem Allergic rhinitis due to pollen J30.1 Active 65873507 Problem Mood disorder F39 Active 35905529 Problem Arthritis M19.90 Active 5732338 Problem Plantar warts B07.0 Active 43756237 Problem Anxiety F41.9 Active 83180084 Problem Plantar wart of both feet B07.0 Active [id number] Problem Other chronic pain G89.29 Active 84769826 Problem Lumbago with sciatica, left side M54.42 Active 400531661 ALLERGIES No Information ENCOUNTERS Encounter Location Date Diagnosis [facility] [address] [facility] [id number] [address] Mar, [facility] [id number] [place] [address] 46797- 9086 Feb, [facility] [id number] [place] [address] 46009- 0167 Feb, [facility] [id number] [place] [address] 72203- 9781 28 Jan, 2018 [facility] [address] 31790- 1012 27 Jan, 2018 [facility] [address] 18239- 6875 17 Jan, 2018 BMI 45.0-49.9, adult Z68.42 and Facial droop R29.810 [place] [id number] [place] [address] 67201- 5980 14 Jan, 2018 Mood disorder F39 [place] [address] 94418- 7044 11 Jan, 2018 Dermatomyositis M33.90 and BMI 40.0-44.9, adult Z68.41 [place] [id number] [place] [address] 23958- 9666 10 Jan, 2018 [facility] [id number] [place] [address] 00706- 8496 05 Jan, 2018 [place] [id number] [place] [address] 27274- 8033 04 Jan, 2018 Irritation of left eye H57.8 and BMI 40.0-44.9, adult Z68.41 [place] [id number] [place] [address] 24238- 5749 Dec, Diabetes type 2, controlled E11.9 [facility] [id number] [place] [address] 19018- 0786 Dec, Acute right ankle pain M25.571 [place] [id number] [place] [address] 75625- 8753 Dec, Other chronic pain G89.29 ; Diabetes type 2, controlled E11.9 ; Gait disturbance R26.9 ; Weakness R53.1 and Muscle spasm M62.838 [facility] [id number] [place] [address] 83353- 9789 Dec, Acute non-recurrent maxillary sinusitis J01.00 [facility] [id number] [place] [address] 07705- 7140 Dec, [facility] [id number] [place] [address] 05236- 7055 Dec, [facility] [id number] [place] [address] 39579- 2307 Dec, Acute non-recurrent maxillary sinusitis J01.00 [facility] [id number] [place] [address] 43622- 3441 Dec, Lumbago with sciatica, right side M54.41 and Lupus erythematosus L93.0 [facility] [id number] [place] [address] 38572- 8222 Dec, Mood disorder F39 [facility] [id number] [place] [address] 69268- 4202 Dec, Mood disorder F39 [facility] [id number] [place] [address] 21688- 6358 Dec, [facility] [id number] [place] [address] 87307- 0489 Dec, Acute right ankle pain M25.571 [facility] [id number] [place] [address] 04243- 5232 Nov, Lumbar radiculopathy M54.16 [facility] [id number] [place] [address] 38271- 9376 Nov, [facility] [id number] [place] [address] 01245- 7822 Nov, Mood disorder F39 [facility] [id number] [place] [address] 51362- 2951 Nov, Lumbago with sciatica, right side M54.41 and Other chronic pain G89.29 [facility] [id number] [place] [address] 82142- 1836 Nov, Acute right ankle pain M25.571 [facility] [id number] [place] [address] 51500- 6723 Nov, [facility] [id number] [place] [address] 91404- 4654 Oct, [place] [id number] [place] [address] 72091- 4935 Oct, Plantar wart of both feet B07.0 [place] [id number] [place] [address] 54347- 0131 Oct, [place] [id number] [place] [address] 99018- 8896 Oct, Acute right ankle pain M25.571 and Plantar wart of both feet B07.0 [place] [id number] [place] [address] 71042- 4385 September, Other chronic pain G89.29 [place] [id number] [place] [address] 56746- 3337 September, Other chronic pain G89.29 [place] [id number] [place] [address] 52260- 1654 September, Other chronic pain G89.29 [place] [id number] [place] [address] 41031- 1068 Aug, Mood disorder F39 [facility] [id number] [place] [address] 29694- 9209 Aug, Other chronic pain G89.29 ; Controlled type 2 diabetes mellitus without complication, without long-term current use of insulin E11.9 ; Low back pain M54.5 and Tinea corporis B35.4 [place] [id number] [place] [address] 28478- 9035 Aug, Mood disorder F39 and Anxiety F41.9 [place] [address] 04935- 9855 Aug, Mood disorder F39 and Anxiety F41.9 [place] [address] 50002- 5768 Jul, [facility] [address] 75904 -3555 Jul, Scabies B86 and BMI 45.0-49.9, adult Z68.42 [place] [address] 04226- 5186 Jul, [place] [address] 54325- 6747 Jul, Mood disorder F39 and Anxiety F41.9 [place] [address] 25570- 7794 Jul, [facility] [address] 71219 -7584 27 Jun, 2017 Bronchitis J40 ; Dark urine R82.99 and BMI 45.0-49.9, adult Z68.42 [place] [address] 10612- 0087 14 Jun, 2017 Acute pain of right shoulder M25.511 and Acute pain of right knee M25.561 [place] [address] 13605- 7706 May, BMI 40.0-44.9, adult Z68.41 ; Controlled type 2 diabetes mellitus without complication, without long-term current use of insulin E11.9 ; Muscle cramping R25.2 ; Hot flashes R23.2 ; Mood disorder F39 ; Anxiety F41.9 and Morbid (severe) obesity due to excess calories E66.01 [place] [id number] [place] [address] 24314- 0057 31 May, 2017 BMI 40.0-44.9, adult Z68.41 ; Controlled type 2 diabetes mellitus without complication, without long-term current use of insulin E11.9 ; Muscle cramping R25.2 and Hot flashes R23.[address] [place] [id number] [place] [address] 89763- 8290 May, Tachycardia with heart rate 121-140 beats per minute R00.0 ; Morbid (severe) obesity due to excess calories E66.01 ; Diabetes type 2, controlled E11.9 and Enlarged thyroid gland E04.[address] 07596- 1711 25 May, 2017 Encounter for well woman [...] Dysuria R30.0 and Screening breast examination Z12.31 [place] [id number] [place] [address] 95125- 7284 Apr, Mood disorder F39 ; Other chronic pain G89.29 and Anxiety F41.9 [place] [id number] [place] [address] 29939- 9659 Apr, Lumbago with sciatica, left side M54.42 and Other chronic pain G89.29 [place] [id number] [place] [address] 87466- 2230 Apr, Lupus erythematosus L93.0 [place] [id number] [place] [address] 50867- 5298 Mar, Plantar wart of both feet B07.0 [place] [id number] [place] [address] 17815- 5042 Mar, Lupus erythematosus L93.0 and Sinus drainage J34.89 [facility] [address] 22362- 8748 Mar, Mood disorder F39 ; Other chronic pain G89.29 and Anxiety F41.9 [facility] [address] 44869- 6420 Mar, Mood disorder F39 ; Arthritis M19.90 and Plantar warts B07.0 [facility] [address] 07483- 5003 Feb, Lupus erythematosus L93.0 [facility] [address] 34054- 2707 Feb, Other chronic pain G89.29 [facility] [address] 34474- 6781 Feb, Mood disorder F39 and Anxiety F41.9 [facility] [address] 59715- 5202 Jan, [place] [address] 91505- 2036 Jan, Mood disorder F39 [facility] [id number] [place] [address] 03466- 7124 Dec, Nail, ingrown L60.0 [facility] [address] 94170- 3694 Dec, Nail, ingrown L60.0 [facility] [id number] [place] [address] 09169- 2481 Nov, Mood disorder F39 and Anxiety F41.9 [facility] [id number] [place] [address] 65000- 4042 Nov, Sinus drainage J34.89 ; Hot flashes R23.2 ; Anxiety F41.9 and Diabetes type 2, controlled E11.9 [facility] [address] [address]- 6028 Nov, Nail, ingrown L60.0 [facility] [id number] [place] [address] 30444- 5760 Oct, Anxiety F41.9 and Mood disorder F39 [facility] [id number] [place] [address] 96067- 4953 Oct, Nail, ingrown L60.0 and Anxiety F41.9 [facility] [id number] [place] [address] 31487- 9077 Oct, Lupus erythematosus L93.0 [facility] [id number] [place] [address] 87877- 0675 September, [facility] [id number] [place] [address] 58676- 4315 September, [facility] [id number] [place] [address] 34398- 1415 September, Lupus erythematosus L93.0 [facility] [id number] [place] [address] 27532- 6765 Aug, [facility] [id number] [place] [address] 52003- 5165 Aug, Mood disorder F39 and Anxiety F41.9 [facility] [id number] [place] [address] 12247- 7073 Aug, Lupus erythematosus L93.0 ; Diabetes type 2, controlled E11.9 and Localized edema R60.0 [facility] [id number] [place] [address] 92498- 3413 Aug, [facility] [id number] [place] [address] 58222- 9969 Jul, Anxiety F41.9 and Mood disorder F39 [facility] [id number] [place] [address] 63536- 8680 Jul, Diabetes type 2, controlled E11.9 [place] [address] [id number] [place] [address] 17724- 9237 Jun, Anxiety F41.9 [place] [address] [id number] [place] [address] 33876- 4448 May, [place] [address] [id number] [place] [address] 59735- 8757 May, [place] [id number] [place] [address] 28472- 6484 May, Nausea R11.0 ; Other chronic pain G89.29 and Pain in right knee M25.561 [place] [address] [id number] [place] [address] 13940- 4279 May, [place] [id number] [place] [address] 47707- 7258 Apr, Tear of medial meniscus of right knee, current, unspecified tear type, subsequent encounter S83.241D and Tear of lateral meniscus of right knee, current, unspecified tear type, subsequent encounter S83.281D [place] [id number] [place] [address] 82831- 1226 Apr, Anxiety F41.9 and Mood disorder F39 [place] [address] [id number] [place] [address] 40973- 1343 Apr, Anxiety F41.9 [place] [id number] [place] [address] 74636- 9079 Apr, [place] [address] [id number] [place] [address] 54515- 5356 Mar, [place] [id number] [place] [address] 67553- 8216 Mar, Lupus erythematosus L93.0 and Diabetes type 2, controlled E11.9 [place] [id number] [place] [address] 42867- 1050 Mar, Mood disorder F39 [facility] [address] [address]- 8380 Mar, Tear of lateral meniscus of right knee, current, unspecified tear type, initial encounter S83.281A and Osteoarthritis of right knee, unspecified osteoarthritis type M17.9 [facility] [address] [place] [address] 33519- 2076 Mar, [facility] [id number] [place] [address] 61649- 7546 Feb, Mood disorder F39 [facility] [id number] [place] [address] 37741- 4295 Feb, Rash R21 [facility] [id number] [place] [address] 78120- 8428 Feb, [facility] [id number] [place] [address] 65219- 7732 Jan, Other chronic pain G89.29 and Muscle spasm M62.838 [facility] [address] [place] [address] 87758 2548 Jan, Mood disorder F39 [facility] [address] [place] [address] 91078- 7494 Jan, Pain in right knee M25.561 ; Other chronic pain G89.29 and Muscle spasm M62.838 [facility] [address] [address]- 1076 Dec, [facility] [id number] [place] [address] 08227 2543 Dec, [facility] [id number] [place] [address] 38787- 9469 Nov, [facility] [id number] [place] [address] 70327- 1240 Nov, Mood disorder F39 [facility] [id number] [place] [address] 13340- 9706 Nov, Diabetes type 2, controlled E11.9 ; Bronchitis J40 ; Edema, unspecified type R60.9 ; Weight gain R63.5 and Right knee pain, unspecified chronicity M25.561 [facility] [id number] [place] [address] 99146- 3247 Oct, Mood disorder F39 [facility] [id number] [place] [address] 37057- 1976 Oct, Lupus erythematosus L93.0 and Bilateral edema of lower extremity R60.0 [facility] [id number] [place] [address] 54193- 5952 Oct, Mood disorder F39 and Anxiety F41.9 [place] [address] [id number] [place] [address] 53516- 4830 September, Mood disorder F39 ; Anxiety F41.9 and Anger reaction R45.4 [place] [address] [id number] [place] [address] 63095- 9290 September, Diabetes type 2, controlled E11.9 ; Edema, unspecified type R60.9 and Fatigue, unspecified type R53.83 [place] [address] [id number] [place] [address] 50086- 8041 Aug, Mood disorder F39 and Generalized anxiety disorder F41.1 [place] [address] [id number] [place] [address] 55074- 2970 Aug, Diabetes type 2, controlled E11.9 ; Sinusitis J32.9 and Mood disorder F39 [facility] [id number] [place] [address] 80723- 5725 Aug, Lupus erythematosus L93.0 [facility] [id number] [place] [address] 64894- 5531 Aug, [facility] [id number] [place] [address] 02644- 6894 Aug, [place] [address] [place] [address]- 3384 Jul, Diabetes type 2, controlled E11.9 [facility] [id number] [place] [address] 43897- 4856 Jul, Mood disorder F39 and Depression F32.9 [facility] [id number] [place] [address] 38459 2546 Jul, Lupus erythematosus L93.0 and Diabetes type 2, controlled E11.9 [facility] [id number] [place] [address] 82621 2540 Jul, Mood disorder F39 and Anxiety F41.9 [facility] [id number] [place] [address] 39766- 1596 Jul, [facility] [id number] [place] [address] 40694- 6481 Jul, [facility] [id number] [place] [address] 34514- 2498 Jun, Mood disorder F39 and Anxiety F41.9 [facility] [id number] [place] [address] 01754- 5658 Jun, Mood disorder F39 [facility] [id number] [place] [address] 24289- 2156 18 Jun, 2015 [facility] [address] [place] [address] 16875- 0106 15 Jun, 2015 [facility] [address] [address]- 2546 08 Jun, 2015 Mood disorder F39 [facility] [id number] [place] [address] 97892- 1196 Jun, [facility] [address] [address]- 3286 May, [facility] [id number] [place] [address] 05352- 7030 May, [facility] [address], [place] [address]- 9137 May, [facility] [id number] [place] [address] 76361- 5596 May, [facility] [id number] [place] [address] 97625- 4066 May, Anxiety F41.9 ; Dermatomyositis M33.90 and Diabetes type 2, controlled E11.9 [facility] [id number] [place] [address] 78282 -9967 May, Sinusitis J32.9 and Cough R05 [facility] [id number] [place] [address] 87226- 6861 May, Mood disorder F39 [facility] [id number] [place] [address] 74448- 0108 May, Adjustment disorder with mixed anxiety and depressed mood F43.23 [facility] [id number] [place] [address] 12019- 6735 23 Apr, 2015 [facility] [id number] [place] [address] 96297- 1549 Apr, [facility] [id number] [place] [address] 54475- 7016 Apr, Generalized anxiety disorder F41.1 and Mood disorder F39 [facility] [id number] [place] [address] 10852- 3869 Mar, [facility] [id number] [place] [address] 64973- 2514 16 Mar, 2015 [facility] [id number] [place] [address] 16361- 3538 Mar, [facility] [id number] [place] [address] 82385- 0145 Mar, Mood disorder F39 [facility] [id number] [place] [address] 81730- 8389 Feb, [place] [address] [id number] [place] [address] 99173- 5692 Feb, Diabetes E11.9 and Bronchitis J40 [place] [address] [place] [id number] [place] [address] 10527- 0535 Feb, [place] [address] 42008- 8897 Feb, [place] [address] 35340- 7031 Feb, Major depression, recurrent, full remission F33.42 and KELLY ( generalized anxiety disorder) F41.1 [place] [address] [id number] [place] [address] 77175- 1493 Feb, [place] [address] 15412- 7744 Feb, Single major depressive episode, in partial or unspecified remission F32.5 [place] [address] [place] [id number] [place] [address] 69228- 2781 Jan, Fatigue 780.79 [place] [address] [id number] [place] [address] 94583- 9904 Jan, [place] [address] [id number] [place] [address] 65099- 1998 Jan, Diabetes with other specified manifestations, type II or unspecified type, not stated as uncontrolled 250.80 [place] [address] [place] [id number] [place] [address]198- [address] Jan, [place] [address] [address] Dec, Hot flashes 627.2 ; Memory loss 780.93 and Joint pain 719.40 [place] [address] [place] [id number] [place] [address] Dec, Major depression, recurrent 296.30 ; Generalized anxiety disorder 300.02 ; Adjustment disorder with depressed mood 309.0 and No condition on [place] II V71.09 [place] [address] [address] Dec, [facility] [id number] [address] Nov, Cognitive and neurobehavioral dysfunction 294.9 ; Major depressive disorder, recurrent episode, moderate degree 296.32 and Anxiety state , unspecified 300.00 [place] [address] [id number] [address] Nov, [facility] [address] [address] [id number] [place] [address]47[address] Nov, Bronchitis 490 and Diabetes with other specified manifestations, type II or unspecified type, not stated as uncontrolled 250.80 [place] [address], [place] [address] Nov, Major depressive disorder, recurrent episode, moderate 296.32 and Anxiety disorder, unspecified 300.00 [place] [address], [place] [address] Nov, Anxiety, generalized 300.02 ; Intermittent explosive disorder 312.34 ; No condition on [place] II V71.09 and No condition on axis III V71.09 [place] [address] [address] Oct, Diabetes with other specified manifestations, type II or unspecified type, not stated as uncontrolled 250.80 ; Urinary tract infection, site not specified 599.0 and Bronchitis 490 [place] [address] [address] Oct, Intermittent explosive disorder 312.34 ; Bipolar 1 disorder , depressed, moderate 296.52 ; Major depression, chronic 296.20 ; No condition on [place] II V71.09 and No condition on axis III V71.09 [place] [address], [place] [address] Oct, Major depressive disorder, recurrent episode, moderate 296.32 ; Anxiety state 300.00 ; Cognitive decline 294.9 and No condition on [place] II V71.09 [facility] [id number] [place] [address] [id number] Oct, [facility] [address] [id number] [place] [address] [id number]- 1658 Oct, Major depressive disorder, recurrent episode, moderate 296.32 ; Anxiety disorder, unspecified 300.00 and Persistent disorder of initiating or maintaining sleep 307.42 [facility] [id number] [place] [address] 8[address]30- 8390 September, Diabetes with other specified manifestations, type II or unspecified type, not stated as uncontrolled 250.80 ; Memory loss 780.93 and Cognitive complaints 799.59 [facility] [id number] [place] [address] 81146- 8845 September, No condition on [place] II V71.09 ; Major depression, recurrent 296.30 and Persistent mood [affective] disorder, unspecified 296.90 [facility] [id number] [place] [address] 35455- 6016 Aug, [facility] [id number] [place] [address] 80348- 2826 Aug, [facility] [id number] [address] 5[address] Aug, [facility] [id number] [address] 6688 Jul, [facility] [id number] [address] 4094 Jul, [facility] [id number] [place] [address] 05401- 2375 Jul, [facility] [id number] [address] 5679 Jul, [facility] [id number] [place] [address] 98401- 5437 Jul, [facility] [place] [facility] [address] [id number] [place] [address] 0202 Jun, 2014 [facility] [place] [facility] [address] [facility] [id number] [place] [address]- 9056 Jun, 2014 [facility] [place] [facility] [address] [facility] [id number] [place] [address]- 3365 Jun, 2014 [facility] [place] [facility] [address] [facility] [id number] [place] [address]- 8674 Jun, 2014 [facility] [place] [facility] [address] [id number] [place] [address]- 4482 Jun, 2014 [facility] [place] [facility] [address] [facility] [id number] [place] [address]- 4738 Jun, 2014 [facility] [place] [facility] [address] [facility] [id number] [place] [address]- 0207 Jun, 2014 [facility] [place] [facility] [address] [facility] [id number] [place] [address]- 9051 Jun, 2014 [facility] [place] [facility] [address] [facility] [id number] [place] [address]- 5879 Jun, 2014 [facility] [place] [facility] [address] [facility] [id number] [place] [address]- 0198 Jun, 2014 [facility] [place] [facility] [address] [facility] [id number] [place] [address]- 0154 Jun, 2014 [facility] [place] [facility] [address] [facility] [id number] [address]- 9261 Jun, 2014 [facility] [place] [facility] [address] [facility] [id number] [place] [address]- 8069 Jun, 2014 [facility] [place] [facility] [address] [facility] [id number] [address]- 1129 May, [facility] [place] [facility] [address] [facility] [id number], [place] [address]- 8892 May, [facility] [place] [facility] [address] [id number] [place] [address]- 6147 Apr, [facility] [place] [facility] [address] [id number] [place] [address]- 5147 Apr, [facility] [place] [facility] [address] [id number] [place] [address]- 8052 Apr, [facility] [place] [facility] [address] [id number] [place] [address]- 2306 Apr, [facility] [place] [facility] [address] [id number] [place] [address]- 4131 Apr, [facility] [place] [facility] [address] [id number] [place] [address]- 8280 Apr, [facility] [place] [facility] [address] [id number] [place] [address]- 2272 Apr, [facility] [place] [facility] [address] [id number] [place] [address]- 2298 Apr, [facility] [place] [facility] [address] [id number] [place] [address]- 7669 Apr, [facility] [place] [facility] [address] [id number] [place] [address]- 3841 Apr, [facility] [place] [facility] [address] [id number] [place] [address]- 4649 Apr, [facility] [place] [facility] [address] [id number] [place] [address]- 6861 Apr, [facility] [place] [facility] [address] [id number] [place] [address]- 2629 Apr, [facility] [place] [facility] [address] [id number] [place] [address]- 3510 Apr, [facility] [place] [facility] [address] [id number] [place]11 Apr, [facility] [place] [facility] [address] [id number] [place] [address]- 9628 Apr, [facility] [place] [facility] [address] [id number] [place] [address]- 0590 Apr, [facility] [place] [facility] [address] [id number] [place] [address]- 3447 Apr, [facility] [place] [facility] [address] [id number] [place] [address]- 2572 Apr, [facility] [place] [facility] [address] [id number] [place] [address]- 2598 Apr, [facility] [place] [facility] [address] [id number] [place] [address]- 3018 Mar, [facility] [place] [facility] [address] [id number] [place] [address]- 0053 Mar, [facility] [place] [facility] [address] [id number] [place] [address]- 4606 Mar, [facility] [place] [facility] [address] [id number] [place] [address]- 2010 Mar, [facility] [place] [facility] [address] [id number] [place] [address]- 1073 Mar, [facility] [place] [facility] [address] [id number] [place] [address]- 1961 Mar, [facility] [place] [facility] [address] [id number] [address]- 4820 Mar, [facility] [place] [facility] [address] [id number] [place] [address]- 6539 Mar, [facility] [place] [facility] [address] [id number] [place] [address]- 3464 Mar, [facility] [place] [facility] [address] [id number] [place] [address]- 4197 Mar, [facility] [place] [facility] [address] [id number] [place] [address]- 8179 Mar, [facility] [place] [facility] [address] [id number] [place] [address]- 7449 Mar, [facility] [place] [facility] [address] [id number] [place] [address]- 6653 Mar, [facility] [place] [facility] [address] [id number] [place] [address]- 3197 Feb, [facility] [place] [facility] [address] [id number] [place] [address]- 6384 Feb, [facility] [place] [facility] [address] [id number] [place] [address]- 2195 30 Feb, 2014 [facility] [place] [facility] [address] [id number] [place] [address]- 3604 Feb, [facility] [place] [facility] [address] [id number] [place] [address]- 0264 Feb, [facility] [place] [facility] [address] [id number] [place] [address]- 4890 Feb, [facility] [place] [facility] [address] [id number] [place] [address]- 1194 Feb, [facility] [place] [facility] [address] [id number] [place] [address]- 9365 Feb, [facility] [place] [facility] [address] [id number] [place] [address]- 1361 Feb, [facility] [place] [facility] [address] [id number] [place] [address]- 1121 Feb, [facility] [place] [facility] [address] [id number] [place] [address]- 3327 13 Feb, 2014 [facility] [place] [facility] [address] [id number] [place]90 10 Feb, 2014 [facility] [place] [facility] [address] [id number] [place] [address]- 1005 10 Feb, 2014 [facility] [place] [facility] [address] [id number] [place] [address]- 1358 Feb, [facility] [place] [facility] [address] [id number] [place] [address]- 7021 Feb, [facility] [place] [facility] [address] [id number] [place] [address]- 1986 Jan, [facility] [place] [facility] [address] [id number] [place] [address]- 7465 Jan, [facility] [place] [facility] [address] [id number] [place] [address]- 7973 Jan, [facility] [place] [facility] [address] [id number] [place] [address]- 9428 Jan, [facility] [place] [facility] [address] [id number] [place] [address]- 4490 Jan, [facility] [place] [facility] [address] [id number] [place] [address]- 5128 Dec, [facility] [place] [facility] [address] [id number] [place] [address]- 2125 Dec, [facility] [place] [facility] [address] [id number] [place] [address]- 9446 Dec, [facility] [place] [facility] [address] [id number] [place] [address]- 9573 Dec, [facility] [place] [facility] [address] [id number] [place] [address]- 1938 Nov, [facility] [place] [facility] [address] [id number] [place] [address]- 5383 Nov, [facility] [place] [facility] [address] [id number] [place] [address]- 0077 Nov, [facility] [place] [facility] [address] [id number] [place] [address]- 8090 Nov, [facility] [place] [facility] [address] [id number] [place] 1621 Nov, [facility] [place] [facility] [address] [id number] [address]- 3038 Nov, [facility] [place] [facility] [address] [id number] [place] [address]- 6852 Nov, [facility] [place] [facility] [address] [id number] [place] [address]- 9206 Nov, [facility] [place] [facility] [address] [id number] [place] [address]- 9483 Nov, [facility] [place] [facility] [address] [id number] [place] [address]- 7887 Nov, [facility] [place] [facility] [address] [id number] [place] [address]- 8179 Oct, [facility] [place] [facility] [address] [id number] [place] [address]- 7401 Oct, [facility] [place] [facility] [address] [id number] [place] [address]- 9313 September, [facility] [place] [facility] [address] [id number] [place] [address]- 5925 September, [facility] [place] [facility] [address] [id number] [place] [address]- 8809 September, [facility] [place] [facility] [address] [id number] [place] [address]- 6397 September, [facility] [place] [facility] [address] [id number] [place] [address]- 7118 Aug, [facility] [place] [facility] [address] [id number] [place] [address]- 8800 Aug, [facility] [place] [facility] [address] [id number] [place] [address]- 2269 Aug, [facility] [place] [facility] [address] [id number] [place] [address]- 8752 Jul, [facility] [place] [facility] [address] [id number] [place] [address]- 4941 Jul, [facility] [place] [facility] [address] [id number] [place] [address]- 8882 14 Jul, 2013 [facility] [place] [facility] [address] [id number] [place] [address]- 5201 14 Jul, 2013 [facility] [place] [facility] [address] [id number] [place] [address]- 2631 20 May, 2013 [facility] [place] [facility] [address] [id number] [place] [address]- 6241 17 May, 2013 [facility] [place] [facility] [address] [id number] [place] [address]- 2993 17 May, 2013 [facility] [place] [facility] [address] [id number] [place] [address]- 0337 15 Mar, 2013 [facility] [place] [facility] [address] [id number] [place] [address]- 4584 15 Mar, 2013 [facility] [place] [facility] [address] [id number] [place] [address]- 7994 Mar, [facility] [place] [facility] [address] [id number] [place] [address]- 0186 Mar, [facility] [place] [facility] [address] [id number] [place] [address]- 0644 16 Feb, 2013 [facility] [place] [facility] [address] [id number] [place] [address]- 2306 16 Feb, 2013 [facility] [place] [facility] [address] [id number] [place] [address]- 3397 04 Feb, 2013 [facility] [place] [facility] [address] [id number] [place] [address]- 8135 16 Jan, 2013 [facility] [place] [facility] [address] [id number] [place] [address]- 2621 12 Jan, 2013 [facility] [place] [facility] [address] [id number] [place] [address]- 6951 09 Jan, 2013 [facility] [place] [facility] [address] [id number] [place] [address]- 7498 Dec, [facility] [address] [id number] [place] [address]- 9564 Dec, [facility] [place] [facility] [address] [id number] [place] [address]- 9117 Dec, [facility] [place] [facility] [address] [id number] [place] [address]- 7789 Dec, [facility] [place] [facility] [address] [id number] [place] [address]- 0196 Nov, [facility] [address] [id number] [place] [address]- 5945 Oct, [facility] [place] [facility] [address] [id number] [place] [address]- 4313 Oct, [facility] [place] [facility] [address] [id number] [place] [address]- 9644 September, [facility] [place] [facility] [address] [id number] [place] [address]- 5323 September, [facility] [place] [facility] [address] [id number] [place] [address]- 8275 September, [facility] [place] [facility] [address] [id number] [place] [address]- 9287 Aug, [facility] [place] [facility] [address] [id number] [place] [address]- 4891 Aug, [facility] [place] [facility] [address] [id number] [place] [address]- 3328 Aug, [facility] [place] [facility] [address] [id number] [place] [address]- 5859 Aug, [facility] [place] [facility] [address] [id number] [place] [address]- 6833 Jul, [facility] [place] [facility] [address] [id number] [place] [address]- 1232 Jul, [facility] [place] [facility] [address] [id number] [place] [address]- 2003 21 Jul, 2012 [facility] [address] [id number] [place] [address]- 1099 15 Jul, 2012 [facility] [place] [facility] [address] [id number] [place] [address]- 0576 14 Jul, 2012 [facility] [address] [id number] [place] [address]- 0606 13 Jul, 2012 [facility] [place] [facility] [address] [id number] [place] [address]- 7078 13 Jul, 2012 [facility] [address] [id number] [place] [address]- 4286 06 Jun, 2012 [facility] [place] [facility] [address] [id number] [place] [address]- 0415 06 Jun, 2012 [facility] [address] [facility] [id number] [place] [address]- 5973 05 Jun, 2012 [facility] [address] [id number] [place] [address]- 6239 Jun, [facility] [id number] [place] [address]- 5752 May, [facility] [address] [facility] [id number] [place] [address]- 1668 May, [facility] [address] [id number] [place] [address] 2543 May, [facility] [place] [facility] [address] [id number] [place] [address] 2544 May, [facility] [place] [facility] [address] [id number] [place] [address]- 0196 May, [facility] [place] [facility] [address] [id number] [place] [address]- 5796 Apr, [facility] [place] [facility] [address] [id number] [place] 4268 Apr, [facility] [place] [facility] [address] [id number] [place] [address]- 3689 Mar, [facility] [place] [facility] [address] [id number] [place] [address]- 0162 Mar, [facility] [place] [facility] [address] [id number] [place] [address]- 4126 Mar, [facility] [place] [facility] [address] [id number] [place] [address]- 5562 Mar, [facility] [place] [facility] [address] [id number] [place] [address]- 7946 Mar, [facility] [place] [facility] [address] [id number] [place] [address]- 0865 Mar, [facility] [place] [facility] [address] [id number] [place] [address]- 9788 Mar, [facility] [place] [facility] [address] [id number], [place] [address]- 4972 Mar, [facility] [place] [facility] [address] [id number] [place] [address]- 0115 Mar, [facility] [place] [facility] [address] [facility] [id number], [place] [address]- 3456 Mar, [facility] [place] [facility] [address] [id number], [place] [address]- 8849 Feb, [facility] [place] [facility] [address] [id number], [place] [address]- 4930 Feb, [facility] [place] [facility] [address] [id number], [place] [address]- 0293 Feb, [facility] [place] [facility] [address] [id number], [place] [address]- 5298 Feb, [facility] [place] [facility] [address] [facility] [id number], [place] [address]- 3009 Feb, [facility] [place] [facility] [address] [id number], [place] [address]- 8069 Feb, [facility] [place] [facility] [address] [id number] [place] [address]- 3631 Feb, [facility] [place] [facility] [address] [id number] [place] [address]- 8587 Jan, [facility] [place] [facility] [address] [id number] [place] [address]- 2979 Jan, [facility] [place] [facility] [address] [id number] [place] [address]- 3218 Dec, [facility] [place] [facility] [address] [id number] [place] [address]- 2922 Dec, [facility] [place] [facility] [address] [id number] [place] [address]- 0530 Dec, [facility] [place] [facility] [address] [id number] [place] [address]- 9004 Dec, [facility] [place] [facility] [address] [id number] [place] [address]- 2743 Dec, [facility] [place] [facility] [address] [id number] [place] [address]- 6287 Dec, [facility] [place] [facility] [address] [id number] [place] [address]- 4056 Nov, [facility] [place] [facility] [address] [id number] [place] [address]- 8699 Nov, [facility] [place] [facility] [address] [id number] [place] [address]- 6016 Nov, [facility] [place] [facility] [address] [id number] [place] [address]- 9564 Nov, [facility] [place] [facility] [address] [id number] [place] [address]- 5207 September, [facility] [place] [facility] [address] [id number] [place] [address]- 0846 September, [facility] [place] [facility] [id number] [address]- 9366 September, [facility] [id number] [address]- 6333 Jul, [facility] [id number] [address] Jun, [facility] [id number] [place] [address] Jun, [facility] [id number] [place] [address] Jun, [facility] [id number] [place] [address] Apr, [facility] [id number] [place] [address] Mar, [facility] [id number] [place] [address] Mar, [facility] [id number] [address] Feb, [facility] [id number] [address] Feb, [facility] [id number] [place] [address] Feb, [facility] [id number] [place] [address] Jul, [facility] [id number] [address] Feb, IMMUNIZATIONS No Known Immunizations SOCIAL HISTORY Never Assessed REASON FOR VISIT f/u PLAN OF CARE Activity Details Follow Up Next available Reason: F/U VITAL SIGNS MEDICATIONS Unknown Medications RESULTS No Results PROCEDURES Procedure Date Ordered Result Body Site Psychotherapy, patient &/family, 45 minutes, established patient Jan 08, 2018 INSTRUCTIONS MEDICATIONS ADMINISTERED No Known Medications MEDICAL (GENERAL) HISTORY Type Description Date Medical History type II diabetes-dx'd 12/2010 Medical History dysfunctional uterine bleeding--endometrial bx 12/2010 Medical History asthma Medical History hypertension Medical History obesity Medical History anxiety Medical History autoimmune disease Surgical History x1 Hospitalization History child Hospitalization History Asthma
--- OUTSIDE RECORDS SUMMARY | 2018-05-09 22:46 | XMS REPORT ---
Author Author HENRY THOMPSON [facility] Address [address] [place] [address] Care Team Providers Care Crm Architect Name Role Phone HENRY THOMPSON Unavailable PROBLEMS Type Condition ICD9-CM Code VSH45-BD Code Onset Dates Condition Status SNOMED Code Problem Lumbago with sciatica, left side M54.42 Active 826874361 Problem Tachycardia with heart rate 121-140 beats per minute R00.0 Active 6939650 Problem Controlled type 2 diabetes mellitus without complication, without long -term current use of insulin E11.9 Active 636883035 Problem Gait disturbance R26.9 Active 21319864 Problem Lumbago with sciatica, right side M54.41 Active 319995444 Problem Enlarged thyroid gland E04.9 Active 0737605 Problem Body mass index (BMI) of 45.0-49.9 in adult Z68.42 Active 353748631 Problem Morbid (severe) obesity due to excess calories E66.01 Active 491049360 Problem Dermatomyositis M33.90 Active 596869384 Problem Mood disorder F39 Active 22626340 Problem Diabetes type 2, controlled E11.9 Active 40527134 Problem Menopause Z78.0 Active 635279117 Problem Allergic rhinitis due to pollen J30.1 Active 40309070 Problem Other chronic pain G89.29 Active 19542139 Problem Arthritis M19.90 Active 1513148 Problem Osteoarthritis of right knee, unspecified osteoarthritis type M17.9 Active 039242310 Problem Plantar warts B07.0 Active 24836029 Problem Anxiety F41.9 Active 24739793 Problem Plantar wart of both feet B07.0 Active [id number] ALLERGIES No Information ENCOUNTERS Encounter Location Date Diagnosis [facility] [address] [facility] [id number], [place] [address] Feb, [facility] [address] [facility] [id number], [place] [address] 28 Jan, 2018 [facility] [address] [place] [id number] [place] [address] 35564- 8136 27 Jan, 2018 [facility] [address] 36383- 1251 17 Jan, 2018 [facility] [address] 47307- 0057 14 Jan, 2018 [facility] [address] 43331- 9879 11 Jan, 2018 Dermatomyositis M33.90 and BMI 40.0-44.9, adult Z68.41 [place] [address] 33019- 3160 10 Jan, 2018 [place] [address] 89960- 1236 05 Jan, 2018 [place] [address] 53484- 7562 04 Jan, 2018 Irritation of left eye H57.8 and BMI 40.0-44.9, adult Z68.41 [place] [address] 09156- 2913 Dec, Diabetes type 2, controlled E11.9 [place] [address] [place] [id number] [place] [address] 76067- 2768 Dec, Acute right ankle pain M25.571 [place] [address] [place] [id number] [place] [address] 54033- 7087 Dec, Other chronic pain G89.29 ; Diabetes type 2, controlled E11.9 ; Gait disturbance R26.9 ; Weakness R53.1 and Muscle spasm M62.838 [place] [address] [place] [id number] [place] [address] 46083- 7419 Dec, Acute non-recurrent maxillary sinusitis J01.00 [place] [address] 78461- 5055 Dec, [facility] [address] [place] [id number] [place] [address] 39766- 6861 Dec, [facility] [address] [id number] [place] [address] 82227- 6056 Dec, Acute non-recurrent maxillary sinusitis J01.00 [facility] [address] [id number] [place] [address] 92249- 5260 Dec, Lumbago with sciatica, right side M54.41 and Lupus erythematosus L93.0 [facility] [id number] [place] [address] 57019- 7566 Dec, Mood disorder F39 [facility] [id number] [place] [address] 16050- 8139 Dec, Mood disorder F39 [facility] [id number] [place] [address] 17742- 9724 Dec, [facility] [address] [id number] [place] [address] 65448- 8463 Dec, Acute right ankle pain M25.571 [facility] [id number] [place] [address] 13483- 6060 Nov, Lumbar radiculopathy M54.16 [facility] [address] [id number] [place] [address] 66139- 3336 Nov, [facility] [id number] [place] [address] 61138- 7572 Nov, Mood disorder F39 [facility] [id number] [place] [address] 19975- 1050 Nov, Lumbago with sciatica, right side M54.41 and Other chronic pain G89.29 [facility] [id number] [place] [address] 35001- 2567 Nov, Acute right ankle pain M25.571 [facility] [id number] [place] [address] 09197- 2904 Nov, [facility] [address] [id number] [place] [address] 13765- 0764 Oct, [facility] [address] [place] [id number] [place] [address] 83735- 3945 Oct, Plantar wart of both feet B07.0 [facility] [address] [place] [id number] [place] [address] 73605- 3291 Oct, [facility] [address] [place] [id number] [place] [address] 32121- 7397 Oct, Acute right ankle pain M25.571 and Plantar wart of both feet B07.0 [place] [address] [place] [id number] [place] [address] 07195- 7964 September, Other chronic pain G89.29 [place] [address] [place] [id number] [place] [address] 23271- 8488 September, Other chronic pain G89.29 [place] [address] [place] [id number] [place] [address] 74329- 2522 September, Other chronic pain G89.29 [place] [address] [place] [id number] [place] [address] 66766- 9778 Aug, Mood disorder F39 [place] [address] [place] [id number] [place] [address] 94632- 3036 Aug, Other chronic pain G89.29 ; Controlled type 2 diabetes mellitus without complication, without long-term current use of insulin E11.9 ; Low back pain M54.5 and Tinea corporis B35.4 [place] [address] [place] [id number] [place] [address] 71286- 9652 Aug, Mood disorder F39 and Anxiety F41.9 [place] [address] [place] [id number] [place] [address] 72597- 0083 Aug, Mood disorder F39 and Anxiety F41.9 [place] [address] [place] [id number] [place] [address] 17470- 0274 Jul, [facility] [address] [id number] [place] [address] 14191 -7736 13 Jul, 2017 Scabies B86 and BMI 45.0-49.9, adult Z68.42 [place] [address] [place] [id number] [place] [address] 89520- 6849 Jul, [place] [address] 62951- 7436 Jul, Mood disorder F39 and Anxiety F41.9 [place] [address] 20494- 7361 Jul, [facility] [place] [address] [place] [id number] [place] [address] 79188 -3519 27 Jun, 2017 Bronchitis J40 ; Dark urine R82.99 and BMI 45.0-49.9, adult Z68.42 [place] [address] [place] [id number] [place] [address] 06651- 3183 14 Jun, 2017 Acute pain of right shoulder M25.511 and Acute pain of right knee M25.561 [place] [address] [place] [id number] [place] [address] 63975- 1464 May, BMI 40.0-44.9, adult Z68.41 ; Controlled type 2 diabetes mellitus without complication, without long-term current use of insulin E11.9 ; Muscle cramping R25.2 ; Hot flashes R23.2 ; Mood disorder F39 ; Anxiety F41.9 and Morbid (severe) obesity due to excess calories E66.01 [place] [address] [id number] [place] [address] 20499- 0935 May, BMI 40.0-44.9, adult Z68.41 ; Controlled type 2 diabetes mellitus without complication, without long-term current use of insulin E11.9 ; Muscle cramping R25.2 and Hot flashes R23.2 [place] [address] [place] [id number] [place] [address] 15691- 5669 May, Tachycardia with heart rate 121-140 beats per minute R00.0 ; Morbid (severe) obesity due to excess calories E66.01 ; Diabetes type 2, controlled E11.9 and Enlarged thyroid gland E04.9 [place] [address] [place] [id number] [place] [address] 45531- 8196 May, Encounter for well woman exam with [...] Dysuria R30.0 and Screening breast examination Z12.31 [place] [address] [place] [id number] [place] [address] 03929- 2745 Apr, Mood disorder F39 ; Other chronic pain G89.29 and Anxiety F41.9 [place] [address] [place] [id number] [place] [address] 19980- 8954 Apr, Lumbago with sciatica, left side M54.42 and Other chronic pain G89.29 [place] [address] [place] [id number] [place] [address] 80067- 0652 Apr, Lupus erythematosus L93.0 [place] [address] [place] [id number] [place] [address] 31623- 6418 Mar, Plantar wart of both feet B07.0 [place] [address] [place] [id number] [place] [address] 46978- 4332 Mar, Lupus erythematosus L93.0 and Sinus drainage J34.89 [place] [address] [place] [id number] [place] [address] 12861- 6824 09 Mar, 2017 Mood disorder F39 ; Other chronic pain G89.29 and Anxiety F41.[address] 20129- 7623 Mar, Mood disorder F39 ; Arthritis M19.90 and Plantar warts B07.0 [facility] [address] 70123- 0439 Feb, Lupus erythematosus L93.0 [facility] [address] [place] [id number] [place] [address] 76069- 6116 Feb, Other chronic pain G89.29 [facility] [address] 85071- 0447 Feb, Mood disorder F39 and Anxiety F41.9 [facility] [address] 95833- 5347 Jan, [facility] [address] 77211- 9083 Jan, Mood disorder F39 [facility] [address] 57181- 5536 Dec, Nail, ingrown L60.0 [facility] [address] 83364- 2378 Dec, Nail, ingrown L60.0 [facility] [address] 60710- 4444 Nov, Mood disorder F39 and Anxiety F41.9 [facility] [address] [place] [id number] [place] [address] 79643- 6791 Nov, Sinus drainage J34.89 ; Hot flashes R23.2 ; Anxiety F41.9 and Diabetes type 2, controlled E11.9 [facility] [address] 60491- 1181 Nov, Nail, ingrown L60.0 [facility] [id number] [place] [address] 90163- 4849 Oct, Anxiety F41.9 and Mood disorder F39 [facility] [address] 86449- 4178 Oct, Nail, ingrown L60.0 and Anxiety F41.9 [facility] [address] [place] [id number] [place] [address] 37285- 1023 Oct, Lupus erythematosus L93.0 [facility] [address] [place] [id number] [place] [address] 14524- 4796 September, [facility] [address] 48694- 1482 September, [facility] [address] [place] [id number] [place] [address] 68485- 5161 September, Lupus erythematosus L93.0 [facility] [address] [place] [id number] [place] [address] 89191- 7354 Aug, [facility] [address] [place] [id number] [place] [address] 63151- 7886 Aug, Mood disorder F39 and Anxiety F41.9 [facility] [address] [place] [id number] [place] [address] 15255- 0795 Aug, Lupus erythematosus L93.0 ; Diabetes type 2, controlled E11.9 and Localized edema R60.0 [facility] [address] [id number] [place] [address] 02321- 0038 Aug, [facility] [address] [place] [id number] [place] [address] 36943- 7734 Jul, Anxiety F41.9 and Mood disorder F39 [facility] [address] [place] [id number] [place] [address] 10405- 5814 Jul, Diabetes type 2, controlled E11.9 [facility] [address] [place] [id number] [place] [address] 93603- 8253 Jun, Anxiety F41.9 [facility] [address] [id number] [place] [address] 13628- 1884 May, [facility] [address] [place] [id number] [place] [address] 12911- 9708 May, [place] [address] [place] [id number] [place] [address] 21706- 4921 May, Nausea R11.0 ; Other chronic pain G89.29 and Pain in right knee M25.561 [place] [address] [place] [id number] [place] [address] 18175- 4216 May, [place] [address] 38881- 5321 Apr, Tear of medial meniscus of right knee, current, unspecified tear type, subsequent encounter S83.241D and Tear of lateral meniscus of right knee, current, unspecified tear type, subsequent encounter S83.281D [place] [address] 28906- 9383 Apr, Anxiety F41.9 and Mood disorder F39 [place] [address] 83699- 3424 Apr, Anxiety F41.9 [place] [address] 56737- 5683 Apr, [place] [address] 80227- 7642 Mar, [place] [address] [place] [id number] [place] [address] 19359- 5040 Mar, Lupus erythematosus L93.0 and Diabetes type 2, controlled E11.9 [place] [address] [place] [id number] [place] [address] 07845- 3343 Mar, Mood disorder F39 [place] [address] 62164- 8543 Mar, Tear of lateral meniscus of right knee, current, unspecified tear type, initial encounter S83.281A and Osteoarthritis of right knee, unspecified osteoarthritis type M17.9 [place] [address] [place] [id number] [place] [address] 70361- 8313 02 Mar, 2016 [facility] [address] [address]- 3090 Feb, Mood disorder F39 [facility] [address] [place] [id number] [place] [address] 31223- 2259 Feb, Rash R21 [facility] [address] [place] [id number] [place] [address] 40929- 0824 Feb, [facility] [address] [place] [id number] [place] [address] 25501- 3114 Jan, Other chronic pain G89.29 and Muscle spasm M62.838 [facility] [address] [place] [id number] [place] [address] 63090- 6977 Jan, Mood disorder F39 [facility] [address] [id number] [place] [address] 84018- 0015 Jan, Pain in right knee M25.561 ; Other chronic pain G89.29 and Muscle spasm M62.838 [facility] [id number] [place] [address] 67815- 1542 Dec, [facility] [address] [place] [id number] [place] [address] 56272- 3951 Dec, [facility] [address] [place] [id number] [place] [address] 99933- 2159 Nov, [facility] [address] [place] [id number] [place] [address] 72108- 5962 Nov, Mood disorder F39 [facility] [address] [place] [id number] [place] [address] 80199- 2088 Nov, Diabetes type 2, controlled E11.9 ; Bronchitis J40 ; Edema, unspecified type R60.9 ; Weight gain R63.5 and Right knee pain, unspecified chronicity M25.561 [facility] [address] [place] [id number] [place] [address] 15476- 1810 Oct, Mood disorder F39 [facility] [address] [place] [id number] [place] [address] 95467- 1112 Oct, Lupus erythematosus L93.0 and Bilateral edema of lower extremity R60.0 [facility] [address] [place] [id number] [place] [address] 42000- 2078 Oct, Mood disorder F39 and Anxiety F41.9 [facility] [address] [place] [id number] [place] [address] 94873- 4676 September, Mood disorder F39 ; Anxiety F41.9 and Anger reaction R45.4 [facility] [address] [place] [id number] [place] [address] 86877- 1497 September, Diabetes type 2, controlled E11.9 ; Edema, unspecified type R60.9 and Fatigue, unspecified type R53.83 [place] [address] [place] [id number] [place] [address] 57135- 0448 Aug, Mood disorder F39 and Generalized anxiety disorder F41.1 [place] [address] [place] [id number] [place] [address] 67547- 0563 Aug, Diabetes type 2, controlled E11.9 ; Sinusitis J32.9 and Mood disorder F39 [place] [address] [place] [id number] [place] [address] 37756- 7493 Aug, Lupus erythematosus L93.0 [facility] [address] [id number] [place] [address] 17562- 7465 Aug, [facility] [address] [place] [id number] [place] [address] 44301- 5807 Aug, [facility] [address] [place] [id number] [place] [address] 43950- 4721 Jul, Diabetes type 2, controlled E11.9 [facility] [address] [place] [id number] [place] [address] 24153- 2149 Jul, Mood disorder F39 and Depression F32.9 [facility] [address] [place] [id number] [place] [address] 94077- 6423 Jul, Lupus erythematosus L93.0 and Diabetes type 2, controlled E11.9 [facility] [address], [place] [address]- 0755 07 Jul, 2015 Mood disorder F39 and Anxiety F41.9 [facility] [address], [place] [address]- 7176 Jul, [facility] [address] [id number] [place] [address] 63837- 0356 Jul, [facility] [address] [place] [id number] [place] [address] 92709- 7457 Jun, Mood disorder F39 and Anxiety F41.9 [facility] [address] [id number] [place] [address] 78259- 4673 Jun, Mood disorder F39 [facility] [id number] [place] [address] 07200- 4236 18 Jun, 2015 [facility] [address] [id number] [place] [address] 51233- 5931 Jun, [facility] [address], [place] [address]- 7543 Jun, Mood disorder F39 [facility] [id number] [address]- 6785 Jun, [facility] [address], [place] [address]- 9535 May, [facility] [address], [place] [address]- 4587 May, [facility] [address], [place] [address]- 6684 May, [facility] [id number] [place] [address] 56520- 1634 May, [facility] [address], [place] [address]- 7888 May, Anxiety F41.9 ; Dermatomyositis M33.90 and Diabetes type 2, controlled E11.9 [facility] [id number] [place] [address] 75294 -5088 May, 2016 Sinusitis J32.9 and Cough R05 [facility] [id number] [place] [address] 85256- 4873 May, Mood disorder F39 [facility] [id number] [place] [address] 78205- 3672 May, Adjustment disorder with mixed anxiety and depressed mood F43.23 [facility] [id number] [place] [address] 02571- 2521 Apr, [facility] [id number] [place] [address] 74534- 0476 Apr, [facility] [id number] [place] [address] 90022- 9696 Apr, Generalized anxiety disorder F41.1 and Mood disorder F39 [facility] [id number] [place] [address] 71265- 8146 Mar, [facility] [id number] [place] [address] 23392- 6092 Mar, [facility] [id number] [place] [address] 64418- 7925 Mar, [facility] [id number] [place] [address] 61571- 7318 Mar, Mood disorder F39 [facility] [id number] [place] [address] 45459- 0622 Feb, [facility] [id number] [place] [address] 41913- 2095 Feb, Diabetes E11.9 and Bronchitis J40 [facility] [id number] [place] [address] 81226- 0661 Feb, [facility] [id number] [place] [address] 56378- 5373 Feb, [place] [id number] [place] [address] 21471- 7237 Feb, Major depression, recurrent, full remission F33.42 and KELLY ( generalized anxiety disorder) F41.1 [place] [id number] [place] [address] 16177- 3748 Feb, [place] [id number] [place] [address] 21379- 9480 Feb, Single major depressive episode, in partial or unspecified remission F32.5 [place] [id number] [place] [address] 78277- 8573 Jan, Fatigue 780.79 [place] [id number] [place] [address] 44757- 4413 Jan, [place] [id number] [place] [address] 43324- 4476 Jan, Diabetes with other specified manifestations, type II or unspecified type, not stated as uncontrolled 250.80 [place] [id number] [place] [address] 30586- 3590 Jan, [place] [id number] [place] [address] 78337- 0258 Dec, Hot flashes 627.2 ; Memory loss 780.93 and Joint pain 719.40 [place] [id number] [place] [address] 57854- 6297 Dec, Major depression, recurrent 296.30 ; Generalized anxiety disorder 300.02 ; Adjustment disorder with depressed mood 309.0 and No condition on [place] II V71.09 [place] [id number] [place] [address] 31675- 3607 Dec, [place] [id number] [place] [address] 48922- 2960 Nov, Cognitive and neurobehavioral dysfunction 294.9 ; Major depressive disorder, recurrent episode, moderate degree 296.32 and Anxiety state , unspecified 300.00 [place] [id number] [place] [address] 91376- 1547 Nov, [place] [id number] [place], [place] [phone]- [phone] Nov, Bronchitis 490 and Diabetes with other specified manifestations, type II or unspecified type, not stated as uncontrolled 250.[address] [address]- [address] Nov, Major depressive disorder, recurrent episode, moderate 296.32 and Anxiety disorder, unspecified 300.[address] [id number] [place] [address]371- 2233 Nov, Anxiety, generalized 300.02 ; Intermittent explosive disorder 312.34 ; No condition on [place] II V71.09 and No condition on axis III V71.[address] [address]- [address] Oct, Diabetes with other specified manifestations, type II or unspecified type, not stated as uncontrolled 250.80 ; Urinary tract infection, site not specified 599.0 and Bronchitis [id number] [place] [address] 08359- 2077 Oct, Intermittent explosive disorder 312.34 ; Bipolar 1 disorder , depressed, moderate 296.52 ; Major depression, chronic 296.20 ; No condition on [place] II V71.09 and No condition on axis III V71.[id number] [place] [address] 49632- 6648 Oct, Major depressive disorder, recurrent episode, moderate 296.32 ; Anxiety state 300.00 ; Cognitive decline 294.9 and No condition on [place] II V71.09 [id number] [place] [id number]266 Oct, [place] [address] [id number] [place] [address] 47403- 6655 Oct, Major depressive disorder, recurrent episode, moderate 296.32 ; Anxiety disorder, unspecified 300.00 and Persistent disorder of initiating or maintaining sleep 307.42 [facility] [address] [address] September, Diabetes with other specified manifestations, type II or unspecified type, not stated as uncontrolled 250.80 ; Memory loss 780.93 and Cognitive complaints 799.59 [facility] [id number] [place] [address] 11529- 5829 September, No condition on [place] II V71.09 ; Major depression, recurrent 296.30 and Persistent mood [affective] disorder, unspecified 296.90 [facility] [id number] [place] [address] 47899- 9233 Aug, [facility] [id number] [place] [address] 547578- 6360 Aug, [facility] [id number] [place] [address] 16208- 2392 Aug, [facility] [id number] [place] [address] [id number] 8757 Jul, [facility] [id number] [place] [address] 550795- 2720 Jul, [facility] [address] [id number] 4574 Jul, [facility] [address], [place] [address]- 1756 Jul, [facility] [address] [id number], [place] [address] 9771 Jul, [facility] [id number] [place] [address] 35960- 1816 Jun, [facility] [id number] [place] [address] 52348- 4876 Jun, [facility] [address], [place] [address]- 4451 Jun, [facility] [place] [facility] [address] [id number] [place] [address]- 7495 Jun, 2014 [facility] [place] [facility] [address] [id number] [place] [address]- 8680 Jun, 2014 [facility] [place] [facility] [address] [id number] [place] [address]- 0213 Jun, 2014 [facility] [place] [facility] [address] [id number] [place] [address]- 2254 Jun, 2014 [facility] [place] [facility] [address] [id number] [place] [address]- 8790 Jun, 2014 [facility] [place] [facility] [address] [id number] [place] [address]- 3504 Jun, 2014 [facility] [place] [facility] [address] [facility] [id number] [place] [address]- 0053 Jun, 2014 [facility] [place] [facility] [address] [facility] [id number] [place] [address]- 2366 Jun, 2014 [facility] [place] [facility] [address] [facility] [id number] [place] [address]- 8578 Jun, 2014 [facility] [place] [facility] [address] [facility] [id number] [place] [address]- 7053 Jun, 2014 [facility] [place] [facility] [address] [facility] [id number] [place] [address]- 3060 May, [facility] [place] [facility] [address] [id number] [place] [address]- 4056 May, [facility] [place] [facility] [address] [id number] [place] [address]- 6951 Apr, [facility] [place] [facility] [address] [facility] [id number] [place] [address]- 0592 Apr, [facility] [place] [facility] [address] [facility] [id number] [place] [address]- 8424 Apr, [facility] [place] [facility] [address] [facility] [id number] [place] [address]- 6072 Apr, [facility] [place] [facility] [address] [id number] [place] [address]- 1766 Apr, [facility] [place] [facility] [address] [id number] [place] [address]- 6816 Apr, [facility] [place] [facility] [address] [id number] [place] [address]- 8186 Apr, [facility] [place] [facility] [address] [id number] [place] [address]- 0894 Apr, [facility] [place] [facility] [address] [id number] [place] [address]- 8613 Apr, [facility] [place] [facility] [address] [id number] [place] [address]- 2019 Apr, [facility] [place] [facility] [address] [id number] [place] [address]- 3575 Apr, [facility] [place] [facility] [address] [id number] [place] [address]- 7875 Apr, [facility] [place] [facility] [address] [id number] [place] [address]- 9014 Apr, [facility] [place] [facility] [address] [id number] [place] [address]- 8143 Apr, [facility] [place] [facility] [address] [id number] [place] [address]- 6496 Apr, [facility] [place] [facility] [address] [id number] [place] [address]- 0754 Apr, [facility] [place] [facility] [address] [id number] [place] [address]- 2096 Apr, [facility] [place] [facility] [address] [id number] [place] [address]- 2258 Apr, [facility] [place] [facility] [address] [id number] [place] 4291 Apr, [facility] [place] [facility] [address] [id number] [place] [address]- 9874 Apr, [facility] [place] [facility] [address] [id number] [place] [address]- 4602 Mar, [facility] [place] [facility] [address] [id number] [place] [address]- 0570 Mar, [facility] [place] [facility] [address] [id number] [place] [address]- 2398 Mar, [facility] [place] [facility] [address] [id number] [place] [address]- 8791 Mar, [facility] [place] [facility] [address] [id number] [place] [address]- 7090 Mar, [facility] [place] [facility] [address] [id number] [place] [address]- 7533 Mar, [facility] [place] [facility] [address] [id number] [place] [address]- 5387 Mar, [facility] [place] [facility] [address] [id number] [place] [address]- 9877 Mar, [facility] [place] [facility] [address] [id number] [place] [address]- 0449 Mar, [facility] [place] [facility] [address] [id number] [place] [address]- 2830 Mar, [facility] [place] [facility] [address] [id number], [place] [address]- 2267 Mar, [facility] [place] [facility] [address] [id number] [place] [address]- 6700 Mar, [facility] [place] [facility] [address] [id number] [place] [address]- 5849 Mar, [facility] [place] [facility] [address] [id number] [place] [address]- 6180 Feb, [facility] [place] [facility] [address] [id number], [place] [address]- 4186 Feb, [facility] [place] [facility] [address] [id number] [place] [address]- 2746 30 Feb, 2014 [facility] [place] [facility] [address] [id number] [place] [address]- 0766 Feb, [facility] [place] [facility] [address] [id number] [place] [address]- 2833 Feb, [facility] [place] [facility] [address] [id number] [place] [address]- 6692 Feb, [facility] [place] [facility] [address] [id number] [place] [address]- 0654 Feb, [facility] [place] [facility] [address] [id number] [place] [address]- 9335 Feb, [facility] [place] [facility] [address] [id number] [place] [address]- 7139 Feb, [facility] [place] [facility] [address] [id number] [place] [address]- 4960 Feb, [facility] [place] [facility] [address] [id number] [place] [address]- 4151 Feb, [facility] [place] [facility] [address] [id number] [place] [address]- 3467 Feb, [facility] [place] [facility] [address] [id number], [place] [address]- 7470 Feb, [facility] [place] [facility] [address] [id number], [place] [address]- 2041 07 Feb, 2014 [facility] [place] [facility] [address] [id number] [place] [address]- 3548 07 Feb, 2014 [facility] [place] [facility] [address] [id number], [place] [address]- 8369 10 Jan, 2014 [facility] [place] [facility] [address] [id number] [place] [address]- 9683 08 Jan, 2013 [facility] [place] [facility] [address] [id number] [place] [address]- 1653 08 Jan, 2013 [facility] [place] [facility] [address] [id number] [place] [address]- 5065 Jan, [facility] [place] [facility] [address] [id number] [place] [address]- 5482 Jan, [facility] [place] [facility] [address] [id number] [place] [address]- 6950 Dec, [facility] [place] [facility] [address] [id number] [place] [address]- 0142 Dec, [facility] [place] [facility] [address] [id number] [place] [address]- 7964 Dec, [facility] [place] [facility] [address] [id number] [place] [address]- 8543 Dec, [facility] [place] [facility] [address] [id number] [place] [address]- 2408 Nov, [facility] [place] [facility] [address] [id number] [place] [address]- 1364 Nov, [facility] [place] [facility] [address] [id number] [place] [address]- 1840 Nov, [facility] [place] [facility] [address] [id number] [place] [address]- 4512 Nov, [facility] [place] [facility] [address] [id number] [place] [address]- 9827 Nov, [facility] [place] [facility] [address] [id number] [place] [address]- 7924 Nov, [facility] [place] [facility] [address] [id number] [place] [address]- 4921 Nov, [facility] [place] [facility] [address] [id number] [place] [address]- 3507 Nov, [facility] [place] [facility] [address] [id number] [place] [address]- 5767 Nov, [facility] [place] [facility] [address] [id number] [place] [address]- 8131 Nov, [facility] [place] [facility] [address] [id number] [place] [address]- 4114 Oct, [facility] [place] [facility] [address] [id number] [place] [address]- 4123 Oct, [facility] [place] [facility] [address] [id number] [place] [address]- 5700 September, [facility] [place] [facility] [address] [id number] [place] [address]- 1210 September, [facility] [place] [facility] [address] [id number] [place] [address]- 1573 September, [facility] [place] [facility] [address] [id number] [place] [address]- 2377 September, [facility] [place] [facility] [address] [id number] [place] [address]- 0967 Aug, [facility] [place] [facility] [address] [id number] [place] [address]- 0881 Aug, [facility] [place] [facility] [address] [id number] [place] [address]- 4770 Aug, [facility] [place] [facility] [address] [id number] [place] [address]- 8341 Jul, [facility] [place] [facility] [address] [id number] [place] [address]- 2671 Jul, [facility] [place] [facility] [address] [id number] [place] [address]- 7218 Jul, [facility] [place] [facility] [address] [id number] [place] [address]- 6628 Jul, [facility] [place] [facility] [address] [id number] [place] [address]- 7617 May, [facility] [place] [facility] [address] [id number] [place] [address]- 2912 May, [facility] [place] [facility] [address] [id number] [place] [address]- 3613 May, [facility] [place] [facility] [address] [id number] [place] [address]- 1505 Mar, [facility] [place] [facility] [address] [id number] [place] [address]- 3636 15 Mar, 2013 [facility] [place] [facility] [address] [id number] [place] [address]- 0653 Mar, [facility] [place] [facility] [address] [id number] [place] [address]- 7732 Mar, [facility] [place] [facility] [address] [id number] [place] [address]- 1944 16 Feb, 2013 [facility] [place] [facility] [address] [id number] [place] [address]- 5359 Feb, [facility] [place] [facility] [address] [id number] [place] [address]- 8332 Feb, [facility] [place] [facility] [address] [id number] [place] [address]- 1798 16 Jan, 2013 [facility] [place] [facility] [address] [id number] [place] [address]- 1649 Jan, [facility] [place] [facility] [address] [id number] [place] [address]- 8682 Jan, [facility] [place] [facility] [address] [id number] [place] [address]- 2613 Dec, [facility] [place] [facility] [address] [id number] [place] [address]- 6686 Dec, [facility] [place] [facility] [address] [id number] [place] [address]- 0788 Dec, [facility] [place] [facility] [address] [id number] [place] [address]- 6079 Dec, [facility] [place] [facility] [address] [id number] [place] [address]- 4141 Nov, [facility] [address] [id number] [place] [address]- 1470 Oct, [facility] [place] [facility] [address] [id number] [place] [address]- 1396 Oct, [facility] [address] [id number] [place] [address]- 2134 September, [facility] [address] [id number] [place] [address]- 9281 September, [facility] [address] [id number] [place] [address]- 5649 September, [facility] [address] [id number] [place] [address]- 9740 Aug, [facility] [address] [id number] [place] [address]- 2696 Aug, [facility] [address] [id number] [place] [address]- 4921 Aug, [facility] [address] [id number] [place] [address]- 8363 Aug, [facility] [address] [id number] [place] [address]- 7901 Jul, [facility] [address] [id number] [place] [address]- 9462 Jul, [facility] [place] [facility] [address] [id number] [place] [address]- 2989 Jul, [facility] [place] [facility] [address] [id number] [place] [address]- 1237 15 Jul, 2012 [facility] [place] [facility] [address] [id number] [place] [address] 2543 14 Jul, 2012 [facility] [place] [facility] [address] [id number] [place] [address]- 0514 Jul, [facility] [address] [id number] [place] [address]- 7655 Jul, [facility] [place] [facility] [address] [id number] [place] [address]- 5938 Jun, [facility] [place] [facility] [address] [id number] [place] [address]- 6336 Jun, [facility] [place] [facility] [address] [id number] [place] [address]- 2427 Jun, [facility] [place] [facility] [address] [id number] [place] [address]- 0657 Jun, [facility] [place] [facility] [address] [id number] [place] [address]- 5366 May, [facility] [address] [id number] [place] [address]- 3384 May, [facility] [place] [facility] [address] [id number] [place] [address]- 0843 May, [facility] [address] [id number] [place] [address]- 8794 May, [facility] [place] [facility] [address] [id number] [place] [address]- 2094 May, [facility] [address] [id number] [place] [address]- 3898 Apr, [facility] [place] [facility] [address] [id number] [place] [address]- 5630 Apr, [facility] [place] [facility] [address] [id number] [place] [address]- 8414 Mar, [facility] [place] [facility] [address] [id number] [place] [address]- 3280 Mar, [facility] [place] [facility] [address] [id number] [place] [address]- 1022 Mar, [facility] [place] [facility] [address] [id number] [place] [address]- 5963 Mar, [facility] [place] [facility] [address] [id number] [place] [address]- 6623 Mar, [facility] [place] [facility] [address] [id number] [place] [address]- 5216 Mar, [facility] [place] [facility] [address] [id number] [place] [address]- 8140 Mar, [facility] [place] [facility] [address] [id number] [place] [address]- 6125 Mar, [facility] [place] [facility] [address] [id number] [place] [address]- 7595 Mar, [facility] [place] [facility] [address] [id number] [place] [address]- 6921 Mar, [facility] [place] [facility] [address] [id number] [place] [address]- 7002 Feb, [facility] [place] [facility] [address] [id number] [place] [address]- 9895 Feb, [facility] [place] [facility] [address] [id number] [place] [address]- 5321 Feb, [facility] [place] [facility] [address] [id number] [place] [address]- 2489 Feb, [facility] [place] [facility] [address] [id number] [place] [address]- 8028 Feb, [facility] [place] [facility] [address] [id number] [place] [address]- 9488 Feb, [facility] [place] [facility] [address] [id number] [place] [address]- 9549 Feb, [facility] [place] [facility] [address] [id number] [place] [address]- 3906 Jan, [facility] [place] [facility] [address] [id number] [place] [address]- 5788 Jan, [facility] [place] [facility] [address] [id number] [place] [address]- 4972 Dec, [facility] [place] [facility] [address] [id number] [place] [address]- 7355 Dec, [facility] [place] [facility] [address] [id number] [place] [address]- 4716 Dec, [facility] [place] [facility] [address] [id number] [place] [address]- 5293 Dec, [facility] [place] [facility] [address] [id number] [place] [address]- 2445 Dec, [facility] [place] [facility] [address] [id number] [place] [address]- 9578 Dec, [facility] [place] [facility] [address] [id number] [place] [address]- 3126 Nov, [facility] [place] [facility] [address] [id number] [place] [address]- 1090 Nov, [facility] [place] [facility] [address] [id number] [place] [address]- 7492 Nov, [facility] [place] [facility] [address] [id number] [place] [address]- 2956 Nov, [facility] [place] [facility] [address] [id number] [place] [address] September, [facility] [place] [facility] [address] [id number] [place] [address] September, [facility] [place] [facility] [address] [id number] [place] [address] September, [facility] [place] [facility] [address] [id number] [place] [address] Jul, [facility] [place] [facility] [address] [id number] [place] [address] Jun, [facility] [place] [facility] [address] [id number] [address] Jun, [facility] [id number] [address] Jun, [facility] [id number], [place] [address] Apr, [facility] [id number] [address] Mar, [facility] [id number] [place] [address] Mar, [facility] [id number] [place] [address] Feb, [facility] [id number] [place] [address] Feb, [facility] [id number] [place] [address] Feb, [facility] [address], [place] [address] Jul, [facility] [id number] [address] Feb, IMMUNIZATIONS No Known Immunizations SOCIAL HISTORY Never Assessed REASON FOR VISIT rt. ankle pain-xray done (seen previously for knee) - [facility] PLAN OF CARE Activity Details Follow Up prn Reason: VITAL SIGNS Height 62 in 2017-12-14 Blood pressure systolic 110 mmHg 2017-12-14 Blood pressure diastolic 76 mmHg 2017-12-14 MEDICATIONS Unknown Medications RESULTS No Results PROCEDURES [...]
--- OUTSIDE RECORDS SUMMARY | 2018-05-09 22:47 | XMS REPORT ---
Author Author AMCY TAMAYO Organization [facility] Address [address] [place] [address] Care Team Providers Care Javascript Developer Name Role Phone MACY TAMAYO Unavailable PROBLEMS Type Condition ICD9-CM Code [id number] Code Onset Dates Condition Status SNOMED Code Problem Lumbago with sciatica, left side M54.42 Active 764479070 Problem Tachycardia with heart rate 121-140 beats per minute R00.0 Active 9128894 Problem Controlled type 2 diabetes mellitus without complication, without long -term current use of insulin E11.9 Active 414003473 Problem Gait disturbance R26.9 Active 62658376 Problem Lumbago with sciatica, right side M54.41 Active 641223582 Problem Enlarged thyroid gland E04.9 Active 7972279 Problem Body mass index (BMI) of 45.0-49.9 in adult Z68.42 Active 373503837 Problem Morbid (severe) obesity due to excess calories E66.01 Active 728569537 Problem Dermatomyositis M33.90 Active 806525434 Problem Mood disorder F39 Active 91386882 Problem Diabetes type 2, controlled E11.9 Active 74960798 Problem Menopause Z78.0 Active 953024275 Problem Allergic rhinitis due to pollen J30.1 Active 61137503 Problem Other chronic pain G89.29 Active 68413104 Problem Arthritis M19.90 Active 8468028 Problem Osteoarthritis of right knee, unspecified osteoarthritis type M17.9 Active 317696290 Problem Plantar warts B07.0 Active 91160842 Problem Anxiety F41.9 Active 12235104 Problem Plantar wart of both feet B07.0 Active [id number] ALLERGIES No Information ENCOUNTERS Encounter Location Date Diagnosis [facility] [address] [facility] [id number] [address] Feb, [facility] [address] [facility] [id number] [address] 2865 Jan, [facility] [address] [id number] [place] [address] 65347- 9013 27 Jan, 2018 [facility] [id number] [place] [address] 91162- 7186 17 Jan, 2018 [facility] [id number] [place] [address] 56490- 5816 14 Jan, 2018 [facility] [id number] [place] [address] 07398- 1074 11 Jan, 2018 Dermatomyositis M33.90 [facility] [id number] [place] [address] 21991- 0808 10 Jan, 2018 [facility] [id number] [place] [address] 70047- 5262 05 Jan, 2018 [facility] [id number] [place] [address] 02825- 6558 04 Jan, 2018 Irritation of left eye H57.8 and BMI 40.0-44.9, adult Z68.41 [facility] [id number] [place] [address] 15568- 4028 Dec, Diabetes type 2, controlled E11.9 [facility] [id number] [place] [address] 60722- 9897 Dec, Acute right ankle pain M25.571 [facility] [id number] [place] [address] 13730- 0829 Dec, Other chronic pain G89.29 ; Diabetes type 2, controlled E11.9 ; Gait disturbance R26.9 ; Weakness R53.1 and Muscle spasm M62.838 [facility] [id number] [place] [address] 92064- 0697 Dec, Acute non-recurrent maxillary sinusitis J01.00 [facility] [id number] [place] [address] 70530- 3751 Dec, [facility] [id number] [place] [address] 88124- 1543 Dec, [facility] [id number] [place] [address] 17173- 5105 Dec, Acute non-recurrent maxillary sinusitis J01.00 [facility] [id number] [place] [address] 10336- 9381 Dec, Lumbago with sciatica, right side M54.41 and Lupus erythematosus L93.0 [facility] [id number] [place] [address] 15665- 9822 Dec, Mood disorder F39 [facility] [id number] [place] [address] 68338- 3029 Dec, Mood disorder F39 [facility] [id number] [place] [address] 25723- 8971 Dec, [facility] [id number] [place] [address] 20452- 8656 Dec, Acute right ankle pain M25.571 [facility] [id number] [place] [address] 46492- 0240 Nov, Lumbar radiculopathy M54.16 [facility] [id number] [place] [address] 71753- 7888 Nov, [facility] [address] [place] [address] 21575- 7704 Nov, Mood disorder F39 [facility] [id number] [place] [address] 67971- 3265 Nov, Lumbago with sciatica, right side M54.41 and Other chronic pain G89.29 [facility] [id number] [place] [address] 32964- 6189 Nov, Acute right ankle pain M25.571 [facility] [id number] [place] [address] 61778- 3499 Nov, [facility] [id number] [place] [address] 65589- 9389 Oct, [facility] [id number] [place] [address] 39935- 6203 Oct, Plantar wart of both feet B07.0 [facility] [id number] [place] [address] 97866- 7284 05 Oct, 2017 [facility] [id number] [place] [address] 93510- 4978 Oct, Acute right ankle pain M25.571 and Plantar wart of both feet B07.0 [place] [id number] [place] [address] 35771- 4328 September, Other chronic pain G89.29 [place] [id number] [place] [address] 77448- 6826 September, Other chronic pain G89.29 [place] [id number] [place] [address] 56700- 6360 September, Other chronic pain G89.29 [place] [id number] [place] [address] 91722- 1766 Aug, Mood disorder F39 [place] [id number] [place] [address] 12715- 0767 Aug, Other chronic pain G89.29 ; Controlled type 2 diabetes mellitus without complication, without long-term current use of insulin E11.9 ; Low back pain M54.5 and Tinea corporis B35.4 [place] [address] [place] [address] 88369- 2379 Aug, Mood disorder F39 and Anxiety F41.9 [place] [id number] [place] [address] 00212- 7421 Aug, Mood disorder F39 and Anxiety F41.9 [facility] [address] [place] [address] 91037- 4958 Jul, [facility] [id number] [place] [address] 24942 -8190 13 Jul, 2017 Scabies B86 and BMI 45.0-49.9, adult Z68.42 [place] [id number] [place] [address] 38573- 7696 Jul, [place] [address] 45301- 1909 Jul, Mood disorder F39 and Anxiety F41.9 [place] [address] 50595- 7325 Jul, [facility] [place] [address] 61594 -4493 27 Jun, 2017 Bronchitis J40 ; Dark urine R82.99 and BMI 45.0-49.9, adult Z68.42 [place] [address] 87118- 4228 14 Jun, 2017 Acute pain of right shoulder M25.511 and Acute pain of right knee M25.561 [place] [address] 33309- 5863 May, BMI 40.0-44.9, adult Z68.41 ; Controlled type 2 diabetes mellitus without complication, without long-term current use of insulin E11.9 ; Muscle cramping R25.2 ; Hot flashes R23.2 ; Mood disorder F39 ; Anxiety F41.9 and Morbid (severe) obesity due to excess calories E66.01 [place] [id number] [place] [address] 64608- 9901 May, BMI 40.0-44.9, adult Z68.41 ; Controlled type 2 diabetes mellitus without complication, without long-term current use of insulin E11.9 ; Muscle cramping R25.2 and Hot flashes R23.2 [place] [id number] [place] [address] 31624- 3663 May, Tachycardia with heart rate 121-140 beats per minute R00.0 ; Morbid (severe) obesity due to excess calories E66.01 ; Diabetes type 2, controlled E11.9 and Enlarged thyroid gland E04.[address] 06770- 2920 25 May, 2017 Encounter for well woman [...] Dysuria R30.0 and Screening breast examination Z12.[address] 87515- 0273 Apr, Mood disorder F39 ; Other chronic pain G89.29 and Anxiety F41.[address] 83589- 1881 Apr, Lumbago with sciatica, left side M54.42 and Other chronic pain G89.[address] 07629- 7156 Apr, Lupus erythematosus L93.[address] 88914- 2917 Mar, Plantar wart of both feet B07.[address] 19956- 7650 Mar, Lupus erythematosus L93.0 and Sinus drainage J34.[address] 92040- 0006 Mar, Mood disorder F39 ; Other chronic pain G89.29 and Anxiety F41.[address] 06422- 5317 Mar, Mood disorder F39 ; Arthritis M19.90 and Plantar warts B07.0 [facility] [id number] [place] [address] 87552- 9532 Feb, Lupus erythematosus L93.0 [facility] [id number] [place] [address] 89092- 6639 Feb, Other chronic pain G89.29 [place] [address] 76932- 2261 Feb, Mood disorder F39 and Anxiety F41.9 [place] [address] 19297- 1823 Jan, [place] [address] 53505- 1232 Jan, Mood disorder F39 [place] [address] 18893- 3030 Dec, Nail, ingrown L60.0 [place] [address] 78342- 3350 Dec, Nail, ingrown L60.0 [place] [address] 49021- 8165 Nov, Mood disorder F39 and Anxiety F41.9 [place] [id number] [place] [address] 47675- 3173 Nov, Sinus drainage J34.89 ; Hot flashes R23.2 ; Anxiety F41.9 and Diabetes type 2, controlled E11.9 [place] [id number] [place] [address] 29428- 4997 Nov, Nail, ingrown L60.0 [place] [id number] [place] [address] 02961- 5873 Oct, Anxiety F41.9 and Mood disorder F39 [place] [id number] [place] [address] 32362- 3328 Oct, Nail, ingrown L60.0 and Anxiety F41.9 [facility] [address] [address]- 9233 Oct, Lupus erythematosus L93.0 [facility] [id number] [place] [address] 58972- 3173 September, [facility] [id number] [place] [address] 29049- 4416 September, [facility] [id number] [place] [address] 27166- 8544 September, Lupus erythematosus L93.0 [facility] [id number] [place] [address] 74529- 7646 Aug, [facility] [id number] [place] [address] 75975- 2970 Aug, Mood disorder F39 and Anxiety F41.9 [facility] [id number] [place] [address] 75066- 5577 Aug, Lupus erythematosus L93.0 ; Diabetes type 2, controlled E11.9 and Localized edema R60.0 [facility] [id number] [place] [address] 86107- 1010 Aug, [facility] [id number] [place] [address] 96658- 1362 Jul, Anxiety F41.9 and Mood disorder F39 [facility] [address] [address]- 4735 Jul, Diabetes type 2, controlled E11.9 [facility] [address] [address]- 9602 Jun, Anxiety F41.9 [facility] [address] [address]- 6235 May, [facility] [address] [address]- 6245 May, [facility] [id number] [place] [address] 82450- 4929 May, Nausea R11.0 ; Other chronic pain G89.29 and Pain in right knee M25.561 [place] [id number] [place] [address] 03489- 2047 May, [place] [id number] [place] [address] 14251- 2097 Apr, Tear of medial meniscus of right knee, current, unspecified tear type, subsequent encounter S83.241D and Tear of lateral meniscus of right knee, current, unspecified tear type, subsequent encounter S83.281D [place] [address] 65573- 5425 Apr, Anxiety F41.9 and Mood disorder F39 [place] [id number] [place] [address] 06995- 6459 Apr, Anxiety F41.9 [place] [id number] [place] [address] 36265- 0735 Apr, [place] [id number] [place] [address] 50177- 9307 Mar, [place] [id number] [place] [address] 28954- 3009 Mar, Lupus erythematosus L93.0 and Diabetes type 2, controlled E11.9 [place] [id number] [place] [address] 07292- 5072 Mar, Mood disorder F39 [place] [id number] [place] [address] 86762- 4940 Mar, Tear of lateral meniscus of right knee, current, unspecified tear type, initial encounter S83.281A and Osteoarthritis of right knee, unspecified osteoarthritis type M17.9 [place] [id number] [place] [address] 61429- 1737 02 Mar, 2016 [place] [address] 27772- 3336 Feb, Mood disorder F39 [facility] [address] [address]- 8020 Feb, Rash R21 [facility] [address] [place] [address] 59126- 6046 Feb, [facility] [id number] [place] [address] 66814- 8120 Jan, Other chronic pain G89.29 and Muscle spasm M62.838 [facility] [id number] [place] [address] 31191- 6659 Jan, Mood disorder F39 [facility] [id number] [place] [address] 55911- 6343 Jan, Pain in right knee M25.561 ; Other chronic pain G89.29 and Muscle spasm M62.838 [facility] [id number] [place] [address] 57000- 0383 Dec, [facility] [id number] [place] [address] 52377- 1714 Dec, [facility] [id number] [place] [address] 37000- 7286 Nov, [facility] [id number] [place] [address] 57816- 0777 Nov, Mood disorder F39 [facility] [id number] [place] [address] 64941- 3671 Nov, Diabetes type 2, controlled E11.9 ; Bronchitis J40 ; Edema, unspecified type R60.9 ; Weight gain R63.5 and Right knee pain, unspecified chronicity M25.561 [facility] [address] [place] [address] 87209- 6361 Oct, Mood disorder F39 [facility] [address] [place] [address] 75453- 7468 Oct, Lupus erythematosus L93.0 and Bilateral edema of lower extremity R60.0 [facility] [address] [place] [address] 99193- 2053 Oct, Mood disorder F39 and Anxiety F41.9 [facility] [id number] [place] [address] 06773- 0354 September, Mood disorder F39 ; Anxiety F41.9 and Anger reaction R45.4 [facility] [id number] [place] [address] 29485- 6369 September, Diabetes type 2, controlled E11.9 ; Edema, unspecified type R60.9 and Fatigue, unspecified type R53.83 [facility] [id number] [place] [address] 44125- 1367 Aug, Mood disorder F39 and Generalized anxiety disorder F41.1 [facility] [id number] [place] [address] 28541- 4241 Aug, Diabetes type 2, controlled E11.9 ; Sinusitis J32.9 and Mood disorder F39 [facility] [id number] [place] [address] 46189- 6239 Aug, Lupus erythematosus L93.0 [facility] [id number] [place] [address] 20978- 3926 14 Aug, 2015 [facility] [id number] [place] [address] 90179- 5743 Aug, [facility] [id number] [place] [address] 05279- 0343 Jul, Diabetes type 2, controlled E11.9 [facility] [id number] [place] [address] 60308- 6551 Jul, Mood disorder F39 and Depression F32.9 [facility] [id number] [place] [address] 40123- 9045 Jul, Lupus erythematosus L93.0 and Diabetes type 2, controlled E11.9 [facility] [id number] [address]- 3996 07 Jul, 2015 Mood disorder F39 and Anxiety F41.9 [facility] [address] [place] [address], [place] [address] 2546 Jul, [facility] [address] [address] 2546 Jul, [facility] [id number] [place] [address] 00784 2546 Jun, Mood disorder F39 and Anxiety F41.9 [facility] [address] [place] [address]- 2396 Jun, Mood disorder F39 [facility] [address] [place] [address] 2546 18 Jun, 2015 [facility] [id number] [place] [address] 15 Jun, 2015 [facility] [place] [id number] [address]41 08 Jun, 2015 Mood disorder F39 [facility] [place] [id number] [place] [address], [place] [address] 2546 Jun, [facility] [place] [id number] [address] 2540 May, [facility] [place] [id number] [address] 2548 May, [facility] [place] [id number] [address] 2546 May, [facility] [place] [id number] [place] [address] May, [facility] [place] [id number] [address] May, Anxiety F41.9 ; Dermatomyositis M33.90 and Diabetes type 2, controlled E11.9 [facility] [id number] [address] 07 May, 2016 Sinusitis J32.9 and Cough R05 [facility] [place] [id number] [place] [address]99 May, Mood disorder F39 [facility] [place] [id number] [place] [address]- [address] May, Adjustment disorder with mixed anxiety and depressed mood F43.23 [facility] [place] [id number] [place] [address]- [address] Apr, [facility] [place] [id number] [place] [address]- [address] Apr, [facility] [place] [id number] [place] [address]- 2913 Apr, Generalized anxiety disorder F41.1 and Mood disorder F39 [facility] [place] [id number] [place] [address]- [address] Mar, [facility] [place] [id number] [place] [address] 186[address]- 5382 Mar, [facility] [place] [id number] [place] [address] 60[address]- 3568 Mar, [facility] [place] [id number] [place] [address]- [address]057 Mar, Mood disorder F39 [facility] [place] [id number] [place] [address] 45[address]- [address] Feb, [facility] [place] [id number] [place] [address] 14[address]- 4185 Feb, Diabetes E11.9 and Bronchitis J40 [facility] [place] [id number] [place] [address]- [address]239 Feb, [facility] [id number] [place] [address] 22168- 2866 Feb, [facility] [id number] [place] [address] 08297- 7059 Feb, Major depression, recurrent, full remission F33.42 and KELLY ( generalized anxiety disorder) F41.1 [place] [id number] [place] [address] 30864- 2771 Feb, [place] [id number] [place] [address] 96493- 7023 Feb, Single major depressive episode, in partial or unspecified remission F32.5 [place] [id number] [place] [address] 60314- 1855 Jan, Fatigue 780.79 [place] [id number] [place] [address] 07713- 8169 Jan, [place] [id number] [place] [address] 34826- 5668 Jan, Diabetes with other specified manifestations, type II or unspecified type, not stated as uncontrolled 250.80 [place] [id number] [place] [address] 73439- 3205 Jan, [place] [id number] [place] [address] 17576- 4477 Dec, Hot flashes 627.2 ; Memory loss 780.93 and Joint pain 719.40 [id number] [place] [address] 49552- 5398 Dec, Major depression, recurrent 296.30 ; Generalized anxiety disorder 300.02 ; Adjustment disorder with depressed mood 309.0 and No condition on [place] II V71.09 [place] [id number] [place] [address] 81398- 5096 Dec, [place] [id number] [place] [address] 77565- 9516 Nov, Cognitive and neurobehavioral dysfunction 294.9 ; Major depressive disorder, recurrent episode, moderate degree 296.32 and Anxiety state , unspecified 300.00 [place] [id number] [address] 6753 Nov, [facility] [id number] [place] [address] 75616- 5319 Nov, Bronchitis 490 and Diabetes with other specified manifestations, type II or unspecified type, not stated as uncontrolled 250.80 [place] [id number] [place] [address] 24194- 2475 Nov, Major depressive disorder, recurrent episode, moderate 296.32 and Anxiety disorder, unspecified 300.00 [place] [id number] [place] [address] 83236- 7827 Nov, Anxiety, generalized 300.02 ; Intermittent explosive disorder 312.34 ; No condition on [place] II V71.09 and No condition on axis III V71.09 [place] [id number] [place] [address] 02575- 0180 Oct, Diabetes with other specified manifestations, type II or unspecified type, not stated as uncontrolled 250.80 ; Urinary tract infection, site not specified 599.0 and Bronchitis 490 [place] [id number] [place] [address] 78875- 1284 Oct, Intermittent explosive disorder 312.34 ; Bipolar 1 disorder , depressed, moderate 296.52 ; Major depression, chronic 296.20 ; No condition on [place] II V71.09 and No condition on axis III V71.09 [place] [id number] [place] [address] 22567- 6870 Oct, Major depressive disorder, recurrent episode, moderate 296.32 ; Anxiety state 300.00 ; Cognitive decline 294.9 and No condition on [place] II V71.09 [place] [id number] [place] [address] 70731- 6595 Oct, [place] [id number] [place] [address] 42749- 5314 Oct, Major depressive disorder, recurrent episode, moderate 296.32 ; Anxiety disorder, unspecified 300.00 and Persistent disorder of initiating or maintaining sleep 307.42 [place] [id number] [address]- 9833 September, Diabetes with other specified manifestations, type II or unspecified type, not stated as uncontrolled 250.80 ; Memory loss 780.93 and Cognitive complaints 799.59 [facility] [address] [address] 5327 September, No condition on [place] II V71.09 ; Major depression, recurrent 296.30 and Persistent mood [affective] disorder, unspecified 296.90 [facility] [address] [address]- 1648 Aug, [facility] [id number] [place] [address] 17684- 9945 Aug, [facility] [id number] [place] [address] 84333- 5497 Aug, [facility] [id number] [place] [address] 42584- 2975 Jul, [facility] [address] [address]- 7633 Jul, [facility] [id number] [place] [address] 32123- 2364 Jul, [facility] [address] [address]- 7040 Jul, [facility] [address] [address]- 9109 Jul, [facility] [address] 0110 Jun, [facility] [id number] [place] [address] 081434- 5577 Jun, [facility] [address] 9228 Jun, [facility] [id number] [place] [address] 04552- 8940 Jun, 2014 [facility] [place] [facility] [address] [id number] [place] [address]- 6566 Jun, 2014 [facility] [place] [facility] [address] [id number] [place] [address]- 9043 Jun, 2014 [facility] [place] [facility] [address] [facility] [id number] [place] [address]- 2534 Jun, 2014 [facility] [place] [facility] [address] [id number] [place] [address]- 3392 Jun, 2014 [facility] [place] [facility] [address] [id number] [place] [address]- 6685 Jun, 2014 [facility] [place] [facility] [address] [facility] [id number] [place] [address]- 0523 Jun, 2014 [facility] [place] [facility] [address] [facility] [id number] [place] [address]- 8527 Jun, 2014 [facility] [place] [facility] [address] [facility] [id number] [place] [address]- 5747 Jun, 2014 [facility] [place] [facility] [address] [facility] [id number] [place] [address]- 6072 Jun, 2014 [facility] [place] [facility] [address] [facility] [id number] [place] [address]- 1997 May, [facility] [place] [facility] [address] [facility] [id number] [place] [address]- 3449 May, [facility] [place] [facility] [address] [facility] [id number] [place] [address]- 5041 Apr, [facility] [place] [facility] [address] [id number] [place] [address]- 5025 Apr, [facility] [place] [facility] [address] [facility] [id number] [place] [address]- 8814 Apr, [facility] [place] [facility] [address] [facility] [id number] [place] [address]- 8674 Apr, [facility] [place] [facility] [address] [id number] [place] [address]- 5386 Apr, [facility] [place] [facility] [address] [id number] [place] [address]- 6856 Apr, [facility] [place] [facility] [address] [id number] [place] 3202 Apr, [facility] [place] [facility] [address] [id number] [place] [address]- 7506 Apr, [facility] [place] [facility] [address] [id number] [place] [address]- 6355 Apr, [facility] [place] [facility] [address] [id number] [place] [address]- 4215 Apr, [facility] [place] [facility] [address] [id number] [place] [address]- 9407 Apr, [facility] [place] [facility] [address] [id number] [place] [address]- 7740 Apr, [facility] [place] [facility] [address] [id number] [place] [address]- 9865 Apr, [facility] [place] [facility] [address] [id number] [place] [address]- 1780 Apr, [facility] [place] [facility] [address] [id number] [place] [address]- 7097 Apr, [facility] [place] [facility] [address] [id number] [place] [address]- 3005 Apr, [facility] [place] [facility] [address] [id number] [place] [address]- 4622 Apr, [facility] [place] [facility] [address] [id number] [place] 2226 Apr, [facility] [place] [facility] [address] [id number] [place] [address]- 4889 Apr, [facility] [place] [facility] [address] [id number] [address]- 9056 Apr, [facility] [place] [facility] [address] [id number] [place] [address]- 1625 Mar, [facility] [place] [facility] [address] [id number] [address]- 6770 Mar, [facility] [place] [facility] [address] [id number] [place] [address]- 9123 Mar, [facility] [place] [facility] [address] [id number] [place] [address]- 3846 Mar, [facility] [place] [facility] [address] [id number] [place] [address]- 1279 Mar, [facility] [place] [facility] [address] [id number] [place] [address]- 5118 Mar, [facility] [place] [facility] [address] [id number] [place] [address]- 9606 Mar, [facility] [place] [facility] [address] [id number] [place] [address]- 1070 Mar, [facility] [place] [facility] [address] [id number] [address]- 8991 Mar, [facility] [place] [facility] [address] [id number] [address]- 1844 Mar, [facility] [place] [facility] [address] [id number] [address]- 5351 Mar, [facility] [place] [facility] [address] [id number] [address]- 4392 Mar, [facility] [place] [facility] [address] [id number] [address]- 7192 Mar, [facility] [place] [facility] [address] [id number] [address]- 7401 Feb, [facility] [place] [facility] [address] [id number] [place] [address]- 4598 Feb, [facility] [place] [facility] [address] [id number] [place] [address]- 3238 30 Feb, 2013 [facility] [place] [facility] [address] [id number] [place] [address]- 7962 Feb, 2013 [facility] [place] [facility] [address] [id number] [place]- 0443 Feb, 2013 [facility] [place] [facility] [address] [id number] [place] [address]- 7536 Feb, 2013 [facility] [place] [facility] [address] [id number] [place] [address]- 6821 Feb, [facility] [place] [facility] [address] [id number] [place] 4014 Feb, [facility] [place] [facility] [address] [id number] [place] [address]- 3489 Feb, [facility] [place] [facility] [address] [id number] [place] [address]- 0791 Feb, 2013 [facility] [place] [facility] [address] [id number] [place] [address]- 2683 Feb, [facility] [place] [facility] [address] [id number] [place] [address]- 2930 Feb, [facility] [place] [facility] [address] [id number] [place] [address]- 7513 10 Feb, 2014 [facility] [place] [facility] [address] [id number] [place] [address]- 5561 07 Feb, 2013 [facility] [place] [facility] [address] [id number] [place] [address]- 9028 07 Feb, 2013 [facility] [place] [facility] [address] [id number] [place] [address]- 0338 10 Jan, 2013 [facility] [place] [facility] [address] [id number] [place] [address]- 2546 08 Jan, 2013 [facility] [place] [facility] [address] [id number] [place] [address]- 7781 Jan, [facility] [place] [facility] [address] [id number] [place] [address]- 6062 Jan, [facility] [place] [facility] [address] [id number] [place] [address]- 9332 Jan, [facility] [place] [facility] [address] [id number] [place] [address]- 3126 Dec, [facility] [place] [facility] [address] [id number] [place] [address]- 0164 Dec, [facility] [place] [facility] [address] [id number] [place] [address]- 2573 Dec, [facility] [place] [facility] [address] [id number] [place] [address]- 6475 Dec, [facility] [place] [facility] [address] [id number] [place] [address]- 9363 Nov, [facility] [place] [facility] [address] [id number] [place] [address]- 3090 Nov, [facility] [place] [facility] [address] [id number] [place] [address]- 7447 Nov, [facility] [place] [facility] [address] [id number] [place] [address]- 2946 Nov, [facility] [place] [facility] [address] [id number] [place] [address]- 8175 Nov, [facility] [place] [facility] [address] [id number] [place] [address]- 8219 Nov, [facility] [place] [facility] [address] [id number] [place] [address]- 5989 Nov, [facility] [place] [facility] [address] [id number] [place] [address]- 1028 Nov, [facility] [place] [facility] [address] [id number] [place] [address]- 1725 Nov, [facility] [place] [facility] [address] [id number] [place] [address]- 2182 Nov, [facility] [place] [facility] [address] [id number] [place] [address]- 3716 Oct, [facility] [place] [facility] [address] [id number] [place] [address]- 5314 Oct, [facility] [place] [facility] [address] [id number] [place] [address]- 3276 September, [facility] [place] [facility] [address] [id number] [place] [address]- 1432 September, [facility] [place] [facility] [address] [id number] [place] [address]- 9308 September, [facility] [place] [facility] [address] [id number] [place] [address]- 3796 September, [facility] [place] [facility] [address] [id number] [place] [address]- 5804 Aug, [facility] [place] [facility] [address] [id number] [place] [address]- 2142 Aug, [facility] [place] [facility] [address] [id number] [place] [address]- 7326 Aug, [facility] [place] [facility] [address] [id number] [place] [address]- 0109 Jul, [facility] [place] [facility] [address] [id number] [place] [address]- 6621 24 Jul, 2013 [facility] [place] [facility] [address] [id number] [place] [address]- 5960 Jul, [facility] [place] [facility] [address] [id number] [place] [address]- 9138 Jul, [facility] [place] [facility] [address] [id number] [place] [address]- 1931 May, [facility] [place] [facility] [address] [id number] [place] [address]- 3846 May, [facility] [place] [facility] [address] [id number] [place] [address]- 3782 May, [facility] [place] [facility] [address] [id number] [place] [address]- 2467 15 Mar, 2013 [facility] [place] [facility] [address] [id number] [place] [address]- 1891 15 Mar, 2013 [facility] [place] [facility] [address] [id number] [place] [address]- 0132 Mar, [facility] [place] [facility] [address] [id number] [place] [address]- 4496 Mar, [facility] [place] [facility] [address] [id number] [place] [address]- 6937 16 Feb, 2013 [facility] [place] [facility] [address] [id number] [place] [address]- 9479 16 Feb, 2013 [facility] [place] [facility] [address] [id number] [place] [address]- 8124 Feb, [facility] [place] [facility] [address] [id number] [place] [address]- 7424 16 Jan, 2013 [facility] [place] [facility] [address] [id number] [place] [address]- 3208 Jan, [facility] [place] [facility] [address] [id number] [place] [address]- 0992 Jan, [facility] [place] [facility] [address] [id number] [place] [address]- 0214 Dec, [facility] [place] [facility] [address] [id number] [place] [address]- 8736 Dec, [facility] [place] [facility] [address] [id number] [place] [address]- 4311 Dec, [facility] [place] [facility] [address] [id number] [place] [address]- 7841 Dec, [facility] [place] [facility] [address] [id number] [place] [address]- 6242 Nov, [facility] [address] [id number] [place] [address]- 9872 Oct, [facility] [place] [facility] [address] [id number] [place] [address]- 2699 Oct, [facility] [address] [id number] [place] [address]- 0067 September, [facility] [place] [facility] [address] [id number] [place] [address]- 9683 September, [facility] [address] [id number] [place] [address]- 9368 September, [facility] [address] [id number] [place] [address]- 0659 Aug, [facility] [address] [id number] [place] [address]- 1981 Aug, [facility] [place] [facility] [address] [id number] [place] [address]- 0710 Aug, [facility] [address] [id number] [place] [address]- 3319 Aug, [facility] [place] [facility] [address] [id number] [place] [address]- 0613 Jul, [facility] [place] [facility] [address] [id number] [place] [address]- 8528 Jul, [facility] [place] [facility] [address] [id number] [address]- 7536 21 Jul, 2012 [facility] [place] [facility] [address] [id number] [place] [address]- 3014 15 Jul, 2012 [facility] [place] [facility] [address] [id number] [place] [address]- 1679 14 Jul, 2012 [facility] [place] [facility] [address] [id number] [place] [address]- 4894 13 Jul, 2012 [facility] [place] [facility] [address] [id number] [place] [address]- 1445 Jul, [facility] [address] [id number] [place] [address]- 0246 Jun, 2012 [facility] [place] [facility] [address] [id number] [place] [address] 2546 Jun, 2012 [facility] [address] [id number] [place] [address]- 2466 Jun, [facility] [place] [facility] [address] [id number] [place] [address]- 5194 Jun, [facility] [address] [id number] [place] [address]- 1664 May, [facility] [address] [id number] [place] [address]- 6974 May, [facility] [address] [id number] [place] [address]- 6206 May, [facility] [address] [id number] [place] [address]- 1158 May, [facility] [address] [id number] [place] [address]- 3180 May, [facility] [address] [id number] [place] [address]- 7505 Apr, [facility] [address] [id number] [place] [address]- 0424 Apr, [facility] [address] [id number] [place] [address] Mar, [facility] [place] [facility] [address] [id number] [place] [address] Mar, [facility] [place] [facility] [address] [id number] [place] [address] Mar, [facility] [place] [facility] [address] [id number] [place] [address] Mar, [facility] [place] [facility] [address] [id number] [place] [address] Mar, [facility] [place] [facility] [address] [id number] [place] [address] Mar, [facility] [place] [facility] [address] [id number] [place] [address] Mar, [facility] [place] [facility] [address] [id number] [place] [address] Mar, [facility] [place] [facility] [address] [id number] [place] [address] Mar, [facility] [place] [facility] [address] [id number] [place] [address] Mar, [facility] [place] [facility] [address] [id number] [place] [address] Feb, [facility] [place] [facility] [address] [id number] [place] [address] Feb, [facility] [place] [facility] [address] [id number] [place] [address] Feb, [facility] [place] [facility] [address] [id number] [place] [address] Feb, [facility] [place] [facility] [address] [id number] [place] [address] Feb, [facility] [place] [facility] [address] [id number] [place] [address] Feb, [facility] [place] [facility] [address] [id number] [place] [address] Feb, [facility] [place] [facility] [address] [id number] [place] [address] Jan, [facility] [place] [facility] [address] [id number] [place] [address] Jan, [facility] [place] [facility] [address] [id number] [place] [address] Dec, [facility] [place] [facility] [address] [id number] [place] [address] Dec, [facility] [place] [facility] [address] [id number] [place] [address] Dec, [facility] [place] [facility] [address] [id number] [place] [address] Dec, [facility] [place] [facility] [address] [id number] [place] [address] Dec, [facility] [place] [facility] [address] [id number] [place] [address] Dec, [facility] [place] [facility] [address] [id number] [place] [address] Nov, [facility] [place] [facility] [address] [id number] [place] [address] Nov, [facility] [place] [facility] [address] [id number] [place] [address] Nov, [facility] [place] [facility] [address] [id number] [place] [address] Nov, [facility] [place] [facility] [address] [id number] [place] [address] September, [facility] [place] [facility] [address] [id number] [place] [address] September, [facility] [place] [facility] [address] [id number] [place] [address] September, [facility] [place] [facility] [address] [id number] [place] [address] Jul, [facility] [place] [facility] [address] [id number] [place] [address] Jun, [facility] [place] [facility] [address] [id number] [place] [address] Jun, [facility] [address] [id number] [address] 13 Jun, 2011 [facility] [id number] [place] [address] 14 Apr, 2011 [facility] [place] [id number] [place] [address] Mar, [facility] [id number] [place] [address] Mar, [facility] [id number] [place] [address] [address] Feb, [facility] [place] [id number] [place] [address] [address] Feb, [facility] [id number] [place] [address] Feb, [facility] [id number] [place] [address] Jul, [facility] [address] [id number] [address] Feb, IMMUNIZATIONS No Known Immunizations SOCIAL HISTORY Never Assessed REASON FOR VISIT Controlled Med Refill PLAN OF CARE VITAL SIGNS MEDICATIONS Medication Instructions Dosage Frequency Start Date End Date Duration Status [place] 7.5-325 MG Orally every 6 hrs 1 tablet as needed 6h Dec, Active RESULTS No Results PROCEDURES No Known [...]
[2018-05-09 22:54] LABS: ALBUMIN 3.8 GM/DL (3.2-4.5); BILIRUBIN,TOTAL 0.3 MG/DL (0.1-1.0); CALCIUM 9.6 MG/DL (8.5-10.1); CREATININE SERUM 1.6 MG/DL (0.60-1.30); MAGNESIUM 2.1 MG/DL (1.8-2.4); POTASSIUM 4.9 MMOL/L (3.6-5.0); TOTAL PROTEIN 7.2 GM/DL (6.4-8.2)
[2018-05-09 22:56] LABS: BACTERIA,URINE FEW /HPF; SQUAMOUS EPITHELIAL CELL,UR 0-2 /HPF; TRICHOMONAS,URINE FEW /HPF; WBC,URINE >100 /HPF
[2018-05-09] MEDS ORDERED: cefTRIAXone FOR IV USE 1,000 MG in NS (IVPB) 50 ML IV ONE (23:15)
[2018-05-09] MEDS ORDERED: metroNIDAZOLE 500 MG (FLAGYL) TAB PO ONE (23:15)
--- OUTSIDE RECORDS SUMMARY | 2018-05-09 23:17 | XMS REPORT ---
Author Author MACY TAMAYO [facility] Address [address] [place] [address] Care Team Providers Care Cash Processing Specialist Name Role Phone MACY TAMAYO Unavailable PROBLEMS Type Condition ICD9-CM Code UYA48-UK Code Onset Dates Condition Status SNOMED Code Problem Tachycardia with heart rate 121-140 beats per minute R00.0 Active 0323317 Problem Enlarged thyroid gland E04.9 Active 2071502 Problem Body mass index (BMI) of 45.0-49.9 in adult Z68.42 Active 117755900 Problem Other specified mental disorders due to known physiological condition F06.8 Active 16802939 Problem Mood disorder F39 Active 83771289 Problem Frequent falls R29.6 Active 844590627 Problem Allergic rhinitis due to pollen J30.1 Active 84065627 Problem Menopause Z78.0 Active 572167196 Problem Lumbago with sciatica, right side M54.41 Active 821581917 Problem Dermatomyositis M33.90 Active 319961458 Problem Facial droop R29.810 Active 16540029 Problem Gait disturbance R26.9 Active 92760263 Problem Anxiety F41.9 Active 69355953 Problem Other chronic pain G89.29 Active 84012407 Problem Diabetes type 2, controlled E11.9 Active 67210467 Problem Osteoarthritis of right knee, unspecified osteoarthritis type M17.9 Active 684344793 Problem Plantar wart of both feet B07.0 Active [id number] Problem Lumbago with sciatica, left side M54.42 Active 913430568 Problem Arthritis M19.90 Active 2416967 Problem Controlled type 2 diabetes mellitus without complication, without long -term current use of insulin E11.9 Active 513206882 Problem Plantar warts B07.0 Active 60428438 Problem Morbid (severe) obesity due to excess calories E66.01 Active 747373984 ALLERGIES Substance Reaction Event Type Date Status Fluarix Quadrivalent vomiting Drug Allergy Jan, Active Zoloft makes very angry Drug Allergy Jan, Active Fluarix vomiting Drug Allergy Jan, Active Aspirin rash Drug Allergy Jan, Active Latex, Natural Rubber rash Non Drug Allergy Jan, Active ENCOUNTERS Encounter Location Date Diagnosis [facility] [id number] [place] [address] 56150- 0450 Mar, [facility] [id number] [place] [address] 25229- 0282 Feb, [facility] [address] 55626- 0471 Feb, [facility] [id number] [place] [address] 68474- 1622 Feb, [facility] [id number] [place] [address] 81400- 2213 Feb, BMI 45.0-49.9, adult Z68.42 ; Gait disturbance R26.9 ; Other specified mental disorders due to known physiological condition F06.8 ; Weakness R53.1 ; Frequent falls R29.6 and Self-care deficit for bathing R46.0 [facility] [id number] [place] [address] 21410- 3707 Feb, [facility] [id number] [place] [address] 72020- 2652 Jan, Mood disorder F39 [facility] [id number] [place] [address] 41865- 0862 Jan, BMI 45.0-49.9, adult Z68.42 and 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 [facility] [id number] [address] 2263 Jan, [facility] [id number] [place] [address] 75304- 2336 Jan, [facility] [id number] [place] [address] 95560- 9646 Jan, [facility] [address] [place] [address] 7717 Jan, 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 [facility] [address] 73964- 4312 Jan, [facility] [id number] [place] [address] 57795- 6396 Jan, [place] [address] 21798- 5075 Jan, [place] [address] 41675- 0342 19 Jan, 2018 Allergic reaction to drug, initial encounter T78.40XA [place] [address] 61813- 5104 17 Jan, 2018 BMI 45.0-49.9, adult Z68.42 and Facial droop R29.810 [place] [address] 02796- 2206 14 Jan, 2018 Mood disorder F39 [place] [address] 72672- 2959 11 Jan, 2018 Dermatomyositis M33.90 and BMI 40.0-44.9, adult Z68.41 [place] [id number] [place] [address] 10377- 2675 10 Jan, 2018 [place] [id number] [place] [address] 46600- 2626 05 Jan, 2018 [place] [id number] [place] [address] 83075- 3437 04 Jan, 2018 Irritation of left eye H57.8 and BMI 40.0-44.9, adult Z68.41 [place] [id number] [place] [address] 72667- 4507 Dec, Diabetes type 2, controlled E11.9 [place] [address] 89861- 9293 Dec, Acute right ankle pain M25.571 [facility] [id number] [place] [address] 48065- 3009 Dec, Other chronic pain G89.29 ; Diabetes type 2, controlled E11.9 ; Gait disturbance R26.9 ; Weakness R53.1 and Muscle spasm M62.838 [facility] [id number] [place] [address] 14078- 2502 Dec, Acute non-recurrent maxillary sinusitis J01.00 [facility] [id number] [place] [address] 80404- 5165 Dec, [facility] [address] 21455- 5879 Dec, [facility] [address] 52665- 0549 Dec, Acute non-recurrent maxillary sinusitis J01.00 [facility] [id number] [place] [address] 31480- 7573 Dec, Lumbago with sciatica, right side M54.41 and Lupus erythematosus L93.0 [facility] [id number] [place] [address] 51094- 7393 Dec, Mood disorder F39 [facility] [address] 34508- 5397 Dec, Mood disorder F39 [facility] [address] 26658- 2208 Dec, [facility] [id number] [place] [address] 06020- 4648 Dec, Acute right ankle pain M25.571 [facility] [id number] [place] [address] 48094- 9453 Nov, Lumbar radiculopathy M54.16 [facility] [address] 89520- 4113 Nov, [facility] [id number] [address]- 3193 Nov, Mood disorder F39 [facility] [id number] [place] [address] 99638- 2558 Nov, Lumbago with sciatica, right side M54.41 and Other chronic pain G89.29 [facility] [id number] [place] [address] 51833- 1634 Nov, Acute right ankle pain M25.571 [facility] [id number] [place] [address] 48102- 2410 Nov, [facility] [id number] [place] [address] 79557- 1195 Oct, [facility] [id number] [place] [address] 54980- 7862 Oct, Plantar wart of both feet B07.0 [facility] [id number] [place] [address] 79049- 8750 Oct, [facility] [id number] [place] [address] 16169- 2490 Oct, Acute right ankle pain M25.571 and Plantar wart of both feet B07.0 [facility] [id number] [address]- 0448 September, Other chronic pain G89.29 [facility] [id number] [place] [address] 19111- 2328 September, Other chronic pain G89.29 [facility] [id number] [place] [address] 76461- 5702 September, Other chronic pain G89.29 [facility] [id number] [address]- 3143 Aug, Mood disorder F39 [facility] [id number] [place] [address] 09772- 2426 Aug, Other chronic pain G89.29 ; Controlled type 2 diabetes mellitus without complication, without long-term current use of insulin E11.9 ; Low back pain M54.5 and Tinea corporis B35.4 [place] [address] 09355- 4120 Aug, Mood disorder F39 and Anxiety F41.9 [place] [address] 93824- 3585 Aug, Mood disorder F39 and Anxiety F41.9 [place] [address] 21792- 3097 Jul, [facility] [address] 69783 -7806 Jul, Scabies B86 and BMI 45.0-49.9, adult Z68.[address] 42596- 7482 Jul, [place] [address] 69784- 4135 Jul, Mood disorder F39 and Anxiety F41.9 [place] [address] 88108- 0595 Jul, [facility] [place] [address] 40416 -8755 27 Jun, 2017 Bronchitis J40 ; Dark urine R82.99 and BMI 45.0-49.9, adult Z68.42 [place] [address] 08443- 2760 14 Jun, 2017 Acute pain of right shoulder M25.511 and Acute pain of right knee M25.561 [place] [address] 50932- 5368 May, BMI 40.0-44.9, adult Z68.41 ; Controlled type 2 diabetes mellitus without complication, without long-term current use of insulin E11.9 ; Muscle cramping R25.2 ; Hot flashes R23.2 ; Mood disorder F39 ; Anxiety F41.9 and Morbid (severe) obesity due to excess calories E66.01 [place] [id number] [place] [address] 01934- 5213 May, BMI 40.0-44.9, adult Z68.41 ; Controlled type 2 diabetes mellitus without complication, without long-term current use of insulin E11.9 ; Muscle cramping R25.2 and Hot flashes R23.2 [place] [address] 89737- 9235 May, Tachycardia with heart rate 121-140 beats per minute R00.0 ; Morbid (severe) obesity due to excess calories E66.01 ; Diabetes type 2, controlled E11.9 and Enlarged thyroid gland E04.[address] 98179- 1402 May, Encounter for well woman exam with [...] Dysuria R30.0 and Screening breast examination Z12.31 [place] [id number] [place] [address] 84846- 4657 Apr, Mood disorder F39 ; Other chronic pain G89.29 and Anxiety F41.[address] 30448- 3673 Apr, Lumbago with sciatica, left side M54.42 and Other chronic pain G89.29 [place] [id number] [place] [address] 88797- 1273 Apr, Lupus erythematosus L93.0 [place] [id number] [place] [address] 09370 2546 Mar, Plantar wart of both feet B07.0 [facility] [id number] [place] [address] 89207 2546 Mar, Lupus erythematosus L93.0 and Sinus drainage J34.89 [facility] [id number] [place] [address] 00550 2546 Mar, Mood disorder F39 ; Other chronic pain G89.29 and Anxiety F41.9 [facility] [id number] [place] [address] 06710 2546 Mar, Mood disorder F39 ; Arthritis M19.90 and Plantar warts B07.0 [facility] [id number] [place] [address] 73365 2546 Feb, Lupus erythematosus L93.0 [facility] [id number] [place] [address] 15817- 6826 Feb, Other chronic pain G89.29 [facility] [id number] [place] [address] 40881 2546 Feb, Mood disorder F39 and Anxiety F41.9 [facility] [id number] [place] [address] 73259- 0746 Jan, [facility] [id number] [place] [address] 24227- 9996 Jan, Mood disorder F39 [facility] [id number] [place] [address] 78400 2540 Dec, Nail, ingrown L60.0 [facility] [id number] [place] [address] 09322- 2056 Dec, Nail, ingrown L60.0 [facility] [id number] [place] [address] 18869- 5923 Nov, Mood disorder F39 and Anxiety F41.9 [facility] [id number] [place] [address] 97485- 1815 Nov, Sinus drainage J34.89 ; Hot flashes R23.2 ; Anxiety F41.9 and Diabetes type 2, controlled E11.9 [facility] [id number] [place] [address] 55714- 7992 Nov, Nail, ingrown L60.0 [facility] [id number] [place] [address] 95317- 8663 Oct, Anxiety F41.9 and Mood disorder F39 [facility] [id number] [place] [address] 41100- 3416 Oct, Nail, ingrown L60.0 and Anxiety F41.9 [facility] [id number] [place] [address] 18270- 0620 Oct, Lupus erythematosus L93.0 [facility] [id number] [place] [address] 69340- 1518 September, [facility] [id number] [place] [address] 01324- 6402 September, [facility] [id number] [place] [address] 38919- 1504 September, Lupus erythematosus L93.0 [facility] [id number] [place] [address] 61763- 2197 Aug, [facility] [id number] [place] [address] 83072- 8019 Aug, Mood disorder F39 and Anxiety F41.9 [facility] [id number] [place] [address] 48196- 6919 Aug, Lupus erythematosus L93.0 ; Diabetes type 2, controlled E11.9 and Localized edema R60.0 [facility] [id number] [place] [address] 75413- 0386 Aug, [facility] [id number] [place] [address] 18544- 4000 Jul, Anxiety F41.9 and Mood disorder F39 [place] [id number] [place] [address] 28614- 6488 10 Jul, 2016 Diabetes type 2, controlled E11.9 [facility] [id number] [place] [address] 56371- 5905 13 Jun, 2016 Anxiety F41.9 [place] [address] 34910- 6138 May, [place] [id number] [place] [address] 77026- 6217 May, [place] [address] 64314- 8894 May, Nausea R11.0 ; Other chronic pain G89.29 and Pain in right knee M25.561 [place] [address] 26360- 4727 May, [place] [id number] [place] [address] 16067- 9854 Apr, Tear of medial meniscus of right knee, current, unspecified tear type, subsequent encounter S83.241D and Tear of lateral meniscus of right knee, current, unspecified tear type, subsequent encounter S83.281D [place] [id number] [place] [address] 33392- 3349 Apr, Anxiety F41.9 and Mood disorder F39 [place] [id number] [place] [address] 94174- 2557 Apr, Anxiety F41.9 [place] [id number] [place] [address] 18417- 9823 Apr, [facility] [id number] [place] [address] 40795- 4101 Mar, [place] [id number] [place] [address] 43567- 7320 Mar, Lupus erythematosus L93.0 and Diabetes type 2, controlled E11.9 [facility] [id number] [place] [address] 34852- 1319 Mar, Mood disorder F39 [facility] [id number] [place] [address] 03325- 2197 Mar, Tear of lateral meniscus of right knee, current, unspecified tear type, initial encounter S83.281A and Osteoarthritis of right knee, unspecified osteoarthritis type M17.9 [facility] [id number] [place] [address] 10257- 4324 Mar, [facility] [id number] [place] [address] 15053- 4952 Feb, Mood disorder F39 [facility] [id number] [place] [address] 53213- 4426 Feb, Rash R21 [facility] [id number] [place] [address] 42585- 8281 Feb, [facility] [id number] [place] [address] 02469- 3201 Jan, Other chronic pain G89.29 and Muscle spasm M62.838 [facility] [id number] [place] [address] 98884- 0411 Jan, Mood disorder F39 [facility] [id number] [place] [address] 24560- 1335 Jan, Pain in right knee M25.561 ; Other chronic pain G89.29 and Muscle spasm M62.838 [facility] [id number] [place] [address] 06588- 4066 Dec, [facility] [id number] [place] [address] 07995- 5726 Dec, [facility] [id number] [place] [address] 09980- 8282 Nov, [facility] [id number] [place] [address] 78592- 1865 Nov, Mood disorder F39 [place] [id number] [place] [address] 93708- 4764 Nov, Diabetes type 2, controlled E11.9 ; Bronchitis J40 ; Edema, unspecified type R60.9 ; Weight gain R63.5 and Right knee pain, unspecified chronicity M25.561 [place] [id number] [place] [address] 03962- 8419 Oct, Mood disorder F39 [place] [id number] [place] [address] 13408- 7278 Oct, Lupus erythematosus L93.0 and Bilateral edema of lower extremity R60.0 [place] [id number] [place] [address] 75927- 4337 Oct, Mood disorder F39 and Anxiety F41.9 [place] [id number] [place] [address] 84916- 6788 September, Mood disorder F39 ; Anxiety F41.9 and Anger reaction R45.4 [place] [id number] [place] [address] 80471- 8935 September, Diabetes type 2, controlled E11.9 ; Edema, unspecified type R60.9 and Fatigue, unspecified type R53.83 [place] [id number] [place] [address] 83015- 3037 Aug, Mood disorder F39 and Generalized anxiety disorder F41.1 [place] [id number] [place] [address] 72622- 5471 Aug, Diabetes type 2, controlled E11.9 ; Sinusitis J32.9 and Mood disorder F39 [place] [id number] [place] [address] 84511- 2228 Aug, Lupus erythematosus L93.0 [place] [id number] [place] [address] 43874- 9223 14 Aug, 2015 [facility] [id number], [place] [address]- 2233 07 Aug, 2015 [facility] [id number] [place] [address] 64021- 6486 Jul, Diabetes type 2, controlled E11.9 [facility] [id number] [place] [address] 39534 2546 Jul, Mood disorder F39 and Depression F32.9 [facility] [id number] [place] [address] 38443- 3166 Jul, Lupus erythematosus L93.0 and Diabetes type 2, controlled E11.9 [facility] [id number] [place] [address] 87638- 2415 Jul, Mood disorder F39 and Anxiety F41.9 [facility] [id number] [place] [address] 37957- 3287 Jul, [facility] [id number] [place] [address] 95356- 6185 Jul, [facility] [id number] [place] [address] 35905- 0134 Jun, Mood disorder F39 and Anxiety F41.9 [facility] [id number], [place] [address]- 2946 Jun, Mood disorder F39 [facility] [id number] [place] [address] 97406- 6306 Jun, [facility] [address], [place] [address]- 2121 Jun, [facility] [id number] [place] [address] 37451- 2187 08 Jun, 2015 Mood disorder F39 [facility] [address], [place] [address]- 8226 Jun, [facility] [id number] [address]- 9800 May, [facility] [id number] [place] [address] 65402- 2889 May, [facility] [id number] [place] [address] 63973- 5905 May, [facility] [id number] [place] [address] 09861- 4844 May, [facility] [id number] [place] [address] 92193- 9577 May, Anxiety F41.9 ; Dermatomyositis M33.90 and Diabetes type 2, controlled E11.9 [facility] [id number] [place] [address] 14891 -7818 May, Sinusitis J32.9 and Cough R05 [facility] [id number] [place] [address] 01885- 3269 May, Mood disorder F39 [facility] [id number] [place] [address] 51085- 2520 May, Adjustment disorder with mixed anxiety and depressed mood F43.23 [facility] [id number] [place] [address] 98907- 0819 Apr, [facility] [id number] [place] [address] 12007- 9288 Apr, [facility] [id number] [place] [address] 45652- 2157 Apr, Generalized anxiety disorder F41.1 and Mood disorder F39 [facility] [id number] [place] [address] 02957- 0281 Mar, [facility] [id number] [place] [address] 95172- 3626 Mar, [facility] [id number] [place] [address] 38592- 8468 Mar, [facility] [id number] [place] [address] 14129- 5414 Mar, Mood disorder F39 [place] [id number] [place] [address] 96618- 5778 Feb, [facility] [id number] [place] [address] 77839- 2431 Feb, Diabetes E11.9 and Bronchitis J40 [place] [address] 50526- 2636 Feb, [place] [facility] [id number] [place] [address] 50984- 3182 Feb, [place] [facility] [id number] [place] [address] 75532- 9230 Feb, Major depression, recurrent, full remission F33.42 and KELLY ( generalized anxiety disorder) F41.1 [place] [id number] [place] [address] 27573- 8795 Feb, [facility] [id number] [place] [address] 76240- 5294 Feb, Single major depressive episode, in partial or unspecified remission F32.5 [place] [facility] [id number] [place] [address] 67713- 3275 Jan, Fatigue 780.79 [place] [id number] [place] [address] 50017- 4553 Jan, [place] [facility] [id number] [place] [address] 33929- 2647 Jan, Diabetes with other specified manifestations, type II or unspecified type, not stated as uncontrolled 250.80 [place] [facility] [id number] [place] [address] [id number]- 4073 Jan, [facility] [id number] [place] [address] 51452- 6335 Dec, Hot flashes 627.2 ; Memory loss 780.93 and Joint pain 719.40 [place] [address] [address] Dec, Major depression, recurrent 296.30 ; Generalized anxiety disorder 300.02 ; Adjustment disorder with depressed mood 309.0 and No condition on [place] II V71.09 [place] [id number] [place] [address] 03926- 8375 Dec, [place] [facility] [id number] [place] [address] 79653- 1572 Nov, Cognitive and neurobehavioral dysfunction 294.9 ; Major depressive disorder, recurrent episode, moderate degree 296.32 and Anxiety state , unspecified 300.[address] [place] [id number] [place] [address] 28983- 6391 Nov, [place] [id number] [place] [address] 12719- 9877 Nov, Bronchitis 490 and Diabetes with other specified manifestations, type II or unspecified type, not stated as uncontrolled 250.80 [id number] [place] [address] 43010- 6376 Nov, Major depressive disorder, recurrent episode, moderate 296.32 and Anxiety disorder, unspecified 300.00 [place] [id number] [place] [address] 67376- 1693 Nov, Anxiety, generalized 300.02 ; Intermittent explosive disorder 312.34 ; No condition on Ringgold II V71.09 and No condition on axis III V71.09 [place] [id number] [place] [address] 18936- 0523 Oct, Diabetes with other specified manifestations, type II or unspecified type, not stated as uncontrolled 250.80 ; Urinary tract infection, site not specified 599.0 and Bronchitis 490 [place] [id number] [place] [address] 45960- 8442 Oct, Intermittent explosive disorder 312.34 ; Bipolar 1 disorder , depressed, moderate 296.52 ; Major depression, chronic 296.20 ; No condition on Ringgold II V71.09 and No condition on axis III V71.09 [facility] [id number] [address] 15 Oct, 2014 Major depressive disorder, recurrent episode, moderate 296.32 ; Anxiety state 300.00 ; Cognitive decline 294.9 and No condition on Ringgold II V71.09 [facility] [address] [address] 27[address] Oct, [facility] [address] [place] [id number] [place] [address] 58168- 6076 Oct, Major depressive disorder, recurrent episode, moderate 296.32 ; Anxiety disorder, unspecified 300.00 and Persistent disorder of initiating or maintaining sleep 307.42 [place] [address] [place] [id number] [place] [address] 11033- 2148 September, Diabetes with other specified manifestations, type II or unspecified type, not stated as uncontrolled 250.80 ; Memory loss 780.93 and Cognitive complaints 799.59 [place] [address] [place] [id number] [place] [address] 65966- 3524 September, No condition on Ring[place] II V71.09 ; Major depression, recurrent 296.30 and Persistent mood [affective] disorder, unspecified 296.90 [place] [address], [place] [address] 7466 Aug, [place] [id number] [place] [address] 3978 Aug, [facility] [id number] [address] 0743 Aug, [facility] [address], [place] [address] 4521 Jul, [facility] [address] [address] 3214 Jul, [facility] [address], [place] [address]- 3708 Jul, [facility] [id number] [address] 7854 Jul, 2014 [facility] [place] [facility] [address] [id number] [place] [address]- 7554 Jul, [facility] [place] [facility] [address] [id number] [place] [address]- 2558 Jun, 2014 [facility] [place] [facility] [address] [id number] [place] [address]- 0311 Jun, 2014 [facility] [place] [facility] [address] [id number] [place] [address]- 1845 Jun, 2014 [facility] [place] [facility] [address] [id number] [place] [address]- 1495 Jun, 2014 [facility] [place] [facility] [address] [facility] [id number] [place] [address]- 9939 Jun, 2014 [facility] [place] [facility] [address] [facility] [id number] [place] [address]- 8333 Jun, 2014 [facility] [place] [facility] [address] [facility] [id number] [place] [address]- 7054 Jun, 2014 [facility] [place] [facility] [address] [facility] [id number] [place] [address]- 2804 Jun, 2014 [facility] [place] [facility] [address] [facility] [id number] [place] [address]- 6652 Jun, 2014 [facility] [place] [facility] [address] [facility] [id number], [place] [address]- 0894 Jun, 2014 [facility] [place] [facility] [address] [facility] [id number] [place] [address]- 8667 Jun, 2014 [facility] [place] [facility] [address] [facility] [id number] [place] [address]- 3916 Jun, 2014 [facility] [place] [facility] [address] [facility] [id number] [place] [address]- 1858 Jun, 2014 [facility] [place] [facility] [address] [facility] [id number] [place] [address]- 4583 May, [facility] [address] [id number] [place] [address]- 1893 May, [facility] [place] [facility] [address] [id number] [place] [address]- 2675 Apr, [facility] [place] [facility] [address] [id number] [place] [address]- 0566 Apr, [facility] [place] [facility] [address] [id number] [place] [address]- 9129 Apr, [facility] [place] [facility] [address] [id number] [place] [address]- 3052 Apr, [facility] [place] [facility] [address] [id number] [place] [address]- 2482 Apr, [facility] [place] [facility] [address] [id number] [place] [address]- 7468 Apr, [facility] [place] [facility] [address] [id number] [place] [address]- 2020 Apr, [facility] [place] [facility] [address] [id number] [place] [address]- 3216 Apr, [facility] [place] [facility] [address] [id number] [place] [address]- 8753 Apr, [facility] [place] [facility] [address] [id number] [place] [address]- 1057 Apr, [facility] [place] [facility] [address] [id number] [place] [address]- 8535 Apr, [facility] [place] [facility] [address] [id number] [place] [address]- 4099 Apr, [facility] [place] [facility] [address] [id number] [place] [address]- 3456 Apr, [facility] [place] [facility] [address] [id number] [place] [address]- 7461 Apr, [facility] [place] [facility] [address] [id number] [place] [address]- 2432 Apr, [facility] [place] [facility] [address] [id number] [place] [address]- 8763 Apr, [facility] [place] [facility] [address] [id number] [place] 6746 Apr, [facility] [place] [facility] [address] [id number] [place] [address]- 3261 Apr, [facility] [place] [facility] [address] [id number] [place] [address]- 4791 Apr, [facility] [place] [facility] [address] [id number] [place] [address]- 6212 Apr, [facility] [place] [facility] [address] [id number] [place] [address]- 5050 Mar, [facility] [place] [facility] [address] [id number] [place] [address]- 3304 Mar, [facility] [place] [facility] [address] [id number] [place] [address]- 6582 Mar, [facility] [place] [facility] [address] [id number] [place] [address]- 0590 Mar, [facility] [place] [facility] [address] [id number] [place] [address]- 6072 Mar, [facility] [place] [facility] [address] [id number] [place] [address]- 2129 Mar, [facility] [place] [facility] [address] [id number] [place] [address]- 6990 Mar, [facility] [place] [facility] [address] [id number] [place] [address]- 5457 Mar, [facility] [place] [facility] [address] [id number] [place] [address]- 9338 Mar, [facility] [place] [facility] [address] [id number] [place] [address]- 1155 Mar, [facility] [place] [facility] [address] [id number] [place] [address]- 7335 Mar, [facility] [place] [facility] [address] [id number] [place] [address]- 7027 Mar, [facility] [place] [facility] [address] [id number] [place] [address]- 6062 Mar, [facility] [place] [facility] [address] [id number] [place] [address]- 6761 Feb, [facility] [place] [facility] [address] [id number] [place] [address]- 8935 Feb, [facility] [place] [facility] [address] [id number] [place] [address]- 8883 Feb, [facility] [place] [facility] [address] [id number] [place] [address]- 4576 Feb, [facility] [place] [facility] [address] [id number], [place] [address]- 4009 Feb, [facility] [place] [facility] [address] [id number] [place] [address]- 8114 Feb, [facility] [place] [facility] [address] [id number], [place] [address]- 6594 Feb, [facility] [place] [facility] [address] [id number], [place] [address]- 5508 Feb, [facility] [place] [facility] [address] [id number], [place] [address]- 5790 Feb, [facility] [place] [facility] [address] [id number], [place] [address]- 2199 Feb, [facility] [place] [facility] [address] [id number], [place] [address]- 6562 Feb, [facility] [place] [facility] [address] [id number], [place] [address]- 3155 Feb, [facility] [place] [facility] [address] [id number] [place] [address]- 6640 Feb, [facility] [place] [facility] [address] [id number] [place] [address]- 4570 Feb, [facility] [place] [facility] [address] [id number] [place] [address]- 4066 Feb, [facility] [place] [facility] [address] [id number] [place] [address]- 2940 Jan, [facility] [place] [facility] [address] [id number] [place] [address]- 7235 08 Jan, 2014 [facility] [place] [facility] [address] [id number] [place] [address]- 5053 Jan, [facility] [place] [facility] [address] [id number] [place] [address]- 1779 Jan, [facility] [place] [facility] [address] [id number] [place] [address]- 2388 Jan, [facility] [place] [facility] [address] [id number] [place] [address]- 6712 Dec, [facility] [place] [facility] [address] [id number] [place] [address]- 2515 Dec, [facility] [place] [facility] [address] [id number] [place] [address]- 8702 Dec, [facility] [place] [facility] [address] [id number] [place] [address]- 2404 Dec, [facility] [place] [facility] [address] [id number] [place] [address]- 8290 Nov, [facility] [place] [facility] [address] [id number] [place] [address]- 7715 Nov, [facility] [place] [facility] [address] [id number] [place] [address]- 3307 Nov, [facility] [place] [facility] [address] [id number] [place] [address]- 9142 Nov, [facility] [place] [facility] [address] [id number] [place] [address]- 6301 Nov, 2013 [facility] [place] [facility] [address] [id number] [place] [address]- 4454 Nov, [facility] [place] [facility] [address] [id number] [place] [address]- 2515 Nov, [facility] [place] [facility] [address] [id number] [place] [address]- 8280 Nov, [facility] [place] [facility] [address] [id number] [place] [address]- 3365 Nov, [facility] [place] [facility] [address] [id number] [place] [address]- 2448 Nov, [facility] [place] [facility] [address] [id number] [place] [address]- 1097 Oct, [facility] [place] [facility] [address] [id number] [place] [address]- 2478 Oct, [facility] [place] [facility] [address] [id number] [place] [address]- 4522 September, [facility] [place] [facility] [address] [id number] [place] [address]- 1762 September, [facility] [place] [facility] [address] [id number] [place] [address]- 0082 September, [facility] [place] [facility] [address] [id number] [place] [address]- 6009 September, [facility] [place] [facility] [address] [id number] [place] [address]- 4105 Aug, [facility] [place] [facility] [address] [id number] [place] [address]- 3824 Aug, [facility] [place] [facility] [address] [id number] [place] [address]- 8624 Aug, [facility] [place] [facility] [address] [id number], [place] [address]- 7547 24 Jul, 2013 [facility] [place] [facility] [address] [id number] [place] [address]- 6094 24 Jul, 2013 [facility] [place] [facility] [address] [id number] [place] [address]- 7518 Jul, [facility] [place] [facility] [address] [id number] [place] [address]- 8449 Jul, [facility] [place] [facility] [address] [id number] [place] [address]- 9876 May, [facility] [place] [facility] [address] [id number] [place] [address]- 2907 May, [facility] [place] [facility] [address] [id number] [place] [address]- 6405 May, [facility] [place] [facility] [address] [id number] [place] [address]- 6144 Mar, [facility] [place] [facility] [address] [id number] [place] [address]- 5566 15 Mar, 2013 [facility] [place] [facility] [address] [id number] [place] [address]- 2993 Mar, [facility] [place] [facility] [address] [id number] [place] [address]- 9549 Mar, [facility] [place] [facility] [address] [id number], [place] [address]- 7797 16 Feb, 2013 [facility] [place] [facility] [address] [id number], [place] [address]- 5643 16 Feb, 2013 [facility] [place] [facility] [address] [id number] [place] [address]- 8901 04 Feb, 2013 [facility] [place] [facility] [address] [id number], [place] [address]- 2776 16 Jan, 2013 [facility] [place] [facility] [address] [id number] [place] [address]- 5979 12 Jan, 2013 [facility] [place] [facility] [address] [id number] [place] [address]- 2546 Jan, [facility] [address] [id number] [place] [address]- 3156 Dec, [facility] [address] [id number] [place] [address]- 0536 Dec, [facility] [address] [id number] [place] [address]- 2396 Dec, [facility] [address] [id number] [place] [address]- 1187 Dec, [facility] [address] [id number] [place] [address]- 3088 Nov, [facility] [address] [id number] [place] [address]- 9191 Oct, [facility] [address] [id number] [place] [address]- 8927 Oct, [facility] [address] [id number] [place] [address]- 0895 September, [facility] [address] [id number] [place] [address]- 1670 September, [facility] [address] [id number] [place] [address]- 3183 September, [facility] [address] [id number] [place] [address]- 7536 Aug, [facility] [address] [id number] [place] [address]- 2977 Aug, [facility] [address] [id number] [place] [address]- 1891 Aug, [facility] [address] [id number] [place] [address]- 2546 Aug, [facility] [address] [id number] [place] [address]- 9386 Jul, [facility] [address] [id number] [place] [address]- 9546 25 Jul, 2012 [facility] [place] [facility] [address] [id number] [place] [address]- 1426 21 Jul, 2012 [facility] [place] [facility] [address] [id number] [place] [address]- 9010 15 Jul, 2012 [facility] [place] [facility] [address] [id number] [place] [address]- 5530 14 Jul, 2012 [facility] [address] [id number] [place] [address]- 6798 Jul, [facility] [place] [facility] [address] [id number] [place] [address]- 4771 Jul, [facility] [place] [facility] [address] [id number] [place] [address]- 2098 06 Jun, 2012 [facility] [place] [facility] [address] [id number] [place] [address]- 6534 Jun, [facility] [place] [facility] [address] [id number] [place] [address]- 6461 05 Jun, 2012 [facility] [place] [facility] [address] [id number] [place] [address]- 5709 Jun, [facility] [place] [facility] [address] [id number] [place] [address]- 6536 May, [facility] [place] [facility] [address] [id number] [place] [address]- 8041 May, [facility] [place] [facility] [address] [id number] [place] [address]- 1342 May, [facility] [place] [facility] [address] [id number] [place] [address]- 4754 May, [facility] [place] [facility] [address] [id number] [place] [address]- 3073 May, [facility] [place] [facility] [address] [id number] [place] [address]- 4657 Apr, [facility] [place] [facility] [address] [id number] [place] [address]- 9243 Apr, [facility] [place] [facility] [address] [id number] [place] [address]- 8126 Mar, [facility] [place] [facility] [address] [id number] [place] [address]- 7427 Mar, [facility] [place] [facility] [address] [id number] [place] [address]- 8123 Mar, [facility] [place] [facility] [address] [id number] [place] [address]- 2641 Mar, [facility] [place] [facility] [address] [id number] [place] [address]- 5894 Mar, [facility] [place] [facility] [address] [id number] [place] [address]- 5537 Mar, [facility] [place] [facility] [address] [id number] [place] [address]- 3551 Mar, [facility] [place] [facility] [address] [id number] [place] [address]- 1946 Mar, [facility] [place] [facility] [address] [facility] [id number] [place] [address]- 1391 Mar, [facility] [place] [facility] [address] [id number] [place] [address]- 9272 Mar, [facility] [place] [facility] [address] [id number] [place] [address]- 2556 Feb, [facility] [place] [facility] [address] [id number] [place] [address]- 7656 Feb, [facility] [place] [facility] [address] [facility] [id number] [place] [address]- 3294 Feb, [facility] [place] [facility] [address] [id number] [place] [address]- 6896 Feb, [facility] [place] [facility] [address] [id number] [place] [address]- 7088 Feb, [facility] [place] [facility] [address] [id number] [place] [address]- 4978 Feb, [facility] [place] [facility] [address] [id number] [place] [address]- 1056 Feb, [facility] [place] [facility] [address] [id number] [place] [address]- 0681 Jan, [facility] [place] [facility] [address] [id number] [place] [address]- 5932 Jan, [facility] [place] [facility] [address] [id number] [place] [address]- 2081 Dec, [facility] [place] [facility] [address] [id number] [place] [address]- 3798 Dec, [facility] [place] [facility] [address] [id number] [place] [address]- 0041 Dec, [facility] [place] [facility] [address] [id number] [place] [address]- 1647 Dec, [facility] [place] [facility] [address] [id number] [place] [address]- 4386 Dec, [facility] [place] [facility] [address] [id number] [place] [address]- 4080 Dec, [facility] [place] [facility] [address] [id number] [place] [address]- 6978 Nov, [facility] [place] [facility] [address] [id number] [place] [address]- 8902 Nov, [facility] [place] [facility] [address] [id number] [place] [address]- 9692 Nov, [facility] [place] [facility] [address] [id number] [place] [address]- 4222 Nov, [facility] [place] [facility] [address] [id number], [place] [address] 2546 September, [facility] [address] [address] 2546 September, [facility] [address], [place] [address]- 2546 September, [facility] [address], [place] [address] 2546 Jul, [facility] [address] [id number], [place] [address] 2546 Jun, [facility] [address], [place] [address]- 4766 Jun, [facility] [address] [id number], [place] [address] 2546 Jun, [facility] [address], [place] [address]- 3336 Apr, [facility] [address], [place] [address]- 79[address] Mar, [facility] [id number] [place] [address] Mar, [facility] [id number], [place] [address] Feb, [facility] [id number] [address] Feb, [facility] [id number], [place] [address] Feb, [facility] [id number], [place] [address] Jul, [facility] [id number], [place] [address] Feb, IMMUNIZATIONS Vaccine Route Administration Date Status TORADOL (IM) 60 MG/2ML (UP TO 15 MG) IM Intramuscular Feb 16, 2018 Administered SOLUMEDROL (UP TO 125 MG) IM Intramuscular Feb 16, 2018 Administered SOCIAL HISTORY Never Assessed REASON FOR VISIT Eye c/o -Zoran MARROQUIN PLAN OF CARE VITAL SIGNS Height 62 in 2018-02-16 Weight 264 lbs 2018-02-16 Temperature 97.9 degrees Fahrenheit 2018-02-16 Heart Rate 79 bpm 2018-02-16 Respiratory Rate 20 2018-02-16 Oximetry 98 % 2018-02-16 BMI 48.28 kg/m2 2018-02-16 Blood pressure systolic 130 mmHg 2018-02-16 Blood pressure diastolic 80 mmHg 2018-02-16 MEDICATIONS Medication Instructions Dosage Frequency Start Date End Date Duration Status Glucocard Expression Test - as directed 24h Nov, 50 Active Furosemide 20 MG TAKE 1 TABLET BY MOUTH ONCE DAILY 30 Active [place] 7.5-325 MG Orally every 6 hrs 1 tablet as needed 6h Dec, 28 days Active Lisinopril-Hydrochlorothiazide 20-25 MG TAKE ONE TABLET BY MOUTH ONCE DAILY 30 Active Dulera 200-5 MCG/ACT Inhalation Twice a day 1 puff 12h Dec, Active Folic Acid 1 MG TAKE ONE TABLET BY MOUTH ONCE DAILY (DO NOT TAKE ON DAYS YOU TAKE METHOTREXATE) 30 Active Benzonatate 100 MG TAKE ONE CAPSULE BY MOUTH THREE TIMES DAILY NEEDED 10 Active Victoza 18 mg/3ml 1.8 mg injection 24h Active Lasix Active Omeprazole Active Acyclovir 400 mg Orally Five times a day 2 tablets Jan, 7 days Active Neurontin 300 MG Orally Three times a day 1 capsule 8h Nov, 30 day(s) Active PredniSONE 20 mg Orally Once a day, then 2 tabs daily x 5 days then 1 tab daily x 5 days then continue present regimen 3 tablets Jan,Jan 5 days Active Actos 30 MG TAKE ONE TABLET BY MOUTH ONCE DAILY 30 Active PredniSONE 20 mg 1 tablet 24h Active Terbinafine HCl 1 % Externally Twice a day 1 application to affected area 12h Aug, Active Potassium Chloride Marie ER 20 MEQ TAKE ONE TABLET BY MOUTH ONCE DAILY WITH FOOD 30 Active HydrOXYzine HCl 25 MG Orally every 8 hrs 1 tablet as needed 8h Jan, 30 day(s) Active Diflucan 150 MG Orally Once a day 1 tablet 24h 20 Dec, 2017 3 days Active Promethazine HCl 25 MG Orally every 12 hrs 1 tablet as needed 12h 30 day(s) Active Proventil HFA 108 (90 Base) MCG/ACT INHALE TWO PUFFS BY MOUTH FOUR TIMES DAILY NEEDED 25 Active Spironolactone 25 MG TAKE ONE TABLET BY MOUTH ONCE DAILY 30 Active Ondansetron 4 MG Orally every 4 hrs 1 tablet on the tongue and allow to dissolve as needed 4h Active Mupirocin 2 % Externally Three times a day 1 application to affected area 8h 5 day(s) Active Walker 1 as directed Dec, Active Cymbalta 60 mg Orally Twice a day 1 capsule 12h Aug, Active Bydureon BCise 2 MG/0.85ML Subcutaneous once weekly Inject Jan, Active Zanaflex 4 MG Orally Three times a day 1 tablet as needed 8h Dec, Active Magnesium Oxide 400 mg Orally Once a day 1 tablet as needed 24h 30 day(s) Active Ciprofloxacin 0.3% as directed Active Methotrexate 2.5 MG Orally 1 time per week 6 Active RESULTS No Results PROCEDURES Procedure Date Ordered Result Body Site SOLUMEDROL (UP TO 125 MG) Feb 16, 2018 TORADOL (IM) 60 MG/2ML (UP TO 15 MG) Feb 16, 2018 THER/PROPH/DIAG INJ, SC/IM Feb 16, 2018 INSTRUCTIONS MEDICATIONS ADMINISTERED No Known Medications MEDICAL (GENERAL) HISTORY Type Description Date Medical History type II diabetes-dx'd 12/2010 Medical History dysfunctional uterine bleeding--endometrial bx 12/2010 Medical History asthma Medical History hypertension Medical History obesity Medical History anxiety Medical History autoimmune disease Surgical History x1 Hospitalization History child Hospitalization History Asthma
--- OUTSIDE RECORDS SUMMARY | 2018-05-09 23:18 | XMS REPORT ---
Author Author MACY TAMAYO Organization [facility] Address [address] [place] [address] Care Team Providers Care Reducing Salon Attendant Name Role Phone MACY TAMAYO Unavailable PROBLEMS Type Condition ICD9-CM Code NUP15-WU Code Onset Dates Condition Status SNOMED Code Problem Tachycardia with heart rate 121-140 beats per minute R00.0 Active 8614953 Problem Enlarged thyroid gland E04.9 Active 7905165 Problem Body mass index (BMI) of 45.0-49.9 in adult Z68.42 Active 366796140 Problem Other specified mental disorders due to known physiological condition F06.8 Active 67327674 Problem Mood disorder F39 Active 38756256 Problem Frequent falls R29.6 Active 512142545 Problem Allergic rhinitis due to pollen J30.1 Active 55496660 Problem Menopause Z78.0 Active 357843611 Problem Lumbago with sciatica, right side M54.41 Active 500112698 Problem Dermatomyositis M33.90 Active 854562842 Problem Facial droop R29.810 Active 09857679 Problem Gait disturbance R26.9 Active 24139474 Problem Anxiety F41.9 Active 38938259 Problem Other chronic pain G89.29 Active 84150220 Problem Diabetes type 2, controlled E11.9 Active 87720791 Problem Osteoarthritis of right knee, unspecified osteoarthritis type M17.9 Active 931324550 Problem Plantar wart of both feet B07.0 Active [id number] Problem Lumbago with sciatica, left side M54.42 Active 547736924 Problem Arthritis M19.90 Active 1736455 Problem Controlled type 2 diabetes mellitus without complication, without long -term current use of insulin E11.9 Active 105385203 Problem Plantar warts B07.0 Active 37878848 Problem Morbid (severe) obesity due to excess calories E66.01 Active 344186484 ALLERGIES No Information ENCOUNTERS Encounter Location Date Diagnosis [facility] [address] [facility] [id number] [place] [address] 90933- 9418 Mar, [facility] [id number] [place] [address] 30930- 5585 Feb, [facility] [id number] [place] [address] 02540- 5583 Feb, [facility] [id number] [place] [address] 40873- 9750 Feb, [facility] [address] 75668- 4312 Feb, BMI 45.0-49.9, adult Z68.42 ; Gait disturbance R26.9 ; Other specified mental disorders due to known physiological condition F06.8 ; Weakness R53.1 ; Frequent falls R29.6 and Self-care deficit for bathing R46.0 [facility] [id number] [place] [address] 41997- 1608 Feb, [facility] [address] 11383- 1114 Jan, Mood disorder F39 [facility] [id number] [place] [address] 00711- 9424 Jan, BMI 45.0-49.9, adult Z68.42 and 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 [facility] [id number] [place] [address] 83819- 1582 Jan, [facility] [id number] [place] [address] 86823- 5812 Jan, [facility] [id number] [place] [address] 51606- 0745 Jan, [facility] [id number] [place] [address] 59337- 9483 Jan, 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 [facility] [id number] [place] [address] 97294- 8187 Jan, [facility] [id number] [place] [address] 49125- 7880 Jan, [place] [id number] [place] [address] 22226- 6714 21 Jan, 2018 [facility] [id number] [place] [address] 10728- 0084 19 Jan, 2018 Allergic reaction to drug, initial encounter T78.40XA [place] [address] 23295- 6562 17 Jan, 2018 BMI 45.0-49.9, adult Z68.42 and Facial droop R29.810 [facility] [id number] [place] [address] 46412- 8818 14 Jan, 2018 Mood disorder F39 [facility] [id number] [place] [address] 62213- 6587 11 Jan, 2018 Dermatomyositis M33.90 and BMI 40.0-44.9, adult Z68.41 [facility] [id number] [place] [address] 29094- 9701 10 Jan, 2018 [place] [id number] [place] [address] 70530- 7284 05 Jan, 2018 [place] [id number] [place] [address] 41174- 7456 04 Jan, 2018 Irritation of left eye H57.8 and BMI 40.0-44.9, adult Z68.41 [facility] [id number] [place] [address] 25767- 1391 Dec, Diabetes type 2, controlled E11.9 [facility] [id number] [place] [address] 03127- 7644 30 Dec, 2017 Acute right ankle pain M25.571 [place] [id number] [place] [address] 51549- 8795 30 Dec, 2017 Other chronic pain G89.29 ; Diabetes type 2, controlled E11.9 ; Gait disturbance R26.9 ; Weakness R53.1 and Muscle spasm M62.838 [facility] [id number] [place] [address] 67556- 9309 Dec, Acute non-recurrent maxillary sinusitis J01.00 [facility] [id number] [place] [address] 31662- 4250 Dec, [facility] [address] 20782- 3065 Dec, [facility] [id number] [place] [address] 83455- 4825 Dec, Acute non-recurrent maxillary sinusitis J01.00 [facility] [id number] [place] [address] 29209- 7340 Dec, Lumbago with sciatica, right side M54.41 and Lupus erythematosus L93.0 [facility] [id number] [place] [address] 11762- 6922 Dec, Mood disorder F39 [facility] [id number] [place] [address] 84424- 3454 Dec, Mood disorder F39 [facility] [id number] [place] [address] 24503- 1606 Dec, [facility] [id number] [place] [address] 98384- 9993 Dec, Acute right ankle pain M25.571 [facility] [id number] [place] [address] 88471- 5797 Nov, Lumbar radiculopathy M54.16 [facility] [address] 44203- 0848 Nov, [facility] [id number] [place] [address] 04602- 3132 Nov, Mood disorder F39 [facility] [id number] [place] [address] 43099- 4907 Nov, Lumbago with sciatica, right side M54.41 and Other chronic pain G89.29 [facility] [id number] [place] [address] 29973- 3934 Nov, Acute right ankle pain M25.571 [facility] [id number] [place] [address] 83655- 2425 Nov, [facility] [id number] [place] [address] 95090- 1579 Oct, [facility] [id number] [place] [address] 95778- 1596 Oct, Plantar wart of both feet B07.0 [facility] [id number] [place] [address] 79779- 0493 Oct, [facility] [id number] [place] [address] 96410- 2716 Oct, Acute right ankle pain M25.571 and Plantar wart of both feet B07.0 [facility] [id number] [place] [address] 45427- 9670 September, Other chronic pain G89.29 [facility] [id number] [place] [address] 12623- 6434 September, Other chronic pain G89.29 [facility] [id number] [place] [address] 56006- 8028 September, Other chronic pain G89.29 [facility] [id number] [place] [address] 09307- 0812 Aug, Mood disorder F39 [facility] [id number] [place] [address] 89935- 1037 Aug, Other chronic pain G89.29 ; Controlled type 2 diabetes mellitus without complication, without long-term current use of insulin E11.9 ; Low back pain M54.5 and Tinea corporis B35.4 [place] [address] [place] [address]- 9930 Aug, Mood disorder F39 and Anxiety F41.9 [place] [address] 53868- 7927 Aug, Mood disorder F39 and Anxiety F41.9 [place] [address] 81558- 2194 Jul, [facility] [address] 51873 -3525 Jul, Scabies B86 and BMI 45.0-49.9, adult Z68.42 [place] [address] 17915- 6214 Jul, [place] [address] 41239- 4411 Jul, Mood disorder F39 and Anxiety F41.9 [place] [address] 60846- 3534 Jul, [facility] [place] [id number] [place] [address] 56654 -9419 27 Jun, 2017 Bronchitis J40 ; Dark urine R82.99 and BMI 45.0-49.9, adult Z68.42 [place] [id number] [place] [address] 05073- 8190 14 Jun, 2017 Acute pain of right shoulder M25.511 and Acute pain of right knee M25.561 [place] [id number] [place] [address] 73263- 7420 May, BMI 40.0-44.9, adult Z68.41 ; Controlled type 2 diabetes mellitus without complication, without long-term current use of insulin E11.9 ; Muscle cramping R25.2 ; Hot flashes R23.2 ; Mood disorder F39 ; Anxiety F41.9 and Morbid (severe) obesity due to excess calories E66.01 [place] [address] 45638- 9068 May, BMI 40.0-44.9, adult Z68.41 ; Controlled type 2 diabetes mellitus without complication, without long-term current use of insulin E11.9 ; Muscle cramping R25.2 and Hot flashes R23.2 [address] [id number] [place] [address] 05982- 5076 May, Tachycardia with heart rate 121-140 beats per minute R00.0 ; Morbid (severe) obesity due to excess calories E66.01 ; Diabetes type 2, controlled E11.9 and Enlarged thyroid gland E04.[address] 97979- 7719 25 May, 2017 Encounter for well woman [...] Dysuria R30.0 and Screening breast examination Z12.[address] 28345- 8579 Apr, Mood disorder F39 ; Other chronic pain G89.29 and Anxiety F41.[address] 16411- 6647 Apr, Lumbago with sciatica, left side M54.42 and Other chronic pain G89.[address] 22498- 2011 Apr, Lupus erythematosus L93.[address] 91458- 1449 Mar, Plantar wart of both feet B07.[address] 61601- 5043 Mar, Lupus erythematosus L93.0 and Sinus drainage J34.89 [facility] [id number] [place] [address] 65096- 4417 Mar, Mood disorder F39 ; Other chronic pain G89.29 and Anxiety F41.9 [facility] [id number] [place] [address] 15779- 6171 Mar, Mood disorder F39 ; Arthritis M19.90 and Plantar warts B07.0 [facility] [id number] [place] [address] 93572- 5313 Feb, Lupus erythematosus L93.0 [facility] [id number] [place] [address] 13242- 6338 Feb, Other chronic pain G89.29 [facility] [id number] [place] [address] 48375- 0065 Feb, Mood disorder F39 and Anxiety F41.9 [facility] [id number] [place] [address] 19198- 2189 Jan, [facility] [address] 95020- 5868 Jan, Mood disorder F39 [facility] [id number] [place] [address] 31119- 7156 Dec, Nail, ingrown L60.0 [facility] [id number] [place] [address] 22099- 3464 Dec, Nail, ingrown L60.0 [facility] [id number] [place] [address] 94950- 7339 Nov, Mood disorder F39 and Anxiety F41.9 [facility] [id number] [place] [address] 13532- 3301 Nov, Sinus drainage J34.89 ; Hot flashes R23.2 ; Anxiety F41.9 and Diabetes type 2, controlled E11.9 [facility] [id number] [address]- 2543 Nov, Nail, ingrown L60.0 [facility] [id number] [place] [address] 56894- 5420 Oct, Anxiety F41.9 and Mood disorder F39 [facility] [id number] [place] [address] 62904- 2026 Oct, Nail, ingrown L60.0 and Anxiety F41.9 [facility] [id number] [place] [address] 25423- 4336 Oct, Lupus erythematosus L93.0 [facility] [id number] [place] [address] 60588- 5295 September, [facility] [id number] [place] [address] 07977- 0157 September, [facility] [id number] [place] [address] 08184- 2256 September, Lupus erythematosus L93.0 [facility] [id number] [place] [address] 40187- 7861 Aug, [facility] [id number] [place] [address] 44676- 9334 Aug, Mood disorder F39 and Anxiety F41.9 [facility] [id number] [place] [address] 05655- 7398 Aug, Lupus erythematosus L93.0 ; Diabetes type 2, controlled E11.9 and Localized edema R60.0 [facility] [address] [place] [address] 70625- 9128 Aug, [facility] [id number] [place] [address] 66711- 1494 Jul, Anxiety F41.9 and Mood disorder F39 [facility] [address] [address]- 6409 Jul, Diabetes type 2, controlled E11.9 [facility] [address] [place] [address] 47511- 4279 13 Jun, 2016 Anxiety F41.9 [facility] [id number] [place] [address] 47754- 2439 May, [facility] [id number] [place] [address] 19977- 4684 May, [facility] [address] 34938- 9416 May, Nausea R11.0 ; Other chronic pain G89.29 and Pain in right knee M25.561 [place] [address] 21669- 0121 May, [facility] [id number] [place] [address] 08095- 2083 Apr, Tear of medial meniscus of right knee, current, unspecified tear type, subsequent encounter S83.241D and Tear of lateral meniscus of right knee, current, unspecified tear type, subsequent encounter S83.281D [facility] [id number] [place] [address] 43051- 4375 Apr, Anxiety F41.9 and Mood disorder F39 [facility] [id number] [place] [address] 83786- 9562 Apr, Anxiety F41.9 [facility] [id number] [place] [address] 76642- 7487 Apr, [facility] [address] [place] [address] 08332- 0868 Mar, [facility] [id number] [place] [address] 06198- 6330 Mar, Lupus erythematosus L93.0 and Diabetes type 2, controlled E11.9 [facility] [address] [place] [address] 03556- 5194 Mar, Mood disorder F39 [facility] [address] [place] [address] 50634- 2260 Mar, Tear of lateral meniscus of right knee, current, unspecified tear type, initial encounter S83.281A and Osteoarthritis of right knee, unspecified osteoarthritis type M17.9 [facility] [id number] [place] [address] 07453- 2096 Mar, [facility] [id number] [place] [address] 93813- 4207 Feb, Mood disorder F39 [facility] [id number] [place] [address] 67771 2544 Feb, Rash R21 [facility] [id number] [place] [address] 11664- 6456 Feb, [facility] [id number] [place] [address] 63326- 0317 Jan, Other chronic pain G89.29 and Muscle spasm M62.838 [facility] [id number] [place] [address] 96349 2546 Jan, Mood disorder F39 [facility] [id number] [place] [address] 74413 2543 Jan, Pain in right knee M25.561 ; Other chronic pain G89.29 and Muscle spasm M62.838 [facility] [address] [place] [address] 01961 2546 Dec, [facility] [id number] [place] [address] 29084 2546 Dec, [facility] [id number] [place] [address] 05495 2543 Nov, [facility] [id number] [place] [address] 92775- 6765 Nov, Mood disorder F39 [facility] [address] [place] [address] 00264- 8244 Nov, Diabetes type 2, controlled E11.9 ; Bronchitis J40 ; Edema, unspecified type R60.9 ; Weight gain R63.5 and Right knee pain, unspecified chronicity M25.561 [place] [id number] [place] [address] 85418- 8163 Oct, Mood disorder F39 [place] [id number] [place] [address] 89025- 5351 Oct, Lupus erythematosus L93.0 and Bilateral edema of lower extremity R60.0 [facility] [id number] [place] [address] 25224- 1508 Oct, Mood disorder F39 and Anxiety F41.9 [place] [address] 79486- 5670 September, Mood disorder F39 ; Anxiety F41.9 and Anger reaction R45.4 [place] [address] 85234- 7355 September, Diabetes type 2, controlled E11.9 ; Edema, unspecified type R60.9 and Fatigue, unspecified type R53.83 [place] [address] 49447- 0368 Aug, Mood disorder F39 and Generalized anxiety disorder F41.1 [place] [id number] [place] [address] 12743- 9392 Aug, Diabetes type 2, controlled E11.9 ; Sinusitis J32.9 and Mood disorder F39 [place] [id number] [place] [address] 32531- 3558 15 Aug, 2015 Lupus erythematosus L93.0 [place] [address] 48019- 2801 14 Aug, 2015 [place] [id number] [place] [address] 41484- 8953 Aug, [place] [address] 89079- 6202 Jul, Diabetes type 2, controlled E11.9 [facility] [id number] [address]- 7782 Jul, Mood disorder F39 and Depression F32.9 [facility] [id number] [place] [address] 14322- 8475 Jul, Lupus erythematosus L93.0 and Diabetes type 2, controlled E11.9 [facility] [id number] [place] [address] 72117- 9128 Jul, Mood disorder F39 and Anxiety F41.9 [facility] [id number] [place] [address] 08474- 5799 Jul, [facility] [id number] [place] [address] 01228- 8336 Jul, [facility] [id number] [place] [address] 62220- 0560 Jun, Mood disorder F39 and Anxiety F41.9 [facility] [address] [place] [address] 42123- 7319 Jun, Mood disorder F39 [facility] [id number] [place] [address] 95763- 4832 Jun, [facility] [id number] [place] [address] 39234- 5449 Jun, [facility] [id number] [place] [address] 58658- 6343 Jun, Mood disorder F39 [facility] [address] [address]- 2391 Jun, [facility] [id number] [place] [address] 17628- 9830 May, [facility] [address] [address]- 5234 May, [facility] [id number] [place] [address] 36580- 5513 May, [facility] [id number] [place] [address] 64036- 8266 May, [facility] [id number] [place] [address] 45598- 8512 May, Anxiety F41.9 ; Dermatomyositis M33.90 and Diabetes type 2, controlled E11.9 [facility] [id number] [place] [address] 09357 -8785 May, Sinusitis J32.9 and Cough R05 [facility] [id number] [place] [address] 62413- 8533 May, Mood disorder F39 [facility] [id number] [place] [address] 21555- 7346 May, Adjustment disorder with mixed anxiety and depressed mood F43.23 [facility] [id number] [place] [address] 86699- 7307 Apr, [facility] [id number] [place] [address] 31053- 5679 Apr, [facility] [id number] [place] [address] 50851- 4635 Apr, Generalized anxiety disorder F41.1 and Mood disorder F39 [facility] [id number] [place] [address] 90541- 0738 Mar, [facility] [id number] [place] [address] 26282- 2803 Mar, [facility] [id number] [place] [address] 05499- 5653 Mar, [facility] [id number] [place] [address] 64309- 6677 Mar, Mood disorder F39 [facility] [id number] [place] [address] 68190- 0225 Feb, [facility] [id number] [place] [address] 51868- 2717 Feb, Diabetes E11.9 and Bronchitis J40 [facility] [id number] [place] [address] [phone]- 7227 Feb, [facility] [facility] [address] [address]- [address]39 Feb, [facility] [id number] [place] [address] 70703- 8288 Feb, Major depression, recurrent, full remission F33.42 and KELLY ( generalized anxiety disorder) F41.[address] [address]- [address]1 Feb, [address] 68915- 5249 Feb, Single major depressive episode, in partial or unspecified remission F32.5 [facility] [id number] [place] [address] 72939- 3554 Jan, Fatigue 780.79 [facility] [id number] [place] [address] 47340- 0365 Jan, [facility] [id number] [place] [address] 34928- 8316 Jan, Diabetes with other specified manifestations, type II or unspecified type, not stated as uncontrolled 250.80 [facility] [id number] [place] [address] 46710- 3417 Jan, [facility] [id number] [place] [address] 06931- 2782 Dec, Hot flashes 627.2 ; Memory loss 780.93 and Joint pain 719.40 [facility] [id number] [place] [address] 17974- 1461 Dec, Major depression, recurrent 296.30 ; Generalized anxiety disorder 300.02 ; Adjustment disorder with depressed mood 309.0 and No condition on [place]ver II V71.09 [facility] [id number] [address] Dec, [facility] [id number] [place] [address] 52994- 7605 Nov, Cognitive and neurobehavioral dysfunction 294.9 ; Major depressive disorder, recurrent episode, moderate degree 296.32 and Anxiety state , unspecified 300.00 [facility] [id number] [place] [address] 31215- 0316 Nov, [facility] [id number] [place] [address] 27162- 7557 Nov, Bronchitis 490 and Diabetes with other specified manifestations, type II or unspecified type, not stated as uncontrolled 250.[id number] [place] [address] 60496- 9891 Nov, Major depressive disorder, recurrent episode, moderate 296.32 and Anxiety disorder, unspecified 300.00 [facility] [id number] [address] 0769 Nov, Anxiety, generalized 300.02 ; Intermittent explosive disorder 312.34 ; No condition on Grover II V71.09 and No condition on axis III V71.09 [place] [id number] [address] Oct, Diabetes with other specified manifestations, type II or unspecified type, not stated as uncontrolled 250.80 ; Urinary tract infection, site not specified 599.0 and Bronchitis 490 [place] [address], [place] [address] Oct, Intermittent explosive disorder 312.34 ; Bipolar 1 disorder , depressed, moderate 296.52 ; Major depression, chronic 296.20 ; No condition on Grover II V71.09 and No condition on axis III V71.09 [place] [id number] [address] Oct, Major depressive disorder, recurrent episode, moderate 296.32 ; Anxiety state 300.00 ; Cognitive decline 294.9 and No condition on Grover II V71.09 [facility] [address], [place] [address] Oct, [facility] [address] [id number] [place] [address] 158062- 2499 Oct, Major depressive disorder, recurrent episode, moderate 296.32 ; Anxiety disorder, unspecified 300.00 and Persistent disorder of initiating or maintaining sleep 307.42 [facility] [id number] [place] [address] 59[address]- 1663 September, Diabetes with other specified manifestations, type II or unspecified type, not stated as uncontrolled 250.80 ; Memory loss 780.93 and Cognitive complaints 799.59 [facility] [id number] [place] [address]- 2323 September, No condition on Grover II V71.09 ; Major depression, recurrent 296.30 and Persistent mood [affective] disorder, unspecified 296.90 [facility] [id number] [address] Aug, [facility] [id number] [place] [address]- 8777 Aug, [facility] [id number] [place] [address] 22[address]- 5034 Aug, [facility] [address], [place] [address] 1490 Jul, [facility] [id number] [address] 7[address] Jul, [facility] [address], [place] [address]- 6025 Jul, [facility] [id number] [place] [address] 601985- 7976 Jul, [facility] [address] [address] Jul, [facility] [address] [place] [id number] [place] [address]- 3[address] Jun, 2014 [facility] [place] [facility] [address] [id number] [place] [address]- 5609 Jun, 2014 [facility] [place] [facility] [address] [id number] [place] [address]- 5806 Jun, 2014 [facility] [place] [facility] [address] [id number] [place] [address]- 3128 Jun, 2014 [facility] [place] [facility] [address] [id number] [place] [address]- 9158 Jun, 2014 [facility] [place] [facility] [address] [id number] [place] [address]- 0689 Jun, 2014 [facility] [place] [facility] [address] [facility] [id number] [place] [address]- 8083 Jun, 2014 [facility] [place] [facility] [address] [facility] [id number] [place] [address]- 9955 Jun, 2014 [facility] [place] [facility] [address] [facility] [id number] [place] [address]- 4928 Jun, 2014 [facility] [place] [facility] [address] [facility] [id number] [place] [address]- 0178 Jun, 2014 [facility] [place] [facility] [address] [facility] [id number] [place] [address]- 8463 Jun, 2014 [facility] [place] [facility] [address] [facility] [id number] [address]- 2613 Jun, 2014 [facility] [place] [facility] [address] [facility] [id number] [place] [address]- 3368 Jun, 2014 [facility] [place] [facility] [address] [id number], [place] [address]- 3092 May, [facility] [place] [facility] [address] [facility] [id number] [place] [address]- 2737 May, [facility] [place] [facility] [address] [id number] [place] [address]- 0265 Apr, [facility] [place] [facility] [address] [id number] [place] [address]- 3010 Apr, [facility] [place] [facility] [address] [id number] [place] [address]- 8276 Apr, [facility] [place] [facility] [address] [id number] [place] [address]- 4101 Apr, [facility] [place] [facility] [address] [id number] [place] [address]- 7660 Apr, [facility] [place] [facility] [address] [id number] [place] [address]- 6266 Apr, [facility] [place] [facility] [address] [id number] [place] [address]- 8059 Apr, [facility] [place] [facility] [address] [id number] [place] [address]- 2981 Apr, [facility] [place] [facility] [address] [id number] [place] [address]- 3016 Apr, [facility] [place] [facility] [address] [id number] [place] [address]- 2139 Apr, [facility] [place] [facility] [address] [id number] [place] [address]- 2390 Apr, [facility] [place] [facility] [address] [id number] [place] [address]- 8349 Apr, [facility] [place] [facility] [address] [id number] [place] [address]- 2980 Apr, [facility] [place] [facility] [address] [id number] [place] [address]- 4382 Apr, [facility] [place] [facility] [address] [id number] [place] [address]- 4423 Apr, [facility] [place] [facility] [address] [id number] [place] [address]- 4860 Apr, [facility] [place] [facility] [address] [id number] [place] [address]- 7801 Apr, [facility] [place] [facility] [address] [id number] [place] [address]- 5535 Apr, [facility] [place] [facility] [address] [id number] [place] [address]- 1962 Apr, [facility] [place] [facility] [address] [id number] [place] [address]- 0106 Apr, [facility] [place] [facility] [address] [id number] [place] [address]- 3894 Mar, [facility] [place] [facility] [address] [id number] [place] [address]- 6629 Mar, [facility] [place] [facility] [address] [id number] [place] [address]- 5050 Mar, [facility] [place] [facility] [address] [id number] [place] [address]- 4695 Mar, [facility] [place] [facility] [address] [id number] [place] [address]- 7978 Mar, [facility] [place] [facility] [address] [id number] [place] [address]- 5869 Mar, [facility] [place] [facility] [address] [id number] [place] [address]- 5927 Mar, [facility] [place] [facility] [address] [id number] [place] [address]- 0909 Mar, [facility] [place] [facility] [address] [id number] [place] [address]- 8227 Mar, [facility] [place] [facility] [address] [id number] [place] [address]- 8446 Mar, [facility] [place] [facility] [address] [id number] [place] [address]- 9675 Mar, [facility] [place] [facility] [address] [id number] [place] [address]- 5926 Mar, [facility] [place] [facility] [address] [id number] [place] [address]- 5705 Mar, [facility] [place] [facility] [address] [id number] [place] [address]- 7395 Feb, [facility] [place] [facility] [address] [id number] [place] 9128 Feb, [facility] [place] [facility] [address] [id number] [place] 3718 Feb, [facility] [place] [facility] [address] [id number] [place] [address]- 2467 Feb, [facility] [place] [facility] [address] [id number] [place] [address]- 8447 Feb, [facility] [place] [facility] [address] [id number] [place] [address]- 2135 Feb, [facility] [place] [facility] [address] [id number] [place] [address]- 9668 Feb, [facility] [place] [facility] [address] [id number] [place] [address]- 3728 Feb, [facility] [place] [facility] [address] [id number] [place] [address]- 5658 Feb, [facility] [place] [facility] [address] [id number], [place] [address]- 2505 Feb, [facility] [place] [facility] [address] [id number], [place] [address]- 9576 Feb, [facility] [place] [facility] [address] [id number] [place] [address]- 5263 10 Feb, 2014 [facility] [place] [facility] [address] [id number], [place] [address]- 2751 10 Feb, 2014 [facility] [place] [facility] [address] [id number] [place] 5642 Feb, [facility] [place] [facility] [address] [id number] [place] [address]- 7021 07 Feb, 2014 [facility] [place] [facility] [address] [id number] [place] [address]- 8749 Jan, [facility] [place] [facility] [address] [id number] [place] [address]- 0936 Jan, [facility] [place] [facility] [address] [id number] [place] [address]- 3466 Jan, [facility] [place] [facility] [address] [id number] [place] [address]- 5681 Jan, [facility] [place] [facility] [address] [id number] [place] [address]- 7280 Jan, [facility] [place] [facility] [address] [id number] [place] [address]- 1724 Dec, [facility] [place] [facility] [address] [id number] [place] [address]- 5051 Dec, [facility] [place] [facility] [address] [id number] [place] [address]- 6529 Dec, [facility] [place] [facility] [address] [id number] [place] [address]- 5500 Dec, [facility] [place] [facility] [address] [id number] [place] [address]- 6729 Nov, [facility] [place] [facility] [address] [id number] [place] [address]- 2054 Nov, [facility] [place] [facility] [address] [id number] [place] [address]- 2878 Nov, [facility] [place] [facility] [address] [id number] [place] [address]- 1030 Nov, [facility] [place] [facility] [address] [id number] [place] [address]- 2257 Nov, [facility] [place] [facility] [address] [id number] [place] [address]- 6260 Nov, [facility] [place] [facility] [address] [id number] [place] [address]- 2242 Nov, [facility] [place] [facility] [address] [id number] [place] [address]- 9990 Nov, [facility] [place] [facility] [address] [id number] [place] [address]- 9216 Nov, [facility] [place] [facility] [address] [id number] [place] [address]- 2207 Nov, [facility] [place] [facility] [address] [id number] [place] [address]- 4631 Oct, [facility] [place] [facility] [address] [id number] [place] [address]- 8121 Oct, [facility] [place] [facility] [address] [id number] [place] [address]- 1582 September, [facility] [place] [facility] [address] [id number] [place] [address]- 5385 September, [facility] [place] [facility] [address] [id number] [place] [address]- 5987 September, [facility] [place] [facility] [address] [id number] [place] [address]- 0740 September, [facility] [place] [facility] [address] [id number] [place] [address]- 2195 Aug, [facility] [place] [facility] [address] [id number] [place] [address]- 2823 Aug, [facility] [place] [facility] [address] [id number] [place] [address]- 5261 Aug, [facility] [place] [facility] [address] [id number] [place] [address]- 5508 Jul, [facility] [place] [facility] [address] [id number] [place] [address]- 3300 Jul, [facility] [place] [facility] [address] [id number], [place] [address]- 5321 14 Jul, 2013 [facility] [place] [facility] [address] [id number] [place] [address]- 5928 14 Jul, 2013 [facility] [place] [facility] [address] [id number] [place] [address]- 5744 20 May, 2013 [facility] [place] [facility] [address] [id number] [place] [address]- 0121 17 May, 2013 [facility] [place] [facility] [address] [id number] [place] [address]- 1710 17 May, 2013 [facility] [place] [facility] [address] [id number] [place] [address]- 0644 15 Mar, 2013 [facility] [place] [facility] [address] [id number] [place] [address]- 5075 15 Mar, 2013 [facility] [place] [facility] [address] [id number] [place] [address]- 7186 Mar, [facility] [place] [facility] [address] [id number] [place] [address]- 2542 Mar, [facility] [place] [facility] [address] [id number] [place] [address]- 4105 16 Feb, 2013 [facility] [place] [facility] [address] [id number] [place] [address]- 1349 16 Feb, 2013 [facility] [place] [facility] [address] [id number], [place] [address]- 2173 04 Feb, 2013 [facility] [place] [facility] [address] [id number], [place] [address]- 3252 16 Jan, 2013 [facility] [place] [facility] [address] [id number] [place] [address]- 8783 12 Jan, 2013 [facility] [place] [facility] [address] [id number] [place] [address]- 0722 09 Jan, 2013 [facility] [place] [facility] [address] [id number] [place] [address]- 0267 Dec, [facility] [place] [facility] [address] [id number] [place] [address]- 0889 Dec, [facility] [address] [id number] [place] [address]- 5117 Dec, [facility] [address] [id number] [place] [address] 2546 Dec, [facility] [address] [id number] [place] [address]- 3811 Nov, [facility] [address] [id number] [place] [address]- 0860 Oct, [facility] [address] [id number] [place] [address]- 9948 Oct, [facility] [address] [id number] [place] [address]- 5835 September, [facility] [address] [id number] [place] [address]- 2619 September, [facility] [address] [id number] [place] [address]- 2812 September, [facility] [address] [id number] [place] [address]- 5499 Aug, [facility] [address] [id number] [place] [address]- 6537 Aug, [facility] [address] [id number] [place] [address]- 3039 Aug, [facility] [address] [id number] [place] [address]- 1092 Aug, [facility] [place] [facility] [address] [id number] [place] [address]- 6793 Jul, [facility] [place] [facility] [address] [id number] [place] [address]- 2736 Jul, [facility] [place] [facility] [address] [id number] [place] [address]- 6384 Jul, [facility] [address] [id number] [place] [address]- 0882 15 Jul, 2012 [facility] [place] [facility] [address] [id number] [place] [address]- 7627 14 Jul, 2012 [facility] [place] [facility] [address] [id number] [place] [address]- 7045 13 Jul, 2012 [facility] [place] [facility] [address] [id number] [place] [address]- 4370 13 Jul, 2012 [facility] [place] [facility] [address] [id number] [place] [address]- 7819 Jun, [facility] [place] [facility] [address] [id number] [place] [address]- 9247 Jun, [facility] [place] [facility] [address] [id number] [place] [address]- 4076 Jun, [facility] [place] [facility] [address] [id number] [place] [address]- 2276 Jun, [facility] [place] [facility] [address] [id number] [place] [address]- 0733 May, [facility] [place] [facility] [address] [id number] [place] [address]- 1957 May, [facility] [place] [facility] [address] [id number] [place] [address]- 7627 May, [facility] [place] [facility] [address] [id number] [place] [address]- 5615 May, [facility] [place] [facility] [address] [id number] [place] [address]- 6285 May, [facility] [place] [facility] [address] [id number] [place] [address]- 7164 Apr, [facility] [place] [facility] [address] [id number] [place] [address]- 4135 Apr, [facility] [place] [facility] [address] [id number] [place] [address]- 3669 Mar, [facility] [place] [facility] [address] [id number] [place] [address]- 0206 Mar, [facility] [place] [facility] [address] [id number] [place] [address]- 5995 Mar, [facility] [place] [facility] [address] [id number] [place] [address]- 3440 Mar, [facility] [place] [facility] [address] [id number] [place] [address]- 5257 Mar, [facility] [place] [facility] [address] [id number] [place] [address]- 9649 Mar, [facility] [place] [facility] [address] [id number] [place] [address]- 1407 Mar, [facility] [place] [facility] [address] [id number] [place] [address]- 3934 Mar, [facility] [place] [facility] [address] [id number] [place] [address]- 1973 Mar, [facility] [place] [facility] [address] [id number] [place] [address]- 8849 Mar, [facility] [place] [facility] [address] [facility] [id number] [place] [address]- 3323 Feb, [facility] [place] [facility] [address] [id number] [place] [address]- 6185 Feb, [facility] [place] [facility] [address] [id number] [place] [address]- 8785 Feb, [facility] [place] [facility] [address] [id number] [place] [address]- 5821 Feb, [facility] [place] [facility] [address] [facility] [id number] [place] [address]- 7508 Feb, [facility] [place] [facility] [address] [id number] [place] [address]- 7416 Feb, [facility] [place] [facility] [address] [id number] [place] [address]- 2305 Feb, [facility] [place] [facility] [address] [id number] [place] [address]- 2707 Jan, [facility] [place] [facility] [address] [id number] [place] [address]- 9669 Jan, [facility] [place] [facility] [address] [id number] [place] [address]- 9960 Dec, [facility] [place] [facility] [address] [id number] [place] [address]- 6029 Dec, [facility] [place] [facility] [address] [id number] [place] [address]- 3082 Dec, [facility] [place] [facility] [address] [id number] [place] [address]- 7922 Dec, [facility] [place] [facility] [address] [id number] [place] [address]- 7814 Dec, [facility] [place] [facility] [address] [id number] [place] [address]- 9269 Dec, [facility] [place] [facility] [address] [id number] [place] [address]- 4159 Nov, [facility] [place] [facility] [address] [id number] [place] [address]- 9846 Nov, [facility] [place] [facility] [address] [id number] [place] [address]- 9496 Nov, [facility] [place] [facility] [address] [id number] [place] [address]- 9963 Nov, [facility] [place] [facility] [address] [id number] [place] [address]- 8217 September, [facility] [place] [facility] [address] [id number] [place] [address] September, [facility] [place] [facility] [address] [id number], [place] [address] September, [facility] [id number] [address] Jul, [facility] [id number] [address] 29 Jun, 2011 [facility] [id number] [address] 20 Jun, 2011 [facility] [id number] [address] 13 Jun, 2011 [facility] [id number] [place] [address] Apr, [facility] [id number] [address] Mar, [facility] [id number] [address] Mar, [facility] [id number] [address] Feb, [facility] [id number] [address] Feb, [facility] [id number] [address] Feb, [facility] [id number] [address] Jul, [facility] [id number] [address] Feb, IMMUNIZATIONS No Known Immunizations SOCIAL HISTORY Never Assessed REASON FOR VISIT referral PLAN OF CARE VITAL SIGNS MEDICATIONS Unknown [...]
--- OUTSIDE RECORDS SUMMARY | 2018-05-09 23:19 | XMS REPORT ---
Author Author MACY TAMAYO Organization [facility] Address [address] [place] [address] Care Team Providers Care Product Safety Professional Name Role Phone MACY TAMAYO Unavailable PROBLEMS Type Condition ICD9-CM Code JCV45-RF Code Onset Dates Condition Status SNOMED Code Problem Tachycardia with heart rate 121-140 beats per minute R00.0 Active 5956249 Problem Enlarged thyroid gland E04.9 Active 1366170 Problem Body mass index (BMI) of 45.0-49.9 in adult Z68.42 Active 176505053 Problem Other specified mental disorders due to known physiological condition F06.8 Active 04944269 Problem Mood disorder F39 Active 12855218 Problem Frequent falls R29.6 Active 012661275 Problem Allergic rhinitis due to pollen J30.1 Active 52306784 Problem Menopause Z78.0 Active 141797613 Problem Lumbago with sciatica, right side M54.41 Active 461064049 Problem Dermatomyositis M33.90 Active 980990934 Problem Facial droop R29.810 Active 34989689 Problem Gait disturbance R26.9 Active 68515195 Problem Anxiety F41.9 Active 45883921 Problem Other chronic pain G89.29 Active 75998301 Problem Diabetes type 2, controlled E11.9 Active 07254991 Problem Osteoarthritis of right knee, unspecified osteoarthritis type M17.9 Active 277844733 Problem Plantar wart of both feet B07.0 Active 14249271189633846 Problem Lumbago with sciatica, left side M54.42 Active 697988171 Problem Arthritis M19.90 Active 8544568 Problem Controlled type 2 diabetes mellitus without complication, without long -term current use of insulin E11.9 Active 307108680 Problem Plantar warts B07.0 Active 68687827 Problem Morbid (severe) obesity due to excess calories E66.01 Active 421245592 ALLERGIES No Information ENCOUNTERS Encounter Location Date Diagnosis [facility] [address] [facility] [id number] [place] [address] 59713- 3031 Mar, [facility] [id number] [place] [address] 17234- 5281 Feb, [facility] [id number] [place] [address] 92872- 3760 Feb, [facility] [id number] [place] [address] 99797- 7120 Feb, [facility] [address] 51878- 1913 Feb, BMI 45.0-49.9, adult Z68.42 ; Gait disturbance R26.9 ; Other specified mental disorders due to known physiological condition F06.8 ; Weakness R53.1 ; Frequent falls R29.6 and Self-care deficit for bathing R46.0 [facility] [id number] [place] [address] 97855- 5417 Feb, [facility] [address] 39023- 2508 Jan, Mood disorder F39 [facility] [id number] [place] [address] 17072- 6762 Jan, BMI 45.0-49.9, adult Z68.42 and 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 [facility] [id number] [place] [address] 46400- 5023 Jan, [facility] [id number] [place] [address] 72760- 8219 Jan, [facility] [id number] [place] [address] 16303- 1403 Jan, [facility] [id number] [place] [address] 87579- 8102 Jan, 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 [facility] [id number] [place] [address] 92427- 3662 Jan, [facility] [id number] [place] [address] 87484- 0260 Jan, [place] [id number] [place] [address] 79852- 6196 21 Jan, 2018 [facility] [id number] [place] [address] 83010- 2379 19 Jan, 2018 Allergic reaction to drug, initial encounter T78.40XA [place] [address] 15577- 5231 17 Jan, 2018 BMI 45.0-49.9, adult Z68.42 and Facial droop R29.810 [place] [id number] [place] [address] 28648- 9745 14 Jan, 2018 Mood disorder F39 [place] [id number] [place] [address] 48144- 5463 11 Jan, 2018 Dermatomyositis M33.90 and BMI 40.0-44.9, adult Z68.41 [place] [id number] [place] [address] 20744- 3462 10 Jan, 2018 [place] [id number] [place] [address] 12889- 0564 05 Jan, 2018 [place] [id number] [place] [address] 29509- 2493 04 Jan, 2018 Irritation of left eye H57.8 and BMI 40.0-44.9, adult Z68.41 [place] [id number] [place] [address] 94640- 5065 Dec, Diabetes type 2, controlled E11.9 [place] [id number] [place] [address] 40133- 0396 30 Dec, 2017 Acute right ankle pain M25.571 [place] [id number] [place] [address] 02878- 7053 30 Dec, 2017 Other chronic pain G89.29 ; Diabetes type 2, controlled E11.9 ; Gait disturbance R26.9 ; Weakness R53.1 and Muscle spasm M62.838 [facility] [id number] [place] [address] 48610- 6891 Dec, Acute non-recurrent maxillary sinusitis J01.00 [facility] [id number] [place] [address] 22678- 6825 Dec, [facility] [address] 36461- 3034 Dec, [facility] [id number] [place] [address] 46820- 8220 Dec, Acute non-recurrent maxillary sinusitis J01.00 [facility] [id number] [place] [address] 83439- 5590 Dec, Lumbago with sciatica, right side M54.41 and Lupus erythematosus L93.0 [facility] [id number] [place] [address] 51527- 7195 Dec, Mood disorder F39 [facility] [id number] [place] [address] 08088- 7112 Dec, Mood disorder F39 [facility] [id number] [place] [address] 24498- 3772 Dec, [facility] [id number] [place] [address] 76992- 1759 Dec, Acute right ankle pain M25.571 [facility] [id number] [place] [address] 60234- 5801 Nov, Lumbar radiculopathy M54.16 [facility] [address] 67464- 2602 Nov, [facility] [id number] [place] [address] 38166- 2802 Nov, Mood disorder F39 [facility] [id number] [place] [address] 59725- 5881 Nov, Lumbago with sciatica, right side M54.41 and Other chronic pain G89.29 [facility] [id number] [place] [address] 40827- 9210 Nov, Acute right ankle pain M25.571 [facility] [id number] [place] [address] 67328- 7311 Nov, [facility] [id number] [place] [address] 29284- 0195 Oct, [facility] [id number] [place] [address] 88148- 9648 Oct, Plantar wart of both feet B07.0 [facility] [id number] [place] [address] 49826- 5117 Oct, [facility] [id number] [place] [address] 66173- 4578 Oct, Acute right ankle pain M25.571 and Plantar wart of both feet B07.0 [facility] [id number] [place] [address] 28455- 3744 September, Other chronic pain G89.29 [facility] [id number] [place] [address] 80367- 6914 September, Other chronic pain G89.29 [facility] [id number] [place] [address] 72409- 7977 September, Other chronic pain G89.29 [facility] [id number] [place] [address] 09238- 6510 Aug, Mood disorder F39 [facility] [id number] [place] [address] 97889- 8565 Aug, Other chronic pain G89.29 ; Controlled type 2 diabetes mellitus without complication, without long-term current use of insulin E11.9 ; Low back pain M54.5 and Tinea corporis B35.4 [place] [address] [place] [address]- 2339 Aug, Mood disorder F39 and Anxiety F41.9 [place] [address] 40545- 9465 Aug, Mood disorder F39 and Anxiety F41.9 [place] [address] 76276- 3496 Jul, [facility] [address] 33220 -3148 Jul, Scabies B86 and BMI 45.0-49.9, adult Z68.42 [place] [address] 48354- 6847 Jul, [place] [address] 05697- 5162 Jul, Mood disorder F39 and Anxiety F41.9 [place] [address] 12848- 1663 Jul, [facility] [place] [id number] [place] [address] 01436 -1251 27 Jun, 2017 Bronchitis J40 ; Dark urine R82.99 and BMI 45.0-49.9, adult Z68.42 [place] [id number] [place] [address] 04886- 1305 14 Jun, 2017 Acute pain of right shoulder M25.511 and Acute pain of right knee M25.561 [place] [id number] [place] [address] 43343- 3008 May, BMI 40.0-44.9, adult Z68.41 ; Controlled type 2 diabetes mellitus without complication, without long-term current use of insulin E11.9 ; Muscle cramping R25.2 ; Hot flashes R23.2 ; Mood disorder F39 ; Anxiety F41.9 and Morbid (severe) obesity due to excess calories E66.01 [place] [address] 92141- 2088 May, BMI 40.0-44.9, adult Z68.41 ; Controlled type 2 diabetes mellitus without complication, without long-term current use of insulin E11.9 ; Muscle cramping R25.2 and Hot flashes R23.2 [place] [id number] [place] [address] 86129- 0366 May, Tachycardia with heart rate 121-140 beats per minute R00.0 ; Morbid (severe) obesity due to excess calories E66.01 ; Diabetes type 2, controlled E11.9 and Enlarged thyroid gland E04.[address] 44730- 6988 25 May, 2017 Encounter for well woman [...] Dysuria R30.0 and Screening breast examination Z12.[address] 45591- 6664 Apr, Mood disorder F39 ; Other chronic pain G89.29 and Anxiety F41.[address] 18075- 8989 Apr, Lumbago with sciatica, left side M54.42 and Other chronic pain G89.[address] 35679- 4012 Apr, Lupus erythematosus L93.[address] 75112- 4799 Mar, Plantar wart of both feet B07.[address] 40054- 2270 Mar, Lupus erythematosus L93.0 and Sinus drainage J34.89 [facility] [id number] [place] [address] 75013- 5134 Mar, Mood disorder F39 ; Other chronic pain G89.29 and Anxiety F41.9 [facility] [id number] [place] [address] 42828- 7376 Mar, Mood disorder F39 ; Arthritis M19.90 and Plantar warts B07.0 [facility] [id number] [place] [address] 21700- 6053 Feb, Lupus erythematosus L93.0 [facility] [id number] [place] [address] 30736- 7596 Feb, Other chronic pain G89.29 [facility] [id number] [place] [address] 15378- 9524 Feb, Mood disorder F39 and Anxiety F41.9 [facility] [id number] [place] [address] 94234- 2946 Jan, [facility] [address] 12641- 9838 Jan, Mood disorder F39 [facility] [id number] [place] [address] 93079- 5748 Dec, Nail, ingrown L60.0 [facility] [id number] [place] [address] 54611- 8001 Dec, Nail, ingrown L60.0 [facility] [id number] [place] [address] 41525- 1381 Nov, Mood disorder F39 and Anxiety F41.9 [facility] [id number] [place] [address] 99615- 9338 Nov, Sinus drainage J34.89 ; Hot flashes R23.2 ; Anxiety F41.9 and Diabetes type 2, controlled E11.9 [facility] [id number] [address]- 5777 Nov, Nail, ingrown L60.0 [facility] [id number] [place] [address] 01515- 9508 Oct, Anxiety F41.9 and Mood disorder F39 [facility] [id number] [place] [address] 92298- 7156 Oct, Nail, ingrown L60.0 and Anxiety F41.9 [facility] [id number] [place] [address] 76436- 9097 Oct, Lupus erythematosus L93.0 [facility] [id number] [place] [address] 80624- 7789 September, [facility] [id number] [place] [address] 07971- 4603 September, [facility] [id number] [place] [address] 44801- 2009 September, Lupus erythematosus L93.0 [facility] [id number] [place] [address] 14587- 9087 Aug, [facility] [id number] [place] [address] 10220- 1955 Aug, Mood disorder F39 and Anxiety F41.9 [facility] [id number] [place] [address] 17619- 6064 Aug, Lupus erythematosus L93.0 ; Diabetes type 2, controlled E11.9 and Localized edema R60.0 [facility] [address] [place] [address] 37416- 8911 Aug, [facility] [id number] [place] [address] 77183- 4068 Jul, Anxiety F41.9 and Mood disorder F39 [facility] [address] [address]- 3955 Jul, Diabetes type 2, controlled E11.9 [facility] [id number] [place] [address] 10544- 9136 13 Jun, 2016 Anxiety F41.9 [facility] [id number] [place] [address] 89259- 6911 May, [facility] [id number] [place] [address] 44350- 4861 May, [facility] [address] 44702- 1098 May, Nausea R11.0 ; Other chronic pain G89.29 and Pain in right knee M25.561 [place] [address] 10964- 6221 May, [place] [id number] [place] [address] 91763- 4054 Apr, Tear of medial meniscus of right knee, current, unspecified tear type, subsequent encounter S83.241D and Tear of lateral meniscus of right knee, current, unspecified tear type, subsequent encounter S83.281D [facility] [id number] [place] [address] 35563- 3493 Apr, Anxiety F41.9 and Mood disorder F39 [place] [id number] [place] [address] 22734- 5262 Apr, Anxiety F41.9 [facility] [id number] [place] [address] 03473- 2998 Apr, [facility] [address] [place] [address] 31851- 4109 Mar, [facility] [id number] [place] [address] 98345- 9666 Mar, Lupus erythematosus L93.0 and Diabetes type 2, controlled E11.9 [facility] [address] [place] [address] 46012- 6384 Mar, Mood disorder F39 [facility] [address] [place] [address] 54271- 2406 Mar, Tear of lateral meniscus of right knee, current, unspecified tear type, initial encounter S83.281A and Osteoarthritis of right knee, unspecified osteoarthritis type M17.9 [facility] [id number] [place] [address] 83774- 7546 Mar, [facility] [id number] [place] [address] 79406- 3587 Feb, Mood disorder F39 [facility] [id number] [place] [address] 08064 2545 Feb, Rash R21 [facility] [id number] [place] [address] 06408- 8946 Feb, [facility] [id number] [place] [address] 82245- 6949 Jan, Other chronic pain G89.29 and Muscle spasm M62.838 [facility] [id number] [place] [address] 27551 2546 Jan, Mood disorder F39 [facility] [id number] [place] [address] 46156 2540 Jan, Pain in right knee M25.561 ; Other chronic pain G89.29 and Muscle spasm M62.838 [facility] [address] [place] [address] 69605 2546 Dec, [facility] [id number] [place] [address] 46353 2546 Dec, [facility] [id number] [place] [address] 92237 2545 Nov, [facility] [id number] [place] [address] 53538- 3552 Nov, Mood disorder F39 [facility] [address] [place] [address] 90464- 9955 Nov, Diabetes type 2, controlled E11.9 ; Bronchitis J40 ; Edema, unspecified type R60.9 ; Weight gain R63.5 and Right knee pain, unspecified chronicity M25.561 [place] [id number] [place] [address] 39731- 7853 Oct, Mood disorder F39 [place] [id number] [place] [address] 04087- 1967 Oct, Lupus erythematosus L93.0 and Bilateral edema of lower extremity R60.0 [place] [id number] [place] [address] 19380- 0788 Oct, Mood disorder F39 and Anxiety F41.9 [place] [address] 40417- 7053 September, Mood disorder F39 ; Anxiety F41.9 and Anger reaction R45.4 [place] [address] 35341- 7359 September, Diabetes type 2, controlled E11.9 ; Edema, unspecified type R60.9 and Fatigue, unspecified type R53.83 [place] [address] 20844- 6841 Aug, Mood disorder F39 and Generalized anxiety disorder F41.1 [place] [id number] [place] [address] 24264- 2363 Aug, Diabetes type 2, controlled E11.9 ; Sinusitis J32.9 and Mood disorder F39 [place] [id number] [place] [address] 99600- 3764 15 Aug, 2015 Lupus erythematosus L93.0 [place] [address] 45641- 9167 14 Aug, 2015 [place] [id number] [place] [address] 55052- 3943 Aug, [place] [address] 28951- 0939 Jul, Diabetes type 2, controlled E11.9 [facility] [id number] [address]- 5067 Jul, Mood disorder F39 and Depression F32.9 [facility] [id number] [place] [address] 49802- 2261 Jul, Lupus erythematosus L93.0 and Diabetes type 2, controlled E11.9 [facility] [id number] [place] [address] 73378- 7629 Jul, Mood disorder F39 and Anxiety F41.9 [facility] [id number] [place] [address] 02724- 8698 Jul, [facility] [id number] [place] [address] 25803- 4990 Jul, [facility] [id number] [place] [address] 34813- 5505 Jun, Mood disorder F39 and Anxiety F41.9 [facility] [address] [place] [address] 17257- 7913 Jun, Mood disorder F39 [facility] [id number] [place] [address] 39486- 6396 Jun, [facility] [id number] [place] [address] 72006- 3202 Jun, [facility] [id number] [place] [address] 11180- 7296 Jun, Mood disorder F39 [facility] [address] [address]- 3373 Jun, [facility] [id number] [place] [address] 89502- 4390 May, [facility] [address] [address]- 2006 May, [facility] [id number] [place] [address] 54678- 2623 May, [facility] [id number] [place] [address] 91588- 8980 May, [facility] [id number] [place] [address] 87179- 4400 May, Anxiety F41.9 ; Dermatomyositis M33.90 and Diabetes type 2, controlled E11.9 [facility] [id number] [place] [address] 77107 -4532 May, Sinusitis J32.9 and Cough R05 [facility] [id number] [place] [address] 08589- 2289 May, Mood disorder F39 [facility] [id number] [place] [address] 70882- 4302 May, Adjustment disorder with mixed anxiety and depressed mood F43.23 [facility] [id number] [place] [address] 46632- 4972 Apr, [facility] [id number] [place] [address] 65943- 8371 Apr, [facility] [id number] [place] [address] 13065- 7028 Apr, Generalized anxiety disorder F41.1 and Mood disorder F39 [facility] [id number] [place] [address] 60819- 8889 Mar, [facility] [id number] [place] [address] 44464- 5714 Mar, [facility] [id number] [place] [address] 45714- 2770 Mar, [facility] [id number] [place] [address] 51133- 3865 Mar, Mood disorder F39 [facility] [id number] [place] [address] 60382- 8723 Feb, [place] [id number] [place] [address] 93754- 2808 Feb, Diabetes E11.9 and Bronchitis J40 [facility] [facility] [id number] [place] [address] 62645- 1412 Feb, [place] [address] [address]- 2914 Feb, [place] [facility] [id number] [place] [address] 23175- 0812 Feb, Major depression, recurrent, full remission F33.42 and KELLY ( generalized anxiety disorder) F41.[address] [address]- [address]70 Feb, [address] [address]10- 5493 Feb, Single major depressive episode, in partial or unspecified remission F32.5 [facility] [facility] [id number] [place] [address] 40845- 7308 Jan, Fatigue 780.79 [facility] [id number] [place] [address] 45731- 8685 Jan, [facility] [facility] [id number] [place] [address] 54618- 1620 Jan, Diabetes with other specified manifestations, type II or unspecified type, not stated as uncontrolled 250.80 [facility] [facility] [id number] [place] [address] 25686- 7466 Jan, [facility] [facility] [id number] [place] [address] 86185- 2473 Dec, Hot flashes 627.2 ; Memory loss 780.93 and Joint pain 719.40 [facility] [facility] [id number] [place] [address] 54693- 8218 Dec, Major depression, recurrent 296.30 ; Generalized anxiety disorder 300.02 ; Adjustment disorder with depressed mood 309.0 and No condition on Lovell II V71.09 [place] [id number] [address] Dec, [place] [id number] [place] [address] 95664- 4726 Nov, Cognitive and neurobehavioral dysfunction 294.9 ; Major depressive disorder, recurrent episode, moderate degree 296.32 and Anxiety state , unspecified [address] [place] [id number] [place] [address] 52007- 8873 Nov, [place] [id number] [place] [address] 57527- 6953 Nov, Bronchitis 490 and Diabetes with other specified manifestations, type II or unspecified type, not stated as uncontrolled 250.80 [id number] [place] [address] 14626- 0617 Nov, Major depressive disorder, recurrent episode, moderate 296.32 and Anxiety disorder, unspecified 300.[address] [place] [address], [place] [address] Nov, Anxiety, generalized 300.02 ; Intermittent explosive disorder 312.34 ; No condition on Lovell II V71.09 and No condition on axis III V71.09 [place] [address] [address] 9[address] Oct, Diabetes with other specified manifestations, type II or unspecified type, not stated as uncontrolled 250.80 ; Urinary tract infection, site not specified 599.0 and Bronchitis 490 [place] [address], [place] [address] 0919 Oct, Intermittent explosive disorder 312.34 ; Bipolar 1 disorder , depressed, moderate 296.52 ; Major depression, chronic 296.20 ; No condition on Lovell II V71.09 and No condition on axis III V71.09 [place] [id number] [address] Oct, Major depressive disorder, recurrent episode, moderate 296.32 ; Anxiety state 300.00 ; Cognitive decline 294.9 and No condition on Lovell II V71.09 [facility] [address] [address] 30[address] Oct, [facility] [id number] [place] [address] 405538- 3726 Oct, Major depressive disorder, recurrent episode, moderate 296.32 ; Anxiety disorder, unspecified 300.00 and Persistent disorder of initiating or maintaining sleep 307.42 [facility] [id number] [place] [address] 92793- 1601 September, Diabetes with other specified manifestations, type II or unspecified type, not stated as uncontrolled 250.80 ; Memory loss 780.93 and Cognitive complaints 799.59 [facility] [id number] [place] [address] 74575- 5937 September, No condition on Lovell II V71.09 ; Major depression, recurrent 296.30 and Persistent mood [affective] disorder, unspecified 296.90 [facility] [id number] [address] 7027 Aug, [facility] [id number] [place] [address] 90068- 6996 Aug, [facility] [id number] [place] [address] 04812- 0769 Aug, [facility] [address] [address]- 2768 Jul, [facility] [id number] [address]- 1797 Jul, [facility] [address] [address]- 8588 Jul, [facility] [id number] [place] [address] 675722- 6824 Jul, [facility] [address] 2314 Jul, [facility] [id number] [place] [address]- 8847 Jun, 2014 [facility] [place] [facility] [address] [id number] [place] [address]- 1267 Jun, 2014 [facility] [place] [facility] [address] [id number] [place] [address]- 8086 Jun, 2014 [facility] [place] [facility] [address] [id number] [place] [address]- 0360 Jun, 2014 [facility] [place] [facility] [address] [id number] [place] [address]- 6974 Jun, 2014 [facility] [place] [facility] [address] [id number] [place] [address]- 7131 Jun, 2014 [facility] [place] [facility] [address] [facility] [id number] [place] [address]- 7897 Jun, 2014 [facility] [place] [facility] [address] [facility] [id number] [place] [address]- 0163 Jun, 2014 [facility] [place] [facility] [address] [facility] [id number] [place] [address]- 2470 Jun, 2014 [facility] [place] [facility] [address] [facility] [id number] [place] [address]- 9489 Jun, 2014 [facility] [place] [facility] [address] [facility] [id number] [place] [address]- 1788 Jun, 2014 [facility] [place] [facility] [address] [facility] [id number] [address]- 4466 Jun, 2014 [facility] [place] [facility] [address] [facility] [id number] [place] [address]- 2983 Jun, 2014 [facility] [place] [facility] [address] [id number], [place] [address]- 4009 May, [facility] [place] [facility] [address] [facility] [id number] [place] [address]- 4913 May, [facility] [place] [facility] [address] [id number] [place] [address]- 9470 Apr, [facility] [place] [facility] [address] [id number] [place] [address]- 9209 Apr, [facility] [place] [facility] [address] [id number] [place] [address]- 6666 Apr, [facility] [place] [facility] [address] [id number] [place] [address]- 0974 Apr, [facility] [place] [facility] [address] [id number] [place] [address]- 7574 Apr, [facility] [place] [facility] [address] [id number] [place] [address]- 9926 Apr, [facility] [place] [facility] [address] [id number] [place] [address]- 1202 Apr, [facility] [place] [facility] [address] [id number] [place] [address]- 1643 Apr, [facility] [place] [facility] [address] [id number] [place] [address]- 1631 Apr, [facility] [place] [facility] [address] [id number] [place] [address]- 9815 Apr, [facility] [place] [facility] [address] [id number] [place] [address]- 2576 Apr, [facility] [place] [facility] [address] [id number] [place] [address]- 0919 Apr, [facility] [place] [facility] [address] [id number] [place] [address]- 3775 Apr, [facility] [place] [facility] [address] [id number] [place] [address]- 5452 Apr, [facility] [place] [facility] [address] [id number] [place] [address]- 7401 Apr, [facility] [place] [facility] [address] [id number] [place] [address]- 6615 Apr, [facility] [place] [facility] [address] [id number] [place] [address]- 9561 Apr, [facility] [place] [facility] [address] [id number] [place] [address]- 0943 Apr, [facility] [place] [facility] [address] [id number] [place] [address]- 7745 Apr, [facility] [place] [facility] [address] [id number] [place] [address]- 3150 Apr, [facility] [place] [facility] [address] [id number] [place] [address]- 9932 Mar, [facility] [place] [facility] [address] [id number] [place] [address]- 6351 Mar, [facility] [place] [facility] [address] [id number] [place] [address]- 6424 Mar, [facility] [place] [facility] [address] [id number] [place] [address]- 6969 Mar, [facility] [place] [facility] [address] [id number] [place] [address]- 7355 Mar, [facility] [place] [facility] [address] [id number] [place] [address]- 7070 Mar, [facility] [place] [facility] [address] [id number] [place] [address]- 7485 Mar, [facility] [place] [facility] [address] [id number] [place] [address]- 2022 Mar, [facility] [place] [facility] [address] [id number] [place] [address]- 2662 Mar, [facility] [place] [facility] [address] [id number] [place] [address]- 5280 Mar, [facility] [place] [facility] [address] [id number] [place] [address]- 5363 Mar, [facility] [place] [facility] [address] [id number] [place] [address]- 9482 Mar, [facility] [place] [facility] [address] [id number] [place] [address]- 4032 Mar, [facility] [place] [facility] [address] [id number] [place] [address]- 5567 Feb, [facility] [place] [facility] [address] [id number] [place] 3158 Feb, [facility] [place] [facility] [address] [id number] [place] 6100 Feb, [facility] [place] [facility] [address] [id number] [place] [address]- 5465 Feb, [facility] [place] [facility] [address] [id number] [place] [address]- 3821 Feb, [facility] [place] [facility] [address] [id number] [place] [address]- 2397 Feb, [facility] [place] [facility] [address] [id number] [place] [address]- 7481 Feb, [facility] [place] [facility] [address] [id number] [place] [address]- 9515 Feb, [facility] [place] [facility] [address] [id number] [place] [address]- 8827 Feb, [facility] [place] [facility] [address] [id number], [place] [address]- 1292 Feb, [facility] [place] [facility] [address] [id number], [place] [address]- 8206 Feb, [facility] [place] [facility] [address] [id number] [place] [address]- 9064 10 Feb, 2014 [facility] [place] [facility] [address] [id number], [place] [address]- 7680 10 Feb, 2014 [facility] [place] [facility] [address] [id number] [place] [address] Feb, [facility] [place] [facility] [address] [id number] [place] [address]- 2709 07 Feb, 2014 [facility] [place] [facility] [address] [id number] [place] [address]- 1929 Jan, [facility] [place] [facility] [address] [id number] [place] [address]- 0636 Jan, [facility] [place] [facility] [address] [id number] [place] [address]- 5086 Jan, [facility] [place] [facility] [address] [id number] [place] [address]- 2094 Jan, [facility] [place] [facility] [address] [id number] [place] [address]- 3411 Jan, [facility] [place] [facility] [address] [id number] [place] [address]- 1158 Dec, [facility] [place] [facility] [address] [id number] [place] [address]- 8130 Dec, [facility] [place] [facility] [address] [id number] [place] [address]- 5613 Dec, [facility] [place] [facility] [address] [id number] [place] [address]- 7330 Dec, [facility] [place] [facility] [address] [id number] [place] [address]- 0981 Nov, [facility] [place] [facility] [address] [id number] [place] [address]- 7166 Nov, [facility] [place] [facility] [address] [id number] [place] [address]- 7649 Nov, [facility] [place] [facility] [address] [id number] [place] [address]- 8558 Nov, [facility] [place] [facility] [address] [id number] [place] [address]- 1770 Nov, [facility] [place] [facility] [address] [id number] [place] [address]- 4125 Nov, [facility] [place] [facility] [address] [id number] [place] [address]- 4222 Nov, [facility] [place] [facility] [address] [id number] [place] [address]- 1694 Nov, [facility] [place] [facility] [address] [id number] [place] [address]- 8532 Nov, [facility] [place] [facility] [address] [id number] [place] [address]- 9569 Nov, [facility] [place] [facility] [address] [id number] [place] [address]- 7405 Oct, [facility] [place] [facility] [address] [id number] [place] [address]- 6287 Oct, [facility] [place] [facility] [address] [id number] [place] [address]- 7689 September, [facility] [place] [facility] [address] [id number] [place] [address]- 9427 September, [facility] [place] [facility] [address] [id number] [place] [address]- 8316 September, [facility] [place] [facility] [address] [id number] [place] [address]- 1743 September, [facility] [place] [facility] [address] [id number] [place] [address]- 0537 Aug, [facility] [place] [facility] [address] [id number] [place] [address]- 9447 Aug, [facility] [place] [facility] [address] [id number] [place] [address]- 4220 Aug, [facility] [place] [facility] [address] [id number] [place] [address]- 0619 Jul, [facility] [place] [facility] [address] [id number] [place] [address]- 9866 Jul, [facility] [place] [facility] [address] [id number], [place] [address]- 6231 14 Jul, 2013 [facility] [place] [facility] [address] [id number] [place] [address]- 7634 14 Jul, 2013 [facility] [place] [facility] [address] [id number] [place] [address]- 4804 20 May, 2013 [facility] [place] [facility] [address] [id number] [place] [address]- 9904 17 May, 2013 [facility] [place] [facility] [address] [id number] [place] [address]- 5584 17 May, 2013 [facility] [place] [facility] [address] [id number] [place] [address]- 4005 15 Mar, 2013 [facility] [place] [facility] [address] [id number] [place] [address]- 1524 15 Mar, 2013 [facility] [place] [facility] [address] [id number] [place] [address]- 1380 Mar, [facility] [place] [facility] [address] [id number] [place] [address]- 3806 Mar, [facility] [place] [facility] [address] [id number] [place] [address]- 5438 16 Feb, 2013 [facility] [place] [facility] [address] [id number] [place] [address]- 4005 16 Feb, 2013 [facility] [place] [facility] [address] [id number], [place] [address]- 5864 04 Feb, 2013 [facility] [place] [facility] [address] [id number], [place] [address]- 7517 16 Jan, 2013 [facility] [place] [facility] [address] [id number] [place] [address]- 8339 12 Jan, 2013 [facility] [place] [facility] [address] [id number] [place] [address]- 3873 09 Jan, 2013 [facility] [place] [facility] [address] [id number] [place] [address]- 9056 Dec, [facility] [place] [facility] [address] [id number] [place] [address]- 1612 Dec, [facility] [address] [id number] [place] [address]- 1595 Dec, [facility] [address] [id number] [place] [address] 2546 Dec, [facility] [address] [id number] [place] [address]- 1745 Nov, [facility] [address] [id number] [place] [address]- 7491 Oct, [facility] [address] [id number] [place] [address]- 0237 Oct, [facility] [address] [id number] [place] [address]- 9937 September, [facility] [address] [id number] [place] [address]- 7545 September, [facility] [address] [id number] [place] [address]- 1819 September, [facility] [address] [id number] [place] [address]- 6083 Aug, [facility] [address] [id number] [place] [address]- 7601 Aug, [facility] [address] [id number] [place] [address]- 8755 Aug, [facility] [address] [id number] [place] [address]- 5419 Aug, [facility] [place] [facility] [address] [id number] [place] [address]- 9719 Jul, [facility] [place] [facility] [address] [id number] [place] [address]- 7446 Jul, [facility] [place] [facility] [address] [id number] [place] [address]- 6147 Jul, [facility] [address] [id number] [place] [address]- 2505 15 Jul, 2012 [facility] [place] [facility] [address] [id number] [place] [address]- 7228 14 Jul, 2012 [facility] [place] [facility] [address] [id number] [place] [address]- 1452 13 Jul, 2012 [facility] [place] [facility] [address] [id number] [place] [address]- 6078 13 Jul, 2012 [facility] [place] [facility] [address] [id number] [place] [address]- 7306 Jun, [facility] [place] [facility] [address] [id number] [place] [address]- 3713 Jun, [facility] [place] [facility] [address] [id number] [place] [address]- 3449 Jun, [facility] [place] [facility] [address] [id number] [place] [address]- 1030 Jun, [facility] [place] [facility] [address] [id number] [place] [address]- 6271 May, [facility] [place] [facility] [address] [id number] [place] [address]- 3391 May, [facility] [place] [facility] [address] [id number] [place] [address]- 0659 May, [facility] [place] [facility] [address] [id number] [place] [address]- 2068 May, [facility] [place] [facility] [address] [id number] [place] [address]- 0933 May, [facility] [place] [facility] [address] [id number] [place] [address]- 6769 Apr, [facility] [place] [facility] [address] [id number] [place] [address]- 3766 Apr, [facility] [place] [facility] [address] [id number] [place] [address]- 0080 Mar, [facility] [place] [facility] [address] [id number] [place] [address]- 8029 Mar, [facility] [place] [facility] [address] [id number] [place] [address]- 0738 Mar, [facility] [place] [facility] [address] [id number] [place] [address]- 7205 Mar, [facility] [place] [facility] [address] [id number] [place] [address]- 2362 Mar, [facility] [place] [facility] [address] [id number] [place] [address]- 4010 Mar, [facility] [place] [facility] [address] [id number] [place] [address]- 6392 Mar, [facility] [place] [facility] [address] [id number] [place] [address]- 5355 Mar, [facility] [place] [facility] [address] [id number] [place] [address]- 2209 Mar, [facility] [place] [facility] [address] [id number] [place] [address]- 9329 Mar, [facility] [place] [facility] [address] [facility] [id number] [place] [address]- 4839 Feb, [facility] [place] [facility] [address] [id number] [place] [address]- 2738 Feb, [facility] [place] [facility] [address] [id number] [place] [address]- 7620 Feb, [facility] [place] [facility] [address] [id number] [place] [address]- 1037 Feb, [facility] [place] [facility] [address] [facility] [id number] [place] [address]- 9354 Feb, [facility] [place] [facility] [address] [id number] [place] [address]- 5914 Feb, [facility] [place] [facility] [address] [id number] [place] [address]- 5977 Feb, [facility] [place] [facility] [address] [id number] [place] [address]- 5156 Jan, [facility] [place] [facility] [address] [id number] [place] [address]- 5894 Jan, [facility] [place] [facility] [address] [id number] [place] [address]- 0300 Dec, [facility] [place] [facility] [address] [id number] [place] [address]- 0940 Dec, [facility] [place] [facility] [address] [id number] [place] [address]- 7443 Dec, [facility] [place] [facility] [address] [id number] [place] [address]- 5140 Dec, [facility] [place] [facility] [address] [id number] [place] [address]- 3532 Dec, [facility] [place] [facility] [address] [id number] [place] [address]- 0410 Dec, [facility] [place] [facility] [address] [id number] [place] [address]- 5519 Nov, [facility] [place] [facility] [address] [id number] [place] [address]- 3247 Nov, [facility] [place] [facility] [address] [id number] [place] [address]- 0151 Nov, [facility] [place] [facility] [address] [id number] [place] [address] Nov, [facility] [place] [facility] [address] [id number] [place] [address] September, [facility] [place] [facility] [address] [id number] [place] [address] September, [facility] [place] [facility] [address] [id number], [place] [address] September, [facility] [id number] [address] Jul, [facility] [id number], [place] [address] 29 Jun, 2011 [facility] [id number], [place] [address] 20 Jun, 2011 [facility] [id number] [address] Jun, [facility] [id number] [place] [address] Apr, [facility] [id number] [address] Mar, [facility] [id number] [address] Mar, [facility] [id number] [address] Feb, [facility] [id number] [address] Feb, [facility] [id number] [address] [address] Feb, [facility] [id number] [place] [address] Jul, [facility] [id number] [id number] Feb, IMMUNIZATIONS No Known Immunizations SOCIAL HISTORY [...]
--- OUTSIDE RECORDS SUMMARY | 2018-05-09 23:20 | XMS REPORT ---
Author Author MACY TAMAYO [facility] Address [address] [place] [address] Care Team Providers Care Bioinformatics Team Member Name Role Phone MACY TAMAYO Unavailable PROBLEMS Type Condition ICD9-CM Code HPE19-ZO Code Onset Dates Condition Status SNOMED Code Problem Tachycardia with heart rate 121-140 beats per minute R00.0 Active 1260827 Problem Enlarged thyroid gland E04.9 Active 8626874 Problem Body mass index (BMI) of 45.0-49.9 in adult Z68.42 Active 985411899 Problem Other specified mental disorders due to known physiological condition F06.8 Active 85326055 Problem Mood disorder F39 Active 36567791 Problem Frequent falls R29.6 Active 431668274 Problem Allergic rhinitis due to pollen J30.1 Active 45248979 Problem Menopause Z78.0 Active 544881266 Problem Lumbago with sciatica, right side M54.41 Active 904475535 Problem Dermatomyositis M33.90 Active 301575649 Problem Facial droop R29.810 Active 36863644 Problem Gait disturbance R26.9 Active 69385801 Problem Anxiety F41.9 Active 17000683 Problem Other chronic pain G89.29 Active 53602767 Problem Diabetes type 2, controlled E11.9 Active 91864184 Problem Osteoarthritis of right knee, unspecified osteoarthritis type M17.9 Active 172552590 Problem Plantar wart of both feet B07.0 Active [id number] Problem Lumbago with sciatica, left side M54.42 Active 617964259 Problem Arthritis M19.90 Active 1807375 Problem Controlled type 2 diabetes mellitus without complication, without long -term current use of insulin E11.9 Active 682825484 Problem Plantar warts B07.0 Active 00160453 Problem Morbid (severe) obesity due to excess calories E66.01 Active 027152356 ALLERGIES Substance Reaction Event Type Date Status Fluarix Quadrivalent vomiting Drug Allergy Jan, Active Zoloft makes very angry Drug Allergy Jan, Active Fluarix vomiting Drug Allergy Jan, Active Aspirin rash Drug Allergy Jan, Active Latex, Natural Rubber rash Non Drug Allergy Jan, Active ENCOUNTERS Encounter Location Date Diagnosis [place] [id number] [place] [address] 58859- 5534 Mar, [place] [id number] [place] [address] 21633- 5335 Feb, [place] [address] 64668- 2630 Feb, [place] [address] 20822- 2346 Feb, BMI 45.0-49.9, adult Z68.42 ; Gait disturbance R26.9 ; Other specified mental disorders due to known physiological condition F06.8 ; Weakness R53.1 ; Frequent falls R29.6 and Self-care deficit for bathing R46.0 [place] [id number] [place] [address] 19836- 4758 Feb, [place] [id number] [place] [address] 32506- 6912 Jan, Mood disorder F39 [place] [id number] [place] [address] 74130- 7762 Jan, BMI 45.0-49.9, adult Z68.42 and 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 [place] [id number] [place] [address] 38362- 5125 Jan, [place] [id number] [place] [address] 92935- 0314 Jan, [place] [id number] [place] [address] 92242- 7048 Jan, [place] [id number] [place] [address] 82186- 8103 Jan, 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 [place] [id number] [place] [address] 23767- 8733 Jan, [facility] [address] 81585- 7044 Jan, [facility] [id number] [place] [address] 71125- 2757 Jan, [facility] [address] 37802- 2923 19 Jan, 2018 Allergic reaction to drug, initial encounter T78.40XA [place] [address] 02379- 4784 17 Jan, 2018 BMI 45.0-49.9, adult Z68.42 and Facial droop R29.810 [place] [address] 26882- 1446 14 Jan, 2018 Mood disorder F39 [place] [address] 21844- 1117 11 Jan, 2018 Dermatomyositis M33.90 and BMI 40.0-44.9, adult Z68.41 [place] [address] 33986- 5815 10 Jan, 2018 [place] [id number] [place] [address] 39426- 0644 05 Jan, 2018 [place] [address] 25907- 7716 04 Jan, 2018 Irritation of left eye H57.8 and BMI 40.0-44.9, adult Z68.41 [place] [address] 70675- 7963 Dec, Diabetes type 2, controlled E11.9 [place] [id number] [place] [address] 29035- 1510 30 Dec, 2017 Acute right ankle pain M25.571 [place] [address] 03873- 3392 Dec, Other chronic pain G89.29 ; Diabetes type 2, controlled E11.9 ; Gait disturbance R26.9 ; Weakness R53.1 and Muscle spasm M62.838 [facility] [id number] [place] [address] 83720- 9269 Dec, Acute non-recurrent maxillary sinusitis J01.00 [facility] [id number] [place] [address] 83497- 3537 Dec, [facility] [id number] [place] [address] 44055- 6928 Dec, [facility] [address] 73469- 1250 Dec, Acute non-recurrent maxillary sinusitis J01.00 [facility] [id number] [place] [address] 46543- 8911 Dec, Lumbago with sciatica, right side M54.41 and Lupus erythematosus L93.0 [facility] [id number] [place] [address] 17429- 5309 Dec, Mood disorder F39 [facility] [id number] [place] [address] 25713- 4449 Dec, Mood disorder F39 [facility] [id number] [place] [address] 00111- 4321 Dec, [facility] [id number] [place] [address] 73717- 2259 Dec, Acute right ankle pain M25.571 [facility] [address] 87120- 0919 Nov, Lumbar radiculopathy M54.16 [facility] [id number] [place] [address] 03708- 4827 Nov, [facility] [address] 00648- 3505 Nov, Mood disorder F39 [facility] [address] [address]- 7387 Nov, Lumbago with sciatica, right side M54.41 and Other chronic pain G89.29 [facility] [address] [address]- 7708 Nov, Acute right ankle pain M25.571 [facility] [id number] [place] [address] 50720- 0025 Nov, [facility] [id number] [place] [address] 22174- 5438 Oct, [facility] [id number] [place] [address] 66750- 3172 Oct, Plantar wart of both feet B07.0 [facility] [id number] [place] [address] 55534- 9254 Oct, [facility] [id number] [place] [address] 83794- 1726 Oct, Acute right ankle pain M25.571 and Plantar wart of both feet B07.0 [facility] [id number] [place] [address] 57829- 9342 September, Other chronic pain G89.29 [facility] [address] [address]- 3766 September, Other chronic pain G89.29 [facility] [address] [address]- 1072 September, Other chronic pain G89.29 [facility] [id number] [place] [address] 31400- 5283 Aug, Mood disorder F39 [facility] [address] [address]- 0906 Aug, Other chronic pain G89.29 ; Controlled type 2 diabetes mellitus without complication, without long-term current use of insulin E11.9 ; Low back pain M54.5 and Tinea corporis B35.4 [place] [address] 31418- 0229 Aug, Mood disorder F39 and Anxiety F41.9 [place] [address] 66069- 3345 Aug, Mood disorder F39 and Anxiety F41.9 [place] [address] 29550- 1227 Jul, [facility] [place] [address] 50255 -2768 Jul, Scabies B86 and BMI 45.0-49.9, adult Z68.42 [place] [address] 69375- 5557 Jul, [place] [address] 27421- 5119 Jul, Mood disorder F39 and Anxiety F41.9 [place] [address] 13338- 3904 Jul, [facility] [place] [address] 71628 -7516 27 Jun, 2017 Bronchitis J40 ; Dark urine R82.99 and BMI 45.0-49.9, adult Z68.42 [place] [address] 55923- 6974 14 Jun, 2017 Acute pain of right shoulder M25.511 and Acute pain of right knee M25.561 [place] [address] 18520- 9562 May, BMI 40.0-44.9, adult Z68.41 ; Controlled type 2 diabetes mellitus without complication, without long-term current use of insulin E11.9 ; Muscle cramping R25.2 ; Hot flashes R23.2 ; Mood disorder F39 ; Anxiety F41.9 and Morbid (severe) obesity due to excess calories E66.01 [place] [id number] [place] [address] 19563- 7933 May, BMI 40.0-44.9, adult Z68.41 ; Controlled type 2 diabetes mellitus without complication, without long-term current use of insulin E11.9 ; Muscle cramping R25.2 and Hot flashes R23.[address] 08980- 2392 May, Tachycardia with heart rate 121-140 beats per minute R00.0 ; Morbid (severe) obesity due to excess calories E66.01 ; Diabetes type 2, controlled E11.9 and Enlarged thyroid gland E04.9 [place] [address] 33712- 1358 25 May, 2017 Encounter for well woman [...] Dysuria R30.0 and Screening breast examination Z12.31 [place] [id number] [place] [address] 98706- 2294 Apr, Mood disorder F39 ; Other chronic pain G89.29 and Anxiety F41.9 [place] [id number] [place] [address] 15796- 6087 Apr, Lumbago with sciatica, left side M54.42 and Other chronic pain G89.29 [place] [id number] [place] [address] 71703- 5322 Apr, Lupus erythematosus L93.0 [place] [id number] [place] [address] 37964- 7051 Mar, Plantar wart of both feet B07.0 [facility] [id number] [place] [address] 53018- 0009 Mar, Lupus erythematosus L93.0 and Sinus drainage J34.89 [facility] [id number] [place] [address] 68254- 2546 Mar, Mood disorder F39 ; Other chronic pain G89.29 and Anxiety F41.9 [facility] [address] 86048- 8800 Mar, Mood disorder F39 ; Arthritis M19.90 and Plantar warts B07.0 [facility] [address] 672303- 3716 Feb, Lupus erythematosus L93.0 [facility] [address] 59193- 8200 Feb, Other chronic pain G89.29 [facility] [address] 61297- 7197 Feb, Mood disorder F39 and Anxiety F41.9 [facility] [address] 85580- 6382 Jan, [facility] [id number] [place] [address] 70949- 0254 Jan, Mood disorder F39 [facility] [address] 68905- 9584 Dec, Nail, ingrown L60.0 [facility] [id number] [place] [address] 10599- 6709 Dec, Nail, ingrown L60.0 [facility] [id number] [place] [address] 07902- 2536 Nov, Mood disorder F39 and Anxiety F41.9 [facility] [id number] [place] [address] 22890- 6045 Nov, Sinus drainage J34.89 ; Hot flashes R23.2 ; Anxiety F41.9 and Diabetes type 2, controlled E11.9 [facility] [id number] [place] [address] 67393- 1071 Nov, Nail, ingrown L60.0 [facility] [id number] [place] [address] 78122- 1616 Oct, Anxiety F41.9 and Mood disorder F39 [facility] [address] 37504- 8093 Oct, Nail, ingrown L60.0 and Anxiety F41.9 [facility] [address] 13292- 2733 Oct, Lupus erythematosus L93.0 [facility] [id number] [place] [address] 77806- 6797 September, [facility] [address] 17709- 5723 September, [facility] [id number] [place] [address] 13301- 9864 September, Lupus erythematosus L93.0 [facility] [id number] [place] [address] 49294- 6465 Aug, [facility] [id number] [place] [address] 42765- 2996 Aug, Mood disorder F39 and Anxiety F41.9 [facility] [id number] [place] [address] 26834- 2441 Aug, Lupus erythematosus L93.0 ; Diabetes type 2, controlled E11.9 and Localized edema R60.0 [facility] [id number] [place] [address] 99775- 1659 Aug, [facility] [id number] [place] [address] 65903- 1731 Jul, Anxiety F41.9 and Mood disorder F39 [facility] [id number] [place] [address] 93556- 6382 Jul, Diabetes type 2, controlled E11.9 [place] [address] 85587- 2025 Jun, Anxiety F41.9 [place] [id number] [place] [address] 82058- 3943 May, [place] [address] 36002- 6915 May, [place] [address] 78948- 6660 May, Nausea R11.0 ; Other chronic pain G89.29 and Pain in right knee M25.561 [place] [address] 30477- 8997 May, [place] [address] 73124- 9276 Apr, Tear of medial meniscus of right knee, current, unspecified tear type, subsequent encounter S83.241D and Tear of lateral meniscus of right knee, current, unspecified tear type, subsequent encounter S83.281D [place] [id number] [place] [address] 18575- 8590 Apr, Anxiety F41.9 and Mood disorder F39 [place] [id number] [place] [address] 22942- 3718 Apr, Anxiety F41.9 [place] [id number] [place] [address] 78006- 5590 Apr, [place] [address] 28597- 3908 Mar, [place] [id number] [place] [address] 83458- 4704 Mar, Lupus erythematosus L93.0 and Diabetes type 2, controlled E11.9 [place] [address] [place] [address]- 0092 Mar, Mood disorder F39 [facility] [id number] [place] [address] 86834- 7036 Mar, Tear of lateral meniscus of right knee, current, unspecified tear type, initial encounter S83.281A and Osteoarthritis of right knee, unspecified osteoarthritis type M17.9 [facility] [id number] [place] [address] 32681- 7096 Mar, [facility] [id number] [place] [address] 98400 2546 Feb, Mood disorder F39 [facility] [id number] [place] [address] 24433- 1026 Feb, Rash R21 [facility] [id number] [place] [address] 87463- 0786 Feb, [facility] [id number] [place] [address] 43852- 6949 Jan, Other chronic pain G89.29 and Muscle spasm M62.838 [facility] [id number] [place] [address] 39908 2546 Jan, Mood disorder F39 [facility] [id number] [place] [address] 19973 2546 Jan, Pain in right knee M25.561 ; Other chronic pain G89.29 and Muscle spasm M62.838 [facility] [id number] [place] [address] 69924 2546 Dec, [facility] [id number] [place] [address] 11673 2546 Dec, [facility] [id number] [place] [address] 57516 2546 Nov, [facility] [id number] [place] [address] 34245- 9196 Nov, Mood disorder F39 [place] [address] [place] [address] [id number] [place] [address] 91509- 8161 Nov, Diabetes type 2, controlled E11.9 ; Bronchitis J40 ; Edema, unspecified type R60.9 ; Weight gain R63.5 and Right knee pain, unspecified chronicity M25.561 [place] [id number] [place] [address] 15329- 7481 Oct, Mood disorder F39 [place] [address] 28845- 2789 Oct, Lupus erythematosus L93.0 and Bilateral edema of lower extremity R60.0 [place] [address] 30588- 7835 Oct, Mood disorder F39 and Anxiety F41.9 [place] [id number] [place] [address] 75659- 6999 September, Mood disorder F39 ; Anxiety F41.9 and Anger reaction R45.4 [place] [address] [id number] [place] [address] 46011- 1191 September, Diabetes type 2, controlled E11.9 ; Edema, unspecified type R60.9 and Fatigue, unspecified type R53.83 [place] [id number] [place] [address] 97687- 3241 Aug, Mood disorder F39 and Generalized anxiety disorder F41.1 [place] [address] [place] [id number] [place] [address] 52215- 9486 Aug, Diabetes type 2, controlled E11.9 ; Sinusitis J32.9 and Mood disorder F39 [place] [address] [place] [id number] [place] [address] 77038- 0965 15 Aug, 2015 Lupus erythematosus L93.0 [place] [address] [place] [id number] [place] [address] 30315- 5360 14 Aug, 2015 [place] [address] 52257- 8666 Aug, [facility] [address] [address]- 7580 Jul, Diabetes type 2, controlled E11.9 [facility] [id number] [place] [address] 35578- 3516 Jul, Mood disorder F39 and Depression F32.9 [facility] [address] [place] [id number] [place] [address] 10672- 1366 Jul, Lupus erythematosus L93.0 and Diabetes type 2, controlled E11.9 [facility] [address] [place] [address] 29537- 7072 Jul, Mood disorder F39 and Anxiety F41.9 [facility] [address] [id number] [place] [address] 70943- 0433 Jul, [facility] [address] [id number] [place] [address] 91724- 4366 Jul, [facility] [address] [id number] [place] [address] 27010- 6410 Jun, Mood disorder F39 and Anxiety F41.9 [facility] [id number] [place] [address] 57525- 2149 Jun, Mood disorder F39 [facility] [id number] [address]- 3652 Jun, [facility] [id number] [place] [address] 59259- 0283 Jun, [facility] [id number] [address]- 1609 Jun, Mood disorder F39 [facility] [id number] [place] [address] 91616- 1843 Jun, [facility] [id number] [address]- 5740 May, [facility] [id number] [address]- 0425 May, [facility] [address] [place] [id number] [place] [address] 16037- 2920 May, [facility] [address] [id number] [place] [address] 84918- 1510 May, [facility] [address] [id number] [place] [address] 45527- 1022 May, Anxiety F41.9 ; Dermatomyositis M33.90 and Diabetes type 2, controlled E11.[address] [facility] [id number] [place] [address] 68576 -9063 May, Sinusitis J32.9 and Cough R05 [facility] [address] [place] [id number] [place] [address] 45522- 5895 May, Mood disorder F39 [facility] [address] [id number] [place] [address] 67071- 6216 May, Adjustment disorder with mixed anxiety and depressed mood F43.23 [facility] [id number] [place] [address] 24849- 7262 Apr, [facility] [address] [place] [id number] [place] [address] 11031- 0266 Apr, [facility] [id number] [address]- 1828 Apr, Generalized anxiety disorder F41.1 and Mood disorder F39 [facility] [id number] [address]- 1688 Mar, [facility] [address] [id number] [place] [address] 82309- 8241 Mar, [facility] [address] [id number] [place] [address] 85132- 9365 Mar, [facility] [id number] [place] [address] 28383- 8449 Mar, Mood disorder F39 [place] [address] [place] [id number] [place] [address] 32560- 0334 Feb, [place] [address] 44784- 2188 Feb, Diabetes E11.9 and Bronchitis J40 [place] [address] 57[address]- 0215 Feb, [place] [address] 19536- 4796 Feb, [place] [address] 69563- 3222 Feb, Major depression, recurrent, full remission F33.42 and KELLY ( generalized anxiety disorder) F41.1 [place] [address] 12585- 1742 Feb, [place] [address] 29169- 5092 Feb, Single major depressive episode, in partial or unspecified remission F32.5 [place] [address] 55072- 7339 Jan, Fatigue 780.79 [place] [address] 03218- 7077 Jan, [place] [address] 29972- 7065 Jan, Diabetes with other specified manifestations, type II or unspecified type, not stated as uncontrolled 250.80 [place] [address] 32451- 1547 Jan, [place] [address] 13076- 3861 Dec, Hot flashes 627.2 ; Memory loss 780.93 and Joint pain 719.40 [place] [address] 24221- 1414 Dec, Major depression, recurrent 296.30 ; Generalized anxiety disorder 300.02 ; Adjustment disorder with depressed mood 309.0 and No condition on [place] II V71.09 [place] [address] [place] [id number] [place] [address] 97978- 0620 Dec, [facility] [address] [place] [id number] [place] [address] 61099- 7219 Nov, Cognitive and neurobehavioral dysfunction 294.9 ; Major depressive disorder, recurrent episode, moderate degree 296.32 and Anxiety state , unspecified 300.00 [place] [address] [place] [id number] [place] [address] 73369- 9959 Nov, [place] [id number] [place] [address] 69396- 4908 Nov, Bronchitis 490 and Diabetes with other specified manifestations, type II or unspecified type, not stated as uncontrolled 250.80 [place] [id number] [place] [address] 95556- 7234 Nov, Major depressive disorder, recurrent episode, moderate 296.32 and Anxiety disorder, unspecified 300.00 [place] [address] [place] [id number] [place] [address] 80752- 4759 Nov, Anxiety, generalized 300.02 ; Intermittent explosive disorder 312.34 ; No condition on [place] II V71.09 and No condition on axis III V71.09 [place] [id number] [place] [address] 84287- 5046 Oct, Diabetes with other specified manifestations, type II or unspecified type, not stated as uncontrolled 250.80 ; Urinary tract infection, site not specified 599.0 and Bronchitis [id number] [place] [address] 29959- 0337 Oct, Intermittent explosive disorder 312.34 ; Bipolar 1 disorder , depressed, moderate 296.52 ; Major depression, chronic 296.20 ; No condition on Fleetwood II V71.09 and No condition on axis III V71.09 [place] [id number] [place] [address] 44004078- 0501 Oct, Major depressive disorder, recurrent episode, moderate 296.32 ; Anxiety state 300.00 ; Cognitive decline 294.9 and No condition on Fleetwood II V71.09 [facility] [id number] [place] [address] 61918- 2177 Oct, [facility] [id number] [place] [address] 537241- 9743 Oct, Major depressive disorder, recurrent episode, moderate 296.32 ; Anxiety disorder, unspecified 300.00 and Persistent disorder of initiating or maintaining sleep 307.42 [facility] [id number] [place] [address] 138687- 9661 September, Diabetes with other specified manifestations, type II or unspecified type, not stated as uncontrolled 250.80 ; Memory loss 780.93 and Cognitive complaints 799.59 [place] [id number] [place] [address] 44921- 7791 September, No condition on Fleet[place] II V71.09 ; Major depression, recurrent 296.30 and Persistent mood [affective] disorder, unspecified 296.90 [facility] [id number] [place] [address] 33188- 8291 Aug, [facility] [id number] [address] 7264 Aug, [facility] [id number] [address] 2650 Aug, [facility] [id number] 3710 Jul, [facility] [id number] [address] Jul, [facility] [id number] [place] [address] 243585- 5867 Jul, [facility] [id number] 9832 Jul, [facility] [id number] [place] [address] 7307 Jul, [facility] [place] [facility] [address] [id number] [place] [address] 1967 Jun, 2014 [facility] [place] [facility] [address] [id number] [place] [address]- 8526 Jun, 2014 [facility] [place] [facility] [address] [id number] [place] [address]- 5886 Jun, 2014 [facility] [place] [facility] [address] [id number] [place] [address]- 2542 Jun, 2014 [facility] [place] [facility] [address] [id number] [place] [address]- 0446 Jun, 2014 [facility] [place] [facility] [address] [facility] [id number] [place] [address]- 1003 Jun, 2014 [facility] [place] [facility] [address] [facility] [id number] [place] [address]- 0865 Jun, 2014 [facility] [place] [facility] [address] [facility] [id number] [place] [address]- 0021 Jun, 2014 [facility] [place] [facility] [address] [facility] [id number] [place] [address]- 8289 Jun, 2014 [facility] [place] [facility] [id number] [place] [address]- 0548 Jun, 2014 [facility] [place] [facility] [address] [facility] [id number] [address]- 2548 Jun, 2014 [facility] [place] [facility] [address] [facility] [id number] [place] [address]- 7573 Jun, 2014 [facility] [place] [facility] [address] [facility] [id number] [place] [address]- 2221 Jun, 2014 [facility] [place] [facility] [address] [facility] [id number] [place] [address]- 8704 May, [facility] [place] [facility] [address] [facility] [id number] [place] [address]- 1856 May, [facility] [address] [id number] [place] [address]- 5878 Apr, [facility] [place] [facility] [address] [id number] [place] [address]- 8726 Apr, [facility] [place] [facility] [address] [id number] [place] [address]- 4857 Apr, [facility] [place] [facility] [address] [id number] [place] [address]- 1588 Apr, [facility] [place] [facility] [address] [id number] [place] [address]- 1488 Apr, [facility] [place] [facility] [address] [id number] [place] [address]- 1436 Apr, [facility] [place] [facility] [address] [id number] [place] [address]- 3698 Apr, [facility] [place] [facility] [address] [id number] [place] [address]- 6280 Apr, [facility] [place] [facility] [address] [id number] [place] [address]- 4557 Apr, [facility] [place] [facility] [address] [id number] [place] [address]- 7680 Apr, [facility] [place] [facility] [address] [id number] [place] [address]- 0051 Apr, [facility] [place] [facility] [address] [id number] [place] [address]- 7105 Apr, [facility] [place] [facility] [address] [id number] [place] [address]- 1780 Apr, [facility] [place] [facility] [address] [id number] [place] [address]- 7010 Apr, [facility] [place] [facility] [address] [id number] [place] [address]- 0953 Apr, [facility] [place] [facility] [address] [id number] [place] [address]- 6389 Apr, [facility] [place] [facility] [address] [id number] [place] [address]- 2302 Apr, [facility] [place] [facility] [address] [id number] [place] 6485 Apr, [facility] [place] [facility] [address] [id number] [place] [address]- 1445 Apr, [facility] [place] [facility] [address] [id number] [place] [address]- 8701 Apr, [facility] [place] [facility] [address] [id number] [place] [address]- 8096 Mar, [facility] [place] [facility] [address] [id number] [place] [address]- 7784 Mar, [facility] [place] [facility] [address] [id number] [place] [address]- 6636 Mar, [facility] [place] [facility] [address] [id number] [place] [address]- 4843 Mar, [facility] [place] [facility] [address] [id number] [place] [address]- 8104 Mar, [facility] [place] [facility] [address] [id number] [place] [address]- 2237 Mar, [facility] [place] [facility] [address] [id number] [place] [address]- 9970 Mar, [facility] [place] [facility] [address] [id number] [place] [address]- 5041 Mar, [facility] [place] [facility] [address] [id number] [place] [address]- 7889 Mar, [facility] [place] [facility] [address] [id number] [place] [address]- 5443 Mar, [facility] [place] [facility] [address] [id number] [place] [address]- 0725 Mar, [facility] [place] [facility] [address] [id number] [place] [address]- 1984 Mar, [facility] [place] [facility] [address] [id number] [place] [address]- 1856 Mar, [facility] [place] [facility] [address] [id number] [place] [address]- 5422 Feb, [facility] [place] [facility] [address] [id number] [place] [address]- 8162 Feb, [facility] [place] [facility] [address] [id number] [place] [address]- 2116 Feb, [facility] [place] [facility] [address] [id number] [place] [address]- 4571 Feb, [facility] [place] [facility] [address] [id number] [place] [address]- 0645 Feb, [facility] [place] [facility] [address] [id number] [address]- 3092 Feb, [facility] [place] [facility] [address] [id number] [place] [address]- 9224 Feb, [facility] [place] [facility] [address] [id number] [place] [address]- 0334 Feb, [facility] [place] [facility] [address] [id number] [address]- 9920 Feb, [facility] [place] [facility] [address] [id number] [address]- 4628 Feb, [facility] [place] [facility] [address] [id number] [place] [address]- 2828 Feb, [facility] [place] [facility] [address] [id number] [address]- 4254 Feb, [facility] [place] [facility] [address] [id number] 6364 10 Feb, 2014 [facility] [place] [facility] [address] [id number] [place] [address]- 5462 07 Feb, 2014 [facility] [place] [facility] [address] [id number] [place] [address]- 7129 07 Feb, 2014 [facility] [place] [facility] [address] [id number] [place] [address]- 3566 Jan, [facility] [place] [facility] [address] [id number] [place] [address]- 4626 08 Jan, 2013 [facility] [place] [facility] [address] [id number] [place] [address]- 0839 08 Jan, 2014 [facility] [place] [facility] [address] [id number] [place] [address]- 4232 Jan, [facility] [place] [facility] [address] [id number] [place] [address]- 2315 Jan, [facility] [place] [facility] [address] [id number] [place] [address]- 3977 Dec, [facility] [place] [facility] [address] [id number] [place] [address]- 1891 Dec, [facility] [place] [facility] [address] [id number] [place] [address]- 7157 Dec, [facility] [place] [facility] [address] [id number] [place] [address]- 4018 Dec, [facility] [place] [facility] [address] [id number] [place] [address]- 9740 Nov, [facility] [place] [facility] [address] [id number] [place] [address]- 2412 Nov, [facility] [place] [facility] [address] [id number] [place] [address]- 3690 Nov, [facility] [place] [facility] [address] [id number] [place] [address]- 1847 Nov, [facility] [place] [facility] [address] [id number] [place] [address]- 2449 Nov, [facility] [place] [facility] [address] [id number] [place] [address]- 0197 Nov, [facility] [place] [facility] [address] [id number] [place] [address]- 0400 Nov, [facility] [place] [facility] [address] [id number] [place] [address]- 8846 Nov, [facility] [place] [facility] [address] [id number] [place] [address]- 7374 Nov, [facility] [place] [facility] [address] [id number] [place] [address]- 2191 Nov, [facility] [place] [facility] [address] [id number] [place] [address]- 8403 Oct, [facility] [place] [facility] [address] [id number] [place] [address]- 7892 Oct, [facility] [place] [facility] [address] [id number] [place] [address]- 9669 September, [facility] [place] [facility] [address] [id number] [place] [address]- 5775 September, [facility] [place] [facility] [address] [id number] [place] [address]- 2347 September, [facility] [place] [facility] [address] [id number] [place] [address]- 0427 September, [facility] [place] [facility] [address] [id number] [place] [address]- 3264 Aug, [facility] [place] [facility] [address] [id number] [place] [address]- 0615 Aug, [facility] [place] [facility] [address] [id number] [place] [address]- 6802 Aug, [facility] [place] [facility] [address] [id number] [place] [address]- 6639 Jul, [facility] [place] [facility] [address] [id number] [address]- 9514 Jul, [facility] [place] [facility] [address] [id number] [place] [address]- 7948 Jul, [facility] [place] [facility] [address] [id number] [place] [address]- 1145 Jul, [facility] [place] [facility] [address] [id number] [place] [address]- 4056 May, [facility] [place] [facility] [address] [id number] [place] [address]- 2066 May, [facility] [place] [facility] [address] [id number] [place] [address]- 7583 May, [facility] [place] [facility] [address] [id number] [place] [address]- 3243 Mar, [facility] [place] [facility] [address] [id number] [place] [address]- 7812 Mar, [facility] [place] [facility] [address] [id number] [place] [address]- 4674 Mar, [facility] [place] [facility] [address] [id number] [place] [address]- 0365 Mar, [facility] [place] [facility] [address] [id number] [place] [address]- 3250 16 Feb, 2013 [facility] [place] [facility] [address] [id number] [address]- 5689 16 Feb, 2013 [facility] [place] [facility] [address] [id number] [address]- 9213 04 Feb, 2013 [facility] [place] [facility] [address] [id number] [place] [address]- 3870 16 Jan, 2013 [facility] [place] [facility] [address] [id number] [place] [address]- 3237 12 Jan, 2013 [facility] [place] [facility] [address] [id number] [place] [address]- 1799 09 Jan, 2013 [facility] [place] [facility] [address] [id number] [place] [address]- 7687 Dec, [facility] [address] [id number] [place] [address]- 1267 Dec, [facility] [address] [id number] [place] [address] 2546 Dec, [facility] [address] [id number] [place] [address]- 0778 Dec, [facility] [address] [id number] [place] [address]- 9043 Nov, [facility] [address] [id number] [place] [address]- 8802 Oct, [facility] [address] [id number] [place] [address]- 4957 Oct, [facility] [address] [id number] [place] [address]- 4336 September, [facility] [address] [id number] [place] [address]- 3413 September, [facility] [address] [id number] [place] [address]- 0945 September, [facility] [address] [id number] [place] [address]- 8269 Aug, [facility] [address] [id number] [place] [address]- 1104 Aug, [facility] [address] [id number] [place] [address]- 3729 Aug, [facility] [address] [id number] [place] [address]- 2815 Aug, [facility] [address] [id number] [place] [address]- 5306 Jul, [facility] [address] [id number] [place] [address]- 0280 Jul, [facility] [address] [id number] [place] [address]- 5226 21 Jul, 2012 [facility] [place] [facility] [address] [id number] [place] [address]- 1579 15 Jul, 2012 [facility] [address] [id number] [place] [address]- 8267 14 Jul, 2012 [facility] [place] [facility] [address] [id number] [place] [address]- 3169 13 Jul, 2012 [facility] [address] [id number] [place] [address]- 2340 Jul, [facility] [place] [facility] [address] [id number] [place] [address]- 2745 06 Jun, 2012 [facility] [place] [facility] [address] [id number] [place] [address]- 4166 06 Jun, 2012 [facility] [place] [facility] [address] [id number] [place] [address]- 6938 05 Jun, 2012 [facility] [place] [facility] [address] [id number] [place] [address]- 6476 Jun, [facility] [place] [facility] [address] [id number] [place] [address]- 6669 May, [facility] [place] [facility] [address] [id number] [place] [address]- 6225 May, [facility] [place] [facility] [address] [id number] [place] [address]- 8685 May, [facility] [place] [facility] [address] [id number] [place] [address]- 3619 May, [facility] [place] [facility] [address] [id number] [place] [address]- 5247 May, [facility] [place] [facility] [address] [id number] [place] [address]- 6297 Apr, [facility] [place] [facility] [address] [id number] [place] [address]- 0522 Apr, [facility] [place] [facility] [address] [id number] [place] [address]- 0593 Mar, [facility] [place] [facility] [address] [id number] [place] [address]- 1976 Mar, [facility] [place] [facility] [address] [id number] [place] [address]- 0148 Mar, [facility] [place] [facility] [address] [id number] [place] [address]- 1300 Mar, [facility] [place] [facility] [address] [id number] [place] [address]- 0079 Mar, [facility] [place] [facility] [address] [id number] [place] [address]- 9125 Mar, [facility] [place] [facility] [address] [id number] [place] [address]- 6549 Mar, [facility] [place] [facility] [address] [id number] [place] [address]- 0094 Mar, [facility] [place] [facility] [address] [id number] [place] [address]- 9002 Mar, [facility] [place] [facility] [address] [facility] [id number] [place] [address]- 9364 Mar, [facility] [place] [facility] [address] [id number] [place] [address]- 8629 Feb, [facility] [place] [facility] [address] [id number] [place] [address]- 1002 Feb, [facility] [place] [facility] [address] [id number] [place] [address]- 4700 Feb, [facility] [place] [facility] [address] [id number] [place] [address]- 8883 Feb, [facility] [place] [facility] [address] [id number] [place] [address]- 4790 Feb, [facility] [place] [facility] [address] [id number] [place] [address]- 1442 Feb, [facility] [place] [facility] [address] [id number] [place] [address]- 7452 Feb, [facility] [place] [facility] [address] [id number] [place] [address]- 0458 Jan, [facility] [place] [facility] [address] [id number] [place] [address]- 0081 Jan, [facility] [place] [facility] [address] [id number] [place] [address]- 5773 Dec, [facility] [place] [facility] [address] [id number] [place] [address]- 6423 Dec, [facility] [place] [facility] [address] [id number] [place] [address]- 6116 Dec, [facility] [place] [facility] [address] [id number] [place] [address]- 9139 Dec, [facility] [place] [facility] [address] [id number] [place] [address]- 7908 Dec, [facility] [place] [facility] [address] [id number] [place] [address] Dec, [facility] [place] [facility] [address] [id number] [place] [address] Nov, [facility] [place] [facility] [address] [id number] [place] [address] Nov, [facility] [place] [facility] [address] [id number] [place] [address] Nov, [facility] [place] [facility] [address] [id number] [place] [address] Nov, [facility] [place] [facility] [address] [id number] [place] [address] September, [facility] [place] [facility] [address] [id number] [address] September, [facility] [id number] [address] September, [facility] [id number] [address] Jul, [facility] [id number] [address] Jun, [facility] [address] [facility] [id number] [address] Jun, [facility] [id number] [address] Jun, [facility] [id number] [address] Apr, [facility] [id number] [address] Mar, [facility] [id number] [address] Mar, [facility] [id number] [address] Feb, [facility] [id number] [address] Feb, [facility] [id number] [address] Feb, [facility] [id number] [address] Jul, [facility] [id number] [address] Feb, IMMUNIZATIONS No Known Immunizations SOCIAL HISTORY Never Assessed REASON FOR VISIT [facility] f/u - PT reports her face continues to swell even after her ER visit 02/03/18. PT notes numbness on her left face up into her hairline. - Sharif Meehan MAtoza was denied through [employer] d/t pt having prescription insurance, PA was denied 01/23/18. Please advise about what med to change to. CBrumbackRN PLAN OF CARE VITAL SIGNS Height 62 in 2018-02-12 Weight 263.2 lbs 2018-02-12 Temperature 97.8 degrees Fahrenheit 2018-02-12 Heart Rate 102 bpm 2018-02-12 Respiratory Rate 20 2018-02-12 Oximetry 97 % 2018-02-12 BMI 48.13 kg/m2 2018-02-12 Blood pressure systolic 122 mmHg 2018-02-12 Blood pressure diastolic 66 mmHg 2018-02-12 MEDICATIONS Medication Instructions Dosage Frequency Start Date End Date Duration Status Dulera 200-5 MCG/ACT Inhalation Twice a day 1 puff 12h Dec, Active Cymbalta 60 mg Orally Twice a day 1 capsule 12h Aug, Active Furosemide 20 MG TAKE 1 TABLET BY MOUTH ONCE DAILY 30 Active Glucocard Expression Test - as directed 24h Nov, 50 Active Terbinafine HCl 1 % Externally Twice a day 1 application to affected area 12h Aug, Active Mupirocin 2 % Externally Three times a day 1 application to affected area 8h 5 day(s) Active Ciprofloxacin 0.3% as directed Active Proventil HFA 108 (90 Base) MCG/ACT INHALE TWO PUFFS BY MOUTH FOUR TIMES DAILY NEEDED 25 Active Promethazine HCl 25 MG Orally every 12 hrs 1 tablet as needed 12h 30 day(s) Active Acyclovir 400 mg Orally Five times a day 2 tablets Jan, 7 days Active Ingalls 7.5-325 MG Orally every 6 hrs 1 tablet as needed 6h Dec, 28 days Active Actos 30 MG TAKE ONE TABLET BY MOUTH ONCE DAILY 30 Active PredniSONE 20 mg 1 tablet 24h Active Potassium Chloride Marie ER 20 MEQ TAKE ONE TABLET BY MOUTH ONCE DAILY WITH FOOD 30 Active Benzonatate 100 MG TAKE ONE CAPSULE BY MOUTH THREE TIMES DAILY NEEDED 10 Active Neurontin 300 MG Orally Three times a day 1 capsule 8h Nov, 30 day(s) Active Diflucan 150 MG Orally Once a day 1 tablet 24h 20 Dec, 2017 3 days Active Omeprazole Active Folic Acid 1 MG TAKE ONE TABLET BY MOUTH ONCE DAILY (DO NOT TAKE ON DAYS YOU TAKE METHOTREXATE) 30 Active Methotrexate 2.5 MG Orally 1 time per week 6 Active Spironolactone 25 MG TAKE ONE TABLET BY MOUTH ONCE DAILY 30 Active Zanaflex 4 MG Orally Three times a day 1 tablet as needed 8h Dec, Active Lisinopril-Hydrochlorothiazide 20-25 MG TAKE ONE TABLET BY MOUTH ONCE DAILY 30 Active Magnesium Oxide 400 mg Orally Once a day 1 tablet as needed 24h 30 day(s) Active Walker 1 as directed Dec, Active Lasix Active Ondansetron 4 MG Orally every 4 hrs 1 tablet on the tongue and allow to dissolve as needed 4h Active Victoza 18 mg/3ml 1.8 mg injection 24h Active RESULTS No Results PROCEDURES No Known [...]
--- OUTSIDE RECORDS SUMMARY | 2018-05-09 23:21 | XMS REPORT ---
Author Author SUNNY WONG [facility] Address [address] [place] [address] Care Team Providers Care Racetrack Steward Name Role Phone SUNNY WONG Unavailable PROBLEMS Type Condition ICD9-CM Code SGQ93-IX Code Onset Dates Condition Status SNOMED Code Problem Controlled type 2 diabetes mellitus without complication, without long -term current use of insulin E11.9 Active 968023308 Problem Body mass index (BMI) of 45.0-49.9 in adult Z68.42 Active 784106512 Problem Tachycardia with heart rate 121-140 beats per minute R00.0 Active 2284448 Problem Facial droop R29.810 Active 02696418 Problem Menopause Z78.0 Active 527080125 Problem Gait disturbance R26.9 Active 57975653 Problem Dermatomyositis M33.90 Active 248955169 Problem Enlarged thyroid gland E04.9 Active 9408374 Problem Lumbago with sciatica, right side M54.41 Active 584105808 Problem Morbid (severe) obesity due to excess calories E66.01 Active 574697208 Problem Diabetes type 2, controlled E11.9 Active 17564420 Problem Osteoarthritis of right knee, unspecified osteoarthritis type M17.9 Active 810549884 Problem Allergic rhinitis due to pollen J30.1 Active 85078118 Problem Mood disorder F39 Active 18772830 Problem Arthritis M19.90 Active 5113490 Problem Plantar warts B07.0 Active 05315219 Problem Anxiety F41.9 Active 30478344 Problem Plantar wart of both feet B07.0 Active [id number] Problem Other chronic pain G89.29 Active 32984074 Problem Lumbago with sciatica, left side M54.42 Active [id number] ALLERGIES No Information ENCOUNTERS Encounter Location Date Diagnosis [facility] [place] [address] [facility] [id number] [address] Mar, [facility] [place] [id number] [place] [address] 44272- 5243 Feb, [facility] [place] [id number] [place] [address] 48989- 0076 Feb, [facility] [place] [id number] [place] [address] 05566- 7575 Feb, [facility] [place] [id number] [place] [address] 77915- 1847 28 Jan, 2018 Mood disorder F39 [facility] [place] [id number] [place] [address] 85473- 1061 27 Jan, 2018 BMI 45.0-49.9, adult Z68.42 and 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 [facility] [place] [id number] [place] [address] 67420- 0471 Jan, [facility] [place] [id number] [place] [address] 91019- 5137 Jan, [facility] [place] [id number] [place] [address] 86301- 7965 Jan, [facility] [place] [id number] [place] [address] 97106- 9660 Jan, 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 [facility] [place] [id number] [place] [address] 70870- 3187 Jan, [facility] [place] [id number] [place] [address] 73352- 9480 Jan, [facility] [place] [id number] [place] [address] 98049- 3895 Jan, [facility] [place] [id number] [place] [address] 31644- 0928 19 Jan, 2018 Allergic reaction to drug, initial encounter T78.40XA [facility] [place] [id number] [place] [address] 31130- 4347 17 Jan, 2018 BMI 45.0-49.9, adult Z68.42 and Facial droop R29.810 [place] [id number] [place] [address] 05603- 0782 14 Jan, 2018 Mood disorder F39 [place] [address] 61950- 3796 11 Jan, 2018 Dermatomyositis M33.90 and BMI 40.0-44.9, adult Z68.41 [place] [address] 47588- 1607 10 Jan, 2018 [place] [id number] [place] [address] 44995- 0188 05 Jan, 2018 [place] [address] 15602- 1998 04 Jan, 2018 Irritation of left eye H57.8 and BMI 40.0-44.9, adult Z68.41 [place] [address] 15527- 1411 31 Dec, 2017 Diabetes type 2, controlled E11.9 [place] [id number] [place] [address] 94116- 8331 30 Dec, 2017 Acute right ankle pain M25.571 [place] [id number] [place] [address] 75980- 5714 30 Dec, 2017 Other chronic pain G89.29 ; Diabetes type 2, controlled E11.9 ; Gait disturbance R26.9 ; Weakness R53.1 and Muscle spasm M62.838 [place] [id number] [place] [address] 05655- 1733 Dec, Acute non-recurrent maxillary sinusitis J01.00 [place] [id number] [place] [address] 95277- 8164 Dec, [place] [id number] [place] [address] 36617- 1864 Dec, [place] [id number] [place] [address] 03285- 3893 Dec, Acute non-recurrent maxillary sinusitis J01.00 [facility] [place] [id number] [place] [address] 17125- 4248 Dec, Lumbago with sciatica, right side M54.41 and Lupus erythematosus L93.0 [facility] [place] [id number] [place] [address] 60525- 9603 Dec, Mood disorder F39 [facility] [place] [id number] [place] [address] 65967- 4297 Dec, Mood disorder F39 [facility] [place] [id number] [place] [address] 83829- 9578 Dec, [facility] [place] [id number] [place] [address] 56680- 5103 Dec, Acute right ankle pain M25.571 [facility] [place] [id number] [place] [address] 28606- 9674 Nov, Lumbar radiculopathy M54.16 [facility] [place] [id number] [place] [address] 99663- 2114 Nov, [facility] [place] [id number] [place] [address] 19048- 9867 Nov, Mood disorder F39 [facility] [place] [id number] [place] [address] 71083- 8505 Nov, Lumbago with sciatica, right side M54.41 and Other chronic pain G89.29 [facility] [place] [id number] [place] [address] 61150- 2402 Nov, Acute right ankle pain M25.571 [facility] [place] [id number] [place] [address] 00924- 4466 Nov, [facility] [place] [id number] [place] [address] 04755- 7659 Oct, [facility] [place] [id number] [place] [address] 07673- 4335 Oct, Plantar wart of both feet B07.0 [place] [address] 26357- 7753 Oct, [place] [address] 23589- 4767 Oct, Acute right ankle pain M25.571 and Plantar wart of both feet B07.0 [place] [address] 63198- 7575 September, Other chronic pain G89.29 [place] [address] 64751- 3477 September, Other chronic pain G89.29 [place] [address] 00239- 4841 September, Other chronic pain G89.29 [place] [address] 97697- 7767 Aug, Mood disorder F39 [place] [address] 29412- 4066 Aug, Other chronic pain G89.29 ; Controlled type 2 diabetes mellitus without complication, without long-term current use of insulin E11.9 ; Low back pain M54.5 and Tinea corporis B35.4 [place] [id number] [place] [address] 78806- 0359 Aug, Mood disorder F39 and Anxiety F41.9 [place] [id number] [place] [address] 64397- 1779 Aug, Mood disorder F39 and Anxiety F41.9 [place] [address] 54248- 4062 Jul, [facility] [id number] [place] [address] 26550 -4568 Jul, Scabies B86 and BMI 45.0-49.9, adult Z68.42 [place] [id number] [place] [address] 99848- 1582 Jul, [place] [address] 84946- 5916 Jul, Mood disorder F39 and Anxiety F41.9 [place] [address] 44924- 0151 Jul, [facility] [id number] [place] [address] 44422 -3735 Jun, Bronchitis J40 ; Dark urine R82.99 and BMI 45.0-49.9, adult Z68.42 [place] [address] 02281- 8665 14 Jun, 2017 Acute pain of right shoulder M25.511 and Acute pain of right knee M25.561 [place] [address] 37264- 1161 May, BMI 40.0-44.9, adult Z68.41 ; Controlled type 2 diabetes mellitus without complication, without long-term current use of insulin E11.9 ; Muscle cramping R25.2 ; Hot flashes R23.2 ; Mood disorder F39 ; Anxiety F41.9 and Morbid (severe) obesity due to excess calories E66.01 [place] [id number] [place] [address] 46922- 0576 May, BMI 40.0-44.9, adult Z68.41 ; Controlled type 2 diabetes mellitus without complication, without long-term current use of insulin E11.9 ; Muscle cramping R25.2 and Hot flashes R23.[address] 14129- 2861 May, Tachycardia with heart rate 121-140 beats per minute R00.0 ; Morbid (severe) obesity due to excess calories E66.01 ; Diabetes type 2, controlled E11.9 and Enlarged thyroid gland E04.[id number] [place] [address] 12590- 4500 25 May, 2018 Encounter for well woman exam with routine [...] Dysuria R30.0 and Screening breast examination Z12.31 [place] [address] 41577- 2834 29 Apr, 2017 Mood disorder F39 ; Other chronic pain G89.29 and Anxiety F41.9 [place] [address] 78392- 1270 Apr, Lumbago with sciatica, left side M54.42 and Other chronic pain G89.29 [place] [address] 73100- 0837 Apr, Lupus erythematosus L93.0 [place] [address] 63158- 0546 Mar, Plantar wart of both feet B07.0 [place] [id number] [place] [address] 93103- 2211 Mar, Lupus erythematosus L93.0 and Sinus drainage J34.89 [place] [address] 72675- 3387 Mar, Mood disorder F39 ; Other chronic pain G89.29 and Anxiety F41.[address] 88726- 5853 Mar, Mood disorder F39 ; Arthritis M19.90 and Plantar warts B07.0 [place] [address] 29168- 2310 Feb, Lupus erythematosus L93.0 [facility] [place] [id number] [place] [address] 00520- 9517 Feb, Other chronic pain G89.29 [place] [id number] [place] [address] 04958- 1381 Feb, Mood disorder F39 and Anxiety F41.9 [place] [id number] [place] [address] 18322- 5101 Jan, [place] [id number] [place] [address] 24973- 5421 Jan, Mood disorder F39 [place] [address] 54863- 8056 Dec, Nail, ingrown L60.0 [place] [id number] [place] [address] 83707- 4348 Dec, Nail, ingrown L60.0 [place] [id number] [place] [address] 63426- 6209 Nov, Mood disorder F39 and Anxiety F41.9 [place] [id number] [place] [address] 40061- 3390 Nov, Sinus drainage J34.89 ; Hot flashes R23.2 ; Anxiety F41.9 and Diabetes type 2, controlled E11.9 [place] [id number] [place] [address] 13583- 8283 Nov, Nail, ingrown L60.0 [place] [id number] [place] [address] 61014- 0867 Oct, Anxiety F41.9 and Mood disorder F39 [place] [id number] [place] [address] 71442- 1612 Oct, Nail, ingrown L60.0 and Anxiety F41.9 [place] [id number] [place] [address] 65783- 8903 Oct, Lupus erythematosus L93.0 [facility] [place] [address] [address]- 4354 September, [facility] [place] [id number] [place] [address] 47010- 3000 September, [facility] [place] [id number] [place] [address] 48503- 0903 September, Lupus erythematosus L93.0 [facility] [place] [id number] [place] [address] 74491- 7334 Aug, [facility] [place] [id number] [place] [address] 03466- 0230 Aug, Mood disorder F39 and Anxiety F41.9 [facility] [place] [id number] [place] [address] 30497- 1580 Aug, Lupus erythematosus L93.0 ; Diabetes type 2, controlled E11.9 and Localized edema R60.0 [facility] [place] [id number] [place] [address] 42178- 2330 Aug, [facility] [place] [id number] [place] [address] 16917- 6791 Jul, Anxiety F41.9 and Mood disorder F39 [facility] [place] [id number] [place] [address] 87253- 4936 Jul, Diabetes type 2, controlled E11.9 [facility] [place] [id number] [place] [address] 60921- 8299 Jun, Anxiety F41.9 [facility] [place] [address] [address]- 8104 May, [facility] [place] [id number] [place] [address] 85373- 7825 May, [facility] [place] [address] [place] [address] 41821- 4172 May, Nausea R11.0 ; Other chronic pain G89.29 and Pain in right knee M25.561 [facility] [place] [address] [place] [address] 47378- 5898 May, [facility] [place] [id number] [place] [address] 29143- 2304 Apr, Tear of medial meniscus of right knee, current, unspecified tear type, subsequent encounter S83.241D and Tear of lateral meniscus of right knee, current, unspecified tear type, subsequent encounter S83.281D [place] [id number] [place] [address] 08116- 9945 Apr, Anxiety F41.9 and Mood disorder F39 [place] [id number] [place] [address] 12193- 5264 Apr, Anxiety F41.9 [place] [id number] [place] [address] 76951- 6757 Apr, [place] [id number] [place] [address] 09231- 8057 Mar, [place] [id number] [place] [address] 96264- 5313 Mar, Lupus erythematosus L93.0 and Diabetes type 2, controlled E11.9 [place] [id number] [place] [address] 08472- 8342 11 Mar, 2016 Mood disorder F39 [place] [id number] [place] [address] 21337- 0709 03 Mar, 2016 Tear of lateral meniscus of right knee, current, unspecified tear type, initial encounter S83.281A and Osteoarthritis of right knee, unspecified osteoarthritis type M17.9 [facility] [place] [id number] [place] [address] 82920- 8633 02 Mar, 2016 [place] [id number] [place] [address] 91952- 4370 Feb, Mood disorder F39 [facility] [place] [id number] [place] [address] 17901- 8013 Feb, Rash R21 [facility] [place] [address] [address]- 6206 Feb, [facility] [place] [id number] [place] [address] 93207- 0793 Jan, Other chronic pain G89.29 and Muscle spasm M62.838 [facility] [place] [id number] [place] [address] 14173- 9836 Jan, Mood disorder F39 [facility] [place] [id number] [place] [address] 82716- 4039 Jan, Pain in right knee M25.561 ; Other chronic pain G89.29 and Muscle spasm M62.838 [facility] [place] [id number] [place] [address] 24271- 1340 Dec, [facility] [place] [id number] [place] [address] 68171- 0139 Dec, [facility] [place] [id number] [place] [address] 12701- 6027 Nov, [facility] [place] [id number] [place] [address] 33081- 5846 Nov, Mood disorder F39 [facility] [place] [id number] [place] [address] 21185- 7230 Nov, Diabetes type 2, controlled E11.9 ; Bronchitis J40 ; Edema, unspecified type R60.9 ; Weight gain R63.5 and Right knee pain, unspecified chronicity M25.561 [facility] [place] [address] [place] [address] 86604- 1277 Oct, Mood disorder F39 [facility] [place] [id number] [place] [address] 48236- 3182 Oct, Lupus erythematosus L93.0 and Bilateral edema of lower extremity R60.0 [facility] [place] [id number] [place] [address] 23825- 6980 Oct, Mood disorder F39 and Anxiety F41.9 [facility] [place] [id number] [place] [address] 12467- 5436 September, Mood disorder F39 ; Anxiety F41.9 and Anger reaction R45.4 [place] [id number] [place] [address] 71210- 4693 September, Diabetes type 2, controlled E11.9 ; Edema, unspecified type R60.9 and Fatigue, unspecified type R53.83 [place] [id number] [place] [address] 73740- 5516 Aug, Mood disorder F39 and Generalized anxiety disorder F41.1 [place] [id number] [place] [address] 86099- 3619 Aug, Diabetes type 2, controlled E11.9 ; Sinusitis J32.9 and Mood disorder F39 [place] [id number] [place] [address] 98916- 7973 Aug, Lupus erythematosus L93.0 [place] [id number] [place] [address] 79017- 9621 Aug, [place] [id number] [place] [address] 14027- 2537 Aug, [place] [id number] [place] [address] [phone]- 4974 Jul, Diabetes type 2, controlled E11.9 [facility] [place] [id number] [place] [address] [phone]- [phone] Jul, Mood disorder F39 and Depression F32.9 [place] [address] [id number] [place] [address] 55453- [phone] Jul, Lupus erythematosus L93.0 and Diabetes type 2, controlled E11.9 [facility] [place] [id number] [place] [address] [phone]- [phone] Jul, Mood disorder F39 and Anxiety F41.9 [facility] [place] [id number] [address] Jul, [facility] [place] [id number] [place] [address] [phone]- [phone] Jul, [facility] [place] [id number] [place] [address] Jun, Mood disorder F39 and Anxiety F41.9 [facility] [place] [id number] [place] [address] [phone]- [phone] Jun, Mood disorder F39 [facility] [place] [id number] [place] [address] 18 Jun, 2015 [facility] [place] [id number] [place] [address] [phone]- [phone] 15 Jun, 2015 [facility] [place] [id number] [address] 08 Jun, 2015 Mood disorder F39 [facility] [place] [id number] [address] Jun, [facility] [place] [id number] [place] [address] 37632- [phone] May, [facility] [place] [id number] [address] May, [facility] [place] [address] [place] [address] 7093 May, [facility] [place] [id number], [place] [address] May, [facility] [place] [address], [place] [address] May, Anxiety F41.9 ; Dermatomyositis M33.90 and Diabetes type 2, controlled E11.9 [facility] [address], [place] [address] May, Sinusitis J32.9 and Cough R05 [facility] [place] [id number] [place] [address] 83380- 0383 May, Mood disorder F39 [facility] [place] [id number] [place] [address] 55421- 2642 May, Adjustment disorder with mixed anxiety and depressed mood F43.23 [facility] [place] [id number] [place] [address] 20165- 2518 Apr, [facility] [place] [id number] [place] [address] 48749- 2496 Apr, [facility] [place] [id number] [place] [address] 99096- 9483 Apr, Generalized anxiety disorder F41.1 and Mood disorder F39 [facility] [place] [id number] [place] [address] 30707- 9365 Mar, [facility] [place] [address] [address]- 9592 Mar, [facility] [place] [id number] [place] [address] 33608- 3420 Mar, [facility] [place] [id number] [place] [address] 25287- 3024 Mar, Mood disorder F39 [facility] [place] [id number] [place] [address] 09485- 9033 Feb, [facility] [place] [id number] [place] [address] 86159- 1340 Feb, Diabetes E11.9 and Bronchitis J40 [facility] [place] [id number] [place] [address] 90674- 6997 Feb, [facility] [place] [id number] [place] [address] 96011- 4064 Feb, [facility] [place] [id number] [place] [address] 87555- 6534 Feb, Major depression, recurrent, full remission F33.42 and KELLY ( generalized anxiety disorder) F41.1 [place] [id number] [place] [address] 24152- 0853 Feb, [place] [address] [address]- 6814 Feb, Single major depressive episode, in partial or unspecified remission F32.[address] [address]- 2082 Jan, Fatigue 780.[address] 32726- 8725 Jan, [address] 48[address]- 3718 Jan, Diabetes with other specified manifestations, type II or unspecified type, not stated as uncontrolled 250.[address] 18906- 5237 Jan, [place] [id number] [place] [address] 96100- 4988 Dec, Hot flashes 627.2 ; Memory loss 780.93 and Joint pain 719.40 [place] [id number] [place] [address] 73537- 2751 Dec, Major depression, recurrent 296.30 ; Generalized anxiety disorder 300.02 ; Adjustment disorder with depressed mood 309.0 and No condition on Bokeelia II V71.09 [place] [id number] [place] [address] 08942- 3385 Dec, [place] [id number] [place] [address] 38695- 8385 Nov, Cognitive and neurobehavioral dysfunction 294.9 ; Major depressive disorder, recurrent episode, moderate degree 296.32 and Anxiety state , unspecified 300.00 [place] [id number] [place] [address] 05664- 8764 Nov, [place] [id number] [place] [address] 27735- 2430 Nov, Bronchitis 490 and Diabetes with other specified manifestations, type II or unspecified type, not stated as uncontrolled 250.80 [place] [id number] [place] [address] 37158- 9465 Nov, Major depressive disorder, recurrent episode, moderate 296.32 and Anxiety disorder, unspecified 300.00 [place] [id number] [place] [address] 88772- 5194 Nov, Anxiety, generalized 300.02 ; Intermittent explosive disorder 312.34 ; No condition on Bokeelia II V71.09 and No condition on axis III V71.09 [place] [id number] [place] [address] 57291- 8949 Oct, Diabetes with other specified manifestations, type II or unspecified type, not stated as uncontrolled 250.80 ; Urinary tract infection, site not specified 599.0 and Bronchitis [id number] [place] [address] 78331- 7515 Oct, Intermittent explosive disorder 312.34 ; Bipolar 1 disorder , depressed, moderate 296.52 ; Major depression, chronic 296.20 ; No condition on Bokeelia II V71.09 and No condition on axis III V71.09 [id number] [place] [address] 69279- 5184 Oct, Major depressive disorder, recurrent episode, moderate 296.32 ; Anxiety state 300.00 ; Cognitive decline 294.9 and No condition on Bokeelia II V71.09 [place] [address], [place] [address]- 0466 Oct, [place] [id number] [place] [address] 44825- 5254 Oct, Major depressive disorder, recurrent episode, moderate 296.32 ; Anxiety disorder, unspecified 300.00 and Persistent disorder of initiating or maintaining sleep 307.42 [id number] [place] [address] 07875- 7493 September, Diabetes with other specified manifestations, type II or unspecified type, not stated as uncontrolled 250.80 ; Memory loss 780.93 and Cognitive complaints 799.59 [facility] [place] [id number] [place] [address] 23774- 4174 September, No condition on Bokeelia II V71.09 ; Major depression, recurrent 296.30 and Persistent mood [affective] disorder, unspecified 296.90 [facility] [place] [id number] [place] [address] 33243- 3416 Aug, [facility] [place] [id number] [place] [address] 10908- 8686 Aug, [facility] [place] [id number] [place] [address] 12852- 4476 Aug, [facility] [place] [id number] [place] [address] 65543- 3986 Jul, [facility] [place] [id number] [place] [address] 39919- 8596 Jul, [facility] [place] [address], [place] [address]- 5914 Jul, [facility] [place] [id number] 8[address] Jul, [facility] [place] [address], [place] [address]- 0666 Jul, [facility] [place] [address], [place] [address]- 1846 Jun, [facility] [place] [address], [place] [address]- 1116 Jun, [facility] [place] [address], [place] [address]- 3226 Jun, [facility] [place] [address], [place] [address]- 5056 Jun, [facility] [place] [id number] [place] [address] 35602- 3836 Jun, 2014 [facility] [place] [facility] [address] [facility] [id number] [place] [address]- 1637 Jun, 2014 [facility] [place] [facility] [address] [facility] [id number] [place] [address]- 5064 Jun, 2014 [facility] [place] [facility] [address] [facility] [id number] [place] [address]- 2916 Jun, 2014 [facility] [place] [facility] [address] [facility] [id number] [place] [address]- 6980 Jun, 2014 [facility] [place] [facility] [address] [facility] [id number] [place] [address]- 0225 Jun, 2014 [facility] [place] [facility] [address] [facility] [id number] [place] [address]- 1460 Jun, 2014 [facility] [place] [facility] [id number] [place] [address]- 9608 Jun, 2014 [facility] [place] [facility] [address] [facility] [id number] [place] [address]- 6584 Jun, 2014 [facility] [place] [facility] [address] [id number] [place] [address]- 6118 May, [facility] [place] [facility] [address] [facility] [id number] [place] [address]- 5256 May, [facility] [place] [facility] [address] [facility] [id number] [place] [address]- 4993 Apr, [facility] [place] [facility] [address] [facility] [id number] [place] [address]- 0170 Apr, [facility] [place] [facility] [address] [facility] [id number] [place] [address]- 8770 Apr, [facility] [place] [facility] [address] [facility] [id number] [place] [address]- 1197 Apr, [facility] [place] [facility] [address] [id number] [place] [address]- 9721 Apr, [facility] [place] [facility] [address] [id number] [place] [address]- 1243 Apr, [facility] [place] [facility] [address] [id number] [place] [address]- 4446 Apr, [facility] [place] [facility] [address] [id number] [place] 8936 Apr, [facility] [place] [facility] [address] [id number] [place] [address]- 6176 Apr, [facility] [place] [facility] [address] [id number] [place] [address]- 0306 15 Apr, 2014 [facility] [place] [facility] [address] [id number] [place] [address]- 8106 Apr, [facility] [place] [facility] [address] [id number] [place] [address]- 6174 Apr, [facility] [place] [facility] [address] [id number] [place] [address]- 7956 Apr, [facility] [place] [facility] [address] [id number] [place] [address]- 5469 Apr, [facility] [place] [facility] [address] [id number] [place] [address]- 8285 Apr, [facility] [place] [facility] [address] [id number] [place] [address]- 3346 Apr, [facility] [place] [facility] [address] [id number] [place] [address]- 4377 Apr, [facility] [place] [facility] [address] [id number] [place] 8026 Apr, [facility] [place] [facility] [address] [id number] [place] [address]- 3366 Apr, [facility] [place] [facility] [address] [id number] [place] [address]- 2056 Apr, [facility] [place] [facility] [address] [id number] [place] [address]- 0099 Mar, [facility] [place] [facility] [address] [id number] [place] [address]- 0265 Mar, [facility] [place] [facility] [address] [id number] [place] [address]- 2291 Mar, [facility] [place] [facility] [address] [facility] [id number] [place] [address]- 8853 Mar, [facility] [place] [facility] [address] [id number], [place] [address]- 0846 Mar, [facility] [place] [facility] [address] [id number] [place] [address]- 7707 Mar, [facility] [place] [facility] [address] [id number] [place] [address]- 8748 Mar, [facility] [place] [facility] [address] [id number] [place] [address]- 3620 Mar, [facility] [place] [facility] [address] [id number], [place] [address]- 6861 Mar, [facility] [place] [facility] [address] [id number], [place] [address]- 1575 Mar, [facility] [place] [facility] [address] [id number], [place] [address]- 6681 Mar, [facility] [place] [facility] [address] [id number], [place] [address]- 1979 Mar, [facility] [place] [facility] [address] [id number], [place] [address]- 2905 Mar, [facility] [place] [facility] [address] [id number], [place] [address]- 9508 Feb, [facility] [place] [facility] [address] [id number], [place] [address]- 0572 Feb, [facility] [place] [facility] [address] [id number], [place] [address]- 7125 Feb, [facility] [place] [facility] [address] [id number] [place] [address]- 1833 Feb, 2013 [facility] [place] [facility] [address] [id number] [place] [address]- 9247 Feb, [facility] [place] [facility] [address] [id number] [place] [address]- 2251 Feb, [facility] [place] [facility] [address] [id number] [place] [address]- 9927 Feb, [facility] [place] [facility] [address] [id number] [place] [address]- 5136 Feb, [facility] [place] [facility] [address] [id number] [place] [address]- 0871 Feb, [facility] [place] [facility] [address] [id number] [place] [address]- 2514 Feb, [facility] [place] [facility] [address] [id number] [place] [address]- 9902 Feb, [facility] [place] [facility] [address] [id number] [place] [address]- 0969 10 Feb, 2014 [facility] [place] [facility] [address] [id number] [place] [address]- 6357 10 Feb, 2014 [facility] [place] [facility] [address] [id number] [place] [address]- 1460 07 Feb, 2014 [facility] [place] [facility] [address] [id number] [place] [address]- 5467 07 Feb, 2013 [facility] [place] [facility] [address] [id number] [place] [address]- 0506 10 Jan, 2013 [facility] [place] [facility] [address] [id number] [place] [address]- 0387 08 Sep, 2013 [facility] [place] [facility] [address] [id number] [place] [address]- 0234 08 Sep, 2013 [facility] [place] [facility] [address] [id number] [place] [address]- 0287 Jan, [facility] [place] [facility] [address] [id number] [place] [address]- 0771 Jan, [facility] [place] [facility] [address] [id number] [place] [address]- 1368 Dec, [facility] [place] [facility] [address] [id number] [place] [address]- 8498 Dec, [facility] [place] [facility] [address] [id number] [place] [address]- 4915 Dec, [facility] [place] [facility] [address] [id number] [place] [address]- 7881 Dec, [facility] [place] [facility] [address] [id number] [place] [address]- 8037 Nov, [facility] [place] [facility] [address] [id number] [place] [address]- 9704 Nov, [facility] [place] [facility] [address] [id number] [place] [address]- 3844 Nov, [facility] [place] [facility] [address] [id number] [place] [address]- 2682 Nov, [facility] [place] [facility] [address] [id number] [place] [address]- 4626 Nov, [facility] [place] [facility] [address] [id number] [place] [address]- 9764 Nov, [facility] [place] [facility] [address] [id number] [place] [address]- 9019 Nov, [facility] [place] [facility] [address] [id number] [place] [address]- 2736 Nov, [facility] [place] [facility] [address] [id number] [place] [address]- 5559 Nov, [facility] [place] [facility] [address] [id number] [place] [address]- 4713 Nov, [facility] [place] [facility] [address] [id number] [place] [address]- 5583 Oct, [facility] [place] [facility] [address] [id number] [place] [address]- 5025 Oct, [facility] [place] [facility] [address] [id number] [place] [address]- 1972 September, [facility] [place] [facility] [address] [id number] [place] [address]- 7452 September, [facility] [place] [facility] [address] [id number] [place] [address]- 3210 September, [facility] [place] [facility] [address] [id number] [place] [address]- 6883 September, [facility] [place] [facility] [address] [id number] [place] [address]- 0621 Aug, [facility] [place] [facility] [address] [id number] [place] [address]- 8457 Aug, [facility] [place] [facility] [address] [id number] [place] [address]- 3656 Aug, [facility] [place] [facility] [address] [id number] [place] [address]- 5559 Jul, [facility] [place] [facility] [address] [id number] [place] [address]- 9268 24 Jul, 2013 [facility] [place] [facility] [address] [id number] [place] [address]- 2107 Jul, [facility] [place] [facility] [address] [id number] [place] [address]- 0206 Jul, [facility] [place] [facility] [address] [id number] [place] [address]- 7418 May, [facility] [place] [facility] [address] [id number] [place] [address]- 9952 May, [facility] [place] [facility] [address] [id number] [place] [address]- 5789 May, [facility] [place] [facility] [address] [id number] [place] [address]- 2217 15 Mar, 2013 [facility] [address] [id number] [place] [address]- 8342 15 Mar, 2013 [facility] [place] [facility] [address] [id number] [place] [address]- 9151 Mar, [facility] [address] [id number] [place] [address]- 4719 Mar, [facility] [place] [facility] [address] [id number] [place] [address]- 9973 16 Feb, 2013 [facility] [place] [facility] [address] [id number] [place] [address]- 8321 Feb, [facility] [place] [facility] [address] [id number] [place] [address]- 1002 Feb, [facility] [place] [facility] [address] [id number] [place] [address]- 2861 16 Jan, 2013 [facility] [address] [id number] [place] [address]- 9901 Jan, [facility] [place] [facility] [address] [id number] [place] [address]- 8747 Jan, [facility] [place] [facility] [address] [id number] [place] [address]- 1286 Dec, [facility] [place] [facility] [address] [id number] [place] [address]- 6407 Dec, [facility] [place] [facility] [address] [id number] [place] [address]- 8772 Dec, [facility] [place] [facility] [address] [id number] [place] [address]- 7649 Dec, [facility] [place] [facility] [address] [id number] [place] [address]- 4191 Nov, [facility] [place] [facility] [address] [id number] [place] [address]- 8189 Oct, [facility] [address] [id number] [place] [address]- 3233 Oct, [facility] [place] [facility] [address] [id number] [place] [address]- 0715 September, [facility] [address] [id number] [place] [address]- 0643 September, [facility] [place] [facility] [address] [id number] [place] [address]- 5941 September, [facility] [address] [id number] [place] [address]- 3659 Aug, [facility] [place] [facility] [address] [id number] [place] [address]- 5168 Aug, [facility] [address] [id number] [place] [address]- 5000 Aug, [facility] [address] [id number] [place] [address]- 2483 Aug, [facility] [address] [id number] [place] [address]- 7737 26 Jul, 2012 [facility] [place] [facility] [address] [id number] [place] [address]- 8438 Jul, [facility] [place] [facility] [address] [id number] [place] [address]- 3160 21 Jul, 2012 [facility] [place] [facility] [address] [id number] [place] [address] 15 Jul, 2012 [facility] [place] [facility] [address] [id number] [place] [address] 14 Jul, 2012 [facility] [place] [facility] [address] [id number] [place] [address] 13 Jul, 2012 [facility] [place] [facility] [address] [id number] [place] [address] 13 Jul, 2012 [facility] [place] [facility] [address] [id number] [place] [address] 06 Jun, 2012 [facility] [address] [id number] [place] [address] Jun, [facility] [place] [facility] [address] [id number] [place] [address] Jun, [facility] [place] [facility] [address] [id number] [place] [address]26 Jun, [facility] [place] [facility] [address] [id number] [place] [address] May, [facility] [place] [facility] [address] [id number] [place] [address] May, [facility] [place] [facility] [address] [id number] [place] [address] May, [facility] [address] [id number] [place] [address] May, [facility] [address] [id number] [place] [address] May, [facility] [place] [facility] [address] [id number] [place] [address]- [address] Apr, [facility] [address] [id number] [place] [address] Apr, [facility] [place] [facility] [address] [id number] [place] [address] Mar, [facility] [place] [facility] [address] [id number] [place] [address] Mar, [facility] [place] [facility] [address] [id number] [place] [address] Mar, [facility] [place] [facility] [address] [id number] [place] [address]99 Mar, [facility] [place] [facility] [address] [id number] [place] [address] Mar, [facility] [place] [facility] [address] [id number] [place] [address]- [address] Mar, [facility] [place] [facility] [address] [id number] [place] [address] Mar, [facility] [place] [facility] [address] [id number] [place] [address] Mar, [facility] [place] [facility] [address] [id number] [place] [address]- [address]291 Mar, [facility] [place] [facility] [address] [id number] [place] [address] Mar, [facility] [place] [facility] [address] [id number] [place] [address] Feb, [facility] [place] [facility] [address] [id number] [place] [address] Feb, [facility] [place] [facility] [address] [id number] [place] [address] 79[address] Feb, [facility] [place] [facility] [address] [id number] [place] [address] 8869 Feb, [facility] [place] [facility] [address] [id number] [place] [address] Feb, [facility] [place] [facility] [address] [id number] [place] [address] 89[address] Feb, [facility] [place] [facility] [address] [id number] [address] Feb, [facility] [place] [facility] [address] [id number] [place] [address] Jan, [facility] [place] [facility] [address] [id number] [place] [address] Jan, [facility] [place] [facility] [address] [id number] [place] [address] Dec, [facility] [place] [facility] [address] [id number] [place] [address]97 Dec, [facility] [place] [facility] [address] [id number] [place] [address]- 9470 Dec, [facility] [place] [facility] [address] [id number] [place] [address] Dec, [facility] [place] [facility] [address] [id number] [place] [address] Dec, [facility] [place] [facility] [address] [id number] [place] [address] Dec, [facility] [place] [facility] [address] [id number] [place] [address] Nov, [facility] [place] [facility] [address] [id number] [place] [address]- [address] Nov, [facility] [place] [facility] [address] [id number] [place] [address]- [address]26 Nov, [facility] [place] [facility] [address] [id number] [place] [address]- [address] Nov, [facility] [place] [facility] [address] [id number] [place] [address]- [address] September, [facility] [place] [facility] [address] [id number] [place] [address]- [address] September, [facility] [place] [facility] [address] [id number] [place] [address]- [address] September, [facility] [place] [facility] [address] [id number] [place] [address]- [address]36 Jul, [facility] [place] [facility] [address] [id number] [place] [address] 9337 Jun, [facility] [place] [facility] [address] [id number] [place] [address]- 6[address] Jun, [facility] [place] [facility] [address] [id number] [place] [address] Jun, [facility] [place] [facility] [address] [id number] [address] Apr, [facility], [place] [id number], [place] [address] Mar, [facility], [place] [id number] [place] [address] Mar, [facility], [place] [id number] [address] Feb, [facility], [place] [id number] [address] Feb, [facility], [place] [id number] [address] Feb, [facility], [place] [id number] [address] Jul, [facility], [place] [id number], [place] [address] Feb, IMMUNIZATIONS No Known Immunizations SOCIAL HISTORY Never Assessed REASON FOR VISIT f/u PLAN OF CARE Activity Details Follow Up 2 Weeks Reason: F/U VITAL SIGNS MEDICATIONS Unknown Medications RESULTS No Results PROCEDURES Procedure Date Ordered Result Body Site Psychotherapy, patient &/family, 45 minutes, established patient Feb 09, 2018 INSTRUCTIONS MEDICATIONS ADMINISTERED No Known Medications MEDICAL (GENERAL) HISTORY Type Description Date Medical History type II diabetes-dx'd 12/2010 Medical History dysfunctional uterine bleeding--endometrial bx 12/2010 Medical History asthma Medical History hypertension Medical History obesity Medical History anxiety Medical History autoimmune disease Surgical History x1 Hospitalization History child Hospitalization History Asthma
--- OUTSIDE RECORDS SUMMARY | 2018-05-09 23:22 | XMS REPORT ---
Author Author MACY TAMAYO [facility] Address [address] [place] [address] Care Team Providers Care Dynamicist Name Role Phone MACY TAMAYO Unavailable PROBLEMS Type Condition ICD9-CM Code UDB01-QL Code Onset Dates Condition Status SNOMED Code Problem Controlled type 2 diabetes mellitus without complication, without long -term current use of insulin E11.9 Active 179925061 Problem Body mass index (BMI) of 45.0-49.9 in adult Z68.42 Active 393184288 Problem Tachycardia with heart rate 121-140 beats per minute R00.0 Active 5434636 Problem Facial droop R29.810 Active 11827059 Problem Menopause Z78.0 Active 655491499 Problem Gait disturbance R26.9 Active 34318577 Problem Dermatomyositis M33.90 Active 983053462 Problem Enlarged thyroid gland E04.9 Active 2696647 Problem Lumbago with sciatica, right side M54.41 Active 559408753 Problem Morbid (severe) obesity due to excess calories E66.01 Active 905627209 Problem Diabetes type 2, controlled E11.9 Active 50246599 Problem Osteoarthritis of right knee, unspecified osteoarthritis type M17.9 Active 787693162 Problem Allergic rhinitis due to pollen J30.1 Active 72628813 Problem Mood disorder F39 Active 25497309 Problem Arthritis M19.90 Active 5158337 Problem Plantar warts B07.0 Active 52245618 Problem Anxiety F41.9 Active 40772474 Problem Plantar wart of both feet B07.0 Active [id number] Problem Other chronic pain G89.29 Active 90186831 Problem Lumbago with sciatica, left side M54.42 Active [id number] ALLERGIES No Information ENCOUNTERS Encounter Location Date Diagnosis [facility] [address] [facility] [id number] [address] Mar, [facility] [address] [facility] [id number] [place] [address] 81396- 0761 Feb, [facility] [address] [address]74- 8535 Feb, [facility] [address] 58146- 7540 Feb, [facility] [address] 08455- 1857 28 Jan, 2018 Mood disorder F39 [facility] [address] 79671- 9362 27 Jan, 2018 BMI 45.0-49.9, adult Z68.42 and 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 [facility] [id number] [place] [address] 61038- 3557 Jan, [facility] [address] 21111- 8297 Jan, [facility] [address] 97653- 2361 Jan, [facility] [address] 50140- 7462 Jan, 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 [facility] [id number] [place] [address] 41709- 3128 Jan, [facility] [id number] [place] [address] 74155- 0614 Jan, [facility] [id number] [place] [address] 69220- 7792 Jan, [facility] [address] 92311- 4683 19 Jan, 2018 Allergic reaction to drug, initial encounter T78.40XA [facility] [id number] [place] [address] 76626- 5370 17 Jan, 2018 BMI 45.0-49.9, adult Z68.42 and Facial droop R29.810 [facility] [id number] [place] [address] 30014- 0174 14 Jan, 2018 Mood disorder F39 [facility] [address] 64597- 0801 11 Jan, 2018 Dermatomyositis M33.90 and BMI 40.0-44.9, adult Z68.41 [facility] [address] 74881- 2647 10 Jan, 2018 [facility] [address] 00145- 3337 05 Jan, 2018 [facility] [address] 22273- 7677 04 Jan, 2018 Irritation of left eye H57.8 and BMI 40.0-44.9, adult Z68.41 [facility] [address] 98604- 7500 31 Dec, 2017 Diabetes type 2, controlled E11.9 [facility] [address] 99276- 9481 Dec, Acute right ankle pain M25.571 [facility] [address] 76165- 7043 Dec, Other chronic pain G89.29 ; Diabetes type 2, controlled E11.9 ; Gait disturbance R26.9 ; Weakness R53.1 and Muscle spasm M62.838 [facility] [id number] [place] [address] 03610- 6347 Dec, Acute non-recurrent maxillary sinusitis J01.00 [facility] [address] 49677- 3444 Dec, [facility] [address] 71946- 6088 Dec, [facility] [address] 43481- 0749 Dec, Acute non-recurrent maxillary sinusitis J01.00 [facility] [id number] [place] [address] 37908- 3785 Dec, Lumbago with sciatica, right side M54.41 and Lupus erythematosus L93.0 [facility] [id number] [place] [address] 47372- 4602 Dec, Mood disorder F39 [facility] [address] 46314- 0726 Dec, Mood disorder F39 [facility] [id number] [place] [address] 01226- 2894 Dec, [facility] [id number] [place] [address] 51763- 8045 Dec, Acute right ankle pain M25.571 [facility] [id number] [place] [address] 83904- 4905 Nov, Lumbar radiculopathy M54.16 [facility] [id number] [place] [address] 11361- 1991 Nov, [facility] [id number] [place] [address] 32407- 6181 Nov, Mood disorder F39 [facility] [id number] [place] [address] 91143- 2587 Nov, Lumbago with sciatica, right side M54.41 and Other chronic pain G89.29 [facility] [id number] [place] [address] 69745- 7213 Nov, Acute right ankle pain M25.571 [facility] [id number] [place] [address] 75401- 4832 Nov, [facility] [id number] [place] [address] 08573- 2670 Oct, [facility] [id number] [place] [address] 73796- 2819 Oct, Plantar wart of both feet B07.0 [facility] [id number] [place] [address] 08540- 6700 Oct, [facility] [id number] [place] [address] 71168- 1499 Oct, Acute right ankle pain M25.571 and Plantar wart of both feet B07.0 [facility] [id number] [place] [address] 29185- 3953 September, Other chronic pain G89.29 [facility] [id number] [place] [address] 08748- 0292 September, Other chronic pain G89.29 [facility] [id number] [place] [address] 62111- 8651 September, Other chronic pain G89.29 [facility] [id number] [place] [address] 85094- 7752 Aug, Mood disorder F39 [facility] [id number] [place] [address] 79044- 9000 Aug, Other chronic pain G89.29 ; Controlled type 2 diabetes mellitus without complication, without long-term current use of insulin E11.9 ; Low back pain M54.5 and Tinea corporis B35.4 [facility] [id number] [place] [address] 46844- 8278 Aug, Mood disorder F39 and Anxiety F41.9 [facility] [id number] [place] [address] 07687- 7143 Aug, Mood disorder F39 and Anxiety F41.9 [facility] [id number] [place] [address] 14574- 8345 Jul, [facility] [id number] [place] [address] 13554 -8386 Jul, Scabies B86 and BMI 45.0-49.9, adult Z68.42 [facility] [id number] [place] [address] 41964- 1700 Jul, [facility] [id number] [place] [address] 65572- 8373 Jul, Mood disorder F39 and Anxiety F41.9 [facility] [id number] [place] [address] 82731- 5250 Jul, [facility] [address] 80311 -6663 27 Jun, 2017 Bronchitis J40 ; Dark urine R82.99 and BMI 45.0-49.9, adult Z68.42 [facility] [id number] [place] [address] 73552- 2025 14 Jun, 2017 Acute pain of right shoulder M25.511 and Acute pain of right knee M25.561 [facility] [id number] [place] [address] 46054- 4785 May, BMI 40.0-44.9, adult Z68.41 ; Controlled type 2 diabetes mellitus without complication, without long-term current use of insulin E11.9 ; Muscle cramping R25.2 ; Hot flashes R23.2 ; Mood disorder F39 ; Anxiety F41.9 and Morbid (severe) obesity due to excess calories E66.01 [facility] [id number] [place] [address] 50328- 0944 May, BMI 40.0-44.9, adult Z68.41 ; Controlled type 2 diabetes mellitus without complication, without long-term current use of insulin E11.9 ; Muscle cramping R25.2 and Hot flashes R23.2 [facility] [id number] [place] [address] 91924- 5045 May, Tachycardia with heart rate 121-140 beats per minute R00.0 ; Morbid (severe) obesity due to excess calories E66.01 ; Diabetes type 2, controlled E11.9 and Enlarged thyroid gland E04.9 [facility] [address] [place] [address]- 7982 25 May, 2018 Encounter for well woman [...] Dysuria R30.0 and Screening breast examination Z12.31 [facility] [address] 53608- 5264 29 Apr, 2017 Mood disorder F39 ; Other chronic pain G89.29 and Anxiety F41.9 [facility] [address] 26676- 5242 Apr, Lumbago with sciatica, left side M54.42 and Other chronic pain G89.29 [facility] [address] 18202- 9255 Apr, Lupus erythematosus L93.0 [facility] [address] 15081- 1727 Mar, Plantar wart of both feet B07.0 [facility] [address] 53088- 5797 Mar, Lupus erythematosus L93.0 and Sinus drainage J34.89 [facility] [id number] [place] [address] 64891- 5241 Mar, Mood disorder F39 ; Other chronic pain G89.29 and Anxiety F41.9 [facility] [address] 59717- 9440 Mar, Mood disorder F39 ; Arthritis M19.90 and Plantar warts B07.0 [place] [address] 03250- 3512 Feb, Lupus erythematosus L93.0 [facility] [id number] [place] [address] 29833- 4800 Feb, Other chronic pain G89.29 [facility] [id number] [place] [address] 55477- 4417 Feb, Mood disorder F39 and Anxiety F41.9 [facility] [id number] [place] [address] 67398- 3457 Jan, [facility] [id number] [place] [address] 57609- 8599 Jan, Mood disorder F39 [facility] [address] 90793- 2654 Dec, Nail, ingrown L60.0 [facility] [id number] [place] [address] 58296- 8303 Dec, Nail, ingrown L60.0 [facility] [id number] [place] [address] 81302- 9264 Nov, Mood disorder F39 and Anxiety F41.9 [facility] [id number] [place] [address] 33035- 3639 Nov, Sinus drainage J34.89 ; Hot flashes R23.2 ; Anxiety F41.9 and Diabetes type 2, controlled E11.9 [facility] [id number] [place] [address] 82148- 1162 Nov, Nail, ingrown L60.0 [facility] [id number] [place] [address] 14347- 7881 Oct, Anxiety F41.9 and Mood disorder F39 [facility] [id number] [place] [address] 65802- 6522 Oct, Nail, ingrown L60.0 and Anxiety F41.9 [facility] [id number] [place] [address] 14323- 7118 Oct, Lupus erythematosus L93.0 [facility] [address] [address]- 0472 September, [facility] [id number] [place] [address] 42596- 0983 September, [facility] [id number] [place] [address] 43505- 2145 September, Lupus erythematosus L93.0 [facility] [id number] [place] [address] 24104- 8854 Aug, [facility] [id number] [place] [address] 55213- 4868 Aug, Mood disorder F39 and Anxiety F41.9 [facility] [id number] [place] [address] 41834- 2332 Aug, Lupus erythematosus L93.0 ; Diabetes type 2, controlled E11.9 and Localized edema R60.0 [facility] [id number] [place] [address] 84799- 9125 Aug, [facility] [id number] [place] [address] 13774- 9007 Jul, Anxiety F41.9 and Mood disorder F39 [facility] [id number] [place] [address] 61054- 4270 Jul, Diabetes type 2, controlled E11.9 [facility] [id number] [place] [address] 68301- 8942 Jun, Anxiety F41.9 [facility] [address] [address]- 3958 May, [facility] [id number] [place] [address] 98488- 8137 May, [facility] [id number] [place] [address] 19960- 8429 May, Nausea R11.0 ; Other chronic pain G89.29 and Pain in right knee M25.561 [facility] [id number] [place] [address] 45947- 9044 May, [facility] [id number] [place] [address] 31492- 9532 Apr, Tear of medial meniscus of right knee, current, unspecified tear type, subsequent encounter S83.241D and Tear of lateral meniscus of right knee, current, unspecified tear type, subsequent encounter S83.281D [facility] [id number] [place] [address] 02830- 5456 Apr, Anxiety F41.9 and Mood disorder F39 [facility] [id number] [place] [address] 159841- 2749 Apr, Anxiety F41.9 [facility] [id number] [place] [address] 56652- 1262 Apr, [facility] [id number] [place] [address] 11936- 5683 Mar, [facility] [id number] [place] [address] 76695- 5736 Mar, Lupus erythematosus L93.0 and Diabetes type 2, controlled E11.9 [facility] [id number] [place] [address] 39533- 7414 Mar, Mood disorder F39 [facility] [id number] [place] [address] 41765- 7786 Mar, Tear of lateral meniscus of right knee, current, unspecified tear type, initial encounter S83.281A and Osteoarthritis of right knee, unspecified osteoarthritis type M17.9 [facility] [id number] [place] [address] 73816- 0521 02 Mar, 2016 [facility] [id number] [place] [address] 03290- 4231 Feb, Mood disorder F39 [facility] [id number] [place] [address] 06104- 8352 Feb, Rash R21 [facility] [id number] [place] [address] 73233- 4672 Feb, [facility] [id number] [place] [address] 93811- 3816 Jan, Other chronic pain G89.29 and Muscle spasm M62.838 [facility] [id number] [place] [address] 22545- 7707 Jan, Mood disorder F39 [facility] [id number] [place] [address] 75267- 2629 Jan, Pain in right knee M25.561 ; Other chronic pain G89.29 and Muscle spasm M62.838 [facility] [id number] [place] [address] 82647- 9979 Dec, [facility] [id number] [place] [address] 76903- 8267 Dec, [facility] [id number] [place] [address] 86279- 1864 Nov, [facility] [id number] [place] [address] 77539- 7006 Nov, Mood disorder F39 [facility] [id number] [place] [address] 29042- 8967 Nov, Diabetes type 2, controlled E11.9 ; Bronchitis J40 ; Edema, unspecified type R60.9 ; Weight gain R63.5 and Right knee pain, unspecified chronicity M25.561 [facility] [id number] [place] [address] 44948- 8890 Oct, Mood disorder F39 [facility] [id number] [place] [address] 21690- 2903 Oct, Lupus erythematosus L93.0 and Bilateral edema of lower extremity R60.0 [facility] [id number] [place] [address] 83556- 4881 Oct, Mood disorder F39 and Anxiety F41.9 [facility] [id number] [place] [address] 85767- 3766 September, Mood disorder F39 ; Anxiety F41.9 and Anger reaction R45.4 [facility] [id number] [place] [address] 57071- 3812 September, Diabetes type 2, controlled E11.9 ; Edema, unspecified type R60.9 and Fatigue, unspecified type R53.83 [facility] [id number] [place] [address] 53242- 0917 Aug, Mood disorder F39 and Generalized anxiety disorder F41.1 [facility] [id number] [place] [address] 52731- 9305 Aug, Diabetes type 2, controlled E11.9 ; Sinusitis J32.9 and Mood disorder F39 [facility] [id number] [place] [address] 87904- 1504 Aug, Lupus erythematosus L93.0 [facility] [id number] [place] [address] 39607- 8864 Aug, [facility] [id number] [place] [address] 76630- 0160 Aug, [facility] [id number] [place] [address] 13448- 7374 Jul, Diabetes type 2, controlled E11.9 [facility] [id number] [place] [address] 95041- 6490 Jul, Mood disorder F39 and Depression F32.9 [facility] [id number] [place] [address] 77401- 1418 Jul, Lupus erythematosus L93.0 and Diabetes type 2, controlled E11.9 [facility] [id number] [place] [address] 77714- 8181 07 Jul, 2015 Mood disorder F39 and Anxiety F41.9 [facility] [address] [place] [address]- 5109 07 Jul, 2015 [facility] [address], [place] [address]- 5123 Jul, [facility] [id number], [place] [address]- 6799 Jun, Mood disorder F39 and Anxiety F41.9 [facility] [id number] [place] [address] 50667- 8790 Jun, Mood disorder F39 [facility] [id number] [place] [address]- 2956 18 Jun, 2015 [facility] [id number] [place] [address] 70512- 1131 Jun, [facility] [id number], [place] [address]- 1448 Jun, Mood disorder F39 [facility] [id number], [place] [address]- 3167 Jun, [facility] [id number] [place] [address] 97226- 3300 May, [facility] [id number], [place] [address]- 4764 May, [facility] [id number] [place] [address]- 4302 May, [facility] [id number] [address]- 5261 May, [facility] [id number] [address]- 4976 May, Anxiety F41.9 ; Dermatomyositis M33.90 and Diabetes type 2, controlled E11.9 [facility] [id number], [place] [address] -4581 May, Sinusitis J32.9 and Cough R05 [facility] [id number], [place] [address]- 1256 May, Mood disorder F39 [facility] [id number] [place] [address] 63645- 5365 May, Adjustment disorder with mixed anxiety and depressed mood F43.23 [facility] [id number] [place] [address] 18408- 4816 Apr, [facility] [id number] [place] [address] 98293- 1016 Apr, [facility] [id number] [place] [address] 92653- 5843 Apr, Generalized anxiety disorder F41.1 and Mood disorder F39 [facility] [id number] [place] [address] 26631- 1687 Mar, [facility] [id number] [place] [address] [phone]- 0097 Mar, [facility] [id number] [place] [address] 86942- 3305 Mar, [facility] [id number] [place] [address] 63101- 7382 Mar, Mood disorder F39 [facility] [id number] [place] [address] 93496- 4933 Feb, [facility] [id number] [place] [address] 74892- 1840 Feb, Diabetes E11.9 and Bronchitis J40 [facility] [id number] [place] [address] 23955- 0921 Feb, [facility] [id number] [place] [address] [id number]- 5044 Feb, [facility] [id number] [place] [address] 65603- 0169 Feb, Major depression, recurrent, full remission F33.42 and KELLY ( generalized anxiety disorder) F41.1 [id number] [place] [address] 52014- 3245 Feb, [place] [facility] [id number] [place] [address] 60281- 8230 Feb, Single major depressive episode, in partial or unspecified remission F32.5 [place] [id number] [place] [address] 86871- 3809 Jan, Fatigue 780.79 [place] [address] 49297- 8724 Jan, [address] 33131- 5681 Jan, Diabetes with other specified manifestations, type II or unspecified type, not stated as uncontrolled 250.[id number] [place] [address] 35230- 6075 Jan, [place] [facility] [id number] [place] [address] 35092- 3566 Dec, Hot flashes 627.2 ; Memory loss 780.93 and Joint pain 719.40 [id number] [place] [address] 66978- 4033 Dec, Major depression, recurrent 296.30 ; Generalized anxiety disorder 300.02 ; Adjustment disorder with depressed mood 309.0 and No condition on [place] II V71.09 [place] [id number] [place] [address] 71563- 2161 Dec, [id number] [place] [address] 27889- 6643 Nov, Cognitive and neurobehavioral dysfunction 294.9 ; Major depressive disorder, recurrent episode, moderate degree 296.32 and Anxiety state , unspecified 300.[id number] [place] [address] 98969- 9965 Nov, [place] [id number] [place] [address] 13452- 0762 Nov, Bronchitis 490 and Diabetes with other specified manifestations, type II or unspecified type, not stated as uncontrolled 250.80 [place] [id number] [place] [address] 13992- 0407 Nov, Major depressive disorder, recurrent episode, moderate 296.32 and Anxiety disorder, unspecified 300.00 [place] [id number] [place] [address] 45820- 0111 Nov, Anxiety, generalized 300.02 ; Intermittent explosive disorder 312.34 ; No condition on [place] II V71.09 and No condition on axis III V71.09 [place] [id number] [place] [address] 41439- 8275 Oct, Diabetes with other specified manifestations, type II or unspecified type, not stated as uncontrolled 250.80 ; Urinary tract infection, site not specified 599.0 and Bronchitis [address] [place] [id number] [place] [address] 86487- 3000 Oct, Intermittent explosive disorder 312.34 ; Bipolar 1 disorder , depressed, moderate 296.52 ; Major depression, chronic 296.20 ; No condition on [place] II V71.09 and No condition on axis III V71.09 [place] [address] [place] [id number] [place] [address] 73335- 5633 Oct, Major depressive disorder, recurrent episode, moderate 296.32 ; Anxiety state 300.00 ; Cognitive decline 294.9 and No condition on [place] II V71.09 [place] [id number] [place] [address] 85403- 2896 Oct, [place] [id number] [place] [address] 30038- 8908 Oct, Major depressive disorder, recurrent episode, moderate 296.32 ; Anxiety disorder, unspecified 300.00 and Persistent disorder of initiating or maintaining sleep 307.42 [place] [id number] [place] [address] 53062- 8406 September, Diabetes with other specified manifestations, type II or unspecified type, not stated as uncontrolled 250.80 ; Memory loss 780.93 and Cognitive complaints 799.59 [facility] [address] [address] [address] September, No condition on [place] II V71.09 ; Major depression, recurrent 296.30 and Persistent mood [affective] disorder, unspecified 296.90 [facility] [address] [address]- 0873 Aug, [facility] [address] 0478 Aug, [facility] [address] 2360 Aug, [facility] [address] 4106 Jul, [facility] [address] [address]- 2662 Jul, [facility] [address] [address]- 9661 Jul, [facility] [address] 2577 Jul, [facility] [address] 6279 Jul, [facility] [address] [address]- 7413 Jun, [facility] [address] [address]- 3045 Jun, [facility] [address] 1530 Jun, [facility] [address] 2620 Jun, [facility] [address] [address]- 5910 Jun, [facility] [place] [facility] [address] [id number] [place] [address]- 7288 Jun, 2014 [facility] [place] [facility] [address] [id number] [place] [address]- 1006 Jun, 2014 [facility] [place] [facility] [address] [id number] [place] [address]- 4296 Jun, 2014 [facility] [place] [facility] [address] [id number] [place] [address]- 4462 Jun, 2014 [facility] [place] [facility] [address] [id number] [place] [address]- 5773 Jun, 2014 [facility] [place] [facility] [address] [id number] [place] [address]- 1573 Jun, 2014 [facility] [place] [facility] [address] [facility] [id number] [place] [address]- 1703 Jun, 2014 [facility] [place] [facility] [address] [facility] [id number] [place] [address]- 1791 Jun, 2014 [facility] [place] [facility] [address] [facility] [id number] [place] [address]- 3420 May, [facility] [place] [facility] [address] [facility] [id number] [place] [address]- 8465 May, [facility] [place] [facility] [address] [facility] [id number] [place] [address]- 7837 Apr, [facility] [place] [facility] [address] [id number] [place] [address]- 4061 Apr, [facility] [place] [facility] [address] [id number] [place] [address]- 0701 Apr, [facility] [place] [facility] [address] [facility] [id number] [place] [address]- 8073 Apr, [facility] [place] [facility] [address] [facility] [id number] [place] [address]- 9571 Apr, [facility] [place] [facility] [address] [id number] [place] [address]- 7910 Apr, [facility] [address] [id number] [place] [address]- 2323 Apr, [facility] [place] [facility] [address] [id number] [place] [address]- 9466 Apr, [facility] [address] [id number] [place] [address]- 2286 Apr, [facility] [place] [facility] [address] [id number] [place] [address]- 2833 15 Apr, 2014 [facility] [address] [id number] [place] [address]- 7601 Apr, [facility] [address] [id number] [place] [address]- 0314 Apr, [facility] [place] [facility] [address] [id number] [place] [address]- 4846 Apr, [facility] [address] [id number] [place] [address]- 7524 Apr, [facility] [place] [facility] [address] [id number] [place] [address]- 6855 Apr, [facility] [address] [id number] [place] [address]- 3373 Apr, [facility] [place] [facility] [address] [id number] [place] [address]- 7295 Apr, [facility] [place] [facility] [address] [id number] [place] [address]- 5248 Apr, [facility] [place] [facility] [address] [id number] [place] [address]- 9982 Apr, [facility] [place] [facility] [address] [id number] [place] [address]- 6927 Apr, [facility] [place] [facility] [address] [id number] [place] [address]- 7264 Mar, [facility] [place] [facility] [address] [id number] [place] [address]- 6973 Mar, [facility] [place] [facility] [address] [id number] [place] [address]- 8401 Mar, [facility] [place] [facility] [address] [id number] [place] [address]- 4361 Mar, [facility] [place] [facility] [address] [id number] [place] [address]- 7805 Mar, [facility] [place] [facility] [address] [id number] [place] [address]- 9986 Mar, [facility] [place] [facility] [address] [id number] [place] [address]- 6898 Mar, [facility] [place] [facility] [address] [id number] [place] [address]- 0375 Mar, [facility] [place] [facility] [address] [id number] [address]- 7640 Mar, [facility] [place] [facility] [address] [id number] [place] [address]- 9118 Mar, [facility] [place] [facility] [address] [facility] [id number], [place] [address]- 7716 Mar, [facility] [place] [facility] [address] [facility] [id number], [place] [address]- 0656 Mar, [facility] [place] [facility] [address] [id number], [place] [address]- 8239 Mar, [facility] [place] [facility] [address] [id number] [place] [address]- 5251 Feb, [facility] [place] [facility] [address] [id number] [place] [address]- 8958 Feb, [facility] [place] [facility] [address] [id number], [place] [address]- 6231 Feb, [facility] [place] [facility] [address] [id number], [place] [address]- 5430 Feb, [facility] [place] [facility] [address] [id number] [place] [address]- 9290 Feb, [facility] [place] [facility] [address] [id number] [place] [address]- 8320 Feb, [facility] [place] [facility] [address] [id number] [place] [address]- 8520 Feb, [facility] [place] [facility] [address] [id number] [place] [address]- 9500 Feb, [facility] [place] [facility] [address] [id number] [place] [address]- 4585 Feb, [facility] [place] [facility] [address] [id number] [place] [address]- 5799 Feb, [facility] [place] [facility] [address] [id number] [place] [address]- 1411 Feb, [facility] [place] [facility] [address] [id number] [place] [address]- 4811 10 Feb, 2014 [facility] [place] [facility] [address] [id number] [place] [address]- 5452 10 Feb, 2014 [facility] [place] [facility] [address] [id number] [place] [address]- 4481 07 Feb, 2014 [facility] [place] [facility] [address] [id number], [place] [address]- 7849 07 Feb, 2013 [facility] [place] [facility] [address] [id number], [place] [address]- 0933 10 Jan, 2013 [facility] [place] [facility] [address] [id number] [place] [address]- 1677 08 Sep, 2013 [facility] [place] [facility] [address] [id number] [place] [address]- 8355 08 Sep, 2013 [facility] [place] [facility] [address] [facility] [id number] [place] [address]- 6521 08 Sep, 2013 [facility] [place] [facility] [address] [id number] [place] [address]- 6949 Jan, [facility] [place] [facility] [address] [id number] [place] [address]- 2860 Dec, [facility] [place] [facility] [address] [id number] [place] [address]- 7097 Dec, [facility] [place] [facility] [address] [id number] [place] [address]- 5718 Dec, [facility] [place] [facility] [address] [id number] [place] [address]- 2628 Dec, [facility] [place] [facility] [address] [id number] [place] [address]- 7780 Nov, [facility] [place] [facility] [address] [id number] [place] [address]- 4754 Nov, [facility] [place] [facility] [address] [id number] [place] [address]- 2022 Nov, [facility] [place] [facility] [address] [id number] [place] [address]- 2234 Nov, [facility] [place] [facility] [address] [id number] [place] [address]- 9324 Nov, [facility] [place] [facility] [address] [id number] [place] [address]- 8117 Nov, [facility] [place] [facility] [address] [id number] [place] [address]- 6059 Nov, [facility] [place] [facility] [address] [id number] [place] [address]- 8945 Nov, [facility] [place] [facility] [address] [id number] [place] [address]- 3640 Nov, [facility] [place] [facility] [address] [id number] [place] [address]- 9706 Nov, [facility] [place] [facility] [address] [id number] [place] [address]- 6404 Oct, [facility] [place] [facility] [address] [id number] [place] [address]- 5277 Oct, [facility] [place] [facility] [address] [id number] [place] [address]- 4875 September, [facility] [place] [facility] [address] [id number] [place] [address]- 5808 September, [facility] [place] [facility] [address] [id number] [place] [address]- 9190 September, [facility] [place] [facility] [address] [id number] [place] [address]- 6880 September, [facility] [place] [facility] [address] [id number] [place] [address]- 8523 Aug, [facility] [place] [facility] [address] [id number] [place] [address]- 2826 Aug, [facility] [place] [facility] [address] [id number] [place] [address]- 1614 Aug, [facility] [place] [facility] [address] [id number] [place] [address]- 4776 24 Jul, 2013 [facility] [place] [facility] [address] [id number] [place] [address]- 3314 24 Jul, 2013 [facility] [place] [facility] [address] [id number] [place] [address]- 4049 Jul, [facility] [place] [facility] [address] [id number] [place] [address]- 0511 Jul, [facility] [place] [facility] [address] [id number] [place] [address]- 2020 May, [facility] [place] [facility] [address] [id number] [place] [address]- 8034 May, [facility] [place] [facility] [address] [id number] [place] [address]- 5766 May, [facility] [place] [facility] [address] [id number] [place] [address]- 0714 15 Mar, 2013 [facility] [address] [id number] [place] [address]- 7760 15 Mar, 2013 [facility] [place] [facility] [address] [id number] [place] [address]- 4167 13 Mar, 2013 [facility] [place] [facility] [address] [id number] [place] [address]- 3069 Mar, [facility] [place] [facility] [address] [id number] [place] [address]- 9125 16 Feb, 2013 [facility] [place] [facility] [address] [id number] [place]22 16 Feb, 2013 [facility] [place] [facility] [address] [id number] [place] [address]- 9014 Feb, [facility] [place] [facility] [address] [id number] [place] [address]- 4325 16 Jan, 2013 [facility] [place] [facility] [address] [id number] [place] [address]- 8279 12 Jan, 2013 [facility] [place] [facility] [address] [id number] [place] [address]- 0994 Jan, [facility] [place] [facility] [address] [id number] [place] [address]- 9948 Dec, [facility] [place] [facility] [address] [id number] [place] [address]- 4145 Dec, [facility] [place] [facility] [address] [id number] [place] [address]- 4191 Dec, [facility] [place] [facility] [address] [id number] [place] [address]- 7131 Dec, [facility] [place] [facility] [address] [id number] [place] [address]- 2110 Nov, [facility] [place] [facility] [address] [id number] [place] 5124 Oct, [facility] [place] [facility] [address] [id number] [place] [address]- 9942 Oct, [facility] [address] [id number] [place] [address]- 8609 September[facility] [address] [id number] [place] [address]- 8683 September, [facility] [address] [id number] [place] [address]- 7775 September, [facility] [address] [id number] [place] [address]- 8957 Aug, [facility] [address] [id number] [place] [address]- 9913 Aug, [facility] [address] [id number] [place] [address]- 3069 Aug, [facility] [address] [id number] [place] [address]- 2237 Aug, [facility] [address] [id number] [place] [address]- 3500 26 Jul, 2012 [facility] [address] [id number] [place] [address]- 8081 25 Jul, 2012 [facility] [address] [id number] [place] [address]- 3168 21 Jul, 2012 [facility] [address] [id number] [place] [address]- 2584 15 Jul, 2012 [facility] [address] [id number] [place] [address]- 9301 14 Jul, 2012 [facility] [place] [facility] [address] [id number] [place] [address]- 3352 13 Jul, 2012 [facility] [place] [facility] [address] [id number] [place] [address]- 7295 13 Jul, 2012 [facility] [place] [facility] [address] [id number] [place] [address]- 4518 Jun, [facility] [address] [id number] [place] [address]- 4188 Jun, [facility] [address] [id number] [place] [address]- 4955 Jun, [facility] [address] [facility] [id number] [place] [address]- 1148 Jun, [facility] [address] [id number] [place] [address]- 6405 May, [facility] [address] [id number] [place] [address]- 8165 May, [facility] [address] [id number] [place] [address]- 8324 May, [facility] [address] [facility] [id number] [place] [address]- 5712 May, [facility] [address] [facility] [id number] [place] [address]- 5999 May, [facility] [address] [facility] [id number] [place] [address]- 3331 Apr, [facility] [address] [facility] [id number] [place] [address]- 6549 Apr, [facility] [address] [facility] [id number], [place] [address]- 7479 Mar, [facility] [place] [facility] [address] [id number] [place] [address]- 7337 Mar, [facility] [place] [facility] [address] [id number] [place] [address]- 8051 Mar, [facility] [place] [facility] [address] [facility] [id number] [place] [address]- 3351 Mar, [facility] [place] [facility] [address] [facility] [id number] [place] [address]- 7765 Mar, [facility] [place] [facility] [address] [id number] [place] [address]- 4378 Mar, [facility] [place] [facility] [address] [id number] [place] [address]- 2622 Mar, [facility] [place] [facility] [address] [id number] [place] [address]- 2546 Mar, [facility] [place] [facility] [address] [id number] [place] [address]- 6129 Mar, [facility] [place] [facility] [address] [id number] [place] [address]- 9939 Mar, [facility] [place] [facility] [address] [id number] [place] [address]- 8778 Feb, [facility] [place] [facility] [address] [id number] [place] 3052 Feb, [facility] [place] [facility] [address] [id number] [place] [address]- 1751 Feb, [facility] [place] [facility] [address] [id number] [place] [address]- 0438 Feb, [facility] [place] [facility] [address] [id number] [place] [address]- 3882 Feb, [facility] [place] [facility] [address] [id number] [place] [address]- 0737 Feb, [facility] [place] [facility] [address] [id number] [place] [address]- 7614 Feb, [facility] [place] [facility] [address] [id number] [place] [address]- 7604 Jan, [facility] [place] [facility] [address] [id number] [place] [address]- 3821 Jan, [facility] [place] [facility] [address] [id number] [place] [address]- 1606 Dec, [facility] [place] [facility] [address] [id number] [place] [address]- 7228 Dec, [facility] [place] [facility] [address] [id number] [place] [address]- 4844 Dec, [facility] [place] [facility] [address] [id number] [place] [address]- 8571 Dec, [facility] [place] [facility] [address] [id number] [place] [address]- 8234 Dec, [facility] [place] [facility] [address] [id number] [place] [address]- 6493 Dec, [facility] [place] [facility] [address] [id number] [place] [address]- 3742 Nov, [facility] [place] [facility] [address] [id number] [place] [address]- 6768 Nov, [facility] [place] [facility] [address] [id number] [place] [address]- 0600 Nov, [facility] [place] [facility] [address] [id number] [place] [address] Nov, [facility] [place] [facility] [address] [id number] [place] [address] September, [facility] [place] [facility] [address] [id number] [place] [address] September, [facility] [place] [facility] [address] [id number] [place] [address] September, [facility] [place] [facility] [address] [id number] [place] [address] Jul, [facility] [place] [facility] [address] [id number] [place] [address] Jun, [facility] [place] [facility] [address] [id number] [place] [address] Jun, [facility] [place] [facility] [address] [id number] [place] [address] Jun, [facility] [place] [facility] [id number] [id number] 14 Apr, 2011 [facility] [id number] [place] [address] 28 Mar, 2011 [facility] [id number] [place] [address] 15 Mar, 2011 [facility] [id number] [place] [address] Feb, [facility] [id number] [place] [address] Feb, [facility] [id number] [place] [address] 11 Feb, 2011 [facility] [id number] [place] [address] Jul, [facility] [id number] [place] [address] 20 Feb, 2008 IMMUNIZATIONS No Known Immunizations [...]
--- OUTSIDE RECORDS SUMMARY | 2018-05-09 23:23 | XMS REPORT ---
Author Author MACY TAMAYO [facility] Address [address] [place] [address] Care Team Providers Care Director Global Name Role Phone MACY TAMAYO Unavailable PROBLEMS Type Condition ICD9-CM Code ACA49-VF Code Onset Dates Condition Status SNOMED Code Problem Controlled type 2 diabetes mellitus without complication, without long -term current use of insulin E11.9 Active 902240909 Problem Body mass index (BMI) of 45.0-49.9 in adult Z68.42 Active 727412500 Problem Tachycardia with heart rate 121-140 beats per minute R00.0 Active 5972220 Problem Facial droop R29.810 Active 09044678 Problem Menopause Z78.0 Active 326724349 Problem Gait disturbance R26.9 Active 81966408 Problem Dermatomyositis M33.90 Active 196366142 Problem Enlarged thyroid gland E04.9 Active 1532541 Problem Lumbago with sciatica, right side M54.41 Active 448617786 Problem Morbid (severe) obesity due to excess calories E66.01 Active 209170594 Problem Diabetes type 2, controlled E11.9 Active 86793097 Problem Osteoarthritis of right knee, unspecified osteoarthritis type M17.9 Active 946303298 Problem Allergic rhinitis due to pollen J30.1 Active 94714753 Problem Mood disorder F39 Active 07485945 Problem Arthritis M19.90 Active 4422678 Problem Plantar warts B07.0 Active 27399764 Problem Anxiety F41.9 Active 30322228 Problem Plantar wart of both feet B07.0 Active [id number] Problem Other chronic pain G89.29 Active 81911507 Problem Lumbago with sciatica, left side M54.42 Active [id number] ALLERGIES No Information ENCOUNTERS Encounter Location Date Diagnosis [facility] [address] [id number] [address] Mar, [facility] [id number] [place] [address] 10941- 3181 Feb, [facility] [address] [address]- 6752 Feb, [facility] [address] [address]42- 5209 Feb, [facility] [address] 39119- 0773 28 Jan, [address] 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 [id number] [place] [address] 76030- 1116 Jan, [facility] [address] 52361- 3040 Jan, [facility] [address] 94720- 3930 Jan, 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 [id number] [place] [address] 45749- 1464 Jan, [facility] [id number] [place] [address] 94224- [address] Jan, [facility] [id number] [place] [address] 18653- 0998 Jan, [facility] [address] 15453- 6890 19 Jan, 2018 Allergic reaction to drug, initial encounter T78.40XA [facility] [id number] [place] [address] 41949- 5565 17 Jan, 2018 BMI 45.0-49.9, adult Z68.42 and Facial droop R29.810 [facility] [id number] [place] [address] 93931- 8793 14 Jan, 2018 Mood disorder F39 [facility] [address] 18994- 8936 11 Jan, 2018 Dermatomyositis M33.90 and BMI 40.0-44.9, adult Z68.41 [facility] [address] 33114- 8875 10 Jan, 2018 [facility] [address] 14895- 3247 05 Jan, 2018 [facility] [address] 31135- 7531 04 Jan, 2018 Irritation of left eye H57.8 and BMI 40.0-44.9, adult Z68.41 [facility] [address] 94179- 6808 31 Dec, 2017 Diabetes type 2, controlled E11.9 [facility] [address] 29244- 3026 Dec, Acute right ankle pain M25.571 [facility] [address] 06155- 2513 Dec, Other chronic pain G89.29 ; Diabetes type 2, controlled E11.9 ; Gait disturbance R26.9 ; Weakness R53.1 and Muscle spasm M62.838 [facility] [id number] [place] [address] 73824- 2635 Dec, Acute non-recurrent maxillary sinusitis J01.00 [facility] [address] 61602- 3016 Dec, [facility] [address] 27090- 1950 Dec, [facility] [address] 35669- 8567 Dec, Acute non-recurrent maxillary sinusitis J01.00 [facility] [id number] [place] [address] 31552- 9895 Dec, Lumbago with sciatica, right side M54.41 and Lupus erythematosus L93.0 [facility] [id number] [place] [address] 98139- 9969 Dec, Mood disorder F39 [facility] [address] 79242- 6333 Dec, Mood disorder F39 [facility] [id number] [place] [address] 44838- 0322 Dec, [facility] [id number] [place] [address] 17416- 9080 Dec, Acute right ankle pain M25.571 [facility] [id number] [place] [address] 14498- 1138 Nov, Lumbar radiculopathy M54.16 [facility] [id number] [place] [address] 26775- 4486 Nov, [facility] [id number] [place] [address] 68019- 9585 Nov, Mood disorder F39 [facility] [id number] [place] [address] 66519- 2648 Nov, Lumbago with sciatica, right side M54.41 and Other chronic pain G89.29 [facility] [id number] [place] [address] 01621- 1350 Nov, Acute right ankle pain M25.571 [facility] [id number] [place] [address] 98973- 1138 Nov, [facility] [id number] [place] [address] 88934- 4713 Oct, [facility] [id number] [place] [address] 99084- 6606 Oct, Plantar wart of both feet B07.0 [facility] [id number] [place] [address] 12328- 9358 Oct, [facility] [id number] [place] [address] 93025- 7559 Oct, Acute right ankle pain M25.571 and Plantar wart of both feet B07.0 [facility] [id number] [place] [address] 88665- 6208 September, Other chronic pain G89.29 [facility] [id number] [place] [address] 99651- 7962 September, Other chronic pain G89.29 [facility] [id number] [place] [address] 39882- 7721 September, Other chronic pain G89.29 [facility] [id number] [place] [address] 15012- 8376 Aug, Mood disorder F39 [facility] [id number] [place] [address] 71404- 5469 Aug, Other chronic pain G89.29 ; Controlled type 2 diabetes mellitus without complication, without long-term current use of insulin E11.9 ; Low back pain M54.5 and Tinea corporis B35.4 [facility] [id number] [place] [address] 30443- 0158 Aug, Mood disorder F39 and Anxiety F41.9 [facility] [id number] [place] [address] 19221- 7136 Aug, Mood disorder F39 and Anxiety F41.9 [facility] [id number] [place] [address] 74282- 0292 Jul, [facility] [id number] [place] [address] 35373 -1985 Jul, Scabies B86 and BMI 45.0-49.9, adult Z68.42 [facility] [id number] [place] [address] 25657- 3804 Jul, [facility] [id number] [place] [address] 20923- 7890 Jul, Mood disorder F39 [address]9 [facility] [id number] [place] [address] 03378- 0086 Jul, [facility] [address] 59589 -8544 27 Jun, 2017 Bronchitis J40 ; Dark urine R82.99 and BMI 45.0-49.9, adult Z68.42 [facility] [id number] [place] [address] 11431- 2411 14 Jun, 2017 Acute pain of right shoulder M25.511 and Acute pain of right knee M25.561 [facility] [id number] [place] [address] 34410- 7040 May, BMI 40.0-44.9, adult Z68.41 ; Controlled type 2 diabetes mellitus without complication, without long-term current use of insulin E11.9 ; Muscle cramping R25.2 ; Hot flashes R23.2 ; Mood disorder F39 ; Anxiety F41.9 and Morbid (severe) obesity due to excess calories E66.01 [facility] [id number] [place] [address] 75123- 9516 May, BMI 40.0-44.9, adult Z68.41 ; Controlled type 2 diabetes mellitus without complication, without long-term current use of insulin E11.9 ; Muscle cramping R25.2 and Hot flashes R23.2 [facility] [id number] [place] [address] 62101- 4770 May, Tachycardia with heart rate 121-140 beats per minute R00.0 ; Morbid (severe) obesity due to excess calories E66.01 ; Diabetes type 2, controlled E11.9 and Enlarged thyroid gland E04.9 [facility] [address] [place] [address]- 3678 25 May, 2018 Encounter for well woman [...] and Screening breast examination Z12.31 [facility] [address] 68971- 4394 29 Apr, 2017 Mood disorder F39 ; Other chronic pain G89.29 and Anxiety F41.9 [facility] [address] 93407- 0299 Apr, Lumbago with sciatica, left side M54.42 and Other chronic pain G89.29 [facility] [address] 77000- 4193 Apr, Lupus erythematosus L93.0 [facility] [address] 54384- 8140 Mar, Plantar wart of both feet B07.0 [facility] [address] 83376- 5939 Mar, Lupus erythematosus L93.0 and Sinus drainage J34.89 [facility] [id number] [place] [address] 97378- 0600 Mar, Mood disorder F39 ; Other chronic pain G89.29 and Anxiety F41.9 [facility] [address] 81207- 5971 Mar, Mood disorder F39 ; Arthritis M19.90 and Plantar warts B07.0 [facility] [address] 34828- 6295 Feb, Lupus erythematosus L93.0 [facility] [id number] [place] [address] 53063- 2039 Feb, Other chronic pain G89.29 [facility] [id number] [place] [address] 13741- 0145 Feb, Mood disorder F[address] [facility] [id number] [place] [address] 55770- 9175 Jan, [facility] [id number] [place] [address] 02672- 3971 Jan, Mood disorder F39 [facility] [address] 29481- 9692 Dec, Nail, ingrown L60.0 [facility] [id number] [place] [address] 72685- 5142 Dec, Nail, ingrown L60.0 [facility] [id number] [place] [address] 15861- 7405 Nov, Mood disorder F39 and Anxiety F41.9 [facility] [id number] [place] [address] 37223- 0426 Nov, Sinus drainage J34.89 ; Hot flashes R23.2 ; Anxiety F41.9 and Diabetes type 2, controlled E11.9 [facility] [id number] [place] [address] 38634- 6923 Nov, Nail, ingrown L60.0 [facility] [id number] [place] [address] 07078- 0585 Oct, Anxiety F41.9 and Mood disorder F39 [facility] [id number] [place] [address] 35394- 3693 Oct, Nail, ingrown L60.[address] [facility] [id number] [place] [address] 27620- 8628 Oct, Lupus erythematosus L93.0 [facility] [address] [address]- 1083 September, [facility] [id number] [place] [address] 13336- 9211 September, [facility] [id number] [place] [address] 77566- 5381 September, Lupus erythematosus L93.0 [facility] [id number] [place] [address] 70428- 3277 Aug, [facility] [id number] [place] [address] 97204- 1731 Aug, Mood disorder F39 [address]9 [facility] [id number] [place] [address] 66419- 2601 Aug, Lupus erythematosus L93.0 ; Diabetes type 2, controlled E11.9 and Localized edema R60.0 [facility] [id number] [place] [address] 15146- 3707 Aug, [facility] [id number] [place] [address] 24725- 0282 Jul, Anxiety F41.[address] Mood disorder F39 [facility] [id number] [place] [address] 19760- 1517 Jul, Diabetes type 2, controlled E11.9 [facility] [id number] [place] [address] 32832- 4233 Jun, Anxiety F41.9 [facility] [address] [address]- 7113 May, [facility] [id number] [place] [address] 43739- 4372 May, [facility] [id number] [place] [address] 05317- 2354 May, Nausea R11.0 ; Other chronic pain G89.29 and Pain in right knee M25.561 [facility] [id number] [place] [address] 62887- 7092 May, [facility] [id number] [place] [address] 58392- 5262 Apr, Tear of medial meniscus of right knee, current, unspecified tear type, subsequent encounter S83.241D and Tear of lateral meniscus of right knee, current, unspecified tear type, subsequent encounter S83.281D [facility] [id number] [place] [address] 87609- 4365 Apr, Anxiety F41.9 and Mood disorder F39 [facility] [id number] [place] [address] 924857- 2163 Apr, Anxiety F41.9 [facility] [id number] [place] [address] 40493- 0916 Apr, [facility] [id number] [place] [address] 23417- 3317 Mar, [facility] [id number] [place] [address] 04038- 3934 Mar, Lupus erythematosus L93.0 and Diabetes type 2, controlled E11.9 [facility] [id number] [place] [address] 63575- 2362 Mar, Mood disorder F39 [facility] [id number] [place] [address] 29116- 0563 Mar, Tear of lateral meniscus of right knee, current, unspecified tear type, initial encounter S83.281A and Osteoarthritis of right knee, unspecified osteoarthritis type M17.9 [facility] [id number] [place] [address] 69901- 5947 02 Mar, 2016 [facility] [id number] [place] [address] 53114- 2866 Feb, Mood disorder F39 [facility] [id number] [place] [address] 15128- 7493 Feb, Rash R21 [facility] [id number] [place] [address] 45952- 8350 Feb, [facility] [id number] [place] [address] 27221- 2556 Jan, Other chronic pain G89.29 and Muscle spasm M62.838 [facility] [id number] [place] [address] 23813- 6263 Jan, Mood disorder F39 [facility] [id number] [place] [address] 38795- 6765 Jan, Pain in right knee M25.561 ; Other chronic pain G89.29 and Muscle spasm M62.838 [facility] [id number] [place] [address] 02515- 3213 Dec, [facility] [id number] [place] [address] 19329- 9100 Dec, [facility] [id number] [place] [address] 35817- 7019 Nov, [facility] [id number] [place] [address] 44327- 0768 Nov, Mood disorder F39 [facility] [id number] [place] [address] 87872- 5024 Nov, Diabetes type 2, controlled E11.9 ; Bronchitis J40 ; Edema, unspecified type R60.9 ; Weight gain R63.5 and Right knee pain, unspecified chronicity M25.561 [facility] [id number] [place] [address] 18492- 1700 Oct, Mood disorder F39 [facility] [id number] [place] [address] 27296- 6808 Oct, Lupus erythematosus L93.0 and Bilateral edema of lower extremity R60.0 [facility] [id number] [place] [address] 76589- 5100 Oct, Mood disorder F39 [address]9 [facility] [id number] [place] [address] 72851- 5021 September, Mood disorder F39 ; Anxiety F41.9 and Anger reaction R45.4 [facility] [id number] [place] [address] 67137- 7611 September, Diabetes type 2, controlled E11.9 ; Edema, unspecified type R60.9 and Fatigue, unspecified type R53.83 [facility] [id number] [place] [address] 76449- 4420 Aug, Mood disorder F39 and Generalized anxiety disorder F41.1 [facility] [id number] [place] [address] 77075- 9514 Aug, Diabetes type 2, controlled E11.9 ; Sinusitis J32.9 and Mood disorder F39 [facility] [id number] [place] [address] 29656- 1163 Aug, Lupus erythematosus L93.0 [facility] [id number] [place] [address] 93722- 3124 Aug, [facility] [id number] [place] [address] 71508- 9884 Aug, [facility] [id number] [place] [address] 03957- 7038 Jul, Diabetes type 2, controlled E11.9 [facility] [id number] [place] [address] 28765- 8788 Jul, Mood disorder F39 [address] Depression [address]32[address]9 [facility] [id number] [place] [address] 31153- 0798 Jul, Lupus erythematosus L93.0 and Diabetes type 2, controlled E11.9 [facility] [id number] [place] [address] 86231- 2903 07 Jul, 2015 Mood disorder F39 [address]9 [facility] [address] [place] [address]- 7689 [address], 2015 [facility] [address] [address]- 9911 Jul, [facility] [address] [address]- 8814 Jun, Mood disorder F39 [address]9 [facility] [id number] [place] [address] 26636- 9112 Jun, Mood disorder F39 [facility] [address] [place] [address]- 4014 [address], 2015 [facility] [id number] [place] [address] 71556- 0381 Jun, [facility] [address], [place] [address]- 9709 Jun, Mood disorder F39 [facility] [address] [address]- 6120 Jun, [facility] [id number] [place] [address] 47689- 6155 May, [facility] [address] [address]- 6283 May, [facility] [address] [address]- 7[address] May, [facility] [address] [address]- 5294 May, [facility] [address] [address]- 3551 May, Anxiety F41.9 ; Dermatomyositis M33.90 and Diabetes type 2, controlled E11.9 [facility] [address] [address] -1222 May, Sinusitis J32.[address] [facility] [address] [address]- 2788 May, Mood disorder F39 [facility] [id number] [place] [address] 35780- 1447 May, Adjustment disorder with mixed anxiety and depressed mood F43.23 [facility] [id number] [place] [address] 65550- 2952 Apr, [facility] [id number] [place] [address] 43987- 8581 Apr, [facility] [id number] [place] [address] 13583- 5856 Apr, Generalized anxiety disorder F41.1 and Mood disorder F39 [facility] [id number] [place] [address] 76752- 8320 Mar, [facility] [id number] [place] [address] 90729- 2274 Mar, [facility] [id number] [place] [address] 20730- 3109 Mar, [facility] [id number] [place] [address] 78787- 0125 Mar, Mood disorder F39 [facility] [id number] [place] [address] 48876- 6911 Feb, [facility] [id number] [place] [address] 46614- 3058 Feb, Diabetes E11.[address] [facility] [id number] [place] [address] 13398- 4206 Feb, [facility] [id number] [place] [address] 91749- 9291 Feb, [facility] [id number] [place] [address] 98333- 4498 Feb, Major depression, recurrent, full remission F33.42 and KELLY ( generalized anxiety disorder) F41.1 [place] [id number] [place] [address] 69537- 4011 Feb, [place] [id number] [place] [address] 14111- 1329 Feb, Single major depressive episode, in partial or unspecified remission F32.5 [place] [id number] [place] [address] 48050- 8943 Jan, Fatigue 780.79 [place] [address] 77508- 3583 Jan, [address] 40743- 6620 Jan, Diabetes with other specified manifestations, type II or unspecified type, not stated as uncontrolled 250.80 [place] [id number] [place] [address] 14968- 9995 Jan, [place] [id number] [place] [address] 99618- 4142 Dec, Hot flashes 627.2 ; Memory loss 780.93 and Joint pain 719.40 [place] [id number] [place] [address] 71742- 1437 Dec, Major depression, recurrent 296.30 ; Generalized anxiety disorder 300.02 ; Adjustment disorder with depressed mood 309.0 and No condition on [place] II V71.09 [place] [id number] [place] [address] 19711- 7588 Dec, [place] [id number] [place] [address] 72547- 4852 Nov, Cognitive and neurobehavioral dysfunction 294.9 ; Major depressive disorder, recurrent episode, moderate degree 296.32 and Anxiety state , unspecified 300.[id number] [place] [address] 33309- 4808 Nov, [place] [id number] [place] [address] 26058- 5370 Nov, Bronchitis 490 and Diabetes with other specified manifestations, type II or unspecified type, not stated as uncontrolled 250.80 [place] [id number] [place] [address] 34976- 7240 Nov, Major depressive disorder, recurrent episode, moderate 296.32 and Anxiety disorder, unspecified 300.[address] [place] [id number] [place] [address] 47718- 9174 Nov, Anxiety, generalized 300.02 ; Intermittent explosive disorder 312.34 ; No condition on [place] II V71.09 and No condition on axis III V71.09 [place] [id number] [place] [address]30- 4129 Oct, Diabetes with other specified manifestations, type II or unspecified type, not stated as uncontrolled 250.80 ; Urinary tract infection, site not specified 599.0 and Bronchitis [id number] [place] [address] 42306- 2416 Oct, Intermittent explosive disorder 312.34 ; Bipolar 1 disorder , depressed, moderate 296.52 ; Major depression, chronic 296.20 ; No condition on Flint II V71.09 and No condition on axis III V71.09 [address] [id number] [place] [address] 40700- 6999 Oct, Major depressive disorder, recurrent episode, moderate 296.32 ; Anxiety state 300.00 ; Cognitive decline 294.9 and No condition on [place] II V71.09 [place] [id number] [place] [address] 24404- 7971 Oct, [place] [id number] [place] [address] 34514- 2269 Oct, Major depressive disorder, recurrent episode, moderate 296.32 ; Anxiety disorder, unspecified 300.00 and Persistent disorder of initiating or maintaining sleep 307.42 [place] [id number] [place] [address] 06477- 5744 September, Diabetes with other specified manifestations, type II or unspecified type, not stated as uncontrolled 250.80 ; Memory loss 780.93 [address] [facility] [address] [address]65 September, No condition on [place] II V71.09 ; Major depression, recurrent 296.30 and Persistent mood [affective] disorder, unspecified 296.90 [facility] [address], [place] [address] Aug, [facility] [address] [address] Aug, [facility] [address] [address] Aug, [facility] [address] [address] 1016 Jul, [facility] [address] [address] 2545 Jul, [facility] [address], [place] [address] 2833 Jul, [facility] [address]- [address] Jul[address] [facility] [address] 37[address] Jul, [facility] [address], [place] [address] 2857 Jun, [facility] [address], [place] [address] 3[address] Jun, [facility] [address]- [address] Jun[place] [facility] [address] [address] 32[address] Jun, [facility] [address], [place] [address]- 4661 Jun, [facility] [place] [facility] [address] [id number] [place] [address]- 5688 Jun, 2014 [facility] [place] [facility] [address] [id number] [place] [address]- 0756 Jun, 2014 [facility] [place] [facility] [address] [id number] [place] [address]- 5005 Jun, 2014 [facility] [place] [facility] [address] [id number] [place] [address]- 5485 Jun, 2014 [facility] [place] [facility] [address] [id number] [place] [address]- 4118 Jun, 2014 [facility] [place] [facility] [address] [id number] [place] [address]- 9685 Jun, 2014 [facility] [place] [facility] [address] [id number] [place] [address]- 8100 Jun, 2014 [facility] [place] [facility] [address] [id number] [place] [address]- 5177 Jun, 2014 [facility] [place] [facility] [address] [id number] [place] [address]- 0895 May, [facility] [place] [facility] [address] [id number] [place] [address]- 8903 May, [facility] [place] [facility] [address] [id number] [place] [address]- 2708 Apr, [facility] [place] [facility] [address] [id number] [place] [address]- 5807 Apr, [facility] [place] [facility] [address] [id number] [place] [address]- 9494 Apr, [facility] [place] [facility] [address] [id number] [place] [address]- 0389 Apr, [facility] [place] [facility] [address] [id number] [place] [address]- 5265 Apr, [facility] [place] [facility] [address] [id number] [place] [address]- 5611 Apr, [facility] [address] [id number] [place] [address]- 1500 Apr, [facility] [place] [facility] [address] [id number] [place] [address]- 3416 Apr, [facility] [address] [id number] [place] [address]- 6736 Apr, [facility] [place] [facility] [address] [id number] [place] [address]- 2574 15 Apr, 2014 [facility] [address] [id number] [place] [address]- 6963 Apr, [facility] [address] [id number] [place] [address]- 0342 Apr, [facility] [place] [facility] [address] [id number] [place] [address]- 3224 Apr, [facility] [address] [id number] [place] [address]- 8977 Apr, [facility] [place] [facility] [address] [id number] [place] [address]- 5367 Apr, [facility] [address] [id number] [place] [address]- 4268 Apr, [facility] [place] [facility] [address] [id number] [place] [address]- 5383 Apr, [facility] [place] [facility] [address] [id number] [place] [address]- 6669 Apr, [facility] [place] [facility] [address] [id number] [place] [address]- 7097 Apr, [facility] [place] [facility] [address] [id number] [place] [address]- 0135 Apr, [facility] [place] [facility] [address] [id number] [place] [address]- 4150 Mar, [facility] [place] [facility] [address] [id number] [place] [address]- 6659 Mar, [facility] [place] [facility] [address] [id number] [place] [address]- 0487 Mar, [facility] [place] [facility] [address] [id number] [place] [address]- 6099 Mar, [facility] [place] [facility] [address] [id number] [place] [address]- 7927 Mar, [facility] [place] [facility] [address] [id number] [place] [address]- 9139 Mar, [facility] [place] [facility] [address] [id number] [place] [address]- 8075 Mar, [facility] [place] [facility] [address] [id number] [place] [address]- 8601 Mar, [facility] [place] [facility] [address] [id number], [place] [address]- 6600 Mar, [facility] [place] [facility] [address] [id number] [place] [address]- 2699 Mar, [facility] [place] [facility] [address] [id number], [place] [address]- 8443 Mar, [facility] [place] [facility] [address] [id number], [place] [address]- 9484 Mar, [facility] [place] [facility] [address] [id number], [place] [address]- 3186 Mar, [facility] [place] [facility] [address] [id number] [place] [address]- 7361 Feb, [facility] [place] [facility] [address] [id number] [place] [address]- 7768 Feb, [facility] [place] [facility] [address] [id number], [place] [address]- 7848 Feb, [facility] [place] [facility] [address] [id number], [place] [address]- 6956 Feb, [facility] [place] [facility] [address] [id number] [place] [address]- 9918 Feb, [facility] [place] [facility] [address] [id number] [place] [address]- 1523 Feb, [facility] [place] [facility] [address] [id number] [place] [address]- 7968 Feb, [facility] [place] [facility] [address] [id number] [place] [address]- 6879 Feb, [facility] [place] [facility] [address] [id number] [place] [address]- 5500 Feb, [facility] [place] [facility] [address] [id number] [place] [address]- 7645 Feb, [facility] [place] [facility] [address] [id number] [place] [address]- 7222 Feb, [facility] [place] [facility] [address] [id number] [place] [address]- 1459 10 Feb, 2014 [facility] [place] [facility] [address] [id number] [place] [address]- 3709 10 Feb, 2014 [facility] [place] [facility] [address] [id number] [place] [address]- 0323 07 Feb, 2014 [facility] [place] [facility] [address] [id number], [place] [address]- 3732 07 Feb, 2013 [facility] [place] [facility] [address] [id number], [place] [address]- 1026 10 Jan, 2013 [facility] [place] [facility] [address] [id number] [place] [address]- 4951 08 Sep, 2013 [facility] [place] [facility] [address] [id number] [place] [address]- 8377 08 Sep, 2013 [facility] [place] [facility] [address] [id number] [place] [address]- 9591 08 Sep, 2013 [facility] [place] [facility] [address] [id number] [place] [address]- 8597 Jan, [facility] [place] [facility] [address] [id number] [place] [address]- 0808 Dec, [facility] [place] [facility] [address] [id number] [place] [address]- 2541 Dec, [facility] [place] [facility] [address] [id number] [place] [address]- 4633 Dec, [facility] [place] [facility] [address] [id number] [place] [address]- 2401 Dec, [facility] [place] [facility] [address] [id number] [place] [address]- 6414 Nov, [facility] [place] [facility] [address] [id number] [place] [address]- 5079 Nov, [facility] [place] [facility] [address] [id number] [place] [address]- 3692 Nov, [facility] [place] [facility] [address] [id number] [place] [address]- 7126 Nov, [facility] [place] [facility] [address] [id number] [place] [address]- 7059 Nov, [facility] [place] [facility] [address] [id number] [place] [address]- 3454 Nov, [facility] [place] [facility] [address] [id number] [place] [address]- 4923 Nov, [facility] [place] [facility] [address] [id number] [place] [address]- 9238 Nov, [facility] [place] [facility] [address] [id number] [place] [address]- 0448 Nov, [facility] [place] [facility] [address] [id number] [place] [address]- 5056 Nov, [facility] [place] [facility] [address] [id number] [place] [address]- 8345 Oct, [facility] [place] [facility] [address] [id number] [place] [address]- 4012 Oct, [facility] [place] [facility] [address] [id number] [place] [address]- 3295 September, [facility] [place] [facility] [address] [id number] [place] [address]- 7155 September, [facility] [place] [facility] [address] [id number] [place] [address]- 7825 September, [facility] [place] [facility] [address] [id number] [place] [address]- 7949 September, [facility] [place] [facility] [address] [id number] [place] [address]- 6411 Aug, [facility] [place] [facility] [address] [id number] [place] [address]- 2839 Aug, [facility] [place] [facility] [address] [id number] [place] [address]- 6877 Aug, [facility] [place] [facility] [address] [id number] [place] [address]- 0765 24 Jul, 2013 [facility] [place] [facility] [address] [id number] [place] [address]- 2572 24 Jul, 2013 [facility] [place] [facility] [address] [id number] [place] [address]- 0678 Jul, [facility] [place] [facility] [address] [id number] [place] [address]- 2943 Jul, [facility] [place] [facility] [address] [id number] [place] [address]- 0588 May, [facility] [place] [facility] [address] [id number] [place] [address]- 0879 May, [facility] [place] [facility] [address] [id number] [place] [address]- 3890 May, [facility] [place] [facility] [address] [id number] [place] [address]- 3155 15 Mar, 2013 [facility] [address] [id number] [place] [address]- 8811 15 Mar, 2013 [facility] [place] [facility] [address] [id number] [place] [address]- 2035 13 Mar, 2013 [facility] [place] [facility] [address] [id number] [place] [address]- 8171 Mar, [facility] [place] [facility] [address] [id number] [place] [address]- 4845 16 Feb, 2013 [facility] [place] [facility] [address] [id number] [place] 7828 16 Feb, 2013 [facility] [place] [facility] [address] [id number] [place] [address]- 4394 Feb, [facility] [place] [facility] [address] [id number] [place] [address]- 3873 16 Jan, 2013 [facility] [place] [facility] [address] [id number] [place] [address]- 8480 12 Jan, 2013 [facility] [place] [facility] [address] [id number] [place] [address]- 0894 Jan, [facility] [place] [facility] [address] [id number] [place] [address]- 3644 Dec, [facility] [place] [facility] [address] [id number] [place] [address]- 9881 Dec, [facility] [place] [facility] [address] [id number] [place] [address]- 8356 Dec, [facility] [place] [facility] [address] [id number] [place] [address]- 6097 Dec, [facility] [place] [facility] [address] [id number] [place] [address]- 7560 Nov, [facility] [place] [facility] [address] [id number] [place] 2602 Oct, [facility] [place] [facility] [address] [id number] [place] [address]- 8053 Oct, [facility] [address] [id number] [place] [address]- 0678 September, [facility] [address] [id number] [place] [address]- 7362 September, [facility] [address] [id number] [place] [address]- 3474 September, [facility] [address] [id number] [place] [address]- 8853 Aug, [facility] [address] [id number] [place] [address]- 8320 Aug, [facility] [address] [id number] [place] [address]- 2266 Aug, [facility] [address] [id number] [place] [address]- 8133 Aug, [facility] [address] [id number] [place] [address]- 0120 26 Jul, 2012 [facility] [address] [id number] [place] [address]- 3565 25 Jul, 2012 [facility] [address] [id number] [place] [address]- 9043 21 Jul, 2012 [facility] [address] [id number] [place] [address]- 0062 15 Jul, 2012 [facility] [address] [id number] [place] [address]- 2288 14 Jul, 2012 [facility] [place] [facility] [address] [id number] [place] [address]- 2213 13 Jul, 2012 [facility] [place] [facility] [address] [id number] [place] [address]- 5100 13 Jul, 2012 [facility] [place] [facility] [address] [id number] [place] [address]- 3121 Jun, [facility] [address] [id number] [place] [address]- 6944 Jun, [facility] [address] [id number] [place] [address]- 9001 Jun, [facility] [address] [id number] [place] [address]- 0647 Jun, [facility] [address] [id number] [place] [address]- 1022 May, [facility] [address] [id number] [place] [address]- 4616 May, [facility] [address] [id number] [place] [address]- 9981 May, [facility] [address] [id number] [place] [address]- 9053 May, [facility] [address] [id number] [place] [address]- 1123 May, [facility] [address] [id number] [place] [address]- 1697 Apr, [facility] [address] [id number] [place] [address]- 2355 Apr, [facility] [address] [id number], [place] [address]- 4016 Mar, [facility] [place] [facility] [address] [id number] [place] [address]- 3541 Mar, [facility] [place] [facility] [address] [id number] [place] [address]- 8907 Mar, [facility] [place] [facility] [address] [id number] [place] [address]- 8522 Mar, [facility] [place] [facility] [address] [id number] [place] [address]- 9539 Mar, [facility] [place] [facility] [address] [id number] [place] [address]- 3641 Mar, [facility] [place] [facility] [address] [id number] [place] [address]- 9152 Mar, [facility] [place] [facility] [address] [id number] [place] [address]- 2546 Mar, [facility] [place] [facility] [address] [id number] [place] [address]- 3310 Mar, [facility] [place] [facility] [address] [id number] [place] [address]- 1309 Mar, [facility] [place] [facility] [address] [id number] [place] [address]- 0986 Feb, [facility] [place] [facility] [address] [id number] [place] [address]25 Feb, [facility] [place] [facility] [address] [id number] [place] [address]- 5960 Feb, [facility] [place] [facility] [address] [id number] [place] [address]- 3879 Feb, [facility] [place] [facility] [address] [id number] [place] [address]- 3765 Feb, [facility] [place] [facility] [address] [id number] [place] [address]- 1204 Feb, [facility] [place] [facility] [address] [id number] [place] [address]- 8977 Feb, [facility] [place] [facility] [address] [id number] [place] [address]- 1277 Jan, [facility] [place] [facility] [address] [id number] [place] [address]- 2451 Jan, [facility] [place] [facility] [address] [id number] [place] [address]- 1886 Dec, [facility] [place] [facility] [address] [id number] [place] [address]- 7197 Dec, [facility] [place] [facility] [address] [id number] [place] [address]- 8400 Dec, [facility] [place] [facility] [address] [id number] [place] [address]- 4422 Dec, [facility] [place] [facility] [address] [id number] [place] [address]- 1782 Dec, [facility] [place] [facility] [address] [id number] [place] [address]- 6205 Dec, [facility] [place] [facility] [address] [id number] [place] [address]- 9357 Nov, [facility] [place] [facility] [address] [id number] [place] [address]- 1389 Nov, [facility] [place] [facility] [address] [id number] [place] [address]- 4504 Nov, [facility] [place] [facility] [address] [id number] [place] [address]- 9911 Nov, [facility] [place] [facility] [address] [id number] [place] [address]- 0425 September, [facility] [place] [facility] [address] [id number] [place] [address] September, [facility] [place] [facility] [address] [id number] [place] [address] September, [facility] [place] [facility] [address] [id number] [place] [address] Jul, [facility] [place] [facility] [address] [id number] [place] [address] Jun, [facility] [place] [facility] [address] [id number] [place] [address] Jun, [facility] [place] [facility] [address] [id number] [place] [address] Jun, [facility] [place] [facility] [id number] [address] 14 Apr, 2011 [facility] [address] [id number] [address] Mar, [facility] [id number] [place] [address] 15 Mar, [address] [facility] [address] [id number] [address] Feb, [facility] [id number] [address] Feb, [facility] [id number] [address] Feb, [facility] [id number], [place] [address] Jul, [facility] [id number] [place] [address] Feb, IMMUNIZATIONS No Known Immunizations SOCIAL HISTORY Never Assessed REASON FOR VISIT Victoza PLAN OF CARE VITAL SIGNS MEDICATIONS Medication Instructions Dosage Frequency Start Date End Date Duration Status Victoza 18 mg/3ml 1.8 mg injection 24h 90 days Active NovoFine 32G X 6 MM use with victoza pen syringe 24h Jan, 90 days Active RESULTS No Results PROCEDURES [...]
--- OUTSIDE RECORDS SUMMARY | 2018-05-09 23:24 | XMS REPORT ---
Author Author FAUSTO HERRERA [facility] Address [address] [place] [address] Care Team Providers Care Manager Graphic Name Role Phone FAUSTO HERRERA Unavailable PROBLEMS Type Condition ICD9-CM Code [id number] Code Onset Dates Condition Status SNOMED Code Problem Controlled type 2 diabetes mellitus without complication, without long -term current use of insulin E11.9 Active 492349462 Problem Body mass index (BMI) of 45.0-49.9 in adult Z68.42 Active 148483754 Problem Tachycardia with heart rate 121-140 beats per minute R00.0 Active 8672114 Problem Facial droop R29.810 Active 08574988 Problem Menopause Z78.0 Active 830999666 Problem Gait disturbance R26.9 Active 12510085 Problem Dermatomyositis M33.90 Active 765272765 Problem Enlarged thyroid gland E04.9 Active 1247438 Problem Lumbago with sciatica, right side M54.41 Active 606021967 Problem Morbid (severe) obesity due to excess calories E66.01 Active 834657108 Problem Diabetes type 2, controlled E11.9 Active 90250955 Problem Osteoarthritis of right knee, unspecified osteoarthritis type M17.9 Active 305292671 Problem Allergic rhinitis due to pollen J30.1 Active 33649278 Problem Mood disorder F39 Active 49565850 Problem Arthritis M19.90 Active 1429344 Problem Plantar warts B07.0 Active 79220865 Problem Anxiety F41.9 Active 44332141 Problem Plantar wart of both feet B07.0 Active 42966116309808630 Problem Other chronic pain G89.29 Active 03913372 Problem Lumbago with sciatica, left side M54.42 Active 649227945 ALLERGIES Substance Reaction Event Type Date Status Fluarix Quadrivalent vomiting Drug Allergy Jan, Active Zoloft makes very angry Drug Allergy Jan, Active Fluarix vomiting Drug Allergy Jan, Active Aspirin rash Drug Allergy Jan, Active Latex, Natural Rubber rash Non Drug Allergy Jan, Active ENCOUNTERS Encounter Location Date Diagnosis [facility] [id number] [place] [address] 69446- 4631 Mar, [facility] [id number] [place] [address] 65816- 9575 Feb, [facility] [id number] [place] [address] 80474- 6694 Feb, [facility] [id number] [place] [address] 18988- 1645 Feb, [facility] [id number] [place] [address] 04496- 1864 Jan, [facility] [id number] [place] [address] 51830- 8528 Jan, BMI 45.0-49.9, adult Z68.42 and 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 [facility] [id number] [place] [address] 04531- 2654 Jan, [facility] [id number] [place] [address] 54563- 4957 Jan, [facility] [id number] [place] [address] 07446- 8900 Jan, [facility] [id number] [place] [address] 74318- 0997 Jan, 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 [facility] [id number] [place] [address] 02458- 3022 Jan, [facility] [id number] [place] [address] 45425- 5058 Jan, [facility] [id number] [place] [address] 15913- 4649 Jan, [facility] [id number] [place] [address] 22230- 0315 Jan, Allergic reaction to drug, initial encounter T78.40XA [place] [address] 39800- 5447 17 Jan, 2018 BMI 45.0-49.9, adult Z68.42 and Facial droop R29.810 [place] [address] 86087- 3627 14 Jan, 2018 Mood disorder F39 [place] [address] 95164- 7967 11 Jan, 2018 Dermatomyositis M33.90 and BMI 40.0-44.9, adult Z68.41 [place] [address] 77460- 5181 10 Jan, 2018 [place] [address] 52130- 8120 05 Jan, 2018 [place] [address] 22610- 8806 04 Jan, 2018 Irritation of left eye H57.8 and BMI 40.0-44.9, adult Z68.41 [place] [address] 68140- 7339 Dec, Diabetes type 2, controlled E11.9 [place] [address] 43352- 6885 Dec, Acute right ankle pain M25.571 [place] [address] 26025- 7939 Dec, Other chronic pain G89.29 ; Diabetes type 2, controlled E11.9 ; Gait disturbance R26.9 ; Weakness R53.1 and Muscle spasm M62.838 [place] [address] 92236- 6984 Dec, Acute non-recurrent maxillary sinusitis J01.00 [place] [address] 63628- 7383 Dec, [facility] [id number] [place] [address] 89699- 4205 Dec, [facility] [id number] [place] [address] 97569- 2391 Dec, Acute non-recurrent maxillary sinusitis J01.00 [facility] [id number] [place] [address] 73248- 4829 Dec, Lumbago with sciatica, right side M54.41 and Lupus erythematosus L93.0 [facility] [id number] [place] [address] 59738- 8782 Dec, Mood disorder F39 [facility] [id number] [place] [address] 71792- 3477 Dec, Mood disorder F39 [facility] [id number] [place] [address] 70237- 5158 Dec, [facility] [id number] [place] [address] 63946- 4117 Dec, Acute right ankle pain M25.571 [facility] [id number] [place] [address] 03225- 0817 Nov, Lumbar radiculopathy M54.16 [facility] [id number] [place] [address] 28067- 6468 Nov, [facility] [id number] [place] [address] 62872- 2706 Nov, Mood disorder F39 [facility] [id number] [place] [address] 68583- 5272 Nov, Lumbago with sciatica, right side M54.41 and Other chronic pain G89.29 [facility] [id number] [place] [address] 33468- 3506 Nov, Acute right ankle pain M25.571 [facility] [id number] [place] [address] 54528- 0193 Nov, [facility] [id number] [place] [address] 63122- 4870 Oct, [facility] [id number] [place] [address] 80142- 5599 Oct, Plantar wart of both feet B07.0 [facility] [id number] [place] [address] 62536- 2142 Oct, [facility] [id number] [place] [address] 78755- 2950 Oct, Acute right ankle pain M25.571 and Plantar wart of both feet B07.0 [place] [id number] [place] [address] 73454- 3046 September, Other chronic pain G89.29 [place] [id number] [place] [address] 68166- 9738 September, Other chronic pain G89.29 [place] [id number] [place] [address] 53784- 6126 September, Other chronic pain G89.29 [place] [id number] [place] [address] 29917- 5627 Aug, Mood disorder F39 [place] [id number] [place] [address] 92737- 2318 Aug, Other chronic pain G89.29 ; Controlled type 2 diabetes mellitus without complication, without long-term current use of insulin E11.9 ; Low back pain M54.5 and Tinea corporis B35.4 [place] [id number] [place] [address] 32867- 4780 Aug, Mood disorder F39 and Anxiety F41.9 [place] [id number] [place] [address] 74082- 5465 Aug, Mood disorder F39 and Anxiety F41.9 [place] [id number] [place] [address] 65996- 4381 Jul, [facility] [id number] [place] [address] 42376 -9546 13 Jul, 2017 Scabies B86 and BMI 45.0-49.9, adult Z68.42 [place] [id number] [place] [address] 08714- 2765 Jul, [place] [address] 32205- 2698 Jul, Mood disorder F39 and Anxiety F41.9 [place] [address] 67941- 3704 Jul, [facility] [place] [id number] [place] [address] 15485 -3363 27 Jun, 2017 Bronchitis J40 ; Dark urine R82.99 and BMI 45.0-49.9, adult Z68.42 [place] [id number] [place] [address] 48861- 7304 14 Jun, 2017 Acute pain of right shoulder M25.511 and Acute pain of right knee M25.561 [place] [id number] [place] [address] 59255- 5919 May, BMI 40.0-44.9, adult Z68.41 ; Controlled type 2 diabetes mellitus without complication, without long-term current use of insulin E11.9 ; Muscle cramping R25.2 ; Hot flashes R23.2 ; Mood disorder F39 ; Anxiety F41.9 and Morbid (severe) obesity due to excess calories E66.01 [place] [id number] [place] [address] 70401- 9310 May, BMI 40.0-44.9, adult Z68.41 ; Controlled type 2 diabetes mellitus without complication, without long-term current use of insulin E11.9 ; Muscle cramping R25.2 and Hot flashes R23.2 [place] [id number] [place] [address] 59700- 7024 May, Tachycardia with heart rate 121-140 beats per minute R00.0 ; Morbid (severe) obesity due to excess calories E66.01 ; Diabetes type 2, controlled E11.9 and Enlarged thyroid gland E04.9 [place] [id number] [place] [address] 02632- 6278 May, Encounter for well woman exam with [...] Dysuria R30.0 and Screening breast examination Z12.31 [place] [id number] [place] [address] 79939- 2422 Apr, Mood disorder F39 ; Other chronic pain G89.29 and Anxiety F41.9 [place] [id number] [place] [address] 44050- 1363 Apr, Lumbago with sciatica, left side M54.42 and Other chronic pain G89.29 [place] [id number] [place] [address] 06596- 5074 Apr, Lupus erythematosus L93.0 [place] [id number] [place] [address] 25829- 7217 Mar, Plantar wart of both feet B07.0 [place] [id number] [place] [address] 21444- 0216 Mar, Lupus erythematosus L93.0 and Sinus drainage J34.89 [place] [id number] [place] [address] 22917- 7057 09 Mar, 2017 Mood disorder F39 ; Other chronic pain G89.29 and Anxiety F41.[address] 44597- 5867 Mar, Mood disorder F39 ; Arthritis M19.90 and Plantar warts B07.0 [facility] [address] 85358- 6944 Feb, Lupus erythematosus L93.0 [facility] [id number] [place] [address] 53657- 5010 Feb, Other chronic pain G89.29 [facility] [address] 98909- 1742 Feb, Mood disorder F39 and Anxiety F41.9 [facility] [address] 56737- 6523 Jan, [facility] [address] 51412- 6394 Jan, Mood disorder F39 [facility] [address] 38432- 7419 Dec, Nail, ingrown L60.0 [facility] [address] 55312- 6523 Dec, Nail, ingrown L60.0 [facility] [address] 67675- 1109 Nov, Mood disorder F39 and Anxiety F41.9 [facility] [id number] [place] [address] 60431- 3227 Nov, Sinus drainage J34.89 ; Hot flashes R23.2 ; Anxiety F41.9 and Diabetes type 2, controlled E11.9 [facility] [address] 48082- 0045 Nov, Nail, ingrown L60.0 [facility] [id number] [place] [address] 74281- 4467 Oct, Anxiety F41.9 and Mood disorder F39 [facility] [address] 06983- 4334 Oct, Nail, ingrown L60.0 and Anxiety F41.9 [facility] [id number] [place] [address] 61607- 4611 Oct, Lupus erythematosus L93.0 [facility] [id number] [place] [address] 77801- 0570 September, [facility] [address] 02475- 9649 September, [facility] [id number] [place] [address] 12786- 5432 September, Lupus erythematosus L93.0 [facility] [id number] [place] [address] 75588- 8036 Aug, [facility] [id number] [place] [address] 94280- 4842 Aug, Mood disorder F39 and Anxiety F41.9 [facility] [id number] [place] [address] 88412- 1044 Aug, Lupus erythematosus L93.0 ; Diabetes type 2, controlled E11.9 and Localized edema R60.0 [facility] [id number] [place] [address] 69974- 7831 Aug, [facility] [id number] [place] [address] 25912- 9157 Jul, Anxiety F41.9 and Mood disorder F39 [facility] [id number] [place] [address] 66011- 5361 Jul, Diabetes type 2, controlled E11.9 [facility] [id number] [place] [address] 45500- 3598 Jun, Anxiety F41.9 [facility] [id number] [place] [address] 64234- 6611 May, [facility] [id number] [place] [address] 34511- 7793 May, [place] [id number] [place] [address] 49469- 3429 May, Nausea R11.0 ; Other chronic pain G89.29 and Pain in right knee M25.561 [place] [id number] [place] [address] 43106- 2503 May, [place] [address] 71094- 7942 Apr, Tear of medial meniscus of right knee, current, unspecified tear type, subsequent encounter S83.241D and Tear of lateral meniscus of right knee, current, unspecified tear type, subsequent encounter S83.281D [place] [address] 76301- 4400 Apr, Anxiety F41.9 and Mood disorder F39 [place] [address] 71897- 3908 Apr, Anxiety F41.9 [place] [address] 35283- 9599 Apr, [place] [address] 26961- 4318 Mar, [place] [id number] [place] [address] 79913- 1667 Mar, Lupus erythematosus L93.0 and Diabetes type 2, controlled E11.9 [place] [id number] [place] [address] 18065- 5411 Mar, Mood disorder F39 [place] [address] 88330- 3564 Mar, Tear of lateral meniscus of right knee, current, unspecified tear type, initial encounter S83.281A and Osteoarthritis of right knee, unspecified osteoarthritis type M17.9 [place] [id number] [place] [address] 28355- 7086 02 Mar, 2016 [facility] [address] [address]- 7874 Feb, Mood disorder F39 [facility] [id number] [place] [address] 44993- 2119 Feb, Rash R21 [facility] [id number] [place] [address] 32414- 7572 Feb, [facility] [id number] [place] [address] 75528- 9146 Jan, Other chronic pain G89.29 and Muscle spasm M62.838 [facility] [id number] [place] [address] 62818- 9405 Jan, Mood disorder F39 [facility] [id number] [place] [address] 94907- 7659 Jan, Pain in right knee M25.561 ; Other chronic pain G89.29 and Muscle spasm M62.838 [facility] [id number] [place] [address] 26725- 5824 Dec, [facility] [id number] [place] [address] 97873- 4633 Dec, [facility] [id number] [place] [address] 35698- 0846 Nov, [facility] [id number] [place] [address] 46253- 0239 Nov, Mood disorder F39 [facility] [id number] [place] [address] 95692- 2976 Nov, Diabetes type 2, controlled E11.9 ; Bronchitis J40 ; Edema, unspecified type R60.9 ; Weight gain R63.5 and Right knee pain, unspecified chronicity M25.561 [facility] [id number] [place] [address] 79120- 7270 Oct, Mood disorder F39 [facility] [id number] [place] [address] 12418- 6522 Oct, Lupus erythematosus L93.0 and Bilateral edema of lower extremity R60.0 [facility] [id number] [place] [address] 67374- 5761 Oct, Mood disorder F39 and Anxiety F41.9 [facility] [id number] [place] [address] 50945- 2221 September, Mood disorder F39 ; Anxiety F41.9 and Anger reaction R45.4 [facility] [id number] [place] [address] 74974- 5673 September, Diabetes type 2, controlled E11.9 ; Edema, unspecified type R60.9 and Fatigue, unspecified type R53.83 [place] [id number] [place] [address] 71140- 1735 Aug, Mood disorder F39 and Generalized anxiety disorder F41.1 [place] [id number] [place] [address] 39954- 2851 Aug, Diabetes type 2, controlled E11.9 ; Sinusitis J32.9 and Mood disorder F39 [place] [id number] [place] [address] 66451- 8919 Aug, Lupus erythematosus L93.0 [facility] [id number] [place] [address] 64428- 3654 Aug, [facility] [id number] [place] [address] 93372- 3092 Aug, [facility] [id number] [place] [address] 09269- 2569 Jul, Diabetes type 2, controlled E11.9 [facility] [id number] [place] [address] 46137- 2746 Jul, Mood disorder F39 and Depression F32.9 [facility] [id number] [place] [address] 08367- 1556 Jul, Lupus erythematosus L93.0 and Diabetes type 2, controlled E11.9 [facility] [address] [address]- 2494 07 Jul, 2015 Mood disorder F39 and Anxiety F41.9 [facility] [address] [address]- 0926 Jul, [facility] [id number] [place] [address] 04231- 0376 Jul, [facility] [id number] [place] [address] 93694- 0011 Jun, Mood disorder F39 and Anxiety F41.9 [facility] [id number] [place] [address] 35903- 8921 Jun, Mood disorder F39 [facility] [id number] [place] [phone] 18 Jun, 2015 [facility] [id number] [place] [address] [phone] Jun, [facility] [id number] [address] Jun, Mood disorder F39 [facility] [id number] [address] Jun, [facility] [id number] [address] May, [facility] [id number] [address] May, [facility] [id number] [address] May, [facility] [id number] [place] [address] [phone]- [phone] May, [facility] [id number] [address] May, Anxiety F41.9 ; Dermatomyositis M33.90 and Diabetes type 2, controlled E11.9 [facility] [id number] [place] [phone] May, 2016 Sinusitis J32.9 and Cough R05 [facility] [id number] [place] [address] [phone]- [phone] May, Mood disorder F39 [facility] [id number] [place] [address] [phone]- [phone] May, Adjustment disorder with mixed anxiety and depressed mood F43.23 [facility] [facility] [id number] [place] [address] 46386- 1163 Apr, [facility] [id number] [place] [address] 23339- 6818 Apr, [facility] [id number] [place] [address] 83067- 7364 Apr, Generalized anxiety disorder F41.1 and Mood disorder F39 [facility] [id number] [place] [address] 61032- 0616 Mar, [facility] [id number] [place] [address] 88645- 8378 Mar, [facility] [id number] [place] [address] 07617- 5872 Mar, [facility] [id number] [place] [address] 60382- 3472 Mar, Mood disorder F39 [facility] [id number] [place] [address] 16264- 6057 Feb, [facility] [id number] [place] [address] 54944- 0502 Feb, Diabetes E11.9 and Bronchitis J40 [facility] [id number] [place] [address] 64088- 8028 Feb, [facility] [id number] [place] [address] 40356- 6968 Feb, [id number] [place] [address] 56587- 3392 Feb, Major depression, recurrent, full remission F33.42 and KELLY ( generalized anxiety disorder) F41.1 [place] [id number] [place] [address] 67916- 0617 Feb, [place] [id number] [place] [address] 22112- 9644 Feb, Single major depressive episode, in partial or unspecified remission F32.5 [place] [id number] [place] [address] 58948- 6859 Jan, Fatigue 780.79 [place] [id number] [place] [address] 72414- 3273 Jan, [place] [id number] [place] [address] 10437- 4098 Jan, Diabetes with other specified manifestations, type II or unspecified type, not stated as uncontrolled 250.80 [place] [id number] [place] [address] 88420- 9466 Jan, [place] [id number] [place] [address] 46266- 5474 Dec, Hot flashes 627.2 ; Memory loss 780.93 and Joint pain 719.40 [place] [id number] [place] [address] 16542- 2461 Dec, Major depression, recurrent 296.30 ; Generalized anxiety disorder 300.02 ; Adjustment disorder with depressed mood 309.0 and No condition on [place] II V71.09 [place] [id number] [place] [address] 94860- 2606 Dec, [place] [id number] [place] [address] 68497- 0747 Nov, Cognitive and neurobehavioral dysfunction 294.9 ; Major depressive disorder, recurrent episode, moderate degree 296.32 and Anxiety state , unspecified 300.00 [address] [place] [id number] [place] [address] 22363- 9539 Nov, [address] [id number] [place] [id number] [address] Nov, Bronchitis 490 and Diabetes with other specified manifestations, type II or unspecified type, not stated as uncontrolled 250.[address] 53614- 7535 Nov, Major depressive disorder, recurrent episode, moderate 296.32 and Anxiety disorder, unspecified 300.00 [id number] [place] [address] 40789- 4111 Nov, Anxiety, generalized 300.02 ; Intermittent explosive disorder 312.34 ; No condition on Greeley II V71.09 and No condition on axis III V71.[address] 94213- 3243 Oct, Diabetes with other specified manifestations, type II or unspecified type, not stated as uncontrolled 250.80 ; Urinary tract infection, site not specified 599.0 and Bronchitis [id number] [place] [address] 38127- 4499 Oct, Intermittent explosive disorder 312.34 ; Bipolar 1 disorder , depressed, moderate 296.52 ; Major depression, chronic 296.20 ; No condition on Greeley II V71.09 and No condition on axis III V71.[address] [place] [address] 32441- 7519 Oct, Major depressive disorder, recurrent episode, moderate 296.32 ; Anxiety state 300.00 ; Cognitive decline 294.9 and No condition on [place] II V71.09 [id number] [place] [id number] 8301 Oct, [id number] [place] [address] 58404- 3092 Oct, Major depressive disorder, recurrent episode, moderate 296.32 ; Anxiety disorder, unspecified 300.00 and Persistent disorder of initiating or maintaining sleep 307.42 [facility] [address] [address] September, Diabetes with other specified manifestations, type II or unspecified type, not stated as uncontrolled 250.80 ; Memory loss 780.93 and Cognitive complaints 799.59 [facility] [id number] [place] [address] 38470- 8278 September, No condition on Gree[place] II V71.09 ; Major depression, recurrent 296.30 and Persistent mood [affective] disorder, unspecified 296.90 [facility] [id number] [place] [address] 77369- 0800 Aug, [facility] [id number] [place] [address] 095110- 8626 Aug, [facility] [id number] [place] [address] 12068- 6211 Aug, [facility] [id number] [place] [address] [id number]- 0337 Jul, [facility] [id number] [place] [address] 702641- 2366 Jul, [facility] [id number] 9802 Jul, [facility] [address] [address]- 8726 Jul, [facility] [id number] [address]- 8449 Jul, [facility] [id number] [place] [address] 02520- 5856 Jun, [facility] [id number] [place] [address] 24252- 3686 Jun, [facility] [address] [address]- 9879 Jun, [facility] [place] [facility] [address] [id number] [place] [address]- 5755 Jun, 2014 [facility] [place] [facility] [address] [id number] [place] [address]- 2328 Jun, 2014 [facility] [place] [facility] [address] [id number] [place] [address]- 3099 Jun, 2014 [facility] [place] [facility] [address] [id number] [place] [address]- 2327 Jun, 2014 [facility] [place] [facility] [address] [id number] [place] [address]- 4452 Jun, 2014 [facility] [place] [facility] [address] [id number] [place] [address]- 4704 Jun, 2014 [facility] [place] [facility] [address] [facility] [id number] [place] [address]- 8358 Jun, 2014 [facility] [place] [facility] [address] [facility] [address] [facility] [id number] [place] [address]- 2969 Jun, 2014 [facility] [place] [facility] [address] [facility] [address] [facility] [id number] [place] [address]- 6208 Jun, 2014 [facility] [place] [facility] [address] [facility] [id number] [place] [address]- 3153 Jun, 2014 [facility] [place] [facility] [address] [facility] [id number] [place] [address]- 9728 May, [facility] [place] [facility] [address] [id number] [place] [address]- 7248 May, [facility] [place] [facility] [address] [id number] [place] [address]- 5749 Apr, [facility] [place] [facility] [address] [facility] [id number] [place] [address]- 6400 Apr, [facility] [place] [facility] [address] [facility] [id number] [place] [address]- 2720 Apr, [facility] [place] [facility] [address] [facility] [id number] [place] [address]- 6592 Apr, [facility] [place] [facility] [address] [id number] [place] [address]- 1806 Apr, [facility] [place] [facility] [address] [id number] [place] [address]- 9606 Apr, [facility] [place] [facility] [address] [id number] [place] [address]- 2766 Apr, [facility] [place] [facility] [address] [id number] [place] [address]- 2640 Apr, [facility] [place] [facility] [address] [id number] [place] [address]- 5765 Apr, [facility] [place] [facility] [address] [id number] [place] [address]- 3542 Apr, [facility] [place] [facility] [address] [id number] [place] [address]- 5991 Apr, [facility] [place] [facility] [address] [id number] [place] [address]- 3353 Apr, [facility] [place] [facility] [address] [id number] [place] [address]- 6854 Apr, [facility] [place] [facility] [address] [id number] [place] [address]- 8606 Apr, [facility] [place] [facility] [address] [id number] [place] [address]- 6666 Apr, [facility] [place] [facility] [address] [id number] [place] [address]- 4081 Apr, [facility] [place] [facility] [address] [id number] [place] [address]- 9974 Apr, [facility] [place] [facility] [address] [id number] [place] [address]- 4071 Apr, [facility] [place] [facility] [address] [id number] [place] 8252 Apr, [facility] [place] [facility] [address] [id number] [place] [address]- 0334 Apr, [facility] [place] [facility] [address] [id number] [place] [address]- 8506 Mar, [facility] [place] [facility] [address] [id number] [place] [address]- 1605 Mar, [facility] [place] [facility] [address] [id number] [place] [address]- 8055 Mar, [facility] [place] [facility] [address] [id number] [place] [address]- 2362 Mar, [facility] [place] [facility] [address] [id number] [place] [address]- 6175 Mar, [facility] [place] [facility] [address] [id number] [place] [address]- 2269 Mar, [facility] [place] [facility] [address] [id number] [place] [address]- 9056 Mar, [facility] [place] [facility] [address] [id number] [place] [address]- 0861 Mar, [facility] [place] [facility] [address] [id number] [place] [address]- 4936 Mar, [facility] [place] [facility] [address] [id number] [place] [address]- 5404 Mar, [facility] [place] [facility] [address] [id number] [address]- 0376 Mar, [facility] [place] [facility] [address] [id number] [place] [address]- 2327 Mar, [facility] [place] [facility] [address] [id number] [place] [address]- 4661 Mar, [facility] [place] [facility] [address] [id number] [place] [address]- 3981 Feb, [facility] [place] [facility] [address] [id number] [address]- 9019 Feb, [facility] [place] [facility] [address] [id number] [place] [address]- 1833 30 Feb, 2014 [facility] [place] [facility] [address] [id number] [place] [address]- 2493 Feb, [facility] [place] [facility] [address] [id number] [place] [address]- 8520 Feb, [facility] [place] [facility] [address] [id number] [place] [address]- 1949 Feb, [facility] [place] [facility] [address] [id number] [place] [address]- 2544 Feb, [facility] [place] [facility] [address] [id number] [place] [address]- 1597 Feb, [facility] [place] [facility] [address] [id number] [place] [address]- 2848 Feb, [facility] [place] [facility] [address] [id number] [place] [address]- 6411 Feb, [facility] [place] [facility] [address] [id number] [place] [address]- 3148 Feb, [facility] [place] [facility] [address] [id number] [place] [address]- 9449 Feb, [facility] [place] [facility] [address] [id number] [address]- 5834 Feb, [facility] [place] [facility] [address] [id number] [address]- 2999 07 Feb, 2014 [facility] [place] [facility] [address] [id number] [place] [address]- 3284 07 Feb, 2014 [facility] [place] [facility] [address] [id number] [address]- 3862 10 Jan, 2014 [facility] [place] [facility] [address] [id number] [place] [address]- 3597 08 Jan, 2013 [facility] [place] [facility] [address] [id number] [place] [address]- 0204 08 Jan, 2013 [facility] [place] [facility] [address] [id number] [place] [address]- 9641 Jan, [facility] [place] [facility] [address] [id number] [place] [address]- 8926 Jan, [facility] [place] [facility] [address] [id number] [place] [address]- 6490 Dec, [facility] [place] [facility] [address] [id number] [place] [address]- 2273 Dec, [facility] [place] [facility] [address] [id number] [place] [address]- 8813 Dec, [facility] [place] [facility] [address] [id number] [place] [address]- 0652 Dec, [facility] [place] [facility] [address] [id number] [place] [address]- 5577 Nov, [facility] [place] [facility] [address] [id number] [place] [address]- 0302 Nov, [facility] [place] [facility] [address] [id number] [place] [address]- 2918 Nov, [facility] [place] [facility] [address] [id number] [place] [address]- 6289 Nov, [facility] [place] [facility] [address] [id number] [place] [address]- 0160 Nov, [facility] [place] [facility] [address] [id number] [place] [address]- 7841 Nov, [facility] [place] [facility] [address] [id number] [place] [address]- 0988 Nov, [facility] [place] [facility] [address] [id number] [place] [address]- 0411 Nov, [facility] [place] [facility] [address] [id number] [place] [address]- 8226 Nov, [facility] [place] [facility] [address] [id number] [place] [address]- 2610 Nov, [facility] [place] [facility] [address] [id number] [place] [address]- 9867 Oct, [facility] [place] [facility] [address] [id number] [place] [address]- 7563 Oct, [facility] [place] [facility] [address] [id number] [place] [address]- 4460 September, [facility] [place] [facility] [address] [id number] [place] [address]- 9746 September, [facility] [place] [facility] [address] [id number] [place] [address]- 1828 September, [facility] [place] [facility] [address] [id number] [place] [address]- 6733 September, [facility] [place] [facility] [address] [id number] [place] [address]- 7921 Aug, [facility] [place] [facility] [address] [id number] [place] [address]- 2124 Aug, [facility] [place] [facility] [address] [id number] [place] [address]- 5628 Aug, [facility] [place] [facility] [address] [id number] [place] [address]- 7976 Jul, [facility] [place] [facility] [address] [id number] [place] [address]- 0135 Jul, [facility] [place] [facility] [address] [id number] [place] [address]- 1984 Jul, [facility] [place] [facility] [address] [id number] [place] [address]- 4402 Jul, [facility] [place] [facility] [address] [id number] [place] [address]- 9494 May, [facility] [place] [facility] [address] [id number] [place] [address]- 2304 May, [facility] [place] [facility] [address] [id number] [place] [address]- 8796 May, [facility] [place] [facility] [address] [id number] [place] [address]- 7850 Mar, [facility] [place] [facility] [address] [id number] [place] [address]- 3943 15 Mar, 2013 [facility] [place] [facility] [address] [id number] [place] [address]- 4922 Mar, [facility] [place] [facility] [address] [id number] [place] [address]- 5884 Mar, [facility] [place] [facility] [address] [id number] [place] [address]- 2166 16 Feb, 2013 [facility] [place] [facility] [address] [id number] [place] [address]- 7720 Feb, [facility] [place] [facility] [address] [id number] [place] [address]- 5831 Feb, [facility] [place] [facility] [address] [id number] [place] [address]- 9361 16 Jan, 2013 [facility] [place] [facility] [address] [id number] [place] [address]- 3225 Jan, [facility] [place] [facility] [address] [id number] [place] [address]- 0521 Jan, [facility] [place] [facility] [address] [id number] [place] [address]- 4218 Dec, [facility] [place] [facility] [address] [id number] [place] [address]- 4547 Dec, [facility] [place] [facility] [address] [id number] [place] [address]- 1675 Dec, [facility] [place] [facility] [address] [id number] [place] [address]- 0668 Dec, [facility] [place] [facility] [address] [id number] [place] [address]- 6280 Nov, [facility] [address] [id number] [place] [address]- 3096 Oct, [facility] [place] [facility] [address] [id number] [place] [address]- 4826 Oct, [facility] [address] [id number] [place] [address]- 9393 September, [facility] [address] [id number] [place] [address]- 0171 September, [facility] [address] [id number] [place] [address]- 5849 September, [facility] [address] [id number] [place] [address]- 0581 Aug, [facility] [address] [id number] [place] [address]- 0144 Aug, [facility] [address] [id number] [place] [address]- 6702 Aug, [facility] [address] [id number] [place] [address]- 3657 Aug, [facility] [address] [id number] [place] [address]- 5804 Jul, [facility] [address] [id number] [place] [address]- 8722 Jul, [facility] [place] [facility] [address] [id number] [place] [address]- 8937 Jul, [facility] [place] [facility] [address] [id number] [place] [address]- 3410 15 Jul, 2012 [facility] [place] [facility] [address] [id number] [place] [address] 2544 14 Jul, 2012 [facility] [place] [facility] [address] [id number] [place] [address] Jul, [facility] [address] [id number] [place] [address] Jul, [facility] [place] [facility] [address] [id number] [place] [address] Jun, [facility] [place] [facility] [address] [id number] [place] [address] Jun, [facility] [place] [facility] [address] [id number] [place] [address] Jun, [facility] [place] [facility] [address] [id number] [place] [address] Jun, [facility] [place] [facility] [address] [id number] [place] [address] May, [facility] [address] [id number] [place] [address] May, [facility] [place] [facility] [address] [id number] [place] [address] May, [facility] [address] [id number] [place] [address] May, [facility] [place] [facility] [address] [id number] [place] [address] May, [facility] [address] [id number] [place] [address] Apr, [facility] [place] [facility] [address] [id number] [place] [address] Apr, [facility] [place] [facility] [address] [id number] [place] [address] Mar, [facility] [place] [facility] [address] [id number] [place] [address] Mar, [facility] [place] [facility] [address] [id number] [place] [address] Mar, [facility] [place] [facility] [address] [id number] [place] [address] Mar, [facility] [place] [facility] [address] [id number] [place] [address] Mar, [facility] [place] [facility] [address] [id number] [place] [address] Mar, [facility] [place] [facility] [address] [id number] [place] [address] Mar, [facility] [place] [facility] [address] [id number] [place] [address] Mar, [facility] [place] [facility] [address] [id number] [place] [address] Mar, [facility] [place] [facility] [address] [id number] [place] [address] Mar, [facility] [place] [facility] [address] [id number] [place] [address] Feb, [facility] [place] [facility] [address] [id number] [place] [address] Feb, [facility] [place] [facility] [address] [id number] [place] [address] Feb, [facility] [place] [facility] [address] [id number] [place] [address] Feb, [facility] [place] [facility] [address] [id number] [place] [address] Feb, [facility] [place] [facility] [address] [id number] [place] [address] Feb, [facility] [place] [facility] [address] [id number] [place] [address] Feb, [facility] [place] [facility] [address] [id number] [place] [address] Jan, [facility] [place] [facility] [address] [id number] [place] [address] Jan, [facility] [place] [facility] [address] [id number] [place] [address] Dec, [facility] [place] [facility] [address] [id number] [place] [address] Dec, [facility] [place] [facility] [address] [id number] [place] [address] Dec, [facility] [place] [facility] [address] [id number] [place] [address] Dec, [facility] [place] [facility] [address] [id number] [place] [address] Dec, [facility] [place] [facility] [address] [id number] [place] [address] Dec, [facility] [place] [facility] [address] [id number] [place] [address] Nov, [facility] [place] [facility] [address] [id number] [place] [address] Nov, [facility] [place] [facility] [address] [id number] [place] [address] Nov, [facility] [place] [facility] [address] [id number] [place] [address] Nov, [facility] [place] [facility] [address] [id number] [place] [address] September, [facility] [place] [facility] [address] [id number] [place] [address] September, [facility] [place] [facility] [address] [id number] [place] [address] September, [facility] [place] [facility] [address] [id number] [place] [address] Jul, [facility] [place] [facility] [address] [id number] [place] [address] Jun, [facility] [place] [facility] [id number] [address] Jun, [facility] [id number] [address] Jun, [facility] [id number] [address] Apr, [facility] [id number] [address] Mar, [facility] [id number] [place] [address] [id number] Mar, [facility] [id number] [place] [phone] Feb, [facility] [id number] [place] [phone] Feb, [facility] [id number] [place] [phone] Feb, [facility] [id number] [phone] Jul, [facility] [id number] [place] [address] [phone] Feb, IMMUNIZATIONS No Known Immunizations SOCIAL HISTORY Never Assessed REASON FOR VISIT Eye c/o-LOPEZ cedeno, having sharp pain in left. feels like it pressure in eye been going on since PLAN OF CARE Activity Details Follow Up prn Reason: VITAL SIGNS Height 62 in 2018-01-30 Weight 238.1 lbs 2018-01-30 Temperature 96.7 degrees Fahrenheit 2018-01-30 Heart Rate 125 bpm 2018-01-30 Respiratory Rate 20 2018-01-30 Oximetry on room air:98 % 2018-01-30 BMI 43.54 kg/m2 2018-01-30 Blood pressure systolic 110 mmHg 2018-01-30 Blood pressure diastolic 84 mmHg 2018-01-30 MEDICATIONS Medication Instructions Dosage Frequency Start Date End Date Duration Status Terbinafine HCl 1 % Externally Twice a day 1 application to affected area 12h 16 Aug, 2017 Active Folic Acid 1 MG TAKE ONE TABLET BY MOUTH ONCE DAILY (DO NOT TAKE ON DAYS YOU TAKE METHOTREXATE) 30 Active Proventil HFA 108 (90 Base) MCG/ACT INHALE TWO PUFFS BY MOUTH FOUR TIMES DAILY NEEDED 25 Active PredniSONE 20 mg 1 tablet 24h Active Methotrexate 2.5 MG Orally 1 time per week 6 Active Cymbalta 60 mg Orally Twice a day 1 capsule 12h 16 Aug, 2017 Active Victoza 18 mg/3ml 1.8 mg injection 24h Active Magnesium Oxide 400 mg Orally Once a day 1 tablet as needed 24h 30 day(s) Active Benzonatate 100 MG TAKE ONE CAPSULE BY MOUTH THREE TIMES DAILY NEEDED 10 Active Dulera 200-5 MCG/ACT Inhalation Twice a day 1 puff 12h Dec, Active Glucocard Expression Test - as directed 24h Nov, 50 Active Diflucan 150 MG Orally Once a day 1 tablet 24h Dec, 03 days Active Spironolactone 25 MG TAKE ONE TABLET BY MOUTH ONCE DAILY 30 Active Actos 30 MG TAKE ONE TABLET BY MOUTH ONCE DAILY 30 Active Furosemide 20 MG TAKE 1 TABLET BY MOUTH ONCE DAILY 30 Active Omeprazole Active Zanaflex 4 MG Orally Three times a day 1 tablet as needed 8h Dec, Active Bleph-10 10 % Ophthalmic every 6 hrs 1 drop into affected eye 6h Jan, Jan, 05 days Active Lisinopril-Hydrochlorothiazide 20-25 MG TAKE ONE TABLET BY MOUTH ONCE DAILY 30 Active [place] 7.5-325 MG Orally every 6 hrs 1 tablet as needed 6h Dec, 28 days Active Potassium Chloride Marie ER 20 MEQ TAKE ONE TABLET BY MOUTH ONCE DAILY WITH FOOD 30 Active Lasix Active Neurontin 300 MG Orally Three times a day 1 capsule 8h Nov, 30 day(s) Active Walker 1 as directed Dec, Active RESULTS No Results PROCEDURES No [...]
--- OUTSIDE RECORDS SUMMARY | 2018-05-09 23:25 | XMS REPORT ---
Author Author MACY TAMAYO [facility] Address [address] [place] [address] Care Team Providers Care Substance Abuse Technician Name Role Phone MACY TAMAYO Unavailable PROBLEMS Type Condition ICD9-CM Code AVZ45-JI Code Onset Dates Condition Status SNOMED Code Problem Controlled type 2 diabetes mellitus without complication, without long -term current use of insulin E11.9 Active 369114343 Problem Body mass index (BMI) of 45.0-49.9 in adult Z68.42 Active 058221162 Problem Tachycardia with heart rate 121-140 beats per minute R00.0 Active 0688039 Problem Facial droop R29.810 Active 16170806 Problem Menopause Z78.0 Active 382571139 Problem Gait disturbance R26.9 Active 06278818 Problem Dermatomyositis M33.90 Active 354928706 Problem Enlarged thyroid gland E04.9 Active 5831600 Problem Lumbago with sciatica, right side M54.41 Active 912513651 Problem Morbid (severe) obesity due to excess calories E66.01 Active 211354772 Problem Diabetes type 2, controlled E11.9 Active 22782596 Problem Osteoarthritis of right knee, unspecified osteoarthritis type M17.9 Active 086864375 Problem Allergic rhinitis due to pollen J30.1 Active 90754937 Problem Mood disorder F39 Active 13829120 Problem Arthritis M19.90 Active 2898579 Problem Plantar warts B07.0 Active 38078421 Problem Anxiety F41.9 Active 81615552 Problem Plantar wart of both feet B07.0 Active [id number] Problem Other chronic pain G89.29 Active 98024627 Problem Lumbago with sciatica, left side M54.42 Active 517015030 ALLERGIES No Information ENCOUNTERS Encounter Location Date Diagnosis [facility] [address] [facility] [id number] [address] Mar, [facility] [address] [facility] [id number] [place] [address] 85836- 8121 Feb, [facility] [id number] [place] [address] 54477- 5508 Feb, [facility] [id number] [place] [address] 88003- 3020 Feb, [facility] [id number] [place] [address] 63636- 0564 Jan, [facility] [address] 79818- 7991 27 Jan, 2018 BMI 45.0-49.9, adult Z68.42 and 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 [facility] [id number] [place] [address] 60875- 5989 25 Jan, 2018 [facility] [id number] [place] [address] 78133- 0807 24 Jan, 2018 [facility] [id number] [place] [address] 82462- 4821 Jan, [facility] [id number] [place] [address] 14705- 3071 Jan, 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 [facility] [id number] [place] [address] 35379- 8890 Jan, [facility] [id number] [place] [address] 75718- 4727 Jan, [facility] [id number] [place] [address] 34055- 2038 Jan, [facility] [id number] [place] [address] 06042- 6345 19 Jan, 2018 Allergic reaction to drug, initial encounter T78.40XA [facility] [id number] [place] [address] 51640- 9940 17 Jan, 2018 BMI 45.0-49.9, adult Z68.42 and Facial droop R29.810 [facility] [id number] [place] [address] 72160- 8362 14 Jan, 2018 Mood disorder F39 [facility] [id number] [place] [address] 88685- 9382 11 Jan, 2018 Dermatomyositis M33.90 and BMI 40.0-44.9, adult Z68.41 [facility] [place] [address] 28278- 5145 10 Jan, 2018 [facility] [id number] [place] [address] 62940- 0230 05 Jan, 2018 [facility] [address] 23634- 9923 04 Jan, 2018 Irritation of left eye H57.8 and BMI 40.0-44.9, adult Z68.41 [facility] [place] [address] 46134- 5629 Dec, Diabetes type 2, controlled E11.9 [facility] [id number] [place] [address] 51750- 0495 Dec, Acute right ankle pain M25.571 [facility] [id number] [place] [address] 97200- 1975 Dec, Other chronic pain G89.29 ; Diabetes type 2, controlled E11.9 ; Gait disturbance R26.9 ; Weakness R53.1 and Muscle spasm M62.838 [facility] [place] [id number] [place] [address] 84356- 6869 Dec, Acute non-recurrent maxillary sinusitis J01.00 [facility] [id number] [place] [address] 86377- 4775 Dec, [facility] [id number] [place] [address] 26571- 1980 Dec, [facility] [id number] [place] [address] 23866- 0762 Dec, Acute non-recurrent maxillary sinusitis J01.00 [facility] [id number] [place] [address] 19288- 0323 Dec, Lumbago with sciatica, right side M54.41 and Lupus erythematosus L93.0 [facility] [id number] [place] [address] 69488- 6376 Dec, Mood disorder F39 [facility] [id number] [place] [address] 82716- 5376 Dec, Mood disorder F39 [facility] [id number] [place] [address] 02772- 1972 Dec, [facility] [id number] [place] [address] 38811- 9903 Dec, Acute right ankle pain M25.571 [facility] [id number] [place] [address] 32639- 9845 Nov, Lumbar radiculopathy M54.16 [facility] [id number] [place] [address] 28488- 5136 Nov, [facility] [id number] [place] [address] 14660- 6859 Nov, Mood disorder F39 [facility] [id number] [place] [address] 38849- 1462 Nov, Lumbago with sciatica, right side M54.41 and Other chronic pain G89.29 [facility] [id number] [place] [address] 82870- 2119 Nov, Acute right ankle pain M25.571 [facility] [id number] [place] [address] 18111 2546 Nov, [facility] [address] [id number] [address]- 1815 Oct, [facility] [id number] [place] [address] 22531- 0252 Oct, Plantar wart of both feet B07.0 [facility] [id number] [place] [address] 04196- 1807 Oct, [place] [address] 18562- 6252 Oct, Acute right ankle pain M25.571 and Plantar wart of both feet B07.0 [facility] [place] [address] 85588- 0723 September, Other chronic pain G89.29 [facility] [address] 03984- 2091 September, Other chronic pain G89.29 [facility] [place] [address] 72416- 6795 September, Other chronic pain G89.29 [facility] [place] [address] 90774- 7765 Aug, Mood disorder F39 [place] [address] 40138- 4627 Aug, Other chronic pain G89.29 ; Controlled type 2 diabetes mellitus without complication, without long-term current use of insulin E11.9 ; Low back pain M54.5 and Tinea corporis B35.4 [facility] [place] [id number] [place] [address] 70239- 9449 Aug, Mood disorder F39 and Anxiety F41.9 [facility] [id number] [place] [address] 09730- 5392 Aug, Mood disorder F39 and Anxiety F41.9 [place] [address] 48268- 7606 Jul, [facility] [id number] [place] [address] 45457 -4543 Jul, Scabies B86 and BMI 45.0-49.9, adult Z68.42 [facility] [id number] [place] [address] 89840- 6518 Jul, [facility] [address] 18427- 4894 Jul, Mood disorder F39 and Anxiety F41.9 [place] [address] 40328- 9417 Jul, [facility] [id number] [place] [address] 11439 -2585 Jun, Bronchitis J40 ; Dark urine R82.99 and BMI 45.0-49.9, adult Z68.42 [place] [address] 32841- 5907 14 Jun, 2017 Acute pain of right shoulder M25.511 and Acute pain of right knee M25.561 [place] [address] 16656- 8968 May, BMI 40.0-44.9, adult Z68.41 ; Controlled type 2 diabetes mellitus without complication, without long-term current use of insulin E11.9 ; Muscle cramping R25.2 ; Hot flashes R23.2 ; Mood disorder F39 ; Anxiety F41.9 and Morbid (severe) obesity due to excess calories E66.01 [place] [id number] [place] [address] 29095- 7301 May, BMI 40.0-44.9, adult Z68.41 ; Controlled type 2 diabetes mellitus without complication, without long-term current use of insulin E11.9 ; Muscle cramping R25.2 and Hot flashes R23.2 [place] [address] 25286- 6038 May, Tachycardia with heart rate 121-140 beats per minute R00.0 ; Morbid (severe) obesity due to excess calories E66.01 ; Diabetes type 2, controlled E11.9 and Enlarged thyroid gland E04.9 [facility] [place] [id number] [place] [address] 32887- 1716 May, 2018 Encounter for well woman exam [...] Dysuria R30.0 and Screening breast examination Z12.31 [place] [address] 66433- 1048 Apr, Mood disorder F39 ; Other chronic pain G89.29 and Anxiety F41.9 [facility] [place] [address] 55540- 2006 Apr, Lumbago with sciatica, left side M54.42 and Other chronic pain G89.29 [place] [address] 64735- 8742 Apr, Lupus erythematosus L93.0 [place] [address] 92130- 6037 Mar, Plantar wart of both feet B07.0 [facility] [id number] [place] [address] 08122- 0161 Mar, Lupus erythematosus L93.0 and Sinus drainage J34.89 [place] [address] 43141- 8759 Mar, Mood disorder F39 ; Other chronic pain G89.29 and Anxiety F41.9 [place] [address] 87255- 7635 Mar, Mood disorder F39 ; Arthritis M19.90 and Plantar warts B07.0 [place] [address] 25876- 5899 Feb, Lupus erythematosus L93.0 [facility] [id number] [place] [address] 98023- 4403 Feb, Other chronic pain G89.29 [facility] [address] 85453- 7743 Feb, Mood disorder F39 and Anxiety F41.9 [facility] [id number] [place] [address] 99128- 6505 Jan, [facility] [address] 03691- 8095 Jan, Mood disorder F39 [place] [address] 10829- 3312 Dec, Nail, ingrown L60.0 [facility] [place] [id number] [place] [address] 63536- 4711 Dec, Nail, ingrown L60.0 [facility] [address] 63362- 3134 Nov, Mood disorder F39 and Anxiety F41.9 [place] [address] 92129- 3481 Nov, Sinus drainage J34.89 ; Hot flashes R23.2 ; Anxiety F41.9 and Diabetes type 2, controlled E11.9 [place] [id number] [place] [address] 24174- 8707 Nov, Nail, ingrown L60.0 [facility] [id number] [place] [address] 45824- 0256 Oct, Anxiety F41.9 and Mood disorder F39 [place] [address] 71881- 6619 Oct, Nail, ingrown L60.0 and Anxiety F41.9 [facility] [id number] [place] [address] 59584- 7645 Oct, Lupus erythematosus L93.0 [place] [address] [address]- 4517 September, [facility] [id number] [place] [address] 94441- 7881 September, [facility] [id number] [place] [address] 79941- 8042 September, Lupus erythematosus L93.0 [facility] [id number] [place] [address] 96368- 6517 Aug, [facility] [id number] [place] [address] 84268- 2502 Aug, Mood disorder F39 and Anxiety F41.9 [facility] [id number] [place] [address] 53992- 4778 Aug, Lupus erythematosus L93.0 ; Diabetes type 2, controlled E11.9 and Localized edema R60.0 [facility] [id number] [place] [address] 37912- 9484 Aug, [facility] [id number] [place] [address] 00403- 8131 Jul, Anxiety F41.9 and Mood disorder F39 [facility] [id number] [place] [address] 44737- 3707 Jul, Diabetes type 2, controlled E11.9 [facility] [id number] [place] [address] 14759- 2707 Jun, Anxiety F41.9 [facility] [address] [address]- 9450 May, [facility] [id number] [place] [address] 27422- 6845 May, [facility] [address] [address]- 8824 May, Nausea R11.0 ; Other chronic pain G89.29 and Pain in right knee M25.561 [place] [id number] [place] [address] 61362- 8772 May, [facility] [id number] [place] [address] 12353- 5235 Apr, Tear of medial meniscus of right knee, current, unspecified tear type, subsequent encounter S83.241D and Tear of lateral meniscus of right knee, current, unspecified tear type, subsequent encounter S83.281D [facility] [id number] [place] [address] 60802- 7592 Apr, Anxiety F41.9 and Mood disorder F39 [facility] [id number] [place] [address] 80080- 9458 Apr, Anxiety F41.9 [place] [id number] [place] [address] 37332- 8058 Apr, [place] [id number] [place] [address] 73229- 0030 Mar, [place] [id number] [place] [address] 60349- 2287 Mar, Lupus erythematosus L93.0 and Diabetes type 2, controlled E11.9 [place] [id number] [place] [address] 48102- 5649 Mar, Mood disorder F39 [place] [id number] [place] [address] 34568- 7194 Mar, Tear of lateral meniscus of right knee, current, unspecified tear type, initial encounter S83.281A and Osteoarthritis of right knee, unspecified osteoarthritis type M17.9 [place] [id number] [place] [address] 77452- 3150 Mar, [facility] [id number] [place] [address] 09282- 5609 Feb, Mood disorder F39 [facility] [id number] [place] [address] 23374- 5693 Feb, Rash R21 [facility] [address] [address]- 8821 Feb, [facility] [id number] [place] [address] 03258- 8657 Jan, Other chronic pain G89.29 and Muscle spasm M62.838 [facility] [id number] [place] [address] 90801- 5859 Jan, Mood disorder F39 [facility] [id number] [place] [address] 72115- 0567 Jan, Pain in right knee M25.561 ; Other chronic pain G89.29 and Muscle spasm M62.838 [facility] [id number] [place] [address] 72141- 0051 Dec, [facility] [id number] [place] [address] 23983- 0685 Dec, [facility] [id number] [place] [address] 85598- 3936 Nov, [facility] [id number] [place] [address] 42136- 7386 Nov, Mood disorder F39 [facility] [id number] [place] [address] 78913- 2307 Nov, Diabetes type 2, controlled E11.9 ; Bronchitis J40 ; Edema, unspecified type R60.9 ; Weight gain R63.5 and Right knee pain, unspecified chronicity M25.561 [facility] [id number] [place] [address] 97822- 8688 Oct, Mood disorder F39 [facility] [id number] [place] [address] 03550- 7346 Oct, Lupus erythematosus L93.0 and Bilateral edema of lower extremity R60.0 [facility] [id number] [place] [address] 84254- 8473 Oct, Mood disorder F39 and Anxiety F41.9 [facility] [id number] [place] [address] 64003- 2502 September, Mood disorder F39 ; Anxiety F41.9 and Anger reaction R45.4 [facility] [id number] [place] [address] 64096- 8816 September, Diabetes type 2, controlled E11.9 ; Edema, unspecified type R60.9 and Fatigue, unspecified type R53.83 [facility] [id number] [place] [address] 77557- 9190 Aug, Mood disorder F39 and Generalized anxiety disorder F41.1 [place] [address] 90152- 0176 Aug, Diabetes type 2, controlled E11.9 ; Sinusitis J32.9 and Mood disorder F39 [place] [address] 28506- 4312 Aug, Lupus erythematosus L93.0 [facility] [id number] [place] [address] 81443- 1088 Aug, [facility] [address] 62678- 4423 Aug, [facility] [id number] [place] [address] 95640- 7389 Jul, Diabetes type 2, controlled E11.9 [facility] [id number] [place] [address] 07629- 1154 Jul, Mood disorder F39 and Depression F32.9 [facility] [id number] [place] [address] 96629- 6512 Jul, Lupus erythematosus L93.0 and Diabetes type 2, controlled E11.9 [facility] [id number] [place] [address] 30224- 7954 Jul, Mood disorder F39 and Anxiety F41.9 [facility] [id number] [place] [address] [place] [address]- 5600 Jul, [facility] [address] [address]- 0860 Jul, [facility] [id number] [place] [address] 55488- 6221 Jun, Mood disorder F39 and Anxiety F41.9 [facility] [id number] [place] [address] 69785- 6715 Jun, Mood disorder F39 [facility] [id number] [place] [address] 00867- 4817 Jun, [facility] [id number] [place] [address] 81002- 6243 Jun, [facility] [id number] [place] [address] 14889- 5416 Jun, Mood disorder F39 [facility] [id number] [place] [address] 01927- 8141 Jun, [facility] [id number] [place] [address] 18063- 4950 May, [facility] [id number] [address]- 1665 May, [facility] [id number] [address]- 5304 May, [facility] [id number] [address]- 7585 May, [facility] [id number] [address]- 3827 May, Anxiety F41.9 ; Dermatomyositis M33.90 and Diabetes type 2, controlled E11.9 [facility] [address], [place] [address] -8321 May, Sinusitis J32.9 and Cough R05 [facility] [id number] [address]- 0178 May, Mood disorder F39 [facility] [id number] [place] [address] 35166- 0796 May, Adjustment disorder with mixed anxiety and depressed mood F43.23 [facility] [id number] [place] [address] 56628- 8508 Apr, [facility] [id number] [place] [address] 04926- 3652 Apr, [facility] [id number] [place] [address] 73592- 8976 Apr, Generalized anxiety disorder F41.1 and Mood disorder F39 [facility] [id number] [place] [address] 69362- 5761 Mar, [facility] [id number] [place] [address] 07616- 4339 Mar, [facility] [id number] [place] [address] 49644- 5296 Mar, [facility] [id number] [place] [address] 24205- 7885 Mar, Mood disorder F39 [facility] [id number] [place] [address] 60285- 7925 Feb, [facility] [id number] [place] [address] 51250- 3635 Feb, Diabetes E11.9 and Bronchitis J40 [facility] [id number] [place] [address] 11575- 6008 Feb, [facility] [id number] [place] [address] 58780- 5898 Feb, [facility] [id number] [place] [address] 65669- 8258 Feb, Major depression, recurrent, full remission F33.42 and KELLY ( generalized anxiety disorder) F41.1 [address] [place] [id number] [place] [address] 05749- 4354 Feb, [facility] [id number] [place] [address] 53510- 9344 Feb, Single major depressive episode, in partial or unspecified remission F32.5 [place] [id number] [place] [address] 03095- 9018 Jan, Fatigue 780.79 [place] [id number] [place] [address] 42723- 6929 Jan, [address] [id number] [place] [address] 80383- 3790 Jan, Diabetes with other specified manifestations, type II or unspecified type, not stated as uncontrolled 250.[address] [id number] [place] [address] 52376- 7829 Jan, [place] [id number] [place] [address] 60306- 3852 Dec, Hot flashes 627.2 ; Memory loss 780.93 and Joint pain 719.40 [address] [id number] [place] [address] 39244- 9801 Dec, Major depression, recurrent 296.30 ; Generalized anxiety disorder 300.02 ; Adjustment disorder with depressed mood 309.0 and No condition on [place] II V71.09 [place] [id number] [place] [address] 94235- 7728 Dec, [place] [id number] [place] [address] 52860- 3947 Nov, Cognitive and neurobehavioral dysfunction 294.9 ; Major depressive disorder, recurrent episode, moderate degree 296.32 and Anxiety state , unspecified 300.00 [place] [id number] [place] [address] 14893- 8361 Nov, [place] [id number] [place] [address] 28861- 2998 Nov, Bronchitis 490 and Diabetes with other specified manifestations, type II or unspecified type, not stated as uncontrolled 250.80 [place] [address] [address] 9490 Nov, Major depressive disorder, recurrent episode, moderate 296.32 and Anxiety disorder, unspecified 300.00 [place] [address] [place] [id number] [place] [address] 95797- 0207 Nov, Anxiety, generalized 300.02 ; Intermittent explosive disorder 312.34 ; No condition on [place] II V71.09 and No condition on axis III V71.09 [place] [id number] [place] [address] 36351- 3693 Oct, Diabetes with other specified manifestations, type II or unspecified type, not stated as uncontrolled 250.80 ; Urinary tract infection, site not specified 599.0 and Bronchitis 490 [place] [address] [place] [id number] [place] [address] 73787- 9384 Oct, Intermittent explosive disorder 312.34 ; Bipolar 1 disorder , depressed, moderate 296.52 ; Major depression, chronic 296.20 ; No condition on [place] II V71.09 and No condition on axis III V71.09 [place] [id number] [place] [address] 73033- 9065 Oct, Major depressive disorder, recurrent episode, moderate 296.32 ; Anxiety state 300.00 ; Cognitive decline 294.9 and No condition on [place] II V71.09 [place] [address], [place] [address]- 4946 Oct, [place] [id number] [place] [address] 61632- 8222 Oct, Major depressive disorder, recurrent episode, moderate 296.32 ; Anxiety disorder, unspecified 300.00 and Persistent disorder of initiating or maintaining sleep 307.42 [place] [address] [address] 2448 September, Diabetes with other specified manifestations, type II or unspecified type, not stated as uncontrolled 250.80 ; Memory loss 780.93 and Cognitive complaints 799.59 [facility] [address] [address] 66[address] September, No condition on [place] II V71.09 ; Major depression, recurrent 296.30 and Persistent mood [affective] disorder, unspecified 296.90 [facility] [address] 2797 Aug, [facility] [address] [place] [id number] [place] [address] 055673- 8736 Aug, [facility] [address], [place] [address]- 5720 Aug, [facility] [address] [place] [address] [id number] [place] [address] 895864- 0929 Jul, [facility] [id number] 2326 Jul, [facility] [id number] [address]- 2451 Jul, [facility] [address], [place] [address]- 4802 Jul, [facility] [address] 2169 Jul, [facility] [address], [place] [address]- 3855 Jun, [facility] [address], [place] [address]- 6339 Jun, [facility] [address] 0450 Jun, [facility] [address], [place] [address]- 9436 Jun, [facility] [address] 5711 Jun, [facility] [place] [facility] [address] [id number] [place] [address]- 3881 Jun, 2014 [facility] [place] [facility] [address] [id number] [place] [address]- 2514 Jun, 2014 [facility] [place] [facility] [address] [id number] [place] [address]- 1249 Jun, 2014 [facility] [place] [facility] [address] [id number] [place] [address]- 5200 Jun, 2014 [facility] [place] [facility] [address] [id number] [place] [address]- 6900 Jun, 2014 [facility] [place] [facility] [address] [id number] [place] [address]- 3254 Jun, 2014 [facility] [place] [facility] [address] [facility] [id number] [place] [address]- 1002 Jun, 2014 [facility] [place] [facility] [address] [facility] [id number] [place] [address]- 1230 Jun, 2014 [facility] [place] [facility] [address] [facility] [id number] [place] [address]- 9232 May, [facility] [place] [facility] [address] [facility] [id number] [place] [address]- 6747 May, [facility] [place] [facility] [address] [facility] [id number] [place] [address]- 5288 Apr, [facility] [place] [facility] [address] [id number] [place] [address]- 1907 Apr, [facility] [place] [facility] [address] [id number] [place] [address]- 4439 Apr, [facility] [place] [facility] [address] [id number] [place] [address]- 6937 Apr, [facility] [place] [facility] [address] [facility] [id number] [place] [address]- 2275 Apr, [facility] [place] [facility] [address] [id number] [place] [address]- 0689 Apr, [facility] [place] [facility] [address] [id number] [place] [address]- 3056 Apr, [facility] [place] [facility] [address] [id number] [place] [address]- 8696 Apr, [facility] [place] [facility] [address] [id number] [place] [address]- 9896 15 Apr, 2014 [facility] [place] [facility] [address] [id number] [place] [address]- 0146 15 Apr, 2014 [facility] [place] [facility] [address] [id number] [place] [address]- 0432 Apr, [facility] [place] [facility] [address] [id number] [place] [address]- 6527 Apr, [facility] [place] [facility] [address] [id number] [place] [address]- 5750 Apr, [facility] [place] [facility] [address] [id number] [place] [address]- 4514 Apr, [facility] [place] [facility] [address] [id number] [place] [address]- 0470 Apr, [facility] [place] [facility] [address] [id number] [place] [address]- 5407 Apr, [facility] [place] [facility] [address] [id number] [place] [address]- 4661 Apr, [facility] [place] [facility] [address] [id number] [place] [address]- 9054 Apr, [facility] [place] [facility] [address] [id number] [place] Apr, [facility] [place] [facility] [address] [id number] [place] [address]- 6167 Apr, [facility] [place] [facility] [address] [id number] [place] [address]- 8208 Mar, [facility] [place] [facility] [address] [id number] [place] [address]- 0652 Mar, [facility] [place] [facility] [address] [id number] [place] [address]- 1984 Mar, [facility] [place] [facility] [address] [id number] [place] [address]- 4396 Mar, [facility] [place] [facility] [address] [id number] [place] [address]- 7520 Mar, [facility] [place] [facility] [address] [id number] [place] [address]- 6422 Mar, [facility] [place] [facility] [address] [id number] [place] [address]- 2063 Mar, [facility] [place] [facility] [address] [id number] [place] [address]- 5966 Mar, [facility] [place] [facility] [address] [id number] [place] [address]- 1672 Mar, [facility] [place] [facility] [address] [id number] [place] [address]- 1694 Mar, [facility] [place] [facility] [address] [id number] [place] [address]- 7498 Mar, [facility] [place] [facility] [address] [id number] [place] [address]- 3816 Mar, [facility] [place] [facility] [address] [id number] [place] [address]- 3069 Mar, [facility] [place] [facility] [address] [id number] [place] [address]- 8574 Feb, [facility] [place] [facility] [address] [id number] [place] [address]- 6043 Feb, [facility] [place] [facility] [address] [id number] [place] [address]- 9912 30 Feb, 2014 [facility] [place] [facility] [address] [id number] [address]- 5433 Feb, [facility] [place] [facility] [address] [id number] [place] [address]- 6841 Feb, [facility] [place] [facility] [address] [id number] [place] [address]- 9481 Feb, [facility] [place] [facility] [address] [id number] [place] [address]- 6065 Feb, [facility] [place] [facility] [address] [id number] [place] [address]- 0053 Feb, [facility] [place] [facility] [address] [id number] [place] [address]- 3807 Feb, [facility] [place] [facility] [address] [id number] [place] [address]- 9925 Feb, [facility] [place] [facility] [address] [id number] [place] [address]- 7164 Feb, [facility] [place] [facility] [address] [id number] [place] [address]- 6429 Feb, [facility] [place] [facility] [address] [id number] [place] [address]- 1576 10 Feb, 2014 [facility] [place] [facility] [address] [id number] [place] [address]- 4578 Feb, [facility] [place] [facility] [address] [id number], [place] [address]- 1587 07 Feb, 2014 [facility] [place] [facility] [address] [id number], [place] [address]- 5232 10 Jan, 2013 [facility] [place] [facility] [address] [id number] [place] [address]- 2916 08 Jan, 2013 [facility] [place] [facility] [address] [id number] [place] [address]- 1125 08 Jan, 2013 [facility] [place] [facility] [address] [id number] [place] [address]- 6953 08 Jan, 2013 [facility] [place] [facility] [address] [id number] [place] [address]- 3796 Jan, [facility] [place] [facility] [address] [id number] [place] [address]- 4808 Dec, [facility] [place] [facility] [address] [id number] [place] [address]- 3711 Dec, [facility] [place] [facility] [address] [id number] [place] [address]- 8320 Dec, [facility] [place] [facility] [address] [id number] [place] [address]- 7502 Dec, [facility] [place] [facility] [address] [id number] [place] [address]- 8013 Nov, [facility] [place] [facility] [address] [id number] [place] [address]- 5178 Nov, [facility] [place] [facility] [address] [id number] [place] [address]- 1030 Nov, [facility] [place] [facility] [address] [id number] [place] [address]- 8558 Nov, [facility] [place] [facility] [address] [id number] [place] [address]- 2939 Nov, [facility] [place] [facility] [address] [id number] [place] [address]- 3136 Nov, [facility] [place] [facility] [address] [id number] [place] [address]- 1883 Nov, [facility] [place] [facility] [address] [id number] [place] [address]- 4935 Nov, [facility] [place] [facility] [address] [id number] [place] [address]- 5343 Nov, [facility] [place] [facility] [address] [id number] [place] [address]- 6499 Nov, [facility] [place] [facility] [address] [id number] [place] [address]- 3049 Oct, [facility] [place] [facility] [address] [id number] [place] [address]- 1090 Oct, [facility] [place] [facility] [address] [id number] [place] [address]- 5618 September, [facility] [place] [facility] [address] [id number] [place] [address]- 1836 September, [facility] [place] [facility] [address] [id number] [place] [address]- 6516 September, [facility] [place] [facility] [address] [id number] [place] [address]- 6217 September, [facility] [place] [facility] [address] [id number] [place] [address]- 7520 Aug, [facility] [place] [facility] [address] [id number] [place] [address]- 6178 Aug, [facility] [place] [facility] [address] [id number] [place] [address]- 1615 Aug, [facility] [place] [facility] [address] [id number] [place] [address]- 7518 Jul, [facility] [place] [facility] [address] [id number] [place] [address]- 5356 24 Jul, 2013 [facility] [place] [facility] [address] [id number] [place] [address]- 6248 Jul, [facility] [place] [facility] [address] [id number] [place] [address]- 6336 Jul, [facility] [place] [facility] [address] [id number] [place] [address]- 3033 May, [facility] [place] [facility] [address] [id number] [place] [address]- 9246 May, [facility] [place] [facility] [address] [id number] [place] [address]- 0053 May, [facility] [place] [facility] [address] [id number], [place] [address]- 6480 15 Mar, 2013 [facility] [place] [facility] [address] [id number] [place] [address]- 5064 15 Mar, 2013 [facility] [place] [facility] [address] [id number] [place] [address]- 7661 Mar, [facility] [place] [facility] [address] [id number] [place] [address]- 5183 Mar, [facility] [place] [facility] [address] [id number] [place] [address]- 4800 16 Feb, 2013 [facility] [place] [facility] [address] [id number] [place] [address]- 3225 Feb, [facility] [place] [facility] [address] [id number] [place] [address]- 0973 Feb, [facility] [place] [facility] [address] [id number] [place] [address]- 8637 16 Jan, 2013 [facility] [place] [facility] [address] [id number] [place] [address]- 3886 Jan, [facility] [place] [facility] [address] [id number] [place] [address]- 4124 Jan, [facility] [place] [facility] [address] [id number] [place] [address]- 2787 Dec, [facility] [place] [facility] [address] [id number] [place] [address]- 4602 Dec, [facility] [place] [facility] [address] [id number] [place] [address]- 6326 Dec, [facility] [place] [facility] [address] [id number] [place] [address]- 0768 Dec, [facility] [place] [facility] [address] [id number] [place] [address]- 1497 Nov, [facility] [place] [facility] [address] [id number] [place] [address]- 7065 Oct, [facility] [place] [facility] [address] [id number] [place] [address]- 9473 05 Oct, 2012 [facility] [address] [id number] [place] [address]- 1793 September, [facility] [place] [facility] [address] [id number] [place] [address]- 8106 September, [facility] [address] [id number] [place] [address]- 5620 September, [facility] [address] [id number] [place] [address]- 9653 Aug, [facility] [address] [id number] [place] [address]- 6970 Aug, [facility] [address] [id number] [place] [address]- 2644 Aug, [facility] [address] [id number] [place] [address]- 4631 Aug, [facility] [address] [id number] [place] [address]- 1750 26 Jul, 2012 [facility] [address] [id number] [place] [address]- 4136 25 Jul, 2012 [facility] [address] [id number] [place] [address]- 0583 21 Jul, 2012 [facility] [address] [id number] [place] [address]- 0149 15 Jul, 2012 [facility] [address] [id number] [place] [address]- 4164 14 Jul, 2012 [facility] [place] [facility] [address] [id number] [place] [address]- 1638 13 Jul, 2012 [facility] [place] [facility] [address] [id number] [place] [address]- 5999 13 Jul, 2012 [facility] [place] [facility] [address] [id number] [place] [address]- 5783 Jun, [facility] [place] [facility] [address] [id number] [place] [address]- 3126 Jun, [facility] [place] [facility] [address] [id number] [place] [address]- 5245 Jun, [facility] [place] [facility] [address] [facility] [id number] [place] [address]- 9484 Jun, [facility] [place] [facility] [address] [id number] [place] [address]- 2387 May, [facility] [place] [facility] [address] [id number] [place] [address]- 6810 May, [facility] [place] [facility] [address] [id number] [place] [address]- 4452 May, [facility] [place] [facility] [address] [id number] [place] [address]- 5638 May, [facility] [place] [facility] [address] [id number] [place] [address]- 6000 May, [facility] [place] [facility] [address] [id number] [place] [address]- 4794 Apr, [facility] [place] [facility] [address] [id number] [place] [address]- 4985 Apr, [facility] [place] [facility] [address] [id number] [place] [address]- 0815 Mar, [facility] [place] [facility] [address] [id number] [place] [address]- 5712 Mar, [facility] [place] [facility] [address] [id number] [place] [address]- 3644 Mar, [facility] [place] [facility] [address] [id number] [place] [address]- 5873 Mar, [facility] [place] [facility] [address] [facility] [id number] [place] [address]- 4693 Mar, [facility] [place] [facility] [address] [id number] [place] [address]- 7970 Mar, [facility] [place] [facility] [address] [id number] [place] [address]- 4735 Mar, [facility] [place] [facility] [address] [id number] [place] [address]- 3910 Mar, [facility] [place] [facility] [address] [id number] [place] [address]- 0383 Mar, [facility] [place] [facility] [address] [id number] [place] [address]- 5645 Mar, [facility] [place] [facility] [address] [id number] [place] [address]- 3860 Feb, [facility] [place] [facility] [address] [id number] [place] [address]- 5035 Feb, [facility] [place] [facility] [address] [id number] [place] [address]- 1225 Feb, [facility] [place] [facility] [address] [id number] [place] [address]- 1923 Feb, [facility] [place] [facility] [address] [id number] [place] [address]- 2979 Feb, [facility] [place] [facility] [address] [id number] [place] [address]- 3877 Feb, [facility] [place] [facility] [address] [id number] [place] [address]- 7032 Feb, [facility] [place] [facility] [address] [id number] [place] [address]- 8900 Jan, [facility] [place] [facility] [address] [id number] [place] [address]- 3289 Jan, [facility] [place] [facility] [address] [id number] [place] [address]- 0342 Dec, [facility] [place] [facility] [address] [id number] [place] [address]- 0263 Dec, [facility] [place] [facility] [address] [id number] [place] [address]- 3686 Dec, [facility] [place] [facility] [address] [id number] [place] [address]- 8866 Dec, [facility] [place] [facility] [address] [id number] [place] [address]- 3723 Dec, [facility] [place] [facility] [address] [id number] [place] [address]- 1589 Dec, [facility] [place] [facility] [address] [id number] [place] [address]- 1676 Nov, [facility] [place] [facility] [address] [id number] [place] [address] Nov, [facility] [place] [facility] [address] [id number] [place] [address] Nov, [facility] [place] [facility] [address] [id number] [place] [address] Nov, [facility] [place] [facility] [address] [id number] [place] [address] September, [facility] [place] [facility] [address] [id number] [place] [address] September, [facility] [place] [facility] [address] [id number] [place] [address] September, [facility] [place] [facility] [address] [id number] [place] [address] Jul, [facility] [place] [facility] [address] [id number] [place] [address] Jun, [facility] [place] [facility] [address] [id number] [place] [address] Jun, [facility] [place] [facility] [address] [id number] [place] [address] Jun, [facility] [place] [facility] [address] [id number] [address] 14 Apr, 2011 [facility] [id number] [address] 28 Mar, 2011 [facility] [id number], [place] [address] 15 Mar, 2011 [facility] [id number], [place] [address] Feb, [facility] [id number] [place] [address] Feb, [facility] [id number] [place] [address] Feb, [facility] [id number] [address] Jul, [facility] [id number] [address] 20 Feb, 2008 IMMUNIZATIONS No Known Immunizations [...]
--- OUTSIDE RECORDS SUMMARY | 2018-05-09 23:26 | XMS REPORT ---
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 Engineer Name Role Phone MACY TAMAYO Unavailable PROBLEMS Type Condition ICD9-CM Code KPX24-SL Code Onset Dates Condition Status SNOMED Code Problem Controlled type 2 diabetes mellitus without complication, without long -term current use of insulin E11.9 Active 757053063 Problem Body mass index (BMI) of 45.0-49.9 in adult Z68.42 Active 481088480 Problem Tachycardia with heart rate 121-140 beats per minute R00.0 Active 2589663 Problem Facial droop R29.810 Active 51845617 Problem Menopause Z78.0 Active 039437510 Problem Gait disturbance R26.9 Active 28016385 Problem Dermatomyositis M33.90 Active 819515900 Problem Enlarged thyroid gland E04.9 Active 2392610 Problem Lumbago with sciatica, right side M54.41 Active 541938959 Problem Morbid (severe) obesity due to excess calories E66.01 Active 325641087 Problem Diabetes type 2, controlled E11.9 Active 44783414 Problem Osteoarthritis of right knee, unspecified osteoarthritis type M17.9 Active 130331673 Problem Allergic rhinitis due to pollen J30.1 Active 04612807 Problem Mood disorder F39 Active 98714686 Problem Arthritis M19.90 Active 6401093 Problem Plantar warts B07.0 Active 70551106 Problem Anxiety F41.9 Active 96596716 Problem Plantar wart of both feet B07.0 Active [id number] Problem Other chronic pain G89.29 Active 88596020 Problem Lumbago with sciatica, left side M54.42 Active 360265286 ALLERGIES Substance Reaction Event Type Date Status Fluarix Quadrivalent vomiting Drug Allergy Dec, Active Zoloft makes very angry Drug Allergy Dec, Active Fluarix vomiting Drug Allergy Dec, Active Aspirin rash Drug Allergy Dec, Active Latex, Natural Rubber rash Non Drug Allergy Dec, Active ENCOUNTERS Encounter Location Date Diagnosis [facility] [id number] [place] [address] 68361- 5890 Mar, [facility] [id number] [place] [address] 11608- 2911 Feb, [facility] [address] 66604- 4055 Feb, [facility] [address] 77346- 5754 Feb, [facility] [address] 98941- 6370 Jan, [facility] [address] 29214- 6558 Jan, BMI 45.0-49.9, adult Z68.42 and 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 [facility] [id number] [place] [address] 24545- 5190 Jan, [facility] [id number] [place] [address] 44768- 1514 Jan, [facility] [id number] [place] [address] 31719- 5188 Jan, [facility] [id number] [place] [address] 11811- 7051 Jan, 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810 [place] [address] 31357- 1887 14 Jan, 2018 Mood disorder F39 [place] [address] 27645- 6972 11 Jan, 2018 Dermatomyositis M33.90 and BMI 40.0-44.9, adult Z68.41 [place] [address] 80449- 8896 10 Jan, 2018 [place] [address] 32530- 9560 05 Jan, 2018 [place] [address] 88289- 3448 04 Jan, 2018 Irritation of left eye H57.8 and BMI 40.0-44.9, adult Z68.41 [place] [address] 14236- 5234 Dec, Diabetes type 2, controlled E11.9 [place] [address] 69358- 2917 Dec, Acute right ankle pain M25.571 [place] [address] 90655- 2435 Dec, Other chronic pain G89.29 ; Diabetes type 2, controlled E11.9 ; Gait disturbance R26.9 ; Weakness R53.1 and Muscle spasm M62.838 [place] [address] 08373- 1294 Dec, Acute non-recurrent maxillary sinusitis J01.00 [place] [address] 83077- 5923 Dec, [place] [id number] [place] [address] 44280- 4059 Dec, [facility] [id number] [place] [address] 46267- 3328 Dec, Acute non-recurrent maxillary sinusitis J01.00 [facility] [id number] [place] [address] 53750- 2786 Dec, Lumbago with sciatica, right side M54.41 and Lupus erythematosus L93.0 [facility] [id number] [place] [address] 24863- 6173 Dec, Mood disorder F39 [facility] [id number] [place] [address] 80630- 5993 Dec, Mood disorder F39 [facility] [id number] [place] [address] 92444- 4327 Dec, [facility] [id number] [place] [address] 58466- 8937 Dec, Acute right ankle pain M25.571 [facility] [id number] [place] [address] 59303- 1160 Nov, Lumbar radiculopathy M54.16 [facility] [id number] [place] [address] 20439- 5438 Nov, [facility] [id number] [place] [address] 24401- 1369 Nov, Mood disorder F39 [facility] [id number] [place] [address] 87465- 3594 Nov, Lumbago with sciatica, right side M54.41 and Other chronic pain G89.29 [facility] [id number] [place] [address] 44045- 4276 Nov, Acute right ankle pain M25.571 [facility] [id number] [place] [address] 32393- 4643 Nov, [facility] [address] [place] [address] 14138- 5310 Oct, [facility] [id number] [place] [address] 81858- 7647 Oct, Plantar wart of both feet B07.0 [facility] [id number] [place] [address] 16231- 3656 Oct, [facility] [id number] [place] [address] 98245- 4877 Oct, Acute right ankle pain M25.571 and Plantar wart of both feet B07.0 [place] [id number] [place] [address] 42019- 4018 September, Other chronic pain G89.29 [place] [id number] [place] [address] 19387- 3567 September, Other chronic pain G89.29 [place] [id number] [place] [address] 08426- 5205 September, Other chronic pain G89.29 [place] [id number] [place] [address] 23391- 6810 Aug, Mood disorder F39 [place] [id number] [place] [address] 90706- 9951 Aug, Other chronic pain G89.29 ; Controlled type 2 diabetes mellitus without complication, without long-term current use of insulin E11.9 ; Low back pain M54.5 and Tinea corporis B35.4 [place] [id number] [place] [address] 10015- 2676 Aug, Mood disorder F39 and Anxiety F41.9 [place] [id number] [place] [address] 69584- 7116 Aug, Mood disorder F39 and Anxiety F41.9 [facility] [id number] [place] [address] 85039- 4191 Jul, [facility] [id number] [place] [address] 37435 -2322 13 Jul, 2017 Scabies B86 and BMI 45.0-49.9, adult Z68.42 [place] [address] 69066- 3057 Jul, [place] [address] 02810- 4236 Jul, Mood disorder F39 and Anxiety F41.9 [place] [address] 94850- 6166 Jul, [facility] [address] 31752 -7138 27 Jun, 2017 Bronchitis J40 ; Dark urine R82.99 and BMI 45.0-49.9, adult Z68.42 [place] [address] 63524- 0865 14 Jun, 2017 Acute pain of right shoulder M25.511 and Acute pain of right knee M25.561 [place] [address] 27754- 9438 May, BMI 40.0-44.9, adult Z68.41 ; Controlled type 2 diabetes mellitus without complication, without long-term current use of insulin E11.9 ; Muscle cramping R25.2 ; Hot flashes R23.2 ; Mood disorder F39 ; Anxiety F41.9 and Morbid (severe) obesity due to excess calories E66.01 [place] [id number] [place] [address] 12855- 1653 May, BMI 40.0-44.9, adult Z68.41 ; Controlled type 2 diabetes mellitus without complication, without long-term current use of insulin E11.9 ; Muscle cramping R25.2 and Hot flashes R23.2 [place] [address] 10918- 9927 May, Tachycardia with heart rate 121-140 beats per minute R00.0 ; Morbid (severe) obesity due to excess calories E66.01 ; Diabetes type 2, controlled E11.9 and Enlarged thyroid gland E04.9 [place] [address] [place] [address] 18627- 4383 May, Encounter for well woman exam with [...] Dysuria R30.0 and Screening breast examination Z12.[address] 87526- 2501 Apr, Mood disorder F39 ; Other chronic pain G89.29 and Anxiety F41.[address] 71377- 0121 Apr, Lumbago with sciatica, left side M54.42 and Other chronic pain G89.29 [place] [id number] [place] [address] 00060- 1758 Apr, Lupus erythematosus L93.0 [place] [address] 08852- 1500 Mar, Plantar wart of both feet B07.[address] 75897- 3853 Mar, Lupus erythematosus L93.0 and Sinus drainage J34.89 [place] [id number] [place] [address] 74519- 2811 Mar, Mood disorder F39 ; Other chronic pain G89.29 and Anxiety F41.[address] 75461- 5566 Mar, Mood disorder F39 ; Arthritis M19.90 and Plantar warts B07.0 [facility] [address] 55902- 9246 Feb, Lupus erythematosus L93.0 [facility] [address] 68908- 4866 Feb, Other chronic pain G89.29 [facility] [address] 43909- 7811 Feb, Mood disorder F39 and Anxiety F41.9 [facility] [address] 52869- 9021 Jan, [place] [address] 66654- 3048 Jan, Mood disorder F39 [facility] [address] 94223- 6830 Dec, Nail, ingrown L60.0 [facility] [address] 77553- 0773 Dec, Nail, ingrown L60.0 [facility] [address] 72723- 3978 Nov, Mood disorder F39 and Anxiety F41.9 [facility] [id number] [place] [address] 20064- 2840 Nov, Sinus drainage J34.89 ; Hot flashes R23.2 ; Anxiety F41.9 and Diabetes type 2, controlled E11.9 [facility] [id number] [place] [address] 67098- 2609 Nov, Nail, ingrown L60.0 [facility] [id number] [place] [address] 75532- 3695 Oct, Anxiety F41.9 and Mood disorder F39 [facility] [address] 65939- 7441 Oct, Nail, ingrown L60.0 and Anxiety F41.9 [facility] [id number] [place] [address] 30547- 1629 Oct, Lupus erythematosus L93.0 [facility] [id number] [place] [address] 91321- 1581 September, [facility] [id number] [place] [address] 53272- 0714 September, [facility] [id number] [place] [address] 14941- 3522 September, Lupus erythematosus L93.0 [facility] [id number] [place] [address] 34143- 1117 Aug, [facility] [id number] [place] [address] 97182- 1979 Aug, Mood disorder F39 and Anxiety F41.9 [facility] [id number] [place] [address] 18094- 7561 Aug, Lupus erythematosus L93.0 ; Diabetes type 2, controlled E11.9 and Localized edema R60.0 [facility] [id number] [place] [address] 72335- 6925 Aug, [facility] [id number] [place] [address] 77413- 3102 Jul, Anxiety F41.9 and Mood disorder F39 [facility] [id number] [place] [address] 17310- 8897 Jul, Diabetes type 2, controlled E11.9 [facility] [id number] [place] [address] 29512- 3381 Jun, Anxiety F41.9 [facility] [id number] [place] [address] 91645- 0400 May, [facility] [id number] [place] [address] 73917- 8635 May, [facility] [id number] [place] [address] 01817- 8921 May, Nausea R11.0 ; Other chronic pain G89.29 and Pain in right knee M25.561 [facility] [id number] [place] [address] 68264- 4353 May, [place] [address]- 8579 Apr, Tear of medial meniscus of right knee, current, unspecified tear type, subsequent encounter S83.241D and Tear of lateral meniscus of right knee, current, unspecified tear type, subsequent encounter S83.281D [place] [address] 84285- 0870 Apr, Anxiety F41.9 and Mood disorder F39 [place] [address] 95016- 9119 Apr, Anxiety F41.9 [place] [address] 23175- 9993 Apr, [place] [address] 76791- 7421 Mar, [place] [id number] [place] [address] 23329- 4852 Mar, Lupus erythematosus L93.0 and Diabetes type 2, controlled E11.9 [place] [id number] [place] [address] 51135- 1060 Mar, Mood disorder F39 [place] [id number] [place] [address] 45371- 3222 Mar, Tear of lateral meniscus of right knee, current, unspecified tear type, initial encounter S83.281A and Osteoarthritis of right knee, unspecified osteoarthritis type M17.9 [facility] [id number] [place] [address] 57624- 3396 02 Mar, 2016 [place] [address] [address]- 2517 Feb, Mood disorder F39 [facility] [id number] [place] [address] 06382- 1997 Feb, Rash R21 [facility] [address] [place] [address] 96480- 0322 Feb, [facility] [id number] [place] [address] 03361- 9979 Jan, Other chronic pain G89.29 and Muscle spasm M62.838 [facility] [id number] [place] [address] 86929- 7412 Jan, Mood disorder F39 [facility] [id number] [place] [address] 47177- 4388 Jan, Pain in right knee M25.561 ; Other chronic pain G89.29 and Muscle spasm M62.838 [facility] [id number] [place] [address] 48193- 1391 Dec, [facility] [id number] [place] [address] 88598- 8839 Dec, [facility] [id number] [place] [address] 47304- 2567 Nov, [facility] [address] [place] [address] 40881- 1303 Nov, Mood disorder F39 [facility] [address] [place] [address] 53584- 4380 Nov, Diabetes type 2, controlled E11.9 ; Bronchitis J40 ; Edema, unspecified type R60.9 ; Weight gain R63.5 and Right knee pain, unspecified chronicity M25.561 [facility] [address] [place] [address] 18915- 2171 Oct, Mood disorder F39 [facility] [id number] [place] [address] 91523- 9353 Oct, Lupus erythematosus L93.0 and Bilateral edema of lower extremity R60.0 [facility] [id number] [place] [address] 43017- 8777 Oct, Mood disorder F39 and Anxiety F41.9 [facility] [id number] [place] [address] 29209- 2026 September, Mood disorder F39 ; Anxiety F41.9 and Anger reaction R45.4 [facility] [id number] [place] [address] 46802- 5379 September, Diabetes type 2, controlled E11.9 ; Edema, unspecified type R60.9 and Fatigue, unspecified type R53.83 [facility] [id number] [place] [address] 82208- 0473 Aug, Mood disorder F39 and Generalized anxiety disorder F41.1 [place] [id number] [place] [address] 18458- 2517 Aug, Diabetes type 2, controlled E11.9 ; Sinusitis J32.9 and Mood disorder F39 [place] [id number] [place] [address] 77617- 1532 Aug, Lupus erythematosus L93.0 [facility] [id number] [place] [address] 91106- 7486 Aug, [facility] [id number] [place] [address] 21344- 4232 Aug, [facility] [id number] [place] [address] 55652- 9408 Jul, Diabetes type 2, controlled E11.9 [facility] [id number] [place] [address] 93135- 4732 Jul, Mood disorder F39 and Depression F32.9 [facility] [id number] [place] [address] 09477- 1260 Jul, Lupus erythematosus L93.0 and Diabetes type 2, controlled E11.9 [facility] [address], [place] [address] 2546 07 Jul, 2015 Mood disorder F39 and Anxiety F41.9 [facility] [address] [place] [address] 82544 2546 Jul, [facility] [id number] [place] [address] 00611 2546 Jul, [facility] [id number] [place] [address] 18050 2546 Jun, Mood disorder F39 and Anxiety F41.9 [facility] [id number] [place] [address] 35077- 1556 Jun, Mood disorder F39 [facility] [address] [place] [address] 56251- 5836 18 Jun, 2015 [facility] [id number] [place] [address] 70704- 6214 Jun, [facility] [address], [place] [address]- 8127 Jun, Mood disorder F39 [facility] [id number] [place] [address] 85804 2546 Jun, [facility] [address], [place] [address]- 9527 May, [facility] [address], [place] [address] 2546 May, [facility] [address], [place] [address] 2546 May, [facility] [id number] [place] [address] 92226 2546 May, [facility] [address], [place] [address]- 0097 May, Anxiety F41.9 ; Dermatomyositis M33.90 and Diabetes type 2, controlled E11.9 [facility] [id number] [place] [address] 36176 -1260 May, Sinusitis J32.9 and Cough R05 [facility] [id number] [place] [address] 94178- 9999 May, Mood disorder F39 [facility] [id number] [place] [address] 67728- 2738 May, Adjustment disorder with mixed anxiety and depressed mood F43.23 [facility] [id number] [place] [address] 45264- 6953 Apr, [facility] [id number] [place] [address] 19899- 3448 Apr, [facility] [id number] [place] [address] 90796- 7729 Apr, Generalized anxiety disorder F41.1 and Mood disorder F39 [facility] [id number] [place] [address] 83344- 4915 Mar, [facility] [id number] [place] [address] 26397- 7419 Mar, [facility] [id number] [place] [address] 10059- 5382 Mar, [facility] [id number] [place] [address] 43084- 8311 Mar, Mood disorder F39 [facility] [id number] [place] [address] 87715- 2335 Feb, [facility] [id number] [place] [address] 63127- 3022 Feb, Diabetes E11.9 and Bronchitis J40 [facility] [id number] [place] [address] 76737- 5977 Feb, [facility] [id number] [place] [address] 36161- 8573 Feb, [place] [id number] [place] [address] 92701- 9978 Feb, Major depression, recurrent, full remission F33.42 and KELLY ( generalized anxiety disorder) F41.1 [place] [id number] [place] [address] 64593- 4495 Feb, [place] [address] 59854- 5035 Feb, Single major depressive episode, in partial or unspecified remission F32.5 [place] [address] 84512- 2654 Jan, Fatigue 780.79 [place] [id number] [place] [address] 21039- 6224 Jan, [place] [address] 57253- 6832 Jan, Diabetes with other specified manifestations, type II or unspecified type, not stated as uncontrolled 250.80 [place] [id number] [place] [address] 64253- 4401 Jan, [place] [id number] [place] [address] 24398- 7433 Dec, Hot flashes 627.2 ; Memory loss 780.93 and Joint pain 719.40 [place] [id number] [place] [address] 44150- 7363 Dec, Major depression, recurrent 296.30 ; Generalized anxiety disorder 300.02 ; Adjustment disorder with depressed mood 309.0 and No condition on [place] II V71.09 [place] [address] 75137- 6708 Dec, [place] [id number] [place] [address] 09061- 0271 Nov, Cognitive and neurobehavioral dysfunction 294.9 ; Major depressive disorder, recurrent episode, moderate degree 296.32 and Anxiety state , unspecified 300.00 [place] [id number] [place] [address] 89316- 8455 Nov, [place] [id number] [place] [address] 69615- 8005 Nov, Bronchitis 490 and Diabetes with other specified manifestations, type II or unspecified type, not stated as uncontrolled 250.80 [place] [id number] [place] [address] 55994- 2309 Nov, Major depressive disorder, recurrent episode, moderate 296.32 and Anxiety disorder, unspecified 300.[address] [place] [id number] [place] [address] 99299- 3919 Nov, Anxiety, generalized 300.02 ; Intermittent explosive disorder 312.34 ; No condition on [place] II V71.09 and No condition on axis III V71.09 [place] [id number] [place] [address] 75238- 1150 Oct, Diabetes with other specified manifestations, type II or unspecified type, not stated as uncontrolled 250.80 ; Urinary tract infection, site not specified 599.0 and Bronchitis [address] [id number] [place] [address] 69976- 0978 Oct, Intermittent explosive disorder 312.34 ; Bipolar 1 disorder , depressed, moderate 296.52 ; Major depression, chronic 296.20 ; No condition on [place] II V71.09 and No condition on axis III V71.09 [address] [place] [address] 13453- 8205 Oct, Major depressive disorder, recurrent episode, moderate 296.32 ; Anxiety state 300.00 ; Cognitive decline 294.9 and No condition on [place] II V71.09 [address] [place] [address] 35910- 9810 Oct, [address] [place] [address] 37414- 8659 Oct, Major depressive disorder, recurrent episode, moderate 296.32 ; Anxiety disorder, unspecified 300.00 and Persistent disorder of initiating or maintaining sleep 307.42 [facility] [id number] [address] September, Diabetes with other specified manifestations, type II or unspecified type, not stated as uncontrolled 250.80 ; Memory loss 780.93 and Cognitive complaints 799.59 [facility] [id number] [place] [address] 63636- 6204 September, No condition on [place] II V71.09 ; Major depression, recurrent 296.30 and Persistent mood [affective] disorder, unspecified 296.90 [facility] [id number] [place] [address] 876414- 2555 Aug, [facility] [id number] [place] [address] 602533- 2786 Aug, [facility] [id number] [place] [address] 242505- 8397 Aug, [facility] [id number] [place] [address] 93784- 7593 Jul, [facility] [id number] [place] [address] 984547- 5273 Jul, [facility] [id number] [place] [address] 165426- 7655 Jul, [facility] [address] 4398 Jul, [facility] [id number] 3600 Jul, [facility] [id number] [place] [address] 28666- 7779 Jun, [facility] [id number] [place] [address] 26703- 8120 Jun, [facility] [id number], [place] [address]- 0636 Jun, [facility] [place] [facility] [address] [id number] [place] [address]- 3529 Jun, 2014 [facility] [place] [facility] [address] [id number] [place] [address]- 6079 Jun, 2014 [facility] [place] [facility] [address] [id number] [place] [address]- 5629 Jun, 2014 [facility] [place] [facility] [address] [id number] [place] [address]- 3300 Jun, 2014 [facility] [place] [facility] [address] [id number] [place] [address]- 1112 Jun, 2014 [facility] [place] [facility] [address] [id number] [place] [address]- 5977 Jun, 2014 [facility] [place] [facility] [address] [facility] [id number] [place] [address]- 5980 Jun, 2014 [facility] [place] [facility] [address] [id number] [place] [address]- 6334 Jun, 2014 [facility] [place] [facility] [address] [facility] [id number] [place] [address]- 8012 Jun, 2014 [facility] [place] [facility] [address] [facility] [id number] [place] [address]- 8028 Jun, 2014 [facility] [place] [facility] [address] [facility] [id number] [place] [address]- 1324 May, [facility] [place] [facility] [address] [id number] [address]- 1589 May, [facility] [place] [facility] [address] [facility] [id number] [place] [address]- 2300 Apr, [facility] [place] [facility] [address] [id number] [place] [address]- 6510 Apr, [facility] [place] [facility] [address] [facility] [id number] [place] [address]- 0609 Apr, [facility] [place] [facility] [address] [id number] [place] [address]- 8066 Apr, [facility] [place] [facility] [address] [id number] [place] [address]- 4686 Apr, [facility] [place] [facility] [address] [id number] [place] [address]- 0506 Apr, [facility] [place] [facility] [address] [id number] [place] [address]- 3536 Apr, [facility] [place] [facility] [address] [id number] [place] [address]- 2898 Apr, [facility] [place] [facility] [address] [id number] [place] [address]- 2410 Apr, [facility] [place] [facility] [address] [id number] [place] [address]- 9048 Apr, [facility] [place] [facility] [address] [id number] [place] [address]- 8600 Apr, [facility] [place] [facility] [address] [id number] [place] [address]- 4879 Apr, [facility] [place] [facility] [address] [id number] [place] [address]- 2268 Apr, [facility] [place] [facility] [address] [id number] [place] [address]- 2506 Apr, [facility] [place] [facility] [address] [id number] [place] [address]- 0908 Apr, [facility] [place] [facility] [address] [id number] [place] [address]- 5687 Apr, [facility] [place] [facility] [address] [id number] [place] [address]- 2832 Apr, [facility] [place] [facility] [address] [id number] [place] [address]- 9318 Apr, [facility] [place] [facility] [address] [id number] [place] [address]- 6287 Apr, [facility] [place] [facility] [address] [id number] [place] [address]- 6220 Apr, [facility] [place] [facility] [address] [id number] [place] [address]- 0727 Mar, [facility] [place] [facility] [address] [id number] [place] [address]- 9919 Mar, [facility] [place] [facility] [address] [id number] [place] [address]- 5444 Mar, [facility] [place] [facility] [address] [id number] [place] [address]- 9618 Mar, [facility] [place] [facility] [address] [id number] [place] [address]- 1628 Mar, [facility] [place] [facility] [address] [id number] [place] [address]- 6957 Mar, [facility] [place] [facility] [address] [id number] [place] [address]- 7014 Mar, [facility] [place] [facility] [address] [id number] [place] [address]- 6005 Mar, [facility] [place] [facility] [address] [id number] [place] [address]- 1579 Mar, [facility] [place] [facility] [address] [id number] [place] [address]- 6500 Mar, [facility] [place] [facility] [address] [id number] [place] [address]- 2518 Mar, [facility] [place] [facility] [address] [id number] [place] [address]- 7457 Mar, [facility] [place] [facility] [address] [id number] [place] [address]- 6269 Mar, [facility] [place] [facility] [address] [id number] [place] [address]- 4373 Feb, [facility] [place] [facility] [address] [id number] [place] [address]- 7524 Feb, [facility] [place] [facility] [address] [id number] [place] [address]- 5913 30 Feb, 2014 [facility] [place] [facility] [address] [id number] [place] [address]- 7627 Feb, [facility] [place] [facility] [address] [id number] [place] [address]- 6777 Feb, [facility] [place] [facility] [address] [id number] [place] 0519 Feb, [facility] [place] [facility] [address] [id number] [place] [address]- 1304 Feb, [facility] [place] [facility] [address] [id number] [place] [address]- 7534 Feb, [facility] [place] [facility] [address] [id number] [place] [address]- 8319 Feb, [facility] [place] [facility] [address] [id number] [place] [address]- 4365 Feb, [facility] [place] [facility] [address] [id number] [place] [address]- 5787 Feb, [facility] [place] [facility] [address] [id number] [place] [address]- 6721 Feb, [facility] [place] [facility] [address] [id number], [place] [address]- 3159 Feb, [facility] [place] [facility] [address] [id number], [place] [address]- 4539 07 Feb, 2014 [facility] [place] [facility] [address] [id number] [place] [address]- 4269 07 Feb, 2014 [facility] [place] [facility] [address] [id number], [place] [address]- 9093 10 Jan, 2014 [facility] [place] [facility] [address] [id number] [place] 2061 08 Jan, 2013 [facility] [place] [facility] [address] [id number] [place] [address]- 0680 08 Jan, 2013 [facility] [place] [facility] [address] [id number] [place] [address]- 8092 Jan, [facility] [place] [facility] [address] [id number] [place] [address]- 4693 Jan, [facility] [place] [facility] [address] [id number] [place] [address]- 7894 Dec, [facility] [place] [facility] [address] [id number] [place] [address]- 0970 Dec, [facility] [place] [facility] [address] [id number] [place] [address]- 1422 Dec, [facility] [place] [facility] [address] [id number] [place] [address]- 9410 Dec, [facility] [place] [facility] [address] [id number] [place] [address]- 6370 Nov, [facility] [place] [facility] [address] [id number] [place] [address]- 7704 Nov, [facility] [place] [facility] [address] [id number] [place] [address]- 7357 Nov, [facility] [place] [facility] [address] [id number] [place] [address]- 7770 Nov, [facility] [place] [facility] [address] [id number] [place] [address]- 7356 Nov, [facility] [place] [facility] [address] [id number] [place] [address]- 0637 Nov, [facility] [place] [facility] [address] [id number] [place] [address]- 2755 Nov, [facility] [place] [facility] [address] [id number] [place] [address]- 6416 Nov, [facility] [place] [facility] [address] [id number] [place] [address]- 0380 Nov, [facility] [place] [facility] [address] [id number] [place] [address]- 8525 Nov, [facility] [place] [facility] [address] [id number] [place] [address]- 6006 Oct, [facility] [place] [facility] [address] [id number] [place] [address]- 7777 Oct, [facility] [place] [facility] [address] [id number] [place] [address]- 3506 September, [facility] [place] [facility] [address] [id number] [place] [address]- 7140 September, [facility] [place] [facility] [address] [id number] [place] [address]- 5626 September, [facility] [place] [facility] [address] [id number] [place] [address]- 7296 September, [facility] [place] [facility] [address] [id number] [place] [address]- 2608 Aug, [facility] [place] [facility] [address] [id number] [place] [address]- 1829 Aug, [facility] [place] [facility] [address] [id number] [place] [address]- 3014 Aug, [facility] [place] [facility] [address] [id number] [place] [address]- 9948 Jul, [facility] [place] [facility] [address] [id number] [place] [address]- 5676 24 Jul, 2013 [facility] [place] [facility] [address] [id number] [place] [address]- 8266 Jul, [facility] [place] [facility] [address] [id number] [place] [address]- 5060 Jul, [facility] [place] [facility] [address] [id number] [place] [address]- 5329 May, [facility] [place] [facility] [address] [id number] [place] [address]- 0528 May, [facility] [place] [facility] [address] [id number] [place] [address]- 1177 May, [facility] [place] [facility] [address] [id number] [place] 5604 Mar, [facility] [place] [facility] [address] [id number] [place] [address]- 2442 Mar, [facility] [place] [facility] [address] [id number] [place] [address]- 5000 Mar, [facility] [place] [facility] [address] [id number] [place] [address]- 5977 Mar, [facility] [place] [facility] [address] [id number] [place] [address]- 4417 Feb, [facility] [place] [facility] [address] [id number] [place] [address]- 3656 Feb, [facility] [place] [facility] [address] [id number] [place] [address]- 2589 Feb, [facility] [place] [facility] [address] [id number] [place] [address]- 2106 Jan, [facility] [place] [facility] [address] [id number] [place] [address]- 5477 Jan, [facility] [place] [facility] [address] [id number] [place] [address]- 3928 Jan, [facility] [place] [facility] [address] [id number] [place] [address]- 1317 Dec, [facility] [place] [facility] [address] [id number] [place] [address]- 5146 Dec, [facility] [place] [facility] [address] [id number] [place] 8819 Dec, [facility] [place] [facility] [address] [id number] [place] [address]- 3111 Dec, [facility] [place] [facility] [address] [id number] [place] [address]- 0137 Nov, [facility] [address] [id number] [place] [address]- 3279 Oct, [facility] [address] [id number] [place] [address] 2546 Oct, [facility] [address] [id number] [place] [address]- 8154 September, [facility] [address] [id number] [place] [address]- 6688 September, [facility] [address] [id number] [place] [address]- 1404 September, [facility] [address] [id number] [place] [address]- 0002 Aug, [facility] [address] [id number] [place] [address]- 0515 Aug, [facility] [address] [id number] [place] [address]- 6166 Aug, [facility] [address] [id number] [place] [address]- 4148 Aug, [facility] [address] [id number] [place] [address]- 5911 26 Jul, 2012 [facility] [address] [id number] [place] [address]- 9622 Jul, [facility] [address] [id number] [place] [address]- 5669 21 Jul, 2012 [facility] [address] [id number] [place] [address]- 3130 15 Jul, 2012 [facility] [address] [id number] [place] [address]- 8336 14 Jul, 2012 [facility] [address] [id number] [place] [address]- 6854 Jul, [facility] [place] [facility] [address] [id number] [place] [address]- 4512 13 Jul, 2012 [facility] [place] [facility] [address] [id number] [place] [address]- 8016 06 Jun, 2012 [facility] [place] [facility] [address] [id number] [place] [address]- 8475 Jun, [facility] [place] [facility] [address] [id number] [place] [address]- 4604 Jun, [facility] [place] [facility] [address] [id number] [place] [address]- 5987 Jun, [facility] [place] [facility] [address] [id number] [place] [address]- 8870 May, [facility] [place] [facility] [address] [id number] [place] [address]- 6036 May, [facility] [place] [facility] [address] [id number] [place] [address]- 0442 May, [facility] [place] [facility] [address] [id number] [place] [address]- 3523 May, [facility] [place] [facility] [address] [id number] [place] [address]- 5539 May, [facility] [place] [facility] [address] [id number] [place] [address]- 7240 Apr, [facility] [place] [facility] [address] [id number] [place] [address]- 1354 Apr, [facility] [place] [facility] [address] [id number] [place] [address]- 0434 Mar, [facility] [place] [facility] [address] [id number] [place] [address]- 8189 Mar, [facility] [place] [facility] [address] [id number] [place] [address]- 7908 Mar, [facility] [place] [facility] [address] [id number] [place] [address]- 3028 Mar, [facility] [place] [facility] [address] [id number] [place] [address]- 2192 Mar, [facility] [place] [facility] [address] [id number] [place] [address]- 2256 Mar, [facility] [place] [facility] [address] [id number] [place] [address]- 0483 Mar, [facility] [place] [facility] [address] [id number] [place] [address]- 6578 Mar, [facility] [place] [facility] [address] [id number] [place] [address]- 1961 Mar, [facility] [place] [facility] [address] [id number] [place] [address]- 6861 Mar, [facility] [place] [facility] [address] [id number] [place] [address]- 6291 Feb, [facility] [place] [facility] [address] [id number] [place] [address]- 2821 Feb, [facility] [place] [facility] [address] [id number] [place] [address]- 0183 Feb, [facility] [place] [facility] [address] [id number] [place] [address]- 3492 Feb, [facility] [place] [facility] [address] [id number] [place] [address]- 9585 Feb, [facility] [place] [facility] [address] [id number] [place] [address]- 7345 Feb, [facility] [place] [facility] [address] [id number] [place] [address]- 2884 Feb, [facility] [place] [facility] [address] [id number] [place] [address]- 8200 12 Jan, 2012 [facility] [place] [facility] [address] [id number] [place] [address]- 9178 Jan, [facility] [place] [facility] [address] [id number] [place] [address]- 9742 Dec, [facility] [place] [facility] [address] [id number] [place] [address]- 4373 Dec, [facility] [place] [facility] [address] [id number] [place] [address]- 9287 Dec, [facility] [place] [facility] [address] [id number] [place] [address]- 3791 Dec, [facility] [place] [facility] [address] [id number] [place] [address]- 3252 Dec, [facility] [place] [facility] [address] [id number] [place] [address]- 9287 Dec, [facility] [place] [facility] [address] [id number] [place] [address]- 6911 Nov, [facility] [place] [facility] [address] [id number] [place] [address]- 9864 Nov, [facility] [place] [facility] [address] [id number] [place] [address]- 3076 Nov, [facility] [place] [facility] [address] [id number] [place] [address]- 8839 Nov, [facility] [place] [facility] [address] [id number] [place] [address]- 1027 September, [facility] [place] [facility] [address] [id number] [place] [address]- 7811 September, [facility] [place] [facility] [address] [id number] [place] [address]- 5298 September, [facility] [place] [facility] [address] [id number] [place] [address] Jul, [facility] [place] [facility] [address] [id number] [place] [address] Jun, [facility] [place] [facility] [address] [id number], [place] [address] Jun, [facility] [address] [id number] [address] Jun, [facility] [address], [place] [address] Apr, [facility] [id number], [place] [address] Mar, [facility] [id number], [place] [address] Mar, [facility] [id number], [place] [address] Feb, [facility] [id number], [place] [address] Feb, [facility] [id number], [place] [address] Feb, [facility] [address], [place] [address] Jul, [facility] [id number], [place] [address] Feb, IMMUNIZATIONS No Known Immunizations SOCIAL HISTORY Never Assessed REASON FOR VISIT Pain management (chronic) -Zoran MARROQUIN PLAN OF CARE VITAL SIGNS Height 62 in 2018-01-25 Weight 243.5 lbs 2018-01-25 Temperature 98.1 degrees Fahrenheit 2018-01-25 Heart Rate 102 bpm 2018-01-25 Respiratory Rate 20 2018-01-25 Oximetry 97 % 2018-01-25 BMI 44.53 kg/m2 2018-01-25 Blood pressure systolic 136 mmHg 2018-01-25 Blood pressure diastolic 78 mmHg 2018-01-25 MEDICATIONS Medication Instructions Dosage Frequency Start Date End Date Duration Status Cymbalta 60 mg Orally Twice a day 1 capsule 12h Aug, Active Benzonatate 100 MG TAKE ONE CAPSULE BY MOUTH THREE TIMES DAILY NEEDED 10 Active Actos 30 MG TAKE ONE TABLET BY MOUTH ONCE DAILY 30 Active PredniSONE 20 mg 1 tablet 24h Active Neurontin 300 MG Orally Three times a day 1 capsule 8h Nov, 30 day(s) Active Lisinopril-Hydrochlorothiazide 20-25 MG TAKE ONE TABLET BY MOUTH ONCE DAILY 30 Active Furosemide 20 MG TAKE 1 TABLET BY MOUTH ONCE DAILY 30 Active Potassium Chloride Marie ER 20 MEQ TAKE ONE TABLET BY MOUTH ONCE DAILY WITH FOOD 30 Active Dulera 200-5 MCG/ACT Inhalation Twice a day 1 puff 12h Dec, Active Methotrexate 2.5 MG Orally 1 time per week 6 Active Zanaflex 4 MG Orally Three times a day 1 tablet as needed 8h Dec, Active Proventil HFA 108 (90 Base) MCG/ACT INHALE TWO PUFFS BY MOUTH FOUR TIMES DAILY NEEDED 25 Active [place] 7.5-325 MG Orally every 6 hrs 1 tablet as needed 6h Dec, Active Spironolactone 25 MG TAKE ONE TABLET BY MOUTH ONCE DAILY 30 Active Omeprazole Active Victoza 18 mg/3ml 1.8 mg injection 24h Active Lasix Active Terbinafine HCl 1 % Externally Twice a day 1 application to affected area 12h Aug, Active Walker 1 as directed Dec, Active Magnesium Oxide 400 mg Orally Once a day 1 tablet as needed 24h 30 day(s) Active Folic Acid 1 MG TAKE ONE TABLET BY MOUTH ONCE DAILY (DO NOT TAKE ON DAYS YOU TAKE METHOTREXATE) 30 Active Glucocard Expression Test - as directed 24h Nov, 50 Active Diflucan 150 MG Orally Once a day 1 tablet 24h 20 Dec, 2017 03 days Active RESULTS No Results PROCEDURES Procedure Date Ordered Result Body Site [facility] Jan [facility], 2018 GLYCATED HEMOGLOBIN TEST Jan 25, 2018 INSTRUCTIONS MEDICATIONS ADMINISTERED No Known Medications MEDICAL (GENERAL) HISTORY Type Description Date Medical History type II diabetes-dx'd 12/2010 Medical History dysfunctional uterine bleeding--endometrial bx 12/2010 Medical History asthma Medical History hypertension Medical History obesity Medical History anxiety Medical History autoimmune disease Surgical History x1 Hospitalization History child Hospitalization History Asthma
--- NOTE | 2018-05-09 23:27 | ED General ---
General Chief Complaint: Glucose Problems Stated Complaint: HIGH BLOOD SUGAR Nursing Triage Note: PT PRESENTS TO ER WITH COMPLAINT OF HIGH BLOOD SUGARS. STATES THEY HAVE BEEN OVER 600 AT HOME AND IS UNABLE TO GET THEM DOWN. Nursing Sepsis Screen: No Definite Risk Source of Information: Patient, Old Records Exam Limitations: No Limitations History of Present Illness Date Seen by Provider: May 09, 2018 Time Seen by Provider: 22:11 Initial Comments This 52-year-old woman with dermatomyositis and diabetes presents to the emergency room with complaints of blood sugars reading "high" at home. She has noted very high blood sugars throughout the day today. She has had recent changes to her diabetes medications. She is now on Actos instead of Mobic toes. She could not tolerate metformin. She takes prednisone daily for the dermatomyositis. She is afebrile. She has had a little bit of cough but denies other acute symptoms of infectious illness. She reports her recent A1c was also quite high. She complains of thirst and frequent urination. Allergies and Home Medications Allergies Coded Allergies: latex (Verified Allergy, Unknown, 02/03/18) sertraline (Verified Allergy, Unknown, 02/03/18) aspirin (Unverified Adverse Reaction, Severe, 11/12/10) Home Medications Albuterol Sulfate 6.7 Gm Hfa.aer.ad, 2 PUFF INH Q4H PRN for SHORTNESS OF BREATH, (Reported) Duloxetine HCl 60 Mg Capsule.dr, 60 MG PO 0700,1900, (Reported) Folic Acid 1 Mg Tablet, 1 MG PO [id number], (Reported) DOES NOT TAKE ON SUNDAYS WHEN TAKING METHOTREXATE Furosemide 20 Mg Tablet, 20 MG PO DAILY, (Reported) Gabapentin 600 Mg Tablet, 600 MG PO TID, (Reported) Glipizide 5 Mg Tablet, 5 MG PO 0700,1900, (Reported) Hydrocodone/Acetaminophen 1 Each Tablet, 1 TAB PO TID PRN for PAIN-MODERATE, ( Reported) L.acidoph & Paracasei,B.lactis 1 Each Capsule, 2 CAP PO DAILY, (Reported) Lisinopril/Hydrochlorothiazide 1 Each Tablet, 1 TAB PO DAILY, (Reported) Loratadine 10 Mg Tablet, 10 MG PO DAILY, (Reported) Methotrexate Sodium 2.5 Mg Tablet, 15 MG PO Sims, (Reported) TAKES 6 (2.5MG) TABLETS Omeprazole 20 Mg Capsule.dr, 20 MG PO DAILY, (Reported) Pioglitazone HCl 30 Mg Tablet, 30 MG PO DAILY, (Reported) Polyvinyl Alcohol/Povidone 15 Ml Drops, 1 DROP OS QID, (Reported) 30 MINUTES AFTER PRESCRIPTION EYE DROP Potassium Chloride 20 Meq Tab.er.prt, 20 MEQ PO DAILY, (Reported) Prednisolone Acetate 5 Ml Drops.susp, 1 DROP OS QID, (Reported) Prednisone 20 Mg Tab, 20 MG PO DAILY, (Reported) Pseudoephedrine HCl 60 Mg Tablet, 60 MG PO BID PRN for CONGESTION, (Reported) Spironolactone 25 Mg Tablet, 25 MG PO DAILY, (Reported) Patient Home Medication List Home Medication List Reviewed: Yes Review of Systems Review of Systems Constitutional: no symptoms reported EENTM: no symptoms reported Respiratory: see HPI Cardiovascular: no symptoms reported Gastrointestinal: no symptoms reported Genitourinary: no symptoms reported : No Musculoskeletal: no symptoms reported Skin: no symptoms reported Psychiatric/Neurological: No Symptoms Reported Hematologic/Lymphatic: No Symptoms Reported Immunological/Allergic: see HPI Past Fwvxxoy-Malmag-Uwxpxv Hx Patient Social History Alcohol Use: Denies Use Recreational Drug Use: No Smoking Status: Former Smoker Recent Foreign Travel: No Contact w/Someone Who Travel: No Recent Infectious Disease Expo: No Recent Hopitalizations: No Immunizations Up To Date Tetanus Booster (TDap): Unknown Seasonal Allergies Seasonal Allergies: No Past Medical History Surgeries: Yes Section Respiratory: Yes Cardiac: Yes Hypertension Neurological: No 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 Disorders: No Genitourinary: No Gastrointestinal: Yes Gastroesophageal Reflux Musculoskeletal: Yes (dermatomyositis) Arthritis Endocrine: No HEENT: Yes (Chronic eye irritation) Cancer: No Psychosocial: Yes Anxiety Integumentary: No Blood Disorders: No Family Medical History No Pertinent Family Hx Physical Exam Vital Signs Vital Signs - First Documented 05/09/18 22:14 Temp 97.8 Pulse 108 Resp 24 B/P (MAP) 116/64 (81) Pulse Ox 98 O2 Delivery Room Air Capillary Refill : Less Than 3 Seconds Height, Weight, BMI Height: 5'2.00" Weight: 200lbs. oz. 90.550756dn; BMI Method:Stated General Appearance: No Apparent Distress, WD/WN HEENT: PERRL/EOMI, Normal ENT Inspection, Other (Oropharynx somewhat dry. 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 Skin: Normal Color, Warm/Dry Focused Exam Lactate Level 05/09/18 22:22: Lactic Acid Level 3.22*H 05/10/18 00:22: Lactic Acid Level 2.80*H Lactic Acid Level Progress/Results/Core Measures Suspected Sepsis Recent Fever Within 48 Hours: No Infection Criteria Present: None New/Unexplained Altered Menta: No Sepsis Screen: No Definite Risk SIRS Temperature:97.8 Pulse: 108 Respiratory Rate: 24 Laboratory Tests 05/09/18 22:22: White Blood Count 9.1 05/10/18 05:40: White Blood Count 7.6 Blood Pressure 116 /64 Mean: 81 05/09/18 22:22: Lactic Acid Level 3.22*H 05/10/18 00:22: Lactic Acid Level 2.80*H Laboratory Tests 05/09/18 22:22: Creatinine 1.60H, Platelet Count 231, Total Bilirubin 0.3 05/10/18 05:40: Creatinine 0.99, Platelet Count 219, Total Bilirubin 0.4 Results/Orders Lab Results Laboratory Tests Test 05/09/18 22:17 05/09/18 22:22 05/09/18 22:36 05/10/18 00:09 Range/Units Glucometer > 600 *H 445 *H 70-110 MG/DL White Blood Count 9.1 4.3-11.0 10^3/uL Red Blood Count 4.74 4.35-5.85 10^6/uL Hemoglobin 13.3 11.5-16.0 G/DL Hematocrit 38 35-52 % Mean Corpuscular Volume 81 80-99 FL Mean Corpuscular Hemoglobin 28 25-34 PG Mean Corpuscular Hemoglobin Concent 35 32-36 G/DL Red Cell Distribution Width 16.6 H 10.0-14.5 % Platelet Count 231 130-400 10^3/uL Mean Platelet Volume 9.8 7.4-10.4 FL Neutrophils (%) (Auto) 76 H 42-75 % Lymphocytes (%) (Auto) 19 12-44 % Monocytes (%) (Auto) 6 0-12 % Eosinophils (%) (Auto) 0 0-10 % Basophils (%) (Auto) 0 0-10 % Neutrophils # (Auto) 6.9 1.8-7.8 X 10^3 Lymphocytes # (Auto) 1.7 1.0-4.0 X 10^3 Monocytes # (Auto) 0.5 0.0-1.0 X 10^3 Eosinophils # (Auto) 0.0 0.0-0.3 10^3/uL Basophils # (Auto) 0.0 0.0-0.1 10^3/uL Sodium Level 125 *L 135-145 MMOL/L Potassium Level 4.9 3.6-5.0 MMOL/L Chloride Level 87 L 98-107 MMOL/L Carbon Dioxide Level 23 21-32 MMOL/L Anion Gap 15 H 5-14 MMOL/L Blood Urea Nitrogen 21 H 7-18 MG/DL Creatinine 1.60 H 0.60-1.30 MG/DL Estimat Glomerular Filtration Rate 41 BUN/Creatinine Ratio 13 Glucose Level 672 *H 70-105 MG/DL Lactic Acid Level 3.22 *H 0.50-2.00 MMOL/L Calcium Level 9.6 8.5-10.1 MG/DL Corrected Calcium 9.8 8.5-10.1 MG/DL Magnesium Level 2.1 1.8-2.4 MG/DL Total Bilirubin 0.3 0.1-1.0 MG/DL Aspartate Amino Transf (AST/SGOT) 22 5-34 U/L Alanine Aminotransferase (ALT/SGPT) 44 0-55 U/L Alkaline Phosphatase 110 40-136 U/L C-Reactive Protein High Sensitivity 1.14 H 0.00-0.50 MG/DL Total Protein 7.2 6.4-8.2 GM/DL Albumin 3.8 3.2-4.5 GM/DL Urine Color YELLOW Urine Clarity CLEAR Urine pH 6 5-9 Urine Specific [place] 1.010 L 1.016-1.022 Urine Protein NEGATIVE NEGATIVE Urine Glucose (UA) 4+ H NEGATIVE Urine Ketones NEGATIVE NEGATIVE Urine Nitrite NEGATIVE NEGATIVE Urine Bilirubin NEGATIVE NEGATIVE Urine Urobilinogen NORMAL NORMAL MG/DL Urine Leukocyte Esterase 3+ H NEGATIVE Urine RBC (Auto) 2+ H NEGATIVE Urine RBC 2-5 H /HPF Urine WBC >100 H /HPF Urine Squamous Epithelial Cells 0-2 /HPF Urine Crystals NONE /LPF Urine Bacteria FEW H /HPF Urine Casts NONE /LPF Urine Mucus NEGATIVE /LPF Urine Trichomonas FEW H /HPF Urine Culture Indicated YES Test 05/10/18 00:22 05/10/18 04:28 05/10/18 05:40 05/10/18 07:48 Range/Units Lactic Acid Level 2.80 *H 0.50-2.00 MMOL/L Glucometer 304 H 228 H 70-110 MG/DL White Blood Count 7.6 4.3-11.0 10^3/uL Red Blood Count 4.31 L 4.35-5.85 10^6/uL Hemoglobin 12.1 11.5-16.0 G/DL Hematocrit 35 35-52 % Mean Corpuscular Volume 81 80-99 FL Mean Corpuscular Hemoglobin 28 25-34 PG Mean Corpuscular Hemoglobin Concent 35 32-36 G/DL Red Cell Distribution Width 16.5 H 10.0-14.5 % Platelet Count 219 130-400 10^3/uL Mean Platelet Volume 9.7 7.4-10.4 FL Neutrophils (%) (Auto) 66 42-75 % Lymphocytes (%) (Auto) 27 12-44 % Monocytes (%) (Auto) 6 0-12 % Eosinophils (%) (Auto) 1 0-10 % Basophils (%) (Auto) 0 0-10 % Neutrophils # (Auto) 5.0 1.8-7.8 X 10^3 Lymphocytes # (Auto) 2.0 1.0-4.0 X 10^3 Monocytes # (Auto) 0.5 0.0-1.0 X 10^3 Eosinophils # (Auto) 0.1 0.0-0.3 10^3/uL Basophils # (Auto) 0.0 0.0-0.1 10^3/uL Sodium Level 131 L 135-145 MMOL/L Potassium Level 3.9 3.6-5.0 MMOL/L Chloride Level 97 L 98-107 MMOL/L Carbon Dioxide Level 24 21-32 MMOL/L Anion Gap 10 5-14 MMOL/L Blood Urea Nitrogen 16 7-18 MG/DL Creatinine 0.99 0.60-1.30 MG/DL Estimat Glomerular Filtration Rate > 60 BUN/Creatinine Ratio 16 Glucose Level 304 H 70-105 MG/DL Calcium Level 8.7 8.5-10.1 MG/DL Corrected Calcium 9.2 8.5-10.1 MG/DL Total Bilirubin 0.4 0.1-1.0 MG/DL Aspartate Amino Transf (AST/SGOT) 17 5-34 U/L Alanine Aminotransferase (ALT/SGPT) 36 0-55 U/L Alkaline Phosphatase 79 40-136 U/L Total Protein 6.0 L 6.4-8.2 GM/DL Albumin 3.4 3.2-4.5 GM/DL Test 05/10/18 12:23 Range/Units Glucometer 325 H 70-110 MG/DL My Orders Orders - FRANCINE FIGUEROA MD Accucheck Stat ONCE (05/09/18 22:11) Ua Culture If Indicated (05/09/18 22:11) Cbc With Automated Diff (05/09/18 22:30) Comprehensive Metabolic Panel (05/09/18 22:30) Hs C Reactive Protein (05/09/18 22:30) Lactic Acid Analyzer (05/09/18 22:30) Magnesium (05/09/18 22:30) Saline Lock/Iv-Start (05/09/18 22:30) Ns Iv 1000 Ml (Sodium Chloride 0.9%) (05/09/18 22:30) Insulin (Regular) Human (Humulin R (Per (05/09/18 22:30) Accucheck Stat ONCE (05/09/18 22:30) Accucheck Stat ONCE (05/09/18 22:30) Urine Culture (05/09/18 22:36) Blood Culture (05/09/18 23:01) Ceftriaxone For Iv Use (Rocephin For I (05/09/18 23:15) Saline Lock/Iv-Start (05/09/18 23:02) Ns Iv 1000 Ml (Sodium Chloride 0.9%) (05/09/18 23:02) Chest Pa/Lat (2 View) (05/09/18 23:04) Metronidazole Tablet (Flagyl Tablet) (05/09/18 23:15) Medications Given in ED Vital Signs/I&O 05/10/18 05/10/18 05/10/18 05/10/18 01:45 01:57 04:00 07:37 Temp 97.2 97.0 Pulse 87 100 92 91 Resp 18 18 B/P (MAP) 107/56 (73) 123/58 (79) Pulse Ox 99 94 O2 Delivery Room Air Room Air 05/10/18 05/10/18 05/10/18 08:00 08:00 12:00 Temp 97.4 97.9 Pulse 100 101 Resp 20 20 B/P (MAP) 126/76 (93) 119/61 (80) Pulse Ox 98 98 97 O2 Delivery Room Air Room Air Room Air Capillary Refill : Less Than 3 Seconds Blood Pressure Mean: 81 Point of Care Testing Blood Glucose Action Taken: TOO HIGH TO READ, DR NOTIFIED Progress Note #1: Progress Note Patient received 2 L of IV normal saline in the ER. Rocephin was given for initial treatment of urinary tract infection. Flagyl was given for Trichomonas. Hyperglycemia was initially treated with 5 units of insulin by IV route. Progress Note #2: Progress Note Patient was admitted for IV hydration and control of her hyperglycemia. Rocephin will be continued to treat UTI and Flagyl will be continued to treat Trichomonas. Diagnostic Imaging Diagonstic Imaging: Xray Plain Films/CT/US/NM/MRI: chest Comments Chest x-ray viewed by me. Report not yet available. No acute abnormalities appreciated. Departure Communication (Admissions) Time/Spoke to Admitting Phy: 23:10 Dr. Orozco Impression Primary Impression: Acute renal failure Qualified Codes: N17.9 - Acute kidney failure, unspecified Additional Impressions: Hyperglycemia Urinary tract infection Qualified Codes: N39.0 - Urinary tract infection, site not specified Trichomonas infection Disposition: ADMITTED INPATIENT Condition: Improved Admissions Decision to Admit Reason: Admit from ER (General) Decision to Admit/Date: May 09, 2018 Time/Decision to Admit Time: 23:10 Departure-Patient Inst. Referrals: [facility] [place]) Primary Care Physician MACY TAMAYO (Family) Primary Care Physician FRANCINE FIGUEROA MD May 09, 2018 23:27
--- OUTSIDE RECORDS SUMMARY | 2018-05-09 23:27 | XMS REPORT ---
Author Author MACY TAMAYO [facility] Address [address] [place] [address] Care Team Providers [facility] Manager Name Role Phone MACY TAMAYO Unavailable PROBLEMS Type Condition ICD9-CM Code HKN30-CN Code Onset Dates Condition Status SNOMED Code Problem Controlled type 2 diabetes mellitus without complication, without long -term current use of insulin E11.9 Active 747844858 Problem Body mass index (BMI) of 45.0-49.9 in adult Z68.42 Active 764177327 Problem Tachycardia with heart rate 121-140 beats per minute R00.0 Active 9145901 Problem Facial droop R29.810 Active 90447798 Problem Menopause Z78.0 Active 463927655 Problem Gait disturbance R26.9 Active 12679343 Problem Dermatomyositis M33.90 Active 360269716 Problem Enlarged thyroid gland E04.9 Active 3600482 Problem Lumbago with sciatica, right side M54.41 Active 281767049 Problem Morbid (severe) obesity due to excess calories E66.01 Active 410665742 Problem Diabetes type 2, controlled E11.9 Active 61832972 Problem Osteoarthritis of right knee, unspecified osteoarthritis type M17.9 Active 377768957 Problem Allergic rhinitis due to pollen J30.1 Active 97349900 Problem Mood disorder F39 Active 26029614 Problem Arthritis M19.90 Active 5913702 Problem Plantar warts B07.0 Active 01731820 Problem Anxiety F41.9 Active 95041356 Problem Plantar wart of both feet B07.0 Active [id number] Problem Other chronic pain G89.29 Active 50967051 Problem Lumbago with sciatica, left side M54.42 Active [id number] ALLERGIES No Information ENCOUNTERS Encounter Location Date Diagnosis [facility] [place] [address] [facility] [id number] [address] Mar, [facility] [place] [address] [facility] [id number] [place] [address] 00298- 8966 Feb, [facility] [place] [address] [id number] [place] [address] 73599- 3129 Feb, [facility] [place] [id number] [place] [address] 53312- 8514 28 Jan, 2018 [facility] [place] [address] 92481- 3020 Jan, [facility] [place] [address] 15775- 7260 25 Jan, 2018 [facility] [place] [address] 03388- 7544 24 Jan, 2018 [facility] [place] [address] 29735- 9616 21 Jan, 2018 [facility] [place] [address] 58447- 0497 21 Jan, 2018 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 [facility] [place] [id number] [place] [address] 26654- 1946 Jan, [facility] [place] [address] 28545- 5042 Jan, [facility] [place] [id number] [place] [address] 75598- 9843 21 Jan, 2018 [facility] [place] [address] 57763- 0694 19 Jan, 2018 Allergic reaction to drug, initial encounter T78.40XA [facility] [place] [id number] [place] [address] 72515- 6420 17 Jan, 2018 BMI 45.0-49.9, adult Z68.42 and Facial droop R29.810 [facility] [place] [id number] [place] [address] 85024- 9896 14 Jan, 2018 Mood disorder F39 [facility] [place] [address] 94913- 4752 Jan, Dermatomyositis M33.90 and BMI 40.0-44.9, adult Z68.41 [place] [address] 60513- 2499 10 Jan, 2018 [place] [address] [id number] [place] [address] 35434- 6062 05 Jan, 2018 [place] [address] 42967- 6821 04 Jan, 2018 Irritation of left eye H57.8 and BMI 40.0-44.9, adult Z68.41 [place] [address] 85522- 7144 Dec, Diabetes type 2, controlled E11.9 [place] [address] 80140- 7664 Dec, Acute right ankle pain M25.571 [place] [address] 35461- 5602 Dec, Other chronic pain G89.29 ; Diabetes type 2, controlled E11.9 ; Gait disturbance R26.9 ; Weakness R53.1 and Muscle spasm M62.838 [place] [address] [address] [id number] [place] [address] 66778- 0354 Dec, Acute non-recurrent maxillary sinusitis J01.00 [place] [address] [place] [id number] [place] [address] 08368- 6351 Dec, [place] [address] [place] [id number] [place] [address] 34885- 9527 Dec, [place] [address] 18401- 7406 Dec, Acute non-recurrent maxillary sinusitis J01.00 [place] [address] [address] [id number] [place] [address] 50504- 5066 Dec, Lumbago with sciatica, right side M54.41 and Lupus erythematosus L93.0 [facility] [place] [address], [place] [address] 5712 Dec, Mood disorder F39 [facility] [place] [id number] [place] [address] 43871- 1007 Dec, Mood disorder F39 [facility] [place] [id number] [place] [address] 85973- 2622 Dec, [facility] [place] [id number] [place] [address] 53410- 3663 Dec, Acute right ankle pain M25.571 [facility] [place] [id number] [place] [address] 50537- 2790 Nov, Lumbar radiculopathy M54.16 [facility] [place] [id number] [place] [address] 15457- 0314 Nov, [facility] [place] [id number] [place] [address] 40341- 7533 Nov, Mood disorder F39 [facility] [place] [id number] [place] [address] 99713- 5922 Nov, Lumbago with sciatica, right side M54.41 and Other chronic pain G89.29 [facility] [place] [id number] [place] [address] 58815- 7434 Nov, Acute right ankle pain M25.571 [facility] [place] [id number] [place] [address] 39112- 0886 Nov, [facility] [place] [id number] [place] [address] 93172- 9575 Oct, [facility] [place] [id number] [place] [address] 33603- 7984 Oct, Plantar wart of both feet B07.0 [facility] [place] [address], [place] [address]- 5287 Oct, [facility] [place] [id number] [place] [address] 53526- 4209 Oct, Acute right ankle pain M25.571 and Plantar wart of both feet B07.0 [place] [address] [address] [id number] [place] [address] 92926- 6868 September, Other chronic pain G89.29 [place] [address] 02652- 1086 September, Other chronic pain G89.29 [place] [address] 34545- 3965 September, Other chronic pain G89.29 [place] [address] 59132- 4295 Aug, Mood disorder F39 [place] [address] 37419- 1464 Aug, Other chronic pain G89.29 ; Controlled type 2 diabetes mellitus without complication, without long-term current use of insulin E11.9 ; Low back pain M54.5 and Tinea corporis B35.4 [place] [address] 83816- 9551 Aug, Mood disorder F39 and Anxiety F41.9 [place] [address] [place] [address] [id number] [place] [address] 34930- 5155 Aug, Mood disorder F39 and Anxiety F41.9 [place] [address] [place] [address] [id number] [place] [address] 61314- 6181 Jul, [facility] [id number] [place] [address] 79602 -3944 Jul, Scabies B86 and BMI 45.0-49.9, adult Z68.42 [facility] [place] [id number] [place] [address] 60746- 9897 Jul, [place] [address] 43216- 2497 Jul, Mood disorder F39 and Anxiety F41.9 [facility] [place] [id number] [place] [address] 51719- 0996 Jul, [facility] [id number] [place] [address] 13292 -7277 27 Jun, 2017 Bronchitis J40 ; Dark urine R82.99 and BMI 45.0-49.9, adult Z68.42 [place] [address] [address] [id number] [place] [address] 99722- 4368 14 Jun, 2017 Acute pain of right shoulder M25.511 and Acute pain of right knee M25.561 [place] [address] 75343- 4229 May, BMI 40.0-44.9, adult Z68.41 ; Controlled type 2 diabetes mellitus without complication, without long-term current use of insulin E11.9 ; Muscle cramping R25.2 ; Hot flashes R23.2 ; Mood disorder F39 ; Anxiety F41.9 and Morbid (severe) obesity due to excess calories E66.01 [place] [id number] [place] [address] 30713- 7184 May, BMI 40.0-44.9, adult Z68.41 ; Controlled type 2 diabetes mellitus without complication, without long-term current use of insulin E11.9 ; Muscle cramping R25.2 and Hot flashes R23.2 [place] [id number] [place] [address] 01059- 3551 May, Tachycardia with heart rate 121-140 beats per minute R00.0 ; Morbid (severe) obesity due to excess calories E66.01 ; Diabetes type 2, controlled E11.9 and Enlarged thyroid gland E04.9 [place] [id number] [place] [address] 31683- 4193 May, Encounter for well woman exam with [...] and Screening breast examination Z12.31 [place] [address] [place] [id number] [place] [address] 05957- 5586 Apr, Mood disorder F39 ; Other chronic pain G89.29 and Anxiety F41.9 [place] [address] [place] [id number] [place] [address] 32779- 1451 Apr, Lumbago with sciatica, left side M54.42 and Other chronic pain G89.29 [place] [address] [place] [id number] [place] [address] 14989- 5452 Apr, Lupus erythematosus L93.0 [place] [address] [place] [id number] [place] [address] 55161- 7854 Mar, Plantar wart of both feet B07.0 [place] [address] [place] [id number] [place] [address] 73857- 5912 Mar, Lupus erythematosus L93.0 and Sinus drainage J34.89 [place] [address] [place] [id number] [place] [address] 85017- 5066 Mar, Mood disorder F39 ; Other chronic pain G89.29 and Anxiety F41.9 [place] [address] [place] [id number] [place] [address] 66006- 9630 Mar, Mood disorder F39 ; Arthritis M19.90 and Plantar warts B07.0 [place] [address] [place] [id number] [place] [address] 87699- 4574 Feb, Lupus erythematosus L93.0 [facility] [place] [id number] [place] [address] 57588- 6133 Feb, Other chronic pain G89.29 [place] [address] 25719- 9456 Feb, Mood disorder F39 and Anxiety F41.9 [facility] [place] [id number] [place] [address] 05480- 2235 Jan, [facility] [place] [id number] [place] [address] 37717- 5368 Jan, Mood disorder F39 [facility] [place] [id number] [place] [address] 46151- 0650 Dec, Nail, ingrown L60.0 [facility] [place] [id number] [place] [address] 21943- 0445 Dec, Nail, ingrown L60.0 [facility] [place] [id number] [place] [address] 76628- 1391 Nov, Mood disorder F39 and Anxiety F41.9 [facility] [place] [id number] [place] [address] 37615- 1535 Nov, Sinus drainage J34.89 ; Hot flashes R23.2 ; Anxiety F41.9 and Diabetes type 2, controlled E11.9 [facility] [place] [id number] [place] [address] 03995- 8483 Nov, Nail, ingrown L60.0 [facility] [place] [id number] [place] [address] 53253- 0518 Oct, Anxiety F41.9 and Mood disorder F39 [facility] [place] [id number] [place] [address] 08929- 1767 Oct, Nail, ingrown L60.0 and Anxiety F41.9 [facility] [place] [id number] [place] [address] 23375- 1488 Oct, Lupus erythematosus L93.0 [facility] [place] [id number] [place] [address] 73530- 3383 September, [facility] [place] [id number] [place] [address] 04128- 6210 September, [facility] [place] [address], [place] [address]- 4918 September, Lupus erythematosus L93.0 [facility] [place] [id number] [place] [address] 19612- 1341 Aug, [facility] [place] [id number] [place] [address] 64119- 1861 Aug, Mood disorder F39 and Anxiety F41.9 [facility] [place] [id number] [place] [address] 60736- 3042 Aug, Lupus erythematosus L93.0 ; Diabetes type 2, controlled E11.9 and Localized edema R60.0 [facility] [place] [id number] [place] [address] 82818- 5821 Aug, [facility] [place] [id number] [place] [address] 30235- 1623 Jul, Anxiety F41.9 and Mood disorder F39 [facility] [place] [id number] [place] [address] 53105- 5460 Jul, Diabetes type 2, controlled E11.9 [facility] [place] [id number] [place] [address] 33685- 0262 Jun, Anxiety F41.9 [facility] [place] [id number] [place] [address] 93725- 8113 May, [facility] [place] [id number] [place] [address] 66903- 6219 May, [facility] [place] [id number] [place] [address] 10938- 5386 May, Nausea R11.0 ; Other chronic pain G89.29 and Pain in right knee M25.561 [facility] [place] [address], [place] [address]- 8662 May, [facility] [place] [id number] [place] [address] 00920- 8104 Apr, Tear of medial meniscus of right knee, current, unspecified tear type, subsequent encounter S83.241D and Tear of lateral meniscus of right knee, current, unspecified tear type, subsequent encounter S83.281D [facility] [place] [id number] [place] [address] 52250- 9150 Apr, Anxiety F41.9 and Mood disorder F39 [facility] [place] [id number] [place] [address] 70908- 1760 Apr, Anxiety F41.9 [facility] [place] [id number] [place] [address] 50151- 1484 Apr, [place] [address] [place] [id number] [place] [address] 17805- 9397 Mar, [place] [address] [place] [id number] [place] [address] 35211- 2938 Mar, Lupus erythematosus L93.0 and Diabetes type 2, controlled E11.9 [place] [address] [place] [id number] [place] [address] 30756- 6611 Mar, Mood disorder F39 [place] [address] [place] [id number] [place] [address] 15542- 0574 Mar, Tear of lateral meniscus of right knee, current, unspecified tear type, initial encounter S83.281A and Osteoarthritis of right knee, unspecified osteoarthritis type M17.9 [facility] [place] [id number] [place] [address] 84097- 9089 Mar, [facility] [place] [id number] [place] [address] 55156- 1013 Feb, Mood disorder F39 [facility] [place] [id number] [place] [address] 38255- 7482 Feb, Rash R21 [facility] [place] [id number] [place] [address] 35468- 7937 Feb, [facility] [place] [id number] [place] [address] 40516- 7873 Jan, Other chronic pain G89.29 and Muscle spasm M62.838 [facility] [place] [id number] [place] [address] 66737- 4552 Jan, Mood disorder F39 [facility] [place] [id number] [place] [address] 45577- 1322 Jan, Pain in right knee M25.561 ; Other chronic pain G89.29 and Muscle spasm M62.838 [facility] [place] [id number] [place] [address] 04135- 0200 Dec, [facility] [place] [id number] [place] [address] 89282- 3478 Dec, [facility] [place] [id number] [place] [address] 81514- 5498 Nov, [facility] [place] [id number] [place] [address] 35321- 3640 Nov, Mood disorder F39 [facility] [place] [id number] [place] [address] 92518- 6966 Nov, Diabetes type 2, controlled E11.9 ; Bronchitis J40 ; Edema, unspecified type R60.9 ; Weight gain R63.5 and Right knee pain, unspecified chronicity M25.561 [place] [id number] [place] [address] 22410- 1573 Oct, Mood disorder F39 [facility] [place] [id number] [place] [address] 39328- 2949 Oct, Lupus erythematosus L93.0 and Bilateral edema of lower extremity R60.0 [place] [address] [place] [id number] [place] [address] 53984- 1466 Oct, Mood disorder F39 and Anxiety F41.9 [place] [id number] [place] [address] 86825- 3363 September, Mood disorder F39 ; Anxiety F41.9 and Anger reaction R45.4 [place] [address], [place] [address]- 2178 September, Diabetes type 2, controlled E11.9 ; Edema, unspecified type R60.9 and Fatigue, unspecified type R53.83 [facility] [place] [id number] [place] [address] 90826- 7213 Aug, Mood disorder F39 and Generalized anxiety disorder F41.1 [facility] [place] [id number] [place] [address] 60777- 1711 Aug, Diabetes type 2, controlled E11.9 ; Sinusitis J32.9 and Mood disorder F39 [facility] [place] [id number] [place] [address] 48400- 6909 Aug, Lupus erythematosus L93.0 [facility] [place] [id number] [place] [address] 86675- 9130 Aug, [facility] [place] [id number] [place] [address] 35677- 3418 Aug, [facility] [place] [id number] [place] [address] 80496- 6707 Jul, Diabetes type 2, controlled E11.9 [facility] [place] [id number] [place] [address] 73599- 2227 Jul, Mood disorder F39 and Depression F32.9 [facility] [place] [id number] [place] [address] 00516- 7759 Jul, Lupus erythematosus L93.0 and Diabetes type 2, controlled E11.9 [facility] [place] [address], [place] [address]- 4016 Jul, Mood disorder F39 and Anxiety F41.9 [facility] [place] [id number] [place] [address] 284[phone] Jul, [facility] [place] [id number], [place] [address] Jul, [facility] [place] [id number] [place] [phone] Jun, Mood disorder F39 and Anxiety F41.9 [facility] [place] [id number] [place] [phone] Jun, Mood disorder F39 [facility] [place] [id number] [place] [address]- [phone] Jun, [facility] [place] [id number] [place] [address]- [phone] Jun, [facility] [place] [id number] [place] [phone] Jun, Mood disorder F39 [facility] [place] [id number] [place] [address] [phone] Jun, [facility] [place] [id number] [place] [address]06- [address]783 May, [facility] [place] [id number] [place] [address] [phone] May, [facility] [place] [id number] [place] [address] [phone]- [phone] May, [facility] [place] [id number] [place] [address] [phone]- 2411 May, [facility] [place] [id number] [place] [address]- 9168 May, Anxiety F41.9 ; Dermatomyositis M33.90 and Diabetes type 2, controlled E11.9 [facility] [id number] [place] [phone] May, Sinusitis J32.9 and Cough R05 [facility] [place], [facility] [id number] [place] [address] 97115- 4306 May, Mood disorder F39 [facility] [place] [id number] [place] [address] 23564- 1773 May, Adjustment disorder with mixed anxiety and depressed mood F43.23 [facility] [place] [address], [place] [address] 6144 Apr, [facility] [place] [id number] [place] [address] 746460- 4356 Apr, [facility] [place] [id number] [place] [address] 88971- 8496 Apr, Generalized anxiety disorder F41.1 and Mood disorder F39 [facility] [place] [id number] [place] [address] 32434- 3738 Mar, [facility] [place] [id number] [place] [address] 09921- 8964 Mar, [facility] [place] [id number] [place] [address] 02537- 8773 Mar, [facility] [place] [id number] [place] [address] 24949- 7105 Mar, Mood disorder F39 [facility] [place] [id number] [place] [address] 93678- 8684 Feb, [facility] [place] [id number] [place] [address] 49209- 9050 Feb, Diabetes E11.9 and Bronchitis J40 [facility] [place] [id number] [address] 6141 Feb, [facility] [place] [id number] [place] [address] 61851- 7827 Feb, [facility] [place] [id number] [place] [address] 63405- 3068 Feb, Major depression, recurrent, full remission F33.42 and KELLY ( generalized anxiety disorder) F41.1 [facility] [place] [address], [place] [address] 1378 Feb, [facility] [place] [id number] [place] [address] 04279- 3707 Feb, Single major depressive episode, in partial or unspecified remission F32.5 [id number] [place] [address] 13815- 7631 Jan, Fatigue 780.79 [address] [place] [id number] [place] [address] 42492- 7917 Jan, [address] [id number] [place] [address] 99373- 0927 Jan, Diabetes with other specified manifestations, type II or unspecified type, not stated as uncontrolled 250.80 [address] [place] [id number] [place] [address] 11496- 5904 Jan, [address] [id number] [place] [address] 36382- 9209 Dec, Hot flashes 627.2 ; Memory loss 780.93 and Joint pain 719.40 [id number] [place] [address] 51817- 0362 Dec, Major depression, recurrent 296.30 ; Generalized anxiety disorder 300.02 ; Adjustment disorder with depressed mood 309.0 and No condition on Iliamna II V71.09 [address] [place] [id number] [place] [address] 49372- 4956 Dec, [address] [id number] [place] [address] 00450- 1145 Nov, Cognitive and neurobehavioral dysfunction 294.9 ; Major depressive disorder, recurrent episode, moderate degree 296.32 and Anxiety state , unspecified 300.00 [id number] [place] [address] 28004- 0839 Nov, [id number] [place] [address] 23718- 4357 Nov, Bronchitis 490 and Diabetes with other specified manifestations, type II or unspecified type, not stated as uncontrolled 250.80 [id number] [place] [address] 49766- 3648 Nov, Major depressive disorder, recurrent episode, moderate 296.32 and Anxiety disorder, unspecified 300.[address] [place] [address] 87881- 1398 Nov, Anxiety, generalized 300.02 ; Intermittent explosive disorder 312.34 ; No condition on Iliamna II V71.09 and No condition on axis III V71.09 [id number] [place] [address] 56207- 3571 Oct, Diabetes with other specified manifestations, type II or unspecified type, not stated as uncontrolled 250.80 ; Urinary tract infection, site not specified 599.0 and Bronchitis [id number] [place] [address] 86576- 4930 Oct, Intermittent explosive disorder 312.34 ; Bipolar 1 disorder , depressed, moderate 296.52 ; Major depression, chronic 296.20 ; No condition on Iliamna II V71.09 and No condition on axis III V71.09 [id number] [place] [address] 79039- 9788 Oct, Major depressive disorder, recurrent episode, moderate 296.32 ; Anxiety state 300.00 ; Cognitive decline 294.9 and No condition on Iliamna II V71.09 [address] [place] [address] 76168- 2888 Oct, [id number] [place] [address] 07693- 9524 Oct, Major depressive disorder, recurrent episode, moderate 296.32 ; Anxiety disorder, unspecified 300.00 and Persistent disorder of initiating or maintaining sleep 307.42 [address] [place] [address] 77704- 5969 September, Diabetes with other specified manifestations, type II or unspecified type, not stated as uncontrolled 250.80 ; Memory loss 780.93 and Cognitive complaints 799.[address] [place] [address] 00661- 7610 September, No condition on Iliamna II V71.09 ; Major depression, recurrent 296.30 and Persistent mood [affective] disorder, unspecified 296.90 [facility] [place] [address] [place] [address]- 1693 28 Aug, 2014 [facility] [id number] [place] [address]- 0397 14 Aug, 2014 [facility] [place] [address], [place] [address]- 3693 Aug, [facility] [place] [id number] 9348 Jul, [facility] [place] [address], [place] [address]- 8746 Jul, [facility] [place] [address] 2509 Jul, [facility] [place] [address] 2205 Jul, [facility] [place] [address], [place] [address]- 4741 Jul, [facility] [place] [address], [place] [address]- 6543 Jun, [facility] [place] [address], [place] [address]- 3247 Jun, [facility] [place] [address], [place] [address]- 3850 Jun, [facility] [place] [address], [place] [address]- 4893 Jun, [facility] [place] [address], [place] [address]- 3245 Jun, [facility] [address], [place] [address]- 8526 Jun, [facility] [place] [address], [place] [address]- 4357 Jun, 2014 [facility] [place] [facility] [address] [id number] [place] [address]- 9521 Jun, 2014 [facility] [place] [facility] [address] [id number] [place] [address]- 9771 Jun, 2014 [facility] [place] [facility] [address] [facility] [id number] [place] [address]- 8136 Jun, 2014 [facility] [place] [facility] [address] [id number] [place] [address]- 4583 Jun, 2014 [facility] [place] [facility] [address] [id number] [place] [address]- 2728 Jun, 2014 [facility] [place] [facility] [address] [facility] [id number] [place] [address]- 3331 Jun, 2014 [facility] [place] [facility] [id number] [address]- 6563 May, [facility] [place] [facility] [address] [id number] [place] [address]- 4841 May, [facility] [place] [facility] [address] [id number] [place] [address]- 5797 Apr, [facility] [place] [facility] [address] [facility] [id number] [place] [address]- 0298 Apr, [facility] [place] [facility] [address] [id number] [place] [address]- 3520 Apr, [facility] [place] [facility] [address] [id number] [place] [address]- 4435 Apr, [facility] [place] [facility] [address] [id number] [place] [address]- 3583 Apr, [facility] [place] [facility] [address] [facility] [id number] [place] [address]- 1564 Apr, [facility] [place] [facility] [address] [facility] [id number] [place] [address]- 3668 Apr, [facility] [place] [facility] [address] [id number] [place] [address]- 9357 Apr, [facility] [address] [id number] [place] [address]- 6126 Apr, [facility] [place] [facility] [address] [id number] [place] [address]- 7816 Apr, [facility] [place] [facility] [address] [id number] [place]- 9006 Apr, [facility] [place] [facility] [address] [id number] [place] [address]- 2727 Apr, [facility] [place] [facility] [address] [id number] [place] 9553 Apr, [facility] [place] [facility] [address] [id number] [place] [address]- 1336 Apr, [facility] [place] [facility] [address] [id number] [place] [address]- 5956 Apr, [facility] [place] [facility] [address] [id number] [place] [address]- 6685 Apr, [facility] [place] [facility] [address] [id number] [place] [address]- 4169 Apr, [facility] [place] [facility] [address] [id number] [place] [address]- 6879 Apr, [facility] [place] [facility] [address] [id number] [place] [address]- 9160 Apr, [facility] [place] [facility] [address] [id number] [place] [address]- 8337 Apr, [facility] [place] [facility] [address] [id number] [place] [address]- 0890 Mar, [facility] [place] [facility] [address] [id number] [place] [address]- 3296 Mar, [facility] [place] [facility] [address] [id number] [place] 4635 Mar, [facility] [place] [facility] [address] [id number] [place] [address]- 7607 Mar, [facility] [place] [facility] [address] [id number] [place] [address]- 4706 Mar, [facility] [place] [facility] [address] [id number] [place] [address]- 9889 Mar, [facility] [place] [facility] [address] [id number] [place] [address]- 9349 Mar, [facility] [place] [facility] [address] [id number] [place] [address]- 4577 Mar, [facility] [place] [facility] [address] [id number] [place] [address]- 9313 Mar, [facility] [place] [facility] [address] [id number] [place] [address]- 2675 Mar, [facility] [place] [facility] [address] [id number] [place] [address]- 5228 Mar, [facility] [place] [facility] [address] [id number] [place] [address]- 7934 Mar, [facility] [place] [facility] [address] [id number] [place] [address]- 6225 Mar, [facility] [place] [facility] [address] [id number] [place] [address]- 3793 Feb, [facility] [place] [facility] [address] [id number], [place] [address]- 9771 Feb, [facility] [place] [facility] [address] [id number] [place] [address]- 3867 30 Feb, 2014 [facility] [place] [facility] [address] [id number] [place] [address]- 3060 Feb, [facility] [place] [facility] [address] [id number] [place] [address]- 2435 Feb, [facility] [place] [facility] [address] [id number] [place] [address]- 9788 Feb, [facility] [place] [facility] [address] [id number] [place] [address]- 7652 Feb, [facility] [place] [facility] [address] [id number] [place] [address]- 2507 Feb, [facility] [place] [facility] [address] [id number] [place] [address]- 0500 Feb, [facility] [place] [facility] [address] [id number] [place] [address]- 0992 Feb, [facility] [place] [facility] [address] [id number] [place] [address]- 2293 Feb, [facility] [place] [facility] [address] [id number] [place] [address]- 2057 Feb, [facility] [place] [facility] [address] [id number] [place] [address]- 9727 Feb, [facility] [place] [facility] [address] [id number] [place] [address]- 4615 Feb, [facility] [place] [facility] [address] [id number] [place] [address]- 8592 07 Feb, 2014 [facility] [place] [facility] [address] [id number] [place] [address]- 1814 10 Jan, 2014 [facility] [place] [facility] [address] [id number] [place] [address]- 9615 08 Jan, 2013 [facility] [place] [facility] [address] [id number], [place] [address]- 9209 08 Jan, 2013 [facility] [place] [facility] [address] [id number] [place] [address]- 6830 08 Jan, 2013 [facility] [place] [facility] [address] [id number] [place] [address]- 2747 08 Jan, 2013 [facility] [place] [facility] [address] [id number] [place] [address]- 5651 Dec, [facility] [place] [facility] [address] [id number] [place] [address]- 9096 Dec, [facility] [place] [facility] [address] [id number] [place] [address]- 5213 Dec, [facility] [place] [facility] [address] [id number] [place] [address]- 5431 Dec, [facility] [place] [facility] [address] [id number] [place] [address]- 2622 Nov, [facility] [place] [facility] [address] [id number] [place] [address]- 3961 Nov, [facility] [place] [facility] [address] [id number] [place] [address]- 2712 Nov, [facility] [place] [facility] [address] [id number] [place] [address]- 5323 Nov, [facility] [place] [facility] [address] [id number] [place] [address]- 2970 Nov, [facility] [place] [facility] [address] [id number] [place] [address]- 4132 Nov, [facility] [place] [facility] [address] [id number] [place] [address]- 6890 Nov, [facility] [place] [facility] [address] [id number] [place] [address]- 2915 Nov, [facility] [place] [facility] [address] [id number] [place] [address]- 5058 Nov, [facility] [place] [facility] [address] [id number] [place] [address]- 0936 Nov, [facility] [place] [facility] [address] [id number] [place] [address]- 4824 Oct, [facility] [place] [facility] [address] [id number] [place] [address]- 2772 Oct, [facility] [place] [facility] [address] [id number] [place] [address]- 3520 September, [facility] [place] [facility] [address] [id number] [place] [address]- 4205 September, [facility] [place] [facility] [address] [id number] [place] [address]- 8976 September, [facility] [place] [facility] [address] [id number] [place] [address]- 4316 September, [facility] [place] [facility] [address] [id number] [place] [address]- 5968 Aug, [facility] [place] [facility] [address] [id number] [place] [address]- 5433 Aug, [facility] [place] [facility] [address] [id number] [place] [address]- 4072 Aug, [facility] [place] [facility] [address] [id number] [place] [address]- 4764 Jul, [facility] [place] [facility] [address] [id number] [place] [address]- 3453 Jul, [facility] [place] [facility] [address] [id number] [place] [address]- 9762 Jul, [facility] [place] [facility] [address] [id number] [place] [address]- 2860 Jul, [facility] [place] [facility] [address] [id number] [place] [address]- 5599 May, [facility] [place] [facility] [address] [id number], [place] [address]- 1879 May, [facility] [place] [facility] [address] [id number] [place] [address]- 2695 May, [facility] [place] [facility] [address] [id number] [place] [address]- 1134 Mar, [facility] [place] [facility] [address] [id number] [place] [address]- 8716 Mar, [facility] [place] [facility] [address] [id number] [place] [address]- 9762 Mar, [facility] [place] [facility] [address] [id number] [place] [address]- 5861 Mar, [facility] [place] [facility] [address] [id number] [place] [address]- 9690 Feb, [facility] [place] [facility] [address] [id number] [place] [address]- 8643 Feb, [facility] [place] [facility] [address] [id number] [place] [address] 2543 Feb, [facility] [place] [facility] [address] [id number] [place] [address]- 5752 Jan, [facility] [place] [facility] [address] [id number] [place] [address]- 7184 Jan, [facility] [place] [facility] [address] [id number] [place] [address]- 3281 Jan, [facility] [place] [facility] [address] [id number] [place] [address]- 3250 Dec, [facility] [place] [facility] [address] [id number] [place] [address]- 9565 Dec, [facility] [place] [facility] [address] [id number] [place] [address]- 1670 Dec, [facility] [place] [facility] [address] [id number] [place] [address]- 5969 Dec, [facility] [place] [facility] [address] [id number] [place] [address]- 5121 Nov, [facility] [place] [facility] [address] [id number] [place] [address]- 1761 Oct, [facility] [place] [facility] [address] [id number] [place] [address] 2546 Oct, [facility] [place] [facility] [address] [id number] [place] [address]- 9822 September, [facility] [place] [facility] [address] [id number] [place] [address]- 5508 September, [facility] [address] [id number] [place] [address]- 0363 September, [facility] [address] [id number] [place] [address]- 5547 Aug, [facility] [address] [id number] [place] [address]- 6333 Aug, [facility] [address] [id number] [place] [address]- 2906 Aug, [facility] [address] [id number] [place] [address]- 4093 Aug, [facility] [address] [id number] [place] [address]- 0000 Jul, [facility] [address] [id number] [place] [address]- 3765 Jul, [facility] [address] [id number] [place] [address]- 1685 Jul, [facility] [address] [id number] [place] [address]- 0427 15 Jul, 2012 [facility] [address] [id number] [place] [address]- 1439 14 Jul, 2012 [facility] [address] [id number], [place] [address]- 7613 Jul, [facility] [address] [id number] [place] [address]- 4581 Jul, [facility] [address] [id number] [place] [address] Jun, [facility] [address] [id number] [place] [address] Jun, [facility] [address] [id number], [place] [address] 05 Jun, 2012 [facility] [address] [id number] [place] [address] Jun, [facility] [address] [id number] [place] [address] May, [facility] [address] [id number] [place] [address] May, [facility] [place] [facility] [address] [id number] [place] [address] May, [facility] [address] [id number] [place] [address] May, [facility] [address] [id number] [place] [address] May, [facility] [address] [facility] [id number] [place] [address] Apr, [facility] [address] [id number] [place] [address] Apr, [facility] [address] [id number] [place] [address] Mar, [facility] [address] [facility] [id number] [place] [address] Mar, [facility] [address] [id number] [place] [address] Mar, [facility] [place] [facility] [address] [id number], [place] [address] Mar, [facility] [place] [facility] [address] [id number] [place] [address] Mar, [facility] [place] [facility] [address] [id number] [place] [address] Mar, [facility] [place] [facility] [address] [facility] [id number], [place] [address] Mar, [facility] [place] [facility] [address] [id number] [place] [address] Mar, [facility] [place] [facility] [address] [id number] [place] [address] Mar, [facility] [place] [facility] [address] [id number] [place] [address] Mar, [facility] [place] [facility] [address] [id number] [place] [address] Feb, [facility] [place] [facility] [address] [id number] [place] [address] Feb, [facility] [place] [facility] [address] [id number] [place] [address] Feb, [facility] [place] [facility] [address] [id number] [place] [address] Feb, [facility] [place] [facility] [address] [id number] [place] [address] Feb, [facility] [place] [facility] [address] [id number] [place] [address] Feb, [facility] [place] [facility] [address] [id number] [place] [address] Feb, [facility] [place] [facility] [address] [id number] [place] [address] Jan, [facility] [place] [facility] [address] [id number] [place] [address] Jan, [facility] [place] [facility] [address] [id number] [place] [address] Dec, [facility] [place] [facility] [address] [id number] [place] [address] Dec, [facility] [place] [facility] [address] [id number] [place] [address] Dec, [facility] [place] [facility] [address] [id number] [place] [address] Dec, [facility] [place] [facility] [address] [id number] [place] [address] Dec, [facility] [place] [facility] [address] [id number] [place] [address] Dec, [facility] [place] [facility] [address] [id number] [place] [address] Nov, [facility] [place] [facility] [address] [id number] [place] [address] Nov, [facility] [place] [facility] [address] [id number] [place] [address] Nov, [facility] [place] [facility] [address] [id number] [place] [address] Nov, [facility] [place] [facility] [address] [id number] [place] [address] September, [facility] [place] [facility] [address] [id number] [place] [address] September, [facility] [place] [facility] [address] [id number] [place] [address] September, [facility] [place] [facility] [address] [id number] [place] [address] Jul, [facility] [place] [facility] [address] [id number] [place] [address] Jun, [facility] [place] [facility] [address] [id number] [place] [address] Jun, [facility] [place] [facility] [address] [id number] [place] [address] Jun, [facility] [place] [facility] [address] [id number] [place] [address] Apr, [facility] [place] [facility] [address] [id number] [place] [address] Mar, [facility] [place] [facility] [address] [id number] [id number] Mar, 2011 [facility] [place] [address] [id number] [address] Feb, [facility] [place] [id number] [address] Feb, [facility] [place] [id number], [place] [address] Feb, [facility] [place] [id number], [place] [address] Jul, [facility] [place] [address], [place] [address] Feb, IMMUNIZATIONS No Known Immunizations SOCIAL HISTORY Never Assessed REASON FOR VISIT Refill Request PLAN OF CARE VITAL SIGNS MEDICATIONS Medication [...]
--- OUTSIDE RECORDS SUMMARY | 2018-05-09 23:32 | XMS REPORT | Continuity of Care Document ---
Author Author [facility] Address Unknown Phone Unavailable Allergies Active Description Code Type Severity Reaction Onset Reported/Identified Relationship to Patient Clinical Status Yes aspirin Drug Allergy N/A N/A 06/01/2009 Yes aspirin Drug Allergy 06/01/2009 Yes aspirin [id number] Drug Allergy Severe N/A 11/12/2010 Yes flu vaccine Drug Allergy 02/23/2011 Yes Latex, Natural Rubber Drug Allergy N/A N/A 03/29/2012 Yes Latex, Natural Rubber Drug Allergy 03/29/2012 Yes latex [id number] Drug Allergy Unknown N/A 02/03/2018 Yes sertraline [id number] Drug Allergy Unknown N/A 02/03/2018 Medications There is no data. Problems Date Dx Coded Attending Type Code Diagnosis Diagnosed By 03/17/2008 LINDSAY STRONG DO 372.30 Conjunctivitis 03/17/2008 372.30 Conjunctivitis 03/17/2008 372.30 Conjunctivitis 03/17/2008 MACY TAMAYO APRN 372.30 Conjunctivitis 03/17/2008 MACY TAMAYO APRN 372.30 Conjunctivitis 03/17/2008 LAINA STANLEY MD 372.30 Conjunctivitis 03/17/2008 372.30 Conjunctivitis 03/17/2008 MACY TAMAYO APRN 372.30 Conjunctivitis 03/17/2008 372.30 Conjunctivitis 03/17/2008 372.30 Conjunctivitis 03/17/2008 372.30 Conjunctivitis 03/17/2008 MACY TAMAYO APRN 372.30 Conjunctivitis 03/17/2008 MACY TAMAYO APRN 372.30 Conjunctivitis 03/17/2008 MACY TAMAYO APRN 372.30 Conjunctivitis 03/17/2008 MACY TAMAYO APRN 372.30 Conjunctivitis 03/17/2008 MACY TAMAYO APRN 372.30 Conjunctivitis 03/17/2008 MACY TAMAYO APRN 372.30 Conjunctivitis 03/17/2008 MACY TAMAYO APRN 372.30 Conjunctivitis 03/17/2008 MACY TAMAYO APRN 372.30 Conjunctivitis 03/17/2008 BERE SAEZ, SHERRIE 372.30 Conjunctivitis 03/17/2008 BERE SAEZ, SHERRIE 372.30 Conjunctivitis 03/17/2008 MACY TMAAYO APRN T 372.30 Conjunctivitis 03/17/2008 MAXWELL PHD, MARLENE Dickey 372.30 Conjunctivitis 03/17/2008 MAXWELL PHD, MARLENE Dickey 372.30 Conjunctivitis 03/17/2008 SHERRIE BLACKBURN MD 372.30 Conjunctivitis 03/17/2008 BERE SAEZ, SHERRIE 372.30 Conjunctivitis 03/17/2008 DHARMESH APRN, MOISES A 372.30 Conjunctivitis 03/17/2008 MACY TAMAYO APRN T 372.30 Conjunctivitis 03/17/2008 RACHELLE REALTY SPECIALIST, YUKI 372.30 Conjunctivitis 03/17/2008 MACY TAMAYO APRN T 372.30 Conjunctivitis 03/17/2008 SHERRIE BLACKBURN MD 372.30 Conjunctivitis 03/17/2008 RACHELLE REALTY SPECIALIST, YUKI 372.30 Conjunctivitis 03/17/2008 MAXWELL PHD, MARLENE Dickey 372.30 Conjunctivitis 03/17/2008 RACHELLE REALTY SPECIALIST, YUKI 372.30 Conjunctivitis 03/17/2008 MACY TAMAYO APRN T 372.30 Conjunctivitis 03/17/2008 MACY TAMAYO APRN T 372.30 Conjunctivitis 03/17/2008 RACHELLE REALTY SPECIALIST, YUKI 372.30 Conjunctivitis 06/01/2009 LINDSAY STRONG DO 493.92 Asthma (acute) Exacerbation 06/01/2009 493.92 Asthma (acute ) Exacerbation 06/01/2009 493.92 Asthma (acute ) Exacerbation 06/01/2009 MACY TAMAYO APRN 493.92 Asthma (acute) Exacerbation 06/01/2009 MACY TAMAYO APRN 493.92 Asthma (acute) Exacerbation 06/01/2009 LAINA STANLEY MD 493.92 Asthma (acute) Exacerbation 06/01/2009 493.92 [...] APRN T 493.92 Asthma (acute) Exacerbation 06/01/2009 SHERRIE BLACKBURN MD 493.92 Asthma (acute) Exacerbation 06/01/2009 SHERRIE BLACKBURN MD 493.92 Asthma (acute) Exacerbation 06/01/2009 MACY TAMAYO APRN 493.92 Asthma (acute) Exacerbation 06/01/2009 MAXWELL PHD, MARLENE Dickey 493.92 Asthma (acute) Exacerbation 06/01/2009 MAXWELL PHD, MARLENE Dickey 493.92 Asthma (acute) Exacerbation 06/01/2009 SHERRIE BLACKBURN MD 493.92 Asthma (acute) Exacerbation 06/01/2009 SHERRIE BLACKBURN MD 493.92 Asthma (acute) Exacerbation 06/01/2009 MOISES BARROSO APRN 493.92 Asthma (acute) Exacerbation 06/01/2009 MACY TAMAYO APRN T 493.92 Asthma (acute) Exacerbation 06/01/2009 RACHELLE MG, YUKI 493.92 Asthma (acute) Exacerbation 06/01/2009 MACY TAMAYO APRN T 493.92 Asthma (acute) Exacerbation 06/01/2009 SHERRIE BLACKBURN MD 493.92 Asthma (acute) Exacerbation 06/01/2009 RACHELLE MG, YUKI 493.92 Asthma (acute) Exacerbation 06/01/2009 MAXWELL NIETO, MARLENE Dickey 493.92 Asthma (acute) Exacerbation 06/01/2009 RACHELLE MG, YUKI 493.92 Asthma (acute) Exacerbation 06/01/2009 MACY TAMAYO APRN T 493.92 Asthma (acute) Exacerbation 06/01/2009 MACY TAMAYO APRN T 493.92 Asthma (acute) Exacerbation 06/01/2009 RACHELLE MG YUKI 493.92 Asthma (acute) Exacerbation 07/25/2009 LINDSAY STRONG DO 380.10 Otitis Externa 07/25/2009 LINDSAY STRONG DO K 380.4 Cerumen Impaction 07/25/2009 LIGIA VALLES, LINDSAY K 692.9 Dermatitis 07/25/2009 380.10 Otitis Externa 07/25/2009 [...] APRN 692.9 Dermatitis 07/25/2009 LIZETH SAEZ, LAINA M 380.10 Otitis Externa 07/25/2009 LIZETH SAEZ, LAINA M 380.4 Cerumen Impaction 07/25/2009 LIZETH SAEZ, LAINA M 692.9 Dermatitis 07/25/2009 380.10 Otitis Externa 07/25/2009 [...] MACY TAMAYO APRN 380.4 Cerumen Impaction 07/25/2009 BELKIS REALTY SPECIALIST, MACY T 692.9 Dermatitis 07/25/2009 BELKIS KOROMAN, MACY T 380.10 Otitis Externa 07/25/2009 BELKIS KOROMAN, MACY T 380.4 Cerumen Impaction 07/25/2009 BELKIS KOROMAN, MACY T 692.9 Dermatitis 07/25/2009 BELKIS REALTY SPECIALIST, MACY T 380.10 Otitis Externa 07/25/2009 BELKIS KOROMAN, MACY T 380.4 Cerumen Impaction 07/25/2009 BELKIS KOROMANMACY T 692.9 Dermatitis 07/25/2009 BELKIS REALTY SPECIALIST, MACY T 380.10 Otitis Externa 07/25/2009 BELKIS KOROMAN, MACY T 380.4 Cerumen Impaction 07/25/2009 BELKIS KOROMANMACY T 692.9 Dermatitis 07/25/2009 BELKIS KOROMAN, MACY T 380.10 Otitis Externa 07/25/2009 BELKIS KOROMAN, MACY T 380.4 Cerumen Impaction 07/25/2009 MACY TAMAYO APRN T 692.9 Dermatitis 07/25/2009 MACY TAMAYO APRN T 380.10 Otitis Externa 07/25/2009 BELKIS MG, MACY T 380.4 Cerumen Impaction 07/25/2009 BELKIS MG, MACY T 692.9 Dermatitis 07/25/2009 BELKIS MG, MACY T 380.10 Otitis Externa 07/25/2009 BELKIS MG, MACY T 380.4 Cerumen Impaction 07/25/2009 MACY TAMAYO APRN T 692.9 Dermatitis 07/25/2009 MACY TAMAYO APRN T 380.10 Otitis Externa 07/25/2009 MACY TAMAYO APRN T 380.4 Cerumen Impaction 07/25/2009 MACY TAMAYO APRN T 692.9 Dermatitis 07/25/2009 SHERRIE BLACKBURN MD 380.10 Otitis Externa 07/25/2009 SHERRIE BLACKBURN MD 380.4 Cerumen Impaction 07/25/2009 SHERRIE BLACKBURN MD 692.9 Dermatitis 07/25/2009 SHERRIE BLACKBURN MD 380.10 Otitis Externa 07/25/2009 SHERRIE BLACKBURN MD 380.4 Cerumen Impaction 07/25/2009 SHERRIE BLACKBURN MD 692.9 Dermatitis 07/25/2009 MACY TAMAYO APRN T 380.10 Otitis Externa 07/25/2009 MACY TAMAYO APRN 380.4 Cerumen Impaction 07/25/2009 MACY TAMAYO APRN 692.9 Dermatitis 07/25/2009 MAXWELL PHD, MARLENE Dickey [...] 07/25/2009 BERE SAEZ, SHERRIE 692.9 Dermatitis 07/25/2009 MOISES BARROSO APRN A 380.10 Otitis Externa 07/25/2009 DHARMESH MG, MOISES A 380.4 Cerumen Impaction 07/25/2009 MOISES BARROSO APRN A 692.9 Dermatitis 07/25/2009 MACY TAMAYO APRN T 380.10 Otitis Externa 07/25/2009 MACY TAMAYO APRN 380.4 Cerumen Impaction 07/25/2009 MACY TAMAYO APRN 692.9 Dermatitis 07/25/2009 RACHELLE MG YUKI 380.10 Otitis Externa 07/25/2009 RACHELLE MG YUKI 380.4 Cerumen Impaction 07/25/2009 RACHELLE MG, YUKI 692.9 Dermatitis 07/25/2009 MACY TAMAYO APRN 380.10 Otitis Externa 07/25/2009 MACY TAMAYO APRN 380.4 Cerumen Impaction 07/25/2009 MACY TAMAYO APRN 692.9 Dermatitis 07/25/2009 SHERRIE BLACKBURN MD 380.10 Otitis Externa 07/25/2009 SHERRIE BLACKBURN MD 380.4 Cerumen Impaction 07/25/2009 SHERRIE BLACKBURN MD 692.9 Dermatitis 07/25/2009 RACHELLE MG, YUKI 380.10 Otitis Externa 07/25/2009 RACHELLE MG, YUKI 380.4 Cerumen Impaction 07/25/2009 YUKI BUSH APRN 692.9 Dermatitis 07/25/2009 MAXWELL PHD, MARLENE Dickey 380.10 Otitis Externa 07/25/2009 MAXWELL PHD, MARLENE Dickey 380.4 Cerumen Impaction 07/25/2009 MAXWELL PHD, MARLENE Dickey 692.9 Dermatitis 07/25/2009 RACHELLE MG, YUKI 380.10 Otitis Externa 07/25/2009 RACHELLE MG, YUKI 380.4 Cerumen Impaction 07/25/2009 YUKI BUSH APRN 692.9 Dermatitis 07/25/2009 MACY TAMAYO APRN 380.10 Otitis Externa 07/25/2009 MACY TAMAYO APRN 380.4 Cerumen Impaction 07/25/2009 MACY TAMAYO APRN 692.9 Dermatitis 07/25/2009 MACY TAMAYO APRN 380.10 Otitis Externa 07/25/2009 MACY TAMAYO APRN 380.4 Cerumen Impaction 07/25/2009 MACY TAMAYO APRN 692.9 Dermatitis 07/25/2009 YUKI BUSH APRN 380.10 Otitis Externa 07/25/2009 YUKI BUSH APRN 380.4 Cerumen Impaction 07/25/2009 YUKI BUSH APRN 692.9 Dermatitis 07/27/2009 LINDSAY STRONG DO 691.8 Dermatitis Atopic Eczema 07/27/2009 691.8 Dermatitis Atopic Eczema 07/27/2009 691.8 Dermatitis Atopic Eczema 07/27/2009 MACY TAMAYO APRN 691.8 Dermatitis Atopic Eczema 07/27/2009 MACY TAMAYO APRN 691.8 Dermatitis Atopic Eczema 07/27/2009 LIZETH SAEZ, LAINA Christianson 691.8 Dermatitis Atopic Eczema 07/27/2009 691.8 Dermatitis [...] APRN T 691.8 Dermatitis Atopic Eczema 07/27/2009 BERE SAEZ, SHERRIE 691.8 Dermatitis Atopic Eczema 07/27/2009 BERE SAEZ, SHERRIE 691.8 Dermatitis Atopic Eczema 07/27/2009 MACY TAMAYO APRN 691.8 Dermatitis Atopic Eczema 07/27/2009 MAXWELL NIETO, MARLENE Dickey 691.8 Dermatitis Atopic Eczema 07/27/2009 MAXWELL PHD, MARLENE Dickey 691.8 Dermatitis Atopic Eczema 07/27/2009 SHERRIE BLACKBURN MD 691.8 Dermatitis Atopic Eczema 07/27/2009 BERE SAEZ, SHERRIE 691.8 Dermatitis Atopic Eczema 07/27/2009 MOISES BARROSO APRN 691.8 Dermatitis Atopic Eczema 07/27/2009 MACY TAMAYO APRN 691.8 Dermatitis Atopic Eczema 07/27/2009 RACHELLE MG, YUKI 691.8 Dermatitis Atopic Eczema 07/27/2009 MACY TAMAYO APRN 691.8 Dermatitis Atopic Eczema 07/27/2009 SHERRIE BLACKBURN MD 691.8 Dermatitis Atopic Eczema 07/27/2009 YUKI BUSH APRN 691.8 Dermatitis Atopic Eczema 07/27/2009 MAXWELL PHD, MARLENE Dickey 691.8 Dermatitis Atopic Eczema 07/27/2009 RACHELLE MG, YUKI 691.8 Dermatitis Atopic Eczema 07/27/2009 MACY TAMAYO APRN 691.8 Dermatitis Atopic Eczema 07/27/2009 MACY TAMAYO APRN 691.8 Dermatitis Atopic Eczema 07/27/2009 YARY BUSH APRNETTE 691.8 Dermatitis Atopic Eczema 08/26/2010 LINDSAY STRONG DO 719.46 Knee Pain 08/26/2010 LINDSAY STRONG DO 789.7 Colic 08/26/2010 719.46 Knee Pain 08/26/2010 789.7 Colic 08/26/2010 719.46 Knee Pain 08/26/2010 789.7 Colic 08/26/2010 MACY TAMAYO APRN 719.46 Knee Pain 08/26/2010 MACY TAMAYO APRN T 789.7 Colic 08/26/2010 MACY TAMAYO APRN T 719.46 Knee Pain 08/26/2010 MACY TAMAYO APRN 789.7 Colic 08/26/2010 LAINA STANLEY MD 719.46 Knee Pain 08/26/2010 LAINA STANLEY MD 789.7 Colic 08/26/2010 719.46 Knee Pain 08/26/2010 789.7 Colic 08/26/2010 MACY TAMAYO APRN 719.46 Knee Pain 08/26/2010 MACY TAMAYO APRN 789.7 Colic 08/26/2010 719.46 Knee Pain 08/26/2010 789.7 Colic 08/26/2010 719.46 Knee Pain 08/26/2010 789.7 Colic 08/26/2010 719.46 Knee Pain 08/26/2010 789.7 Colic 08/26/2010 MACY TAMAYO APRN 719.46 [...] APRN 789.7 Colic 08/26/2010 MACY TAMAYO APRN T 719.46 Knee Pain 08/26/2010 MACY TAMAYO APRN 789.7 Colic 08/26/2010 SHERRIE BLACKBURN MD 719.46 Knee Pain 08/26/2010 SHERRIE BLACKBURN MD 789.7 Colic 08/26/2010 SHERRIE BLACKBURN MD 719.46 Knee Pain 08/26/2010 SHERRIE BLACKBURN MD 789.7 Colic 08/26/2010 MACY TAMAYO APRN 719.46 Knee Pain 08/26/2010 MACY TAMAYO APRN 789.7 Colic 08/26/2010 MAXWELL PHD, MARLENE Dickey 719.46 Knee Pain 08/26/2010 MAXWELL PHD, MARLENE Dickey 789.7 Colic 08/26/2010 MAXWELL PHD, MARLENE Dickey 719.46 Knee Pain 08/26/2010 MAXWELL PHD, MARLENE Dickey 789.7 Colic 08/26/2010 SHERRIE BLACKBURN MD 719.46 Knee Pain 08/26/2010 SHERRIE BLACKBURN MD9.7 Colic 08/26/2010 SHERRIE BLACKBURN MD 719.46 Knee Pain 08/26/2010 SHERRIE BLACKBURN MD9.7 Colic 08/26/2010 MOISES BARROSO APRN A 719.46 Knee Pain 08/26/2010 MOISES BARROSO APRN A 789.7 Colic 08/26/2010 MACY TAMAYO APRN 719.46 Knee Pain 08/26/2010 MACY TAMAYO APRN 789.7 Colic 08/26/2010 RACHELLETAMY MG, YUKI 719.46 Knee Pain 08/26/2010 RACHELLE MG, YUKI 789.7 Colic 08/26/2010 MACY TAMAYO APRN 719.46 Knee Pain 08/26/2010 MACY TAMAYO APRN 789.7 Colic 08/26/2010 SHERRIE BLACKBURN MD 719.46 Knee Pain 08/26/2010 SHERRIE BLACKBURN MD.7 Colic 08/26/2010 RACHELLE REALTY SPECIALIST, YUKI 719.46 Knee Pain 08/26/2010 RACHELLE MG, YUKI 789.7 Colic 08/26/2010 MAXWELL NIETO, MARLENE Dickey 719.46 Knee Pain 08/26/2010 MAXWELL NIETO, MARLENE Dickey 789.7 Colic 08/26/2010 RACHELLE REALTY SPECIALIST, YUKI 719.46 Knee Pain 08/26/2010 RACHELLETAMY MG, YUKI 789.7 Colic 08/26/2010 MACY TAMAYO APRN 719.46 Knee Pain 08/26/2010 MACY TAMAYO APRN 789.7 Colic 08/26/2010 MACY TAMAYO APRN T 719.46 Knee Pain 08/26/2010 MACY TAMAYO APRN T 789.7 Colic 08/26/2010 RACHELLE MG, YUKI 719.46 Knee Pain 08/26/2010 RACHELLETAMY MG, YUKI 789.7 Colic 11/12/2010 Ot 401.9 HYPERTENSION NOS [...] TAMAYO APRN 401.9 HYPERTENSION (SYSTEMIC) 02/23/2011 LAINA STANLEY MD 250.02 DIABETES II UNCONTROLLED (UNCOMPLICATED) 02/23/2011 LAINA STANLEY MD 278.01 OBESITY, MORBID (BMI >40) 02/23/2011 LAINA STANLEY MD 401.9 HYPERTENSION (SYSTEMIC) 02/23/2011 250.02 DIABETES [...] PHD 278.01 OBESITY, MORBID (BMI >40) 02/23/2011 MAXWELL PHD, MARLENE Dickey 401.9 HYPERTENSION (SYSTEMIC) 02/23/2011 SHERRIE BLACKBURN MD 250.02 DIABETES II UNCONTROLLED (UNCOMPLICATED) 02/23/2011 SHERRIE BLACKBURN MD 278.01 OBESITY, MORBID (BMI >40) 02/23/2011 SHERRIE BLACKBURN MD 401.9 HYPERTENSION (SYSTEMIC) 02/23/2011 SHERRIE BLACKBURN MD 250.02 DIABETES II UNCONTROLLED (UNCOMPLICATED) 02/23/2011 SHERRIE BLACKBURN MD 278.01 OBESITY, MORBID (BMI >40) 02/23/2011 SHERRIE BLACKBURN MD 401.9 HYPERTENSION (SYSTEMIC) 02/23/2011 MOISES BARRSOO APRN A 250.02 DIABETES II UNCONTROLLED (UNCOMPLICATED) [...] YUKI BUSH APRN 401.9 HYPERTENSION (SYSTEMIC) 02/23/2011 MAXWELL NIETO, MARLENE Dickey 250.02 DIABETES II UNCONTROLLED (UNCOMPLICATED) 02/23/2011 MAXWELL NIETO, MARLENE Dickey 278.01 OBESITY, MORBID (BMI >40) 02/23/2011 MARLENE [...] TAMAYO APRN 300.00 ANXIETY UNSPEC 03/02/2011 LAINA STANLEY MD 300.00 ANXIETY UNSPEC 03/02/2011 300.00 ANXIETY UNSPEC 03/02/2011 MACY TAMAYO APRN 300.00 ANXIETY UNSPEC 03/02/2011 300.00 ANXIETY UNSPEC 03/02/2011 300.00 ANXIETY UNSPEC 03/02/2011 300.00 ANXIETY UNSPEC 03/02/2011 MACY TAMAYO APRN 300.00 ANXIETY UNSPEC 03/02/2011 MACY TAMAYO APRN 300.00 ANXIETY UNSPEC 03/02/2011 MACY TAMAYO APRN 300.00 ANXIETY UNSPEC 03/02/2011 BELKIS MG, MACY T 300.00 ANXIETY UNSPEC 03/02/2011 MACY TAMAYO APRN T 300.00 ANXIETY UNSPEC 03/02/2011 MACY TAMAYO APRN T 300.00 ANXIETY UNSPEC 03/02/2011 MACY TAMAYO APRN T 300.00 ANXIETY UNSPEC 03/02/2011 MACY TAMAYO APRN T 300.00 ANXIETY UNSPEC 03/02/2011 SHERRIE BLACKBURN MD [...] 250.00 DIABETES MELLITUS TYPE 2 05/11/2011 LAINA STANLEY MD 250.00 DIABETES MELLITUS TYPE 2 05/11/2011 250.00 DIABETES MELLITUS TYPE 2 05/11/2011 BELKIS REALTY SPECIALIST, MACY T 250.00 DIABETES MELLITUS TYPE 2 05/11/2011 250.00 [...] 250.00 DIABETES MELLITUS TYPE 2 05/11/2011 BELKIS REALTY SPECIALIST, MACY T 250.00 DIABETES MELLITUS TYPE 2 [...] MD 250.00 DIABETES MELLITUS TYPE 2 05/11/2011 DHARMESH MG, MOISES A 250.00 DIABETES MELLITUS TYPE 2 05/11/2011 BELKIS [...] T 250.00 DIABETES MELLITUS TYPE 2 05/11/2011 YUKI BUSH APRN 250.00 DIABETES MELLITUS TYPE 2 07/11/2011 LINDSAY STRONG DO 112.3 Candidiasis Of The Skin 07/11/2011 LINDSAY STRONG DO 787.02 Nausea 07/11/2011 112.3 Candidiasis Of The Skin 07/11/2011 787.02 Nausea 07/11/2011 112.3 Candidiasis Of The Skin 07/11/2011 787.02 Nausea 07/11/2011 MACY TAMAYO APRN 112.3 Candidiasis Of The Skin 07/11/2011 MACY TAMAYO APRN 787.02 Nausea 07/11/2011 MACY TAMAYO APRN 112.3 Candidiasis Of The Skin 07/11/2011 MACY TAMAYO APRN 787.02 Nausea 07/11/2011 LAINA STANLEY MD 112.3 Candidiasis Of The Skin 07/11/2011 LAINA STANLEY MD 787.02 Nausea 07/11/2011 112.3 Candidiasis Of [...] Candidiasis Of The Skin 07/11/2011 SHERRIE BLACKBURN MD 787.02 Nausea 07/11/2011 YUKI BUSH APRN 112.3 [...] Retained Foreign Body Unspecified Material 07/27/2011 LAINA STANLEY MD V90.9 Retained Foreign Body Unspecified Material [...] V90.9 Retained Foreign Body Unspecified Material 07/27/2011 RACHELLE REALTY SPECIALISTYUKI Muñiz V90.9 Retained Foreign Body Unspecified Material 08/24/2011 LINDSAY STRONG DO K 250.80 Hypoglycemia (diabetic) 08/24/2011 LINDSAY STRONG DO 381.81 Eustachian Tube Dysfunction 08/24/2011 LINDSAY STRONG DO K 477.9 Rhinitis 08/24/2011 250.80 Hypoglycemia (diabetic) [...] MACY TAMAYO APRN 477.9 Rhinitis 08/24/2011 LAINA STANLEY MD 250.80 Hypoglycemia (diabetic) 08/24/2011 LAINA STANLEY MD 381.81 Eustachian Tube Dysfunction 08/24/2011 LAINA STANLEY MD 477.9 Rhinitis 08/24/2011 250.80 Hypoglycemia (diabetic) [...] MACY TAMAYO APRN 250.80 Hypoglycemia (diabetic) 08/24/2011 BELKIS REALTY SPECIALIST, MACY T 381.81 Eustachian Tube Dysfunction 08/24/2011 MACY TAMAYO APRN T 477.9 Rhinitis 08/24/2011 MACY TAMAYO APRN T 250.80 Hypoglycemia (diabetic) 08/24/2011 MACY TAMAYO APRN T 381.81 Eustachian Tube Dysfunction 08/24/2011 MACY TAMAYO APRN T 477.9 Rhinitis 08/24/2011 BELKIS MG MACY T 250.80 Hypoglycemia (diabetic) 08/24/2011 MACY [...] 08/24/2011 SHERRIE BLACKBURN MD 477.9 Rhinitis 08/24/2011 SHERRIE BLACKBURN MD 250.80 Hypoglycemia (diabetic) 08/24/2011 SHERRIE BLACKBURN MD 381.81 Eustachian Tube Dysfunction 08/24/2011 SHERRIE BLACKBURN MD 477.9 Rhinitis 08/24/2011 MACY TAMAYO APRN 250.80 Hypoglycemia (diabetic) 08/24/2011 MACY TAMAYO APRN 381.81 Eustachian Tube Dysfunction 08/24/2011 MACY TAMAYO APRN 477.9 Rhinitis 08/24/2011 MAXWELL NIETO, MARLENE Dickey 250.80 Hypoglycemia (diabetic) 08/24/2011 MAXWELL NIETO, MARLENE Dickey 381.81 Eustachian Tube Dysfunction 08/24/2011 MAXWELL PHD, MARLENE Dickey 477.9 Rhinitis 08/24/2011 MAXWELL NIETO, MARLENE Dickey 250.80 Hypoglycemia (diabetic) 08/24/2011 MAXWELL NIETO, MARLENE Dickey 381.81 Eustachian Tube Dysfunction 08/24/2011 MAXWELL NIETO, MARLENE Dickey 477.9 Rhinitis 08/24/2011 SHERRIE BLACKBURN MD 250.80 Hypoglycemia (diabetic) 08/24/2011 SHERRIE BLACKBURN MD 381.81 Eustachian Tube Dysfunction 08/24/2011 SHERRIE BLACKBURN MD 477.9 Rhinitis 08/24/2011 SHERRIE BLACKBURN MD 250.80 Hypoglycemia (diabetic) 08/24/2011 SHERRIE BLACKBURN MD 381.81 Eustachian Tube Dysfunction 08/24/2011 SHERRIE BLACKBURN MD 477.9 Rhinitis 08/24/2011 MOISES BARROSO APRN 250.80 Hypoglycemia (diabetic) 08/24/2011 MOISES BARROSO APRN 381.81 Eustachian Tube Dysfunction 08/24/2011 MOISES BARROSO [...] 08/24/2011 SHERRIE BLACKBURN MD 477.9 Rhinitis 08/24/2011 YUKI BUSH APRN 250.80 Hypoglycemia (diabetic) 08/24/2011 YUKI BUSH APRN 381.81 Eustachian Tube Dysfunction 08/24/2011 YUKI BUSH APRN 477.9 Rhinitis 08/24/2011 MAXWELL NIETO, MARLENE Dickey 250.80 Hypoglycemia (diabetic) 08/24/2011 MAXWELL NIETO, MARLENE iDckey 381.81 Eustachian Tube Dysfunction 08/24/2011 MAXWELL NIETO, MARLENE Dickey 477.9 Rhinitis 08/24/2011 YUKI BUSH APRN 250.80 Hypoglycemia (diabetic) 08/24/2011 YARY BUSH APRNETTE 381.81 Eustachian Tube Dysfunction 08/24/2011 YUKI BUSH [...] YUKI BUSH APRN 477.9 Rhinitis 10/10/2011 STRONG DODEBBIEA K 692.9 Dermatitis 10/10/2011 STRONG DOLINDSAY K 703.0 Ingrowing Nail With Infection 10/10/2011 692.9 Dermatitis 10/10/2011 703.0 Ingrowing Nail With Infection 10/10/2011 692.9 Dermatitis 10/10/2011 703.0 Ingrowing Nail With Infection 10/10/2011 MACY TAMAYO APRN 692.9 Dermatitis 10/10/2011 MACY TAMAYO APRN 703.0 Ingrowing Nail With Infection 10/10/2011 MACY TAMAYO APRN 692.9 Dermatitis 10/10/2011 MACY TAMAYO APRN T 703.0 Ingrowing Nail With Infection 10/10/2011 LAINA STANLEY MD 692.9 Dermatitis 10/10/2011 LAINA STANLEY MD 703.0 Ingrowing Nail With Infection 10/10/2011 692.9 Dermatitis 10/10/2011 703.0 Ingrowing Nail With Infection 10/10/2011 MACY TAMAYO APRN 692.9 Dermatitis 10/10/2011 MACY TAMAYO APRN 703.0 Ingrowing Nail With Infection 10/10/2011 692.9 [...] 10/10/2011 MACY TAMAYO APRN 692.9 Dermatitis 10/10/2011 MCAY TAMAYO APRN 703.0 Ingrowing Nail With Infection [...] 703.0 Ingrowing Nail With Infection 10/10/2011 DHARMESH MG, MOISES A 692.9 Dermatitis 10/10/2011 MOISES BARROSO APRN A 703.0 Ingrowing Nail With Infection 10/10/2011 MACY TAMAYO APRN 692.9 Dermatitis 10/10/2011 MACY TAMAYO APRN 703.0 Ingrowing Nail With Infection 10/10/2011 YUKI BUSH APRN 692.9 Dermatitis 10/10/2011 YUKI BUSH APRN 703.0 Ingrowing Nail With Infection 10/10/2011 MACY TAMAYO APRN 692.9 Dermatitis 10/10/2011 MACY TAMAYO APRN 703.0 Ingrowing Nail With Infection 10/10/2011 SHERRIE BLACKBURN MD 692.9 Dermatitis 10/10/2011 HSERRIE BLACKBURN MD 703.0 Ingrowing Nail With Infection 10/10/2011 YUKI BUSH APRN 692.9 Dermatitis 10/10/2011 RACHELLE MG, YUKI 703.0 Ingrowing Nail With Infection 10/10/2011 MAXWELL PHD, MARLENE Dickey 692.9 Dermatitis 10/10/2011 MAXWELL NIETO, MARLENE Dickey 703.0 Ingrowing Nail With Infection 10/10/2011 RACHELLE REALTY SPECIALIST, YUKI 692.9 Dermatitis 10/10/2011 RACHELLE REALTY SPECIALIST, YUKI 703.0 Ingrowing Nail With Infection 10/10/2011 MACY TAMAYO APRN 692.9 Dermatitis 10/10/2011 MACY TAMAYO APRN 703.0 Ingrowing Nail With Infection 10/10/2011 MACY TAMAYO APRN 692.9 Dermatitis 10/10/2011 MACY TAMAYO APRN 703.0 Ingrowing Nail With Infection 10/10/2011 YUKI BUSH APRN 692.9 Dermatitis 10/10/2011 YUKI BUSH APRN 703.0 Ingrowing Nail With Infection 12/03/2011 LIGIA VALLES, LINDSAY Cook 691.8 DERMATITIS ATOPIC ECZEMA 12/03/2011 691.8 DERMATITIS [...] TAMAYO APRN 691.8 DERMATITIS ATOPIC ECZEMA 12/03/2011 BERE SAEZ, SHERRIE 691.8 DERMATITIS ATOPIC ECZEMA 12/03/2011 BERE SAEZ, SHERRIE 691.8 DERMATITIS ATOPIC ECZEMA 12/03/2011 MACY TAMAYO APRN 691.8 DERMATITIS ATOPIC ECZEMA 12/03/2011 MAXWELL PHD, MARLENE Dickey 691.8 DERMATITIS ATOPIC ECZEMA 12/03/2011 MAXWELL PHD, MARLENE Dickey 691.8 DERMATITIS ATOPIC ECZEMA 12/03/2011 BERE SAEZ, SHERRIE 691.8 DERMATITIS ATOPIC ECZEMA 12/03/2011 SHERRIE BLACKBURN MD 691.8 DERMATITIS ATOPIC ECZEMA 12/03/2011 MOISES BARROSO [...] 01/17/2012 MACY TAMAYO APRN 782.3 Edema 01/17/2012 LAINA STANLEY MD 782.3 Edema 01/17/2012 782.3 Edema 01/17/2012 MACY TAMAYO APRN 782.3 Edema 01/17/2012 782.3 Edema 01/17/2012 782.3 Edema 01/17/2012 782.3 Edema 01/17/2012 MACY TAMAYO APRN 782.3 Edema 01/17/2012 MACY TAMAYO APRN T 782.3 Edema 01/17/2012 BELKIS MG, MACY T 782.3 Edema 01/17/2012 BELKIS MG, MACY T 782.3 Edema 01/17/2012 BELKIS MG, MACY T 782.3 Edema 01/17/2012 BELKIS MG, MACY T 782.3 Edema 01/17/2012 MACY TAMAYO APRN [...] MD 782.3 Edema 01/17/2012 DHARMESH MG, MOISES A 782.3 Edema 01/17/2012 MACY TAMAYO APRN T 782.3 Edema 01/17/2012 YUKI BUSH APRN 782.3 Edema 01/17/2012 MACY TAMAYO APRN T 782.3 Edema 01/17/2012 SHERRIE BLACKBURN MD 782.3 Edema 01/17/2012 RACHELLETAMY MG, YUKI 782.3 Edema 01/17/2012 MAXWELL PHD, MARLENE Dickey 782.3 Edema 01/17/2012 RACHELLE MG, YUKI 782.3 Edema 01/17/2012 MACY TAMAYO APRN T 782.3 Edema 01/17/2012 MACY TAMAYO APRN T 782.3 Edema 01/17/2012 RACHELLE SAURAV, YUKI 782.3 Edema 02/29/2012 LINDSAY STRONG DO 729.4 PLANTAR FASCIITIS 02/29/2012 LINDSAY STRONG DO 729.5 LEG PAIN 02/29/2012 729.4 PLANTAR FASCIITIS 02/29/2012 729.5 LEG PAIN 02/29/2012 729.4 PLANTAR FASCIITIS 02/29/2012 729.5 LEG PAIN 02/29/2012 BELKIS REALTY SPECIALIST, MACY T 729.4 PLANTAR FASCIITIS 02/29/2012 BELKIS MG, MACY T 729.5 LEG PAIN 02/29/2012 BELKIS KOROMAN, MACY T 729.4 PLANTAR FASCIITIS 02/29/2012 BELKIS MG, MACY T 729.5 LEG PAIN 02/29/2012 LAINA STALNEY MD 729.4 PLANTAR FASCIITIS 02/29/2012 LAINA STANLEY MD 729.5 LEG PAIN 02/29/2012 729.4 PLANTAR [...] APRN T 729.5 LEG PAIN 02/29/2012 MACY TAMAOY APRN T 729.4 PLANTAR FASCIITIS 02/29/2012 MACY TAMAYO APRN T 729.5 LEG PAIN 02/29/2012 MACY TAMAYO APRN T 729.4 PLANTAR FASCIITIS 02/29/2012 MACY TAMAYO APRN T 729.5 LEG PAIN 02/29/2012 MACY TAMAYO APRN T 729.4 PLANTAR FASCIITIS 02/29/2012 MACY TAMAYO APRN T 729.5 LEG PAIN 02/29/2012 BELKIS KOROMANMACY T 729.4 PLANTAR FASCIITIS 02/29/2012 BELKIS KOROMANMACY T 729.5 LEG PAIN 02/29/2012 MACY TAMAYO [...] TAMAYO APRN 729.5 LEG PAIN 02/29/2012 MAXWELL NIETO, MARLENE Dickey 729.4 PLANTAR FASCIITIS 02/29/2012 MAXWELL NIETO, MARLENE Dickey 729.5 LEG PAIN 02/29/2012 MAXWELL NIETO, MARLENE Dickey 729.4 PLANTAR FASCIITIS 02/29/2012 MAXWELL NIETO, MARLENE Dickey 729.5 LEG PAIN 02/29/2012 SHERRIE BLACKBURN MD 729.4 PLANTAR FASCIITIS 02/29/2012 SHERRIE BLACKBURN MD 729.5 LEG PAIN 02/29/2012 SHERRIE BLACKBURN MD9.4 PLANTAR FASCIITIS 02/29/2012 SHERRIE BLACKBURN MD 729.5 LEG PAIN 02/29/2012 MOISES BARROSO APRN A 729.4 PLANTAR FASCIITIS 02/29/2012 MOISES BARROSO APRN A 729.5 LEG PAIN 02/29/2012 MACY TAMAYO APRN 729.4 PLANTAR FASCIITIS 02/29/2012 MACY TAMAYO APRN 729.5 LEG PAIN 02/29/2012 YUKI BUSH APRN 729.4 PLANTAR FASCIITIS 02/29/2012 YUKI BUSH APRN 729.5 LEG PAIN 02/29/2012 MACY TAMAYO APRN 729.4 PLANTAR FASCIITIS 02/29/2012 MACY TAMAYO APRN 729.5 LEG PAIN 02/29/2012 SHERRIE BLACKBURN MD 72Will.4 PLANTAR FASCIITIS 02/29/2012 SHERRIE BLACKBURN MD.5 LEG PAIN 02/29/2012 RACHELLE MG, YUKI 729.4 PLANTAR FASCIITIS 02/29/2012 RACHELLE MG YUKI 729.5 LEG PAIN 02/29/2012 MAXWELL NIETO, MARLENE Dickey 729.4 PLANTAR FASCIITIS 02/29/2012 MAXWELL NIETO, MARLENE Jolley9.5 LEG PAIN 02/29/2012 YUKI BUSH APRN 729.4 PLANTAR FASCIITIS 02/29/2012 YUKI BUSH APRN 729.5 LEG PAIN 02/29/2012 MACY TAMAYO APRN 729.4 PLANTAR FASCIITIS 02/29/2012 MACY TAMAYO APRN 729.5 LEG PAIN 02/29/2012 MACY TAMAYO APRN 729.4 PLANTAR FASCIITIS 02/29/2012 MACY TAMAYO APRN 729.5 LEG PAIN 02/29/2012 YUKI BUSH APRN 729.4 PLANTAR FASCIITIS 02/29/2012 YUKI BUSH APRN [...] MACY TAMAYO APRN 627.8 PERIMENOPAUSE 03/29/2012 LAINA STANLEY MD 616.10 Vaginitis Vulvovaginitis Unspecified 03/29/2012 LAINA STANLEY MD 627.8 PERIMENOPAUSE 03/29/2012 616.10 Vaginitis Vulvovaginitis [...] T 627.8 PERIMENOPAUSE 03/29/2012 MACY TAMAYO APRN 616.10 Vaginitis Vulvovaginitis Unspecified 03/29/2012 MACY TAMAYO APRN 627.8 PERIMENOPAUSE 03/29/2012 MACY TAMAYO APRN 616.10 Vaginitis Vulvovaginitis Unspecified 03/29/2012 MACY TAMAYO APRN 627.8 PERIMENOPAUSE 03/29/2012 MACY TAMAYO APRN 616.10 Vaginitis Vulvovaginitis Unspecified 03/29/2012 MACY TAMAYO APRN 627.8 PERIMENOPAUSE 03/29/2012 MACY TAMAYO APRN T [...] MD 627.8 PERIMENOPAUSE 03/29/2012 MACY TAMAYO APRN 616.10 Vaginitis Vulvovaginitis Unspecified 03/29/2012 MACY TAMAYO APRN 627.8 PERIMENOPAUSE 03/29/2012 MAXWELL NIETO, MARLENE Dickey 616.10 Vaginitis Vulvovaginitis Unspecified 03/29/2012 MAXWELL NIETO, MARLENE Dickey 627.8 PERIMENOPAUSE 03/29/2012 MAXWELL NIETO, MARLENE Dickey 616.10 Vaginitis Vulvovaginitis Unspecified 03/29/2012 MAXWELL NIETO, MARLENE Dickey 627.8 PERIMENOPAUSE 03/29/2012 SHERRIE BLACKBURN MD 616.10 Vaginitis Vulvovaginitis Unspecified 03/29/2012 SHERRIE BLACKBURN MD 627.8 PERIMENOPAUSE 03/29/2012 SHERRIE BLACKBURN MD 616.10 Vaginitis Vulvovaginitis Unspecified 03/29/2012 SHERRIE BLACKBURN MD 627.8 PERIMENOPAUSE 03/29/2012 DHARMESH MG, MOISES A 616.10 Vaginitis Vulvovaginitis Unspecified 03/29/2012 DHARMESH MG, MOISES A 627.8 PERIMENOPAUSE 03/29/2012 MACY TAMAYO APRN 616.10 Vaginitis Vulvovaginitis Unspecified 03/29/2012 MACY TAMAYO APRN 627.8 PERIMENOPAUSE 03/29/2012 RACHELLE MG YUKI 616.10 Vaginitis Vulvovaginitis Unspecified 03/29/2012 RACHELLE MG, YUKI 627.8 PERIMENOPAUSE 03/29/2012 MACY TAMAYO APRN 616.10 Vaginitis Vulvovaginitis Unspecified 03/29/2012 MACY TAMAYO APRN 627.8 PERIMENOPAUSE 03/29/2012 SHERRIE BLACKBURN MD 616.10 Vaginitis Vulvovaginitis Unspecified 03/29/2012 SHERRIE BLACKBURN MD 627.8 PERIMENOPAUSE 03/29/2012 RACHELLE MG YUKI 616.10 Vaginitis Vulvovaginitis Unspecified 03/29/2012 RACHELLE MG, YUKI 627.8 PERIMENOPAUSE 03/29/2012 MAXWELL NIETO, MARLENE Dickey 616.10 Vaginitis Vulvovaginitis Unspecified 03/29/2012 MAXWELL NIETO, MARLENE Dickey 627.8 PERIMENOPAUSE 03/29/2012 RACHELLE REALTY SPECIALIST, YUKI 616.10 Vaginitis Vulvovaginitis Unspecified 03/29/2012 RACHELLE MG, YUKI 627.8 PERIMENOPAUSE 03/29/2012 MACY TAMAYO APRN T 616.10 Vaginitis Vulvovaginitis Unspecified 03/29/2012 MACY TAMAYO APRN 627.8 PERIMENOPAUSE 03/29/2012 MACY TAMAYO APRN 616.10 Vaginitis Vulvovaginitis Unspecified 03/29/2012 MACY TAMAYO APRN 627.8 PERIMENOPAUSE 03/29/2012 RACHELLE MG, YUKI 616.10 Vaginitis Vulvovaginitis Unspecified 03/29/2012 RACHELLE MG, YUKI 627.8 PERIMENOPAUSE 04/18/2012 LINDSAY STRONG DO 511.0 PLEURISY NOS 04/18/2012 511.0 PLEURISY NOS 04/18/2012 511.0 PLEURISY NOS 04/18/2012 MACY TAMAYO APRN T 511.0 PLEURISY NOS 04/18/2012 MACY TAMAYO APRN T 511.0 PLEURISY NOS 04/18/2012 LIZETH SAEZ, LAINA Christianson 511.0 PLEURISY NOS 04/18/2012 511.0 PLEURISY NOS 04/18/2012 MACY TAMAYO APRN T 511.0 PLEURISY NOS 04/18/2012 511.0 PLEURISY NOS 04/18/2012 511.0 PLEURISY NOS 04/18/2012 511.0 PLEURISY NOS 04/18/2012 MACY TAMAYO APRN 511.0 PLEURISY NOS 04/18/2012 MACY TAMAYO APRN 511.0 PLEURISY NOS 04/18/2012 MACY TAMAYO APRN [...] BERE SAEZ, SHERRIE 511.0 PLEURISY NOS 04/18/2012 BELKIS MG, MACY T 511.0 PLEURISY NOS 04/18/2012 MAXWELL PHD, MARLENE Dickey 511.0 PLEURISY NOS 04/18/2012 MAXWELL PHD, MARLENE Dickey 511.0 PLEURISY NOS 04/18/2012 BERE SAEZ, SHERRIE 511.0 PLEURISY NOS 04/18/2012 BERE SAEZ, SHERRIE 511.0 PLEURISY NOS 04/18/2012 DHARMESH MG, MOISES A 511.0 PLEURISY NOS 04/18/2012 BELKIS MG, MACY T 511.0 PLEURISY NOS 04/18/2012 RACHELLE MG, YUKI 511.0 PLEURISY NOS 04/18/2012 MACY TAMAYO APRN T 511.0 PLEURISY NOS 04/18/2012 BERE SAEZ, SHERRIE 511.0 PLEURISY NOS 04/18/2012 RACHELLE MG, YUKI 511.0 PLEURISY NOS 04/18/2012 MAXWELL PHD, MARLENE Dickey 511.0 PLEURISY NOS 04/18/2012 RACHELLE MG, YUKI 511.0 PLEURISY NOS 04/18/2012 MACY TAMAYO APRN T 511.0 PLEURISY NOS 04/18/2012 MACY TAMAYO APRN T 511.0 PLEURISY NOS 04/18/2012 RACHELLE MG, YUKI 511.0 PLEURISY NOS 06/20/2012 782.1 RASH 06/20/2012 MACY TAMAYO APRN 782.1 RASH 06/20/2012 MACY TAMAYO APRN T 782.1 RASH 06/20/2012 LAINA STANLEY MD 782.1 RASH 06/20/2012 782.1 RASH 06/20/2012 MACY TAMAYO APRN 782.1 RASH 06/20/2012 782.1 RASH 06/20/2012 782.1 [...] MD 782.1 RASH 06/20/2012 MACY TAMAYO APRN T 782.1 RASH 06/20/2012 MAXWELL PHD, MARLENE Dickey [...] MAXWELL PHD, MARLENE Dickey 782.1 RASH 06/20/2012 RACHELLE MG, YUKI 782.1 RASH 06/20/2012 MACY TAMAYO APRN T 782.1 RASH 06/20/2012 MACY TAMAYO APRN 782.1 RASH 06/20/2012 RACHELLE MG YUKI 782.1 RASH 08/08/2012 LIZETH SAEZ, LAINA [...] shortness of breath 08/08/2012 MACY TAMAYO APRN T 786.05 shortness of breath 08/08/2012 MACY TAMAYO APRN T 786.05 SHORTNESS OF BREATH 08/08/2012 MACY TAMAYO APRN T 786.05 SHORTNESS OF BREATH 08/08/2012 MACY [...] APRN 786.05 SHORTNESS OF BREATH 08/08/2012 MAXWELL NIETO, MARLENE Dickey 786.05 SHORTNESS OF BREATH 08/08/2012 [...] TAMAYO APRN V58.69 MEDICATION HIGH RISK 10/17/2012 MAXWELL PHD, MARLENE Dickey V58.69 MEDICATION HIGH RISK 10/17/2012 MAXWELL PHD, MARLENE Dickey V58.69 MEDICATION HIGH RISK 10/17/2012 SHERRIE BLACKBURN MD V58.69 MEDICATION HIGH RISK 10/17/2012 BERE SAEZ, SHERRIE V58.69 MEDICATION HIGH RISK 10/17/2012 MOISES BARROSO APRN V58.69 MEDICATION HIGH RISK 10/17/2012 MACY TAMAYO APRN T V58.69 MEDICATION HIGH RISK 10/17/2012 RACHELLE MG, YUKI V58.69 MEDICATION HIGH RISK 10/17/2012 MACY TAMAYO APRN T V58.69 MEDICATION HIGH RISK 10/17/2012 SHERRIE BLACKBURN MD V58.69 MEDICATION HIGH RISK 10/17/2012 YUKI BUSH APRN V58.69 MEDICATION HIGH RISK 10/17/2012 MAXWELL PHD, MARLENE Dickey V58.69 MEDICATION HIGH RISK 10/17/2012 RACHELLE MG YUKI V58.69 MEDICATION HIGH RISK 10/17/2012 MACY TAMAYO APRN T V58.69 MEDICATION HIGH RISK 10/17/2012 MACY TAMAYO APRN T V58.69 MEDICATION HIGH RISK 10/17/2012 YARY BUSH APRNETTE V58.69 MEDICATION HIGH RISK 02/11/2013 MACY TAMAYO APRN 710.3 DERMATOMYOSITIS 02/11/2013 MACY TAMAYO APRN 710.3 DERMATOMYOSITIS 02/11/2013 MACY TAMAYO APRN 710.3 DERMATOMYOSITIS 02/11/2013 BELKIS REALTY SPECIALIST, MACY T 710.3 DERMATOMYOSITIS 02/11/2013 BELKIS REALTY SPECIALIST, MACY T 710.3 DERMATOMYOSITIS 02/11/2013 BELKIS REALTY SPECIALIST, MACY T 710.3 DERMATOMYOSITIS 02/11/2013 BELKIS REALTY SPECIALIST, MACY T 710.3 DERMATOMYOSITIS 02/11/2013 BELKIS REALTY SPECIALIST, MACY T 710.3 DERMATOMYOSITIS 02/11/2013 BERE SAEZ, SHERRIE 710.3 DERMATOMYOSITIS 02/11/2013 BERE SAEZ, SHERRIE 710.3 DERMATOMYOSITIS 02/11/2013 BELKIS KOROMAN, MACY T 710.3 DERMATOMYOSITIS 02/11/2013 MAXWELL PHD, MARLENE Dickey 710.3 DERMATOMYOSITIS 02/11/2013 MAXWELL PHD, MARLENE Dickey 710.3 DERMATOMYOSITIS 02/11/2013 BERE SAEZ, SHERRIE 710.3 DERMATOMYOSITIS 02/11/2013 BERE SAEZ, SHERRIE 710.3 DERMATOMYOSITIS 02/11/2013 DHARMESH KOROMAN, MOISES Turk 710.3 DERMATOMYOSITIS 02/11/2013 BELKIS KOROMAN, MACY T 710.3 DERMATOMYOSITIS 02/11/2013 RACHELLE REALTY SPECIALIST, YUKI 710.3 DERMATOMYOSITIS 02/11/2013 BELKIS KOROMAN, MACY T 710.3 DERMATOMYOSITIS 02/11/2013 SHERRIE BLACKBURN MD 710.3 DERMATOMYOSITIS 02/11/2013 RACHELLE REALTY SPECIALIST, YUKI 710.3 DERMATOMYOSITIS 02/11/2013 MAXWELL PHD, MARLENE Dickey 710.3 DERMATOMYOSITIS 02/11/2013 RACHELLE REALTY SPECIALIST, YUKI 710.3 DERMATOMYOSITIS 02/11/2013 BELKIS KOROMAN, MACY T 710.3 DERMATOMYOSITIS 02/11/2013 BELKIS KOROMAN, MACY T 710.3 DERMATOMYOSITIS 02/11/2013 RACHELLE REALTY SPECIALIST, YUKI 710.3 DERMATOMYOSITIS 03/13/2013 BELKIS KOROMAN, MACY T 008.8 GASTROENTERITIS, VIRAL 03/13/2013 BELKIS KOROMAN, MACY T 008.8 GASTROENTERITIS, VIRAL 03/13/2013 BELKIS KOROMAN, MACY T 008.8 GASTROENTERITIS, VIRAL 03/13/2013 BELKIS MG, MACY T 008.8 GASTROENTERITIS, VIRAL 03/13/2013 BELKIS KOROMAN, MACY T 008.8 GASTROENTERITIS, VIRAL 03/13/2013 BELKIS MG, MACY T 008.8 GASTROENTERITIS, VIRAL 03/13/2013 MACY TAMAYO APRN T 008.8 GASTROENTERITIS, VIRAL 03/13/2013 BERE SAEZ, SHERRIE 008.8 GASTROENTERITIS, VIRAL 03/13/2013 BERE SAEZ, SHERRIE 008.8 GASTROENTERITIS, VIRAL 03/13/2013 MACY TAMAYO APRN 008.8 GASTROENTERITIS, VIRAL 03/13/2013 MAXWELL PHD, MARLENE Dickey 008.8 GASTROENTERITIS, VIRAL 03/13/2013 MAXWELL PHD, MARLENE Dickey 008.8 GASTROENTERITIS, VIRAL 03/13/2013 SHERRIE BLACKBURN MD 008.8 GASTROENTERITIS, VIRAL 03/13/2013 BERE SAEZ, SHERRIE 008.8 GASTROENTERITIS, VIRAL 03/13/2013 DHARMESH REALTY SPECIALIST, MOISES A 008.8 GASTROENTERITIS, VIRAL 03/13/2013 MACY TAMAYO APRN T 008.8 GASTROENTERITIS, VIRAL 03/13/2013 RACHELLE REALTY SPECIALIST, YUKI 008.8 GASTROENTERITIS, VIRAL 03/13/2013 MACY TAMAYO APRN T 008.8 GASTROENTERITIS, VIRAL 03/13/2013 SHERRIE BLACKBURN MD 008.8 GASTROENTERITIS, VIRAL 03/13/2013 RACHELLE REALTY SPECIALIST, YUKI 008.8 GASTROENTERITIS, VIRAL 03/13/2013 MAXWELL PHD, MARLENE Dickey 008.8 GASTROENTERITIS, VIRAL 03/13/2013 RACHELLE REALTY SPECIALIST, YUKI 008.8 GASTROENTERITIS, VIRAL 03/13/2013 MACY TAMAYO APRN T 008.8 GASTROENTERITIS, VIRAL 03/13/2013 MACY TAMAYO APRN T 008.8 GASTROENTERITIS, VIRAL 03/13/2013 RACHELLE REALTY SPECIALIST, YUKI 008.8 GASTROENTERITIS, VIRAL 08/09/2013 MACY TAMAYO APRN 535.50 GASTRITIS UNSPEC 08/09/2013 MACY TAMAYO APRN 535.50 GASTRITIS UNSPEC 08/09/2013 MACY TAMAYO APRN T 535.50 GASTRITIS UNSPEC 08/09/2013 MACY TAMAYO APRN [...] BLACKBURN MD 535.50 GASTRITIS UNSPEC 08/09/2013 DHARMESH SAURAV, MOISES A 535.50 GASTRITIS UNSPEC 08/09/2013 MACY TAMAYO APRN 535.50 GASTRITIS UNSPEC 08/09/2013 RACHELLE MG, YUKI 535.50 GASTRITIS UNSPEC 08/09/2013 MACY TAMAYO APRN 535.50 GASTRITIS UNSPEC 08/09/2013 SHERRIE BLACKBURN MD 535.50 GASTRITIS UNSPEC 08/09/2013 RACHELLE MG, YUKI 535.50 GASTRITIS UNSPEC 08/09/2013 MAXWELL NIETO, MARLENE Dickey 535.50 GASTRITIS UNSPEC 08/09/2013 RACHELLE MG, YUKI 535.50 GASTRITIS UNSPEC 08/09/2013 MACY TAMAYO APRN 535.50 GASTRITIS UNSPEC 08/09/2013 MACY TAMAYO APRN 535.50 GASTRITIS UNSPEC 08/09/2013 RACHELLE MG, YUKI 535.50 GASTRITIS UNSPEC 10/14/2013 MACY TAMAYO APRN [...] 10/14/2013 SHERRIE BLACKBURN MD 782.3 EDEMA 10/14/2013 DHARMESH REALTY SPECIALIST, MOISES A 214.9 LIPOMA 10/14/2013 DHARMESH REALTY SPECIALIST, MOISES A 782.3 EDEMA 10/14/2013 BELKIS REALTY SPECIALIST, MACY T 214.9 LIPOMA 10/14/2013 BELKIS REALTY SPECIALIST, MACY T 782.3 EDEMA 10/14/2013 RACHELLE REALTY SPECIALIST, YUKI 214.9 LIPOMA 10/14/2013 RACHELLE REALTY SPECIALIST, YUKI 782.3 EDEMA 10/14/2013 BELKIS REALTY SPECIALIST, MACY T 214.9 LIPOMA 10/14/2013 BELKIS REALTY SPECIALIST, MACY T 782.3 EDEMA 10/14/2013 SHERRIE BLACKBURN MD 214.9 LIPOMA 10/14/2013 SHERRIE BLACKBURN MD 782.3 EDEMA 10/14/2013 RACHELLE REALTY SPECIALIST, YUKI 214.9 LIPOMA 10/14/2013 RACHELLE REALTY SPECIALIST, YUKI 782.3 EDEMA 10/14/2013 MAXWELL NIETO, MARLENE Dickey 214.9 LIPOMA 10/14/2013 MAXWELL PHD, MARLENE Dickey 782.3 EDEMA 10/14/2013 RACHELLE REALTY SPECIALIST, YUKI 214.9 LIPOMA 10/14/2013 RACHELLE REALTY SPECIALIST, YUKI 782.3 EDEMA 10/14/2013 BELKIS REALTY SPECIALIST, MACY T 214.9 LIPOMA 10/14/2013 BELKIS REALTY SPECIALIST, MACY T 782.3 EDEMA 10/14/2013 BELKIS REALTY SPECIALIST, MACY T 214.9 LIPOMA 10/14/2013 BELKIS MG, MACY T 782.3 EDEMA 10/14/2013 RACHELLE REALTY SPECIALIST, YUKI 214.9 LIPOMA 10/14/2013 RACHELLE REALTY SPECIALIST, YUKI 782.3 EDEMA 01/01/2014 BELKIS MG, MACY T 786.05 SHORTNESS OF BREATH 01/01/2014 SHERRIE BLACKBURN MD 786.05 SHORTNESS OF BREATH 01/01/2014 SHERRIE BLACKBURN MD 786.05 SHORTNESS OF BREATH 01/01/2014 MACY TAMAYO APRN T 786.05 SHORTNESS OF BREATH 01/01/2014 MAXWELL NIETO, MARLENE Dickey 786.05 SHORTNESS OF BREATH 01/01/2014 MAXWELL NIETO, MARLENE Dickey 786.05 SHORTNESS OF BREATH 01/01/2014 SHERRIE BLACKBURN MD 786.05 SHORTNESS OF BREATH 01/01/2014 SHERRIE BLACKBURN MD 786.05 SHORTNESS OF BREATH 01/01/2014 MOISES BARROSO APRN 786.05 SHORTNESS OF BREATH 01/01/2014 MACY TAMAYO APRN 786.05 SHORTNESS OF BREATH 01/01/2014 YUKI BUSH APRN 786.05 SHORTNESS OF BREATH 01/01/2014 MACY TAMAYO APRN 786.05 SHORTNESS OF BREATH 01/01/2014 SHERRIE BLACKBURN MD 786.05 SHORTNESS OF BREATH 01/01/2014 YUKI BUSH APRN 786.05 SHORTNESS OF BREATH 01/01/2014 MARLENE ARREOLA PHD 786.05 SHORTNESS OF BREATH 01/01/2014 YUKI BUSH APRN 786.05 SHORTNESS OF BREATH 01/01/2014 MACY TAMAYO APRN 786.05 SHORTNESS OF BREATH 01/01/2014 MACY TAMAYO APRN 786.05 SHORTNESS OF BREATH 01/01/2014 YUKI BUSH APRN 786.05 SHORTNESS OF BREATH 02/03/2014 SHERRIE BLACKBURN [...] DEPRESSIVE DISORDER NOT ELSEWHERE CLASSIFIED 02/03/2014 RACHELLE REALTY SPECIALIST, UYKI 311 DEPRESSIVE DISORDER NOT ELSEWHERE CLASSIFIED 03/20/2014 MARLENE ARREOLA PHD 296.90 MOOD DISORDER NOS 03/20/2014 MARLENE ARREOLA PHD 296.90 MOOD DISORDER NOS 03/20/2014 SHERRIE BLACKBURN MD 296.90 MOOD DISORDER NOS 03/20/2014 SHERRIE BLACKBURN MD 296.90 MOOD DISORDER NOS 03/20/2014 JASON BARROSO APRNIDI A 296.90 MOOD DISORDER NOS 03/20/2014 MACY TAMAYO APRN T 296.90 MOOD DISORDER NOS 03/20/2014 RACHELLE REALTY SPECIALIST, YUKI 296.90 MOOD DISORDER NOS 03/20/2014 MACY TAMAYO APRN 296.90 MOOD DISORDER NOS 03/20/2014 SHERRIE BLACKBURN MD 296.90 MOOD DISORDER NOS 03/20/2014 RACHELLE REALTY SPECIALIST, YUKI 296.90 MOOD DISORDER NOS 03/20/2014 MARLENE ARREOLA PHD 296.90 MOOD DISORDER NOS 03/20/2014 RACHELLE REALTY SPECIALIST, YUKI 296.90 MOOD DISORDER NOS 03/20/2014 MACY TAMAYO APRN T 296.90 MOOD DISORDER NOS 03/20/2014 MACY TAMAYO APRN T 296.90 MOOD DISORDER NOS 03/20/2014 RACHELLE REALTY SPECIALIST, YUKI 296.90 MOOD DISORDER NOS 04/15/2014 SHERRIE BLACKBURN MD 599.0 URINARY TRACT INFECTION SITE NOT SPECIFIED 04/15/2014 MOISES BARROSO APRN A 599.0 URINARY TRACT INFECTION SITE NOT SPECIFIED 04/15/2014 MACY TAMAYO APRN 599.0 URINARY TRACT INFECTION SITE NOT SPECIFIED 04/15/2014 RACHELLE MG YUKI 599.0 URINARY TRACT INFECTION SITE NOT SPECIFIED 04/15/2014 MACY TAMAYO APRN 599.0 URINARY TRACT INFECTION SITE NOT SPECIFIED 04/15/2014 SHERRIE BLACKBURN MD 599.0 URINARY TRACT INFECTION SITE NOT SPECIFIED 04/15/2014 RACHELLE MG, YUKI 599.0 URINARY TRACT INFECTION SITE NOT SPECIFIED 04/15/2014 MAXWELL NIETO, MARLENE Dickey 599.0 URINARY TRACT INFECTION SITE NOT SPECIFIED 04/15/2014 RACHELLE MG, YUKI 599.0 URINARY TRACT INFECTION SITE NOT SPECIFIED 04/15/2014 MACY TAMAYO APRN 599.0 URINARY TRACT INFECTION SITE NOT SPECIFIED 04/15/2014 MACY TAMAYO APRN 599.0 URINARY TRACT INFECTION SITE NOT SPECIFIED 04/15/2014 RACHELLETAMY MG, YUKI 599.0 URINARY TRACT INFECTION SITE NOT SPECIFIED 04/21/2014 MOISES BARROSO APRN A 611.71 MASTODYNIA 04/21/2014 MOISES BARROSO APRN A 703.0 NAIL INGROWN 04/21/2014 MACY TAMAYO APRN 611.71 MASTODYNIA 04/21/2014 MACY TAMAYO APRN 703.0 NAIL INGROWN 04/21/2014 YARY BUSH APRNETTE 611.71 MASTODYNIA 04/21/2014 RACHELLE MG, YUKI 703.0 NAIL INGROWN 04/21/2014 MACY TAMAYO APRN 611.71 MASTODYNIA 04/21/2014 MACY TAMAYO APRN 703.0 NAIL INGROWN 04/21/2014 SHERRIE BLACKBURN MD 611.71 MASTODYNIA 04/21/2014 SHERRIE BLACKBURN MD 703.0 NAIL INGROWN 04/21/2014 RACHELLETAMY MG, YUKI 611.71 MASTODYNIA 04/21/2014 RACHELLE MG, [...] TAMAYO APRN 703.0 NAIL INGROWN 04/21/2014 RACHELLE SAURAV, YUKI 611.71 MASTODYNIA 04/21/2014 RACHELLE SAURAV, YUKI 703.0 NAIL INGROWN 04/29/2014 Ot 717.7 [...] V76.2 CERVICAL CANCER SCREENING (PAP SMEAR) 05/08/2014 MAXWELL NIETO, MARLENE Dickey V73.81 HPV SCREENING 05/08/2014 MAXWELL NIETO, MARLENE Dickey V76.2 CERVICAL CANCER SCREENING (PAP SMEAR) 05/08/2014 [...] MACY TAMAYO Ot 214.9 05/09/2014 MACY TAMAYO BRANCH ADMINISTRATOR Ot 278.01 05/09/2014 MACY TAMAYO BRANCH ADMINISTRATOR Ot 686.1 05/09/2014 MACY TAMAYO BRANCH ADMINISTRATOR Ot 782.3 05/09/2014 MOISES BARROSO Burke REALTY SPECIALIST Ot 611.71 05/09/2014 DHARMESHMOISES Muñiz REALTY SPECIALIST Ot 611.71 05/20/2014 MACY TAMAYO APRN 728.85 SPASM OF MUSCLE 05/20/2014 SHERRIE BLACKBURN MD 728.85 SPASM OF MUSCLE 05/20/2014 YUKI BUSH APRN 728.85 SPASM OF MUSCLE 05/20/2014 MAXWELL NIETO, MARLENE Dickey 728.85 SPASM OF MUSCLE 05/20/2014 YUKI BUSH APRN 728.85 SPASM OF MUSCLE 05/20/2014 MACY TAMAYO APRN 728.85 SPASM OF MUSCLE 05/20/2014 MACY TAMAYO APRN 728.85 SPASM OF MUSCLE 05/20/2014 YUKI BUSH APRN 728.85 SPASM OF MUSCLE 06/06/2014 YUKI BUSH APRN 525.9 UNSPECIFIED DISORDER OF THE TEETH AND SUPPORTING STRUCTURES 06/06/2014 MAXWELL NIETO, MARLENE Dickey 525.9 UNSPECIFIED DISORDER OF THE TEETH AND [...] MACY TAMAYO APRN 461.9 SINUSITIS ACUTE 07/16/2014 RACHELLE REALTY SPECIALIST, YUKI 461.9 SINUSITIS ACUTE 09/23/2014 YUKI BUSH APRN 300.00 AN ANXIETY UNSPEC 09/23/2014 YUKI BUSH APRN 307.42 PERSISTENT DISORDER OF INITIATING OR MAINTAINING SLEEP 04/08/2016 Ot 626.8 MENSTRUAL DISORDER NEC 04/08/2016 Ot V76.12 OTH SCREEN MAMMO-MALIGN NEOPLASM OF SANDRA 04/08/2016 MACY TAMAYO BRANCH ADMINISTRATOR Ot 214.9 LIPOMA NOS 04/08/2016 MACY TAMAYO BRANCH ADMINISTRATOR Ot 278.01 MORBID OBESITY 04/08/2016 BELKIS MACY Claudine BRANCH ADMINISTRATOR Ot 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 04/08/2016 BELKIS MACY Claudine BRANCH ADMINISTRATOR Ot 782.3 EDEMA 04/08/2016 JASON BARROSOAFSHAN Turk APRN Ot 611.71 MASTODYNIA 04/08/2016 MACY TAMAYO BRANCH ADMINISTRATOR Ot 214.9 LIPOMA NOS 04/08/2016 MACY TAMAYO BRANCH ADMINISTRATOR Ot 278.01 MORBID OBESITY 04/08/2016 MACY TAMAYO BRANCH ADMINISTRATOR Ot 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 04/08/2016 MACY TAMAYO BRANCH ADMINISTRATOR Ot 782.3 EDEMA 04/08/2016 HENRY THOMPSON BRANCH ADMINISTRATOR Ot S83.281A OTH TEAR OF LAT MENSC, CURRENT INJURY, R 04/08/2016 HENRY THOMPSON BRANCH ADMINISTRATOR Ot X58.XXXA EXPOSURE TO OTHER SPECIFIED FACTORS, INI 04/08/2016 HENRY THOMPSON BRANCH ADMINISTRATOR Ot Y99.8 OTHER EXTERNAL CAUSE STATUS 04/08/2016 HENRY THOMPSON BRANCH ADMINISTRATOR Ot S83.281A OTH TEAR OF LAT MENSC, CURRENT INJURY, R 04/08/2016 HENRY THOMPSON BRANCH ADMINISTRATOR Ot X58.XXXA EXPOSURE TO OTHER SPECIFIED FACTORS, INI 04/08/2016 HENRY THOMPSON BRANCH ADMINISTRATOR Ot Y99.8 OTHER EXTERNAL CAUSE STATUS 04/09/2016 HENRY THOMPSON BRANCH ADMINISTRATOR Ot S83.281A OTH TEAR OF LAT MENSC, CURRENT INJURY, R 04/09/2016 HENRY THOMPSON BRANCH ADMINISTRATOR Ot X58.XXXA EXPOSURE TO OTHER SPECIFIED FACTORS, INI 04/09/2016 HENRY THOMPSON BRANCH ADMINISTRATOR Ot Y99.8 OTHER EXTERNAL CAUSE STATUS 04/11/2016 HENRY THOMPSON BRANCH ADMINISTRATOR Ot S83.281A OTH TEAR OF LAT MENSC, CURRENT INJURY, R 04/11/2016 HENRY THOMPSON BRANCH ADMINISTRATOR Ot X58.XXXA EXPOSURE TO OTHER SPECIFIED FACTORS, INI 04/11/2016 HENRY THOMPSON BRANCH ADMINISTRATOR Ot Y99.8 OTHER EXTERNAL CAUSE STATUS 04/15/2016 Ot 626.8 MENSTRUAL DISORDER NEC 04/15/2016 Ot V76.12 OTH SCREEN MAMMO-MALIGN NEOPLASM OF SANDRA 04/15/2016 MACY TAMAYO BRANCH ADMINISTRATOR Ot 214.9 LIPOMA NOS 04/15/2016 MACY TAMAYO BRANCH ADMINISTRATOR Ot 278.01 MORBID OBESITY 04/15/2016 MACY TAMAYO BRANCH ADMINISTRATOR Ot 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 04/15/2016 MACY TAMAYO BRANCH ADMINISTRATOR Ot 782.3 EDEMA 04/15/2016 MOISES BARROSO APRN Ot 611.71 MASTODYNIA 04/15/2016 HENRY THOMPSON Ot S83.281A OTH TEAR OF LAT MENSC, CURRENT INJURY, R 04/15/2016 HENRY THOMPSONP Ot X58.XXXA EXPOSURE TO OTHER SPECIFIED FACTORS, INI 04/15/2016 HENRY THOMPSON Ot Y99.8 OTHER EXTERNAL CAUSE STATUS 04/15/2016 HENRY THOMPSON Ot S83.281A OTH TEAR OF LAT MENSC, CURRENT INJURY, R 04/15/2016 HENRY THOMPSON BRANCH ADMINISTRATOR Ot X58.XXXA EXPOSURE TO OTHER SPECIFIED FACTORS, INI 04/15/2016 HENRY THOMPSON BRANCH ADMINISTRATOR Ot Y99.8 OTHER EXTERNAL CAUSE STATUS 04/15/2016 MACY TAMAYO BRANCH ADMINISTRATOR Ot 214.9 LIPOMA NOS 04/15/2016 MACY TAMAYO BRANCH ADMINISTRATOR Ot 278.01 MORBID OBESITY 04/15/2016 MACY TAMAYO BRANCH ADMINISTRATOR Ot 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 04/15/2016 MACY TAMAYO BRANCH ADMINISTRATOR Ot 782.3 EDEMA 04/16/2016 MACY TAMAYO BRANCH ADMINISTRATOR Ot 214.9 LIPOMA NOS 04/16/2016 MACY TAMAYO BRANCH ADMINISTRATOR Ot 278.01 MORBID OBESITY 04/16/2016 MACY TAMAYO BRANCH ADMINISTRATOR Ot 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 04/16/2016 MACY TAMAYO BRANCH ADMINISTRATOR Ot 782.3 EDEMA 04/16/2016 HENRY THOMPSON BRANCH ADMINISTRATOR Ot S83.281A OTH TEAR OF LAT MENSC, CURRENT INJURY, R 04/16/2016 HENRY THOMPSON BRANCH ADMINISTRATOR Ot X58.XXXA EXPOSURE TO OTHER SPECIFIED FACTORS, INI 04/16/2016 HENRY THOMPSON BRANCH ADMINISTRATOR Ot Y99.8 OTHER EXTERNAL CAUSE STATUS 06/29/2017 BEKLISMACY BRANCH ADMINISTRATOR Ot 214.9 LIPOMA NOS 06/29/2017 BELKISMACY Claudine BRANCH ADMINISTRATOR Ot 278.01 MORBID OBESITY 06/29/2017 BELKIS MACY Claudine BRANCH ADMINISTRATOR Ot 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 06/29/2017 BELKISMACY BRANCH ADMINISTRATOR Ot 782.3 EDEMA 06/29/2017 DHARMESH, MOISES A REALTY SPECIALIST Ot 611.71 MASTODYNIA 06/29/2017 HENRY THOMPSON BRANCH ADMINISTRATOR Ot S83.281A OTH TEAR OF LAT MENSC, CURRENT INJURY, R 06/29/2017 HENRY THOMPSON BRANCH ADMINISTRATOR Ot X58.XXXA EXPOSURE TO OTHER SPECIFIED FACTORS, INI 06/29/2017 HENRY THOMPSON BRANCH ADMINISTRATOR Ot Y99.8 OTHER EXTERNAL CAUSE STATUS 06/30/2017 KINGSLEY SADLER REALTY SPECIALIST Ot Z12.31 ENCNTR SCREEN MAMMOGRAM FOR MALIGNANT NE 02/02/2018 BELKISMACY Claudine BRANCH ADMINISTRATOR Ot 214.9 LIPOMA NOS 02/02/2018 BELKISMACY Claudine BRANCH ADMINISTRATOR Ot 278.01 MORBID OBESITY 02/02/2018 BELKISMACY Claudine BRANCH ADMINISTRATOR Ot 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 02/02/2018 BELKIS MACY Claudine BRANCH ADMINISTRATOR Ot 782.3 EDEMA 02/02/2018 DHARMESH, MOISES A REALTY SPECIALIST Ot 611.71 MASTODYNIA 02/02/2018 HENRY THOMPSON BRANCH ADMINISTRATOR Ot S83.281A OTH TEAR OF LAT MENSC, CURRENT INJURY, R 02/02/2018 HENRY THOMPSON BRANCH ADMINISTRATOR Ot X58.XXXA EXPOSURE TO OTHER SPECIFIED FACTORS, INI 02/02/2018 HENRY THOMPSON BRANCH ADMINISTRATOR Ot Y99.8 OTHER EXTERNAL CAUSE STATUS 02/02/2018 KINGSLEY SADLER R REALTY SPECIALIST Ot Z12.31 ENCNTR SCREEN MAMMOGRAM FOR MALIGNANT NE 02/03/2018 LIA TORRES MD Ot F41.9 ANXIETY DISORDER, UNSPECIFIED 02/03/2018 LIA TORRES MD Ot H10.9 UNSPECIFIED CONJUNCTIVITIS 02/03/2018 LIA TORRES MD Ot I10 ESSENTIAL (PRIMARY) HYPERTENSION 02/03/2018 LIA TORRES MD Ot J01.90 ACUTE SINUSITIS, UNSPECIFIED 02/03/2018 LIA TORRES MD Ot K21.9 GASTRO-ESOPHAGEAL REFLUX DISEASE WITHOUT 02/03/2018 LIA TORRES MD Ot L03.211 CELLULITIS OF FACE 02/03/2018 LIA TORRES MD Ot N39.0 URINARY TRACT INFECTION, SITE NOT SPECIF 02/03/2018 LIA TORRES MD Ot R50.9 FEVER, UNSPECIFIED 02/03/2018 LIA TORRES MD Ot Z88.6 ALLERGY STATUS TO ANALGESIC AGENT STATUS 02/03/2018 LIA TORRES MD Ot Z88.8 ALLERGY STATUS TO OTH DRUG/MEDS/BIOL SUB 02/03/2018 LIA TORRES MD Ot Z91.040 LATEX ALLERGY STATUS 02/03/2018 LIA TORRES MD Ot Z98.890 OTHER SPECIFIED POSTPROCEDURAL STATES 02/04/2018 PATRICIO ONEIL MD Ot F41.9 ANXIETY DISORDER, UNSPECIFIED 02/04/2018 PATRICIO ONEIL MD Ot I10 ESSENTIAL (PRIMARY) HYPERTENSION 02/04/2018 PATRICIO ONEIL MD Ot K21.9 GASTRO-ESOPHAGEAL REFLUX DISEASE WITHOUT 02/04/2018 PATRICIO ONEIL MD Ot L03.211 CELLULITIS OF FACE 02/04/2018 PATRICIO ONEIL MD Ot R22.0 LOCALIZED SWELLING, MASS AND LUMP, HEAD 02/04/2018 PATRICIO ONEIL MD Ot Z88.6 ALLERGY STATUS TO ANALGESIC AGENT STATUS 02/04/2018 PATRICIO ONEIL MD Ot Z88.8 ALLERGY STATUS TO OTH DRUG/MEDS/BIOL SUB 02/04/2018 PATRICIO ONEIL MD Ot Z91.040 LATEX ALLERGY STATUS 02/04/2018 PATRICIO ONEIL MD Ot Z98.890 OTHER SPECIFIED POSTPROCEDURAL STATES 02/05/2018 PATRICIO ONEIL MD Ot F41.0 PANIC DISORDER [EPISODIC PAROXYSMAL ANXI 02/05/2018 PATRICIO ONEIL MD Ot I10 ESSENTIAL (PRIMARY) HYPERTENSION 02/05/2018 PATRICIO ONEIL MD Ot K21.9 GASTRO-ESOPHAGEAL REFLUX DISEASE WITHOUT 02/05/2018 PATRICIO ONEIL MD Ot L03.211 CELLULITIS OF FACE 02/05/2018 PATRICIO ONEIL MD Ot 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 02/05/2018 PATRICIO ONEIL MD Ot R06.02 SHORTNESS OF BREATH 02/05/2018 PATRICIO ONEIL MD Ot 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 02/05/2018 PATRICIO ONEIL MD Ot Z88.6 ALLERGY STATUS TO ANALGESIC AGENT STATUS 02/05/2018 PATRICIO ONEIL MD Ot Z88.8 ALLERGY STATUS TO OTH DRUG/MEDS/BIOL SUB 02/05/2018 PATRICIO ONEIL MD Ot Z91.040 LATEX ALLERGY STATUS 02/05/2018 PATRICIO ONEIL MD Ot Z98.890 OTHER SPECIFIED POSTPROCEDURAL STATES 02/06/2018 PATRICIO ONEIL MD Ot F41.9 ANXIETY DISORDER, UNSPECIFIED 02/06/2018 PATRICIO ONEIL MD Ot I10 ESSENTIAL (PRIMARY) HYPERTENSION 02/06/2018 PATRICIO ONEIL MD Ot K21.9 GASTRO-ESOPHAGEAL REFLUX DISEASE WITHOUT 02/06/2018 PATRICIO ONEIL MD Ot L03.211 CELLULITIS OF FACE 02/06/2018 PATRICIO ONEIL MD Ot R22.0 LOCALIZED SWELLING, MASS AND LUMP, HEAD 02/06/2018 PATRICIO ONEIL MD Ot Z88.6 ALLERGY STATUS TO ANALGESIC AGENT STATUS 02/06/2018 PATRICIO ONEIL MD Ot Z88.8 ALLERGY STATUS TO OTH DRUG/MEDS/BIOL SUB 02/06/2018 PATRICIO ONEIL MD Ot Z91.040 LATEX ALLERGY STATUS 02/06/2018 PATRICIO ONEIL MD Ot Z98.890 OTHER SPECIFIED POSTPROCEDURAL STATES 04/30/2018 MACY TAMAYO Ot 214.9 LIPOMA NOS 04/30/2018 MACY TAMAYO Ot 278.01 MORBID OBESITY 04/30/2018 MACY TAMAYO Ot 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 04/30/2018 MACY TAMAYO Ot 782.3 EDEMA 04/30/2018 DHARMESH, MOISES A REALTY SPECIALIST Ot 611.71 MASTODYNIA 04/30/2018 HENRY THOMPSON BRANCH ADMINISTRATOR Ot S83.281A OTH TEAR OF LAT MENSC, CURRENT INJURY, R 04/30/2018 HENRY THOMPSON BRANCH ADMINISTRATOR Ot X58.XXXA EXPOSURE TO OTHER SPECIFIED FACTORS, INI 04/30/2018 HENRY THOMPSON BRANCH ADMINISTRATOR Ot Y99.8 OTHER EXTERNAL CAUSE STATUS 04/30/2018 KINGSLEY SADLER REALTY SPECIALIST Ot Z12.31 ENCNTR SCREEN MAMMOGRAM FOR MALIGNANT NE 05/01/2018 LIBIA RODRIGUEZ MD (DDU) Ot G89.29 OTHER CHRONIC PAIN 05/01/2018 LIBIA RODRIGUEZ MD (CHRISU) Ot M54.5 LOW BACK PAIN 05/01/2018 LIBIA RODRIGUEZ MD (DDU) Ot Z02.71 ENCOUNTER FOR DISABILITY DETERMINATION 05/09/2018 MACY TAMAYO BRANCH ADMINISTRATOR Ot 214.9 LIPOMA NOS 05/09/2018 MACY TAMAYO BRANCH ADMINISTRATOR Ot 278.01 MORBID OBESITY 05/09/2018 MACY TAMAYO BRANCH ADMINISTRATOR Ot 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 05/09/2018 MACY TAMAYO BRANCH ADMINISTRATOR Ot 782.3 EDEMA 05/09/2018 MOISES BARROSO REALTY SPECIALIST Ot 611.71 MASTODYNIA 05/09/2018 HENRY THOMPSON BRANCH ADMINISTRATOR Ot S83.281A OTH TEAR OF LAT MENSC, CURRENT INJURY, R 05/09/2018 HENRY THOMPSON BRANCH ADMINISTRATOR Ot X58.XXXA EXPOSURE TO OTHER SPECIFIED FACTORS, INI 05/09/2018 HENRY THOMPSON BRANCH ADMINISTRATOR Ot Y99.8 OTHER EXTERNAL CAUSE STATUS 05/09/2018 KINGSLEY SADLER REALTY SPECIALIST Ot Z12.31 ENCNTR SCREEN MAMMOGRAM FOR MALIGNANT NE 05/09/2018 LIBIA RODRIGUEZ MD (DDU) Ot G89.29 OTHER CHRONIC PAIN 05/09/2018 LIBIA RODRIGUEZ MD (CHRISU) Ot M54.5 LOW BACK PAIN 05/09/2018 LIBIA RODRIGUEZ MD (DDU) Ot Z02.71 ENCOUNTER FOR DISABILITY DETERMINATION Procedures Code [place] [address] MAMMOGRAM, SCREENING 03/29/2012 93514 CULTURE UROGENITAL 03/29/2012 98837 GC/CHLAM PROBE (STATE) 03/29/2012 62658 MICROALBUMIN 04/04/2012 23109 A1C (IN-HOUSE) 04/04/2012 61345 MICRO ALBUMIN-IN HOUSE 04/04/2012 93867 ROUTINE VENIPUNCTURE 06/26/2012 25023 ESR/SED RATE 06/26/2012 42265 CMP 06/26/2012 20364 LIPID PANEL 06/26/2012 84034 TSH 06/26/2012 39965 CBC 06/26/2012 71788 PTT (THROMBOPLASTIN TIME, PARTIAL) 06/26/2012 94277 CRP 06/26/2012 ANAANA OPAL ANALYZER (SCREEN) 06/26/2012 94988 A1C (IN-HOUSE) 07/04/2012 Laina Camacho 07/05/2012 86768 ROUTINE VENIPUNCTURE 08/08/2012 19345 CMP 08/08/2012 3795909 GFR CALC (RESULT ONLY) 08/08/2012 58301 CBC 08/08/2012 70144 CRP 08/08/2012 36523 CPK 08/08/2012 47931 ESR/SED RATE 08/08/2012 76388 XRAY CHEST 2 VIEW 08/10/2012 61858 UA W/MICROSCOPY 08/10/2012 65014 CARDIOLIPIN ANTIBODY 08/10/2012 76490 ROUTINE VENIPUNCTURE 08/20/2012 75604 CMP 08/20/2012 2343169 GFR CALC (RESULT ONLY) 08/20/2012 56254 CPK 08/20/2012 13587 HEPATITIS PROFILE 08/20/2012 01158 ROUTINE VENIPUNCTURE 10/17/2012 01360 A1C (IN-HOUSE) 10/17/2012 17648 CMP 10/18/2012 16907 CBC 10/18/2012 92981 A1C (IN-HOUSE) 01/23/2013 27981 THERAPUTIC INJ SQ/IM 02/07/2013 24880 CBC 02/07/2013 61996 CMP 02/07/2013 7158314 GFR CALC (RESULT ONLY) 02/07/2013 35130 ROUTINE VENIPUNCTURE 06/14/2013 72682 MYOGLOBIN 06/14/2013 49701 TSH 06/14/2013 43267 A1C (IN-HOUSE) 06/14/2013 51574 CBC 06/14/2013 24260 CMP 06/14/2013 3538253 GFR CALC (RESULT ONLY) 06/14/2013 00465 A1C (IN-HOUSE) 08/09/2013 12855 ROUTINE VENIPUNCTURE 09/09/2013 61873 CPK 09/09/2013 52711 MYOGLOBIN 09/09/2013 84797 TSH 09/09/2013 67511 CBC 09/09/2013 24648 CMP 09/09/2013 00434 MAGNESIUM 09/09/2013 6204542 GFR CALC (RESULT ONLY) 09/09/2013 58408 US SOFT TISSUE (SPECIFY LOCATION) 10/14/2013 36975 OXIMETRY 10/14/2013 00508 ROUTINE VENIPUNCTURE 11/27/2013 43270 CMP 11/27/2013 11338 MYOGLOBIN 11/27/2013 83771 CBC 11/27/2013 83639 SED/ESR RATE RML 11/27/2013 71038 MICRO ALBUMIN-IN HOUSE 11/27/2013 11405 A1C (IN-HOUSE) 11/27/2013 INTERNAL SHERRIE BLACKBURN 01/01/2014 27339 ROUTINE VENIPUNCTURE 03/04/2014 09012 A1C (IN-HOUSE) 03/04/2014 94196 CBC 03/04/2014 3566946 GFR CALC (RESULT ONLY) 03/04/2014 69886 CMP 03/04/2014 11151 PSYCH DIAGNOSTIC EVALUATION 03/20/2014 86003 PSYTX PT&/FAMILY 45 MINUTES 04/02/2014 03637 UA W/ CULTURE IF INDICATED 04/15/2014 20357 CULTURE URINE 04/17/2014 04926 MAMMOGRAM DX, MARIANA 04/22/2014 47780 REMOVAL OF NAIL BED 05/06/2014 25441 PAP SMEAR 05/12/2014 Q0091 PAP SMEAR OBTAIN SMEAR 05/12/2014 69731 ROUTINE VENIPUNCTURE 05/20/2014 61690 BMP 05/20/2014 58781 MAGNESIUM 05/20/2014 67180 PSYTX PT&/FAMILY 30 MINUTES 05/26/2014 59062 ROUTINE VENIPUNCTURE 09/08/2014 42993 A1C (RML) 09/08/2014 6098257 GFR CALC (RESULT ONLY) 09/08/2014 03963 CMP 09/08/2014 87469 LIPID PANEL 09/08/2014 Results Test Result Range [...] NRG STATEMENT OF ADEQUACY: NRG INTERPRETATION/RESULT: NRG SLITTER AND REWINDER: KEERTHI HPV mRNA E6/E7, SUREPATH VIAL Not Detected NOT DETECTED REVIEW SLITTER AND REWINDER: KEERTHI LIPID PANEL - 06/23/17 08:09 CHOLESTEROL, TOTAL 178 mg/dL <200 HDL CHOLESTEROL 68 mg/dL >50 TRIGLYCERIDES 86 mg/dL <150 LDL-CHOLESTEROL 92 mg/dL (calc) NRG CHOL/HDLC RATIO 2.6 (calc) <5.0 NON HDL CHOLESTEROL 110 mg/dL (calc) <130 CULTURE, URINE - 07/25/17 13:10 CULTURE, URINE, ROUTINE SEE NOTE NRG PDM - 09 PANEL (PROFILE 1) - 01/25/18 13:10 Prescribed Drug 1 [place](TM) NRG Creatinine 35.1 mg/dL > or=20.0 pH 6.51 4.5 - 9.0 Oxidant NEGATIVE mcg/mL <200 Amphetamines NEGATIVE ng/mL <500 medMATCH Amphetamines CONSISTENT NRG Benzodiazepines NEGATIVE ng/mL <100 medMATCH Benzodiazepines CONSISTENT NRG Marijuana Metabolite NEGATIVE ng/mL <20 medMATCH Marijuana Metab CONSISTENT NRG Cocaine Metabolite NEGATIVE ng/mL <150 medMATCH Cocaine Metab CONSISTENT NRG Opiates POSITIVE ng/mL <100 Oxycodone NEGATIVE ng/mL <100 medMATCH Oxycodone CONSISTENT NRG COMMENT NRG Codeine NEGATIVE ng/mL <50 medMATCH Codeine CONSISTENT NRG Hydrocodone 577 ng/mL <50 medMATCH Hydrocodone CONSISTENT NRG Hydromorphone NEGATIVE ng/mL <50 medMATCH Hydromorphone CONSISTENT NRG Morphine NEGATIVE ng/mL <50 medMATCH Morphine CONSISTENT NRG Norhydrocodone 334 ng/mL <50 medMATCH Norhydrocodone CONSISTENT NRG Barbiturates NEGATIVE ng/mL <300 medMATCH Barbiturates CONSISTENT NRG Methadone Metabolite NEGATIVE ng/mL <100 medMATCH Methadone Metab CONSISTENT NRG Phencyclidine NEGATIVE ng/mL <25 medMATCH Phencyclidine CONSISTENT NRG Complete blood count (CBC) with automated white blood cell (WBC) differential - 02/03/18 00:28 Blood leukocytes automated count (number/volume) 6.6 10*3/uL 4.3-11.0 Blood erythrocytes automated count (number/volume) 5.62 10*6/uL 4.35-5.85 Venous blood hemoglobin measurement (mass/volume) 14.9 g/dL 11.5-16.0 Blood hematocrit (volume fraction) 43 % 35-52 Automated erythrocyte mean corpuscular volume 76 [foz_us] 80-99 Automated erythrocyte mean corpuscular hemoglobin (mass per erythrocyte) 27 pg 25-34 Automated erythrocyte mean corpuscular hemoglobin concentration measurement ( mass/volume) 35 g/dL 32-36 Automated erythrocyte distribution width ratio 14.7 % 10.0-14.5 Automated blood platelet count (count/volume) 177 10*3/uL 130-400 Automated blood platelet mean volume measurement 10.0 [foz_us] 7.4-10.4 Automated blood neutrophils/100 leukocytes 72 % 42-75 Automated blood lymphocytes/100 leukocytes 16 % 12-44 Blood monocytes/100 leukocytes 11 % 0-12 Automated blood eosinophils/100 leukocytes 1 % 0-10 Automated blood basophils/100 leukocytes 1 % 0-10 Blood neutrophils automated count (number/volume) 4.8 10*3 1.8-7.8 Blood lymphocytes automated count (number/volume) 1.1 10*3 1.0-4.0 Blood monocytes automated count (number/volume) 0.7 10*3 0.0-1.0 Automated eosinophil count 0.0 10*3/uL 0.0-0.3 Automated blood basophil count (count/volume) 0.0 10*3/uL 0.0-0.1 Blood lactic acid measurement (moles/volume) - 02/03/18 00:28 Blood lactic acid measurement (moles/volume) 1.69 mmol/L 0.50-2.00 Whole blood basic metabolic panel - 02/03/18 00:28 Serum or plasma sodium measurement (moles/volume) 128 mmol/L 135-145 Serum or plasma potassium measurement (moles/volume) 4.4 mmol/L 3.6-5.0 Serum or plasma chloride measurement (moles/volume) 92 mmol/L 98-107 Carbon dioxide 24 mmol/L 21-32 Serum or plasma anion gap determination (moles/volume) 12 mmol/L 5-14 Serum or plasma urea nitrogen measurement (mass/volume) 18 mg/dL 7-18 Serum or plasma creatinine measurement (mass/volume) 1.17 mg/dL 0.60-1.30 Serum or plasma urea nitrogen/creatinine mass ratio 15 NRG Serum or plasma creatinine measurement with calculation of estimated glomerular filtration rate 59 NRG Serum or plasma glucose measurement (mass/volume) 294 mg/dL 70-105 Serum or plasma calcium measurement (mass/volume) 9.9 mg/dL 8.5-10.1 Serum or plasma C reactive protein measurement (mass/volume) - 02/03/18 00:28 Serum or plasma C reactive protein measurement (mass/volume) 0.88 mg /dL 0.00-0.50 Bacterial blood culture - 02/03/18 00:28 Bacterial blood culture NG NRG Bacterial blood culture - 02/03/18 00:43 Bacterial blood culture NG NRG Complete urinalysis with reflex to culture - 02/03/18 00:59 Urine color determination BELEN NRG Urine clarity determination VERY CLOUDY NRG Urine pH measurement by test strip 6 5-9 Specific gravity of urine by test strip 1.020 1.016- 1.022 Urine protein assay by test strip, semi-quantitative 2+ NEGATIVE Urine glucose detection by automated test strip 2+ NEGATIVE Erythrocytes detection in urine sediment by light microscopy 4+ NEGATIVE Urine ketones detection by automated test strip 1+ NEGATIVE Urine nitrite detection by test strip NEGATIVE NEGATIVE Urine total bilirubin detection by test strip NEGATIVE NEGATIVE Urine urobilinogen measurement by automated test strip (mass/volume) NORMAL NORMAL Urine leukocyte esterase detection by dipstick 3+ NEGATIVE Automated urine sediment erythrocyte count by microscopy (number/high power field) [HPF] NRG Automated urine sediment leukocyte count by microscopy (number/high power field ) [HPF] NRG Bacteria detection in urine sediment by light microscopy MODERATE NRG Squamous epithelial cells detection in urine sediment by light microscopy 5-10 NRG Crystals detection in urine sediment by light microscopy NONE NRG Casts detection in urine sediment by light microscopy NONE NRG Mucus detection in urine sediment by light microscopy MODERATE NRG Complete urinalysis with reflex to culture YES NRG Urine Trichomonas species detection by light microscopy LARGE NRG Bacterial urine culture - 02/03/18 00:59 Bacterial urine culture SEE COMMEN NRG COLONY COUNT . NRG Complete blood count (CBC) with automated white blood cell (WBC) differential - 02/04/18 07:45 Blood leukocytes automated count (number/volume) 5.0 10*3/uL 4.3-11.0 Blood erythrocytes automated count (number/volume) 5.28 10*6/uL 4.35-5.85 Venous blood hemoglobin measurement (mass/volume) 13.9 g/dL 11.5-16.0 Blood hematocrit (volume fraction) 41 % 35-52 Automated erythrocyte mean corpuscular volume 77 [foz_us] 80-99 Automated erythrocyte mean corpuscular hemoglobin (mass per erythrocyte) 26 pg 25-34 Automated erythrocyte mean corpuscular hemoglobin concentration measurement ( mass/volume) 34 g/dL 32-36 Automated erythrocyte distribution width ratio 14.5 % 10.0-14.5 Automated blood platelet count (count/volume) 139 10*3/uL 130-400 Automated blood platelet mean volume measurement 9.7 [foz_us] 7.4-10.4 Automated blood neutrophils/100 leukocytes 53 % 42-75 Automated blood lymphocytes/100 leukocytes 31 % 12-44 Blood monocytes/100 leukocytes 12 % 0-12 Automated blood eosinophils/100 leukocytes 1 % 0-10 Automated blood basophils/100 leukocytes 2 % 0-10 Blood neutrophils automated count (number/volume) 2.7 10*3 1.8-7.8 Blood lymphocytes automated count (number/volume) 1.6 10*3 1.0-4.0 Blood monocytes automated count (number/volume) 0.6 10*3 0.0-1.0 Automated eosinophil count 0.1 10*3/uL 0.0-0.3 Automated blood basophil count (count/volume) 0.1 10*3/uL 0.0-0.1 Blood lactic acid measurement (moles/volume) - 02/04/18 07:45 Blood lactic acid measurement (moles/volume) 1.02 mmol/L 0.50-2.00 Comprehensive metabolic panel - 02/04/18 07:45 Serum or plasma sodium measurement (moles/volume) 131 mmol/L 135-145 Serum or plasma potassium measurement (moles/volume) 4.4 mmol/L 3.6-5.0 Serum or plasma chloride measurement (moles/volume) 99 mmol/L 98-107 Carbon dioxide 20 mmol/L 21-32 Serum or plasma anion gap determination (moles/volume) 12 mmol/L 5-14 Serum or plasma urea nitrogen measurement (mass/volume) 12 mg/dL 7-18 Serum or plasma creatinine measurement (mass/volume) 0.97 mg/dL 0.60-1.30 Serum or plasma urea nitrogen/creatinine mass ratio 12 NRG Serum or plasma creatinine measurement with calculation of estimated glomerular filtration rate > NRG Serum or plasma glucose measurement (mass/volume) 308 mg/dL 70-105 Serum or plasma calcium measurement (mass/volume) 9.1 mg/dL 8.5-10.1 Serum or plasma total bilirubin measurement (mass/volume) 0.7 mg/dL 0.1-1.0 Serum or plasma alkaline phosphatase measurement (enzymatic activity/volume) 88 U/L 40-136 Serum or plasma aspartate aminotransferase measurement (enzymatic activity/ volume) 15 U/L 5-34 Serum or plasma alanine aminotransferase measurement (enzymatic activity/volume ) 23 U/L 0-55 Serum or plasma protein measurement (mass/volume) 6.8 g/dL 6.4-8.2 Serum or plasma albumin measurement (mass/volume) 3.7 g/dL 3.2-4.5 CALCIUM CORRECTED 9.3 mg/dL 8.5-10.1 MYOGLOBIN - 02/06/18 12:37 MYOGLOBIN, SERUM 28 mcg/L < 67 CULTURE, URINE - 03/29/18 14:53 CULTURE, URINE, ROUTINE SEE NOTE NRG Capillary blood glucose measurement by glucometer (mass/volume) - 05/09/18 22: 17 Capillary blood glucose measurement by glucometer (mass/volume) > mg /dL 70-110 Complete blood count (CBC) with automated white blood cell (WBC) differential - 05/09/18 22:22 Blood leukocytes automated count (number/volume) 9.1 10*3/uL 4.3-11.0 Blood erythrocytes automated count (number/volume) 4.74 10*6/uL 4.35-5.85 Venous blood hemoglobin measurement (mass/volume) 13.3 g/dL 11.5-16.0 Blood hematocrit (volume fraction) 38 % 35-52 Automated erythrocyte mean corpuscular volume 81 [foz_us] 80-99 Automated erythrocyte mean corpuscular hemoglobin (mass per erythrocyte) 28 pg 25-34 Automated erythrocyte mean corpuscular hemoglobin concentration measurement ( mass/volume) 35 g/dL 32-36 Automated erythrocyte distribution width ratio 16.6 % 10.0-14.5 Automated blood platelet count (count/volume) 231 10*3/uL 130-400 Automated blood platelet mean volume measurement 9.8 [foz_us] 7.4-10.4 Automated blood neutrophils/100 leukocytes 76 % 42-75 Automated blood lymphocytes/100 leukocytes 19 % 12-44 Blood monocytes/100 leukocytes 6 % 0-12 Automated blood eosinophils/100 leukocytes 0 % 0-10 Automated blood basophils/100 leukocytes 0 % 0-10 Blood neutrophils automated count (number/volume) 6.9 10*3 1.8-7.8 Blood lymphocytes automated count (number/volume) 1.7 10*3 1.0-4.0 Blood monocytes automated count (number/volume) 0.5 10*3 0.0-1.0 Automated eosinophil count 0.0 10*3/uL 0.0-0.3 Automated blood basophil count (count/volume) 0.0 10*3/uL 0.0-0.1 Blood lactic acid measurement (moles/volume) - 05/09/18 22:22 Blood lactic acid measurement (moles/volume) 3.22 mmol/L 0.50-2.00 Comprehensive metabolic panel - 05/09/18 22:22 Serum or plasma potassium measurement (moles/volume) 4.9 mmol/L 3.6-5.0 Serum or plasma chloride measurement (moles/volume) 87 mmol/L 98-107 Carbon dioxide 23 mmol/L 21-32 Serum or plasma anion gap determination (moles/volume) 15 mmol/L 5-14 Serum or plasma urea nitrogen measurement (mass/volume) 21 mg/dL 7-18 Serum or plasma creatinine measurement (mass/volume) 1.60 mg/dL 0.60-1.30 Serum or plasma urea nitrogen/creatinine mass ratio 13 NRG Serum or plasma creatinine measurement with calculation of estimated glomerular filtration rate 41 NRG Serum or plasma glucose measurement (mass/volume) 672 mg/dL 70-105 Serum or plasma calcium measurement (mass/volume) 9.6 mg/dL 8.5-10.1 Serum or plasma total bilirubin measurement (mass/volume) 0.3 mg/dL 0.1-1.0 Serum or plasma alkaline phosphatase measurement (enzymatic activity/volume) 110 U/L 40-136 Serum or plasma aspartate aminotransferase measurement (enzymatic activity/ volume) 22 U/L 5-34 Serum or plasma alanine aminotransferase measurement (enzymatic activity/volume ) 44 U/L 0-55 Serum or plasma protein measurement (mass/volume) 7.2 g/dL 6.4-8.2 Serum or plasma albumin measurement (mass/volume) 3.8 g/dL 3.2-4.5 CALCIUM CORRECTED 9.8 mg/dL 8.5-10.1 Magnesium - 05/09/18 22:22 Magnesium 2.1 mg/dL 1.8-2.4 Serum or plasma C reactive protein measurement (mass/volume) - 05/09/18 22:22 Serum or plasma C reactive protein measurement (mass/volume) 1.14 mg /dL 0.00-0.50 Encounters ACCT No. Visit Date/Time Discharge Status Pt. Type Provider Facility Loc./Unit Complaint [id number] 09/23/2014 09:21:00 09/23/2014 23:59:59 CLS Outpatient YUKI BUSH APRN [id number] 09/08/2014 09:50:00 09/08/2014 23:59:59 CLS Outpatient MACY TAMAYO APRN [id number] 09/03/2014 17:57:00 09/03/2014 23:59:59 CLS Outpatient MACY TAMAYO APRN [id number] 07/11/2014 16:23:00 07/11/2014 23:59:59 CLS Outpatient YUKI BUSH APRN [id number] 06/30/2014 10:45:00 06/30/2014 23:59:59 CLS Outpatient MAXWELL NEITO, MARLENE Dickey [id number] 05/26/2014 10:32:00 05/26/2014 23:59:59 CLS Outpatient SHERRIE BLACKBURN MD [id number] 05/20/2014 14:22:00 05/20/2014 23:59:59 CLS Outpatient MACY TAMAYO APRN [id number] 05/08/2014 13:58:00 05/08/2014 23:59:59 CLS Outpatient YUKI BUSH APRN [id number] 05/08/2014 13:58:00 05/08/2014 23:59:59 CLS Outpatient YUKI BUSH APRN [id number] 05/06/2014 15:47:00 05/06/2014 23:59:59 CLS Outpatient MACY TAMAYO APRN Claudine [id number] 04/21/2014 10:30:00 04/21/2014 23:59:59 CLS Outpatient DHARMESH SAURAVJASONMOISES A [id number] 04/15/2014 15:36:00 04/15/2014 23:59:59 CLS Outpatient SHERRIE BLACKBURN MD [id number] 04/04/2014 09:55:00 04/04/2014 23:59:59 CLS Outpatient SHERRIE BLACKBURN MD [id number] 04/02/2014 13:01:00 04/02/2014 23:59:59 CLS Outpatient MARLENE ARREOLA PHD [id number] 03/20/2014 14:03:00 03/20/2014 23:59:59 CLS Outpatient MARLENE ARREOLA PHD [id number] 03/19/2014 14:54:00 03/19/2014 23:59:59 CLS Outpatient BELKIS REALTY SPECIALISTMACY Claudine [id number] 03/04/2014 11:36:00 03/04/2014 23:59:59 CLS Outpatient SHERRIE BLACKBURN MD [id number] 02/03/2014 15:40:00 02/03/2014 23:59:59 CLS Outpatient SHERRIE BLACKBURN MD [id number] 01/01/2014 15:04:00 01/01/2014 23:59:59 CLS Outpatient BELKIS KOROMAAntonino MACY Claudine [id number] 11/27/2013 15:58:00 11/27/2013 23:59:59 CLS Outpatient BELKIS KOROMAAntonino MACY Claudine [id number] 10/14/2013 15:28:00 10/14/2013 23:59:59 CLS Outpatient BELKIS KOROMANMACY Claudine [id number] 09/09/2013 08:45:00 09/09/2013 23:59:59 CLS Outpatient BELKIS KOROMAN, MACY Chow [id number] 08/09/2013 16:21:00 08/09/2013 23:59:59 CLS Outpatient MACY TAMAYO APRN [id number] 06/14/2013 11:12:00 06/14/2013 23:59:59 CLS Outpatient MACY TAMAYO APRN [id number] 03/13/2013 15:49:00 03/13/2013 23:59:59 CLS Outpatient MACY TAMAYO APRN [id number] 02/11/2013 15:24:00 02/11/2013 23:59:59 CLS Outpatient MACY TAMAYO APRN [id number] 09/04/2012 15:40:00 09/04/2012 23:59:59 CLS Outpatient MCAY TAMAYO APRN [id number] 08/20/2012 08:50:00 08/20/2012 23:59:59 CLS Outpatient [id number] 08/08/2012 14:49:00 08/08/2012 23:59:59 CLS Outpatient LAINA STANLEY MD [id number] 07/04/2012 18:16:00 07/04/2012 23:59:59 CLS Outpatient MACY TAMAYO APRN [id number] 06/26/2012 09:06:00 06/26/2012 23:59:59 CLS Outpatient MACY TAMAYO APRN [id number] 06/20/2012 17:28:00 06/20/2012 23:59:59 CLS Outpatient [id number] 04/18/2012 15:54:00 04/18/2012 23:59:59 CLS Outpatient [id number] 02/29/2012 18:24:00 02/29/2012 23:59:59 CLS Outpatient LIGIA VALLES LINDSAY K [id number] 02/07/2013 10:16:00 Document Registration [id number] 01/23/2013 15:37:00 Document Registration [id number] 10/17/2012 15:48:00 Document Registration [id number] 09/09/2016 08:41:00 Document Registration [id number] 09/09/2016 13:05:00 Document Registration [id number] 01/30/2016 13:05:00 Document Registration [id number] 05/02/2018 09:20:00 05/02/2018 23:59:59 CLS Outpatient MACY TAMAYO APRN [facility] [id number] 03/29/2018 14:10:00 Document Registration [id number] 02/06/2018 11:40:00 Document Registration [id number] 01/25/2018 13:00:00 Document Registration [id number] 07/25/2017 12:20:00 Document Registration [id number] 06/23/2017 08:00:00 Document Registration [id number] 06/22/2017 10:40:00 Document Registration [id number] 04/30/2018 09:40:00 04/30/2018 23:59:59 CLS Outpatient JENNIFER SAEZ, LIBIA Turk (DDU) [facility] DDU [id number] 02/05/2018 10:17:00 02/05/2018 11:06:00 DIS Emergency THAD SAEZ, PATRICIO Phillips [facility] SOA [id number] 02/04/2018 06:22:00 02/04/2018 10:42:00 DIS Emergency THAD SAEZ, PATRICIO Phillips [facility] ER FACE SWOLLEN,HEADACHE [id number] 02/02/2018 23:15:00 02/03/2018 02:45:00 DIS Emergency LIA TORRES MD [facility] ER NAUSEA,ESPINAL,LEFT EYE NOT GETTING BETTER [id number] 06/29/2017 08:47:00 06/29/2017 23:59:59 CLS Outpatient KINGSLEY SADLER REALTY SPECIALIST [facility] SCREENING [id number] 04/08/2016 09:02:00 04/08/2016 23:59:59 CLS Outpatient HENRY THOMPSON BRANCH ADMINISTRATOR [facility] [id number] 04/29/2014 12:24:00 04/29/2014 23:59:59 CLS Outpatient MOISES BARROSO REALTY SPECIALIST [facility] BILATERAL BREAST PAIN [id number] 10/25/2013 15:33:00 10/25/2013 23:59:59 CLS Outpatient MACY TAMAYO BRANCH ADMINISTRATOR [facility] RT/LFT BUTTOCKS LIPOMA [id number] 05/09/2018 22:08:00 ACT Emergency FRANCINE FIGUEROA MD [facility] ER HIGH BLOOD SUGAR [id number] 04/29/2014 12:22:00 Document Registration [id number] 11/19/2010 10:13:00 Document Registration [id number] 11/12/2010 20:18:00 Document Registration [id number] 08/27/2010 15:32:00 Document Registration
[2018-05-10] VITALS (7 sets, daily range): BP systolic 107–131; BP diastolic 56–76
--- OUTSIDE RECORDS SUMMARY | 2018-05-10 02:08 | XMS REPORT | Continuity of Care Document ---
Author Author [facility] of [facility] Address Unknown Phone Unavailable Allergies Active Description Code Type Severity Reaction Onset Reported/Identified Relationship to Patient Clinical Status Yes aspirin Drug Allergy N/A N/A 06/01/2009 Yes aspirin Drug Allergy 06/01/2009 Yes aspirin [id number] Drug Allergy Severe N/A 11/12/2010 Yes flu vaccine Drug Allergy 02/23/2011 Yes Latex, Natural Rubber Drug Allergy N/A N/A 03/29/2012 Yes Latex, Natural Rubber Drug Allergy 03/29/2012 Yes latex [id number] Drug Allergy Unknown N/A 02/03/2018 Yes sertraline [id number] Drug Allergy Unknown N/A 02/03/2018 Medications There [...] BERE SAEZ, SHERRIE 372.30 Conjunctivitis 03/17/2008 MACY TAMAYO APRN T 372.30 Conjunctivitis 03/17/2008 MAXWELL PHD, MARLENE Dickey 372.30 Conjunctivitis 03/17/2008 MAXWELL PHD, MARLENE Dickey 372.30 Conjunctivitis 03/17/2008 SHERRIE BLACKBURN MD 372.30 Conjunctivitis 03/17/2008 BERE SAEZ, SHERRIE 372.30 Conjunctivitis 03/17/2008 DHARMESH APRN, MIOSES A 372.30 Conjunctivitis 03/17/2008 MACY TAMAYO APRN T 372.30 Conjunctivitis 03/17/2008 RACHELLE CERTIFIED MEDICAL ASSISTANT, YUKI 372.30 Conjunctivitis 03/17/2008 MACY TAMAYO APRN T 372.30 Conjunctivitis 03/17/2008 SHERRIE BLACKBURN MD 372.30 Conjunctivitis 03/17/2008 RACHELLE CERTIFIED MEDICAL ASSISTANT, YUKI 372.30 Conjunctivitis 03/17/2008 MAXWELL PHD, MARLENE Dickey 372.30 Conjunctivitis 03/17/2008 RACHELLE CERTIFIED MEDICAL ASSISTANT, YUKI 372.30 Conjunctivitis 03/17/2008 MACY TAMAYO APRN T 372.30 Conjunctivitis 03/17/2008 MACY TAMAYO APRN T 372.30 Conjunctivitis 03/17/2008 RACHELLE CERTIFIED MEDICAL ASSISTANT, YUKI 372.30 Conjunctivitis 06/01/2009 LINDSAY STRONG DO [...] TAMAYO APRN 380.4 Cerumen Impaction 07/25/2009 BELKIS CERTIFIED MEDICAL ASSISTANT, MACY T 692.9 Dermatitis 07/25/2009 BELKIS KOROMAN, MACY T 380.10 Otitis Externa 07/25/2009 BELKIS KOROMAN, MACY T 380.4 Cerumen Impaction 07/25/2009 BELKIS KOROMAN, MACY T 692.9 Dermatitis 07/25/2009 BELKIS CERTIFIED MEDICAL ASSISTANT, MACY T 380.10 Otitis Externa 07/25/2009 BELKIS KOROMAN, MACY T 380.4 Cerumen Impaction 07/25/2009 BELKIS KOROMANMACY T 692.9 Dermatitis 07/25/2009 BELKIS CERTIFIED MEDICAL ASSISTANT, MACY T 380.10 Otitis Externa 07/25/2009 BELKIS [...] 08/26/2010 SHERRIE BLACKBURN MD.7 Colic 08/26/2010 RACHELLE CERTIFIED MEDICAL ASSISTANT, YUKI 719.46 Knee Pain 08/26/2010 RACHELLE MG, YUKI 789.7 Colic 08/26/2010 MAXWELL NIETO, MARLENE Dickey 719.46 Knee Pain 08/26/2010 MAXWELL NIETO, MARLENE Dickey 789.7 Colic 08/26/2010 RCAHELLE CERTIFIED MEDICAL ASSISTANT, YUKI 719.46 Knee Pain 08/26/2010 RACHELLETAMY MG, YUKI 789.7 Colic 08/26/2010 MACY TAMAYO APRN 719.46 Knee Pain 08/26/2010 MACY ATMAYO APRN 789.7 Colic 08/26/2010 MACY TAMAYO APRN [...] 250.00 DIABETES MELLITUS TYPE 2 05/11/2011 BELKIS CERTIFIED MEDICAL ASSISTANT, MACY T 250.00 DIABETES MELLITUS TYPE 2 [...] 250.00 DIABETES MELLITUS TYPE 2 05/11/2011 BELKIS CERTIFIED MEDICAL ASSISTANT, MACY T 250.00 DIABETES MELLITUS TYPE 2 [...] PHD 112.3 Candidiasis Of The Skin 07/11/2011 MARLEEN ARREOLA PHD 787.02 Nausea 07/11/2011 SHERRIE BLACKBURN MD 112.3 Candidiasis Of The Skin 07/11/2011 SHERRIE BLACKBURN MD7.02 Nausea 07/11/2011 SHERRIE BLACKBURN MD 112.3 Candidiasis Of The Skin 07/11/2011 SHERRIE BLACKBURN MD7.02 Nausea 07/11/2011 MOISES BARROSO APRN 112.3 Candidiasis Of The Skin 07/11/2011 MOISES BARROSO APRN 787.02 Nausea 07/11/2011 MACY TMAAYO APRN 112.3 Candidiasis Of The Skin 07/11/2011 MACY TAMAYO APRN 787.02 Nausea 07/11/2011 YUKI BUSH APRN 112.3 Candidiasis Of The Skin 07/11/2011 YUKI BUHS APRN 787.02 Nausea 07/11/2011 MACY TAMAYO APRN [...] Body Unspecified Material 07/27/2011 MAXWELL PHD, MARLENE Dickye V90.9 Retained Foreign Body Unspecified Material 07/27/2011 [...] V90.9 Retained Foreign Body Unspecified Material 07/27/2011 YUIK BUSH APRN V90.9 Retained Foreign Body Unspecified Material 07/27/2011 MAXWELL PHD, MARLENE Dickey V90.9 Retained Foreign Body Unspecified Material 07/27/2011 YUKI BUSH APRN V90.9 Retained Foreign Body Unspecified Material 07/27/2011 MACY TAMAYO APRN V90.9 Retained Foreign Body Unspecified Material 07/27/2011 MACY TAMAYO APRN V90.9 Retained Foreign Body Unspecified Material 07/27/2011 RACHELLE CERTIFIED MEDICAL ASSISTANTYUKI Muñiz V90.9 Retained Foreign Body Unspecified Material [...] TAMAYO APRN 250.80 Hypoglycemia (diabetic) 08/24/2011 BELKIS CERTIFIED MEDICAL ASSISTANT, MACY T 381.81 Eustachian Tube Dysfunction 08/24/2011 [...] APRN 703.0 Ingrowing Nail With Infection 10/10/2011 UYKI BUSH APRN 692.9 Dermatitis 10/10/2011 YUKI BUSH [...] 703.0 Ingrowing Nail With Infection 10/10/2011 RACHELLE CERTIFIED MEDICAL ASSISTANT, YUKI 692.9 Dermatitis 10/10/2011 RACHELLE CERTIFIED MEDICAL ASSISTANT, YUKI 703.0 Ingrowing Nail With Infection 10/10/2011 [...] DERMATITIS ATOPIC ECZEMA 12/03/2011 MAXWELL PHD, MARLENE iDckey 691.8 DERMATITIS ATOPIC ECZEMA 12/03/2011 YUKI BUSH [...] FASCIITIS 02/29/2012 729.5 LEG PAIN 02/29/2012 BELKIS CERTIFIED MEDICAL ASSISTANT, MACY T 729.4 PLANTAR FASCIITIS 02/29/2012 BELKIS MG, MACY T 729.5 LEG PAIN 02/29/2012 BELKIS KOROMAN, MACY T 729.4 PLANTAR FASCIITIS 02/29/2012 BELKIS MG, MACY T 729.5 LEG PAIN 02/29/2012 LAINA STANLEY MD 729.4 PLANTAR FASCIITIS 02/29/2012 LAINA STANLEY [...] TAMAYO APRN T 729.5 LEG PAIN 02/29/2012 MAYC TAMAYO APRN T 729.4 PLANTAR FASCIITIS 02/29/2012 [...] NIETO, MARLENE Dickey 627.8 PERIMENOPAUSE 03/29/2012 RACHELLE CERTIFIED MEDICAL ASSISTANT, YUKI 616.10 Vaginitis Vulvovaginitis Unspecified 03/29/2012 RACHELLE MG, YUKI 627.8 PERIMENOPAUSE 03/29/2012 AMCY TAMAYO APRN T 616.10 Vaginitis Vulvovaginitis Unspecified [...] MACY TAMAYO APRN 710.3 DERMATOMYOSITIS 02/11/2013 BELKIS CERTIFIED MEDICAL ASSISTANT, MACY T 710.3 DERMATOMYOSITIS 02/11/2013 BELKIS CERTIFIED MEDICAL ASSISTANT, MACY T 710.3 DERMATOMYOSITIS 02/11/2013 BELKIS CERTIFIED MEDICAL ASSISTANT, MACY T 710.3 DERMATOMYOSITIS 02/11/2013 BELKIS CERTIFIED MEDICAL ASSISTANT, MACY T 710.3 DERMATOMYOSITIS 02/11/2013 BELKIS CERTIFIED MEDICAL ASSISTANT, MACY T 710.3 DERMATOMYOSITIS 02/11/2013 BERE SAEZ, SHERRIE 710.3 DERMATOMYOSITIS 02/11/2013 BERE SAEZ, SHERRIE 710.3 DERMATOMYOSITIS 02/11/2013 BELKIS KOROMAN, MACY T 710.3 DERMATOMYOSITIS 02/11/2013 MAXWELL PHD, MARLENE Dickey 710.3 DERMATOMYOSITIS 02/11/2013 MAXWELL PHD, MARLENE Dickey 710.3 DERMATOMYOSITIS 02/11/2013 BERE SAEZ, SHERRIE 710.3 DERMATOMYOSITIS 02/11/2013 BERE SAEZ, SHERRIE 710.3 DERMATOMYOSITIS 02/11/2013 DHARMESH KOROMAN, MOISES Turk 710.3 DERMATOMYOSITIS 02/11/2013 BELKIS KORMOAN, MACY T 710.3 DERMATOMYOSITIS 02/11/2013 RACHELLE CERTIFIED MEDICAL ASSISTANT, YUKI 710.3 DERMATOMYOSITIS 02/11/2013 BELKIS KOROMAN, MACY T 710.3 DERMATOMYOSITIS 02/11/2013 SHERRIE BLACKBURN MD 710.3 DERMATOMYOSITIS 02/11/2013 RACHELLE CERTIFIED MEDICAL ASSISTANT, YUKI 710.3 DERMATOMYOSITIS 02/11/2013 MAXWELL PHD, MARLENE Dickey 710.3 DERMATOMYOSITIS 02/11/2013 RACHELLE CERTIFIED MEDICAL ASSISTANT, YUKI 710.3 DERMATOMYOSITIS 02/11/2013 BELKIS KOROMAN, MACY T 710.3 DERMATOMYOSITIS 02/11/2013 BELKIS KOROMAN, MACY T 710.3 DERMATOMYOSITIS 02/11/2013 RACHELLE CERTIFIED MEDICAL ASSISTANT, YUKI 710.3 DERMATOMYOSITIS 03/13/2013 BELKIS KOROMAN, MACY [...] SAEZ, SHERRIE 008.8 GASTROENTERITIS, VIRAL 03/13/2013 DHARMESH CERTIFIED MEDICAL ASSISTANT, MOISES A 008.8 GASTROENTERITIS, VIRAL 03/13/2013 MACY TAMAYO APRN T 008.8 GASTROENTERITIS, VIRAL 03/13/2013 RACHELLE CERTIFIED MEDICAL ASSISTANT, YUKI 008.8 GASTROENTERITIS, VIRAL 03/13/2013 MACY TAMAYO APRN T 008.8 GASTROENTERITIS, VIRAL 03/13/2013 SHERRIE BLACKBURN MD 008.8 GASTROENTERITIS, VIRAL 03/13/2013 RACHELLE CERTIFIED MEDICAL ASSISTANT, YUKI 008.8 GASTROENTERITIS, VIRAL 03/13/2013 MAXWELL PHD, MARLENE Dickey 008.8 GASTROENTERITIS, VIRAL 03/13/2013 RACHELLE CERTIFIED MEDICAL ASSISTANT, YUKI 008.8 GASTROENTERITIS, VIRAL 03/13/2013 MACY TAMAYO APRN T 008.8 GASTROENTERITIS, VIRAL 03/13/2013 MACY TAMAYO APRN T 008.8 GASTROENTERITIS, VIRAL 03/13/2013 RACHELLE CERTIFIED MEDICAL ASSISTANT, YUKI 008.8 GASTROENTERITIS, VIRAL 08/09/2013 MACY TAMAYO [...] SHERRIE BLACKBURN MD 782.3 EDEMA 10/14/2013 DHARMESH CERTIFIED MEDICAL ASSISTANT, MOISES A 214.9 LIPOMA 10/14/2013 DHARMESH CERTIFIED MEDICAL ASSISTANT, MOISES A 782.3 EDEMA 10/14/2013 BELKIS CERTIFIED MEDICAL ASSISTANT, MACY T 214.9 LIPOMA 10/14/2013 BELKIS CERTIFIED MEDICAL ASSISTANT, MACY T 782.3 EDEMA 10/14/2013 RACHELLE CERTIFIED MEDICAL ASSISTANT, YUKI 214.9 LIPOMA 10/14/2013 RACHELLE CERTIFIED MEDICAL ASSISTANT, YUKI 782.3 EDEMA 10/14/2013 BELKIS CERTIFIED MEDICAL ASSISTANT, MACY T 214.9 LIPOMA 10/14/2013 BELKIS CERTIFIED MEDICAL ASSISTANT, MACY T 782.3 EDEMA 10/14/2013 SHERRIE BLACKBURN MD 214.9 LIPOMA 10/14/2013 SHERRIE BLACKBURN MD 782.3 EDEMA 10/14/2013 RACHELLE CERTIFIED MEDICAL ASSISTANT, YUKI 214.9 LIPOMA 10/14/2013 RACHELLE CERTIFIED MEDICAL ASSISTANT, YUKI 782.3 EDEMA 10/14/2013 MAXWELL NIETO, MARLENE Dickey 214.9 LIPOMA 10/14/2013 MAXWELL PHD, MARLENE Dickey 782.3 EDEMA 10/14/2013 RACHELLE CERTIFIED MEDICAL ASSISTANT, YUKI 214.9 LIPOMA 10/14/2013 RACHELLE CERTIFIED MEDICAL ASSISTANT, YUKI 782.3 EDEMA 10/14/2013 BELKIS CERTIFIED MEDICAL ASSISTANT, MACY T 214.9 LIPOMA 10/14/2013 BELKIS CERTIFIED MEDICAL ASSISTANT, MACY T 782.3 EDEMA 10/14/2013 BELKIS CERTIFIED MEDICAL ASSISTANT, MACY T 214.9 LIPOMA 10/14/2013 BELKIS MG, MACY T 782.3 EDEMA 10/14/2013 RACHELLE CERTIFIED MEDICAL ASSISTANT, YUKI 214.9 LIPOMA 10/14/2013 RACHELLE CERTIFIED MEDICAL ASSISTANT, YUKI 782.3 EDEMA 01/01/2014 BELKIS MG, MACY [...] DEPRESSIVE DISORDER NOT ELSEWHERE CLASSIFIED 02/03/2014 RACHELLE CERTIFIED MEDICAL ASSISTANT, YUKI 311 DEPRESSIVE DISORDER NOT ELSEWHERE CLASSIFIED 03/20/2014 MARLENE ARREOLA PHD 296.90 MOOD DISORDER NOS 03/20/2014 MARLENE ARREOLA PHD 296.90 MOOD DISORDER NOS 03/20/2014 SHERRIE BLACKBURN MD 296.90 MOOD DISORDER NOS 03/20/2014 SHERRIE BLACKBURN MD 296.90 MOOD DISORDER NOS 03/20/2014 JASON BARROSO APRNIDI A 296.90 MOOD DISORDER NOS 03/20/2014 MACY TAMAYO APRN T 296.90 MOOD DISORDER NOS 03/20/2014 RACHELLE CERTIFIED MEDICAL ASSISTANT, YUKI 296.90 MOOD DISORDER NOS 03/20/2014 MACY TAMAYO APRN 296.90 MOOD DISORDER NOS 03/20/2014 SHERRIE BLACKBURN MD 296.90 MOOD DISORDER NOS 03/20/2014 RACHELLE CERTIFIED MEDICAL ASSISTANT, YUKI 296.90 MOOD DISORDER NOS 03/20/2014 MARLENE ARREOLA PHD 296.90 MOOD DISORDER NOS 03/20/2014 RACHELLE CERTIFIED MEDICAL ASSISTANT, YUKI 296.90 MOOD DISORDER NOS 03/20/2014 MACY TAMAYO APRN T 296.90 MOOD DISORDER NOS 03/20/2014 MACY TAMAYO APRN T 296.90 MOOD DISORDER NOS 03/20/2014 RACHELLE CERTIFIED MEDICAL ASSISTANT, YUKI 296.90 MOOD DISORDER NOS 04/15/2014 SHERRIE [...] MACY TAMAYO Ot 214.9 05/09/2014 MACY TAMAYO TRIBUNAL MEMBER Ot 278.01 05/09/2014 MACY TAMAYO TRIBUNAL MEMBER Ot 686.1 05/09/2014 MACY TAMAYO TRIBUNAL MEMBER Ot 782.3 05/09/2014 MOISES BARROSO Burke CERTIFIED MEDICAL ASSISTANT Ot 611.71 05/09/2014 DHARMESHMOISES Muñiz CERTIFIED MEDICAL ASSISTANT Ot 611.71 05/20/2014 MACY TAMAYO APRN 728.85 [...] TAMAYO APRN 461.9 SINUSITIS ACUTE 07/16/2014 RACHELLE CERTIFIED MEDICAL ASSISTANT, YUKI 461.9 SINUSITIS ACUTE 09/23/2014 YUKI BUSH APRN 300.00 AN ANXIETY UNSPEC 09/23/2014 YUKI BUSH APRN 307.42 PERSISTENT DISORDER OF INITIATING OR MAINTAINING SLEEP 04/08/2016 Ot 626.8 MENSTRUAL DISORDER NEC 04/08/2016 Ot V76.12 OTH SCREEN MAMMO-MALIGN NEOPLASM OF SANDRA 04/08/2016 MACY TAMAYO TRIBUNAL MEMBER Ot 214.9 LIPOMA NOS 04/08/2016 MACY TAMAYO TRIBUNAL MEMBER Ot 278.01 MORBID OBESITY 04/08/2016 BELKIS MACY Claudine TRIBUNAL MEMBER Ot 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 04/08/2016 BELKIS MACY Claudine TRIBUNAL MEMBER Ot 782.3 EDEMA 04/08/2016 JASON BARROSOAFSHAN Turk APRN Ot 611.71 MASTODYNIA 04/08/2016 MACY TAMAYO TRIBUNAL MEMBER Ot 214.9 LIPOMA NOS 04/08/2016 MACY TAMAYO TRIBUNAL MEMBER Ot 278.01 MORBID OBESITY 04/08/2016 MACY TAMAYO TRIBUNAL MEMBER Ot 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 04/08/2016 MACY TAMAYO TRIBUNAL MEMBER Ot 782.3 EDEMA 04/08/2016 HENRY THOMPSON TRIBUNAL MEMBER Ot S83.281A OTH TEAR OF LAT MENSC, CURRENT INJURY, R 04/08/2016 HENRY THOMPSON TRIBUNAL MEMBER Ot X58.XXXA EXPOSURE TO OTHER SPECIFIED FACTORS, INI 04/08/2016 HENRY THOMPSON TRIBUNAL MEMBER Ot Y99.8 OTHER EXTERNAL CAUSE STATUS 04/08/2016 HENRY THOMPSON TRIBUNAL MEMBER Ot S83.281A OTH TEAR OF LAT MENSC, CURRENT INJURY, R 04/08/2016 HENRY THOMPSON TRIBUNAL MEMBER Ot X58.XXXA EXPOSURE TO OTHER SPECIFIED FACTORS, INI 04/08/2016 HENRY THOMPSON TRIBUNAL MEMBER Ot Y99.8 OTHER EXTERNAL CAUSE STATUS 04/09/2016 HENRY THOMPSON TRIBUNAL MEMBER Ot S83.281A OTH TEAR OF LAT MENSC, CURRENT INJURY, R 04/09/2016 HENRY THOMPSON TRIBUNAL MEMBER Ot X58.XXXA EXPOSURE TO OTHER SPECIFIED FACTORS, INI 04/09/2016 HENRY THOMPSON TRIBUNAL MEMBER Ot Y99.8 OTHER EXTERNAL CAUSE STATUS 04/11/2016 HENRY THOMPSON TRIBUNAL MEMBER Ot S83.281A OTH TEAR OF LAT MENSC, CURRENT INJURY, R 04/11/2016 HENRY THOMPSON TRIBUNAL MEMBER Ot X58.XXXA EXPOSURE TO OTHER SPECIFIED FACTORS, INI 04/11/2016 HENRY THOMPSON TRIBUNAL MEMBER Ot Y99.8 OTHER EXTERNAL CAUSE STATUS 04/15/2016 Ot 626.8 MENSTRUAL DISORDER NEC 04/15/2016 Ot V76.12 OTH SCREEN MAMMO-MALIGN NEOPLASM OF SANDRA 04/15/2016 MACY TAMAYO TRIBUNAL MEMBER Ot 214.9 LIPOMA NOS 04/15/2016 MACY TAMAYO TRIBUNAL MEMBER Ot 278.01 MORBID OBESITY 04/15/2016 MACY TAMAYO TRIBUNAL MEMBER Ot 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 04/15/2016 MACY TAMAYO TRIBUNAL MEMBER Ot 782.3 EDEMA 04/15/2016 MOISES BARROSO APRN Ot 611.71 MASTODYNIA 04/15/2016 HENRY THOMPSON Ot S83.281A OTH TEAR OF LAT MENSC, CURRENT INJURY, R 04/15/2016 HENRY THOMPSONP Ot X58.XXXA EXPOSURE TO OTHER SPECIFIED FACTORS, INI 04/15/2016 HENRY THOMPSON Ot Y99.8 OTHER EXTERNAL CAUSE STATUS 04/15/2016 HENRY THOMPSON Ot S83.281A OTH TEAR OF LAT MENSC, CURRENT INJURY, R 04/15/2016 HENRY THOMPSON TRIBUNAL MEMBER Ot X58.XXXA EXPOSURE TO OTHER SPECIFIED FACTORS, INI 04/15/2016 HENRY THOMPSON TRIBUNAL MEMBER Ot Y99.8 OTHER EXTERNAL CAUSE STATUS 04/15/2016 MACY TAMAYO TRIBUNAL MEMBER Ot 214.9 LIPOMA NOS 04/15/2016 MACY TAMAYO TRIBUNAL MEMBER Ot 278.01 MORBID OBESITY 04/15/2016 MACY TAMAYO TRIBUNAL MEMBER Ot 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 04/15/2016 MACY TAMAYO TRIBUNAL MEMBER Ot 782.3 EDEMA 04/16/2016 MACY TAMAYO TRIBUNAL MEMBER Ot 214.9 LIPOMA NOS 04/16/2016 MACY TAMAYO TRIBUNAL MEMBER Ot 278.01 MORBID OBESITY 04/16/2016 MACY TAMAYO TRIBUNAL MEMBER Ot 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 04/16/2016 MACY TAMAYO TRIBUNAL MEMBER Ot 782.3 EDEMA 04/16/2016 HENRY THOMPSON TRIBUNAL MEMBER Ot S83.281A OTH TEAR OF LAT MENSC, CURRENT INJURY, R 04/16/2016 HENRY THOMPSON TRIBUNAL MEMBER Ot X58.XXXA EXPOSURE TO OTHER SPECIFIED FACTORS, INI 04/16/2016 HENRY THOMPSON TRIBUNAL MEMBER Ot Y99.8 OTHER EXTERNAL CAUSE STATUS 06/29/2017 BELKISMACY TRIBUNAL MEMBER Ot 214.9 LIPOMA NOS 06/29/2017 BELKISMACY Claudine TRIBUNAL MEMBER Ot 278.01 MORBID OBESITY 06/29/2017 BELKIS MACY Claudine TRIBUNAL MEMBER Ot 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 06/29/2017 BELKISMACY TRIBUNAL MEMBER Ot 782.3 EDEMA 06/29/2017 DHARMESH, MOISES A CERTIFIED MEDICAL ASSISTANT Ot 611.71 MASTODYNIA 06/29/2017 HENRY THOMPSON TRIBUNAL MEMBER Ot S83.281A OTH TEAR OF LAT MENSC, CURRENT INJURY, R 06/29/2017 HENRY THOMPSON TRIBUNAL MEMBER Ot X58.XXXA EXPOSURE TO OTHER SPECIFIED FACTORS, INI 06/29/2017 HENRY THOMPSON TRIBUNAL MEMBER Ot Y99.8 OTHER EXTERNAL CAUSE STATUS 06/30/2017 KINGSLEY SADLER CERTIFIED MEDICAL ASSISTANT Ot Z12.31 ENCNTR SCREEN MAMMOGRAM FOR MALIGNANT NE 02/02/2018 BELKISMACY Claudine TRIBUNAL MEMBER Ot 214.9 LIPOMA NOS 02/02/2018 BELKISMACY Claudine TRIBUNAL MEMBER Ot 278.01 MORBID OBESITY 02/02/2018 BELKISMACY Claudine TRIBUNAL MEMBER Ot 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 02/02/2018 BELKIS MACY Claudine TRIBUNAL MEMBER Ot 782.3 EDEMA 02/02/2018 DHARMESH, MOISES A CERTIFIED MEDICAL ASSISTANT Ot 611.71 MASTODYNIA 02/02/2018 HENRY THOMPSON TRIBUNAL MEMBER Ot S83.281A OTH TEAR OF LAT MENSC, CURRENT INJURY, R 02/02/2018 HENRY THOMPSON TRIBUNAL MEMBER Ot X58.XXXA EXPOSURE TO OTHER SPECIFIED FACTORS, INI 02/02/2018 HENRY THOPMSON TRIBUNAL MEMBER Ot Y99.8 OTHER EXTERNAL CAUSE STATUS 02/02/2018 KINGSLEY SADLER R CERTIFIED MEDICAL ASSISTANT Ot Z12.31 ENCNTR SCREEN MAMMOGRAM FOR MALIGNANT [...] MD Ot Z91.040 LATEX ALLERGY STATUS 02/04/2018 PTARICIO ONEIL MD Ot Z98.890 OTHER SPECIFIED POSTPROCEDURAL [...] BREATH 02/05/2018 PATRICIO ONEIL MD Ot Z79.52 TIP BANDER (CURRENT) USE OF SYSTEMIC STER 02/05/2018 PATRICIO [...] Ot 782.3 EDEMA 04/30/2018 DHARMESH, MOISES A CERTIFIED MEDICAL ASSISTANT Ot 611.71 MASTODYNIA 04/30/2018 HENRY THOMPSON TRIBUNAL MEMBER Ot S83.281A OTH TEAR OF LAT MENSC, CURRENT INJURY, R 04/30/2018 HENRY THOMPSON TRIBUNAL MEMBER Ot X58.XXXA EXPOSURE TO OTHER SPECIFIED FACTORS, INI 04/30/2018 HENRY THOMPSON TRIBUNAL MEMBER Ot Y99.8 OTHER EXTERNAL CAUSE STATUS 04/30/2018 KINGSLEY SADLER CERTIFIED MEDICAL ASSISTANT Ot Z12.31 ENCNTR SCREEN MAMMOGRAM FOR MALIGNANT NE 05/01/2018 LIBIA RODRIGUEZ MD (DDU) Ot G89.29 OTHER CHRONIC PAIN 05/01/2018 LIBIA RODRIGUEZ MD (CHRISU) Ot M54.5 LOW BACK PAIN 05/01/2018 LIBIA RODRIGUEZ MD (DDU) Ot Z02.71 ENCOUNTER FOR DISABILITY DETERMINATION 05/09/2018 MACY TAMAYO TRIBUNAL MEMBER Ot 214.9 LIPOMA NOS 05/09/2018 MACY TAMAYO TRIBUNAL MEMBER Ot 278.01 MORBID OBESITY 05/09/2018 MACY TAMAYO TRIBUNAL MEMBER Ot 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 05/09/2018 MACY TAMAYO TRIBUNAL MEMBER Ot 782.3 EDEMA 05/09/2018 MOISES BARROSO CERTIFIED MEDICAL ASSISTANT Ot 611.71 MASTODYNIA 05/09/2018 HENRY THOMPSON TRIBUNAL MEMBER Ot S83.281A OTH TEAR OF LAT MENSC, CURRENT INJURY, R 05/09/2018 HENRY THOMPSON TRIBUNAL MEMBER Ot X58.XXXA EXPOSURE TO OTHER SPECIFIED FACTORS, INI 05/09/2018 HENRY THOMPSON TRIBUNAL MEMBER Ot Y99.8 OTHER EXTERNAL CAUSE STATUS 05/09/2018 KINGSLEY SADLER CERTIFIED MEDICAL ASSISTANT Ot Z12.31 ENCNTR SCREEN MAMMOGRAM FOR MALIGNANT NE 05/09/2018 LIBIA RODRIGUEZ MD (DDU) Ot G89.29 OTHER CHRONIC PAIN 05/09/2018 LIBIA RODRIGUEZ MD (CHRISU) Ot M54.5 LOW BACK PAIN 05/09/2018 LIBIA RODRIGUEZ MD (DDU) Ot Z02.71 ENCOUNTER FOR DISABILITY DETERMINATION Procedures Code Description [place] [address] MAMMOGRAM, SCREENING 03/29/2012 56174 CULTURE UROGENITAL 03/29/2012 07030 GC/CHLAM PROBE (STATE) 03/29/2012 33892 MICROALBUMIN 04/04/2012 98497 A1C (IN-HOUSE) 04/04/2012 80193 MICRO ALBUMIN-IN HOUSE 04/04/2012 40445 ROUTINE VENIPUNCTURE 06/26/2012 42671 ESR/SED RATE 06/26/2012 31863 CMP 06/26/2012 28921 LIPID PANEL 06/26/2012 19442 TSH 06/26/2012 40574 CBC 06/26/2012 50468 PTT (THROMBOPLASTIN TIME, PARTIAL) 06/26/2012 07824 CRP 06/26/2012 ANAANA OPAL ANALYZER (SCREEN) 06/26/2012 09855 A1C (IN-HOUSE) 07/04/2012 Laina Camacho 07/05/2012 97246 ROUTINE VENIPUNCTURE 08/08/2012 95838 CMP 08/08/2012 8915932 GFR CALC (RESULT ONLY) 08/08/2012 77392 CBC 08/08/2012 66703 CRP 08/08/2012 14846 CPK 08/08/2012 78435 ESR/SED RATE 08/08/2012 87641 XRAY CHEST 2 VIEW 08/10/2012 83265 UA W/MICROSCOPY 08/10/2012 17955 CARDIOLIPIN ANTIBODY 08/10/2012 07722 ROUTINE VENIPUNCTURE 08/20/2012 47376 CMP 08/20/2012 5329823 GFR CALC (RESULT ONLY) 08/20/2012 25773 CPK 08/20/2012 77387 HEPATITIS PROFILE 08/20/2012 43041 ROUTINE VENIPUNCTURE 10/17/2012 00600 A1C (IN-HOUSE) 10/17/2012 25186 CMP 10/18/2012 59574 CBC 10/18/2012 67470 A1C (IN-HOUSE) 01/23/2013 21895 THERAPUTIC INJ SQ/IM 02/07/2013 54658 CBC 02/07/2013 73424 CMP 02/07/2013 4126535 GFR CALC (RESULT ONLY) 02/07/2013 07540 ROUTINE VENIPUNCTURE 06/14/2013 47441 MYOGLOBIN 06/14/2013 49566 TSH 06/14/2013 92528 A1C (IN-HOUSE) 06/14/2013 98742 CBC 06/14/2013 78539 CMP 06/14/2013 5449816 GFR CALC (RESULT ONLY) 06/14/2013 58263 A1C (IN-HOUSE) 08/09/2013 20279 ROUTINE VENIPUNCTURE 09/09/2013 31362 CPK 09/09/2013 36692 MYOGLOBIN 09/09/2013 34262 TSH 09/09/2013 51898 CBC 09/09/2013 05648 CMP 09/09/2013 57945 MAGNESIUM 09/09/2013 1262979 GFR CALC (RESULT ONLY) 09/09/2013 44613 US SOFT TISSUE (SPECIFY LOCATION) 10/14/2013 43413 OXIMETRY 10/14/2013 80754 ROUTINE VENIPUNCTURE 11/27/2013 77291 CMP 11/27/2013 09074 MYOGLOBIN 11/27/2013 01459 CBC 11/27/2013 97342 SED/ESR RATE RML 11/27/2013 25607 MICRO ALBUMIN-IN HOUSE 11/27/2013 89200 A1C (IN-HOUSE) 11/27/2013 INTERNAL SHERRIE BLACKBURN 01/01/2014 54410 ROUTINE VENIPUNCTURE 03/04/2014 96954 A1C (IN-HOUSE) 03/04/2014 98419 CBC 03/04/2014 1317870 GFR CALC (RESULT ONLY) 03/04/2014 68643 CMP 03/04/2014 94265 PSYCH DIAGNOSTIC EVALUATION 03/20/2014 29410 PSYTX PT&/FAMILY 45 MINUTES 04/02/2014 22169 UA W/ CULTURE IF INDICATED 04/15/2014 90415 CULTURE URINE 04/17/2014 25407 MAMMOGRAM DX, MARIANA 04/22/2014 30602 REMOVAL OF NAIL BED 05/06/2014 18253 PAP SMEAR 05/12/2014 Q0091 PAP SMEAR OBTAIN SMEAR 05/12/2014 22508 ROUTINE VENIPUNCTURE 05/20/2014 75893 BMP 05/20/2014 85424 MAGNESIUM 05/20/2014 47992 PSYTX PT&/FAMILY 30 MINUTES 05/26/2014 61379 ROUTINE VENIPUNCTURE 09/08/2014 10773 A1C (RML) 09/08/2014 5553079 GFR CALC (RESULT ONLY) 09/08/2014 36001 CMP 09/08/2014 07682 LIPID PANEL 09/08/2014 Results Test Result Range [...] NRG STATEMENT OF ADEQUACY: NRG INTERPRETATION/RESULT: NRG MAC OPERATOR: KEERTHI HPV mRNA E6/E7, SUREPATH VIAL Not Detected NOT DETECTED REVIEW MAC OPERATOR: EKERTHI LIPID PANEL - 06/23/17 08:09 CHOLESTEROL, TOTAL 178 mg/dL <200 HDL CHOLESTEROL 68 mg/dL >50 TRIGLYCERIDES 86 mg/dL <150 LDL-CHOLESTEROL 92 mg/dL (calc) NRG CHOL/HDLC RATIO 2.6 (calc) <5.0 NON HDL CHOLESTEROL 110 mg/dL (calc) <130 CULTURE, URINE - 07/25/17 13:10 CULTURE, URINE, ROUTINE SEE NOTE NRG PDM - 09 PANEL (PROFILE 1) - 01/25/18 13:10 Prescribed Drug 1 [place](TM) NRG Creatinine 35.1 mg/dL > or=20.0 pH [...] panel - 05/09/18 22:22 Serum or plasma sodium measurement (moles/volume) 125 mmol/L 135-145 Serum or plasma potassium measurement (moles/volume) 4.9 [...] protein measurement (mass/volume) 1.14 mg /dL 0.00-0.50 Complete urinalysis with reflex to culture - 05/09/18 22:36 Urine color determination YELLOW NRG Urine clarity determination CLEAR NRG Urine pH measurement by test strip 6 5-9 Specific gravity of urine by test strip 1.010 1.016- 1.022 Urine protein assay by test strip, semi-quantitative NEGATIVE NEGATIVE Urine glucose detection by automated test strip 4+ NEGATIVE Erythrocytes detection in urine sediment by light microscopy 2+ NEGATIVE Urine ketones detection by automated test strip NEGATIVE NEGATIVE Urine nitrite detection by test strip NEGATIVE NEGATIVE Urine total bilirubin detection by test strip NEGATIVE NEGATIVE Urine urobilinogen measurement by automated test strip (mass/volume) NORMAL NORMAL Urine leukocyte esterase detection by dipstick 3+ NEGATIVE Automated urine sediment erythrocyte count by microscopy (number/high power field) [HPF] NRG Automated urine sediment leukocyte count by microscopy (number/high power field ) > [HPF] NRG Bacteria detection in urine sediment by light microscopy FEW NRG Squamous epithelial cells detection in urine sediment by light microscopy 0-2 NRG Crystals detection in urine sediment by light microscopy NONE NRG Casts detection in urine sediment by light microscopy NONE NRG Mucus detection in urine sediment by light microscopy NEGATIVE NRG Complete urinalysis with reflex to culture YES NRG Urine Trichomonas species detection by light microscopy FEW NRG Capillary blood glucose measurement by glucometer (mass/volume) - 05/10/18 00: 09 Capillary blood glucose measurement by glucometer (mass/volume) 445 mg/dL 70-110 Serum or plasma lactate measurement (moles/volume) - 05/10/18 00:22 Serum or plasma lactate measurement (moles/volume) 2.80 mmol/L 0.50-2.00 Encounters ACCT No. Visit Date/Time Discharge Status Pt. Type Provider Facility Loc./Unit Complaint [id number] 09/23/2014 09:21:00 09/23/2014 23:59:59 CLS Outpatient YUKI BUSH APRN [id number] 09/08/2014 09:50:00 09/08/2014 23:59:59 CLS Outpatient MACY TAMAYO APRN [id number] 09/03/2014 17:57:00 09/03/2014 23:59:59 CLS Outpatient MACY TAMAYO APRN [id number] 07/11/2014 16:23:00 07/11/2014 23:59:59 CLS Outpatient YUKI BUSH APRN [id number] 06/30/2014 10:45:00 06/30/2014 23:59:59 CLS Outpatient MAXWELL NIETO, MARLENE Dickey [id number] 05/26/2014 10:32:00 05/26/2014 23:59:59 CLS Outpatient SHERRIE BLACKBURN MD [id number] 05/20/2014 14:22:00 05/20/2014 23:59:59 CLS Outpatient MACY TAMAYO APRN [id number] 05/08/2014 13:58:00 05/08/2014 23:59:59 CLS Outpatient YUKI BUSH APRN [id number] 05/08/2014 13:58:00 05/08/2014 23:59:59 CLS Outpatient YUIK BUSH APRN [id number] 05/06/2014 15:47:00 05/06/2014 23:59:59 CLS Outpatient MACY TAMAYO APRN [id number] 04/21/2014 10:30:00 04/21/2014 23:59:59 CLS Outpatient MOISES BARROSO APRN [id number] 04/15/2014 15:36:00 04/15/2014 23:59:59 CLS Outpatient SHERRIE BLACKBURN MD [id number] 04/04/2014 09:55:00 04/04/2014 23:59:59 CLS Outpatient SHERRIE BLACKBURN MD [id number] 04/02/2014 13:01:00 04/02/2014 23:59:59 CLS Outpatient MARLENE ARREOLA PHD [id number] 03/20/2014 14:03:00 03/20/2014 23:59:59 CLS Outpatient MARLENE ARREOLA PHD [id number] 03/19/2014 14:54:00 03/19/2014 23:59:59 CLS Outpatient BELKIS MG MACY Claudine [id number] 03/04/2014 11:36:00 03/04/2014 23:59:59 CLS Outpatient SHERRIE BLACKBURN MD [id number] 02/03/2014 15:40:00 02/03/2014 23:59:59 CLS Outpatient SHERRIE BLACKBURN MD [id number] 01/01/2014 15:04:00 01/01/2014 23:59:59 CLS Outpatient BELKIS SAURAVMACY [id number] 11/27/2013 15:58:00 11/27/2013 23:59:59 CLS Outpatient BELKIS MGMACY [id number] 10/14/2013 15:28:00 10/14/2013 23:59:59 CLS Outpatient BELKIS KOROMANMACY [id number] 09/09/2013 08:45:00 09/09/2013 23:59:59 CLS Outpatient BELKIS MG MACY Chow [id number] 08/09/2013 16:21:00 08/09/2013 23:59:59 CLS Outpatient BELKIS KOROMANMACY Claudine [id number] 06/14/2013 11:12:00 06/14/2013 23:59:59 CLS Outpatient BELKIS MG MACY Claudine [id number] 03/13/2013 15:49:00 03/13/2013 23:59:59 CLS Outpatient BELKIS CERTIFIED MEDICAL ASSISTANTMACY Claudine [id number] 02/11/2013 15:24:00 02/11/2013 23:59:59 CLS Outpatient BELKIS MG MACY Claudine [id number] 09/04/2012 15:40:00 09/04/2012 23:59:59 CLS Outpatient MACY TAMAYO APRN [id number] 08/20/2012 08:50:00 08/20/2012 23:59:59 CLS Outpatient [id number] 08/08/2012 14:49:00 08/08/2012 23:59:59 CLS Outpatient LAINA STANLEY MD [id number] 07/04/2012 18:16:00 07/04/2012 23:59:59 CLS Outpatient MACY TAMAYO APRN [id number] 06/26/2012 09:06:00 06/26/2012 23:59:59 CLS Outpatient MACY TAMAYO APRN [id number] 06/20/2012 17:28:00 06/20/2012 23:59:59 CLS Outpatient [id number] 04/18/2012 15:54:00 04/18/2012 23:59:59 CLS Outpatient [id number] 02/29/2012 18:24:00 02/29/2012 23:59:59 CLS Outpatient LINDSAY STRONG DO [id number] 02/07/2013 10:16:00 Document Registration [id number] 01/23/2013 15:37:00 Document Registration [id number] 10/17/2012 15:48:00 Document Registration [id number] 09/09/2016 08:41:00 Document Registration [id number] 09/09/2016 13:05:00 Document Registration [id number] 01/30/2016 13:05:00 Document Registration [id number] 05/02/2018 09:20:00 05/02/2018 23:59:59 CLS Outpatient MACY TAMAYO APRN [facility] [place] [id number] 03/29/2018 14:10:00 Document Registration [id number] 02/06/2018 11:40:00 Document Registration [id number] 01/25/2018 13:00:00 Document Registration [id number] 07/25/2017 12:20:00 Document Registration [id number] 06/23/2017 08:00:00 Document Registration [id number] 06/22/2017 10:40:00 Document Registration [id number] 04/30/2018 09:40:00 04/30/2018 23:59:59 CLS Out[id number] 02/05/2018 10:17:00 02/05/2018 11:06:00 DIS Emergency THAD SAEZ, PATRICIO Phillips [facility] SOA [id number] 02/04/2018 06:22:00 02/04/2018 10:42:00 DIS Emergency THAD SAEZ, PATRICIO Phillips [facility] ER FACE SWOLLEN,HEADACHE [id number] 02/02/2018 23:15:00 02/03/2018 02:45:00 DIS Emergency LIA TORRES MD [facility] ER NAUSEA,ESPINAL,LEFT EYE NOT GETTING BETTER [id number] 06/29/2017 08:47:00 06/29/2017 23:59:59 CLS Outpatient KINGSLEY SADLER CERTIFIED MEDICAL ASSISTANT [facility] RAD SCREENING [id number] 04/08/2016 09:02:00 04/08/2016 23:59:59 CLS Outpatient HENRY [facility] [employer] [facility] RAD [id number] 04/29/2014 12:24:00 04/29/2014 23:59:59 CLS Outpatient MOISES BARROSO CERTIFIED MEDICAL ASSISTANT [facility] RAD BILATERAL BREAST PAIN [id number] 10/25/2013 15:33:00 10/25/2013 23:59:59 CLS Outpatient MACY TAMAYO [employer] [facility] RAD RT/LFT BUTTOCKS LIPOMA [id number] 05/09/2018 23:18:00 ACT Inpatient ANA LUISA BLACK MD [facility] 4TH HYPERGLYCEMIA,ARF,UTI [id number] 04/29/2014 12:22:00 Document Registration [id number] 11/19/2010 10:13:00 Document Registration [id number] 11/12/2010 20:18:00 Document Registration [id number] 08/27/2010 15:32:00 Document Registration
[2018-05-10] MEDS: NS IV 1000 ML 1,000 ML IV SCH ×3 (02:15→17:11)
[2018-05-10] MEDS ORDERED: ONDANSETRON 4 MG/2 ML (SDV) Z0FRAN IV PRN (02:15)
[2018-05-10] MEDS ORDERED: inSUlin ASPART (NovoLOG) 1 UNIT/0.01 ML (CHARGE PER UNIT) SC SCH (02:45)
[2018-05-10] MEDS ORDERED: inSUlin ASPART (NovoLOG) 1 UNIT/0.01 ML (CHARGE PER UNIT) ONE (04:55)
[2018-05-10 06:04] LABS: BASOPHILS % (AUTO) 0 % (0-10); EOSINOPHILS # (AUTO) 0.1 10^3/uL (0.0-0.3); EOSINOPHILS % (AUTO) 1 % (0-10); HEMATOCRIT 35 % (35-52); HEMOGLOBIN 12.1 G/DL (11.5-16.0); LYMPHOCYTES % (AUTO) 27 % (12-44); MEAN CORPUSCULAR HEMOGLOBIN 28 PG (25-34); MEAN CORPUSCULAR HGB CONC 35 G/DL (32-36); MEAN CORPUSCULAR VOLUME 81 FL (80-99); MEAN PLATELET VOLUME 9.7 FL (7.4-10.4); MONOCYTES # (AUTO) 0.5 X 10^3 (0.0-1.0); MONOCYTES % (AUTO) 6 % (0-12); NEUTROPHILS % (AUTO) 66 % (42-75); PLATELET COUNT 219 10^3/uL (130-400); RED BLOOD COUNT 4.31 10^6/uL (4.35-5.85); RED CELL DISTRIBUTION WIDTH 16.5 % (10.0-14.5); WHITE BLOOD COUNT 7.6 10^3/uL (4.3-11.0)
[2018-05-10 06:48] LABS: ALANINE AMINOTRANSFERASE 36 U/L (0-55); ALBUMIN 3.4 GM/DL (3.2-4.5); ALKALINE PHOSPHATASE 79 U/L (40-136); BILIRUBIN,TOTAL 0.4 MG/DL (0.1-1.0); BUN/CREATININE RATIO 16; CALCIUM 8.7 MG/DL (8.5-10.1); CARBON DIOXIDE 24 MMOL/L (21-32); CHLORIDE 97 MMOL/L (98-107); CREATININE SERUM 0.99 MG/DL (0.60-1.30); GFR ESTIMATED > 60; GLUCOSE 304 MG/DL (70-105); POTASSIUM 3.9 MMOL/L (3.6-5.0); SODIUM 131 MMOL/L (135-145)
--- NOTE | 2018-05-10 07:42 | Diagnostic Imaging Report ---
Indication: Cough and congestion PA and lateral chest Heart size and pulmonary vascularity are normal. Lungs are clear. There are no effusions or pneumothoraces. Impression: Negative chest. Dictated by: Dictated on workstation # [id number]
[2018-05-10] MEDS: inSUlin ASPART (NovoLOG) 1 UNIT/0.01 ML (CHARGE PER UNIT) SC SCH ×3 (08:15→22:00)
--- NOTE | 2018-05-10 08:48 | ST Dysphagia Evaluation ---
Speech Evaluation-General Medical Diagnosis UTI Onset Date: May 10, 2018 Therapy Diagnosis Therapy Diagnosis: Oropharyngeal Dysphagia Precautions Precautions: Aspiration Precautions/Isolations: Fall Prevention, Standard Precautions Medical History Pertinent Medical History: DM, Smoking Reviewed History: Yes Speech PLF/Current-Dysphagia Prior Level of Function Per patient, she has difficulty primarily with liquids but also with bread products if they are too dry. The patient consumes a regular diet with thin liquids, however, states she feels food and drinks "get stuck on the right side ". Subjective Patient was pleasant and cooperative. Cognitive Status Patient Orientation: Person, Place, Time, Situation Patient was oriented to all concepts. Oral Motor Skills Dentition: Edentalous Current Food Consistancy: Regular, Thin Liquids Ability to Follow Directions: Excellent Oral Expression Ability: No Impairment Voice Voice Phonatory-Based Quality: Hoarse Voice Pitch: Mildly Low Voice Loudness: Mildly Soft/Quiet Face Facial Symmetry: Symmetrical Oral-Facial Assessment Oral-Facial Dentition: Normal Labial Seal Description: Reduced ROM, Weak Puff Cheeks: Reduced Strength Lingual Protrusion: Normal Lingual ROM: Normal Lingual Strength: Normal Gag Reflex Response: Normal Volitional Dry Swallow: Yes Voluntary Cough: Yes Can Clear Throat Volitionally: Yes Productive Cough: No (Patient exhibits a frequent cough following oral intake of liquids which she states she has had for a few years.) Dysphagia Evaluation Pharyngeal Phase: Clears Throat Funct. Velo/Pharyngeal Symptom: Clears Throat, Cough After Swallow Dietary Recommendations: Mechanical Soft Liquid Recommendations: Thin Patient has been recommended for a MBS to be completed. Swallowing Precautions: Alternate Liquids/Solids, Chin Tuck, Double Swallow, Decreased Bolus 1/2 Tsp, Decreased Rate of Oral Intake, Liquids from Straw, Small Bites and Sips, Sitting Upright 90 Degrees, Sitting 90 Degrees 30 Post Intake, Turn Head Right Dysphagia Evaluation Summary Mrs. Oneil is a 52-year-old female, referred to speech language pathology for dysphagia evaluation and treatment. The patient's past medical history is significant for swallowing problems primarily with liquids. Patient was noted to cough frequently post swallow of liquids during the evaluation. Patient stated she had a feeling of something being stuck in the right side of her throat which causes her to cough. Patient stated this was normal for her. She also reported that she always needed extra sauce or condiments on items with bread for the moisture to keep from choking. Barriers to Learning Patient is reported to be non compliant with blood sugar control. Speech Short Term Goals Short Term Goals Short Term Goals 1) Patient will tolerate trials of least restrictive diet without signs/ symptoms of aspiration. 2) Patient will recall swallowing strategies independently. 3) Patient will demonstrate dysphagia exercises with 90% accuracy, independently. Speech Prison Goals Dining Car Conductor Goals Patient will tolerate least restrictive diet without signs/symptoms of aspiration or laryngeal penetration. Speech-Plan Patient/Family Goals Patient/Family Goals: Patient will return home with her with least restrictive diet in place and training in compensatory strategies. Treatment Plan Speech Therapy Treatment Plan: Continue Plan of Care Patient will be trained in strategies for safest oral intake of LRD following MBS. Treatment Duration: May 11, 2018 Frequency: 5 times per week Estimated Hrs Per Day: .5 hour per day Rehab Potential: Good Barriers to Learning: Patient's level of compliance. Pt/Family Agrees to Plan: Yes Safety Risks/Education Teaching Recipient: Patient, Significant Other Teaching Methods: Discussion Response to Teaching: Verbalize Understanding Education Topics Provided: Safety of oral intake. Time Speech Therapy Time In: 08:15 Speech Therapy Time Out: 18:35 Total Billed Time: 20 Billed Treatment Time 1, DYSEVS Yes Speech GCodes Functional Limitation-Current Current: SWALCUR Modifier: CJ Functional Limitation-Goal Goal: SWALGOAL Modifier: VOLODYMYR BARBOUR May 10, 2018 08:48
[2018-05-10] MEDS ORDERED: L.AC1CAP6 PO (09:11)
[2018-05-10] MEDS ORDERED: PRED5DRO17 OS (09:11)
[2018-05-10] MEDS ORDERED: SPIR25TA5 PO (09:11)
[2018-05-10] MEDS ORDERED: GLIP5TAB13 PO (09:11)
[2018-05-10] MEDS ORDERED: PIOG30TA71 PO (09:11)
[2018-05-10] MEDS ORDERED: DULO60CA58 PO (09:11)
[2018-05-10] MEDS ORDERED: GABA600T2 PO (09:11)
[2018-05-10] MEDS ORDERED: LORA10TA7 PO (09:11)
[2018-05-10] MEDS ORDERED: LISI1TAB10 PO (09:11)
[2018-05-10] MEDS ORDERED: METH2.5T PO (09:11)
[2018-05-10] MEDS ORDERED: HYDR-3820 PO (09:11)
[2018-05-10] MEDS ORDERED: POTA20TA15 PO (09:11)
[2018-05-10] MEDS ORDERED: PSEU60TA20 PO (09:11)
[2018-05-10] MEDS ORDERED: FURO20TA4 PO (09:11)
[2018-05-10] MEDS ORDERED: OMEP20CA12 PO (09:11)
[2018-05-10] MEDS ORDERED: FOLI1TAB24 PO (09:11)
[2018-05-10] MEDS ORDERED: POLY15DR14 OS (09:11)
[2018-05-10] MEDS: metroNIDAZOLE 500 MG (FLAGYL) TAB PO SCH ×2 (09:33→22:00)
[2018-05-10] MEDS ORDERED: CATHETER FLUSH 10 ML SYR IV PRN (17:45)
[2018-05-10] MEDS ORDERED: HYDROcodone/APAP 10 MG/325 MG (LORTAB) TAB PO PRN (20:30)
--- NOTE | 2018-05-10 20:33 | History & Physicial (CHS) ---
HPI History of Present Illness: 52 yo F on fpc steroids for dermatomyositis that presented to ER with uncontrolled DM and having blood sugars in the 600s for 5 days. States that she has been feeling bad and urinating more frequently. She has tried to get blood sugars down but has not been able to get them down. She is only taking PO medications at this time. She has been on insulin before but has not been on it for a while. Source: patient Date seen by provider: May 10, 2018 Time Seen by Provider: 11:25 Attending Physician Sylvie Orozco MD [place] [place] Consult Date of Admission May 09, 2018 at 23:18 Home Medications Home Medications Reviewed patient Home Medication Reconciliation performed by pharmacy medication reconciliations oscillograph technician and/or nursing. Patients Allergies have been reviewed. Allergies Coded Allergies: latex (Verified Allergy, Unknown, 02/03/18) sertraline (Verified Allergy, Unknown, 02/03/18) aspirin (Unverified Adverse Reaction, Severe, 11/12/10) JIR-Ieaect-Tjedqd Hx Patient Social History Alcohol Use: Denies Use Recreational Drug Use: No Smoking Status: Never a Smoker Recent Foreign Travel: No Contact w/other who traveled: No Recent Hopitalizations: No Recent Infectious Disease Expo: No Physical Abuse Screen: No Sexual Abuse: No Immunizations Up To Date Tetanus Booster (TDap): Unknown Past Medical History Dermatomyositis NIDDM A1c 13 Family Medical History Significant Family History: No Pertinent Family Hx Review of Systems (CHC) Constitutional: no symptoms reported; No chills, No fever EENTM: no symptoms reported Respiratory: no symptoms reported; No cough, No dyspnea on exertion, No short of breath Cardiovascular: no symptoms reported; No chest pain, No edema, No palpitations Gastrointestinal: No abdominal pain, No constipation, No diarrhea; loss of appetite; No nausea, No vomiting Genitourinary: No dysuria; frequency; No hematuria Musculoskeletal: joint swelling Skin: no symptoms reported Psychiatric/Neurological: No Symptoms Reported Reviewed Test Results Reviewed Test Results Lab Laboratory Tests Test 05/09/18 22:17 05/09/18 22:22 05/09/18 22:36 05/10/18 00:09 Range/Units Glucometer > 600 *H 445 *H 70-110 MG/DL White Blood Count 9.1 4.3-11.0 10^3/uL Red Blood Count 4.74 4.35-5.85 10^6/uL Hemoglobin 13.3 11.5-16.0 G/DL Hematocrit 38 35-52 % Mean Corpuscular Volume 81 80-99 FL Mean Corpuscular Hemoglobin 28 25-34 PG Mean Corpuscular Hemoglobin Concent 35 32-36 G/DL Red Cell Distribution Width 16.6 H 10.0-14.5 % Platelet Count 231 130-400 10^3/uL Mean Platelet Volume 9.8 7.4-10.4 FL Neutrophils (%) (Auto) 76 H 42-75 % Lymphocytes (%) (Auto) 19 12-44 % Monocytes (%) (Auto) 6 0-12 % Eosinophils (%) (Auto) 0 0-10 % Basophils (%) (Auto) 0 0-10 % Neutrophils # (Auto) 6.9 1.8-7.8 X 10^3 Lymphocytes # (Auto) 1.7 1.0-4.0 X 10^3 Monocytes # (Auto) 0.5 0.0-1.0 X 10^3 Eosinophils # (Auto) 0.0 0.0-0.3 10^3/uL Basophils # (Auto) 0.0 0.0-0.1 10^3/uL Sodium Level 125 *L 135-145 MMOL/L Potassium Level 4.9 3.6-5.0 MMOL/L Chloride Level 87 L 98-107 MMOL/L Carbon Dioxide Level 23 21-32 MMOL/L Anion Gap 15 H 5-14 MMOL/L Blood Urea Nitrogen 21 H 7-18 MG/DL Creatinine 1.60 H 0.60-1.30 MG/DL Estimat Glomerular Filtration Rate 41 BUN/Creatinine Ratio 13 Glucose Level 672 *H 70-105 MG/DL Lactic Acid Level 3.22 *H 0.50-2.00 MMOL/L Calcium Level 9.6 8.5-10.1 MG/DL Corrected Calcium 9.8 8.5-10.1 MG/DL Magnesium Level 2.1 1.8-2.4 MG/DL Total Bilirubin 0.3 0.1-1.0 MG/DL Aspartate Amino Transf (AST/SGOT) 22 5-34 U/L Alanine Aminotransferase (ALT/SGPT) 44 0-55 U/L Alkaline Phosphatase 110 40-136 U/L C-Reactive Protein High Sensitivity 1.14 H 0.00-0.50 MG/DL Total Protein 7.2 6.4-8.2 GM/DL Albumin 3.8 3.2-4.5 GM/DL Urine Color YELLOW Urine Clarity CLEAR Urine pH 6 5-9 Urine Specific [place] 1.010 L 1.016-1.022 Urine Protein NEGATIVE NEGATIVE Urine Glucose (UA) 4+ H NEGATIVE Urine Ketones NEGATIVE NEGATIVE Urine Nitrite NEGATIVE NEGATIVE Urine Bilirubin NEGATIVE NEGATIVE Urine Urobilinogen NORMAL NORMAL MG/DL Urine Leukocyte Esterase 3+ H NEGATIVE Urine RBC (Auto) 2+ H NEGATIVE Urine RBC 2-5 H /HPF Urine WBC >100 H /HPF Urine Squamous Epithelial Cells 0-2 /HPF Urine Crystals NONE /LPF Urine Bacteria FEW H /HPF Urine Casts NONE /LPF Urine Mucus NEGATIVE /LPF Urine Trichomonas FEW H /HPF Urine Culture Indicated YES Test 05/10/18 00:22 05/10/18 04:28 05/10/18 05:40 05/10/18 07:48 Range/Units Lactic Acid Level 2.80 *H 0.50-2.00 MMOL/L Glucometer 304 H 228 H 70-110 MG/DL White Blood Count 7.6 4.3-11.0 10^3/uL Red Blood Count 4.31 L 4.35-5.85 10^6/uL Hemoglobin 12.1 11.5-16.0 G/DL Hematocrit 35 35-52 % Mean Corpuscular Volume 81 80-99 FL Mean Corpuscular Hemoglobin 28 25-34 PG Mean Corpuscular Hemoglobin Concent 35 32-36 G/DL Red Cell Distribution Width 16.5 H 10.0-14.5 % Platelet Count 219 130-400 10^3/uL Mean Platelet Volume 9.7 7.4-10.4 FL Neutrophils (%) (Auto) 66 42-75 % Lymphocytes (%) (Auto) 27 12-44 % Monocytes (%) (Auto) 6 0-12 % Eosinophils (%) (Auto) 1 0-10 % Basophils (%) (Auto) 0 0-10 % Neutrophils # (Auto) 5.0 1.8-7.8 X 10^3 Lymphocytes # (Auto) 2.0 1.0-4.0 X 10^3 Monocytes # (Auto) 0.5 0.0-1.0 X 10^3 Eosinophils # (Auto) 0.1 0.0-0.3 10^3/uL Basophils # (Auto) 0.0 0.0-0.1 10^3/uL Sodium Level 131 L 135-145 MMOL/L Potassium Level 3.9 3.6-5.0 MMOL/L Chloride Level 97 L 98-107 MMOL/L Carbon Dioxide Level 24 21-32 MMOL/L Anion Gap 10 5-14 MMOL/L Blood Urea Nitrogen 16 7-18 MG/DL Creatinine 0.99 0.60-1.30 MG/DL Estimat Glomerular Filtration Rate > 60 BUN/Creatinine Ratio 16 Glucose Level 304 H 70-105 MG/DL Calcium Level 8.7 8.5-10.1 MG/DL Corrected Calcium 9.2 8.5-10.1 MG/DL Total Bilirubin 0.4 0.1-1.0 MG/DL Aspartate Amino Transf (AST/SGOT) 17 5-34 U/L Alanine Aminotransferase (ALT/SGPT) 36 0-55 U/L Alkaline Phosphatase 79 40-136 U/L Total Protein 6.0 L 6.4-8.2 GM/DL Albumin 3.4 3.2-4.5 GM/DL Test 05/10/18 12:23 05/10/18 16:28 Range/Units Glucometer 325 H 392 H 70-110 MG/DL Physical Exam-(CHC) Physical Exam Vital Signs VS - Last 72 Hours, by Label 05/09/18 05/10/18 05/10/18 05/10/18 22:14 00:37 00:46 01:45 Temp 97.8 97.2 Pulse 108 76 87 Resp 24 14 18 B/P (MAP) 116/64 (81) 121/73 (89) 107/56 (73) Pulse Ox 98 98 99 99 O2 Delivery Room Air Room Air Room Air Room Air 05/10/18 05/10/18 05/10/18 05/10/18 01:57 04:00 07:37 08:00 Temp 97.0 Pulse 100 92 91 Resp 18 B/P (MAP) 123/58 (79) Pulse Ox 94 98 O2 Delivery Room Air Room Air 05/10/18 05/10/18 05/10/18 05/10/18 08:00 12:00 13:00 15:35 Temp 97.4 97.9 97.8 Pulse 100 101 98 87 Resp 20 20 16 B/P (MAP) 126/76 (93) 119/61 (80) 120/63 (82) Pulse Ox 98 97 95 O2 Delivery Room Air Room Air Room Air 05/10/18 19:00 Pulse 100 Capillary Refill : Less Than 3 Seconds General Appearance: WD/WN, no apparent distress, obese HEENT: PERRL/EOMI Neck: non-tender, full range of motion, supple Respiratory: chest non-tender, lungs clear, normal breath sounds, no respiratory distress, no accessory muscle use Cardiovascular: normal peripheral pulses, regular rate, rhythm, no edema, no murmur Gastrointestinal: normal bowel sounds, non tender, soft, no organomegaly Back: no CVA tenderness, no vertebral tenderness Extremities: normal range of motion, non-tender, normal inspection, no pedal edema, no calf tenderness Neurologic/Psychiatric: no motor/sensory deficits, alert, normal mood/affect, oriented x 3 Skin: normal color, warm/dry Lymphatic: no adenopathy Assessment/Plan Assessment/Plan Admission Status: Observation (1) Non-insulin dependent type 2 diabetes mellitus Status: Chronic Assessment & Plan: - Start hs insulin to help with blood sugar control, A1c last week in clinic 13 (2) intermediate systemic steroid user Status: Chronic (3) Dermatomyositis Status: Chronic (4) Urinary tract infection Status: Acute Assessment & Plan: - Continue AB, culture pending Qualifiers: Qualified Codes: N39.0 - Urinary tract infection, site not specified (5) Acute renal failure Status: Resolved Qualifiers: Qualified Codes: N17.9 - Acute kidney failure, unspecified (6) Trichomonas infection Status: Acute Assessment & Plan: - Continue Flagyl Clinical Quality Measures DVT/VTE Risk/Contraindication: Risk Factor Score Per Nursin RFS Level Per Nursing on Admit: 4+=Very High Copy Copies To 1: Carolina JON APRN GAULT, HOLLY R MD May 10, 2018 20:33
[2018-05-10] MEDS ORDERED: inSUlin DETERMIR 1 UNIT/0.01 ML (LEVEMIR) CHARGE PER UNIT SQ SCH (21:00)
[2018-05-10] MEDS ORDERED: cefTRIAXone 1 GM/NS 50 ML IVPB IV SCH ×2 (21:00)
[2018-05-10] MEDS ORDERED: inSUlin DETERMIR 1 UNIT/0.01 ML (LEVEMIR) CHARGE PER UNIT SQ ONE (21:54)
[2018-05-10] MEDS: CATHETER FLUSH 10 ML SYR IV SCH (22:01)
[2018-05-11 04:00] VITALS: BP 112/66
[2018-05-11 05:58] LABS: BASOPHILS % (AUTO) 0 % (0-10); EOSINOPHILS # (AUTO) 0.1 10^3/uL (0.0-0.3); EOSINOPHILS % (AUTO) 2 % (0-10); HEMATOCRIT 35 % (35-52); HEMOGLOBIN 11.9 G/DL (11.5-16.0); LYMPHOCYTES # (AUTO) 1.6 X 10^3 (1.0-4.0); LYMPHOCYTES % (AUTO) 27 % (12-44); MEAN CORPUSCULAR HEMOGLOBIN 28 PG (25-34); MEAN CORPUSCULAR HGB CONC 34 G/DL (32-36); MEAN CORPUSCULAR VOLUME 83 FL (80-99); MONOCYTES # (AUTO) 0.5 X 10^3 (0.0-1.0); MONOCYTES % (AUTO) 9 % (0-12); NEUTROPHILS # (AUTO) 3.6 X 10^3 (1.8-7.8); NEUTROPHILS % (AUTO) 62 % (42-75); PLATELET COUNT 193 10^3/uL (130-400); RED BLOOD COUNT 4.24 10^6/uL (4.35-5.85); RED CELL DISTRIBUTION WIDTH 16.6 % (10.0-14.5); WHITE BLOOD COUNT 5.8 10^3/uL (4.3-11.0)
[2018-05-11] MEDS: CATHETER FLUSH 10 ML SYR IV SCH (06:04)
[2018-05-11] MEDS: inSUlin ASPART (NovoLOG) 1 UNIT/0.01 ML (CHARGE PER UNIT) SC SCH ×2 (06:04→11:36)
[2018-05-11 06:13] LABS: BUN/CREATININE RATIO 9; CALCIUM 8.5 MG/DL (8.5-10.1); CARBON DIOXIDE 22 MMOL/L (21-32); CHLORIDE 103 MMOL/L (98-107); CREATININE SERUM 0.86 MG/DL (0.60-1.30); GFR ESTIMATED > 60; GLUCOSE 246 MG/DL (70-105); SODIUM 135 MMOL/L (135-145)
[2018-05-11] MEDS ORDERED: NON-FORMULARY MEDICATION 1 EA EA (Duloxetine HCl 60 MG) PO SCH (07:00)
[2018-05-11 08:00] VITALS: BP 130/57
--- NOTE | 2018-05-11 08:56 | Speech Therapy Daily Note ---
Speech Daily Progress Note Subjective Date Seen by Provider: May 11, 2018 Time Seen by Provider: 00:20 Patient was eating breakfast when I arrived. Patient was noted to continue coughing frequently. Objective Patient was trained in compensatory strategies for safer oral intake. Patient was able to follow through at 80% with min to mod verbal cues. Speech Short Term Goals Short Term Goals Short Term Goals 1) Patient will tolerate trials of least restrictive diet without signs/ symptoms of aspiration. 2) Patient will recall swallowing strategies independently. 3) Patient will demonstrate dysphagia exercises with 90% accuracy, independently. Speech Flight Security Specialist Goals Mcfp Goals Patient will tolerate least restrictive diet without signs/symptoms of aspiration or laryngeal penetration. Speech-Plan Patient/Family Goals Patient/Family Goals: Patient will return home with her when she is released from the hospital. Treatment Plan Speech Therapy Treatment Plan: Continue Plan of Care Patient was pleasant and cooperative. Treatment Duration: May 12, 2018 Frequency: 5 times per week Estimated Hrs Per Day: .5 hour per day Rehab Potential: Good Barriers to Learning: Patient continues to have frequent coughing. Pt/Family Agrees to Plan: Yes Safety Risks/Education Teaching Recipient: Patient, Significant Other Teaching Methods: Demonstration, Discussion Response to Teaching: Verbalize Understanding, Return Demonstration Education Topics Provided: Safety of oral intake. Time Speech Therapy Time In: 08:20 Speech Therapy Time Out: 08:40 Total Billed Time: 20 Billed Treatment Time 1, DYST Yes Speech GCodes Functional Limitation-Current Current: SWALCUR Modifier: CJ Functional Limitation-Goal Goal: SWALGOAL Modifier: VOLODYMYR BARBOUR May 11, 2018 08:56
[2018-05-11] MEDS ORDERED: PANTOPRAZOLE 40 MG (PROTONIX) TAB PO SCH (09:00)
[2018-05-11] MEDS ORDERED: OMEPRAZOLE 20 MG (PriLOSEC) CAP NON-FORMULARY PO SCH (09:00)
[2018-05-11] MEDS ORDERED: DULoxetine 30 MG (CYMBALTA) CAP PO SCH (09:00)
[2018-05-11] MEDS ORDERED: SPIRONOLACTONE 25 MG (ALDACTONE) TAB PO SCH (09:00)
[2018-05-11] MEDS ORDERED: predniSONE 20 MG TAB PO SCH (09:00)
[2018-05-11] MEDS: metroNIDAZOLE 500 MG (FLAGYL) TAB PO SCH (10:01)
[2018-05-11 12:00] VITALS: BP 125/61
--- NOTE | 2018-05-11 12:07 | Discharge Summary ---
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 (3) Dermatomyositis Status: Chronic (4) Urinary tract infection Assessment & Plan: - Continue AB, culture pending 05/11- Sent home to complete 3 day course of antibiotics, culture neg Qualifiers: Qualified Codes: N39.0 - Urinary tract infection, site not specified Status: Acute (5) Acute renal failure Qualifiers: Qualified Codes: N17.9 - Acute kidney failure, unspecified Status: Resolved Resolution Date/Time: 05/10/18 @ 20:59 (6) Trichomonas infection Assessment & Plan: - Continue Flagyl Status: Resolved Resolution Date/Time: 05/11/18 @ 21:22 Chief Complaint/HPI Chief Complaint/HPI 52 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 States that she has been feeling bad and urinating more frequently. She has tried to get blood sugars down but has not been able to get them down. She is only taking PO medications at this time. She has been on insulin before but has not been on it for a while. Discharge Summary-Simple/Stand Consultations Discharge Physical Examination Allergies: Coded Allergies: latex (Verified Allergy, Unknown, 02/03/18) sertraline (Verified Allergy, Unknown, 02/03/18) aspirin (Unverified Adverse Reaction, Severe, 11/12/10) Vitals & I&Os Vital Sign - Last 12Hours Date Time Temp Pulse Resp B/P (MAP) Pulse Ox O2 Delivery O2 Flow Rate FiO2 05/11/18 08:00 Room Air 05/11/18 08:00 97.3 84 22 130/57 (81) 100 Intake and Output 05/11/18 00:00 Intake Total 1300 ml Balance 1300 ml General Appearance: Alert, Oriented X3, Cooperative, No Acute Distress HEENT: Mucous Memb Moist/[place] Respiratory: Clear to Auscultation, Normal Air Movement Cardiovascular: Regular Rate, No Murmurs Abdominal: Normal Bowel Sounds, Soft, No Tenderness, No Masses Extremities: No Edema, No Tenderness/Swelling Skin: No Rashes, No Breakdown Neuro: Normal Speech, Strength at 5/5 X4 Ext, Sensation Intact, Cranial Nerves 3-12 NL Psych/Mental Status: Mental Status NL, Mood NL Hospital Course See final discharge diagnosis. Discussion & Recommendations 52 yo F that was admitted due to poorly controlled DM 2/2 to chronic steroid use. During admission patient's blood sugars where better controlled with insulin. She was started on HS levemir and will call on Monday to see how blood sugars were over the weekend for possible adjustment. Sent home to complete course of antibiotics for UTI and Trichomonas infection. Patient will benefit from DM nurse education at [facility]. Close follow up with PCP at [facility] Discharge Condition at discharge stable Instructions to patient/family Please see electronic discharge instructions given to patient. Discharge Medications Reviewed and agree with Discharge Medication list on patient's Discharge Instruction sheet Clinical Quality Measures DVT/VTE Risk/Contraindication: Risk Factor Score Per Nursin RFS Level Per Nursing on Admit: 4+=Very High Copy Copies To 1: ANA LUISA ABDULLAHI MD May 11, 2018 12:07
[2018-05-11] MEDS ORDERED: NITR-65 PO (12:09)
[2018-05-11] MEDS ORDERED: INSU100V5 SQ (12:09)
[2018-05-11] MEDS ORDERED: METR-197 PO (12:09)
--- NOTE | 2018-05-11 12:12 | Discharge Instructions ---
Discharge [facility] Discharge Medications New, Converted or Re-Newed RX: Transmitted to Pharmacy New Medications: Nitrofurantoin Monohyd/M-Cryst (Macrobid 100 mg Capsule) 100 Mg Capsule 1 TAB PO BID, #6 CAP Insulin Determir (Levemir) 1,000 Units/10 Ml Soln 15 UNIT SQ HS for 30 Days, #30 EA Metronidazole (Metronidazole) 500 Mg Tablet 500 MG PO BID, #10 TAB Continued Medications: Albuterol Sulfate (Proventil Hfa) 6.7 Gm Hfa.aer.ad 2 PUFF INH Q4H PRN for SHORTNESS OF BREATH, INHALER Duloxetine HCl (Duloxetine HCl) 60 Mg Capsule.dr 60 MG PO 0700,1900, CAP Folic Acid (Folic Acid) 1 Mg Tablet 1 MG PO MoTuWeThFrSa, TAB DOES NOT TAKE ON SUNDAYS WHEN TAKING METHOTREXATE Furosemide (Furosemide) 20 Mg Tablet 20 MG PO DAILY, TAB Gabapentin (Gabapentin) 600 Mg Tablet 600 MG PO TID, TAB Glipizide (Glipizide) 5 Mg Tablet 5 MG PO 0700,1900, TAB Hydrocodone/Acetaminophen (Hydrocodon-Acetaminophn 10-325) 1 Each Tablet 1 TAB PO TID PRN for PAIN-MODERATE, TAB L.acidoph & Paracasei,B.lactis (Probiotic) 1 Each Capsule 2 CAP PO DAILY, CAP Lisinopril/Hydrochlorothiazide (Lisinopril-Hctz 20-25 mg Tab) 1 Each Tablet 1 TAB PO DAILY, TAB Loratadine (Loratadine) 10 Mg Tablet 10 MG PO DAILY, TAB Methotrexate Sodium (Methotrexate) 2.5 Mg Tablet 15 MG PO Sims, TAB TAKES 6 (2.5MG) TABLETS Omeprazole (Omeprazole) 20 Mg Capsule.dr 20 MG PO DAILY, CAP Pioglitazone HCl (Pioglitazone HCl) 30 Mg Tablet 30 MG PO DAILY, TAB Polyvinyl Alcohol/Povidone (Artificial Tears Drops) 15 Ml Drops 1 DROP OS QID, DROPS 30 MINUTES AFTER PRESCRIPTION EYE DROP Potassium Chloride (Potassium Chloride) 20 Meq Tab.er.prt 20 MEQ PO DAILY, TAB Prednisolone Acetate (Prednisolone Acetate) 5 Ml Drops.susp 1 DROP OS QID, EA Prednisone (Prednisone) 20 Mg Tab 20 MG PO DAILY, TAB Pseudoephedrine HCl (Sudogest) 60 Mg Tablet 60 MG PO BID PRN for CONGESTION, TAB Spironolactone (Spironolactone) 25 Mg Tablet 25 MG PO DAILY, TAB Patient Instructions Goal/Follow Up Appt: You will have an appt with your PCP next week We will call on monday and check on your blood sugars and how they were running over the weekend Activity & Diet Discharge Diet: ADA Diet Activity as Tolerated: Yes ANA LUISA BLACK MD May 11, 2018 12:12
[2018-05-11 13:19] VITALS: BP 125/61
== END 2018-05-11 12:11 | disposition home or self-care (01) ==
LOC: EDUNIT# 22:07 → ER 22:08 → 4TH 23:18
PROVIDERS: ADMIT Family Medicine; ATTEND Family Medicine
DX: E11.65 Type 2 diabetes mellitus with hyperglycemia (principal); M33.90 Dermatopolymyositis, unspecified, organ involvement unspecified; N17.9 Acute kidney failure, unspecified; N39.0 Urinary tract infection, site not specified; A59.01 Trichomonal vulvovaginitis; Z79.52 Long term (current) use of systemic steroids; I10 Essential (primary) hypertension; K21.9 Gastro-esophageal reflux disease without esophagitis; F41.9 Anxiety disorder, unspecified
CPT/HCPCS: 36415; 71046; 80048; 80053; 81000; 82962; 83605; 83735; 85025; 86141; 87040; 87088; 96361; 96374; 96375; G0378

== ENCOUNTER 2018-06-15 05:23 | Emergency (ER) | payer MEDICAID ==
[~2018-06-15] VITALS: Ht 157.5 cm; Wt 110.2 kg
[~2018-06-15 05:23] MED LIST changes: +DULO60CA58 PO; +FOLI1TAB24 PO; +FURO20TA4 PO; +GABA600T2 PO; +GLIP5TAB13 PO; +HYDR-3820 PO; +INSU100V5 SQ; +L.AC1CAP6 PO; +LISI1TAB10 PO; +LORA10TA7 PO; +METH2.5T PO; +METR-197 PO; +NITR-65 PO; +OMEP20CA12 PO; +PIOG30TA71 PO; +POLY15DR14 OS; +POTA20TA15 PO; +PRED5DRO17 OS; +PSEU60TA20 PO; +SPIR25TA5 PO
--- NOTE | 2018-06-15 05:27 | NUR ---
pt ambulated to registrations desk without difficulty. pt unable to ambulate into e.d. room 6, requested wheelchair to room.
[2018-06-15] MEDS ORDERED: LOTE5GEL (05:41)
[2018-06-15] MEDS ORDERED: MONT10TA24 (05:41)
[2018-06-15 06:01] LABS: BILIRUBIN,URINE NEGATIVE (NEGATIVE); CLARITY,URINE CLEAR; COLOR,URINE YELLOW; GLUCOSE, URINE (UA) NEGATIVE (NEGATIVE); KETONES,URINE 1+ (NEGATIVE); LEUKOCYTE ESTERASE ,URINE 2+ (NEGATIVE); NITRITE,URINE NEGATIVE (NEGATIVE); PH,URINE 6.5 (5-9); PROTEIN,URINE 1+ (NEGATIVE); UROBILINOGEN,URINE NORMAL (NORMAL)
[2018-06-15 06:09] LABS: BACTERIA,URINE FEW /HPF; RBC,URINE 0-2 /HPF
[2018-06-15] MEDS ORDERED: ONDANSETRON 4 MG/2 ML (SDV) Z0FRAN IVP ONE (06:15)
[2018-06-15] MEDS ORDERED: NS IV 1000 ML 1,000 ML IV SCH ×2 (06:15→07:00)
--- NOTE | 2018-06-15 06:26 | ED Abdominal Pain ---
General Chief Complaint: Abdominal/GI Problems Stated Complaint: POSS KIDNEY INFECTION,DIARRHEA,VOMITING Nursing Triage Note: pt reports uti, states nausea/vomitting/diarrhea started approx. 2100 06/14/18. Sepsis Screen: No Definite Risk Source of Information: Patient Exam Limitations: No Limitations History of Present Illness Date Seen by Provider: Jun 15, 2018 Time Seen by Provider: 06:18 Initial Comments This 52 year old black female presents with concerns that she has a urinary tract infection. Her symptoms of nausea vomiting and diarrhea recur. She'll 8 her similar episodes in the past. The patient is an insulin-dependent diabetic. The patient's most recent blood sugar was 238 this morning when she took her a.m. medications. The patient denies associated fever, chills, flank pain, hematemesis or melena, productive cough, associated headache or stiff neck. The patient is under the care of [facility]. Allergies and Home Medications Allergies Coded Allergies: latex (Verified Allergy, Unknown, 02/03/18) sertraline (Verified Allergy, Unknown, 02/03/18) aspirin (Unverified Adverse Reaction, Severe, 11/12/10) Home Medications Duloxetine HCl 60 Mg Capsule.dr, 60 MG PO 0700,1900, (Reported) Folic Acid 1 Mg Tablet, 1 MG PO MoTuWeThFrSa, (Reported) DOES NOT TAKE ON SUNDAYS WHEN TAKING METHOTREXATE Furosemide 20 Mg Tablet, 20 MG PO DAILY, (Reported) Gabapentin 600 Mg Tablet, 600 MG PO TID, (Reported) Glipizide 5 Mg Tablet, 5 MG PO 0700,1900, (Reported) Insulin Determir 1,000 Units/10 Ml Soln, 15 UNIT SQ HS Prescribed by: ANA LUISA BLACK on 05/11/18 1209 Methotrexate Sodium 2.5 Mg Tablet, 15 MG PO Sims, (Reported) TAKES 6 (2.5MG) TABLETS Omeprazole 20 Mg Capsule.dr, 20 MG PO DAILY, (Reported) Pioglitazone HCl 30 Mg Tablet, 30 MG PO DAILY, (Reported) Potassium Chloride 20 Meq Tab.er.prt, 20 MEQ PO DAILY, (Reported) Prednisolone Acetate 5 Ml Drops.susp, 1 DROP OS QID, (Reported) Prednisone 20 Mg Tab, 20 MG PO DAILY, (Reported) Pseudoephedrine HCl 60 Mg Tablet, 60 MG PO BID PRN for CONGESTION, (Reported) Spironolactone 25 Mg Tablet, 25 MG PO DAILY, (Reported) Patient Home Medication List Home Medication List Reviewed: Yes Review of Systems Review of Systems Constitutional: No chills, No fever EENTM: No Blurred Vision, No Throat Pain Respiratory: Denies Cough, Denies Shortness of Air Cardiovascular: Denies Chest Pain, Denies Palpitations Gastrointestinal: Denies Abdominal Pain; Diarrhea, Nausea, Vomiting Genitourinary: Denies Burning, Denies Frequency Musculoskeletal: back pain Skin: No rash Psychiatric/Neurological: No Symptoms Reported Endocrine: No Symptoms Reported Hematologic/Lymphatic: No Symptoms Reported Past Kptrijz-Gqjagc-Hcvhsr Hx Past Med/Social Hx: Reviewed Nursing Past Med/Soc Hx Patient Social History Alcohol Use: Denies Use Recreational Drug Use: No Smoking Status: Never a Smoker 2nd Hand Smoke Exposure: No Recent Foreign Travel: No Contact w/Someone Who Travel: No Recent Infectious Disease Expo: No Recent Hopitalizations: No Immunizations Up To Date Tetanus Booster (TDap): Unknown Seasonal Allergies Seasonal Allergies: No Past Medical History Surgeries: Yes Section, Tubal Ligation Respiratory: Yes Asthma Cardiac: Yes (mitral valve prolapse, ) Hypertension Neurological: Yes Neuropathy 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 Disorders: No Genitourinary: Yes Renal Failure, UTI-Chronic Gastrointestinal: Yes Gastroesophageal Reflux Musculoskeletal: Yes Arthritis Endocrine: Yes Diabetes, Insulin dep HEENT: Yes Cancer: No Psychosocial: Yes Anxiety, Bipolar, Depression Integumentary: No Blood Disorders: No Family Medical History No Pertinent Family Hx Physical Exam Vital Signs Vital Signs - First Documented 06/15/18 05:27 Temp 96.9 Pulse 97 Resp 18 B/P (MAP) 102/58 (73) Pulse Ox 99 O2 Delivery Room Air Capillary Refill : Less Than 3 Seconds Height/Weight/BMI Height: 5'2.00" Weight: 243lbs. 0.0oz. 110.896244hg; 45.7 BMI Method:Stated General Appearance: WD/WN, mild distress HEENT: normal ENT inspection Neck: full range of motion, supple Respiratory: lungs clear Cardiovascular: regular rate, rhythm Gastrointestinal: non tender, abnormal bowel sounds (hypoactive bowel sounds) Extremities: normal range of motion, non-tender Back: normal inspection, CVA tenderness (R), CVA tenderness (L) Neurologic/Psychiatric: no motor/sensory deficits, alert, normal mood/affect Skin: normal color, warm/dry Progress/Results/Core Measures Results/Orders Lab Results Laboratory Tests Test 06/15/18 05:45 06/15/18 06:20 Range/Units Urine Color YELLOW Urine Clarity CLEAR Urine pH 6.5 5-9 Urine Specific [place] 1.010 L 1.016-1.022 Urine Protein 1+ H NEGATIVE Urine Glucose (UA) NEGATIVE NEGATIVE Urine Ketones 1+ H NEGATIVE Urine Nitrite NEGATIVE NEGATIVE Urine Bilirubin NEGATIVE NEGATIVE Urine Urobilinogen NORMAL NORMAL MG/DL Urine Leukocyte Esterase 2+ H NEGATIVE Urine RBC (Auto) 2+ H NEGATIVE Urine RBC 0-2 /HPF Urine WBC 2-5 /HPF Urine Squamous Epithelial Cells 2-5 /HPF Urine Crystals NONE /LPF Urine Bacteria FEW H /HPF Urine Casts NONE /LPF Urine Mucus MODERATE H /LPF Urine Culture Indicated NO White Blood Count 9.3 4.3-11.0 10^3/uL Red Blood Count 5.03 4.35-5.85 10^6/uL Hemoglobin 13.9 11.5-16.0 G/DL Hematocrit 42 35-52 % Mean Corpuscular Volume 84 80-99 FL Mean Corpuscular Hemoglobin 28 25-34 PG Mean Corpuscular Hemoglobin Concent 33 32-36 G/DL Red Cell Distribution Width 15.2 H 10.0-14.5 % Platelet Count 216 130-400 10^3/uL Mean Platelet Volume 9.4 7.4-10.4 FL Neutrophils (%) (Auto) 89 H 42-75 % Lymphocytes (%) (Auto) 6 L 12-44 % Monocytes (%) (Auto) 5 0-12 % Eosinophils (%) (Auto) 0 0-10 % Basophils (%) (Auto) 0 0-10 % Neutrophils # (Auto) 8.2 H 1.8-7.8 X 10^3 Lymphocytes # (Auto) 0.6 L 1.0-4.0 X 10^3 Monocytes # (Auto) 0.5 0.0-1.0 X 10^3 Eosinophils # (Auto) 0.0 0.0-0.3 10^3/uL Basophils # (Auto) 0.0 0.0-0.1 10^3/uL Neutrophils % (Manual) 89 % Lymphocytes % (Manual) 7 % Monocytes % (Manual) 4 % Sodium Level 136 135-145 MMOL/L Potassium Level 3.8 3.6-5.0 MMOL/L Chloride Level 95 L 98-107 MMOL/L Carbon Dioxide Level 27 21-32 MMOL/L Anion Gap 14 5-14 MMOL/L Blood Urea Nitrogen 21 H 7-18 MG/DL Creatinine 1.04 0.60-1.30 MG/DL Estimat Glomerular Filtration Rate > 60 BUN/Creatinine Ratio 20 Glucose Level 198 H 70-105 MG/DL Calcium Level 9.3 8.5-10.1 MG/DL Corrected Calcium 9.5 8.5-10.1 MG/DL Total Bilirubin 0.5 0.1-1.0 MG/DL Aspartate Amino Transf (AST/SGOT) 17 5-34 U/L Alanine Aminotransferase (ALT/SGPT) 33 0-55 U/L Alkaline Phosphatase 90 40-136 U/L Total Protein 7.1 6.4-8.2 GM/DL Albumin 3.8 3.2-4.5 GM/DL Lipase 87 H 8-78 U/L My Orders Orders - CYDNEY KURTZ MD Ua Culture If Indicated (06/15/18 05:51) Ondansetron Injection (Zofran Injectio (06/15/18 06:15) Ns Iv 1000 Ml (Sodium Chloride 0.9%) (06/15/18 06:15) Cbc With Automated Diff (06/15/18 06:13) Comprehensive Metabolic Panel (06/15/18 06:13) Lipase (06/15/18 06:13) Manual Differential (06/15/18 06:20) Urine Culture (06/15/18 06:47) Ceftriaxone For Iv Use (Rocephin For I (06/15/18 07:00) Ns Iv 1000 Ml (Sodium Chloride 0.9%) (06/15/18 07:00) Promethazine Injection (Phenergan Injec (06/15/18 08:45) Medications Given in ED Current Medications Medications Dose Ordered Sig/Edel Route Start Time Stop Time Status Last Admin Dose Admin Ceftriaxone Sodium 1000 mg/ Sodium Chloride 50 ml @ 100 mls/hr ONCE ONCE IV 06/15/18 07:00 06/15/18 07:29 DC 06/15/18 06:59 100 MLS/HR Ondansetron HCl 4 mg ONCE ONCE IVP 06/15/18 06:15 06/15/18 06:16 DC 06/15/18 06:22 4 MG Promethazine HCl 25 mg ONCE ONCE IVP 06/15/18 08:45 06/15/18 08:46 DC 06/15/18 08:46 25 MG Vital Signs/I&O 06/15/18 05:27 Temp 96.9 Pulse 97 Resp 18 B/P (MAP) 102/58 (73) Pulse Ox 99 O2 Delivery Room Air Blood Pressure Mean: 73 Progress Progress Note : Time: 06:54 Progress Note The patient's nausea and vomiting were improved with 4 mg of Zofran and subsequently 25 mg of Phenergan IV. The patient's urinalysis was equivocal for urinary tract infection: Positive for leukocytes and negative for nitrates. I requested a culture of the urine. Patient's glucose was less than 200. Her lipase was minimally elevated at 87. Although this is certainly consistent with a viral gastroenteritis given the patient's multiple similar presentations in the past secondary to urinary tract infection the patient will be covered with antibiotics (Rocephin 1 gram IV in the ED and Cipro at home) until she has close follow-up with [facility] on Monday. I'll treat patient's nausea symptomatically with Zofran at home and clear liquids. I invited the patient to return to the emergency department should any further problems or questions. Departure Impression Primary Impression: Nausea and vomiting Qualified Codes: R11.2 - Nausea with vomiting, unspecified Additional Impression: Urinary tract infection Qualified Codes: N30.00 - Acute cystitis without hematuria Disposition: HOME, SELF-CARE Condition: Improved Departure-Patient Inst. Decision time for Depature: 09:52 Referrals: [facility] (PCP) Primary Care Physician MACY TAMAYO (Family) Primary Care Physician Patient Instructions: Urinary Tract Infection, Adult (DC) Add. Discharge Instructions: Cipro and Zofran as prescribed. Clear liquids for the next 24 hours. Close follow-up with the [facility] on Monday. Return if any problems or questions. All discharge instructions reviewed with patient and/or family. Voiced understanding. CYDNEY KURTZ MD Jun 15, 2018 06:26
[2018-06-15 06:30] LABS: BASOPHILS % (AUTO) 0 % (0-10); EOSINOPHILS % (AUTO) 0 % (0-10); HEMATOCRIT 42 % (35-52); HEMOGLOBIN 13.9 G/DL (11.5-16.0); LYMPHOCYTES # (AUTO) 0.6 X 10^3 (1.0-4.0); LYMPHOCYTES % (AUTO) 6 % (12-44); MEAN CORPUSCULAR HEMOGLOBIN 28 PG (25-34); MEAN CORPUSCULAR HGB CONC 33 G/DL (32-36); MEAN CORPUSCULAR VOLUME 84 FL (80-99); MEAN PLATELET VOLUME 9.4 FL (7.4-10.4); MONOCYTES # (AUTO) 0.5 X 10^3 (0.0-1.0); MONOCYTES % (AUTO) 5 % (0-12); NEUTROPHILS # (AUTO) 8.2 X 10^3 (1.8-7.8); NEUTROPHILS % (AUTO) 89 % (42-75); PLATELET COUNT 216 10^3/uL (130-400); RED BLOOD COUNT 5.03 10^6/uL (4.35-5.85); RED CELL DISTRIBUTION WIDTH 15.2 % (10.0-14.5); WHITE BLOOD COUNT 9.3 10^3/uL (4.3-11.0)
[2018-06-15 06:52] LABS: ALANINE AMINOTRANSFERASE 33 U/L (0-55); ALBUMIN 3.8 GM/DL (3.2-4.5); ALKALINE PHOSPHATASE 90 U/L (40-136); BILIRUBIN,TOTAL 0.5 MG/DL (0.1-1.0); BUN/CREATININE RATIO 20; CALCIUM 9.3 MG/DL (8.5-10.1); CARBON DIOXIDE 27 MMOL/L (21-32); CHLORIDE 95 MMOL/L (98-107); CREATININE SERUM 1.04 MG/DL (0.60-1.30); GFR ESTIMATED > 60; GLUCOSE 198 MG/DL (70-105); LIPASE 87 U/L (8-78); POTASSIUM 3.8 MMOL/L (3.6-5.0); SODIUM 136 MMOL/L (135-145); TOTAL PROTEIN 7.1 GM/DL (6.4-8.2)
[2018-06-15] MEDS ORDERED: cefTRIAXone FOR IV USE 1,000 MG in NS (IVPB) 50 ML IV ONE (07:00)
[2018-06-15 07:16] LABS: LYMPHOCYTES % (MANUAL) 7 %; MONOCYTES % (MANUAL) 4 %; NEUTROPHILS % (MANUAL) 89 %
[2018-06-15] MEDS ORDERED: PROMETHAZINE INJ 25 MG/ML (PHENERGAN) AMP IVP ONE (08:45)
[2018-06-15 10:04] VITALS: BP 102/58
== END 2018-06-15 10:06 | disposition home or self-care (01) ==
LOC: EDUNIT# 05:23 → ER 05:25
DX: N39.0 Urinary tract infection, site not specified (principal); E11.40 Type 2 diabetes mellitus with diabetic neuropathy, unspecified; J45.909 Unspecified asthma, uncomplicated; I10 Essential (primary) hypertension; K21.9 Gastro-esophageal reflux disease without esophagitis; F41.9 Anxiety disorder, unspecified; F31.9 Bipolar disorder, unspecified; Z87.440 Personal history of urinary (tract) infections; Z98.890 Other specified postprocedural states; Z98.51 Tubal ligation status; Z91.040 Latex allergy status; Z88.6 Allergy status to analgesic agent; Z88.8 Allergy status to other drugs, medicaments and biological substances; Z79.4 Long term (current) use of insulin; Z79.52 Long term (current) use of systemic steroids
CPT/HCPCS: 36415; 80053; 81000; 83690; 85007; 85027; 87077; 87088; 87186

== ENCOUNTER → 2018-08-10 | Outpatient (CLI) | payer MEDICAID ==
[~2018-08-10] MED LIST changes: -GABA600T2 PO; +GBPN600T PO; +LOTE5GEL; +METR-145 PO; -METR-197 PO; +MONT10TA24
--- NOTE | 2018-08-10 17:03 | Diagnostic Imaging Report ---
EXAMINATION: Left hip at 1:02 p.m. INDICATION: Left hip pain. AP and lateral views were obtained. There are no prior studies available for comparison. FINDINGS: There is no fracture, dislocation, or acute bony abnormality evident. There is moderate degenerative disease of the hip joint. In the soft tissues anterior and lateral to the proximal femur, there is a small 1.7 cm group of dystrophic calcifications. These are of uncertain etiology. This could be a sequela of prior trauma. IMPRESSION: 1. There is no evidence for an acute bony abnormality. 2. If clinical concern regarding an underlying abnormality persists, then MRI would be recommended for further study. 3. The small soft tissue calcifications are nonspecific in appearance. Dictated by: Dictated on workstation # [id number]
== END ==
LOC: RAD 12:46
PROVIDERS: ATTEND Internal Medicine Rheumatology
DX: M16.12 Unilateral primary osteoarthritis, left hip (principal); M79.89 Other specified soft tissue disorders
CPT/HCPCS: 73502

== ENCOUNTER → 2018-10-29 | Outpatient (CLI) | payer MEDICAID, OTHER ==
[2018-10-29 12:32] LABS: BASOPHILS % (AUTO) 0 % (0-10); EOSINOPHILS % (AUTO) 0 % (0-10); HEMATOCRIT 37 % (35-52); HEMOGLOBIN 11.9 G/DL (11.5-16.0); LYMPHOCYTES # (AUTO) 1.1 X 10^3 (1.0-4.0); LYMPHOCYTES % (AUTO) 14 % (12-44); MEAN CORPUSCULAR HEMOGLOBIN 27 PG (25-34); MEAN CORPUSCULAR HGB CONC 32 G/DL (32-36); MEAN CORPUSCULAR VOLUME 83 FL (80-99); MONOCYTES # (AUTO) 0.4 X 10^3 (0.0-1.0); MONOCYTES % (AUTO) 5 % (0-12); NEUTROPHILS # (AUTO) 6.5 X 10^3 (1.8-7.8); NEUTROPHILS % (AUTO) 80 % (42-75); PLATELET COUNT 206 10^3/uL (130-400); RED CELL DISTRIBUTION WIDTH 16.9 % (10.0-14.5); WHITE BLOOD COUNT 8.1 10^3/uL (4.3-11.0)
[2018-10-29 12:50] LABS: BILIRUBIN,DIRECT 0.1 MG/DL (0.0-0.3); BILIRUBIN,INDIRECT 0.1 MG/DL; BILIRUBIN,TOTAL 0.2 MG/DL (0.1-1.0); CREATININE SERUM 0.91 MG/DL (0.60-1.30); TOTAL PROTEIN 7.2 GM/DL (6.4-8.2)
[2018-10-29 13:28] LABS: ERYTHROCYTE SEDIMENTATION RATE 44 MM/HR (0-30)
== END ==
LOC: LAB 11:57
PROVIDERS: ATTEND Internal Medicine Rheumatology
DX: M33.90 Dermatopolymyositis, unspecified, organ involvement unspecified (principal); Z79.899 Other long term (current) drug therapy
CPT/HCPCS: 36415; 80076; 82085; 82550; 82565; 85025; 85652; 86141

== ENCOUNTER → 2018-11-22 | Outpatient (RCR) | payer MEDICAID | END | disposition home or self-care (01) | PROVIDERS: ATTEND Internal Medicine Rheumatology | DX: M16.12 Unilateral primary osteoarthritis, left hip (principal) ==

== ENCOUNTER → 2018-12-24 | Outpatient (CLI) | payer MEDICAID ==
--- NOTE | 2018-12-24 12:34 | Diagnostic Imaging Report ---
INDICATION: Routine screening. COMPARISON: Comparison is made with prior mammograms from 06/29/2017 and 04/29/2014. TECHNIQUE: 2-D and 3-D bilateral screening mammography was performed. The current study was also evaluated with a Computer Aided Detection (CAD) system. 3-D tomosynthesis was also performed and reviewed. FINDINGS: Scattered fibroglandular densities are identified bilaterally. Benign calcifications are noted bilaterally. No dominant mass or malignant-appearing microcalcifications are seen. Axillae are unremarkable. IMPRESSION: No mammographic features suspicious for malignancy are identified. ACR BI-RADS Category 2: Benign findings. Result letter will be mailed to the patient. Note: At least 10% of breast cancer is not imaged by mammography. Dictated by: Dictated on workstation # [id number]
== END ==
LOC: RAD 10:48
PROVIDERS: ATTEND Nurse Practitioner Family
DX: Z12.31 Encounter for screening mammogram for malignant neoplasm of breast (principal)
CPT/HCPCS: 77067

== ENCOUNTER 2019-02-22 09:43 | Outpatient (RCR) | payer MEDICAID ==
[~2019-02-22 09:43] MED LIST changes: -DULO60CA58 PO; +DULO60CA59 PO; -OMEP20CA12 PO; +OMEP20CA13 PO; -TIZA4TAB3; +TIZA4TAB4
== END 2019-02-25 | disposition home or self-care (01) ==
PROVIDERS: ATTEND Internal Medicine Rheumatology
DX: M16.12 Unilateral primary osteoarthritis, left hip (principal); M62.838 Other muscle spasm

== ENCOUNTER 2019-02-28 09:07 | Outpatient (RCR) | payer MEDICAID | END 2019-02-28 11:50 | disposition home or self-care (01) | PROVIDERS: ATTEND Internal Medicine Rheumatology | DX: M16.12 Unilateral primary osteoarthritis, left hip (principal); M62.838 Other muscle spasm ==

== ENCOUNTER → 2019-04-29 | Outpatient (CLI) | payer MEDICAID ==
[2019-04-29 10:39] LABS: BASOPHILS % (AUTO) 0 % (0-10); EOSINOPHILS # (AUTO) 0.1 10^3/uL (0.0-0.3); EOSINOPHILS % (AUTO) 2 % (0-10); HEMATOCRIT 36 % (35-52); HEMOGLOBIN 11.7 G/DL (11.5-16.0); LYMPHOCYTES # (AUTO) 1.4 X 10^3 (1.0-4.0); LYMPHOCYTES % (AUTO) 20 % (12-44); MEAN CORPUSCULAR HEMOGLOBIN 28 PG (25-34); MEAN CORPUSCULAR HGB CONC 33 G/DL (32-36); MEAN CORPUSCULAR VOLUME 84 FL (80-99); MEAN PLATELET VOLUME 8.6 FL (7.4-10.4); MONOCYTES # (AUTO) 0.4 X 10^3 (0.0-1.0); MONOCYTES % (AUTO) 6 % (0-12); NEUTROPHILS % (AUTO) 72 % (42-75); PLATELET COUNT 193 10^3/uL (130-400); RED CELL DISTRIBUTION WIDTH 16.4 % (10.0-14.5)
[2019-04-29 11:00] LABS: ERYTHROCYTE SEDIMENTATION RATE 31 MM/HR (0-30)
[2019-04-29 11:05] LABS: ALBUMIN 4.1 GM/DL (3.2-4.5); BILIRUBIN,TOTAL 0.3 MG/DL (0.1-1.0); CALCIUM 9.9 MG/DL (8.5-10.1); CREATININE SERUM 1.16 MG/DL (0.60-1.30); POTASSIUM 4.1 MMOL/L (3.6-5.0); TOTAL PROTEIN 7.3 GM/DL (6.4-8.2)
== END ==
LOC: LAB 10:24
PROVIDERS: ATTEND Internal Medicine Rheumatology
DX: M33.90 Dermatopolymyositis, unspecified, organ involvement unspecified (principal); Z79.899 Other long term (current) drug therapy
CPT/HCPCS: 36415; 80053; 82085; 82550; 85025; 85652; 86141

== ENCOUNTER 2019-07-09 14:00 | Inpatient (IN) | payer MEDICAID ==
[~2019-07-09] VITALS: Ht 157.5 cm; Wt 112.5 kg
[~2019-07-09 14:00] MED LIST changes: -LISI1TAB10 PO; +LISI1TAB26 PO; +OMEP-280 PO; -OMEP20CA13 PO; -PSEU60TA20 PO; +PSEU60TA21 PO
[2019-07-09] MEDS ORDERED: RT-ALBUTEROL/IPRATROPIUM 3 ML (DUONEB) VIAL INH ONE (14:30)
--- NOTE | 2019-07-09 14:30 | ED Chest Pain ---
General Chief Complaint: Chest Pain Stated Complaint: CHEST PAIN Nursing Triage Note: TO ED PER W/C REPORTS WOKE UP THIS AM WITH PAIN IN CENTER OF CHEST THAT HURTS WHEN SHE MOVES AND TAKES A DEEP BREAT.REPORTS COUGH FOR 1 WEEK Nursing Sepsis Screen: No Definite Risk Source: patient Exam Limitations: no limitations History of Present Illness Date Seen by Provider: Jul 09, 2019 Time Seen by Provider: 14:08 Initial Comments Patient presents to ER by private conveyance with chief complaint of chest pain since around 6:00 this morning. She says is worse when she lays down and coughs deep breathes or applies direct pressure to her substernal anterior, mid chest. No history of coronary disease but she has a history of diabetes on insulin as well as hypertension, on lisinopril and hydrochlorothiazide. She denies history of smoking, COPD or asthma. 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 No significant personal or familial history of heart disease. She denies a history of hyperlipidemia. Subjective fevers and chills today. She says several people in her family have influenza however she has tried to avoid them but she has been going to the [facility]. Allergies and Home Medications Allergies Coded Allergies: latex (Verified Allergy, Unknown, 02/03/18) sertraline (Verified Allergy, Unknown, 02/03/18) aspirin (Unverified Adverse Reaction, Severe, 11/12/10) Home Medications Duloxetine HCl 60 Mg Capsule.dr, 60 MG PO 0700,1900, (Reported) Folic Acid 1 Mg Tablet, 1 MG PO [id number], (Reported) DOES NOT TAKE ON SUNDAYS WHEN TAKING METHOTREXATE Furosemide 20 Mg Tablet, 20 MG PO DAILY, (Reported) Gabapentin 600 Mg Tablet, 600 MG PO TID, (Reported) Glipizide 5 Mg Tablet, 5 MG PO 0700,1900, (Reported) Insulin Determir 1,000 Units/10 Ml Soln, 15 UNIT SQ HS Prescribed by: ANA LUISA BLACK on 05/11/18 1209 Methotrexate Sodium 2.5 Mg Tablet, 15 MG PO Sims, (Reported) TAKES 6 (2.5MG) TABLETS Omeprazole 20 Mg Capsule.dr, 20 MG PO DAILY, (Reported) Pioglitazone HCl 30 Mg Tablet, 30 MG PO DAILY, (Reported) Potassium Chloride 20 Meq Tab.er.prt, 20 MEQ PO DAILY, (Reported) Prednisolone Acetate 5 Ml Drops.susp, 1 DROP OS QID, (Reported) Prednisone 20 Mg Tab, 20 MG PO DAILY, (Reported) Pseudoephedrine HCl 60 Mg Tablet, 60 MG PO BID PRN for CONGESTION, (Reported) Spironolactone 25 Mg Tablet, 25 MG PO DAILY, (Reported) Patient Home Medication List Home Medication List Reviewed: Yes Review of Systems Review of Systems Constitutional: chills, diaphoresis, fever (subjective), malaise EENTM: No Blurred Vision, No Double Vision Respiratory: Cough; Denies Shortness of Air; Wheezing Cardiovascular: See HPI, Chest Pain; Denies Edema, Denies Irregular Heart Rate, Denies Lightheadedness, Denies Palpitations Gastrointestinal: Denies Abdominal Pain, Denies Constipated, Denies Diarrhea, Denies Nausea Genitourinary: Denies Burning, Denies Discharge Musculoskeletal: No back pain, No joint pain Skin: No pruritus, No rash Psychiatric/Neurological: Denies Headache, Denies Numbness, Denies Paresthesia All Other Systems Reviewed Negative Unless Noted: Yes Past Ezibjhv-Lemtvs-Boxxfp Hx Patient Social History Alcohol Use: Denies Use Recreational Drug Use: Yes Smoking Status: Never a Smoker 2nd Hand Smoke Exposure: No Recent Foreign Travel: No Contact w/Someone Who Travel: No Recent Infectious Disease Expo: No Recent Hopitalizations: No Immunizations Up To Date Tetanus Booster (TDap): Unknown Seasonal Allergies Seasonal Allergies: No Past Medical History Surgeries: Yes Section, Tubal Ligation Respiratory: Yes Asthma Cardiac: Yes (mitral valve prolapse, ) Hypertension Neurological: Yes Neuropathy 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 Disorders: No Genitourinary: Yes Renal Failure, UTI-Chronic Gastrointestinal: Yes Gastroesophageal Reflux Musculoskeletal: Yes Arthritis Endocrine: Yes Diabetes, Insulin dep HEENT: Yes Cancer: No Psychosocial: Yes Anxiety, Bipolar, Depression Integumentary: No Blood Disorders: No Family Medical History No Pertinent Family Hx Physical Exam Vital Signs Vital Signs - First Documented 07/09/19 14:00 Temp 37.3 Pulse 102 Resp 18 B/P (MAP) 110/72 (85) Pulse Ox 98 O2 Delivery Room Air Capillary Refill : Less Than 3 Seconds Height, Weight, BMI Height: 5'2.00" Weight: 243lbs. 0.0oz. 110.224286tw; 44.00 BMI Method:Stated General Appearance: Mild Distress, Obese HEENT: PERRL/EOMI, TMs Normal, Pharynx Normal, Moist Mucous Membranes Neck: Full Range of Motion, Normal Inspection Respiratory: No Chest Non Tender (chest discomfort is reproducible to direct palpation); No Accessory Muscle Use, No Respiratory Distress, Decreased Breath Sounds, Wheezing (faint, bilateral) Cardiovascular: Regular Rate, Rhythm, No Edema, Normal Peripheral Pulses Gastrointestinal: Normal Bowel Sounds, Non Tender, Soft Extremity: Normal Capillary Refill, Normal Inspection, No Pedal Edema Neurologic/Psychiatric: Alert, Oriented x3 Skin: Normal Color, Warm/Dry Progress/Results/Core Measures Results/Orders Lab Results Laboratory Tests Test 07/09/19 14:08 Range/Units White Blood Count 9.0 4.3-11.0 10^3/uL Red Blood Count 4.23 L 4.35-5.85 10^6/uL Hemoglobin 11.4 L 11.5-16.0 G/DL Hematocrit 35 35-52 % Mean Corpuscular Volume 84 80-99 FL Mean Corpuscular Hemoglobin 27 25-34 PG Mean Corpuscular Hemoglobin Concent 32 32-36 G/DL Red Cell Distribution Width 16.2 H 10.0-14.5 % Platelet Count 227 130-400 10^3/uL Mean Platelet Volume 9.7 7.4-10.4 FL Neutrophils (%) (Auto) 82 H 42-75 % Lymphocytes (%) (Auto) 14 12-44 % Monocytes (%) (Auto) 3 0-12 % Eosinophils (%) (Auto) 1 0-10 % Basophils (%) (Auto) 0 0-10 % Neutrophils # (Auto) 7.4 1.8-7.8 X 10^3 Lymphocytes # (Auto) 1.2 1.0-4.0 X 10^3 Monocytes # (Auto) 0.2 0.0-1.0 X 10^3 Eosinophils # (Auto) 0.1 0.0-0.3 10^3/uL Basophils # (Auto) 0.0 0.0-0.1 10^3/uL Prothrombin Time 14.5 12.2-14.7 SEC INR Comment 1.1 0.8-1.4 Activated Partial Thromboplast Time 26 24-35 SEC Sodium Level 133 L 135-145 MMOL/L Potassium Level 4.1 3.6-5.0 MMOL/L Chloride Level 101 98-107 MMOL/L Carbon Dioxide Level 23 21-32 MMOL/L Anion Gap 9 5-14 MMOL/L Blood Urea Nitrogen 15 7-18 MG/DL Creatinine 0.94 0.60-1.30 MG/DL Estimat Glomerular Filtration Rate > 60 BUN/Creatinine Ratio 16 Glucose Level 93 70-105 MG/DL Calcium Level 9.4 8.5-10.1 MG/DL Corrected Calcium 9.6 8.5-10.1 MG/DL Magnesium Level 1.6 1.6-2.4 MG/DL Total Bilirubin 0.3 0.1-1.0 MG/DL Aspartate Amino Transf (AST/SGOT) 16 5-34 U/L Alanine Aminotransferase (ALT/SGPT) 18 0-55 U/L Alkaline Phosphatase 87 40-136 U/L Myoglobin 38.6 10.0-92.0 NG/ML Troponin I < 0.028 <0.028 NG/ML B-Type Natriuretic Peptide 29.8 <100.0 PG/ML Total Protein 7.2 6.4-8.2 GM/DL Albumin 3.8 3.2-4.5 GM/DL Micro Results Microbiology 07/09/19 Influenza Types A,B Antigen (LI) - Final, Complete My Orders Orders - PATRICIO ONEIL Ekg Tracing (07/09/19 14:04) Continuous Ekg Monitoring (07/09/19 14:04) Cbc With Automated Diff (07/09/19 14:22) Magnesium (07/09/19 14:22) Chest 1 View, Ap/Pa Only (07/09/19 14:22) Comprehensive Metabolic Panel (07/09/19 14:22) Myoglobin Serum (07/09/19 14:22) Protime With Inr (07/09/19 14:22) Partial Thromboplastin Time (07/09/19 14:22) O2 (07/09/19 14:22) Lipid Panel (07/10/19 06:00) Ed Iv/Invasive Line Start (07/09/19 14:22) BNP (07/09/19 14:22) Troponin I (07/09/19 14:22) Influenza A And B Antigens (07/09/19 14:22) Blood Culture (07/09/19 14:22) Albuterol/Ipra Inhalation Soln (Duoneb I (07/09/19 14:30) Svn Small Volume Nebulizer (07/09/19 14:22) Azithromycin Tablet (Zithromax Tablet) (07/09/19 16:30) Ceftriaxone For Iv Use (Rocephin For I (07/09/19 16:30) Ed Iv/Invasive Line Start (07/09/19 16:25) Ns Iv 500 Ml (Sodium Chloride 0.9%) (07/09/19 16:25) Ns Iv 1000 Ml (Sodium Chloride 0.9%) (07/09/19 16:25) Zosyn 4.5 Gm (One Time Dose) (07/09/19 16:45) Methylprednisolone Sod Succ (Solu-Medrol (07/09/19 16:45) Medications Given in ED Current Medications Medications Dose Ordered Sig/Edel Route Start Time Stop Time Status Last Admin Dose Admin Albuterol/ Ipratropium 3 ml ONCE ONCE INH 07/09/19 14:30 07/09/19 14:31 DC 07/09/19 14:44 3 ML Azithromycin 500 mg ONCE ONCE PO 07/09/19 16:30 07/09/19 16:31 DC 07/09/19 16:37 500 MG Vital Signs/I&O 07/09/19 07/09/19 07/09/19 14:00 14:15 14:44 Temp 37.3 Pulse 102 Resp 18 B/P (MAP) 110/72 (85) Pulse Ox 98 100 O2 Delivery Room Air Room Air Room Air Blood Pressure Mean: 85 Progress Progress Note #1: Time: 14:29 Progress Note This seems to be related to a respiratory issue perhaps pneumonia, bronchitis, bronchospasm?. We'll get troponin and EKG. She is allergic to aspirin. To start for treating her pain we will give her a DuoNeb. We'll obtain blood cultures. She has tachycardia but no fever or elevated white count so we'll hold off on lactic acid, fluids and antibiotic selection yet. Progress Note #2: Time: 16:14 Progress Note Patient thinks that the DuoNeb made her pain worse. She has a pneumonia seen on chest x-ray which is consistent with her presentation. She has not had any hypoxia however she is still be tachycardic around 105. We have offered to set her up with IV antibiotics today and send her home for outpatient trial but she says every time this happens she always ends up in the hospital anyways. She do es take methotrexate and has a history of asthma and has tachycardia with no white count but does have a left shift and borderline fever which is very close to sepsis. An observation stay may not be out of the question. Initial ECG Impression Date: Jul 09, 2019 Initial ECG Impression Time: 14:06 Initial ECG Rate: 103 Initial ECG Rhythm: S.Tach Initial ECG Intervals: Normal Initial ECG Impression: Normal Comment Sinus tachycardia without ST elevation or depression. Diagnostic Imaging Diagonstic Imaging: Xray Plain Films/CT/US/NM/MRI: chest (1v) Comments NAME: NATHAN MENDOZA [facility] REC#: [id number] PT STATUS: REG ER : 1965 PHYSICIAN: PATRICIO ONEIL MD ADMIT DATE: 07/09/19/ER Signed Date of Exam:07/09/19 CHEST 1 VIEW, AP/PA ONLY INDICATION: Chest pain. Comparison is made to prior examination 05/09/2018. FINDINGS: There appears to be some minimal right basilar subsegmental atelectasis and/or pneumonitis. Heart size stable. There is no pleural effusion or pneumothorax. Mediastinum is unremarkable. IMPRESSION: Patchy right basilar subsegmental atelectasis and/or pneumonitis Dictated by: Dictated on workstation # [id number] Dict: 07/09/19 1526 Trans: 07/09/19 1553 [facility] [id number] Interpreted by: SANTOS MANDEL MD Electronically signed by: SANTOS MANDEL MD 07/09/19 1553 Reviewed: Reviewed by Me Departure Communication (Admissions) Time/Spoke to Admitting Phy: 16:35 Discussed the case with Dr. Quezada, remediation consultant for [facility] and she agrees to admit the patient to the floor with Zosyn, Solu-Medrol 40 mg IV every 6 hours, albuterol 2.5 mg every 4 hours. Impression Primary Impression: Pneumonia Qualified Codes: J18.1 - Lobar pneumonia, unspecified organism Additional Impressions: Methotrexate, alf, current use Dermatomyositis Disposition: ADMITTED INPATIENT Condition: Stable Admissions Decision to Admit Reason: Admit from ER (General) Decision to Admit/Date: Jul 09, 2019 Time/Decision to Admit Time: 16:29 Departure-Patient Inst. Referrals: STEVEN FU MD (PCP/Family) Primary Care Physician PATRICIO ONEIL Jul 09, 2019 14:30
[2019-07-09 14:36] LABS: BASOPHILS % (AUTO) 0 % (0-10); EOSINOPHILS # (AUTO) 0.1 10^3/uL (0.0-0.3); EOSINOPHILS % (AUTO) 1 % (0-10); HEMATOCRIT 35 % (35-52); HEMOGLOBIN 11.4 G/DL (11.5-16.0); LYMPHOCYTES # (AUTO) 1.2 X 10^3 (1.0-4.0); LYMPHOCYTES % (AUTO) 14 % (12-44); MEAN CORPUSCULAR HEMOGLOBIN 27 PG (25-34); MEAN CORPUSCULAR HGB CONC 32 G/DL (32-36); MEAN CORPUSCULAR VOLUME 84 FL (80-99); MEAN PLATELET VOLUME 9.7 FL (7.4-10.4); MONOCYTES # (AUTO) 0.2 X 10^3 (0.0-1.0); MONOCYTES % (AUTO) 3 % (0-12); NEUTROPHILS # (AUTO) 7.4 X 10^3 (1.8-7.8); NEUTROPHILS % (AUTO) 82 % (42-75); PLATELET COUNT 227 10^3/uL (130-400); RED CELL DISTRIBUTION WIDTH 16.2 % (10.0-14.5)
--- NOTE | 2019-07-09 14:45 | NUR ---
LAB HERE TO DRAW 2ND BLOOD CULTURE
[2019-07-09 14:47] LABS: ALANINE AMINOTRANSFERASE 18 U/L (0-55); ALBUMIN 3.8 GM/DL (3.2-4.5); ALKALINE PHOSPHATASE 87 U/L (40-136); BILIRUBIN,TOTAL 0.3 MG/DL (0.1-1.0); BUN/CREATININE RATIO 16; CALCIUM 9.4 MG/DL (8.5-10.1); CARBON DIOXIDE 23 MMOL/L (21-32); CHLORIDE 101 MMOL/L (98-107); CREATININE SERUM 0.94 MG/DL (0.60-1.30); GFR ESTIMATED > 60; GLUCOSE 93 MG/DL (70-105); MAGNESIUM 1.6 MG/DL (1.6-2.4); POTASSIUM 4.1 MMOL/L (3.6-5.0); SODIUM 133 MMOL/L (135-145); TOTAL PROTEIN 7.2 GM/DL (6.4-8.2)
--- NOTE | 2019-07-09 15:30 | Diagnostic Imaging Report ---
INDICATION: Chest pain. Comparison is made to prior examination 05/09/2018. FINDINGS: There appears to be some minimal right basilar subsegmental atelectasis and/or pneumonitis. Heart size stable. There is no pleural effusion or pneumothorax. Mediastinum is unremarkable. IMPRESSION: Patchy right basilar subsegmental atelectasis and/or pneumonitis Dictated by: Dictated on workstation # [id number]
[2019-07-09 16:15] LABS: INR 1.1 (0.8-1.4); PROTHROMBIN TIME PATIENT 14.5 SEC (12.2-14.7)
[2019-07-09] MEDS ORDERED: NS IV 1000 ML 1,000 ML IV SCH (16:25)
[2019-07-09] MEDS ORDERED: NS IV 500 ML 500 ML IV ONE (16:25)
[2019-07-09] MEDS ORDERED: cefTRIAXone FOR IV USE 1,000 MG in WATER (STERILE) FOR INJECTION 10 ML IV ONE (16:30)
[2019-07-09] MEDS ORDERED: AZITHROMYCIN 250 MG TAB (ZITHROMAX) PO ONE (16:30)
[2019-07-09] MEDS ORDERED: PIPERACILLIN/TAZOBACTAM (BULK) 4.5 GM in NS (IVPB) 100 ML IV ONE (16:45)
[2019-07-09] MEDS ORDERED: methylPREDNISolone 125 MG (Solu-MEDROL) VIAL IVP ONE (16:45)
[2019-07-09] MEDS ORDERED: RT-ALBUTEROL/IPRATROPIUM 3 ML (DUONEB) VIAL INH PRN (17:00)
[2019-07-09 17:03] VITALS: BP 110/72
[2019-07-09 17:20] LABS: ABG BASE EXCESS 0.2 MMOL/L (-2.5-2.5); ABG OXYGEN SATURATION 94 % (94-100); ABG PCO2 39 MMHG (35-45); ABG PH 7.41 (7.37-7.43); ABG PO2 69 MMHG (79-93); ABG TCO2 25.4 MMOL/L (21.0-31.0)
[2019-07-09] MEDS ORDERED: ONDANSETRON 4 MG/2 ML (SDV) Z0FRAN ONE (17:26)
--- NOTE | 2019-07-09 17:28 | NUR ---
C/O OF [facility] AFTER TAKING PO MEDS NOTIFID MEDS ORDERED.
[2019-07-09] MEDS ORDERED: ONDANSETRON 4 MG/2 ML (SDV) Z0FRAN IVP ONE (17:30)
[2019-07-09 17:35] LABS: ALLENS TEST YES-POS; INSPIRED O2 ROOM AIR; PATIENT TEMP 37.4; VENTILATOR NO
--- NOTE | 2019-07-09 18:10 | NUR ---
NATHAN MENDOZA admitted to room 406-1, with an admitting diagnosis of pneumonia, on 07/09/19 from ED via wheelchair, accompanied by staff. NATHAN MENDOZA introduced to surroundings, call light, bed controls, phone, TV, temperature control, lights, meal times, smoking policy, visitor policy, side rail policy, bathrooms and showers. Patient Rights given to patient in the handbook. NATHAN MENDOZA verbalizes understanding that [facility] is not responsible for the loss or damage to any personal effects or valuables that are kept in the patients possession during their hospitalization. The following Patient Care Plans were discussed with the patient: Discharge Planning, pain management, dehydration, and medications. NATHAN MENDOZA verbalizes understanding of Interdisciplinary Patient Education. Patient and/or family were informed about the Rapid Response Team and its purpose.
[2019-07-09] MEDS ORDERED: ACETAMINOPHEN 500 MG TAB (TYLENOL) PO PRN (18:15)
[2019-07-09] MEDS ORDERED: ONDANSETRON 4 MG/2 ML (SDV) Z0FRAN IV PRN (18:15)
[2019-07-09] MEDS ORDERED: ANTACID SUSP 30 ML UDC (MYLANTA) PO PRN (18:15)
[2019-07-09 18:18] VITALS: BP 123/62
[2019-07-09] MEDS ORDERED: CATHETER FLUSH 10 ML SYR IV PRN (18:30)
[2019-07-09] MEDS: NS IV 1000 ML 1,000 ML IV SCH ×2 (18:39→23:49)
[2019-07-09] MEDS: RT-ALBUTEROL/IPRATROPIUM 3 ML (DUONEB) VIAL INH SCH (19:24)
--- NOTE | 2019-07-09 20:20 | History & Physical-Hospitalist ---
History of Present Illness HPI/Chief Complaint CC: RLL PNA in immunosuppressed patient with asthma HPI: This is a 53yoAAF clinic patient of [facility] and Dr Spicer Rheumatology who treats her dermatomyositis who is maintained on immunosuppression with MTX who has a h/o asthma and PNA who presents to the ER with dyspnea and cough and fever and was noted to have RLL PNA. Patient currently is coughing and feels fatigued. I placed her on broad spectrum abx due to immunosuppression. Source: patient, RN/MD Exam Limitations: no limitations Date Seen 07/09/19 Time Seen by a Provider: 18:00 Attending Physician Lubna Quezada Anan B MD Referring Physician Date of Admission Jul 09, 2019 at 16:35 Home Medications & Allergies Home Medications Reviewed patient Home Medication Reconciliation performed by pharmacy medication reconciliations technician inventory specialist and/or nursing. Patients Allergies have been reviewed. Allergies Allergies Coded Allergies latex (Verified Allergy, Unknown, 02/03/18) sertraline (Verified Allergy, Unknown, 02/03/18) aspirin (Unverified Adverse Reaction, Severe, 11/12/10) Past Dknythy-Vpjvid-Oigouy Hx Past Med/Social Hx: Reviewed Nursing Past Med/Soc Hx, Reviewed and Corrections made Patient Social History Marrital Status: single Employed/Student: unemployed Alcohol Use: Denies Use Recreational Drug Use: Yes Smoking Status: Never a Smoker 2nd Hand Smoke Exposure: No Recent Foreign Travel: No Contact w/other who traveled: No Recent Hopitalizations: No Recent Infectious Disease Expo: No Immunizations Up To Date Tetanus Booster (TDap): Unknown Seasonal Allergies Seasonal Allergies: No Past Medical History Surgeries: Section, Tubal Ligation Respiratory: Asthma, Pneumonia Cardiac: Hypertension Neurological: Neuropathy 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: No Genitourinary: Renal Failure, UTI-Chronic Gastrointestinal: Gastroesophageal Reflux Musculoskeletal: Arthritis Dermatomyositis Endocrine: Diabetes, Insulin dep Psychosocial: Anxiety, Bipolar, Depression History of Blood Disorders: No Family History No Pertinent Family Hx Review of Systems Constitutional: see HPI Respiratory: cough, dyspnea on exertion, short of breath, wheezing Physical Exam Physical Exam Vital Signs Vital Signs - First Documented 07/09/19 07/09/19 14:00 17:03 Temp 37.3 Pulse 102 Resp 18 B/P (MAP) 110/72 (85) Pulse Ox 98 O2 Delivery Room Air FiO2 21 Capillary Refill : Less Than 3 Seconds Height, Weight, BMI Height: 5'2.00" Weight: 243lbs. 0.0oz. 110.081870vi; 45.35 BMI Method:Stated General Appearance: No Apparent Distress, WD/WN, Chronically ill Eyes: Right Eye Normal Inspection, Right Eye PERRL HEENT: PERRL/EOMI, Normal ENT Inspection, Pharynx Normal, Moist Mucous Membranes Neck: Full Range of Motion, Normal Inspection, Non Tender Respiratory: Chest Non Tender, No Accessory Muscle Use, No Respiratory Distress, Crackles, Decreased Breath Sounds, Wheezing Cardiovascular: Regular Rate, Rhythm, No Edema, No Gallop, No JVD, No Murmur, Normal Peripheral Pulses Gastrointestinal: Normal Bowel Sounds, No Organomegaly, No Pulsatile Mass, Non Tender, Soft Back: Normal Inspection, No CVA Tenderness, No Vertebral Tenderness Extremity: Normal Capillary Refill, Normal Inspection, Normal Range of Motion, Non Tender, No Calf Tenderness, No Pedal Edema Neurologic/Psychiatric: Alert, Oriented x3, No Motor/Sensory Deficits, Normal 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 Assessment/Plan Admission Diagnosis Assessment: PNA RLL Dermatomyositis Immunosuppression with MTX high risk for resistant organisms Hypoxemia Plan: IV abx IV steroids Anti-tussives Admission Status: Inpatient Order (span 2 midnights) Reason for Inpatient Admission: PNA in Immunosuppression Diagnosis/Problems Diagnosis/Problems (1) Pneumonia Status: Acute Qualifiers: Pneumonia type: due to unspecified organism Laterality: right Lung location: lower lobe of lung Qualified Codes: J18.1 - Lobar pneumonia, unspecified organism (2) Dermatomyositis Status: Chronic (3) Methotrexate, chcf, current use Status: Acute (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
[2019-07-09 20:30] VITALS: BP 119/59
[2019-07-09] MEDS ORDERED: HYDROCODONE/CHLOR 10MG/5 ML (TUSSIONEX SUSP) 5ML UDC PO SCH (20:30)
[2019-07-09] MEDS: GABAPENTIN 600 MG (NEURONTIN) TAB PO SCH (21:10)
[2019-07-09] MEDS: cloNIDine 0.1 MG (CATAPRES) TAB PO SCH (21:10)
[2019-07-09] MEDS: BENZONATATE 100 MG (TESSALON) CAPSULE PO SCH (21:10)
[2019-07-09] MEDS: ENOXAPARIN 40 MG/0.4 ML (LOVENOX) SYR SC SCH (21:11)
[2019-07-09] MEDS: inSUlin ASPART (NovoLOG) 1 UNIT/0.01 ML (CHARGE PER UNIT) SC SCH (21:11)
[2019-07-09] MEDS: HYDROCODONE/CHLOR 10MG/5 ML (TUSSIONEX SUSP) 5ML UDC PO SCH (21:11)
[2019-07-09] MEDS: methylPREDNISolone 40 MG/ML (Solu-MEDROL) VIAL IV SCH (23:44)
[2019-07-09] MEDS: PIPERACILLIN/TAZO 4.5 GM/NS 100 ML IV SCH ×2 (23:44)
[2019-07-10] VITALS: BP 106/57
[2019-07-10] MEDS: RT-ALBUTEROL/IPRATROPIUM 3 ML (DUONEB) VIAL INH SCH ×4 (01:47→18:50)
[2019-07-10 03:57] VITALS: BP 113/60
[2019-07-10 05:18] LABS: BASOPHILS % (AUTO) 0 % (0-10); EOSINOPHILS % (AUTO) 0 % (0-10); HEMATOCRIT 33 % (35-52); HEMOGLOBIN 10.9 G/DL (11.5-16.0); LYMPHOCYTES # (AUTO) 0.5 X 10^3 (1.0-4.0); LYMPHOCYTES % (AUTO) 6 % (12-44); MEAN CORPUSCULAR HEMOGLOBIN 27 PG (25-34); MEAN CORPUSCULAR HGB CONC 33 G/DL (32-36); MEAN CORPUSCULAR VOLUME 83 FL (80-99); MEAN PLATELET VOLUME 9.5 FL (7.4-10.4); MONOCYTES % (AUTO) 0 % (0-12); NEUTROPHILS # (AUTO) 7.6 X 10^3 (1.8-7.8); NEUTROPHILS % (AUTO) 94 % (42-75); PLATELET COUNT 211 10^3/uL (130-400); RED CELL DISTRIBUTION WIDTH 16.2 % (10.0-14.5); WHITE BLOOD COUNT 8.1 10^3/uL (4.3-11.0)
[2019-07-10 05:43] LABS: ALBUMIN 3.4 GM/DL (3.2-4.5); BILIRUBIN,TOTAL 0.5 MG/DL (0.1-1.0); CALCIUM 8.8 MG/DL (8.5-10.1); CREATININE SERUM 1.18 MG/DL (0.60-1.30); POTASSIUM 4.1 MMOL/L (3.6-5.0); TOTAL PROTEIN 6.7 GM/DL (6.4-8.2)
[2019-07-10 05:49] LABS: ANISOCYTOSIS SLIGHT; BAND NEUTROPHILS 2 %; HYPOCHROMASIA SLIGHT; LYMPHOCYTES % (MANUAL) 12 %; MONOCYTES % (MANUAL) 1 %; NEUTROPHILS % (MANUAL) 85 %
[2019-07-10] MEDS: PIPERACILLIN/TAZO 4.5 GM/NS 100 ML IV SCH ×4 (07:01→16:21)
[2019-07-10] MEDS: inSUlin ASPART (NovoLOG) 1 UNIT/0.01 ML (CHARGE PER UNIT) SC SCH ×4 (07:02→21:51)
[2019-07-10] MEDS: glipiZIDE 5 MG (GLUCOTROL) TAB PO SCH ×2 (07:02→18:04)
[2019-07-10] MEDS: methylPREDNISolone 40 MG/ML (Solu-MEDROL) VIAL IV SCH ×4 (07:02→20:42)
[2019-07-10 07:24] VITALS: BP 116/61
[2019-07-10] MEDS: PANTOPRAZOLE 20 MG TABLET (PROTONIX) PO SCH (09:46)
[2019-07-10] MEDS: HYDROCODONE/CHLOR 10MG/5 ML (TUSSIONEX SUSP) 5ML UDC PO SCH ×2 (09:46→20:42)
[2019-07-10] MEDS: FOLIC ACID 1 MG TAB PO SCH (09:46)
[2019-07-10] MEDS: BENZONATATE 100 MG (TESSALON) CAPSULE PO SCH ×3 (09:46→20:43)
[2019-07-10] MEDS: ENOXAPARIN 40 MG/0.4 ML (LOVENOX) SYR SC SCH ×2 (09:46→20:42)
[2019-07-10] MEDS: GABAPENTIN 600 MG (NEURONTIN) TAB PO SCH ×3 (09:46→20:43)
[2019-07-10] MEDS: NS IV 1000 ML 1,000 ML IV SCH (09:47)
--- NOTE | 2019-07-10 10:07 | Diagnostic Imaging Report ---
INDICATION: Pneumonia. Comparison made to prior examination 07/09/2019. FINDINGS: Heart size is unchanged. There is now some minimal left basilar subsegmental atelectasis and/or pneumonitis. There is no pleural effusion or pneumothorax. Mediastinum is unremarkable. IMPRESSION: Minimal left basilar subsegmental atelectasis and/or pneumonitis, otherwise unremarkable. Dictated by: Dictated on workstation # [id number]
--- NOTE | 2019-07-10 10:40 | NUR ---
SPOKE WITH THE PATIENT ABOUT HER MEDICATIONS. SHE HAD HER BOTTLES WITH HER, WE WENT OVER THEM AND SHE VERIFIED HOW SHE TAKES EACH ONE. 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) 2-7-20 GABAPENTIN 600MG TID #90 (NOT PICKED UP YET) 2-7-20 METHOTREXATE 2.5MG 4 TABS BID ON SUNDAYS #32 120 FOLIC ACID 1MG DAILY EXCEPT METHOTREXATE DAY (SUN) #30 06-18-19 FUROSEMIDE 20MG DAILY #30 06-18-19 PIOGLITAZONE 30MG DAILY #30 06-18-19 GLIPIZIDE 5MG BID #60 06-13-19 HYDROCODONE 10-325MG #112 1Q6H PRN (DOES NOT HAVE THIS HERE WITH HER) 06-07-19 OMEPRAZOLE 20MG DAILY #90 06-06-19 LORATADINE 10MG DAILY #90 06-06-19 LISINOPRIL HYDROCHLOROTHIAZIDE 20-25MG DAILY #30 06-06-19 SPIRONOLACTONE 25MG DAILY #90 06-06-19 GABAPENTIN 600MG TID #90 05-14-19 NABUMETONE 500MG BID #60 05-13-19 TRAZODONE 100MG 1-2 HS PRN SLEEP #60 04-12-19 SUDOGEST 60MG 1 Q6H PRN #30 REPOSITORY MEDS: 11-28-18 CLONIDINE 0.1MG HS #270 01-24-19 POTASSIUM 10MEQ 2 DAILY #90 (HAS A 20MEQ DAILY DOSE 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 OTC MED: ADVANCED EYE RELIEF EYE DROPS PRN Addendum: 07/10/19 at 1440 by MAXIM CERNA [facility] ANGELIQUE WITH THE [facility] PROGRAM CALLED ME BACK AT THIS TIME AND STATES THEY LAST GAVE THE PATIENT A 4 MONTH SUPPLY OF BOTH CYMBALTA 60MG BID AND LEVEMIR FLEX PENS 34-53 UNITS HS ON 01-10-19 THROUGH [facility]. THE PATIENT HOWEVER REPORTED SHE ONLY USES 15-20 UNITS OF LEVEMIR AT HS.
[2019-07-10] MEDS ORDERED: LISI1TAB26 PO (10:56)
[2019-07-10] MEDS ORDERED: NABU500T PO (10:56)
[2019-07-10] MEDS ORDERED: POTA10TA36 PO (10:56)
[2019-07-10] MEDS ORDERED: LORA10TA7 PO (10:56)
[2019-07-10] MEDS ORDERED: CLON0.1T PO (10:56)
[2019-07-10] MEDS ORDERED: BREX2TAB PO (10:56)
[2019-07-10] MEDS ORDERED: TRAZ-190 PO (10:56)
[2019-07-10] MEDS ORDERED: GLYC15DR OU (10:56)
[2019-07-10] MEDS ORDERED: RT-ALBUINH IH (10:56)
[2019-07-10] MEDS ORDERED: POTA-51 PO (11:09)
[2019-07-10] MEDS ORDERED: HYDR-3820 PO (11:09)
[2019-07-10 12:15] VITALS: BP 111/56
--- NOTE | 2019-07-10 13:52 | Occupational Therapy Eval ---
OT Evaluation-General/PLF Medical Diagnosis Admission Date Jul 09, 2019 at 16:35 Medical Diagnosis: pneumonia Onset Date: Jul 09, 2019 Therapy Diagnosis Therapy Diagnosis: debility Height/Weight Height (Feet): 5 Height (Inches): 2.00 Weight (Pounds): 243 Weight (Ounces): 0.0 Precautions Precautions/Isolations: Standard Precautions Safety Interventions: None Referral Physician: Damien Medical History Pertinent Medical History: Arthritis, DM, GERD, HTN, Neuropathy, Smoking Additional Medical History Asthma, renal failure, UTI-chronic, dermatomyositis, anxiety, bipolar, depression Current History Pt admitted with pneumonia Social History Current Living Status: Significant Other ADL-Prior Level of Function SCALE: Activities may be completed with or without assistive devices. 9-Ltmdyriltk-ficmiew completes the activity by him/herself with no assistance from a helper. 5-Set-up or Clean-up Assistance-helper sets up or cleans up; patient completes activity. [place] assists only prior to or following the activity. 4-Supervision or Touching Assistance-helper provides verbal cues and/or touching/steadying and/or contact guard assistance as patient completes activity. Assistance may be provided throughout the activity or intermittently. 3-Partial/Moderate Assistance-helper does LESS THAN HALF the effort. [place] lif ts, holds or supports trunk or limbs, but provides less than half the effort. 2-Substantial/Maximal Assistance-helper does MORE THAN HALF the effort. [place] lifts or holds trunk or limbs and provides more than half the effort. 1-Eqaldvfkk-wgbwum does ALL the effort. Patient does none of the effort to complete the activity. Or, the assistance of 2 or more helpers is required for the patient to complete the activity. If activity was not attempted, code reason: 7-Patient Refused. 9-Not Applicable-not attempted and the patient did not perform the activity before the current illness, exacerbation or injury. 10-Not Attempted due to Environmental Limitations-(lack of equipment, weather restraints, etc.). 88-Not Attempted due to Medical Conditions or Safety Concerns. ADL PLOF Comments Pt states she is mostly independent with basic ADLs. States significant other assists her as needed. Pt states her activity depends on the day and she just does what she can. Drive Self: No OT Current Status Subjective Pt sitting in chair, agrees to therapy Mental Status/Objective Patient Orientation: Person, Place Current Glasses/Contacts: Yes Hearing Aids: No Dentures/Partials: Yes Hand Dominance: Right Upper Extremity ROM Decreased shoulder ROM (~90degrees). Pt states this is prior level Upper Extremity Coordination Intact ADL-Treatment ADL-Current Pt sitting in chair. Sit to stand without assist. Gait to restroom without AD, no LOB noted. Pt transferred to toilet and completed toileting hygiene without assist. Pt sat EOB to don underwear. Able to thread bilateral LE into underwear, stood with good balance during pant hike. Pt changed hospital gown without assist. Sit to supine without assist. Pt states she is feeling better and is at baseline for ADLs. Denied needs. Pt resting in bed with needs met and RN present after session. Eating (QC): 6 (per pt report) Upper Body Dressing (QC): 6 (hospital gown only) Lower Body Dressing (QC): 6 Toileting Hygiene (QC): 6 Education OT Patient Education: Rehab process, Safety issues Teaching Recipient: Patient Teaching Methods: Discussion Response to Teaching: Verbalize Understanding OT Education/Plan Problem List/Assessment Assessment: No Skilled OT Needs ID'd Pt admitted with pneumonia. Pt states she has been getting up to restroom wit hout assist. Pt moves slowly, but is safe. Pt demonstrated ability to complete transfer and toileting with modified independence. Donned underwear without assist. Up in room without assist. Pt states she is at baseline for ADLs and states significant other assists her if needed. No further skilled OT intervention indicated at this time. D/c OT. Discharge Recommendations Plan/Recommendations: Discontinue OT Treatment Plan/Plan of Care Treatment,Training & Education: No Plan of Care: OTHER (evaluation only) Treatment Duration: Jul 10, 2019 Frequency: 1 time per week (evaluation only) Estimated Hrs Per Day: Other Time/GCodes Start Time: 13:13 Stop Time: 13:30 Total Time Billed (hr/min): 17 Billed Treatment Time 1 visit, FLAKO(17minutes) SENG MALIN OT Jul 10, 2019 13:52
--- NOTE | 2019-07-10 14:11 | Progress Note - Hospitalist ---
SHORTY FAROOQ, MEDICAL STUDENT 07/10/19 1411: Subjective HPI/CC On Admission CC: RLL PNA in immunosuppressed patient with asthma HPI: This is a 53yoAAF clinic patient of [facility] and Dr Spicer Rheumatology who treats her dermatomyositis who is maintained on immunosuppression with MTX who has a h/o asthma and PNA who presents to the ER with dyspnea and cough and fever and was noted to have RLL PNA. Patient currently is coughing and feels fatigued. I placed her on broad spectrum abx due to immunosuppression. Subjective/Events-last exam Patient had NAEON Currently on broad spectrum abx Objective Exam Vital Signs Vital Signs Date Time Temp Pulse Resp B/P (MAP) Pulse Ox O2 Delivery O2 Flow Rate FiO2 07/10/19 12:15 36.4 59 18 111/56 (74) 100 Room Air 07/09/19 17:03 21 Capillary Refill : Less Than 3 Seconds General Appearance: Mild Distress, Obese HEENT: PERRL/EOMI, Pharynx Normal Neck: Full Range of Motion, Normal Inspection, Non Tender, Supple Respiratory: Chest Non Tender, Crackles, Respiratory Distress Cardiovascular: Regular Rate, Rhythm, No Gallop, No JVD, No Murmur Gastrointestinal: Normal Bowel Sounds, No Organomegaly, No Pulsatile Mass, Non Tender Rectal: Deferred Back: Normal Inspection, No CVA Tenderness, No Vertebral Tenderness Extremity: Normal Capillary Refill, Normal Inspection, Normal Range of Motion, Non Tender, No Calf Tenderness Neurologic/Psychiatric: Alert, Oriented x3, No Motor/Sensory Deficits, Normal Mood/Affect, vocational rehabilitation specialist II-XII Norm as Tested Skin: Normal Color, Warm/Dry Results/Procedures Lab Laboratory Tests 07/09/19 14:08 07/10/19 04:21 Patient resulted labs reviewed. Radiology CXR IMPRESSION: Minimal left basilar subsegmental atelectasis and/or pneumonitis, otherwise unremarkable. Assessment/Plan Assessment and Plan Assess & Plan/Chief Complaint 65 YO F with PMH Dermatomyositis who is taking methotrexate who now presents with respiratory distress and was found to have pneumonia on CXR. Continue broad spectrum abx Continue steroids Clinical Quality Measures DVT/VTE Risk/Contraindication: Risk Factor Score Per Nursin RFS Level Per Nursing on Admit: 3=High LUBNA CHAWLA DO 07/10/191931: Subjective HPI/CC On Admission Date Seen by Provider: Jul 10, 2019 Time Seen by Provider: 09:30 Subjective/Events-last exam Pt had a really good night. Cough syrup is really helping her. IV steroids maintained. Broad-spectrum antibiotics of Zosyn due to immuno-suppressed state. Labs look good. Oxygen is normal. Review of Systems Pulmonary: Dyspnea, Cough Objective Exam General Appearance: No Apparent Distress, WD/WN Respiratory: Chest Non Tender, No Accessory Muscle Use, No Respiratory Distress, Crackles, Wheezing Cardiovascular: Regular Rate, Rhythm, No Edema, No Gallop, No JVD, No Murmur, Normal Peripheral Pulses Neurologic/Psychiatric: Alert, Oriented x3, No Motor/Sensory Deficits, Normal Mood/Affect Assessment/Plan Assessment and Plan Assess & Plan/Chief Complaint Decrease steroids to Q12 hours Increase Levemir Home meds except MTX Diagnosis/Problems Diagnosis/Problems (1) Pneumonia Status: Acute Qualifiers: Qualified Codes: J18.1 - Lobar pneumonia, unspecified organism (2) 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 I reviewed and verified all information documented by the medical student and made modifications to such information, when appropriate. I personally performed the physical exam and medical decision making. Lubna Chawla, Jul 10, 2019,19:32 SHORTY FAROOQ, MEDICAL STUDENT Jul 10, 2019 14:11 LUBNA CHAWLA DO Jul 10, 2019 19:32
[2019-07-10] MEDS ORDERED: INSU100I29 SQ (14:38)
--- NOTE | 2019-07-10 15:45 | Physical Therapy Evaluation ---
PT Evaluation-General Medical Diagnosis Admission Date Jul 09, 2019 at 16:35 Medical Diagnosis: pneumonia Onset Date: Jul 09, 2019 Therapy Diagnosis Therapy Diagnosis: weakness Height/Weight Height (Feet): 5 Height (Inches): 2.00 Weight (Pounds): 243 Weight (Ounces): 0.0 Precautions Precautions/Isolations: Standard Precautions Referral Physician: Damien Reason for Referral: Evaluation/Treatment Medical History Pertinent Medical History: Arthritis, DM, GERD, HTN, Neuropathy, Smoking Current History [facility] of RLL [facility]. Reviewed History: Yes Social History Home: Single Level Current Living Status: Significant Other Prior Prior Level of Function SCALE: Activities may be completed with or without assistive devices. 1-Sbrkfcypfk-obgolkn completes the activity by him/herself with no assistance from a helper. 5-Set-up or Clean-up Assistance-helper sets up or cleans up; patient completes activity. [place] assists only prior to or following the activity. 4-Supervision or Touching Assistance-helper provides verbal cues and/or touching/steadying and/or contact guard assistance as patient completes activity. Assistance may be provided throughout the activity or intermittently. 3-Partial/Moderate Assistance-helper does LESS THAN HALF the effort. [place] lif ts, holds or supports trunk or limbs, but provides less than half the effort. 2-Substantial/Maximal Assistance-helper does MORE THAN HALF the effort. [place] lifts or holds trunk or limbs and provides more than half the effort. 0-Evfopbpnk-fnmmle does ALL the effort. Patient does none of the effort to complete the activity. Or, the assistance of 2 or more helpers is required for the patient to complete the activity. If activity was not attempted, code reason: 7-Patient Refused. 9-Not Applicable-not attempted and the patient did not perform the activity before the current illness, exacerbation or injury. 10-Not Attempted due to Environmental Limitations-(lack of equipment, weather restraints, etc.). 88-Not Attempted due to Medical Conditions or Safety Concerns. Bed Mobility: 6 Transfers (B,C,W/C): 6 Gait: 6 Stairs: 6 Indoor Mobility (Ambulation): Independent Stairs: Independent PT Evaluation-Current Subjective "I've been waiting on you all day!" Agrees to go on a walk. Reports she has been getting up in the room. Pt/Family Goals Return home when able. Objective Patient Orientation: Person, Place, Time, Situation ROM/Strength ROM Lower Extremities WNL Strength Lower Extremities WFL Integumentary/Posture Integumentary intact Bowel Incontinence: No Bladder Incontinence: No Posture normal Neuromuscular (Tone, Coordination, Reflexes) intact and functional Sensory Vision: Functional Hearing: Functional Hand Dominance: Right Transfers Roll Left to Right (QC): 5 Sit to Lying (QC): 5 Lying to Sitting/Side of Bed(Q: 5 Sit to Stand (QC): 5 Gait Does the Patient Walk?: Yes Mode of Locomotion: Walk Anticipated Mode of Locomotion: Walk Walk 10 feet (QC): 5 Walk 50 ft with 2 Turns(QC): 5 Walk 150 ft (QC): 5 Distance: 250 ft Comments/Gait Description safe and steady gait without an AD; wide JIMENEZ but no oseas LOB Balance Sitting Static: Good Sitting Dynamic: Good Standing Static: Good Standing Dynamic: Good Treatment Functional gait Assessment/Needs Pt is supervision with mobility. No LOB noted and no need for AD with ambulation. Rehab Potential: Good PT Jail Goals Jail Goals PT Jail Goals Time Frame: Jul 15, 2019 Roll Left & Right (QC): 6 Sit to Lying (QC): 6 Lying-Sitting on Side/Bed(QC): 6 Sit to Stand (QC): 6 Chair/Xpg-ao-Pputd Xfer(QC): 6 Toilet Transfer (QC): 6 Car Transfer (QC): 6 Walk 150 ft (QC): 6 PT Plan Problem List Problem List: Activity Tolerance, Functional Strength Treatment/Plan Treatment Plan: Continue Plan of Care Treatment Plan: Functional Activity Ghassan, Gait Treatment Duration: Jul 15, 2019 Frequency: 5 times per week Estimated Hrs Per Day: .25 hour per day Patient and/or Family Agrees t: Yes Safety Risks/Education Patient Education: Safety Issues Teaching Recipient: Patient Teaching Methods: Discussion Response to Teaching: Return Demonstration Discharge Recommendations Plan Recheck tomorrow, if pt safe with gait will plan to discharge. Time/GCodes Time In: 1520 Time Out: 1535 Total Billed Treatment Time: 15 Total Billed Treatment visit EVL 15 MONICA BROWN PT Jul 10, 2019 15:45
[2019-07-10 16:05] VITALS: BP 108/53
[2019-07-10 20:30] VITALS: BP 112/55
[2019-07-10] MEDS: cloNIDine 0.1 MG (CATAPRES) TAB PO SCH (20:43)
[2019-07-11 00:10] VITALS: BP_SYST 108; BP_SYST 153; BP_DIAS 61; BP_DIAS 89
[2019-07-11] MEDS: PIPERACILLIN/TAZO 4.5 GM/NS 100 ML IV SCH ×8 (00:18→23:31)
[2019-07-11] MEDS: RT-ALBUTEROL/IPRATROPIUM 3 ML (DUONEB) VIAL INH SCH ×4 (02:25→19:24)
[2019-07-11] MEDS: glipiZIDE 5 MG (GLUCOTROL) TAB PO SCH ×2 (06:15→18:35)
[2019-07-11] MEDS: inSUlin ASPART (NovoLOG) 1 UNIT/0.01 ML (CHARGE PER UNIT) SC SCH ×4 (06:15→21:19)
[2019-07-11 06:24] LABS: BASOPHILS % (AUTO) 0 % (0-10); EOSINOPHILS % (AUTO) 0 % (0-10); HEMATOCRIT 31 % (35-52); HEMOGLOBIN 10.2 G/DL (11.5-16.0); LYMPHOCYTES # (AUTO) 0.8 X 10^3 (1.0-4.0); LYMPHOCYTES % (AUTO) 5 % (12-44); MEAN CORPUSCULAR HEMOGLOBIN 27 PG (25-34); MEAN CORPUSCULAR HGB CONC 33 G/DL (32-36); MEAN CORPUSCULAR VOLUME 83 FL (80-99); MEAN PLATELET VOLUME 10.2 FL (7.4-10.4); MONOCYTES # (AUTO) 0.3 X 10^3 (0.0-1.0); MONOCYTES % (AUTO) 2 % (0-12); NEUTROPHILS # (AUTO) 13.2 X 10^3 (1.8-7.8); NEUTROPHILS % (AUTO) 92 % (42-75); PLATELET COUNT 221 10^3/uL (130-400); WHITE BLOOD COUNT 14.3 10^3/uL (4.3-11.0)
[2019-07-11 06:54] LABS: ANISOCYTOSIS SLIGHT; BAND NEUTROPHILS 0 %; BASOPHILS % (MANUAL) 0 %; EOSINOPHILS % (MANUAL) 0 %; LYMPHOCYTES % (MANUAL) 8 %; MONOCYTES % (MANUAL) 1 %; NEUTROPHILS % (MANUAL) 91 %
[2019-07-11 07:04] LABS: ALBUMIN 3.2 GM/DL (3.2-4.5); BILIRUBIN,TOTAL 0.2 MG/DL (0.1-1.0); CALCIUM 8.6 MG/DL (8.5-10.1); CREATININE SERUM 1.25 MG/DL (0.60-1.30); POTASSIUM 4.3 MMOL/L (3.6-5.0); TOTAL PROTEIN 6.3 GM/DL (6.4-8.2)
[2019-07-11 08:00] VITALS: BP 112/55
[2019-07-11] MEDS: methylPREDNISolone 40 MG/ML (Solu-MEDROL) VIAL IV SCH ×2 (08:37→21:16)
[2019-07-11] MEDS: FOLIC ACID 1 MG TAB PO SCH (08:37)
[2019-07-11] MEDS: ENOXAPARIN 40 MG/0.4 ML (LOVENOX) SYR SC SCH ×2 (08:37→21:18)
[2019-07-11] MEDS: BENZONATATE 100 MG (TESSALON) CAPSULE PO SCH ×3 (08:38→21:17)
[2019-07-11] MEDS: GABAPENTIN 600 MG (NEURONTIN) TAB PO SCH ×3 (08:38→21:17)
[2019-07-11] MEDS: PANTOPRAZOLE 20 MG TABLET (PROTONIX) PO SCH (08:38)
[2019-07-11] MEDS: HYDROCODONE/CHLOR 10MG/5 ML (TUSSIONEX SUSP) 5ML UDC PO SCH ×2 (08:38→21:16)
--- NOTE | 2019-07-11 10:01 | Physical Therapy Daily Note ---
PT Daily Note-Current Subjective Patient is up independently in room without difficulty and agrees to PT. Pain Numeric Pain Scale: 0-No Pain Location: No Pain Reported Mental Status Patient Orientation: Normal For Age Attachments: IV Transfers SCALE: Activities may be completed with or without assistive devices. 4-Lbmdaquazb-clbpgrm completes the activity by him/herself with no assistance from a helper. 5-Set-up or Clean-up Assistance-helper sets up or cleans up; patient completes activity. [place] assists only prior to or following the activity. 4-Supervision or Touching Assistance-helper provides verbal cues and/or touching/steadying and/or contact guard assistance as patient completes activity. Assistance may be provided throughout the activity or intermittently. 3-Partial/Moderate Assistance-helper does LESS THAN HALF the effort. [place] lifts, holds or supports trunk or limbs, but provides less than half the effort. 2-Substantial/Maximal Assistance-helper does MORE THAN HALF the effort. [place] lifts or holds trunk or limbs and provides more than half the effort. 7-Heuemvvdr-urwzsa does ALL the effort. Patient does none of the effort to complete the activity. Or, the assistance of 2 or more helpers is required for the patient to complete the activity. If activity was not attempted, code reason: 7-Patient Refused. 9-Not Applicable-not attempted and the patient did not perform the activity before the current illness, exacerbation or injury. 10-Not Attempted due to Environmental Limitations-(lack of equipment, weather restraints, etc.). 88-Not Attempted due to Medical Conditions or Safety Concerns. Roll Left & Right (QC): 6 Sit to Lying (QC): 6 Lying to Sitting/Side of Bed(Q: 6 Sit to Stand (QC): 6 Toilet Transfer (QC): 6 Gait Training Does the Patient Walk?: Yes Distance: 600' Walk 10 feet (QC): 6 Walk 50 ft with 2 Turns(QC): 6 Walk 150 ft (QC): 6 Gait Assistive Device: None WBOS with gait with no deviation Assessment Patient toileted self without difficulty and ambulates independently with no deviation. PT to dismiss patient from services at this time. RN notified of patient to be up ad moises in [facility]. PT [facility] Goals [facility] Goals PT Cartography Teacher Goals Time Frame: Jul 15, 2019 Roll Left & Right (QC): 6 Sit to Lying (QC): 6 Lying-Sitting on Side/Bed(QC): 6 Sit to Stand (QC): 6 Chair/Cjl-nt-Kwwvi Xfer(QC): 6 Toilet Transfer (QC): 6 Car Transfer (QC): 6 Walk 150 ft (QC): 6 PT Plan Treatment/Plan Treatment Plan: Discontinue PT, goals met Treatment Plan: Functional Activity Ghassan, Gait Treatment Duration: Jul 15, 2019 Frequency: 5 times per week Estimated Hrs Per Day: .25 hour per day Patient and/or Family Agrees t: Yes Time/GCodes Time In: 941 Time Out: 952 Total Billed Treatment Time: 11 Total Billed Treatment 1 visit FA 11 min ISAC VALENZUELA PT Jul 11, 2019 10:01
--- NOTE | 2019-07-11 13:17 | Progress Note - Hospitalist ---
SHORTY FAROOQ, MEDICAL STUDENT 07/11/19 1317: Subjective HPI/CC On Admission Date Seen by Provider: Jul 11, 2019 Time Seen by Provider: 09:00 CC: RLL PNA in immunosuppressed patient with asthma HPI: This is a 53yoAAF clinic patient of [facility] and Dr Spicer Rheumatology who treats her dermatomyositis who is maintained on immunosuppression with MTX who has a h/o asthma and PNA who presents to the ER with dyspnea and cough and fever and was noted to have RLL PNA. Patient currently is coughing and feels fatigued. I placed her on broad spectrum abx due to immunosuppression. Subjective/Events-last exam Patient is feeling slightly better Believes the mucus is breaking up in her lungs but she has not coughed anything up Has not had BM since Mon/Mon, urinating normally. Objective Exam Vital Signs Vital Signs Date Time Temp Pulse Resp B/P (MAP) Pulse Ox O2 Delivery O2 Flow Rate FiO2 07/11/19 10:15 100 Room Air 07/11/19 08:00 35.8 56 20 112/55 (74) 07/09/19 17:03 21 Capillary Refill : Less Than 3 Seconds General Appearance: No Apparent Distress HEENT: PERRL/EOMI, Pharynx Normal Neck: Full Range of Motion, Normal Inspection, Non Tender, Supple Respiratory: Chest Non Tender, No Accessory Muscle Use, Respiratory Distress, Wheezing Cardiovascular: Regular Rate, Rhythm, No Gallop, No JVD, No Murmur, Normal Peripheral Pulses Gastrointestinal: Normal Bowel Sounds, No Organomegaly, Non Tender Rectal: Deferred Back: Normal Inspection, No CVA Tenderness Extremity: Normal Inspection, Normal Range of Motion, Non Tender Neurologic/Psychiatric: Alert, Oriented x3, No Motor/Sensory Deficits, Normal Mood/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 Assessment/Plan Assessment and Plan Assess & Plan/Chief Complaint 65 YO F with PMH Dermatomyositis who is taking methotrexate who now presents with respiratory distress and was found to have pneumonia on CXR. Continue broad spectrum abx Continue steroids Anti-Tussives Patient will likely be discharged tomorrow with home abx Clinical Quality Measures DVT/VTE Risk/Contraindication: Risk Factor Score Per Nursin RFS Level Per Nursing on Admit: 3=High LUBNA CHAWLA DO 07/11/192026: Subjective Subjective/Events-last exam Home O2 evaluation enduring exertion will be tested Cough persists but feels better about it Denies any significant productivity in her cough No pain in reported Review of Systems Pulmonary: Dyspnea, Cough Objective Exam General Appearance: No Apparent Distress, WD/WN, Chronically ill, Obese Respiratory: No Accessory Muscle Use, No Respiratory Distress, Crackles, Decreased Breath Sounds, Wheezing Cardiovascular: Regular Rate, Rhythm Neurologic/Psychiatric: Alert, Oriented x3, No Motor/Sensory Deficits, Normal Mood/Affect Assessment/Plan Assessment and Plan Assess & Plan/Chief Complaint DC home tomorrow Does not need home O2 after tested Monitor lungs Diagnosis/Problems Diagnosis/Problems (1) Pneumonia Status: Acute Qualifiers: Qualified Codes: J18.1 - Lobar pneumonia, unspecified organism (2) 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 I reviewed and verified all information documented by the medical student and made modifications to such information, when appropriate. I personally performed the physical exam and medical decision making. Lubna Chawla, Jul 11, 2019,20:27 SHORTY FAROOQ, MEDICAL STUDENT Jul 11, 2019 13:17 LUBNA CHAWLA DO Jul 11, 2019 20:27
--- NOTE | 2019-07-11 13:55 | NUR ---
SPO2 DID NOT DROP BELOW 90% WITH EXERTION. Addendum: 07/11/19 at 1409 by LINDSEY DAVID RT SPO2 DID NOT DROP BELOW 90% WITH EXERTION ON ROOM AIR. Addendum: 07/11/19 at 1409 by LINDSEY DAVID RT Amended: Links added.
[2019-07-11 16:00] VITALS: BP 120/59
[2019-07-11 21:16] VITALS: BP 100/55
[2019-07-11] MEDS: cloNIDine 0.1 MG (CATAPRES) TAB PO SCH (21:30)
--- NOTE | 2019-07-11 22:04 | NUR ---
1930-attempted to assess pt, pt on phone at this time, will return at a later time.
[2019-07-12 00:23] VITALS: BP 109/59
[2019-07-12] MEDS: inSUlin ASPART (NovoLOG) 1 UNIT/0.01 ML (CHARGE PER UNIT) SC SCH ×4 (05:57→21:46)
[2019-07-12] MEDS: glipiZIDE 5 MG (GLUCOTROL) TAB PO SCH ×2 (05:57→18:39)
[2019-07-12 06:35] LABS: BASOPHILS % (AUTO) 0 % (0-10); EOSINOPHILS % (AUTO) 0 % (0-10); HEMATOCRIT 30 % (35-52); HEMOGLOBIN 9.9 G/DL (11.5-16.0); LYMPHOCYTES # (AUTO) 0.8 X 10^3 (1.0-4.0); LYMPHOCYTES % (AUTO) 6 % (12-44); MEAN CORPUSCULAR HEMOGLOBIN 27 PG (25-34); MEAN CORPUSCULAR HGB CONC 33 G/DL (32-36); MEAN CORPUSCULAR VOLUME 83 FL (80-99); MEAN PLATELET VOLUME 9.8 FL (7.4-10.4); MONOCYTES # (AUTO) 0.4 X 10^3 (0.0-1.0); MONOCYTES % (AUTO) 3 % (0-12); NEUTROPHILS # (AUTO) 11.7 X 10^3 (1.8-7.8); NEUTROPHILS % (AUTO) 91 % (42-75); PLATELET COUNT 232 10^3/uL (130-400); RED CELL DISTRIBUTION WIDTH 16.4 % (10.0-14.5); WHITE BLOOD COUNT 12.8 10^3/uL (4.3-11.0)
[2019-07-12 06:58] LABS: ALBUMIN 3.3 GM/DL (3.2-4.5); BILIRUBIN,TOTAL 0.2 MG/DL (0.1-1.0); CALCIUM 8.9 MG/DL (8.5-10.1); CREATININE SERUM 1.29 MG/DL (0.60-1.30); POTASSIUM 4.1 MMOL/L (3.6-5.0); TOTAL PROTEIN 6.5 GM/DL (6.4-8.2)
[2019-07-12] MEDS: ENOXAPARIN 40 MG/0.4 ML (LOVENOX) SYR SC SCH ×2 (07:29→21:45)
[2019-07-12] MEDS: PIPERACILLIN/TAZO 4.5 GM/NS 100 ML IV SCH ×4 (07:29→15:29)
[2019-07-12 07:50] VITALS: BP 146/72
[2019-07-12] MEDS: methylPREDNISolone 40 MG/ML (Solu-MEDROL) VIAL IV SCH (08:12)
[2019-07-12] MEDS: PANTOPRAZOLE 20 MG TABLET (PROTONIX) PO SCH (08:13)
[2019-07-12] MEDS: HYDROCODONE/CHLOR 10MG/5 ML (TUSSIONEX SUSP) 5ML UDC PO SCH ×2 (08:13→21:45)
[2019-07-12] MEDS: BENZONATATE 100 MG (TESSALON) CAPSULE PO SCH ×3 (08:13→21:45)
[2019-07-12] MEDS: FOLIC ACID 1 MG TAB PO SCH (08:13)
[2019-07-12] MEDS: GABAPENTIN 600 MG (NEURONTIN) TAB PO SCH ×3 (08:13→21:45)
[2019-07-12] MEDS: RT-ALBUTEROL/IPRATROPIUM 3 ML (DUONEB) VIAL INH SCH ×3 (09:30→21:59)
[2019-07-12 09:33] VITALS: BP 146/72
--- NOTE | 2019-07-12 12:55 | Progress Note - Hospitalist ---
SHORTY FAROOQ, MEDICAL STUDENT 07/12/19 1255: Subjective HPI/CC On Admission Date Seen by Provider: Jul 12, 2019 Time Seen by Provider: 09:00 CC: RLL PNA in immunosuppressed patient with asthma HPI: This is a 53yoAAF clinic patient of [facility] and Dr Spicer Rheumatology who treats her dermatomyositis who is maintained on immunosuppression with MTX who has a h/o asthma and PNA who presents to the ER with dyspnea and cough and fever and was noted to have RLL PNA. Patient currently is coughing and feels fatigued. I placed her on broad spectrum abx due to immunosuppression. Subjective/Events-last exam Patient explained that she has been having watery diarrhea Also been having stress incontinence and release of similar watery diarrhea when she coughs Otherwise doing well, patient mentioned she coughed up a small amount of phlegm that was clear Objective Exam Vital Signs Vital Signs Date Time Temp Pulse Resp B/P (MAP) Pulse Ox O2 Delivery O2 Flow Rate FiO2 07/12/19 09:33 36.4 76 99 21 07/12/19 09:30 Room Air 07/12/19 07:50 18 146/72 (96) Capillary Refill : Less Than 3 Seconds General Appearance: Mild Distress HEENT: Normal ENT Inspection, Pharynx Normal Neck: Full Range of Motion, Non Tender Respiratory: Chest Non Tender, No Accessory Muscle Use, Crackles Cardiovascular: Regular Rate, Rhythm, No Edema, No Gallop, No JVD, No Murmur Gastrointestinal: Normal Bowel Sounds, No Organomegaly, No Pulsatile Mass, Non Tender Rectal: Deferred Extremity: Normal Range of Motion, Non Tender Neurologic/Psychiatric: Alert, Oriented x3, No Motor/Sensory Deficits, Normal 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 Assessment/Plan Assessment and Plan Assess & Plan/Chief Complaint 65 YO F with PMH Dermatomyositis who is taking methotrexate who now presents with respiratory distress and was found to have pneumonia on CXR. PNA Continue broad spectrum abx Continue steroids Anti-Tussives Diarrhea Trial Cholestyramine Test patient for C Diff Clinical Quality Measures DVT/VTE Risk/Contraindication: Risk Factor Score Per Nursin RFS Level Per Nursing on Admit: 3=High KAYCE CHERRY MD 07/12/19 1704: Objective Exam Respiratory: Wheezing Assessment/Plan Assessment and Plan Assess & Plan/Chief Complaint Pneumonia- improved by CXR and clinically- will change to PO AbX and d/c solumedrol diarrhea- C.Diff negative- trial of questran Dermatomyositis-hx of being on MTX- on hold DM - out of control secondary to steroids Anemia-most likely from chronic dz D/C possible in am Supervisory-Addendum Brief Verification & Attestation Participated in pt care: history Personally performed: exam, history Care discussed with: Medical Student Procedures: n/a Verification and Attestation of Medical Student E/M Service A medical student performed and documented this service in my presence. I reviewed and verified all information documented by the medical student and made modifications to such information, when appropriate. I personally performed the physical exam and medical decision making. Kayce Cherry, Jul 12, 2019,17:06 verified history by review, examined in addition to student SHORTY FAROOQ, MEDICAL STUDENT Jul 12, 2019 12:55 KAYCE CHERRY MD Jul 12, 2019 17:04
[2019-07-12] MEDS: CHOLESTYRAMINE 4 GM (QUESTRAN LITE, PREVALITE) PKT PO SCH (14:58)
[2019-07-12 16:00] VITALS: BP 146/72
[2019-07-12] MEDS: CEFDINIR 300 MG (OMNICEF) CAP PO SCH (21:45)
[2019-07-12] MEDS: cloNIDine 0.1 MG (CATAPRES) TAB PO SCH (21:45)
[2019-07-12 23:30] VITALS: BP 112/58
[2019-07-13] MEDS: RT-ALBUTEROL/IPRATROPIUM 3 ML (DUONEB) VIAL INH SCH ×2 (02:31→03:39)
[2019-07-13] MEDS: glipiZIDE 5 MG (GLUCOTROL) TAB PO SCH (06:37)
[2019-07-13] MEDS: inSUlin ASPART (NovoLOG) 1 UNIT/0.01 ML (CHARGE PER UNIT) SC SCH ×2 (06:37→11:05)
[2019-07-13] MEDS ORDERED: predniSONE 20 MG TAB PO SCH (07:00)
[2019-07-13 08:00] VITALS: BP 128/64
[2019-07-13] MEDS: CEFDINIR 300 MG (OMNICEF) CAP PO SCH (09:17)
[2019-07-13] MEDS: CHOLESTYRAMINE 4 GM (QUESTRAN LITE, PREVALITE) PKT PO SCH (09:17)
[2019-07-13] MEDS: ENOXAPARIN 40 MG/0.4 ML (LOVENOX) SYR SC SCH (09:17)
[2019-07-13] MEDS: FOLIC ACID 1 MG TAB PO SCH (09:17)
[2019-07-13] MEDS: GABAPENTIN 600 MG (NEURONTIN) TAB PO SCH ×2 (09:18→13:30)
[2019-07-13] MEDS: BENZONATATE 100 MG (TESSALON) CAPSULE PO SCH ×2 (09:18→13:30)
[2019-07-13] MEDS: PANTOPRAZOLE 20 MG TABLET (PROTONIX) PO SCH (09:18)
[2019-07-13] MEDS: HYDROCODONE/CHLOR 10MG/5 ML (TUSSIONEX SUSP) 5ML UDC PO SCH (09:18)
[2019-07-13] MEDS ORDERED: PRD20T PO (13:08)
[2019-07-13] MEDS ORDERED: CEFD300C3 PO (13:08)
[2019-07-13 13:30] VITALS: BP 128/64
== END 2019-07-13 13:30 | disposition home or self-care (01) | DRG 194 ==
LOC: EDUNIT# 14:00 → ER 14:01 → 4TH 16:35
PROVIDERS: ADMIT Internal Medicine; ATTEND Internal Medicine
DX: J18.9 Pneumonia, unspecified organism (principal); J45.909 Unspecified asthma, uncomplicated; M33.90 Dermatopolymyositis, unspecified, organ involvement unspecified; Z68.42 Body mass index [BMI] 45.0-49.9, adult; I10 Essential (primary) hypertension; R09.02 Hypoxemia; I34.1 Nonrheumatic mitral (valve) prolapse; E11.40 Type 2 diabetes mellitus with diabetic neuropathy, unspecified; E11.65 Type 2 diabetes mellitus with hyperglycemia; K21.9 Gastro-esophageal reflux disease without esophagitis; M19.91 Primary osteoarthritis, unspecified site; F41.9 Anxiety disorder, unspecified; F31.9 Bipolar disorder, unspecified; E66.9 Obesity, unspecified; N39.3 Stress incontinence (female) (male); R19.7 Diarrhea, unspecified; Z79.899 Other long term (current) drug therapy; Z79.52 Long term (current) use of systemic steroids; Z79.4 Long term (current) use of insulin
CPT/HCPCS: 36415; 36600; 71045; 71046; 80053; 80061; 82805; 82962; 83735; 83874; 83880; 84484; 85007; 85025; 85027; 85610; 85730; 87040; 87324; 87449; 87804; 93005; 94640; 94664; 94760; 94761; 96361; 96365; 96375

== ENCOUNTER → 2019-10-25 | Outpatient (CLI) | payer MEDICAID ==
[~2019-10-25] MED LIST changes: +ACHYD1T PO; +BREX2TAB PO; +CLON0.1T PO; +GLYC15DR OU; -HYDR-3820 PO; +INSU100I29 SQ; -MONT10TA24; +MONT10TA26; +NABU500T PO; -OMEP-280 PO; +OMEP20CA18 PO; +POTA-51 PO; +POTA10TA36 PO; +RT-ALBUINH IH; +TRAZ-227 PO
[2019-10-25 13:40] LABS: BASOPHILS % (AUTO) 0 % (0-10); EOSINOPHILS # (AUTO) 0.4 10^3/uL (0.0-0.3); EOSINOPHILS % (AUTO) 6 % (0-10); HEMATOCRIT 37 % (35-52); HEMOGLOBIN 12.2 G/DL (11.5-16.0); LYMPHOCYTES # (AUTO) 2.1 X 10^3 (1.0-4.0); LYMPHOCYTES % (AUTO) 31 % (12-44); MEAN CORPUSCULAR HEMOGLOBIN 27 PG (25-34); MEAN CORPUSCULAR HGB CONC 33 G/DL (32-36); MEAN CORPUSCULAR VOLUME 81 FL (80-99); MONOCYTES # (AUTO) 0.6 X 10^3 (0.0-1.0); MONOCYTES % (AUTO) 8 % (0-12); NEUTROPHILS # (AUTO) 3.8 X 10^3 (1.8-7.8); NEUTROPHILS % (AUTO) 55 % (42-75); PLATELET COUNT 235 10^3/uL (130-400); RED CELL DISTRIBUTION WIDTH 16.9 % (10.0-14.5); WHITE BLOOD COUNT 6.9 10^3/uL (4.3-11.0)
[2019-10-25 13:59] LABS: ALBUMIN 3.7 GM/DL (3.2-4.5); BILIRUBIN,DIRECT 0.1 MG/DL (0.0-0.3); BILIRUBIN,INDIRECT 0.1 MG/DL; BILIRUBIN,TOTAL 0.2 MG/DL (0.1-1.0); CREATININE SERUM 1.34 MG/DL (0.60-1.30); TOTAL PROTEIN 7.3 GM/DL (6.4-8.2)
[2019-10-25 14:28] LABS: ERYTHROCYTE SEDIMENTATION RATE 29 MM/HR (0-30)
== END ==
LOC: LAB 13:25
PROVIDERS: ATTEND Internal Medicine Rheumatology
DX: M33.90 Dermatopolymyositis, unspecified, organ involvement unspecified (principal)
CPT/HCPCS: 36415; 80076; 82085; 82550; 82565; 85025; 85652; 86141

== ENCOUNTER 2020-06-08 08:58 | Outpatient (RCR) | payer MEDICAID ==
[~2020-06-08 08:58] MED LIST changes: +CLN.1T PO; -CLON0.1T PO; -MONT10TA26; +MONT10TA97; +NABU-88 PO; -NABU500T PO
== END 2020-06-10 | disposition home or self-care (01) ==
PROVIDERS: ATTEND Psychiatry & Neurology Neurology
DX: G57.12 Meralgia paresthetica, left lower limb (principal); M62.838 Other muscle spasm; I10 Essential (primary) hypertension; E11.9 Type 2 diabetes mellitus without complications; J45.909 Unspecified asthma, uncomplicated; R25.9 Unspecified abnormal involuntary movements

== ENCOUNTER → 2020-06-16 | Outpatient (CLI) | payer MEDICAID ==
[~2020-06-16] MED LIST changes: -FOLI1TAB24 PO; +FOLI1TAB33 PO
--- NOTE | 2020-06-16 16:04 | Diagnostic Imaging Report ---
INDICATION: Bilateral knee pain. COMPARISON: 11/09/2010 FINDINGS: Three radiographic views of the bilateral knees were obtained. There is no acute fracture or dislocation. Osseous structures are intact. There are mild degenerative changes consisting of mild joint space narrowing and small osteophyte formations. There is also slight lateral subluxation of the tibia in respect to the distal femur. Joint spaces are otherwise maintained. There is no large joint effusion. No unexpected radiopaque foreign bodies are identified. IMPRESSION: 1. No acute fracture or dislocation of either knee. 2. Mild osteoarthritic changes. Dictated by: Dictated on workstation # [id number]
== END ==
LOC: RAD 13:20
PROVIDERS: ATTEND Internal Medicine Rheumatology
DX: M17.0 Bilateral primary osteoarthritis of knee (principal)

== ENCOUNTER 2020-07-22 15:30 | Outpatient (RCR) | payer MEDICARE, MEDICAID ==
[~2020-07-22 15:30] MED LIST changes: +MONT10TA32; -MONT10TA97; -NABU-88 PO; +NABU500T8 PO
== END 2020-07-29 13:50 | disposition home or self-care (01) ==
PROVIDERS: ATTEND Psychiatry & Neurology Neurology
DX: G57.12 Meralgia paresthetica, left lower limb (principal); M62.838 Other muscle spasm; I10 Essential (primary) hypertension; E11.9 Type 2 diabetes mellitus without complications; J45.909 Unspecified asthma, uncomplicated; R25.9 Unspecified abnormal involuntary movements

== ENCOUNTER → 2020-08-24 | Outpatient (CLI) | payer MEDICARE, MEDICAID ==
[~2020-08-24] MED LIST changes: +NABU-88 PO; -NABU500T8 PO
--- NOTE | 2020-08-24 15:01 | Diagnostic Imaging Report ---
EXAMINATION: Lumbar spine at 2:17 p.m. INDICATION: Low back pain. AP and lateral views were obtained as well as flexion-extension views in the lateral projection. The previous exam of 04/30/2018 noted minimal anterolisthesis of L5 with respect to S1. In reviewing the previous exam I prior would have designated the lumbar bodies as L4 and L5. In the interval since the prior exam the anterolisthesis of L4 with respect to L5 has increased and is now estimated at approximately 6 mm as opposed to 3.3 mm previously. However there does not appear to be any significant motion between the L4 and L5 bodies with flexion or extension. The alignment of the other vertebral bodies is within normal limits and the intervertebral disc spaces are fairly well-maintained. With the exception of L5-S1 the disc space at this level level is narrowed but similar to the prior study. There is no fracture or acute bony abnormality noted. There is no sign of a paraspinal mass. There is mild symmetrical sclerosis of the sacroiliac joints. IMPRESSION: 1. There is no evidence for an acute bony abnormality. 2. The anterolisthesis of L4 with respect to L5 seen previously has increased and there is now grade 1 spondylolisthesis. However there does not appear to be any abnormal motion between the vertebral bodies of L4 and L5 with flexion or extension. 3. If there is clinical concern regarding spinal stenosis or nerve root encroachment, then MRI would be recommended for further study. Dictated by: Dictated on workstation # [id number]
== END ==
LOC: RAD 13:48
PROVIDERS: ATTEND Anesthesiology Pain Medicine
DX: M43.16 Spondylolisthesis, lumbar region (principal)
CPT/HCPCS: 72110

== ENCOUNTER → 2020-08-31 | Outpatient (CLI) | payer MEDICARE, MEDICAID ==
--- NOTE | 2020-08-31 16:10 | Diagnostic Imaging Report ---
INDICATION: Routine screening. COMPARISON: 12/24/2018 and 06/29/2017. TECHNIQUE: 2D and 3D bilateral screening mammography was performed with CAD. FINDINGS: Scattered fibroglandular densities are identified bilaterally. There are benign calcifications in both breasts. No mass or malignant appearing microcalcifications are seen. The axillae are unremarkable. IMPRESSION: No mammographic features suspicious for malignancy are identified. ACR BI-RADS Category 2: Benign findings. Result letter will be mailed to the patient. Note: At least 10% of breast cancer is not imaged by mammography. Dictated by: Dictated on workstation # [id number]
== END ==
LOC: RAD 10:45
PROVIDERS: ATTEND Nurse Practitioner
DX: Z12.31 Encounter for screening mammogram for malignant neoplasm of breast (principal)
CPT/HCPCS: 77063; 77067

== ENCOUNTER 2020-09-30 21:47 | Emergency (ER) | payer MEDICARE, MEDICAID ==
[~2020-09-30] VITALS: Ht 157.5 cm; Wt 38.1 kg
[~2020-09-30 21:47] MED LIST changes: -NABU-88 PO; +NABU500T8 PO
[2020-09-30 22:49] LABS: BASOPHILS % (AUTO) 0 % (0-10); EOSINOPHILS # (AUTO) 0.2 10^3/uL (0.0-0.3); EOSINOPHILS % (AUTO) 4 % (0-10); HEMATOCRIT 34 % (35-52); HEMOGLOBIN 10.8 g/dL (11.5-16.0); LYMPHOCYTES # (AUTO) 1.8 10^3/uL (1.0-4.0); LYMPHOCYTES % (AUTO) 30 % (12-44); MEAN CORPUSCULAR HEMOGLOBIN 28 pg (25-34); MEAN CORPUSCULAR HGB CONC 32 g/dL (32-36); MEAN CORPUSCULAR VOLUME 89 fL (80-99); MEAN PLATELET VOLUME 9.2 fL (9.0-12.2); MONOCYTES # (AUTO) 0.5 10^3/uL (0.0-1.0); MONOCYTES % (AUTO) 8 % (0-12); NEUTROPHILS # (AUTO) 3.3 10^3/uL (1.8-7.8); NEUTROPHILS % (AUTO) 57 % (42-75); PLATELET COUNT 175 10^3/uL (130-400); WHITE BLOOD COUNT 5.8 10^3/uL (4.3-11.0)
[2020-09-30 23:01] LABS: ALBUMIN 3.6 GM/DL (3.2-4.5)
[2020-09-30 23:02] LABS: CHLORIDE 108 MMOL/L (98-107); INR 1.1 (0.8-1.4); POTASSIUM 4.2 MMOL/L (3.6-5.0); PROTHROMBIN TIME PATIENT 14.2 SEC (12.2-14.7); SODIUM 143 MMOL/L (135-145)
[2020-09-30 23:03] LABS: CALCIUM 8.6 MG/DL (8.5-10.1)
[2020-09-30 23:04] LABS: GLUCOSE 102 MG/DL (70-105); TOTAL PROTEIN 6.8 GM/DL (6.4-8.2)
[2020-09-30 23:05] LABS: CARBON DIOXIDE 25 MMOL/L (21-32)
[2020-09-30 23:06] LABS: BILIRUBIN,TOTAL 0.2 MG/DL (0.1-1.0)
[2020-09-30 23:07] LABS: ALKALINE PHOSPHATASE 92 U/L (40-136)
[2020-09-30 23:08] LABS: CREATININE SERUM 1.22 MG/DL (0.60-1.30); GFR ESTIMATED 56
[2020-09-30 23:09] LABS: BUN/CREATININE RATIO 12
[2020-09-30 23:10] LABS: MAGNESIUM 1.9 MG/DL (1.6-2.4)
[2020-09-30 23:11] LABS: ALANINE AMINOTRANSFERASE 10 U/L (0-55); CREATINE KINASE 112 U/L (29-168)
[2020-09-30] MEDS ORDERED: POTA10TA36 PO (23:58)
--- NOTE | 2020-09-30 23:58 | ED General ---
General Chief Complaint: Respiratory Problems Stated Complaint: SOB/ FLUID BUILD UP Nursing Triage Note: PT TO ROOM 10 WITH C/O SOB AND BILAT LOWER EXT SWELLING. PT STATES THAT SHE THINKS SHE HAS FLUID BUILDING UP THAT IS CAUSING THE SOB. Nursing Sepsis Screen: No Definite Risk Allergies and Home Medications Allergies Coded Allergies: latex (Verified Allergy, Unknown, 02/03/18) sertraline (Verified Allergy, Unknown, 02/03/18) aspirin (Unverified Adverse Reaction, Severe, 11/12/10) Home Medications Albuterol Sulfate 1 Puff Puff, 2 PUFF IH Q4H PRN for SHORTNESS OF BREATH, (Reported) 1 PUFF = 90 MCG Brexpiprazole 2 Mg Tablet, 2 MG PO DAILY, (Reported) Cefdinir 300 Mg Capsule, 300 MG PO BID Prescribed by: BONITA CHERRY on 07/13/19 1308 Clonidine HCl 0.1 Mg Tablet, 0.1 MG PO HS, (Reported) Duloxetine HCl 60 Mg Capsule.dr, 60 MG PO , (Reported) LAST RECEIVED 4 MONTH SUPPLY 01-10-19 FROM [facility] Folic Acid 1 Mg Tablet, 1 MG PO MoTuWeThFrSa, (Reported) DOES NOT TAKE ON SUNDAYS WHEN TAKING METHOTREXATE Furosemide 20 Mg Tablet, 20 MG PO DAILY, (Reported) Gabapentin 600 Mg Tablet, 600 MG PO TID, (Reported) LAST FILLED #90 06-06-19 Glipizide 5 Mg Tablet, 5 MG PO , (Reported) Glycerin/Propylene Glycol 15 Ml Drops, 1-2 DROPS OU TID PRN for DRY EYES, (Reported) Hydrocodone Bit/Acetaminophen 1 Each Tablet, 1 TAB PO Q6H PRN for PAIN-MODERATE (5-7), (Reported) Insulin Detemir 100 Unit/1 Ml Insuln.pen, 15-20 UNIT SQ HS, (Reported) Lisinopril/Hydrochlorothiazide 1 Each Tablet, 1 TAB PO DAILY, (Reported) Loratadine 10 Mg Tablet, 10 MG PO DAILY, (Reported) Nabumetone 500 Mg Tablet, 500 MG PO BID, (Reported) LAST FILLED #60 05-14-19 Omeprazole 20 Mg Capsule.dr, 20 MG PO DAILY, (Reported) Pioglitazone HCl 30 Mg Tablet, 30 MG PO DAILY, (Reported) Potassium Chloride 20 Meq Tablet.er, 20 MEQ PO DAILY, (Reported) READY FOR PUBLIC HEALTH SPECIALIST NOW Potassium Chloride 10 Meq Tab.er.prt, 10 MEQ PO DAILY Prescribed by: VLAD RUVALCABA on 09/30/20 5708 Prednisone 20 Mg Tab, 20 MG PO DAILY Take 3 tabs(60mg)daily, decrease by 1/2 tab(10mg)daily. Prescribed by: BONITA CHERRY on 07/13/19 1308 Pseudoephedrine HCl 60 Mg Tablet, 60 MG PO Q6H PRN for CONGESTION, (Reported) Spironolactone 25 Mg Tablet, 25 MG PO DAILY, (Reported) Trazodone HCl 100 Mg Tablet, 100-200 MG PO HS, (Reported) Past Hshdwqs-Fpblks-Dfkruz Hx Patient Social History Alcohol Use: Denies Use Smoking Status: Never a Smoker 2nd Hand Smoke Exposure: No Recent Infectious Disease Expo: No Recent Hopitalizations: No Immunizations Up To Date Tetanus Booster (TDap): Unknown Seasonal Allergies Seasonal Allergies: No Past Medical History Surgeries: Yes Section, Tubal Ligation Respiratory: Yes Asthma Cardiac: Yes (mitral valve prolapse, ) Hypertension Neurological: Yes Neuropathy 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 Disorders: No Genitourinary: Yes Renal Failure, UTI-Chronic Gastrointestinal: Yes Gastroesophageal Reflux Musculoskeletal: Yes Arthritis Endocrine: Yes Diabetes, Insulin dep HEENT: Yes Cancer: No Psychosocial: Yes Anxiety, Bipolar, Depression Integumentary: No Blood Disorders: No Family Medical History No Pertinent Family Hx Physical Exam Vital Signs Vital Signs - First Documented 09/30/20 22:15 Temp 37.1 Pulse 63 Resp 18 B/P (MAP) 120/76 (91) O2 Delivery Room Air Capillary Refill : Less Than 3 Seconds Height, Weight, BMI Height: 5'2.00" Weight: 243lbs. 0.0oz. 110.125779vr; 15.00 BMI Method:Stated Focused Exam Lactate Level 09/30/20 22:40: Lactic Acid Level 1.35 Lactic Acid Level Laboratory Tests Test 09/30/20 22:40 Lactic Acid Level 1.35 MMOL/L (0.50-2.00) Progress/Results/Core Measures Suspected Sepsis Recent Fever Within 48 Hours: No Infection Criteria Present: None New/Unexplained Altered Menta: No Sepsis Screen: No Definite Risk SIRS Temperature: Pulse: 63 Respiratory Rate: 18 Laboratory Tests 09/30/20 22:40: White Blood Count 5.8 Blood Pressure 120 /76 Mean: 91 09/30/20 22:40: Lactic Acid Level 1.35 Laboratory Tests 09/30/20 22:40: Creatinine 1.22, INR Comment 1.1, Platelet Count 175, Total Bilirubin 0.2 Results/Orders Lab Results Laboratory Tests Test 09/30/20 22:40 Range/Units White Blood Count 5.8 4.3-11.0 10^3/uL Red Blood Count 3.80 3.80-5.11 10^6/uL Hemoglobin 10.8 L 11.5-16.0 g/dL Hematocrit 34 L 35-52 % Mean Corpuscular Volume 89 80-99 fL Mean Corpuscular Hemoglobin 28 25-34 pg Mean Corpuscular Hemoglobin Concent 32 32-36 g/dL Red Cell Distribution Width 16.3 H 10.0-14.5 % Platelet Count 175 130-400 10^3/uL Mean Platelet Volume 9.2 9.0-12.2 fL Immature Granulocyte % (Auto) 0 % Neutrophils (%) (Auto) 57 42-75 % Lymphocytes (%) (Auto) 30 12-44 % Monocytes (%) (Auto) 8 0-12 % Eosinophils (%) (Auto) 4 0-10 % Basophils (%) (Auto) 0 0-10 % Neutrophils # (Auto) 3.3 1.8-7.8 10^3/uL Lymphocytes # (Auto) 1.8 1.0-4.0 10^3/uL Monocytes # (Auto) 0.5 0.0-1.0 10^3/uL Eosinophils # (Auto) 0.2 0.0-0.3 10^3/uL Basophils # (Auto) 0.0 0.0-0.1 10^3/uL Immature Granulocyte # (Auto) 0.0 0.0-0.1 10^3/uL Prothrombin Time 14.2 12.2-14.7 SEC INR Comment 1.1 0.8-1.4 Activated Partial Thromboplast Time 33 24-35 SEC Sodium Level 143 135-145 MMOL/L Potassium Level 4.2 3.6-5.0 MMOL/L Chloride Level 108 H 98-107 MMOL/L Carbon Dioxide Level 25 21-32 MMOL/L Anion Gap 10 5-14 MMOL/L Blood Urea Nitrogen 15 7-18 MG/DL Creatinine 1.22 0.60-1.30 MG/DL Estimat Glomerular Filtration Rate 56 BUN/Creatinine Ratio 12 Glucose Level 102 70-105 MG/DL Lactic Acid Level 1.35 0.50-2.00 MMOL/L Calcium Level 8.6 8.5-10.1 MG/DL Corrected Calcium 8.9 8.5-10.1 MG/DL Magnesium Level 1.9 1.6-2.4 MG/DL Total Bilirubin 0.2 0.1-1.0 MG/DL Aspartate Amino Transf (AST/SGOT) 15 5-34 U/L Alanine Aminotransferase (ALT/SGPT) 10 0-55 U/L Alkaline Phosphatase 92 40-136 U/L Total Creatine Kinase 112 29-168 U/L Creatine Kinase MB 1.0 <6.6 NG/ML Myoglobin 41.9 10.0-92.0 NG/ML Troponin I < 0.028 <0.028 NG/ML B-Type Natriuretic Peptide 116.5 H <100.0 PG/ML Total Protein 6.8 6.4-8.2 GM/DL Albumin 3.6 3.2-4.5 GM/DL My Orders Orders - VLAD RUVALCABA DO Ed Iv/Invasive Line Start (09/30/20 22:11) Ekg Tracing (09/30/20:) O2 (09/30/20:11) Monitor-Rhythm Ecg Trace Only (09/30/20:11) Chest 1 View, Ap/Pa Only (09/30/20 22:11) BNP (09/30/20 22:11) Cbc With Automated Diff (09/30/20 22:11) Comprehensive Metabolic Panel (09/30/20 22:11) Creatine Kinase (09/30/20 22:11) Creatine Kinase Mb (09/30/20 22:11) Lactic Acid Analyzer (09/30/20 22:11) Magnesium (09/30/20 22:11) Protime With Inr (09/30/20:11) Partial Thromboplastin Time (09/30/20 22:11) Troponin I (09/30/20 22:11) Influenza A And B Antigens (09/30/20 22:11) Myoglobin Serum (09/30/20 22:11) Covid 19 Inhouse Test (09/30/20 22:11) Furosemide Injection (Lasix Injection) (10/01/20 00:00) Medications Given in ED Current Medications Medications Dose Ordered Sig/Edel Route Start Time Stop Time Status Last Admin Dose Admin Furosemide 80 mg ONCE ONCE IVP 10/01/20 00:00 10/01/20 00:01 DC 10/01/20 00:02 80 MG Vital Signs/I&O 09/30/20 22:15 Temp 37.1 Pulse 63 Resp 18 B/P (MAP) 120/76 (91) O2 Delivery Room Air Capillary Refill : Less Than 3 Seconds Blood Pressure Mean: 91 Departure Impression Primary Impression: Leg edema Disposition: HOME, SELF-CARE Condition: Stable Departure-Patient Inst. Decision time for Depature: 23:45 Referrals: SENDY THEODORE MD (PCP) Primary Care Physician Patient Instructions: DASH Diet, Dependent Edema (DC), Low Salt Diet Add. Discharge Instructions: CONTINUE YOUR REGULAR MEDICATIONS PRESCRIBED, EXCEPT DOUBLE YOUR LASIX ( FLUID PILL) FOR THE NEXT 7 TO 10 DAYS PUBLIC HEALTH SPECIALIST PRESCRIPTION FOR POTASSIUM, AND TAKE THE POTASSIUM WHEN YOU TAKE A DOUBLE DOSE OF LASIX FOLLOW UP WITH YOUR DR IN 2-3 DAYS IF NO BETTERM, OTHERWISE RECHECK IN 1 WEEK WITH YOUR REGULAR DR All discharge instructions reviewed with patient and/or family. Voiced understanding. Scripts Potassium Chloride (Potassium Chloride) 10 Meq Tab.er.prt 10 MEQ PO DAILY, #10 TAB 0 Refills Prov: VLAD RUVALCABA DO 10/01/20 VLAD RUVALCABA DO September 30, 2020 23:58
[2020-10-01] MEDS ORDERED: FUROSEMIDE 40 MG/4 ML INJ (LASIX) IVP ONE
[2020-10-01] MEDS ORDERED: POTA10TA36 PO (00:06)
[2020-10-01 00:37] VITALS: BP 122/69
--- NOTE | 2020-10-01 07:01 | Diagnostic Imaging Report ---
PATIENT HISTORY: DYSPNEA. TECHNIQUE: Single frontal view of the chest. COMPARISON: 07/10/2019 FINDINGS: The lung volumes are normal. No focal consolidation is seen. No large pleural effusion or pneumothorax is seen. The cardiomediastinal silhouette is normal in size and contour. No acute osseous abnormality is seen. IMPRESSION: No acute pulmonary abnormality seen. Dictated by: Dictated on workstation # [id number]
== END 2020-10-01 00:34 | disposition home or self-care (01) ==
LOC: EDUNIT# 21:47 → ER 21:51
DX: R60.0 Localized edema (principal); J45.909 Unspecified asthma, uncomplicated; I10 Essential (primary) hypertension; K21.9 Gastro-esophageal reflux disease without esophagitis; E11.9 Type 2 diabetes mellitus without complications; F41.9 Anxiety disorder, unspecified; F32.9 Major depressive disorder, single episode, unspecified; Z91.040 Latex allergy status; Z88.8 Allergy status to other drugs, medicaments and biological substances; Z79.52 Long term (current) use of systemic steroids; Z79.4 Long term (current) use of insulin; Z79.899 Other long term (current) drug therapy
CPT/HCPCS: 71045; 80053; 82550; 82553; 83605; 83735; 83874; 83880; 84484; 85610; 85730; 93005; 93041

== ENCOUNTER 2020-10-15 09:15 | Outpatient (RCR) | payer MEDICARE, MEDICAID ==
[~2020-10-15 09:15] MED LIST changes: -PSEU60TA21 PO; +PSEU60TA87 PO
== END 2020-10-15 14:16 | disposition home or self-care (01) ==
PROVIDERS: ATTEND Psychiatry & Neurology Neurology
DX: G57.12 Meralgia paresthetica, left lower limb (principal); M62.838 Other muscle spasm; R25.9 Unspecified abnormal involuntary movements

== ENCOUNTER → 2020-11-13 | Outpatient (CLI) | payer MEDICARE, MEDICAID | LOC: CARD 10:30 | PROVIDERS: ATTEND Internal Medicine Cardiovascular Disease | DX: R06.09 Other forms of dyspnea (principal) | CPT/HCPCS: 93306 ==

== ENCOUNTER → 2020-11-17 | Outpatient (CLI) | payer MEDICARE, MEDICAID ==
[~2020-11-17] MED LIST changes: +REGADENOSON 0.4 MG/5 ML SYR (LEXISCAN) IV ONE
[2020-11-17] MEDS: CATHETER FLUSH 10 ML SYR IV PRN ×2 (08:19→09:35)
[2020-11-17 09:29] VITALS: BP 122/54
== END ==
LOC: CARD 08:15
PROVIDERS: ATTEND Internal Medicine Cardiovascular Disease
DX: R06.09 Other forms of dyspnea (principal)
CPT/HCPCS: 78452; 93017; A9502

== ENCOUNTER 2020-12-19 12:00 | Outpatient (RCR) | payer MEDICARE, MEDICAID ==
[2020-12-16 15:05] LABS: HEMOGLOBIN 11.1 g/dL (11.5-16.0)
[2020-12-16 15:20] LABS: INR 1.1 (0.8-1.4); PROTHROMBIN TIME PATIENT 14.7 SEC (12.2-14.7)
[2020-12-16 15:27] LABS: ALBUMIN 3.5 GM/DL (3.2-4.5); BILIRUBIN,DIRECT 0.2 MG/DL (0.0-0.3); BILIRUBIN,INDIRECT 0.1 MG/DL; BILIRUBIN,TOTAL 0.3 MG/DL (0.1-1.0); TOTAL PROTEIN 7.1 GM/DL (6.4-8.2)
[~2020-12-19 12:00] MED LIST changes: -REGADENOSON 0.4 MG/5 ML SYR (LEXISCAN) IV ONE; -SULF1TAB35 PO; +SULF1TAB38 PO
== END 2021-03-16 | disposition home or self-care (01) ==
LOC: LAB 12:00
PROVIDERS: ATTEND Nurse Practitioner
DX: D64.9 Anemia, unspecified (principal); K29.70 Gastritis, unspecified, without bleeding; K76.6 Portal hypertension
CPT/HCPCS: 36415; 80076; 82274; 82390; 82728; 82784; 82977; 83540; 83550; 84443; 85014; 85018; 85610; 85730; 86038; 86039; 86255; 86376; 86677

== ENCOUNTER → 2021-03-18 | Outpatient (CLI) | payer MEDICARE, MEDICAID | LOC: CARD 12:00 | PROVIDERS: ATTEND Nurse Practitioner Family | DX: R00.2 Palpitations (principal) | CPT/HCPCS: 93225; 93226 ==

== ENCOUNTER → 2021-04-20 | Outpatient (CLI) | payer MEDICARE, MEDICAID ==
[~2021-04-20] MED LIST changes: -LISI1TAB26 PO; +LISI1TAB48 PO; +MONT-40; -MONT10TA32; +POTA-179 PO; -POTA10TA36 PO; +POTA10TA37 PO; -POTA20TA15 PO; +TIZA-186; -TIZA4TAB4
[2021-04-20 10:35] LABS: BILIRUBIN,URINE NEGATIVE (NEGATIVE); CLARITY,URINE SL CLOUDY; COLOR,URINE YELLOW; GLUCOSE, URINE (UA) NEGATIVE (NEGATIVE); KETONES,URINE NEGATIVE (NEGATIVE); LEUKOCYTE ESTERASE ,URINE 1+ (NEGATIVE); NITRITE,URINE NEGATIVE (NEGATIVE); PROTEIN,URINE NEGATIVE (NEGATIVE)
[2021-04-20 10:43] LABS: BASOPHILS % (AUTO) 1 % (0-10); EOSINOPHILS # (AUTO) 0.2 10^3/uL (0.0-0.3); EOSINOPHILS % (AUTO) 3 % (0-10); HEMATOCRIT 41 % (35-52); HEMOGLOBIN 13.4 g/dL (11.5-16.0); LYMPHOCYTES % (AUTO) 30 % (12-44); MEAN CORPUSCULAR HEMOGLOBIN 25 pg (25-34); MEAN CORPUSCULAR HGB CONC 32 g/dL (32-36); MEAN CORPUSCULAR VOLUME 78 fL (80-99); MEAN PLATELET VOLUME 9.5 fL (9.0-12.2); MONOCYTES # (AUTO) 0.4 10^3/uL (0.0-1.0); MONOCYTES % (AUTO) 6 % (0-12); NEUTROPHILS % (AUTO) 61 % (42-75); PLATELET COUNT 228 10^3/uL (130-400); WHITE BLOOD COUNT 6.6 10^3/uL (4.3-11.0)
[2021-04-20 10:48] LABS: BACTERIA,URINE FEW /HPF
[2021-04-20 11:02] LABS: ALBUMIN 3.7 GM/DL (3.2-4.5); BILIRUBIN,TOTAL 0.3 MG/DL (0.1-1.0); CALCIUM 9.3 MG/DL (8.5-10.1); CREATININE SERUM 1.22 MG/DL (0.60-1.30); TOTAL PROTEIN 7.7 GM/DL (6.4-8.2)
[2021-04-20 11:20] LABS: ERYTHROCYTE SEDIMENTATION RATE 25 MM/HR (0-30)
== END ==
LOC: LAB 10:18
DX: L30.4 Erythema intertrigo (principal); L30.9 Dermatitis, unspecified
CPT/HCPCS: 36415; 80053; 81000; 85025; 85652; 86038; 86039; 86160; 86225; 86235; 87088

== ENCOUNTER 2021-08-03 23:28 | Emergency (ER) | payer MEDICARE, MEDICAID ==
[~2021-08-03] VITALS: Ht 157.4 cm; Wt 109.3 kg
--- NOTE | 2021-08-03 23:46 | ED Cardiac General ---
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 MENDOZA AND HAD AN APPOINTMENT WITH HIM ON Monday08/02/21 AND IS SCHEDULED TO HAVE A MONTH-LONG HEART MONITOR PLACED THIS Monday08/05/21. STATES SHE FEELS SLIGHTLY SHORT OF BREATH, BUT PT HAS CHRONIC DYSPNEA ON EXERTION NO SWEATS TONIGHT, BUT STATES SHE FREQUENTLY SWEATS FOR NO REASON NO NAUSEA/VOMITING TONIGHT, BUT HAS CHRONIC NAUSEA NO CHANGE IN CHRONIC LEG SWELLING NO DIZZINESS OR SYNCOPE NO MISSED DOSES OF MEDICATIONS OR ANY CHANGES IN MEDICATIONS Allergies and Home Medications Allergies Coded Allergies: latex (Verified Allergy, Unknown, 02/03/18) sertraline (Verified Allergy, Unknown, 02/03/18) aspirin (Unverified Adverse Reaction, Severe, 11/12/10) Patient Home Medication List Home Medication List Reviewed: Yes Albuterol Sulfate (Proair Hfa) 1 Puff Puff, 2 PUFF IH Q4H PRN for SHORTNESS OF BREATH, (Reported) Entered as Reported by: MAXIM CERNA on 07/10/19 1056 Brexpiprazole (Rexulti) 2 Mg Tablet, 2 MG PO DAILY, (Reported) Entered as Reported by: MAXIM CERNA on 07/10/19 1056 Cefdinir (Cefdinir) 300 Mg Capsule, 300 MG PO BID Prescribed by: BONITA CHERRY on 07/13/19 1308 Clonidine HCl (Clonidine HCl) 0.1 Mg Tablet, 0.1 MG PO HS, (Reported) Entered as Reported by: MAXIM CERNA on 07/10/19 1056 Duloxetine HCl (Duloxetine HCl) 60 Mg Capsule.dr 60 MG PO 799,1999, (Reported) Entered as Reported by: MAXIM CERNA on 12/13/18 0911 Folic Acid (Folic Acid) 1 Mg Tablet, 1 MG PO MoTuWeThFrSa, (Reported) Entered as Reported by: MAXIM CERNA on 05/10/18910 Furosemide (Furosemide) 20 Mg Tablet, 20 MG PO DAILY, (Reported) Entered as Reported by: MAXIM CERNA on 05/10/18910 Gabapentin (Gabapentin) 600 Mg Tablet, 600 MG PO TID, (Reported) Entered as Reported by: MAXIM CERNA on 05/10/18910 Glipizide (Glipizide) 5 Mg Tablet, 5 MG PO , (Reported) Entered as Reported by: MAXIM CERNA on 05/10/18910 Glycerin/Propylene Glycol (Advanced Eye Relief Eye Drops) 15 Ml Drops, 1-2 DROPS OU TID PRN for DRY EYES, (Reported) Entered as Reported by: MAXIM CERNA on 07/10/19 105 Hydrocodone Bit/Acetaminophen (HYDROcodone/APAP 10/325 TABLET) 1 Each Tablet, 1 TAB PO Q6H PRN for PAIN-MODERATE (5-7), (Reported) Entered as Reported by: MAXIM CERNA on 07/10/19 1109 Insulin Detemir (Levemir Flextouch) 100 Unit/1 Ml Insuln.pen, 15-20 UNIT SQ HS, (Reported) Entered as Reported by: MAXIM CERNA on 07/10/19 1438 Lisinopril/Hydrochlorothiazide (Lisinopril-Hctz 20-25 mg Tab) 1 Each Tablet, 1 TAB PO DAILY, (Reported) Entered as Reported by: MAXIM CERNA on 07/10/19 105 Loratadine (Loratadine) 10 Mg Tablet, 10 MG PO DAILY, (Reported) Entered as Reported by: MAXIM CERNA on 07/10/19 105 Nabumetone (Nabumetone) 500 Mg Tablet, 500 MG PO BID, (Reported) Entered as Reported by: MAXIM CERNA on 07/10/19 105 Omeprazole (Omeprazole) 20 Mg Capsule.dr, 20 MG PO DAILY, (Reported) Entered as Reported by: MAXIM CERNA on 05/10/18910 Pioglitazone HCl (Pioglitazone HCl) 30 Mg Tablet, 30 MG PO DAILY, (Reported) Entered as Reported by: MAXIM CERNA on 05/10/18 0911 Potassium Chloride (Potassium Chloride) 20 Meq Tablet.er, 20 MEQ PO DAILY, (Reported) Entered as Reported by: MAXIM CERNA on 07/10/19 1109 Potassium Chloride (Potassium Chloride) 10 Meq Tab.er.prt, 10 MEQ PO DAILY Prescribed by: VLAD RUVALCABA on 10/01/20 0006 Prednisone (Prednisone) 20 Mg Tab, 20 MG PO DAILY Prescribed by: BONITA CHERRY on 07/13/19 1308 Pseudoephedrine HCl (Sudogest) 60 Mg Tablet, 60 MG PO Q6H PRN for CONGESTION, (Reported) Entered as Reported by: MAXIM CERNA on 05/10/18 0911 Spironolactone (Spironolactone) 25 Mg Tablet, 25 MG PO DAILY, (Reported) Entered as Reported by: MAXIM CERNA on 05/10/18 0911 Trazodone HCl (Trazodone HCl) 100 Mg Tablet, 100-200 MG PO HS, (Reported) Entered as Reported by: MAXIM CERNA on 07/10/19 1056 Review of Systems Review of Systems Constitutional: no symptoms reported Respiratory: See HPI Cardiovascular: See HPI Gastrointestinal: See HPI Genitourinary: No Symptoms Reported Musculoskeletal: no symptoms reported Skin: no symptoms reported Psychiatric/Neurological: Anxiety Endocrine: No Symptoms Reported Hematologic/Lymphatic: No Symptoms Reported Past Tpfubhn-Dgjedc-Nfcolj Hx Patient Social History Tobacco Use?: Yes Tobacco type used: Cigars Smoking Status: Current Someday Smoker Substance use?: Yes Substance type: Marijuana Additional substance use comme: MARIJUANA IN PAST Alcohol Use?: No Immunizations Up To Date Tetanus Booster (TDap): Unknown Seasonal Allergies Seasonal Allergies: No Past Medical History Surgeries: Yes Section, Tubal Ligation Respiratory: Yes Asthma, Pneumonia Cardiac: Yes (mitral valve prolapse, ) Chronic Edema/Swelling, Hypertension, Palpitations, Valvular Heart Disease Neurological: Yes Neuropathy 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, 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 Genitourinary: Yes (NO DIALYSIS) Renal Failure, UTI-Chronic Gastrointestinal: Yes Gastroesophageal Reflux Musculoskeletal: Yes (MERALGIA PARESTHETICA, DERMATOMYOSITIS;CHRONIC HIP PAIN) Arthritis Endocrine: Yes (OBESITY) Diabetes, Insulin dep HEENT: Yes Cancer: No Psychosocial: Yes Anxiety, Bipolar, Depression Integumentary: No Blood Disorders: No Family Medical History No Pertinent Family Hx Physical Exam Vital Signs Vital Signs - First Documented 08/03/21 23:33 Temp 36.1 Pulse 76 Resp 22 B/P (MAP) 149/79 (102) Pulse Ox 99 O2 Delivery Room Air Capillary Refill : Height, Weight, BMI Height: 5'2.00" Weight: 243lbs. 0.0oz. 110.928351xr; 15.00 BMI Method:Stated General Appearance: No Apparent Distress, WD/WN, Anxious, Obese Neck: Normal Inspection Respiratory: Chest Non Tender, Normal Breath Sounds, No Accessory Muscle Use, No Respiratory Distress Cardiovascular: Regular Rate, Rhythm (WITH OCCASIONAL ECTOPY C/W PAC'S ON MONITOR), No Murmur, Normal Peripheral Pulses Gastrointestinal: Non Tender, Soft Extremity: Normal Capillary Refill, Non Tender, No Calf Tenderness, Pedal Edema (TRACE EDEMA TO ANKLES) Neurologic/Psychiatric: Alert, Oriented x3, No Motor/Sensory Deficits, gig tender II- XII Norm as Tested Skin: Normal Color (PT IS BLACK) Progress/Results/Core Measures Results/Orders Lab Results Laboratory Tests Test 08/03/21 23:45 Range/Units White Blood Count 8.0 4.3-11.0 10^3/uL Red Blood Count 5.37 H 3.80-5.11 10^6/uL Hemoglobin 13.9 11.5-16.0 g/dL Hematocrit 41 35-52 % Mean Corpuscular Volume 77 L 80-99 fL Mean Corpuscular Hemoglobin 26 25-34 pg Mean Corpuscular Hemoglobin Concent 34 32-36 g/dL Red Cell Distribution Width 13.9 10.0-14.5 % Platelet Count 233 130-400 10^3/uL Mean Platelet Volume 9.5 9.0-12.2 fL Immature Granulocyte % (Auto) 0 % Neutrophils (%) (Auto) 51 42-75 % Lymphocytes (%) (Auto) 39 12-44 % Monocytes (%) (Auto) 7 0-12 % Eosinophils (%) (Auto) 2 0-10 % Basophils (%) (Auto) 1 0-10 % Neutrophils # (Auto) 4.1 1.8-7.8 10^3/uL Lymphocytes # (Auto) 3.2 1.0-4.0 10^3/uL Monocytes # (Auto) 0.6 0.0-1.0 10^3/uL Eosinophils # (Auto) 0.2 0.0-0.3 10^3/uL Basophils # (Auto) 0.0 0.0-0.1 10^3/uL Immature Granulocyte # (Auto) 0.0 0.0-0.1 10^3/uL Prothrombin Time 13.9 12.2-14.7 SEC INR Comment 1.0 0.8-1.4 Activated Partial Thromboplast Time 33 24-35 SEC Sodium Level 137 135-145 MMOL/L Potassium Level 3.3 L 3.6-5.0 MMOL/L Chloride Level 99 98-107 MMOL/L Carbon Dioxide Level 25 21-32 MMOL/L Anion Gap 13 5-14 MMOL/L Blood Urea Nitrogen 6 L 7-18 MG/DL Creatinine 0.90 0.60-1.30 MG/DL Estimat Glomerular Filtration Rate 75 BUN/Creatinine Ratio 7 Glucose Level 93 70-105 MG/DL Calcium Level 9.8 8.5-10.1 MG/DL Corrected Calcium 9.8 8.5-10.1 MG/DL Magnesium Level 1.8 1.6-2.4 MG/DL Total Bilirubin 0.4 0.1-1.0 MG/DL Aspartate Amino Transf (AST/SGOT) 16 5-34 U/L Alanine Aminotransferase (ALT/SGPT) 11 0-55 U/L Alkaline Phosphatase 101 40-136 U/L Myoglobin 34.9 10.0-92.0 NG/ML Troponin I < 0.028 <0.028 NG/ML B-Type Natriuretic Peptide 23.2 <100.0 PG/ML Total Protein 7.8 6.4-8.2 GM/DL Albumin 4.0 3.2-4.5 GM/DL TSH [place] Testing 2.72 0.35-4.94 UIU/ML My Orders Orders - VLAD RUVALCABA DO Cbc With Automated Diff (08/03/21 23:34) Magnesium (08/03/21 23:34) Chest 1 View, Ap/Pa Only (08/03/21 23:34) Comprehensive Metabolic Panel (08/03/21 23:34) Myoglobin Serum (08/03/21 23:34) Protime With Inr (08/03/21 23:34) Partial Thromboplastin Time (08/03/21 23:34) O2 (08/03/21 23:34) Monitor-Rhythm Ecg Trace Only (08/03/21 23:34) Lipid Panel (08/04/21 06:00) Ed Iv/Invasive Line Start (08/03/21 23:34) Troponin I [place] (08/03/21 23:34) Ekg Tracing (08/03/21 23:43) Bnp [place] (08/03/21 23:43) Thyroid Analyzer (08/03/21 23:43) Ekg Tracing (08/04/21 00:46) Vital Signs/I&O 08/03/21 23:33 Temp 36.1 Pulse 76 Resp 22 B/P (MAP) 149/79 (102) Pulse Ox 99 O2 Delivery Room Air Progress Progress Note : Progress Note PT REMAINS IN NORMAL SINUS RHYTHM WITH FREQUENT PAC'S, WITH RATE IN 70'S FOR ENTIRE ER STAY O2 SAT 100% ON ROOM AIR BP STABLE PT HAD NO COMPLAINT OF CHEST PAIN DURING ENTIRE ER STAY PT RESTED QUIETLY FOR REMAINDER OF ER STAY Initial ECG Impression Date: Aug 03, 2021 Initial ECG Impression Time: 23:45 Initial ECG Rate: 76 Initial ECG Rhythm: Normal Sinus EKG : EKG Time: 00:45 Rate: 74 Rhythm: Normal Sinus (WITH PAC'S) Diagnostic Imaging Comments CXR--NO ACUTE PROCESS, PENDING RADIOLOGIST REVIEW Reviewed: Reviewed by Me Departure Impression Primary Impression: Palpitations Additional Impression: PAC (premature atrial contraction) Disposition: 01 HOME, SELF-CARE Condition: Stable Departure-Patient Inst. Decision time for Depature: 00:47 Referrals: ROSELIA BOYER APRN (PCP) Primary Care Physician KARSTEN MENDOZA MD FACP FACC CCDS Patient Instructions: Palpitations ED Add. Discharge Instructions: HOME, REST CONTINUE YOUR REGULAR MEDICATIONS PRESCRIBED HAVE HEART MONITOR PLACED THIS WEEK ARRANGED FOLLOW UP WITH DR. MENDOZA SCHEDULED VLAD RUVALCABA DO Aug 03, 2021 23:46
[2021-08-03 23:53] LABS: BASOPHILS % (AUTO) 1 % (0-10); EOSINOPHILS # (AUTO) 0.2 10^3/uL (0.0-0.3); EOSINOPHILS % (AUTO) 2 % (0-10); HEMATOCRIT 41 % (35-52); HEMOGLOBIN 13.9 g/dL (11.5-16.0); LYMPHOCYTES # (AUTO) 3.2 10^3/uL (1.0-4.0); LYMPHOCYTES % (AUTO) 39 % (12-44); MEAN CORPUSCULAR HEMOGLOBIN 26 pg (25-34); MEAN CORPUSCULAR HGB CONC 34 g/dL (32-36); MEAN CORPUSCULAR VOLUME 77 fL (80-99); MEAN PLATELET VOLUME 9.5 fL (9.0-12.2); MONOCYTES # (AUTO) 0.6 10^3/uL (0.0-1.0); MONOCYTES % (AUTO) 7 % (0-12); NEUTROPHILS # (AUTO) 4.1 10^3/uL (1.8-7.8); NEUTROPHILS % (AUTO) 51 % (42-75); PLATELET COUNT 233 10^3/uL (130-400)
[2021-08-04 00:07] LABS: PROTHROMBIN TIME PATIENT 13.9 SEC (12.2-14.7)
[2021-08-04 00:08] LABS: POTASSIUM 3.3 MMOL/L (3.6-5.0)
[2021-08-04 00:09] LABS: CALCIUM 9.8 MG/DL (8.5-10.1)
[2021-08-04 00:10] LABS: TOTAL PROTEIN 7.8 GM/DL (6.4-8.2)
[2021-08-04 00:12] LABS: BILIRUBIN,TOTAL 0.4 MG/DL (0.1-1.0)
[2021-08-04 00:14] LABS: CREATININE SERUM 0.9 MG/DL (0.60-1.30)
[2021-08-04 00:17] LABS: MAGNESIUM 1.8 MG/DL (1.6-2.4)
[2021-08-04 00:37] LABS: TSH (THYROID ANALYZER) 2.72 UIU/ML (0.35-4.94)
[2021-08-04 01:04] VITALS: BP 124/79
--- NOTE | 2021-08-04 07:03 | Diagnostic Imaging Report ---
INDICATION: Chest pain. Comparison with 09/30/2020. FINDINGS: Portable chest. The lungs are well-aerated and clear. Heart is not enlarged. No pulmonary edema. No pneumothorax or pleural effusion. No bony abnormalities. IMPRESSION: Normal portable chest. Dictated by: Dictated on workstation # [id number]
== END 2021-08-04 01:20 | disposition home or self-care (01) ==
LOC: EDUNIT# 23:28 → ER 23:30
DX: R00.2 Palpitations (principal); I49.1 Atrial premature depolarization; E66.9 Obesity, unspecified; F17.290 Nicotine dependence, other tobacco product, uncomplicated; Z68.1 Body mass index [BMI] 19.9 or less, adult
CPT/HCPCS: 36415; 71045; 80053; 83735; 83874; 83880; 84443; 84484; 85025; 85610; 85730; 93005; 93041

== ENCOUNTER 2021-08-05 09:00 | Outpatient (RCR) | payer MEDICARE, MEDICAID | END 2021-08-26 | disposition home or self-care (01) | LOC: CARD 09:00 | PROVIDERS: ATTEND Nurse Practitioner Family | DX: R00.2 Palpitations (principal) ==

== ENCOUNTER 2021-10-26 09:44 | Emergency (ER) | payer MEDICARE, MEDICAID ==
[~2021-10-26] VITALS: Ht 157 cm; Wt 95.0 kg
[2021-10-26 09:44] VITALS: BP 138/83
--- NOTE | 2021-10-26 09:50 | ED GI ---
General Chief Complaint: Abdominal/GI Problems Stated Complaint: VOMITING History of Present Illness Date Seen by Provider: October 26, 2021 Time Seen by Provider: 09:50 Initial Comments 56-year-old female is here with complaints of epigastric pain which is burning in nature after she had a barbecue chicken dinner last night increasing in intensity. Denies diarrhea, fever, no sick contacts. Patient has associated nausea. Allergies and Home Medications Allergies Coded Allergies: latex (Verified Allergy, Unknown, 02/03/18) sertraline (Verified Allergy, Unknown, 02/03/18) aspirin (Unverified Adverse Reaction, Severe, 11/12/10) Patient Home Medication List Home Medication List Reviewed: Yes Albuterol Sulfate (Proair Hfa) 1 Puff Puff, 2 PUFF IH Q4H PRN for SHORTNESS OF BREATH, (Reported) Entered as Reported by: MAXIM CERNA on 07/10/19 1056 Brexpiprazole (Rexulti) 2 Mg Tablet, 2 MG PO DAILY, (Reported) Entered as Reported by: MAXIM CERNA on 07/10/19 1056 Cefdinir (Cefdinir) 300 Mg Capsule, 300 MG PO BID Prescribed by: BONITA CHERRY on 07/13/19 1308 Clonidine HCl (Clonidine HCl) 0.1 Mg Tablet, 0.1 MG PO HS, (Reported) Entered as Reported by: MAXIM CERNA on 07/10/19 1056 Duloxetine HCl (Duloxetine HCl) 60 Mg Capsule.dr, 60 MG PO , (Reported) Entered as Reported by: MAXIM CERNA on 05/10/18 09 Folic Acid (Folic Acid) 1 Mg Tablet, 1 MG PO MoTuWeThFrSa, (Reported) Entered as Reported by: MAXIM CERNA on 05/10/18 09 Furosemide (Furosemide) 20 Mg Tablet, 20 MG PO DAILY, (Reported) Entered as Reported by: MAXIM CERNA on 05/10/18 09 Gabapentin (Gabapentin) 600 Mg Tablet, 600 MG PO TID, (Reported) Entered as Reported by: MAXIM CERNA on 05/10/18 09 Glipizide (Glipizide) 5 Mg Tablet, 5 MG PO , (Reported) Entered as Reported by: MAXIM CERNA on 05/10/18 0911 Glycerin/Propylene Glycol (Advanced Eye Relief Eye Drops) 15 Ml Drops, 1-2 DROPS OU TID PRN for DRY EYES, (Reported) Entered as Reported by: MAXIM CERNA on 07/10/19 1056 Hydrocodone Bit/Acetaminophen (HYDROcodone/APAP 10/325 TABLET) 1 Each Tablet, 1 TAB PO Q6H PRN for PAIN-MODERATE (5-7), (Reported) Entered as Reported by: MAXIM CERNA on 07/10/19 1109 Insulin Detemir (Levemir Flextouch) 100 Unit/1 Ml Insuln.pen, 15-20 UNIT SQ HS, (Reported) Entered as Reported by: MAXIM CERNA on 07/10/19 1438 Lisinopril/Hydrochlorothiazide (Lisinopril-Hctz 20-25 mg Tab) 1 Each Tablet, 1 TAB PO DAILY, (Reported) Entered as Reported by: MAXIM CERNA on 07/10/19 105 Loratadine (Loratadine) 10 Mg Tablet, 10 MG PO DAILY, (Reported) Entered as Reported by: MAXIM CERNA on 07/10/19 105 Nabumetone (Nabumetone) 500 Mg Tablet, 500 MG PO BID, (Reported) Entered as Reported by: MAXIM CERNA on 07/10/19 105 Omeprazole (Omeprazole) 20 Mg Capsule.dr, 20 MG PO DAILY, (Reported) Entered as Reported by: MAXIM CERNA on 05/10/18 09 Pioglitazone HCl (Pioglitazone HCl) 30 Mg Tablet, 30 MG PO DAILY, (Reported) Entered as Reported by: MAXIM CERNA on 05/10/18 09 Potassium Chloride (Potassium Chloride) 20 Meq Tablet.er, 20 MEQ PO DAILY, (Reported) Entered as Reported by: MAXIM CERNA on 07/10/19 1109 Potassium Chloride (Potassium Chloride) 10 Meq Tab.er.prt, 10 MEQ PO DAILY Prescribed by: VLAD RUVALCABA on 10/01/20 0006 Prednisone (Prednisone) 20 Mg Tab, 20 MG PO DAILY Prescribed by: BONITA CHERRY on 07/13/19 1308 Pseudoephedrine HCl (Sudogest) 60 Mg Tablet, 60 MG PO Q6H PRN for CONGESTION, (Reported) Entered as Reported by: MAXIM CERNA on 05/10/18 0911 Spironolactone (Spironolactone) 25 Mg Tablet, 25 MG PO DAILY, (Reported) Entered as Reported by: MAXIM CERNA on 05/10/18 0911 Trazodone HCl (Trazodone HCl) 100 Mg Tablet, 100-200 MG PO HS, (Reported) Entered as Reported by: MAXIM CERNA on 07/10/19 1056 Review of Systems Review of Systems Constitutional: no symptoms reported EENTM: No Symptoms Reported Respiratory: No Symptoms Reported Cardiovascular: No Symptoms Reported Gastrointestinal: Abdominal Pain, Nausea, Poor Appetite Genitourinary: No Symptoms Reported Musculoskeletal: no symptoms reported Psychiatric/Neurological: No Symptoms Reported Endocrine: No Symptoms Reported Hematologic/Lymphatic: No Symptoms Reported Past Kxbxrvg-Zqtopx-Lnqlws Hx Immunizations Up To Date Tetanus Booster (TDap): Unknown Seasonal Allergies Seasonal Allergies: No Past Medical History Surgeries: Yes Section, Tubal Ligation Respiratory: Yes Asthma, Pneumonia Cardiac: Yes (mitral valve prolapse, ) Chronic Edema/Swelling, Hypertension, Palpitations, Valvular Heart Disease Neurological: Yes Neuropathy 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, Menopausal Genitourinary: Yes (NO DIALYSIS) Renal Failure, UTI-Chronic Gastrointestinal: Yes Gastroesophageal Reflux Musculoskeletal: Yes (MERALGIA PARESTHETICA, DERMATOMYOSITIS;CHRONIC HIP PAIN) Arthritis Endocrine: Yes (OBESITY) Diabetes, Insulin dep HEENT: Yes Cancer: No Psychosocial: Yes Anxiety, Bipolar, Depression Integumentary: No Blood Disorders: No Family Medical History No Pertinent Family Hx Physical Exam Vital Signs Vital Signs - First Documented 10/26/21 09:44 Temp 36.3 Pulse 64 Resp 16 B/P (MAP) 138/83 (101) Pulse Ox 100 O2 Delivery Room Air Capillary Refill : Height/Weight/BMI Height: 5'2.00" Weight: 243lbs. 0.0oz. 110.834885hq; 44.00 BMI Method:Stated General Appearance: mild distress HEENT: PERRL/EOMI Neck: full range of motion Respiratory: chest non-tender, lungs clear, normal breath sounds Cardiovascular: normal peripheral pulses, regular rate, rhythm Gastrointestinal: soft, tenderness (epigastrc tenderness) Extremities: normal range of motion Back: no CVA tenderness Neurologic/Psychiatric: no motor/sensory deficits, alert, normal mood/affect, oriented x 3 Skin: normal color Progress/Results/Core Measures Results/Orders Lab Results Laboratory Tests Test 10/26/21 09:40 10/26/21 11:24 Range/Units White Blood Count 7.4 4.3-11.0 10^3/uL Red Blood Count 5.37 H 3.80-5.11 10^6/uL Hemoglobin 13.5 11.5-16.0 g/dL Hematocrit 41 35-52 % Mean Corpuscular Volume 76 L 80-99 fL Mean Corpuscular Hemoglobin 25 25-34 pg Mean Corpuscular Hemoglobin Concent 33 32-36 g/dL Red Cell Distribution Width 14.7 H 10.0-14.5 % Platelet Count 218 130-400 10^3/uL Mean Platelet Volume 9.6 9.0-12.2 fL Immature Granulocyte % (Auto) 0 % Neutrophils (%) (Auto) 62 42-75 % Lymphocytes (%) (Auto) 30 12-44 % Monocytes (%) (Auto) 6 0-12 % Eosinophils (%) (Auto) 1 0-10 % Basophils (%) (Auto) 0 0-10 % Neutrophils # (Auto) 4.6 1.8-7.8 10^3/uL Lymphocytes # (Auto) 2.2 1.0-4.0 10^3/uL Monocytes # (Auto) 0.4 0.0-1.0 10^3/uL Eosinophils # (Auto) 0.1 0.0-0.3 10^3/uL Basophils # (Auto) 0.0 0.0-0.1 10^3/uL Immature Granulocyte # (Auto) 0.0 0.0-0.1 10^3/uL Prothrombin Time 13.7 12.2-14.7 SEC INR Comment 1.0 0.8-1.4 Activated Partial Thromboplast Time 28 24-35 SEC D-Dimer 1.56 H 0.00-0.49 UG/ML Sodium Level 141 135-145 MMOL/L Potassium Level 3.1 L 3.6-5.0 MMOL/L Chloride Level 111 H 98-107 MMOL/L Carbon Dioxide Level 19 L 21-32 MMOL/L Anion Gap 11 5-14 MMOL/L Blood Urea Nitrogen 11 7-18 MG/DL Creatinine 0.74 0.60-1.30 MG/DL Estimat Glomerular Filtration Rate 95 BUN/Creatinine Ratio 15 Glucose Level 180 H 70-105 MG/DL Calcium Level 7.5 L 8.5-10.1 MG/DL Corrected Calcium 8.4 L 8.5-10.1 MG/DL Magnesium Level 1.4 L 1.6-2.4 MG/DL Total Bilirubin 0.3 0.1-1.0 MG/DL Aspartate Amino Transf (AST/SGOT) 12 5-34 U/L Alanine Aminotransferase (ALT/SGPT) 13 0-55 U/L Alkaline Phosphatase 74 40-136 U/L Troponin I < 0.028 <0.028 NG/ML B-Type Natriuretic Peptide < 10.0 <100.0 PG/ML Total Protein 6.0 L 6.4-8.2 GM/DL Albumin 2.9 L 3.2-4.5 GM/DL Lipase 52 8-78 U/L Serum Alcohol < 10 <10 MG/DL Urine Color YELLOW Urine Clarity CLEAR Urine pH 7.0 5-9 Urine Specific [place] 1.010 L 1.016-1.022 Urine Protein NEGATIVE NEGATIVE Urine Glucose (UA) NEGATIVE NEGATIVE Urine Ketones TRACE H NEGATIVE Urine Nitrite NEGATIVE NEGATIVE Urine Bilirubin NEGATIVE NEGATIVE Urine Urobilinogen 0.2 < = 1.0 MG/DL Urine Leukocyte Esterase TRACE H NEGATIVE Urine RBC (Auto) NEGATIVE NEGATIVE Urine RBC NONE /HPF Urine WBC 2-5 /HPF Urine Squamous Epithelial Cells 2-5 /HPF Urine Crystals NONE /LPF Urine Bacteria TRACE /HPF Urine Casts NONE /LPF Urine Mucus NEGATIVE /LPF Urine Culture Indicated NO Urine Opiates Screen NEGATIVE NEGATIVE Urine Oxycodone Screen NEGATIVE NEGATIVE Urine Methadone Screen NEGATIVE NEGATIVE Urine Propoxyphene Screen NEGATIVE NEGATIVE Urine Barbiturates Screen NEGATIVE NEGATIVE Ur Tricyclic Antidepressants Screen NEGATIVE NEGATIVE Urine Phencyclidine Screen NEGATIVE NEGATIVE Urine Amphetamines Screen POSITIVE H NEGATIVE Urine Methamphetamines Screen NEGATIVE NEGATIVE Urine Benzodiazepines Screen NEGATIVE NEGATIVE Urine Cocaine Screen NEGATIVE NEGATIVE Urine Cannabinoids Screen POSITIVE H NEGATIVE My Orders Orders - ELISSA ULLOA MD Ekg Tracing (10/26/21 09:50) Alcohol (10/26/21 09:57) Bnp [place] (10/26/21 09:57) Cbc With Automated Diff (10/26/21 09:57) Comprehensive Metabolic Panel (10/26/21 09:57) Fibrin Degradation Products (10/26/21 09:57) Drug Screen Stat (Urine) (10/26/21 09:57) Lipase (10/26/21 09:57) Magnesium (10/26/21 09:57) Protime With Inr (10/26/21 09:57) Partial Thromboplastin Time (10/26/21 09:57) Ua Culture If Indicated (10/26/21 09:57) Troponin I [place] (10/26/21 09:57) Chest 1 View, Ap/Pa Only (10/26/21 09:57) Ct Abdomen/Pelvis W (10/26/21 09:57) Ondansetron Injection (Zofran Injectio (10/26/21 10:00) Famotidine Injection (Pepcid Injection) (10/26/21 09:57) Ed Iv/Invasive Line Start (10/26/21 09:59) Ns Iv 1000 Ml (Sodium Chloride 0.9%) (10/26/21 10:00) Morphine Injection (Morphine Injection (10/26/21 10:14) Iohexol Injection (Omnipaque 350 Mg/Ml 1 (10/26/21 11:15) Received Contrast (Hold Metformin- Contr (10/26/21 11:15) Sodium Chloride Flush (Catheter Flush Sy (10/26/21 11:15) Ns (Ivpb) (Sodium Chloride 0.9% Ivpb Bag (10/26/21 11:15) Potassium Cl 10meq/50ml Ivpb (Kcl 10 Meq (10/26/21 11:13) Magnesium 2 Gm/50 Ml Ivpb (Magnesium 2 G (10/26/21 11:14) Ct Angio Chest W (10/26/21 11:16) Iohexol Injection (Omnipaque 350 Mg/Ml 1 (10/26/21 11:45) Received Contrast (Hold Metformin- Contr (10/26/21 11:45) Ns (Ivpb) (Sodium Chloride 0.9% Ivpb Bag (10/26/21 11:45) Sodium Chloride Flush (Catheter Flush Sy (10/26/21 11:45) Ed Iv/Invasive Line Start (10/26/21 12:09) Ns Iv 1000 Ml (Sodium Chloride 0.9%) (10/26/21 12:09) Medications Given in ED Current Medications Medications Dose Ordered Sig/Edel Route Start Time Stop Time Status Last Admin Dose Admin Iohexol 100 ml ONCE ONCE IV 10/26/21 11:15 10/26/21 11:16 DC 10/26/21 11:13 100 ML Iohexol 100 ml ONCE ONCE IV 10/26/21 11:45 10/26/21 11:46 DC 10/26/21 11:51 79 ML Ondansetron HCl 4 mg ONCE ONCE IVP 10/26/21 10:00 10/26/21 10:01 DC 10/26/21 10:12 4 MG Sodium Chloride 10 ml NEEDED PRN IV 10/26/21 11:15 10/26/21 11:51 10 ML Sodium Chloride 100 ml ONCE ONCE IV 10/26/21 11:15 10/26/21 11:16 DC 10/26/21 11:13 80 ML Sodium Chloride 100 ml ONCE ONCE IV 10/26/21 11:45 10/26/21 11:46 DC 10/26/21 11:51 80 ML Vital Signs/I&O 10/26/21 09:44 Temp 36.3 Pulse 64 Resp 16 B/P (MAP) 138/83 (101) Pulse Ox 100 O2 Delivery Room Air Progress Progress Note : Progress Note 1. ACUTE GASTRITIS: - CT ABD : gastritis - CXR: unremarkable except pulm vasc congestion - LAbs unremarkable - Pepcid/ zofran/ protonix/ Maalox - Prescriptions for pepcid, and OTC maalox -The patient was seen in the ED, and treated appropriately to presentation at a specific point in time. Patient is informed that there is a possibility that disease and illness can evolve and change in acuity rapidly or slowly after patient is discharged from the ER. Precautionary advice given to the patient for immediate return to ER if symptoms worsen or do not resolve, and to seek emergency care sooner rather than later. Pt also advised on the importance of PCP follow up and compliance with management and follow up plan with PCP and/or specialist, as this is part of the management plan. Pt verbally expressed understanding. 2. HYPOMAGNESEMIA/ HYPOKALEMIA: - s. K is 3.1 and s. Mg is 1.4 - Potassium 20mEq iv and Mag sulfate 2gm iv STAT - Follow up with PCP within 3 to 5 days for CMP check 3. ELEVATED D-dimer: - d-dimer is 1.56 - CTA chest : no PE Diagnostic Imaging Diagonstic Imaging: Xray, CT Plain Films/CT/US/NM/MRI: chest, abdomen Comments [facility] [employer] [place], [place] NAME: NATHAN MENDOZA [facility] REC#: [id number] PT STATUS: REG ER : 1965 PHYSICIAN: ELISSA ULLOA MD ADMIT DATE: 10/26/21/ER Signed Date of Exam:10/26/21 CT ABDOMEN/PELVIS W EXAMINATION: CT abdomen and pelvis with intravenous contrast. TECHNIQUE: Multiple contiguous axial images were obtained through the abdomen and pelvis after the uneventful administration of intravenous contrast. All CT scans use one or more of the following dose optimizing techniques: automated exposure control, MA and/or KvP adjustment based on patient size and exam type or iterative reconstruction. HISTORY: Abdominal pain. Indigestion. COMPARISON: None available. FINDINGS: The heart is normal. The included lung bases are clear. There is hepatic steatosis with focal fatty sparing along the gallbladder fossa. The gallbladder is unremarkable. The spleen, pancreas, adrenal glands, and kidneys have a normal appearance. There is no pathologically enlarged mesenteric or retroperitoneal adenopathy. There is mild wall thickening in the distal stomach/proximal duodenum. The bowel loops are nondilated. There is no free fluid or free air. No acute osseous abnormalities. Ureters and bladder are grossly normal. There is no free air, loculated collection, or adenopathy in the pelvis. IMPRESSION: 1. Mild wall thickening in the distal stomach/proximal duodenum which can be seen with gastritis/duodenitis. No evidence of penetrating ulcer. No bowel obstruction, free fluid, or free air. 2. Hepatic steatosis. Dictated by: Dictated on workstation # [id number] Dict: 10/26/21 1123 Trans: 10/26/21 1136 [id number] Interpreted by: VIOLETA TAYLOR DO Electronically signed by: VIOLETA TAYLOR DO 10/26/21 1136 [facility] [employer] [place] NAME: NATHAN MENDOZA [facility] REC#: [id number] PT STATUS: REG ER : 1965 PHYSICIAN: ELISSA ULLOA MD ADMIT DATE: 10/26/21/ER Signed Date of Exam:10/26/21 CHEST 1 VIEW, AP/PA ONLY EXAMINATION: Chest, 1 view. HISTORY: Epigastric pain. COMPARISON: 08/04/2021. FINDINGS: The lung volumes are normal. No focal consolidation is seen. No large pleural effusion or pneumothorax is seen. The cardiomediastinal silhouette is stable in size with prominence of the central pulmonary vasculature. There is calcified aortic atherosclerotic plaque. No acute osseous abnormality is seen. IMPRESSION: Mild central pulmonary vascular congestion. Dictated by: Dictated on workstation # [id number] Dict: 10/26/21 1040 Trans: 10/26/21 1054 [id number] Interpreted by: VIOLETA TAYLOR DO Electronically signed by: VIOLETA TAYLOR DO 10/26/21 [address] [place], [place] NAME: NATHAN MENDOZA [facility] REC#: [id number] PT STATUS: REG ER : 1965 PHYSICIAN: ELISSA ULLOA MD ADMIT DATE: 10/26/21/ER Draft Date of Exam:10/26/21 CT ANGIO CHEST W EXAMINATION: CT angiography of the chest. TECHNIQUE: Contrast-enhanced thin section helical images were obtained through the chest with intravenous contrast timed for the optimal opacification of the arterial structures per CTA protocol. Post-processing, reconstructions, and interpretation of angiographic images of the vessels were performed. 3D MIP reconstructions were performed and reviewed. All CT scans use one or more of the following dose optimizing techniques: Automated exposure control, MA and/or KvP adjustment based on a patient size and exam type, or iterative reconstruction. HISTORY: Chest pain. COMPARISON: None available. FINDINGS: There is no pulmonary embolism. There is no edema or pneumonia. No pleural effusion. No pneumothorax. No suspicious nodules. There is no axillary or supraclavicular lymphadenopathy. There is no mediastinal lymphadenopathy. Heart size is normal. There are no coronary artery calcifications. No pericardial effusion. Aorta is normal in caliber. Limited views of the upper abdomen are unremarkable. There are no suspicious osseous lesions. IMPRESSION: 1. No pulmonary embolism, clear lungs. Dictated on workstation # [id number] Dict: 10/26/21 1202 Trans: 10/26/21 1214 [id number] Interpreted by: VELVET ARREOLA MD Electronically signed by: Departure Impression Primary Impression: Acute gastritis Qualified Codes: K29.00 - Acute gastritis without bleeding Additional Impressions: Hypomagnesemia Hypokalemia Elevated d-dimer Disposition: HOME, SELF-CARE Condition: Stable Departure-Patient Inst. Referrals: [facility] (PCP) Primary Care Physician ROSELIA BOYER APRN (Family) Primary Care Physician Patient Instructions: Gastritis, Low Magnesium Level (DC), Hypokalemia, High Potassium Diet Add. Discharge Instructions: - Prescriptions for pepcid, zofran, protonix, and OTC maalox - oral potassium and magnesium for 3 days and follow up with PCP in 3 to 5 days for lab check - Return to ER if symptoms not improving - - Diet restrictions for gastritis discussed All discharge instructions reviewed with patient and/or family. Voiced understanding. Scripts Ondansetron (Ondansetron Odt) 4 Mg Tab.rapdis 4 MG PO Q6H for Nausea/Vomiting, #14 TAB Prov: ELISSA ULLOA MD 10/26/21 Magnesium Oxide (Magnesium) 250 Mg Tablet 250 MG PO DAILY for 3 Days, #3 TAB Prov: ELISSA ULLOA MD 10/26/21 Potassium Chloride (Potassium Chloride) 20 Meq Tablet.er 40 MEQ PO DAILY for 3 Days, #3 TAB Prov: ELISSA ULLOA MD 10/26/21 Pantoprazole Sodium (Protonix) 40 Mg Granpkt.dr 40 MG PO DAILY for 14 Days, #14 TAB Prov: ELISSA ULLOA MD 10/26/21 Famotidine (Pepcid) 20 Mg Tablet 20 MG PO BID for 14 Days, #28 TAB Prov: ELISSA ULLOA MD 10/26/21 Work/School Note: Work Release Form Date Seen in the Emergency Department: October 26, 2021 Return to Work: Oct 29, 2021 Restrictions: No Restrictions ELISSA ULLOA MD October 26, 2021 09:50
[2021-10-26] MEDS ORDERED: FAMOTIDINE 20MG/2ML IV (PEPCID) IV STA (09:57)
[2021-10-26] MEDS ORDERED: NS IV 1000 ML 1,000 ML IV SCH (10:00)
[2021-10-26] MEDS ORDERED: ONDANSETRON 4 MG/2 ML (SDV) Z0FRAN IVP ONE (10:00)
[2021-10-26 10:06] LABS: BASOPHILS % (AUTO) 0 % (0-10); EOSINOPHILS # (AUTO) 0.1 10^3/uL (0.0-0.3); EOSINOPHILS % (AUTO) 1 % (0-10); HEMATOCRIT 41 % (35-52); HEMOGLOBIN 13.5 g/dL (11.5-16.0); LYMPHOCYTES # (AUTO) 2.2 10^3/uL (1.0-4.0); LYMPHOCYTES % (AUTO) 30 % (12-44); MEAN CORPUSCULAR HEMOGLOBIN 25 pg (25-34); MEAN CORPUSCULAR HGB CONC 33 g/dL (32-36); MEAN CORPUSCULAR VOLUME 76 fL (80-99); MEAN PLATELET VOLUME 9.6 fL (9.0-12.2); MONOCYTES # (AUTO) 0.4 10^3/uL (0.0-1.0); MONOCYTES % (AUTO) 6 % (0-12); NEUTROPHILS # (AUTO) 4.6 10^3/uL (1.8-7.8); NEUTROPHILS % (AUTO) 62 % (42-75); PLATELET COUNT 218 10^3/uL (130-400); WHITE BLOOD COUNT 7.4 10^3/uL (4.3-11.0)
[2021-10-26] MEDS ORDERED: morphine INJ 10 MG/ML 1ML (SYR OR VIAL) IVP STA (10:14)
[2021-10-26 10:15] LABS: ALBUMIN 2.9 GM/DL (3.2-4.5); CHLORIDE 111 MMOL/L (98-107); POTASSIUM 3.1 MMOL/L (3.6-5.0); SODIUM 141 MMOL/L (135-145)
[2021-10-26 10:16] LABS: CALCIUM 7.5 MG/DL (8.5-10.1)
[2021-10-26 10:17] LABS: GLUCOSE 180 MG/DL (70-105)
[2021-10-26 10:18] LABS: CARBON DIOXIDE 19 MMOL/L (21-32)
[2021-10-26 10:19] LABS: BILIRUBIN,TOTAL 0.3 MG/DL (0.1-1.0); FIBRIN DEGRADATION PRODUCTS 1.56 UG/ML (0.00-0.49); PROTHROMBIN TIME PATIENT 13.7 SEC (12.2-14.7)
[2021-10-26 10:21] LABS: ALKALINE PHOSPHATASE 74 U/L (40-136); CREATININE SERUM 0.74 MG/DL (0.60-1.30); GFR ESTIMATED 95
[2021-10-26 10:22] LABS: BUN/CREATININE RATIO 15
[2021-10-26 10:24] LABS: ALANINE AMINOTRANSFERASE 13 U/L (0-55); MAGNESIUM 1.4 MG/DL (1.6-2.4)
[2021-10-26 10:25] LABS: LIPASE 52 U/L (8-78)
--- NOTE | 2021-10-26 10:44 | Diagnostic Imaging Report ---
EXAMINATION: Chest, 1 view. HISTORY: Epigastric pain. COMPARISON: 08/04/2021. FINDINGS: The lung volumes are normal. No focal consolidation is seen. No large pleural effusion or pneumothorax is seen. The cardiomediastinal silhouette is stable in size with prominence of the central pulmonary vasculature. There is calcified aortic atherosclerotic plaque. No acute osseous abnormality is seen. IMPRESSION: Mild central pulmonary vascular congestion. Dictated by: Dictated on workstation # [id number]
[2021-10-26] MEDS ORDERED: POTASSIUM CL 10MEQ/50ML IVPB 50 ML IV STA (11:13)
[2021-10-26] MEDS: CATHETER FLUSH 10 ML SYR IV PRN ×2 (11:13→11:51)
[2021-10-26] MEDS ORDERED: MAGNESIUM 2 GM/50 ML IVPB 50 ML IV STA (11:14)
[2021-10-26] MEDS ORDERED: NS 100 ML (IVPB) BAG IV ONE ×2 (11:15→11:45)
[2021-10-26] MEDS ORDERED: HOLD METFORMIN - RECEIVED CONTRAST 20 ML VIAL IV SCH ×2 (11:15→11:45)
[2021-10-26] MEDS ORDERED: IOHEXOL 350 MG/ML 100 ML (OMNIPAQUE 350) VIAL IV ONE ×2 (11:15→11:45)
[2021-10-26 11:35] LABS: BILIRUBIN,URINE NEGATIVE (NEGATIVE); CLARITY,URINE CLEAR; COLOR,URINE YELLOW; GLUCOSE, URINE (UA) NEGATIVE (NEGATIVE); KETONES,URINE TRACE (NEGATIVE); LEUKOCYTE ESTERASE ,URINE TRACE (NEGATIVE); NITRITE,URINE NEGATIVE (NEGATIVE); PROTEIN,URINE NEGATIVE (NEGATIVE)
--- NOTE | 2021-10-26 11:36 | Diagnostic Imaging Report ---
EXAMINATION: CT abdomen and pelvis with intravenous contrast. TECHNIQUE: Multiple contiguous axial images were obtained through the abdomen and pelvis after the uneventful administration of intravenous contrast. All CT scans use one or more of the following dose optimizing techniques: automated exposure control, MA and/or KvP adjustment based on patient size and exam type or iterative reconstruction. HISTORY: Abdominal pain. Indigestion. COMPARISON: None available. FINDINGS: The heart is normal. The included lung bases are clear. There is hepatic steatosis with focal fatty sparing along the gallbladder fossa. The gallbladder is unremarkable. The spleen, pancreas, adrenal glands, and kidneys have a normal appearance. There is no pathologically enlarged mesenteric or retroperitoneal adenopathy. There is mild wall thickening in the distal stomach/proximal duodenum. The bowel loops are nondilated. There is no free fluid or free air. No acute osseous abnormalities. Ureters and bladder are grossly normal. There is no free air, loculated collection, or adenopathy in the pelvis. IMPRESSION: 1. Mild wall thickening in the distal stomach/proximal duodenum which can be seen with gastritis/duodenitis. No evidence of penetrating ulcer. No bowel obstruction, free fluid, or free air. 2. Hepatic steatosis. Dictated by: Dictated on workstation # [id number]
[2021-10-26] MEDS ORDERED: CATHETER FLUSH 10 ML SYR IV PRN (11:45)
[2021-10-26 11:58] LABS: AMPHETAMINE SCREEN, URINE POSITIVE (NEGATIVE); BARBITURATE SCREEN URINE NEGATIVE (NEGATIVE); BENZODIAZEPINES SCREEN URINE NEGATIVE (NEGATIVE); CANNABINOID SCREEN, URINE POSITIVE (NEGATIVE); COCAINE SCREEN URINE NEGATIVE (NEGATIVE); METHADONE STAT NEGATIVE (NEGATIVE); OPIATE SCREEN URINE NEGATIVE (NEGATIVE); OXYCODONE STAT NEGATIVE (NEGATIVE); PROPOXYPHENE STAT NEGATIVE (NEGATIVE); TRICYCLIC ANTIDEPRESSANTS SCRE NEGATIVE (NEGATIVE)
[2021-10-26 12:00] LABS: BACTERIA,URINE TRACE /HPF
[2021-10-26] MEDS ORDERED: NS IV 1000 ML 1,000 ML IV STA (12:09)
--- NOTE | 2021-10-26 12:14 | Diagnostic Imaging Report ---
EXAMINATION: CT angiography of the chest. TECHNIQUE: Contrast-enhanced thin section helical images were obtained through the chest with intravenous contrast timed for the optimal opacification of the arterial structures per CTA protocol. Post-processing, reconstructions, and interpretation of angiographic images of the vessels were performed. 3D MIP reconstructions were performed and reviewed. All CT scans use one or more of the following dose optimizing techniques: Automated exposure control, MA and/or KvP adjustment based on a patient size and exam type, or iterative reconstruction. HISTORY: Chest pain. COMPARISON: None available. FINDINGS: There is no pulmonary embolism. There is no edema or pneumonia. No pleural effusion. No pneumothorax. No suspicious nodules. There is no axillary or supraclavicular lymphadenopathy. There is no mediastinal lymphadenopathy. Heart size is normal. There are no coronary artery calcifications. No pericardial effusion. Aorta is normal in caliber. Limited views of the upper abdomen are unremarkable. There are no suspicious osseous lesions. IMPRESSION: 1. No pulmonary embolism, clear lungs. Dictated by: Dictated on workstation # [id number]
[2021-10-26] MEDS ORDERED: ANTACID SUSP 30 ML UDC (MYLANTA) PO ONE (12:30)
[2021-10-26] MEDS ORDERED: PANTOPRAZOLE 40 MG (PROTONIX) VIAL IV ONE (12:30)
[2021-10-26] MEDS ORDERED: METOCLOPRAMIDE INJ 10 MG/2 ML (REGLAN) IVP ONE (12:45)
[2021-10-26] MEDS ORDERED: PANT40SU PO (12:55)
[2021-10-26] MEDS ORDERED: FAMO-119 PO (12:55)
[2021-10-26] MEDS ORDERED: MAGN250T13 PO (12:57)
[2021-10-26] MEDS ORDERED: POTA-51 PO (12:57)
[2021-10-26] MEDS ORDERED: ONDA4TAB11 PO (12:58)
[2021-10-26] MEDS ORDERED: MAGNESIUM 1 GM/100 ML IVPB 100 ML IV ONE (13:04)
== END 2021-10-26 14:14 | disposition home or self-care (01) ==
LOC: EDUNIT# 09:44 → ER 09:46
DX: K29.00 Acute gastritis without bleeding (principal); E83.42 Hypomagnesemia; E87.6 Hypokalemia; R79.1 Abnormal coagulation profile; E11.40 Type 2 diabetes mellitus with diabetic neuropathy, unspecified; E66.9 Obesity, unspecified; Z79.4 Long term (current) use of insulin; Z68.41 Body mass index [BMI] 40.0-44.9, adult
CPT/HCPCS: 71045; 71275; 74177; 80053; 80306; 81000; 83690; 83735; 83880; 84484; 85025; 85379; 85610; 85730; G0480; 36415; 80320; 93005

== ENCOUNTER 2022-02-23 10:03 | Outpatient (RCR) | payer MEDICARE, MEDICAID ==
[~2022-02-23 10:03] MED LIST changes: +ALBU6.7H13 INH; -ALBU6.7H8 INH; +FAMO-119 PO; +MAGN250T13 PO; +PANT40SU PO; +POTA-177 PO; -POTA10TA37 PO
== END 2022-02-25 | disposition home or self-care (01) ==
PROVIDERS: ATTEND Orthopaedic Surgery
DX: Z47.1 Aftercare following joint replacement surgery (principal); I10 Essential (primary) hypertension; E11.9 Type 2 diabetes mellitus without complications; J45.909 Unspecified asthma, uncomplicated; Z96.651 Presence of right artificial knee joint

== ENCOUNTER → 2022-03-28 | Outpatient (RCR) | payer MEDICARE, MEDICAID ==
[~2022-03-28] MED LIST changes: +ALBU8.5H6 IH; -RT-ALBUINH IH
== END | disposition home or self-care (01) ==
PROVIDERS: ATTEND Orthopaedic Surgery
DX: Z47.1 Aftercare following joint replacement surgery (principal); Z96.651 Presence of right artificial knee joint; I10 Essential (primary) hypertension; E11.9 Type 2 diabetes mellitus without complications; J45.909 Unspecified asthma, uncomplicated

== ENCOUNTER 2022-04-22 02:17 | Emergency (ER) | payer MEDICARE, MEDICAID ==
[~2022-04-22] VITALS: Ht 157.5 cm; Wt 102.5 kg
--- NOTE | 2022-04-22 02:55 | ED Abdominal Pain ---
General Chief Complaint: Abdominal/GI Problems Stated Complaint: VOMITING,HRT BURN,HIGH BLOOD PRESSURE 183/95 Nursing Triage Note: Pt presents with c/o heartburn and vomiting. She states that she was diagnosed with gastritis 2 days ago when she went to her GI doctor. She has been taking new meds as prescribed and it is not helping. Pt reports she has vomited multiple times History of Present Illness Date Seen by Provider: Apr 22, 2022 Time Seen by Provider: 02:42 Initial Comments Patient is a 56-year-old female who presents to the emergency department today with a chief complaint of upper abdominal, chest pain onset today. Nausea vomiting. She was recently diagnosed with "gastritis". She saw Dr. Dorsey in [place]. She was started on some Reglan. She states they told her to stop taking her Protonix. She states that she is very nauseous and cannot hold anything down. She denies blood. No fevers or chills. No productive cough. The pain does not radiate. She is diabetic who used to smoke cigars but now smokes and on nicotine. She does not take medications for high blood pressure. She states she has had previous cardiac evaluation with a "Holter monitor". Nothing makes her symptoms any better or any worse. She states she asked the GI doctor if she should take the Protonix with her Reglan and they told her no so she quit taking it 2 days ago. Timing/Duration: 1-2 Days Severity/Quality: Severe, Burning Location: Epigastric Radiation: No Radiation Activities at Onset: None Associated Symptoms: Heartburn, Nausea/Vomiting Allergies and Home Medications Allergies Coded Allergies: latex (Verified Allergy, Unknown, 02/03/18) sertraline (Verified Allergy, Unknown, 02/03/18) aspirin (Unverified Adverse Reaction, Severe, 11/12/10) Patient Home Medication List Home Medication List Reviewed: Yes Albuterol Sulfate (Ventolin Hfa) 1 Puff Puff, 2 PUFF IH Q4H PRN for SHORTNESS OF BREATH, (Reported) Entered as Reported by: MAXIM CERNA on 07/10/19 1056 Brexpiprazole (Rexulti) 2 Mg Tablet, 2 MG PO DAILY, (Reported) Entered as Reported by: MAXIM CERNA on 07/10/19 1056 Cefdinir (Cefdinir) 300 Mg Capsule, 300 MG PO BID Prescribed by: BONITA CHERRY on 07/13/19 1308 Clonidine HCl (Clonidine HCl) 0.1 Mg Tablet, 0.1 MG PO HS, (Reported) Entered as Reported by: MAXIM CERNA on 07/10/19 1056 Duloxetine HCl (Duloxetine HCl) 60 Mg Capsule.dr, 60 MG PO , (Reported) Entered as Reported by: MAXIM CERNA on 05/10/18 09 Famotidine (Pepcid) 20 Mg Tablet, 20 MG PO BID Prescribed by: ELISSA ULLOA MD on 10/26/21 1255 Folic Acid (Folic Acid) 1 Mg Tablet, 1 MG PO MoTuWeThFrSa, (Reported) Entered as Reported by: MAXIM CERNA on 05/10/18 09 Furosemide (Furosemide) 20 Mg Tablet, 20 MG PO DAILY, (Reported) Entered as Reported by: MAXIM CERNA on 05/10/18 09 Gabapentin (Gabapentin) 600 Mg Tablet, 600 MG PO TID, (Reported) Entered as Reported by: MAXIM CERNA on 05/10/18 09 Glipizide (Glipizide) 5 Mg Tablet, 5 MG PO , (Reported) Entered as Reported by: MAXIM CERNA on 05/10/18 09 Glycerin/Propylene Glycol (Advanced Eye Relief Eye Drops) 15 Ml Drops, 1-2 DROPS OU TID PRN for DRY EYES, (Reported) Entered as Reported by: MAXIM CERNA on 07/10/19 1056 Hydrocodone Bit/Acetaminophen (HYDROcodone/APAP 10/325 TABLET) 1 Each Tablet, 1 TAB PO Q6H PRN for PAIN-MODERATE (5-7), (Reported) Entered as Reported by: MAXIM CERNA on 07/10/19 1109 Insulin Detemir (Levemir Flextouch) 100 Unit/1 Ml Insuln.pen, 15-20 UNIT SQ HS, (Reported) Entered as Reported by: MAXIM CERNA on 07/10/19 1438 Lisinopril/Hydrochlorothiazide (Lisinopril-Hctz 20-25 mg Tab) 1 Each Tablet, 1 TAB PO DAILY, (Reported) Entered as Reported by: MAXIM CERNA on 07/10/19 1056 Loratadine (Loratadine) 10 Mg Tablet, 10 MG PO DAILY, (Reported) Entered as Reported by: MAXIM CERNA on 07/10/19 1056 Magnesium Oxide (Magnesium) 250 Mg Tablet, 250 MG PO DAILY Prescribed by: ELISSA ULLOA MD on 10/26/21 1257 Nabumetone (Nabumetone) 500 Mg Tablet, 500 MG PO BID, (Reported) Entered as Reported by: MAXIM CERNA on 07/10/19 1056 Omeprazole (Omeprazole) 20 Mg Capsule.dr, 20 MG PO DAILY, (Reported) Entered as Reported by: MAXIM CERNA on 05/10/18 09 Ondansetron (Ondansetron Odt) 4 Mg Tab.rapdis, 4 MG PO Q6H Prescribed by: ELISSA ULLOA MD on 10/26/21 1258 Pantoprazole Sodium (Protonix) 40 Mg Granpkt.dr, 40 MG PO DAILY Prescribed by: ELISSA ULLOA MD on 10/26/21 1255 Pioglitazone HCl (Pioglitazone HCl) 30 Mg Tablet, 30 MG PO DAILY, (Reported) Entered as Reported by: MAXIM CERNA on 05/10/18 09 Potassium Chloride (Potassium Chloride) 20 Meq Tablet.er, 20 MEQ PO DAILY, (Reported) Entered as Reported by: MAXIM CERNA on 07/10/19 1109 Potassium Chloride (Potassium Chloride) 10 Meq Tab.er.prt, 10 MEQ PO DAILY Prescribed by: VLAD RUVALCABA on 10/01/20 0006 Potassium Chloride (Potassium Chloride) 20 Meq Tablet.er, 40 MEQ PO DAILY Prescribed by: ELISSA ULLOA MD on 10/26/21 1257 Prednisone (Prednisone) 20 Mg Tab, 20 MG PO DAILY Prescribed by: BONITA CHERRY on 07/13/19 1308 Pseudoephedrine HCl (Sudogest) 60 Mg Tablet, 60 MG PO Q6H PRN for CONGESTION, (Reported) Entered as Reported by: MAXIM CERNA on 05/10/18 09 Spironolactone (Spironolactone) 25 Mg Tablet, 25 MG PO DAILY, (Reported) Entered as Reported by: MAXIM CERNA on 05/10/18 09 Trazodone HCl (Trazodone HCl) 100 Mg Tablet, 100-200 MG PO HS, (Reported) Entered as Reported by: MAXIM CERNA on 07/10/19 1056 Review of Systems Review of Systems Constitutional: see HPI EENTM: No Symptoms Reported Respiratory: No Symptoms Reported Cardiovascular: Chest Pain Gastrointestinal: Abdominal Pain, Nausea, Vomiting Genitourinary: No Symptoms Reported Musculoskeletal: no symptoms reported Skin: no symptoms reported Psychiatric/Neurological: No Symptoms Reported All Other Systems Reviewed Negative Unless Noted: Yes Past Yrlonjb-Vpmvrr-Esqfum Hx Immunizations Up To Date Tetanus Booster (TDap): Unknown Seasonal Allergies Seasonal Allergies: No Past Medical History Surgeries: Yes Section, Tubal Ligation Respiratory: Yes Asthma, Pneumonia Cardiac: Yes (mitral valve prolapse, ) Chronic Edema/Swelling, Hypertension, Palpitations, Valvular Heart Disease Neurological: Yes Neuropathy 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, Menopausal Genitourinary: Yes (NO DIALYSIS) Renal Failure, UTI-Chronic Gastrointestinal: Yes Gastroesophageal Reflux Musculoskeletal: Yes (MERALGIA PARESTHETICA, DERMATOMYOSITIS;CHRONIC HIP PAIN) Arthritis Endocrine: Yes (OBESITY) Diabetes, Insulin dep HEENT: Yes Cancer: No Psychosocial: Yes Anxiety, Bipolar, Depression Integumentary: No Blood Disorders: No Family Medical History No Pertinent Family Hx Physical Exam Vital Signs Vital Signs - First Documented 04/22/22 02:35 Temp 34.6 Pulse 56 Resp 16 B/P (MAP) 173/87 (115) Capillary Refill : Less Than 3 Seconds Height/Weight/BMI Height: 5'2.00" Weight: 243lbs. 0.0oz. 110.687076mb; 41.00 BMI Method:Stated General Appearance: WD/WN, mild distress HEENT: PERRL/EOMI Neck: normal inspection Respiratory: lungs clear, normal breath sounds, no respiratory distress, no accessory muscle use Cardiovascular: regular rate, rhythm Gastrointestinal: normal bowel sounds, non tender, soft Extremities: normal range of motion, normal inspection Neurologic/Psychiatric: alert, normal mood/affect, oriented x 3 Skin: normal color, warm/dry Progress/Results/Core Measures Results/Orders Lab Results Laboratory Tests Test 04/22/22 03:54 Range/Units White Blood Count 9.0 4.3-11.0 10^3/uL Red Blood Count 4.93 3.80-5.11 10^6/uL Hemoglobin 13.0 11.5-16.0 g/dL Hematocrit 40 35-52 % Mean Corpuscular Volume 80 80-99 fL Mean Corpuscular Hemoglobin 26 25-34 pg Mean Corpuscular Hemoglobin Concent 33 32-36 g/dL Red Cell Distribution Width 13.6 10.0-14.5 % Platelet Count 242 130-400 10^3/uL Mean Platelet Volume 9.6 9.0-12.2 fL Immature Granulocyte % (Auto) 0 % Neutrophils (%) (Auto) 83 H 42-75 % Lymphocytes (%) (Auto) 13 12-44 % Monocytes (%) (Auto) 3 0-12 % Eosinophils (%) (Auto) 0 0-10 % Basophils (%) (Auto) 0 0-10 % Neutrophils # (Auto) 7.5 1.8-7.8 10^3/uL Lymphocytes # (Auto) 1.2 1.0-4.0 10^3/uL Monocytes # (Auto) 0.3 0.0-1.0 10^3/uL Eosinophils # (Auto) 0.0 0.0-0.3 10^3/uL Basophils # (Auto) 0.0 0.0-0.1 10^3/uL Immature Granulocyte # (Auto) 0.0 0.0-0.1 10^3/uL Prothrombin Time 13.5 12.2-14.7 SEC INR Comment 1.0 0.8-1.4 Activated Partial Thromboplast Time 34 24-35 SEC Sodium Level 134 L 135-145 MMOL/L Potassium Level 3.5 L 3.6-5.0 MMOL/L Chloride Level 98 98-107 MMOL/L Carbon Dioxide Level 23 21-32 MMOL/L Anion Gap 13 5-14 MMOL/L Blood Urea Nitrogen 15 7-18 MG/DL Creatinine 0.91 0.60-1.30 MG/DL Estimat Glomerular Filtration Rate 74 BUN/Creatinine Ratio 16 Glucose Level 188 H 70-105 MG/DL Calcium Level 9.5 8.5-10.1 MG/DL Corrected Calcium 9.3 8.5-10.1 MG/DL Magnesium Level 1.7 1.6-2.4 MG/DL Total Bilirubin 0.4 0.1-1.0 MG/DL Aspartate Amino Transf (AST/SGOT) 16 5-34 U/L Alanine Aminotransferase (ALT/SGPT) 22 0-55 U/L Alkaline Phosphatase 114 40-136 U/L Myoglobin 52.4 10.0-92.0 NG/ML Troponin I < 0.028 <0.028 NG/ML Total Protein 8.5 H 6.4-8.2 GM/DL Albumin 4.2 3.2-4.5 GM/DL My Orders Orders - KRYSTLE ROSADO MD Ekg Tracing (04/22/22 02:43) Cbc With Automated Diff (04/22/22 02:51) Magnesium (04/22/22 02:51) Chest 1 View, Ap/Pa Only (04/22/22 02:51) Comprehensive Metabolic Panel (04/22/22 02:51) Myoglobin Serum (04/22/22 02:51) Protime With Inr (04/22/22 02:51) Partial Thromboplastin Time (04/22/22 02:51) O2 (04/22/22 02:51) Monitor-Rhythm Ecg Trace Only (04/22/22 02:51) Lipid Panel (04/23/22 06:00) Ed Iv/Invasive Line Start (04/22/22 02:51) Troponin I [place] (04/22/22 02:51) Ondansetron Injection (Zofran Injectio (04/22/22 03:00) Pantoprazole Injection (Protonix Injecti (04/22/22 03:00) Sucralfate Tablet (Carafate Tablet) (04/22/22 05:00) Antacid Suspension (Mylanta Suspension (04/22/22 05:00) Lidocaine 2% Viscous 15 Ml (Xylocaine Vi (04/22/22 05:00) Medications Given in ED Current Medications Medications Dose Ordered Sig/Edel Route Start Time Stop Time Status Last Admin Dose Admin Ondansetron HCl 8 mg ONCE ONCE IVP 04/22/22 03:00 04/22/22 03:01 DC 04/22/22 03:51 8 MG Pantoprazole 40 mg ONCE ONCE IV 04/22/22 03:00 04/22/22 03:01 DC 04/22/22 03:52 40 MG Vital Signs/I&O 04/22/22 02:35 Temp 34.6 Pulse 56 Resp 16 B/P (MAP) 173/87 (115) Blood Pressure Mean: 115 Progress Progress Note : Time: 05:09 Progress Note Patient reexamined, resting comfortably, feels somewhat better. She is a little nauseous again after taking the Carafate. Will add another dose of medication, a little Reglan and Benadryl. She has had max dose of Zofran. Labs reassuring, all within normal limits. Cardiac enzymes, troponin negative. In light of h aving had pain for about 3 hours prior to arrival this episode is not concerning for acute coronary syndrome. EKG normal sinus without ST segment elevation or depression. Renal function is normal. No elevation in her white count. Consideration given to CT abdomen pelvis to rule out further pathology however history and physical exam are not supportive. She is feeling better, I have reassured her that she can take her Protonix with her Reglan as prescribed. I have instructed her to follow-up with Dr. Dorsey and her primary care physician. All questions sought from both the patient and family member at the bedside. Nothing further. Patient is improved at discharge. Initial ECG Impression Date: Apr 22, 2022 Initial ECG Impression Time: 02:54 Initial ECG Rate: 56 Initial ECG Rhythm: S.Lul Initial ECG Intervals PA interval 251 QRS 96 QTC 421 Comment Sinus bradycardia, occasional PVC, first-degree AV block, no ST segment elevation or depression is noted. Diagnostic Imaging Diagonstic Imaging: Xray Plain Films/CT/US/NM/MRI: chest Comments chest xray interpreted by me - normal mediastinal structures; no infiltrates or effusions; normal bony thorax Departure Impression Primary Impression: GERD (gastroesophageal reflux disease) Qualified Codes: K21.9 - Gastro-esophageal reflux disease without esophagitis Additional Impression: Vomiting Qualified Codes: R11.2 - Nausea with vomiting, unspecified Disposition: 01 HOME, SELF-CARE Condition: Improved Departure-Patient Inst. Decision time for Depature: 04:55 Referrals: MANDEEP BOATENG III, MD (PCP) Primary Care Physician Patient Instructions: Acid Reflux and Gastroesophageal Reflux Disease in Adults Add. Discharge Instructions: You can continue your protonix daily. Supplement with Maalox as needed, follow packaging instructions. If you develop a fever or any other emergent, concerning symptoms, please come back to the emergency department for re-evaluation. Follow up with your primary care doctor as well as Dr Crawford. KRYSTLE ROSADO MD 25, 2022 02:55
[2022-04-22] MEDS ORDERED: PANTOPRAZOLE 40 MG (PROTONIX) VIAL IV ONE (03:00)
[2022-04-22] MEDS ORDERED: ONDANSETRON 4 MG/2 ML (SDV) Z0FRAN IVP ONE (03:00)
[2022-04-22 04:15] LABS: BASOPHILS % (AUTO) 0 % (0-10); EOSINOPHILS % (AUTO) 0 % (0-10); HEMATOCRIT 40 % (35-52); LYMPHOCYTES # (AUTO) 1.2 10^3/uL (1.0-4.0); LYMPHOCYTES % (AUTO) 13 % (12-44); MEAN CORPUSCULAR HEMOGLOBIN 26 pg (25-34); MEAN CORPUSCULAR HGB CONC 33 g/dL (32-36); MEAN CORPUSCULAR VOLUME 80 fL (80-99); MEAN PLATELET VOLUME 9.6 fL (9.0-12.2); MONOCYTES # (AUTO) 0.3 10^3/uL (0.0-1.0); MONOCYTES % (AUTO) 3 % (0-12); NEUTROPHILS # (AUTO) 7.5 10^3/uL (1.8-7.8); NEUTROPHILS % (AUTO) 83 % (42-75); PLATELET COUNT 242 10^3/uL (130-400)
[2022-04-22 04:25] LABS: PROTHROMBIN TIME PATIENT 13.5 SEC (12.2-14.7)
[2022-04-22 04:27] LABS: ALBUMIN 4.2 GM/DL (3.2-4.5)
[2022-04-22 04:28] LABS: POTASSIUM 3.5 MMOL/L (3.6-5.0)
[2022-04-22 04:29] LABS: CALCIUM 9.5 MG/DL (8.5-10.1)
[2022-04-22 04:30] LABS: TOTAL PROTEIN 8.5 GM/DL (6.4-8.2)
[2022-04-22 04:32] LABS: BILIRUBIN,TOTAL 0.4 MG/DL (0.1-1.0)
[2022-04-22 04:34] LABS: CREATININE SERUM 0.91 MG/DL (0.60-1.30)
[2022-04-22 04:36] LABS: MAGNESIUM 1.7 MG/DL (1.6-2.4)
[2022-04-22] MEDS ORDERED: LIDOCAINE 2% VISCOUS 15 ML UDC PO ONE (05:00)
[2022-04-22] MEDS ORDERED: ANTACID SUSP 30 ML UDC (MYLANTA) PO ONE (05:00)
[2022-04-22] MEDS ORDERED: SUCRALFATE 1 GM (CARAFATE) TAB PO ONE (05:00)
[2022-04-22] MEDS ORDERED: diphenhydrAMINE 50 MG/ML INJ (BENADRYL) IVP ONE (05:15)
[2022-04-22] MEDS ORDERED: METOCLOPRAMIDE INJ 10 MG/2 ML (REGLAN) IVP ONE (05:15)
[2022-04-22 05:30] VITALS: BP 173/87
--- NOTE | 2022-04-22 08:35 | Diagnostic Imaging Report ---
EXAMINATION: Chest 1 view HISTORY: Chest pain COMPARISON: 10/26/2021 FINDINGS: Heart size and pulmonary vasculature are normal. The lungs are clear without consolidation, pleural effusion, or pneumothorax. The osseous structures are intact. IMPRESSION: 1. No acute radiographic abnormality in the chest. Dictated by: Dictated on workstation # [id number]
== END 2022-04-22 05:30 | disposition home or self-care (01) ==
LOC: EDUNIT# 02:17 → ER 02:20
DX: K21.9 Gastro-esophageal reflux disease without esophagitis (principal); E66.9 Obesity, unspecified; E11.9 Type 2 diabetes mellitus without complications; Z79.4 Long term (current) use of insulin; Z91.040 Latex allergy status; Z68.41 Body mass index [BMI] 40.0-44.9, adult
CPT/HCPCS: 36415; 71045; 80053; 83735; 83874; 84484; 85025; 85610; 85730; 93005; 93041

== ENCOUNTER → 2022-04-27 | Outpatient (RCR) | payer MEDICARE, MEDICAID | END | disposition home or self-care (01) | PROVIDERS: ATTEND Orthopaedic Surgery | DX: Z47.1 Aftercare following joint replacement surgery (principal); I10 Essential (primary) hypertension; E11.9 Type 2 diabetes mellitus without complications; J45.909 Unspecified asthma, uncomplicated; Z96.651 Presence of right artificial knee joint ==

== ENCOUNTER 2022-04-29 11:20 | Outpatient (RCR) | payer MEDICARE, MEDICAID | END 2022-04-29 15:34 | disposition home or self-care (01) | PROVIDERS: ATTEND Orthopaedic Surgery | DX: M17.11 Unilateral primary osteoarthritis, right knee (principal); I10 Essential (primary) hypertension; E11.9 Type 2 diabetes mellitus without complications; J45.909 Unspecified asthma, uncomplicated; Z96.651 Presence of right artificial knee joint ==

== ENCOUNTER → 2022-04-29 | Outpatient (CLI) | payer MEDICARE, MEDICAID ==
--- NOTE | 2022-04-29 09:31 | Diagnostic Imaging Report ---
PROCEDURE: US Gallbladder. INDICATION: Abdominal pain TECHNIQUE: Multiple grayscale sonographic images were obtained of the right upper quadrant of the abdomen. CORRELATION STUDY: None FINDINGS: LIVER: There is uniform echotexture within the visualized portions of the liver. The main portal vein is patent and with normal direction of flow. Liver length 16.8 cm GALLBLADDER: [place], shadowing gallstone is present. No abnormal gallbladder wall thickening. Sonographic Gordon sign is negative. COMMON BILE DUCT: Nondilated at 0.5 cm. AORTA/IVC: Not well visualized. PANCREAS: Visualized portions appearing unremarkable. RIGHT KIDNEY: 10.6 x 4.4 x 4.9 cm. No hydronephrosis. OTHER: None. IMPRESSION: 1. Cholelithiasis. No sonographic evidence to currently suggest acute cholecystitis. Dictated by: Dictated on workstation # [id number]
== END ==
LOC: RAD 08:36
PROVIDERS: ATTEND Internal Medicine Gastroenterology
DX: K80.20 Calculus of gallbladder without cholecystitis without obstruction (principal)
CPT/HCPCS: 76705

== ENCOUNTER → 2022-10-27 | Outpatient (CLI) | payer MEDICARE, MEDICAID ==
[~2022-10-27] VITALS: Ht 157 cm; Wt 96.0 kg
[~2022-10-27] MED LIST changes: +CATHETER FLUSH 10 ML SYR IVP PRN; -INSU100I29 SQ; +INSU100I30 SQ; +REGADENOSON 0.4 MG/5 ML SYR (LEXISCAN) IV ONE
[2022-10-27 11:46] VITALS: BP 120/44
--- NOTE | 2022-10-27 23:18 | STRESS TEST ---
DATE OF SERVICE: 10/27/2022 RESTING AND POST REGADENOSON TECHNETIUM-99M TETROFOSMIN SPECT CT IMAGING ORDERING PHYSICIAN: Melissa Whalen APRN. PRIMARY PHYSICIAN: Dr. Jan Warren OTHER PHYSICIAN: Dr. Nafisa Mendoza. CLINICAL DIAGNOSIS: Shortness of breath. Baseline images were carried out, after injection of 10.36 mCi of technetium-99m tetrofosmin. This was followed by 0.4 mg regadenoson and 31.7 mCi of technetium-99m tetrofosmin for stress imaging. Electrocardiogram showed sinus rhythm at baseline. It did not change significantly with the regadenoson infusion. The patient tolerated the procedure well. Review of images at rest and following stress does not indicate any distinct perfusion defects consistent with significant myocardial ischemia or infarction. Gated images show normal global left ventricular systolic function with normal regional wall motion. Left ventricular ejection fraction is calculated to be 54%. CONCLUSIONS: 1. No evidence of any significant myocardial ischemia or infarction in this study. 2. Normal regional wall motion. 3. Normal global left ventricular systolic function with a calculated ejection fraction of 54%. Job ID: [id number] DocumentID: [id number] Dictated Date: 10/27/2022 19:10:43 Shaker Screen Operator Date: 10/27/2022 23:16:00 Dictated By: NAFISA MENDOZA MD; LOPEZ; FACP; FACC;
== END ==
LOC: CARD 11:00
PROVIDERS: ATTEND Nurse Practitioner Family
DX: R06.02 Shortness of breath (principal); R94.39 Abnormal result of other cardiovascular function study
CPT/HCPCS: 78452; 93017; A9502

== ENCOUNTER → 2022-11-10 | Outpatient (CLI) | payer MEDICARE, MEDICAID ==
[~2022-11-10] MED LIST changes: -CATHETER FLUSH 10 ML SYR IVP PRN; +POTA-330 PO; -POTA-51 PO; -REGADENOSON 0.4 MG/5 ML SYR (LEXISCAN) IV ONE
[2022-11-10 11:48] LABS: BASOPHILS % (AUTO) 1 % (0-10); EOSINOPHILS # (AUTO) 0.2 10^3/uL (0.0-0.3); EOSINOPHILS % (AUTO) 3 % (0-10); HEMATOCRIT 42 % (35-52); HEMOGLOBIN 13.7 g/dL (11.5-16.0); LYMPHOCYTES # (AUTO) 1.6 10^3/uL (1.0-4.0); LYMPHOCYTES % (AUTO) 28 % (12-44); MEAN CORPUSCULAR HEMOGLOBIN 26 pg (25-34); MEAN CORPUSCULAR HGB CONC 33 g/dL (32-36); MEAN CORPUSCULAR VOLUME 78 fL (80-99); MEAN PLATELET VOLUME 9.3 fL (9.0-12.2); MONOCYTES # (AUTO) 0.5 10^3/uL (0.0-1.0); MONOCYTES % (AUTO) 8 % (0-12); NEUTROPHILS # (AUTO) 3.3 10^3/uL (1.8-7.8); NEUTROPHILS % (AUTO) 60 % (42-75); PLATELET COUNT 211 10^3/uL (130-400); WHITE BLOOD COUNT 5.6 10^3/uL (4.3-11.0)
[2022-11-10 12:09] LABS: ERYTHROCYTE SEDIMENTATION RATE 11 MM/HR (0-30)
== END ==
LOC: LAB 11:08
PROVIDERS: ATTEND Internal Medicine Rheumatology
DX: M33.90 Dermatopolymyositis, unspecified, organ involvement unspecified (principal); Z79.899 Other long term (current) drug therapy
CPT/HCPCS: 36415; 82550; 85025; 85652; 86141

== ENCOUNTER 2023-01-12 02:49 | Emergency (ER) | payer MEDICARE, MEDICAID ==
[~2023-01-12] VITALS: Ht 157.4 cm; Wt 94.3 kg
[2023-01-12] MEDS ORDERED: OXYC1TAB11 PO (03:14)
[2023-01-12] MEDS ORDERED: RX-OXYCODONE/APAP 5-325 MG #4 TAB PK PO PRN (03:15)
[2023-01-12] MEDS ORDERED: morphine INJ 4 MG/ML 1 ML (VIAL/SYRINGE) IM ONE (03:15)
--- NOTE | 2023-01-12 03:15 | ED Lower Extremity ---
General Stated Complaint: POST OP LEFT KNEE PAIN Source: patient History of Present Illness Date Seen by Provider: Jan 12, 2023 Time Seen by Provider: 02:58 Initial Comments PT ARRIVES VIA POV FROM HOME WITH DAUGHTER ( ALSO HAS GRAND DAUGHTER AT HOME TO HELP) PT WALKS IN WITH WALKER AND HAS A GAIT BELT ON PT HAD LEFT KNEE REPLACEMENT 01/10/[address] BOATENG AT [facility] 4 STATES IN [place] SHE WAS DISMISSED 01/11/23. GOT HOME AROUND [id number] SHE WAS PRESCRIBED HYDROCODONE FOR PAIN. SHE HAS TAKEN A TOTAL OF 2 PILLS SINCE SHE GOT HOME. HER LAST PILL WAS AT 0100 SHE STATES IT IS NOT HELPING AT ALL SHE ALSO REPORTS THAT SHE HAD A "BLOCK" TO HER LEG WELL, AND STATES IT IS WEARING OFF. SHE IS NOT HAVING ANY NUMBNESS OR TINGLING DISTALLY SHE IS NOT HAVING ANY FEVER NO CHEST PAIN OR SHORTNESS OF BREATH IN ADDITION TO HYDROCODONE. SHE WAS ALSO STARTED ON ELIQUIS AND DOXYCYCLINE WELL STOOL SOFTENER. SHE HAS HAD PRIOR RIGHT KNEE REPLACEMENT IN THE PAST. PT IS DIABETIC, HAS HTN, HYPERLIPIDEMIA Allergies and Home Medications Allergies Coded Allergies: latex (Verified Allergy, Unknown, 02/03/18) sertraline (Verified Allergy, Unknown, 02/03/18) aspirin (Unverified Adverse Reaction, Severe, 11/12/10) Patient Home Medication List Home Medication List Reviewed: Yes Albuterol Sulfate (Ventolin Hfa) 1 Puff Puff, 2 PUFF IH Q4H PRN for SHORTNESS OF BREATH, (Reported) Entered as Reported by: MAXIM CERNA on 07/10/19 1056 Brexpiprazole (Rexulti) 2 Mg Tablet, 2 MG PO DAILY, (Reported) Entered as Reported by: MAXIM CERNA on 07/10/19 1056 Cefdinir (Cefdinir) 300 Mg Capsule, 300 MG PO BID Prescribed by: BONITA CHERRY on 07/13/19 1308 Clonidine HCl (Clonidine HCl) 0.1 Mg Tablet, 0.1 MG PO HS, (Reported) Entered as Reported by: MAXIM CERNA on 07/10/19 1056 Duloxetine HCl (Duloxetine HCl) 60 Mg Capsule.dr 60 MG PO 799,1999, (Reported) Entered as Reported by: MAXIM CERNA on 05/10/18 0911 Famotidine (Pepcid) 20 Mg Tablet, 20 MG PO BID Prescribed by: ELISSA ULLOA MD on 10/26/21 1255 Folic Acid (Folic Acid) 1 Mg Tablet, 1 MG PO [id number], (Reported) Entered as Reported by: MAXIM CERNA on 05/10/18910 Furosemide (Furosemide) 20 Mg Tablet, 20 MG PO DAILY, (Reported) Entered as Reported by: MAXIM CERNA on 05/10/18910 Gabapentin (Gabapentin) 600 Mg Tablet, 600 MG PO TID, (Reported) Entered as Reported by: MAXIM CERNA on 05/10/18910 Glipizide (Glipizide) 5 Mg Tablet, 5 MG PO 799,1999, (Reported) Entered as Reported by: MAXIM CERNA on 05/10/18910 Glycerin/Propylene Glycol (Advanced Eye Relief Eye Drops) 15 Ml Drops, 1-2 DROPS OU TID PRN for DRY EYES, (Reported) Entered as Reported by: MAXIM CERNA on 07/10/19 1056 Hydrocodone Bit/Acetaminophen (HYDROcodone/APAP 10/325 TABLET) 1 Each Tablet, 1 TAB PO Q6H PRN for PAIN-MODERATE (5-7), (Reported) Entered as Reported by: MAXIM CERNA on 07/10/19 1109 Insulin Detemir (Levemir Flextouch) 100 Unit/1 Ml Insuln.pen, 15-20 UNIT SQ HS, (Reported) Entered as Reported by: MAXIM CERNA on 07/10/19 1438 Lisinopril/Hydrochlorothiazide (Lisinopril-Hctz 20-25 mg Tab) 1 Each Tablet, 1 TAB PO DAILY, (Reported) Entered as Reported by: MAXIM CERNA on 07/10/19 1056 Loratadine (Loratadine) 10 Mg Tablet, 10 MG PO DAILY, (Reported) Entered as Reported by: MAXIM CERNA on 07/10/19 1056 Magnesium Oxide (Magnesium) 250 Mg Tablet, 250 MG PO DAILY Prescribed by: ELISSA ULLOA MD on 10/26/21 1257 Nabumetone (Nabumetone) 500 Mg Tablet, 500 MG PO BID, (Reported) Entered as Reported by: MAXIM CERNA on 07/10/19 1056 Omeprazole (Omeprazole) 20 Mg Capsule.dr, 20 MG PO DAILY, (Reported) Entered as Reported by: MAXIM CERNA on 05/10/18 0911 Ondansetron (Ondansetron Odt) 4 Mg Tab.rapdis, 4 MG PO Q6H Prescribed by: ELISSA ULLOA MD on 10/26/21 1258 Oxycodone HCl/Acetaminophen (Oxycodone-Acetaminophen 5-325) 5 Mg-325 Mg Tablet, 1 EACH PO Q4H PRN for PAIN-MODERATE Prescribed by: VLAD RUVALCABA on 01/12/23 0315 Pantoprazole Sodium (Protonix) 40 Mg Granpkt.dr, 40 MG PO DAILY Prescribed by: ELISSA ULLOA MD on 10/26/21 1255 Pioglitazone HCl (Pioglitazone HCl) 30 Mg Tablet, 30 MG PO DAILY, (Reported) Entered as Reported by: MAXIM CERNA on 05/10/18 09 Potassium Chloride (Potassium Chloride) 20 Meq Tablet.er, 20 MEQ PO DAILY, (Reported) Entered as Reported by: MAXIM CERNA on 07/10/19 1109 Potassium Chloride (Potassium Chloride) 10 Meq Tab.er.prt, 10 MEQ PO DAILY Prescribed by: VLAD RUVALCABA on 10/01/20 0006 Potassium Chloride (Potassium Chloride) 20 Meq Tablet.er, 40 MEQ PO DAILY Prescribed by: ELISSA ULLOA MD on 10/26/21 1257 Prednisone (Prednisone) 20 Mg Tab, 20 MG PO DAILY Prescribed by: BONITA CHERRY on 07/13/19 1308 Pseudoephedrine HCl (Sudogest) 60 Mg Tablet, 60 MG PO Q6H PRN for CONGESTION, (Reported) Entered as Reported by: MAXIM CERNA on 05/10/18 09 Spironolactone (Spironolactone) 25 Mg Tablet, 25 MG PO DAILY, (Reported) Entered as Reported by: MAXIM CERNA on 05/10/18 09 Trazodone HCl (Trazodone HCl) 100 Mg Tablet, 100-200 MG PO HS, (Reported) Entered as Reported by: MAXIM CERNA on 07/10/19 1056 Review of Systems Constitutional: no symptoms reported Musculoskeletal: see HPI Skin: no symptoms reported Psychiatric/Neurological: No Symptoms Reported Past Lsegxwg-[id number]-Aigfdp Hx Patient Social History Tobacco Use?: No Substance use?: No Alcohol Use?: No Immunizations Up To Date Tetanus Booster (TDap): Unknown First/Initial COVID19 Vaccinat: UNKNOWN Second COVID19 Vaccination Yossi: UNKNOWN Third COVID19 Vaccination Date: UNKNOWN Seasonal Allergies Seasonal Allergies: No Past Medical History Surgeries: Yes (BILATERAL KNEE REPLACEMENT) Section, Joint Replacement, Orthopedic, Tubal Ligation Respiratory: Yes Asthma, Pneumonia Cardiac: Yes (mitral valve prolapse, ) Chronic Edema/Swelling, High Cholesterol, Hypertension, Palpitations, Valvular Heart Disease Neurological: Yes Neuropathy 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 BOATENG AT [address]/[place] Physical Exam Vital Signs Vital Signs - First Documented 01/12/23 03:00 Temp 36.3 Pulse 71 B/P (MAP) 122/81 (95) O2 Delivery Room Air Capillary Refill : Height, Weight, BMI Height: 5'2.00" Weight: 243lbs. 0.0oz. [id number]; 38.94 BMI Method:Stated General Appearance: WD/WN, no apparent distress, obese HEENT: other (EDENTULOUS) Cardiovascular: normal peripheral pulses, regular rate, rhythm, no murmur Respiratory: normal breath sounds Hips: left hip non-tender Legs: left leg non-tender, left leg other (TRACE SWELLING TO LEFT LOWER LEG. NO CALF TENDERNESS. DISTAL MOTOR/SENSORY/VASCULAR INTACT.) Knees: left knee other (SURGICAL SITE TO LEFT KNEE WITH DRESSING IN PLACE. IS DRY AND INTACT. SMALL AREA OF OLD/DRIED BLOOD. NO SIGNS OF INFECTION. NO CALF TENDERNESS. MILD SWELLING--NORMAL POST OP APPEARANCE. ) Ankles: left ankle normal inspection Feet: left foot normal inspection Neurologic/Psychiatric: no motor/sensory deficits, alert, normal mood/affect, oriented x 3 Skin: normal color (PT IS BLACK), warm/dry Progress/Results/Core Measures Results/Orders My Orders Orders - VLAD RUVALCABA DO Morphine Injection (Morphine Injection (01/12/23 03:15) Rx-Oxycodone/Apap 5-325 Mg (Rx-Percocet (01/12/23 03:15) Medications Given in ED Current Medications Medications Dose Ordered Sig/Edel Route Start Time Stop Time Status Last Admin Dose Admin Morphine Sulfate 4 mg ONCE ONCE IM 01/12/23 03:15 01/12/23 03:16 DC 01/12/23 03:20 4 MG Oxycodone/ Acetaminophen 1 ea Q4H PRN PO 01/12/23 03:15 01/12/23 03:20 1 EA Vital Signs/I&O 01/12/23 03:00 Temp 36.3 Pulse 71 B/P (MAP) 122/81 (95) O2 Delivery Room Air Progress Progress Note : Progress Note GIVEN MORPHINE IM SENT HOME WITH TAKE HOME PACK OF OXYCODONE WILL SWITCH FROM HYDROCODONE TO OXYCODONE FOR THE NEXT COUPLE OF DAYS, PT ADVISED NOT TO TAKE BOTH AT SAME TIME. PT HAS TAKEN OXYCODONE IN THE PAST AND NOT HAD PROBLEMS DISCUSSED IMPORTANCE OF FOLLOW UP WITH HER SURGEON REGARDING PAIN MANAGEMENT ALSO DISCUSSED IMPORTANCE OF USING MIRALAX AND STOOL SOFTENER DAILY TO PREVENT CONSTIPATION PT IS TO START PHYSICAL THERAPY AT 0930 THIS AM SHE HAS A SCHEDULED FOLLOW UP APPOINTMENT WITH PA AT [address] ON 02/01/23 REVIEWED PRIOR RECORDS INCLUDING ER VISTS, ADMITS, TESTS/PROCEDURES. Departure Impression Primary Impression: Post-operative pain Additional Impression: Status post left knee replacement Disposition: 01 HOME, SELF-CARE Condition: Stable Departure-Patient Inst. Decision time for Depature: 03:12 Referrals: JUSTICE SYED APRN (PCP/Family) Primary Care Physician Patient Instructions: Postoperative Pain (DC), Opioids for Short-Term Treatment of Pain ED Add. Discharge Instructions: CONTINUE ALL POST OP INSTRUCTIONS DO NOT TAKE HYDROCODONE --IT IS BEING REPLACED WITH OXYCODONE FOLLOW UP WITH YOUR SURGEON THIS WEEK FOR FURTHER CARE--CALL OFFICE TODAY TO MAKE AN APPOINTMENT Scripts Oxycodone HCl/Acetaminophen (Oxycodone-Acetaminophen 5-325) 5 Mg-325 Mg Tablet 1 EACH PO Q4H PRN for PAIN-MODERATE MDD 6 for 3 Days, #12 TAB 0 Refills Prov: VLAD RUVALCABA DO 01/12/23 VLAD RUVALCABA DO Jan 12, 2023 03:15
[2023-01-12 03:37] VITALS: BP 145/87
== END 2023-01-12 03:37 | disposition home or self-care (01) ==
LOC: EDUNIT# 02:49 → ER 02:52
DX: G89.18 Other acute postprocedural pain (principal); M25.562 Pain in left knee; E66.9 Obesity, unspecified; E11.9 Type 2 diabetes mellitus without complications; F17.210 Nicotine dependence, cigarettes, uncomplicated; Z96.652 Presence of left artificial knee joint; Z79.4 Long term (current) use of insulin; Z91.040 Latex allergy status; Z88.6 Allergy status to analgesic agent; Z68.38 Body mass index [BMI] 38.0-38.9, adult
CPT/HCPCS: 99285

== ENCOUNTER 2023-01-25 09:40 | Outpatient (RCR) | payer MEDICARE, MEDICAID ==
[~2023-01-25 09:40] MED LIST changes: +OXYC1TAB11 PO
== END 2023-01-26 | disposition home or self-care (01) ==
PROVIDERS: ATTEND Orthopaedic Surgery
DX: Z47.1 Aftercare following joint replacement surgery (principal); Z96.652 Presence of left artificial knee joint; E11.9 Type 2 diabetes mellitus without complications

== ENCOUNTER 2023-02-24 09:51 | Outpatient (RCR) | payer MEDICARE, MEDICAID | END 2023-02-25 | disposition home or self-care (01) | PROVIDERS: ATTEND Orthopaedic Surgery | DX: Z47.1 Aftercare following joint replacement surgery (principal); E11.9 Type 2 diabetes mellitus without complications; Z96.652 Presence of left artificial knee joint ==

== ENCOUNTER 2023-03-27 09:45 | Outpatient (RCR) | payer MEDICARE, MEDICAID ==
[~2023-03-27 09:45] MED LIST changes: -GLIP5TAB13 PO; +GLIP5TAB23 PO
== END 2023-03-28 | disposition home or self-care (01) ==
PROVIDERS: ATTEND Orthopaedic Surgery
DX: Z47.1 Aftercare following joint replacement surgery (principal); E11.9 Type 2 diabetes mellitus without complications; Z96.652 Presence of left artificial knee joint

== ENCOUNTER 2023-04-19 09:06 | Outpatient (RCR) | payer MEDICARE, MEDICAID | END 2023-04-27 | disposition home or self-care (01) | PROVIDERS: ATTEND Orthopaedic Surgery | DX: Z47.1 Aftercare following joint replacement surgery (principal); E11.9 Type 2 diabetes mellitus without complications; Z96.652 Presence of left artificial knee joint ==